=== PATIENT | male | born 1965 | race Caucasian/White ===

== ENCOUNTER 2019-09-05 12:47 | Outpatient (CLI) | payer BC, SELFPAY ==
[2019-09-05 13:44] LABS: Basophils Percent Auto 0.4 % (0.2-1.2); Eosinophils Absolute Auto 0.1 K/mm3 (0-0.3); Eosinophils Percent Auto 3.3 % (0-4.4); Hematocrit 29.6 % (42.0-52.0); Hemoglobin 9.5 g/dL (14.0-18.0); Immature Granulocyte Absolute 0.01 K/mm3 (0.00-0.031); Immature Granulocyte Percent A 0.4 % (0-0.5); Lymphocytes Percent Auto 16.7 % (18.3-44.2); Mean Corpuscular HGB Conc 32.1 g/dl (32-36); Mean Corpuscular Hemoglobin 31.5 pg (26-34); Mean Platelet Volume 10.4 fl (7.4-10.4); Monocytes Absolute Auto 0.1 K/mm3 (0.1-0.6); Monocytes Percent Auto 5.4 % (2.6-8.5); Neutrophils Absolute Auto 1.8 K/mm3 (1.3-6.7); Neutrophils Percent Auto 73.8 % (45.5-73.1); Red Blood Count 3.02 M/mm3 (4.6-6.20); Red Cell Distribution Width 14.3 % (11.5-14.5); White Blood Count 2.4 K/mm3 (4.5-10.0)
[2019-09-05 14:00] LABS: Calcium 8.6 mg/dL (8.4-10.2); Carbon Dioxide 11 mmol/L (22-30); Chloride 106 mmol/L (98-107); Estimated Glomerular Filt Rate 4; Glucose 167 mg/dL (75-110); Phosphorus 9.9 mg/dL (2.5-4.5); Potassium 4.3 mmol/L (3.4-5.0); Sodium 136 mmol/L (137-145)
[2019-09-05 14:13] LABS: Blood Urea Nitrogen 150 mg/dL (9-20)
[2019-09-05 14:26] LABS: Platelet Count Result 19 k/mm3 (150-375)
== END 2019-09-05 12:48 | disposition home or self-care (01) ==
PROVIDERS: Visit Provider Internal Medicine Nephrology
DX: N18.6 End stage renal disease (principal)
CPT/HCPCS: 36415; 80069; 85025; 85055

== ENCOUNTER 2021-05-06 02:57 | Inpatient (IN) | payer MEDICARE, BC, SELFPAY ==
[2021-05-06] VITALS (47 sets, daily range): BP systolic 96–178; BP diastolic 59–87; PULSE 70–113; RESP 10–24; TEMP 35.7–37; O2SAT 94–100; BMI 27.7
--- NOTE | ~2021-05-06 | XR_ITS ---
EXAMINATION: XR chest 1V portable DATE: 05/07/2021 05:56 INDICATION: Intubated TECHNIQUE: frontal view of the chest was obtained. COMPARISON: Chest radiograph dated 05/06/2021 FINDINGS: Endotracheal tube tip 6 cm above the chaz. Nasogastric tube tip in proximal side port in the body o f the stomach. Large-bore dual-lumen right internal jugular central venous catheter with distal tip a t the superior cavoatrial junction. Mild linear discoid atelectasis at the right lung base. No other airspace opacities, pulmonary edema, pleural effusion or pneumothorax. The cardiomediastinal silhouette is normal. IMPRESSION: 1. Endotracheal tube tip 6 cm above the chaz. Consider advancement by 3.4 cm. 2. Mild right basilar discoid atelectasis. Reviewed, dictated and finalized at location A.
--- NOTE | ~2021-05-06 | CT_ITS ---
EXAMINATION: CT brain wo con INDICATION: Head injury COMPARISON: None TECHNIQUE: Standard unenhanced head CT. The dose-length product (DLP) was 681.00 mGy-cm. The mA was a djusted according to patient size. Iterative reconstruction technique was employed. FINDINGS: There is no intracranial hemorrhage, acute infarction, or abnormal mass lesion. The ventric les are normal. There is no abnormal mass effect or midline shift. The grace-white matter differentiat ion is normal. The basal cisterns are patent. Intracranial calcified cerebral atherosclerosis is note d. The orbits are normal. There is a large left maxillary soft tissue hematoma. There is partial opac ification of the left maxillary sinus. IMPRESSION: 1. No acute intracranial abnormality. 2. Large left maxillary soft tissue hematoma. Reviewed, dictated and finalized at location B.
--- NOTE | ~2021-05-06 | XR_ITS ---
XR chest ET placement DATE: 05/06/2021 18:15 INDICATION: Intubation TECHNIQUE: Portable AP chest on 05/06/2021 at 1805 hours COMPARISON: 05/06/2021 portable AP chest at 0326 hours FINDINGS: ET tube placement since earlier today, with ET tube tip 4.8 cm above chaz in satisfactory position. NG tube is noted in the stomach. Right internal jugular dual lumen central venous catheter, distal tip at superior cavoatrial junction . No evidence of pneumothorax is noted. Minimal infiltrate or atelectasis is suggested in the lower lung zones. No pleural effusion or pulmon gera vascular congestion. Heart size is likely within normal limits considering magnification associated with AP projection. Th ere is aortic calcification. Diffuse osteopenia. IMPRESSION: ET tube and NG tube in satisfactory position Right internal jugular central venous catheter tip at superior cavoatrial junction; no pneumothorax Minimal infiltrate or atelectasis in the lower lung zones Reviewed, dictated and finalized at [facility]. Reviewed, dictated and finalized at location A. IMPRESSION: ET tube and NG tube in satisfactory position Right internal jugular central venous catheter tip at superior cavoatrial junct ion; no pneumothorax Minimal infiltrate or atelectasis in the lower lung zones
--- NOTE | ~2021-05-06 | CT_ITS ---
EXAMINATION: CT brain wo con DATE: 05/06/2021 17:14 INDICATION: Falls. On blood thinners. TECHNIQUE: Computed tomography (CT) of the head was performed without intravenous contrast. The mA wa s adjusted according to patient size. Iterative reconstruction technique was employed. Exam dose: 13 62.00 mGy-cm total exam DLP. COMPARISON: None FINDINGS: The examination is very limited due to prominent patient motion. Again noted is a very prominent left maxillary soft tissue hematoma. No skull fracture is evident. No intracranial mass lesion or obvious hemorrhage or subdural or epidural hematoma is evident; but ve ry small cerebral contusion or subdural hematoma might be obscured by the motion artifact. No midline shift or mass effect. Normal ventricular size. Bilateral maxillary sinus soft tissue thickening, prominent on the left.. IMPRESSION: Very limited examination due to motion Reviewed, dictated and finalized at [facility]. Reviewed, dictated and finalized at location A.
--- NOTE | ~2021-05-06 | CT_ITS ---
EXAMINATION: CT chest abdomen pelvis w con DATE: 05/06/2021 03:55 INDICATION: Fall with diffuse bruising throughout the body. TECHNIQUE: Computed tomography (CT) of the chest, abdomen, and pelvis was performed with 100 mL Omnip aque-350 intravenous contrast. Automated exposure control and iterative reconstruction technique were employed. The dose-length product was 1327.67 mGy-cm. COMPARISON: CT abdomen and pelvis dated 04/17/1990 FINDINGS: CHEST CT: Lungs are clear with no pneumonia, pulmonary edema, pleural effusion or pneumothorax. Heart size is n ormal. Atherosclerotic coronary artery calcific lesions. No pericardial effusion. Additional atherosc lerotic calcific a cyst along the normal caliber thoracic aorta with no dissection. No pathologically enlarged thoracic lymphadenopathy. Mildly comminuted nondisplaced fracture extending across the ster num with some sclerosis but no cortication along the nonunited fracture line suggesting subacute radiochemical technician nicity. Nonocclusive thrombus is seen within the right internal jugular vein proximal to a large-bore dual-lumen right internal jugular central venous catheter with distal tip of which is located at the superior cavoatrial junction. ABDOMEN/PELVIS CT: Shrunken and nodular cirrhotic liver. Multiple calcified gallstones in the dependent aspect of the ot herwise normal-appearing gallbladder with no gallbladder dilation or wall thickening to suggest acute cholecystitis. Prominent splenomegaly measuring 20.6 x 20.2 x 10.2 cm which along with large splenor enal collaterals consistent with portal venous hypertension. Pancreas bilateral adrenal glands are no rmal. Mild to moderate bilateral renal atrophy. 9 mm left renal cyst. Increased at multiple bilateral renal calyces which appears to layer dependently which could represent either excreted contrast or n onobstructing renal stones. No nephrolithiasis evident on the earlier noncontrast CT and favor the fo rmer. No abnormal bowel wall thickening or obstruction. Moderate amount of ascites scattered througho ut the abdomen and pelvis. Decompressed bladder is unremarkable. Small left and large right fat-conta ining inguinal hernias. No pathologically enlarged abdominal or pelvic lymphadenopathy. Moderate lumb osacral spondylosis. Otherwise mild degenerative skeletal changes throughout the more cephalad spine and at the bilateral hips and sacroiliac joints. No other acute osseous abnormality. IMPRESSION: 1. Likely subacute mildly comminuted nondisplaced nonunited sternal fracture. 2. Nonocclusive thrombus in the right internal jugular vein propagating proximally from the site of i nsertion of a right internal jugular central venous catheter. 3. Cirrhosis with moderate amount of ascites and marked splenomegaly and splenorenal collaterals cons istent with portal venous hypertension. 4. Cholelithiasis. 5. Small left and large right fat-containing inguinal hernias. Reviewed, dictated and finalized at location A. IMPRESSION: 1. Likely subacute mildly comminuted nondisplaced nonunited sternal fracture. 2. Nonocclusive thrombus in the right internal jugular vein propagating proxima lly from the site of insertion of a right internal jugular central venous ashely ter. 3. Cirrhosis with moderate amount of ascites and marked splenomegaly and spleno renal collaterals consistent with portal venous hypertension. 4. Cholelithiasis. 5. Small left and large right fat-containing inguinal hernias.
--- NOTE | ~2021-05-06 | CT_ITS ---
EXAMINATION: CT brain wo con DATE: 05/06/2021 20:56 INDICATION: Falls. Patient on anticoagulant therapy. TECHNIQUE: Computed tomography (CT) of the head was performed without intravenous contrast. The mA wa s adjusted according to patient size. Iterative reconstruction technique was employed. Exam dose: 60 5.33 mGy-cm total exam DLP. COMPARISON: 05/06/2021 CT brain FINDINGS: Bilateral carotid siphon internal carotid artery calcification. No intracranial mass lesion or hemorrhage or cerebrovascular accident, midline shift or mass effect o r subdural or epidural hematoma is detected. Normal ventricular size. There is a fluid level in left maxillary sinus. No fracture or bone destruction of the cranial vault. IMPRESSION: Cerebral atherosclerosis No significant intracranial abnormality Reviewed, dictated and finalized at [facility]. Reviewed, dictated and finalized at location A.
--- NOTE | ~2021-05-06 | XR_ITS ---
EXAMINATION: XR chest 1V portable DATE: 05/06/2021 03:28 INDICATION: Shortness of breath TECHNIQUE: frontal view of the chest was obtained. COMPARISON: Chest radiograph dated 01/22/2019 FINDINGS: A large-bore dual-lumen right internal jugular central venous port catheter with distal tip at the ca udal superior vena cava. Persistent mild streaky left basilar atelectasis. No new airspace opacities, pulmonary edema, pleural effusion or pneumothorax. The cardiomediastinal silhouette is normal. IMPRESSION: 1. Mild left basilar atelectasis. Reviewed, dictated and finalized at location A.
--- NOTE | ~2021-05-06 | XR_ITS ---
EXAMINATION: XR chest 1V portable DATE: 05/13/2021 05:44 INDICATION: Respiratory failure. TECHNIQUE: A single frontal view of the chest was obtained. COMPARISON: Chest single view 05/12/2021 FINDINGS: There are airspace opacities in medial left lower lobe. No pleural effusion or pneumothorax . The heart size is normal. A right internal jugular central venous catheter is seen with tip at the superior cavoatrial junction. IMPRESSION: 1. Worsened airspace opacities in medial left lower lobe, consistent with atelectasis versus pneumoni a. Reviewed, dictated and finalized at location A. ON REPAIRER IMPRESSION: 1. Worsened airspace opacities in medial left lower lobe, consistent with atele ctasis versus pneumonia.
--- NOTE | ~2021-05-06 | XR_ITS ---
EXAMINATION: XR chest 1V portable DATE: 05/10/2021 05:43 INDICATION: Respiratory failure. TECHNIQUE: A single frontal view of the chest was obtained. COMPARISON: Chest single view 05/09/2021, chest CT 05/06/2021 FINDINGS: There is mild atelectasis at left lung base. There are interstitial opacities in the mid an d lower lung zones, consistent with mild pulmonary edema. No pleural effusion or pneumothorax. The he art size is normal. There is a right internal jugular central venous catheter with tip in proximal ri ght atrium. IMPRESSION: 1. Mild pulmonary edema. Reviewed, dictated and finalized at location A. ESSOR OF SOCIAL WORK IMPRESSION: 1. Mild pulmonary edema.
--- NOTE | ~2021-05-06 | CT_ITS ---
EXAMINATION: CT facial & cervical spine wo DATE: 05/06/2021 03:54 INDICATION: Head injury TECHNIQUE: Computed tomography (CT) of the maxillofacial region and cervical spine was performed with out intravenous contrast. The dose-length product (DLP) was 467.38 mGy-cm. Automated exposure control and iterative reconstruction technique were employed. COMPARISON: None FINDINGS: MAXILLOFACIAL CT: There is a large left maxillary soft tissue hematoma. No underlying fracture is identified. The globe s and orbits are intact. There is no facial bone fracture. There is mild mucosal thickening of the ma xillary sinuses. CERVICAL SPINE CT: There is no fracture, dislocation, or subluxation. The vertebral body heights and intervertebral disc spaces are normal. The odontoid is intact. There is mild multilevel facet and uncovertebral joint os teoarthritis. Prevertebral soft tissues are normal. There is fibrous in the posterior C1 arch. There is a partially imaged right internal jugular catheter. IMPRESSION: 1. Large left maxillary soft tissue hematoma without facial bone fracture. 2. Mild cervical spondylosis without acute findings. Reviewed, dictated and finalized at location B.
--- NOTE | ~2021-05-06 | CT_ITS ---
EXAMINATION: CTA UE LT INDICATION: Left upper extremity swelling. TECHNIQUE: Computed tomographic images of the left upper extremity were obtained after the administra tion of 100 cc of Omnipaque 350 intravenous contrast. The dose-length product (DLP) was 88.45 mGy-cm. Automated exposure control and iterative reconstruction technique were employed. COMPARISON: None FINDINGS: There is an approximately 3.2 x 2.1 x 3.17 soft tissue abscess overlying the dorsal aspect of the distal radius and carpals. The vascular structures appear to be intact. No underlying osseous abnormality is identified. The joint spaces are maintained. There is no fracture. IMPRESSION: 1. Dorsal soft tissue abscess overlying distal radius and carpals. Reviewed, dictated and finalized at location A. K FEEDER
--- NOTE | ~2021-05-06 | XR_ITS ---
EXAMINATION: XR chest 1V portable DATE: 05/11/2021 05:52 INDICATION: Respiratory failure. TECHNIQUE: A single frontal view of the chest was obtained. COMPARISON: Chest single view 05/10/2021, chest CT 05/06/2021 FINDINGS: There is mild atelectasis at left lung base. There are interstitial opacities in the mid an d lower lung zones. No pleural effusion or pneumothorax. The heart size is normal. A right internal j ugular central venous catheter is seen with tip at the superior cavoatrial junction. IMPRESSION: 1. Stable interstitial opacities in the mid and lower lung zones, likely mild pulmonary edema. 2. Mild atelectasis at left lung base. Reviewed, dictated and finalized at location A. OL INSPECTOR IMPRESSION: 1. Stable interstitial opacities in the mid and lower lung zones, likely mild p ulmonary edema. 2. Mild atelectasis at left lung base.
--- NOTE | ~2021-05-06 | US_ITS ---
EXAMINATION: US art doppler w press UE BI EXAM DATE: 05/13/2021 18:01 INDICATION: Left arm pain, edema. TECHNIQUE: Segmental pressures and plethysmographic and Doppler waveforms of the upper extremity fausto donavan were obtained. There is no prior study for comparison. FINDINGS: Right and left brachial artery pressures of 161 mm Hg and could not obtain mm Hg, respectively, are ( normal difference <= 30 mmHg). RIGHT: Right ulnar/brachial arterial Doppler ratio could not obtain ( mmHg). Right radial/brachial arterial Doppler ratio could not obtain ( mmHg). Right index finger/brachial index 0.86, 139 mmHg. The waveforms are biphasic LEFT: Left ulnar/brachial arterial Doppler ratio could not obtain ( mmHg). Left radial/brachial arterial ratio could not obtain ( mmHg). Left index finger/brachial index could not obtain (no brachial pressure) but 172 mmHg. The waveforms are biphasic IMPRESSION: Could not obtain ulnar or radial/brachial ratios. Biphasic waveforms. Reviewed, dictated and finalized at location A. D BANK LABORATORY PROFESSIONAL IMPRESSION: Could not obtain ulnar or radial/brachial ratios. Biphasic wavefor ms.
--- NOTE | ~2021-05-06 | XR_ITS ---
EXAMINATION: XR chest 1V portable DATE: 05/12/2021 06:02 INDICATION: Respiratory failure. TECHNIQUE: A single frontal view of the chest was obtained. COMPARISON: Chest single view 05/11/2021, chest CT 05/06/2021 FINDINGS: There are interstitial opacities in the mid and lower lung zones. No pleural effusion or pn eumothorax. The heart size is normal. A right internal jugular central venous catheter is seen with t ip at the superior cavoatrial junction. IMPRESSION: 1. Stable interstitial opacities in the mid and lower lung zones, likely at least predominantly due t o the extensive gynecomastia seen by CT. Mild pulmonary edema cannot be excluded. Reviewed, dictated and finalized at location A. UM BLOCK SETTER IMPRESSION: 1. Stable interstitial opacities in the mid and lower lung zones, likely at sh[address]ene st predominantly due to the extensive gynecomastia seen by CT. Mild pulmonary e mat cannot be excluded.
--- NOTE | ~2021-05-06 | US_ITS ---
EXAMINATION: US venous doppler UE EXAM DATE: 05/13/2021 18:01 INDICATION: Left arm edema and pain. TECHNIQUE: Multiple grayscale, color flow, Doppler sonographic images of the left upper extremity vei ns obtained by technologist. Compression was performed where able. There is no prior study for jeanna coronado. FINDINGS: Left upper extremity: Jugular vein: ------------> Normal. Subclavian vein: --------> Normal. Axillary vein:------------> Normal. Brachial vein:-----------> Normal. Basilic vein: ------------> Normal. Cephalic vein: ----------> Normal. Radial vein: ------------> Normal. Ulnar vein: > Normal. Subcutaneous edema noted. IMPRESSION: No deep venous thrombosis of the left upper extremity. Reviewed, dictated and finalized at location A. TER FIXER
--- NOTE | ~2021-05-06 | XR_ITS ---
EXAMINATION: XR chest 1V portable DATE: 05/09/2021 05:27 INDICATION: Respiratory failure. TECHNIQUE: A single frontal view of the chest was obtained. COMPARISON: Chest single view 05/08/2021, chest CT 05/06/2021 FINDINGS: The right lateral costophrenic angle is excluded. There is no pneumonia, pleural effusion, or pneumothorax. The heart size is normal. The endotracheal tube tip is 5.4 cm above the chaz. The nasogastric tube tip is beyond the inferior margin of the radiograph, but at least to the stomach. A right internal jugular central venous catheter is seen with tip in the superior vena cava. IMPRESSION: 1. No acute cardiopulmonary disease. Reviewed, dictated and finalized at location A. E HELPER
--- NOTE | ~2021-05-06 | XR_ITS ---
EXAMINATION: XR chest 1V portable DATE: 05/08/2021 08:25 INDICATION: Respiratory failure TECHNIQUE: frontal view of the chest was obtained. COMPARISON: Chest radiograph dated 05/07/2021 FINDINGS: Endotracheal tube tip 5.5 cm above the chaz. Nasogastric tube extends below the left hemidiaphragm with distal tip collimated off the study. Large-bore dual-lumen right internal jugular central venou s catheter with distal tip in the caudal superior vena cava. No airspace opacities, pulmonary edema, pleural effusion or pneumothorax. The cardiomediastinal silho uette is normal. IMPRESSION: 1. Lines and tubes in expected positions. Could consider advancement of the endotracheal tube by 3 cm . 2. No evident acute cardiopulmonary disease. Reviewed, dictated and finalized at location A. GER PHARMACEUTICAL IMPRESSION: 1. Lines and tubes in expected positions. Could consider advancement of the end otracheal tube by 3 cm. 2. No evident acute cardiopulmonary disease.
--- NOTE | ~2021-05-06 | XR_ITS ---
EXAMINATION: XR hand LT 2V EXAM DATE: 05/12/2021 22:39 INDICATION: Fall, left hand pain, swelling, redness. TECHNIQUE: Frontal and lateral projections of the left hand. There is no prior study for comparison . FINDINGS: Metacarpal bones of left hand are unremarkable. There are no bony erosions identified. The re are no acute fractures or dislocations identified. There is no subcutaneous gas. There is soft ti ssue swelling over the entire hand and wrist. There are no radiopaque foreign bodies. IMPRESSION: 1. Left hand exam without acute osseous findings. 2. Soft tissue swelling. Reviewed, dictated and finalized at location A. STARTER
--- NOTE | ~2021-05-06 | XR_ITS ---
XR abdomen NG/feed tube insert DATE: 05/06/2021 18:15 INDICATION: Orogastric tube insertion TECHNIQUE: Portable AP view on 05/06/2021 1808 hours COMPARISON: None FINDINGS: Orogastric tube is present in the body of stomach. IMPRESSION: Orogastric tube in body of stomach Reviewed, dictated and finalized at [facility]. Reviewed, dictated and finalized at location A.
--- NOTE | 2021-05-06 03:19 | ECG_ITS ---
Measurements Intervals [place] Rate: 80 P: 58 ND: 269 QRS: 19 QRSD: 100 T: 52 QT: 409 QTc: 475 Interpretive Statements SINUS RHYTHM WITH FIRST DEGREE AV BLOCK DELAYED PRECORDIAL R/S TRANSITION BASELINE ARTIFACT- V2 ABNORMAL ECG Electronically Signed On 05-06-2021 6:06:03 CDT by Refugio Cano D.O.
[2021-05-06 03:34] LABS: Basophils Percent Auto 0.3 % (0.2-1.2); Eosinophils Absolute Auto 0.1 K/mm3 (0-0.3); Eosinophils Percent Auto 1.6 % (0-4.4); Hematocrit 24.7 % (42.0-52.0); Hemoglobin 8.1 g/dL (14.0-18.0); Immature Granulocyte Absolute 0.04 K/mm3 (0.00-0.031); Immature Granulocyte Percent A 0.6 % (0-0.5); Immature Platelet Fraction Pct 3.2 % (0.9-11.2); Lymphocytes Absolute Auto 0.62 K/mm3 (0.9-3.2); Lymphocytes Percent Auto 8.9 % (18.3-44.2); Mean Corpuscular HGB Conc 32.8 g/dl (32-36); Mean Corpuscular Hemoglobin 33.1 pg (26-34); Mean Corpuscular Volume 100.8 fl (80-100); Mean Platelet Volume 10.4 fl (7.4-10.4); Monocytes Absolute Auto 0.4 K/mm3 (0.1-0.6); Neutrophils Absolute Auto 5.8 K/mm3 (1.3-6.7); Neutrophils Percent Auto 83.6 % (45.5-73.1); Platelet Count Result 26 k/mm3 (150-375); Red Blood Count 2.45 M/mm3 (4.6-6.20); Red Cell Distribution Width 12.8 % (11.5-14.5); White Blood Count 6.9 K/mm3 (4.5-10.0)
--- NOTE | 2021-05-06 03:47 | PC.NURSE ---
Pt in CT at this time.
--- NOTE | 2021-05-06 03:52 | ED.FALL ---
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 Patient states he fell awhile ago and he hasn't been to dialysis for 2 weeks. States unsure where all his bruises came from or how long theyve been there. Patient alert, confused, oriented x 3; states he stopped drinking about a month ago. Arrives with bruises to neck, chest wall, abdomen, flank, jaundiced, with altered mental status. Related Data Home Medications Medication Instructions Recorded Confirmed amlodipine 05/06/21 amoxicillin 05/06/21 avatrombopag [Doptelet (15 tab mg PO 05/06/21 pack)] ciprofloxacin HCl 05/06/21 halobetasol propionate applic TOPICAL 05/06/21 imiquimod TOPICAL 05/06/21 lisinopril 05/06/21 nadolol 05/06/21 pantoprazole PO 05/06/21 peg 3350-electrolytes 05/06/21 sevelamer carbonate 05/06/21 sildenafil 05/06/21 trazodone 05/06/21 Allergies Allergy/AdvReac Type Severity Reaction Status Date / Time No Known Allergies Allergy Unknown Verified 01/22/19 15:29 Review of Systems Review of Systems: ROS unobtainable: Yes unobtainable due to mental status Exam Narrative: General: alert, afebrile, confused, unable to answer all questions Head: normocephalic, R large cheek hematoma with bruising, firm, no crepitus Eyes: EOMI bilaterally, scleral icterus , no injection ENT: dry mucous membranes, oropharynx patent, no rhinorrhea Neck: supple, trachea midline, no JVD Chest: equal chest rise bilaterally, no chest wall trauma noted Lungs: decreased BS B bases, respirations unlabored CV: regular rate, 1-2+ NATALY B, calf size equal bilaterally Abd: soft, fluid wave noted, non-tender, no rebound, no gaurding EXT: no deformity noted, moving all extremities equally; multiple abrasions B hands, arms Skin: warm, dry, jaundiced Neuro: alert, oriented x 2-3; confused answers, slow to respond Psych: affect appropriate, thought content confused Course Course Emergency Course: Patient with hyperkalemia, EKG results with 1st degree av block and QT widening; given albuterol, insulin/D50, bicarb; patient Ammonia 311; given lactulose enema; Need to have coagulopathy-- platelets ordered, FFP ordered; will hold on vitamin K for now. INR 1.8; patient CXR without acute process, patient is 100% on RA, abdomen distended but not tender, no elevated WBC or signs of peritonitis. HgB 8.1, higher than usual for patient, CT head without bleed, no evidence of acute bleed. Dr Norris consulted regarding dialysis and chemistry results-- aware of need for access. Reevaluation(s) Reevaluation #1: Patient remains calm, confused, NAD with no complaints, alert with pulse ox 100% RA; protecting airway despite AMS Date: 05/06/21 Time: 05:00 Consultations Consultation #1: Dr Bowen, research clerk; spoke about correcting coagulopathy, hyperkalemia, and ammonia will accept in ICU Date: 05/06/21 Time: 04:30 Consultation #2: Dr Norris knows patient who has been missing for weeks will consult, need to fix coagulopathy and then have femoral line placed Date: 05/06/21 Time: 04:40 Date: 05/06/21 Time: 06:15 Additional Consultation(s): Spoke to Dr López regarding patient admission and plan Vital Signs Vital signs: Vital Signs Temperature 35.8 C L 05/06/21 03:06 Pulse Rate 87 05/06/21 03:06 Respiratory Rate 24 H 05/06/21 03:06 Blood Pressure 177/87 H 05/06/21 03:06 Pulse Oximetry 100 05/06/21 03:06 Temperature 36.1 C L 05/06/21 07:00 Pulse Rate 89 05/06/21 07:00 Respiratory Rate 11 L 05/06/21 07:00 Blood Pressure 162/81 H 05/06/21 07:00 Pulse Oximetry 100 05/06/21 07:00 MDM - Fall Differential Diagnosis Differential diagnosis: Likely other
[2021-05-06 03:59] LABS: Ethanol < 10 mg/dL (<10)
[2021-05-06] MEDS: SODIUM CHLORIDE 0.9% IV 1,000 ML 999 ML IV CONT (03:59)
[2021-05-06] MEDS: ONDANSETRON INJ 4 MG/2 ML VIAL IV PUSH ×3 (03:59→13:18)
[2021-05-06 04:02] LABS: INR 1.8; Prothrombin Time 20.5 Seconds (11.1-14.7)
[2021-05-06 04:03] LABS: Partial Thromboplastin Time 39.1 SECONDS (22.3-36.8)
[2021-05-06 04:13] LABS: Ammonia 311 umol/L (9-30)
[2021-05-06 04:13] LABS: Alanine Aminotransferase 21 U/L (4-50); Albumin Level 4.3 g/dL (3.5-5.1); Alkaline Phosphatase 176 U/L (38-126); Aspartate Amino Transferase 35 U/L (17-59); Carbon Dioxide < 5 mmol/L (22-30); Chloride 104 mmol/L (98-107); Glucose 221 mg/dL (65-110); Lipase 863 U/L (23-300); Magnesium 1.8 mg/dL (1.6-2.3); Potassium 6.3 mmol/L (3.4-5.0); Sodium 141 mmol/L (137-145)
[2021-05-06 04:21] LABS: Blood Urea Nitrogen > 240 mg/dL (9-20)
[2021-05-06] MEDS: ALBUTEROL SULFATE NEB 2.5 MG/0.5 ML INH INHALATION (04:34)
[2021-05-06] MEDS: DEXTROSE 50% 25 GM/50 ML SYRINGE IV PUSH (04:36)
[2021-05-06] MEDS: INSULIN HUMAN REGULAR (*BKC) 100 UNITS/ML 10 UNITS SUB-Q (04:37)
[2021-05-06 04:39] LABS: Estimated Glomerular Filt Rate 2
[2021-05-06] MEDS: SODIUM BICARBONATE 8.4% 50 MEQ/50 ML SYRINGE IV PUSH (04:46)
[2021-05-06] MEDS: LACTULOSE ENEMA 200 GM/1,000 ML ENEMA RECTAL (05:41)
--- NOTE | 2021-05-06 05:54 | PC.NURSE ---
pt states he produces urine sometimes. attempted straight catheter per EDP Maci, but no urine was produced. EDP aware.
--- NOTE | 2021-05-06 06:06 | PC.NURSE ---
Lactulose enema given per MAMIE Lux. pt tolerated well.
[2021-05-06] MEDS: SODIUM CHLORIDE 0.9% IV 250 ML 30 ML IV CONT ×2 (07:09→08:00)
[2021-05-06] MEDS: TUBING, BLOOD PLUM PUMP TUBING 1 EACH XX (07:09)
--- NOTE | 2021-05-06 07:55 | PM.IMHP ---
H&P: HPI History of Present Illness Date/Time: 05/06/21 07:55 HPI. 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 He presented yesterday to ER stating that he fell 2 weeks ago and hit his head at home. He also stated that he has not been to dialysis for 3 weeks, mainly because he felt too tired to drive his car to the dialysis does with that unit. The patient is well known from Dr. Norris who is his distributor publications in the community. Per his distributor publications, Dr Norris, he was called several from the dialysis unit to try to come in but he always came up with excuses and never showed.. Each time he reschedule to make another appointment to get dialysis he does not come. He has been to the ER at another facility to check on his labs and they were okay enough for him to be discharged to follow-up in dialysis but he did not follow-up. He also had labs done about 5 days ago at [facility] which showed that his potassium was not too high and he was going to come to dialysis the next day but he did not show up for that either. He also has been noncompliant with process to get a AV graft fistula created for dialysis. Patient is a poor historian any keeps on changing his story when asked him he told me that he fell at work which he later clarify that he works from home and hit his face. In addition, he admits to having nausea and couple of episodes of vomiting without any blood in. he has some residual kidney function, but could not quantify; he is unable to give me any meaningful information or details about it He has bruising on his left side of abdomen which he states happened when he fell he also has multiple rows in anterior part of the chest which he is not sure of. He denies any recent assault or abuse. All the systems were reviewed and were negative. This evening after dialysis the patient had nausea vomiting, then had a tonico-clonic seizure. Stat head CT was inconclusive. Patient had bitten his tongue, had abundant bloody secretion and had a 2nd episode of seizure. He was medicated with Ativan 6 mg IV, and Keppra 1 g IV. He was not able to protect his airways and was intubated at the bedside by DEMAND PLANNING MANAGER Verenice García. Chief Complaint: missed hemodialysis. Review of Systems Review of Systems: All systems reviewed & are unremarkable except as noted in HPI and below ( HPI) [facility] Past Medical History Medical History Alcoholic liver failure Cirrhosis Coagulopathy Encephalopathy, hepatic Erythropoietin deficiency anemia ESRD needing dialysis Renal osteodystrophy Thrombocytopenia Social History Social History Smoking status: Never smoker Alcohol intake: current Drinks per week: 3 Substance use: never Spiritual care concerns: No Meds Home Medications and Allergies Home Medications Medication Instructions Recorded Confirmed Type amlodipine 05/06/21 History amoxicillin 05/06/21 History avatrombopag [Doptelet (15 tab mg PO 05/06/21 History pack)] ciprofloxacin HCl 05/06/21 History halobetasol propionate applic TOPICAL 05/06/21 History imiquimod TOPICAL 05/06/21 History lisinopril 05/06/21 History nadolol 05/06/21 History pantoprazole PO 05/06/21 History peg 3350-electrolytes 05/06/21 History sevelamer carbonate 05/06/21 History sildenafil 05/06/21 History trazodone 05/06/21 History Allergies Allergy/AdvReac Type Severity Reaction Status Date / Time No Known Allergies Allergy Unknown Verified 01/22/19 15:29 Vital Signs Vital Signs - 24 hr 05/06/21 03:06 05/06/21 04:00 05/06/21 04:35 Temperature 96.5 F L Pulse Rate 87 83 83 Respiratory Rate 24 H 14 12 Blood Pressure 177/87 H 148/71 H
[2021-05-06] MEDS: LACTULOSE 20 GM/30 ML UDC PO ×3 (09:02→20:16)
[2021-05-06] MEDS: PANTOPRAZOLE SODIUM IV 40 MG VIAL IV PUSH (09:02)
[2021-05-06] MEDS: nadoloL 20 MG TABLET PO (09:02)
--- NOTE | 2021-05-06 09:14 | PC.NURSE ---
Spoke to Arianne METROLOGY TECHNICIAN. Made aware of radiology discrepancy and dictated report by Harinder Radiologist includes nondisplaced sternal fx. She voiced understanding and stated she would notify attending.
[2021-05-06 09:41] LABS: Anion Gap 28 mmol/L (8-16); Calcium 9.7 mg/dL (8.4-10.2); Carbon Dioxide 10 mmol/L (22-30); Chloride 106 mmol/L (98-107); Estimated CRCL calculation 3 ml/min; Estimated Glomerular Filt Rate 2; Glucose 147 mg/dL (65-110); Potassium 5.8 mmol/L (3.4-5.0); Sodium 144 mmol/L (137-145)
[2021-05-06 09:44] LABS: Blood Urea Nitrogen > 240 mg/dL (9-20)
[2021-05-06] MEDS: SODIUM POLYSTYRENE SULFONONATE 15 GM/60 ML BTL 30 GM PO (11:42)
--- NOTE | 2021-05-06 11:56 | PM.CNNEP ---
Assessment and Plan Assessment and plan (1) ESRD needing dialysis: Code(s): N18.6 - End stage renal disease; Z99.2 - Dependence on renal dialysis Status: Acute Assessment and Plan: The patient has end-stage renal disease. He has been dialysis for 3 weeks. Amazingly his potassium is not very high and his fluid status is not too bad. His BUN is extremely high. He does seem to be somewhat uremic because his memory and calculations seem to be a bit off. He does want to restart dialysis. His potassium was a little high so will do a 2 K bath. Because it is been 3 weeks since he has been on dialysis, worry about this week will review if we would jump right back into a full treatment so I am going to do in for 2-1/2 hours and 250 blood flow. We will do him again tomorrow with a little bit stronger of a dialysis. (2) Alcoholic liver failure: Code(s): K70.40 - Alcoholic hepatic failure without coma Status: Acute Assessment and Plan: The patient has not been taking lactulose. His ammonia levels very high. We will restart this. (3) Encephalopathy, hepatic: Code(s): K72.90 - Hepatic failure, unspecified without coma Status: Acute Assessment and Plan: Ammonia level is high (4) Jugular vein thrombosis, right: Code(s): I82.890 - Acute embolism and thrombosis of other specified veins Status: Acute Assessment and Plan: The patient has a thrombosis in the right jugular vein. This is where the catheter is. All of the thrombus is around the catheter. The tip of the catheter is at the cavoatrial fungal junction and there was no clot in the atrium. The patient needs dialysis today and is anticoagulated by his disease state. It is not uncommon for patients to have clot around the catheter when the catheter is been in for this long. The clot might have been there for a long period of time. No imaging has been done in the last year or so. Our choices are to not use the catheter and put a new temporary catheter in. However there is a substantial risk for bleeding if we do this. The other option is to go ahead and use the catheter and see if it still works. Discussed at length with Dr. Flores who has recently worked on his catheter and with Dr. Bowen. Weighing the risks and the benefits, I think we should try using the catheter. If it works okay we can continue to use the catheter. Consider putting a new catheter in down the line. However if the patient would agree to just have a graft placed soon that might be the better way to go especially since the graft would go in the left side and there is no clot on the left side now but there might be if we put a new catheter in. So at this point I would recommend going had using the catheter. If it works then will continue to use it. If it does not then will do a temporary catheter today and a new catheter we replaced on Sunday by surgery. (5) Coagulopathy: Code(s): D68.9 - Coagulation defect, unspecified Status: Acute Assessment and Plan: Due to liver disease Getting FFP (6) Thrombocytopenia: Code(s): D69.6 - Thrombocytopenia, unspecified Status: Acute Assessment and Plan: Due to increased reticular endothelial uptake. Getting platelets (7) Erythropoietin deficiency anemia: Code(s): D63.1 - Anemia in chronic kidney disease Status: Acute Assessment and Plan: Will give Epogen with dialysis (8) Renal osteodystrophy: Code(s): N25.0 - Renal osteodystrophy Status: Acute Assessment and Plan: Will get a phosphorus in the morning History of Present Illness Reason for Consult Consult date: 05/06/21 Chief Complaint Chief complaint: ESRD needing dialysis/liver failure/hepatic enceph History of Present Illness Narrative: Jj is in unfortunate 55-year-old gentleman who has multiple medical problems including alcoholic cirrhosis, end-stage renal dis
--- NOTE | 2021-05-06 12:16 | WPDCNINT ---
Assessment and Plan Assessment and plan (1) ESRD needing dialysis: Code(s): N18.6 - End stage renal disease; Z99.2 - Dependence on renal dialysis Status: Acute Assessment and Plan: noncompliant and missed dialysis for 3 weeks not in volume overload but significantly uremic and hyperkalemic hyperkalemia was temporally treated with medications in the ER and appears little better patient will be dialyzed today discussed with Dr. Norris. He will request hemodialysis nurse to check his catheter to see if it is working. If the catheter is working will be used for hemodialysis and if not will place a new temporary hemodialysis catheter at femoral site. (2) Hyperkalemia: Code(s): E87.5 - Hyperkalemia Status: Acute Assessment and Plan: patient received IV insulin and dextrose in the ER along with an amp of bicarb repeat potassium is better at 5.8 Kayexalate ordered plan to dialyze patient today (3) Hematoma: Code(s): T14.8XXA - Other injury of unspecified body region, initial encounter Status: Acute Assessment and Plan: discussed with Dr. Noriega General surgery. It does not need to be drained and should resorb conservatively. It does not appear infected at patient has normal white cell count and denies any pain at the site obviously avoid any anticoagulation at this time (4) Fall: Code(s): W19.XXXA - Unspecified fall, initial encounter Status: Acute Assessment and Plan: Not sure if patient ever lost consciousness he is a poor historian unable to give any details and this happened almost 2 weeks ago as per him. Imaging reviewed for injuries and shows last show maxillary soft tissue hematoma CT Head IMPRESSION: 1. No acute intracranial abnormality. 2. Large left maxillary soft tissue hematoma. CT facial and cervical spine IMPRESSION: 1. Large left maxillary soft tissue hematoma without facial bone fracture. 2. Mild cervical spondylosis without acute findings. CT T/A/P IMPRESSION: 1. Likely subacute mildly comminuted nondisplaced nonunited sternal fracture. 2. Nonocclusive thrombus in the right internal jugular vein propagating proximally from the site of insertion of a right internal jugular central venous catheter. 3. Cirrhosis with moderate amount of ascites and marked splenomegaly and splenorenal collaterals consistent with portal venous hypertension. 4. Cholelithiasis. 5. Small left and large right fat-containing inguinal hernias. (5) Encephalopathy, hepatic: Code(s): K72.90 - Hepatic failure, unspecified without coma Status: Acute Assessment and Plan: start lactulose and rifaximin monitor ammonia (6) Coagulopathy: Code(s): D68.9 - Coagulation defect, unspecified Status: Acute Assessment and Plan: likely secondary to cirrhosis patient is getting FFP for anticipated invasive procedure in the form of placement of temporary hemodialysis catheter (7) Thrombocytopenia: Code(s): D69.6 - Thrombocytopenia, unspecified Status: Acute Assessment and Plan: secondary to cirrhosis and alcohol abuse patient is getting platelet transfusion for invasive procedure (8) Jugular vein thrombosis, right: Code(s): I82.890 - Acute embolism and thrombosis of other specified veins Status: Acute Assessment and Plan: Discuss with surgery. The plan to remove the catheter next week and place a new tunneled dialysis catheter on the other side patient is not a candidate for anticoagulation due to thrombocytopenia coagulopathy and now a large hematoma on his maxillary area (9) Nausea & vomiting: Code(s): R11.2 - Nausea with vomiting, unspecified Status: Acute Assessment and Plan: likely be secondary to uremia p.r.fran Larkin (10) Pancreatitis: Code(s): K85.90 - Acute pancreatitis without necrosis or infection, unspecified Status: Acute Assessme
--- NOTE | 2021-05-06 12:32 | PM.CNGS ---
Assessment and Plan Assessment and plan (1) ESRD needing dialysis: Code(s): N18.6 - End stage renal disease; Z99.2 - Dependence on renal dialysis Status: Acute Assessment and Plan: will attempt HD thru current TDC, if it does not work then will need temp cath and new TDC placed (2) Jugular vein thrombosis, right: Code(s): I82.890 - Acute embolism and thrombosis of other specified veins Status: Acute Assessment and Plan: cath in for awhile and clot only noted at insertion site, ok to attempt to use (3) Coagulopathy: Code(s): D68.9 - Coagulation defect, unspecified Status: Acute Assessment and Plan: pt given FFP and plts (4) Alcoholic liver failure: Code(s): K70.40 - Alcoholic hepatic failure without coma Status: Acute Assessment and Plan: mgmt per primary team, increased surgical risk History of Present Illness Consult details Consult date: 05/06/21 Reason for consult: other (ESRD, HD access) Requesting physician: Lennox Bowen MD Narrative: The patient is year old male with multiple medical issues including end-stage renal disease, alcoholic cirrhosis presenting to the emergency department with altered mental status, weakness, large facial hematoma. The patient is very noncompliant and has not had dialysis for at least the last 2-3 weeks. The patient currently has a right sided tunneled hemodialysis catheter with clot noted in the right internal jugular vein at insertion site. General surgery now consulted for possible access, evaluation of facial hematoma. Of note, the patient is a very poor history and history is obtained via chart. Review of Systems Review of Systems: ROS unobtainable: Yes unobtainable due to medical condition and unobtainable due to mental status PMFSH Past Medical History Medical History Alcoholic liver failure Cirrhosis Coagulopathy Encephalopathy, hepatic Erythropoietin deficiency anemia ESRD needing dialysis Renal osteodystrophy Thrombocytopenia Social History Social History Smoking status: Never smoker Alcohol intake: current Drinks per week: 3 Substance use: never Spiritual care concerns: No Meds Home Medications and Allergies Home Medications Medication Instructions Recorded Confirmed Type amlodipine 05/06/21 History amoxicillin 05/06/21 History avatrombopag [Doptelet (15 tab mg PO 05/06/21 History pack)] ciprofloxacin HCl 05/06/21 History halobetasol propionate applic TOPICAL 05/06/21 History imiquimod TOPICAL 05/06/21 History lisinopril 05/06/21 History nadolol 05/06/21 History pantoprazole PO 05/06/21 History peg 3350-electrolytes 05/06/21 History sevelamer carbonate 05/06/21 History sildenafil 05/06/21 History trazodone 05/06/21 History Allergies Allergy/AdvReac Type Severity Reaction Status Date / Time No Known Allergies Allergy Unknown Verified 01/22/19 15:29 Vital Signs Vital Signs - 24 hr 05/06/21 03:06 05/06/21 04:00 05/06/21 04:35 Temperature 35.8 C L Pulse Rate 87 83 83 Respiratory Rate 24 H 14 12 Blood Pressure 177/87 H 148/71 H Pulse Oximetry 100 99 05/06/21 04:42 05/06/21 05:04 05/06/21 06:25 Temperature Pulse Rate 83 88 93 Respiratory Rate 12 13 12 Blood Pressure 169/82 H 178/76 H Pulse Oximetry 100 100 05/06/21 07:00 05/06/21 07:20 05/06/21 07:21 Temperature 36.1 C L 36.1 C L Pulse Rate 89 84 85 Respiratory Rate 11 L 10 L 10 L Blood Pressure 162/81 H 157/78 H 157/78 H Pulse Oximetry 100 100 100 05/06/21 07:32 05/06/21 07:59 05/06/21 08:00 Temperature 36.1 C L Pulse Rate 85 89 Respiratory Rate 18 13 Blood Pressure 159/77 H 168/82 H 168/82 H Pulse Oximetry 100 100 05/06/21 08:20 05/06/21 09:02 05/06/21 09:55 Temperature 35.7 C L 36.3 C L Pulse Rate 87 87 94 Respiratory Rate 13 11
[2021-05-06] MEDS: EPOETIN ALFA-EPBX 10,000 UNITS/ML VIAL 10000 UNITS IV PUSH (14:49)
--- NOTE | 2021-05-06 15:36 | PC.NURSE ---
Patient arrived to ICU bed 2 . Placed on monitor , ffp infusing , patient belongings placed in cabinent. ICU attending at bedside assessing patients.
[2021-05-06 15:46] LABS: Hepatitis B Surface Antigen Negative (Negative)
[2021-05-06 15:51] LABS: Hepatitis B Core IgM Result Negative (Negative)
[2021-05-06 16:11] LABS: Hepatitis B Surface Anti Res Indeterminate
[2021-05-06] MEDS: diphenhydrAMINE HCl INJ 50 MG/ML VIAL 25 MG IV PUSH (16:30)
[2021-05-06 16:51] LABS: Glucose Point of Care 109 mg/dl (65-105)
--- NOTE | 2021-05-06 16:55 | ECG_ITS ---
Measurements Intervals [place] Rate: 101 P: 78 ME: 223 QRS: 46 QRSD: 98 T: 65 QT: 371 QTc: 483 Interpretive Statements SINUS TACHYCARDIA WITH FIRST DEGREE AV BLOCK DELAYED PRECORDIAL R/S TRANSITION BORDERLINE ST-T WAVE ABNORMALITY- ANTEROLAT/HIGH LAT LEADS BASELINE ARTIFACT- I, II, III, AVF, V1-V6 ABNORMAL ECG Electronically Signed On 05-07-2021 7:33:41 CDT by Refugio Cano D.O.
[2021-05-06 17:04] LABS: Alveolar/Arterial O2 Gradient 81.5 mmHg; Base Excess ABG -3.9 mEq/l (+/-2.0); Device NASAL CANNULA; Fractional Inspired Oxygen 28 %; HCO3 ABG 18.4 mEq/l (22.0-26.0); Modified Allen's Test Pass; Oxygen Content ABG 12.1 %vol (16.0-22.0); Oxygen Saturation ABG 97.6 % (95.0-100.0); Oxyhemoglobin 94.8 % THb (90.0-100.0); PCO2 ABG 24.5 mmHg (35.0-45.0); PO2 ABG 89.2 mmHg (80.0-100.0); PO2 FiO2 Ratio Arterial Blood 3.19 %; Site Drawn RIGHT RADIAL; pH ABG 7.494 (7.350-7.450)
--- NOTE | 2021-05-06 17:19 | PC.NURSE ---
1630- Patient found unresponsive after having emesis and hemodialysis. Patient pupils reactive ,gurgling, having decorticate posturing , not responding to painful stimuli to bue or ble. Stat head CT, abg, bmp, blood glucose ordered and obtained.
[2021-05-06 17:25] LABS: Anion Gap 19 mmol/L (8-16); Calcium 9.1 mg/dL (8.4-10.2); Carbon Dioxide 18 mmol/L (22-30); Chloride 103 mmol/L (98-107); Glucose 117 mg/dL (65-110); Potassium 4.1 mmol/L (3.4-5.0); Sodium 140 mmol/L (137-145)
[2021-05-06 17:41] LABS: Estimated CRCL calculation 5 ml/min; Estimated Glomerular Filt Rate 3
[2021-05-06] MEDS: levETIRAcetam 1000MG/NACL100ML 1,000 MG/100 ML BAG 400 MG IVPB (17:44)
[2021-05-06] MEDS: LORazepam INJ (*CRX) 2 MG/ML VIAL IV PUSH (17:52)
[2021-05-06 17:55] LABS: Blood Urea Nitrogen 124 mg/dL (9-20)
[2021-05-06] MEDS: MIDAZOLAM 100MG/NS 100ML(*CRX) 100 MG/100 ML BAG IV CONT (18:11)
[2021-05-06] MEDS: FENTANYL 2,500MCG/NS250ML(*CRX 2,500 MCG/250 ML BAG IV CONT (18:12)
--- NOTE | 2021-05-06 18:20 | WPDPROCEDUR ---
Procedures Intubation Intubation Date: 05/06/21 Intubation Time: 18:05 A pre-procedural Time-Out was completed immediately before starting the procedure and confirmed: Patient Identification, Site, Procedure, Patient Position and the Availability of Requisite Equipment: Yes Sedative: etomidate Mg given: 40 Paralytic: rocuronium Mg given: 40 Laryngoscope: fiber optic video scope (size 4) Assist device used: fiber optic device ET tube size: cuffed Tube secured depth (cm): 23 Tube secured location: lips Tube placement confirmation: visualized tube passing through cords and equal breath sounds bilaterally Patient tolerated procedure: well Intubation complications: none
[2021-05-06 19:19] LABS: Alveolar/Arterial O2 Gradient 192.4 mmHg; Base Excess ABG -12.8 mEq/l (+/-2.0); Fractional Inspired Oxygen 100 %; HCO3 ABG 15.5 mEq/l (22.0-26.0); Oxygen Content ABG 12.5 %vol (16.0-22.0); Oxygen Saturation ABG 99.8 % (95.0-100.0); Oxyhemoglobin 97.6 % THb (90.0-100.0); PCO2 ABG 46.7 mmHg (35.0-45.0); PO2 ABG 473.9 mmHg (80.0-100.0); PO2 FiO2 Ratio Arterial Blood 4.74 %; Total Hemoglobin 8.1 g/dL (12.0-18.0)
[2021-05-06 19:21] LABS: Arterial Blood Gas PEEP 8 cmH2O; Arterial Blood Gas Tidal Volume 450 ml; Arterial Blood Gas Vent Mode CMV; Arterial Blood Gas Ventilator rate 16 /MIN; Device VENTILATOR; Modified Allen's Test Unable to perform; Site Drawn RIGHT RADIAL; pH ABG 7.138 (7.350-7.450)
[2021-05-06 19:22] LABS: Hematocrit 22.8 % (42.0-52.0); Hemoglobin 7.6 g/dL (14.0-18.0); Immature Platelet Fraction Pct 4.9 % (0.9-11.2); Mean Corpuscular HGB Conc 33.3 g/dl (32-36); Mean Corpuscular Hemoglobin 33.6 pg (26-34); Mean Corpuscular Volume 100.9 fl (80-100); Mean Platelet Volume 11.4 fl (7.4-10.4); Platelet Count Result 68 k/mm3 (150-375); Red Blood Count 2.26 M/mm3 (4.6-6.20); Red Cell Distribution Width 12.9 % (11.5-14.5); White Blood Count 9.7 K/mm3 (4.5-10.0)
[2021-05-06 19:38] LABS: INR 1.8; Prothrombin Time 20.5 Seconds (11.1-14.7)
--- NOTE | 2021-05-06 19:53 | PC.NURSE ---
1730- Patient had witness seizure activity lasting 2 minutes. 1743-Patient had witnessed seizure activity lasting 3 minutes, Md at bedside , administered 6mg of ativan and 1g of keppra.
[2021-05-06] MEDS: SODIUM BICARBONATE 8.4% 50 MEQ/50 ML SYRINGE 100 MEQ IV PUSH (20:16)
[2021-05-06] MEDS: MINERAL OIL/WHITE PETROLATUM OINTMENT 1 APPLIC EACH EYE (20:16)
[2021-05-06 22:35] LABS: Fibrinogen 145 mg/dl (215-510)
[2021-05-07] VITALS (31 sets, daily range): BP systolic 113–159; BP diastolic 64–79; PULSE 80–99; RESP 16–23; TEMP 36.5–37.1; O2SAT 94–100
--- NOTE | 2021-05-07 | ECHO_ITS ---
Patient Info Name: Jj Cuello Age: 55 years : 1965 Gender: Male Ht: 69 in Wt: 194 lbs BSA: 2.09 m2 HR: 90 bpm BP: 115 / 67 mmHg Technical Quality: Fair Exam Date: 05/07/2021 8:14 AM Exam Location: [facility] Pulmonary Exam Room: ICU 2 Patient Status: Inpatient Admit Date: 05/06/2021 Staff Ordering Physician: Lennox Bowen MD Line Person: Aleja Gutierrez RDCS Attending Provider: Leona López DO Exam Type: CA echo doppler w bubble study Study Info Indications - murmur seizure Complete two-dimensional, color flow and Doppler transthoracic echocardiogram is performed with agitated saline. Contrast/Agitated Saline Contrast/Ag. Saline: Agitated Saline Amount: 20.00 ml Existing IV Access: Yes Summary 1. Left ventricular chamber dimension is normal. 2. Left ventricular systolic function is normal, estimated at 60-65%. 3. The left ventricular diastolic function is grade I diastolic dysfunction. 4. E/e' 10 is mildly elevated. 5. Left atrial chamber dimension is mildly enlarged. 6. There is severe aortic valve sclerosis. 7. There is mild aortic valve stenosis with a peak velocity of 292 cm/s, mean gradient of 21 mmHg, and aortic valve area of 1.8 cm2. 8. The mitral valve has severe calcified annulus. 9. There is trace tricuspid valve regurgitation. 10. No pulmonary hypertension, estimated pulmonary arterial systolic pressure is 36 mmHg. Left Ventricle E/e' 10 is mildly elevated. Left ventricular chamber dimension is normal. Left ventricular systolic function is normal, estimated at 60-65%. The left ventricular diastolic function is grade I diastolic dysfunction. Right Ventricle Right ventricular chamber dimension is normal. Right ventricular systolic function is normal. Left Atria Left atrial chamber dimension is mildly enlarged. Right Atria Right atrial chamber dimension is normal. Atrial Septum Agitated saline injection with and without valsalva maneuver opacified right side cardiac chambers without shunt to left cardiac chambers. Aortic Valve The aortic valve is trileaflet. There is severe aortic valve sclerosis. There is mild aortic valve stenosis with a peak velocity of 292 cm/s, mean gradient of 21 mmHg, and aortic valve area of 1.8 cm2. There is no aortic valve regurgitation. Pulmonic Valve There is no pulmonic regurgitation. Mitral Valve The mitral valve has severe calcified annulus. There is no mitral valve stenosis. There is no mitral valve regurgitation. Tricuspid Valve There is trace tricuspid valve regurgitation. No pulmonary hypertension, estimated pulmonary arterial systolic pressure is 36 mmHg. Pericardium/Pleural There is no pericardial effusion. Inferior Vena Cava Normal inferior vena cava with >50% collapse upon inspiration consistent with normal right atrial pressure, 5 mmHg. Aorta The aortic root size at the sinus of Valsalva is normal. Left Ventricular Outflow Tract Name Value Normal LVOT 2D LVOT Diameter 2.1 cm LVOT Doppler LVOT Peak Gradient 8 mmHg L
[2021-05-07] MEDS: PROPOFOL IV EMULSION 100 ML 10.24 MG IV CONT (00:27)
[2021-05-07 05:22] LABS: Base Excess ABG -2.4 mEq/l (+/-2.0); Carboxyhemoglobin 0.3 % THb (0-2.0); Fractional Inspired Oxygen 30 %; Methemoglobin ABG 0.6 %THb (0-1.5); Oxygen Content ABG 8.8 %vol (16.0-22.0); Oxygen Saturation ABG 96.6 % (95.0-100.0); PCO2 ABG 29.4 mmHg (35.0-45.0); PO2 ABG 79.4 mmHg (80.0-100.0); PO2 FiO2 Ratio Arterial Blood 2.65 %; Reduced Hemoglobin 6.1 %THb (0-5.0); pH ABG 7.471 (7.350-7.450)
[2021-05-07 05:23] LABS: Device VENTILATOR; Modified Allen's Test Unable to perform; Site Drawn RIGHT RADIAL; Total Hemoglobin 6.6 g/dL (12.0-18.0)
[2021-05-07 05:24] LABS: Arterial Blood Gas Vent Mode CMV; Arterial Blood Gas Ventilator rate 20 /MIN
[2021-05-07 05:25] LABS: Arterial Blood Gas PEEP 8 cmH2O; Arterial Blood Gas Tidal Volume 450 ml
[2021-05-07 05:26] LABS: Immature Platelet Fraction Pct 3.6 % (0.9-11.2); Mean Corpuscular HGB Conc 33.7 g/dl (32-36); Mean Corpuscular Hemoglobin 33.3 pg (26-34); Mean Corpuscular Volume 98.9 fl (80-100); Mean Platelet Volume 11.9 fl (7.4-10.4); Platelet Count Result 26 k/mm3 (150-375); Red Blood Count 1.86 M/mm3 (4.6-6.20); Red Cell Distribution Width 12.9 % (11.5-14.5); White Blood Count 3.5 K/mm3 (4.5-10.0)
[2021-05-07 05:28] LABS: Hematocrit 18.4 % (42.0-52.0)
[2021-05-07 05:29] LABS: Hemoglobin 6.2 g/dL (14.0-18.0)
[2021-05-07 05:58] LABS: Alanine Aminotransferase 18 U/L (4-50); Albumin Level 3.4 g/dL (3.5-5.1); Alkaline Phosphatase 140 U/L (38-126); Ammonia 168 umol/L (9-30); Anion Gap 16 mmol/L (8-16); Aspartate Amino Transferase 32 U/L (17-59); Bilirubin,Total 1.5 mg/dL (0.2-1.3); Blood Urea Nitrogen 129 mg/dL (9-20); Calcium 8.9 mg/dL (8.4-10.2); Carbon Dioxide 22 mmol/L (22-30); Chloride 102 mmol/L (98-107); Estimated CRCL calculation 4 ml/min; Estimated Glomerular Filt Rate 3; Glucose 116 mg/dL (65-110); Lipase 317 U/L (23-300); Magnesium 2.1 mg/dL (1.6-2.3); Phosphorus 8.2 mg/dL (2.5-4.5); Potassium 3.8 mmol/L (3.4-5.0); Sodium 140 mmol/L (137-145)
--- NOTE | 2021-05-07 07:30 | PM.IMPN ---
Progress Note: A&P Assessment and Plan (1) ESRD needing dialysis: Code(s): N18.6 - End stage renal disease; Z99.2 - Dependence on renal dialysis Status: Acute Assessment and Plan: ESRD on chronic hemodialysis, Sunday. Dialysis unit [facility]; primary bedspread folder is Dr. Norris. noncompliant and missed dialysis for 3 weeks not in volume overload but significantly uremic and hyperkalemic patient underwent a dialysis session today. The procedure was well tolerated. However towards the end he developed nausea and vomiting. This may be secondary to dialysis Shon does include Librium, however patient received a very short gentle initial dialysis session yesterday. It could be related to alcohol withdrawal.Benadryl was ordered. He later developed tonic or clonic symptoms and was taken to S radiology for stat head CT. Results inconclusive. Patient then had a tonic-clonic movement with the recovery of his mental status. Ativan given 6 mg IV stat. There were lot of bloody secretion, the patient apparently BD stone. Aggressive suctioning was done. Patient started on Keppra at a 1000 mg IV. Patient is not recovering his mental status, despite strong sternal rub. Patient had to be intubated tonight to protect his airways. (2) Hyperkalemia: Code(s): E87.5 - Hyperkalemia Status: Acute Assessment and Plan: patient received IV insulin and dextrose in the ER along with an amp of bicarb repeat potassium is better at 5.8 Kayexalate ordered Potassium is normal after dialysis today. (3) Hematoma: Code(s): T14.8XXA - Other injury of unspecified body region, initial encounter Status: Acute Assessment and Plan: Conservative management, warm compresses. (4) Fall: Code(s): W19.XXXA - Unspecified fall, initial encounter Status: Acute (5) Encephalopathy, hepatic: Code(s): K72.90 - Hepatic failure, unspecified without coma Status: Acute Assessment and Plan: start lactulose and rifaximin monitor ammonia (6) Coagulopathy: Code(s): D68.9 - Coagulation defect, unspecified Status: Acute Assessment and Plan: likely secondary to cirrhosis patient is getting FFP for anticipated invasive procedure in the form of placement of temporary hemodialysis catheter (7) Thrombocytopenia: Code(s): D69.6 - Thrombocytopenia, unspecified Status: Acute Assessment and Plan: secondary to cirrhosis and alcohol abuse patient is getting platelet transfusion for invasive procedure (8) Jugular vein thrombosis, right: Code(s): I82.890 - Acute embolism and thrombosis of other specified veins Status: Acute Assessment and Plan: By surgery plan to place a new tunneled dialysis catheter on the other side. (9) Nausea & vomiting: Code(s): R11.2 - Nausea with vomiting, unspecified Status: Acute Assessment and Plan: likely be secondary to uremia. Continue dialysis and sedation protocol. Follow up on Nephrology recommendations. mary ann Larkin (10) Pancreatitis: Code(s): K85.90 - Acute pancreatitis without necrosis or infection, unspecified Status: Acute Assessment and Plan: patient has elevated lipase but currently denies any abdominal pain and is not tender on abdominal examination CT also did not show any evidence of pancreatic inflammation monitor this time (11) Cirrhosis: Code(s): K74.60 - Unspecified cirrhosis of liver Status: Acute Assessment and Plan: resume nadolol Additional Plan DVT prophylaxis - SCDs Stress ulcer prophylaxis - Nutrition - Tube Feeds Code Status - Full Code Case discussed with Dr Cordova, and Dr. Norris with nephrology Total Critical Care Time - 35 minutes Subjective Date/time seen: 05/07/21 07:30 S: Patient was examined at the bedside. He is intubated, currently on mechanical ventilation.
[2021-05-07 08:32] LABS: Glucose Point of Care 106 mg/dl (65-105)
[2021-05-07] MEDS: MINERAL OIL/WHITE PETROLATUM OINTMENT 1 APPLIC EACH EYE ×2 (08:45→20:38)
[2021-05-07] MEDS: PANTOPRAZOLE SODIUM IV 40 MG VIAL IV PUSH (08:45)
[2021-05-07] MEDS: SODIUM CHLORIDE 0.9% IV 250 ML 30 ML IV CONT ×3 (08:50→16:02)
[2021-05-07] MEDS: LACTULOSE 20 GM/30 ML UDC PO ×2 (08:50→12:54)
[2021-05-07] MEDS: nadoloL 20 MG TABLET PO (08:50)
--- NOTE | 2021-05-07 09:01 | PM.PNGS ---
Progress Note: A&P Assessment and Plan (1) Jugular vein thrombosis, right: Code(s): I82.890 - Acute embolism and thrombosis of other specified veins Status: Acute Assessment and Plan: HD yesterday thru TDC s issue, cont HD per nephrology, will sign off at this point, call c issues (2) Hematoma: Code(s): T14.8XXA - Other injury of unspecified body region, initial encounter Status: Acute Assessment and Plan: stable, no evidence of expansion or infection Subjective Subjective Date/Time Seen: 05/07/21 09:01 events noted, pt became unresponsive s/p HD, pt c witnessed seizure activity, pt required intubation to protect airway Review of Systems Review of Systems: ROS unobtainable: Yes unobtainable due to medical condition and unobtainable due to mental status Exam Const: Other: intubated, sedated HENMT: Other: facial hematoma - unchanged Chest: Other: RIJ TDC - C/D/I Resp: Effort & Inspection: normal respiratory effort Auscultation: diminished lung sounds Cardio: Rate: regular rate Rhythm: regular rhythm GI: Inspection: normal to inspection GI Palp: Yes Soft to palpation and No Tenderness to palpation present (GI) Objective Data Vital Signs Vital Signs: Vital Signs - 24 hr 05/06/21 09:02 05/06/21 09:55 05/06/21 10:00 Temperature 36.3 C L Pulse Rate 87 94 90 Respiratory Rate 11 L 10 L Blood Pressure 153/73 H 156/81 H Pulse Oximetry 100 100 05/06/21 10:16 05/06/21 11:13 05/06/21 11:30 Temperature 36.1 C L 36.1 C L 35.8 C L Pulse Rate 87 85 89 Respiratory Rate 14 13 13 Blood Pressure 159/84 H 157/84 H 157/84 H Pulse Oximetry 100 100 100 05/06/21 12:00 05/06/21 12:30 05/06/21 13:34 Temperature 36.1 C L 36.1 C L 36.5 C Pulse Rate 91 90 89 Respiratory Rate 12 18 14 Blood Pressure 155/82 H 162/80 H 149/72 H Pulse Oximetry 100 100 05/06/21 13:40 05/06/21 13:45 05/06/21 14:00 Temperature Pulse Rate 91 93 92 Respiratory Rate 13 Blood Pressure 149/72 H 136/75 136/69 Pulse Oximetry 100 05/06/21 14:15 05/06/21 14:30 05/06/21 14:45 Temperature Pulse Rate 93 93 86 Respiratory Rate Blood Pressure 125/73 102/68 100/59 L Pulse Oximetry 05/06/21 15:00 05/06/21 15:15 05/06/21 15:30 Temperature Pulse Rate 89 91 92 Respiratory Rate Blood Pressure 130/68 122/65 107/64 Pulse Oximetry 05/06/21 15:45 05/06/21 16:00 05/06/21 16:11 Temperature 36.1 C L Pulse Rate 91 94 96 Respiratory Rate 19 Blood Pressure 96/63 L 108/59 L 117/63 Pulse Oximetry 100 05/06/21 16:19 05/06/21 17:05 05/06/21 18:00 Temperature 36.7 C Pulse Rate 96 70 Respiratory Rate 20 Blood Pressure 115/64 Pulse Oximetry 100 95 05/06/21 18:11 05/06/21 18:12 05/06/21 18:13 Temperature Pulse Rate 112 H 113 H 113 H Respiratory Rate 16 16 16 Blood Pressure Pulse Oximetry 05/06/21 18:14 05/06/21 18:34 05/06/21 20:00 Temperature 36.4 C Pulse Rate 113 H 112 H 107 H Respiratory Rate 16 16 Blood Pressure 123/60 Pulse Oximetry 100 100 05/06/21 20:08 05/06/21 22:00 05/06/21 23:00 Temperature Pulse Rate 102 H 95 96 Respiratory Rate 21 H Blood Pressure 127/73 Pulse Oximetry 100 94 100 05/06/21 23:45 05/07/21 00:00 05/07/21 00:27 Temperature 36.4 C Pulse Rate 91 96 91 Respiratory Rate 20 20 Blood Pressure 149/74 H Pulse Oximetry 100 99 05/07/21 02:00 05/07/21 03:52 05/07/21 04:00 Temperature 36.5 C Pulse Rate 89 86 Respiratory Rate 20 20 Blood Pressure 132/69 129/70 Pulse Oximetry 100 99 98 05/07/21 05:05 05/07/21 06:00 05/07/21 08:33 Temperature 37.1 C Pulse Rate 87 90 83 Respiratory Rate 20 19 Blood Pressure 115/67 118/64 Pulse Oximetry 98 100 100 05/07/21 08:35 05/07/21 08:50 Temperature 37.1 C Pulse Rate 87 86 Respiratory Rate 23 H Blood Pressure 118/64 Pulse Oximetry 100 Intake/Output Intake/Output: Intake & Output 05/04/21 05/05/21 05/06/21
--- NOTE | 2021-05-07 09:19 | WPDINTPN ---
Progress Note: A&P Assessment and Plan (1) Acute respiratory failure: Code(s): J96.00 - Acute respiratory failure, unspecified whether with hypoxia or hypercapnia Status: Acute Assessment and Plan: Acute Respiratory failure secondary to status epilepticus. Patient intubated for protection of airway Continue full mechanical ventilation support to prevent hypoxemia/hypercarbia and end organ damage. ABG reviewed and will decrease rate to 16 Chest x-ray reviewed will advance ET tube by 3 cm. 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 Etiology of that is not fully clear at this time but I suspect Dialysis disequilibrium syndrome Head CT was negative Currently on propofol with p.r.n. Ativan ordered Check EEG, consult Neurology Patient was loaded with Keppra which will be continued Sedation holiday (3) Tongue laceration: Code(s): S01.512A - Laceration without foreign body of oral cavity, initial encounter Status: Acute Assessment and Plan: Patient bit his tongue during seizures. Unable to examine at this time. He is getting PRBC and platelet transfusion (4) Anemia: Code(s): D64.9 - Anemia, unspecified Status: Acute Assessment and Plan: He has multiple reasons for anemia and his hemoglobin has dropped overnight this could be exacerbated by tongue bite Patient will be transfused 2 units of PRBC He will also be transfused 1 unit of platelets I will also give him some vitamin K He did get some FFP yesterday Monitor hemoglobin (5) ESRD needing dialysis: Code(s): N18.6 - End stage renal disease; Z99.2 - Dependence on renal dialysis Status: Acute Assessment and Plan: noncompliant and missed dialysis for 3 weeks. He presented not in volume overload but significantly uremic and hyperkalemic hyperkalemia was temporally treated with medications in the ER and improved Patient was then dialyzed yesterday Nephrology is following and electrolytes acceptable. Next dialysis session per Nephrology (6) Hyperkalemia: Code(s): E87.5 - Hyperkalemia Status: Acute Assessment and Plan: Resolved after initial treatment with medications and later dialysis (7) Hematoma: Code(s): T14.8XXA - Other injury of unspecified body region, initial encounter Status: Acute Assessment and Plan: discussed with Dr. Noriega General surgery. It does not need to be drained and should resorb conservatively. It does not appear infected at patient has normal white cell count and denies any pain at the site obviously avoid any anticoagulation at this time (8) Fall: Code(s): W19.XXXA - Unspecified fall, initial encounter Status: Acute Assessment and Plan: Not sure if patient ever lost consciousness he is a poor historian unable to give any details and this happened almost 2 weeks ago as per him. Imaging reviewed for injuries and shows last show maxillary soft tissue hematoma CT Head IMPRESSION: 1. No acute intracranial abnormality. 2. Large left maxillary soft tissue hematoma. CT facial and cervical spine IMPRESSION: 1. Large left maxillary soft tissue hematoma without facial bone fracture. 2. Mild cervical spondylosis without acute findings. CT T/A/P IMPRESSION: 1. Likely subacute mildly comminuted nondisplaced nonunited sternal fracture. 2. Nonocclusive thrombus in the right internal jugular vein propagating proximally from the site of insertion of a right internal jugular central venous catheter. 3. Cirrhosis with moderate amount of ascites and marked splenomegaly and splenorenal collaterals consistent with p
[2021-05-07] MEDS: levETIRAcetam 500MG/NACL 100ML 500 MG/100 ML BAG 400 MG IVPB ×2 (09:47→20:38)
[2021-05-07] MEDS: PHYTONADIONE 5 MG TABLET 10 MG PO (10:43)
[2021-05-07 13:40] LABS: Glucose Point of Care 123 mg/dl (65-105)
--- NOTE | 2021-05-07 14:07 | PM.PNNEP ---
Progress Note: A&P Assessment and Plan (1) ESRD needing dialysis: Code(s): N18.6 - End stage renal disease; Z99.2 - Dependence on renal dialysis Status: Acute Assessment and Plan: The patient has end-stage renal disease. BUN and creatinine very high. dialyzed yesterday only 2.5h and 250 blood floow, a relatively small dialysis. pt had a seiure afterwards. consider dialysis disequilbrium but a short dialysis was employed and he is a dialysis patient making this less likely. However, it is possible so will hold off on HD today and do nly a 2h treatment tomorrow and then do it sunday. electrolytes and volume status are okay another possiblity is withdrawal seizure as he has an alcohol history. his BAL was negative in the ER so could be at the 72 hour duane typical of withdrawal. he says he hasn't been drinking but his history giving is somewhat erratic this admission. Discussed at length with Dr Bowen. (2) Alcoholic liver failure: Code(s): K70.40 - Alcoholic hepatic failure without coma Status: Acute Assessment and Plan: The patient has not been taking lactulose. His ammonia levels very high. b ack on lactulose and ammonia levels are improved. (3) Encephalopathy, hepatic: Code(s): K72.90 - Hepatic failure, unspecified without coma Status: Acute Assessment and Plan: Ammonia level is better. (4) Jugular vein thrombosis, right: Code(s): I82.890 - Acute embolism and thrombosis of other specified veins Status: Acute Assessment and Plan: no anticoagulation indicated since he has bleeding/bruises. to get new cath sunday (5) Coagulopathy: Code(s): D68.9 - Coagulation defect, unspecified Status: Acute Assessment and Plan: Due to liver disease Getting FFP, platelets as needed. (6) Thrombocytopenia: Code(s): D69.6 - Thrombocytopenia, unspecified Status: Acute Assessment and Plan: Due to increased reticular endothelial uptake. Getting platelets (7) Erythropoietin deficiency anemia: Code(s): D63.1 - Anemia in chronic kidney disease Status: Acute Assessment and Plan: Will give Epogen with dialysis (8) Renal osteodystrophy: Code(s): N25.0 - Renal osteodystrophy Status: Acute Assessment and Plan: Will get a phosphorus in the morning Subjective Date/time seen: 05/07/21 14:07 Interval history: patient had a seizure yesterday a few minutes after dialysis. terminated with some valium and the patient hasn't had a seizure since then. he bit his tongue and was somnolent after the seizure so pt was intubated to protect airway. now on vent and sedated. Exam Narrative: WDWN in NAD skin no rash. multiple echymoses head ncat lungs coarse bilaterally. cor reg no rub or gallop abd BS+ nontender and soft ext no edema. Objective Data Vital Signs Vital Signs: Vital Signs - 24 hr 05/06/21 14:15 05/06/21 14:30 05/06/21 14:45 Temperature Pulse Rate 93 93 86 Respiratory Rate Blood Pressure 125/73 102/68 100/59 L Pulse Oximetry 05/06/21 15:00 05/06/21 15:15 05/06/21 15:30 Temperature Pulse Rate 89 91 92 Respiratory Rate Blood Pressure 130/68 122/65 107/64 Pulse Oximetry 05/06/21 15:45 05/06/21 16:00 05/06/21 16:11 Temperature 36.1 C L Pulse Rate 91 94 96 Respiratory Rate 19 Blood Pressure 96/63 L 108/59 L 117/63 Pulse Oximetry 100 05/06/21 16:19 05/06/21 17:05 05/06/21 18:00 Temperature 36.7 C Pulse Rate 96 70 Respiratory Rate 20 Blood Pressure 115/64 Pulse Oximetry 100 95 05/06/21 18:11 05/06/21 18:12 05/06/21 18:13 Temperature Pulse Rate 112 H 113 H 113 H Respiratory Rate 16 16 16 Blood Pressure Pulse Oximetry 05/06/21 18:14 05/06/21 18:34 05/06/21 20:00 Temperature 36.4 C Pulse Rate 113 H 112 H 107 H Respiratory Rate 16 16 Blood Pressure 123/60 Pulse Oximetry 100 1
[2021-05-07 14:11] LABS: Hematocrit 22.4 % (42.0-52.0); Hemoglobin 7.5 g/dL (14.0-18.0); Immature Platelet Fraction Pct 3.1 % (0.9-11.2); Mean Corpuscular HGB Conc 33.5 g/dl (32-36); Mean Corpuscular Hemoglobin 32.2 pg (26-34); Mean Corpuscular Volume 96.1 fl (80-100); Mean Platelet Volume 10.3 fl (7.4-10.4); Platelet Count Result 30 k/mm3 (150-375); Red Blood Count 2.33 M/mm3 (4.6-6.20); Red Cell Distribution Width 14.9 % (11.5-14.5); White Blood Count 4.4 K/mm3 (4.5-10.0)
--- NOTE | 2021-05-07 14:31 | WPDNEURCNPN ---
Assessment and Plan Additional Plan 1. Continue the anticonvulsants considering his renal status the seizures recurred we can add the depakon and other care accordingly as per the assistant press operator offset Consult date: 05/07/21 HPI: Jj Cuello is a 55 year old male admitted to the hospital through the emergency room with history of fall 2 weeks ago sustaining head trauma at that time patient has not had dialysis for 3 weeks because his excessive tiredness and inability to drive his car to the dialysis in addition he has ongoing history of 1. Alcoholic cirrhosis 2. 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 3. Hypertension 4. Renal osteodystrophy 5. Anemia 6. Anxiety with depression and noncompliance, neuro consult obtained for the for status epilepticus and patient is receiving [facility] Review of Systems Review of Systems: All systems reviewed & are unremarkable except as noted in HPI and below PMFSH Past Medical History Medical History Alcoholic liver failure Cirrhosis Coagulopathy Encephalopathy, hepatic Erythropoietin deficiency anemia ESRD needing dialysis Renal osteodystrophy Thrombocytopenia Social History Social History Smoking status: Never smoker Alcohol intake: current Drinks per week: 3 Substance use: never Spiritual care concerns: No Meds Home Medications and Allergies Home Medications Medication Instructions Recorded Confirmed Type amlodipine 05/06/21 History amoxicillin 05/06/21 History avatrombopag [Doptelet (15 tab mg PO 05/06/21 History pack)] ciprofloxacin HCl 05/06/21 History halobetasol propionate applic TOPICAL 05/06/21 History imiquimod TOPICAL 05/06/21 History lisinopril 05/06/21 History nadolol 05/06/21 History pantoprazole PO 05/06/21 History peg 3350-electrolytes 05/06/21 History sevelamer carbonate 05/06/21 History sildenafil 05/06/21 History trazodone 05/06/21 History Allergies Allergy/AdvReac Type Severity Reaction Status Date / Time No Known Allergies Allergy Unknown Verified 01/22/19 15:29 Vital Signs Vital Signs - 24 hr 05/06/21 14:45 05/06/21 15:00 05/06/21 15:15 Temperature Pulse Rate 86 89 91 Respiratory Rate Blood Pressure 100/59 L 130/68 122/65 Pulse Oximetry 05/06/21 15:30 05/06/21 15:45 05/06/21 16:00 Temperature 36.1 C L Pulse Rate 92 91 94 Respiratory Rate 19 Blood Pressure 107/64 96/63 L 108/59 L Pulse Oximetry 100 05/06/21 16:11 05/06/21 16:19 05/06/21 17:05 Temperature 36.7 C Pulse Rate 96 96 Respiratory Rate 20 Blood Pressure 117/63 115/64 Pulse Oximetry 100 95 05/06/21 18:00 05/06/21 18:11 05/06/21 18:12 Temperature Pulse Rate 70 112 H 113 H Respiratory Rate 16 16 Blood Pressure Pulse Oximetry 05/06/21 18:13 05/06/21 18:14 05/06/21 18:34 Temperature Pulse Rate 113 H 113 H 112 H Respiratory Rate 16 16 Blood Pressure Pulse Oximetry 100 05/06/21 20:00 05/06/21 20:08 05/06/21 22:00 Temperature 36.4 C Pulse Rate 107 H 102 H 95 Respiratory Rate 16 21 H Blood Pressure 123/60 127/73 Pulse Oximetry 100 100 94 05/06/21 23:00 05/06/21 23:45 05/07/21 00:00 Temperature 36.4 C Pulse Rate 96 91 96 Respiratory Rate 20 Blood Pressure 149/74 H Pulse Oximetry 100 100 99 05/07/21 00:27 05/07/21 02:00 05/07/21 03:52 Temperature Pulse Rate 91 89 Respiratory Rate 20 20 Blood Pressure 132/69 Pulse Oximetry 100 99 05/07/21 04:00 05/07/21 05:05 05/07/21 06:00 Temperature 36.5 C Pulse Rate 86 87 90 Respiratory Rate 20 20 Blood Pressure 129/70 115/67 Pulse Oximetry 98 98 100 05/07/21 08:00 05/07/21 08:05 05/07/21 08:15 Temperature 36.9 C 37.1 C Pulse Rate 85 89 84 Respiratory Rate 16 16 Blood Pressure 113/68 113/68 Pulse Oximetry 100 100 100 05/07/21 08:33 05/07/21 08:35 05/07/21 08:50 Temperature 37.1 C 37.1 C P
[2021-05-07] MEDS: THIAMINE HCL 100 MG TABLET FEED TUBE (16:05)
[2021-05-07] MEDS: FOLIC ACID 1 MG TABLET FEED TUBE (16:05)
[2021-05-07] MEDS: LACTULOSE 20 GM/30 ML UDC FEED TUBE (18:30)
[2021-05-07 20:20] LABS: Hematocrit 21.9 % (42.0-52.0); Hemoglobin 7.3 g/dL (14.0-18.0); Immature Platelet Fraction Pct 3.8 % (0.9-11.2); Mean Corpuscular HGB Conc 33.3 g/dl (32-36); Mean Corpuscular Hemoglobin 32.2 pg (26-34); Mean Corpuscular Volume 96.5 fl (80-100); Mean Platelet Volume 11.3 fl (7.4-10.4); Red Blood Count 2.27 M/mm3 (4.6-6.20); Red Cell Distribution Width 15.4 % (11.5-14.5); White Blood Count 5.7 K/mm3 (4.5-10.0)
[2021-05-07 20:35] LABS: Platelet Count Result 28 k/mm3 (150-375)
[2021-05-08] VITALS (30 sets, daily range): BP systolic 139–170; BP diastolic 70–94; PULSE 83–106; RESP 16–24; TEMP 36.7–37.8; O2SAT 92–100
[2021-05-08 00:17] LABS: Glucose Point of Care 174 mg/dl (65-105)
--- NOTE | 2021-05-08 01:00 | PC.NURSE ---
Daylight Savings Time For Daylight Savings Time Ending in the Fall - Clocks are moved back. For Daylight Savings Time Beginning in the Spring - Clocks are moved ahead. For [facility], the time of change occurs at 0200 hrs. Time is taken from the water server. This entry on the patient's chart recognizes the change in time reflected during documentation. Example: 2 entries for vital signs may be charted for 0200 hrs.
[2021-05-08 04:50] LABS: Alveolar/Arterial O2 Gradient 83.3 mmHg; Base Excess ABG -0.9 mEq/l (+/-2.0); Carboxyhemoglobin 0.2 % THb (0-2.0); Fractional Inspired Oxygen 30 %; HCO3 ABG 21.9 mEq/l (22.0-26.0); Methemoglobin ABG 0.5 %THb (0-1.5); Oxygen Content ABG 11.1 %vol (16.0-22.0); Oxyhemoglobin 95.6 % THb (90.0-100.0); PCO2 ABG 28.6 mmHg (35.0-45.0); PO2 FiO2 Ratio Arterial Blood 3.23 %; Reduced Hemoglobin 3.7 %THb (0-5.0); Total Hemoglobin 8.1 g/dL (12.0-18.0)
[2021-05-08 04:52] LABS: Device VENTILATOR; Modified Allen's Test Unable to perform; Site Drawn RIGHT RADIAL; pH ABG 7.501 (7.350-7.450)
[2021-05-08 04:53] LABS: Arterial Blood Gas PEEP 8 cmH2O; Arterial Blood Gas Tidal Volume 450 ml; Arterial Blood Gas Vent Mode CMV; Arterial Blood Gas Ventilator rate 20 /MIN
[2021-05-08 05:10] LABS: Hematocrit 21.7 % (42.0-52.0); Hemoglobin 7.3 g/dL (14.0-18.0); Immature Platelet Fraction Pct 3.7 % (0.9-11.2); Mean Corpuscular HGB Conc 33.6 g/dl (32-36); Mean Corpuscular Volume 95.2 fl (80-100); Mean Platelet Volume 12.2 fl (7.4-10.4); Platelet Count Result 27 k/mm3 (150-375); Red Blood Count 2.28 M/mm3 (4.6-6.20); Red Cell Distribution Width 15.4 % (11.5-14.5); White Blood Count 7.5 K/mm3 (4.5-10.0)
[2021-05-08 05:20] LABS: Ammonia 80 umol/L (9-30)
[2021-05-08 05:27] LABS: INR 1.7; Prothrombin Time 19.9 Seconds (11.1-14.7)
[2021-05-08 05:31] LABS: Alanine Aminotransferase 20 U/L (4-50); Albumin Level 3.3 g/dL (3.5-5.1); Alkaline Phosphatase 268 U/L (38-126); Anion Gap 15 mmol/L (8-16); Aspartate Amino Transferase 35 U/L (17-59); Bilirubin,Total 1.5 mg/dL (0.2-1.3); Calcium 8.7 mg/dL (8.4-10.2); Carbon Dioxide 24 mmol/L (22-30); Chloride 101 mmol/L (98-107); Glucose 174 mg/dL (65-110); Magnesium 1.8 mg/dL (1.6-2.3); Phosphorus 5.8 mg/dL (2.5-4.5); Potassium 3.6 mmol/L (3.4-5.0); Sodium 140 mmol/L (137-145)
[2021-05-08 09:18] LABS: Glucose Point of Care 158 mg/dl (65-105)
[2021-05-08] MEDS: LACTULOSE 20 GM/30 ML UDC FEED TUBE ×3 (09:25→16:33)
[2021-05-08] MEDS: nadoloL 20 MG TABLET PO (09:26)
[2021-05-08] MEDS: MINERAL OIL/WHITE PETROLATUM OINTMENT 1 APPLIC EACH EYE ×2 (09:26→21:08)
[2021-05-08] MEDS: PANTOPRAZOLE SODIUM IV 40 MG VIAL IV PUSH (09:26)
[2021-05-08] MEDS: THIAMINE HCL 100 MG TABLET FEED TUBE (09:26)
[2021-05-08] MEDS: FOLIC ACID 1 MG TABLET FEED TUBE (09:26)
[2021-05-08] MEDS: levETIRAcetam 500MG/NACL 100ML 500 MG/100 ML BAG 400 MG IVPB ×2 (09:28→21:07)
[2021-05-08 09:42] LABS: Estimated CRCL calculation 4 ml/min; Estimated Glomerular Filt Rate 3
[2021-05-08 10:22] LABS: Blood Urea Nitrogen 134 mg/dL (9-20)
--- NOTE | 2021-05-08 10:27 | WPDINTPN ---
Progress Note: A&P Assessment and Plan (1) Acute respiratory failure: Code(s): J96.00 - Acute respiratory failure, unspecified whether with hypoxia or hypercapnia Status: Acute Assessment and Plan: Acute Respiratory failure secondary to status epilepticus. Patient intubated for protection of airway Continue full mechanical ventilation support to prevent hypoxemia/hypercarbia and end organ damage. ABG reviewed and will decrease rate to 16 and tidal volume to 400 Chest x-ray reviewed will advance ET tube by 2 cm. Low tidal volume ventilation strategy to prevent volutrauma Vent weaning will depend on his neuro status I do not see any evidence of aspiration (2) Convulsive status epilepticus: Code(s): G40.901 - Epilepsy, unspecified, not intractable, with status epilepticus Status: Acute Assessment and Plan: Patient had multiple seizures post dialysis yesterday. Etiology of that is not fully clear at this time but I suspect Dialysis disequilibrium syndrome Head CT was negative He was on propofol with p.r.n. Ativan ordered but currently off He has not had any clinically obvious seizures since intubated EEG is ordered and pending Patient was seen by Neurology Patient was loaded with Keppra which will be continued Sedation holiday (3) Encephalopathy acute: Code(s): G93.40 - Encephalopathy, unspecified Status: Acute Assessment and Plan: Patient has been encephalopathic since he had his seizures. This could be postictal. His ammonia is improving Head CT done post status epilepticus and intubation was un remark EEG is ordered and pending He is still uremic and he is scheduled for dialysis today Continue to hold sedation Will see how he responds after dialysis and what EEG shows tomorrow before making further decisions on workup He is afebrile has normal white cell count (4) Tongue laceration: Code(s): S01.512A - Laceration without foreign body of oral cavity, initial encounter Status: Acute Assessment and Plan: Patient bit his tongue during seizures. Unable to examine at this time. He is getting PRBC and platelet transfusion (5) Anemia: Code(s): D64.9 - Anemia, unspecified Status: Acute Assessment and Plan: He has multiple reasons for anemia and his hemoglobin has dropped overnight this could be exacerbated by tongue bite Patient was transfused 2 units of PRBC and 2 units of platelets 05/07 I will also give him some vitamin K He did get some FFP 05/06 Monitor hemoglobin (6) ESRD needing dialysis: Code(s): N18.6 - End stage renal disease; Z99.2 - Dependence on renal dialysis Status: Acute Assessment and Plan: noncompliant and missed dialysis for 3 weeks. He presented not in volume overload but significantly uremic and hyperkalemic hyperkalemia was temporally treated with medications in the ER and improved Patient was then dialyzed Nephrology is following and electrolytes acceptable. Plan to dialyze again today per Nephrology (7) Hyperkalemia: Code(s): E87.5 - Hyperkalemia Status: Acute Assessment and Plan: Resolved after initial treatment with medications and later dialysis (8) Hematoma: Code(s): T14.8XXA - Other injury of unspecified body region, initial encounter Status: Acute Assessment and Plan: discussed with Dr. Noriega General surgery. It does not need to be drained and should resorb conservatively. It does not appear infected at patient has normal white cell count and denies any pain at the site obviously avoid any anticoagulation at this time (9) Fall: Code(s): W19.XXXA - Unspecified fall, initial encounter Status: Acute Assessment and Plan: Not sure if patient ever lost consciousness he is a poor historian unable to give any details and this happened almost 2 weeks ago as per him. Imaging reviewed for injuries and shows last show maxillary
--- NOTE | 2021-05-08 11:35 | PM.PNNEP ---
Progress Note: A&P Assessment and Plan (1) ESRD needing dialysis: Code(s): N18.6 - End stage renal disease; Z99.2 - Dependence on renal dialysis Status: Acute Assessment and Plan: The patient has end-stage renal disease. BUN and creatinine very high. today BUN is about 130. on dialysis. We are giving only a 2hour treatment. We will increase this on Sunday. To get a new catheter for dialysis tomorrow (2) Alcoholic liver failure: Code(s): K70.40 - Alcoholic hepatic failure without coma Status: Acute Assessment and Plan: The patient has not been taking lactulose. His ammonia levels very high. b ack on lactulose and ammonia levels are improved. (3) Encephalopathy, hepatic: Code(s): K72.90 - Hepatic failure, unspecified without coma Status: Acute Assessment and Plan: Ammonia level is better. (4) Jugular vein thrombosis, right: Code(s): I82.890 - Acute embolism and thrombosis of other specified veins Status: Acute Assessment and Plan: no anticoagulation indicated since he has bleeding/bruises. to get new cath sunday (5) Coagulopathy: Code(s): D68.9 - Coagulation defect, unspecified Status: Acute Assessment and Plan: Due to liver disease Getting FFP as needed. (6) Thrombocytopenia: Code(s): D69.6 - Thrombocytopenia, unspecified Status: Acute Assessment and Plan: Due to increased reticular endothelial uptake. Getting platelets as needed (7) Erythropoietin deficiency anemia: Code(s): D63.1 - Anemia in chronic kidney disease Status: Acute Assessment and Plan: Will give Epogen with dialysis (8) Renal osteodystrophy: Code(s): N25.0 - Renal osteodystrophy Status: Acute Assessment and Plan: phosphorus level 5.8. Not eating. No need for binders. Subjective Date/time seen: 05/08/21 11:35 Interval history: patient Has had no more seizures since day before yesterday but does have some chewing movements. He is on dialysis and tolerating it well. Blood pressure is in the 140s and 150s. We are going for 2L today. Seen at 11:25 a.m. Exam Narrative: WDWN in NAD skin no rash. multiple echymoses head ncat lungs coarse bilaterally. cor reg no rub abd BS+ nontender and soft ext no edema Or cyanosis. Objective Data Vital Signs Vital Signs: Vital Signs - 24 hr 05/07/21 14:00 05/07/21 14:08 05/07/21 15:29 Temperature 36.7 C Pulse Rate 91 88 93 Respiratory Rate 20 Blood Pressure 146/79 H 143/68 H Pulse Oximetry 99 94 98 05/07/21 15:44 05/07/21 16:00 05/07/21 17:05 Temperature 36.6 C 36.7 C Pulse Rate 97 97 99 Respiratory Rate 19 23 H Blood Pressure 148/76 H 159/72 H Pulse Oximetry 98 100 99 05/07/21 18:00 05/07/21 20:00 05/07/21 22:00 Temperature 37.1 C 36.7 C Pulse Rate 96 95 96 Respiratory Rate 20 20 20 Blood Pressure 143/69 H 148/73 H 131/70 Pulse Oximetry 100 100 100 05/07/21 23:00 05/08/21 00:00 05/08/21 02:00 Temperature 37.7 C H Pulse Rate 98 98 95 Respiratory Rate 24 H 20 Blood Pressure 141/73 H 150/74 H Pulse Oximetry 100 99 98 05/08/21 04:00 05/08/21 04:54 05/08/21 06:00 Temperature 37.1 C Pulse Rate 95 95 94 Respiratory Rate 20 20 Blood Pressure 139/70 145/72 H Pulse Oximetry 99 99 98 05/08/21 08:04 05/08/21 09:26 05/08/21 10:25 Temperature Pulse Rate 105 H 101 H 98 Respiratory Rate Blood Pressure Pulse Oximetry 100 100 05/08/21 10:35 05/08/21 11:00 05/08/21 11:15 Temperature 37.1 C Pulse Rate 93 93 94 Respiratory Rate 20 Blood Pressure 162/74 H 158/78 H 157/76 H Pulse Oximetry 100 05/08/21 11:30 Temperature Pulse Rate 98 Respiratory Rate Blood Pressure 170/85 H Pulse Oximetry Intake/Output Intake/Output: Intake & Output 05/05/21 05/06/21 05/07/21 05/08/21 23:59 23:59 23:59 22:59 Intake Total 1762 1765 849 Output T
[2021-05-08 14:39] LABS: Glucose Point of Care 169 mg/dl (65-105)
[2021-05-08 16:07] LABS: Hematocrit 24.8 % (42.0-52.0); Hemoglobin 8.2 g/dL (14.0-18.0); Immature Platelet Fraction Pct 5.1 % (0.9-11.2); Mean Corpuscular HGB Conc 33.1 g/dl (32-36); Mean Corpuscular Hemoglobin 32.4 pg (26-34); Mean Platelet Volume 12.5 fl (7.4-10.4); Platelet Count Result 30 k/mm3 (150-375); Red Blood Count 2.53 M/mm3 (4.6-6.20); Red Cell Distribution Width 15.4 % (11.5-14.5); White Blood Count 7.4 K/mm3 (4.5-10.0)
[2021-05-08 16:35] LABS: Glucose Point of Care 172 mg/dl (65-105)
[2021-05-09] VITALS (23 sets, daily range): BP systolic 147–174; BP diastolic 73–85; PULSE 84–90; RESP 14–20; TEMP 36.6–37.7; O2SAT 95–100; BMI 28.4
[2021-05-09 00:18] LABS: Glucose Point of Care 146 mg/dl (65-105)
[2021-05-09 05:10] LABS: Hemoglobin 8.3 g/dL (14.0-18.0); Immature Platelet Fraction Pct 4.6 % (0.9-11.2); Mean Corpuscular HGB Conc 33.2 g/dl (32-36); Mean Corpuscular Hemoglobin 32.4 pg (26-34); Mean Corpuscular Volume 97.7 fl (80-100); Mean Platelet Volume 12.3 fl (7.4-10.4); Platelet Count Result 31 k/mm3 (150-375); Red Blood Count 2.56 M/mm3 (4.6-6.20); Red Cell Distribution Width 15.4 % (11.5-14.5); White Blood Count 8.2 K/mm3 (4.5-10.0)
[2021-05-09 05:14] LABS: INR 1.8; Prothrombin Time 20.3 Seconds (11.1-14.7)
[2021-05-09 05:17] LABS: Ammonia 16 umol/L (9-30)
[2021-05-09 05:21] LABS: Alanine Aminotransferase 20 U/L (4-50); Albumin Level 3.5 g/dL (3.5-5.1); Alkaline Phosphatase 312 U/L (38-126); Anion Gap 15 mmol/L (8-16); Aspartate Amino Transferase 31 U/L (17-59); Blood Urea Nitrogen 107 mg/dL (9-20); Calcium 9.2 mg/dL (8.4-10.2); Carbon Dioxide 25 mmol/L (22-30); Chloride 99 mmol/L (98-107); Estimated CRCL calculation 6 ml/min; Estimated Glomerular Filt Rate 4; Glucose 167 mg/dL (65-110); Magnesium 1.8 mg/dL (1.6-2.3); Phosphorus 5.2 mg/dL (2.5-4.5); Potassium 3.6 mmol/L (3.4-5.0); Sodium 139 mmol/L (137-145)
[2021-05-09 05:48] LABS: Alveolar/Arterial O2 Gradient 66.8 mmHg; Base Excess ABG 0.7 mEq/l (+/-2.0); Carboxyhemoglobin 0.2 % THb (0-2.0); Device VENTILATOR; Fractional Inspired Oxygen 30 %; HCO3 ABG 23.6 mEq/l (22.0-26.0); Methemoglobin ABG 0.4 %THb (0-1.5); Modified Allen's Test Pass; Oxygen Content ABG 12.7 %vol (16.0-22.0); Oxygen Saturation ABG 98.4 % (95.0-100.0); Oxyhemoglobin 96.6 % THb (90.0-100.0); PCO2 ABG 31.1 mmHg (35.0-45.0); PO2 ABG 110.6 mmHg (80.0-100.0); PO2 FiO2 Ratio Arterial Blood 3.69 %; Reduced Hemoglobin 2.8 %THb (0-5.0); Site Drawn RIGHT RADIAL; Total Hemoglobin 9.2 g/dL (12.0-18.0); pH ABG 7.498 (7.350-7.450)
[2021-05-09 05:49] LABS: Arterial Blood Gas PEEP 8 cmH2O; Arterial Blood Gas Tidal Volume 400 ml; Arterial Blood Gas Vent Mode CMV; Arterial Blood Gas Ventilator rate 16 /MIN
[2021-05-09 06:26] LABS: Glucose Point of Care 145 mg/dl (65-105)
[2021-05-09] MEDS: LABETALOL HCL INJ 100 MG/20 ML VIAL 20 MG IV PUSH (06:50)
[2021-05-09] MEDS: MINERAL OIL/WHITE PETROLATUM OINTMENT 1 APPLIC EACH EYE (08:33)
[2021-05-09] MEDS: levETIRAcetam 500MG/NACL 100ML 500 MG/100 ML BAG 400 MG IVPB ×2 (08:33→22:00)
[2021-05-09] MEDS: FOLIC ACID 1 MG TABLET FEED TUBE (08:33)
[2021-05-09] MEDS: LACTULOSE 20 GM/30 ML UDC FEED TUBE ×2 (08:33→11:49)
[2021-05-09] MEDS: PANTOPRAZOLE SODIUM IV 40 MG VIAL IV PUSH (08:34)
[2021-05-09] MEDS: nadoloL 20 MG TABLET PO (08:34)
[2021-05-09] MEDS: THIAMINE HCL 100 MG TABLET FEED TUBE (08:34)
--- NOTE | 2021-05-09 09:57 | WPDINTPN ---
Progress Note: A&P Assessment and Plan (1) Acute respiratory failure: Code(s): J96.00 - Acute respiratory failure, unspecified whether with hypoxia or hypercapnia Status: Acute Assessment and Plan: Acute Respiratory failure secondary to status epilepticus. Patient intubated for protection of airway secondary to seizure activity On CMV mode of ventilation, 30% FiO2, peep of 8 ABGs and chest x-ray reviewed, -patient will be placed on SBT and evaluate for extubation (2) Convulsive status epilepticus: Code(s): G40.901 - Epilepsy, unspecified, not intractable, with status epilepticus Status: Acute Assessment and Plan: Patient had multiple seizures post dialysis on 05/07/2021. Etiology of that is not fully clear but suspect Dialysis disequilibrium syndrome Head CT was negative Currently off all sedation He has not had any clinical seizures overnight EEG was done this morning and pending reports Neurology is following the patient Continue Keppra Patient is awake, alert, follows simple commands in all extremities (3) Encephalopathy acute: Code(s): G93.40 - Encephalopathy, unspecified Status: Acute Assessment and Plan: IMPROVING Patient has been encephalopathic since he had his seizures. This could be postictal. -ammonia levels have normalized Head CT done post status epilepticus and intubation was unremarkable EEG done, pending report He is still uremic, will discuss with Nephrology regarding dialysis Continue to hold sedation - Patient is more awake this morning He is afebrile has normal white cell count (4) Tongue laceration: Code(s): S01.512A - Laceration without foreign body of oral cavity, initial encounter Status: Acute Assessment and Plan: Patient bit his tongue during seizures. Unable to examine at this time. He is getting PRBC and platelet transfusion -once extubated will have ENT evaluate the tongue (5) Anemia: Code(s): D64.9 - Anemia, unspecified Status: Acute Assessment and Plan: He has multiple reasons for anemia and his hemoglobin has dropped overnight this could be exacerbated by tongue bite Patient was transfused 2 units of PRBC and 2 units of platelets 05/07 I will also give him some vitamin K He did get some FFP 05/06 Hemoglobin has been stable and improving, will continue to monitor (6) ESRD needing dialysis: Code(s): N18.6 - End stage renal disease; Z99.2 - Dependence on renal dialysis Status: Acute Assessment and Plan: noncompliant and missed dialysis for 3 weeks. He presented not in volume overload but significantly uremic and hyperkalemic hyperkalemia was temporally treated with medications in the ER and improved Patient was then dialyzed -hyperkalemia has improved Nephrology is following and electrolytes acceptable. -will discuss with Nephrology regarding dialysis (7) Hyperkalemia: Code(s): E87.5 - Hyperkalemia Status: Acute Assessment and Plan: Resolved after initial treatment with medications and later dialysis (8) Hematoma: Code(s): T14.8XXA - Other injury of unspecified body region, initial encounter Status: Acute Assessment and Plan: Hematoma of the left cheek, discussed with Dr. Noriega General surgery. It does not need to be drained and should resorb conservatively. It does not appear infected at patient has normal white cell count and denies any pain at the site obviously avoid any anticoagulation at this time (9) Fall: Code(s): W19.XXXA - Unspecified fall, initial encounter Status: Acute Assessment and Plan: Not sure if patient ever lost consciousness he is a poor historian unable to give any details and this happened almost 2 weeks ago as per him. Imaging reviewed for injuries and shows last show maxillary soft tissue hematoma CT Head IMPRESSION: 1. No acute intracranial abnormality. 2. Large left maxillar
[2021-05-09 12:16] LABS: Alveolar/Arterial O2 Gradient 82.7 mmHg; Base Excess ABG 0.8 mEq/l (+/-2.0); Fractional Inspired Oxygen 30 %; HCO3 ABG 24.1 mEq/l (22.0-26.0); Modified Allen's Test Pass; Oxygen Content ABG 11.9 %vol (16.0-22.0); Oxygen Saturation ABG 97.6 % (95.0-100.0); Oxyhemoglobin 94.8 % THb (90.0-100.0); PCO2 ABG 33.1 mmHg (35.0-45.0); PO2 ABG 92.3 mmHg (80.0-100.0); PO2 FiO2 Ratio Arterial Blood 3.08 %; Site Drawn RIGHT RADIAL; Total Hemoglobin 8.8 g/dL (12.0-18.0)
[2021-05-09 12:17] LABS: Arterial Blood Gas PEEP 5 cmH2O; Arterial Blood Gas Pressure Support 8 cmH2O; Arterial Blood Gas Vent Mode SPONTANEOUS; Device VENTILATOR
[2021-05-09 12:17] LABS: Glucose Point of Care 162 mg/dl (65-105)
--- NOTE | 2021-05-09 12:38 | PCFNICU ---
ICU Rounding Note: Pt current nutrition is NPO. Last recorded weight is 87.3 kg. Bowel Motility:+BM reported 11.7 Labs Reviewed:Glu 167, GFR 4, BUN 107, Cr 13.9 Meds Noted:Folic Acid, Thiamine, Keppra, Lactulose, Protonix Skin: bruising to chest, Left cheek. Additional Notes: EEG today. Tube feedings have stopped at this time with plans for breathing trial today. Following daily in ICU rounds.
--- NOTE | 2021-05-09 12:47 | PDONCCN ---
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 Patient came into the ER status post fall with resultant head injury. He was complaining of tiredness and fatigue. According to the note description patient missed hemodialysis for last 3 weeks duration. Patient is noncompliant. He developed nausea vomiting after the last dialysis and then had [address] scan was performed that came back inconclusive. He was briefly intubated. He is currently extubated. He denies any bleeding but does have extensive bruising in the upper chest and the back as well as [place] [address] with hemoglobin of 8.3. CT scan abdomen and pelvis showed cirrhosis of the liver with ascites and marked splenomegaly with nonocclusive thrombus in the right internal jugular vein. Review of Systems - Review of Systems All systems reviewed & are unremarkable except as noted in HPI and bel - Neurologic Reports system reviewed and no additional complaints, except as documented, Reports confusion PMF Medical History: Medical History (Last Reviewed 05/07/21 @ 14:35 by Ryan Ace MD) Alcoholic liver failure Cirrhosis Coagulopathy Encephalopathy, hepatic Erythropoietin deficiency anemia ESRD needing dialysis Renal osteodystrophy Thrombocytopenia - Social History Social History: Social History (Last Reviewed 05/07/21 @ 14:35 by Ryan Ace MD) Alcohol Use: Alcohol intake: current Drinks per week: 3 Substance Use: Substance use: never Others: Spiritual care concerns: No Smoking Status: Smoking status: Never smoker Meds Home Medications Medication Instructions Recorded Confirmed Type amlodipine 5 mg PO DAILY 05/06/21 05/09/21 History avatrombopag [Doptelet (15 tab mg PO 05/06/21 History pack)] ciprofloxacin HCl 250 mg PO DAILY 05/06/21 05/09/21 History halobetasol propionate 1 applic TOPICAL BID 05/06/21 05/09/21 History lisinopril 20 mg PO DAILY 05/06/21 05/09/21 History nadolol 20 mg PO DAILY 05/06/21 05/09/21 History pantoprazole 40 mg PO DAILY 05/06/21 05/09/21 History peg 3350-electrolytes 05/06/21 History sevelamer carbonate 1,600 mg PO TIDWMEAL 05/06/21 05/09/21 History sildenafil 05/06/21 History trazodone 50 mg PO HS PRN 05/06/21 05/09/21 History Allergies Allergy/AdvReac Type Severity Reaction Status Date / Time No Known Allergies Allergy Unknown Verified 01/22/19 15:29 Results - Labs CBC & Chem 7: 05/09/21 04:48 05/09/21 04:48 Labs: Short CBC 05/08/21 05/09/21 Range/Units 15:59 04:48 WBC 7.4 8.2 (4.5-10.0) K/mm3 Hgb 8.2 L 8.3 L (14.0-18.0) g/dL Hct 24.8 L 25.0 L (42.0-52.0) % Plt Count 30 L 31 L (150-375) k/mm3 BMP 05/09/21 04:48 Sodium 139 Potassium 3.6 Chloride 99 Carbon Dioxide 25 BUN 107 H D Creatinine 13.90 H Glucose 167 H Calcium 9.2 Liver Function 05/09/21 Range/Units 04:48 Total Bilirubin 2.0 H (0.2-1.3) mg/dL AST 31 (17-59) U/L ALT 20 (4-50) U/L Alkaline Phosphatase 312 H (38-126) U/L Albumin 3.5 (3.5-5.1) g/dL Assessment and Plan - Additional Plan Thrombocytopenia. Patient is a 55-year-old male with history of alcoholic liver cirrhosis with marked splenomegaly. This is likely the reason for thrombocytopenia. He is not bleeding but does have bruising status post fall. We will order further testing for thrombocytopenia that would include iron panel and vitamin B12 level. We will recommend transfusion of platelets for any platelet count of less than 20,000. Anemia. This is secondary to anemia
[2021-05-09 13:44] LABS: Iron 31 ug/dL (49-181)
[2021-05-09 14:52] LABS: Folic Acid > 20.0 ng/mL (2.76->20); Vitamin B12 > 1000.0 pg/mL (239-931)
[2021-05-09 17:03] LABS: Glucose Point of Care 132 mg/dl (65-105)
--- NOTE | 2021-05-09 17:37 | PM.PNNEP ---
Progress Note: A&P Assessment and Plan (1) ESRD needing dialysis: Code(s): N18.6 - End stage renal disease; Z99.2 - Dependence on renal dialysis Status: Chronic Assessment and Plan: plan HD tomorrow slowly titrate treatment to maximize clearance of uremic toxins follow electrolytes, volume status, and clearance (2) Alcoholic liver failure: Code(s): K70.40 - Alcoholic hepatic failure without coma Status: Acute Assessment and Plan: patient had not been taking lactulose prior to admission ammonia levels very high on presentation back on lactulose and ammonia levels are improved (3) Encephalopathy, hepatic: Code(s): K72.90 - Hepatic failure, unspecified without coma Status: Acute Assessment and Plan: Ammonia level is better mentation appears to be improving as well (4) Jugular vein thrombosis, right: Code(s): I82.890 - Acute embolism and thrombosis of other specified veins Status: Acute Assessment and Plan: no anticoagulation indicated since he has bleeding/bruises new HD catheter placement??? (5) Coagulopathy: Code(s): D68.9 - Coagulation defect, unspecified Status: Acute Assessment and Plan: due to liver disease getting FFP as needed (6) Thrombocytopenia: Code(s): D69.6 - Thrombocytopenia, unspecified Status: Acute Assessment and Plan: due to increased reticular endothelial uptake. getting platelets as needed (7) Erythropoietin deficiency anemia: Code(s): D63.1 - Anemia in chronic kidney disease Status: Acute Assessment and Plan: continue Epogen with dialysis follow trend of H/H (8) Renal osteodystrophy: Code(s): N25.0 - Renal osteodystrophy Status: Acute Assessment and Plan: follow calcium and phosphorus Will continue to follow. Subjective Date/time seen: 05/09/21 17:37 Chart reviewed -- assuming care from Dr. Norris; tolerated dialysis yesterday without any issues or problems; I was under the impression that HD catheter was to be replaced today but this did not seem to have happened but given his platelet count and coagulation issues, this may not be safe at this time; extubated earlier today and respiratory status stable on 2L nasal cannula. Exam Narrative: General: male in NAD Heart: normal S1 and S2; no rub Lungs: clear to auscultation Abdomen: soft, nontender, nondistended, positive bowel sounds Extremities: no cyanosis or clubbing; no edema Skin: multiple ecchymoses present Objective Data Vital Signs Vital Signs: Vital Signs Temp Pulse Resp BP Pulse Ox 05/09/21 16:00 37.1 C 88 16 160/76 H 99 05/09/21 14:00 89 16 170/83 H 97 05/09/21 12:25 99 05/09/21 12:00 37.2 C 86 14 155/78 H 97 05/09/21 10:41 86 99 05/09/21 10:00 86 16 165/81 H 98 05/09/21 08:34 88 05/09/21 08:00 37.3 C 88 20 165/80 H 98 05/09/21 07:44 90 99 05/09/21 06:00 90 16 172/85 H 100 05/09/21 05:00 90 99 05/09/21 04:00 36.7 C 89 16 174/84 H 98 05/09/21 02:00 87 19 166/79 H 100 05/09/21 00:00 36.8 C 84 20 161/78 H 100 05/08/21 23:00 83 100 05/08/21 22:00 86 16 156/78 H 100 05/08/21 20:12 87 100 05/08/21 20:00 36.7 C 86 20 150/72 H 100 Intake/Output Intake/Output: Intake & Output 05/07/21 05/08/21 05/08/21 05/09/21 00:59 00:59 23:59 23:59 Intake Total 1108 Output Total 0 Balance 1108 Meds/Results Medications: Active Medications Generic Name Dose Route Start Last Admin Trade Name Freq PRN Reason Stop Dose Admin Calcium Carbonate 200 mg 05/06/21 10:41 Calcium Carbonate (Tums) 500 Mg (200 Mg Elemental) PO Q6H PRN Indigestion Dextrose 12.5 gm 05/07/21 07:40 Dextrose 50% 25 Gm/50 Ml Syringe IV PUSH PRN PRN Hypoglycemia Protocol Folic Acid 1 mg 05/07/21 13:
[2021-05-10] VITALS (25 sets, daily range): BP systolic 102–167; BP diastolic 63–82; PULSE 80–93; RESP 14–23; TEMP 36.4–37.7; O2SAT 94–98
[2021-05-10 05:22] LABS: Basophils Percent Auto 0.2 % (0.2-1.2); Eosinophils Absolute Auto 0.1 K/mm3 (0-0.3); Eosinophils Percent Auto 1.8 % (0-4.4); Hematocrit 24.7 % (42.0-52.0); Hemoglobin 8.2 g/dL (14.0-18.0); Immature Granulocyte Absolute 0.02 K/mm3 (0.00-0.031); Immature Granulocyte Percent A 0.4 % (0-0.5); Immature Platelet Fraction Pct 4.5 % (0.9-11.2); Lymphocytes Percent Auto 7.2 % (18.3-44.2); Mean Corpuscular HGB Conc 33.2 g/dl (32-36); Mean Corpuscular Hemoglobin 32.3 pg (26-34); Mean Corpuscular Volume 97.2 fl (80-100); Mean Platelet Volume 13.1 fl (7.4-10.4); Monocytes Absolute Auto 0.7 K/mm3 (0.1-0.6); Monocytes Percent Auto 12.7 % (2.6-8.5); Neutrophils Absolute Auto 4.3 K/mm3 (1.3-6.7); Neutrophils Percent Auto 77.7 % (45.5-73.1); Platelet Count Result 26 k/mm3 (150-375); Red Blood Count 2.54 M/mm3 (4.6-6.20); White Blood Count 5.6 K/mm3 (4.5-10.0)
[2021-05-10 05:35] LABS: Lactic Acid Reflex 1.1 mmol/L (0.7-2.1)
[2021-05-10 05:39] LABS: INR 1.7; Prothrombin Time 19.2 Seconds (11.1-14.7)
[2021-05-10 05:49] LABS: Alanine Aminotransferase 18 U/L (4-50); Albumin Level 3.3 g/dL (3.5-5.1); Alkaline Phosphatase 247 U/L (38-126); Anion Gap 14 mmol/L (8-16); Aspartate Amino Transferase 30 U/L (17-59); Bilirubin,Total 2.4 mg/dL (0.2-1.3); Calcium 9.5 mg/dL (8.4-10.2); Carbon Dioxide 25 mmol/L (22-30); Chloride 101 mmol/L (98-107); Estimated CRCL calculation 5 ml/min; Estimated Glomerular Filt Rate 3; Glucose 129 mg/dL (65-110); Magnesium 1.8 mg/dL (1.6-2.3); Phosphorus 6.4 mg/dL (2.5-4.5); Potassium 4.2 mmol/L (3.4-5.0); Sodium 140 mmol/L (137-145)
[2021-05-10 06:48] LABS: Blood Urea Nitrogen 124 mg/dL (9-20)
--- NOTE | 2021-05-10 09:10 | WPDINTPN ---
Progress Note: A&P Assessment and Plan (1) Acute respiratory failure: Code(s): J96.00 - Acute respiratory failure, unspecified whether with hypoxia or hypercapnia Status: Acute Assessment and Plan: Acute Respiratory failure secondary to status epilepticus. Patient intubated for protection of airway secondary to seizure activity Patient successfully extubate 05/09/2021 -currently on room air with good O2 sats -will increase activity, encourage incentive spirometry (2) Convulsive status epilepticus: Code(s): G40.901 - Epilepsy, unspecified, not intractable, with status epilepticus Status: Acute Assessment and Plan: Patient had multiple seizures post dialysis on 05/07/2021. Etiology of that is not fully clear but suspect Dialysis disequilibrium syndrome Head CT was negative He has not had any clinical seizures overnight EEG was done 05/09/2021, and pending reports Neurology is following the patient Continue Keppra Patient is awake, alert, follows simple commands in all extremities (3) Encephalopathy acute: Code(s): G93.40 - Encephalopathy, unspecified Status: Acute Assessment and Plan: Resolved Patient had been encephalopathic since he had his seizures. This could be postictal. -ammonia levels have normalized Head CT done post status epilepticus and intubation was unremarkable EEG done, pending report He is still uremic, dialysis likely to be done today (4) Tongue laceration: Code(s): S01.512A - Laceration without foreign body of oral cavity, initial encounter Status: Acute Assessment and Plan: Patient bit his tongue during seizure, hemoglobin is stable - (5) Anemia: Code(s): D64.9 - Anemia, unspecified Status: Acute Assessment and Plan: He has multiple reasons for anemia and his hemoglobin has dropped overnight this could be exacerbated by tongue bite Patient was transfused 2 units of PRBC and 2 units of platelets 05/07 I will also give him some vitamin K He did get some FFP 05/06 Hemoglobin has been stable and improving, will continue to monitor (6) ESRD needing dialysis: Code(s): N18.6 - End stage renal disease; Z99.2 - Dependence on renal dialysis Status: Chronic Assessment and Plan: noncompliant and missed dialysis for 3 weeks. He presented not in volume overload but significantly uremic and hyperkalemic hyperkalemia was temporally treated with medications in the ER and improved Patient was then dialyzed -hyperkalemia has improved Nephrology is following and electrolytes acceptable. -will discuss with Nephrology regarding dialysis (7) Hyperkalemia: Code(s): E87.5 - Hyperkalemia Status: Acute Assessment and Plan: Resolved after initial treatment with medications and later dialysis (8) Hematoma: Code(s): T14.8XXA - Other injury of unspecified body region, initial encounter Status: Acute Assessment and Plan: Hematoma of the left cheek, discussed with Dr. Noriega General surgery. It does not need to be drained and should resorb conservatively. It does not appear infected at patient has normal white cell count and denies any pain at the site obviously avoid any anticoagulation at this time (9) Fall: Code(s): W19.XXXA - Unspecified fall, initial encounter Status: Acute Assessment and Plan: Not sure if patient ever lost consciousness he is a poor historian unable to give any details and this happened almost 2 weeks ago as per him. Imaging reviewed for injuries and shows last show maxillary soft tissue hematoma CT Head IMPRESSION: 1. No acute intracranial abnormality. 2. Large left maxillary soft tissue hematoma. CT facial and cervical spine IMPRESSION: 1. Large left maxillary soft tissue hematoma without facial bone fracture. 2. Mild cervical spondylosis without acute findings. CT T/A/P IMPRESSION: 1. Likely subacute mildly com
--- NOTE | 2021-05-10 09:30 | PCSTNOTE ---
Please refer to the Bedside Swallow Evaluation in the EMR. Please note, silent aspiration cannot be ruled out at bedside.
--- NOTE | 2021-05-10 10:05 | PCOTNOTE ---
Attempted OT evaluation, per RN patient is having dialysis at this time, will follow and attempt at later time.
--- NOTE | 2021-05-10 10:38 | PCPTNOTE ---
Attempted PT evaluation, per RN patient is having dialysis at this time, will follow and attempt at later time.
--- NOTE | 2021-05-10 10:52 | PM.PNNEP ---
Progress Note: A&P Assessment and Plan (1) ESRD needing dialysis: Code(s): N18.6 - End stage renal disease; Z99.2 - Dependence on renal dialysis Status: Chronic Assessment and Plan: HD today and continue T/T/S dialysis schedule slowly titrate treatment to maximize clearance of uremic toxins follow electrolytes, volume status, and clearance (2) Alcoholic liver failure: Code(s): K70.40 - Alcoholic hepatic failure without coma Status: Acute Assessment and Plan: patient had not been taking lactulose prior to admission ammonia levels very high on presentation back on lactulose and ammonia levels are improved (3) Encephalopathy, hepatic: Code(s): K72.90 - Hepatic failure, unspecified without coma Status: Acute Assessment and Plan: ammonia level is better mentation appears to be improving as well (4) Jugular vein thrombosis, right: Code(s): I82.890 - Acute embolism and thrombosis of other specified veins Status: Acute Assessment and Plan: no anticoagulation indicated since he has bleeding/bruises holding on new HD catheter placement given issues with platelets/INR (5) Coagulopathy: Code(s): D68.9 - Coagulation defect, unspecified Status: Acute Assessment and Plan: due to liver disease getting FFP as needed (6) Thrombocytopenia: Code(s): D69.6 - Thrombocytopenia, unspecified Status: Acute Assessment and Plan: due to increased reticular endothelial uptake. getting platelets as needed (7) Erythropoietin deficiency anemia: Code(s): D63.1 - Anemia in chronic kidney disease Status: Acute Assessment and Plan: continue Epogen with dialysis follow trend of H/H (8) Renal osteodystrophy: Code(s): N25.0 - Renal osteodystrophy Status: Acute Assessment and Plan: follow calcium and phosphorus Will continue to follow. Subjective Date/time seen: 05/10/21 10:52 Tolerating dialysis at the time of my visit (seen on HD at 10:30AM); extubated yesterday and continues to do well; mentation seems stable if not back to baseline; no other acute issues/events overnight or earlier this AM. Exam Narrative: General: male in NAD Heart: normal S1 and S2; no rub Lungs: clear to auscultation Abdomen: soft, nontender, nondistended, positive bowel sounds Extremities: no cyanosis or clubbing; no edema Skin: multiple ecchymoses present Objective Data Vital Signs Vital Signs: Vital Signs Temp Pulse Resp BP Pulse Ox 05/10/21 10:00 84 159/78 H 05/10/21 09:54 84 152/72 H 05/10/21 09:45 36.7 C 82 18 144/80 H 05/10/21 06:00 36.8 C 82 18 157/66 H 98 05/10/21 04:00 36.6 C 84 14 167/78 H 96 05/10/21 02:00 36.8 C 80 16 155/77 H 98 05/10/21 00:00 84 16 163/79 H 98 05/09/21 22:00 86 17 147/75 H 97 05/09/21 21:45 86 18 95 05/09/21 20:53 89 98 05/09/21 19:59 87 18 99 05/09/21 19:51 36.6 C 87 17 156/73 H 99 05/09/21 19:50 87 17 99 05/09/21 19:49 87 05/09/21 18:00 85 16 154/76 H 100 05/09/21 16:00 37.1 C 88 16 160/76 H 99 05/09/21 14:00 89 16 170/83 H 97 05/09/21 12:25 99 05/09/21 12:00 37.2 C 86 14 155/78 H 97 Intake/Output Intake/Output: Intake & Output 05/08/21 05/08/21 05/09/21 05/10/21 00:59 23:59 23:59 23:59 Intake Total 1208 50 Output Total 0 Balance 1208 50 Meds/Results Medications: Active Medications Generic Name Dose Route Start Last Admin Trade Name Freq PRN Reason Stop Dose Admin Calcium Carbonate 200 mg 05/06/21 10:41 Calcium Carbonate (Tums) 500 Mg (200 Mg Elemental) PO Q6H PRN Indigestion Dextrose 12.5 gm 05/07/21 07:40 Dextrose 50% 25 Gm/50 Ml Syringe IV PUSH PRN PRN Hypoglycemia Protocol Epoetin Nasir-epbx 10,000 units 05/10/21 19:05 Epoetin Nasir-Epbx 10,0
--- NOTE | 2021-05-10 11:14 | WPDNEUROLOGY ---
Neurology EEG Report General Information Date of Study: 05/09/21 TEST eeg DIAGNOSIS Seizures CONDITION OF RECORDING unresponsive on vent EEG NUMBER [id number] CLINICAL HISTORY patient is in ICU on a vent, had a witnessed seizure 2 days ago. Has been off sedation since yesterday EEG DESCRIPTION whole record consists of low to medium voltage 1 to 3 hertz per 2nd delta activity superimposed by low-voltage beta activity. Bilateral symmetrical sleep activity seen admixed with the delta activity and multiple motions artifact. Non paroxysmal, nonfocal ,nonlateralizing. IMPRESSION abnormal record due to the presence of bihemispheric delta activity ,these abnormalities could be suggestive of underlying organic or metabolic encephalopathy or postictal state. There is no evidence of active seizures going on, clinical correlation recommended.
[2021-05-10] MEDS: EPOETIN ALFA-EPBX 10,000 UNITS/ML VIAL 10000 UNITS IV PUSH (11:46)
--- NOTE | 2021-05-10 12:01 | PCFNICU ---
ICU Rounding Note: Pt current nutrition is Minced and Moist, Level 5/Renal Dialysis. Last recorded weight is 87.3 kg. Bowel Motility:+BM reported 05/08 Labs Reviewed:BUN 124, Cr 15.6,Glu 129,Alb 3.3,Hct 24.7,Hgb 8.2 Meds Noted:Retacrit, Keppra, Folic Acid. Skin: Bruising on chest, left cheek. Additional Notes: Patient has been extubated, tube feedings discontinued. Bedside Swallow today recommending Minced and Moist, Level 5 diet. Dialysis today. Following daily in ICU rounds.
[2021-05-10 12:09] LABS: Percent Iron Saturation 14 % (20-50)
[2021-05-10] MEDS: nadoloL 20 MG TABLET PO (12:57)
[2021-05-10] MEDS: levETIRAcetam 500MG/NACL 100ML 500 MG/100 ML BAG 400 MG IVPB ×2 (12:57→22:18)
[2021-05-10] MEDS: FOLIC ACID 1 MG TABLET FEED TUBE (12:58)
[2021-05-10] MEDS: THIAMINE HCL 100 MG TABLET FEED TUBE (12:58)
[2021-05-10] MEDS: PANTOPRAZOLE SODIUM IV 40 MG VIAL IV PUSH (12:58)
[2021-05-10] MEDS: LACTULOSE 20 GM/30 ML UDC FEED TUBE ×2 (12:58→16:30)
[2021-05-10 13:28] LABS: Glucose Point of Care 105 mg/dl (65-105)
[2021-05-10 16:35] LABS: Glucose Point of Care 147 mg/dl (65-105)
--- NOTE | 2021-05-10 18:34 | PC.NURSE ---
This patient, Jj Cuello, was transferred to [id number] ] on 05/10/21 at 1836. Personal belongings sent with patient. Report given to [Judy HASKINS ]. Appropriate documentation sent with patient.
[2021-05-10 22:45] LABS: Glucose Point of Care 136 mg/dl (65-105)
[2021-05-11] VITALS (11 sets, daily range): BP systolic 132–148; BP diastolic 65–73; PULSE 64–97; RESP 18–22; TEMP 37–37.7; O2SAT 96–97
[2021-05-11] MEDS: ACETAMINOPHEN 325 MG TABLET 650 MG PO (00:11)
[2021-05-11 06:40] LABS: Basophils Percent Auto 0.4 % (0.2-1.2); Eosinophils Absolute Auto 0.1 K/mm3 (0-0.3); Eosinophils Percent Auto 2.5 % (0-4.4); Hematocrit 21.5 % (42.0-52.0); Immature Granulocyte Absolute 0.01 K/mm3 (0.00-0.031); Immature Granulocyte Percent A 0.2 % (0-0.5); Immature Platelet Fraction Pct 5.2 % (0.9-11.2); Lymphocytes Absolute Auto 0.76 K/mm3 (0.9-3.2); Lymphocytes Percent Auto 15.7 % (18.3-44.2); Mean Corpuscular HGB Conc 32.1 g/dl (32-36); Mean Corpuscular Hemoglobin 31.5 pg (26-34); Mean Corpuscular Volume 98.2 fl (80-100); Mean Platelet Volume 12.3 fl (7.4-10.4); Monocytes Absolute Auto 0.8 K/mm3 (0.1-0.6); Monocytes Percent Auto 15.7 % (2.6-8.5); Neutrophils Absolute Auto 3.2 K/mm3 (1.3-6.7); Neutrophils Percent Auto 65.5 % (45.5-73.1); Platelet Count Result 27 k/mm3 (150-375); Red Blood Count 2.19 M/mm3 (4.6-6.20); Red Cell Distribution Width 14.9 % (11.5-14.5); White Blood Count 4.8 K/mm3 (4.5-10.0)
[2021-05-11 06:51] LABS: Glucose Point of Care 96 mg/dl (65-105)
[2021-05-11 07:13] LABS: Alanine Aminotransferase 20 U/L (4-50); Albumin Level 3.1 g/dL (3.5-5.1); Alkaline Phosphatase 271 U/L (38-126); Anion Gap 12 mmol/L (8-16); Aspartate Amino Transferase 43 U/L (17-59); Blood Urea Nitrogen 89 mg/dL (9-20); Calcium 8.7 mg/dL (8.4-10.2); Carbon Dioxide 23 mmol/L (22-30); Chloride 98 mmol/L (98-107); Estimated CRCL calculation 9 ml/min; Estimated Glomerular Filt Rate 5; Glucose 105 mg/dL (65-110); Magnesium 1.7 mg/dL (1.6-2.3); Phosphorus 3.9 mg/dL (2.5-4.5); Potassium 4.3 mmol/L (3.4-5.0); Sodium 133 mmol/L (137-145)
[2021-05-11 07:29] LABS: INR 1.8; Prothrombin Time 20.9 Seconds (11.1-14.7)
[2021-05-11 07:46] LABS: Hemoglobin 6.9 g/dL (14.0-18.0)
[2021-05-11] MEDS: levETIRAcetam 500MG/NACL 100ML 500 MG/100 ML BAG 400 MG IVPB ×2 (08:16→20:23)
[2021-05-11] MEDS: PANTOPRAZOLE SODIUM IV 40 MG VIAL IV PUSH (08:17)
[2021-05-11] MEDS: LACTULOSE 20 GM/30 ML UDC FEED TUBE (08:18)
[2021-05-11] MEDS: nadoloL 20 MG TABLET PO (08:18)
[2021-05-11] MEDS: FOLIC ACID 1 MG TABLET FEED TUBE (08:18)
[2021-05-11] MEDS: THIAMINE HCL 100 MG TABLET FEED TUBE (08:18)
[2021-05-11 08:43] LABS: Glucose Point of Care 101 mg/dl (65-105)
--- NOTE | 2021-05-11 08:52 | PM.IMPN ---
Progress Note: A&P Assessment and Plan (1) Acute respiratory failure: Code(s): J96.00 - Acute respiratory failure, unspecified whether with hypoxia or hypercapnia Status: Acute Assessment and Plan: Acute Respiratory failure secondary to status epilepticus. Patient intubated for protection of airway secondary to seizure activity Patient successfully extubate 05/09/2021 -currently on room air with good O2 sats -will increase activity, encourage incentive spirometry (2) Convulsive status epilepticus: Code(s): G40.901 - Epilepsy, unspecified, not intractable, with status epilepticus Status: Acute Assessment and Plan: Patient had multiple seizures post dialysis on 05/07/2021. Etiology of that is not fully clear but suspect Dialysis disequilibrium syndrome Head CT was negative He has not had any clinical seizures overnight EEG was done 05/09/2021, and pending reports Neurology is following the patient Continue Keppra Patient is awake, alert, follows simple commands in all extremities. Patient was informed to stop driving until he is seizure-free for 6 month, per regulations in [place]. (3) Encephalopathy acute: Code(s): G93.40 - Encephalopathy, unspecified Status: Acute Assessment and Plan: Resolved Patient had been encephalopathic since he had his seizures. This could be postictal. -ammonia levels have normalized Head CT done post status epilepticus and intubation was unremarkable EEG done, pending report He he is doing a lot better. We will continue dialysis as scheduled. (4) Tongue laceration: Code(s): S01.512A - Laceration without foreign body of oral cavity, initial encounter Status: Acute Assessment and Plan: Patient bit his tongue during seizure, patient bled intermittently from his tongue laceration. Today's hemoglobin has dropped to 6.9. However - he is comfortable and denies any symptoms. Patient will receive blood transfusion during dialysis tomorrow. (5) Anemia: Code(s): D64.9 - Anemia, unspecified Status: Acute Assessment and Plan: Lead anemia is likely multifactorial, in the setting of end-stage renal disease and previous tongue laceration with profuse bleeding. Patient was previously transfused 2 units PRBC and 2 units platelets on 05/07. He also received FFP on 05/06. Hemoglobin has drifted down to 6.9. He received 2 units PRBC in a.m.. Continue erythropoiesis stimulating agents with hemodialysis. = (6) ESRD needing dialysis: Code(s): N18.6 - End stage renal disease; Z99.2 - Dependence on renal dialysis Status: Chronic Assessment and Plan: noncompliant and missed dialysis for 3 weeks. He presented not in volume overload but significantly uremic and hyperkalemic hyperkalemia was temporally treated with medications in the ER and improved Patient was then dialyzed -hyperkalemia has resolved. Nephrology is following and electrolytes acceptable. -continue hemodialysis on a Sunday and Sunday schedule. Patient was educated about importance of compliance to his dialysis to avoid additional complications. Referred to Transplant Nephrology evaluation upon discharge. (7) Hyperkalemia: Code(s): E87.5 - Hyperkalemia Status: Acute Assessment and Plan: Resolved after initial treatment with medications and later dialysis. Continue low-potassium diet. (8) Hematoma: Code(s): T14.8XXA - Other injury of unspecified body region, initial encounter Status: Acute Assessment and Plan: Hematoma of the left cheek, discussed with Dr. Noriega General surgery. It does not need to be drained and should resorb conservatively. It does not appear infected at patient has normal white cell count and denies any pain at the site obviously avoid any anticoagulation at this time (9) Fall: Code(s): W19.XXXA - Unspecified fall, initial encounter Status: A
[2021-05-11 12:01] LABS: Glucose Point of Care 123 mg/dl (65-105)
--- NOTE | 2021-05-11 16:19 | P.PNNP_ITS ---
Progress Note: A&P Assessment and Plan (1) ESRD needing dialysis: Code(s): N18.6 - End stage renal disease; Z99.2 - Dependence on renal dialysis Status: Chronic Assessment and Plan: * HD tomorrow and continue T/T/S dialysis schedule * slowly titrate treatment to maximize clearance of uremic toxins * follow electrolytes, volume status, and clearance (2) Alcoholic liver failure: Code(s): K70.40 - Alcoholic hepatic failure without coma Status: Acute Assessment and Plan: * patient had not been taking lactulose prior to admission * ammonia levels very high on presentation * back on lactulose and ammonia levels are improved (3) Encephalopathy, hepatic: Code(s): K72.90 - Hepatic failure, unspecified without coma Status: Acute Assessment and Plan: * ammonia level is better * mentation appears to be improving as well (4) Jugular vein thrombosis, right: Code(s): I82.890 - Acute embolism and thrombosis of other specified veins Status: Acute Assessment and Plan: * no anticoagulation indicated since he has bleeding/bruises * holding on new HD catheter placement given issues with platelets/INR (5) Coagulopathy: Code(s): D68.9 - Coagulation defect, unspecified Status: Acute Assessment and Plan: * due to liver disease * getting FFP as needed (6) Thrombocytopenia: Code(s): D69.6 - Thrombocytopenia, unspecified Status: Acute Assessment and Plan: * due to increased reticular endothelial uptake. * getting platelets as needed (7) Erythropoietin deficiency anemia: Code(s): D63.1 - Anemia in chronic kidney disease Status: Acute Assessment and Plan: * continue Epogen with dialysis * follow trend of H/H * plan PRBC transfusion with HD tomorrow (8) Renal osteodystrophy: Code(s): N25.0 - Renal osteodystrophy Status: Acute Assessment and Plan: * follow calcium and phosphorus Will continue to follow. Subjective Date/time seen: 05/11/21 16:19 Tolerated dialysis yesterday without any issues or problems; no apparent distress voiced; transferred out of ICU yesterday following dialysis treatment; no further seizure activity; no events overnight or earlier this morning. Exam Narrative: General: male in NAD Heart: normal S1 and S2; no rub Lungs: clear to auscultation Abdomen: soft, nontender, nondistended, positive bowel sounds Extremities: no cyanosis or clubbing; no edema Skin: multiple ecchymoses noted Objective Data Vital Signs Vital Signs: Vital Signs Temp Pulse Resp BP Pulse Ox 05/11/21 16:00 70 05/11/21 14:00 37.1 C 75 22 H 138/68 97 05/11/21 12:00 70 05/11/21 08:18 64 05/11/21 08:00 70 05/11/21 06:17 37.0 C 64 18 132/65 96 05/11/21 04:00 74 Intake/Output Intake/Output: Intake & Output 05/09/21 05/10/21 05/11/21 05/12/21 23:59 23:59 23:59 23:59 Intake Total 1208 1480 1180 Output Total 0 1480 Balance 1208 0 1180 Meds/Results Medications: Active Medications Generic Name Dose Route Start Last Admin Trade Name Freq PRN Reason Stop Dose Admin Calcium Carbonate 200 mg 05/06/21 10:41
--- NOTE | 2021-05-11 16:19 | PM.PNNEP ---
Progress Note: A&P Assessment and Plan (1) ESRD needing dialysis: Code(s): N18.6 - End stage renal disease; Z99.2 - Dependence on renal dialysis Status: Chronic Assessment and Plan: HD tomorrow and continue T/T/S dialysis schedule slowly titrate treatment to maximize clearance of uremic toxins follow electrolytes, volume status, and clearance (2) Alcoholic liver failure: Code(s): K70.40 - Alcoholic hepatic failure without coma Status: Acute Assessment and Plan: patient had not been taking lactulose prior to admission ammonia levels very high on presentation back on lactulose and ammonia levels are improved (3) Encephalopathy, hepatic: Code(s): K72.90 - Hepatic failure, unspecified without coma Status: Acute Assessment and Plan: ammonia level is better mentation appears to be improving as well (4) Jugular vein thrombosis, right: Code(s): I82.890 - Acute embolism and thrombosis of other specified veins Status: Acute Assessment and Plan: no anticoagulation indicated since he has bleeding/bruises holding on new HD catheter placement given issues with platelets/INR (5) Coagulopathy: Code(s): D68.9 - Coagulation defect, unspecified Status: Acute Assessment and Plan: due to liver disease getting FFP as needed (6) Thrombocytopenia: Code(s): D69.6 - Thrombocytopenia, unspecified Status: Acute Assessment and Plan: due to increased reticular endothelial uptake. getting platelets as needed (7) Erythropoietin deficiency anemia: Code(s): D63.1 - Anemia in chronic kidney disease Status: Acute Assessment and Plan: continue Epogen with dialysis follow trend of H/H plan PRBC transfusion with HD tomorrow (8) Renal osteodystrophy: Code(s): N25.0 - Renal osteodystrophy Status: Acute Assessment and Plan: follow calcium and phosphorus Will continue to follow. Subjective Date/time seen: 05/11/21 16:19 Tolerated dialysis yesterday without any issues or problems; no apparent distress voiced; transferred out of ICU yesterday following dialysis treatment; no further seizure activity; no events overnight or earlier this morning. Exam Narrative: General: male in NAD Heart: normal S1 and S2; no rub Lungs: clear to auscultation Abdomen: soft, nontender, nondistended, positive bowel sounds Extremities: no cyanosis or clubbing; no edema Skin: multiple ecchymoses noted Objective Data Vital Signs Vital Signs: Vital Signs Temp Pulse Resp BP Pulse Ox 05/11/21 16:00 70 05/11/21 14:00 37.1 C 75 22 H 138/68 97 05/11/21 12:00 70 05/11/21 08:18 64 05/11/21 08:00 70 05/11/21 06:17 37.0 C 64 18 132/65 96 05/11/21 04:00 74 Intake/Output Intake/Output: Intake & Output 05/09/21 05/10/21 05/11/21 05/12/21 23:59 23:59 23:59 23:59 Intake Total 1208 1480 1180 Output Total 0 1480 Balance 1208 0 1180 Meds/Results Medications: Active Medications Generic Name Dose Route Start Last Admin Trade Name Freq PRN Reason Stop Dose Admin Calcium Carbonate 200 mg 05/06/21 10:41 Calcium Carbonate (Tums) 500 Mg (200 Mg Elemental) PO Q6H PRN Indigestion Dextrose 12.5 gm 05/07/21 07:40 Dextrose 50% 25 Gm/50 Ml Syringe IV PUSH PRN PRN Hypoglycemia Protocol Folic Acid 1 mg 05/07/21 13:45 05/11/21 08:18 Folic Acid 1 Mg Tablet FEED TUBE 1 mg DAILY DARWIN Administration Glucagon 1 mg 05/07/21 07:40 Glucagon For Inj 1 Mg Vial IM PRN PRN Hypoglycemia Protocol Glucose 15 gm 05/07/21 07:40 Glucose Oral Gel 15 Gm Of Glucse In 37.5 Gm Tube PO PRN PRN Hypoglycemia Protocol Levetiracetam 500 mg in 100 mls @ 400 mls/hr 05/07/21 09:00 05/11/21 20:23 Keppra Iv IVPB 400 mls/hr Q12HR DARWIN Administration Dextrose
[2021-05-11 17:48] LABS: Glucose Point of Care 103 mg/dl (65-105)
[2021-05-11] MEDS: ONDANSETRON INJ 4 MG/2 ML VIAL IV PUSH (17:52)
[2021-05-11 21:53] LABS: Heparin Induced Platelet Antib Negative (Negative)
[2021-05-11 23:36] LABS: Glucose Point of Care 99 mg/dl (65-105)
[2021-05-12] VITALS (36 sets, daily range): BP systolic 130–181; BP diastolic 68–96; PULSE 73–94; RESP 16–18; TEMP 36–37.6; O2SAT 94–98
[2021-05-12 06:54] LABS: INR 1.7; Prothrombin Time 19.2 Seconds (11.1-14.7)
[2021-05-12 07:42] LABS: Glucose Point of Care 110 mg/dl (65-105)
[2021-05-12] MEDS: PANTOPRAZOLE SODIUM IV 40 MG VIAL IV PUSH (09:03)
[2021-05-12] MEDS: levETIRAcetam 500MG/NACL 100ML 500 MG/100 ML BAG 400 MG IVPB ×2 (09:08→20:47)
--- NOTE | 2021-05-12 09:36 | PC.NURSE ---
To dialysis per bed.
--- NOTE | 2021-05-12 09:54 | PCPTNOTE ---
Patient in dialysis. Will check back later.
--- NOTE | 2021-05-12 11:42 | PCOTNOTE ---
Patient in dialysis, unavailable. Will attempt to see for OT if possible later today.
[2021-05-12] MEDS: SODIUM CHLORIDE 0.9% IV 250 ML 30 ML IV CONT (11:54)
[2021-05-12] MEDS: EPOETIN ALFA-EPBX 10,000 UNITS/ML VIAL 10000 UNITS IV PUSH (11:55)
--- NOTE | 2021-05-12 12:40 | P.PNNP_ITS ---
Progress Note: A&P Assessment and Plan (1) ESRD needing dialysis: Code(s): N18.6 - End stage renal disease; Z99.2 - Dependence on renal dialysis Status: Chronic Assessment and Plan: * HD today and continue T/T/S dialysis schedule * slowly titrate treatment to maximize clearance of uremic toxins * follow electrolytes, volume status, and clearance (2) Alcoholic liver failure: Code(s): K70.40 - Alcoholic hepatic failure without coma Status: Acute Assessment and Plan: * patient had not been taking lactulose prior to admission * ammonia levels very high on presentation * back on lactulose and ammonia levels are improved (3) Encephalopathy, hepatic: Code(s): K72.90 - Hepatic failure, unspecified without coma Status: Acute Assessment and Plan: * ammonia level is better * mentation appears to be improving as well (4) Jugular vein thrombosis, right: Code(s): I82.890 - Acute embolism and thrombosis of other specified veins Status: Acute Assessment and Plan: * no anticoagulation indicated since he has bleeding/bruises * holding on new HD catheter placement given issues with platelets/INR (5) Coagulopathy: Code(s): D68.9 - Coagulation defect, unspecified Status: Acute Assessment and Plan: * due to liver disease * getting FFP as needed (6) Thrombocytopenia: Code(s): D69.6 - Thrombocytopenia, unspecified Status: Acute Assessment and Plan: * due to increased reticular endothelial uptake * getting platelets as needed (7) Erythropoietin deficiency anemia: Code(s): D63.1 - Anemia in chronic kidney disease Status: Acute Assessment and Plan: * continue Epogen with dialysis * follow trend of H/H * PRBC transfusion with HD todar (8) Renal osteodystrophy: Code(s): N25.0 - Renal osteodystrophy Status: Acute Assessment and Plan: * follow calcium and phosphorus Will continue to follow. Subjective Date/time seen: 05/12/21 12:40 Tolerating hemodialysis at the time of my visit (seen on HD at 12:30PM); received 2 units of PRBCs with dialysis; somewhat sleepy but responsive with questioning; no apparent distress noted; no events/issues overnight or earlier this morning. Exam Narrative: General: male in NAD Heart: normal S1 and S2; no rub Lungs: clear to auscultation Abdomen: soft, nontender, nondistended, positive bowel sounds Extremities: no cyanosis or clubbing; no edema Skin: multiple ecchymoses noted Objective Data Vital Signs Vital Signs: Vital Signs Temp Pulse Resp BP Pulse Ox 05/12/21 12:30 94 152/96 H 05/12/21 12:15 93 170/96 H 05/12/21 12:12 36.8 C 93 16 170/96 H 05/12/21 12:00 94 154/95 H 05/12/21 11:57 36.8 C 90 16 157/93 H 05/12/21 11:40 36.8 C 90 16 156/89 H 05/12/21 11:30 90 150/92 H 05/12/21 11:19 90 158/86 H 05/12/21 11:15 37.2 C 90 16 158/86 H 05/12/21 11:02 37.2 C 90 16 148/78 H 05/12/21 11:00 90 148/78 H 05/12/21 10:45 89 151/89 H 05/12/21 10:30 92 181/88 H 05/12/21 10:15 89 158/86 H 05/12/21 10:00 155/92 H 05/12/21 09:53 88 155/93 H 05/12/21 09:43 37.6 C 87 16 161/93 H 05/12/21 09
--- NOTE | 2021-05-12 12:40 | PM.PNNEP ---
Progress Note: A&P Assessment and Plan (1) ESRD needing dialysis: Code(s): N18.6 - End stage renal disease; Z99.2 - Dependence on renal dialysis Status: Chronic Assessment and Plan: HD today and continue T/T/S dialysis schedule slowly titrate treatment to maximize clearance of uremic toxins follow electrolytes, volume status, and clearance (2) Alcoholic liver failure: Code(s): K70.40 - Alcoholic hepatic failure without coma Status: Acute Assessment and Plan: patient had not been taking lactulose prior to admission ammonia levels very high on presentation back on lactulose and ammonia levels are improved (3) Encephalopathy, hepatic: Code(s): K72.90 - Hepatic failure, unspecified without coma Status: Acute Assessment and Plan: ammonia level is better mentation appears to be improving as well (4) Jugular vein thrombosis, right: Code(s): I82.890 - Acute embolism and thrombosis of other specified veins Status: Acute Assessment and Plan: no anticoagulation indicated since he has bleeding/bruises holding on new HD catheter placement given issues with platelets/INR (5) Coagulopathy: Code(s): D68.9 - Coagulation defect, unspecified Status: Acute Assessment and Plan: due to liver disease getting FFP as needed (6) Thrombocytopenia: Code(s): D69.6 - Thrombocytopenia, unspecified Status: Acute Assessment and Plan: due to increased reticular endothelial uptake getting platelets as needed (7) Erythropoietin deficiency anemia: Code(s): D63.1 - Anemia in chronic kidney disease Status: Acute Assessment and Plan: continue Epogen with dialysis follow trend of H/H PRBC transfusion with HD todar (8) Renal osteodystrophy: Code(s): N25.0 - Renal osteodystrophy Status: Acute Assessment and Plan: follow calcium and phosphorus Will continue to follow. Subjective Date/time seen: 05/12/21 12:40 Tolerating hemodialysis at the time of my visit (seen on HD at 12:30PM); received 2 units of PRBCs with dialysis; somewhat sleepy but responsive with questioning; no apparent distress noted; no events/issues overnight or earlier this morning. Exam Narrative: General: male in NAD Heart: normal S1 and S2; no rub Lungs: clear to auscultation Abdomen: soft, nontender, nondistended, positive bowel sounds Extremities: no cyanosis or clubbing; no edema Skin: multiple ecchymoses noted Objective Data Vital Signs Vital Signs: Vital Signs Temp Pulse Resp BP Pulse Ox 05/12/21 12:30 94 152/96 H 05/12/21 12:15 93 170/96 H 05/12/21 12:12 36.8 C 93 16 170/96 H 05/12/21 12:00 94 154/95 H 05/12/21 11:57 36.8 C 90 16 157/93 H 05/12/21 11:40 36.8 C 90 16 156/89 H 05/12/21 11:30 90 150/92 H 05/12/21 11:19 90 158/86 H 05/12/21 11:15 37.2 C 90 16 158/86 H 05/12/21 11:02 37.2 C 90 16 148/78 H 05/12/21 11:00 90 148/78 H 05/12/21 10:45 89 151/89 H 05/12/21 10:30 92 181/88 H 05/12/21 10:15 89 158/86 H 05/12/21 10:00 155/92 H 05/12/21 09:53 88 155/93 H 05/12/21 09:43 37.6 C 87 16 161/93 H 05/12/21 09:05 88 05/12/21 05:49 36.9 C 87 18 130/74 98 05/12/21 04:00 87 05/12/21 00:00 92 05/11/21 22:00 37.6 C H 94 18 148/73 H 96 05/11/21 20:00 97 96 05/11/21 16:00 70 05/11/21 14:00 37.1 C 75 22 H 138/68 97 Intake/Output Intake/Output: Intake & Output 05/09/21 05/10/21 05/11/21 05/12/21 23:59 23:59 23:59 23:59 Intake Total 1208 1480 1280 400 Output Total 0 1480 2000 Balance 1208 0 1280 -1600 Meds/Results Medications: Active Medications Generic Name Dose Route Start Last Admin Trade Name Freq PRN Reason Stop Dose Admin Calcium Carbonate 200 mg 05/06/21 10:41 Calcium Carbonate (Tums) 500 Mg (200
[2021-05-12 12:41] LABS: Glucose Point of Care 109 mg/dl (65-105)
--- NOTE | 2021-05-12 13:14 | PC.NURSE ---
Return to room from dialysis.
--- NOTE | 2021-05-12 14:18 | PCPTNOTE ---
Didn't get to pt this afternoon. Nurse stated that the patient received 2 units of blood today.
--- NOTE | 2021-05-12 14:18 | PM.IMPN ---
Progress Note: A&P Assessment and Plan (1) Acute respiratory failure: Code(s): J96.00 - Acute respiratory failure, unspecified whether with hypoxia or hypercapnia Status: Acute Assessment and Plan: Acute Respiratory failure secondary to status epilepticus. Patient intubated for protection of airway secondary to seizure activity Patient successfully extubate 05/09/2021 -currently on room air with good O2 sats -will increase activity, encourage incentive spirometry (2) Convulsive status epilepticus: Code(s): G40.901 - Epilepsy, unspecified, not intractable, with status epilepticus Status: Acute Assessment and Plan: Patient had multiple seizures post dialysis on 05/07/2021. Etiology of that is not fully clear but suspect Dialysis disequilibrium syndrome Head CT was negative He has not had any clinical seizures overnight EEG was done 05/09/2021, and pending reports Neurology is following the patient Continue Keppra Patient is awake, alert, follows simple commands in all extremities. Patient was informed to stop driving until he is seizure-free for 6 month, per regulations in [place]. (3) Encephalopathy acute: Code(s): G93.40 - Encephalopathy, unspecified Status: Acute Assessment and Plan: Resolved Patient had been encephalopathic since he had his seizures. This could be postictal. -ammonia levels have normalized Head CT done post status epilepticus and intubation was unremarkable EEG done, pending report He he is doing a lot better. We will continue dialysis as scheduled. (4) Tongue laceration: Code(s): S01.512A - Laceration without foreign body of oral cavity, initial encounter Status: Acute Assessment and Plan: Patient bit his tongue during seizure, patient bled intermittently from his tongue laceration. Today's hemoglobin has dropped to 6.9. However - he is comfortable and denies any symptoms. Patient will receive blood transfusion during dialysis tomorrow. (5) Anemia: Code(s): D64.9 - Anemia, unspecified Status: Acute Assessment and Plan: Severe anemia is likely multifactorial, in the setting of end-stage renal disease and previous tongue laceration with profuse bleeding. Patient was previously transfused 2 units PRBC and 2 units platelets on 05/07. He also received FFP on 05/06. Hemoglobin has drifted down to 6.9. He has received platelets on 05/11/2021. He will receive 2 units PRBC in a.m. He will receive platelets today 05/12/2021. Continue erythropoiesis stimulating agents with hemodialysis. (6) ESRD needing dialysis: Code(s): N18.6 - End stage renal disease; Z99.2 - Dependence on renal dialysis Status: Chronic Assessment and Plan: noncompliant and missed dialysis for 3 weeks. He presented not in volume overload but significantly uremic and hyperkalemic hyperkalemia was temporally treated with medications in the ER and improved Patient was then dialyzed -hyperkalemia has resolved. Nephrology is following and electrolytes acceptable. -continue hemodialysis on a Sunday and Sunday schedule. Patient was educated about importance of compliance to his dialysis to avoid additional complications. Referred to Transplant Nephrology evaluation upon discharge. -continue dialysis as scheduled Tuesdays and Sunday. -patient seen during dialysis today. Stable run without issues. (7) Hyperkalemia: Code(s): E87.5 - Hyperkalemia Status: Acute Assessment and Plan: Resolved after initial treatment with medications and later dialysis. Continue low-potassium diet. (8) Hematoma: Code(s): T14.8XXA - Other injury of unspecified body region, initial encounter Status: Acute Assessment and Plan: Hematoma of the left cheek, discussed with Dr. Noriega General surgery. It does not need to be drained and should resorb conservatively. It does not appear inf
--- NOTE | 2021-05-12 14:44 | PCOTNOTE ---
Per RN, patient to receive 2 units platelets after returning from dialysis. Will attempt to see patient tomorrow instead for OT.
[2021-05-12] MEDS: TUBING, BLOOD PLUM PUMP TUBING 1 EACH XX (15:29)
[2021-05-12] MEDS: LABETALOL HCL INJ 100 MG/20 ML VIAL 20 MG IV PUSH (15:39)
[2021-05-12] MEDS: ACETAMINOPHEN 325 MG TABLET 650 MG PO (22:36)
[2021-05-13] VITALS (10 sets, daily range): BP systolic 153–161; BP diastolic 76–91; PULSE 70–103; RESP 18–20; TEMP 36.6–36.8; O2SAT 95–98
[2021-05-13] MEDS: levETIRAcetam 500MG/NACL 100ML 500 MG/100 ML BAG 400 MG IVPB ×2 (08:33→20:37)
[2021-05-13] MEDS: PANTOPRAZOLE SODIUM IV 40 MG VIAL IV PUSH (08:34)
[2021-05-13] MEDS: ACETAMINOPHEN 325 MG TABLET 650 MG PO ×2 (08:43→15:15)
[2021-05-13 11:09] LABS: Hemoglobin 9.6 g/dL (14.0-18.0); Immature Platelet Fraction Pct 4.1 % (0.9-11.2); Mean Corpuscular HGB Conc 33.1 g/dl (32-36); Mean Corpuscular Hemoglobin 30.8 pg (26-34); Mean Corpuscular Volume 92.9 fl (80-100); Red Blood Count 3.12 M/mm3 (4.6-6.20)
[2021-05-13 11:11] LABS: Platelet Count Result 41 k/mm3 (150-375)
[2021-05-13 11:23] LABS: Anion Gap 11 mmol/L (8-16); Blood Urea Nitrogen 68 mg/dL (9-20); Calcium 8.8 mg/dL (8.4-10.2); Carbon Dioxide 25 mmol/L (22-30); Chloride 99 mmol/L (98-107); Estimated CRCL calculation 10 ml/min; Estimated Glomerular Filt Rate 7; Glucose 128 mg/dL (65-110); Potassium 4.3 mmol/L (3.4-5.0); Sodium 135 mmol/L (137-145)
--- NOTE | 2021-05-13 11:41 | PM.IMPN ---
Progress Note: A&P Assessment and Plan (1) Acute respiratory failure: Code(s): J96.00 - Acute respiratory failure, unspecified whether with hypoxia or hypercapnia Status: Acute Assessment and Plan: Resolved acute Respiratory failure secondary to status epilepticus. Patient was previously intubated for protection of airway secondary to seizure activity. He was successfully extubated on 05/09/2021 -currently on room air with good O2 sats -will increase activity, encourage incentive spirometry. -PT OT (2) Convulsive status epilepticus: Code(s): G40.901 - Epilepsy, unspecified, not intractable, with status epilepticus Status: Acute Assessment and Plan: Patient had multiple seizures post dialysis on 05/07/2021. Etiology of that is not fully clear but suspect Dialysis disequilibrium syndrome Head CT was negative He has not had any additional episode of seizures overnight EEG was done 05/09/2021, no evidence of ongoing seizure activity. Neurology is following the patient. We will continue Keppra Patient is awake, alert, follows simple commands in all extremities. Patient was informed to stop driving until he is seizure-free for 6 month, per regulations in [place]. (3) Encephalopathy acute: Code(s): G93.40 - Encephalopathy, unspecified Status: Acute Assessment and Plan: Resolved Patient had been encephalopathic since he had his seizures. This could be postictal. -ammonia levels have normalized Head CT done post status epilepticus and intubation was unremarkable EEG done, report reviewed in neurology progress total from 05/10/2021. He he is doing a lot better. We will continue dialysis as scheduled. Patient educated about the need to remain sober in order to be considered for a liver transplant. Patient was evaluated for liver transplant as [facility]. His file was closed due to his ongoing ethylism. (4) Tongue laceration: Code(s): S01.512A - Laceration without foreign body of oral cavity, initial encounter Status: Acute Assessment and Plan: Patient bit his tongue during seizure, patient bled intermittently from his tongue laceration. Today's hemoglobin has dropped to 6.9. However - he is comfortable and denies any symptoms. Patient will receive blood transfusion during dialysis tomorrow. (5) Anemia: Code(s): D64.9 - Anemia, unspecified Status: Acute Assessment and Plan: Severe anemia is likely multifactorial, in the setting of end-stage renal disease and previous tongue laceration with profuse bleeding. Patient was previously transfused 2 units PRBC and 2 units platelets on 05/07. He also received FFP on 05/06. Hemoglobin has drifted down to 6.9. He has received platelets on 05/11/2021. He will receive 2 units PRBC in a.m. He will receive platelets today 05/12/2021. Continue erythropoiesis stimulating agents with hemodialysis. (6) ESRD needing dialysis: Code(s): N18.6 - End stage renal disease; Z99.2 - Dependence on renal dialysis Status: Chronic Assessment and Plan: noncompliant and missed dialysis for 3 weeks. He presented not in volume overload but significantly uremic and hyperkalemic hyperkalemia was temporally treated with medications in the ER and improved Patient was then dialyzed -hyperkalemia has resolved. Nephrology is following and electrolytes acceptable. -continue hemodialysis on a Sunday and Sunday per his regular schedule. Patient was educated about importance of compliance to his dialysis to avoid additional complications. Referred to liver and kidney Transplant evaluation upon discharge. -continue dialysis as scheduled Tuesdays and Sunday. -patient seen during dialysis on 05/12/2021. Stable run without issues. Next hemodialysis 05/14/2021 (7) Hyperkalemia: Code(s): E87.5 - Hyperkalemia Status: Acute Assessment and Plan: Resolved after initial willian
--- NOTE | 2021-05-13 13:28 | P.PNNP_ITS ---
Progress Note: A&P Assessment and Plan (1) ESRD needing dialysis: Code(s): N18.6 - End stage renal disease; Z99.2 - Dependence on renal dialysis Status: Chronic Assessment and Plan: * HD tomorrow and continue T/T/S dialysis schedule * slowly titrate treatment to maximize clearance of uremic toxins * follow electrolytes, volume status, and clearance (2) Alcoholic liver failure: Code(s): K70.40 - Alcoholic hepatic failure without coma Status: Acute Assessment and Plan: * patient had not been taking lactulose prior to admission * ammonia levels very high on presentation * back on lactulose and ammonia levels are improved (3) Encephalopathy, hepatic: Code(s): K72.90 - Hepatic failure, unspecified without coma Status: Acute Assessment and Plan: * ammonia level is better * mentation appears to be improving as well (4) Jugular vein thrombosis, right: Code(s): I82.890 - Acute embolism and thrombosis of other specified veins Status: Acute Assessment and Plan: * no anticoagulation indicated since he has bleeding/bruises * holding on new HD catheter placement given issues with platelets/INR (5) Coagulopathy: Code(s): D68.9 - Coagulation defect, unspecified Status: Acute Assessment and Plan: * due to liver disease * getting FFP as needed (6) Thrombocytopenia: Code(s): D69.6 - Thrombocytopenia, unspecified Status: Acute Assessment and Plan: * due to increased reticular endothelial uptake * getting platelets as needed (7) Erythropoietin deficiency anemia: Code(s): D63.1 - Anemia in chronic kidney disease Status: Acute Assessment and Plan: * continue Epogen with dialysis * follow trend of H/H * PRBC transfusion with HD todar (8) Renal osteodystrophy: Code(s): N25.0 - Renal osteodystrophy Status: Acute Assessment and Plan: * follow calcium and phosphorus Will continue to follow. Subjective Date/time seen: 05/13/21 13:28 Tolerated dialysis yesterday without any issues or problems; appears relatively well at the time of my visit; no acute issues/complaints voiced; no events overnight or earlier this morning; no acute distress noted. Exam Narrative: General: male in NAD Heart: normal S1 and S2; no rub Lungs: clear to auscultation Abdomen: soft, nontender, nondistended, positive bowel sounds Extremities: no cyanosis or clubbing; no edema Skin: multiple ecchymoses present Objective Data Vital Signs Vital Signs: Vital Signs Temp Pulse Resp BP Pulse Ox 05/13/21 12:00 78 05/13/21 08:46 72 05/13/21 06:00 36.8 C 72 18 153/76 H 97 05/13/21 04:00 70 05/13/21 00:00 73 05/12/21 21:42 37.4 C 78 18 143/72 H 98 05/12/21 21:31 95 05/12/21 20:00 78 05/12/21 18:30 36.7 C 73 16 135/68 97 05/12/21 17:30 36.4 C 76 18 171/76 H 98 05/12/21 17:15 36.6 C 76 18 173/78 H 97 05/12/21 16:50 36.7 C 73 16 154/78 H 97 05/12/21 16:00 75 05/12/21 15:44 36.7 C 73 16 157/68 H 94 05/12/21 15:39 76 Intake/Output Intake/Output: Intake & Output 05/10/21 05/11/21 05/12/21 05/13/21 23:59 23:59 23:59 23:59
--- NOTE | 2021-05-13 13:28 | PM.PNNEP ---
Progress Note: A&P Assessment and Plan (1) ESRD needing dialysis: Code(s): N18.6 - End stage renal disease; Z99.2 - Dependence on renal dialysis Status: Chronic Assessment and Plan: HD tomorrow and continue T/T/S dialysis schedule slowly titrate treatment to maximize clearance of uremic toxins follow electrolytes, volume status, and clearance (2) Alcoholic liver failure: Code(s): K70.40 - Alcoholic hepatic failure without coma Status: Acute Assessment and Plan: patient had not been taking lactulose prior to admission ammonia levels very high on presentation back on lactulose and ammonia levels are improved (3) Encephalopathy, hepatic: Code(s): K72.90 - Hepatic failure, unspecified without coma Status: Acute Assessment and Plan: ammonia level is better mentation appears to be improving as well (4) Jugular vein thrombosis, right: Code(s): I82.890 - Acute embolism and thrombosis of other specified veins Status: Acute Assessment and Plan: no anticoagulation indicated since he has bleeding/bruises holding on new HD catheter placement given issues with platelets/INR (5) Coagulopathy: Code(s): D68.9 - Coagulation defect, unspecified Status: Acute Assessment and Plan: due to liver disease getting FFP as needed (6) Thrombocytopenia: Code(s): D69.6 - Thrombocytopenia, unspecified Status: Acute Assessment and Plan: due to increased reticular endothelial uptake getting platelets as needed (7) Erythropoietin deficiency anemia: Code(s): D63.1 - Anemia in chronic kidney disease Status: Acute Assessment and Plan: continue Epogen with dialysis follow trend of H/H PRBC transfusion with HD todar (8) Renal osteodystrophy: Code(s): N25.0 - Renal osteodystrophy Status: Acute Assessment and Plan: follow calcium and phosphorus Will continue to follow. Subjective Date/time seen: 05/13/21 13:28 Tolerated dialysis yesterday without any issues or problems; appears relatively well at the time of my visit; no acute issues/complaints voiced; no events overnight or earlier this morning; no acute distress noted. Exam Narrative: General: male in NAD Heart: normal S1 and S2; no rub Lungs: clear to auscultation Abdomen: soft, nontender, nondistended, positive bowel sounds Extremities: no cyanosis or clubbing; no edema Skin: multiple ecchymoses present Objective Data Vital Signs Vital Signs: Vital Signs Temp Pulse Resp BP Pulse Ox 05/13/21 12:00 78 05/13/21 08:46 72 05/13/21 06:00 36.8 C 72 18 153/76 H 97 05/13/21 04:00 70 05/13/21 00:00 73 05/12/21 21:42 37.4 C 78 18 143/72 H 98 05/12/21 21:31 95 05/12/21 20:00 78 05/12/21 18:30 36.7 C 73 16 135/68 97 05/12/21 17:30 36.4 C 76 18 171/76 H 98 05/12/21 17:15 36.6 C 76 18 173/78 H 97 05/12/21 16:50 36.7 C 73 16 154/78 H 97 05/12/21 16:00 75 05/12/21 15:44 36.7 C 73 16 157/68 H 94 05/12/21 15:39 76 Intake/Output Intake/Output: Intake & Output 05/10/21 05/11/21 05/12/21 05/13/21 23:59 23:59 23:59 23:59 Intake Total 1480 1280 1300 810 Output Total 1480 2000 Balance 0 1280 -700 810 Meds/Results Medications: Active Medications Generic Name Dose Route Start Last Admin Trade Name Freq PRN Reason Stop Dose Admin Acetaminophen 650 mg 05/12/21 22:23 05/13/21 15:15 Acetaminophen 325 Mg Tablet PO 650 mg Q6H PRN Administration Mild Pain (1-3) or Fever Benzocaine 1 lozenge 05/13/21 12:40 05/13/21 15:17 Benzocaine/Menthol (*Bkc) 18 Ea Lozenge PO 1 lozenge PRN PRN Administration Sore Throat Calcium Carbonate 200 mg 05/06/21 10:41 Calcium Carbonate (Tums) 500 Mg (200 Mg Elemental) PO Q6H PRN Indigestion Folic Acid 1 mg 05/07/21 13:45
[2021-05-13] MEDS: BENZOCAINE/MENTHOL (*BKC) 18 EA LOZENGE 1 LOZENGE PO ×2 (15:17→21:51)
[2021-05-13] MEDS: MORPHINE SULFATE (*CRX) 2 MG/ML INJ 1 MG IV PUSH ×2 (17:24→21:50)
[2021-05-13] MEDS: MELATONIN 3 MG TABLET PO (20:37)
[2021-05-14] VITALS (26 sets, daily range): BP systolic 123–181; BP diastolic 47–98; PULSE 71–89; RESP 20; TEMP 36.5–37.3; O2SAT 96–97
[2021-05-14] MEDS: MORPHINE SULFATE (*CRX) 2 MG/ML INJ 1 MG IV PUSH ×3 (05:56→20:43)
[2021-05-14] MEDS: PANTOPRAZOLE SODIUM IV 40 MG VIAL IV PUSH (08:27)
[2021-05-14] MEDS: levETIRAcetam 500MG/NACL 100ML 500 MG/100 ML BAG 400 MG IVPB ×2 (08:27→20:44)
[2021-05-14] MEDS: LABETALOL HCL INJ 100 MG/20 ML VIAL 20 MG IV PUSH ×2 (08:28→14:23)
--- NOTE | 2021-05-14 10:41 | PC.NURSE ---
To dialysis per bed.
[2021-05-14 11:31] LABS: CRP 8.4 mg/dL (<1.0)
--- NOTE | 2021-05-14 11:50 | PCOTNOTE ---
Attempted to see pt for occupational therapy tx this AM, however, pt was out of room due to dialysis. Will continue per poc duration/frequency tomorrow.
[2021-05-14] MEDS: EPOETIN ALFA-EPBX 10,000 UNITS/ML VIAL 10000 UNITS IV PUSH (13:20)
--- NOTE | 2021-05-14 13:59 | P.PNNP_ITS ---
Progress Note: A&P Assessment and Plan (1) ESRD needing dialysis: Code(s): N18.6 - End stage renal disease; Z99.2 - Dependence on renal dialysis Status: Chronic Assessment and Plan: * HD today and continue T/T/S dialysis schedule * slowly titrate treatment to maximize clearance of uremic toxins * follow electrolytes, volume status, and clearance (2) Alcoholic liver failure: Code(s): K70.40 - Alcoholic hepatic failure without coma Status: Acute Assessment and Plan: * patient had not been taking lactulose prior to admission * ammonia levels very high on presentation * back on lactulose and ammonia levels are improved (3) Encephalopathy, hepatic: Code(s): K72.90 - Hepatic failure, unspecified without coma Status: Acute Assessment and Plan: * ammonia level is better * mentation appears to be improving as well (4) Jugular vein thrombosis, right: Code(s): I82.890 - Acute embolism and thrombosis of other specified veins Status: Acute Assessment and Plan: * no anticoagulation indicated since he has bleeding/bruises * holding on new HD catheter placement given issues with platelets/INR (5) Coagulopathy: Code(s): D68.9 - Coagulation defect, unspecified Status: Acute Assessment and Plan: * due to liver disease * getting FFP as needed (6) Thrombocytopenia: Code(s): D69.6 - Thrombocytopenia, unspecified Status: Acute Assessment and Plan: * due to increased reticular endothelial uptake * getting platelets as needed (7) Erythropoietin deficiency anemia: Code(s): D63.1 - Anemia in chronic kidney disease Status: Acute Assessment and Plan: * continue Epogen with dialysis * follow trend of H/H * PRBC transfusion with HD todar (8) Renal osteodystrophy: Code(s): N25.0 - Renal osteodystrophy Status: Acute Assessment and Plan: * follow calcium and phosphorus Will continue to follow. Subjective Date/time seen: 05/14/21 13:59 Tolerating dialysis at the time of my visit (seen on HD at ~ 1:50PM); tolerated treatment reasonably well; no issues/events overnight or earlier this morning; no other acute complaints voiced. Exam Narrative: General: male in NAD Heart: normal S1 and S2; no rub Lungs: clear to auscultation Abdomen: soft, nontender, nondistended, positive bowel sounds Extremities: no cyanosis or clubbing; no edema Skin: multiple ecchymoses noted Objective Data Vital Signs Vital Signs: Vital Signs Temp Pulse Resp BP Pulse Ox 05/14/21 13:45 83 175/94 H 05/14/21 13:30 83 179/91 H 05/14/21 13:15 85 180/98 H 05/14/21 13:03 84 172/91 H 05/14/21 12:30 79 131/76 05/14/21 12:15 79 145/77 H 05/14/21 12:00 84 176/92 H 05/14/21 11:45 78 145/83 H 05/14/21 11:15 78 161/89 H 05/14/21 11:00 73 156/86 H 05/14/21 10:45 76 174/94 H 05/14/21 10:30 37.2 C 72 20 179/76 H 05/14/21 10:29 75 162/87 H 05/14/21 08:28 74 05/14/21 08:25 77 05/14/21 08:23 169/77 H 05/14/21 05:54 36.9 C 77 20 177/72 H 97 05/14/21 04:00 76 05/14/21 00:00 71 05/13/21 23:19 95 05/13/21 22:00 36.6
--- NOTE | 2021-05-14 13:59 | PM.PNNEP ---
Progress Note: A&P Assessment and Plan (1) ESRD needing dialysis: Code(s): N18.6 - End stage renal disease; Z99.2 - Dependence on renal dialysis Status: Chronic Assessment and Plan: HD today and continue T/T/S dialysis schedule slowly titrate treatment to maximize clearance of uremic toxins follow electrolytes, volume status, and clearance (2) Alcoholic liver failure: Code(s): K70.40 - Alcoholic hepatic failure without coma Status: Acute Assessment and Plan: patient had not been taking lactulose prior to admission ammonia levels very high on presentation back on lactulose and ammonia levels are improved (3) Encephalopathy, hepatic: Code(s): K72.90 - Hepatic failure, unspecified without coma Status: Acute Assessment and Plan: ammonia level is better mentation appears to be improving as well (4) Jugular vein thrombosis, right: Code(s): I82.890 - Acute embolism and thrombosis of other specified veins Status: Acute Assessment and Plan: no anticoagulation indicated since he has bleeding/bruises holding on new HD catheter placement given issues with platelets/INR (5) Coagulopathy: Code(s): D68.9 - Coagulation defect, unspecified Status: Acute Assessment and Plan: due to liver disease getting FFP as needed (6) Thrombocytopenia: Code(s): D69.6 - Thrombocytopenia, unspecified Status: Acute Assessment and Plan: due to increased reticular endothelial uptake getting platelets as needed (7) Erythropoietin deficiency anemia: Code(s): D63.1 - Anemia in chronic kidney disease Status: Acute Assessment and Plan: continue Epogen with dialysis follow trend of H/H PRBC transfusion with HD todar (8) Renal osteodystrophy: Code(s): N25.0 - Renal osteodystrophy Status: Acute Assessment and Plan: follow calcium and phosphorus Will continue to follow. Subjective Date/time seen: 05/14/21 13:59 Tolerating dialysis at the time of my visit (seen on HD at ~ 1:50PM); tolerated treatment reasonably well; no issues/events overnight or earlier this morning; no other acute complaints voiced. Exam Narrative: General: male in NAD Heart: normal S1 and S2; no rub Lungs: clear to auscultation Abdomen: soft, nontender, nondistended, positive bowel sounds Extremities: no cyanosis or clubbing; no edema Skin: multiple ecchymoses noted Objective Data Vital Signs Vital Signs: Vital Signs Temp Pulse Resp BP Pulse Ox 05/14/21 13:45 83 175/94 H 05/14/21 13:30 83 179/91 H 05/14/21 13:15 85 180/98 H 05/14/21 13:03 84 172/91 H 05/14/21 12:30 79 131/76 05/14/21 12:15 79 145/77 H 05/14/21 12:00 84 176/92 H 05/14/21 11:45 78 145/83 H 05/14/21 11:15 78 161/89 H 05/14/21 11:00 73 156/86 H 05/14/21 10:45 76 174/94 H 05/14/21 10:30 37.2 C 72 20 179/76 H 05/14/21 10:29 75 162/87 H 05/14/21 08:28 74 05/14/21 08:25 77 05/14/21 08:23 169/77 H 05/14/21 05:54 36.9 C 77 20 177/72 H 97 05/14/21 04:00 76 05/14/21 00:00 71 05/13/21 23:19 95 05/13/21 22:00 36.6 C 75 20 161/91 H 98 05/13/21 20:00 75 05/13/21 16:00 77 Intake/Output Intake/Output: Intake & Output 05/11/21 05/12/21 05/13/21 05/14/21 23:59 23:59 23:59 23:59 Intake Total 1280 1300 1260 360 Output Total 2000 100 Balance 1280 -700 1160 360 Meds/Results Medications: Active Medications Generic Name Dose Route Start Last Admin Trade Name Freq PRN Reason Stop Dose Admin Acetaminophen 650 mg 05/12/21 22:23 05/13/21 15:15 Acetaminophen 325 Mg Tablet PO 650 mg Q6H PRN Administration Mild Pain (1-3) or Fever Benzocaine 1 lozenge 05/13/21 12:40 05/13/21 21:51 Benzocaine/Menthol (*Bkc) 18 Ea Lozenge PO 1 lozenge PRN PRN Admini
--- NOTE | 2021-05-14 15:06 | PC.NURSE ---
Return to room from dialysis at 1420.
--- NOTE | 2021-05-14 15:28 | PM.IMPN ---
Progress Note: A&P Assessment and Plan (1) Acute respiratory failure: Code(s): J96.00 - Acute respiratory failure, unspecified whether with hypoxia or hypercapnia Status: Acute Assessment and Plan: Resolved acute Respiratory failure secondary to status epilepticus. Patient was previously intubated for protection of airway secondary to seizure activity. He was successfully extubated on 05/09/2021 -currently on room air with good O2 sats -will increase activity, encourage incentive spirometry. -PT OT Passed speech and swallow evaluation. Tolerating diet. 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 Etiology of that is not fully clear Head CT was negative He has not had any additional episode of seizures EEG was done 05/09/2021, no evidence of ongoing seizure activity. Neurology is following the patient. We will continue Keppra Patient is awake, alert, follows simple commands in all extremities. Patient was informed to stop driving until he is seizure-free for 6 month, per regulations in [place]. (3) Encephalopathy acute: Code(s): G93.40 - Encephalopathy, unspecified Status: Acute Assessment and Plan: Resolved Patient de santiago encephalopathic initially This could be postictal. -ammonia levels have normalized Head CT done post status epilepticus and intubation was unremarkable EEG done, report reviewed in neurology progress total from 05/10/2021. Patient educated about the need to remain sober in order to be considered for a liver transplant. Patient was evaluated for liver transplant as [facility]. His file was closed due to his ongoing alcoholism (4) Tongue laceration: Code(s): S01.512A - Laceration without foreign body of oral cavity, initial encounter Status: Acute Assessment and Plan: Patient bit his tongue during seizure, patient bled intermittently from his tongue laceration. Today's hemoglobin has dropped to 6.9. However - he is comfortable and denies any symptoms. Patient will receive blood transfusion during dialysis. (5) Anemia: Code(s): D64.9 - Anemia, unspecified Status: Acute Assessment and Plan: Severe anemia is likely multifactorial, in the setting of end-stage renal disease and previous tongue laceration with profuse bleeding. Patient was previously transfused 2 units PRBC and 2 units platelets on 05/07. He also received FFP on 05/06. Hemoglobin has drifted down to 6.9. He has received platelets on 05/11/2021. He will receive 2 units PRBC in a.m. He will receive platelets 05/12/2021. Continue erythropoiesis stimulating agents with hemodialysis. (6) ESRD needing dialysis: Code(s): N18.6 - End stage renal disease; Z99.2 - Dependence on renal dialysis Status: Chronic Assessment and Plan: noncompliant and missed dialysis for 3 weeks. He presented not in volume overload but significantly uremic and hyperkalemic hyperkalemia was temporally treated with medications in the ER and improved Patient was then dialyzed 05/06 was continued on dialysis since -hyperkalemia has resolved. Nephrology is following and continuation of dialysis as per nephrology service. -continue hemodialysis on a Sunday and Sunday per his regular schedule. Patient was educated about importance of compliance to his dialysis to avoid additional complications. Referred to liver and kidney Transplant evaluation upon discharge as an outpatient. (7) Hyperkalemia: Code(s): E87.5 - Hyperkalemia Status: Acute Assessment and Plan: Resolved after initial treatment with medications and later dialysis. Continue low-potassium diet. (8) Hematoma: Code(s): T14.8XXA - Other injury of unspecified body region, initial encounter Status: Acute
--- NOTE | 2021-05-14 15:43 | PCPTNOTE ---
Attempt made for physical therapy, per RN and pt, pt just returned from dialysis and was going to eat. Continue per POC tomorrow.
[2021-05-14] MEDS: LACTULOSE 20 GM/30 ML UDC PO (18:12)
--- NOTE | 2021-05-14 19:48 | WPDCN ---
Assessment and Plan Assessment and plan (1) Cellulitis and abscess of hand: Code(s): L03.119 - Cellulitis of unspecified part of limb; L02.519 - Cutaneous abscess of unspecified hand Status: Acute Assessment and Plan: Able to aspirate .5 ml of creamy medrano pus. Sent for aerobic cultures. Pt is scheduled for I&D in the OR at 0900 tomorrow. HPI Data of Consult Date/Time: 05/14/21 19:48 Requesting Physician: Leona López DO Primary Care Provider: BECKIE,FLAQUITA Hopper Consult Narrative Narrative: Jj Cuello is a 55 year old male admitted 05/06 with some mental status changes. Available history indicated a gent with ESRD having missed several dialysis treatments. 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 He recalls falling at his office several days prior to his first visit to the ED here. He has a large left zygomatic hematoma. He is sketchy on details of his history. It appears that the swollen left wrist has evolved during this admission to the point that his left hand is puffy and there are a couple of prominences on the dorsal and radial wrist that are now suggestive of abscesses. There is general dorsal erythema,not including the fingers. There are several small scrapes and scabs. CTA reveals left dorsal wrist superficial abscess. Plain films, Venous Doppler are normal. Arterial Doppler pulses in radial and ulnar arteries could not be obtained bilaterally. Skin turgor and color appears normal away from the left dorsal hand/wrist. Fingers and wrist motion is intact but limited by edema. No wounds on palmar hand. Blood cultures are pending. WBC 5-9. CRP slightly elevated. [facility] Past Medical History Medical History Alcoholic liver failure Cirrhosis Coagulopathy Encephalopathy, hepatic Erythropoietin deficiency anemia ESRD needing dialysis Renal osteodystrophy Thrombocytopenia Social History Social History Smoking status: Never smoker Alcohol intake: current Drinks per week: 3 Substance use: never Spiritual care concerns: No Meds Home Medications and Allergies Home Medications Medication Instructions Recorded Confirmed Type amlodipine 5 mg PO DAILY 05/06/21 05/09/21 History avatrombopag [Doptelet (15 tab mg PO 05/06/21 History pack)] ciprofloxacin HCl 250 mg PO DAILY 05/06/21 05/09/21 History halobetasol propionate 1 applic TOPICAL BID 05/06/21 05/09/21 History lisinopril 20 mg PO DAILY 05/06/21 05/09/21 History nadolol 20 mg PO DAILY 05/06/21 05/09/21 History pantoprazole 40 mg PO DAILY 05/06/21 05/09/21 History peg 3350-electrolytes 05/06/21 History sevelamer carbonate 1,600 mg PO TIDWMEAL 05/06/21 05/09/21 History sildenafil 05/06/21 History trazodone 50 mg PO HS PRN 05/06/21 05/09/21 History Allergies Allergy/AdvReac Type Severity Reaction Status Date / Time No Known Allergies Allergy Unknown Verified 01/22/19 15:29 Vital Signs Vital Signs - 24 hr 05/13/21 20:00 05/13/21 22:00 05/13/21 23:19 Temperature 98 F Pulse Rate 75 75 Respiratory Rate 20 Blood Pressure 161/91 H Pulse Oximetry 98 95 05/14/21 00:00 05/14/21 04:00 05/14/21 05:54 Temperature 98.5 F Pulse Rate 71 76 77 Respiratory Rate 20 Blood Pressure 177/72 H Pulse Oximetry 97 05/14/21 08:23 05/14/21 08:25 05/14/21 08:28 Temperature Pulse Rate 77 74 Respiratory Rate Blood Pressure 169/77 H Pulse Oximetry 05/14/21 10:29 05/14/21 10:30 05/14/21 10:45 Temperature 98.9 F Pulse Rate 75 72 76 Respiratory Rate 20 Blood Pressure 162/87 H 179/76 H 174/94 H Pulse Oximetry 05/14/21 11:00 05/14/21 11:15 05/14/21 11:45 Temperature Pulse Rate 73 78 78 Respiratory Rate Blood Pressure 156/86 H 161/89 H 145/83 H Pulse Oximetry 05/14/21 12:00 05/14/21 12:15 05/14/21 12:30 Temperature Pulse Rate 84 79 79
[2021-05-14] MEDS: MELATONIN 3 MG TABLET PO (20:42)
[2021-05-15] VITALS (18 sets, daily range): BP systolic 129–171; BP diastolic 66–92; PULSE 71–84; RESP 14–20; TEMP 36.3–37.1; O2SAT 97–100
[2021-05-15] MEDS: MORPHINE SULFATE (*CRX) 2 MG/ML INJ 1 MG IV PUSH ×3 (01:09→18:10)
[2021-05-15] MEDS: BENZOCAINE/MENTHOL (*BKC) 18 EA LOZENGE 1 LOZENGE PO ×3 (05:47→18:12)
[2021-05-15] MEDS: levETIRAcetam 500MG/NACL 100ML 500 MG/100 ML BAG 400 MG IVPB (08:03)
--- NOTE | 2021-05-15 08:28 | WPDANESEPPF ---
Anes - Initial Pre Proc Eval Procedure: Operation Date: 05/15/21 09:30 Proposed Procedures p I&D OF ABCESS LEFT DORSAL WRIST(Left) - Lonnie Ta MD Date/Time: 05/15/21 08:28 Surgeon: Leona López DO Pre Op Diagnosis: ABSCESS LEFT DORSAL WRIST Patient Data Age: 55 Gender: M Height: 1.75 m Weight: 87.5 kg Last Vital Signs Temp 36.4 C 05/15/21 06:00 Pulse 77 05/15/21 06:00 Resp 16 05/15/21 06:00 BP 147/68 H 05/15/21 06:00 Pulse Ox 97 05/15/21 06:00 Allergies Allergy/AdvReac Type Severity Reaction Status Date / Time No Known Allergies Allergy Unknown Verified 01/22/19 15:29 Home Medications Medication Instructions Recorded Confirmed Type amlodipine 5 mg PO DAILY 05/06/21 05/09/21 History avatrombopag [Doptelet (15 tab mg PO 05/06/21 History pack)] ciprofloxacin HCl 250 mg PO DAILY 05/06/21 05/09/21 History halobetasol propionate 1 applic TOPICAL BID 05/06/21 05/09/21 History lisinopril 20 mg PO DAILY 05/06/21 05/09/21 History nadolol 20 mg PO DAILY 05/06/21 05/09/21 History pantoprazole 40 mg PO DAILY 05/06/21 05/09/21 History peg 3350-electrolytes 05/06/21 History sevelamer carbonate 1,600 mg PO TIDWMEAL 05/06/21 05/09/21 History sildenafil 05/06/21 History trazodone 50 mg PO HS PRN 05/06/21 05/09/21 History Laboratory Tests 05/14/21 10:52 C-Reactive Protein 8.4 mg/dL H mg/dL (<1.0) Patient hx anesthesia problems: none Family hx anesthesia problems: none Results Review: All pre-operative results and documents have been reviewed as part of the pre-operative evaluation. [facility] Past Medical History Medical History Alcoholic liver failure Cirrhosis Coagulopathy Encephalopathy, hepatic Erythropoietin deficiency anemia ESRD needing dialysis Renal osteodystrophy Thrombocytopenia Social History Social History Smoking status: Never smoker Alcohol intake: current Drinks per week: 3 Substance use: never Spiritual care concerns: No Anes - Eval Final PreProcedure Day of Procedure 05/15/21 08:28 Patient weight: overweight Heart: regular rate and rhythm Lungs: clear to auscultation and normal air movement Airway: Mallampati scale class III Neurological: alert and oriented Last oral intake: >/= 8 hours ASA classification: IV Emergent: yes Anesthetic plan: proceed Anesthesia type and monitoring: general GIVS and standard monitoring Results Review: All pre-operative results and documents have been reviewed as part of the pre-operative evaluation. Informed Consent: The patient's anesthetic plan and its attendant risks and benefits were discussed with the patient/family/POA. Questions were solicited and answers provided to the satisfaction of the patient/family/POA.
--- NOTE | 2021-05-15 09:16 | WPDHPUPDATE1 ---
History and Physical Update Update Date/Time: 05/15/21 09:16 History and Physical has been reviewed, including an updated exam of the patient. There are NO changes in the patient's condition. Risks, benefits, and alternatives have been discussed and questions answered. Patient agrees to proceed with procedure.
[2021-05-15] MEDS: LACTATED RINGERS 1,000 ML 30 ML IV CONT (10:06)
--- NOTE | 2021-05-15 10:30 | SUR.PHASEI ---
1030- Obtained orders from Dr. Cervantes for fentanyl 25MCG IVP q2-3 mintues in PACU with max dosing of 200MCG for pain.
[2021-05-15] MEDS: fentaNYL CITRATE INJ (*CRX) 100 MCG/2 ML VIAL 25 MCG IV PUSH ×3 (10:34→10:43)
--- NOTE | 2021-05-15 10:39 | P.OP_ITS ---
Procedure Note - Detailed Date of Procedure 05/15/21 Pre-op Diagnosis ABSCESS LEFT DORSAL WRIST Post-op Diagnosis same Procedure Performed Incision and drainage of abscess of the left dorsal wrist Surgeon Lonnie Ta MD Analytical Lab Analyst Kim Anesthesia MAC Indications Subcutaneous Abscess Findings Subcutaneous abscess Description of Procedure The site was marked on the patient's left dorsal wrist in the holding area. He was taken to the operating room where he was placed supine on the operating table. A time-out was held and confirmed. He was given general IV sedation. The extremity was prepped and draped in usual fashion. A marking was made for the incision to include the 2 prominent fluid containing masses.. The area was locally infiltrated in the subcutaneous tissue at some distance from the abscess. The tourniquet was inflated to 250 mmHg. The incision was made to unroof the abscesses and explore the subcutaneous region. Several neurovascular bundles were identified traversing the area and these were preserved. The abscess did not appear to penetrate the wrist capsule or musculotendinous structures. The pus was drained the wound margins were trimmed in the areas for the most purulence lay. This area was copiously irrigated with saline. A 4 branch strip of 1 in iodoform was left in the wound. A bulky bandage was applied the tourniquet was released and discharged from the operating room stable condition. A culture is already pending from yesterday Estimated Blood Loss 20 Tourniquet Time 15 Urine Output 75 Drains No Packing Yes Pathology none sent Complications No immediate complications Condition stable Disposition PACU
--- NOTE | 2021-05-15 11:05 | SUR.PHASEI ---
1105- Call to DIVINE Grier to give report on patient. RN unavailable at this time for report.
[2021-05-15] MEDS: nadoloL 20 MG TABLET PO (13:14)
[2021-05-15] MEDS: LACTULOSE 20 GM/30 ML UDC PO ×2 (13:15→17:50)
[2021-05-15] MEDS: THIAMINE HCL 100 MG TABLET PO (13:15)
[2021-05-15] MEDS: FOLIC ACID 1 MG TABLET PO (13:15)
--- NOTE | 2021-05-15 13:48 | P.PNNP_ITS ---
Progress Note: A&P Assessment and Plan (1) ESRD needing dialysis: Code(s): N18.6 - End stage renal disease; Z99.2 - Dependence on renal dialysis Status: Chronic Assessment and Plan: * HD yesterday and continue T/T/S dialysis schedule * slowly titrate treatment to maximize clearance of uremic toxins * follow electrolytes, volume status, and clearance (2) Alcoholic liver failure: Code(s): K70.40 - Alcoholic hepatic failure without coma Status: Acute Assessment and Plan: * patient had not been taking lactulose prior to admission * ammonia levels very high on presentation * back on lactulose and ammonia levels are improved (3) Cutaneous abscess of left wrist: Code(s): L02.414 - Cutaneous abscess of left upper limb Status: Acute Assessment and Plan: * Plastic Surgery following * s/p I&D in OR today * follow culture results * on antibiotics (4) Encephalopathy, hepatic: Code(s): K72.90 - Hepatic failure, unspecified without coma Status: Acute Assessment and Plan: * ammonia level is better * mentation appears to be improving as well (5) Jugular vein thrombosis, right: Code(s): I82.890 - Acute embolism and thrombosis of other specified veins Status: Acute Assessment and Plan: * no anticoagulation indicated since he has bleeding/bruises * holding on new HD catheter placement given issues with platelets/INR (6) Coagulopathy: Code(s): D68.9 - Coagulation defect, unspecified Status: Acute Assessment and Plan: * due to liver disease * getting FFP as needed (7) Thrombocytopenia: Code(s): D69.6 - Thrombocytopenia, unspecified Status: Acute Assessment and Plan: * due to increased reticular endothelial uptake * getting platelets as needed (8) Erythropoietin deficiency anemia: Code(s): D63.1 - Anemia in chronic kidney disease Status: Acute Assessment and Plan: * continue Epogen with dialysis * follow trend of H/H * PRBC transfusion with HD todar (9) Renal osteodystrophy: Code(s): N25.0 - Renal osteodystrophy Status: Acute Assessment and Plan: * follow calcium and phosphorus Will continue to follow. Subjective Date/time seen: 05/15/21 13:48 Tolerated dialysis treatment yesterday without any issue or problems; noted to have early left wrist cellultis yesterday so started on antibiotics; Plastic Surgery consulted and found to have two abscess which was confirmed by CT scan; taken to OR this AM for I&D of these abscess and tolerated procedure well. Exam Narrative: General: male in NAD Heart: normal S1 and S2; no rub Lungs: clear to auscultation Abdomen: soft, nontender, nondistended, positive bowel sounds Extremities: no cyanosis or clubbing; no edema Skin: multiple ecchymoses noted Objective Data Vital Signs Vital Signs: Vital Signs Temp Pulse Resp BP Pulse Ox 05/15/21 13:15 37.1 C 81 18 171/72 H 100 05/15/21 13:14 71 05/15/21 12:15 36.7 C 78 18 152/79 H 98 05/15/21 11:45 36.4 C 76 18 140/75 98 05/15/21 11:30 36.6 C 74 16 158/82 H 98 05/15/21 11:15 74 14 153/80 H 97 05/15/21 11:00 75 18 153/86 H 98 05/15/21 10:50 76 16 156/84 H 97 05/15/21 10:35 76 16 148/80 H 98
--- NOTE | 2021-05-15 13:48 | PM.PNNEP ---
Progress Note: A&P Assessment and Plan (1) ESRD needing dialysis: Code(s): N18.6 - End stage renal disease; Z99.2 - Dependence on renal dialysis Status: Chronic Assessment and Plan: HD yesterday and continue T/T/S dialysis schedule slowly titrate treatment to maximize clearance of uremic toxins follow electrolytes, volume status, and clearance (2) Alcoholic liver failure: Code(s): K70.40 - Alcoholic hepatic failure without coma Status: Acute Assessment and Plan: patient had not been taking lactulose prior to admission ammonia levels very high on presentation back on lactulose and ammonia levels are improved (3) Cutaneous abscess of left wrist: Code(s): L02.414 - Cutaneous abscess of left upper limb Status: Acute Assessment and Plan: Plastic Surgery following s/p I&D in OR today follow culture results on antibiotics (4) Encephalopathy, hepatic: Code(s): K72.90 - Hepatic failure, unspecified without coma Status: Acute Assessment and Plan: ammonia level is better mentation appears to be improving as well (5) Jugular vein thrombosis, right: Code(s): I82.890 - Acute embolism and thrombosis of other specified veins Status: Acute Assessment and Plan: no anticoagulation indicated since he has bleeding/bruises holding on new HD catheter placement given issues with platelets/INR (6) Coagulopathy: Code(s): D68.9 - Coagulation defect, unspecified Status: Acute Assessment and Plan: due to liver disease getting FFP as needed (7) Thrombocytopenia: Code(s): D69.6 - Thrombocytopenia, unspecified Status: Acute Assessment and Plan: due to increased reticular endothelial uptake getting platelets as needed (8) Erythropoietin deficiency anemia: Code(s): D63.1 - Anemia in chronic kidney disease Status: Acute Assessment and Plan: continue Epogen with dialysis follow trend of H/H PRBC transfusion with HD todar (9) Renal osteodystrophy: Code(s): N25.0 - Renal osteodystrophy Status: Acute Assessment and Plan: follow calcium and phosphorus Will continue to follow. Subjective Date/time seen: 05/15/21 13:48 Tolerated dialysis treatment yesterday without any issue or problems; noted to have early left wrist cellultis yesterday so started on antibiotics; Plastic Surgery consulted and found to have two abscess which was confirmed by CT scan; taken to OR this AM for I&D of these abscess and tolerated procedure well. Exam Narrative: General: male in NAD Heart: normal S1 and S2; no rub Lungs: clear to auscultation Abdomen: soft, nontender, nondistended, positive bowel sounds Extremities: no cyanosis or clubbing; no edema Skin: multiple ecchymoses noted Objective Data Vital Signs Vital Signs: Vital Signs Temp Pulse Resp BP Pulse Ox 05/15/21 13:15 37.1 C 81 18 171/72 H 100 05/15/21 13:14 71 05/15/21 12:15 36.7 C 78 18 152/79 H 98 05/15/21 11:45 36.4 C 76 18 140/75 98 05/15/21 11:30 36.6 C 74 16 158/82 H 98 05/15/21 11:15 74 14 153/80 H 97 05/15/21 11:00 75 18 153/86 H 98 05/15/21 10:50 76 16 156/84 H 97 05/15/21 10:35 76 16 148/80 H 98 05/15/21 10:23 77 16 133/92 H 98 05/15/21 10:15 76 16 129/82 100 05/15/21 10:06 36.9 C 77 18 135/74 99 05/15/21 08:00 80 05/15/21 06:00 36.4 C 77 16 147/68 H 97 05/15/21 04:00 81 05/15/21 00:00 84 05/14/21 22:00 37.3 C 84 20 123/47 L 96 05/14/21 20:00 89 05/14/21 16:00 85 Intake/Output Intake/Output: Intake & Output 05/12/21 05/13/21 05/14/21 05/15/21 23:59 23:59 23:59 23:59 Intake Total 1300 1260 1500 540 Output Total 2000 100 2000 150 Balance -700 1160 -500 390 Meds/Results Medications: Active Medications Generic Name Dose Route Start Las
--- NOTE | 2021-05-15 14:07 | PCOTNOTE ---
Attempted to see pt 4x throughout the day for occupation therapy tx. At 1st and 2nd attempt pt was out of room due to procedure, at 3rd attempt pt was eating lunch and stated for therapy to come back later. At 4th attempt, pt was with visitor and RN and states that he did not want to do therapy today. Pt was educated on the purpose and benefits of continued therapy to increase independence with daily occupations. Will continue per poc duration/frequency tomorrow.
--- NOTE | 2021-05-15 14:20 | PM.IMPN ---
Progress Note: A&P Assessment and Plan (1) Acute respiratory failure: Code(s): J96.00 - Acute respiratory failure, unspecified whether with hypoxia or hypercapnia Status: Acute Assessment and Plan: Resolved acute Respiratory failure secondary to status epilepticus. Patient was previously intubated for protection of airway secondary to seizure activity. He was successfully extubated on 05/09/2021 -currently on room air with good O2 sats -encourage activity. Out of bed to chair. Encourage incentive spirometry. -PT OT follow-up Passed speech and swallow evaluation. Tolerating diet. 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 Etiology of that is not fully clear Head CT was negative He has not had any additional episode of seizures EEG was done 05/09/2021, no evidence of ongoing seizure activity. Neurology is following the patient. We will continue Keppra Patient is awake, alert, follows simple commands in all extremities. Patient was informed to stop driving until he is seizure-free for 6 month, per regulations in [place]. (3) Encephalopathy acute: Code(s): G93.40 - Encephalopathy, unspecified Status: Acute Assessment and Plan: Resolved He had significant altered mental status at the time of presentation which seems to be postictal. -ammonia levels have normalized Head CT done post status epilepticus and intubation was unremarkable EEG done, report reviewed in neurology progress note from 05/10/2021. Patient educated about the need to remain sober in order to be considered for a liver transplant. Patient was evaluated for liver transplant as [facility]. His file was closed due to his ongoing alcoholism (4) Tongue laceration: Code(s): S01.512A - Laceration without foreign body of oral cavity, initial encounter Status: Acute Assessment and Plan: Patient bit his tongue during seizure, patient bled intermittently from his tongue laceration. His hemoglobin dropped to 6.9 on 05/11. He received PRBC transfusion during dialysis with improvement in his hemoglobin. (5) Anemia: Code(s): D64.9 - Anemia, unspecified Status: Acute Assessment and Plan: Severe anemia is likely multifactorial, in the setting of end-stage renal disease and previous tongue laceration with profuse bleeding. Patient was previously transfused 2 units PRBC and 2 units platelets on 05/07. He also received FFP on 05/06. Hemoglobin has drifted down to 6.9. He has received platelets and PRBC on 05/11/2021. He will receive platelets 05/12/2021. Continue erythropoiesis stimulating agents with hemodialysis. (6) ESRD needing dialysis: Code(s): N18.6 - End stage renal disease; Z99.2 - Dependence on renal dialysis Status: Chronic Assessment and Plan: noncompliant and missed dialysis for 3 weeks. He presented not in volume overload but significantly uremic and hyperkalemic hyperkalemia was temporally treated with medications in the ER and improved Patient was then dialyzed 05/06 was continued on dialysis since -hyperkalemia has resolved. Nephrology is following and continuation of dialysis as per nephrology service. -continue hemodialysis on a Sunday and Sunday per his regular schedule. Patient was educated about importance of compliance to his dialysis to avoid additional complications. Referred to liver and kidney Transplant evaluation upon discharge as an outpatient. (7) Hyperkalemia: Code(s): E87.5 - Hyperkalemia Status: Acute Assessment and Plan: Resolved after initial treatment with medications and later dialysis. Continue low-potassium diet. (8) Hematoma: Code(s): T14.8XXA - Other injury of unspecified body region, initial encounter Status: Ac
--- NOTE | 2021-05-15 15:41 | PCPTNOTE ---
Attempted to see for physical therapy. Pts brother present and declined treatment stating that pt just fell asleep
[2021-05-15] MEDS: levETIRAcetam 500 MG TABLET PO (20:42)
[2021-05-15] MEDS: MELATONIN 3 MG TABLET PO (20:43)
[2021-05-16 06:00] VITALS: BP 175/76; PULSE 78; RESP 18; TEMP 36.3; O2SAT 100
[2021-05-16 06:53] LABS: Basophils Percent Auto 0.2 % (0.2-1.2); Eosinophils Absolute Auto 0.1 K/mm3 (0-0.3); Eosinophils Percent Auto 2.9 % (0-4.4); Hematocrit 28.8 % (42.0-52.0); Hemoglobin 9.3 g/dL (14.0-18.0); Immature Granulocyte Absolute 0.02 K/mm3 (0.00-0.031); Immature Granulocyte Percent A 0.4 % (0-0.5); Immature Platelet Fraction Pct 4.7 % (0.9-11.2); Lymphocytes Absolute Auto 0.48 K/mm3 (0.9-3.2); Lymphocytes Percent Auto 10.1 % (18.3-44.2); Mean Corpuscular HGB Conc 32.3 g/dl (32-36); Mean Corpuscular Hemoglobin 30.7 pg (26-34); Mean Platelet Volume 11.3 fl (7.4-10.4); Monocytes Absolute Auto 0.4 K/mm3 (0.1-0.6); Monocytes Percent Auto 7.6 % (2.6-8.5); Neutrophils Absolute Auto 3.8 K/mm3 (1.3-6.7); Neutrophils Percent Auto 78.8 % (45.5-73.1); Platelet Count Result 35 k/mm3 (150-375); Red Blood Count 3.03 M/mm3 (4.6-6.20); Red Cell Distribution Width 15.9 % (11.5-14.5); White Blood Count 4.8 K/mm3 (4.5-10.0)
[2021-05-16 07:02] LABS: Anion Gap 14 mmol/L (8-16); Blood Urea Nitrogen 53 mg/dL (9-20); Calcium 8.6 mg/dL (8.4-10.2); Carbon Dioxide 24 mmol/L (22-30); Chloride 95 mmol/L (98-107); Estimated CRCL calculation 11 ml/min; Estimated Glomerular Filt Rate 8; Glucose 131 mg/dL (65-110); Magnesium 1.7 mg/dL (1.6-2.3); Phosphorus 5.5 mg/dL (2.5-4.5); Potassium 4.2 mmol/L (3.4-5.0); Sodium 133 mmol/L (137-145)
[2021-05-16 07:14] LABS: Vancomycin Random 13.1 ug/mL (10-20)
[2021-05-16 08:24] VITALS: PULSE 78
[2021-05-16] MEDS: THIAMINE HCL 100 MG TABLET PO (08:24)
[2021-05-16] MEDS: nadoloL 20 MG TABLET PO (08:24)
[2021-05-16] MEDS: FOLIC ACID 1 MG TABLET PO (08:25)
[2021-05-16] MEDS: levETIRAcetam 500 MG TABLET PO ×2 (08:25→21:26)
[2021-05-16] MEDS: LACTULOSE 20 GM/30 ML UDC PO ×3 (08:25→17:40)
--- NOTE | 2021-05-16 10:53 | PCNWS ---
Weekly nutritional screen. Patient is tolerating current diet with adequate intake. No weight loss reported. No nutritional needs at this time.
--- NOTE | 2021-05-16 13:15 | PCPTNOTE ---
Attempted to see pt for PT session this afternoon. Pt states I already did that this afternoon. Therapist explained that was OT and the difference between PT and OT. Pt declined reporting he is too tired and did not sleep much last night. Pt was given education on benefits of PT and importance of participation. Pt continued to decline and asked that therapist return later to see if he would be willing then. Will check back later as schedule allows.
--- NOTE | 2021-05-16 13:39 | PCNSR ---
On 05/16/21, the student, Xiomara Mesa, provided care and completed [facility] documentation on this patient. I have reviewed the student's documentation and agree with the findings.
[2021-05-16] MEDS: BENZOCAINE/MENTHOL (*BKC) 18 EA LOZENGE 1 LOZENGE PO ×2 (14:59→21:29)
[2021-05-16] MEDS: amLODIPine BESYLATE 5 MG TABLET PO (15:00)
[2021-05-16] MEDS: lisinopriL 20 MG TABLET PO (15:00)
--- NOTE | 2021-05-16 15:02 | PCPTNOTE ---
Returned to attempt to see pt for PT session per pt request. Pt continued to decline participation. Pt was again offered encouragement and education on benefits of therapy in order to return to prior level of function in hopes of returning home. However, pt continued to decline. Reached out to CM to update on how pt did in morning OT session and recommendation for rehab before home.
[2021-05-16 15:21] VITALS: BP 137/72; PULSE 78; RESP 18; TEMP 37; O2SAT 100
--- NOTE | 2021-05-16 15:22 | PM.PNNEP ---
Progress Note: A&P Assessment and Plan (1) ESRD needing dialysis: Code(s): N18.6 - End stage renal disease; Z99.2 - Dependence on renal dialysis Status: Chronic Assessment and Plan: HD tomorrow and continue T/T/S dialysis schedule follow electrolytes, volume status, and clearance (2) Alcoholic liver failure: Code(s): K70.40 - Alcoholic hepatic failure without coma Status: Acute Assessment and Plan: patient had not been taking lactulose prior to admission ammonia levels very high on presentation back on lactulose and ammonia levels are improved (3) Cutaneous abscess of left wrist: Code(s): L02.414 - Cutaneous abscess of left upper limb Status: Acute Assessment and Plan: Plastic Surgery following s/p I&D in OR (on 05/15/21) follow culture results on antibiotics (4) Encephalopathy, hepatic: Code(s): K72.90 - Hepatic failure, unspecified without coma Status: Acute Assessment and Plan: ammonia level is better mentation appears to be improving as well (5) Jugular vein thrombosis, right: Code(s): I82.890 - Acute embolism and thrombosis of other specified veins Status: Acute Assessment and Plan: no anticoagulation indicated since he has bleeding/bruises holding on new HD catheter placement given issues with platelets/INR (6) Coagulopathy: Code(s): D68.9 - Coagulation defect, unspecified Status: Acute Assessment and Plan: due to liver disease getting FFP as needed (7) Thrombocytopenia: Code(s): D69.6 - Thrombocytopenia, unspecified Status: Acute Assessment and Plan: due to increased reticular endothelial uptake getting platelets as needed (8) Erythropoietin deficiency anemia: Code(s): D63.1 - Anemia in chronic kidney disease Status: Acute Assessment and Plan: continue Epogen with dialysis follow trend of H/H PRBC transfusion with HD PRN (9) Renal osteodystrophy: Code(s): N25.0 - Renal osteodystrophy Status: Acute Assessment and Plan: follow calcium and phosphorus Will continue to follow. Subjective Date/time seen: 05/16/21 15:22 Overall, appears to be doing better; tolerated I&D yesterday AM with regard to left hand/wrist abscess; no other acute issues or problems at this time; no events overnight or earlier this morning. Exam Narrative: General: male in NAD Heart: normal S1 and S2; no rub Lungs: clear to auscultation Abdomen: soft, nontender, nondistended, positive bowel sounds Extremities: no cyanosis or clubbing; no edema; left hand with dressings in place Skin: multiple ecchymoses present Objective Data Vital Signs Vital Signs: Vital Signs Temp Pulse Resp BP Pulse Ox 05/16/21 15:20 37.0 C 78 18 137/72 100 05/16/21 08:24 78 05/16/21 06:00 36.3 C L 78 18 175/76 H 100 05/15/21 22:00 36.3 C L 77 18 160/83 H 100 Intake/Output Intake/Output: Intake & Output 05/13/21 05/14/21 05/15/21 05/16/21 23:59 23:59 23:59 23:59 Intake Total 1260 1500 1130 1800 Output Total 100 2000 150 100 Balance 1160 -601 293 3360 Meds/Results Medications: Active Medications Generic Name Dose Route Start Last Admin Trade Name Freq PRN Reason Stop Dose Admin Acetaminophen 650 mg 05/12/21 22:23 05/13/21 15:15 Acetaminophen 325 Mg Tablet PO 650 mg Q6H PRN Administration Mild Pain (1-3) or Fever Amlodipine Besylate 5 mg 05/16/21 11:00 05/16/21 15:00 Amlodipine Besylate 5 Mg Tablet PO 5 mg DAILY DARWIN Administration Benzocaine 1 lozenge 05/13/21 12:40 05/16/21 14:59 Benzocaine/Menthol (*Bkc) 18 Ea Lozenge PO 1 lozenge PRN PRN Administration Sore Throat Calcium Carbonate 200 mg 05/06/21 10:41 Calcium Carbonate (Tums) 500 Mg (200 Mg Elemental) PO Q6H PRN Indigestion Folic Acid 1 mg 05/15/21 09:00 05/16/21 08
--- NOTE | 2021-05-16 15:22 | P.PNNP_ITS ---
Progress Note: A&P Assessment and Plan (1) ESRD needing dialysis: Code(s): N18.6 - End stage renal disease; Z99.2 - Dependence on renal dialysis Status: Chronic Assessment and Plan: * HD tomorrow and continue T/T/S dialysis schedule * follow electrolytes, volume status, and clearance (2) Alcoholic liver failure: Code(s): K70.40 - Alcoholic hepatic failure without coma Status: Acute Assessment and Plan: * patient had not been taking lactulose prior to admission * ammonia levels very high on presentation * back on lactulose and ammonia levels are improved (3) Cutaneous abscess of left wrist: Code(s): L02.414 - Cutaneous abscess of left upper limb Status: Acute Assessment and Plan: * Plastic Surgery following * s/p I&D in OR (on 05/15/21) * follow culture results * on antibiotics (4) Encephalopathy, hepatic: Code(s): K72.90 - Hepatic failure, unspecified without coma Status: Acute Assessment and Plan: * ammonia level is better * mentation appears to be improving as well (5) Jugular vein thrombosis, right: Code(s): I82.890 - Acute embolism and thrombosis of other specified veins Status: Acute Assessment and Plan: * no anticoagulation indicated since he has bleeding/bruises * holding on new HD catheter placement given issues with platelets/INR (6) Coagulopathy: Code(s): D68.9 - Coagulation defect, unspecified Status: Acute Assessment and Plan: * due to liver disease * getting FFP as needed (7) Thrombocytopenia: Code(s): D69.6 - Thrombocytopenia, unspecified Status: Acute Assessment and Plan: * due to increased reticular endothelial uptake * getting platelets as needed (8) Erythropoietin deficiency anemia: Code(s): D63.1 - Anemia in chronic kidney disease Status: Acute Assessment and Plan: * continue Epogen with dialysis * follow trend of H/H * PRBC transfusion with HD PRN (9) Renal osteodystrophy: Code(s): N25.0 - Renal osteodystrophy Status: Acute Assessment and Plan: * follow calcium and phosphorus Will continue to follow. Subjective Date/time seen: 05/16/21 15:22 Overall, appears to be doing better; tolerated I&D yesterday AM with regard to left hand/wrist abscess; no other acute issues or problems at this time; no events overnight or earlier this morning. Exam Narrative: General: male in NAD Heart: normal S1 and S2; no rub Lungs: clear to auscultation Abdomen: soft, nontender, nondistended, positive bowel sounds Extremities: no cyanosis or clubbing; no edema; left hand with dressings in place Skin: multiple ecchymoses present Objective Data Vital Signs Vital Signs: Vital Signs Temp Pulse Resp BP Pulse Ox 05/16/21 15:20 37.0 C 78 18 137/72 100 05/16/21 08:24 78 05/16/21 06:00 36.3 C L 78 18 175/76 H 100 05/15/21 22:00 36.3 C L 77 18 160/83 H 100 Intake/Output Intake/Output: Intake & Output 05/13/21 05/14/21 05/15/21 05/16/21 23:59 23:59 23:59 23:59 Intake Total 1260 1500 1130 1800 Output Total 100 2000 150 100 Balance 1160 -347 331 6712 Meds/Results Medications: Active Medications
[2021-05-16] MEDS: MORPHINE SULFATE (*CRX) 2 MG/ML INJ 1 MG IV PUSH (17:39)
--- NOTE | 2021-05-16 21:23 | WPDPN ---
Progress Note: A&P Assessment and Plan (1) Cutaneous abscess of left wrist: Code(s): L02.414 - Cutaneous abscess of left upper limb Status: Acute Additional Plan Much improved. Continue current treatment. Wick out tomorrow. Time Spent With Patient Time with patient: 15 - 25 minutes Subjective Date/time seen: 05/16/21 21:23 Post Op day 1 I&D left dorsal wrist abscess Awake watching football at 2100 hrs. Believes hand and wrist feel much better. Dressing changed. Wick remains. Edema and erythema markedly reduced. Serous drainage No purulence. Cultures cx prelim. Staph aureus. Remains on Vanco and Pip. Objective Data Vital Signs Vital Signs: Vital Signs - 24 hr 05/15/21 22:00 05/16/21 06:00 05/16/21 08:24 Temperature 97.4 F L 97.3 F L Pulse Rate 77 78 78 Respiratory Rate 18 18 Blood Pressure 160/83 H 175/76 H Pulse Oximetry 100 100 05/16/21 15:21 Temperature 98.6 F Pulse Rate 78 Respiratory Rate 18 Blood Pressure 137/72 Pulse Oximetry 100 Intake/Output Intake/Output: Intake & Output 05/13/21 05/14/21 05/15/21 05/16/21 23:59 23:59 23:59 23:59 Intake Total 1260 1500 1130 1920 Output Total 100 2000 150 100 Balance 1160 -967 831 4141 Meds/Results Medications: Active Medications Generic Name Dose Route Start Last Admin Trade Name Freq PRN Reason Stop Dose Admin Acetaminophen 650 mg 05/12/21 22:23 05/13/21 15:15 Acetaminophen 325 Mg Tablet PO 650 mg Q6H PRN Administration Mild Pain (1-3) or Fever Amlodipine Besylate 5 mg 05/16/21 11:00 05/16/21 15:00 Amlodipine Besylate 5 Mg Tablet PO 5 mg DAILY DARWIN Administration Benzocaine 1 lozenge 05/13/21 12:40 05/16/21 14:59 Benzocaine/Menthol (*Bkc) 18 Ea Lozenge PO 1 lozenge PRN PRN Administration Sore Throat Calcium Carbonate 200 mg 05/06/21 10:41 Calcium Carbonate (Tums) 500 Mg (200 Mg Elemental) PO Q6H PRN Indigestion Folic Acid 1 mg 05/15/21 09:00 05/16/21 08:25 Folic Acid 1 Mg Tablet PO 1 mg DAILY DARWIN Administration Albumin Human 50 mls @ 999 mls/hr 05/10/21 07:05 Albutein IVPB 06/09/21 07:04 Q10M PRN HYPOTENSION Piperacillin Sod/Tazobactam Sod 2.25 gm in 50 mls @ 100 mls/hr 05/14/21 14:00 05/16/21 15:54 Zosyn 2.25 Gm/D5w 50 Ml IVPB Infused Q12H DARWIN Infusion Piperacillin Sod/Tazobactam 50 mls @ 50 mls/hr 05/14/21 16:00 05/15/21 19:15 Sod 0.75 gm/ Dextrose IVPB Infused [id number]@1600 DARWIN Infusion Vancomycin HCl 1,250 mg in 250 mls @ 200 mls/hr 05/14/21 11:23 Vancomycin 1,250 Mg/D5w 250 Ml IVPB PRN PRN vancomycin protocol Lactulose 20 gm 05/14/21 13:00 05/16/21 17:40 Lactulose 20 Gm/30 Ml Udc PO 20 gm TID DARWIN Administration Levetiracetam 500 mg 05/15/21 21:00 05/16/21 08:25 Levetiracetam 500 Mg Tablet PO 500 mg Q12HR DARWIN Administration Lisinopril 20 mg 05/16/21 11:00 05/16/21 15:00 Lisinopril 20 Mg Tablet PO 20 mg DAILY DARWIN Administration Melatonin 3 mg 05/13/21 21:00 05/15/21 20:43 Melatonin 3 Mg Tablet PO 3 mg HS DARWIN Administration Miscellaneous Information 0 each 05/16/21 00:01 Avatrombopag Nonformulary Can Pt Bring From Home? XX 06/15/21 00:00 CLARIFY DARWIN Morphine Sulfate 1 mg 05/13/21 16:51 05/16/21 17:39 Morphine Sulfate (*Crx) 2 Mg/Ml Inj IV PUSH 1 mg Q4H PRN Administration Pain Rated 7-10 Nadolol 20 mg 05/06/21 09:00 05/16/21 08:24 Nadolol 20 Mg Tablet PO 20 mg QAM DARWIN Administration Non-Formulary Medication 20 mg 05/17/21 09:00 Avatrombopag [Doptelet (15 Tab Pack)] PO 06/16/21 08:59 DAILY DARWIN Ondansetron HCl 4 mg 05/14/21 10:43 Ondansetron Inj 4 Mg/2 Ml Vial IV PUSH Q6H PRN Nausea And Vomiting Thiamine HCl 100 mg 05/15/21 09:00 05/16/21 08:24 Thiamine Hcl 100 Mg Tablet PO 100 mg QAM DARWIN Administration Radiology Results: ITS Impressions Chest/Abdom
[2021-05-16 21:24] VITALS: BP 172/84; PULSE 74; RESP 16; TEMP 36.6; O2SAT 98
[2021-05-16] MEDS: MELATONIN 3 MG TABLET PO (21:26)
[2021-05-16 23:39] VITALS: O2SAT 95
[2021-05-17] VITALS (21 sets, daily range): BP systolic 150–179; BP diastolic 73–97; PULSE 70–100; RESP 18–20; TEMP 36.5–37.2; O2SAT 95–98
[2021-05-17] MEDS: SODIUM CHLORIDE 0.9% IV 1,000 ML 100 ML IV CONT (07:35)
--- NOTE | 2021-05-17 07:55 | PC.NURSE ---
To dialysis via bed.
[2021-05-17] MEDS: EPOETIN ALFA-EPBX 10,000 UNITS/ML VIAL 10000 UNITS IV PUSH (09:53)
--- NOTE | 2021-05-17 10:19 | PCOTNOTE ---
Attempted to see pt for occupational therapy tx this AM, however, pt was out of room due to dialysis.
--- NOTE | 2021-05-17 10:30 | PC.NURSE ---
On 05/17/21, the student, [Keke Goldman ], provided care and completed [facility] documentation on this patient. I have reviewed the student's documentation and agree with the findings.
--- NOTE | 2021-05-17 10:56 | PCPTNOTE ---
The patient treatment was not able to be completed at this time due to patient out of room in dialysis. Will plan to continue treatment per plan of care.
--- NOTE | 2021-05-17 11:55 | PC.NURSE ---
Back from dialysis via bed.
[2021-05-17] MEDS: levETIRAcetam 500 MG TABLET PO ×2 (12:02→20:40)
[2021-05-17] MEDS: nadoloL 20 MG TABLET PO (12:02)
[2021-05-17] MEDS: amLODIPine BESYLATE 5 MG TABLET PO (12:03)
[2021-05-17] MEDS: FOLIC ACID 1 MG TABLET PO (12:03)
[2021-05-17] MEDS: LACTULOSE 20 GM/30 ML UDC PO ×3 (12:03→20:40)
[2021-05-17] MEDS: THIAMINE HCL 100 MG TABLET PO (12:03)
[2021-05-17] MEDS: lisinopriL 20 MG TABLET PO (12:04)
[2021-05-17] MEDS: BENZOCAINE/MENTHOL (*BKC) 18 EA LOZENGE 1 LOZENGE PO (12:04)
--- NOTE | 2021-05-17 12:20 | PM.IMPN ---
Progress Note: A&P Assessment and Plan (1) Acute respiratory failure: Code(s): J96.00 - Acute respiratory failure, unspecified whether with hypoxia or hypercapnia Status: Inactive Assessment and Plan: Resolved acute Respiratory failure secondary to status epilepticus. Patient was previously intubated for airway protection secondary to altered mental status in the setting of seizure activity. He was successfully extubated on 05/09/2021 -currently on room air with good O2 sats -encourage activity. Out of bed to chair. Encourage incentive spirometry. -PT OT follow-up Passed speech and swallow evaluation. Tolerating modified diet. Advance diet as tolerated. 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 Etiology of that is not fully clear. Likely from the sequela barium after being of dialysis for [address] was negative He has not had any additional episode of seizures EEG was done 05/09/2021, no evidence of ongoing seizure activity. Neurology is following the patient. We will continue Keppra Patient is awake, alert, oriented. His mentation is improving and he is sharper every day. Patient was informed to stop driving until he is seizure-free for 6 month, per regulations in [place]. (3) Encephalopathy acute: Code(s): G93.40 - Encephalopathy, unspecified Status: Acute Assessment and Plan: Resolved He had significant altered mental status at the time of presentation which seems to be postictal. -ammonia levels have normalized Head CT done post status epilepticus and intubation was unremarkable EEG done, report reviewed in neurology progress note from 05/10/2021. Patient educated about the need to remain sober in order to be considered for a liver transplant. Patient was evaluated for liver transplant as [facility]. His file was closed due to his ongoing alcoholism. Refer patient to acute rehab at the time of discharge for alcohol cessation. (4) Tongue laceration: Code(s): S01.512A - Laceration without foreign body of oral cavity, initial encounter Status: Acute Assessment and Plan: Patient bit his tongue during seizure, patient bled intermittently from his tongue laceration. His hemoglobin dropped to 6.9 on 05/11. He received PRBC transfusion during dialysis with improvement in his hemoglobin. (5) Anemia: Code(s): D64.9 - Anemia, unspecified Status: Acute Assessment and Plan: Severe anemia is likely multifactorial, in the setting of end-stage renal disease and previous tongue laceration with profuse bleeding. Patient was previously transfused 2 units PRBC and 2 units platelets on 05/07. He also received FFP on 05/06. Hemoglobin has drifted down to 6.9. He has received platelets and PRBC on 05/11/2021. He will receive platelets 05/12/2021. Continue erythropoiesis stimulating agents with hemodialysis. (6) ESRD needing dialysis: Code(s): N18.6 - End stage renal disease; Z99.2 - Dependence on renal dialysis Status: Chronic Assessment and Plan: noncompliant and missed dialysis for 3 weeks. He presented not in volume overload but significantly uremic and hyperkalemic hyperkalemia was temporally treated with medications in the ER and improved Patient was then dialyzed 05/06 was continued on dialysis since -hyperkalemia has resolved. Nephrology is following and continuation of dialysis as per nephrology service. -continue hemodialysis on a Sunday and Sunday per his regular schedule. Patient was educated about importance of compliance to his dialysis to avoid additional complications. Referred to liver and kidney Transplant evaluation upon discharge as an outpatient. (7) Hyperkalemia: Code(s): E87.5 - Hyperkalemia Status: Acute
[2021-05-17] MEDS: HYDROcodone/acetaminophen (*CRX) 7.5-325 MG TABLET 1 TAB PO ×2 (12:29→20:48)
[2021-05-17 12:38] LABS: Basophils Percent Auto 0.5 % (0.2-1.2); Eosinophils Absolute Auto 0.1 K/mm3 (0-0.3); Eosinophils Percent Auto 3.5 % (0-4.4); Hematocrit 30.2 % (42.0-52.0); Immature Granulocyte Absolute 0.02 K/mm3 (0.00-0.031); Immature Granulocyte Percent A 0.5 % (0-0.5); Lymphocytes Absolute Auto 0.57 K/mm3 (0.9-3.2); Lymphocytes Percent Auto 14.1 % (18.3-44.2); Mean Corpuscular HGB Conc 33.1 g/dl (32-36); Mean Corpuscular Hemoglobin 31.2 pg (26-34); Mean Corpuscular Volume 94.1 fl (80-100); Mean Platelet Volume 10.6 fl (7.4-10.4); Monocytes Absolute Auto 0.4 K/mm3 (0.1-0.6); Monocytes Percent Auto 10.9 % (2.6-8.5); Neutrophils Absolute Auto 2.9 K/mm3 (1.3-6.7); Neutrophils Percent Auto 70.5 % (45.5-73.1); Platelet Count Result 45 k/mm3 (150-375); Red Blood Count 3.21 M/mm3 (4.6-6.20); Red Cell Distribution Width 15.9 % (11.5-14.5)
[2021-05-17 12:49] LABS: Anion Gap 9 mmol/L (8-16); Blood Urea Nitrogen 22 mg/dL (9-20); Calcium 8.5 mg/dL (8.4-10.2); Carbon Dioxide 26 mmol/L (22-30); Chloride 98 mmol/L (98-107); Estimated CRCL calculation 23 ml/min; Estimated Glomerular Filt Rate 20; Glucose 117 mg/dL (65-110); Potassium 4.2 mmol/L (3.4-5.0); Sodium 133 mmol/L (137-145)
--- NOTE | 2021-05-17 13:30 | PCPTNOTE ---
Patient declined therapy on this attempt stating he was in dialysis this morning for 3 hours and would like to rest. Requests PT return later today.
--- NOTE | 2021-05-17 14:36 | P.PNNP_ITS ---
Progress Note: A&P Assessment and Plan (1) ESRD needing dialysis: Code(s): N18.6 - End stage renal disease; Z99.2 - Dependence on renal dialysis Status: Chronic Assessment and Plan: * HD today and continue T/T/S dialysis schedule * follow electrolytes, volume status, and clearance (2) Alcoholic liver failure: Code(s): K70.40 - Alcoholic hepatic failure without coma Status: Acute Assessment and Plan: * patient had not been taking lactulose prior to admission * ammonia levels very high on presentation * back on lactulose and ammonia levels are improved (3) Cutaneous abscess of left wrist: Code(s): L02.414 - Cutaneous abscess of left upper limb Status: Acute Assessment and Plan: * Plastic Surgery following * s/p I&D in OR (on 05/15/21) * follow culture results * on antibiotics (4) Encephalopathy, hepatic: Code(s): K72.90 - Hepatic failure, unspecified without coma Status: Acute Assessment and Plan: * ammonia level is better * mentation appears to be improving as well (5) Jugular vein thrombosis, right: Code(s): I82.890 - Acute embolism and thrombosis of other specified veins Status: Acute Assessment and Plan: * no anticoagulation indicated since he has bleeding/bruises * holding on new HD catheter placement given issues with platelets/INR (6) Coagulopathy: Code(s): D68.9 - Coagulation defect, unspecified Status: Acute Assessment and Plan: * due to liver disease * getting FFP as needed (7) Thrombocytopenia: Code(s): D69.6 - Thrombocytopenia, unspecified Status: Acute Assessment and Plan: * due to increased reticular endothelial uptake * getting platelets as needed (8) Erythropoietin deficiency anemia: Code(s): D63.1 - Anemia in chronic kidney disease Status: Acute Assessment and Plan: * continue Epogen with dialysis * follow trend of H/H * PRBC transfusion with HD PRN (9) Renal osteodystrophy: Code(s): N25.0 - Renal osteodystrophy Status: Acute Assessment and Plan: * follow calcium and phosphorus Will continue to follow. Subjective Date/time seen: 05/17/21 14:36 Tolerated dialysis treatment earlier today without any issues or problems; no apparent distress to report at this time; no events overnight or earlier this AM; left hand/wrist continues to improve. Exam Narrative: General: male in NAD Heart: normal S1 and S2; no rub Lungs: clear to auscultation Abdomen: soft, nontender, nondistended, positive bowel sounds Extremities: no cyanosis or clubbing; no edema; left hand with dressings in place Skin: multiple ecchymoses apparent Objective Data Vital Signs Vital Signs: Vital Signs Temp Pulse Resp BP Pulse Ox 05/17/21 14:00 37.1 C 81 20 160/78 H 96 05/17/21 12:02 100 05/17/21 11:52 36.6 C 86 18 168/92 H 05/17/21 11:41 87 169/89 H 05/17/21 11:15 86 172/90 H 05/17/21 11:00 84 179/91 H 05/17/21 10:45 85 159/88 H 05/17/21 10:30 81 172/87 H 05/17/21 10:15 81 171/91 H 05/17/21 10:00 79 166/96 H 05/17/21 09:45 80 176/93 H 05/17/21 09:30 81 162/97 H 05/17/21 09:15 81 155/92 H 05/17/21 09:00 75
--- NOTE | 2021-05-17 14:36 | PM.PNNEP ---
Progress Note: A&P Assessment and Plan (1) ESRD needing dialysis: Code(s): N18.6 - End stage renal disease; Z99.2 - Dependence on renal dialysis Status: Chronic Assessment and Plan: HD today and continue T/T/S dialysis schedule follow electrolytes, volume status, and clearance (2) Alcoholic liver failure: Code(s): K70.40 - Alcoholic hepatic failure without coma Status: Acute Assessment and Plan: patient had not been taking lactulose prior to admission ammonia levels very high on presentation back on lactulose and ammonia levels are improved (3) Cutaneous abscess of left wrist: Code(s): L02.414 - Cutaneous abscess of left upper limb Status: Acute Assessment and Plan: Plastic Surgery following s/p I&D in OR (on 05/15/21) follow culture results on antibiotics (4) Encephalopathy, hepatic: Code(s): K72.90 - Hepatic failure, unspecified without coma Status: Acute Assessment and Plan: ammonia level is better mentation appears to be improving as well (5) Jugular vein thrombosis, right: Code(s): I82.890 - Acute embolism and thrombosis of other specified veins Status: Acute Assessment and Plan: no anticoagulation indicated since he has bleeding/bruises holding on new HD catheter placement given issues with platelets/INR (6) Coagulopathy: Code(s): D68.9 - Coagulation defect, unspecified Status: Acute Assessment and Plan: due to liver disease getting FFP as needed (7) Thrombocytopenia: Code(s): D69.6 - Thrombocytopenia, unspecified Status: Acute Assessment and Plan: due to increased reticular endothelial uptake getting platelets as needed (8) Erythropoietin deficiency anemia: Code(s): D63.1 - Anemia in chronic kidney disease Status: Acute Assessment and Plan: continue Epogen with dialysis follow trend of H/H PRBC transfusion with HD PRN (9) Renal osteodystrophy: Code(s): N25.0 - Renal osteodystrophy Status: Acute Assessment and Plan: follow calcium and phosphorus Will continue to follow. Subjective Date/time seen: 05/17/21 14:36 Tolerated dialysis treatment earlier today without any issues or problems; no apparent distress to report at this time; no events overnight or earlier this AM; left hand/wrist continues to improve. Exam Narrative: General: male in NAD Heart: normal S1 and S2; no rub Lungs: clear to auscultation Abdomen: soft, nontender, nondistended, positive bowel sounds Extremities: no cyanosis or clubbing; no edema; left hand with dressings in place Skin: multiple ecchymoses apparent Objective Data Vital Signs Vital Signs: Vital Signs Temp Pulse Resp BP Pulse Ox 05/17/21 14:00 37.1 C 81 20 160/78 H 96 05/17/21 12:02 100 05/17/21 11:52 36.6 C 86 18 168/92 H 05/17/21 11:41 87 169/89 H 05/17/21 11:15 86 172/90 H 05/17/21 11:00 84 179/91 H 05/17/21 10:45 85 159/88 H 05/17/21 10:30 81 172/87 H 05/17/21 10:15 81 171/91 H 05/17/21 10:00 79 166/96 H 05/17/21 09:45 80 176/93 H 05/17/21 09:30 81 162/97 H 05/17/21 09:15 81 155/92 H 05/17/21 09:00 75 170/87 H 05/17/21 08:45 75 166/84 H 05/17/21 08:30 73 157/91 H 05/17/21 08:11 70 158/90 H 05/17/21 07:58 36.7 C 72 18 162/85 H 05/17/21 06:00 36.5 C 74 18 150/73 H 98 05/16/21 23:39 95 05/16/21 21:24 36.6 C 74 16 172/84 H 98 Intake/Output Intake/Output: Intake & Output 05/14/21 05/15/21 05/16/21 05/17/21 23:59 23:59 23:59 23:59 Intake Total 1500 1130 2170 1010 Output Total 2000 634 549 5983 Balance -682 766 4606 -1090 Meds/Results Medications: Active Medications Generic Name Dose Route Start Last Admin Trade Name Freq PRN Reason Stop Dose Admin Acetaminophen 325 mg 05/17/21 12:18 A
--- NOTE | 2021-05-17 18:15 | WPDPN ---
Progress Note: A&P Assessment and Plan (1) Cutaneous abscess of left wrist: Code(s): L02.414 - Cutaneous abscess of left upper limb Status: Acute Assessment and Plan: Left wrist abscess wound healing well. Will instigate regular washing and simplify the dressing (2) Hematoma: Code(s): T14.8XXA - Other injury of unspecified body region, initial encounter Status: Acute Assessment and Plan: Will see the patient middle of the day tomorrow try to aspirate this hematoma at the bedside Subjective Date/time seen: 05/17/21 18:15 POD 2 Left hand continues to improve. Wick removed today. Dressing changed. Will try to get him into a shower to rinse out the wound. Objective Data Vital Signs Vital Signs: Vital Signs - 24 hr 05/16/21 21:24 05/16/21 23:39 05/17/21 06:00 Temperature 97.8 F 97.7 F Pulse Rate 74 74 Respiratory Rate 16 18 Blood Pressure 172/84 H 150/73 H Pulse Oximetry 98 95 98 05/17/21 07:58 05/17/21 08:11 05/17/21 08:30 Temperature 98.1 F Pulse Rate 72 70 73 Respiratory Rate 18 Blood Pressure 162/85 H 158/90 H 157/91 H Pulse Oximetry 05/17/21 08:45 05/17/21 09:00 05/17/21 09:15 Temperature Pulse Rate 75 75 81 Respiratory Rate Blood Pressure 166/84 H 170/87 H 155/92 H Pulse Oximetry 05/17/21 09:30 05/17/21 09:45 05/17/21 10:00 Temperature Pulse Rate 81 80 79 Respiratory Rate Blood Pressure 162/97 H 176/93 H 166/96 H Pulse Oximetry 05/17/21 10:15 05/17/21 10:30 05/17/21 10:45 Temperature Pulse Rate 81 81 85 Respiratory Rate Blood Pressure 171/91 H 172/87 H 159/88 H Pulse Oximetry 05/17/21 11:00 05/17/21 11:15 05/17/21 11:41 Temperature Pulse Rate 84 86 87 Respiratory Rate Blood Pressure 179/91 H 172/90 H 169/89 H Pulse Oximetry 05/17/21 11:52 05/17/21 12:02 05/17/21 14:00 Temperature 98 F 98.7 F Pulse Rate 86 100 81 Respiratory Rate 18 20 Blood Pressure 168/92 H 160/78 H Pulse Oximetry 96 Intake/Output Intake/Output: Intake & Output 05/14/21 05/15/21 05/16/21 05/17/21 23:59 23:59 23:59 23:59 Intake Total 1500 1130 2170 1010 Output Total 2000 773 213 4899 Balance -857 706 2404 -1090 Meds/Results Medications: Active Medications Generic Name Dose Route Start Last Admin Trade Name Freq PRN Reason Stop Dose Admin Acetaminophen 325 mg 05/17/21 12:18 Acetaminophen 325 Mg Tablet PO Q4H PRN Mild Pain (1-3) or Fever Hydrocodone Bitart/Acetaminophen 1 tab 05/17/21 12:17 05/17/21 12:29 Hydrocodone/Acetaminophen (*Crx) 7.5-325 Mg Tablet PO 1 tab Q4H PRN Administration Pain Rated 7-10 Amlodipine Besylate 5 mg 05/16/21 11:00 05/17/21 12:03 Amlodipine Besylate 5 Mg Tablet PO 5 mg DAILY DARWIN Administration Benzocaine 1 lozenge 05/13/21 12:40 05/17/21 12:04 Benzocaine/Menthol (*Bkc) 18 Ea Lozenge PO 1 lozenge PRN PRN Administration Sore Throat Calcium Carbonate 200 mg 05/06/21 10:41 Calcium Carbonate (Tums) 500 Mg (200 Mg Elemental) PO Q6H PRN Indigestion Epoetin Nasir-epbx 10,000 units 05/17/21 19:25 05/17/21 09:53 Epoetin Nasir-Epbx 10,000 Units/Ml Vial IV PUSH 05/17/21 19:26 10,000 units ONCE ONE Administration Folic Acid 1 mg 05/15/21 09:00 05/17/21 12:03 Folic Acid 1 Mg Tablet PO 1 mg DAILY DARWIN Administration Albumin Human 50 mls @ 999 mls/hr 05/10/21 07:05 Albutein IVPB 06/09/21 07:04 Q10M PRN HYPOTENSION Piperacillin Sod/Tazobactam Sod 2.25 gm in 50 mls @ 100 mls/hr 05/14/21 14:00 05/17/21 14:58 Zosyn 2.25 Gm/D5w 50 Ml IVPB Infused Q12H DARWIN Infusion Piperacillin Sod/Tazobactam 50 mls @ 50 mls/hr 05/14/21 16:00 05/17/21 15:24 Sod 0.75 gm/ Dextrose IVPB 50 mls/hr [id number] DARWIN Administration Vancomycin HCl 1,250 mg in 250 mls @ 200 mls/hr 05/14/21 11:23 Vancomycin 1,250 Mg/D5w 250 Ml IVPB PRN PRN vancomycin protocol
[2021-05-17] MEDS: MELATONIN 3 MG TABLET PO (20:40)
[2021-05-18 06:00] VITALS: BP 168/81; PULSE 71; RESP 18; TEMP 36.4; O2SAT 98
[2021-05-18 06:33] LABS: Hematocrit 28.7 % (42.0-52.0); Hemoglobin 9.1 g/dL (14.0-18.0); Immature Platelet Fraction Pct 3.8 % (0.9-11.2); Mean Corpuscular HGB Conc 31.7 g/dl (32-36); Mean Corpuscular Hemoglobin 30.7 pg (26-34); Mean Platelet Volume 11.3 fl (7.4-10.4); Platelet Count Result 38 k/mm3 (150-375); Red Blood Count 2.96 M/mm3 (4.6-6.20); Red Cell Distribution Width 16.2 % (11.5-14.5); White Blood Count 4.1 K/mm3 (4.5-10.0)
[2021-05-18 06:39] LABS: Anion Gap 10 mmol/L (8-16); Blood Urea Nitrogen 28 mg/dL (9-20); Calcium 8.6 mg/dL (8.4-10.2); Carbon Dioxide 26 mmol/L (22-30); Chloride 99 mmol/L (98-107); Estimated CRCL calculation 18 ml/min; Estimated Glomerular Filt Rate 12; Glucose 105 mg/dL (65-110); Potassium 4.4 mmol/L (3.4-5.0); Sodium 135 mmol/L (137-145)
[2021-05-18 08:53] VITALS: PULSE 76
[2021-05-18] MEDS: nadoloL 20 MG TABLET PO (08:53)
[2021-05-18] MEDS: THIAMINE HCL 100 MG TABLET PO (08:53)
[2021-05-18] MEDS: levETIRAcetam 500 MG TABLET PO ×2 (08:53→21:37)
[2021-05-18] MEDS: lisinopriL 20 MG TABLET PO (08:54)
[2021-05-18] MEDS: amLODIPine BESYLATE 5 MG TABLET PO (08:54)
[2021-05-18] MEDS: LACTULOSE 20 GM/30 ML UDC PO ×3 (08:54→17:40)
[2021-05-18] MEDS: FOLIC ACID 1 MG TABLET PO (08:54)
[2021-05-18] MEDS: HYDROcodone/acetaminophen (*CRX) 7.5-325 MG TABLET 1 TAB PO ×3 (08:55→21:53)
--- NOTE | 2021-05-18 10:16 | WPDPN ---
Progress Note: A&P Assessment and Plan (1) Cutaneous abscess of left wrist: Code(s): L02.414 - Cutaneous abscess of left upper limb Status: Acute Assessment and Plan: Markedly improved and closing by secondary intention. Dressing changed. Pt may shower and get wrist wound wet. Tegaderm and 2x2 gauze dressing by nursing staff every other day or as needed for soilage. D/C Murphy wrap. (2) Hematoma: Code(s): T14.8XXA - Other injury of unspecified body region, initial encounter Status: Acute Assessment and Plan: Stable, Large at 3-4 cm in diameter and elevation. Probably amenable to partial aspiration. Aspirate hematoma today by needle at bedside. Time Spent With Patient Time with patient: 15 - 25 minutes Subjective Date/time seen: 05/18/21 10:16 Interval history: Pt drowsy and polite. Agrees to aspiration attempt on right cheek hematoma as we have discussed a couple of times. . Dressing changed on left wrist. No purulence. Able to extend and flex fingers and wrist without pain. Objective Data Vital Signs Vital Signs: Vital Signs - 24 hr 05/17/21 10:30 05/17/21 10:45 05/17/21 11:00 Temperature Pulse Rate 81 85 84 Respiratory Rate Blood Pressure 172/87 H 159/88 H 179/91 H Pulse Oximetry 05/17/21 11:15 05/17/21 11:41 05/17/21 11:52 Temperature 98 F Pulse Rate 86 87 86 Respiratory Rate 18 Blood Pressure 172/90 H 169/89 H 168/92 H Pulse Oximetry 05/17/21 12:02 05/17/21 14:00 05/17/21 21:23 Temperature 98.7 F Pulse Rate 100 81 Respiratory Rate 20 Blood Pressure 160/78 H Pulse Oximetry 96 95 05/17/21 22:00 05/18/21 06:00 05/18/21 08:53 Temperature 98.9 F 97.6 F Pulse Rate 81 71 76 Respiratory Rate 18 18 Blood Pressure 161/81 H 168/81 H Pulse Oximetry 97 98 Intake/Output Intake/Output: Intake & Output 05/15/21 05/16/21 05/17/21 05/18/21 23:59 23:59 23:59 23:59 Intake Total 1130 2170 1060 620 Output Total 411 491 0820 100 Balance 980 2070 -1040 520 Meds/Results Medications: Active Medications Generic Name Dose Route Start Last Admin Trade Name Freq PRN Reason Stop Dose Admin Acetaminophen 325 mg 05/17/21 12:18 Acetaminophen 325 Mg Tablet PO Q4H PRN Mild Pain (1-3) or Fever Hydrocodone Bitart/Acetaminophen 1 tab 05/17/21 12:17 05/18/21 08:55 Hydrocodone/Acetaminophen (*Crx) 7.5-325 Mg Tablet PO 1 tab Q4H PRN Administration Pain Rated 7-10 Amlodipine Besylate 5 mg 05/16/21 11:00 05/18/21 08:54 Amlodipine Besylate 5 Mg Tablet PO 5 mg DAILY DARWIN Administration Benzocaine 1 lozenge 05/13/21 12:40 05/17/21 12:04 Benzocaine/Menthol (*Bkc) 18 Ea Lozenge PO 1 lozenge PRN PRN Administration Sore Throat Calcium Carbonate 200 mg 05/06/21 10:41 Calcium Carbonate (Tums) 500 Mg (200 Mg Elemental) PO Q6H PRN Indigestion Folic Acid 1 mg 05/15/21 09:00 05/18/21 08:54 Folic Acid 1 Mg Tablet PO 1 mg DAILY DARWIN Administration Albumin Human 50 mls @ 999 mls/hr 05/10/21 07:05 Albutein IVPB 06/09/21 07:04 Q10M PRN HYPOTENSION Piperacillin Sod/Tazobactam Sod 2.25 gm in 50 mls @ 100 mls/hr 05/14/21 14:00 05/18/21 03:30 Zosyn 2.25 Gm/D5w 50 Ml IVPB Infused Q12H DARWIN Infusion Piperacillin Sod/Tazobactam 50 mls @ 50 mls/hr 05/14/21 16:00 05/17/21 19:30 Sod 0.75 gm/ Dextrose IVPB Infused [id number] DARWIN Infusion Vancomycin HCl 1,250 mg in 250 mls @ 200 mls/hr 05/14/21 11:23 Vancomycin 1,250 Mg/D5w 250 Ml IVPB PRN PRN vancomycin protocol Lactulose 20 gm 05/14/21 13:00 05/18/21 08:54 Lactulose 20 Gm/30 Ml Udc PO 20 gm TID DARWIN Administration Levetiracetam 500 mg 05/15/21 21:00 05/18/21 08:53 Levetiracetam 500 Mg Tablet PO 500 mg Q12HR DARWIN Administration Lisinopril 20 mg 05/16/21 11:00 05/18/21 08:54 Lisinopril 20 Mg Tablet PO 20 mg DAILY DARWIN Administration Belkis
--- NOTE | 2021-05-18 10:46 | W.PM.PROC2 ---
Procedure Note - Detailed Date of Procedure 05/18/21 Pre-op Diagnosis Hematoma left Zygoma Post-op Diagnosis same Procedure Performed Needle aspiration of hematoma of left zygoma. Surgeon Lonnie Ta MD Anesthesia none Indications Large fluctuant hematoma Findings old blood Description of Procedure Pt aware of our purpose. Site prepped with Betadine. Aspiration performed in two stages with insertion of 18 ga. needle on a 12 ml syringe. Total of 22 ml of dark liquid blood removed without pain. small gauze bandage applied. Estimated Blood Loss 22 Urine Output 100 Drains No Packing No Pathology none sent Condition stable Disposition no change
[2021-05-18 14:00] VITALS: BP 150/92; PULSE 70; RESP 18; TEMP 36.7; O2SAT 96
--- NOTE | 2021-05-18 14:20 | PM.IMPN ---
Progress Note: A&P Assessment and Plan (1) Acute respiratory failure: Code(s): J96.00 - Acute respiratory failure, unspecified whether with hypoxia or hypercapnia Status: Resolved Assessment and Plan: Resolved acute Respiratory failure secondary to status epilepticus. 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 Etiology of that is not fully clear. Likely from the sequela barium after being of dialysis for [address] was negative He has not had any additional episode of seizures EEG was done 05/09/2021, no evidence of ongoing seizure activity. Neurology is following the patient. We will continue Keppra Patient is awake, alert, oriented. His mentation is improving and he is sharper every day. Patient was informed to stop driving until he is seizure-free for 6 month, per regulations in [place]. (3) Encephalopathy acute: Code(s): G93.40 - Encephalopathy, unspecified Status: Acute Assessment and Plan: Resolved He had significant altered mental status at the time of presentation which seems to be postictal. -ammonia levels have normalized Head CT done post status epilepticus and intubation was unremarkable EEG done, report reviewed in neurology progress note from 05/10/2021. Patient educated about the need to remain sober in order to be considered for a liver transplant. Patient was evaluated for liver transplant as [facility]. His file was closed due to his ongoing alcoholism. Refer patient to acute rehab at the time of discharge for alcohol cessation. (4) Tongue laceration: Code(s): S01.512A - Laceration without foreign body of oral cavity, initial encounter Status: Acute Assessment and Plan: Patient bit his tongue during seizure, patient bled intermittently from his tongue laceration. His hemoglobin dropped to 6.9 on 05/11. He received PRBC transfusion during dialysis with improvement in his hemoglobin. (5) Anemia: Code(s): D64.9 - Anemia, unspecified Status: Acute Assessment and Plan: Severe anemia is likely multifactorial, in the setting of end-stage renal disease and previous tongue laceration with profuse bleeding. Patient was previously transfused 2 units PRBC and 2 units platelets on 05/07. He also received FFP on 05/06. Hemoglobin has drifted down to 6.9. He has received platelets and PRBC on 05/11/2021. He will receive platelets 05/12/2021. Continue erythropoiesis stimulating agents with hemodialysis. (6) ESRD needing dialysis: Code(s): N18.6 - End stage renal disease; Z99.2 - Dependence on renal dialysis Status: Chronic Assessment and Plan: noncompliant and missed dialysis for 3 weeks. He presented not in volume overload but significantly uremic and hyperkalemic hyperkalemia was temporally treated with medications in the ER and improved Patient was then dialyzed 05/06 was continued on dialysis since -hyperkalemia has resolved. Nephrology is following and continuation of dialysis as per nephrology service. -continue hemodialysis on a Sunday and Sunday per his regular schedule. Patient was educated about importance of compliance to his dialysis to avoid additional complications. Referred to liver and kidney Transplant evaluation upon discharge as an outpatient. (7) Hyperkalemia: Code(s): E87.5 - Hyperkalemia Status: Acute Assessment and Plan: Resolved after initial treatment with medications and later dialysis. Continue renal dialysis diet. (8) Hematoma: Code(s): T14.8XXA - Other injury of unspecified body region, initial encounter Status: Acute Assessment and Plan: Hematoma of the left cheek, discussed with Dr. Noriega General surgery. sp drainage today (9) Fall: Code(s):
--- NOTE | 2021-05-18 15:32 | PM.PNNEP ---
Progress Note: A&P Assessment and Plan (1) ESRD needing dialysis: Code(s): N18.6 - End stage renal disease; Z99.2 - Dependence on renal dialysis Status: Chronic Assessment and Plan: HD tomorrow and continue T/T/S dialysis schedule follow electrolytes, volume status, and clearance (2) Alcoholic liver failure: Code(s): K70.40 - Alcoholic hepatic failure without coma Status: Acute Assessment and Plan: patient had not been taking lactulose prior to admission ammonia levels very high on presentation back on lactulose and ammonia levels are improved (3) Cutaneous abscess of left wrist: Code(s): L02.414 - Cutaneous abscess of left upper limb Status: Acute Assessment and Plan: Plastic Surgery following s/p I&D in OR (on 05/15/21) culture results noted on antibiotics (4) Encephalopathy, hepatic: Code(s): K72.90 - Hepatic failure, unspecified without coma Status: Acute Assessment and Plan: ammonia level is better mentation appears to be improving as well (5) Jugular vein thrombosis, right: Code(s): I82.890 - Acute embolism and thrombosis of other specified veins Status: Acute Assessment and Plan: no anticoagulation indicated since he has bleeding/bruises holding on new HD catheter placement given issues with platelets/INR (6) Coagulopathy: Code(s): D68.9 - Coagulation defect, unspecified Status: Acute Assessment and Plan: due to liver disease getting FFP as needed (7) Thrombocytopenia: Code(s): D69.6 - Thrombocytopenia, unspecified Status: Acute Assessment and Plan: due to increased reticular endothelial uptake getting platelets as needed (8) Erythropoietin deficiency anemia: Code(s): D63.1 - Anemia in chronic kidney disease Status: Acute Assessment and Plan: continue Epogen with dialysis follow trend of H/H PRBC transfusion with HD PRN (9) Renal osteodystrophy: Code(s): N25.0 - Renal osteodystrophy Status: Acute Assessment and Plan: follow calcium and phosphorus Will continue to follow. Subjective Date/time seen: 05/18/21 15:32 Seems to be slowly improving day to day; tolerated dialysis treatment yesterday without any problems; left wrist wound healing appropriately; s/p check aspiration at bedside earlier today; no events overnight or earlier this morning; no distress noted. Exam Narrative: General: WD/WN male in NAD Heart: normal S1 and S2; no rub Lungs: clear to auscultation Abdomen: soft, nontender, nondistended, positive bowel sounds Extremities: no cyanosis or clubbing; no edema; left hand wounds healing Skin: multiple ecchymoses noted Objective Data Vital Signs Vital Signs: Vital Signs Temp Pulse Resp BP Pulse Ox 05/18/21 14:00 36.7 C 70 18 150/92 H 96 05/18/21 08:53 76 05/18/21 06:00 36.4 C 71 18 168/81 H 98 05/17/21 22:00 37.2 C 81 18 161/81 H 97 05/17/21 21:23 95 Intake/Output Intake/Output: Intake & Output 05/15/21 05/16/21 05/17/21 05/18/21 23:59 23:59 23:59 23:59 Intake Total 1130 2170 1060 860 Output Total 181 984 9963 200 Balance 980 2070 -1040 660 Meds/Results Medications: Active Medications Generic Name Dose Route Start Last Admin Trade Name Freq PRN Reason Stop Dose Admin Acetaminophen 325 mg 05/17/21 12:18 Acetaminophen 325 Mg Tablet PO Q4H PRN Mild Pain (1-3) or Fever Hydrocodone Bitart/Acetaminophen 1 tab 05/17/21 12:17 05/18/21 14:59 Hydrocodone/Acetaminophen (*Crx) 7.5-325 Mg Tablet PO 1 tab Q4H PRN Administration Pain Rated 7-10 Amlodipine Besylate 5 mg 05/16/21 11:00 05/18/21 08:54 Amlodipine Besylate 5 Mg Tablet PO 5 mg DAILY DARWIN Administration Benzocaine 1 lozenge 05/13/21 12:40 05/17/21 12:04 Benzocaine/Menthol (*Bkc) 18 Ea Lozenge PO 1 lozenge
--- NOTE | 2021-05-18 15:32 | P.PNNP_ITS ---
Progress Note: A&P Assessment and Plan (1) ESRD needing dialysis: Code(s): N18.6 - End stage renal disease; Z99.2 - Dependence on renal dialysis Status: Chronic Assessment and Plan: * HD tomorrow and continue T/T/S dialysis schedule * follow electrolytes, volume status, and clearance (2) Alcoholic liver failure: Code(s): K70.40 - Alcoholic hepatic failure without coma Status: Acute Assessment and Plan: * patient had not been taking lactulose prior to admission * ammonia levels very high on presentation * back on lactulose and ammonia levels are improved (3) Cutaneous abscess of left wrist: Code(s): L02.414 - Cutaneous abscess of left upper limb Status: Acute Assessment and Plan: * Plastic Surgery following * s/p I&D in OR (on 05/15/21) * culture results noted * on antibiotics (4) Encephalopathy, hepatic: Code(s): K72.90 - Hepatic failure, unspecified without coma Status: Acute Assessment and Plan: * ammonia level is better * mentation appears to be improving as well (5) Jugular vein thrombosis, right: Code(s): I82.890 - Acute embolism and thrombosis of other specified veins Status: Acute Assessment and Plan: * no anticoagulation indicated since he has bleeding/bruises * holding on new HD catheter placement given issues with platelets/INR (6) Coagulopathy: Code(s): D68.9 - Coagulation defect, unspecified Status: Acute Assessment and Plan: * due to liver disease * getting FFP as needed (7) Thrombocytopenia: Code(s): D69.6 - Thrombocytopenia, unspecified Status: Acute Assessment and Plan: * due to increased reticular endothelial uptake * getting platelets as needed (8) Erythropoietin deficiency anemia: Code(s): D63.1 - Anemia in chronic kidney disease Status: Acute Assessment and Plan: * continue Epogen with dialysis * follow trend of H/H * PRBC transfusion with HD PRN (9) Renal osteodystrophy: Code(s): N25.0 - Renal osteodystrophy Status: Acute Assessment and Plan: * follow calcium and phosphorus Will continue to follow. Subjective Date/time seen: 05/18/21 15:32 Seems to be slowly improving day to day; tolerated dialysis treatment yesterday without any problems; left wrist wound healing appropriately; s/p check aspiration at bedside earlier today; no events overnight or earlier this morning; no distress noted. Exam Narrative: General: WD/WN male in NAD Heart: normal S1 and S2; no rub Lungs: clear to auscultation Abdomen: soft, nontender, nondistended, positive bowel sounds Extremities: no cyanosis or clubbing; no edema; left hand wounds healing Skin: multiple ecchymoses noted Objective Data Vital Signs Vital Signs: Vital Signs Temp Pulse Resp BP Pulse Ox 05/18/21 14:00 36.7 C 70 18 150/92 H 96 05/18/21 08:53 76 05/18/21 06:00 36.4 C 71 18 168/81 H 98 05/17/21 22:00 37.2 C 81 18 161/81 H 97 05/17/21 21:23 95 Intake/Output Intake/Output: Intake & Output 05/15/21 05/16/21 05/17/21 05/18/21 23:59 23:59 23:59 23:59 Intake Total 1130 2170 1060 860 Output Total 709 579 0810 200 Balance 980 2070 -1040 660
[2021-05-18] MEDS: MELATONIN 3 MG TABLET PO (21:37)
[2021-05-18 22:00] VITALS: BP 155/93; PULSE 72; RESP 18; TEMP 36.6; O2SAT 99
[2021-05-19] VITALS (22 sets, daily range): BP systolic 137–174; BP diastolic 71–95; PULSE 72–88; RESP 16–20; TEMP 36–36.8; O2SAT 96–99
[2021-05-19 06:48] LABS: Estimated CRCL calculation 13 ml/min; Estimated Glomerular Filt Rate 8; Hematocrit 27.9 % (42.0-52.0); Hemoglobin 8.9 g/dL (14.0-18.0); Immature Platelet Fraction Pct 3.9 % (0.9-11.2); Mean Corpuscular HGB Conc 31.9 g/dl (32-36); Mean Corpuscular Hemoglobin 30.4 pg (26-34); Mean Corpuscular Volume 95.2 fl (80-100); Platelet Count Result 42 k/mm3 (150-375); Red Blood Count 2.93 M/mm3 (4.6-6.20); Red Cell Distribution Width 15.9 % (11.5-14.5); White Blood Count 3.7 K/mm3 (4.5-10.0)
[2021-05-19 07:02] LABS: Anion Gap 12 mmol/L (8-16); Blood Urea Nitrogen 40 mg/dL (9-20); Calcium 8.6 mg/dL (8.4-10.2); Carbon Dioxide 27 mmol/L (22-30); Chloride 92 mmol/L (98-107); Estimated CRCL calculation 14 ml/min; Estimated Glomerular Filt Rate 8; Glucose 111 mg/dL (65-110); Potassium 4.4 mmol/L (3.4-5.0); Sodium 131 mmol/L (137-145)
[2021-05-19] MEDS: FOLIC ACID 1 MG TABLET PO (08:39)
[2021-05-19] MEDS: HYDROcodone/acetaminophen (*CRX) 7.5-325 MG TABLET 1 TAB PO ×2 (08:39→20:40)
[2021-05-19] MEDS: levETIRAcetam 500 MG TABLET PO ×2 (08:39→20:31)
[2021-05-19] MEDS: THIAMINE HCL 100 MG TABLET PO (08:40)
[2021-05-19] MEDS: diphenhydrAMINE HCl CAP 25 MG CAPSULE PO ×2 (08:43→20:40)
--- NOTE | 2021-05-19 10:40 | PCPTNOTE ---
The patient treatment was not able to be completed due to patient out of room for dialysis. Will plan to continue treatment per plan of care.
[2021-05-19] MEDS: EPOETIN ALFA-EPBX 10,000 UNITS/ML VIAL 10000 UNITS IV PUSH (10:59)
[2021-05-19] MEDS: SODIUM CHLORIDE 0.9% IV 1,000 ML 999 ML IV CONT (11:00)
--- NOTE | 2021-05-19 11:15 | P.PNIM_ITS ---
Progress Note: A&P Assessment and Plan (1) Acute respiratory failure: Code(s): J96.00 - Acute respiratory failure, unspecified whether with hypoxia or hypercapnia Status: Resolved Assessment and Plan: Resolved acute Respiratory failure secondary to status epilepticus. 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 Etiology of that is not fully clear. Likely from the sequela barium after being of dialysis for [address] was negative He has not had any additional episode of seizures EEG was done 05/09/2021, no evidence of ongoing seizure activity. Neurology is following the patient. We will continue Keppra Patient is awake, alert, oriented. His mentation is improving and he is sharper every day. Patient was informed to stop driving until he is seizure-free for 6 month, per regulations in [place]. (3) Encephalopathy acute: Code(s): G93.40 - Encephalopathy, unspecified Status: Acute Assessment and Plan: Resolved He had significant altered mental status at the time of presentation which seems to be postictal. -ammonia levels have normalized Head CT done post status epilepticus and intubation was unremarkable EEG done, report reviewed in neurology progress note from 05/10/2021. Patient educated about the need to remain sober in order to be considered for a liver transplant. Patient was evaluated for liver transplant as [facility]. His file was closed due to his ongoing alcoholism. Refer patient to acute rehab at the time of discharge for alcohol cessation. (4) Tongue laceration: Code(s): S01.512A - Laceration without foreign body of oral cavity, initial encounter Status: Acute Assessment and Plan: Patient bit his tongue during seizure, patient bled intermittently from his tongue laceration. His hemoglobin dropped to 6.9 on 05/11. He received PRBC t ransfusion during dialysis with improvement in his hemoglobin. (5) Anemia: Code(s): D64.9 - Anemia, unspecified Status: Acute Assessment and Plan: Severe anemia is likely multifactorial, in the setting of end-stage renal disease and previous tongue laceration with profuse bleeding. Patient was previously transfused 2 units PRBC and 2 units platelets on 05/07. He also received FFP on 05/06. Hemoglobin has drifted down to 6.9. He has received platelets and PRBC on 05/11/2021. He will receive platelets 05/12/2021. Continue erythropoiesis stimulating agents with hemodialysis. (6) ESRD needing dialysis: Code(s): N18.6 - End stage renal disease; Z99.2 - Dependence on renal dialysis Status: Chronic Assessment and Plan: noncompliant and missed dialysis for 3 weeks. He presented not in volume overload but significantly uremic and hyperkalemic hyperkalemia was temporally treated with medications in the ER and improved Patient was then dialyzed 05/06 was continued on dialysis since -hyperkalemia has resolved. Nephrology is following and continuation of dialysis as per nephrology service. -continue hemodialysis on a Sunday and Sunday per his regular schedule. Patient was educated about importance of compliance to his dialysis to avoid additional complications. Referred to liver and kidney Transplant evaluation upon discharge as an outpatient. (7) Hyperkalemia: Code(s): E87.5 - Hyperkalemia Status: Acute Assessment and Plan: Resolved after initial treatment with medi
--- NOTE | 2021-05-19 12:18 | P.PNNP_ITS ---
Progress Note: A&P Assessment and Plan (1) ESRD needing dialysis: Code(s): N18.6 - End stage renal disease; Z99.2 - Dependence on renal dialysis Status: Chronic Assessment and Plan: * HD today and continue T/T/S dialysis schedule * follow electrolytes, volume status, and clearance (2) Alcoholic liver failure: Code(s): K70.40 - Alcoholic hepatic failure without coma Status: Acute Assessment and Plan: * patient had not been taking lactulose prior to admission * ammonia levels very high on presentation * back on lactulose and ammonia levels are improved (3) Cutaneous abscess of left wrist: Code(s): L02.414 - Cutaneous abscess of left upper limb Status: Acute Assessment and Plan: * Plastic Surgery following * s/p I&D in OR (on 05/15/21) * culture results noted * on antibiotics (4) Encephalopathy, hepatic: Code(s): K72.90 - Hepatic failure, unspecified without coma Status: Acute Assessment and Plan: * ammonia level is better * mentation appears to be improving as well (5) Jugular vein thrombosis, right: Code(s): I82.890 - Acute embolism and thrombosis of other specified veins Status: Acute Assessment and Plan: * no anticoagulation indicated since he has bleeding/bruises * holding on new HD catheter placement given issues with platelets/INR (6) Coagulopathy: Code(s): D68.9 - Coagulation defect, unspecified Status: Acute Assessment and Plan: * due to liver disease * getting FFP as needed (7) Thrombocytopenia: Code(s): D69.6 - Thrombocytopenia, unspecified Status: Acute Assessment and Plan: * due to increased reticular endothelial uptake * getting platelets as needed (8) Erythropoietin deficiency anemia: Code(s): D63.1 - Anemia in chronic kidney disease Status: Acute Assessment and Plan: * continue Epogen with dialysis * follow trend of H/H * PRBC transfusion with HD PRN (9) Renal osteodystrophy: Code(s): N25.0 - Renal osteodystrophy Status: Acute Assessment and Plan: * follow calcium and phosphorus Will continue to follow. Subjective Date/time seen: 05/19/21 12:18 Tolerating hemodialysis at the time of my visit (seen on HD at ~ 12:05PM); no other acute issues or problems voiced at this time; no events overnight or earlier this AM; no apparent distress noted. Exam Narrative: General: WD/WN male in NAD Heart: normal S1 and S2; no rub Lungs: clear to auscultation Abdomen: soft, nontender, nondistended, positive bowel sounds Extremities: no cyanosis or clubbing; no edema; left hand wounds healing Skin: multiple ecchymoses that seem to be resolving Objective Data Vital Signs Vital Signs: Vital Signs Temp Pulse Resp BP Pulse Ox 05/19/21 12:00 78 162/83 H 05/19/21 11:45 80 171/94 H 05/19/21 11:30 76 160/86 H 05/19/21 11:15 75 137/71 05/19/21 11:00 75 154/72 H 05/19/21 10:45 75 141/84 H 05/19/21 10:30 75 153/84 H 05/19/21 10:00 72 169/93 H 05/19/21 09:42 75 172/92 H 05/19/21 09:30 36.6 C 72 16 174/88 H 05/19/21 05:56 36.3 C L 73 18 141/78 H 99 05/18/21 22:00 36.6 C 72 18 155/93 H 99 05/18/21 14:00 36.7 C 70 1
--- NOTE | 2021-05-19 12:18 | PM.PNNEP ---
Progress Note: A&P Assessment and Plan (1) ESRD needing dialysis: Code(s): N18.6 - End stage renal disease; Z99.2 - Dependence on renal dialysis Status: Chronic Assessment and Plan: HD today and continue T/T/S dialysis schedule follow electrolytes, volume status, and clearance (2) Alcoholic liver failure: Code(s): K70.40 - Alcoholic hepatic failure without coma Status: Acute Assessment and Plan: patient had not been taking lactulose prior to admission ammonia levels very high on presentation back on lactulose and ammonia levels are improved (3) Cutaneous abscess of left wrist: Code(s): L02.414 - Cutaneous abscess of left upper limb Status: Acute Assessment and Plan: Plastic Surgery following s/p I&D in OR (on 05/15/21) culture results noted on antibiotics (4) Encephalopathy, hepatic: Code(s): K72.90 - Hepatic failure, unspecified without coma Status: Acute Assessment and Plan: ammonia level is better mentation appears to be improving as well (5) Jugular vein thrombosis, right: Code(s): I82.890 - Acute embolism and thrombosis of other specified veins Status: Acute Assessment and Plan: no anticoagulation indicated since he has bleeding/bruises holding on new HD catheter placement given issues with platelets/INR (6) Coagulopathy: Code(s): D68.9 - Coagulation defect, unspecified Status: Acute Assessment and Plan: due to liver disease getting FFP as needed (7) Thrombocytopenia: Code(s): D69.6 - Thrombocytopenia, unspecified Status: Acute Assessment and Plan: due to increased reticular endothelial uptake getting platelets as needed (8) Erythropoietin deficiency anemia: Code(s): D63.1 - Anemia in chronic kidney disease Status: Acute Assessment and Plan: continue Epogen with dialysis follow trend of H/H PRBC transfusion with HD PRN (9) Renal osteodystrophy: Code(s): N25.0 - Renal osteodystrophy Status: Acute Assessment and Plan: follow calcium and phosphorus Will continue to follow. Subjective Date/time seen: 05/19/21 12:18 Tolerating hemodialysis at the time of my visit (seen on HD at ~ 12:05PM); no other acute issues or problems voiced at this time; no events overnight or earlier this AM; no apparent distress noted. Exam Narrative: General: WD/WN male in NAD Heart: normal S1 and S2; no rub Lungs: clear to auscultation Abdomen: soft, nontender, nondistended, positive bowel sounds Extremities: no cyanosis or clubbing; no edema; left hand wounds healing Skin: multiple ecchymoses that seem to be resolving Objective Data Vital Signs Vital Signs: Vital Signs Temp Pulse Resp BP Pulse Ox 05/19/21 12:00 78 162/83 H 05/19/21 11:45 80 171/94 H 05/19/21 11:30 76 160/86 H 05/19/21 11:15 75 137/71 05/19/21 11:00 75 154/72 H 05/19/21 10:45 75 141/84 H 05/19/21 10:30 75 153/84 H 05/19/21 10:00 72 169/93 H 05/19/21 09:42 75 172/92 H 05/19/21 09:30 36.6 C 72 16 174/88 H 05/19/21 05:56 36.3 C L 73 18 141/78 H 99 05/18/21 22:00 36.6 C 72 18 155/93 H 99 05/18/21 14:00 36.7 C 70 18 150/92 H 96 Intake/Output Intake/Output: Intake & Output 05/16/21 05/17/21 05/18/21 05/19/21 23:59 23:59 23:59 23:59 Intake Total 2170 1060 2710 450 Output Total 100 2100 600 300 Balance 2070 -1040 2110 150 Meds/Results Medications: Active Medications Generic Name Dose Route Start Last Admin Trade Name Freq PRN Reason Stop Dose Admin Acetaminophen 325 mg 05/17/21 12:18 Acetaminophen 325 Mg Tablet PO Q4H PRN Mild Pain (1-3) or Fever Hydrocodone Bitart/Acetaminophen 1 tab 05/17/21 12:17 05/19/21 08:39 Hydrocodone/Acetaminophen (*Crx) 7.5-325 Mg Tablet PO 1 tab Q4H PRN Administration Pain Ra
--- NOTE | 2021-05-19 13:09 | PCOTNOTE ---
Attempted to see patient this pm, however patient in dialysis at this time.
--- NOTE | 2021-05-19 13:30 | PC.NURSE ---
Went to dialysis via bed at 0900, back from dialysis via bed at 1330
[2021-05-19] MEDS: nadoloL 20 MG TABLET PO (13:44)
[2021-05-19] MEDS: amLODIPine BESYLATE 5 MG TABLET PO (13:44)
[2021-05-19] MEDS: LACTULOSE 20 GM/30 ML UDC PO ×2 (13:44→17:45)
[2021-05-19] MEDS: lisinopriL 20 MG TABLET PO (13:44)
[2021-05-19 18:23] LABS: Vancomycin Random 10.9 ug/mL (10-20)
[2021-05-19] MEDS: MELATONIN 3 MG TABLET PO (20:32)
[2021-05-20 06:00] VITALS: BP 174/89; PULSE 78; RESP 18; TEMP 36.3; O2SAT 100
[2021-05-20 08:00] VITALS: PULSE 80; RESP 18; O2SAT 100
[2021-05-20 09:09] LABS: Hematocrit 27.5 % (42.0-52.0); Hemoglobin 8.5 g/dL (14.0-18.0); Immature Platelet Fraction Pct 2.5 % (0.9-11.2); Mean Corpuscular HGB Conc 30.9 g/dl (32-36); Mean Corpuscular Volume 100.4 fl (80-100); Mean Platelet Volume 10.3 fl (7.4-10.4); Platelet Count Result 43 k/mm3 (150-375); Red Blood Count 2.74 M/mm3 (4.6-6.20); White Blood Count 3.2 K/mm3 (4.5-10.0)
[2021-05-20 09:25] LABS: Anion Gap 8 mmol/L (8-16); Blood Urea Nitrogen 22 mg/dL (9-20); CRP 4.6 mg/dL (<1.0); Calcium 8.6 mg/dL (8.4-10.2); Carbon Dioxide 23 mmol/L (22-30); Chloride 103 mmol/L (98-107); Estimated CRCL calculation 20 ml/min; Estimated Glomerular Filt Rate 13; Glucose 110 mg/dL (65-110); Potassium 4.8 mmol/L (3.4-5.0); Sodium 134 mmol/L (137-145)
[2021-05-20] MEDS: HYDROcodone/acetaminophen (*CRX) 7.5-325 MG TABLET 1 TAB PO ×3 (09:33→21:59)
[2021-05-20] MEDS: LACTULOSE 20 GM/30 ML UDC PO (09:33)
[2021-05-20 09:34] VITALS: PULSE 80
[2021-05-20] MEDS: levETIRAcetam 500 MG TABLET PO ×2 (09:34→21:49)
[2021-05-20] MEDS: THIAMINE HCL 100 MG TABLET PO (09:34)
[2021-05-20] MEDS: amLODIPine BESYLATE 5 MG TABLET PO (09:34)
[2021-05-20] MEDS: FOLIC ACID 1 MG TABLET PO (09:34)
[2021-05-20] MEDS: lisinopriL 20 MG TABLET PO (09:34)
[2021-05-20] MEDS: nadoloL 20 MG TABLET PO (09:34)
[2021-05-20] MEDS: diphenhydrAMINE HCl CAP 25 MG CAPSULE PO ×2 (09:36→21:49)
--- NOTE | 2021-05-20 13:22 | P.PNNP_ITS ---
Progress Note: A&P Assessment and Plan (1) ESRD needing dialysis: Code(s): N18.6 - End stage renal disease; Z99.2 - Dependence on renal dialysis Status: Chronic Assessment and Plan: * HD tomorrow and continue T/T/S dialysis schedule * follow electrolytes, volume status, and clearance (2) Alcoholic liver failure: Code(s): K70.40 - Alcoholic hepatic failure without coma Status: Acute Assessment and Plan: * patient had not been taking lactulose prior to admission * ammonia levels very high on presentation * back on lactulose and ammonia levels are improved (3) Cutaneous abscess of left wrist: Code(s): L02.414 - Cutaneous abscess of left upper limb Status: Acute Assessment and Plan: * Plastic Surgery following * s/p I&D in OR (on 05/15/21) * culture results noted * on antibiotics (4) Encephalopathy, hepatic: Code(s): K72.90 - Hepatic failure, unspecified without coma Status: Acute Assessment and Plan: * ammonia level is better * mentation appears to be improving as well (5) Jugular vein thrombosis, right: Code(s): I82.890 - Acute embolism and thrombosis of other specified veins Status: Acute Assessment and Plan: * no anticoagulation indicated since he has bleeding/bruises * holding on new HD catheter placement given issues with platelets/INR (6) Coagulopathy: Code(s): D68.9 - Coagulation defect, unspecified Status: Acute Assessment and Plan: * due to liver disease * getting FFP as needed (7) Thrombocytopenia: Code(s): D69.6 - Thrombocytopenia, unspecified Status: Acute Assessment and Plan: * due to increased reticular endothelial uptake * getting platelets as needed (8) Erythropoietin deficiency anemia: Code(s): D63.1 - Anemia in chronic kidney disease Status: Acute Assessment and Plan: * continue Epogen with dialysis * follow trend of H/H * PRBC transfusion with HD PRN (9) Renal osteodystrophy: Code(s): N25.0 - Renal osteodystrophy Status: Acute Assessment and Plan: * follow calcium and phosphorus Will continue to follow. Subjective Date/time seen: 05/20/21 13:22 No new issues or problems noted/voiced at the time of my visit; tolerated dialysis yesterday without any issue or problems; no events overnight or earlier this morning; hand/wrist wounds doing well. Exam Narrative: General: WD/WN male in NAD Heart: normal S1 and S2; no rub Lungs: clear to auscultation Abdomen: soft, nontender, nondistended, positive bowel sounds Extremities: no cyanosis or clubbing; no edema; left hand wounds healing Skin: multiple ecchymoses that are improving Objective Data Vital Signs Vital Signs: Vital Signs Temp Pulse Resp BP Pulse Ox 05/20/21 14:00 36.8 C 78 18 168/85 H 99 05/20/21 09:34 80 05/20/21 08:00 80 18 100 05/20/21 06:00 36.3 C L 78 18 174/89 H 100 05/19/21 22:00 36.7 C 82 18 164/87 H 98 05/19/21 20:50 96 Intake/Output Intake/Output: Intake & Output 05/17/21 05/18/21 05/19/21 05/20/21 23:59 23:59 23:59 23:59 Intake Total 1060 2710 1520 1370 Output Total 2100 600 2300 400 Balance -1040 2110 -780 970
--- NOTE | 2021-05-20 13:22 | PM.PNNEP ---
Progress Note: A&P Assessment and Plan (1) ESRD needing dialysis: Code(s): N18.6 - End stage renal disease; Z99.2 - Dependence on renal dialysis Status: Chronic Assessment and Plan: HD tomorrow and continue T/T/S dialysis schedule follow electrolytes, volume status, and clearance (2) Alcoholic liver failure: Code(s): K70.40 - Alcoholic hepatic failure without coma Status: Acute Assessment and Plan: patient had not been taking lactulose prior to admission ammonia levels very high on presentation back on lactulose and ammonia levels are improved (3) Cutaneous abscess of left wrist: Code(s): L02.414 - Cutaneous abscess of left upper limb Status: Acute Assessment and Plan: Plastic Surgery following s/p I&D in OR (on 05/15/21) culture results noted on antibiotics (4) Encephalopathy, hepatic: Code(s): K72.90 - Hepatic failure, unspecified without coma Status: Acute Assessment and Plan: ammonia level is better mentation appears to be improving as well (5) Jugular vein thrombosis, right: Code(s): I82.890 - Acute embolism and thrombosis of other specified veins Status: Acute Assessment and Plan: no anticoagulation indicated since he has bleeding/bruises holding on new HD catheter placement given issues with platelets/INR (6) Coagulopathy: Code(s): D68.9 - Coagulation defect, unspecified Status: Acute Assessment and Plan: due to liver disease getting FFP as needed (7) Thrombocytopenia: Code(s): D69.6 - Thrombocytopenia, unspecified Status: Acute Assessment and Plan: due to increased reticular endothelial uptake getting platelets as needed (8) Erythropoietin deficiency anemia: Code(s): D63.1 - Anemia in chronic kidney disease Status: Acute Assessment and Plan: continue Epogen with dialysis follow trend of H/H PRBC transfusion with HD PRN (9) Renal osteodystrophy: Code(s): N25.0 - Renal osteodystrophy Status: Acute Assessment and Plan: follow calcium and phosphorus Will continue to follow. Subjective Date/time seen: 05/20/21 13:22 No new issues or problems noted/voiced at the time of my visit; tolerated dialysis yesterday without any issue or problems; no events overnight or earlier this morning; hand/wrist wounds doing well. Exam Narrative: General: WD/WN male in NAD Heart: normal S1 and S2; no rub Lungs: clear to auscultation Abdomen: soft, nontender, nondistended, positive bowel sounds Extremities: no cyanosis or clubbing; no edema; left hand wounds healing Skin: multiple ecchymoses that are improving Objective Data Vital Signs Vital Signs: Vital Signs Temp Pulse Resp BP Pulse Ox 05/20/21 14:00 36.8 C 78 18 168/85 H 99 05/20/21 09:34 80 05/20/21 08:00 80 18 100 05/20/21 06:00 36.3 C L 78 18 174/89 H 100 05/19/21 22:00 36.7 C 82 18 164/87 H 98 05/19/21 20:50 96 Intake/Output Intake/Output: Intake & Output 05/17/21 05/18/21 05/19/21 05/20/21 23:59 23:59 23:59 23:59 Intake Total 1060 2710 1520 1370 Output Total 2100 600 2300 400 Balance -1040 2110 -780 970 Meds/Results Medications: Active Medications Generic Name Dose Route Start Last Admin Trade Name Freq PRN Reason Stop Dose Admin Acetaminophen 325 mg 05/17/21 12:18 Acetaminophen 325 Mg Tablet PO Q4H PRN Mild Pain (1-3) or Fever Hydrocodone Bitart/Acetaminophen 1 tab 05/17/21 12:17 05/20/21 09:33 Hydrocodone/Acetaminophen (*Crx) 7.5-325 Mg Tablet PO 1 tab Q4H PRN Administration Pain Rated 7-10 Amlodipine Besylate 5 mg 05/16/21 11:00 05/20/21 09:34 Amlodipine Besylate 5 Mg Tablet PO 5 mg DAILY DARWIN Administration Benzocaine 1 lozenge 05/13/21 12:40 05/17/21 12:04 Benzocaine/Menthol (*Bkc) 18 Ea Lozenge PO 1 lozenge PRN P
[2021-05-20 14:00] VITALS: BP 168/85; PULSE 78; RESP 18; TEMP 36.8; O2SAT 99
--- NOTE | 2021-05-20 16:29 | WPDGICN ---
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 will need of course liver imaging every 6 months for hcc surveillance (reviewed CT scan here) call if questions (2) Encephalopathy, hepatic: Code(s): K72.90 - Hepatic failure, unspecified without coma Status: Acute Assessment and Plan: better with lactulose will add also xifaxan (3) Seizure: Code(s): R56.9 - Unspecified convulsions Status: Acute (4) Pancytopenia: Code(s): D61.818 - Other pancytopenia Status: Acute Assessment and Plan: stable numbers, probably multifactorial from esrd, cirrhosis, alcohol abuse no signs of gib (5) ESRD needing dialysis: Code(s): N18.6 - End stage renal disease; Z99.2 - Dependence on renal dialysis Status: Chronic Assessment and Plan: by title coordinator (6) Fall: Code(s): W19.XXXA - Unspecified fall, initial encounter Status: Acute (7) Facial hematoma: Code(s): S00.83XA - Contusion of other part of head, initial encounter Status: Acute Assessment and Plan: recent hematoma evacuation and on antibiotics GI Consult Note Consult date/time: 05/20/21 16:29 Reason for consult: alcoholic cirrhosis HPI: Jj Cuello is a 55 year old male with history of known alcoholic cirrhosis, 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 He was admitted to the hospital on 05/06/21 after he missed his dialysis for almost 3 weeks and also history of fall at home with facial trauma. He was encephalopathic and briefly intubated in ICU for airway protection because had a seizure. Eventually he was moved to the floor where he has been recovery, also required drainage of large hematoma in left face. He has cirrhosis and based on records [facility] by Dr. Sparks. Patient was declined and his file was closed due to ongoing alcohol abuse (says that started drinking after getting divorce, quit just few weeks ago). He also had remote history of paracentesis and used to be on lactulose but discontinued about 1 year ago. Here his ammonia on admission 300's but back down to normal and now he is back on lactulose. He is not confused anymore. Review of Systems Constitutional: Constitutional: Reports weakness Eyes: Eyes: Reports no additional eye complaints ENT: Reports Normal hearing present Cardiovascular: Cardiovascular: Denies chest pain Respiratory: Respiratory: Denies dyspnea Gastrointestinal: Gastrointestinal: Denies abdominal pain Genitourinary: Genitourinary: Denies dysuria Musculoskeletal: Comments: facial trauma Integumentary/Breasts: Comments: bruises Neurologic: Reports system reviewed and no additional complaints, except as documented Psychiatric: Psychiatric: Reports anxiety [facility] Past Medical History Medical History (Updated 05/20/21 @ 16:48 by Rito Moran MD) Acute respiratory failure Alcoholic liver failure Cirrhosis Cirrhosis, alcoholic Coagulopathy Encephalopathy, hepatic Erythropoietin deficiency anemia ESRD needing dialysis Facial hematoma Pancytopenia Renal osteodystrophy Seizure Thrombocytopenia Social History Social History Smoking status: Never smoker Alcohol intake: current Drinks per week: 3 Substance use: never Spiritual care concerns: No Meds Home Medications and Allergies Home Medications Medication Instructions R
--- NOTE | 2021-05-20 17:17 | WPDPN ---
Progress Note: A&P Assessment and Plan (1) Facial hematoma: Code(s): S00.83XA - Contusion of other part of head, initial encounter Status: Acute Assessment and Plan: May need additional aspiration. (2) Cellulitis and abscess of hand: Code(s): L03.119 - Cellulitis of unspecified part of limb; L02.519 - Cutaneous abscess of unspecified hand Status: Acute Assessment and Plan: Healing well, OK for discharge anytime. Will need daily dressing. Subjective Date/time seen: 05/19/21 17:17 Pt still drowsy, Hematoma has partially refilled. Not painful. Hand wound healing well. Objective Data Vital Signs Vital Signs: Vital Signs - 24 hr 05/19/21 20:50 05/19/21 22:00 05/20/21 06:00 Temperature 98.0 F 97.4 F L Pulse Rate 82 78 Respiratory Rate 18 18 Blood Pressure 164/87 H 174/89 H Pulse Oximetry 96 98 100 05/20/21 08:00 05/20/21 09:34 05/20/21 14:00 Temperature 98.2 F Pulse Rate 80 80 78 Respiratory Rate 18 18 Blood Pressure 168/85 H Pulse Oximetry 100 99 Intake/Output Intake/Output: Intake & Output 05/17/21 05/18/21 05/19/21 05/20/21 23:59 23:59 23:59 23:59 Intake Total 1060 2710 1520 1370 Output Total 2100 600 2300 400 Balance -1040 2110 -780 970 Meds/Results Medications: Active Medications Generic Name Dose Route Start Last Admin Trade Name Freq PRN Reason Stop Dose Admin Acetaminophen 325 mg 05/17/21 12:18 Acetaminophen 325 Mg Tablet PO Q4H PRN Mild Pain (1-3) or Fever Hydrocodone Bitart/Acetaminophen 1 tab 05/17/21 12:17 05/20/21 16:39 Hydrocodone/Acetaminophen (*Crx) 7.5-325 Mg Tablet PO 1 tab Q4H PRN Administration Pain Rated 7-10 Amlodipine Besylate 5 mg 05/16/21 11:00 05/20/21 09:34 Amlodipine Besylate 5 Mg Tablet PO 5 mg DAILY DARWIN Administration Benzocaine 1 lozenge 05/13/21 12:40 05/17/21 12:04 Benzocaine/Menthol (*Bkc) 18 Ea Lozenge PO 1 lozenge PRN PRN Administration Sore Throat Calcium Carbonate 200 mg 05/06/21 10:41 Calcium Carbonate (Tums) 500 Mg (200 Mg Elemental) PO Q6H PRN Indigestion Diphenhydramine HCl 25 mg 05/19/21 07:51 05/20/21 09:36 Diphenhydramine Hcl Cap 25 Mg Capsule PO 25 mg TID PRN Administration Itching Folic Acid 1 mg 05/15/21 09:00 05/20/21 09:34 Folic Acid 1 Mg Tablet PO 1 mg DAILY DARWIN Administration Albumin Human 50 mls @ 999 mls/hr 05/10/21 07:05 Albutein IVPB 06/09/21 07:04 Q10M PRN HYPOTENSION Piperacillin Sod/Tazobactam Sod 2.25 gm in 50 mls @ 100 mls/hr 05/14/21 14:00 05/20/21 14:34 Zosyn 2.25 Gm/D5w 50 Ml IVPB 100 mls/hr Q12H DARWIN Administration Piperacillin Sod/Tazobactam 50 mls @ 50 mls/hr 05/14/21 16:00 05/19/21 15:59 Sod 0.75 gm/ Dextrose IVPB Infused [id number] DARWIN Infusion Vancomycin HCl 1,250 mg in 250 mls @ 200 mls/hr 05/14/21 11:23 Vancomycin 1,250 Mg/D5w 250 Ml IVPB PRN PRN vancomycin protocol Lactulose 20 gm 05/14/21 13:00 05/20/21 16:42 Lactulose 20 Gm/30 Ml Udc PO Not Given TID DARWIN Levetiracetam 500 mg 05/15/21 21:00 05/20/21 09:34 Levetiracetam 500 Mg Tablet PO 500 mg Q12HR DARWIN Administration Lisinopril 20 mg 05/16/21 11:00 05/20/21 09:34 Lisinopril 20 Mg Tablet PO 20 mg DAILY DARWIN Administration Melatonin 3 mg 05/13/21 21:00 05/19/21 20:32 Melatonin 3 Mg Tablet PO 3 mg HS DARWIN Administration Morphine Sulfate 1 mg 05/13/21 16:51 05/16/21 17:39 Morphine Sulfate (*Crx) 2 Mg/Ml Inj IV PUSH 1 mg Q4H PRN Administration Pain Rated 7-10 Nadolol 20 mg 05/06/21 09:00 05/20/21 09:34 Nadolol 20 Mg Tablet PO 20 mg QAM DARWIN Administration Ondansetron HCl 4 mg 05/14/21 10:43 Ondansetron Inj 4 Mg/2 Ml Vial IV PUSH Q6H PRN Nausea And Vomiting Rifaximin 550 mg 05/20/21 21:00 Rifaximin 550 Mg Tablet PO Q12HR [facility] Thiamine HCl 100 mg 05/15/21 09
[2021-05-20 21:39] VITALS: O2SAT 98
[2021-05-20] MEDS: HYDROCORTISONE 1% 30 GM CREAM 1 APPLIC TOPICAL (21:49)
[2021-05-20] MEDS: rifAXIMin 550 MG TABLET PO (21:49)
[2021-05-20] MEDS: MELATONIN 3 MG TABLET PO (21:49)
[2021-05-20 22:00] VITALS: BP 170/86; PULSE 78; RESP 18; TEMP 36.4; O2SAT 100
[2021-05-21] VITALS (20 sets, daily range): BP systolic 143–176; BP diastolic 79–104; PULSE 67–88; RESP 18; TEMP 36.6–37; O2SAT 97
[2021-05-21 09:13] LABS: Anion Gap 10 mmol/L (8-16); Blood Urea Nitrogen 30 mg/dL (9-20); Calcium 8.4 mg/dL (8.4-10.2); Carbon Dioxide 20 mmol/L (22-30); Chloride 100 mmol/L (98-107); Estimated CRCL calculation 15 ml/min; Estimated Glomerular Filt Rate 9; Glucose 94 mg/dL (65-110); Sodium 130 mmol/L (137-145)
[2021-05-21] MEDS: HYDROcodone/acetaminophen (*CRX) 7.5-325 MG TABLET 1 TAB PO (09:28)
[2021-05-21] MEDS: nadoloL 20 MG TABLET PO (09:29)
[2021-05-21] MEDS: rifAXIMin 550 MG TABLET PO ×2 (09:29→20:13)
[2021-05-21] MEDS: amLODIPine BESYLATE 5 MG TABLET PO (09:29)
[2021-05-21] MEDS: THIAMINE HCL 100 MG TABLET PO (09:30)
[2021-05-21] MEDS: lisinopriL 20 MG TABLET PO (09:30)
[2021-05-21] MEDS: FOLIC ACID 1 MG TABLET PO (09:30)
[2021-05-21] MEDS: HYDROCORTISONE 1% 30 GM CREAM 1 APPLIC TOPICAL ×2 (09:30→20:14)
[2021-05-21] MEDS: levETIRAcetam 500 MG TABLET PO ×2 (09:30→20:13)
--- NOTE | 2021-05-21 11:15 | P.PNNP_ITS ---
Progress Note: A&P Assessment and Plan (1) ESRD needing dialysis: Code(s): N18.6 - End stage renal disease; Z99.2 - Dependence on renal dialysis Status: Chronic Assessment and Plan: * HD today and continue T/T/S dialysis schedule * follow electrolytes, volume status, and clearance (2) Alcoholic liver failure: Code(s): K70.40 - Alcoholic hepatic failure without coma Status: Acute Assessment and Plan: * patient had not been taking lactulose prior to admission * ammonia levels very high on presentation * back on lactulose and ammonia levels are improved (3) Cutaneous abscess of left wrist: Code(s): L02.414 - Cutaneous abscess of left upper limb Status: Acute Assessment and Plan: * Plastic Surgery following * s/p I&D in OR (on 05/15/21) * culture results noted * on antibiotics (4) Encephalopathy, hepatic: Code(s): K72.90 - Hepatic failure, unspecified without coma Status: Acute Assessment and Plan: * ammonia level is better * mentation appears to be improving as well (5) Jugular vein thrombosis, right: Code(s): I82.890 - Acute embolism and thrombosis of other specified veins Status: Acute Assessment and Plan: * no anticoagulation indicated since he has bleeding/bruises * holding on new HD catheter placement given issues with platelets/INR (6) Coagulopathy: Code(s): D68.9 - Coagulation defect, unspecified Status: Acute Assessment and Plan: * due to liver disease * getting FFP as needed (7) Thrombocytopenia: Code(s): D69.6 - Thrombocytopenia, unspecified Status: Acute Assessment and Plan: * due to increased reticular endothelial uptake * getting platelets as needed (8) Erythropoietin deficiency anemia: Code(s): D63.1 - Anemia in chronic kidney disease Status: Acute Assessment and Plan: * continue Epogen with dialysis * follow trend of H/H * PRBC transfusion with HD PRN (9) Renal osteodystrophy: Code(s): N25.0 - Renal osteodystrophy Status: Acute Assessment and Plan: * follow calcium and phosphorus Will continue to follow. Subjective Date/time seen: 05/21/21 11:15 No new issues or problems to report at this time; scheduled for dialysis this afternoon; no events overnight or earlier this AM; feels reasonably well. Exam Narrative: General: WD/WN male in NAD Heart: normal S1 and S2; no rub Lungs: clear to auscultation Abdomen: soft, nontender, nondistended, positive bowel sounds Extremities: no cyanosis or clubbing; no edema; left hand wounds healing Skin: multiple ecchymoses that healing Objective Data Vital Signs Vital Signs: Vital Signs Temp Pulse Resp BP Pulse Ox 05/21/21 09:29 70 05/21/21 08:00 70 18 97 05/21/21 06:00 36.6 C 67 18 165/79 H 97 05/20/21 22:00 36.4 C 78 18 170/86 H 100 05/20/21 21:39 98 05/20/21 14:00 36.8 C 78 18 168/85 H 99 Intake/Output Intake/Output: Intake & Output 05/18/21 05/19/21 05/20/21 05/21/21 23:59 23:59 23:59 23:59 Intake Total 2710 1520 2040 660 Output Total 600 2300 400 150 Balance 2110 -780 1640 510 Meds/Results Medications: Active Medicat
--- NOTE | 2021-05-21 11:15 | PM.PNNEP ---
Progress Note: A&P Assessment and Plan (1) ESRD needing dialysis: Code(s): N18.6 - End stage renal disease; Z99.2 - Dependence on renal dialysis Status: Chronic Assessment and Plan: HD today and continue T/T/S dialysis schedule follow electrolytes, volume status, and clearance (2) Alcoholic liver failure: Code(s): K70.40 - Alcoholic hepatic failure without coma Status: Acute Assessment and Plan: patient had not been taking lactulose prior to admission ammonia levels very high on presentation back on lactulose and ammonia levels are improved (3) Cutaneous abscess of left wrist: Code(s): L02.414 - Cutaneous abscess of left upper limb Status: Acute Assessment and Plan: Plastic Surgery following s/p I&D in OR (on 05/15/21) culture results noted on antibiotics (4) Encephalopathy, hepatic: Code(s): K72.90 - Hepatic failure, unspecified without coma Status: Acute Assessment and Plan: ammonia level is better mentation appears to be improving as well (5) Jugular vein thrombosis, right: Code(s): I82.890 - Acute embolism and thrombosis of other specified veins Status: Acute Assessment and Plan: no anticoagulation indicated since he has bleeding/bruises holding on new HD catheter placement given issues with platelets/INR (6) Coagulopathy: Code(s): D68.9 - Coagulation defect, unspecified Status: Acute Assessment and Plan: due to liver disease getting FFP as needed (7) Thrombocytopenia: Code(s): D69.6 - Thrombocytopenia, unspecified Status: Acute Assessment and Plan: due to increased reticular endothelial uptake getting platelets as needed (8) Erythropoietin deficiency anemia: Code(s): D63.1 - Anemia in chronic kidney disease Status: Acute Assessment and Plan: continue Epogen with dialysis follow trend of H/H PRBC transfusion with HD PRN (9) Renal osteodystrophy: Code(s): N25.0 - Renal osteodystrophy Status: Acute Assessment and Plan: follow calcium and phosphorus Will continue to follow. Subjective Date/time seen: 05/21/21 11:15 No new issues or problems to report at this time; scheduled for dialysis this afternoon; no events overnight or earlier this AM; feels reasonably well. Exam Narrative: General: WD/WN male in NAD Heart: normal S1 and S2; no rub Lungs: clear to auscultation Abdomen: soft, nontender, nondistended, positive bowel sounds Extremities: no cyanosis or clubbing; no edema; left hand wounds healing Skin: multiple ecchymoses that healing Objective Data Vital Signs Vital Signs: Vital Signs Temp Pulse Resp BP Pulse Ox 05/21/21 09:29 70 05/21/21 08:00 70 18 97 05/21/21 06:00 36.6 C 67 18 165/79 H 97 05/20/21 22:00 36.4 C 78 18 170/86 H 100 05/20/21 21:39 98 05/20/21 14:00 36.8 C 78 18 168/85 H 99 Intake/Output Intake/Output: Intake & Output 05/18/21 05/19/21 05/20/21 05/21/21 23:59 23:59 23:59 23:59 Intake Total 2710 1520 2040 660 Output Total 600 2300 400 150 Balance 2110 -780 1640 510 Meds/Results Medications: Active Medications Generic Name Dose Route Start Last Admin Trade Name Freq PRN Reason Stop Dose Admin Acetaminophen 325 mg 05/17/21 12:18 Acetaminophen 325 Mg Tablet PO Q4H PRN Mild Pain (1-3) or Fever Hydrocodone Bitart/Acetaminophen 1 tab 05/17/21 12:17 05/21/21 09:28 Hydrocodone/Acetaminophen (*Crx) 7.5-325 Mg Tablet PO 1 tab Q4H PRN Administration Pain Rated 7-10 Amlodipine Besylate 5 mg 05/16/21 11:00 05/21/21 09:29 Amlodipine Besylate 5 Mg Tablet PO 5 mg DAILY DARWIN Administration Benzocaine 1 lozenge 05/13/21 12:40 05/17/21 12:04 Benzocaine/Menthol (*Bkc) 18 Ea Lozenge PO 1 lozenge PRN PRN Administration Sore Throat Calcium Carbonate 200 m
--- NOTE | 2021-05-21 11:25 | PM.IMPN ---
Progress Note: A&P Assessment and Plan (1) Acute respiratory failure: Code(s): J96.00 - Acute respiratory failure, unspecified whether with hypoxia or hypercapnia Status: Resolved Assessment and Plan: Resolved acute Respiratory failure secondary to status epilepticus. 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 Etiology of that is not fully clear. Likely from the sequela barium after being of dialysis for [address] was negative He has not had any additional episode of seizures EEG was done 05/09/2021, no evidence of ongoing seizure activity. Neurology is following the patient. We will continue [facility] Patient was informed to stop driving until he is seizure-free for 6 month, per regulations in [place]. (3) Encephalopathy acute: Code(s): G93.40 - Encephalopathy, unspecified Status: Acute Assessment and Plan: Resolved He had significant altered mental status at the time of presentation which seems to be postictal. -ammonia levels have normalized Head CT done post status epilepticus and intubation was unremarkable EEG done, report reviewed in neurology progress note from 05/10/2021. Pt seen by GI here see recommendations regarding liver cirrhosis. (4) Tongue laceration: Code(s): S01.512A - Laceration without foreign body of oral cavity, initial encounter Status: Acute Assessment and Plan: Patient bit his tongue during seizure, patient bled intermittently from his tongue laceration. His hemoglobin dropped to 6.9 on 05/11. He received PRBC transfusion during dialysis with improvement in his hemoglobin. (5) Anemia: Code(s): D64.9 - Anemia, unspecified Status: Acute Assessment and Plan: Severe anemia is likely multifactorial, in the setting of end-stage renal disease and previous tongue laceration with profuse bleeding. Patient was previously transfused 2 units PRBC and 2 units platelets on 05/07. He also received FFP on 05/06. Hemoglobin has drifted down to 6.9. He has received platelets and PRBC on 05/11/2021. He will receive platelets 05/12/2021. Continue erythropoiesis stimulating agents with hemodialysis. (6) ESRD needing dialysis: Code(s): N18.6 - End stage renal disease; Z99.2 - Dependence on renal dialysis Status: Chronic Assessment and Plan: noncompliant and missed dialysis for 3 weeks. He presented not in volume overload but significantly uremic and hyperkalemic hyperkalemia was temporally treated with medications in the ER and improved Patient was then dialyzed 05/06 was continued on dialysis since -hyperkalemia has resolved. Nephrology is following and continuation of dialysis as per nephrology service. -continue hemodialysis on a Sunday and Sunday per his regular schedule. Patient was educated about importance of compliance to his dialysis to avoid additional complications. (7) Hyperkalemia: Code(s): E87.5 - Hyperkalemia Status: Acute Assessment and Plan: Resolved after initial treatment with medications and later dialysis. Continue renal dialysis diet. (8) Hematoma: Code(s): T14.8XXA - Other injury of unspecified body region, initial encounter Status: Acute Assessment and Plan: Hematoma of the left cheek, sp drainage may need further drainage, pt is under plastics Dr Sol (9) Fall: Code(s): W19.XXXA - Unspecified fall, initial encounter Status: Acute Assessment and Plan: Imaging reviewed for injuries and shows last show maxillary soft tissue hematoma PT OT follow-up. Acute rehabilitation upon discharge would be desired. (10) Encephalopathy, hepatic: Code(s): K72.90 - Hepatic failure, unspecified without coma Status: Acute
[2021-05-21] MEDS: SODIUM CHLORIDE 0.9% IV 1,000 ML 100 ML IV CONT (13:35)
--- NOTE | 2021-05-21 15:08 | PCPTNOTE ---
attempted to see pt this pm for PT. pt leaving room for dialysis. will follow tomorrow.
[2021-05-21] MEDS: EPOETIN ALFA-EPBX 10,000 UNITS/ML VIAL 10000 UNITS IV PUSH (16:04)
[2021-05-21 18:18] LABS: Vancomycin Random 6.3 ug/mL (10-20)
[2021-05-21] MEDS: MELATONIN 3 MG TABLET PO (20:13)
[2021-05-22 06:00] VITALS: BP 143/73; PULSE 79; RESP 18; TEMP 37; O2SAT 96
[2021-05-22 07:25] LABS: Parathyroid Intact 216.3 pg/mL (7.5-53.5)
[2021-05-22 08:00] VITALS: PULSE 84; RESP 18; O2SAT 96
[2021-05-22] MEDS: HYDROcodone/acetaminophen (*CRX) 7.5-325 MG TABLET 1 TAB PO ×2 (10:20→18:02)
[2021-05-22] MEDS: levETIRAcetam 500 MG TABLET PO ×2 (10:20→20:56)
[2021-05-22] MEDS: amLODIPine BESYLATE 5 MG TABLET PO (10:20)
[2021-05-22 10:21] VITALS: PULSE 84
[2021-05-22] MEDS: nadoloL 20 MG TABLET PO (10:21)
[2021-05-22] MEDS: FOLIC ACID 1 MG TABLET PO (10:21)
[2021-05-22] MEDS: lisinopriL 20 MG TABLET PO (10:21)
[2021-05-22] MEDS: THIAMINE HCL 100 MG TABLET PO (10:21)
[2021-05-22] MEDS: rifAXIMin 550 MG TABLET PO ×2 (10:21→20:56)
[2021-05-22] MEDS: HYDROCORTISONE 1% 30 GM CREAM 1 APPLIC TOPICAL (10:22)
--- NOTE | 2021-05-22 13:25 | PM.PNNEP ---
Progress Note: A&P Assessment and Plan (1) ESRD needing dialysis: Code(s): N18.6 - End stage renal disease; Z99.2 - Dependence on renal dialysis Status: Chronic Assessment and Plan: HD tomorrow or Sunday (due to holiday schedule) follow electrolytes, volume status, and clearance (2) Alcoholic liver failure: Code(s): K70.40 - Alcoholic hepatic failure without coma Status: Acute Assessment and Plan: patient had not been taking lactulose prior to admission ammonia levels very high on presentation back on lactulose and ammonia levels are improved (3) Cutaneous abscess of left wrist: Code(s): L02.414 - Cutaneous abscess of left upper limb Status: Acute Assessment and Plan: Plastic Surgery following s/p I&D in OR (on 05/15/21) culture results noted on antibiotics (4) Encephalopathy, hepatic: Code(s): K72.90 - Hepatic failure, unspecified without coma Status: Acute Assessment and Plan: ammonia level is better mentation appears to be improving as well (5) Jugular vein thrombosis, right: Code(s): I82.890 - Acute embolism and thrombosis of other specified veins Status: Acute Assessment and Plan: no anticoagulation indicated since he has bleeding/bruises holding on new HD catheter placement given issues with platelets/INR (6) Coagulopathy: Code(s): D68.9 - Coagulation defect, unspecified Status: Acute Assessment and Plan: due to liver disease getting FFP as needed (7) Thrombocytopenia: Code(s): D69.6 - Thrombocytopenia, unspecified Status: Acute Assessment and Plan: due to increased reticular endothelial uptake getting platelets as needed (8) Erythropoietin deficiency anemia: Code(s): D63.1 - Anemia in chronic kidney disease Status: Acute Assessment and Plan: continue Epogen with dialysis follow trend of H/H PRBC transfusion with HD PRN (9) Renal osteodystrophy: Code(s): N25.0 - Renal osteodystrophy Status: Acute Assessment and Plan: follow calcium and phosphorus Will continue to follow. Subjective Date/time seen: 05/22/21 13:25 Tolerated dialysis yesterday without any issues or problems; no events overnight or earlier this morning; discharge planning for next week; no distress voiced on my visit with him today. Exam Narrative: General: WD/WN male in NAD Heart: normal S1 and S2; no rub Lungs: clear to auscultation Abdomen: soft, nontender, nondistended, positive bowel sounds Extremities: no cyanosis or clubbing; no edema; left hand wounds healing Skin: multiple ecchymoses that are healing Objective Data Vital Signs Vital Signs: Vital Signs Temp Pulse Resp BP Pulse Ox 05/22/21 10:21 84 05/22/21 08:00 84 18 96 05/22/21 06:00 37.0 C 79 18 143/73 H 96 05/21/21 22:00 36.8 C 79 18 144/81 H 97 05/21/21 17:50 36.6 C 85 18 148/83 H 05/21/21 17:40 86 154/85 H 05/21/21 17:20 88 150/85 H 05/21/21 17:00 86 165/93 H 05/21/21 16:45 82 170/91 H 05/21/21 16:30 85 165/88 H 05/21/21 16:15 82 176/104 H 05/21/21 16:00 79 170/97 H 05/21/21 15:45 82 143/85 H 05/21/21 15:30 73 144/89 H 05/21/21 15:15 74 172/93 H 05/21/21 15:00 75 166/96 H 05/21/21 14:45 72 161/96 H 05/21/21 14:30 75 168/88 H Intake/Output Intake/Output: Intake & Output 05/19/21 05/20/21 05/21/21 05/22/21 23:59 23:59 23:59 23:59 Intake Total 1520 2040 1390 1600 Output Total 2300 400 2650 Balance -780 1640 -1260 1600 Meds/Results Medications: Active Medications Generic Name Dose Route Start Last Admin Trade Name Freq PRN Reason Stop Dose Admin Acetaminophen 325 mg 05/17/21 12:18 Acetaminophen 325 Mg Tablet PO Q4H PRN Mild Pain (1-3) or Fever Hydrocodone Bitart/Acetaminophen 1 tab 05/17/21
--- NOTE | 2021-05-22 13:25 | P.PNNP_ITS ---
Progress Note: A&P Assessment and Plan (1) ESRD needing dialysis: Code(s): N18.6 - End stage renal disease; Z99.2 - Dependence on renal dialysis Status: Chronic Assessment and Plan: * HD tomorrow or Sunday (due to holiday schedule) * follow electrolytes, volume status, and clearance (2) Alcoholic liver failure: Code(s): K70.40 - Alcoholic hepatic failure without coma Status: Acute Assessment and Plan: * patient had not been taking lactulose prior to admission * ammonia levels very high on presentation * back on lactulose and ammonia levels are improved (3) Cutaneous abscess of left wrist: Code(s): L02.414 - Cutaneous abscess of left upper limb Status: Acute Assessment and Plan: * Plastic Surgery following * s/p I&D in OR (on 05/15/21) * culture results noted * on antibiotics (4) Encephalopathy, hepatic: Code(s): K72.90 - Hepatic failure, unspecified without coma Status: Acute Assessment and Plan: * ammonia level is better * mentation appears to be improving as well (5) Jugular vein thrombosis, right: Code(s): I82.890 - Acute embolism and thrombosis of other specified veins Status: Acute Assessment and Plan: * no anticoagulation indicated since he has bleeding/bruises * holding on new HD catheter placement given issues with platelets/INR (6) Coagulopathy: Code(s): D68.9 - Coagulation defect, unspecified Status: Acute Assessment and Plan: * due to liver disease * getting FFP as needed (7) Thrombocytopenia: Code(s): D69.6 - Thrombocytopenia, unspecified Status: Acute Assessment and Plan: * due to increased reticular endothelial uptake * getting platelets as needed (8) Erythropoietin deficiency anemia: Code(s): D63.1 - Anemia in chronic kidney disease Status: Acute Assessment and Plan: * continue Epogen with dialysis * follow trend of H/H * PRBC transfusion with HD PRN (9) Renal osteodystrophy: Code(s): N25.0 - Renal osteodystrophy Status: Acute Assessment and Plan: * follow calcium and phosphorus Will continue to follow. Subjective Date/time seen: 05/22/21 13:25 Tolerated dialysis yesterday without any issues or problems; no events overnight or earlier this morning; discharge planning for next week; no distress voiced on my visit with him today. Exam Narrative: General: WD/WN male in NAD Heart: normal S1 and S2; no rub Lungs: clear to auscultation Abdomen: soft, nontender, nondistended, positive bowel sounds Extremities: no cyanosis or clubbing; no edema; left hand wounds healing Skin: multiple ecchymoses that are healing Objective Data Vital Signs Vital Signs: Vital Signs Temp Pulse Resp BP Pulse Ox 05/22/21 10:21 84 05/22/21 08:00 84 18 96 05/22/21 06:00 37.0 C 79 18 143/73 H 96 05/21/21 22:00 36.8 C 79 18 144/81 H 97 05/21/21 17:50 36.6 C 85 18 148/83 H 05/21/21 17:40 86 154/85 H 05/21/21 17:20 88 150/85 H 05/21/21 17:00 86 165/93 H 05/21/21 16:45 82 170/91 H 05/21/21 16:30 85 165/88 H 05/21/21 16:15 82 176/104 H 05/21/21 16:00 79 170/97 H 05/21/21 15:45 82 143/85 H 05/21/21 15:30 73
--- NOTE | 2021-05-22 14:11 | PM.IMPN ---
Progress Note: A&P Assessment and Plan (1) Acute respiratory failure: Code(s): J96.00 - Acute respiratory failure, unspecified whether with hypoxia or hypercapnia Status: Resolved Assessment and Plan: Resolved acute respiratory failure secondary to status epilepticus. (2) Convulsive status epilepticus: Code(s): G40.901 - Epilepsy, unspecified, not intractable, with status epilepticus Status: Resolved Assessment and Plan: Plan as before: Patient had multiple seizures post dialysis on 05/07/2021. Etiology of that is not fully clear. Pt has been off dialysis for [address] was negative He has not had any additional episode of seizures EEG was done 05/09/2021, no evidence of ongoing seizure activity. Neurology is following the patient. We will continue [facility] Patient was informed to stop driving until he is seizure-free for 6 month, per regulations in [place]. (3) Encephalopathy acute: Code(s): G93.40 - Encephalopathy, unspecified Status: Resolved Assessment and Plan: Resolved He had significant altered mental status at the time of presentation which seems to be postictal. Head CT done post status epilepticus and intubation was unremarkable EEG done, report reviewed in neurology progress note from 05/10/2021. Pt seen by GI here see recommendations regarding liver cirrhosis. (4) Tongue laceration: Code(s): S01.512A - Laceration without foreign body of oral cavity, initial encounter Status: Resolved Assessment and Plan: Patient bit his tongue during seizure, patient bled intermittently from his tongue laceration. His hemoglobin dropped to 6.9 on 05/11. He received PRBC transfusion during dialysis with improvement in his hemoglobin. (5) Anemia: Code(s): D64.9 - Anemia, unspecified Status: Acute Assessment and Plan: Severe anemia is likely multifactorial, in the setting of end-stage renal disease and previous tongue laceration with profuse bleeding. Patient was previously transfused 2 units PRBC and 2 units platelets on 05/07. He also received FFP on 05/06. Hemoglobin has drifted down to 6.9. He has received platelets and PRBC on 05/11/2021. He will receive platelets 05/12/2021. Continue erythropoiesis stimulating agents with hemodialysis. Hb is 8.5 today. (6) ESRD needing dialysis: Code(s): N18.6 - End stage renal disease; Z99.2 - Dependence on renal dialysis Status: Chronic Assessment and Plan: Plan as before. Noncompliant and missed dialysis for 3 weeks. He presented not in volume overload but significantly uremic and hyperkalemic hyperkalemia was temporally treated with medications in the ER and improved Patient was then dialyzed 05/06 was continued on dialysis since -hyperkalemia has resolved. Nephrology is following and continuation of dialysis as per nephrology service. -continue hemodialysis on a Sunday and Sunday per his regular schedule. Patient was educated about importance of compliance to his dialysis to avoid additional complications. (7) Hyperkalemia: Code(s): E87.5 - Hyperkalemia Status: Acute Assessment and Plan: Resolved after initial treatment with medications and later dialysis. Continue renal dialysis diet. (8) Hematoma: Code(s): T14.8XXA - Other injury of unspecified body region, initial encounter Status: Acute Assessment and Plan: Hematoma of the left cheek, sp drainage may need further drainage, pt is resolving now (9) Fall: Code(s): W19.XXXA - Unspecified fall, initial encounter Status: Acute Assessment and Plan: Imaging reviewed for injuries and shows last show maxillary soft tissue hematoma PT OT follow-up. Pt deciding on home v rehab on dischrage (10) Encephalopathy, hepatic: Code(s): K72.90 - Hepatic failure, unspecified without coma Status: Acute Assessment and Plan: Im
[2021-05-22 14:38] VITALS: BP 146/72; PULSE 76; RESP 16; TEMP 36.7; O2SAT 98
[2021-05-22] MEDS: diphenhydrAMINE HCl CAP 25 MG CAPSULE PO (18:02)
--- NOTE | 2021-05-22 18:05 | WPDPN ---
Progress Note: A&P Assessment and Plan (1) Facial hematoma: Code(s): S00.83XA - Contusion of other part of head, initial encounter Status: Acute Assessment and Plan: Continue to observe. (2) Cutaneous abscess of left wrist: Code(s): L02.414 - Cutaneous abscess of left upper limb Status: Acute Assessment and Plan: Simple dressing changes until secondary healing is complete. Estimate 3 weeks. OK for discharge from my standpoint. Will need F/U with Dr Ta in 10 days Time Spent With Patient Time with patient: less than 15 minutes Subjective Date/time seen: 05/22/21 18:05 Abscess of left dorsal wrist is resolving without complication. Excellent wrist and digital ROM. Serous drainage. Hematoma of left cheek is resolving. Apparently it drained spontaneously a little today and is smaller than yesterday. No infection. Objective Data Vital Signs Vital Signs: Vital Signs - 24 hr 05/21/21 22:00 05/22/21 06:00 05/22/21 08:00 Temperature 98.2 F 98.6 F Pulse Rate 79 79 84 Respiratory Rate 18 18 18 Blood Pressure 144/81 H 143/73 H Pulse Oximetry 97 96 96 05/22/21 10:21 05/22/21 14:38 Temperature 98.1 F Pulse Rate 84 76 Respiratory Rate 16 Blood Pressure 146/72 H Pulse Oximetry 98 Intake/Output Intake/Output: Intake & Output 05/19/21 05/20/21 05/21/21 05/22/21 23:59 23:59 23:59 23:59 Intake Total 1520 2040 1390 1650 Output Total 2300 400 2650 Balance -780 1640 -1260 1650 Meds/Results Medications: Active Medications Generic Name Dose Route Start Last Admin Trade Name Freq PRN Reason Stop Dose Admin Acetaminophen 325 mg 05/17/21 12:18 Acetaminophen 325 Mg Tablet PO Q4H PRN Mild Pain (1-3) or Fever Hydrocodone Bitart/Acetaminophen 1 tab 05/17/21 12:17 05/22/21 18:02 Hydrocodone/Acetaminophen (*Crx) 7.5-325 Mg Tablet PO 1 tab Q4H PRN Administration Pain Rated 7-10 Amlodipine Besylate 5 mg 05/16/21 11:00 05/22/21 10:20 Amlodipine Besylate 5 Mg Tablet PO 5 mg DAILY DARWIN Administration Benzocaine 1 lozenge 05/13/21 12:40 05/17/21 12:04 Benzocaine/Menthol (*Bkc) 18 Ea Lozenge PO 1 lozenge PRN PRN Administration Sore Throat Calcium Carbonate 200 mg 05/06/21 10:41 Calcium Carbonate (Tums) 500 Mg (200 Mg Elemental) PO Q6H PRN Indigestion Diphenhydramine HCl 25 mg 05/19/21 07:51 05/22/21 18:02 Diphenhydramine Hcl Cap 25 Mg Capsule PO 25 mg TID PRN Administration Itching Folic Acid 1 mg 05/15/21 09:00 05/22/21 10:21 Folic Acid 1 Mg Tablet PO 1 mg DAILY DARWIN Administration Hydrocortisone 1 applic 05/20/21 21:00 05/22/21 10:22 Hydrocortisone 1% 30 Gm Cream TOPICAL 1 applic Q12HR DARWIN Administration Albumin Human 50 mls @ 999 mls/hr 05/10/21 07:05 Albutein IVPB 06/09/21 07:04 Q10M PRN HYPOTENSION Piperacillin Sod/Tazobactam Sod 2.25 gm in 50 mls @ 100 mls/hr 05/14/21 14:00 05/22/21 15:14 Zosyn 2.25 Gm/D5w 50 Ml IVPB 100 mls/hr Q12H DARWIN Administration Piperacillin Sod/Tazobactam 50 mls @ 50 mls/hr 05/14/21 16:00 05/21/21 18:04 Sod 0.75 gm/ Dextrose IVPB 50 mls/hr [id number] DARWIN Administration Vancomycin HCl 1,250 mg in 250 mls @ 200 mls/hr 05/14/21 11:23 Vancomycin 1,250 Mg/D5w 250 Ml IVPB PRN PRN vancomycin protocol Lactulose 20 gm 05/22/21 12:18 Lactulose 20 Gm/30 Ml Udc PO TID PRN Constipation Levetiracetam 500 mg 05/15/21 21:00 05/22/21 10:20 Levetiracetam 500 Mg Tablet PO 500 mg Q12HR DARWIN Administration Lisinopril 20 mg 05/16/21 11:00 05/22/21 10:21 Lisinopril 20 Mg Tablet PO 20 mg DAILY DARWIN Administration Melatonin 3 mg 05/13/21 21:00 05/21/21 20:13 Melatonin 3 Mg Tablet PO 3 mg HS DARWIN Administration Morphine Sulfate 1 mg 05/13/21 16:51 05/16/21 17:39 Morphine Sulfate (*Crx) 2 Mg/Ml Inj IV PUSH 1 mg Q4H PRN Administration
[2021-05-22] MEDS: MELATONIN 3 MG TABLET PO (20:56)
[2021-05-22 22:00] VITALS: BP 152/76; PULSE 73; RESP 18; TEMP 36.9; O2SAT 98
[2021-05-23] MEDS: HYDROcodone/acetaminophen (*CRX) 7.5-325 MG TABLET 1 TAB PO ×3 (01:14→20:45)
[2021-05-23 06:00] VITALS: BP 167/84; PULSE 52; RESP 18; TEMP 36.2; O2SAT 90
[2021-05-23 06:18] LABS: Estimated CRCL calculation 16 ml/min; Estimated Glomerular Filt Rate 10
[2021-05-23 07:54] LABS: Alanine Aminotransferase 17 U/L (4-50); Albumin Level 3.1 g/dL (3.5-5.1); Alkaline Phosphatase 341 U/L (38-126); Anion Gap 12 mmol/L (8-16); Aspartate Amino Transferase 41 U/L (17-59); Bilirubin,Total 2.3 mg/dL (0.2-1.3); Blood Urea Nitrogen 32 mg/dL (9-20); Calcium 8.9 mg/dL (8.4-10.2); Carbon Dioxide 21 mmol/L (22-30); Chloride 99 mmol/L (98-107); Estimated CRCL calculation 16 ml/min; Estimated Glomerular Filt Rate 10; Glucose 91 mg/dL (65-110); Potassium 4.4 mmol/L (3.4-5.0); Sodium 132 mmol/L (137-145)
[2021-05-23 08:27] LABS: Hematocrit 27.7 % (42.0-52.0); Hemoglobin 8.8 g/dL (14.0-18.0); Immature Platelet Fraction Pct 3.1 % (0.9-11.2); Mean Corpuscular HGB Conc 31.8 g/dl (32-36); Mean Corpuscular Hemoglobin 31.2 pg (26-34); Mean Corpuscular Volume 98.2 fl (80-100); Mean Platelet Volume 13.1 fl (7.4-10.4); Platelet Count Result 47 k/mm3 (150-375); Red Blood Count 2.82 M/mm3 (4.6-6.20); Red Cell Distribution Width 15.9 % (11.5-14.5); White Blood Count 2.6 K/mm3 (4.5-10.0)
[2021-05-23 08:41] LABS: INR 1.6; Prothrombin Time 18.6 Seconds (11.1-14.7)
--- NOTE | 2021-05-23 09:58 | PCNWS ---
Weekly nutritional screen. Patient is tolerating current diet with adequate intake. No weight loss reported. No nutritional needs at this time.
[2021-05-23] MEDS: levETIRAcetam 500 MG TABLET PO ×2 (10:29→20:45)
[2021-05-23] MEDS: rifAXIMin 550 MG TABLET PO ×2 (10:29→20:45)
[2021-05-23] MEDS: amLODIPine BESYLATE 5 MG TABLET PO (10:29)
[2021-05-23 10:30] VITALS: PULSE 72
[2021-05-23] MEDS: nadoloL 20 MG TABLET PO (10:30)
[2021-05-23] MEDS: THIAMINE HCL 100 MG TABLET PO (10:30)
[2021-05-23] MEDS: lisinopriL 20 MG TABLET PO (10:30)
[2021-05-23] MEDS: FOLIC ACID 1 MG TABLET PO (10:31)
--- NOTE | 2021-05-23 10:54 | PM.IMPN ---
Progress Note: A&P Assessment and Plan (1) Acute respiratory failure: Code(s): J96.00 - Acute respiratory failure, unspecified whether with hypoxia or hypercapnia Status: Resolved Assessment and Plan: Secondary to status epilepticus. He was intubated for airway protection secondary to seizure activity. He was successfully extubated on 05/09/2021. He remains on room air with adequate O2 sats. Continue incentive spirometry (2) Convulsive status epilepticus: Code(s): G40.901 - Epilepsy, unspecified, not intractable, with status epilepticus Status: Resolved Assessment and Plan: Patient had multiple seizures post dialysis on 05/07/2021. Etiology not entirely clear. He had been off of dialysis for 3 weeks prior to that dialysis session proceeding his seizure. Head CT with no acute findings. EEG completed on 05/09/2021 with no evidence of ongoing seizure activity. Appreciate Neurology consultation. Continue with Keppra 500 mg b.i.d.. No further seizure activity. No driving until seizure-free for 6 month period. (3) Encephalopathy acute: Code(s): G93.40 - Encephalopathy, unspecified Status: Resolved Assessment and Plan: Resolved. Significant alteration mental status at presentation, likely due to postictal state. Also possible component of hepatic encephalopathy. Ammonia levels elevated on presentation but have since normalized. He is A&O x4 on my encounter. Continue with lactulose with goal 2-3 bowel movements daily. (4) Anemia: Code(s): D64.9 - Anemia, unspecified Status: Acute Assessment and Plan: Severe anemia is likely multifactorial, in the setting of end-stage renal disease and tongue laceration with profuse bleeding. Hemoglobin down to 6.2 at presentation. He has received a total of 4 units PRBC. He has also received 3 units of platelets and 1 unit of FFP. Hemoglobin remaining stable since 05/11/2021 at time of last transfusion. Continue to monitor H&H closely. Continue epoetin with dialysis. (5) ESRD needing dialysis: Code(s): N18.6 - End stage renal disease; Z99.2 - Dependence on renal dialysis Status: Chronic Assessment and Plan: Patient had been noncompliant and missed dialysis for a total of 3 weeks. He went for dialysis on 05/06 at which time he did have a seizure and presented for this admission. No evidence of volume overload on presentation but he was significantly uremic and hyperkalemic. Potassium level stable now. BUN stable now. Continue with dialysis as scheduled. Appreciate nephrology consultation for continuation of dialysis. (6) Cellulitis and abscess of hand: Code(s): L03.119 - Cellulitis of unspecified part of limb; L02.519 - Cutaneous abscess of unspecified hand Status: Acute Assessment and Plan: Presented with swelling of left wrist. CTA demonstrated superficial abscess. Venous Doppler without DVT. Arterial Doppler of radial and ulnar arteries unobtainable bilaterally. He has been seen in consultation by plastic surgeon, Dr. Ta. Underwent incision and drainage of abscess of the left dorsal wrist with excision of necrotic tissue. Continue vancomycin and Zosyn. Wound culture with growth of MRSA. (7) Hematoma: Code(s): T14.8XXA - Other injury of unspecified body region, initial encounter Status: Acute Assessment and Plan: Zygomatic hematoma of the left cheek. Underwent needle aspiration of hematoma on 05/18/[address] Ta. Continue local wound care. (8) Cirrhosis: Code(s): K74.60 - Unspecified cirrhosis of liver Status: Acute Assessment and Plan: Previously on list for liver transplant but no longer a candidate due to relapse of alcohol use. He has been seen in consultation by gastronenterolgoy. Continue with 2 g sodium diet. Continue nadolol, lactulose, Xifaxin. 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
[2021-05-23 14:00] VITALS: BP 151/89; PULSE 73; RESP 18; TEMP 36.6; O2SAT 99
--- NOTE | 2021-05-23 14:05 | PCNSR ---
On 05/23/21, the student, Xiomara Mesa, provided care and completed [facility] documentation on this patient. I have reviewed the student's documentation and agree with the findings.
--- NOTE | 2021-05-23 15:40 | P.PNNP_ITS ---
Progress Note: A&P Assessment and Plan (1) ESRD needing dialysis: Code(s): N18.6 - End stage renal disease; Z99.2 - Dependence on renal dialysis Status: Chronic Assessment and Plan: * HD tomorrow and likely again on Sunday (due to holiday schedule) * follow electrolytes, volume status, and clearance (2) Alcoholic liver failure: Code(s): K70.40 - Alcoholic hepatic failure without coma Status: Acute Assessment and Plan: * patient had not been taking lactulose prior to admission * ammonia levels very high on presentation * back on lactulose and ammonia levels are improved (3) Cutaneous abscess of left wrist: Code(s): L02.414 - Cutaneous abscess of left upper limb Status: Acute Assessment and Plan: * Plastic Surgery following * s/p I&D in OR (on 05/15/21) * culture results noted * on antibiotics (4) Encephalopathy, hepatic: Code(s): K72.90 - Hepatic failure, unspecified without coma Status: Acute Assessment and Plan: * ammonia level is better * mentation appears to be improving as well (5) Jugular vein thrombosis, right: Code(s): I82.890 - Acute embolism and thrombosis of other specified veins Status: Acute Assessment and Plan: * no anticoagulation indicated since he has bleeding/bruises * holding on new HD catheter placement given issues with platelets/INR (6) Coagulopathy: Code(s): D68.9 - Coagulation defect, unspecified Status: Acute Assessment and Plan: * due to liver disease * getting FFP as needed (7) Thrombocytopenia: Code(s): D69.6 - Thrombocytopenia, unspecified Status: Acute Assessment and Plan: * due to increased reticular endothelial uptake * getting platelets as needed (8) Erythropoietin deficiency anemia: Code(s): D63.1 - Anemia in chronic kidney disease Status: Acute Assessment and Plan: * continue Epogen with dialysis * follow trend of H/H * PRBC transfusion with HD PRN (9) Renal osteodystrophy: Code(s): N25.0 - Renal osteodystrophy Status: Acute Assessment and Plan: * follow calcium and phosphorus Will continue to follow. Subjective Date/time seen: 05/23/21 15:40 Appears to be making slow and steady progress with recovery; working with PT/OT as tolerated; pain management (with regard to facial injuries and recent left wrist surgery) appears satisfactory; no issues/events overnight or earlier this AM; no apparent distress to report. Exam Narrative: General: WD/WN male in NAD Heart: normal S1 and S2; no rub Lungs: clear to auscultation Abdomen: soft, nontender, nondistended, positive bowel sounds Extremities: no cyanosis or clubbing; no edema; left hand wounds healing Skin: multiple ecchymoses/bruises (resolving) Objective Data Vital Signs Vital Signs: Vital Signs Temp Pulse Resp BP Pulse Ox 05/23/21 14:00 36.6 C 73 18 151/89 H 99 05/23/21 10:30 72 05/23/21 06:00 36.2 C L 52 L 18 167/84 H 90 05/22/21 22:00 36.9 C 73 18 152/76 H 98 Intake/Output Intake/Output: Intake & Output 05/20/21 05/21/21 05/22/21 05/23/21 23:59 23:59 23:59 23:59 Intake Total 2040 1390 2560 1520 Output Total 400 2650 Balance 1640 -1260 2560 1520
--- NOTE | 2021-05-23 15:40 | PM.PNNEP ---
Progress Note: A&P Assessment and Plan (1) ESRD needing dialysis: Code(s): N18.6 - End stage renal disease; Z99.2 - Dependence on renal dialysis Status: Chronic Assessment and Plan: HD tomorrow and likely again on Sunday (due to holiday schedule) follow electrolytes, volume status, and clearance (2) Alcoholic liver failure: Code(s): K70.40 - Alcoholic hepatic failure without coma Status: Acute Assessment and Plan: patient had not been taking lactulose prior to admission ammonia levels very high on presentation back on lactulose and ammonia levels are improved (3) Cutaneous abscess of left wrist: Code(s): L02.414 - Cutaneous abscess of left upper limb Status: Acute Assessment and Plan: Plastic Surgery following s/p I&D in OR (on 05/15/21) culture results noted on antibiotics (4) Encephalopathy, hepatic: Code(s): K72.90 - Hepatic failure, unspecified without coma Status: Acute Assessment and Plan: ammonia level is better mentation appears to be improving as well (5) Jugular vein thrombosis, right: Code(s): I82.890 - Acute embolism and thrombosis of other specified veins Status: Acute Assessment and Plan: no anticoagulation indicated since he has bleeding/bruises holding on new HD catheter placement given issues with platelets/INR (6) Coagulopathy: Code(s): D68.9 - Coagulation defect, unspecified Status: Acute Assessment and Plan: due to liver disease getting FFP as needed (7) Thrombocytopenia: Code(s): D69.6 - Thrombocytopenia, unspecified Status: Acute Assessment and Plan: due to increased reticular endothelial uptake getting platelets as needed (8) Erythropoietin deficiency anemia: Code(s): D63.1 - Anemia in chronic kidney disease Status: Acute Assessment and Plan: continue Epogen with dialysis follow trend of H/H PRBC transfusion with HD PRN (9) Renal osteodystrophy: Code(s): N25.0 - Renal osteodystrophy Status: Acute Assessment and Plan: follow calcium and phosphorus Will continue to follow. Subjective Date/time seen: 05/23/21 15:40 Appears to be making slow and steady progress with recovery; working with PT/OT as tolerated; pain management (with regard to facial injuries and recent left wrist surgery) appears satisfactory; no issues/events overnight or earlier this AM; no apparent distress to report. Exam Narrative: General: WD/WN male in NAD Heart: normal S1 and S2; no rub Lungs: clear to auscultation Abdomen: soft, nontender, nondistended, positive bowel sounds Extremities: no cyanosis or clubbing; no edema; left hand wounds healing Skin: multiple ecchymoses/bruises (resolving) Objective Data Vital Signs Vital Signs: Vital Signs Temp Pulse Resp BP Pulse Ox 05/23/21 14:00 36.6 C 73 18 151/89 H 99 05/23/21 10:30 72 05/23/21 06:00 36.2 C L 52 L 18 167/84 H 90 05/22/21 22:00 36.9 C 73 18 152/76 H 98 Intake/Output Intake/Output: Intake & Output 05/20/21 05/21/21 05/22/21 05/23/21 23:59 23:59 23:59 23:59 Intake Total 2040 1390 2560 1520 Output Total 400 2650 Balance 1640 -1260 2560 1520 Meds/Results Medications: Active Medications Generic Name Dose Route Start Last Admin Trade Name Freq PRN Reason Stop Dose Admin Acetaminophen 325 mg 05/17/21 12:18 Acetaminophen 325 Mg Tablet PO Q4H PRN Mild Pain (1-3) or Fever Hydrocodone Bitart/Acetaminophen 1 tab 05/17/21 12:17 05/23/21 10:29 Hydrocodone/Acetaminophen (*Crx) 7.5-325 Mg Tablet PO 1 tab Q4H PRN Administration Pain Rated 7-10 Amlodipine Besylate 5 mg 05/16/21 11:00 05/23/21 10:29 Amlodipine Besylate 5 Mg Tablet PO 5 mg DAILY DARWIN Administration Benzocaine 1 lozenge 05/13/21 12:40 05/17/21 12:04 Benzocaine/Menthol (*Bkc) 1
[2021-05-23] MEDS: MELATONIN 3 MG TABLET PO (20:45)
[2021-05-23 21:52] VITALS: BP 171/81; PULSE 64; RESP 18; TEMP 36.4; O2SAT 99
[2021-05-24] VITALS (21 sets, daily range): BP systolic 145–182; BP diastolic 75–97; PULSE 66–83; RESP 16–18; TEMP 35.6–37; O2SAT 97–99
[2021-05-24 06:26] LABS: Hemoglobin 8.7 g/dL (14.0-18.0); Immature Platelet Fraction Pct 2.9 % (0.9-11.2); Mean Corpuscular HGB Conc 32.2 g/dl (32-36); Mean Corpuscular Hemoglobin 31.1 pg (26-34); Mean Corpuscular Volume 96.4 fl (80-100); Platelet Count Result 46 k/mm3 (150-375); Red Cell Distribution Width 16.1 % (11.5-14.5); White Blood Count 2.7 K/mm3 (4.5-10.0)
[2021-05-24 06:40] LABS: Alanine Aminotransferase 16 U/L (4-50); Albumin Level 3.1 g/dL (3.5-5.1); Alkaline Phosphatase 271 U/L (38-126); Anion Gap 11 mmol/L (8-16); Aspartate Amino Transferase 36 U/L (17-59); Bilirubin,Total 2.2 mg/dL (0.2-1.3); Blood Urea Nitrogen 40 mg/dL (9-20); Calcium 8.6 mg/dL (8.4-10.2); Carbon Dioxide 25 mmol/L (22-30); Chloride 94 mmol/L (98-107); Estimated CRCL calculation 13 ml/min; Estimated Glomerular Filt Rate 8; Glucose 130 mg/dL (65-110); Potassium 4.1 mmol/L (3.4-5.0); Sodium 130 mmol/L (137-145)
[2021-05-24] MEDS: nadoloL 20 MG TABLET PO (08:55)
[2021-05-24] MEDS: amLODIPine BESYLATE 5 MG TABLET PO (08:55)
[2021-05-24] MEDS: lisinopriL 20 MG TABLET PO (08:56)
[2021-05-24] MEDS: HYDROCORTISONE 1% 30 GM CREAM 1 APPLIC TOPICAL ×2 (08:56→20:32)
[2021-05-24] MEDS: THIAMINE HCL 100 MG TABLET PO (08:56)
[2021-05-24] MEDS: FOLIC ACID 1 MG TABLET PO (08:56)
[2021-05-24] MEDS: levETIRAcetam 500 MG TABLET PO ×2 (08:56→20:31)
[2021-05-24] MEDS: rifAXIMin 550 MG TABLET PO ×2 (08:57→20:31)
--- NOTE | 2021-05-24 11:39 | P.PNNP_ITS ---
Progress Note: A&P Assessment and Plan (1) ESRD needing dialysis: Code(s): N18.6 - End stage renal disease; Z99.2 - Dependence on renal dialysis Status: Chronic Assessment and Plan: * HD today and likely again on Sunday (due to holiday schedule - if remains hospitalized) * follow electrolytes, volume status, and clearance (2) Alcoholic liver failure: Code(s): K70.40 - Alcoholic hepatic failure without coma Status: Acute Assessment and Plan: * patient had not been taking lactulose prior to admission * ammonia levels very high on presentation * back on lactulose and ammonia levels are improved (3) Cutaneous abscess of left wrist: Code(s): L02.414 - Cutaneous abscess of left upper limb Status: Acute Assessment and Plan: * Plastic Surgery following * s/p I&D in OR (on 05/15/21) * culture results noted * on antibiotics (4) Encephalopathy, hepatic: Code(s): K72.90 - Hepatic failure, unspecified without coma Status: Acute Assessment and Plan: * ammonia level is better * mentation appears to be improving as well (5) Jugular vein thrombosis, right: Code(s): I82.890 - Acute embolism and thrombosis of other specified veins Status: Acute Assessment and Plan: * no anticoagulation indicated since he has bleeding/bruises * holding on new HD catheter placement given issues with platelets/INR (6) Coagulopathy: Code(s): D68.9 - Coagulation defect, unspecified Status: Acute Assessment and Plan: * due to liver disease * getting FFP as needed (7) Thrombocytopenia: Code(s): D69.6 - Thrombocytopenia, unspecified Status: Acute Assessment and Plan: * due to increased reticular endothelial uptake * getting platelets as needed (8) Erythropoietin deficiency anemia: Code(s): D63.1 - Anemia in chronic kidney disease Status: Acute Assessment and Plan: * continue Epogen with dialysis * follow trend of H/H * PRBC transfusion with HD PRN (9) Renal osteodystrophy: Code(s): N25.0 - Renal osteodystrophy Status: Acute Assessment and Plan: * follow calcium and phosphorus Will continue to follow. Subjective Date/time seen: 05/24/21 11:39 Seems to be doing quite well at the time of my visit; no apparent issues or problems voiced; due for dialysis this afternoon as well as tomorrow given Thanksgiving dialysis schedule; working reasonably well with therapy; no events overnight or earlier this AM. Exam Narrative: General: WD/WN male in NAD Heart: normal S1 and S2; no rub Lungs: clear to auscultation Abdomen: soft, nontender, nondistended, positive bowel sounds Extremities: no cyanosis or clubbing; no edema; left hand wounds healing Skin: multiple ecchymoses/bruises (slowly resolving) Objective Data Vital Signs Vital Signs: Vital Signs Temp Pulse Resp BP Pulse Ox 05/24/21 08:55 75 05/24/21 06:00 36.1 C L 69 18 157/82 H 99 05/23/21 21:52 36.4 C 64 18 171/81 H 99 05/23/21 14:00 36.6 C 73 18 151/89 H 99 Intake/Output Intake/Output: Intake & Output 05/21/21 05/22/21 05/23/21 05/24/21 23:59 23:59 23:59 23:59 Intake Total 1390 2560 1570 350 Output Total 2650 Balance -1260 256
--- NOTE | 2021-05-24 11:39 | PM.PNNEP ---
Progress Note: A&P Assessment and Plan (1) ESRD needing dialysis: Code(s): N18.6 - End stage renal disease; Z99.2 - Dependence on renal dialysis Status: Chronic Assessment and Plan: HD today and likely again on Sunday (due to holiday schedule - if remains hospitalized) follow electrolytes, volume status, and clearance (2) Alcoholic liver failure: Code(s): K70.40 - Alcoholic hepatic failure without coma Status: Acute Assessment and Plan: patient had not been taking lactulose prior to admission ammonia levels very high on presentation back on lactulose and ammonia levels are improved (3) Cutaneous abscess of left wrist: Code(s): L02.414 - Cutaneous abscess of left upper limb Status: Acute Assessment and Plan: Plastic Surgery following s/p I&D in OR (on 05/15/21) culture results noted on antibiotics (4) Encephalopathy, hepatic: Code(s): K72.90 - Hepatic failure, unspecified without coma Status: Acute Assessment and Plan: ammonia level is better mentation appears to be improving as well (5) Jugular vein thrombosis, right: Code(s): I82.890 - Acute embolism and thrombosis of other specified veins Status: Acute Assessment and Plan: no anticoagulation indicated since he has bleeding/bruises holding on new HD catheter placement given issues with platelets/INR (6) Coagulopathy: Code(s): D68.9 - Coagulation defect, unspecified Status: Acute Assessment and Plan: due to liver disease getting FFP as needed (7) Thrombocytopenia: Code(s): D69.6 - Thrombocytopenia, unspecified Status: Acute Assessment and Plan: due to increased reticular endothelial uptake getting platelets as needed (8) Erythropoietin deficiency anemia: Code(s): D63.1 - Anemia in chronic kidney disease Status: Acute Assessment and Plan: continue Epogen with dialysis follow trend of H/H PRBC transfusion with HD PRN (9) Renal osteodystrophy: Code(s): N25.0 - Renal osteodystrophy Status: Acute Assessment and Plan: follow calcium and phosphorus Will continue to follow. Subjective Date/time seen: 05/24/21 11:39 Seems to be doing quite well at the time of my visit; no apparent issues or problems voiced; due for dialysis this afternoon as well as tomorrow given ving dialysis schedule; working reasonably well with therapy; no events overnight or earlier this AM. Exam Narrative: General: WD/WN male in NAD Heart: normal S1 and S2; no rub Lungs: clear to auscultation Abdomen: soft, nontender, nondistended, positive bowel sounds Extremities: no cyanosis or clubbing; no edema; left hand wounds healing Skin: multiple ecchymoses/bruises (slowly resolving) Objective Data Vital Signs Vital Signs: Vital Signs Temp Pulse Resp BP Pulse Ox 05/24/21 08:55 75 05/24/21 06:00 36.1 C L 69 18 157/82 H 99 05/23/21 21:52 36.4 C 64 18 171/81 H 99 05/23/21 14:00 36.6 C 73 18 151/89 H 99 Intake/Output Intake/Output: Intake & Output 05/21/21 05/22/21 05/23/21 05/24/21 23:59 23:59 23:59 23:59 Intake Total 1390 2560 1570 350 Output Total 2650 Balance -1260 2560 1570 350 Meds/Results Medications: Active Medications Generic Name Dose Route Start Last Admin Trade Name Freq PRN Reason Stop Dose Admin Acetaminophen 325 mg 05/17/21 12:18 Acetaminophen 325 Mg Tablet PO Q4H PRN Mild Pain (1-3) or Fever Hydrocodone Bitart/Acetaminophen 1 tab 05/17/21 12:17 05/23/21 20:45 Hydrocodone/Acetaminophen (*Crx) 7.5-325 Mg Tablet PO 1 tab Q4H PRN Administration Pain Rated 7-10 Amlodipine Besylate 5 mg 05/16/21 11:00 05/24/21 08:55 Amlodipine Besylate 5 Mg Tablet PO 5 mg DAILY DARWIN Administration Benzocaine 1 lozenge 05/13/21 12:40 05/17/21 12:04 Benzocaine/Menthol
--- NOTE | 2021-05-24 18:48 | PM.IMPN ---
Progress Note: A&P Assessment and Plan (1) Acute respiratory failure: Code(s): J96.00 - Acute respiratory failure, unspecified whether with hypoxia or hypercapnia Status: Resolved Assessment and Plan: Secondary to status epilepticus. He was intubated for airway protection secondary to seizure activity. He was successfully extubated on 05/09/2021. He remains on room air with adequate O2 sats. Continue incentive spirometry (2) Convulsive status epilepticus: Code(s): G40.901 - Epilepsy, unspecified, not intractable, with status epilepticus Status: Resolved Assessment and Plan: Patient had multiple seizures post dialysis on 05/07/2021. Etiology not entirely clear. He had been off of dialysis for 3 weeks prior to that dialysis session proceeding his seizure. Head CT with no acute findings. EEG completed on 05/09/2021 with no evidence of ongoing seizure activity. Appreciate Neurology consultation. Continue with Keppra 500 mg b.i.d.. No further seizure activity. No driving until seizure-free for 6 month period. (3) Encephalopathy acute: Code(s): G93.40 - Encephalopathy, unspecified Status: Resolved Assessment and Plan: Resolved. Significant alteration mental status at presentation, likely due to postictal state. Also possible component of hepatic encephalopathy. Ammonia levels elevated on presentation but have since normalized. He is A&O x4 on my encounter. Continue with lactulose with goal 2-3 bowel movements daily. (4) Anemia: Code(s): D64.9 - Anemia, unspecified Status: Acute Assessment and Plan: Severe anemia is likely multifactorial, in the setting of end-stage renal disease and tongue laceration with profuse bleeding. Hemoglobin down to 6.2 at presentation. He has received a total of 4 units PRBC. He has also received 3 units of platelets and 1 unit of FFP. Hemoglobin remaining stable since 05/11/2021 at time of last transfusion. Continue to monitor H&H closely. Continue epoetin with dialysis. (5) ESRD needing dialysis: Code(s): N18.6 - End stage renal disease; Z99.2 - Dependence on renal dialysis Status: Chronic Assessment and Plan: Patient had missed dialysis for a total of 3 weeks due to poor compliance. He went for dialysis on 05/06 at which time he did have a seizure and presented for this admission. No evidence of volume overload on presentation but he was significantly uremic and hyperkalemic. Potassium level stable now. BUN significantly improved. Continue with dialysis as scheduled. Appreciate nephrology consultation for continuation of dialysis. Getting dialysis today and likely again tomorrow due to scheduling around . (6) Cellulitis and abscess of hand: Code(s): L03.119 - Cellulitis of unspecified part of limb; L02.519 - Cutaneous abscess of unspecified hand Status: Acute Assessment and Plan: Presented with swelling of left wrist. CTA demonstrated superficial abscess. Venous Doppler without DVT. Arterial Doppler of radial and ulnar arteries unobtainable bilaterally. He has been seen in consultation by plastic surgeon, Dr. Ta. Underwent incision and drainage of abscess of the left dorsal wrist with excision of necrotic tissue. Continue vancomycin. Zosyn discontinued today. Wound culture with growth of MRSA. Per previous provider conversation with infectious disease specialist, Dr. Kat, recommendations for 10 days of IV Vancomycin. Discussed with pharmacy, he will receive a trough tonight. Hopeful discharge tomorrow following completion of antibiotics. He needs to follow up with Dr. Ta in 10 days for evaluation of abscess. (7) Hematoma: Code(s): T14.8XXA - Other injury of unspecified body region, initial encounter Status: Acute Assessment and Plan: Zygomatic hematoma of the left cheek. Underwent needle aspiration of hematoma on
[2021-05-24] MEDS: MELATONIN 3 MG TABLET PO (20:31)
[2021-05-24] MEDS: HYDROcodone/acetaminophen (*CRX) 7.5-325 MG TABLET 1 TAB PO (20:35)
[2021-05-25] VITALS (14 sets, daily range): BP systolic 151–187; BP diastolic 39–98; PULSE 71–84; RESP 16; TEMP 36–37; O2SAT 99
[2021-05-25 06:43] LABS: Hematocrit 24.2 % (42.0-52.0); Hemoglobin 7.8 g/dL (14.0-18.0); Immature Platelet Fraction Pct 3.3 % (0.9-11.2); Mean Corpuscular HGB Conc 32.2 g/dl (32-36); Mean Corpuscular Hemoglobin 31.1 pg (26-34); Mean Corpuscular Volume 96.4 fl (80-100); Mean Platelet Volume 13.6 fl (7.4-10.4); Platelet Count Result 34 k/mm3 (150-375); Red Blood Count 2.51 M/mm3 (4.6-6.20); Red Cell Distribution Width 16.9 % (11.5-14.5)
[2021-05-25 06:54] LABS: White Blood Count 1.9 K/mm3 (4.5-10.0)
[2021-05-25 07:11] LABS: Anion Gap 8 mmol/L (8-16); Blood Urea Nitrogen 25 mg/dL (9-20); Calcium 8.3 mg/dL (8.4-10.2); Carbon Dioxide 25 mmol/L (22-30); Chloride 103 mmol/L (98-107); Estimated CRCL calculation 18 ml/min; Estimated Glomerular Filt Rate 12; Glucose 125 mg/dL (65-110); Potassium 4.6 mmol/L (3.4-5.0); Sodium 136 mmol/L (137-145)
[2021-05-25] MEDS: HYDROCORTISONE 1% 30 GM CREAM 1 APPLIC TOPICAL (08:53)
[2021-05-25] MEDS: nadoloL 20 MG TABLET PO (08:53)
[2021-05-25] MEDS: lisinopriL 20 MG TABLET PO (08:54)
[2021-05-25] MEDS: levETIRAcetam 500 MG TABLET PO (08:54)
[2021-05-25] MEDS: FOLIC ACID 1 MG TABLET PO (08:54)
[2021-05-25] MEDS: rifAXIMin 550 MG TABLET PO (08:54)
[2021-05-25] MEDS: THIAMINE HCL 100 MG TABLET PO (08:54)
[2021-05-25] MEDS: amLODIPine BESYLATE 5 MG TABLET PO (08:54)
[2021-05-25] MEDS: HYDROcodone/acetaminophen (*CRX) 7.5-325 MG TABLET 1 TAB PO (08:58)
--- NOTE | 2021-05-25 09:34 | PM.IMPN ---
Progress Note: A&P Assessment and Plan (1) Acute respiratory failure: Code(s): J96.00 - Acute respiratory failure, unspecified whether with hypoxia or hypercapnia Status: Resolved Assessment and Plan: Resolved. It was secondary to status epilepticus. He was intubated for airway protection secondary to seizure activity. He was successfully extubated on 05/09/2021. He remains on room air with adequate O2 sats. Continue incentive spirometry (2) Convulsive status epilepticus: Code(s): G40.901 - Epilepsy, unspecified, not intractable, with status epilepticus Status: Resolved Assessment and Plan: Patient had multiple seizures post dialysis on 05/07/2021. Etiology not entirely clear. He had been off of dialysis for 3 weeks prior to that dialysis session proceeding his seizure. Head CT with no acute findings. EEG completed on 05/09/2021 with no evidence of ongoing seizure activity. Appreciate Neurology consultation. Continue with Keppra 500 mg b.i.d.. No further seizure activity. No driving until seizure-free for a 6- months period. (3) Encephalopathy acute: Code(s): G93.40 - Encephalopathy, unspecified Status: Resolved Assessment and Plan: Resolved. Significant alteration mental status at presentation, likely due to postictal state. Also possible component of hepatic encephalopathy. Ammonia levels elevated on presentation but have since normalized. He is A&O x4 on my encounter. Continue with lactulose with goal 2-3 bowel movements daily. (4) Anemia: Code(s): D64.9 - Anemia, unspecified Status: Acute Assessment and Plan: Severe anemia is likely multifactorial, in the setting of end-stage renal disease and tongue laceration with profuse bleeding. Hemoglobin down to 6.2 at presentation. He has received a total of 4 units PRBC. He has also received 3 units of platelets and 1 unit of FFP. Hemoglobin remaining stable since 05/11/2021 at time of last transfusion. Continue to monitor H&H closely. Continue epoetin with dialysis. (5) ESRD needing dialysis: Code(s): N18.6 - End stage renal disease; Z99.2 - Dependence on renal dialysis Status: Chronic Assessment and Plan: Patient had missed dialysis for a total of 3 weeks due to poor compliance. He went for dialysis on 05/06 at which time he did have a seizure and presented for this admission. No evidence of volume overload on presentation but he was significantly uremic and hyperkalemic. Potassium level stable now. BUN significantly improved. Continue with dialysis as scheduled. Appreciate nephrology consultation for continuation of dialysis. Getting dialysis today . Patient was educated about importance of compliance to hemodialysis. (6) Cellulitis and abscess of hand: Code(s): L03.119 - Cellulitis of unspecified part of limb; L02.519 - Cutaneous abscess of unspecified hand Status: Acute Assessment and Plan: Presented with swelling of left wrist. CTA demonstrated superficial abscess. Venous Doppler without DVT. Arterial Doppler of radial and ulnar arteries unobtainable bilaterally. He has been seen in consultation by plastic surgeon, Dr. Ta. Underwent incision and drainage of abscess of the left dorsal wrist with excision of necrotic tissue. Continue vancomycin. Zosyn discontinued today. Wound culture with growth of MRSA. Per previous provider conversation with infectious disease specialist, Dr. Kat, recommendations for 10 days of IV Vancomycin. Discussed with pharmacy, he will receive a trough tonight. Hopeful discharge tomorrow following completion of antibiotics. He needs to follow up with Dr. Ta in 10 days for evaluation of abscess. (7) Hematoma: Code(s): T14.8XXA - Other injury of unspecified body region, initial encounter Status: Acute Assessment and Plan: Zygomatic hematoma of the left cheek. Underwent needle aspir
--- NOTE | 2021-05-25 14:05 | PCPTNOTE ---
Attempted to see pt for PT this date however pt was on his way to dialysis. Will attempt at a later date/time.
--- NOTE | 2021-05-25 15:15 | P.PNNP_ITS ---
Progress Note: A&P Assessment and Plan (1) ESRD needing dialysis: Code(s): N18.6 - End stage renal disease; Z99.2 - Dependence on renal dialysis Status: Chronic Assessment and Plan: * HD today and plan next treatment on Sunday (in hospital versus outpatient dialysis clinic) * follow electrolytes, volume status, and clearance (2) Alcoholic liver failure: Code(s): K70.40 - Alcoholic hepatic failure without coma Status: Acute Assessment and Plan: * patient had not been taking lactulose prior to admission * ammonia levels was very high on presentation * back on lactulose and ammonia levels are improved (3) Cutaneous abscess of left wrist: Code(s): L02.414 - Cutaneous abscess of left upper limb Status: Acute Assessment and Plan: * Plastic Surgery following * s/p I&D in OR (on 05/15/21) * culture results noted * on antibiotics (4) Encephalopathy, hepatic: Code(s): K72.90 - Hepatic failure, unspecified without coma Status: Acute Assessment and Plan: * ammonia level is better * mentation appears to be improving as well (5) Jugular vein thrombosis, right: Code(s): I82.890 - Acute embolism and thrombosis of other specified veins Status: Acute Assessment and Plan: * no anticoagulation indicated since he has bleeding/bruises * holding on new HD catheter placement given issues with platelets/INR (6) Coagulopathy: Code(s): D68.9 - Coagulation defect, unspecified Status: Acute Assessment and Plan: * due to liver disease * getting FFP as needed (7) Thrombocytopenia: Code(s): D69.6 - Thrombocytopenia, unspecified Status: Acute Assessment and Plan: * due to increased reticular endothelial uptake * getting platelets as needed (8) Erythropoietin deficiency anemia: Code(s): D63.1 - Anemia in chronic kidney disease Status: Acute Assessment and Plan: * continue Epogen with dialysis * follow trend of H/H * PRBC transfusion with HD PRN (9) Renal osteodystrophy: Code(s): N25.0 - Renal osteodystrophy Status: Acute Assessment and Plan: * follow calcium and phosphorus Will continue to follow. Subjective Date/time seen: 05/25/21 15:15 Tolerating dialysis at the time of my visit (seen on HD at 3:00pm); no apparent distress voiced currently; feels reasonably well; hoping for possible discharge later today if possible; no events overnight or earlier this morning. Exam 2 Narrative: General: WD/WN male in NAD Heart: normal S1 and S2; no rub Lungs: clear to auscultation Abdomen: soft, nontender, nondistended, positive bowel sounds Extremities: no cyanosis or clubbing; no edema; left hand wounds healing Skin: multiple ecchymoses/bruises (improvement noted) Objective Data Vital Signs Vital Signs: Vital Signs Temp Pulse Resp BP Pulse Ox 05/25/21 15:10 72 161/90 H 05/25/21 14:50 36.9 C 71 16 173/39 H 05/25/21 14:38 72 156/89 H 05/25/21 14:18 74 174/95 H 05/25/21 14:00 36.5 C 75 16 154/75 H 99 05/25/21 08:53 82 05/24/21 20:51 97 05/24/21 18:10 37.0 C 82 16 172/84 H 05/24/21 18:09 37.0 C 82 16 172/84 H 05/24/21 18:00 81 164/88 H 05/24/21 17:45 83 172/93 H
--- NOTE | 2021-05-25 15:15 | PM.PNNEP ---
Progress Note: A&P Assessment and Plan (1) ESRD needing dialysis: Code(s): N18.6 - End stage renal disease; Z99.2 - Dependence on renal dialysis Status: Chronic Assessment and Plan: HD today and plan next treatment on Sunday (in hospital versus outpatient dialysis clinic) follow electrolytes, volume status, and clearance (2) Alcoholic liver failure: Code(s): K70.40 - Alcoholic hepatic failure without coma Status: Acute Assessment and Plan: patient had not been taking lactulose prior to admission ammonia levels was very high on presentation back on lactulose and ammonia levels are improved (3) Cutaneous abscess of left wrist: Code(s): L02.414 - Cutaneous abscess of left upper limb Status: Acute Assessment and Plan: Plastic Surgery following s/p I&D in OR (on 05/15/21) culture results noted on antibiotics (4) Encephalopathy, hepatic: Code(s): K72.90 - Hepatic failure, unspecified without coma Status: Acute Assessment and Plan: ammonia level is better mentation appears to be improving as well (5) Jugular vein thrombosis, right: Code(s): I82.890 - Acute embolism and thrombosis of other specified veins Status: Acute Assessment and Plan: no anticoagulation indicated since he has bleeding/bruises holding on new HD catheter placement given issues with platelets/INR (6) Coagulopathy: Code(s): D68.9 - Coagulation defect, unspecified Status: Acute Assessment and Plan: due to liver disease getting FFP as needed (7) Thrombocytopenia: Code(s): D69.6 - Thrombocytopenia, unspecified Status: Acute Assessment and Plan: due to increased reticular endothelial uptake getting platelets as needed (8) Erythropoietin deficiency anemia: Code(s): D63.1 - Anemia in chronic kidney disease Status: Acute Assessment and Plan: continue Epogen with dialysis follow trend of H/H PRBC transfusion with HD PRN (9) Renal osteodystrophy: Code(s): N25.0 - Renal osteodystrophy Status: Acute Assessment and Plan: follow calcium and phosphorus Will continue to follow. Subjective Date/time seen: 05/25/21 15:15 Tolerating dialysis at the time of my visit (seen on HD at 3:00pm); no apparent distress voiced currently; feels reasonably well; hoping for possible discharge later today if possible; no events overnight or earlier this morning. Exam Narrative: General: WD/WN male in NAD Heart: normal S1 and S2; no rub Lungs: clear to auscultation Abdomen: soft, nontender, nondistended, positive bowel sounds Extremities: no cyanosis or clubbing; no edema; left hand wounds healing Skin: multiple ecchymoses/bruises (improvement noted) Objective Data Vital Signs Vital Signs: Vital Signs Temp Pulse Resp BP Pulse Ox 05/25/21 15:10 72 161/90 H 05/25/21 14:50 36.9 C 71 16 173/39 H 05/25/21 14:38 72 156/89 H 05/25/21 14:18 74 174/95 H 05/25/21 14:00 36.5 C 75 16 154/75 H 99 05/25/21 08:53 82 05/24/21 20:51 97 05/24/21 18:10 37.0 C 82 16 172/84 H 05/24/21 18:09 37.0 C 82 16 172/84 H 05/24/21 18:00 81 164/88 H 05/24/21 17:45 83 172/93 H 05/24/21 17:30 83 182/97 H 05/24/21 17:15 80 161/93 H 05/24/21 17:00 77 167/88 H 05/24/21 16:45 77 153/87 H 05/24/21 16:30 73 145/83 H 05/24/21 16:15 72 157/82 H 05/24/21 16:00 74 148/82 H Intake/Output Intake/Output: Intake & Output 05/22/21 05/23/21 05/24/21 05/25/21 23:59 23:59 23:59 23:59 Intake Total 2560 1570 850 342 Output Total 1400 Balance 2560 1570 -550 342 Meds/Results Medications: Active Medications Generic Name Dose Route Start Last Admin Trade Name Freq PRN Reason Stop Dose Admin Acetaminophen 325 mg 05/17/21 12:18 Acetaminophen 325 Mg Tablet PO
[2021-05-25] MEDS: EPOETIN ALFA-EPBX 10,000 UNITS/ML VIAL 10000 UNITS IV PUSH (16:01)
[2021-05-25 17:58] LABS: Basophils Percent Auto 0.5 % (0.2-1.2); Eosinophils Absolute Auto 0.1 K/mm3 (0-0.3); Eosinophils Percent Auto 3.7 % (0-4.4); Hemoglobin 8.7 g/dL (14.0-18.0); Immature Granulocyte Absolute 0.01 K/mm3 (0.00-0.031); Immature Granulocyte Percent A 0.5 % (0-0.5); Immature Platelet Fraction Pct 2.6 % (0.9-11.2); Lymphocytes Absolute Auto 0.53 K/mm3 (0.9-3.2); Mean Corpuscular HGB Conc 31.1 g/dl (32-36); Mean Corpuscular Hemoglobin 31.1 pg (26-34); Mean Platelet Volume 11.2 fl (7.4-10.4); Monocytes Absolute Auto 0.3 K/mm3 (0.1-0.6); Monocytes Percent Auto 13.8 % (2.6-8.5); Neutrophils Percent Auto 53.5 % (45.5-73.1); Platelet Count Result 42 k/mm3 (150-375); Red Cell Distribution Width 17.1 % (11.5-14.5)
[2021-05-25 18:05] LABS: White Blood Count 1.9 K/mm3 (4.5-10.0)
[2021-05-25 18:22] LABS: Lymphocytes Absolute Manual 0.53 K/mm3 (1.1-4.5); Monocytes Absolute Manual 0.26 K/mm3 (0.1-0.90)
[2021-05-25 18:23] LABS: Basophils Absolute Manual 0.01 K/mm3 (0.0-0.1)
[2021-05-25 18:24] LABS: Eosinophils Absolute Manual 0.05 K/mm3 (0.02-0.5)
[2021-05-25 18:25] LABS: Monocytes Percent Manual 14 % (3-9); Neutrophils Percent Manual 54 % (46-73); Total Cells Counted 100
[2021-05-25 18:26] LABS: Basophils Percent Manual 1 % (0-1); Eosinophils Percent Manual 3 % (0-4); Platelet Estimate Decreased (Adequate)
--- NOTE | 2021-05-26 18:40 | PM.DS ---
DS: Admitting Diagnosis Discharge Date 05/25/21 Admitting Diagnosis (1) ESRD needing dialysis: N18.6 - End stage renal disease; Z99.2 - Dependence on renal dialysis (2) Hyperkalemia: Code(s): E87.5 - Hyperkalemia (3) Hematoma: (4) Fall: (5) Encephalopathy, hepatic: (6) Coagulopathy: D68.9 - Coagulation defect, unspecified (7) Thrombocytopenia: (8) Jugular vein thrombosis, right: (9) Nausea & vomiting: (10) Pancreatitis: (11) Cirrhosis: Code Status - Full Code DS: Discharge Diagnosis Discharge Diagnosis (1) Acute respiratory failure: Code(s): J96.00 - Acute respiratory failure, unspecified whether with hypoxia or hypercapnia Status: Resolved Assessment and Plan: Resolved. It was secondary to status epilepticus. He was intubated for airway protection secondary to seizure activity. He was successfully extubated on 05/09/2021. He remains on room air with adequate O2 sats. Continue incentive spirometry (2) Convulsive status epilepticus: Code(s): G40.901 - Epilepsy, unspecified, not intractable, with status epilepticus Status: Resolved Assessment and Plan: Patient had multiple seizures post dialysis on 05/07/2021. Etiology not entirely clear. He had been off of dialysis for 3 weeks prior to that dialysis session proceeding his seizure. Head CT with no acute findings. EEG completed on 05/09/2021 with no evidence of ongoing seizure activity. Appreciate Neurology consultation. Continue with Keppra 500 mg b.i.d.. No further seizure activity. No driving until seizure-free for a 6- months period. (3) Encephalopathy acute: Code(s): G93.40 - Encephalopathy, unspecified Status: Resolved Assessment and Plan: Resolved. Significant alteration mental status at presentation, likely due to postictal state. Also possible component of hepatic encephalopathy. Ammonia levels elevated on presentation but have since normalized. He is A&O x4 on my encounter. Continue with lactulose with goal 2-3 bowel movements daily. (4) Anemia: Code(s): D64.9 - Anemia, unspecified Status: Acute Assessment and Plan: Severe anemia is likely multifactorial, in the setting of end-stage renal disease and tongue laceration with profuse bleeding. Hemoglobin down to 6.2 at presentation. He has received a total of 4 units PRBC. He has also received 3 units of platelets and 1 unit of FFP. Hemoglobin remaining stable since 05/11/2021 at time of last transfusion. Continue to monitor H&H closely. Continue epoetin with dialysis. (5) ESRD needing dialysis: Code(s): N18.6 - End stage renal disease; Z99.2 - Dependence on renal dialysis Status: Chronic Assessment and Plan: Patient had missed dialysis for a total of 3 weeks due to poor compliance. He went for dialysis on 05/06 at which time he did have a seizure and presented for this admission. No evidence of volume overload on presentation but he was significantly uremic and hyperkalemic. Potassium level stable now. BUN significantly improved. Continue with dialysis as scheduled. Appreciate nephrology consultation for continuation of dialysis. Getting dialysis today . Patient was educated about importance of compliance to hemodialysis. (6) Cellulitis and abscess of hand: Code(s): L03.119 - Cellulitis of unspecified part of limb; L02.519 - Cutaneous abscess of unspecified hand Status: Acute Assessment and Plan: Presented with swelling of left wrist. CTA demonstrated superficial abscess. Venous Doppler without DVT. Arterial Doppler of radial and ulnar arteries unobtainable bilaterally. He has been seen in consultation by plastic surgeon, Dr. Ta. Underwent incision and drainage of abscess of the left dorsal wrist with excision of necrotic tissue. Continue vancomycin. Zosyn discontinued today. Wound culture with growth of MRSA. Per previous provider conversation with infec
== END 2021-05-25 18:50 | disposition home or self-care (01) | DRG 673 ==
LOC: ANHED 06:22 → ANHICU 11:55 → ANH3MEDSUR 05-11 15:12 → ANHICU 05-27 11:55
PROVIDERS: Family Medicine; Internal Medicine; Internal Medicine Critical Care Medicine; Internal Medicine Hematology & Oncology; Internal Medicine Nephrology; Plastic Surgery; Admitting Provider Internal Medicine; Emergency Provider Emergency Medicine; PCP Family Medicine; Visit Provider Physician Assistant
PROC: 0JBH0ZZ Excision of Left Lower Arm Subcutaneous Tissue and Fascia, Open Approach (ICD-10-PCS; principal; 2021-05-15 09:30)
DX: I12.0 Hypertensive chronic kidney disease with stage 5 chronic kidney disease or end stage renal disease (principal); N18.6 End stage renal disease; K85.90 Acute pancreatitis without necrosis or infection, unspecified; J96.00 Acute respiratory failure, unspecified whether with hypoxia or hypercapnia; I82.C11 Acute embolism and thrombosis of right internal jugular vein; D68.9 Coagulation defect, unspecified; I96 Gangrene, not elsewhere classified; L02.414 Cutaneous abscess of left upper limb; B95.62 Methicillin resistant Staphylococcus aureus infection as the cause of diseases classified elsewhere; K70.40 Alcoholic hepatic failure without coma; G40.901 Epilepsy, unspecified, not intractable, with status epilepticus; S01.552A Open bite of oral cavity, initial encounter; X58.XXXA Exposure to other specified factors, initial encounter; D69.6 Thrombocytopenia, unspecified; D63.1 Anemia in chronic kidney disease; N25.0 Renal osteodystrophy; S00.83XA Contusion of other part of head, initial encounter; W19.XXXA Unspecified fall, initial encounter; E87.5 Hyperkalemia; K70.30 Alcoholic cirrhosis of liver without ascites; F10.10 Alcohol abuse, uncomplicated; F41.8 Other specified anxiety disorders; R01.1 Cardiac murmur, unspecified; R11.2 Nausea with vomiting, unspecified; Z99.2 Dependence on renal dialysis; Z91.15 Patient's noncompliance with renal dialysis
CPT/HCPCS: 31500; 36415; 36430; 36600; 70450; 70486; 71045; 71260; 72125; 73120; 73206; 74177; 80048; 80053; 80202; 80307; 82140; 82375; 82565; 82607; 82728; 82746; 82805; 82948; 83050; 83540; 83550; 83605; 83690; 83735; 83970; 84100; 84484; 85025; 85027; 85055; 85384; 85610; 85730; 86022; 86140; 86705; 86706; 86850; 86900; 86901; 86920; 87040; 87070; 87147; 87186; 87205; 87340; 92610; 93005; 93306; 93923; 93971; 94002; 94003; 94640; 95816; 96361; 96374; 96375; 97110; 97116; 97162; 97165; 97168; 97530; 97535; 99285; A9270; C9113; G0257; J1200; J1644; J1815; J1953; J2060; J2250; J2270; J2405; J2543; J2704; J3010; J3370; J7030; J7050; J7120; P9016; P9017; P9034; P9047; Q5105; Q9967

== ENCOUNTER 2024-03-12 10:14 | Emergency (ER) | payer MEDICARE, BC, SELFPAY ==
--- NOTE | ~2024-03-12 | CT_ITS ---
Non-contrast Head CT History: Altered mental status COMPARISON: 05/06/2021 Technique: Axial non-contrast imaging of the brain was performed. Dose reduction technique was used on this scan by utilizing automated exposure control and iterative reconstruction technique. The dose -length product (DLP) was 605.33 mGy-cm. Findings: There is no evidence of intracranial hemorrhage, mass lesion, or acute infarct. Brain par enchyma appears normal. The ventricles and subarachnoid spaces are normal in size. The calvarium ap pears normal. The visualized paranasal sinuses and mastoid air cells are clear. Impression: No significant abnormality seen. Reviewed, dictated and finalized at location . Impression: No significant abnormality seen.
--- NOTE | ~2024-03-12 | XR_ITS ---
EXAMINATION: XR chest 1V portable DATE: 03/12/2024 12:35 INDICATION: Altered mental status. TECHNIQUE: A single frontal view of the chest was obtained on 2 radiographs. COMPARISON: Chest single view 05/13/2021 FINDINGS: There is no pneumonia, pleural effusion, or pneumothorax. The heart size is normal. There i s a vascular stent in left axilla. IMPRESSION: 1. No acute cardiopulmonary disease. Reviewed, dictated and finalized at location A.
[2024-03-12 10:15] VITALS: BP 124/74; PULSE 68; RESP 16; TEMP 36.8; O2SAT 98
[2024-03-12 11:28] VITALS: BP 148/69; PULSE 55; RESP 11; O2SAT 100
[2024-03-12 12:01] VITALS: BP 155/70; PULSE 56; RESP 17; O2SAT 98
--- NOTE | 2024-03-12 12:22 | ECG_ITS ---
Test Date: 2024-03-12 12:50:43 Measurements Intervals [place] Rate: 56 P: 59 SD: 252 QRS: 21 QRSD: 104 T: 51 QT: 486 QTc: 472 Interpretive Statements SINUS BRADYCARDIA WITH FIRST DEGREE AV BLOCK RSR' IN V1 OR V2, RIGHT VCD OR RVH MINIMAL Q WAVES- ANTEROLAT/HIGH LAT LEADS BORDERLINE ECG No previous ECG available for comparison Electronically Signed On 03-12-2024 12:54:05 CDT by Refugio Cano D.O.
[2024-03-12] MEDS: SODIUM CHLORIDE 0.9% IV 500 ML 999 ML IV CONT (12:30)
[2024-03-12 12:32] VITALS: BP 143/72
[2024-03-12 12:45] LABS: Basophils Percent Auto 0.7 % (0.2-1.2); Eosinophils Absolute Auto 0.1 K/mm3 (0-0.3); Eosinophils Percent Auto 3.2 % (0-4.4); Hematocrit 36.3 % (42.0-52.0); Hemoglobin 12.6 g/dL (14.0-18.0); Immature Platelet Fraction Pct 5.3 % (0.9-11.2); Lymphocytes Absolute Auto 0.57 K/mm3 (0.9-3.2); Lymphocytes Percent Auto 20.1 % (18.3-44.2); Mean Corpuscular HGB Conc 34.7 g/dl (32-36); Mean Corpuscular Hemoglobin 32.8 pg (26-34); Mean Corpuscular Volume 94.5 fl (80-100); Mean Platelet Volume 10.9 fl (7.4-10.4); Monocytes Absolute Auto 0.3 K/mm3 (0.1-0.6); Monocytes Percent Auto 10.6 % (2.6-8.5); Neutrophils Absolute Auto 1.9 K/mm3 (1.3-6.7); Neutrophils Percent Auto 65.4 % (45.5-73.1); Platelet Count Result 26 k/mm3 (150-375); Red Blood Count 3.84 M/mm3 (4.6-6.20); Red Cell Distribution Width 13.7 % (11.5-14.5); White Blood Count 2.8 K/mm3 (4.5-10.0)
[2024-03-12 12:54] LABS: Alveolar/Arterial O2 Gradient 22.8 mmHg; Base Excess ABG 3.3 mEq/l (+/-2.0); Fractional Inspired Oxygen 21 %; HCO3 ABG 25.9 mEq/l (22.0-26.0); INR 1.5; Oxygen Content ABG 17.1 %vol (16.0-22.0); Oxygen Saturation ABG 97.5 % (95.0-100.0); Oxyhemoglobin 95.4 % THb (90.0-100.0); PCO2 ABG 32.8 mmHg (35.0-45.0); PO2 ABG 87.7 mmHg (80.0-100.0); PO2 FiO2 Ratio Arterial Blood 4.18 %; Prothrombin Time 18.5 Seconds (11.1-14.7); Total Hemoglobin 12.7 g/dL (12.0-18.0)
[2024-03-12 12:55] LABS: Partial Thromboplastin Time 38.3 Seconds (22.3-36.8)
[2024-03-12 12:56] LABS: pH ABG 7.515 (7.350-7.450)
[2024-03-12 12:57] LABS: Device ROOM AIR; Site Drawn RIGHT RADIAL
[2024-03-12 13:01] VITALS: BP 138/63; O2SAT 98
[2024-03-12 13:02] LABS: Alanine Aminotransferase 16 U/L (6-50); Albumin Level 4.2 g/dL (3.5-5.1); Alkaline Phosphatase 115 U/L (38-126); Anion Gap 14 mmol/L (4-12); Aspartate Amino Transferase 22 U/L (17-59); Bilirubin,Total 1.5 mg/dL (0.2-1.3); Blood Urea Nitrogen 42 mg/dL (9-20); Calcium 9.8 mg/dL (8.4-10.2); Carbon Dioxide 27 mmol/L (22-30); Chloride 95 mmol/L (98-107); Estimated CRCL calculation 10 ml/min; Estimated Glomerular Filt Rate 7; Glucose 94 mg/dL (65-110); Potassium 4.7 mmol/L (3.4-5.0); Sodium 136 mmol/L (137-145)
--- NOTE | 2024-03-12 14:50 | ED.GENADULT ---
HPI - General Adult General Chief complaint: Altered Mental Status Stated complaint: stroke like symptoms Time Seen by Provider: 03/12/24 11:31 History of Present Illness HPI narrative: Patient is a 58-year-old male who presents ER with concerns for acute alteration mental status. Patient did finish his full course of dialysis when they were waking him up they felt like he was weak in his right arm and had some slurred speech they sent him here. Patient is awake alert orient x3 though he does appear little bit drowsy. Has no complaints arm weakness. He does not recall how much fluid they top of him. Denies fevers or chills or sweats. He has no arm drift. He has little shaking his left arm was able to perform rapid alternating movements and [id number] testing. Related Data Home Medications Medication Instructions Recorded Confirmed sildenafil 50 mg tablet 50 mg PO PRN PRN Sexual Activity 05/06/21 02/21/24 hydralazine 10 mg tablet 10 mg PO TID 02/21/24 02/21/24 levetiracetam 750 mg tablet 750 mg PO Q12H 02/21/24 02/21/24 sevelamer carbonate 800 mg tablet 800 mg PO TID 02/21/24 02/21/24 Allergies Allergy/AdvReac Type Severity Reaction Status Date / Time No Known Allergies Allergy Unknown Verified 03/12/24 12:07 Review of Systems Review of Systems: All systems reviewed & are unremarkable except as noted in HPI and below Constitutional: Constitutional: Reports no additional constitutional complaints ENT: Reports system reviewed and no additional complaints, except as documented Cardiovascular: Cardiovascular: Reports no additional cardiovascular complaints Respiratory: Respiratory: Reports no additional respiratory complaints Gastrointestinal: Gastrointestinal: Reports no additional gastrointestinal complaints Musculoskeletal: Musculoskeletal: Reports no additional musculoskeletal complaints Integumentary/Breasts: Skin/Breast: Reports system reviewed and no additional complaints, except as docu Neurologic: Reports system reviewed and no additional complaints, except as documented PMFSH Past Medical History Medical History (Updated 03/12/24 @ 15:08 by Malachi Carbajal MD) Acute respiratory failure Alcoholic liver failure Cirrhosis Cirrhosis, alcoholic Coagulopathy Encephalopathy, hepatic 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 ESRD needing dialysis Facial hematoma Pancytopenia Renal osteodystrophy Seizure Thrombocytopenia Surgical History Surgical History (Updated 02/21/24 @ 08:19 by Verenice Mayorga CMA) H/O cataract removal with insertion of prosthetic lens History of vasectomy Status post biopsy of kidney Family History Family History (Updated 02/21/24 @ 08:19 by Verenice Mayorga CMA) Father Colon cancer Dementia Social History Social History (Updated 02/21/24 @ 08:29 by Verenice Mayorga CMA) Smoking status: Never smoker Alcohol intake: current Drinks per week: 3 Substance use: never Do You Feel Safe in your Home?: Yes Lack of Transportation: No Lack of Food: Never True Current Housing: I Have Housing Concerned About Future Housing: No Difficulty Paying Gas/Electric Bills: No Difficulty Paying for Meds: No Currently Unemployed: No Education: Master's Degree or Higher Difficulty w/ Childcare or Family Care: No Spiritual care concerns: No Exam Narrative: GENERAL: Well-appearing, well-nourished, and in no acute distress. HEAD: Normocephalic, atraumatic. ENT: Mucous membranes moist. NECK: Supple. CHEST: Clear to auscultation. No respiratory distress. HEART: Regular rate and rhythm. Normal peripheral pulses. ABDOMEN: Soft, nontender, nondistended. EXTREMITIES: Normal range of motion. No edema. SKIN: Warm, dry, no rash. NEURO: No focal deficits. Normal finger-nose and [id number] testing. No upper lower extremity drift. No facial droop or slurred speech/expressive aphasia. Alert and o
[2024-03-12 15:22] VITALS: BP 151/67; PULSE 56; RESP 16; TEMP 36.6; O2SAT 97
== END 2024-03-12 15:22 | disposition home or self-care (01) ==
PROVIDERS: Emergency Provider Emergency Medicine; PCP Internal Medicine
DX: R53.1 Weakness (principal); N18.6 End stage renal disease
CPT/HCPCS: 36415; 36600; 70450; 71045; 80053; 82805; 85025; 85055; 85610; 85730; 93005; 96360; 99284; J7040

== ENCOUNTER 2024-06-27 10:26 | Emergency (ER) | payer MEDICARE, SELFPAY ==
[2024-06-27] VITALS (14 sets, daily range): BP systolic 118–136; BP diastolic 58–68; PULSE 59–66; RESP 10–13; TEMP 36.3–36.6; O2SAT 98–100
--- NOTE | ~2024-06-27 | XR_ITS ---
EXAMINATION: XR knee RT 3V DATE: 06/27/2024 11:44 INDICATION: Right knee pain. TECHNIQUE: 3 views of right knee were obtained. COMPARISON: Right knee radiographs 07/22/2014 FINDINGS: Alignment is normal. No fracture. There is moderate osteoarthritis of medial compartment an d mild osteoarthritis of lateral compartment. There is a small knee joint effusion. IMPRESSION: 1. Moderate right knee osteoarthritis. 2. Small right knee joint effusion. Reviewed, dictated and finalized at location [facility]
--- NOTE | 2024-06-27 10:42 | ECG_ITS ---
Test Date: 2024-06-27 10:37:40 Measurements Intervals [place] Rate: 58 P: 76 [place]: 263 QRS: 31 QRSD: 113 T: 21 QT: 484 QTc: 476 Interpretive Statements SINUS BRADYCARDIA WITH FIRST DEGREE AV BLOCK POSSIBLE LATERAL MYOCARDIAL INFARCTION , PROBABLY OLD [30 ms Q WAVE IN I/aVL/V5/V6] MODERATE T-WAVE ABNORMALITY, CONSIDER ANTERIOR ISCHEMIA [-0.1+ mV T WAVE IN V3/V4] ABNORMAL ECG Electronically Signed On 06-27-2024 17:23:44 TRASH MAN by Sandro Cooper M.D.
--- NOTE | 2024-06-27 11:12 | ED.GENADULT ---
HPI - General Adult General Chief complaint: Altered Mental Status Stated complaint: AMS Time Seen by Provider: 06/27/24 10:34 History of Present Illness HPI narrative: 48-year-old male presenting to the emergency department for evaluation for fever an malaise. Patient was at dialysis today and was having a fever so he was transferred to the emergency department. Patient does have [facility] of [facility] Upon arrival to the emergency department patient states he does feel improved Related Data Home Medications ?Medication ?Instructions ?Recorded ?Confirmed ?Last Taken ?Type sildenafil 50 mg tablet 50 mg PO PRN PRN Sexual Activity 05/06/21 03/27/24 Unknown History levetiracetam 750 mg tablet 750 mg PO Q12H 02/21/24 03/27/24 Unknown History sevelamer carbonate 800 mg tablet 800 mg PO TID 02/21/24 03/27/24 Unknown History hydralazine 10 mg tablet 25 mg PO TID 03/27/24 03/27/24 Unknown History melatonin 3 mg tablet 3 mg PO HS PRN 03/27/24 03/27/24 Unknown History Allergies Allergy/AdvReac Type Severity Reaction Status Date / Time No Known Allergies Allergy Unknown Verified 03/27/24 08:34 Review of Systems Review of Systems: All systems reviewed & are unremarkable except as noted in HPI and below PMFSH Past Medical History Medical History Acute respiratory failure Alcoholic liver failure Cirrhosis Cirrhosis, alcoholic Coagulopathy Encephalopathy, hepatic 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 ESRD needing dialysis Facial hematoma Pancytopenia Renal osteodystrophy Seizure Thrombocytopenia Surgical History Surgical History H/O cataract removal with insertion of prosthetic lens History of vasectomy Status post biopsy of kidney Family History Family History Father Colon cancer Dementia Social History Social History (Updated 03/27/24 @ 08:39 by Vani Anderson) Social History: Caffeine-tea Smoking status: Never smoker Alcohol intake: former Alcohol use details: none since04/11/21 Substance use: never Substance use type: does not use Do You Feel Safe in your Home?: Yes Lack of Transportation: No Lack of Food: Never True Current Housing: I Have Housing Concerned About Future Housing: No Difficulty Paying Gas/Electric Bills: No Difficulty Paying for Meds: No Currently Unemployed: No Education: Master's Degree or Higher Difficulty w/ Childcare or Family Care: No Spiritual care concerns: No Exam Narrative: APPEARANCE: Well appearing, no pain, no distress, well-nourished. HEAD: normocephalic, atraumatic. EYES: PERRLA/EOMI, conjunctivae clear. NOSE: Normal no drainage EARS:TMS clear with good light reflex. THROAT: Pharynx clear, no exudate. NECK: Supple. No adenopathy, no masses. RESPIRATORY: Airway patent, respirations nonlabored. Clear to auscultation bilaterally, no rales, rhonchi, wheezing. CARDIOVASCULAR: Regular rate and rhythm without murmurs rubs or gallops. ABDOMINAL: Soft, nontender, nondistended, normal bowel sounds MUSCULOSKELETAL: Moves all extremities. Strength/ROM intact, No edema, No calf tenderness. NEURO: Alert. Cranial nerves II through XII intact. Good gait. Good coordination SKIN: Warm, dry. Normal Color Course Vital Signs Vital signs: Vital Signs Temperature 97.4 F L 06/27/24 10:28 Pulse Rate 59 L 06/27/24 10:28 Respiratory Rate 11 L 06/27/24 10:28 Blood Pressure 125/59 L 06/27/24 10:28 Pulse Oximetry 99 06/27/24 10:28 Temperature 97.9 F 06/27/24 14:42 Pulse Rate 65 06/27/24 14:42 Respiratory Rate 12 06/27/24 14:42 Blood Pressure 136/68 06/27/24 14:42 Pulse Oximetry 100 06/27/24 14:42 Oxygen Delivery Room Air 06/27/24 11:22 Medical Decision Making [facility] Narrative Medical decision making narrative: 50-year-old male presenting emergency department for evaluation for increased somnolence while he was getting dialysis. Upon arrival emergency department patient is alert and appropriate. On re-evaluation patient states he is at his normal baseline and does prefer to be discharged home. Patient is afebrile in the emergency department and does have a white blood cell count of 1.6 this is not unusual for his baseline. Patient also does have a mild neutropenia. The no acute abnormalities on the patient's CMP patient was negative for influenza RSV and COVID. Since knee is well-appearing he does have some edema of the knee but no purulence and no significant erythema with a well-healing surgical incision. Expected range of motion of the right knee and patient was able to ambulate with no significant discomfort. Patient was comfortable the plan for discharge and close follow-up. All questions concerns were addressed. Differential Diagnosis Differential Diagnosis: Septic knee, COVID, RSV, influenza Vital Signs Vital Signs: Vital Signs Temperature 97.4 F L 06/27/24 10:28 Pulse Rate 59 L 06/27/24 10:28 Respiratory Rate 11 L 06/27/24 10:28 Blood Pressure 125/59 L 06/27/24 10:28 Pulse Oximetry 99 06/27/24 10:28 Temperature 97.9 F 06/27/24 14:42 Pulse Rate 65 06/27/24 14:42 Respiratory Rate 12 06/27/24 14:42 Blood Pressure 136/68 06/27/24 14:42 Pulse Oximetry 100 06/27/24 14:42 Oxygen Delivery Room Air 06/27/24 11:22 Lab Data Lab results reviewed: Yes I reviewed the patient's lab results. 06/27/24 11:30 06/27/24 11:30 Labs: Lab Results 06/27/24 Range/Units 11:30 WBC 1.6 L* (4.5-10.0) K/mm3 RBC 2.47 L (4.6-6.20) M/mm3 Hgb 8.0 L D (14.0-18.0) g/dL Hct 24.4 L (42.0-52.0) % MCV 98.8 (80-100) fl MCH 32.4 (26-34) pg MCHC 32.8 (32-36) g/dl RDW 18.4 H (11.5-14.5) % Plt Count 33 L (150-375) k/mm3 MPV 10.4 (7.4-10.4) fl Immature Gran % (Auto) 0.6 H (0-0.5) % Neut % (Auto) 56.2 (45.5-73.1) % Lymph % (Auto) 27.1 (18.3-44.2) % Frio % (Auto) 9.0 H (2.6-8.5) % Eos % (Auto) 6.5 H (0-4.4) % Baso % (Auto) 0.6 (0.2-1.2) % Lymph # (Auto) 0.42 L (0.9-3.2) K/mm3 Frio # (Auto) 0.1 (0.1-0.6) K/mm3 Eos # (Auto) 0.1 (0-0.3) K/mm3 Baso # (Auto) 0.0 (0.0-0.1) K/mm3 Abs Immat Gran (auto) 0.01 (0.00-0.031) K/mm3 Absolute Neuts (auto) 0.9 L (1.3-6.7) K/mm3 Absolute Nucleated RBC 0.000 (0.0-0.012) K/mm3 Nucleated RBC % 0.0 (0.0-0.2) % Platelet Estimate Decreased (Adequate) % Immature Plt Fraction 2.9 (0.9-11.2) % Hypochromasia 1+ Anisocytosis 2+ Schistocytes None seen PT 18.1 H (11.1-14.7) Seconds INR 1.5 APTT 33.2 (22.3-36.8) Seconds Sodium 136 L (137-145) mmol/L Potassium 3.7 (3.4-5.0) mmol/L Chloride 104 (98-107) mmol/L Carbon Dioxide 31 H (22-30) mmol/L Anion Gap 1 L (4-12) mmol/L BUN 23 H D (9-20) mg/dL Creatinine 3.30 H (0.7-1.3) mg/dL Estim Creat Clear Calc 22 ml/min Estimated GFR 19 L (59 - ) Glucose 98 (65-110) mg/dL Calcium 8.7 (8.4-10.2) mg/dL Total Bilirubin 1.0 (0.2-1.3) mg/dL AST 32 (17-59) U/L ALT 13 (6-50) U/L Alkaline Phosphatase 166 H (38-126) U/L Total Protein 6.0 L (6.3-8.2) g/dL Albumin 2.9 L (3.5-5.1) g/dL Influenza A (RT-PCR) Negative (Negative) Influenza B (RT-PCR) Negative (Negative) RSV (RT-PCR) Negative (Negative) SARS-CoV-2 RNA (RT-PCR) Negative (Negative) Imaging Data Radiologist's impression: Impressions Knee X-Ray 06/27/24 11:50 IMPRESSION: 1. Moderate right knee osteoarthritis. 2. Small right knee joint effusion. Discharge Plan Discharge Clinical Impression: AMS (altered mental status) Patient Disposition: Home, Self-Care Condition: Stable Instructions: Antibiotic Form, General Patient Instructions Additional Instructions: Continue to have close follow-up with your physicians. If you have any worsening symptoms then please call or return to the emergency department. Patient Language: Faroese Prescriptions: No Action melatonin 3 mg tablet 3 mg PO HS PRN levetiracetam 750 mg tablet 750 mg PO Q12H sevelamer carbonate 800 mg tablet 800 mg PO TID Patient Comments: Take 2-3 tabs with every meal and 1 with a snack. Rx Instructions: must administer with a meal/food hydralazine 10 mg tablet 25 mg PO TID sildenafil 50 mg tablet 50 mg PO PRN PRN (Reason: Sexual Activity) nadolol 20 mg tablet 20 mg PO DAILY Qty: 30 0RF amlodipine 5 mg tablet 5 mg PO DAILY Qty: 90 3RF furosemide 80 mg tablet 80 mg PO BID Qty: 180 3RF lactulose 20 gram/30 mL solution 20 g PO BID PRN (Reason: Constipation/liver issues) Qty: 1419 3RF Rx Instructions: I wrote that odd number because pt wants to have 3 bottles at a time. I believe a bottle is 473ml. pantoprazole 40 mg tablet,delayed release (DR/EC) See Rx Instructions .ROUTE .COMPLEX Qty: 90 3RF Dose Instruction: TAKE 1 TABLET BY MOUTH DAILY Rx Instructions: TAKE 1 TABLET BY MOUTH DAILY Follow-up/Referrals: Efren Ramirez, DO [Primary Care Provider] -
--- NOTE | 2024-06-27 11:32 | PC.NURSE ---
hemodialysis access in LEFT upper arm
[2024-06-27 11:46] LABS: Basophils Percent Auto 0.6 % (0.2-1.2); Eosinophils Absolute Auto 0.1 K/mm3 (0-0.3); Eosinophils Percent Auto 6.5 % (0-4.4); Hematocrit 24.4 % (42.0-52.0); Immature Granulocyte Absolute 0.01 K/mm3 (0.00-0.031); Immature Granulocyte Percent A 0.6 % (0-0.5); Immature Platelet Fraction Pct 2.9 % (0.9-11.2); Lymphocytes Absolute Auto 0.42 K/mm3 (0.9-3.2); Lymphocytes Percent Auto 27.1 % (18.3-44.2); Mean Corpuscular HGB Conc 32.8 g/dl (32-36); Mean Corpuscular Hemoglobin 32.4 pg (26-34); Mean Corpuscular Volume 98.8 fl (80-100); Mean Platelet Volume 10.4 fl (7.4-10.4); Monocytes Absolute Auto 0.1 K/mm3 (0.1-0.6); Neutrophils Absolute Auto 0.9 K/mm3 (1.3-6.7); Neutrophils Percent Auto 56.2 % (45.5-73.1); Platelet Count Result 33 k/mm3 (150-375); Red Blood Count 2.47 M/mm3 (4.6-6.20); Red Cell Distribution Width 18.4 % (11.5-14.5)
[2024-06-27 11:55] LABS: Alanine Aminotransferase 13 U/L (6-50); Albumin Level 2.9 g/dL (3.5-5.1); Alkaline Phosphatase 166 U/L (38-126); Anion Gap 1 mmol/L (4-12); Aspartate Amino Transferase 32 U/L (17-59); Blood Urea Nitrogen 23 mg/dL (9-20); Calcium 8.7 mg/dL (8.4-10.2); Carbon Dioxide 31 mmol/L (22-30); Chloride 104 mmol/L (98-107); Estimated CRCL calculation 22 ml/min; Estimated Glomerular Filt Rate 19; Glucose 98 mg/dL (65-110); Potassium 3.7 mmol/L (3.4-5.0); Sodium 136 mmol/L (137-145)
[2024-06-27 11:57] LABS: INR 1.5; Prothrombin Time 18.1 Seconds (11.1-14.7)
[2024-06-27 11:59] LABS: Partial Thromboplastin Time 33.2 Seconds (22.3-36.8)
[2024-06-27 12:10] LABS: White Blood Count 1.6 K/mm3 (4.5-10.0)
[2024-06-27 12:21] LABS: Influenza A QL RT-PCR Negative (Negative); Influenza B QL RT-PCR Negative (Negative); RSV RNA, RT-PCR Negative (Negative); SARS-CoV-2 RNA PCR Negative (Negative)
[2024-06-27 13:24] LABS: Anisocytosis 2+; Hypochromasia 1+; Platelet Estimate Decreased (Adequate)
[2024-06-27 13:25] LABS: Schistocytes None Seen
== END 2024-06-27 14:44 | disposition home or self-care (01) ==
PROVIDERS: Emergency Provider Emergency Medicine; PCP Internal Medicine
DX: R41.82 Altered mental status, unspecified (principal); N18.6 End stage renal disease; Z20.822 Contact with and (suspected) exposure to COVID-19; Z96.659 Presence of unspecified artificial knee joint
CPT/HCPCS: 36415; 73562; 80053; 85025; 85055; 85610; 85730; 87637; 93005; 99283

== ENCOUNTER 2024-08-12 08:31 | Inpatient (IN) | payer MEDICARE, SELFPAY ==
[2024-08-12] VITALS (18 sets, daily range): BP systolic 119–164; BP diastolic 60–77; PULSE 57–64; RESP 12–20; TEMP 36.6–37; O2SAT 98–100; BMI 24.9
--- NOTE | ~2024-08-12 | CT_ITS ---
EXAMINATION: CT brain wo con DATE: 08/14/2024 09:08 INDICATION: Encephalopathy. TECHNIQUE: Computed tomography (CT) of the head was performed without intravenous contrast. The mA wa s adjusted according to patient size. Iterative reconstruction technique was employed. The dose-lengt h product was 681.00 mGy-cm. COMPARISON: Head CT 08/12/2024 FINDINGS: There is no intracranial hemorrhage, acute infarction, or abnormal intracranial mass lesion . The ventricles are normal in size. There is mild mucosal thickening in the paranasal sinuses. There are likely changes of ocular lens replacement surgeries. The mastoid air cells are normal. IMPRESSION: 1. Normal brain. Reviewed, dictated and finalized at location A. GRINDER HELPER IMPRESSION: 1. Normal brain.
--- NOTE | ~2024-08-12 | CT_ITS ---
EXAMINATION: CTA brain carotid DATE: 08/12/2024 09:19 INDICATION: Altered metal status. Left upper extremity weakness. TECHNIQUE: Computed tomographic angiography (CTA) of the head was performed without and with 100 mL O mnipaque-350 intravenous contrast. CTA of the neck was performed with intravenous contrast. Automated exposure control and iterative reconstruction technique were employed. The dose-length product was 1 757.40 mGy-cm. Maximum intensity projection and volume rendered 3D-reconstructions were created by nilson correa technologist on a separate workstation. COMPARISON: Head CT 03/12/2024 FINDINGS: HEAD CTA: There is no intracranial hemorrhage, acute infarction, or abnormal intracranial mass lesion . The ventricles are normal in size. There is mild mucosal thickening in the paranasal sinuses. There are likely changes of ocular lens replacement surgeries. The mastoid air cells are normal. The verte bral arteries are codominant. There is no significant stenosis of basilar artery or the posterior cer ebral arteries. The posterior communicating arteries are normal. There is no significant stenosis of the intracranial internal carotid arteries or anterior or middle cerebral arteries. Anterior communic ating artery is normal. There is no aneurysm. NECK CTA: There are no pathologically enlarged lymph nodes. There is no significant stenosis of the v ertebral arteries. There is plaque in the proximal internal coronary arteries. There is 0% stenosis o f the proximal right internal carotid artery relative to normal distal artery lumen diameter (NASCET criteria). There is 0% stenosis of the proximal left internal carotid artery relative to normal dista l artery lumen diameter. C1 ring is ununited posteriorly, a normal variant. There is mild chronic ant erior wedging of T1 vertebral body. IMPRESSION: 1. Normal brain. 2. No aneurysm or significant intracranial arterial stenosis. 3. 0% stenosis of the proximal internal carotid arteries relative to normal distal artery lumen diame ters (NASCET criteria). Reviewed, dictated and finalized at location A. OS IMPRESSION: 1. Normal brain. 2. No aneurysm or significant intracranial arterial stenosis. 3. 0% stenosis of the proximal internal carotid arteries relative to normal dis raphael artery lumen diameters (NASCET criteria).
--- NOTE | ~2024-08-12 | XR_ITS ---
Right Knee Technique: AP, lateral, and sunrise views were obtained. Clinical History: Pain swelling COMPARISON: 06/27/2024 Findings: No fracture or dislocation is seen. Generalized osteopenia noted. Stable mild degenerative change. Stable small joint effusion is seen. Impression: No acute abnormality. Stable degenerative change and small joint effusion. Reviewed, dictated and finalized at location . R SALES CONSULTANT Impression: No acute abnormality. Stable degenerative change and small joint effusion.
--- NOTE | ~2024-08-12 | XR_ITS ---
EXAMINATION: XR chest 1V DATE: 08/12/2024 09:24 INDICATION: Altered mental status. TECHNIQUE: A single frontal view of the chest was obtained. COMPARISON: Chest single view 03/12/2024 FINDINGS: There is no pneumonia, pleural effusion, or pneumothorax. The heart size is normal. There i s a vascular stent in left upper limb. IMPRESSION: 1. No acute cardiopulmonary disease. Reviewed, dictated and finalized at location A. FOR STUDENT AFFAIRS
--- NOTE | ~2024-08-12 | MR_ITS ---
EXAMINATION: MR brain/brain stem wo/w con DATE: 08/12/2024 20:40 INDICATION: Left-sided weakness TECHNIQUE: Magnetic resonance imaging (MRI) of the brain and brainstem was performed with and without intravenous contrast. 15 mL of MultiHance was utilized. COMPARISON: Reference is made to a CTA examination of the brain, performed on the same day. Reference is also made to a CT examination of the brain, performed on the same day. FINDINGS: No restricted diffusion is identified to suggest acute cerebral infarction. No abnormal signal intensity is identified on gradient imaging to suggest acute or subacute hemorrhag e. Multiple foci of increased signal intensity on both T2-weighted sequences and FLAIR within the perive ntricular white matter, most high in the convexity without contrast enhancement. No abnormal contrast enhancement is identified. No mass or mass effect is present. IMPRESSION: No acute cerebral infarction. No acute or subacute hemorrhage. Multiple foci of increased T2-weighted signal abnormalities within the periventricular white matter, suggesting demyelination. Reviewed, dictated and finalized at location A. R SCREWDRIVER OPERATOR IMPRESSION: No acute cerebral infarction. No acute or subacute hemorrhage. Multiple foci of increased T2-weighted signal abnormalities within the perivent ricular white matter, suggesting demyelination.
--- NOTE | ~2024-08-12 | XR_ITS ---
EXAMINATION: XR abdomen gastric tube insert DATE: 08/14/2024 09:54 INDICATION: Nasogastric tube placement. TECHNIQUE: A supine view of the abdomen was obtained. COMPARISON: None. FINDINGS: The lower abdomen and right lateral aspect of the abdomen are excluded. The nasogastric tub e tip is in the stomach. IMPRESSION: 1. Nasogastric tube tip in the stomach. Reviewed, dictated and finalized at location A. KDOWN MAN
--- NOTE | 2024-08-12 08:37 | ECG_ITS ---
Test Date: 2024-08-12 09:03:27 Measurements Intervals [place] Rate: 59 P: 22 NC: 208 QRS: 20 QRSD: 109 T: 43 QT: 490 QTc: 489 Interpretive Statements SINUS BRADYCARDIA WITH FIRST DEGREE AV BLOCK INCOMPLETE RIGHT BUNDLE BRANCH BLOCK LEFT VENTRICULAR HYPERTROPHY WITH ST-T CHANGE BORDERLINE ST-T WAVE ABNORMALITY- ANTERIOR LEADS BASELINE ARTIFACT- II, III, AVF, V1-V3 BORDERLINE ECG Compared to ECG 06/27/2024 10:37:40 NO SIGNIFICANT CHANGE Electronically Signed On 08-12-2024 09:06:40 CCNP by Refugio Cano D.O.
--- OUTSIDE RECORDS SUMMARY | 2024-08-12 09:07 | XMS_ITS | Encounter Summary ---
Author Organization [facility] Health Address [address] [place] [address] Care Team Providers Care Education Paraprofessional Name Role Phone Dm Pena MD Primary Care Provider Efren Ramirez DO Primary Care Provider Encounter Details Date Type Department Care Team (Late st Contact Info) Description 03/09/2020 Telephone [facility] [address] [place] [address] iKko Pena MD [address] [place] [address] Social History Tobacco Use Types Packs/Day Years Used Date Smoking Tobacco: Never Smokeless Tobacco: Former Chew Alcohol Use Standard Drinks/Week Comments Not Currently 0 (1 standard drink = 0.6 oz pure alcohol) Last drink 01/19/19. Used to drink 2-3 days/ week-wine or vodka. Prior to 2014, he drank steadily. Stpped for 2.5 years and then started again after the divorce. Sex and Gender Information Value Date Recorded Sex Assigned at Not on file Gender Identity Not on file Sexual Orientation Not on file documented as of this encounter Functional Status Functional Status Response Date of Assess ment Is person deaf or have serious hearing difficult y? No 09/11/2019 Is person blind or have serious difficulty seein g? No 09/11/2019 Does person have serious dif ficulty walking/climbing stairs? No 09/11/2019 Does person have difficulty dressing/bathing? No 09/11/2019 Does person have difficulty doing errands alone? No 09/11/2019 Cognitive Status Response Date of Assessm ent Does person have difficulty concentrating/remembering/making decisions? No 09/11/2019 documented as of this encounter Miscellaneous Notes * Telephone Encounter - Jyothi Melendez - 03/09/2020 9:18 AM CDT LM for patient to discuss details of surgery. Left call back number. documented in this encounter Plan of Treatment Upcoming Encounters Date Type Department Care Team (Late st Contact Info) Description 08/14/2024 10:45 AM CLEAN ROOM OPERATOR Office Visit [facility] - Orthopedics [address] [place] [address], [place] [address] Yaima Dobbins MD [address] [place] [address] [place] [address] documented as of this encounter Visit Diagnoses Not on filedocumented in this encounter Additional Health Concerns Infection Onset Date Last Indicated Resolved Time COVID-19 Under Investigation 09/20/2020 09/20/2020 09/20/2020 10:10 PM CDT COVID-19 Under Investigation 07/19/2021 07/19/2021 07/19/2021 1:09 PM CLEAN ROOM OPERATOR COVID-19 Confirmed 07/19/2021 07/19/2021 4:33 AM CLEAN ROOM OPERATOR COVID-19 Under Investigation 10/29/2023 10/29/2023 10/29/2023 9:28 AM CDT documented as of this encounter Care Teams Education Paraprofessional Relationship Specialty Start Date End Date Dm Pena MD [address] [id number] PCP - General Family Medicine 02/06/19 06/11/24 Efren Ramirez DO [address] [place] [address] PCP - General Internal Medicine 06/12/24 documented as of this encounter
--- OUTSIDE RECORDS SUMMARY | 2024-08-12 09:07 | XMS_ITS | Encounter Summary ---
Author Organization [facility] Address [address] [place] [id number] Phone Care Team Providers Care Concrete Pump Operator Helper Name Role Phone Lonnie Schaefer Primary Care Provider Encounter Details Date Type Department Care Team (Late st Contact Info) Description 04/20/2022 [facility] Nephrology and Hypertension [address] [facility], [address] [place] [address] Aleja Norris RN Social History Tobacco Use Types Packs/Day Years Used Date Smoking Tobacco: Never Smokeless Tobacco: Never Alcohol Use Standard Drinks/Week Comments Yes 0 (1 standard drink = 0.6 oz pure alcohol) Alcoholic Drinks/day: has recently quit, was a very heavy drinker Sex and Gender Information Value Date Recorded Sex Assigned at Not on file Gender Identity Not on file Sexual Orientation Not on file documented as of this encounter Miscellaneous Notes * Telephone Encounter - Aleena Samaniego - 04/21/2022 9:14 AM CDT spk to pt - relayed info - Pt said that the dialysis cntr told him he should not being taking that RX anyway * Telephone Encounter - Bashir Norris MD - 04/20/2022 4:24 PM CDT Please let pt know he needs to go through PCP for that * Telephone Encounter - Aleja Norris RN - 04/20/2022 9:41 AM CDT Pt called requesting a refill of his Xifaxan. Please send to [facility]. documented in this encounter Plan of Treatment Not on file documented as of this encounter Visit Diagnoses Not on filedocumented in this encounter Care Teams Concrete Pump Operator Helper Relationship Specialty Start Date End Date Lonnie Schaefer DO [address] [place] [place] [id number] PCP - General 02/21/19 documented as of this encounter
--- OUTSIDE RECORDS SUMMARY | 2024-08-12 09:07 | XMS_ITS | Encounter Summary ---
Author Organization [facility] Health Address [address] [facility] [place] [address] Care Team Providers Care Home Delivery Driver Name Role Phone Efren Ramirez DO Primary Care Provider Encounter Details Date Type Department Care Team (Late st Contact Info) Description 08/07/2024 Telephone [facility] - [facility]ology [address] [facility], [place] [phone] Yaima Dobbins MD [address] [place] [address] OF ORTHOPEDIC SURGERY [place], [place] [id number] Social History Tobacco Use Types Packs/Day Years Used Date Smoking Tobacco: Never Passive Smoke Exposure: Never Smokeless Tobacco: Former Chew Comments:Some days Alcohol Use Standard Drinks/Week Comments Not Currently 0 (1 standard drink = 0.6 oz pure alcohol) Last drink 04/12/2021. Used to drink 2-3 days/ week-wine or vodka. Prior to 2014, he drank steadily. Stpped for 2.5 years and then started again after the divorce. AUDIT-C Answer Date Recorded Q1: How often do you have a drink containing alcohol? Never 06/12/2024 Q2: How many drinks containi ng alcohol do you have on a typical day when you are drinking? Patient does not drink 4 Q3: How often do you have si x or more drinks on one occasion? Never 06/12/2024 Overall Financial Resource Strain (CARDIA) Answe r Date Recorded How hard is it for you to pa y for the very basics like food, housing, medical care, and heating? Not hard at all 06/12/2024 [facility] - Occupational Stress Questionnaire Answer Date Recorded Do you feel stress - tense, restless, nervous, or anxious, or unable to sleep at night because your mind is troubled all the time - these days? Not at all 06/12/2024 Hunger Vital Sign Answer Date Recorded Within the past 12 months, y ou worried that your food would run out before you got the money to buy more. Never true 06/12/20 24 Within the past 12 months, t he food you bought just didn't last and you didn't have money to get more. Never true 06/12/2024 PRAPARE - Transportation Answer Date Re corded In the past 12 months, has l ack of transportation kept you from medical appointments or from getting medications? No 06/01 In the past 12 months, has l ack of transportation kept you from meetings, work, or from getting things needed for daily living? No 06/12/2024 Housing Stability Vital Sign Answer Armaan e Recorded In the last 12 months, was t here a time when you were not able to pay the mortgage or rent on time? No 11/01/2023 In the last 12 months, how many places have you lived? 1 11/01/2023 In the last 12 months, was t here a time when you did not have a steady place to sleep or slept in a nursing home (including now)? No 11/01/2023 Housing Stability Vital Sign Answer Armaan e Recorded In the last 12 months, was t here a time when you were not able to pay the mortgage or rent on time? No 06/12/2024 In the past 12 months, how m any times have you moved where you were living? 0 06/12/2024 At any time in the past 12 m [facility], were you homeless or living in a nursing home (including now)? No 06/12/2024 Sex and Gender Information Value Date Recorded Sex Assigned at Not on file Gender Identity Not on file Sexual Orientation Not on file documented as of this encounter Functional Status Functional Status Response Date of Assess ment Is person deaf or have serious hearing difficult y? No 06/12/2024 Is person blind or have serious difficulty seein g? No 06/12/2024 Does person have serious dif ficulty walking/climbing stairs? No 06/12/2024 Does person have difficulty dressing/bathing? No 06/12/2024 Does person have difficulty doing errands alone? No 06/12/2024 Cognitive Status Response Date of Assessm ent Does person have difficulty concentrating/remembering/making decisions? No 06/12/2024 documented as of this encounter Miscellaneous Notes * Telephone Encounter - Lisa Snowden RN - 08/07/2024 9:19 AM CST Pulmonary office got a voice mail about this patient from a ulike. The [employer] company is asking for office visit notes. The phone number to reach them at or further clarification is [phone] ext. [phone]. Please advise. The fax number is [phone] if needed. N DRIVER documented in this encounter Plan of Treatment Upcoming Encounters Date Type Department Care Team (Late st Contact Info) Description 08/14/2024 10:45 AM TRAIN DRIVER Office Visit [facility] - Orthopedics [address] [place] [address], [place] [phone] Yaima Dobbins MD [address] [place] [address] [place] [address] documented as of this encounter Goals Goal Patient Goal Type Associated Problems Recent Progress Patient-Stated? Author Medication Management General On track( 024 12:24 PM CDT) Imelda Perez, RN Note: Expected end date: ongoing Interventions: Take all medications as prescribed Let your doctor know right away about any changes in your medications Make sure to request a refill of your medication at least one week prior to your last dose documented as of this encounter Visit Diagnoses Not on filedocumented in this encounter Care Teams Home Delivery Driver Relationship Specialty Start Date End Date Efren Ramirez DO [address] [place] [address] PCP - General Internal Medicine 06/12/24 documented as of this encounter
--- OUTSIDE RECORDS SUMMARY | 2024-08-12 09:08 | XMS_ITS | Clinical Summary ---
Author Organization [facility] Address [address] [place] [id number] Phone Care Team Providers Care Motorcoach Operator Name Role Phone SchaeferLonnie avalos Primary Care Provider [phone] Allergies No known active allergies Medications Medication Sig Dispensed Refills Start Date End Date Status amLODIPine (NORVASC) 5 MG tablet Take 5 mg by mouth 1 (one) time each day Active Multiple Vitamin (MULTIVITAMIN) capsule Take 1 capsule by mouth 1 (one) time each day Active sodium bicarbonate 650 MG tablet Take 1,300 mg by mouth 2 (two) times a day Active aluminum hydroxide (ALTERNGEL) 320 MG/5ML suspension Take 5 mL by mouth 3 (three) times a day with meals Active ciprofloxacin (CIPRO) 250 MG tablet Take 250 mg by mouth 1 (one) time each day Active Melatonin 5 MG tablet Take 5 mg by mouth at night if needed Active ergocalciferol (VITAMIN D-2) 33619 units capsule Take 50,000 Units by mouth 1 (one) time per week Active lisinopril (PRINIVIL) 20 MG tablet TAKE 1 TABLET BY MOUTH EVERY DAY 30 tablet 11 05/17/2020 Active sevelamer carbonate (RENVELA) 800 MG tablet TAKE 2 TABLETS(1600 MG) BY MOUTH THREE TIMES DAILY WITH MEALS. SWALLOW TABLET WHOLE. 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 10/13/2016 Cirrhosis of liver 05/15/2016 Idiopathic gout, ankle and foot 05/15/2016 Resolved Problems Problem Noted Date Diagnosed Date Resolved Date Chronic kidney disease, stage 3 (moderate) 05/15/2016 02/26/2019 Immunizations Name Administration Dates Next Due Influenza TIV (IM) 05/29/2016(Deferred: Patient Refused) Family History Medical History Relation Comments Malignant neoplastic disease Father Coronary arteriosclerosis Mother Kidney disease Neg Hx Relation Status Comments Father Mother Social History Tobacco Use Types Packs/Day Years Used Date Smoking Tobacco: Never Smokeless Tobacco: Never Alcohol Use Standard Drinks/Week Comments Yes 0 (1 standard drink = 0.6 oz pure alcohol) Alcoholic Drinks/day: has recently quit, was a very heavy drinker Sex and Gender Information Value Date Recorded Sex Assigned at Not on file Gender Identity Not on file Sexual Orientation Not on file Last Filed Vital Signs Vital Sign Reading Time Taken Comments Blood Pressure 125/66 02/27/2019 10:00 AM CDT Pulse 102 02/27/2019 10:00 AM CDT Temperature - - Respiratory Rate - - Oxygen Saturation - - Inhaled Oxygen Concentration - - Weight 86.6 kg (191 lb) 02/27/2019 10:00 AM CDT Height 177.8 cm (5' 10 ) 02/27/2019 10:00 AM CDT Body Mass Index 27.41 02/27/2019 10:00 AM CDT Plan of Treatment Health Maintenance Due Date Last Done Comments Influenza Vaccine (#1) 2024 04/27/2017, 2014 Care Teams Motorcoach Operator Relationship Specialty Start Date End Date Lonnie Schaefer DO [address] [place] [address] PCP - General 02/21/19
[2024-08-12 09:09] LABS: Glucose Point of Care 118 mg/dl (65-105)
--- OUTSIDE RECORDS SUMMARY | 2024-08-12 09:10 | XMS_ITS | Referral Summary ---
Author Organization [facility] Health Address [address] [place] [address] Care Team Providers Care Patient Placement Coordinator Name Role Phone Efren Ramirez DO Primary Care Provider Source Comments [facility],non-owned Affiliates and Associated Physician Practices is amultiple site organization consisting of ambulatory clinics and hospital sitesin [place], [place], [place] and [place]. This disclosure is being madepursuant to the Care Everywhere program and may not contain all information available regarding this patient. Last updated 18.[facility] Encounters Date Type Department Care Team Description 08/07/2024 Telephone [facility] - Pulmonology [address] [place] [address] Yaima Dobbins MD 08/05/2024 Travel 08/05/2024 8:40 PM BUSINESS INFO CONSULTANT - 08/05/2024 8:52 PM BUSINESS INFO CONSULTANT Emergency [facility] EMERGENCY DEPARTMENT [address] [place] [phone] Discharge Disposition: Left Against Medical Advice/Discontinued Care 08/05/2024 10:00 AM BUSINESS INFO CONSULTANT Clinical Support [facility] TXP VAZQUEZ CSM 3L [address] [facility] [place] [phone] Unknown, Provider S/P hernia repair 07/24/2024 Travel 07/24/2024 7:05 AM BUSINESS INFO CONSULTANT - 07/24/2024 11:59 PM BUSINESS INFO CONSULTANT Hospital Encounter [facility] LAB OP DRAW STATION [address] [place] [address] Discharge Disposition: Home or Self Care 07/22/2024 Telephone [facility] - GI [address] [facility] [place] [address] Jackson Melvin MD Physical Therapy 07/11/2024 Travel 07/11/2024 7:05 AM BUSINESS INFO CONSULTANT - 07/11/2024 9:28 AM BUSINESS INFO CONSULTANT Surgery [facility] LANETTE OP [address] [place] [address] Theron Medellin MD Open right inguinal hernia repair with mesh 07/11/2024 7:29 AM BUSINESS INFO CONSULTANT Anesthesia Event [facility] LANETTE OP [address] [place] [address] Pawan Lynn DO Keeven, Grace C, TECHNOLOGY INFUSION SPECIALIST-CHILD CARE ASSOCIATE 07/11/2024 5:06 AM BUSINESS INFO CONSULTANT - 07/11/2024 12:42 PM BUSINESS INFO CONSULTANT Hospital Encounter [facility] LANETTE OP [address] [place] [address] Theron Medellin MD Surgery General Discharge Disposition: Home or Self Care 07/08/2024 12:50 PM BUSINESS INFO CONSULTANT - 07/08/2024 11:59 PM BUSINESS INFO CONSULTANT Hospital Encounter [facility] LAB OP DRAW STATION [address] [place] [address] Unknown, Provider Discharge Disposition: Home or Self Care 07/08/2024 12:12 PM BUSINESS INFO CONSULTANT - 07/08/2024 12:49 PM BUSINESS INFO CONSULTANT Hospital Encounter H PAT [address] [place] [address] Unknown, Provider Theron Medellin MD Discharge Disposition: Home or Self Care 07/08/2024 Travel 07/08/2024 11:00 AM BUSINESS INFO CONSULTANT Office Visit [facility] TXP VAZQUEZ CSM 3L [address] [place] [address] Unknown, Provider Inguinal hernia of right side without obstruction or gangrene (Primary Dx); Alcoholic cirrhosis of liver without ascites (HCC); Pre-op evaluation 07/07/2024 Travel 06/26/2024 Travel 06/26/2024 7:10 AM BUSINESS INFO CONSULTANT - 06/26/2024 11:59 PM BUSINESS INFO CONSULTANT Hospital Encounter [facility] LAB OP DRAW STATION [address] [place] [address] Unknown, Provider Discharge Disposition: Home or Self Care 06/18/2024 Telephone [facility] - GI [address] [place] [phone] Melecio Graves MD Future Appointment (Called pt and left vm about setting up an appt with Dr. Graves for this Sunday, 06/20.) 06/18/2024 Telephone [facility] - GI [address] [place] [phone] Melecio Graves MD Appointment 06/18/2024 7:40 AM BUSINESS INFO CONSULTANT - 06/18/2024 11:59 PM BUSINESS INFO CONSULTANT Hospital Encounter [facility] LAB OP DRAW STATION [address] [place] [address] Melecio Graves MD Discharge Disposition: Home or Self Care 06/17/2024 Travel 06/17/2024 Telephone Transitional Care at [address] [address] Carolyn Guzman, corporate events director 06/16/2024 Telephone Transitional Care at [address] [address] Melissa Leonard, corporate events director 06/11/2024 1:36 PM BUSINESS INFO CONSULTANT - 06/14/2024 11:00 AM BUSINESS INFO CONSULTANT Hospital Encounter [facility] SHORT STAY UNIT [address] [place] [address] Sandro Davis MD Ishiyama, Takaaki, MD Qureshi, Kamran, MD Emergency Medicine Discharge Disposition: Home or Self Care 06/11/2024 Travel 06/06/2024 Telephone [facility] - [address] [address] Roman Mario, RN Follow-up 06/05/2024 Orders Only [facility] - GI [address] [place] [address] Melecio Graves MD 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) 06/05/2024 Telephone [facility] RAD CSM [address]L [address] [place] [phone] Julian Campbell, RN Refill Request 06/04/2024 Telephone [facility] - Nephrology [address] [place] [phone] Melecio Graves MD Coordination Of Care 06/02/2024 Orders Only [facility] - GI [address] [place] [phone] Melecio Graves MD 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 ([facility]) 05/30/2024 Transitional Care [facility] CARE COORDINATION [address] [place] [address] Hermelinda Valadez, DIVINE Transitions Of Care 05/30/2024 Transitional Care [facility] CARE COORDINATION [address] [place] [address] Hermelinda Valadez, DIVINE Transitions Of Care 05/19/2024 12:15 PM BUSINESS INFO CONSULTANT - 05/28/2024 3:42 PM BUSINESS INFO CONSULTANT Hospital Encounter [facility] 6N ACUTE [address] [place] [address] John Gutiérrez DO Kiwan, Wissam, MD Agbim, Uchenna A, MD SynJackson MD Gastroenterology Discharge Disposition: Home or Self Care 05/20/2024 6:07 PM BUSINESS INFO CONSULTANT Anesthesia Event [facility] LANETTE OP [address] [place] [address] Nickolas Donahue MD Garcia, Alec, MD 05/20/2024 6:03 PM BUSINESS INFO CONSULTANT - 05/20/2024 7:27 PM BUSINESS INFO CONSULTANT Surgery [facility] LANETTE OP [address] [place] [address] Gerardo Álvarez MD IRRIGATION/DEBRIDEMENT LEG/KNEE 05/19/2024 Travel 05/16/2024 Telephone [facility] - GI [address] [place] [phone] Melecio Graves MD Medication Request 05/13/2024 Travel 05/13/2024 10:45 AM BUSINESS INFO CONSULTANT Office Visit [facility] TXP VAZQUE[facility] CSM [address]L [address] [place] [phone] Theron Medellin MD Right inguinal hernia (Primary Dx) from Last 3 Months Allergies No known active allergies Medications * Be aware that medications may not be up to date on this document. Alwaysverify current medications with the patient. Medication Sig Dispensed Refills Start Date End Date Status melatonin 3 MG tablet Take 5 mg by mouth nightly as needed for Insomnia (takes 10 mg prn) Active pantoprazole EC (PROTONIX) 40 MG tablet Take 1 tablet by mouth once daily 90 tablet 3 01/30/2019 Active nadolol (CORGARD) 20 MG tabletIndications :Alcoholic cirrhosis of liver with ascites (HCC) Take 1 (one) tablet by mouth once daily 90 tablet 3 09/10/2020 Active lactulose (Chronulac) 10 GM/15ML solutionIndicatio ns:Cirrhosis of liver with ascites, unspecified hepatic cirrhosis type (HCC) Take 30 mL by mouth 3 times daily 2838 mL 1 11/13/2023 Active levETIRAcetam (Keppra) 750 MG tablet TAKE 1 TABLET BY MOUTH TWICE DAILY 180 tablet 3 03/10/2024 Active renal vitamin (Dialyvite) tablet Take 1 (one) tablet by mouth once daily 05/29/2024 Active sevelamer carbonate (Renvela) 800 MG Take 2 (two) tablets by mouth 3 times daily with meals for 90 days 180 tablet 2 05/28/2024 08/26/2024 Active acetaminophen (Tylenol) 500 MG tablet Take 1 (one) tablet by mouth every 6 hours Maximum allowable Acetaminophen amount = 2 Grams (2000 mg) / 24 hours. 06/13/2024 Active hydrALAZINE (Apresoline) 25 MG tablet Take 1 (one) tablet by mouth once daily Active amLODIPine (Norvasc) 2.5 MG tablet Take 1 (one) tablet by mouth once daily Active furosemide (Lasix) 80 MG tablet Take 1 (one) tablet by mouth 2 times daily 05/30/2024 Active oxyCODONE, immediate release, (Roxicodone) 5 MG tabletIndications :Alcoholic cirrhosis of liver without ascites (HCC) Take 1 (one) tablet by mouth every 6 hours as needed for Pain 15 tablet 07/11/2024 Active Additional Information Patient not taking.Reported on 08/05/2024 Active Problems Problem Noted Date Diagnosed Date Neutropenia 06/14/2024 Acute pain of right knee 06/11/2024 Hepatic cirrhosis, unspecifi ed hepatic cirrhosis type, unspecified whether ascites present 06/11/2024 Seizure disorder 06/11/2024 Essential hypertension 06/11/2024 Arthritis, septic 05/28/2024 Thrombocytopenia 05/19/2024 Pain and swelling of right knee 05/19/2024 Metabolic encephalopathy 10/29/2023 Hyperkalemia 10/29/2023 Alcoholic cirrhosis of liver without ascites Uremia 10/29/2023 Malaise 10/29/2023 Hypertension, unspecified type 10/29/2023 ESRD (end stage renal disease) on dialysis 10/28 Hypertensive emergency 10/29/2023 GERD (gastroesophageal reflux disease) Thrombocytopenia, secondary 10/29/2023 Acute respiratory failure 10/29/2023 S/P arteriovenous (AV) graft placement 2 Seizures 07/19/2021 Pre-transplant evaluation for liver transplant 0 10/02/2019 Overview (07/24/2024): Images from the original note were not included. Jj Cuello [address] Dr[address] 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 Using the maximum value. Serum Sodium: 141 mmol/L (Using max of 137 mmol/L) at 07/24/2024 7:38 AM Total Bilirubin: 1.3 mg/dL at 07/24/2024 7:38 AM Serum Albumin: 3.1 g/dL at 07/24/2024 7:38 AM INR(ratio): 1.5 at 07/24/2024 7:38 AM Age at listin years Sex: Male at 07/24/2024 7:38 AM Body mass index is 24.54 kg/m . 12/25/23 08:13 12/25/23 08:19 ABO Rh O NEG O NEG 12/25/23 08:13 Ferritin 636 (H) Iron 137 Transferrin 178 12/25/23 08:13 Total Cholesterol (NMR) 104 Triglycerides 57 HDL 37 (L) LDL Calculated 56 12/25/23 08:13 Alpha-Fetoprotein Tumor Marker 3.0 PSA Total 0.6 12/25/23 08:13 Vitamin D, 25 Hydroxy 17.9 (L) 12/25/23 08:13 Hemoglobin A1c 4.4 Estimated Average Glucose 80 PTH Intact 546.1 (H) 12/07/22 13:03 Lwlfh-1-Mjsongjvhun 119 Pxibk-6-Kcsyipqtrrk Phenotype M1S Ceruloplasmin 25 Osmolality Calculated 301 (H) Oxalate 18.0 (H) 12/07/22 13:03 VELIA HEp-2 IgG Detected (H) VELIA Titer 1:160 ! VELIA IgG Detected ! VELIA Pattern Speckled ! VELIA Interpretive Comment See Note Cytoplasmic Pattern Titer 1:160 ! CYTOPLASMIC PATTERN AMA ! F-Actin Antibody IgG 11 Mitochondrial M2 Antibody 6.1 APL panel x 2 Latest Reference Range & Units 01/29/23 11:02 04/26/23 09:45 PT 12.1 - 14.8 Seconds 12.1 - 14.8 Seconds 17.3 (H) 19.5 (H) 18.3 (H) INR See Comment See Comment 1.4 1.7 1.5 APTT 23.0 - 38.4 Seconds 38.9 (H) PTT 07/02 Mix 32 - 48 sec 41 42 Reptilase Time <=21.9 sec 21.6 Not Applicable Thrombin Time 14.7 - 19.5 sec 19.7 (H) 19.2 Cardiolipin Antibody IgG <=14 GPL <10 <10 Cardiolipin Antibody IgM <=12 MPL <10 <10 Beta-2 Glycoprotein Antibody IgG <=20 SGU <10 <10 Beta-2 Glycoprotein Antibody IgM <=20 SMU <10 <10 04/26/23 09:45 04/26/23 09:46 dsDNA Antibody 15 Fofana/HOUSING ASSISTANT PROPERTY MANAGER Antibodies 2 Fofana (FRANCESCA) Antibody 6 Complement Activity Total CH50 44.8 Complement C3 74 (L) Complement C4 17 12/25/23 08:13 STACLOT-LA Buffer 54.6 STACLOT LA Delta Seconds 3.5 STACLOT-LA Phospholipid 51.1 Interpretation STACLOT-LA Negative 12/25/23 08:13 QuantiFERON-TB Gold Plus Negative QuantiFERON Plus TB1 Minus NIL 0.01 QuantiFERON Plus TB2 Minus NIL 0.00 QuantiFERON Mitogen Minus NIL 10.00 QuantiFERON Nil Value 0.00 12/25/23 08:13 Treponema pallidum Antibody Non-reactive HIV Antigen/Antibody 1 & 2 Non-reactive 12/25/23 08:13 Cytomegalovirus Antibody IgG >10.00 (H) Katie-[place] Virus Antibody IgG Viral Capsid Antigen >750.0 (H) Measles (Rubeola) Antibody IgG >300.0 Mumps Virus Antibody IgG 10.8 Rubella Antibody IgG 109.0 Varicella zoster Virus Antibody IgG >4000.0 12/25/23 08:13 Hepatitis A Virus Antibody Total Positive ! HBc Antibody Total Non-reactive Hepatitis B Surface Antibody Quantitative 671.7 (H) Hepatitis B Virus Surface Antibody Reactive ! Hepatitis B Virus Surface Antigen Non-reactive Hepatitis C Antibody Non-reactive 12/25/23 08:13 Strongyloides Antibody IgG 0.7 Toxoplasma Antibody IgG <3.0 12/25/23 08:13 Cotinine 239 Nicotine 20 03/17/24 11:23 Alcohol Random Urine Negative Amphetamines Urine Screen Negative Barbiturates Urine Screen Negative Benzodiazepines Urine Screen Negative THC Urine Screen Negative Cocaine Urine Screen Negative Methadone Urine Screen Negative Opiates Urine Negative Phencyclidine Urine Screen Negative Propoxyphene Urine Screen Negative 04/26/23 09:45 10/30/23 04:24 PEth 16:0/18.1 (POPEth) <10 <10 PEth 16:0/18.2 (PLPEth) <10 <10 Has completed Hep B vaccination series-scanned into Epic #1 alcohol associated liver disease, prior decompensation, currently stable with alcohol abstinence, prior was evaluated and subsequently not listed for simultaneous liver kidney transplant because of noncompliance and alcohol use #2 end-stage renal disease, 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, did not pursue [facility] eval #3 alcohol use disorder, currently in remission and sobriety for about 18 months, completed alcohol relapse prevention counseling #4 esophageal variceal bleeding, variceal band ligation and nadolol for secondary prevention HR 65 #5 spontaneous bacterial peritonitis, prior on ciprofloxacin renally dosed, was discontinued with resolution of ascites #6 hypertension #7 thrombocytopenia of chronic liver disease #8 ascites, currently none and has not needed a paracentesis in about 2 years, currently not on diuretics #9 incomplete colonoscopy #10 prior hepatic encephalopathy, currently not taking any medications #11 seizure disorder, stable on Keppra CXR 10/29/23 Mild cardiomegaly and a small right-sided pleural effusion.. Cardiomegaly is new since 12/26/2022. Mild bibasilar opacities, atelectasis versus mild airspace disease such as pneumonia. Bilat carotid doppler study 02/13/23 There is no significant atherosclerotic plaque noted in the left common carotid artery. There is heterogeneous, irregular atherosclerotic plaque noted in the left internal carotid artery. There is heterogeneous, irregular atherosclerotic plaque noted in the right common carotid artery. There is heterogeneous, irregular atherosclerotic plaque noted in the right internal carotid artery. MRI ABD 12/25/23 1.Arterially enhancing observations measuring up to 7 mm in hepatic segments 2 and 6 as explained above. (LR 3). 2.Hepatic cirrhosis with sequelae of portal hypertension including small volume ascites. 3.Cholelithiasis. CT pelvis 01/21/24 1.Hepatic cirrhosis with sequela of portal hypertension including small volume ascites, splenorenal shunt and splenomegaly. 2.Right inguinal hernia containing fat and multiple loops of bowel. 3.No atherosclerotic calcification is present in the bilateral external iliac arteries. 4.Prostatomegaly. 5.Cholelithiasis. 10/08/19 08:51 12/07/22 13:03 12/25/23 08:13 PSA Total 0.7 0.8 0.6 EKG 10/31/23 Echo Complete 11/01/23 Left Ventricle: Left ventricle is severely dilated. Normal wall thickness. Ventricular mass is normal. Normal systolic function. EF by 2D Purdy biplane is 69%. Normal wall motion. Diastolic function is indeterminate. Aorta: Normal sized sinus of Valsalva (aortic root). Mildly enlarged ascending aorta. Ascending Aorta is 4.02 cm. Pericardium: Small pericardial effusion present. Aortic Valve: Valve structure is trileaflet. Mildly calcified leaflets. Mild regurgitation. Mild stenosis. AV mean gradient is 20 mmHg. AV area by peak velocity is 1.8 cm2. Left Atrium: Left atrium is severely dilated. Right Atrium: Right atrium is mildly dilated. Study Details Study quality was good. A complete 2D, color Doppler, spectral Doppler and M- mode echocardiogram was performed. The apical, parasternal, subcostal and suprasternal views were obtained. Patient exhibited sinus rhythm. Myocardial Findings Left Ventricle Left ventricle is severely dilated. Normal wall thickness. Ventricular mass is normal. Normal systolic function. EF by 2D Purdy biplane is 69%. Normal wall motion. Diastolic function is indeterminate. Right Ventricle Right ventricle size is normal. Normal systolic function. Left Atrium Left atrium is severely dilated. Right Atrium Right atrium is mildly dilated. IVC/SVC IVC diameter is less than or equal to 21 mm and decreases greater than 50% during inspiration; therefore the estimated right atrial pressure is normal (~3 mmHg). Mitral Valve Mildly calcified leaflets. Mild regurgitation. No stenosis. Tricuspid Valve Valve structure is normal. Mild regurgitation. The pulmonary artery systolic pressure is normal (under 35 mmHg). No stenosis. Aortic Valve Valve structure is trileaflet. Mildly calcified leaflets. Mild regurgitation. Mild stenosis. AV mean gradient is 20 mmHg. AV area by peak velocity is 1.8 cm2. Pulmonic Valve Valve structure is normal. No regurgitation. No stenosis. Aorta Normal sized sinus of Valsalva (aortic root). Mildly enlarged ascending aorta. Ascending Aorta is 4.02 cm. Pericardium Small pericardial effusion present. DSE 12/25/23 * Left ventricular systolic function is hyperdynamic with an estimated ejection fraction of 75% by biplane method of disks. * Normal left ventricular systolic function with no regional wall motion abnormalities. * Right ventricular systolic function is normal. * Right ventricle chamber size are normal. * Agitated saline contrast study at rest and with Valsalva is negative for a shunt. * The aortic root at the sinus of Valsalva is dilated measuring 4.0 cm with an index of 2.0 cm/m2. * Suboptimal heart rate response, 56% of maximal predicted heart rate achieve. * No ischemia on EKG stress at the achieved work load. * Dobutamine stress echocardiogram is non diagnostic due to low heart rate response. No ischemia at the achieved work load. Stress Echo Findings Left Ventricle Suboptimal heart rate response, 56% of maximal predicted heart rate achieve. Dobutamine stress echocardiogram is non diagnostic due to low heart rate response. No ischemia at the achieved work load. NM VANNESSA 01/09/24 1. No evidence of myocardial infarction or stress-induced ischemia. 2. Normal left ventricular wall motion and thickening. 3. The calculated left ventricular ejection fraction of 58%. 4. Calcium score is consistent with the 99th percentile for age and race matched control. His cath from 2019 was widely open. ESRD patients tend to have calcium. I think it is probably unlikely that he has stenosis. That said, I would be glad to do cath if that helps. Thanks for asking, Marylu EGD 09/13/23 - Z-line regular, 42 cm from the incisors. - Grade I and small (< 5 mm) esophageal varices. - Portal hypertensive gastropathy. - Normal examined duodenum. - No specimens collected Colonoscopy 12/05/21 Repeat due 2026 Terminal ileum: distal 5 cm normal. Ascending, Transverse, Descending, Sigmoid colon and Rectum including retroflexion normal. Cecum: 5 mm sessile polyp removed with cold biopsy forceps without bleed. No masses, AVMs, colitis or diverticulosis seen. No complications, blood loss or implants. ASSESSMENT AND PLAN: One polyp removed and family history of colon cancer: if no cancer repeat colonoscopy in five years. Thank you for allowing me to care for your patient. He will follow-up with Dr. Pena as needed. Sin Rose M.D. Path: Final Pathologic Diagnosis CECAL POLYP, BIOPSY: FRAGMENTS OF SERRATED POLYP (SEE COMMENT) COMMENT Per the operative note, the cecum showed a 5 mm polyp, which was removed. The cecal polyp biopsy shows small fragments of serrated polyp, which are largely tangentially cut, however, in this location, is favored to represent an early sessile serrated lesion. Panorex 12/27/23 All third molars are absent. There are dental restorations. No significant dental disease is evident. There is no periapical abscess. The mandible and temporomandibular joints are intact. No periapical abscess. Dexa 12/26/22 LEFT FEMORAL NECK: Bone mineral density (g/cm2): 0.779 Current T-score: -1.1 LUMBAR SPINE (L1-L4): Bone mineral density (g/cm2): 1.317 Current T-score: 2.1 BONE DENSITY ASSESSMENT: WHO Category: Osteopenia Dexa 02/06/24 PT frailty assessment Liver Frailty Score Frailty Index Value: 3.11 (12/07/22 0900) RD 01/30/24 Transplant Nutrition Evaluation BMI: 24.5, Overweight. Pt remains a good candidate for a Liver/Kidney Transplant from a Nutrition standpoint. SW 11/23/23 Clinical Social Work Impression: It is the impression of this manager social services that Jj Cuello has several positive factors for Liver/Kidney transplant candidacy including knowledge of illness, sufficient insurance coverage, stable financial situation for post transplant needs, adequate support system, and appropriate discharge plan. Pt has committed to lifelong abstinence and will maintain alcohol free household RP/Provider impression scanned to file Court docs scanned to file Provider impression charted 11/20 Plan: meat process worker to provide supportive services as needed. Patient appears to be a reasonable candidate for transplant from a psychosocial perspective. Post transplant arrangement forms are needed prior to being listed. Psychiatric Consult Recommended: no Transplant Gold Reclaimer: Tala Villalta LCSW Liver Transplant Education 12/07/2022 Linh Forde, bed and breakfast cookBrand Ambassadors Promotional Sales ENT 11/29/22 - +chew tobacco Findings: -No mucosal lesions seen. Normal vocal cord mobility. Disposition: The patient tolerated procedure well. Complications: None Transplant Surgery Consultation 01/29/23 I believe Mr. Cuello is a Good candidate for liver and kidney transplant. At this time the patient needs the following prior to committee presentation: Neurology consult and clearance Nephrology consult APLA given speckled VELIA positivity Hep B vaccine series All listing decisions will be made in the listing committee and are final. Amelia Corral MD chrome tanning drum operator Transplant Surgery [facility] Transplant Surgery Consultation 01/21/24 Dr. Corral - need note Transplant Nephrology Consultation 01/29/23 I consider the patient an excellent candidate for a simultaneous Liver-Kidney Transplantation. The patient needs ECHO of heart due to a grade 2-3/6 systolic murmur all over the anterior precordium radiating to carotids and anterior Lt axillary line. Also check Anti-DS-DNA Ab, Anti-Fofana Ab, Anti-HOUSING ASSISTANT PROPERTY MANAGER Ab, C3, C4, CH50, Lupus anticoagulants titer. - Return to Clinic as needed. - Discussed health maintenance, including regular aerobic exercise, low fat, low salt diet, and periodic exams. Sameera Fitzgerald MD Renal Attending Transplant Nephrology Consultation 01/21/24 Dr. Fitzgerald Verified will qualify for SLK - need note Neurology Consultation - hx seizures 04/26/23 Assessment/Plan: Jj Cuello is a 57 year old male with history of two lifetime events concerning for seizures. Initial seizure occurred following a head trauma, likely provoked seizure (04/2021). Patient started on levetiracetam 500mg BID. Second event concerning for seizure (07/2021), occurred during dialysis. Levetiracetam increased to 750mg BID, patient remains on current dosing. Denies any recurrent events. -Extended EEG -Obtain levetiracetam level -After above testing, discussed risk vs. benefit of continuing ASM. Given patient is still driving and working, likely patient would benefit from remaining on medication. -Will plan to adjust to renal dosing: daily dosing with supplement dosing after dialysis Follow-up in 3-4 months or sooner if problems arise Patient agrees and voices understanding of plan of care listed above. Neurology 4 Assessment and Plan: 57 year old male with medical hx signifcant for EtOH cirrhosis c/b ascites and EV s/p banding, ESRD 2/2 MPGN on iHD MWF, seizure disorder on Keppra consulted for encephalopathy. Differential diagnoses are seizure vs HD dysequilibrium syndrome vs hepatic encephalopathy vs uremic encephalopathy. - Recommend Brain MRI wwo - Please obtain continuous video EEG monitoring - Avoid sedation and sedative medications - Continue Keppra 750 mg BID - Maintain normotension, normonatremia and normothermia. - Rest of care per primary team Will be discussed with General Neurology Attending Physician, Dr. Trejo. 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 10/13/2016 Obstructive sleep apnea 08/14/2013 Resolved Problems Problem Noted Date Diagnosed Date Resolved Date ESRD (end stage renal disease) 06/11/2024 06/11/2024 Immunizations Name Administration Dates Next Due [employer] PRIMARY 18+YR 09/16/2020 FLU VACCINE TRI IIV3 SPLIT I M (FLUVIRIN) 07/13/2015 FLU, HISTORIC VACCINE 03/28/2022 HEP B VACCINE, ADULT 3 DOSE 11/22/2019 INFLUENZA VACCINE 05/31/2021, 0,04/27/2017,2015,04/02/2015 PNEUMOCOCCAL PCV20 CONJ VAC IM 11/13/2023 PNEUMOCOCCAL PPSV23 11/02/2021 TDAP (7yrs+) 12/24/2017 Zoster Hzv Vacc Recombinant Inj Im 11/13/2023 iNFLUENZA VACCINE, RECOM-VENTURA, QUADR. (FLUBLOCK QUADRIVALENT; 18Y+) (RIV4) 03/28/2022 Social History Tobacco Use Types Packs/Day Years Used Date Smoking Tobacco: Never Passive Smoke Exposure: Never Smokeless Tobacco: Former Chew Tobacco Cessation:Counseling Given: Not Answered Comments:Some days Alcohol Use Standard Drinks/Week Comments [...] you are drinking? Patient does not drink Q3: How often do you have si x or more drinks on one occasion? Never 06/12/2024 Overall Financial Resource Strain (CARDIA) Answe r Date Recorded How hard is it for you to pa y for the very basics like food, housing, medical care, and heating? Not hard at all 06/12/2024 [facility] - Occupational Stress [...] place to sleep or slept in a residential (including now)? No 11/01/2023 Housing Stability Vital Sign Answer Armaan e Recorded In the last 12 months, was t here a time when you were not able to pay the mortgage or rent on time? No 06/12/2024 In the past 12 months, how m any times have you moved where you were living? 0 06/12/2024 At any time in the past [facility], were you homeless or living in a residential (including now)? No 06/12/2024 Sex and Gender Information Value Date Recorded Sex Assigned at Not on file Gender Identity Not on file Sexual Orientation Not on file Last Filed Vital Signs Vital Sign Reading Time Taken Comments Blood Pressure 129/57 08/05/2024 12:50 PM BUSINESS INFO CONSULTANT Pulse 56 08/05/2024 12:50 PM BUSINESS INFO CONSULTANT Temperature 36.5 C (97.7 F) 08/05/2024 12:50 PM BUSINESS INFO CONSULTANT Respiratory Rate 14 08/05/2024 12:50 PM BUSINESS INFO CONSULTANT Oxygen Saturation 100% 08/05/2024 12:50 PM BUSINESS INFO CONSULTANT Inhaled Oxygen Concentration 30% 10/31/2023 5 :04 PM CDT Weight 77.1 kg (170 lb) 08/05/2024 12:50 PM BUSINESS INFO CONSULTANT Height 177.8 cm (5' 10 ) 08/05/2024 12:50 PM BUSINESS INFO CONSULTANT Body Mass Index 24.39 08/05/2024 12:50 PM BUSINESS INFO CONSULTANT Functional Status Functional Status Response Date of [...] person have difficulty concentrating/remembering/making decisions? No 06/12/2024 Plan of Treatment Upcoming Encounters Date Type Department Care Team (Late st Contact Info) Description 08/14/2024 10:45 AM BUSINESS INFO CONSULTANT Office Visit [facility] - Orthopedics [address] [place] [address], [place] [address] Yaima Dobbins MD [address] [place] [address] [place] [address] Goals Goal Patient Goal Type Associated Problems Recent Progress Patient-Stated? Author Medication Management General On track( 024 12:24 PM CDT) No Imelda Solares, DIVINE Note: Expected end date: ongoing Interventions: Take all medications as prescribed Let your doctor know right away about any changes in your medications Make sure to request a refill of your medication at least one week prior to your last dose Medical Devices Implanted Type Area Database Programmer Device Identifier Shelf Expiration Date Model / Serial / Lot Kit Durathane Drflw Embosafe Chrnc Dlys Implanted:Qty: 1 on 03/07/2019 by Trav Merrill MD at [facility] Right: Chest [employer] 03/31/2021 [id number] / / [id number] Graft Vasc 6mm 40cm Ptfe Flixene Sldr - [id number] Implanted:Qty: 1 on 02/21/2022 by Kiko Pena MD at [facility] Left: Arterial Maquet 07/20/2023 [id number] / [id number] / Mesh Srg Parietex Progrip 14x9cm Slf Implanted:Qty: 1 on 07/11/2024 by Theron Medellin MD at [facility] Right: Inguinal [employer] [id number] 08/29/2028 [id number] / / [id number] Procedures Procedure Name Priority Date/Time Associated Diagnosis Comments COMPREHENSIVE METABOLIC PANEL STAT 08/05/2024 2:28 PM BUSINESS INFO CONSULTANT GLUCOSE - POINT OF CARE Routine 08/05/2024 2:27 PM BUSINESS INFO CONSULTANT DIFFERENTIAL MANUAL Routine 07/24/2024 7 :38 AM BUSINESS INFO CONSULTANT Pre-liver transplant, listed Pre-kidney transplant, listed Alcoholic cirrhosis of liver with ascites (HCC) ESRD on dialysis (HCC) Stage 5 chronic kidney disease (HCC) MPGN (membranoprolifer ative glomerulonephriti sahil) PT-INR [facility] Routine 07/24/2024 7:38 AM BUSINESS INFO CONSULTANT Pre-liver transplant, listed Pre-kidney transplant, listed Alcoholic cirrhosis of liver with ascites (HCC) ESRD on dialysis (HCC) Stage 5 chronic kidney disease (HCC) MPGN (membranoprolifer ative glomerulonephriti sahil) CBC W AUTO DIFFERENTIAL Routine 07/24/2024 7:38 AM BUSINESS INFO CONSULTANT Pre-liver transplant, listed Pre-kidney transplant, listed Alcoholic cirrhosis of liver with ascites (HCC) ESRD on dialysis (HCC) Stage 5 chronic kidney disease (HCC) MPGN (membranoprolifer ative glomerulonephriti sahil) COMPREHENSIVE METABOLIC PANEL Routine 07/24/2024 7:38 AM BUSINESS INFO CONSULTANT Pre-liver transplant, listed Pre-kidney transplant, listed Alcoholic cirrhosis of liver with ascites (HCC) ESRD on dialysis (HCC) Stage 5 chronic kidney disease (HCC) MPGN (membranoprolifer ative glomerulonephriti sahil) APHERESIS/TRANSFUSION ORDER 07/14/2024 1:38 PM BUSINESS INFO CONSULTANT PREPARE RBC LEUKOREDUCED UNIT Routine 07/12/2024 1:17 AM BUSINESS INFO CONSULTANT ESRD (end stage renal disease) on dialysis (HCC) Hepatic cirrhosis, unspecified hepatic cirrhosis type, unspecified whether ascites present (HCC) PATHOLOGY TISSUE Routine 07/11/2024 8:43 AM BUSINESS INFO CONSULTANT Inguinal hernia without obstruction or gangrene, recurrence not specified, unspecified laterality ENDOTRACHEAL TUBE NOTE Routine 7:55 AM BUSINESS INFO CONSULTANT TRANSFUSE PLATELET PHERESIS UNIT(S) Routine 07/11/2024 7:14 AM BUSINESS INFO CONSULTANT IL RPR 1ST INGUN HRNA AGE 5 YRS/> REDUCIBLE 07/11/2024 7:04 AM BUSINESS INFO CONSULTANT Inguinal hernia without obstruction or gangrene, recurrence not specified, unspecified laterality Case Notes KW 07/10 Special Needs Supine PREPARE PLATELET PHERESIS UNIT(S) Routine 07/11/2024 6:54 AM BUSINESS INFO CONSULTANT ESRD (end stage renal disease) on dialysis (HCC) Hepatic cirrhosis, unspecified hepatic cirrhosis type, unspecified whether ascites present (HCC) TYPE + SCREEN PANEL STAT 07/11/2024 5 :57 AM BUSINESS INFO CONSULTANT Pre-op evaluation POTASSIUM WHOLE BLD STAT 07/11/2024 5 :57 AM BUSINESS INFO CONSULTANT Pre-op evaluation TYPE + SCREEN PANEL STAT 07/08/2024 12:56 PM BUSINESS INFO CONSULTANT Pre-op evaluation PT-INR [facility] Routine 07/08/2024 12:56 PM BUSINESS INFO CONSULTANT Inguinal hernia of right side without obstruction or gangrene Alcoholic cirrhosis of liver without ascites (HCC) Pre-op evaluation CBC W AUTO DIFFERENTIAL Routine 07/08/2024 12:56 PM BUSINESS INFO CONSULTANT Inguinal hernia of right side without obstruction or gangrene Alcoholic cirrhosis of liver without ascites (HCC) Pre-op evaluation COMPREHENSIVE METABOLIC PANEL Routine 07/08/2024 12:56 PM BUSINESS INFO CONSULTANT Inguinal hernia of right side without obstruction or gangrene Alcoholic cirrhosis of liver without ascites (HCC) Pre-op evaluation PT-INR [facility] Routine 06/26/2024 7:12 AM BUSINESS INFO CONSULTANT Pre-liver transplant, listed Pre-kidney transplant, listed Alcoholic cirrhosis of liver with ascites (HCC) ESRD on dialysis (HCC) Stage 5 chronic kidney disease (HCC) MPGN (membranoprolifer ative glomerulonephriti sahil) CBC W AUTO DIFFERENTIAL Routine 06/26/2024 7:12 AM BUSINESS INFO CONSULTANT Pre-liver transplant, listed Pre-kidney transplant, listed Alcoholic cirrhosis of liver with ascites (HCC) ESRD on dialysis (HCC) Stage 5 chronic kidney disease (HCC) MPGN (membranoprolifer ative glomerulonephriti sahil) COMPREHENSIVE METABOLIC PANEL Routine 06/26/2024 7:12 AM BUSINESS INFO CONSULTANT Pre-liver transplant, listed Pre-kidney transplant, listed Alcoholic cirrhosis of liver with ascites (HCC) ESRD on dialysis (HCC) Stage 5 chronic kidney disease (HCC) MPGN (membranoprolifer ative glomerulonephriti sahil) CBC W AUTO DIFFERENTIAL Routine 06/18/2024 8:18 AM BUSINESS INFO CONSULTANT Acute pain of right knee PT-INR [facility] Routine 06/18/2024 8:18 AM BUSINESS INFO CONSULTANT Pre-liver transplant, listed Pre-kidney transplant, listed Alcoholic cirrhosis of liver with ascites (HCC) ESRD on dialysis (HCC) Stage 5 chronic kidney disease (HCC) MPGN (membranoprolifer ative glomerulonephriti sahil) COMPREHENSIVE METABOLIC PANEL Routine 06/18/2024 8:18 AM BUSINESS INFO CONSULTANT Pre-liver transplant, listed Pre-kidney transplant, listed Alcoholic cirrhosis of liver with ascites (HCC) ESRD on dialysis (HCC) Stage 5 chronic kidney disease (HCC) MPGN (membranoprolifer ative glomerulonephriti sahil) PT-INR [facility] AM Draw 06/14/2024 12:37 AM BUSINESS INFO CONSULTANT MAGNESIUM BLOOD AM Draw 06/14/2024 12:37 AM BUSINESS INFO CONSULTANT CBC W/O DIFFERENTIAL AM Draw 06/14/2024 12:37 AM BUSINESS INFO CONSULTANT BASIC METABOLIC PANEL (CALCIUM TOTAL) AM Draw 06/14/2024 12:37 AM BUSINESS INFO CONSULTANT TRANSFUSE RED BLOOD CELL LEUKOREDUCED UNIT(S) Routine 06/13/2024 11:23 AM BUSINESS INFO CONSULTANT PREPARE RBC LEUKOREDUCED UNIT PENDING DISCHARGE 06/13/2024 11:00 AM BUSINESS INFO CONSULTANT VITAMIN B12 Routine 06/13/2024 8:48 AM BUSINESS INFO CONSULTANT FOLATE Routine 06/13/2024 8:48 AM BUSINESS INFO CONSULTANT HEPATIC FUNCTION PANEL Routine 8:48 AM BUSINESS INFO CONSULTANT DIFFERENTIAL MANUAL Routine 06/13/2024 12:56 AM BUSINESS INFO CONSULTANT CBC W AUTO DIFFERENTIAL Routine 06/13/2024 12:56 AM BUSINESS INFO CONSULTANT PT-INR [facility] AM Draw 06/13/2024 12:56 AM BUSINESS INFO CONSULTANT MAGNESIUM BLOOD AM Draw 06/13/2024 12:56 AM BUSINESS INFO CONSULTANT CBC W/O DIFFERENTIAL AM Draw 06/13/2024 12:56 AM BUSINESS INFO CONSULTANT BASIC METABOLIC PANEL (CALCIUM TOTAL) AM Draw 06/13/2024 12:56 AM BUSINESS INFO CONSULTANT HEMODIALYSIS INPATIENT Routine 4:05 PM BUSINESS INFO CONSULTANT TYPE + SCREEN PANEL Routine 06/12/2024 1 :23 AM BUSINESS INFO CONSULTANT DIFFERENTIAL MANUAL Add on 06/12/2024 1 :23 AM BUSINESS INFO CONSULTANT IRON + TRANSFERRIN PANEL Routine 06/12/2024 1:23 AM BUSINESS INFO CONSULTANT FERRITIN Routine 06/12/2024 1:23 AM BUSINESS INFO CONSULTANT PTH INTACT W/O CALCIUM AM Draw 1:23 AM BUSINESS INFO CONSULTANT PT-INR [facility] AM Draw 06/12/2024 1:23 AM BUSINESS INFO CONSULTANT MAGNESIUM BLOOD AM Draw 06/12/2024 1:23 AM BUSINESS INFO CONSULTANT CBC W/O DIFFERENTIAL AM Draw 06/12/2024 1:23 AM BUSINESS INFO CONSULTANT BASIC METABOLIC PANEL (CALCIUM TOTAL) AM Draw 06/12/2024 1:23 AM BUSINESS INFO CONSULTANT EKG 12-LEAD STAT 06/11/2024 7:45 PM BUSINESS INFO CONSULTANT Acute pain of right knee ESRD (end stage renal disease) (HCC) Hepatic cirrhosis, unspecified hepatic cirrhosis type, unspecified whether ascites present (HCC) Hyperkalemia COMPREHENSIVE METABOLIC PANEL STAT 06/11/2024 6:[address] KNEE RIGHT WO CONTRAST STAT 06/11/2024 5:55 PM BUSINESS INFO CONSULTANT Acute pain of right knee XR KNEE RIGHT 3VW STAT 06/11/2024 3:4 1 PM BUSINESS INFO CONSULTANT Acute pain of right knee C-REACTIVE PROTEIN JOSUÉ 06/11/2024 8: 18 AM BUSINESS INFO CONSULTANT ERYTHROCYTE SEDIMENTATION RATE STAT 06/11/2024 8:18 AM BUSINESS INFO CONSULTANT PHOSPHORUS BLOOD STAT 06/11/2024 8:18 AM BUSINESS INFO CONSULTANT MAGNESIUM BLOOD STAT 06/11/2024 8:18 AM BUSINESS INFO CONSULTANT COMPREHENSIVE METABOLIC PANEL STAT 06/11/2024 8:18 AM BUSINESS INFO CONSULTANT CBC W AUTO DIFFERENTIAL STAT 06/11/2024 8:18 AM BUSINESS INFO CONSULTANT COMPREHENSIVE METABOLIC PANEL Routine 05/28/2024 6:51 AM BUSINESS INFO CONSULTANT ESRD (end stage renal disease) on dialysis (HCC) Alcoholic cirrhosis of liver without ascites (HCC) PT-INR [facility] Routine 05/28/2024 6:51 AM BUSINESS INFO CONSULTANT ESRD (end stage renal disease) on dialysis (HCC) Alcoholic cirrhosis of liver without ascites (HCC) BILIRUBIN DIRECT Routine 05/28/2024 6:51 AM BUSINESS INFO CONSULTANT ESRD (end stage renal disease) on dialysis (HCC) Alcoholic cirrhosis of liver without ascites (HCC) CBC W/O DIFFERENTIAL Routine 05/28/2024 6:51 AM BUSINESS INFO CONSULTANT ESRD (end stage renal disease) on dialysis (HCC) Alcoholic cirrhosis of liver without ascites (HCC) MAGNESIUM BLOOD Routine 05/28/2024 6:51 AM BUSINESS INFO CONSULTANT ESRD (end stage renal disease) on dialysis (HCC) Alcoholic cirrhosis of liver without ascites (HCC) PHOSPHORUS BLOOD Routine 05/28/2024 6:51 AM BUSINESS INFO CONSULTANT ESRD (end stage renal disease) on dialysis (HCC) Alcoholic cirrhosis of liver without ascites (HCC) COMPREHENSIVE METABOLIC PANEL Routine 05/27/2024 3:07 AM BUSINESS INFO CONSULTANT ESRD (end stage renal disease) on dialysis (HCC) Alcoholic cirrhosis of liver without ascites (HCC) PT-INR [facility] Routine 05/27/2024 3:07 AM BUSINESS INFO CONSULTANT ESRD (end stage renal disease) on dialysis (HCC) Alcoholic cirrhosis of liver without ascites (HCC) BILIRUBIN DIRECT Routine 05/27/2024 3:07 AM BUSINESS INFO CONSULTANT ESRD (end stage renal disease) on dialysis (HCC) Alcoholic cirrhosis of liver without ascites (HCC) CBC W/O DIFFERENTIAL Routine 05/27/2024 3:07 AM BUSINESS INFO CONSULTANT ESRD (end stage renal disease) on dialysis (HCC) Alcoholic cirrhosis of liver without ascites (HCC) MAGNESIUM BLOOD Routine 05/27/2024 3:07 AM BUSINESS INFO CONSULTANT ESRD (end stage renal disease) on dialysis (HCC) Alcoholic cirrhosis of liver without ascites (HCC) PHOSPHORUS BLOOD Routine 05/27/2024 3:07 AM BUSINESS INFO CONSULTANT ESRD (end stage renal disease) on dialysis (HCC) Alcoholic cirrhosis of liver without ascites (HCC) COMPREHENSIVE METABOLIC PANEL Routine 05/26/2024 4:20 AM BUSINESS INFO CONSULTANT ESRD (end stage renal disease) on dialysis (HCC) Alcoholic cirrhosis of liver without ascites (HCC) PT-INR [facility] Routine 05/26/2024 4:20 AM BUSINESS INFO CONSULTANT ESRD (end stage renal disease) on dialysis (HCC) Alcoholic cirrhosis of liver without ascites (HCC) BILIRUBIN DIRECT Routine 05/26/2024 4:20 AM BUSINESS INFO CONSULTANT ESRD (end stage renal disease) on dialysis (HCC) Alcoholic cirrhosis of liver without ascites (HCC) CBC W/O DIFFERENTIAL Routine 05/26/2024 4:20 AM BUSINESS INFO CONSULTANT ESRD (end stage renal disease) on dialysis (HCC) Alcoholic cirrhosis of liver without ascites (HCC) MAGNESIUM BLOOD Routine 05/26/2024 4:20 AM BUSINESS INFO CONSULTANT ESRD (end stage renal disease) on dialysis (HCC) Alcoholic cirrhosis of liver without ascites (HCC) PHOSPHORUS BLOOD Routine 05/26/2024 4:20 AM BUSINESS INFO CONSULTANT ESRD (end stage renal disease) on dialysis (HCC) Alcoholic cirrhosis of liver without ascites (HCC) COMPREHENSIVE METABOLIC PANEL Routine 05/25/2024 3:51 AM BUSINESS INFO CONSULTANT ESRD (end stage renal disease) on dialysis (HCC) Alcoholic cirrhosis of liver without ascites (HCC) PT-INR [facility] Routine 05/25/2024 3:51 AM BUSINESS INFO CONSULTANT ESRD (end stage renal disease) on dialysis (HCC) Alcoholic cirrhosis of liver without ascites (HCC) BILIRUBIN DIRECT Routine 05/25/2024 3:51 AM BUSINESS INFO CONSULTANT ESRD (end stage renal disease) on dialysis (HCC) Alcoholic cirrhosis of liver without ascites (HCC) CBC W/O DIFFERENTIAL Routine 05/25/2024 3:51 AM BUSINESS INFO CONSULTANT ESRD (end stage renal disease) on dialysis (HCC) Alcoholic cirrhosis of liver without ascites (HCC) MAGNESIUM BLOOD Routine 05/25/2024 3:51 AM BUSINESS INFO CONSULTANT ESRD (end stage renal disease) on dialysis (HCC) Alcoholic cirrhosis of liver without ascites (HCC) PHOSPHORUS BLOOD Routine 05/25/2024 3:51 AM BUSINESS INFO CONSULTANT ESRD (end stage renal disease) on dialysis (HCC) Alcoholic cirrhosis of liver without ascites (HCC) HEMODIALYSIS INPATIENT Routine 12:00 AM BUSINESS INFO CONSULTANT XR PANOREX Routine 05/24/2024 2:12 PM BUSINESS INFO CONSULTANT 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) COMPREHENSIVE METABOLIC PANEL Routine 05/24/2024 3:08 AM BUSINESS INFO CONSULTANT ESRD (end stage renal disease) on dialysis (HCC) Alcoholic cirrhosis of liver without ascites (HCC) PT-INR [facility] Routine 05/24/2024 3:08 AM BUSINESS INFO CONSULTANT ESRD (end stage renal disease) on dialysis (HCC) Alcoholic cirrhosis of liver without ascites (HCC) BILIRUBIN DIRECT Routine 05/24/2024 3:08 AM BUSINESS INFO CONSULTANT ESRD (end stage renal disease) on dialysis (HCC) Alcoholic cirrhosis of liver without ascites (HCC) CBC W/O DIFFERENTIAL Routine 05/24/2024 3:08 AM BUSINESS INFO CONSULTANT ESRD (end stage renal disease) on dialysis (HCC) Alcoholic cirrhosis of liver without ascites (HCC) MAGNESIUM BLOOD Routine 05/24/2024 3:08 AM BUSINESS INFO CONSULTANT ESRD (end stage renal disease) on dialysis (HCC) Alcoholic cirrhosis of liver without ascites (HCC) PHOSPHORUS BLOOD Routine 05/24/2024 3:08 AM BUSINESS INFO CONSULTANT ESRD (end stage renal disease) on dialysis (HCC) Alcoholic cirrhosis of liver without ascites (HCC) PTH INTACT W/O CALCIUM Routine 8:46 AM BUSINESS INFO CONSULTANT FERRITIN Routine 05/23/2024 8:46 AM BUSINESS INFO CONSULTANT VITAMIN D 25-HYDROXY Routine 05/23/2024 3:23 AM BUSINESS INFO CONSULTANT IRON + TRANSFERRIN PANEL Routine 05/23/2024 3:23 AM BUSINESS INFO CONSULTANT VANCOMYCIN LEVEL RANDOM Routine 05/23/2024 3:23 AM BUSINESS INFO CONSULTANT COMPREHENSIVE METABOLIC PANEL Routine 05/23/2024 3:23 AM BUSINESS INFO CONSULTANT ESRD (end stage renal disease) on dialysis (HCC) Alcoholic cirrhosis of liver without ascites (HCC) PT-INR [facility] Routine 05/23/2024 3:23 AM BUSINESS INFO CONSULTANT ESRD (end stage renal disease) on dialysis (HCC) Alcoholic cirrhosis of liver without ascites (HCC) BILIRUBIN DIRECT Routine 05/23/2024 3:23 AM BUSINESS INFO CONSULTANT ESRD (end stage renal disease) on dialysis (HCC) Alcoholic cirrhosis of liver without ascites (HCC) CBC W/O DIFFERENTIAL Routine 05/23/2024 3:23 AM BUSINESS INFO CONSULTANT ESRD (end stage renal disease) on dialysis (HCC) Alcoholic cirrhosis of liver without ascites (HCC) MAGNESIUM BLOOD Routine 05/23/2024 3:23 AM BUSINESS INFO CONSULTANT ESRD (end stage renal disease) on dialysis (HCC) Alcoholic cirrhosis of liver without ascites (HCC) PHOSPHORUS BLOOD Routine 05/23/2024 3:23 AM BUSINESS INFO CONSULTANT ESRD (end stage renal disease) on dialysis (HCC) Alcoholic cirrhosis of liver without ascites (HCC) GLUCOSE - POINT OF CARE Routine 05/22/2024 4:19 PM BUSINESS INFO CONSULTANT HEMODIALYSIS INPATIENT Routine 3:49 PM BUSINESS INFO CONSULTANT CHLAMYDIA + GC AMPLIFIED PROBE Routine 05/22/2024 1:26 PM BUSINESS INFO CONSULTANT GLUCOSE - POINT OF CARE Routine 05/22/2024 12:44 PM BUSINESS INFO CONSULTANT CULTURE BLOOD Timed 05/22/2024 9:38 AM BUSINESS INFO CONSULTANT CULTURE BLOOD Timed 05/22/2024 9:25 AM BUSINESS INFO CONSULTANT GLUCOSE - POINT OF CARE Routine 05/22/2024 8:09 AM BUSINESS INFO CONSULTANT VANCOMYCIN LEVEL RANDOM Routine 05/22/2024 2:55 AM BUSINESS INFO CONSULTANT COMPREHENSIVE METABOLIC PANEL Routine 05/22/2024 2:55 AM BUSINESS INFO CONSULTANT ESRD (end stage renal disease) on dialysis (HCC) Alcoholic cirrhosis of liver without ascites (HCC) PT-INR [facility] Routine 05/22/2024 2:55 AM BUSINESS INFO CONSULTANT ESRD (end stage renal disease) on dialysis (HCC) Alcoholic cirrhosis of liver without ascites (HCC) BILIRUBIN DIRECT Routine 05/22/2024 2:55 AM BUSINESS INFO CONSULTANT ESRD (end stage renal disease) on dialysis (HCC) Alcoholic cirrhosis of liver without ascites (HCC) CBC W/O DIFFERENTIAL Routine 05/22/2024 2:55 AM BUSINESS INFO CONSULTANT ESRD (end stage renal disease) on dialysis (HCC) Alcoholic cirrhosis of liver without ascites (HCC) MAGNESIUM BLOOD Routine 05/22/2024 2:55 AM BUSINESS INFO CONSULTANT ESRD (end stage renal disease) on dialysis (HCC) Alcoholic cirrhosis of liver without ascites (HCC) PHOSPHORUS BLOOD Routine 05/22/2024 2:55 AM BUSINESS INFO CONSULTANT ESRD (end stage renal disease) on dialysis (HCC) Alcoholic cirrhosis of liver without ascites (HCC) GLUCOSE - POINT OF CARE Routine 05/21/2024 4:15 PM BUSINESS INFO CONSULTANT GLUCOSE - POINT OF CARE Routine 05/21/2024 12:32 PM BUSINESS INFO CONSULTANT HEMODIALYSIS INPATIENT Routine 11:06 AM BUSINESS INFO CONSULTANT SYPHILIS ANTIBODY CASCADING REFLEX Routine 05/21/2024 2:29 AM BUSINESS INFO CONSULTANT HEPATITIS C AB SCREEN RFLX NAAT QUANT Routine 05/21/2024 2:29 AM BUSINESS INFO CONSULTANT HIV-1 HIV-2 ANTIBODY + HIV P24 AG PANEL STAT 05/21/2024 2:29 AM BUSINESS INFO CONSULTANT VANCOMYCIN LEVEL RANDOM Routine 05/21/2024 2:29 AM BUSINESS INFO CONSULTANT Pain and swelling of right knee COMPREHENSIVE METABOLIC PANEL Routine 05/21/2024 2:29 AM BUSINESS INFO CONSULTANT ESRD (end stage renal disease) on dialysis (HCC) Alcoholic cirrhosis of liver without ascites (HCC) PT-INR [facility] Routine 05/21/2024 2:29 AM BUSINESS INFO CONSULTANT ESRD (end stage renal disease) on dialysis (HCC) Alcoholic cirrhosis of liver without ascites (HCC) BILIRUBIN DIRECT Routine 05/21/2024 2:29 AM BUSINESS INFO CONSULTANT ESRD (end stage renal disease) on dialysis (HCC) Alcoholic cirrhosis of liver without ascites (HCC) CBC W/O DIFFERENTIAL Routine 05/21/2024 2:29 AM BUSINESS INFO CONSULTANT ESRD (end stage renal disease) on dialysis (HCC) Alcoholic cirrhosis of liver without ascites (HCC) MAGNESIUM BLOOD Routine 05/21/2024 2:29 AM BUSINESS INFO CONSULTANT ESRD (end stage renal disease) on dialysis (HCC) Alcoholic cirrhosis of liver without ascites (HCC) PHOSPHORUS BLOOD Routine 05/21/2024 2:29 AM BUSINESS INFO CONSULTANT ESRD (end stage renal disease) on dialysis (HCC) Alcoholic cirrhosis of liver without ascites (HCC) PATHOLOGY SMEAR BODY FLUID Routine 05/20/2024 6:41 PM BUSINESS INFO CONSULTANT CRYSTAL INDENTIFICATION SYNOVIAL FLUID Routine 05/20/2024 6:41 PM BUSINESS INFO CONSULTANT CULTURE WOUND+GRAM STAIN STAT 05/20/2024 6:41 PM BUSINESS INFO CONSULTANT CULTURE ANAEROBE Routine 05/20/2024 6:41 PM BUSINESS INFO CONSULTANT ENDOTRACHEAL TUBE NOTE Routine 6:24 PM BUSINESS INFO CONSULTANT IL PANKAJ SUBQ TISSUE 20 SQ CM/< 05/20/2024 6:03 PM BUSINESS INFO CONSULTANT Infection Special Needs 05/20 @ 0611 CW COMPREHENSIVE METABOLIC PANEL STAT 05/20/2024 3:32 AM BUSINESS INFO CONSULTANT ESRD (end stage renal disease) on dialysis (HCC) Alcoholic cirrhosis of liver without ascites (HCC) PT-INR [facility] STAT 05/20/2024 3:32 AM BUSINESS INFO CONSULTANT ESRD (end stage renal disease) on dialysis (HCC) Alcoholic cirrhosis of liver without ascites (HCC) BILIRUBIN DIRECT STAT 05/20/2024 3:32 AM BUSINESS INFO CONSULTANT ESRD (end stage renal disease) on dialysis (HCC) Alcoholic cirrhosis of liver without ascites (HCC) CBC W/O DIFFERENTIAL STAT 05/20/2024 3:32 AM BUSINESS INFO CONSULTANT ESRD (end stage renal disease) on dialysis (HCC) Alcoholic cirrhosis of liver without ascites (HCC) MAGNESIUM BLOOD STAT 05/20/2024 3:32 AM BUSINESS INFO CONSULTANT ESRD (end stage renal disease) on dialysis (HCC) Alcoholic cirrhosis of liver without ascites (HCC) PHOSPHORUS BLOOD STAT 05/20/2024 3:32 AM BUSINESS INFO CONSULTANT ESRD (end stage renal disease) on dialysis (HCC) Alcoholic cirrhosis of liver without ascites (HCC) TRANSFUSE PLATELET PHERESIS UNIT(S) Routine 05/20/2024 2:20 AM BUSINESS INFO CONSULTANT PREPARE PLATELET PHERESIS UNIT(S) STAT 05/20/2024 1:49 AM BUSINESS INFO CONSULTANT URIC ACID BLOOD STAT 05/19/2024 11:55 PM BUSINESS INFO CONSULTANT Pain and swelling of right knee CBC W/O DIFFERENTIAL STAT 05/19/2024 11:55 PM BUSINESS INFO CONSULTANT Pain and swelling of right knee Thrombocytopenia (HCC) HEMODIALYSIS INPATIENT Routine 8:51 PM BUSINESS INFO CONSULTANT CULTURE ANAEROBE STAT 05/19/2024 7:43 PM BUSINESS INFO CONSULTANT Pain and swelling of right knee PATHOLOGY SMEAR BODY FLUID STAT 05/19/2024 7:42 PM BUSINESS INFO CONSULTANT Pain and swelling of right knee DIFFERENTIAL MANUAL FLUID STAT 05/19/2024 7:42 PM BUSINESS INFO CONSULTANT Pain and swelling of right knee CELL COUNT W DIFFERENTIAL FLUID STAT 05/19/2024 7:42 PM BUSINESS INFO CONSULTANT Pain and swelling of right knee CULTURE FUNGUS OTHER+FUNGUS SMEAR STAT 05/19/2024 7:42 PM BUSINESS INFO CONSULTANT Pain and swelling of right knee CULTURE FLUID+GRAM STAIN STAT 05/19/2024 7:42 PM BUSINESS INFO CONSULTANT Pain and swelling of right knee ERYTHROCYTE SEDIMENTATION RATE STAT 05/19/2024 4:30 PM BUSINESS INFO CONSULTANT Pain and swelling of right knee C-REACTIVE PROTEIN JOSUÉ 05/19/2024 4: 30 PM BUSINESS INFO CONSULTANT Pain and swelling of right knee CBC W/O DIFFERENTIAL STAT 05/19/2024 4:30 PM BUSINESS INFO CONSULTANT Thrombocytopenia (HCC) TRANSFUSE PLATELET PHERESIS UNIT(S) Routine 05/19/2024 3:45 PM BUSINESS INFO CONSULTANT PREPARE PLATELET PHERESIS UNIT(S) STAT 05/19/2024 3:28 PM BUSINESS INFO CONSULTANT TYPE + SCREEN PANEL STAT 05/19/2024 2 :23 PM BUSINESS INFO CONSULTANT PT-INR [facility] STAT 05/19/2024 2:23 PM BUSINESS INFO CONSULTANT OBTAIN CONSENT FOR TRANSFUSION Routine 05/19/2024 1:58 PM BUSINESS INFO CONSULTANT XR KNEE RIGHT 3VW STAT 05/19/2024 11:59 AM BUSINESS INFO CONSULTANT Pain and swelling of right knee MAGNESIUM BLOOD STAT 05/19/2024 11:46 AM BUSINESS INFO CONSULTANT COMPREHENSIVE METABOLIC PANEL STAT 05/19/2024 11:46 AM BUSINESS INFO CONSULTANT CBC W AUTO DIFFERENTIAL STAT 05/19/2024 11:46 AM BUSINESS INFO CONSULTANT LIPID PROFILE Routine 12/25/2023 8:13 AM CDT ESRD on dialysis (HCC) Alcoholic cirrhosis of liver with ascites (HCC) Stage 5 chronic kidney disease (HCC) Pre-transplant evaluation for liver transplant Pre-transplant evaluation for kidney transplant Other ascites MPGN (membranoprolifer ative glomerulonephriti sahil) Smoker Anemia in end-stage renal disease (HCC) ENDOSCOPY, COLON, DIAGNOSTIC Routine 01/12/2020 3:38 PM CDT from Last 3 Months or Most Recently Relevant to Health Maintenance Results * (ABNORMAL) COMPREHENSIVE METABOLIC PANEL (08/05/2024 2:28 PM BUSINESS INFO CONSULTANT) Only the most recent of17 resultswithin the time period is included. BUN 33(H) 7 - 26 mg/dL 08/05/2024 3:[address] [facility] Creatinine 5.66(H) 0.71 - 1.16 mg/dL 08/05/2024 3:[address] [facility] Sodium 138 136 - 145 mmol/L 08/05/2024 3:[address] [facility] Potassium See Comment 3.5 - 4.5 mmol/L 08/05/2024 3:[address] [facility] Comment:Significant hemolysi s detected in this specimen. Recommend repeat testing if clinically indicated. Chloride 101 98 - 107 mmol/L 08/05/2024 3:[address] [facility] CO2 25 22 - 29 mmol/L 08/05/2024 3:15 PM [facility] Glucose 93 70 - 99 mg/dL 08/05/2024 3:15 PM [facility] Calcium 9.0 8.4 - 10.2 mg/dL 08/05/2024 3:15 PM [facility] Protein Total See Comment 6.0 - 8.3 g/dL 08/05/2024 3:15 PM [facility] Comment:Significant hemolysi s detected in this specimen. Hemolysis leads to artifactual elevations of this analyte. The result has been suppressed. Please reorder test and submit a new specimen if clinically indicated. [place] Laborer of Clinical Chemistry ([phone]) if you suspect in vivo hemolysis. Albumin 3.3(L) 3.4 - 5.0 g/dL 08/05/2024 3:15 PM [facility] Bilirubin Total 1.3(H) 0.2 - 1.2 mg/dL 08/05/2024 3:15 PM [facility] Alkaline Phosphatase 149 40 - 150 U/L 08/05/2024 3:15 PM [facility] ALT 14 5 - 55 U/L 08/05/2024 3:15 PM [facility] AST See Comment 5 - 34 Units/L 08/05/2024 3:15 PM [facility] Comment: Significant hemolysis detected in this specimen. Hemolysis leads to artifactual elevations of this analyte. The result has been suppressed. Please reorder test and submit a new specimen if clinically indicated. [place] Laborer of Clinical Chemistry ([phone]) if you suspect in vivo hemolysis. BUN/Creatinine Ratio 6(L) 7 - 23 08/05/2024 3:15 PM [facility] Osmolality Calculated 293 275 - 295 mOsm/kg 08/05/2024 3:15 PM [facility] Albumin/Globuli n Ratio 0.8(L) 1.1 - 2.3 08/05/2024 3:15 PM [facility] eGFR by CKD-EPI 11(L) >=90 mL/min/1. 73 m2 08/05/2024 3:15 PM [facility] Blood BLOOD SPECIMEN / Unknown Venipuncture / Unknown 08/05/2024 2:28 PM BUSINESS INFO CONSULTANT 08/05/2024 2:43 PM BUSINESS INFO CONSULTANT Amina Mackeyshan Carrera TECHNOLOGY INFUSION SPECIALIST-CHILD CARE ASSOCIATE LAB - CHEMIS TRY ORDERABLES Performing Organization Address City/[facility]/ZIP Co de Phone Number [address] [address], [facility] [phone] * GLUCOSE - POINT OF CARE (08/05/2024 2:27 PM BUSINESS INFO CONSULTANT) Only the most recent of6 resultswithin the time period is included. Glucose WB/POC 99 70 - 99 mg/dL 08/05/2024 9:[address] [facility] Specimen Type Venous 08/05/2024 9:01 PM [facility] Blood BLOOD SPECIMEN / Unknown 08/05/2024 2:27 PM BUSINESS INFO CONSULTANT 08/05/2024 9:01 PM BUSINESS INFO CONSULTANT Provider Unknown LAB - POINT OF CARE ORDERABLES Performing Organization Address [facility] Co de Phone Number [address] [address], [place] [phone] * (ABNORMAL) PT-INR [facility] (07/24/2024 7:38 AM BUSINESS INFO CONSULTANT) Only the most recent of17 resultswithin the time period is included. Pathologist [facility] PT 17.6(H) 12.1 - 14.8 Seconds 07/24/2024 8:36 AM [facility] INR 1.5 See Comment 07/24/2024 8:36 AM [facility] Comment:The suggested therap eutic range for standard coumadin (warfarin) therapy is an INR of 2.0-3.0. For high-risk patients (Mechanical Mitral Valve Prosthesis, etc.), the suggested prophylactic therapeutic range is an INR of 2.5-3.5. Blood BLOOD SPECIMEN / Unknown Lab Venipuncture / Unknown 07/24/2024 7:38 AM BUSINESS INFO CONSULTANT 07/24/2024 8:11 AM BUSINESS INFO CONSULTANT Melecio Graves MD LAB - COAGULATION OR DERABLES Performing Organization Address City/[facility]/ZIP Co de Phone Number [address] [place] [address], [facility] [phone] * (ABNORMAL) DIFFERENTIAL MANUAL (07/24/2024 7:38 AM BUSINESS INFO CONSULTANT) Only the most recent of3 resultswithin the time period is included. Neutrophil % 73 41 - 74 % 07/24/2024 10:44 AM [facility] Lymphocyte % 15(L) 17 - 47 % 07/24/2024 10:44 AM [facility] Monocyte % 7 3 - 11 % 07/24/2024 10:44 AM [facility] Eosinophil % 4 0 - 7 % 07/24/2024 10:44 AM [facility] Basophil % 1 0 - 2 % 07/24/2024 10:44 AM [facility] Neutrophil Absolute 2.34 1.60 - 7.50 x10E9/L 07/24/2024 10:44 AM [facility] Lymphocyte Absolute 0.48(L) 1.00 - 4.40 x10E9/L 07/24/2024 10:44 AM [facility] Monocyte Absolute 0.22 0.15 - 1.00 x10E9/L 07/24/2024 10:44 AM [facility] Eosinophil Absolute 0.13 0.00 - 0.60 x10E9/L 07/24/2024 10:44 AM [facility] Basophil Absolute 0.03 0.00 - 0.13 x10E9/L 07/24/2024 10:44 AM [facility] RBC Morphology REVIEWED 07/24/2024 10:44 AM [facility] Blood BLOOD SPECIMEN / Unknown Lab Venipuncture / Unknown 07/24/2024 7:38 AM BUSINESS INFO CONSULTANT 07/24/2024 8:13 AM BUSINESS INFO CONSULTANT Melecio Graves MD LAB - HEMATOLOGY ORD ERABLES [facility] [address] [place] [address], [facility] [phone] * (ABNORMAL) CBC W/ DIFFERENTIAL (07/24/2024 7:38 AM BUSINESS INFO CONSULTANT) Only the most recent of7 resultswithin the time period is included. WBC 3.2(L) 4.0 - 10.7 x10E9/L 07/24/2024 10:44 AM [facility] RBC Count 2.83(L) 4.30 - 5.80 x10E12/L 07/24/2024 10:44 AM [facility] Hemoglobin 9.3(L) 13.3 - 17.5 g/dL 07/24/2024 10:44 AM [facility] Hematocrit 27.9(L) 38.7 - 51.1 % 07/24/2024 10:44 AM [facility] MCV 98.6(H) 80.0 - 98.0 fL 07/24/2024 10:44 AM [facility] MCH 32.9 26.7 - 33.6 pg 07/24/2024 10:44 AM [facility] MCHC 33.3 31.7 - 36.3 g/dL 07/24/2024 10:44 AM [facility] RDW-CV 16.8(H) 11.3 - 14.8 % 07/24/2024 10:44 AM [facility] Platelet Count 48(L) 150 - 420 x10E9/L 07/24/2024 10:44 AM [facility] MPV 10.3 7.8 - 11.4 fL 07/24/2024 10:44 AM [facility] Blood BLOOD SPECIMEN / Unknown Lab Venipuncture / Unknown 07/24/2024 7:38 AM [facility] 07/24/2024 8:13 AM [facility] - 07/24/2024 10:44 AM [facility] A previously reported component NEUT % is no longer reported.A previously reported component LYMPH % is no longer reported.A previously reported component MONO % is no longer reported.A previously reported component EOS % is no longer reported.A previously reported component BASO % is no longer reported.A previously reported component IG % is no longer reported.A previously reported component NEUT ABS is no longer reported.A previously reported component LYMPH ABS is no longer reported.A previously reported component MONO ABS is no longer reported.A previously reported component EOS ABS is no longer reported.A previously reported component BASO ABS is no longer reported. Melecio Graves MD LAB - HEMATOLOGY ORD ERABLES Performing Organization Address City/[facility]/ZIP Co de Phone Number [facility] [address] [place] [address], [facility] [phone] * APHERESIS/TRANSFUSION ORDER (07/14/2024 1:38 PM BUSINESS INFO CONSULTANT) Narrative 07/14/2024 1:38 PM BUSINESS INFO CONSULTANT Ordered by an unspecified provider. Scanned Document NURSING - VITAL SIGN S AND ASSESSMENT * PREPARE (CROSSMATCH) RBC UNIT(S), 1 Units (07/12/2024 1:17 AM BUSINESS INFO CONSULTANT) Only the most recent of2 resultswithin the time period is included. Unit Description AS1 LR PRBC [facility] BLOOD BANK LAB Unit ABO O [facility] BLOOD BANK LAB Unit Rh NEG [facility] BLOOD BANK LAB Product Number R02 [facility] B LOOD BANK LAB Unit Donor # [id number] [facility] BLOOD BANK LAB Unit Status released [facility] BLOO D BANK LAB Product Code [id number] [facility] BLO OD BANK LAB Blood Type Barcode 9500 [facility] BLOOD BANK LAB Expiration Date [id number] [facility] BLOOD BANK LAB Blood Bank BLOOD SPECIMEN / Unknown 07/11/2024 6:01 AM BUSINESS INFO CONSULTANT Pawan Lynn DO LAB - BLOOD BANK ORDERABLES Performing Organization Address City/[facility]/ZIP Co de Phone Number [facility] BLOOD BANK LAB [address] [place] [address], [facility] [phone] * TRANSFUSE PLATELET PHERESIS UNIT(S) (07/11/2024 9:19 AM BUSINESS INFO CONSULTANT) Pawan Lynn DO NURSING - BLOOD P BETTIE TRANSFUSION * PATHOLOGY TISSUE (07/11/2024 8:43 AM BUSINESS INFO CONSULTANT) Case Report Surgical Pathology Report Case: [id number] Authorizing Provider: Theron Medellin MD Collected: 07/11/2024 08:43 AM Ordering Location: [facility] Received: 07/11/2024 10:55 AM Pathologist: Bonnie Rene MD Specimen: Hernia Sac, RIGHT INGUINAL HERNIA SAC 07/14/2024 1:00 PM [facility] PATHOLOGY LAB Final Diagnosis Soft tissue, right inguinal hernia sac, excision (A): - Fibrosis, reactive changes, and extensive hemosiderin deposition 07/14/2024 1:00 PM [facility] Microscopic Description and Comment Microscopic examination substantiates the final diagnosis. 07/14/2024 1:00 PM [facility] Clinical History The patient is a 58-year-old man with right inguinal hernia. Operative procedure: Repair 07/14/2024 1:00 PM [facility] Gross Description The requisition and specimen(s) are identified with the patient's name, Jj Cuello. Received in formalin, specimen A , is a 4.0 x 3.0 x 1.5 cm saccular portion of medrano-pink to dusky purple fibromembranous tissue. The outer surfaces show focal adhesion and petechial hemorrhage. The inner linings are dusky purple and smooth, and range from 0.1-0.5 cm in thickness. The cut surfaces show interspersed gelatinous central layer. There are no additional gross lesions. Student Support Advisor sections are submitted in cassette A1. IKD 07/14/2024 1:00 PM [facility] LAB Pathologist Location at [facility] 07/14/2024 1:00 PM [facility] Disclaimer The performance characteristics of all immunohistochemical and indirect immunofluorescence stains (if any) cited in this report were determined by the Histopathology Laboratory of [facility]. Some of these tests were developed by our own laboratory and have not been cleared or approved by the US Food and Drug Administration. The FDA does not require this test to go through premarket FDA review. These tests are used for clinical purposes. They should not be regarded as investigational or for research. This laboratory is certified under the Clinical Laboratory Improvement Amendments (CLIA) as qualified to perform high complexity clinical laboratory testing. This case has been personally reviewed and interpreted by the attending (teaching) pathologist. 07/14/2024 1:00 PM [facility] Embedded Images 07/14/2024 1:00 PM [facility] Biopsy, Excision HERNIA SAC / Unknown 07/11/2024 8:43 AM BUSINESS INFO CONSULTANT 07/11/2024 10:55 AM BUSINESS INFO CONSULTANT Comment:Pre-op diagnosis: symptomatic right inguinal hernia Theron Medellin MD LAB - PATHOLOGY/CYTO LOGY ORDERABLES Performing Organization Address City/State/ZIP Co mi Phone Number [facility] PATHOLOGY LAB [address] [phone] * ETT LINE PERFORMABLE (07/11/2024 7:55 AM BUSINESS INFO CONSULTANT) Narrative Kayla Joyce Anes Asst - 07/11/2024 7:55 AM BUSINESS INFO CONSULTANT Kayla Joyce Anes Asst 07/11/2024 7:55 AM Endotracheal Tube Placement: Patient Location: OR. Intubation Event Date/Time: 07/11/2024 7:40 AM Procedure: intubation (53324) Procedure Section: Sedation: under general anesthesia. Indications for Airway Management: anesthesia Procedure pretreatments used? No Induction: standard IV Patient Position: sniffing Mask Ventilation: easy. Blade Type: Evans Laryngoscopy View: grade 1 (full cords) Intubation Adjuncts: stylet Tube: endotracheal tube Placement: oral Tube type: cuff - inflated Tube Size (MM): 8 Depth of Insertion (CM): 23 Measured From: lips Cuff Inflated With: air Number of Attempts: 1. Placement Verified By: direct visualization, bilateral breath sounds, chest auscultation and CO2 monitor Dentition unchanged? Yes Difficult Airway? No. Procedure Start Time: 07/11/2024 7:40 AM. Staff Section Anesthesia Provider: Kayla Joyce Anes Asst, Performed the procedure Pawan Lynn DO GENERAL ANESTHESI A ORDERABLES * PREPARE PLATELET PHERESIS UNIT(S), 1 Units (07/11/2024 6:54 AM BUSINESS INFO CONSULTANT) Only the most recent of3 resultswithin the time period is included. Unit Description LR PLT Phere B7 [facility] BLOOD BANK LAB Unit ABO O [facility] BLOOD BANK LAB Unit Rh POS [facility] BLOOD BANK LAB Product Number P27 [facility] B LOOD BANK LAB Unit Donor # [id number] [facility] BLOOD BANK LAB Unit Status transfused [facility] BLO OD BANK LAB Product Code [id number] [facility] BLO OD BANK LAB Blood Type Barcode 5100 [facility] BLOOD BANK LAB Expiration Date [id number] S BLOOD BANK LAB Blood Bank BLOOD SPECIMEN / Unknown 07/11/2024 6:01 AM BUSINESS INFO CONSULTANT Pawan Lynn DO LAB - BLOOD BANK ORDERABLES Performing Organization Address City/[facility]/ZIP Co de Phone Number [facility] BLOOD BANK LAB [address] [place] [address], [place] [phone] * TYPE + SCREEN PANEL (07/11/2024 5:57 AM BUSINESS INFO CONSULTANT) Only the most recent of4 resultswithin the time period is included. Antibody Screen NEG 6:49 AM BUSINESS INFO CONSULTANT [facility] BLOOD BANK LAB ABO Rh O NEG 07/11/2024 6:49 AM BUSINESS INFO CONSULTANT [facility] BLOOD BANK LAB Blood Bank BLOOD SPECIMEN / Unknown Line Draw / Unknown 07/11/2024 5:57 AM BUSINESS INFO CONSULTANT 07/11/2024 6:01 AM BUSINESS INFO CONSULTANT Zoe Arevalo APRN-CHILD CARE ASSOCIATE LAB - BLOOD B ANK ORDERABLES Performing Organization Address [facility] Co de Phone Number [facility] BLOOD BANK LAB [address] [place] [address], [place] [phone] * POTASSIUM WHOLE BLD (07/11/2024 5:57 AM BUSINESS INFO CONSULTANT) Potassium Whole Blood 4.2 3.5 - 5.5 mmol/L 07/11/2024 6:14 AM BUSINESS INFO CONSULTANT [facility] Blood WHOLE BLOOD SPECIMEN / Unknown Line Draw / Unknown 07/11/2024 5:57 AM BUSINESS INFO CONSULTANT 07/11/2024 6:04 AM BUSINESS INFO CONSULTANT Zoe Arevalo TECHNOLOGY INFUSION SPECIALIST-CHILD CARE ASSOCIATE LAB - DISTRICT ATTORNEY RY ORDERABLES Performing Organization Address City/[facility]/ZIP Co de Phone Number [facility] [address] [place] [address], [place] [phone] * (ABNORMAL) CBC W/O DIFFERENTIAL (06/14/2024 12:37 AM BUSINESS INFO CONSULTANT) Only the most recent of14 resultswithin the time period is included. Pathologist [facility] WBC 1.5(L) 4.0 - 10.7 x10E9/L 06/14/2024 1:57 AM [facility] RBC Count 2.29(L) 4.30 - 5.80 x10E12/L 06/14/2024 1:57 AM [facility] Hemoglobin 7.3(L) 13.3 - 17.5 g/dL 06/14/2024 1:57 AM [facility] Hematocrit 21.4(L) 38.7 - 51.1 % 06/14/2024 1:57 AM [facility] MCV 93.4 80.0 - 98.0 fL 06/14/2024 1:57 AM [facility] MCH 31.9 26.7 - 33.6 pg 06/14/2024 1:57 AM [facility] MCHC 34.1 31.7 - 36.3 g/dL 06/14/2024 1:57 AM [facility] RDW-CV 17.8(H) 11.3 - 14.8 % 06/14/2024 1:57 AM [facility] Platelet Count 33(L) 150 - 420 x10E9/L 06/14/2024 1:57 AM [facility] MPV 10.7 7.8 - 11.4 fL 06/14/2024 1:57 AM [facility] Blood BLOOD SPECIMEN / Unknown Lab Venipuncture / Unknown 06/14/2024 12:37 AM BUSINESS INFO CONSULTANT 06/14/2024 1:18 AM BUSINESS INFO CONSULTANT Melecio Graves MD LAB - HEMATOLOGY ORD ERABLES [address] [address], [facility] [phone] * (ABNORMAL) BASIC METABOLIC PANEL (CALCIUM TOTAL) (06/14/2024 12:37 AM BUSINESS INFO CONSULTANT) Only the most recent of3 resultswithin the time period is included. Pathologist [facility] BUN 21 7 - 26 mg/dL 06/14/2024 2:18 AM [facility] Creatinine 5.45(H) 0.71 - 1.16 mg/dL 06/14/2024 2:18 AM [facility] Sodium 139 136 - 145 mmol/L 06/14/2024 2:18 AM [facility] Potassium 4.3 3.5 - 4.5 mmol/L 06/14/2024 2:18 AM [facility] Chloride 99 98 - 107 mmol/L 06/14/2024 2:18 AM [facility] CO2 30(H) 22 - 29 mmol/L 06/14/2024 2:18 AM [facility] Glucose 84 70 - 99 mg/dL 06/14/2024 2:18 AM [facility] Calcium 8.1(L) 8.4 - 10.2 mg/dL 06/14/2024 2:18 AM [facility] Anion Gap 10 6 - 16 06/14/2024 2:18 AM [facility] BUN/Creatinine Ratio 4(L) 7 - 23 06/14/2024 2:18 AM [facility] Osmolality Calculated 290 275 - 295 mOsm/kg 06/14/2024 2:18 AM [facility] eGFR by CKD-EPI 11(L) >=90 mL/min/1.7 3 m2 06/14/2024 2:18 AM [facility] Blood BLOOD SPECIMEN / Unknown Lab Venipuncture / Unknown 06/14/2024 12:37 AM BUSINESS INFO CONSULTANT 06/14/2024 1:19 AM [facility] Melecio Graves MD LAB - CHEMISTRY FREDO CHAVES [facility] Organization Address City/State/ZIP Co de Phone Number [facility] [address] [place] [phone], [facility] [phone] * MAGNESIUM BLOOD (06/14/2024 12:37 AM [facility]) Only the most recent of14 resultswithin the time period is included. Magnesium 1.8 1.6 - 2.6 mg/dL 06/14/2024 1:49 AM [facility] Blood BLOOD SPECIMEN / Unknown Lab Venipuncture / Unknown 06/14/2024 12:37 AM BUSINESS INFO CONSULTANT 06/14/2024 1:19 AM BUSINESS INFO CONSULTANT Melecio Graves MD LAB - CHEMISTRY FREDO CHAVES [facility] Organization Address City/State/ZIP Co de Phone Number [facility] [address] [place] [address], [facility] [phone] * TRANSFUSE RED BLOOD CELL LEUKOREDUCED UNIT(S) (06/13/2024 5:43 PM BUSINESS INFO CONSULTANT) Melecio Graves MD NURSING - BLOOD PROD TRANSFUSION * (ABNORMAL) HEPATIC FUNCTION PANEL (06/13/2024 8:48 AM BUSINESS INFO CONSULTANT) Protein Total 5.7(L) 6.0 - 8.3 g/dL 9:48 AM [facility] Albumin 2.3(L) 3.4 - 5.0 g/dL 06/13/2024 9:48 AM [facility] Bilirubin Total 1.5(H) 0.2 - 1.2 mg/dL 06/01 9:48 AM [facility] Bilirubin Conjugated 0.9(H) 0.1 - 0.5 mg/dL 06/13/2024 9:48 AM [facility] Bilirubin Unconjugated 0.6 Unconjugated Bilirubin is a calculated value: Reference ranges have not been established. mg/dL 06/13/2024 9:48 AM [facility] Alkaline Phosphatase 77 40 - 150 U/L 06/13/2024 9:48 AM [facility] ALT 7 5 - 55 U/L 06/13/2024 9:48 AM [facility] AST 27 5 - 34 U/L 06/13/2024 9:48 AM [facility] Albumin/Globulin Ratio 0.7(L) 1.1 - 2.3 06/13/2024 9:48 AM [facility] Blood BLOOD SPECIMEN / Unknown Lab Venipuncture / Unknown 06/13/2024 8:48 AM BUSINESS INFO CONSULTANT 06/13/2024 9:18 AM BUSINESS INFO CONSULTANT Melecio Graves MD LAB - CHEMISTRY FREDO CHAVES Performing Organization Address City/[facility]/ZIP Co de Phone Number [address] [address], [facility] [phone] * FOLATE (06/13/2024 8:48 AM BUSINESS INFO CONSULTANT) Folate 8.5 7.0 - 31.4 ng/mL 06/13/2024 10:20 AM BUSINESS INFO CONSULTANT [facility] Blood BLOOD SPECIMEN / Unknown Lab Venipuncture / Unknown 06/13/2024 8:48 AM BUSINESS INFO CONSULTANT 06/13/2024 9:18 AM BUSINESS INFO CONSULTANT Melecio Graves MD LAB - CHEMISTRY FREDO CHAVES Performing Organization Address City/[facility]/ZIP Co de Phone Number [address] [address], [facility] [phone] * (ABNORMAL) VITAMIN B12 (06/13/2024 8:48 AM BUSINESS INFO CONSULTANT) Vitamin B12 1,274(H) 213 - 816 pg/mL 06/13/2024 10:20 AM BUSINESS INFO CONSULTANT [facility] Blood BLOOD SPECIMEN / Unknown Lab Venipuncture / Unknown 06/13/2024 8:48 AM BUSINESS INFO CONSULTANT 06/13/2024 9:18 AM BUSINESS INFO CONSULTANT Melecio Graves MD LAB - CHEMISTRY FREDO CHAVES Performing Organization Address City/[facility]/ZIP Co de Phone Number [address] [address], [facility] [phone] * (ABNORMAL) PTH INTACT W/O CALCIUM (06/12/2024 1:23 AM BUSINESS INFO CONSULTANT) Only the most recent of2 resultswithin the time period is included. PTH Intact 407.3(H) 8.0 - 77.0 pg/mL 06/12/2024 2:23 AM BUSINESS INFO CONSULTANT [facility] Blood BLOOD SPECIMEN / Unknown Lab Venipuncture / Unknown 06/12/2024 1:23 AM BUSINESS INFO CONSULTANT 06/12/2024 1:42 AM BUSINESS INFO CONSULTANT Melecio Graves MD LAB - CHEMISTRY FREDO CHAVES Performing Organization Address City/[facility]/ZIP Co de Phone Number [address] [address], [place] [phone] * (ABNORMAL) IRON + TRANSFERRIN PANEL (06/12/2024 1:23 AM BUSINESS INFO CONSULTANT) Only the most recent of2 resultswithin the time period is included. Iron 48(L) 50 - 175 ug/dL 06/12/2024 2:20 AM BUSINESS INFO CONSULTANT [facility] Transferrin 79(L) 174 - 382 mg/dL 06/12/2024 2:20 AM BUSINESS INFO CONSULTANT [facility] Transferrin Saturation % 49 16 - 50 % 06/12/2024 2:20 AM BUSINESS INFO CONSULTANT [facility] TIBC Calculated 99(L) 240 - 450 ug/dL 06/12/2024 2:20 AM BUSINESS INFO CONSULTANT [facility] Blood BLOOD SPECIMEN / Unknown Lab Venipuncture / Unknown 06/12/2024 1:23 AM BUSINESS INFO CONSULTANT 06/12/2024 1:42 AM BUSINESS INFO CONSULTANT Melecio Graves MD LAB - CHEMISTRY FREDO CHAVES Performing Organization Address [facility]/ZIP Co de Phone Number [address] [address], [place] [phone] * (ABNORMAL) FERRITIN (06/12/2024 1:23 AM BUSINESS INFO CONSULTANT) Only the most recent of2 resultswithin the time period is included. Ferritin 938(H) 22 - 275 ng/mL 06/12/2024 2:37 AM BUSINESS INFO CONSULTANT [facility] Blood BLOOD SPECIMEN / Unknown Lab Venipuncture / Unknown 06/12/2024 1:23 AM BUSINESS INFO CONSULTANT 06/12/2024 1:42 AM BUSINESS INFO CONSULTANT Melecio Graves MD LAB - CHEMISTRY FREDO CHAVES Performing Organization Address City/[facility]/ZIP Co de Phone Number [address] [phone] [phone] * EKG 12-LEAD (06/11/2024 7:45 PM BUSINESS INFO CONSULTANT) Ventricular Rate 59 BPM [facility] MUSE Atrial Rate 59 BPM [facility] P-R Interval 242 ms [facility] MUSE QRS Duration ms 102 ms [facility] MUSE Q-T Interval ms 492 ms [facility] MUSE QTC Calculation (Bezet) 487 ms [facility] MUSE Calculated P [place] 72 degrees [facility] MUSE Calculated R [place] 62 degrees [facility] MUSE Calculated T [place] 74 degrees SL MUSE Interpretation EKG SINUS BRADYCARDIA WITH 1ST DEGREE A-V BLOCK T WAVE ABNORMALITY, CONSIDER ANTERIOR ISCHEMIA ABNORMAL ECG Confirmed by LEILANI ROJAS MD ([id number]) on 06/13/2024 1:39:21 PM [facility] MUSE 06/11/2024 7:45 PM BUSINESS INFO CONSULTANT 06/13/2024 1:39 PM BUSINESS INFO CONSULTANT Melecio Graves MD ECG ORDERABLES [facility] MUSE * CT Knee Right Wo Contrast (06/11/2024 5:55 PM BUSINESS INFO CONSULTANT) Anatomical Region Laterality Modality Lower Extremity Computed Tomogra phy 06/11/2024 6:16 PM BUSINESS INFO CONSULTANT Impressions 06/12/2024 12:48 AM BUSINESS INFO CONSULTANT IMPRESSION: 1.There is an osteochondral defect of the medial femoral condyle measuring 9 mm with no displaced fragment. 2.Tricompartmental degenerative changes most severe within the medial compartment with severe joint space narrowing. There is chondrocalcinosis within the lateral compartment which may suggest a component of CPPD arthropathy. 3.Moderate suprapatellar joint effusion with mild to moderate edema. This raises concern for inflammatory arthritis. > Dictated by Sandro Bro DO (vice president investor relations). I, Chad Renner MD have personally reviewed and interpreted this examination/study. > Interpreting Provider: Chad Renner MD on 06/12/2024 12:48 AM Narrative 06/12/2024 12:48 AM BUSINESS INFO CONSULTANT PROCEDURE: CT KNEE RIGHT WO CONTRAST DATE/TIME OF EXAM: 06/11/2024 5:55 PM CLINICAL INFORMATION: None relevant/not provided if blank. Indication: M25.561: Acute pain of right knee COMPARISON: Right knee x-ray from 06/11/2024 TECHNIQUE: CT of the right knee was performed utilizing standard protocol. CT dose reduction technique was used, including Automated Exposure Control. FINDINGS: There is an osteochondral defect medial femoral condyle (series 6 image 52) measuring 9 mm with no displaced fragment seen. No displaced fracture or dislocation is identified. Vascular calcifications are seen. Chondrocalcinosis is seen within the lateral compartment and may reflect the presence of CPPD arthropathy. Otherwise there are tricompartmental degenerative changes most severe in the medial compartment with severe joint space narrowing. Moderate suprapatellar joint effusion. Mild to moderate edema surrounding the knee is seen. Procedure Note Chad Renner MD - 06/12/2024 PROCEDURE: CT KNEE RIGHT WO CONTRAST DATE/TIME OF EXAM: 06/11/2024 5:55 PM CLINICAL INFORMATION: None relevant/not provided if blank. Indication: M25.561: Acute pain of right knee COMPARISON: Right knee x-ray from 06/11/2024 TECHNIQUE: CT of the right knee was performed utilizing standard protocol. CT dose reduction technique was used, including Automated ExposureControl. FINDINGS: There is an osteochondral defect medial femoral condyle (series 6 image52) measuring 9 mm with no displaced fragment seen. No displaced fracture or dislocation is identified. Vascular calcifications are seen. Chondrocalcinosis is seen within the lateral compartment and may reflect the presence of CPPD arthropathy. Otherwise there are tricompartmental degenerative changes most severe in the medial compartment with severe joint space narrowing. Moderate suprapatellar joint effusion. Mild to moderate edemasurrounding the knee is seen. IMPRESSION: 1.There is an osteochondral defect of the medial femoral condylemeasuring 9 mm with no displaced fragment. 2.Tricompartmental degenerative changes most severe within the medial compartment with severe joint space narrowing. There ischondrocalcinosis within the lateral compartment which may suggest a component of CPPD arthropathy. 3.Moderate suprapatellar joint effusion with mild to moderate edema.This raises concern for inflammatory arthritis. > Dictated by Sandro Bro DO (vice president investor relations). I, Chad Renner MD have personally reviewed and interpreted this examination/study. > Interpreting Provider: Chad Renner MD on 06/12/2024 12:48 AM iMnerva Ventura MD CT ORDERABLES * XR Knee Right 3Vw (06/11/2024 3:41 PM BUSINESS INFO CONSULTANT) Only the most recent of2 resultswithin the time period is included. Anatomical Region Laterality Modality Lower Extremity Digital Radiogra phy 06/11/2024 3:37 PM BUSINESS INFO CONSULTANT Impressions 06/11/2024 3:56 PM BUSINESS INFO CONSULTANT IMPRESSION: Increase in size of moderate suprapatellar joint effusion. No acute fracture or dislocation. No radiographic evidence of osteomyelitis. Soft tissue swelling. Report dictated by Zahida Catalan MD, (vice president investor relations). I, Elzbieta Woodard MD have personally reviewed and interpreted this examination/study. > Interpreting Provider: Elzbieta Woodard MD on 06/11/2024 3:56 PM Narrative 06/11/2024 3:56 PM BUSINESS INFO CONSULTANT PROCEDURE: XR KNEE RIGHT 3VW DATE/TIME OF EXAM: 06/11/2024 3:23 PM CLINICAL INFORMATION: None relevant/not provided if blank. Indication: M25.561: Acute pain of right knee Additional History: ADDITIONAL CLINICAL INFORMATION: Ordering Provider Reason For Exam: r/o osteo COMPARISON: Right knee x-ray 05/19/2024. FINDINGS: The osseous structures are intact and well aligned without acute fracture or dislocation. Minimal degenerative changes. No cortical erosion or focal osteopenia is seen to suggest osteomyelitis. A moderate-volume suprapatellar joint effusion is seen. Bone density and texture are normal. Soft tissue swelling is seen medially and anteriorly. Procedure Note Elzbieta Woodard MD - 06/11/2024 PROCEDURE: XR KNEE RIGHT 3VW DATE/TIME OF EXAM: 06/11/2024 3:23 PM CLINICAL INFORMATION: None relevant/not provided if blank. Indication: M25.561: Acute pain of right knee Additional History: ADDITIONAL CLINICAL INFORMATION: Ordering Provider Reason For Exam: r/o osteo COMPARISON: Right knee x-ray 05/19/2024. FINDINGS: The osseous structures are intact and well aligned without acutefracture or dislocation. Minimal degenerative changes. No cortical erosion orfocal osteopenia is seen to suggest osteomyelitis. A moderate-volume suprapatellar joint effusion is seen. Bone density and texture arenormal. Soft tissue swelling is seen medially and anteriorly. IMPRESSION: Increase in size of moderate suprapatellar joint effusion. No acute fracture or dislocation. No radiographic evidence of osteomyelitis. Soft tissue swelling. Report dictated by Zahida Catalan MD, (vice president investor relations). I, Elzbieta Woodard MD have personally reviewed and interpreted this examination/study. > Interpreting Provider: Elzbieta Woodard MD on 06/11/2024 3:56 PM Hany Whyte MD DIAGNOSTIC IMAGING O RDERABLES * (ABNORMAL) C-REACTIVE PROTEIN (06/11/2024 8:18 AM BUSINESS INFO CONSULTANT) Only the most recent of2 resultswithin the time period is included. C-Reactive Protein 4.6(H) <=0.5 mg/dL 06/11/2024 8:57 AM BUSINESS INFO CONSULTANT [facility] Blood BLOOD SPECIMEN / Unknown Venipuncture / Unknown 06/11/2024 8:18 AM BUSINESS INFO CONSULTANT 06/11/2024 8:25 AM BUSINESS INFO CONSULTANT Chivo Agudelo MD LAB - CHEMISTRY ORDE ANASTACIO Performing Organization Address City/[facility]/ZIP Co de Phone Number [address] [address], [facility] [phone] * (ABNORMAL) ERYTHROCYTE SEDIMENTATION RATE (06/11/2024 8:18 AM BUSINESS INFO CONSULTANT) Only the most recent of2 resultswithin the time period is included. Erythrocyte Sedimentation Rate Westergren 31(H) 0 - 20 MM/HR 06/11/2024 10:12 AM BUSINESS INFO CONSULTANT [facility] Blood BLOOD SPECIMEN / Unknown Venipuncture / Unknown 06/11/2024 8:18 AM BUSINESS INFO CONSULTANT 06/11/2024 8:25 AM BUSINESS INFO CONSULTANT Chivo Agudelo MD LAB - HEMATOLOGY ORD ERABLES Performing Organization Address City/[facility]/ZIP Co de Phone Number [address] [address], [facility] [phone] * PHOSPHORUS BLOOD (06/11/2024 8:18 AM BUSINESS INFO CONSULTANT) Only the most recent of10 resultswithin the time period is included. Phosphorus 3.7 2.8 - 5.1 mg/dL 06/11/2024 8:57 AM BUSINESS INFO CONSULTANT [facility] Blood BLOOD SPECIMEN / Unknown Venipuncture / Unknown 06/11/2024 8:18 AM BUSINESS INFO CONSULTANT 06/11/2024 8:25 AM BUSINESS INFO CONSULTANT Chivo Agudelo MD LAB - CHEMISTRY ORDE ANASTACIO [facility] [address] [place] [address], [facility] [phone] * (ABNORMAL) BILIRUBIN DIRECT (05/28/2024 6:51 AM BUSINESS INFO CONSULTANT) Only the most recent of9 resultswithin the time period is included. Bilirubin Conjugated 0.7(H) 0.1 - 0.5 mg/dL 05/28/2024 7:44 AM BUSINESS INFO CONSULTANT [facility] Blood BLOOD SPECIMEN / Unknown Lab Venipuncture / Unknown 05/28/2024 6:51 AM BUSINESS INFO CONSULTANT 05/28/2024 7:09 AM BUSINESS INFO CONSULTANT Sanjuana Salazar MD LAB - CHEMISTRY ORDGerhard CHAVES [facility] [address] [place] [address], [facility] [phone] * XR Panorex (05/24/2024 2:12 PM BUSINESS INFO CONSULTANT) Anatomical Region Laterality Modality Head Radiographic Cindy ging 05/25/2024 8:00 AM BUSINESS INFO CONSULTANT Impressions 05/25/2024 11:44 PM BUSINESS INFO CONSULTANT IMPRESSION: Motion artifact degrades image quality, within exam limitations. Consider performing this study again. Nonspecific radiolucency of the right paramedian mandible. Otherwise no evidence of periapical abscess. Report dictated by Judy Muller Dr, MD (vice president investor relations). I, Sonja Sanders MD have personally reviewed and interpreted this examination/study. 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 FINDINGS: Motion artifact degrades image quality, within exam limitations: Multiple dental restorations are identified, and numerous teeth are absent. No acute mandibular fracture is identified. Both temporomandibular joints are intact. No periapical abscess is present. 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 FINDINGS: Motion artifact degrades image quality, within exam limitations: Multiple dental restorations are identified, and numerous teeth areabsent. No acute mandibular fracture is identified. Both temporomandibularjoints are intact. No periapical abscess is present. IMPRESSION: Motion artifact degrades image quality, within exam limitations. Consider performing this study again. Nonspecific radiolucency of the right paramedian mandible. Otherwise no evidence of periapical abscess. Report dictated by Judy Muller Dr, MD (vice president investor relations). I, Sonja Sanders MD have personally reviewed and interpreted this examination/study. > Interpreting Provider: Sonja Sanders MD on 05/25/2024 11:44 PM Uli Murphy MD DIAGNOSTIC IMAGING O RDERABLES * (ABNORMAL) VITAMIN D 25-HYDROXY (05/23/2024 3:23 AM BUSINESS INFO CONSULTANT) Vitamin D, 25 Hydroxy 16.4(L) 30.0 - 80.0 ng/mL 05/23/2024 8:10 AM BUSINESS INFO CONSULTANT [facility] Comment: The recommendations for 25-Hydroxy Vitamin D clinical decision points are as follows: Deficient: <20.0 ng/mL Insufficient: 20.0 - 29.9 ng/mL Sufficient: 30.0 - 100.0 ng/mL Potential Toxicity: >100 ng/mL Reference: The Endocrine Society Clinical Practice Guidelines. 2011 If the 25-Hydroxy Vitamin D results are inconsitent with clinical evidence, it is recommended that follow-up testing using a method such as LC/MS/MS be performed to confirm the result. Blood BLOOD SPECIMEN / Unknown Lab Venipuncture / Unknown 05/23/2024 3:23 AM BUSINESS INFO CONSULTANT 05/23/2024 4:04 AM BUSINESS INFO CONSULTANT Uli Murphy MD LAB - CHEMISTRY FREDO CHAVES Performing Organization Address City/[facility]/ZIP Co de Phone Number [address] [address], [facility] [phone] * VANCOMYCIN LEVEL RANDOM (05/23/2024 3:23 AM BUSINESS INFO CONSULTANT) Only the most recent of3 resultswithin the time period is included. Pathologist [facility] Vancomycin Random 19.8 Therapeutic Ranges not established for random specimens ug/mL 05/23/2024 4:24 AM BUSINESS INFO CONSULTANT [facility] Blood BLOOD SPECIMEN / Unknown Lab Venipuncture / Unknown 05/23/2024 3:23 AM BUSINESS INFO CONSULTANT 05/23/2024 3:59 AM BUSINESS INFO CONSULTANT Narrative [facility] - 05/23/2024 4:24 AM BUSINESS INFO CONSULTANT See institution protocol. Uli Murphy MD LAB - CHEMISTRY FREDO CHAVES [address] [address], [place] [phone] * CHLAMYDIA + GC AMPLIFIED PROBE (05/22/2024 1:26 PM BUSINESS INFO CONSULTANT) Chlamydia Amplified Probe Negative Negative 05/22/2024 8:38 PM BUSINESS INFO CONSULTANT [facility] GC Amplified Probe Negative Negative 05/22/2024 8:38 PM BUSINESS INFO CONSULTANT [facility] Microbiology ENTIRE PHARYNX / Unknown Collection / Unknown 05/22/2024 1:26 PM BUSINESS INFO CONSULTANT 05/22/2024 1:31 PM BUSINESS INFO CONSULTANT Narrative [facility] - 05/22/2024 8:38 PM BUSINESS INFO CONSULTANT Results based on detection/no detection of ribosomal RNA by amplified method. Uli Murphy MD LAB - MICROBIOLOGY O MEREDITH Performing Organization Address City/[facility]/ZIP Co de Phone Number [facility] [address] [place] [address], [facility] [phone] * CULTURE BLOOD (05/22/2024 9:38 AM BUSINESS INFO CONSULTANT) Only the most recent of2 resultswithin the time period is included. Pathologist [facility] Culture No growth day 5 LEANNE 05/27/2024 2:31 PM BUSINESS INFO CONSULTANT [facility] Blood PERIPHERAL BLOOD / Unknown Lab Venipuncture / Unknown 05/22/2024 9:38 AM BUSINESS INFO CONSULTANT 05/22/2024 10:03 AM BUSINESS INFO CONSULTANT Uli Murphy MD LAB - MICROBIOLOGY O MEREDITH Performing Organization Address [facility] Co de Phone Number [facility] [address] [place] [address], [facility] [phone] * HEPATITIS C AB SCREEN RFLX NAAT QUANT (05/21/2024 2:29 AM BUSINESS INFO CONSULTANT) Pathologist [facility] Hepatitis C Antibody Non-react jaden Non-reac tive 05/22/2024 8:44 AM BUSINESS INFO CONSULTANT [facility] Comment:Hepatitis C Antibody screen indicates no serologic evidence of past or current infection with Hepatitis C Virus. Patients with unexplained liver disease who are immunocompromised or suspected of having acute Hepatitis C infection may benefit from Nucleic Acid Test (VICTORIANO) for Hepatitis C Viral RNA to confirm Hepatitis C status. Blood BLOOD SPECIMEN / Unknown Lab Venipuncture / Unknown 05/21/2024 2:29 AM BUSINESS INFO CONSULTANT 05/21/2024 3:08 AM BUSINESS INFO CONSULTANT Uli Murphy MD LAB - CHEMISTRY FREDO CHAVES Performing Organization Address City/[facility]/ZIP Co de Phone Number [facility] [address] [address], [place] [phone] * SYPHILIS ANTIBODY CASCADING REFLEX (05/21/2024 2:29 AM BUSINESS INFO CONSULTANT) Treponema pallidum Antibody Non-react jaden Non-react jaden 05/22/2024 8:44 AM BUSINESS INFO CONSULTANT [facility] Comment: No Laboratory evidence of syphilis infection. Note: Circulating antibodies may be low or undetectable in early infection. If recent exposure is suspected, re-draw sample in 2-4 weeks and repeat testing. Blood BLOOD SPECIMEN / Unknown Lab Venipuncture / Unknown 05/21/2024 2:29 AM BUSINESS INFO CONSULTANT 05/21/2024 3:08 AM BUSINESS INFO CONSULTANT Uli Murphy MD LAB - SEROLOGY ORDER MALIHA [facility] [address] [place] [address], [facility] [phone] * HIV-1 HIV-2 ANTIBODY + HIV P24 AG PANEL (05/21/2024 2:29 AM BUSINESS INFO CONSULTANT) HIV Antigen/Antibod y 1 & 2 Non-reacti ve Non-react jaden 05/22/2024 8:44 AM BUSINESS INFO CONSULTANT [facility] Comment:No Laboratory eviden ce of HIV infection. Blood BLOOD SPECIMEN / Unknown Lab Venipuncture / Unknown 05/21/2024 2:29 AM BUSINESS INFO CONSULTANT 05/21/2024 3:08 AM BUSINESS INFO CONSULTANT Uli Murphy MD LAB - CHEMISTRY ORDE RABLES [facility] [address] [place] [address], [place] [phone] * CRYSTAL INDENTIFICATION SYNOVIAL FLUID (05/20/2024 6:41 PM BUSINESS INFO CONSULTANT) Crystal Exam Fluid To be performed by Pathology. See Path Review. 05/21/2024 8:16 AM BUSINESS INFO CONSULTANT [facility] Fluid SYNOVIAL FLUID / Unknown Collection / Unknown 05/20/2024 6:41 PM BUSINESS INFO CONSULTANT 05/21/2024 8:13 AM BUSINESS INFO CONSULTANT Gerardo Álvarez MD LAB - BODY FLUID ORD ERABLES [address] [address], [place] [phone] * PATHOLOGY SMEAR BODY FLUID (05/20/2024 6:41 PM BUSINESS INFO CONSULTANT) Only the most recent of2 resultswithin the time period is included. Path Review Fluid Confirmed 05/22/2024 4:04 PM BUSINESS INFO CONSULTANT [facility] Fluid SYNOVIAL FLUID / Unknown Collection / Unknown 05/20/2024 6:41 PM BUSINESS INFO CONSULTANT 05/21/2024 8:13 AM BUSINESS INFO CONSULTANT Narrative [facility] - 05/22/2024 4:04 PM BUSINESS INFO CONSULTANT No intracellular crystals seen. Gerardo Álvarez MD LAB - PATHOLOGY/CYTO LOGY ORDERABLES Performing Organization Address [facility]/ZIP Co de Phone Number [place] [address] [place] [address], [facility] [phone] * CULTURE WOUND+GRAM STAIN (05/20/2024 6:41 PM BUSINESS INFO CONSULTANT) Culture No growth LEANNE 05/23/2024 5:56 AM BUSINESS INFO CONSULTANT [facility] Gram Stain Moderate Polymorphonuclear cells 05/23/2024 5:56 AM BUSINESS INFO CONSULTANT [facility] Gram Stain Moderate Red blood cells 05/23/2024 5:56 AM BUSINESS INFO CONSULTANT [facility] Gram Stain No organisms seen 024 5:56 AM BUSINESS INFO CONSULTANT [facility] Microbiology ENTIRE KNEE REGION / Unknown Collection / Unknown 05/20/2024 6:41 PM BUSINESS INFO CONSULTANT 05/20/2024 6:49 PM BUSINESS INFO CONSULTANT Gerardo Álvarez MD LAB - MICROBIOLOGY O RDERABLES [facility] [address] [place] [address], [place] [phone] * (ABNORMAL) CULTURE ANAEROBE (05/20/2024 6:41 PM BUSINESS INFO CONSULTANT) Only the most recent of2 resultswithin the time period is included. Culture Light Gemella species(A) LEANNE 05/25/2024 12:32 PM BUSINESS INFO CONSULTANT [facility] Microbiology ENTIRE KNEE REGION / Unknown Collection / Unknown 05/20/2024 6:41 PM BUSINESS INFO CONSULTANT 05/20/2024 6:50 PM BUSINESS INFO CONSULTANT Gerardo Álvarez MD LAB - MICROBIOLOGY O RDERABLES [facility] [address] [place] [address], [facility] [phone] * ETT LINE PERFORMABLE (05/20/2024 6:24 PM BUSINESS INFO CONSULTANT) Narrative Kiko Garner Anes Asst - 05/20/2024 6:24 PM BUSINESS INFO CONSULTANT Kiko Garner Anes Asst 05/20/2024 6:27 PM Endotracheal Tube Placement: Patient Location: OR. Intubation Event Date/Time: 05/20/2024 6:10 PM Procedure: intubation (84669) Procedure Section: Sedation: under general anesthesia. Indications for Airway Management: anesthesia Procedure pretreatments used? No Induction: standard IV Patient Position: sniffing Mask Ventilation: easy. Blade Type: Nery Blade Size: 4 Laryngoscopy View: grade 2 (partial cords) Intubation Adjuncts: cricoid pressure Tube: endotracheal tube Placement: oral Tube type: cuff - inflated Tube Size (MM): 8 Depth of Insertion (CM): 23 Measured From: lips Cuff Inflated With: air Number of Attempts: 1. Placement Verified By: direct visualization and CO2 monitor Tube secured with: adhesive tape. Dentition unchanged? Yes Difficult Airway? No. Procedure Start Time: 05/20/2024 6:10 PM. Staff Section Anesthesia Provider: Nickolas Donahue MD Provider #1: Kiko Garner Anes Asst, Performed the procedure. Provider #2: Aoc Operations Intelligence Officer, Student Anesthesiology Aoc Operations Intelligence Officer Student Anesthesiology, Performed the procedure. Additional Comments: Atraumatic supervised intubation performed by Ramandeep Lawton, Student Anesthesiologist Aoc Operations Intelligence Officer.. Nickolas Donahue MD GENERAL ANESTHESIA O RDERABLES * TRANSFUSE PLATELET PHERESIS UNIT(S) (05/20/2024 3:17 AM BUSINESS INFO CONSULTANT) Sanjuana Salazar MD NURSING - BLOOD PROD TRANSFUSION * (ABNORMAL) URIC ACID BLOOD (05/19/2024 11:55 PM BUSINESS INFO CONSULTANT) Uric Acid 7.6(H) 3.5 - 7.2 mg/dL 05/20/2024 12:23 AM BUSINESS INFO CONSULTANT [facility] Blood BLOOD SPECIMEN / Unknown Venipuncture / Unknown 05/19/2024 11:55 PM BUSINESS INFO CONSULTANT 05/19/2024 11:58 PM BUSINESS INFO CONSULTANT Sanjuana Salazar MD LAB - CHEMISTRY ORDE RABLES [facility] [address] [place] [address], [facility] [phone] * CULTURE FUNGUS OTHER+FUNGUS SMEAR (05/19/2024 7:42 PM BUSINESS INFO CONSULTANT) Culture No fungus isolated LEANNE 06/14/2024 2:51 PM BUSINESS INFO CONSULTANT [facility] Fungus Stain No yeast or hyphae seen 06/14/2024 2:51 PM BUSINESS INFO CONSULTANT [facility] Microbiology SYNOVIAL FLUID / Unknown Collection / Unknown 05/19/2024 7:42 PM BUSINESS INFO CONSULTANT 05/19/2024 7:42 PM BUSINESS INFO CONSULTANT Sanjuana Salazar MD LAB - MICROBIOLOGY O RDERABLES [facility] [address] [place] [address], [facility] [phone] * DIFFERENTIAL MANUAL FLUID (05/19/2024 7:42 PM BUSINESS INFO CONSULTANT) Fluid Source Synovial 05/19/2024 9:14 PM BUSINESS INFO CONSULTANT [facility] Body Fluid Total Cell Count 100 x10E6/L 05/19/2024 9:[address] [facility] Neutrophils Fluid Percent 97 % 05/19/2024 9:14 PM [facility] Lymphocytes Fluid Percent 2 % 05/19/2024 9:14 PM BUSINESS INFO CONSULTANT [facility] Macrophages Fluid Percent 1 % 05/19/2024 9:14 PM [facility] Fluid SYNOVIAL FLUID / Unknown Collection / Unknown 05/19/2024 7:42 PM BUSINESS INFO CONSULTANT 05/19/2024 7:42 PM BUSINESS INFO CONSULTANT Narrative [facility] - 05/19/2024 9:14 PM BUSINESS INFO CONSULTANT No reference ranges established for body fluid differential cell counts. The test results must be integrated into the clinical context for interpretation. Sanjuana Salazar MD LAB - BODY FLUID ORD ERABLES Performing Organization Address City/[facility]/ZIP Co de Phone Number [facility] [address] [place] [address], [facility] [phone] * CULTURE FLUID+GRAM STAIN (05/19/2024 7:42 PM BUSINESS INFO CONSULTANT) Culture No growth LEANNE 05/23/2024 5:56 AM BUSINESS INFO CONSULTANT [facility] Gram Stain Light Polymorphonuclear cells 05/23/2024 5:56 AM BUSINESS INFO CONSULTANT [facility] Gram Stain No organisms seen 024 5:56 AM BUSINESS INFO CONSULTANT [facility] Other SYNOVIAL FLUID / Unknown Collection / Unknown 05/19/2024 7:42 PM BUSINESS INFO CONSULTANT 05/19/2024 7:42 PM BUSINESS INFO CONSULTANT Sanjuana Salazar MD LAB - MICROBIOLOGY O RDERABLES Performing Organization Address City/[facility]/ZIP Co de Phone Number [facility] [address] [place], [place] [address] [phone] * (ABNORMAL) CELL COUNT W DIFFERENTIAL FLUID (05/19/2024 7:42 PM BUSINESS INFO CONSULTANT) Fluid Source Synovial 05/19/2024 9:14 PM BUSINESS INFO CONSULTANT [facility] Fluid Appearance TURBID 05/19/2024 9:14 PM BUSINESS INFO CONSULTANT [facility] Fluid Color ORANGE 05/19/2024 9:14 PM BUSINESS INFO CONSULTANT [facility] Total Nucleated Cells Fluid 56,010(H) <=200 x10E6/L 05/19/2024 9:14 PM [facility] RBC Count Fluid 40,000 Reference Range Not Established x10E6/L 05/19/2024 9:14 PM BUSINESS INFO CONSULTANT [facility] Fluid SYNOVIAL FLUID / Unknown Collection / Unknown 05/19/2024 7:42 PM BUSINESS INFO CONSULTANT 05/19/2024 7:42 PM BUSINESS INFO CONSULTANT Narrative [facility] - 05/19/2024 9:14 PM BUSINESS INFO CONSULTANT No reference ranges established for body fluid cell counts. Any reference ranges provided are derived from published literature. The test results must be integrated into the clinical context for interpretation. Sanjuana Salazar MD LAB - BODY FLUID ORD ERABLES Performing Organization Address City/[facility]/ZIP Co de Phone Number [facility] [address] [place] [address], [facility] [phone] * TRANSFUSE PLATELET PHERESIS UNIT(S) (05/19/2024 5:26 PM BUSINESS INFO CONSULTANT) John Gutiérrez DO NURSING - BLOOD PROD TRANSFUSION * (ABNORMAL) LIPID PROFILE (12/25/2023 8:13 AM CDT) Pathologist [facility] Cholesterol Total 104 <200 mg/dL 12/25/2023 9:18 AM [facility] HDL 37(L) >40 mg/dL 12/25/2023 9:18 AM [facility] Comment: ATP III Classification of HDL Cholesterol: <40 mg/dL: Considered a major risk factor. >60 mg/dL: Considered a negative risk factor. LDL Calculated 56 <100 mg/dL 12/25/2023 9:18 AM [facility] Comment: ATP III Classification of LDL Cholesterol: <100 mg/dL: Optimal 100 - 129 mg/dL: Near Optimal/Above Optimal 130 - 159 mg/dL: Borderline High 160 - 189 mg/dL: High >190 mg/dL: Very High Triglycerides 57 <150 mg/dL 12/25/2023 9:18 AM [facility] Comment: ATP III Classification of Triglycerides: <150 mg/dL: Normal 150 - 199 mg/dL: Borderline High 200 - 400 mg/dL: High >500 mg/dL: Very High Blood BLOOD SPECIMEN / Unknown Lab Venipuncture / Unknown 12/25/2023 8:13 AM CDT 12/25/2023 8:37 AM CDT Eugenie Dsouza TECHNOLOGY INFUSION SPECIALIST-CHILD CARE ASSOCIATE LAB - CHEMI STRY ORDERABLES [facility] [address] [facility] [place] [address], [facility] [phone] * ENDOSCOPY, COLON, DIAGNOSTIC (01/12/2020 3:38 PM CDT) Report Endoscopy POC Endoscopy Department Report _ Patient Name: Jj Cuello Procedure Date: 01/12/2020 3:38 PM Date of : 1965 Classification: Outpatient Gender: Male Ethnicity: Not or Race: White _ Providers: Connor Virgen Referring MD: Melecio Graves (Referring MD) Procedure: Upper GI endoscopy Indications: Dysphagia, Variceal surveillance Medications: See the Anesthesia note for documentation of the administered medications Patient Profile: 54M w/ decompensated EtOH cirrhosis c/b EVB s/p EVL (last EGD 03/2019 w/ grade II EVs, PHG s/p APC), LVP dependent ascites w/ prior SBP on ABX ppx, in addition to MPGN related ESRD. Here for EGD for variceal surveillance and screening colonoscopy. Description of Procedure: Pre-Anesthesia Assessment: Prior to the procedure, a History and Physical was performed, and patient medications and allergies were reviewed. The patient's tolerance of previous anesthesia was also reviewed. The risks and benefits of the procedure and the sedation options and risks were discussed with the patient. All questions were answered, and informed consent was obtained. Prior Anticoagulants: The patient has taken no previous anticoagulant or antiplatelet agents. ASA Grade Assessment: III - A patient with severe systemic disease. After reviewing the risks and benefits, the patient was deemed in satisfactory condition to undergo the procedure. After obtaining informed consent, the endoscope was passed under direct vision. Throughout the procedure, the patient's blood pressure, pulse, and oxygen saturations were monitored continuously. The GIF-H190 was introduced through the mouth, and advanced to the second part of duodenum. The upper GI endoscopy was accomplished without difficulty. The patient tolerated the procedure well. Findings: Small (< 5 mm) varices were found in the distal esophagus. There was no stigmata of bleeding. The entire examined stomach was normal. 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 One of these was biopsied with a cold forceps for histology. The remainder of the examined duodenum was normal appearing. Estimated Blood Loss: Estimated blood loss: none. Complications: No immediate complications. Impression: - Small esophageal varices with no bleeding stigmata. - Normal stomach. 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 Biopsied. Recommendation: - Await pathology results. - Repeat EGD for variceal surveillance purposes in 1 year. - Proceed with tandem Colonoscopy. Attending Participation: I personally performed the entire procedure. Procedure Code(s): --- Professional --- 03344, Esophagogastroduo denoscopy, flexible, transoral; with biopsy, single or multiple Diagnosis Code(s): --- Professional --- I85.00, Esophageal varices without bleeding K31.7, Polyp of stomach and duodenum R13.10, Dysphagia, unspecified CPT copyright 2019 [employer]. All rights reserved. The codes documented in this report are preliminary and upon athletic events scorer review may be revised to meet current compliance requirements. _ Connor Virgen, 01/12/2020 4:25:45 PM Note Initiated On: 01/12/2020 3:38 PM Number of Addenda: 0 [facility] [address] [place] [address] [facility] PROVATION 01/12/2020 3:38 PM CDT Connor Chavez MD GI PROCEDURE ORDERABLES [facility] PROVATION from Last 3 Months or Most Recently Relevant to Health Maintenance Administered Medications Advance Directives Documents on File Type Date Recorded Patient Student Support Advisor Expl anation Adv Directive/Living Will/POA 06/05/2019 * Full Code (Latest Code Status on File) Date Activated Date Inactivated Comments 06/11/2024 7:21 PM 06/14/2024 12:17 PM * Full Code Date Activated Date Inactivated Comments 05/19/2024 7:08 PM 05/28/2024 4:47 PM * Full Code Date Activated Date Inactivated Comments 10/29/2023 1:00 PM 11/02/2023 9:13 PM * Full Code Date Activated Date Inactivated Comments 02/21/2022 2:16 PM 02/22/2022 12:05 PM * Full Code Date Activated Date Inactivated Comments 07/19/2021 10:59 PM 07/20/2021 2:28 PM Care Teams Patient Placement Coordinator Relationship Specialty Start Date End Date Efren Ramirez DO [address] [place] [id number] PCP - General Internal Medicine 06/12/24
--- OUTSIDE RECORDS SUMMARY | 2024-08-12 09:10 | XMS_ITS | Referral Summary ---
Author Organization [facility] Address [address] [place] [address] Care Team Providers Care Radiotelegraphist Name Role Phone Dm Pena MD Primary Care Provider [phone] Sarah Jimenez RN Unavailable [phone] Hermelindo Avilez MD Unavailable [phone] Encounters Date Type Department Care Team Description 07/03/2024 Telephone [facility] [address] [facility] [address] [id number] [place] [address] Salena Mcdowell 07/03/2024 Telephone [facility] [address] [facility] [address] [id number] [place] [address] Shahida Avila from Last 3 Months Allergies Active Allergy Reactions Criticality Noted Date Comments Lisinopril Swelling,Unknown Medium 09/14/2014 Medications ciprofloxacin (CIPRO) 250 mg tablet TK 1 T PO QD 04/19/2020 Active lisinopriL (PRINIVIL,ZESTR IL) 20 mg tablet 05/18/2020 Active melatonin tablet Take 5 mg by mouth nightly as needed Active nadoloL (CORGARD) 20 mg tablet TK 1 T PO QD 03/09/[address] (PROTONIX) 40 mg EC tablet TK 1 T PO D 05/13/2020 Acti ve sevelamer (RENVELA) 800 mg tablet TK 2 TS PO WITH MEALS TID AND 1 T WITH A SNACK QD 05/26/2020 Active sildenafiL (VIAGRA) 50 mg tablet 05/28/2020 Active traZODone (DESYREL) 50 mg tablet 03/02/2021 Active Active Problems Problem Noted Date Diagnosed Date End stage liver disease 09/22/2020 Alcoholic liver disease 06/30/2020 Alcohol dependence in remission (CMS/HCC) 2019 Atrial flutter (CMS/HCC) 06/30/2020 ESRD (end stage renal disease) (CMS/HCC) 020 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 Once a week 09/21/2020 How often do you get togethe r with friends or relatives? Never 09/21/2020 How often do you attend chur ch or religion services? Never 09/21/2020 Do you belong to any clubs o r organizations such as jainism groups, unions, fraternal or athletic groups, or school groups? Yes 09/21/2020 How often do you attend meet ings of the clubs or organizations you belong to? More than 4 times per year 09/21/2020 Are you , , di vorced, , never , or living with a partner? 09/21/2020 Overall Financial Resource Strain (CARDIA) Answe r Date Recorded How hard is it for you to pa y for the very basics like food, housing, medical care, and heating? Not hard at all 09/21/2020 Hunger Vital Sign Answer Date Recorded Within the past 12 months, y ou worried that your food would run out before you got the money to buy more. Never true 09/22/19 21 Within the past 12 months, t he food you bought just didn't last and you didn't have money to get more. Never true 09/21/2020 PRAPARE - Transportation Answer Date Re corded In the past 12 months, has l ack of transportation kept you from medical appointments or from getting medications? No 08/31 In the past 12 months, has l ack of transportation kept you from meetings, work, or from getting things needed for daily living? 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 Not on file Not on file Last Filed Vital Signs Vital Sign Reading Time Taken Comments Blood Pressure 171/83 03/09/2021 8:37 AM CDT Pulse 80 03/09/2021 8:37 AM CDT Temperature 37 C (98.6 F) 03/09/2021 8:37 AM CDT Respiratory Rate - - Oxygen Saturation 100% 03/05/2019 2:31 PM CDT Inhaled Oxygen Concentration - - Weight 85.4 kg (188 lb 3.2 oz) 03/09/2021 8:37 A M CDT Height 175.3 cm (5' 9 ) 03/09/2021 8:37 AM CDT Body Mass Index 27.79 03/09/2021 8:37 AM CDT Plan of Treatment Not on file Insurance [place] [facility] [place] [facility] MEDICARE Care Teams Radiotelegraphist Relationship Specialty Start Date End Date Dm Pena MD [address] [place] [address] PCP - General 03/05/19 Sarah Jimenez, RN [address] [address] Manager Book 09/23/20 Hermelindo Avilez MD [address] [address] Referring Physician Nephrology 09/23/20
--- OUTSIDE RECORDS SUMMARY | 2024-08-12 09:10 | XMS_ITS | Encounter Summary ---
Author Organization [facility] Address [address] [place] [address] Care Team Providers Care Loss Prevention Leader Name Role Phone Dm Pena MD Primary Care Provider [phone] Efren Ramirez DO Primary Care Provider [phone] Encounter Details Date Type Department Care Team (Late st Contact Info) Description 07/15/2019 Pre-evaluation Visit [facility] PT [address] [place] [id number] Allie Noland, PT Social History Tobacco Use Types Packs/Day Years Used Date Smoking Tobacco: Never Smokeless Tobacco: Current Chew Alcohol Use Standard Drinks/Week Comments Yes 0 [...] or have serious hearing difficult y? No 04/18/2019 Is person blind or have serious difficulty seein g? No 04/18/2019 Does person have serious dif ficulty walking/climbing stairs? No 04/18/2019 Does person have difficulty dressing/bathing? No 04/18/2019 Does person have difficulty doing errands alone? No 04/18/2019 Cognitive Status Response Date of Assessm ent Does person have difficulty concentrating/remembering/making decisions? No 04/18/2019 documented as of this encounter Plan of Treatment Upcoming Encounters Date Type Department Care Team (Late st Contact Info) Description 08/14/2024 10:45 AM DENTAL TECHNICIAN INSTRUCTOR Office Visit [facility] - Orthopedics [address] [place] [address], [place] [address] Yaima Dobbins MD [address] [place] [address] [place] [address] documented as of this encounter Visit Diagnoses Not on filedocumented in this encounter Additional Health Concerns Infection Onset Date Last Indicated Resolved Time COVID-19 Under Investigation 09/20/2020 09/20/2020 09/20/2020 10:10 PM CDT COVID-19 Under Investigation 07/19/2021 07/19/2021 07/19/2021 1:09 PM DENTAL TECHNICIAN INSTRUCTOR COVID-19 Confirmed 07/19/2021 07/19/2021 4:33 AM DENTAL TECHNICIAN INSTRUCTOR COVID-19 Under Investigation 10/29/2023 10/29/2023 10/29/2023 9:28 AM CDT documented as of this encounter Care Teams Loss Prevention Leader Relationship Specialty Start Date End Date Dm Pena MD [address] [address] PCP - General Family Medicine 02/06/19 06/11/24 Efren Ramirez DO [address] [place] [address] PCP - General Internal Medicine 06/12/24 documented as of this encounter
--- OUTSIDE RECORDS SUMMARY | 2024-08-12 09:10 | XMS_ITS | Clinical Summary ---
Author Organization [facility] Address [address] [place] [address] Phone Care Team Providers Care Oil Analyst Name Role Phone Unavailable Primary Care Provider Unavailabl e Social History Tobacco Use Types Packs/Day Years Used Date Smoking Tobacco: Never Assessed Sex and Gender Information Value Date Recorded Sex Assigned at Not on file Legal Sex Male 8:48 AM CDT Gender Identity Not on file Sexual Orientation Not on file Plan of Treatment Health Maintenance Due Date Last Done Comments Hepatitis C Virus (HCV) Screening 1965 Hepatitis B Immunization (1 of 3 - 19+ 3-dose series) 1984 Colonoscopy 2010 Colorectal Cancer Screening 2010 Cologuard 12/07/2015 Immunochemical Fecal Occult Blood 12/07/2015 Zoster Immunization (1 of 2) 12/07/2015 PSA Discussion 2020 Pneumococcal Immunization (5 0+ years) (2 of 2 - PCV) 11/02/2022 11/02/2021 Influenza Immunization (#1) 03/02/202403/03, 04/27/2017, 04/02/2015 SARS-COV-2 Immunization ( - season) 2024 Respiratory Syncytial Virus (RSV) Immunization (Adult) (1 - 1-dose 75+ series) 2040 DTaP/Tdap/Td Immunization Discontinued 12/24/2017 TdaP Immunization Completed 12/24/2017 Pneumococcal Immunization Combined Discontinued 11/02/2021 Meningococcal Immunization (ACWY) Aged Out No longer eligible based on patient's age to complete this topic Rotavirus Immunization Aged Out No lo nger eligible based on patient's age to complete this topic
--- OUTSIDE RECORDS SUMMARY | 2024-08-12 09:10 | XMS_ITS ---
Author Organization [facility] Nakita desouza ([facility]) Address [address] [place] [id number] Care Team Providers Care Business Process Analyst Name Role Phone Unavailable Unavailable Unavailable Allergies, Adverse Reactions, Alerts Allergy Name Allergy Type Status Severity Reaction(s) Onset Date Inactive Date Treating Clinician Comments Heparin Allergy Active Intolerance 2022-04 05:00:0 0 Medications Ordered Medication Name Filled Medication Name Start Date Stop Date Current Medication? Ordering Clinician Indication Dosage Frequency Signature (SIG) Comments Components calcitriol 08-11 16:13: 24 Yes [id number] Number of Repeats Allowed: Frequency: Three times a week Mircera 08-10 17:58: 21 Yes [id number] Number of Repeats Allowed: Frequency: ISABELL dosing, every two weeks Venofer 07-26 16:40: 35 Yes [id number] Number of Repeats Allowed: Frequency: One time a weekDosesO rdered: Maintenanc e Dose 50 Milligram Route: Intravenou s Pantoprazol e Sodium 07-14 21:56: 14 Yes Number of Repeats Allowed: Frequency: One time a day Nadolol 07-14 21:55: 41 Yes Number of Repeats Allowed: Frequency: One time a day Norvasc 07-14 21:55: 14 Yes Number of Repeats Allowed: Frequency: One time a day Sevelamer Carbonate 07-04 16:57: 52 Yes Number of Repeats Allowed: Frequency: Three times a day Melatonin 07-04 16:54: 43 Yes Number of Repeats Allowed: Frequency: As needed hydrALAZINE HCl 11-04 18:26: 03 Yes Number of Repeats Allowed: Frequency: Three times a day ONS [facility] 10-20 15:14: 48 Yes [id number] Number of Repeats Allowed: Frequency: Every Dialysis Treatment levETIRAcet am 3-15 21:05: 09 Yes Number of Repeats Allowed: Frequency: Every twelve hours ondansetron hydrochlori de 2021-07 06:00: 00 Yes [id number] Number of Repeats Allowed: Frequency: Every 4 hours as needed acetaminoph en 2021-07 06:00: 00 Yes [id number] Number of Repeats Allowed: Frequency: Every 4 hours as needed diphenhydra mine hydrochlori de 2021-07 06:00: 00 Yes [id number] Number of Repeats Allowed: Frequency: Every 4 hours as needed Oxygen 2021-07 06:00: 00 Yes [id number] Number of Repeats Allowed: Frequency: As needed clonidine 2021-07 06:00: 00 Yes [id number] Number of Repeats Allowed: Frequency: Every 4 hours as needed diphenhydra mine hydrochlori de 2021-07 06:00: 00 Yes [id number] Number of Repeats Allowed: Frequency: Every 4 hours as needed EpiPen 2-Tato 2021-07 06:00: 00 Yes [id number] Number of Repeats Allowed: Frequency: Every 4 hours as needed Normal Saline Solution 0.9% NaCl 2021-07 06:00: 00 Yes [id number] Number of Repeats Allowed: Frequency: As needed Problems This patient has no known problems. Procedures Procedure Date / Time Performed Performing Clinician Yina ce Details AV Graft 2022-02-21 05:00:00 Access Site Upper Arm (Left) Access Use Start Date 2022-03-31 05:00:0 0 DIALYSIS TREATMENT INFORMATION Conventional Hemodialysis Date Type Treatment Start Date Treatment End Date Pre-Treatment Vitals Post-Treatment Vitals Weight Gain BFR DFR Actual UF Dialysis Access Febru [email or web address] In-Ce nter Hemod ialys is Treat ment 2024-08-12 T11:10:26. 000Z 2024-08-12 T14:12:06. 000Z BP Sitting (Pre-Dialysis) 133/69 mmHg Sitting Heart Rate Pre-Dialysis 57 BPM Temperature Pre-Dialysis 98 degF August 08, 2024 In-Center Hemodialysis Treatment 7356-93-01H09:11:16.000Z 1239-29-02Z74:27:06.000Z BP Sitting (Pre-Dialysis) 130/61 mmHg BP Sitting (Post-Dialysis) 115/59 mmHg Concurrent Access: falseAV Graft Upper Arm (Left) Arterial BP Standing (Pre-Dialysis) 126/67 mmHg Sitti ng Heart Rate Post-Dialysis 65 BPM Sitting Heart Rate Pre-Dialysis 66 BPM Temperatu re Post-Dialysis 98.5 degF Standing Heart Rate Pre-Dialysis 69 BPM Temperature Pre-Dialysis 98.6 degF August 07, 2024 In-Center Hemodialysis Treatment 2832-25-78F08:15:19.000Z 3998-74-16A51:21:09.000Z BP Sitting (Pre-Dialysis) 133/73 mmHg BP Sitting (Post-Dialysis) 137/61 mmHg Concurrent Access: falseAV Graft Upper Arm (Left) Arterial Sitting Heart Rate Pre-Dialysis 59 BPM Sitting H eart Rate Post-Dialysis 58 BPM Temperature Pre-Dialysis 98.3 degF Temperature Post -Dialysis 98.2 degF August 05, 2024 In-Center Hemodialysis Treatment 4845-89-10Z33:01:00.000Z 3440-94-99Y43:23:18.000Z BP Sitting (Pre-Dialysis) 114/56 mmHg BP Sitting (Post-Dialysis) 125/61 mmHg Concurrent Access: falseAV Graft Upper Arm (Left) Arterial BP Standing (Pre-Dialysis) 122/62 mmHg Sitting Heart Rate Post-Dialysis 60 BPM Sitting Heart Rate Pre-Dialysis 56 BPM Temperatu re Post-Dialysis 98 degF Standing Heart Rate Pre-Dialysis 59 BPM Temperature Pre-Dialysis 98.1 degF August 01, 2024 In-Center Hemodialysis Treatment 9225-22-13Q71:58:06.000Z 5188-96-09R11:58:00.000Z BP Sitting (Pre-Dialysis) 123/68 mmHg BP Sitting (Post-Dialysis) 135/60 mmHg Concurrent Access: falseAV Graft Upper Arm (Left) Arterial Sitting Heart Rate Pre-Dialysis 68 BPM Sitting H eart Rate Post-Dialysis 58 BPM Temperature Pre-Dialysis 98.7 degF Temperature Post -Dialysis 98 degF July 30, 2024 In-Center Hemodialysis Treatment 6068-83-14L04:05:44.000Z 9939-37-48N40:05:19.000Z BP Sitting (Pre-Dialysis) 131/65 mmHg BP Sitting (Post-Dialysis) 119/62 mmHg Concurrent Access: falseAV Graft Upper Arm (Left) Arterial BP Standing (Pre-Dialysis) 133/66 mmHg Sitti ng Heart Rate Post-Dialysis 63 BPM Sitting Heart Rate Pre-Dialysis 66 BPM Temperatu re Post-Dialysis 98.2 degF Standing Heart Rate Pre-Dialysis 69 BPM Temperature Pre-Dialysis 99.8 degF July 25, 2024 In-Center Hemodialysis Treatment 1791-40-33C94:59:35.000Z 6872-22-39I73:17:55.000Z BP Sitting (Pre-Dialysis) 120/61 mmHg BP Sitting (Post-Dialysis) 116/58 mmHg Concurrent Access: falseAV Graft Upper Arm (Left) Arterial Sitting Heart Rate Pre-Dialysis 62 BPM Sitting H eart Rate Post-Dialysis 61 BPM Temperature Pre-Dialysis 98 degF Temperature Post -Dialysis 98.2 degF July 23, 2024 In-Center Hemodialysis Treatment 6009-53-49E69:02:00.000Z 6413-08-71K10:03:01.000Z BP Sitting (Pre-Dialysis) 126/55 mmHg BP Sitting (Post-Dialysis) 134/72 mmHg Concurrent Access: falseAV Graft Upper Arm (Left) Arterial BP Standing (Pre-Dialysis) 113/61 mmHg BP Standing (P ost-Dialysis) 127/63 mmHg Sitting Heart Rate Pre-Dialysis 61 BPM Sitting Heart Rate Post-Dialysis 59 BPM Standing Heart Rate Pre-Dialysis 62 BPM Standing Heart Rate Post-Dialysis 58 BPM Temperature Pre-Dialysis 98.3 degF Temperature Post -Dialysis 98.4 degF July 21, 2024 In-Center Hemodialysis Treatment 7186-47-31P63:01:00.000Z 0887-60-08I01:33:25.000Z BP Sitting (Pre-Dialysis) 113/58 mmHg BP Sitting (Post-Dialysis) 118/55 mmHg Concurrent Access: falseAV Graft Upper Arm (Left) Arterial BP Standing (Pre-Dialysis) 124/60 mmHg BP Standing (P ost-Dialysis) 120/55 mmHg Sitting Heart Rate Pre-Dialysis 64 BPM Sitting Heart Rate Post-Dialysis 62 BPM Standing Heart Rate Pre-Dialysis 65 BPM Standing Heart Rate Post-Dialysis 65 BPM Temperature Pre-Dialysis 97.9 degF Temperature Post -Dialysis 98.2 degF July 18, 2024 In-Center Hemodialysis Treatment 7234-22-87P22:59:00.000Z 9454-60-14B21:10:00.000Z BP Sitting (Pre-Dialysis) 128/65 mmHg BP Sitting (Post-Dialysis) 135/58 mmHg Concurrent Access: falseAV Graft Upper Arm (Left) Arterial BP Standing (Pre-Dialysis) 140/64 mmHg Sitti ng Heart Rate Post-Dialysis 61 BPM Sitting Heart Rate Pre-Dialysis 60 BPM Temperatu re Post-Dialysis 97.2 degF Standing Heart Rate Pre-Dialysis 62 BPM Temperature Pre-Dialysis 98.6 degF July 16, 2024 In-Center Hemodialysis Treatment 3497-19-78N84:00:00.000Z 8182-60-97G40:01:09.000Z BP Sitting (Pre-Dialysis) 131/62 mmHg BP Sitting (Post-Dialysis) 109/51 mmHg Concurrent Access: falseAV Graft Upper Arm (Left) Arterial BP Standing (Pre-Dialysis) 127/62 mmHg BP Standing (P ost-Dialysis) 124/57 mmHg Sitting Heart Rate Pre-Dialysis 60 BPM Sitting Heart Rate Post-Dialysis 61 BPM Standing Heart Rate Pre-Dialysis 59 BPM Standing Heart Rate Post-Dialysis 61 BPM Temperature Pre-Dialysis 96.3 degF Temperature Post -Dialysis 99.8 degF July 14, 2024 In-Center Hemodialysis Treatment 8406-40-95A34:00:10.000Z 0067-70-34A14:32:40.000Z BP Sitting (Pre-Dialysis) 138/76 mmHg BP Sitting (Post-Dialysis) 133/65 mmHg Concurrent Access: falseAV Graft Upper Arm (Left) Arterial Sitting Heart Rate Pre-Dialysis 62 BPM Sitting H eart Rate Post-Dialysis 60 BPM Temperature Pre-Dialysis 98 degF Temperature Post -Dialysis 97.8 degF July 12, 2024 In-Center Hemodialysis Treatment 2048-47-99G18:57:00.000Z 9710-34-54R49:05:46.000Z BP Sitting (Pre-Dialysis) 144/68 mmHg BP Sitting (Post-Dialysis) 128/74 mmHg Concurrent Access: falseAV Graft Upper Arm (Left) Arterial Sitting Heart Rate Pre-Dialysis 63 BPM Sitting H eart Rate Post-Dialysis 62 BPM Temperature Pre-Dialysis 98.2 degF Temperature Post -Dialysis 99 degF July 10, 2024 In-Center Hemodialysis Treatment 9382-78-84X95:08:54.000Z 6850-31-24Z04:37:45.000Z BP Sitting (Pre-Dialysis) 118/56 mmHg BP Sitting (Post-Dialysis) 132/63 mmHg Concurrent Access: falseAV Graft Upper Arm (Left) Arterial Sitting Heart Rate Pre-Dialysis 63 BPM Sitting H eart Rate Post-Dialysis 69 BPM Temperature Pre-Dialysis 98.6 degF Temperature Post -Dialysis 97 degF July 07, 2024 In-Center Hemodialysis Treatment 7355-85-49B46:07:00.000Z 3800-17-38Q05:06:23.000Z BP Sitting (Pre-Dialysis) 118/56 mmHg BP Sitting (Post-Dialysis) 130/67 mmHg Concurrent Access: falseAV Graft Upper Arm (Left) Arterial Sitting Heart Rate Pre-Dialysis 64 BPM Sitting H eart Rate Post-Dialysis 65 BPM Temperature Pre-Dialysis 98.7 degF Temperature Post -Dialysis 96.4 degF July 04, 2024 In-Center Hemodialysis Treatment 9749-62-58H00:53:00.000Z 0418-34-31X42:58:31.000Z BP Sitting (Pre-Dialysis) 127/64 mmHg BP Sitting (Post-Dialysis) 138/66 mmHg Concurrent Access: falseAV Graft Upper Arm (Left) Arterial Sitting Heart Rate Pre-Dialysis 63 BPM Sitting H eart Rate Post-Dialysis 59 BPM Temperature Pre-Dialysis 98.2 degF Temperature Post -Dialysis 98 degF July 01, 2024 In-Center Hemodialysis Treatment 7501-08-96O98:00:00.000Z 3655-81-93Y73:07:55.000Z BP Sitting (Pre-Dialysis) 113/44 mmHg BP Sitting (Post-Dialysis) 113/54 mmHg Concurrent Access: falseAV Graft Upper Arm (Left) Arterial Sitting Heart Rate Pre-Dialysis 65 BPM Sitting H eart Rate Post-Dialysis 62 BPM Temperature Pre-Dialysis 97.9 degF Temperature Post -Dialysis 98.2 degF June 29, 2024 In-Center Hemodialysis Treatment 4475-88-54Y38:03:07.000Z 0220-97-43K62:04:46.000Z BP Sitting (Pre-Dialysis) 141/68 mmHg BP Sitting (Post-Dialysis) 134/65 mmHg Concurrent Access: falseAV Graft Upper Arm (Left) Arterial Sitting Heart Rate Pre-Dialysis 66 BPM Sitting H eart Rate Post-Dialysis 63 BPM Temperature Pre-Dialysis 98.4 degF Temperature Post -Dialysis 98.7 degF June 27, 2024 In-Center Hemodialysis Treatment 3982-23-73A34:09:11.000Z 6167-06-48S56:30:01.000Z BP Sitting (Pre-Dialysis) 111/61 mmHg BP Sitting (Post-Dialysis) 115/57 mmHg Concurrent Access: falseAV Graft Upper Arm (Left) Arterial Sitting Heart Rate Pre-Dialysis 60 BPM Sitting H eart Rate Post-Dialysis 63 BPM Temperature Pre-Dialysis 98.4 degF Temperature Post -Dialysis 98.7 degF June 24, 2024 In-Center Hemodialysis Treatment 7833-71-15K64:13:00.000Z 9562-67-48R50:14:36.000Z BP Sitting (Pre-Dialysis) 111/59 mmHg BP Sitting (Post-Dialysis) 111/53 mmHg Concurrent Access: falseAV Graft Upper Arm (Left) Arterial Sitting Heart Rate Pre-Dialysis 63 BPM Sitting H eart Rate Post-Dialysis 67 BPM Temperature Pre-Dialysis 98.7 degF Temperature Post -Dialysis 98.1 degF June 22, 2024 In-Center Hemodialysis Treatment 6384-02-49E01:03:00.000Z 2433-14-13H45:16:33.000Z BP Sitting (Pre-Dialysis) 123/56 mmHg BP Sitting (Post-Dialysis) 126/67 mmHg Concurrent Access: falseAV Graft Upper Arm (Left) Arterial Sitting Heart Rate Pre-Dialysis 61 BPM Sitting H eart Rate Post-Dialysis 64 BPM Temperature Pre-Dialysis 97.8 degF Temperature Post -Dialysis 98.6 degF June 20, 2024 In-Center Hemodialysis Treatment 4237-22-27U79:10:49.000Z 8953-93-90V83:13:44.000Z BP Sitting (Pre-Dialysis) 115/75 mmHg BP Sitting (Post-Dialysis) 109/51 mmHg Concurrent Access: falseAV Graft Upper Arm (Left) Arterial Sitting Heart Rate Pre-Dialysis 65 BPM Sitting H eart Rate Post-Dialysis 68 BPM Temperature Pre-Dialysis 98.4 degF Temperature Post -Dialysis 98.5 degF June 16, 2024 In-Center Hemodialysis Treatment 5270-21-16V37:04:00.000Z 6370-80-92G31:37:16.000Z BP Sitting (Pre-Dialysis) 112/57 mmHg BP Sitting (Post-Dialysis) 109/53 mmHg Concurrent Access: falseAV Graft Upper Arm (Left) Arterial Sitting Heart Rate Pre-Dialysis 57 BPM Sitting H eart Rate Post-Dialysis 59 BPM Temperature Pre-Dialysis 97.9 degF Temperature Post -Dialysis 98 degF June 09, 2024 In-Center Hemodialysis Treatment 9247-62-27E67:11:00.000Z 1846-85-24N19:23:11.000Z BP Sitting (Pre-Dialysis) 120/56 mmHg BP Sitting (Post-Dialysis) 122/59 mmHg Concurrent Access: falseAV Graft Upper Arm (Left) Arterial Sitting Heart Rate Pre-Dialysis 61 BPM Sitting H eart Rate Post-Dialysis 66 BPM Temperature Pre-Dialysis 98.2 degF Temperature Post -Dialysis 98 degF June 06, 2024 In-Center Hemodialysis Treatment [id number]:54:00.000Z 9818-85-33U15:55:25.000Z BP Sitting (Pre-Dialysis) 118/59 mmHg BP Sitting (Post-Dialysis) 127/62 mmHg Concurrent Access: falseAV Graft Upper Arm (Left) Arterial Sitting Heart Rate Pre-Dialysis 62 BPM Sitting H eart Rate Post-Dialysis 70 BPM Temperature Pre-Dialysis 99.5 degF Temperature Post -Dialysis 98 degF June 05, 2024 In-Center Hemodialysis Treatment 7425-56-59R13:59:00.000Z 3906-38-59I16:58:01.000Z BP Sitting (Pre-Dialysis) 131/66 mmHg BP Sitting (Post-Dialysis) 131/62 mmHg Concurrent Access: falseAV Graft Upper Arm (Left) Arterial Sitting Heart Rate Pre-Dialysis 61 BPM Sitting H eart Rate Post-Dialysis 69 BPM Temperature Pre-Dialysis 97.9 degF Temperature Post -Dialysis 98.6 degF June 03, 2024 In-Center Hemodialysis Treatment 7355-15-82I43:55:00.000Z 4818-60-02H92:56:33.000Z BP Sitting (Pre-Dialysis) 116/61 mmHg BP Sitting (Post-Dialysis) 138/63 mmHg Concurrent Access: falseAV Graft Upper Arm (Left) Arterial Sitting Heart Rate Pre-Dialysis 61 BPM Sitting H eart Rate Post-Dialysis 66 BPM Temperature Pre-Dialysis 99.4 degF Temperature Post -Dialysis 99.6 degF May 31, 2024 In-Center Hemodialysis Treatment 2115-94-94E01:56:00.000Z 4933-42-25H67:57:17.000Z BP Sitting (Pre-Dialysis) 106/53 mmHg BP Sitting (Post-Dialysis) 139/74 mmHg Concurrent Access: falseAV Graft Upper Arm (Left) Arterial Sitting Heart Rate Pre-Dialysis 61 BPM Sitting H eart Rate Post-Dialysis 63 BPM Temperature Pre-Dialysis 98 degF Temperature Post -Dialysis 98.8 degF May 16, 2024 In-Center Hemodialysis Treatment 1574-13-26F71:06:00.000Z 8575-23-17A26:38:31.000Z BP Sitting (Pre-Dialysis) 120/72 mmHg BP Sitting (Post-Dialysis) 122/74 mmHg Concurrent Access: falseAV Graft Upper Arm (Left) Arterial BP Standing (Pre-Dialysis) 142/73 mmHg BP Standing (P ost-Dialysis) 114/65 mmHg Sitting Heart Rate Pre-Dialysis 63 BPM Sitting Heart Rate Post-Dialysis 65 BPM Standing Heart Rate Pre-Dialysis 65 BPM Standing Heart Rate Post-Dialysis 63 BPM Temperature Pre-Dialysis 98.1 degF Temperature Post -Dialysis 98.2 degF May 14, 2024 In-Center Hemodialysis Treatment 1905-33-36I20:00:00.000Z 4742-50-43A61:07:08.000Z BP Sitting (Pre-Dialysis) 119/58 mmHg BP Sitting (Post-Dialysis) 125/66 mmHg Concurrent Access: falseAV Graft Upper Arm (Left) Arterial BP Standing (Pre-Dialysis) 137/62 mmHg BP Standing (P ost-Dialysis) 110/56 mmHg Sitting Heart Rate Pre-Dialysis 60 BPM Sitting Heart Rate Post-Dialysis 62 BPM Standing Heart Rate Pre-Dialysis 68 BPM Standing Heart Rate Post-Dialysis 63 BPM Temperature Pre-Dialysis 98 degF Temperature Post -Dialysis 98.5 degF May 12, 2024 In-Center Hemodialysis Treatment 0858-87-86L91:01:00.000Z 2192-42-21X32:05:47.000Z BP Sitting (Pre-Dialysis) 120/61 mmHg BP Sitting (Post-Dialysis) 120/64 mmHg Concurrent Access: falseAV Graft Upper Arm (Left) Arterial BP Standing (Pre-Dialysis) 120/66 mmHg BP Standing (P ost-Dialysis) 103/68 mmHg Sitting Heart Rate Pre-Dialysis 59 BPM Sitting Heart Rate Post-Dialysis 61 BPM Standing Heart Rate Pre-Dialysis 61 BPM Standing Heart Rate Post-Dialysis 64 BPM Temperature Pre-Dialysis 98.2 degF Temperature Post -Dialysis 98.8 degF May 09, 2024 In-Center Hemodialysis Treatment [id number]:03:09.000Z [id number]:10:14.000Z BP Sitting (Pre-Dialysis) 124/59 mmHg BP Sitting (Post-Dialysis) 130/61 mmHg Concurrent Access: falseAV Graft Upper Arm (Left) Arterial BP Standing (Pre-Dialysis) 132/56 mmHg BP Standing (P ost-Dialysis) 124/62 mmHg Sitting Heart Rate Pre-Dialysis 61 BPM Sitting Heart Rate Post-Dialysis 60 BPM Standing Heart Rate Pre-Dialysis 62 BPM Standing Heart Rate Post-Dialysis 63 BPM Temperature Pre-Dialysis 98 degF Temperature Post -Dialysis 98.5 degF May 05, 2024 In-Center Hemodialysis Treatment 9589-54-00X42:03:38.000Z 5787-19-66U57:04:03.000Z BP Sitting (Pre-Dialysis) 130/68 mmHg BP Sitting (Post-Dialysis) 138/63 mmHg Concurrent Access: falseAV Graft Upper Arm (Left) Arterial BP Standing (Pre-Dialysis) 132/66 mmHg Sitti ng Heart Rate Post-Dialysis 59 BPM Sitting Heart Rate Pre-Dialysis 61 BPM Temperatu re Post-Dialysis 98.4 degF Standing Heart Rate Pre-Dialysis 66 BPM Temperature Pre-Dialysis 98.1 degF May 03, 2024 In-Center Hemodialysis Treatment 3608-95-71P19:33:55.000Z 0423-56-59Q34:33:30.000Z BP Sitting (Pre-Dialysis) 142/63 mmHg BP Sitting (Post-Dialysis) 131/58 mmHg Concurrent Access: falseAV Graft Upper Arm (Left) Arterial BP Standing (Pre-Dialysis) 138/73 mmHg BP Standing (P ost-Dialysis) 113/56 mmHg Sitting Heart Rate Pre-Dialysis 61 BPM Sitting Heart Rate Post-Dialysis 63 BPM Standing Heart Rate Pre-Dialysis 62 BPM Standing Heart Rate Post-Dialysis 61 BPM Temperature Pre-Dialysis 98.4 degF Temperature Post -Dialysis 98.4 degF April 30, 2024 In-Center Hemodialysis Treatment 2886-35-16H69:09:00.000Z 1305-16-46X13:21:26.000Z BP Sitting (Pre-Dialysis) 147/64 mmHg BP Sitting (Post-Dialysis) 125/69 mmHg Concurrent Access: falseAV Graft Upper Arm (Left) Arterial Sitting Heart Rate Pre-Dialysis 62 BPM BP Standing (Post-Dialysis) 125/63 mmHg Temperature Pre-Dialysis 98.2 degF Sitting Heart Ra te Post-Dialysis 58 BPM Standing Heart Rate Post-Cate lysis 58 BPM Temperature Post-Dialysis 99 .2 degF April 28, 2024 In-Center Hemodialysis Treatment 8454-67-20V20:57:00.000Z 2660-30-82C98:02:42.000Z BP Sitting (Pre-Dialysis) 144/70 mmHg BP Sitting (Post-Dialysis) 142/69 mmHg Concurrent Access: falseAV Graft Upper Arm (Left) Arterial BP Standing (Pre-Dialysis) 135/72 mmHg BP Standing (P ost-Dialysis) 130/64 mmHg Sitting Heart Rate Pre-Dialysis 67 BPM Sitting Heart Rate Post-Dialysis 58 BPM Standing Heart Rate Pre-Dialysis 70 BPM Standing Heart Rate Post-Dialysis 60 BPM Temperature Pre-Dialysis 98.7 degF Temperature Post -Dialysis 98.2 degF April 25, 2024 In-Center Hemodialysis Treatment 3445-00-50B53:01:00.000Z 4396-50-33G02:37:56.000Z BP Sitting (Pre-Dialysis) 127/63 mmHg BP Sitting (Post-Dialysis) 115/58 mmHg Concurrent Access: falseAV Graft Upper Arm (Left) Arterial BP Standing (Pre-Dialysis) 114/65 mmHg BP Standing (P ost-Dialysis) 124/57 mmHg Sitting Heart Rate Pre-Dialysis 68 BPM Sitting Heart Rate Post-Dialysis 61 BPM Standing Heart Rate Pre-Dialysis 70 BPM Standing Heart Rate Post-Dialysis 72 BPM Temperature Pre-Dialysis 97.9 degF Temperature Post -Dialysis 98.2 degF April 23, 2024 In-Center Hemodialysis Treatment 7250-36-81K47:06:00.000Z 6285-51-61Y35:11:46.000Z BP Sitting (Pre-Dialysis) 132/69 mmHg BP Sitting (Post-Dialysis) 124/62 mmHg Concurrent Access: falseAV Graft Upper Arm (Left) Arterial BP Standing (Pre-Dialysis) 137/69 mmHg Sitti ng Heart Rate Post-Dialysis 61 BPM Sitting Heart Rate Pre-Dialysis 60 BPM Temperatu re Post-Dialysis 98.5 degF Standing Heart Rate Pre-Dialysis 60 BPM Temperature Pre-Dialysis 98.6 degF April 21, 2024 In-Center Hemodialysis Treatment 8034-01-47N91:59:00.000Z 2473-17-59Z43:04:34.000Z BP Sitting (Pre-Dialysis) 128/68 mmHg BP Sitting (Post-Dialysis) 110/56 mmHg Concurrent Access: falseAV Graft Upper Arm (Left) Arterial BP Standing (Pre-Dialysis) 128/75 mmHg BP Standing (P ost-Dialysis) 101/62 mmHg Sitting Heart Rate Pre-Dialysis 60 BPM Sitting Heart Rate Post-Dialysis 58 BPM Standing Heart Rate Pre-Dialysis 63 BPM Standing Heart Rate Post-Dialysis 59 BPM Temperature Pre-Dialysis 98.1 degF Temperature Post -Dialysis 98.4 degF April 18, 2024 In-Center Hemodialysis Treatment [id number]:59:00.000Z 0928-45-11P14:03:13.000Z BP Sitting (Pre-Dialysis) 146/70 mmHg BP Sitting (Post-Dialysis) 135/67 mmHg Concurrent Access: falseAV Graft Upper Arm (Left) Arterial BP Standing (Pre-Dialysis) 142/69 mmHg BP Standing (P ost-Dialysis) 132/67 mmHg Sitting Heart Rate Pre-Dialysis 61 BPM Sitting Heart Rate Post-Dialysis 61 BPM Standing Heart Rate Pre-Dialysis 64 BPM Standing Heart Rate Post-Dialysis 62 BPM Temperature Pre-Dialysis 98 degF Temperature Post -Dialysis 98.1 degF April 16, 2024 In-Center Hemodialysis Treatment 2225-65-92P67:07:53.000Z 8371-86-76D09:17:28.000Z BP Sitting (Pre-Dialysis) 142/71 mmHg BP Sitting (Post-Dialysis) 125/62 mmHg Concurrent Access: falseAV Graft Upper Arm (Left) Arterial BP Standing (Pre-Dialysis) 143/63 mmHg BP Standing (P ost-Dialysis) 125/62 mmHg Sitting Heart Rate Pre-Dialysis 61 BPM Sitting Heart Rate Post-Dialysis 61 BPM Standing Heart Rate Pre-Dialysis 63 BPM Standing Heart Rate Post-Dialysis 64 BPM Temperature Pre-Dialysis 98.3 degF Temperature Post -Dialysis 98.7 degF April 14, 2024 In-Center Hemodialysis Treatment 4355-00-88V20:55:00.000Z 7180-09-34I69:03:48.000Z BP Sitting (Pre-Dialysis) 141/71 mmHg BP Sitting (Post-Dialysis) 110/60 mmHg Concurrent Access: falseAV Graft Upper Arm (Left) Arterial BP Standing (Pre-Dialysis) 138/68 mmHg BP Standing (P ost-Dialysis) 116/59 mmHg Sitting Heart Rate Pre-Dialysis 59 BPM Sitting Heart Rate Post-Dialysis 62 BPM Standing Heart Rate Pre-Dialysis 60 BPM Standing Heart Rate Post-Dialysis 62 BPM Temperature Pre-Dialysis 98.2 degF Temperature Post -Dialysis 98.7 degF April 11, 2024 In-Center Hemodialysis Treatment 5457-77-13F81:00:21.000Z 2822-60-27X67:29:56.000Z BP Sitting (Pre-Dialysis) 134/67 mmHg BP Sitting (Post-Dialysis) 115/60 mmHg Concurrent Access: falseAV Graft Upper Arm (Left) Arterial BP Standing (Pre-Dialysis) 132/71 mmHg Sitti ng Heart Rate Post-Dialysis 60 BPM Sitting Heart Rate Pre-Dialysis 66 BPM Temperatu re Post-Dialysis 98.1 degF Standing Heart Rate Pre-Dialysis 68 BPM Temperature Pre-Dialysis 98.2 degF April 09, 2024 In-Center Hemodialysis Treatment 6873-23-91Z98:01:00.000Z 4500-16-46O12:13:34.000Z BP Sitting (Pre-Dialysis) 127/70 mmHg BP Sitting (Post-Dialysis) 128/59 mmHg Concurrent Access: falseAV Graft Upper Arm (Left) Arterial BP Standing (Pre-Dialysis) 127/62 mmHg BP Standing (P ost-Dialysis) 123/59 mmHg Sitting Heart Rate Pre-Dialysis 62 BPM Sitting Heart Rate Post-Dialysis 59 BPM Standing Heart Rate Pre-Dialysis 61 BPM Standing Heart Rate Post-Dialysis 63 BPM Temperature Pre-Dialysis 98.1 degF Temperature Post -Dialysis 98.3 degF April 07, 2024 In-Center Hemodialysis Treatment 2721-80-71C20:04:00.000Z 9396-96-11D25:09:59.000Z BP Sitting (Pre-Dialysis) 123/69 mmHg BP Sitting (Post-Dialysis) 110/62 mmHg Concurrent Access: falseAV Graft Upper Arm (Left) Arterial BP Standing (Pre-Dialysis) 115/67 mmHg BP Standing (P ost-Dialysis) 117/54 mmHg Sitting Heart Rate Pre-Dialysis 69 BPM Sitting Heart Rate Post-Dialysis 60 BPM Standing Heart Rate Pre-Dialysis 72 BPM Standing Heart Rate Post-Dialysis 63 BPM Temperature Pre-Dialysis 98.9 degF Temperature Post -Dialysis 98.9 degF April 04, 2024 In-Center Hemodialysis Treatment 2800-36-55X69:59:00.000Z 0918-84-01Q86:18:56.000Z BP Sitting (Pre-Dialysis) 130/70 mmHg BP Sitting (Post-Dialysis) 120/65 mmHg Concurrent Access: falseAV Graft Upper Arm (Left) Arterial BP Standing (Pre-Dialysis) 115/59 mmHg Sitti ng Heart Rate Post-Dialysis 63 BPM Sitting Heart Rate Pre-Dialysis 60 BPM Temperatu re Post-Dialysis 98.6 degF Standing Heart Rate Pre-Dialysis 63 BPM Temperature Pre-Dialysis 98.4 degF April 02, 2024 In-Center Hemodialysis Treatment [id number]:59:00.000Z [id number]:03:34.000Z BP Sitting (Pre-Dialysis) 131/67 mmHg BP Sitting (Post-Dialysis) 128/62 mmHg Concurrent Access: falseAV Graft Upper Arm (Left) Arterial BP Standing (Pre-Dialysis) 126/62 mmHg BP Standing (P ost-Dialysis) 139/63 mmHg Sitting Heart Rate Pre-Dialysis 61 BPM Sitting Heart Rate Post-Dialysis 68 BPM Standing Heart Rate Pre-Dialysis 63 BPM Standing Heart Rate Post-Dialysis 65 BPM Temperature Pre-Dialysis 98.3 degF Temperature Post -Dialysis 98.3 degF March 31, 2024 In-Center Hemodialysis Treatment [id number]:01:00.000Z [id number]:05:11.000Z BP Sitting (Pre-Dialysis) 114/61 mmHg BP Sitting (Post-Dialysis) 121/63 mmHg Concurrent Access: falseAV Graft Upper Arm (Left) Arterial BP Standing (Pre-Dialysis) 116/44 mmHg BP Standing (P ost-Dialysis) 109/57 mmHg Sitting Heart Rate Pre-Dialysis 60 BPM Sitting Heart Rate Post-Dialysis 60 BPM Standing Heart Rate Pre-Dialysis 62 BPM Standing Heart Rate Post-Dialysis 62 BPM Temperature Pre-Dialysis 98.4 degF Temperature Post -Dialysis 98.7 degF March 28, 2024 In-Center Hemodialysis Treatment [id number]:58:00.000Z [id number]:02:46.000Z BP Sitting (Pre-Dialysis) 142/72 mmHg BP Sitting (Post-Dialysis) 124/64 mmHg Concurrent Access: falseAV Graft Upper Arm (Left) Arterial BP Standing (Pre-Dialysis) 137/68 mmHg BP Standing (P ost-Dialysis) 120/69 mmHg Sitting Heart Rate Pre-Dialysis 62 BPM Sitting Heart Rate Post-Dialysis 67 BPM Standing Heart Rate Pre-Dialysis 65 BPM Standing Heart Rate Post-Dialysis 73 BPM Temperature Pre-Dialysis 98 degF Temperature Post -Dialysis 98 degF March 26, 2024 In-Center Hemodialysis Treatment [id number]:20:33.000Z [id number]:30:33.000Z BP Sitting (Pre-Dialysis) 133/70 mmHg BP Sitting (Post-Dialysis) 123/66 mmHg Concurrent Access: falseAV Graft Upper Arm (Left) Arterial BP Standing (Pre-Dialysis) 129/71 mmHg BP Standing (P ost-Dialysis) 123/59 mmHg Sitting Heart Rate Pre-Dialysis 72 BPM Sitting Heart Rate Post-Dialysis 62 BPM Standing Heart Rate Pre-Dialysis 72 BPM Standing Heart Rate Post-Dialysis 60 BPM Temperature Pre-Dialysis 98.3 degF Temperature Post -Dialysis 97.8 degF March 24, 2024 In-Center Hemodialysis Treatment [id number]:16:53.000Z [id number]:35:38.000Z BP Sitting (Pre-Dialysis) 125/58 mmHg BP Sitting (Post-Dialysis) 124/70 mmHg Concurrent Access: falseAV Graft Upper Arm (Left) Arterial BP Standing (Pre-Dialysis) 124/63 mmHg BP Standing (P ost-Dialysis) 115/63 mmHg Sitting Heart Rate Pre-Dialysis 61 BPM Sitting Heart Rate Post-Dialysis 63 BPM Standing Heart Rate Pre-Dialysis 64 BPM Standing Heart Rate Post-Dialysis 63 BPM Temperature Pre-Dialysis 98.5 degF Temperature Post -Dialysis 98 degF March 21, 2024 In-Center Hemodialysis Treatment [id number]:54:00.000Z [id number]:57:31.000Z BP Sitting (Pre-Dialysis) 125/61 mmHg BP Sitting (Post-Dialysis) 114/66 mmHg Concurrent Access: falseAV Graft Upper Arm (Left) Arterial BP Standing (Pre-Dialysis) 121/62 mmHg Sitti ng Heart Rate Post-Dialysis 63 BPM Sitting Heart Rate Pre-Dialysis 63 BPM Temperatu re Post-Dialysis 98.6 degF Standing Heart Rate Pre-Dialysis 65 BPM Temperature Pre-Dialysis 98.2 degF March 19, 2024 In-Center Hemodialysis Treatment [id number]:03:00.000Z 2857-74-98P55:07:27.000Z BP Sitting (Pre-Dialysis) 136/63 mmHg BP Sitting (Post-Dialysis) 119/60 mmHg Concurrent Access: falseAV Graft Upper Arm (Left) Arterial BP Standing (Pre-Dialysis) 133/64 mmHg BP Standing (P ost-Dialysis) 126/65 mmHg Sitting Heart Rate Pre-Dialysis 60 BPM Sitting Heart Rate Post-Dialysis 58 BPM Standing Heart Rate Pre-Dialysis 66 BPM Standing Heart Rate Post-Dialysis 59 BPM Temperature Pre-Dialysis 98.5 degF Temperature Post -Dialysis 98.5 degF March 17, 2024 In-Center Hemodialysis Treatment 4740-14-54W00:02:00.000Z [id number]:18:53.000Z BP Sitting (Pre-Dialysis) 111/61 mmHg BP Sitting (Post-Dialysis) 113/59 mmHg Concurrent Access: falseAV Graft Upper Arm (Left) Arterial BP Standing (Pre-Dialysis) 112/62 mmHg Sitti ng Heart Rate Post-Dialysis 59 BPM Sitting Heart Rate Pre-Dialysis 60 BPM Temperatu re Post-Dialysis 98.3 degF Standing Heart Rate Pre-Dialysis 61 BPM Temperature Pre-Dialysis 98.4 degF March 14, 2024 In-Center Hemodialysis Treatment [id number]:52:54.000Z 9901-29-44H54:52:29.000Z BP Sitting (Pre-Dialysis) 159/73 mmHg BP Sitting (Post-Dialysis) 129/69 mmHg Concurrent Access: falseAV Graft Upper Arm (Left) Arterial BP Standing (Pre-Dialysis) 155/72 mmHg BP Standing (P ost-Dialysis) 138/70 mmHg Sitting Heart Rate Pre-Dialysis 64 BPM Sitting Heart Rate Post-Dialysis 63 BPM Standing Heart Rate Pre-Dialysis 65 BPM Standing Heart Rate Post-Dialysis 65 BPM Temperature Pre-Dialysis 98.2 degF Temperature Post -Dialysis 98 degF March 12, 2024 In-Center Hemodialysis Treatment [id number]:06:00.000Z 7701-31-98E05:09:08.000Z BP Sitting (Pre-Dialysis) 131/62 mmHg BP Sitting (Post-Dialysis) 126/65 mmHg Concurrent Access: falseAV Graft Upper Arm (Left) Arterial BP Standing (Pre-Dialysis) 120/61 mmHg BP Standing (P ost-Dialysis) 123/63 mmHg Sitting Heart Rate Pre-Dialysis 64 BPM Sitting Heart Rate Post-Dialysis 60 BPM Standing Heart Rate Pre-Dialysis 64 BPM Standing Heart Rate Post-Dialysis 59 BPM Temperature Pre-Dialysis 98.1 degF Temperature Post -Dialysis 98.1 degF March 07, 2024 In-Center Hemodialysis Treatment [id number]:54:00.000Z 9569-61-46O11:28:24.000Z BP Sitting (Pre-Dialysis) 155/75 mmHg BP Sitting (Post-Dialysis) 108/61 mmHg Concurrent Access: falseAV Graft Upper Arm (Left) Arterial BP Standing (Pre-Dialysis) 131/69 mmHg Sitti ng Heart Rate Post-Dialysis 60 BPM Sitting Heart Rate Pre-Dialysis 68 BPM Temperatu re Post-Dialysis 98.5 degF Standing Heart Rate Pre-Dialysis 69 BPM Temperature Pre-Dialysis 98.4 degF March 05, 2024 In-Center Hemodialysis Treatment [id number]:15:00.000Z 5064-67-60S52:20:00.000Z BP Sitting (Pre-Dialysis) 150/73 mmHg BP Sitting (Post-Dialysis) 122/63 mmHg Concurrent Access: falseAV Graft Upper Arm (Left) Arterial BP Standing (Pre-Dialysis) 128/70 mmHg BP Standing (P ost-Dialysis) 120/61 mmHg Sitting Heart Rate Pre-Dialysis 70 BPM Sitting Heart Rate Post-Dialysis 60 BPM Standing Heart Rate Pre-Dialysis 70 BPM Standing Heart Rate Post-Dialysis 64 BPM Temperature Pre-Dialysis 97.9 degF Temperature Post -Dialysis 98.4 degF March 03, 2024 In-Center Hemodialysis Treatment 5033-23-16U05:55:00.000Z [id number]:59:34.000Z BP Sitting (Pre-Dialysis) 139/68 mmHg BP Sitting (Post-Dialysis) 122/55 mmHg Concurrent Access: falseAV Graft Upper Arm (Left) Arterial BP Standing (Pre-Dialysis) 135/71 mmHg BP Standing (P ost-Dialysis) 116/53 mmHg Sitting Heart Rate Pre-Dialysis 65 BPM Sitting Heart Rate Post-Dialysis 58 BPM Standing Heart Rate Pre-Dialysis 69 BPM Standing Heart Rate Post-Dialysis 64 BPM Temperature Pre-Dialysis 98.4 degF Temperature Post -Dialysis 98.2 degF February 29, 2024 In-Center Hemodialysis Treatment [id number]:58:01.000Z 7686-59-36B31:27:36.000Z BP Sitting (Pre-Dialysis) 148/76 mmHg BP Sitting (Post-Dialysis) 116/57 mmHg Concurrent Access: falseAV Graft Upper Arm (Left) Arterial BP Standing (Pre-Dialysis) 148/74 mmHg BP Standing (P ost-Dialysis) 111/59 mmHg Sitting Heart Rate Pre-Dialysis 67 BPM Sitting Heart Rate Post-Dialysis 64 BPM Standing Heart Rate Pre-Dialysis 69 BPM Standing Heart Rate Post-Dialysis 78 BPM Temperature Pre-Dialysis 98.1 degF Temperature Post -Dialysis 98.2 degF February 27, 2024 In-Center Hemodialysis Treatment 7933-43-07R55:55:00.000Z 9065-63-71X65:15:47.000Z BP Sitting (Pre-Dialysis) 120/59 mmHg BP Sitting (Post-Dialysis) 124/61 mmHg Concurrent Access: falseAV Graft Upper Arm (Left) Arterial BP Standing (Pre-Dialysis) 116/60 mmHg BP Standing (P ost-Dialysis) 111/59 mmHg Sitting Heart Rate Pre-Dialysis 61 BPM Sitting Heart Rate Post-Dialysis 58 BPM Standing Heart Rate Pre-Dialysis 62 BPM Standing Heart Rate Post-Dialysis 62 BPM Temperature Pre-Dialysis 98.4 degF February 25, 2024 In-Center Hemodialysis Treatment [id number]:00:00.000Z 4325-54-75T91:07:02.000Z BP Sitting (Pre-Dialysis) 105/60 mmHg BP Sitting (Post-Dialysis) 115/56 mmHg Concurrent Access: falseAV Graft Upper Arm (Left) Arterial BP Standing (Pre-Dialysis) 115/58 mmHg Sitti ng Heart Rate Post-Dialysis 60 BPM Sitting Heart Rate Pre-Dialysis 66 BPM Temperatu re Post-Dialysis 98.3 degF Standing Heart Rate Pre-Dialysis 62 BPM Temperature Pre-Dialysis 98 degF February 22, 2024 In-Center Hemodialysis Treatment 7527-53-41H08:09:00.000Z 0582-74-49N43:08:45.000Z BP Sitting (Pre-Dialysis) 133/61 mmHg BP Sitting (Post-Dialysis) 125/66 mmHg Concurrent Access: falseAV Graft Upper Arm (Left) Arterial BP Standing (Pre-Dialysis) 129/67 mmHg BP Standing (P ost-Dialysis) 108/54 mmHg Sitting Heart Rate Pre-Dialysis 61 BPM Sitting Heart Rate Post-Dialysis 67 BPM Standing Heart Rate Pre-Dialysis 62 BPM Standing Heart Rate Post-Dialysis 65 BPM Temperature Pre-Dialysis 98.7 degF Temperature Post -Dialysis 98.9 degF February 18, 2024 In-Center Hemodialysis Treatment [id number]:55:00.000Z 0885-05-24K91:29:31.000Z BP Sitting (Pre-Dialysis) 123/63 mmHg BP Sitting (Post-Dialysis) 107/50 mmHg Concurrent Access: falseAV Graft Upper Arm (Left) Arterial BP Standing (Pre-Dialysis) 119/57 mmHg BP Standing (P ost-Dialysis) 104/61 mmHg Sitting Heart Rate Pre-Dialysis 59 BPM Sitting Heart Rate Post-Dialysis 59 BPM Standing Heart Rate Pre-Dialysis 60 BPM Standing Heart Rate Post-Dialysis 61 BPM Temperature Pre-Dialysis 98.1 degF Temperature Post -Dialysis 98.3 degF February 15, 2024 In-[place] Hemod[facility] Treatment [id number]:54:00.000Z 4298-41-57V41:26:37.000Z BP Sitting (Pre-Dialysis) 159/72 mmHg BP Sitting (Post-Dialysis) 128/61 mmHg Concurrent Access: falseAV Graft Upper Arm (Left) Arterial BP Standing (Pre-Dialysis) 159/78 mmHg BP Standing (P ost-Dialysis) 119/58 mmHg Sitting Heart Rate Pre-Dialysis 64 BPM Sitting Heart Rate Post-Dialysis 61 BPM Standing Heart Rate Pre-Dialysis 69 BPM Standing Heart Rate Post-Dialysis 63 BPM Temperature Pre-Dialysis 98.2 degF Temperature Post -Dialysis 98.2 degF February 13, 2024 In-Center Hemodialysis Treatment [id number]:03:00.000Z 1788-46-64N53:06:08.000Z BP Sitting (Pre-Dialysis) 137/66 mmHg BP Sitting (Post-Dialysis) 118/66 mmHg Concurrent Access: falseAV Graft Upper Arm (Left) Arterial BP Standing (Pre-Dialysis) 124/57 mmHg BP Standing (P ost-Dialysis) 123/66 mmHg Sitting Heart Rate Pre-Dialysis 58 BPM Sitting Heart Rate Post-Dialysis 75 BPM Standing Heart Rate Pre-Dialysis 61 BPM Standing Heart Rate Post-Dialysis 76 BPM Temperature Pre-Dialysis 97.8 degF Temperature Post -Dialysis 98 degF February 11, 2024 In-Center Hemodialysis Treatment [id number]:55:00.000Z [id number]:57:36.000Z BP Sitting (Pre-Dialysis) 132/64 mmHg BP Sitting (Post-Dialysis) 129/63 mmHg Concurrent Access: falseAV Graft Upper Arm (Left) Arterial BP Standing (Pre-Dialysis) 139/73 mmHg BP Standing (P ost-Dialysis) 126/68 mmHg Sitting Heart Rate Pre-Dialysis 60 BPM Sitting Heart Rate Post-Dialysis 62 BPM Standing Heart Rate Pre-Dialysis 64 BPM Standing Heart Rate Post-Dialysis 64 BPM Temperature Pre-Dialysis 98.4 degF Temperature Post -Dialysis 97.3 degF February 08, 2024 In-Center Hemodialysis Treatment 2539-16-12J81:01:07.000Z [id number]:31:07.000Z BP Sitting (Pre-Dialysis) 148/68 mmHg BP Sitting (Post-Dialysis) 121/59 mmHg Concurrent Access: falseAV Graft Upper Arm (Left) Arterial BP Standing (Pre-Dialysis) 142/63 mmHg Sitting Heart Rate Post-Dialysis 60 BPM Sitting Heart Rate Pre-Dialysis 58 BPM Temperatu re Post-Dialysis 98 degF Standing Heart Rate Pre-Dialysis 60 BPM Temperature Pre-Dialysis 98.2 degF February 06, 2024 In-Center Hemodialysis Treatment [id number]:59:16.000Z 4683-89-50Z75:14:16.000Z BP Sitting (Pre-Dialysis) 136/65 mmHg BP Sitting (Post-Dialysis) 119/61 mmHg Concurrent Access: falseAV Graft Upper Arm (Left) Arterial BP Standing (Pre-Dialysis) 139/64 mmHg BP Standing (P ost-Dialysis) 113/65 mmHg Sitting Heart Rate Pre-Dialysis 60 BPM Sitting Heart Rate Post-Dialysis 62 BPM Standing Heart Rate Pre-Dialysis 61 BPM Standing Heart Rate Post-Dialysis 64 BPM Temperature Pre-Dialysis 98 degF Temperature Post -Dialysis 98.3 degF February 04, 2024 In-Center Hemodialysis Treatment [id number]:06:00.000Z 7269-83-20R02:08:08.000Z BP Sitting (Pre-Dialysis) 123/64 mmHg BP Sitting (Post-Dialysis) 135/70 mmHg Concurrent Access: falseAV Graft Upper Arm (Left) Arterial BP Standing (Pre-Dialysis) 123/59 mmHg BP Standing (P ost-Dialysis) 121/71 mmHg Sitting Heart Rate Pre-Dialysis 59 BPM Sitting Heart Rate Post-Dialysis 52 BPM Standing Heart Rate Pre-Dialysis 62 BPM Standing Heart Rate Post-Dialysis 63 BPM Temperature Pre-Dialysis 98.4 degF Temperature Post -Dialysis 98.2 degF February 01, 2024 In-Center Hemodialysis Treatment 2935-10-14R72:04:00.000Z [id number]:07:28.000Z BP Sitting (Pre-Dialysis) 108/55 mmHg BP Sitting (Post-Dialysis) 113/55 mmHg Concurrent Access: falseAV Graft Upper Arm (Left) Arterial BP Standing (Pre-Dialysis) 100/52 mmHg Sitti ng Heart Rate Post-Dialysis 59 BPM Sitting Heart Rate Pre-Dialysis 58 BPM Temperatu re Post-Dialysis 98.7 degF Standing Heart Rate Pre-Dialysis 72 BPM Temperature Pre-Dialysis 98.1 degF January 30, 2024 In-Center Hemodialysis Treatment [id number]:02:00.000Z 0636-25-25J55:18:43.000Z BP Sitting (Pre-Dialysis) 118/61 mmHg BP Sitting (Post-Dialysis) 113/61 mmHg Concurrent Access: falseAV Graft Upper Arm (Left) Arterial BP Standing (Pre-Dialysis) 124/64 mmHg BP Standing (P ost-Dialysis) 113/61 mmHg Sitting Heart Rate Pre-Dialysis 59 BPM Sitting Heart Rate Post-Dialysis 62 BPM Standing Heart Rate Pre-Dialysis 60 BPM Standing Heart Rate Post-Dialysis 61 BPM Temperature Pre-Dialysis 98.2 degF Temperature Post -Dialysis 97.3 degF January 28, 2024 In-Center Hemodialysis Treatment [id number]:59:00.000Z 8979-30-37F79:23:15.000Z BP Sitting (Pre-Dialysis) 113/51 mmHg BP Sitting (Post-Dialysis) 11/59 mmHg Concurrent Access: falseAV Graft Upper Arm (Left) Arterial BP Standing (Pre-Dialysis) 103/55 mmHg BP Standing (P ost-Dialysis) 112/55 mmHg Sitting Heart Rate Pre-Dialysis 58 BPM Sitting Heart Rate Post-Dialysis 61 BPM Standing Heart Rate Pre-Dialysis 59 BPM Standing Heart Rate Post-Dialysis 61 BPM Temperature Pre-Dialysis 98.3 degF Temperature Post -Dialysis 98.5 degF January 25, 2024 In-Center Hemodialysis Treatment 4176-24-22N04:00:00.000Z 8509-57-23N45:03:10.000Z BP Sitting (Pre-Dialysis) 114/59 mmHg BP Sitting (Post-Dialysis) 111/60 mmHg Concurrent Access: falseAV Graft Upper Arm (Left) Arterial BP Standing (Pre-Dialysis) 112/59 mmHg BP Standing (P ost-Dialysis) 113/67 mmHg Sitting Heart Rate Pre-Dialysis 57 BPM Sitting Heart Rate Post-Dialysis 59 BPM Standing Heart Rate Pre-Dialysis 60 BPM Standing Heart Rate Post-Dialysis 60 BPM Temperature Pre-Dialysis 98.2 degF Temperature Post -Dialysis 98.2 degF January 23, 2024 In-Center Hemodialysis Treatment [id number]:55:00.000Z 2855-35-36Y63:42:37.000Z BP Sitting (Pre-Dialysis) 122/60 mmHg BP Sitting (Post-Dialysis) 117/60 mmHg Concurrent Access: falseAV Graft Upper Arm (Left) Arterial BP Standing (Pre-Dialysis) 120/68 mmHg BP Standing (P ost-Dialysis) 121/62 mmHg Sitting Heart Rate Pre-Dialysis 60 BPM Sitting Heart Rate Post-Dialysis 61 BPM Standing Heart Rate Pre-Dialysis 62 BPM Standing Heart Rate Post-Dialysis 61 BPM Temperature Pre-Dialysis 98.7 degF Temperature Post -Dialysis 98.7 degF January 21, 2024 In-Center Hemodialysis Treatment [id number]:57:00.000Z 1655-80-89L38:54:50.000Z BP Sitting (Pre-Dialysis) 117/54 mmHg BP Sitting (Post-Dialysis) 118/63 mmHg Concurrent Access: falseAV Graft Upper Arm (Left) Arterial BP Standing (Pre-Dialysis) 119/48 mmHg BP Standing (P ost-Dialysis) 108/58 mmHg Sitting Heart Rate Pre-Dialysis 62 BPM Sitting Heart Rate Post-Dialysis 69 BPM Standing Heart Rate Pre-Dialysis 64 BPM Standing Heart Rate Post-Dialysis 61 BPM Temperature Pre-Dialysis 98.3 degF Temperature Post -Dialysis 98.4 degF January 18, 2024 In-Center Hemodialysis Treatment [id number]:49:00.000Z 2023-97-25X78:58:22.000Z BP Sitting (Pre-Dialysis) 137/66 mmHg BP Sitting (Post-Dialysis) 111/54 mmHg Concurrent Access: falseAV Graft Upper Arm (Left) Arterial BP Standing (Pre-Dialysis) 130/63 mmHg BP Standing (P ost-Dialysis) 117/56 mmHg Sitting Heart Rate Pre-Dialysis 59 BPM Sitting Heart Rate Post-Dialysis 58 BPM Standing Heart Rate Pre-Dialysis 61 BPM Standing Heart Rate Post-Dialysis 59 BPM Temperature Pre-Dialysis 98.1 degF Temperature Post -Dialysis 97.6 degF January 16, 2024 In-Center Hemodialysis Treatment [id number]:58:18.000Z 5022-15-01B91:58:18.000Z BP Sitting (Pre-Dialysis) 136/73 mmHg BP Sitting (Post-Dialysis) 118/58 mmHg Concurrent Access: falseAV Graft Upper Arm (Left) Arterial BP Standing (Pre-Dialysis) 139/77 mmHg BP Standing (P ost-Dialysis) 114/67 mmHg Sitting Heart Rate Pre-Dialysis 65 BPM Sitting Heart Rate Post-Dialysis 65 BPM Standing Heart Rate Pre-Dialysis 65 BPM Standing Heart Rate Post-Dialysis 64 BPM Temperature Pre-Dialysis 98.2 degF Temperature Post -Dialysis 98.2 degF January 14, 2024 In-Center Hemodialysis Treatment [id number]:57:00.000Z [id number]:59:43.000Z BP Sitting (Pre-Dialysis) 138/65 mmHg BP Sitting (Post-Dialysis) 138/70 mmHg Concurrent Access: falseAV Graft Upper Arm (Left) Arterial BP Standing (Pre-Dialysis) 152/74 mmHg BP Standing (P ost-Dialysis) 126/60 mmHg Sitting Heart Rate Pre-Dialysis 63 BPM Sitting Heart Rate Post-Dialysis 58 BPM Standing Heart Rate Pre-Dialysis 64 BPM Standing Heart Rate Post-Dialysis 66 BPM Temperature Pre-Dialysis 98.2 degF Temperature Post -Dialysis 98.4 degF January 11, 2024 In-Center Hemodialysis Treatment 9817-14-01V44:56:00.000Z 6623-19-31U23:47:50.000Z BP Sitting (Pre-Dialysis) 124/60 mmHg BP Sitting (Post-Dialysis) 114/64 mmHg Concurrent Access: falseAV Graft Upper Arm (Left) Arterial BP Standing (Pre-Dialysis) 110/59 mmHg BP Standing (P ost-Dialysis) 123/62 mmHg Sitting Heart Rate Pre-Dialysis 64 BPM Sitting Heart Rate Post-Dialysis 65 BPM Standing Heart Rate Pre-Dialysis 65 BPM Standing Heart Rate Post-Dialysis 67 BPM Temperature Pre-Dialysis 97.6 degF Temperature Post -Dialysis 98.6 degF January 09, 2024 In-Center Hemodialysis Treatment [id number]:02:39.000Z 7569-35-46D42:01:24.000Z BP Sitting (Pre-Dialysis) 145/69 mmHg BP Sitting (Post-Dialysis) 129/64 mmHg Concurrent Access: falseAV Graft Upper Arm (Left) Arterial BP Standing (Pre-Dialysis) 138/66 mmHg Sitti ng Heart Rate Post-Dialysis 61 BPM Sitting Heart Rate Pre-Dialysis 60 BPM Temperatu re Post-Dialysis 98.3 degF Standing Heart Rate Pre-Dialysis 62 BPM Temperature Pre-Dialysis 98.4 degF January 07, 2024 In-Center Hemodialysis Treatment 3010-26-00L02:04:00.000Z [id number]:06:00.000Z BP Sitting (Pre-Dialysis) 137/52 mmHg BP Sitting (Post-Dialysis) 124/61 mmHg Concurrent Access: falseAV Graft Upper Arm (Left) Arterial BP Standing (Pre-Dialysis) 120/62 mmHg BP Standing (P ost-Dialysis) 123/62 mmHg Sitting Heart Rate Pre-Dialysis 72 BPM Sitting Heart Rate Post-Dialysis 64 BPM Standing Heart Rate Pre-Dialysis 57 BPM Standing Heart Rate Post-Dialysis 63 BPM Temperature Pre-Dialysis 97.9 degF Temperature Post -Dialysis 98 degF January 04, 2024 In-Center Hemodialysis Treatment [id number]:01:00.000Z 1625-05-10D59:02:22.000Z BP Sitting (Pre-Dialysis) 111/55 mmHg BP Sitting (Post-Dialysis) 116/53 mmHg Concurrent Access: falseAV Graft Upper Arm (Left) Arterial BP Standing (Pre-Dialysis) 111/63 mmHg BP Standing (P ost-Dialysis) 108/53 mmHg Sitting Heart Rate Pre-Dialysis 60 BPM Sitting Heart Rate Post-Dialysis 60 BPM Standing Heart Rate Pre-Dialysis 60 BPM Standing Heart Rate Post-Dialysis 61 BPM Temperature Pre-Dialysis 98.2 degF Temperature Post -Dialysis 97.6 degF January 02, 2024 In-Center Hemodialysis Treatment [id number]:58:00.000Z 3750-99-04W84:24:00.000Z BP Sitting (Pre-Dialysis) 109/54 mmHg BP Sitting (Post-Dialysis) 117/58 mmHg Concurrent Access: falseAV Graft Upper Arm (Left) Arterial BP Standing (Pre-Dialysis) 117/59 mmHg BP Standing (P ost-Dialysis) 130/55 mmHg Sitting Heart Rate Pre-Dialysis 59 BPM Sitting Heart Rate Post-Dialysis 61 BPM Standing Heart Rate Pre-Dialysis 60 BPM Standing Heart Rate Post-Dialysis 62 BPM Temperature Pre-Dialysis 98.3 degF Temperature Post -Dialysis 98 degF December 31, 2023 In-Center Hemodialysis Treatment [id number]:33:00.000Z 1775-68-39S57:20:00.000Z BP Sitting (Pre-Dialysis) 132/60 mmHg BP Sitting (Post-Dialysis) 135/72 mmHg Concurrent Access: falseAV Graft Upper Arm (Left) Arterial BP Standing (Pre-Dialysis) 137/70 mmHg BP Standing (P ost-Dialysis) 128/66 mmHg Sitting Heart Rate Pre-Dialysis 63 BPM Sitting Heart Rate Post-Dialysis 67 BPM Standing Heart Rate Pre-Dialysis 66 BPM Standing Heart Rate Post-Dialysis 68 BPM Temperature Pre-Dialysis 98.3 degF December 28, 2023 In-Center Hemodialysis Treatment [id number]:59:00.000Z 8124-54-00Y57:46:04.000Z BP Sitting (Pre-Dialysis) 113/65 mmHg BP Sitting (Post-Dialysis) 124/59 mmHg Concurrent Access: falseAV Graft Upper Arm (Left) Arterial BP Standing (Pre-Dialysis) 135/66 mmHg BP Standing (P ost-Dialysis) 131/63 mmHg Sitting Heart Rate Pre-Dialysis 76 BPM Sitting Heart Rate Post-Dialysis 66 BPM Standing Heart Rate Pre-Dialysis 76 BPM Standing Heart Rate Post-Dialysis 64 BPM Temperature Pre-Dialysis 98.3 degF Temperature Post -Dialysis 98.6 degF December 26, 2023 In-Center Hemodialysis Treatment [id number]:03:00.000Z 6643-09-60O82:05:57.000Z BP Sitting (Pre-Dialysis) 125/66 mmHg BP Sitting (Post-Dialysis) 124/59 mmHg Concurrent Access: falseAV Graft Upper Arm (Left) Arterial BP Standing (Pre-Dialysis) 92/67 mmHg Sitting Heart Rate Post-Dialysis 70 BPM Sitting Heart Rate Pre-Dialysis 63 BPM Temperatu re Post-Dialysis 98 degF Standing Heart Rate Pre-Dialysis 54 BPM Temperature Pre-Dialysis 98 degF December 24, 2023 In-Center Hemodialysis Treatment [id number]:00:51.000Z 1400-51-79B26:04:11.000Z BP Sitting (Pre-Dialysis) 123/64 mmHg BP Sitting (Post-Dialysis) 124/59 mmHg Concurrent Access: falseAV Graft Upper Arm (Left) Arterial BP Standing (Pre-Dialysis) 129/65 mmHg BP Standing (P ost-Dialysis) 106/60 mmHg Sitting Heart Rate Pre-Dialysis 65 BPM Sitting Heart Rate Post-Dialysis 62 BPM Standing Heart Rate Pre-Dialysis 63 BPM Standing Heart Rate Post-Dialysis 62 BPM Temperature Pre-Dialysis 98.2 degF Temperature Post -Dialysis 97.6 degF December 21, 2023 In-Center Hemodialysis Treatment [id number]:01:00.000Z 2496-15-24V97:47:29.000Z BP Sitting (Pre-Dialysis) 124/60 mmHg BP Sitting (Post-Dialysis) 120/57 mmHg Concurrent Access: falseAV Graft Upper Arm (Left) Arterial BP Standing (Pre-Dialysis) 109/54 mmHg BP Standing (P ost-Dialysis) 115/59 mmHg Sitting Heart Rate Pre-Dialysis 62 BPM Sitting Heart Rate Post-Dialysis 63 BPM Standing Heart Rate Pre-Dialysis 63 BPM Standing Heart Rate Post-Dialysis 63 BPM Temperature Pre-Dialysis 98 degF Temperature Post -Dialysis 98.6 degF December 19, 2023 In-Center Hemodialysis Treatment 5619-20-48I24:59:00.000Z [id number]:02:19.000Z BP Sitting (Pre-Dialysis) 129/65 mmHg BP Sitting (Post-Dialysis) 116/60 mmHg Concurrent Access: falseAV Graft Upper Arm (Left) Arterial BP Standing (Pre-Dialysis) 121/60 mmHg BP Standing (P ost-Dialysis) 122/60 mmHg Sitting Heart Rate Pre-Dialysis 67 BPM Sitting Heart Rate Post-Dialysis 66 BPM Standing Heart Rate Pre-Dialysis 69 BPM Standing Heart Rate Post-Dialysis 69 BPM Temperature Pre-Dialysis 97.6 degF Temperature Post -Dialysis 97.5 degF December 17, 2023 In-Center Hemodialysis Treatment [id number]:01:00.000Z 6481-47-16K45:02:17.000Z BP Sitting (Pre-Dialysis) 124/60 mmHg BP Sitting (Post-Dialysis) 104/53 mmHg Concurrent Access: falseAV Graft Upper Arm (Left) Arterial BP Standing (Pre-Dialysis) 111/58 mmHg Sitti ng Heart Rate Post-Dialysis 62 BPM Sitting Heart Rate Pre-Dialysis 62 BPM Temperatu re Post-Dialysis 98.4 degF Standing Heart Rate Pre-Dialysis 62 BPM Temperature Pre-Dialysis 98.1 degF December 12, 2023 In-Center Hemodialysis Treatment [id number]:52:00.000Z 2794-11-58I96:43:54.000Z BP Sitting (Pre-Dialysis) 129/66 mmHg BP Sitting (Post-Dialysis) 113/56 mmHg Concurrent Access: falseAV Graft Upper Arm (Left) Arterial BP Standing (Pre-Dialysis) 141/64 mmHg BP Standing (P ost-Dialysis) 108/53 mmHg Sitting Heart Rate Pre-Dialysis 60 BPM Sitting Heart Rate Post-Dialysis 60 BPM Standing Heart Rate Pre-Dialysis 61 BPM Standing Heart Rate Post-Dialysis 62 BPM Temperature Pre-Dialysis 98.4 degF Temperature Post -Dialysis 98.7 degF December 10, 2023 In-Center Hemodialysis Treatment [id number]:01:39.000Z [id number]:02:04.000Z BP Sitting (Pre-Dialysis) 97/51 mmHg BP Sitting (Post-Dialysis) 110/56 mmHg Concurrent Access: falseAV Graft Upper Arm (Left) Arterial BP Standing (Pre-Dialysis) 102/50 mmHg Sitti ng Heart Rate Post-Dialysis 57 BPM Sitting Heart Rate Pre-Dialysis 59 BPM Temperatu re Post-Dialysis 98.6 degF Standing Heart Rate Pre-Dialysis 59 BPM Temperature Pre-Dialysis 98.2 degF December 07, 2023 In-Center Hemodialysis Treatment [id number]:01:00.000Z [id number]:03:29.000Z BP Sitting (Pre-Dialysis) 114/58 mmHg BP Sitting (Post-Dialysis) 123/58 mmHg Concurrent Access: falseAV Graft Upper Arm (Left) Arterial BP Standing (Pre-Dialysis) 112/54 mmHg BP Standing (P ost-Dialysis) 128/66 mmHg Sitting Heart Rate Pre-Dialysis 63 BPM Sitting Heart Rate Post-Dialysis 63 BPM Standing Heart Rate Pre-Dialysis 65 BPM Standing Heart Rate Post-Dialysis 68 BPM Temperature Pre-Dialysis 98.1 degF Temperature Post -Dialysis 98.2 degF December 05, 2023 In-Center Hemodialysis Treatment [id number]:02:00.000Z [id number]:04:50.000Z BP Sitting (Pre-Dialysis) 144/73 mmHg BP Sitting (Post-Dialysis) 134/63 mmHg Concurrent Access: falseAV Graft Upper Arm (Left) Arterial BP Standing (Pre-Dialysis) 141/68 mmHg BP Standing (P ost-Dialysis) 116/65 mmHg Sitting Heart Rate Pre-Dialysis 72 BPM Sitting Heart Rate Post-Dialysis 66 BPM Standing Heart Rate Pre-Dialysis 72 BPM Standing Heart Rate Post-Dialysis 66 BPM Temperature Pre-Dialysis 98.2 degF Temperature Post -Dialysis 98 degF December 03, 2023 In-Center Hemodialysis Treatment [id number]:00:00.000Z [id number]:12:59.000Z BP Sitting (Pre-Dialysis) 130/72 mmHg BP Sitting (Post-Dialysis) 120/57 mmHg Concurrent Access: falseAV Graft Upper Arm (Left) Arterial BP Standing (Pre-Dialysis) 151/71 mmHg BP Standing (P ost-Dialysis) 120/69 mmHg Sitting Heart Rate Pre-Dialysis 63 BPM Sitting Heart Rate Post-Dialysis 62 BPM Standing Heart Rate Pre-Dialysis 76 BPM Standing Heart Rate Post-Dialysis 62 BPM Temperature Pre-Dialysis 97.6 degF Temperature Post -Dialysis 97.6 degF November 30, 2023 In-Center Hemodialysis Treatment [id number]:59:07.000Z [id number]:58:42.000Z BP Sitting (Pre-Dialysis) 131/70 mmHg BP Sitting (Post-Dialysis) 132/64 mmHg Concurrent Access: falseAV Graft Upper Arm (Left) Arterial BP Standing (Pre-Dialysis) 136/68 mmHg BP Standing (P ost-Dialysis) 126/72 mmHg Sitting Heart Rate Pre-Dialysis 60 BPM Sitting Heart Rate Post-Dialysis 60 BPM Standing Heart Rate Pre-Dialysis 61 BPM Standing Heart Rate Post-Dialysis 63 BPM Temperature Pre-Dialysis 98.3 degF Temperature Post -Dialysis 98.8 degF November 28, 2023 In-Center Hemodialysis Treatment [id number]:55:00.000Z 9714-30-23W76:56:49.000Z BP Sitting (Pre-Dialysis) 144/68 mmHg BP Sitting (Post-Dialysis) 127/67 mmHg Concurrent Access: falseAV Graft Upper Arm (Left) Arterial BP Standing (Pre-Dialysis) 138/70 mmHg BP Standing (P ost-Dialysis) 128/61 mmHg Sitting Heart Rate Pre-Dialysis 61 BPM Sitting Heart Rate Post-Dialysis 64 BPM Standing Heart Rate Pre-Dialysis 62 BPM Standing Heart Rate Post-Dialysis 64 BPM Temperature Pre-Dialysis 98.4 degF Temperature Post -Dialysis 98.1 degF November 26, 2023 In-Center Hemodialysis Treatment [id number]:02:47.000Z [id number]:03:37.000Z BP Sitting (Pre-Dialysis) 124/63 mmHg BP Sitting (Post-Dialysis) 130/67 mmHg Concurrent Access: falseAV Graft Upper Arm (Left) Arterial BP Standing (Pre-Dialysis) 123/69 mmHg BP Standing (P ost-Dialysis) 133/69 mmHg Sitting Heart Rate Pre-Dialysis 62 BPM Sitting Heart Rate Post-Dialysis 63 BPM Standing Heart Rate Pre-Dialysis 63 BPM Standing Heart Rate Post-Dialysis 68 BPM Temperature Pre-Dialysis 98.2 degF Temperature Post -Dialysis 98.6 degF November 23, 2023 In-Center Hemodialysis Treatment [id number]:58:51.000Z [id number]:58:51.000Z BP Sitting (Pre-Dialysis) 134/65 mmHg BP Sitting (Post-Dialysis) 123/61 mmHg Concurrent Access: falseAV Graft Upper Arm (Left) Arterial BP Standing (Pre-Dialysis) 135/69 mmHg BP Standing (P ost-Dialysis) 131/66 mmHg Sitting Heart Rate Pre-Dialysis 63 BPM Sitting Heart Rate Post-Dialysis 64 BPM Standing Heart Rate Pre-Dialysis 67 BPM Standing Heart Rate Post-Dialysis 67 BPM Temperature Pre-Dialysis 98.4 degF Temperature Post -Dialysis 98.2 degF November 21, 2023 In-Center Hemodialysis Treatment [id number]:00:00.000Z [id number]:03:27.000Z BP Sitting (Pre-Dialysis) 132/71 mmHg BP Sitting (Post-Dialysis) 128/62 mmHg Concurrent Access: falseAV Graft Upper Arm (Left) Arterial BP Standing (Pre-Dialysis) 136/69 mmHg BP Standing (P ost-Dialysis) 134/67 mmHg Sitting Heart Rate Pre-Dialysis 60 BPM Sitting Heart Rate Post-Dialysis 60 BPM Standing Heart Rate Pre-Dialysis 63 BPM Standing Heart Rate Post-Dialysis 62 BPM Temperature Pre-Dialysis 98 degF Temperature Post -Dialysis 98.1 degF November 19, 2023 In-Center Hemodialysis Treatment [id number]:55:55.000Z [id number]:55:30.000Z BP Sitting (Pre-Dialysis) 138/72 mmHg BP Sitting (Post-Dialysis) 132/74 mmHg Concurrent Access: falseAV Graft Upper Arm (Left) Arterial BP Standing (Pre-Dialysis) 146/74 mmHg Sitti ng Heart Rate Post-Dialysis 78 BPM Sitting Heart Rate Pre-Dialysis 72 BPM Temperatu re Post-Dialysis 98.7 degF Standing Heart Rate Pre-Dialysis 74 BPM Temperature Pre-Dialysis 98.5 degF November 16, 2023 In-Center Hemodialysis Treatment [id number]:57:00.000Z [id number]:59:42.000Z BP Sitting (Pre-Dialysis) 146/75 mmHg BP Sitting (Post-Dialysis) 126/67 mmHg Concurrent Access: falseAV Graft Upper Arm (Left) Arterial BP Standing (Pre-Dialysis) 148/72 mmHg BP Standing (P ost-Dialysis) 128/63 mmHg Sitting Heart Rate Pre-Dialysis 67 BPM Sitting Heart Rate Post-Dialysis 64 BPM Standing Heart Rate Pre-Dialysis 70 BPM Standing Heart Rate Post-Dialysis 65 BPM Temperature Pre-Dialysis 98.2 degF Temperature Post -Dialysis 98.2 degF November 14, 2023 In-Center Hemodialysis Treatment [id number]:50:07.000Z [id number]:50:57.000Z BP Sitting (Pre-Dialysis) 152/75 mmHg BP Sitting (Post-Dialysis) 138/66 mmHg Concurrent Access: falseAV Graft Upper Arm (Left) Arterial BP Standing (Pre-Dialysis) 175/100 mmHg BP Standing (P ost-Dialysis) 129/65 mmHg Sitting Heart Rate Pre-Dialysis 64 BPM Sitting Heart Rate Post-Dialysis 62 BPM Standing Heart Rate Pre-Dialysis 81 BPM Standing Heart Rate Post-Dialysis 64 BPM Temperature Pre-Dialysis 98 degF Temperature Post -Dialysis 98.1 degF November 12, 2023 In-Center Hemodialysis Treatment [id number]:03:00.000Z 7540-10-89Q18:05:11.000Z BP Sitting (Pre-Dialysis) 135/69 mmHg BP Sitting (Post-Dialysis) 139/66 mmHg Concurrent Access: falseAV Graft Upper Arm (Left) Arterial BP Standing (Pre-Dialysis) 127/62 mmHg BP Standing (P ost-Dialysis) 117/63 mmHg Sitting Heart Rate Pre-Dialysis 65 BPM Sitting Heart Rate Post-Dialysis 60 BPM Standing Heart Rate Pre-Dialysis 66 BPM Standing Heart Rate Post-Dialysis 64 BPM Temperature Pre-Dialysis 98.1 degF Temperature Post -Dialysis 98 degF November 09, 2023 In-Center Hemodialysis Treatment [id number]:04:00.000Z [id number]:06:23.000Z BP Sitting (Pre-Dialysis) 120/64 mmHg BP Sitting (Post-Dialysis) 121/82 mmHg Concurrent Access: falseAV Graft Upper Arm (Left) Arterial BP Standing (Pre-Dialysis) 116/69 mmHg BP Standing (P ost-Dialysis) 127/65 mmHg Sitting Heart Rate Pre-Dialysis 66 BPM Sitting Heart Rate Post-Dialysis 61 BPM Standing Heart Rate Pre-Dialysis 69 BPM Standing Heart Rate Post-Dialysis 64 BPM Temperature Pre-Dialysis 96.4 degF Temperature Post -Dialysis 98.1 degF November 07, 2023 In-Center Hemodialysis Treatment [id number]:57:00.000Z [id number]:59:22.000Z BP Sitting (Pre-Dialysis) 136/75 mmHg BP Sitting (Post-Dialysis) 132/68 mmHg Concurrent Access: falseAV Graft Upper Arm (Left) Arterial BP Standing (Pre-Dialysis) 138/69 mmHg BP Standing (P ost-Dialysis) 120/70 mmHg Sitting Heart Rate Pre-Dialysis 70 BPM Sitting Heart Rate Post-Dialysis 88 BPM Standing Heart Rate Pre-Dialysis 72 BPM Standing Heart Rate Post-Dialysis 89 BPM Temperature Pre-Dialysis 98.3 degF Temperature Post -Dialysis 98.8 degF November 05, 2023 In-Center Hemodialysis Treatment [id number]:03:00.000Z 8983-41-95C08:04:37.000Z BP Sitting (Pre-Dialysis) 140/70 mmHg BP Sitting (Post-Dialysis) 123/68 mmHg Concurrent Access: falseAV Graft Upper Arm (Left) Arterial BP Standing (Pre-Dialysis) 151/72 mmHg BP Standing (P ost-Dialysis) 129/68 mmHg Sitting Heart Rate Pre-Dialysis 69 BPM Sitting Heart Rate Post-Dialysis 85 BPM Standing Heart Rate Pre-Dialysis 71 BPM Standing Heart Rate Post-Dialysis 89 BPM Temperature Pre-Dialysis 98.2 degF Temperature Post -Dialysis 98.4 degF October 19, 2023 In-Center Hemodialysis Treatment [id number]:56:00.000Z [id number]:30:49.000Z BP Sitting (Pre-Dialysis) 174/91 mmHg BP Sitting (Post-Dialysis) 163/95 mmHg Concurrent Access: falseAV Graft Upper Arm (Left) Arterial BP Standing (Pre-Dialysis) 164/91 mmHg BP Standing (P ost-Dialysis) 168/93 mmHg Sitting Heart Rate Pre-Dialysis 83 BPM Sitting Heart Rate Post-Dialysis 74 BPM Standing Heart Rate Pre-Dialysis 84 BPM Standing Heart Rate Post-Dialysis 62 BPM Temperature Pre-Dialysis 98.2 degF Temperature Post -Dialysis 98.4 degF October 17, 2023 In-Center Hemodialysis Treatment [id number]:04:52.000Z [id number]:04:52.000Z BP Sitting (Pre-Dialysis) 181/82 mmHg BP Sitting (Post-Dialysis) 169/76 mmHg Concurrent Access: falseAV Graft Upper Arm (Left) Arterial BP Standing (Pre-Dialysis) 169/76 mmHg BP Standing (P ost-Dialysis) 160/79 mmHg Sitting Heart Rate Pre-Dialysis 65 BPM Sitting Heart Rate Post-Dialysis 56 BPM Standing Heart Rate Pre-Dialysis 61 BPM Standing Heart Rate Post-Dialysis 69 BPM Temperature Pre-Dialysis 98 degF Temperature Post -Dialysis 98.5 degF October 15, 2023 In-Center Hemodialysis Treatment [id number]:05:00.000Z 5713-02-16Q54:07:15.000Z BP Sitting (Pre-Dialysis) 164/80 mmHg BP Sitting (Post-Dialysis) 152/70 mmHg Concurrent Access: falseAV Graft Upper Arm (Left) Arterial BP Standing (Pre-Dialysis) 164/71 mmHg BP Standing (P ost-Dialysis) 157/71 mmHg Sitting Heart Rate Pre-Dialysis 57 BPM Sitting Heart Rate Post-Dialysis 55 BPM Standing Heart Rate Pre-Dialysis 58 BPM Standing Heart Rate Post-Dialysis 59 BPM Temperature Pre-Dialysis 98.1 degF Temperature Post -Dialysis 98 degF October 11, 2023 In-Center Hemodialysis Treatment [id number]:13:00.000Z [id number]:15:00.000Z BP Sitting (Pre-Dialysis) 190/84 mmHg BP Sitting (Post-Dialysis) 165/70 mmHg Concurrent Access: falseAV Graft Upper Arm (Left) Arterial BP Standing (Pre-Dialysis) 195/79 mmHg BP Standing (P ost-Dialysis) 190/84 mmHg Sitting Heart Rate Pre-Dialysis 57 BPM Sitting Heart Rate Post-Dialysis 56 BPM Standing Heart Rate Pre-Dialysis 59 BPM Standing Heart Rate Post-Dialysis 57 BPM Temperature Pre-Dialysis 97.9 degF Temperature Post -Dialysis 97.3 degF October 05, 2023 In-Center Hemodialysis Treatment [id number]:53:05.000Z 6880-87-70S72:58:55.000Z BP Sitting (Pre-Dialysis) 178/85 mmHg BP Sitting (Post-Dialysis) 172/75 mmHg Concurrent Access: falseAV Graft Upper Arm (Left) Arterial BP Standing (Pre-Dialysis) 185/96 mmHg Sitti ng Heart Rate Post-Dialysis 56 BPM Sitting Heart Rate Pre-Dialysis 57 BPM Temperatu re Post-Dialysis 98.5 degF Standing Heart Rate Pre-Dialysis 61 BPM Temperature Pre-Dialysis 98.1 degF October 01, 2023 In-Center Hemodialysis Treatment [id number]:00:38.000Z [id number]:36:53.000Z BP Sitting (Pre-Dialysis) 144/77 mmHg BP Sitting (Post-Dialysis) 144/64 mmHg Concurrent Access: falseAV Graft Upper Arm (Left) Arterial BP Standing (Pre-Dialysis) 152/74 mmHg BP Standing (P ost-Dialysis) 155/71 mmHg Sitting Heart Rate Pre-Dialysis 64 BPM Sitting Heart Rate Post-Dialysis 56 BPM Standing Heart Rate Pre-Dialysis 57 BPM Standing Heart Rate Post-Dialysis 55 BPM Temperature Pre-Dialysis 98.3 degF Temperature Post -Dialysis 98 degF September 28, 2023 In-Center Hemodialysis Treatment 9926-59-90A60:59:00.000Z [id number]:01:16.000Z BP Sitting (Pre-Dialysis) 164/82 mmHg BP Sitting (Post-Dialysis) 148/97 mmHg Concurrent Access: falseAV Graft Upper Arm (Left) Arterial BP Standing (Pre-Dialysis) 170/74 mmHg BP Standing (P ost-Dialysis) 176/79 mmHg Sitting Heart Rate Pre-Dialysis 57 BPM Sitting Heart Rate Post-Dialysis 56 BPM Standing Heart Rate Pre-Dialysis 58 BPM Standing Heart Rate Post-Dialysis 57 BPM Temperature Pre-Dialysis 98.2 degF Temperature Post -Dialysis 98 degF September 24, 2023 In-Center Hemodialysis Treatment [id number]:59:00.000Z 7197-38-01H86:00:37.000Z BP Sitting (Pre-Dialysis) 166/80 mmHg BP Sitting (Post-Dialysis) 142/67 mmHg Concurrent Access: falseAV Graft Upper Arm (Left) Arterial BP Standing (Pre-Dialysis) 168/76 mmHg BP Standing (P ost-Dialysis) 161/73 mmHg Sitting Heart Rate Pre-Dialysis 62 BPM Sitting Heart Rate Post-Dialysis 56 BPM Standing Heart Rate Pre-Dialysis 64 BPM Standing Heart Rate Post-Dialysis 60 BPM Temperature Pre-Dialysis 98.3 degF Temperature Post -Dialysis 98.5 degF September 21, 2023 In-Center Hemodialysis Treatment [id number]:55:42.000Z [id number]:56:57.000Z BP Sitting (Pre-Dialysis) 198/83 mmHg BP Sitting (Post-Dialysis) 139/80 mmHg Concurrent Access: falseAV Graft Upper Arm (Left) Arterial BP Standing (Pre-Dialysis) 177/88 mmHg BP Standing (P ost-Dialysis) 166/80 mmHg Sitting Heart Rate Pre-Dialysis 58 BPM Sitting Heart Rate Post-Dialysis 58 BPM Standing Heart Rate Pre-Dialysis 61 BPM Standing Heart Rate Post-Dialysis 58 BPM Temperature Pre-Dialysis 98.1 degF Temperature Post -Dialysis 98.5 degF September 17, 2023 In-Center Hemodialysis Treatment [id number]:02:00.000Z 2319-07-46M68:31:59.000Z BP Sitting (Pre-Dialysis) 177/85 mmHg BP Sitting (Post-Dialysis) 149/82 mmHg Concurrent Access: falseAV Graft Upper Arm (Left) Arterial BP Standing (Pre-Dialysis) 190/96 mmHg BP Standing (P ost-Dialysis) 155/110 mmHg Sitting Heart Rate Pre-Dialysis 66 BPM Sitting Heart Rate Post-Dialysis 62 BPM Standing Heart Rate Pre-Dialysis 66 BPM Standing Heart Rate Post-Dialysis 66 BPM Temperature Pre-Dialysis 98 degF Temperature Post -Dialysis 98.7 degF September 14, 2023 In-Center Hemodialysis Treatment [id number]:59:28.000Z 9600-05-75V07:29:28.000Z BP Sitting (Pre-Dialysis) 162/85 mmHg BP Sitting (Post-Dialysis) 137/68 mmHg Concurrent Access: falseAV Graft Upper Arm (Left) Arterial BP Standing (Pre-Dialysis) 177/77 mmHg BP Standing (P ost-Dialysis) 160/48 mmHg Sitting Heart Rate Pre-Dialysis 57 BPM Sitting Heart Rate Post-Dialysis 57 BPM Standing Heart Rate Pre-Dialysis 60 BPM Standing Heart Rate Post-Dialysis 69 BPM Temperature Pre-Dialysis 98.1 degF Temperature Post -Dialysis 97.9 degF September 12, 2023 In-Center Hemodialysis Treatment [id number]:08:48.000Z 5744-14-26O23:38:23.000Z BP Sitting (Pre-Dialysis) 185/71 mmHg BP Sitting (Post-Dialysis) 160/66 mmHg Concurrent Access: falseAV Graft Upper Arm (Left) Arterial BP Standing (Pre-Dialysis) 197/74 mmHg Sitti ng Heart Rate Post-Dialysis 57 BPM Sitting Heart Rate Pre-Dialysis 54 BPM Temperatu re Post-Dialysis 98.7 degF Standing Heart Rate Pre-Dialysis 55 BPM Temperature Pre-Dialysis 98.2 degF September 05, 2023 In-Center Hemodialysis Treatment 3330-51-40P92:02:00.000Z 0553-06-85E86:32:18.000Z BP Sitting (Pre-Dialysis) 164/87 mmHg BP Sitting (Post-Dialysis) 160/78 mmHg Concurrent Access: falseAV Graft Upper Arm (Left) Arterial BP Standing (Pre-Dialysis) 155/83 mmHg BP Standing (P ost-Dialysis) 164/72 mmHg Sitting Heart Rate Pre-Dialysis 60 BPM Sitting Heart Rate Post-Dialysis 59 BPM Standing Heart Rate Pre-Dialysis 61 BPM Standing Heart Rate Post-Dialysis 59 BPM Temperature Pre-Dialysis 98.1 degF Temperature Post -Dialysis 98.1 degF September 03, 2023 In-Center Hemodialysis Treatment [id number]:02:00.000Z [id number]:03:33.000Z BP Sitting (Pre-Dialysis) 166/83 mmHg BP Sitting (Post-Dialysis) 150/69 mmHg Concurrent Access: falseAV Graft Upper Arm (Left) Arterial BP Standing (Pre-Dialysis) 174/89 mmHg BP Standing (P ost-Dialysis) 162/80 mmHg Sitting Heart Rate Pre-Dialysis 57 BPM Sitting Heart Rate Post-Dialysis 60 BPM Standing Heart Rate Pre-Dialysis 62 BPM Standing Heart Rate Post-Dialysis 60 BPM Temperature Pre-Dialysis 97.2 degF Temperature Post -Dialysis 98.9 degF August 31, 2023 In-Center Hemodialysis Treatment [id number]:34:00.000Z 5698-12-07C22:18:02.000Z BP Sitting (Pre-Dialysis) 158/85 mmHg BP Sitting (Post-Dialysis) 143/75 mmHg Concurrent Access: falseAV Graft Upper Arm (Left) Arterial BP Standing (Pre-Dialysis) 161/76 mmHg BP Standing (P ost-Dialysis) 150/82 mmHg Sitting Heart Rate Pre-Dialysis 71 BPM Sitting Heart Rate Post-Dialysis 87 BPM Standing Heart Rate Pre-Dialysis 70 BPM Standing Heart Rate Post-Dialysis 89 BPM Temperature Pre-Dialysis 98.3 degF Temperature Post -Dialysis 98.9 degF August 29, 2023 In-Center Hemodialysis Treatment [id number]:00:00.000Z [id number]:16:23.000Z BP Sitting (Pre-Dialysis) 171/84 mmHg BP Sitting (Post-Dialysis) 140/69 mmHg Concurrent Access: falseAV Graft Upper Arm (Left) Arterial BP Standing (Pre-Dialysis) 168/79 mmHg Sitting Heart Rate Post-Dialysis 64 BPM Sitting Heart Rate Pre-Dialysis 66 BPM Temperatu re Post-Dialysis 99 degF Standing Heart Rate Pre-Dialysis 66 BPM Temperature Pre-Dialysis 98 degF August 27, 2023 In-Center Hemodialysis Treatment [id number]:53:00.000Z 4385-30-26J35:59:50.000Z BP Sitting (Pre-Dialysis) 155/74 mmHg BP Sitting (Post-Dialysis) 144/72 mmHg Concurrent Access: falseAV Graft Upper Arm (Left) Arterial BP Standing (Pre-Dialysis) 157/82 mmHg Sitti ng Heart Rate Post-Dialysis 63 BPM Sitting Heart Rate Pre-Dialysis 58 BPM Temperatu re Post-Dialysis 98.7 degF Standing Heart Rate Pre-Dialysis 60 BPM Temperature Pre-Dialysis 98.2 degF August 24, 2023 In-Center Hemodialysis Treatment [id number]:01:00.000Z 4714-21-43O85:04:49.000Z BP Sitting (Pre-Dialysis) 140/59 mmHg BP Sitting (Post-Dialysis) 153/69 mmHg Concurrent Access: falseAV Graft Upper Arm (Left) Arterial BP Standing (Pre-Dialysis) 162/71 mmHg BP Standing (P ost-Dialysis) 145/67 mmHg Sitting Heart Rate Pre-Dialysis 59 BPM Sitting Heart Rate Post-Dialysis 57 BPM Standing Heart Rate Pre-Dialysis 60 BPM Standing Heart Rate Post-Dialysis 59 BPM Temperature Pre-Dialysis 98.4 degF Temperature Post -Dialysis 97.8 degF August 22, 2023 In-Center Hemodialysis Treatment [id number]:00:00.000Z 6006-47-78E46:43:13.000Z BP Sitting (Pre-Dialysis) 161/94 mmHg BP Sitting (Post-Dialysis) 153/79 mmHg Concurrent Access: falseAV Graft Upper Arm (Left) Arterial BP Standing (Pre-Dialysis) 164/88 mmHg Sitti ng Heart Rate Post-Dialysis 60 BPM Sitting Heart Rate Pre-Dialysis 84 BPM Temperatu re Post-Dialysis 97.8 degF Standing Heart Rate Pre-Dialysis 84 BPM Temperature Pre-Dialysis 98 degF August 20, 2023 In-Center Hemodialysis Treatment [id number]:08:00.000Z 2607-88-22M93:12:19.000Z BP Sitting (Pre-Dialysis) 174/86 mmHg BP Sitting (Post-Dialysis) 165/70 mmHg Concurrent Access: falseAV Graft Upper Arm (Left) Arterial BP Standing (Pre-Dialysis) 175/89 mmHg BP Standing (P ost-Dialysis) 165/78 mmHg Sitting Heart Rate Pre-Dialysis 60 BPM Sitting Heart Rate Post-Dialysis 57 BPM Standing Heart Rate Pre-Dialysis 63 BPM Standing Heart Rate Post-Dialysis 57 BPM Temperature Pre-Dialysis 98.7 degF Temperature Post -Dialysis 98.9 degF August 17, 2023 In-Center Hemodialysis Treatment 9514-50-48P00:02:00.000Z [id number]:32:37.000Z BP Sitting (Pre-Dialysis) 174/75 mmHg BP Sitting (Post-Dialysis) 155/72 mmHg Concurrent Access: falseAV Graft Upper Arm (Left) Arterial BP Standing (Pre-Dialysis) 193/84 mmHg BP Standing (P ost-Dialysis) 145/69 mmHg Sitting Heart Rate Pre-Dialysis 59 BPM Sitting Heart Rate Post-Dialysis 59 BPM Standing Heart Rate Pre-Dialysis 69 BPM Standing Heart Rate Post-Dialysis 62 BPM Temperature Pre-Dialysis 98.7 degF Temperature Post -Dialysis 98.1 degF August 10, 2023 In-Center Hemodialysis Treatment 0915-12-55O38:56:00.000Z 7725-21-03N22:02:37.000Z BP Sitting (Pre-Dialysis) 145/71 mmHg BP Sitting (Post-Dialysis) 133/66 mmHg Concurrent Access: falseAV Graft Upper Arm (Left) Arterial BP Standing (Pre-Dialysis) 153/75 mmHg BP Standing (P ost-Dialysis) 132/67 mmHg Sitting Heart Rate Pre-Dialysis 60 BPM Sitting Heart Rate Post-Dialysis 59 BPM Standing Heart Rate Pre-Dialysis 63 BPM Standing Heart Rate Post-Dialysis 59 BPM Temperature Pre-Dialysis 98.3 degF Temperature Post -Dialysis 99 degF August 08, 2023 In-Center Hemodialysis Treatment [id number]:05:15.000Z 6589-53-01Q54:05:15.000Z BP Sitting (Pre-Dialysis) 167/80 mmHg BP Sitting (Post-Dialysis) 144/68 mmHg Concurrent Access: falseAV Graft Upper Arm (Left) Arterial BP Standing (Pre-Dialysis) 165/84 mmHg BP Standing (P ost-Dialysis) 149/72 mmHg Sitting Heart Rate Pre-Dialysis 55 BPM Sitting Heart Rate Post-Dialysis 59 BPM Standing Heart Rate Pre-Dialysis 63 BPM Standing Heart Rate Post-Dialysis 61 BPM Temperature Pre-Dialysis 98.8 degF Temperature Post -Dialysis 99.6 degF August 04, 2023 In-Center Hemodialysis Treatment [id number]:39:22.000Z 4972-97-74E01:38:19.000Z BP Sitting (Pre-Dialysis) 139/67 mmHg BP Sitting (Post-Dialysis) 130/72 mmHg Concurrent Access: falseAV Graft Upper Arm (Left) Arterial BP Standing (Pre-Dialysis) 138/69 mmHg Sitti ng Heart Rate Post-Dialysis 73 BPM Sitting Heart Rate Pre-Dialysis 56 BPM Temperatu re Post-Dialysis 98.1 degF Standing Heart Rate Pre-Dialysis 57 BPM Temperature Pre-Dialysis 98.8 degF August 01, 2023 In-Center Hemodialysis Treatment [id number]:03:47.000Z 2474-64-08L66:30:00.000Z BP Sitting (Pre-Dialysis) 152/76 mmHg BP Sitting (Post-Dialysis) 134/65 mmHg Concurrent Access: falseAV Graft Upper Arm (Left) Arterial BP Standing (Pre-Dialysis) 179/78 mmHg BP Standing (P ost-Dialysis) 164/66 mmHg Sitting Heart Rate Pre-Dialysis 60 BPM Sitting Heart Rate Post-Dialysis 60 BPM Standing Heart Rate Pre-Dialysis 63 BPM Standing Heart Rate Post-Dialysis 63 BPM Temperature Pre-Dialysis 98.1 degF Temperature Post -Dialysis 99 degF July 30, 2023 In-Center Hemodialysis Treatment [id number]:00:00.000Z [id number]:47:31.000Z BP Sitting (Pre-Dialysis) 152/74 mmHg BP Sitting (Post-Dialysis) 148/69 mmHg Concurrent Access: falseAV Graft Upper Arm (Left) Arterial BP Standing (Pre-Dialysis) 161/78 mmHg BP Standing (P ost-Dialysis) 159/72 mmHg Sitting Heart Rate Pre-Dialysis 58 BPM Sitting Heart Rate Post-Dialysis 64 BPM Standing Heart Rate Pre-Dialysis 62 BPM Standing Heart Rate Post-Dialysis 70 BPM Temperature Pre-Dialysis 98.4 degF Temperature Post -Dialysis 98.6 degF July 27, 2023 In-Center Hemodialysis Treatment [id number]:07:43.000Z 8326-75-65G90:01:28.000Z BP Sitting (Pre-Dialysis) 143/77 mmHg BP Sitting (Post-Dialysis) 122/63 mmHg Concurrent Access: falseAV Graft Upper Arm (Left) Arterial BP Standing (Pre-Dialysis) 156/81 mmHg Sitting Heart Rate Post-Dialysis 59 BPM Sitting Heart Rate Pre-Dialysis 66 BPM Temperatu re Post-Dialysis 97 degF Standing Heart Rate Pre-Dialysis 68 BPM Temperature Pre-Dialysis 98.1 degF July 25, 2023 In-Center Hemodialysis Treatment 6974-05-00I84:05:13.000Z [id number]:03:33.000Z BP Sitting (Pre-Dialysis) 158/71 mmHg BP Sitting (Post-Dialysis) 135/68 mmHg Concurrent Access: falseAV Graft Upper Arm (Left) Arterial BP Standing (Pre-Dialysis) 153/75 mmHg BP Standing (P ost-Dialysis) 127/69 mmHg Sitting Heart Rate Pre-Dialysis 59 BPM Sitting Heart Rate Post-Dialysis 60 BPM Standing Heart Rate Pre-Dialysis 71 BPM Standing Heart Rate Post-Dialysis 59 BPM Temperature Pre-Dialysis 98 degF Temperature Post -Dialysis 98.6 degF July 23, 2023 In-Center Hemodialysis Treatment [id number]:02:28.000Z [id number]:32:28.000Z BP Sitting (Pre-Dialysis) 148/77 mmHg BP Sitting (Post-Dialysis) 134/67 mmHg Concurrent Access: falseAV Graft Upper Arm (Left) Arterial BP Standing (Pre-Dialysis) 152/77 mmHg BP Standing (P ost-Dialysis) 152/63 mmHg Sitting Heart Rate Pre-Dialysis 61 BPM Sitting Heart Rate Post-Dialysis 58 BPM Standing Heart Rate Pre-Dialysis 60 BPM Standing Heart Rate Post-Dialysis 56 BPM Temperature Pre-Dialysis 98.2 degF Temperature Post -Dialysis 97.9 degF July 20, 2023 In-Center Hemodialysis Treatment [id number]:00:33.000Z [id number]:15:58.000Z BP Sitting (Pre-Dialysis) 162/83 mmHg BP Sitting (Post-Dialysis) 132/67 mmHg Concurrent Access: falseAV Graft Upper Arm (Left) Arterial BP Standing (Pre-Dialysis) 159/78 mmHg BP Standing (P ost-Dialysis) 133/71 mmHg Sitting Heart Rate Pre-Dialysis 65 BPM Sitting Heart Rate Post-Dialysis 60 BPM Standing Heart Rate Pre-Dialysis 68 BPM Standing Heart Rate Post-Dialysis 62 BPM Temperature Pre-Dialysis 98.6 degF Temperature Post -Dialysis 98.8 degF July 18, 2023 In-Center Hemodialysis Treatment [id number]:10:00.000Z [id number]:28:06.000Z BP Sitting (Pre-Dialysis) 149/74 mmHg BP Sitting (Post-Dialysis) 132/67 mmHg Concurrent Access: falseAV Graft Upper Arm (Left) Arterial BP Standing (Pre-Dialysis) 160/69 mmHg BP Standing (P ost-Dialysis) 145/74 mmHg Sitting Heart Rate Pre-Dialysis 60 BPM Sitting Heart Rate Post-Dialysis 57 BPM Standing Heart Rate Pre-Dialysis 60 BPM Standing Heart Rate Post-Dialysis 60 BPM Temperature Pre-Dialysis 98.3 degF Temperature Post -Dialysis 99.5 degF July 16, 2023 In-Center Hemodialysis Treatment [id number]:00:00.000Z 9495-86-72K32:32:43.000Z BP Sitting (Pre-Dialysis) 153/88 mmHg BP Sitting (Post-Dialysis) 132/68 mmHg Concurrent Access: falseAV Graft Upper Arm (Left) Arterial BP Standing (Pre-Dialysis) 160/84 mmHg BP Standing (P ost-Dialysis) 133/65 mmHg Sitting Heart Rate Pre-Dialysis 64 BPM Sitting Heart Rate Post-Dialysis 59 BPM Standing Heart Rate Pre-Dialysis 64 BPM Standing Heart Rate Post-Dialysis 62 BPM Temperature Pre-Dialysis 98.2 degF Temperature Post -Dialysis 98.5 degF July 14, 2023 In-Center Hemodialysis Treatment [id number]:10:00.000Z 1344-28-81R52:12:51.000Z BP Sitting (Pre-Dialysis) 162/80 mmHg BP Sitting (Post-Dialysis) 146/61 mmHg Concurrent Access: falseAV Graft Upper Arm (Left) Arterial BP Standing (Pre-Dialysis) 176/77 mmHg Sitti ng Heart Rate Post-Dialysis 56 BPM Sitting Heart Rate Pre-Dialysis 59 BPM Temperatu re Post-Dialysis 98.6 degF Standing Heart Rate Pre-Dialysis 59 BPM Temperature Pre-Dialysis 97.7 degF July 11, 2023 In-Center Hemodialysis Treatment 9332-05-74H73:00:48.000Z 0560-15-06O28:30:23.000Z BP Sitting (Pre-Dialysis) 166/83 mmHg BP Sitting (Post-Dialysis) 125/64 mmHg Concurrent Access: falseAV Graft Upper Arm (Left) Arterial BP Standing (Pre-Dialysis) 163/84 mmHg BP Standing (P ost-Dialysis) 130/69 mmHg Sitting Heart Rate Pre-Dialysis 66 BPM Sitting Heart Rate Post-Dialysis 59 BPM Standing Heart Rate Pre-Dialysis 67 BPM Standing Heart Rate Post-Dialysis 62 BPM Temperature Pre-Dialysis 98.2 degF Temperature Post -Dialysis 98.1 degF July 09, 2023 In-Center Hemodialysis Treatment [id number]:00:53.000Z 2762-56-88V89:02:33.000Z BP Sitting (Pre-Dialysis) 154/77 mmHg BP Sitting (Post-Dialysis) 135/54 mmHg Concurrent Access: falseAV Graft Upper Arm (Left) Arterial BP Standing (Pre-Dialysis) 158/78 mmHg Sitting Heart Rate Post-Dialysis 63 BPM Sitting Heart Rate Pre-Dialysis 60 BPM Standing Heart Rate Pre-Dialysis 63 BPM Temperature Pre-Dialysis 98.6 degF July 06, 2023 In-Center Hemodialysis Treatment 1324-14-95P01:04:14.000Z 7784-59-01U59:35:29.000Z BP Sitting (Pre-Dialysis) 155/95 mmHg BP Sitting (Post-Dialysis) 113/54 mmHg Concurrent Access: falseAV Graft Upper Arm (Left) Arterial BP Standing (Pre-Dialysis) 159/89 mmHg BP Standing (P ost-Dialysis) 134/62 mmHg Sitting Heart Rate Pre-Dialysis 61 BPM Sitting Heart Rate Post-Dialysis 60 BPM Standing Heart Rate Pre-Dialysis 60 BPM Standing Heart Rate Post-Dialysis 62 BPM Temperature Pre-Dialysis 98.4 degF Temperature Post -Dialysis 98.2 degF July 04, 2023 In-Center Hemodialysis Treatment 6966-14-96E98:03:00.000Z 6206-08-24H84:12:32.000Z BP Sitting (Pre-Dialysis) 159/74 mmHg BP Sitting (Post-Dialysis) 143/74 mmHg Concurrent Access: falseAV Graft Upper Arm (Left) Arterial BP Standing (Pre-Dialysis) 154/77 mmHg BP Standing (P ost-Dialysis) 152/67 mmHg Sitting Heart Rate Pre-Dialysis 63 BPM Sitting Heart Rate Post-Dialysis 69 BPM Standing Heart Rate Pre-Dialysis 64 BPM Standing Heart Rate Post-Dialysis 63 BPM Temperature Pre-Dialysis 98 degF Temperature Post -Dialysis 98.9 degF June 28, 2023 In-Center Hemodialysis Treatment 0301-44-24O95:11:00.000Z 5045-84-13Y36:13:54.000Z BP Sitting (Pre-Dialysis) 142/71 mmHg BP Sitting (Post-Dialysis) 132/61 mmHg Concurrent Access: falseAV Graft Upper Arm (Left) Arterial BP Standing (Pre-Dialysis) 133/68 mmHg BP Standing (P ost-Dialysis) 125/76 mmHg Sitting Heart Rate Pre-Dialysis 56 BPM Sitting Heart Rate Post-Dialysis 58 BPM Standing Heart Rate Pre-Dialysis 59 BPM Standing Heart Rate Post-Dialysis 59 BPM Temperature Pre-Dialysis 98.2 degF Temperature Post -Dialysis 98.3 degF June 24, 2023 In-Center Hemodialysis Treatment [id number]:06:00.000Z [id number]:08:26.000Z BP Sitting (Pre-Dialysis) 154/79 mmHg BP Sitting (Post-Dialysis) 132/65 mmHg Concurrent Access: falseAV Graft Upper Arm (Left) Arterial BP Standing (Pre-Dialysis) 158/70 mmHg Sitti ng Heart Rate Post-Dialysis 60 BPM Sitting Heart Rate Pre-Dialysis 60 BPM Temperatu re Post-Dialysis 98.9 degF Standing Heart Rate Pre-Dialysis 61 BPM Temperature Pre-Dialysis 98.3 degF June 22, 2023 In-Center Hemodialysis Treatment [id number]:01:08.000Z 0794-41-78H59:04:28.000Z BP Sitting (Pre-Dialysis) 151/73 mmHg BP Sitting (Post-Dialysis) 127/61 mmHg Concurrent Access: falseAV Graft Upper Arm (Left) Arterial BP Standing (Pre-Dialysis) 149/74 mmHg Sitti ng Heart Rate Post-Dialysis 56 BPM Sitting Heart Rate Pre-Dialysis 64 BPM Temperatu re Post-Dialysis 99.7 degF Standing Heart Rate Pre-Dialysis 63 BPM Temperature Pre-Dialysis 98.7 degF June 18, 2023 In-Center Hemodialysis Treatment 8418-60-63M10:00:59.000Z 1926-21-60U05:04:44.000Z BP Sitting (Pre-Dialysis) 155/80 mmHg BP Sitting (Post-Dialysis) 132/79 mmHg Concurrent Access: falseAV Graft Upper Arm (Left) Arterial BP Standing (Pre-Dialysis) 164/84 mmHg Sitti ng Heart Rate Post-Dialysis 61 BPM Sitting Heart Rate Pre-Dialysis 63 BPM Temperatu re Post-Dialysis 97.6 degF Standing Heart Rate Pre-Dialysis 65 BPM Temperature Pre-Dialysis 98 degF June 15, 2023 In-Center Hemodialysis Treatment 9820-15-06C74:55:37.000Z [id number]:56:27.000Z BP Sitting (Pre-Dialysis) 126/44 mmHg BP Sitting (Post-Dialysis) 111/73 mmHg Concurrent Access: falseAV Graft Upper Arm (Left) Arterial BP Standing (Pre-Dialysis) 118/63 mmHg BP Standing (P ost-Dialysis) 122/70 mmHg Sitting Heart Rate Pre-Dialysis 61 BPM Sitting Heart Rate Post-Dialysis 59 BPM Standing Heart Rate Pre-Dialysis 61 BPM Standing Heart Rate Post-Dialysis 60 BPM Temperature Pre-Dialysis 98.2 degF Temperature Post -Dialysis 98 degF June 14, 2023 In-Center Hemodialysis Treatment 3653-11-68C40:05:00.000Z 3201-46-62U10:17:42.000Z BP Sitting (Pre-Dialysis) 145/73 mmHg BP Sitting (Post-Dialysis) 136/73 mmHg Concurrent Access: falseAV Graft Upper Arm (Left) Arterial BP Standing (Pre-Dialysis) 139/65 mmHg Sitti ng Heart Rate Post-Dialysis 56 BPM Sitting Heart Rate Pre-Dialysis 58 BPM Temperatu re Post-Dialysis 98.9 degF Standing Heart Rate Pre-Dialysis 59 BPM Temperature Pre-Dialysis 97.5 degF June 11, 2023 In-Center Hemodialysis Treatment 2300-12-57N40:08:10.000Z [id number]:46:55.000Z BP Sitting (Pre-Dialysis) 164/78 mmHg BP Sitting (Post-Dialysis) 145/69 mmHg Concurrent Access: falseAV Graft Upper Arm (Left) Arterial BP Standing (Pre-Dialysis) 161/67 mmHg BP Standing (P ost-Dialysis) 144/71 mmHg Sitting Heart Rate Pre-Dialysis 60 BPM Sitting Heart Rate Post-Dialysis 59 BPM Standing Heart Rate Pre-Dialysis 64 BPM Standing Heart Rate Post-Dialysis 71 BPM Temperature Pre-Dialysis 98.7 degF Temperature Post -Dialysis 98.4 degF June 08, 2023 In-Center Hemodialysis Treatment [id number]:02:09.000Z 8174-76-42V22:02:09.000Z BP Sitting (Pre-Dialysis) 156/81 mmHg BP Sitting (Post-Dialysis) 136/68 mmHg Concurrent Access: falseAV Graft Upper Arm (Left) Arterial BP Standing (Pre-Dialysis) 167/79 mmHg BP Standing (P ost-Dialysis) 153/75 mmHg Sitting Heart Rate Pre-Dialysis 64 BPM Sitting Heart Rate Post-Dialysis 60 BPM Standing Heart Rate Pre-Dialysis 65 BPM Standing Heart Rate Post-Dialysis 64 BPM Temperature Pre-Dialysis 98.4 degF Temperature Post -Dialysis 98.2 degF June 06, 2023 In-Center Hemodialysis Treatment 3040-87-13K78:02:00.000Z 6456-85-98U13:03:55.000Z BP Sitting (Pre-Dialysis) 149/70 mmHg BP Sitting (Post-Dialysis) 133/71 mmHg Concurrent Access: falseAV Graft Upper Arm (Left) Arterial BP Standing (Pre-Dialysis) 150/72 mmHg BP Standing (P ost-Dialysis) 145/70 mmHg Sitting Heart Rate Pre-Dialysis 58 BPM Sitting Heart Rate Post-Dialysis 63 BPM Standing Heart Rate Pre-Dialysis 59 BPM Standing Heart Rate Post-Dialysis 62 BPM Temperature Pre-Dialysis 98.4 degF Temperature Post -Dialysis 99.2 degF June 04, 2023 In-Center Hemodialysis Treatment [id number]:04:01.000Z 4902-58-86X46:35:59.000Z BP Sitting (Pre-Dialysis) 146/76 mmHg BP Sitting (Post-Dialysis) 143/66 mmHg Concurrent Access: falseAV Graft Upper Arm (Left) Arterial BP Standing (Pre-Dialysis) 152/72 mmHg Sitti ng Heart Rate Post-Dialysis 58 BPM Sitting Heart Rate Pre-Dialysis 62 BPM Temperatu re Post-Dialysis 100.3 degF Standing Heart Rate Pre-Dialysis 64 BPM Temperature Pre-Dialysis 98.5 degF June 01, 2023 In-Center Hemodialysis Treatment 6865-18-31I74:01:00.000Z [id number]:17:19.000Z BP Sitting (Pre-Dialysis) 141/72 mmHg BP Sitting (Post-Dialysis) 128/55 mmHg Concurrent Access: falseAV Graft Upper Arm (Left) Arterial BP Standing (Pre-Dialysis) 163/77 mmHg BP Standing (P ost-Dialysis) 136/57 mmHg Sitting Heart Rate Pre-Dialysis 62 BPM Sitting Heart Rate Post-Dialysis 63 BPM Standing Heart Rate Pre-Dialysis 63 BPM Standing Heart Rate Post-Dialysis 61 BPM Temperature Pre-Dialysis 98 degF Temperature Post -Dialysis 98.4 degF May 30, 2023 In-Center Hemodialysis Treatment [id number]:02:52.000Z 6511-12-56A11:02:52.000Z BP Sitting (Pre-Dialysis) 136/73 mmHg BP Sitting (Post-Dialysis) 116/58 mmHg Concurrent Access: falseAV Graft Upper Arm (Left) Arterial BP Standing (Pre-Dialysis) 135/105 mmHg BP Standing (P ost-Dialysis) 133/67 mmHg Sitting Heart Rate Pre-Dialysis 57 BPM Sitting Heart Rate Post-Dialysis 60 BPM Standing Heart Rate Pre-Dialysis 77 BPM Standing Heart Rate Post-Dialysis 61 BPM Temperature Pre-Dialysis 98.3 degF Temperature Post -Dialysis 98.2 degF May 28, 2023 In-Center Hemodialysis Treatment 4614-10-56K28:04:49.000Z [id number]:18:09.000Z BP Sitting (Pre-Dialysis) 142/67 mmHg BP Sitting (Post-Dialysis) 131/65 mmHg Concurrent Access: falseAV Graft Upper Arm (Left) Arterial BP Standing (Pre-Dialysis) 150/76 mmHg BP Standing (P ost-Dialysis) 145/73 mmHg Sitting Heart Rate Pre-Dialysis 60 BPM Sitting Heart Rate Post-Dialysis 61 BPM Standing Heart Rate Pre-Dialysis 59 BPM Standing Heart Rate Post-Dialysis 60 BPM Temperature Pre-Dialysis 98.6 degF Temperature Post -Dialysis 98.4 degF May 25, 2023 In-Center Hemodialysis Treatment [id number]:06:36.000Z 3721-85-80Y46:06:36.000Z BP Sitting (Pre-Dialysis) 150/79 mmHg BP Sitting (Post-Dialysis) 145/68 mmHg Concurrent Access: falseAV Graft Upper Arm (Left) Arterial BP Standing (Pre-Dialysis) 163/84 mmHg BP Standing (P ost-Dialysis) 144/62 mmHg Sitting Heart Rate Pre-Dialysis 67 BPM Sitting Heart Rate Post-Dialysis 60 BPM Standing Heart Rate Pre-Dialysis 74 BPM Standing Heart Rate Post-Dialysis 62 BPM Temperature Pre-Dialysis 98.3 degF Temperature Post -Dialysis 98.6 degF May 20, 2023 In-Center Hemodialysis Treatment 7984-27-56H48:18:00.000Z 5297-29-43I43:03:41.000Z BP Sitting (Pre-Dialysis) 127/65 mmHg BP Sitting (Post-Dialysis) 108/61 mmHg Concurrent Access: falseAV Graft Upper Arm (Left) Arterial BP Standing (Pre-Dialysis) 122/60 mmHg BP Standing (P ost-Dialysis) 126/66 mmHg Sitting Heart Rate Pre-Dialysis 60 BPM Sitting Heart Rate Post-Dialysis 62 BPM Standing Heart Rate Pre-Dialysis 61 BPM Standing Heart Rate Post-Dialysis 63 BPM Temperature Pre-Dialysis 98.2 degF Temperature Post -Dialysis 98.6 degF May 18, 2023 In-Center Hemodialysis Treatment 3882-18-26K24:04:23.000Z 3622-58-82P71:04:23.000Z BP Sitting (Pre-Dialysis) 155/81 mmHg BP Sitting (Post-Dialysis) 153/77 mmHg Concurrent Access: falseAV Graft Upper Arm (Left) Arterial BP Standing (Pre-Dialysis) 160/72 mmHg BP Standing (P ost-Dialysis) 146/73 mmHg Sitting Heart Rate Pre-Dialysis 69 BPM Sitting Heart Rate Post-Dialysis 59 BPM Standing Heart Rate Pre-Dialysis 70 BPM Standing Heart Rate Post-Dialysis 63 BPM Temperature Pre-Dialysis 98.3 degF Temperature Post -Dialysis 98.7 degF May 16, 2023 In-Center Hemodialysis Treatment [id number]:12:38.000Z [id number]:31:23.000Z BP Sitting (Pre-Dialysis) 163/68 mmHg BP Sitting (Post-Dialysis) 122/52 mmHg Concurrent Access: falseAV Graft Upper Arm (Left) Arterial BP Standing (Pre-Dialysis) 160/78 mmHg BP Standing (P ost-Dialysis) 129/57 mmHg Sitting Heart Rate Pre-Dialysis 54 BPM Sitting Heart Rate Post-Dialysis 58 BPM Standing Heart Rate Pre-Dialysis 56 BPM Standing Heart Rate Post-Dialysis 60 BPM Temperature Pre-Dialysis 98.2 degF Temperature Post -Dialysis 98.9 degF May 11, 2023 In-Center Hemodialysis Treatment 4482-38-00S71:03:00.000Z 5378-06-48Y39:04:00.000Z BP Sitting (Pre-Dialysis) 137/67 mmHg BP Sitting (Post-Dialysis) 131/65 mmHg Concurrent Access: falseAV Graft Upper Arm (Left) Arterial BP Standing (Pre-Dialysis) 148/69 mmHg Sitti ng Heart Rate Post-Dialysis 59 BPM Sitting Heart Rate Pre-Dialysis 61 BPM Temperatu re Post-Dialysis 98.9 degF Standing Heart Rate Pre-Dialysis 63 BPM Temperature Pre-Dialysis 98.2 degF May 07, 2023 In-Center Hemodialysis Treatment [id number]:04:52.000Z 4648-19-85A47:14:51.000Z BP Sitting (Pre-Dialysis) 146/74 mmHg BP Sitting (Post-Dialysis) 137/64 mmHg Concurrent Access: falseAV Graft Upper Arm (Left) Arterial BP Standing (Pre-Dialysis) 141/66 mmHg BP Standing (P ost-Dialysis) 142/73 mmHg Sitting Heart Rate Pre-Dialysis 58 BPM Sitting Heart Rate Post-Dialysis 59 BPM Standing Heart Rate Pre-Dialysis 66 BPM Standing Heart Rate Post-Dialysis 62 BPM Temperature Pre-Dialysis 98.3 degF Temperature Post -Dialysis 99.3 degF May 04, 2023 In-Center Hemodialysis Treatment [id number]:59:00.000Z 4080-50-56I95:04:13.000Z BP Sitting (Pre-Dialysis) 117/61 mmHg BP Sitting (Post-Dialysis) 127/60 mmHg Concurrent Access: falseAV Graft Upper Arm (Left) Arterial BP Standing (Pre-Dialysis) 139/70 mmHg Sitti ng Heart Rate Post-Dialysis 61 BPM Sitting Heart Rate Pre-Dialysis 60 BPM Temperatu re Post-Dialysis 97.6 degF Standing Heart Rate Pre-Dialysis 65 BPM Temperature Pre-Dialysis 98.2 degF May 02, 2023 In-Center Hemodialysis Treatment 3412-30-88V85:05:00.000Z 6685-17-32J60:30:03.000Z BP Sitting (Pre-Dialysis) 118/61 mmHg BP Sitting (Post-Dialysis) 122/62 mmHg Concurrent Access: falseAV Graft Upper Arm (Left) Arterial BP Standing (Pre-Dialysis) 124/62 mmHg BP Standing (P ost-Dialysis) 123/56 mmHg Sitting Heart Rate Pre-Dialysis 61 BPM Sitting Heart Rate Post-Dialysis 59 BPM Standing Heart Rate Pre-Dialysis 62 BPM Standing Heart Rate Post-Dialysis 63 BPM Temperature Pre-Dialysis 98.9 degF Temperature Post -Dialysis 99 degF April 30, 2023 In-Center Hemodialysis Treatment 1170-57-59T40:59:00.000Z 7356-57-29D08:31:22.000Z BP Sitting (Pre-Dialysis) 141/76 mmHg BP Sitting (Post-Dialysis) 139/88 mmHg Concurrent Access: falseAV Graft Upper Arm (Left) Arterial BP Standing (Pre-Dialysis) 50/74 mmHg BP Standing (P ost-Dialysis) 134/73 mmHg Sitting Heart Rate Pre-Dialysis 60 BPM Sitting Heart Rate Post-Dialysis 65 BPM Standing Heart Rate Pre-Dialysis 60 BPM Standing Heart Rate Post-Dialysis 62 BPM Temperature Pre-Dialysis 98.1 degF Temperature Post -Dialysis 98.2 degF April 27, 2023 In-Center Hemodialysis Treatment 1326-92-15R36:00:00.000Z 2734-82-43Y96:02:42.000Z BP Sitting (Pre-Dialysis) 153/75 mmHg BP Sitting (Post-Dialysis) 142/75 mmHg Concurrent Access: falseAV Graft Upper Arm (Left) Arterial BP Standing (Pre-Dialysis) 161/61 mmHg Sitti ng Heart Rate Post-Dialysis 62 BPM Sitting Heart Rate Pre-Dialysis 63 BPM Temperatu re Post-Dialysis 98.7 degF Standing Heart Rate Pre-Dialysis 69 BPM Temperature Pre-Dialysis 98.1 degF April 25, 2023 In-Center Hemodialysis Treatment 3021-78-05U75:00:00.000Z 5789-30-12Q32:51:55.000Z BP Sitting (Pre-Dialysis) 130/92 mmHg BP Sitting (Post-Dialysis) 127/69 mmHg Concurrent Access: falseAV Graft Upper Arm (Left) Arterial BP Standing (Pre-Dialysis) 154/74 mmHg Sitti ng Heart Rate Post-Dialysis 61 BPM Sitting Heart Rate Pre-Dialysis 62 BPM Temperatu re Post-Dialysis 98.3 degF Standing Heart Rate Pre-Dialysis 65 BPM Temperature Pre-Dialysis 97.3 degF April 23, 2023 In-Center Hemodialysis Treatment 6318-69-98Q01:00:00.000Z 8677-10-04S18:03:15.000Z BP Sitting (Pre-Dialysis) 142/77 mmHg BP Sitting (Post-Dialysis) 151/72 mmHg Concurrent Access: falseAV Graft Upper Arm (Left) Arterial BP Standing (Pre-Dialysis) 145/69 mmHg Sitti ng Heart Rate Post-Dialysis 61 BPM Sitting Heart Rate Pre-Dialysis 61 BPM Temperatu re Post-Dialysis 98.5 degF Standing Heart Rate Pre-Dialysis 63 BPM Temperature Pre-Dialysis 98.2 degF April 20, 2023 In-Center Hemodialysis Treatment 0963-41-59Y57:02:20.000Z 9023-65-91O69:15:15.000Z BP Sitting (Pre-Dialysis) 130/70 mmHg BP Sitting (Post-Dialysis) 142/53 mmHg Concurrent Access: falseAV Graft Upper Arm (Left) Arterial BP Standing (Pre-Dialysis) 145/64 mmHg Sitti ng Heart Rate Post-Dialysis 58 BPM Sitting Heart Rate Pre-Dialysis 60 BPM Temperatu re Post-Dialysis 97.6 degF Standing Heart Rate Pre-Dialysis 61 BPM Temperature Pre-Dialysis 98.2 degF April 18, 2023 In-Center Hemodialysis Treatment 9124-40-58S72:02:40.000Z 6380-43-58E87:08:55.000Z BP Sitting (Pre-Dialysis) 148/73 mmHg BP Sitting (Post-Dialysis) 133/59 mmHg Concurrent Access: falseAV Graft Upper Arm (Left) Arterial BP Standing (Pre-Dialysis) 162/75 mmHg BP Standing (P ost-Dialysis) 143/76 mmHg Sitting Heart Rate Pre-Dialysis 64 BPM Sitting Heart Rate Post-Dialysis 58 BPM Standing Heart Rate Pre-Dialysis 66 BPM Standing Heart Rate Post-Dialysis 62 BPM Temperature Pre-Dialysis 98.4 degF Temperature Post -Dialysis 98.2 degF April 17, 2023 In-Center Hemodialysis Treatment [id number]:57:00.000Z 8365-58-89D47:08:00.000Z BP Sitting (Pre-Dialysis) 141/75 mmHg BP Sitting (Post-Dialysis) 141/74 mmHg Concurrent Access: falseAV Graft Upper Arm (Left) Arterial BP Standing (Pre-Dialysis) 132/79 mmHg BP Standing (P ost-Dialysis) 150/65 mmHg Sitting Heart Rate Pre-Dialysis 58 BPM Sitting Heart Rate Post-Dialysis 59 BPM Standing Heart Rate Pre-Dialysis 58 BPM Standing Heart Rate Post-Dialysis 60 BPM Temperature Pre-Dialysis 97.3 degF Temperature Post -Dialysis 96.7 degF April 13, 2023 In-Center Hemodialysis Treatment [id number]:58:59.000Z 5441-41-01N93:30:00.000Z BP Sitting (Pre-Dialysis) 116/61 mmHg BP Sitting (Post-Dialysis) 115/57 mmHg Concurrent Access: falseAV Graft Upper Arm (Left) Arterial BP Standing (Pre-Dialysis) 124/62 mmHg Sitti ng Heart Rate Post-Dialysis 60 BPM Sitting Heart Rate Pre-Dialysis 61 BPM Temperatu re Post-Dialysis 99.4 degF Standing Heart Rate Pre-Dialysis 63 BPM Temperature Pre-Dialysis 98.4 degF April 11, 2023 In-Center Hemodialysis Treatment 3747-07-53N57:56:00.000Z [id number]:29:17.000Z BP Sitting (Pre-Dialysis) 132/66 mmHg BP Sitting (Post-Dialysis) 120/58 mmHg Concurrent Access: falseAV Graft Upper Arm (Left) Arterial BP Standing (Pre-Dialysis) 132/68 mmHg BP Standing (P ost-Dialysis) 135/61 mmHg Sitting Heart Rate Pre-Dialysis 61 BPM Sitting Heart Rate Post-Dialysis 58 BPM Standing Heart Rate Pre-Dialysis 62 BPM Standing Heart Rate Post-Dialysis 57 BPM Temperature Pre-Dialysis 98.4 degF Temperature Post -Dialysis 98.3 degF April 09, 2023 In-Center Hemodialysis Treatment [id number]:02:54.000Z 4365-10-07N07:34:09.000Z BP Sitting (Pre-Dialysis) 149/72 mmHg BP Sitting (Post-Dialysis) 152/66 mmHg Concurrent Access: falseAV Graft Upper Arm (Left) Arterial BP Standing (Pre-Dialysis) 154/72 mmHg BP Standing (P ost-Dialysis) 138/66 mmHg Sitting Heart Rate Pre-Dialysis 56 BPM Sitting Heart Rate Post-Dialysis 57 BPM Standing Heart Rate Pre-Dialysis 56 BPM Standing Heart Rate Post-Dialysis 56 BPM Temperature Pre-Dialysis 98 degF Temperature Post -Dialysis 98.9 degF April 06, 2023 In-Center Hemodialysis Treatment [id number]:03:15.000Z 1053-72-60M36:00:00.000Z BP Sitting (Pre-Dialysis) 135/63 mmHg BP Sitting (Post-Dialysis) 125/60 mmHg Concurrent Access: falseAV Graft Upper Arm (Left) Arterial BP Standing (Pre-Dialysis) 133/68 mmHg BP Standing (P ost-Dialysis) 128/72 mmHg Sitting Heart Rate Pre-Dialysis 59 BPM Sitting Heart Rate Post-Dialysis 58 BPM Standing Heart Rate Pre-Dialysis 62 BPM Standing Heart Rate Post-Dialysis 62 BPM Temperature Pre-Dialysis 98.2 degF Temperature Post -Dialysis 98.2 degF April 04, 2023 In-Center Hemodialysis Treatment 7683-43-21R14:06:00.000Z 2545-92-37W28:32:53.000Z BP Sitting (Pre-Dialysis) 133/59 mmHg BP Sitting (Post-Dialysis) 130/64 mmHg Concurrent Access: falseAV Graft Upper Arm (Left) Arterial BP Standing (Pre-Dialysis) 125/62 mmHg BP Standing (P ost-Dialysis) 138/65 mmHg Sitting Heart Rate Pre-Dialysis 59 BPM Sitting Heart Rate Post-Dialysis 57 BPM Standing Heart Rate Pre-Dialysis 60 BPM Standing Heart Rate Post-Dialysis 59 BPM Temperature Pre-Dialysis 98.4 degF Temperature Post -Dialysis 98.4 degF April 03, 2023 In-Center Hemodialysis Treatment 1137-10-35W40:10:00.000Z 3704-73-55V55:15:00.000Z BP Sitting (Pre-Dialysis) 140/74 mmHg BP Sitting (Post-Dialysis) 146/68 mmHg Concurrent Access: falseAV Graft Upper Arm (Left) Arterial BP Standing (Pre-Dialysis) 139/69 mmHg BP Standing (P ost-Dialysis) 127/65 mmHg Sitting Heart Rate Pre-Dialysis 62 BPM Sitting Heart Rate Post-Dialysis 60 BPM Standing Heart Rate Pre-Dialysis 66 BPM Standing Heart Rate Post-Dialysis 61 BPM Temperature Pre-Dialysis 98.6 degF Temperature Post -Dialysis 98.1 degF April 02, 2023 In-Center Hemodialysis Treatment 400 mL/min 500 mL/min Concurrent Access: false March 30, 2023 In-Center Hemodialysis Treatment 20 -0 - T0 9: 59 :0 0. 00 0Z 23 -0 - T1 3: 31 :5 3. 00 0Z BP Sitting (Pre-Dial ysis) 115/56 mmHg BP Sitting (Post-Cate lysis) 106/5 4 mmHg Concurrent Access: falseAV Graft Upper Arm (Left) Arterial BP Standing (Pre-Dialysis) 119/60 mmHg BP Standing (P ost-Dialysis) 109/57 mmHg Sitting Heart Rate Pre-Dialysis 60 BPM Sitting Heart Rate Post-Dialysis 72 BPM Standing Heart Rate Pre-Dialysis 63 BPM Standing Heart Rate Post-Dialysis 61 BPM Temperature Pre-Dialysis 98.7 degF Temperature Post -Dialysis 98.1 degF March 28, 2023 In-Center Hemodialysis Treatment 5232-44-22S60:00:00.000Z 3388-93-83Z06:02:48.000Z BP Sitting (Pre-Dialysis) 133/69 mmHg BP Sitting (Post-Dialysis) 118/62 mmHg Concurrent Access: falseAV Graft Upper Arm (Left) Arterial BP Standing (Pre-Dialysis) 149/65 mmHg BP Standing (P ost-Dialysis) 126/62 mmHg Sitting Heart Rate Pre-Dialysis 71 BPM Sitting Heart Rate Post-Dialysis 58 BPM Standing Heart Rate Pre-Dialysis 60 BPM Standing Heart Rate Post-Dialysis 60 BPM Temperature Pre-Dialysis 98.1 degF Temperature Post -Dialysis 98.3 degF March 26, 2023 In-Center Hemodialysis Treatment [id number]:03:07.000Z [id number]:33:25.000Z BP Sitting (Pre-Dialysis) 122/62 mmHg BP Sitting (Post-Dialysis) 113/53 mmHg Concurrent Access: falseAV Graft Upper Arm (Left) Arterial BP Standing (Pre-Dialysis) 132/67 mmHg BP Standing (P ost-Dialysis) 129/55 mmHg Sitting Heart Rate Pre-Dialysis 63 BPM Sitting Heart Rate Post-Dialysis 62 BPM Standing Heart Rate Pre-Dialysis 63 BPM Standing Heart Rate Post-Dialysis 65 BPM Temperature Pre-Dialysis 98.3 degF Temperature Post -Dialysis 99.1 degF March 23, 2023 In-Center Hemodialysis Treatment 2945-04-90D04:01:00.000Z [id number]:34:11.000Z BP Sitting (Pre-Dialysis) 140/80 mmHg BP Sitting (Post-Dialysis) 120/55 mmHg Concurrent Access: falseAV Graft Upper Arm (Left) Arterial BP Standing (Pre-Dialysis) 144/66 mmHg BP Standing (P ost-Dialysis) 122/62 mmHg Sitting Heart Rate Pre-Dialysis 74 BPM Sitting Heart Rate Post-Dialysis 61 BPM Standing Heart Rate Pre-Dialysis 66 BPM Standing Heart Rate Post-Dialysis 63 BPM Temperature Pre-Dialysis 97.8 degF Temperature Post -Dialysis 97.7 degF March 21, 2023 In-Center Hemodialysis Treatment [id number]:56:00.000Z [id number]:29:09.000Z BP Sitting (Pre-Dialysis) 129/66 mmHg BP Sitting (Post-Dialysis) 114/57 mmHg Concurrent Access: falseAV Graft Upper Arm (Left) Arterial BP Standing (Pre-Dialysis) 127/69 mmHg Sitting Heart Rate Post-Dialysis 60 BPM Sitting Heart Rate Pre-Dialysis 64 BPM Temperatu re Post-Dialysis 98 degF Standing Heart Rate Pre-Dialysis 65 BPM Temperature Pre-Dialysis 98 degF March 19, 2023 In-Center Hemodialysis Treatment [id number]:57:00.000Z [id number]:16:58.000Z BP Sitting (Pre-Dialysis) 137/69 mmHg BP Sitting (Post-Dialysis) 129/60 mmHg Concurrent Access: falseAV Graft Upper Arm (Left) Arterial BP Standing (Pre-Dialysis) 132/67 mmHg BP Standing (P ost-Dialysis) 120/56 mmHg Sitting Heart Rate Pre-Dialysis 59 BPM Sitting Heart Rate Post-Dialysis 55 BPM Standing Heart Rate Pre-Dialysis 61 BPM Standing Heart Rate Post-Dialysis 58 BPM Temperature Pre-Dialysis 98.2 degF Temperature Post -Dialysis 98 degF March 16, 2023 In-Center Hemodialysis Treatment [id number]:03:09.000Z [id number]:01:29.000Z BP Sitting (Pre-Dialysis) 121/67 mmHg BP Sitting (Post-Dialysis) 123/65 mmHg Concurrent Access: falseAV Graft Upper Arm (Left) Arterial BP Standing (Pre-Dialysis) 131/64 mmHg BP Standing (P ost-Dialysis) 115/61 mmHg Sitting Heart Rate Pre-Dialysis 64 BPM Sitting Heart Rate Post-Dialysis 64 BPM Standing Heart Rate Pre-Dialysis 64 BPM Standing Heart Rate Post-Dialysis 63 BPM Temperature Pre-Dialysis 97.9 degF Temperature Post -Dialysis 98.2 degF March 14, 2023 In-Center Hemodialysis Treatment [id number]:58:33.000Z [id number]:01:28.000Z BP Sitting (Pre-Dialysis) 145/66 mmHg BP Sitting (Post-Dialysis) 124/81 mmHg Concurrent Access: falseAV Graft Upper Arm (Left) Arterial BP Standing (Pre-Dialysis) 140/72 mmHg BP Standing (P ost-Dialysis) 131/74 mmHg Sitting Heart Rate Pre-Dialysis 65 BPM Sitting Heart Rate Post-Dialysis 63 BPM Standing Heart Rate Pre-Dialysis 66 BPM Standing Heart Rate Post-Dialysis 63 BPM Temperature Pre-Dialysis 98 degF Temperature Post -Dialysis 98.8 degF March 12, 2023 In-Center Hemodialysis Treatment [id number]:00:37.000Z [id number]:18:32.000Z BP Sitting (Pre-Dialysis) 136/64 mmHg BP Sitting (Post-Dialysis) 140/64 mmHg Concurrent Access: falseAV Graft Upper Arm (Left) Arterial BP Standing (Pre-Dialysis) 137/82 mmHg BP Standing (P ost-Dialysis) 135/58 mmHg Sitting Heart Rate Pre-Dialysis 63 BPM Sitting Heart Rate Post-Dialysis 65 BPM Standing Heart Rate Pre-Dialysis 61 BPM Standing Heart Rate Post-Dialysis 64 BPM Temperature Pre-Dialysis 98.2 degF Temperature Post -Dialysis 98.2 degF March 09, 2023 In-Center Hemodialysis Treatment [id number]:58:00.000Z [id number]:07:04.000Z BP Sitting (Pre-Dialysis) 134/64 mmHg BP Sitting (Post-Dialysis) 128/62 mmHg Concurrent Access: falseAV Graft Upper Arm (Left) Arterial BP Standing (Pre-Dialysis) 135/66 mmHg BP Standing (P ost-Dialysis) 146/64 mmHg Sitting Heart Rate Pre-Dialysis 64 BPM Sitting Heart Rate Post-Dialysis 64 BPM Standing Heart Rate Pre-Dialysis 63 BPM Standing Heart Rate Post-Dialysis 67 BPM Temperature Pre-Dialysis 97.9 degF Temperature Post -Dialysis 99 degF March 07, 2023 In-Center Hemodialysis Treatment [id number]:07:14.000Z [id number]:30:34.000Z BP Sitting (Pre-Dialysis) 123/64 mmHg BP Sitting (Post-Dialysis) 120/61 mmHg Concurrent Access: falseAV Graft Upper Arm (Left) Arterial BP Standing (Pre-Dialysis) 132/71 mmHg BP Standing (P ost-Dialysis) 132/71 mmHg Sitting Heart Rate Pre-Dialysis 64 BPM Sitting Heart Rate Post-Dialysis 62 BPM Standing Heart Rate Pre-Dialysis 67 BPM Standing Heart Rate Post-Dialysis 62 BPM Temperature Pre-Dialysis 98 degF Temperature Post -Dialysis 98.7 degF March 05, 2023 In-Center Hemodialysis Treatment [id number]:01:00.000Z [id number]:03:30.000Z BP Sitting (Pre-Dialysis) 122/59 mmHg BP Sitting (Post-Dialysis) 112/54 mmHg Concurrent Access: falseAV Graft Upper Arm (Left) Arterial BP Standing (Pre-Dialysis) 117/64 mmHg BP Standing (P ost-Dialysis) 121/50 mmHg Sitting Heart Rate Pre-Dialysis 59 BPM Sitting Heart Rate Post-Dialysis 63 BPM Standing Heart Rate Pre-Dialysis 62 BPM Standing Heart Rate Post-Dialysis 64 BPM Temperature Pre-Dialysis 98.2 degF Temperature Post -Dialysis 97.9 degF March 02, 2023 In-Center Hemodialysis Treatment [id number]:02:51.000Z [id number]:16:11.000Z BP Sitting (Pre-Dialysis) 136/73 mmHg BP Sitting (Post-Dialysis) 136/75 mmHg Concurrent Access: falseAV Graft Upper Arm (Left) Arterial BP Standing (Pre-Dialysis) 132/73 mmHg BP Standing (P ost-Dialysis) 139/89 mmHg Sitting Heart Rate Pre-Dialysis 68 BPM Sitting Heart Rate Post-Dialysis 65 BPM Standing Heart Rate Pre-Dialysis 72 BPM Standing Heart Rate Post-Dialysis 76 BPM Temperature Pre-Dialysis 97.7 degF Temperature Post -Dialysis 98 degF February 28, 2023 In-Center Hemodialysis Treatment [id number]:57:00.000Z [id number]:46:37.000Z BP Sitting (Pre-Dialysis) 135/69 mmHg BP Sitting (Post-Dialysis) 125/64 mmHg Concurrent Access: falseAV Graft Upper Arm (Left) Arterial BP Standing (Pre-Dialysis) 127/64 mmHg BP Standing (P ost-Dialysis) 119/64 mmHg Sitting Heart Rate Pre-Dialysis 67 BPM Sitting Heart Rate Post-Dialysis 63 BPM Standing Heart Rate Pre-Dialysis 71 BPM Standing Heart Rate Post-Dialysis 64 BPM Temperature Pre-Dialysis 98 degF Temperature Post -Dialysis 98.7 degF February 26, 2023 In-Center Hemodialysis Treatment [id number]:59:35.000Z [id number]:42:55.000Z BP Sitting (Pre-Dialysis) 135/67 mmHg BP Sitting (Post-Dialysis) 120/71 mmHg Concurrent Access: falseAV Graft Upper Arm (Left) Arterial BP Standing (Pre-Dialysis) 139/72 mmHg BP Standing (P ost-Dialysis) 108/85 mmHg Sitting Heart Rate Pre-Dialysis 65 BPM Sitting Heart Rate Post-Dialysis 64 BPM Standing Heart Rate Pre-Dialysis 64 BPM Standing Heart Rate Post-Dialysis 98 BPM Temperature Pre-Dialysis 98 degF Temperature Post -Dialysis 98.2 degF February 23, 2023 In-Center Hemodialysis Treatment [id number]:00:00.000Z [id number]:48:58.000Z BP Sitting (Pre-Dialysis) 160/75 mmHg BP Sitting (Post-Dialysis) 157/66 mmHg Concurrent Access: falseAV Graft Upper Arm (Left) Arterial BP Standing (Pre-Dialysis) 149/76 mmHg BP Standing (P ost-Dialysis) 136/76 mmHg Sitting Heart Rate Pre-Dialysis 65 BPM Sitting Heart Rate Post-Dialysis 57 BPM Standing Heart Rate Pre-Dialysis 66 BPM Standing Heart Rate Post-Dialysis 64 BPM Temperature Pre-Dialysis 98.2 degF Temperature Post -Dialysis 98.7 degF February 21, 2023 In-Center Hemodialysis Treatment [id number]:57:00.000Z 0210-14-15H73:01:43.000Z BP Sitting (Pre-Dialysis) 138/66 mmHg BP Sitting (Post-Dialysis) 132/65 mmHg Concurrent Access: falseAV Graft Upper Arm (Left) Arterial BP Standing (Pre-Dialysis) 133/67 mmHg BP Standing (P ost-Dialysis) 138/67 mmHg Sitting Heart Rate Pre-Dialysis 69 BPM Sitting Heart Rate Post-Dialysis 60 BPM Standing Heart Rate Pre-Dialysis 69 BPM Standing Heart Rate Post-Dialysis 64 BPM Temperature Pre-Dialysis 98.7 degF Temperature Post -Dialysis 99.2 degF February 16, 2023 In-Center Hemodialysis Treatment [id number]:57:00.000Z [id number]:29:06.000Z BP Sitting (Pre-Dialysis) 112/57 mmHg BP Sitting (Post-Dialysis) 106/60 mmHg Concurrent Access: falseAV Graft Upper Arm (Left) Arterial BP Standing (Pre-Dialysis) 131/64 mmHg BP Standing (P ost-Dialysis) 114/63 mmHg Sitting Heart Rate Pre-Dialysis 63 BPM Sitting Heart Rate Post-Dialysis 65 BPM Standing Heart Rate Pre-Dialysis 65 BPM Standing Heart Rate Post-Dialysis 66 BPM Temperature Pre-Dialysis 98.2 degF Temperature Post -Dialysis 98.1 degF February 14, 2023 In-Center Hemodialysis Treatment [id number]:08:00.000Z [id number]:31:47.000Z BP Sitting (Pre-Dialysis) 110/56 mmHg BP Sitting (Post-Dialysis) 110/57 mmHg Concurrent Access: falseAV Graft Upper Arm (Left) Arterial BP Standing (Pre-Dialysis) 122/61 mmHg BP Standing (P ost-Dialysis) 103/67 mmHg Sitting Heart Rate Pre-Dialysis 60 BPM Sitting Heart Rate Post-Dialysis 63 BPM Standing Heart Rate Pre-Dialysis 63 BPM Standing Heart Rate Post-Dialysis 64 BPM Temperature Pre-Dialysis 98.6 degF Temperature Post -Dialysis 98.2 degF February 12, 2023 In-Center Hemodialysis Treatment [id number]:01:52.000Z [id number]:32:17.000Z BP Sitting (Pre-Dialysis) 111/52 mmHg BP Sitting (Post-Dialysis) 103/58 mmHg Concurrent Access: falseAV Graft Upper Arm (Left) Arterial BP Standing (Pre-Dialysis) 112/59 mmHg BP Standing (P ost-Dialysis) 108/61 mmHg Sitting Heart Rate Pre-Dialysis 62 BPM Sitting Heart Rate Post-Dialysis 58 BPM Standing Heart Rate Pre-Dialysis 63 BPM Standing Heart Rate Post-Dialysis 61 BPM Temperature Pre-Dialysis 98 degF Temperature Post -Dialysis 98.1 degF February 09, 2023 In-Center Hemodialysis Treatment [id number]:47:59.000Z 2569-05-00I21:50:29.000Z BP Sitting (Pre-Dialysis) 143/69 mmHg BP Sitting (Post-Dialysis) 120/59 mmHg Concurrent Access: falseAV Graft Upper Arm (Left) Arterial BP Standing (Pre-Dialysis) 116/83 mmHg BP Standing (P ost-Dialysis) 113/58 mmHg Sitting Heart Rate Pre-Dialysis 65 BPM Sitting Heart Rate Post-Dialysis 60 BPM Standing Heart Rate Pre-Dialysis 68 BPM Standing Heart Rate Post-Dialysis 62 BPM Temperature Pre-Dialysis 98.2 degF Temperature Post -Dialysis 98.4 degF February 07, 2023 In-Center Hemodialysis Treatment 0729-09-89B45:00:04.000Z [id number]:30:04.000Z BP Sitting (Pre-Dialysis) 146/72 mmHg BP Sitting (Post-Dialysis) 107/61 mmHg Concurrent Access: falseAV Graft Upper Arm (Left) Arterial BP Standing (Pre-Dialysis) 123/66 mmHg BP Standing (P ost-Dialysis) 120/73 mmHg Sitting Heart Rate Pre-Dialysis 68 BPM Sitting Heart Rate Post-Dialysis 64 BPM Standing Heart Rate Pre-Dialysis 76 BPM Standing Heart Rate Post-Dialysis 67 BPM Temperature Pre-Dialysis 97.7 degF Temperature Post -Dialysis 98.7 degF February 05, 2023 In-Center Hemodialysis Treatment 5972-06-50K66:00:00.000Z [id number]:33:06.000Z BP Sitting (Pre-Dialysis) 122/70 mmHg BP Sitting (Post-Dialysis) 114/59 mmHg Concurrent Access: falseAV Graft Upper Arm (Left) Arterial BP Standing (Pre-Dialysis) 122/65 mmHg BP Standing (P ost-Dialysis) 113/66 mmHg Sitting Heart Rate Pre-Dialysis 65 BPM Sitting Heart Rate Post-Dialysis 61 BPM Standing Heart Rate Pre-Dialysis 66 BPM Standing Heart Rate Post-Dialysis 63 BPM Temperature Pre-Dialysis 98 degF Temperature Post -Dialysis 98 degF February 02, 2023 In-Center Hemodialysis Treatment [id number]:03:41.000Z [id number]:48:16.000Z BP Sitting (Pre-Dialysis) 126/72 mmHg BP Sitting (Post-Dialysis) 110/61 mmHg Concurrent Access: falseAV Graft Upper Arm (Left) Arterial BP Standing (Pre-Dialysis) 130/68 mmHg BP Standing (P ost-Dialysis) 109/61 mmHg Sitting Heart Rate Pre-Dialysis 68 BPM Sitting Heart Rate Post-Dialysis 63 BPM Standing Heart Rate Pre-Dialysis 64 BPM Standing Heart Rate Post-Dialysis 63 BPM Temperature Pre-Dialysis 98.6 degF Temperature Post -Dialysis 98.2 degF January 31, 2023 In-Center Hemodialysis Treatment [id number]:02:29.000Z 8941-94-20Q21:04:34.000Z BP Sitting (Pre-Dialysis) 152/64 mmHg BP Sitting (Post-Dialysis) 118/70 mmHg Concurrent Access: falseAV Graft Upper Arm (Left) Arterial BP Standing (Pre-Dialysis) 144/68 mmHg BP Standing (P ost-Dialysis) 113/56 mmHg Sitting Heart Rate Pre-Dialysis 62 BPM Sitting Heart Rate Post-Dialysis 58 BPM Standing Heart Rate Pre-Dialysis 64 BPM Standing Heart Rate Post-Dialysis 63 BPM Temperature Pre-Dialysis 98 degF Temperature Post -Dialysis 98.6 degF January 29, 2023 In-Center Hemodialysis Treatment [id number]:02:57.000Z 1184-65-39H02:46:17.000Z BP Sitting (Pre-Dialysis) 142/73 mmHg BP Sitting (Post-Dialysis) 116/56 mmHg Concurrent Access: falseAV Graft Upper Arm (Left) Arterial BP Standing (Pre-Dialysis) 124/60 mmHg BP Standing (P ost-Dialysis) 114/63 mmHg Sitting Heart Rate Pre-Dialysis 62 BPM Sitting Heart Rate Post-Dialysis 61 BPM Standing Heart Rate Pre-Dialysis 59 BPM Standing Heart Rate Post-Dialysis 61 BPM Temperature Pre-Dialysis 98.2 degF Temperature Post -Dialysis 98.5 degF January 26, 2023 In-Center Hemodialysis Treatment [id number]:36:28.000Z [id number]:46:03.000Z BP Sitting (Pre-Dialysis) 121/64 mmHg BP Sitting (Post-Dialysis) 103/58 mmHg Concurrent Access: falseAV Graft Upper Arm (Left) Arterial BP Standing (Pre-Dialysis) 116/64 mmHg BP Standing (P ost-Dialysis) 104/60 mmHg Sitting Heart Rate Pre-Dialysis 62 BPM Sitting Heart Rate Post-Dialysis 62 BPM Standing Heart Rate Pre-Dialysis 63 BPM Standing Heart Rate Post-Dialysis 64 BPM Temperature Pre-Dialysis 98.7 degF Temperature Post -Dialysis 98.4 degF January 24, 2023 In-Center Hemodialysis Treatment [id number]:08:59.000Z [id number]:15:39.000Z BP Sitting (Pre-Dialysis) 133/64 mmHg BP Sitting (Post-Dialysis) 115/60 mmHg Concurrent Access: falseAV Graft Upper Arm (Left) Arterial BP Standing (Pre-Dialysis) 143/70 mmHg BP Standing (P ost-Dialysis) 106/67 mmHg Sitting Heart Rate Pre-Dialysis 61 BPM Sitting Heart Rate Post-Dialysis 60 BPM Standing Heart Rate Pre-Dialysis 61 BPM Standing Heart Rate Post-Dialysis 60 BPM Temperature Pre-Dialysis 98 degF Temperature Post -Dialysis 98.7 degF January 20, 2023 In-Center Hemodialysis Treatment [id number]:31:36.000Z [id number]:31:36.000Z BP Sitting (Pre-Dialysis) 119/59 mmHg BP Sitting (Post-Dialysis) 116/51 mmHg Concurrent Access: falseAV Graft Upper Arm (Left) Arterial BP Standing (Pre-Dialysis) 121/62 mmHg Sitti ng Heart Rate Post-Dialysis 61 BPM Sitting Heart Rate Pre-Dialysis 64 BPM Temperatu re Post-Dialysis 98.7 degF Standing Heart Rate Pre-Dialysis 63 BPM Temperature Pre-Dialysis 98.8 degF January 17, 2023 In-Center Hemodialysis Treatment 6989-05-95X45:00:45.000Z 3700-09-21Z08:59:05.000Z BP Sitting (Pre-Dialysis) 140/69 mmHg BP Sitting (Post-Dialysis) 110/67 mmHg Concurrent Access: falseAV Graft Upper Arm (Left) Arterial BP Standing (Pre-Dialysis) 123/65 mmHg BP Standing (P ost-Dialysis) 112/59 mmHg Sitting Heart Rate Pre-Dialysis 63 BPM Sitting Heart Rate Post-Dialysis 64 BPM Standing Heart Rate Pre-Dialysis 66 BPM Standing Heart Rate Post-Dialysis 65 BPM Temperature Pre-Dialysis 97.6 degF Temperature Post -Dialysis 97.3 degF January 15, 2023 In-Center Hemodialysis Treatment [id number]:01:33.000Z 7010-36-44G59:02:23.000Z BP Sitting (Pre-Dialysis) 120/58 mmHg BP Sitting (Post-Dialysis) 118/63 mmHg Concurrent Access: falseAV Graft Upper Arm (Left) Arterial BP Standing (Pre-Dialysis) 116/63 mmHg BP Standing (P ost-Dialysis) 140/68 mmHg Sitting Heart Rate Pre-Dialysis 58 BPM Sitting Heart Rate Post-Dialysis 63 BPM Standing Heart Rate Pre-Dialysis 60 BPM Standing Heart Rate Post-Dialysis 61 BPM Temperature Pre-Dialysis 98.1 degF Temperature Post -Dialysis 98.4 degF January 12, 2023 InCenter Hemodialysis Treatment [id number]:13:00.000Z 2680-73-57H70:21:27.000Z BP Sitting (Pre-Dialysis) 129/62 mmHg BP Sitting (Post-Dialysis) 133/61 mmHg Concurrent Access: falseAV Graft Upper Arm (Left) Arterial BP Standing (Pre-Dialysis) 127/61 mmHg BP Standing (P ost-Dialysis) 112/62 mmHg Sitting Heart Rate Pre-Dialysis 61 BPM Sitting Heart Rate Post-Dialysis 61 BPM Standing Heart Rate Pre-Dialysis 63 BPM Standing Heart Rate Post-Dialysis 64 BPM Temperature Pre-Dialysis 97.8 degF Temperature Post -Dialysis 98.3 degF January 10, 2023 In-Center Hemodialysis Treatment [id number]:50:00.000Z 4733-60-92N70:05:35.000Z BP Sitting (Pre-Dialysis) 101/56 mmHg BP Sitting (Post-Dialysis) 93/61 mmHg Concurrent Access: falseAV Graft Upper Arm (Left) Arterial BP Standing (Pre-Dialysis) 102/47 mmHg BP Standing (P ost-Dialysis) 120/72 mmHg Sitting Heart Rate Pre-Dialysis 62 BPM Sitting Heart Rate Post-Dialysis 63 BPM Standing Heart Rate Pre-Dialysis 64 BPM Standing Heart Rate Post-Dialysis 62 BPM Temperature Pre-Dialysis 98.3 degF Temperature Post -Dialysis 97.8 degF January 08, 2023 In-Center Hemodialysis Treatment [id number]:14:00.000Z 5096-57-38N85:30:23.000Z BP Sitting (Pre-Dialysis) 122/64 mmHg BP Sitting (Post-Dialysis) 105/57 mmHg Concurrent Access: falseAV Graft Upper Arm (Left) Arterial BP Standing (Pre-Dialysis) 121/54 mmHg BP Standing (P ost-Dialysis) 112/64 mmHg Sitting Heart Rate Pre-Dialysis 61 BPM Sitting Heart Rate Post-Dialysis 64 BPM Standing Heart Rate Pre-Dialysis 60 BPM Standing Heart Rate Post-Dialysis 61 BPM Temperature Pre-Dialysis 98.2 degF Temperature Post -Dialysis 98.4 degF January 05, 2023 In-Center Hemodialysis Treatment [id number]:10:00.000Z [id number]:09:34.000Z BP Sitting (Pre-Dialysis) 137/62 mmHg BP Sitting (Post-Dialysis) 104/55 mmHg Concurrent Access: falseAV Graft Upper Arm (Left) Arterial BP Standing (Pre-Dialysis) 120/63 mmHg BP Standing (P ost-Dialysis) 118/82 mmHg Sitting Heart Rate Pre-Dialysis 68 BPM Sitting Heart Rate Post-Dialysis 64 BPM Standing Heart Rate Pre-Dialysis 68 BPM Standing Heart Rate Post-Dialysis 63 BPM Temperature Pre-Dialysis 97.9 degF Temperature Post -Dialysis 98.3 degF January 03, 2023 In-Center Hemodialysis Treatment 9613-17-23R72:05:00.000Z 5525-39-87W89:51:25.000Z BP Sitting (Pre-Dialysis) 95/50 mmHg BP Sitting (Post-Dialysis) 94/50 mmHg Concurrent Access: falseAV Graft Upper Arm (Left) Arterial BP Standing (Pre-Dialysis) 109/57 mmHg Sitti ng Heart Rate Post-Dialysis 59 BPM Sitting Heart Rate Pre-Dialysis 59 BPM Temperatu re Post-Dialysis 98.1 degF Standing Heart Rate Pre-Dialysis 68 BPM Temperature Pre-Dialysis 97.9 degF January 01, 2023 In-Center Hemodialysis Treatment [id number]:10:31.000Z 5971-92-99R97:10:56.000Z BP Sitting (Pre-Dialysis) 115/86 mmHg BP Sitting (Post-Dialysis) 106/44 mmHg Concurrent Access: falseAV Graft Upper Arm (Left) Arterial BP Standing (Pre-Dialysis) 97/50 mmHg BP Standing (P ost-Dialysis) 111/76 mmHg Sitting Heart Rate Pre-Dialysis 60 BPM Sitting Heart Rate Post-Dialysis 72 BPM Standing Heart Rate Pre-Dialysis 60 BPM Standing Heart Rate Post-Dialysis 63 BPM Temperature Pre-Dialysis 97.4 degF Temperature Post -Dialysis 97.2 degF December 29, 2022 In-Center Hemodialysis Treatment 2613-55-29I00:05:02.000Z [id number]:46:17.000Z BP Sitting (Pre-Dialysis) 125/72 mmHg BP Sitting (Post-Dialysis) 111/59 mmHg Concurrent Access: falseAV Graft Upper Arm (Left) Arterial BP Standing (Pre-Dialysis) 113/57 mmHg BP Standing (P ost-Dialysis) 127/77 mmHg Sitting Heart Rate Pre-Dialysis 60 BPM Sitting Heart Rate Post-Dialysis 64 BPM Standing Heart Rate Pre-Dialysis 61 BPM Standing Heart Rate Post-Dialysis 66 BPM Temperature Pre-Dialysis 97.7 degF Temperature Post -Dialysis 98.7 degF December 27, 2022 In-Center Hemodialysis Treatment 7410-15-63O40:02:43.000Z 1593-83-26T18:02:43.000Z BP Sitting (Pre-Dialysis) 108/48 mmHg BP Sitting (Post-Dialysis) 105/44 mmHg Concurrent Access: falseAV Graft Upper Arm (Left) Arterial Sitting Heart Rate Pre-Dialysis 62 BPM BP Standing (Post-Dialysis) 104/56 mmHg Temperature Pre-Dialysis 97.3 degF Sitting Heart Ra te Post-Dialysis 69 BPM Standing Heart Rate Post-Cate lysis 65 BPM Temperature Post-Dialysis 98 degF December 25, 2022 In-Center Hemodialysis Treatment 3653-55-51X32:01:17.000Z 1185-40-78C22:01:25.000Z BP Sitting (Pre-Dialysis) 119/61 mmHg BP Sitting (Post-Dialysis) 120/70 mmHg Concurrent Access: falseAV Graft Upper Arm (Left) Arterial Sitting Heart Rate Pre-Dialysis 61 BPM Sitting H eart Rate Post-Dialysis 61 BPM Temperature Pre-Dialysis 97.3 degF Temperature Post -Dialysis 97.6 degF December 22, 2022 In-Center Hemodialysis Treatment 3585-57-90T42:01:26.000Z 8005-06-02X38:18:31.000Z BP Sitting (Pre-Dialysis) 137/65 mmHg BP Sitting (Post-Dialysis) 130/58 mmHg Concurrent Access: falseAV Graft Upper Arm (Left) Arterial BP Standing (Pre-Dialysis) 129/73 mmHg BP Standing (P ost-Dialysis) 112/56 mmHg Sitting Heart Rate Pre-Dialysis 68 BPM Sitting Heart Rate Post-Dialysis 68 BPM Standing Heart Rate Pre-Dialysis 69 BPM Standing Heart Rate Post-Dialysis 71 BPM Temperature Pre-Dialysis 97.3 degF Temperature Post -Dialysis 98 degF December 20, 2022 In-Center Hemodialysis Treatment 4561-69-56Z59:01:00.000Z [id number]:02:36.000Z BP Sitting (Pre-Dialysis) 142/73 mmHg BP Sitting (Post-Dialysis) 106/57 mmHg Concurrent Access: falseAV Graft Upper Arm (Left) Arterial BP Standing (Pre-Dialysis) 133/81 mmHg Sitti ng Heart Rate Post-Dialysis 68 BPM Sitting Heart Rate Pre-Dialysis 74 BPM Temperatu re Post-Dialysis 98.2 degF Standing Heart Rate Pre-Dialysis 86 BPM Temperature Pre-Dialysis 98 degF December 18, 2022 In-Center Hemodialysis Treatment 1877-34-24V49:00:42.000Z 7828-12-68A39:00:42.000Z BP Sitting (Pre-Dialysis) 109/53 mmHg BP Sitting (Post-Dialysis) 113/57 mmHg Concurrent Access: falseAV Graft Upper Arm (Left) Arterial BP Standing (Pre-Dialysis) 125/54 mmHg BP Standing (P ost-Dialysis) 106/55 mmHg Sitting Heart Rate Pre-Dialysis 64 BPM Sitting Heart Rate Post-Dialysis 63 BPM Standing Heart Rate Pre-Dialysis 71 BPM Standing Heart Rate Post-Dialysis 67 BPM Temperature Pre-Dialysis 98.2 degF Temperature Post -Dialysis 98.6 degF December 15, 2022 In-Center Hemodialysis Treatment [id number]:59:00.000Z 7464-23-75P17:31:39.000Z BP Sitting (Pre-Dialysis) 138/68 mmHg BP Sitting (Post-Dialysis) 104/68 mmHg Concurrent Access: falseAV Graft Upper Arm (Left) Arterial BP Standing (Pre-Dialysis) 115/34 mmHg Sitti ng Heart Rate Post-Dialysis 64 BPM Sitting Heart Rate Pre-Dialysis 60 BPM Temperatu re Post-Dialysis 98.8 degF Standing Heart Rate Pre-Dialysis 67 BPM Temperature Pre-Dialysis 98 degF December 13, 2022 In-Center Hemodialysis Treatment 2513-84-62K29:02:46.000Z 8638-84-17Z60:04:01.000Z BP Sitting (Pre-Dialysis) 113/57 mmHg BP Sitting (Post-Dialysis) 100/64 mmHg Concurrent Access: falseAV Graft Upper Arm (Left) Arterial BP Standing (Pre-Dialysis) 121/67 mmHg BP Standing (P ost-Dialysis) 103/62 mmHg Sitting Heart Rate Pre-Dialysis 59 BPM Sitting Heart Rate Post-Dialysis 64 BPM Standing Heart Rate Pre-Dialysis 60 BPM Standing Heart Rate Post-Dialysis 75 BPM Temperature Pre-Dialysis 98 degF Temperature Post -Dialysis 97.6 degF December 11, 2022 In-Center Hemodialysis Treatment 8161-05-72S63:00:00.000Z 3491-66-09A49:32:10.000Z BP Sitting (Pre-Dialysis) 132/42 mmHg BP Sitting (Post-Dialysis) 97/52 mmHg Concurrent Access: falseAV Graft Upper Arm (Left) Arterial BP Standing (Pre-Dialysis) 109/58 mmHg BP Standing (P ost-Dialysis) 112/60 mmHg Sitting Heart Rate Pre-Dialysis 58 BPM Sitting Heart Rate Post-Dialysis 62 BPM Standing Heart Rate Pre-Dialysis 59 BPM Standing Heart Rate Post-Dialysis 62 BPM Temperature Pre-Dialysis 98.2 degF Temperature Post -Dialysis 98 degF December 08, 2022 In-Center Hemodialysis Treatment 9029-05-39U09:59:00.000Z [id number]:16:52.000Z BP Sitting (Pre-Dialysis) 140/75 mmHg BP Sitting (Post-Dialysis) 122/71 mmHg Concurrent Access: falseAV Graft Upper Arm (Left) Arterial BP Standing (Pre-Dialysis) 138/70 mmHg BP Standing (P ost-Dialysis) 104/52 mmHg Sitting Heart Rate Pre-Dialysis 70 BPM Sitting Heart Rate Post-Dialysis 68 BPM Standing Heart Rate Pre-Dialysis 71 BPM Standing Heart Rate Post-Dialysis 80 BPM Temperature Pre-Dialysis 98 degF Temperature Post -Dialysis 98.2 degF 2022 In-Center Hemodialysis Treatment [id number]:58:00.000Z [id number]:09:39.000Z BP Sitting (Pre-Dialysis) 119/70 mmHg BP Sitting (Post-Dialysis) 109/66 mmHg Concurrent Access: falseAV Graft Upper Arm (Left) Arterial BP Standing (Pre-Dialysis) 96/55 mmHg BP Standing (P ost-Dialysis) 132/66 mmHg Sitting Heart Rate Pre-Dialysis 68 BPM Sitting Heart Rate Post-Dialysis 67 BPM Standing Heart Rate Pre-Dialysis 63 BPM Standing Heart Rate Post-Dialysis 66 BPM Temperature Pre-Dialysis 98.2 degF Temperature Post -Dialysis 98.6 degF December 04, 2022 In-Center Hemodialysis Treatment [id number]:00:57.000Z [id number]:32:12.000Z BP Sitting (Pre-Dialysis) 124/73 mmHg BP Sitting (Post-Dialysis) 104/66 mmHg Concurrent Access: falseAV Graft Upper Arm (Left) Arterial BP Standing (Pre-Dialysis) 112/62 mmHg BP Standing (P ost-Dialysis) 132/55 mmHg Sitting Heart Rate Pre-Dialysis 61 BPM Sitting Heart Rate Post-Dialysis 67 BPM Standing Heart Rate Pre-Dialysis 63 BPM Standing Heart Rate Post-Dialysis 70 BPM Temperature Pre-Dialysis 97.6 degF Temperature Post -Dialysis 99.1 degF December 01, 2022 In-Center Hemodialysis Treatment [id number]:02:00.000Z [id number]:32:38.000Z BP Sitting (Pre-Dialysis) 137/72 mmHg BP Sitting (Post-Dialysis) 121/71 mmHg Concurrent Access: falseAV Graft Upper Arm (Left) Arterial BP Standing (Pre-Dialysis) 123/65 mmHg BP Standing (P ost-Dialysis) 102/62 mmHg Sitting Heart Rate Pre-Dialysis 66 BPM Sitting Heart Rate Post-Dialysis 63 BPM Standing Heart Rate Pre-Dialysis 67 BPM Standing Heart Rate Post-Dialysis 67 BPM Temperature Pre-Dialysis 98 degF Temperature Post -Dialysis 98.5 degF November 29, 2022 In-Center Hemodialysis Treatment [id number]:00:48.000Z [id number]:30:48.000Z BP Sitting (Pre-Dialysis) 114/65 mmHg BP Sitting (Post-Dialysis) 105/61 mmHg Concurrent Access: falseAV Graft Upper Arm (Left) Arterial BP Standing (Pre-Dialysis) 111/63 mmHg BP Standing (P ost-Dialysis) 116/55 mmHg Sitting Heart Rate Pre-Dialysis 66 BPM Sitting Heart Rate Post-Dialysis 62 BPM Standing Heart Rate Pre-Dialysis 65 BPM Standing Heart Rate Post-Dialysis 65 BPM Temperature Pre-Dialysis 97.3 degF Temperature Post -Dialysis 98.9 degF November 27, 2022 In-Center Hemodialysis Treatment [id number]:02:25.000Z [id number]:05:20.000Z BP Sitting (Pre-Dialysis) 104/57 mmHg BP Sitting (Post-Dialysis) 99/53 mmHg Concurrent Access: falseAV Graft Upper Arm (Left) Arterial BP Standing (Pre-Dialysis) 98/54 mmHg BP Standing (P ost-Dialysis) 110/65 mmHg Sitting Heart Rate Pre-Dialysis 63 BPM Sitting Heart Rate Post-Dialysis 64 BPM Standing Heart Rate Pre-Dialysis 62 BPM Standing Heart Rate Post-Dialysis 65 BPM Temperature Pre-Dialysis 98.2 degF Temperature Post -Dialysis 97.6 degF November 24, 2022 In-Center Hemodialysis Treatment [id number]:58:00.000Z [id number]:21:15.000Z BP Sitting (Pre-Dialysis) 138/75 mmHg BP Sitting (Post-Dialysis) 101/62 mmHg Concurrent Access: falseAV Graft Upper Arm (Left) Arterial BP Standing (Pre-Dialysis) 111/65 mmHg BP Standing (P ost-Dialysis) 102/63 mmHg Sitting Heart Rate Pre-Dialysis 67 BPM Sitting Heart Rate Post-Dialysis 67 BPM Standing Heart Rate Pre-Dialysis 69 BPM Standing Heart Rate Post-Dialysis 70 BPM Temperature Pre-Dialysis 98.5 degF Temperature Post -Dialysis 96.7 degF November 22, 2022 In-Center Hemodialysis Treatment [id number]:59:55.000Z [id number]:46:10.000Z BP Sitting (Pre-Dialysis) 147/67 mmHg BP Sitting (Post-Dialysis) 120/64 mmHg Concurrent Access: falseAV Graft Upper Arm (Left) Arterial BP Standing (Pre-Dialysis) 139/69 mmHg BP Standing (P ost-Dialysis) 127/101 mmHg Sitting Heart Rate Pre-Dialysis 62 BPM Sitting Heart Rate Post-Dialysis 62 BPM Standing Heart Rate Pre-Dialysis 66 BPM Standing Heart Rate Post-Dialysis 70 BPM Temperature Pre-Dialysis 97.8 degF Temperature Post -Dialysis 98.2 degF November 20, 2022 In-Center Hemodialysis Treatment [id number]:59:58.000Z [id number]:01:38.000Z BP Sitting (Pre-Dialysis) 110/63 mmHg BP Sitting (Post-Dialysis) 97/63 mmHg Concurrent Access: falseAV Graft Upper Arm (Left) Arterial BP Standing (Pre-Dialysis) 95/60 mmHg BP Standing (P ost-Dialysis) 106/51 mmHg Sitting Heart Rate Pre-Dialysis 60 BPM Sitting Heart Rate Post-Dialysis 61 BPM Standing Heart Rate Pre-Dialysis 71 BPM Standing Heart Rate Post-Dialysis 65 BPM Temperature Pre-Dialysis 97.7 degF Temperature Post -Dialysis 98.3 degF November 17, 2022 In-Center Hemodialysis Treatment [id number]:04:01.000Z [id number]:32:46.000Z BP Sitting (Pre-Dialysis) 125/67 mmHg BP Sitting (Post-Dialysis) 121/65 mmHg Concurrent Access: falseAV Graft Upper Arm (Left) Arterial BP Standing (Pre-Dialysis) 127/68 mmHg BP Standing (P ost-Dialysis) 122/62 mmHg Sitting Heart Rate Pre-Dialysis 61 BPM Sitting Heart Rate Post-Dialysis 64 BPM Standing Heart Rate Pre-Dialysis 63 BPM Standing Heart Rate Post-Dialysis 73 BPM Temperature Pre-Dialysis 98.5 degF Temperature Post -Dialysis 98.3 degF November 15, 2022 In-Center Hemodialysis Treatment [id number]:10:00.000Z 1267-28-25M37:30:00.000Z BP Sitting (Pre-Dialysis) 108/61 mmHg BP Sitting (Post-Dialysis) 106/66 mmHg Concurrent Access: falseAV Graft Upper Arm (Left) Arterial Sitting Heart Rate Pre-Dialysis 57 BPM BP Standing (Post-Dialysis) 102/59 mmHg Temperature Pre-Dialysis 97.9 degF Sitting Heart Ra te Post-Dialysis 61 BPM Standing Heart Rate Post-Cate lysis 70 BPM Temperature Post-Dialysis 98 .5 degF November 13, 2022 In-Center Hemodialysis Treatment [id number]:00:00.000Z 2383-08-42D10:05:59.000Z BP Sitting (Pre-Dialysis) 107/57 mmHg BP Sitting (Post-Dialysis) 103/58 mmHg Concurrent Access: falseAV Graft Upper Arm (Left) Arterial BP Standing (Pre-Dialysis) 115/59 mmHg BP Standing (P ost-Dialysis) 111/65 mmHg Sitting Heart Rate Pre-Dialysis 61 BPM Sitting Heart Rate Post-Dialysis 60 BPM Standing Heart Rate Pre-Dialysis 59 BPM Standing Heart Rate Post-Dialysis 64 BPM Temperature Pre-Dialysis 97.4 degF Temperature Post -Dialysis 98.3 degF November 10, 2022 In-Center Hemodialysis Treatment [id number]:03:34.000Z [id number]:04:24.000Z BP Sitting (Pre-Dialysis) 122/62 mmHg BP Sitting (Post-Dialysis) 97/56 mmHg Concurrent Access: falseAV Graft Upper Arm (Left) Arterial BP Standing (Pre-Dialysis) 109/64 mmHg BP Standing (P ost-Dialysis) 117/63 mmHg Sitting Heart Rate Pre-Dialysis 64 BPM Sitting Heart Rate Post-Dialysis 68 BPM Standing Heart Rate Pre-Dialysis 67 BPM Standing Heart Rate Post-Dialysis 73 BPM Temperature Pre-Dialysis 97.7 degF Temperature Post -Dialysis 98.1 degF November 08, 2022 In-Center Hemodialysis Treatment [id number]:02:37.000Z [id number]:03:27.000Z BP Sitting (Pre-Dialysis) 127/64 mmHg BP Sitting (Post-Dialysis) 106/53 mmHg Concurrent Access: falseAV Graft Upper Arm (Left) Arterial BP Standing (Pre-Dialysis) 112/65 mmHg BP Standing (P ost-Dialysis) 122/56 mmHg Sitting Heart Rate Pre-Dialysis 64 BPM Sitting Heart Rate Post-Dialysis 63 BPM Standing Heart Rate Pre-Dialysis 74 BPM Standing Heart Rate Post-Dialysis 64 BPM Temperature Pre-Dialysis 98 degF Temperature Post -Dialysis 98.2 degF November 06, 2022 In-Center Hemodialysis Treatment [id number]:01:50.000Z 6649-55-75T29:47:15.000Z BP Sitting (Pre-Dialysis) 109/63 mmHg BP Sitting (Post-Dialysis) 123/61 mmHg Concurrent Access: falseAV Graft Upper Arm (Left) Arterial BP Standing (Pre-Dialysis) 120/64 mmHg BP Standing (P ost-Dialysis) 124/69 mmHg Sitting Heart Rate Pre-Dialysis 63 BPM Sitting Heart Rate Post-Dialysis 64 BPM Standing Heart Rate Pre-Dialysis 64 BPM Standing Heart Rate Post-Dialysis 64 BPM Temperature Pre-Dialysis 97.6 degF Temperature Post -Dialysis 98.5 degF November 03, 2022 In-Center Hemodialysis Treatment [id number]:00:00.000Z [id number]:01:38.000Z BP Sitting (Pre-Dialysis) 127/65 mmHg BP Sitting (Post-Dialysis) 116/60 mmHg Concurrent Access: falseAV Graft Upper Arm (Left) Arterial BP Standing (Pre-Dialysis) 119/62 mmHg BP Standing (P ost-Dialysis) 118/70 mmHg Sitting Heart Rate Pre-Dialysis 65 BPM Sitting Heart Rate Post-Dialysis 65 BPM Standing Heart Rate Pre-Dialysis 66 BPM Standing Heart Rate Post-Dialysis 68 BPM Temperature Pre-Dialysis 97.6 degF Temperature Post -Dialysis 97.7 degF November 01, 2022 In-Center Hemodialysis Treatment [id number]:11:00.000Z [id number]:12:56.000Z BP Sitting (Pre-Dialysis) 114/83 mmHg BP Sitting (Post-Dialysis) 125/62 mmHg Concurrent Access: falseAV Graft Upper Arm (Left) Arterial BP Standing (Pre-Dialysis) 121/56 mmHg Sitti ng Heart Rate Post-Dialysis 66 BPM Sitting Heart Rate Pre-Dialysis 86 BPM Temperatu re Post-Dialysis 98.3 degF Standing Heart Rate Pre-Dialysis 85 BPM Temperature Pre-Dialysis 97.8 degF October 30, 2022 In-Center Hemodialysis Treatment [id number]:16:48.000Z [id number]:32:38.000Z BP Sitting (Pre-Dialysis) 122/64 mmHg BP Sitting (Post-Dialysis) 120/65 mmHg Concurrent Access: falseAV Graft Upper Arm (Left) Arterial BP Standing (Pre-Dialysis) 105/41 mmHg BP Standing (P ost-Dialysis) 115/54 mmHg Sitting Heart Rate Pre-Dialysis 61 BPM Sitting Heart Rate Post-Dialysis 65 BPM Standing Heart Rate Pre-Dialysis 64 BPM Standing Heart Rate Post-Dialysis 67 BPM Temperature Pre-Dialysis 98.2 degF Temperature Post -Dialysis 98.3 degF October 27, 2022 In-Center Hemodialysis Treatment [id number]:28:00.000Z 5809-69-01G02:31:07.000Z BP Sitting (Pre-Dialysis) 125/62 mmHg BP Sitting (Post-Dialysis) 105/74 mmHg Concurrent Access: falseAV Graft Upper Arm (Left) Arterial BP Standing (Pre-Dialysis) 120/65 mmHg BP Standing (P ost-Dialysis) 106/68 mmHg Sitting Heart Rate Pre-Dialysis 62 BPM Sitting Heart Rate Post-Dialysis 71 BPM Standing Heart Rate Pre-Dialysis 63 BPM Standing Heart Rate Post-Dialysis 73 BPM Temperature Pre-Dialysis 98 degF Temperature Post -Dialysis 97.9 degF October 25, 2022 In-Center Hemodialysis Treatment [id number]:16:00.000Z 3710-56-72W78:32:27.000Z BP Sitting (Pre-Dialysis) 131/67 mmHg BP Sitting (Post-Dialysis) 131/80 mmHg Concurrent Access: falseAV Graft Upper Arm (Left) Arterial BP Standing (Pre-Dialysis) 127/71 mmHg BP Standing (P ost-Dialysis) 111/63 mmHg Sitting Heart Rate Pre-Dialysis 64 BPM Sitting Heart Rate Post-Dialysis 65 BPM Standing Heart Rate Pre-Dialysis 63 BPM Standing Heart Rate Post-Dialysis 66 BPM Temperature Pre-Dialysis 97.6 degF Temperature Post -Dialysis 98.2 degF October 23, 2022 In-Center Hemodialysis Treatment [id number]:22:49.000Z 1234-24-19A26:23:39.000Z BP Sitting (Pre-Dialysis) 125/71 mmHg BP Sitting (Post-Dialysis) 113/66 mmHg Concurrent Access: falseAV Graft Upper Arm (Left) Arterial BP Standing (Pre-Dialysis) 121/60 mmHg BP Standing (P ost-Dialysis) 104/61 mmHg Sitting Heart Rate Pre-Dialysis 57 BPM Sitting Heart Rate Post-Dialysis 62 BPM Standing Heart Rate Pre-Dialysis 57 BPM Standing Heart Rate Post-Dialysis 78 BPM Temperature Pre-Dialysis 98.3 degF Temperature Post -Dialysis 97.6 degF October 20, 2022 In-Center Hemodialysis Treatment [id number]:02:58.000Z [id number]:31:43.000Z BP Sitting (Pre-Dialysis) 109/59 mmHg BP Sitting (Post-Dialysis) 101/75 mmHg Concurrent Access: falseAV Graft Upper Arm (Left) Arterial BP Standing (Pre-Dialysis) 116/63 mmHg Sitti ng Heart Rate Post-Dialysis 64 BPM Sitting Heart Rate Pre-Dialysis 64 BPM Temperatu re Post-Dialysis 98.2 degF Standing Heart Rate Pre-Dialysis 79 BPM Temperature Pre-Dialysis 98 degF October 18, 2022 In-Center Hemodialysis Treatment [id number]:22:57.000Z [id number]:22:57.000Z BP Sitting (Pre-Dialysis) 117/73 mmHg BP Sitting (Post-Dialysis) 118/65 mmHg Concurrent Access: falseAV Graft Upper Arm (Left) Arterial BP Standing (Pre-Dialysis) 131/65 mmHg BP Standing (P ost-Dialysis) 117/68 mmHg Sitting Heart Rate Pre-Dialysis 74 BPM Sitting Heart Rate Post-Dialysis 66 BPM Standing Heart Rate Pre-Dialysis 75 BPM Standing Heart Rate Post-Dialysis 72 BPM Temperature Pre-Dialysis 98.3 degF Temperature Post -Dialysis 98.8 degF October 16, 2022 In-Center Hemodialysis Treatment [id number]:05:00.000Z 5926-04-40N35:21:11.000Z BP Sitting (Pre-Dialysis) 124/66 mmHg BP Sitting (Post-Dialysis) 112/58 mmHg Concurrent Access: falseAV Graft Upper Arm (Left) Arterial BP Standing (Pre-Dialysis) 127/68 mmHg Sitti ng Heart Rate Post-Dialysis 61 BPM Sitting Heart Rate Pre-Dialysis 58 BPM Temperatu re Post-Dialysis 97.9 degF Standing Heart Rate Pre-Dialysis 61 BPM Temperature Pre-Dialysis 98 degF October 13, 2022 In-Center Hemodialysis Treatment [id number]:04:00.000Z 6899-13-49W52:00:00.000Z BP Sitting (Pre-Dialysis) 97/55 mmHg BP Sitting (Post-Dialysis) 102/57 mmHg Concurrent Access: falseAV Graft Upper Arm (Left) Arterial BP Standing (Pre-Dialysis) 91/57 mmHg BP Standing (P ost-Dialysis) 135/70 mmHg Sitting Heart Rate Pre-Dialysis 63 BPM Sitting Heart Rate Post-Dialysis 63 BPM Standing Heart Rate Pre-Dialysis 68 BPM Standing Heart Rate Post-Dialysis 62 BPM Temperature Pre-Dialysis 97.3 degF Temperature Post -Dialysis 98.9 degF October 11, 2022 In-Center Hemodialysis Treatment [id number]:09:28.000Z 5024-75-03M43:10:18.000Z BP Sitting (Pre-Dialysis) 127/59 mmHg BP Sitting (Post-Dialysis) 103/57 mmHg Concurrent Access: falseAV Graft Upper Arm (Left) Arterial BP Standing (Pre-Dialysis) 125/61 mmHg BP Standing (P ost-Dialysis) 121/79 mmHg Sitting Heart Rate Pre-Dialysis 61 BPM Sitting Heart Rate Post-Dialysis 66 BPM Standing Heart Rate Pre-Dialysis 68 BPM Standing Heart Rate Post-Dialysis 66 BPM Temperature Pre-Dialysis 97.9 degF Temperature Post -Dialysis 98 degF October 09, 2022 In-Center Hemodialysis Treatment [id number]:21:00.000Z 4517-15-55W91:15:32.000Z BP Sitting (Pre-Dialysis) 99/52 mmHg BP Sitting (Post-Dialysis) 109/66 mmHg Concurrent Access: falseAV Graft Upper Arm (Left) Arterial BP Standing (Pre-Dialysis) 101/53 mmHg BP Standing (P ost-Dialysis) 111/56 mmHg Sitting Heart Rate Pre-Dialysis 58 BPM Sitting Heart Rate Post-Dialysis 63 BPM Standing Heart Rate Pre-Dialysis 70 BPM Standing Heart Rate Post-Dialysis 62 BPM Temperature Pre-Dialysis 97.9 degF Temperature Post -Dialysis 98.2 degF October 06, 2022 In-Center Hemodialysis Treatment [id number]:04:03.000Z [id number]:46:33.000Z BP Sitting (Pre-Dialysis) 124/64 mmHg BP Sitting (Post-Dialysis) 123/36 mmHg Concurrent Access: falseAV Graft Upper Arm (Left) Arterial BP Standing (Pre-Dialysis) 118/60 mmHg BP Standing (P ost-Dialysis) 113/57 mmHg Sitting Heart Rate Pre-Dialysis 69 BPM Sitting Heart Rate Post-Dialysis 68 BPM Standing Heart Rate Pre-Dialysis 70 BPM Standing Heart Rate Post-Dialysis 65 BPM Temperature Pre-Dialysis 97.6 degF Temperature Post -Dialysis 97.8 degF October 04, 2022 In-Center Hemodialysis Treatment [id number]:06:42.000Z [id number]:06:42.000Z BP Sitting (Pre-Dialysis) 107/54 mmHg BP Sitting (Post-Dialysis) 95/51 mmHg Concurrent Access: falseAV Graft Upper Arm (Left) Arterial BP Standing (Pre-Dialysis) 109/58 mmHg BP Standing (P ost-Dialysis) 125/75 mmHg Sitting Heart Rate Pre-Dialysis 63 BPM Sitting Heart Rate Post-Dialysis 61 BPM Standing Heart Rate Pre-Dialysis 64 BPM Standing Heart Rate Post-Dialysis 67 BPM Temperature Pre-Dialysis 98 degF Temperature Post -Dialysis 97.9 degF October 02, 2022 In-Center Hemodialysis Treatment [id number]:07:32.000Z [id number]:07:07.000Z BP Sitting (Pre-Dialysis) 96/53 mmHg BP Sitting (Post-Dialysis) 108/63 mmHg Concurrent Access: falseAV Graft Upper Arm (Left) Arterial BP Standing (Pre-Dialysis) 118/48 mmHg BP Standing (P ost-Dialysis) 103/76 mmHg Sitting Heart Rate Pre-Dialysis 61 BPM Sitting Heart Rate Post-Dialysis 66 BPM Standing Heart Rate Pre-Dialysis 60 BPM Standing Heart Rate Post-Dialysis 65 BPM Temperature Pre-Dialysis 97.8 degF Temperature Post -Dialysis 97.7 degF September 29, 2022 In-Center Hemodialysis Treatment [id number]:06:00.000Z 6213-27-33L61:06:00.000Z BP Sitting (Pre-Dialysis) 126/62 mmHg BP Sitting (Post-Dialysis) 112/62 mmHg Concurrent Access: falseAV Graft Upper Arm (Left) Arterial BP Standing (Pre-Dialysis) 112/61 mmHg BP Standing (P ost-Dialysis) 112/64 mmHg Sitting Heart Rate Pre-Dialysis 71 BPM Sitting Heart Rate Post-Dialysis 63 BPM Standing Heart Rate Pre-Dialysis 73 BPM Standing Heart Rate Post-Dialysis 62 BPM Temperature Pre-Dialysis 97.2 degF Temperature Post -Dialysis 97.6 degF September 27, 2022 In-Center Hemodialysis Treatment [id number]:11:07.000Z [id number]:10:42.000Z BP Sitting (Pre-Dialysis) 102/57 mmHg BP Sitting (Post-Dialysis) 101/47 mmHg Concurrent Access: falseAV Graft Upper Arm (Left) Arterial BP Standing (Pre-Dialysis) 88/51 mmHg BP Standing (P ost-Dialysis) 109/53 mmHg Sitting Heart Rate Pre-Dialysis 65 BPM Sitting Heart Rate Post-Dialysis 71 BPM Standing Heart Rate Pre-Dialysis 67 BPM Standing Heart Rate Post-Dialysis 69 BPM Temperature Pre-Dialysis 97 degF Temperature Post -Dialysis 97.5 degF September 25, 2022 In-Center Hemodialysis Treatment [id number]:49:00.000Z [id number]:33:22.000Z BP Sitting (Pre-Dialysis) 117/63 mmHg BP Sitting (Post-Dialysis) 91/57 mmHg Concurrent Access: falseAV Graft Upper Arm (Left) Arterial BP Standing (Pre-Dialysis) 107/54 mmHg BP Standing (P ost-Dialysis) 112/62 mmHg Sitting Heart Rate Pre-Dialysis 64 BPM Sitting Heart Rate Post-Dialysis 68 BPM Standing Heart Rate Pre-Dialysis 64 BPM Standing Heart Rate Post-Dialysis 69 BPM Temperature Pre-Dialysis 98 degF Temperature Post -Dialysis 98 degF September 22, 2022 In-Center Hemodialysis Treatment [id number]:05:00.000Z [id number]:12:35.000Z BP Sitting (Pre-Dialysis) 125/61 mmHg BP Sitting (Post-Dialysis) 93/56 mmHg Concurrent Access: falseAV Graft Upper Arm (Left) Arterial BP Standing (Pre-Dialysis) 102/61 mmHg BP Standing (P ost-Dialysis) 134/69 mmHg Sitting Heart Rate Pre-Dialysis 68 BPM Sitting Heart Rate Post-Dialysis 71 BPM Standing Heart Rate Pre-Dialysis 73 BPM Standing Heart Rate Post-Dialysis 66 BPM Temperature Pre-Dialysis 98.2 degF Temperature Post -Dialysis 98.2 degF September 20, 2022 In-Center Hemodialysis Treatment 3126-30-95N44:30:00.000Z 9821-38-38W61:30:13.000Z BP Sitting (Pre-Dialysis) 130/74 mmHg BP Sitting (Post-Dialysis) 105/48 mmHg Concurrent Access: falseAV Graft Upper Arm (Left) Arterial BP Standing (Pre-Dialysis) 119/56 mmHg BP Standing (P ost-Dialysis) 121/54 mmHg Sitting Heart Rate Pre-Dialysis 66 BPM Sitting Heart Rate Post-Dialysis 72 BPM Standing Heart Rate Pre-Dialysis 70 BPM Standing Heart Rate Post-Dialysis 70 BPM Temperature Pre-Dialysis 97.2 degF September 18, 2022 In-Center Hemodialysis Treatment 0513-00-05B06:04:00.000Z 2527-29-59Q29:04:00.000Z BP Sitting (Pre-Dialysis) 117/61 mmHg BP Sitting (Post-Dialysis) 101/59 mmHg Concurrent Access: falseAV Graft Upper Arm (Left) Arterial BP Standing (Pre-Dialysis) 109/60 mmHg BP Standing (P ost-Dialysis) 137/63 mmHg Sitting Heart Rate Pre-Dialysis 57 BPM Sitting Heart Rate Post-Dialysis 61 BPM Standing Heart Rate Pre-Dialysis 67 BPM Standing Heart Rate Post-Dialysis 63 BPM Temperature Pre-Dialysis 97.7 degF Temperature Post -Dialysis 98.3 degF September 15, 2022 In-Center Hemodialysis Treatment 1206-03-31O98:45:00.000Z 3469-99-29H24:45:00.000Z BP Sitting (Pre-Dialysis) 131/70 mmHg BP Sitting (Post-Dialysis) 127/59 mmHg Concurrent Access: falseAV Graft Upper Arm (Left) Arterial BP Standing (Pre-Dialysis) 136/71 mmHg BP Standing (P ost-Dialysis) 115/73 mmHg Sitting Heart Rate Pre-Dialysis 66 BPM Sitting Heart Rate Post-Dialysis 63 BPM Standing Heart Rate Pre-Dialysis 72 BPM Standing Heart Rate Post-Dialysis 67 BPM Temperature Pre-Dialysis 97.2 degF Temperature Post -Dialysis 98 degF September 13, 2022 In-Center Hemodialysis Treatment 5912-50-82W73:15:00.000Z 4686-66-22H79:14:00.000Z BP Sitting (Pre-Dialysis) 119/64 mmHg BP Sitting (Post-Dialysis) 110/72 mmHg Concurrent Access: falseAV Graft Upper Arm (Left) Arterial BP Standing (Pre-Dialysis) 118/68 mmHg Sitti ng Heart Rate Post-Dialysis 68 BPM Sitting Heart Rate Pre-Dialysis 64 BPM Temperatu re Post-Dialysis 98.2 degF Standing Heart Rate Pre-Dialysis 66 BPM Temperature Pre-Dialysis 97.5 degF September 11, 2022 In-Center Hemodialysis Treatment [id number]:46:00.000Z 9377-84-68X10:29:00.000Z BP Sitting (Pre-Dialysis) 144/71 mmHg BP Sitting (Post-Dialysis) 100/70 mmHg Concurrent Access: falseAV Graft Upper Arm (Left) Arterial BP Standing (Pre-Dialysis) 138/68 mmHg Sitti ng Heart Rate Post-Dialysis 72 BPM Sitting Heart Rate Pre-Dialysis 69 BPM Temperatu re Post-Dialysis 98.1 degF Standing Heart Rate Pre-Dialysis 73 BPM Temperature Pre-Dialysis 98 degF September 08, 2022 In-Center Hemodialysis Treatment [id number]:17:00.000Z 4353-36-27E64:17:25.000Z BP Sitting (Pre-Dialysis) 134/82 mmHg BP Sitting (Post-Dialysis) 120/71 mmHg Concurrent Access: falseAV Graft Upper Arm (Left) Arterial BP Standing (Pre-Dialysis) 125/67 mmHg BP Standing (P ost-Dialysis) 125/61 mmHg Sitting Heart Rate Pre-Dialysis 68 BPM Sitting Heart Rate Post-Dialysis 69 BPM Standing Heart Rate Pre-Dialysis 70 BPM Standing Heart Rate Post-Dialysis 80 BPM Temperature Pre-Dialysis 98.2 degF Temperature Post -Dialysis 98 degF September 06, 2022 In-Center Hemodialysis Treatment [id number]:19:12.000Z 7022-86-43K32:20:02.000Z BP Sitting (Pre-Dialysis) 130/73 mmHg BP Sitting (Post-Dialysis) 122/60 mmHg Concurrent Access: falseAV Graft Upper Arm (Left) Arterial BP Standing (Pre-Dialysis) 139/70 mmHg BP Standing (P ost-Dialysis) 114/66 mmHg Sitting Heart Rate Pre-Dialysis 63 BPM Sitting Heart Rate Post-Dialysis 63 BPM Standing Heart Rate Pre-Dialysis 63 BPM Standing Heart Rate Post-Dialysis 66 BPM Temperature Pre-Dialysis 98 degF Temperature Post -Dialysis 97.7 degF September 04, 2022 In-Center Hemodialysis Treatment [id number]:10:00.000Z 7548-66-72U11:11:43.000Z BP Sitting (Pre-Dialysis) 115/57 mmHg BP Sitting (Post-Dialysis) 100/59 mmHg Concurrent Access: falseAV Graft Upper Arm (Left) Arterial BP Standing (Pre-Dialysis) 126/61 mmHg BP Standing (P ost-Dialysis) 106/62 mmHg Sitting Heart Rate Pre-Dialysis 59 BPM Sitting Heart Rate Post-Dialysis 67 BPM Standing Heart Rate Pre-Dialysis 63 BPM Standing Heart Rate Post-Dialysis 70 BPM Temperature Pre-Dialysis 97.3 degF Temperature Post -Dialysis 98.6 degF September 01, 2022 In-Center Hemodialysis Treatment [id number]:10:28.000Z 8955-33-12O42:30:28.000Z BP Sitting (Pre-Dialysis) 127/64 mmHg BP Sitting (Post-Dialysis) 111/62 mmHg Concurrent Access: falseAV Graft Upper Arm (Left) Arterial BP Standing (Pre-Dialysis) 121/60 mmHg BP Standing (P ost-Dialysis) 100/53 mmHg Sitting Heart Rate Pre-Dialysis 62 BPM Sitting Heart Rate Post-Dialysis 63 BPM Standing Heart Rate Pre-Dialysis 61 BPM Standing Heart Rate Post-Dialysis 61 BPM Temperature Pre-Dialysis 97.7 degF Temperature Post -Dialysis 98.2 degF August 30, 2022 In-Center Hemodialysis Treatment [id number]:12:18.000Z 3716-21-69T91:07:18.000Z BP Sitting (Pre-Dialysis) 133/70 mmHg BP Sitting (Post-Dialysis) 125/64 mmHg Concurrent Access: falseAV Graft Upper Arm (Left) Arterial BP Standing (Pre-Dialysis) 141/70 mmHg BP Standing (P ost-Dialysis) 112/68 mmHg Sitting Heart Rate Pre-Dialysis 63 BPM Sitting Heart Rate Post-Dialysis 61 BPM Standing Heart Rate Pre-Dialysis 65 BPM Standing Heart Rate Post-Dialysis 65 BPM Temperature Pre-Dialysis 97.7 degF Temperature Post -Dialysis 97.9 degF August 28, 2022 In-Center Hemodialysis Treatment [id number]:14:54.000Z [id number]:15:19.000Z BP Sitting (Pre-Dialysis) 125/61 mmHg BP Sitting (Post-Dialysis) 105/67 mmHg Concurrent Access: falseAV Graft Upper Arm (Left) Arterial BP Standing (Pre-Dialysis) 114/62 mmHg BP Standing (P ost-Dialysis) 111/62 mmHg Sitting Heart Rate Pre-Dialysis 64 BPM Sitting Heart Rate Post-Dialysis 64 BPM Standing Heart Rate Pre-Dialysis 66 BPM Standing Heart Rate Post-Dialysis 62 BPM Temperature Pre-Dialysis 98 degF Temperature Post -Dialysis 98 degF August 25, 2022 In-Center Hemodialysis Treatment [id number]:30:37.000Z [id number]:35:12.000Z BP Sitting (Pre-Dialysis) 120/66 mmHg BP Sitting (Post-Dialysis) 120/76 mmHg Concurrent Access: falseAV Graft Upper Arm (Left) Arterial BP Standing (Pre-Dialysis) 121/77 mmHg BP Standing (P ost-Dialysis) 113/47 mmHg Sitting Heart Rate Pre-Dialysis 62 BPM Sitting Heart Rate Post-Dialysis 64 BPM Standing Heart Rate Pre-Dialysis 65 BPM Standing Heart Rate Post-Dialysis 72 BPM Temperature Pre-Dialysis 97.6 degF Temperature Post -Dialysis 97.3 degF August 23, 2022 In-Center Hemodialysis Treatment 7743-56-14S79:18:00.000Z 2353-98-94W64:16:02.000Z BP Sitting (Pre-Dialysis) 133/68 mmHg BP Sitting (Post-Dialysis) 130/73 mmHg Concurrent Access: falseAV Graft Upper Arm (Left) Arterial BP Standing (Pre-Dialysis) 123/61 mmHg BP Standing (P ost-Dialysis) 125/74 mmHg Sitting Heart Rate Pre-Dialysis 65 BPM Sitting Heart Rate Post-Dialysis 73 BPM Standing Heart Rate Pre-Dialysis 66 BPM Standing Heart Rate Post-Dialysis 72 BPM Temperature Pre-Dialysis 98.4 degF Temperature Post -Dialysis 97.7 degF August 21, 2022 In-Center Hemodialysis Treatment [id number]:13:17.000Z [id number]:13:17.000Z BP Sitting (Pre-Dialysis) 112/86 mmHg BP Sitting (Post-Dialysis) 137/67 mmHg Concurrent Access: falseAV Graft Upper Arm (Left) Arterial BP Standing (Pre-Dialysis) 129/66 mmHg BP Standing (P ost-Dialysis) 115/67 mmHg Sitting Heart Rate Pre-Dialysis 71 BPM Sitting Heart Rate Post-Dialysis 66 BPM Standing Heart Rate Pre-Dialysis 66 BPM Standing Heart Rate Post-Dialysis 67 BPM Temperature Pre-Dialysis 98.2 degF Temperature Post -Dialysis 98.7 degF August 18, 2022 In-Center Hemodialysis Treatment [id number]:13:37.000Z [id number]:33:12.000Z BP Sitting (Pre-Dialysis) 127/67 mmHg BP Sitting (Post-Dialysis) 128/55 mmHg Concurrent Access: falseAV Graft Upper Arm (Left) Arterial Sitting Heart Rate Pre-Dialysis 63 BPM Sitting H eart Rate Post-Dialysis 61 BPM Temperature Pre-Dialysis 97.8 degF Temperature Post -Dialysis 97 degF August 16, 2022 In-Center Hemodialysis Treatment [id number]:13:00.000Z [id number]:14:03.000Z BP Sitting (Pre-Dialysis) 122/63 mmHg BP Sitting (Post-Dialysis) 104/61 mmHg Concurrent Access: falseAV Graft Upper Arm (Left) Arterial BP Standing (Pre-Dialysis) 121/64 mmHg Sitti ng Heart Rate Post-Dialysis 63 BPM Sitting Heart Rate Pre-Dialysis 63 BPM Temperatu re Post-Dialysis 97.2 degF Standing Heart Rate Pre-Dialysis 62 BPM Temperature Pre-Dialysis 97.2 degF August 14, 2022 In-Center Hemodialysis Treatment [id number]:08:00.000Z [id number]:10:43.000Z BP Sitting (Pre-Dialysis) 124/59 mmHg BP Sitting (Post-Dialysis) 104/58 mmHg Concurrent Access: falseAV Graft Upper Arm (Left) Arterial BP Standing (Pre-Dialysis) 124/71 mmHg BP Standing (P ost-Dialysis) 121/73 mmHg Sitting Heart Rate Pre-Dialysis 61 BPM Sitting Heart Rate Post-Dialysis 63 BPM Standing Heart Rate Pre-Dialysis 64 BPM Standing Heart Rate Post-Dialysis 70 BPM Temperature Pre-Dialysis 98.1 degF Temperature Post -Dialysis 97.3 degF August 11, 2022 In-Center Hemodialysis Treatment [id number]:28:25.000Z [id number]:28:00.000Z BP Sitting (Pre-Dialysis) 136/73 mmHg BP Sitting (Post-Dialysis) 116/54 mmHg Concurrent Access: falseAV Graft Upper Arm (Left) Arterial BP Standing (Pre-Dialysis) 148/70 mmHg BP Standing (P ost-Dialysis) 103/54 mmHg Sitting Heart Rate Pre-Dialysis 59 BPM Sitting Heart Rate Post-Dialysis 65 BPM Standing Heart Rate Pre-Dialysis 68 BPM Standing Heart Rate Post-Dialysis 67 BPM Temperature Pre-Dialysis 97.8 degF Temperature Post -Dialysis 98.3 degF August 09, 2022 In-Center Hemodialysis Treatment [id number]:12:00.000Z [id number]:31:13.000Z BP Sitting (Pre-Dialysis) 126/67 mmHg BP Sitting (Post-Dialysis) 117/59 mmHg Concurrent Access: falseAV Graft Upper Arm (Left) Arterial BP Standing (Pre-Dialysis) 124/71 mmHg BP Standing (P ost-Dialysis) 117/66 mmHg Sitting Heart Rate Pre-Dialysis 63 BPM Sitting Heart Rate Post-Dialysis 65 BPM Standing Heart Rate Pre-Dialysis 64 BPM Standing Heart Rate Post-Dialysis 65 BPM Temperature Pre-Dialysis 97.3 degF Temperature Post -Dialysis 97.2 degF August 07, 2022 In-Center Hemodialysis Treatment [id number]:06:27.000Z [id number]:37:17.000Z BP Sitting (Pre-Dialysis) 136/69 mmHg BP Sitting (Post-Dialysis) 122/62 mmHg Concurrent Access: falseAV Graft Upper Arm (Left) Arterial BP Standing (Pre-Dialysis) 132/70 mmHg BP Standing (P ost-Dialysis) 102/64 mmHg Sitting Heart Rate Pre-Dialysis 65 BPM Sitting Heart Rate Post-Dialysis 67 BPM Standing Heart Rate Pre-Dialysis 70 BPM Standing Heart Rate Post-Dialysis 71 BPM Temperature Pre-Dialysis 97.4 degF Temperature Post -Dialysis 97.6 degF August 04, 2022 In-Center Hemodialysis Treatment [id number]:16:00.000Z [id number]:52:50.000Z BP Sitting (Pre-Dialysis) 118/63 mmHg BP Sitting (Post-Dialysis) 115/64 mmHg Concurrent Access: falseAV Graft Upper Arm (Left) Arterial BP Standing (Pre-Dialysis) 111/69 mmHg BP Standing (P ost-Dialysis) 113/70 mmHg Sitting Heart Rate Pre-Dialysis 61 BPM Sitting Heart Rate Post-Dialysis 65 BPM Standing Heart Rate Pre-Dialysis 86 BPM Standing Heart Rate Post-Dialysis 66 BPM Temperature Pre-Dialysis 97.5 degF Temperature Post -Dialysis 98 degF August 02, 2022 In-Center Hemodialysis Treatment [id number]:05:28.000Z [id number]:31:43.000Z BP Sitting (Pre-Dialysis) 123/64 mmHg BP Sitting (Post-Dialysis) 114/59 mmHg Concurrent Access: falseAV Graft Upper Arm (Left) Arterial BP Standing (Pre-Dialysis) 128/59 mmHg BP Standing (P ost-Dialysis) 107/69 mmHg Sitting Heart Rate Pre-Dialysis 61 BPM Sitting Heart Rate Post-Dialysis 64 BPM Standing Heart Rate Pre-Dialysis 68 BPM Standing Heart Rate Post-Dialysis 70 BPM Temperature Pre-Dialysis 97.6 degF Temperature Post -Dialysis 97.6 degF July 31, 2022 In-Center Hemodialysis Treatment [id number]:07:00.000Z [id number]:07:59.000Z BP Sitting (Pre-Dialysis) 131/61 mmHg BP Sitting (Post-Dialysis) 105/52 mmHg Concurrent Access: falseAV Graft Upper Arm (Left) Arterial BP Standing (Pre-Dialysis) 115/73 mmHg BP Standing (P ost-Dialysis) 112/81 mmHg Sitting Heart Rate Pre-Dialysis 63 BPM Sitting Heart Rate Post-Dialysis 67 BPM Standing Heart Rate Pre-Dialysis 65 BPM Standing Heart Rate Post-Dialysis 67 BPM Temperature Pre-Dialysis 98.3 degF Temperature Post -Dialysis 98.8 degF July 28, 2022 In-Center Hemodialysis Treatment [id number]:07:00.000Z [id number]:09:05.000Z BP Sitting (Pre-Dialysis) 130/37 mmHg BP Sitting (Post-Dialysis) 118/67 mmHg Concurrent Access: falseAV Graft Upper Arm (Left) Arterial BP Standing (Pre-Dialysis) 134/68 mmHg BP Standing (P ost-Dialysis) 104/62 mmHg Sitting Heart Rate Pre-Dialysis 61 BPM Sitting Heart Rate Post-Dialysis 62 BPM Standing Heart Rate Pre-Dialysis 60 BPM Standing Heart Rate Post-Dialysis 66 BPM Temperature Pre-Dialysis 97.3 degF Temperature Post -Dialysis 97.6 degF July 26, 2022 In-Center Hemodialysis Treatment [id number]:15:00.000Z [id number]:16:17.000Z BP Sitting (Pre-Dialysis) 127/67 mmHg BP Sitting (Post-Dialysis) 117/67 mmHg Concurrent Access: falseAV Graft Upper Arm (Left) Arterial BP Standing (Pre-Dialysis) 132/69 mmHg BP Standing (P ost-Dialysis) 108/54 mmHg Sitting Heart Rate Pre-Dialysis 64 BPM Sitting Heart Rate Post-Dialysis 62 BPM Standing Heart Rate Pre-Dialysis 65 BPM Standing Heart Rate Post-Dialysis 70 BPM Temperature Pre-Dialysis 97.5 degF Temperature Post -Dialysis 98.2 degF July 24, 2022 In-Center Hemodialysis Treatment [id number]:02:00.000Z [id number]:04:56.000Z BP Sitting (Pre-Dialysis) 139/71 mmHg BP Sitting (Post-Dialysis) 115/66 mmHg Concurrent Access: falseAV Graft Upper Arm (Left) Arterial BP Standing (Pre-Dialysis) 137/68 mmHg BP Standing (P ost-Dialysis) 133/59 mmHg Sitting Heart Rate Pre-Dialysis 60 BPM Sitting Heart Rate Post-Dialysis 70 BPM Standing Heart Rate Pre-Dialysis 64 BPM Standing Heart Rate Post-Dialysis 73 BPM Temperature Pre-Dialysis 97.6 degF Temperature Post -Dialysis 97.6 degF July 21, 2022 In-Center Hemodialysis Treatment [id number]:13:00.000Z [id number]:13:12.000Z BP Sitting (Pre-Dialysis) 138/68 mmHg BP Sitting (Post-Dialysis) 133/68 mmHg Concurrent Access: falseAV Graft Upper Arm (Left) Arterial BP Standing (Pre-Dialysis) 133/69 mmHg BP Standing (P ost-Dialysis) 127/72 mmHg Sitting Heart Rate Pre-Dialysis 60 BPM Sitting Heart Rate Post-Dialysis 64 BPM Standing Heart Rate Pre-Dialysis 62 BPM Standing Heart Rate Post-Dialysis 68 BPM Temperature Pre-Dialysis 98 degF July 19, 2022 In-Center Hemodialysis Treatment [id number]:18:00.000Z [id number]:19:05.000Z BP Sitting (Pre-Dialysis) 130/75 mmHg BP Sitting (Post-Dialysis) 110/62 mmHg Concurrent Access: falseAV Graft Upper Arm (Left) Arterial BP Standing (Pre-Dialysis) 142/65 mmHg BP Standing (P ost-Dialysis) 107/93 mmHg Sitting Heart Rate Pre-Dialysis 59 BPM Sitting Heart Rate Post-Dialysis 66 BPM Standing Heart Rate Pre-Dialysis 60 BPM Standing Heart Rate Post-Dialysis 67 BPM Temperature Pre-Dialysis 98.2 degF Temperature Post -Dialysis 97.3 degF July 17, 2022 In-Center Hemodialysis Treatment [id number]:02:00.000Z [id number]:05:37.000Z BP Sitting (Pre-Dialysis) 130/61 mmHg BP Sitting (Post-Dialysis) 106/55 mmHg Concurrent Access: falseAV Graft Upper Arm (Left) Arterial BP Standing (Pre-Dialysis) 119/62 mmHg BP Standing (P ost-Dialysis) 127/68 mmHg Sitting Heart Rate Pre-Dialysis 66 BPM Sitting Heart Rate Post-Dialysis 67 BPM Standing Heart Rate Pre-Dialysis 64 BPM Standing Heart Rate Post-Dialysis 70 BPM Temperature Pre-Dialysis 97.3 degF Temperature Post -Dialysis 98 degF July 15, 2022 In-Center Hemodialysis Treatment [id number]:01:00.000Z [id number]:04:48.000Z BP Sitting (Pre-Dialysis) 133/79 mmHg BP Sitting (Post-Dialysis) 107/58 mmHg Concurrent Access: falseAV Graft Upper Arm (Left) Arterial BP Standing (Pre-Dialysis) 130/63 mmHg BP Standing (P ost-Dialysis) 139/78 mmHg Sitting Heart Rate Pre-Dialysis 64 BPM Sitting Heart Rate Post-Dialysis 67 BPM Standing Heart Rate Pre-Dialysis 68 BPM Standing Heart Rate Post-Dialysis 73 BPM Temperature Pre-Dialysis 97.3 degF Temperature Post -Dialysis 97.3 degF July 14, 2022 In-Center Hemodialysis Treatment 400 mL/min 500 mL/min Concurrent Access: false July 12, 2022 In-Center Hemodialysis Treatment 20 23 -0 - T1 1: 28 :0 0. 00 0Z 20 23 -0 - 11 T1 4: 47 :1 4. 00 0Z BP Sitting (Pre-Dial ysis) 137/84 mmHg BP Sitting (Post-Cate lysis) 126/68 mmHg Concurrent Access: falseAV Graft Upper Arm (Left) Arterial BP Standing (Pre-Dialysis) 133/69 mmHg BP Standing (P ost-Dialysis) 110/62 mmHg Sitting Heart Rate Pre-Dialysis 71 BPM Sitting Heart Rate Post-Dialysis 69 BPM Standing Heart Rate Pre-Dialysis 68 BPM Standing Heart Rate Post-Dialysis 73 BPM Temperature Pre-Dialysis 97.3 degF Temperature Post -Dialysis 97.4 degF July 10, 2022 In-Center Hemodialysis Treatment [id number]:07:00.000Z [id number]:10:14.000Z BP Sitting (Pre-Dialysis) 145/69 mmHg BP Sitting (Post-Dialysis) 130/66 mmHg Concurrent Access: falseAV Graft Upper Arm (Left) Arterial BP Standing (Pre-Dialysis) 145/78 mmHg BP Standing (P ost-Dialysis) 102/62 mmHg Sitting Heart Rate Pre-Dialysis 61 BPM Sitting Heart Rate Post-Dialysis 69 BPM Standing Heart Rate Pre-Dialysis 63 BPM Standing Heart Rate Post-Dialysis 78 BPM Temperature Pre-Dialysis 97.7 degF Temperature Post -Dialysis 98 degF July 08, 2022 In-Center Hemodialysis Treatment [id number]:57:00.000Z [id number]:00:11.000Z BP Sitting (Pre-Dialysis) 140/66 mmHg BP Sitting (Post-Dialysis) 121/67 mmHg Concurrent Access: falseAV Graft Upper Arm (Left) Arterial BP Standing (Pre-Dialysis) 139/70 mmHg BP Standing (P ost-Dialysis) 109/64 mmHg Sitting Heart Rate Pre-Dialysis 57 BPM Sitting Heart Rate Post-Dialysis 64 BPM Standing Heart Rate Pre-Dialysis 63 BPM Standing Heart Rate Post-Dialysis 69 BPM Temperature Pre-Dialysis 97.2 degF Temperature Post -Dialysis 97.6 degF July 05, 2022 In-Center Hemodialysis Treatment [id number]:21:00.000Z [id number]:26:07.000Z BP Sitting (Pre-Dialysis) 135/71 mmHg BP Sitting (Post-Dialysis) 105/62 mmHg Concurrent Access: falseAV Graft Upper Arm (Left) Arterial BP Standing (Pre-Dialysis) 128/69 mmHg BP Standing (P ost-Dialysis) 106/59 mmHg Sitting Heart Rate Pre-Dialysis 67 BPM Sitting Heart Rate Post-Dialysis 69 BPM Standing Heart Rate Pre-Dialysis 69 BPM Standing Heart Rate Post-Dialysis 70 BPM Temperature Pre-Dialysis 97.8 degF Temperature Post -Dialysis 98.7 degF July 03, 2022 In-Center Hemodialysis Treatment [id number]:10:00.000Z [id number]:11:16.000Z BP Sitting (Pre-Dialysis) 138/60 mmHg BP Sitting (Post-Dialysis) 117/67 mmHg Concurrent Access: falseAV Graft Upper Arm (Left) Arterial BP Standing (Pre-Dialysis) 136/65 mmHg BP Standing (P ost-Dialysis) 110/56 mmHg Sitting Heart Rate Pre-Dialysis 61 BPM Sitting Heart Rate Post-Dialysis 66 BPM Standing Heart Rate Pre-Dialysis 62 BPM Standing Heart Rate Post-Dialysis 66 BPM Temperature Pre-Dialysis 98.2 degF Temperature Post -Dialysis 98 degF June 30, 2022 In-Center Hemodialysis Treatment [id number]:05:00.000Z [id number]:08:06.000Z BP Sitting (Pre-Dialysis) 144/69 mmHg BP Sitting (Post-Dialysis) 117/61 mmHg Concurrent Access: falseAV Graft Upper Arm (Left) Arterial BP Standing (Pre-Dialysis) 146/74 mmHg BP Standing (P ost-Dialysis) 133/66 mmHg Sitting Heart Rate Pre-Dialysis 64 BPM Sitting Heart Rate Post-Dialysis 65 BPM Standing Heart Rate Pre-Dialysis 64 BPM Standing Heart Rate Post-Dialysis 66 BPM Temperature Pre-Dialysis 98 degF Temperature Post -Dialysis 99 degF June 28, 2022 In-Center Hemodialysis Treatment [id number]:17:56.000Z [id number]:34:11.000Z BP Sitting (Pre-Dialysis) 130/69 mmHg BP Sitting (Post-Dialysis) 126/81 mmHg Concurrent Access: falseAV Graft Upper Arm (Left) Arterial BP Standing (Pre-Dialysis) 129/64 mmHg BP Standing (P ost-Dialysis) 114/64 mmHg Sitting Heart Rate Pre-Dialysis 67 BPM Sitting Heart Rate Post-Dialysis 69 BPM Standing Heart Rate Pre-Dialysis 63 BPM Standing Heart Rate Post-Dialysis 74 BPM Temperature Pre-Dialysis 97.6 degF Temperature Post -Dialysis 98.2 degF June 26, 2022 In-Center Hemodialysis Treatment [id number]:12:00.000Z [id number]:13:16.000Z BP Sitting (Pre-Dialysis) 144/75 mmHg BP Sitting (Post-Dialysis) 133/73 mmHg Concurrent Access: falseAV Graft Upper Arm (Left) Arterial BP Standing (Pre-Dialysis) 147/75 mmHg BP Standing (P ost-Dialysis) 123/75 mmHg Sitting Heart Rate Pre-Dialysis 65 BPM Sitting Heart Rate Post-Dialysis 64 BPM Standing Heart Rate Pre-Dialysis 66 BPM Standing Heart Rate Post-Dialysis 67 BPM Temperature Pre-Dialysis 96.6 degF Temperature Post -Dialysis 97.3 degF June 23, 2022 In-Center Hemodialysis Treatment [id number]:08:00.000Z [id number]:09:44.000Z BP Sitting (Pre-Dialysis) 149/78 mmHg BP Sitting (Post-Dialysis) 129/69 mmHg Concurrent Access: falseAV Graft Upper Arm (Left) Arterial BP Standing (Pre-Dialysis) 167/82 mmHg BP Standing (P ost-Dialysis) 119/71 mmHg Sitting Heart Rate Pre-Dialysis 63 BPM Sitting Heart Rate Post-Dialysis 64 BPM Standing Heart Rate Pre-Dialysis 70 BPM Standing Heart Rate Post-Dialysis 65 BPM Temperature Pre-Dialysis 97.3 degF Temperature Post -Dialysis 98.3 degF June 21, 2022 In-Center Hemodialysis Treatment [id number]:23:29.000Z [id number]:48:54.000Z BP Sitting (Pre-Dialysis) 149/73 mmHg BP Sitting (Post-Dialysis) 127/65 mmHg Concurrent Access: falseAV Graft Upper Arm (Left) Arterial BP Standing (Pre-Dialysis) 154/78 mmHg BP Standing (P ost-Dialysis) 114/67 mmHg Sitting Heart Rate Pre-Dialysis 60 BPM Sitting Heart Rate Post-Dialysis 66 BPM Standing Heart Rate Pre-Dialysis 60 BPM Standing Heart Rate Post-Dialysis 67 BPM Temperature Pre-Dialysis 97.6 degF Temperature Post -Dialysis 98.1 degF June 19, 2022 In-Center Hemodialysis Treatment [id number]:16:00.000Z [id number]:26:41.000Z BP Sitting (Pre-Dialysis) 137/73 mmHg BP Sitting (Post-Dialysis) 133/68 mmHg Concurrent Access: falseAV Graft Upper Arm (Left) Arterial BP Standing (Pre-Dialysis) 148/67 mmHg BP Standing (P ost-Dialysis) 108/62 mmHg Sitting Heart Rate Pre-Dialysis 61 BPM Sitting Heart Rate Post-Dialysis 66 BPM Standing Heart Rate Pre-Dialysis 61 BPM Standing Heart Rate Post-Dialysis 67 BPM Temperature Pre-Dialysis 97.1 degF Temperature Post -Dialysis 98.2 degF June 16, 2022 In-Center Hemodialysis Treatment [id number]:27:00.000Z [id number]:43:59.000Z BP Sitting (Pre-Dialysis) 143/75 mmHg BP Sitting (Post-Dialysis) 139/70 mmHg Concurrent Access: falseAV Graft Upper Arm (Left) Arterial BP Standing (Pre-Dialysis) 139/69 mmHg BP Standing (P ost-Dialysis) 128/72 mmHg Sitting Heart Rate Pre-Dialysis 61 BPM Sitting Heart Rate Post-Dialysis 63 BPM Standing Heart Rate Pre-Dialysis 62 BPM Standing Heart Rate Post-Dialysis 70 BPM Temperature Pre-Dialysis 97.8 degF Temperature Post -Dialysis 97.3 degF June 14, 2022 In-Center Hemodialysis Treatment [id number]:04:00.000Z [id number]:05:13.000Z BP Sitting (Pre-Dialysis) 146/73 mmHg BP Sitting (Post-Dialysis) 136/66 mmHg Concurrent Access: falseAV Graft Upper Arm (Left) Arterial BP Standing (Pre-Dialysis) 134/69 mmHg BP Standing (P ost-Dialysis) 119/62 mmHg Sitting Heart Rate Pre-Dialysis 63 BPM Sitting Heart Rate Post-Dialysis 63 BPM Standing Heart Rate Pre-Dialysis 79 BPM Standing Heart Rate Post-Dialysis 67 BPM Temperature Pre-Dialysis 98.1 degF Temperature Post -Dialysis 97.9 degF June 12, 2022 In-Center Hemodialysis Treatment [id number]:32:40.000Z [id number]:41:01.000Z BP Sitting (Pre-Dialysis) 124/71 mmHg BP Sitting (Post-Dialysis) 126/66 mmHg Concurrent Access: falseAV Graft Upper Arm (Left) Arterial BP Standing (Pre-Dialysis) 145/71 mmHg BP Standing (P ost-Dialysis) 124/70 mmHg Sitting Heart Rate Pre-Dialysis 63 BPM Sitting Heart Rate Post-Dialysis 63 BPM Standing Heart Rate Pre-Dialysis 61 BPM Standing Heart Rate Post-Dialysis 68 BPM Temperature Pre-Dialysis 97.8 degF Temperature Post -Dialysis 98 degF DIALYSIS ORDER Dialysis Procedure Orders Type of Dialysis Procedure Order Order Date/Time Observations In-Center Hemodialysis Treatment July 28, 2024 Target Weight 76 kg Dialysate Flow Rate 500 mL/min Blood Flow Rate 400 mL/min Treatment Time 240 min(total) Max UF Rate 13 mL/kg/hr Base Sodium Dialysate Base Sodium 140 mE q/L dialysate_temp 37 C BiCarb Dialysate BiCarbonate 37 mEq/L Access Concurrent No Arterial Access AV Graft (Upper Arm (Left)) Venous Access AV Graft (Upper Arm (Left)) Arterial Needle Display NIPRO, TULIP, 15 G x 1 , SHARP , TWIN Venous Needle NIPRO, TULIP, 15G x 1 , SHARP , TWIN Dialyzer Nipro Elisio 15H 126 4 [email or web address] Dialysate Bath Potassium Potassium 3 mEq /L Dialysate Bath Calcium Calcium 2.5 mEq/L Results Adequacy Description Draw Date Result/Unit Status Ref Range Result Comments spKt/V 2024-08-09 00:42:25 1.55 F TBW ([facility]) 2024-08-09 00:42:25 41.57 Liters F VM (KT/V MEAN VOL) 2024-08-09 00:42:25 42.5 F WEIGHT - PRE DAY 1 2024-08-09 00:42:25 76.4 kg F TOTAL HOURS/WEEK DIALYSIS 2024-08-09 00:42:25 11 hrs F LENGTH OF DIALYSIS 2024-08-09 00:42:25 239 min F Total Kt/V 2024-08-09 00:42:25 1.55 F WEIGHT - POST DAY 1 2024-08-09 00:42:25 76 kg F nPCR 2024-08-09 00:42:25 1.94 G/KG/D F CURRENT KRU 2024-08-09 00:42:25 F HEIGHT IN INCHES 2024-08-09 00:42:25 70 Inches F Dialyzer RUBY 2024-08-09 00:42:25 1264 Calc F Std Renal KT/V 2024-08-09 00:42:25 N/A F BLOOD FLOW-QWB 2024-08-09 00:42:25 364 F DIALYZER FLOW-QD 2024-08-09 00:42:25 500 mL/min F AMPUTATE FACTOR 2024-08-09 00:42:25 0 F stdKt/V (DIAL) 2024-08-09 00:42:25 N/A F PATIENT AGE 2024-08-09 00:42:25 58 Years F BSA DIYA 2024-08-09 00:42:25 1.94 sq m F KT/V PRESCRIBED 2024-08-09 00:42:25 1.86 F URR% 2024-08-09 00:42:25 72 % F stdKT/V Total 2024-08-09 00:42:25 N/A F PRESCRIBED DAYS/WEEK 2024-08-09 00:42:25 3 Day/Wk F VT (KT/V TX VOL) 2024-08-09 00:42:25 39.8 L F Residual kt/v 2024-08-09 00:42:25 F eKt/V 2024-08-09 00:42:25 1.34 F WEIGHT (KG) 2024-08-09 00:42:25 76 kg F Urea nitrogen [Mass/volume] in Serum or Plasma 2024-08-09 00:40:21 57 mg/dL F 9.0-23.0 Urea nitrogen [Mass/volume] in Serum or Plasma --post dialysis 2024-08-08 15:26:18 16 mg/dL F 9.0-23.0 Creatinine [Mass/volume] in Serum or Plasma 2024-07-24 15:06:20 7.31 mg/dL F 0.7-1.3 VT (KT/V TX VOL) 2024-07-11 15:20:12 46.4 L F AMPUTATE FACTOR 2024-07-11 15:20:12 0 F WEIGHT (KG) 2024-07-11 15:20:12 76 kg F VM (KT/V MEAN VOL) 2024-07-11 15:20:12 43.4 F CURRENT KRU 2024-07-11 15:20:12 F URR% 2024-07-11 15:20:12 68 % F KT/V PRESCRIBED 2024-07-11 15:20:12 1.63 F Std Renal KT/V 2024-07-11 15:20:12 N/A F eKt/V 2024-07-11 15:20:12 1.03 F HEIGHT IN INCHES 2024-07-11 15:20:12 70 Inches F nPCR 2024-07-11 15:20:12 0.87 G/KG/D F WEIGHT - POST DAY 1 2024-07-11 15:20:12 77.8 kg F stdKT/V Total 2024-07-11 15:20:12 N/A F stdKt/V (DIAL) 2024-07-11 15:20:12 N/A F spKt/V 2024-07-11 15:20:12 1.2 F PRESCRIBED DAYS/WEEK 2024-07-11 15:20:12 3 Day/Wk F TOTAL HOURS/WEEK DIALYSIS 2024-07-11 15:20:12 11 hrs F Total Kt/V 2024-07-11 15:20:12 1.2 F LENGTH OF DIALYSIS 2024-07-11 15:20:12 209 min F BSA DIYA 2024-07-11 15:20:12 1.94 sq m F TBW ([facility]) 2024-07-11 15:20:12 42.18 Liters F DIALYZER FLOW-QD 2024-07-11 15:20:12 500 mL/min F PATIENT AGE 2024-07-11 15:20:12 58 Years F BLOOD FLOW-QWB 2024-07-11 15:20:12 392 F Dialyzer RUBY 2024-07-11 15:20:12 1264 Calc F Residual kt/v 2024-07-11 15:20:12 F WEIGHT - PRE DAY 1 2024-07-11 15:20:12 77.9 kg F Urea nitrogen [Mass/volume] in Serum or Plasma --post dialysis 2024-07-11 15:18:25 22 mg/dL F 9.0-23.0 Urea nitrogen [Mass/volume] in Serum or Plasma 2024-07-11 15:14:21 68 mg/dL F 9.0-23.0 VT (KT/V TX VOL) 2024-07-10 21:04:17 43.4 L F WEIGHT (KG) 2024-07-10 21:04:17 76 kg F spKt/V 2024-07-10 21:04:17 1.42 F AMPUTATE FACTOR 2024-07-10 21:04:17 0 F CURRENT KRU 2024-07-10 21:04:17 F stdKT/V Total 2024-07-10 21:04:17 N/A F Std Renal KT/V 2024-07-10 21:04:17 N/A F WEIGHT - POST DAY 1 2024-07-10 21:04:17 75.7 kg F LENGTH OF DIALYSIS 2024-07-10 21:04:17 234 min F Residual kt/v 2024-07-10 21:04:17 F eKt/V 2024-07-10 21:04:17 1.22 F BSA DIYA 2024-07-10 21:04:17 1.94 sq m F BLOOD FLOW-QWB 2024-07-10 21:04:17 377 F KT/V PRESCRIBED 2024-07-10 21:04:17 1.83 F PRESCRIBED DAYS/WEEK 2024-07-10 21:04:17 3 Day/Wk F VM (KT/V MEAN VOL) 2024-07-10 21:04:17 42.4 F DIALYZER FLOW-QD 2024-07-10 21:04:17 500 mL/min F HEIGHT IN INCHES 2024-07-10 21:04:17 70 Inches F TBW ([place]) 2024-07-10 21:04:17 41.47 Liters F Dialyzer RUBY 2024-07-10 21:04:17 1264 Calc F PATIENT AGE 2024-07-10 21:04:17 58 Years F TOTAL HOURS/WEEK DIALYSIS 2024-07-10 21:04:17 11 hrs F nPCR 2024-07-10 21:04:17 0.87 G/KG/D F WEIGHT - PRE DAY 1 2024-07-10 21:04:17 77.8 kg F stdKt/V (DIAL) 2024-07-10 21:04:17 N/A F Total Kt/V 2024-07-10 21:04:17 1.42 F URR% 2024-07-10 21:04:17 71 % F Urea nitrogen [Mass/volume] in Serum or Plasma --post dialysis 2024-07-10 20:40:10 17 mg/dL F 9.0-23.0 Urea nitrogen [Mass/volume] in Serum or Plasma 2024-07-10 20:26:26 59 mg/dL F 9.0-23.0 Creatinine [Mass/volume] in Serum or Plasma 2024-06-22 00:54:16 9.68 mg/dL F 0.7-1.3 Residual kt/v 2024-06-17 17:42:22 F TOTAL HOURS/WEEK DIALYSIS 2024-06-17 17:42:22 3 hrs F KT/V PRESCRIBED 2024-06-17 17:42:22 1.65 F BLOOD FLOW-QWB 2024-06-17 17:42:22 400 F DIALYZER FLOW-QD 2024-06-17 17:42:22 500 mL/min F PRESCRIBED DAYS/WEEK 2024-06-17 17:42:22 3 Day/Wk F Dialyzer RUBY 2024-06-17 17:42:22 1264 Calc F AMPUTATE FACTOR 2024-06-17 17:42:22 0 F spKt/V 2024-06-17 17:42:22 1.26 F BSA DIYA 2024-06-17 17:42:22 1.94 sq m F PATIENT AGE 2024-06-17 17:42:22 58 Years F Total Kt/V 2024-06-17 17:42:22 1.26 F WEIGHT - POST DAY 1 2024-06-17 17:42:22 76.1 kg F eKt/V 2024-06-17 17:42:22 1.08 F HEIGHT IN INCHES 2024-06-17 17:42:22 70 Inches F URR% 2024-06-17 17:42:22 71 % F VM (KT/V MEAN VOL) 2024-06-17 17:42:22 42.1 F VT (KT/V TX VOL) 2024-06-17 17:42:22 44.9 L F stdKT/V Total 2024-06-17 17:42:22 N/A F LENGTH OF DIALYSIS 2024-06-17 17:42:22 211 min F Std Renal KT/V 2024-06-17 17:42:22 N/A F CURRENT KRU 2024-06-17 17:42:22 F stdKt/V (DIAL) 2024-06-17 17:42:22 N/A F nPCR 2024-06-17 17:42:22 0.34 G/KG/D F WEIGHT - PRE DAY 1 2024-06-17 17:42:22 76.2 kg F WEIGHT (KG) 2024-06-17 17:42:22 76 kg F TBW ([place]) 2024-06-17 17:42:22 41.61 Liters F Urea nitrogen [Mass/volume] in Serum or Plasma 2024-06-17 17:36:16 41 mg/dL F 9.0-23.0 Urea nitrogen [Mass/volume] in Serum or Plasma --post dialysis 2024-06-17 16:11:18 12 mg/dL F 9.0-23.0 WEIGHT - PRE DAY 1 2024-06-07 01:19:09 75.9 kg F stdKt/V (DIAL) 2024-06-07 01:19:09 N/A F Dialyzer RUBY 2024-06-07 01:19:09 1264 Calc F VT (KT/V TX VOL) 2024-06-07 01:19:09 39 L F TOTAL HOURS/WEEK DIALYSIS 2024-06-07 01:19:09 10 hrs F nPCR 2024-06-07 01:19:09 0.91 G/KG/D F VM (KT/V MEAN VOL) 2024-06-07 01:19:09 41.1 F Total Kt/V 2024-06-07 01:19:09 1.16 F URR% 2024-06-07 01:19:09 66 % F PATIENT AGE 2024-06-07 01:19:09 58 Years F PRESCRIBED DAYS/WEEK 2024-06-07 01:19:09 3 Day/Wk F HEIGHT IN INCHES 2024-06-07 01:19:09 70 Inches F stdKT/V Total 2024-06-07 01:19:09 N/A F BLOOD FLOW-QWB 2024-06-07 01:19:09 364 F spKt/V 2024-06-07 01:19:09 1.16 F TBW ([facility]) 2024-06-07 01:19:09 41.47 Liters F Std Renal KT/V 2024-06-07 01:19:09 N/A F DIALYZER FLOW-QD 2024-06-07 01:19:09 500 mL/min F BSA DIYA 2024-06-07 01:19:09 1.94 sq m F AMPUTATE FACTOR 2024-06-07 01:19:09 0 F WEIGHT (KG) 2024-06-07 01:19:09 76 kg F Residual kt/v 2024-06-07 01:19:09 F CURRENT KRU 2024-06-07 01:19:09 F eKt/V 2024-06-07 01:19:09 0.98 F KT/V PRESCRIBED 2024-06-07 01:19:09 1.37 F WEIGHT - POST DAY 1 2024-06-07 01:19:09 75.7 kg F LENGTH OF DIALYSIS 2024-06-07 01:19:09 176 min F Urea nitrogen [Mass/volume] in Serum or Plasma --post dialysis 2024-06-07 01:17:13 18 mg/dL F 9.0-23.0 Urea nitrogen [Mass/volume] in Serum or Plasma 2024-06-06 23:41:26 53 mg/dL F 9.0-23.0 Creatinine [Mass/volume] in Serum or Plasma 2023-12-20 18:38:32 6.91 mg/dL F 0.7-1.3 Creatinine [Mass/volume] in Serum or Plasma 2023-11-22 23:19:30 7.03 mg/dL F 0.7-1.3 Creatinine [Mass/volume] in Serum or Plasma 2023-10-18 19:03:41 9.13 mg/dL F 0.7-1.3 Creatinine [Mass/volume] in Serum or Plasma 2023-09-22 14:34:30 10.55 mg/dL F 0.7-1.3 Creatinine [Mass/volume] in Serum or Plasma 2023-08-24 02:05:08 8.93 mg/dL F 0.7-1.3 Creatinine [Mass/volume] in Serum or Plasma 2023-07-19 16:29:05 7.67 mg/dL F 0.7-1.3 Creatinine [Mass/volume] in Serum or Plasma 2023-06-23 16:04:28 11.13 mg/dL F 0.7-1.3 Creatinine [Mass/volume] in Serum or Plasma 2023-05-17 15:56:35 13.88 mg/dL F 0.7-1.3 Creatinine [Mass/volume] in Serum or Plasma 2023-04-19 15:04:21 7.78 mg/dL F 0.7-1.3 Creatinine [Mass/volume] in Serum or Plasma 2023-03-23 01:14:40 8.69 mg/dL F 0.7-1.3 Creatinine [Mass/volume] in Serum or Plasma 2023-02-22 17:21:34 12.97 mg/dL F 0.7-1.3 Creatinine [Mass/volume] in Serum or Plasma 2023-01-18 23:05:17 8.65 mg/dL F 0.7-1.3 Creatinine [Mass/volume] in Serum or Plasma 2022-12-21 14:25:16 8.6 mg/dL F 0.7-1.3 Creatinine [Mass/volume] in Serum or Plasma 2022-11-16 17:08:17 9.44 mg/dL F 0.7-1.3 Creatinine [Mass/volume] in Serum or Plasma 2022-10-19 17:09:20 10.5 mg/dL F 0.7-1.3 Creatinine [Mass/volume] in Serum or Plasma 2022-09-21 22:49:22 9.09 mg/dL F 0.7-1.3 Creatinine [Mass/volume] in Serum or Plasma 2022-08-24 15:28:03 8.51 mg/dL F 0.7-1.3 Creatinine [Mass/volume] in Serum or Plasma 2022-07-20 16:45:46 9.24 mg/dL F 0.7-1.3 Creatinine [Mass/volume] in Serum or Plasma 2022-06-22 22:30:41 9.39 mg/dL F 0.7-1.3 Anemia Description Draw Date Result/Unit Status Ref Range Result Comments HCT CALC HGBX3 2024-08-08 20:45:57 28.2 % F 42.0-52.0 Hemoglobin [Mass/volume] in Blood 2024-08-08 20:45:17 9.4 g/dL F 14.0-18.0 Ferritin [Mass/volume] in Serum or Plasma 2024-07-25 05:20:39 474 ng/mL F 22.0-322.0 IRON SATURATION 2024-07-24 19:25:18 37 % F 21.0-49.0 TIBC 2024-07-24 19:25:18 227 ug/dL F 250.0-425.0 HCT CALC HGBX3 2024-07-24 19:25:18 28.2 % F 42.0-52.0 Erythrocyte distribution width [Ratio] by Automated count 2024-07-24 19:24:17 17.2 % F 11.0-15.0 Hemoglobin [Mass/volume] in Blood 2024-07-24 19:24:17 9.4 g/dL F 14.0-18.0 Platelets [#/volume] in Blood by Automated count 2024-07-24 19:24:17 51 x 10^3 cells/uL F 140.0-450.0 MCH [Entitic mass] by Automated count 2024-07-24 19:24:17 32.8 pg F 25.9-34.2 MCHC [Mass/volume] by Automated count 2024-07-24 19:24:17 32.3 g/dL F 29.6-35.3 Erythrocytes [#/volume] in Blood by Automated count 2024-07-24 19:24:17 2.87 x 10^6 cells/uL F 4.6-6.2 Hematocrit [Volume Fraction] of Blood by Automated count 2024-07-24 19:24:17 29 % F 41.0-53.0 MCV [Entitic volume] by Automated count 2024-07-24 19:24:17 101.3 fL F 80.0-100.0 Iron [Mass/volume] in Serum or Plasma 2024-07-24 19:00:28 85 ug/dL F 65.0-175.0 Iron binding capacity.unsaturated [Mass/volume] in Serum or Plasma 2024-07-24 19:00:28 142 ug/dL F 75.0-360.0 HCT CALC HGBX3 2024-07-11 16:18:46 25.5 % F 42.0-52.0 Hemoglobin [Mass/volume] in Blood 2024-07-11 16:17:18 8.5 g/dL F 14.0-18.0 HCT CALC HGBX3 2024-06-21 22:33:25 27.9 % F 42.0-52.0 Erythrocyte distribution width [Ratio] by Automated count 2024-06-21 22:32:05 17.9 % F 11.0-15.0 Hemoglobin [Mass/volume] in Blood 2024-06-21 22:32:05 9.3 g/dL F 14.0-18.0 Platelets [#/volume] in Blood by Automated count 2024-06-21 22:32:05 51 x 10^3 cells/uL F 140.0-450.0 MCHC [Mass/volume] by Automated count 2024-06-21 22:32:05 32.3 g/dL F 29.6-35.3 MCH [Entitic mass] by Automated count 2024-06-21 22:32:05 31.8 pg F 25.9-34.2 Erythrocytes [#/volume] in Blood by Automated count 2024-06-21 22:32:05 2.94 x 10'6 cells/uL F 4.6-6.2 Hematocrit [Volume Fraction] of Blood by Automated count 2024-06-21 22:32:05 28.9 % F 41.0-53.0 MCV [Entitic volume] by Automated count 2024-06-21 22:32:05 98.5 fL F 80.0-100.0 HCT CALC HGBX3 2024-06-07 00:09:56 29.7 % F 42.0-52.0 Hemoglobin [Mass/volume] in Blood 2024-06-07 00:05:11 9.9 g/dL F 14.0-18.0 HCT CALC HGBX3 2024-06-05 19:55:20 F RECOLLECT - OUTDATED SPECIMEN MCH [Entitic mass] by Automated count 2024-06-05 19:54:31 F RECOLLECT - OUTDATED SPECIMEN Erythrocytes [#/volume] in Blood by Automated count 2024-06-05 19:54:31 F RECOLLECT - OUTDATED SPECIMEN Hemoglobin [Mass/volume] in Blood 2024-06-05 19:54:31 F RECOLLECT - OUTDATED SPECIMEN Erythrocyte distribution width [Ratio] by Automated count 2024-06-05 19:54:31 F RECOLLECT - OUTDATED SPECIMEN MCHC [Mass/volume] by Automated count 2024-06-05 19:54:31 F RECOLLECT - OUTDATED SPECIMEN Platelets [#/volume] in Blood by Automated count 2024-06-05 19:54:31 F RECOLLECT - OUTDATED SPECIMEN MCV [Entitic volume] by Automated count 2024-06-05 19:54:31 F RECOLLECT - OUTDATED SPECIMEN Hematocrit [Volume Fraction] of Blood by Automated count 2024-06-05 19:54:31 F RECOLLECT - OUTDATED SPECIMEN IRON SATURATION 2024-06-05 09:43:03 31 % F 21.0-49.0 TIBC 2024-06-05 09:43:03 163 ug/dL F 250.0-425.0 Iron [Mass/volume] in Serum or Plasma 2024-06-05 08:18:40 51 ug/dL F 65.0-175.0 Iron binding capacity.unsaturated [Mass/volume] in Serum or Plasma 2024-06-05 08:18:40 112 ug/dL F 75.0-360.0 Ferritin [Mass/volume] in Serum or Plasma 2024-06-05 08:16:40 859 ng/mL F 22.0-322.0 IRON SATURATION 2023-12-21 05:05:56 52 % F 21.0-49.0 TIBC 2023-12-21 05:05:56 219 ug/dL F 250.0-425.0 Iron [Mass/volume] in Serum or Plasma 2023-12-21 04:59:17 113 ug/dL F 65.0-175.0 Iron binding capacity.unsaturated [Mass/volume] in Serum or Plasma 2023-12-21 04:59:17 106 ug/dL F 75.0-360.0 HCT CALC HGBX3 2023-12-21 02:15:24 29.1 % F 42.0-52.0 Erythrocytes [#/volume] in Blood by Automated count 2023-12-21 02:14:37 2.92 x 10'6 cells/uL F 4.6-6.2 Hematocrit [Volume Fraction] of Blood by Automated count 2023-12-21 02:14:37 30.5 % F 41.0-53.0 MCV [Entitic volume] by Automated count 2023-12-21 02:14:37 104.6 fL F 80.0-100.0 Erythrocyte distribution width [Ratio] by Automated count 2023-12-21 02:14:37 13.6 % F 11.0-15.0 Hemoglobin [Mass/volume] in Blood 2023-12-21 02:14:37 9.7 g/dL F 14.0-18.0 Platelets [#/volume] in Blood by Automated count 2023-12-21 02:14:37 40 x 10^3 cells/uL F 140.0-450.0 MCH [Entitic mass] by Automated count 2023-12-21 02:14:37 33.4 pg F 25.9-34.2 MCHC [Mass/volume] by Automated count 2023-12-21 02:14:37 31.9 g/dL F 29.6-35.3 Ferritin [Mass/volume] in Serum or Plasma 2023-12-21 00:09:43 401 ng/mL F 22.0-322.0 IRON SATURATION 2023-11-23 03:59:26 58 % F 21.0-49.0 TIBC 2023-11-23 03:59:26 229 ug/dL F 250.0-425.0 Iron [Mass/volume] in Serum or Plasma 2023-11-23 03:58:22 133 ug/dL F 65.0-175.0 Iron binding capacity.unsaturated [Mass/volume] in Serum or Plasma 2023-11-23 03:58:22 96 ug/dL F 75.0-360.0 Ferritin [Mass/volume] in Serum or Plasma 2023-11-23 01:35:56 531 ng/mL F 22.0-322.0 HCT CALC HGBX3 2023-11-22 20:30:35 27.9 % F 42.0-52.0 Erythrocyte distribution width [Ratio] by Automated count 2023-11-22 20:29:39 14.4 % F 11.0-15.0 Hemoglobin [Mass/volume] in Blood 2023-11-22 20:29:39 9.3 g/dL F 14.0-18.0 Platelets [#/volume] in Blood by Automated count 2023-11-22 20:29:39 37 x 10^3 cells/uL F 140.0-450.0 MCH [Entitic mass] by Automated count 2023-11-22 20:29:39 33.3 pg F 25.9-34.2 MCHC [Mass/volume] by Automated count 2023-11-22 20:29:39 32.4 g/dL F 29.6-35.3 Erythrocytes [#/volume] in Blood by Automated count 2023-11-22 20:29:39 2.79 x 10'6 cells/uL F 4.6-6.2 Hematocrit [Volume Fraction] of Blood by Automated count 2023-11-22 20:29:39 28.7 % F 41.0-53.0 MCV [Entitic volume] by Automated count 2023-11-22 20:29:39 103 fL F 80.0-100.0 HCT CALC HGBX3 2023-10-19 15:21:25 30.9 % F 42.0-52.0 Erythrocyte distribution width [Ratio] by Automated count 2023-10-19 15:20:28 15.6 % F 11.0-15.0 Hemoglobin [Mass/volume] in Blood 2023-10-19 15:20:28 10.3 g/dL F 14.0-18.0 MCH [Entitic mass] by Automated count 2023-10-19 15:20:28 34 pg F 25.9-34.2 Platelets [#/volume] in Blood by Automated count 2023-10-19 15:20:28 28 x 10^3 cells/uL F 140.0-450.0 MCHC [Mass/volume] by Automated count 2023-10-19 15:20:28 32.8 g/dL F 29.6-35.3 Hematocrit [Volume Fraction] of Blood by Automated count 2023-10-19 15:20:28 31.5 % F 41.0-53.0 Erythrocytes [#/volume] in Blood by Automated count 2023-10-19 15:20:28 3.03 x 10'6 cells/uL F 4.6-6.2 MCV [Entitic volume] by Automated count 2023-10-19 15:20:28 103.8 fL F 80.0-100.0 HCT CALC HGBX3 2023-09-23 03:31:39 32.1 % F 42.0-52.0 Erythrocyte distribution width [Ratio] by Automated count 2023-09-23 03:31:03 15 % F 11.0-15.0 Hemoglobin [Mass/volume] in Blood 2023-09-23 03:31:03 10.7 g/dL F 14.0-18.0 MCH [Entitic mass] by Automated count 2023-09-23 03:31:03 34 pg F 25.9-34.2 MCHC [Mass/volume] by Automated count 2023-09-23 03:31:03 31.7 g/dL F 29.6-35.3 Erythrocytes [#/volume] in Blood by Automated count 2023-09-23 03:31:03 3.14 x 10'6 cells/uL F 4.6-6.2 Hematocrit [Volume Fraction] of Blood by Automated count 2023-09-23 03:31:03 33.7 % F 41.0-53.0 MCV [Entitic volume] by Automated count 2023-09-23 03:31:03 107.2 fL F 80.0-100.0 Platelets [#/volume] in Blood by Automated count 2023-09-23 03:31:02 34 x 10^3 cells/uL F 140.0-450.0 HCT CALC HGBX3 2023-08-24 06:36:36 32.1 % F 42.0-52.0 Erythrocyte distribution width [Ratio] by Automated count 2023-08-24 06:35:35 15 % F 11.0-15.0 Hemoglobin [Mass/volume] in Blood 2023-08-24 06:35:35 10.7 g/dL F 14.0-18.0 Platelets [#/volume] in Blood by Automated count 2023-08-24 06:35:35 30 x 10^3 cells/uL F 140.0-450.0 MCH [Entitic mass] by Automated count 2023-08-24 06:35:35 33.4 pg F 25.9-34.2 MCHC [Mass/volume] by Automated count 2023-08-24 06:35:35 33.5 g/dL F 29.6-35.3 Hematocrit [Volume Fraction] of Blood by Automated count 2023-08-24 06:35:35 31.8 % F 41.0-53.0 Erythrocytes [#/volume] in Blood by Automated count 2023-08-24 06:35:35 3.19 x 10'6 cells/uL F 4.6-6.2 MCV [Entitic volume] by Automated count 2023-08-24 06:35:35 99.9 fL F 80.0-100.0 IRON SATURATION 2023-08-24 06:24:25 26 % F 21.0-49.0 TIBC 2023-08-24 06:24:25 242 ug/dL F 250.0-425.0 Iron [Mass/volume] in Serum or Plasma 2023-08-24 06:18:39 64 ug/dL F 65.0-175.0 Iron binding capacity.unsaturated [Mass/volume] in Serum or Plasma 2023-08-24 06:18:39 178 ug/dL F 75.0-360.0 Ferritin [Mass/volume] in Serum or Plasma 2023-08-24 04:29:32 585 ng/mL F 22.0-322.0 HCT CALC HGBX3 2023-07-19 17:25:14 32.1 % F 42.0-52.0 Erythrocyte distribution width [Ratio] by Automated count 2023-07-19 17:25:12 13.8 % F 11.0-15.0 Platelets [#/volume] in Blood by Automated count 2023-07-19 17:25:12 24 x 10^3 cells/uL F 140.0-450.0 MCHC [Mass/volume] by Automated count 2023-07-19 17:25:12 32.5 g/dL F 29.6-35.3 Hemoglobin [Mass/volume] in Blood 2023-07-19 17:25:10 10.7 g/dL F 14.0-18.0 MCH [Entitic mass] by Automated count 2023-07-19 17:25:10 33.2 pg F 25.9-34.2 Erythrocytes [#/volume] in Blood by Automated count 2023-07-19 17:25:10 3.23 x 10'6 cells/uL F 4.6-6.2 Hematocrit [Volume Fraction] of Blood by Automated count 2023-07-19 17:25:10 33 % F 41.0-53.0 MCV [Entitic volume] by Automated count 2023-07-19 17:25:10 102.1 fL F 80.0-100.0 HCT CALC HGBX3 2023-06-24 05:18:29 30.3 % F 42.0-52.0 Erythrocyte distribution width [Ratio] by Automated count 2023-06-24 05:18:11 13.9 % F 11.0-15.0 Hemoglobin [Mass/volume] in Blood 2023-06-24 05:18:11 10.1 g/dL F 14.0-18.0 Platelets [#/volume] in Blood by Automated count 2023-06-24 05:18:11 25 x 10^3 cells/uL F 140.0-450.0 MCHC [Mass/volume] by Automated count 2023-06-24 05:18:11 34 g/dL F 29.6-35.3 MCH [Entitic mass] by Automated count 2023-06-24 05:18:11 34.8 pg F 25.9-34.2 Erythrocytes [#/volume] in Blood by Automated count 2023-06-24 05:18:11 2.9 x 10'6 cells/uL F 4.6-6.2 Hematocrit [Volume Fraction] of Blood by Automated count 2023-06-24 05:18:11 29.7 % F 41.0-53.0 MCV [Entitic volume] by Automated count 2023-06-24 05:18:11 102.5 fL F 80.0-100.0 IRON SATURATION 2023-05-18 07:10:52 29 % F 21.0-49.0 TIBC 2023-05-18 07:10:52 259 ug/dL F 250.0-425.0 Iron binding capacity.unsaturated [Mass/volume] in Serum or Plasma 2023-05-18 07:09:04 185 ug/dL F 75.0-360.0 Iron [Mass/volume] in Serum or Plasma 2023-05-18 07:09:04 74 ug/dL F 65.0-175.0 Ferritin [Mass/volume] in Serum or Plasma 2023-05-18 05:13:30 467 ng/mL F 22.0-322.0 HCT CALC HGBX3 2023-05-17 19:56:48 29.4 % F 42.0-52.0 Erythrocyte distribution width [Ratio] by Automated count 2023-05-17 19:56:35 14.3 % F 11.0-15.0 Hemoglobin [Mass/volume] in Blood 2023-05-17 19:56:35 9.8 g/dL F 14.0-18.0 Platelets [#/volume] in Blood by Automated count 2023-05-17 19:56:35 21 x 10^3 cells/uL F 140.0-450.0 MCH [Entitic mass] by Automated count 2023-05-17 19:56:35 34.7 pg F 25.9-34.2 MCHC [Mass/volume] by Automated count 2023-05-17 19:56:35 33.8 g/dL F 29.6-35.3 Erythrocytes [#/volume] in Blood by Automated count 2023-05-17 19:56:35 2.83 x 10'6 cells/uL F 4.6-6.2 Hematocrit [Volume Fraction] of Blood by Automated count 2023-05-17 19:56:35 29.1 % F 41.0-53.0 MCV [Entitic volume] by Automated count 2023-05-17 19:56:35 102.6 fL F 80.0-100.0 HCT CALC HGBX3 2023-04-19 16:58:38 31.5 % F 42.0-52.0 Erythrocyte distribution width [Ratio] by Automated count 2023-04-19 16:58:34 13.8 % F 11.0-15.0 Platelets [#/volume] in Blood by Automated count 2023-04-19 16:58:34 22 x 10^3 cells/uL F 140.0-450.0 Hemoglobin [Mass/volume] in Blood 2023-04-19 16:58:32 10.5 g/dL F 14.0-18.0 MCH [Entitic mass] by Automated count 2023-04-19 16:58:32 36.3 pg F 25.9-34.2 MCHC [Mass/volume] by Automated count 2023-04-19 16:58:32 34.9 g/dL F 29.6-35.3 Erythrocytes [#/volume] in Blood by Automated count 2023-04-19 16:58:32 2.91 x 10'6 cells/uL F 4.6-6.2 Hematocrit [Volume Fraction] of Blood by Automated count 2023-04-19 16:58:32 30.2 % F 41.0-53.0 MCV [Entitic volume] by Automated count 2023-04-19 16:58:32 103.8 fL F 80.0-100.0 HCT CALC HGBX3 2023-03-23 17:34:56 31.2 % F 42.0-52.0 Erythrocyte distribution width [Ratio] by Automated count 2023-03-23 17:34:37 14.1 % F 11.0-15.0 MCH [Entitic mass] by Automated count 2023-03-23 17:34:37 35.5 pg F 25.9-34.2 Platelets [#/volume] in Blood by Automated count 2023-03-23 17:34:37 21 x 10^3 cells/uL F 140.0-450.0 Hematocrit [Volume Fraction] of Blood by Automated count 2023-03-23 17:34:37 30 % F 41.0-53.0 MCV [Entitic volume] by Automated count 2023-03-23 17:34:37 102.4 fL F 80.0-100.0 Hemoglobin [Mass/volume] in Blood 2023-03-23 17:34:35 10.4 g/dL F 14.0-18.0 MCHC [Mass/volume] by Automated count 2023-03-23 17:34:35 34.7 g/dL F 29.6-35.3 Erythrocytes [#/volume] in Blood by Automated count 2023-03-23 17:34:35 2.93 x 10'6 cells/uL F 4.6-6.2 HCT CALC HGBX3 2023-02-23 04:40:15 30.6 % F 42.0-52.0 Hemoglobin [Mass/volume] in Blood 2023-02-23 04:39:55 10.2 g/dL F 14.0-18.0 Erythrocytes [#/volume] in Blood by Automated count 2023-02-23 04:39:55 3.01 x 10'6 cells/uL F 4.6-6.2 Hematocrit [Volume Fraction] of Blood by Automated count 2023-02-23 04:39:55 29.8 % F 41.0-53.0 Erythrocyte distribution width [Ratio] by Automated count 2023-02-23 04:39:54 14.3 % F 11.0-15.0 Platelets [#/volume] in Blood by Automated count 2023-02-23 04:39:54 26 x 10^3 cells/uL F 140.0-450.0 MCH [Entitic mass] by Automated count 2023-02-23 04:39:54 33.8 pg F 25.9-34.2 MCHC [Mass/volume] by Automated count 2023-02-23 04:39:54 34.1 g/dL F 29.6-35.3 MCV [Entitic volume] by Automated count 2023-02-23 04:39:54 99.1 fL F 80.0-100.0 IRON SATURATION 2023-02-23 04:10:05 42 % F 21.0-49.0 TIBC 2023-02-23 04:10:05 260 ug/dL F 250.0-425.0 Iron [Mass/volume] in Serum or Plasma 2023-02-23 04:08:14 109 ug/dL F 65.0-175.0 Iron binding capacity.unsaturated [Mass/volume] in Serum or Plasma 2023-02-23 04:08:14 151 ug/dL F 75.0-360.0 Ferritin [Mass/volume] in Serum or Plasma 2023-02-22 23:39:43 569 ng/mL F 22.0-322.0 HCT CALC HGBX3 2023-01-19 15:33:00 33 % F 42.0-52.0 Erythrocyte distribution width [Ratio] by Automated count 2023-01-19 15:32:09 13.5 % F 11.0-15.0 Hemoglobin [Mass/volume] in Blood 2023-01-19 15:32:09 11 g/dL F 14.0-18.0 Platelets [#/volume] in Blood by Automated count 2023-01-19 15:32:09 35 x 10^3 cells/uL F 140.0-450.0 MCH [Entitic mass] by Automated count 2023-01-19 15:32:09 33.9 pg F 25.9-34.2 MCHC [Mass/volume] by Automated count 2023-01-19 15:32:09 34.2 g/dL F 29.6-35.3 Erythrocytes [#/volume] in Blood by Automated count 2023-01-19 15:32:09 3.25 x 10'6 cells/uL F 4.6-6.2 Hematocrit [Volume Fraction] of Blood by Automated count 2023-01-19 15:32:09 32.2 % F 41.0-53.0 MCV [Entitic volume] by Automated count 2023-01-19 15:32:09 98.9 fL F 80.0-100.0 HCT CALC HGBX3 2022-12-21 14:52:46 33.9 % F 42.0-52.0 Hemoglobin [Mass/volume] in Blood 2022-12-21 14:52:12 11.3 g/dL F 14.0-18.0 Erythrocytes [#/volume] in Blood by Automated count 2022-12-21 14:52:12 3.39 x 10'6 cells/uL F 4.6-6.2 Hematocrit [Volume Fraction] of Blood by Automated count 2022-12-21 14:52:12 33.9 % F 41.0-53.0 MCV [Entitic volume] by Automated count 2022-12-21 14:52:12 100.2 fL F 80.0-100.0 Erythrocyte distribution width [Ratio] by Automated count 2022-12-21 14:52:10 13.5 % F 11.0-15.0 Platelets [#/volume] in Blood by Automated count 2022-12-21 14:52:10 24 x 10^3 cells/uL F 140.0-450.0 MCH [Entitic mass] by Automated count 2022-12-21 14:52:10 33.4 pg F 25.9-34.2 MCHC [Mass/volume] by Automated count 2022-12-21 14:52:10 33.4 g/dL F 29.6-35.3 IRON SATURATION 2022-11-17 03:24:02 39 % F 21.0-49.0 TIBC 2022-11-17 03:24:02 255 ug/dL F 250.0-425.0 Iron [Mass/volume] in Serum or Plasma 2022-11-17 03:20:06 100 ug/dL F 65.0-175.0 Iron binding capacity.unsaturated [Mass/volume] in Serum or Plasma 2022-11-17 03:20:06 155 ug/dL F 75.0-360.0 HCT CALC HGBX3 2022-11-17 03:00:18 35.7 % F 42.0-52.0 Platelets [#/volume] in Blood by Automated count 2022-11-17 02:59:18 24 x 10^3 cells/uL F 150.0-400.0 Erythrocyte distribution width [Ratio] by Automated count 2022-11-17 02:59:16 13.8 % F 11.0-15.0 Hemoglobin [Mass/volume] in Blood 2022-11-17 02:59:16 11.9 g/dL F 14.0-18.0 MCH [Entitic mass] by Automated count 2022-11-17 02:59:16 34.2 pg F 27.0-31.0 MCHC [Mass/volume] by Automated count 2022-11-17 02:59:16 33.1 g/dL F 32.0-36.0 Erythrocytes [#/volume] in Blood by Automated count 2022-11-17 02:59:16 3.48 x 10'6 cells/uL F 4.6-6.2 Hematocrit [Volume Fraction] of Blood by Automated count 2022-11-17 02:59:16 36 % F 42.0-52.0 MCV [Entitic volume] by Automated count 2022-11-17 02:59:16 103.4 fL F 80.0-100.0 Ferritin [Mass/volume] in Serum or Plasma 2022-11-16 17:14:19 391 ng/mL F 22.0-322.0 HCT CALC HGBX3 2022-10-20 06:33:22 32.4 % F 42.0-52.0 Erythrocyte distribution width [Ratio] by Automated count 2022-10-20 06:33:11 13.7 % F 11.0-15.0 Hemoglobin [Mass/volume] in Blood 2022-10-20 06:33:11 10.8 g/dL F 14.0-18.0 Platelets [#/volume] in Blood by Automated count 2022-10-20 06:33:11 24 x 10^3 cells/uL F 150.0-400.0 MCH [Entitic mass] by Automated count 2022-10-20 06:33:11 35.5 pg F 27.0-31.0 MCHC [Mass/volume] by Automated count 2022-10-20 06:33:11 34.2 g/dL F 32.0-36.0 Erythrocytes [#/volume] in Blood by Automated count 2022-10-20 06:33:11 3.05 x 10'6 cells/uL F 4.6-6.2 Hematocrit [Volume Fraction] of Blood by Automated count 2022-10-20 06:33:11 31.7 % F 42.0-52.0 MCV [Entitic volume] by Automated count 2022-10-20 06:33:11 103.9 fL F 80.0-100.0 HCT CALC HGBX3 2022-09-22 06:59:35 34.8 % F 42.0-52.0 Erythrocyte distribution width [Ratio] by Automated count 2022-09-22 06:59:06 14.3 % F 11.0-15.0 Hemoglobin [Mass/volume] in Blood 2022-09-22 06:59:06 11.6 g/dL F 14.0-18.0 Platelets [#/volume] in Blood by Automated count 2022-09-22 06:59:06 35 x 10^3 cells/uL F 150.0-400.0 MCH [Entitic mass] by Automated count 2022-09-22 06:59:06 34.1 pg F 27.0-31.0 MCHC [Mass/volume] by Automated count 2022-09-22 06:59:06 33.4 g/dL F 32.0-36.0 Erythrocytes [#/volume] in Blood by Automated count 2022-09-22 06:59:06 3.4 x 10'6 cells/uL F 4.6-6.2 Hematocrit [Volume Fraction] of Blood by Automated count 2022-09-22 06:59:06 34.6 % F 42.0-52.0 MCV [Entitic volume] by Automated count 2022-09-22 06:59:06 101.9 fL F 80.0-100.0 IRON SATURATION 2022-08-24 17:01:25 44 % F 21.0-49.0 TIBC 2022-08-24 17:01:25 261 ug/dL F 250.0-425.0 Iron [Mass/volume] in Serum or Plasma 2022-08-24 17:00:16 116 ug/dL F 65.0-175.0 Iron binding capacity.unsaturated [Mass/volume] in Serum or Plasma 2022-08-24 17:00:16 145 ug/dL F 75.0-360.0 Ferritin [Mass/volume] in Serum or Plasma 2022-08-24 16:10:55 399 ng/mL F 22.0-322.0 HCT CALC HGBX3 2022-08-24 16:07:16 33.6 % F 42.0-52.0 Erythrocyte distribution width [Ratio] by Automated count 2022-08-24 16:06:54 13.4 % F 11.0-15.0 Hemoglobin [Mass/volume] in Blood 2022-08-24 16:06:54 11.2 g/dL F 14.0-18.0 Platelets [#/volume] in Blood by Automated count 2022-08-24 16:06:54 32 x 10^3 cells/uL F 150.0-400.0 MCH [Entitic mass] by Automated count 2022-08-24 16:06:54 34.9 pg F 27.0-31.0 MCHC [Mass/volume] by Automated count 2022-08-24 16:06:54 34.4 g/dL F 32.0-36.0 Erythrocytes [#/volume] in Blood by Automated count 2022-08-24 16:06:54 3.2 x 10'6 cells/uL F 4.6-6.2 Hematocrit [Volume Fraction] of Blood by Automated count 2022-08-24 16:06:54 32.5 % F 42.0-52.0 MCV [Entitic volume] by Automated count 2022-08-24 16:06:54 101.6 fL F 80.0-100.0 HCT CALC HGBX3 2022-07-20 17:07:30 37.2 % F 42.0-52.0 Erythrocyte distribution width [Ratio] by Automated count 2022-07-20 17:06:57 14 % F 11.0-15.0 Platelets [#/volume] in Blood by Automated count 2022-07-20 17:06:57 35 x 10^3 cells/uL F 150.0-400.0 Hemoglobin [Mass/volume] in Blood 2022-07-20 17:06:57 12.4 g/dL F 14.0-18.0 MCH [Entitic mass] by Automated count 2022-07-20 17:06:57 34 pg F 27.0-31.0 MCHC [Mass/volume] by Automated count 2022-07-20 17:06:57 33.6 g/dL F 32.0-36.0 Hematocrit [Volume Fraction] of Blood by Automated count 2022-07-20 17:06:57 37 % F 42.0-52.0 Erythrocytes [#/volume] in Blood by Automated count 2022-07-20 17:06:57 3.65 x 10'6 cells/uL F 4.6-6.2 MCV [Entitic volume] by Automated count 2022-07-20 17:06:57 101.4 fL F 80.0-100.0 HCT CALC HGBX3 2022-06-23 01:56:14 32.4 % F 42.0-52.0 Erythrocyte distribution width [Ratio] by Automated count 2022-06-23 01:55:46 14.3 % F 11.0-15.0 Platelets [#/volume] in Blood by Automated count 2022-06-23 01:55:46 28 x 10^3 cells/uL F 150.0-400.0 MCH [Entitic mass] by Automated count 2022-06-23 01:55:46 32.4 pg F 27.0-31.0 Erythrocytes [#/volume] in Blood by Automated count 2022-06-23 01:55:46 3.33 x 10'6 cells/uL F 4.6-6.2 MCHC [Mass/volume] by Automated count 2022-06-23 01:55:46 32 g/dL F 32.0-36.0 MCV [Entitic volume] by Automated count 2022-06-23 01:55:46 101.3 fL F 80.0-100.0 Hemoglobin [Mass/volume] in Blood 2022-06-23 01:55:44 10.8 g/dL F 14.0-18.0 Hematocrit [Volume Fraction] of Blood by Automated count 2022-06-23 01:55:44 33.7 % F 42.0-52.0 FluidBP Description Draw Date Result/Unit Status Ref Range Result Comments Sodium [Moles/volume] in Serum or Plasma 2024-07-24 19:02:46 140 mEq/L F 132.0-146.0 Sodium [Moles/volume] in Serum or Plasma 2024-06-22 04:52:32 135 mEq/L F 132.0-146.0 Sodium [Moles/volume] in Serum or Plasma 2023-12-21 04:59:17 142 mEq/L F 132.0-146.0 Sodium [Moles/volume] in Serum or Plasma 2023-11-23 03:58:22 139 mEq/L F 132.0-146.0 Sodium [Moles/volume] in Serum or Plasma 2023-10-19 06:00:49 139 mEq/L F 132.0-146.0 Sodium [Moles/volume] in Serum or Plasma 2023-09-22 18:11:10 137 mEq/L F 132.0-146.0 Sodium [Moles/volume] in Serum or Plasma 2023-08-24 06:18:39 140 mEq/L F 132.0-146.0 Sodium [Moles/volume] in Serum or Plasma 2023-07-19 20:21:41 138 mEq/L F 132.0-146.0 Sodium [Moles/volume] in Serum or Plasma 2023-06-23 21:17:18 138 mEq/L F 132.0-146.0 Sodium [Moles/volume] in Serum or Plasma 2023-05-17 15:56:35 138 mEq/L F 132.0-146.0 Sodium [Moles/volume] in Serum or Plasma 2023-04-19 15:04:21 139 mEq/L F 132.0-146.0 Sodium [Moles/volume] in Serum or Plasma 2023-03-23 01:14:40 139 mEq/L F 132.0-146.0 Sodium [Moles/volume] in Serum or Plasma 2023-02-22 17:21:34 136 mEq/L F 132.0-146.0 Sodium [Moles/volume] in Serum or Plasma 2023-01-18 23:05:16 137 mEq/L F 132.0-146.0 Sodium [Moles/volume] in Serum or Plasma 2022-12-21 14:25:16 136 mEq/L F 132.0-146.0 Sodium [Moles/volume] in Serum or Plasma 2022-11-16 17:08:17 136 mEq/L F 132.0-146.0 Sodium [Moles/volume] in Serum or Plasma 2022-10-19 17:09:20 139 mEq/L F 132.0-146.0 Sodium [Moles/volume] in Serum or Plasma 2022-09-21 22:49:22 140 mEq/L F 132.0-146.0 Sodium [Moles/volume] in Serum or Plasma 2022-08-24 15:28:03 140 mEq/L F 132.0-146.0 Sodium [Moles/volume] in Serum or Plasma 2022-07-20 16:45:46 137 mEq/L F 132.0-146.0 Sodium [Moles/volume] in Serum or Plasma 2022-06-22 22:30:41 139 mEq/L F 132.0-146.0 General Description Draw Date Result/Unit Status Ref Range Result Comments Chloride [Moles/volume] in Serum or Plasma 2024-07-24 19:02:46 102 mEq/L F 99.0-109.0 Aspartate aminotransferase [Enzymatic activity/volume] in Serum or Plasma 2024-07-24 15:06:20 22 U/L F 0.0-33.0 Alanine aminotransferase [Enzymatic activity/volume] in Serum or Plasma 2024-07-24 15:06:20 9 U/L F 10.0-49.0 Chloride [Moles/volume] in Serum or Plasma 2024-06-22 04:52:32 99 mEq/L F 99.0-109.0 Aspartate aminotransferase [Enzymatic activity/volume] in Serum or Plasma 2024-06-22 00:54:16 28 U/L F 0.0-33.0 Alanine aminotransferase [Enzymatic activity/volume] in Serum or Plasma 2024-06-22 00:54:16 9 U/L F 10.0-49.0 Bilirubin.total [Mass/volume] in Serum or Plasma 2024-06-06 23:41:26 2.4 mg/dL F 0.3-1.2 Aluminum [Mass/volume] in Serum or Plasma 2024-06-04 19:37:52 10 ug/L F 0.0-9.0 Chloride [Moles/volume] in Serum or Plasma 2023-12-21 04:59:17 104 mEq/L F 99.0-109.0 Aspartate aminotransferase [Enzymatic activity/volume] in Serum or Plasma 2023-12-20 18:38:32 21 U/L F 0.0-33.0 Alanine aminotransferase [Enzymatic activity/volume] in Serum or Plasma 2023-12-20 18:38:32 13 U/L F 10.0-49.0 Chloride [Moles/volume] in Serum or Plasma 2023-11-23 03:58:22 102 mEq/L F 99.0-109.0 Aspartate aminotransferase [Enzymatic activity/volume] in Serum or Plasma 2023-11-22 23:19:30 19 U/L F 0.0-33.0 Alanine aminotransferase [Enzymatic activity/volume] in Serum or Plasma 2023-11-22 23:19:30 13 U/L F 10.0-49.0 Chloride [Moles/volume] in Serum or Plasma 2023-10-19 06:00:49 102 mEq/L F 99.0-109.0 Aspartate aminotransferase [Enzymatic activity/volume] in Serum or Plasma 2023-10-18 19:03:41 18 U/L F 0.0-33.0 Alanine aminotransferase [Enzymatic activity/volume] in Serum or Plasma 2023-10-18 19:03:41 11 U/L F 10.0-49.0 Chloride [Moles/volume] in Serum or Plasma 2023-09-22 18:11:10 101 mEq/L F 99.0-109.0 Aspartate aminotransferase [Enzymatic activity/volume] in Serum or Plasma 2023-09-22 14:34:30 17 U/L F 0.0-33.0 Alanine aminotransferase [Enzymatic activity/volume] in Serum or Plasma 2023-09-22 14:34:30 10 U/L F 10.0-49.0 Chloride [Moles/volume] in Serum or Plasma 2023-08-24 06:18:39 100 mEq/L F 99.0-109.0 Aspartate aminotransferase [Enzymatic activity/volume] in Serum or Plasma 2023-08-24 02:05:08 13 U/L F 0.0-33.0 Alanine aminotransferase [Enzymatic activity/volume] in Serum or Plasma 2023-08-24 02:05:08 11 U/L F 10.0-49.0 Chloride [Moles/volume] in Serum or Plasma 2023-07-19 20:21:41 102 mEq/L F 99.0-109.0 Aspartate aminotransferase [Enzymatic activity/volume] in Serum or Plasma 2023-07-19 16:29:05 22 U/L F 0.0-33.0 Alanine aminotransferase [Enzymatic activity/volume] in Serum or Plasma 2023-07-19 16:29:05 15 U/L F 10.0-49.0 Chloride [Moles/volume] in Serum or Plasma 2023-06-23 21:17:18 102 mEq/L F 99.0-109.0 Aspartate aminotransferase [Enzymatic activity/volume] in Serum or Plasma 2023-06-23 16:04:28 11 U/L F 0.0-33.0 Alanine aminotransferase [Enzymatic activity/volume] in Serum or Plasma 2023-06-23 16:04:28 10 U/L F 10.0-49.0 Aluminum [Mass/volume] in Serum or Plasma 2023-05-17 18:51:22 10 ug/L F 0.0-9.0 Aspartate aminotransferase [Enzymatic activity/volume] in Serum or Plasma 2023-05-17 15:56:35 10 U/L F 0.0-33.0 Alanine aminotransferase [Enzymatic activity/volume] in Serum or Plasma 2023-05-17 15:56:35 12 U/L F 10.0-49.0 Chloride [Moles/volume] in Serum or Plasma 2023-05-17 15:56:35 100 mEq/L F 99.0-109.0 Aspartate aminotransferase [Enzymatic activity/volume] in Serum or Plasma 2023-04-19 15:04:21 18 U/L F 0.0-33.0 Alanine aminotransferase [Enzymatic activity/volume] in Serum or Plasma 2023-04-19 15:04:21 17 U/L F 10.0-49.0 Chloride [Moles/volume] in Serum or Plasma 2023-04-19 15:04:21 101 mEq/L F 99.0-109.0 Aspartate aminotransferase [Enzymatic activity/volume] in Serum or Plasma 2023-03-23 01:14:40 15 U/L F 0.0-33.0 Alanine aminotransferase [Enzymatic activity/volume] in Serum or Plasma 2023-03-23 01:14:40 16 U/L F 10.0-49.0 Chloride [Moles/volume] in Serum or Plasma 2023-03-23 01:14:40 101 mEq/L F 99.0-109.0 Aspartate aminotransferase [Enzymatic activity/volume] in Serum or Plasma 2023-02-22 17:21:34 15 U/L F 0.0-33.0 Alanine aminotransferase [Enzymatic activity/volume] in Serum or Plasma 2023-02-22 17:21:34 17 U/L F 10.0-49.0 Chloride [Moles/volume] in Serum or Plasma 2023-02-22 17:21:34 98 mEq/L F 99.0-109.0 Aspartate aminotransferase [Enzymatic activity/volume] in Serum or Plasma 2023-01-18 23:05:17 24 U/L F 0.0-33.0 Alanine aminotransferase [Enzymatic activity/volume] in Serum or Plasma 2023-01-18 23:05:17 24 U/L F 10.0-49.0 Chloride [Moles/volume] in Serum or Plasma 2023-01-18 23:05:16 100 mEq/L F 99.0-109.0 Aspartate aminotransferase [Enzymatic activity/volume] in Serum or Plasma 2022-12-21 14:25:16 22 U/L F 0.0-33.0 Alanine aminotransferase [Enzymatic activity/volume] in Serum or Plasma 2022-12-21 14:25:16 22 U/L F 10.0-49.0 Chloride [Moles/volume] in Serum or Plasma 2022-12-21 14:25:16 101 mEq/L F 99.0-109.0 Aspartate aminotransferase [Enzymatic activity/volume] in Serum or Plasma 2022-11-16 17:08:17 19 U/L F 0.0-33.0 Alanine aminotransferase [Enzymatic activity/volume] in Serum or Plasma 2022-11-16 17:08:17 19 U/L F 10.0-49.0 Chloride [Moles/volume] in Serum or Plasma 2022-11-16 17:08:17 99 mEq/L F 99.0-109.0 Aspartate aminotransferase [Enzymatic activity/volume] in Serum or Plasma 2022-10-19 17:09:20 17 U/L F 0.0-33.0 Alanine aminotransferase [Enzymatic activity/volume] in Serum or Plasma 2022-10-19 17:09:20 16 U/L F 10.0-49.0 Chloride [Moles/volume] in Serum or Plasma 2022-10-19 17:09:20 104 mEq/L F 99.0-109.0 Aspartate aminotransferase [Enzymatic activity/volume] in Serum or Plasma 2022-09-21 22:49:22 17 U/L F 0.0-33.0 Alanine aminotransferase [Enzymatic activity/volume] in Serum or Plasma 2022-09-21 22:49:22 19 U/L F 10.0-49.0 Chloride [Moles/volume] in Serum or Plasma 2022-09-21 22:49:22 102 mEq/L F 99.0-109.0 Aspartate aminotransferase [Enzymatic activity/volume] in Serum or Plasma 2022-08-24 15:28:03 13 U/L F 0.0-33.0 Alanine aminotransferase [Enzymatic activity/volume] in Serum or Plasma 2022-08-24 15:28:03 14 U/L F 10.0-49.0 Chloride [Moles/volume] in Serum or Plasma 2022-08-24 15:28:03 103 mEq/L F 99.0-109.0 Aspartate aminotransferase [Enzymatic activity/volume] in Serum or Plasma 2022-07-20 16:45:46 24 U/L F 0.0-33.0 Alanine aminotransferase [Enzymatic activity/volume] in Serum or Plasma 2022-07-20 16:45:46 33 U/L F 10.0-49.0 Chloride [Moles/volume] in Serum or Plasma 2022-07-20 16:45:46 100 mEq/L F 99.0-109.0 Aspartate aminotransferase [Enzymatic activity/volume] in Serum or Plasma 2022-06-22 22:30:41 18 U/L F 0.0-33.0 Alanine aminotransferase [Enzymatic activity/volume] in Serum or Plasma 2022-06-22 22:30:41 19 U/L F 10.0-49.0 Chloride [Moles/volume] in Serum or Plasma 2022-06-22 22:30:41 103 mEq/L F 99.0-109.0 InfectionVaccination Description Draw Date Result/Unit Status Ref Range Result Comments Neutrophils/100 leukocytes in Blood by Automated count 2024-07-24 19:24:17 61.1 % F Monocytes/100 leukocytes in Blood by Automated count 2024-07-24 19:24:17 6.6 % F Lymphocytes/100 leukocytes in Blood by Automated count 2024-07-24 19:24:17 23.9 % F Basophils/100 leukocytes in Blood by Automated count 2024-07-24 19:24:17 1.4 % F Eosinophils/100 leukocytes in Blood by Automated count 2024-07-24 19:24:17 7 % F Monocytes [#/volume] in Blood by Automated count 2024-07-24 19:24:17 211 Cells/uL F 0.0-1100.0 Basophils [#/volume] in Blood by Automated count 2024-07-24 19:24:17 45 Cells/uL F 0.0-400.0 Eosinophils [#/volume] in Blood by Automated count 2024-07-24 19:24:17 224 Cells/uL F 0.0-700.0 Neutrophils [#/volume] in Blood by Automated count 2024-07-24 19:24:17 1955 Cells/uL F 2000.0-8800. 0 Leukocytes [#/volume] in Blood by Automated count 2024-07-24 19:24:17 3.2 x 10^3 cells/uL F 4.0-11.0 Lymphocytes [#/volume] in Blood by Automated count 2024-07-24 19:24:17 765 Cells/uL F 620.0-3660.0 Bacteria # 2 identified in Blood by [facility]er[facility] culture 2024-07-03 16:07:26 F MICROBIOLOGY - FINAL REPORT REPORT OF: 07/03/24 11:08 Bacteria # 2 identified in Blood by Aerobe culture 2024-07-03 16:07:26 F MICROBIOLOGY - FINAL REPORT REPORT OF: 07/03/24 11:08 Bacteria identified in Blood by Anaerobe culture 2024-07-03 15:37:23 F MICROBIOLOGY - FINAL REPORT REPORT OF: 07/03/24 10:38 Bacteria identified in Blood by Aerobe culture 2024-07-03 15:37:23 F MICROBIOLOGY - FINAL REPORT REPORT OF: 07/03/24 10:38 Bacteria # 2 identified in Blood by Aerobe culture 2024-07-02 15:35:34 P MICROBIOLOGY - PRELIMINARY REPORT OF: 07/02/24 10:36 Bacteria # 2 identified in Blood by Anaerobe culture 2024-07-02 15:35:34 P MICROBIOLOGY - PRELIMINARY REPORT OF: 07/02/24 10:36 Bacteria # 2 identified in Blood by Aerobe culture 2024-07-02 15:35:34 P MICROBIOLOGY - PRELIMINARY REPORT OF: 07/03/24 09:38 Bacteria # 2 identified in Blood by Anaerobe culture 2024-07-02 15:35:34 P MICROBIOLOGY - PRELIMINARY REPORT OF: 07/03/24 09:38 Bacteria identified in Blood by Aerobe culture 2024-07-02 15:35:34 P MICROBIOLOGY - PRELIMINARY REPORT OF: 07/03/24 09:38 Bacteria identified in Blood by Aerobe culture 2024-07-02 15:35:34 P MICROBIOLOGY - PRELIMINARY REPORT OF: 07/02/24 10:36 Bacteria identified in Blood by Anaerobe culture 2024-07-02 15:35:34 P MICROBIOLOGY - PRELIMINARY REPORT OF: 07/02/24 10:36 Bacteria identified in Blood by Anaerobe culture 2024-07-02 15:35:34 P MICROBIOLOGY - PRELIMINARY REPORT OF: 07/03/24 09:38 Bacteria # 2 identified in Blood by Aerobe culture 2024-07-01 15:33:40 P MICROBIOLOGY - PRELIMINARY REPORT OF: 07/01/24 10:34 Bacteria # 2 identified in Blood by Anaerobe culture 2024-07-01 15:33:40 P MICROBIOLOGY - PRELIMINARY REPORT OF: 07/01/24 10:34 Bacteria identified in Blood by Anaerobe culture 2024-07-01 15:33:40 P MICROBIOLOGY - PRELIMINARY REPORT OF: 07/01/24 10:34 Bacteria identified in Blood by Aerobe culture 2024-07-01 15:33:40 P MICROBIOLOGY - PRELIMINARY REPORT OF: 07/01/24 10:34 Bacteria identified in Blood by Anaerobe culture 2024-06-30 15:32:00 P MICROBIOLOGY - PRELIMINARY REPORT OF: 06/30/24 10:33 Bacteria identified in Blood by Aerobe culture 2024-06-30 15:32:00 P MICROBIOLOGY - PRELIMINARY REPORT OF: 06/30/24 10:33 Bacteria # 2 identified in Blood by Anaerobe culture 2024-06-30 15:31:59 P MICROBIOLOGY - PRELIMINARY REPORT OF: 06/30/24 10:33 Bacteria # 2 identified in Blood by Aerobe culture 2024-06-30 15:31:59 P MICROBIOLOGY - PRELIMINARY REPORT OF: 06/30/24 10:33 Bacteria # 2 identified in Blood by Aerobe culture 2024-06-29 15:30:17 P MICROBIOLOGY - PRELIMINARY REPORT OF: 06/29/24 10:31 Bacteria # 2 identified in Blood by Anaerobe culture 2024-06-29 15:30:17 P MICROBIOLOGY - PRELIMINARY REPORT OF: 06/29/24 10:31 Bacteria identified in Blood by Anaerobe culture 2024-06-29 15:30:17 P MICROBIOLOGY - PRELIMINARY REPORT OF: 06/29/24 10:31 Bacteria identified in Blood by Aerobe culture 2024-06-29 15:30:17 P MICROBIOLOGY - PRELIMINARY REPORT OF: 06/29/24 10:31 Bacteria # 2 identified in Blood by Anaerobe culture 2024-06-28 19:28:28 P MICROBIOLOGY - PRELIMINARY REPORT OF: 06/28/24 02:29 Bacteria # 2 identified in Blood by Anaerobe culture 2024-06-28 19:28:28 P MICROBIOLOGY - PRELIMINARY REPORT OF: 06/28/24 02:29 Bacteria # 2 identified in Blood by Aerobe culture 2024-06-28 19:28:28 P MICROBIOLOGY - PRELIMINARY REPORT OF: 06/28/24 02:29 Bacteria identified in Blood by Aerobe culture 2024-06-28 19:28:28 P MICROBIOLOGY - PRELIMINARY REPORT OF: 06/28/24 02:29 Bacteria identified in Blood by Anaerobe culture 2024-06-28 19:28:28 P MICROBIOLOGY - PRELIMINARY REPORT OF: 06/28/24 02:29 Bacteria identified in Blood by Anaerobe culture 2024-06-28 19:28:28 P MICROBIOLOGY - PRELIMINARY REPORT OF: 06/28/24 02:29 Bacteria # 2 identified in Blood by Aerobe culture 2024-06-28 19:28:28 P MICROBIOLOGY - PRELIMINARY REPORT OF: 06/28/24 02:29 Bacteria identified in Blood by Aerobe culture 2024-06-28 19:28:28 P MICROBIOLOGY - PRELIMINARY REPORT OF: 06/28/24 02:29 Eosinophils/100 leukocytes in Blood by Automated count 2024-06-21 22:32:05 7.9 % F Neutrophils/100 leukocytes in Blood by Automated count 2024-06-21 22:32:05 56.2 % F Basophils/100 leukocytes in Blood by Automated count 2024-06-21 22:32:05 2.4 % F Monocytes/100 leukocytes in Blood by Automated count 2024-06-21 22:32:05 5.1 % F Lymphocytes/100 leukocytes in Blood by Automated count 2024-06-21 22:32:05 28.4 % F Monocytes [#/volume] in Blood by Automated count 2024-06-21 22:32:05 140 Cells/uL F 0.0-1100.0 Eosinophils [#/volume] in Blood by Automated count 2024-06-21 22:32:05 216 Cells/uL F 0.0-700.0 Basophils [#/volume] in Blood by Automated count 2024-06-21 22:32:05 66 Cells/uL F 0.0-400.0 Neutrophils [#/volume] in Blood by Automated count 2024-06-21 22:32:05 1540 Cells/uL F 2000.0-8800. 0 Leukocytes [#/volume] in Blood by Automated count 2024-06-21 22:32:05 2.7 x 10^3 cells/uL F 4.0-11.0 Lymphocytes [#/volume] in Blood by Automated count 2024-06-21 22:32:05 778 Cells/uL F 620.0-3660.0 Monocytes/100 leukocytes in Blood by Automated count 2024-06-05 19:54:31 F RECOLLECT - OUTDATED SPECIMEN Monocytes [#/volume] in Blood by Automated count 2024-06-05 19:54:31 F RECOLLECT - OUTDATED SPECIMEN Basophils/100 leukocytes in Blood by Automated count 2024-06-05 19:54:31 F RECOLLECT - OUTDATED SPECIMEN Lymphocytes [#/volume] in Blood by Automated count 2024-06-05 19:54:31 F RECOLLECT - OUTDATED SPECIMEN Eosinophils [#/volume] in Blood by Automated count 2024-06-05 19:54:31 F RECOLLECT - OUTDATED SPECIMEN Basophils [#/volume] in Blood by Automated count 2024-06-05 19:54:31 F RECOLLECT - OUTDATED SPECIMEN Neutrophils/100 leukocytes in Blood by Automated count 2024-06-05 19:54:31 F RECOLLECT - OUTDATED SPECIMEN Eosinophils/100 leukocytes in Blood by Automated count 2024-06-05 19:54:31 F RECOLLECT - OUTDATED SPECIMEN Lymphocytes/100 leukocytes in Blood by Automated count 2024-06-05 19:54:31 F RECOLLECT - OUTDATED SPECIMEN Neutrophils [#/volume] in Blood by Automated count 2024-06-05 19:54:31 F RECOLLECT - OUTDATED SPECIMEN Leukocytes [#/volume] in Blood by Automated count 2024-06-05 19:54:31 F RECOLLECT - OUTDATED SPECIMEN Lymphocytes [#/volume] in Blood by Automated count 2023-12-21 02:14:37 457 Cell/uL F 620.0-3660.0 Basophils/100 leukocytes in Blood by Automated count 2023-12-21 02:14:37 0.6 % F Monocytes/100 leukocytes in Blood by Automated count 2023-12-21 02:14:37 7.6 % F Lymphocytes/100 leukocytes in Blood by Automated count 2023-12-21 02:14:37 27.7 % F Neutrophils/100 leukocytes in Blood by Automated count 2023-12-21 02:14:37 58.8 % F Eosinophils/100 leukocytes in Blood by Automated count 2023-12-21 02:14:37 5.3 % F Basophils [#/volume] in Blood by Automated count 2023-12-21 02:14:37 10 Cell/uL F 0.0-400.0 Monocytes [#/volume] in Blood by Automated count 2023-12-21 02:14:37 125 Cell/uL F 0.0-1100.0 Eosinophils [#/volume] in Blood by Automated count 2023-12-21 02:14:37 87 Cell/uL F 0.0-700.0 Neutrophils [#/volume] in Blood by Automated count 2023-12-21 02:14:37 970 Cell/uL F 2000.0-8800. 0 Leukocytes [#/volume] in Blood by Automated count 2023-12-21 02:14:37 1.6 x 10^3 cells/uL F 4.0-11.0 Lymphocytes/100 leukocytes in Blood by Automated count 2023-11-22 20:29:39 32.4 % F Monocytes/100 leukocytes in Blood by Automated count 2023-11-22 20:29:39 7.6 % F Eosinophils/100 leukocytes in Blood by Automated count 2023-11-22 20:29:39 5.6 % F Neutrophils/100 leukocytes in Blood by Automated count 2023-11-22 20:29:39 53.4 % F Monocytes [#/volume] in Blood by Automated count 2023-11-22 20:29:39 122 Cell/uL F 0.0-1100.0 Basophils/100 leukocytes in Blood by Automated count 2023-11-22 20:29:39 1 % F Eosinophils [#/volume] in Blood by Automated count 2023-11-22 20:29:39 90 Cell/uL F 0.0-700.0 Basophils [#/volume] in Blood by Automated count 2023-11-22 20:29:39 16 Cell/uL F 0.0-400.0 Neutrophils [#/volume] in Blood by Automated count 2023-11-22 20:29:39 854 Cell/uL F 2000.0-8800. 0 Leukocytes [#/volume] in Blood by Automated count 2023-11-22 20:29:39 1.6 x 10^3 cells/uL F 4.0-11.0 Lymphocytes [#/volume] in Blood by Automated count 2023-11-22 20:29:39 518 Cell/uL F 620.0-3660.0 Eosinophils/100 leukocytes in Blood by Automated count 2023-10-19 15:20:28 5.9 % F Basophils/100 leukocytes in Blood by Automated count 2023-10-19 15:20:28 0.5 % F Neutrophils/100 leukocytes in Blood by Automated count 2023-10-19 15:20:28 62.6 % F Monocytes/100 leukocytes in Blood by Automated count 2023-10-19 15:20:28 7.7 % F Lymphocytes/100 leukocytes in Blood by Automated count 2023-10-19 15:20:28 23.3 % F Basophils [#/volume] in Blood by Automated count 2023-10-19 15:20:28 12 Cell/uL F 0.0-400.0 Monocytes [#/volume] in Blood by Automated count 2023-10-19 15:20:28 181 Cell/uL F 0.0-1100.0 Eosinophils [#/volume] in Blood by Automated count 2023-10-19 15:20:28 139 Cell/uL F 0.0-700.0 Neutrophils [#/volume] in Blood by Automated count 2023-10-19 15:20:28 1471 Cell/uL F 2000.0-8800. 0 Leukocytes [#/volume] in Blood by Automated count 2023-10-19 15:20:28 2.4 x 10^3 cells/uL F 4.0-11.0 Lymphocytes [#/volume] in Blood by Automated count 2023-10-19 15:20:28 548 Cell/uL F 620.0-3660.0 Lymphocytes/100 leukocytes in Blood by Automated count 2023-09-23 03:31:03 21.3 % F Monocytes [#/volume] in Blood by Automated count 2023-09-23 03:31:03 182 Cell/uL F 0.0-1100.0 Basophils [#/volume] in Blood by Automated count 2023-09-23 03:31:03 20 Cell/uL F 0.0-400.0 Eosinophils [#/volume] in Blood by Automated count 2023-09-23 03:31:03 234 Cell/uL F 0.0-700.0 Neutrophils [#/volume] in Blood by Automated count 2023-09-23 03:31:03 2122 Cell/uL F 2000.0-8800. 0 Leukocytes [#/volume] in Blood by Automated count 2023-09-23 03:31:03 3.2 x 10^3 cells/uL F 4.0-11.0 Lymphocytes [#/volume] in Blood by Automated count 2023-09-23 03:31:03 692 Cell/uL F 620.0-3660.0 Eosinophils/100 leukocytes in Blood by Automated count 2023-09-23 03:31:02 7.2 % F Basophils/100 leukocytes in Blood by Automated count 2023-09-23 03:31:02 0.6 % F Monocytes/100 leukocytes in Blood by Automated count 2023-09-23 03:31:02 5.6 % F Neutrophils/100 leukocytes in Blood by Automated count 2023-09-23 03:31:02 65.3 % F Neutrophils/100 leukocytes in Blood by Automated count 2023-08-24 06:35:35 68.6 % F Lymphocytes/100 leukocytes in Blood by Automated count 2023-08-24 06:35:35 21.7 % F Monocytes/100 leukocytes in Blood by Automated count 2023-08-24 06:35:35 4 % F Basophils/100 leukocytes in Blood by Automated count 2023-08-24 06:35:35 0.8 % F Eosinophils/100 leukocytes in Blood by Automated count 2023-08-24 06:35:35 4.9 % F Monocytes [#/volume] in Blood by Automated count 2023-08-24 06:35:35 71 Cell/uL F 0.0-1100.0 Basophils [#/volume] in Blood by Automated count 2023-08-24 06:35:35 14 Cell/uL F 0.0-400.0 Eosinophils [#/volume] in Blood by Automated count 2023-08-24 06:35:35 87 Cell/uL F 0.0-700.0 Neutrophils [#/volume] in Blood by Automated count 2023-08-24 06:35:35 1221 Cell/uL F 2000.0-8800. 0 Leukocytes [#/volume] in Blood by Automated count 2023-08-24 06:35:35 1.8 x 10^3 cells/uL F 4.0-11.0 Lymphocytes [#/volume] in Blood by Automated count 2023-08-24 06:35:35 386 Cell/uL F 620.0-3660.0 Lymphocytes [#/volume] in Blood by Automated count 2023-07-19 17:25:12 445 Cell/uL F 620.0-3660.0 Basophils/100 leukocytes in Blood by Automated count 2023-07-19 17:25:10 0.1 % F Neutrophils/100 leukocytes in Blood by Automated count 2023-07-19 17:25:10 61.7 % F Lymphocytes/100 leukocytes in Blood by Automated count 2023-07-19 17:25:10 24.2 % F Monocytes/100 leukocytes in Blood by Automated count 2023-07-19 17:25:10 6.3 % F Monocytes [#/volume] in Blood by Automated count 2023-07-19 17:25:10 116 Cell/uL F 0.0-1100.0 Eosinophils/100 leukocytes in Blood by Automated count 2023-07-19 17:25:10 7.8 % F Basophils [#/volume] in Blood by Automated count 2023-07-19 17:25:10 2 Cell/uL F 0.0-400.0 Eosinophils [#/volume] in Blood by Automated count 2023-07-19 17:25:10 144 Cell/uL F 0.0-700.0 Neutrophils [#/volume] in Blood by Automated count 2023-07-19 17:25:10 1135 Cell/uL F 2000.0-8800. 0 Leukocytes [#/volume] in Blood by Automated count 2023-07-19 17:25:10 1.8 x 10^3 cells/uL F 4.0-11.0 Lymphocytes/100 leukocytes in Blood by Automated count 2023-06-24 05:18:11 24.3 % F Neutrophils/100 leukocytes in Blood by Automated count 2023-06-24 05:18:11 60.1 % F Monocytes/100 leukocytes in Blood by Automated count 2023-06-24 05:18:11 6.1 % F Eosinophils/100 leukocytes in Blood by Automated count 2023-06-24 05:18:11 7.6 % F Basophils/100 leukocytes in Blood by Automated count 2023-06-24 05:18:11 1.8 % F Monocytes [#/volume] in Blood by Automated count 2023-06-24 05:18:11 93 Cell/uL F 0.0-1100.0 Basophils [#/volume] in Blood by Automated count 2023-06-24 05:18:11 28 Cell/uL F 0.0-400.0 Eosinophils [#/volume] in Blood by Automated count 2023-06-24 05:18:11 116 Cell/uL F 0.0-700.0 Neutrophils [#/volume] in Blood by Automated count 2023-06-24 05:18:11 920 Cell/uL F 2000.0-8800. 0 Leukocytes [#/volume] in Blood by Automated count 2023-06-24 05:18:11 1.5 x 10^3 cells/uL F 4.0-11.0 Lymphocytes [#/volume] in Blood by Automated count 2023-06-24 05:18:11 372 Cell/uL F 620.0-3660.0 Eosinophils/100 leukocytes in Blood by Automated count 2023-05-17 19:56:35 4.3 % F Basophils/100 leukocytes in Blood by Automated count 2023-05-17 19:56:35 0.4 % F Neutrophils/100 leukocytes in Blood by Automated count 2023-05-17 19:56:35 64.7 % F Monocytes/100 leukocytes in Blood by Automated count 2023-05-17 19:56:35 5.5 % F Monocytes [#/volume] in Blood by Automated count 2023-05-17 19:56:35 108 Cell/uL F 0.0-1100.0 Basophils [#/volume] in Blood by Automated count 2023-05-17 19:56:35 8 Cell/uL F 0.0-400.0 Lymphocytes/100 leukocytes in Blood by Automated count 2023-05-17 19:56:35 25.2 % F Eosinophils [#/volume] in Blood by Automated count 2023-05-17 19:56:35 85 Cell/uL F 0.0-700.0 Neutrophils [#/volume] in Blood by Automated count 2023-05-17 19:56:35 1275 Cell/uL F 2000.0-8800. 0 Leukocytes [#/volume] in Blood by Automated count 2023-05-17 19:56:35 2 x 10^3 cells/uL F 4.0-11.0 Lymphocytes [#/volume] in Blood by Automated count 2023-05-17 19:56:35 496 Cell/uL F 620.0-3660.0 Eosinophils/100 leukocytes in Blood by Automated count 2023-04-19 16:58:34 4.3 % F Neutrophils/100 leukocytes in Blood by Automated count 2023-04-19 16:58:34 64.1 % F Monocytes/100 leukocytes in Blood by Automated count 2023-04-19 16:58:34 5.7 % F Basophils/100 leukocytes in Blood by Automated count 2023-04-19 16:58:32 0.2 % F Lymphocytes/100 leukocytes in Blood by Automated count 2023-04-19 16:58:32 25.8 % F Monocytes [#/volume] in Blood by Automated count 2023-04-19 16:58:32 87 Cell/uL F 0.0-1100.0 Basophils [#/volume] in Blood by Automated count 2023-04-19 16:58:32 3 Cell/uL F 0.0-400.0 Eosinophils [#/volume] in Blood by Automated count 2023-04-19 16:58:32 66 Cell/uL F 0.0-700.0 Neutrophils [#/volume] in Blood by Automated count 2023-04-19 16:58:32 981 Cell/uL F 2000.0-8800. 0 Leukocytes [#/volume] in Blood by Automated count 2023-04-19 16:58:32 1.5 x 10^3 cells/uL F 4.0-11.0 Lymphocytes [#/volume] in Blood by Automated count 2023-04-19 16:58:32 395 Cell/uL F 620.0-3660.0 Eosinophils/100 leukocytes in Blood by Automated count 2023-03-23 17:34:37 4.9 % F Basophils/100 leukocytes in Blood by Automated count 2023-03-23 17:34:37 0.2 % F Neutrophils/100 leukocytes in Blood by Automated count 2023-03-23 17:34:37 64.3 % F Monocytes/100 leukocytes in Blood by Automated count 2023-03-23 17:34:37 4.8 % F Lymphocytes/100 leukocytes in Blood by Automated count 2023-03-23 17:34:37 25.9 % F Lymphocytes [#/volume] in Blood by Automated count 2023-03-23 17:34:37 404 Cell/uL F 620.0-3660.0 Monocytes [#/volume] in Blood by Automated count 2023-03-23 17:34:35 75 Cell/uL F 0.0-1100.0 Basophils [#/volume] in Blood by Automated count 2023-03-23 17:34:35 3 Cell/uL F 0.0-400.0 Eosinophils [#/volume] in Blood by Automated count 2023-03-23 17:34:35 76 Cell/uL F 0.0-700.0 Neutrophils [#/volume] in Blood by Automated count 2023-03-23 17:34:35 1003 Cell/uL F 2000.0-8800. 0 Leukocytes [#/volume] in Blood by Automated count 2023-03-23 17:34:35 1.6 x 10^3 cells/uL F 4.0-11.0 Basophils/100 leukocytes in Blood by Automated count 2023-02-23 04:39:54 0.3 % F Monocytes/100 leukocytes in Blood by Automated count 2023-02-23 04:39:54 5.8 % F Eosinophils/100 leukocytes in Blood by Automated count 2023-02-23 04:39:54 4.4 % F Lymphocytes/100 leukocytes in Blood by Automated count 2023-02-23 04:39:54 30.5 % F Monocytes [#/volume] in Blood by Automated count 2023-02-23 04:39:54 122 Cell/uL F 0.0-1100.0 Neutrophils/100 leukocytes in Blood by Automated count 2023-02-23 04:39:54 59 % F Basophils [#/volume] in Blood by Automated count 2023-02-23 04:39:54 6 Cell/uL F 0.0-400.0 Eosinophils [#/volume] in Blood by Automated count 2023-02-23 04:39:54 92 Cell/uL F 0.0-700.0 Neutrophils [#/volume] in Blood by Automated count 2023-02-23 04:39:54 1239 Cell/uL F 2000.0-8800. 0 Leukocytes [#/volume] in Blood by Automated count 2023-02-23 04:39:54 2.1 x 10^3 cells/uL F 4.0-11.0 Lymphocytes [#/volume] in Blood by Automated count 2023-02-23 04:39:54 640 Cell/uL F 620.0-3660.0 Lymphocytes/100 leukocytes in Blood by Automated count 2023-01-19 15:32:09 33.8 % F Basophils/100 leukocytes in Blood by Automated count 2023-01-19 15:32:09 0.5 % F Eosinophils/100 leukocytes in Blood by Automated count 2023-01-19 15:32:09 7 % F Neutrophils/100 leukocytes in Blood by Automated count 2023-01-19 15:32:09 52.9 % F Basophils [#/volume] in Blood by Automated count 2023-01-19 15:32:09 10 Cell/uL F 0.0-400.0 Monocytes [#/volume] in Blood by Automated count 2023-01-19 15:32:09 114 Cell/uL F 0.0-1100.0 Monocytes/100 leukocytes in Blood by Automated count 2023-01-19 15:32:09 5.8 % F Eosinophils [#/volume] in Blood by Automated count 2023-01-19 15:32:09 137 Cell/uL F 0.0-700.0 Neutrophils [#/volume] in Blood by Automated count 2023-01-19 15:32:09 1037 Cell/uL F 2000.0-8800. 0 Leukocytes [#/volume] in Blood by Automated count 2023-01-19 15:32:09 2 x 10^3 cells/uL F 4.0-11.0 Lymphocytes [#/volume] in Blood by Automated count 2023-01-19 15:32:09 662 Cell/uL F 620.0-3660.0 Neutrophils/100 leukocytes in Blood by Automated count 2022-12-21 14:52:12 58.8 % F Monocytes/100 leukocytes in Blood by Automated count 2022-12-21 14:52:12 6.3 % F Lymphocytes/100 leukocytes in Blood by Automated count 2022-12-21 14:52:12 26.4 % F Basophils [#/volume] in Blood by Automated count 2022-12-21 14:52:12 9 Cell/uL F 0.0-400.0 Basophils/100 leukocytes in Blood by Automated count 2022-12-21 14:52:10 0.4 % F Eosinophils/100 leukocytes in Blood by Automated count 2022-12-21 14:52:10 8.1 % F Monocytes [#/volume] in Blood by Automated count 2022-12-21 14:52:10 148 Cell/uL F 0.0-1100.0 Eosinophils [#/volume] in Blood by Automated count 2022-12-21 14:52:10 190 Cell/uL F 0.0-700.0 Neutrophils [#/volume] in Blood by Automated count 2022-12-21 14:52:10 1382 Cell/uL F 2000.0-8800. 0 Leukocytes [#/volume] in Blood by Automated count 2022-12-21 14:52:10 2.4 x 10^3 cells/uL F 4.0-11.0 Lymphocytes [#/volume] in Blood by Automated count 2022-12-21 14:52:10 620 Cell/uL F 620.0-3660.0 Lymphocytes/100 leukocytes in Blood by Automated count 2022-11-17 02:59:16 27.9 % F Basophils/100 leukocytes in Blood by Automated count 2022-11-17 02:59:16 1.6 % F Monocytes/100 leukocytes in Blood by Automated count 2022-11-17 02:59:16 5 % F Eosinophils/100 leukocytes in Blood by Automated count 2022-11-17 02:59:16 6.3 % F Neutrophils/100 leukocytes in Blood by Automated count 2022-11-17 02:59:16 59.2 % F Monocytes [#/volume] in Blood by Automated count 2022-11-17 02:59:16 124.5 Cell/uL F 0.0-1100.0 Basophils [#/volume] in Blood by Automated count 2022-11-17 02:59:16 39.84 Cell/uL F 0.0-400.0 Eosinophils [#/volume] in Blood by Automated count 2022-11-17 02:59:16 156.87 Cell/uL F 0.0-700.0 Lymphocytes [#/volume] in Blood by Automated count 2022-11-17 02:59:16 694.71 Cell/uL F 1100.0-4800. 0 Neutrophils [#/volume] in Blood by Automated count 2022-11-17 02:59:16 1474.08 Cell/uL F 2000.0-8800. 0 Leukocytes [#/volume] in Blood by Automated count 2022-11-17 02:59:16 2.5 x 10^3 cells/uL F 4.5-11.0 Eosinophils/100 leukocytes in Blood by Automated count 2022-10-20 06:33:11 4.6 % F Lymphocytes/100 leukocytes in Blood by Automated count 2022-10-20 06:33:11 29.8 % F Neutrophils/100 leukocytes in Blood by Automated count 2022-10-20 06:33:11 59.3 % F Monocytes/100 leukocytes in Blood by Automated count 2022-10-20 06:33:11 6.1 % F Basophils/100 leukocytes in Blood by Automated count 2022-10-20 06:33:11 0.2 % F Monocytes [#/volume] in Blood by Automated count 2022-10-20 06:33:11 117.73 Cell/uL F 0.0-1100.0 Eosinophils [#/volume] in Blood by Automated count 2022-10-20 06:33:11 88.78 Cell/uL F 0.0-700.0 Basophils [#/volume] in Blood by Automated count 2022-10-20 06:33:11 3.86 Cell/uL F 0.0-400.0 Lymphocytes [#/volume] in Blood by Automated count 2022-10-20 06:33:11 575.14 Cell/uL F 1100.0-4800. 0 Neutrophils [#/volume] in Blood by Automated count 2022-10-20 06:33:11 1144.49 Cell/uL F 2000.0-8800. 0 Leukocytes [#/volume] in Blood by Automated count 2022-10-20 06:33:11 1.9 x 10^3 cells/uL F 4.5-11.0 Basophils/100 leukocytes in Blood by Automated count 2022-09-22 06:59:06 0.4 % F Neutrophils/100 leukocytes in Blood by Automated count 2022-09-22 06:59:06 58.9 % F Lymphocytes/100 leukocytes in Blood by Automated count 2022-09-22 06:59:06 30.3 % F Eosinophils/100 leukocytes in Blood by Automated count 2022-09-22 06:59:06 5.2 % F Monocytes/100 leukocytes in Blood by Automated count 2022-09-22 06:59:06 5.2 % F Monocytes [#/volume] in Blood by Automated count 2022-09-22 06:59:06 158.08 Cell/uL F 0.0-1100.0 Basophils [#/volume] in Blood by Automated count 2022-09-22 06:59:06 12.16 Cell/uL F 0.0-400.0 Eosinophils [#/volume] in Blood by Automated count 2022-09-22 06:59:06 158.08 Cell/uL F 0.0-700.0 Lymphocytes [#/volume] in Blood by Automated count 2022-09-22 06:59:06 921.12 Cell/uL F 1100.0-4800. 0 Neutrophils [#/volume] in Blood by Automated count 2022-09-22 06:59:06 1790.56 Cell/uL F 2000.0-8800. 0 Leukocytes [#/volume] in Blood by Automated count 2022-09-22 06:59:06 3 x 10^3 cells/uL F 4.5-11.0 Lymphocytes/100 leukocytes in Blood by Automated count 2022-08-24 16:06:54 28.3 % F Eosinophils/100 leukocytes in Blood by Automated count 2022-08-24 16:06:54 7 % F Basophils/100 leukocytes in Blood by Automated count 2022-08-24 16:06:54 0.3 % F Monocytes/100 leukocytes in Blood by Automated count 2022-08-24 16:06:54 5 % F Monocytes [#/volume] in Blood by Automated count 2022-08-24 16:06:54 141.5 Cell/uL F 0.0-1100.0 Basophils [#/volume] in Blood by Automated count 2022-08-24 16:06:54 8.49 Cell/uL F 0.0-400.0 Neutrophils/100 leukocytes in Blood by Automated count 2022-08-24 16:06:54 59.5 % F Eosinophils [#/volume] in Blood by Automated count 2022-08-24 16:06:54 198.1 Cell/uL F 0.0-700.0 Lymphocytes [#/volume] in Blood by Automated count 2022-08-24 16:06:54 800.89 Cell/uL F 1100.0-4800. 0 Neutrophils [#/volume] in Blood by Automated count 2022-08-24 16:06:54 1683.85 Cell/uL F 2000.0-8800. 0 Leukocytes [#/volume] in Blood by Automated count 2022-08-24 16:06:54 2.8 x 10^3 cells/uL F 4.5-11.0 Neutrophils/100 leukocytes in Blood by Automated count 2022-07-20 17:06:57 61.8 % F Basophils/100 leukocytes in Blood by Automated count 2022-07-20 17:06:57 0.3 % F Eosinophils/100 leukocytes in Blood by Automated count 2022-07-20 17:06:57 7.9 % F Monocytes/100 leukocytes in Blood by Automated count 2022-07-20 17:06:57 5.9 % F Lymphocytes/100 leukocytes in Blood by Automated count 2022-07-20 17:06:57 24.1 % F Monocytes [#/volume] in Blood by Automated count 2022-07-20 17:06:57 284.97 Cell/uL F 0.0-1100.0 Basophils [#/volume] in Blood by Automated count 2022-07-20 17:06:57 14.49 Cell/uL F 0.0-400.0 Eosinophils [#/volume] in Blood by Automated count 2022-07-20 17:06:57 381.57 Cell/uL F 0.0-700.0 Lymphocytes [#/volume] in Blood by Automated count 2022-07-20 17:06:57 1164.03 Cell/uL F 1100.0-4800. 0 Neutrophils [#/volume] in Blood by Automated count 2022-07-20 17:06:57 2984.94 Cell/uL F 2000.0-8800. 0 Leukocytes [#/volume] in Blood by Automated count 2022-07-20 17:06:57 4.8 x 10^3 cells/uL F 4.5-11.0 Lymphocytes/100 leukocytes in Blood by Automated count 2022-06-23 01:55:46 28.3 % F Eosinophils/100 leukocytes in Blood by Automated count 2022-06-23 01:55:46 6.3 % F Basophils/100 leukocytes in Blood by Automated count 2022-06-23 01:55:46 0.4 % F Neutrophils/100 leukocytes in Blood by Automated count 2022-06-23 01:55:46 60.2 % F Monocytes/100 leukocytes in Blood by Automated count 2022-06-23 01:55:46 4.7 % F Lymphocytes [#/volume] in Blood by Automated count 2022-06-23 01:55:46 721.65 Cell/uL F 1100.0-4800. 0 Neutrophils [#/volume] in Blood by Automated count 2022-06-23 01:55:46 1535.1 Cell/uL F 2000.0-8800. 0 Leukocytes [#/volume] in Blood by Automated count 2022-06-23 01:55:46 2.6 x 10^3 cells/uL F 4.5-11.0 Monocytes [#/volume] in Blood by Automated count 2022-06-23 01:55:44 119.85 Cell/uL F 0.0-1100.0 Basophils [#/volume] in Blood by Automated count 2022-06-23 01:55:44 10.2 Cell/uL F 0.0-400.0 Eosinophils [#/volume] in Blood by Automated count 2022-06-23 01:55:44 160.65 Cell/uL F 0.0-700.0 Phosphate [Mass/volume] in Urine MineralBone Disorder Description Draw Date Result/Unit Status Ref Range Result Comments CA CORRECTED 2024-08-10 11:20:01 9.7 mg/dL F CA/PHOS PRODUCT 2024-08-10 11:17:58 44.2 Calc F 21.0-53.0 CA*PO4 CORRCTD 2024-08-10 11:17:58 46.5 Calc F 21.0-53.0 Phosphate [Mass/volume] in Serum or Plasma 2024-08-10 08:29:00 4.8 mg/dL F 2.4-5.1 Calcium [Mass/volume] in Serum or Plasma 2024-08-10 08:29:00 9.2 mg/dL F 8.7-10.4 Parathyrin.intact [Mass/volume] in Serum or Plasma 2024-08-08 17:24:41 524 pg/mL F 18.0-80.0 CA CORRECTED 2024-07-24 19:26:10 10.1 mg/dL F Calcium [Mass/volume] in Serum or Plasma 2024-07-24 19:02:46 9.6 mg/dL F 8.7-10.4 Alkaline phosphatase [Enzymatic activity/volume] in Serum or Plasma 2024-07-24 15:06:20 138 U/L F 46.0-116.0 CA CORRECTED 2024-07-11 21:00:01 10.3 mg/dL F CA*PO4 CORRCTD 2024-07-11 20:58:38 44.4 Calc F 21.0-53.0 CA/PHOS PRODUCT 2024-07-11 20:58:38 41.3 Calc F 21.0-53.0 Phosphate [Mass/volume] in Serum or Plasma 2024-07-11 19:58:12 4.3 mg/dL F 2.4-5.1 Calcium [Mass/volume] in Serum or Plasma 2024-07-11 19:58:12 9.6 mg/dL F 8.7-10.4 Parathyrin.intact [Mass/volume] in Serum or Plasma 2024-07-11 16:45:20 255 pg/mL F 18.0-80.0 Alkaline phosphatase [Enzymatic activity/volume] in Serum or Plasma 2024-06-22 00:54:16 128 U/L F 46.0-116.0 CA CORRECTED 2024-06-07 09:05:24 8.5 mg/dL F CA*PO4 CORRCTD 2024-06-07 09:04:22 44.2 Calc F 21.0-53.0 CA/PHOS PRODUCT 2024-06-07 09:04:22 44.2 Calc F 21.0-53.0 Calcium [Mass/volume] in Serum or Plasma 2024-06-07 08:04:09 8.5 mg/dL F 8.7-10.4 Parathyrin.intact [Mass/volume] in Serum or Plasma 2024-06-07 01:26:20 320 pg/mL F 18.0-80.0 Phosphate [Mass/volume] in Serum or Plasma 2024-06-06 23:41:26 5.2 mg/dL F 2.4-5.1 CA CORRECTED 2024-06-05 09:43:52 9 mg/dL F Calcium [Mass/volume] in Serum or Plasma 2024-06-05 08:18:40 9 mg/dL F 8.7-10.4 Alkaline phosphatase [Enzymatic activity/volume] in Serum or Plasma 2023-12-20 18:38:32 203 U/L F 46.0-116.0 CA CORRECTED 2023-11-23 04:01:28 9.8 mg/dL F Calcium [Mass/volume] in Serum or Plasma 2023-11-23 03:58:22 9.5 mg/dL F 8.7-10.4 Alkaline phosphatase [Enzymatic activity/volume] in Serum or Plasma 2023-11-22 23:19:30 200 U/L F 46.0-116.0 Alkaline phosphatase [Enzymatic activity/volume] in Serum or Plasma 2023-10-18 19:03:41 157 U/L F 46.0-116.0 Alkaline phosphatase [Enzymatic activity/volume] in Serum or Plasma 2023-09-22 14:34:30 154 U/L F 46.0-116.0 Alkaline phosphatase [Enzymatic activity/volume] in Serum or Plasma 2023-08-24 02:05:11 187 U/L F 46.0-116.0 Alkaline phosphatase [Enzymatic activity/volume] in Serum or Plasma 2023-07-19 16:29:05 170 U/L F 46.0-116.0 Alkaline phosphatase [Enzymatic activity/volume] in Serum or Plasma 2023-06-23 16:04:28 132 U/L F 46.0-116.0 Parathyrin.intact [Mass/volume] in Serum or Plasma 2023-05-18 05:13:30 424 pg/mL F 18.0-80.0 Alkaline phosphatase [Enzymatic activity/volume] in Serum or Plasma 2023-05-17 15:56:35 116 U/L F 46.0-116.0 Alkaline phosphatase [Enzymatic activity/volume] in Serum or Plasma 2023-04-19 15:04:21 176 U/L F 46.0-116.0 Alkaline phosphatase [Enzymatic activity/volume] in Serum or Plasma 2023-03-23 01:14:40 133 U/L F 46.0-116.0 Alkaline phosphatase [Enzymatic activity/volume] in Serum or Plasma 2023-02-22 17:21:34 147 U/L F 46.0-116.0 Alkaline phosphatase [Enzymatic activity/volume] in Serum or Plasma 2023-01-18 23:05:16 163 U/L F 46.0-116.0 Alkaline phosphatase [Enzymatic activity/volume] in Serum or Plasma 2022-12-21 14:25:16 206 U/L F 46.0-116.0 Alkaline phosphatase [Enzymatic activity/volume] in Serum or Plasma 2022-11-16 17:08:17 180 U/L F 46.0-116.0 Alkaline phosphatase [Enzymatic activity/volume] in Serum or Plasma 2022-10-19 17:09:20 155 U/L F 46.0-116.0 Alkaline phosphatase [Enzymatic activity/volume] in Serum or Plasma 2022-09-21 22:49:22 156 U/L F 46.0-116.0 Alkaline phosphatase [Enzymatic activity/volume] in Serum or Plasma 2022-08-24 15:28:03 131 U/L F 46.0-116.0 Alkaline phosphatase [Enzymatic activity/volume] in Serum or Plasma 2022-07-20 16:45:46 176 U/L F 46.0-116.0 Alkaline phosphatase [Enzymatic activity/volume] in Serum or Plasma 2022-06-22 22:30:41 149 U/L F 46.0-116.0 Nutrition Description Draw Date Result/Unit Status Ref Range Result Comments Potassium [Moles/volume] in Serum or Plasma 2024-07-24 19:02:46 4.1 mEq/L F 3.5-5.5 GLOBULIN 2024-07-24 15:07:16 3 g/dL F 0.9-5.0 A/G RATIO 2024-07-24 15:07:16 1.1 Calc F 1.0-2.5 Lactate dehydrogenase [Enzymatic activity/volume] in Serum or Plasma 2024-07-24 15:06:20 159 U/L F 120.0-246.0 Bicarbonate [Moles/volume] in Serum or Plasma 2024-07-24 15:06:20 27 mEq/L F 20.0-31.0 Albumin [Mass/volume] in Serum or Plasma by Bromocresol green (BCG) dye binding method 2024-07-24 15:06:20 3.4 g/dL F 3.4-4.8 Protein [Mass/volume] in Serum or Plasma 2024-07-24 15:06:20 6.4 g/dL F 5.7-8.2 Glucose [Mass/volume] in Serum or Plasma 2024-07-24 15:06:20 138 mg/dL F 70.0-99.0 Potassium [Moles/volume] in Serum or Plasma 2024-06-22 04:52:32 5.2 mEq/L F 3.5-5.5 GLOBULIN 2024-06-22 00:55:21 3 g/dL F 0.9-5.0 A/G RATIO 2024-06-22 00:55:21 1 Calc F 1.0-2.5 Lactate dehydrogenase [Enzymatic activity/volume] in Serum or Plasma 2024-06-22 00:54:16 196 U/L F 120.0-246.0 Bicarbonate [Moles/volume] in Serum or Plasma 2024-06-22 00:54:16 20 mEq/L F 20.0-31.0 Albumin [Mass/volume] in Serum or Plasma by Bromocresol green (BCG) dye binding method 2024-06-22 00:54:16 3.1 g/dL F 3.4-4.8 Protein [Mass/volume] in Serum or Plasma 2024-06-22 00:54:16 6.1 g/dL F 5.7-8.2 Glucose [Mass/volume] in Serum or Plasma 2024-06-22 00:54:16 127 mg/dL F 70.0-99.0 Potassium [Moles/volume] in Serum or Plasma 2023-12-21 04:59:17 4 mEq/L F 3.5-5.5 GLOBULIN 2023-12-20 18:39:02 2.7 g/dL F 0.9-5.0 A/G RATIO 2023-12-20 18:39:02 1.3 Calc F 1.0-2.5 Protein [Mass/volume] in Serum or Plasma 2023-12-20 18:38:32 6.2 g/dL F 5.7-8.2 Glucose [Mass/volume] in Serum or Plasma 2023-12-20 18:38:32 152 mg/dL F 70.0-99.0 Lactate dehydrogenase [Enzymatic activity/volume] in Serum or Plasma 2023-12-20 18:38:32 142 U/L F 120.0-246.0 Bicarbonate [Moles/volume] in Serum or Plasma 2023-12-20 18:38:32 27 mEq/L F 20.0-31.0 Albumin [Mass/volume] in Serum or Plasma by Bromocresol green (BCG) dye binding method 2023-12-20 18:38:32 3.5 g/dL F 3.4-4.8 Potassium [Moles/volume] in Serum or Plasma 2023-11-23 03:58:22 4.9 mEq/L F 3.5-5.5 A/G RATIO 2023-11-22 23:20:13 1.3 Calc F 1.0-2.5 GLOBULIN 2023-11-22 23:20:13 2.8 g/dL F 0.9-5.0 Lactate dehydrogenase [Enzymatic activity/volume] in Serum or Plasma 2023-11-22 23:19:30 193 U/L F 120.0-246.0 Bicarbonate [Moles/volume] in Serum or Plasma 2023-11-22 23:19:30 26 mEq/L F 20.0-31.0 Albumin [Mass/volume] in Serum or Plasma by Bromocresol green (BCG) dye binding method 2023-11-22 23:19:30 3.6 g/dL F 3.4-4.8 Protein [Mass/volume] in Serum or Plasma 2023-11-22 23:19:30 6.4 g/dL F 5.7-8.2 Glucose [Mass/volume] in Serum or Plasma 2023-11-22 23:19:30 135 mg/dL F 70.0-99.0 Potassium [Moles/volume] in Serum or Plasma 2023-10-19 06:00:49 4.5 mEq/L F 3.5-5.5 GLOBULIN 2023-10-18 19:04:31 2.9 g/dL F 0.9-5.0 A/G RATIO 2023-10-18 19:04:31 1.3 Calc F 1.0-2.5 Lactate dehydrogenase [Enzymatic activity/volume] in Serum or Plasma 2023-10-18 19:03:41 203 U/L F 120.0-246.0 Bicarbonate [Moles/volume] in Serum or Plasma 2023-10-18 19:03:41 26 mEq/L F 20.0-31.0 Albumin [Mass/volume] in Serum or Plasma by Bromocresol green (BCG) dye binding method 2023-10-18 19:03:41 3.8 g/dL F 3.4-4.8 Protein [Mass/volume] in Serum or Plasma 2023-10-18 19:03:41 6.7 g/dL F 5.7-8.2 Glucose [Mass/volume] in Serum or Plasma 2023-10-18 19:03:41 128 mg/dL F 70.0-99.0 Potassium [Moles/volume] in Serum or Plasma 2023-09-22 18:11:10 5.1 mEq/L F 3.5-5.5 GLOBULIN 2023-09-22 14:35:19 2.9 g/dL F 0.9-5.0 A/G RATIO 2023-09-22 14:35:19 1.3 Calc F 1.0-2.5 Lactate dehydrogenase [Enzymatic activity/volume] in Serum or Plasma 2023-09-22 14:34:30 202 U/L F 120.0-246.0 Bicarbonate [Moles/volume] in Serum or Plasma 2023-09-22 14:34:30 23 mEq/L F 20.0-31.0 Albumin [Mass/volume] in Serum or Plasma by Bromocresol green (BCG) dye binding method 2023-09-22 14:34:30 3.8 g/dL F 3.4-4.8 Protein [Mass/volume] in Serum or Plasma 2023-09-22 14:34:30 6.7 g/dL F 5.7-8.2 Glucose [Mass/volume] in Serum or Plasma 2023-09-22 14:34:30 115 mg/dL F 70.0-99.0 Potassium [Moles/volume] in Serum or Plasma 2023-08-24 06:18:39 4.6 mEq/L F 3.5-5.5 GLOBULIN 2023-08-24 02:05:22 2.8 g/dL F 0.9-5.0 A/G RATIO 2023-08-24 02:05:22 1.3 Calc F 1.0-2.5 Lactate dehydrogenase [Enzymatic activity/volume] in Serum or Plasma 2023-08-24 02:05:11 184 U/L F 120.0-246.0 Bicarbonate [Moles/volume] in Serum or Plasma 2023-08-24 02:05:08 25 mEq/L F 20.0-31.0 Albumin [Mass/volume] in Serum or Plasma by Bromocresol green (BCG) dye binding method 2023-08-24 02:05:08 3.7 g/dL F 3.4-4.8 Protein [Mass/volume] in Serum or Plasma 2023-08-24 02:05:08 6.5 g/dL F 5.7-8.2 Glucose [Mass/volume] in Serum or Plasma 2023-08-24 02:05:08 117 mg/dL F 70.0-99.0 Potassium [Moles/volume] in Serum or Plasma 2023-07-19 20:21:41 4.4 mEq/L F 3.5-5.5 GLOBULIN 2023-07-19 16:29:09 2.9 g/dL F 0.9-5.0 A/G RATIO 2023-07-19 16:29:09 1.3 Calc F 1.0-2.5 Lactate dehydrogenase [Enzymatic activity/volume] in Serum or Plasma 2023-07-19 16:29:05 160 U/L F 120.0-246.0 Bicarbonate [Moles/volume] in Serum or Plasma 2023-07-19 16:29:05 25 mEq/L F 20.0-31.0 Albumin [Mass/volume] in Serum or Plasma by Bromocresol green (BCG) dye binding method 2023-07-19 16:29:05 3.7 g/dL F 3.4-4.8 Protein [Mass/volume] in Serum or Plasma 2023-07-19 16:29:05 6.6 g/dL F 5.7-8.2 Glucose [Mass/volume] in Serum or Plasma 2023-07-19 16:29:05 114 mg/dL F 70.0-99.0 Potassium [Moles/volume] in Serum or Plasma 2023-06-23 21:17:18 5.3 mEq/L F 3.5-5.5 GLOBULIN 2023-06-23 16:04:42 2.6 g/dL F 0.9-5.0 A/G RATIO 2023-06-23 16:04:42 1.4 Calc F 1.0-2.5 Lactate dehydrogenase [Enzymatic activity/volume] in Serum or Plasma 2023-06-23 16:04:28 159 U/L F 120.0-246.0 Bicarbonate [Moles/volume] in Serum or Plasma 2023-06-23 16:04:28 22 mEq/L F 20.0-31.0 Albumin [Mass/volume] in Serum or Plasma by Bromocresol green (BCG) dye binding method 2023-06-23 16:04:28 3.7 g/dL F 3.4-4.8 Protein [Mass/volume] in Serum or Plasma 2023-06-23 16:04:28 6.3 g/dL F 5.7-8.2 Glucose [Mass/volume] in Serum or Plasma 2023-06-23 16:04:28 112 mg/dL F 70.0-99.0 GLOBULIN 2023-05-17 15:57:33 2.6 g/dL F 0.9-5.0 A/G RATIO 2023-05-17 15:57:33 1.4 Calc F 1.0-2.5 Lactate dehydrogenase [Enzymatic activity/volume] in Serum or Plasma 2023-05-17 15:56:35 174 U/L F 120.0-246.0 Bicarbonate [Moles/volume] in Serum or Plasma 2023-05-17 15:56:35 20 mEq/L F 20.0-31.0 Potassium [Moles/volume] in Serum or Plasma 2023-05-17 15:56:35 4.5 mEq/L F 3.5-5.5 Albumin [Mass/volume] in Serum or Plasma by Bromocresol green (BCG) dye binding method 2023-05-17 15:56:35 3.6 g/dL F 3.4-4.8 Protein [Mass/volume] in Serum or Plasma 2023-05-17 15:56:35 6.2 g/dL F 5.7-8.2 Glucose [Mass/volume] in Serum or Plasma 2023-05-17 15:56:35 103 mg/dL F 70.0-99.0 GLOBULIN 2023-04-19 15:05:06 2.6 g/dL F 0.9-5.0 A/G RATIO 2023-04-19 15:05:06 1.5 Calc F 1.0-2.5 Lactate dehydrogenase [Enzymatic activity/volume] in Serum or Plasma 2023-04-19 15:04:21 164 U/L F 120.0-246.0 Bicarbonate [Moles/volume] in Serum or Plasma 2023-04-19 15:04:21 27 mEq/L F 20.0-31.0 Albumin [Mass/volume] in Serum or Plasma by Bromocresol green (BCG) dye binding method 2023-04-19 15:04:21 3.8 g/dL F 3.4-4.8 Potassium [Moles/volume] in Serum or Plasma 2023-04-19 15:04:21 4.5 mEq/L F 3.5-5.5 Glucose [Mass/volume] in Serum or Plasma 2023-04-19 15:04:21 140 mg/dL F 70.0-99.0 Protein [Mass/volume] in Serum or Plasma 2023-04-19 15:04:21 6.4 g/dL F 5.7-8.2 A/G RATIO 2023-03-23 01:14:49 1.4 Calc F 1.0-2.5 GLOBULIN 2023-03-23 01:14:49 2.6 g/dL F 0.9-5.0 Lactate dehydrogenase [Enzymatic activity/volume] in Serum or Plasma 2023-03-23 01:14:40 153 U/L F 120.0-246.0 Bicarbonate [Moles/volume] in Serum or Plasma 2023-03-23 01:14:40 27 mEq/L F 20.0-31.0 Albumin [Mass/volume] in Serum or Plasma by Bromocresol green (BCG) dye binding method 2023-03-23 01:14:40 3.6 g/dL F 3.4-4.8 Potassium [Moles/volume] in Serum or Plasma 2023-03-23 01:14:40 3.9 mEq/L F 3.5-5.5 Protein [Mass/volume] in Serum or Plasma 2023-03-23 01:14:40 6.2 g/dL F 5.7-8.2 Glucose [Mass/volume] in Serum or Plasma 2023-03-23 01:14:40 155 mg/dL F 70.0-99.0 GLOBULIN 2023-02-22 17:21:44 2.6 g/dL F 0.9-5.0 A/G RATIO 2023-02-22 17:21:44 1.5 Calc F 1.0-2.5 Lactate dehydrogenase [Enzymatic activity/volume] in Serum or Plasma 2023-02-22 17:21:34 168 U/L F 120.0-246.0 Bicarbonate [Moles/volume] in Serum or Plasma 2023-02-22 17:21:34 22 mEq/L F 20.0-31.0 Albumin [Mass/volume] in Serum or Plasma by Bromocresol green (BCG) dye binding method 2023-02-22 17:21:34 3.9 g/dL F 3.4-4.8 Potassium [Moles/volume] in Serum or Plasma 2023-02-22 17:21:34 5 mEq/L F 3.5-5.5 Protein [Mass/volume] in Serum or Plasma 2023-02-22 17:21:34 6.5 g/dL F 5.7-8.2 Glucose [Mass/volume] in Serum or Plasma 2023-02-22 17:21:34 86 mg/dL F 70.0-99.0 GLOBULIN 2023-01-18 23:06:11 2.7 g/dL F 0.9-5.0 A/G RATIO 2023-01-18 23:06:11 1.4 Calc F 1.0-2.5 Protein [Mass/volume] in Serum or Plasma 2023-01-18 23:05:17 6.4 g/dL F 5.7-8.2 Lactate dehydrogenase [Enzymatic activity/volume] in Serum or Plasma 2023-01-18 23:05:16 154 U/L F 120.0-246.0 Bicarbonate [Moles/volume] in Serum or Plasma 2023-01-18 23:05:16 26 mEq/L F 20.0-31.0 Albumin [Mass/volume] in Serum or Plasma by Bromocresol green (BCG) dye binding method 2023-01-18 23:05:16 3.7 g/dL F 3.4-4.8 Potassium [Moles/volume] in Serum or Plasma 2023-01-18 23:05:16 4.2 mEq/L F 3.5-5.5 Glucose [Mass/volume] in Serum or Plasma 2023-01-18 23:05:16 150 mg/dL F 70.0-99.0 GLOBULIN 2022-12-21 14:26:00 2.8 g/dL F 0.9-5.0 A/G RATIO 2022-12-21 14:26:00 1.3 Calc F 1.0-2.5 Lactate dehydrogenase [Enzymatic activity/volume] in Serum or Plasma 2022-12-21 14:25:16 148 U/L F 120.0-246.0 Bicarbonate [Moles/volume] in Serum or Plasma 2022-12-21 14:25:16 25 mEq/L F 20.0-31.0 Albumin [Mass/volume] in Serum or Plasma by Bromocresol green (BCG) dye binding method 2022-12-21 14:25:16 3.7 g/dL F 3.4-4.8 Potassium [Moles/volume] in Serum or Plasma 2022-12-21 14:25:16 4.4 mEq/L F 3.5-5.5 Protein [Mass/volume] in Serum or Plasma 2022-12-21 14:25:16 6.5 g/dL F 5.7-8.2 Glucose [Mass/volume] in Serum or Plasma 2022-12-21 14:25:16 105 mg/dL F 70.0-99.0 A/G RATIO 2022-11-16 17:08:49 1.5 Calc F 1.0-2.5 GLOBULIN 2022-11-16 17:08:49 2.6 g/dL F 0.9-5.0 Lactate dehydrogenase [Enzymatic activity/volume] in Serum or Plasma 2022-11-16 17:08:17 145 U/L F 120.0-246.0 Bicarbonate [Moles/volume] in Serum or Plasma 2022-11-16 17:08:17 24 mEq/L F 20.0-31.0 Albumin [Mass/volume] in Serum or Plasma by Bromocresol green (BCG) dye binding method 2022-11-16 17:08:17 3.8 g/dL F 3.4-4.8 Potassium [Moles/volume] in Serum or Plasma 2022-11-16 17:08:17 4.3 mEq/L F 3.5-5.5 Protein [Mass/volume] in Serum or Plasma 2022-11-16 17:08:17 6.4 g/dL F 5.7-8.2 Glucose [Mass/volume] in Serum or Plasma 2022-11-16 17:08:17 194 mg/dL F 70.0-99.0 GLOBULIN 2022-10-19 17:09:59 2.5 g/dL F 0.9-5.0 A/G RATIO 2022-10-19 17:09:59 1.5 Calc F 1.0-2.5 Lactate dehydrogenase [Enzymatic activity/volume] in Serum or Plasma 2022-10-19 17:09:20 165 U/L F 120.0-246.0 Bicarbonate [Moles/volume] in Serum or Plasma 2022-10-19 17:09:20 25 mEq/L F 20.0-31.0 Potassium [Moles/volume] in Serum or Plasma 2022-10-19 17:09:20 5 mEq/L F 3.5-5.5 Albumin [Mass/volume] in Serum or Plasma by Bromocresol green (BCG) dye binding method 2022-10-19 17:09:20 3.7 g/dL F 3.4-4.8 Glucose [Mass/volume] in Serum or Plasma 2022-10-19 17:09:20 118 mg/dL F 70.0-99.0 Protein [Mass/volume] in Serum or Plasma 2022-10-19 17:09:20 6.2 g/dL F 5.7-8.2 GLOBULIN 2022-09-21 22:50:08 2.7 g/dL F 0.9-5.0 A/G RATIO 2022-09-21 22:50:08 1.5 Calc F 1.0-2.5 Lactate dehydrogenase [Enzymatic activity/volume] in Serum or Plasma 2022-09-21 22:49:22 141 U/L F 120.0-246.0 Bicarbonate [Moles/volume] in Serum or Plasma 2022-09-21 22:49:22 26 mEq/L F 20.0-31.0 Albumin [Mass/volume] in Serum or Plasma by Bromocresol green (BCG) dye binding method 2022-09-21 22:49:22 4 g/dL F 3.4-4.8 Potassium [Moles/volume] in Serum or Plasma 2022-09-21 22:49:22 4.7 mEq/L F 3.5-5.5 Protein [Mass/volume] in Serum or Plasma 2022-09-21 22:49:22 6.7 g/dL F 5.7-8.2 Glucose [Mass/volume] in Serum or Plasma 2022-09-21 22:49:22 135 mg/dL F 70.0-99.0 A/G RATIO 2022-08-24 15:28:20 1.5 Calc F 1.0-2.5 GLOBULIN 2022-08-24 15:28:20 2.6 g/dL F 0.9-5.0 Lactate dehydrogenase [Enzymatic activity/volume] in Serum or Plasma 2022-08-24 15:28:03 139 U/L F 120.0-246.0 Bicarbonate [Moles/volume] in Serum or Plasma 2022-08-24 15:28:03 27 mEq/L F 20.0-31.0 Potassium [Moles/volume] in Serum or Plasma 2022-08-24 15:28:03 4.4 mEq/L F 3.5-5.5 Albumin [Mass/volume] in Serum or Plasma by Bromocresol green (BCG) dye binding method 2022-08-24 15:28:03 4 g/dL F 3.4-4.8 Protein [Mass/volume] in Serum or Plasma 2022-08-24 15:28:03 6.6 g/dL F 5.7-8.2 Glucose [Mass/volume] in Serum or Plasma 2022-08-24 15:28:03 104 mg/dL F 70.0-99.0 GLOBULIN 2022-07-20 16:46:43 2.9 g/dL F 0.9-5.0 A/G RATIO 2022-07-20 16:46:43 1.5 Calc F 1.0-2.5 Lactate dehydrogenase [Enzymatic activity/volume] in Serum or Plasma 2022-07-20 16:45:46 152 U/L F 120.0-246.0 Bicarbonate [Moles/volume] in Serum or Plasma 2022-07-20 16:45:46 24 mEq/L F 20.0-31.0 Albumin [Mass/volume] in Serum or Plasma by Bromocresol green (BCG) dye binding method 2022-07-20 16:45:46 4.3 g/dL F 3.4-4.8 Potassium [Moles/volume] in Serum or Plasma 2022-07-20 16:45:46 4.6 mEq/L F 3.5-5.5 Protein [Mass/volume] in Serum or Plasma 2022-07-20 16:45:46 7.2 g/dL F 5.7-8.2 Glucose [Mass/volume] in Serum or Plasma 2022-07-20 16:45:46 149 mg/dL F 70.0-99.0 GLOBULIN 2022-06-22 22:30:49 2.5 g/dL F 0.9-5.0 A/G RATIO 2022-06-22 22:30:49 1.6 Calc F 1.0-2.5 Lactate dehydrogenase [Enzymatic activity/volume] in Serum or Plasma 2022-06-22 22:30:41 145 U/L F 120.0-246.0 Bicarbonate [Moles/volume] in Serum or Plasma 2022-06-22 22:30:41 29 mEq/L F 20.0-31.0 Albumin [Mass/volume] in Serum or Plasma by Bromocresol green (BCG) dye binding method 2022-06-22 22:30:41 4 g/dL F 3.4-4.8 Potassium [Moles/volume] in Serum or Plasma 2022-06-22 22:30:41 4.7 mEq/L F 3.5-5.5 Protein [Mass/volume] in Serum or Plasma 2022-06-22 22:30:41 6.5 g/dL F 5.7-8.2 Glucose [Mass/volume] in Serum or Plasma 2022-06-22 22:30:41 97 mg/dL F 70.0-99.0 Encounters No encounter information to report Immunizations Ordered Immunization Name Filled Immunization Name Date Status Comments Refusal Reason Pneumococcal conjugate PCV20, polysaccharide [id number] conjugate, adjuvant, PF 2024-07-01 14:00:00 Influenza, MDCK, trivalent, preservative 2024-04-07 13:34:29 TST-PPD intradermal 2024-02-25 10:05:00 TST-PPD intradermal 2023-12-12 10:15:00 Hep B, adult 2023-10-17 14:18:00 Hep B, adult 2023-06-22 15:17:22 Hep B, adult 2023-05-16 14:43:01 Hep B, adult 2023-04-18 14:06:08 TST-PPD intradermal 2023-02-07 10:15:00 Influenza Vaccination 2022-03-28 05:00:00 Covid-19 Vaccination 2020-09-16 08:00:00 Plan of Treatment Planned Activity Provider Planned Date Details Commen ts Diagnostic Test Pending [facility] 2024-08-09 07:29:32 Calcium [Mass/volume] in Serum or Plasma [code = 37438-8] Diagnostic Test Pending [facility] 2023-04-01 05:00:00 Alanine aminotransferase [Enzymatic activity/volume] in Serum or Plasma [code = 1742-6] Diagnostic Test Pending [facility] 2024-08-02 07:25:07 Ferritin [Mass/volume] in Serum or Plasma [code = 2276-4] Diagnostic Test Pending [facility] 2022-07-02 06:00:00 Aluminum [Mass/volume] in Serum or Plasma [code = 5574-9] Diagnostic Test Pending [facility] 2024-03-22 06:30:53 Hemoglobin [Mass/volume] in Blood [code = 718-7] Diagnostic Test Pending [facility] 2022-06-12 07:36:39 Parathyrin.intact [Mass/volume] in Serum or Plasma [code = 2731-8] Diagnostic Test Pending [facility] 2022-06-11 06:00:00 Sodium [Moles/volume] in Serum or Plasma [code = 2951-2] Diagnostic Test Pending [facility] 2022-06-11 06:00:00 Creatinine [Mass/volume] in Serum or Plasma [code = 2160-0] [facility] 2022-[facility]-11 06:00:00 Albumin [Mass/volume] in Serum or Plasma by Bromocresol green (BCG) dye binding method [code = 98380-6] [facility] 2022-06-11 06:00:00 Glucose [Mass/volume] in Serum or Plasma [code = 2345-7] [facility] 2024-07-28 20:09:25 In-Center Hemodialysis Treatment [code = DOF879] Diet Order [facility] June 05, 2022 Diet Calorie 30 kcal/kg Fluid Value 1000 mL/d Phosphorus Value 960 mg/d Potassium Value 2000 mg/d Protein Value 1.2 gm/kg Sodium Value 2000 mg/d Calculated Weight 80 kg
--- OUTSIDE RECORDS SUMMARY | 2024-08-12 09:10 | XMS_ITS | Clinical Summary ---
Author Organization [facility] the [facility] [place] Address [address] [place] [address] Care Team Providers Care Senior Product Integrity Engineer Name Role Phone Dm Pnea MD Primary Care Provider [phone] Sarah Jimenez RN Unavailable [phone] Hermelindo Avilez MD Unavailable [phone] Allergies Active Allergy Reactions Criticality Noted Date [...] Essential hypertension 06/30/2020 Male infertility, unspecified 01/19/2011 Encounters Date Type Department Care Team Description 07/03/2024 Telephone [facility] Trans[facility] Kidney [address] [facility] [address] Mailstop [id number] [place] [address] Salena Mcdowell 07/03/2024 Telephone [facility] Transplant Kidney [address] Mailstop [id number] [place] [address] Shahida Avila from Last 3 Months Surgical History Surgery Date Site/Laterality Comments RI VASECTOMY UNI/BI SPX W/PO STOP SEMEN EXAMS Surgery Vas Deferens Vasectomy - 2002 (Added by TW Conv) KNEE SURGERY Knee Surgery - bilateral (Added by TW Conv) ESOPHAGOGASTRODUODENOSCOPY RENAL BIOPSY CARDIAC CATHETERIZATION PARACENTESIS COLONOSCOPY US ABDOMEN COMPLETE W LIVER DOPPLER (C) 09/21/2020 Right Medical History Medical History Date Comments Personal history of other di seases of urinary system 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 on file Not on file Not on file Obstetrics History Last Filed Vital Signs Vital Sign Reading [...] Insurance [place] [facility] Address: [address] [address] [place] [address] [place] MEDICARE Care Teams Senior Product Integrity Engineer Relationship Specialty Start Date End Date Dm Pena MD [address] [place] [id number] PCP - General 03/05/19 Sarah Jimenez, RN [address] [address] Children'S Minister 09/23/20 Hermelindo Avilez MD [address] [address] Referring Physician Nephrology 09/23/20
--- OUTSIDE RECORDS SUMMARY | 2024-08-12 09:10 | XMS_ITS | Clinical Summary ---
Author Organization [facility] [email or web address] Address [address] [place] [address] Care Team Providers Care Traffic Supervisor Name Role Phone Efren Ramirez DO Primary Care Provider Source Comments [facility],non-owned Affiliates and Associated Physician Practices is amultiple site organization consisting of ambulatory clinics and hospital sitesin [place], [place], [place] and [place]. This disclosure is being madepursuant to the Care Everywhere program and may not contain all information available regarding this patient. 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 [...] 80 PTH Intact 546.1 (H) 12/07/22 13:03 Bljgw-8-Tazagzupceq 119 Vypwk-9-Mfedkkuxddk Phenotype M1S Ceruloplasmin 25 Osmolality Calculated 301 [...] 23.0 - 38.4 Seconds 38.9 (H) PTT 1/ Mix 32 - 48 sec 41 42 Reptilase Time <=21.9 sec 21.6 Not Applicable Thrombin Time 14.7 - 19.5 sec 19.7 (H) 19.2 Cardiolipin Antibody IgG <=14 GPL <10 <10 Cardiolipin Antibody IgM <=12 MPL <10 <10 Beta-2 Glycoprotein Antibody IgG <=20 SGU <10 <10 Beta-2 Glycoprotein Antibody IgM <=20 SMU <10 <10 04/26/23 09:45 04/26/23 09:46 dsDNA Antibody 15 Fofana/PLATER HELPER Antibodies 2 Fofana (FRANCESCA) Antibody 6 Complement [...] a Liver/Kidney Transplant from a Nutrition standpoint. 11/23/23 Clinical Social Work Impression: It is the impression of this social media sr strategy manager that Jj Cuello has several positive factors for Liver/Kidney transplant candidacy including knowledge of illness, sufficient insurance coverage, stable financial situation for post transplant needs, adequate support system, and appropriate discharge plan. Pt has committed to lifelong abstinence and will maintain alcohol free household RP/Provider impression scanned to file Court docs scanned to file Provider impression charted 11/20 Plan: steam table worker to provide supportive services as needed. Patient appears to be a reasonable candidate for transplant from a psychosocial perspective. Post transplant arrangement forms are needed prior to being listed. Psychiatric Consult Recommended: no Transplant Outsole Flexer: Tala Villalta LCSW Liver Transplant Education 12/07/2022 Linh Forde, bobbin cleaning machine operatorReal Estate Coordinator ENT 11/29/22 - +chew tobacco Findings: -No [...] committee and are final. Amelia Corral MD low pressure kettle operator Transplant Surgery [facility] Transplant Surgery Consultation 01/21/24 Dr. oCrral - need note Transplant Nephrology Consultation 01/29/23 I consider the patient an excellent candidate for a simultaneous Liver-Kidney Transplantation. The patient needs ECHO of heart due to a grade 2-3/6 systolic murmur all over the anterior precordium radiating to carotids and anterior Lt axillary line. Also check Anti-DS-DNA Ab, Anti-Fofana Ab, Anti-PLATER HELPER Ab, C3, C4, CH50, Lupus anticoagulants titer. [...] of plan of care listed above. Neurology 4.30.24 Assessment and Plan: 57 year old male [...] ESRD (end stage renal disease) 06/11/2024 06/11/2024 Encounters Date Type Department Care Team Description 08/07/2024 Telephone [facility] - Pulmonology [address], [place] [address] Yaima Dobbins MD 08/05/2024 8:40 PM SOLID PLASTERER - 08/05/2024 8:52 PM SOLID PLASTERER Emergency [facility] EMERGENCY DEPARTMENT [address] [place] [address] Discharge Disposition: Left Against Medical Advice/Discontinued Care 08/05/2024 10:00 AM SOLID PLASTERER Clinical Support [facility] TXP [facility] CSM 3L [address] [facility] [place] [address] Unknown, Provider S/P hernia repair 08/05/2024 Travel 07/24/2024 7:05 AM SOLID PLASTERER - 07/24/2024 11:59 PM SOLID PLASTERER Hospital Encounter [facility] LAB OP DRAW STATION [address] [place] [address] Discharge Disposition: Home or Self Care 07/24/2024 Travel 07/22/2024 Telephone [facility] - [address] [place] [address] Jackson Melvin MD Physical Therapy 07/11/2024 7:29 AM SOLID PLASTERER Anesthesia Event [facility] LANETTE OP [address] [place] [address] Pawan Lynn DO Keeven, Shi Ceja, EXTERMINATOR-MANAGER ASSET 07/11/2024 7:05 AM SOLID PLASTERER - 07/11/2024 9:28 AM SOLID PLASTERER Surgery [facility] LANETTE OP [address] [place] [address] Theron Medellin MD Open right inguinal hernia repair with mesh 07/11/2024 5:06 AM SOLID PLASTERER - 07/11/2024 12:42 PM SOLID PLASTERER Hospital Encounter [facility] LANETTE OP [address] [place] [address] Theron Medellin MD Surgery General Discharge Disposition: Home or Self Care 07/11/2024 Travel 07/08/2024 12:50 PM SOLID PLASTERER - 07/08/2024 11:59 PM SOLID PLASTERER Hospital Encounter [facility] LAB OP DRAW STATION [address] [place] [address] Unknown, Provider Discharge Disposition: Home or Self Care 07/08/2024 12:12 PM SOLID PLASTERER - 07/08/2024 12:49 PM SOLID PLASTERER Hospital Encounter [facility] [address] [place] [address] Unknown, Provider Theron Medellin MD Discharge Disposition: Home or Self Care 07/08/2024 11:00 AM SOLID PLASTERER Office Visit [facility] TXP [facility] CSM [address]L [address] [place] [address] Unknown, Provider Inguinal hernia of right side without obstruction or gangrene (Primary Dx); Alcoholic cirrhosis of liver without ascites (HCC); Pre-op evaluation 07/08/2024 Travel 07/07/2024 Travel 06/26/2024 7:10 AM SOLID PLASTERER - 06/26/2024 11:59 PM SOLID PLASTERER Hospital Encounter [facility] LAB OP DRAW STATION [address] [place] [address] Unknown, Provider Discharge Disposition: Home or Self Care 06/26/2024 Travel 06/18/2024 7:40 AM SOLID PLASTERER - 06/18/2024 11:59 PM SOLID PLASTERER Hospital Encounter [facility] LAB OP DRAW STATION [address] [place] [address] Melecio Graves MD Discharge Disposition: Home or Self Care 06/18/2024 Telephone [facility] - GI [address] [place] [phone] Melecio Graves MD Future Appointment (Called pt and left vm about setting up an appt with Dr. Graves for this Sunday, 06/20.) 06/18/2024 Telephone [facility] - GI [address] [place] [phone] Melecio Graves MD Appointment 06/17/2024 Travel 06/17/2024 Telephone Transitional Care at [address] [address] Carolyn Guzman, senior business objects developer 06/16/2024 Telephone Transitional Care at [address] [address] Melissa Leonard, senior business objects developer 06/11/2024 1:36 PM SOLID PLASTERER - 06/14/2024 11:00 AM SOLID PLASTERER Hospital Encounter [facility] SHORT STAY UNIT [address] [place] [address] Sandro Davis MD Ishiyama, Takaaki, MD Qureshi, Kamran, MD Emergency Medicine Discharge Disposition: Home or Self Care 06/11/2024 Travel 06/06/2024 Telephone [facility] - [address] [address] Roman Mario, DIVINE Follow-up 06/05/2024 Orders Only [facility] - GI [address] [place] [phone] Melecio Graves MD 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 ([facility]) 06/05/2024 Telephone [facility] RAD CSM [address]L [address] [place] [phone] Julian [place], RN Refill Request 06/04/2024 Telephone [facility] - Nephrology [address] [place] [phone] Melecio Graves MD Coordination Of Care 06/02/2024 Orders Only [facility] - GI [address] [place] [phone] Melecio Graves MD 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 ([facility]) 05/30/2024 Transitional Care [facility] CARE COORDINATION [address] [place] [address] Hermelinda Valadez, DIVINE Transitions Of Care 05/30/2024 Transitional Care [facility] CARE COORDINATION [address] [place] [address] Hermelinda Valadez, DIVINE Transitions Of Care 05/20/2024 6:07 PM SOLID PLASTERER Anesthesia Event [facility] LANETTE OP [address] [place] [address] Nickolas Donahue MD Garcia, Alec, MD 05/20/2024 6:03 PM SOLID PLASTERER - 05/20/2024 7:27 PM SOLID PLASTERER Surgery [facility] LANETTE OP [address] [place] [address] Gerardo Álvarez MD IRRIGATION/DEBRIDEMENT LEG/KNEE 05/19/2024 12:15 PM SOLID PLASTERER - 05/28/2024 3:42 PM SOLID PLASTERER Hospital Encounter [facility] 6N ACUTE [address] [place] [address] John Gutiérrez DO Kiwan, Wissam, MD Agbim, Uchenna A, MD SynJackson MD Gastroenterology Discharge Disposition: Home or Self Care 05/19/2024 Travel 05/16/2024 Telephone [facility] - GI [address] [place] [address] Melecio Graves MD Medication Request 05/13/2024 10:45 AM SOLID PLASTERER Office Visit [facility] TXP [facility] CSM 3L [address] [place] [address] Theron Medellin MD Right inguinal hernia (Primary Dx) 05/13/2024 Travel from Last 3 Months Immunizations Name Administration Dates Next Due COVID JOSE CARLOS PRIMARY 18+YR 09/16/2020 FLU VACCINE TRI IIV3 SPLIT I M (FLUVIRIN) 07/13/2015 FLU, HISTORIC VACCINE 03/28/2022 HEP B VACCINE, ADULT 3 DOSE 11/22/2019 INFLUENZA VACCINE 05/31/2021,,04/27/2017,2015,04/02/2015 PNEUMOCOCCAL PCV20 CONJ VAC IM 11/13/2023 PNEUMOCOCCAL PPSV23 11/02/2021 TDAP (7yrs+) 12/24/2017 Zoster Hzv Vacc Recombinant Inj Im 11/13/2023 iNFLUENZA VACCINE, RECOM-VENTURA, QUADR. (FLUBLOCK QUADRIVALENT; 18Y+) (RIV4) 03/28/2022 Family History Medical History Relation Name Comments Cancer - Colon Father Other Mother Carotid aneurys m Relation Name Status Comments Brother 1 Alive Brother 2 Alive Father Mother Social History Tobacco Use Types [...] and heating? Not hard at all 06/12/2024 [facility] - Occupational Stress [...] place to sleep or slept in a custodial (including now)? No 11/01/2023 Housing Stability Vital Sign Answer Armaan e Recorded In the last 12 months, was t here a time when you were not able to pay the mortgage or rent on time? No 06/12/2024 In the past 12 months, how m any times have you moved where you were living? 0 06/12/2024 At any time in the past 12 m [facility], were you homeless or living in a custodial (including now)? No 06/12/2024 Sex and Gender Information Value Date Recorded Sex Assigned at Not on file Gender Identity Not on file Sexual Orientation Not on file Last Filed Vital Signs Vital Sign Reading Time Taken Comments Blood Pressure 129/57 08/05/2024 12:50 PM SOLID PLASTERER Pulse 56 08/05/2024 12:50 PM SOLID PLASTERER Temperature 36.5 C (97.7 F) 08/05/2024 12:50 PM SOLID PLASTERER Respiratory Rate 14 08/05/2024 12:50 PM SOLID PLASTERER Oxygen Saturation 100% 08/05/2024 12:50 PM SOLID PLASTERER Inhaled Oxygen Concentration 30% 10/31/2023 5 :04 PM CDT Weight 77.1 kg (170 lb) 08/05/2024 12:50 PM SOLID PLASTERER Height 177.8 cm (5' 10 ) 08/05/2024 12:50 PM SOLID PLASTERER Body Mass Index 24.39 08/05/2024 12:50 PM SOLID PLASTERER Plan of Treatment Upcoming Encounters Date Type Department Care Team (Late st Contact Info) Description 08/14/2024 10:45 AM SOLID PLASTERER Office Visit [facility] - Orthopedics [address] [place] [address], [place] [address] Yaima Dobbins MD [address] [place] [address] OF ORTHOPEDIC SURGERY [place], [place] [phone] Health Maintenance Due Date Last Done Comments COLOGUARD (AGES 45-75) - COLON CA SCREENING 1965 CT COLONOGRAPHY - COLON CA SCREENING 1965 FIT - COLON CA SCREENING 1965 FLEX SIG - COLON CA SCREENING 1965 MEDICARE AWV 12 MONTHS 1965 HEPATITIS B VACCINE (2 of 5 - Risk Dialysis 4-dose series) 12/20/2019 11/22/2019 ZOSTER VACCINE (2 of 2) 01/08/2024 11/13/2023 COVID-19 VACCINE ( season) 2024 05/02/2022, 06/13/2021, 09/16/2020 INFLUENZA VACCINE (#1) 2024 2, 03/28/2022, 05/31/2021, Additional history exists DEPRESSION SCREENING 07/02/2024 DTAP/TDAP/TD VACCINES (2 - Td or Tdap) 12/25/2027 12/24/2017 LIPID TESTING 12/24/2028 12/25/2023, 01/2023, 10/08/2019 COLON MONITORING 01/11/2030 01/12/2020, 01/12/2020 COLONOSCOPY - COLON CA SCREENING 2031 12/05/2021, 01/12/2020, 01/12/2020 Colorectal Cancer Screening 2031 PNEUMOCOCCAL VACCINE 50+ Completed 11/13/2023, 09/2021 HEPATITIS C SCREENING Completed 05/21/2024 , 12/25/2023, 12/07/2022, Additional history exists HIV SCREENING Completed 05/21/2024, 12/01, 12/07/2022, Additional history exists HIB VACCINE Aged Out No longer eligi ble based on patient's age to complete this topic HPV VACCINE Aged Out No longer eligi ble based on patient's age to complete this topic MENINGOCOCCAL (Group B) VACCINE Aged Out No longer eligible based on patient's age to complete this topic MENINGOCOCCAL VACCINE Aged Out No antoinette mahesh eligible based on patient's age to complete this topic Goals Goal Patient Goal Type Associated Problems [...] last dose Medical Devices Implanted Type Area Cloud Engagement Partner Device Identifier Shelf Expiration Date Model / Serial / Lot Kit Durathane Drflw Embosafe Chrnc Dlys Implanted:Qty: 1 on 03/07/2019 by Trav Merrill MD at [facility] Right: Chest [employer] 03/31/2021 [id number] / [id number] Graft Vasc 6mm 40cm Ptfe Flixene Sldr - [id number] Implanted:Qty: 1 on 02/21/2022 by Kiko ePna MD at [facility] Left: Arterial Maquet 07/20/2023 [id number] / [id number] / Mesh Srg Parietex Progrip 14x9cm Slf Implanted:Qty: 1 on 07/11/2024 by Theron Medellin MD at [facility] Right: Inguinal Covidien [id number] 08/29/2028 [id number] / / [id number] Procedures Procedure Name Priority Date/Time Associated Diagnosis Comments COMPREHENSIVE METABOLIC PANEL STAT 08/05/2024 2:28 PM SOLID PLASTERER GLUCOSE - POINT OF CARE Routine 08/05/2024 2:27 PM SOLID PLASTERER DIFFERENTIAL MANUAL Routine 07/24/2024 7 :38 AM SOLID PLASTERER Pre-liver transplant, listed Pre-kidney transplant, listed Alcoholic cirrhosis of liver with ascites (HCC) ESRD on dialysis (HCC) Stage 5 chronic kidney disease (HCC) MPGN (membranoprolifer ative glomerulonephriti sahil) PT-INR [facility] Routine 07/24/2024 7:38 AM SOLID PLASTERER Pre-liver transplant, listed Pre-kidney transplant, listed Alcoholic cirrhosis of liver with ascites (HCC) ESRD on dialysis (HCC) Stage 5 chronic kidney disease (HCC) MPGN (membranoprolifer ative glomerulonephriti sahil) CBC W AUTO DIFFERENTIAL Routine 07/24/2024 7:38 AM SOLID PLASTERER Pre-liver transplant, listed Pre-kidney transplant, listed Alcoholic cirrhosis of liver with ascites (HCC) ESRD on dialysis (HCC) Stage 5 chronic kidney disease (HCC) MPGN (membranoprolifer ative glomerulonephriti sahil) COMPREHENSIVE METABOLIC PANEL Routine 07/24/2024 7:38 AM SOLID PLASTERER Pre-liver transplant, listed Pre-kidney transplant, listed Alcoholic cirrhosis of liver with ascites (HCC) ESRD on dialysis (HCC) Stage 5 chronic kidney disease (HCC) MPGN (membranoprolifer ative glomerulonephriti sahil) APHERESIS/TRANSFUSION ORDER 07/14/2024 1:38 PM SOLID PLASTERER PREPARE RBC LEUKOREDUCED UNIT Routine 07/12/2024 1:17 AM SOLID PLASTERER ESRD (end stage renal disease) on dialysis (HCC) Hepatic cirrhosis, unspecified hepatic cirrhosis type, unspecified whether ascites present (HCC) PATHOLOGY TISSUE Routine 07/11/2024 8:43 AM SOLID PLASTERER Inguinal hernia without obstruction or gangrene, recurrence not specified, unspecified laterality ENDOTRACHEAL TUBE NOTE Routine 7:55 AM SOLID PLASTERER TRANSFUSE PLATELET PHERESIS UNIT(S) Routine 07/11/2024 7:14 AM SOLID PLASTERER KS RPR 1ST INGUN HRNA AGE 5 YRS/> REDUCIBLE 07/11/2024 7:04 AM SOLID PLASTERER Inguinal hernia without obstruction or gangrene, recurrence not specified, unspecified laterality Case Notes KW 07/10 Special Needs Supine PREPARE PLATELET PHERESIS UNIT(S) Routine 07/11/2024 6:54 AM SOLID PLASTERER ESRD (end stage renal disease) on dialysis (HCC) Hepatic cirrhosis, unspecified hepatic cirrhosis type, unspecified whether ascites present (HCC) TYPE + SCREEN PANEL STAT 07/11/2024 5 :57 AM SOLID PLASTERER Pre-op evaluation POTASSIUM WHOLE BLD STAT 07/11/2024 5 :57 AM SOLID PLASTERER Pre-op evaluation TYPE + SCREEN PANEL STAT 07/08/2024 12:56 PM SOLID PLASTERER Pre-op evaluation PT-INR [facility] Routine 07/08/2024 12:56 PM SOLID PLASTERER Inguinal hernia of right side without obstruction or gangrene Alcoholic cirrhosis of liver without ascites (HCC) Pre-op evaluation CBC W AUTO DIFFERENTIAL Routine 07/08/2024 12:56 PM SOLID PLASTERER Inguinal hernia of right side without obstruction or gangrene Alcoholic cirrhosis of liver without ascites (HCC) Pre-op evaluation COMPREHENSIVE METABOLIC PANEL Routine 07/08/2024 12:56 PM SOLID PLASTERER Inguinal hernia of right side without obstruction or gangrene Alcoholic cirrhosis of liver without ascites (HCC) Pre-op evaluation PT-INR [facility] Routine 06/26/2024 7:12 AM SOLID PLASTERER Pre-liver transplant, listed Pre-kidney transplant, listed Alcoholic cirrhosis of liver with ascites (HCC) ESRD on dialysis (HCC) Stage 5 chronic kidney disease (HCC) MPGN (membranoprolifer ative glomerulonephriti sahil) CBC W AUTO DIFFERENTIAL Routine 06/26/2024 7:12 AM SOLID PLASTERER Pre-liver transplant, listed Pre-kidney transplant, listed Alcoholic cirrhosis of liver with ascites (HCC) ESRD on dialysis (HCC) Stage 5 chronic kidney disease (HCC) MPGN (membranoprolifer ative glomerulonephriti sahil) COMPREHENSIVE METABOLIC PANEL Routine 06/26/2024 7:12 AM SOLID PLASTERER Pre-liver transplant, listed Pre-kidney transplant, listed Alcoholic cirrhosis of liver with ascites (HCC) ESRD on dialysis (HCC) Stage 5 chronic kidney disease (HCC) MPGN (membranoprolifer ative glomerulonephriti sahil) CBC W AUTO DIFFERENTIAL Routine 06/18/2024 8:18 AM SOLID PLASTERER Acute pain of right knee PT-INR [facility] Routine 06/18/2024 8:18 AM SOLID PLASTERER Pre-liver transplant, listed Pre-kidney transplant, listed Alcoholic cirrhosis of liver with ascites (HCC) ESRD on dialysis (HCC) Stage 5 chronic kidney disease (HCC) MPGN (membranoprolifer ative glomerulonephriti sahil) COMPREHENSIVE METABOLIC PANEL Routine 06/18/2024 8:18 AM SOLID PLASTERER Pre-liver transplant, listed Pre-kidney transplant, listed Alcoholic cirrhosis of liver with ascites (HCC) ESRD on dialysis (HCC) Stage 5 chronic kidney disease (HCC) MPGN (membranoprolifer ative glomerulonephriti sahil) PT-INR [facility] AM Draw 06/14/2024 12:37 AM SOLID PLASTERER MAGNESIUM BLOOD AM Draw 06/14/2024 12:37 AM SOLID PLASTERER CBC W/O DIFFERENTIAL AM Draw 06/14/2024 12:37 AM SOLID PLASTERER BASIC METABOLIC PANEL (CALCIUM TOTAL) AM Draw 06/14/2024 12:37 AM SOLID PLASTERER TRANSFUSE RED BLOOD CELL LEUKOREDUCED UNIT(S) Routine 06/13/2024 11:23 AM SOLID PLASTERER PREPARE RBC LEUKOREDUCED UNIT PENDING DISCHARGE 06/13/2024 11:00 AM SOLID PLASTERER VITAMIN B12 Routine 06/13/2024 8:48 AM SOLID PLASTERER FOLATE Routine 06/13/2024 8:48 AM SOLID PLASTERER HEPATIC FUNCTION PANEL Routine 8:48 AM SOLID PLASTERER DIFFERENTIAL MANUAL Routine 06/13/2024 12:56 AM SOLID PLASTERER CBC W AUTO DIFFERENTIAL Routine 06/13/2024 12:56 AM SOLID PLASTERER PT-INR [facility] AM Draw 06/13/2024 12:56 AM SOLID PLASTERER MAGNESIUM BLOOD AM Draw 06/13/2024 12:56 AM SOLID PLASTERER CBC W/O DIFFERENTIAL AM Draw 06/13/2024 12:56 AM SOLID PLASTERER BASIC METABOLIC PANEL (CALCIUM TOTAL) AM Draw 06/13/2024 12:56 AM SOLID PLASTERER HEMODIALYSIS INPATIENT Routine 4 4:05 PM SOLID PLASTERER TYPE + SCREEN PANEL Routine 06/12/2024 1 :23 AM SOLID PLASTERER DIFFERENTIAL MANUAL Add on 06/12/2024 1 :23 AM SOLID PLASTERER IRON + TRANSFERRIN PANEL Routine 06/12/2024 1:23 AM SOLID PLASTERER FERRITIN Routine 06/12/2024 1:23 AM SOLID PLASTERER PTH INTACT W/O CALCIUM AM Draw 1:23 AM SOLID PLASTERER PT-INR [facility] AM Draw 06/12/2024 1:23 AM SOLID PLASTERER MAGNESIUM BLOOD AM Draw 06/12/2024 1:23 AM SOLID PLASTERER CBC W/O DIFFERENTIAL AM Draw 06/12/2024 1:23 AM SOLID PLASTERER BASIC METABOLIC PANEL (CALCIUM TOTAL) AM Draw 06/12/2024 1:23 AM SOLID PLASTERER EKG 12-LEAD STAT 06/11/2024 7:45 PM SOLID PLASTERER Acute pain of right knee ESRD (end stage renal disease) (HCC) Hepatic cirrhosis, unspecified hepatic cirrhosis type, unspecified whether ascites present (HCC) Hyperkalemia COMPREHENSIVE METABOLIC PANEL STAT 06/11/2024 6:[address] KNEE RIGHT WO CONTRAST STAT 06/11/2024 5:55 PM SOLID PLASTERER Acute pain of right knee XR KNEE RIGHT 3VW STAT 06/11/2024 3:4 1 PM SOLID PLASTERER Acute pain of right knee C-REACTIVE PROTEIN JOSUÉ 06/11/2024 8: 18 AM SOLID PLASTERER ERYTHROCYTE SEDIMENTATION RATE STAT 06/11/2024 8:18 AM SOLID PLASTERER PHOSPHORUS BLOOD STAT 06/11/2024 8:18 AM SOLID PLASTERER MAGNESIUM BLOOD STAT 06/11/2024 8:18 AM SOLID PLASTERER COMPREHENSIVE METABOLIC PANEL STAT 06/11/2024 8:18 AM SOLID PLASTERER CBC W AUTO DIFFERENTIAL STAT 06/11/2024 8:18 AM SOLID PLASTERER COMPREHENSIVE METABOLIC PANEL Routine 05/28/2024 6:51 AM SOLID PLASTERER ESRD (end stage renal disease) on dialysis (HCC) Alcoholic cirrhosis of liver without ascites (HCC) PT-INR [facility] Routine 05/28/2024 6:51 AM SOLID PLASTERER ESRD (end stage renal disease) on dialysis (HCC) Alcoholic cirrhosis of liver without ascites (HCC) BILIRUBIN DIRECT Routine 05/28/2024 6:51 AM SOLID PLASTERER ESRD (end stage renal disease) on dialysis (HCC) Alcoholic cirrhosis of liver without ascites (HCC) CBC W/O DIFFERENTIAL Routine 05/28/2024 6:51 AM SOLID PLASTERER ESRD (end stage renal disease) on dialysis (HCC) Alcoholic cirrhosis of liver without ascites (HCC) MAGNESIUM BLOOD Routine 05/28/2024 6:51 AM SOLID PLASTERER ESRD (end stage renal disease) on dialysis (HCC) Alcoholic cirrhosis of liver without ascites (HCC) PHOSPHORUS BLOOD Routine 05/28/2024 6:51 AM SOLID PLASTERER ESRD (end stage renal disease) on dialysis (HCC) Alcoholic cirrhosis of liver without ascites (HCC) COMPREHENSIVE METABOLIC PANEL Routine 05/27/2024 3:07 AM SOLID PLASTERER ESRD (end stage renal disease) on dialysis (HCC) Alcoholic cirrhosis of liver without ascites (HCC) PT-INR [facility] Routine 05/27/2024 3:07 AM SOLID PLASTERER ESRD (end stage renal disease) on dialysis (HCC) Alcoholic cirrhosis of liver without ascites (HCC) BILIRUBIN DIRECT Routine 05/27/2024 3:07 AM SOLID PLASTERER ESRD (end stage renal disease) on dialysis (HCC) Alcoholic cirrhosis of liver without ascites (HCC) CBC W/O DIFFERENTIAL Routine 05/27/2024 3:07 AM SOLID PLASTERER ESRD (end stage renal disease) on dialysis (HCC) Alcoholic cirrhosis of liver without ascites (HCC) MAGNESIUM BLOOD Routine 05/27/2024 3:07 AM SOLID PLASTERER ESRD (end stage renal disease) on dialysis (HCC) Alcoholic cirrhosis of liver without ascites (HCC) PHOSPHORUS BLOOD Routine 05/27/2024 3:07 AM SOLID PLASTERER ESRD (end stage renal disease) on dialysis (HCC) Alcoholic cirrhosis of liver without ascites (HCC) COMPREHENSIVE METABOLIC PANEL Routine 05/26/2024 4:20 AM SOLID PLASTERER ESRD (end stage renal disease) on dialysis (HCC) Alcoholic cirrhosis of liver without ascites (HCC) PT-INR [facility] Routine 05/26/2024 4:20 AM SOLID PLASTERER ESRD (end stage renal disease) on dialysis (HCC) Alcoholic cirrhosis of liver without ascites (HCC) BILIRUBIN DIRECT Routine 05/26/2024 4:20 AM SOLID PLASTERER ESRD (end stage renal disease) on dialysis (HCC) Alcoholic cirrhosis of liver without ascites (HCC) CBC W/O DIFFERENTIAL Routine 05/26/2024 4:20 AM SOLID PLASTERER ESRD (end stage renal disease) on dialysis (HCC) Alcoholic cirrhosis of liver without ascites (HCC) MAGNESIUM BLOOD Routine 05/26/2024 4:20 AM SOLID PLASTERER ESRD (end stage renal disease) on dialysis (HCC) Alcoholic cirrhosis of liver without ascites (HCC) PHOSPHORUS BLOOD Routine 05/26/2024 4:20 AM SOLID PLASTERER ESRD (end stage renal disease) on dialysis (HCC) Alcoholic cirrhosis of liver without ascites (HCC) COMPREHENSIVE METABOLIC PANEL Routine 05/25/2024 3:51 AM SOLID PLASTERER ESRD (end stage renal disease) on dialysis (HCC) Alcoholic cirrhosis of liver without ascites (HCC) PT-INR [facility]H Routine 05/25/2024 3:51 AM SOLID PLASTERER ESRD (end stage renal disease) on dialysis (HCC) Alcoholic cirrhosis of liver without ascites (HCC) BILIRUBIN DIRECT Routine 05/25/2024 3:51 AM SOLID PLASTERER ESRD (end stage renal disease) on dialysis (HCC) Alcoholic cirrhosis of liver without ascites (HCC) CBC W/O DIFFERENTIAL Routine 05/25/2024 3:51 AM SOLID PLASTERER ESRD (end stage renal disease) on dialysis (HCC) Alcoholic cirrhosis of liver without ascites (HCC) MAGNESIUM BLOOD Routine 05/25/2024 3:51 AM SOLID PLASTERER ESRD (end stage renal disease) on dialysis (HCC) Alcoholic cirrhosis of liver without ascites (HCC) PHOSPHORUS BLOOD Routine 05/25/2024 3:51 AM SOLID PLASTERER ESRD (end stage renal disease) on dialysis (HCC) Alcoholic cirrhosis of liver without ascites (HCC) HEMODIALYSIS INPATIENT Routine 12:00 AM SOLID PLASTERER XR PANOREX Routine 05/24/2024 2:12 PM SOLID PLASTERER 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) COMPREHENSIVE METABOLIC PANEL Routine 05/24/2024 3:08 AM SOLID PLASTERER ESRD (end stage renal disease) on dialysis (HCC) Alcoholic cirrhosis of liver without ascites (HCC) PT-INR SLH Routine 05/24/2024 3:08 AM SOLID PLASTERER ESRD (end stage renal disease) on dialysis (HCC) Alcoholic cirrhosis of liver without ascites (HCC) BILIRUBIN DIRECT Routine 05/24/2024 3:08 AM SOLID PLASTERER ESRD (end stage renal disease) on dialysis (HCC) Alcoholic cirrhosis of liver without ascites (HCC) CBC W/O DIFFERENTIAL Routine 05/24/2024 3:08 AM SOLID PLASTERER ESRD (end stage renal disease) on dialysis (HCC) Alcoholic cirrhosis of liver without ascites (HCC) MAGNESIUM BLOOD Routine 05/24/2024 3:08 AM SOLID PLASTERER ESRD (end stage renal disease) on dialysis (HCC) Alcoholic cirrhosis of liver without ascites (HCC) PHOSPHORUS BLOOD Routine 05/24/2024 3:08 AM SOLID PLASTERER ESRD (end stage renal disease) on dialysis (HCC) Alcoholic cirrhosis of liver without ascites (HCC) PTH INTACT W/O CALCIUM Routine 8:46 AM SOLID PLASTERER FERRITIN Routine 05/23/2024 8:46 AM SOLID PLASTERER VITAMIN D 25-HYDROXY Routine 05/23/2024 3:23 AM SOLID PLASTERER IRON + TRANSFERRIN PANEL Routine 05/23/2024 3:23 AM SOLID PLASTERER VANCOMYCIN LEVEL RANDOM Routine 05/23/2024 3:23 AM SOLID PLASTERER COMPREHENSIVE METABOLIC PANEL Routine 05/23/2024 3:23 AM SOLID PLASTERER ESRD (end stage renal disease) on dialysis (HCC) Alcoholic cirrhosis of liver without ascites (HCC) PT-INR SLH Routine 05/23/2024 3:23 AM SOLID PLASTERER ESRD (end stage renal disease) on dialysis (HCC) Alcoholic cirrhosis of liver without ascites (HCC) BILIRUBIN DIRECT Routine 05/23/2024 3:23 AM SOLID PLASTERER ESRD (end stage renal disease) on dialysis (HCC) Alcoholic cirrhosis of liver without ascites (HCC) CBC W/O DIFFERENTIAL Routine 05/23/2024 3:23 AM SOLID PLASTERER ESRD (end stage renal disease) on dialysis (HCC) Alcoholic cirrhosis of liver without ascites (HCC) MAGNESIUM BLOOD Routine 05/23/2024 3:23 AM SOLID PLASTERER ESRD (end stage renal disease) on dialysis (HCC) Alcoholic cirrhosis of liver without ascites (HCC) PHOSPHORUS BLOOD Routine 05/23/2024 3:23 AM SOLID PLASTERER ESRD (end stage renal disease) on dialysis (HCC) Alcoholic cirrhosis of liver without ascites (HCC) GLUCOSE - POINT OF CARE Routine 05/22/2024 4:19 PM SOLID PLASTERER HEMODIALYSIS INPATIENT Routine 3:49 PM SOLID PLASTERER CHLAMYDIA + GC AMPLIFIED PROBE Routine 05/22/2024 1:26 PM SOLID PLASTERER GLUCOSE - POINT OF CARE Routine 05/22/2024 12:44 PM SOLID PLASTERER CULTURE BLOOD Timed 05/22/2024 9:38 AM SOLID PLASTERER CULTURE BLOOD Timed 05/22/2024 9:25 AM SOLID PLASTERER GLUCOSE - POINT OF CARE Routine 05/22/2024 8:09 AM SOLID PLASTERER VANCOMYCIN LEVEL RANDOM Routine 05/22/2024 2:55 AM SOLID PLASTERER COMPREHENSIVE METABOLIC PANEL Routine 05/22/2024 2:55 AM SOLID PLASTERER ESRD (end stage renal disease) on dialysis (HCC) Alcoholic cirrhosis of liver without ascites (HCC) PT-INR SLH Routine 05/22/2024 2:55 AM SOLID PLASTERER ESRD (end stage renal disease) on dialysis (HCC) Alcoholic cirrhosis of liver without ascites (HCC) BILIRUBIN DIRECT Routine 05/22/2024 2:55 AM SOLID PLASTERER ESRD (end stage renal disease) on dialysis (HCC) Alcoholic cirrhosis of liver without ascites (HCC) CBC W/O DIFFERENTIAL Routine 05/22/2024 2:55 AM SOLID PLASTERER ESRD (end stage renal disease) on dialysis (HCC) Alcoholic cirrhosis of liver without ascites (HCC) MAGNESIUM BLOOD Routine 05/22/2024 2:55 AM SOLID PLASTERER ESRD (end stage renal disease) on dialysis (HCC) Alcoholic cirrhosis of liver without ascites (HCC) PHOSPHORUS BLOOD Routine 05/22/2024 2:55 AM SOLID PLASTERER ESRD (end stage renal disease) on dialysis (HCC) Alcoholic cirrhosis of liver without ascites (HCC) GLUCOSE - POINT OF CARE Routine 05/21/2024 4:15 PM SOLID PLASTERER GLUCOSE - POINT OF CARE Routine 05/21/2024 12:32 PM SOLID PLASTERER HEMODIALYSIS INPATIENT Routine 11:06 AM SOLID PLASTERER SYPHILIS ANTIBODY CASCADING REFLEX Routine 05/21/2024 2:29 AM SOLID PLASTERER HEPATITIS C AB SCREEN RFLX NAAT QUANT Routine 05/21/2024 2:29 AM SOLID PLASTERER HIV-1 HIV-2 ANTIBODY + HIV P24 AG PANEL STAT 05/21/2024 2:29 AM SOLID PLASTERER VANCOMYCIN LEVEL RANDOM Routine 05/21/2024 2:29 AM SOLID PLASTERER Pain and swelling of right knee COMPREHENSIVE METABOLIC PANEL Routine 05/21/2024 2:29 AM SOLID PLASTERER ESRD (end stage renal disease) on dialysis (HCC) Alcoholic cirrhosis of liver without ascites (HCC) PT-INR SLH Routine 05/21/2024 2:29 AM SOLID PLASTERER ESRD (end stage renal disease) on dialysis (HCC) Alcoholic cirrhosis of liver without ascites (HCC) BILIRUBIN DIRECT Routine 05/21/2024 2:29 AM SOLID PLASTERER ESRD (end stage renal disease) on dialysis (HCC) Alcoholic cirrhosis of liver without ascites (HCC) CBC W/O DIFFERENTIAL Routine 05/21/2024 2:29 AM SOLID PLASTERER ESRD (end stage renal disease) on dialysis (HCC) Alcoholic cirrhosis of liver without ascites (HCC) MAGNESIUM BLOOD Routine 05/21/2024 2:29 AM SOLID PLASTERER ESRD (end stage renal disease) on dialysis (HCC) Alcoholic cirrhosis of liver without ascites (HCC) PHOSPHORUS BLOOD Routine 05/21/2024 2:29 AM SOLID PLASTERER ESRD (end stage renal disease) on dialysis (HCC) Alcoholic cirrhosis of liver without ascites (HCC) PATHOLOGY SMEAR BODY FLUID Routine 05/20/2024 6:41 PM SOLID PLASTERER CRYSTAL INDENTIFICATION SYNOVIAL FLUID Routine 05/20/2024 6:41 PM SOLID PLASTERER CULTURE WOUND+GRAM STAIN STAT 05/20/2024 6:41 PM SOLID PLASTERER CULTURE ANAEROBE Routine 05/20/2024 6:41 PM SOLID PLASTERER ENDOTRACHEAL TUBE NOTE Routine 6:24 PM SOLID PLASTERER KS PANKAJ SUBQ TISSUE 20 SQ CM/< 05/20/2024 6:03 PM SOLID PLASTERER Infection Special Needs 05/20 @ 0611 CW COMPREHENSIVE METABOLIC PANEL STAT 05/20/2024 3:32 AM SOLID PLASTERER ESRD (end stage renal disease) on dialysis (HCC) Alcoholic cirrhosis of liver without ascites (HCC) PT-INR SLH STAT 05/20/2024 3:32 AM SOLID PLASTERER ESRD (end stage renal disease) on dialysis (HCC) Alcoholic cirrhosis of liver without ascites (HCC) BILIRUBIN DIRECT STAT 05/20/2024 3:32 AM SOLID PLASTERER ESRD (end stage renal disease) on dialysis (HCC) Alcoholic cirrhosis of liver without ascites (HCC) CBC W/O DIFFERENTIAL STAT 05/20/2024 3:32 AM SOLID PLASTERER ESRD (end stage renal disease) on dialysis (HCC) Alcoholic cirrhosis of liver without ascites (HCC) MAGNESIUM BLOOD STAT 05/20/2024 3:32 AM SOLID PLASTERER ESRD (end stage renal disease) on dialysis (HCC) Alcoholic cirrhosis of liver without ascites (HCC) PHOSPHORUS BLOOD STAT 05/20/2024 3:32 AM SOLID PLASTERER ESRD (end stage renal disease) on dialysis (HCC) Alcoholic cirrhosis of liver without ascites (HCC) TRANSFUSE PLATELET PHERESIS UNIT(S) Routine 05/20/2024 2:20 AM SOLID PLASTERER PREPARE PLATELET PHERESIS UNIT(S) STAT 05/20/2024 1:49 AM SOLID PLASTERER URIC ACID BLOOD STAT 05/19/2024 11:55 PM SOLID PLASTERER Pain and swelling of right knee CBC W/O DIFFERENTIAL STAT 05/19/2024 11:55 PM SOLID PLASTERER Pain and swelling of right knee Thrombocytopenia (HCC) HEMODIALYSIS INPATIENT Routine 8:51 PM SOLID PLASTERER CULTURE ANAEROBE STAT 05/19/2024 7:43 PM SOLID PLASTERER Pain and swelling of right knee PATHOLOGY SMEAR BODY FLUID STAT 05/19/2024 7:42 PM SOLID PLASTERER Pain and swelling of right knee DIFFERENTIAL MANUAL FLUID STAT 05/19/2024 7:42 PM SOLID PLASTERER Pain and swelling of right knee CELL COUNT W DIFFERENTIAL FLUID STAT 05/19/2024 7:42 PM SOLID PLASTERER Pain and swelling of right knee CULTURE FUNGUS OTHER+FUNGUS SMEAR STAT 05/19/2024 7:42 PM SOLID PLASTERER Pain and swelling of right knee CULTURE FLUID+GRAM STAIN STAT 05/19/2024 7:42 PM SOLID PLASTERER Pain and swelling of right knee ERYTHROCYTE SEDIMENTATION RATE STAT 05/19/2024 4:30 PM SOLID PLASTERER Pain and swelling of right knee C-REACTIVE PROTEIN JOSUÉ 05/19/2024 4: 30 PM SOLID PLASTERER Pain and swelling of right knee CBC W/O DIFFERENTIAL STAT 05/19/2024 4:30 PM SOLID PLASTERER Thrombocytopenia (HCC) TRANSFUSE PLATELET PHERESIS UNIT(S) Routine 05/19/2024 3:45 PM SOLID PLASTERER PREPARE PLATELET PHERESIS UNIT(S) STAT 05/19/2024 3:28 PM SOLID PLASTERER TYPE + SCREEN PANEL STAT 05/19/2024 2 :23 PM SOLID PLASTERER PT-INR SLH STAT 05/19/2024 2:23 PM SOLID PLASTERER OBTAIN CONSENT FOR TRANSFUSION Routine 05/19/2024 1:58 PM SOLID PLASTERER XR KNEE RIGHT 3VW STAT 05/19/2024 11:59 AM SOLID PLASTERER Pain and swelling of right knee MAGNESIUM BLOOD STAT 05/19/2024 11:46 AM SOLID PLASTERER COMPREHENSIVE METABOLIC PANEL STAT 05/19/2024 11:46 AM SOLID PLASTERER CBC W AUTO DIFFERENTIAL STAT 05/19/2024 11:46 AM SOLID PLASTERER LIPID PROFILE Routine 12/25/2023 8:13 AM CDT [...] (ABNORMAL) COMPREHENSIVE METABOLIC PANEL (08/05/2024 2:28 PM SOLID PLASTERER) Only the most recent of17 resultswithin the time period is included. BUN 33(H) 7 - 26 mg/dL 08/05/2024 3:15 PM [facility] Creatinine 5.66(H) 0.71 - 1.16 mg/dL 08/05/2024 3:15 PM [facility] Sodium 138 136 - 145 mmol/L 08/05/2024 3:15 PM [facility] Potassium See Comment 3.5 - 4.5 mmol/L 08/05/2024 3:15 PM [facility] Comment:Significant hemolysi s detected in this specimen. Recommend repeat testing if clinically indicated. Chloride 101 98 - 107 mmol/L 08/05/2024 3:15 PM [facility] CO2 25 22 - 29 mmol/L 08/05/2024 3:15 PM [facility] Glucose 93 70 - 99 mg/dL 08/05/2024 3:15 PM [facility] Calcium 9.0 8.4 - 10.2 mg/dL 08/05/2024 3:15 PM [facility] Protein Total See Comment 6.0 - 8.3 g/dL 08/05/2024 3:15 PM [facility] Comment:Significant hemolysi s detected in this specimen. Hemolysis leads to artifactual elevations of this analyte. The result has been suppressed. Please reorder test and submit a new specimen if clinically indicated. Page Smoking Pipe Driller And Threader of Clinical Chemistry ([phone]) if you suspect in vivo hemolysis. Albumin 3.3(L) 3.4 - 5.0 g/dL 08/05/2024 3:15 PM [facility] Bilirubin Total 1.3(H) 0.2 - 1.2 mg/dL 08/05/2024 3:15 PM [facility] Alkaline Phosphatase 149 40 - 150 U/L 08/05/2024 3:15 PM [facility] ALT 14 5 - 55 U/L 08/05/2024 3:15 PM [facility] AST See Comment 5 - 34 Units/L 08/05/2024 3:15 PM [facility] Comment: Significant hemolysis detected in this specimen. Hemolysis leads to artifactual elevations of this analyte. The result has been suppressed. Please reorder test and submit a new specimen if clinically indicated. Page Smoking Pipe Driller And Threader of Clinical Chemistry ([phone]) if you suspect in vivo hemolysis. BUN/Creatinine Ratio 6(L) 7 - 23 08/05/2024 3:15 PM [facility] Osmolality Calculated 293 275 - 295 mOsm/kg 08/05/2024 3:15 PM [facility] Albumin/Globuli n Ratio 0.8(L) 1.1 - 2.3 08/05/2024 3:15 PM [facility] eGFR by CKD-EPI 11(L) >=90 mL/min/1. 73 m2 08/05/2024 3:15 PM [facility] Blood BLOOD SPECIMEN / Unknown Venipuncture / Unknown 08/05/2024 2:28 PM SOLID PLASTERER 08/05/2024 2:43 PM SOLID PLASTERER Amina Carrera EXTERMINATOR-MANAGER ASSET LAB - CHEMIS TRY ORDERABLES [facility] [address] [place] [phone], [facility] [phone] * GLUCOSE - POINT OF CARE (08/05/2024 2:27 PM SOLID PLASTERER) Only the most recent of6 resultswithin the time period is included. Glucose WB/POC 99 70 - 99 mg/dL 08/05/2024 9:01 PM [facility] Specimen Type Venous 08/05/2024 9:01 PM [facility] Blood BLOOD SPECIMEN / Unknown 08/05/2024 2:27 PM SOLID PLASTERER 08/05/2024 9:01 PM SOLID PLASTERER Provider Unknown LAB - POINT OF CARE ORDERABLES Performing Organization Address [facility] Co de Phone Number [address] [address], [facility] [phone] * (ABNORMAL) PT-INR [facility] (07/24/2024 7:38 AM SOLID PLASTERER) Only the most recent of17 resultswithin the time period is included. PT 17.6(H) 12.1 - 14.8 Seconds 07/24/2024 8:36 AM [facility] INR 1.5 See Comment 07/24/2024 8:36 AM [facility] Comment:The suggested therap eutic range for standard coumadin (warfarin) therapy is an INR of 2.0-3.0. For high-risk patients (Mechanical Mitral Valve Prosthesis, etc.), the suggested prophylactic therapeutic range is an INR of 2.5-3.5. Blood BLOOD SPECIMEN / Unknown Lab Venipuncture / Unknown 07/24/2024 7:38 AM SOLID PLASTERER 07/24/2024 8:11 AM SOLID PLASTERER Melecio Graves MD LAB - COAGULATION OR DERABLES Performing Organization Address City/[facility]/ZIP Co de Phone Number [address] [address], [facility] [phone] * (ABNORMAL) DIFFERENTIAL MANUAL (07/24/2024 7:38 AM SOLID PLASTERER) Only the most recent of3 resultswithin the time period is included. Neutrophil % 73 41 - 74 % 07/24/2024 10:44 AM [facility] Lymphocyte % 15(L) 17 - 47 % 07/24/2024 10:44 AM [facility] Monocyte % 7 3 - 11 % 07/24/2024 10:44 AM [facility] Eosinophil % 4 0 - 7 % 07/24/2024 10:44 AM [facility] Basophil % 1 0 - 2 % 07/24/2024 10:44 AM [facility] Neutrophil Absolute 2.34 1.60 - 7.50 x10E9/L 07/24/2024 10:44 AM [facility] Lymphocyte Absolute 0.48(L) 1.00 - 4.40 x10E9/L 07/24/2024 10:44 AM [facility] Monocyte Absolute 0.22 0.15 - 1.00 x10E9/L 07/24/2024 10:44 AM [facility] Eosinophil Absolute 0.13 0.00 - 0.60 x10E9/L 07/24/2024 10:44 AM [facility] Basophil Absolute 0.03 0.00 - 0.13 x10E9/L 07/24/2024 10:44 AM [facility] RBC Morphology REVIEWED 07/24/2024 10:44 AM [facility] Blood BLOOD SPECIMEN / Unknown Lab Venipuncture / Unknown 07/24/2024 7:38 AM SOLID PLASTERER 07/24/2024 8:13 AM [facility] Melecio Graves MD LAB - HEMATOLOGY ORD ERABLES [facility] [address] [place] [phone], [facility] [phone] * (ABNORMAL) CBC W/ DIFFERENTIAL (07/24/2024 7:38 AM [facility]) Only the most recent of7 resultswithin the time period is included. WBC 3.2(L) 4.0 - 10.7 x10E9/L 07/24/2024 10:44 AM [facility] RBC Count 2.83(L) 4.30 - 5.80 x10E12/L 07/24/2024 10:44 AM [facility] Hemoglobin 9.3(L) 13.3 - 17.5 g/dL 07/24/2024 10:44 AM [facility] Hematocrit 27.9(L) 38.7 - 51.1 % 07/24/2024 10:44 AM [facility] MCV 98.6(H) 80.0 - 98.0 fL 07/24/2024 10:44 AM [facility] MCH 32.9 26.7 - 33.6 pg 07/24/2024 10:44 AM [facility] MCHC 33.3 31.7 - 36.3 g/dL 07/24/2024 10:44 AM [facility] RDW-CV 16.8(H) 11.3 - 14.8 % 07/24/2024 10:44 AM [facility] Platelet Count 48(L) 150 - 420 x10E9/L 07/24/2024 10:44 AM [facility] MPV 10.3 7.8 - 11.4 fL 07/24/2024 10:44 AM [facility] Blood BLOOD SPECIMEN / Unknown Lab Venipuncture / Unknown 07/24/2024 7:38 AM [facility] 07/24/2024 8:13 AM [facility] - 07/24/2024 10:44 AM SOLID PLASTERER A previously reported component NEUT % is [...] Graves MD LAB - HEMATOLOGY ORD ERABLES [facility] [address] [place] [address], [facility] [phone] * APHERESIS/TRANSFUSION ORDER (07/14/2024 1:38 PM SOLID PLASTERER) Narrative 07/14/2024 1:38 PM SOLID PLASTERER Ordered by an unspecified provider. Scanned Document NURSING - VITAL SIGN S AND ASSESSMENT * PREPARE (CROSSMATCH) RBC UNIT(S), 1 Units (07/12/2024 1:17 AM SOLID PLASTERER) Only the most recent of2 resultswithin the time period is included. Unit Description AS1 LR PRBC [facility] BLOOD BANK LAB Unit ABO O [facility] BLOOD BANK LAB Unit Rh NEG [facility] BLOOD BANK LAB Product Number R02 [facility] B LOOD BANK LAB Unit Donor # [id number] [facility] BLOOD BANK LAB Unit Status released [facility] BLOO D BANK LAB Product Code [id number] [facility] BLO OD BANK LAB Blood Type Barcode 9500 [facility] BLOOD BANK LAB Expiration Date [id number] S BLOOD BANK LAB Blood Bank BLOOD SPECIMEN / Unknown 07/11/2024 6:01 AM SOLID PLASTERER Pawan Lynn DO LAB - BLOOD BANK ORDERABLES [facility] BLOOD BANK LAB [address] [place] [address], [facility] [phone] * TRANSFUSE PLATELET PHERESIS UNIT(S) (07/11/2024 9:19 AM SOLID PLASTERER) Pawan Lynn DO NURSING - BLOOD P BETTIE TRANSFUSION * PATHOLOGY TISSUE (07/11/2024 8:43 AM SOLID PLASTERER) Case Report Surgical Pathology Report Case: [id number] Authorizing Provider: Theron Medellin MD Collected: 07/11/2024 08:43 AM Ordering Location: [facility] OP Received: 07/11/2024 10:55 AM Pathologist: Bonnie Rene MD Specimen: Hernia Sac, RIGHT INGUINAL HERNIA SAC 07/14/2024 1:00 PM [facility] Final Diagnosis Soft tissue, right inguinal hernia sac, excision (A): - Fibrosis, reactive changes, and extensive hemosiderin deposition 07/14/2024 1:00 PM [facility] Microscopic Description and Comment Microscopic examination substantiates the final diagnosis. 07/14/2024 1:00 PM [facility] Clinical History The patient is a 58-year-old man with right inguinal hernia. Operative procedure: Repair 07/14/2024 1:00 PM [facility] Gross Description The requisition and [...] layer. There are no additional gross lesions. Warp Dyeing Vat Tender sections are submitted in cassette A1. IKD 07/14/2024 1:00 PM [facility] Pathologist Location at [facility] 07/14/2024 1:00 PM [facility] Disclaimer The performance characteristics of all immunohistochemical and indirect immunofluorescence stains (if any) cited in this report were determined by the Histopathology Laboratory of [facility]. Some of these tests were developed by [...] the attending (teaching) pathologist. 07/14/2024 1:00 PM [facility] Embedded Images 07/14/2024 1:00 PM [facility] Biopsy, Excision HERNIA SAC / Unknown 07/11/2024 8:43 AM SOLID PLASTERER 07/11/2024 10:55 AM SOLID PLASTERER Comment:Pre-op diagnosis: symptomatic right inguinal hernia Theron Medellin MD LAB - PATHOLOGY/CYTO LOGY ORDERABLES [facility] [address] [place] [address], [facility] [phone] * ETT LINE PERFORMABLE (07/11/2024 7:55 AM SOLID PLASTERER) Narrative Kayla Joyce Anes Asst - 07/11/2024 7:55 AM SOLID PLASTERER Kayla Joyce Anes Asst 07/11/2024 7:55 AM Endotracheal Tube Placement: Patient Location: OR. Intubation Event Date/Time: 07/11/2024 7:40 AM Procedure: intubation ([id number]) Procedure Section: Sedation: under general anesthesia. Indications [...] PHERESIS UNIT(S), 1 Units (07/11/2024 6:54 AM SOLID PLASTERER) Only the most recent of3 resultswithin the time period is included. Unit Description LR PLT Phere B7 [facility] BLOOD BANK LAB Unit ABO O [facility] BLOOD BANK LAB Unit Rh POS [facility] BLOOD BANK LAB Product Number P27 [facility] B LOOD BANK LAB Unit Donor # [id number] [facility] BLOOD BANK LAB Unit Status transfused [facility] BLO OD BANK LAB Product Code [id number] [facility] BLO OD BANK LAB Blood Type Barcode 5100 [facility] BLOOD BANK LAB Expiration Date [id number] S BLOOD BANK LAB Blood Bank BLOOD SPECIMEN / Unknown 07/11/2024 6:01 AM SOLID PLASTERER Pawan Lynn DO LAB - BLOOD BANK ORDERABLES [facility] BLOOD BANK LAB [address] [place] [address], [facility] [phone] * TYPE + SCREEN PANEL (07/11/2024 5:57 AM SOLID PLASTERER) Only the most recent of4 resultswithin the time period is included. Pathologist [facility] Antibody Screen NEG 6:49 AM [facility] BLOOD BANK LAB ABO Rh O NEG 07/11/2024 6:49 AM [facility] BLOOD BANK LAB Blood Bank BLOOD SPECIMEN / Unknown Line Draw / Unknown 07/11/2024 5:57 AM SOLID PLASTERER 07/11/2024 6:01 AM SOLID PLASTERER Zoe Arevalo APRNGamelet LAB - BLOOD B ANK ORDERABLES [facility] BLOOD BANK LAB [address] [place] [phone], [facility] [phone] * POTASSIUM WHOLE BLD (07/11/2024 5:57 AM SOLID PLASTERER) [facility] Potassium Whole Blood 4.2 3.5 - 5.5 mmol/L 07/11/2024 6:14 AM [facility] Blood WHOLE BLOOD SPECIMEN / Unknown Line Draw / Unknown 07/11/2024 5:57 AM SOLID PLASTERER 07/11/2024 6:04 AM SOLID PLASTERER Zoe Arevalo APRNScreenHitsMANAGER ASSET LAB - INTERVENTIONAL RADIOLOGY TECHNOLOGIST RY ORDERABLES [facility] [address] [place] [id number], [facility] [phone] * (ABNORMAL) CBC W/O DIFFERENTIAL (06/14/2024 12:37 AM SOLID PLASTERER) Only the most recent of14 resultswithin the time period is included. Pathologist [facility] WBC 1.5(L) 4.0 - 10.7 x10E9/L 06/14/2024 1:57 AM [facility] RBC Count 2.29(L) 4.30 - 5.80 x10E12/L 06/14/2024 1:57 AM [facility] Hemoglobin 7.3(L) 13.3 - 17.5 g/dL 06/14/2024 1:57 AM [facility] Hematocrit 21.4(L) 38.7 - 51.1 % 06/14/2024 1:57 AM [facility] MCV 93.4 80.0 - 98.0 fL 06/14/2024 1:57 AM [facility] MCH 31.9 26.7 - 33.6 pg 06/14/2024 1:57 AM [facility] MCHC 34.1 31.7 - 36.3 g/dL 06/14/2024 1:57 AM [facility] RDW-CV 17.8(H) 11.3 - 14.8 % 06/14/2024 1:57 AM [facility] Platelet Count 33(L) 150 - 420 x10E9/L 06/14/2024 1:57 AM [facility] MPV 10.7 7.8 - 11.4 fL 06/14/2024 1:57 AM [facility] Blood BLOOD SPECIMEN / Unknown Lab Venipuncture / Unknown 06/14/2024 12:37 AM SOLID PLASTERER 06/14/2024 1:18 AM SOLID PLASTERER Melecio Graves MD LAB - HEMATOLOGY ORD ERABLES [address] [address] [address], [facility] [phone] * (ABNORMAL) BASIC METABOLIC PANEL (CALCIUM TOTAL) (06/14/2024 12:37 AM SOLID PLASTERER) Only the most recent of3 resultswithin the time period is included. BUN 21 7 - 26 mg/dL 06/14/2024 2:18 AM [facility] Creatinine 5.45(H) 0.71 - 1.16 mg/dL 06/14/2024 2:18 AM [facility] Sodium 139 136 - 145 mmol/L 06/14/2024 2:18 AM [facility] Potassium 4.3 3.5 - 4.5 mmol/L 06/14/2024 2:18 AM [facility] Chloride 99 98 - 107 mmol/L 06/14/2024 2:18 AM [facility] CO2 30(H) 22 - 29 mmol/L 06/14/2024 2:18 AM [facility] Glucose 84 70 - 99 mg/dL 06/14/2024 2:18 AM [facility] Calcium 8.1(L) 8.4 - 10.2 mg/dL 06/14/2024 2:18 AM [facility] Anion Gap 10 6 - 16 06/14/2024 2:18 AM [facility] BUN/Creatinine Ratio 4(L) 7 - 23 06/14/2024 2:18 AM [facility] Osmolality Calculated 290 275 - 295 mOsm/kg 06/14/2024 2:18 AM [facility] eGFR by CKD-EPI 11(L) >=90 mL/min/1.7 3 m2 06/14/2024 2:18 AM [facility] Blood BLOOD SPECIMEN / Unknown Lab Venipuncture / Unknown 06/14/2024 12:37 AM SOLID PLASTERER 06/14/2024 1:19 AM SOLID PLASTERER Melecio Graves MD LAB - CHEMISTRY ORDGerhard CHAVES [facility] [address] [place] [address], [facility] [phone] * MAGNESIUM BLOOD (06/14/2024 12:37 AM SOLID PLASTERER) Only the most recent of14 resultswithin the time period is included. Magnesium 1.8 1.6 - 2.6 mg/dL 06/14/2024 1:49 AM [facility] Blood BLOOD SPECIMEN / Unknown Lab Venipuncture / Unknown 06/14/2024 12:37 AM SOLID PLASTERER 06/14/2024 1:19 AM SOLID PLASTERER Melecio Graves MD LAB - CHEMISTRY FREDO CHAVES [facility] [address] [place] [address], [facility] [phone] * TRANSFUSE RED BLOOD CELL LEUKOREDUCED UNIT(S) (06/13/2024 5:43 PM SOLID PLASTERER) Melecio Graves MD NURSING - BLOOD PROD TRANSFUSION * (ABNORMAL) HEPATIC FUNCTION PANEL (06/13/2024 8:48 AM SOLID PLASTERER) Protein Total 5.7(L) 6.0 - 8.3 g/dL 9:48 AM [facility] Albumin 2.3(L) 3.4 - 5.0 g/dL 06/13/2024 9:48 AM [facility] Bilirubin Total 1.5(H) 0.2 - 1.2 mg/dL 06/01 9:48 AM [facility] Bilirubin Conjugated 0.9(H) 0.1 - 0.5 mg/dL 06/13/2024 9:48 AM [facility] Bilirubin Unconjugated 0.6 Unconjugated Bilirubin is a calculated value: Reference ranges have not been established. mg/dL 06/13/2024 9:48 AM [facility] Alkaline Phosphatase 77 40 - 150 U/L 06/13/2024 9:48 AM [facility] ALT 7 5 - 55 U/L 06/13/2024 9:48 AM [facility] AST 27 5 - 34 U/L 06/13/2024 9:48 AM [facility] Albumin/Globulin Ratio 0.7(L) 1.1 - 2.3 06/13/2024 9:48 AM [facility] Blood BLOOD SPECIMEN / Unknown Lab Venipuncture / Unknown 06/13/2024 8:48 AM SOLID PLASTERER 06/13/2024 9:18 AM SOLID PLASTERER Melecio Graves MD LAB - CHEMISTRY FREDO CHAVES [facility] Organization Address City/State/ZIP Co de Phone Number [address] [address], [facility] [phone] * FOLATE (06/13/2024 8:48 AM SOLID PLASTERER) Pathologist [facility] Folate 8.5 7.0 - 31.4 ng/mL 06/13/2024 10:20 AM [facility] Blood BLOOD SPECIMEN / Unknown Lab Venipuncture / Unknown 06/13/2024 8:48 AM SOLID PLASTERER 06/13/2024 9:18 AM SOLID PLASTERER Melecio Graves MD LAB - CHEMISTRY FREDO CHAVES Performing Organization Address City/[facility]/ZIP Co de Phone Number [address] [address], [place] [phone] * (ABNORMAL) VITAMIN B12 (06/13/2024 8:48 AM SOLID PLASTERER) Pathologist [facility] Vitamin B12 1,274(H) 213 - 816 pg/mL 06/13/2024 10:20 AM SOLID PLASTERER [facility] Blood BLOOD SPECIMEN / Unknown Lab Venipuncture / Unknown 06/13/2024 8:48 AM SOLID PLASTERER 06/13/2024 9:18 AM SOLID PLASTERER Melecio Graves MD LAB - CHEMISTRY FREDO CHAVES Performing Organization Address [facility] Co de Phone Number [address] [address], [place] [phone] * (ABNORMAL) PTH INTACT W/O CALCIUM (06/12/2024 1:23 AM SOLID PLASTERER) Only the most recent of2 resultswithin the time period is included. Pathologist [facility] PTH Intact 407.3(H) 8.0 - 77.0 pg/mL 06/12/2024 2:23 AM SOLID PLASTERER [facility] Blood BLOOD SPECIMEN / Unknown Lab Venipuncture / Unknown 06/12/2024 1:23 AM SOLID PLASTERER 06/12/2024 1:42 AM SOLID PLASTERER Melecio Graves MD LAB - CHEMISTRY FREDO CHAVES Performing Organization Address [facility]/ZIP Co de Phone Number [address] [address], [place] [phone] * (ABNORMAL) IRON + TRANSFERRIN PANEL (06/12/2024 1:23 AM SOLID PLASTERER) Only the most recent of2 resultswithin the time period is included. Pathologist [facility] Iron 48(L) 50 - 175 ug/dL 06/12/2024 2:20 AM [facility] Transferrin 79(L) 174 - 382 mg/dL 06/12/2024 2:20 AM [facility] Transferrin Saturation % 49 16 - 50 % 06/12/2024 2:20 AM [facility] TIBC Calculated 99(L) 240 - 450 ug/dL 06/12/2024 2:20 AM [facility] Blood BLOOD SPECIMEN / Unknown Lab Venipuncture / Unknown 06/12/2024 1:23 AM SOLID PLASTERER 06/12/2024 1:42 AM SOLID PLASTERER Melecio Graves MD LAB - CHEMISTRY FREDO CHAVES Performing Organization Address City/[facility]/ZIP Co de Phone Number [facility] [address] [place] [address], [facility] [phone] * (ABNORMAL) FERRITIN (06/12/2024 1:23 AM SOLID PLASTERER) Only the most recent of2 resultswithin the time period is included. Ferritin 938(H) 22 - 275 ng/mL 06/12/2024 2:37 AM [facility] Blood BLOOD SPECIMEN / Unknown Lab Venipuncture / Unknown 06/12/2024 1:23 AM SOLID PLASTERER 06/12/2024 1:42 AM SOLID PLASTERER Melecio Graves MD LAB - CHEMISTRY FREDO CHAVES Performing Organization Address City/[facility]/ZIP Co de Phone Number [facility] [address] [place] [address], [place] [phone] * EKG 12-LEAD (06/11/2024 7:45 PM SOLID PLASTERER) Ventricular Rate 59 BPM [facility] MUSE Atrial Rate 59 BPM [facility] MUSE P-R Interval 242 ms [facility] MUSE QRS Duration ms 102 ms [facility] MUSE Q-T Interval ms 492 ms [facility] MUSE QTC Calculation (Bezet) 487 ms [facility] MUSE Calculated P Wilton 72 degrees [facility] MUSE Calculated R [place] 62 degrees [facility] MUSE Calculated T [place] 74 degrees [facility] MUSE Interpretation EKG SINUS BRADYCARDIA WITH 1ST DEGREE A-V BLOCK T WAVE ABNORMALITY, CONSIDER ANTERIOR ISCHEMIA ABNORMAL ECG Confirmed by LEILANI ROJAS MD ([id number]) on 06/13/2024 1:39:21 PM [facility] MUSE 06/11/2024 7:4 5 PM SOLID PLASTERER 06/13/2024 1:39 PM SOLID PLASTERER Melecio Graves MD ECG ORDERABLES [facility] MUSE * CT Knee Right Wo Contrast (06/11/2024 5:55 PM SOLID PLASTERER) Anatomical Region Laterality Modality Lower Extremity Computed Tomogra phy 06/11/2024 6:16 PM SOLID PLASTERER Impressions 06/12/2024 12:48 AM SOLID PLASTERER IMPRESSION: 1.There is an osteochondral defect of [...] arthritis. > Dictated by Sandro Bro DO (president & founder). I, Chad Renner MD have personally reviewed and interpreted this examination/study. > Interpreting Provider: Chad Renner MD on 06/12/2024 12:48 AM Narrative 06/12/2024 12:48 AM SOLID PLASTERER PROCEDURE: CT KNEE RIGHT WO CONTRAST DATE/TIME [...] arthritis. > Dictated by Sandro Bro DO (president & founder). I, Chad Renner MD have personally reviewed and interpreted this examination/study. > Interpreting Provider: Chad Renner MD on 06/12/2024 12:48 AM Minerva Ventura MD CT ORDERABLES * XR Knee Right 3Vw (06/11/2024 3:41 PM SOLID PLASTERER) Only the most recent of2 resultswithin the time period is included. Anatomical Region Laterality Modality Lower Extremity Digital Radiogra phy 06/11/2024 3:37 PM SOLID PLASTERER Impressions 06/11/2024 3:56 PM SOLID PLASTERER IMPRESSION: Increase in size of moderate suprapatellar joint effusion. No acute fracture or dislocation. No radiographic evidence of osteomyelitis. Soft tissue swelling. Report dictated by Zahida Catalan MD, (president & founder). Elzbieta Silva MD have personally reviewed and interpreted this examination/study. > Interpreting Provider: Elzbieta Woodard MD on 06/11/2024 3:56 PM Narrative 06/11/2024 3:56 PM SOLID PLASTERER PROCEDURE: XR KNEE RIGHT 3VW DATE/TIME OF [...] swelling. Report dictated by Zahida Catalan MD, (president & founder). Elzbieta Silva MD have personally reviewed and interpreted this examination/study. > Interpreting Provider: Elzbieta Woodard MD on 06/11/2024 3:56 PM Hany Whyte MD DIAGNOSTIC IMAGING O RDERABLES * (ABNORMAL) C-REACTIVE PROTEIN (06/11/2024 8:18 AM SOLID PLASTERER) Only the most recent of2 resultswithin the time period is included. C-Reactive Protein 4.6(H) <=0.5 mg/dL 06/11/2024 8:57 AM SOLID PLASTERER [facility] Blood BLOOD SPECIMEN / Unknown Venipuncture / Unknown 06/11/2024 8:18 AM SOLID PLASTERER 06/11/2024 8:25 AM SOLID PLASTERER Chivo Agudelo MD LAB - CHEMISTRY ORDGerhard CHAVES Performing Organization Address City/[facility]/ZIP Co de Phone Number [address] [address], [facility] [phone] * (ABNORMAL) ERYTHROCYTE SEDIMENTATION RATE (06/11/2024 8:18 AM SOLID PLASTERER) Only the most recent of2 resultswithin the time period is included. Erythrocyte Sedimentation Rate Westergren 31(H) 0 - 20 MM/HR 06/11/2024 10:12 AM SOLID PLASTERER [facility] Blood BLOOD SPECIMEN / Unknown Venipuncture / Unknown 06/11/2024 8:18 AM SOLID PLASTERER 06/11/2024 8:25 AM SOLID PLASTERER Chivo Agudelo MD LAB - HEMATOLOGY ORD CHARLES Performing Organization Address City/[facility]/ZIP Co de Phone Number [address] [address], [facility] [phone] * PHOSPHORUS BLOOD (06/11/2024 8:18 AM SOLID PLASTERER) Only the most recent of10 resultswithin the time period is included. Phosphorus 3.7 2.8 - 5.1 mg/dL 06/11/2024 8:57 AM SOLID PLASTERER [facility] Blood BLOOD SPECIMEN / Unknown Venipuncture / Unknown 06/11/2024 8:18 AM SOLID PLASTERER 06/11/2024 8:25 AM SOLID PLASTERER Chivo Agudelo MD LAB - CHEMISTRY ORDGerhard CHAVES [facility] [address] [place] [address], [facility] [phone] * (ABNORMAL) BILIRUBIN DIRECT (05/28/2024 6:51 AM SOLID PLASTERER) Only the most recent of9 resultswithin the time period is included. Bilirubin Conjugated 0.7(H) 0.1 - 0.5 mg/dL 05/28/2024 7:44 AM SOLID PLASTERER [facility] Blood BLOOD SPECIMEN / Unknown Lab Venipuncture / Unknown 05/28/2024 6:51 AM SOLID PLASTERER 05/28/2024 7:09 AM SOLID PLASTERER Sanjuana Salazar MD LAB - CHEMISTRY FREDO ANASTACIO [address] [address], [facility] [phone] * XR Panorex (05/24/2024 2:12 PM SOLID PLASTERER) Anatomical Region Laterality Modality Head Radiographic Cindy ging 05/25/2024 8:00 AM SOLID PLASTERER Impressions 05/25/2024 11:44 PM SOLID PLASTERER IMPRESSION: Motion artifact degrades image quality, within exam limitations. Consider performing this study again. Nonspecific radiolucency of the right paramedian mandible. Otherwise no evidence of periapical abscess. Report dictated by Judy Muller Dr, MD (president & founder). I, Sonja Sanders MD have personally reviewed and interpreted this examination/study. > Interpreting Provider: Sonja Sanders MD on 05/25/2024 11:44 PM Narrative 05/25/2024 11:44 PM SOLID PLASTERER PROCEDURE: XR PANOREX, DATE/TIME OF EXAM: 05/24/2024 2:13 PM, LOCATION [facility] INDICATION: M00.861: Arthritis of right knee due [...] DATE/TIME OF EXAM: 05/24/2024 2:13 PM, LOCATION [facility] INDICATION: M00.861: Arthritis of right knee due [...] Report dictated by Judy Muller Dr, MD (president & founder). I, Sonja Sanders MD have personally reviewed and interpreted this examination/study. > Interpreting Provider: Sonja Sanders MD on 05/25/2024 11:44 PM Uli Murphy MD DIAGNOSTIC IMAGING O RDERABLES * (ABNORMAL) VITAMIN D 25-HYDROXY (05/23/2024 3:23 AM SOLID PLASTERER) Vitamin D, 25 Hydroxy 16.4(L) 30.0 - 80.0 ng/mL 05/23/2024 8:10 AM SOLID PLASTERER [facility] Comment: The recommendations for 25-Hydroxy Vitamin [...] Lab Venipuncture / Unknown 05/23/2024 3:23 AM SOLID PLASTERER 05/23/2024 4:04 AM SOLID PLASTERER Uli Murphy MD LAB - CHEMISTRY FREDO CHAVES Performing Organization Address City/[facility]/ZIP Co de Phone Number [address] [address], [facility] [phone] * VANCOMYCIN LEVEL RANDOM (05/23/2024 3:23 AM SOLID PLASTERER) Only the most recent of3 resultswithin the time period is included. [facility] Vancomycin Random 19.8 Therapeutic Ranges not established for random specimens ug/mL 05/23/2024 4:24 AM SOLID PLASTERER [facility] Blood BLOOD SPECIMEN / Unknown Lab Venipuncture / Unknown 05/23/2024 3:23 AM SOLID PLASTERER 05/23/2024 3:59 AM SOLID PLASTERER Narrative [facility] - 05/23/2024 4:24 AM SOLID PLASTERER See institution protocol. Uli Murphy MD LAB - CHEMISTRY FREDO CHAVES Performing Organization Address [facility] Co de Phone Number [address] [address], [facility] [phone] * CHLAMYDIA + GC AMPLIFIED PROBE (05/22/2024 1:26 PM SOLID PLASTERER) [facility] Chlamydia Amplified Probe Negative Negative 05/22/2024 8:38 PM SOLID PLASTERER [facility] GC Amplified Probe Negative Negative 05/22/2024 8:[address] [facility] Microbiology ENTIRE PHARYNX / Unknown Collection / Unknown 05/22/2024 1:26 PM SOLID PLASTERER 05/22/2024 1:31 PM [address] N[address]ative [facility] - 05/22/2024 8:38 PM SOLID PLASTERER Results based on detection/no detection of ribosomal RNA by amplified method. Uli Murphy MD LAB - MICROBIOLOGY O RDERABLES Performing Organization Address City/[facility]/ZIP Co de Phone Number [facility] [address] [place] [address], [facility] [phone] * CULTURE BLOOD (05/22/2024 9:38 AM SOLID PLASTERER) Only the most recent of2 resultswithin the time period is included. Pathologist [facility] Culture No growth day 5 LEANNE 05/27/2024 2:[address] [facility] Blood PERIPHERAL BLOOD / Unknown Lab Venipuncture / Unknown 05/22/2024 9:38 AM SOLID PLASTERER 05/22/2024 10:03 AM SOLID PLASTERER Uli Murphy MD LAB - MICROBIOLOGY O RDERABLES Performing Organization Address City/[facility]/ZIP Co de Phone Number [facility] [address] [place] [address], [facility] [phone] * HEPATITIS C AB SCREEN RFLX NAAT QUANT (05/21/2024 2:29 AM SOLID PLASTERER) Pathologist [facility] Hepatitis C Antibody Non-react jaden Non-reac tive 05/22/2024 8:44 AM SOLID PLASTERER [facility] Comment:Hepatitis C Antibody screen indicates [...] Lab Venipuncture / Unknown 05/21/2024 2:29 AM SOLID PLASTERER 05/21/2024 3:08 AM SOLID PLASTERER Uli Murphy MD LAB - CHEMISTRY ORDE RABRADHA Performing Organization Address City/[facility] Co de Phone Number [facility] [address] [place] [address], [facility] [phone] * SYPHILIS ANTIBODY CASCADING REFLEX (05/21/2024 2:29 AM SOLID PLASTERER) Treponema pallidum Antibody Non-react jaden Non-react jaden 05/22/2024 8:44 AM SOLID PLASTERER [facility] Comment: No Laboratory evidence of syphilis infection. Note: Circulating antibodies may be low or undetectable in early infection. If recent exposure is suspected, re-draw sample in 2-4 weeks and repeat testing. Blood BLOOD SPECIMEN / Unknown Lab Venipuncture / Unknown 05/21/2024 2:29 AM SOLID PLASTERER 05/21/2024 3:08 AM SOLID PLASTERER Uli Murphy MD LAB - SEROLOGY ORDER MALIHA Performing Organization Address City/[facility]/ZIP Co de Phone Number [address] [address], [place] [phone] * HIV-1 HIV-2 ANTIBODY + HIV P24 AG PANEL (05/21/2024 2:29 AM SOLID PLASTERER) Pathologist [facility] HIV Antigen/Antibod y 1 & 2 Non-reacti ve Non-react jaden 05/22/2024 8:44 AM SOLID PLASTERER [facility] Comment:No Laboratory eviden ce of HIV infection. Blood BLOOD SPECIMEN / Unknown Lab Venipuncture / Unknown 05/21/2024 2:29 AM SOLID PLASTERER 05/21/2024 3:08 AM SOLID PLASTERER Uli Murphy MD LAB - CHEMISTRY ORDE RABLES Performing Organization Address [facility] Co de Phone Number [address] [address], [place] [phone] * CRYSTAL INDENTIFICATION SYNOVIAL FLUID (05/20/2024 6:41 PM SOLID PLASTERER) Pathologist [facility] Crystal Exam Fluid To be performed by Pathology. See Path Review. 05/21/2024 8:16 AM SOLID PLASTERER [facility] Fluid SYNOVIAL FLUID / Unknown Collection / Unknown 05/20/2024 6:41 PM SOLID PLASTERER 05/21/2024 8:13 AM SOLID PLASTERER Gerardo Álvarez MD LAB - BODY FLUID ORD ERABLES Performing Organization Address [facility]/ZIP Co de Phone Number [address] [address], [place] [phone] * PATHOLOGY SMEAR BODY FLUID (05/20/2024 6:41 PM SOLID PLASTERER) Only the most recent of2 resultswithin the time period is included. Path Review Fluid Confirmed 05/22/2024 4:04 PM SOLID PLASTERER [facility] Fluid SYNOVIAL FLUID / Unknown Collection / Unknown 05/20/2024 6:41 PM SOLID PLASTERER 05/21/2024 8:13 AM SOLID PLASTERER Narrative [facility] - 05/22/2024 4:04 PM SOLID PLASTERER No intracellular crystals seen. Gerardo Álvarez MD LAB - PATHOLOGY/CYTO LOGY ORDERABLES [facility] [address] [place] [address], [facility] [phone] * CULTURE WOUND+GRAM STAIN (05/20/2024 6:41 PM SOLID PLASTERER) Culture No growth LEANNE 05/23/2024 5:56 AM SOLID PLASTERER [facility] Gram Stain Moderate Polymorphonuclear cells 05/23/2024 5:56 AM SOLID PLASTERER [facility] Gram Stain Moderate Red blood cells 05/23/2024 5:56 AM SOLID PLASTERER [facility] Gram Stain No organisms seen 024 5:56 AM SOLID PLASTERER [facility] Microbiology ENTIRE KNEE REGION / Unknown Collection / Unknown 05/20/2024 6:41 PM SOLID PLASTERER 05/20/2024 6:49 PM SOLID PLASTERER Gerardo Álvarez MD LAB - MICROBIOLOGY O MEREDITH Performing Organization Address [facility] Co de Phone Number [facility] [address] [place] [address], [facility] [phone] * (ABNORMAL) CULTURE ANAEROBE (05/20/2024 6:41 PM SOLID PLASTERER) Only the most recent of2 resultswithin the time period is included. Culture Light Gemella species(A) LEANNE 05/25/2024 12:32 PM SOLID PLASTERER [facility] Microbiology ENTIRE KNEE REGION / Unknown Collection / Unknown 05/20/2024 6:41 PM SOLID PLASTERER 05/20/2024 6:50 PM SOLID PLASTERER Gerardo Álvarez MD LAB - MICROBIOLOGY O MEREDITH Performing Organization Address City/[facility]/ZIP Co de Phone Number [facility] [address] [place] [address], [facility] [phone] * ETT LINE PERFORMABLE (05/20/2024 6:24 PM SOLID PLASTERER) Narrative Kiko Garner Anes Asst - 05/20/2024 6:24 PM SOLID PLASTERER Kiko Garner Anes Asst 05/20/2024 6:27 PM Endotracheal Tube Placement: Patient Location: OR. Intubation Event Date/Time: 05/20/2024 6:10 PM Procedure: intubation ([id number]) Procedure Section: Sedation: under general anesthesia. Indications [...] Anes Asst, Performed the procedure. Provider #2: Satellite Specialist, Student Anesthesiology Satellite Specialist Student Anesthesiology, Performed the procedure. Additional Comments: Atraumatic supervised intubation performed by Ramandeep Lawton, Student Anesthesiologist Satellite Specialist.. Nickolas Donahue MD GENERAL ANESTHESIA O RDERABLES * TRANSFUSE PLATELET PHERESIS UNIT(S) (05/20/2024 3:17 AM SOLID PLASTERER) Sanjuana Salazar MD NURSING - BLOOD PROD TRANSFUSION * (ABNORMAL) URIC ACID BLOOD (05/19/2024 11:55 PM SOLID PLASTERER) Uric Acid 7.6(H) 3.5 - 7.2 mg/dL 05/20/2024 12:23 AM SOLID PLASTERER [facility] Blood BLOOD SPECIMEN / Unknown Venipuncture / Unknown 05/19/2024 11:55 PM SOLID PLASTERER 05/19/2024 11:58 PM SOLID PLASTERER Sanjuana Salazar MD LAB - CHEMISTRY FREDO CHAVES Performing Organization Address City/[facility]/ZIP Co de Phone Number [facility] [address] [place] [address], [facility] [phone] * CULTURE FUNGUS OTHER+FUNGUS SMEAR (05/19/2024 7:42 PM SOLID PLASTERER) Culture No fungus isolated LEANNE 06/14/2024 2:[address] [facility] Fungus Stain No yeast or hyphae seen 06/14/2024 2:[address] [facility] Microbiology SYNOVIAL FLUID / Unknown Collection / Unknown 05/19/2024 7:42 PM SOLID PLASTERER 05/19/2024 7:42 PM SOLID PLASTERER Sanjuana Salazar MD LAB - MICROBIOLOGY O RDERABLES Performing Organization Address [facility]/ZIP Co de Phone Number [facility] [address] [place] [address], [facility] [phone] * DIFFERENTIAL MANUAL FLUID (05/19/2024 7:42 PM SOLID PLASTERER) Fluid Source Synovial 05/19/2024 9:14 PM SOLID PLASTERER [facility] Body Fluid Total Cell Count 100 x10E6/L 05/19/2024 9:14 PM SOLID PLASTERER [facility] Neutrophils Fluid Percent 97 % 05/19/2024 9:14 PM [facility] Lymphocytes Fluid Percent 2 % 05/19/2024 9:14 PM SOLID PLASTERER [facility] Macrophages Fluid Percent 1 % 05/19/2024 9:14 PM SOLID PLASTERER [facility] Fluid SYNOVIAL FLUID / Unknown Collection / Unknown 05/19/2024 7:42 PM SOLID PLASTERER 05/19/2024 7:42 PM SOLID PLASTERER Narrative [facility] - 05/19/2024 9:14 PM SOLID PLASTERER No reference ranges established for body fluid differential cell counts. The test results must be integrated into the clinical context for interpretation. Sanjuana Salazar MD LAB - BODY FLUID ORD ERABLES Performing Organization Address [facility]/ZIP Co de Phone Number [facility] [address] [place] [address], [place] [phone] * CULTURE FLUID+GRAM STAIN (05/19/2024 7:42 PM SOLID PLASTERER) Culture No growth LEANNE 05/23/2024 5:[address] [facility]CRO[facility] Gram Stain Light Polymorphonuclear cells 05/23/2024 5:[address] [facility]CROBI[facility] Gram Stain No organisms seen 024 5:56 AM [facility] Other SYNOVIAL FLUID / Unknown Collection / Unknown 05/19/2024 7:42 PM SOLID PLASTERER 05/19/2024 7:42 PM SOLID PLASTERER Sanjuana Salazar MD LAB - MICROBIOLOGY O RDERABLES Performing Organization Address City/[facility]/ZIP Co de Phone Number [facility] MICROBIOLOGY [address] [place] [address], [facility] [phone] * (ABNORMAL) CELL COUNT W DIFFERENTIAL FLUID (05/19/2024 7:42 PM SOLID PLASTERER) Fluid Source Synovial 05/19/2024 9:14 PM SOLID PLASTERER [facility] Fluid Appearance TURBID 05/19/2024 9:14 PM [facility] Fluid Color ORANGE 05/19/2024 9:14 PM [facility] Total Nucleated Cells Fluid 56,010(H) <=200 x10E6/L 05/19/2024 9:14 PM [facility] RBC Count Fluid 40,000 Reference Range Not Established x10E6/L 05/19/2024 9:14 PM [facility] Fluid SYNOVIAL FLUID / Unknown Collection / Unknown 05/19/2024 7:42 PM SOLID PLASTERER 05/19/2024 7:42 PM SOLID PLASTERER Narrative [facility] - 05/19/2024 9:14 PM SOLID PLASTERER No reference ranges established for body fluid cell counts. Any reference ranges provided are derived from published literature. The test results must be integrated into the clinical context for interpretation. Sanjuana Salazar MD LAB - BODY FLUID ORD ERABLES [facility] [address] [place] [address], [place] [phone] * TRANSFUSE PLATELET PHERESIS UNIT(S) (05/19/2024 5:26 PM SOLID PLASTERER) John Gutiérrez DO NURSING - BLOOD PROD TRANSFUSION * (ABNORMAL) LIPID PROFILE (12/25/2023 8:13 AM CDT) Cholesterol Total 104 <200 mg/dL 12/25/2023 9:18 AM CDT [facility] HDL 37(L) >40 mg/dL 12/25/2023 9:18 AM CDT [facility] Comment: ATP III Classification of HDL Cholesterol: <40 mg/dL: Considered a major risk factor. >60 mg/dL: Considered a negative risk factor. LDL Calculated 56 <100 mg/dL 12/25/2023 9:18 AM T [facility] Comment: ATP III Classification of LDL Cholesterol: <100 mg/dL: Optimal 100 - 129 mg/dL: Near Optimal/Above Optimal 130 - 159 mg/dL: Borderline High 160 - 189 mg/dL: High >190 mg/dL: Very High Triglycerides 57 <150 mg/dL 12/25/2023 9:18 AM T [facility] Comment: ATP III Classification of Triglycerides: <150 mg/dL: Normal 150 - 199 mg/dL: Borderline High 200 - 400 mg/dL: High >500 mg/dL: Very High Blood BLOOD SPECIMEN / Unknown Lab Venipuncture / Unknown 12/25/2023 8:13 AM CDT 12/25/2023 8:37 AM CDT Eugenie Dsouza EXTERMINATOR-MANAGER ASSET LAB - CHEMI STRY ORDERABLES Performing Organization Address City/State/[facility] Co de Phone Number [facility] [address] [place] [phone], [facility] [phone] * ENDOSCOPY, COLON, DIAGNOSTIC (01/12/2020 3:38 PM [...] entire procedure. 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 All rights reserved. The codes documented in this report are preliminary and upon harbor patrol police review may be revised to meet current compliance requirements. 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
--- OUTSIDE RECORDS SUMMARY | 2024-08-12 09:11 | XMS_ITS ---
Author Organization [facility] Address [address] [place] [address] Care Team Providers Care Plug Making Operator Name Role Phone Efren Ramirez DO Primary Care Provider Transplant Episode Kidney, Liver Candidate [facility] ([place], [place]) - [facility] Center waitlisted on 02/11/2024 Marked as Active on 06/12/2024 Kidney, Liver CoordinatorLinh Forde RN Phone: N/A Fax: N/A Email: N/A Scores Score Value Updated Expires Exceptions/Wilmer sons CPRA Not available EPTS (Calc) 47 08/12/2024 UNOS MELD 23 07/24/2024 08/23/2024 MELD (Calc) 23 07/24/2024 [place] 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 Care Team Name Role Phone Fax Email Linh Forde RN Kidney, Liver Coordinator N/A N/A N/A Melecio Graves MD Transplant Agronomy Research Manager N/A N/A N/A Ariana Flood Business Analytics Intern N/A N/A N/A Events Pre-Transplant Referred: 10/08/2023 Evaluation began: 10/10/2023 Committee: 01/29/2024 UNOS qualified: 03/14/2019 Center waitlisted: 02/11/2024 Dialysis History Dialysis History Start End Type Comments Center 03/14/2019 In-center Hemodialysis [facility] Dialysis Center Information Center Phone Fax Address [facility] [phone] [address] [facility] [place] [address]
--- OUTSIDE RECORDS SUMMARY | 2024-08-12 09:11 | XMS_ITS | Encounter Summary ---
Author Organization [facility] Address [address] [place] [address] Care Team Providers Care Emulsion Coater Name Role Phone Dm Pena MD Primary Care Provider Efren Ramirez DO Primary Care Provider Encounter Details Date Type Department Care Team (Late st Contact Info) Description 01/26/2019 Procedure visit [facility] [address] [place] [address] Levi Candelario, DO [address] [facility] [address] [place] [address] Anesthesia Record Procedure Summary Procedure Name Responsible Anesthesiologist Anesthesia Start Time Anesthesia Stop Time ANESTHESIA PROCEDURE Events No events on file. Meds * Agents No agents on file. * Blood No blood administrations on file. Lines, Drains, and Airways No LDAs on file. documented in this encounter Social History Tobacco Use Types Packs/Day Years Used Date Smoking Tobacco: Never Smokeless Tobacco: Former Alcohol Use Standard Drinks/Week Comments Yes 0 (1 standard drink = 0.6 oz pure alcohol) drinks 2-3 days week-wine or vodka Sex and Gender Information Value Date Recorded Sex Assigned at Not on file Gender Identity Not on file Sexual Orientation Not on file documented as of this encounter Functional Status Functional Status Response Date of Assess ment Is person deaf or have serious hearing difficult y? No 01/24/2019 Is person blind or have serious difficulty seein g? No 01/24/2019 Does person have serious dif ficulty walking/climbing stairs? No 01/24/2019 Does person have difficulty dressing/bathing? No 01/24/2019 Does person have difficulty doing errands alone? No 01/24/2019 Cognitive Status Response Date of Assessm ent Does person have difficulty concentrating/remembering/making decisions? No 01/24/2019 documented as of this encounter Plan of Treatment Upcoming Encounters Date Type Department Care Team (Late st Contact Info) Description 08/14/2024 10:45 AM ENVIRONMENTAL SYSTEMS COORDINATOR Office Visit [facility] [address] [place] [address], [facility] [place] [address] Yaima Dobbins MD [address] [place] [address] [place] [address] documented as of this encounter Visit Diagnoses Not on filedocumented in this encounter Additional Health Concerns Infection Onset Date Last Indicated Resolved Time COVID-19 Under Investigation 09/20/2020 09/20/2020 09/20/2020 10:10 PM CDT COVID-19 Under Investigation 07/19/2021 07/19/2021 07/19/2021 1:09 PM ENVIRONMENTAL SYSTEMS COORDINATOR COVID-19 Confirmed 07/19/2021 07/19/2021 4:33 AM ENVIRONMENTAL SYSTEMS COORDINATOR COVID-19 Under Investigation 10/29/2023 10/29/2023 10/29/2023 9:28 AM CDT documented as of this encounter Care Teams Emulsion Coater Relationship Specialty Start Date End Date Dm Pena MD [address] [phone] PCP - General Family Medicine 02/06/19 06/11/24 Efren Ramirez DO [address] [place] [address] PCP - General Internal Medicine 06/12/24 documented as of this encounter
--- OUTSIDE RECORDS SUMMARY | 2024-08-12 09:11 | XMS_ITS | Patient Health Summary ---
Author Organization [facility] [employer] Address [address] [place] [address] Care Team Providers Care Adobe Layer Name Role Phone Efren Ramirez DO Primary Care Provider Note from [facility] [place]non-owned Affiliates and Associated Physician Practices is amultiple site organization consisting of ambulatory clinics and hospital sitesin [place], [place], [place] and [place]. This disclosure is being madepursuant to the Care Everywhere program and may not contain all information available regarding this patient. Last updated 18.[facility] Allergies No known active allergies Medications * Be aware that medications may not be up to date on this document. Alwaysverify current medications with the patient. * melatonin 3 MG tablet Take 5 mg by mouth nightly as needed for Insomnia (takes 10 mg prn) * pantoprazole EC (PROTONIX) 40 MG tablet(Started 01/30/2019) Take 1 tablet by mouth once daily 3 refills remaining * nadolol (CORGARD) 20 MG tablet(Started 09/10/2020) Take 1 (one) tablet by mouth once daily 3 refills by 09/10/2021 * lactulose (Chronulac) 10 GM/15ML solution(Started 11/13/2023) Take 30 mL by mouth 3 times daily 1 refill by 11/12/2024 * levETIRAcetam (Keppra) 750 MG tablet(Started 03/10/2024) TAKE 1 TABLET BY MOUTH TWICE DAILY 3 refills by 03/10/2025 * renal vitamin (Dialyvite) tablet(Started 05/29/2024) Take 1 (one) tablet by mouth once daily * sevelamer carbonate (Renvela) 800 MG(Started 05/28/2024) Take 2 (two) tablets by mouth 3 times daily with meals for 90 days 2 refills by 05/28/2025 * acetaminophen (Tylenol) 500 MG tablet(Started 06/13/2024) Take 1 (one) tablet by mouth every 6 hours Maximum allowable Acetaminophen amount = 2 Grams (2000 mg) / 24 hours. * hydrALAZINE (Apresoline) 25 MG tablet Take 1 (one) tablet by mouth once daily * amLODIPine (Norvasc) 2.5 MG tablet Take 1 (one) tablet by mouth once daily * furosemide (Lasix) 80 MG tablet(Started 05/30/2024) Take 1 (one) tablet by mouth 2 times daily * oxyCODONE, immediate release, (Roxicodone) 5 MG tablet(Started 07/11/2024) Take 1 (one) tablet by mouth every 6 hours as needed for Pain Active Problems Problem Noted Date Diagnosed Date [...] Pre-transplant evaluation for liver transplant 0 10/02/2019 Hyperglycemia 09/11/2019 Atrial flutter 09/09/2019 Peritonitis 04/18/2019 [...] (end stage renal disease) 06/11/2024 06/11/2024 Immunizations * COVID JOSE CARLOS PRIMARY 18+YR(Given 09/16/2020) * FLU VACCINE TRI IIV3 SPLIT IM (FLUVIRIN)(Given 07/13/2015) * FLU, HISTORIC VACCINE(Given 03/28/2022) * HEP B VACCINE, ADULT 3 DOSE(Given 11/22/2019) * INFLUENZA VACCINE(Given 05/31/2021, 04/06/2020, 04/27/2017, 07/13/2015, 04/02/2015) * PNEUMOCOCCAL PCV20 CONJ VAC IM(Given 11/13/2023) * PNEUMOCOCCAL PPSV23(Given 11/02/2021) * TDAP (7yrs+)(Given 12/24/2017) * Zoster Hzv Vacc Recombinant Inj Im(Given 11/13/2023) * iNFLUENZA VACCINE, RECOM-VENTURA, QUADR. (FLUBLOCK QUADRIVALENT; 18Y+) (RIV4)(Given 03/28/2022) Social History Tobacco Use Types Packs/Day Years [...] and heating? Not hard at all 06/12/2024 [facility] - Occupational Stress [...] place to sleep or slept in a assisted (including now)? No 11/01/2023 Housing Stability Vital Sign Answer Armaan e Recorded In the last 12 months, was t here a time when you were not able to pay the mortgage or rent on time? No 06/12/2024 In the past 12 months, how m any times have you moved where you were living? 0 06/12/2024 At any time in the past 12 m [facility], were you homeless or living in a assisted (including now)? No 06/12/2024 Sex and Gender Information Value Date Recorded Sex Assigned at Not on file Gender Identity Not on file Sexual Orientation Not on file Last Filed Vital Signs Vital Sign Reading Time Taken Comments Blood Pressure 129/57 08/05/2024 12:50 PM [facility] Pulse 56 08/05/2024 12:50 PM [facility] Temperature 36.5 C (97.7 F) 08/05/2024 12:50 PM [facility] Respiratory Rate 14 08/05/2024 12:50 PM [facility] Oxygen Saturation 100% 08/05/2024 12:50 PM [facility] Inhaled Oxygen Concentration 30% 10/31/2023 5 :04 PM CDT Weight 77.1 kg (170 lb) 08/05/2024 12:50 PM [facility] Height 177.8 cm (5' 10 ) 08/05/2024 12:50 PM [facility] Body Mass Index 24.39 08/05/2024 12:50 PM [facility] Medical Devices Implanted Type Area Production Statistical Clerk Device Identifier Shelf Expiration Date Model / Serial / Lot Kit Durathane Drflw Embosafe Chrnc Dlys Implanted:Qty: 1 on 03/07/2019 by Trav Pandey MD at [facility] Right: Chest [employer] 03/31/2021 [id number] / / [id number] Graft Vasc 6mm 40cm Ptfe Flixene Sldr - [id number] Implanted:Qty: 1 on 02/21/2022 by Kiko Pena MD at [facility] Left: Arterial Maquet 07/20/2023 [id number] / [id number] / Mesh Srg Parietex Progrip 14x9cm Slf Implanted:Qty: 1 on 07/11/2024 by Theron Medellin MD at [facility] Right: Inguinal Covidien [id number] 08/29/2028 [id number] / / [id number] Procedures * COMPREHENSIVE METABOLIC PANEL(Performed 08/05/2024) * GLUCOSE - POINT OF CARE(Performed 08/05/2024) * DIFFERENTIAL MANUAL(Performed 07/24/2024) Performed for Pre-liver transplant, listed, Pre-kidney transplant, listed, Alcoholic cirrhosis of liver with ascites (HCC), ESRD on dialysis (HCC), Stage 5 chronic kidney disease (HCC), MPGN (membranoproliferative glomerulonephritides) * PT-INR SLH(Performed 07/24/2024) Performed for Pre-liver transplant, listed, Pre-kidney transplant, listed, Alcoholic cirrhosis of liver with ascites (HCC), ESRD on dialysis (HCC), Stage 5 chronic kidney disease (HCC), MPGN (membranoproliferative glomerulonephritides) * CBC W AUTO DIFFERENTIAL(Performed 07/24/2024) Performed for Pre-liver transplant, listed, Pre-kidney transplant, listed, Alcoholic cirrhosis of liver with ascites (HCC), ESRD on dialysis (HCC), Stage 5 chronic kidney disease (HCC), MPGN (membranoproliferative glomerulonephritides) * COMPREHENSIVE METABOLIC PANEL(Performed 07/24/2024) Performed for Pre-liver transplant, listed, Pre-kidney transplant, listed, Alcoholic cirrhosis of liver with ascites (HCC), ESRD on dialysis (HCC), Stage 5 chronic kidney disease (HCC), MPGN (membranoproliferative glomerulonephritides) * APHERESIS/TRANSFUSION ORDER(Performed 07/14/2024) * PREPARE RBC LEUKOREDUCED UNIT(Performed 07/12/2024) Performed for ESRD (end stage renal disease) on dialysis (HCC), Hepatic cirrhosis, unspecified hepatic cirrhosis type, unspecified whether ascites present (HCC) * PATHOLOGY TISSUE(Performed 07/11/2024) Performed for Inguinal hernia without obstruction or gangrene, recurrence not specified, unspecified laterality * ENDOTRACHEAL TUBE NOTE(Performed 07/11/2024) * TRANSFUSE PLATELET PHERESIS UNIT(S)(Performed 07/11/2024) * OH RPR 1ST INGUN HRNA AGE 5 YRS/> REDUCIBLE(Performed 07/11/2024) Performed for Inguinal hernia without obstruction or gangrene, recurrence not specified, unspecified laterality * PREPARE PLATELET PHERESIS UNIT(S)(Performed 07/11/2024) Performed for ESRD (end stage renal disease) on dialysis (HCC), Hepatic cirrhosis, unspecified hepatic cirrhosis type, unspecified whether ascites present (HCC) * TYPE + SCREEN PANEL(Performed 07/11/2024) Performed for Pre-op evaluation * POTASSIUM WHOLE BLD(Performed 07/11/2024) Performed for Pre-op evaluation * TYPE + SCREEN PANEL(Performed 07/08/2024) Performed for Pre-op evaluation * PT-INR SLH(Performed 07/08/2024) Performed for Inguinal hernia of right side without obstruction or gangrene, Alcoholic cirrhosis ofliver without ascites (HCC), Pre-op evaluation * CBC W AUTO DIFFERENTIAL(Performed 07/08/2024) Performed for Inguinal hernia of right side without obstruction or gangrene, Alcoholic cirrhosis ofliver without ascites (HCC), Pre-op evaluation * COMPREHENSIVE METABOLIC PANEL(Performed 07/08/2024) Performed for Inguinal hernia of right side without obstruction or gangrene, Alcoholic cirrhosis ofliver without ascites (HCC), Pre-op evaluation * PT-INR SLH(Performed 06/26/2024) Performed for Pre-liver transplant, listed, Pre-kidney transplant, listed, Alcoholic cirrhosis of liver with ascites (HCC), ESRD on dialysis (HCC), Stage 5 chronic kidney disease (HCC), MPGN (membranoproliferative glomerulonephritides) * CBC W AUTO DIFFERENTIAL(Performed 06/26/2024) Performed for Pre-liver transplant, listed, Pre-kidney transplant, listed, Alcoholic cirrhosis of liver with ascites (HCC), ESRD on dialysis (HCC), Stage 5 chronic kidney disease (HCC), MPGN (membranoproliferative glomerulonephritides) * COMPREHENSIVE METABOLIC PANEL(Performed 06/26/2024) Performed for Pre-liver transplant, listed, Pre-kidney transplant, listed, Alcoholic cirrhosis of liver with ascites (HCC), ESRD on dialysis (HCC), Stage 5 chronic kidney disease (HCC), MPGN (membranoproliferative glomerulonephritides) * CBC W AUTO DIFFERENTIAL(Performed 06/18/2024) Performed for Acute pain of right knee * PT-INR SLH(Performed 06/18/2024) Performed for Pre-liver transplant, listed, Pre-kidney transplant, listed, Alcoholic cirrhosis of liver with ascites (HCC), ESRD on dialysis (HCC), Stage 5 chronic kidney disease (HCC), MPGN (membranoproliferative glomerulonephritides) * COMPREHENSIVE METABOLIC PANEL(Performed 06/18/2024) Performed for Pre-liver transplant, listed, Pre-kidney transplant, listed, Alcoholic cirrhosis of liver with ascites (HCC), ESRD on dialysis (HCC), Stage 5 chronic kidney disease (HCC), MPGN (membranoproliferative glomerulonephritides) * PT-INR SLH(Performed 06/14/2024) * MAGNESIUM BLOOD(Performed 06/14/2024) * CBC W/O DIFFERENTIAL(Performed 06/14/2024) * BASIC METABOLIC PANEL (CALCIUM TOTAL)(Performed 06/14/2024) * TRANSFUSE RED BLOOD CELL LEUKOREDUCED UNIT(S)(Performed 06/13/2024) * PREPARE RBC LEUKOREDUCED UNIT(Performed 06/13/2024) * VITAMIN B12(Performed 06/13/2024) * FOLATE(Performed 06/13/2024) * HEPATIC FUNCTION PANEL(Performed 06/13/2024) * DIFFERENTIAL MANUAL(Performed 06/13/2024) * CBC W AUTO DIFFERENTIAL(Performed 06/13/2024) * PT-INR SLH(Performed 06/13/2024) * MAGNESIUM BLOOD(Performed 06/13/2024) * CBC W/O DIFFERENTIAL(Performed 06/13/2024) * BASIC METABOLIC PANEL (CALCIUM TOTAL)(Performed 06/13/2024) * HEMODIALYSIS INPATIENT(Performed 06/12/2024) * TYPE + SCREEN PANEL(Performed 06/12/2024) * DIFFERENTIAL MANUAL(Performed 06/12/2024) * IRON + TRANSFERRIN PANEL(Performed 06/12/2024) * FERRITIN(Performed 06/12/2024) * PTH INTACT W/O CALCIUM(Performed 06/12/2024) * PT-INR SLH(Performed 06/12/2024) * MAGNESIUM BLOOD(Performed 06/12/2024) * CBC W/O DIFFERENTIAL(Performed 06/12/2024) * BASIC METABOLIC PANEL (CALCIUM TOTAL)(Performed 06/12/2024) * EKG 12-LEAD(Performed 06/11/2024) Performed for Acute pain of right knee, ESRD (end stage renal disease) (HCC), Hepatic cirrhosis, unspecified hepatic cirrhosis type, unspecified whether ascites present (HCC), Hyperkalemia * COMPREHENSIVE METABOLIC PANEL(Performed 06/11/2024) * CT KNEE RIGHT WO CONTRAST(Performed 06/11/2024) Performed for Acute pain of right knee * XR KNEE RIGHT 3VW(Performed 06/11/2024) Performed for Acute pain of right knee * C-REACTIVE PROTEIN(Performed 06/11/2024) * ERYTHROCYTE SEDIMENTATION RATE(Performed 06/11/2024) * PHOSPHORUS BLOOD(Performed 06/11/2024) * MAGNESIUM BLOOD(Performed 06/11/2024) * COMPREHENSIVE METABOLIC PANEL(Performed 06/11/2024) * CBC W AUTO DIFFERENTIAL(Performed 06/11/2024) * COMPREHENSIVE METABOLIC PANEL(Performed 05/28/2024) Performed for ESRD (end stage renal disease) on dialysis (HCC), Alcoholic cirrhosis of liver without ascites (HCC) * PT-INR SLH(Performed 05/28/2024) Performed for ESRD (end stage renal disease) on dialysis (HCC), Alcoholic cirrhosis of liver without ascites (HCC) * BILIRUBIN DIRECT(Performed 05/28/2024) Performed for ESRD (end stage renal disease) on dialysis (HCC), Alcoholic cirrhosis of liver without ascites (HCC) * CBC W/O DIFFERENTIAL(Performed 05/28/2024) Performed for ESRD (end stage renal disease) on dialysis (HCC), Alcoholic cirrhosis of liver without ascites (HCC) * MAGNESIUM BLOOD(Performed 05/28/2024) Performed for ESRD (end stage renal disease) on dialysis (HCC), Alcoholic cirrhosis of liver without ascites (HCC) * PHOSPHORUS BLOOD(Performed 05/28/2024) Performed for ESRD (end stage renal disease) on dialysis (HCC), Alcoholic cirrhosis of liver without ascites (HCC) * COMPREHENSIVE METABOLIC PANEL(Performed 05/27/2024) Performed for ESRD (end stage renal disease) on dialysis (HCC), Alcoholic cirrhosis of liver without ascites (HCC) * PT-INR SLH(Performed 05/27/2024) Performed for ESRD (end stage renal disease) on dialysis (HCC), Alcoholic cirrhosis of liver without ascites (HCC) * BILIRUBIN DIRECT(Performed 05/27/2024) Performed for ESRD (end stage renal disease) on dialysis (HCC), Alcoholic cirrhosis of liver without ascites (HCC) * CBC W/O DIFFERENTIAL(Performed 05/27/2024) Performed for ESRD (end stage renal disease) on dialysis (HCC), Alcoholic cirrhosis of liver without ascites (HCC) * MAGNESIUM BLOOD(Performed 05/27/2024) Performed for ESRD (end stage renal disease) on dialysis (HCC), Alcoholic cirrhosis of liver without ascites (HCC) * PHOSPHORUS BLOOD(Performed 05/27/2024) Performed for ESRD (end stage renal disease) on dialysis (HCC), Alcoholic cirrhosis of liver without ascites (HCC) * COMPREHENSIVE METABOLIC PANEL(Performed 05/26/2024) Performed for ESRD (end stage renal disease) on dialysis (HCC), Alcoholic cirrhosis of liver without ascites (HCC) * PT-INR SLH(Performed 05/26/2024) Performed for ESRD (end stage renal disease) on dialysis (HCC), Alcoholic cirrhosis of liver without ascites (HCC) * BILIRUBIN DIRECT(Performed 05/26/2024) Performed for ESRD (end stage renal disease) on dialysis (HCC), Alcoholic cirrhosis of liver without ascites (HCC) * CBC W/O DIFFERENTIAL(Performed 05/26/2024) Performed for ESRD (end stage renal disease) on dialysis (HCC), Alcoholic cirrhosis of liver without ascites (HCC) * MAGNESIUM BLOOD(Performed 05/26/2024) Performed for ESRD (end stage renal disease) on dialysis (HCC), Alcoholic cirrhosis of liver without ascites (HCC) * PHOSPHORUS BLOOD(Performed 05/26/2024) Performed for ESRD (end stage renal disease) on dialysis (HCC), Alcoholic cirrhosis of liver without ascites (HCC) * COMPREHENSIVE METABOLIC PANEL(Performed 05/25/2024) Performed for ESRD (end stage renal disease) on dialysis (HCC), Alcoholic cirrhosis of liver without ascites (HCC) * PT-INR SLH(Performed 05/25/2024) Performed for ESRD (end stage renal disease) on dialysis (HCC), Alcoholic cirrhosis of liver without ascites (HCC) * BILIRUBIN DIRECT(Performed 05/25/2024) Performed for ESRD (end stage renal disease) on dialysis (HCC), Alcoholic cirrhosis of liver without ascites (HCC) * CBC W/O DIFFERENTIAL(Performed 05/25/2024) Performed for ESRD (end stage renal disease) on dialysis (HCC), Alcoholic cirrhosis of liver without ascites (HCC) * MAGNESIUM BLOOD(Performed 05/25/2024) Performed for ESRD (end stage renal disease) on dialysis (HCC), Alcoholic cirrhosis of liver without ascites (HCC) * PHOSPHORUS BLOOD(Performed 05/25/2024) Performed for ESRD (end stage renal disease) on dialysis (HCC), Alcoholic cirrhosis of liver without ascites (HCC) * HEMODIALYSIS INPATIENT(Performed 05/25/2024) * XR PANOREX(Performed 05/24/2024) Performed for 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) * COMPREHENSIVE METABOLIC PANEL(Performed 05/24/2024) Performed for ESRD (end stage renal disease) on dialysis (HCC), Alcoholic cirrhosis of liver without ascites (HCC) * PT-INR SLH(Performed 05/24/2024) Performed for ESRD (end stage renal disease) on dialysis (HCC), Alcoholic cirrhosis of liver without ascites (HCC) * BILIRUBIN DIRECT(Performed 05/24/2024) Performed for ESRD (end stage renal disease) on dialysis (HCC), Alcoholic cirrhosis of liver without ascites (HCC) * CBC W/O DIFFERENTIAL(Performed 05/24/2024) Performed for ESRD (end stage renal disease) on dialysis (HCC), Alcoholic cirrhosis of liver without ascites (HCC) * MAGNESIUM BLOOD(Performed 05/24/2024) Performed for ESRD (end stage renal disease) on dialysis (HCC), Alcoholic cirrhosis of liver without ascites (HCC) * PHOSPHORUS BLOOD(Performed 05/24/2024) Performed for ESRD (end stage renal disease) on dialysis (HCC), Alcoholic cirrhosis of liver without ascites (HCC) * PTH INTACT W/O CALCIUM(Performed 05/23/2024) * FERRITIN(Performed 05/23/2024) * VITAMIN D 25-HYDROXY(Performed 05/23/2024) * IRON + TRANSFERRIN PANEL(Performed 05/23/2024) * VANCOMYCIN LEVEL RANDOM(Performed 05/23/2024) * COMPREHENSIVE METABOLIC PANEL(Performed 05/23/2024) Performed for ESRD (end stage renal disease) on dialysis (HCC), Alcoholic cirrhosis of liver without ascites (HCC) * PT-INR SLH(Performed 05/23/2024) Performed for ESRD (end stage renal disease) on dialysis (HCC), Alcoholic cirrhosis of liver without ascites (HCC) * BILIRUBIN DIRECT(Performed 05/23/2024) Performed for ESRD (end stage renal disease) on dialysis (HCC), Alcoholic cirrhosis of liver without ascites (HCC) * CBC W/O DIFFERENTIAL(Performed 05/23/2024) Performed for ESRD (end stage renal disease) on dialysis (HCC), Alcoholic cirrhosis of liver without ascites (HCC) * MAGNESIUM BLOOD(Performed 05/23/2024) Performed for ESRD (end stage renal disease) on dialysis (HCC), Alcoholic cirrhosis of liver without ascites (HCC) * PHOSPHORUS BLOOD(Performed 05/23/2024) Performed for ESRD (end stage renal disease) on dialysis (HCC), Alcoholic cirrhosis of liver without ascites (HCC) * GLUCOSE - POINT OF CARE(Performed 05/22/2024) * HEMODIALYSIS INPATIENT(Performed 05/22/2024) * CHLAMYDIA + GC AMPLIFIED PROBE(Performed 05/22/2024) * GLUCOSE - POINT OF CARE(Performed 05/22/2024) * CULTURE BLOOD(Performed 05/22/2024) * CULTURE BLOOD(Performed 05/22/2024) * GLUCOSE - POINT OF CARE(Performed 05/22/2024) * VANCOMYCIN LEVEL RANDOM(Performed 05/22/2024) * COMPREHENSIVE METABOLIC PANEL(Performed 05/22/2024) Performed for ESRD (end stage renal disease) on dialysis (HCC), Alcoholic cirrhosis of liver without ascites (HCC) * PT-INR SLH(Performed 05/22/2024) Performed for ESRD (end stage renal disease) on dialysis (HCC), Alcoholic cirrhosis of liver without ascites (HCC) * BILIRUBIN DIRECT(Performed 05/22/2024) Performed for ESRD (end stage renal disease) on dialysis (HCC), Alcoholic cirrhosis of liver without ascites (HCC) * CBC W/O DIFFERENTIAL(Performed 05/22/2024) Performed for ESRD (end stage renal disease) on dialysis (HCC), Alcoholic cirrhosis of liver without ascites (HCC) * MAGNESIUM BLOOD(Performed 05/22/2024) Performed for ESRD (end stage renal disease) on dialysis (HCC), Alcoholic cirrhosis of liver without ascites (HCC) * PHOSPHORUS BLOOD(Performed 05/22/2024) Performed for ESRD (end stage renal disease) on dialysis (HCC), Alcoholic cirrhosis of liver without ascites (HCC) * GLUCOSE - POINT OF CARE(Performed 05/21/2024) * GLUCOSE - POINT OF CARE(Performed 05/21/2024) * HEMODIALYSIS INPATIENT(Performed 05/21/2024) * SYPHILIS ANTIBODY CASCADING REFLEX(Performed 05/21/2024) * HEPATITIS C AB SCREEN RFLX NAAT QUANT(Performed 05/21/2024) * HIV-1 HIV-2 ANTIBODY + HIV P24 AG PANEL(Performed 05/21/2024) * VANCOMYCIN LEVEL RANDOM(Performed 05/21/2024) Performed for Pain and swelling of right knee * COMPREHENSIVE METABOLIC PANEL(Performed 05/21/2024) Performed for ESRD (end stage renal disease) on dialysis (HCC), Alcoholic cirrhosis of liver without ascites (HCC) * PT-INR SLH(Performed 05/21/2024) Performed for ESRD (end stage renal disease) on dialysis (HCC), Alcoholic cirrhosis of liver without ascites (HCC) * BILIRUBIN DIRECT(Performed 05/21/2024) Performed for ESRD (end stage renal disease) on dialysis (HCC), Alcoholic cirrhosis of liver without ascites (HCC) * CBC W/O DIFFERENTIAL(Performed 05/21/2024) Performed for ESRD (end stage renal disease) on dialysis (HCC), Alcoholic cirrhosis of liver without ascites (HCC) * MAGNESIUM BLOOD(Performed 05/21/2024) Performed for ESRD (end stage renal disease) on dialysis (HCC), Alcoholic cirrhosis of liver without ascites (HCC) * PHOSPHORUS BLOOD(Performed 05/21/2024) Performed for ESRD (end stage renal disease) on dialysis (HCC), Alcoholic cirrhosis of liver without ascites (HCC) * PATHOLOGY SMEAR BODY FLUID(Performed 05/20/2024) * CRYSTAL INDENTIFICATION SYNOVIAL FLUID(Performed 05/20/2024) * CULTURE WOUND+GRAM STAIN(Performed 05/20/2024) * CULTURE ANAEROBE(Performed 05/20/2024) * ENDOTRACHEAL TUBE NOTE(Performed 05/20/2024) * OH PANKAJ SUBQ TISSUE 20 SQ CM/<(Performed 05/20/2024) Performed for Infection * COMPREHENSIVE METABOLIC PANEL(Performed 05/20/2024) Performed for ESRD (end stage renal disease) on dialysis (HCC), Alcoholic cirrhosis of liver without ascites (HCC) * PT-INR SLH(Performed 05/20/2024) Performed for ESRD (end stage renal disease) on dialysis (HCC), Alcoholic cirrhosis of liver without ascites (HCC) * BILIRUBIN DIRECT(Performed 05/20/2024) Performed for ESRD (end stage renal disease) on dialysis (HCC), Alcoholic cirrhosis of liver without ascites (HCC) * CBC W/O DIFFERENTIAL(Performed 05/20/2024) Performed for ESRD (end stage renal disease) on dialysis (HCC), Alcoholic cirrhosis of liver without ascites (HCC) * MAGNESIUM BLOOD(Performed 05/20/2024) Performed for ESRD (end stage renal disease) on dialysis (HCC), Alcoholic cirrhosis of liver without ascites (HCC) * PHOSPHORUS BLOOD(Performed 05/20/2024) Performed for ESRD (end stage renal disease) on dialysis (HCC), Alcoholic cirrhosis of liver without ascites (HCC) * TRANSFUSE PLATELET PHERESIS UNIT(S)(Performed 05/20/2024) * PREPARE PLATELET PHERESIS UNIT(S)(Performed 05/20/2024) * URIC ACID BLOOD(Performed 05/19/2024) Performed for Pain and swelling of right knee * CBC W/O DIFFERENTIAL(Performed 05/19/2024) Performed for Pain and swelling of right knee, Thrombocytopenia (HCC) * HEMODIALYSIS INPATIENT(Performed 05/19/2024) * CULTURE ANAEROBE(Performed 05/19/2024) Performed for Pain and swelling of right knee * PATHOLOGY SMEAR BODY FLUID(Performed 05/19/2024) Performed for Pain and swelling of right knee * DIFFERENTIAL MANUAL FLUID(Performed 05/19/2024) Performed for Pain and swelling of right knee * CELL COUNT W DIFFERENTIAL FLUID(Performed 05/19/2024) Performed for Pain and swelling of right knee * CULTURE FUNGUS OTHER+FUNGUS SMEAR(Performed 05/19/2024) Performed for Pain and swelling of right knee * CULTURE FLUID+GRAM STAIN(Performed 05/19/2024) Performed for Pain and swelling of right knee * ERYTHROCYTE SEDIMENTATION RATE(Performed 05/19/2024) Performed for Pain and swelling of right knee * C-REACTIVE PROTEIN(Performed 05/19/2024) Performed for Pain and swelling of right knee * CBC W/O DIFFERENTIAL(Performed 05/19/2024) Performed for Thrombocytopenia (HCC) * TRANSFUSE PLATELET PHERESIS UNIT(S)(Performed 05/19/2024) * PREPARE PLATELET PHERESIS UNIT(S)(Performed 05/19/2024) * TYPE + SCREEN PANEL(Performed 05/19/2024) * PT-INR SLH(Performed 05/19/2024) * OBTAIN CONSENT FOR TRANSFUSION(Performed 05/19/2024) * XR KNEE RIGHT 3VW(Performed 05/19/2024) Performed for Pain and swelling of right knee * MAGNESIUM BLOOD(Performed 05/19/2024) * COMPREHENSIVE METABOLIC PANEL(Performed 05/19/2024) * CBC W AUTO DIFFERENTIAL(Performed 05/19/2024) * SLIDE SCAN HEMATOLOGY(Performed 05/01/2024) Performed for Pre-liver transplant, listed, Pre-kidney transplant, listed, Alcoholic cirrhosis of liver with ascites (HCC), ESRD on dialysis (HCC), Stage 5 chronic kidney disease (HCC), MPGN (membranoproliferative glomerulonephritides) * PT-INR SLH(Performed 05/01/2024) Performed for Pre-liver transplant, listed, Pre-kidney transplant, listed, Alcoholic cirrhosis of liver with ascites (HCC), ESRD on dialysis (HCC), Stage 5 chronic kidney disease (HCC), MPGN (membranoproliferative glomerulonephritides) * CBC W AUTO DIFFERENTIAL(Performed 05/01/2024) Performed for Pre-liver transplant, listed, Pre-kidney transplant, listed, Alcoholic cirrhosis of liver with ascites (HCC), ESRD on dialysis (HCC), Stage 5 chronic kidney disease (HCC), MPGN (membranoproliferative glomerulonephritides) * COMPREHENSIVE METABOLIC PANEL(Performed 05/01/2024) Performed for Pre-liver transplant, listed, Pre-kidney transplant, listed, Alcoholic cirrhosis of liver with ascites (HCC), ESRD on dialysis (HCC), Stage 5 chronic kidney disease (HCC), MPGN (membranoproliferative glomerulonephritides) * IMMATURE PLATELET FRACTION(Performed 05/01/2024) Performed for Decompensated hepatic cirrhosis (HCC) * CBC W AUTO DIFFERENTIAL(Performed 04/15/2024) Performed for Alcoholic cirrhosis of liver with ascites (HCC), ESRD on dialysis (HCC), Pre-liver transplant, listed, Pre-kidney transplant, listed, MPGN (membranoproliferative glomerulonephritides) * PT-INR [facility](Performed 04/15/2024) Performed for Alcoholic cirrhosis of liver with ascites (HCC), ESRD on dialysis (HCC), Pre-liver transplant, listed, Pre-kidney transplant, listed, MPGN (membranoproliferative glomerulonephritides) * COMPREHENSIVE METABOLIC PANEL(Performed 04/15/2024) Performed for Alcoholic cirrhosis of liver with ascites (HCC), ESRD on dialysis (HCC), Pre-liver transplant, listed, Pre-kidney transplant, listed, MPGN (membranoproliferative glomerulonephritides) * MRI ABDOMEN WWO CONTRAST(Performed 04/01/2024) Performed for Cirrhosis of liver with ascites, unspecified hepatic cirrhosis type (HCC), Liver lesion * DRUG ABUSE URINE PANEL 9A W/ALC RFLX CONFIRM(Performed 03/17/2024) Performed for ESRD on dialysis (HCC), Alcoholic cirrhosis of liver with ascites (HCC), Stage 5 chronic kidney disease (HCC), Pre-transplant evaluation for liver transplant, Pre-transplant evaluation for kidney transplant, Other ascites, MPGN (membranoproliferative glomerulonephritides), Smoker, Anemia in end-stage renal disease (HCC) * URINALYSIS W/MICROSCOPIC NO CULTURE(Performed 03/17/2024) Performed for ESRD on dialysis (HCC), Alcoholic cirrhosis of liver with ascites (HCC), Stage 5 chronic kidney disease (HCC), Pre-transplant evaluation for liver transplant, Pre-transplant evaluation for kidney transplant, Other ascites, MPGN (membranoproliferative glomerulonephritides), Smoker, Anemia in end-stage renal disease (HCC) * CBC W AUTO DIFFERENTIAL(Performed 03/17/2024) Performed for Alcoholic cirrhosis of liver with ascites (HCC), ESRD on dialysis (HCC), Pre-liver transplant, listed, Pre-kidney transplant, listed, MPGN (membranoproliferative glomerulonephritides) * PT-INR [facility](Performed 03/17/2024) Performed for Alcoholic cirrhosis of liver with ascites (HCC), ESRD on dialysis (HCC), Pre-liver transplant, listed, Pre-kidney transplant, listed, MPGN (membranoproliferative glomerulonephritides) * COMPREHENSIVE METABOLIC PANEL(Performed 03/17/2024) Performed for Alcoholic cirrhosis of liver with ascites (HCC), ESRD on dialysis (HCC), Pre-liver transplant, listed, Pre-kidney transplant, listed, MPGN (membranoproliferative glomerulonephritides) * PT-INR [facility](Performed 03/10/2024) Performed for Alcoholic cirrhosis of liver with ascites (HCC), ESRD on dialysis (HCC), Stage 5 chronic kidney disease (HCC), Pre-liver transplant, listed, Pre- kidney transplant, listed * CBC W AUTO DIFFERENTIAL(Performed 03/10/2024) Performed for Alcoholic cirrhosis of liver with ascites (HCC), ESRD on dialysis (HCC), Stage 5 chronic kidney disease (HCC), Pre-liver transplant, listed, Pre- kidney transplant, listed * COMPREHENSIVE METABOLIC PANEL(Performed 03/10/2024) Performed for Alcoholic cirrhosis of liver with ascites (HCC), ESRD on dialysis (HCC), Stage 5 chronic kidney disease (HCC), Pre-liver transplant, listed, Pre- kidney transplant, listed * HLA ANTIBODY SCREEN LUM CLASS 2 SAB(Performed 02/11/2024) Performed for Alcoholic cirrhosis of liver with ascites (HCC), Stage 5 chronic kidney disease (HCC), ESRD on dialysis (HCC), Pre-transplant evaluation for liver transplant, Pre-transplant evaluation for kidney transplant, Other ascites, MPGN (membranoproliferative glomerulonephritides) * HLA ANTIBODY SCREEN LUM CLASS 1 SAB(Performed 02/11/2024) Performed for Alcoholic cirrhosis of liver with ascites (HCC), Stage 5 chronic kidney disease (HCC), ESRD on dialysis (HCC), Pre-transplant evaluation for liver transplant, Pre-transplant evaluation for kidney transplant, Other ascites, MPGN (membranoproliferative glomerulonephritides) * PT-INR [facility](Performed 02/11/2024) Performed for Alcoholic cirrhosis of liver with ascites (HCC), Stage 5 chronic kidney disease (HCC), ESRD on dialysis (HCC), Pre-transplant evaluation for liver transplant, Pre-transplant evaluation for kidney transplant, Other ascites, MPGN (membranoproliferative glomerulonephritides) * CBC W AUTO DIFFERENTIAL(Performed 02/11/2024) Performed for Alcoholic cirrhosis of liver with ascites (HCC), Stage 5 chronic kidney disease (HCC), ESRD on dialysis (HCC), Pre-transplant evaluation for liver transplant, Pre-transplant evaluation for kidney transplant, Other ascites, MPGN (membranoproliferative glomerulonephritides) * COMPREHENSIVE METABOLIC PANEL(Performed 02/11/2024) Performed for Alcoholic cirrhosis of liver with ascites (HCC), Stage 5 chronic kidney disease (HCC), ESRD on dialysis (HCC), Pre-transplant evaluation for liver transplant, Pre-transplant evaluation for kidney transplant, Other ascites, MPGN (membranoproliferative glomerulonephritides) * CT ABDOMEN PELVIS WO CONTRAST(Performed 01/21/2024) Performed for ESRD on dialysis (HCC), Alcoholic cirrhosis of liver with ascites (HCC), Stage 5 chronic kidney disease (HCC), Pre-transplant evaluation for liver transplant, Pre-transplant evaluation for kidney transplant, MPGN (membranoproliferative glomerulonephritides), Other ascites * CARDIAC EKG ORDER(Performed 01/17/2024) * NM MYOCARD PERF REST STRESS(Performed 01/11/2024) Performed for ESRD on dialysis (HCC), Alcoholic cirrhosis of liver with ascites (HCC), Stage 5 chronic kidney disease (HCC), Pre-transplant evaluation for liver transplant, Pre-transplant evaluation for kidney transplant * STRESS TEST(Performed 01/11/2024) Performed for ESRD on dialysis (HCC), Alcoholic cirrhosis of liver with ascites (HCC), Stage 5 chronic kidney disease (HCC), Pre-transplant evaluation for liver transplant, Pre-transplant evaluation for kidney transplant * ECHO STRESS DOBUTAMINE COLOR FLOW AND DOPP W CONT(Performed 12/25/2023) Performed for ESRD on dialysis (HCC), Alcoholic cirrhosis of liver with ascites (HCC), Stage 5 chronic kidney disease (HCC), Pre-transplant evaluation for liver transplant, Pre-transplant evaluation for kidney transplant, Other ascites, MPGN (membranoproliferative glomerulonephritides), Smoker, Anemia in end-stage renal disease (HCC) * BLOOD TYPE ABO+ RH PANEL(Performed 12/25/2023) Performed for ESRD on dialysis (HCC), Alcoholic cirrhosis of liver with ascites (HCC), Stage 5 chronic kidney disease (HCC), Pre-transplant evaluation for liver transplant, Pre-transplant evaluation for kidney transplant, Other ascites, MPGN (membranoproliferative glomerulonephritides), Smoker, Anemia in end-stage renal disease (HCC) * TYPE + SCREEN PANEL(Performed 12/25/2023) Performed for ESRD on dialysis (HCC), Alcoholic cirrhosis of liver with ascites (HCC), Stage 5 chronic kidney disease (HCC), Pre-transplant evaluation for liver transplant, Pre-transplant evaluation for kidney transplant, Other ascites, MPGN (membranoproliferative glomerulonephritides), Smoker, Anemia in end-stage renal disease (HCC) * PTH INTACT W/O CALCIUM(Performed 12/25/2023) Performed for Pre-transplant evaluation for liver transplant * LUPUS ANTICOAGULANT PANEL(Performed 12/25/2023) Performed for ESRD on dialysis (HCC), Alcoholic cirrhosis of liver with ascites (HCC), Stage 5 chronic kidney disease (HCC), Pre-transplant evaluation for liver transplant, Pre-transplant evaluation for kidney transplant, Other ascites, MPGN (membranoproliferative glomerulonephritides), Smoker, Anemia in end-stage renal disease (HCC) * VITAMIN D 25-HYDROXY(Performed 12/25/2023) Performed for ESRD on dialysis (HCC), Alcoholic cirrhosis of liver with ascites (HCC), Stage 5 chronic kidney disease (HCC), Pre-transplant evaluation for liver transplant, Pre-transplant evaluation for kidney transplant, Other ascites, MPGN (membranoproliferative glomerulonephritides), Smoker, Anemia in end-stage renal disease (HCC) * URIC ACID BLOOD(Performed 12/25/2023) Performed for ESRD on dialysis (HCC), Alcoholic cirrhosis of liver with ascites (HCC), Stage 5 chronic kidney disease (HCC), Pre-transplant evaluation for liver transplant, Pre-transplant evaluation for kidney transplant, Other ascites, MPGN (membranoproliferative glomerulonephritides), Smoker, Anemia in end-stage renal disease (HCC) * STRONGYLOIDES ANTIBODY IGG(Performed 12/25/2023) Performed for ESRD on dialysis (HCC), Alcoholic cirrhosis of liver with ascites (HCC), Stage 5 chronic kidney disease (HCC), Pre-transplant evaluation for liver transplant, Pre-transplant evaluation for kidney transplant, Other ascites, MPGN (membranoproliferative glomerulonephritides), Smoker, Anemia in end-stage renal disease (HCC) * TOXOPLASMA GONDII ANTIBODY IGG(Performed 12/25/2023) Performed for ESRD on dialysis (HCC), Alcoholic cirrhosis of liver with ascites (HCC), Stage 5 chronic kidney disease (HCC), Pre-transplant evaluation for liver transplant, Pre-transplant evaluation for kidney transplant, Other ascites, MPGN (membranoproliferative glomerulonephritides), Smoker, Anemia in end-stage renal disease (HCC) * PROSTATE SPECIFIC ANTIGEN SCREEN(Performed 12/25/2023) Performed for ESRD on dialysis (HCC), Alcoholic cirrhosis of liver with ascites (HCC), Stage 5 chronic kidney disease (HCC), Pre-transplant evaluation for liver transplant, Pre-transplant evaluation for kidney transplant, Other ascites, MPGN (membranoproliferative glomerulonephritides), Smoker, Anemia in end-stage renal disease (HCC) * QUANTIFERON-TB GOLD PLUS 4-TUBE(Performed 12/25/2023) Performed for ESRD on dialysis (HCC), Alcoholic cirrhosis of liver with ascites (HCC), Stage 5 chronic kidney disease (HCC), Pre-transplant evaluation for liver transplant, Pre-transplant evaluation for kidney transplant, Other ascites, MPGN (membranoproliferative glomerulonephritides), Smoker, Anemia in end-stage renal disease (HCC) * VARICELLA ZOSTER ANTIBODY IGG(Performed 12/25/2023) Performed for ESRD on dialysis (HCC), Alcoholic cirrhosis of liver with ascites (HCC), Stage 5 chronic kidney disease (HCC), Pre-transplant evaluation for liver transplant, Pre-transplant evaluation for kidney transplant, Other ascites, MPGN (membranoproliferative glomerulonephritides), Smoker, Anemia in end-stage renal disease (HCC) * RUBELLA ANTIBODY IGG TITER(Performed 12/25/2023) Performed for ESRD on dialysis (HCC), Alcoholic cirrhosis of liver with ascites (HCC), Stage 5 chronic kidney disease (HCC), Pre-transplant evaluation for liver transplant, Pre-transplant evaluation for kidney transplant, Other ascites, MPGN (membranoproliferative glomerulonephritides), Smoker, Anemia in end-stage renal disease (HCC) * MUMPS ANTIBODY IGG(Performed 12/25/2023) Performed for ESRD on dialysis (HCC), Alcoholic cirrhosis of liver with ascites (HCC), Stage 5 chronic kidney disease (HCC), Pre-transplant evaluation for liver transplant, Pre-transplant evaluation for kidney transplant, Other ascites, MPGN (membranoproliferative glomerulonephritides), Smoker, Anemia in end-stage renal disease (HCC) * RUBEOLA ANTIBODY IGG(Performed 12/25/2023) Performed for ESRD on dialysis (HCC), Alcoholic cirrhosis of liver with ascites (HCC), Stage 5 chronic kidney disease (HCC), Pre-transplant evaluation for liver transplant, Pre-transplant evaluation for kidney transplant, Other ascites, MPGN (membranoproliferative glomerulonephritides), Smoker, Anemia in end-stage renal disease (HCC) * NICOTINE + METABOLITES BLOOD(Performed 12/25/2023) Performed for ESRD on dialysis (HCC), Alcoholic cirrhosis of liver with ascites (HCC), Stage 5 chronic kidney disease (HCC), Pre-transplant evaluation for liver transplant, Pre-transplant evaluation for kidney transplant, Other ascites, MPGN (membranoproliferative glomerulonephritides), Smoker, Anemia in end-stage renal disease (HCC) * PHOSPHATIDYLETHANOL (PETH)(Performed 12/25/2023) Performed for ESRD on dialysis (HCC), Alcoholic cirrhosis of liver with ascites (HCC), Stage 5 chronic kidney disease (HCC), Pre-transplant evaluation for liver transplant, Pre-transplant evaluation for kidney transplant, Other ascites, MPGN (membranoproliferative glomerulonephritides), Smoker, Anemia in end-stage renal disease (HCC) * SYPHILIS ANTIBODY CASCADING REFLEX(Performed 12/25/2023) Performed for ESRD on dialysis (HCC), Alcoholic cirrhosis of liver with ascites (HCC), Stage 5 chronic kidney disease (HCC), Pre-transplant evaluation for liver transplant, Pre-transplant evaluation for kidney transplant, Other ascites, MPGN (membranoproliferative glomerulonephritides), Smoker, Anemia in end-stage renal disease (HCC) * HEMOGLOBIN A1C(Performed 12/25/2023) Performed for ESRD on dialysis (HCC), Alcoholic cirrhosis of liver with ascites (HCC), Stage 5 chronic kidney disease (HCC), Pre-transplant evaluation for liver transplant, Pre-transplant evaluation for kidney transplant, Other ascites, MPGN (membranoproliferative glomerulonephritides), Smoker, Anemia in end-stage renal disease (HCC) * KATIE-TRINIDAD VIRUS ANTIBODY TO VCA IGG(Performed 12/25/2023) Performed for ESRD on dialysis (HCC), Alcoholic cirrhosis of liver with ascites (HCC), Stage 5 chronic kidney disease (HCC), Pre-transplant evaluation for liver transplant, Pre-transplant evaluation for kidney transplant, Other ascites, MPGN (membranoproliferative glomerulonephritides), Smoker, Anemia in end-stage renal disease (HCC) * CYTOMEGALOVIRUS ANTIBODY IGG BLOOD(Performed 12/25/2023) Performed for ESRD on dialysis (HCC), Alcoholic cirrhosis of liver with ascites (HCC), Stage 5 chronic kidney disease (HCC), Pre-transplant evaluation for liver transplant, Pre-transplant evaluation for kidney transplant, Other ascites, MPGN (membranoproliferative glomerulonephritides), Smoker, Anemia in end-stage renal disease (HCC) * HIV-1 HIV-2 ANTIBODY + HIV P24 AG PANEL(Performed 12/25/2023) Performed for ESRD on dialysis (HCC), Alcoholic cirrhosis of liver with ascites (HCC), Stage 5 chronic kidney disease (HCC), Pre-transplant evaluation for liver transplant, Pre-transplant evaluation for kidney transplant, Other ascites, MPGN (membranoproliferative glomerulonephritides), Smoker, Anemia in end-stage renal disease (HCC) * ALPHA FETOPROTEIN BLOOD TUMOR MARKER(Performed 12/25/2023) Performed for ESRD on dialysis (HCC), Alcoholic cirrhosis of liver with ascites (HCC), Stage 5 chronic kidney disease (HCC), Pre-transplant evaluation for liver transplant, Pre-transplant evaluation for kidney transplant, Other ascites, MPGN (membranoproliferative glomerulonephritides), Smoker, Anemia in end-stage renal disease (HCC) * PT-INR [facility](Performed 12/25/2023) Performed for ESRD on dialysis (HCC), Alcoholic cirrhosis of liver with ascites (HCC), Stage 5 chronic kidney disease (HCC), Pre-transplant evaluation for liver transplant, Pre-transplant evaluation for kidney transplant, Other ascites, MPGN (membranoproliferative glomerulonephritides), Smoker, Anemia in end-stage renal disease (HCC) * HEPATITIS C ANTIBODY(Performed 12/25/2023) Performed for ESRD on dialysis (HCC), Alcoholic cirrhosis of liver with ascites (HCC), Stage 5 chronic kidney disease (HCC), Pre-transplant evaluation for liver transplant, Pre-transplant evaluation for kidney transplant, Other ascites, MPGN (membranoproliferative glomerulonephritides), Smoker, Anemia in end-stage renal disease (HCC) * HEPATITIS B SURFACE ANTIBODY(Performed 12/25/2023) Performed for ESRD on dialysis (HCC), Alcoholic cirrhosis of liver with ascites (HCC), Stage 5 chronic kidney disease (HCC), Pre-transplant evaluation for liver transplant, Pre-transplant evaluation for kidney transplant, Other ascites, MPGN (membranoproliferative glomerulonephritides), Smoker, Anemia in end-stage renal disease (HCC) * HEPATITIS B CORE ANTIBODY TOTAL(Performed 12/25/2023) Performed for ESRD on dialysis (HCC), Alcoholic cirrhosis of liver with ascites (HCC), Stage 5 chronic kidney disease (HCC), Pre-transplant evaluation for liver transplant, Pre-transplant evaluation for kidney transplant, Other ascites, MPGN (membranoproliferative glomerulonephritides), Smoker, Anemia in end-stage renal disease (HCC) * HEPATITIS B SURFACE ANTIGEN W RFLX CONFIRMATION(Performed 12/25/2023) Performed for ESRD on dialysis (HCC), Alcoholic cirrhosis of liver with ascites (HCC), Stage 5 chronic kidney disease (HCC), Pre-transplant evaluation for liver transplant, Pre-transplant evaluation for kidney transplant, Other ascites, MPGN (membranoproliferative glomerulonephritides), Smoker, Anemia in end-stage renal disease (HCC) * HEPATITIS A ANTIBODY(Performed 12/25/2023) Performed for ESRD on dialysis (HCC), Alcoholic cirrhosis of liver with ascites (HCC), Stage 5 chronic kidney disease (HCC), Pre-transplant evaluation for liver transplant, Pre-transplant evaluation for kidney transplant, Other ascites, MPGN (membranoproliferative glomerulonephritides), Smoker, Anemia in end-stage renal disease (HCC) * LIPID PROFILE(Performed 12/25/2023) Performed for ESRD on dialysis (HCC), Alcoholic cirrhosis of liver with ascites (HCC), Stage 5 chronic kidney disease (HCC), Pre-transplant evaluation for liver transplant, Pre-transplant evaluation for kidney transplant, Other ascites, MPGN (membranoproliferative glomerulonephritides), Smoker, Anemia in end-stage renal disease (HCC) * PHOSPHORUS BLOOD(Performed 12/25/2023) Performed for ESRD on dialysis (HCC), Alcoholic cirrhosis of liver with ascites (HCC), Stage 5 chronic kidney disease (HCC), Pre-transplant evaluation for liver transplant, Pre-transplant evaluation for kidney transplant, Other ascites, MPGN (membranoproliferative glomerulonephritides), Smoker, Anemia in end-stage renal disease (HCC) * IRON BLOOD(Performed 12/25/2023) Performed for ESRD on dialysis (HCC), Alcoholic cirrhosis of liver with ascites (HCC), Stage 5 chronic kidney disease (HCC), Pre-transplant evaluation for liver transplant, Pre-transplant evaluation for kidney transplant, Other ascites, MPGN (membranoproliferative glomerulonephritides), Smoker, Anemia in end-stage renal disease (HCC) * FERRITIN(Performed 12/25/2023) Performed for ESRD on dialysis (HCC), Alcoholic cirrhosis of liver with ascites (HCC), Stage 5 chronic kidney disease (HCC), Pre-transplant evaluation for liver transplant, Pre-transplant evaluation for kidney transplant, Other ascites, MPGN (membranoproliferative glomerulonephritides), Smoker, Anemia in end-stage renal disease (HCC) * TRANSFERRIN(Performed 12/25/2023) Performed for ESRD on dialysis (HCC), Alcoholic cirrhosis of liver with ascites (HCC), Stage 5 chronic kidney disease (HCC), Pre-transplant evaluation for liver transplant, Pre-transplant evaluation for kidney transplant, Other ascites, MPGN (membranoproliferative glomerulonephritides), Smoker, Anemia in end-stage renal disease (HCC) * COMPREHENSIVE METABOLIC PANEL(Performed 12/25/2023) Performed for ESRD on dialysis (HCC), Alcoholic cirrhosis of liver with ascites (HCC), Stage 5 chronic kidney disease (HCC), Pre-transplant evaluation for liver transplant, Pre-transplant evaluation for kidney transplant, Other ascites, MPGN (membranoproliferative glomerulonephritides), Smoker, Anemia in end-stage renal disease (HCC) * CBC W AUTO DIFFERENTIAL(Performed 12/25/2023) Performed for ESRD on dialysis (HCC), Alcoholic cirrhosis of liver with ascites (HCC), Stage 5 chronic kidney disease (HCC), Pre-transplant evaluation for liver transplant, Pre-transplant evaluation for kidney transplant, Other ascites, MPGN (membranoproliferative glomerulonephritides), Smoker, Anemia in end-stage renal disease (HCC) * XR PANOREX(Performed 12/25/2023) Performed for ESRD on dialysis (HCC), Alcoholic cirrhosis of liver with ascites (HCC), Stage 5 chronic kidney disease (HCC), Pre-transplant evaluation for liver transplant, Pre-transplant evaluation for kidney transplant, Other ascites, MPGN (membranoproliferative glomerulonephritides), Smoker, Anemia in end-stage renal disease (HCC) * MRI ABDOMEN WWO CONTRAST(Performed 12/25/2023) Performed for ESRD on dialysis (HCC), Alcoholic cirrhosis of liver with ascites (HCC), Stage 5 chronic kidney disease (HCC), Pre-transplant evaluation for liver transplant, Pre-transplant evaluation for kidney transplant, Other ascites, MPGN (membranoproliferative glomerulonephritides), Smoker, Anemia in end-stage renal disease (HCC) * COMPREHENSIVE METABOLIC PANEL(Performed 11/02/2023) * CBC W/O DIFFERENTIAL(Performed 11/02/2023) * MAGNESIUM BLOOD(Performed 11/02/2023) * PHOSPHORUS BLOOD(Performed 11/02/2023) * PT-INR [facility](Performed 11/02/2023) * HEMODIALYSIS INPATIENT(Performed 11/01/2023) * GLUCOSE - POINT OF CARE(Performed 11/01/2023) * ECHO COMPLETE(Performed 11/01/2023) Performed for Systolic murmur * COMPREHENSIVE METABOLIC PANEL(Performed 11/01/2023) * CBC W/O DIFFERENTIAL(Performed 11/01/2023) * MAGNESIUM BLOOD(Performed 11/01/2023) * PHOSPHORUS BLOOD(Performed 11/01/2023) * PT-INR [facility](Performed 11/01/2023) * GLUCOSE - POINT OF CARE(Performed 10/31/2023) * GLUCOSE - POINT OF CARE(Performed 10/31/2023) * CARDIAC EKG ORDER(Performed 10/31/2023) * GLUCOSE - POINT OF CARE(Performed 10/31/2023) * HEMODIALYSIS INPATIENT(Performed 10/31/2023) * TRIGLYCERIDES BLOOD(Performed 10/31/2023) * COMPREHENSIVE METABOLIC PANEL(Performed 10/31/2023) * CBC W/O DIFFERENTIAL(Performed 10/31/2023) * MAGNESIUM BLOOD(Performed 10/31/2023) * PHOSPHORUS BLOOD(Performed 10/31/2023) * PT-INR [facility](Performed 10/31/2023) * GLUCOSE - POINT OF CARE(Performed 10/31/2023) * GLUCOSE - POINT OF CARE(Performed 10/30/2023) * GLUCOSE - POINT OF CARE(Performed 10/30/2023) * GLUCOSE - POINT OF CARE(Performed 10/30/2023) * HEMODIALYSIS INPATIENT(Performed 10/30/2023) * PHOSPHATIDYLETHANOL (PETH)(Performed 10/30/2023) * COMPREHENSIVE METABOLIC PANEL(Performed 10/30/2023) * CBC W/O DIFFERENTIAL(Performed 10/30/2023) * MAGNESIUM BLOOD(Performed 10/30/2023) * PHOSPHORUS BLOOD(Performed 10/30/2023) * PT-INR [facility](Performed 10/30/2023) * GLUCOSE - POINT OF CARE(Performed 10/30/2023) * GLUCOSE - POINT OF CARE(Performed 10/30/2023) * GLUCOSE - POINT OF CARE(Performed 10/29/2023) * LEVETIRACETAM LEVEL(Performed 10/29/2023) * AMMONIA(Performed 10/29/2023) * BLOOD GASES ART + COOX PANEL(Performed 10/29/2023) * XR ABDOMEN KUB PORTABLE(Performed 10/29/2023) Performed for ESRD on dialysis (HCC) * XR CHEST 1VW PORTABLE(Performed 10/29/2023) Performed for End stage renal disease (HCC), Cirrhosis of liver with ascites, unspecified hepatic cirrhosis type (HCC) * CT HEAD WO CONTRAST(Performed 10/29/2023) Performed for ESRD on dialysis (HCC), Seizures (HCC) * BLOOD GASES ART + COOX PANEL(Performed 10/29/2023) * AMMONIA(Performed 10/29/2023) * LACTIC ACID BLOOD(Performed 10/29/2023) * RENAL FUNCTION PANEL(Performed 10/29/2023) * PHOSPHORUS BLOOD(Performed 10/29/2023) * HEPATIC FUNCTION PANEL(Performed 10/29/2023) * BASIC METABOLIC PANEL (CALCIUM TOTAL)(Performed 10/29/2023) * CBC W/O DIFFERENTIAL(Performed 10/29/2023) * GLUCOSE - POINT OF CARE(Performed 10/29/2023) * HEPATITIS B SURFACE ANTIBODY QUANT(Performed 10/29/2023) Performed for ESRD (end stage renal disease) on dialysis (HCC) * HEPATITIS B SURFACE ANTIGEN W RFLX CONFIRMATION(Performed 10/29/2023) Performed for ESRD (end stage renal disease) on dialysis (HCC) * GLUCOSE - POINT OF CARE(Performed 10/29/2023) * HEMODIALYSIS INPATIENT(Performed 10/29/2023) * XR CHEST 2VW(Performed 10/29/2023) Performed for Malaise * SARS-COV-2 (COVID-19)+INFLU A+B PCR RAPID(Performed 10/29/2023) * ALCOHOL ETHYL BLOOD(Performed 10/29/2023) * PHOSPHORUS BLOOD(Performed 10/29/2023) * MAGNESIUM BLOOD(Performed 10/29/2023) * PT-INR [facility](Performed 10/29/2023) * LIPASE BLOOD(Performed 10/29/2023) * LACTIC ACID BLOOD REFLEX TO REPEAT(Performed 10/29/2023) * COMPREHENSIVE METABOLIC PANEL(Performed 10/29/2023) * CBC W AUTO DIFFERENTIAL(Performed 10/29/2023) * EKG 12-LEAD(Performed 10/29/2023) Performed for [place] * [place] ED EGD FLEX TRANSORAL DX(Performed 09/13/2023) Performed for Alcoholic cirrhosis of liver without ascites (HCC) * EGD(Performed 09/13/2023) Performed for Alcoholic cirrhosis of liver without ascites (HCC), Colon cancer screening * CBC W/O DIFFERENTIAL(Performed 09/13/2023) Performed for Alcoholic cirrhosis of liver without ascites (HCC) * HEPATIC FUNCTION PANEL(Performed 09/13/2023) Performed for Alcoholic cirrhosis of liver without ascites (HCC), Colon cancer screening * ALPHA FETOPROTEIN BLOOD TUMOR MARKER(Performed 09/13/2023) Performed for Alcoholic cirrhosis of liver without ascites (HCC), Colon cancer screening * PT-INR [facility](Performed 09/13/2023) Performed for Alcoholic cirrhosis of liver without ascites (HCC), Colon cancer screening * BASIC METABOLIC PANEL (CALCIUM TOTAL)(Performed 09/13/2023) Performed for Alcoholic cirrhosis of liver without ascites (HCC), Colon cancer screening * CARDIAC EKG ORDER(Performed 07/24/2023) * US ABDOMEN LIMITED(Performed 06/20/2023) Performed for Alcoholic cirrhosis of liver without ascites (HCC) * EEG EXTENDED MONITORING > 1 HOUR(Performed 05/22/2023) Performed for Seizure (HCC) * DRUG ABUSE URINE PANEL 9 W RFLX TO CONFIRM(Performed 05/03/2023) Performed for ESRD on dialysis (HCC), Alcoholic cirrhosis of liver with ascites (HCC), Stage 5 chronic kidney disease (HCC), Pre-transplant evaluation for liver transplant, Pre-transplant evaluation for kidney transplant, Cirrhosis of liver with ascites, unspecified hepatic cirrhosis type (HCC), Smoker * FOFANA/SUPERINTENDENT HOUSE (FRANCESCA) ANTIBODY IGG(Performed 04/26/2023) Performed for ESRD on dialysis (HCC), Anemia in end-stage renal disease (HCC) * BILL ONLY THROMBIN TIME(Performed 04/26/2023) Performed for ESRD on dialysis (HCC), Alcoholic cirrhosis of liver with ascites (HCC), Stage 5 chronic kidney disease (HCC), Pre-transplant evaluation for liver transplant, Pre-transplant evaluation for kidney transplant, Other ascites * BILL ONLY PTT-D 1:1 MIX(Performed 04/26/2023) Performed for ESRD on dialysis (HCC), Alcoholic cirrhosis of liver with ascites (HCC), Stage 5 chronic kidney disease (HCC), Pre-transplant evaluation for liver transplant, Pre-transplant evaluation for kidney transplant, Other ascites * LEVETIRACETAM LEVEL(Performed 04/26/2023) Performed for Seizure (HCC) * ANTIPHOSPHOLIPID ANTIBODY PANEL(Performed 04/26/2023) Performed for ESRD on dialysis (HCC), Alcoholic cirrhosis of liver with ascites (HCC), Stage 5 chronic kidney disease (HCC), Pre-transplant evaluation for liver transplant, Pre-transplant evaluation for kidney transplant, Other ascites * PHOSPHATIDYLETHANOL (PETH)(Performed 04/26/2023) Performed for ESRD on dialysis (HCC), Alcoholic cirrhosis of liver with ascites (HCC), Stage 5 chronic kidney disease (HCC), Pre-transplant evaluation for liver transplant, Pre-transplant evaluation for kidney transplant, Cirrhosis of liver with ascites, unspecified hepatic cirrhosis type (HCC) * CBC W AUTO DIFFERENTIAL(Performed 04/26/2023) Performed for ESRD on dialysis (HCC), Pre-transplant evaluation for liver transplant, Pre-transplant evaluation for kidney transplant, Alcoholic cirrhosis of liver with ascites (HCC), Stage 5 chronickidney disease (HCC), Other ascites, MPGN (membranoproliferative glomerulonephritides) * PT-INR [facility](Performed 04/26/2023) Performed for ESRD on dialysis (HCC), Pre-transplant evaluation for liver transplant, Pre-transplant evaluation for kidney transplant, Alcoholic cirrhosis of liver with ascites (HCC), Stage 5 chronickidney disease (HCC), Other ascites, MPGN (membranoproliferative glomerulonephritides) * COMPREHENSIVE METABOLIC PANEL(Performed 04/26/2023) Performed for ESRD on dialysis (HCC), Pre-transplant evaluation for liver transplant, Pre-transplant evaluation for kidney transplant, Alcoholic cirrhosis of liver with ascites (HCC), Stage 5 chronickidney disease (HCC), Other ascites, MPGN (membranoproliferative glomerulonephritides) * COMPLEMENT ACTIVITY TOTAL (CH50)(Performed 04/26/2023) Performed for Portal hypertension (HCC), S/P arteriovenous (AV) graft placement, Decompensated hepatic cirrhosis (HCC), Alcoholic cirrhosis of liver with ascites (HCC), MPGN (membranoproliferative glomerulonephritides), Stage 5 chronic kidney disease (HCC), ESRD on dialysis (HCC), Lupus (HCC), Pre-transplant evaluation for liver transplant, Pre-transplant evaluation for kidney transplant * COMPLEMENT C4(Performed 04/26/2023) Performed for Portal hypertension (HCC), S/P arteriovenous (AV) graft placement, Decompensated hepatic cirrhosis (HCC), Alcoholic cirrhosis of liver with ascites (HCC), MPGN (membranoproliferative glomerulonephritides), Stage 5 chronic kidney disease (HCC), ESRD on dialysis (HCC), Lupus (HCC), Pre-transplant evaluation for liver transplant, Pre-transplant evaluation for kidney transplant * COMPLEMENT C3(Performed 04/26/2023) Performed for Portal hypertension (HCC), S/P arteriovenous (AV) graft placement, Decompensated hepatic cirrhosis (HCC), Alcoholic cirrhosis of liver with ascites (HCC), MPGN (membranoproliferative glomerulonephritides), Stage 5 chronic kidney disease (HCC), ESRD on dialysis (HCC), Lupus (HCC), Pre-transplant evaluation for liver transplant, Pre-transplant evaluation for kidney transplant * FOFANA (SM) ANTIBODY FRANCESCA(Performed 04/26/2023) Performed for Portal hypertension (HCC), S/P arteriovenous (AV) graft placement, Decompensated hepatic cirrhosis (HCC), Alcoholic cirrhosis of liver with ascites (HCC), MPGN (membranoproliferative glomerulonephritides), Stage 5 chronic kidney disease (HCC), ESRD on dialysis (HCC), Lupus (HCC), Pre-transplant evaluation for liver transplant, Pre-transplant evaluation for kidney transplant * DNA ANTIBODY DOUBLE STRANDED(Performed 04/26/2023) Performed for Portal hypertension (HCC), S/P arteriovenous (AV) graft placement, Decompensated hepatic cirrhosis (HCC), Alcoholic cirrhosis of liver with ascites (HCC), MPGN (membranoproliferative glomerulonephritides), Stage 5 chronic kidney disease (HCC), ESRD on dialysis (HCC), Lupus (HCC), Pre-transplant evaluation for liver transplant, Pre-transplant evaluation for kidney transplant * LUPUS ANTICOAGULANT PANEL(Performed 04/26/2023) Performed for Portal hypertension (HCC), S/P arteriovenous (AV) graft placement, Decompensated hepatic cirrhosis (HCC), Alcoholic cirrhosis of liver with ascites (HCC), MPGN (membranoproliferative glomerulonephritides), Stage 5 chronic kidney disease (HCC), ESRD on dialysis (HCC), Lupus (HCC), Pre-transplant evaluation for liver transplant, Pre-transplant evaluation for kidney transplant * ECHO COMPLETE(Performed 02/13/2023) Performed for Portal hypertension (HCC), MPGN (membranoproliferative glomerulonephritides), ESRD ondialysis (HCC), Lupus, Pre-transplant evaluation for liver transplant, Pre-transplant evaluation for kidney transplant, Internal carotid aneurysm (HCC), Pancytopenia (HCC), Decompensated hepatic cirrhosis (HCC) * VAS CAROTID DUPLEX BILATERAL(Performed 02/13/2023) Performed for Dependence on renal dialysis (HCC), Pre-transplant evaluation for liver transplant, Seizures (HCC), Alcoholic cirrhosis of liver with ascites (HCC), Portal hypertension (HCC), S/P arteriovenous (AV) graft placement, Decompensated hepatic cirrhosis (HCC), Encounter for pre-transplant evaluation for kidney transplant, Internal carotid aneurysm (HCC) * BILL ONLY REPTILASE TIME(Performed 01/29/2023) Performed for Pre-transplant evaluation for liver transplant, Cirrhosis of liver with ascites, unspecified hepatic cirrhosis type (HCC), End stage renal disease (HCC), Decompensated hepatic cirrhosis(HCC), Hyperglycemia, S/P arteriovenous (AV) graft placement, Seizures (HCC) * BILL ONLY HEPARIN NEUTRALIZATION(Performed 01/29/2023) Performed for Pre-transplant evaluation for liver transplant, Cirrhosis of liver with ascites, unspecified hepatic cirrhosis type (HCC), End stage renal disease (HCC), Decompensated hepatic cirrhosis(HCC), Hyperglycemia, S/P arteriovenous (AV) graft placement, Seizures (HCC) * BILL ONLY THROMBIN TIME(Performed 01/29/2023) Performed for Pre-transplant evaluation for liver transplant, Cirrhosis of liver with ascites, unspecified hepatic cirrhosis type (HCC), End stage renal disease (HCC), Decompensated hepatic cirrhosis(HCC), Hyperglycemia, S/P arteriovenous (AV) graft placement, Seizures (HCC) * BILL ONLY PTT-D 1:1 MIX(Performed 01/29/2023) Performed for Pre-transplant evaluation for liver transplant, Cirrhosis of liver with ascites, unspecified hepatic cirrhosis type (HCC), End stage renal disease (HCC), Decompensated hepatic cirrhosis(HCC), Hyperglycemia, S/P arteriovenous (AV) graft placement, Seizures (HCC) * ANTIPHOSPHOLIPID ANTIBODY PANEL(Performed 01/29/2023) Performed for Pre-transplant evaluation for liver transplant, Cirrhosis of liver with ascites, unspecified hepatic cirrhosis type (HCC), End stage renal disease (HCC), Decompensated hepatic cirrhosis(HCC), Hyperglycemia, S/P arteriovenous (AV) graft placement, Seizures (HCC) * CBC W AUTO DIFFERENTIAL(Performed 01/29/2023) Performed for Cirrhosis of liver with ascites, unspecified hepatic cirrhosis type (HCC), Pre-transplant evaluation for liver transplant, End stage renal disease (HCC), S/P arteriovenous (AV) graft placement, Dependence on renal dialysis (HCC), Stage 5 chronic kidney disease (HCC), Encounter for pre- transplant evaluation for kidney transplant, Anemia in end-stage renal disease (HCC) * PT-INR [facility](Performed 01/29/2023) Performed for Cirrhosis of liver with ascites, unspecified hepatic cirrhosis type (HCC), Pre-transplant evaluation for liver transplant, End stage renal disease (HCC), S/P arteriovenous (AV) graft placement, Dependence on renal dialysis (HCC), Stage 5 chronic kidney disease (HCC), Encounter for pre- transplant evaluation for kidney transplant, Anemia in end-stage renal disease (HCC) * COMPREHENSIVE METABOLIC PANEL(Performed 01/29/2023) Performed for Cirrhosis of liver with ascites, unspecified hepatic cirrhosis type (HCC), Pre-transplant evaluation for liver transplant, End stage renal disease (HCC), S/P arteriovenous (AV) graft placement, Dependence on renal dialysis (HCC), Stage 5 chronic kidney disease (HCC), Encounter for pre- transplant evaluation for kidney transplant, Anemia in end-stage renal disease (HCC) * IR ANGIO AV SHUNT IMAGING(Performed 01/16/2023) Performed for End stage renal disease (HCC), Encounter for extracorporeal dialysis (HCC) * CT PELVIS WO CONTRAST(Performed 01/15/2023) Performed for Pre-transplant evaluation for liver transplant, Cirrhosis of liver with ascites, unspecified hepatic cirrhosis type (HCC), Dependence on renal dialysis (HCC), Stage 5 chronic kidney disease (HCC), Encounter for pre- transplant evaluation for kidney transplant, MPGN (membranoproliferative glomerulonephritides), Atrial flutter, unspecified type (HCC), Hyponatremia, SHIRA (acute kidney injury) (HCC), ESRD on dialysis (HCC), Peritonitis (HCC) * NM MYOCARD PERF REST STRESS(Performed 01/15/2023) Performed for Pre-transplant evaluation for liver transplant, Cirrhosis of liver with ascites, unspecified hepatic cirrhosis type (HCC), Dependence on renal dialysis (HCC), Stage 5 chronic kidney disease (HCC), Encounter for pre- transplant evaluation for kidney transplant, MPGN (membranoproliferative glomerulonephritides), Atrial flutter, unspecified type (HCC), Hyponatremia, SHIRA (acute kidney injury) (HCC), ESRD on dialysis (HCC), Peritonitis (HCC) * STRESS TEST(Performed 01/15/2023) Performed for Pre-transplant evaluation for liver transplant, Cirrhosis of liver with ascites, unspecified hepatic cirrhosis type (HCC), Dependence on renal dialysis (HCC), Stage 5 chronic kidney disease (HCC), Encounter for pre- transplant evaluation for kidney transplant, MPGN (membranoproliferative glomerulonephritides), Atrial flutter, unspecified type (HCC), Hyponatremia, SHIRA (acute kidney injury) (HCC), ESRD on dialysis (HCC), Peritonitis (HCC) * CARDIAC EKG ORDER(Performed 12/27/2022) * MRI ABDOMEN WWO CONTRAST(Performed 12/26/2022) Performed for Decompensated hepatic cirrhosis (HCC), Cirrhosis of liver with ascites, unspecified hepatic cirrhosis type (HCC), MPGN (membranoproliferative glomerulonephritides), Stage 5 chronic kidney disease (HCC), Anemia in end-stage renal disease (HCC), Pre-transplant evaluation for liver transplant, ESRD on dialysis (HCC), Seizures (HCC), Atrial flutter, unspecified type (HCC) * XR PANOREX(Performed 12/26/2022) Performed for Decompensated hepatic cirrhosis (HCC), Cirrhosis of liver with ascites, unspecified hepatic cirrhosis type (HCC), MPGN (membranoproliferative glomerulonephritides), Stage 5 chronic kidney disease (HCC), Anemia in end-stage renal disease (HCC), Pre-transplant evaluation for liver transplant, ESRD on dialysis (HCC), Seizures (HCC), Atrial flutter, unspecified type (HCC) * XR CHEST 2VW(Performed 12/26/2022) Performed for Decompensated hepatic cirrhosis (HCC), Cirrhosis of liver with ascites, unspecified hepatic cirrhosis type (HCC), MPGN (membranoproliferative glomerulonephritides), Stage 5 chronic kidney disease (HCC), Anemia in end-stage renal disease (HCC), Pre-transplant evaluation for liver transplant, ESRD on dialysis (HCC), Seizures (HCC), Atrial flutter, unspecified type (HCC) * DEXA BONE DENSITY AXIAL SKELETON(Performed 12/26/2022) Performed for Decompensated hepatic cirrhosis (HCC), Cirrhosis of liver with ascites, unspecified hepatic cirrhosis type (HCC), MPGN (membranoproliferative glomerulonephritides), Stage 5 chronic kidney disease (HCC), Anemia in end-stage renal disease (HCC), Pre-transplant evaluation for liver transplant, ESRD on dialysis (HCC), Seizures (HCC), Atrial flutter, unspecified type (HCC) * ECHO STRESS DOBUTAMINE COLOR FLOW AND DOPP W CONT(Performed 12/26/2022) Performed for Cirrhosis of liver with ascites, unspecified hepatic cirrhosis type (HCC), Pre-transplant evaluation for liver transplant, Dependence on renal dialysis (HCC), Stage 5 chronic kidney disease (HCC), Decompensated hepatic cirrhosis (HCC), Encounter for pre-transplant evaluation for kidney transplant * HLA ANTIBODY SCREEN LUM CLASS 2 SAB(Performed 12/07/2022) Performed for Decompensated hepatic cirrhosis (HCC), Cirrhosis of liver with ascites, unspecified hepatic cirrhosis type (HCC), MPGN (membranoproliferative glomerulonephritides), Stage 5 chronic kidney disease (HCC), Anemia in end-stage renal disease (HCC), Pre-transplant evaluation for liver transplant, ESRD on dialysis (HCC), Seizures (HCC), Atrial flutter, unspecified type (HCC) * HLA ANTIBODY SCREEN LUM CLASS 1 SAB(Performed 12/07/2022) Performed for Decompensated hepatic cirrhosis (HCC), Cirrhosis of liver with ascites, unspecified hepatic cirrhosis type (HCC), MPGN (membranoproliferative glomerulonephritides), Stage 5 chronic kidney disease (HCC), Anemia in end-stage renal disease (HCC), Pre-transplant evaluation for liver transplant, ESRD on dialysis (HCC), Seizures (HCC), Atrial flutter, unspecified type (HCC) * HLA TYPING DNA LOW RESOLUTION DR,DQ(Performed 12/07/2022) Performed for Decompensated hepatic cirrhosis (HCC), Cirrhosis of liver with ascites, unspecified hepatic cirrhosis type (HCC), MPGN (membranoproliferative glomerulonephritides), Stage 5 chronic kidney disease (HCC), Anemia in end-stage renal disease (HCC), Pre-transplant evaluation for liver transplant, ESRD on dialysis (HCC), Seizures (HCC), Atrial flutter, unspecified type (HCC) * HLA TYPING DNA LOW RESOLUTION A,B,C(Performed 12/07/2022) Performed for Decompensated hepatic cirrhosis (HCC), Cirrhosis of liver with ascites, unspecified hepatic cirrhosis type (HCC), MPGN (membranoproliferative glomerulonephritides), Stage 5 chronic kidney disease (HCC), Anemia in end-stage renal disease (HCC), Pre-transplant evaluation for liver transplant, ESRD on dialysis (HCC), Seizures (HCC), Atrial flutter, unspecified type (HCC) * TYPE + SCREEN PANEL(Performed 12/07/2022) Performed for Decompensated hepatic cirrhosis (HCC), Cirrhosis of liver with ascites, unspecified hepatic cirrhosis type (HCC), MPGN (membranoproliferative glomerulonephritides), Stage 5 chronic kidney disease (HCC), Anemia in end-stage renal disease (HCC), Pre-transplant evaluation for liver transplant, ESRD on dialysis (HCC), Seizures (HCC), Atrial flutter, unspecified type (HCC) * BLOOD TYPE ABO+ RH PANEL(Performed 12/07/2022) Performed for Decompensated hepatic cirrhosis (HCC), Cirrhosis of liver with ascites, unspecified hepatic cirrhosis type (HCC), MPGN (membranoproliferative glomerulonephritides), Stage 5 chronic kidney disease (HCC), Anemia in end-stage renal disease (HCC), Pre-transplant evaluation for liver transplant, ESRD on dialysis (HCC), Seizures (HCC), Atrial flutter, unspecified type (HCC) * CYTOPLASMIC PATTERN(Performed 12/07/2022) Performed for Decompensated hepatic cirrhosis (HCC), Cirrhosis of liver with ascites, unspecified hepatic cirrhosis type (HCC), MPGN (membranoproliferative glomerulonephritides), Stage 5 chronic kidney disease (HCC), Anemia in end-stage renal disease (HCC), Pre-transplant evaluation for liver transplant, ESRD on dialysis (HCC), Seizures (HCC), Atrial flutter, unspecified type (HCC) * VELIA BLOOD SINGLE PATTERN(Performed 12/07/2022) Performed for Decompensated hepatic cirrhosis (HCC), Cirrhosis of liver with ascites, unspecified hepatic cirrhosis type (HCC), MPGN (membranoproliferative glomerulonephritides), Stage 5 chronic kidney disease (HCC), Anemia in end-stage renal disease (HCC), Pre-transplant evaluation for liver transplant, ESRD on dialysis (HCC), Seizures (HCC), Atrial flutter, unspecified type (HCC) * VELIA HEP-2 IGG BY IFA(Performed 12/07/2022) Performed for Decompensated hepatic cirrhosis (HCC), Cirrhosis of liver with ascites, unspecified hepatic cirrhosis type (HCC), MPGN (membranoproliferative glomerulonephritides), Stage 5 chronic kidney disease (HCC), Anemia in end-stage renal disease (HCC), Pre-transplant evaluation for liver transplant, ESRD on dialysis (HCC), Seizures (HCC), Atrial flutter, unspecified type (HCC) * SMOOTH MUSCLE ANTIBODY W REFLEX TITER(Performed 12/07/2022) Performed for Decompensated hepatic cirrhosis (HCC), Cirrhosis of liver with ascites, unspecified hepatic cirrhosis type (HCC), MPGN (membranoproliferative glomerulonephritides), Stage 5 chronic kidney disease (HCC), Anemia in end-stage renal disease (HCC), Pre-transplant evaluation for liver transplant, ESRD on dialysis (HCC), Seizures (HCC), Atrial flutter, unspecified type (HCC) * OXALATE BLOOD(Performed 12/07/2022) Performed for Decompensated hepatic cirrhosis (HCC), Cirrhosis of liver with ascites, unspecified hepatic cirrhosis type (HCC), MPGN (membranoproliferative glomerulonephritides), Stage 5 chronic kidney disease (HCC), Anemia in end-stage renal disease (HCC), Pre-transplant evaluation for liver transplant, ESRD on dialysis (HCC), Seizures (HCC), Atrial flutter, unspecified type (HCC) * PTH INTACT W/O CALCIUM(Performed 12/07/2022) Performed for Decompensated hepatic cirrhosis (HCC), Cirrhosis of liver with ascites, unspecified hepatic cirrhosis type (HCC), MPGN (membranoproliferative glomerulonephritides), Stage 5 chronic kidney disease (HCC), Anemia in end-stage renal disease (HCC), Pre-transplant evaluation for liver transplant, ESRD on dialysis (HCC), Seizures (HCC), Atrial flutter, unspecified type (HCC) * VITAMIN D 25-HYDROXY(Performed 12/07/2022) Performed for Decompensated hepatic cirrhosis (HCC), Cirrhosis of liver with ascites, unspecified hepatic cirrhosis type (HCC), MPGN (membranoproliferative glomerulonephritides), Stage 5 chronic kidney disease (HCC), Anemia in end-stage renal disease (HCC), Pre-transplant evaluation for liver transplant, ESRD on dialysis (HCC), Seizures (HCC), Atrial flutter, unspecified type (HCC) * URIC ACID BLOOD(Performed 12/07/2022) Performed for Decompensated hepatic cirrhosis (HCC), Cirrhosis of liver with ascites, unspecified hepatic cirrhosis type (HCC), MPGN (membranoproliferative glomerulonephritides), Stage 5 chronic kidney disease (HCC), Anemia in end-stage renal disease (HCC), Pre-transplant evaluation for liver transplant, ESRD on dialysis (HCC), Seizures (HCC), Atrial flutter, unspecified type (HCC) * STRONGYLOIDES ANTIBODY IGG(Performed 12/07/2022) Performed for Decompensated hepatic cirrhosis (HCC), Cirrhosis of liver with ascites, unspecified hepatic cirrhosis type (HCC), MPGN (membranoproliferative glomerulonephritides), Stage 5 chronic kidney disease (HCC), Anemia in end-stage renal disease (HCC), Pre-transplant evaluation for liver transplant, ESRD on dialysis (HCC), Seizures (HCC), Atrial flutter, unspecified type (HCC) * TOXOPLASMA GONDII ANTIBODY IGG(Performed 12/07/2022) Performed for Decompensated hepatic cirrhosis (HCC), Cirrhosis of liver with ascites, unspecified hepatic cirrhosis type (HCC), MPGN (membranoproliferative glomerulonephritides), Stage 5 chronic kidney disease (HCC), Anemia in end-stage renal disease (HCC), Pre-transplant evaluation for liver transplant, ESRD on dialysis (HCC), Seizures (HCC), Atrial flutter, unspecified type (HCC) * G6PD QUANTITATIVE(Performed 12/07/2022) Performed for Decompensated hepatic cirrhosis (HCC), Cirrhosis of liver with ascites, unspecified hepatic cirrhosis type (HCC), MPGN (membranoproliferative glomerulonephritides), Stage 5 chronic kidney disease (HCC), Anemia in end-stage renal disease (HCC), Pre-transplant evaluation for liver transplant, ESRD on dialysis (HCC), Seizures (HCC), Atrial flutter, unspecified type (HCC) * MITOCHONDRIAL ANTIBODY SCREEN(Performed 12/07/2022) Performed for Decompensated hepatic cirrhosis (HCC), Cirrhosis of liver with ascites, unspecified hepatic cirrhosis type (HCC), MPGN (membranoproliferative glomerulonephritides), Stage 5 chronic kidney disease (HCC), Anemia in end-stage renal disease (HCC), Pre-transplant evaluation for liver transplant, ESRD on dialysis (HCC), Seizures (HCC), Atrial flutter, unspecified type (HCC) * VELIA BLOOD SCREEN W/REFLEX TITER(Performed 12/07/2022) Performed for Decompensated hepatic cirrhosis (HCC), Cirrhosis of liver with ascites, unspecified hepatic cirrhosis type (HCC), MPGN (membranoproliferative glomerulonephritides), Stage 5 chronic kidney disease (HCC), Anemia in end-stage renal disease (HCC), Pre-transplant evaluation for liver transplant, ESRD on dialysis (HCC), Seizures (HCC), Atrial flutter, unspecified type (HCC) * CERULOPLASMIN(Performed 12/07/2022) Performed for Decompensated hepatic cirrhosis (HCC), Cirrhosis of liver with ascites, unspecified hepatic cirrhosis type (HCC), MPGN (membranoproliferative glomerulonephritides), Stage 5 chronic kidney disease (HCC), Anemia in end-stage renal disease (HCC), Pre-transplant evaluation for liver transplant, ESRD on dialysis (HCC), Seizures (HCC), Atrial flutter, unspecified type (HCC) * PROSTATE SPECIFIC ANTIGEN SCREEN(Performed 12/07/2022) Performed for Decompensated hepatic cirrhosis (HCC), Cirrhosis of liver with ascites, unspecified hepatic cirrhosis type (HCC), MPGN (membranoproliferative glomerulonephritides), Stage 5 chronic kidney disease (HCC), Anemia in end-stage renal disease (HCC), Pre-transplant evaluation for liver transplant, ESRD on dialysis (HCC), Seizures (HCC), Atrial flutter, unspecified type (HCC) * QUANTIFERON-TB GOLD PLUS 4-TUBE(Performed 12/07/2022) Performed for Decompensated hepatic cirrhosis (HCC), Cirrhosis of liver with ascites, unspecified hepatic cirrhosis type (HCC), MPGN (membranoproliferative glomerulonephritides), Stage 5 chronic kidney disease (HCC), Anemia in end-stage renal disease (HCC), Pre-transplant evaluation for liver transplant, ESRD on dialysis (HCC), Seizures (HCC), Atrial flutter, unspecified type (HCC) * VARICELLA ZOSTER ANTIBODY IGG(Performed 12/07/2022) Performed for Decompensated hepatic cirrhosis (HCC), Cirrhosis of liver with ascites, unspecified hepatic cirrhosis type (HCC), MPGN (membranoproliferative glomerulonephritides), Stage 5 chronic kidney disease (HCC), Anemia in end-stage renal disease (HCC), Pre-transplant evaluation for liver transplant, ESRD on dialysis (HCC), Seizures (HCC), Atrial flutter, unspecified type (HCC) * RUBELLA ANTIBODY IGG TITER(Performed 12/07/2022) Performed for Decompensated hepatic cirrhosis (HCC), Cirrhosis of liver with ascites, unspecified hepatic cirrhosis type (HCC), MPGN (membranoproliferative glomerulonephritides), Stage 5 chronic kidney disease (HCC), Anemia in end-stage renal disease (HCC), Pre-transplant evaluation for liver transplant, ESRD on dialysis (HCC), Seizures (HCC), Atrial flutter, unspecified type (HCC) * MUMPS ANTIBODY IGG(Performed 12/07/2022) Performed for Decompensated hepatic cirrhosis (HCC), Cirrhosis of liver with ascites, unspecified hepatic cirrhosis type (HCC), MPGN (membranoproliferative glomerulonephritides), Stage 5 chronic kidney disease (HCC), Anemia in end-stage renal disease (HCC), Pre-transplant evaluation for liver transplant, ESRD on dialysis (HCC), Seizures (HCC), Atrial flutter, unspecified type (HCC) * RUBEOLA ANTIBODY IGG(Performed 12/07/2022) Performed for Decompensated hepatic cirrhosis (HCC), Cirrhosis of liver with ascites, unspecified hepatic cirrhosis type (HCC), MPGN (membranoproliferative glomerulonephritides), Stage 5 chronic kidney disease (HCC), Anemia in end-stage renal disease (HCC), Pre-transplant evaluation for liver transplant, ESRD on dialysis (HCC), Seizures (HCC), Atrial flutter, unspecified type (HCC) * [id number] BLOOD PHENOTYPING PANEL(Performed 12/07/2022) Performed for Decompensated hepatic cirrhosis (HCC), Cirrhosis of liver with ascites, unspecified hepatic cirrhosis type (HCC), MPGN (membranoproliferative glomerulonephritides), Stage 5 chronic kidney disease (HCC), Anemia in end-stage renal disease (HCC), Pre-transplant evaluation for liver transplant, ESRD on dialysis (HCC), Seizures (HCC), Atrial flutter, unspecified type (HCC) * NICOTINE + METABOLITES BLOOD(Performed 12/07/2022) Performed for Decompensated hepatic cirrhosis (HCC), Cirrhosis of liver with ascites, unspecified hepatic cirrhosis type (HCC), MPGN (membranoproliferative glomerulonephritides), Stage 5 chronic kidney disease (HCC), Anemia in end-stage renal disease (HCC), Pre-transplant evaluation for liver transplant, ESRD on dialysis (HCC), Seizures (HCC), Atrial flutter, unspecified type (HCC) * SYPHILIS ANTIBODY CASCADING REFLEX(Performed 12/07/2022) Performed for Decompensated hepatic cirrhosis (HCC), Cirrhosis of liver with ascites, unspecified hepatic cirrhosis type (HCC), MPGN (membranoproliferative glomerulonephritides), Stage 5 chronic kidney disease (HCC), Anemia in end-stage renal disease (HCC), Pre-transplant evaluation for liver transplant, ESRD on dialysis (HCC), Seizures (HCC), Atrial flutter, unspecified type (HCC) * HEMOGLOBIN A1C(Performed 12/07/2022) Performed for Decompensated hepatic cirrhosis (HCC), Cirrhosis of liver with ascites, unspecified hepatic cirrhosis type (HCC), MPGN (membranoproliferative glomerulonephritides), Stage 5 chronic kidney disease (HCC), Anemia in end-stage renal disease (HCC), Pre-transplant evaluation for liver transplant, ESRD on dialysis (HCC), Seizures (HCC), Atrial flutter, unspecified type (HCC) * KATIE-TRINIDAD VIRUS ANTIBODY TO VCA IGG(Performed 12/07/2022) Performed for Decompensated hepatic cirrhosis (HCC), Cirrhosis of liver with ascites, unspecified hepatic cirrhosis type (HCC), MPGN (membranoproliferative glomerulonephritides), Stage 5 chronic kidney disease (HCC), Anemia in end-stage renal disease (HCC), Pre-transplant evaluation for liver transplant, ESRD on dialysis (HCC), Seizures (HCC), Atrial flutter, unspecified type (HCC) * CYTOMEGALOVIRUS ANTIBODY IGG BLOOD(Performed 12/07/2022) Performed for Decompensated hepatic cirrhosis (HCC), Cirrhosis of liver with ascites, unspecified hepatic cirrhosis type (HCC), MPGN (membranoproliferative glomerulonephritides), Stage 5 chronic kidney disease (HCC), Anemia in end-stage renal disease (HCC), Pre-transplant evaluation for liver transplant, ESRD on dialysis (HCC), Seizures (HCC), Atrial flutter, unspecified type (HCC) * HIV-1 HIV-2 ANTIBODY + HIV P24 AG PANEL(Performed 12/07/2022) Performed for Decompensated hepatic cirrhosis (HCC), Cirrhosis of liver with ascites, unspecified hepatic cirrhosis type (HCC), MPGN (membranoproliferative glomerulonephritides), Stage 5 chronic kidney disease (HCC), Anemia in end-stage renal disease (HCC), Pre-transplant evaluation for liver transplant, ESRD on dialysis (HCC), Seizures (HCC), Atrial flutter, unspecified type (HCC) * HEPATITIS C ANTIBODY(Performed 12/07/2022) Performed for Decompensated hepatic cirrhosis (HCC), Cirrhosis of liver with ascites, unspecified hepatic cirrhosis type (HCC), MPGN (membranoproliferative glomerulonephritides), Stage 5 chronic kidney disease (HCC), Anemia in end-stage renal disease (HCC), Pre-transplant evaluation for liver transplant, ESRD on dialysis (HCC), Seizures (HCC), Atrial flutter, unspecified type (HCC) * HEPATITIS B SURFACE ANTIBODY(Performed 12/07/2022) Performed for Decompensated hepatic cirrhosis (HCC), Cirrhosis of liver with ascites, unspecified hepatic cirrhosis type (HCC), MPGN (membranoproliferative glomerulonephritides), Stage 5 chronic kidney disease (HCC), Anemia in end-stage renal disease (HCC), Pre-transplant evaluation for liver transplant, ESRD on dialysis (HCC), Seizures (HCC), Atrial flutter, unspecified type (HCC) * HEPATITIS B CORE ANTIBODY TOTAL(Performed 12/07/2022) Performed for Decompensated hepatic cirrhosis (HCC), Cirrhosis of liver with ascites, unspecified hepatic cirrhosis type (HCC), MPGN (membranoproliferative glomerulonephritides), Stage 5 chronic kidney disease (HCC), Anemia in end-stage renal disease (HCC), Pre-transplant evaluation for liver transplant, ESRD on dialysis (HCC), Seizures (HCC), Atrial flutter, unspecified type (HCC) * HEPATITIS B SURFACE ANTIGEN W RFLX CONFIRMATION(Performed 12/07/2022) Performed for Decompensated hepatic cirrhosis (HCC), Cirrhosis of liver with ascites, unspecified hepatic cirrhosis type (HCC), MPGN (membranoproliferative glomerulonephritides), Stage 5 chronic kidney disease (HCC), Anemia in end-stage renal disease (HCC), Pre-transplant evaluation for liver transplant, ESRD on dialysis (HCC), Seizures (HCC), Atrial flutter, unspecified type (HCC) * LIPID PROFILE(Performed 12/07/2022) Performed for Decompensated hepatic cirrhosis (HCC), Cirrhosis of liver with ascites, unspecified hepatic cirrhosis type (HCC), MPGN (membranoproliferative glomerulonephritides), Stage 5 chronic kidney disease (HCC), Anemia in end-stage renal disease (HCC), Pre-transplant evaluation for liver transplant, ESRD on dialysis (HCC), Seizures (HCC), Atrial flutter, unspecified type (HCC) * PHOSPHORUS BLOOD(Performed 12/07/2022) Performed for Decompensated hepatic cirrhosis (HCC), Cirrhosis of liver with ascites, unspecified hepatic cirrhosis type (HCC), MPGN (membranoproliferative glomerulonephritides), Stage 5 chronic kidney disease (HCC), Anemia in end-stage renal disease (HCC), Pre-transplant evaluation for liver transplant, ESRD on dialysis (HCC), Seizures (HCC), Atrial flutter, unspecified type (HCC) * IRON BLOOD(Performed 12/07/2022) Performed for Decompensated hepatic cirrhosis (HCC), Cirrhosis of liver with ascites, unspecified hepatic cirrhosis type (HCC), MPGN (membranoproliferative glomerulonephritides), Stage 5 chronic kidney disease (HCC), Anemia in end-stage renal disease (HCC), Pre-transplant evaluation for liver transplant, ESRD on dialysis (HCC), Seizures (HCC), Atrial flutter, unspecified type (HCC) * FERRITIN(Performed 12/07/2022) Performed for Decompensated hepatic cirrhosis (HCC), Cirrhosis of liver with ascites, unspecified hepatic cirrhosis type (HCC), MPGN (membranoproliferative glomerulonephritides), Stage 5 chronic kidney disease (HCC), Anemia in end-stage renal disease (HCC), Pre-transplant evaluation for liver transplant, ESRD on dialysis (HCC), Seizures (HCC), Atrial flutter, unspecified type (HCC) * TRANSFERRIN(Performed 12/07/2022) Performed for Decompensated hepatic cirrhosis (HCC), Cirrhosis of liver with ascites, unspecified hepatic cirrhosis type (HCC), MPGN (membranoproliferative glomerulonephritides), Stage 5 chronic kidney disease (HCC), Anemia in end-stage renal disease (HCC), Pre-transplant evaluation for liver transplant, ESRD on dialysis (HCC), Seizures (HCC), Atrial flutter, unspecified type (HCC) * COMPREHENSIVE METABOLIC PANEL(Performed 12/07/2022) Performed for Decompensated hepatic cirrhosis (HCC), Cirrhosis of liver with ascites, unspecified hepatic cirrhosis type (HCC), MPGN (membranoproliferative glomerulonephritides), Stage 5 chronic kidney disease (HCC), Anemia in end-stage renal disease (HCC), Pre-transplant evaluation for liver transplant, ESRD on dialysis (HCC), Seizures (HCC), Atrial flutter, unspecified type (HCC) * CBC W AUTO DIFFERENTIAL(Performed 12/07/2022) Performed for Decompensated hepatic cirrhosis (HCC), Cirrhosis of liver with ascites, unspecified hepatic cirrhosis type (HCC), MPGN (membranoproliferative glomerulonephritides), Stage 5 chronic kidney disease (HCC), Anemia in end-stage renal disease (HCC), Pre-transplant evaluation for liver transplant, ESRD on dialysis (HCC), Seizures (HCC), Atrial flutter, unspecified type (HCC) * TSH REFLEX FREE T4(Performed 12/07/2022) Performed for Decompensated hepatic cirrhosis (HCC), Cirrhosis of liver with ascites, unspecified hepatic cirrhosis type (HCC), MPGN (membranoproliferative glomerulonephritides), Stage 5 chronic kidney disease (HCC), Anemia in end-stage renal disease (HCC), Pre-transplant evaluation for liver transplant, ESRD on dialysis (HCC), Seizures (HCC), Atrial flutter, unspecified type (HCC) * OH LARYNGOSCOPY,FLEX FIBER,DIAGNOSTIC(Performed 11/29/2022) Performed for Pre-transplant evaluation for liver transplant * PHOSPHATIDYLETHANOL (PETH)(Performed 10/03/2022) Performed for Alcoholic cirrhosis of liver with ascites (HCC), ESRD (end stage renal disease) (HCC) * PT-INR [facility](Performed 10/03/2022) Performed for Alcoholic cirrhosis of liver with ascites (HCC), ESRD (end stage renal disease) (HCC) * HEPATIC FUNCTION PANEL(Performed 10/03/2022) Performed for Alcoholic cirrhosis of liver with ascites (HCC), ESRD (end stage renal disease) (HCC) * BASIC METABOLIC PANEL (CALCIUM TOTAL)(Performed 10/03/2022) Performed for Alcoholic cirrhosis of liver with ascites (HCC), ESRD (end stage renal disease) (HCC) * CBC W/O DIFFERENTIAL(Performed 10/03/2022) Performed for Alcoholic cirrhosis of liver with ascites (HCC), ESRD (end stage renal disease) (HCC) * ALPHA FETOPROTEIN BLOOD TUMOR MARKER(Performed 10/03/2022) Performed for Alcoholic cirrhosis of liver with ascites (HCC), ESRD (end stage renal disease) (HCC) * IR ANGIO AV SHUNT IMAGING(Performed 08/11/2022) Performed for End stage renal disease (HCC) * IR CENTRAL LINE REMOVAL(Performed 04/11/2022) Performed for End stage renal disease ([facility]) * CBC W/O DIFFERENTIAL(Performed 02/22/2022) Performed for ESRD (end stage renal disease) ([facility]) * PHOSPHORUS BLOOD(Performed 02/22/2022) Performed for ESRD (end stage renal disease) ([facility]) * MAGNESIUM BLOOD(Performed 02/22/2022) Performed for ESRD (end stage renal disease) ([facility]) * BASIC METABOLIC PANEL (CALCIUM TOTAL)(Performed 02/22/2022) Performed for ESRD (end stage renal disease) ([facility]) * ENDOTRACHEAL TUBE NOTE(Performed 02/21/2022) * CREATION ARTERIOVENOUS (AV) FISTULA WITH/WITHOUT GRAFT(Performed 02/21/2022) Performed for End stage renal disease on dialysis ([facility]) * TRANSFUSE PLATELETS IN ML(S)(Performed 02/21/2022) * PREPARE PLATELET PHERESIS UNIT(S)(Performed 02/21/2022) Performed for Pancytopenia ([facility]) * TYPE + SCREEN PANEL(Performed 02/21/2022) Performed for Pre-op evaluation * POTASSIUM WHOLE BLD(Performed 02/21/2022) Performed for Pre-op evaluation * PT-INR [facility](Performed 02/21/2022) Performed for Pre-op evaluation * CBC W AUTO DIFFERENTIAL(Performed 02/21/2022) Performed for Pre-op evaluation * TYPE + SCREEN PANEL(Performed 02/07/2022) Performed for Pre-op evaluation * COMPREHENSIVE METABOLIC PANEL(Performed 02/07/2022) Performed for Pre-op evaluation * CBC W/O DIFFERENTIAL(Performed 02/07/2022) Performed for Pre-op evaluation * CARDIAC EKG ORDER(Performed 08/13/2021) * ALCOHOL ETHYL BLOOD(Performed 08/09/2021) * MAGNESIUM BLOOD(Performed 08/09/2021) * PHOSPHORUS BLOOD(Performed 08/09/2021) * TROPONIN I(Performed 08/09/2021) * COMPREHENSIVE METABOLIC PANEL(Performed 08/09/2021) * CBC W AUTO DIFFERENTIAL(Performed 08/09/2021) * CT HEAD WO CONTRAST(Performed 08/09/2021) Performed for Altered mental status, unspecified altered mental status type, Stage 5 chronic kidneydisease on chronic dialysis ([facility]) * EKG 12-LEAD(Performed 08/09/2021) Performed for Altered mental status, unspecified altered mental status type, Stage 5 chronic kidneydisease on chronic dialysis ([facility]) * XR CHEST 2VW(Performed 08/09/2021) Performed for Altered mental status, unspecified altered mental status type, Stage 5 chronic kidneydisease on chronic dialysis ([facility]) * CARDIAC EKG ORDER(Performed 07/21/2021) * PHOSPHORUS BLOOD(Performed 07/20/2021) * MAGNESIUM BLOOD(Performed 07/20/2021) * BASIC METABOLIC PANEL (CALCIUM TOTAL)(Performed 07/20/2021) * CBC W/O DIFFERENTIAL(Performed 07/20/2021) * GLUCOSE - POINT OF CARE(Performed 07/20/2021) * GLUCOSE - POINT OF CARE(Performed 07/20/2021) * MRI BRAIN WO CONTRAST(Performed 07/19/2021) Performed for Weakness, Hemineglect, ESRD (end stage renal disease) ([facility]), Facial droop * TROPONIN I(Performed 07/19/2021) * TROPONIN I(Performed 07/19/2021) * XR ABDOMEN KUB PORTABLE(Performed 07/19/2021) Performed for Weakness, Hemineglect, ESRD (end stage renal disease) ([facility]), Facial droop * SARS-COV-2 (COVID-19)+INFLU A+B PCR RAPID(Performed 07/19/2021) * EKG 12-LEAD(Performed 07/19/2021) Performed for Weakness * CT ANGIO BRAIN NECK STROKE(Performed 07/19/2021) Performed for Weakness * TYPE + SCREEN PANEL(Performed 07/19/2021) * ALCOHOL ETHYL BLOOD(Performed 07/19/2021) * PTT [facility](Performed 07/19/2021) * TROPONIN I(Performed 07/19/2021) * PT-INR [facility](Performed 07/19/2021) * COMPREHENSIVE METABOLIC PANEL(Performed 07/19/2021) * CBC W AUTO DIFFERENTIAL(Performed 07/19/2021) * CREATININE - POCT INTERFACED(Performed 07/19/2021) * INR WHOLE BLOOD - POINT OF CARE (IP) STROKE(Performed 07/19/2021) * CT BRAIN STROKE(Performed 07/19/2021) Performed for Weakness * IR CENTRAL LINE REPAIR(Performed 12/17/2020) Performed for End stage renal disease (HCC) * SARS-COV-2 (COVID-19) IN HOUSE(Performed 09/20/2020) Performed for ESRD (end stage renal disease) (HCC) * ETHYL GLUCURONIDE URINE QUAL W/REFLEX(Performed 04/19/2020) Performed for Pre-transplant evaluation for liver transplant, Pre-transplant evaluation for chronickidney disease, History of alcohol abuse, Alcoholic cirrhosis of liver with ascites (HCC) * URINE DRUG SCREEN IMMUNOASSAY(Performed 04/19/2020) Performed for Pre-transplant evaluation for liver transplant, Pre-transplant evaluation for chronickidney disease, History of alcohol abuse, Alcoholic cirrhosis of liver with ascites (HCC) * PTT [facility](Performed 04/19/2020) Performed for ESRD (end stage renal disease) (HCC) * ALPHA FETOPROTEIN BLOOD TUMOR MARKER(Performed 04/19/2020) Performed for Alcoholic cirrhosis of liver with ascites (HCC) * CBC W AUTO DIFFERENTIAL(Performed 04/19/2020) Performed for ESRD (end stage renal disease) (HCC) * NICOTINE + METABOLITES BLOOD(Performed 04/19/2020) Performed for Pre-transplant evaluation for liver transplant, Pre-transplant evaluation for chronickidney disease, History of alcohol abuse, Alcoholic cirrhosis of liver with ascites (HCC) * ALCOHOL ETHYL BLOOD(Performed 04/19/2020) Performed for Pre-transplant evaluation for liver transplant, Pre-transplant evaluation for chronickidney disease, History of alcohol abuse, Alcoholic cirrhosis of liver with ascites (HCC) * PT-INR [facility](Performed 04/19/2020) Performed for Pre-transplant evaluation for liver transplant, Pre-transplant evaluation for chronickidney disease, History of alcohol abuse, Alcoholic cirrhosis of liver with ascites (HCC) * COMPREHENSIVE METABOLIC PANEL(Performed 04/19/2020) Performed for Pre-transplant evaluation for liver transplant, Pre-transplant evaluation for chronickidney disease, History of alcohol abuse, Alcoholic cirrhosis of liver with ascites (HCC) * PATHOLOGY TISSUE(Performed 01/12/2020) Performed for Esophageal varices without bleeding, unspecified esophageal varices type (HCC) * OH COLONOSCOPY, DIAGNOSTIC(Performed 01/12/2020) Performed for Esophageal varices without bleeding, unspecified esophageal varices type (HCC) * OH ED EGD FLEX TRANSORAL DX(Performed 01/12/2020) Performed for Esophageal varices without bleeding, unspecified esophageal varices type (HCC) * ENDOSCOPY, COLON, DIAGNOSTIC(Performed 01/12/2020) * EGD(Performed 01/12/2020) * LARGE VOLUME PARACENTESIS(Performed 01/12/2020) Performed for Other ascites, Portal hypertension (HCC), Cirrhosis of liver with ascites, unspecified hepatic cirrhosis type (HCC), Pre-transplant evaluation for liver transplant * PARACENTESIS ABDOMEN (PERCUTANEOUS)(Performed 01/12/2020) Performed for Other ascites * DIFFERENTIAL MANUAL FLUID(Performed 01/12/2020) Performed for Other ascites, Portal hypertension (HCC), Cirrhosis of liver with ascites, unspecified hepatic cirrhosis type (HCC), Pre-transplant evaluation for liver transplant * PT-INR [facility](Performed 01/12/2020) Performed for Other ascites, Portal hypertension (HCC), Cirrhosis of liver with ascites, unspecified hepatic cirrhosis type (HCC), Pre-transplant evaluation for liver transplant * CBC W AUTO DIFFERENTIAL(Performed 01/12/2020) Performed for Other ascites, Portal hypertension (HCC), Cirrhosis of liver with ascites, unspecified hepatic cirrhosis type (HCC), Pre-transplant evaluation for liver transplant * COMPREHENSIVE METABOLIC PANEL(Performed 01/12/2020) Performed for Other ascites, Portal hypertension (HCC), Cirrhosis of liver with ascites, unspecified hepatic cirrhosis type (HCC), Pre-transplant evaluation for liver transplant * CELL COUNT W DIFFERENTIAL FLUID(Performed 01/12/2020) Performed for Other ascites, Portal hypertension (HCC), Cirrhosis of liver with ascites, unspecified hepatic cirrhosis type (HCC), Pre-transplant evaluation for liver transplant * CULTURE FLUID+GRAM STAIN(Performed 01/12/2020) Performed for Other ascites, Portal hypertension (HCC), Cirrhosis of liver with ascites, unspecified hepatic cirrhosis type (HCC), Pre-transplant evaluation for liver transplant * CARDIAC PROCEDURE ORDER(Performed 12/09/2019) * CARDIAC EKG ORDER(Performed 12/03/2019) * CCL CARDIAC CATH LEFT HEART ONLY(Performed 11/28/2019) Performed for Pre-transplant evaluation for liver transplant, Alcoholic cirrhosis of liver with ascites (HCC), Abnormal stress test * TYPE + SCREEN PANEL(Performed 11/28/2019) Performed for Pre-transplant evaluation for liver transplant * PT-INR [facility](Performed 11/28/2019) Performed for Pre-transplant evaluation for liver transplant * CBC W AUTO DIFFERENTIAL(Performed 11/28/2019) Performed for Pre-transplant evaluation for liver transplant * BASIC METABOLIC PANEL (CALCIUM TOTAL)(Performed 11/28/2019) Performed for Pre-transplant evaluation for liver transplant * CARDIAC EKG ORDER(Performed 10/22/2019) * CARDIAC EKG ORDER(Performed 10/22/2019) * CARDIAC EKG ORDER(Performed 10/14/2019) * MRI ABDOMEN WWO CONTRAST(Performed 10/08/2019) Performed for Pre-transplant evaluation for liver transplant, Pre-transplant evaluation for kidney transplant, Membranoproliferative glomerulonephritis, Dialysis patient (HCC), H/O ETOH abuse * DEXA BONE DENSITY AXIAL SKELETON(Performed 10/08/2019) Performed for Pre-transplant evaluation for liver transplant, Pre-transplant evaluation for kidney transplant, Membranoproliferative glomerulonephritis, Dialysis patient (HCC), H/O ETOH abuse * ECHO STRESS W DOBUTAMINE(Performed 10/08/2019) Performed for Pre-transplant evaluation for liver transplant, Pre-transplant evaluation for kidney transplant, Membranoproliferative glomerulonephritis, Dialysis patient (HCC), H/O ETOH abuse * ECHO STRESS COLOR FLOW AND DOPPLER(Performed 10/08/2019) Performed for Pre-transplant evaluation for liver transplant, Pre-transplant evaluation for kidney transplant, Membranoproliferative glomerulonephritis, Dialysis patient (HCC), H/O ETOH abuse * BLOOD TYPE ABO+ RH PANEL(Performed 10/08/2019) Performed for Pre-transplant evaluation for liver transplant, Pre-transplant evaluation for kidney transplant, Membranoproliferative glomerulonephritis, Dialysis patient (HCC), H/O ETOH abuse * CREATININE URINE RANDOM(Performed 10/08/2019) Performed for Pre-transplant evaluation for liver transplant, Pre-transplant evaluation for kidney transplant, Membranoproliferative glomerulonephritis, Dialysis patient (HCC), H/O ETOH abuse * PROTEIN URINE RANDOM QUANTITATIVE(Performed 10/08/2019) Performed for Pre-transplant evaluation for liver transplant, Pre-transplant evaluation for kidney transplant, Membranoproliferative glomerulonephritis, Dialysis patient (HCC), H/O ETOH abuse * URINE DRUG SCREEN IMMUNOASSAY(Performed 10/08/2019) Performed for Pre-transplant evaluation for liver transplant, Pre-transplant evaluation for kidney transplant, Membranoproliferative glomerulonephritis, Dialysis patient (HCC), H/O ETOH abuse * URINALYSIS W/MICROSCOPIC NO CULTURE(Performed 10/08/2019) Performed for Pre-transplant evaluation for liver transplant, Pre-transplant evaluation for kidney transplant, Membranoproliferative glomerulonephritis, Dialysis patient (HCC), H/O ETOH abuse * HLA XM SEROLOGIC AUTO(Performed 10/08/2019) Performed for Pre-transplant evaluation for liver transplant, Pre-transplant evaluation for kidney transplant, Membranoproliferative glomerulonephritis, Dialysis patient (HCC), H/O ETOH abuse * HLA ANTIBODY SCREEN LUM CLASS 2 ID(Performed 10/08/2019) Performed for Pre-transplant evaluation for liver transplant, Pre-transplant evaluation for kidney transplant, Membranoproliferative glomerulonephritis, Dialysis patient (HCC), H/O ETOH abuse * HLA ANTIBODY SCREEN LUM CLASS 1 ID(Performed 10/08/2019) Performed for Pre-transplant evaluation for liver transplant, Pre-transplant evaluation for kidney transplant, Membranoproliferative glomerulonephritis, Dialysis patient (HCC), H/O ETOH abuse * HLA TYPING DNA LOW RESOLUTION DR,DQ(Performed 10/08/2019) Performed for Pre-transplant evaluation for liver transplant, Pre-transplant evaluation for kidney transplant, Membranoproliferative glomerulonephritis, Dialysis patient (HCC), H/O ETOH abuse * HLA TYPING DNA LOW RESOLUTION A,B,C(Performed 10/08/2019) Performed for Pre-transplant evaluation for liver transplant, Pre-transplant evaluation for kidney transplant, Membranoproliferative glomerulonephritis, Dialysis patient (HCC), H/O ETOH abuse * TYPE + SCREEN PANEL(Performed 10/08/2019) Performed for Pre-transplant evaluation for liver transplant, Pre-transplant evaluation for kidney transplant, Membranoproliferative glomerulonephritis, Dialysis patient (HCC), H/O ETOH abuse * PT-INR [facility](Performed 10/08/2019) Performed for Pre-transplant evaluation for liver transplant * QUANTIFERON-TB GOLD PLUS 4-TUBE(Performed 10/08/2019) Performed for Pre-transplant evaluation for liver transplant * PTH INTACT W/O CALCIUM(Performed 10/08/2019) Performed for Pre-transplant evaluation for liver transplant * VITAMIN D 25-HYDROXY(Performed 10/08/2019) Performed for Pre-transplant evaluation for liver transplant, Pre-transplant evaluation for kidney transplant, Membranoproliferative glomerulonephritis, Dialysis patient (HCC), H/O ETOH abuse * URIC ACID BLOOD(Performed 10/08/2019) Performed for Pre-transplant evaluation for liver transplant, Pre-transplant evaluation for kidney transplant, Membranoproliferative glomerulonephritis, Dialysis patient (HCC), H/O ETOH abuse * TOXOPLASMA GONDII ANTIBODY IGG(Performed 10/08/2019) Performed for Pre-transplant evaluation for liver transplant, Pre-transplant evaluation for kidney transplant, Membranoproliferative glomerulonephritis, Dialysis patient (HCC), H/O ETOH abuse * STRONGYLOIDES ANTIBODY IGG(Performed 10/08/2019) Performed for Pre-transplant evaluation for liver transplant, Pre-transplant evaluation for kidney transplant, Membranoproliferative glomerulonephritis, Dialysis patient (HCC), H/O ETOH abuse * MITOCHONDRIAL ANTIBODY SCREEN(Performed 10/08/2019) Performed for Pre-transplant evaluation for liver transplant, Pre-transplant evaluation for kidney transplant, Membranoproliferative glomerulonephritis, Dialysis patient (HCC), H/O ETOH abuse * SMOOTH MUSCLE ANTIBODY(Performed 10/08/2019) Performed for Pre-transplant evaluation for liver transplant, Pre-transplant evaluation for kidney transplant, Membranoproliferative glomerulonephritis, Dialysis patient (HCC), H/O ETOH abuse * CERULOPLASMIN(Performed 10/08/2019) Performed for Pre-transplant evaluation for liver transplant, Pre-transplant evaluation for kidney transplant, Membranoproliferative glomerulonephritis, Dialysis patient (HCC), H/O ETOH abuse * PROSTATE SPECIFIC ANTIGEN SCREEN(Performed 10/08/2019) Performed for Pre-transplant evaluation for liver transplant, Pre-transplant evaluation for kidney transplant, Membranoproliferative glomerulonephritis, Dialysis patient (HCC), H/O ETOH abuse * VARICELLA ZOSTER ANTIBODY IGG(Performed 10/08/2019) Performed for Pre-transplant evaluation for liver transplant, Pre-transplant evaluation for kidney transplant, Membranoproliferative glomerulonephritis, Dialysis patient (HCC), H/O ETOH abuse * RUBELLA ANTIBODY IGG(Performed 10/08/2019) Performed for Pre-transplant evaluation for liver transplant, Pre-transplant evaluation for kidney transplant, Membranoproliferative glomerulonephritis, Dialysis patient (HCC), H/O ETOH abuse * MUMPS ANTIBODY IGG(Performed 10/08/2019) Performed for Pre-transplant evaluation for liver transplant, Pre-transplant evaluation for kidney transplant, Membranoproliferative glomerulonephritis, Dialysis patient (HCC), H/O ETOH abuse * RUBEOLA ANTIBODY IGG(Performed 10/08/2019) Performed for Pre-transplant evaluation for liver transplant, Pre-transplant evaluation for kidney transplant, Membranoproliferative glomerulonephritis, Dialysis patient (HCC), H/O ETOH abuse * [id number] BLOOD PHENOTYPING PANEL(Performed 10/08/2019) Performed for Pre-transplant evaluation for liver transplant, Pre-transplant evaluation for kidney transplant, Membranoproliferative glomerulonephritis, Dialysis patient (HCC), H/O ETOH abuse * NICOTINE + METABOLITES BLOOD(Performed 10/08/2019) Performed for Pre-transplant evaluation for liver transplant, Pre-transplant evaluation for kidney transplant, Membranoproliferative glomerulonephritis, Dialysis patient (HCC), H/O ETOH abuse * ALCOHOL ETHYL BLOOD(Performed 10/08/2019) Performed for Pre-transplant evaluation for liver transplant, Pre-transplant evaluation for kidney transplant, Membranoproliferative glomerulonephritis, Dialysis patient (HCC), H/O ETOH abuse * SYPHILIS ANTIBODY CASCADING REFLEX(Performed 10/08/2019) Performed for Pre-transplant evaluation for liver transplant, Pre-transplant evaluation for kidney transplant, Membranoproliferative glomerulonephritis, Dialysis patient (HCC), H/O ETOH abuse * HEMOGLOBIN A1C(Performed 10/08/2019) Performed for Pre-transplant evaluation for liver transplant, Pre-transplant evaluation for kidney transplant, Membranoproliferative glomerulonephritis, Dialysis patient (HCC), H/O ETOH abuse * ALPHA FETOPROTEIN BLOOD TUMOR MARKER(Performed 10/08/2019) Performed for Pre-transplant evaluation for liver transplant, Pre-transplant evaluation for kidney transplant, Membranoproliferative glomerulonephritis, Dialysis patient (HCC), H/O ETOH abuse * LIPID PROFILE(Performed 10/08/2019) Performed for Pre-transplant evaluation for liver transplant, Pre-transplant evaluation for kidney transplant, Membranoproliferative glomerulonephritis, Dialysis patient (HCC), H/O ETOH abuse * PHOSPHORUS BLOOD(Performed 10/08/2019) Performed for Pre-transplant evaluation for liver transplant, Pre-transplant evaluation for kidney transplant, Membranoproliferative glomerulonephritis, Dialysis patient (HCC), H/O ETOH abuse * IRON BLOOD(Performed 10/08/2019) Performed for Pre-transplant evaluation for liver transplant, Pre-transplant evaluation for kidney transplant, Membranoproliferative glomerulonephritis, Dialysis patient (HCC), H/O ETOH abuse * FERRITIN(Performed 10/08/2019) Performed for Pre-transplant evaluation for liver transplant, Pre-transplant evaluation for kidney transplant, Membranoproliferative glomerulonephritis, Dialysis patient (HCC), H/O ETOH abuse * TRANSFERRIN(Performed 10/08/2019) Performed for Pre-transplant evaluation for liver transplant, Pre-transplant evaluation for kidney transplant, Membranoproliferative glomerulonephritis, Dialysis patient (HCC), H/O ETOH abuse * COMPREHENSIVE METABOLIC PANEL(Performed 10/08/2019) Performed for Pre-transplant evaluation for liver transplant, Pre-transplant evaluation for kidney transplant, Membranoproliferative glomerulonephritis, Dialysis patient (HCC), H/O ETOH abuse * CBC W AUTO DIFFERENTIAL(Performed 10/08/2019) Performed for Pre-transplant evaluation for liver transplant, Pre-transplant evaluation for kidney transplant, Membranoproliferative glomerulonephritis, Dialysis patient (HCC), H/O ETOH abuse * US RETROPERITONEAL COMPLETE(Performed 10/08/2019) Performed for Pre-transplant evaluation for liver transplant, Pre-transplant evaluation for kidney transplant, Membranoproliferative glomerulonephritis, Dialysis patient (HCC), H/O ETOH abuse * XR CHEST 2VW(Performed 10/08/2019) Performed for Pre-transplant evaluation for liver transplant, Pre-transplant evaluation for kidney transplant, Membranoproliferative glomerulonephritis, Dialysis patient (HCC), H/O ETOH abuse * XR PANOREX(Performed 10/08/2019) Performed for Pre-transplant evaluation for liver transplant, Pre-transplant evaluation for kidney transplant, Membranoproliferative glomerulonephritis, Dialysis patient (HCC), H/O ETOH abuse * LARGE VOLUME PARACENTESIS(Performed 09/29/2019) Performed for Other ascites, Portal hypertension (HCC), Cirrhosis of liver with ascites, unspecified hepatic cirrhosis type (HCC) * PARACENTESIS ABDOMEN (PERCUTANEOUS)(Performed 09/29/2019) Performed for Other ascites * DIFFERENTIAL MANUAL FLUID(Performed 09/29/2019) Performed for Other ascites, Portal hypertension (HCC), Cirrhosis of liver with ascites, unspecified hepatic cirrhosis type (HCC) * PT-INR [facility](Performed 09/29/2019) Performed for Other ascites, Portal hypertension (HCC), Cirrhosis of liver with ascites, unspecified hepatic cirrhosis type (HCC) * CBC W AUTO DIFFERENTIAL(Performed 09/29/2019) Performed for Other ascites, Portal hypertension (HCC), Cirrhosis of liver with ascites, unspecified hepatic cirrhosis type (HCC) * COMPREHENSIVE METABOLIC PANEL(Performed 09/29/2019) Performed for Other ascites, Portal hypertension (HCC), Cirrhosis of liver with ascites, unspecified hepatic cirrhosis type (HCC) * CELL COUNT W DIFFERENTIAL FLUID(Performed 09/29/2019) Performed for Other ascites, Portal hypertension (HCC), Cirrhosis of liver with ascites, unspecified hepatic cirrhosis type (HCC) * CULTURE FLUID+GRAM STAIN(Performed 09/29/2019) Performed for Other ascites, Portal hypertension (HCC), Cirrhosis of liver with ascites, unspecified hepatic cirrhosis type (HCC) * CARDIAC EKG ORDER(Performed 09/25/2019) * CARDIAC EKG ORDER(Performed 09/25/2019) * CARDIAC EKG ORDER(Performed 09/12/2019) * CARDIAC EKG ORDER(Performed 09/12/2019) * HEPATITIS B SURFACE ANTIGEN W RFLX CONFIRMATION(Performed 09/10/2019) Performed for SHIRA (acute kidney injury) (HCC) * CARDIAC EKG ORDER(Performed 09/10/2019) * EKG 12-LEAD(Performed 09/10/2019) Performed for Typical atrial flutter (HCC) * TSH(Performed 09/10/2019) * PHOSPHORUS BLOOD(Performed 09/10/2019) Performed for ESRD (end stage renal disease) (HCC), Hepatic cirrhosis, unspecified hepatic cirrhosis type, unspecified whether ascites present (HCC) * MAGNESIUM BLOOD(Performed 09/10/2019) Performed for ESRD (end stage renal disease) (HCC), Hepatic cirrhosis, unspecified hepatic cirrhosis type, unspecified whether ascites present (HCC) * CBC W/O DIFFERENTIAL(Performed 09/10/2019) Performed for Hepatic cirrhosis, unspecified hepatic cirrhosis type, unspecified whether ascites present (HCC) * BASIC METABOLIC PANEL (CALCIUM TOTAL)(Performed 09/10/2019) * BLOOD GASES ARTERIAL(Performed 09/09/2019) * EKG 12-LEAD(Performed 09/09/2019) Performed for Heart rate fast * PHOSPHORUS BLOOD(Performed 09/09/2019) * COMPREHENSIVE METABOLIC PANEL(Performed 09/09/2019) * PTT [facility](Performed 09/09/2019) * PT-INR [facility](Performed 09/09/2019) * TYPE + SCREEN PANEL(Performed 09/09/2019) * CBC W AUTO DIFFERENTIAL(Performed 09/09/2019) * URINALYSIS REFLEX TO MICROSCOPIC NO CULTURE(Performed 09/09/2019) * EKG 12-LEAD(Performed 09/09/2019) Performed for Heart rate fast * IMAGING/RADIOLOGY/XRAY RESULTS ORDER(Performed 09/05/2019) * LARGE VOLUME PARACENTESIS(Performed 09/04/2019) Performed for Other ascites, Portal hypertension (HCC), Cirrhosis of liver with ascites, unspecified hepatic cirrhosis type (HCC), Hyponatremia * PARACENTESIS ABDOMEN (PERCUTANEOUS)(Performed 09/04/2019) Performed for S/P abdominal paracentesis * DIFFERENTIAL MANUAL FLUID(Performed 09/04/2019) Performed for Other ascites, Portal hypertension (HCC), Cirrhosis of liver with ascites, unspecified hepatic cirrhosis type (HCC), Hyponatremia * PT-INR [facility](Performed 09/04/2019) Performed for Other ascites, Portal hypertension (HCC), Cirrhosis of liver with ascites, unspecified hepatic cirrhosis type (HCC), Hyponatremia * CBC W AUTO DIFFERENTIAL(Performed 09/04/2019) Performed for Other ascites, Portal hypertension (HCC), Cirrhosis of liver with ascites, unspecified hepatic cirrhosis type (HCC), Hyponatremia * COMPREHENSIVE METABOLIC PANEL(Performed 09/04/2019) Performed for Other ascites, Portal hypertension (HCC), Cirrhosis of liver with ascites, unspecified hepatic cirrhosis type (HCC), Hyponatremia * CELL COUNT W DIFFERENTIAL FLUID(Performed 09/04/2019) Performed for Other ascites, Portal hypertension (HCC), Cirrhosis of liver with ascites, unspecified hepatic cirrhosis type (HCC), Hyponatremia * CULTURE FLUID+GRAM STAIN(Performed 09/04/2019) Performed for Other ascites, Portal hypertension (HCC), Cirrhosis of liver with ascites, unspecified hepatic cirrhosis type (HCC), Hyponatremia * LARGE VOLUME PARACENTESIS(Performed 08/13/2019) Performed for Decompensated hepatic cirrhosis (HCC), Other ascites * DIFFERENTIAL MANUAL FLUID(Performed 08/13/2019) Performed for Decompensated hepatic cirrhosis (HCC), Other ascites * CELL COUNT W DIFFERENTIAL FLUID(Performed 08/13/2019) Performed for Decompensated hepatic cirrhosis (HCC), Other ascites * CULTURE FLUID+GRAM STAIN(Performed 08/13/2019) Performed for Decompensated hepatic cirrhosis (HCC), Other ascites * CBC W AUTO DIFFERENTIAL(Performed 08/13/2019) Performed for Decompensated hepatic cirrhosis (HCC), Other ascites * PT-INR [facility](Performed 08/13/2019) Performed for Decompensated hepatic cirrhosis (HCC), Other ascites * COMPREHENSIVE METABOLIC PANEL(Performed 08/13/2019) Performed for Decompensated hepatic cirrhosis (HCC), Other ascites * PARACENTESIS ABDOMEN (PERCUTANEOUS)(Performed 08/13/2019) Performed for Other ascites * PT-INR [facility](Performed 07/01/2019) Performed for Pre-op evaluation, End stage renal disease (HCC), Decompensated hepatic cirrhosis (HCC), Dyspnea, unspecified type, SHIRA (acute kidney injury) (HCC), Other ascites, Portal hypertension (HCC), Hyponatremia, MPGN (membranoproliferative glomerulonephritides), Chronic renal failure, stage 4 (severe) (HCC), Pancytopenia (HCC), Cirrhosis of liver with ascites, unspecified hepatic cirrhosistype (HCC), Peritonitis (HCC), Dependence on renal dialysis (HCC) * CBC W AUTO DIFFERENTIAL(Performed 07/01/2019) Performed for End stage renal disease (HCC) * POTASSIUM WHOLE BLD(Performed 07/01/2019) Performed for Pre-op evaluation * LARGE VOLUME PARACENTESIS(Performed 06/30/2019) Performed for Decompensated hepatic cirrhosis (HCC), Cirrhosis of liver with ascites, unspecified hepatic cirrhosis type (HCC) * COMPREHENSIVE METABOLIC PANEL(Performed 06/30/2019) Performed for Decompensated hepatic cirrhosis (HCC), Cirrhosis of liver with ascites, unspecified hepatic cirrhosis type (HCC) * DIFFERENTIAL MANUAL FLUID(Performed 06/30/2019) Performed for Decompensated hepatic cirrhosis (HCC), Cirrhosis of liver with ascites, unspecified hepatic cirrhosis type (HCC) * CELL COUNT W DIFFERENTIAL FLUID(Performed 06/30/2019) Performed for Decompensated hepatic cirrhosis (HCC), Cirrhosis of liver with ascites, unspecified hepatic cirrhosis type (HCC) * CULTURE FLUID+GRAM STAIN(Performed 06/30/2019) Performed for Decompensated hepatic cirrhosis (HCC), Cirrhosis of liver with ascites, unspecified hepatic cirrhosis type (HCC) * PARACENTESIS ABDOMEN (PERCUTANEOUS)(Performed 06/30/2019) Performed for Other ascites * TYPE + SCREEN PANEL(Performed 06/19/2019) Performed for Pre-op evaluation * CBC W/O DIFFERENTIAL(Performed 06/19/2019) Performed for Pre-op evaluation * LARGE VOLUME PARACENTESIS(Performed 06/05/2019) Performed for Other ascites, Portal hypertension (HCC), Cirrhosis of liver with ascites, unspecified hepatic cirrhosis type (HCC), End stage renal disease (HCC) * PARACENTESIS ABDOMEN (PERCUTANEOUS)(Performed 06/05/2019) Performed for Other ascites * DIFFERENTIAL MANUAL FLUID(Performed 06/05/2019) Performed for Other ascites, Portal hypertension (HCC), Cirrhosis of liver with ascites, unspecified hepatic cirrhosis type (HCC), End stage renal disease (HCC) * PT-INR [facility](Performed 06/05/2019) Performed for Other ascites, Portal hypertension (HCC), Cirrhosis of liver with ascites, unspecified hepatic cirrhosis type (HCC), End stage renal disease (HCC) * CBC W AUTO DIFFERENTIAL(Performed 06/05/2019) Performed for Other ascites, Portal hypertension (HCC), Cirrhosis of liver with ascites, unspecified hepatic cirrhosis type (HCC), End stage renal disease (HCC) * COMPREHENSIVE METABOLIC PANEL(Performed 06/05/2019) Performed for Other ascites, Portal hypertension (HCC), Cirrhosis of liver with ascites, unspecified hepatic cirrhosis type (HCC), End stage renal disease (HCC) * CELL COUNT W DIFFERENTIAL FLUID(Performed 06/05/2019) Performed for Other ascites, Portal hypertension (HCC), Cirrhosis of liver with ascites, unspecified hepatic cirrhosis type (HCC), End stage renal disease (HCC) * CULTURE FLUID+GRAM STAIN(Performed 06/05/2019) Performed for Other ascites, Portal hypertension (HCC), Cirrhosis of liver with ascites, unspecified hepatic cirrhosis type (HCC), End stage renal disease (HCC) * LARGE VOLUME PARACENTESIS(Performed 05/23/2019) Performed for Cirrhosis of liver with ascites, unspecified hepatic cirrhosis type (HCC), Other ascites, Portal hypertension (HCC) * CULTURE FLUID+GRAM STAIN(Performed 05/23/2019) Performed for Cirrhosis of liver with ascites, unspecified hepatic cirrhosis type (HCC), Other ascites, Portal hypertension (HCC) * DIFFERENTIAL MANUAL FLUID(Performed 05/23/2019) Performed for Cirrhosis of liver with ascites, unspecified hepatic cirrhosis type (HCC), Other ascites, Portal hypertension (HCC) * CELL COUNT W DIFFERENTIAL FLUID(Performed 05/23/2019) Performed for Cirrhosis of liver with ascites, unspecified hepatic cirrhosis type (HCC), Other ascites, Portal hypertension (HCC) * PARACENTESIS ABDOMEN (PERCUTANEOUS)(Performed 05/23/2019) Performed for Other ascites * LARGE VOLUME PARACENTESIS(Performed 05/12/2019) Performed for Cirrhosis of liver with ascites, unspecified hepatic cirrhosis type (HCC) * PT-INR [facility](Performed 05/12/2019) Performed for Cirrhosis of liver with ascites, unspecified hepatic cirrhosis type (HCC) * COMPREHENSIVE METABOLIC PANEL(Performed 05/12/2019) Performed for Cirrhosis of liver with ascites, unspecified hepatic cirrhosis type (HCC) * CBC W AUTO DIFFERENTIAL(Performed 05/12/2019) Performed for Cirrhosis of liver with ascites, unspecified hepatic cirrhosis type (HCC) * PARACENTESIS ABDOMEN (PERCUTANEOUS)(Performed 05/12/2019) Performed for Other ascites * DIFFERENTIAL MANUAL FLUID(Performed 05/12/2019) Performed for Cirrhosis of liver with ascites, unspecified hepatic cirrhosis type (HCC) * CELL COUNT W DIFFERENTIAL FLUID(Performed 05/12/2019) Performed for Cirrhosis of liver with ascites, unspecified hepatic cirrhosis type (HCC) * CULTURE FLUID+GRAM STAIN(Performed 05/12/2019) Performed for Cirrhosis of liver with ascites, unspecified hepatic cirrhosis type (HCC) * VAS BILAT MAPPING FOR HEMODIALYSIS(Performed 05/09/2019) Performed for ESRD (end stage renal disease) (HCC) * LARGE VOLUME PARACENTESIS(Performed 04/30/2019) Performed for Decompensated hepatic cirrhosis (HCC), Cirrhosis of liver with ascites, unspecified hepatic cirrhosis type (HCC) * DIFFERENTIAL MANUAL FLUID(Performed 04/30/2019) Performed for Decompensated hepatic cirrhosis (HCC), Cirrhosis of liver with ascites, unspecified hepatic cirrhosis type (HCC) * CELL COUNT W DIFFERENTIAL FLUID(Performed 04/30/2019) Performed for Decompensated hepatic cirrhosis (HCC), Cirrhosis of liver with ascites, unspecified hepatic cirrhosis type (HCC) * CULTURE FLUID+GRAM STAIN(Performed 04/30/2019) Performed for Decompensated hepatic cirrhosis (HCC), Cirrhosis of liver with ascites, unspecified hepatic cirrhosis type (HCC) * PARACENTESIS ABDOMEN (PERCUTANEOUS)(Performed 04/30/2019) Performed for Other ascites * URINALYSIS W/MICROSCOPIC NO CULTURE(Performed 04/18/2019) * LACTIC ACID BLOOD(Performed 04/18/2019) * CBC W AUTO DIFFERENTIAL(Performed 04/18/2019) * PT-INR [facility](Performed 04/18/2019) * PHOSPHORUS BLOOD(Performed 04/18/2019) * MAGNESIUM BLOOD(Performed 04/18/2019) * COMPREHENSIVE METABOLIC PANEL(Performed 04/18/2019) * [facility] EGD FLEX TRANSORAL DX(Performed 04/14/2019) Performed for Esophageal varices without bleeding, unspecified esophageal varices type (HCC) * LARGE VOLUME PARACENTESIS(Performed 04/14/2019) Performed for Other ascites, Chronic renal failure, unspecified CKD stage, Alcoholic cirrhosis of liver with ascites (HCC), Anemia in chronic kidney disease, unspecified CKD stage * DIFFERENTIAL MANUAL FLUID(Performed 04/14/2019) Performed for Other ascites, Chronic renal failure, unspecified CKD stage, Alcoholic cirrhosis of liver with ascites (HCC), Anemia in chronic kidney disease, unspecified CKD stage * CELL COUNT W DIFFERENTIAL FLUID(Performed 04/14/2019) Performed for Other ascites, Chronic renal failure, unspecified CKD stage, Alcoholic cirrhosis of liver with ascites (HCC), Anemia in chronic kidney disease, unspecified CKD stage * CULTURE FLUID+GRAM STAIN(Performed 04/14/2019) Performed for Other ascites, Chronic renal failure, unspecified CKD stage, Alcoholic cirrhosis of liver with ascites (HCC), Anemia in chronic kidney disease, unspecified CKD stage * PARACENTESIS ABDOMEN (PERCUTANEOUS)(Performed 04/14/2019) Performed for Other ascites * TYPE + SCREEN PANEL(Performed 04/14/2019) Performed for Other ascites, Chronic renal failure, unspecified CKD stage, Alcoholic cirrhosis of liver with ascites (HCC), Anemia in chronic kidney disease, unspecified CKD stage * PT-INR [facility](Performed 04/14/2019) Performed for Other ascites, Chronic renal failure, unspecified CKD stage, Alcoholic cirrhosis of liver with ascites (HCC), Anemia in chronic kidney disease, unspecified CKD stage * COMPREHENSIVE METABOLIC PANEL(Performed 04/14/2019) Performed for Other ascites, Chronic renal failure, unspecified CKD stage, Alcoholic cirrhosis of liver with ascites (HCC), Anemia in chronic kidney disease, unspecified CKD stage * CBC W AUTO DIFFERENTIAL(Performed 04/14/2019) Performed for Other ascites, Chronic renal failure, unspecified CKD stage, Alcoholic cirrhosis of liver with ascites (HCC), Anemia in chronic kidney disease, unspecified CKD stage * CARDIAC EKG ORDER(Performed 04/10/2019) * APHERESIS/TRANSFUSION ORDER(Performed 04/06/2019) * LARGE VOLUME PARACENTESIS(Performed 04/03/2019) Performed for Other ascites, Portal hypertension (HCC), Hyponatremia, MPGN (membranoproliferative glomerulonephritides), Alcoholic cirrhosis of liver with ascites (HCC) * CBC W AUTO DIFFERENTIAL(Performed 04/03/2019) Performed for Chronic renal failure, stage 4 (severe) (HCC), Pancytopenia (HCC) * PARACENTESIS ABDOMEN (PERCUTANEOUS)(Performed 04/03/2019) Performed for Other ascites * PREPARE RBC LEUKOREDUCED UNIT(Performed 04/03/2019) * PREPARE RBC LEUKOREDUCED UNIT(Performed 04/03/2019) * TYPE + SCREEN PANEL(Performed 04/03/2019) Performed for Other ascites, Portal hypertension (HCC), Hyponatremia, MPGN (membranoproliferative glomerulonephritides), Alcoholic cirrhosis of liver with ascites (HCC) * DIFFERENTIAL MANUAL FLUID(Performed 04/03/2019) Performed for Other ascites, Portal hypertension (HCC), Hyponatremia, MPGN (membranoproliferative glomerulonephritides), Alcoholic cirrhosis of liver with ascites (HCC) * CELL COUNT W DIFFERENTIAL FLUID(Performed 04/03/2019) Performed for Other ascites, Portal hypertension (HCC), Hyponatremia, MPGN (membranoproliferative glomerulonephritides), Alcoholic cirrhosis of liver with ascites (HCC) * CULTURE FLUID+GRAM STAIN(Performed 04/03/2019) Performed for Other ascites, Portal hypertension (HCC), Hyponatremia, MPGN (membranoproliferative glomerulonephritides), Alcoholic cirrhosis of liver with ascites (HCC) * PT-INR [facility](Performed 04/03/2019) Performed for Other ascites, Portal hypertension (HCC), Hyponatremia, MPGN (membranoproliferative glomerulonephritides), Alcoholic cirrhosis of liver with ascites (HCC) * CBC W AUTO DIFFERENTIAL(Performed 04/03/2019) Performed for Other ascites, Portal hypertension (HCC), Hyponatremia, MPGN (membranoproliferative glomerulonephritides), Alcoholic cirrhosis of liver with ascites (HCC) * COMPREHENSIVE METABOLIC PANEL(Performed 04/03/2019) Performed for Other ascites, Portal hypertension (HCC), Hyponatremia, MPGN (membranoproliferative glomerulonephritides), Alcoholic cirrhosis of liver with ascites (HCC) * LARGE VOLUME PARACENTESIS(Performed 03/27/2019) Performed for Other ascites, Anemia, unspecified type, Portal hypertension (HCC), SHIRA (acute kidneyinjury) (HCC) * TYPE + SCREEN PANEL(Performed 03/27/2019) * DIFFERENTIAL MANUAL FLUID(Performed 03/27/2019) Performed for Other ascites, Anemia, unspecified type, Portal hypertension (HCC), SHIRA (acute kidneyinjury) (HCC) * CELL COUNT W DIFFERENTIAL FLUID(Performed 03/27/2019) Performed for Other ascites, Anemia, unspecified type, Portal hypertension (HCC), SHIRA (acute kidneyinjury) (HCC) * PARACENTESIS ABDOMEN (PERCUTANEOUS)(Performed 03/27/2019) Performed for Other ascites * PT-INR [facility](Performed 03/27/2019) Performed for Other ascites, Anemia, unspecified type, Portal hypertension (HCC), SHIRA (acute kidneyinjury) (HCC) * CBC W AUTO DIFFERENTIAL(Performed 03/27/2019) Performed for Other ascites, Anemia, unspecified type, Portal hypertension (HCC), SHIRA (acute kidneyinjury) (HCC) * COMPREHENSIVE METABOLIC PANEL(Performed 03/27/2019) Performed for Other ascites, Anemia, unspecified type, Portal hypertension (HCC), SHIRA (acute kidneyinjury) (HCC) * CULTURE FLUID+GRAM STAIN(Performed 03/27/2019) Performed for Other ascites, Anemia, unspecified type, Portal hypertension (HCC), SHIRA (acute kidneyinjury) (HCC) * PT-INR [facility](Performed 03/13/2019) * PHOSPHORUS BLOOD(Performed 03/13/2019) * MAGNESIUM BLOOD(Performed 03/13/2019) * COMPREHENSIVE METABOLIC PANEL(Performed 03/13/2019) * CBC W AUTO DIFFERENTIAL(Performed 03/13/2019) * HEPATITIS B SURFACE ANTIBODY QUANT(Performed 03/12/2019) * PT-INR [facility](Performed 03/12/2019) * PHOSPHORUS BLOOD(Performed 03/12/2019) * MAGNESIUM BLOOD(Performed 03/12/2019) * COMPREHENSIVE METABOLIC PANEL(Performed 03/12/2019) * CBC W AUTO DIFFERENTIAL(Performed 03/12/2019) * HEMODIALYSIS INPATIENT(Performed 03/11/2019) * PT-INR [facility](Performed 03/11/2019) * PHOSPHORUS BLOOD(Performed 03/11/2019) * MAGNESIUM BLOOD(Performed 03/11/2019) * COMPREHENSIVE METABOLIC PANEL(Performed 03/11/2019) * CBC W AUTO DIFFERENTIAL(Performed 03/11/2019) * PT EVAL AND TREAT(Performed 03/10/2019) * OT EVAL AND TREAT(Performed 03/10/2019) * HEPATITIS B SURFACE ANTIBODY QUANT(Performed 03/10/2019) Performed for Chronic renal failure, unspecified CKD stage * HEPATITIS SCREEN ACUTE(Performed 03/10/2019) Performed for Chronic renal failure, unspecified CKD stage * KATIE-TRINIDAD VIRUS AB TO EARLY AG IGG(Performed 03/10/2019) * CYTOMEGALOVIRUS AB IGG(Performed 03/10/2019) * FOLATE(Performed 03/10/2019) * VITAMIN B12(Performed 03/10/2019) * PT-INR [facility](Performed 03/10/2019) * PHOSPHORUS BLOOD(Performed 03/10/2019) * MAGNESIUM BLOOD(Performed 03/10/2019) * COMPREHENSIVE METABOLIC PANEL(Performed 03/10/2019) * CBC W AUTO DIFFERENTIAL(Performed 03/10/2019) * LAB MISC TEST(Performed 03/09/2019) * HEMODIALYSIS INPATIENT(Performed 03/09/2019) * HEMODIALYSIS INPATIENT(Performed 03/09/2019) * PT-INR [facility](Performed 03/09/2019) * PHOSPHORUS BLOOD(Performed 03/09/2019) * MAGNESIUM BLOOD(Performed 03/09/2019) * COMPREHENSIVE METABOLIC PANEL(Performed 03/09/2019) * CBC W AUTO DIFFERENTIAL(Performed 03/09/2019) * GLUCOSE - POINT OF CARE(Performed 03/09/2019) * URINALYSIS REFLEX TO MICROSCOPIC NO CULTURE(Performed 03/08/2019) * CULTURE URINE(Performed 03/08/2019) * CBC W AUTO DIFFERENTIAL(Performed 03/08/2019) * CULTURE BLOOD(Performed 03/08/2019) * CULTURE BLOOD(Performed 03/08/2019) * AMMONIA(Performed 03/08/2019) * HEMOGLOBIN A1C(Performed 03/08/2019) * PT-INR [facility](Performed 03/08/2019) * PHOSPHORUS BLOOD(Performed 03/08/2019) * MAGNESIUM BLOOD(Performed 03/08/2019) * COMPREHENSIVE METABOLIC PANEL(Performed 03/08/2019) * CBC W AUTO DIFFERENTIAL(Performed 03/08/2019) * CBC W AUTO DIFFERENTIAL(Performed 03/08/2019) * CBC W AUTO DIFFERENTIAL(Performed 03/07/2019) * HEMODIALYSIS INPATIENT(Performed 03/07/2019) * [place] ED EGD FLEX TRANSORAL DX(Performed 03/07/2019) Performed for Melena * EGD(Performed 03/07/2019) * CBC W AUTO DIFFERENTIAL(Performed 03/07/2019) * XR CHEST 1VW PORTABLE(Performed 03/07/2019) Performed for Chronic renal failure, stage 4 (severe) (HCC) * IR CENTRAL LINE INSERT TUNNEL(Performed 03/07/2019) Performed for Chronic kidney disease (CKD), stage V (HCC) * HEPATITIS B SURFACE ANTIGEN W RFLX CONFIRMATION(Performed 03/07/2019) * TRANSFUSE PLATELET PHERESIS UNIT(S)(Performed 03/07/2019) * HAPTOGLOBIN(Performed 03/07/2019) * LDH BLOOD(Performed 03/07/2019) * RETIC COUNT(Performed 03/07/2019) * PT-INR [facility](Performed 03/07/2019) * PHOSPHORUS BLOOD(Performed 03/07/2019) * MAGNESIUM BLOOD(Performed 03/07/2019) * COMPREHENSIVE METABOLIC PANEL(Performed 03/07/2019) * CBC W AUTO DIFFERENTIAL(Performed 03/07/2019) * TRANSFUSE RED BLOOD CELL LEUKOREDUCED UNIT(S)(Performed 03/07/2019) * CBC W AUTO DIFFERENTIAL(Performed 03/07/2019) * PT-INR [facility](Performed 03/06/2019) * PHOSPHORUS BLOOD(Performed 03/06/2019) * MAGNESIUM BLOOD(Performed 03/06/2019) * TRANSFUSE RED BLOOD CELL LEUKOREDUCED UNIT(S)(Performed 03/06/2019) * PTT [facility](Performed 03/06/2019) * PT-INR [facility](Performed 03/06/2019) * PHOSPHORUS BLOOD(Performed 03/06/2019) * MAGNESIUM BLOOD(Performed 03/06/2019) * COMPREHENSIVE METABOLIC PANEL(Performed 03/06/2019) * CBC W AUTO DIFFERENTIAL(Performed 03/06/2019) * TRANSFUSE PLATELET PHERESIS UNIT(S)(Performed 03/06/2019) * CBC W/O DIFFERENTIAL(Performed 03/06/2019) * TRANSFUSE PLATELET PHERESIS UNIT(S)(Performed 03/06/2019) * TRANSFUSE PLATELET PHERESIS UNIT(S)(Performed 03/06/2019) * HEMODIALYSIS INPATIENT(Performed 03/06/2019) * TRANSFUSE PLATELET PHERESIS UNIT(S)(Performed 03/06/2019) * PT-INR [facility](Performed 03/06/2019) * COMPREHENSIVE METABOLIC PANEL(Performed 03/06/2019) * CBC W AUTO DIFFERENTIAL(Performed 03/06/2019) * POTASSIUM URINE RANDOM(Performed 03/06/2019) * CREATININE URINE RANDOM(Performed 03/06/2019) * UREA NITROGEN URINE RANDOM(Performed 03/06/2019) * SODIUM URINE RANDOM(Performed 03/06/2019) * URINALYSIS NO MICROSCOPIC NO CULTURE(Performed 03/06/2019) * CARDIAC EKG ORDER(Performed 03/06/2019) * EKG 12-LEAD(Performed 03/06/2019) Performed for Chronic renal failure, unspecified CKD stage * XR CHEST 1VW PORTABLE(Performed 03/05/2019) Performed for Abdominal pain, generalized * EKG 12-LEAD(Performed 03/05/2019) Performed for Abdominal pain, generalized * PREPARE PLATELET PHERESIS UNIT(S)(Performed 03/05/2019) * PREPARE RBC LEUKOREDUCED UNIT(Performed 03/05/2019) * PREPARE RBC LEUKOREDUCED UNIT(Performed 03/05/2019) * PREPARE PLATELET PHERESIS UNIT(S)(Performed 03/05/2019) * TYPE + SCREEN PANEL(Performed 03/05/2019) * LACTIC ACID BLOOD(Performed 03/05/2019) * PTT [facility](Performed 03/05/2019) * COMPREHENSIVE METABOLIC PANEL(Performed 03/05/2019) * CBC W AUTO DIFFERENTIAL(Performed 03/05/2019) * PT-INR [facility](Performed 03/05/2019) * TROPONIN I(Performed 03/05/2019) * LARGE VOLUME PARACENTESIS(Performed 02/20/2019) Performed for Other ascites, Portal hypertension (HCC), Decompensated hepatic cirrhosis (HCC), MPGN(membranoproliferative glomerulonephritides) * DIFFERENTIAL MANUAL FLUID(Performed 02/20/2019) Performed for Other ascites, Portal hypertension (HCC), Decompensated hepatic cirrhosis (HCC), MPGN(membranoproliferative glomerulonephritides) * CELL COUNT W DIFFERENTIAL FLUID(Performed 02/20/2019) Performed for Other ascites, Portal hypertension (HCC), Decompensated hepatic cirrhosis (HCC), MPGN(membranoproliferative glomerulonephritides) * CULTURE FLUID+GRAM STAIN(Performed 02/20/2019) Performed for Other ascites, Portal hypertension (HCC), Decompensated hepatic cirrhosis (HCC), MPGN(membranoproliferative glomerulonephritides) * PARACENTESIS ABDOMEN (PERCUTANEOUS)(Performed 02/20/2019) Performed for Other ascites * APHERESIS/TRANSFUSION ORDER(Performed 02/11/2019) * CARDIAC EKG ORDER(Performed 02/10/2019) * CBC W/O DIFFERENTIAL(Performed 02/10/2019) * COMPREHENSIVE METABOLIC PANEL(Performed 02/10/2019) * CBC W/O DIFFERENTIAL(Performed 02/09/2019) * COMPREHENSIVE METABOLIC PANEL(Performed 02/09/2019) * CT ABDOMEN PELVIS WO CONTRAST(Performed 02/08/2019) Performed for Anemia, unspecified type * BASIC METABOLIC PANEL (CALCIUM TOTAL)(Performed 02/08/2019) * CBC W/O DIFFERENTIAL(Performed 02/08/2019) * CBC W/O DIFFERENTIAL(Performed 02/08/2019) * COMPREHENSIVE METABOLIC PANEL(Performed 02/08/2019) * BASIC METABOLIC PANEL (CALCIUM TOTAL)(Performed 02/07/2019) * TRANSFUSE RED BLOOD CELL LEUKOREDUCED UNIT(S)(Performed 02/07/2019) * CBC W/O DIFFERENTIAL(Performed 02/07/2019) * BASIC METABOLIC PANEL (CALCIUM TOTAL)(Performed 02/07/2019) * OSMOLALITY URINE(Performed 02/07/2019) * PROTEIN URINE RANDOM QUANTITATIVE(Performed 02/07/2019) * OSMOLALITY BLOOD(Performed 02/07/2019) * PREPARE RBC LEUKOREDUCED UNIT(Performed 02/07/2019) * PREPARE RBC LEUKOREDUCED UNIT(Performed 02/07/2019) * PREPARE RBC LEUKOREDUCED UNIT(Performed 02/07/2019) * TYPE + SCREEN PANEL(Performed 02/07/2019) * CBC W/O DIFFERENTIAL(Performed 02/07/2019) * COMPREHENSIVE METABOLIC PANEL(Performed 02/07/2019) * CREATININE URINE RANDOM(Performed 02/06/2019) * UREA NITROGEN URINE RANDOM(Performed 02/06/2019) * SODIUM URINE RANDOM(Performed 02/06/2019) * URINALYSIS REFLEX TO MICROSCOPIC NO CULTURE(Performed 02/06/2019) * MAGNESIUM BLOOD(Performed 02/06/2019) * BASIC METABOLIC PANEL (CALCIUM TOTAL)(Performed 02/06/2019) * PHOSPHORUS BLOOD(Performed 02/06/2019) * LARGE VOLUME PARACENTESIS(Performed 02/06/2019) Performed for Other ascites, Portal hypertension (HCC), Decompensated hepatic cirrhosis (HCC) * DIFFERENTIAL MANUAL FLUID(Performed 02/06/2019) Performed for Other ascites, Portal hypertension (HCC), Decompensated hepatic cirrhosis (HCC) * CELL COUNT W DIFFERENTIAL FLUID(Performed 02/06/2019) Performed for Other ascites, Portal hypertension (HCC), Decompensated hepatic cirrhosis (HCC) * CULTURE FLUID+GRAM STAIN(Performed 02/06/2019) Performed for Other ascites, Portal hypertension (HCC), Decompensated hepatic cirrhosis (HCC) * PARACENTESIS ABDOMEN (PERCUTANEOUS)(Performed 02/06/2019) Performed for Other ascites * PT-INR [facility](Performed 02/06/2019) Performed for Other ascites, Portal hypertension (HCC), Decompensated hepatic cirrhosis (HCC) * CBC W AUTO DIFFERENTIAL(Performed 02/06/2019) Performed for Other ascites, Portal hypertension (HCC), Decompensated hepatic cirrhosis (HCC) * COMPREHENSIVE METABOLIC PANEL(Performed 02/06/2019) Performed for Other ascites, Portal hypertension (HCC), Decompensated hepatic cirrhosis (HCC) * APHERESIS/TRANSFUSION ORDER(Performed 01/31/2019) * PT-INR [facility](Performed 01/29/2019) * PHOSPHORUS BLOOD(Performed 01/29/2019) * MAGNESIUM BLOOD(Performed 01/29/2019) * COMPREHENSIVE METABOLIC PANEL(Performed 01/29/2019) * DIFFERENTIAL MANUAL FLUID(Performed 01/28/2019) * CELL COUNT W DIFFERENTIAL FLUID(Performed 01/28/2019) * CULTURE FLUID+GRAM STAIN(Performed 01/28/2019) * CBC W AUTO DIFFERENTIAL(Performed 01/28/2019) Performed for Hematochezia * PT-INR [facility](Performed 01/27/2019) * PHOSPHORUS BLOOD(Performed 01/27/2019) * MAGNESIUM BLOOD(Performed 01/27/2019) * COMPREHENSIVE METABOLIC PANEL(Performed 01/27/2019) * SIGMOIDOSCOPY FLEXIBLE SCREENING(Performed 01/27/2019) Performed for Rectal bleeding * ESOPHAGOGASTRODUODENOSCOPY (EGD) DIAGNOSTIC(Performed 01/27/2019) Performed for Rectal bleeding * EGD(Performed 01/27/2019) * ENDOSCOPY, PROCTOSIGMOID(Performed 01/27/2019) * BILIRUBIN DIRECT(Performed 01/27/2019) * HAPTOGLOBIN(Performed 01/27/2019) * LDH BLOOD(Performed 01/27/2019) * CBC W AUTO DIFFERENTIAL(Performed 01/27/2019) Performed for Hematochezia * PT-INR [facility](Performed 01/26/2019) * PHOSPHORUS BLOOD(Performed 01/26/2019) * MAGNESIUM BLOOD(Performed 01/26/2019) * COMPREHENSIVE METABOLIC PANEL(Performed 01/26/2019) * DIFFERENTIAL MANUAL FLUID(Performed 01/26/2019) * CELL COUNT W DIFFERENTIAL FLUID(Performed 01/26/2019) * CULTURE FLUID+GRAM STAIN(Performed 01/26/2019) * HLA ANTIBODY SCREEN LUM CLASS 1 SAB(Performed 01/26/2019) * CBC W AUTO DIFFERENTIAL(Performed 01/26/2019) Performed for Hematochezia * PTH INTACT W/O CALCIUM(Performed 01/26/2019) * VITAMIN D 25-HYDROXY(Performed 01/26/2019) * TRANSFUSE PLATELET PHERESIS UNIT(S)(Performed 01/26/2019) * PT-INR [facility](Performed 01/26/2019) * PHOSPHORUS BLOOD(Performed 01/26/2019) * MAGNESIUM BLOOD(Performed 01/26/2019) * COMPREHENSIVE METABOLIC PANEL(Performed 01/26/2019) * CBC W AUTO DIFFERENTIAL(Performed 01/26/2019) Performed for Hematochezia * TRANSFUSE PLATELET PHERESIS UNIT(S)(Performed 01/25/2019) * CBC W AUTO DIFFERENTIAL(Performed 01/25/2019) Performed for Hematochezia * CBC W/O DIFFERENTIAL(Performed 01/25/2019) * US RETROPERITONEAL COMPLETE(Performed 01/25/2019) Performed for SHIRA (acute kidney injury) (HCC) * KAPPA/LAMBDA LITE CHAIN FREE URINE W RATIO(Performed 01/25/2019) * PROTEIN ELECTROPHORESIS URINE RANDOM(Performed 01/25/2019) * TRANSFUSE RED BLOOD CELL LEUKOREDUCED UNIT(S)(Performed 01/25/2019) * TRANSFUSE PLATELET PHERESIS UNIT(S)(Performed 01/25/2019) * LIAT STAINING PATTERNS REFLEXED(Performed 01/25/2019) * PT-INR [facility](Performed 01/25/2019) * MAGNESIUM BLOOD(Performed 01/25/2019) * PHOSPHORUS BLOOD(Performed 01/25/2019) * COMPREHENSIVE METABOLIC PANEL(Performed 01/25/2019) * COMPLEMENT C4(Performed 01/25/2019) * COMPLEMENT C3(Performed 01/25/2019) * VELIA BLOOD SCREEN W/REFLEX TITER(Performed 01/25/2019) * SYPHILIS ANTIBODY CASCADING REFLEX(Performed 01/25/2019) * HEPATITIS A ANTIBODY(Performed 01/25/2019) * HEPATITIS B SURFACE ANTIGEN W RFLX CONFIRMATION(Performed 01/25/2019) * HEPATITIS B SURFACE ANTIBODY(Performed 01/25/2019) * HEPATITIS B CORE ANTIBODY TOTAL(Performed 01/25/2019) * HIV-1 HIV-2 ANTIGEN/ANTIBODY(Performed 01/25/2019) * CBC W AUTO DIFFERENTIAL(Performed 01/25/2019) Performed for Hematochezia * KAPPA/LAMBDA LITE CHAIN FREE PANEL(Performed 01/25/2019) * PROTEIN ELECTROPHORESIS BLOOD(Performed 01/25/2019) * URIC ACID BLOOD(Performed 01/25/2019) * TRANSFUSE PLATELET PHERESIS UNIT(S)(Performed 01/24/2019) * DIFFERENTIAL MANUAL FLUID(Performed 01/24/2019) * CELL COUNT W DIFFERENTIAL FLUID(Performed 01/24/2019) * CULTURE FLUID+GRAM STAIN(Performed 01/24/2019) * HEPATITIS C AB SCREEN RFLX NAAT QUANT(Performed 01/24/2019) * CBC W AUTO DIFFERENTIAL(Performed 01/24/2019) Performed for Hematochezia * CBC W/O DIFFERENTIAL(Performed 01/24/2019) * ECHO COMPLETE(Performed 01/24/2019) Performed for Dyspnea, unspecified type, Heart murmur * US ABDOMEN LTD W COMP DOPPLER(Performed 01/24/2019) Performed for Decompensated hepatic cirrhosis (HCC) * PROTEIN URINE RANDOM QUANTITATIVE(Performed 01/24/2019) * UREA NITROGEN URINE RANDOM(Performed 01/24/2019) * CREATININE URINE RANDOM(Performed 01/24/2019) * SODIUM URINE RANDOM(Performed 01/24/2019) * URINALYSIS W/MICROSCOPIC NO CULTURE(Performed 01/24/2019) * CULTURE URINE(Performed 01/24/2019) * CYTOLOGY NON-LOG BUYER PANEL (STL)(Performed 01/24/2019) Performed for Decompensated hepatic cirrhosis (HCC) * DIFFERENTIAL MANUAL FLUID(Performed 01/24/2019) * ALBUMIN BODY FLUID(Performed 01/24/2019) * PROTEIN BODY FLUID(Performed 01/24/2019) * LDH BODY FLUID(Performed 01/24/2019) * CELL COUNT W DIFFERENTIAL FLUID(Performed 01/24/2019) * CULTURE FLUID+GRAM STAIN(Performed 01/24/2019) * CULTURE ANAEROBE(Performed 01/24/2019) * PREPARE PLATELET PHERESIS UNIT(S)(Performed 01/24/2019) * PREPARE PLATELET PHERESIS UNIT(S)(Performed 01/24/2019) * PREPARE PLATELET PHERESIS UNIT(S)(Performed 01/24/2019) * PREPARE RBC LEUKOREDUCED UNIT(Performed 01/24/2019) * PREPARE PLATELET PHERESIS UNIT(S)(Performed 01/24/2019) * TYPE + SCREEN PANEL(Performed 01/24/2019) * FOLATE(Performed 01/24/2019) * VITAMIN B12(Performed 01/24/2019) * RETIC COUNT(Performed 01/24/2019) * B-TYPE NATRIURETIC PEPTIDE(Performed 01/24/2019) * PT-INR [facility](Performed 01/24/2019) * PHOSPHORUS BLOOD(Performed 01/24/2019) * MAGNESIUM BLOOD(Performed 01/24/2019) * LACTIC ACID BLOOD(Performed 01/24/2019) * COMPREHENSIVE METABOLIC PANEL(Performed 01/24/2019) * CBC W AUTO DIFFERENTIAL(Performed 01/24/2019) * CULTURE BLOOD(Performed 01/24/2019) * CULTURE BLOOD(Performed 01/24/2019) * EKG 12-LEAD(Performed 01/24/2019) Performed for Decompensated hepatic cirrhosis (HCC) * XR CHEST 1VW PORTABLE(Performed 01/24/2019) Performed for Dyspnea, unspecified type * PARACENTESIS ABDOMEN (PERCUTANEOUS) Performed for Other ascites * PARACENTESIS ABDOMEN (PERCUTANEOUS) Performed for Other ascites * PARACENTESIS ABDOMEN (PERCUTANEOUS) Performed for Other ascites Results * (ABNORMAL) COMPREHENSIVE METABOLIC PANEL (08/05/2024 2:28 PM [facility]) Only the most recent of69 resultswithin the time period is included. BUN 33(H) 7 - 26 mg/dL 08/05/2024 3:15 PM [facility] Creatinine 5.66(H) 0.71 - 1.16 mg/dL 08/05/2024 3:15 PM [facility] Sodium 138 136 - 145 mmol/L 08/05/2024 3:15 PM [facility] Potassium See Comment 3.5 - 4.5 mmol/L 08/05/2024 3:15 PM [facility] Comment:Significant hemolysi s detected in this specimen. Recommend repeat testing if clinically indicated. Chloride 101 98 - 107 mmol/L 08/05/2024 3:15 PM [facility] CO2 25 22 - 29 mmol/L 08/05/2024 3:15 PM [facility] Glucose 93 70 - 99 mg/dL 08/05/2024 3:15 PM [facility] Calcium 9.0 8.4 - 10.2 mg/dL 08/05/2024 3:15 PM [facility] Protein Total See Comment 6.0 - 8.3 g/dL 08/05/2024 3:15 PM [facility] Comment:Significant hemolysi s detected in this specimen. Hemolysis leads to artifactual elevations of this analyte. The result has been suppressed. Please reorder test and submit a new specimen if clinically indicated. Page Clinical Exercise Specialist of Clinical Chemistry ([phone]) if you suspect in vivo hemolysis. Albumin 3.3(L) 3.4 - 5.0 g/dL 08/05/2024 3:15 PM [facility] Bilirubin Total 1.3(H) 0.2 - 1.2 mg/dL 08/05/2024 3:15 PM [facility] Alkaline Phosphatase 149 40 - 150 U/L 08/05/2024 3:15 PM [facility] ALT 14 5 - 55 U/L 08/05/2024 3:15 PM [facility] AST See Comment 5 - 34 Units/L 08/05/2024 3:15 PM [facility] Comment: Significant hemolysis detected in this specimen. Hemolysis leads to artifactual elevations of this analyte. The result has been suppressed. Please reorder test and submit a new specimen if clinically indicated. Page Clinical Exercise Specialist of Clinical Chemistry ([phone]) if you suspect in vivo hemolysis. BUN/Creatinine Ratio 6(L) 7 - 23 08/05/2024 3:15 PM [facility] Osmolality Calculated 293 275 - 295 mOsm/kg 08/05/2024 3:15 PM [facility] Albumin/Globuli n Ratio 0.8(L) 1.1 - 2.3 08/05/2024 3:15 PM [facility] eGFR by CKD-EPI 11(L) >=90 mL/min/1. 73 m2 08/05/2024 3:15 PM [facility] Blood BLOOD SPECIMEN / Unknown Venipuncture / Unknown 08/05/2024 2:28 PM [facility] 08/05/2024 2:43 PM [facility] Amina Carrera HORTICULTURE WORKER-SENIOR PRODUCTION PLANNER LAB - CHEMIS TRY ORDERABLES [address] [address], [facility] [phone] * GLUCOSE - POINT OF CARE (08/05/2024 2:27 PM [facility]) Only the most recent of22 resultswithin the time period is included. Glucose WB/POC 99 70 - 99 mg/dL 08/05/2024 9:01 PM [facility] Specimen Type Venous 08/05/2024 9:01 PM [facility] Blood BLOOD SPECIMEN / Unknown 08/05/2024 2:27 PM [facility] 08/05/2024 9:01 PM [facility] Provider Unknown LAB - POINT OF CARE ORDERABLES [facility] [address] [place] [address], [facility] [phone] * (ABNORMAL) PT-INR [facility] (07/24/2024 7:38 AM [facility]) Only the most recent of67 resultswithin the time period is included. PT 17.6(H) 12.1 - 14.8 Seconds 07/24/2024 8:36 AM [facility] INR 1.5 See Comment 07/24/2024 8:36 AM [facility] Comment:The suggested therap eutic range for standard coumadin (warfarin) therapy is an INR of 2.0-3.0. For high-risk patients (Mechanical Mitral Valve Prosthesis, etc.), the suggested prophylactic therapeutic range is an INR of 2.5-3.5. Blood BLOOD SPECIMEN / Unknown Lab Venipuncture / Unknown 07/24/2024 7:38 AM [facility] 07/24/2024 8:11 AM [facility] Melecio Graves MD LAB - COAGULATION OR DERABLES Performing Organization Address [facility] de Phone Number [facility] [address] [place] [address], [facility] [phone] * (ABNORMAL) DIFFERENTIAL MANUAL (07/24/2024 7:38 AM [facility]) Only the most recent of3 resultswithin the time period is included. Neutrophil % 73 41 - 74 % 07/24/2024 10:44 AM [facility] Lymphocyte % 15(L) 17 - 47 % 07/24/2024 10:44 AM [facility] Monocyte % 7 3 - 11 % 07/24/2024 10:44 AM [facility] Eosinophil % 4 0 - 7 % 07/24/2024 10:44 AM [facility] Basophil % 1 0 - 2 % 07/24/2024 10:44 AM [facility] Neutrophil Absolute 2.34 1.60 - 7.50 x10E9/L 07/24/2024 10:44 AM [facility] Lymphocyte Absolute 0.48(L) 1.00 - 4.40 x10E9/L 07/24/2024 10:44 AM [facility] Monocyte Absolute 0.22 0.15 - 1.00 x10E9/L 07/24/2024 10:44 AM [facility] Eosinophil Absolute 0.13 0.00 - 0.60 x10E9/L 07/24/2024 10:44 AM [facility] Basophil Absolute 0.03 0.00 - 0.13 x10E9/L 07/24/2024 10:44 AM [facility] RBC Morphology REVIEWED 07/24/2024 10:44 AM [facility] Blood BLOOD SPECIMEN / Unknown Lab Venipuncture / Unknown 07/24/2024 7:38 AM [facility] 07/24/2024 8:13 AM [facility] Melecio Graves MD LAB - HEMATOLOGY ORD ERABLES [facility] [address] [place] [id number], [facility] [phone] * (ABNORMAL) CBC W/ DIFFERENTIAL (07/24/2024 7:38 AM [facility]) Only the most recent of60 resultswithin the time period is included. WBC 3.2(L) 4.0 - 10.7 x10E9/L 07/24/2024 10:44 AM [facility] RBC Count 2.83(L) 4.30 - 5.80 x10E12/L 07/24/2024 10:44 AM [facility] Hemoglobin 9.3(L) 13.3 - 17.5 g/dL 07/24/2024 10:44 AM [facility] Hematocrit 27.9(L) 38.7 - 51.1 % 07/24/2024 10:44 AM [facility] MCV 98.6(H) 80.0 - 98.0 fL 07/24/2024 10:44 AM [facility] MCH 32.9 26.7 - 33.6 pg 07/24/2024 10:44 AM [facility] MCHC 33.3 31.7 - 36.3 g/dL 07/24/2024 10:44 AM [facility] RDW-CV 16.8(H) 11.3 - 14.8 % 07/24/2024 10:44 AM [facility] Platelet Count 48(L) 150 - 420 x10E9/L 07/24/2024 10:44 AM [facility] MPV 10.3 7.8 - 11.4 fL 07/24/2024 10:44 AM [facility] Blood BLOOD SPECIMEN / Unknown Lab Venipuncture / Unknown 07/24/2024 7:38 AM [facility] 07/24/2024 8:13 AM [facility] Narrative [facility] - 07/24/2024 10:44 AM [facility] A previously reported component NEUT % is [...] Graves MD LAB - HEMATOLOGY ORD ERABLES [address] [address], [facility] [phone] * APHERESIS/TRANSFUSION ORDER (07/14/2024 1:38 PM [facility]) Only the most recent of4 resultswithin the time period is included. Narrative 07/14/2024 1:38 PM [facility] Ordered by an unspecified provider. Scanned Document NURSING - VITAL SIGN S AND ASSESSMENT * PREPARE (CROSSMATCH) RBC UNIT(S), 1 Units (07/12/2024 1:17 AM [facility]) Only the most recent of10 resultswithin the time period is included. Unit Description AS1 LR PRBC [facility] BLOOD BANK LAB Unit ABO O [facility] BLOOD BANK LAB Unit Rh NEG [facility] Product Number R02 [facility] Denis LOOD BANK LAB Unit Donor # [id number] [facility] Unit Status released [facility] BLOO D [facility] Product Code [id number] [facility] OD [facility] Blood Type Barcode 9500 [facility] Expiration Date [id number] S BLOOD BANK LAB Blood Bank BLOOD SPECIMEN / Unknown 07/11/2024 6:01 AM TREE PULLER Pawan Lynn DO LAB - BLOOD BANK ORDERABLES [facility] [address] [place] [address], [facility] [phone] * TRANSFUSE PLATELET PHERESIS UNIT(S) (07/11/2024 9:19 AM TREE PULLER) Pawan Lynn DO NURSING - BLOOD P BETTIE TRANSFUSION * PATHOLOGY TISSUE (07/11/2024 8:43 AM TREE PULLER) Only the most recent of2 resultswithin the time period is included. Case Report Surgical Pathology Report Case: [id number] Authorizing Provider: Theron Medellin MD Collected: 07/11/2024 08:43 AM Ordering Location: [facility] Received: 07/11/2024 10:55 AM Pathologist: Bonnie Rene MD Specimen: Hernia Sac, RIGHT INGUINAL HERNIA SAC 07/14/2024 1:00 PM [facility] Final Diagnosis Soft tissue, right inguinal hernia sac, excision (A): - Fibrosis, reactive changes, and extensive hemosiderin deposition 07/14/2024 1:00 PM [facility] Microscopic Description and Comment Microscopic examination substantiates the final diagnosis. 07/14/2024 1:00 PM [facility] Clinical History The patient is a 58-year-old man with right inguinal hernia. Operative procedure: Repair 07/14/2024 1:00 PM [facility] Gross Description The requisition and specimen(s) are identified with the patient's name, Dominga Cuello. Received in formalin, specimen A , is a 4.0 x 3.0 x 1.5 cm saccular portion of medrano-pink to dusky purple fibromembranous tissue. The outer surfaces show focal adhesion and petechial hemorrhage. The inner linings are dusky purple and smooth, and range from 0.1-0.5 cm in thickness. The cut surfaces show interspersed gelatinous central layer. There are no additional gross lesions. Sub Prior sections are submitted in cassette A1. IKD 07/14/2024 1:00 PM [facility] Pathologist Location at [facility] 07/14/2024 1:00 PM [facility] Disclaimer The performance characteristics of all immunohistochemical and indirect immunofluorescence stains (if any) cited in this report were determined by the Histopathology Laboratory of [facility]. Some of these tests were developed by [...] the attending (teaching) pathologist. 07/14/2024 1:00 PM [facility] Embedded Images 07/14/2024 1:00 PM [facility] Biopsy, Excision HERNIA SAC / Unknown 07/11/2024 8:43 AM TREE PULLER 07/11/2024 10:55 AM TREE [facility]ULLER Comment:Pre-op diagnosis: symptomatic right inguinal hernia Theron Medellin MD LAB - PATHOLOGY/CYTO LOGY ORDERABLES [facility] [address] [phone] * ETT LINE PERFORMABLE (07/11/2024 7:55 AM TREE PULLER) Narrative Kayla Joyce Anes Asst - 07/11/2024 7:55 AM TREE PULLER Kayla Joyce Anes Asst 07/11/2024 7:55 AM Endotracheal Tube Placement: Patient Location: OR. Intubation Event Date/Time: 07/11/2024 7:40 AM Procedure: intubation ([id number]) Procedure Section: Sedation: under general anesthesia. Indications [...] PHERESIS UNIT(S), 1 Units (07/11/2024 6:54 AM TREE PULLER) Only the most recent of10 resultswithin the time period is included. [facility] Unit Description LR PLT Phere B7 [facility] Unit ABO O [facility] Unit Rh POS [facility] Product Number P27 [facility] B LOOD [facility] LAB Unit Donor # [id number] [facility] Unit Status transfused [facility] Product Code [id number] [facility] OD [facility] Blood Type Barcode 5100 [facility] Expiration Date [id number] S BLOOD BANK LAB Blood Bank BLOOD SPECIMEN / Unknown 07/11/2024 6:01 AM TREE P[facility]ER Pawan Lynn DO LAB - BLOOD BANK ORDERABLES [facility] [address] [place] [address], [facility] [phone] * TYPE + SCREEN PANEL (07/11/2024 5:57 AM TREE PULLER) Only the most recent of19 resultswithin the time period is included. [facility] Antibody Screen NEG 6:49 AM TREE PULLER [facility] ABO Rh O NEG 07/11/2024 6:49 AM TREE PULLER [facility] Blood Bank BLOOD SPECIMEN / Unknown Line Draw / Unknown 07/11/2024 5:57 AM TREE PULLER 07/11/2024 6:01 AM TREE P[facility]ER Zoe Arevalo APRN-SENIOR PRODUCTION PLANNER LAB - BLOOD B ANK ORDERABLES Performing Organization Address City/[facility]/ZIP Co de Phone Number [facility] [address] [place] [address], [facility] [phone] * POTASSIUM WHOLE BLD (07/11/2024 5:57 AM TREE PULLER) Only the most recent of3 resultswithin the time period is included. Pathologist [facility] Potassium Whole Blood 4.2 3.5 - 5.5 mmol/L 07/11/2024 6:14 AM [facility] Blood WHOLE BLOOD SPECIMEN / Unknown Line Draw / Unknown 07/11/2024 5:57 AM TREE PULLER 07/11/2024 6:04 AM TREE PULLER Zoe Arevalo APRN-SENIOR PRODUCTION PLANNER LAB - TROMPER RY ORDERABLES Performing Organization Address City/[facility]/ZIP Co de Phone Number [facility] [address] [place] [address], [facility] [phone] * (ABNORMAL) CBC W/O DIFFERENTIAL (06/14/2024 12:37 AM TREE PULLER) Only the most recent of35 resultswithin the time period is included. WBC 1.5(L) 4.0 - 10.7 x10E9/L 06/14/2024 1:57 AM [facility] RBC Count 2.29(L) 4.30 - 5.80 x10E12/L 06/14/2024 1:57 AM [facility] Hemoglobin 7.3(L) 13.3 - 17.5 g/dL 06/14/2024 1:57 AM [facility] Hematocrit 21.4(L) 38.7 - 51.1 % 06/14/2024 1:57 AM [facility] MCV 93.4 80.0 - 98.0 fL 06/14/2024 1:57 AM [facility] MCH 31.9 26.7 - 33.6 pg 06/14/2024 1:57 AM [facility] MCHC 34.1 31.7 - 36.3 g/dL 06/14/2024 1:57 AM [facility] RDW-CV 17.8(H) 11.3 - 14.8 % 06/14/2024 1:57 AM [facility] Platelet Count 33(L) 150 - 420 x10E9/L 06/14/2024 1:57 AM [facility] MPV 10.7 7.8 - 11.4 fL 06/14/2024 1:57 AM [facility] Blood BLOOD SPECIMEN / Unknown Lab Venipuncture / Unknown 06/14/2024 12:37 AM TREE PULLER 06/14/2024 1:18 AM [facility] Melecio Graves MD LAB - HEMATOLOGY ORD ERABLES [facility] [address] [place] [phone], [facility] [phone] * (ABNORMAL) BASIC METABOLIC PANEL (CALCIUM TOTAL) (06/14/2024 12:37 AM [facility]) Only the most recent of14 resultswithin the time period is included. BUN 21 7 - 26 mg/dL 06/14/2024 2:18 AM [facility] Creatinine 5.45(H) 0.71 - 1.16 mg/dL 06/14/2024 2:18 AM [facility] Sodium 139 136 - 145 mmol/L 06/14/2024 2:18 AM [facility] Potassium 4.3 3.5 - 4.5 mmol/L 06/14/2024 2:18 AM [facility] Chloride 99 98 - 107 mmol/L 06/14/2024 2:18 AM [facility] CO2 30(H) 22 - 29 mmol/L 06/14/2024 2:18 AM [facility] Glucose 84 70 - 99 mg/dL 06/14/2024 2:18 AM [facility] Calcium 8.1(L) 8.4 - 10.2 mg/dL 06/14/2024 2:18 AM [facility] Anion Gap 10 6 - 16 06/14/2024 2:18 AM [facility] BUN/Creatinine Ratio 4(L) 7 - 23 06/14/2024 2:18 AM [facility] Osmolality Calculated 290 275 - 295 mOsm/kg 06/14/2024 2:18 AM [facility] eGFR by CKD-EPI 11(L) >=90 mL/min/1.7 3 m2 06/14/2024 2:18 AM [facility] Blood BLOOD SPECIMEN / Unknown Lab Venipuncture / Unknown 06/14/2024 12:37 AM TREE PULLER 06/14/2024 1:19 AM [facility] Melecio Graves MD LAB - CHEMISTRY FREDO CHAVES Performing Organization Address City/[facility]/ZIP Co de Phone Number [address] [address], [place] [phone] * MAGNESIUM BLOOD (06/14/2024 12:37 AM TREE PULLER) Only the most recent of40 resultswithin the time period is included. Magnesium 1.8 1.6 - 2.6 mg/dL 06/14/2024 1:49 AM [facility] Blood BLOOD SPECIMEN / Unknown Lab Venipuncture / Unknown 06/14/2024 12:37 AM TREE PULLER 06/14/2024 1:19 AM T[facility] Melecio Graves MD LAB - CHEMISTRY FREDO CHAVES [facility] [address] [place] [phone], [place] [phone] * TRANSFUSE RED BLOOD CELL LEUKOREDUCED UNIT(S) (06/13/2024 5:43 PM TREE PULLER) Melecio Graves MD NURSING - BLOOD PROD TRANSFUSION * (ABNORMAL) HEPATIC FUNCTION PANEL (06/13/2024 8:48 AM TREE PULLER) Only the most recent of4 resultswithin the time period is included. Pathologist [facility] Protein Total 5.7(L) 6.0 - 8.3 g/dL 9:48 AM [facility] Albumin 2.3(L) 3.4 - 5.0 g/dL 06/13/2024 9:48 AM [facility] Bilirubin Total 1.5(H) 0.2 - 1.2 mg/dL 06/01 9:48 AM [facility] Bilirubin Conjugated 0.9(H) 0.1 - 0.5 mg/dL 06/13/2024 9:48 AM [facility] Bilirubin Unconjugated 0.6 Unconjugated Bilirubin is a calculated value: Reference ranges have not been established. mg/dL 06/13/2024 9:48 AM [facility] Alkaline Phosphatase 77 40 - 150 U/L 06/13/2024 9:48 AM [facility] ALT 7 5 - 55 U/L 06/13/2024 9:48 AM [facility] AST 27 5 - 34 U/L 06/13/2024 9:48 AM [facility] Albumin/Globulin Ratio 0.7(L) 1.1 - 2.3 06/13/2024 9:48 AM [facility] Blood BLOOD SPECIMEN / Unknown Lab Venipuncture / Unknown 06/13/2024 8:48 AM TREE PULLER 06/13/2024 9:18 AM [facility] Melecio Graves MD LAB - CHEMISTRY JAYMIEE [facility] Organization Address City/State/[facility] Co de Phone Number [facility] [address] [place] [phone], [facility] [phone] * FOLATE (06/13/2024 8:48 AM TREE PULLER) Only the most recent of3 resultswithin the time period is included. Pathologist [facility] Folate 8.5 7.0 - 31.4 ng/mL 06/13/2024 10:20 AM [facility] Blood BLOOD SPECIMEN / Unknown Lab Venipuncture / Unknown 06/13/2024 8:48 AM TREE PULLER 06/13/2024 9:18 AM TREE [facility]ER Melecio Graves MD LAB - CHEMISTRY FREDO CHAVES Performing Organization Address City/[facility]/ZIP Co de Phone Number [address] [address], [place] [phone] * (ABNORMAL) VITAMIN B12 (06/13/2024 8:48 AM TREE PULLER) Only the most recent of3 resultswithin the time period is included. Vitamin B12 1,274(H) 213 - 816 pg/mL 06/13/2024 10:20 AM TREE PULLER [facility] Blood BLOOD SPECIMEN / Unknown Lab Venipuncture / Unknown 06/13/2024 8:48 AM TREE PULLER 06/13/2024 9:18 AM TREE PULLER Melecio Graves MD LAB - CHEMISTRY FREDO CHAVES Performing Organization Address [facility] Co de Phone Number [address] [address], [place] [phone] * (ABNORMAL) PTH INTACT W/O CALCIUM (06/12/2024 1:23 AM TREE PULLER) Only the most recent of6 resultswithin the time period is included. Pathologist [facility] PTH Intact 407.3(H) 8.0 - 77.0 pg/mL 06/12/2024 2:23 AM TREE PULLER [facility] Blood BLOOD SPECIMEN / Unknown Lab Venipuncture / Unknown 06/12/2024 1:23 AM TREE PULLER 06/12/2024 1:42 AM TREE [facility]ER Melecio Graves MD LAB - CHEMISTRY FREDO CHAVES [address] [address], [place] [phone] * (ABNORMAL) IRON + TRANSFERRIN PANEL (06/12/2024 1:23 AM TREE PULLER) Only the most recent of2 resultswithin the time period is included. Iron 48(L) 50 - 175 ug/dL 06/12/2024 2:20 AM [facility] Transferrin 79(L) 174 - 382 mg/dL 06/12/2024 2:20 AM [facility] Transferrin Saturation % 49 16 - 50 % 06/12/2024 2:20 AM [facility] TIBC Calculated 99(L) 240 - 450 ug/dL 06/12/2024 2:20 AM [facility] Blood BLOOD SPECIMEN / Unknown Lab Venipuncture / Unknown 06/12/2024 1:23 AM TREE PULLER 06/12/2024 1:42 AM T[facility]ER Melecio Graves MD LAB - CHEMISTRY FREDO CHAVES Performing Organization Address City/[facility]/ZIP Co de Phone Number [facility] [address] [place] [phone], [facility] [phone] * (ABNORMAL) FERRITIN (06/12/2024 1:23 AM TREE PULLER) Only the most recent of5 resultswithin the time period is included. Ferritin 938(H) 22 - 275 ng/mL 06/12/2024 2:37 AM [facility] Blood BLOOD SPECIMEN / Unknown Lab Venipuncture / Unknown 06/12/2024 1:23 AM TREE PULLER 06/12/2024 1:42 AM T[facility]ER Melecio Graves MD LAB - CHEMISTRY FREDO CHAVES Performing Organization Address City/[facility]/ZIP Co de Phone Number [facility] [address] [place] [phone], [place] [phone] * EKG 12-LEAD (06/11/2024 7:45 PM TREE PULLER) Only the most recent of10 resultswithin the time period is included. Ventricular Rate 59 BPM [facility] Atrial Rate 59 BPM [facility] P-R Interval 242 ms [facility] QRS Duration ms 102 ms [facility] Q-T Interval ms 492 ms [facility] QTC Calculation (Bezet) 487 ms [facility] Calculated P Ashton 72 degrees [facility] Calculated R [place] 62 degrees [facility] Calculated T [place] 74 degrees [facility] Interpretation EKG SINUS BRADYCARDIA WITH 1ST DEGREE A-V BLOCK T WAVE ABNORMALITY, CONSIDER ANTERIOR ISCHEMIA ABNORMAL ECG Confirmed by LEILANI ROJAS MD ([id number]) on 06/13/2024 1:39:21 PM [facility] 06/11/2024 7:45 PM TREE PULLER 06/13/2024 1:39 PM TREE [facility]ER Melecio Graves MD ECG ORDERABLES [facility] MUSE * CT Knee Right Wo Contrast (06/11/2024 5:55 PM TREE PULLER) Anatomical Region Laterality Modality Lower Extremity Computed Tomogra phy 06/11/2024 6:16 PM TREE PULLER Impressions 06/12/2024 12:48 AM TREE PULLER IMPRESSION: 1.There is an osteochondral defect of [...] arthritis. > Dictated by Sandro Bro DO (physician president). I, Chad Renner MD have personally reviewed and interpreted this examination/study. > Interpreting Provider: Chad Renner MD on 06/12/2024 12:48 AM Narrative 06/12/2024 12:48 AM TREE PULLER PROCEDURE: CT KNEE RIGHT WO CONTRAST DATE/TIME [...] arthritis. > Dictated by Sandro Bro DO (physician president). I, Chad Renner MD have personally reviewed and interpreted this examination/study. > Interpreting Provider: Chad Renner MD on 06/12/2024 12:48 AM Minerva Ventura MD CT ORDERABLES * XR Knee Right 3Vw (06/11/2024 3:41 PM TREE PULLER) Only the most recent of2 resultswithin the time period is included. Anatomical Region Laterality Modality Lower Extremity Digital Radiogra phy 06/11/2024 3:37 PM TREE PULLER Impressions 06/11/2024 3:56 PM TREE PULLER IMPRESSION: Increase in size of moderate suprapatellar joint effusion. No acute fracture or dislocation. No radiographic evidence of osteomyelitis. Soft tissue swelling. Report dictated by Zahida Catalan MD, (physician president). Elzbieta Silva MD have personally reviewed and interpreted this examination/study. > Interpreting Provider: Elzbieta Woodard MD on 06/11/2024 3:56 PM Narrative 06/11/2024 3:56 PM TREE [facility]ULLER PROCEDURE: XR KNEE RIGHT 3VW DATE/TIME OF [...] swelling. Report dictated by Zahida Catalan MD, (physician president). Elzbieta Silva MD have personally reviewed and interpreted this examination/study. > Interpreting Provider: Elzbieta Woodard MD on 06/11/2024 3:56 PM Hany Whyte MD DIAGNOSTIC IMAGING O RDERABLES * (ABNORMAL) C-REACTIVE PROTEIN (06/11/2024 8:18 AM TREE PULLER) Only the most recent of2 resultswithin the time period is included. C-Reactive Protein 4.6(H) <=0.5 mg/dL 06/11/2024 8:57 AM TREE P[facility]ER [facility] Blood BLOOD SPECIMEN / Unknown Venipuncture / Unknown 06/11/2024 8:18 AM TREE PULLER 06/11/2024 8:25 AM TREE P[facility]ER Chivo Agudelo MD LAB - CHEMISTRY ORDE ANASTACIO [address] [address], [facility] [phone] * (ABNORMAL) ERYTHROCYTE SEDIMENTATION RATE (06/11/2024 8:18 AM TREE PULLER) Only the most recent of2 resultswithin the time period is included. Pathologist [facility] Erythrocyte Sedimentation Rate Westergren 31(H) 0 - 20 MM/HR 06/11/2024 10:12 AM TREE PULLER [facility] Blood BLOOD SPECIMEN / Unknown Venipuncture / Unknown 06/11/2024 8:18 AM TREE PULLER 06/11/2024 8:25 AM TREE P[facility]ER Chivo Agudelo MD LAB - HEMATOLOGY ORD ERAAMIRA [address] [address], [facility] [phone] * PHOSPHORUS BLOOD (06/11/2024 8:18 AM TREE PULLER) Only the most recent of41 resultswithin the time period is included. Phosphorus 3.7 2.8 - 5.1 mg/dL 06/11/2024 8:57 AM TREE P[facility]ER [facility] Blood BLOOD SPECIMEN / Unknown Venipuncture / Unknown 06/11/2024 8:18 AM TREE PULLER 06/11/2024 8:25 AM TREE PULLER Chivo Agudelo MD LAB - CHEMISTRY ORDE RABLES Performing Organization Address City/[facility]/ZIP Co de Phone Number [facility] [address] [place] [address], [place] [phone] * (ABNORMAL) BILIRUBIN DIRECT (05/28/2024 6:51 AM TREE PULLER) Only the most recent of10 resultswithin the time period is included. Bilirubin Conjugated 0.7(H) 0.1 - 0.5 mg/dL 05/28/2024 7:44 AM TREE PULLER [facility] Blood BLOOD SPECIMEN / Unknown Lab Venipuncture / Unknown 05/28/2024 6:51 AM TREE PULLER 05/28/2024 7:09 AM TREE PULLER Sanjuana Salazar MD LAB - CHEMISTRY FREDO SVENRADHA Performing Organization Address [facility]/ZIP Co de Phone Number [facility] [address] [place] [address], [facility] [phone] * XR Panorex (05/24/2024 2:12 PM TREE PULLER) Only the most recent of4 resultswithin the time period is included. Anatomical Region Laterality Modality Head Radiographic Cindy ging 05/25/2024 8:00 AM TREE PULLER Impressions 05/25/2024 11:44 PM TREE PULLER IMPRESSION: Motion artifact degrades image quality, within exam limitations. Consider performing this study again. Nonspecific radiolucency of the right paramedian mandible. Otherwise no evidence of periapical abscess. Report dictated by Judy Muller Dr, MD (physician president). I, Sonja Sanders MD have personally reviewed and interpreted this examination/study. > Interpreting Provider: Sonja Sanders MD on 05/25/2024 11:44 PM Narrative 05/25/2024 11:44 PM TREE [facility]ER PROCEDURE: XR PANOREX, DATE/TIME OF EXAM: 05/24/2024 2:13 PM, LOCATION [facility] INDICATION: M00.861: Arthritis of right [...] DATE/TIME OF EXAM: 05/24/2024 2:13 PM, LOCATION [facility] INDICATION: M00.861: Arthritis of right [...] Report dictated by Judy Muller Dr, MD (physician president). I, Sonja Sanders MD have personally reviewed and interpreted this examination/study. > Interpreting Provider: Sonja Sanders MD on 05/25/2024 11:44 PM Uli Murphy MD DIAGNOSTIC IMAGING O RDERABLES * (ABNORMAL) VITAMIN D 25-HYDROXY (05/23/2024 3:23 AM TREE PULLER) Only the most recent of5 resultswithin the time period is included. Vitamin D, 25 Hydroxy 16.4(L) 30.0 - 80.0 ng/mL 05/23/2024 8:10 AM TREE PULLER [facility] Comment: The recommendations for [...] Lab Venipuncture / Unknown 05/23/2024 3:23 AM TREE PULLER 05/23/2024 4:04 AM TREE PULLER Uli Murphy MD LAB - CHEMISTRY FREDO CHAVES [facility] [address] [place] [phone], [place] [phone] * VANCOMYCIN LEVEL RANDOM (05/23/2024 3:23 AM TREE PULLER) Only the most recent of3 resultswithin the time period is included. Pathologist [facility] Vancomycin Random 19.8 Therapeutic Ranges not established for random specimens ug/mL 05/23/2024 4:24 AM TREE PULLER [facility] Blood BLOOD SPECIMEN / Unknown Lab Venipuncture / Unknown 05/23/2024 3:23 AM TREE PULLER 05/23/2024 3:59 AM TREE PULLER Narrative [facility] - 05/23/2024 4:24 AM TREE PULLER See institution protocol. Uli Murphy MD LAB - CHEMISTRY FREDO CHAVES Performing Organization Address [facility]/ZIP Co de Phone Number [address] [address], [place] [phone] * CHLAMYDIA + GC AMPLIFIED PROBE (05/22/2024 1:26 PM TREE PULLER) Chlamydia Amplified Probe Negative Negative 05/22/2024 8:[address] [facility] MICROBIOLOG[facility] GC Amplified Probe Negative Negative 05/22/2024 8:38 PM TREE PULLER [facility] MICROBIOLOGY Microbiology ENTIRE PHARYNX / Unknown Collection / Unknown 05/22/2024 1:26 PM TREE PULLER 05/22/2024 1:31 PM TREE PULLER Narrative [facility]CROBIOLOG[facility] - 05/22/2024 8:38 PM TREE PULLER Results based on detection/no detection of ribosomal RNA by amplified method. Uli Murphy MD LAB - MICROBIOLOGY O RDERABLES [facility]CROBIOLOGY [address] [place] [address], [facility] [phone] * CULTURE BLOOD (05/22/2024 9:38 AM TREE PULLER) Only the most recent of6 resultswithin the time period is included. [facility] Culture No growth day 5 LEANNE 05/27/2024 2:31 PM TREE PULLER [facility] MICROBIOLOGY Blood PERIPHERAL BLOOD / Unknown Lab Venipuncture / Unknown 05/22/2024 9:38 AM TREE PULLER 05/22/2024 10:03 AM TREE PULLER Uli Murphy MD LAB - MICROBIOLOGY O RDERABLES Performing Organization Address City/[facility]/ZIP Co de Phone Number [facility] [address] [place] [address], [facility] [phone] * HEPATITIS C AB SCREEN RFLX NAAT QUANT (05/21/2024 2:29 AM TREE PULLER) Only the most recent of2 resultswithin the time period is included. [facility] Hepatitis C Antibody Non-react jaden Non-reac tive 05/22/2024 8:44 AM TREE PULLER [facility] Comment:Hepatitis C Antibody screen [...] Lab Venipuncture / Unknown 05/21/2024 2:29 AM TREE PULLER 05/21/2024 3:08 AM TREE PULLER Uli Murphy MD LAB - CHEMISTRY FREDO CHAVES [facility] [address] [place] [phone], [facility] [phone] * SYPHILIS ANTIBODY CASCADING REFLEX (05/21/2024 2:29 AM TREE PULLER) Only the most recent of5 resultswithin the time period is included. [facility] Treponema pallidum Antibody Non-react jaden Non-react jaden 05/22/2024 8:44 AM [facility] Comment: No Laboratory evidence of syphilis infection. Note: Circulating antibodies may be low or undetectable in early infection. If recent exposure is suspected, re-draw sample in 2-4 weeks and repeat testing. Blood BLOOD SPECIMEN / Unknown Lab Venipuncture / Unknown 05/21/2024 2:29 AM TREE PULLER 05/21/2024 3:08 AM TREE PULLER Uli Murphy MD LAB - SEROLOGY ORDER MALIHA Performing Organization Address City/[facility]/ZIP Co de Phone Number [address] [address], [place] [phone] * HIV-1 HIV-2 ANTIBODY + HIV P24 AG PANEL (05/21/2024 2:29 AM TREE PULLER) Only the most recent of3 resultswithin the time period is included. HIV Antigen/Antibod y 1 & 2 Non-reacti ve Non-react jaden 05/22/2024 8:44 AM [facility] Comment:No Laboratory eviden ce of HIV infection. Blood BLOOD SPECIMEN / Unknown Lab Venipuncture / Unknown 05/21/2024 2:29 AM TREE PULLER 05/21/2024 3:08 AM TREE PULLER Uli Murphy MD LAB - CHEMISTRY ORDE RABLES Performing Organization Address [facility] Co de Phone Number [address] [address], [place] [phone] * CRYSTAL INDENTIFICATION SYNOVIAL FLUID (05/20/2024 6:41 PM TREE PULLER) Crystal Exam Fluid To be performed by Pathology. See Path Review. 05/21/2024 8:16 AM [facility] Fluid SYNOVIAL FLUID / Unknown Collection / Unknown 05/20/2024 6:41 PM TREE PULLER 05/21/2024 8:13 AM TREE PULLER Gerardo Álvarez MD LAB - BODY FLUID ORD ERABLES Performing Organization Address City/[facility]/ZIP Co de Phone Number [address] [place] [address], [place] [phone] * PATHOLOGY SMEAR BODY FLUID (05/20/2024 6:41 PM TREE PULLER) Only the most recent of2 resultswithin the time period is included. Path Review Fluid Confirmed 05/22/2024 4:04 PM TREE PULLER [facility] Fluid SYNOVIAL FLUID / Unknown Collection / Unknown 05/20/2024 6:41 PM TREE PULLER 05/21/2024 8:13 AM TREE PULLER Narrative [facility] - 05/22/2024 4:04 PM TREE PULLER No intracellular crystals seen. Gerardo Álvarez MD LAB - PATHOLOGY/CYTO LOGY ORDERABLES [facility] [address] [place] [address], [place] [phone] * CULTURE WOUND+GRAM STAIN (05/20/2024 6:41 PM TREE PULLER) Culture No growth LEANNE 05/23/2024 5:56 AM TREE PULLER [facility] MICROBIOLOGY Gram Stain Moderate Polymorphonuclear cells 05/23/2024 5:56 AM TREE PULLER [facility]CRO[facility] Gram Stain Moderate Red blood cells 05/23/2024 5:56 AM TREE PULLER [facility]CRO[facility]OLOG[facility] Gram Stain No organisms seen 024 5:56 AM TREE PULLER [facility] MICROBIOLOGY Microbiology ENTIRE KNEE REGION / Unknown Collection / Unknown 05/20/2024 6:41 PM TREE [facility]ER 05/20/2024 6:49 PM TREE P[facility]ER Gerardo Álvarez MD LAB - MICROBIOLOGY O RDERABLES [facility] MICROBIOLOGY [address] [place] [address], [facility] [phone] * (ABNORMAL) CULTURE ANAEROBE (05/20/2024 6:41 PM TREE PULLER) Only the most recent of3 resultswithin the time period is included. Culture Light Gemella species(A) LEANNE 05/25/2024 12:[address] [facility] MICROBIOLOGY Microbiology ENTIRE [place] REGION / Unknown Collection / Unknown 05/20/2024 6:41 PM TREE P[employer]ER 05/20/2024 6:50 PM TREE P[employer]ER Gerardo Álvarez MD LAB - [facility]CROBIOLOGY [facility] [address] [place] [address], [facility] [phone] * ETT LINE PERFORMABLE (05/20/2024 6:24 PM TREE P[employer]ER) Narrative Kiko Garner Anes Asst - 05/20/2024 6:24 PM TREE [employer]ER Kiko Garner Anes Asst 05/20/2024 6:27 PM Endotracheal Tube Placement: Patient Location: OR. Intubation Event Date/Time: 05/20/2024 6:10 PM Procedure: intubation ([id number]) Procedure Section: Sedation: under general anesthesia. Indications [...] Anes Asst, Performed the procedure. Provider #2: Scaffold Worker, Student Anesthesiology Scaffold Worker Student Anesthesiology, Performed the procedure. Additional Comments: Atraumatic supervised intubation performed by Ramandeep Lawton, Student Anesthesiologist Scaffold Worker.. Nickolas Donahue MD GENERAL ANESTHESIA O MEREDITH * TRANSFUSE PLATELET PHERESIS UNIT(S) (05/20/2024 3:17 AM TREE PULLER) Sanjuana Salazar MD NURSING - BLOOD PROD TRANSFUSION * (ABNORMAL) URIC ACID BLOOD (05/19/2024 11:55 PM TREE PULLER) Only the most recent of5 resultswithin the time period is included. Uric Acid 7.6(H) 3.5 - 7.2 mg/dL 05/20/2024 12:23 AM TREE PULLER [facility] Blood BLOOD SPECIMEN / Unknown Venipuncture / Unknown 05/19/2024 11:55 PM TREE PULLER 05/19/2024 11:58 PM TREE PULLER Sanjuana Salazar MD LAB - CHEMISTRY ORDE ANASTACIO Performing Organization Address City/[facility]/ZIP Co de Phone Number [facility] [address] [place] [address], [facility] [phone] * CULTURE FUNGUS OTHER+FUNGUS SMEAR (05/19/2024 7:42 PM TREE PULLER) Pathologist [facility] Culture No fungus isolated LEANNE 06/14/2024 2:51 PM TREE PULLER [facility] MICROBIOLOGY Fungus Stain No yeast or hyphae seen 06/14/2024 2:51 PM TREE PULLER [facility] MICROBIOLOGY Microbiology SYNOVIAL FLUID / Unknown Collection / Unknown 05/19/2024 7:42 PM TREE PULLER 05/19/2024 7:42 PM TREE PULLER Sanjuana Salazar MD LAB - MICROBIOLOGY O RDERABLES Performing Organization Address City/[facility]/ZIP Co de Phone Number [facility] MICROBIOLOGY [address] [place] [address], [facility] [phone] * DIFFERENTIAL MANUAL FLUID (05/19/2024 7:42 PM TREE PULLER) Only the most recent of19 resultswithin the time period is included. Fluid Source Synovial 05/19/2024 9:14 PM [facility] Body Fluid Total Cell Count 100 x10E6/L 05/19/2024 9:14 PM [facility] Neutrophils Fluid Percent 97 % 05/19/2024 9:14 PM [facility] Lymphocytes Fluid Percent 2 % 05/19/2024 9:14 PM [facility] Macrophages Fluid Percent 1 % 05/19/2024 9:14 PM [facility] Fluid SYNOVIAL FLUID / Unknown Collection / Unknown 05/19/2024 7:42 PM TREE PULLER 05/19/2024 7:42 PM TREE PULLER Narrative [facility] - 05/19/2024 9:14 PM TREE PULLER No reference ranges established for body fluid differential cell counts. The test results must be integrated into the clinical context for interpretation. Sanjuana Salazar MD LAB - BODY FLUID ORD ERABLES Performing Organization Address City/[facility]/ZIP Co de Phone Number [facility] [address] [place] [address], [facility] [phone] * CULTURE FLUID+GRAM STAIN (05/19/2024 7:42 PM TREE PULLER) Only the most recent of19 resultswithin the time period is included. Culture No growth LEANNE 05/23/2024 5:56 AM TREE PULLER [facility] MICROBIOLOGY Gram Stain Light Polymorphonuclear cells 05/23/2024 5:56 AM TREE PULLER [facility] MICROBIOLOGY Gram Stain No organisms seen 024 5:56 AM TREE PULLER [facility] MICROBIOLOGY Other SYNOVIAL FLUID / Unknown Collection / Unknown 05/19/2024 7:42 PM TREE PULLER 05/19/2024 7:42 PM TREE PULLER Sanjuana Salazar MD LAB - MICROBIOLOGY O RDERABLES Performing Organization Address City/[facility]/ZIP Co de Phone Number [facility] MICROBIOLOGY [address] [place] [address], [facility] [phone] * (ABNORMAL) CELL COUNT W DIFFERENTIAL FLUID (05/19/2024 7:42 PM TREE PULLER) Fluid Source Synovial 05/19/2024 9:14 PM TREE PULLER [facility] Fluid Appearance TURBID 05/19/2024 9:14 PM [facility] Fluid Color ORANGE 05/19/2024 9:14 PM [facility] Total Nucleated Cells Fluid 56,010(H) <=200 x10E6/L 05/19/2024 9:14 PM [facility] RBC Count Fluid 40,000 Reference Range Not Established x10E6/L 05/19/2024 9:14 PM [facility] Fluid SYNOVIAL FLUID / Unknown Collection / Unknown 05/19/2024 7:42 PM TREE PULLER 05/19/2024 7:42 PM TREE PULLER Narrative [facility] - 05/19/2024 9:14 PM TREE PULLER No reference ranges established for body fluid cell counts. Any reference ranges provided are derived from published literature. The test results must be integrated into the clinical context for interpretation. Sanjuana Salazar MD LAB - BODY FLUID ORD ERABLES Performing Organization Address City/[facility]/ZIP Co de Phone Number [address] [address], [facility] [phone] * TRANSFUSE PLATELET PHERESIS UNIT(S) (05/19/2024 5:26 PM TREE PULLER) John Gutiérrez DO NURSING - BLOOD PROD TRANSFUSION * IMMATURE PLATELET FRACTION (05/01/2024 6:40 AM CDT) Immature Platelet Fraction 3.6 1.1 - 6.2 % 05/01/2024 8:34 AM CDT [facility] Blood BLOOD SPECIMEN / Unknown Lab Venipuncture / Unknown 05/01/2024 6:40 AM CDT 05/01/2024 7:51 AM CDT Melecio Graves MD LAB - HEMATOLOGY ORD ERABLES Performing Organization Address City/[facility]/ZIP Co de Phone Number [address] [address], [place] [phone] * (ABNORMAL) SLIDE SCAN HEMATOLOGY (05/01/2024 6:40 AM CDT) RBC Morphology REVIEWED 05/01/2024 8:34 AM CDT [facility] Microcytosis MODERATE(A) (none) 05/01/2024 8:34 AM CDT [facility] Blood BLOOD SPECIMEN / Unknown Lab Venipuncture / Unknown 05/01/2024 6:40 AM CDT 05/01/2024 7:51 AM CDT Melecio Graves MD LAB - HEMATOLOGY ORD ERABLES [address] [address] [phone] * MRI ABDOMEN WWO CONTRAST (04/01/2024 6:46 AM CDT) Only the most recent of4 resultswithin the time period is included. Anatomical Region Laterality Modality Abdomen Magnetic Resonan ce 04/01/2024 10:5 9 AM CDT Impressions 04/01/2024 3:52 PM CDT Impression: 1.No arterially-enhancing hepatic lesion with washout concerning for hepatocellular carcinoma. Multiple arterial enhancing observations without washout, LR 3. 2.Hepatic cirrhosis with sequelae of portal hypertension including splenomegaly and small volume ascites. 3.Cholelithiasis. Report dictated by Jaime Mcfarland MD, (physician president). IBianca MD have personally reviewed and interpreted this examination/study. > Interpreting Provider: Bianca Espinosa MD on 04/01/2024 3:52 PM Narrative 04/01/2024 3:52 PM CDT PROCEDURE: MRI ABDOMEN WWO CONTRAST, DATE/TIME OF EXAM: 04/01/2024 6:46 AM, LOCATION [facility] INDICATION: K74.60: Cirrhosis of liver with ascites, unspecified hepatic cirrhosis type (HCC) R18.8: Cirrhosis of liver with ascites, unspecified hepatic cirrhosis type (HCC) K76.9: Liver lesion ADDITIONAL CLINICAL INFORMATION: Ordering Provider Reason For Exam: LR3 lesions Technologist Note: Additional: COMPARISON: MRI abdomen 12/25/2023 TECHNIQUE: MRI of the abdomen was performed prior to and following the uneventful administration of 14 mL of Dotarem intravenous gadolinium contrast according to standard protocol. Findings: Lower Chest: Normal. Hepatobiliary system Liver morphology: Surface nodularity of the liver is consistent with hepatic cirrhosis. Steatosis: None. There is mild iron deposition in the liver and the spleen. Varices: Large upper abdominal varices. There is a splenorenal shunt Spleen: Enlarged, measuring 20 cm Ascites: Small volume ascites, unchanged. Focal liver observations No arterially enhancing observations with washout concerning for hepatocellular carcinoma. There is an approximately 4 mm arterial enhancing observation in hepatic segment 8 (image 27, series 9) without washout or capsular enhancement, LR 3. 3 mm arterial enhancing observation at the hepatic dome in hepatic segment 8 (image 20, series 9) without washout, LR 3. 7 mm arterial enhancing observation hepatic segment 6/5 (image 68, series 9), more prominent compared prior examination, without washout, LR 3. Few other arterial enhancing observations without washout is seen. The previously seen arterial enhancing observation hepatic segment 2 is not well seen on this exam. Hepatic vasculature Portal and hepatic veins: The portal vein is enlarged measuring 18 mm, solid portal hypertension. Arterial anatomy: Conventional. Gallbladder and bile ducts Gallbladder: Multiple gallstones are seen in the gallbladder. No wall thickening or pericholecystic fluid. Bile ducts: Nondilated. Retroperitoneum Pancreas: The pancreas shows normal signal intensity and T1-weighted images. A 5 mm cyst is again seen in the body of the pancreas (image 18, series 4). Otherwise pancreas is within normal limits. Pancreas duct is nondilated. Adrenals: The right adrenal gland is normal. Left adrenal gland is difficult to visualize due to splenorenal shunting in the same location. Kidneys: The kidneys are atrophic with numerous cysts consistent with known history of chronic renal disease. Some of the cysts are proteinaceous or hemorrhagic. Lymph nodes: Subcentimeter retroperitoneal lymph nodes are seen. Gastrointestinal: Imaged bowel and mesentery are normal. Other findings: None. Procedure Note Joan Espinosa MD - 04/01/2024 PROCEDURE: MRI ABDOMEN WWO CONTRAST, DATE/TIME OF EXAM: 04/01/2024 6:46 AM, LOCATION [facility] INDICATION: K74.60: Cirrhosis of liver with ascites, unspecified hepatic cirrhosistype (HCC) R18.8: Cirrhosis of liver with ascites, unspecified hepatic cirrhosistype (HCC) K76.9: Liver lesion ADDITIONAL CLINICAL INFORMATION: Ordering Provider Reason For Exam: LR3 lesions Technologist Note: Additional: COMPARISON: MRI abdomen 12/25/2023 TECHNIQUE: MRI of the abdomen was performed prior to and following the uneventful administration of 14 mL of Dotarem intravenous gadolinium contrast according to standard protocol. Findings: Lower Chest: Normal. Hepatobiliary system Liver morphology: Surface nodularity of the liver is consistent with hepatic cirrhosis. Steatosis: None. There is mild iron deposition in the liver and thespleen. Varices: Large upper abdominal varices. There is a splenorenal shunt Spleen: Enlarged, measuring 20 cm Ascites: Small volume ascites, unchanged. Focal liver observations No arterially enhancing observations with washout concerning for hepatocellular carcinoma. There is an approximately 4 mm arterial enhancing observation in hepatic segment 8 (image 27, series 9) without washout or capsular enhancement,LR 3. 3 mm arterial enhancing observation at the hepatic dome in hepaticsegment 8 (image 20, series 9) without washout, LR 3. 7 mm arterial enhancing observation hepatic segment 6/5 (image 68,series 9), more prominent compared prior examination, without washout, LR 3. Few other arterial enhancing observations without washout is seen. The previously seen arterial enhancing observation hepatic segment 2 is not well seen on this exam. Hepatic vasculature Portal and hepatic veins: The portal vein is enlarged measuring 18 mm, solid portal hypertension. Arterial anatomy: Conventional. Gallbladder and bile ducts Gallbladder: Multiple gallstones are seen in the gallbladder. No wall thickening or pericholecystic fluid. Bile ducts: Nondilated. Retroperitoneum Pancreas: The pancreas shows normal signal intensity and T1-weighted images. A 5 mm cyst is again seen in the body of the pancreas (image 18, series 4). Otherwise pancreas is within normal limits. Pancreas duct is nondilated. Adrenals: The right adrenal gland is normal. Left adrenal gland is difficult to visualize due to splenorenal shunting in the same location. Kidneys: The kidneys are atrophic with numerous cysts consistent withknown history of chronic renal disease. Some of the cysts are proteinaceous or hemorrhagic. Lymph nodes: Subcentimeter retroperitoneal lymph nodes are seen. Gastrointestinal: Imaged bowel and mesentery are normal. Other findings: None. Impression: 1.No arterially-enhancing hepatic lesion with washout concerning for hepatocellular carcinoma. Multiple arterial enhancing observationswithout washout, LR 3. 2.Hepatic cirrhosis with sequelae of portal hypertension including splenomegaly and small volume ascites. 3.Cholelithiasis. Report dictated by Jaime Mcfarland MD, (physician president). I, Bianca Espinosa MD have personally reviewed and interpreted this examination/study. > Interpreting Provider: Bianca Espinosa MD on 04/01/2024 3:52 PM Melecio Graves MD MR ORDERABLES * DRUG ABUSE URINE PANEL 9A W/ALC RFLX CONFIRM (03/17/2024 11:23 AM CDT) Amphetamines Urine Screen Negative Cutoff 300 ng/mL 03/18/2024 11:16 PM CDT [facility] ([facility]) Comment: Presumptive Negative by immunoassay. Testing by mass spectrometry is available on request. Barbiturates Urine Screen Negative Cutoff 200 ng/mL 03/18/2024 11:16 PM CDT [facility] ([facility]) Comment: Presumptive Negative by immunoassay. Testing by mass spectrometry is available on request. Benzodiazepines Urine Screen Negative Cutoff 200 ng/mL 03/18/2024 11:16 PM CDT [facility] ([facility]) Comment: Presumptive Negative by immunoassay. Testing by mass spectrometry is available on request. THC Urine Screen Negative Cutoff 50 ng/mL 03/18/2024 11:16 PM CDT [facility] ([facility]) Comment: Presumptive Negative by immunoassay. Testing by mass spectrometry is available on request. Cocaine Urine Screen Negative Cutoff 150 ng/mL 03/18/2024 11:16 PM T [facility] ([facility]) Comment: Presumptive Negative by immunoassay. Testing by mass spectrometry is available on request. Methadone Urine Screen Negative Cutoff 150 ng/mL 03/18/2024 11:16 PM T [facility] ([facility]) Comment: Presumptive Negative by immunoassay. Testing by mass spectrometry is available on request. Opiates Urine Negative Cutoff 300 ng/mL 03/18/2024 11:16 PM CDT [facility] ([facility]) Comment: Presumptive Negative by immunoassay. Testing by mass spectrometry is available on request. Phencyclidine Urine Screen Negative Cutoff 25 ng/mL 03/18/2024 11:16 PM T [facility] ([facility]) Comment: Presumptive Negative by immunoassay. Testing by mass spectrometry is available on request. Propoxyphene Urine Screen Negative Cutoff 300 ng/mL 03/18/2024 11:16 PM CDT [facility] ([facility]) Comment: Presumptive Negative by immunoassay. Testing by mass spectrometry is available on request. Alcohol Random Urine Negative Cutoff 40 mg/dL 03/18/2024 11:16 PM T [facility] ([facility]) Comment: Presumptive Negative by immunoassay. Testing by mass spectrometry is available on request. Creatinine Urine 58.5 20.0 - 400.0 mg/dL 03/18/2024 11:16 PM CDT [facility] ([facility]) CDASU 9A Comments See Note 024 11:16 PM T [facility] ([facility]) Comment: INTERPRETIVE INFORMATION: Drug Panel 9A, Urn, Scrn w/Rflx to Conf The absence of expected drug(s) and/or drug metabolite(s) may indicate non-compliance, inappropriate timing of specimen collection relative to drug administration, poor drug absorption, diluted/adulterated urine, or limitations of testing. The concentration at which the screening test can detect a drug or metabolite varies within a drug class. Specimens for which drugs or drug classes are detected by the screen are reflexed to a second, more specific technology (GC/MS, GC/FID, and/or LC-MS/MS). The concentration value must be greater than or equal to the cutoff to be reported as positive. Interpretive questions should be directed to the laboratory. For medical purposes only; not valid for forensic use. Oxycodone results are reported with the opiates results. MDMA results are reported with the amphetamines results. The following opioids are not detected in this test: fentanyl, buprenorphine, meperidine, tramadol, and tapentadol. A comprehensive panel that includes these opioids is available or individual opioid testing can be ordered. Refer to [facility] for test information. Performed By: [employer] [address] [place] [address] Shower Maid: Eugene Richmond MD, PhD CLIA Number: [id number] Urine URINE / Unknown Collection / Unknown 03/17/2024 11:23 AM CDT 03/17/2024 11:46 AM CDT Eugenie Dsouza HORTICULTURE WORKER-SENIOR PRODUCTION PLANNER LAB - URINE CHEMISTRY ORDERABLES [employer] ([facility]) [address] [place] [address], [facility] * (ABNORMAL) URINALYSIS COMPLETE W MICROSCOPIC (03/17/2024 11:23 AM CDT) Only the most recent of4 resultswithin the time period is included. Color UA Yellow Straw, Yellow 03/17/2024 12:33 PM CDT [facility] Clarity UA Clear Clear 03/17/2024 12:33 PM CDT [facility] Specific [place] UA 1.015 1.005 - 1.030 03/17/2024 12:33 PM [facility] pH UA 8.5(H) 5.0 - 8.0 pH 03/17/2024 12:33 PM [facility] Protein UA 2+(A) Negative 03/17/2024 12:33 PM [facility] Glucose UA Negative Negative 03/17/2024 12:33 PM [facility] Ketone UA Negative Negative 03/17/2024 12:33 PM [facility] Bilirubin UA Negative Negative 03/17/2024 12:33 PM [facility] Blood UA 2+(A) Negative 03/17/2024 12:33 PM [facility] Nitrite UA Negative Negative 03/17/2024 12:33 PM [facility] Leukocyte Esterase 1+(A) Negative 03/17/2024 12:33 PM [facility] Urobilinogen UA Negative Negative mg/dL 03/17/2024 12:33 PM [facility] RBC UA 3-5 None Seen, 0-2, 3-5 /HPF 03/17/2024 12:33 PM [facility] WBC UA 0-5 None Seen, 0-5 /HPF 03/17/2024 12:33 PM [facility] Bacteria UA None None /HPF 03/17/2024 12:33 PM [facility] Squamous Epithelial Cells UA None Seen None Seen, 0-2, 3-5 /HPF 03/17/2024 12:33 PM [facility] Urine URINE SPECIMEN OBTAINED BY CLEAN CATCH PROCEDURE / Unknown Collection / Unknown 03/17/2024 11:23 AM CDT 03/17/2024 11:46 AM [facility] - 03/17/2024 12:33 PM CDT Urine sample less that 1 mL. Microscopic exam performed on unconcentrated sample. Eugenie Dsouza HORTICULTURE WORKER-SENIOR PRODUCTION PLANNER LAB - URINA LYSIS ORDERABLES [facility] [address] [place] [phone], [facility] [phone] * HLA ANTIBODY SCREEN LUM CLASS 2 SAB (02/11/2024 11:48 AM CDT) Only the most recent of2 resultswithin the time period is included. % PRA 0 02/20/2024 4:21 PM CDT [facility]) Class 2 SAB Test Date [id number] 02/20/2024 4:21 PM CDT [facility] ([facility]) Comment: This test was developed and its performance characteristics determined by the [facility]. It has not been cleared or approved by the U.S. Food and Drug Administration. The FDA has determined that such clearance or approval is not necessary. This test is used for clinical purposes. It should not be regarded as investigational or for research. This laboratory is certified under the Clinical Laboratory Improvement Amendments of 1988 (CLIA-88) as qualified to perform high complexity clinical laboratory testing. CLIA ID# [id number] Performed at: [facility], [address] [place] [phone] Clerk:Dr. Juan Lockwood, PhD, Blood BLOOD SPECIMEN / Unknown Lab Venipuncture / Unknown 02/11/2024 11:48 AM CDT 02/11/2024 12:09 PM CDT Melecio Graves MD LAB - BLOOD BANK ORD ERABLES [facility]) [address] [place] [address], [facility] * HLA ANTIBODY SCREEN LUM CLASS 1 SAB (02/11/2024 11:48 AM CDT) Only the most recent of3 resultswithin the time period is included. % PRA 0 02/20/2024 4:21 PM CDT [facility]) Class 1 SAB Test Date [id number] 02/20/2024 4:21 PM CDT [facility] ([facility]) Comment: This test was developed and its performance characteristics determined by the [facility]. It has not been cleared or approved by the U.S. Food and Drug Administration. The FDA has determined that such clearance or approval is not necessary. This test is used for clinical purposes. It should not be regarded as investigational or for research. This laboratory is certified under the Clinical Laboratory Improvement Amendments of 1988 (CLIA-88) as qualified to perform high complexity clinical laboratory testing. CLIA ID# [id number] Performed at: [facility], [address] [place] [address] Clerk:Dr. Juan Lockwood, PhD, Blood BLOOD SPECIMEN / Unknown Lab Venipuncture / Unknown 02/11/2024 11:48 AM CDT 02/11/2024 12:09 PM CDT Melecio Graves MD LAB - BLOOD BANK ORD ERABLES [facility] ([facility]) [address] [place] [address], [facility] * CT ABDOMEN PELVIS WO CONTRAST (01/21/2024 1:59 PM CDT) Only the most recent of2 resultswithin the time period is included. Anatomical Region Laterality Modality Abdomen, Pelvis Computed Tomogra phy 01/21/2024 2:02 PM CDT Impressions 01/21/2024 7:53 PM CDT Impression: 1.Hepatic cirrhosis with sequela of portal hypertension including small volume ascites, splenorenal shunt and splenomegaly. 2.Right inguinal hernia containing fat and multiple loops of bowel. 3.No atherosclerotic calcification is present in the bilateral external iliac arteries. 4.Prostatomegaly. 5.Cholelithiasis. > Dictated by Sandi Deutsch MD (physician president). > Dictated by Sandi Deutsch (Coffee Grower) 01/21/2024 2:02 PM I, Chad Renner MD have personally reviewed and interpreted this examination/study. 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 TECHNIQUE: CT of the abdomen and pelvis was performed without contrast according to standard protocol. Findings: Evaluation of visceral and vascular structures is degraded due to lack of intravenous contrast administration. Lower Chest: Atherosclerosis with coronary arteries. Liver: The liver has a nodular surface, consistent with hepatic cirrhosis. Gallbladder and Bile Ducts: Cholelithiasis without evidence of acute cholecystitis. Spleen: Splenomegaly measuring up to 20 cm in AP diameter. Pancreas: Normal. Adrenals: Normal. Kidneys: Kidneys are atrophic bilaterally. Multiple hypodensities are present representing renal cysts some of which contain proteinaceous/hemorrhagic material. Bilateral nonobstructing hyperdense punctate foci which could represent nephrocalcinosis. Gastrointestinal: The stomach and visualized loops of large and small bowel are unremarkable. Normal appendix. Mesentery/Peritoneum/Retroperitoneum: Small volume ascites. Bladder: Normal. Reproductive Organs: The prostate is enlarged with multiple calcifications. Vasculature: Extensive atherosclerotic calcification of the aorta and its branch vessels. No calcification of the external iliac arteries. Splenorenal shunt. Bones: Bone windows demonstrate no suspicious lytic or blastic lesions. The visible osseous structures are intact. Degenerative changes are seen in the spine. Mild dextrocurvature of the lumbar spine. Soft tissues: Right inguinal hernia containing bowl without evidence of obstruction. 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 TECHNIQUE: CT of the abdomen and pelvis was performed without contrast according to standard protocol. Findings: Evaluation of visceral and vascular structures is degraded due to lackof intravenous contrast administration. Lower Chest: Atherosclerosis with coronary arteries. Liver: The liver has a nodular surface, consistent with hepatic cirrhosis. Gallbladder and Bile Ducts: Cholelithiasis without evidence of acute cholecystitis. Spleen: Splenomegaly measuring up to 20 cm in AP diameter. Pancreas: Normal. Adrenals: Normal. Kidneys: Kidneys are atrophic bilaterally. Multiple hypodensities are present representing renal cysts some of which contain proteinaceous/hemorrhagic material. Bilateral nonobstructing hyperdense punctate foci which could represent nephrocalcinosis. Gastrointestinal: The stomach and visualized loops of large and small bowel areunremarkable. Normal appendix. Mesentery/Peritoneum/Retroperitoneum: Small volume ascites. Bladder: Normal. Reproductive Organs: The prostate is enlarged with multiple calcifications. Vasculature: Extensive atherosclerotic calcification of the aorta and its branch vessels. No calcification of the external iliac arteries. Splenorenal shunt. Bones: Bone windows demonstrate no suspicious lytic or blastic lesions. The visible osseous structures are intact. Degenerative changes are seen inthe spine. Mild dextrocurvature of the lumbar spine. Soft tissues: Right inguinal hernia containing bowl without evidence of obstruction. Impression: 1.Hepatic cirrhosis with sequela of portal hypertension including small volume ascites, splenorenal shunt and splenomegaly. 2.Right inguinal hernia containing fat and multiple loops of bowel. 3.No atherosclerotic calcification is present in the bilateral external iliac arteries. 4.Prostatomegaly. 5.Cholelithiasis. > Dictated by Sandi Deutsch MD (physician president). > Dictated by Sandi Deutsch (Coffee Grower) 01/21/2024 2:02 PM I, Chad Renner MD have personally reviewed and interpreted this examination/study. > Interpreting Provider: Chad Renner MD on 01/21/2024 7:53 PM Melecio Graves MD CT ORDERABLES * CARDIAC EKG ORDER (01/17/2024 11:57 AM CDT) Only the most recent of18 resultswithin the time period is included. Narrative 01/17/2024 11:57 AM CDT Ordered by an unspecified provider. Scanned Document CARDIAC SERVICES ORD ERABLES * NM MYOCARD PERF REST STRESS (01/11/2024 12:52 PM CDT) Only the most recent of2 resultswithin the time period is included. Anatomical Region Laterality Modality Chest Nuclear Medicine 01/11/2024 1:42 PM CDT Addenda Addendum by Saqib Montanez MD on 04/28/2024 6:30 PM CDT Addendum: Low dose CT portion of the study which was not reported, revealed: Extensive atherosclerotic calcifications along the coronary arteries and the thoracic aorta, calcifications along the mitral valve annulus noted, liver cirrhosis, splenomegaly, pulmonary bibasilar dependent atelectatic changes noted. > Dictated by Regine Foy MD (Coffee Grower) 04/24/2024 10:28 PM I, Saqib Montanez MD have personally reviewed and interpreted this examination/study. > Interpreting Provider: Saqib Montanez MD on 04/28/2024 6:28 PM Impressions 01/11/2024 2:25 PM CDT Impression: 1. No evidence of myocardial infarction or stress-induced ischemia. 2. Normal left ventricular wall motion and thickening. 3. The calculated left ventricular ejection fraction of 58%. 4. Calcium score is consistent with the 99th percentile for age and race matched control. > Interpreting Provider: Jung Palacio M.D. on 01/11/2024 2:25 PM Narrative 01/11/2024 2:25 PM CDT PROCEDURE: NM MYOCARD PERF REST STRESS, DATE/TIME OF EXAM: 01/11/2024 12:52 PM, LOCATION [facility] INDICATION: N18.6: ESRD on dialysis (HCC) Z99.2: ESRD on dialysis (HCC) K70.31: Alcoholic cirrhosis of liver with ascites (HCC) N18.5: Stage 5 chronic kidney disease (HCC) Z01.818: Pre-transplant evaluation for liver transplant Z01.818: Pre-transplant evaluation for kidney transplant ADDITIONAL CLINICAL INFORMATION: Ordering Provider Reason For Exam: FRANCK anderson COMPARISON: None. Rest and Pharmacologic stress SPECT/CT myocardial imaging with gating- 1 day protocol Procedure: The rest intravenous injection of 8.82 mCi of Tc-99m Myoview was administered IV. Myocardial perfusion imaging was performed 30 minutes post-injection. Preliminary rest EKG demonstrated no evidence of ischemic changes. At the conclusion of the rest imaging, pharmacologic stress testing was performed with 0.4 mg of Regadenoson administered IV. No low-level exercise was performed in conjunction with the vasodilator infusion. The patient experienced no chest pain. Preliminary stress ECG demonstrated no evidence of ischemic changes. After approximately 10 seconds, the patient was injected with 25.2 mCi of Tc-99m Myoview IV. Gated SPECT/CT myocardial perfusion imaging was performed 30 minutes post-injection. Patient's BMI is 24.7. Low-dose noncontrast CT of the region of the heart was performed for attenuation correction only. Calcium scoring: Multiple unenhanced computed tomographic images with a section thickness of 2.5 mm were obtained throughout the entire heart. Image acquisition use a low radiation dose ECG synchronized CT protocol with the breath-hold. Calcium quantification and scoring was performed using an independent workstation. The heart rate at rest was 60 at baseline and increased to 71 beats per minute during the vasodilator infusion. The BP was 128/62 at rest and 108/48 after the stress procedure. A separate ECG report will be read by Cardiology. Findings: The image quality is technically excellent without significant motion or adjacent bowel activity. In the stress and rest SPECT/CT images, the left ventricle is normal in size. The stress SPECT/CT images show a normal pattern of myocardial perfusion. There is no significant change in the perfusion pattern at rest. Gated SPECT/CT images show normal myocardial thickening and normal wall motion. The calculated left ventricular ejection fraction is 58%. CT Calcium score: Calcium scoring to reveal subtle calcification with calcium score in the left main artery of 199.9, LAD of 881.4, LCX 817.0 and RCA 2476.4. Total calcium score is 4374.6. According to FINK Risk Score Calculator (https://www.fink-nhlbi.org/Calcium/input.aspx), this is consistent with the 99 percentile for age and race matched control. Procedure Note Jung Palacio MD / Saqib Montanez MD - 01/11/2024 PROCEDURE: NM MYOCARD PERF REST STRESS, DATE/TIME OF EXAM: 01/11/2024 12:52 PM, LOCATION [facility] INDICATION: N18.6: ESRD on dialysis (HCC) Z99.2: ESRD on dialysis (HCC) K70.31: Alcoholic cirrhosis of liver with ascites (HCC) N18.5: Stage 5 chronic kidney disease (HCC) Z01.818: Pre-transplant evaluation for liver transplant Z01.818: Pre-transplant evaluation for kidney transplant ADDITIONAL CLINICAL INFORMATION: Ordering Provider Reason For Exam: NITZAK evjanel COMPARISON: None. Rest and Pharmacologic stress SPECT/CT myocardial imaging with gating- 1 day protocol Procedure: The rest intravenous injection of 8.82 mCi of Tc-99m Myoview was administered IV. Myocardial perfusion imaging was performed 30 minutes post-injection. Preliminary rest EKG demonstrated no evidence ofischemic changes. At the conclusion of the rest imaging, pharmacologic stress testing was performed with 0.4 mg of Regadenoson administered IV. No low-level exercise was performed in conjunction with the vasodilator infusion. The patient experienced no chest pain. Preliminary stress ECG demonstrated no evidence of ischemic changes. After approximately 10 seconds, the patient was injected with 25.2 mCi of Tc-99m Myoview IV.Gated SPECT/CT myocardial perfusion imaging was performed 30 minutes post-injection. Patient's BMI is 24.7. Low-dose noncontrast CT of the region of the heart was performed for attenuation correction only. Calcium scoring: Multiple unenhanced computed tomographic images with a section thickness of 2.5 mm were obtained throughout the entire heart. Image acquisition use a low radiation dose ECG synchronized CT protocol with the breath-hold. Calcium quantification and scoring was performed using an independent workstation. The heart rate at rest was 60 at baseline and increased to 71 beats per minute during the vasodilator infusion. The BP was 128/62 at rest and 108/48 after the stress procedure. A separate ECG report will be read by Cardiology. Findings: The image quality is technically excellent without significant motion or adjacent bowel activity. In the stress and rest SPECT/CT images, theleft ventricle is normal in size. The stress SPECT/CT images show a normal pattern of myocardial perfusion. There is no significant change in the perfusion pattern at rest. Gated SPECT/CT images show normal myocardial thickening and normal wall motion. The calculated left ventricular ejection fraction is 58%. CT Calcium score: Calcium scoring to reveal subtle calcification with calcium score in the left main artery of 199.9, LAD of 881.4, LCX 817.0and RCA 2476.4. Total calcium score is 4374.6. According to FINK Risk Score Calculator (https://www.fink-nhlbi.org/Calcium/input.aspx), this is consistent with the 99 percentile for age and race matched control. Impression: 1. No evidence of myocardial infarction or stress-induced ischemia. 2. Normal left ventricular wall motion and thickening. 3. The calculated left ventricular ejection fraction of 58%. 4. Calcium score is consistent with the 99th percentile for age and race matched control. > Interpreting Provider: Jung Palacio M.D. on 01/11/2024 2:25 PM Melecio Graves MD NM ORDERABLES * STRESS TEST Pharm-Lexiscan (Regadenoson) (01/11/2024 11:54 AM CDT) Only the most recent of2 resultswithin the time period is included. [facility] Signature Predicted METS 8.3 METS SSM C V FUJI PACS Target HR 138 bpm SSM CV FUJ I PACS Max Age Predicted HR 162 bpm SSM CV FUJI PACS Baseline HR 60 bpm SSM CV F UJI PACS Stress peak HR 71 bpm SSM C V FUJI PACS Max HR Percent 44 % SSM C V FUJI PACS Baseline BP 128/62 mmHg SSM CV F UJI PACS Post peak BP 128/62 mmHg SSM CV FUJI PACS Target HR Percent 52 % SSM CV FUJI PACS ST Depression (mm) 0 mm SSM CV FUJI PACS Anatomical Region Laterality Modality Cardiac Electrop hysiology Narrative 01/11/2024 2:42 PM CDT ECG: The ECG was negative for ischemia. Stress Findings A pharmacological stress test was performed using regadenoson (0.4 mg). The patient reported flushing during the stress test. Symptoms began at minute 1142 during stress and ended at minute 1147 during recovery. The patient reached the end of the protocol. A peak heart rate of 71 bpm (44% of max predicted heart rate) was achieved. Blood pressure demonstrated a normal response and heart rate demonstrated a normal response to stress. The patient's heart rate recovery was normal. The patient's resting blood pressure was 128/62 mmHg. The patient's peak stress blood pressure was 128/62 mmHg. ECG Resting ECG: Abnormal. Normal sinus rhythm. ECG demonstrates first-degree AV block.Cannot rule out anterior infarct, age undetermined Stress ECG: No clinically relevant ST-segment deviation. The ECG was negative for ischemia. Melecio Graves MD CARDIAC SERVICES CUP ID * ECHO STRESS DOBUTAMINE COLOR FLOW AND DOPP W CONT (12/25/2023 12:13 PM CDT) Only the most recent of2 resultswithin the time period is included. Sinus of Valsalva 4.019 cm SSM CV FUJI PACS LVOT diam 2.11 cm SSM CV FUJ I PACS LVOT diam 2.11 cm SSM CV FUJ I PACS LVOT diam 2.11 cm SSM CV FUJ I PACS LVOT diam 2.11 cm SSM CV FUJ I PACS LV biplane EF 62.432 % SSM CV FUJI PACS LV biplane EF 62.432 % SSM CV FUJI PACS LV biplane EF 74.666 % SSM CV FUJI PACS LV biplane EF 74.666 % SSM CV FUJI PACS LV biplane EF 62.432 % SSM CV FUJI PACS LV biplane EF 62.432 % SSM CV FUJI PACS LV biplane EF 74.666 % SSM CV FUJI PACS LV biplane EF 74.666 % SSM CV FUJI PACS LV biplane EF 74.666 % SSM CV FUJI PACS LV A2C EF 56.823 % SSM CV FUJ I PACS LV A2C EF 56.823 % SSM CV FUJ I PACS LV A2C EF 71.789 % SSM CV FUJ I PACS LV A2C EF 71.789 % SSM CV FUJ I PACS LV A2C EF 56.823 % SSM CV FUJ I PACS LV A2C EF 56.823 % SSM CV FUJ I PACS LV A2C EF 71.789 % SSM CV FUJ I PACS LV A2C EF 71.789 % SSM CV FUJ I PACS LV A2C EF 71.789 % SSM CV FUJ I PACS LV A4C EF 68.168 % SSM CV I PACS LV A4C EF 68.168 % SSM CV FUJ I PACS LV A4C EF 77.053 % SSM CV I PACS LV A4C EF 77.053 % SSM CV FUJ I PACS LV A4C EF 68.168 % SSM CV I PACS LV A4C EF 68.168 % SSM CV I PACS LV A4C EF 77.053 % SSM CV I PACS LV A4C EF 77.053 % SSM CV I PACS LV A4C EF 77.053 % SSM CV RUST I PACS LV EDV A2C 256.551 ml SSM CV FU JI PACS LV EDV A2C 256.551 ml SSM CV FU JI PACS LV EDV A2C 285.008 ml SSM CV FU JI PACS LV EDV A2C 285.008 ml SSM CV FU JI PACS LV EDV A2C 256.551 ml SSM CV FU JI PACS LV EDV A2C 256.551 ml SSM CV FU JI PACS LV EDV A2C 285.008 ml SSM CV FU JI PACS LV EDV A2C 285.008 ml SSM CV FU JI PACS LV EDV A4C 266.301 ml SSM CV FU JI PACS LV EDV A4C 266.301 ml SSM CV FU JI PACS LV EDV A4C 236.351 ml SSM CV FU JI PACS LV EDV A4C 236.351 ml SSM CV FU JI PACS LV EDV A4C 266.301 ml SSM CV FU JI PACS LV EDV A4C 266.301 ml SSM CV FU JI PACS LV EDV A4C 236.351 ml SSM CV FU JI PACS LV EDV A4C 236.351 ml SSM CV FU JI PACS LV ESV A2C 110.771 ml SSM CV FU JI PACS LV ESV A2C 110.771 ml SSM CV FU JI PACS LV ESV A2C 80.402 ml SSM CV FU JI PACS LV ESV A2C 80.402 ml SSM CV FU JI PACS LV ESV A2C 110.771 ml SSM CV FU JI PACS LV ESV A2C 110.771 ml SSM CV FU JI PACS LV ESV A2C 80.402 ml SSM CV FU JI PACS LV ESV A2C 80.402 ml SSM CV FU JI PACS LV ESV A4C 84.768 ml SSM CV FU JI PACS LV ESV A4C 84.768 ml SSM CV FU PACS LV ESV A4C 54.235 ml SSM CV FU PACS LV ESV A4C 54.235 ml SSM CV FU PACS LV ESV A4C 84.768 ml SSM CV FU PACS LV ESV A4C 84.768 ml SSM CV FU PACS LV ESV A4C 54.235 ml SSM CV FU PACS LV ESV A4C 54.235 ml SSM CV FU PACS LVOT pk [place] 110.325 cm/s SSM CV [facility] PACS LVOT pk [place] 110.325 cm/s SSM CV [facility] PACS LVOT pk [place] 110.325 cm/s SSM CV [facility] PACS LVOT pk [place] 110.325 cm/s SSM CV [facility] PACS LVOT VTI 32.25 cm SSM CV [facility] PACS LVOT VTI 32.25 cm SSM CV [facility] PACS LVOT VTI 32.25 cm SSM CV [facility] PACS LVOT VTI 32.25 cm SSM CV [facility] PACS RVOT pk [place] 76.107 cm/s SSM CV [facility] PACS RVOT pk [place] 76.107 cm/s SSM CV [facility] PACS RVOT pk [place] 76.107 cm/s SSM CV [facility] PACS RVOT pk [place] 76.107 cm/s SSM CV [facility] PACS RVOT VTI 17.157 cm SSM CV [facility] PACS RVOT VTI 17.157 cm SSM CV FUJ I PACS RVOT VTI 17.157 cm SSM CV FUJ I PACS RVOT VTI 17.157 cm SSM CV FUJ I PACS AV mn grad 19.871 mmHg SSM CV FU JI PACS AV mn grad 19.871 mmHg SSM CV FU JI PACS AV mn grad 19.871 mmHg SSM CV FU JI PACS AV mn grad 19.871 mmHg SSM CV FU JI PACS AV pk [place] 300.994 cm/s SSM CV FUJ I PACS AV pk [place] 300.994 cm/s SSM CV FUJ I PACS AV pk [place] 300.994 cm/s SSM CV FUJ I PACS AV pk [place] 300.994 cm/s SSM CV FUJ I PACS AV VTI 73.114 cm SSM CV FUJ I PACS AV VTI 73.114 cm SSM CV FUJ I PACS AV VTI 73.114 cm SSM CV FUJ I PACS AV VTI 73.114 cm SSM CV FUJ I PACS MV mn grad 3.671 mmHg SSM CV FU JI PACS MV mn grad 3.671 mmHg SSM CV FU JI PACS MV mn grad 3.671 mmHg SSM CV FU JI PACS MV mn grad 3.671 mmHg SSM CV FU JI PACS MV VTI 45.665 cm SSM CV FUJ I PACS MV VTI 45.665 cm SSM CV FUJ I PACS MV VTI 45.665 cm SSM CV FUJ I PACS MV VTI 45.665 cm SSM CV FUJ I PACS PV pk [place] 100.738 cm/s SSM CV FUJ I PACS PV pk [place] 100.738 cm/s SSM CV FUJ I PACS PV pk [place] 100.738 cm/s SSM CV FUJ I PACS PV pk [place] 100.738 cm/s SSM CV FUJ I PACS PV VTI 26.569 cm SSM CV FUJ I PACS PV VTI 26.569 cm SSM CV FUJ I PACS PV VTI 26.569 cm SSM CV FUJ I PACS PV VTI 26.569 cm SSM CV FUJ I PACS TR pk [place] 236.919 cm/s SSM CV FUJ I PACS TR pk [place] 236.919 cm/s SSM CV FUJ I PACS TR pk [place] 236.919 cm/s SSM CV FUJ I PACS TR pk [place] 236.919 cm/s SSM CV FUJ I PACS Ascending aorta 4.092 cm SSM CV FUJI PACS Ascending aorta 4.092 cm SSM CV FUJI PACS Ascending aorta 4.092 cm SSM CV FUJI PACS Ascending aorta 4.092 cm SSM CV FUJI PACS Anatomical Region Laterality Modality Ultrasound 12/25/2023 9:30 AM CDT Narrative 12/25/2023 4:24 PM CDT Patient Info Name: Dominga Cuello Age: 58 years : 1965 Gender: Male Ht: 70 in Wt: 172 lb BSA: 1.97 m2 HR: 60 bpm BP: 138 / 59 mmHg Exam Date: 12/25/2023 9:30 AM Patient Status: O/P Study Site: [facility] Primary Location: [facility] EStud Info Technical Quality: Good Exam Type: ECHO STRESS DOBUTAMINE COLOR FLOW AND DOPP W CONT Indications Please refer to EHR for Exam Diagnosis Codes - Procedure(s) * Dobutamine stress echocardiogram is performed with 2D, color and Doppler. * An Ultrasound Enhancing Agent (UEA) was utilized to enhance endocardial definition and opacity the left ventricle. * Parasternal long axis, Parasternal short axis, RV inflow, Apical 4 chamber view, Apical 2 chamber view and Apical long axis view(s) obtained during the procedure. Contrast/Agitated Saline Contrast / Saline: Definity Amount: 0.50 ml Administered By: Tala Resendez Reaction to Contrast: no Contrast / Saline: Agitated Saline Amount: 20.00 ml Administered By: Tala Resendez Reaction to Contrast: no Reason for Technically Difficult Study: body habitus Staff Referring Physician: Melecio Graves Ordering Provider: Eugenie Dsouza Attending Physician: Eugenie Dsouza Triage Nurse: Allison Lynn Nurse: Tala Morgan Summary * Left ventricular systolic function is hyperdynamic [...] No ischemia at the achieved work load. Rest Echo Findings Left Ventricle The left ventricle is severely dilated. Left ventricular systolic function is hyperdynamic with an estimated ejection fraction of 75% by biplane method of disks. Normal left ventricular systolic function with no regional wall motion abnormalities. Right Ventricle Right ventricle chamber size are normal. Right ventricular systolic function is normal. Atrial Septum Agitated saline contrast study at rest and with Valsalva is negative for a shunt. Aortic Valve The aortic valve is trileaflet with calcification of the right and non coronary cusps. There is mild aortic valve stenosis with a peak velocity of 3.0 m/s, mean gradient of 20 mmHg, and aortic valve area of 1.5 cm2. There is no aortic valve regurgitation. Pulmonary Valve There is no pulmonic valve stenosis. Mitral Valve There is posterior annular calcification. There is no mitral valve stenosis. There is trace mitral valve regurgitation. Tricuspid Valve The tricuspid valve is structurally and functionally normal by two-dimensional, color flow Doppler and Doppler interrogation. Pericardium There is a trivial pericardial effusion. Inferior Vena Cava Dilated inferior vena cava with > 50% collapse upon inspiration consistent with elevated right atrial pressure, 8 mmHg. Aorta The aortic root at the sinus of Valsalva is dilated. The ascending aortic arch is normal in size. The aortic root at the sinus of Valsalva is dilated measuring 4.0 cm with an index of 2.0 cm/m2. Measurements Left Ventricular Outflow Tract Name Value Normal LVOT 2D LVOT Diameter 2.1 cm LVOT Area 3.5 cm2 LVOT Doppler LVOT Peak Velocity 1.1 m/s LVOT Peak Gradient 5 mmHg LVOT Mean Velocity 83.90 cm/s LVOT Mean Gradient 3 mmHg LVOT VTI 32.2 cm LVOT VTI/AV VTI Ratio 0.4 LVOT Stroke Volume 113 ml LVOT Stroke Volume Index 57 ml/m2 35-58 LVOT CO 6.7 l/min LVOT CI 3.4 l/min/m2 Pulmonic Valve Name Value Normal RVOT Doppler RVOT Peak Velocity 0.8 m/s RVOT Peak Gradient 2 mmHg RVOT Mean Gradient 1 mmHg PV Doppler PV Peak Velocity 1.0 m/s PV Peak Gradient 4 mmHg PV Mean Gradient 2 mmHg Mitral Valve Name Value Normal MV Doppler MV Peak Gradient 7 mmHg MV Mean Gradient 4 mmHg MV DI (VTI) 1.42 MV Area (Cont Eq VTI) 2.47 cm2 Tricuspid Valve Name Value Normal TV Regurgitation Doppler TR Peak Velocity 2.4 m/s TR Peak Gradient 22 mmHg Estimated PAP/RSVP RA Pressure 8 mmHg <=5 PA Systolic Pressure 30 mmHg <35 RV Systolic Pressure 30 mmHg <36 Aorta Name Value Normal Ascending Aorta Sinus of Valsalva Diameter 4.0 cm 3.1-3.7 Sinus of Valsalva Index 2.0 cm/m2 1.5-1.9 Asc Ao Diameter 4.1 cm 2.6-3.4 Asc Ao Diameter Index 2.1 cm/m2 1.3-1.7 Aortic Valve Name Value Normal AV Doppler AV Peak Velocity (Apical) 3.01 m/s AV Peak Gradient (Apical) 36 mmHg AV Mean Gradient (Apical) 20 mmHg AV VTI (Apical) 73 cm AV Area (Cont Eq VTI) 1.54 cm2 >=3.00 AV Area (Cont Eq [place]) 1.28 cm2 AV DI ([place]) 0.37 AV Regurgitation 2D LVOT Area 3.49 cm2 Ventricles Name Value Normal LV Fractional Shortening/Ejection Fraction 2D/MM LV Diastolic Volume (4C MOD) 236 ml LV EF (4C MOD) 77 % LV Diastolic Volume (2C MOD) 285 ml LV EF (2C MOD) 72 % LV Diastolic Volume (BP MOD) 262 ml 62-150 LV Diastolic Volume Index (BP MOD) 133 ml/m2 34-74 LV Systolic Volume (BP MOD) 66 ml 21-61 LV Systolic Volume Index (BP MOD) 34 ml/m2 11-31 LV EF (BP MOD) 75 % 52-72 LV Diastolic Length (4C) 10.3 cm LV Systolic Length (4C) 8.2 cm LV Stroke Volume (4C MOD) 182 ml Protocol: Dobutamine Stress ECG Details Stage: Rest Duration (min): 24 min : 25 sec Dose: 0 HR (bpm): 62 SBP (mmHg): 138 DBP (mmHg): 59 Symptoms: None Stage: 1 Duration (min): 3 min : 0 sec Dose: 10 mcg/kg/min Medication(s): Dobutamine HR (bpm): 63 SBP (mmHg): 129 DBP (mmHg): 49 Symptoms: None Stage: 2 Duration (min): 3 min : 0 sec Dose: 20 mcg/kg/min Medication(s): Dobutamine HR (bpm): 82 SBP (mmHg): 141 DBP (mmHg): 89 Symptoms: None Stage: 3 Duration (min): 4 min : 16 sec Dose: 30 mcg/kg/min Medication(s): Dobutamine HR (bpm): 91 SBP (mmHg): 166 DBP (mmHg): 92 Symptoms: None Stage: Recovery Duration (min): 6 min : 31 sec HR (bpm): 74 SBP (mmHg): 133 DBP (mmHg): 51 Symptoms: None Target HR Summary: Patient's target heart rate was not achieved due to effect of medications (e.g. B blockers/Ca channel blockers) BP Response: Normal blood pressure response Cardiac Symptoms: None Resting ECG Normal sinus rhythm - normal ECG at rest. Stress ECG No ischemia on EKG stress at the achieved work load. Arrhythmias No arrhythmias were observed during the examination. Termination Reason: Maximal effort/unable to continue Medications See Epic for a complete list of medications used during the study. IV saline was used. Heart Rate Response : Resting HR (bpm): 62 : Peak HR (bpm): 91 : Max Predicted HR (bpm): 162 : % of Max Predicted HR: 56 % : Target HR (bpm): 138 Medication Dobutamine Dose: 30mcg/kg/min Atropine Dose: 2.0 mg Report Signatures Echo Finalized by Makenzie Maradiaga on 12/25/2023 04:24 PM Stress ECG Finalized by Makenzie Maradiaga on 12/25/2023 04:24 PM Stress ECG Reviewed by Fellow Tala Resendez on 12/25/2023 12:54 PM Stress Findings The target heart rate was 138 bpm. Procedure Note Makenzie Maradiaga MD - 12/26/2023 Patient Info Name: Dominga Cuello Age: 58 years : 1965 Gender: Male Ht: 70 in Wt: 172 lb BSA: 1.97 m2 HR: 60 bpm BP: 138 / 59 mmHg Exam Date: 12/25/2023 9:30 AM Patient Status: O/P Study Site: [facility] Primary Location: [facility] [facility] Info Technical Quality: Good Exam Type: ECHO STRESS DOBUTAMINE COLOR FLOW AND DOPP W CONT Indications Please refer to EHR for Exam Diagnosis Codes - Procedure(s) * Dobutamine stress echocardiogram is performed with 2D, color andDoppler. * An Ultrasound Enhancing Agent (UEA) was utilized to enhanceendocardial definition and opacity the left ventricle. * Parasternal long axis, Parasternal short axis, RV inflow, Apical 4chamber view, Apical 2 chamber view and Apical long axis view(s) obtained duringthe procedure. Contrast/Agitated Saline Contrast / Saline: Definity Amount: 0.50 ml Administered By: Tala Resendez Reaction to Contrast: no Contrast / Saline: Agitated Saline Amount: 20.00 ml Administered By: Tala Resendez Reaction to Contrast: no Reason for Technically Difficult Study: body habitus Staff Referring Physician: Melecio Graves Ordering Provider: Eugenie Dsouza Attending Physician: Eugenie Dsouza Triage Nurse: Allison Lynn Nurse: Tala Resendez Summary * Left ventricular systolic function is hyperdynamic with an estimated ejection fraction of 75% by biplane method of disks. * Normal left ventricular systolic function with no regional wallmotion abnormalities. * Right ventricular systolic function is normal. * Right ventricle chamber size are normal. * Agitated saline contrast study at rest and with Valsalva is negativefor a shunt. * The aortic root at the sinus of Valsalva is dilated measuring 4.0 cmwith an index of 2.0 cm/m2. * Suboptimal heart rate response, 56% of maximal predicted heart rate achieve. * No ischemia on EKG stress at the achieved work load. * Dobutamine stress echocardiogram is non diagnostic due to low heartrate response. No ischemia at the achieved work load. Stress Echo Findings Left Ventricle Suboptimal heart rate response, 56% of maximal predicted heart rateachieve. Dobutamine stress echocardiogram is non diagnostic due to low heart rate response. No ischemia at the achieved work load. Rest Echo Findings Left Ventricle The left ventricle is severely dilated. Left ventricular systolicfunction is hyperdynamic with an estimated ejection fraction of 75% by biplanemethod of disks. Normal left ventricular systolic function with no regionalwall motion abnormalities. Right Ventricle Right ventricle chamber size are normal. Right ventricular systolicfunction is normal. Atrial Septum Agitated saline contrast study at rest and with Valsalva is negative fora shunt. Aortic Valve The aortic valve is trileaflet with calcification of the right and non coronary cusps. There is mild aortic valve stenosis with a peak velocityof 3.0 m/s, mean gradient of 20 mmHg, and aortic valve area of 1.5 cm2. Thereis no aortic valve regurgitation. Pulmonary Valve There is no pulmonic valve stenosis. Mitral Valve There is posterior annular calcification. There is no mitral valvestenosis. There is trace mitral valve regurgitation. Tricuspid Valve The tricuspid valve is structurally and functionally normal by two-dimensional, color flow Doppler and Doppler interrogation. Pericardium There is a trivial pericardial effusion. Inferior Vena Cava Dilated inferior vena cava with > 50% collapse upon inspirationconsistent with elevated right atrial pressure, 8 mmHg. Aorta The aortic root at the sinus of Valsalva is dilated. The ascendingaortic arch is normal in size. The aortic root at the sinus of Valsalva isdilated measuring 4.0 cm with an index of 2.0 cm/m2. Measurements Left Ventricular Outflow Tract Name Value Normal LVOT 2D LVOT Diameter 2.1 cm LVOT Area 3.5 cm2 LVOT Doppler LVOT Peak Velocity 1.1 m/s LVOT Peak Gradient 5 mmHg LVOT Mean Velocity 83.90 cm/s LVOT Mean Gradient 3 mmHg LVOT VTI 32.2 cm LVOT VTI/AV VTI Ratio 0.4 LVOT Stroke Volume 113 ml LVOT Stroke Volume Index 57 ml/m2 35-58 LVOT CO 6.7 l/min LVOT CI 3.4 l/min/m2 Pulmonic Valve Name Value Normal RVOT Doppler RVOT Peak Velocity 0.8 m/s RVOT Peak Gradient 2 mmHg RVOT Mean Gradient 1 mmHg PV Doppler PV Peak Velocity 1.0 m/s PV Peak Gradient 4 mmHg PV Mean Gradient 2 mmHg Mitral Valve Name Value Normal MV Doppler MV Peak Gradient 7 mmHg MV Mean Gradient 4 mmHg MV DI (VTI) 1.42 MV Area (Cont Eq VTI) 2.47 cm2 Tricuspid Valve Name Value Normal TV Regurgitation Doppler TR Peak Velocity 2.4 m/s TR Peak Gradient 22 mmHg Estimated PAP/RSVP RA Pressure 8 mmHg <=5 PA Systolic Pressure 30 mmHg <35 RV Systolic Pressure 30 mmHg <36 Aorta Name Value Normal Ascending Aorta Sinus of Valsalva Diameter 4.0 cm 3.1-3.7 Sinus of Valsalva Index 2.0 cm/m2 1.5-1.9 Asc Ao Diameter 4.1 cm 2.6-3.4 Asc Ao Diameter Index 2.1 cm/m2 1.3-1.7 Aortic Valve Name Value Normal AV Doppler AV Peak Velocity (Apical) 3.01 m/s AV Peak Gradient (Apical) 36 mmHg AV Mean Gradient (Apical) 20 mmHg AV VTI (Apical) 73 cm AV Area (Cont Eq VTI) 1.54 cm2 >=3.00 AV Area (Cont Eq [place]) 1.28 cm2 AV DI ([place]) 0.37 AV Regurgitation 2D LVOT Area 3.49 cm2 Ventricles Name Value Normal LV Fractional Shortening/Ejection Fraction 2D/MM LV Diastolic Volume (4C MOD) 236 ml LV EF (4C MOD) 77 % LV Diastolic Volume (2C MOD) 285 ml LV EF (2C MOD) 72 % LV Diastolic Volume (BP MOD) 262 ml 62-150 LV Diastolic Volume Index (BP MOD) 133 ml/m2 34-74 LV Systolic Volume (BP MOD) 66 ml 21-61 LV Systolic Volume Index (BP MOD) 34 ml/m2 11-31 LV EF (BP MOD) 75 % 52-72 LV Diastolic Length (4C) 10.3 cm LV Systolic Length (4C) 8.2 cm LV Stroke Volume (4C MOD) 182 ml Protocol: Dobutamine Stress ECG Details Stage: Rest Duration (min): 24 min : 25 sec Dose: 0 HR (bpm): 62 SBP (mmHg): 138 DBP (mmHg): 59 Symptoms: None Stage: 1 Duration (min): 3 min : 0 sec Dose: 10 mcg/kg/min Medication(s): Dobutamine HR (bpm): 63 SBP (mmHg): 129 DBP (mmHg): 49 Symptoms: None Stage: 2 Duration (min): 3 min : 0 sec Dose: 20 mcg/kg/min Medication(s): Dobutamine HR (bpm): 82 SBP (mmHg): 141 DBP (mmHg): 89 Symptoms: None Stage: 3 Duration (min): 4 min : 16 sec Dose: 30 mcg/kg/min Medication(s): Dobutamine HR (bpm): 91 SBP (mmHg): 166 DBP (mmHg): 92 Symptoms: None Stage: Recovery Duration (min): 6 min : 31 sec HR (bpm): 74 SBP (mmHg): 133 DBP (mmHg): 51 Symptoms: None Target HR Summary: Patient's target heart rate was not achieved due to effect of medications (e.g. B blockers/Ca channel blockers) BP Response: Normal blood pressure response Cardiac Symptoms: None Resting ECG Normal sinus rhythm - normal ECG at rest. Stress ECG No ischemia on EKG stress at the achieved work load. Arrhythmias No arrhythmias were observed during the examination. Termination Reason: Maximal effort/unable to continue Medications See [facility] for a complete list of medications used during the study. IVsaline was used. Heart Rate Response : Resting HR (bpm): 62 : Peak HR (bpm): 91 : Max Predicted HR (bpm): 162 : % of Max Predicted HR: 56 % : Target HR (bpm): 138 Medication Dobutamine Dose: 30mcg/kg/min Atropine Dose: 2.0 mg Report Signatures Echo Finalized by Makenzie Maradiaga on 12/25/2023 04:24 PM Stress ECG Finalized by Makenzie Maradiaga on 12/25/2023 04:24 PM Stress ECG Reviewed by Fellow Tala Resendez on 12/25/2023 12:54 PM Eugenie [facility] * BLOOD TYPE ABO+ RH PANEL (12/25/2023 8:19 AM CDT) Only the most recent of3 resultswithin the time period is included. ABO Rh O NEG 12/25/2023 9:4 5 AM CDT [facility] Blood BLOOD SPECIMEN / Unknown Lab Venipuncture / Unknown 12/25/2023 8:19 AM CDT 12/25/2023 9:04 AM CDT Eugenie [employer] LAB - BLOOD BANK ORDERABLES [facility] [address] [place] [address], [facility] [phone] * PHOSPHATIDYLETHANOL (PETH) (12/25/2023 8:13 AM CDT) Only the most recent of4 resultswithin the time period is included. PEth 16:0/18.1 (POPEth) <10 ng/mL 12/27/2023 2:32 AM [facility] [employer] ([facility]) Comment: PEth 16:0/18:1 (POPEth) Less than 10 ng/mL............Not detected Less than 20 ng/mL............Abstinence or light alcohol consumption 20 - 200 ng/mL................Moderate alcohol consumption Greater than 200 ng/mL........Heavy alcohol consumption or chronic alcohol use (Reference: Melchor Chiang and Elvin Fofana 2018 J. Forensic Sci) PEth 16:0/18.2 (PLPEth) <10 ng/mL 12/27/2023 2:32 AM [facility] [employer] ([facility]) Comment:Reference ranges are not well established. EER Peth See Note 12/27/2023 2:32 AM [facility] [employer] ([facility]) Comment: Authorized individuals can access the [facility] Enhanced Report using the following link: [email or web address] Interpretation PEth See Comment 12/27/2023 2:32 AM [facility] [employer] ([facility]) Comment: Phosphatidylethanol (PEth) is a group of phospholipids formed in the presence of ethanol, phospholipase D and phosphatidylcholine. PEth is known to be a direct alcohol biomarker. The predominant PEth homologues are PEth 16:0/18:1 (POPEth) and PEth 16:0/18:2 (PLPEth), which account for 37-46% and 26-28% of the total PEth homologues, respectively. PEth is incorporated into the phospholipid membrane of red blood cells and has a general half-life of 4-10 days and a window of detection of 2-4 weeks. However, the window of detection is longer in individuals who chronically or excessively consume alcohol. The limit of quantification is 10 ng/mL. Serial monitoring of PEth may be helpful in monitoring alcohol abstinence over time. PEth results should be interpreted in the context of the patient's clinical and behavioral history. Patients with advanced liver disease may have falsely elevated PEth concentrations (Mesha NOWAK et al 2018, Alcoholism Clinical & Experimental Research). This test was developed and its performance characteristics determined by [facility]. It has not been cleared or approved by the U.S. Food and Drug Administration. This test was performed in a CLIA-certified laboratory and is intended for clinical purposes. Performed By: [facility] [address] [place] [address] Shower Maid: Eugene Richmond MD, PhD CLIA Number: [id number] Blood BLOOD SPECIMEN / Unknown Lab Venipuncture / Unknown 12/25/2023 8:13 AM CDT 12/25/2023 8:31 AM CDT Eugenie Dsouza HORTICULTURE WORKER-SENIOR PRODUCTION PLANNER LAB - CHEMI STRY ORDERABLES [facility]) [address] [place] [address] * QUANTIFERON-TB GOLD PLUS 4-TUBE (12/25/2023 8:13 AM CDT) Only the most recent of3 resultswithin the time period is included. QuantiFERON Mitogen Minus NIL 10.00 IU/mL 12/29/2023 7:32 AM CDT [facility]) QuantiFERON Nil Value 0.00 IU/mL 12/29/2023 7:32 AM CDT [facility]) QuantiFERON Plus TB1 Minus NIL 0.01 <=0.34 IU/mL 12/29/2023 7:32 AM CDT [facility]) QuantiFERON Plus TB2 Minus NIL 0.00 <=0.34 IU/mL 12/29/2023 7:32 AM CDT [facility]) QuantiFERON-TB Gold Plus Negative Negative 12/29/2023 7:32 AM CDT [facility]) Comment: INTERPRETIVE INFORMATION:Quantiferon TB Gold Plus Interferon gamma release is measured for specimens from each of the four collection tubes. A qualitative result (Negative, Positive, or Indeterminate) is based on interpretation of the four values: NIL, MITOGEN minus NIL (MITOGEN-NIL), TB1 minus NIL (TB1-NIL), and TB2 minus NIL (TB2-NIL). The NIL value represents nonspecific reactivity produced by the patient specimen. The MITOGEN-NIL value serves as the positive control for the patient specimen, demonstrating successful lymphocyte activity. The TB1-NIL tube specifically detects CD4+ lymphocyte reactivity, specifically stimulated by the TB1 antigens. The TB2-NIL tube detects both CD4+ and CD8+ lymphocyte reactivity, stimulated by TB2 antigens. An overall Negative result does not completely rule out TB infection. A false-positive result in the absence of other clinical evidence of TB infection is not uncommon. Refer to: Updated Guidelines for Using Interferon Gamma Release Assays to Detect Mycobacterium tuberculosis Infection -- [place], 2010 (http://www.cdc.gov/mmwr/preview/mmwrhtml/jc4081s3.htm), for more information concerning test performance in low-prevalence populations and use in occupational screening. Performed By: [facility] [employer] [address] [place] [address] Shower Maid: Eugene Richmond MD, PhD CLIA Number: [id number] Blood BLOOD SPECIMEN / Unknown Lab Venipuncture / Unknown 12/25/2023 8:13 AM CDT 12/25/2023 8:33 AM CDT Eugenie Dsouza HORTICULTURE WORKER-SENIOR PRODUCTION PLANNER LAB - CHEMI STRY ORDERABLES [facility] ([facility]) [address] [place] [address], [facility] * (ABNORMAL) LUPUS ANTICOAGULANT PANEL (12/25/2023 8:13 AM CDT) Only the most recent of2 resultswithin the time period is included. APTT 43.3(H) 23.0 - 38.4 Seconds 12/25/2023 11:31 AM CDT [facility] PT 20.6(H) 12.1 - 14.8 Seconds 12/25/2023 11:31 AM CDT [facility] INR 1.8 See Comment 12/25/2023 11:31 AM CDT [facility] STACLOT-LA Buffer 54.6 Seconds 06/25/2 024 11:31 AM CDT [facility] STACLOT-LA Phospholipid 51.1 Seconds 12/25/2023 11:31 AM CDT [facility] STACLOT-LA Delta 3.5 <8.0 Seconds 12/25/2023 11:31 AM CDT [facility] Interpretation STACLOT-LA Negative 12/25/2023 11:31 AM CDT [facility] Comment:Up to 15-20% of sachin ents with lupus anticoagulant associated with antiphospholipid antibody syndrome (APAS) will have negative STACLOT-LA results. For these patients we recommend additional testing to include the Dilute Solomon Viper Venom Time (DRVVT) test. Immunoassay measurements of anti-cardiolipin and anti-beta-2 glycoprotein 1 are recommended if the DRVVT, and STACLOT-LA tests are negative and there is clinical suspicion of APAS. Blood BLOOD SPECIMEN / Unknown Lab Venipuncture / Unknown 12/25/2023 8:13 AM CDT 12/25/2023 8:31 AM CDT Eugenie Dsouza HORTICULTURE WORKER-SENIOR PRODUCTION PLANNER LAB - HEMAT OLOGY ORDERABLES [address] [address], [facility] [phone] * STRONGYLOIDES ANTIBODY IGG (12/25/2023 8:13 AM CDT) Only the most recent of3 resultswithin the time period is included. Strongyloides Antibody IgG 0.7 <=0.9 IV 12/26/2023 10:59 PM CDT [facility] ([facility]) Comment: INTERPRETIVE INFORMATION: Strongyloides Ab, IgG by ELICEO 0.9 IV or less....... Negative - No significant level of Strongyloides IgG antibody detected. 1.0 IV................Equivocal - The Strongyloides IgG antibody result is borderline and therefore inconclusive. Recommend retesting the patient in 2-4 weeks, if clinically indicated. 1.1 IV or greater ... Positive - IgG antibodies to Strongyloides detected, which may suggest current or past infection. False-positive results may occur with prior exposure to other helminth infections. Testing low-prevalence populations may also result in false-positive results. Performed By: [facility] [address] [place] [address] Shower Maid: Eugene Richmond MD, PhD CLIA Number: [id number] Blood BLOOD SPECIMEN / Unknown Lab Venipuncture / Unknown 12/25/2023 8:13 AM CDT 12/25/2023 8:32 AM CDT Eugenie Dsouza HORTICULTURE WORKER-SENIOR PRODUCTION PLANNER LAB - SEROL OGY ORDERABLES [facility] [employer] [facility]) [address] [place] [address], [facility] * (ABNORMAL) CYTOMEGALOVIRUS ANTIBODY IGG BLOOD (12/25/2023 8:13 AM CDT) Only the most recent of2 resultswithin the time period is included. Cytomegalovirus Antibody IgG >10.00(H ) <=0.70 U/mL 12/26/2023 12:47 PM CDT [facility] ([facility]) Comment: INTERPRETIVE INFORMATION: Cytomegalovirus Antibody, IgG 0.59 U/mL or less......... Not Detected 0.6 - 0.69 U/mL........... Indeterminate-Repeat testing in 10-14 days may be helpful. 0.70 U/mL or greater...... Detected In immunocompromised patients, CMV serology (IgG or IgM antibody titers) may not be reliable and may be misleading in the diagnosis of acute or reactivation CMV disease. The preferred method for diagnosis is culture of virus and/or demonstration of viral antigen in peripheral white cells (buffy coat), bronchoalveolar lavage (BAL) cells, or tissue biopsies. This test should not be used for blood donor screening, associated re-entry protocols, or for screening Human Cell, Tissues and Cellular and Tissue-Based Products (HCT/P). The best evidence for current infection is a significant change on two appropriately timed specimens, where both tests are done in the same laboratory at the same time. Performed By: [facility] [address] [place] [address] Shower Maid: Eugene Richmond MD, PhD CLIA Number: [id number] Blood BLOOD SPECIMEN / Unknown Lab Venipuncture / Unknown 12/25/2023 8:13 AM CDT 12/25/2023 8:32 AM CDT Eugenie Kurtis Dsouza HORTICULTURE WORKER-SENIOR PRODUCTION PLANNER LAB - CHEMI STRY ORDERABLES Performing Organization Address City/[facility] Co de Phone Number [facility] [employer] [facility]) [address] * RUBELLA ANTIBODY IGG TITER (12/25/2023 8:13 AM CDT) Only the most recent of2 resultswithin the time period is included. [facility] Rubella Antibody IgG 109.0 IU/mL 12/26/2023 1:07 PM CDT [facility] [employer] ([facility]) Comment: INTERPRETIVE INFORMATION: Rubella Antibody, IgG Less than 9 IU/mL ........ Not Detected 9 - 9.9 IU/mL ............ Indeterminate-Repeat testing in 10-14 days may be helpful. 10 IU/mL or Greater ...... Detected The best evidence for current infection is a significant change on two appropriately timed specimens, where both tests are done in the same laboratory at the same time. The magnitude of the measured result is not indicative of the amount of antibody present. Performed By: [facility] [address] [place] [address] Shower Maid: Eugene Richmond MD, PhD CLIA Number: [id number] Blood BLOOD SPECIMEN / Unknown Lab Venipuncture / Unknown 12/25/2023 8:13 AM CDT 12/25/2023 8:32 AM CDT Eugenie Dsouza APRN-[facility] LAB - SEROL OGY ORDERABLES Performing Organization Address City/[facility]/ZIP Co de Phone Number [facility] ([facility]) [address] * RUBEOLA ANTIBODY IGG (12/25/2023 8:13 AM CDT) Only the most recent of3 resultswithin the time period is included. Measles (Rubeola) Antibody IgG >300.0 AU/mL 12/26/2023 12:16 PM CDT [facility] [employer] ([facility]) Comment: INTERPRETIVE INFORMATION: Measles (Rubeola) Antibody, IgG 13.4 AU/mL or less........ Negative - No significant level of detectable measles (rubeola) IgG antibody. 13.5-16.4 AU/mL .......... Equivocal - Repeat testing in 10-14 days may be helpful. 16.5 AU/mL or greater .... Positive - IgG antibody to measles (rubeola) detected which may indicate a current or past exposure/immunization to measles (rubeola). The best evidence for current infection is a significant change on two appropriately timed specimens, where both tests are done in the same laboratory at the same time. Performed By: [facility] [address] [place] [address] Shower Maid: Eugene Richmond MD, PhD CLIA Number: [id number] Blood BLOOD SPECIMEN / Unknown Lab Venipuncture / Unknown 12/25/2023 8:13 AM CDT 12/25/2023 8:32 AM CDT Eugenie Dsouza HORTICULTURE WORKER-SENIOR PRODUCTION PLANNER LAB - CHEMI STRY ORDERABLES [facility] [employer] [facility]) [address] [place] [address], [facility] * MUMPS ANTIBODY IGG (12/25/2023 8:13 AM CDT) Only the most recent of3 resultswithin the time period is included. Mumps Virus Antibody IgG 10.8 AU/mL 12/26/2023 12:44 PM CDT [facility] [employer] ([facility]) Comment: INTERPRETIVE INFORMATION: Mumps Ab, IgG by MOISES 8.9 AU/mL or less .... Negative - No significant level of detectable IgG mumps virus antibody 9.0-10.9 AU/mL ....... Equivocal - Repeat testing in 10-14 days may be helpful 11.0 AU/mL or greater: Positive - IgG antibody to mumps virus detected, which may indicate a current or past exposure/ immunization to mumps virus. The best evidence for current infection is a significant change on two appropriately timed specimens, where both tests are done in the same laboratory at the same time. Performed By: [facility] [facility] [address] [place] [address] Shower Maid: Eugene Richmond MD, PhD CLIA Number: [id number] Blood BLOOD SPECIMEN / Unknown Lab Venipuncture / Unknown 12/25/2023 8:13 AM CDT 12/25/2023 8:32 AM CDT Eugenie Dsouza HORTICULTURE WORKER-SENIOR PRODUCTION PLANNER LAB - CHEMI STRY ORDERABLES [facility]) [address] [place] [address] * VARICELLA ZOSTER ANTIBODY IGG (12/25/2023 8:13 AM CDT) Only the most recent of3 resultswithin the time period is included. [facility] Varicella zoster Virus Antibody IgG >4000.0 IV 12/26/2023 12:50 PM CDT [facility] ([facility]) Comment: INTERPRETIVE INFORMATION: VZV Ab, IgG 134.9 IV or less ....... Negative - No significant level of detectable IgG varicella-zoster antibody. 135.0 - 164.9 IV ....... Equivocal - Repeat testing in 10-14 days may be helpful. 165.0 IV or greater .... Positive - IgG antibody to varicella-zoster detected, which may indicate a current or past varicella-zoster infection. The best evidence for current infection is a significant change on two appropriately timed specimens, where both tests are done in the same laboratory at the same time. Performed By: [facility] [facility] [address] [place] [address] Shower Maid: Eugene Richmond MD, PhD CLIA Number: [id number] Blood BLOOD SPECIMEN / Unknown Lab Venipuncture / Unknown 12/25/2023 8:13 AM CDT 12/25/2023 8:32 AM CDT Eugenie Dsouza HORTICULTURE WORKERDeliveryCheetah ORDERABLES Performing Organization Address City/[facility]/ZIP Co de Phone Number [facility]) [address] * TRANSFERRIN (12/25/2023 8:13 AM CDT) Only the most recent of3 resultswithin the time period is included. Pathologist [facility] Transferrin 178 174 - 382 mg/dL 12/25/2023 9:03 AM CDT [facility] Blood BLOOD SPECIMEN / Unknown Lab Venipuncture / Unknown 12/25/2023 8:13 AM CDT 12/25/2023 8:32 AM CDT Eugenie Hull Dsouza [facility] ORDER[facility] Performing Organization Address City/[facility]/ZIP Co de Phone Number [address] [address], [facility] [phone] * TOXOPLASMA GONDII ANTIBODY IGG (12/25/2023 8:13 AM CDT) Only the most recent of3 resultswithin the time period is included. Pathologist [facility] Toxoplasma Antibody IgG <3.0 <=8.8 IU/mL 12/26/2023 12:35 PM CDT [facility] ([facility]) Comment: INTERPRETIVE INFORMATION: Toxoplasma Ab, IgG 7.1 IU/mL or less....... Not Detected 7.2-8.7 IU/mL .......... Indeterminate-Repeat testing in 10-14 days may be helpful. 8.8 IU/mL or greater ... Detected The best evidence for current infection is a significant change on two appropriately timed specimens, where both tests are done in the same laboratory at the same time. This test should not be used for blood donor screening, associated re-entry protocols, or for screening Human Cell, Tissues and Cellular and Tissue-Based Products (HCT/P). The magnitude of the measured result is not indicative of the amount of antibody present. Performed By: [facility] [address] [place] [address] Shower Maid: Eugene Richmond MD, PhD CLIA Number: [id number] Blood BLOOD SPECIMEN / Unknown Lab Venipuncture / Unknown 12/25/2023 8:13 AM CDT 12/25/2023 8:32 AM CDT Eugenie Dsouza [facility] - CHEMI STRY ORDERABLES Performing Organization Address [facility] de Phone Number [facility] [employer] ([facility]) [address] * (ABNORMAL) KATIE-TRINIDAD VIRUS ANTIBODY TO VCA IGG (12/25/2023 8:13 AM CDT) Only the most recent of2 resultswithin the time period is included. Katie-Trinidad Virus Antibody IgG Viral Capsid Antigen >750.0(H) 0.0 - 21.9 U/mL 12/26/2023 1:03 PM CDT [facility] [employer] ([facility]) Comment: INTERPRETIVE INFORMATION: Katie-Trinidad Virus Antibody to Viral Capsid Antigen, IgG 17.9 U/mL or less.......Not Detected 18.0-21.9 U/mL..........Indeterminate - Repeat testing in 10-14 days may be helpful. 22.0 U/mL or greater....Detected Performed By: [email or web address] [address] [place] [address] Shower Maid: Eugene Richmond MD, PhD CLIA Number: [id number] Blood BLOOD SPECIMEN / Unknown Lab Venipuncture / Unknown 12/25/2023 8:13 AM CDT 12/25/2023 8:32 AM CDT Eugenie Dsouza [facility] - CHEMI STRY ORDERABLES Performing Organization Address City/[facility]/ZIP Co de Phone Number [facility] [employer] ([facility]) [address] * HEMOGLOBIN A1C (12/25/2023 8:13 AM CDT) Only the most recent of4 resultswithin the time period is included. Hemoglobin A1c 4.4 <=5.6 % 12/25/2023 9:57 AM CDT [facility] Estimated Average Glucose 80 mg/dL 12/25/2023 9:57 AM CDT [facility] Comment: HbA1c Interpretation: Normal : < 5.7% Pre-diabetes: 5.7-6.4% Diabetes: Equal to or greater than 6.5% Test results diagnostic of diabetes should be repeated for confirmation. Treatment target values recommended by ADA and other clinical organizations should be used to evaluate metabolic control in patients. Reference: [place] [employer] Association, Standards of Care in Diabetes -2020 In patients 70 years and older consider HbA1c target range of 7.0-7.5% (Reference: Jeffrey Castellano et al. JAMDA. 2012) The Sebia assay for the measurement of HbA1c is a National Glycohemoglobin Standardization Program (NGSP) certified method. Blood BLOOD SPECIMEN / Unknown Lab Venipuncture / Unknown 12/25/2023 8:13 AM CDT 12/25/2023 8:37 AM CDT Eugenie Dsouza [facility] LAB - CHEMI STRY ORDERABLES Performing Organization Address City/[facility]/ZIP Co de Phone Number [address] [address], [place] [phone] * ALPHA FETOPROTEIN BLOOD TUMOR (12/25/2023 8:13 AM CDT) Only the most recent of5 resultswithin the time period is included. Alpha-Fetoprote in Tumor Marker 3.0 <=8.3 ng/mL 12/25/2023 9:31 AM CDT [facility] Comment: AFP values will vary depending on testing procedure used. Results are not comparable across different methods. AFP values obtained by [facility] using an Ricardo Alinity Immunoassay. Blood BLOOD SPECIMEN / Unknown Lab Venipuncture / Unknown 12/25/2023 8:13 AM CDT 12/25/2023 8:39 AM CDT Eugenie Dsouza HORTICULTURE WORKER-SENIOR PRODUCTION PLANNER LAB - CHEMI STRY ORDERABLES [address] [address], [place] [phone] * NICOTINE + METABOLITES BLOOD (12/25/2023 8:13 AM CDT) Only the most recent of4 resultswithin the time period is included. Pathologist [facility] Nicotine 20 ng/mL 12/28/2023 9:00 PM CDT [facility] ([facility]) Comment: INTERPRETIVE INFORMATION: Nicotine and Metabolites, Serum or Plasma, Quantitative Methodology: Quantitative Liquid Chromatography-Tandem Mass Spectrometry Positive cutoff: 5 ng/mL For medical purposes only; not valid for forensic use. This test is designed to evaluate recent use of nicotine-containing products. Passive and active exposure cannot be discriminated definitively, although a cutoff of 10 ng/mL cotinine is frequently used for surgery qualification purposes. For smoking cessation programs or compliance testing, the absence of expected drug(s) and/or drug metabolite(s) may indicate non-compliance, inappropriate timing of specimen collection relative to drug administration, poor drug absorption, or limitations of testing. This test cannot distinguish between use of tobacco and purified nicotine products. The concentration value must be greater than or equal to the cutoff to be reported as positive. This test was developed and its performance characteristics determined by [employer]. It has not been cleared or approved by the US Food and Drug Administration. This test was performed in a CLIA certified laboratory and is intended for clinical purposes. Performed By: [employer] [address] [place] [address] Shower Maid: Eugene Richmond MD, PhD CLIA Number: [id number] Cotinine 239 ng/mL 12/28/2023 9:00 PM CDT [facility] [employer] ([facility]) Blood BLOOD SPECIMEN / Unknown Lab Venipuncture / Unknown 12/25/2023 8:13 AM CDT 12/25/2023 8:32 AM CDT Eugenie Dsouza HORTICULTURE WORKER-SENIOR PRODUCTION PLANNER LAB - CHEMI STRY ORDERABLES [facility]) [address] * PROSTATE SPECIFIC ANTIGEN SCREEN (12/25/2023 8:13 AM CDT) Only the most recent of3 resultswithin the time period is included. Pathologist [facility] PSA Total 0.6 0.0 - 4.0 ng/mL 12/25/2023 9:22 AM CDT [facility] Blood BLOOD SPECIMEN / Unknown Lab Venipuncture / Unknown 12/25/2023 8:13 AM CDT 12/25/2023 8:36 AM CDT Eugenie Dsouza HORTICULTURE WORKER-SENIOR PRODUCTION PLANNER LAB - CHEMI STRY ORDERABLES Performing Organization Address City/[facility]/ZIP Co de Phone Number [facility] [address] [place] [phone], [facility] [phone] * IRON BLOOD (12/25/2023 8:13 AM CDT) Only the most recent of3 resultswithin the time period is included. [facility] Iron 137 50 - 175 ug/dL 12/25/2023 9:03 AM CDT [facility] Blood BLOOD SPECIMEN / Unknown Lab Venipuncture / Unknown 12/25/2023 8:13 AM CDT 12/25/2023 8:32 AM CDT Eugenie Dsouza HORTICULTURE WORKER-SENIOR PRODUCTION PLANNER LAB - CHEMI STRY ORDERABLES Performing Organization Address [facility] Co de Phone Number [address] [address], [facility] [phone] * (ABNORMAL) HEPATITIS B SURFACE ANTIBODY (12/25/2023 8:13 AM CDT) Only the most recent of3 resultswithin the time period is included. [facility] Hepatitis B Virus Surface Antibody Reactive( A) Non-react jaden 12/25/2023 9:23 AM CDT [facility] Comment: > 12 mIU/mL Hepatitis B surface Antibody (HBsAb). Reactive for HBsAb - individual is considered immune to Hepatitis B Virus infection. Hepatitis B Surface Antibody Quantitative 671.7(H) <8.0 mIU/mL 12/25/2023 9:23 AM CDT [facility] Comment: Hepatitis B Surface Antibody Numeric Result Interpretation: Nonreactive: <8.0 mIU/mL Indeterminate: 8.0 - 12.0 mIU/mL Reactive: >12.0 mIU/mL Blood BLOOD SPECIMEN / Unknown Lab Venipuncture / Unknown 12/25/2023 8:13 AM CDT 12/25/2023 8:32 AM CDT Eugenie Dsouza APRN-SENIOR PRODUCTION PLANNER LAB - CHEMI STRY ORDERABLES [address] [address], [facility] [phone] * HEPATITIS B CORE ANTIBODY (12/25/2023 8:13 AM CDT) Only the most recent of3 resultswithin the time period is included. HBc Antibody Total Non-reacti ve Non-reacti ve 12/25/2023 9:23 AM CDT [facility] Blood BLOOD SPECIMEN / Unknown Lab Venipuncture / Unknown 12/25/2023 8:13 AM CDT 12/25/2023 8:32 AM CDT Eugenie Dsouza APRN-SENIOR PRODUCTION PLANNER LAB - CHEMI STRY ORDERABLES Performing Organization Address City/[facility] Co de Phone Number [address] [phone], [facility] [phone] * HEPATITIS B SURFACE ANTIGEN W RFLX CONFIRMATION (12/25/2023 8:13 AM CDT) Only the most recent of6 resultswithin the time period is included. Hepatitis B Virus Surface Antigen Non-reacti ve Non-reacti ve 12/25/2023 9:23 AM CDT [facility] Blood BLOOD SPECIMEN / Unknown Lab Venipuncture / Unknown 12/25/2023 8:13 AM CDT 12/25/2023 8:32 AM CDT Eugenie Dsouza HORTICULTURE WORKER-SENIOR PRODUCTION PLANNER LAB - CHEMI STRY ORDERABLES [address] [address], [facility] [phone] * HEPATITIS C ANTIBODY (12/25/2023 8:13 AM CDT) Only the most recent of2 resultswithin the time period is included. Hepatitis C Antibody Non-react jaden Non-reac tive 12/25/2023 9:23 AM CDT [facility] Comment:Hepatitis C Antibody screen indicates no [...] / Unknown 12/25/2023 8:13 AM CDT 12/25/2023 8:32 AM CDT Eugenie Dsouza HORTICULTURE WORKER-SENIOR PRODUCTION PLANNER LAB - CHEMI STRY ORDERABLES Performing Organization Address City/[facility]/ZIP Co de Phone Number [address] [address], [facility] [phone] * (ABNORMAL) HEPATITIS A ANTIBODY (12/25/2023 8:13 AM CDT) Only the most recent of2 resultswithin the time period is included. Pathologist [facility] Hepatitis A Virus Antibody Total Positive( A) Negative 12/26/2023 12:10 PM CDT [employer] ([facility]) Comment: The positive anti-HAV is consistent with recent or remote Hepatitis A infection or antibody response to HAV vaccination. False positive anti-HAV can occur. Performed By: [employer] [address] [place] [address] Shower Maid: Eugene Richmond MD, PhD CLIA Number: [id number] Blood BLOOD SPECIMEN / Unknown Lab Venipuncture / Unknown 12/25/2023 8:13 AM CDT 12/25/2023 8:32 AM CDT Eugenie Dsouza HORTICULTURE WORKER-SENIOR PRODUCTION PLANNER LAB - CHEMI STRY ORDERABLES Performing Organization Address [facility]/ZIP Co de Phone Number [employer] [facility]) [address] [place] [phone] * (ABNORMAL) LIPID PROFILE (12/25/2023 8:13 AM CDT) Only the most recent of3 resultswithin the time period is included. Cholesterol Total 104 <200 mg/dL 12/25/2023 9:18 AM CDT [facility] HDL 37(L) >40 mg/dL 12/25/2023 9:18 AM CDT [facility] Comment: ATP III Classification of HDL Cholesterol: <40 mg/dL: Considered a major risk factor. >60 mg/dL: Considered a negative risk factor. LDL Calculated 56 <100 mg/dL 12/25/2023 9:18 AM CDT [facility] Comment: ATP III Classification of LDL Cholesterol: <100 mg/dL: Optimal 100 - 129 mg/dL: Near Optimal/Above Optimal 130 - 159 mg/dL: Borderline High 160 - 189 mg/dL: High >190 mg/dL: Very High Triglycerides 57 <150 mg/dL 12/25/2023 9:18 AM CDT [facility] Comment: ATP III Classification of Triglycerides: <150 mg/dL: Normal 150 - 199 mg/dL: Borderline High 200 - 400 mg/dL: High >500 mg/dL: Very High Blood BLOOD SPECIMEN / Unknown Lab Venipuncture / Unknown 12/25/2023 8:13 AM CDT 12/25/2023 8:37 AM CDT Eugenie Dsouza HORTICULTURE WORKER-SENIOR PRODUCTION PLANNER LAB - CHEMI STRY ORDERABLES Performing Organization Address [facility] Co de Phone Number [address] [address], [facility] [phone] * ECHO COMPLETE (11/01/2023 8:03 AM CDT) Only the most recent of2 resultswithin the time period is included. Pathologist [facility] BSA 2.4759606 [id number] m2 SSM CV FUJI PACS LV biplane EF 69 52 - 72 % SSM CV FUJI PACS LV A2C EF 72 48 - 76 % SSM CV FUJ I PACS LV A4C EF 68 46 - 74 % SSM CV FUJ I PACS LV stroke vol BP 166.3 mL SSM CV FUJI PACS LV stroke vol BP index 83.1 mL/m2 SSM CV FUJI PACS LVOT stroke vol 159.25 mL SSM CV FUJI PACS LVOT stroke vol index 79.60 mL/m2 SSM CV FUJI PACS LV stroke vol 2D teich 53.105 ml SSM CV FUJI PACS LV Stroke Index 2D Teich 26.54 mL/m2 SSM CV FUJI PACS LV stroke vol index A4C MOD 135.063 ml/m2 SSM CV FUJI PACS LVIDd 4.62 4.2 - 5.8 cm SSM CV FUJI PACS LVIDs 3.33 2.5 - 4.0 cm SSM CV FUJI PACS IVSd 2D 1.276 0.6 - 1 cm SSM CV FUJI PACS LVPWd 0.97 0.6 - 1 cm SSM CV FUJI PACS Fractional Shortening 2D 28 28 - 44 % SSM CV FUJI PACS LV ESV BP 73.715 21 - 61 mL SSM CV FUJI PACS LV ESV index BP 36.8 11 - 31 mL/m2 SSM CV FUJI PACS LV ESV A2C 63.605 15 - 75 mL SSM CV FUJI PACS LV ESV index A2C 31.79 9 - 37 mL/m2 SSM CV FUJI PACS LV EDV BP 240.014 62 - 150 mL SSM CV FUJI PACS LV ESV A4C 76.012 22 - 78 mL SSM CV FUJI PACS LV ESV index A4C 37.99 12 - 40 mL/m2 SSM CV FUJI PACS LV EDV index BP 120.0 34 - 74 mL/m2 SSM CV FUJI PACS LV EDV A2C 266.832 59 - 175 mL SSM CV FUJI PACS LV EDV index A2C 133.37 31 - 87 mL/m2 SSM CV FUJI PACS LV EDV A4C 198.668 mL SSM CV FU JI PACS LV ESV 2D 45.178 21 - 61 mL SSM CV FUJI PACS LV EDV index A4C 99.30 37 - 93 mL/m2 SSM CV FUJI PACS LV ESV index 2D 22.58 11 - 31 mL/m2 SSM CV FUJI PACS LV EDV 2D 98.283 62 - 150 mL SSM CV FUJI PACS LV EDV index 2D 49.13 34 - 74 mL/m2 SSM CV FUJI PACS LVOT diam 2.2 cm SSM CV FUJ I PACS LVOT area 3.78 cm2 SSM CV FUJ I PACS LV RWT 0.421 SSM CV FUJ I PACS LV [place] A2C 10.813 cm SSM CV F UJI PACS LV [place] A4C 9.922 cm SSM CV F UJI PACS IVS/LVPW 1.311 SSM CV FUJ I PACS LV mass 2D 202.8132 96 - 200 g SSM CV FUJI PACS LV mass index 2D 101.37 50 - 102 g/m2 SSM CV FUJI PACS MV E pk [place] 86.399 cm/s SSM CV F UJI PACS MV avg E/e' ratio 12.69 SS M CV FUJI PACS MV A pk [place] 87.931 cm/s SSM CV F UJI PACS MV E A ratio 0.98 SSM CV FUJI PACS MV E' lateral [place] 8.525 cm/s SS M CV FUJI PACS MV DT 178 ms SSM CV FUJ I PACS MV E' septal [place] 5.667 cm/s SSM CV FUJI PACS MV A duration 134 ms SSM CV FUJI PACS MV E/e' septal 15.246 SSM C V FUJI PACS MV E/e' lateral 10.135 SSM CV FUJI PACS LA vol BP 110.095 mL SSM CV FUJ I PACS P vein A [place] 22.3 cm/s SSM CV FUJI PACS P vein A duration 197 msec SS M CV FUJI PACS P vein S/D ratio 1.03 SSM CV FUJI PACS LVOT pk [place] 1.49 m/s SSM CV F UJI PACS LVOT mn [place] 1.09 m/s SSM CV F UJI PACS LVOT mn grad 5.3 mmHg SSM CV FUJI PACS LVOT Cardiac Output 9.096 l/min SSM CV FUJI PACS LVOT Cardiac Index 4.55 l/min/m2 SSM CV FUJI PACS LA vol index 55.0 16 - 34 mL/m2 SSM CV FUJI PACS LA size 4.639 3.0 - 4.0 cm SSM CV FUJI PACS LA vol BP A-L 117.414 mL SSM CV FUJI PACS RVIDd 4.2 cm SSM CV FUJ I PACS RVOT VTI 23 cm SSM CV FUJ I PACS TV S' [place] 17.565 cm/s SSM CV FUJ I PACS TAPSE 3.532 1.7 cm SSM CV FUJ I PACS RVOT pk [place] 0.92 m/s SSM CV F UJI PACS RA area 25.062 cm2 SSM CV FUJ I PACS AV mn grad 20 mmHg SSM CV FU JI PACS AV pk grad 38 mmHg SSM CV FU JI PACS AV mn [place] 2.11 m/s SSM CV FUJ I PACS AV pk [place] 3.09 m/s SSM CV FUJ I PACS AV VTI 76.057 cm SSM CV FUJ I PACS LVOT pk grad 8.863 mmHg SSM CV FUJI PACS LVOT VTI 42.086 cm SSM CV RUST I PACS AV area cont VTI 2.1 cm2 SSM CV FUJI PACS AV area pk [place] 1.8 cm2 SSM C V RUSTI PACS AV Doppler [place] index pk [place] 0.482 SSM CV RUSTI PACS Dimensionless Index 0.553 SSM CV FUJI PACS AV PHT 11,183 ms SSM CV FUJ I PACS AV pk [place] regurg 233.456 cm/s SSM CV FUJI PACS MV mn grad 3 mmHg SSM CV FU JI PACS MV pk grad 6 mmHg SSM CV FU JI PACS MV mn [place] 0.77 m/s SSM CV RUST I PACS MV pk [place] 126.224 cm/s SSM CV FUJ I PACS MV PHT 87 ms SSM CV RUST I PACS MV area PHT 2.54 cm2 SSM CV F UJI PACS MV area cont eq 4.06 cm2 SSM CV FUJI PACS MV VTI 39.27 cm SSM CV FUJ I PACS RVOT mn grad 2 mmHg SSM CV FUJI PACS RVOT pk grad 3 mmHg SSM CV FUJI PACS PV mn grad 3 mmHg SSM CV FU JI PACS PV pk [place] 114.246 cm/s SSM CV FUJ I PACS PV pk grad 5 mmHg SSM CV FU JI PACS PV VTI 27.633 cm SSM CV FUJ I PACS PV mn [place] 77.445 cm/s SSM CV FUJ I PACS Ascending aorta 4.02 cm SSM CV FUJI PACS IVC size 1.7 cm SSM CV FUJ I PACS LA ESV A4C MOD Index 43 ml/m2 SSM CV FUJI PACS LA ESV A2C MOD Index 57 ml/m2 SSM CV FUJI PACS LRLVA0IR 7.755 cm SSM CV FUJ I PACS [id number] 8.795 cm SSM CV FUJ I PACS Prox Asc Ao Diameter Index 2.01 cm SSM CV FUJI PACS AR VTI 146.15 SSM CV FUJ I PACS AV decel slope regurg 5.989 cm/s2 SSM CV FUJI PACS LVIDs index 1.67 1.3 - 2.1 cm/m2 SSM CV FUJI PACS LV LVIDd index 2.31 2.2 - 3.0 cm/m2 SSM CV FUJI PACS Anatomical Region Laterality Modality Ultrasound Narrative 11/01/2023 8:37 AM CDT Left Ventricle: Left ventricle is severely dilated. [...] Right Atrium: Right atrium is mildly dilated. Left Ventricle Left ventricle is severely dilated. [...] structure is normal. No regurgitation. No stenosis. Ascending Aorta Normal sized sinus of Valsalva (aortic root). Mildly enlarged ascending aorta. Ascending Aorta is 4.02 cm. Pericardium Small pericardial effusion present. Study Details Study quality was good. A complete 2D, color Doppler, spectral Doppler and M- mode echocardiogram was performed. The apical, parasternal, subcostal and suprasternal views were obtained. Patient exhibited sinus rhythm. Procedure Note Neelam Toth MD - 11/01/2023 Left Ventricle: Left ventricle is severely dilated. Normal wallthickness. Ventricular mass is normal. Normal systolic function. EF by 2DSimpson biplane is 69%. Normal wall motion. Diastolic function isindeterminate. Aorta: Normal sized sinus of Valsalva (aortic root). Mildly enlargedascending aorta. Ascending Aorta is 4.02 cm. Pericardium: Small pericardial effusion present. Aortic Valve: Valve structure is trileaflet. Mildly calcified leaflets.Mild regurgitation. Mild stenosis. AV mean gradient is 20 mmHg. AV area bypeak velocity is 1.8 cm2. Left Atrium: Left atrium is severely dilated. Right Atrium: Right atrium is mildly dilated. Jonathan Bea MD ECHO CUPID * (ABNORMAL) TRIGLYCERIDES BLOOD (10/31/2023 3:55 AM CDT) Triglycerides 244(H) <150 mg/dL 10/31/2023 4:32 AM CDT [facility] Comment: ATP III Classification of Triglycerides: <150 mg/dL: Normal 150 - 199 mg/dL: Borderline High 200 - 400 mg/dL: High >500 mg/dL: Very High Blood BLOOD SPECIMEN / Unknown Venipuncture / Unknown 10/31/2023 3:55 AM CDT 10/31/2023 4:02 AM CDT Leroy June MD LAB - CHEM ISTRY ORDERABLES [place] [phone], [facility] [phone] * (ABNORMAL) LEVETIRACETAM LEVEL (10/29/2023 8:44 PM CDT) Only the most recent of2 resultswithin the time period is included. Levetiracetam 56(H) 10 - 40 ug/mL 11/01/2023 12:03 PM CDT [employer] ([facility]) Comment: INTERPRETIVE INFORMATION: Keppra (Levetiracetam) Therapeutic Range: 10-40 ug/mL Toxic: Not well Established Pharmacokinetics of levetiracetam are affected by renal function. Adverse effects may include somnolence, weakness, headache and vomiting. This levetiracetam (Keppra) immunoassay uses the [employer] reagents, which has known cross-reactivity with the drug brivaracetam (Briviact) and may report inaccurate results. Patients transitioning from levetiracetam to brivaracetam or those who are using both medications should not monitor drug concentrations with the [employer] assay. These patients should be monitored using a validated chromatographic methodology that distinguishes between drugs to determine drug concentrations. Performed By: [employer] [address] [place] [address] Shower Maid: Eugene Richmond MD, PhD CLIA Number: [id number] Blood BLOOD SPECIMEN / Unknown Capillary / Unknown 10/29/2023 8:44 PM CDT 10/29/2023 8:50 PM CDT B[place] Austin DO LAB - THERAPEUTIC DR LYNN MONITORING ORDERABLES [facility] [employer] [facility]) [address] * AMMONIA (10/29/2023 8:44 PM CDT) Only the most recent of3 resultswithin the time period is included. Pathologist [facility] Ammonia 71 <=72 umol/L 10/29/2023 9:17 PM T [facility] Blood BLOOD SPECIMEN / Unknown Capillary / Unknown 10/29/2023 8:44 PM CDT 10/29/2023 8:51 PM CDT Leroy June MD LAB - CHEM ISTRY ORDERABLES [facility] [address] [place] [phone], [facility] [phone] * (ABNORMAL) BLOOD GASES ART + COOX PANEL (10/29/2023 8:33 PM CDT) Only the most recent of2 resultswithin the time period is included. pH Arterial 7.40 7.35 - 7.45 pH 10/29/2023 8:52 PM [facility] pO2 Arterial 94 80 - 100 mmHg 10/29/2023 8:52 PM [facility] pCO2 Arterial 33(L) 35 - 45 mmHg 8:52 PM [facility] HCO3 Arterial 20.4 20.0 - 30.0 mmol/L 10/29/2023 8:52 PM [facility] BE Arterial -3.7(L) -2.0 - 2.0 mmol/L 10/29/2023 8:52 PM [facility] Oxyhemoglobin Arterial 95.8 % 10/29/2023 8:52 PM [facility] Dexoyhemoglobin (HHB) % <1.0 % 10/29/2023 8:52 PM [facility] Methemoglobin <0.8 0.0 - 2.0 % 10/29/2023 8:52 PM [facility] Carboxyhemoglobin 2.8(H) 0.0 - 2.0 % 2023 8:52 PM [facility] O2 Content Arterial 15.9 Interpret within clinical context ml/dL 10/29/2023 8:52 PM [facility] Hemoglobin by COOX 11.7(L) 12.0 - 17.6 g/dL 10/29/2023 8:52 PM CDT [facility] O2 Saturation Arterial 99 90 - 100 % 10/29/2023 8:52 PM CDT [facility] FI O2 Arterial 50.0 % 10/29/2023 8:52 PM CDT [facility] Blood, arterial ARTERIAL BLOOD SPECIMEN / Unknown Arterial Puncture / Unknown 10/29/2023 8:33 PM CDT 10/29/2023 8:42 PM CDT Narrative [facility] - 10/29/2023 8:52 PM CDT Carboxyhemoglobin Normal Concentration: Non-smokers: 0-2%; Smokers: 0-9%; Toxic: >20% Leroy June MD LAB - BLOO D GASES ORDERABLES [facility] [address] [place] [phone], [facility] [phone] * XR ABDOMEN KUB PORTABLE (10/29/2023 7:07 PM CDT) Only the most recent of2 resultswithin the time period is included. Anatomical Region Laterality Modality Abdomen Radiographic Cindy ging 10/30/2023 8:34 AM CDT Narrative 10/30/2023 9:07 AM CDT PROCEDURE: XR ABDOMEN KUB PORTABLE, DATE/TIME OF EXAM: 10/29/2023 7:07 PM, LOCATION [facility] INDICATION: N18.6: ESRD on dialysis (HCC) Z99.2: ESRD on dialysis (HCC) ADDITIONAL CLINICAL INFORMATION: Ordering Provider Reason For Exam: confirm enteral tube placement Technologist Note: Additional: COMPARISON: Abdomen radiograph from 07/20/2021. FINDINGS/IMPRESSION: Enteric tube tip and side port are within the stomach. Report dictated by Lindsey Olivera MD I, Lonny Liz MD have personally reviewed and interpreted this examination/study. > Interpreting Provider: Lonny Liz MD on 10/30/2023 9:07 AM Procedure Note Lonny Liz MD - 10/30/2023 PROCEDURE: XR ABDOMEN KUB PORTABLE, DATE/TIME OF EXAM: 10/29/2023 7:07PM, LOCATION [facility] INDICATION: N18.6: ESRD on dialysis (HCC) Z99.2: ESRD on dialysis (HCC) ADDITIONAL CLINICAL INFORMATION: Ordering Provider Reason For Exam: confirm enteral tube placement Technologist Note: Additional: COMPARISON: Abdomen radiograph from 07/20/2021. FINDINGS/IMPRESSION: Enteric tube tip and side port are within the stomach. Report dictated by Lindsey Olivera MD I, Lonny Liz MD have personally reviewed and interpreted this examination/study. > Interpreting Provider: Lonny Liz MD on 10/30/2023 9:07 AM Leroy June MD DIAGNOSTIC IMAGING ORDERABLES * XR CHEST 1VW PORTABLE (10/29/2023 7:07 PM CDT) Only the most recent of4 resultswithin the time period is included. Anatomical Region Laterality Modality Chest Radiographic Cindy ging 10/30/2023 8:24 AM CDT Narrative 10/30/2023 9:08 AM CDT PROCEDURE: XR CHEST 1VW PORTABLE, DATE/TIME OF EXAM: 10/29/2023 7:07 PM, LOCATION [facility] INDICATION: N18.6: End stage renal disease (HCC) K74.60: Cirrhosis of liver with ascites, unspecified hepatic cirrhosis type (HCC) R18.8: Cirrhosis of liver with ascites, unspecified hepatic cirrhosis type (HCC) ADDITIONAL CLINICAL INFORMATION: Ordering Provider Reason For Exam: confirm ETT after placement Technologist Note: Additional: COMPARISON: Chest radiograph from 10/29/2023 at 8:57 AM FINDINGS/IMPRESSION: *Endotracheal tube terminates 2.2 cm proximal to the chaz. *NG tube extends below the diaphragm. *Vascular stent overlies the left upper arm/left axilla. Bilateral interstitial opacities likely representing pulmonary edema. No pleural effusion or pneumothorax. Cardiomediastinal silhouette is enlarged. > Dictated by Lindsey Olivera MD I, Lonny Liz MD have personally reviewed and interpreted this examination/study. > Interpreting Provider: Lonny Liz MD on 10/30/2023 9:08 AM Procedure Note Lonny Liz MD - 10/30/2023 PROCEDURE: XR CHEST 1VW PORTABLE, DATE/TIME OF EXAM: 10/29/2023 7:07PM, LOCATION [facility] INDICATION: N18.6: End stage renal disease (HCC) K74.60: Cirrhosis of liver with ascites, unspecified hepatic cirrhosistype (HCC) R18.8: Cirrhosis of liver with ascites, unspecified hepatic cirrhosistype (HCC) ADDITIONAL CLINICAL INFORMATION: Ordering Provider Reason For Exam: confirm ETT after placement Technologist Note: Additional: COMPARISON: Chest radiograph from 10/29/2023 at 8:57 AM FINDINGS/IMPRESSION: *Endotracheal tube terminates 2.2 cm proximal to the chaz. *NG tube extends below the diaphragm. *Vascular stent overlies the left upper arm/left axilla. Bilateral interstitial opacities likely representing pulmonary edema. No pleural effusion or pneumothorax. Cardiomediastinal silhouette isenlarged. > Dictated by Lindsey Olivera MD I, Lonny Liz MD have personally reviewed and interpreted this examination/study. > Interpreting Provider: Lonny Liz MD on 10/30/2023 9:08 AM Leroy June MD DIAGNOSTIC IMAGING ORDERABLES * CT HEAD WO CONTRAST (10/29/2023 6:15 PM CDT) Only the most recent of2 resultswithin the time period is included. Anatomical Region Laterality Modality Head Computed Tomogra phy 10/29/2023 6:16 PM CDT Impressions 10/29/2023 6:38 PM CDT IMPRESSION: 1.No acute intracranial hemorrhage, midline shift, or significant mass effect. 2.Please note that CT is insensitive to nonhemorrhagic strokes and MRI of the brain should be considered if there is clinical concern for acute cerebral infarction.. Report dictated by Sandi Deutsch MD (physician president). Kristin Silva MD have personally reviewed and interpreted this examination/study. > Interpreting Provider: Kristin Davidson MD on 10/29/2023 6:38 PM Narrative 10/29/2023 6:38 PM CDT PROCEDURE: CT HEAD WO CONTRAST, DATE/TIME OF EXAM: 10/29/2023 6:15 PM, LOCATION [facility] INDICATION: N18.6: ESRD on dialysis (HCC) Z99.2: ESRD on dialysis (HCC) R56.9: Seizures (HCC) EXAMINATION: Computed tomography (CT) of the head without contrast ADDITIONAL CLINICAL INFORMATION: Ordering Provider Reason For Exam: AMS Technologist Note: None. Additional: None. TECHNIQUE: CT of the head was performed without contrast according to standard protocol. CT dose reduction technique was used, including Automated Exposure Control. COMPARISON: CT of the head from 08/09/2021. FINDINGS: No acute intra- or extra-axial fluid collections are identified. Effacement of the sulci could be a normal variant however may represent subtle brain edema, in the appropriate clinical setting. The ventricles are of stable size, shape, and morphology. The basilar cisterns are patent. No mass effect or midline shift is seen. The grace-white matter differentiation is normal. Periventricular white matter hypoattenuation is indicative of chronic small vessel ischemic disease. There is vascular calcification of the carotid siphons. No acute calvarial fracture is identified. Other than bilateral cataract extractions, the orbits appear normal. There is mild paranasal sinus disease. The mastoid air cells are grossly clear. There is a small lipoma in the right occipital scalp. No soft tissue abnormality is otherwise identified. Procedure Note Kristin Davidson MD - 10/29/2023 PROCEDURE: CT HEAD WO CONTRAST, DATE/TIME OF EXAM: 10/29/2023 6:15 PM, LOCATION [facility] INDICATION: N18.6: ESRD on dialysis (HCC) Z99.2: ESRD on dialysis (HCC) R56.9: Seizures (HCC) EXAMINATION: Computed tomography (CT) of the head without contrast ADDITIONAL CLINICAL INFORMATION: Ordering Provider Reason For Exam: AMS Technologist Note: None. Additional: None. TECHNIQUE: CT of the head was performed without contrast according to standard protocol. CT dose reduction technique was used, including Automated Exposure Control. COMPARISON: CT of the head from 08/09/2021. FINDINGS: No acute intra- or extra-axial fluid collections are identified.Effacement of the sulci could be a normal variant however may represent subtlebrain edema, in the appropriate clinical setting. The ventricles are of stable size, shape, and morphology. The basilar cisterns are patent. No mass effect or midline shift is seen. The grace-white matter differentiationis normal. Periventricular white matter hypoattenuation is indicative of chronic small vessel ischemic disease. There is vascular calcificationof the carotid siphons. No acute calvarial fracture is identified. Otherthan bilateral cataract extractions, the orbits appear normal. There is mild paranasal sinus disease. The mastoid air cells are grossly clear. Thereis a small lipoma in the right occipital scalp. No soft tissue abnormalityis otherwise identified. IMPRESSION: 1.No acute intracranial hemorrhage, midline shift, or significant mass effect. 2.Please note that CT is insensitive to nonhemorrhagic strokes and MRIof the brain should be considered if there is clinical concern for acute cerebral infarction.. Report dictated by Sandi Deutsch MD (physician president). I, Kristin Davidson MD have personally reviewed and interpretedthis examination/study. > Interpreting Provider: Kristin Davidson MD on 10/29/2023 6:38 PM Leroy June MD CT ORDERAB LES * (ABNORMAL) RENAL FUNCTION PANEL (10/29/2023 6:03 PM CDT) BUN 101(H) 7 - 26 mg/dL 10/29/2023 6:55 PM [facility] Creatinine 11.41(H) 0.71 - 1.16 mg/dL 10/29/2023 6:55 PM [facility] Sodium 138 136 - 145 mmol/L 10/29/2023 6:55 PM [facility] Potassium 4.4 3.5 - 4.5 mmol/L 10/29/2023 6:55 PM [facility] Chloride 99 98 - 107 mmol/L 10/29/2023 6:55 PM [facility] CO2 19(L) 22 - 29 mmol/L 10/29/2023 6:55 PM [facility] Glucose 99 70 - 115 mg/dL 10/29/2023 6:55 PM [facility] Albumin 3.6 3.4 - 5.0 g/dL 10/29/2023 6:55 PM CDT [facility] Calcium 9.1 8.4 - 10.2 mg/dL 10/29/2023 6:55 PM CDT [facility] Phosphorus 4.6 2.8 - 5.1 mg/dL 10/29/2023 6:55 PM CDT [facility] Anion Gap 20(H) 6 - 16 10/29/2023 6:55 PM T [facility] BUN/Creatinine Ratio 9 7 - 23 10/29/2023 6:55 PM T [facility] Osmolality Calculated 318(H) 275 - 295 mOsm/kg 10/29/2023 6:55 PM T [facility] eGFR by CKD-EPI 5(L) >=90 mL/min/1.7 3 m2 10/29/2023 6:55 PM CDT [facility] Blood BLOOD SPECIMEN / Unknown Venipuncture / Unknown 10/29/2023 6:03 PM CDT 10/29/2023 6:12 PM CDT Hany Whyte MD LAB - CHEMISTRY ORDE ANASTACIO [facility] [address] [place] [id number], [facility] [phone] * (ABNORMAL) LACTIC ACID BLOOD (10/29/2023 6:03 PM CDT) Only the most recent of4 resultswithin the time period is included. Lactic Acid-Stat 2.1(H) <=2.0 mmol/L 10/29/2023 6:32 PM CDT [facility] Blood BLOOD SPECIMEN / Unknown Venipuncture / Unknown 10/29/2023 6:03 PM CDT 10/29/2023 6:12 PM CDT Leroy June MD LAB - CHEM ISTRY ORDERABLES [facility] [address] [place] [phone], [place] [phone] * HEPATITIS B SURFACE ANTIBODY QUANT (10/29/2023 2:04 PM CDT) Only the most recent of3 resultswithin the time period is included. Hepatitis B Virus Surface Antibody 928.78 IU/L 10/31/2023 10:23 AM CDT [employer] ([facility]) Comment: The anti-HBs is greater than or equal to 10 IU/L. This patient has either had an antibody response to HBV vaccination, received a transfusion, or has recovered from HBV infection. This patient should be considered immune to hepatitis B. An anti-HBs result greater than or equal to 10 IU/L indicates immunity. Reference Interval: anti-HBs 9.99 IU/L or less ....... Negative 10.00 IU/L or greater ... Positive Results greater than 1,000.00 IU/L are reported as greater than 1,000.00 IU/L. This assay should not be used for blood donor screening, associated re-entry protocols, or for screening Human Cell, Tissues and Cellular and Tissue-Based Products (HCT/P). Performed By: [employer] [address] [place] [address] Shower Maid: Eugene Richmond MD, PhD CLIA Number: [id number] Blood BLOOD SPECIMEN / Unknown Venipuncture / Unknown 10/29/2023 2:04 PM CDT 10/29/2023 2:04 PM CDT Hossein Perla MD LAB - SEROLOGY ORDER MALI[facility] [employer] [facility]) [address] [place] [address], [facility] * XR CHEST 2VW (10/29/2023 9:01 AM CDT) Only the most recent of4 resultswithin the time period is included. Anatomical Region Laterality Modality Chest Radiographic Cindy ging 10/29/2023 9:02 AM CDT Impressions 10/29/2023 10:29 AM CDT IMPRESSION: Mild cardiomegaly and a small right-sided pleural effusion.. Cardiomegaly is new since 12/26/2022. Mild bibasilar opacities, atelectasis versus mild airspace disease such as pneumonia. Report dictated by Seven Rivas MD (physician president). I, Elzbieta Woodard MD have personally reviewed and interpreted this examination/study. > Interpreting Provider: Elzbieta Woodard MD on 10/29/2023 10:29 AM Narrative 10/29/2023 10:29 AM CDT PROCEDURE: XR CHEST 2VW, DATE/TIME OF EXAM: 10/29/2023 9:01 AM, LOCATION [facility] INDICATION: R53.81: Malaise ADDITIONAL CLINICAL INFORMATION: Ordering Provider Reason For Exam: missed dialysis COMPARISON: Chest radiograph 12/26/2022 TECHNIQUE: Frontal and lateral radiographs of the chest. FINDINGS: Mild basilar opacities likely representing atelectasis, although mild pneumonia may contribute to this appearance. There is also a small right-sided pleural effusion, best appreciated on the lateral radiograph. Otherwise no dense airspace consolidation, left-sided pleural effusion, or pneumothorax. The cardiac silhouette is mildly enlarged, new since 12/26/2022. The mediastinal silhouette is normal. The aorta is atherosclerotic. The visible bony thorax is intact. Procedure Note Elzbieta Woodard MD - 10/29/2023 PROCEDURE: XR CHEST 2VW, DATE/TIME OF EXAM: 10/29/2023 9:01 AM, LOCATION [facility] INDICATION: R53.81: Malaise ADDITIONAL CLINICAL INFORMATION: Ordering Provider Reason For Exam: missed dialysis COMPARISON: Chest radiograph 12/26/2022 TECHNIQUE: Frontal and lateral radiographs of the chest. FINDINGS: Mild basilar opacities likely representing atelectasis, although mild pneumonia may contribute to this appearance. There is also a small right-sided pleural effusion, best appreciated on the lateralradiograph. Otherwise no dense airspace consolidation, left-sided pleural effusion,or pneumothorax. The cardiac silhouette is mildly enlarged, new since 12/26/2022. The mediastinal silhouette is normal. The aorta is atherosclerotic. Thevisible bony thorax is intact. IMPRESSION: Mild cardiomegaly and a small right-sided pleural effusion..Cardiomegaly is new since 12/26/2022. Mild bibasilar opacities, atelectasis versus mild airspace disease suchas pneumonia. Report dictated by Seven Rivas MD (physician president). I, Elzbieta Woodard MD have personally reviewed and interpreted this examination/study. > Interpreting Provider: Elzbieta Woodard MD on 10/29/2023 10:29 AM Hany Whyte MD DIAGNOSTIC IMAGING O RDERABLES * SARS-COV-2 (COVID-19)+INFLU A+B PCR RAPID (10/29/2023 8:37 AM CDT) Only the most recent of2 resultswithin the time period is included. COVID-19 PCR Not detected Not detected 10/29/19 9:28 AM CDT [facility] Influenza A Rapid BRENNA Not Detected Not Detected 10/29/2023 9:28 AM CDT [facility] Influenza B BRENNA Rapid Not Detected Not Detected 10/29/2023 9:28 AM T [facility] Microbiology SPECIMEN FROM NASOPHARYNGEAL STRUCTURE / Unknown Collection / Unknown 10/29/2023 8:37 AM CDT 10/29/2023 8:42 AM CDT [facility] - 10/29/2023 9:28 AM CDT Influenza assay performed by Nucleic Acid Ampl[employer]. Results do not exclude the possibility of a mixed viral infection. NOTE: Detecting and identifying specific viral nucleic acids from individuals exhibiting signs and symptoms of respiratory infection aids in the diagnosis of respiratory infection, if used in conjunction with other clinical and laboratory findings. The results of this test should not be used as the sole basis for diagnosis, treatment, or patient management decisions. This nucleic acid amplification assay performance was validated by [facility]. This test has been authorized by the Food and Drug administration (FDA)under an Emergency Use Authorization (EUA). This test has been validated in accordance with the FDA's guidance document Policy for Diagnostic Testing in Laboratories Certified to perform High Complexity Testing under CLIA prior to Emergency Use Authorization for Coronavirus Disease-2019 during the Public Health Emergency issued on August 30, 2019. FDA independent review of this validation is pending. This test is only authorized for the duration of time the declaration that circumstances exist justifying the authorization of emergency use of in vitro diagnostic tests for detection of SARS-CoV-2 virus and/or diagnosis of COVID-19 infection under section 564(b)(1) of the Act, 21 U.S.C 360bbb-3 (b)(1), unless the authorization is terminated or revoked sooner. Fact Sheets for this EUA assay are available upon request. Hany Whyte MD LAB - MICROBIOLOGY O RDERAAMIRA Performing Organization Address [facility]/ZIP Co de Phone Number [address] [address], [facility] [phone] * LACTIC ACID BLOOD REFLEX TO REPEAT (10/29/2023 8:36 AM CDT) Lactic Acid-Stat 1.6 <=2.0 mmol/L 10/29/2023 9:08 AM CDT [facility] Blood BLOOD SPECIMEN / Unknown Venipuncture / Unknown 10/29/2023 8:36 AM CDT 10/29/2023 8:45 AM CDT Hany Whyte MD LAB - CHEMISTRY FREDO CHAVES Performing Organization Address [facility] Co de Phone Number [address] [address], [facility] [phone] * LIPASE BLOOD (10/29/2023 8:36 AM CDT) Lipase 73 8 - 78 U/L 10/29/2023 9:35 AM CDT [facility] Blood BLOOD SPECIMEN / Unknown Venipuncture / Unknown 10/29/2023 8:36 AM CDT 10/29/2023 8:45 AM CDT Narrative [facility] - 10/29/2023 9:35 AM CDT Lipase results from the Ricardo Alinity analyzer may not be comparable with other methodologies. Hany Whyte MD LAB - CHEMISTRY FREDO CHAVES Performing Organization Address City/[facility]/ZIP Co de Phone Number [address] [address], [place] [phone] * ALCOHOL ETHYL BLOOD (10/29/2023 8:36 AM CDT) Only the most recent of5 resultswithin the time period is included. Ethanol (mg/dL) <10 <10 mg/dL 9:35 AM T [facility] Ethanol Calculated (g/dL) <0.010 <=0.010 g/dL 10/29/2023 9:35 AM T [facility] Blood BLOOD SPECIMEN / Unknown Venipuncture / Unknown 10/29/2023 8:36 AM CDT 10/29/2023 8:45 AM CDT Narrative [facility] - 10/29/2023 9:35 AM CDT Ethanol Interp <10: None Detected. Depression of INFORMATION MANAGER: >100 mg/dl Potentially Critical: >250 mg/dl Potentially Fatal >400 mg/dl Ethanol in the patient's blood will contribute to the osmolar gap. Ethanol's contribution to the osmolar gap can be estimated by dividing the concentration of ethanol in mg/dL by 4.6. This test is for clinical use only and does not equal a GRADY for legal purposes. Hany Whyte MD LAB - CHEMISTRY FREDO CHAVES [facility] Organization Address City/State/ZIP Co de Phone Number [address] [address], [facility] [phone] * EGD (09/13/2023 7:49 AM CDT) Report Endoscopy POC Endoscopy Department Report _ Patient Name: Dominga Cuello Procedure Date: 09/13/2023 7:49 AM Date of : 1965 Classification: Outpatient Gender: Male Ethnicity: Not or Race: White _ Providers: Melecio Graves Referring MD: Dm Pena (Referring MD) Procedure: Upper GI endoscopy Indications: 1st degree variceal surveillance (known small varices, no prior bleeding) Medications: Propofol per Anesthesia, See the Anesthesia note for documentation of the administered medications Description of Procedure: Pre-Anesthesia Assessment: - Pre-procedure physical examination revealed no contraindications to sedation. - After reviewing the risks and benefits, the patient was deemed in satisfactory condition to undergo the procedure. - The anesthesia plan was to use monitored anesthesia care (MAC). - Immediately prior to administration of medications, the patient was re-assessed for adequacy to receive sedatives. After obtaining informed consent, the endoscope was passed under direct vision. Throughout the procedure, the patient's blood pressure, pulse, and oxygen saturations were monitored continuously. The Endoscope was introduced through the mouth, and advanced to the second part of duodenum. The upper GI endoscopy was accomplished without difficulty. The patient tolerated the procedure well. Findings: The Z-line was regular and was found 42 cm from the incisors. Grade I, small (< 5 mm) varices were found in the lower third of the esophagus. Moderate portal hypertensive gastropathy was found in the entire examined stomach. The examined duodenum was normal. Estimated Blood Loss: Estimated blood loss: none. Complications: No immediate complications. Impression: - Z-line regular, 42 cm from the incisors. - Grade I and small (< 5 mm) esophageal varices. - Portal hypertensive gastropathy. - Normal examined duodenum. - No specimens collected. Recommendation: - Patient has a contact number available for emergencies. The signs and symptoms of potential delayed complications were discussed with the patient. Return to normal activities tomorrow. Written discharge instructions were provided to the patient. - Discharge patient to home (ambulatory). - Resume previous diet. - Continue present medications. - Repeat upper endoscopy in 1 year for surveillance. - Return to liver clinic. - The findings and recommendations were discussed with the patient. Attending Participation: I personally performed the entire procedure. Procedure Code(s): --- Professional --- 02782, Esophagogastroduod enoscopy, flexible, transoral; diagnostic, including collection of specimen(s) by brushing or washing, when performed (separate procedure) Diagnosis Code(s): --- Professional --- I85.00, Esophageal varices without bleeding K76.6, Portal hypertension K31.89, Other diseases of stomach and duodenum CPT copyright 2021 [employer]. All rights reserved. The codes documented in this report are preliminary and upon rhinestone setter review may be revised to meet current compliance requirements. Melecio Graves, 09/13/2023 9:33:26 AM Note Initiated On: 09/13/2023 7:49 AM Number of Addenda: [id number] [place] [address] PROVATION 09/13/2023 7:49 AM CDT Melecio Graves MD GI PROCEDURE ORDERAB LES [facility] PROVATION * US ABDOMEN LIMITED (06/20/2023 11:00 AM TREE PULLER) Anatomical Region Laterality Modality Abdomen Ultrasound 06/20/2023 1:28 PM TREE P[facility]ER Impressions 06/20/2023 3:40 PM TREE PULLER Impression: 1.Liver Visualization Score A: No or minimal limitations. 2.US-1 Negative. Repeat surveillance US in 6 months. 3.Hepatic cirrhosis with sequelae of portal hypertension, including marked splenomegaly, ascites, mildly dilated main portal vein. 4.Cholelithiasis with negative sonographic Bro's sign. Gallbladder wall is mildly thickened, nonspecific, likely secondary to chronic hepatic parenchymal disease. 5.Nonobstructing right nephrolithiasis. 6.Increased echogenicity and cortical thinning of the right kidney consistent with chronic renal medical disease. Report drafted by Dylon Amos MD (resident). > Dictated by Dylon Amos MD (Coffee Grower) 06/20/2023 1:28 PM IBianca MD have personally reviewed and interpreted this examination/study. > Interpreting Provider: Bianca Espinosa MD on 06/20/2023 3:40 PM Narrative 06/20/2023 3:40 PM TREE PULLER PROCEDURE: US ABDOMEN LIMITED, DATE/TIME OF EXAM: 06/20/2023 11:08 AM, LOCATION [facility] INDICATION: K70.30: Alcoholic cirrhosis of liver without ascites (CMS-HCC) COMPARISON: MRI abdomen 12/26/2022 Findings Liver Visualization Score: No or minimal limitations in liver visualization Liver Morphology: The liver has a coarse echotexture and nodular surface. Liver Observations: None. Main Portal Vein: Main portal vein is mildly dilated measuring up to 1.6 cm with appropriate directional of flow. Hepatic Veins: Color Doppler evaluation demonstrates patency of the hepatic veins. Bile Ducts: The common bile duct is nondilated, measuring 5 mm. No intrahepatic or extrahepatic biliary dilation. Gallbladder: Gallstones are seen within the gallbladder without pericholecystic fluid. The gallbladder wall is mildly thickened measuring 4 mm. Sonographic Bro's sign is negative. Ascites: Small volume ascites is present. Spleen: Marked enlargement of the spleen measuring 23.6 cm. Pancreas: The pancreas is obscured by overlying bowel gas. Right Kidney: The right kidney measures 9.6 cm in length. Multiple nonobstructing calculi are noted within the right kidney. Increased echogenicity of the right kidney with cortical thinning consistent with chronic renal medical disease. Other: Small volume ascites is present. Procedure Note Joan Espinosa MD - 06/20/2023 PROCEDURE: US ABDOMEN LIMITED, DATE/TIME OF EXAM: 06/20/2023 11:08 AM, LOCATION [facility] INDICATION: K70.30: Alcoholic cirrhosis of liver without ascites (CMS-HCC) COMPARISON: MRI abdomen 12/26/2022 Findings Liver Visualization Score: No or minimal limitations in liver visualization Liver Morphology: The liver has a coarse echotexture and nodular surface. Liver Observations: None. Main Portal Vein: Main portal vein is mildly dilated measuring up to 1.6 cm withappropriate directional of flow. Hepatic Veins: Color Doppler evaluation demonstrates patency of the hepatic veins. Bile Ducts: The common bile duct is nondilated, measuring 5 mm. No intrahepatic or extrahepatic biliary dilation. Gallbladder: Gallstones are seen within the gallbladder without pericholecysticfluid. The gallbladder wall is mildly thickened measuring 4 mm. Sonographic Bro's sign is negative. Ascites: Small volume ascites is present. Spleen: Marked enlargement of the spleen measuring 23.6 cm. Pancreas: The pancreas is obscured by overlying bowel gas. Right Kidney: The right kidney measures 9.6 cm in length. Multiple nonobstructingcalculi are noted within the right kidney. Increased echogenicity of the right kidney with cortical thinning consistent with chronic renal medical disease. Other: Small volume ascites is present. Impression: 1.Liver Visualization Score A: No or minimal limitations. 2.US-1 Negative. Repeat surveillance US in 6 months. 3.Hepatic cirrhosis with sequelae of portal hypertension, includingmarked splenomegaly, ascites, mildly dilated main portal vein. 4.Cholelithiasis with negative sonographic Bro's sign. Gallbladderwall is mildly thickened, nonspecific, likely secondary to chronic hepatic parenchymal disease. 5.Nonobstructing right nephrolithiasis. 6.Increased echogenicity and cortical thinning of the right kidney consistent with chronic renal medical disease. Report drafted by Dylon Amos MD (resident). > Dictated by Dylon Amos MD (Coffee Grower) 06/20/2023 1:28 PM IBianca MD have personally reviewed and interpreted this examination/study. > Interpreting Provider: Bianca Espinosa MD on 06/20/2023 3:40 PM Melecio Graves MD US ORDERABLES * EEG EXTENDED MONITORING > 1 HOUR (05/22/2023 11:59 PM TREE PULLER) Narrative Pawan Kevin MD - 05/22/2023 11:59 PM TREE PULLER Pawan Kevin MD 05/23/2023 1:00 PM EEG REPORT Patient Name: Dominga Cuello EEG#: [id number] Start Time: 09:49 AM 05/22/2023 Stop Time: 10:51 AM 05/22/2023 Clinical History: Dominga Cuello is a 57 year old male with seizures. This EEG is ordered for seizures. Current medications Current Outpatient Medications Medication Sig amLODIPine (Norvasc) 5 MG tablet Take 1 (one) tablet by mouth once daily (Patient not taking: Reported on 11/29/2022) levETIRAcetam (Keppra) 750 MG tablet Take 1 (one) tablet by mouth 2 times daily melatonin 3 MG tablet Take 5 mg by mouth nightly as needed for Insomnia (takes 10 mg prn) multivitamin daily tablet Take 1 tablet by mouth once daily (Patient not taking: Reported on 11/29/2022) nadolol (CORGARD) 20 MG tablet Take 1 (one) tablet by mouth once daily pantoprazole EC (PROTONIX) 40 MG tablet Take 1 tablet by mouth once daily renal vitamin (Nephrocaps; Renal) 1 MG capsule Take 1 (one) capsule by mouth once daily sevelamer carbonate (Renvela) 800 MG Take 1 (one) tablet by mouth 3 times daily with meals sildenafil (Viagra) 50 MG tablet Take 1 (one) tablet by mouth once as needed No current facility-administered medications for this encounter. Description This is an extended, greater than 1-hour, 21-channel EEG tracing consisting of 20 channels of EEG obtained from electrodes placed on the scalp according to the international 10-20 system, T1 and T2 electrodes, and one channel of EKG monitoring. Background The awake background consisted of a posterior dominant rhythm up of 10 Hz of normal amplitude. Stage 1 sleep was identified in the forms of background attenuation, roving eye movements, and vertex waves. Stage 2 sleep was identified in the form of spindles. Hyperventilation and photic stimulation were performed and elicited no abnormalities. EKG was observed throughout the recording. IMPRESSION This is a normal awake and asleep extended EEG. Pawan Kevin MD Catherine Colon [facility] FREDO CHAVES * DRUG ABUSE URINE PANEL 9 W RFLX TO CONFIRM (05/03/2023 8:28 AM CDT) [facility] Amphetamines Urine Screen Negative Cutoff 300 ng/mL 05/04/2023 12:53 PM CDT [facility] ([facility]) Barbiturates Urine Screen Negative Cutoff 200 ng/mL 05/04/2023 12:53 PM CDT [facility] ([facility]) Benzodiazepines Urine Screen Negative Cutoff 200 ng/mL 05/04/2023 12:53 PM CDT [facility] ([facility]) THC Urine Screen Negative Cutoff 50 ng/mL 05/04/2023 12:53 PM CDT [facility] ([facility]) Cocaine Urine Screen Negative Cutoff 150 ng/mL 05/04/2023 12:53 PM CDT [facility] ([facility]) Methadone Urine Screen Negative Cutoff 150 ng/mL 05/04/2023 12:53 PM CDT [facility] ([facility]) Comment: INTERPRETIVE INFORMATION: Methadone, Urn, Screen EFFECTIVE 04/02/2023 METHADONE REAGENT AND CUTOFF CHANGE Due to reagent kit home extension agent extended backorder, an alternate kit has been validated and implemented by [facility]. This test kit detects EDDP, the metabolite of methadone. The following cutoff applies to this result: <100 ng/mL Negative >=100 ng/mL Presumptive Positive for EDDP Opiates Urine Negative Cutoff 300 ng/mL 05/04/2023 12:53 PM CDT [facility] ([facility]) Phencyclidine Urine Screen Negative Cutoff 25 ng/mL 05/04/2023 12:53 PM CDT [facility]) Propoxyphene Urine Screen Negative Cutoff 300 ng/mL 05/04/2023 12:53 PM CDT [facility]) Creatinine Urine 61.9 20.0 - 400.0 mg/dL 05/04/2023 12:53 PM CDT [facility]) CDASU 9 COMMENTS See Note 05/04/20 12:53 PM CDT [facility] ([facility]) Comment: INTERPRETIVE INFORMATION: Drug Panel 9, Urn, Scrn w/Rflx to Conf The absence of expected drug(s) and/or drug metabolite(s) may indicate non-compliance, inappropriate timing of specimen collection relative to drug administration, poor drug absorption, diluted/adulterated urine, or limitations of testing. The concentration at which the screening test can detect a drug or metabolite varies within a drug class. Specimens for which drugs or drug classes are detected by the screen are reflexed to a second, more specific technology (GC/MS and/or LC-MS/MS). The concentration value must be greater than or equal to the cutoff to be reported as positive. Interpretive questions should be directed to the laboratory. Oxycodone results are reported with the opiates results. MDMA results are reported with the amphetamines results. The following opioids are not detected in this test: fentanyl, buprenorphine, meperidine, tramadol, and tapentadol. A comprehensive panel that includes these opioids is available or individual opioid testing can be ordered. Refer to [facility] for test information. For medical purposes only; not valid for forensic use. Performed By: [facility] [facility] [address] [place] [address] Shower Maid: Eugene Richmond MD, PhD CLIA Number: [id number] Urine URINE / Unknown Collection / Unknown 05/03/2023 8:28 AM CDT 05/03/2023 8:34 AM CDT Melecio Graves MD LAB - URINE CHEMISTR Y ORDERABLES Performing Organization Address [facility] de Phone Number [facility]) [address] [place] [address] * FOFANA/SUPERINTENDENT HOUSE (FRANCESCA) ANTIBODY IGG (04/26/2023 9:46 AM CDT) Pathologist [facility] Fofana/SUPERINTENDENT HOUSE (FRANCESCA) Antibody IgG 2 0 - 19 Units 04/28/2023 9:44 AM CDT [facility] ([facility]) Comment: INTERPRETIVE INFORMATION: Fofana/SUPERINTENDENT HOUSE (FRANCESCA) Antibody, IgG 19 Units or Less ............. Negative 20 to 39 Units ............... Weak Positive 40 to 80 Units ............... Moderate Positive 81 Units or greater .......... Strong Positive Fofana/SUPERINTENDENT HOUSE antibodies are frequently seen in patients with mixed connective tissue disease (MCTD) and are also associated with other systemic autoimmune rheumatic diseases (SARDs) such as systemic lupus erythematosus (SLE), systemic sclerosis, and myositis. Antibodies targeting the Fofana/SUPERINTENDENT HOUSE antigenic complex also recognize Fofana antigens, therefore, the Fofana antibody response must be considered when interpreting these results. Performed By: [employer] [facility] [address] [place] [address] Shower Maid: Eugene Richmond MD, PhD CLIA Number: [id number] Blood BLOOD SPECIMEN / Unknown Lab Venipuncture / Unknown 04/26/2023 9:46 AM CDT 04/26/2023 10:05 AM CDT Sameera Fitzgerald MD LAB - CHEMISTRY ORDE ANASTACIO Performing Organization Address [facility] Co de Phone Number [facility] [employer] [facility]) [address] * BILL ONLY THROMBIN TIME (04/26/2023 9:45 AM CDT) Only the most recent of2 resultswithin the time period is included. Lab Bill Only Tests For Interface Bill Only 04/28/2023 8:27 PM CDT [facility] [employer] ([facility]) Blood BLOOD SPECIMEN / Unknown Lab Venipuncture / Unknown 04/26/2023 9:45 AM CDT 04/26/2023 10:06 AM CDT Melecio Graves MD LAB - COAGULATION OR DERABLES Performing Organization Address [facility] de Phone Number [facility]) [address] [place] [address] * BILL ONLY PTT-D 1:1 MIX (04/26/2023 9:45 AM CDT) Only the most recent of2 resultswithin the time period is included. Lab Bill Only Tests For Interface Bill Only 04/28/2023 8:27 PM CDT [facility]) Blood BLOOD SPECIMEN / Unknown Lab Venipuncture / Unknown 04/26/2023 9:45 AM CDT 04/26/2023 10:06 AM CDT Melecio Graves MD LAB - COAGULATION OR DERABLES Performing Organization Address City/[facility] de Phone Number [facility]) [address] [place] [address] * COMPLEMENT ACTIVITY TOTAL (CH50) (04/26/2023 9:45 AM CDT) Complement Activity Total CH50 44.8 38.7 - 89.9 U/mL 04/27/2023 9:52 PM CDT [facility] [employer] [facility]) Comment: Normal activity in total complement functional assay (CH50) suggests normal presence and function of complement components, C1-C9. However, normal CH50 result can also occur in the presence of low levels of complement components due to excess presence of complement proteins in human serum. If clinically indicated, measurement of individual complement components is recommended. Normal CH50 result with low complement alternate pathway functional (AH50, test code [id number]) activity suggests defects in the alternate pathway. REFERENCE INTERVAL: Complement Activity Total, (CH50) 38.6 U/mL or less ..........Low 38.7-89.9 U/mL .............Normal 90.0 U/mL or greater .......High Performed By: [facility] [facility] [address] [place] [address] Shower Maid: Eugene Richmond MD, PhD CLIA Number: [id number] Blood BLOOD SPECIMEN / Unknown Lab Venipuncture / Unknown 04/26/2023 9:45 AM CDT 04/26/2023 10:05 AM CDT Sameera Fitzgerald MD LAB - CHEMISTRY FREDO CHAVES [facility] Organization Address City/State/ZIP Co de Phone Number [facility] ([facility]) [address] [place] [address] * (ABNORMAL) ANTIPHOSPHOLIPID ANTIBODY PANEL (04/26/2023 9:45 AM CDT) Only the most recent of2 resultswithin the time period is included. Pathologist [facility] Cardiolipin Antibody IgG <10 <=14 GPL 04/28/2023 7:27 PM CDT [facility] ([facility]) Comment: INTERPRETIVE INFORMATION: Anti-Cardiolipin IgG Ab <=14 GPL: Negative 15-19 GPL: Indeterminate 20-80 GPL: Low to Moderately Positive 81 GPL or above: High Positive The persistent presence of IgG and/or IgM cardiolipin (CL) antibodies in moderate or high levels (greater than 40 GPL and/or greater than 40 MPL units) is a laboratory criterion for the diagnosis of antiphospholipid syndrome (APS). Persistence is defined as moderate or high levels of IgG and/or IgM CL antibodies detected in two or more specimens drawn at least 12 weeks apart (J Throm Haemost. 2006;4:295-306). Lower positive levels of IgG and/or IgM CL antibodies (above cutoff but less than 40 GPL and/or less than 40 MPL units) may occur in patients with the clinical symptoms of APS; therefore, the actual significance of these levels is undefined. Results should not be used alone for diagnosis and must be interpreted in light of APS-specific clinical manifestations and/or other criteria phospholipid antibody tests. Cardiolipin Antibody IgM <10 <=12 MPL 04/28/2023 7:27 PM [facility] ([facility]) Comment: INTERPRETIVE INFORMATION: Anti-Cardiolipin IgM <=12 MPL: Negative 13-19 MPL: Indeterminate 20-80 MPL: Low to Moderately Positive 81 MPL or above: High Positive The persistent presence of IgG and/or IgM cardiolipin (CL) antibodies in moderate or high levels (greater than 40 GPL and/or greater than 40 MPL units) is a laboratory criterion for the diagnosis of antiphospholipid syndrome (APS). Persistence is defined as moderate or high levels of IgG and/or IgM CL antibodies detected in two or more specimens drawn at least 12 weeks apart (J Throm Haemost. 2006;4:295-306). Lower positive levels of IgG and/or IgM CL antibodies (above cutoff but less than 40 GPL and/or less than 40 MPL units) may occur in patients with the clinical symptoms of APS; therefore, the actual significance of these levels is undefined. Results should not be used alone for diagnosis and must be interpreted in light of APS-specific clinical manifestations and/or other criteria phospholipid antibody tests. Beta-2 Glycoprotein Antibody IgG <10 <=20 SGU 04/28/2023 7:27 PM [facility] ([facility]) Beta-2 Glycoprotein Antibody IgM <10 <=20 SMU 04/28/2023 7:27 PM [facility] ([facility]) Comment: INTERPRETIVE INFORMATION: [id number] I, IgG and IgM Antibody The persistent presence of IgG and/or IgM beta 2 glycoprotein I (B2GPI) antibodies is a laboratory criterion for the diagnosis of antiphospholipid syndrome (APS). Persistence is defined as moderate or high levels of IgG and/or IgM B2GPI antibodies detected in two or more specimens drawn at least 12 weeks apart (J Throm Haemost. 2006;4:295-306). B2GPI results greater than 20 SGU (IgG) and/or SMU (IgM) are considered positive based on the cutoff values established for this test. International reference materials and consensus units for anti-B2GPI antibodies have not been established (Clin Soumya Acta. 2012;413(1-2):358-60; Arthritis Rheum. 2012;64(1):1-10.); results can be variable between different commercial immunoassays and cannot be compared. Strong clinical correlation is recommended for a diagnosis of APS. Low positive IgG and IgM B2GPI antibody levels should be interpreted in light of APS-specific clinical manifestations and/or other criteria phospholipid antibody tests. PT (Lupus Anticoag) 17.1(H) 12.0 - 15.5 sec 04/28/2023 7:27 PM CDT [facility] ([facility]) PTT Lupus Anticoagulant 57(H) 32 - 48 sec 04/28/2023 7:27 PM CDT [facility] ([facility]) Thrombin Time 19.2 14.7 - 19.5 sec 04/28/2023 7:27 PM CDT [facility] ([facility]) Reptilase Time Not Applicable <=21.9 sec 04/28/2023 7:27 PM CDT [facility] ([facility]) PTT Heparin Neutralized Not Applicable 32 - 48 sec 04/28/2023 7:27 PM CDT [facility]) PTT 1/1 Mix 42 32 - 48 sec 04/28/2023 7:27 PM CDT [facility]) Platelet Neutralization Not Applicable Negative 04/28/2023 7:27 PM CDT [facility]) dRVVT 38 33 - 44 sec 04/28/2023 7:27 PM CDT [facility]) dRVVT 1:1 Mix Not Applicable 33 - 44 sec 04/28/2023 7:27 PM CDT [facility]) dRVVT Confirmatory Test Not Applicable Negative ratio 04/28/2023 7:27 PM CDT [facility] ([facility]) Hexagonal Phospholipid Neutral Not Applicable Negative 04/28/2023 7:27 PM CDT [facility] ([facility]) Interpretation Lupus Anticoagulant See Note 04/28/2023 7:27 PM CDT [facility] ([facility]) Comment: Lupus anticoagulant not detected. The PTT is prolonged and corrects in a 1:1 mix with pooled normal plasma, indicating a possible factor deficiency. However, correction in a 1:1 mix can also occur with weak inhibitors that are diluted in the mixing study. Lupus anticoagulant antibodies are heterogeneous and antibody titers fluctuate over time. Laboratory tests used to identify lupus anticoagulants demonstrate variable sensitivity. If there is strong clinical suspicion for antiphospholipid antibody syndrome (APS), consider testing for cardiolipin and beta-2 glycoprotein 1 antibodies (IgG and IgM) if this testing has not already been performed. Performed By: [facility] [employer] [address] [place] [address] Shower Maid: Eugene Richmond MD, PhD CLIA Number: [id number] Blood BLOOD SPECIMEN / Unknown Lab Venipuncture / Unknown 04/26/2023 9:45 AM CDT 04/26/2023 10:06 AM CDT Melecio Graves MD LAB - SEROLOGY ORDER MALIHA [facility]) [address] [place] [address], [facility] * FOFANA (SM) ANTIBODY FRANCESCA (04/26/2023 9:45 AM CDT) [facility] Fofana (FRANCESCA) Antibody 6 0 - 40 AU/mL 04/29/2023 12:42 AM CDT [facility] [employer] ([facility]) Comment: INTERPRETIVE INFORMATION: Fofana (FRANCESCA) Antibody, IgG 29 AU/mL or Less ............. Negative 30 - 40 AU/mL ................ Equivocal 41 AU/mL or Greater .......... Positive Fofana antibody is highly specific (greater than 90 percent) for systemic lupus erythematosus (SLE) but only occurs in 30-35 percent of SLE cases. The presence of antibodies to Fofana has variable associations with SLE clinical manifestations. Performed By: [facility] [address] [place] [address] Shower Maid: Eugene Richmond MD, PhD CLIA Number: [id number] Blood BLOOD SPECIMEN / Unknown Lab Venipuncture / Unknown 04/26/2023 9:45 AM CDT 04/26/2023 10:05 AM CDT Sameera Fitzgerald MD LAB - CHEMISTRY FREDO CHAVES Performing Organization Address City/[facility]/ZIP Co de Phone Number [employer] ([facility]) [address] * DNA ANTIBODY DOUBLE STRANDED (04/26/2023 9:45 AM CDT) dsDNA Antibody 15 0 - 24 IU 04/29/2023 6:20 PM CDT [facility] ([facility]) Comment: INTERPRETIVE INFORMATION: Double-Stranded DNA (dsDNA) Ab IgG ELICEO 24 IU or less........Negative 25-30 IU.............Borderline Positive 30-60 IU.............Low Positive 60-200 IU............Positive 201 IU or greater....Strong Positive Positivity for anti-double stranded DNA (anti-dsDNA) IgG antibody is a diagnostic criterion of systemic lupus erythematosus (SLE). Specimens are initially screened by enzyme-linked immunosorbent assay (ELICEO). If ordered as reflex ([id number]), positive ELICEO results (>24 IU) will be reflexed to a highly specific IFA titer (Crithidia luciliae indirect fluorescent test [ABIGAIL') for confirmation. Some patients with early or inactive SLE may be positive for anti-dsDNA IgG by ELICEO but negative by ABIGAIL. If the patient is negative by ABIGAIL but positive by ELICEO and clinical suspicion remains, consider antinuclear antibody (VELIA) testing by IFA. Additional information and recommendations for testing may be found at [email or web address]. Performed By: [facility] [facility] [address] [place] [address] Shower Maid: Eugene Richmond MD, PhD CLIA Number: [id number] Blood BLOOD SPECIMEN / Unknown Lab Venipuncture / Unknown 04/26/2023 9:45 AM CDT 04/26/2023 10:05 AM CDT Sameera Fitzgerald MD LAB - HEMATOLOGY JAYMIE SOTO Performing Organization Address City/[facility]/ZIP Co de Phone Number [employer] ([facility]) [address] * COMPLEMENT C4 (04/26/2023 9:45 AM CDT) Only the most recent of2 resultswithin the time period is included. [facility] Complement C4 17 15 - 57 mg/dL 04/26/2023 10:32 AM CDT [facility] Blood BLOOD SPECIMEN / Unknown Lab Venipuncture / Unknown 04/26/2023 9:45 AM CDT 04/26/2023 10:07 AM CDT Sameera Fitzgerald MD LAB - SEROLOGY ORDER MALIHA Performing Organization Address City/[facility]/ZIP Co de Phone Number [facility] [address] [place] [address], [place] [phone] * (ABNORMAL) COMPLEMENT C3 (04/26/2023 9:45 AM CDT) Only the most recent of2 resultswithin the time period is included. [facility] Complement C3 74(L) 82 - 193 mg/dL 04/26/2023 10:32 AM CDT [facility] Blood BLOOD SPECIMEN / Unknown Lab Venipuncture / Unknown 04/26/2023 9:45 AM CDT 04/26/2023 10:07 AM CDT Sameera Fitzgerald MD LAB - CHEMISTRY ORDE ANASTACIO Performing Organization Address City/[facility]/ZIP Co de Phone Number [facility] [address] [place] [address], [place] [phone] * VAS CAROTID DUPLEX BILATERAL (02/13/2023 10:18 AM CDT) Anatomical Region Laterality Modality Neck Intravascular Ul trasound 02/13/2023 9:41 AM CDT Narrative Procedure Note Patric Dave MD - 02/13/2023 Melecio Graves MD VASCULAR LAB ORDERAB LES * BILL ONLY REPTILASE TIME (01/29/2023 11:02 AM CDT) Pathologist [facility] Lab Bill Only Tests For Interface Bill Only 01/31/2023 2:06 PM CDT [facility] ([facility]) Blood BLOOD SPECIMEN / Unknown Lab Venipuncture / Unknown 01/29/2023 11:02 AM CDT 01/29/2023 11:16 AM CDT Melecio Graves MD LAB - COAGULATION OR DERABLES Performing Organization Address City/[facility] Co de Phone Number [facility] ([facility]) [address] * BILL ONLY HEPARIN NEUTRALIZATION (01/29/2023 11:02 AM CDT) Lab Bill Only Tests For Interface Bill Only 01/31/2023 2:06 PM CDT [facility] ([facility]) Blood BLOOD SPECIMEN / Unknown Lab Venipuncture / Unknown 01/29/2023 11:02 AM CDT 01/29/2023 11:16 AM CDT Melecio Graves MD LAB - COAGULATION OR DERABLES Performing Organization Address City/[facility] de Phone Number [facility] ([facility]) [address] * IR ANGIO AV SHUNT IMAGING (01/16/2023 1:25 PM CDT) Only the most recent of2 resultswithin the time period is included. Anatomical Region Laterality Modality Lower Extremity, Upper Extremity, Chest X-Ray Angiography Narrative 01/16/2023 1:10 PM CDT Livia Mcdonald MD 01/16/2023 1:12 PM VASCULAR AND INTERVENTIONAL RADIOLOGY EXAMINATION: DIALYSIS FISTULAGRAM Date: 01/16/2023 History: Dominga Cuello is a 57 year old male with history of hypertension and end-stage renal disease who dialyzes through a left upper arm arteriovenous graft. The patient complains of intermittent prolonged bleeding upon decannulation and difficulty with cannulation for the last 2 weeks. He does not complain of inadequate dialysis once needles are placed or left upper extremity swelling. Fistulagram is requested. Of note, the patient has chronic thrombocytopenia secondary to cirrhosis. Diagnosis code: N18.6, Z99.2 Fluoroscopy time: 0.38 minutes. Absorbed patient dose: 5.07 mGy. Contrast amount: 20 mL Isovue-300. Technique: The risks, benefits, and alternatives were discussed and informed consent was obtained. Prior to beginning the procedure, universal protocol was performed to confirm the patient's identity and the planned procedure. Maximum sterile barriers including cap, mask, hand hygiene, sterile gloves, sterile gown, large sterile drape, and 2% chlorhexidine for cutaneous antisepsis were used. The skin over the left upper extremity dialysis arteriovenous graft was sterilely prepped, draped, and infiltrated with 1% lidocaine. Antegrade access was obtained within the proximal arterial graft segment using a micropuncture needle set followed by the placement of a 5-Singaporean catheter. Multiple DSA images were obtained to visualize the dialysis access from the arterial anastomosis through the superior vena cava. At the end of the procedure, the 5-Singaporean catheter was removed, manual pressure was held to achieve hemostasis, and a sterile dressing was applied. The patient tolerated the procedure well and without complications. Findings: Images of the dialysis access fail to reveal evidence of focal flow limiting stenosis or thrombus. Brisk flow is present within the dialysis access. There is no focal stenosis of the arterial anastomosis, arteriovenous graft, stented venous anastomosis, left axillary vein, left subclavian vein, left brachiocephalic vein, or superior vena cava. IMPRESSION: Successful dialysis fistulagram failing to reveal evidence of focal flow limiting stenosis or thrombus, as described above. PLAN: The dialysis access is ready for immediate use. Kev Mcdonald M.D. Vascular and Interventional Radiology [facility] [phone] CC: Patient's customer supply chain analyst: Dr. Bashir Norris Dialysis unit: [facility] Bashir Norris MD IR ORDERABLES * CT PELVIS WO CONTRAST (01/15/2023 2:15 PM CDT) Anatomical Region Laterality Modality Pelvis Computed Tomogra phy 01/15/2023 2:24 PM CDT Impressions 01/15/2023 5:28 PM CDT Impression: 1.Moderate diffuse atherosclerotic calcifications, no significant calcifications of the external iliac arteries. Report drafted by Alexander Rogel (resident) I, Chad Renner MD have personally reviewed and interpreted this examination/study. > Interpreting Provider: Chad Renner MD on 01/15/2023 5:28 PM Narrative 01/15/2023 5:28 PM CDT PROCEDURE: CT PELVIS WO CONTRAST, DATE/TIME OF EXAM: 01/15/2023 2:16 PM, LOCATION [facility] INDICATION: Z01.818: Pre-transplant evaluation for liver transplant K74.60: Cirrhosis of liver with ascites, unspecified hepatic cirrhosis type (CMS/HCC) R18.8: Cirrhosis of liver with ascites, unspecified hepatic cirrhosis type (CMS/HCC) Z99.2: Dependence on renal dialysis (CMS/HCC) N18.5: Stage 5 chronic kidney disease (CMS/HCC) Z01.818: Encounter for pre-transplant evaluation for kidney transplant N0 ADDITIONAL CLINICAL INFORMATION: Ordering Provider Reason For Exam: SLK evaluation EXAMINATION: Computed tomography (CT) of the pelvis without contrast TECHNIQUE: CT of the pelvis was performed without contrast according to standard protocol. Clinical Information HISTORY: Z01.818: Pre-transplant evaluation for liver transplant K74.60: Cirrhosis of liver with ascites, unspecified hepatic cirrhosis type (CMS/HCC) R18.8: Cirrhosis of liver with ascites, unspecified hepatic cirrhosis type (CMS/HCC) Z99.2: Dependence on renal dialysis (CMS/HCC) N18.5: Stage 5 chronic kidney disease (CMS/HCC) Z01.818: Encounter for pre-transplant evaluation for kidney transplant N0 COMPARISON:CT abdomen pelvis dated 02/08/2019 Findings Ureters: Normal. Bowel: Normal caliber. Peritoneum: No ascites or free air; no fluid collection. Partially visualized splenomegaly and abdominal varices Pelvic Structures: Mild fat stranding adjacent to the prostate and bladder is nonspecific. Vessels: There is moderate to severe atherosclerotic calcification of the imaged aorta. There is bilateral mild atherosclerotic calcifications of common iliac arteries. No significant atherosclerotic calcifications of bilateral external iliac arteries. There is moderate atherosclerotic calcifications of bilateral internal iliac arteries. Bones: Normal. Soft tissues: There are fat-containing inguinal hernias bilaterally. Procedure Note Chad Renner MD - 01/15/2023 PROCEDURE: CT PELVIS WO CONTRAST, DATE/TIME OF EXAM: 01/15/2023 2:16PM, LOCATION [facility] INDICATION: Z01.818: Pre-transplant evaluation for liver transplant K74.60: Cirrhosis of liver with ascites, unspecified hepatic cirrhosistype (CMS/HCC) R18.8: Cirrhosis of liver with ascites, unspecified hepatic cirrhosistype (CMS/HCC) Z99.2: Dependence on renal dialysis (CMS/HCC) N18.5: Stage 5 chronic kidney disease (CMS/HCC) Z01.818: Encounter for pre-transplant evaluation for kidney transplant N0 ADDITIONAL CLINICAL INFORMATION: Ordering Provider Reason For Exam: SLK evaluation EXAMINATION: Computed tomography (CT) of the pelvis without contrast TECHNIQUE: CT of the pelvis was performed without contrast according to standard protocol. Clinical Information HISTORY: Z01.818: Pre-transplant evaluation for liver transplant K74.60: Cirrhosis of liver with ascites, unspecified hepatic cirrhosistype (CMS/HCC) R18.8: Cirrhosis of liver with ascites, unspecified hepatic cirrhosistype (CMS/HCC) Z99.2: Dependence on renal dialysis (CMS/HCC) N18.5: Stage 5 chronic kidney disease (CMS/HCC) Z01.818: Encounter for pre-transplant evaluation for kidney transplant N0 COMPARISON:CT abdomen pelvis dated 02/08/2019 Findings Ureters: Normal. Bowel: Normal caliber. Peritoneum: No ascites or free air; no fluid collection. Partially visualized splenomegaly and abdominal varices Pelvic Structures: Mild fat stranding adjacent to the prostate and bladder is nonspecific. Vessels: There is moderate to severe atherosclerotic calcification of the imaged aorta. There is bilateral mild atherosclerotic calcifications of common iliac arteries. No significant atherosclerotic calcifications ofbilateral external iliac arteries. There is moderate atheroscleroticcalcifications of bilateral internal iliac arteries. Bones: Normal. Soft tissues: There are fat-containing inguinal hernias bilaterally. Impression: 1.Moderate diffuse atherosclerotic calcifications, no significant calcifications of the external iliac arteries. Report drafted by Alexander Rogel (resident) I, Chad Renner MD have personally reviewed and interpreted this examination/study. > Interpreting Provider: Chad Renner MD on 01/15/2023 5:28 PM Melecio Graves MD CT ORDERABLES * DEXA BONE DENSITY AXIAL SKELETON (12/26/2022 1:34 PM CDT) Only the most recent of2 resultswithin the time period is included. 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 LEFT FEMORAL NECK: Bone mineral density (g/cm2): 0.779 Current T-score: -1.1 LUMBAR SPINE (L1-L4): Bone mineral density (g/cm2): 1.317 Current T-score: 2.1 BONE DENSITY ASSESSMENT: WHO Category: Osteopenia FRAX CALCULATION: The 10-year risk for a major osteoporotic fracture: 13% The 10-year risk for a hip fracture: 1.2% Please see the PACS images for additional details. World Health Organization definitions of standard deviations relative to the mean T-score: Normal bone density = -1.0 and above Osteopenia = between -1.0 and -2.5 Osteoporosis = -2.5 and below > Dictated by Javier Garrison MD (Coffee Grower) 12/27/2022 1:23 PM ISaqib MD have personally reviewed and interpreted this examination/study. 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 LEFT FEMORAL NECK: Bone mineral density (g/cm2): 0.779 Current T-score: -1.1 LUMBAR SPINE (L1-L4): Bone mineral density (g/cm2): 1.317 Current T-score: 2.1 BONE DENSITY ASSESSMENT: WHO Category: Osteopenia FRAX CALCULATION: The 10-year risk for a major osteoporotic fracture: 13% The 10-year risk for a hip fracture: 1.2% Please see the PACS images for additional details. World Health Organization definitions of standard deviations relative to the mean T-score: Normal bone density = -1.0 and above Osteopenia = between -1.0 and -2.5 Osteoporosis = -2.5 and below > Dictated by Javier Garrison MD (Coffee Grower) 12/27/2022 1:23 PM I, Saqib Montanez MD have personally reviewed and interpreted this examination/study. > Interpreting Provider: Saqib Montanez MD on 12/27/2022 7:37 PM Melecio Graves MD DEXA ORDERABLES * (ABNORMAL) CYTOPLASMIC PATTERN (12/07/2022 1:03 PM CDT) Cytoplasmic Pattern Titer 1:160(A) 12/10/2022 8:26 PM CDT [employer] ([facility]) Cytoplasmic Pattern AMA(A) 12/10/2022 8:26 PM CDT [facility] ([facility]) Comment: Performed By: [employer] [address] [place] [address] Shower Maid: Eugene Richmond MD, PhD Blood BLOOD SPECIMEN / Unknown Lab Venipuncture / Unknown 12/07/2022 1:03 PM CDT 12/07/2022 1:29 PM CDT Melecio Graves MD LAB - CHEMISTRY CROSSETTGerhard [facility] Performing Organization Address [facility] de Phone Number [facility] ([facility]) [address] [place] [address] * (ABNORMAL) VELIA BLOOD SINGLE PATTERN (12/07/2022 1:03 PM CDT) Pathologist [facility] VELIA Pattern Speckled( A) 12/10/2022 8:26 PM CDT [facility] ([facility]) VELIA Titer 1:160(A) 12/10/2022 8:26 PM CDT [facility]) Comment: Performed By: [employer] [address] [place] [address] Shower Maid: Eugene Richmond MD, PhD Blood BLOOD SPECIMEN / Unknown Lab Venipuncture / Unknown 12/07/2022 1:03 PM CDT 12/07/2022 1:29 PM CDT Melecio Graves MD LAB - CHEMISTRY FREDO CHAVES Performing Organization Address [facility] de Phone Number [facility]) [address] [place] [address] * HLA TYPING DNA LOW RESOLUTION DR,DQ (12/07/2022 1:03 PM CDT) Only the most recent of2 resultswithin the time period is included. DR DQ Low Resolution DRB1-1 *01 12/21/2022 11:11 AM CDT [facility] ([facility]) DR DQ Low Resolution DRB1-2 *04 12/21/2022 11:11 AM CDT [facility] ([facility]) DR DQ Low Resolution DQB1-1 *03 (DQ7) 12/21/2022 11:11 AM CDT [facility] ([facility]) DR DQ Low Resolution DQB1-2 *05 12/21/2022 11:11 AM CDT [facility] ([facility]) DR DQ Low Resolution DRB3-1 Negative 12/21/2022 11:11 AM CDT [facility] ([facility]) DR DQ Low Resolution DRB3-2 Negative 12/21/2022 11:11 AM CDT [facility] ([facility]) DR DQ Low Resolution DRB4-1 *01 12/21/2022 11:11 AM CDT [facility] ([facility]) DR DQ Low Resolution DRB4-2 Negative 12/21/2022 11:11 AM CDT [facility] ([facility]) DR DQ Low Resolution DRB5-1 Negative 12/21/2022 11:11 AM CDT [facility] ([facility]) DR DQ Low Resolution DRB5-2 Negative 12/21/2022 11:11 AM CDT [facility] ([facility]) DR DQ Low Resolution Methodology Real Time PCR 12/21/2022 11:11 AM CDT [facility] ([facility]) DR DQ Low Resolution test date [id number] 12/21/2022 11:11 AM CDT [facility] ([facility]) Comment: This test was developed and its performance characteristics determined by the [facility]. It has not been cleared or approved by the U.S. Food and Drug Administration. The FDA has determined that such clearance or approval is not necessary. This test is used for clinical purposes. It should not be regarded as investigational or for research. This laboratory is certified under the Clinical Laboratory Improvement Amendments of 1988 (CLIA-88) as qualified to perform high complexity clinical laboratory testing. CLIA ID# [id number] Performed at: [facility], [address] [place] [phone] Clerk:Dr. Juan Lockwood, PhD, Blood BLOOD SPECIMEN / Unknown Lab Venipuncture / Unknown 12/07/2022 1:03 PM CDT 12/07/2022 1:27 PM CDT Melecio Graves MD LAB - BLOOD BANK ORD ERABLES [facility] ([facility]) [address] [place] [address], [facility] * HLA TYPING DNA LOW RESOLUTION A,B,C (12/07/2022 1:03 PM CDT) Only the most recent of2 resultswithin the time period is included. ABC DNA A1 *02 12/21/2022 11:06 AM CDT [facility] ([facility]) ABC DNA A2 *32 12/21/2022 11:06 AM CDT [facility] ([facility]) ABC DNA B1 *18 12/21/2022 11:06 AM CDT [facility] ([facility]) ABC DNA B2 *44 12/21/2022 11:06 AM CDT [facility] ([facility]) ABC DNA BW1 6 12/21/2022 11:06 AM CDT [facility] ([facility]) ABC DNA BW2 4 12/21/2022 11:06 AM CDT [facility] ([facility]) ABC DNA C1 *05 12/21/2022 11:06 AM CDT [facility] ([facility]) ABC DNA C2 *07 12/21/2022 11:06 AM CDT [facility] ([facility]) ABC DNA Methodology Real Time PCR 12/21/2022 11:06 AM CDT [facility] ([facility]) ABC DNA Test Date [id number] 11:06 AM CDT [facility] ([facility]) Comment: This test was developed and its performance characteristics determined by the [facility]. It has not been cleared or approved by the U.S. Food and Drug Administration. The FDA has determined that such clearance or approval is not necessary. This test is used for clinical purposes. It should not be regarded as investigational or for research. This laboratory is certified under the Clinical Laboratory Improvement Amendments of 1988 (CLIA-88) as qualified to perform high complexity clinical laboratory testing. CLIA ID# [id number] Performed at: [facility], [address] [place] [phone] Clerk:Dr. Juan Lockwood, PhD, Blood BLOOD SPECIMEN / Unknown Lab Venipuncture / Unknown 12/07/2022 1:03 PM CDT 12/07/2022 1:27 PM CDT Melecio Graves MD LAB - BLOOD BANK ORD ERABLES [facility] [address] [place] [address], [facility] * (ABNORMAL) VELIA HEP-2 IGG BY IFA (12/07/2022 1:03 PM CDT) VELIA HEp-2 IgG Detected (H) <1:80 12/10/2022 8:25 PM CDT [facility] ([facility]) VELIA Interpretive Comment See Note 12/10/2022 8:25 PM CDT [facility] ([facility]) Comment: Speckled Pattern Clinical associations: SLE, SSc, SjS, DM, PM, MCTD, UCTD. May also be found in healthy individuals Main autoantibodies: Anti-SSA-52 (Ro52), anti-SSA-60 (Ro60), anti-SS-B/LA, anti-Jaime-1 (anti-Scl-70), Fofana, anti-U1-SUPERINTENDENT HOUSE, anti-U2-SUPERINTENDENT HOUSE, anti-Mi-2, anti-p155/140 (TIF1g), anti-Ku, anti-RNA polymerase, anti-DFS70/LEDGF-P75 Cytoplasmic reticular/AMA pattern Clinical Associations: PBC, SSc, PBC-SSc overlap syndrome, and PBC-SjS overlap syndrome Main autoantibodies: Anti-mitochondrial antibody List of Abbreviations Antisynthetase syndrome (ARS), chronic active hepatitis (CAH), inflammatory myopathies (IM) [dermatomyositis (DM), polymyositis (PM), necrotizing autoimmune myopathy (NAM)], interstitial lung disease (ILD), juvenile idiopathic arthritis (ARIANE), mixed connective tissue disease (MCTD), primary biliary cholangitis (PBC), rheumatoid arthritis (RA), systemic autoimmune rheumatic diseases (SARD), Sjogren syndrome (SjS), systemic lupus erythematosus (SLE), systemic sclerosis (SSc), undifferentiated connective tissue disease (UCTD). INTERPRETIVE INFORMATION: VELIA Interpretive Comment Presence of antinuclear antibodies (VELIA) is a hallmark feature of systemic autoimmune rheumatic diseases (SARD). However, VELIA lacks diagnostic specificity and is associated with a variety of diseases (cancers, autoimmune, infectious, and inflammatory conditions) and may also occur in healthy individuals in varying prevalence. The lack of diagnostic specificity requires confirmation of positive VELIA by more specific serologic tests. VELIA (nuclear reactivity) positive patterns reported include centromere, homogeneous, nuclear dots, nucleolar, or speckled. VELIA (cytoplasmic reactivity) positive patterns reported include reticular/AMA, discrete/GW body-like, polar/golgi-like, cytoplasmic speckled or rods and rings. All positive patterns are reported to endpoint titers (1:2560). Reported patterns may help guide differential diagnosis, although they may not be specific for individual antibodies or diseases. Mitotic staining patterns not reported. Negative results do not necessarily rule out SARD. Performed By: [employer] [address] [id number] Shower Maid: Eugene Richmond MD, PhD Blood BLOOD SPECIMEN / Unknown Lab Venipuncture / Unknown 12/07/2022 1:03 PM CDT 12/07/2022 1:29 PM CDT Melecio Graves MD LAB - SEROLOGY ORDER MALIHA [facility] [facility]) [address] [place] [address], [facility] * SMOOTH MUSCLE ANTIBODY W REFLEX TITER (12/07/2022 1:03 PM CDT) F-Actin Antibody IgG 11 0 - 19 Units 12/09/2022 1:05 AM CDT [facility] [employer] ([facility]) Comment: If F-Actin (Smooth Muscle) Antibody, IgG is negative, the Smooth Muscle Antibody titer by IFA is not performed. REFERENCE INTERVAL: F-Actin (Smooth Muscle) Antibody, IgG by ELICEO 19 Units or less ....... Negative 20 - 30 Units .......... Weak Positive-Suggest repeat testing in two to three weeks with fresh specimen. 31 Units or greater..... Positive-Suggestive of autoimmune hepatitis type 1 or chronic active hepatitis. F-actin IgG antibodies have been shown to have increased sensitivity for autoimmune hepatitis (AIH) but lower specificity than smooth muscle antibodies (SMA). F-actin IgG antibodies can also be seen in SMA-negative disease controls (non-AIH), especially in patients with primary biliary cirrhosis and chronic hepatitis C infections. Some patients with AIH may be SMA-positive but negative for F-actin IgG. Consider testing for SMA by IFA if suspicion for AIH is strong. Performed By: [employer] [address] [place] [address] Shower Maid: Eugene Richmond MD, PhD Blood BLOOD SPECIMEN / Unknown Lab Venipuncture / Unknown 12/07/2022 1:03 PM CDT 12/07/2022 1:28 PM CDT Melecio Graves MD LAB - SEROLOGY ORDER MALIHA [facility] [employer] [facility]) [address] [place] [address] * (ABNORMAL) OXALATE BLOOD (12/07/2022 1:03 PM CDT) Oxalate 18.0(H) <=2.0 umol/L 12/11/2022 9:48 PM CDT [facility] [employer] ([facility]) Comment: INTERPRETIVE INFORMATION: Oxalate, Plasma This test was developed and its performance characteristics determined by [employer]. It has not been cleared or approved by the US Food and Drug Administration. This test was performed in a CLIA certified laboratory and is intended for clinical purposes. Performed By: [employer] [address] [place] [address] Shower Maid: Eugene Richmond MD, PhD Blood BLOOD SPECIMEN / Unknown Lab Venipuncture / Unknown 12/07/2022 1:03 PM CDT 12/07/2022 1:21 PM CDT Melecio Graves MD LAB - CHEMISTRY ORDE RABLES [facility]) [address] [place] [address] * MITOCHONDRIAL ANTIBODY SCREEN (12/07/2022 1:03 PM CDT) Only the most recent of2 resultswithin the time period is included. Mitochondrial M2 Antibody 6.1 0.0 - 24.9 Units 12/09/2022 1:06 AM CDT [facility] ([facility]) Comment: REFERENCE INTERVAL: Mitochondrial (M2) Antibody, IgG 20.0 Units or less ......... Negative 20.1 - 24.9 Units........... Equivocal 25.0 Units or greater....... Positive Anti-mitochondrial antibodies (AMA) are thought to be present in 90-95% of patients with primary biliary cholangitis (PBC). However, the frequency of detected antibodies may be cohort or assay dependent, as lower sensitivities have been reported. Not all PBC patients are positive for AMA; some patients may be positive for SP100 and/or GP210 antibodies. A negative result does not rule out PBC. Performed By: [email or web address] [address] [place] [address] Shower Maid: Eugene Richmond MD, PhD Blood BLOOD SPECIMEN / Unknown Lab Venipuncture / Unknown 12/07/2022 1:03 PM CDT 12/07/2022 1:28 PM CDT Melecio Graves MD LAB - CHEMISTRY FREDO CHAVES [facility]) [address] [place] [address] * TSH REFLEX FREE T4 (12/07/2022 1:03 PM CDT) TSH 1.219 0.350 - 4.940 uIU/mL 12/07/2022 2:21 PM CDT [facility] Blood BLOOD SPECIMEN / Unknown Lab Venipuncture / Unknown 12/07/2022 1:03 PM CDT 12/07/2022 1:27 PM CDT Melecio Graves MD LAB - CHEMISTRY FREDO CHAVES [address] [address], [facility] [phone] * [id number]-[id number] BLOOD PHENOTYPING PANEL (12/07/2022 1:03 PM CDT) Only the most recent of2 resultswithin the time period is included. 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 The M allele protein product is a normal variant. The S allele protein product is a deficiency variant that is associated with a less severe deficiency (approximately 60 percent of normal serum concentrations) of the vhmsc-0-bptczcss inhibitor than the classic Z variant (approximately 15 percent of normal serum concentrations). Individuals with this phenotype are rarely at risk for development of xghwk-4-iuampgxg inhibitor deficiency-related hepatic or pulmonary disease. Caution in interpretation is advised if the patient has been transfused in the previous 21 days. Performed By: [employer] [address] [place] [address] Shower Maid: Eugene Richmond MD, PhD Zxpdx-0-Duphdlqyq in 119 90 - 200 mg/dL 12/09/2022 5:32 PM CDT [facility] ([facility]) Comment:To convert to umol/L , multiply mg/dL by 0.185 Blood BLOOD SPECIMEN / Unknown Lab Venipuncture / Unknown 12/07/2022 1:03 PM CDT 12/07/2022 1:30 PM CDT Melecio Graves MD LAB - CHEMISTRY FREDO CHAVES [facility] Organization Address City/State/ZIP Co de Phone Number [facility]) [address] [place] [address] * (ABNORMAL) VELIA BLOOD SCREEN W/REFLEX TITER (12/07/2022 1:03 PM CDT) Only the most recent of2 resultswithin the time period is included. Pathologist [facility] VELIA IgG Detected (A) None Detected 12/08/2022 11:53 PM CDT [facility] ([facility]) Comment: Antibodies to Anti-Nuclear Antibodies (VELIA) detected. Additional testing to follow. INTERPRETIVE INFORMATION: Anti-Nuclear Antibodies (VELIA), IgG by [employer]ICEO Antinuclear Antibodies (VELIA), IgG by [employer]: VELIA specimens are screened using enzyme-linked immunosorbent assay (ELICEO) methodology. All [employer] results reported as Detected are further tested by indirect fluorescent assay (IFA) using HEp-2 substrate with an IgG-specific conjugate. The VELIA [employer] screen is designed to detect antibodies against dsDNA, histones, SS-A (Ro), SS-B (La), Fofana, Fofana/SUPERINTENDENT HOUSE, Scl-70, Bella-1, centromeric proteins, other antigens extracted from the HEp-2 cell nucleus. VELIA ELICEO assays have been reported to have lower sensitivities than VELIA IFA for systemic autoimmune rheumatic diseases (SARD). Negative results do not necessarily rule out SARD. Performed By: [employer] [address] [place] [address] Shower Maid: Eugene Richmond MD, PhD Blood BLOOD SPECIMEN / Unknown Lab Venipuncture / Unknown 12/07/2022 1:03 PM CDT 12/07/2022 1:29 PM CDT Melecio Graves MD LAB - CHEMISTRY ORDGerhard CHAVES Performing Organization Address City/[facility]/ZIP Co de Phone Number [address] * CERULOPLASMIN (12/07/2022 1:03 PM CDT) Only the most recent of2 resultswithin the time period is included. [facility] Ceruloplasmin 25 20 - 60 mg/dL 12/07/2022 2:30 PM CDT [facility] Blood BLOOD SPECIMEN / Unknown Lab Venipuncture / Unknown 12/07/2022 1:03 PM CDT 12/07/2022 1:30 PM CDT Melecio Graves MD LAB - CHEMISTRY FREDO CHAVES [address] [address], [facility] [phone] * G6PD QUANTITATIVE (12/07/2022 1:03 PM CDT) Pathologist [facility] G-6-PD 12.3 9.9 - 16.6 U/g Hb 12/10/2022 2:40 AM CDT [employer] ([facility]) Comment: Performed By: [employer] [address] [place] [address] Shower Maid: Eugene Richmond MD, PhD Blood BLOOD SPECIMEN / Unknown Lab Venipuncture / Unknown 12/07/2022 1:03 PM CDT 12/07/2022 1:21 PM CDT Melecio Graves MD LAB - CHEMISTRY FREDO CHAVES [employer] ([facility]) [address] [place] [address], [facility] * [place] LARYNGOSCOPY,FLEX FIBER,DIAGNOSTIC (11/29/2022 3:49 PM CDT) Narrative Polo Mesa MD - 11/29/2022 3:49 PM CDT Polo Mesa MD 11/29/2022 3:51 PM Procedure Note Anesthesia: Lidocaine 2% and Yohan-Synephrine 1/2% Endoscopy Type: Flexible Mqvov-Iydlbllooiphwd-Uechkrdcqgpj Procedure Details: Informed consent was obtained. The patient was placed in the sitting position. After topical anesthesia and decongestion, the 4 mm laryngoscope was passed. The nasal cavities, nasopharynx, oropharynx, hypopharynx, and larynx were all examined. Vocal cords were examined during respiration and phonation. Findings: -No mucosal lesions seen. Normal vocal cord mobility. Disposition: The patient tolerated procedure well. Complications: None Polo Mesa MD PROCEDURE/MINOR SURG ICAL ORDERABLES * IR CENTRAL LINE REMOVAL (04/11/2022 1:02 PM CDT) Anatomical Region Laterality Modality X-Ray Angiograph y Narrative 04/11/2022 1:08 PM CDT Livia Mcdonald MD 04/11/2022 1:09 PM VASCULAR AND INTERVENTIONAL RADIOLOGY EXAMINATION: TUNNELED CENTRAL VENOUS CATHETER REMOVAL Date: 04/11/2022 History: Dominga Cuello is a 56 year old male with history of hypertension, cirrhosis, thrombocytopenia, and end-stage renal disease who is now successfully dialyzing through a left upper arm arteriovenous graft. The patient does not complain of difficulty with cannulation, inadequate dialysis, or prolonged bleeding upon decannulation. Removal of the patient's right thoracic tunneled hemodialysis catheter is requested. 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 Mohsen Parham Technique: The risks, benefits, and alternatives were discussed and informed consent was obtained. Prior to beginning the procedure, universal protocol was performed to confirm the patient's identity and the planned procedure. Maximum sterile barriers including cap, mask, hand hygiene, sterile gloves, sterile gown, large sterile drape, and 2% chlorhexidine for cutaneous antisepsis were used. The skin adjacent to the right thoracic tunneled catheter entry site was sterilely prepped, draped, and infiltrated with 1% lidocaine. Blunt dissection was then used to free the tunneled hemodialysis catheter cuff. The catheter was removed in its entirety and pressure held at the site to obtain hemostasis. A sterile dressing was applied. The patient tolerated the procedure well and without complications. Findings: The catheter exit site showed no evidence of infection. IMPRESSION: Successful tunneled hemodialysis catheter removal, as described above. Kev Mcdonald M.D. Vascular and Interventional Radiology [facility] [phone] CC: Patient's customer supply chain analyst: Dr. Bashir Norris Dialysis unit: [facility] Bashir Norris MD IR ORDERABLES * ETT LINE PERFORMABLE (02/21/2022 9:00 AM CDT) Narrative Alma Delia Madsen MD - 02/21/2022 9:00 AM CDT Jose Guzman APRN-[employer] [facility] [employer] 02/21/2022 9:00 AM Endotracheal Tube Placement: Patient Location: OR. Intubation Event Date/Time: 02/21/2022 8:06 AM Procedure: intubation (36404). Procedure Section: Sedation: IV sedation. Indications for Airway Management: airway protection Induction: standard IV Patient Position: sniffing Mask Ventilation: easy. Blade Type: Nery Blade Size: 4 Laryngoscopy View: grade 2 (partial cords) Intubation Adjuncts: stylet and cricoid pressure Tube: endotracheal tube Placement: oral Tube type: cuff - inflated Tube Size (FR): 8 Depth of Insertion (CM): 22 Measured From: sarah Cuff volume (mL): 8 Cuff Inflated With: air Number of Attempts: 1. Placement Verified By: direct visualization, bilateral breath sounds, chest auscultation, CO2 monitor and CO2 detector Tube secured with: adhesive tape. Difficult Airway? No. Procedure Start Time: 02/21/2022 8:06 AM. Staff Section Anesthesia Provider: Jose Guzman, HORTICULTURE WORKER-[employer] [employer], Performed the procedure Provider #1: Alma Delia Madsen MD. Alma Delia Madsen MD GENERAL ANESTHESIA O RDERABLES * TRANSFUSE PLATELETS IN ML(S) (02/21/2022 8:31 AM CDT) Alma Delia Madsen MD NURSING - BLOOD PROD TRANSFUSION * TROPONIN I (08/09/2021 1:24 PM [facility]) Only the most recent of5 resultswithin the time period is included. Troponin I 0.030 <0.032 ng/mL 08/09/2021 2:03 PM [facility] Blood BLOOD SPECIMEN / Unknown Venipuncture / Unknown 08/09/2021 1:24 PM [facility] 08/09/2021 1:32 PM [facility] Joey Parra PA-C LAB - CHEMISTRY OR DERABLES [address] [address], [facility] [phone] * MRI BRAIN WO CONTRAST (07/19/2021 9:56 PM [facility]) Anatomical Region Laterality Modality Head Magnetic Resonan ce 07/20/2021 6:40 AM [facility] Impressions 07/20/2021 6:47 AM [facility] IMPRESSION: 1.No evidence of restricted diffusion to suggest an acute infarction. 2.Suspected subtle dilation of the left optic nerve sheaths. Please correlate with fundus examination. 3.Paranasal sinus disease as outlined. This report was electronically signed by KRISTIN DAVIDSON on 07/20/2021 6:47 AM . Narrative 07/20/2021 6:47 AM [facility] MRI BRAIN WO CONTRAST DATE: 07/19/2021 9:56 PM EXAMINATION: Magnetic resonance imaging (MRI) of the brain without contrast HISTORY: R53.1: Weakness. R41.4: Hemineglect. N18.6: ESRD (end stage renal disease). R29.810: Facial droop TECHNIQUE: MRI of the brain was performed without contrast according to standard protocol. COMPARISON: CT of the head and CT angiogram of the head and neck from 07/19/2020 FINDINGS: No evidence of acute or chronic hemorrhage is identified. No evidence of acute cerebral infarction is seen. There is mild cerebral volume loss with associated ex vacuo ventricular dilatation. There is a suspected tiny cavum septum pellucidum. No mass effect or midline shift is seen. Periventricular and subcortical white matter FLAIR hyperintensities likely represent sequelae of chronic small vessel ischemic disease. The corpus callosum and sella appear normal. Cerebellar tonsils are at the level of the foramen magnum. The posterior fossa, brainstem, and craniocervical junction appear normal. Borderline prominence of the right optic nerve sheath is suspected, (series 10, image 7), measuring up to 6 mm. Please correlate with fundus examination. The visualized portions of the orbits otherwise grossly unremarkable. There is significant paranasal sinus disease in the left maxillary sinus where there is severe mucosal thickening and retained secretions with suspected air-fluid level. Mild mucosal thickening in the remaining paranasal sinuses. Mild fluid signal in the right mastoid air cells. Suspected trace fluid signal in the left mastoid air cells The imaged mastoid air cells appear otherwise grossly clear. Normal flow voids are demonstrated in the carotid arteries and basilar artery. The calvarium and visualized cervical spine appear grossly unremarkable. Procedure Note Kristin Davidson MD - 07/20/2021 MRI BRAIN WO CONTRAST DATE: 07/19/2021 9:56 PM EXAMINATION: Magnetic resonance imaging (MRI) of the brain withoutcontrast HISTORY: R53.1: Weakness. R41.4: Hemineglect. N18.6: ESRD (end stagerenal disease). R29.810: Facial droop TECHNIQUE: MRI of the brain was performed without contrast according to standard protocol. COMPARISON: CT of the head and CT angiogram of the head and neck from 07/19/2020 FINDINGS: No evidence of acute or chronic hemorrhage is identified. No evidence of acute cerebral infarction is seen. There is mild cerebral volume losswith associated ex vacuo ventricular dilatation. There is a suspected tiny cavum septum pellucidum. No mass effect or midline shift is seen. Periventricular and subcortical white matter FLAIR hyperintensitieslikely represent sequelae of chronic small vessel ischemic disease. The corpus callosum and sella appear normal. Cerebellar tonsils are at the level of the foramen magnum. The posterior fossa, brainstem, and craniocervical junction appear normal. Borderline prominence of the right optic nerve sheath is suspected, (series 10, image 7), measuring up to 6 mm. Please correlate with fundus examination. The visualized portions of the orbits otherwise grossly unremarkable. There is significant paranasal sinus disease in the left maxillary sinus where there is severe mucosal thickening and retained secretions with suspected air-fluid level. Mild mucosal thickening inthe remaining paranasal sinuses. Mild fluid signal in the right mastoid air cells. Suspected trace fluid signal in the left mastoid air cells The imaged mastoid air cells appear otherwise grossly clear. Normal flowvoids are demonstrated in the carotid arteries and basilar artery. Thecalvarium and visualized cervical spine appear grossly unremarkable. IMPRESSION: 1.No evidence of restricted diffusion to suggest an acute infarction. 2.Suspected subtle dilation of the left optic nerve sheaths. Please correlate with fundus examination. 3.Paranasal sinus disease as outlined. This report was electronically signed by KRISTIN DAVIDSON on07/20/2021 6:47 AM . Nole Sarkar MD MR ORDERABLES * CT ANGIO BRAIN NECK STROKE (07/19/2021 10:45 AM [facility]) Anatomical Region Laterality Modality Head Computed Tomogra phy 07/19/2021 10:4 9 AM [facility] Impressions 07/19/2021 11:30 AM [facility] IMPRESSION: 1.Patent proximal intracranial arteries. 2.Overall slightly decreased number of right MCA distal branches. 3.No significant stenosis of the cervical segments of carotid and vertebral arteries. 4.Focal caliber irregularity in the right distal ICA with linear intraluminal signal abnormality at C1 level. This finding may be artifactual given the presence of streak artifact in this region but focal dissection cannot be excluded. The findings were discussed by Dr. Correa with Dr. Garcia at 11:03 a.m. This report was electronically signed by JAYNE CORREA on 07/19/2021 11:30 AM . Narrative 07/19/2021 11:30 AM [facility] EXAMINATION: CT angiography of the brain CT angiography of the neck HISTORY: Code Stroke TECHNIQUE: CT angiography of the head and neck was obtained after the uneventful administration of 75 mL Isovue 370 intravenous contrast. Three dimensional postprocessing was performed by the technologist and sent to the workstation for review. NASCET criteria was utilized for evaluation of carotid stenosis. COMPARISON: No prior study is available for comparison at the time of this dictation. FINDINGS: Scattered aortic arch calcification is seen. The common and internal carotid arteries are patent bilaterally without hemodynamically significant stenosis. Small calcified plaques are seen at the carotid bulbs bilaterally. There is focal caliber irregularity in the right distal ICA with linear intraluminal signal abnormality C1 level (series 11 image 21). There is streak artifact in this region which limits evaluation but focal dissection cannot be excluded. Intracranial internal carotid arteries demonstrate wall calcification without focal stenosis. The anterior and middle cerebral arteries are patent proximally. However, overall, there are slightly decreased number of right MCA distal branches as compared to the left. There is a normal anterior communicating artery. The vertebral arteries are normal in intracranial and extracranial course. The basilar artery is diminutive in caliber but patent. The posterior cerebral arteries are patent. Both posterior communicating arteries are visualized with origin of bilateral motion picture set grip. There is no aneurysm or other vascular malformation. Neck soft tissue findings: No significant abnormality is noted. Procedure Note Jayne Correa MD - 07/19/2021 EXAMINATION: CT angiography of the brain CT angiography of the neck HISTORY: Code Stroke TECHNIQUE: CT angiography of the head and neck was obtained after the uneventful administration of 75 mL Isovue 370 intravenous contrast.Three dimensional postprocessing was performed by the technologist and sent to the workstation for review. NASCET criteria was utilized for evaluationof carotid stenosis. COMPARISON: No prior study is available for comparison at the time ofthis dictation. FINDINGS: Scattered aortic arch calcification is seen. The common and internal carotid arteries are patent bilaterally without hemodynamically significant stenosis. Small calcified plaques are seen at the carotid bulbs bilaterally. There is focal caliber irregularity in the rightdistal ICA with linear intraluminal signal abnormality C1 level (series 11image 21). There is streak artifact in this region which limits evaluation but focal dissection cannot be excluded. Intracranial internal carotid arteries demonstrate wall calcification without focal stenosis. The anterior and middle cerebral arteries are patent proximally. However, overall, there are slightly decreased number of right MCA distal branches as compared to the left. There is a normal anterior communicating artery. The vertebral arteries are normal in intracranial and extracranialcourse. The basilar artery is diminutive in caliber but patent. The posterior cerebral arteries are patent. Both posterior communicating arteries are visualized with origin of bilateral motion picture set grip. There is no aneurysm or other vascular malformation. Neck soft tissue findings: No significant abnormality is noted. IMPRESSION: 1.Patent proximal intracranial arteries. 2.Overall slightly decreased number of right MCA distal branches. 3.No significant stenosis of the cervical segments of carotid and vertebral arteries. 4.Focal caliber irregularity in the right distal ICA with linear intraluminal signal abnormality at C1 level. This finding may be artifactual given the presence of streak artifact in this region butfocal dissection cannot be excluded. The findings were discussed by Dr. Correa with Dr. Garcia at 11:03a.m. This report was electronically signed by JAYNE CORREA on 07/19/2021 11:30 AM . Noel Sarkar MD CT ORDERABLES * (ABNORMAL) PTT [facility] (07/19/2021 10:42 AM [facility]) Only the most recent of5 resultswithin the time period is included. APTT 39.3(H) 23.0 - 38.4 Seconds 07/19/2021 12:11 PM [facility] Comment:Suggested therapeuti c range for full dose I.V. unfractionated heparin therapy for venous thromboembolism is 71 to 109 seconds. Blood BLOOD SPECIMEN / Unknown Venipuncture / Unknown 07/19/2021 10:42 AM [facility] 07/19/2021 11:08 AM [facility] Noel Sarkar MD LAB - COAGULATION OR DERABLES [address] [address], [facility] [phone] * (ABNORMAL) INR WHOLE BLOOD - POINT OF CARE (IP) STROKE (07/19/2021 10:41 AM [facility]) INR 1.4(H) 0.9 - 1.2 07/19/2021 10:42 AM [facility] Device [id number] 07/19/2021 10:42 AM [facility] Hr Specialist ID [id number] 07/19/2021 10:42 AM [facility] Blood BLOOD SPECIMEN / Unknown 07/19/2021 10:41 AM [facility] 07/19/2021 10:42 AM [facility] Noel Sarkar MD LAB - POINT OF CARE ORDERABLES Performing Organization Address City/[facility]/ZIP Co de Phone Number [address] [address], [facility] [phone] * (ABNORMAL) CREATININE - POCT INTERFACED (07/19/2021 10:41 AM [facility]) [facility] Creatinine POCT 2.81(H) 0.30 - 1.30 mg/dL 07/20/2021 12:51 PM [facility] eGFR 24(L) >60 mL/min/1.7 3 m2 07/20/2021 12:51 PM [facility] Blood BLOOD SPECIMEN / Unknown 07/19/2021 10:41 AM [facility] 07/20/2021 12:51 PM [facility] Noel Sarkar MD LAB - POINT OF CARE ORDERABLES Performing Organization Address [facility]/ZIP Co de Phone Number [address] [address], [facility] [phone] * CT BRAIN - Stroke (07/19/2021 10:36 AM [facility]) Anatomical Region Laterality Modality Head Computed Tomogra phy 07/19/2021 10:4 3 AM [facility] Addenda Addendum by Jayne Correa MD on 07/19/2021 11:07 AM [facility] ORIGINAL REPORT EXAMINATION: Computed tomography (CT) of the head without contrast HISTORY: Code Stroke TECHNIQUE: CT of the head was performed without contrast according to standard protocol. COMPARISON: No prior study is available for comparison at the time of this dictation. FINDINGS: There is subtle hypodensity in the right basal ganglia and possibly insula with effacement of grace-white matter differentiation, most compatible with hyperacute infarct in appropriate clinical setting. There is no acute hemorrhage. There is no hydrocephalus, midline shift or extra-axial fluid collection. There is no other significant parenchymal abnormality. The paranasal sinuses and tympanomastoid cavities are aerated. The orbits are unremarkable. There is no skull fracture. IMPRESSION: 1.Hypodensity in the right basal ganglia and possibly insula with effacement of grace-white matter differentiation, most compatible with hyperacute infarct in appropriate clinical setting. 2.No critical mass effect. No acute hemorrhage. This report was electronically signed by JAYNE CORREA on 07/19/2021 10:47 AM . ADDENDUM #1 The findings were discussed by Dr. Correa with Dr. Garcia at 11:03 a.m. This report was electronically signed by JAYNE CORREA on 07/19/2021 11:04 AM . Impressions 07/19/2021 10:47 AM [facility] IMPRESSION: 1.Hypodensity in the right basal ganglia and possibly insula with effacement of grace-white matter differentiation, most compatible with hyperacute infarct in appropriate clinical setting. 2.No critical mass effect. No acute hemorrhage. This report was electronically signed by JAYNE CORREA on 07/19/2021 10:47 AM . Narrative 07/19/2021 10:47 AM [facility] EXAMINATION: Computed tomography (CT) of the head without contrast HISTORY: Code Stroke TECHNIQUE: CT of the head was performed without contrast according to standard protocol. COMPARISON: No prior study is available for comparison at the time of this dictation. FINDINGS: There is subtle hypodensity in the right basal ganglia and possibly insula with effacement of garce-white matter differentiation, most compatible with hyperacute infarct in appropriate clinical setting. There is no acute hemorrhage. There is no hydrocephalus, midline shift or extra-axial fluid collection. There is no other significant parenchymal abnormality. The paranasal sinuses and tympanomastoid cavities are aerated. The orbits are unremarkable. There is no skull fracture. Procedure Note Jayne Correa MD - 07/19/2021 EXAMINATION: Computed tomography (CT) of the head without contrast HISTORY: Code Stroke TECHNIQUE: CT of the head was performed without contrast according to standard protocol. COMPARISON: No prior study is available for comparison at the time ofthis dictation. FINDINGS: There is subtle hypodensity in the right basal ganglia and possiblyinsula with effacement of grace-white matter differentiation, most compatiblewith hyperacute infarct in appropriate clinical setting. There is no acute hemorrhage. There is no hydrocephalus, midline shift or extra-axialfluid collection. There is no other significant parenchymal abnormality. The paranasal sinuses and tympanomastoid cavities are aerated. Theorbits are unremarkable. There is no skull fracture. IMPRESSION: 1.Hypodensity in the right basal ganglia and possibly insula with effacement of grace-white matter differentiation, most compatible with hyperacute infarct in appropriate clinical setting. 2.No critical mass effect. No acute hemorrhage. This report was electronically signed by JAYNE CORREA on 07/19/2021 10:47 AM . Noel Sarkar MD CT ORDERABLES * IR CENTRAL LINE REPAIR (12/17/2020 2:34 PM CDT) Anatomical Region Laterality Modality X-Ray Angiograph y Narrative 12/17/2020 11:49 PM CDT Kimo Flores MD 12/17/2020 11:54 PM Dominga Cuello [id number] Interventional Nephrology Procedure Date: 12/17/2020 Attending Surgeon and performing the procedure: Kimo Flores MD Scaffold Worker: RT Fernando Medical indication for the procedure: The patient is a 55-year-old man with end-stage renal disease who is dialyzing through a right internal jugular vein tunneled dialysis catheter referred for repair of the arterial extension of the catheter due to a fracture clamp. Procedures Performed: 1. CATHETER PLACEMENT: REPAIR OF TUNNELED OR NON-TUNNELED CVC; [id number] Findings: 1. The clamp of the arterial extension of the right internal jugular vein tunneled dialysis catheter is observed to be fractured. 2. A new arterial extension with a new arterial and clamp was attached to the all the arterial extension of the catheter without complication. Description of the procedure: After informed consent was obtained Dominga Cuello was placed on a stretcher in the recovery [place]. At bedside time-out was performed. Maximum sterile barriers including cap, mask, hand hygiene, sterile gloves, sterile gown, large sterile drape, sterile gel, sterile ultrasound probe cover, and 2% chlorhexidine for cutaneous antisepsis were used. The arterial extension was clamped, cut near the hub with scissors. The fracture arterial clamp was removed and a new arterial extension with an intact clamp was attached and secured. The arterial lumen was then flushed with saline and locked with 3 mL of a 1000 units/milliliter of heparin lock solution. The patient tolerated the procedure well. COMPLICATIONS: No. IMPRESSION: Successful repair of the arterial extension of the right internal jugular vein tunneled dialysis catheter. RECOMMENDATIONS: 1. Keep exit site and dresses dry at all times while using this catheter for dialysis. 2. May access catheter for dialysis. Kimo Flores MD 12/17/2020 11:[address] [facility] VAC [phone] Bashir Norris MD [facility] Bashir Norris MD IR ORDERABLES * SARS-COV-2 (COVID-19) PRE-SURGICAL/PROCEDURE (09/20/2020 4:02 PM CDT) COVID-19 PCR Not detected Not detected 09/20/2020 10:10 PM CDT [facility] MICROBIOLOGY Microbiology SPECIMEN FROM NASOPHARYNGEAL STRUCTURE / Unknown Collection / Unknown 09/20/2020 4:02 PM CDT 09/20/2020 4:03 PM CDT Narrative [facility] - 09/20/2020 10:10 PM CDT This nucleic acid amplification assay performance was validated by [facility]. This test has been authorized by the Food and Drug administration (FDA)under an Emergency Use Authorization (EUA). This test has been validated in accordance with the FDA's guidance document Policy for Diagnostic Testing in Laboratories Certified to perform High Complexity Testing under CLIA prior to Emergency Use Authorization for Coronavirus Disease-2019 during the Public Health Emergency issued on August 30, 2019. FDA independent review of this validation is pending. This test is only authorized for the duration of time the declaration that circumstances exist justifying the authorization of emergency use of in vitro diagnostic tests for detection of SARS-CoV-2 virus and/or diagnosis of COVID-19 infection under section 564(b)(1) of the Act, 21 U.S.C 360bbb-3 (b)(1), unless the authorization is terminated or revoked sooner. Fact Sheets for this EUA assay are available upon request. Dinah Grier APRN-INFORMATION MANAGER LAB - MICROBIOL OGY ORDERABLES [facility]CRO[facility] [address], [place] [address], [facility] [phone] * ETHYL GLUCURONIDE URINE QUAL W/REFLEX (04/19/2020 9:55 AM CDT) Ethyl Glucuronide Screen w/Reflex Urine Positive Cutoff 500 ng/mL 04/21/2020 12:43 AM CDT [employer] ([facility]) Comment: If the screen is positive, then confirmation testing by mass spectrometry will be added. Additional charges will apply. INTERPRETIVE INFORMATION: Ethyl Glucuronide Screen with Reflex to Confirmation, Urine Ethyl glucuronide is a direct metabolite of ethanol and can be detected up to 80 hours in urine after ethanol ingestion. The cutoff for positive by immunoassay is set at 500 ng/mL. A positive result will be confirmed by liquid chromatography tandem mass spectrometry (LC-MS/MS). Test developed and characteristics determined by [employer]. See Compliance Statement B: [email or web address] Performed By: [employer] [address] [place] [address] Shower Maid: Gisela Galan MD Urine URINE SPECIMEN OBTAINED BY CLEAN CATCH PROCEDURE / Unknown Collection / Unknown 04/19/2020 9:55 AM CDT 04/19/2020 10:31 AM CDT Melecio Graves MD LAB - URINE CHEMISTR Y ORDERABLES Performing Organization Address City/[facility]/ZIP Co de Phone Number [employer] ([facility]) [address] [place] [address] * DRUG SCREEN TOX URINE PANEL (04/19/2020 9:55 AM CDT) Only the most recent of2 resultswithin the time period is included. [facility] Amphetamines Screen Urine Negative Negative: < 1000 ng/mL 04/19/2020 11:05 AM T [facility] Barbiturates Screen Urine Negative Negative: < 200 ng/mL 04/19/2020 11:05 AM [facility] Benzodiazepine Screen Urine Negative Negative: < 200 ng/mL 04/19/2020 11:05 AM [facility] Opiates Urine Negative Negative: < 300 ng/mL 04/19/2020 11:05 AM [facility] Cocaine Metabolites Urine Negative Negative: < 300 ng/mL 04/19/2020 11:05 AM [facility] Phencyclidine Screen Urine Negative Negative: < 25 ng/ml 04/19/2020 11:05 AM [facility] Cannabinoids Screen Urine Negative Negative: <50 ng/mL 04/19/2020 11:05 AM [facility] Methadone Screen Urine Negative Negative: < 300 ng/mL 04/19/2020 11:05 AM [facility] Fentanyl Screen Urine Negative Negative: <1.0 ng/mL 04/19/2020 11:05 AM [facility] Urine URINE / Unknown Collection / Unknown 04/19/2020 9:55 AM CDT 04/19/2020 10:31 AM CDT [facility] - 04/19/2020 11:05 AM CDT The Urine Toxicology Screening Panel does not screen for Propoxyphene, Meprobamate, Carisoprodol, Trazodone, ivly-dua-cxchmax medications and/or volatiles (Acetone, Isopropanol, Methanol or Ethylene Glycol). Ethanol, Salicylate, Acetaminophen, Tricyclic Antidepressants and several therapeutic drugs may be individually assayed in serum or plasma specimen. Toxicology testing by the [facility] is an aid to medical diagnosis and treatment of patients. No documented chain of custody was maintained. Results are intended to be used for clinical purposes only. Melecio Graves MD LAB - URINE CHEMISTR Y ORDERABLES [facility] [address] [place] [address], [facility] [phone] * ENDOSCOPY, COLON, DIAGNOSTIC (01/12/2020 3:38 PM CDT) Report Endoscopy POC Endoscopy Department Report _ Patient Name: Dominga Cuello Procedure Date: 01/12/2020 3:38 PM Date [...] entire procedure. Procedure Code(s): --- Professional --- 38549, Esophagogastroduo denoscopy, flexible, transoral; with biopsy, single or multiple Diagnosis Code(s): --- Professional --- I85.00, Esophageal varices without bleeding K31.7, Polyp of stomach and duodenum R13.10, Dysphagia, unspecified CPT copyright 2019 [employer]. All rights reserved. The codes documented in this report are preliminary and upon rhinestone setter review may be revised to meet current compliance requirements. _ Connor Virgen, 01/12/2020 4:25:45 PM Note Initiated On: 01/12/2020 3:38 PM Number of Addenda: 0 [facility] [address] [place] [address] [facility] [employer] 01/12/2020 3:38 PM CDT Connor Chavez MD GI PROCEDURE ORDERABLES [facility] * EGD (01/12/2020 3:37 PM CDT) Report Endoscopy POC Endoscopy Department Report _ Patient Name: Dominga Cuello Procedure Date: 01/12/2020 3:37 PM Date of : 1965 Classification: Outpatient Gender: Male Ethnicity: Not or Race: White _ Providers: Connor Virgen Referring MD: Melecio Graves (Referring MD) Procedure: Colonoscopy Indications: Screening for colorectal malignant neoplasm Medications: See the Anesthesia note for documentation [...] satisfactory condition to undergo the procedure. After I obtained informed consent, the scope was passed under direct vision. Throughout the procedure, the patient's blood pressure, pulse, and oxygen saturations were monitored continuously. The [id number] was introduced through the anus and advanced to the cecum, identified by appendiceal orifice and ileocecal valve. The colonoscopy was performed without difficulty. The patient tolerated the procedure well. The quality of the bowel preparation was evaluated using the BBPS ([place] Bowel Preparation Scale) with scores of: Right Colon = 1 (portion of mucosa seen, but other areas not well seen due to staining, residual stool and/or opaque liquid), Transverse Colon = 1 (portion of mucosa seen, but other areas not well seen due to staining, residual stool and/or opaque liquid) and Left Colon = 1 (portion of mucosa seen, but other areas not well seen due to staining, residual stool and/or opaque liquid). The total BBPS score equals 3. The quality of the bowel preparation was inadequate. Findings: A moderate amount of stool was found in the entire colon, precluding visualization. Lavage of the area was performed, resulting in incomplete clearance with continued poor visualization. Inadequate exam to evaluate to polyps or other lesions. Normal rectum including exam on retroflexion. No rectal varices present. Estimated Blood Loss: Estimated blood loss: none. Complications: No immediate complications. Impression: - Preparation of the colon was inadequate. Recommendation: - Repeat Colonoscopy in 6 months with extended prep at the time. Attending Participation: I personally performed the entire procedure. Procedure Code(s): --- Professional --- 61258, Colonoscopy, flexible; diagnostic, including collection of specimen(s) by brushing or washing, when performed (separate procedure) Diagnosis Code(s): --- Professional --- Z12.11, Encounter for screening for malignant neoplasm of colon CPT copyright 2019 [employer]. All rights reserved. The codes documented in this report are preliminary and upon rhinestone setter review may be revised to meet current compliance requirements. _ Connor Virgen, 01/12/2020 4:33:26 PM Note Initiated On: 01/12/2020 3:37 PM Number of Addenda: [address] [address] [facility] [employer] 01/12/2020 3:37 PM CDT Connor Chavez MD GI PROCEDURE ORDERABLES [facility] * LARGE VOLUME PARACENTESIS (01/12/2020 1:14 PM CDT) Report Endoscopy POC Endoscopy Department Report _ Patient Name: Dominga Cuello Procedure Date: 01/12/2020 1:14 PM Date of : 1965 Classification: Outpatient Gender: Male Ethnicity: Not or Race: White _ Providers: Sharmila Rangel PA-C, Carolyn Adames MD Referring MD: Procedure: Paracentesis (Repeat) Indications: Ascites, Ascites shown on ultrasound, Diagnostic to rule out peritonitis, Cirrhosis, Cirrhosis (Alcoholic), Portal hypertension, End stage renal disease Medications: 1% Lidocaine 10 mL SubQ Description of Procedure: After obtaining informed consent, the procedure was performed. Throughout the procedure, the patient's blood pressure, pulse, and oxygen saturations were monitored continuously. The paracentesis was accomplished without difficulty. The patient tolerated the procedure well. Findings: Prior to the procedure, the abdomen was examined and demonstrated moderate distention with ascites. With the patient in a supine with head elevated position, the procedure site was sterilely prepped using chloroprep and draped in the usual fashion. 10 mL of 1% lidocaine was infiltrated into the skin and subcutaneous tissues. Using a left lower quadrant approach, a small stab incision was made with a disposable blade and a 5 inch 12 gauge paracentesis needle and cannula system was inserted into the peritoneal cavity under ultrasound guidance. Aspiration demonstrated no blood and good return of peritoneal fluid. One pass was made. The trocar was then removed leaving the catheter in place. 1 liter of clear, yellow, blood-tinged fluid was withdrawn using a vacuum bottle. Fluid was sent for cell count and differential and culture and sensitivities. The incision site was closed with exofin and tegaderm. Estimated Blood Loss: Estimated blood loss: none. Complications: No immediate complications. Impression: - Paracentesis successfully performed. - Test results pending. Recommendation: - Transfer patient to main endoscopy unit for next regularly scheduled procedure. Attending Participation: I was present for the hooper portions of this procedure and either I or my colleague was immediately available for all non-hooper portions of the procedure. Procedure Code(s): --- Professional --- 11083, Abdominal paracentesis (diagnostic or therapeutic); with imaging guidance Diagnosis Code(s): --- Professional --- K70.31, Alcoholic cirrhosis of liver with ascites R18.8, Other ascites K74.60, Unspecified cirrhosis of liver K76.6, Portal hypertension N18.6, End stage renal disease CPT copyright 2019 [employer]. All rights reserved. The codes documented in this report are preliminary and upon rhinestone setter review may be revised to meet current compliance requirements. Sharmila Rangel PA-C 01/12/2020 1:19:57 PM This report has been signed electronically. Carolyn Adames MD Note Initiated On: 01/12/2020 1:14 PM Number of Addenda: 0 [facility] [address] [place] [address] [facility] 01/12/2020 1:14 PM CDT Sharmila Rangel PA-C GI PROCEDURE OR DERABLES [facility] * (ABNORMAL) CELL COUNT W DIFFERENTIAL FLUID (01/12/2020 11:24 AM CDT) Only the most recent of18 resultswithin the time period is included. Color Fluid Other(A) Colorless, Straw 01/12/2020 12:24 PM CDT [facility] Comment:orange Clarity Fluid Hazy(A) Clear 01/12/2020 12:24 PM CDT [facility] Volume Fluid 3.0 mL 01/12/2020 12:24 PM CDT [facility] WBC Fluid 310 Reference Range Not Established /uL 01/12/2020 12:24 PM CDT [facility] RBC Fluid 7,000 Reference Range Not Established /uL 01/12/2020 12:24 PM CDT [facility] Differential Manual Differential to follow. 01/12/2020 12:24 PM CDT [facility] Fluid (Ascities) Collection / Unknown 01/12/2020 11:24 AM CDT 01/12/2020 12:12 PM CDT Narrative [facility] - 01/12/2020 12:24 PM CDT No reference ranges established for body fluid cell counts. The reference ranges provided are derived from published literature. The test results must be integrated into the clinical context for interpretation. Sharmila Rangel PA-C LAB - BODY FLUI D ORDERABLES Performing Organization Address [facility] Co de Phone Number [address] [phone] [phone] * CARDIAC PROCEDURE ORDER (12/09/2019 9:14 AM CDT) Narrative 12/09/2019 9:14 AM CDT Ordered by an unspecified provider. Scanned Document CARDIAC SERVICES ORD ERABLES * CCL CARDIAC CATH LEFT HEART ONLY (11/28/2019 10:37 AM CDT) Anatomical Region Laterality Modality Chest X-Ray Angiograph y Narrative 12/15/2019 12:40 PM CDT [facility] Cardiac Catheterization Procedure Note Patient: Dominga Cuello Age: [age] year old Date of : 1965 Date of Admission: 11/28/19 Procedure Date: 11/28/19 FELLOW / DINKEY PRESS OPERATOR: Abner Frye MD ATTENDING PHYSICIAN: Dr. Valderrama PREVIOUS STRESS STUDIES WITHIN 6 MONTHS: No DIAGNOSTIC APPROPRIATENESS CRITERIA: 66 HISTORY: 53yo with EtOH cirrhosis and ESRD on HD who presents for pre-transplant evaluation. ACCESS SITE(S): right radial artery PROCEDURAL OVERVIEW: After obtaining informed consent and positioning the patient on the catheterization table, a timeout was performed to confirm the patient s name, date of , and procedure. Sedation was initiated and the patient was prepped and draped using standard sterile technique. Lidocaine was used for local anesthesia over the access site, after which the vessel was accessed and a sheath was placed using the modified Seldinger technique. Access was uncomplicated. At the conclusion of the procedure, hemostasis was achieved using a radial compression device after removal of all catheters, wires, and sheaths. No sedation administered. COMPLICATIONS: None ANGIOGRAPHY: i. Left main: Patent LM that bifurcates into LAD and and Cx. ii. LAD: Patent vessel giving rise to large D1 without significant disease. iii. LCx: Patent vessel with large OM1 iv. RCA: Minimal luminal irregularities branching into PAD and rPL. DOMINANCE: Right DIAGNOSTIC INTERPRETATIONS: Mild non-obstructive coronary artery disease. RECOMMENDATIONS AFTER DIAGNOSTIC CATHETERIZATION: No cardiac contraindication to proceeding with renal and liver transplant evaluation. Abner Frye MD 11/28/2019 I was present for the entirety of the described procedure. Eleazar Valderrama MD Melecio Graves MD CARDIAC TANNING SALON ATTENDANT RAD IANT * ECHO STRESS TEST W DOBUTAMINE (10/08/2019 11:28 AM CDT) Anatomical Region Laterality Modality Chest Echo 10/08/2019 10:0 5 AM CDT Narrative Procedure Note Makenzie Maradiaga MD - 10/08/2019 Melecio Graves MD ECHOCARDIOGRAPHY RAD IANT * ECHO STRESS COLOR FLOW AND DOPPLER (10/08/2019 11:26 AM CDT) Anatomical Region Laterality Modality Chest Echo 10/08/2019 9:40 AM CDT Narrative Procedure Note Makenzie Maradiaga MD - 10/08/2019 Melecio Graves MD ECHOCARDIOGRAPHY RAD IANT * PROTEIN URINE RANDOM QUANTITATIVE (10/08/2019 8:54 AM CDT) Only the most recent of3 resultswithin the time period is included. Protein Urine 150 Not Established mg/dL 10/08/2019 10:01 AM CDT [facility] Urine URINE SPECIMEN OBTAINED BY CLEAN CATCH PROCEDURE / Unknown Collection / Unknown 10/08/2019 8:54 AM CDT 10/08/2019 9:16 AM CDT Melecio Graves MD LAB - URINE CHEMISTR Y ORDERABLES Performing Organization Address City/[facility]/ZIP Co de Phone Number [address] [phone] * CREATININE URINE RANDOM (10/08/2019 8:54 AM CDT) Only the most recent of4 resultswithin the time period is included. Creatinine Urine 97 Not Established mg/dL 10/08/2019 10:00 AM CDT [facility] Comment:Result obtained by chang lamb. Urine URINE SPECIMEN OBTAINED BY CLEAN CATCH PROCEDURE / Unknown Collection / Unknown 10/08/2019 8:54 AM CDT 10/08/2019 9:16 AM CDT Melecio Graves MD LAB - URINE CHEMISTR Y ORDERABLES Performing Organization Address [facility]/ZIP Co de Phone Number [address] [phone] * HLA XM SEROLOGIC AUTO (10/08/2019 8:51 AM CDT) AXM Serum Date 0 10/28/2019 8:12 AM CDT [facility] ([facility]) AXM T YUMIKO Neg 10/28/2019 8:12 AM CDT [facility] ([facility]) AXM Test Date 0 10/28/2019 8:12 AM CDT [facility] ([facility]) Comment: This test was developed and its performance characteristics determined by the [facility]. It has not been cleared or approved by the U.S. Food and Drug Administration. The FDA has determined that such clearance or approval is not necessary. This test is used for clinical purposes. It should not be regarded as investigational or for research. This laboratory is certified under the Clinical Laboratory Improvement Amendments of 1988 (CLIA-88) as qualified to perform high complexity clinical laboratory testing. CLIA ID# [id number] Performed at: [facility], [address] @ [place] [address] Clerk: Kei Chavira MD, AXM B YUMIKO Neg 10/28/2019 8:12 AM CDT [facility] ([facility]) AXM T [facility] Neg 10/28/2019 8:12 AM CDT [facility] ([facility]) AXM B [facility] Neg 10/28/2019 8:12 AM CDT [facility] ([facility]) Blood BLOOD SPECIMEN / Unknown Lab Venipuncture / Unknown 10/08/2019 8:51 AM CDT 10/08/2019 9:28 AM CDT Melecio Graves MD LAB - BLOOD BANK ORD ERABLES Performing Organization Address City/State/[facility] Co de Phone Number [facility] ([facility]) [address] [phone] * HLA ANTIBODY SCREEN LUM CLASS 2 ID (10/08/2019 8:51 AM CDT) Pathologist [facility] % PRA 0 10/28/2019 8:12 AM CDT [facility] ([facility]) Class 2 LUM Specificity - 10/28/2019 8:12 AM CDT [facility] ([facility]) Class 2 LUM Test Date 0 10/28/2019 8:12 AM CDT [facility] ([facility]) Comment: This test was developed and its performance characteristics determined by the [facility]. It has not been cleared or approved by the U.S. Food and Drug Administration. The FDA has determined that such clearance or approval is not necessary. This test is used for clinical purposes. It should not be regarded as investigational or for research. This laboratory is certified under the Clinical Laboratory Improvement Amendments of 1988 (CLIA-88) as qualified to perform high complexity clinical laboratory testing. CLIA ID# [id number] Performed at: [facility], [address] [place] [address] Clerk: Kei Chavira MD, Blood BLOOD SPECIMEN / Unknown Lab Venipuncture / Unknown 10/08/2019 8:51 AM CDT 10/08/2019 9:29 AM CDT Melecio Gravse MD LAB - BLOOD BANK ORD ERABLES Performing Organization Address City/State/[facility] Co de Phone Number [facility] ([facility]) [address] [address], [place] * HLA ANTIBODY SCREEN LUM CLASS 1 ID (10/08/2019 8:51 AM CDT) Pathologist [facility] % PRA 2 10/28/2019 8:12 AM CDT [facility] ([facility]) Class 1 LUM Specificity - 10/28/2019 8:12 AM CDT [facility] ([facility]) Class 1 LUM Test Date 0 10/28/2019 8:12 AM CDT [facility] ([facility]) Comment: This test was developed and its performance characteristics determined by the [facility]. It has not been cleared or approved by the U.S. Food and Drug Administration. The FDA has determined that such clearance or approval is not necessary. This test is used for clinical purposes. It should not be regarded as investigational or for research. This laboratory is certified under the Clinical Laboratory Improvement Amendments of 1988 (CLIA-88) as qualified to perform high complexity clinical laboratory testing. CLIA ID# [id number] Performed at: [facility], [address] @ [place] [address] Clerk: Kei Chavira MD, Blood BLOOD SPECIMEN / Unknown Lab Venipuncture / Unknown 10/08/2019 8:51 AM CDT 10/08/2019 9:28 AM CDT Melecio Graves MD LAB - BLOOD BANK ORD ERABLES [facility] ([facility]) [address] [phone] * RUBELLA ANTIBODY IGG (10/08/2019 8:51 AM CDT) Rubella Antibody 7.74 Immune >0.99 index 10/09/2019 7:07 AM CDT [facility] ([facility]) Comment: Non-immune <0.90 Equivocal 0.90 - 0.99 Immune >0.99 Blood BLOOD SPECIMEN / Unknown Lab Venipuncture / Unknown 10/08/2019 8:51 AM CDT 10/08/2019 9:31 AM CDT Narrative [facility] ([facility]) - 10/09/2019 7:07 AM CDT Performed at: - [id number] [place], [place] [id number] [address] Clerk: Gilberto Coburn PhD, Phone: [phone] Melecio Graves MD LAB - SEROLOGY ORDER [facility] ([facility]) [address] [place] [address] * SMOOTH MUSCLE ANTIBODY (10/08/2019 8:51 AM CDT) F-Actin Antibody IgG 13.5 0.0 - 19.9 Units 10/10/2019 10:42 AM CDT [facility] Comment: F-Actin Antibody Numeric Result Interpretation: <20.0 Units: Negative 20.0 - 30.0 Units: Weak Positive >30.0 Units: Moderate to Strong Positive Blood BLOOD SPECIMEN / Unknown Lab Venipuncture / Unknown 10/08/2019 8:51 AM CDT 10/08/2019 9:29 AM CDT Melecio Graves MD LAB - SEROLOGY ORDER [facility] [address] [phone] * US RETROPERITONEAL COMPLETE (10/08/2019 8:38 AM CDT) Only the most recent of2 resultswithin the time period is included. Anatomical Region Laterality Modality Abdomen Ultrasound 10/08/2019 8:26 AM CDT Impressions 10/08/2019 11:19 AM CDT IMPRESSION: 1.Bilateral echogenic kidneys consistent with chronic medical renal disease, with slight interval decrease in renal size. 2.No evidence of solid renal mass, hydronephrosis, or nephrolithiasis. Dictated by Norman Saul MD (physician president). I, Dr. DEAN LARES M.D. have personally reviewed and interpreted this examination/study. This report was electronically signed by DEAN LARES M.D. on 10/08/2019 11:19 AM . 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 FINDINGS: Right kidney: 8.8 x 5.3 x 4.5 cm Left kidney: 9.3 x 3.8 x 3.9 cm The kidneys have decreased in size since prior study. Renal parenchymal echogenicity is increased. A parenchymal calcification in the right kidney measures 2 mm. There is no evidence of a solid renal mass, renal calculi, or hydronephrosis. Blood flow is seen within the renal arteries and veins. The bladder is nondistended. Ascites is present in this patient on peritoneal dialysis. 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 FINDINGS: Right kidney: 8.8 x 5.3 x 4.5 cm Left kidney: 9.3 x 3.8 x 3.9 cm The kidneys have decreased in size since prior study. Renal parenchymal echogenicity is increased. A parenchymal calcification in the rightkidney measures 2 mm. There is no evidence of a solid renal mass, renalcalculi, or hydronephrosis. Blood flow is seen within the renal arteries andveins. The bladder is nondistended. Ascites is present in this patient on peritoneal dialysis. The liver surface is nodular consistent with known hepatic cirrhosis IMPRESSION: 1.Bilateral echogenic kidneys consistent with chronic medical renal disease, with slight interval decrease in renal size. 2.No evidence of solid renal mass, hydronephrosis, or nephrolithiasis. Dictated by Norman Saul MD (physician president). I, Dr. DEAN LARES M.D. have personally reviewed and interpreted this examination/study. This report was electronically signed by DEAN LARES M.D. on10/08/2019 11:19 AM . Melecio Graves MD ORDERABLES * LARGE VOLUME PARACENTESIS (09/29/2019 2:54 PM CDT) Report Endoscopy POC Endoscopy Department Report _ Patient Name: Dominga Cuello Procedure Date: 09/29/2019 2:54 PM Date of : 1965 Classification: Outpatient Gender: Male Ethnicity: Not or Race: White _ Providers: Sharmila Rangel PA-C, Timi Hanna MD Referring MD: Procedure: Paracentesis (Repeat) Indications: Ascites, Ascites shown on ultrasound, Diagnostic to rule out peritonitis, Cirrhosis, Cirrhosis (Alcoholic), Portal hypertension, End stage renal disease Medications: 1% Lidocaine 10 mL SubQ Description of Procedure: After obtaining informed consent, the procedure was performed. Throughout the procedure, the patient's blood pressure, pulse, and oxygen saturations were monitored continuously. The paracentesis was accomplished without difficulty. The patient tolerated the procedure well. Findings: Prior to the procedure, the abdomen was examined and demonstrated moderate distention with ascites and a fluid wave to be present. With the patient in a supine with head elevated position, the procedure site was sterilely prepped using chloroprep and draped in the usual fashion. 10 mL of 1% lidocaine was infiltrated into the skin and subcutaneous tissues. Using a left lower quadrant approach, a small stab incision was made with a disposable blade and a 5 inch 12 gauge paracentesis needle and cannula system was inserted into the peritoneal cavity under ultrasound guidance. Aspiration demonstrated no blood and good return of peritoneal fluid. One pass was made. The trocar was then removed leaving the catheter in place. 5.5 liters of clear, yellow fluid was withdrawn using a vacuum bottle. Fluid was sent for cell count and differential and culture and sensitivities. The incision site was closed with exofin and tegaderm. 150 mL of 25% Albumin was administered during the course of the procedure to treat the patient for underlying renal failure. Estimated Blood Loss: Estimated blood loss: none. Complications: No immediate complications. Impression: - Paracentesis successfully performed. - Test results pending. Recommendation: - Discharge patient to home (ambulatory). - Return to liver clinic as previously scheduled. - Repeat paracentesis PRN for therapeutic purposes. Attending Participation: I was present for the hooper portions of this procedure and either I or my colleague was immediately available for all non-hooper portions of the procedure. Procedure Code(s): --- Professional --- 31304, Abdominal paracentesis (diagnostic or therapeutic); with imaging guidance Diagnosis Code(s): --- Professional --- K70.31, Alcoholic cirrhosis of liver with ascites R18.8, Other ascites K74.60, Unspecified cirrhosis of liver K76.6, Portal hypertension N18.6, End stage renal disease CPT copyright 2016 [employer]. All rights reserved. The codes documented in this report are preliminary and upon rhinestone setter review may be revised to meet current compliance requirements. Sharmila Rangel PA-C 09/29/2019 3:00:50 PM This report has been signed electronically. __ Timi Hanna MD Note Initiated On: 09/29/2019 2:54 PM Number of Addenda: [address] 09/29/2019 2:54 PM CDT Sharmila Rangel PA-C GI PROCEDURE OR DERABLES Performing Organization Address City/[facility] Co de Phone Number [facility] * TSH (09/10/2019 3:49 AM CDT) Pathologist [facility] TSH 1.338 0.350 - 4.940 uIU/mL 09/10/2019 7:52 AM CDT [facility] Blood BLOOD SPECIMEN / Unknown Lab Venipuncture / Unknown 09/10/2019 3:49 AM CDT 09/10/2019 4:03 AM CDT Hitesh Middleton MD LAB - CHEMISTRY FREDO CHAVES Performing Organization Address [facility] Co de Phone Number [address] [phone] * (ABNORMAL) BLOOD GASES ARTERIAL (09/09/2019 10:28 PM CDT) pH Arterial 7.21(L) 7.35 - 7.45 09/09/2019 10:33 PM [facility] pCO2 Arterial 21(L) 35 - 45 mmHg 09/09/2019 10:33 PM [facility] pO2 Arterial 123(H) 77 - 101 mmHg 09/09/2019 10: PM [facility] HCO3 Arterial 8.0(L) 22.0 - 26.0 mmol/L 09/09/2019 10: PM [facility] TCO2 Arterial 8.6(L) 25.0 - 29.0 mmol/L 09/09/2019 10: PM [facility] Base Excess Arterial -18.2(L) -2.0 - 2.0 mmol/L 09/09/2019 10: PM [facility] Hemoglobin Arterial 8.8(L) 13.5 - 17.5 g/dL 09/09/2019 10: PM [facility] Oxyhemoglobin Arterial 96.4 95.0 - 100.0 % 09/09/2019 10: PM [facility] Carboxyhemoglobin 0.2 0.0 - 3.0 % 09/09/2019 10:33 PM [facility] Methemoglobin 0.3 0.0 - 2.0 % 09/09/2019 10:33 PM [facility] FI O2 Arterial 21.0 % 09/09/2019 10:33 PM [facility] Blood, arterial ARTERIAL BLOOD SPECIMEN / Unknown Arterial Puncture / Unknown 09/09/2019 10:28 PM CDT 09/09/2019 10:31 PM CDT Kaleb Rodriguez MD LAB - BLOOD GASES ORDERABLES [address] [phone] * (ABNORMAL) URINALYSIS REFLEX TO MICROSCOPIC NO CULTURE (09/09/2019 5:02 PM CDT) Only the most recent of3 resultswithin the time period is included. Color UA Yellow Straw, Yellow, Colorless 09/09/2019 5:25 PM T [facility] Clarity UA Slt Cloudy Clear, Slt Cloudy 09/09/2019 5:25 PM CDT [facility] Specific [place] UA 1.014 1.005 - 1.030 09/09/2019 5:25 PM [facility] pH UA 5.0 5.0 - 8.0 pH 09/09/2019 5:25 PM [facility] Protein UA 2+(A) Negative mg/dL 09/09/2019 5:25 PM [facility] Glucose UA Negative Negative mg/dL 09/09/2019 5:25 PM [facility] Ketone UA Negative Negative mg/dL 09/09/2019 5:25 PM [facility] Bilirubin UA Negative Negative mg/dL 09/09/2019 5:25 PM [facility] Blood UA 3+(A) Negative 09/09/2019 5:25 PM [facility] Nitrite UA Negative Negative 09/09/2019 5:25 PM [facility] Leukocyte Esterase Negative Negative 09/09/2019 5:25 PM [facility] Urobilinogen UA Negative Negative mg/dL 09/09/2019 5:25 PM [facility] RBC UA >100(A) None Seen, 0-2, 3-5 /HPF 09/09/2019 5:25 PM [facility] WBC UA 6-10(A) None Seen, 0-5 /HPF 09/09/2019 5:25 PM [facility] Bacteria UA 1+(A) None, Trace /HPF 09/09/2019 5:25 PM [facility] Squamous Epithelial Cells UA 0-2 None Seen, 0-2 /HPF 09/09/2019 5:25 PM [facility] Mucus UA 1+ None, 1+ /LPF 09/09/2019 5:25 PM [facility] Urine URINE SPECIMEN OBTAINED BY CLEAN CATCH PROCEDURE / Unknown Collection / Unknown 09/09/2019 5:02 PM CDT 09/09/2019 5:10 PM T [facility] - 09/09/2019 5:25 PM CDT Paris Flynn MD LAB - URINALYSIS ORD ERABLES [place] [id number] [address] [phone] * IMAGING RADIOLOGY XRAY RESULTS ORDER (09/05/2019 1:39 PM [facility]) Anatomical Region Laterality Modality Other Narrative 09/05/2019 1:39 PM [facility] Ordered by an unspecified provider. Scanned Document IMAGING * LARGE VOLUME PARACENTESIS (09/04/2019 3:10 PM [facility]) Report Endoscopy POC Endoscopy Department Report _ Patient Name: Dominga Cuello Procedure Date: 09/04/2019 3:10 PM Date of : 1965 Classification: Outpatient Gender: Male Ethnicity: Not or Race: White _ Providers: Sharmila Rangel PA-C, Timi Hanna MD Referring MD: Procedure: Paracentesis (Repeat) Indications: Ascites, Ascites shown on ultrasound, Diagnostic to rule out peritonitis, Cirrhosis, Cirrhosis (Alcoholic), Portal hypertension, End stage renal disease Medications: 1% Lidocaine 10 mL SubQ Description of Procedure: After obtaining informed consent, the procedure was performed. Throughout the procedure, the patient's blood pressure, pulse, and oxygen saturations were monitored continuously. The paracentesis was accomplished without difficulty. The patient tolerated the procedure well. Findings: Prior to the procedure, the abdomen was examined and demonstrated significant distention with ascites and a fluid wave to be present. With the patient in a supine with head elevated position, the procedure site was sterilely prepped using chloroprep and draped in the usual fashion. 10 mL of 1% lidocaine was infiltrated into the skin and subcutaneous tissues. Using a left lower quadrant approach, a small stab incision was made with a disposable blade and a 5 inch 12 gauge paracentesis needle and cannula system was inserted into the peritoneal cavity under ultrasound guidance. Aspiration demonstrated good return of peritoneal fluid and return of bloody fluid. The needle was repositioned and good return of peritoneal fluid was obtained. One pass was made. The trocar was then removed leaving the catheter in place. 10.5 liters of yellow, bloody fluid was withdrawn using a vacuum bottle. Fluid was sent for cell count and differential and culture and sensitivities. The incision site was closed with exofin and tegaderm. 300 mL of 25% Albumin was administered during the course of the procedure to treat the patient for underlying renal failure. Estimated Blood Loss: Estimated blood loss: none. Complications: No immediate complications. Impression: - Paracentesis successfully performed. - Test results pending. Recommendation: - Discharge patient to home (ambulatory). - Return to liver clinic as previously scheduled. - Repeat paracentesis PRN for therapeutic purposes. Attending Participation: I was present for the hooper portions of this procedure and either I or my colleague was immediately available for all non-hooper portions of the procedure. Procedure Code(s): --- Professional --- 74828, Abdominal paracentesis (diagnostic or therapeutic); with imaging guidance Diagnosis Code(s): --- Professional --- K70.31, Alcoholic cirrhosis of liver with ascites R18.8, Other ascites K74.60, Unspecified cirrhosis of liver K76.6, Portal hypertension N18.6, End stage renal disease CPT copyright 2016 [employer]. All rights reserved. The codes documented in this report are preliminary and upon rhinestone setter review may be revised to meet current compliance requirements. Sharmila Rangel PA-C 09/04/2019 3:16:49 PM This report has been signed electronically. __ Timi Hanna MD Note Initiated On: 09/04/2019 3:10 PM Number of Addenda: 0 [facility] [address] [place] [address] [facility] 09/04/2019 3:10 PM [facility] Sharmila Rangel PA-C GI PROCEDURE OR DERABLES [facility] * LARGE VOLUME PARACENTESIS (08/13/2019 1:49 PM [facility]) Report Endoscopy POC Endoscopy Department Report __ _ Patient Name: Dominga Cuello Procedure Date: 08/13/2019 1:49 PM Date of : 1965 Classification: Outpatient Gender: Male Ethnicity: Not or Race: White __ _ Providers: Jaqueline Park NP, Radha Vines MD Referring MD: Procedure: Paracentesis (Repeat) Indications: Ascites, Ascites shown on ultrasound, Cirrhosis, Portal hypertension Medications: 1% Lidocaine 10 mL SubQ Description of Procedure: After obtaining informed consent, the procedure was performed. Throughout the procedure, the patient's blood pressure, pulse, and oxygen saturations were monitored continuously. The paracentesis was accomplished without difficulty. The patient tolerated the procedure well. Findings: With the patient in a supine with head elevated position, the procedure site was sterilely prepped using chloroprep and draped in the usual fashion. 10 mL of 1% lidocaine with epinephrine was infiltrated into the skin and subcutaneous tissues. Using a left lower quadrant approach, a small stab incision was made with a disposable blade and a 5 inch 16 gauge paracentesis needle and cannula system was inserted into the peritoneal cavity under ultrasound guidance. Aspiration demonstrated no blood and good return of peritoneal fluid. One pass was made. The trocar was then removed leaving the catheter in place. 5. 5 liters of clear, yellow fluid was withdrawn using a vacuum bottle. Fluid was sent for cell count and differential and culture and sensitivities. when the procedure was completed, the catheter was removed intact and the puncture wound was closed with exofin and covered with tegaderm 200 mL of 25% Albumin was administered during the course of the procedure to treat the patient for prophylactically for potential hypotension. Estimated Blood Loss: Estimated blood loss: none. Complications: No immediate complications. Impression: - Paracentesis successfully performed. Recommendation: - Discharge patient to home (ambulatory). - Low sodium diet indefinitely. - Return to GI clinic as previously scheduled. Attending Participation: I was present for the hooper portions of this procedure and either I or my colleague was immediately available for all non-hooper portions of the procedure. Procedure Code(s): --- Professional --- 32738, Abdominal paracentesis (diagnostic or therapeutic); with imaging guidance Diagnosis Code(s): --- Professional --- R18.8, Other ascites K74.60, Unspecified cirrhosis of liver K76.6, Portal hypertension CPT copyright 2016 [employer]. All rights reserved. The codes documented in this report are preliminary and upon rhinestone setter review may be revised to meet current compliance requirements. Jaqueline Park APN ____ Jaqueline Park NP 08/13/2019 1:59:41 PM This report has been signed electronically. ___ Radha Vines MD Note Initiated On: 08/13/2019 1:49 PM Number of Addenda: 0 [facility] [address] [place] [address] [facility] 08/13/2019 1:49 PM [facility] Jaqueline Park [employer] WORKER-[employer] GI PROCEDURE ORDERABLES [facility] * LARGE VOLUME PARACENTESIS (06/30/2019 1:00 PM [facility]) Report Endoscopy POC Endoscopy Department Report _ Patient Name: Dominga Cuello Procedure Date: 06/30/2019 1:00 PM Date of : 1965 Classification: Outpatient Gender: Male Ethnicity: Not or Race: White _ Providers: Ranjit Garcia MD, Shelly Marti (Fellow) Referring MD: Procedure: Paracentesis (Repeat) Indications: Ascites, Ascites shown on ultrasound, Cirrhosis, Portal hypertension Medications: 1% Lidocaine 4 mL SubQ Comorbidities Cirrhosis, portal hypertension Patient Profile: 53 year old M presents with abdominal bloating and known hx ascites Description of Procedure: After obtaining informed consent, the procedure was performed. Throughout the procedure, the patient's blood pressure, pulse, and oxygen saturations were monitored continuously.The paracentesis was accomplished without difficulty. The patient tolerated the procedure well. Findings: Prior to the procedure, the abdomen was examined and demonstrated moderate distention with ascites. With the patient in a supine with head elevated position, the procedure site was sterilely prepped using chloraprep and draped in the usual fashion. 4 mL of 1% lidocaine was infiltrated into the skin and subcutaneous tissues. Using a left lower quadrant approach, a small stab incision was made with a disposable blade and a 5 inch 12 gauge paracentesis needle and cannula system was inserted into the peritoneal cavity under ultrasound guidance. Aspiration demonstrated good return of peritoneal fluid. One pass was made. A guidewire was inserted and the needle removed. The catheter was passed over the guidewire and the guidewire was then removed. 2300 ml of clear, straw-colored fluid was withdrawn using vacuum bottles. Fluid was sent for cell count and differential, Gram stain and culture and sensitivities. The incision site was closed with exofin and tegaderm. Albumin was not administered. Estimated Blood Loss: Estimated blood loss was minimal. Impression: - Paracentesis successfully performed. - Test results pending. Recommendation: - Patient has a contact number available for emergencies. The signs and symptoms of potential delayed complications were discussed with the patient. Return to normal activities tomorrow. Written discharge instructions were provided to the patient. - Discharge patient to home. - Low sodium diet. - Repeat paracentesis at appointment to be scheduled as needed for therapeutic purposes. - Return to GI clinic as previously scheduled. Attending Participation: I was present for the hooper portions of this procedure and immediately available for all non-hooper portions of the procedure. Procedure Code(s): --- Professional --- 17060, Abdominal paracentesis (diagnostic or therapeutic); with imaging guidance Diagnosis Code(s): --- Professional --- R18.8, Other ascites K74.60, Unspecified cirrhosis of liver K76.6, Portal hypertension CPT copyright 2016 [employer]. All rights reserved. The codes documented in this report are preliminary and upon rhinestone setter review may be revised to meet current compliance requirements. __ Ranjit Garcia MD 07/03/2019 9:46:39 AM Note Initiated On: 06/30/2019 1:00 PM Number of Addenda: 0 [facility] [address] [place] [address] [facility] 06/30/2019 1:00 PM [facility] Shelly Marti MD GI PROCEDUR E ORDERABLES [facility] * LARGE VOLUME PARACENTESIS (06/05/2019 2:59 PM [facility]) Report Endoscopy POC Endoscopy Department Report _ Patient Name: Dominga Cuello Procedure Date: 06/05/2019 2:59 PM Date of : 1965 Classification: Outpatient Gender: Male Ethnicity: Not or Race: White _ Providers: Sharmila Rangel PA-C, Timi Hanna MD Referring MD: Procedure: Paracentesis (Repeat) Indications: Ascites, Ascites shown on ultrasound, Diagnostic to rule out peritonitis, Cirrhosis, Cirrhosis (Alcoholic), Portal hypertension, End stage renal disease Medications: 1% Lidocaine 10 mL SubQ Description of Procedure: After obtaining informed consent, the procedure was performed. Throughout the procedure, the patient's blood pressure, pulse, and oxygen saturations were monitored continuously. The paracentesis was accomplished without difficulty. The patient tolerated the procedure well. Findings: Prior to the procedure, the abdomen was examined and demonstrated moderate distention with ascites and a fluid wave to be present. With the patient in a supine with head elevated position, the procedure site was sterilely prepped using chloroprep and draped in the usual fashion. 10 mL of 1% lidocaine was infiltrated into the skin and subcutaneous tissues. Using a left lower quadrant approach, a small stab incision was made with a disposable blade and a 5 inch 12 gauge paracentesis needle and cannula system was inserted into the peritoneal cavity under ultrasound guidance. Aspiration demonstrated no blood and good return of peritoneal fluid. One pass was made. The trocar was then removed leaving the catheter in place. 5 liters of clear, yellow fluid was withdrawn using a vacuum bottle. Fluid was sent for cell count and differential and culture and sensitivities. The incision site was closed with exofin and tegaderm. 150 mL of 25% Albumin was administered during the course of the procedure to treat the patient for underlying renal failure. Estimated Blood Loss: Estimated blood loss: none. Complications: No immediate complications. Impression: - Paracentesis successfully performed. - Test results pending. Recommendation: - Discharge patient to home (ambulatory). - Return to liver clinic as previously scheduled. - Repeat paracentesis PRN for therapeutic purposes. Attending Participation: I was present for the hooper portions of this procedure and either I or my colleague was immediately available for all non-hooper portions of the procedure. Procedure Code(s): --- Professional --- 33647, Abdominal paracentesis (diagnostic or therapeutic); with imaging guidance Diagnosis Code(s): --- Professional --- K70.31, Alcoholic cirrhosis of liver with ascites R18.8, Other ascites K74.60, Unspecified cirrhosis of liver K76.6, Portal hypertension N18.6, End stage renal disease CPT copyright 2016 [employer]. All rights reserved. The codes documented in this report are preliminary and upon rhinestone setter review may be revised to meet current compliance requirements. Sharmila Rangel PA-C 06/05/2019 3:04:10 PM This report has been signed electronically. __ Timi Hanna MD Note Initiated On: 06/05/2019 2:59 PM Number of Addenda: 0 [facility] [address] [place] [address] [facility] 06/05/2019 2:59 PM [facility] Sharmila Rangel PA-C GI PROCEDURE OR DERABLES [facility] * LARGE VOLUME PARACENTESIS (05/23/2019 1:27 PM [facility]) Report Endoscopy POC Endoscopy Department Report __ _ Patient Name: Dominga Cuello Procedure Date: 05/23/2019 1:27 PM Date of : 1965 Classification: Outpatient Gender: Male Ethnicity: Not or Race: White __ _ Providers: Sharmila Rangel PA-C, Radha Vines MD Referring MD: Procedure: Paracentesis (Repeat) Indications: Ascites, Ascites shown on ultrasound, Diagnostic to rule out peritonitis, Cirrhosis, Cirrhosis (Alcoholic), Portal hypertension, End stage renal disease Medications: 1% Lidocaine 10 mL SubQ Description of Procedure: After obtaining informed consent, the procedure was performed. Throughout the procedure, the patient's blood pressure, pulse, and oxygen saturations were monitored continuously. The paracentesis was accomplished without difficulty. The patient tolerated the procedure well. Findings: Prior to the procedure, the abdomen was examined and demonstrated moderate distention with ascites and a fluid wave to be present. With the patient in a supine with head elevated position, the procedure site was sterilely prepped using Chloraprep and draped in the usual fashion. 10 mL of 1% lidocaine was infiltrated into the skin and subcutaneous tissues. Using a left lower quadrant approach, a small stab incision was made with a disposable blade and a 5 inch 12 gauge paracentesis needle and cannula system was inserted into the peritoneal cavity under ultrasound guidance. Aspiration demonstrated no blood and good return of peritoneal fluid. One pass was made. The trocar was then removed leaving the catheter in place. 6 liters of clear, yellow, blood-tinged fluid was withdrawn using a vacuum bottle. Fluid was sent for cell count and differential and culture and sensitivities. The incision site was closed with exofin. Tegaderm were applied. 150 mL of 25% Albumin was administered during the course of the procedure to treat the patient for prophylactically for potential hypotension. Estimated Blood Loss: Estimated blood loss: none. Complications: No immediate complications. Impression: - Paracentesis successfully performed. - Test results pending. Recommendation: - Discharge patient to home (ambulatory). - Return to liver clinic as previously scheduled. - Repeat paracentesis PRN for therapeutic purposes. Attending Participation: I was present for the hooper portions of this procedure and either I or my colleague was immediately available for all non-hooper portions of the procedure. Procedure Code(s): --- Professional --- 61591, Abdominal paracentesis (diagnostic or therapeutic); with imaging guidance Diagnosis Code(s): --- Professional --- K70.31, Alcoholic cirrhosis of liver with ascites R18.8, Other ascites K74.60, Unspecified cirrhosis of liver K76.6, Portal hypertension N18.6, End stage renal disease CPT copyright 2016 [employer]. All rights reserved. The codes documented in this report are preliminary and upon rhinestone setter review may be revised to meet current compliance requirements. Sharmila Rangel PA-C 05/23/2019 1:32:29 PM This report has been signed electronically. ___ Radha Vines MD Note Initiated On: 05/23/2019 1:27 PM Number of Addenda: 0 [facility] [address] [place] [address] [facility] 05/23/2019 1:27 PM [facility] Sharmlia Rangel PA-C GI PROCEDURE OR DERABLES [facility] * LARGE VOLUME PARACENTESIS (05/12/2019 10:39 AM [facility]) Report Endoscopy POC Endoscopy Department Report _ Patient Name: Dominga Cuello Procedure Date: 05/12/2019 10:39 AM Date of : 1965 Classification: Outpatient Gender: Male Ethnicity: Not or Race: White _ Providers: Ranjit Garcia MD, Nicole Cronin (Fellow) Referring MD: Procedure: Paracentesis (Repeat) Indications: Ascites Medications: 1% Lidocaine 10 mL SubQ Comorbidities Ascites, Cirrhosis Patient Profile: This is a 53 year old male. Description of Procedure: Pre-Anesthesia Assessment: - Prior to the procedure, a History and Physical was performed, and patient medications and allergies were reviewed. The patient is competent. The risks and benefits of the procedure and the sedation options and risks were discussed with the patient. All questions were answered and informed consent was obtained. Patient identification and proposed procedure were verified by the physician and the nurse in the pre-procedure area. Mental Status Examination: alert and oriented. Respiratory Examination: clear to auscultation. CV Examination: normal. Prophylactic Antibiotics: The patient does not require prophylactic antibiotics. Prior Anticoagulants: The patient has taken no previous anticoagulant or antiplatelet agents. ASA Grade Assessment: III - A patient with severe systemic disease. After reviewing the risks and benefits, the patient was deemed in satisfactory condition to undergo the procedure. The anesthesia plan was to use no sedation or anesthesia. Immediately prior to administration of medications, the patient was re-assessed for adequacy to receive sedatives. The heart rate, respiratory rate, oxygen saturations, blood pressure, adequacy of pulmonary ventilation, and response to care were monitored throughout the procedure. The physical status of the patient was re-assessed after the procedure. After obtaining informed consent, the procedure was performed. Throughout the procedure, the patient's blood pressure, pulse, and oxygen saturations were monitored continuously.The paracentesis was accomplished without difficulty. The patient tolerated the procedure well. Findings: With the patient in a supine position, the procedure site was sterilely prepped using Hibiclens and draped in the usual fashion. 10 mL of 1% lidocaine with epinephrine was infiltrated into the skin and subcutaneous tissues. Using a left lower quadrant approach, a small stab incision was made with a disposable blade and a paracentesis needle with overlying catheter was inserted into the peritoneal cavity under ultrasound guidance. Aspiration demonstrated return of blood tinged fluid. The needle was repositioned and good return of peritoneal fluid was obtained. One pass was made. A guidewire was inserted and the needle removed. The catheter was passed over the guidewire and the guidewire was then removed. Fluid was sent for cell count and differential, Gram stain and culture and sensitivities. 7 liters of blood-tinged fluid was withdrawn using a vacuum bottle. Estimated blood loss was minimal. Estimated Blood Loss: Estimated blood loss was minimal. Complications: No immediate complications. Impression: - Paracentesis successfully performed. Recommendation: - Discharge patient to home (ambulatory). - Patient has a contact number available for emergencies. The signs and symptoms of potential delayed complications were discussed with the patient. Return to normal activities tomorrow. Written discharge instructions were provided to the patient. - Low sodium diet. - Return to liver clinic as previously scheduled. Attending Participation: I personally performed the entire procedure without the assistance of a fellow, resident or surgical specialist. Procedure Code(s): --- Professional --- 85949, Abdominal paracentesis (diagnostic or therapeutic); with imaging guidance Diagnosis Code(s): --- Professional --- R18.8, Other ascites K74.60, Unspecified cirrhosis of liver CPT copyright 2016 [employer]. All rights reserved. The codes documented in this report are preliminary and upon rhinestone setter review may be revised to meet current compliance requirements. _ Ranjit Garcia MD 05/15/2019 9:01:39 AM Note Initiated On: 05/12/2019 10:39 AM Number of Addenda: 0 [facility] [address] at [facility] [place] [address] [facility] 05/12/2019 10:3 9 AM TREE PULLER Nicole Cronin MD GI PROCEDUR E ORDERABLES [facility] * VAS MAPPING FOR HEMODIALYSIS (05/09/2019 1:47 PM TREE PULLER) Anatomical Region Laterality Modality Intravascular Ul trasound 05/09/2019 12:5 3 PM TREE PULLER Narrative Procedure Note Mirza Hadley MD - 05/09/2019 Kiko Pena MD VASCULAR LAB ORDER MALIHA * LARGE VOLUME PARACENTESIS (04/30/2019 11:29 AM CDT) Report Endoscopy POC Endoscopy Department Report __ _ Patient Name: Dominga Cuello Procedure Date: 04/30/2019 11:29 AM Date of : 1965 Classification: Outpatient Gender: Male Ethnicity: Not or Race: White __ _ Providers: Jaqueline Park NP, Radha Vines MD Referring MD: Procedure: Paracentesis (Repeat) Indications: Ascites, Ascites shown on ultrasound, Cirrhosis, Portal hypertension Medications: 1% Lidocaine 10 mL SubQ Description of Procedure: After obtaining informed consent, the procedure was performed. Throughout the procedure, the patient's blood pressure, pulse, and oxygen saturations were monitored continuously. The paracentesis was accomplished without difficulty. The patient tolerated the procedure well. Findings: With the patient in a supine with head elevated position, the procedure site was sterilely prepped using chloroprep and draped in the usual fashion. 10 mL of 1% lidocaine with epinephrine was infiltrated into the skin and subcutaneous tissues. Using a left lower quadrant approach, a small stab incision was made with a disposable blade and a 5 inch 16 gauge paracentesis needle and cannula system was inserted into the peritoneal cavity under ultrasound guidance. Aspiration demonstrated good return of peritoneal fluid. One pass was made. The trocar was then removed leaving the catheter in place. 2.5 liters of clear, yellow fluid was withdrawn using a vacuum bottle. Fluid was sent for cell count and differential and culture and sensitivities. when the procedre was competed the catheter was removed intact the puncture wound was closed using exofin and covered with tegaderm 200 mL of 25% Albumin was administered during the course of the procedure to treat the patient for underlying renal failure and for prophylactically for potential hypotension. Estimated Blood Loss: Estimated blood loss was minimal. Complications: No immediate complications. Impression: - Paracentesis successfully performed. Recommendation: - Discharge patient to home (ambulatory). - Low sodium diet indefinitely. - Return to GI clinic as previously scheduled. Attending Participation: I was present for the hooper portions of this procedure and either I or my colleague was immediately available for all non-hooper portions of the procedure. Procedure Code(s): --- Professional --- 97010, Abdominal paracentesis (diagnostic or therapeutic); with imaging guidance Diagnosis Code(s): --- Professional --- R18.8, Other ascites K74.60, Unspecified cirrhosis of liver K76.6, Portal hypertension CPT copyright 2016 [employer]. All rights reserved. The codes documented in this report are preliminary and upon rhinestone setter review may be revised to meet current compliance requirements. Jaqueline Park APN ____ Jaqueline Park NP 04/30/2019 11:46:36 AM This report has been signed electronically. ___ Radha Vines MD Note Initiated On: 04/30/2019 11:29 AM Number of Addenda: 1 [facility] [address] at [facility] [place] [address] __ _ Addendum Number: 1 Addendum Date: 04/30/2019 12:22:16 PM patient has 8.0 liters of clear yellow peritneal fluid removed Jaqueline Park APN ____ Jaqueline Park NP 04/30/2019 12:36:13 PM This report has been signed electronically. 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 GI PROCEDURE ORDERABLES [facility] * LARGE VOLUME PARACENTESIS (04/14/2019 12:03 PM CDT) Report Endoscopy POC Endoscopy Department Report __ _ Patient Name: Dominga Cuello Procedure Date: 04/14/2019 3:29 PM Date of : 1965 Classification: Outpatient Gender: Male Ethnicity: Not or Race: White __ _ Providers: Sharmila Rangel PA-C, Jovana Lee MD Referring MD: Procedure: Paracentesis (Repeat) Indications: Ascites, Ascites shown on ultrasound, Diagnostic to rule out peritonitis, Cirrhosis (Alcoholic), Portal hypertension, End stage renal disease Medications: 1% Lidocaine 10 mL SubQ Description of Procedure: After obtaining informed consent, the procedure was performed. Throughout the procedure, the patient's blood pressure, pulse, and oxygen saturations were monitored continuously. The paracentesis was accomplished without difficulty. The patient tolerated the procedure well. Findings: Prior to the procedure, the abdomen was examined and demonstrated significant distention with ascites and a fluid wave to be present. With the patient in a supine with head elevated position, the procedure site was sterilely prepped using chloroprep and draped in the usual fashion. 10 mL of 1% lidocaine was infiltrated into the skin and subcutaneous tissues. Using a left lower quadrant approach, a small stab incision was made with a disposable blade and a 5 inch 12 gauge paracentesis needle and cannula system was inserted into the peritoneal cavity under ultrasound guidance. Aspiration demonstrated no blood and good return of peritoneal fluid. One pass was made. The trocar was then removed leaving the catheter in place. 8 liters of clear, yellow fluid was withdrawn using a vacuum bottle. Fluid was sent for cell count and differential and culture and sensitivities. The incision site was closed with exofin. Tegaderm were applied. 200 mL of 25% Albumin was administered during the course of the procedure to treat the patient for underlying renal failure and for prophylactically for potential hypotension. Estimated Blood Loss: Estimated blood loss: none. Complications: No immediate complications. Impression: - Paracentesis successfully performed. - Test results pending. Recommendation: - Transfer patient to main endoscopy unit for next regularly scheduled procedure. - Return to liver clinic as previously scheduled. - Repeat paracentesis PRN for therapeutic purposes. Attending Participation: I was present for the hooper portions of this procedure and either I or my colleague was immediately available for all non-hooper portions of the procedure. Procedure Code(s): --- Professional --- 18807, Abdominal paracentesis (diagnostic or therapeutic); with imaging guidance Diagnosis Code(s): --- Professional --- K70.30, Alcoholic cirrhosis of liver without ascites R18.8, Other ascites K70.31, Alcoholic cirrhosis of liver with ascites K76.6, Portal hypertension N18.6, End stage renal disease CPT copyright 2016 [employer]. All rights reserved. The codes documented in this report are preliminary and upon rhinestone setter review may be revised to meet current compliance requirements. Sharmila Rangel PA-C 04/14/2019 3:35:52 PM This report has been signed electronically. Jovana Lee MD Note Initiated On: 04/14/2019 3:29 PM Number of Addenda: 0 [facility] [address] [place] [address] [facility] 04/14/2019 12:0 3 PM CDT Sharmila Rangel PA-C GI PROCEDURE OR DERABLES [facility] * TRANSFUSE RED BLOOD CELL LEUKOREDUCED UNIT(S) (04/03/2019 5:19 PM CDT) Sharmila Rangel PA-C NURSING - BLOOD PROD TRANSFUSION * LARGE VOLUME PARACENTESIS (04/03/2019 2:42 PM CDT) Report Endoscopy POC Endoscopy Department Report _ Patient Name: Dominga Cuello Procedure Date: 04/03/2019 2:42 PM Date of : 1965 Classification: Outpatient Gender: Male Ethnicity: Not or Race: White _ Providers: Sharmila Rangel PA-C, Timi Hanna MD Referring MD: Procedure: Paracentesis (Repeat) Indications: Ascites, Ascites shown on ultrasound, Diagnostic to rule out peritonitis, Cirrhosis, Cirrhosis (Alcoholic), Portal hypertension, End stage renal disease Medications: 1% Lidocaine 10 mL SubQ Description of Procedure: After obtaining informed consent, the procedure was performed. Throughout the procedure, the patient's blood pressure, pulse, and oxygen saturations were monitored continuously. The paracentesis was accomplished without difficulty. The patient tolerated the procedure well. Findings: Prior to the procedure, the abdomen was examined and demonstrated significant distention with ascites and a fluid wave to be present. With the patient in a supine with head elevated position, the procedure site was sterilely prepped using chloroprep and draped in the usual fashion. 10 mL of 1% lidocaine was infiltrated into the skin and subcutaneous tissues. Using a left lower quadrant approach, a small stab incision was made with a disposable blade and a 5 inch 12 gauge paracentesis needle and cannula system was inserted into the peritoneal cavity under ultrasound guidance. Aspiration demonstrated no blood and good return of peritoneal fluid. One pass was made. The trocar was then removed leaving the catheter in place. 7 liters of clear, yellow fluid was withdrawn using a vacuum bottle. Fluid was sent for cell count and differential and culture and sensitivities. The incision site was closed with exofin. Tegaderm were applied. 100 mL of 25% Albumin was administered during the course of the procedure to treat the patient for hypotension and for underlying renal failure. 2 units of blood was administered after the procedure. Estimated Blood Loss: Estimated blood loss: none. Estimated blood loss: none. Complications: No immediate complications. Impression: - Paracentesis successfully performed. - Test results pending. Recommendation: - Discharge patient to home (ambulatory). - Return to liver clinic as previously scheduled. - Repeat paracentesis PRN for therapeutic purposes. Attending Participation: I was present for the hooper portions of this procedure and either I or my colleague was immediately available for all non-hooper portions of the procedure. Procedure Code(s): --- Professional --- 76658, Abdominal paracentesis (diagnostic or therapeutic); with imaging guidance Diagnosis Code(s): --- Professional --- K70.31, Alcoholic cirrhosis of liver with ascites R18.8, Other ascites K74.60, Unspecified cirrhosis of liver K76.6, Portal hypertension N18.6, End stage renal disease CPT copyright 2016 [employer]. All rights reserved. The codes documented in this report are preliminary and upon rhinestone setter review may be revised to meet current compliance requirements. Sharmila Rangel PA-C 04/03/2019 3:02:42 PM This report has been signed electronically. __ Timi Hanna MD Note Initiated On: 04/03/2019 2:42 PM Number of Addenda: 0 [facility] [address] [facility] [place] [address] [facility] 04/03/2019 2:42 PM CDT Sharmila Rangel PA-C GI PROCEDURE OR DERABLES [facility] * TRANSFUSE RED BLOOD CELL LEUKOREDUCED UNIT(S) (04/03/2019 2:26 PM CDT) Sharmila Rangel PA-C NURSING - BLOOD PROD TRANSFUSION * LARGE VOLUME PARACENTESIS (03/27/2019 3:55 PM CDT) Report Endoscopy POC Endoscopy Department Report __ _ Patient Name: Dominga Cuello Procedure Date: 03/27/2019 3:55 PM Date of : 1965 Classification: Outpatient Gender: Male Ethnicity: Not or Race: White __ _ Providers: Sharmila Rangel PA-C, Timi Hanna MD Referring MD: Procedure: Paracentesis (Repeat) Indications: Ascites, Ascites shown on ultrasound, Diagnostic to rule out peritonitis, Cirrhosis, Cirrhosis (Alcoholic), Portal hypertension, End stage renal disease Medications: 1% Lidocaine 10 mL SubQ Description of Procedure: After obtaining informed consent, the procedure was performed. Throughout the procedure, the patient's blood pressure, pulse, and oxygen saturations were monitored continuously. The paracentesis was accomplished without difficulty. The patient tolerated the procedure well. Findings: Prior to the procedure, the abdomen was examined and demonstrated significant distention with ascites and a fluid wave to be present. With the patient in a supine with head elevated position, the procedure site was sterilely prepped using chloroprep and draped in the usual fashion. 10 mL of 1% lidocaine was infiltrated into the skin and subcutaneous tissues. Using a left lower quadrant approach, a small stab incision was made with a disposable blade and a 5 inch 12 gauge paracentesis needle and cannula system was inserted into the peritoneal cavity under ultrasound guidance. Aspiration demonstrated no blood and good return of peritoneal fluid. One pass was made. The trocar was then removed leaving the catheter in place. 9 liters of clear, yellow fluid was withdrawn using a vacuum bottle. Fluid was sent for cell count and differential and culture and sensitivities. The incision site was closed with exofin. Tegaderm were applied. 250 mL of 25% Albumin was administered during the course of the procedure to treat the patient for prophylactically for potential hypotension. Estimated Blood Loss: Estimated blood loss: none. Complications: No immediate complications. Impression: - Paracentesis successfully performed. - Test results pending. Recommendation: - Discharge patient to home (ambulatory). - Return to liver clinic as previously scheduled. - Repeat paracentesis PRN for therapeutic purposes. Attending Participation: I was present for the hooper portions of this procedure and either I or my colleague was immediately available for all non-hooper portions of the procedure. Procedure Code(s): --- Professional --- 19693, Abdominal paracentesis (diagnostic or therapeutic); with imaging guidance Diagnosis Code(s): --- Professional --- K70.31, Alcoholic cirrhosis of liver with ascites R18.8, Other ascites K74.60, Unspecified cirrhosis of liver K76.6, Portal hypertension N18.6, End stage renal disease CPT copyright 2016 [employer]. All rights reserved. The codes documented in this report are preliminary and upon rhinestone setter review may be revised to meet current compliance requirements. Sharmila Rangel PA-C 03/27/2019 4:00:36 PM This report has been signed electronically. Timi Hanna MD Note Initiated On: 03/27/2019 3:55 PM Number of Addenda: 0 [facility] [address] [place] [id number] [facility] 03/27/2019 3:55 PM CDT Sharmila Rangel PA-C GI PROCEDURE OR DERABLES [facility] * HEPATITIS SCREEN ACUTE (03/10/2019 10:09 AM CDT) Hepatitis A Virus Antibody IgM Non-react jaedn Non-reac tive 03/10/2019 11:15 AM CDT [facility] Hepatitis B Virus Surface Antigen Non-react jaden Non-reac tive 03/10/2019 11:15 AM CDT [facility] Hepatitis B Core Virus Antibody IgM Non-react jaden Non-reac tive 03/10/2019 11:15 AM CDT [facility] Hepatitis C Antibody Non-react jaden Non-reac tive 03/10/2019 11:15 AM CDT [facility] Comment: Hepatitis C Antibody screen indicates no serologic evidence of past or current infection with Hepatitis C Virus. Patients with unexplained liver disease who are immunocompromised or suspected of having acute Hepatitis C infection may benefit from Nucleic Acid Test ([facility]) for Hepatitis C Viral RNA to confirm Hepatitis C status. Blood BLOOD SPECIMEN / Unknown Lab Venipuncture / Unknown 03/10/2019 10:09 AM CDT 03/10/2019 10:09 AM CDT Carlos Sanders MD LAB - CHEMISTRY ORDERABLES Performing Organization Address City/[facility]/ZIP Co de Phone Number [address] [phone] * (ABNORMAL) CYTOMEGALOVIRUS AB IGG (03/10/2019 8:18 AM CDT) [facility] Cytomegalovirus Antibody IgG >10.00(H) 0.00 - 0.59 U/mL 03/11/2019 8:07 PM CDT [facility] ([facility]) Comment: Negative <0.60 Equivocal 0.60 - 0.69 Positive >0.69 Blood BLOOD SPECIMEN / Unknown Lab Venipuncture / Unknown 03/10/2019 8:18 AM CDT 03/10/2019 8:27 AM CDT Narrative [facility] ([facility]) - 03/11/2019 8:07 PM CDT Performed at: [address] [id number] Clerk: Floyd Lipscomb MD, Phone: [phone] Julianna Maurer MD LAB - CHEMISTRY OR DERABLES [facility] ([facility]) [address] [place] [address] * KATIE-TRINIDAD VIRUS AB TO EARLY AG IGG (03/10/2019 8:18 AM CDT) Katie-Trinidad Virus Early Antigen Antibody IgG <9.0 0.0 - 8.9 U/mL 03/11/2019 3:08 PM CDT [facility] ([facility]) Comment: Negative < 9.0 Equivocal 9.0 - 10.9 Positive >10.9 Blood BLOOD SPECIMEN / Unknown Lab Venipuncture / Unknown 03/10/2019 8:18 AM CDT 03/10/2019 8:27 AM CDT Narrative [facility] ([facility]) - 03/11/2019 3:08 PM CDT Performed at: [facility] [address] [place] [id number] Clerk: Gilberto Coburn PhD, Phone: [phone] Julianna Maurer MD LAB - CHEMISTRY OR DERABLES [facility]) [address] [place] [address] * LAB MISC TEST (03/09/2019 7:00 PM CDT) Pathologist [facility] Test Name PETH (Phosphatid ylethanol) 03/21/2019 1:48 PM CDT [facility] Test Result See Scanned Report 03/21/2019 1:48 PM CDT [facility] Blood BLOOD SPECIMEN / Unknown Lab Venipuncture / Unknown 03/09/2019 7:00 PM CDT 03/09/2019 7:00 PM CDT Julianna Maurer MD LAB SEND OUT [facility] [address] [place] [address] * CULTURE URINE (03/08/2019 5:30 PM CDT) Only the most recent of2 resultswithin the time period is included. Pathologist [facility] Culture Urine No growth (<100 CFU/mL) LEANNE 03/10/2019 5:[address] [facility] Urine URINE SPECIMEN OBTAINED BY SINGLE CATHETERIZATION OF URINARY BLADDER / Unknown Collection / Unknown 03/08/2019 5:30 PM CDT 03/08/2019 5:39 PM CDT Julianna Maurer MD LAB - MICROBIOLOGY ORDERABLES [facility] [address] [place], [place] [address], [facility] [phone] * EGD (03/07/2019 3:14 PM CDT) Report Endoscopy POC Endoscopy Department Report __ _ Patient Name: Dominga Cuello Procedure Date: 03/07/2019 3:14 PM Date of : 1965 Classification: Inpatient Gender: Male Ethnicity: Not or Race: White __ _ Providers: Yfn Jaime (Fellow) Referring MD: Procedure: Upper GI endoscopy Indications: Acute post hemorrhagic anemia Medications: Monitored Anesthesia Care Description of Procedure: Pre-Anesthesia Assessment: - Prior to the procedure, a History and [...] anticoagulant or antiplatelet agents. ASA Grade Assessment: IV - A patient with severe systemic disease that is a constant threat to life. After reviewing the risks and benefits, the [...] The patient tolerated the procedure well. Findings: Grade II varices were found in the lower third of the esophagus with no stigmata of recent bleeding. Esophagogastric landmarks were identified: the Z-line was found at 42 cm, the gastroesophageal junction was found at 42 cm, the site of hiatal narrowing was found at 42 cm and the site of hiatal narrowing was found at 44 cm from the incisors. consistent with small hiatal hernia A medium amount of food (residue) was found in the cardia. Moderate portal hypertensive gastropathy was found in the stomach, ozzing blood, likely the source of bleeding. Coagulation for hemostasis using argon plasma was successful. The duodenal bulb, first portion of the duodenum and second portion of the duodenum were normal. Estimated Blood Loss: Estimated blood loss was minimal. Complications: No immediate complications. Impression: - Grade II esophageal varices with no stigma of recent bleeding. - Esophagogastric landmarks identified, 2 cm hiatal hernia - Food (residue) in the stomach. - Portal hypertensive gastropathy. Treated with argon plasma coagulation (APC). this was oozing blood and the likely source of bleeding - Normal duodenal bulb, first portion of the duodenum and second portion of the duodenum. - No specimens collected. Recommendation: - [facility] for [facility] care. - Resume previous diet. - Check H. Pylori serology. - Continue PPI po. D/C octreotide. - Start and uptitrate non-selective beta blockers as tolerated Attending Participation: I was present and participated during the entire procedure, including non-hooper portions. Procedure Code(s): --- Professional --- 45576, Esophagogastroduode noscopy, flexible, transoral; with control of bleeding, any method Diagnosis Code(s): --- Professional --- I85.00, Esophageal varices without bleeding K76.6, Portal hypertension K31.89, Other diseases of stomach and duodenum D62, Acute posthemorrhagic anemia CPT copyright 2016 [employer]. All rights reserved. The codes documented in this report are preliminary and upon rhinestone setter review may be revised to meet current compliance requirements. Arpan Weber, 03/07/2019 3:58:51 PM Note Initiated On: 03/07/2019 3:14 PM Number of Addenda: 0 [facility] [address] [place] [address] [facility] 03/07/2019 3:14 PM CDT Livia Alejandre MD GI PRO CEDURE ORDERABLES [facility] [employer] * TRANSFUSE PLATELET PHERESIS UNIT(S) (03/07/2019 9:59 AM CDT) Srinath Bond MD NURSING - BLOOD PROD TRANSFUSION * IR CENTRAL LINE INSERT TUNNEL (03/07/2019 9:42 AM CDT) Anatomical Region Laterality Modality X-Ray Angiograph y 03/07/2019 10:2 8 AM CDT Impressions 03/07/2019 10:30 AM CDT Impression: Successful placement of right internal jugular tunneled dialysis catheter. I was present for the entire procedure. This report was electronically signed by TRAV PANDEY MD on 03/07/2019 10:30 AM . Narrative 03/07/2019 10:30 AM CDT This is an interventional nephrology procedure performed on 03/07/19 Attending/Hr Specialist: Christie Pandey M.D. Scaffold Worker: Tamar Albright M.D. Procedures performed: 1. Insertion of tunneled central venous catheter 2. Fluoroscopic guidance for central venous catheter procedure 3. Ultrasound guidance for vascular access with permanent recording. This patient was referred for placement of tunneled dialysis catheter. Following informed consent he was taken to the angiography suite and placed on the fluoroscopy table. The skin of the right neck and chest was prepared with chlorhexidine and sterile drapes were applied. Under real time ultrasound guidance, the right internal jugular vein was accessed with a micropuncture needle, a srivastava scale image was recorded and a microfilament wire was advanced to the central veins under fluoroscopic guidance. A 5 Singaporean trocar was placed and a 0.035 guidewire was then advanced through the trocar and was manipulated into the IVC. An exit site was chosen on the chest wall and anesthetized with lidocaine. Using a metal tunneling device, a 24 cm Duraflow 2 dialysis access catheter was brought through a subcutaneous tunnel to the venotomy incision and prepared for insertion. Serial dilators were utilized to create a track to the jugular vein sufficient to accommodate a peel-away sheath which was inserted over the guidewire and the inner stylet was removed. The catheter was inserted through the sheath which was then removed. The catheter was adjusted for length under fluoroscopy such that the tip was at the junction of the SVC and RA. Both lumens flushed easily and were locked with heparin. The catheter was sutured in place with 2-0 nylon and a CHG dressing was placed. The venotomy incision was closed with a 2-0 nylon suture. Moderate sedation on this adult patient was ordered by me, administered intravenously in my presence, and monitored by the procedure nurse as an independent trained observer who was present throughout the procedure. The following parameters were monitored: oxygen saturation, heart rate, blood pressure, and response to care. Intra-service sedation start time was 0927 and end time was 0946 during which I was present. Total physician intra-service sedation time was 19 minutes. For details on pre-moderate sedation and post-moderate sedation patient evaluation, please review the evaluation forms in [facility]. For details on monitored clinical parameters during the intra-service sedation time, please review the procedure nurse documentation in [facility]. Procedure Note Trav Pandey MD - 03/07/2019 This is an interventional nephrology procedure performed on 03/07/19 Attending/Hr Specialist: Christie Pandey M.D. Scaffold Worker: Tamar Albright M.D. Procedures performed: 1. Insertion of tunneled central venous catheter 2. Fluoroscopic guidance for central venous catheter procedure 3. Ultrasound guidance for vascular access with permanent recording. This patient was referred for placement of tunneled dialysis catheter. Following informed consent he was taken to the angiography suite and placed on the fluoroscopy table. The skin of the right neck and chestwas prepared with chlorhexidine and sterile drapes were applied. Under real time ultrasound guidance, the right internal jugular vein was accessed with a micropuncture needle, a srivastava scale image was recorded and a microfilament wire was advanced to the central veins under fluoroscopic guidance. A 5 Singaporean trocar was placed and a 0.035 guidewire was then advanced through the trocar and was manipulated into the IVC. An exit site was chosen on the chest wall and anesthetized with lidocaine.Using a metal tunneling device, a 24 cm Duraflow 2 dialysis access catheterwas brought through a subcutaneous tunnel to the venotomy incision and prepared for insertion. Serial dilators were utilized to create a track to the jugular vein sufficient to accommodate a peel-away sheath whichwas inserted over the guidewire and the inner stylet was removed. The catheter was inserted through the sheath which was then removed. The catheter was adjusted for length under fluoroscopy such that the tip was at the junction of the SVC and RA. Both lumens flushed easily and were locked with heparin. The catheter was sutured in place with 2-0 nylonand a CHG dressing was placed. The venotomy incision was closed with a 2-0 nylon suture. Moderate sedation on this adult patient was ordered by me, administered intravenously in my presence, and monitored by the procedure nurse as an independent trained observer who was present throughout the procedure.The following parameters were monitored: oxygen saturation, heart rate,blood pressure, and response to care. Intra-service sedation start time [id number] and end time was 945 during which I was present. Total physician intra-service sedation time was 19 minutes. For details on pre-moderate sedation and post-moderate sedation patient evaluation, please reviewthe evaluation forms in [facility]. For details on monitored clinical parameters during the intra-service sedation time, please review the procedurenurse documentation in [facility]. Impression: Successful placement of right internal jugular tunneled dialysis catheter. I was present for the entire procedure. This report was electronically signed by TRAV PANDEY MD on 03/07/2019 10:30 AM . Carlos Sanders MD IR ORDERABLES * RETIC COUNT (03/07/2019 6:00 AM CDT) Only the most recent of2 resultswithin the time period is included. Reticulocyte % 2.0 0.4 - 2.5 % 03/07/2019 6:45 AM CDT [facility] Reticulocyte Absolute 0.05 0.02 - 0.13 10 6/uL 03/07/2019 6:45 AM CDT [facility] Blood BLOOD SPECIMEN / Unknown Venipuncture / Unknown 03/07/2019 6:00 AM CDT 03/07/2019 6:24 AM CDT [facility] - HEMATOLOGY ORD ERABLES [address] [phone] * LDH BLOOD (03/07/2019 6:00 AM CDT) Only the most recent of2 resultswithin the time period is included. LDH Total 171 125 - 243 Units/L 03/07/2019 7:00 AM CDT [facility] Blood BLOOD SPECIMEN / Unknown Venipuncture / Unknown 03/07/2019 6:00 AM CDT 03/07/2019 6:24 AM CDT [facility] - CHEMISTRY ORDE RABRADHA Performing Organization Address [facility]/ZIP Co de Phone Number [address] [phone] * HAPTOGLOBIN (03/07/2019 6:00 AM CDT) Only the most recent of2 resultswithin the time period is included. Haptoglobin 63 14 - 258 mg/dL 03/07/2019 6:56 AM CDT [facility] Blood BLOOD SPECIMEN / Unknown Venipuncture / Unknown 03/07/2019 6:00 AM CDT 03/07/2019 6:24 AM CDT [facility] - CHEMISTRY ORDE RABLES Performing Organization Address City/[facility]/ZIP Co de Phone Number [address] [phone] * TRANSFUSE RED BLOOD CELL LEUKOREDUCED UNIT(S) (03/07/2019 4:21 AM CDT) Srinath Bond MD NURSING - BLOOD PROD TRANSFUSION * TRANSFUSE RED BLOOD CELL LEUKOREDUCED UNIT(S) (03/06/2019 11:15 PM CDT) Sagar Shipley DO NURSING - BLOOD PROD TRANSFUSION * TRANSFUSE PLATELET PHERESIS UNIT(S) (03/06/2019 5:41 PM CDT) Cliff Escalera MD NURSING - BLOOD PROD TRANSFUSION * TRANSFUSE PLATELET PHERESIS UNIT(S) (03/06/2019 5:08 PM CDT) Cliff Escalera MD NURSING - BLOOD PROD TRANSFUSION * TRANSFUSE PLATELET PHERESIS UNIT(S) (03/06/2019 3:50 PM CDT) Cliff Escalera MD NURSING - BLOOD PROD TRANSFUSION * TRANSFUSE PLATELET PHERESIS UNIT(S) (03/06/2019 3:07 PM CDT) Cliff Escalera MD NURSING - BLOOD PROD TRANSFUSION * (ABNORMAL) URINALYSIS NO MICROSCOPIC NO CULTURE (03/06/2019 6:38 AM CDT) Color UA Yellow Straw, Yellow, Colorless 03/06/2019 6:57 AM [facility] Clarity UA Cloudy(A) Clear, t Cloudy 03/06/2019 6:57 AM [facility] Specific [place] UA 1.013 1.005 - 1.030 03/06/2019 6:57 AM [facility] pH UA 5.0 5.0 - 8.0 pH 03/06/2019 6:57 AM [facility] Protein UA 2+(A) Negative mg/dL 03/06/2019 6:57 AM [facility] Glucose UA Negative Negative mg/dL 03/06/2019 6:57 AM [facility] Ketone UA Negative Negative mg/dL 03/06/2019 6:57 AM [facility] Bilirubin UA Negative Negative mg/dL 03/06/2019 6:57 AM [facility] Blood UA 3+(A) Negative 03/06/2019 6:57 AM [facility] Nitrite UA Negative Negative 03/06/2019 6:57 AM [facility] Leukocyte Esterase Negative Negative 03/06/2019 6:57 AM CDT [facility] Urobilinogen UA Negative Negative mg/dL 03/06/2019 6:57 AM CDT [facility] Urine URINE SPECIMEN OBTAINED BY SINGLE CATHETERIZATION OF URINARY BLADDER / Unknown Collection / Unknown 03/06/2019 6:38 AM CDT 03/06/2019 6:41 AM CDT Narrative [facility] - 03/06/2019 6:57 AM CDT Noé Martino MD LAB - URINALYSIS O RDERABLES [address] [phone] * SODIUM URINE RANDOM (03/06/2019 6:38 AM CDT) Only the most recent of3 resultswithin the time period is included. Sodium Urine 23 Not Established mmol/L 03/06/2019 7:00 AM CDT [facility] Urine URINE SPECIMEN OBTAINED BY CLEAN CATCH PROCEDURE / Unknown Collection / Unknown 03/06/2019 6:38 AM CDT 03/06/2019 6:41 AM CDT Noé Martino MD LAB - URINE CHEMIS TRY ORDERABLES Performing Organization Address [facility] Co de Phone Number [address] [phone] * UREA NITROGEN URINE RANDOM (03/06/2019 6:38 AM CDT) Only the most recent of3 resultswithin the time period is included. Urea Nitrogen Random Urine 616 Not Established mg/dL 03/06/2019 7:00 AM CDT [facility] Urine URINE SPECIMEN OBTAINED BY CLEAN CATCH PROCEDURE / Unknown Collection / Unknown 03/06/2019 6:38 AM CDT 03/06/2019 6:41 AM CDT Noé Martino MD LAB - URINE CHEMIS TRY ORDERABLES Performing Organization Address [facility] Co de Phone Number [address] [phone] * POTASSIUM URINE RANDOM (03/06/2019 6:38 AM CDT) Potassium Urine 30 Not Established mmol/L 03/06/2019 7:00 AM CDT [facility] Urine URINE SPECIMEN OBTAINED BY CLEAN CATCH PROCEDURE / Unknown Collection / Unknown 03/06/2019 6:38 AM CDT 03/06/2019 6:41 AM CDT Noé Martino MD LAB - URINE CHEMIS TRY ORDERABLES [facility] [address] [phone] * LARGE VOLUME PARACENTESIS (02/20/2019 2:24 PM CDT) Report Endoscopy POC Endoscopy Department Report _ Patient Name: Dominga Cuello Procedure Date: 02/20/2019 2:24 PM Date of : 1965 Classification: Outpatient Gender: Male Ethnicity: Not or Race: White _ Providers: Sharmila Rangel PA-C, Ranjit Garcia MD Referring MD: Procedure: Paracentesis (Repeat) Indications: Ascites, Ascites shown on ultrasound, Diagnostic to rule out peritonitis, Cirrhosis, Cirrhosis (Alcoholic), Portal hypertension, End stage renal disease Medications: 1% Lidocaine 10 mL SubQ Description of Procedure: After obtaining informed consent, the procedure was performed. Throughout the procedure, the patient's blood pressure, pulse, and oxygen saturations were monitored continuously. The paracentesis was accomplished without difficulty. The patient tolerated the procedure well. Findings: Prior to the procedure, the abdomen was examined and demonstrated significant distention with ascites and a fluid wave to be present. With the patient in a supine with head elevated position, the procedure site was sterilely prepped using chloroprep and draped in the usual fashion. 10 mL of 1% lidocaine was infiltrated into the skin and subcutaneous tissues. Using a left lower quadrant approach, a small stab incision was made with a disposable blade and a 5 inch 12 gauge paracentesis needle and cannula system was inserted into the peritoneal cavity under ultrasound guidance. Aspiration demonstrated no blood and good return of peritoneal fluid. One pass was made. The trocar was then removed leaving the catheter in place. 10 liters of clear, yellow fluid was withdrawn using a vacuum bottle. Fluid was sent for cell count and differential and culture and sensitivities. Estimated Blood Loss: Estimated blood loss: none. Complications: No immediate complications. Impression: - Paracentesis successfully performed. - Test results pending. Recommendation: - Discharge patient to home (ambulatory). - Return to liver clinic as previously scheduled. - Repeat paracentesis PRN for therapeutic purposes. Attending Participation: I was present for the hooper portions of this procedure and either I or my colleague was immediately available for all non-hooper portions of the procedure. Procedure Code(s): --- Professional --- 73665, Abdominal paracentesis (diagnostic or therapeutic); with imaging guidance Diagnosis Code(s): --- Professional --- K70.31, Alcoholic cirrhosis of liver with ascites R18.8, Other ascites K74.60, Unspecified cirrhosis of liver K76.6, Portal hypertension N18.6, End stage renal disease CPT copyright 2016 [employer]. All rights reserved. The codes documented in this report are preliminary and upon rhinestone setter review may be revised to meet current compliance requirements. Sharmila Rangel PA-C 02/20/2019 2:30:44 PM This report has been signed electronically. ___ Ranjit Garcia MD Note Initiated On: 02/20/2019 2:24 PM Number of Addenda: [address] [employer] 02/20/2019 2:24 PM CDT Sharmila Rangel PA-C GI PROCEDURE OR DERABLES Performing Organization Address [facility] Co de Phone Number [facility] * TRANSFUSE RED BLOOD CELL LEUKOREDUCED UNIT(S) (02/08/2019 7:59 PM CDT) Janice Mcpherson DO NURSING - BLOOD PROD TRANSFUSION * TRANSFUSE RED BLOOD CELL LEUKOREDUCED UNIT(S) (02/08/2019 12:58 AM CDT) Janice Mcpherson DO NURSING - BLOOD PROD TRANSFUSION * OSMOLALITY URINE (02/07/2019 1:02 PM CDT) Osmolality Urine 235 50 - 1,200 mOsm/kg 02/07/2019 3:11 PM CDT [facility] Urine URINE SPECIMEN OBTAINED BY CLEAN CATCH PROCEDURE / Unknown Collection / Unknown 02/07/2019 1:02 PM CDT 02/07/2019 1:02 PM CDT Janice Mcpherson DO LAB - URINE CHEMISTR Y ORDERABLES Performing Organization Address [facility] Co de Phone Number [address] [phone] * (ABNORMAL) OSMOLALITY BLOOD (02/07/2019 6:55 AM CDT) Osmolality 305(H) 270 - 300 mOsm/kg 02/07/2019 8:16 AM CDT [facility] Blood BLOOD SPECIMEN / Unknown Lab Venipuncture / Unknown 02/07/2019 6:55 AM CDT 02/07/2019 7:15 AM CDT Janice Mcpherson DO LAB - CHEMISTRY ORDE RABLES Performing Organization Address City/[facility]/ZIP Co de Phone Number [id number] [place] [address], [facility] [phone] * LARGE VOLUME PARACENTESIS (02/06/2019 2:56 PM CDT) Report Endoscopy POC Endoscopy Department Report __ _ Patient Name: Dominga Cuello Procedure Date: 02/06/2019 2:56 PM Date of : 1965 Classification: Outpatient Gender: Male Ethnicity: Not or Race: White __ _ Providers: Sharmila Rangel PA-C, Leroy Quinn MD Referring MD: Procedure: Paracentesis (Repeat) Indications: Ascites, Ascites shown on ultrasound, Diagnostic to rule out peritonitis, Cirrhosis, Cirrhosis (Alcoholic), Portal hypertension, Nephropathy Medications: 1% Lidocaine 10 mL SubQ Description of Procedure: After obtaining informed consent, the procedure was performed. Throughout the procedure, the patient's blood pressure, pulse, and oxygen saturations were monitored continuously. The paracentesis was accomplished without difficulty. The patient tolerated the procedure well. Findings: Prior to the procedure, the abdomen was examined and demonstrated significant distention with ascites and a fluid wave to be present. With the patient in a supine with head elevated position, the procedure site was sterilely prepped using chloroprep and draped in the usual fashion. 10 mL of 1% lidocaine was infiltrated into the skin and subcutaneous tissues. Using a left lower quadrant approach, a small stab incision was made with a disposable blade and a 5 inch 12 gauge paracentesis needle and cannula system was inserted into the peritoneal cavity under ultrasound guidance. Aspiration demonstrated return of bloody fluid. The needle was repositioned and poor return continued. One pass was made. The trocar was then removed leaving the catheter in place. 7.5 liters of bloody fluid was withdrawn using a vacuum bottle. Fluid was sent for cell count and differential and culture and sensitivities. The incision site was closed with exofin. Tegaderm were applied. 200 mL of 25% Albumin was administered during the course of the procedure to treat the patient for underlying renal failure and for prophylactically for potential hypotension. Estimated Blood Loss: Estimated blood loss: none. Complications: No immediate complications. Impression: - Paracentesis successfully performed. - Test results pending. Recommendation: - [facility] the [facility] acute on chronic renal failure, hyponatremia, and anemia. - Repeat paracentesis PRN for therapeutic purposes. Attending Participation: I was present for the hooper portions of this procedure and either I or my colleague was immediately available for all non-hooper portions of the procedure. Procedure Code(s): --- Professional --- 30473, Abdominal paracentesis (diagnostic or therapeutic); with imaging guidance Diagnosis Code(s): --- Professional --- K70.31, Alcoholic cirrhosis of liver with ascites R18.8, Other ascites K74.60, Unspecified cirrhosis of liver K76.6, Portal hypertension N28.9, Disorder of kidney and ureter, unspecified CPT copyright 2016 [employer]. All rights reserved. The codes documented in this report are preliminary and upon rhinestone setter review may be revised to meet current compliance requirements. Sharmila Rangel PA-C 02/06/2019 3:02:55 PM This report has been signed electronically. Leroy Quinn MD Note Initiated On: 02/06/2019 2:56 PM Number of Addenda: 0 [facility] [address] [place] [address] [facility] 02/06/2019 2:56 PM CDT Sharmila Rangel PA-C GI PROCEDURE OR DERABLES [facility] [employer] * EGD (01/27/2019 3:30 PM CDT) Report Endoscopy POC Endoscopy Department Report __ _ Patient Name: Dominga Cuello Procedure Date: 01/27/2019 3:30 PM Date of : 1965 Classification: Inpatient Gender: Male Ethnicity: Not or Race: White __ _ Providers: Kaleb Hernandez MD, Nicole Cronin (Fellow) Referring MD: Procedure: Upper GI endoscopy Indications: Hematochezia Medications: Monitored Anesthesia Care Comorbidities Cirrhosis (Alcoholic) Description of Procedure: Pre-Anesthesia Assessment: - Prior to the procedure, a History and Physical was performed, and patient medications and allergies were reviewed. The patient is competent. The risks and benefits of the procedure and the sedation options and risks were discussed with the patient. All questions were answered and informed consent was obtained. Patient identification and proposed procedure were verified by the physician and the nurse in the pre-procedure area. Mental Status Examination: alert and oriented. Airway Examination: normal oropharyngeal airway and neck mobility. Respiratory Examination: clear to auscultation. CV Examination: normal. Prophylactic Antibiotics: The patient does not require prophylactic antibiotics. Prior Anticoagulants: The patient has taken no previous anticoagulant or antiplatelet agents. ASA Grade Assessment: IV - A patient with severe systemic disease that is a constant threat to life. After reviewing the risks and benefits, the patient was deemed in satisfactory condition to undergo the procedure. The anesthesia plan was to use monitored anesthesia care (MAC). Immediately prior to administration of medications, the patient was re-assessed for adequacy to receive sedatives. The heart rate, respiratory rate, oxygen saturations, blood pressure, adequacy of pulmonary ventilation, and response to care were monitored throughout the procedure. The physical status of the patient was re-assessed after the procedure. After obtaining informed consent, the endoscope was passed under direct vision. Throughout the procedure, the patient's blood pressure, pulse, and oxygen saturations were monitored continuously. The GIF-H190 was introduced through the mouth, and advanced to the second part of duodenum. The upper GI endoscopy was accomplished without difficulty. The patient tolerated the procedure well. Findings: Esophagogastric landmarks were identified: the Z-line was found at 41 cm, the gastroesophageal junction was found at 41 cm and the site of hiatal narrowing was found at 41 cm from the incisors. Three columns of non-bleeding large (> 5 mm) varices were found in the distal esophagus, 41 cm from the incisors. Stigmata of recent bleeding were evident and no red frandy signs were present. Pigmented spot seen atop of varices. Three bands were successfully placed with incomplete eradication of varices. There was no bleeding during, and at the end, of the procedure. Estimated blood loss was minimal. There is no endoscopic evidence of varices in the gastric fundus. Mild portal hypertensive gastropathy was found in the gastric fundus. Diffuse nodular mucosa was found in the duodenal bulb. Estimated Blood Loss: Estimated blood loss was minimal. Complications: No immediate complications. Impression: - Esophagogastric landmarks identified. - Recently bleeding large (> 5 mm) esophageal varices. Incompletely eradicated. Banded. Suspected source of gastrointestinal hemorrhage. - Portal hypertensive gastropathy. - Nodular mucosa in the duodenal bulb. - No specimens collected. Recommendation: - Return patient to [facility] for [facility] care. - Repeat upper endoscopy in 4 weeks to evaluate the response to therapy. - Perform a flexible sigmoidoscopy today. - Clear liquid diet today. - Continue present medications. Attending Participation: I was present and participated during the entire procedure, including non-hooper portions. Procedure Code(s): --- Professional --- 97673, Esophagogastroduode noscopy, flexible, transoral; with band ligation of esophageal/gastric varices Diagnosis Code(s): --- Professional --- I85.01, Esophageal varices with bleeding K76.6, Portal hypertension K31.89, Other diseases of stomach and duodenum K92.1, Melena (includes Hematochezia) K70.30, Alcoholic cirrhosis of liver without ascites CPT copyright 2016 [employer]. All rights reserved. The codes documented in this report are preliminary and upon rhinestone setter review may be revised to meet current compliance requirements. Kaleb Hernandez MD 01/27/2019 5:57:59 PM This report has been signed electronically. Note Initiated On: 01/27/2019 3:30 PM Number of Addenda: 0 [facility] [address] [place] [address] [facility] 01/27/2019 3:30 PM CDT Nicole Cronin MD GI PROCEDUR E ORDERABLES [facility] * ENDOSCOPY, PROCTOSIGMOID (01/27/2019 3:27 PM CDT) Report Endoscopy POC Endoscopy Department Report _ Patient Name: Dominga Cuello Procedure Date: 01/27/2019 3:27 PM Date of : 1965 Classification: Inpatient Gender: Male Ethnicity: Not or Race: White _ Providers: Kaleb Hernandez MD, Nicole Cronin (Fellow) Referring MD: Procedure: Flexible Sigmoidoscopy Indications: Hematochezia Medications: Monitored Anesthesia Care Comorbidities Cirrhosis (Alcoholic) Description of Procedure: After obtaining informed consent, the endoscope was passed under direct vision. Throughout the procedure, the patient's blood pressure, pulse, and oxygen saturations were monitored continuously. The GIF-[id number] was introduced through the anus and advanced to the left transverse colon. The flexible sigmoidoscopy was accomplished without difficulty. The patient tolerated the procedure well. The quality of the bowel preparation was excellent. Findings: Hemorrhoids were found on perianal exam. An area of moderately congested mucosa was found in the rectum, in the sigmoid colon, in the descending colon and in the transverse colon. Estimated blood loss: none. Non-bleeding external hemorrhoids were found during retroflexion. The hemorrhoids were large. Estimated Blood Loss: Estimated blood loss: none. Complications: No immediate complications. Impression: - Hemorrhoids found on perianal exam. - Congested mucosa in the rectum, in the sigmoid colon, in the descending colon and in the transverse colon. - Non-bleeding external hemorrhoids. - No specimens collected. Recommendation: - [facility] patient [facility] care. - Clear liquid diet today. - Return to GI clinic as previously scheduled. Attending Participation: I was present and participated during the entire procedure, including non-hooper portions. Procedure Code(s): --- Professional --- 29419, Sigmoidoscopy, flexible; diagnostic, including collection of specimen(s) by brushing or washing, when performed (separate procedure) Diagnosis Code(s): --- Professional --- K64.4, Residual hemorrhoidal skin tags K62.89, Other specified diseases of anus and rectum K63.89, Other specified diseases of intestine K92.1, Melena (includes Hematochezia) K70.30, Alcoholic cirrhosis of liver without ascites CPT copyright 2016 [employer]. All rights reserved. The codes documented in this report are preliminary and upon rhinestone setter review may be revised to meet current compliance requirements. _ Kaleb Hernandez MD 01/27/2019 5:56:44 PM This report has been signed electronically. Note Initiated On: 01/27/2019 3:27 PM Number of Addenda: 0 [facility] [address] [place] [address] [facility] 01/27/2019 3:27 PM CDT Nicole Cronin MD GI PROCEDUR E ORDERABLES [facility] * TRANSFUSE PLATELET PHERESIS UNIT(S) (01/26/2019 4:58 AM CDT) Kain Evans MD NURSING - BLOOD PROD TRANSFUSION * TRANSFUSE PLATELET PHERESIS UNIT(S) (01/25/2019 11:10 PM CDT) Kain Evans MD NURSING - BLOOD PROD TRANSFUSION * (ABNORMAL) KAPPA/LAMBDA LITE CHAIN FREE URINE W RATIO (01/25/2019 6:04 AM CDT) Free Raoul Light Chains Urine 294.00(H) 1.35 - 24.19 mg/L 01/28/2019 5:06 AM CDT [facility] ([facility]) Comment:Results verified b y repeat testing Free Lambda Light Chains Urine 98.50(H) 0.24 - 6.66 mg/L 01/28/2019 5:06 AM CDT [facility] ([facility]) Raoul/Lambda Ratio Urine 2.98 2.04 - 10.37 01/28/2019 5:06 AM CDT [facility] ([facility]) Urine URINE SPECIMEN OBTAINED BY CLEAN CATCH PROCEDURE / Unknown Collection / Unknown 01/25/2019 6:04 AM CDT 01/25/2019 6:15 AM CDT Narrative [facility] ([facility]) - 01/28/2019 5:06 AM CDT Performed at: [address] [id number] Clerk: Floyd Lipscomb MD, Phone: [phone] Rebeca Kan MD LAB - URINE CHEMISTR Y ORDERABLES [facility] ([facility]) [address] [place] [address] * PROTEIN ELECTROPHORESIS URINE RANDOM (01/25/2019 6:04 AM CDT) Interpretation Urine PE See Comment Normal Pattern 01/28/2019 9:05 PM CDT [facility] Comment: Urine protein electrophoresis shows albumin and transferrin bands accompanied by alpha and beta globulins and polyclonal immunoglobulins. No monoclonal immunoglobulins detected by urine protein electrophoresis. Kaleb Brumfield MD, PGY-2 Protein Urine 558 Not Established mg/dL 01/28/2019 9:05 PM CDT [facility] Comment: Result obtained by dilution. Urine URINE SPECIMEN OBTAINED BY CLEAN CATCH PROCEDURE / Unknown Collection / Unknown 01/25/2019 6:04 AM CDT 01/25/2019 6:14 AM CDT Rebeca Kan MD LAB - URINE CHEMISTR Y ORDERABLES Performing Organization Address City/[facility]/ZIP Co de Phone Number [address] [phone] * TRANSFUSE PLATELET PHERESIS UNIT(S) (01/25/2019 5:00 AM CDT) Kain Evans MD NURSING - BLOOD PROD TRANSFUSION * HIV-1 HIV-2 ANTIGEN/ANTIBODY (01/25/2019 3:54 AM CDT) HIV Antigen/Antibod y 1 & 2 Non-reacti ve Non-react jaden 01/25/2019 4:45 AM CDT [facility] Comment: Neither HIV-1 p24 Antigen nor HIV-1/HIV-2 Antibodies are detected. Blood BLOOD SPECIMEN / Unknown Venipuncture / Unknown 01/25/2019 3:54 AM CDT 01/25/2019 3:58 AM CDT Rebeca Kan MD LAB - HEMATOLOGY ORD ERABLES Performing Organization Address [facility]/ZIP Co de Phone Number [address] [phone] * (ABNORMAL) LIAT STAINING PATTERNS REFLEXED (01/25/2019 3:54 AM CDT) Homogeneous Pattern 1:160(H) 01/27/2019 3:08 PM CDT [facility] ([facility]) Note Comment 01/27/2019 3:08 PM CDT [facility] ([facility]) Comment: A positive VELIA result may occur in healthy individuals (low titer) or be associated with a variety of diseases. See interpretation chart which is not all inclusive: Pattern Antigen Detected Suggested Disease Association Homogeneous DNA(ds,ss), SLE - High titers Nucleosomes, Histones Drug-induced SLE Speckled Sm, [employer], SCL-70, SLE,MCTD,PSS (diffuse form), SS-A/SS-B Sjogrens Nucleolar SCL-70, PM-1/SCL High titers Scleroderma, PM/DM Centromere Centromere PSS (limited form) w/Crest syndrome variable Nuclear Dot [id number] Primary Biliary Cirrhosis Nuclear GP210, Primary Biliary Cirrhosis Membrane emil A,B,C Blood BLOOD SPECIMEN / Unknown Venipuncture / Unknown 01/25/2019 3:54 AM CDT 01/25/2019 3:58 AM CDT Narrative [facility] ([facility]) - 01/27/2019 3:08 PM CDT Performed at: [address] [place], [place] [id number] Deputy Court Clerk: Gilberto Coburn PhD, Phone: [phone] Rebeca Kan MD LAB - PATHOLOGY/CYTO LOGY ORDERABLES [facility] ([facility]) [address] [place] [address], [facility] * (ABNORMAL) KAPPA/LAMBDA LITE CHAIN FREE PANEL (01/25/2019 3:54 AM CDT) Free Raoul Light Chains 164.1(H) 3.3 - 19.4 mg/L 01/27/2019 2:08 PM CDT [facility] ([facility]) Free Lambda Light Chains 130.4(H) 5.7 - 26.3 mg/L 01/27/2019 2:08 PM CDT [facility] ([facility]) Raoul/Lambda Ratio 1.26 0.26 - 1.65 01/27/2019 2:08 PM CDT [facility] ([facility]) Blood BLOOD SPECIMEN / Unknown Venipuncture / Unknown 01/25/2019 3:54 AM CDT 01/25/2019 3:58 AM CDT Narrative [facility] ([facility]) - 01/27/2019 2:08 PM CDT Performed at: [address] [place] [id number] Clerk: Gilberto Coburn PhD, Phone: [phone] Rebeca Kan MD LAB - CHEMISTRY FREDO CHAVES [facility] ([facility]) [address] [place] [address] * (ABNORMAL) PROTEIN ELECTROPHORESIS BLOOD (01/25/2019 3:54 AM CDT) Interpretation Serum PE Normal Pattern Normal Pattern 01/30/2019 8:42 PM CDT [facility] Comment: Serum capillary electrophoresis shows characteristic bands corresponding to albumin, alpha and beta globulins and polyclonal immunoglobulins. No monoclonal immunoglobulins detected. Non-secretory myeloma (NSM) and light chain only myeloma cannot be excluded based on this result. Recommend serum free light chain measurements for complete evaluation of plasma cell disorders. Kaleb Brumfield MD, PGY-2 *The electrophoresis pattern and the interpretation have been reviewed and verified by the teaching physician. Protein Total 4.8(L) 6.0 - 8.3 g/dL 01/30/2019 8:42 PM CDT [facility] Albumin 2.8(L) 3.3 - 5.6 g/dL 01/30/2019 8:42 PM CDT [facility] Alpha-1 Globulins 0.3 0.2 - 0.4 g/dL 01/30/2019 8:42 PM T [facility] Alpha-2 Globulins 0.4(L) 0.5 - 1.0 g/dL 01/30/2019 8:42 PM T [facility] Beta Globulins 0.6 0.6 - 1.1 g/dL 01/30/2019 8:42 PM T [facility] Gamma Globulins 0.8 0.6 - 1.6 g/dL 01/30/2019 8:42 PM T [facility] Blood BLOOD SPECIMEN / Unknown Venipuncture / Unknown 01/25/2019 3:54 AM CDT 01/25/2019 3:58 AM CDT Rebeca Kan MD LAB - CHEMISTRY FREDO CHAVES [facility] [address] [place] [address] * TRANSFUSE PLATELET PHERESIS UNIT(S) (01/24/2019 11:21 PM CDT) Rebeca Kan MD NURSING - BLOOD PROD TRANSFUSION * ECHO COMPLETE (01/24/2019 12:36 PM CDT) Anatomical Region Laterality Modality Echo 01/24/2019 11:5 0 AM CDT Narrative Procedure Note Makenzie Maradiaga MD - 01/24/2019 Rebeca Kan MD ECHOCARDIOGRAPHY RAD IANT * US ABDOMEN LTD W COMP DOPPLER (01/24/2019 10:03 AM CDT) Anatomical Region Laterality Modality Ultrasound 01/24/2019 10:0 0 AM CDT Impressions 01/24/2019 11:10 AM CDT IMPRESSION: 1. Hepatic cirrhosis with sequela of portal hypertension including large volume ascites and marked splenomegaly. No discrete hepatic lesion or intrahepatic biliary ductal dilatation. Patent hepatic vasculature. 2. Mildly thickened gallbladder wall likely relates to liver disease. No evidence of cholelithiasis or cholecystitis. Dictated by Norman Saul MD (physician president). I, Dr. DEAN LARES M.D. have personally reviewed and interpreted this examination/study. This report was electronically signed by DEAN LARES M.D. on 01/24/2019 11:10 AM . Narrative 01/24/2019 11:10 AM CDT EXAMINATION: 1. Limited right upper quadrant abdominal sonogram 2. Color and spectral Doppler evaluation of the hepatic vasculature HISTORY: cirrhosis decompensation. eval for liver lesions and hepatic vasculature patency COMPARISON: Comparison is made with CT Abdomen Pelvis without Contrast dated 01/22/2019. FINDINGS: Abdomen: The liver has a coarse echotexture and nodular surface, consistent with cirrhosis. No discrete hepatic mass or intrahepatic biliary dilatation is seen. No gallstones or pericholecystic fluid is seen. The gallbladder wall is normal mildly thickened, measuring 4 mm. Sonographic Bro's sign is negative. The common bile duct is nondilated, measuring 5 mm. The right kidney measures 10.2 cm. Limited views of the right kidney reveal no evidence of nephrolithiasis or hydronephrosis. The spleen is markedly enlarged measuring 17.4 cm in length. The visible pancreas is normal in echogenicity. Large volume ascites is present. Liver Doppler: Color and spectral Doppler evaluation demonstrates patency of the hepatic veins with appropriate flow direction and multiphasic waveforms. The main, left, and right portal veins appear patent with normal hepatopetal flow. The main portal vein demonstrates a normal phasic waveform and velocity measures 21.4 cm/s. The proper hepatic artery is patent and demonstrates a normal arterial waveform with brisk systolic upstroke and antegrade flow. Resistive index in the proper hepatic artery measures 0. 79. Procedure Note Dean Lares MD - 01/24/2019 EXAMINATION: 1. Limited right upper quadrant abdominal sonogram 2. Color and spectral Doppler evaluation of the hepatic vasculature HISTORY: cirrhosis decompensation. eval for liver lesions and hepatic vasculature patency COMPARISON: Comparison is made with CT Abdomen Pelvis without Contrast dated 01/22/2019. FINDINGS: Abdomen: The liver has a coarse echotexture and nodular surface, consistent with cirrhosis. No discrete hepatic mass or intrahepatic biliary dilatationis seen. No gallstones or pericholecystic fluid is seen. The gallbladder wall is normal mildly thickened, measuring 4 mm. Sonographic Bro's sign is negative. The common bile duct is nondilated, measuring 5 mm. The right kidney measures 10.2 cm. Limited views of the right kidney reveal no evidence of nephrolithiasis or hydronephrosis. The spleen is markedly enlarged measuring 17.4 cm in length. The visible pancreas is normal in echogenicity. Large volume ascites is present. Liver Doppler: Color and spectral Doppler evaluation demonstrates patency of thehepatic veins with appropriate flow direction and multiphasic waveforms. The main, left, and right portal veins appear patent with normal hepatopetal flow. The main portal vein demonstrates a normal phasic waveform and velocity measures 21.4 cm/s. The proper hepatic artery is patent and demonstrates a normal arterial waveform with brisk systolic upstroke and antegrade flow. Resistiveindex in the proper hepatic artery measures 0. 79. IMPRESSION: 1. Hepatic cirrhosis with sequela of portal hypertension including large volume ascites and marked splenomegaly. No discrete hepatic lesion or intrahepatic biliary ductal dilatation. Patent hepatic vasculature. 2. Mildly thickened gallbladder wall likely relates to liver disease. No evidence of cholelithiasis or cholecystitis. Dictated by Norman Saul MD (physician president). I, Dr. DEAN LARES M.D. have personally reviewed and interpreted this examination/study. This report was electronically signed by DEAN LARES M.D. on01/24/2019 11:10 AM . Leilani Noriega MD US ORDERABLES * CYTOLOGY NON-LOG BUYER PANEL (STL) (01/24/2019 6:31 AM CDT) Case Report Medical Cytology Report Case: [id number] Authorizing Provider: Leilani Noriega MD Collected: 01/24/2019 06:31 AM Ordering Location: [address] Received: 01/24/2019 06:31 AM Pathologist: Denver Lopez MD Specimen: Ascitic Fluid 01/28/2019 11:39 AM CDT [facility] Specimen Adequacy Adequate cellularity for evaluation. 01/28/2019 11:39 AM CDT [facility] Final Diagnosis Peritoneal fluid, cytology: - Negative for malignancy - Benign, reactive mesothelial cells, lymphocytes, and histiocytes 01/28/2019 11:39 AM CDT [facility] Clinical History Decompensated hepatic cirrhosis. 01/28/2019 11:39 AM CDT [facility] Gross Description 1 pap slide and [facility]. 01/28/2019 11:39 AM CDT [facility] Microscopic Description Performed. 01/28/2019 11:39 AM CDT [facility] Disclaimer The performance characteristics of all immunohistochemical and indirect immunofluorescence stains (if any) cited in this report were determined by the Histopathology Laboratory of [facility]. Some of these tests rely on the use of analyte-specific reagents and are subject to specific labeling requirements by the US Food and Drug Administration. Such tests were developed by the Histology Laboratory of [facility] and have not been cleared or approved by the FDA. The FDA has determined that such clearance and approval is not necessary. These tests are used for clinical purposes and should not be regarded as investigational or for research. This laboratory is certified under the Clinical Laboratory Improvement Amendments (CLIA) as qualified to perform high complexity clinical laboratory testing. This case has been personally reviewed and interpreted by the attending (teaching) pathologist. 01/28/2019 11:39 AM CDT [facility] PATH[facility] Embedded Images 01/28/2019 11:39 AM CDT [facility] PATH[facility] Pathology/Cytolo gy ASCITIC FLUID SPECIMEN / Unknown Collection / Unknown 01/24/2019 6:31 AM CDT 01/24/2019 6:31 AM CDT Leilani Noriega MD LAB - PATHOLOGY/CYTO LOGY ORDERABLES Performing Organization Address [facility] Co de Phone Number [facility] PATH[facility] [address] [phone] * PROTEIN BODY FLUID ([facility] ONLY) (01/24/2019 6:30 AM CDT) Protein Fluid 1.0 Not Established For Fluids g/dL 01/24/2019 7:00 AM CDT [facility] Comment: The reference range and other method performance specifications have not been established for this fluid. The test result must be integrated into the clinical context for interpretation. Fluid PERITONEAL FLUID / Unknown Collection / Unknown 01/24/2019 6:30 AM CDT 01/24/2019 6:37 AM CDT Leilani Noriega MD LAB - BODY FLUID ORD ERABLES Performing Organization Address [facility] Co de Phone Number [facility] [address] [place] [address], [facility] [phone] * ALBUMIN BODY FLUID ([facility] ONLY) (01/24/2019 6:30 AM CDT) Albumin Fluid 0.4 Not Established For Fluids g/dL 01/24/2019 7:00 AM CDT [facility] Comment: The reference range and other method performance specifications have not been established for this fluid. The test result must be integrated into the clinical context for interpretation. Fluid PERITONEAL FLUID / Unknown Collection / Unknown 01/24/2019 6:30 AM CDT 01/24/2019 6:37 AM CDT Leilani Noriega MD LAB - BODY FLUID ORD ERABLES Performing Organization Address City/[facility]/ZIP Co de Phone Number [address] [phone] * LD BODY FLUID ([facility] ONLY) (01/24/2019 6:30 AM CDT) LD Fluid 60 Not Established For Fluids Units/L 01/24/2019 7:00 AM CDT [facility] Comment: The reference range and other method performance specifications have not been established for this fluid. The test result must be integrated into the clinical context for interpretation. Fluid PERITONEAL FLUID / Unknown Collection / Unknown 01/24/2019 6:30 AM CDT 01/24/2019 6:37 AM CDT Leilani Noriega MD LAB - BODY FLUID ORD ERABLES Performing Organization Address City/[facility]/ZIP Co de Phone Number [address] [phone] * (ABNORMAL) B-TYPE NATRIURETIC PEPTIDE (01/24/2019 3:45 AM CDT) BNP 309(H) See Comment pg/mL 01/24/2019 4:21 AM CDT [facility] Comment: * Disclaimer: BNP results may be falsely high by 20% due * * to shift observed secondary to new reagent lot. Lab * * working with home extension agent to resolve. * * * * Please contact [facility] Lab Lead Accountant with any questions * A decision threshold of 100 pg/mL has been demonstrated to provide the maximal combination of sensitivity, specificity and predictive value for the diagnosis of congestive heart failure (CHF). Virtually all patients with no evidence of CHF have BNP values less than 100 pg/mL. A BNP value greater than 100 pg/mL is consistent with the diagnosis of CHF in the appropriate clinical setting. In a study of 693 patients (male and female) with diagnosed CHF, the following values were determined based on the NYHA functional classification system: NYHA Functional Class Mean Valule (pg/mL) % >100 pg/mL I 320 58.1 II 432 73.0 III 656 79.0 IV 1635 98.3 Blood BLOOD SPECIMEN / Unknown Venipuncture / Unknown 01/24/2019 3:45 AM CDT 01/24/2019 3:51 AM CDT Leilani Noriega MD LAB - CHEMISTRY FREDO CHAVES [facility] Organization Address City/State/ZIP Co de Phone Number [address] [phone] Care Teams Adobe Layer Relationship Specialty Start Date End Date Efren Ramirez DO [address] [place] [address] PCP - General Internal Medicine 06/12/24
--- OUTSIDE RECORDS SUMMARY | 2024-08-12 09:11 | XMS_ITS | Clinical Summary ---
Author Organization [facility] Address [facility] [place] [address] Care Team Providers Care Flight Operations Dispatch Clerk Name Role Phone Dm Pena MD Primary Care Provider [phone] Allergies No known active allergies Medications melatonin 3 MG tablet Take 5 mg by mouth nightly as needed. Active pantoprazole EC 40 MG tablet Take 40 mg by mouth daily. 01/30/2019 Active nadolol 20 MG tablet Take 20 mg by mouth daily. 03/09/2020 Active sevelamer carbonate 800 MG tablet TK 2 TS PO WITH MEALS TID AND 1 T WITH A SNACK QD 03/15/2020 Active levETIRAcetam (KEPPRA) 750 MG tabletIndicatio ns:Seizure disorder ([facility]),Closed head injury, sequela Take 1 tablet (750 mg total) by mouth 2 (two) times daily. 60 tablet 3 03/16/2023 Active B Cokwcsl-U-Iyiys Acid (TRIPHROCAPS) 1 MG Cap Take 1 capsule by mouth daily. Active Active Problems Problem Noted Date Diagnosed Date Acute upper respiratory infection 07/05/2023 Non-recurrent unilateral ing uinal hernia without obstruction or gangrene 04/02/2023 Seizure disorder ([facility] HHS/HCC) 08/29/2022 Closed head injury, sequela 08/29/2022 Dyspepsia 08/29/2022 Senile cataract of right eye , unspecified age-related cataract type 11/02/2021 Renal hypertension 09/15/2021 Insomnia, unspecified type 03/02/2021 Erectile dysfunction, unspecified erectile dysfu nction type 04/26/2020 Acute pain of right knee 05/03/2019 Chronic renal failure 03/05/2019 Cirrhosis of liver with ascites ([facility] ) 03/05/2019 Pancytopenia ([facility]) 03/05/2019 Anemia in end-stage renal disease ([facility]) 02/26/2019 Hyperphosphatemia 02/26/2019 Metabolic acidosis 02/26/2019 Hyponatremia 02/06/2019 Portal hypertension ([facility]) 02/06/2019 Dyspnea 01/24/2019 Decompensated hepatic cirrhosis ([facility] ) 01/22/2019 Alcoholism ([facility]) 02/19/2015 Ascites 10/09/2014 Type 2 diabetes mellitus wit h chronic kidney disease, without long-term current use of insulin ([facility]) 09/14/2014 Overview (04/21/2019): Description: 04/2012 Gout 04/06/2014 Elevated liver enzymes 09/10/2013 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 Nephrotic syndrome 08/14/2013 Nephrolithiasis 08/14/2013 Obstructive sleep apnea 08/14/2013 Proteinuria 08/14/2013 Essential hypertension 08/02/2013 Overview (04/21/2019): Description: prior to 03/2003 Resolved Problems Problem Noted Date Diagnosed Date Resolved Date Acute upper respiratory infection 03/02/2021 01/25/2023 Peritonitis ([facility]) 04/18/2019 03/28/2022 SHIRA (acute kidney injury) 01/24/2019 Type 2 diabetes mellitus ([facility]) 08/14/2013 01/25/2023 Routine general medical exam ination at a health care facility 05/23/2013 01/29/2023 Immunizations Name Administration Dates Next Due Flublok (Quadrivalent) 03/28/2022 Hepatitis B (Generic: Adult) 11/22/2019 Influenza (Generic) 05/31/2021,,04/27/2017,07/13/2015,08/2014 Pneumococcal (Pneumovax 23) 11/02/2021 Pneumococcal (Prevnar 20) 11/13/2023 Shingrix 11/13/2023 Tdap (Generic) 12/24/2017 Family History Medical History Relation Comments Colon Cancer Father Diabetes Father cad Paternal Grandfather Relation Status Comments Father Paternal Grandfather Social History Tobacco Use Types Packs/Day Years Used Date Smoking Tobacco: Never Smokeless Tobacco: Current Chew Alcohol Use Standard Drinks/Week Comments Not Asked 0 (1 standard drink = 0.6 oz pure alcohol) in recovery-since 2020 Sex and Gender Information Value Date Recorded Sex Assigned at Not on file Legal Sex Male 10:25 PM CDT Gender Identity Not on file Sexual Orientation Not on file 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 Not on file Not on file Not on file Last Filed Vital Signs Vital Sign Reading Time Taken Comments Blood Pressure 124/62 07/05/2023 1:07 PM [employer] Pulse 57 12/05/2021 6:35 PM CDT Temperature 36.8 C (98.3 F) 08/29/2022 2:49 [address] [employer] Respiratory Rate 17 12/05/2021 6:35 PM CDT Oxygen Saturation 96% 12/05/2021 6:35 PM CDT Inhaled Oxygen Concentration - - Weight 81.2 kg (179 lb) 07/05/2023 1:07 PM [employer] Height 175.3 cm (5' 9 ) 01/25/2023 1:06 PM CDT Body Mass Index 26.43 01/25/2023 1:06 PM CDT Plan of Treatment Health Maintenance Due Date Last Done Comments PHQ-2 ([facility] [place]) 1977 Diabetes: Retinopathy Eye Exam 12/07/1983 Hepatitis B Vaccines (2 of 3 - 19+ 3-dose series) 12/20/2019 11/22/2019 Zoster Vaccines (2 of 2) 01/08/2024 11/13/2023 Annual Physical 01/26/2024 01/25/2023, 03/0 08/2021, 04/26/2020, Additional history exists COVID-19 Vaccine ( season) 2024 05/02/2022, 06/13/2021, 09/16/2020 Influenza Adult (#1) 2024 03/28/2022, 05/31/2021, 04/06/2020, Additional history exists Hemoglobin A1C 06/25/2024 12/25/2023, 01/2023, 11/02/2021, Additional history exists PHQ-2 ([facility] [place]) 07/02/2024 Lipid Panel 12/24/2024 12/25/2023, 01/2023, 09/09/2013 DTaP, Tdap and Td Vaccines (2 - Td or Tdap) 12/25/2027 12/24/2017 Colorectal Cancer Screening Colonoscopy (10 Years) 2031 12/05/2021, 12/05/2021, 03/02/2005 Pneumococcal Vaccine: Pediatrics (0 to 5 Years) and At-Risk Patients (6 to 64 Years) Completed 11/13/2023, 11/02/2021 Hepatitis C Completed 12/25/2023, 01/2023, 12/07/2022, Additional history exists Meningococcal B Vaccine Aged Out No l onger eligible based on patient's age to complete this topic Meningococcal Vaccine Aged Out No antoinette mahesh eligible based on patient's age to complete this topic RSV Immunizations Under 20 Months Aged Out No longer eligible based on patient's age to complete this topic Medical Devices Implanted Type Area Insurance Claims Processor Device Identifier Shelf Expiration Date Model / Serial / Lot Port Procedures Procedure Name Priority Date/Time Associated Diagnosis Comments COLONOSCOPY Routine 12/05/2021 5:24 PM CDT HEMOGLOBIN, GLYCOSYLATED Routine 11/02/2021 10:05 AM CDT Type 2 diabetes mellitus without complication, without long-term current use of insulin ([facility]) LIPID PANEL Routine 09/09/2013 9:23 AM CDT from Last 3 Months or Most Recently Relevant to Health Maintenance Results * Colonoscopy (12/05/2021 5:24 PM CDT) Narrative Sin Rose MD - 12/05/2021 5:24 PM CDT Sin Rose MD 12/05/2021 6:19 PM SIN ROSE MD, FACG, FACP COLONOSCOPY 12/05/2021 This is a 55-year-old male with history of T2DM, HTN, ESRD/HD, Cirrhosis, CHELSI, Seizure disorder, GERD, foot and knee surgery and right IHR who now presents for colonoscopy for family history of colon cancer in his father. GI review of systems is negative. No endocarditis risk factors. No Active Allergies. Medications: see list. VITALS: Stable. LUNGS: Clear. HEART: RRR. S1/S2 normal. ABDOMEN: NABS/NT. The procedure of colonoscopy, its indications, alternatives of barium studies and risks including perforation, bleeding, infection, reaction to medication as well as the possible need for blood or surgery were discussed with the patient prior to the procedure. The patient voices understanding, agrees to proceed and provides informed consent. INDICATION: Screening for colon cancer/Family history of colon cancer. POST-OP: One polyp removed. SEDATION: ASA 3, MP 1. Versed 4 mg, Fentanyl 100 mcg IV given. PREP: Good. With the patient in the left lateral decubitus position, the Olympus [id number] colonoscope was introduced into the rectum and advanced easily to the Terminal Ileum. Careful inspection of the mucosa was made upon insertion and withdrawal of the endoscope. FINDINGS: Terminal ileum: distal 5 cm normal. Ascending, [...] Dr. Pena as needed. Sin Rose M.D. Cc: Dr. Pena Sin Rose MD GI PROCEDURE ORDERABLES Fin al Result * HEMOGLOBIN, GLYCOSYLATED (11/02/2021 10:05 AM CDT) HGB A1C 4.8 4.2 - 6.5 % [facility] 11/02/2021 10:0 5 AM CDT Dm Pena MD LABORATORY Final Resul t [facility] [address] [address], * (ABNORMAL) LIPID PANEL (09/09/2013 9:23 AM CDT) CHOLESTEROL 249(H) 0 - 199 mg/dL [facility] TO EPIC CONVERSION TRIGLYCERIDES 306(H) 0 - 149 mg/dL [facility] TO EPIC CONVERSION HDL 37(L) 40 - 60 mg/dL [facility] TO EPIC CONVERSION LDL (CALCULATED) 151(H) 0 - 130 [facility] TO EPIC CONVERSION RISK 6.7 [facility] T O EPIC CONVERSION 09/09/2013 9:23 AM CDT 09/09/2013 9:23 AM CDT Narrative [facility] TO EPIC CONVERSION - 09/09/2013 9:23 AM CDT Order Comment: Result Communication: Call patient with results us Generic Conversion Md [facility] Final R esult [facility] TO EPIC CONVERSION from Last 3 Months or Most Recently Relevant to Health Maintenance Insurance MEDICARE MEDICARE Care Teams Flight Operations Dispatch Clerk Relationship Specialty Start Date End Date Dm Pena MD [address] [phone] PCP - General FAMILY PRACTICE 10/23/18
--- OUTSIDE RECORDS SUMMARY | 2024-08-12 09:11 | XMS_ITS | Encounter Summary ---
Author Organization [facility] Address [facility] [place] [address] Care Team Providers Care Warehouse Trainer Name Role Phone Lonnie Schaefer DO Primary Care Provider Dm Pena MD Primary Care Provider [phone] Encounter Details Date Type Department Care Team (Late st Contact Info) Description 09/15/2017 Abstract [facility] CONVERSION [address] [place] [address] , Generic Conversion, Social History Tobacco Use Types Packs/Day Years Used Date Smoking Tobacco: Never Sex and Gender Information Value Date Recorded Sex Assigned at Not on file Legal Sex Male 10:25 PM CDT Gender Identity Not on file Sexual Orientation Not on file documented as of this encounter Plan of Treatment Not on file documented as of this encounter Visit Diagnoses Not on filedocumented in this encounter Care Teams Warehouse Trainer Relationship Specialty Start Date End Date Lonnie Schaefer DO [address] [place] [address] PCP - General 11/17/14 10/22/18 Dm Pena MD [address] [phone] PCP - General FAMILY PRACTICE 10/23/18 documented as of this encounter
--- NOTE | 2024-08-12 09:17 | ED.AMS ---
HPI - Altered Mental Status General Chief Complaint: Altered Mental Status Stated Complaint: altered mental status during dialysis Time Seen by Provider: 08/12/24 08:48 History of Present Illness HPI narrative: Patient with h/o ESRD on HD, cirrhosis, p/w AMS. His friend dropped him off at dialysis at 5 this morning and he was acting completely normally at the time, after they took 3-4 L off, they noticed that he was acting lethargic. Patient only able to say yep or nope For does state that he has been acting intermittently abnormal, at some point about a week ago also seem to have some weakness and went to outside ER where they diagnosed him with potential blood clots and started him on blood thinners Related Data Home Medications ?Medication ?Instructions ?Recorded ?Confirmed ?Last Taken ?Type sildenafil 50 mg tablet 50 mg PO PRN PRN Sexual Activity 05/06/21 03/27/24 Unknown History levetiracetam 750 mg tablet 750 mg PO Q12H 02/21/24 03/27/24 Unknown History sevelamer carbonate 800 mg tablet 800 mg PO TID 02/21/24 03/27/24 Unknown History hydralazine 10 mg tablet 25 mg PO TID 03/27/24 03/27/24 Unknown History melatonin 3 mg tablet 3 mg PO HS PRN 03/27/24 03/27/24 Unknown History Allergies Allergy/AdvReac Type Severity Reaction Status Date / Time No Known Allergies Allergy Unknown Verified 03/27/24 08:34 Review of Systems Review of Systems: ROS unobtainable: Yes unobtainable due to mental status PMFSH Past Medical History Medical History Acute respiratory failure Alcoholic liver failure Cirrhosis Cirrhosis, alcoholic Coagulopathy Encephalopathy, hepatic 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 ESRD needing dialysis Facial hematoma Pancytopenia Renal osteodystrophy Seizure Thrombocytopenia Surgical History Surgical History H/O cataract removal with insertion of prosthetic lens History of vasectomy Status post biopsy of kidney Family History Family History Father Colon cancer Dementia Social History Social History (Updated 03/27/24 @ 08:39 by Vani Anderson) Social History: Caffeine-tea Smoking status: Never smoker Alcohol intake: former Alcohol use details: none since04/11/21 Substance use: never Substance use type: does not use Do You Feel Safe in your Home?: Yes Lack of Transportation: No Lack of Food: Never True Current Housing: I Have Housing Concerned About Future Housing: No Difficulty Paying Gas/Electric Bills: No Difficulty Paying for Meds: No Currently Unemployed: No Education: Master's Degree or Higher Difficulty w/ Childcare or Family Care: No Spiritual care concerns: No Exam Narrative: EXAMINATION OF ORGAN SYSTEMS/BODY AREAS: Constitutional: Vital signs per nursing GENERAL:[No acute distress, non-toxic appearing.] HEAD: Normal with no signs of head trauma. EYES: EOMI, conjunctiva normal, PERRL; right gaze deviation ENT: Hearing grossly intact LUNGS: Nonlabored breathing. HEART: [Regular rate and rhythm] ABD: [Soft], [nontender to palpation] EXT: LUE weakness SKIN: [No rashes or lesions.] NEURO: [Alert. Slow speech; LUE weakness.] PSYCH: Normal affect Course Vital Signs Vital signs: Vital Signs Temperature 98.6 F 08/12/24 08:35 Pulse Rate 58 L 08/12/24 08:35 Respiratory Rate 14 08/12/24 08:35 Blood Pressure 158/75 H 08/12/24 08:35 Pulse Oximetry 98 08/12/24 08:35 Oxygen Delivery Room Air 08/12/24 08:35 Temperature 98.6 F 08/12/24 08:35 Pulse Rate 58 L 08/12/24 08:35 Respiratory Rate 14 08/12/24 08:35 Blood Pressure 158/75 H 08/12/24 08:35 Pulse Oximetry 100 08/12/24 08:37 Oxygen Delivery Room Air 08/12/24 08:37 MDM - Altered Mental Status MDM Narrative Medical decision making narrative: 58M p/w AMS started after HD; ESRD and cirrhosis hx. LNW 4hr ago, out of TPA window especially as pt potentially on blood thinners. Did also discuss plan with his friend. On exam NIHSS 10 with AMS, aphasia. CTA head/neck neg. Called [facility] transfer team; Dr Krzysztof DOMINGUEZ stroke accepts for dx encephalopathy; agrees on no acute intervention at this time as pt not candidate. Currently on [facility] waitlist. D/w hospitalist, neurologist for admission. D/w jesus. Lab Data 08/12/24 09:05 08/12/24 09:05 Labs: Lab Results 08/12/24 08/12/24 08/12/24 Range/Units 08:51 09:05 09:35 WBC 2.7 L (4.5-10.0) K/mm3 RBC 2.86 L (4.6-6.20) M/mm3 Hgb 9.6 L (14.0-18.0) g/dL Hct 29.6 L (42.0-52.0) % MCV 103.5 H (80-100) fl MCH 33.6 (26-34) pg MCHC 32.4 (32-36) g/dl RDW 16.3 H (11.5-14.5) % Plt Count 35 L (150-375) k/mm3 MPV 10.5 H (7.4-10.4) fl Immature Gran % (Auto) 0.4 (0-0.5) % Neut % (Auto) 63.1 (45.5-73.1) % Lymph % (Auto) 23.1 (18.3-44.2) % [place] % (Auto) 9.0 H (2.6-8.5) % Eos % (Auto) 3.7 (0-4.4) % Baso % (Auto) 0.7 (0.2-1.2) % Lymph # (Auto) 0.62 L (0.9-3.2) K/mm3 [place] # (Auto) 0.2 (0.1-0.6) K/mm3 Eos # (Auto) 0.1 (0-0.3) K/mm3 Baso # (Auto) 0.0 (0.0-0.1) K/mm3 Abs Immat Gran (auto) 0.01 (0.00-0.031) K/mm3 Absolute Neuts (auto) 1.7 (1.3-6.7) K/mm3 Absolute Nucleated RBC 0.000 (0.0-0.012) K/mm3 Nucleated RBC % 0.0 (0.0-0.2) % % Immature Plt Fraction 2.5 (0.9-11.2) % Sodium 141 (137-145) mmol/L Potassium 4.2 (3.4-5.0) mmol/L Chloride 100 (98-107) mmol/L Carbon Dioxide 28 (22-30) mmol/L Anion Gap 13 H (4-12) mmol/L BUN 36 H D (9-20) mg/dL Creatinine 5.50 H (0.7-1.3) mg/dL Estim Creat Clear Calc 14 ml/min Estimated GFR 11 L (59 - ) Glucose 110 (65-110) mg/dL POC Capillary Glucose 118 H (65-105) mg/dl Calcium 9.3 (8.4-10.2) mg/dL Total Bilirubin 1.2 (0.2-1.3) mg/dL AST 32 (17-59) U/L ALT 17 (6-50) U/L Alkaline Phosphatase 181 H (38-126) U/L Ammonia 69 H (9-30) umol/L Total Protein 7.0 (6.3-8.2) g/dL Albumin 3.7 (3.5-5.1) g/dL Ethyl Alcohol < 10 (<10) mg/dL Critical Care Time Critical Care Time Critical Care Time: Yes Total Critical Care Time: 61 Discharge Plan Discharge Clinical Impression: Encephalopathy, Acute left-sided weakness Patient Disposition: Still a Patient Condition: Serious Patient Language: Serbian Prescriptions: No Action melatonin 3 mg tablet 3 mg PO HS PRN levetiracetam 750 mg tablet 750 mg PO Q12H sevelamer carbonate 800 mg tablet 800 mg PO TID Patient Comments: Take 2-3 tabs with every meal and 1 with a snack. Rx Instructions: must administer with a meal/food hydralazine 10 mg tablet 25 mg PO TID sildenafil 50 mg tablet 50 mg PO PRN PRN (Reason: Sexual Activity) nadolol 20 mg tablet 20 mg PO DAILY Qty: 30 0RF amlodipine 5 mg tablet 5 mg PO DAILY Qty: 90 3RF furosemide 80 mg tablet 80 mg PO BID Qty: 180 3RF lactulose 20 gram/30 mL solution 20 g PO BID PRN (Reason: Constipation/liver issues) Qty: 1419 3RF Rx Instructions: I wrote that odd number because pt wants to have 3 bottles at a time. I believe a bottle is 473ml. pantoprazole 40 mg tablet,delayed release (DR/EC) See Rx Instructions .ROUTE .COMPLEX Qty: 90 3RF Dose Instruction: TAKE 1 TABLET BY MOUTH DAILY Rx Instructions: TAKE 1 TABLET BY MOUTH DAILY Follow-up/Referrals: Efren Ramirez, [Primary Care Provider] -
[2024-08-12 09:20] LABS: Basophils Percent Auto 0.7 % (0.2-1.2); Eosinophils Absolute Auto 0.1 K/mm3 (0-0.3); Eosinophils Percent Auto 3.7 % (0-4.4); Hematocrit 29.6 % (42.0-52.0); Hemoglobin 9.6 g/dL (14.0-18.0); Immature Granulocyte Absolute 0.01 K/mm3 (0.00-0.031); Immature Granulocyte Percent A 0.4 % (0-0.5); Immature Platelet Fraction Pct 2.5 % (0.9-11.2); Lymphocytes Absolute Auto 0.62 K/mm3 (0.9-3.2); Lymphocytes Percent Auto 23.1 % (18.3-44.2); Mean Corpuscular HGB Conc 32.4 g/dl (32-36); Mean Corpuscular Hemoglobin 33.6 pg (26-34); Mean Corpuscular Volume 103.5 fl (80-100); Mean Platelet Volume 10.5 fl (7.4-10.4); Monocytes Absolute Auto 0.2 K/mm3 (0.1-0.6); Neutrophils Absolute Auto 1.7 K/mm3 (1.3-6.7); Neutrophils Percent Auto 63.1 % (45.5-73.1); Platelet Count Result 35 k/mm3 (150-375); Red Blood Count 2.86 M/mm3 (4.6-6.20); Red Cell Distribution Width 16.3 % (11.5-14.5); White Blood Count 2.7 K/mm3 (4.5-10.0)
--- OUTSIDE RECORDS SUMMARY | 2024-08-12 09:30 | XMS_ITS | Clinical Summary ---
Author Organization [facility] Address [address] [place] [address] Phone Care Team Providers Care Ultrasound Applications Specialist Name Role Phone SchaeferLonnie avalos Primary Care Provider [phone] Allergies No known active allergies Medications Medication [...] night if needed Active ergocalciferol (VITAMIN D-2) 00775 units capsule Take 50,000 Units by mouth [...] Vaccine (#1) 2024 04/27/2017, 2014 Care Teams Ultrasound Applications Specialist Relationship Specialty Start Date End Date Lonnie Schaefer DO [address] [facility] [place] [address] PCP - General 02/21/19
--- OUTSIDE RECORDS SUMMARY | 2024-08-12 09:30 | XMS_ITS | Encounter Summary ---
Author Organization [facility] Address [address] [place] [address] Care Team Providers Care Employment Trainer Name Role Phone Dm Pena MD Primary Care Provider Efren Ramirez DO Primary Care Provider Encounter Details Date Type Department Care Team (Late st Contact Info) Description 03/09/2020 Telephone [facility] [address] [place] [address] Kiko Pena MD [address] [place] [address] Social History Tobacco Use Types Packs/Day Years [...] st Contact Info) Description 08/14/2024 10:45 AM TAPE RECORDER MECHANIC Office Visit [facility] - Orthopedics [address] [place] [address], [place] [address] Yaima Dobbins MD [address] [place] [address] [place] [address] documented as of this encounter Visit Diagnoses Not on filedocumented in this encounter Additional Health Concerns Infection Onset Date Last Indicated Resolved Time COVID-19 Under Investigation 09/20/2020 09/20/2020 09/20/2020 10:10 PM CDT COVID-19 Under Investigation 07/19/2021 07/19/2021 07/19/2021 1:09 PM TAPE RECORDER MECHANIC COVID-19 Confirmed 07/19/2021 07/19/2021 4:33 AM TAPE RECORDER MECHANIC COVID-19 Under Investigation 10/29/2023 10/29/2023 10/29/2023 9:28 AM CDT documented as of this encounter Care Teams Employment Trainer Relationship Specialty Start Date End Date Dm Pena MD [address] [phone] PCP - General Family Medicine 02/06/19 06/11/24 Efren Ramirez DO [address] [place] [address] PCP - General Internal Medicine 06/12/24 documented as of this encounter
--- OUTSIDE RECORDS SUMMARY | 2024-08-12 09:30 | XMS_ITS | Encounter Summary ---
Author Organization [facility] Address [address] [place] [address] Phone Care Team Providers Care Registered Medical Assistant Name Role Phone Lonnie Schaefer Primary Care Provider [phone] Encounter Details Date Type Department Care Team (Late st Contact Info) Description 04/20/2022 [facility] Nephrology and Hypertension [address] [facility], [address] [place] [address] Aleja Norris RN Social History Tobacco Use [...] refill of his Xifaxan. Please send to [facility]. documented in this encounter Plan of Treatment Not on file documented as of this encounter Visit Diagnoses Not on filedocumented in this encounter Care Teams Registered Medical Assistant Relationship Specialty Start Date End Date Lonnie Schaefer DO [address] [facility] [address] [place] [address] [place] [phone] PCP - General 02/21/19 documented as of this encounter
--- OUTSIDE RECORDS SUMMARY | 2024-08-12 09:30 | XMS_ITS | Encounter Summary ---
Author Organization [facility] Address [address] [facility] [place] [address] Care Team Providers Care Computer Network Engineer Name Role Phone Efren Ramirez DO Primary Care Provider [phone] Encounter Details Date Type Department Care Team (Late st Contact Info) Description 08/07/2024 Telephone [facility] [address] [facility] [place] [place] [phone] Yaima Dobbins MD [address] [place] [address] OF ORTHOPEDIC SURGERY [place], [place] [id number] Social History Tobacco Use Types Packs/Day Years [...] and heating? Not hard at all 06/12/2024 [facility] of Occupat ional Health - Occupational Stress [...] any time in the past 12 m [facility], were you homeless or [...] voice mail about this patient from a [email or web address]. The [employer] is asking for office visit notes. The phone number to reach them at or further clarification is [phone] ext. [phone]. Please advise. The fax number is [phone] if needed. K MAKING MACHINE OPERATOR documented in this encounter Plan of Treatment Upcoming Encounters Date Type Department Care Team (Late st Contact Info) Description 08/14/2024 10:45 AM BLOCK MAKING MACHINE OPERATOR Office Visit [facility] Orthopedics [address] [place] [address], [place] [phone] Yaima Dobbins MD [address] [place] [address] [place] [address] documented as of this encounter Goals Goal [...] on filedocumented in this encounter Care Teams Computer Network Engineer Relationship Specialty Start Date End Date Efren Ramirez DO [address] [place] [address] PCP - General Internal Medicine 06/12/24 documented as of this encounter
[2024-08-12 09:32] LABS: Alanine Aminotransferase 17 U/L (6-50); Albumin Level 3.7 g/dL (3.5-5.1); Alkaline Phosphatase 181 U/L (38-126); Anion Gap 13 mmol/L (4-12); Aspartate Amino Transferase 32 U/L (17-59); Bilirubin,Total 1.2 mg/dL (0.2-1.3); Blood Urea Nitrogen 36 mg/dL (9-20); Calcium 9.3 mg/dL (8.4-10.2); Carbon Dioxide 28 mmol/L (22-30); Chloride 100 mmol/L (98-107); Estimated CRCL calculation 14 ml/min; Estimated Glomerular Filt Rate 11; Glucose 110 mg/dL (65-110); Potassium 4.2 mmol/L (3.4-5.0); Sodium 141 mmol/L (137-145)
--- OUTSIDE RECORDS SUMMARY | 2024-08-12 09:32 | XMS_ITS | Clinical Summary ---
Author Organization [facility] Address [address] [place] [address] Phone Care Team Providers Care Biometrics Head Name Role Phone Unavailable Primary Care Provider [...]
--- OUTSIDE RECORDS SUMMARY | 2024-08-12 09:32 | XMS_ITS | Clinical Summary ---
Author Organization [facility] at the [facility] [place] Address [address] [place] [address] Care Team Providers Care Protective Services Case Worker Name Role Phone Dm Pena MD Primary Care Provider [phone] Sarah Jimenez RN Unavailable Hermelindo Avilez MD Unavailable [phone] Allergies Active Allergy Reactions Criticality Noted Date [...] Type Department Care Team Description 07/03/[address] [facility] Transplant Kidney [address] [facility] [address] Mailstop [id number] [place] [address] Salena Mcdowell 07/03/2024 Telephone [facility] Transplant Kidney [address] Mailstop [id number] [place] [address] Shahida Avila from Last 3 Months Surgical History Surgery Date Site/Laterality Comments NE VASECTOMY UNI/BI SPX W/PO STOP SEMEN EXAMS [...] How often do you attend chur or holiness services? 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
--- OUTSIDE RECORDS SUMMARY | 2024-08-12 09:32 | XMS_ITS | Referral Summary ---
Author Organization [facility] at the [facility] Address [address] [place] [address] Care Team Providers Care Data Processor Name Role Phone Dm Pena MD Primary Care Provider [phone] Sarah Jimenez RN Unavailable [phone] Hermelindo Avilez MD Unavailable [phone] Encounters Date Type Department Care Team Description 07/03/2024 Telephone [facility] Transplant Kidney [address] [facility] [address] Mailstop [id number] [place] [address] Salena Mcdowell 07/03/2024 Telephone [facility] Transplant Kidney [address] [facility] [address] Mailstop [id number] [place] [address] Shahida Avila from Last 3 Months Allergies [...] often do you attend chur ch or holiness services? 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
--- OUTSIDE RECORDS SUMMARY | 2024-08-12 09:32 | XMS_ITS | Clinical Summary ---
Author Organization [facility] TrustTeam Address [address] [place] [address] Care Team Providers Care Pick Up Worker Name Role Phone Efren Ramirez DO Primary Care Provider Source Comments [facility],non-owned Affiliates and Associated Physician Practices is amultiple site organization consisting of ambulatory clinics and hospital sitesin [place], [place], [place]. This disclosure is being madepursuant to the Care Everywhere program and may not contain all information available regarding this patient. Last updated 18.[facility] Allergies No known active allergies Medications * [...] 80 PTH Intact 546.1 (H) 12/07/22 13:03 Gjlzu-3-Offjigbpxxn 119 Rajbl-1-Dcxrkmpcdqx Phenotype M1S Ceruloplasmin 25 Osmolality Calculated 301 [...] 04/26/23 09:45 04/26/23 09:46 dsDNA Antibody 15 Fofana/ENVIRONMENTAL CHANGE ANALYST Antibodies 2 Fofana (FRANCESCA) Antibody 6 Complement [...] Impression: It is the impression of this vp digital marketing social media and crm that Jj Cuello has several positive factors for Liver/Kidney transplant candidacy including knowledge of illness, sufficient insurance coverage, stable financial situation for post transplant needs, adequate support system, and appropriate discharge plan. Pt has committed to lifelong abstinence and will maintain alcohol free household RP/Provider impression scanned to file Court docs scanned to file Provider impression charted 11/20 Plan: lithopone mill worker to provide supportive services as needed. Patient appears to be a reasonable candidate for transplant from a psychosocial perspective. Post transplant arrangement forms are needed prior to being listed. Psychiatric Consult Recommended: no Transplant Interventional Neuroradiologist: Tala Villalta LCSW Liver Transplant Education 12/07/2022 Linh Forde, waybill clerkData Transcriber ENT 11/29/22 - +chew tobacco Findings: -No [...] committee and are final. Amelia Corral MD data transcriber Transplant Surgery [facility] Consultation 01/21/24 Dr. Corral - need note Transplant Nephrology Consultation 01/29/23 I consider the patient an excellent candidate for a simultaneous Liver-Kidney Transplantation. The patient needs ECHO of heart due to a grade 2-3/6 systolic murmur all over the anterior precordium radiating to carotids and anterior Lt axillary line. Also check Anti-DS-DNA Ab, Anti-Fofana Ab, Anti-ENVIRONMENTAL CHANGE ANALYST Ab, C3, C4, CH50, Lupus anticoagulants titer. [...] Telephone [facility] - Pulmonology [address] [facility] [address] [facility], [place] [address] Yaima Dobbins MD 08/05/2024 8:40 PM COMMUNITY SUPPORT SPECIALIST - 08/05/2024 8:52 PM COMMUNITY SUPPORT SPECIALIST Emergency [facility] EMERGENCY DEPARTMENT [address] [place] [address] Discharge Disposition: Left Against Medical Advice/Discontinued Care 08/05/2024 10:00 AM COMMUNITY SUPPORT SPECIALIST Clinical Support [facility] TXP VAZQUEZ CSM 3L [address] [facility] [place] [address] Unknown, Provider S/P hernia repair 08/05/2024 Travel 07/24/2024 7:05 AM COMMUNITY SUPPORT SPECIALIST - 07/24/2024 11:59 PM COMMUNITY SUPPORT SPECIALIST Hospital Encounter [facility] LAB OP DRAW STATION [address] [place] [address] Discharge Disposition: Home or Self Care 07/24/2024 Travel 07/22/2024 Telephone [facility] - [address] [place] [address] Jackson Melvin MD Physical Therapy 07/11/2024 7:29 AM COMMUNITY SUPPORT SPECIALIST Anesthesia Event [facility] LANETTE OP [address] [place] [address] Pawan Lynn DO Keeven, hSi Ceja, INTERVENTIONAL NEURORADIOLOGIST-GUM MACHINE OPERATOR 07/11/2024 7:05 AM COMMUNITY SUPPORT SPECIALIST - 07/11/2024 9:28 AM COMMUNITY SUPPORT SPECIALIST Surgery [facility] LANETTE OP [address] [place] [address] Theron Medellin MD Open right inguinal hernia repair with mesh 07/11/2024 5:06 AM COMMUNITY SUPPORT SPECIALIST - 07/11/2024 12:42 PM COMMUNITY SUPPORT SPECIALIST Hospital Encounter [facility] LANETTE OP [address] [place] [address] Theron Medellin MD Surgery General Discharge Disposition: Home or Self Care 07/11/2024 Travel 07/08/2024 12:50 PM COMMUNITY SUPPORT SPECIALIST - 07/08/2024 11:59 PM COMMUNITY SUPPORT SPECIALIST Hospital Encounter [facility] LAB OP DRAW STATION [address] [place] [address] Unknown, Provider Discharge Disposition: Home or Self Care 07/08/2024 12:12 PM COMMUNITY SUPPORT SPECIALIST - 07/08/2024 12:49 PM COMMUNITY SUPPORT SPECIALIST Hospital Encounter H PAT [address] [place] [address] Unknown, Provider Theron Medellin MD Discharge Disposition: Home or Self Care 07/08/2024 11:00 AM COMMUNITY SUPPORT SPECIALIST Office Visit [facility] TXP VAZQUE[facility] CSM 3L [address] [place] [address] Unknown, Provider Inguinal hernia of right side without obstruction or gangrene (Primary Dx); Alcoholic cirrhosis of liver without ascites (HCC); Pre-op evaluation 07/08/2024 Travel 07/07/2024 Travel 06/26/2024 7:10 AM COMMUNITY SUPPORT SPECIALIST - 06/26/2024 11:59 PM COMMUNITY SUPPORT SPECIALIST Hospital Encounter [facility] LAB OP DRAW STATION [address] [place] [address] Unknown, Provider Discharge Disposition: Home or Self Care 06/26/2024 Travel 06/18/2024 7:40 AM COMMUNITY SUPPORT SPECIALIST - 06/18/2024 11:59 PM COMMUNITY SUPPORT SPECIALIST Hospital Encounter [facility] LAB OP DRAW STATION [address] [place] [address] Melecio Graves MD Discharge Disposition: Home or Self Care 06/18/2024 Telephone [facility] - GI [address] [place] [phone] Melecio Graves MD Future Appointment (Called pt and left vm about setting up an appt with Dr. Graves for this Sunday, 06/20.) 06/18/2024 Telephone [facility] - GI [address] [place] [phone] Melecio Graves MD Appointment 06/17/2024 Travel 06/17/2024 Telephone Transitional Care at [address] [address] Carolyn Guzman, bowling ball grader 06/16/2024 Telephone Transitional Care at [address] [address] Melissa Leonard, bowling ball grader 06/11/2024 1:36 PM COMMUNITY SUPPORT SPECIALIST - 06/14/2024 11:00 AM COMMUNITY SUPPORT SPECIALIST Hospital Encounter [facility] SHORT STAY UNIT [address] [place] [address] Sandro Davis MD Ishiyama, Takaaki, MD Qureshi, Kamran, MD Emergency Medicine Discharge Disposition: Home or Self Care 06/11/2024 Travel 06/06/2024 Telephone [facility] - [address] [address] Roman Mario, DIVINE Follow-up 06/05/2024 Orders Only [facility] - GI [address] [place] [phone] Melecio Graves MD 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 ([facility]) 06/05/2024 Telephone [facility] RAD CSM [address]L [address] [place] [phone] Julian Campbell, RN Refill Request 06/04/2024 Telephone [facility] - Nephrology [address] [place] [phone] Melecio Graves MD Coordination Of Care 06/02/2024 Orders Only [facility] - GI [address] [place] [phone] Melecio Graves MD 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 ([facility]) 05/30/2024 Transitional Care [facility] CARE COORDINATION [address] [place] [address] Hermelinda Valadez, DIVINE Transitions Of Care 05/30/2024 Transitional Care [facility] CARE COORDINATION [address] [place] [address] Hermelinda Valadez, DIVINE Transitions Of Care 05/20/2024 6:07 PM COMMUNITY SUPPORT SPECIALIST Anesthesia Event [facility] LANETTE OP [address] [place] [address] Nickolas Donahue MD Garcia, Alec, MD 05/20/2024 6:03 PM COMMUNITY SUPPORT SPECIALIST - 05/20/2024 7:27 PM COMMUNITY SUPPORT SPECIALIST Surgery [facility] LANETTE OP [address] [place] [address] Gerardo Álvarez MD IRRIGATION/DEBRIDEMENT LEG/KNEE 05/19/2024 12:15 PM COMMUNITY SUPPORT SPECIALIST - 05/28/2024 3:42 PM COMMUNITY SUPPORT SPECIALIST Hospital Encounter [facility] 6N ACUTE [address] [place] [address] John Gutiérrez DO Kiwan, Wissam, MD Agbim, Uchenna A, MD SynJackson MD Gastroenterology Discharge Disposition: Home or Self Care 05/19/2024 Travel 05/16/2024 Telephone [facility] - GI [address] [place] [address] Melecio Graves MD Medication Request 05/13/2024 10:45 AM COMMUNITY SUPPORT SPECIALIST Office Visit [facility] TXP [facility] CSM 3L [address] [place] [address] Theron Medellin MD Right inguinal [...] and heating? Not hard at all 06/12/2024 [facility] - Occupational Stress [...] place to sleep or slept in a halfway (including now)? No 11/01/2023 Housing Stability Vital Sign Answer Armaan e Recorded In the last 12 months, was t here a time when you were not able to pay the mortgage or rent on time? No 06/12/2024 In the past 12 months, how m any times have you moved where you were living? 0 06/12/2024 At any time in the past 12 m [facility], were you homeless or living in a halfway (including now)? No 06/12/2024 Sex and Gender Information Value Date Recorded Sex Assigned at Not on file Gender Identity Not on file Sexual Orientation Not on file Last Filed Vital Signs Vital Sign Reading Time Taken Comments Blood Pressure 129/57 08/05/2024 12:50 PM COMMUNITY SUPPORT SPECIALIST Pulse 56 08/05/2024 12:50 PM COMMUNITY SUPPORT SPECIALIST Temperature 36.5 C (97.7 F) 08/05/2024 12:50 PM COMMUNITY SUPPORT SPECIALIST Respiratory Rate 14 08/05/2024 12:50 PM COMMUNITY SUPPORT SPECIALIST Oxygen Saturation 100% 08/05/2024 12:50 PM COMMUNITY SUPPORT SPECIALIST Inhaled Oxygen Concentration 30% 10/31/2023 5 :04 PM CDT Weight 77.1 kg (170 lb) 08/05/2024 12:50 PM COMMUNITY SUPPORT SPECIALIST Height 177.8 cm (5' 10 ) 08/05/2024 12:50 PM COMMUNITY SUPPORT SPECIALIST Body Mass Index 24.39 08/05/2024 12:50 PM COMMUNITY SUPPORT SPECIALIST Plan of Treatment Upcoming Encounters Date Type Department Care Team (Late st Contact Info) Description 08/14/2024 10:45 AM COMMUNITY SUPPORT SPECIALIST Office Visit [facility] - Orthopedics [address] [place] [address], [place] [address] Yaima Dobbins MD [address] [place] [address] OF ORTHOPEDIC SURGERY [place], [place] [phone] Health Maintenance Due Date Last Done Comments [...] last dose Medical Devices Implanted Type Area Flue Dust Laborer Device Identifier Shelf Expiration Date Model / Serial / Lot Kit Durathane Drflw Embosafe Chrnc Dlys Implanted:Qty: 1 on 03/07/2019 by Trav Merrill MD at [facility] Right: Chest [employer] 03/31/2021 [id number] / [id number] Graft Vasc 6mm 40cm Ptfe Flixene Sldr - [id number] Implanted:Qty: 1 on 02/21/2022 by Kiko Pena MD at [facility] Left: Arterial Maquet 07/20/2023 [id number] / [id number] / Mesh Srg Parietex Progrip 14x9cm Slf Implanted:Qty: 1 on 07/11/2024 by Theron Medellin MD at [facility] Right: Inguinal Covidien [id number] 08/29/2028 [id number] / / [id number] Procedures Procedure Name Priority Date/Time Associated Diagnosis Comments COMPREHENSIVE METABOLIC PANEL STAT 08/05/2024 2:28 PM COMMUNITY SUPPORT SPECIALIST GLUCOSE - POINT OF CARE Routine 08/05/2024 2:27 PM COMMUNITY SUPPORT SPECIALIST DIFFERENTIAL MANUAL Routine 07/24/2024 7 :38 AM COMMUNITY SUPPORT SPECIALIST Pre-liver transplant, listed Pre-kidney transplant, listed Alcoholic cirrhosis of liver with ascites (HCC) ESRD on dialysis (HCC) Stage 5 chronic kidney disease (HCC) MPGN (membranoprolifer ative glomerulonephriti sahil) PT-INR [facility] Routine 07/24/2024 7:38 AM COMMUNITY SUPPORT SPECIALIST Pre-liver transplant, listed Pre-kidney transplant, listed Alcoholic cirrhosis of liver with ascites (HCC) ESRD on dialysis (HCC) Stage 5 chronic kidney disease (HCC) MPGN (membranoprolifer ative glomerulonephriti sahil) CBC W AUTO DIFFERENTIAL Routine 07/24/2024 7:38 AM COMMUNITY SUPPORT SPECIALIST Pre-liver transplant, listed Pre-kidney transplant, listed Alcoholic cirrhosis of liver with ascites (HCC) ESRD on dialysis (HCC) Stage 5 chronic kidney disease (HCC) MPGN (membranoprolifer ative glomerulonephriti sahil) COMPREHENSIVE METABOLIC PANEL Routine 07/24/2024 7:38 AM COMMUNITY SUPPORT SPECIALIST Pre-liver transplant, listed Pre-kidney transplant, listed Alcoholic cirrhosis of liver with ascites (HCC) ESRD on dialysis (HCC) Stage 5 chronic kidney disease (HCC) MPGN (membranoprolifer ative glomerulonephriti sahil) APHERESIS/TRANSFUSION ORDER 07/14/2024 1:38 PM COMMUNITY SUPPORT SPECIALIST PREPARE RBC LEUKOREDUCED UNIT Routine 07/12/2024 1:17 AM COMMUNITY SUPPORT SPECIALIST ESRD (end stage renal disease) on dialysis (HCC) Hepatic cirrhosis, unspecified hepatic cirrhosis type, unspecified whether ascites present (HCC) PATHOLOGY TISSUE Routine 07/11/2024 8:43 AM COMMUNITY SUPPORT SPECIALIST Inguinal hernia without obstruction or gangrene, recurrence not specified, unspecified laterality ENDOTRACHEAL TUBE NOTE Routine 7:55 AM COMMUNITY SUPPORT SPECIALIST TRANSFUSE PLATELET PHERESIS UNIT(S) Routine 07/11/2024 7:14 AM COMMUNITY SUPPORT SPECIALIST ID RPR 1ST INGUN HRNA AGE 5 YRS/> REDUCIBLE 07/11/2024 7:04 AM COMMUNITY SUPPORT SPECIALIST Inguinal hernia without obstruction or gangrene, recurrence not specified, unspecified laterality Case Notes KW 07/10 Special Needs Supine PREPARE PLATELET PHERESIS UNIT(S) Routine 07/11/2024 6:54 AM COMMUNITY SUPPORT SPECIALIST ESRD (end stage renal disease) on dialysis (HCC) Hepatic cirrhosis, unspecified hepatic cirrhosis type, unspecified whether ascites present (HCC) TYPE + SCREEN PANEL STAT 07/11/2024 5 :57 AM COMMUNITY SUPPORT SPECIALIST Pre-op evaluation POTASSIUM WHOLE BLD STAT 07/11/2024 5 :57 AM COMMUNITY SUPPORT SPECIALIST Pre-op evaluation TYPE + SCREEN PANEL STAT 07/08/2024 12:56 PM COMMUNITY SUPPORT SPECIALIST Pre-op evaluation PT-INR [facility] Routine 07/08/2024 12:56 PM COMMUNITY SUPPORT SPECIALIST Inguinal hernia of right side without obstruction or gangrene Alcoholic cirrhosis of liver without ascites (HCC) Pre-op evaluation CBC W AUTO DIFFERENTIAL Routine 07/08/2024 12:56 PM COMMUNITY SUPPORT SPECIALIST Inguinal hernia of right side without obstruction or gangrene Alcoholic cirrhosis of liver without ascites (HCC) Pre-op evaluation COMPREHENSIVE METABOLIC PANEL Routine 07/08/2024 12:56 PM COMMUNITY SUPPORT SPECIALIST Inguinal hernia of right side without obstruction or gangrene Alcoholic cirrhosis of liver without ascites (HCC) Pre-op evaluation PT-INR [facility] Routine 06/26/2024 7:12 AM COMMUNITY SUPPORT SPECIALIST Pre-liver transplant, listed Pre-kidney transplant, listed Alcoholic cirrhosis of liver with ascites (HCC) ESRD on dialysis (HCC) Stage 5 chronic kidney disease (HCC) MPGN (membranoprolifer ative glomerulonephriti sahil) CBC W AUTO DIFFERENTIAL Routine 06/26/2024 7:12 AM COMMUNITY SUPPORT SPECIALIST Pre-liver transplant, listed Pre-kidney transplant, listed Alcoholic cirrhosis of liver with ascites (HCC) ESRD on dialysis (HCC) Stage 5 chronic kidney disease (HCC) MPGN (membranoprolifer ative glomerulonephriti sahil) COMPREHENSIVE METABOLIC PANEL Routine 06/26/2024 7:12 AM COMMUNITY SUPPORT SPECIALIST Pre-liver transplant, listed Pre-kidney transplant, listed Alcoholic cirrhosis of liver with ascites (HCC) ESRD on dialysis (HCC) Stage 5 chronic kidney disease (HCC) MPGN (membranoprolifer ative glomerulonephriti sahil) CBC W AUTO DIFFERENTIAL Routine 06/18/2024 8:18 AM COMMUNITY SUPPORT SPECIALIST Acute pain of right knee PT-INR [facility] Routine 06/18/2024 8:18 AM COMMUNITY SUPPORT SPECIALIST Pre-liver transplant, listed Pre-kidney transplant, listed Alcoholic cirrhosis of liver with ascites (HCC) ESRD on dialysis (HCC) Stage 5 chronic kidney disease (HCC) MPGN (membranoprolifer ative glomerulonephriti sahil) COMPREHENSIVE METABOLIC PANEL Routine 06/18/2024 8:18 AM COMMUNITY SUPPORT SPECIALIST Pre-liver transplant, listed Pre-kidney transplant, listed Alcoholic cirrhosis of liver with ascites (HCC) ESRD on dialysis (HCC) Stage 5 chronic kidney disease (HCC) MPGN (membranoprolifer ative glomerulonephriti sahil) PT-INR [facility] AM Draw 06/14/2024 12:37 AM COMMUNITY SUPPORT SPECIALIST MAGNESIUM BLOOD AM Draw 06/14/2024 12:37 AM COMMUNITY SUPPORT SPECIALIST CBC W/O DIFFERENTIAL AM Draw 06/14/2024 12:37 AM COMMUNITY SUPPORT SPECIALIST BASIC METABOLIC PANEL (CALCIUM TOTAL) AM Draw 06/14/2024 12:37 AM COMMUNITY SUPPORT SPECIALIST TRANSFUSE RED BLOOD CELL LEUKOREDUCED UNIT(S) Routine 06/13/2024 11:23 AM COMMUNITY SUPPORT SPECIALIST PREPARE RBC LEUKOREDUCED UNIT PENDING DISCHARGE 06/13/2024 11:00 AM COMMUNITY SUPPORT SPECIALIST VITAMIN B12 Routine 06/13/2024 8:48 AM COMMUNITY SUPPORT SPECIALIST FOLATE Routine 06/13/2024 8:48 AM COMMUNITY SUPPORT SPECIALIST HEPATIC FUNCTION PANEL Routine 8:48 AM COMMUNITY SUPPORT SPECIALIST DIFFERENTIAL MANUAL Routine 06/13/2024 12:56 AM COMMUNITY SUPPORT SPECIALIST CBC W AUTO DIFFERENTIAL Routine 06/13/2024 12:56 AM COMMUNITY SUPPORT SPECIALIST PT-INR [facility] AM Draw 06/13/2024 12:56 AM COMMUNITY SUPPORT SPECIALIST MAGNESIUM BLOOD AM Draw 06/13/2024 12:56 AM COMMUNITY SUPPORT SPECIALIST CBC W/O DIFFERENTIAL AM Draw 06/13/2024 12:56 AM COMMUNITY SUPPORT SPECIALIST BASIC METABOLIC PANEL (CALCIUM TOTAL) AM Draw 06/13/2024 12:56 AM COMMUNITY SUPPORT SPECIALIST HEMODIALYSIS INPATIENT Routine 4 4:05 PM COMMUNITY SUPPORT SPECIALIST TYPE + SCREEN PANEL Routine 06/12/2024 1 :23 AM COMMUNITY SUPPORT SPECIALIST DIFFERENTIAL MANUAL Add on 06/12/2024 1 :23 AM COMMUNITY SUPPORT SPECIALIST IRON + TRANSFERRIN PANEL Routine 06/12/2024 1:23 AM COMMUNITY SUPPORT SPECIALIST FERRITIN Routine 06/12/2024 1:23 AM COMMUNITY SUPPORT SPECIALIST PTH INTACT W/O CALCIUM AM Draw 1:23 AM COMMUNITY SUPPORT SPECIALIST PT-INR [facility] AM Draw 06/12/2024 1:23 AM COMMUNITY SUPPORT SPECIALIST MAGNESIUM BLOOD AM Draw 06/12/2024 1:23 AM COMMUNITY SUPPORT SPECIALIST CBC W/O DIFFERENTIAL AM Draw 06/12/2024 1:23 AM COMMUNITY SUPPORT SPECIALIST BASIC METABOLIC PANEL (CALCIUM TOTAL) AM Draw 06/12/2024 1:23 AM COMMUNITY SUPPORT SPECIALIST EKG 12-LEAD STAT 06/11/2024 7:45 PM COMMUNITY SUPPORT SPECIALIST Acute pain of right knee ESRD (end stage renal disease) (HCC) Hepatic cirrhosis, unspecified hepatic cirrhosis type, unspecified whether ascites present (HCC) Hyperkalemia COMPREHENSIVE METABOLIC PANEL STAT 06/11/2024 6:21 PM COMMUNITY SUPPORT SPECIALIST CT KNEE RIGHT WO CONTRAST STAT 06/11/2024 5:55 PM COMMUNITY SUPPORT SPECIALIST Acute pain of right knee XR KNEE RIGHT 3VW STAT 06/11/2024 3:4 1 PM COMMUNITY SUPPORT SPECIALIST Acute pain of right knee C-REACTIVE PROTEIN JOSUÉ 06/11/2024 8: 18 AM COMMUNITY SUPPORT SPECIALIST ERYTHROCYTE SEDIMENTATION RATE STAT 06/11/2024 8:18 AM COMMUNITY SUPPORT SPECIALIST PHOSPHORUS BLOOD STAT 06/11/2024 8:18 AM COMMUNITY SUPPORT SPECIALIST MAGNESIUM BLOOD STAT 06/11/2024 8:18 AM COMMUNITY SUPPORT SPECIALIST COMPREHENSIVE METABOLIC PANEL STAT 06/11/2024 8:18 AM COMMUNITY SUPPORT SPECIALIST CBC W AUTO DIFFERENTIAL STAT 06/11/2024 8:18 AM COMMUNITY SUPPORT SPECIALIST COMPREHENSIVE METABOLIC PANEL Routine 05/28/2024 6:51 AM COMMUNITY SUPPORT SPECIALIST ESRD (end stage renal disease) on dialysis (HCC) Alcoholic cirrhosis of liver without ascites (HCC) PT-INR [facility] Routine 05/28/2024 6:51 AM COMMUNITY SUPPORT SPECIALIST ESRD (end stage renal disease) on dialysis (HCC) Alcoholic cirrhosis of liver without ascites (HCC) BILIRUBIN DIRECT Routine 05/28/2024 6:51 AM COMMUNITY SUPPORT SPECIALIST ESRD (end stage renal disease) on dialysis (HCC) Alcoholic cirrhosis of liver without ascites (HCC) CBC W/O DIFFERENTIAL Routine 05/28/2024 6:51 AM COMMUNITY SUPPORT SPECIALIST ESRD (end stage renal disease) on dialysis (HCC) Alcoholic cirrhosis of liver without ascites (HCC) MAGNESIUM BLOOD Routine 05/28/2024 6:51 AM COMMUNITY SUPPORT SPECIALIST ESRD (end stage renal disease) on dialysis (HCC) Alcoholic cirrhosis of liver without ascites (HCC) PHOSPHORUS BLOOD Routine 05/28/2024 6:51 AM COMMUNITY SUPPORT SPECIALIST ESRD (end stage renal disease) on dialysis (HCC) Alcoholic cirrhosis of liver without ascites (HCC) COMPREHENSIVE METABOLIC PANEL Routine 05/27/2024 3:07 AM COMMUNITY SUPPORT SPECIALIST ESRD (end stage renal disease) on dialysis (HCC) Alcoholic cirrhosis of liver without ascites (HCC) PT-INR [facility] Routine 05/27/2024 3:07 AM COMMUNITY SUPPORT SPECIALIST ESRD (end stage renal disease) on dialysis (HCC) Alcoholic cirrhosis of liver without ascites (HCC) BILIRUBIN DIRECT Routine 05/27/2024 3:07 AM COMMUNITY SUPPORT SPECIALIST ESRD (end stage renal disease) on dialysis (HCC) Alcoholic cirrhosis of liver without ascites (HCC) CBC W/O DIFFERENTIAL Routine 05/27/2024 3:07 AM COMMUNITY SUPPORT SPECIALIST ESRD (end stage renal disease) on dialysis (HCC) Alcoholic cirrhosis of liver without ascites (HCC) MAGNESIUM BLOOD Routine 05/27/2024 3:07 AM COMMUNITY SUPPORT SPECIALIST ESRD (end stage renal disease) on dialysis (HCC) Alcoholic cirrhosis of liver without ascites (HCC) PHOSPHORUS BLOOD Routine 05/27/2024 3:07 AM COMMUNITY SUPPORT SPECIALIST ESRD (end stage renal disease) on dialysis (HCC) Alcoholic cirrhosis of liver without ascites (HCC) COMPREHENSIVE METABOLIC PANEL Routine 05/26/2024 4:20 AM COMMUNITY SUPPORT SPECIALIST ESRD (end stage renal disease) on dialysis (HCC) Alcoholic cirrhosis of liver without ascites (HCC) PT-INR [facility] Routine 05/26/2024 4:20 AM COMMUNITY SUPPORT SPECIALIST ESRD (end stage renal disease) on dialysis (HCC) Alcoholic cirrhosis of liver without ascites (HCC) BILIRUBIN DIRECT Routine 05/26/2024 4:20 AM COMMUNITY SUPPORT SPECIALIST ESRD (end stage renal disease) on dialysis (HCC) Alcoholic cirrhosis of liver without ascites (HCC) CBC W/O DIFFERENTIAL Routine 05/26/2024 4:20 AM COMMUNITY SUPPORT SPECIALIST ESRD (end stage renal disease) on dialysis (HCC) Alcoholic cirrhosis of liver without ascites (HCC) MAGNESIUM BLOOD Routine 05/26/2024 4:20 AM COMMUNITY SUPPORT SPECIALIST ESRD (end stage renal disease) on dialysis (HCC) Alcoholic cirrhosis of liver without ascites (HCC) PHOSPHORUS BLOOD Routine 05/26/2024 4:20 AM COMMUNITY SUPPORT SPECIALIST ESRD (end stage renal disease) on dialysis (HCC) Alcoholic cirrhosis of liver without ascites (HCC) COMPREHENSIVE METABOLIC PANEL Routine 05/25/2024 3:51 AM COMMUNITY SUPPORT SPECIALIST ESRD (end stage renal disease) on dialysis (HCC) Alcoholic cirrhosis of liver without ascites (HCC) PT-INR [facility] Routine 05/25/2024 3:51 AM COMMUNITY SUPPORT SPECIALIST ESRD (end stage renal disease) on dialysis (HCC) Alcoholic cirrhosis of liver without ascites (HCC) BILIRUBIN DIRECT Routine 05/25/2024 3:51 AM COMMUNITY SUPPORT SPECIALIST ESRD (end stage renal disease) on dialysis (HCC) Alcoholic cirrhosis of liver without ascites (HCC) CBC W/O DIFFERENTIAL Routine 05/25/2024 3:51 AM COMMUNITY SUPPORT SPECIALIST ESRD (end stage renal disease) on dialysis (HCC) Alcoholic cirrhosis of liver without ascites (HCC) MAGNESIUM BLOOD Routine 05/25/2024 3:51 AM COMMUNITY SUPPORT SPECIALIST ESRD (end stage renal disease) on dialysis (HCC) Alcoholic cirrhosis of liver without ascites (HCC) PHOSPHORUS BLOOD Routine 05/25/2024 3:51 AM COMMUNITY SUPPORT SPECIALIST ESRD (end stage renal disease) on dialysis (HCC) Alcoholic cirrhosis of liver without ascites (HCC) HEMODIALYSIS INPATIENT Routine 12:00 AM COMMUNITY SUPPORT SPECIALIST XR PANOREX Routine 05/24/2024 2:12 PM COMMUNITY SUPPORT SPECIALIST 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) COMPREHENSIVE METABOLIC PANEL Routine 05/24/2024 3:08 AM COMMUNITY SUPPORT SPECIALIST ESRD (end stage renal disease) on dialysis (HCC) Alcoholic cirrhosis of liver without ascites (HCC) PT-INR [facility] Routine 05/24/2024 3:08 AM COMMUNITY SUPPORT SPECIALIST ESRD (end stage renal disease) on dialysis (HCC) Alcoholic cirrhosis of liver without ascites (HCC) BILIRUBIN DIRECT Routine 05/24/2024 3:08 AM COMMUNITY SUPPORT SPECIALIST ESRD (end stage renal disease) on dialysis (HCC) Alcoholic cirrhosis of liver without ascites (HCC) CBC W/O DIFFERENTIAL Routine 05/24/2024 3:08 AM COMMUNITY SUPPORT SPECIALIST ESRD (end stage renal disease) on dialysis (HCC) Alcoholic cirrhosis of liver without ascites (HCC) MAGNESIUM BLOOD Routine 05/24/2024 3:08 AM COMMUNITY SUPPORT SPECIALIST ESRD (end stage renal disease) on dialysis (HCC) Alcoholic cirrhosis of liver without ascites (HCC) PHOSPHORUS BLOOD Routine 05/24/2024 3:08 AM COMMUNITY SUPPORT SPECIALIST ESRD (end stage renal disease) on dialysis (HCC) Alcoholic cirrhosis of liver without ascites (HCC) PTH INTACT W/O CALCIUM Routine 8:46 AM COMMUNITY SUPPORT SPECIALIST FERRITIN Routine 05/23/2024 8:46 AM COMMUNITY SUPPORT SPECIALIST VITAMIN D 25-HYDROXY Routine 05/23/2024 3:23 AM COMMUNITY SUPPORT SPECIALIST IRON + TRANSFERRIN PANEL Routine 05/23/2024 3:23 AM COMMUNITY SUPPORT SPECIALIST VANCOMYCIN LEVEL RANDOM Routine 05/23/2024 3:23 AM COMMUNITY SUPPORT SPECIALIST COMPREHENSIVE METABOLIC PANEL Routine 05/23/2024 3:23 AM COMMUNITY SUPPORT SPECIALIST ESRD (end stage renal disease) on dialysis (HCC) Alcoholic cirrhosis of liver without ascites (HCC) PT-INR SLH Routine 05/23/2024 3:23 AM COMMUNITY SUPPORT SPECIALIST ESRD (end stage renal disease) on dialysis (HCC) Alcoholic cirrhosis of liver without ascites (HCC) BILIRUBIN DIRECT Routine 05/23/2024 3:23 AM COMMUNITY SUPPORT SPECIALIST ESRD (end stage renal disease) on dialysis (HCC) Alcoholic cirrhosis of liver without ascites (HCC) CBC W/O DIFFERENTIAL Routine 05/23/2024 3:23 AM COMMUNITY SUPPORT SPECIALIST ESRD (end stage renal disease) on dialysis (HCC) Alcoholic cirrhosis of liver without ascites (HCC) MAGNESIUM BLOOD Routine 05/23/2024 3:23 AM COMMUNITY SUPPORT SPECIALIST ESRD (end stage renal disease) on dialysis (HCC) Alcoholic cirrhosis of liver without ascites (HCC) PHOSPHORUS BLOOD Routine 05/23/2024 3:23 AM COMMUNITY SUPPORT SPECIALIST ESRD (end stage renal disease) on dialysis (HCC) Alcoholic cirrhosis of liver without ascites (HCC) GLUCOSE - POINT OF CARE Routine 05/22/2024 4:19 PM COMMUNITY SUPPORT SPECIALIST HEMODIALYSIS INPATIENT Routine 3:49 PM COMMUNITY SUPPORT SPECIALIST CHLAMYDIA + GC AMPLIFIED PROBE Routine 05/22/2024 1:26 PM COMMUNITY SUPPORT SPECIALIST GLUCOSE - POINT OF CARE Routine 05/22/2024 12:44 PM COMMUNITY SUPPORT SPECIALIST CULTURE BLOOD Timed 05/22/2024 9:38 AM COMMUNITY SUPPORT SPECIALIST CULTURE BLOOD Timed 05/22/2024 9:25 AM COMMUNITY SUPPORT SPECIALIST GLUCOSE - POINT OF CARE Routine 05/22/2024 8:09 AM COMMUNITY SUPPORT SPECIALIST VANCOMYCIN LEVEL RANDOM Routine 05/22/2024 2:55 AM COMMUNITY SUPPORT SPECIALIST COMPREHENSIVE METABOLIC PANEL Routine 05/22/2024 2:55 AM COMMUNITY SUPPORT SPECIALIST ESRD (end stage renal disease) on dialysis (HCC) Alcoholic cirrhosis of liver without ascites (HCC) PT-INR SLH Routine 05/22/2024 2:55 AM COMMUNITY SUPPORT SPECIALIST ESRD (end stage renal disease) on dialysis (HCC) Alcoholic cirrhosis of liver without ascites (HCC) BILIRUBIN DIRECT Routine 05/22/2024 2:55 AM COMMUNITY SUPPORT SPECIALIST ESRD (end stage renal disease) on dialysis (HCC) Alcoholic cirrhosis of liver without ascites (HCC) CBC W/O DIFFERENTIAL Routine 05/22/2024 2:55 AM COMMUNITY SUPPORT SPECIALIST ESRD (end stage renal disease) on dialysis (HCC) Alcoholic cirrhosis of liver without ascites (HCC) MAGNESIUM BLOOD Routine 05/22/2024 2:55 AM COMMUNITY SUPPORT SPECIALIST ESRD (end stage renal disease) on dialysis (HCC) Alcoholic cirrhosis of liver without ascites (HCC) PHOSPHORUS BLOOD Routine 05/22/2024 2:55 AM COMMUNITY SUPPORT SPECIALIST ESRD (end stage renal disease) on dialysis (HCC) Alcoholic cirrhosis of liver without ascites (HCC) GLUCOSE - POINT OF CARE Routine 05/21/2024 4:15 PM COMMUNITY SUPPORT SPECIALIST GLUCOSE - POINT OF CARE Routine 05/21/2024 12:32 PM COMMUNITY SUPPORT SPECIALIST HEMODIALYSIS INPATIENT Routine 11:06 AM COMMUNITY SUPPORT SPECIALIST SYPHILIS ANTIBODY CASCADING REFLEX Routine 05/21/2024 2:29 AM COMMUNITY SUPPORT SPECIALIST HEPATITIS C AB SCREEN RFLX NAAT QUANT Routine 05/21/2024 2:29 AM COMMUNITY SUPPORT SPECIALIST HIV-1 HIV-2 ANTIBODY + HIV P24 AG PANEL STAT 05/21/2024 2:29 AM COMMUNITY SUPPORT SPECIALIST VANCOMYCIN LEVEL RANDOM Routine 05/21/2024 2:29 AM COMMUNITY SUPPORT SPECIALIST Pain and swelling of right knee COMPREHENSIVE METABOLIC PANEL Routine 05/21/2024 2:29 AM COMMUNITY SUPPORT SPECIALIST ESRD (end stage renal disease) on dialysis (HCC) Alcoholic cirrhosis of liver without ascites (HCC) PT-INR SLH Routine 05/21/2024 2:29 AM COMMUNITY SUPPORT SPECIALIST ESRD (end stage renal disease) on dialysis (HCC) Alcoholic cirrhosis of liver without ascites (HCC) BILIRUBIN DIRECT Routine 05/21/2024 2:29 AM COMMUNITY SUPPORT SPECIALIST ESRD (end stage renal disease) on dialysis (HCC) Alcoholic cirrhosis of liver without ascites (HCC) CBC W/O DIFFERENTIAL Routine 05/21/2024 2:29 AM COMMUNITY SUPPORT SPECIALIST ESRD (end stage renal disease) on dialysis (HCC) Alcoholic cirrhosis of liver without ascites (HCC) MAGNESIUM BLOOD Routine 05/21/2024 2:29 AM COMMUNITY SUPPORT SPECIALIST ESRD (end stage renal disease) on dialysis (HCC) Alcoholic cirrhosis of liver without ascites (HCC) PHOSPHORUS BLOOD Routine 05/21/2024 2:29 AM COMMUNITY SUPPORT SPECIALIST ESRD (end stage renal disease) on dialysis (HCC) Alcoholic cirrhosis of liver without ascites (HCC) PATHOLOGY SMEAR BODY FLUID Routine 05/20/2024 6:41 PM COMMUNITY SUPPORT SPECIALIST CRYSTAL INDENTIFICATION SYNOVIAL FLUID Routine 05/20/2024 6:41 PM COMMUNITY SUPPORT SPECIALIST CULTURE WOUND+GRAM STAIN STAT 05/20/2024 6:41 PM COMMUNITY SUPPORT SPECIALIST CULTURE ANAEROBE Routine 05/20/2024 6:41 PM COMMUNITY SUPPORT SPECIALIST ENDOTRACHEAL TUBE NOTE Routine 6:24 PM COMMUNITY SUPPORT SPECIALIST ID PANKAJ SUBQ TISSUE 20 SQ CM/< 05/20/2024 6:03 PM COMMUNITY SUPPORT SPECIALIST Infection Special Needs 05/20 @ 0611 CW COMPREHENSIVE METABOLIC PANEL STAT 05/20/2024 3:32 AM COMMUNITY SUPPORT SPECIALIST ESRD (end stage renal disease) on dialysis (HCC) Alcoholic cirrhosis of liver without ascites (HCC) PT-INR SLH STAT 05/20/2024 3:32 AM COMMUNITY SUPPORT SPECIALIST ESRD (end stage renal disease) on dialysis (HCC) Alcoholic cirrhosis of liver without ascites (HCC) BILIRUBIN DIRECT STAT 05/20/2024 3:32 AM COMMUNITY SUPPORT SPECIALIST ESRD (end stage renal disease) on dialysis (HCC) Alcoholic cirrhosis of liver without ascites (HCC) CBC W/O DIFFERENTIAL STAT 05/20/2024 3:32 AM COMMUNITY SUPPORT SPECIALIST ESRD (end stage renal disease) on dialysis (HCC) Alcoholic cirrhosis of liver without ascites (HCC) MAGNESIUM BLOOD STAT 05/20/2024 3:32 AM COMMUNITY SUPPORT SPECIALIST ESRD (end stage renal disease) on dialysis (HCC) Alcoholic cirrhosis of liver without ascites (HCC) PHOSPHORUS BLOOD STAT 05/20/2024 3:32 AM COMMUNITY SUPPORT SPECIALIST ESRD (end stage renal disease) on dialysis (HCC) Alcoholic cirrhosis of liver without ascites (HCC) TRANSFUSE PLATELET PHERESIS UNIT(S) Routine 05/20/2024 2:20 AM COMMUNITY SUPPORT SPECIALIST PREPARE PLATELET PHERESIS UNIT(S) STAT 05/20/2024 1:49 AM COMMUNITY SUPPORT SPECIALIST URIC ACID BLOOD STAT 05/19/2024 11:55 PM COMMUNITY SUPPORT SPECIALIST Pain and swelling of right knee CBC W/O DIFFERENTIAL STAT 05/19/2024 11:55 PM COMMUNITY SUPPORT SPECIALIST Pain and swelling of right knee Thrombocytopenia (HCC) HEMODIALYSIS INPATIENT Routine 8:51 PM COMMUNITY SUPPORT SPECIALIST CULTURE ANAEROBE STAT 05/19/2024 7:43 PM COMMUNITY SUPPORT SPECIALIST Pain and swelling of right knee PATHOLOGY SMEAR BODY FLUID STAT 05/19/2024 7:42 PM COMMUNITY SUPPORT SPECIALIST Pain and swelling of right knee DIFFERENTIAL MANUAL FLUID STAT 05/19/2024 7:42 PM COMMUNITY SUPPORT SPECIALIST Pain and swelling of right knee CELL COUNT W DIFFERENTIAL FLUID STAT 05/19/2024 7:42 PM COMMUNITY SUPPORT SPECIALIST Pain and swelling of right knee CULTURE FUNGUS OTHER+FUNGUS SMEAR STAT 05/19/2024 7:42 PM COMMUNITY SUPPORT SPECIALIST Pain and swelling of right knee CULTURE FLUID+GRAM STAIN STAT 05/19/2024 7:42 PM COMMUNITY SUPPORT SPECIALIST Pain and swelling of right knee ERYTHROCYTE SEDIMENTATION RATE STAT 05/19/2024 4:30 PM COMMUNITY SUPPORT SPECIALIST Pain and swelling of right knee C-REACTIVE PROTEIN JOSUÉ 05/19/2024 4: 30 PM COMMUNITY SUPPORT SPECIALIST Pain and swelling of right knee CBC W/O DIFFERENTIAL STAT 05/19/2024 4:30 PM COMMUNITY SUPPORT SPECIALIST Thrombocytopenia (HCC) TRANSFUSE PLATELET PHERESIS UNIT(S) Routine 05/19/2024 3:45 PM COMMUNITY SUPPORT SPECIALIST PREPARE PLATELET PHERESIS UNIT(S) STAT 05/19/2024 3:28 PM COMMUNITY SUPPORT SPECIALIST TYPE + SCREEN PANEL STAT 05/19/2024 2 :23 PM COMMUNITY SUPPORT SPECIALIST PT-INR SLH STAT 05/19/2024 2:23 PM COMMUNITY SUPPORT SPECIALIST OBTAIN CONSENT FOR TRANSFUSION Routine 05/19/2024 1:58 PM COMMUNITY SUPPORT SPECIALIST XR KNEE RIGHT 3VW STAT 05/19/2024 11:59 AM COMMUNITY SUPPORT SPECIALIST Pain and swelling of right knee MAGNESIUM BLOOD STAT 05/19/2024 11:46 AM COMMUNITY SUPPORT SPECIALIST COMPREHENSIVE METABOLIC PANEL STAT 05/19/2024 11:46 AM COMMUNITY SUPPORT SPECIALIST CBC W AUTO DIFFERENTIAL STAT 05/19/2024 11:46 AM COMMUNITY SUPPORT SPECIALIST LIPID PROFILE Routine 12/25/2023 8:13 AM CDT [...] (ABNORMAL) COMPREHENSIVE METABOLIC PANEL (08/05/2024 2:28 PM COMMUNITY SUPPORT SPECIALIST) Only the most recent of17 resultswithin the time period is included. BUN 33(H) 7 - 26 mg/dL 08/05/2024 3:15 PM [facility] Creatinine 5.66(H) 0.71 - 1.16 mg/dL 08/05/2024 3:15 PM [facility] Sodium 138 136 - 145 mmol/L 08/05/2024 3:15 PM [facility] Potassium See Comment 3.5 - 4.5 mmol/L 08/05/2024 3:15 PM [facility] Comment:Significant hemolysi s detected in this specimen. Recommend repeat testing if clinically indicated. Chloride 101 98 - 107 mmol/L 08/05/2024 3:15 PM [facility] CO2 25 22 - 29 mmol/L 08/05/2024 3:15 PM [facility] Glucose 93 70 - 99 mg/dL 08/05/2024 3:15 PM [facility] Calcium 9.0 8.4 - 10.2 mg/dL 08/05/2024 3:15 PM [facility] Protein Total See Comment 6.0 - 8.3 g/dL 08/05/2024 3:15 PM [facility] Comment:Significant hemolysi s detected in this specimen. Hemolysis leads to artifactual elevations of this analyte. The result has been suppressed. Please reorder test and submit a new specimen if clinically indicated. [employer] Specialist of Clinical Chemistry ([phone]) if you suspect in vivo hemolysis. Albumin 3.3(L) 3.4 - 5.0 g/dL 08/05/2024 3:15 PM [facility] Bilirubin Total 1.3(H) 0.2 - 1.2 mg/dL 08/05/2024 3:15 PM [facility] Alkaline Phosphatase 149 40 - 150 U/L 08/05/2024 3:15 PM [facility] ALT 14 5 - 55 U/L 08/05/2024 3:15 PM [facility] AST See Comment 5 - 34 Units/L 08/05/2024 3:15 PM [facility] Comment: Significant hemolysis detected in this specimen. Hemolysis leads to artifactual elevations of this analyte. The result has been suppressed. Please reorder test and submit a new specimen if clinically indicated. [employer] Specialist of Clinical Chemistry ([phone]) if you suspect in vivo hemolysis. BUN/Creatinine Ratio 6(L) 7 - 23 08/05/2024 3:15 PM [facility] Osmolality Calculated 293 275 - 295 mOsm/kg 08/05/2024 3:15 PM [facility] Albumin/Globuli n Ratio 0.8(L) 1.1 - 2.3 08/05/2024 3:15 PM [facility] eGFR by CKD-EPI 11(L) >=90 mL/min/1. 73 m2 08/05/2024 3:15 PM [facility] Blood BLOOD SPECIMEN / Unknown Venipuncture / Unknown 08/05/2024 2:28 PM COMMUNITY SUPPORT SPECIALIST 08/05/2024 2:43 PM COMMUNITY SUPPORT SPECIALIST Amina Carrera INTERVENTIONAL NEURORADIOLOGIST-GUM MACHINE OPERATOR LAB - CHEMIS TRY ORDERABLES [facility] [address] [place] [phone], [facility] [phone] * GLUCOSE - POINT OF CARE (08/05/2024 2:27 PM COMMUNITY SUPPORT SPECIALIST) Only the most recent of6 resultswithin the time period is included. Glucose WB/POC 99 70 - 99 mg/dL 08/05/2024 9:01 PM [facility] Specimen Type Venous 08/05/2024 9:01 PM [facility] Blood BLOOD SPECIMEN / Unknown 08/05/2024 2:27 PM COMMUNITY SUPPORT SPECIALIST 08/05/2024 9:01 PM COMMUNITY SUPPORT SPECIALIST Provider Unknown LAB - POINT OF CARE ORDERABLES Performing Organization Address [facility] Co de Phone Number [address] [phone], [facility] [phone] * (ABNORMAL) PT-INR [facility] (07/24/2024 7:38 AM COMMUNITY SUPPORT SPECIALIST) Only the most recent of17 resultswithin the time period is included. PT 17.6(H) 12.1 - 14.8 Seconds 07/24/2024 8:36 AM [facility] INR 1.5 See Comment 07/24/2024 8:36 AM [facility] Comment:The suggested therap eutic range for standard coumadin (warfarin) therapy is an INR of 2.0-3.0. For high-risk patients (Mechanical Mitral Valve Prosthesis, etc.), the suggested prophylactic therapeutic range is an INR of 2.5-3.5. Blood BLOOD SPECIMEN / Unknown Lab Venipuncture / Unknown 07/24/2024 7:38 AM COMMUNITY SUPPORT SPECIALIST 07/24/2024 8:11 AM COMMUNITY SUPPORT SPECIALIST Melecio Graves MD LAB - COAGULATION OR DERABLES Performing Organization Address City/[facility]/ZIP Co de Phone Number [address] [address], [facility] [phone] * (ABNORMAL) DIFFERENTIAL MANUAL (07/24/2024 7:38 AM COMMUNITY SUPPORT SPECIALIST) Only the most recent of3 resultswithin the time period is included. Neutrophil % 73 41 - 74 % 07/24/2024 10:44 AM [facility] Lymphocyte % 15(L) 17 - 47 % 07/24/2024 10:44 AM [facility] Monocyte % 7 3 - 11 % 07/24/2024 10:44 AM [facility] Eosinophil % 4 0 - 7 % 07/24/2024 10:44 AM [facility] Basophil % 1 0 - 2 % 07/24/2024 10:44 AM [facility] Neutrophil Absolute 2.34 1.60 - 7.50 x10E9/L 07/24/2024 10:44 AM [facility] Lymphocyte Absolute 0.48(L) 1.00 - 4.40 x10E9/L 07/24/2024 10:44 AM [facility] Monocyte Absolute 0.22 0.15 - 1.00 x10E9/L 07/24/2024 10:44 AM [facility] Eosinophil Absolute 0.13 0.00 - 0.60 x10E9/L 07/24/2024 10:44 AM [facility] Basophil Absolute 0.03 0.00 - 0.13 x10E9/L 07/24/2024 10:44 AM [facility] RBC Morphology REVIEWED 07/24/2024 10:44 AM [facility] Blood BLOOD SPECIMEN / Unknown Lab Venipuncture / Unknown 07/24/2024 7:38 AM COMMUNITY SUPPORT SPECIALIST 07/24/2024 8:13 AM [facility] Melecio Graves MD LAB - HEMATOLOGY ORD ERABLES [facility] [address] [place] [phone], [facility] [phone] * (ABNORMAL) CBC W/ DIFFERENTIAL (07/24/2024 7:38 AM [facility]) Only the most recent of7 resultswithin the time period is included. WBC 3.2(L) 4.0 - 10.7 x10E9/L 07/24/2024 10:44 AM [facility] RBC Count 2.83(L) 4.30 - 5.80 x10E12/L 07/24/2024 10:44 AM [facility] Hemoglobin 9.3(L) 13.3 - 17.5 g/dL 07/24/2024 10:44 AM [facility] Hematocrit 27.9(L) 38.7 - 51.1 % 07/24/2024 10:44 AM [facility] MCV 98.6(H) 80.0 - 98.0 fL 07/24/2024 10:44 AM [facility] MCH 32.9 26.7 - 33.6 pg 07/24/2024 10:44 AM [facility] MCHC 33.3 31.7 - 36.3 g/dL 07/24/2024 10:44 AM [facility] RDW-CV 16.8(H) 11.3 - 14.8 % 07/24/2024 10:44 AM [facility] Platelet Count 48(L) 150 - 420 x10E9/L 07/24/2024 10:44 AM [facility] MPV 10.3 7.8 - 11.4 fL 07/24/2024 10:44 AM [facility] Blood BLOOD SPECIMEN / Unknown Lab Venipuncture / Unknown 07/24/2024 7:38 AM [facility] 07/24/2024 8:13 AM [facility] - 07/24/2024 10:44 AM COMMUNITY SUPPORT SPECIALIST A previously reported component NEUT % is [...] Graves MD LAB - HEMATOLOGY ORD ERABLES [facility] [address] [place] [address], [facility] [phone] * APHERESIS/TRANSFUSION ORDER (07/14/2024 1:38 PM COMMUNITY SUPPORT SPECIALIST) Narrative 07/14/2024 1:38 PM COMMUNITY SUPPORT SPECIALIST Ordered by an unspecified provider. Scanned Document NURSING - VITAL SIGN S AND ASSESSMENT * PREPARE (CROSSMATCH) RBC UNIT(S), 1 Units (07/12/2024 1:17 AM COMMUNITY SUPPORT SPECIALIST) Only the most recent of2 resultswithin the time period is included. Unit Description AS1 LR PRBC [facility] BLOOD BANK LAB Unit ABO O [facility] BLOOD BANK LAB Unit Rh NEG [facility] BLOOD BANK LAB Product Number R02 [facility] B LOOD BANK LAB Unit Donor # [id number] [facility] BLOOD BANK LAB Unit Status released [facility] BLOO D BANK LAB Product Code [id number] [facility] BLO OD BANK LAB Blood Type Barcode 9500 [facility] BLOOD BANK LAB Expiration Date [id number] S BLOOD BANK LAB Blood Bank BLOOD SPECIMEN / Unknown 07/11/2024 6:01 AM COMMUNITY SUPPORT SPECIALIST Pawan Lynn DO LAB - BLOOD BANK ORDERABLES [facility] BLOOD BANK LAB [address] [place] [address], [facility] [phone] * TRANSFUSE PLATELET PHERESIS UNIT(S) (07/11/2024 9:19 AM COMMUNITY SUPPORT SPECIALIST) Pawan Lynn DO NURSING - BLOOD P BETTIE TRANSFUSION * PATHOLOGY TISSUE (07/11/2024 8:43 AM COMMUNITY SUPPORT SPECIALIST) Case Report Surgical Pathology Report Case: [id number] Authorizing Provider: Theron Medellin MD Collected: 07/11/2024 08:43 AM Ordering Location: [facility] [place] OP Received: 07/11/2024 10:55 AM Pathologist: Bonnie Rene MD Specimen: Hernia Sac, RIGHT INGUINAL HERNIA SAC 07/14/2024 1:00 PM [facility] PATHOLOGY LAB Final Diagnosis Soft tissue, right inguinal hernia sac, excision (A): - Fibrosis, reactive changes, and extensive hemosiderin deposition 07/14/2024 1:00 PM [facility] Microscopic Description and Comment Microscopic examination substantiates the final diagnosis. 07/14/2024 1:00 PM [facility] Clinical History The patient is a 58-year-old man with right inguinal hernia. Operative procedure: Repair 07/14/2024 1:00 PM [facility] Gross Description The requisition and [...] layer. There are no additional gross lesions. Fire Inspector sections are submitted in cassette A1. IKD 07/14/2024 1:00 PM [facility] Pathologist Location at [facility] 07/14/2024 1:00 PM [facility] Disclaimer The performance characteristics of all immunohistochemical and indirect immunofluorescence stains (if any) cited in this report were determined by the Histopathology Laboratory of [facility]. Some of these tests were developed by [...] the attending (teaching) pathologist. 07/14/2024 1:00 PM [facility] Embedded Images 07/14/2024 1:00 PM [facility] Biopsy, Excision HERNIA SAC / Unknown 07/11/2024 8:43 AM COMMUNITY SUPPORT SPECIALIST 07/11/2024 10:55 AM COMMUNITY SUPPORT SPECIALIST Comment:Pre-op diagnosis: symptomatic right inguinal hernia Theron Medellin MD LAB - PATHOLOGY/CYTO LOGY ORDERABLES [facility] PATH[facility] LAB [address] [place] [address], [facility] [phone] * ETT LINE PERFORMABLE (07/11/2024 7:55 AM COMMUNITY SUPPORT SPECIALIST) Narrative Kayla Joyce Anes Asst - 07/11/2024 7:55 AM COMMUNITY SUPPORT SPECIALIST Kayla Joyce Anes Asst 07/11/2024 7:55 AM Endotracheal Tube Placement: Patient Location: OR. Intubation Event Date/Time: 07/11/2024 7:40 AM Procedure: intubation (45190) Procedure Section: Sedation: under general anesthesia. Indications [...] PHERESIS UNIT(S), 1 Units (07/11/2024 6:54 AM COMMUNITY SUPPORT SPECIALIST) Only the most recent of3 resultswithin the time period is included. Unit Description LR PLT Phere B7 [facility] BLOOD BANK LAB Unit ABO O [facility] BLOOD BANK LAB Unit Rh POS [facility] BLOOD BANK LAB Product Number P27 [facility] B LOOD BANK LAB Unit Donor # [id number] [facility] BLOOD BANK LAB Unit Status transfused [facility] BLO OD BANK LAB Product Code [id number] [facility] BLO OD BANK LAB Blood Type Barcode 5100 [facility] BLOOD BANK LAB Expiration Date [id number] S BLOOD BANK LAB Blood Bank BLOOD SPECIMEN / Unknown 07/11/2024 6:01 AM COMMUNITY SUPPORT SPECIALIST Pawan Lynn DO LAB - BLOOD BANK ORDERABLES [facility] BLOOD BANK LAB [address] [place] [address], [facility] [phone] * TYPE + SCREEN PANEL (07/11/2024 5:57 AM COMMUNITY SUPPORT SPECIALIST) Only the most recent of4 resultswithin the time period is included. Pathologist [facility] [place] Antibody Screen NEG 6:49 AM [facility] BLOOD BANK LAB ABO Rh O NEG 07/11/2024 6:49 AM [facility] BLOOD BANK LAB Blood Bank BLOOD SPECIMEN / Unknown Line Draw / Unknown 07/11/2024 5:57 AM COMMUNITY SUPPORT SPECIALIST 07/11/2024 6:01 AM COMMUNITY SUPPORT SPECIALIST Zoe Arevalo APRNHomeLight LAB - BLOOD B ANK ORDERABLES [facility] BLOOD BANK LAB [address] [place] [phone], [facility] [phone] * POTASSIUM WHOLE BLD (07/11/2024 5:57 AM COMMUNITY SUPPORT SPECIALIST) [facility] Potassium Whole Blood 4.2 3.5 - 5.5 mmol/L 07/11/2024 6:14 AM [facility] Blood WHOLE BLOOD SPECIMEN / Unknown Line Draw / Unknown 07/11/2024 5:57 AM COMMUNITY SUPPORT SPECIALIST 07/11/2024 6:04 AM COMMUNITY SUPPORT SPECIALIST Zoe Arevalo APRNedPULSEGUM MACHINE OPERATOR LAB - SYSTEM SOFTWARE PROGRAMMER RY ORDERABLES [facility] [address] [place] [phone], [facility] [phone] * (ABNORMAL) CBC W/O DIFFERENTIAL (06/14/2024 12:37 AM COMMUNITY SUPPORT SPECIALIST) Only the most recent of14 resultswithin the time period is included. Pathologist [facility] [place] WBC 1.5(L) 4.0 - 10.7 x10E9/L 06/14/2024 1:57 AM [facility] RBC Count 2.29(L) 4.30 - 5.80 x10E12/L 06/14/2024 1:57 AM [facility] Hemoglobin 7.3(L) 13.3 - 17.5 g/dL 06/14/2024 1:57 AM [facility] Hematocrit 21.4(L) 38.7 - 51.1 % 06/14/2024 1:57 AM [facility] MCV 93.4 80.0 - 98.0 fL 06/14/2024 1:57 AM [facility] MCH 31.9 26.7 - 33.6 pg 06/14/2024 1:57 AM [facility] MCHC 34.1 31.7 - 36.3 g/dL 06/14/2024 1:57 AM [facility] RDW-CV 17.8(H) 11.3 - 14.8 % 06/14/2024 1:57 AM [facility] Platelet Count 33(L) 150 - 420 x10E9/L 06/14/2024 1:57 AM [facility] MPV 10.7 7.8 - 11.4 fL 06/14/2024 1:57 AM [facility] Blood BLOOD SPECIMEN / Unknown Lab Venipuncture / Unknown 06/14/2024 12:37 AM [facility] 06/14/2024 1:18 AM [facility] Melecio Graves MD LAB - HEMATOLOGY ORD ERABLES [address] [id number], [facility] [facility] [phone] * (ABNORMAL) BASIC METABOLIC PANEL (CALCIUM TOTAL) (06/14/2024 12:37 AM COMMUNITY SUPPORT SPECIALIST) Only the most recent of3 resultswithin the time period is included. BUN 21 7 - 26 mg/dL 06/14/2024 2:18 AM [facility] Creatinine 5.45(H) 0.71 - 1.16 mg/dL 06/14/2024 2:18 AM [facility] Sodium 139 136 - 145 mmol/L 06/14/2024 2:18 AM [facility] Potassium 4.3 3.5 - 4.5 mmol/L 06/14/2024 2:18 AM [facility] Chloride 99 98 - 107 mmol/L 06/14/2024 2:18 AM [facility] CO2 30(H) 22 - 29 mmol/L 06/14/2024 2:18 AM [facility] Glucose 84 70 - 99 mg/dL 06/14/2024 2:18 AM [facility] Calcium 8.1(L) 8.4 - 10.2 mg/dL 06/14/2024 2:18 AM [facility] Anion Gap 10 6 - 16 06/14/2024 2:18 AM [facility] BUN/Creatinine Ratio 4(L) 7 - 23 06/14/2024 2:18 AM [facility] Osmolality Calculated 290 275 - 295 mOsm/kg 06/14/2024 2:18 AM [facility] eGFR by CKD-EPI 11(L) >=90 mL/min/1.7 3 m2 06/14/2024 2:18 AM [facility] Blood BLOOD SPECIMEN / Unknown Lab Venipuncture / Unknown 06/14/2024 12:37 AM COMMUNITY SUPPORT SPECIALIST 06/14/2024 1:19 AM COMMUNITY SUPPORT SPECIALIST Melecio Graves MD LAB - CHEMISTRY ORDGerhard CHAVES [facility] [address] [place] [phone], [facility] [phone] * MAGNESIUM BLOOD (06/14/2024 12:37 AM COMMUNITY SUPPORT SPECIALIST) Only the most recent of14 resultswithin the time period is included. Magnesium 1.8 1.6 - 2.6 mg/dL 06/14/2024 1:49 AM [facility] Blood BLOOD SPECIMEN / Unknown Lab Venipuncture / Unknown 06/14/2024 12:37 AM COMMUNITY SUPPORT SPECIALIST 06/14/2024 1:19 AM COMMUNITY SUPPORT SPECIALIST Melecio Graves MD LAB - CHEMISTRY FREDO CHAVES [facility] [address] [place] [phone], [facility] [phone] * TRANSFUSE RED BLOOD CELL LEUKOREDUCED UNIT(S) (06/13/2024 5:43 PM COMMUNITY SUPPORT SPECIALIST) Melecio Graves MD NURSING - BLOOD PROD TRANSFUSION * (ABNORMAL) HEPATIC FUNCTION PANEL (06/13/2024 8:48 AM COMMUNITY SUPPORT SPECIALIST) Protein Total 5.7(L) 6.0 - 8.3 g/dL 9:48 AM [facility] Albumin 2.3(L) 3.4 - 5.0 g/dL 06/13/2024 9:48 AM [facility] Bilirubin Total 1.5(H) 0.2 - 1.2 mg/dL 06/01 9:48 AM [facility] Bilirubin Conjugated 0.9(H) 0.1 - 0.5 mg/dL 06/13/2024 9:48 AM [facility] Bilirubin Unconjugated 0.6 Unconjugated Bilirubin is a calculated value: Reference ranges have not been established. mg/dL 06/13/2024 9:48 AM [facility] Alkaline Phosphatase 77 40 - 150 U/L 06/13/2024 9:48 AM [facility] ALT 7 5 - 55 U/L 06/13/2024 9:48 AM [facility] AST 27 5 - 34 U/L 06/13/2024 9:48 AM [facility] Albumin/Globulin Ratio 0.7(L) 1.1 - 2.3 06/13/2024 9:48 AM [facility] Blood BLOOD SPECIMEN / Unknown Lab Venipuncture / Unknown 06/13/2024 8:48 AM COMMUNITY SUPPORT SPECIALIST 06/13/2024 9:18 AM COMMUNITY SUPPORT SPECIALIST Melecio Graves MD LAB - CHEMISTRY FREDO CHAVES [facility] Organization Address City/State/ZIP Co de Phone Number [address] [address], [facility] [phone] * FOLATE (06/13/2024 8:48 AM COMMUNITY SUPPORT SPECIALIST) Pathologist [facility] [place] Folate 8.5 7.0 - 31.4 ng/mL 06/13/2024 10:20 AM [facility] Blood BLOOD SPECIMEN / Unknown Lab Venipuncture / Unknown 06/13/2024 8:48 AM COMMUNITY SUPPORT SPECIALIST 06/13/2024 9:18 AM COMMUNITY SUPPORT SPECIALIST Melecio Graves MD LAB - CHEMISTRY FREDO CHAVES Performing Organization Address City/[facility]/ZIP Co de Phone Number [address] [address], [place] [phone] * (ABNORMAL) VITAMIN B12 (06/13/2024 8:48 AM COMMUNITY SUPPORT SPECIALIST) Pathologist [facility] [place] Vitamin B12 1,274(H) 213 - 816 pg/mL 06/13/2024 10:20 AM COMMUNITY SUPPORT SPECIALIST [facility] Blood BLOOD SPECIMEN / Unknown Lab Venipuncture / Unknown 06/13/2024 8:48 AM COMMUNITY SUPPORT SPECIALIST 06/13/2024 9:18 AM COMMUNITY SUPPORT SPECIALIST Melecio Graves MD LAB - CHEMISTRY FREDO CHAVES Performing Organization Address [facility] Co de Phone Number [address] [address], [place] [phone] * (ABNORMAL) PTH INTACT W/O CALCIUM (06/12/2024 1:23 AM COMMUNITY SUPPORT SPECIALIST) Only the most recent of2 resultswithin the time period is included. Pathologist [facility] [place] PTH Intact 407.3(H) 8.0 - 77.0 pg/mL 06/12/2024 2:23 AM COMMUNITY SUPPORT SPECIALIST [facility] Blood BLOOD SPECIMEN / Unknown Lab Venipuncture / Unknown 06/12/2024 1:23 AM COMMUNITY SUPPORT SPECIALIST 06/12/2024 1:42 AM COMMUNITY SUPPORT SPECIALIST Melecio Graves MD LAB - CHEMISTRY FREDO CHAVES Performing Organization Address [facility]/ZIP Co de Phone Number [address] [address], [place] [phone] * (ABNORMAL) IRON + TRANSFERRIN PANEL (06/12/2024 1:23 AM COMMUNITY SUPPORT SPECIALIST) Only the most recent of2 resultswithin the time period is included. Pathologist [facility] [place] Iron 48(L) 50 - 175 ug/dL 06/12/2024 2:20 AM [facility] Transferrin 79(L) 174 - 382 mg/dL 06/12/2024 2:20 AM [facility] Transferrin Saturation % 49 16 - 50 % 06/12/2024 2:20 AM [facility] TIBC Calculated 99(L) 240 - 450 ug/dL 06/12/2024 2:20 AM [facility] Blood BLOOD SPECIMEN / Unknown Lab Venipuncture / Unknown 06/12/2024 1:23 AM COMMUNITY SUPPORT SPECIALIST 06/12/2024 1:42 AM COMMUNITY SUPPORT SPECIALIST Melecio Graves MD LAB - CHEMISTRY FREDO CHAVES Performing Organization Address City/[facility]/ZIP Co de Phone Number [facility] [address] [place] [address], [facility] [phone] * (ABNORMAL) FERRITIN (06/12/2024 1:23 AM COMMUNITY SUPPORT SPECIALIST) Only the most recent of2 resultswithin the time period is included. Ferritin 938(H) 22 - 275 ng/mL 06/12/2024 2:37 AM [facility] Blood BLOOD SPECIMEN / Unknown Lab Venipuncture / Unknown 06/12/2024 1:23 AM COMMUNITY SUPPORT SPECIALIST 06/12/2024 1:42 AM COMMUNITY SUPPORT SPECIALIST Melecio Graves MD LAB - CHEMISTRY FREDO CHAVES Performing Organization Address City/[facility]/ZIP Co de Phone Number [facility] [address] [place] [address], [place] [phone] * EKG 12-LEAD (06/11/2024 7:45 PM COMMUNITY SUPPORT SPECIALIST) Ventricular Rate 59 BPM [facility] MUSE Atrial Rate 59 BPM [facility] MUSE P-R Interval 242 ms [facility] QRS Duration ms 102 ms [facility] MUSE Q-T Interval ms 492 ms [facility]USE QTC Calculation (Bezet) 487 ms [facility] MUSE Calculated P [place] 72 degrees [facility] MUSE Calculated R [place] 62 degrees [facility] MUSE Calculated T [place] 74 degrees [facility] M[facility] Interpretation EKG SINUS BRADYCARDIA WITH 1ST DEGREE A-V BLOCK T WAVE ABNORMALITY, CONSIDER ANTERIOR ISCHEMIA ABNORMAL ECG Confirmed by LEILANI ROJAS MD ([id number]) on 06/13/2024 1:39:21 PM [facility] MUSE 06/11/2024 7:4 5 PM COMMUNITY SUPPORT SPECIALIST 06/13/2024 1:39 PM COMMUNITY SUPPORT SPECIALIST Melecio Graves MD ECG ORDERABLES [facility] MUSE * CT Knee Right Wo Contrast (06/11/2024 5:55 PM COMMUNITY SUPPORT SPECIALIST) Anatomical Region Laterality Modality Lower Extremity Computed Tomogra phy 06/11/2024 6:16 PM COMMUNITY SUPPORT SPECIALIST Impressions 06/12/2024 12:48 AM COMMUNITY SUPPORT SPECIALIST IMPRESSION: 1.There is an osteochondral defect of [...] arthritis. > Dictated by Sandro Bro DO (resident associate). I, Chad Renner MD have personally reviewed and interpreted this examination/study. > Interpreting Provider: Chad Renner MD on 06/12/2024 12:48 AM Narrative 06/12/2024 12:48 AM COMMUNITY SUPPORT SPECIALIST PROCEDURE: CT KNEE RIGHT WO CONTRAST DATE/TIME [...] arthritis. > Dictated by Sandro Bro DO (resident associate). I, Chad Renner MD have personally reviewed and interpreted this examination/study. > Interpreting Provider: Chad Renner MD on 06/12/2024 12:48 AM Minerva Ventura MD CT ORDERABLES * XR Knee Right 3Vw (06/11/2024 3:41 PM COMMUNITY SUPPORT SPECIALIST) Only the most recent of2 resultswithin the time period is included. Anatomical Region Laterality Modality Lower Extremity Digital Radiogra phy 06/11/2024 3:37 PM COMMUNITY SUPPORT SPECIALIST Impressions 06/11/2024 3:56 PM COMMUNITY SUPPORT SPECIALIST IMPRESSION: Increase in size of moderate suprapatellar joint effusion. No acute fracture or dislocation. No radiographic evidence of osteomyelitis. Soft tissue swelling. Report dictated by Zahida Catalan MD, (resident associate). Elzbieta Silva MD have personally reviewed and interpreted this examination/study. > Interpreting Provider: Elzbieta Woodard MD on 06/11/2024 3:56 PM Narrative 06/11/2024 3:56 PM COMMUNITY SUPPORT SPECIALIST PROCEDURE: XR KNEE RIGHT 3VW DATE/TIME OF [...] swelling. Report dictated by Zahida Catalan MD, (resident associate). Elzbieta Silva MD have personally reviewed and interpreted this examination/study. > Interpreting Provider: Elzbieta Woodard MD on 06/11/2024 3:56 PM Hany Whyte MD DIAGNOSTIC IMAGING O RDERABLES * (ABNORMAL) C-REACTIVE PROTEIN (06/11/2024 8:18 AM COMMUNITY SUPPORT SPECIALIST) Only the most recent of2 resultswithin the time period is included. C-Reactive Protein 4.6(H) <=0.5 mg/dL 06/11/2024 8:57 AM COMMUNITY SUPPORT SPECIALIST [facility] Blood BLOOD SPECIMEN / Unknown Venipuncture / Unknown 06/11/2024 8:18 AM COMMUNITY SUPPORT SPECIALIST 06/11/2024 8:25 AM COMMUNITY SUPPORT SPECIALIST Chivo Agudelo MD LAB - CHEMISTRY ORDGerhard CHAVES Performing Organization Address City/[facility]/ZIP Co de Phone Number [address] [address], [facility] [phone] * (ABNORMAL) ERYTHROCYTE SEDIMENTATION RATE (06/11/2024 8:18 AM COMMUNITY SUPPORT SPECIALIST) Only the most recent of2 resultswithin the time period is included. Erythrocyte Sedimentation Rate Westergren 31(H) 0 - 20 MM/HR 06/11/2024 10:12 AM COMMUNITY SUPPORT SPECIALIST [facility] Blood BLOOD SPECIMEN / Unknown Venipuncture / Unknown 06/11/2024 8:18 AM COMMUNITY SUPPORT SPECIALIST 06/11/2024 8:25 AM COMMUNITY SUPPORT SPECIALIST Chivo Agudelo MD LAB - HEMATOLOGY ORD CHARLES Performing Organization Address City/[facility]/ZIP Co de Phone Number [address] [address], [facility] [phone] * PHOSPHORUS BLOOD (06/11/2024 8:18 AM COMMUNITY SUPPORT SPECIALIST) Only the most recent of10 resultswithin the time period is included. Phosphorus 3.7 2.8 - 5.1 mg/dL 06/11/2024 8:57 AM COMMUNITY SUPPORT SPECIALIST [facility] Blood BLOOD SPECIMEN / Unknown Venipuncture / Unknown 06/11/2024 8:18 AM COMMUNITY SUPPORT SPECIALIST 06/11/2024 8:25 AM COMMUNITY SUPPORT SPECIALIST Chivo Agudelo MD LAB - CHEMISTRY ORDGerhard CHAVES [facility] [address] [place] [address], [facility] [phone] * (ABNORMAL) BILIRUBIN DIRECT (05/28/2024 6:51 AM COMMUNITY SUPPORT SPECIALIST) Only the most recent of9 resultswithin the time period is included. Bilirubin Conjugated 0.7(H) 0.1 - 0.5 mg/dL 05/28/2024 7:44 AM COMMUNITY SUPPORT SPECIALIST [facility] Blood BLOOD SPECIMEN / Unknown Lab Venipuncture / Unknown 05/28/2024 6:51 AM COMMUNITY SUPPORT SPECIALIST 05/28/2024 7:09 AM COMMUNITY SUPPORT SPECIALIST Sanjuana Salazar MD LAB - CHEMISTRY FREDO ANASTACIO [address] [address], [facility] [phone] * XR Panorex (05/24/2024 2:12 PM COMMUNITY SUPPORT SPECIALIST) Anatomical Region Laterality Modality Head Radiographic Cindy ging 05/25/2024 8:00 AM COMMUNITY SUPPORT SPECIALIST Impressions 05/25/2024 11:44 PM COMMUNITY SUPPORT SPECIALIST IMPRESSION: Motion artifact degrades image quality, within exam limitations. Consider performing this study again. Nonspecific radiolucency of the right paramedian mandible. Otherwise no evidence of periapical abscess. Report dictated by Judy Muller Dr, MD (resident associate). I, Sonja Sanders MD have personally reviewed and interpreted this examination/study. > Interpreting Provider: Sonja Sanders MD on 05/25/2024 11:44 PM Narrative 05/25/2024 11:44 PM COMMUNITY SUPPORT SPECIALIST PROCEDURE: XR PANOREX, DATE/TIME OF EXAM: 05/24/2024 2:13 PM, LOCATION [facility] INDICATION: M00.861: Arthritis of right knee [...] DATE/TIME OF EXAM: 05/24/2024 2:13 PM, LOCATION [facility] INDICATION: M00.861: Arthritis of right knee [...] Report dictated by Judy Muller Dr, MD (resident associate). I, Sonja Sanders MD have personally reviewed and interpreted this examination/study. > Interpreting Provider: Sonja Sanders MD on 05/25/2024 11:44 PM Uli Murphy MD DIAGNOSTIC IMAGING O RDERABLES * (ABNORMAL) VITAMIN D 25-HYDROXY (05/23/2024 3:23 AM COMMUNITY SUPPORT SPECIALIST) Vitamin D, 25 Hydroxy 16.4(L) 30.0 - 80.0 ng/mL 05/23/2024 8:10 AM COMMUNITY SUPPORT SPECIALIST [facility] Comment: The recommendations for 25-Hydroxy Vitamin [...] Lab Venipuncture / Unknown 05/23/2024 3:23 AM COMMUNITY SUPPORT SPECIALIST 05/23/2024 4:04 AM COMMUNITY SUPPORT SPECIALIST Uli Murphy MD LAB - CHEMISTRY FREDO CHAVES Performing Organization Address City/[facility]/ZIP Co de Phone Number [address] [address], [facility] [phone] * VANCOMYCIN LEVEL RANDOM (05/23/2024 3:23 AM COMMUNITY SUPPORT SPECIALIST) Only the most recent of3 resultswithin the time period is included. [facility] Vancomycin Random 19.8 Therapeutic Ranges not established for random specimens ug/mL 05/23/2024 4:24 AM COMMUNITY SUPPORT SPECIALIST [facility] Blood BLOOD SPECIMEN / Unknown Lab Venipuncture / Unknown 05/23/2024 3:23 AM COMMUNITY SUPPORT SPECIALIST 05/23/2024 3:59 AM COMMUNITY SUPPORT SPECIALIST Narrative [facility] - 05/23/2024 4:24 AM COMMUNITY SUPPORT SPECIALIST See institution protocol. Uli Murphy MD LAB - CHEMISTRY FREDO CHAVES Performing Organization Address [facility] Co de Phone Number [address] [address], [facility] [phone] * CHLAMYDIA + GC AMPLIFIED PROBE (05/22/2024 1:26 PM COMMUNITY SUPPORT SPECIALIST) [facility] Chlamydia Amplified Probe Negative Negative 05/22/2024 8:38 PM COMMUNITY SUPPORT SPECIALIST [facility] GC Amplified Probe Negative Negative 05/22/2024 8:38 PM COMMUNITY SUPPORT SPECIALIST [facility] Microbiology ENTIRE PHARYNX / Unknown Collection / Unknown 05/22/2024 1:26 PM COMMUNITY SUPPORT SPECIALIST 05/22/2024 1:31 PM COMMUNITY SUPPORT SPECIALIST Narrative [facility] - 05/22/2024 8:38 PM COMMUNITY SUPPORT SPECIALIST Results based on detection/no detection of ribosomal RNA by amplified method. Uli Murphy MD LAB - MICROBIOLOGY O RDERABLES Performing Organization Address City/[facility]/ZIP Co de Phone Number [facility] [address] [place] [address], [facility] [phone] * CULTURE BLOOD (05/22/2024 9:38 AM COMMUNITY SUPPORT SPECIALIST) Only the most recent of2 resultswithin the time period is included. Pathologist [facility] [place] Culture No growth day 5 LEANNE 05/27/2024 2:31 PM COMMUNITY SUPPORT SPECIALIST [facility] Blood PERIPHERAL BLOOD / Unknown Lab Venipuncture / Unknown 05/22/2024 9:38 AM COMMUNITY SUPPORT SPECIALIST 05/22/2024 10:03 AM COMMUNITY SUPPORT SPECIALIST Uli Murphy MD LAB - MICROBIOLOGY O RDERABLES Performing Organization Address City/[facility]/ZIP Co de Phone Number [facility] [address] [place] [address], [facility] [phone] * HEPATITIS C AB SCREEN RFLX NAAT QUANT (05/21/2024 2:29 AM COMMUNITY SUPPORT SPECIALIST) Pathologist [facility] [place] Hepatitis C Antibody Non-react jaden Non-reac tive 05/22/2024 8:44 AM COMMUNITY SUPPORT SPECIALIST [facility] Comment:Hepatitis C Antibody screen [...] Lab Venipuncture / Unknown 05/21/2024 2:29 AM COMMUNITY SUPPORT SPECIALIST 05/21/2024 3:08 AM COMMUNITY SUPPORT SPECIALIST Uli Murphy MD LAB - CHEMISTRY ORDE RABRADHA Performing Organization Address City/[facility] Co de Phone Number [facility] [address] [place] [address], [facility] [phone] * SYPHILIS ANTIBODY CASCADING REFLEX (05/21/2024 2:29 AM COMMUNITY SUPPORT SPECIALIST) Treponema pallidum Antibody Non-react jaden Non-react jaden 05/22/2024 8:44 AM COMMUNITY SUPPORT SPECIALIST [facility] Comment: No Laboratory evidence of syphilis infection. Note: Circulating antibodies may be low or undetectable in early infection. If recent exposure is suspected, re-draw sample in 2-4 weeks and repeat testing. Blood BLOOD SPECIMEN / Unknown Lab Venipuncture / Unknown 05/21/2024 2:29 AM COMMUNITY SUPPORT SPECIALIST 05/21/2024 3:08 AM COMMUNITY SUPPORT SPECIALIST Uli Murphy MD LAB - SEROLOGY ORDER MALIHA Performing Organization Address City/[facility]/ZIP Co de Phone Number [address] [address], [place] [phone] * HIV-1 HIV-2 ANTIBODY + HIV P24 AG PANEL (05/21/2024 2:29 AM COMMUNITY SUPPORT SPECIALIST) Pathologist [facility] [place] HIV Antigen/Antibod y 1 & 2 Non-reacti ve Non-react jaden 05/22/2024 8:44 AM COMMUNITY SUPPORT SPECIALIST [facility] Comment:No Laboratory eviden ce of HIV infection. Blood BLOOD SPECIMEN / Unknown Lab Venipuncture / Unknown 05/21/2024 2:29 AM COMMUNITY SUPPORT SPECIALIST 05/21/2024 3:08 AM COMMUNITY SUPPORT SPECIALIST Uli Murphy MD LAB - CHEMISTRY ORDE RABLES Performing Organization Address [facility] Co de Phone Number [address] [address], [place] [phone] * CRYSTAL INDENTIFICATION SYNOVIAL FLUID (05/20/2024 6:41 PM COMMUNITY SUPPORT SPECIALIST) Pathologist [facility] [place] Crystal Exam Fluid To be performed by Pathology. See Path Review. 05/21/2024 8:16 AM COMMUNITY SUPPORT SPECIALIST [facility] Fluid SYNOVIAL FLUID / Unknown Collection / Unknown 05/20/2024 6:41 PM COMMUNITY SUPPORT SPECIALIST 05/21/2024 8:13 AM COMMUNITY SUPPORT SPECIALIST Gerardo Álvarez MD LAB - BODY FLUID ORD ERABLES Performing Organization Address [facility]/ZIP Co de Phone Number [address] [address], [place] [phone] * PATHOLOGY SMEAR BODY FLUID (05/20/2024 6:41 PM COMMUNITY SUPPORT SPECIALIST) Only the most recent of2 resultswithin the time period is included. Path Review Fluid Confirmed 05/22/2024 4:04 PM COMMUNITY SUPPORT SPECIALIST [facility] Fluid SYNOVIAL FLUID / Unknown Collection / Unknown 05/20/2024 6:41 PM COMMUNITY SUPPORT SPECIALIST 05/21/2024 8:13 AM COMMUNITY SUPPORT SPECIALIST Narrative [facility] - 05/22/2024 4:04 PM COMMUNITY SUPPORT SPECIALIST No intracellular crystals seen. Gerardo Álvarez MD LAB - PATHOLOGY/CYTO LOGY ORDERABLES [facility] [address] [place] [address], [facility] [phone] * CULTURE WOUND+GRAM STAIN (05/20/2024 6:41 PM COMMUNITY SUPPORT SPECIALIST) Culture No growth LEANNE 05/23/2024 5:56 AM COMMUNITY SUPPORT SPECIALIST [facility] Gram Stain Moderate Polymorphonuclear cells 05/23/2024 5:56 AM COMMUNITY SUPPORT SPECIALIST [facility] Gram Stain Moderate Red blood cells 05/23/2024 5:56 AM COMMUNITY SUPPORT SPECIALIST [facility] Gram Stain No organisms seen 024 5:56 AM COMMUNITY SUPPORT SPECIALIST [facility] Microbiology ENTIRE KNEE REGION / Unknown Collection / Unknown 05/20/2024 6:41 PM COMMUNITY SUPPORT SPECIALIST 05/20/2024 6:49 PM COMMUNITY SUPPORT SPECIALIST Gerardo Álvarez MD LAB - MICROBIOLOGY O MEREDITH Performing Organization Address [facility] Co de Phone Number [facility] [address] [place] [address], [facility] [phone] * (ABNORMAL) CULTURE ANAEROBE (05/20/2024 6:41 PM COMMUNITY SUPPORT SPECIALIST) Only the most recent of2 resultswithin the time period is included. Culture Light Gemella species(A) LEANNE 05/25/2024 12:32 PM COMMUNITY SUPPORT SPECIALIST [facility] Microbiology ENTIRE KNEE REGION / Unknown Collection / Unknown 05/20/2024 6:41 PM COMMUNITY SUPPORT SPECIALIST 05/20/2024 6:50 PM COMMUNITY SUPPORT SPECIALIST Gerardo Álvarez MD LAB - MICROBIOLOGY O MEREDITH Performing Organization Address City/[facility]/ZIP Co de Phone Number [facility] [address] [place] [address], [facility] [phone] * ETT LINE PERFORMABLE (05/20/2024 6:24 PM COMMUNITY SUPPORT SPECIALIST) Narrative Kiko Garner Anes Asst - 05/20/2024 6:24 PM COMMUNITY SUPPORT SPECIALIST Kiko Garner Anes Asst 05/20/2024 6:27 PM Endotracheal Tube Placement: Patient Location: OR. Intubation Event Date/Time: 05/20/2024 6:10 PM Procedure: intubation (76109) Procedure Section: Sedation: under general anesthesia. Indications [...] Anes Asst, Performed the procedure. Provider #2: Molding Plasterer, Student Anesthesiology Molding Plasterer Student Anesthesiology, Performed the procedure. Additional Comments: Atraumatic supervised intubation performed by Ramandeep Lawton, Student Anesthesiologist Molding Plasterer.. Nickolas Donahue MD GENERAL ANESTHESIA O RDERABLES * TRANSFUSE PLATELET PHERESIS UNIT(S) (05/20/2024 3:17 AM COMMUNITY SUPPORT SPECIALIST) Sanjuana Salazar MD NURSING - BLOOD PROD TRANSFUSION * (ABNORMAL) URIC ACID BLOOD (05/19/2024 11:55 PM COMMUNITY SUPPORT SPECIALIST) Uric Acid 7.6(H) 3.5 - 7.2 mg/dL 05/20/2024 12:23 AM COMMUNITY SUPPORT SPECIALIST [facility] Blood BLOOD SPECIMEN / Unknown Venipuncture / Unknown 05/19/2024 11:55 PM COMMUNITY SUPPORT SPECIALIST 05/19/2024 11:58 PM COMMUNITY SUPPORT SPECIALIST Sanjuana Salazar MD LAB - CHEMISTRY FREDO CHAVES Performing Organization Address City/[facility]/ZIP Co de Phone Number [facility] [address] [place] [address], [facility] [phone] * CULTURE FUNGUS OTHER+FUNGUS SMEAR (05/19/2024 7:42 PM COMMUNITY SUPPORT SPECIALIST) Culture No fungus isolated LEANNE 06/14/2024 2:51 PM COMMUNITY SUPPORT SPECIALIST [facility] Fungus Stain No yeast or hyphae seen 06/14/2024 2:51 PM COMMUNITY SUPPORT SPECIALIST [facility] Microbiology SYNOVIAL FLUID / Unknown Collection / Unknown 05/19/2024 7:42 PM COMMUNITY SUPPORT SPECIALIST 05/19/2024 7:42 PM COMMUNITY SUPPORT SPECIALIST Sanjuana Salazar MD LAB - MICROBIOLOGY O RDERABLES Performing Organization Address [facility]/ZIP Co de Phone Number [facility] [address] [place] [address], [facility] [facility] [phone] * DIFFERENTIAL MANUAL FLUID (05/19/2024 7:42 PM COMMUNITY SUPPORT SPECIALIST) Fluid Source Synovial 05/19/2024 9:14 PM COMMUNITY SUPPORT SPECIALIST [facility] Body Fluid Total Cell Count 100 x10E6/L 05/19/2024 9:14 PM COMMUNITY SUPPORT SPECIALIST [facility] Neutrophils Fluid Percent 97 % 05/19/2024 9:14 PM [facility] Lymphocytes Fluid Percent 2 % 05/19/2024 9:14 PM COMMUNITY SUPPORT SPECIALIST [facility] Macrophages Fluid Percent 1 % 05/19/2024 9:14 PM COMMUNITY SUPPORT SPECIALIST [facility] Fluid SYNOVIAL FLUID / Unknown Collection / Unknown 05/19/2024 7:42 PM COMMUNITY SUPPORT SPECIALIST 05/19/2024 7:42 PM COMMUNITY SUPPORT SPECIALIST Narrative [facility] - 05/19/2024 9:14 PM COMMUNITY SUPPORT SPECIALIST No reference ranges established for body fluid differential cell counts. The test results must be integrated into the clinical context for interpretation. Sanjuana Salazar MD LAB - BODY FLUID ORD ERABLES Performing Organization Address [facility]/ZIP Co de Phone Number [facility] [address] [place] [address], [place] [phone] * CULTURE FLUID+GRAM STAIN (05/19/2024 7:42 PM COMMUNITY SUPPORT SPECIALIST) Culture No growth LEANNE 05/23/2024 5:56 AM COMMUNITY SUPPORT SPECIALIST [facility]CRO[facility] Gram Stain Light Polymorphonuclear cells 05/23/2024 5:56 AM COMMUNITY SUPPORT SPECIALIST [facility] Gram Stain No organisms seen 024 5:56 AM [facility]CRO[facility] Other SYNOVIAL FLUID / Unknown Collection / Unknown 05/19/2024 7:42 PM COMMUNITY SUPPORT SPECIALIST 05/19/2024 7:42 PM COMMUNITY SUPPORT SPECIALIST Sanjuana Salazar MD LAB - MICROBIOLOGY O RDERABLES Performing Organization Address City/[facility]/ZIP Co de Phone Number [facility]CRO[facility] [address] [place] [address], [facility] [phone] * (ABNORMAL) CELL COUNT W DIFFERENTIAL FLUID (05/19/2024 7:42 PM COMMUNITY SUPPORT SPECIALIST) Fluid Source Synovial 05/19/2024 9:14 PM COMMUNITY SUPPORT SPECIALIST [facility] Fluid Appearance TURBID 05/19/2024 9:14 PM [facility] Fluid Color ORANGE 05/19/2024 9:14 PM [facility] Total Nucleated Cells Fluid 56,010(H) <=200 x10E6/L 05/19/2024 9:14 PM [facility] RBC Count Fluid 40,000 Reference Range Not Established x10E6/L 05/19/2024 9:14 PM [facility] Fluid SYNOVIAL FLUID / Unknown Collection / Unknown 05/19/2024 7:42 PM COMMUNITY SUPPORT SPECIALIST 05/19/2024 7:42 PM COMMUNITY SUPPORT SPECIALIST Narrative [facility] - 05/19/2024 9:14 PM COMMUNITY SUPPORT SPECIALIST No reference ranges established for body fluid cell counts. Any reference ranges provided are derived from published literature. The test results must be integrated into the clinical context for interpretation. Sanjuana Salazar MD LAB - BODY FLUID ORD ERABLES [facility] [address] [place] [address], [place] [phone] * TRANSFUSE PLATELET PHERESIS UNIT(S) (05/19/2024 5:26 PM COMMUNITY SUPPORT SPECIALIST) John Gutiérrez DO NURSING - BLOOD PROD TRANSFUSION * (ABNORMAL) LIPID PROFILE (12/25/2023 8:13 AM CDT) Cholesterol Total 104 <200 mg/dL 12/25/2023 9:18 AM CDT [facility] HDL 37(L) >40 mg/dL 12/25/2023 9:18 AM CDT [facility] Comment: ATP III Classification of HDL Cholesterol: <40 mg/dL: Considered a major risk factor. >60 mg/dL: Considered a negative risk factor. LDL Calculated 56 <100 mg/dL 12/25/2023 9:18 AM T [facility] Comment: ATP III Classification of LDL Cholesterol: <100 mg/dL: Optimal 100 - 129 mg/dL: Near Optimal/Above Optimal 130 - 159 mg/dL: Borderline High 160 - 189 mg/dL: High >190 mg/dL: Very High Triglycerides 57 <150 mg/dL 12/25/2023 9:18 AM T [facility] Comment: ATP III Classification of Triglycerides: <150 mg/dL: Normal 150 - 199 mg/dL: Borderline High 200 - 400 mg/dL: High >500 mg/dL: Very High Blood BLOOD SPECIMEN / Unknown Lab Venipuncture / Unknown 12/25/2023 8:13 AM CDT 12/25/2023 8:37 AM CDT Eugenie Dsouza INTERVENTIONAL NEURORADIOLOGIST-GUM MACHINE OPERATOR LAB - CHEMI STRY ORDERABLES Performing Organization Address City/State/[facility] Co de Phone Number [facility] [address] [place] [address], [facility] [phone] * ENDOSCOPY, COLON, DIAGNOSTIC (01/12/2020 3:38 PM [...] entire procedure. 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 All rights reserved. The codes documented in this report are preliminary and upon medical records tech review may be revised to meet current compliance requirements. _ Connor Virgen, 01/12/2020 4:25:45 PM Note Initiated On: 01/12/2020 3:38 PM Number of Addenda: 0 [facility] [address] [facility] [place] [address] [facility] 01/12/2020 3:38 PM CDT Connor Chavez MD GI PROCEDURE ORDERABLES [facility] from Last 3 Months or Most Recently Relevant to Health Maintenance Advance Directives Documents on File Type Date Recorded Patient Fire Inspector Expl anation Adv Directive/Living Will/POA 06/05/2019 * [...] 10:59 PM 07/20/2021 2:28 PM Care Teams Pick Up Worker Relationship Specialty Start Date End Date Efren Ramirez DO [address] [place] [address] PCP - General Internal Medicine 06/12/24
--- OUTSIDE RECORDS SUMMARY | 2024-08-12 09:32 | XMS_ITS | Encounter Summary ---
Author Organization [facility] Health Address [address] [place] [address] Care Team Providers Care Cupola Tender Helper Name Role Phone Dm Pena MD Primary Care Provider [phone] Efren Ramirez DO Primary Care Provider [phone] Encounter Details Date Type Department Care Team (Late st Contact Info) Description 07/15/2019 Pre-evaluation Visit [facility] PT [address] [place] [id number] Allie Noland, PT Social History Tobacco Use [...] st Contact Info) Description 08/14/2024 10:45 AM VP INFORMATICS Office Visit [facility] - Orthopedics [address] [place] [address], [place] [address] Yaima Dobbins MD [address] [place] [address] [place] [address] documented as of this encounter Visit Diagnoses Not on filedocumented in this encounter Additional Health Concerns Infection Onset Date Last Indicated Resolved Time COVID-19 Under Investigation 09/20/2020 09/20/2020 09/20/2020 10:10 PM CDT COVID-19 Under Investigation 07/19/2021 07/19/2021 07/19/2021 1:09 PM VP INFORMATICS COVID-19 Confirmed 07/19/2021 07/19/2021 4:33 AM VP INFORMATICS COVID-19 Under Investigation 10/29/2023 10/29/2023 10/29/2023 9:28 AM CDT documented as of this encounter Care Teams Cupola Tender Helper Relationship Specialty Start Date End Date Dm Pena MD [address] [address] PCP - General Family Medicine 02/06/19 06/11/24 Efren Ramirez DO [address] [place] [address] PCP - General Internal Medicine 06/12/24 documented as of this encounter
--- OUTSIDE RECORDS SUMMARY | 2024-08-12 09:32 | XMS_ITS | Referral Summary ---
Author Organization [facility] Health Address [address] [place] [address] Care Team Providers Care Wine Master Name Role Phone Efren Ramirez DO Primary Care Provider Source Comments [facility],non-owned Affiliates and Associated Physician Practices is amultiple site organization consisting of ambulatory clinics and hospital sitesin [place], [place], [place]. This disclosure is being madepursuant to the Care Everywhere program and may not contain all information available regarding this patient. Last updated 18.[facility] Encounters Date Type Department Care Team Description 08/07/2024 Telephone [facility] - Pulmonology [address] [place] [address] Yaima Dobbins MD 08/05/2024 Travel 08/05/2024 8:40 PM DOOR LINER HELPER - 08/05/2024 8:52 PM DOOR LINER HELPER Emergency [facility] [address] [place] [phone] Discharge Disposition: Left Against Medical Advice/Discontinued Care 08/05/2024 10:00 AM DOOR LINER HELPER Clinical Support [facility] 3L [address] [facility] [place] [phone] Unknown, Provider S/P hernia repair 07/24/2024 Travel 07/24/2024 7:05 AM DOOR LINER HELPER - 07/24/2024 11:59 PM DOOR LINER HELPER Hospital Encounter [facility] [address] [place] [address] Discharge Disposition: Home or Self Care 07/22/2024 Telephone [facility] - GI [address] [facility] [place] [address] Jackson Melvin MD Physical Therapy 07/11/2024 Travel 07/11/2024 7:05 AM DOOR LINER HELPER - 07/11/2024 9:28 AM DOOR LINER HELPER Surgery [facility] [address] [place] [address] Theron Medellin MD Open right inguinal hernia repair with mesh 07/11/2024 7:29 AM DOOR LINER HELPER Anesthesia Event [facility] [address] [place] [address] Pawan Lynn DO Keeven, Grace C, HYDRAULIC RIVETER-ONSITE HEALTH COACH 07/11/2024 5:06 AM DOOR LINER HELPER - 07/11/2024 12:42 PM DOOR LINER HELPER Hospital Encounter [facility] [address] [place] [address] Theron Medellin MD Surgery General Discharge Disposition: Home or Self Care 07/08/2024 12:50 PM DOOR LINER HELPER - 07/08/2024 11:59 PM DOOR LINER HELPER Hospital Encounter [facility] [address] [place] [address] Unknown, Provider Discharge Disposition: Home or Self Care 07/08/2024 12:12 PM DOOR LINER HELPER - 07/08/2024 12:49 PM DOOR LINER HELPER Hospital Encounter [facility] [address] [place] [address] Unknown, Provider Theron Medellin MD Discharge Disposition: Home or Self Care 07/08/2024 Travel 07/08/2024 11:00 AM DOOR LINER HELPER Office Visit [facility]L [address] [place] [address] Unknown, Provider Inguinal hernia of right side without obstruction or gangrene (Primary Dx); Alcoholic cirrhosis of liver without ascites (HCC); Pre-op evaluation 07/07/2024 Travel 06/26/2024 Travel 06/26/2024 7:10 AM DOOR LINER HELPER - 06/26/2024 11:59 PM DOOR LINER HELPER Hospital Encounter [facility] [address] [place] [address] Unknown, Provider Discharge Disposition: Home or Self Care 06/18/2024 Telephone [facility] - GI [address] [place] [phone] Melecio Graves MD Future Appointment (Called pt and left vm about setting up an appt with Dr. Graves for this Sunday, 06/20.) 06/18/2024 Telephone [facility] - GI [address] [place] [phone] Melecio Graves MD Appointment 06/18/2024 7:40 AM DOOR LINER HELPER - 06/18/2024 11:59 PM DOOR LINER HELPER Hospital Encounter [facility] [address] [place] [address] Melecio Graves MD Discharge Disposition: Home or Self Care 06/17/2024 Travel 06/17/2024 Telephone Transitional Care at [address] [address] Carolyn Guzman, tire room supervisor 06/16/2024 Telephone Transitional Care at [address] [address] Melissa Leonard, tire room supervisor 06/11/2024 1:36 PM DOOR LINER HELPER - 06/14/2024 11:00 AM DOOR LINER HELPER Hospital Encounter [facility] [address] [place] [address] Sandro Davis MD Ishiyama, Takaaki, MD Qureshi, Kamran, MD Emergency Medicine Discharge Disposition: Home or Self Care 06/11/2024 Travel 06/06/2024 Telephone [facility] - [address] [address] Roman Mario, RN Follow-up 06/05/2024 Orders Only [facility] - GI [address] [place] [address] Melecio Graves MD 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) 06/05/2024 Telephone [facility] [address]L [address] [place] [phone] Julian Campbell, RN Refill Request 06/04/2024 Telephone [facility] - Nephrology [address] [place] [phone] Melecio Graves MD Coordination Of Care 06/02/2024 Orders Only [facility] - GI [address] [place] [phone] Melecio Graves MD 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 ([facility]) 05/30/2024 Transitional Care [facility] [address] [place] [address] Hermelinda Valadez, DIVINE Transitions Of Care 05/30/2024 Transitional Care [facility] [address] [place] [address] Hermelinda Valadez, DIVINE Transitions Of Care 05/19/2024 12:15 PM DOOR LINER HELPER - 05/28/2024 3:42 PM DOOR LINER HELPER Hospital Encounter [facility] 6N ACUTE [address] [place] [address] John Gutiérrez DO Kiwan, Wissam, MD Agbim, Uchenna A, MD SynJackson MD Gastroenterology Discharge Disposition: Home or Self Care 05/20/2024 6:07 PM DOOR LINER HELPER Anesthesia Event [facility] [address] [place] [address] Nickolas Donahue MD Garcia, Alec, MD 05/20/2024 6:03 PM DOOR LINER HELPER - 05/20/2024 7:27 PM DOOR LINER HELPER Surgery [facility] [address] [place] [address] Gerardo Álavrez MD IRRIGATION/DEBRIDEMENT LEG/KNEE 05/19/2024 Travel 05/16/2024 Telephone [facility] - GI [address] [place] [phone] Melecio Graves MD Medication Request 05/13/2024 Travel 05/13/2024 10:45 AM DOOR LINER HELPER Office Visit [facility]L [address] [place] [phone] Therno Medellin MD Right inguinal hernia (Primary Dx) [...] 80 PTH Intact 546.1 (H) 12/07/22 13:03 Mjigt-5-Wxyuojwriyq 119 Hdpmt-8-Jarjdjbfsfo Phenotype M1S Ceruloplasmin 25 Osmolality Calculated 301 [...] 04/26/23 09:45 04/26/23 09:46 dsDNA Antibody 15 Fofana/DELIVERY CREW WORKER Antibodies 2 Fofana (FRANCESCA) Antibody 6 Complement [...] is the impression of this social media content manager that Jj Cuello has several positive factors for Liver/Kidney transplant candidacy including knowledge of illness, sufficient insurance coverage, stable financial situation for post transplant needs, adequate support system, and appropriate discharge plan. Pt has committed to lifelong abstinence and will maintain alcohol free household RP/Provider impression scanned to file Court docs scanned to file Provider impression charted 11/20 Plan: optical worker to provide supportive services as needed. Patient appears to be a reasonable candidate for transplant from a psychosocial perspective. Post transplant arrangement forms are needed prior to being listed. Psychiatric Consult Recommended: no Transplant Roads Supervisor: Tala Villalta LCSW Liver Transplant Education 12/07/2022 Linh Forde, research manufacturing operatorResearch Executive ENT 11/29/22 - +chew tobacco Findings: -No [...] committee and are final. Amelia Corral MD storm sash maker Transplant Surgery [facility] Transplant Surgery Consultation 01/21/24 Dr. Corral - need note Transplant Nephrology Consultation 01/29/23 I consider the patient an excellent candidate for a simultaneous Liver-Kidney Transplantation. The patient needs ECHO of heart due to a grade 2-3/6 systolic murmur all over the anterior precordium radiating to carotids and anterior Lt axillary line. Also check Anti-DS-DNA Ab, Anti-Fofana Ab, Anti-DELIVERY CREW WORKER Ab, C3, C4, CH50, Lupus anticoagulants titer. - Return to Clinic as needed. - Discussed health maintenance, including regular aerobic exercise, low fat, low salt diet, and periodic exams. Sameera Fitzgerald MD Renal Attending Transplant Nephrology Consultation 01/21/24 Dr. Fitzgerald Verified will qualify for [facility] - need note Neurology Consultation - hx seizures 04/26/23 Assessment/Plan: jJ Cuello is a 57 year old male [...] 06/11/2024 Immunizations Name Administration Dates Next Due [facility] [employer] [place] PRIMARY 18+YR 09/16/2020 FLU VACCINE TRI IIV3 [...] and heating? Not hard at all 06/12/2024 [facility] of Occupat ional Health - Occupational Stress [...] any time in the past 12 m [facility], were you homeless or living in a custodial (including now)? No 06/12/2024 Sex and Gender Information Value Date Recorded Sex Assigned at Not on file Gender Identity Not on file Sexual Orientation Not on file Last Filed Vital Signs Vital Sign Reading Time Taken Comments Blood Pressure 129/57 08/05/2024 12:50 PM DOOR LINER HELPER Pulse 56 08/05/2024 12:50 PM DOOR LINER HELPER Temperature 36.5 C (97.7 F) 08/05/2024 12:50 PM DOOR LINER HELPER Respiratory Rate 14 08/05/2024 12:50 PM DOOR LINER HELPER Oxygen Saturation 100% 08/05/2024 12:50 PM DOOR LINER HELPER Inhaled Oxygen Concentration 30% 10/31/2023 5 :04 PM CDT Weight 77.1 kg (170 lb) 08/05/2024 12:50 PM DOOR LINER HELPER Height 177.8 cm (5' 10 ) 08/05/2024 12:50 PM DOOR LINER HELPER Body Mass Index 24.39 08/05/2024 12:50 PM DOOR LINER HELPER Functional Status Functional Status Response Date of [...] st Contact Info) Description 08/14/2024 10:45 AM DOOR LINER HELPER Office Visit [facility] - Orthopedics [address] [place] [address], [place] [address] Yaima Dobbins MD [address] [place] [address] [place] [address] Goals Goal Patient Goal Type Associated Problems [...] last dose Medical Devices Implanted Type Area Data Review Specialist Device Identifier Shelf Expiration Date Model / Serial / Lot Kit Durathane Drflw Embosafe Chrnc Dlys Implanted:Qty: 1 on 03/07/2019 by Trav Merrill MD at [facility] Right: Chest [employer] 03/31/2021 [id number] / / [id number] Graft Vasc 6mm 40cm Ptfe Flixene Sldr - [id number] Implanted:Qty: 1 on 02/21/2022 by Kiko Pena MD at [facility] Left: Arterial Maquet 07/20/2023 [id number] / [id number] / Mesh Srg Parietex Progrip 14x9cm Slf Implanted:Qty: 1 on 07/11/2024 by Theron Medellin MD at [facility] Right: Inguinal Covidien [id number] 08/29/2028 [id number] / / [id number] Procedures Procedure Name Priority Date/Time Associated Diagnosis Comments COMPREHENSIVE METABOLIC PANEL STAT 08/05/2024 2:28 PM DOOR LINER HELPER GLUCOSE - POINT OF CARE Routine 08/05/2024 2:27 PM DOOR LINER HELPER DIFFERENTIAL MANUAL Routine 07/24/2024 7 :38 AM DOOR LINER HELPER Pre-liver transplant, listed Pre-kidney transplant, listed Alcoholic cirrhosis of liver with ascites (HCC) ESRD on dialysis (HCC) Stage 5 chronic kidney disease (HCC) MPGN (membranoprolifer ative glomerulonephriti sahil) PT-INR [facility] Routine 07/24/2024 7:38 AM DOOR LINER HELPER Pre-liver transplant, listed Pre-kidney transplant, listed Alcoholic cirrhosis of liver with ascites (HCC) ESRD on dialysis (HCC) Stage 5 chronic kidney disease (HCC) MPGN (membranoprolifer ative glomerulonephriti sahil) CBC W AUTO DIFFERENTIAL Routine 07/24/2024 7:38 AM DOOR LINER HELPER Pre-liver transplant, listed Pre-kidney transplant, listed Alcoholic cirrhosis of liver with ascites (HCC) ESRD on dialysis (HCC) Stage 5 chronic kidney disease (HCC) MPGN (membranoprolifer ative glomerulonephriti sahil) COMPREHENSIVE METABOLIC PANEL Routine 07/24/2024 7:38 AM DOOR LINER HELPER Pre-liver transplant, listed Pre-kidney transplant, listed Alcoholic cirrhosis of liver with ascites (HCC) ESRD on dialysis (HCC) Stage 5 chronic kidney disease (HCC) MPGN (membranoprolifer ative glomerulonephriti sahil) APHERESIS/TRANSFUSION ORDER 07/14/2024 1:38 PM DOOR LINER HELPER PREPARE RBC LEUKOREDUCED UNIT Routine 07/12/2024 1:17 AM DOOR LINER HELPER ESRD (end stage renal disease) on dialysis (HCC) Hepatic cirrhosis, unspecified hepatic cirrhosis type, unspecified whether ascites present (HCC) PATHOLOGY TISSUE Routine 07/11/2024 8:43 AM DOOR LINER HELPER Inguinal hernia without obstruction or gangrene, recurrence not specified, unspecified laterality ENDOTRACHEAL TUBE NOTE Routine 7:55 AM DOOR LINER HELPER TRANSFUSE PLATELET PHERESIS UNIT(S) Routine 07/11/2024 7:14 AM DOOR LINER HELPER [place] RPR 1ST INGUN HRNA AGE 5 YRS/> REDUCIBLE 07/11/2024 7:04 AM DOOR LINER HELPER Inguinal hernia without obstruction or gangrene, recurrence not specified, unspecified laterality Case Notes KW 07/10 Special Needs Supine PREPARE PLATELET PHERESIS UNIT(S) Routine 07/11/2024 6:54 AM DOOR LINER HELPER ESRD (end stage renal disease) on dialysis (HCC) Hepatic cirrhosis, unspecified hepatic cirrhosis type, unspecified whether ascites present (HCC) TYPE + SCREEN PANEL STAT 07/11/2024 5 :57 AM DOOR LINER HELPER Pre-op evaluation POTASSIUM WHOLE BLD STAT 07/11/2024 5 :57 AM DOOR LINER HELPER Pre-op evaluation TYPE + SCREEN PANEL STAT 07/08/2024 12:56 PM DOOR LINER HELPER Pre-op evaluation PT-INR [facility] Routine 07/08/2024 12:56 PM DOOR LINER HELPER Inguinal hernia of right side without obstruction or gangrene Alcoholic cirrhosis of liver without ascites (HCC) Pre-op evaluation CBC W AUTO DIFFERENTIAL Routine 07/08/2024 12:56 PM DOOR LINER HELPER Inguinal hernia of right side without obstruction or gangrene Alcoholic cirrhosis of liver without ascites (HCC) Pre-op evaluation COMPREHENSIVE METABOLIC PANEL Routine 07/08/2024 12:56 PM DOOR LINER HELPER Inguinal hernia of right side without obstruction or gangrene Alcoholic cirrhosis of liver without ascites (HCC) Pre-op evaluation PT-INR [facility] Routine 06/26/2024 7:12 AM DOOR LINER HELPER Pre-liver transplant, listed Pre-kidney transplant, listed Alcoholic cirrhosis of liver with ascites (HCC) ESRD on dialysis (HCC) Stage 5 chronic kidney disease (HCC) MPGN (membranoprolifer ative glomerulonephriti sahil) CBC W AUTO DIFFERENTIAL Routine 06/26/2024 7:12 AM DOOR LINER HELPER Pre-liver transplant, listed Pre-kidney transplant, listed Alcoholic cirrhosis of liver with ascites (HCC) ESRD on dialysis (HCC) Stage 5 chronic kidney disease (HCC) MPGN (membranoprolifer ative glomerulonephriti sahil) COMPREHENSIVE METABOLIC PANEL Routine 06/26/2024 7:12 AM DOOR LINER HELPER Pre-liver transplant, listed Pre-kidney transplant, listed Alcoholic cirrhosis of liver with ascites (HCC) ESRD on dialysis (HCC) Stage 5 chronic kidney disease (HCC) MPGN (membranoprolifer ative glomerulonephriti sahil) CBC W AUTO DIFFERENTIAL Routine 06/18/2024 8:18 AM DOOR LINER HELPER Acute pain of right knee PT-INR [facility] Routine 06/18/2024 8:18 AM DOOR LINER HELPER Pre-liver transplant, listed Pre-kidney transplant, listed Alcoholic cirrhosis of liver with ascites (HCC) ESRD on dialysis (HCC) Stage 5 chronic kidney disease (HCC) MPGN (membranoprolifer ative glomerulonephriti sahil) COMPREHENSIVE METABOLIC PANEL Routine 06/18/2024 8:18 AM DOOR LINER HELPER Pre-liver transplant, listed Pre-kidney transplant, listed Alcoholic cirrhosis of liver with ascites (HCC) ESRD on dialysis (HCC) Stage 5 chronic kidney disease (HCC) MPGN (membranoprolifer ative glomerulonephriti sahil) PT-INR [facility] AM Draw 06/14/2024 12:37 AM DOOR LINER HELPER MAGNESIUM BLOOD AM Draw 06/14/2024 12:37 AM DOOR LINER HELPER CBC W/O DIFFERENTIAL AM Draw 06/14/2024 12:37 AM DOOR LINER HELPER BASIC METABOLIC PANEL (CALCIUM TOTAL) AM Draw 06/14/2024 12:37 AM DOOR LINER HELPER TRANSFUSE RED BLOOD CELL LEUKOREDUCED UNIT(S) Routine 06/13/2024 11:23 AM DOOR LINER HELPER PREPARE RBC LEUKOREDUCED UNIT PENDING DISCHARGE 06/13/2024 11:00 AM DOOR LINER HELPER VITAMIN B12 Routine 06/13/2024 8:48 AM DOOR LINER HELPER FOLATE Routine 06/13/2024 8:48 AM DOOR LINER HELPER HEPATIC FUNCTION PANEL Routine 8:48 AM DOOR LINER HELPER DIFFERENTIAL MANUAL Routine 06/13/2024 12:56 AM DOOR LINER HELPER CBC W AUTO DIFFERENTIAL Routine 06/13/2024 12:56 AM DOOR LINER HELPER PT-INR [facility] AM Draw 06/13/2024 12:56 AM DOOR LINER HELPER MAGNESIUM BLOOD AM Draw 06/13/2024 12:56 AM DOOR LINER HELPER CBC W/O DIFFERENTIAL AM Draw 06/13/2024 12:56 AM DOOR LINER HELPER BASIC METABOLIC PANEL (CALCIUM TOTAL) AM Draw 06/13/2024 12:56 AM DOOR LINER HELPER HEMODIALYSIS INPATIENT Routine 4:05 PM DOOR LINER HELPER TYPE + SCREEN PANEL Routine 06/12/2024 1 :23 AM DOOR LINER HELPER DIFFERENTIAL MANUAL Add on 06/12/2024 1 :23 AM DOOR LINER HELPER IRON + TRANSFERRIN PANEL Routine 06/12/2024 1:23 AM DOOR LINER HELPER FERRITIN Routine 06/12/2024 1:23 AM DOOR LINER HELPER PTH INTACT W/O CALCIUM AM Draw 1:23 AM DOOR LINER HELPER PT-INR [facility] AM Draw 06/12/2024 1:23 AM DOOR LINER HELPER MAGNESIUM BLOOD AM Draw 06/12/2024 1:23 AM DOOR LINER HELPER CBC W/O DIFFERENTIAL AM Draw 06/12/2024 1:23 AM DOOR LINER HELPER BASIC METABOLIC PANEL (CALCIUM TOTAL) AM Draw 06/12/2024 1:23 AM DOOR LINER HELPER EKG 12-LEAD STAT 06/11/2024 7:45 PM DOOR LINER HELPER Acute pain of right knee ESRD (end stage renal disease) (HCC) Hepatic cirrhosis, unspecified hepatic cirrhosis type, unspecified whether ascites present (HCC) Hyperkalemia COMPREHENSIVE METABOLIC PANEL STAT 06/11/2024 6:[address] KNEE RIGHT WO CONTRAST STAT 06/11/2024 5:55 PM DOOR LINER HELPER Acute pain of right knee XR KNEE RIGHT 3VW STAT 06/11/2024 3:4 1 PM DOOR LINER HELPER Acute pain of right knee C-REACTIVE PROTEIN JOSUÉ 06/11/2024 8: 18 AM DOOR LINER HELPER ERYTHROCYTE SEDIMENTATION RATE STAT 06/11/2024 8:18 AM DOOR LINER HELPER PHOSPHORUS BLOOD STAT 06/11/2024 8:18 AM DOOR LINER HELPER MAGNESIUM BLOOD STAT 06/11/2024 8:18 AM DOOR LINER HELPER COMPREHENSIVE METABOLIC PANEL STAT 06/11/2024 8:18 AM DOOR LINER HELPER CBC W AUTO DIFFERENTIAL STAT 06/11/2024 8:18 AM DOOR LINER HELPER COMPREHENSIVE METABOLIC PANEL Routine 05/28/2024 6:51 AM DOOR LINER HELPER ESRD (end stage renal disease) on dialysis (HCC) Alcoholic cirrhosis of liver without ascites (HCC) PT-INR [facility] Routine 05/28/2024 6:51 AM DOOR LINER HELPER ESRD (end stage renal disease) on dialysis (HCC) Alcoholic cirrhosis of liver without ascites (HCC) BILIRUBIN DIRECT Routine 05/28/2024 6:51 AM DOOR LINER HELPER ESRD (end stage renal disease) on dialysis (HCC) Alcoholic cirrhosis of liver without ascites (HCC) CBC W/O DIFFERENTIAL Routine 05/28/2024 6:51 AM DOOR LINER HELPER ESRD (end stage renal disease) on dialysis (HCC) Alcoholic cirrhosis of liver without ascites (HCC) MAGNESIUM BLOOD Routine 05/28/2024 6:51 AM DOOR LINER HELPER ESRD (end stage renal disease) on dialysis (HCC) Alcoholic cirrhosis of liver without ascites (HCC) PHOSPHORUS BLOOD Routine 05/28/2024 6:51 AM DOOR LINER HELPER ESRD (end stage renal disease) on dialysis (HCC) Alcoholic cirrhosis of liver without ascites (HCC) COMPREHENSIVE METABOLIC PANEL Routine 05/27/2024 3:07 AM DOOR LINER HELPER ESRD (end stage renal disease) on dialysis (HCC) Alcoholic cirrhosis of liver without ascites (HCC) PT-INR [facility] Routine 05/27/2024 3:07 AM DOOR LINER HELPER ESRD (end stage renal disease) on dialysis (HCC) Alcoholic cirrhosis of liver without ascites (HCC) BILIRUBIN DIRECT Routine 05/27/2024 3:07 AM DOOR LINER HELPER ESRD (end stage renal disease) on dialysis (HCC) Alcoholic cirrhosis of liver without ascites (HCC) CBC W/O DIFFERENTIAL Routine 05/27/2024 3:07 AM DOOR LINER HELPER ESRD (end stage renal disease) on dialysis (HCC) Alcoholic cirrhosis of liver without ascites (HCC) MAGNESIUM BLOOD Routine 05/27/2024 3:07 AM DOOR LINER HELPER ESRD (end stage renal disease) on dialysis (HCC) Alcoholic cirrhosis of liver without ascites (HCC) PHOSPHORUS BLOOD Routine 05/27/2024 3:07 AM DOOR LINER HELPER ESRD (end stage renal disease) on dialysis (HCC) Alcoholic cirrhosis of liver without ascites (HCC) COMPREHENSIVE METABOLIC PANEL Routine 05/26/2024 4:20 AM DOOR LINER HELPER ESRD (end stage renal disease) on dialysis (HCC) Alcoholic cirrhosis of liver without ascites (HCC) PT-INR [facility] Routine 05/26/2024 4:20 AM DOOR LINER HELPER ESRD (end stage renal disease) on dialysis (HCC) Alcoholic cirrhosis of liver without ascites (HCC) BILIRUBIN DIRECT Routine 05/26/2024 4:20 AM DOOR LINER HELPER ESRD (end stage renal disease) on dialysis (HCC) Alcoholic cirrhosis of liver without ascites (HCC) CBC W/O DIFFERENTIAL Routine 05/26/2024 4:20 AM DOOR LINER HELPER ESRD (end stage renal disease) on dialysis (HCC) Alcoholic cirrhosis of liver without ascites (HCC) MAGNESIUM BLOOD Routine 05/26/2024 4:20 AM DOOR LINER HELPER ESRD (end stage renal disease) on dialysis (HCC) Alcoholic cirrhosis of liver without ascites (HCC) PHOSPHORUS BLOOD Routine 05/26/2024 4:20 AM DOOR LINER HELPER ESRD (end stage renal disease) on dialysis (HCC) Alcoholic cirrhosis of liver without ascites (HCC) COMPREHENSIVE METABOLIC PANEL Routine 05/25/2024 3:51 AM DOOR LINER HELPER ESRD (end stage renal disease) on dialysis (HCC) Alcoholic cirrhosis of liver without ascites (HCC) PT-INR [facility] Routine 05/25/2024 3:51 AM DOOR LINER HELPER ESRD (end stage renal disease) on dialysis (HCC) Alcoholic cirrhosis of liver without ascites (HCC) BILIRUBIN DIRECT Routine 05/25/2024 3:51 AM DOOR LINER HELPER ESRD (end stage renal disease) on dialysis (HCC) Alcoholic cirrhosis of liver without ascites (HCC) CBC W/O DIFFERENTIAL Routine 05/25/2024 3:51 AM DOOR LINER HELPER ESRD (end stage renal disease) on dialysis (HCC) Alcoholic cirrhosis of liver without ascites (HCC) MAGNESIUM BLOOD Routine 05/25/2024 3:51 AM DOOR LINER HELPER ESRD (end stage renal disease) on dialysis (HCC) Alcoholic cirrhosis of liver without ascites (HCC) PHOSPHORUS BLOOD Routine 05/25/2024 3:51 AM DOOR LINER HELPER ESRD (end stage renal disease) on dialysis (HCC) Alcoholic cirrhosis of liver without ascites (HCC) HEMODIALYSIS INPATIENT Routine 12:00 AM DOOR LINER HELPER XR PANOREX Routine 05/24/2024 2:12 PM DOOR LINER HELPER 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) COMPREHENSIVE METABOLIC PANEL Routine 05/24/2024 3:08 AM DOOR LINER HELPER ESRD (end stage renal disease) on dialysis (HCC) Alcoholic cirrhosis of liver without ascites (HCC) PT-INR [facility] Routine 05/24/2024 3:08 AM DOOR LINER HELPER ESRD (end stage renal disease) on dialysis (HCC) Alcoholic cirrhosis of liver without ascites (HCC) BILIRUBIN DIRECT Routine 05/24/2024 3:08 AM DOOR LINER HELPER ESRD (end stage renal disease) on dialysis (HCC) Alcoholic cirrhosis of liver without ascites (HCC) CBC W/O DIFFERENTIAL Routine 05/24/2024 3:08 AM DOOR LINER HELPER ESRD (end stage renal disease) on dialysis (HCC) Alcoholic cirrhosis of liver without ascites (HCC) MAGNESIUM BLOOD Routine 05/24/2024 3:08 AM DOOR LINER HELPER ESRD (end stage renal disease) on dialysis (HCC) Alcoholic cirrhosis of liver without ascites (HCC) PHOSPHORUS BLOOD Routine 05/24/2024 3:08 AM DOOR LINER HELPER ESRD (end stage renal disease) on dialysis (HCC) Alcoholic cirrhosis of liver without ascites (HCC) PTH INTACT W/O CALCIUM Routine 8:46 AM DOOR LINER HELPER FERRITIN Routine 05/23/2024 8:46 AM DOOR LINER HELPER VITAMIN D 25-HYDROXY Routine 05/23/2024 3:23 AM DOOR LINER HELPER IRON + TRANSFERRIN PANEL Routine 05/23/2024 3:23 AM DOOR LINER HELPER VANCOMYCIN LEVEL RANDOM Routine 05/23/2024 3:23 AM DOOR LINER HELPER COMPREHENSIVE METABOLIC PANEL Routine 05/23/2024 3:23 AM DOOR LINER HELPER ESRD (end stage renal disease) on dialysis (HCC) Alcoholic cirrhosis of liver without ascites (HCC) PT-INR [facility] Routine 05/23/2024 3:23 AM DOOR LINER HELPER ESRD (end stage renal disease) on dialysis (HCC) Alcoholic cirrhosis of liver without ascites (HCC) BILIRUBIN DIRECT Routine 05/23/2024 3:23 AM DOOR LINER HELPER ESRD (end stage renal disease) on dialysis (HCC) Alcoholic cirrhosis of liver without ascites (HCC) CBC W/O DIFFERENTIAL Routine 05/23/2024 3:23 AM DOOR LINER HELPER ESRD (end stage renal disease) on dialysis (HCC) Alcoholic cirrhosis of liver without ascites (HCC) MAGNESIUM BLOOD Routine 05/23/2024 3:23 AM DOOR LINER HELPER ESRD (end stage renal disease) on dialysis (HCC) Alcoholic cirrhosis of liver without ascites (HCC) PHOSPHORUS BLOOD Routine 05/23/2024 3:23 AM DOOR LINER HELPER ESRD (end stage renal disease) on dialysis (HCC) Alcoholic cirrhosis of liver without ascites (HCC) GLUCOSE - POINT OF CARE Routine 05/22/2024 4:19 PM DOOR LINER HELPER HEMODIALYSIS INPATIENT Routine 3:49 PM DOOR LINER HELPER CHLAMYDIA + GC AMPLIFIED PROBE Routine 05/22/2024 1:26 PM DOOR LINER HELPER GLUCOSE - POINT OF CARE Routine 05/22/2024 12:44 PM DOOR LINER HELPER CULTURE BLOOD Timed 05/22/2024 9:38 AM DOOR LINER HELPER CULTURE BLOOD Timed 05/22/2024 9:25 AM DOOR LINER HELPER GLUCOSE - POINT OF CARE Routine 05/22/2024 8:09 AM DOOR LINER HELPER VANCOMYCIN LEVEL RANDOM Routine 05/22/2024 2:55 AM DOOR LINER HELPER COMPREHENSIVE METABOLIC PANEL Routine 05/22/2024 2:55 AM DOOR LINER HELPER ESRD (end stage renal disease) on dialysis (HCC) Alcoholic cirrhosis of liver without ascites (HCC) PT-INR [facility] Routine 05/22/2024 2:55 AM DOOR LINER HELPER ESRD (end stage renal disease) on dialysis (HCC) Alcoholic cirrhosis of liver without ascites (HCC) BILIRUBIN DIRECT Routine 05/22/2024 2:55 AM DOOR LINER HELPER ESRD (end stage renal disease) on dialysis (HCC) Alcoholic cirrhosis of liver without ascites (HCC) CBC W/O DIFFERENTIAL Routine 05/22/2024 2:55 AM DOOR LINER HELPER ESRD (end stage renal disease) on dialysis (HCC) Alcoholic cirrhosis of liver without ascites (HCC) MAGNESIUM BLOOD Routine 05/22/2024 2:55 AM DOOR LINER HELPER ESRD (end stage renal disease) on dialysis (HCC) Alcoholic cirrhosis of liver without ascites (HCC) PHOSPHORUS BLOOD Routine 05/22/2024 2:55 AM DOOR LINER HELPER ESRD (end stage renal disease) on dialysis (HCC) Alcoholic cirrhosis of liver without ascites (HCC) GLUCOSE - POINT OF CARE Routine 05/21/2024 4:15 PM DOOR LINER HELPER GLUCOSE - POINT OF CARE Routine 05/21/2024 12:32 PM DOOR LINER HELPER HEMODIALYSIS INPATIENT Routine 11:06 AM DOOR LINER HELPER SYPHILIS ANTIBODY CASCADING REFLEX Routine 05/21/2024 2:29 AM DOOR LINER HELPER HEPATITIS C AB SCREEN RFLX NAAT QUANT Routine 05/21/2024 2:29 AM DOOR LINER HELPER HIV-1 HIV-2 ANTIBODY + HIV P24 AG PANEL STAT 05/21/2024 2:29 AM DOOR LINER HELPER VANCOMYCIN LEVEL RANDOM Routine 05/21/2024 2:29 AM DOOR LINER HELPER Pain and swelling of right knee COMPREHENSIVE METABOLIC PANEL Routine 05/21/2024 2:29 AM DOOR LINER HELPER ESRD (end stage renal disease) on dialysis (HCC) Alcoholic cirrhosis of liver without ascites (HCC) PT-INR [facility] Routine 05/21/2024 2:29 AM DOOR LINER HELPER ESRD (end stage renal disease) on dialysis (HCC) Alcoholic cirrhosis of liver without ascites (HCC) BILIRUBIN DIRECT Routine 05/21/2024 2:29 AM DOOR LINER HELPER ESRD (end stage renal disease) on dialysis (HCC) Alcoholic cirrhosis of liver without ascites (HCC) CBC W/O DIFFERENTIAL Routine 05/21/2024 2:29 AM DOOR LINER HELPER ESRD (end stage renal disease) on dialysis (HCC) Alcoholic cirrhosis of liver without ascites (HCC) MAGNESIUM BLOOD Routine 05/21/2024 2:29 AM DOOR LINER HELPER ESRD (end stage renal disease) on dialysis (HCC) Alcoholic cirrhosis of liver without ascites (HCC) PHOSPHORUS BLOOD Routine 05/21/2024 2:29 AM DOOR LINER HELPER ESRD (end stage renal disease) on dialysis (HCC) Alcoholic cirrhosis of liver without ascites (HCC) PATHOLOGY SMEAR BODY FLUID Routine 05/20/2024 6:41 PM DOOR LINER HELPER CRYSTAL INDENTIFICATION SYNOVIAL FLUID Routine 05/20/2024 6:41 PM DOOR LINER HELPER CULTURE WOUND+GRAM STAIN STAT 05/20/2024 6:41 PM DOOR LINER HELPER CULTURE ANAEROBE Routine 05/20/2024 6:41 PM DOOR LINER HELPER ENDOTRACHEAL TUBE NOTE Routine 6:24 PM DOOR LINER HELPER [place] PANKAJ SUBQ TISSUE 20 SQ CM/< 05/20/2024 6:03 PM DOOR LINER HELPER Infection Special Needs 05/20 @ 0611 CW COMPREHENSIVE METABOLIC PANEL STAT 05/20/2024 3:32 AM DOOR LINER HELPER ESRD (end stage renal disease) on dialysis (HCC) Alcoholic cirrhosis of liver without ascites (HCC) PT-INR [facility] STAT 05/20/2024 3:32 AM DOOR LINER HELPER ESRD (end stage renal disease) on dialysis (HCC) Alcoholic cirrhosis of liver without ascites (HCC) BILIRUBIN DIRECT STAT 05/20/2024 3:32 AM DOOR LINER HELPER ESRD (end stage renal disease) on dialysis (HCC) Alcoholic cirrhosis of liver without ascites (HCC) CBC W/O DIFFERENTIAL STAT 05/20/2024 3:32 AM DOOR LINER HELPER ESRD (end stage renal disease) on dialysis (HCC) Alcoholic cirrhosis of liver without ascites (HCC) MAGNESIUM BLOOD STAT 05/20/2024 3:32 AM DOOR LINER HELPER ESRD (end stage renal disease) on dialysis (HCC) Alcoholic cirrhosis of liver without ascites (HCC) PHOSPHORUS BLOOD STAT 05/20/2024 3:32 AM DOOR LINER HELPER ESRD (end stage renal disease) on dialysis (HCC) Alcoholic cirrhosis of liver without ascites (HCC) TRANSFUSE PLATELET PHERESIS UNIT(S) Routine 05/20/2024 2:20 AM DOOR LINER HELPER PREPARE PLATELET PHERESIS UNIT(S) STAT 05/20/2024 1:49 AM DOOR LINER HELPER URIC ACID BLOOD STAT 05/19/2024 11:55 PM DOOR LINER HELPER Pain and swelling of right knee CBC W/O DIFFERENTIAL STAT 05/19/2024 11:55 PM DOOR LINER HELPER Pain and swelling of right knee Thrombocytopenia (HCC) HEMODIALYSIS INPATIENT Routine 8:51 PM DOOR LINER HELPER CULTURE ANAEROBE STAT 05/19/2024 7:43 PM DOOR LINER HELPER Pain and swelling of right knee PATHOLOGY SMEAR BODY FLUID STAT 05/19/2024 7:42 PM DOOR LINER HELPER Pain and swelling of right knee DIFFERENTIAL MANUAL FLUID STAT 05/19/2024 7:42 PM DOOR LINER HELPER Pain and swelling of right knee CELL COUNT W DIFFERENTIAL FLUID STAT 05/19/2024 7:42 PM DOOR LINER HELPER Pain and swelling of right knee CULTURE FUNGUS OTHER+FUNGUS SMEAR STAT 05/19/2024 7:42 PM DOOR LINER HELPER Pain and swelling of right knee CULTURE FLUID+GRAM STAIN STAT 05/19/2024 7:42 PM DOOR LINER HELPER Pain and swelling of right knee ERYTHROCYTE SEDIMENTATION RATE STAT 05/19/2024 4:30 PM DOOR LINER HELPER Pain and swelling of right knee C-REACTIVE PROTEIN JOSUÉ 05/19/2024 4: 30 PM DOOR LINER HELPER Pain and swelling of right knee CBC W/O DIFFERENTIAL STAT 05/19/2024 4:30 PM DOOR LINER HELPER Thrombocytopenia (HCC) TRANSFUSE PLATELET PHERESIS UNIT(S) Routine 05/19/2024 3:45 PM DOOR LINER HELPER PREPARE PLATELET PHERESIS UNIT(S) STAT 05/19/2024 3:28 PM DOOR LINER HELPER TYPE + SCREEN PANEL STAT 05/19/2024 2 :23 PM DOOR LINER HELPER PT-INR [facility] STAT 05/19/2024 2:23 PM DOOR LINER HELPER OBTAIN CONSENT FOR TRANSFUSION Routine 05/19/2024 1:58 PM DOOR LINER HELPER XR KNEE RIGHT 3VW STAT 05/19/2024 11:59 AM DOOR LINER HELPER Pain and swelling of right knee MAGNESIUM BLOOD STAT 05/19/2024 11:46 AM DOOR LINER HELPER COMPREHENSIVE METABOLIC PANEL STAT 05/19/2024 11:46 AM DOOR LINER HELPER CBC W AUTO DIFFERENTIAL STAT 05/19/2024 11:46 AM DOOR LINER HELPER LIPID PROFILE Routine 12/25/2023 8:13 AM CDT [...] (ABNORMAL) COMPREHENSIVE METABOLIC PANEL (08/05/2024 2:28 PM DOOR LINER HELPER) Only the most recent of17 resultswithin the time period is included. BUN 33(H) 7 - 26 mg/dL 08/05/2024 3:15 PM [facility] Creatinine 5.66(H) 0.71 - 1.16 mg/dL 08/05/2024 3:15 PM [facility] Sodium 138 136 - 145 mmol/L 08/05/2024 3:15 PM [facility] Potassium See Comment 3.5 - 4.5 mmol/L 08/05/2024 3:15 PM [facility] Comment:Significant hemolysi s detected in this specimen. Recommend repeat testing if clinically indicated. Chloride 101 98 - 107 mmol/L 08/05/2024 3:15 PM [facility] CO2 25 22 - 29 mmol/L 08/05/2024 3:15 PM [facility] Glucose 93 70 - 99 mg/dL 08/05/2024 3:15 PM [facility] Calcium 9.0 8.4 - 10.2 mg/dL 08/05/2024 3:15 PM [facility] Protein Total See Comment 6.0 - 8.3 g/dL 08/05/2024 3:15 PM [facility] Comment:Significant hemolysi s detected in this specimen. Hemolysis leads to artifactual elevations of this analyte. The result has been suppressed. Please reorder test and submit a new specimen if clinically indicated. [employer] Instructor of Clinical Chemistry ([phone]) if you suspect in vivo hemolysis. Albumin 3.3(L) 3.4 - 5.0 g/dL 08/05/2024 3:15 PM [facility] Bilirubin Total 1.3(H) 0.2 - 1.2 mg/dL 08/05/2024 3:15 PM [facility] Alkaline Phosphatase 149 40 - 150 U/L 08/05/2024 3:15 PM [facility] ALT 14 5 - 55 U/L 08/05/2024 3:15 PM [facility] AST See Comment 5 - 34 Units/L 08/05/2024 3:15 PM [facility] Comment: Significant hemolysis detected in this specimen. Hemolysis leads to artifactual elevations of this analyte. The result has been suppressed. Please reorder test and submit a new specimen if clinically indicated. [employer] In[employer] Clinical Chemistry ([phone]) if you suspect in vivo hemolysis. BUN/Creatinine Ratio 6(L) 7 - 23 08/05/2024 3:15 PM [facility] Osmolality Calculated 293 275 - 295 mOsm/kg 08/05/2024 3:15 PM [facility] Albumin/Globuli n Ratio 0.8(L) 1.1 - 2.3 08/05/2024 3:15 PM [facility] eGFR by CKD-EPI 11(L) >=90 mL/min/1. 73 m2 08/05/2024 3:15 PM [facility] Blood BLOOD SPECIMEN / Unknown Venipuncture / Unknown 08/05/2024 2:28 PM DOOR LINER HELPER 08/05/2024 2:43 PM DOOR LINER HELPER Amina Mackeyshan Carrera HYDRAULIC RIVETER-[facility] LAB - CHEMIS TRY ORDERABLES Performing Organization Address City/[facility]/ZIP Co de Phone Number [address] [address], [facility] [phone] * GLUCOSE - POINT OF CARE (08/05/2024 2:27 PM DOOR LINER HELPER) Only the most recent of6 resultswithin the time period is included. Glucose WB/POC 99 70 - 99 mg/dL 08/05/2024 9:01 PM [facility] Specimen Type Venous 08/05/2024 9:01 PM [facility] Blood BLOOD SPECIMEN / Unknown 08/05/2024 2:27 PM DOOR LINER HELPER 08/05/2024 9:01 PM DOOR LINER HELPER Provider Unknown LAB - POINT OF CARE ORDERABLES Performing Organization Address [facility] Co de Phone Number [address] [address], [place] [phone] * (ABNORMAL) PT-INR [facility] (07/24/2024 7:38 AM DOOR LINER HELPER) Only the most recent of17 resultswithin the time period is included. Pathologist [facility] PT 17.6(H) 12.1 - 14.8 Seconds 07/24/2024 8:36 AM [facility] INR 1.5 See Comment 07/24/2024 8:36 AM [facility] Comment:The suggested therap eutic range for standard coumadin (warfarin) therapy is an INR of 2.0-3.0. For high-risk patients (Mechanical Mitral Valve Prosthesis, etc.), the suggested prophylactic therapeutic range is an INR of 2.5-3.5. Blood BLOOD SPECIMEN / Unknown Lab Venipuncture / Unknown 07/24/2024 7:38 AM DOOR LINER HELPER 07/24/2024 8:11 AM DOOR LINER HELPER Melecio Graves MD LAB - COAGULATION OR DERABLES Performing Organization Address City/[facility]/ZIP Co de Phone Number [address] [place] [address], [facility] [phone] * (ABNORMAL) DIFFERENTIAL MANUAL (07/24/2024 7:38 AM DOOR LINER HELPER) Only the most recent of3 resultswithin the time period is included. Neutrophil % 73 41 - 74 % 07/24/2024 10:44 AM [facility] Lymphocyte % 15(L) 17 - 47 % 07/24/2024 10:44 AM [facility] Monocyte % 7 3 - 11 % 07/24/2024 10:44 AM [facility] Eosinophil % 4 0 - 7 % 07/24/2024 10:44 AM [facility] Basophil % 1 0 - 2 % 07/24/2024 10:44 AM [facility] Neutrophil Absolute 2.34 1.60 - 7.50 x10E9/L 07/24/2024 10:44 AM [facility] Lymphocyte Absolute 0.48(L) 1.00 - 4.40 x10E9/L 07/24/2024 10:44 AM [facility] Monocyte Absolute 0.22 0.15 - 1.00 x10E9/L 07/24/2024 10:44 AM [facility] Eosinophil Absolute 0.13 0.00 - 0.60 x10E9/L 07/24/2024 10:44 AM [facility] Basophil Absolute 0.03 0.00 - 0.13 x10E9/L 07/24/2024 10:44 AM [facility] RBC Morphology REVIEWED 07/24/2024 10:44 AM [facility] Blood BLOOD SPECIMEN / Unknown Lab Venipuncture / Unknown 07/24/2024 7:38 AM DOOR LINER HELPER 07/24/2024 8:13 AM DOOR LINER HELPER Melecio Graves MD LAB - HEMATOLOGY ORD ERABLES [facility] [address] [place] [address], [facility] [phone] * (ABNORMAL) CBC W/ DIFFERENTIAL (07/24/2024 7:38 AM DOOR LINER HELPER) Only the most recent of7 resultswithin the time period is included. WBC 3.2(L) 4.0 - 10.7 x10E9/L 07/24/2024 10:44 AM [facility] RBC Count 2.83(L) 4.30 - 5.80 x10E12/L 07/24/2024 10:44 AM [facility] Hemoglobin 9.3(L) 13.3 - 17.5 g/dL 07/24/2024 10:44 AM [facility] Hematocrit 27.9(L) 38.7 - 51.1 % 07/24/2024 10:44 AM [facility] MCV 98.6(H) 80.0 - 98.0 fL 07/24/2024 10:44 AM [facility] MCH 32.9 26.7 - 33.6 pg 07/24/2024 10:44 AM [facility] MCHC 33.3 31.7 - 36.3 g/dL 07/24/2024 10:44 AM [facility] RDW-CV 16.8(H) 11.3 - 14.8 % 07/24/2024 10:44 AM [facility] Platelet Count 48(L) 150 - 420 x10E9/L 07/24/2024 10:44 AM [facility] MPV 10.3 7.8 - 11.4 fL 07/24/2024 10:44 AM [facility] Blood BLOOD SPECIMEN / Unknown Lab Venipuncture / Unknown 07/24/2024 7:38 AM [facility] 07/24/2024 8:13 AM [facility] - 07/24/2024 10:44 AM [facility] A previously reported component NEUT % is [...] HEMATOLOGY ORD ERABLES Performing Organization Address City/[facility]/ZIP Co de Phone Number [facility] [address] [place] [address], [facility] [phone] * APHERESIS/TRANSFUSION ORDER (07/14/2024 1:38 PM DOOR LINER HELPER) Narrative 07/14/2024 1:38 PM DOOR LINER HELPER Ordered by an unspecified provider. Scanned Document NURSING - VITAL SIGN S AND ASSESSMENT * PREPARE (CROSSMATCH) RBC UNIT(S), 1 Units (07/12/2024 1:17 AM DOOR LINER HELPER) Only the most recent of2 resultswithin the time period is included. Unit Description AS1 LR PRBC [facility] Unit ABO O [facility] Unit Rh NEG [facility] Product Number R02 [facility] Unit Donor # [id number] [facility] Unit Status released [facility] Product Code [id number] [facility] Blood Type Barcode 9500 [facility] Expiration Date [id number] [facility] Blood Bank BLOOD SPECIMEN / Unknown 07/11/2024 6:01 AM DOOR LINER HELPER Pawan Lynn DO LAB - BLOOD BANK ORDERABLES Performing Organization Address City/[facility]/ZIP Co de Phone Number [facility] [address] [place] [address], [facility] [phone] * TRANSFUSE PLATELET PHERESIS UNIT(S) (07/11/2024 9:19 AM DOOR LINER HELPER) Pawan Lynn DO NURSING - BLOOD P BETTIE TRANSFUSION * PATHOLOGY TISSUE (07/11/2024 8:43 AM DOOR LINER HELPER) Case Report Surgical Pathology Report Case: [id number] Authorizing Provider: Theron Medellin MD Collected: 07/11/2024 08:43 AM Ordering Location: [facility] Received: 07/11/2024 10:55 AM Pathologist: Bonnie Rene MD Specimen: Hernia Sac, RIGHT INGUINAL HERNIA SAC 07/14/2024 1:00 PM [facility] Final Diagnosis Soft tissue, right inguinal hernia sac, excision (A): - Fibrosis, reactive changes, and extensive hemosiderin deposition 07/14/2024 1:00 PM [facility] Microscopic Description and Comment Microscopic examination substantiates the final diagnosis. 07/14/2024 1:00 PM [facility] Clinical History The patient is a 58-year-old man with right inguinal hernia. Operative procedure: Repair 07/14/2024 1:00 PM [facility] Gross Description The [...] layer. There are no additional gross lesions. Oncology Rep sections are submitted in cassette A1. IKD 07/14/2024 1:00 PM [facility] Pathologist Location at [facility] 07/14/2024 1:00 PM [facility] Disclaimer The performance characteristics of all immunohistochemical and indirect immunofluorescence stains (if any) cited in this report were determined by the Histopathology Laboratory of [facility]. Some of these tests were developed by [...] the attending (teaching) pathologist. 07/14/2024 1:00 PM [facility] Embedded Images 07/14/2024 1:00 PM [facility] Biopsy, Excision HERNIA SAC / Unknown 07/11/2024 8:43 AM DOOR LINER HELPER 07/11/2024 10:55 AM DOOR LINER HELPER Comment:Pre-op diagnosis: symptomatic right inguinal hernia Theron Medellin MD LAB - PATHOLOGY/CYTO LOGY ORDERABLES Performing Organization Address City/State/ZIP Co tn Phone Number [facility] [address] [phone] * ETT LINE PERFORMABLE (07/11/2024 7:55 AM DOOR LINER HELPER) Narrative Kayla Joyce Anes Asst - 07/11/2024 7:55 AM DOOR LINER HELPER Kayla Joyce Anes Asst 07/11/2024 7:55 AM Endotracheal Tube Placement: Patient Location: OR. Intubation Event Date/Time: 07/11/2024 7:40 AM Procedure: intubation (50584) Procedure Section: Sedation: under general anesthesia. Indications [...] PHERESIS UNIT(S), 1 Units (07/11/2024 6:54 AM DOOR LINER HELPER) Only the most recent of3 resultswithin the time period is included. Unit Description LR PLT Phere B7 [facility] Unit ABO O [facility] Unit Rh POS [facility] Product Number P27 [facility] Unit Donor # [id number] [facility] Unit Status transfused [facility] Product Code [id number] [facility] Blood Type Barcode 5100 [facility] Expiration Date [id number] [facility] Blood Bank BLOOD SPECIMEN / Unknown 07/11/2024 6:01 AM DOOR LINER HELPER Pawan Lynn DO LAB - BLOOD BANK ORDERABLES Performing Organization Address City/[facility]/ZIP Co de Phone Number [facility] [address] [place] [address], [place] [phone] * TYPE + SCREEN PANEL (07/11/2024 5:57 AM DOOR LINER HELPER) Only the most recent of4 resultswithin the time period is included. Antibody Screen NEG 6:49 AM DOOR LINER HELPER [facility] ABO Rh O NEG 07/11/2024 6:49 AM DOOR LINER HELPER [facility] Blood Bank BLOOD SPECIMEN / Unknown Line Draw / Unknown 07/11/2024 5:57 AM DOOR LINER HELPER 07/11/2024 6:01 AM DOOR LINER HELPER Zoe Arevalo APRN-[employer] [facility] LAB - BLOOD B ANK ORDERABLES Performing Organization Address [facility] Co de Phone Number [facility] [address] [place] [address], [place] [phone] * POTASSIUM WHOLE BLD (07/11/2024 5:57 AM DOOR LINER HELPER) Potassium Whole Blood 4.2 3.5 - 5.5 mmol/L 07/11/2024 6:14 AM DOOR LINER HELPER [facility] Blood WHOLE BLOOD SPECIMEN / Unknown Line Draw / Unknown 07/11/2024 5:57 AM DOOR LINER HELPER 07/11/2024 6:04 AM DOOR LINER HELPER Zoe Arevalo HYDRAULIC RIVETER-[facility] LAB - LABORATORY MONITOR RY ORDERABLES Performing Organization Address City/[facility]/ZIP Co de Phone Number [facility] [address] [place] [address], [place] [phone] * (ABNORMAL) CBC W/O DIFFERENTIAL (06/14/2024 12:37 AM DOOR LINER HELPER) Only the most recent of14 resultswithin the time period is included. Pathologist [facility] WBC 1.5(L) 4.0 - 10.7 x10E9/L 06/14/2024 1:57 AM [facility] RBC Count 2.29(L) 4.30 - 5.80 x10E12/L 06/14/2024 1:57 AM [facility] Hemoglobin 7.3(L) 13.3 - 17.5 g/dL 06/14/2024 1:57 AM [facility] Hematocrit 21.4(L) 38.7 - 51.1 % 06/14/2024 1:57 AM [facility] MCV 93.4 80.0 - 98.0 fL 06/14/2024 1:57 AM [facility] MCH 31.9 26.7 - 33.6 pg 06/14/2024 1:57 AM [facility] MCHC 34.1 31.7 - 36.3 g/dL 06/14/2024 1:57 AM [facility] RDW-CV 17.8(H) 11.3 - 14.8 % 06/14/2024 1:57 AM [facility] Platelet Count 33(L) 150 - 420 x10E9/L 06/14/2024 1:57 AM [facility] MPV 10.7 7.8 - 11.4 fL 06/14/2024 1:57 AM [facility] Blood BLOOD SPECIMEN / Unknown Lab Venipuncture / Unknown 06/14/2024 12:37 AM DOOR LINER HELPER 06/14/2024 1:18 AM DOOR LINER HELPER Melecio Graves MD LAB - HEMATOLOGY ORD ERABLES [address] [address], [facility] [phone] * (ABNORMAL) BASIC METABOLIC PANEL (CALCIUM TOTAL) (06/14/2024 12:37 AM DOOR LINER HELPER) Only the most recent of3 resultswithin the time period is included. Pathologist [facility] BUN 21 7 - 26 mg/dL 06/14/2024 2:18 AM [facility] Creatinine 5.45(H) 0.71 - 1.16 mg/dL 06/14/2024 2:18 AM [facility] Sodium 139 136 - 145 mmol/L 06/14/2024 2:18 AM [facility] Potassium 4.3 3.5 - 4.5 mmol/L 06/14/2024 2:18 AM [facility] Chloride 99 98 - 107 mmol/L 06/14/2024 2:18 AM [facility] CO2 30(H) 22 - 29 mmol/L 06/14/2024 2:18 AM [facility] Glucose 84 70 - 99 mg/dL 06/14/2024 2:18 AM [facility] Calcium 8.1(L) 8.4 - 10.2 mg/dL 06/14/2024 2:18 AM [facility] Anion Gap 10 6 - 16 06/14/2024 2:18 AM [facility] BUN/Creatinine Ratio 4(L) 7 - 23 06/14/2024 2:18 AM [facility] Osmolality Calculated 290 275 - 295 mOsm/kg 06/14/2024 2:18 AM [facility] eGFR by CKD-EPI 11(L) >=90 mL/min/1.7 3 m2 06/14/2024 2:18 AM [facility] Blood BLOOD SPECIMEN / Unknown Lab Venipuncture / Unknown 06/14/2024 12:37 AM DOOR LINER HELPER 06/14/2024 1:19 AM [facility] Melecio Graves MD LAB - CHEMISTRY FREDO CHAVES [facility] Organization Address City/State/ZIP Co de Phone Number [facility] [address] [place] [address], [facility] [phone] * MAGNESIUM BLOOD (06/14/2024 12:37 AM [facility]) Only the most recent of14 resultswithin the time period is included. Magnesium 1.8 1.6 - 2.6 mg/dL 06/14/2024 1:49 AM [facility] Blood BLOOD SPECIMEN / Unknown Lab Venipuncture / Unknown 06/14/2024 12:37 AM DOOR LINER HELPER 06/14/2024 1:19 AM DOOR LINER HELPER Melecio Graves MD LAB - CHEMISTRY FREDO CHAVES [facility] Organization Address City/State/ZIP Co de Phone Number [facility] [address] [place] [address], [facility] [phone] * TRANSFUSE RED BLOOD CELL LEUKOREDUCED UNIT(S) (06/13/2024 5:43 PM DOOR LINER HELPER) Melecio Graves MD NURSING - BLOOD PROD TRANSFUSION * (ABNORMAL) HEPATIC FUNCTION PANEL (06/13/2024 8:48 AM DOOR LINER HELPER) Protein Total 5.7(L) 6.0 - 8.3 g/dL 9:48 AM [facility] Albumin 2.3(L) 3.4 - 5.0 g/dL 06/13/2024 9:48 AM [facility] Bilirubin Total 1.5(H) 0.2 - 1.2 mg/dL 06/01 9:48 AM [facility] Bilirubin Conjugated 0.9(H) 0.1 - 0.5 mg/dL 06/13/2024 9:48 AM [facility] Bilirubin Unconjugated 0.6 Unconjugated Bilirubin is a calculated value: Reference ranges have not been established. mg/dL 06/13/2024 9:48 AM [facility] Alkaline Phosphatase 77 40 - 150 U/L 06/13/2024 9:48 AM [facility] ALT 7 5 - 55 U/L 06/13/2024 9:48 AM [facility] AST 27 5 - 34 U/L 06/13/2024 9:48 AM [facility] Albumin/Globulin Ratio 0.7(L) 1.1 - 2.3 06/13/2024 9:48 AM [facility] Blood BLOOD SPECIMEN / Unknown Lab Venipuncture / Unknown 06/13/2024 8:48 AM DOOR LINER HELPER 06/13/2024 9:18 AM DOOR LINER HELPER Melecio Graves MD LAB - CHEMISTRY FREDO CHAVES Performing Organization Address City/[facility]/ZIP Co de Phone Number [address] [address], [facility] [phone] * FOLATE (06/13/2024 8:48 AM DOOR LINER HELPER) Folate 8.5 7.0 - 31.4 ng/mL 06/13/2024 10:[address] [facility] Blood BLOOD SPECIMEN / Unknown Lab Venipuncture / Unknown 06/13/2024 8:48 AM DOOR LINER HELPER 06/13/2024 9:18 AM DOOR LINER HELPER Melecio Graves MD LAB - CHEMISTRY FREDO CHAVES Performing Organization Address City/[facility]/ZIP Co de Phone Number [address] [address], [facility] [phone] * (ABNORMAL) VITAMIN B12 (06/13/2024 8:48 AM DOOR LINER HELPER) Vitamin B12 1,274(H) 213 - 816 pg/mL 06/13/2024 10:[address] [facility] Blood BLOOD SPECIMEN / Unknown Lab Venipuncture / Unknown 06/13/2024 8:48 AM DOOR LINER HELPER 06/13/2024 9:18 AM DOOR LINER HELPER Melecio Graves MD LAB - CHEMISTRY FREDO CHAVES Performing Organization Address City/[facility]/ZIP Co de Phone Number [address] [address], [facility] [phone] * (ABNORMAL) PTH INTACT W/O CALCIUM (06/12/2024 1:23 AM DOOR LINER HELPER) Only the most recent of2 resultswithin the time period is included. PTH Intact 407.3(H) 8.0 - 77.0 pg/mL 06/12/2024 2:[address] [facility] Blood BLOOD SPECIMEN / Unknown Lab Venipuncture / Unknown 06/12/2024 1:23 AM DOOR LINER HELPER 06/12/2024 1:42 AM DOOR LINER HELPER Melecio Graves MD LAB - CHEMISTRY FREDO CHAVES Performing Organization Address City/[facility]/ZIP Co de Phone Number [address] [address], [place] [phone] * (ABNORMAL) IRON + TRANSFERRIN PANEL (06/12/2024 1:23 AM DOOR LINER HELPER) Only the most recent of2 resultswithin the time period is included. Iron 48(L) 50 - 175 ug/dL 06/12/2024 2:20 AM DOOR LINER HELPER [facility] Transferrin 79(L) 174 - 382 mg/dL 06/12/2024 2:[address] [facility] Transferrin Saturation % 49 16 - 50 % 06/12/2024 2:[address] [facility] TIBC Calculated 99(L) 240 - 450 ug/dL 06/12/2024 2:[address] [facility] Blood BLOOD SPECIMEN / Unknown Lab Venipuncture / Unknown 06/12/2024 1:23 AM DOOR LINER HELPER 06/12/2024 1:42 AM DOOR LINER HELPER Melecio Graves MD LAB - CHEMISTRY FREDO CHAVES Performing Organization Address [facility]/ZIP Co de Phone Number [address] [address], [place] [phone] * (ABNORMAL) FERRITIN (06/12/2024 1:23 AM DOOR LINER HELPER) Only the most recent of2 resultswithin the time period is included. Ferritin 938(H) 22 - 275 ng/mL 06/12/2024 2:[address] [facility] Blood BLOOD SPECIMEN / Unknown Lab Venipuncture / Unknown 06/12/2024 1:23 AM DOOR LINER HELPER 06/12/2024 1:42 AM DOOR LINER HELPER Melecio Graves MD LAB - CHEMISTRY FREDO CHAVES Performing Organization Address City/[facility]/ZIP Co de Phone Number [address] [address] [phone] * EKG 12-LEAD (06/11/2024 7:45 PM DOOR LINER HELPER) Ventricular Rate 59 BPM [facility] Atrial Rate 59 BPM [facility] P-R Interval 242 ms [facility] QRS Duration ms 102 ms [facility] Q-T Interval ms 492 ms [facility] QTC Calculation (Bezet) 487 ms [facility] Calculated P [place] 72 degrees [facility] Calculated R [place] 62 degrees [facility] Calculated T [place] 74 degrees [facility] Interpretation EKG SINUS BRADYCARDIA WITH 1ST DEGREE A-V BLOCK T WAVE ABNORMALITY, CONSIDER ANTERIOR ISCHEMIA ABNORMAL ECG Confirmed by LEILANI ROJAS MD ([id number]) on 06/13/2024 1:39:21 PM [facility] 06/11/2024 7:45 PM DOOR LINER HELPER 06/13/2024 1:39 PM DOOR LINER HELPER Melecio Graves MD ECG ORDERABLES [facility] * CT Knee Right Wo Contrast (06/11/2024 5:55 PM DOOR LINER HELPER) Anatomical Region Laterality Modality Lower Extremity Computed Tomogra phy 06/11/2024 6:16 PM DOOR LINER HELPER Impressions 06/12/2024 12:48 AM DOOR LINER HELPER IMPRESSION: 1.There is an osteochondral defect of [...] arthritis. > Dictated by Sandro Bro DO (residential property tax appraiser). I, Chad Renner MD have personally reviewed and interpreted this examination/study. > Interpreting Provider: Chad Renner MD on 06/12/2024 12:48 AM Narrative 06/12/2024 12:48 AM DOOR LINER HELPER PROCEDURE: CT KNEE RIGHT WO CONTRAST DATE/TIME [...] arthritis. > Dictated by Sandro Bro DO (residential property tax appraiser). I, Chad Renner MD have personally reviewed and interpreted this examination/study. > Interpreting Provider: Chad Renner MD on 06/12/2024 12:48 AM Minerva Ventura MD CT ORDERABLES * XR Knee Right 3Vw (06/11/2024 3:41 PM DOOR LINER HELPER) Only the most recent of2 resultswithin the time period is included. Anatomical Region Laterality Modality Lower Extremity Digital Radiogra phy 06/11/2024 3:37 PM DOOR LINER HELPER Impressions 06/11/2024 3:56 PM DOOR LINER HELPER IMPRESSION: Increase in size of moderate suprapatellar joint effusion. No acute fracture or dislocation. No radiographic evidence of osteomyelitis. Soft tissue swelling. Report dictated by Zahida Catalan MD, (residential property tax appraiser). I, Elzbieta Woodard MD have personally reviewed and interpreted this examination/study. > Interpreting Provider: Elzbieta Woodard MD on 06/11/2024 3:56 PM Narrative 06/11/2024 3:56 PM DOOR LINER HELPER PROCEDURE: XR KNEE RIGHT 3VW DATE/TIME OF [...] swelling. Report dictated by Zahida Catalan MD, (residential property tax appraiser). I, Elzbieta Woodard MD have personally reviewed and interpreted this examination/study. > Interpreting Provider: Elzbieta Woodard MD on 06/11/2024 3:56 PM Hany Whyte MD DIAGNOSTIC IMAGING O RDERABLES * (ABNORMAL) C-REACTIVE PROTEIN (06/11/2024 8:18 AM DOOR LINER HELPER) Only the most recent of2 resultswithin the time period is included. C-Reactive Protein 4.6(H) <=0.5 mg/dL 06/11/2024 8:[address] [facility] Blood BLOOD SPECIMEN / Unknown Venipuncture / Unknown 06/11/2024 8:18 AM DOOR LINER HELPER 06/11/2024 8:25 AM DOOR LINER HELPER Chivo Agudelo MD LAB - CHEMISTRY ORDE ANASTACIO Performing Organization Address City/[facility]/ZIP Co de Phone Number [address] [address], [facility] [phone] * (ABNORMAL) ERYTHROCYTE SEDIMENTATION RATE (06/11/2024 8:18 AM DOOR LINER HELPER) Only the most recent of2 resultswithin the time period is included. Erythrocyte Sedimentation Rate Westergren 31(H) 0 - 20 MM/HR 06/11/2024 10:[address] [facility] Blood BLOOD SPECIMEN / Unknown Venipuncture / Unknown 06/11/2024 8:18 AM DOOR LINER HELPER 06/11/2024 8:25 AM DOOR LINER HELPER Chivo Agudelo MD LAB - HEMATOLOGY ORD ERABLES Performing Organization Address City/[facility]/ZIP Co de Phone Number [address] [address], [facility] [phone] * PHOSPHORUS BLOOD (06/11/2024 8:18 AM DOOR LINER HELPER) Only the most recent of10 resultswithin the time period is included. Phosphorus 3.7 2.8 - 5.1 mg/dL 06/11/2024 8:[address] [facility] Blood BLOOD SPECIMEN / Unknown Venipuncture / Unknown 06/11/2024 8:18 AM DOOR LINER HELPER 06/11/2024 8:25 AM DOOR LINER HELPER Chivo Agudelo MD LAB - CHEMISTRY ORDE ANASTACIO [facility] [address] [place] [address], [facility] [phone] * (ABNORMAL) BILIRUBIN DIRECT (05/28/2024 6:51 AM DOOR LINER HELPER) Only the most recent of9 resultswithin the time period is included. Bilirubin Conjugated 0.7(H) 0.1 - 0.5 mg/dL 05/28/2024 7:[address] [facility] Blood BLOOD SPECIMEN / Unknown Lab Venipuncture / Unknown 05/28/2024 6:51 AM DOOR LINER HELPER 05/28/2024 7:09 AM DOOR LINER HELPER Sanjuana Salazar MD LAB - CHEMISTRY ORDGerhard CHAVES [facility] [address] [place] [address], [facility] [phone] * XR Panorex (05/24/2024 2:12 PM DOOR LINER HELPER) Anatomical Region Laterality Modality Head Radiographic Cindy ging 05/25/2024 8:00 AM DOOR LINER HELPER Impressions 05/25/2024 11:44 PM DOOR LINER HELPER IMPRESSION: Motion artifact degrades image quality, within exam limitations. Consider performing this study again. Nonspecific radiolucency of the right paramedian mandible. Otherwise no evidence of periapical abscess. Report dictated by Judy Muller Dr, MD (residential property tax appraiser). I, Sonja Sanders MD have personally reviewed and interpreted this examination/study. > Interpreting Provider: Sonja Sanders MD on 05/25/2024 11:44 PM Narrative 05/25/2024 11:44 PM DOOR LINER HELPER PROCEDURE: XR PANOREX, DATE/TIME OF EXAM: 05/24/2024 2:13 PM, LOCATION [facility] INDICATION: M00.861: Arthritis of right knee [...] DATE/TIME OF EXAM: 05/24/2024 2:13 PM, LOCATION [facility] INDICATION: M00.861: Arthritis of right knee [...] Report dictated by Judy Muller Dr, MD (residential property tax appraiser). I, Sonja Sanders MD have personally reviewed and interpreted this examination/study. > Interpreting Provider: Sonja Sanders MD on 05/25/2024 11:44 PM Uli Murphy MD DIAGNOSTIC IMAGING O RDERABLES * (ABNORMAL) VITAMIN D 25-HYDROXY (05/23/2024 3:23 AM DOOR LINER HELPER) Vitamin D, 25 Hydroxy 16.4(L) 30.0 - 80.0 ng/mL 05/23/2024 8:10 AM DOOR LINER HELPER [facility] Comment: The recommendations for 25-Hydroxy [...] Lab Venipuncture / Unknown 05/23/2024 3:23 AM DOOR LINER HELPER 05/23/2024 4:04 AM DOOR LINER HELPER Uli Murphy MD LAB - CHEMISTRY FREDO CHAVES Performing Organization Address City/[facility]/ZIP Co de Phone Number [address] [address], [facility] [phone] * VANCOMYCIN LEVEL RANDOM (05/23/2024 3:23 AM DOOR LINER HELPER) Only the most recent of3 resultswithin the time period is included. Pathologist [facility] Vancomycin Random 19.8 Therapeutic Ranges not established for random specimens ug/mL 05/23/2024 4:[address] [facility] Blood BLOOD SPECIMEN / Unknown Lab Venipuncture / Unknown 05/23/2024 3:23 AM DOOR LINER HELPER 05/23/2024 3:59 AM DOOR LINER HELPER Narrative [facility] - 05/23/2024 4:24 AM DOOR LINER HELPER See institution protocol. Uli Murphy MD LAB - CHEMISTRY FREDO CHAVES [address] [address], [place] [phone] * CHLAMYDIA + GC AMPLIFIED PROBE (05/22/2024 1:26 PM DOOR LINER HELPER) Chlamydia Amplified Probe Negative Negative 05/22/2024 8:38 PM DOOR LINER HELPER [facility] GC Amplified Probe Negative Negative 05/22/2024 8:38 PM DOOR LINER HELPER [facility]CRO[facility] Microbiology ENTIRE PHARYNX / Unknown Collection / Unknown 05/22/2024 1:26 PM DOOR LINER HELPER 05/22/2024 1:31 PM DOOR LINER HELPER Narrative [facility] - 05/22/2024 8:38 PM DOOR LINER HELPER Results based on detection/no detection of ribosomal RNA by amplified method. Uli Murphy MD LAB - MICROBIOLOGY O MEREDITH Performing Organization Address City/[facility]/ZIP Co de Phone Number [facility] [address] [place] [address], [facility] [phone] * CULTURE BLOOD (05/22/2024 9:38 AM DOOR LINER HELPER) Only the most recent of2 resultswithin the time period is included. Pathologist [facility] Culture No growth day 5 LEANNE 05/27/2024 2:31 PM DOOR LINER HELPER [facility] Blood PERIPHERAL BLOOD / Unknown Lab Venipuncture / Unknown 05/22/2024 9:38 AM DOOR LINER HELPER 05/22/2024 10:03 AM DOOR LINER HELPER Uli Murphy MD LAB - MICROBIOLOGY O MEREDITH Performing Organization Address [facility] Co de Phone Number [facility] [address] [place] [address], [facility] [phone] * HEPATITIS C AB SCREEN RFLX NAAT QUANT (05/21/2024 2:29 AM DOOR LINER HELPER) Pathologist [facility] Hepatitis C Antibody Non-react jaden Non-reac tive 05/22/2024 8:44 AM DOOR LINER HELPER [facility] Comment:Hepatitis C Antibody screen indicates [...] Lab Venipuncture / Unknown 05/21/2024 2:29 AM DOOR LINER HELPER 05/21/2024 3:08 AM DOOR LINER HELPER Uli Murphy MD LAB - CHEMISTRY FREDO CHAVES Performing Organization Address City/[facility]/ZIP Co de Phone Number [facility] [address] [address], [place] [phone] * SYPHILIS ANTIBODY CASCADING REFLEX (05/21/2024 2:29 AM DOOR LINER HELPER) Treponema pallidum Antibody Non-react jaden Non-react jaden 05/22/2024 8:44 AM DOOR LINER HELPER [facility] Comment: No Laboratory evidence of syphilis infection. Note: Circulating antibodies may be low or undetectable in early infection. If recent exposure is suspected, re-draw sample in 2-4 weeks and repeat testing. Blood BLOOD SPECIMEN / Unknown Lab Venipuncture / Unknown 05/21/2024 2:29 AM DOOR LINER HELPER 05/21/2024 3:08 AM DOOR LINER HELPER Uli Murphy MD LAB - SEROLOGY ORDER MALIHA [facility] [address] [place] [address], [facility] [phone] * HIV-1 HIV-2 ANTIBODY + HIV P24 AG PANEL (05/21/2024 2:29 AM DOOR LINER HELPER) HIV Antigen/Antibod y 1 & 2 Non-reacti ve Non-react jaden 05/22/2024 8:[address] [facility] Comment:No Laboratory eviden ce of HIV infection. Blood BLOOD SPECIMEN / Unknown Lab Venipuncture / Unknown 05/21/2024 2:29 AM DOOR LINER HELPER 05/21/2024 3:08 AM DOOR LINER HELPER Uli Murphy MD LAB - CHEMISTRY ORDE RABLES [facility] [address] [place] [address], [place] [phone] * CRYSTAL INDENTIFICATION SYNOVIAL FLUID (05/20/2024 6:41 PM DOOR LINER HELPER) Crystal Exam Fluid To be performed by Pathology. See Path Review. 05/21/2024 8:[address] [facility] Fluid SYNOVIAL FLUID / Unknown Collection / Unknown 05/20/2024 6:41 PM DOOR LINER HELPER 05/21/2024 8:13 AM DOOR LINER HELPER Gerardo Álvarez MD LAB - BODY FLUID ORD ERABLES [address] [address], [place] [phone] * PATHOLOGY SMEAR BODY FLUID (05/20/2024 6:41 PM DOOR LINER HELPER) Only the most recent of2 resultswithin the time period is included. Path Review Fluid Confirmed 05/22/2024 4:[address] [facility] Fluid SYNOVIAL FLUID / Unknown Collection / Unknown 05/20/2024 6:41 PM DOOR LINER HELPER 05/21/2024 8:13 AM DOOR LINER HELPER Narrative [facility] - 05/22/2024 4:04 PM DOOR LINER HELPER No intracellular crystals seen. Gerardo Álvarez MD LAB - PATHOLOGY/CYTO LOGY ORDERABLES Performing Organization Address [facility]/ZIP Co de Phone Number [place] [id number] [place] [address], [facility] [phone] * CULTURE WOUND+GRAM STAIN (05/20/2024 6:41 PM DOOR LINER HELPER) Culture No growth LEANNE 05/23/2024 5:56 AM DOOR LINER HELPER [facility] Gram Stain Moderate Polymorphonuclear cells 05/23/2024 5:56 AM DOOR LINER HELPER [facility] Gram Stain Moderate Red blood cells 05/23/2024 5:56 AM DOOR LINER HELPER [facility] Gram Stain No organisms seen 024 5:56 AM DOOR LINER HELPER [facility] Microbiology ENTIRE KNEE REGION / Unknown Collection / Unknown 05/20/2024 6:41 PM DOOR LINER HELPER 05/20/2024 6:49 PM DOOR LINER HELPER Gerardo Álvarez MD LAB - MICROBIOLOGY O RDERABLES [facility] [address] [place] [address], [place] [phone] * (ABNORMAL) CULTURE ANAEROBE (05/20/2024 6:41 PM DOOR LINER HELPER) Only the most recent of2 resultswithin the time period is included. Culture Light Gemella species(A) LEANNE 05/25/2024 12:32 PM DOOR LINER HELPER [facility] Microbiology ENTIRE KNEE REGION / Unknown Collection / Unknown 05/20/2024 6:41 PM DOOR LINER HELPER 05/20/2024 6:50 PM DOOR LINER HELPER Gerardo Álvarez MD LAB - MICROBIOLOGY O RDERABLES [facility] [address] [place] [address], [facility] [phone] * ETT LINE PERFORMABLE (05/20/2024 6:24 PM DOOR LINER HELPER) Narrative Kiko Garner Anes Asst - 05/20/2024 6:24 PM DOOR LINER HELPER Kiko Garner Anes Asst 05/20/2024 6:27 PM Endotracheal Tube Placement: Patient Location: OR. Intubation Event Date/Time: 05/20/2024 6:10 PM Procedure: intubation (05962) Procedure Section: Sedation: under general anesthesia. Indications [...] Anes Asst, Performed the procedure. Provider #2: Senior Functional Analyst, Student Anesthesiology Senior Functional Analyst Student Anesthesiology, Performed the procedure. Additional Comments: Atraumatic supervised intubation performed by Ramandeep Lawton, Student Anesthesiologist Senior Functional Analyst.. Nickolas Donahue MD GENERAL ANESTHESIA O RDERABLES * TRANSFUSE PLATELET PHERESIS UNIT(S) (05/20/2024 3:17 AM DOOR LINER HELPER) Sanjuana Salazar MD NURSING - BLOOD PROD TRANSFUSION * (ABNORMAL) URIC ACID BLOOD (05/19/2024 11:55 PM DOOR LINER HELPER) Uric Acid 7.6(H) 3.5 - 7.2 mg/dL 05/20/2024 12:[address] [facility] Blood BLOOD SPECIMEN / Unknown Venipuncture / Unknown 05/19/2024 11:55 PM DOOR LINER HELPER 05/19/2024 11:58 PM DOOR LINER HELPER Sanjuana Salazar MD LAB - CHEMISTRY ORDE RABLES [facility] [address] [place] [address], [facility] [phone] * CULTURE FUNGUS OTHER+FUNGUS SMEAR (05/19/2024 7:42 PM DOOR LINER HELPER) Culture No fungus isolated LEANNE 06/14/2024 2:51 PM DOOR LINER HELPER [facility] Fungus Stain No yeast or hyphae seen 06/14/2024 2:51 PM DOOR LINER HELPER [facility] Microbiology SYNOVIAL FLUID / Unknown Collection / Unknown 05/19/2024 7:42 PM DOOR LINER HELPER 05/19/2024 7:42 PM DOOR LINER HELPER Sanjauna Salazar MD LAB - MICROBIOLOGY O RDERABLES [facility] [address] [place] [address], [facility] [phone] * DIFFERENTIAL MANUAL FLUID (05/19/2024 7:42 PM DOOR LINER HELPER) Fluid Source Synovial 05/19/2024 9:14 PM DOOR LINER HELPER [facility] Body Fluid Total Cell Count 100 x10E6/L 05/19/2024 9:14 PM [facility] Neutrophils Fluid Percent 97 % 05/19/2024 9:14 PM [facility] Lymphocytes Fluid Percent 2 % 05/19/2024 9:[address] [facility] Macrophages Fluid Percent 1 % 05/19/2024 9:14 PM [facility] Fluid SYNOVIAL FLUID / Unknown Collection / Unknown 05/19/2024 7:42 PM DOOR LINER HELPER 05/19/2024 7:42 PM DOOR LINER HELPER Narrative [facility] - 05/19/2024 9:14 PM DOOR LINER HELPER No reference ranges established for body fluid differential cell counts. The test results must be integrated into the clinical context for interpretation. Sanjuana Salazar MD LAB - BODY FLUID ORD ERABLES Performing Organization Address City/[facility]/ZIP Co de Phone Number [facility] [address] [place] [address], [facility] [phone] * CULTURE FLUID+GRAM STAIN (05/19/2024 7:42 PM DOOR LINER HELPER) Culture No growth LEANNE 05/23/2024 5:56 AM DOOR LINER HELPER [facility] Gram Stain Light Polymorphonuclear cells 05/23/2024 5:56 AM DOOR LINER HELPER [facility] Gram Stain No organisms seen 024 5:56 AM DOOR LINER HELPER [facility] Other SYNOVIAL FLUID / Unknown Collection / Unknown 05/19/2024 7:42 PM DOOR LINER HELPER 05/19/2024 7:42 PM DOOR LINER HELPER Sanjuana Salazar MD LAB - MICROBIOLOGY O RDERABLES Performing Organization Address City/[facility]/ZIP Co de Phone Number [facility] [address] [place], [place] [address] [phone] * (ABNORMAL) CELL COUNT W DIFFERENTIAL FLUID (05/19/2024 7:42 PM DOOR LINER HELPER) Fluid Source Synovial 05/19/2024 9:14 PM DOOR LINER HELPER [facility] Fluid Appearance TURBID 05/19/2024 9:14 PM DOOR LINER HELPER [facility] Fluid Color ORANGE 05/19/2024 9:[address] [facility] Total Nucleated Cells Fluid 56,010(H) <=200 x10E6/L 05/19/2024 9:14 PM [facility] RBC Count Fluid 40,000 Reference Range Not Established x10E6/L 05/19/2024 9:14 PM DOOR LINER HELPER [facility] Fluid SYNOVIAL FLUID / Unknown Collection / Unknown 05/19/2024 7:42 PM DOOR LINER HELPER 05/19/2024 7:42 PM DOOR LINER HELPER Narrative [facility] - 05/19/2024 9:14 PM DOOR LINER HELPER No reference ranges established for body fluid cell counts. Any reference ranges provided are derived from published literature. The test results must be integrated into the clinical context for interpretation. Sanjuana Salazar MD LAB - BODY FLUID ORD ERABLES Performing Organization Address City/[facility]/ZIP Co de Phone Number [facility] [address] [place] [address], [facility] [phone] * TRANSFUSE PLATELET PHERESIS UNIT(S) (05/19/2024 5:26 PM DOOR LINER HELPER) John Gutiérrez DO NURSING - BLOOD PROD TRANSFUSION * (ABNORMAL) LIPID PROFILE (12/25/2023 8:13 AM CDT) Pathologist [facility] Cholesterol Total 104 <200 mg/dL 12/25/2023 9:18 AM [facility] HDL 37(L) >40 mg/dL 12/25/2023 9:18 AM [facility] Comment: ATP III Classification of HDL Cholesterol: <40 mg/dL: Considered a major risk factor. >60 mg/dL: Considered a negative risk factor. LDL Calculated 56 <100 mg/dL 12/25/2023 9:18 AM [facility] Comment: ATP III Classification of LDL Cholesterol: <100 mg/dL: Optimal 100 - 129 mg/dL: Near Optimal/Above Optimal 130 - 159 mg/dL: Borderline High 160 - 189 mg/dL: High >190 mg/dL: Very High Triglycerides 57 <150 mg/dL 12/25/2023 9:18 AM [facility] Comment: ATP III Classification of Triglycerides: <150 mg/dL: Normal 150 - 199 mg/dL: Borderline High 200 - 400 mg/dL: High >500 mg/dL: Very High Blood BLOOD SPECIMEN / Unknown Lab Venipuncture / Unknown 12/25/2023 8:13 AM CDT 12/25/2023 8:37 AM CDT Eugenie Dsouza [facility] - CHEMI STRY ORDERABLES [facility] [address] [facility] [place] [address], [facility] [phone] * ENDOSCOPY, COLON, DIAGNOSTIC (01/12/2020 3:38 PM [...] entire procedure. 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 All rights reserved. The codes documented in this report are preliminary and upon document imaging manager review may be revised to meet current compliance requirements. _ Connor Virgen, 01/12/2020 4:25:45 PM Note Initiated On: 01/12/2020 3:38 PM Number of Addenda: 0 [facility] [address] [place] [address] [facility] [employer] 01/12/2020 3:38 PM CDT Connor Chavez MD GI PROCEDURE ORDERABLES [facility] [employer] from Last 3 Months or Most Recently Relevant to Health Maintenance Administered Medications Advance Directives Documents on File Type Date Recorded Patient Oncology Rep Expl anation Adv Directive/Living Will/POA 06/05/2019 * [...] 10:59 PM 07/20/2021 2:28 PM Care Teams Wine Master Relationship Specialty Start Date End Date Erfen Ramirez DO [address] [place] [id number] PCP - General Internal Medicine 06/12/24
--- OUTSIDE RECORDS SUMMARY | 2024-08-12 09:33 | XMS_ITS | Patient Health Summary ---
Author Organization [facility] [employer] Address [address] [place] [address] Care Team Providers Care Food Products Sales Representative Name Role Phone Efren Ramirez DO Primary Care Provider Note from [facility],non-owned Affiliates and Associated Physician Practices is amultiple site organization consisting of ambulatory clinics and hospital sitesin [place], [place], [place] and [place]. This disclosure is being madepursuant to the Care Everywhere program and may not contain all information available regarding this patient. Last updated 18.[facility] Allergies No known active allergies Medications [...] and heating? Not hard at all 06/12/2024 [facility] [place] of Occupat ional Health - Occupational Stress [...] place to sleep or slept in a prison (including now)? No 11/01/2023 Housing Stability Vital Sign Answer Armaan e Recorded In the last 12 months, was t here a time when you were not able to pay the mortgage or rent on time? No 06/12/2024 In the past 12 months, how m any times have you moved where you were living? 0 06/12/2024 At any time in the past 12 m [place], were you homeless or living in a prison (including now)? No 06/12/2024 Sex and Gender Information Value Date Recorded Sex Assigned at Not on file Gender Identity Not on file Sexual Orientation Not on file Last Filed Vital Signs Vital Sign Reading Time Taken Comments Blood Pressure 129/57 08/05/2024 12:50 PM CLUTCH INSPECTOR Pulse 56 08/05/2024 12:50 PM CLUTCH INSPECTOR Temperature 36.5 C (97.7 F) 08/05/2024 12:50 PM CLUTCH INSPECTOR Respiratory Rate 14 08/05/2024 12:50 PM CLUTCH INSPECTOR Oxygen Saturation 100% 08/05/2024 12:50 PM CLUTCH INSPECTOR Inhaled Oxygen Concentration 30% 10/31/2023 5 :04 PM CDT Weight 77.1 kg (170 lb) 08/05/2024 12:50 PM CLUTCH INSPECTOR Height 177.8 cm (5' 10 ) 08/05/2024 12:50 PM CLUTCH INSPECTOR Body Mass Index 24.39 08/05/2024 12:50 PM CLUTCH INSPECTOR Medical Devices Implanted Type Area Guide Delegate Device Identifier Shelf Expiration Date Model / Serial / Lot Kit Durathane Drflw Embosafe Chrnc Dlys Implanted:Qty: 1 on 03/07/2019 by Trav Pandey MD at [facility] Right: Chest [employer] 03/31/2021 [id number] / / [id number] Graft Vasc 6mm 40cm Ptfe Flixene Sldr - [id number] Implanted:Qty: 1 on 02/21/2022 by Kiko Pena MD at [facility] Left: Arterial Maquet 07/20/2023 [id number] / [id number] / Mesh Srg Parietex Progrip 14x9cm Slf Implanted:Qty: 1 on 07/11/2024 by Theron Medellin MD at [facility] Right: Inguinal Covidien [id number] 08/29/2028 [id number] / / [id number] Procedures * COMPREHENSIVE METABOLIC PANEL(Performed 08/05/2024) * [...] * TRANSFUSE PLATELET PHERESIS UNIT(S)(Performed 07/11/2024) * OK RPR 1ST INGUN HRNA AGE 5 YRS/> [...] 05/20/2024) * ENDOTRACHEAL TUBE NOTE(Performed 05/20/2024) * OK PANKAJ SUBQ TISSUE 20 SQ CM/<(Performed 05/20/2024) [...] EKG 12-LEAD(Performed 10/29/2023) Performed for Malaise * OK ED EGD FLEX TRANSORAL DX(Performed 09/13/2023) Performed [...] unspecified hepatic cirrhosis type (HCC), Smoker * FOFANA/CLOTHING SUPERVISOR (FRANCESCA) ANTIBODY IGG(Performed 04/26/2023) Performed for ESRD [...] (HCC), Atrial flutter, unspecified type (HCC) * ZSFSI-6-DTMHHYHTLAX BLOOD PHENOTYPING PANEL(Performed 12/07/2022) Performed for Decompensated [...] (HCC), Atrial flutter, unspecified type (HCC) * OK LARYNGOSCOPY,FLEX FIBER,DIAGNOSTIC(Performed 11/29/2022) Performed for Pre-transplant evaluation [...] 04/11/2022) Performed for End stage renal disease ([facility]) * CBC W/O DIFFERENTIAL(Performed 02/22/2022) Performed for ESRD (end stage renal disease) ([facility]) * PHOSPHORUS BLOOD(Performed 02/22/2022) Performed for ESRD (end stage renal disease) ([facility]) * MAGNESIUM BLOOD(Performed 02/22/2022) Performed for ESRD (end stage renal disease) ([facility]) * BASIC METABOLIC PANEL (CALCIUM TOTAL)(Performed 02/22/2022) Performed for ESRD (end stage renal disease) ([facility]) * ENDOTRACHEAL TUBE NOTE(Performed 02/21/2022) * CREATION ARTERIOVENOUS (AV) FISTULA WITH/WITHOUT GRAFT(Performed 02/21/2022) Performed for End stage renal disease on dialysis ([facility]) * TRANSFUSE PLATELETS IN ML(S)(Performed 02/21/2022) * PREPARE PLATELET PHERESIS UNIT(S)(Performed 02/21/2022) Performed for Pancytopenia ([facility]) * TYPE + SCREEN PANEL(Performed 02/21/2022) Performed [...] Stage 5 chronic kidneydisease on chronic dialysis ([facility]) * EKG 12-LEAD(Performed 08/09/2021) Performed for Altered mental status, unspecified altered mental status type, Stage 5 chronic kidneydisease on chronic dialysis ([facility]) * XR CHEST 2VW(Performed 08/09/2021) Performed for Altered mental status, unspecified altered mental status type, Stage 5 chronic kidneydisease on chronic dialysis ([facility]) * CARDIAC EKG ORDER(Performed 07/21/2021) * PHOSPHORUS BLOOD(Performed 07/20/2021) * MAGNESIUM BLOOD(Performed 07/20/2021) * BASIC METABOLIC PANEL (CALCIUM TOTAL)(Performed 07/20/2021) * CBC W/O DIFFERENTIAL(Performed 07/20/2021) * GLUCOSE - POINT OF CARE(Performed 07/20/2021) * GLUCOSE - POINT OF CARE(Performed 07/20/2021) * MRI BRAIN WO CONTRAST(Performed 07/19/2021) Performed for Weakness, Hemineglect, ESRD (end stage renal disease) ([facility]), Facial droop * TROPONIN I(Performed 07/19/2021) * TROPONIN I(Performed 07/19/2021) * XR ABDOMEN KUB PORTABLE(Performed 07/19/2021) Performed for Weakness, Hemineglect, ESRD (end stage renal disease) ([facility]), Facial droop * SARS-COV-2 (COVID-19)+INFLU A+B PCR [...] bleeding, unspecified esophageal varices type (HCC) * OK COLONOSCOPY, DIAGNOSTIC(Performed 01/12/2020) Performed for Esophageal varices without bleeding, unspecified esophageal varices type (HCC) * OK ED EGD FLEX TRANSORAL DX(Performed 01/12/2020) Performed [...] Dialysis patient (HCC), H/O ETOH abuse * DNQQL-0-OFUUBUKCJKW BLOOD PHENOTYPING PANEL(Performed 10/08/2019) Performed for Pre-transplant [...] 04/18/2019) * COMPREHENSIVE METABOLIC PANEL(Performed 04/18/2019) * OK ED EGD FLEX TRANSORAL DX(Performed 04/14/2019) Performed [...] DIFFERENTIAL(Performed 03/07/2019) * HEMODIALYSIS INPATIENT(Performed 03/07/2019) * OK ED EGD FLEX TRANSORAL DX(Performed 03/07/2019) Performed [...] 01/24/2019) * CULTURE URINE(Performed 01/24/2019) * CYTOLOGY NON-PAY STATION DEPARTMENT MANAGER PANEL (STL)(Performed 01/24/2019) Performed for Decompensated hepatic [...] (ABNORMAL) COMPREHENSIVE METABOLIC PANEL (08/05/2024 2:28 PM CLUTCH INSPECTOR) Only the most recent of69 resultswithin the time period is included. BUN 33(H) 7 - 26 mg/dL 08/05/2024 3:15 PM [facility] Creatinine 5.66(H) 0.71 - 1.16 mg/dL 08/05/2024 3:15 PM [facility] Sodium 138 136 - 145 mmol/L 08/05/2024 3:15 PM [facility] Potassium See Comment 3.5 - 4.5 mmol/L 08/05/2024 3:15 PM [facility] Comment:Significant hemolysi s detected in this specimen. Recommend repeat testing if clinically indicated. Chloride 101 98 - 107 mmol/L 08/05/2024 3:15 PM [facility] CO2 25 22 - 29 mmol/L 08/05/2024 3:15 PM [facility] Glucose 93 70 - 99 mg/dL 08/05/2024 3:15 PM [facility] Calcium 9.0 8.4 - 10.2 mg/dL 08/05/2024 3:15 PM [facility] Protein Total See Comment 6.0 - 8.3 g/dL 08/05/2024 3:15 PM [facility] Comment:Significant hemolysi s detected in this specimen. Hemolysis leads to artifactual elevations of this analyte. The result has been suppressed. Please reorder test and submit a new specimen if clinically indicated. Page Safety Attendant of Clinical Chemistry ([phone]) if you suspect in vivo hemolysis. Albumin 3.3(L) 3.4 - 5.0 g/dL 08/05/2024 3:15 PM [facility] Bilirubin Total 1.3(H) 0.2 - 1.2 mg/dL 08/05/2024 3:15 PM [facility] Alkaline Phosphatase 149 40 - 150 U/L 08/05/2024 3:15 PM [facility] ALT 14 5 - 55 U/L 08/05/2024 3:15 PM [facility] AST See Comment 5 - 34 Units/L 08/05/2024 3:15 PM [facility] Comment: Significant hemolysis detected in this specimen. Hemolysis leads to artifactual elevations of this analyte. The result has been suppressed. Please reorder test and submit a new specimen if clinically indicated. Page Safety Attendant of Clinical Chemistry ([phone]) if you suspect in vivo hemolysis. BUN/Creatinine Ratio 6(L) 7 - 23 08/05/2024 3:15 PM [facility] Osmolality Calculated 293 275 - 295 mOsm/kg 08/05/2024 3:15 PM [facility] Albumin/Globuli n Ratio 0.8(L) 1.1 - 2.3 08/05/2024 3:15 PM [facility] eGFR by CKD-EPI 11(L) >=90 mL/min/1. 73 m2 08/05/2024 3:15 PM [facility] Blood BLOOD SPECIMEN / Unknown Venipuncture / Unknown 08/05/2024 2:28 PM CLUTCH INSPECTOR 08/05/2024 2:43 PM CLUTCH INSPECTOR Amina Carrera AIRPORT REPRESENTATIVE-[facility] LAB - CHEMIS TRY ORDERABLES [address] [address], [facility] [phone] * GLUCOSE - POINT OF CARE (08/05/2024 2:27 PM CLUTCH INSPECTOR) Only the most recent of22 resultswithin the time period is included. Glucose WB/POC 99 70 - 99 mg/dL 08/05/2024 9:01 PM [facility] Specimen Type Venous 08/05/2024 9:01 PM [facility] Blood BLOOD SPECIMEN / Unknown 08/05/2024 2:27 PM CLUTCH INSPECTOR 08/05/2024 9:01 PM CLUTCH INSPECTOR Provider Unknown LAB - POINT OF CARE ORDERABLES [facility] [address] [place] [address], [facility] [phone] * (ABNORMAL) PT-INR [facility] (07/24/2024 7:38 AM CLUTCH INSPECTOR) Only the most recent of67 resultswithin the time period is included. PT 17.6(H) 12.1 - 14.8 Seconds 07/24/2024 8:36 AM [facility] INR 1.5 See Comment 07/24/2024 8:36 AM [facility] Comment:The suggested therap eutic range for standard coumadin (warfarin) therapy is an INR of 2.0-3.0. For high-risk patients (Mechanical Mitral Valve Prosthesis, etc.), the suggested prophylactic therapeutic range is an INR of 2.5-3.5. Blood BLOOD SPECIMEN / Unknown Lab Venipuncture / Unknown 07/24/2024 7:38 AM CLUTCH INSPECTOR 07/24/2024 8:11 AM CLUTCH INSPECTOR Melecio Graves MD LAB - COAGULATION OR DERABLES Performing Organization Address [facility] de Phone Number [facility] [address] [place] [address], [facility] [phone] * (ABNORMAL) DIFFERENTIAL MANUAL (07/24/2024 7:38 AM CLUTCH INSPECTOR) Only the most recent of3 resultswithin the time period is included. Neutrophil % 73 41 - 74 % 07/24/2024 10:44 AM [facility] Lymphocyte % 15(L) 17 - 47 % 07/24/2024 10:44 AM [facility] Monocyte % 7 3 - 11 % 07/24/2024 10:44 AM [facility] Eosinophil % 4 0 - 7 % 07/24/2024 10:44 AM [facility] Basophil % 1 0 - 2 % 07/24/2024 10:44 AM [facility] Neutrophil Absolute 2.34 1.60 - 7.50 x10E9/L 07/24/2024 10:44 AM [facility] Lymphocyte Absolute 0.48(L) 1.00 - 4.40 x10E9/L 07/24/2024 10:44 AM [facility] Monocyte Absolute 0.22 0.15 - 1.00 x10E9/L 07/24/2024 10:44 AM [facility] Eosinophil Absolute 0.13 0.00 - 0.60 x10E9/L 07/24/2024 10:44 AM [facility] Basophil Absolute 0.03 0.00 - 0.13 x10E9/L 07/24/2024 10:44 AM [facility] RBC Morphology REVIEWED 07/24/2024 10:44 AM [facility] Blood BLOOD SPECIMEN / Unknown Lab Venipuncture / Unknown 07/24/2024 7:38 AM CLUTCH INSPECTOR 07/24/2024 8:13 AM CLUTCH INSPECTOR Melecio Graves MD LAB - HEMATOLOGY ORD ERABLES [facility] [address] [place] [address], [facility] [phone] * (ABNORMAL) CBC W/ DIFFERENTIAL (07/24/2024 7:38 AM CLUTCH INSPECTOR) Only the most recent of60 resultswithin the time period is included. WBC 3.2(L) 4.0 - 10.7 x10E9/L 07/24/2024 10:44 AM [facility] RBC Count 2.83(L) 4.30 - 5.80 x10E12/L 07/24/2024 10:44 AM [facility] Hemoglobin 9.3(L) 13.3 - 17.5 g/dL 07/24/2024 10:44 AM [facility] Hematocrit 27.9(L) 38.7 - 51.1 % 07/24/2024 10:44 AM [facility] MCV 98.6(H) 80.0 - 98.0 fL 07/24/2024 10:44 AM [facility] MCH 32.9 26.7 - 33.6 pg 07/24/2024 10:44 AM [facility] MCHC 33.3 31.7 - 36.3 g/dL 07/24/2024 10:44 AM [facility] RDW-CV 16.8(H) 11.3 - 14.8 % 07/24/2024 10:44 AM [facility] Platelet Count 48(L) 150 - 420 x10E9/L 07/24/2024 10:44 AM [facility] MPV 10.3 7.8 - 11.4 fL 07/24/2024 10:44 AM [facility] Blood BLOOD SPECIMEN / Unknown Lab Venipuncture / Unknown 07/24/2024 7:38 AM CLUTCH INSPECTOR 07/24/2024 8:13 AM [facility] Narrative [facility] - 07/24/2024 10:44 AM CLUTCH INSPECTOR A previously reported component NEUT % is [...] Graves MD LAB - HEMATOLOGY ORD ERABLES [address] [address], [facility] [phone] * APHERESIS/TRANSFUSION ORDER (07/14/2024 1:38 PM CLUTCH INSPECTOR) Only the most recent of4 resultswithin the time period is included. Narrative 07/14/2024 1:38 PM CLUTCH INSPECTOR Ordered by an unspecified provider. Scanned Document NURSING - VITAL SIGN S AND ASSESSMENT * PREPARE (CROSSMATCH) RBC UNIT(S), 1 Units (07/12/2024 1:17 AM CLUTCH INSPECTOR) Only the most recent of10 resultswithin the time period is included. Unit Description AS1 LR PRBC [facility] BLOOD BANK LAB Unit ABO O [facility] BLOOD BANK LAB Unit Rh NEG [facility] BLOOD BANK LAB Product Number R02 [facility] Denis LOOD BANK LAB Unit Donor # [id number] [facility] BLOOD BANK LAB Unit Status released [facility] BLOO D BANK LAB Product Code [id number] [facility] BLO OD BANK LAB Blood Type Barcode 9500 [facility] BLOOD BANK LAB Expiration Date [id number] S BLOOD BANK LAB Blood Bank BLOOD SPECIMEN / Unknown 07/11/2024 6:01 AM CLUTCH INSPECTOR Pawan Lynn DO LAB - BLOOD BANK ORDERABLES [facility] BLOOD BANK LAB [address] [place] [address], [facility] [phone] * TRANSFUSE PLATELET PHERESIS UNIT(S) (07/11/2024 9:19 AM CLUTCH INSPECTOR) Pawan Lynn DO NURSING - BLOOD P BETTIE TRANSFUSION * PATHOLOGY TISSUE (07/11/2024 8:43 AM CLUTCH INSPECTOR) Only the most recent of2 resultswithin the time period is included. Case Report Surgical Pathology Report Case: [id number] Authorizing Provider: Theron Medellin MD Collected: 07/11/2024 08:43 AM Ordering Location: [facility] Received: 07/11/2024 10:55 AM Pathologist: Bonnie Rene MD Specimen: Hernia Sac, RIGHT INGUINAL HERNIA SAC 07/14/2024 1:00 PM [facility] Final Diagnosis Soft tissue, right inguinal hernia sac, excision (A): - Fibrosis, reactive changes, and extensive hemosiderin deposition 07/14/2024 1:00 PM [facility] Microscopic Description and Comment Microscopic examination substantiates the final diagnosis. 07/14/2024 1:00 PM [facility] Clinical History The patient is a 58-year-old man with right inguinal hernia. Operative procedure: Repair 07/14/2024 1:00 PM [facility] Gross Description The [...] layer. There are no additional gross lesions. Software Tools Engineer sections are submitted in cassette A1. IKD 07/14/2024 1:00 PM [facility] Pathologist Location at [facility] 07/14/2024 1:00 PM [facility] Disclaimer The performance characteristics of all immunohistochemical and indirect immunofluorescence stains (if any) cited in this report were determined by the Histopathology Laboratory of [facility]. Some of these tests were [...] the attending (teaching) pathologist. 07/14/2024 1:00 PM [facility] Embedded Images 07/14/2024 1:00 PM [facility] Biopsy, Excision HERNIA SAC / Unknown 07/11/2024 8:43 AM CLUTCH INSPECTOR 07/11/2024 10:55 AM CLUTCH INSPECTOR Comment:Pre-op diagnosis: symptomatic right inguinal hernia Theron Medellin MD LAB - PATHOLOGY/CYTO LOGY ORDERABLES [facility] LAB [address] [phone] * ETT LINE PERFORMABLE (07/11/2024 7:55 AM CLUTCH INSPECTOR) Narrative Kayla Joyce Anes Asst - 07/11/2024 7:55 AM CLUTCH INSPECTOR Kayla Joyce Anes Asst 07/11/2024 7:55 AM Endotracheal Tube Placement: Patient Location: OR. Intubation Event Date/Time: 07/11/2024 7:40 AM Procedure: intubation ([id number]) Procedure Section: Sedation: under general anesthesia. Indications [...] PHERESIS UNIT(S), 1 Units (07/11/2024 6:54 AM CLUTCH INSPECTOR) Only the most recent of10 resultswithin the time period is included. [facility] Unit Description LR PLT Phere B7 [facility] BLOOD BANK LAB Unit ABO O [facility] BLOOD BANK LAB Unit Rh POS [facility] BLOOD BANK LAB Product Number P27 [facility] B LOOD BANK LAB Unit Donor # [id number] [facility] BLOOD BANK LAB Unit Status transfused [facility] BLO OD BANK LAB Product Code [id number] [facility] BLO OD BANK LAB Blood Type Barcode 5100 [facility] BLOOD BANK LAB Expiration Date [id number] S BLOOD BANK LAB Blood Bank BLOOD SPECIMEN / Unknown 07/11/2024 6:01 AM CLUTCH INSPECTOR Pawan Lynn DO LAB - BLOOD BANK ORDERABLES [facility] BLOOD BANK LAB [address] [place] [address], [facility] [phone] * TYPE + SCREEN PANEL (07/11/2024 5:57 AM CLUTCH INSPECTOR) Only the most recent of19 resultswithin the time period is included. [facility] Antibody Screen NEG 6:49 AM CLUTCH INSPECTOR [facility] BLOOD BANK LAB ABO Rh O NEG 07/11/2024 6:49 AM CLUTCH INSPECTOR [facility] BLOOD BANK LAB Blood Bank BLOOD SPECIMEN / Unknown Line Draw / Unknown 07/11/2024 5:57 AM CLUTCH INSPECTOR 07/11/2024 6:01 AM CLUTCH INSPECTOR Zoe Arevalo APRN-[facility] LAB - BLOOD B ANK ORDERABLES Performing Organization Address City/[facility]/ZIP Co de Phone Number [facility] BLOOD BANK LAB [address] [place] [address], [facility] [phone] * POTASSIUM WHOLE BLD (07/11/2024 5:57 AM CLUTCH INSPECTOR) Only the most recent of3 resultswithin the time period is included. Pathologist [facility] Potassium Whole Blood 4.2 3.5 - 5.5 mmol/L 07/11/2024 6:14 AM [facility] Blood WHOLE BLOOD SPECIMEN / Unknown Line Draw / Unknown 07/11/2024 5:57 AM CLUTCH INSPECTOR 07/11/2024 6:04 AM CLUTCH INSPECTOR Zoe Arevalo APRN-[facility] - WEAVING PROFESSOR RY ORDERABLES Performing Organization Address City/[facility]/ZIP Co de Phone Number [facility] LABORATORY [facility] [address] [place] [address], [facility] [phone] * (ABNORMAL) CBC W/O DIFFERENTIAL (06/14/2024 12:37 AM CLUTCH INSPECTOR) Only the most recent of35 resultswithin the time period is included. WBC 1.5(L) 4.0 - 10.7 x10E9/L 06/14/2024 1:57 AM [facility] RBC Count 2.29(L) 4.30 - 5.80 x10E12/L 06/14/2024 1:57 AM [facility] Hemoglobin 7.3(L) 13.3 - 17.5 g/dL 06/14/2024 1:57 AM [facility] Hematocrit 21.4(L) 38.7 - 51.1 % 06/14/2024 1:57 AM [facility] MCV 93.4 80.0 - 98.0 fL 06/14/2024 1:57 AM [facility] MCH 31.9 26.7 - 33.6 pg 06/14/2024 1:57 AM [facility] MCHC 34.1 31.7 - 36.3 g/dL 06/14/2024 1:57 AM [facility] RDW-CV 17.8(H) 11.3 - 14.8 % 06/14/2024 1:57 AM [facility] Platelet Count 33(L) 150 - 420 x10E9/L 06/14/2024 1:57 AM [facility] MPV 10.7 7.8 - 11.4 fL 06/14/2024 1:57 AM [facility] Blood BLOOD SPECIMEN / Unknown Lab Venipuncture / Unknown 06/14/2024 12:37 AM CLUTCH INSPECTOR 06/14/2024 1:18 AM [facility] Melecio Graves MD LAB - HEMATOLOGY ORD ERABLES [facility] [address] [place] [phone], [facility] [phone] * (ABNORMAL) BASIC METABOLIC PANEL (CALCIUM TOTAL) (06/14/2024 12:37 AM [facility]) Only the most recent of14 resultswithin the time period is included. BUN 21 7 - 26 mg/dL 06/14/2024 2:18 AM [facility] Creatinine 5.45(H) 0.71 - 1.16 mg/dL 06/14/2024 2:18 AM [facility] Sodium 139 136 - 145 mmol/L 06/14/2024 2:18 AM [facility] Potassium 4.3 3.5 - 4.5 mmol/L 06/14/2024 2:18 AM [facility] Chloride 99 98 - 107 mmol/L 06/14/2024 2:18 AM [facility] CO2 30(H) 22 - 29 mmol/L 06/14/2024 2:18 AM [facility] Glucose 84 70 - 99 mg/dL 06/14/2024 2:18 AM [facility] Calcium 8.1(L) 8.4 - 10.2 mg/dL 06/14/2024 2:18 AM [facility] Anion Gap 10 6 - 16 06/14/2024 2:18 AM [facility] BUN/Creatinine Ratio 4(L) 7 - 23 06/14/2024 2:18 AM [facility] Osmolality Calculated 290 275 - 295 mOsm/kg 06/14/2024 2:18 AM [facility] eGFR by CKD-EPI 11(L) >=90 mL/min/1.7 3 m2 06/14/2024 2:18 AM [facility] Blood BLOOD SPECIMEN / Unknown Lab Venipuncture / Unknown 06/14/2024 12:37 AM CLUTCH INSPECTOR 06/14/2024 1:19 AM CLUTCH INSPECTOR Melecio Graves MD LAB - CHEMISTRY FREDO CHAVES Performing Organization Address City/[facility]/ZIP Co de Phone Number [address] [address], [place] [phone] * MAGNESIUM BLOOD (06/14/2024 12:37 AM CLUTCH INSPECTOR) Only the most recent of40 resultswithin the time period is included. Magnesium 1.8 1.6 - 2.6 mg/dL 06/14/2024 1:49 AM [facility] Blood BLOOD SPECIMEN / Unknown Lab Venipuncture / Unknown 06/14/2024 12:37 AM CLUTCH INSPECTOR 06/14/2024 1:19 AM CLUTCH INSPECTOR Melecio Graves MD LAB - CHEMISTRY FREDO CHAVES [facility] [address] [place] [id number], [place] [phone] * TRANSFUSE RED BLOOD CELL LEUKOREDUCED UNIT(S) (06/13/2024 5:43 PM [employer] INS[employer]) Melecio Graves MD NURSING - BLOOD PROD TRANSFUSION * (ABNORMAL) HEPATIC FUNCTION PANEL (06/13/2024 8:48 AM [employer] INSPECT[employer]) Only the most recent of4 resultswithin the time period is included. Pathologist [facility] Protein Total 5.7(L) 6.0 - 8.3 g/dL 9:48 AM [facility] Albumin 2.3(L) 3.4 - 5.0 g/dL 06/13/2024 9:48 AM [facility] Bilirubin Total 1.5(H) 0.2 - 1.2 mg/dL 06/01 9:48 AM [facility] Bilirubin Conjugated 0.9(H) 0.1 - 0.5 mg/dL 06/13/2024 9:48 AM [facility] Bilirubin Unconjugated 0.6 Unconjugated Bilirubin is a calculated value: Reference ranges have not been established. mg/dL 06/13/2024 9:48 AM [facility] Alkaline Phosphatase 77 40 - 150 U/L 06/13/2024 9:48 AM [facility] ALT 7 5 - 55 U/L 06/13/2024 9:48 AM [facility] AST 27 5 - 34 U/L 06/13/2024 9:48 AM [facility] Albumin/Globulin Ratio 0.7(L) 1.1 - 2.3 06/13/2024 9:48 AM [facility] Blood BLOOD SPECIMEN / Unknown Lab Venipuncture / Unknown 06/13/2024 8:48 AM [employer] 06/13/2024 9:18 AM [facility] Melecio Graves MD LAB - CHEMISTRY [facility] Organization Address City/State/[facility] Co de Phone Number [facility] [address] [place] [phone], [facility] [phone] * FOLATE (06/13/2024 8:48 AM CLUTCH INSPECTOR) Only the most recent of3 resultswithin the time period is included. Pathologist [facility] Folate 8.5 7.0 - 31.4 ng/mL 06/13/2024 10:20 AM [facility] Blood BLOOD SPECIMEN / Unknown Lab Venipuncture / Unknown 06/13/2024 8:48 AM CLUTCH INSPECTOR 06/13/2024 9:18 AM CLUTCH INSPECTOR Melecio Graves MD LAB - CHEMISTRY FREDO CHAVES Performing Organization Address City/[facility]/ZIP Co de Phone Number [address] [address], [place] [phone] * (ABNORMAL) VITAMIN B12 (06/13/2024 8:48 AM CLUTCH INSPECTOR) Only the most recent of3 resultswithin the time period is included. Vitamin B12 1,274(H) 213 - 816 pg/mL 06/13/2024 10:20 AM CLUTCH INSPECTOR [facility] Blood BLOOD SPECIMEN / Unknown Lab Venipuncture / Unknown 06/13/2024 8:48 AM CLUTCH INSPECTOR 06/13/2024 9:18 AM CLUTCH INSPECTOR Melecio Graves MD LAB - CHEMISTRY FREDO CHAVES Performing Organization Address [facility] Co de Phone Number [address] [address], [place] [phone] * (ABNORMAL) PTH INTACT W/O CALCIUM (06/12/2024 1:23 AM CLUTCH INSPECTOR) Only the most recent of6 resultswithin the time period is included. Pathologist [facility] PTH Intact 407.3(H) 8.0 - 77.0 pg/mL 06/12/2024 2:23 AM CLUTCH INSPECTOR [facility] Blood BLOOD SPECIMEN / Unknown Lab Venipuncture / Unknown 06/12/2024 1:23 AM CLUTCH INSPECTOR 06/12/2024 1:42 AM CLUTCH INSPECTOR Melecio Graves MD LAB - CHEMISTRY FREDO CHAVES [address] [address], [place] [phone] * (ABNORMAL) IRON + TRANSFERRIN PANEL (06/12/2024 1:23 AM CLUTCH INSPECTOR) Only the most recent of2 resultswithin the time period is included. Iron 48(L) 50 - 175 ug/dL 06/12/2024 2:20 AM [facility] Transferrin 79(L) 174 - 382 mg/dL 06/12/2024 2:20 AM [facility] Transferrin Saturation % 49 16 - 50 % 06/12/2024 2:20 AM [facility] TIBC Calculated 99(L) 240 - 450 ug/dL 06/12/2024 2:20 AM [facility] Blood BLOOD SPECIMEN / Unknown Lab Venipuncture / Unknown 06/12/2024 1:23 AM CLUTCH INSPECTOR 06/12/2024 1:42 AM CLUTCH INSPECTOR Melecio Graves MD LAB - CHEMISTRY FREDO CHAVES Performing Organization Address City/[facility]/ZIP Co de Phone Number [facility] [address] [place] [phone], [facility] [phone] * (ABNORMAL) FERRITIN (06/12/2024 1:23 AM CLUTCH INSPECTOR) Only the most recent of5 resultswithin the time period is included. Ferritin 938(H) 22 - 275 ng/mL 06/12/2024 2:37 AM [facility] Blood BLOOD SPECIMEN / Unknown Lab Venipuncture / Unknown 06/12/2024 1:23 AM CLUTCH INSPECTOR 06/12/2024 1:42 AM CLUTCH INSPECTOR Melecio Graves MD LAB - CHEMISTRY FREDO CHAVES Performing Organization Address City/[facility]/ZIP Co de Phone Number [facility] [address] [place] [address], [place] [phone] * EKG 12-LEAD (06/11/2024 7:45 PM CLUTCH INSPECTOR) Only the most recent of10 resultswithin the time period is included. Ventricular Rate 59 BPM [facility] Atrial Rate 59 BPM [facility] P-R Interval 242 ms [facility] QRS Duration ms 102 ms [facility] Q-T Interval ms 492 ms [facility] QTC Calculation (Bezet) 487 ms [facility] Calculated P [place] 72 degrees [facility] Calculated R [place] 62 degrees [facility] Calculated T [place] 74 degrees [facility] Interpretation EKG SINUS BRADYCARDIA WITH 1ST DEGREE A-V BLOCK T WAVE ABNORMALITY, CONSIDER ANTERIOR ISCHEMIA ABNORMAL ECG Confirmed by LEILANI ROJAS MD ([id number]) on 06/13/2024 1:39:21 PM [facility] 06/11/2024 7:45 PM CLUTCH INSPECTOR 06/13/2024 1:39 PM CLUTCH INSPECTOR Melecio Graves MD ECG ORDERABLES [facility] * CT Knee Right Wo Contrast (06/11/2024 5:55 PM CLUTCH INSPECTOR) Anatomical Region Laterality Modality Lower Extremity Computed Tomogra phy 06/11/2024 6:16 PM CLUTCH INSPECTOR Impressions 06/12/2024 12:48 AM CLUTCH INSPECTOR IMPRESSION: 1.There is an osteochondral defect of [...] > Dictated by Sandro Bro DO (physician vice president). I, Chad Renner MD have personally reviewed and interpreted this examination/study. > Interpreting Provider: Chad Renner MD on 06/12/2024 12:48 AM Narrative 06/12/2024 12:48 AM CLUTCH INSPECTOR PROCEDURE: CT KNEE RIGHT WO CONTRAST DATE/TIME [...] > Dictated by Sandro Bro DO (physician vice president). I, Chad Renner MD have personally reviewed and interpreted this examination/study. > Interpreting Provider: Chad Renner MD on 06/12/2024 12:48 AM Minerva Ventura MD CT ORDERABLES * XR Knee Right 3Vw (06/11/2024 3:41 PM CLUTCH INSPECTOR) Only the most recent of2 resultswithin the time period is included. Anatomical Region Laterality Modality Lower Extremity Digital Radiogra phy 06/11/2024 3:37 PM CLUTCH INSPECTOR Impressions 06/11/2024 3:56 PM CLUTCH INSPECTOR IMPRESSION: Increase in size of moderate suprapatellar joint effusion. No acute fracture or dislocation. No radiographic evidence of osteomyelitis. Soft tissue swelling. Report dictated by Zahida Catalan MD, (physician vice president). Elzbieta Silva MD have personally reviewed and interpreted this examination/study. > Interpreting Provider: Elzbieta Woodard MD on 06/11/2024 3:56 PM Narrative 06/11/2024 3:56 PM CLUTCH INSPECTOR PROCEDURE: XR KNEE RIGHT 3VW DATE/TIME OF [...] Report dictated by Zahida Catalan MD, (physician vice president). Elzbieta Silva MD have personally reviewed and interpreted this examination/study. > Interpreting Provider: Elzbieta Woodard MD on 06/11/2024 3:56 PM Hany Whyte MD DIAGNOSTIC IMAGING O RDERABLES * (ABNORMAL) C-REACTIVE PROTEIN (06/11/2024 8:18 AM CLUTCH INSPECTOR) Only the most recent of2 resultswithin the time period is included. C-Reactive Protein 4.6(H) <=0.5 mg/dL 06/11/2024 8:57 AM CLUTCH INSPECTOR [facility] Blood BLOOD SPECIMEN / Unknown Venipuncture / Unknown 06/11/2024 8:18 AM CLUTCH INSPECTOR 06/11/2024 8:25 AM CLUTCH INSPECTOR Chivo Agudelo MD LAB - CHEMISTRY ORDE ANASTACIO [address] [address], [facility] [phone] * (ABNORMAL) ERYTHROCYTE SEDIMENTATION RATE (06/11/2024 8:18 AM CLUTCH INSPECTOR) Only the most recent of2 resultswithin the time period is included. Pathologist [facility] Erythrocyte Sedimentation Rate Westergren 31(H) 0 - 20 MM/HR 06/11/2024 10:12 AM CLUTCH INSPECTOR [facility] Blood BLOOD SPECIMEN / Unknown Venipuncture / Unknown 06/11/2024 8:18 AM CLUTCH INSPECTOR 06/11/2024 8:25 AM CLUTCH INSPECTOR Chivo Agudelo MD LAB - HEMATOLOGY ORD ERAAMIRA [address] [address], [facility] [phone] * PHOSPHORUS BLOOD (06/11/2024 8:18 AM CLUTCH INSPECTOR) Only the most recent of41 resultswithin the time period is included. Phosphorus 3.7 2.8 - 5.1 mg/dL 06/11/2024 8:57 AM CLUTCH INSPECTOR [facility] Blood BLOOD SPECIMEN / Unknown Venipuncture / Unknown 06/11/2024 8:18 AM CLUTCH INSPECTOR 06/11/2024 8:25 AM CLUTCH INSPECTOR Chivo Agudelo MD LAB - CHEMISTRY ORDE RABLES Performing Organization Address City/[facility]/ZIP Co de Phone Number [facility] [address] [place] [address], [place] [phone] * (ABNORMAL) BILIRUBIN DIRECT (05/28/2024 6:51 AM CLUTCH INSPECTOR) Only the most recent of10 resultswithin the time period is included. Bilirubin Conjugated 0.7(H) 0.1 - 0.5 mg/dL 05/28/2024 7:44 AM CLUTCH INSPECTOR [facility] Blood BLOOD SPECIMEN / Unknown Lab Venipuncture / Unknown 05/28/2024 6:51 AM CLUTCH INSPECTOR 05/28/2024 7:09 AM CLUTCH INSPECTOR Sanjuana Salazar MD LAB - CHEMISTRY FREDO SVENRADHA Performing Organization Address [facility]/ZIP Co de Phone Number [facility] [address] [place] [address], [facility] [phone] * XR Panorex (05/24/2024 2:12 PM CLUTCH INSPECTOR) Only the most recent of4 resultswithin the time period is included. Anatomical Region Laterality Modality Head Radiographic Cindy ging 05/25/2024 8:00 AM CLUTCH INSPECTOR Impressions 05/25/2024 11:44 PM CLUTCH INSPECTOR IMPRESSION: Motion artifact degrades image quality, within exam limitations. Consider performing this study again. Nonspecific radiolucency of the right paramedian mandible. Otherwise no evidence of periapical abscess. Report dictated by Judy Muller Dr, MD (physician vice president). I, Sonja Sanders MD have personally reviewed and interpreted this examination/study. > Interpreting Provider: Sonja Sanders MD on 05/25/2024 11:44 PM Narrative 05/25/2024 11:44 PM CLUTCH INSPECTOR PROCEDURE: XR PANOREX, DATE/TIME OF EXAM: 05/24/2024 2:13 PM, LOCATION [facility] INDICATION: M00.861: Arthritis of right knee due [...] OF EXAM: 05/24/2024 2:13 PM, LOCATION [facility] INDICATION: M00.861: Arthritis of right knee due [...] dictated by Judy Muller Dr, MD (physician vice president). I, Sonja Sanders MD have personally reviewed and interpreted this examination/study. > Interpreting Provider: Sonja Sanders MD on 05/25/2024 11:44 PM Uli Murphy MD DIAGNOSTIC IMAGING O RDERABLES * (ABNORMAL) VITAMIN D 25-HYDROXY (05/23/2024 3:23 AM CLUTCH INSPECTOR) Only the most recent of5 resultswithin the time period is included. Vitamin D, 25 Hydroxy 16.4(L) 30.0 - 80.0 ng/mL 05/23/2024 8:10 AM CLUTCH INSPECTOR [facility] Comment: The recommendations for 25-Hydroxy [...] Lab Venipuncture / Unknown 05/23/2024 3:23 AM CLUTCH INSPECTOR 05/23/2024 4:04 AM CLUTCH INSPECTOR Uli Murphy MD LAB - CHEMISTRY FREDO CHAVES [facility] [address] [place] [address], [place] [phone] * VANCOMYCIN LEVEL RANDOM (05/23/2024 3:23 AM CLUTCH INSPECTOR) Only the most recent of3 resultswithin the time period is included. Pathologist [facility] Vancomycin Random 19.8 Therapeutic Ranges not established for random specimens ug/mL 05/23/2024 4:24 AM CLUTCH INSPECTOR [facility] Blood BLOOD SPECIMEN / Unknown Lab Venipuncture / Unknown 05/23/2024 3:23 AM CLUTCH INSPECTOR 05/23/2024 3:59 AM CLUTCH INSPECTOR Narrative [facility] - 05/23/2024 4:24 AM CLUTCH INSPECTOR See institution protocol. Uli Murphy MD LAB - CHEMISTRY FREDO CHAVES Performing Organization Address [facility]/ZIP Co de Phone Number [address] [address], [place] [phone] * CHLAMYDIA + GC AMPLIFIED PROBE (05/22/2024 1:26 PM CLUTCH INSPECTOR) Chlamydia Amplified Probe Negative Negative 05/22/2024 8:38 PM CLUTCH INSPECTOR [facility] GC Amplified Probe Negative Negative 05/22/2024 8:[address] [facility] Microbiology ENTIRE PHARYNX / Unknown Collection / Unknown 05/22/2024 1:26 PM CLUTCH INSPECTOR 05/22/2024 1:31 PM CLUTCH INSPECTOR Narrative [facility] - 05/22/2024 8:38 PM CLUTCH INSPECTOR Results based on detection/no detection of ribosomal RNA by amplified method. Uli Murphy MD LAB - MICROBIOLOGY O RDERABLES [facility] [address] [place] [address], [facility] [phone] * CULTURE BLOOD (05/22/2024 9:38 AM CLUTCH INSPECTOR) Only the most recent of6 resultswithin the time period is included. [facility] Culture No growth day 5 LEANNE 05/27/2024 2:[address] [facility] Blood PERIPHERAL BLOOD / Unknown Lab Venipuncture / Unknown 05/22/2024 9:38 AM CLUTCH INSPECTOR 05/22/2024 10:03 AM CLUTCH INSPECTOR Uli Murphy MD LAB - MICROBIOLOGY O RDERABLES Performing Organization Address City/[facility]/ZIP Co de Phone Number [facility] [address] [facility] [place] [address], [facility] [phone] * HEPATITIS C AB SCREEN RFLX NAAT QUANT (05/21/2024 2:29 AM CLUTCH INSPECTOR) Only the most recent of2 resultswithin the time period is included. [facility] Hepatitis C Antibody Non-react jaden Non-reac tive 05/22/2024 8:44 AM CLUTCH INSPECTOR [facility] Comment:Hepatitis C Antibody screen indicates [...] Lab Venipuncture / Unknown 05/21/2024 2:29 AM CLUTCH INSPECTOR 05/21/2024 3:08 AM CLUTCH INSPECTOR Uli Murphy MD LAB - CHEMISTRY FREDO CHAVES [facility] [address] [place] [phone], [facility] [phone] * SYPHILIS ANTIBODY CASCADING REFLEX (05/21/2024 2:29 AM CLUTCH INSPECTOR) Only the most recent of5 resultswithin the time period is included. [facility] Treponema pallidum Antibody Non-react jaden Non-react jaden 05/22/2024 8:44 AM [facility] Comment: No Laboratory evidence of syphilis infection. Note: Circulating antibodies may be low or undetectable in early infection. If recent exposure is suspected, re-draw sample in 2-4 weeks and repeat testing. Blood BLOOD SPECIMEN / Unknown Lab Venipuncture / Unknown 05/21/2024 2:29 AM CLUTCH INSPECTOR 05/21/2024 3:08 AM CLUTCH INSPECTOR Uli Murphy MD LAB - SEROLOGY ORDER MALIHA Performing Organization Address City/[facility]/ZIP Co de Phone Number [address] [address], [place] [phone] * HIV-1 HIV-2 ANTIBODY + HIV P24 AG PANEL (05/21/2024 2:29 AM CLUTCH INSPECTOR) Only the most recent of3 resultswithin the time period is included. HIV Antigen/Antibod y 1 & 2 Non-reacti ve Non-react jaden 05/22/2024 8:44 AM [facility] Comment:No Laboratory eviden ce of HIV infection. Blood BLOOD SPECIMEN / Unknown Lab Venipuncture / Unknown 05/21/2024 2:29 AM CLUTCH INSPECTOR 05/21/2024 3:08 AM CLUTCH INSPECTOR Uli Murphy MD LAB - CHEMISTRY ORDE RABLES Performing Organization Address [facility] Co de Phone Number [address] [address], [place] [phone] * CRYSTAL INDENTIFICATION SYNOVIAL FLUID (05/20/2024 6:41 PM CLUTCH INSPECTOR) Crystal Exam Fluid To be performed by Pathology. See Path Review. 05/21/2024 8:16 AM [facility] Fluid SYNOVIAL FLUID / Unknown Collection / Unknown 05/20/2024 6:41 PM CLUTCH INSPECTOR 05/21/2024 8:13 AM CLUTCH INSPECTOR Gerardo Álvarez MD LAB - BODY FLUID ORD ERABLES Performing Organization Address City/[facility]/ZIP Co de Phone Number [address] [place] [address], [place] [phone] * PATHOLOGY SMEAR BODY FLUID (05/20/2024 6:41 PM CLUTCH INSPECTOR) Only the most recent of2 resultswithin the time period is included. Path Review Fluid Confirmed 05/22/2024 4:04 PM CLUTCH INSPECTOR [facility] Fluid SYNOVIAL FLUID / Unknown Collection / Unknown 05/20/2024 6:41 PM CLUTCH INSPECTOR 05/21/2024 8:13 AM CLUTCH INSPECTOR Narrative [facility] - 05/22/2024 4:04 PM CLUTCH INSPECTOR No intracellular crystals seen. Gerardo Álvarez MD LAB - PATHOLOGY/CYTO LOGY ORDERABLES [facility] [address] [place] [address], [place] [phone] * CULTURE WOUND+GRAM STAIN (05/20/2024 6:41 PM CLUTCH INSPECTOR) Culture No growth LEANNE 05/23/2024 5:[address] [facility] Gram Stain Moderate Polymorphonuclear cells 05/23/2024 5:[address] [facility] Gram Stain Moderate Red blood cells 05/23/2024 5:[address] [facility] Gram Stain No organisms seen 024 5:[address] [facility] Microbiology ENTIRE KNEE REGION / Unknown Collection / Unknown 05/20/2024 6:41 PM CLUTCH INSPECTOR 05/20/2024 6:49 PM CLUTCH INSPECTOR Gerardo Álvarez MD LAB - MICROBIOLOGY O RDERABLES [facility] [address] [place] [address], [facility] [phone] * (ABNORMAL) CULTURE ANAEROBE (05/20/2024 6:41 PM CLUTCH INSPECTOR) Only the most recent of3 resultswithin the time period is included. Culture Light Gemella species(A) LEANNE 05/25/2024 12:32 PM CLUTCH INSPECTOR [facility] Microbiology ENTIRE KNEE REGION / Unknown Collection / Unknown 05/20/2024 6:41 PM CLUTCH INSPECTOR 05/20/2024 6:50 PM CLUTCH INSPECTOR Gerardo Álvarez MD LAB - MICROBIOLOGY O RDCHARLES [facility] [address] [place] [address], [facility] [phone] * ETT LINE PERFORMABLE (05/20/2024 6:24 PM CLUTCH INSPECTOR) Narrative Kiko Garner Anes Asst - 05/20/2024 6:24 PM CLUTCH INSPECTOR Kiko Garner Anes Asst 05/20/2024 6:27 PM Endotracheal Tube Placement: Patient Location: OR. Intubation Event Date/Time: 05/20/2024 6:10 PM Procedure: intubation (31102) Procedure Section: Sedation: under general anesthesia. Indications [...] Anes Asst, Performed the procedure. Provider #2: Frit Coater, Student Anesthesiology Frit Coater Student Anesthesiology, Performed the procedure. Additional Comments: Atraumatic supervised intubation performed by Ramandeep Lawton, Student Anesthesiologist Frit Coater.. Nickolas Donahue MD GENERAL ANESTHESIA O MEREDITH * TRANSFUSE PLATELET PHERESIS UNIT(S) (05/20/2024 3:17 AM CLUTCH INSPECTOR) Sanjuana Salazar MD NURSING - BLOOD PROD TRANSFUSION * (ABNORMAL) URIC ACID BLOOD (05/19/2024 11:55 PM CLUTCH INSPECTOR) Only the most recent of5 resultswithin the time period is included. Uric Acid 7.6(H) 3.5 - 7.2 mg/dL 05/20/2024 12:23 AM CLUTCH INSPECTOR [facility] Blood BLOOD SPECIMEN / Unknown Venipuncture / Unknown 05/19/2024 11:55 PM CLUTCH INSPECTOR 05/19/2024 11:58 PM CLUTCH INSPECTOR Sanjuana Salazar MD LAB - CHEMISTRY ORDE ANASTACIO Performing Organization Address City/[facility]/ZIP Co de Phone Number [facility] [address] [place] [address], [facility] [phone] * CULTURE FUNGUS OTHER+FUNGUS SMEAR (05/19/2024 7:42 PM CLUTCH INSPECTOR) Pathologist [facility] Culture No fungus isolated LEANNE 06/14/2024 2:[address] [facility] Fungus Stain No yeast or hyphae seen 06/14/2024 2:[address] [facility] Microbiology SYNOVIAL FLUID / Unknown Collection / Unknown 05/19/2024 7:42 PM CLUTCH INSPECTOR 05/19/2024 7:42 PM CLUTCH INSPECTOR Sanjuana Salazar MD LAB - MICROBIOLOGY O RDERABLES Performing Organization Address City/[facility]/ZIP Co de Phone Number [facility] [address] [place] [address], [facility] [phone] * DIFFERENTIAL MANUAL FLUID (05/19/2024 7:42 PM CLUTCH INSPECTOR) Only the most recent of19 resultswithin the time period is included. Fluid Source Synovial 05/19/2024 9:14 PM [facility] Body Fluid Total Cell Count 100 x10E6/L 05/19/2024 9:14 PM [facility] Neutrophils Fluid Percent 97 % 05/19/2024 9:14 PM [facility] Lymphocytes Fluid Percent 2 % 05/19/2024 9:14 PM [facility] Macrophages Fluid Percent 1 % 05/19/2024 9:14 PM [facility] Fluid SYNOVIAL FLUID / Unknown Collection / Unknown 05/19/2024 7:42 PM CLUTCH INSPECTOR 05/19/2024 7:42 PM CLUTCH INSPECTOR Narrative [facility] - 05/19/2024 9:14 PM CLUTCH INSPECTOR No reference ranges established for body fluid differential cell counts. The test results must be integrated into the clinical context for interpretation. Sanjuana Salazar MD LAB - BODY FLUID ORD ERABLES Performing Organization Address City/[facility]/ZIP Co de Phone Number [facility] [address] [place] [address], [facility] [phone] * CULTURE FLUID+GRAM STAIN (05/19/2024 7:42 PM CLUTCH INSPECTOR) Only the most recent of19 resultswithin the time period is included. Culture No growth LEANNE 05/23/2024 5:[address] [facility] Gram Stain Light Polymorphonuclear cells 05/23/2024 5:[address] [facility] Gram Stain No organisms seen 024 5:[address] [facility] Other SYNOVIAL FLUID / Unknown Collection / Unknown 05/19/2024 7:42 PM CLUTCH INSPECTOR 05/19/2024 7:42 PM CLUTCH INSPECTOR Sanjuana Salazar MD LAB - MICROBIOLOGY O RDERABLES Performing Organization Address City/[facility]/ZIP Co de Phone Number [facility] [address] [place] [address], [facility] [phone] * (ABNORMAL) CELL COUNT W DIFFERENTIAL FLUID (05/19/2024 7:42 PM CLUTCH INSPECTOR) Fluid Source Synovial 05/19/2024 9:14 PM CLUTCH INSPECTOR [facility] Fluid Appearance TURBID 05/19/2024 9:14 PM [facility] Fluid Color ORANGE 05/19/2024 9:14 PM [facility] Total Nucleated Cells Fluid 56,010(H) <=200 x10E6/L 05/19/2024 9:14 PM [facility] RBC Count Fluid 40,000 Reference Range Not Established x10E6/L 05/19/2024 9:14 PM [facility] Fluid SYNOVIAL FLUID / Unknown Collection / Unknown 05/19/2024 7:42 PM CLUTCH INSPECTOR 05/19/2024 7:42 PM CLUTCH INSPECTOR Narrative [facility] - 05/19/2024 9:14 PM CLUTCH INSPECTOR No reference ranges established for body fluid cell counts. Any reference ranges provided are derived from published literature. The test results must be integrated into the clinical context for interpretation. Sanjuana Salazar MD LAB - BODY FLUID ORD ERABLES Performing Organization Address City/[facility]/ZIP Co de Phone Number [address] [address], [facility] [phone] * TRANSFUSE PLATELET PHERESIS UNIT(S) (05/19/2024 5:26 PM CLUTCH INSPECTOR) John Gutiérrez DO NURSING - BLOOD PROD TRANSFUSION * IMMATURE PLATELET FRACTION (05/01/2024 6:40 AM CDT) Immature Platelet Fraction 3.6 1.1 - 6.2 % 05/01/2024 8:34 AM CDT [facility] Blood BLOOD SPECIMEN / Unknown Lab Venipuncture / Unknown 05/01/2024 6:40 AM CDT 05/01/2024 7:51 AM CDT Melecio Graves MD LAB - HEMATOLOGY ORD ERABLES Performing Organization Address City/[facility]/ZIP Co de Phone Number [address] [address], [place] [phone] * (ABNORMAL) SLIDE SCAN HEMATOLOGY (05/01/2024 6:40 AM CDT) RBC Morphology REVIEWED 05/01/2024 8:34 AM CDT [facility] Microcytosis MODERATE(A) (none) 05/01/2024 8:34 AM CDT [facility] Blood BLOOD SPECIMEN / Unknown Lab Venipuncture / Unknown 05/01/2024 6:40 AM CDT 05/01/2024 7:51 AM CDT Melecio Graves MD LAB - HEMATOLOGY ORD ERABLES [address] [address] [phone] * MRI ABDOMEN WWO CONTRAST (04/01/2024 6:46 [...] Report dictated by Jaime Mcfarland MD, (physician vice president). IBianca MD have personally reviewed and interpreted this examination/study. > Interpreting Provider: Bianca Espinosa MD on 04/01/2024 3:52 PM Narrative 04/01/2024 3:52 PM CDT PROCEDURE: MRI ABDOMEN WWO CONTRAST, DATE/TIME OF EXAM: 04/01/2024 6:46 AM, LOCATION [facility] INDICATION: K74.60: Cirrhosis of liver with ascites, [...] DATE/TIME OF EXAM: 04/01/2024 6:46 AM, LOCATION [facility] INDICATION: K74.60: Cirrhosis of liver with ascites, [...] Report dictated by Jaime Mcfarland MD, (physician vice president). I, Bianca Espinosa MD have personally reviewed and interpreted this examination/study. > Interpreting Provider: Bianca Espinosa MD on 04/01/2024 3:52 PM Melecio Graves MD MR ORDERABLES * DRUG ABUSE URINE PANEL 9A W/ALC RFLX CONFIRM (03/17/2024 11:23 AM CDT) Amphetamines Urine Screen Negative Cutoff 300 ng/mL 03/18/2024 11:16 PM CDT [facility] ([facility]) Comment: Presumptive Negative by immunoassay. Testing by mass spectrometry is available on request. Barbiturates Urine Screen Negative Cutoff 200 ng/mL 03/18/2024 11:16 PM CDT [facility] ([facility]) Comment: Presumptive Negative by immunoassay. Testing by mass spectrometry is available on request. Benzodiazepines Urine Screen Negative Cutoff 200 ng/mL 03/18/2024 11:16 PM CDT [facility] ([facility]) Comment: Presumptive Negative by immunoassay. Testing by mass spectrometry is available on request. THC Urine Screen Negative Cutoff 50 ng/mL 03/18/2024 11:16 PM CDT [facility] ([facility]) Comment: Presumptive Negative by immunoassay. Testing by mass spectrometry is available on request. Cocaine Urine Screen Negative Cutoff 150 ng/mL 03/18/2024 11:16 PM T [facility] ([facility]) Comment: Presumptive Negative by immunoassay. Testing by mass spectrometry is available on request. Methadone Urine Screen Negative Cutoff 150 ng/mL 03/18/2024 11:16 PM T [facility] ([facility]) Comment: Presumptive Negative by immunoassay. Testing by mass spectrometry is available on request. Opiates Urine Negative Cutoff 300 ng/mL 03/18/2024 11:16 PM CDT [facility] ([facility]) Comment: Presumptive Negative by immunoassay. Testing by mass spectrometry is available on request. Phencyclidine Urine Screen Negative Cutoff 25 ng/mL 03/18/2024 11:16 PM T [facility] ([facility]) Comment: Presumptive Negative by immunoassay. Testing by mass spectrometry is available on request. Propoxyphene Urine Screen Negative Cutoff 300 ng/mL 03/18/2024 11:16 PM CDT [facility] ([facility]) Comment: Presumptive Negative by immunoassay. Testing by mass spectrometry is available on request. Alcohol Random Urine Negative Cutoff 40 mg/dL 03/18/2024 11:16 PM T [facility] ([facility]) Comment: Presumptive Negative by immunoassay. Testing by mass spectrometry is available on request. Creatinine Urine 58.5 20.0 - 400.0 mg/dL 03/18/2024 11:16 PM CDT [facility] ([facility]) CDASU 9A Comments See Note 024 11:16 PM T [facility] ([facility]) Comment: INTERPRETIVE INFORMATION: Drug Panel 9A, Urn, [...] opioid testing can be ordered. Refer to [employer] for test information. Performed By: [facility] [address] [place] [address] Territory Sales Executive: Eugene Richmond MD, PhD CLIA Number: [id number] Urine URINE / Unknown Collection / Unknown 03/17/2024 11:23 AM CDT 03/17/2024 11:46 AM CDT Eugenie Dsouza [employer] - URINE CHEMISTRY ORDERABLES [employer] ([facility]) [address] [place] [address], [facility] * (ABNORMAL) URINALYSIS COMPLETE W MICROSCOPIC (03/17/2024 11:23 AM CDT) Only the most recent of4 resultswithin the time period is included. Color UA Yellow Straw, Yellow 03/17/2024 12:33 PM CDT [facility] Clarity UA Clear Clear 03/17/2024 12:33 PM CDT [facility] Specific [place] UA 1.015 1.005 - 1.030 03/17/2024 12:33 PM [facility] pH UA 8.5(H) 5.0 - 8.0 pH 03/17/2024 12:33 PM [facility] Protein UA 2+(A) Negative 03/17/2024 12:33 PM [facility] Glucose UA Negative Negative 03/17/2024 12:33 PM [facility] Ketone UA Negative Negative 03/17/2024 12:33 PM [facility] Bilirubin UA Negative Negative 03/17/2024 12:33 PM [facility] Blood UA 2+(A) Negative 03/17/2024 12:33 PM [facility] Nitrite UA Negative Negative 03/17/2024 12:33 PM [facility] Leukocyte Esterase 1+(A) Negative 03/17/2024 12:33 PM [facility] Urobilinogen UA Negative Negative mg/dL 03/17/2024 12:33 PM [facility] RBC UA 3-5 None Seen, 0-2, 3-5 /HPF 03/17/2024 12:33 PM [facility] WBC UA 0-5 None Seen, 0-5 /HPF 03/17/2024 12:33 PM [facility] Bacteria UA None None /HPF 03/17/2024 12:33 PM [facility] Squamous Epithelial Cells UA None Seen None Seen, 0-2, 3-5 /HPF 03/17/2024 12:33 PM [facility] Urine URINE SPECIMEN OBTAINED BY CLEAN CATCH PROCEDURE / Unknown Collection / Unknown 03/17/2024 11:23 AM CDT 03/17/2024 11:[address] [facility] - 03/17/2024 12:33 PM CDT Urine sample less that 1 mL. Microscopic exam performed on unconcentrated sample. Eugenie Dsouza [employer] REPRESENTAT[employer] - URINA LYSIS ORDERABLES [facility] [address] [place] [address], [facility] [phone] * HLA ANTIBODY SCREEN LUM CLASS 2 SAB (02/11/2024 11:48 AM CDT) Only the most recent of2 resultswithin the time period is included. % PRA 0 02/20/2024 4:21 PM CDT [facility] ([facility]) Class 2 SAB Test Date [id number] 02/20/2024 4:21 PM CDT [facility] ([facility]) Comment: This test was developed and its performance characteristics determined by the [facility]. It has not been cleared or [...] high complexity clinical laboratory testing. CLIA ID# [id number] Performed at: [facility], [address] [place] [id number] Chemical Checker:Dr. Juan Lockwood, PhD, Blood BLOOD SPECIMEN / Unknown Lab Venipuncture / Unknown 02/11/2024 11:48 AM CDT 02/11/2024 12:09 PM CDT Melecio Graves MD LAB - BLOOD BANK ORD ERABLES [facility] ([facility]) [address] [place] [id number], [facility] * HLA ANTIBODY SCREEN LUM CLASS 1 SAB (02/11/2024 11:48 AM CDT) Only the most recent of3 resultswithin the time period is included. % PRA 0 02/20/2024 4:21 PM CDT [facility] ([facility]) Class 1 SAB Test Date [id number] 02/20/2024 4:21 PM CDT [facility] ([facility]) Comment: This test was developed and its performance characteristics determined by the [facility]. It has not been cleared or [...] high complexity clinical laboratory testing. CLIA ID# [id number] Performed at: [facility], [address] [place] [address] Chemical Checker:Dr. Juan Lockwood, PhD, Blood BLOOD SPECIMEN / Unknown Lab Venipuncture / Unknown 02/11/2024 11:48 AM CDT 02/11/2024 12:09 PM CDT Melecio Graves MD LAB - BLOOD BANK ORD ERABLES [facility] ([facility]) [address] [place] [address], [facility] * CT ABDOMEN PELVIS WO [...] > Dictated by Sandi Deutsch MD (physician vice president). > Dictated by Sandi Deutsch (Pipe Line Maintenance Supervisor) 01/21/2024 2:02 PM I, Chad Renner MD have personally reviewed and interpreted this examination/study. > Interpreting Provider: Chad Renner MD on 01/21/2024 7:53 PM Narrative 01/21/2024 7:53 PM CDT PROCEDURE: CT ABDOMEN PELVIS WO CONTRAST, DATE/TIME OF EXAM: 01/21/2024 1:59 PM, LOCATION [facility] INDICATION: N18.6: ESRD on dialysis (HCC) Z99.2: [...] DATE/TIME OF EXAM: 01/21/2024 1:59 PM, LOCATION [facility] INDICATION: N18.6: ESRD on dialysis (HCC) Z99.2: [...] > Dictated by Sandi Deutsch MD (physician vice president). > Dictated by Sandi Deutsch (Pipe Line Maintenance Supervisor) 01/21/2024 2:02 PM I, Chad Renner MD [...] noted. > Dictated by Regine Foy MD (Pipe Line Maintenance Supervisor) 04/24/2024 10:28 PM I, Saqib Montanez MD [...] DATE/TIME OF EXAM: 01/11/2024 12:52 PM, LOCATION [facility] INDICATION: N18.6: ESRD on dialysis (HCC) Z99.2: [...] DATE/TIME OF EXAM: 01/11/2024 12:52 PM, LOCATION [facility] INDICATION: N18.6: ESRD on dialysis (HCC) Z99.2: [...] Jung Palacio M.D. on 01/11/2024 2:25 PM Melecoi Graves MD NM ORDERABLES * STRESS TEST Pharm-Lexiscan (Regadenoson) (01/11/2024 11:54 AM CDT) Only the most recent of2 resultswithin the time period is included. [facility] Signature Predicted METS 8.3 METS [facility] [...] LV A4C EF 77.053 % SSM CV [facility] I PACS LV EDV A2C 256.551 ml [...] pk [place] 110.325 cm/s SSM CV [facility] PACS LVOT pk [place] 110.325 cm/s SSM CV [facility] PACS LVOT pk [place] 110.325 cm/s SSM CV [facility] PACS LVOT pk [place] 110.325 cm/s SSM CV [facility] PACS LVOT VTI 32.25 cm SSM CV [facility] PACS LVOT VTI 32.25 cm SSM CV [facility] PACS LVOT VTI 32.25 cm SSM CV [facility] PACS LVOT VTI 32.25 cm SSM CV [facility] PACS RVOT pk [place] 76.107 cm/s SSM CV F [facility] PACS RVOT pk [place] 76.107 cm/s SSM CV [facility] PACS RVOT pk [place] 76.107 cm/s SSM CV [facility] PACS RVOT pk [place] 76.107 cm/s SSM CV [facility] PACS RVOT VTI 17.157 cm SSM CV [facility] PACS RVOT VTI 17.157 cm [...] 9:30 AM Patient Status: O/P Study Site: [facility] Primary Location: [facility] EStud Info Technical Quality: Good Exam [...] Provider: Eugenie Dsouza Attending Physician: Eugenie Dsouza Amusement Ride Operator: Allison Lynn Nurse: Tala Reagan Summary * Left ventricular systolic function is [...] 9:30 AM Patient Status: O/P Study Site: [facility] Primary Location: [facility] Info Technical Quality: Good Exam Type: ECHO [...] Provider: Eugenie Dsouza Attending Physician: Eugenie Dsouza Amusement Ride Operator: Allison Lynn Nurse: Tala Resendez Summary * [...] Reason: Maximal effort/unable to continue Medications See [facility] for a complete list of medications [...] O NEG 12/25/2023 9:4 5 AM CDT [facility] BLOOD BANK LAB Blood BLOOD SPECIMEN / Unknown Lab Venipuncture / Unknown 12/25/2023 8:19 AM CDT 12/25/2023 9:04 AM CDT Eugenie [facility] - BLOOD BANK ORDERABLES [facility] BLOOD BANK LAB [address] [place] [address], [facility] [phone] * PHOSPHATIDYLETHANOL (PETH) (12/25/2023 8:13 AM CDT) Only the most recent of4 resultswithin the time period is included. PEth 16:0/18.1 (POPEth) <10 ng/mL 12/27/2023 2:32 AM [facility] [employer] ([facility]) Comment: PEth 16:0/18:1 (POPEth) Less than 10 ng/mL............Not detected Less than 20 ng/mL............Abstinence or light alcohol consumption 20 - 200 ng/mL................Moderate alcohol consumption Greater than 200 ng/mL........Heavy alcohol consumption or chronic alcohol use (Reference: Melchor Chiang and Elvin Fofana 2018 J. Forensic Sci) PEth 16:0/18.2 (PLPEth) <10 ng/mL 12/27/2023 2:32 AM [facility] [employer] ([facility]) Comment:Reference ranges are not well established. EER Peth See Note 12/27/2023 2:32 AM [facility] [employer] ([facility]) Comment: Authorized individuals can access the [facility] Enhanced Report using the following link: [email or web address] Interpretation PEth See Comment 12/27/2023 2:32 AM [facility] [employer] ([facility]) Comment: Phosphatidylethanol (PEth) is a group of [...] developed and its performance characteristics determined by [employer]. It has not been cleared or approved by the U.S. Food and Drug Administration. This test was performed in a CLIA-certified laboratory and is intended for clinical purposes. Performed By: [facility] [address] [place] [address] Territory Sales Executive: Eugene Richmond MD, PhD CLIA Number: [id number] Blood BLOOD SPECIMEN / Unknown Lab Venipuncture / Unknown 12/25/2023 8:13 AM CDT 12/25/2023 8:31 AM CDT Eugenie Dsouza [employer] REPRESENTAT[employer] - CHEMI STRY ORDERABLES [facility]) [address] [place] [address] * QUANTIFERON-TB GOLD PLUS 4-TUBE (12/25/2023 8:13 AM CDT) Only the most recent of3 resultswithin the time period is included. QuantiFERON Mitogen Minus NIL 10.00 IU/mL 12/29/2023 7:32 AM CDT [facility]) QuantiFERON Nil Value 0.00 IU/mL 12/29/2023 7:32 AM CDT [facility]) QuantiFERON Plus TB1 Minus NIL 0.01 <=0.34 IU/mL 12/29/2023 7:32 AM CDT [facility]) QuantiFERON Plus TB2 Minus NIL 0.00 <=0.34 IU/mL 12/29/2023 7:32 AM CDT [facility]) QuantiFERON-TB Gold Plus Negative Negative 12/29/2023 7:32 AM CDT [facility]) Comment: INTERPRETIVE INFORMATION:Quantiferon TB Gold Plus Interferon [...] Mycobacterium tuberculosis Infection -- [place], 2010 (http://www.cdc.gov/mmwr/preview/mmwrhtml/uo9826o4.htm), for more information concerning test performance in low-prevalence populations and use in occupational screening. Performed By: [facility] [employer] [address] [place] [address] Territory Sales Executive: Eugene Richmond MD, PhD CLIA Number: [id number] Blood BLOOD SPECIMEN / Unknown Lab Venipuncture / Unknown 12/25/2023 8:13 AM CDT 12/25/2023 8:33 AM CDT Eugenie Dsouza [employer] REPRESENTAT[employer] - CHEMI STRY ORDERABLES [facility] ([facility]) [address] [place] [address], [facility] * (ABNORMAL) LUPUS ANTICOAGULANT PANEL (12/25/2023 8:13 AM CDT) Only the most recent of2 resultswithin the time period is included. APTT 43.3(H) 23.0 - 38.4 Seconds 12/25/2023 11:31 AM CDT [facility] PT 20.6(H) 12.1 - 14.8 Seconds 12/25/2023 11:31 AM CDT [facility] INR 1.8 See Comment 12/25/2023 11:31 AM CDT [facility] [place] Buffer 54.6 Seconds 06/25/2 024 11:31 AM CDT [facility] [place] Phospholipid 51.1 Seconds 12/25/2023 11:31 AM CDT [facility] [place] Delta 3.5 <8.0 Seconds 12/25/2023 11:31 AM CDT [facility] Interpretation [place] Negative 12/25/2023 11:31 AM CDT [facility] Comment:Up to 15-20% of sachin ents [...] CDT 12/25/2023 8:31 AM CDT Eugenie Dsouza [employer] REPRESENTAT[facility] - HEMAT OLOGY ORDERABLES [address] [address], [facility] [phone] * STRONGYLOIDES ANTIBODY IGG (12/25/2023 8:13 AM CDT) Only the most recent of3 resultswithin the time period is included. Strongyloides Antibody IgG 0.7 <=0.9 IV 12/26/2023 10:59 PM CDT [employer] ([facility]) Comment: INTERPRETIVE INFORMATION: Strongyloides Ab, IgG by [...] also result in false-positive results. Performed By: [facility] [address] [place] [address] Territory Sales Executive: Eugene Richmond MD, PhD CLIA Number: [id number] Blood BLOOD SPECIMEN / Unknown Lab Venipuncture / Unknown 12/25/2023 8:13 AM CDT 12/25/2023 8:32 AM CDT Eugenie Dsouza [employer] REPRESENTAT[facility] - SEROL OGY ORDERABLES [facility] [employer] [facility]) [address] [place] [address], [facility] * (ABNORMAL) CYTOMEGALOVIRUS ANTIBODY IGG BLOOD (12/25/2023 8:13 AM CDT) Only the most recent of2 resultswithin the time period is included. Cytomegalovirus Antibody IgG >10.00(H ) <=0.70 U/mL 12/26/2023 12:47 PM CDT [employer] ([facility]) Comment: INTERPRETIVE INFORMATION: Cytomegalovirus Antibody, IgG 0.59 [...] laboratory at the same time. Performed By: [facility] [address] [place] [address] Territory Sales Executive: Eugene Richmond MD, PhD CLIA Number: [id number] Blood BLOOD SPECIMEN / Unknown Lab Venipuncture / Unknown 12/25/2023 8:13 AM CDT 12/25/2023 8:32 AM CDT Eugenie Kurtis Dsouza AIR[employer] REPRESENTAT[facility] - CHEMI STRY ORDERABLES Performing Organization Address City/[facility] Co de Phone Number [facility] [employer] [facility]) [address] * RUBELLA ANTIBODY IGG TITER (12/25/2023 8:13 AM CDT) Only the most recent of2 resultswithin the time period is included. [facility] Rubella Antibody IgG 109.0 IU/mL 12/26/2023 1:07 PM CDT [facility] [employer] ([facility]) Comment: INTERPRETIVE INFORMATION: Rubella Antibody, IgG Less [...] the amount of antibody present. Performed By: [facility] [address] [place] [address] Territory Sales Executive: Eugene Richmond MD, PhD CLIA Number: [id number] Blood BLOOD SPECIMEN / Unknown Lab Venipuncture / Unknown 12/25/2023 8:13 AM CDT 12/25/2023 8:32 AM CDT Eugenie Dsouza APRN-[facility] LAB - SEROL OGY ORDERABLES Performing Organization Address City/[facility]/ZIP Co de Phone Number [employer] ([facility]) [address] * RUBEOLA ANTIBODY IGG (12/25/2023 8:13 AM CDT) Only the most recent of3 resultswithin the time period is included. Measles (Rubeola) Antibody IgG >300.0 AU/mL 12/26/2023 12:16 PM CDT [facility] [employer] ([facility]) Comment: INTERPRETIVE INFORMATION: Measles (Rubeola) Antibody, IgG [...] laboratory at the same time. Performed By: [facility] [address] [place] [address] Territory Sales Executive: Eugene Richmond MD, PhD CLIA Number: [id number] Blood BLOOD SPECIMEN / Unknown Lab Venipuncture / Unknown 12/25/2023 8:13 AM CDT 12/25/2023 8:32 AM CDT Eugenie Dsouza AIR[employer] REPRESENTATIVE[facility] - CHEMI STRY ORDERABLES [facility] [employer] [facility]) [address] [place] [address], [facility] * MUMPS ANTIBODY IGG (12/25/2023 8:13 AM CDT) Only the most recent of3 resultswithin the time period is included. Mumps Virus Antibody IgG 10.8 AU/mL 12/26/2023 12:44 PM CDT [facility] [employer] ([facility]) Comment: INTERPRETIVE INFORMATION: Mumps Ab, IgG by [...] laboratory at the same time. Performed By: [facility] [address] [place] [address] Territory Sales Executive: Eugene Richmond MD, PhD CLIA Number: [id number] Blood BLOOD SPECIMEN / Unknown Lab Venipuncture / Unknown 12/25/2023 8:13 AM CDT 12/25/2023 8:32 AM CDT Eugenie Dsouza AIRPORT REPRESENTATIVE[facility] - CHEMI STRY ORDERABLES [employer] [facility]) [address] [place] [address] * VARICELLA ZOSTER ANTIBODY IGG (12/25/2023 8:13 AM CDT) Only the most recent of3 resultswithin the time period is included. [facility] Varicella zoster Virus Antibody IgG >4000.0 IV 12/26/2023 12:50 PM CDT [employer] ([facility]) Comment: INTERPRETIVE INFORMATION: VZV Ab, IgG 134.9 [...] laboratory at the same time. Performed By: [facility] [address] [place] [address] Territory Sales Executive: Eugene Richmond MD, PhD CLIA Number: [id number] Blood BLOOD SPECIMEN / Unknown Lab Venipuncture / Unknown 12/25/2023 8:13 AM CDT 12/25/2023 8:32 AM CDT Eugenie Dsouza AIRPORT REPRESENTATIVESwoopo ORDERABLES Performing Organization Address City/[facility]/ZIP Co de Phone Number [employer] [facility]) [address] * TRANSFERRIN (12/25/2023 8:13 AM CDT) Only the most recent of3 resultswithin the time period is included. Pathologist [facility] Transferrin 178 174 - 382 mg/dL 12/25/2023 9:03 AM CDT [facility] Blood BLOOD SPECIMEN / Unknown Lab Venipuncture / Unknown 12/25/2023 8:13 AM CDT 12/25/2023 8:32 AM CDT Eugenie Hull Dsouza [facility] ORDERABLES Performing Organization Address City/[facility]/ZIP Co de Phone Number [address] [address], [facility] [phone] * TOXOPLASMA GONDII ANTIBODY IGG (12/25/2023 8:13 AM CDT) Only the most recent of3 resultswithin the time period is included. Pathologist [facility] Toxoplasma Antibody IgG <3.0 <=8.8 IU/mL 12/26/2023 12:35 PM CDT [facility] ([facility]) Comment: INTERPRETIVE INFORMATION: Toxoplasma Ab, IgG 7.1 [...] the amount of antibody present. Performed By: [facility] [address] [place] [address] Territory Sales Executive: Eugene Richmond MD, PhD CLIA Number: [id number] Blood BLOOD SPECIMEN / Unknown Lab Venipuncture / Unknown 12/25/2023 8:13 AM CDT 12/25/2023 8:32 AM CDT Eugenie Dsouza [facility]NBA[facility]STATE [facility] LAB - CHEMI STRY ORDERABLES Performing Organization Address [facility] de Phone Number [facility] [employer] ([facility]) [address] * (ABNORMAL) KATIE-TRINIDAD VIRUS ANTIBODY TO VCA IGG (12/25/2023 8:13 AM CDT) Only the most recent of2 resultswithin the time period is included. Katie-Trinidad Virus Antibody IgG Viral Capsid Antigen >750.0(H) 0.0 - 21.9 U/mL 12/26/2023 1:03 PM CDT [facility] [employer] ([facility]) Comment: INTERPRETIVE INFORMATION: Katie-Trinidad Virus Antibody to Viral Capsid Antigen, IgG 17.9 U/mL or less.......Not Detected 18.0-21.9 U/mL..........Indeterminate - Repeat testing in 10-14 days may be helpful. 22.0 U/mL or greater....Detected Performed By: [employer] [address] [place] [address] Territory Sales Executive: Eugene Richmond MD, PhD CLIA Number: [id number] Blood BLOOD SPECIMEN / Unknown Lab Venipuncture / Unknown 12/25/2023 8:13 AM CDT 12/25/2023 8:32 AM CDT Eugenie Dsouza [facility] LAB - CHEMI STRY ORDERABLES Performing Organization Address City/[facility]/ZIP Co de Phone Number [facility] [employer] ([facility]) [address] * HEMOGLOBIN A1C (12/25/2023 8:13 AM CDT) Only the most recent of4 resultswithin the time period is included. Hemoglobin A1c 4.4 <=5.6 % 12/25/2023 9:57 AM CDT [facility] Estimated Average Glucose 80 mg/dL 12/25/2023 9:57 AM CDT [facility] Comment: HbA1c Interpretation: Normal : < 5.7% Pre-diabetes: 5.7-6.4% Diabetes: Equal to or greater than 6.5% Test results diagnostic of diabetes should be repeated for confirmation. Treatment target values recommended by ADA and other clinical organizations should be used to evaluate metabolic control in patients. Reference: [place] [employer], Standards of Care in Diabetes -2020 In patients 70 years and older consider HbA1c target range of 7.0-7.5% (Reference: Jeffrey Castellano et al. JAMDA. 2012) The Sebia assay for the measurement of HbA1c is a National Glycohemoglobin Standardization Program (NGSP) certified method. Blood BLOOD SPECIMEN / Unknown Lab Venipuncture / Unknown 12/25/2023 8:13 AM CDT 12/25/2023 8:37 AM CDT Eugenie Dsouza [facility]NBA[facility] - CHEMI STRY ORDERABLES Performing Organization Address City/[facility]/ZIP Co de Phone Number [address] [address], [place] [phone] * ALPHA FETOPROTEIN BLOOD TUMOR (12/25/2023 8:13 AM CDT) Only the most recent of5 resultswithin the time period is included. Alpha-Fetoprote in Tumor Marker 3.0 <=8.3 ng/mL 12/25/2023 9:31 AM CDT [facility] Comment: AFP values will vary depending on testing procedure used. Results are not comparable across different methods. AFP values obtained by [facility] using an Ricardo Alinity Immunoassay. Blood BLOOD SPECIMEN / Unknown Lab Venipuncture / Unknown 12/25/2023 8:13 AM CDT 12/25/2023 8:39 AM CDT Eugenie Dsouza [employer]PRES[employer] - CHEMI STRY ORDERABLES [address] [address], [place] [phone] * NICOTINE + METABOLITES BLOOD (12/25/2023 8:13 AM CDT) Only the most recent of4 resultswithin the time period is included. Pathologist [facility] Nicotine 20 ng/mL 12/28/2023 9:00 PM CDT [facility] ([facility]) Comment: INTERPRETIVE INFORMATION: Nicotine and Metabolites, Serum [...] developed and its performance characteristics determined by [facility]. It has not been cleared or approved by the US Food and Drug Administration. This test was performed in a CLIA certified laboratory and is intended for clinical purposes. Performed By: [facility] [address] [place] [address] Territory Sales Executive: Eugene Richmond MD, PhD CLIA Number: [id number] Cotinine 239 ng/mL 12/28/2023 9:00 PM CDT [facility] [employer] ([facility]) Blood BLOOD SPECIMEN / Unknown Lab Venipuncture / Unknown 12/25/2023 8:13 AM CDT 12/25/2023 8:32 AM CDT Eugenie Dsouza [facility] - CHEMI STRY ORDERABLES [facility]) [address] * PROSTATE SPECIFIC ANTIGEN SCREEN (12/25/2023 8:13 AM CDT) Only the most recent of3 resultswithin the time period is included. Pathologist [facility] PSA Total 0.6 0.0 - 4.0 ng/mL 12/25/2023 9:22 AM CDT [facility] Blood BLOOD SPECIMEN / Unknown Lab Venipuncture / Unknown 12/25/2023 8:13 AM CDT 12/25/2023 8:36 AM CDT Eugenie Dsouza [facility] - CHEMI STRY ORDERABLES Performing Organization Address City/[facility]/ZIP Co de Phone Number [facility] [address] [place] [phone], [facility] [phone] * IRON BLOOD (12/25/2023 8:13 AM CDT) Only the most recent of3 resultswithin the time period is included. [facility] Iron 137 50 - 175 ug/dL 12/25/2023 9:03 AM CDT [facility] Blood BLOOD SPECIMEN / Unknown Lab Venipuncture / Unknown 12/25/2023 8:13 AM CDT 12/25/2023 8:32 AM CDT Eugenie Dsouza [facility]PRES[facility] - CHEMI STRY ORDERABLES Performing Organization Address [facility] Co de Phone Number [address] [address], [facility] [phone] * (ABNORMAL) HEPATITIS B SURFACE ANTIBODY (12/25/2023 8:13 AM CDT) Only the most recent of3 resultswithin the time period is included. [facility] Hepatitis B Virus Surface Antibody Reactive( A) Non-react jaden 12/25/2023 9:23 AM CDT [facility] Comment: > 12 mIU/mL Hepatitis B surface Antibody (HBsAb). Reactive for HBsAb - individual is considered immune to Hepatitis B Virus infection. Hepatitis B Surface Antibody Quantitative 671.7(H) <8.0 mIU/mL 12/25/2023 9:23 AM CDT [facility] Comment: Hepatitis B Surface Antibody Numeric Result Interpretation: Nonreactive: <8.0 mIU/mL Indeterminate: 8.0 - 12.0 mIU/mL Reactive: >12.0 mIU/mL Blood BLOOD SPECIMEN / Unknown Lab Venipuncture / Unknown 12/25/2023 8:13 AM CDT 12/25/2023 8:32 AM CDT Eugenie Dsouza APRN-[facility] - CHEMI STRY ORDERABLES [address] [address], [facility] [phone] * HEPATITIS B CORE ANTIBODY (12/25/2023 8:13 AM CDT) Only the most recent of3 resultswithin the time period is included. HBc Antibody Total Non-reacti ve Non-reacti ve 12/25/2023 9:23 AM CDT [facility] Blood BLOOD SPECIMEN / Unknown Lab Venipuncture / Unknown 12/25/2023 8:13 AM CDT 12/25/2023 8:32 AM CDT Eugenie Dsouza [facility] - CHEMI STRY ORDERABLES Performing Organization Address City/[facility] Co de Phone Number [address] [address], [facility] [phone] * HEPATITIS B SURFACE ANTIGEN W RFLX CONFIRMATION (12/25/2023 8:13 AM CDT) Only the most recent of6 resultswithin the time period is included. Hepatitis B Virus Surface Antigen Non-reacti ve Non-reacti ve 12/25/2023 9:23 AM CDT [facility] Blood BLOOD SPECIMEN / Unknown Lab Venipuncture / Unknown 12/25/2023 8:13 AM CDT 12/25/2023 8:32 AM CDT Eugenie Dsouza [facility] - CHEMI STRY ORDERABLES [address] [address], [facility] [phone] * HEPATITIS C ANTIBODY (12/25/2023 8:13 AM CDT) Only the most recent of2 resultswithin the time period is included. Hepatitis C Antibody Non-react jaden Non-reac tive 12/25/2023 9:23 AM CDT [facility] Comment:Hepatitis C Antibody screen indicates no serologic [...] CDT 12/25/2023 8:32 AM CDT Eugenie Dsouza [facility] REPRESENT[facility] - CHEMI STRY ORDERABLES Performing Organization Address City/[facility]/ZIP Co de Phone Number [address] [address], [facility] [phone] * (ABNORMAL) HEPATITIS A ANTIBODY (12/25/2023 8:13 AM CDT) Only the most recent of2 resultswithin the time period is included. Pathologist [facility] Hepatitis A Virus Antibody Total Positive( A) Negative 12/26/2023 12:10 PM CDT [employer] ([facility]) Comment: The positive anti-HAV is consistent with recent or remote Hepatitis A infection or antibody response to HAV vaccination. False positive anti-HAV can occur. Performed By: [facility] [address] [place] [address] Territory Sales Executive: Eugene Richmond MD, PhD CLIA Number: [id number] Blood BLOOD SPECIMEN / Unknown Lab Venipuncture / Unknown 12/25/2023 8:13 AM CDT 12/25/2023 8:32 AM CDT Eugenie Dsouza [facility] REPRESENTAT[facility] - CHEMI STRY ORDERABLES Performing Organization Address [facility]/ZIP Co de Phone Number [employer] [facility]) [address] [place] [id number] * (ABNORMAL) LIPID PROFILE (12/25/2023 8:13 AM CDT) Only the most recent of3 resultswithin the time period is included. Cholesterol Total 104 <200 mg/dL 12/25/2023 9:18 AM CDT [facility] HDL 37(L) >40 mg/dL 12/25/2023 9:18 AM CDT [facility] Comment: ATP III Classification of HDL Cholesterol: <40 mg/dL: Considered a major risk factor. >60 mg/dL: Considered a negative risk factor. LDL Calculated 56 <100 mg/dL 12/25/2023 9:18 AM CDT [facility] Comment: ATP III Classification of LDL Cholesterol: <100 mg/dL: Optimal 100 - 129 mg/dL: Near Optimal/Above Optimal 130 - 159 mg/dL: Borderline High 160 - 189 mg/dL: High >190 mg/dL: Very High Triglycerides 57 <150 mg/dL 12/25/2023 9:18 AM CDT [facility] Comment: ATP III Classification of Triglycerides: <150 mg/dL: Normal 150 - 199 mg/dL: Borderline High 200 - 400 mg/dL: High >500 mg/dL: Very High Blood BLOOD SPECIMEN / Unknown Lab Venipuncture / Unknown 12/25/2023 8:13 AM CDT 12/25/2023 8:37 AM CDT Eugenie Dsouza [facility] REPRESENT[facility] - CHEMI STRY ORDERABLES Performing Organization Address [facility] Co de Phone Number [address] [address], [facility] [phone] * ECHO COMPLETE (11/01/2023 8:03 AM CDT) Only the most recent of2 resultswithin the time period is included. Pathologist [facility] BSA [id number] m2 [facility] CV FUJI PACS LV biplane [...] PACS LVOT VTI 42.086 cm [facility] CV [facility] I PACS AV area cont VTI 2.1 cm2 S[facility] CV FUJI PACS AV area pk [place] 1.8 cm2 [facility] Doppler [place] index pk [place] 0.482 [facility] Dimensionless Index 0.553 S[facility] CV FUJI PACS AV PHT 11,183 ms SSM CV FUJ I PACS AV pk [place] regurg 233.456 cm/s SSM CV FUJI PACS MV mn grad 3 mmHg SSM CV FU JI PACS MV pk grad 6 mmHg SSM CV FU JI PACS MV mn [place] 0.77 m/s SSM CV [facility] I PACS MV pk [place] 126.224 cm/s SSM CV FUJ I PACS MV PHT 87 ms SSM CV [facility] I PACS MV area PHT 2.54 cm2 [...] Index 57 ml/m2 SSM CV FUJI PACS [id number] 7.755 cm SSM CV FUJ I PACS [id number] 8.795 cm SSM CV FUJ I PACS [...] Atrium: Right atrium is mildly dilated. Jonathan Bae MD ECHO CUPID * (ABNORMAL) TRIGLYCERIDES BLOOD (10/31/2023 3:55 AM CDT) Triglycerides 244(H) <150 mg/dL 10/31/2023 4:32 AM CDT [facility] Comment: ATP III Classification of Triglycerides: <150 mg/dL: Normal 150 - 199 mg/dL: Borderline High 200 - 400 mg/dL: High >500 mg/dL: Very High Blood BLOOD SPECIMEN / Unknown Venipuncture / Unknown 10/31/2023 3:55 AM CDT 10/31/2023 4:02 AM CDT Leroy June MD LAB - CHEM ISTRY ORDERABLES [place] [phone], [facility] [phone] * (ABNORMAL) LEVETIRACETAM LEVEL (10/29/2023 8:44 PM CDT) Only the most recent of2 resultswithin the time period is included. Levetiracetam 56(H) 10 - 40 ug/mL 11/01/2023 12:03 PM CDT [employer] ([facility]) Comment: INTERPRETIVE INFORMATION: Keppra (Levetiracetam) Therapeutic Range: 10-40 ug/mL Toxic: Not well Established Pharmacokinetics of levetiracetam are affected by renal function. Adverse effects may include somnolence, weakness, headache and vomiting. This levetiracetam (Keppra) immunoassay uses the [employer] reagents, which has known cross-reactivity with the drug brivaracetam (Briviact) and may report inaccurate results. Patients transitioning from levetiracetam to brivaracetam or those who are using both medications should not monitor drug concentrations with the [employer] assay. These patients should be monitored using a validated chromatographic methodology that distinguishes between drugs to determine drug concentrations. Performed By: [facility] [address] [place] [address] Territory Sales Executive: Eugene Richmond MD, PhD CLIA Number: [id number] Blood BLOOD SPECIMEN / Unknown Capillary / Unknown 10/29/2023 8:44 PM CDT 10/29/2023 8:50 PM CDT Bg Austin DO LAB - THERAPEUTIC DR LYNN MONITORING ORDERABLES [facility] [employer] [facility]) [address] * AMMONIA (10/29/2023 8:44 PM CDT) Only the most recent of3 resultswithin the time period is included. Pathologist [facility] Ammonia 71 <=72 umol/L 10/29/2023 9:17 PM T [facility] Blood BLOOD SPECIMEN / Unknown Capillary / Unknown 10/29/2023 8:44 PM CDT 10/29/2023 8:51 PM CDT Leroy June MD LAB - CHEM ISTRY ORDERABLES [facility] [address] [place] [phone], [facility] [phone] * (ABNORMAL) BLOOD GASES ART + COOX PANEL (10/29/2023 8:33 PM CDT) Only the most recent of2 resultswithin the time period is included. pH Arterial 7.40 7.35 - 7.45 pH 10/29/2023 8:52 PM [facility] pO2 Arterial 94 80 - 100 mmHg 10/29/2023 8:52 PM [facility] pCO2 Arterial 33(L) 35 - 45 mmHg 8:52 PM [facility] HCO3 Arterial 20.4 20.0 - 30.0 mmol/L 10/29/2023 8:52 PM [facility] BE Arterial -3.7(L) -2.0 - 2.0 mmol/L 10/29/2023 8:52 PM [facility] Oxyhemoglobin Arterial 95.8 % 10/29/2023 8:52 PM [facility] Dexoyhemoglobin (HHB) % <1.0 % 10/29/2023 8:52 PM [facility] Methemoglobin <0.8 0.0 - 2.0 % 10/29/2023 8:52 PM [facility] Carboxyhemoglobin 2.8(H) 0.0 - 2.0 % 2023 8:52 PM [facility] O2 Content Arterial 15.9 Interpret within clinical context ml/dL 10/29/2023 8:52 PM [facility] Hemoglobin by COOX 11.7(L) 12.0 - 17.6 g/dL 10/29/2023 8:52 PM CDT [facility] O2 Saturation Arterial 99 90 - 100 % 10/29/2023 8:52 PM CDT [facility] FI O2 Arterial 50.0 % 10/29/2023 8:52 PM CDT [facility] Blood, arterial ARTERIAL BLOOD SPECIMEN / Unknown Arterial Puncture / Unknown 10/29/2023 8:33 PM CDT 10/29/2023 8:42 PM CDT Narrative [facility] - 10/29/2023 8:52 PM CDT Carboxyhemoglobin Normal Concentration: Non-smokers: 0-2%; Smokers: 0-9%; Toxic: >20% Leroy June MD LAB - BLOO D GASES ORDERABLES [facility] [address] [place] [phone], [facility] [phone] * XR ABDOMEN KUB PORTABLE (10/29/2023 7:07 PM CDT) Only the most recent of2 resultswithin the time period is included. Anatomical Region Laterality Modality Abdomen Radiographic Cindy ging 10/30/2023 8:34 AM CDT Narrative 10/30/2023 9:07 AM CDT PROCEDURE: XR ABDOMEN KUB PORTABLE, DATE/TIME OF EXAM: 10/29/2023 7:07 PM, LOCATION [facility] INDICATION: N18.6: ESRD on dialysis (HCC) Z99.2: [...] PORTABLE, DATE/TIME OF EXAM: 10/29/2023 7:07PM, LOCATION [facility] INDICATION: N18.6: ESRD on dialysis (HCC) Z99.2: [...] DATE/TIME OF EXAM: 10/29/2023 7:07 PM, LOCATION [facility] INDICATION: N18.6: End stage renal disease (HCC) [...] PORTABLE, DATE/TIME OF EXAM: 10/29/2023 7:07PM, LOCATION [facility] INDICATION: N18.6: End stage renal disease (HCC) [...] Report dictated by Sandi Deutsch MD (physician vice president). Kristin Silva MD have personally reviewed and interpreted this examination/study. > Interpreting Provider: Kristin Davidson MD on 10/29/2023 6:38 PM Narrative 10/29/2023 6:38 PM CDT PROCEDURE: CT HEAD WO CONTRAST, DATE/TIME OF EXAM: 10/29/2023 6:15 PM, LOCATION [facility] INDICATION: N18.6: ESRD on dialysis (HCC) Z99.2: [...] DATE/TIME OF EXAM: 10/29/2023 6:15 PM, LOCATION [facility] INDICATION: N18.6: ESRD on dialysis (HCC) Z99.2: [...] Report dictated by Sandi Deutsch MD (physician vice president). I, Kristin Davidson MD have personally reviewed and interpretedthis examination/study. > Interpreting Provider: Kristin Davidson MD on 10/29/2023 6:38 PM [address] June MD CT ORDERAB LES * (ABNORMAL) RENAL FUNCTION PANEL (10/29/2023 6:03 PM CDT) BUN 101(H) 7 - 26 mg/dL 10/29/2023 6:55 PM [facility] Creatinine 11.41(H) 0.71 - 1.16 mg/dL 10/29/2023 6:55 PM [facility] Sodium 138 136 - 145 mmol/L 10/29/2023 6:55 PM [facility] Potassium 4.4 3.5 - 4.5 mmol/L 10/29/2023 6:55 PM [facility] Chloride 99 98 - 107 mmol/L 10/29/2023 6:55 PM [facility] CO2 19(L) 22 - 29 mmol/L 10/29/2023 6:55 PM [facility] Glucose 99 70 - 115 mg/dL 10/29/2023 6:55 PM [facility] Albumin 3.6 3.4 - 5.0 g/dL 10/29/2023 6:55 PM CDT [facility] Calcium 9.1 8.4 - 10.2 mg/dL 10/29/2023 6:55 PM CDT [facility] Phosphorus 4.6 2.8 - 5.1 mg/dL 10/29/2023 6:55 PM CDT [facility] Anion Gap 20(H) 6 - 16 10/29/2023 6:55 PM T [facility] BUN/Creatinine Ratio 9 7 - 23 10/29/2023 6:55 PM T [facility] Osmolality Calculated 318(H) 275 - 295 mOsm/kg 10/29/2023 6:55 PM T [facility] eGFR by CKD-EPI 5(L) >=90 mL/min/1.7 3 m2 10/29/2023 6:55 PM CDT [facility] Blood BLOOD SPECIMEN / Unknown Venipuncture / Unknown 10/29/2023 6:03 PM CDT 10/29/2023 6:12 PM CDT Hany Whyte MD LAB - CHEMISTRY ORDE ANASTACIO [facility] [address] [place] [phone], [facility] [phone] * (ABNORMAL) LACTIC ACID BLOOD (10/29/2023 6:03 PM CDT) Only the most recent of4 resultswithin the time period is included. Lactic Acid-Stat 2.1(H) <=2.0 mmol/L 10/29/2023 6:32 PM CDT [facility] Blood BLOOD SPECIMEN / Unknown Venipuncture / Unknown 10/29/2023 6:03 PM CDT 10/29/2023 6:12 PM CDT Leroy June MD LAB - CHEM ISTRY ORDERABLES [facility] [address] [place] [phone], [place] [phone] * HEPATITIS B SURFACE ANTIBODY QUANT (10/29/2023 2:04 PM CDT) Only the most recent of3 resultswithin the time period is included. Hepatitis B Virus Surface Antibody 928.78 IU/L 10/31/2023 10:23 AM CDT [employer] ([facility]) Comment: The anti-HBs is greater than or [...] Cellular and Tissue-Based Products (HCT/P). Performed By: [facility] [address] [place] [address] Territory Sales Executive: Eugene Richmond MD, PhD CLIA Number: [id number] Blood BLOOD SPECIMEN / Unknown Venipuncture / Unknown 10/29/2023 2:04 PM CDT 10/29/2023 2:04 PM CDT Hossein Perla MD LAB - SEROLOGY ORDER MALIHA [facility] [employer] [facility]) [address] [place] [address], [facility] * XR CHEST 2VW (10/29/2023 [...] Report dictated by Seven Rivas MD (physician vice president). I, Elzbieta Woodard MD have personally reviewed and interpreted this examination/study. > Interpreting Provider: Elzbieta Woodard MD on 10/29/2023 10:29 AM Narrative 10/29/2023 10:29 AM CDT PROCEDURE: XR CHEST 2VW, DATE/TIME OF EXAM: 10/29/2023 9:01 AM, LOCATION [facility] INDICATION: R53.81: Malaise ADDITIONAL CLINICAL INFORMATION: Ordering [...] DATE/TIME OF EXAM: 10/29/2023 9:01 AM, LOCATION [facility] INDICATION: R53.81: [place]aise ADDITIONAL CLINICAL INFORMATION: Ordering [...] Report dictated by Seven Rivas MD (physician vice president). I, Elzbieta Woodard MD have personally reviewed and interpreted this examination/study. > Interpreting Provider: Elzbieta Woodard MD on 10/29/2023 10:29 AM Hany Whyte MD DIAGNOSTIC IMAGING O RDERABLES * SARS-COV-2 (COVID-19)+INFLU A+B PCR RAPID (10/29/2023 8:37 AM CDT) Only the most recent of2 resultswithin the time period is included. COVID-19 PCR Not detected Not detected 10/29/19 9:28 AM CDT [facility] Influenza A Rapid BRENNA Not Detected Not Detected 10/29/2023 9:28 AM CDT [facility] Influenza B BRENNA Rapid Not Detected Not Detected 10/29/2023 9:28 AM T [facility] Microbiology SPECIMEN FROM NASOPHARYNGEAL STRUCTURE / Unknown Collection / Unknown 10/29/2023 8:37 AM CDT 10/29/2023 8:42 AM CDT [facility] - 10/29/2023 9:28 AM CDT Influenza assay [...] acid amplification assay performance was validated by [facility]. This test has been authorized by the [...] - MICROBIOLOGY O RDERAAMIRA Performing Organization Address [facility]/ZIP Co de Phone Number [address] [address], [facility] [phone] * LACTIC ACID BLOOD REFLEX TO REPEAT (10/29/2023 8:36 AM CDT) Lactic Acid-Stat 1.6 <=2.0 mmol/L 10/29/2023 9:08 AM CDT [facility] Blood BLOOD SPECIMEN / Unknown Venipuncture / Unknown 10/29/2023 8:36 AM CDT 10/29/2023 8:45 AM CDT Hany Whyte MD LAB - CHEMISTRY FREDO CHAVES Performing Organization Address [facility] Co de Phone Number [address] [address], [facility] [phone] * LIPASE BLOOD (10/29/2023 8:36 AM CDT) Lipase 73 8 - 78 U/L 10/29/2023 9:35 AM CDT [facility] Blood BLOOD SPECIMEN / Unknown Venipuncture / Unknown 10/29/2023 8:36 AM CDT 10/29/2023 8:45 AM CDT Narrative [facility] - 10/29/2023 9:35 AM CDT Lipase results from the [employer] Alinity analyzer may not be comparable with other methodologies. Hany Whyte MD LAB - CHEMISTRY FREDO CHAVES Performing Organization Address City/[facility]/ZIP Co de Phone Number [address] [address], [place] [phone] * ALCOHOL ETHYL BLOOD (10/29/2023 8:36 AM CDT) Only the most recent of5 resultswithin the time period is included. Ethanol (mg/dL) <10 <10 mg/dL 9:35 AM T [facility] Ethanol Calculated (g/dL) <0.010 <=0.010 g/dL 10/29/2023 9:35 AM T [facility] Blood BLOOD SPECIMEN / Unknown Venipuncture / Unknown 10/29/2023 8:36 AM CDT 10/29/2023 8:45 AM CDT Narrative [facility] - 10/29/2023 9:35 AM CDT Ethanol Interp <10: None Detected. Depression of VALVE INSERTER: >100 mg/dl Potentially Critical: >250 mg/dl Potentially [...] Whyte MD LAB - CHEMISTRY FREDO CHAVES [facility] Organization Address City/State/ZIP Co de Phone Number [address] [phone], [facility] [phone] * EGD (09/13/2023 7:49 AM CDT) Report [...] entire procedure. 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 All rights reserved. The codes documented in this report are preliminary and upon resident associate review may be revised to meet current compliance requirements. Melecio Graves, 09/13/2023 9:33:26 AM Note Initiated On: 09/13/2023 7:49 AM Number of Addenda: [phone] [place] [address] [employer] 09/13/2023 7:49 AM CDT Melecio Graves MD GI PROCEDURE ORDERAB LES [facility] [employer] * US ABDOMEN LIMITED (06/20/2023 11:00 AM CLUTCH INSPECTOR) Anatomical Region Laterality Modality Abdomen Ultrasound 06/20/2023 1:28 PM CLUTCH INSPECTOR Impressions 06/20/2023 3:40 PM CLUTCH INSPECTOR Impression: 1.Liver Visualization Score A: No or [...] (resident). > Dictated by Dylon Amos MD (Pipe Line Maintenance Supervisor) 06/20/2023 1:28 PM IBianca MD have personally reviewed and interpreted this examination/study. > Interpreting Provider: Bianca Espinosa MD on 06/20/2023 3:40 PM Narrative 06/20/2023 3:40 PM CLUTCH INSPECTOR PROCEDURE: US ABDOMEN LIMITED, DATE/TIME OF EXAM: 06/20/2023 11:08 AM, LOCATION [facility] INDICATION: K70.30: Alcoholic cirrhosis of liver without [...] DATE/TIME OF EXAM: 06/20/2023 11:08 AM, LOCATION [facility] INDICATION: K70.30: Alcoholic cirrhosis of liver without [...] (resident). > Dictated by Dylon Amos MD (Pipe Line Maintenance Supervisor) 06/20/2023 1:28 PM IBianca MD have personally reviewed and interpreted this examination/study. > Interpreting Provider: Bianca Espinosa MD on 06/20/2023 3:40 PM Melecio Graves MD US ORDERABLES * EEG EXTENDED MONITORING > 1 HOUR (05/22/2023 11:59 PM CLUTCH INSPECTOR) Narrative Pawan Kevin MD - 05/22/2023 11:59 PM CLUTCH INSPECTOR Pawan Kevin MD 05/23/2023 1:00 PM EEG [...] extended EEG. Pawan Kevin MD Catherine Colon [facility] FR[facility]O [facility]AVES * DRUG ABUSE URINE PANEL 9 W RFLX TO CONFIRM (05/03/2023 8:28 AM CDT) [facility] Amphetamines Urine Screen Negative Cutoff 300 ng/mL 05/04/2023 12:53 PM CDT [facility] ([facility]) Barbiturates Urine Screen Negative Cutoff 200 ng/mL 05/04/2023 12:53 PM CDT [facility] ([facility]) Benzodiazepines Urine Screen Negative Cutoff 200 ng/mL 05/04/2023 12:53 PM CDT [facility] ([facility]) THC Urine Screen Negative Cutoff 50 ng/mL 05/04/2023 12:53 PM CDT [facility] ([facility]) Cocaine Urine Screen Negative Cutoff 150 ng/mL 05/04/2023 12:53 PM CDT [facility] ([facility]) Methadone Urine Screen Negative Cutoff 150 ng/mL 05/04/2023 12:53 PM CDT [facility] ([facility]) Comment: INTERPRETIVE INFORMATION: Methadone, Urn, Screen EFFECTIVE 04/02/2023 METHADONE REAGENT AND CUTOFF CHANGE Due to reagent kit shell molder extended backorder, an alternate kit has been validated and implemented by [facility]. This test kit detects EDDP, the metabolite of methadone. The following cutoff applies to this result: <100 ng/mL Negative >=100 ng/mL Presumptive Positive for EDDP Opiates Urine Negative Cutoff 300 ng/mL 05/04/2023 12:53 PM CDT [facility] ([facility]) Phencyclidine Urine Screen Negative Cutoff 25 ng/mL 05/04/2023 12:53 PM CDT [facility]) Propoxyphene Urine Screen Negative Cutoff 300 ng/mL 05/04/2023 12:53 PM CDT [facility]) Creatinine Urine 61.9 20.0 - 400.0 mg/dL 05/04/2023 12:53 PM CDT [facility]) CDASU 9 COMMENTS See Note 05/04/20 12:53 PM CDT [facility] ([facility]) Comment: INTERPRETIVE INFORMATION: Drug Panel 9, Urn, [...] opioid testing can be ordered. Refer to [employer] for test information. For medical purposes only; not valid for forensic use. Performed By: [facility] [address] [place] [address] Territory Sales Executive: Eugene Richmond MD, PhD CLIA Number: [id number] Urine URINE / Unknown Collection / Unknown 05/03/2023 8:28 AM CDT 05/03/2023 8:34 AM CDT Melecio Graves MD LAB - URINE CHEMISTR Y ORDERABLES Performing Organization Address [facility] de Phone Number [facility] [employer] [facility]) [address] [place] [address] * FOFANA/CLOTHING SUPERVISOR (FRANCESCA) ANTIBODY IGG (04/26/2023 9:46 AM CDT) Pathologist [facility] Fofana/CLOTHING SUPERVISOR (FRANCESCA) Antibody IgG 2 0 - 19 Units 04/28/2023 9:44 AM CDT [facility] [employer] ([facility]) Comment: INTERPRETIVE INFORMATION: Fofana/CLOTHING SUPERVISOR (FRANCESCA) Antibody, IgG 19 Units or Less ............. Negative 20 to 39 Units ............... Weak Positive 40 to 80 Units ............... Moderate Positive 81 Units or greater .......... Strong Positive Fofana/CLOTHING SUPERVISOR antibodies are frequently seen in patients with mixed connective tissue disease (MCTD) and are also associated with other systemic autoimmune rheumatic diseases (SARDs) such as systemic lupus erythematosus (SLE), systemic sclerosis, and myositis. Antibodies targeting the Fofana/CLOTHING SUPERVISOR antigenic complex also recognize Fofana antigens, therefore, the Fofana antibody response must be considered when interpreting these results. Performed By: [facility] [address] [place] [address] Territory Sales Executive: Eugene Richmond MD, PhD CLIA Number: [id number] Blood BLOOD SPECIMEN / Unknown Lab Venipuncture / Unknown 04/26/2023 9:46 AM CDT 04/26/2023 10:05 AM CDT Sameera Fitzgerald MD LAB - CHEMISTRY ORDE ANASTACIO Performing Organization Address [facility] Co de Phone Number [facility] [employer] [facility]) [address] * BILL ONLY THROMBIN TIME (04/26/2023 9:45 AM CDT) Only the most recent of2 resultswithin the time period is included. Lab Bill Only Tests For Interface Bill Only 04/28/2023 8:27 PM CDT [facility] [employer] ([facility]) Blood BLOOD SPECIMEN / Unknown Lab Venipuncture / Unknown 04/26/2023 9:45 AM CDT 04/26/2023 10:06 AM CDT Melecio Graves MD LAB - COAGULATION OR DERABLES Performing Organization Address [facility] de Phone Number [facility]) [address] [place] [address] * BILL ONLY PTT-D 1:1 MIX (04/26/2023 9:45 AM CDT) Only the most recent of2 resultswithin the time period is included. Lab Bill Only Tests For Interface Bill Only 04/28/2023 8:27 PM CDT [employer] [facility]) Blood BLOOD SPECIMEN / Unknown Lab Venipuncture / Unknown 04/26/2023 9:45 AM CDT 04/26/2023 10:06 AM CDT Melecio Graves MD LAB - COAGULATION OR DERABLES Performing Organization Address City/[facility] de Phone Number [facility]) [address] [place] [address] * COMPLEMENT ACTIVITY TOTAL (CH50) (04/26/2023 9:45 AM CDT) Complement Activity Total CH50 44.8 38.7 - 89.9 U/mL 04/27/2023 9:52 PM CDT [facility] [employer] [facility]) Comment: Normal activity in total complement [...] complement alternate pathway functional (AH50, test code [id number]) activity suggests defects in the alternate pathway. REFERENCE INTERVAL: Complement Activity Total, (CH50) 38.6 U/mL or less ..........Low 38.7-89.9 U/mL .............Normal 90.0 U/mL or greater .......High Performed By: [facility] [address] [place] [address] Territory Sales Executive: Eugene Richmond MD, PhD CLIA Number: [id number] Blood BLOOD SPECIMEN / Unknown Lab Venipuncture / Unknown 04/26/2023 9:45 AM CDT 04/26/2023 10:05 AM CDT Sameera Fitzgerald MD LAB - CHEMISTRY FREDO CHAVES [facility] Organization Address City/State/ZIP Co de Phone Number [employer] ([facility]) [address] [place] [address] * (ABNORMAL) ANTIPHOSPHOLIPID ANTIBODY PANEL (04/26/2023 9:45 AM CDT) Only the most recent of2 resultswithin the time period is included. Pathologist [facility] Cardiolipin Antibody IgG <10 <=14 GPL 04/28/2023 7:27 PM CDT [facility] [employer] ([facility]) Comment: INTERPRETIVE INFORMATION: Anti-Cardiolipin IgG Ab <=14 [...] IgM <10 <=12 MPL 04/28/2023 7:27 PM [facility] ([facility]) Comment: INTERPRETIVE INFORMATION: Anti-Cardiolipin IgM <=12 MPL: [...] IgG <10 <=20 SGU 04/28/2023 7:27 PM [facility] ([facility]) Beta-2 Glycoprotein Antibody IgM <10 <=20 SMU 04/28/2023 7:27 PM [facility] ([facility]) Comment: INTERPRETIVE INFORMATION: [id number] I, IgG and IgM Antibody The persistent [...] sec 04/28/2023 7:27 PM CDT [facility] ([facility]) PTT Lupus Anticoagulant 57(H) 32 - 48 sec 04/28/2023 7:27 PM CDT [facility] ([facility]) Thrombin Time 19.2 14.7 - 19.5 sec 04/28/2023 7:27 PM CDT [facility] ([facility]) Reptilase Time Not Applicable <=21.9 sec 04/28/2023 7:27 PM CDT [facility] ([facility]) PTT Heparin Neutralized Not Applicable 32 - 48 sec 04/28/2023 7:27 PM CDT [facility]) PTT 1/1 Mix 42 32 - 48 sec 04/28/2023 7:27 PM CDT [facility]) Platelet Neutralization Not Applicable Negative 04/28/2023 7:27 PM CDT [facility]) dRVVT 38 33 - 44 sec 04/28/2023 7:27 PM CDT [facility]) dRVVT 1:1 Mix Not Applicable 33 - 44 sec 04/28/2023 7:27 PM CDT [facility]) dRVVT Confirmatory Test Not Applicable Negative ratio 04/28/2023 7:27 PM CDT [facility] ([facility]) Hexagonal Phospholipid Neutral Not Applicable Negative 04/28/2023 7:27 PM CDT [facility] ([facility]) Interpretation Lupus Anticoagulant See Note 04/28/2023 7:27 PM CDT [facility] ([facility]) Comment: Lupus anticoagulant not detected. The PTT [...] has not already been performed. Performed By: [facility] [employer] [address] [place] [address] Territory Sales Executive: Eugene Richmond MD, PhD CLIA Number: [id number] Blood BLOOD SPECIMEN / Unknown Lab Venipuncture / Unknown 04/26/2023 9:45 AM CDT 04/26/2023 10:06 AM CDT Melecio Graves MD LAB - SEROLOGY ORDER MALIHA [facility]) [address] [place] [address], [facility] * FOFANA (SM) ANTIBODY FRANCESCA (04/26/2023 9:45 AM CDT) [facility] Fofana (FRANCESCA) Antibody 6 0 - 40 AU/mL 04/29/2023 12:42 AM CDT [facility] [employer] ([facility]) Comment: INTERPRETIVE INFORMATION: Fofana (FRANCESCA) Antibody, IgG 29 AU/mL or Less ............. Negative 30 - 40 AU/mL ................ Equivocal 41 AU/mL or Greater .......... Positive Fofana antibody is highly specific (greater than 90 percent) for systemic lupus erythematosus (SLE) but only occurs in 30-35 percent of SLE cases. The presence of antibodies to Fofana has variable associations with SLE clinical manifestations. Performed By: [employer] [address] [place] [address] Territory Sales Executive: Eugene Richmond MD, PhD CLIA Number: [id number] Blood BLOOD SPECIMEN / Unknown Lab Venipuncture / Unknown 04/26/2023 9:45 AM CDT 04/26/2023 10:05 AM CDT Sameera Fitzgerald MD LAB - CHEMISTRY FREDO CHAVES Performing Organization Address City/[facility]/ZIP Co de Phone Number [employer] ([facility]) [address] * DNA ANTIBODY DOUBLE STRANDED (04/26/2023 9:45 AM CDT) dsDNA Antibody 15 0 - 24 IU 04/29/2023 6:20 PM CDT [employer] ([facility]) Comment: INTERPRETIVE INFORMATION: Double-Stranded DNA (dsDNA) Ab IgG ELICEO 24 IU or less........Negative 25-30 IU.............Borderline Positive 30-60 IU.............Low Positive 60-200 IU............Positive 201 IU or greater....Strong Positive Positivity for anti-double stranded DNA (anti-dsDNA) IgG antibody is a diagnostic criterion of systemic lupus erythematosus (SLE). Specimens are initially screened by enzyme-linked immunosorbent assay (ELICEO). If ordered as reflex ([id number]), positive ELICEO results (>24 IU) will be [...] recommendations for testing may be found at [email or web address]. Performed By: [facility] [address] [place] [address] Territory Sales Executive: Eugene Richmond MD, PhD CLIA Number: [id number] Blood BLOOD SPECIMEN / Unknown Lab Venipuncture / Unknown 04/26/2023 9:45 AM CDT 04/26/2023 10:05 AM CDT Sameera Fitzgerald MD LAB - HEMATOLOGY JAYMIE SOTO Performing Organization Address City/[facility]/ZIP Co de Phone Number [employer] ([facility]) [address] * COMPLEMENT C4 (04/26/2023 9:45 AM CDT) Only the most recent of2 resultswithin the time period is included. [facility] Complement C4 17 15 - 57 mg/dL 04/26/2023 10:32 AM CDT [facility] Blood BLOOD SPECIMEN / Unknown Lab Venipuncture / Unknown 04/26/2023 9:45 AM CDT 04/26/2023 10:07 AM CDT Sameera Fitzgerald MD LAB - SEROLOGY ORDER MALIHA Performing Organization Address City/[facility]/ZIP Co de Phone Number [facility] [address] [place] [address], [place] [phone] * (ABNORMAL) COMPLEMENT C3 (04/26/2023 9:45 AM CDT) Only the most recent of2 resultswithin the time period is included. [facility] Complement C3 74(L) 82 - 193 mg/dL 04/26/2023 10:32 AM CDT [facility] Blood BLOOD SPECIMEN / Unknown Lab Venipuncture / Unknown 04/26/2023 9:45 AM CDT 04/26/2023 10:07 AM CDT Sameera Fitzgerald MD LAB - CHEMISTRY ORDE ANASTACIO Performing Organization Address City/[facility]/ZIP Co de Phone Number [facility] [address] [place] [address], [place] [phone] * VAS CAROTID DUPLEX BILATERAL (02/13/2023 10:18 AM CDT) Anatomical Region Laterality Modality Neck Intravascular Ul trasound 02/13/2023 9:41 AM CDT Narrative Procedure Note Patric Dave MD - 02/13/2023 Melecio Graves MD VASCULAR LAB ORDERAB LES * BILL ONLY REPTILASE TIME (01/29/2023 11:02 AM CDT) Pathologist [facility] Lab Bill Only Tests For Interface Bill Only 01/31/2023 2:06 PM CDT [facility] ([facility]) Blood BLOOD SPECIMEN / Unknown Lab Venipuncture / Unknown 01/29/2023 11:02 AM CDT 01/29/2023 11:16 AM CDT Melecio Graves MD LAB - COAGULATION OR DERABLES Performing Organization Address City/[facility] Co de Phone Number [facility] ([facility]) [address] * BILL ONLY HEPARIN NEUTRALIZATION (01/29/2023 11:02 AM CDT) Lab Bill Only Tests For Interface Bill Only 01/31/2023 2:06 PM CDT [facility] [employer] ([facility]) Blood BLOOD SPECIMEN / Unknown Lab Venipuncture / Unknown 01/29/2023 11:02 AM CDT 01/29/2023 11:16 AM CDT Melecio Graves MD LAB - COAGULATION OR DERABLES Performing Organization Address City/[facility] de Phone Number [facility] ([facility]) [address] * IR ANGIO AV SHUNT IMAGING [...] set followed by the placement of a 5-Welsh catheter. Multiple DSA images were obtained to visualize the dialysis access from the arterial anastomosis through the superior vena cava. At the end of the procedure, the 5-Welsh catheter was removed, manual pressure was held [...] Kev Mcdonald M.D. Vascular and Interventional Radiology [facility] [phone] CC: Patient's odd piece checker: Dr. Bashir Norris Dialysis unit: [facility] Bashir Norris MD IR ORDERABLES * CT [...] DATE/TIME OF EXAM: 01/15/2023 2:16 PM, LOCATION [facility] INDICATION: Z01.818: Pre-transplant evaluation for liver transplant [...] DATE/TIME OF EXAM: 12/26/2022 1:34 PM, LOCATION [facility] INDICATION: K72.90: Decompensated hepatic cirrhosis (CMS/HCC) K74.60: [...] below > Dictated by Javier Garrison MD (Pipe Line Maintenance Supervisor) 12/27/2022 1:23 PM ISaqib MD have personally reviewed and interpreted this examination/study. > Interpreting Provider: Saqib Montanez MD on 12/27/2022 7:37 PM Procedure Note Saqib Montanez MD - 12/27/2022 PROCEDURE: DEXA BONE DENSITY AXIAL SKELETON, DATE/TIME OF EXAM:12/26/2022 1:34 PM, LOCATION [facility] INDICATION: K72.90: Decompensated hepatic cirrhosis (CMS/HCC) K74.60: [...] below > Dictated by Javier Garrison MD (Pipe Line Maintenance Supervisor) 12/27/2022 1:23 PM I, Saqib Montanez MD have personally reviewed and interpreted this examination/study. > Interpreting Provider: Saqib Montanez MD on 12/27/2022 7:37 PM Melecio Graves MD DEXA ORDERABLES * (ABNORMAL) CYTOPLASMIC PATTERN (12/07/2022 1:03 PM CDT) Cytoplasmic Pattern Titer 1:160(A) 12/10/2022 8:26 PM CDT [employer] ([facility]) Cytoplasmic Pattern AMA(A) 12/10/2022 8:26 PM CDT [facility] ([facility]) Comment: Performed By: [facility] [address] [place] [address] Territory Sales Executive: Eugene Richmond MD, PhD Blood BLOOD SPECIMEN / Unknown Lab Venipuncture / Unknown 12/07/2022 1:03 PM CDT 12/07/2022 1:29 PM CDT Melecio Graves MD LAB - CHEMISTRY MAKINENGerhard [facility] Performing Organization Address [facility] de Phone Number [facility] ([facility]) [address] [place] [address] * (ABNORMAL) VELIA BLOOD SINGLE PATTERN (12/07/2022 1:03 PM CDT) Pathologist [facility] VELIA Pattern Speckled( A) 12/10/2022 8:26 PM CDT [facility] ([facility]) VELIA Titer 1:160(A) 12/10/2022 8:26 PM CDT [facility]) Comment: Performed By: [facility] [address] [place] [address] Territory Sales Executive: Eugene Richmond MD, PhD Blood BLOOD SPECIMEN / Unknown Lab Venipuncture / Unknown 12/07/2022 1:03 PM CDT 12/07/2022 1:29 PM CDT Melecio Graves MD LAB - CHEMISTRY FREDO CHAVES Performing Organization Address [facility] de Phone Number [facility]) [address] [place] [address] * HLA TYPING DNA LOW RESOLUTION DR,DQ (12/07/2022 1:03 PM CDT) Only the most recent of2 resultswithin the time period is included. DR DQ Low Resolution DRB1-1 *01 12/21/2022 11:11 AM CDT [facility] ([facility]) DR DQ Low Resolution DRB1-2 *04 12/21/2022 11:11 AM CDT [facility] ([facility]) DR DQ Low Resolution DQB1-1 *03 (DQ7) 12/21/2022 11:11 AM CDT [facility] ([facility]) DR DQ Low Resolution DQB1-2 *05 12/21/2022 11:11 AM CDT [facility] ([facility]) DR DQ Low Resolution DRB3-1 Negative 12/21/2022 11:11 AM CDT [facility] ([facility]) DR DQ Low Resolution DRB3-2 Negative 12/21/2022 11:11 AM CDT [facility] ([facility]) DR DQ Low Resolution DRB4-1 *01 12/21/2022 11:11 AM CDT [facility] ([facility]) DR DQ Low Resolution DRB4-2 Negative 12/21/2022 11:11 AM CDT [facility] ([facility]) DR DQ Low Resolution DRB5-1 Negative 12/21/2022 11:11 AM CDT [facility] ([facility]) DR DQ Low Resolution DRB5-2 Negative 12/21/2022 11:11 AM CDT [facility] ([facility]) DR DQ Low Resolution Methodology Real Time PCR 12/21/2022 11:11 AM CDT [facility] ([facility]) DR DQ Low Resolution test date [id number] 12/21/2022 11:11 AM CDT [facility] ([facility]) Comment: This test was developed and its performance characteristics determined by the [facility]. It has not been cleared or [...] high complexity clinical laboratory testing. CLIA ID# [id number] Performed at: [facility], [address] [place] [phone] Chemical Checker:Dr. Juan Lockwood, PhD, Blood BLOOD SPECIMEN / Unknown Lab Venipuncture / Unknown 12/07/2022 1:03 PM CDT 12/07/2022 1:27 PM CDT Melecio Graves MD LAB - BLOOD BANK ORD ERABLES [facility] ([facility]) [address] [place] [address], [facility] * HLA TYPING DNA LOW RESOLUTION A,B,C (12/07/2022 1:03 PM CDT) Only the most recent of2 resultswithin the time period is included. ABC DNA A1 *02 12/21/2022 11:06 AM CDT [facility] ([facility]) ABC DNA A2 *32 12/21/2022 11:06 AM CDT [facility] ([facility]) ABC DNA B1 *18 12/21/2022 11:06 AM CDT [facility] ([facility]) ABC DNA B2 *44 12/21/2022 11:06 AM CDT [facility] ([facility]) ABC DNA BW1 6 12/21/2022 11:06 AM CDT [facility] ([facility]) ABC DNA BW2 4 12/21/2022 11:06 AM CDT [facility] ([facility]) ABC DNA C1 *05 12/21/2022 11:06 AM CDT [facility] ([facility]) ABC DNA C2 *07 12/21/2022 11:06 AM CDT [facility] ([facility]) ABC DNA Methodology Real Time PCR 12/21/2022 11:06 AM CDT [facility] ([facility]) ABC DNA Test Date [id number] 11:06 AM CDT [facility] ([facility]) Comment: This test was developed and its performance characteristics determined by the [facility]. It has not been cleared or [...] high complexity clinical laboratory testing. CLIA ID# [id number] Performed at: [facility], [address] [place] [phone] Chemical Checker:Dr. Juan Lockwood, PhD, Blood BLOOD SPECIMEN / Unknown Lab Venipuncture / Unknown 12/07/2022 1:03 PM CDT 12/07/2022 1:27 PM CDT Melecio Graves MD LAB - BLOOD BANK ORD ERABLES [facility] ([facility]) [address] [place] [address], [facility] * (ABNORMAL) VELIA HEP-2 IGG BY IFA (12/07/2022 1:03 PM CDT) VELIA HEp-2 IgG Detected (H) <1:80 12/10/2022 8:25 PM CDT [facility] ([facility]) VELIA Interpretive Comment See Note 12/10/2022 8:25 PM CDT [facility] ([facility]) Comment: Speckled Pattern Clinical associations: SLE, SSc, SjS, DM, PM, MCTD, UCTD. May also be found in healthy individuals Main autoantibodies: Anti-SSA-52 (Ro52), anti-SSA-60 (Ro60), anti-SS-B/LA, anti-Jaime-1 (anti-Scl-70), Fofana, anti-U1-CLOTHING SUPERVISOR, anti-U2-CLOTHING SUPERVISOR, anti-Mi-2, anti-p155/140 (TIF1g), anti-Ku, anti-RNA polymerase, anti-DFS70/LEDGF-P75 [...] not necessarily rule out SARD. Performed By: [employer] [address] [id number] Territory Sales Executive: Eugene Richmond MD, PhD Blood BLOOD SPECIMEN / Unknown Lab Venipuncture / Unknown 12/07/2022 1:03 PM CDT 12/07/2022 1:29 PM CDT Melecio Graves MD LAB - SEROLOGY ORDER MALIHA [employer] [facility]) [address] [place] [address], [facility] * SMOOTH MUSCLE ANTIBODY W REFLEX TITER (12/07/2022 1:03 PM CDT) F-Actin Antibody IgG 11 0 - 19 Units 12/09/2022 1:05 AM CDT [facility] [employer] ([facility]) Comment: If F-Actin (Smooth Muscle) Antibody, IgG [...] suspicion for AIH is strong. Performed By: [facility] [address] [place] [address] Territory Sales Executive: Eugene Richmond MD, PhD Blood BLOOD SPECIMEN / Unknown Lab Venipuncture / Unknown 12/07/2022 1:03 PM CDT 12/07/2022 1:28 PM CDT Melecio Graves MD LAB - SEROLOGY ORDER MALIHA [facility] [employer] [facility]) [address] [place] [address] * (ABNORMAL) OXALATE BLOOD (12/07/2022 1:03 PM CDT) Oxalate 18.0(H) <=2.0 umol/L 12/11/2022 9:48 PM CDT [facility] [employer] ([facility]) Comment: INTERPRETIVE INFORMATION: Oxalate, Plasma This test was developed and its performance characteristics determined by [facility]. It has not been cleared or approved by the US Food and Drug Administration. This test was performed in a CLIA certified laboratory and is intended for clinical purposes. Performed By: [facility] [address] [place] [address] Territory Sales Executive: Eugene Richmond MD, PhD Blood BLOOD SPECIMEN / Unknown Lab Venipuncture / Unknown 12/07/2022 1:03 PM CDT 12/07/2022 1:21 PM CDT Melecio Graves MD LAB - CHEMISTRY ORDE RABLES [facility]) [address] [place] [address] * MITOCHONDRIAL ANTIBODY SCREEN (12/07/2022 1:03 PM CDT) Only the most recent of2 resultswithin the time period is included. Mitochondrial M2 Antibody 6.1 0.0 - 24.9 Units 12/09/2022 1:06 AM CDT [facility] ([facility]) Comment: REFERENCE INTERVAL: Mitochondrial (M2) Antibody, IgG [...] does not rule out PBC. Performed By: [employer] [address] [place] [address] Territory Sales Executive: Eugene Richmond MD, PhD Blood BLOOD SPECIMEN / Unknown Lab Venipuncture / Unknown 12/07/2022 1:03 PM CDT 12/07/2022 1:28 PM CDT Melecio Graves MD LAB - CHEMISTRY FREDO CHAVES [facility]) [address] [place] [address] * TSH REFLEX FREE T4 (12/07/2022 1:03 PM CDT) TSH 1.219 0.350 - 4.940 uIU/mL 12/07/2022 2:21 PM CDT [facility] Blood BLOOD SPECIMEN / Unknown Lab Venipuncture / Unknown 12/07/2022 1:03 PM CDT 12/07/2022 1:27 PM CDT Melecio Graves MD LAB - CHEMISTRY FREDO CHAVES [address] [address], [facility] [phone] * CBMOG-0-GQDJEHURORX BLOOD PHENOTYPING PANEL (12/07/2022 1:03 PM CDT) Only the most recent of2 resultswithin the time period is included. 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 The M allele protein product is a normal variant. The S allele protein product is a deficiency variant that is associated with a less severe deficiency (approximately 60 percent of normal serum concentrations) of the nvrdk-4-wknpllif inhibitor than the classic Z variant (approximately 15 percent of normal serum concentrations). Individuals with this phenotype are rarely at risk for development of tptuq-0-otsuwhnm inhibitor deficiency-related hepatic or pulmonary disease. Caution in interpretation is advised if the patient has been transfused in the previous 21 days. Performed By: [facility] [address] [place] [address] Territory Sales Executive: Eugene Richmond MD, PhD Vfltm-8-Xpqsujyqq in 119 90 - 200 mg/dL 12/09/2022 5:32 PM CDT [employer] ([facility]) Comment:To convert to umol/L , multiply mg/dL by 0.185 Blood BLOOD SPECIMEN / Unknown Lab Venipuncture / Unknown 12/07/2022 1:03 PM CDT 12/07/2022 1:30 PM CDT Melecio Graves MD LAB - CHEMISTRY FREDO CHAVES [facility] Organization Address City/State/ZIP Co de Phone Number [employer] [facility]) [address] [place] [address] * (ABNORMAL) VELIA BLOOD SCREEN W/REFLEX TITER (12/07/2022 1:03 PM CDT) Only the most recent of2 resultswithin the time period is included. Pathologist [facility] VELIA IgG Detected (A) None Detected 12/08/2022 11:53 PM CDT [employer] ([facility]) Comment: Antibodies to Anti-Nuclear Antibodies (VELIA) detected. [...] dsDNA, histones, SS-A (Ro), SS-B (La), Fofana, [employer]ofana/CLOTHING SUPERVISOR, Scl-70, Bella-1, centromeric proteins, other antigens extracted from the HEp-2 cell nucleus. VELIA ELICEO assays have been reported to have lower sensitivities than VELIA IFA for systemic autoimmune rheumatic diseases (SARD). Negative results do not necessarily rule out SARD. Performed By: [facility] [address] [place] [address] Territory Sales Executive: Eugene Richmond MD, PhD Blood BLOOD SPECIMEN / Unknown Lab Venipuncture / Unknown 12/07/2022 1:03 PM CDT 12/07/2022 1:29 PM CDT Melecio Graves MD LAB - CHEMISTRY ORDGerhard CHAVES Performing Organization Address City/[facility]/ZIP Co de Phone Number [address] * CERULOPLASMIN (12/07/2022 1:03 PM CDT) Only the most recent of2 resultswithin the time period is included. [facility] Ceruloplasmin 25 20 - 60 mg/dL 12/07/2022 2:30 PM CDT [facility] Blood BLOOD SPECIMEN / Unknown Lab Venipuncture / Unknown 12/07/2022 1:03 PM CDT 12/07/2022 1:30 PM CDT Melecio Graves MD LAB - CHEMISTRY FREDO HCAVES [address] [address], [facility] [phone] * G6PD QUANTITATIVE (12/07/2022 1:03 PM CDT) Pathologist [facility] G-6-PD 12.3 9.9 - 16.6 U/g Hb 12/10/2022 2:40 AM CDT [employer] ([facility]) Comment: Performed By: [facility] [address] [place] [address] Territory Sales Executive: Eugene Richmond MD, PhD Blood BLOOD SPECIMEN / Unknown Lab Venipuncture / Unknown 12/07/2022 1:03 PM CDT 12/07/2022 1:21 PM CDT Melecio Graves MD LAB - CHEMISTRY FREDO CHAVES [employer] ([facility]) [address] [place] [address], [facility] * [place] LARYNGOSCOPY,FLEX FIBER,DIAGNOSTIC (11/29/2022 3:49 PM CDT) Narrative Polo Mesa MD - 11/29/2022 3:49 PM CDT Polo Mesa MD 11/29/2022 3:51 PM Procedure Note Anesthesia: Lidocaine 2% and Yohan-Synephrine 1/2% Endoscopy Type: Flexible Zgnpi-Ksfcjmjjrbfvxj-Lqigtxcdedbe Procedure Details: Informed consent was obtained. The [...] hemodialysis catheter is requested. Diagnosis code: N18.6 box blank machine operator helper: Dr. Mohsen Parham Technique: The risks, benefits, [...] Kev Mcdonald M.D. Vascular and Interventional Radiology [facility] V[facility] Access Center [phone] CC: Patient's odd piece checker: Dr. Bashir Norris Dialysis unit: [facility] Bashir Norris MD IR ORDERABLES * ETT LINE PERFORMABLE (02/21/2022 9:00 AM CDT) Narrative Alma Delia Madsen MD - 02/21/2022 9:00 AM CDT Jose Guzman APRN-AFTER SCHOOL PROGRAM DIRECTOR 02/21/2022 9:00 AM Endotracheal Tube Placement: Patient Location: OR. Intubation Event Date/Time: 02/21/2022 8:06 AM Procedure: intubation (27623). Procedure Section: Sedation: IV sedation. Indications for [...] AM. Staff Section Anesthesia Provider: Jose Guzman, AIRPORT REPRESENTATIVE-AFTER SCHOOL PROGRAM DIRECTOR, Performed the procedure Provider #1: Alma Delia Madsen MD. Alma Delia Madsen MD GENERAL ANESTHESIA O RDERABLES * TRANSFUSE PLATELETS IN ML(S) (02/21/2022 8:31 AM CDT) Alma Delia Madsen MD NURSING - BLOOD PROD TRANSFUSION * TROPONIN I (08/09/2021 1:24 PM CLUTCH INSPECTOR) Only the most recent of5 resultswithin the time period is included. Troponin I 0.030 <0.032 ng/mL 08/09/2021 2:03 PM CLUTCH INSPECTOR [facility] LABORATORY [facility] Blood BLOOD SPECIMEN / Unknown Venipuncture / Unknown 08/09/2021 1:24 PM CLUTCH INSPECTOR 08/09/2021 1:32 PM CLUTCH INSPECTOR Joey Parra PA-C LAB - CHEMISTRY OR DERABLES [address] [address], [facility] [phone] * MRI BRAIN WO CONTRAST (07/19/2021 9:56 PM CLUTCH INSPECTOR) Anatomical Region Laterality Modality Head Magnetic Resonan ce 07/20/2021 6:40 AM CLUTCH INSPECTOR Impressions 07/20/2021 6:47 AM CLUTCH INSPECTOR IMPRESSION: 1.No evidence of restricted diffusion to suggest an acute infarction. 2.Suspected subtle dilation of the left optic nerve sheaths. Please correlate with fundus examination. 3.Paranasal sinus disease as outlined. This report was electronically signed by KRISTIN DAVIDSON on 07/20/2021 6:47 AM . Narrative 07/20/2021 6:47 AM CLUTCH INSPECTOR MRI BRAIN WO CONTRAST DATE: 07/19/2021 9:56 [...] by KRISTIN DAVIDSON on07/20/2021 6:47 AM . Noel Sarkar MD MR ORDERABLES * CT ANGIO BRAIN NECK STROKE (07/19/2021 10:45 AM CLUTCH INSPECTOR) Anatomical Region Laterality Modality Head Computed Tomogra phy 07/19/2021 10:4 9 AM CLUTCH INSPECTOR Impressions 07/19/2021 11:30 AM CLUTCH INSPECTOR IMPRESSION: 1.Patent proximal intracranial arteries. 2.Overall slightly [...] 11:30 AM . Narrative 07/19/2021 11:30 AM CLUTCH INSPECTOR EXAMINATION: CT angiography of the brain CT [...] arteries are visualized with origin of bilateral agribusiness professor. There is no aneurysm or other vascular [...] arteries are visualized with origin of bilateral agribusiness professor. There is no aneurysm or other vascular [...] Sarkar MD CT ORDERABLES * (ABNORMAL) PTT [facility] (07/19/2021 10:42 AM CLUTCH INSPECTOR) Only the most recent of5 resultswithin the time period is included. APTT 39.3(H) 23.0 - 38.4 Seconds 07/19/2021 12:11 PM CLUTCH INSPECTOR [facility] Comment:Suggested therapeuti c range for full dose I.V. unfractionated heparin therapy for venous thromboembolism is 71 to 109 seconds. Blood BLOOD SPECIMEN / Unknown Venipuncture / Unknown 07/19/2021 10:42 AM CLUTCH INSPECTOR 07/19/2021 11:08 AM CLUTCH INSPECTOR Noel Sarkar MD LAB - COAGULATION OR DERABLES [address] [address], [facility] [phone] * (ABNORMAL) INR WHOLE BLOOD - POINT OF CARE (IP) STROKE (07/19/2021 10:41 AM CLUTCH INSPECTOR) INR 1.4(H) 0.9 - 1.2 07/19/2021 10:42 AM [facility] Device [id number] 07/19/2021 10:42 AM [facility] Respiratory Technician ID [id number] 07/19/2021 10:42 AM [facility] Blood BLOOD SPECIMEN / Unknown 07/19/2021 10:41 AM CLUTCH INSPECTOR 07/19/2021 10:42 AM CLUTCH INSPECTOR Noel Sarkar MD LAB - POINT OF CARE ORDERABLES Performing Organization Address City/[facility]/ZIP Co de Phone Number [address] [address], [facility] [phone] * (ABNORMAL) CREATININE - POCT INTERFACED (07/19/2021 10:41 AM CLUTCH INSPECTOR) [facility] Creatinine POCT 2.81(H) 0.30 - 1.30 mg/dL 07/20/2021 12:51 PM [facility] eGFR 24(L) >60 mL/min/1.7 3 m2 07/20/2021 12:51 PM [facility] Blood BLOOD SPECIMEN / Unknown 07/19/2021 10:41 AM CLUTCH INSPECTOR 07/20/2021 12:51 PM CLUTCH INSPECTOR Noel Sarkar MD LAB - POINT OF CARE ORDERABLES Performing Organization Address [facility]/ZIP Co de Phone Number [address] [address], [facility] [phone] * CT BRAIN - Stroke (07/19/2021 10:36 AM CLUTCH INSPECTOR) Anatomical Region Laterality Modality Head Computed Tomogra phy 07/19/2021 10:4 3 AM CLUTCH INSPECTOR Addenda Addendum by Jayne Correa MD on 07/19/2021 11:07 AM CLUTCH INSPECTOR ORIGINAL REPORT EXAMINATION: Computed tomography (CT) of [...] 11:04 AM . Impressions 07/19/2021 10:47 AM CLUTCH INSPECTOR IMPRESSION: 1.Hypodensity in the right basal ganglia and possibly insula with effacement of grace-white matter differentiation, most compatible with hyperacute infarct in appropriate clinical setting. 2.No critical mass effect. No acute hemorrhage. This report was electronically signed by JAYNE CORREA on 07/19/2021 10:47 AM . Narrative 07/19/2021 10:47 AM CLUTCH INSPECTOR EXAMINATION: Computed tomography (CT) of the head [...] MD 12/17/2020 11:54 PM Dominga Cuello 1965 [id number] Interventional Nephrology Procedure Date: 12/17/2020 Attending Surgeon and performing the procedure: Kimo Flores MD Frit Coater: RT Fernando Medical indication for the procedure: The patient is a 55-year-old man with end-stage renal disease who is dialyzing through a right internal jugular vein tunneled dialysis catheter referred for repair of the arterial extension of the catheter due to a fracture clamp. Procedures Performed: 1. CATHETER PLACEMENT: REPAIR OF TUNNELED OR NON-TUNNELED CVC; 86604 Findings: 1. The clamp of the arterial [...] placed on a stretcher in the recovery [place]. At bedside time-out was performed. Maximum sterile [...] dialysis. Kimo Flores MD 12/17/2020 11:50 PM [facility] VAC 314 - [phone] Bashir Norris MD [facility] Bashir Norris MD IR ORDERABLES * SARS-COV-2 (COVID-19) PRE-SURGICAL/PROCEDURE (09/20/2020 4:02 PM CDT) COVID-19 PCR Not detected Not detected 09/20/2020 10:[address] [facility] MICROBIOLOGY Microbiology SPECIMEN FROM NASOPHARYNGEAL STRUCTURE / Unknown Collection / Unknown 09/20/2020 4:02 PM CDT 09/20/2020 4:[address] [facility]CROBIOLOG[facility] - 09/20/2020 10:10 PM CDT This nucleic acid amplification assay performance was validated by [facility]biology [facility]. This test has been [...] assay are available upon request. Dinah Grier APRN-VALVE INSERTER LAB - MICROBIOL OGY ORDERABLES [facility] MICROBIOLOG[facility] [address] [place], [place] [address], [facility] [phone] * ETHYL GLUCURONIDE URINE QUAL W/REFLEX (04/19/2020 9:55 AM CDT) Ethyl Glucuronide Screen w/Reflex Urine Positive Cutoff 500 ng/mL 04/21/2020 12:43 AM CDT [employer] ([facility]) Comment: If the screen is positive, then [...] (LC-MS/MS). Test developed and characteristics determined by [facility]. See Compliance Statement B: [employer]/CS Performed By: [facility] [address] [place] [address] Territory Sales Executive: Gisela Galan MD Urine URINE SPECIMEN OBTAINED BY CLEAN CATCH PROCEDURE / Unknown Collection / Unknown 04/19/2020 9:55 AM CDT 04/19/2020 10:31 AM CDT Melecio Graves MD LAB - URINE CHEMISTR Y ORDERABLES Performing Organization Address City/[facility]/ZIP Co de Phone Number [employer] ([facility]) [address] [place] [phone] * DRUG SCREEN TOX URINE PANEL (04/19/2020 9:55 AM CDT) Only the most recent of2 resultswithin the time period is included. [facility] Amphetamines Screen Urine Negative Negative: < 1000 ng/mL 04/19/2020 11:05 AM T [facility] Barbiturates Screen Urine Negative Negative: < 200 ng/mL 04/19/2020 11:05 AM [facility] Benzodiazepine Screen Urine Negative Negative: < 200 ng/mL 04/19/2020 11:05 AM [facility] Opiates Urine Negative Negative: < 300 ng/mL 04/19/2020 11:05 AM [facility] Cocaine Metabolites Urine Negative Negative: < 300 ng/mL 04/19/2020 11:05 AM [facility] Phencyclidine Screen Urine Negative Negative: < 25 ng/ml 04/19/2020 11:05 AM [facility] Cannabinoids Screen Urine Negative Negative: <50 ng/mL 04/19/2020 11:05 AM [facility] Methadone Screen Urine Negative Negative: < 300 ng/mL 04/19/2020 11:05 AM [facility] Fentanyl Screen Urine Negative Negative: <1.0 ng/mL 04/19/2020 11:05 AM [facility] Urine URINE / Unknown Collection / Unknown 04/19/2020 9:55 AM CDT 04/19/2020 10:31 AM CDT [facility] - 04/19/2020 11:05 AM CDT The Urine Toxicology Screening Panel does not screen for Propoxyphene, Meprobamate, Carisoprodol, Trazodone, hjxh-gmt-lmlwoof medications and/or volatiles (Acetone, Isopropanol, Methanol or Ethylene Glycol). Ethanol, Salicylate, Acetaminophen, Tricyclic Antidepressants and several therapeutic drugs may be individually assayed in serum or plasma specimen. Toxicology testing by the [facility] is an aid to medical diagnosis and treatment of patients. No documented chain of custody was maintained. Results are intended to be used for clinical purposes only. Melecio Graves MD LAB - URINE CHEMISTR Y ORDERABLES [facility] [address] [place] [address], [facility] [phone] * ENDOSCOPY, COLON, DIAGNOSTIC (01/12/2020 3:38 PM [...] entire procedure. 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 All rights reserved. The codes documented in this report are preliminary and upon resident associate review may be revised to meet current compliance requirements. _ Connor Virgen, 01/12/2020 4:25:45 PM Note Initiated On: 01/12/2020 3:38 PM Number of Addenda: 0 [facility] [address] [place] [address] [facility] [employer] 01/12/2020 3:38 PM CDT Connor Chavez [...] and oxygen saturations were monitored continuously. The [id number] was introduced through the anus and advanced to the cecum, identified by appendiceal orifice and ileocecal valve. The colonoscopy was performed without difficulty. The patient tolerated the procedure well. The quality of the bowel preparation was evaluated using the BBPS ([place] Bowel Preparation Scale) with scores of: Right [...] entire procedure. Procedure Code(s): --- Professional --- 47547, Colonoscopy, flexible; diagnostic, including collection of specimen(s) by brushing or washing, when performed (separate procedure) Diagnosis Code(s): --- Professional --- Z12.11, Encounter for screening for malignant neoplasm of colon CPT copyright 2019 [employer]. All rights reserved. The codes documented in this report are preliminary and upon resident associate review may be revised to meet current compliance requirements. _ Connor iVrgen, 01/12/2020 4:33:26 PM Note Initiated On: 01/12/2020 3:37 PM Number of Addenda: [address] [address] [facility] [employer] 01/12/2020 3:37 PM CDT Connor Chavez [...] the procedure. Procedure Code(s): --- Professional --- 08911, Abdominal paracentesis (diagnostic or therapeutic); with imaging guidance Diagnosis Code(s): --- Professional --- K70.31, Alcoholic cirrhosis of liver with ascites R18.8, Other ascites K74.60, Unspecified cirrhosis of liver K76.6, Portal hypertension N18.6, End stage renal disease CPT copyright 2019 [employer]. All rights reserved. The codes documented in this report are preliminary and upon resident associate review may be revised to meet current compliance requirements. Sharmila Rangel PA-C 01/12/2020 1:19:57 PM This report has been signed electronically. Carolyn Adames MD Note Initiated On: 01/12/2020 1:14 PM Number of Addenda: 0 [facility] [address] [place] [address] [facility] [employer] 01/12/2020 1:14 PM CDT Sharmila Rangel PA-C GI PROCEDURE OR DERABLES [facility] [employer] * (ABNORMAL) CELL COUNT W DIFFERENTIAL FLUID (01/12/2020 11:24 AM CDT) Only the most recent of18 resultswithin the time period is included. Color Fluid Other(A) Colorless, Straw 01/12/2020 12:24 PM CDT [facility] Comment:orange Clarity Fluid Hazy(A) Clear 01/12/2020 12:24 PM CDT [facility] Volume Fluid 3.0 mL 01/12/2020 12:24 PM CDT [facility] WBC Fluid 310 Reference Range Not Established /uL 01/12/2020 12:24 PM CDT [facility] RBC Fluid 7,000 Reference Range Not Established /uL 01/12/2020 12:24 PM CDT [facility] Differential Manual Differential to follow. 01/12/2020 12:24 PM CDT [facility] Fluid (Ascities) Collection / Unknown 01/12/2020 11:24 AM CDT 01/12/2020 12:12 PM CDT Narrative [facility] - 01/12/2020 12:24 PM CDT No reference ranges established for body fluid cell counts. The reference ranges provided are derived from published literature. The test results must be integrated into the clinical context for interpretation. Sharmila Rangel PA-C LAB - BODY FLUI D ORDERABLES Performing Organization Address [facility] Co de Phone Number [address] [phone] [phone] * CARDIAC PROCEDURE ORDER (12/09/2019 9:14 AM CDT) Narrative 12/09/2019 9:14 AM CDT Ordered by an unspecified provider. Scanned Document CARDIAC SERVICES ORD ERABLES * CCL CARDIAC CATH LEFT HEART ONLY (11/28/2019 10:37 AM CDT) Anatomical Region Laterality Modality Chest X-Ray Angiograph y Narrative 12/15/2019 12:40 PM CDT [facility] Cardiac Catheterization Procedure Note Patient: Dominga Cuello Age: [age] year old Date of : 1965 Date of Admission: 11/28/19 Procedure Date: 11/28/19 FELLOW / IMMUNOLOGIST: Abner Frye MD ATTENDING PHYSICIAN: Dr. Valderrama [...] Eleazar Valderrama MD Melecio Graves MD CARDIAC COLON AND RECTAL SURGEON RAD IANT * ECHO STRESS TEST W [...] Not Established mg/dL 10/08/2019 10:01 AM CDT [facility] Urine URINE SPECIMEN OBTAINED BY CLEAN CATCH PROCEDURE / Unknown Collection / Unknown 10/08/2019 8:54 AM CDT 10/08/2019 9:16 AM CDT Melecio Graves MD LAB - URINE CHEMISTR Y ORDERABLES Performing Organization Address City/[facility]/ZIP Co de Phone Number [address] [phone] * CREATININE URINE RANDOM (10/08/2019 8:54 AM CDT) Only the most recent of4 resultswithin the time period is included. Creatinine Urine 97 Not Established mg/dL 10/08/2019 10:00 AM CDT [facility] Comment:Result obtained by chang lamb. Urine URINE SPECIMEN OBTAINED BY CLEAN CATCH PROCEDURE / Unknown Collection / Unknown 10/08/2019 8:54 AM CDT 10/08/2019 9:16 AM CDT Melecio Graves MD LAB - URINE CHEMISTR Y ORDERABLES Performing Organization Address [facility]/ZIP Co de Phone Number [address] [phone] * HLA XM SEROLOGIC AUTO (10/08/2019 8:51 AM CDT) AXM Serum Date 0 10/28/2019 8:12 AM CDT [facility] HLA LABORATORY (BEAKER) AXM T YUMIKO Neg 10/28/2019 8:12 AM CDT [facility] ([facility]) AXM Test Date 0 10/28/2019 8:12 AM CDT [facility] ([facility]) Comment: This test was developed and its performance characteristics determined by the [facility]. It has not been cleared or [...] high complexity clinical laboratory testing. CLIA ID# [id number] Performed at: [facility], [address] [place] [address] Chemical Checker: Kei Chavira MD, AXM B YUMIKO Neg 10/28/2019 8:12 AM CDT [facility] ([facility]) AXM T AHG Neg 10/28/2019 8:12 AM CDT [facility] ([facility]) AXM B AHG Neg 10/28/2019 8:12 AM CDT [facility] ([facility]) Blood BLOOD SPECIMEN / Unknown Lab Venipuncture / Unknown 10/08/2019 8:51 AM CDT 10/08/2019 9:28 AM CDT Melecio Graves MD LAB - BLOOD BANK ORD ERABLES Performing Organization Address City/State/[facility] Co de Phone Number [facility] ([facility]) [address] [phone] * HLA ANTIBODY SCREEN LUM CLASS 2 ID (10/08/2019 8:51 AM CDT) Pathologist [facility] Emergency Department % PRA 0 10/28/2019 8:12 AM CDT [facility] ([facility]) Class 2 LUM Specificity - 10/28/2019 8:12 AM CDT [facility] ([facility]) Class 2 LUM Test Date 0 10/28/2019 8:12 AM CDT [facility] ([facility]) Comment: This test was developed and its performance characteristics determined by the [facility]. It has not been cleared or [...] high complexity clinical laboratory testing. CLIA ID# [id number] Performed at: [facility], [address] [place] [address] Chemical Checker: Kei Chavira MD, Blood BLOOD SPECIMEN / Unknown Lab Venipuncture / Unknown 10/08/2019 8:51 AM CDT 10/08/2019 9:29 AM CDT Melecio Graves MD LAB - BLOOD BANK ORD ERABLES Performing Organization Address City/State/[facility] Co de Phone Number [facility] ([facility]) [address] [address], [place] * HLA ANTIBODY SCREEN LUM CLASS 1 ID (10/08/2019 8:51 AM CDT) Pathologist [facility] Emergency Department % PRA 2 10/28/2019 8:12 AM CDT [facility] ([facility]) Class 1 LUM Specificity - 10/28/2019 8:12 AM CDT [facility] ([facility]) Class 1 LUM Test Date 0 10/28/2019 8:12 AM CDT [facility] ([facility]) Comment: This test was developed and its performance characteristics determined by the [facility]. It has not been cleared or [...] high complexity clinical laboratory testing. CLIA ID# [id number] Performed at: [facility], [address] [place] [address] Chemical Checker: Kei Chavira MD, Blood BLOOD SPECIMEN / Unknown Lab Venipuncture / Unknown 10/08/2019 8:51 AM CDT 10/08/2019 9:28 AM CDT Melecio Graves MD LAB - BLOOD BANK ORD ERABLES [facility] ([facility]) [address] [id number] * RUBELLA ANTIBODY IGG (10/08/2019 8:51 AM CDT) Rubella Antibody 7.74 Immune >0.99 index 10/09/2019 7:07 AM CDT [facility] ([facility]) Comment: Non-immune <0.90 Equivocal 0.90 - 0.99 Immune >0.99 Blood BLOOD SPECIMEN / Unknown Lab Venipuncture / Unknown 10/08/2019 8:51 AM CDT 10/08/2019 9:31 AM CDT Narrative [facility] ([facility]) - 10/09/2019 7:07 AM CDT Performed at: - [id number] [place], [place] [id number] Chemical Checker: Gilberto Coburn PhD, Phone: [phone] Melecio Graves MD LAB - SEROLOGY ORDER MALI[facility] ([facility]) [address] [place] [address] * SMOOTH MUSCLE ANTIBODY (10/08/2019 8:51 AM CDT) F-Actin Antibody IgG 13.5 0.0 - 19.9 Units 10/10/2019 10:42 AM CDT [facility] Comment: F-Actin Antibody Numeric Result Interpretation: <20.0 Units: Negative 20.0 - 30.0 Units: Weak Positive >30.0 Units: Moderate to Strong Positive Blood BLOOD SPECIMEN / Unknown Lab Venipuncture / Unknown 10/08/2019 8:51 AM CDT 10/08/2019 9:29 AM CDT Melecio Graves MD LAB - SEROLOGY ORDER MALIHA [address] [phone] * US RETROPERITONEAL COMPLETE (10/08/2019 8:38 AM [...] nephrolithiasis. Dictated by Norman Saul MD (physician vice president). I, Dr. DEAN LARES M.D. have [...] nephrolithiasis. Dictated by Norman Saul MD (physician vice president). I, Dr. DEAN LARES M.D. have [...] the procedure. Procedure Code(s): --- Professional --- 65934, Abdominal paracentesis (diagnostic or therapeutic); with imaging guidance Diagnosis Code(s): --- Professional --- K70.31, Alcoholic cirrhosis of liver with ascites R18.8, Other ascites K74.60, Unspecified cirrhosis of liver K76.6, Portal hypertension N18.6, End stage renal disease CPT copyright 2016 [employer]. All rights reserved. The codes documented in this report are preliminary and upon resident associate review may be revised to meet current compliance requirements. Sharmila Rangel PA-C 09/29/2019 3:00:50 PM This report has been signed electronically. __ Timi Hanna MD Note Initiated On: 09/29/2019 2:54 PM Number of Addenda: [address] 09/29/2019 2:54 PM CDT Sharmila Rangel PA-C GI PROCEDURE OR DERABLES Performing Organization Address City/[facility] Co de Phone Number [facility] EM[facility] * TSH (09/10/2019 3:49 AM CDT) Pathologist [facility] Emergency Department TSH 1.338 0.350 - 4.940 uIU/mL 09/10/2019 7:52 AM CDT [facility] Blood BLOOD SPECIMEN / Unknown Lab Venipuncture / Unknown 09/10/2019 3:49 AM CDT 09/10/2019 4:03 AM CDT Hitesh Middleton MD LAB - CHEMISTRY FREDO CHAVES Performing Organization Address [facility] Co de Phone Number [address] [phone] * (ABNORMAL) BLOOD GASES ARTERIAL (09/09/2019 10:28 PM CDT) pH Arterial 7.21(L) 7.35 - 7.45 09/09/2019 10:33 PM [facility] pCO2 Arterial 21(L) 35 - 45 mmHg 09/09/2019 10:33 PM [facility] pO2 Arterial 123(H) 77 - 101 mmHg 09/09/2019 10: PM [facility] HCO3 Arterial 8.0(L) 22.0 - 26.0 mmol/L 09/09/2019 10: PM [facility] TCO2 Arterial 8.6(L) 25.0 - 29.0 mmol/L 09/09/2019 10: PM [facility] Base Excess Arterial -18.2(L) -2.0 - 2.0 mmol/L 09/09/2019 10: PM [facility] Hemoglobin Arterial 8.8(L) 13.5 - 17.5 g/dL 09/09/2019 10: PM [facility] Oxyhemoglobin Arterial 96.4 95.0 - 100.0 % 09/09/2019 10: PM [facility] Carboxyhemoglobin 0.2 0.0 - 3.0 % 09/09/2019 10:33 PM [facility] Methemoglobin 0.3 0.0 - 2.0 % 09/09/2019 10:33 PM [facility] FI O2 Arterial 21.0 % 09/09/2019 10:33 PM [facility] Blood, arterial ARTERIAL BLOOD SPECIMEN / Unknown Arterial Puncture / Unknown 09/09/2019 10:28 PM CDT 09/09/2019 10:31 PM CDT Kaleb Rodriguez MD LAB - BLOOD GASES ORDERABLES [address] [phone] * (ABNORMAL) URINALYSIS REFLEX TO MICROSCOPIC NO CULTURE (09/09/2019 5:02 PM CDT) Only the most recent of3 resultswithin the time period is included. Color UA Yellow Straw, Yellow, Colorless 09/09/2019 5:25 PM T [facility] Clarity UA Slt Cloudy Clear, Slt Cloudy 09/09/2019 5:25 PM CDT [facility] Specific [place] UA 1.014 1.005 - 1.030 09/09/2019 5:25 PM [facility] pH UA 5.0 5.0 - 8.0 pH 09/09/2019 5:25 PM [facility] Protein UA 2+(A) Negative mg/dL 09/09/2019 5:25 PM [facility] Glucose UA Negative Negative mg/dL 09/09/2019 5:25 PM [facility] Ketone UA Negative Negative mg/dL 09/09/2019 5:25 PM [facility] Bilirubin UA Negative Negative mg/dL 09/09/2019 5:25 PM [facility] Blood UA 3+(A) Negative 09/09/2019 5:25 PM [facility] Nitrite UA Negative Negative 09/09/2019 5:25 PM [facility] Leukocyte Esterase Negative Negative 09/09/2019 5:25 PM [facility] Urobilinogen UA Negative Negative mg/dL 09/09/2019 5:25 PM [facility] RBC UA >100(A) None Seen, 0-2, 3-5 /HPF 09/09/2019 5:25 PM [facility] WBC UA 6-10(A) None Seen, 0-5 /HPF 09/09/2019 5:25 PM [facility] Bacteria UA 1+(A) None, Trace /HPF 09/09/2019 5:25 PM [facility] Squamous Epithelial Cells UA 0-2 None Seen, 0-2 /HPF 09/09/2019 5:25 PM [facility] Mucus UA 1+ None, 1+ /LPF 09/09/2019 5:25 PM [facility] Urine URINE SPECIMEN OBTAINED BY CLEAN CATCH PROCEDURE / Unknown Collection / Unknown 09/09/2019 5:02 PM CDT 09/09/2019 5:10 PM T [facility] - 09/09/2019 5:25 PM CDT Paris Flynn MD LAB - URINALYSIS ORD ERABLES [place] [id number] [phone] * IMAGING RADIOLOGY XRAY RESULTS ORDER (09/05/2019 1:39 PM CLUTCH INSPECTOR) Anatomical Region Laterality Modality Other Narrative 09/05/2019 1:39 PM CLUTCH INSPECTOR Ordered by an unspecified provider. Scanned Document IMAGING * LARGE VOLUME PARACENTESIS (09/04/2019 3:10 PM CLUTCH INSPECTOR) Report Endoscopy POC Endoscopy Department Report _ [...] the procedure. Procedure Code(s): --- Professional --- 76524, Abdominal paracentesis (diagnostic or therapeutic); with imaging guidance Diagnosis Code(s): --- Professional --- K70.31, Alcoholic cirrhosis of liver with ascites R18.8, Other ascites K74.60, Unspecified cirrhosis of liver K76.6, Portal hypertension N18.6, End stage renal disease CPT copyright 2016 [employer]. All rights reserved. The codes documented in this report are preliminary and upon resident associate review may be revised to meet current compliance requirements. Sharmila Rangel PA-C 09/04/2019 3:16:49 PM This report has been signed electronically. __ Timi Hanna MD Note Initiated On: 09/04/2019 3:10 PM Number of Addenda: 0 [facility] [address] [place] [address] [facility] [employer] 09/04/2019 3:10 PM CLUTCH INSPECTOR Sharmila Ragnel PA-C GI PROCEDURE OR DERABLES [facility] * LARGE VOLUME PARACENTESIS (08/13/2019 1:49 PM CLUTCH INSPECTOR) Report Endoscopy POC Endoscopy Department Report __ [...] the procedure. Procedure Code(s): --- Professional --- 09985, Abdominal paracentesis (diagnostic or therapeutic); with imaging guidance Diagnosis Code(s): --- Professional --- R18.8, Other ascites K74.60, Unspecified cirrhosis of liver K76.6, Portal hypertension CPT copyright 2016 [employer]. All rights reserved. The codes documented in this report are preliminary and upon resident associate review may be revised to meet current compliance requirements. Jaqueline Park APN ____ Jaqueline Park NP 08/13/2019 1:59:41 PM This report has been signed electronically. ___ Radha Vines MD Note Initiated On: 08/13/2019 1:49 PM Number of Addenda: 0 [facility] [address] [place] [address] [facility] [employer] 08/13/2019 1:49 PM CLUTCH INSPECTOR Jaqueline Park AIRPORT REPRESENTATIVE-ERRAND RUNNER GI PROCEDURE ORDERABLES [facility] * LARGE VOLUME PARACENTESIS (06/30/2019 1:00 PM CLUTCH INSPECTOR) Report Endoscopy POC Endoscopy Department Report _ [...] the procedure. Procedure Code(s): --- Professional --- 22825, Abdominal paracentesis (diagnostic or therapeutic); with imaging guidance Diagnosis Code(s): --- Professional --- R18.8, Other ascites K74.60, Unspecified cirrhosis of liver K76.6, Portal hypertension CPT copyright 2016 [employer]. All rights reserved. The codes documented in this report are preliminary and upon resident associate review may be revised to meet current compliance requirements. __ Ranjit Garcia MD 07/03/2019 9:46:39 AM Note Initiated On: 06/30/2019 1:00 PM Number of Addenda: 0 [facility] [address] [place] [address] [facility] [employer] 06/30/2019 1:00 PM CLUTCH INSPECTOR Shelly Marti MD GI PROCEDUR E ORDERABLES [facility] [employer] * LARGE VOLUME PARACENTESIS (06/05/2019 2:59 PM CLUTCH INSPECTOR) Report Endoscopy POC Endoscopy Department Report _ [...] the procedure. Procedure Code(s): --- Professional --- 34371, Abdominal paracentesis (diagnostic or therapeutic); with imaging guidance Diagnosis Code(s): --- Professional --- K70.31, Alcoholic cirrhosis of liver with ascites R18.8, Other ascites K74.60, Unspecified cirrhosis of liver K76.6, Portal hypertension N18.6, End stage renal disease CPT copyright 2016 [employer]. All rights reserved. The codes documented in this report are preliminary and upon resident associate review may be revised to meet current compliance requirements. Sharmila Rangel PA-C 06/05/2019 3:04:10 PM This report has been signed electronically. __ Timi Hanna MD Note Initiated On: 06/05/2019 2:59 PM Number of Addenda: 0 [facility] [address] [place] [address] [facility] 06/05/2019 2:59 PM CLUTCH INSPECTOR Sharmila Rangel PA-C GI PROCEDURE OR DERABLES [facility] [employer] * LARGE VOLUME PARACENTESIS (05/23/2019 1:27 PM CLUTCH INSPECTOR) Report Endoscopy POC Endoscopy Department Report __ [...] the procedure. Procedure Code(s): --- Professional --- 93541, Abdominal paracentesis (diagnostic or therapeutic); with imaging guidance Diagnosis Code(s): --- Professional --- K70.31, Alcoholic cirrhosis of liver with ascites R18.8, Other ascites K74.60, Unspecified cirrhosis of liver K76.6, Portal hypertension N18.6, End stage renal disease CPT copyright 2016 [employer]. All rights reserved. The codes documented in this report are preliminary and upon resident associate review may be revised to meet current compliance requirements. Sharmila Rangel PA-C 05/23/2019 1:32:29 PM This report has been signed electronically. ___ Radha Vines MD Note Initiated On: 05/23/2019 1:27 PM Number of Addenda: 0 [facility] [address] [facility] [place] [address] [facility] [employer] 05/23/2019 1:27 PM CLUTCH INSPECTOR Sharmila Rangel PA-C GI PROCEDURE OR DERABLES [facility] [employer] * LARGE VOLUME PARACENTESIS (05/12/2019 10:39 AM CLUTCH INSPECTOR) Report Endoscopy POC Endoscopy Department Report _ [...] assistance of a fellow, resident or surgical supplies sterilizer. Procedure Code(s): --- Professional --- 94965, Abdominal paracentesis (diagnostic or therapeutic); with imaging guidance Diagnosis Code(s): --- Professional --- R18.8, Other ascites K74.60, Unspecified cirrhosis of liver CPT copyright 2016 [employer]. All rights reserved. The codes documented in this report are preliminary and upon resident associate review may be revised to meet current compliance requirements. _ Ranjit Garcia MD 05/15/2019 9:01:39 AM Note Initiated On: 05/12/2019 10:39 AM Number of Addenda: 0 [facility] [address] [facility] [place] [address] [facility] [employer] 05/12/2019 10:3 9 AM CLUTCH INSPECTOR Nicole Cronin MD GI PROCEDUR E ORDERABLES [facility] [employer] * VAS MAPPING FOR HEMODIALYSIS (05/09/2019 1:47 PM CLUTCH INSPECTOR) Anatomical Region Laterality Modality Intravascular Ul trasound 05/09/2019 12:5 3 PM CLUTCH INSPECTOR Narrative Procedure Note Mirza Hadley MD - [...] the procedure. Procedure Code(s): --- Professional --- 56735, Abdominal paracentesis (diagnostic or therapeutic); with imaging guidance Diagnosis Code(s): --- Professional --- R18.8, Other ascites K74.60, Unspecified cirrhosis of liver K76.6, Portal hypertension CPT copyright 2016 [employer]. All rights reserved. The codes documented in this report are preliminary and upon resident associate review may be revised to meet current compliance requirements. Jaqueline Park APN ____ Jaqueline Park NP 04/30/2019 11:46:36 AM This report has been signed electronically. ___ Radha Vines MD Note Initiated On: 04/30/2019 11:29 AM Number of Addenda: 1 [facility] [address] [facility] [place] [address] __ _ Addendum Number: 1 Addendum Date: 04/30/2019 12:22:16 PM patient has 8.0 liters of clear yellow peritneal fluid removed Jaqueline Park APN ____ Jaqueline Park NP 04/30/2019 12:36:13 PM This report has been signed electronically. [facility] 04/30/2019 11:2 9 AM CDT Jaqueline Park AIRPORT REPRESENTATIVE-ERRAND RUNNER GI PROCEDURE ORDERABLES [facility] * LARGE VOLUME PARACENTESIS (04/14/2019 12:03 [...] the procedure. Procedure Code(s): --- Professional --- 97551, Abdominal paracentesis (diagnostic or therapeutic); with imaging guidance Diagnosis Code(s): --- Professional --- K70.30, Alcoholic cirrhosis of liver without ascites R18.8, Other ascites K70.31, Alcoholic cirrhosis of liver with ascites K76.6, Portal hypertension N18.6, End stage renal disease CPT copyright 2016 [employer]. All rights reserved. The codes documented in this report are preliminary and upon resident associate review may be revised to meet current compliance requirements. Sharmila Rangel PA-C 04/14/2019 3:35:52 PM This report has been signed electronically. Jovana Lee MD Note Initiated On: 04/14/2019 3:29 PM Number of Addenda: 0 [facility] [address] [place] [address] [facility] 04/14/2019 12:0 3 PM CDT Sharmila Rangel PA-C GI PROCEDURE OR DERABLES [facility] * TRANSFUSE RED BLOOD CELL LEUKOREDUCED [...] the procedure. Procedure Code(s): --- Professional --- 47923, Abdominal paracentesis (diagnostic or therapeutic); with imaging guidance Diagnosis Code(s): --- Professional --- K70.31, Alcoholic cirrhosis of liver with ascites R18.8, Other ascites K74.60, Unspecified cirrhosis of liver K76.6, Portal hypertension N18.6, End stage renal disease CPT copyright 2016 [employer]. All rights reserved. The codes documented in this report are preliminary and upon resident associate review may be revised to meet current compliance requirements. Sharmila Rangel PA-C 04/03/2019 3:02:42 PM This report has been signed electronically. __ Timi Hanna MD Note Initiated On: 04/03/2019 2:42 PM Number of Addenda: 0 [facility] [address] [facility] [place] [address] [facility] 04/03/2019 2:42 PM CDT Sharmila Rangel PA-C GI PROCEDURE OR DERABLES [facility] * TRANSFUSE RED BLOOD CELL LEUKOREDUCED UNIT(S) (04/03/2019 2:26 PM CDT) Sharmila Rangel PA-C NURSING - BLOOD PROD TRANSFUSION * LARGE VOLUME PARACENTESIS (03/27/2019 3:55 PM CDT) Report Endoscopy POC Endoscopy Department Report __ _ Patient Name: Domniga Cuello Procedure Date: 03/27/2019 3:55 PM Date [...] the procedure. Procedure Code(s): --- Professional --- 60623, Abdominal paracentesis (diagnostic or therapeutic); with imaging guidance Diagnosis Code(s): --- Professional --- K70.31, Alcoholic cirrhosis of liver with ascites R18.8, Other ascites K74.60, Unspecified cirrhosis of liver K76.6, Portal hypertension N18.6, End stage renal disease CPT copyright 2016 [employer]. All rights reserved. The codes documented in this report are preliminary and upon resident associate review may be revised to meet current compliance requirements. Sharmila Rangel PA-C 03/27/2019 4:00:36 PM This report has been signed electronically. Timi Hanna MD Note Initiated On: 03/27/2019 3:55 PM Number of Addenda: 0 [facility] [address] [place] [address] [facility] 03/27/2019 3:55 PM CDT Sharmila Rangel PA-C GI PROCEDURE OR DERABLES [facility] * HEPATITIS SCREEN ACUTE (03/10/2019 10:09 AM CDT) Hepatitis A Virus Antibody IgM Non-react jaden Non-reac tive 03/10/2019 11:15 AM CDT [facility] Hepatitis B Virus Surface Antigen Non-react jaden Non-reac tive 03/10/2019 11:15 AM CDT [facility] Hepatitis B Core Virus Antibody IgM Non-react jaden Non-reac tive 03/10/2019 11:15 AM CDT [facility] Hepatitis C Antibody Non-react jaden Non-reac tive 03/10/2019 11:15 AM CDT [facility] Comment: Hepatitis C Antibody screen indicates no [...] LAB - CHEMISTRY ORDERABLES Performing Organization Address City/[facility]/ZIP Co de Phone Number [address] [phone] * (ABNORMAL) CYTOMEGALOVIRUS AB IGG (03/10/2019 8:18 AM CDT) [facility] Cytomegalovirus Antibody IgG >10.00(H) 0.00 - 0.59 U/mL 03/11/2019 8:07 PM CDT [facility] ([facility]) Comment: Negative <0.60 Equivocal 0.60 - 0.69 Positive >0.69 Blood BLOOD SPECIMEN / Unknown Lab Venipuncture / Unknown 03/10/2019 8:18 AM CDT 03/10/2019 8:27 AM CDT Narrative [facility] ([facility]) - 03/11/2019 8:07 PM CDT Performed at: [address] [place] [id number] Chemical Checker: Floyd Lipscomb MD, Phone: [phone] Julianna Maurer MD LAB - CHEMISTRY OR DERABLES [facility] ([facility]) [address] [place] [address] * KATIE-TRINIDAD VIRUS AB TO EARLY AG IGG (03/10/2019 8:18 AM CDT) Katie-Trin[place] Virus Early Antigen Antibody IgG <9.0 0.0 - 8.9 U/mL 03/11/2019 3:08 PM CDT [facility] ([facility]) Comment: Negative < 9.0 Equivocal 9.0 - 10.9 Positive >10.9 Blood BLOOD SPECIMEN / Unknown Lab Venipuncture / Unknown 03/10/2019 8:18 AM CDT 03/10/2019 8:27 AM CDT Narrative [facility] ([facility]) - 03/11/2019 3:08 PM CDT Performed at: [facility] [address] [place] [id number] Chemical Checker: Gilberto Coburn PhD, Phone: [phone] Julianna Maurer MD LAB - CHEMISTRY OR DERABLES [facility]) [address] [place] [address] * LAB MISC TEST (03/09/2019 7:00 PM CDT) Pathologist [facility] Test Name PETH (Phosphatid ylethanol) 03/21/2019 1:48 PM CDT [employer] Test Result See Scanned Report 03/21/2019 1:48 PM CDT [employer] Blood BLOOD SPECIMEN / Unknown Lab Venipuncture / Unknown 03/09/2019 7:00 PM CDT 03/09/2019 7:00 PM CDT Julianna Maurer MD LAB SEND OUT [employer] [address] [place] [address] * CULTURE URINE (03/08/2019 5:30 PM CDT) Only the most recent of2 resultswithin the time period is included. Pathologist [facility] Culture Urine No growth (<100 CFU/mL) LEANNE 03/10/2019 5:08 AM CDT [facility] Urine URINE SPECIMEN OBTAINED BY SINGLE CATHETERIZATION OF URINARY BLADDER / Unknown Collection / Unknown 03/08/2019 5:30 PM CDT 03/08/2019 5:39 PM CDT Julianna Maurer MD LAB - MICROBIOLOGY ORDERABLES [facility] [address] [place], [place] [address], [facility] [phone] * EGD (03/07/2019 3:14 PM CDT) Report [...] non-hooper portions. 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 All rights reserved. The codes documented in this report are preliminary and upon resident associate review may be revised to meet current compliance requirements. Arpan Weber, 03/07/2019 3:58:51 PM Note Initiated On: 03/07/2019 3:14 PM Number of Addenda: 0 [facility] [address] [place] [address] [facility] [employer] 03/07/2019 3:14 PM CDT Livia Alejandre MD GI PRO CEDURE ORDERABLES [facility] [employer] * TRANSFUSE PLATELET PHERESIS UNIT(S) (03/07/2019 [...] an interventional nephrology procedure performed on 03/07/19 Attending/Respiratory Technician: Christie Pandey M.D. Frit Coater: Tamar Albright M.D. Procedures performed: 1. Insertion [...] central veins under fluoroscopic guidance. A 5 Welsh trocar was placed and a 0.035 guidewire [...] evaluation, please review the evaluation forms in [facility]. For details on monitored clinical parameters during the intra-service sedation time, please review the procedure nurse documentation in [facility]. Procedure Note Trav Pandey MD - 03/07/2019 This is an interventional nephrology procedure performed on 03/07/19 Attending/Respiratory Technician: Christie Pandey M.D. Frit Coater: Tamar Albright M.D. Procedures performed: 1. Insertion [...] central veins under fluoroscopic guidance. A 5 Welsh trocar was placed and a 0.035 guidewire [...] response to care. Intra-service sedation start time [id number] and end time was 945 during which I was present. Total physician intra-service sedation time was 19 minutes. For details on pre-moderate sedation and post-moderate sedation patient evaluation, please reviewthe evaluation forms in [facility]. For details on monitored clinical parameters during the intra-service sedation time, please review the procedurenurse documentation in [facility]. Impression: Successful placement of right internal [...] - 2.5 % 03/07/2019 6:45 AM CDT [facility] Reticulocyte Absolute 0.05 0.02 - 0.13 10 6/uL 03/07/2019 6:45 AM CDT [facility] Blood BLOOD SPECIMEN / Unknown Venipuncture / Unknown 03/07/2019 6:00 AM CDT 03/07/2019 6:24 AM CDT [facility] LAB - HEMATOLOGY ORD ERABLES [address] [phone] * LDH BLOOD (03/07/2019 6:00 AM CDT) Only the most recent of2 resultswithin the time period is included. LDH Total 171 125 - 243 Units/L 03/07/2019 7:00 AM CDT [facility] Blood BLOOD SPECIMEN / Unknown Venipuncture / Unknown 03/07/2019 6:00 AM CDT 03/07/2019 6:24 AM CDT [facility] LAB - CHEMISTRY ORDE RABRADHA Performing Organization Address [facility]/ZIP Co de Phone Number [address] [phone] * HAPTOGLOBIN (03/07/2019 6:00 AM CDT) Only the most recent of2 resultswithin the time period is included. Haptoglobin 63 14 - 258 mg/dL 03/07/2019 6:56 AM CDT [facility] Blood BLOOD SPECIMEN / Unknown Venipuncture / Unknown 03/07/2019 6:00 AM CDT 03/07/2019 6:24 AM CDT [facility] LAB - CHEMISTRY ORDE RABLES Performing Organization Address City/[facility]/ZIP Co de Phone Number [address] [phone] * TRANSFUSE RED BLOOD CELL LEUKOREDUCED UNIT(S) [...] Yellow Straw, Yellow, Colorless 03/06/2019 6:57 AM [facility] Clarity UA Cloudy(A) Clear, t Cloudy 03/06/2019 6:57 AM [facility] Specific [place] UA 1.013 1.005 - 1.030 03/06/2019 6:57 AM [facility] pH UA 5.0 5.0 - 8.0 pH 03/06/2019 6:57 AM [facility] Protein UA 2+(A) Negative mg/dL 03/06/2019 6:57 AM [facility] Glucose UA Negative Negative mg/dL 03/06/2019 6:57 AM [facility] Ketone UA Negative Negative mg/dL 03/06/2019 6:57 AM [facility] Bilirubin UA Negative Negative mg/dL 03/06/2019 6:57 AM [facility] Blood UA 3+(A) Negative 03/06/2019 6:57 AM [facility] Nitrite UA Negative Negative 03/06/2019 6:57 AM [facility] Leukocyte Esterase Negative Negative 03/06/2019 6:57 AM CDT [facility] Urobilinogen UA Negative Negative mg/dL 03/06/2019 6:57 AM CDT [facility] Urine URINE SPECIMEN OBTAINED BY SINGLE CATHETERIZATION OF URINARY BLADDER / Unknown Collection / Unknown 03/06/2019 6:38 AM CDT 03/06/2019 6:41 AM CDT Narrative [facility] - 03/06/2019 6:57 AM CDT Noé Martino MD LAB - URINALYSIS O RDERABLES [address] [phone] * SODIUM URINE RANDOM (03/06/2019 6:38 AM CDT) Only the most recent of3 resultswithin the time period is included. Sodium Urine 23 Not Established mmol/L 03/06/2019 7:00 AM CDT [facility] Urine URINE SPECIMEN OBTAINED BY CLEAN CATCH PROCEDURE / Unknown Collection / Unknown 03/06/2019 6:38 AM CDT 03/06/2019 6:41 AM CDT Noé Martino MD LAB - URINE CHEMIS TRY ORDERABLES Performing Organization Address [facility] Co de Phone Number [address] [phone] * UREA NITROGEN URINE RANDOM (03/06/2019 6:38 AM CDT) Only the most recent of3 resultswithin the time period is included. Urea Nitrogen Random Urine 616 Not Established mg/dL 03/06/2019 7:00 AM CDT [facility] Urine URINE SPECIMEN OBTAINED BY CLEAN CATCH PROCEDURE / Unknown Collection / Unknown 03/06/2019 6:38 AM CDT 03/06/2019 6:41 AM CDT Noé Martino MD LAB - URINE CHEMIS TRY ORDERABLES Performing Organization Address [facility] Co de Phone Number [address] [phone] * POTASSIUM URINE RANDOM (03/06/2019 6:38 AM CDT) Potassium Urine 30 Not Established mmol/L 03/06/2019 7:00 AM CDT [facility] Urine URINE SPECIMEN OBTAINED BY CLEAN CATCH PROCEDURE / Unknown Collection / Unknown 03/06/2019 6:38 AM CDT 03/06/2019 6:41 AM CDT Noé Martino MD LAB - URINE CHEMIS TRY ORDERABLES [facility] [address] [phone] * LARGE VOLUME PARACENTESIS (02/20/2019 2:24 PM [...] the procedure. Procedure Code(s): --- Professional --- 06741, Abdominal paracentesis (diagnostic or therapeutic); with imaging guidance Diagnosis Code(s): --- Professional --- K70.31, Alcoholic cirrhosis of liver with ascites R18.8, Other ascites K74.60, Unspecified cirrhosis of liver K76.6, Portal hypertension N18.6, End stage renal disease CPT copyright 2016 [employer]. All rights reserved. The codes documented in this report are preliminary and upon resident associate review may be revised to meet current compliance requirements. Sharmila Rangel PA-C 02/20/2019 2:30:44 PM This report has been signed electronically. ___ Ranjit Garcia MD Note Initiated On: 02/20/2019 2:24 PM Number of Addenda: [address] [employer]ATION 02/20/2019 2:24 PM CDT Sharmila Rangel PA-C GI PROCEDURE OR DERABLES Performing Organization Address [facility] Co de Phone Number [facility] [employer] * TRANSFUSE RED BLOOD CELL LEUKOREDUCED UNIT(S) (02/08/2019 7:59 PM CDT) Janice Mcpherson DO NURSING - BLOOD PROD TRANSFUSION * TRANSFUSE RED BLOOD CELL LEUKOREDUCED UNIT(S) (02/08/2019 12:58 AM CDT) Janice Mcpherson DO NURSING - BLOOD PROD TRANSFUSION * OSMOLALITY URINE (02/07/2019 1:02 PM CDT) Osmolality Urine 235 50 - 1,200 mOsm/kg 02/07/2019 3:11 PM CDT [facility] Urine URINE SPECIMEN OBTAINED BY CLEAN CATCH PROCEDURE / Unknown Collection / Unknown 02/07/2019 1:02 PM CDT 02/07/2019 1:02 PM CDT Janice Mcpherson DO LAB - URINE CHEMISTR Y ORDERABLES Performing Organization Address [facility] Co de Phone Number [address] [phone] * (ABNORMAL) OSMOLALITY BLOOD (02/07/2019 6:55 AM CDT) Osmolality 305(H) 270 - 300 mOsm/kg 02/07/2019 8:16 AM CDT [facility] Blood BLOOD SPECIMEN / Unknown Lab Venipuncture / Unknown 02/07/2019 6:55 AM CDT 02/07/2019 7:15 AM CDT Janice Mcpherson DO LAB - CHEMISTRY ORDE RABLES Performing Organization Address City/[facility]/ZIP Co de Phone Number [address] [place] [address], [facility] [phone] * LARGE VOLUME PARACENTESIS (02/06/2019 2:56 PM [...] the procedure. Procedure Code(s): --- Professional --- 05633, Abdominal paracentesis (diagnostic or therapeutic); with imaging guidance Diagnosis Code(s): --- Professional --- K70.31, Alcoholic cirrhosis of liver with ascites R18.8, Other ascites K74.60, Unspecified cirrhosis of liver K76.6, Portal hypertension N28.9, Disorder of kidney and ureter, unspecified CPT copyright 2016 [employer]. All rights reserved. The codes documented in this report are preliminary and upon resident associate review may be revised to meet current compliance requirements. Sharmila Rangel PA-C 02/06/2019 3:02:55 PM This report has been signed electronically. Leroy Quinn MD Note Initiated On: 02/06/2019 2:56 PM Number of Addenda: 0 [facility] [address] [place] [address] [facility] [employer] 02/06/2019 2:56 PM CDT Sharmila Rangel [...] non-hooper portions. Procedure Code(s): --- Professional --- 51316, Esophagogastroduode noscopy, flexible, transoral; with band ligation of esophageal/gastric varices Diagnosis Code(s): --- Professional --- I85.01, Esophageal varices with bleeding K76.6, Portal hypertension K31.89, Other diseases of stomach and duodenum K92.1, Melena (includes Hematochezia) K70.30, Alcoholic cirrhosis of liver without ascites CPT copyright 2016 [employer]. All rights reserved. The codes documented in this report are preliminary and upon resident associate review may be revised to meet current compliance requirements. Kaleb Hernandez MD 01/27/2019 5:57:59 PM This report has been signed electronically. Note Initiated On: 01/27/2019 3:30 PM Number of Addenda: 0 [facility] [address] [place] [address] [facility] [employer] 01/27/2019 3:30 PM CDT Nicole Cronin MD GI PROCEDUR E ORDERABLES [facility] [employer] * ENDOSCOPY, PROCTOSIGMOID (01/27/2019 3:27 PM [...] non-hooper portions. Procedure Code(s): --- Professional --- 60528, Sigmoidoscopy, flexible; diagnostic, including collection of specimen(s) by brushing or washing, when performed (separate procedure) Diagnosis Code(s): --- Professional --- K64.4, Residual hemorrhoidal skin tags K62.89, Other specified diseases of anus and rectum K63.89, Other specified diseases of intestine K92.1, Melena (includes Hematochezia) K70.30, Alcoholic cirrhosis of liver without ascites CPT copyright 2016 [employer]. All rights reserved. The codes documented in this report are preliminary and upon resident associate review may be revised to meet current compliance requirements. _ Kaleb Hernandez MD 01/27/2019 5:56:44 PM This report has been signed electronically. Note Initiated On: 01/27/2019 3:27 PM Number of Addenda: 0 [facility] [address] [place] [address] [facility] [employer] 01/27/2019 3:27 PM CDT Nicole Cronin MD GI PROCEDUR E ORDERABLES [facility] [employer] * TRANSFUSE PLATELET PHERESIS UNIT(S) (01/26/2019 4:58 AM CDT) Kain Evans MD NURSING - BLOOD PROD TRANSFUSION * TRANSFUSE PLATELET PHERESIS UNIT(S) (01/25/2019 11:10 PM CDT) Kain Evans MD NURSING - BLOOD PROD TRANSFUSION * (ABNORMAL) KAPPA/LAMBDA LITE CHAIN FREE URINE W RATIO (01/25/2019 6:04 AM CDT) Free [place] Light Chains Urine 294.00(H) 1.35 - 24.19 mg/L 01/28/2019 5:06 AM CDT [facility] ([facility]) Comment:Results verified b y repeat testing Free Lambda Light Chains Urine 98.50(H) 0.24 - 6.66 mg/L 01/28/2019 5:06 AM CDT [facility] ([facility]) [place]/Lambda Ratio Urine 2.98 2.04 - 10.37 01/28/2019 5:06 AM CDT [facility] ([facility]) Urine URINE SPECIMEN OBTAINED BY CLEAN CATCH PROCEDURE / Unknown Collection / Unknown 01/25/2019 6:04 AM CDT 01/25/2019 6:15 AM CDT Narrative [facility] ([facility]) - 01/28/2019 5:06 AM CDT Performed at: [address] [place] [address] [id number] Chemical Checker: Floyd Lipscomb MD, Phone: [phone] Rebeca Kan MD LAB - URINE CHEMISTR Y ORDERABLES [facility] ([facility]) [address] [place] [address] * PROTEIN ELECTROPHORESIS URINE RANDOM (01/25/2019 6:04 AM CDT) Interpretation Urine PE See Comment Normal Pattern 01/28/2019 9:05 PM CDT [facility] Comment: Urine protein electrophoresis shows albumin and transferrin bands accompanied by alpha and beta globulins and polyclonal immunoglobulins. No monoclonal immunoglobulins detected by urine protein electrophoresis. Kaleb Brumfield MD, PGY-2 Protein Urine 558 Not Established mg/dL 01/28/2019 9:05 PM CDT [facility] Comment: Result obtained by dilution. Urine URINE SPECIMEN OBTAINED BY CLEAN CATCH PROCEDURE / Unknown Collection / Unknown 01/25/2019 6:04 AM CDT 01/25/2019 6:14 AM CDT Rebeca Kan MD LAB - URINE CHEMISTR Y ORDERABLES Performing Organization Address City/[facility]/ZIP Co de Phone Number [address] [phone] * TRANSFUSE PLATELET PHERESIS UNIT(S) (01/25/2019 5:00 AM CDT) Kain Evans MD NURSING - BLOOD PROD TRANSFUSION * HIV-1 HIV-2 ANTIGEN/ANTIBODY (01/25/2019 3:54 AM CDT) HIV Antigen/Antibod y 1 & 2 Non-reacti ve Non-react jaden 01/25/2019 4:45 AM CDT [facility] Comment: Neither HIV-1 p24 Antigen nor HIV-1/HIV-2 Antibodies are detected. Blood BLOOD SPECIMEN / Unknown Venipuncture / Unknown 01/25/2019 3:54 AM CDT 01/25/2019 3:58 AM CDT Rebeca Kan MD LAB - HEMATOLOGY ORD ERABLES Performing Organization Address [facility]/ZIP Co de Phone Number [address] [phone] * (ABNORMAL) LIAT STAINING PATTERNS REFLEXED (01/25/2019 3:54 AM CDT) Homogeneous Pattern 1:160(H) 01/27/2019 3:08 PM CDT [facility] ([facility]) Note Comment 01/27/2019 3:08 PM CDT [facility] ([facility]) Comment: A positive VELIA result may occur in healthy individuals (low titer) or be associated with a variety of diseases. See interpretation chart which is not all inclusive: Pattern Antigen Detected Suggested Disease Association Homogeneous DNA(ds,ss), SLE - High titers Nucleosomes, Histones Drug-induced SLE Speckled Sm, CLOTHING SUPERVISOR, SCL-70, SLE,MCTD,PSS (diffuse form), SS-A/SS-B Sjogrens Nucleolar SCL-70, PM-1/SCL High titers Scleroderma, PM/DM Centromere Centromere PSS (limited form) w/Crest syndrome variable Nuclear Dot [id number] Primary Biliary Cirrhosis Nuclear GP210, Primary Biliary Cirrhosis Membrane emil A,B,C Blood BLOOD SPECIMEN / Unknown Venipuncture / Unknown 01/25/2019 3:54 AM CDT 01/25/2019 3:58 AM CDT Narrative [facility] ([facility]) - 01/27/2019 3:08 PM CDT Performed at: [address] [place], [place] [id number] Chemical Checker: Gilberto Coburn PhD, Phone: [phone] Rebeca Kan MD LAB - PATHOLOGY/CYTO LOGY ORDERABLES [facility] ([facility]) [address] [place] [address], [facility] * (ABNORMAL) KAPPA/LAMBDA LITE CHAIN FREE PANEL (01/25/2019 3:54 AM CDT) Free [place] Light Chains 164.1(H) 3.3 - 19.4 mg/L 01/27/2019 2:08 PM CDT [facility] ([facility]) Free Lambda Light Chains 130.4(H) 5.7 - 26.3 mg/L 01/27/2019 2:08 PM CDT [facility] ([facility]) [place]/Lambda Ratio 1.26 0.26 - 1.65 01/27/2019 2:08 PM CDT [facility] ([facility]) Blood BLOOD SPECIMEN / Unknown Venipuncture / Unknown 01/25/2019 3:54 AM CDT 01/25/2019 3:58 AM CDT Narrative [facility] ([facility]) - 01/27/2019 2:08 PM CDT Performed at: [address] [place] [id number] Chemical Checker: Gilberto Coburn PhD, Phone: [phone] Rebeca Kan MD LAB - CHEMISTRY FREDO CHAVES [facility] ([facility]) [address] [place] [address] * (ABNORMAL) PROTEIN ELECTROPHORESIS BLOOD (01/25/2019 3:54 AM CDT) Interpretation Serum PE Normal Pattern Normal Pattern 01/30/2019 8:42 PM CDT [facility] Comment: Serum capillary electrophoresis shows [...] - 8.3 g/dL 01/30/2019 8:42 PM CDT [facility] Albumin 2.8(L) 3.3 - 5.6 g/dL 01/30/2019 8:42 PM CDT [facility] Alpha-1 Globulins 0.3 0.2 - 0.4 g/dL 01/30/2019 8:42 PM T [facility] Alpha-2 Globulins 0.4(L) 0.5 - 1.0 g/dL 01/30/2019 8:42 PM T [facility] Beta Globulins 0.6 0.6 - 1.1 g/dL 01/30/2019 8:42 PM T [facility] Gamma Globulins 0.8 0.6 - 1.6 g/dL 01/30/2019 8:42 PM T [facility] Blood BLOOD SPECIMEN / Unknown Venipuncture / Unknown 01/25/2019 3:54 AM CDT 01/25/2019 3:58 AM CDT Rebeca Kan MD LAB - CHEMISTRY FREDO CHAVES [facility] [address] [place] [address] * TRANSFUSE PLATELET PHERESIS UNIT(S) (01/24/2019 11:21 [...] cholecystitis. Dictated by Norman Saul MD (physician vice president). I, Dr. DEAN LARES M.D. have [...] cholecystitis. Dictated by Norman Saul MD (physician vice president). I, Dr. DEAN LARES M.D. have personally reviewed and interpreted this examination/study. This report was electronically signed by DEAN LARES M.D. on01/24/2019 11:10 AM . Leilani Noriega MD US ORDERABLES * CYTOLOGY NON-PAY STATION DEPARTMENT MANAGER PANEL (STL) (01/24/2019 6:31 AM CDT) Case Report Medical Cytology Report Case: [id number] Authorizing Provider: Leilani Noriega MD Collected: 01/24/2019 06:31 AM Ordering Location: [address] Received: 01/24/2019 06:31 AM Pathologist: Denver Lopez MD Specimen: Ascitic Fluid 01/28/2019 11:39 AM CDT [facility] Specimen Adequacy Adequate cellularity for evaluation. 01/28/2019 11:39 AM CDT [facility] Final Diagnosis Peritoneal fluid, cytology: - Negative for malignancy - Benign, reactive mesothelial cells, lymphocytes, and histiocytes 01/28/2019 11:39 AM CDT [facility] Clinical History Decompensated hepatic cirrhosis. 01/28/2019 11:39 AM CDT [facility] Gross Description 1 pap slide and 1 diff-quik slide from [facility] biloxic clear yellow fluid. 01/28/2019 11:39 AM CDT [facility] Microscopic Description Performed. 01/28/2019 11:39 AM CDT [facility] Disclaimer The performance characteristics of all immunohistochemical and indirect immunofluorescence stains (if any) cited in this report were determined by the Histopathology Laboratory of [facility]. Some of these tests rely on the use of analyte-specific reagents and are subject to specific labeling requirements by the [place] Food and Drug Administration. Such tests were developed by the Histology Laboratory of [facility] and have not been cleared or approved [...] attending (teaching) pathologist. 01/28/2019 11:39 AM CDT [facility] PATHOLOGY LAB Embedded Images 01/28/2019 11:39 AM CDT [facility] PATH[facility]Y LAB Pathology/Cytolo gy ASCITIC FLUID SPECIMEN / Unknown Collection / Unknown 01/24/2019 6:31 AM CDT 01/24/2019 6:31 AM CDT Leilani Noriega MD LAB - PATHOLOGY/CYTO LOGY ORDERABLES Performing Organization Address [facility] Co de Phone Number [facility] PATHOLOGY LAB [address] [phone] * PROTEIN BODY FLUID ([facility]) (01/24/2019 6:30 AM CDT) Protein Fluid 1.0 Not Established For Fluids g/dL 01/24/2019 7:00 AM CDT [facility] Comment: The reference range and other method performance specifications have not been established for this fluid. The test result must be integrated into the clinical context for interpretation. Fluid PERITONEAL FLUID / Unknown Collection / Unknown 01/24/2019 6:30 AM CDT 01/24/2019 6:37 AM CDT Leilani Noriega MD LAB - BODY FLUID ORD ERABLES Performing Organization Address [facility] Co de Phone Number [facility] [address] [place] [address], [facility] [phone] * ALBUMIN BODY FLUID ([facility] ONLY) (01/24/2019 6:30 AM CDT) Albumin Fluid 0.4 Not Established For Fluids g/dL 01/24/2019 7:00 AM CDT [facility] Comment: The reference range and other method performance specifications have not been established for this fluid. The test result must be integrated into the clinical context for interpretation. Fluid PERITONEAL FLUID / Unknown Collection / Unknown 01/24/2019 6:30 AM CDT 01/24/2019 6:37 AM CDT Leilani Noriega MD LAB - BODY FLUID ORD ERABLES Performing Organization Address City/[facility]/ZIP Co de Phone Number [address] [phone] * LD BODY FLUID ([facility] ONLY) (01/24/2019 6:30 AM CDT) LD Fluid 60 Not Established For Fluids Units/L 01/24/2019 7:00 AM CDT [facility] Comment: The reference range and other method performance specifications have not been established for this fluid. The test result must be integrated into the clinical context for interpretation. Fluid PERITONEAL FLUID / Unknown Collection / Unknown 01/24/2019 6:30 AM CDT 01/24/2019 6:37 AM CDT Leilani Noriega MD LAB - BODY FLUID ORD ERABLES Performing Organization Address City/[facility]/ZIP Co de Phone Number [address] [phone] * (ABNORMAL) B-TYPE NATRIURETIC PEPTIDE (01/24/2019 3:45 AM CDT) BNP 309(H) See Comment pg/mL 01/24/2019 4:21 AM CDT [facility] Comment: * Disclaimer: BNP results may be falsely high by 20% due * * to shift observed secondary to new reagent lot. Lab * * working with shell molder to resolve. * * * * Please contact [facility] Resource Conservation Manager with any questions * A decision threshold [...] Noriega MD LAB - CHEMISTRY FREDO CHAVES [facility] Organization Address City/State/ZIP Co de Phone Number [address] [phone] Care Teams Food Products Sales Representative Relationship Specialty Start Date End Date Efren Ramirez DO [address] [place] [address] PCP - General Internal Medicine 06/12/24
--- OUTSIDE RECORDS SUMMARY | 2024-08-12 09:33 | XMS_ITS | Encounter Summary ---
Author Organization [facility] Health Address [address] [place] [address] Care Team Providers Care Technical Coordinator Name Role Phone Dm Pena MD Primary Care Provider Efren Ramirez DO Primary Care Provider Encounter Details Date Type Department Care Team (Late st Contact Info) Description 01/26/2019 Procedure visit [facility] ANESTHESIA [address] [place] [address] Levi Candelario, DO [address] [facility] [address] [place] [address] Anesthesia Record Procedure Summary Procedure [...] st Contact Info) Description 08/14/2024 10:45 AM WASTE MANAGEMENT RECYCLING TECHNICIAN Office Visit [facility] - Orthopedics [address] [place] [address], [place] [address] Yaima Dobbins MD [address] [place] [address] [place] [address] documented as of this encounter Visit Diagnoses Not on filedocumented in this encounter Additional Health Concerns Infection Onset Date Last Indicated Resolved Time COVID-19 Under Investigation 09/20/2020 09/20/2020 09/20/2020 10:10 PM CDT COVID-19 Under Investigation 07/19/2021 07/19/2021 07/19/2021 1:09 PM WASTE MANAGEMENT RECYCLING TECHNICIAN COVID-19 Confirmed 07/19/2021 07/19/2021 4:33 AM WASTE MANAGEMENT RECYCLING TECHNICIAN COVID-19 Under Investigation 10/29/2023 10/29/2023 10/29/2023 9:28 AM CDT documented as of this encounter Care Teams Technical Coordinator Relationship Specialty Start Date End Date Dm Pena MD [address] [phone] PCP - General Family Medicine 02/06/19 06/11/24 Efren Ramirez DO [address] [place] [address] PCP - General Internal Medicine 06/12/24 documented as of this encounter
--- OUTSIDE RECORDS SUMMARY | 2024-08-12 09:33 | XMS_ITS | Encounter Summary ---
Author Organization [facility] Address [facility] [place] [address] Care Team Providers Care Shook Splicer Name Role Phone Lonnie Schaefer DO Primary Care Provider [phone] Dm Pena MD Primary Care Provider [phone] Encounter Details Date Type Department Care Team (Late st Contact Info) Description 09/15/2017 Abstract [facility] CONVERSION [address] [place] [address] , Generic Conversion, Social History Tobacco Use [...] on filedocumented in this encounter Care Teams Shook Splicer Relationship Specialty Start Date End Date Lonnie Schaefer DO [address] [place] [address] PCP - General 11/17/14 10/22/18 Dm Pena MD [address] [address] PCP - General FAMILY PRACTICE 10/23/18 documented as of this encounter
--- OUTSIDE RECORDS SUMMARY | 2024-08-12 09:33 | XMS_ITS ---
Author Organization [facility] Address [address] [facility] [place] [address] Care Team Providers Care Weaver Needle Loom Name Role Phone Efren Ramirez DO Primary Care Provider Transplant Episode Kidney, Liver Candidate [facility] ([place], [place]) - [facility] Center waitlisted on 02/11/2024 Marked as Active on 06/12/2024 Kidney, Liver CoordinatorLinh Forde RN Phone: N/A Fax: N/A Email: N/A Scores Score Value Updated Expires Exceptions/[place] sons CPRA Not available EPTS (Calc) 47 08/12/2024 UNOS MELD 23 07/24/2024 08/23/2024 MELD (Calc) 23 07/24/2024 [place] 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 Care Team Name Role Phone Fax Email Linh Forde RN Kidney, Liver Coordinator N/A N/A N/A Melecio Graves MD Transplant Machine Tender N/A N/A N/A Ariana Flood Lead Injection Mold Technician N/A N/A N/A Events Pre-Transplant Referred: 10/08/2023 Evaluation began: 10/10/2023 Committee: 01/29/2024 UNOS qualified: 03/14/2019 Center waitlisted: 02/11/2024 Dialysis History Dialysis History Start End Type Comments Center 03/14/2019 In-center Hemodialysis [facility] Dialysis Center Information Center Phone Fax Address [facility] [phone] [facility] [address]
--- OUTSIDE RECORDS SUMMARY | 2024-08-12 09:33 | XMS_ITS | Clinical Summary ---
Author Organization [facility] Address [facility] [place] [address] Care Team Providers Care Car Rental Deliverer Name Role Phone Dm Pena MD Primary Care Provider [phone] Allergies No known active allergies Medications melatonin [...] levETIRAcetam (KEPPRA) 750 MG tabletIndicatio ns:Seizure disorder ([facility]),Closed head injury, sequela Take 1 tablet (750 mg total) by mouth 2 (two) times daily. 60 tablet 3 03/16/2023 Active B Ztzmuri-F-Qhysw Acid (TRIPHROCAPS) 1 MG Cap Take 1 capsule by mouth daily. Active Active Problems Problem Noted Date Diagnosed Date Acute upper respiratory infection 07/05/2023 Non-recurrent unilateral ing uinal hernia without obstruction or gangrene 04/02/2023 Seizure disorder ([facility] HHS/HCC) 08/29/2022 Closed head injury, sequela 08/29/2022 Dyspepsia 08/29/2022 Senile cataract of right eye , unspecified age-related cataract type 11/02/2021 Renal hypertension 09/15/2021 Insomnia, unspecified type 03/02/2021 Erectile dysfunction, unspecified erectile dysfu nction type 04/26/2020 Acute pain of right knee 05/03/2019 Chronic renal failure 03/05/2019 Cirrhosis of liver with ascites ([facility] ) 03/05/2019 Pancytopenia ([facility]) 03/05/2019 Anemia in end-stage renal disease ([facility]) 02/26/2019 Hyperphosphatemia 02/26/2019 Metabolic acidosis 02/26/2019 Hyponatremia 02/06/2019 Portal hypertension ([facility]) 02/06/2019 Dyspnea 01/24/2019 Decompensated hepatic cirrhosis ([facility] ) 01/22/2019 Alcoholism ([facility]) 02/19/2015 Ascites 10/09/2014 Type 2 diabetes mellitus wit h chronic kidney disease, without long-term current use of insulin ([facility]) 09/14/2014 Overview (04/21/2019): Description: 04/2012 Gout 04/06/2014 Elevated liver enzymes 09/10/2013 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 Nephrotic syndrome 08/14/2013 Nephrolithiasis 08/14/2013 Obstructive sleep apnea 08/14/2013 Proteinuria 08/14/2013 Essential hypertension 08/02/2013 Overview (04/21/2019): Description: prior to 03/2003 Resolved Problems Problem Noted Date Diagnosed Date Resolved Date Acute upper respiratory infection 03/02/2021 01/25/2023 Peritonitis ([facility]) 04/18/2019 03/28/2022 SHIRA (acute kidney injury) 01/24/2019 Type 2 diabetes mellitus ([facility]) 08/14/2013 01/25/2023 Routine general medical exam ination [...] 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 on file Not on file Not on file Last Filed Vital Signs Vital Sign Reading Time Taken Comments Blood Pressure 124/62 07/05/2023 1:07 PM INSURANCE VERIFIER Pulse 57 12/05/2021 6:35 PM CDT Temperature 36.8 C (98.3 F) 08/29/2022 2:49 PM INSURANCE VERIFIER Respiratory Rate 17 12/05/2021 6:35 PM CDT Oxygen Saturation 96% 12/05/2021 6:35 PM CDT Inhaled Oxygen Concentration - - Weight 81.2 kg (179 lb) 07/05/2023 1:07 PM INSURANCE VERIFIER Height 175.3 cm (5' 9 ) 01/25/2023 1:06 PM CDT Body Mass Index 26.43 01/25/2023 1:06 PM CDT Plan of Treatment Health Maintenance Due Date Last Done Comments PHQ-2 ([facility]) 1977 Diabetes: Retinopathy Eye Exam 12/07/1983 Hepatitis [...] 01/2023, 11/02/2021, Additional history exists PHQ-2 ([facility]) 07/02/2024 Lipid Panel 12/24/2024 12/25/2023, 01/2023, 09/09/2013 [...] this topic Medical Devices Implanted Type Area Soil Fertility Extension Specialist Device Identifier Shelf Expiration Date Model / Serial / Lot Port Procedures Procedure Name Priority Date/Time Associated Diagnosis Comments COLONOSCOPY Routine 12/05/2021 5:24 PM CDT HEMOGLOBIN, GLYCOSYLATED Routine 11/02/2021 10:05 AM CDT Type 2 diabetes mellitus without complication, without long-term current use of insulin ([facility]) LIPID PANEL Routine 09/09/2013 9:23 [...] the left lateral decubitus position, the Olympus [id number] colonoscope was introduced into the rectum and [...] HGB A1C 4.8 4.2 - 6.5 % [facility] 11/02/2021 10:0 5 AM CDT Dm Pena MD LABORATORY Final Resul t [facility] [address] [address], * (ABNORMAL) LIPID PANEL (09/09/2013 9:23 AM [...] Health Maintenance Insurance MEDICARE MEDICARE Care Teams Car Rental Deliverer Relationship Specialty Start Date End Date Dm Pena MD [address] [phone] PCP - General FAMILY PRACTICE 10/23/18
[2024-08-12 09:52] LABS: Ammonia 69 umol/L (9-30); Ethanol < 10 mg/dL (<10)
[2024-08-12] MEDS: ASPIRIN 81 MG CHEWABLE TABLET 324 MG PO (10:03)
[2024-08-12 11:07] LABS: INR 1.4; Prothrombin Time 17.7 Seconds (11.1-14.7)
[2024-08-12 11:08] LABS: Partial Thromboplastin Time 35.6 Seconds (22.3-36.8)
[2024-08-12 11:34] LABS: Amphetamine Screen Urine Negative (Negative); Barbiturate Screen Urine Negative (Negative); Benzodiazepines Screen Urine Negative (Negative); Cannabinoid Screen Urine Negative (Negative); Cocaine Screen Urine Negative (Negative); Methadone Screen Urine Negative (Negative); Opiate Screen Urine Negative (Negative); Phencyclidine Screen Urine Negative (Negative)
--- NOTE | 2024-08-12 13:56 | P.HP_ITS ---
H&P: HPI History of Present Illness Date/Time: 08/12/24 13:56 Chief Complaint: Altered mental status Narrative: 58-year-old male with past medical history of alcoholic cirrhosis, esophageal varices, pancytopenia, seizures, end-stage renal disease on dialysis, presents the hospital with altered mental status. Patient states that he remembers going to dialysis and then woke up in ICU room. He states that he does have a history of having seizures after dialysis, and is on 750 mg Keppra b.i.d.. Patient is A&O x4 with no complaints at this current time. According to patient's friend he was at normal mentation when he was dropped off at dialysis. Dialysis he had about 3-4 L taken off. When the friend came back to pick him up, he was lethargic was not acting normal so he brought him to the hospital. Ammonia level 69, UA pending, urine toxicology negative, ethanol level negative, head CT negative for acute processes, chest x-ray negative for acute processes. In EKG shows sinus bradycardia with first-degree AV block which was seen previously on other EKGs. Patient being admitted for altered mental status, due to possibility of seizure given loading dose of Keppra 1 g. Review of Systems Review of Systems: 12 systems were reviewed and are negativ e except for as per HPI. [facility] Past Medical History Medical History Acute respiratory failure Alcoholic liver failure Cirrhosis Cirrhosis, alcoholic Coagulopathy Encephalopathy, hepatic 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 ESRD needing dialysis Facial hematoma Pancytopenia Renal osteodystrophy Seizure Thrombocytopenia Surgical History Surgical History H/O cataract removal with insertion of prosthetic lens History of vasectomy Status post biopsy of kidney Family History Family History Father Colon cancer Dementia Social History Social History (Updated 03/27/24 @ 08:39 by Vani Anderson) Social History: Caffeine-tea Smoking status: Never smoker Alcohol intake: never Alcohol use details: none since04/11/21 Substance use: never Substance use type: does not use Do You Feel Safe in your Home?: Yes Lack of Transportation: No Lack of Food: Never True Current Housing: I Have Housing Concerned About Future Housing: No Difficulty Paying Gas/Electric Bills: No Difficulty Paying for Meds: No Currently Unemployed: No Education: Master's Degree or Higher Difficulty w/ Childcare or Family Care: No Spiritual care concerns: No Meds Home Medications and Allergies Home Medications ?Medication ?Instructions ?Recorded ?Confirmed ?Type nadolol 20 mg tablet 20 mg PO DAILY #30 tabs 05/25/21 08/12/24 Rx levetiracetam 750 mg tablet 750 mg PO Q12H 02/21/24 08/12/24 History sevelamer carbonate 800 mg tablet 800 mg PO TID 02/21/24 08/12/24 History furosemide 80 mg tablet 80 mg PO BID #180 tabs 03/01/24 08/12/24 Rx melatonin 3 mg tablet 3 mg PO HS Sleep 03/27/24 08/12/24 History lactulose 20 gram/30 mL oral 20 g (30 mL) PO BID PRN 04/28/24 08/12/24 Rx solution Constipation/liver issues #1,419 mL pantoprazole 40 mg tablet,delayed See Rx Instructions .Route 04/28/24 08/12/24 Rx release .COMPLEX #90 tabs Allergies Allergy/AdvReac Type Severity Reaction Status Date / Time No Known Allergies Allergy Unknown Verified 08/12/24 11:26 Vital Signs Vital Signs - 24 hr 08/12/24 08:35 08/12/24 08:37 08/12/24 08:53 Temperature 98.6 F Pulse Rate 58 L 63 Respiratory Rate 14 20 Blood Pressure 158/75 H 164/76 H Pulse Oximetry 98 100 100 Oxygen Delivery Room Air Room Air 08/12/24 09:26 08/12/24 09:31 08/12/24 10:01 Temperature Pulse Rate 61 63 63 Respiratory Rate 14 16 14 Blood Pressure 160/70 H 150/70 H 157/77 H Pulse Oximetry 100 100 100 Oxygen Delivery 08/12/24 10:02 08/12/24 10:31 08/12/24 11:26 Temperature Pulse Rate 61 64 63 Respiratory Rate 15 19 12 Blood Pressure 158/71 H 148/73 H Pulse Oximetry 100 100 Oxygen Delivery 08/12/24 11:30 08/12/24 12:01 08/12/24 12:46 Temperature Pulse Rate 63 61 60 Respiratory Rate 13 13 12 Blood Pressure 155/72 H 153/71 H Pulse Oximetry 100 100 100 Oxygen Delivery Exam Narrative: General: well appearing, appears stated age. HEENT: normocephalic, atraumatic. Mucous membranes moist. EOMI, PERRLA, bilateral sclera anicteric, no conjunctival injection. Neck supple without JVD, lymphadenopathy, or bruit. Respiratory: clear to ascultation bilaterally. No rales/rhonic/wheezes. Cardiovascular: Regular rate and rhythm, normal S1-S2 upon ascultation. No murmurs, rubs, or clicks. PMI is nondisplaced, capillary refill less than 3 second. Abdomen: Soft, round, no pulsatile masses, nondistended and nontender. No rebound, no guarding. No CVA tenderness, no hepatosplenomegaly. Bowel sounds present to all four quadrants. No high pitch or tinkling sounds, resonant to percussion. Extremities: No cyanosis, clubbing, or edema present. Pulses are palpable 2/2. Active ROM to all four extremities. Neuro: Alert and orientated x 4. PERRLA. Cranial nerves 2-12 intact without focal deficit. Skin: Warm, dry, and intact, without rash, erythema, or lesion. Psych: pleasant, cooperative, normal speech, normal affect, no hallucinations, no dysarthia H&P: Results Labs Labs: Short CBC 08/12/24 Range/Units 09:05 WBC 2.7 L (4.5-10.0) K/mm3 Hgb 9.6 L (14.0-18.0) g/dL Hct 29.6 L (42.0-52.0) % Plt Count 35 L (150-375) k/mm3 BMP 08/12/24 09:05 Sodium 141 Potassium 4.2 Chloride 100 Carbon Dioxide 28 BUN 36 H D Creatinine 5.50 H Glucose 110 Calcium 9.3 Liver Function 08/12/24 Range/Units 09:05 Total Bilirubin 1.2 (0.2-1.3) mg/dL AST 32 (17-59) U/L ALT 17 (6-50) U/L Alkaline Phosphatase 181 H (38-126) U/L Albumin 3.7 (3.5-5.1) g/dL Assessment and Plan Assessment and plan (1) Acute alteration in mental status: Code(s): R41.82 - Altered mental status, unspecified Status: Acute Assessment and Plan: Patient has a history of post dialysis seizures, will consult Neurology Patient and x4 on exam UA pending Urine toxicology and ethanol level negative (2) Seizure: Code(s): R56.9 - Unspecified convulsions Status: Acute Assessment and Plan: Patient has a history of post dialysis seizures consult Neurology IV Keppra loading dose Brain MRI pending Ordered home dose Keppra (3) Pancytopenia: Code(s): D61.818 - Other pancytopenia Status: Acute Assessment and Plan: Patient was in hospital on 05/25/2021 he received 3 units of platelets and 1 unit FFP and vitamin K however it does not appear that he had seen Hematology at that time we, patient does not bleed he has been seen by header setup operator Consult hematology (4) Cirrhosis: Code(s): K74.60 - Unspecified cirrhosis of liver Status: Acute Assessment and Plan: Has been sober for the last 3 half years Takes p.r.n. lactulose (5) ESRD needing dialysis: Code(s): N18.6 - End stage renal disease; Z99.2 - Dependence on renal dialysis Status: Chronic Assessment and Plan: AV fistula Consult nephrology Nguyen batistaikaterin Continue Renvela Quality VTE Prophylaxis VTE prophylaxis: mechanical ordered If No VTE Prophylaxis Answer both mechanical and pharmacologic: Reason no pharmacologic proph: medical contraindication thrombocytopenia Hospitalist MIPS Advance Care Plan I have confirmed that the patient's Advanced Care Plan is present, code status is documented, or surrogate decision maker is listed in patient medical record.: Yes Medication Reconciliation I have utilized all available resources to obtain, update and review the patients current medications (includes all prescriptions, OTC, herbals, cannabis, and nutritional supplements).: Yes
[2024-08-12] MEDS: levETIRAcetam 1000MG/NACL100ML 1,000 MG/100 ML BAG 400 MG IVPB (14:20)
--- NOTE | 2024-08-12 15:58 | PC.NURSE ---
Arrived to the floor via stretcher from the ER. Alert and oriented at this time. Vital signs stable. Cardiac monitoring placed on and functioning at this time. Recreation Therapy Aide/friend went to the patient's house to get a copy of updated medication list. No acute distress noted at this time.
--- NOTE | 2024-08-12 18:19 | P.CONONC_ITS ---
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 Graves at [facility]. According to the patient he is on the transplant list for liver and kidney transplant. Labs showed pancytopenia. His pancytopenia is secondary to liver cirrhosis and anemia is mostly secondary to chronic kidney disease check iron studies and vitamin B12 level as well as Epogen level. Patient is not showed that if he is getting Epogen with hemodialysis. I will give him a dose of Epogen while he is in patient. Platelet transfusion as long as platelet is more than 20,000 and patient is asymptomatic I have provided him my office information for follow-up. There is no need for bone marrow biopsy testing. I have answered all the questions to patient's satisfaction. HPI Data of Consult Date/Time: 08/12/24 18:19 Requesting Physician: Louisa Mcduffie MD Primary Care Provider: Efren Ramirez DO Consult Narrative Narrative: Jj Cuello is a 58 year old male end-stage renal disease on hemodialysis for last 3 years duration, history of membranous proliferative glomerulonephritis and liver cirrhosis came into the hospital from the hemodialysis center after he was found acting lethargic. Labs showed WBC count of 2.7, hemoglobin 9[place] [address]. CTA brain showed normal findings. Chest x-ray came back normal. Other labs showed creatinine of 5.5 with bilirubin of 1.2. Ammonia level was elevated at 69. According to the patient he is on transplant list for liver and kidney transplant. He sees Dr. Norris for his kidney disease and Dr. Graves at [facility] for liver cirrhosis. He denies any bleeding. Denies any fevers and chills. He seems to be awake and alert. Review of Systems 2 Review of Systems: Review of system as per HPI otherwise negative PMFSH Past Medical History Medical History Acute respiratory failure Alcoholic liver failure Cirrhosis Cirrhosis, alcoholic Coagulopathy Encephalopathy, hepatic 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 ESRD needing dialysis Facial hematoma Pancytopenia Renal osteodystrophy Seizure Thrombocytopenia Surgical History Surgical History H/O cataract removal with insertion of prosthetic lens History of vasectomy Status post biopsy of kidney Family History Family History Father Colon cancer Dementia Social History Social History (Updated 03/27/24 @ 08:39 by Vani Anderson) Social History: Caffeine-tea Smoking status: Never smoker Alcohol intake: never Alcohol use details: none since04/11/21 Substance use: never Substance use type: does not use Do You Feel Safe in your Home?: Yes Lack of Transportation: No Lack of Food: Never True Current Housing: I Have Housing Concerned About Future Housing: No Difficulty Paying Gas/Electric Bills: No Difficulty Paying for Meds: No Currently Unemployed: No Education: Master's Degree or Higher Difficulty w/ Childcare or Family Care: No Spiritual care concerns: No Meds Home Medications and Allergies Home Medications ?Medication ?Instructions ?Recorded ?Confirmed ?Type nadolol 20 mg tablet 20 mg PO DAILY #30 tabs 05/25/21 08/12/24 Rx levetiracetam 750 mg tablet 750 mg PO Q12H 02/21/24 08/12/24 History sevelamer carbonate 800 mg tablet 800 mg PO TID 02/21/24 08/12/24 History furosemide 80 mg tablet 80 mg PO BID #180 tabs 03/01/24 08/12/24 Rx melatonin 3 mg tablet 3 mg PO HS Sleep 03/27/24 08/12/24 History lactulose 20 gram/30 mL oral 20 g (30 mL) PO BID PRN 04/28/24 08/12/24 Rx solution Constipation/liver issues #1,419 mL pantoprazole 40 mg tablet,delayed See Rx Instructions .Route 04/28/24 08/12/24 Rx release .COMPLEX #90 tabs Allergies Allergy/AdvReac Type Severity Reaction Status Date / Time No Known Allergies Allergy Unknown Verified 08/12/24 11:26 Vital Signs Vital Signs - 24 hr 08/12/24 08:35 08/12/24 08:37 08/12/24 08:53 Temperature 37.0 C Pulse Rate 58 L 63 Respiratory Rate 14 20 Blood Pressure 158/75 H 164/76 H Pulse Oximetry 98 100 100 Oxygen Delivery Room Air Room Air 08/12/24 09:26 08/12/24 09:31 08/12/24 10:01 Temperature Pulse Rate 61 63 63 Respiratory Rate 14 16 14 Blood Pressure 160/70 H 150/70 H 157/77 H Pulse Oximetry 100 100 100 Oxygen Delivery 08/12/24 10:02 08/12/24 10:31 08/12/24 11:26 Temperature Pulse Rate 61 64 63 Respiratory Rate 15 19 12 Blood Pressure 158/71 H 148/73 H Pulse Oximetry 100 100 Oxygen Delivery 08/12/24 11:30 08/12/24 12:01 08/12/24 12:46 Temperature Pulse Rate 63 61 60 Respiratory Rate 13 13 12 Blood Pressure 155/72 H 153/71 H Pulse Oximetry 100 100 100 Oxygen Delivery 08/12/24 14:22 08/12/24 16:00 08/12/24 16:00 Temperature Pulse Rate 60 63 63 Respiratory Rate 13 16 Blood Pressure 143/72 H 148/68 H Pulse Oximetry 100 100 Oxygen Delivery 08/12/24 18:00 Temperature Pulse Rate 62 Respiratory Rate Blood Pressure Pulse Oximetry Oxygen Delivery Exam 2 Narrative: Lungs are clear to auscultation bilaterally Cardiovascular regular rate rhythm no murmurs Abdomen soft nontender nondistended Extremities no edema Results Labs 08/12/24 09:05 08/12/24 09:05 Labs: Short CBC 08/12/24 Range/Units 09:05 WBC 2.7 L (4.5-10.0) K/mm3 Hgb 9.6 L (14.0-18.0) g/dL Hct 29.6 L (42.0-52.0) % Plt Count 35 L (150-375) k/mm3 [facility] 08/12/24 09:05 Sodium 141 Potassium 4.2 Chloride 100 Carbon Dioxide 28 BUN 36 H D Creatinine 5.50 H Glucose 110 Calcium 9.3 Liver Function 08/12/24 Range/Units 09:05 Total Bilirubin 1.2 (0.2-1.3) mg/dL AST 32 (17-59) U/L ALT 17 (6-50) U/L Alkaline Phosphatase 181 H (38-126) U/L Albumin 3.7 (3.5-5.1) g/dL
[2024-08-12] MEDS: EPOETIN ALFA 20,000 UNITS/ML VIAL 20000 UNITS SUB-Q (19:36)
--- NOTE | 2024-08-12 20:14 | ADMGEN ---
This patient, Jj Cuello, was admitted to Intensive Care Unit-1 on 08/12/2024 at 1558. Patient/family oriented to hospital policies and general routines including ID bracelet, bed and alarms, visiting hours, pain management, procedures, bathroom and other care routines, personal items, smoking policy, room service/diet, and visiting hours. Information on how to activate the Rapid Response Team has been discussed. Patient/Family are encouraged to report perceived risks to care and to ask questions if they do not understand what they are told or what they should do.
[2024-08-13] VITALS (9 sets, daily range): BP systolic 126–147; BP diastolic 64–77; PULSE 54–59; RESP 11–18; TEMP 36.4–36.8; O2SAT 96–98
[2024-08-13 05:15] LABS: Basophils Percent Auto 0.6 % (0.2-1.2); Eosinophils Absolute Auto 0.1 K/mm3 (0-0.3); Eosinophils Percent Auto 3.4 % (0-4.4); Hematocrit 24.2 % (42.0-52.0); Hemoglobin 7.7 g/dL (14.0-18.0); Immature Platelet Fraction Pct 2.6 % (0.9-11.2); Lymphocytes Absolute Auto 0.61 K/mm3 (0.9-3.2); Lymphocytes Percent Auto 35.1 % (18.3-44.2); Mean Corpuscular HGB Conc 31.8 g/dl (32-36); Mean Corpuscular Hemoglobin 32.5 pg (26-34); Mean Corpuscular Volume 102.1 fl (80-100); Mean Platelet Volume 10.2 fl (7.4-10.4); Monocytes Absolute Auto 0.2 K/mm3 (0.1-0.6); Monocytes Percent Auto 9.8 % (2.6-8.5); Neutrophils Absolute Auto 0.9 K/mm3 (1.3-6.7); Neutrophils Percent Auto 51.1 % (45.5-73.1); Platelet Count Result 28 k/mm3 (150-375); Red Blood Count 2.37 M/mm3 (4.6-6.20); Red Cell Distribution Width 15.9 % (11.5-14.5)
[2024-08-13 05:28] LABS: Alanine Aminotransferase 13 U/L (6-50); Albumin Level 2.8 g/dL (3.5-5.1); Alkaline Phosphatase 125 U/L (38-126); Anion Gap 10 mmol/L (4-12); Aspartate Amino Transferase 24 U/L (17-59); Bilirubin,Total 0.8 mg/dL (0.2-1.3); Blood Urea Nitrogen 47 mg/dL (9-20); Calcium 9.4 mg/dL (8.4-10.2); Carbon Dioxide 28 mmol/L (22-30); Chloride 100 mmol/L (98-107); Estimated CRCL calculation 10 ml/min; Estimated Glomerular Filt Rate 8; Glucose 103 mg/dL (65-110); Potassium 4.4 mmol/L (3.4-5.0); Sodium 138 mmol/L (137-145)
[2024-08-13 05:41] LABS: White Blood Count 1.7 K/mm3 (4.5-10.0)
[2024-08-13 05:45] LABS: Anisocytosis 1+; Ovalocytes 1+; Platelet Estimate Decreased (Adequate); Schistocytes None Seen
[2024-08-13 05:55] LABS: Iron 143 ug/dL (49-181)
[2024-08-13 06:04] LABS: Percent Iron Saturation 67 % (20-50)
[2024-08-13] MEDS: levETIRAcetam 250 MG TABLET 750 MG PO ×2 (09:05→20:10)
[2024-08-13] MEDS: SEVELAMER CARBONATE 800 MG TABLET 1600 MG PO ×3 (09:05→20:10)
[2024-08-13] MEDS: LACTULOSE 20 GM/30 ML UDC PO ×2 (09:05→20:10)
[2024-08-13] MEDS: FUROSEMIDE 20 MG TABLET PO (09:05)
[2024-08-13] MEDS: PANTOPRAZOLE 40 MG TABLET PO (09:05)
[2024-08-13 11:24] LABS: Folic Acid 7.8 ng/mL (2.76->20)
--- NOTE | 2024-08-13 11:42 | P.CONNEU_ITS ---
Assessment and Plan Assessment and plan (1) Encephalopathy: Code(s): G93.40 - Encephalopathy, unspecified Status: Acute (2) Seizure: Code(s): R56.9 - Unspecified convulsions Status: Acute Plan 1. End-stage renal disease requiring dialysis 2. History of seizures in the past as well related to the dialysis and patient is already loaded with the Keppra and MRI is not indicating of any stroke Elaine or hydrocephalus. His treatment and need to be continued as such if any further question arises please do not hesitate to contact Consult date: 08/13/24 HPI: Jj Cuello is a 58 year old male admitted to the hospital through the emergency room for the complaint of change in the mental status in addition to the history of 1. End-stage renal disease for which he is on hemodialysis 2. Cirrhosis . As per the information available the renal dialysis center 3 to 4 L were taken off, he was behaving somewhat lethargic and also reported that he has not been feeling well over the last 1 week acting intermittently abnormal and he was started on the blood thinner medication in the other ER otherwise medications included sildenafil 50mg p.r.n., levetiracetam 750mg q.12 hours, hydralazine 25mg 3 times a day, and melatonin 3mg HS p.r.n., he is not allergic to any medications, and past history is consistent with 1. Alcoholic liver failure with cirrhosis 2. A coagulopathy 3. Erythropoietin deficiency anemia with esophageal varices 4. Intermittent hepatic encephalopathy and 5. Renal osteodystrophy 6. Seizures. His never smoker, former alcohol intake or, and initial exam in the emergency room was grossly nonfocal. Investigation revealed him to be with leukopenia WBC of 2.7 hemoglobin 9.6 MCV 103.5 protime 17.7, BUN 47 with creatinine 7.44 and estimated GFR only 8, toxicology screen negative, MRI of the brain with multiple foci of increased T2 weighted signal abnormalities within the periventricular white matter consistent with demyelination but otherwise no hydrocephalus no space- Occupying lesion, chest x-ray negative. Review of Systems 2 Review of Systems: All systems reviewed & are unremarkable except as noted in HPI and below PMFSH Past Medical History Medical History Esophageal varices in alcoholic cirrhosis Facial hematoma Pancytopenia Seizure Cirrhosis, alcoholic Acute respiratory failure Cirrhosis Renal osteodystrophy Erythropoietin deficiency anemia Thrombocytopenia Coagulopathy Encephalopathy, hepatic Alcoholic liver failure ESRD needing dialysis Surgical History Surgical History H/O cataract removal with insertion of prosthetic lens History of vasectomy Status post biopsy of kidney Family History Family History Father Colon cancer Dementia Social History Social History (Updated 03/27/24 @ 08:39 by Vani Anderson) Social History: Caffeine-tea Smoking status: Never smoker Alcohol intake: never Alcohol use details: none since04/11/21 Substance use: never Substance use type: does not use Do You Feel Safe in your Home?: Yes Lack of Transportation: No Lack of Food: Never True Current Housing: I Have Housing Concerned About Future Housing: No Difficulty Paying Gas/Electric Bills: No Difficulty Paying for Meds: No Currently Unemployed: No Education: Master's Degree or Higher Difficulty w/ Childcare or Family Care: No Spiritual care concerns: No Meds Home Medications and Allergies Home Medications ?Medication ?Instructions ?Recorded ?Confirmed ?Type nadolol 20 mg tablet 20 mg PO DAILY #30 tabs 05/25/21 08/12/24 Rx levetiracetam 750 mg tablet 750 mg PO Q12H 02/21/24 08/12/24 History sevelamer carbonate 800 mg tablet 1,600 mg PO TID 02/21/24 08/13/24 History furosemide 80 mg tablet 80 mg PO BID #180 tabs 03/01/24 08/12/24 Rx melatonin 3 mg tablet 3 mg PO HS Sleep 03/27/24 08/12/24 History lactulose 20 gram/30 mL oral 20 g (30 mL) PO BID PRN 04/28/24 08/12/24 Rx solution Constipation/liver issues #1,419 mL pantoprazole 40 mg tablet,delayed See Rx Instructions .Route 04/28/24 08/12/24 Rx release .COMPLEX #90 tabs Allergies Allergy/AdvReac Type Severity Reaction Status Date / Time No Known Allergies Allergy Unknown Verified 08/12/24 11:26 Vital Signs Vital Signs - 24 hr 08/12/24 12:01 08/12/24 12:46 08/12/24 14:22 Temperature Pulse Rate 61 60 60 Respiratory Rate 13 12 13 Blood Pressure 155/72 H 153/71 H 143/72 H Pulse Oximetry 100 100 100 Oxygen Delivery 08/12/24 16:00 08/12/24 16:00 08/12/24 18:00 Temperature Pulse Rate 63 63 62 Respiratory Rate 16 Blood Pressure 148/68 H Pulse Oximetry 100 Oxygen Delivery 08/12/24 19:40 08/12/24 20:00 08/12/24 20:00 Temperature 36.6 C Pulse Rate 58 L 58 L 64 Respiratory Rate 14 14 Blood Pressure 119/60 Pulse Oximetry 98 98 Oxygen Delivery Room Air 08/12/24 22:00 08/13/24 00:00 08/13/24 00:00 Temperature 36.8 C Pulse Rate 57 L 59 L 58 L Respiratory Rate 14 Blood Pressure 126/67 Pulse Oximetry 98 Oxygen Delivery 08/13/24 02:00 08/13/24 03:55 08/13/24 04:00 Temperature Pulse Rate 59 L 59 L 58 L Respiratory Rate 14 Blood Pressure Pulse Oximetry 98 Oxygen Delivery Room Air 08/13/24 04:00 08/13/24 05:58 08/13/24 08:00 Temperature 36.6 C 36.8 C Pulse Rate 58 L 57 L 59 L Respiratory Rate 11 L 18 Blood Pressure 134/64 143/69 H Pulse Oximetry 96 97 Oxygen Delivery 08/13/24 08:00 08/13/24 08:00 08/13/24 09:07 Temperature Pulse Rate 59 L Respiratory Rate Blood Pressure Pulse Oximetry 97 Oxygen Delivery Room Air Room Air Exam 2 Narrative: Exam today revealed him to be awake alert cooperative in no obvious acute distress, head normocephalic with no bruit, ear nose throat examination normal, neck supple, heart regular, lungs clear, abdomen soft, neurological is awake alert oriented his speech nor dysphasic not dysarthric not dysphonic the cranial examination is normal motor and sensory exam normal reflexes sluggish plantars downgoing Results Labs 08/13/24 04:32 08/13/24 04:32 Labs: Short CBC 08/13/24 Range/Units 04:32 WBC 1.7 L* (4.5-10.0) K/mm3 Hgb 7.7 L (14.0-18.0) g/dL Hct 24.2 L (42.0-52.0) % Plt Count 28 L (150-375) k/mm3 BMP 08/13/24 04:32 Sodium 138 Potassium 4.4 Chloride 100 Carbon Dioxide 28 BUN 47 H D Creatinine 7.44 H Glucose 103 Calcium 9.4 Liver Function 08/13/24 Range/Units 04:32 Total Bilirubin 0.8 (0.2-1.3) mg/dL AST 24 (17-59) U/L ALT 13 (6-50) U/L Alkaline Phosphatase 125 (38-126) U/L Albumin 2.8 L (3.5-5.1) g/dL
--- NOTE | 2024-08-13 11:51 | P.PNIM_ITS ---
Progress Note: A&P Assessment and Plan (1) Acute alteration in mental status: Code(s): R41.82 - Altered mental status, unspecified Status: Acute Assessment and Plan: Patient has a history of post dialysis seizures, will consult Neurology Patient and x4 on exam UA pending Urine toxicology and ethanol level negative (2) Seizure: Code(s): R56.9 - Unspecified convulsions Status: Acute Assessment and Plan: Patient has a history of post dialysis seizures consult Neurology IV Keppra loading dose Brain MRI no acute cerebral infarction, no acute subacute hemorrhage, Multiple foci of increased T2-weighted signal abnormalities within the periventricular w mo matter, suggesting demyelination. -Keppra gets dialyzed with hemodialysis which could have have caused possible seizures and altered mental status -will recommend taking Keppra after dialysis (3) Pancytopenia: Code(s): D61.818 - Other pancytopenia Status: Acute Assessment and Plan: Patient was in hospital on 05/25/2021 he received 3 units of platelets and 1 unit FFP and vitamin K however it does not appear that he had seen Hematology at that time we, patient does not bleed he has been seen by cigarette vendor Appreciate Heme-Onc evaluation and recommendations. Pancytopenia thought to be secondary to liver cirrhosis, anemia is most likely secondary to chronic kidney disease. Has ordered Epogen. 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 Presented from dialysis center for altered mental status. Patient had dialysis on 08/12/2024 with 0886-7223 mL in fluid removal. Patient was lethargic and not acting normal post dialysis and was brought to the ED. Ammonia levels were 69. Urine tox screen was negative, alcohol level were negative, head CT was negative chest x-ray was negative for acute process. This morning patient is awake, alert, oriented x3, nonfocal, able to answer questions appropriately and follow commands. States he is probably at baseline. Denies any chest pain, shortness of breath, abdominal pain, nausea, vomiting, dizziness Review of Systems Review of Systems: All systems reviewed & are unremarkable except as noted in HPI and below Exam Narrative: General: well appearing, appears stated age. HEENT: normocephalic, atraumatic. Mucous membranes moist. EOMI, PERRLA, bilateral sclera anicteric, no conjunctival injection. Neck supple without JVD, lymphadenopathy, or bruit. Respiratory: clear to ascultation bilaterally. No rales/rhonic/wheezes. Cardiovascular: Regular rate and rhythm, normal S1-S2 upon ascultation. No murmurs, rubs, or clicks. PMI is nondisplaced, capillary refill less than 3 second. Abdomen: Soft, round, no pulsatile masses, nondistended and nontender. No rebound, no guarding. No CVA tenderness, no hepatosplenomegaly. Bowel sounds present to all four quadrants. No high pitch or tinkling sounds, resonant to percussion. Extremities: No cyanosis, clubbing, or edema present. Pulses are palpable 2/2. Active ROM to all four extremities. Neuro: Alert and orientated x 4. PERRLA. Answers to questions appropriately and follows simple commands in all extremities Skin: Warm, dry, and intact, without rash, erythema, or lesion. Psych: pleasant, cooperative, normal speech, normal affect, no hallucinations, no dysarthia Objective Data Vital Signs Vital Signs: Vital Signs - 24 hr 08/12/24 12:01 08/12/24 12:46 08/12/24 14:22 Temperature Pulse Rate 61 60 60 Respiratory Rate 13 12 13 Blood Pressure 155/72 H 153/71 H 143/72 H Pulse Oximetry 100 100 100 Oxygen Delivery 08/12/24 16:00 08/12/24 16:00 08/12/24 18:00 Temperature Pulse Rate 63 63 62 Respiratory Rate 16 Blood Pressure 148/68 H Pulse Oximetry 100 Oxygen Delivery 08/12/24 19:40 08/12/24 20:00 08/12/24 20:00 Temperature 97.8 F Pulse Rate 58 L 58 L 64 Respiratory Rate 14 14 Blood Pressure 119/60 Pulse Oximetry 98 98 Oxygen Delivery Room Air 08/12/24 22:00 08/13/24 00:00 08/13/24 00:00 Temperature 98.2 F Pulse Rate 57 L 59 L 58 L Respiratory Rate 14 Blood Pressure 126/67 Pulse Oximetry 98 Oxygen Delivery 08/13/24 02:00 08/13/24 03:55 08/13/24 04:00 Temperature Pulse Rate 59 L 59 L 58 L Respiratory Rate 14 Blood Pressure Pulse Oximetry 98 Oxygen Delivery Room Air 08/13/24 04:00 08/13/24 05:58 08/13/24 08:00 Temperature 98 F 98.3 F Pulse Rate 58 L 57 L 59 L Respiratory Rate 11 L 18 Blood Pressure 134/64 143/69 H Pulse Oximetry 96 97 Oxygen Delivery 08/13/24 08:00 08/13/24 08:00 08/13/24 09:07 Temperature Pulse Rate 59 L Respiratory Rate Blood Pressure Pulse Oximetry 97 Oxygen Delivery Room Air Room Air Intake/Output Intake/Output: Intake & Output 08/10/24 08/11/24 08/12/24 08/13/24 23:59 23:59 23:59 23:59 Intake Total 580 400 Output Total 0 Balance 580 400 Meds/Results Medications: Active Medications Generic Name Dose Route Start Last Admin Trade Name Freq PRN Reason Stop Dose Admin Furosemide 20 mg 08/13/24 09:00 08/13/24 09:05 Furosemide 20 Mg Tablet PO 20 mg DAILY DARWIN Administration Lactulose 20 gm 08/13/24 17:00 Lactulose 20 Gm/30 Ml Udc PO BID DARWIN Levetiracetam 750 mg 08/13/24 09:00 08/13/24 09:05 Levetiracetam 250 Mg Tablet PO 750 mg Q12HR DARWIN Administration Melatonin 3 mg 08/13/24 21:00 Melatonin 3 Mg Tablet PO HS DARWIN Pantoprazole Sodium 40 mg 08/13/24 09:00 08/13/24 09:05 Pantoprazole 40 Mg Tablet PO 40 mg DAILY DARWIN Administration Sevelamer Carbonate 1,600 mg 08/13/24 09:00 08/13/24 09:05 Sevelamer Carbonate 800 Mg Tablet PO 1,600 mg TID DARWIN Administration Radiology Results: ITS Impressions Head/Neck CTA 08/12/24 09:20 IMPRESSION: 1. Normal brain. 2. No aneurysm or significant intracranial arterial stenosis. 3. 0% stenosis of the proximal internal carotid arteries relative to normal distal artery lumen diameters (NASCET criteria). Chest X-Ray 08/12/24 09:29 IMPRESSION: 1. No acute cardiopulmonary disease. Brain MRI 08/12/24 21:15 IMPRESSION: No acute cerebral infarction. No acute or subacute hemorrhage. Multiple foci of increased T2-weighted signal abnormalities within the periventricular white matter, suggesting demyelination. Knee X-Ray 08/13/24 11:13 Impression: No acute abnormality. Stable degenerative change and small joint effusion. Labs Labs: Laboratory Results - last 24 hr 08/13/24 08/13/24 04:30 04:32 WBC 1.7 L* RBC 2.37 L Hgb 7.7 L Hct 24.2 L MCV 102.1 H MCH 32.5 MCHC 31.8 L RDW 15.9 H Plt Count 28 L MPV 10.2 Immature Gran % (Auto) 0.0 Neut % (Auto) 51.1 Lymph % (Auto) 35.1 Sandoval % (Auto) 9.8 H Eos % (Auto) 3.4 Baso % (Auto) 0.6 Lymph # (Auto) 0.61 L Sandoval # (Auto) 0.2 Eos # (Auto) 0.1 Baso # (Auto) 0.0 Abs Immat Gran (auto) 0.00 Absolute Neuts (auto) 0.9 L Absolute Nucleated RBC 0.000 Nucleated RBC % 0.0 Platelet Estimate Decreased % Immature Plt Fraction 2.6 Anisocytosis 1+ Ovalocytes 1+ Schistocytes None seen Sodium 138 Potassium 4.4 Chloride 100 Carbon Dioxide 28 Anion Gap 10 BUN 47 H D Creatinine 7.44 H Estim Creat Clear Calc 10 Estimated GFR 8 L Glucose 103 Calcium 9.4 Magnesium 2.0 Iron 143 TIBC 214 L % Saturation 67 H Ferritin 425.00 H Total Bilirubin 0.8 AST 24 ALT 13 Alkaline Phosphatase 125 Total Protein 6.0 L Albumin 2.8 L Vitamin B12 653.0 Folate 7.8 Quality VTE Prophylaxis VTE prophylaxis: mechanical ordered
--- NOTE | 2024-08-13 12:15 | P.CONNP_ITS ---
Assessment and Plan Assessment and plan (1) End stage renal disease: Code(s): N18.6 - End stage renal disease Status: Chronic Assessment and Plan: * plan HD tomorrow * eventually transition back to outpatient schedule of Sun/Sun/Fridays while hospitalized * follow electrolytes, volume status, and clearance (2) AMS (altered mental status): Code(s): R41.82 - Altered mental status, unspecified Status: Acute Assessment and Plan: * clinical improvement noted at this time * as noted on admission * imaging noted (on 08/12): * CT scan of the brain normal * Brain MRI with no acute cerebral infarction, no acute subacute hemorrhage, multiple foci of increased T2-weighted signal abnormalities within the periventricular white matter, suggesting demyelination * urine toxicology and ethanol level negative * ammonia level 69 * resumed on lactulose (3) Seizure: Code(s): R56.9 - Unspecified convulsions Status: Acute Assessment and Plan: * known history of post dialysis seizures * is this what occurred prior to admission(?) * Neurology recommendations noted * on [facility] (4) Anemia: Code(s): D64.9 - Anemia, unspecified Status: Chronic Assessment and Plan: * due to ESRD with contributions from liver disease * Epogen with HD * follow trend of H/H (5) Cirrhosis: Code(s): K74.60 - Unspecified cirrhosis of liver Status: Acute Assessment and Plan: * known history * has been sober for the last 3 half years * continue lactulose given ammonia level (6) Pancytopenia: Code(s): D61.818 - Other pancytopenia Status: Acute Assessment and Plan: * presumed to be secondary to liver disease * anemia further complicated by ESRD * Hem/Onc recommendations noted I will continue to follow the patient with you while he remains hospitalized and make further recommendations as deemed necessary. Thank you for allowing me to participate in the care of this patient. L History of Present Illness Reason for Consult Consult date: 08/13/24 Reason for consult: end stage renal disease Chief Complaint Chief complaint: AMS/Encephalopathy History of Present Illness Narrative: The patient is a 58-year-old male with a past medical history as outlined below who presented to [facility] Emergency Room from his outpatient dialysis center with altered mental status. A great majority information I have obtained is from review of the electronic medical record as well as discussion with his outpatient dialysis center and the physician/nurses involved in his care as the patient does not recall the sequence of events that led to his admission to the hospital. The patient presented to his outpatient dialysis unit yesterday for his scheduled dialysis treatment. He recalls being dropped off there by his friend and starting his dialysis treatment but then does not recall anything afterwards until he woke up in the ICU this morning. According to the patient's friend, he was at his baseline mentation when he was dropped off at dialysis and from my discussion with the outpatient dialysis nurses, he was awake and alert but a bit slow to respond but otherwise is relatively stable. He was initiated on his dialysis treatment without any issues or problems and approximately 3 hours into his dialysis treatment, his mentation change the point of decreased responsiveness with significant stimulation. His dialysis treatment was aborted and he was subsequently taken to the emergency room via EMS for further assessment. Workup and evaluation emergency room demonstrated the patient be hemodynamically stable and he was responsive but only gave 1 word answers to questions (i.e. yes or no response). His chemistry demonstrated labs consistent with his known history of end-stage renal disease but with no critical electrolyte abnormalities and his cbc was significant for pancytopenia which is a chronic issue at baseline. Urine tox screen and ethanol level was negative and a CT scan of his head and neck did not demonstrate any acute process or vascular issue. His chest x-ray was negative for any acute process as well and his EKG just showed sinus bradycardia with similar findings on previous EKGs. His ammonia level came back at 69 is urinalysis was unremarkable. There was some concern that he may have had a seizure for the ends of dialysis as he has had this issue/problem of 4 so he was given a dose IV Keppra in the emergency room. Over the course of his stay in the emergency room, his mental status seemed to slowly improve. He was subsequently admitted to the hospital for further evaluation and therapy given his altered mentation and events that occurred yesterday morning. Since his admission to the ICU, his mentation has normalized as he is currently alert and oriented x3. As mentioned above, he recalls going to dialysis but the events following this and subsequent admission to the hospital are not clear to him as all he recalls is waking up in the ICU earlier this morning. Renal consultation was requested due to his end-stage renal disease. The patient only dialyzes on a Sunday, Sunday, Sunday dialysis schedule at [facility] under the care of Dr. Bashir Norris. From a dialysis perspective, he has been doing reasonably well with relative stability in his monthly labs and volume status. I believe he was unable to attend dialysis on Sunday and hence he rescheduled his dialysis treatment for Sunday with with tentative plan to resume his normal schedule on Sunday prior to the events that led to his subsequent admission to the hospital. From my discussion with his outpatient dialysis unit, he had approximately 3 L of fluid removed although he was set for 4 L to get him back to his dry weight. Aside from his altered mentation, there were no other significant issues or problems during his last dialysis treatment yesterday prior to his transfer to the emergency room. Currently, at the time my evaluation, the patient appears to be doing reasonably well and is in no acute distress with stable mentation. Review of Systems 2 Review of Systems: As per HPI. [facility] Past Medical History Medical History Esophageal varices in alcoholic cirrhosis Facial hematoma Pancytopenia Seizure Cirrhosis, alcoholic Acute respiratory failure Cirrhosis Renal osteodystrophy Erythropoietin deficiency anemia Thrombocytopenia Coagulopathy Encephalopathy, hepatic Alcoholic liver failure ESRD needing dialysis Surgical History Surgical History H/O cataract removal with insertion of prosthetic lens History of vasectomy Status post biopsy of kidney Family History Family History Father Colon cancer Dementia Social History Social History (Updated 03/27/24 @ 08:39 by Vani Anderson) Social History: Caffeine-tea Smoking status: Never smoker Alcohol intake: never Alcohol use details: none since04/11/21 Substance use: never Substance use type: does not use Do You Feel Safe in your Home?: Yes Lack of Transportation: No Lack of Food: Never True Current Housing: I Have Housing Concerned About Future Housing: No Difficulty Paying Gas/Electric Bills: No Difficulty Paying for Meds: No Currently Unemployed: No Education: Master's Degree or Higher Difficulty w/ Childcare or Family Care: No Spiritual care concerns: No Meds Home Medications and Allergies Home Medications ?Medication ?Instructions ?Recorded ?Confirmed ?Type nadolol 20 mg tablet 20 mg PO DAILY #30 tabs 05/25/21 08/12/24 Rx levetiracetam 750 mg tablet 750 mg PO Q12H 02/21/24 08/12/24 History sevelamer carbonate 800 mg tablet 1,600 mg PO TID 02/21/24 08/13/24 History furosemide 80 mg tablet 80 mg PO BID #180 tabs 03/01/24 08/12/24 Rx melatonin 3 mg tablet 3 mg PO HS Sleep 03/27/24 08/12/24 History pantoprazole 40 mg tablet,delayed See Rx Instructions .Route 04/28/24 08/12/24 Rx release .COMPLEX #90 tabs lactulose 20 gram/30 mL oral 20 g PO BID Constipation/liver 08/13/24 08/13/24 History solution issues Allergies Allergy/AdvReac Type Severity Reaction Status Date / Time No Known Allergies Allergy Unknown Verified 08/12/24 11:26 Vital Signs Vital Signs Temp Pulse Resp BP Pulse Ox O2 Del Method 08/13/24 12:00 97.5 F L 54 L 18 147/77 H 96 08/13/24 08:00 59 L 08/13/24 08:00 Room Air 08/13/24 08:00 98.3 F 59 L 18 143/69 H 97 08/13/24 05:58 57 L 08/13/24 04:00 98 F 58 L 11 L 134/64 96 08/13/24 04:00 58 L 08/13/24 03:55 59 L 14 98 Room Air 08/13/24 02:00 59 L 08/13/24 00:00 58 L 08/13/24 00:00 98.2 F 59 L 14 126/67 98 08/12/24 22:00 57 L 08/12/24 20:00 64 08/12/24 20:00 97.8 F 58 L 14 119/60 98 08/12/24 19:40 58 L 14 98 Room Air 08/12/24 18:00 62 Exam 2 Narrative: GENERAL APPEARANCE: well developed well nourished male in no acute distress HEENT: normocephalic, atraumatic, normal conjunctiva and sclera, nares patient NECK: no lymphadenopathy, thyromegaly, or JVD MOUTH: normal lips, teeth, and gums CARDIOVASCULAR: RRR, normal S1 and S2, no rub RESPIRATORY: clear to auscultation anteriorly ABDOMEN: soft, nontender, nondistended, positive bowel sounds present EXTREMITIES: no evidence of cyanosis, clubbing, or edema NEUROLOGICAL: alert and oriented x 3; CN II - XII intact bilaterally; no focal deficits noted Results Lab Results 08/14/24 03:33 08/14/24 03:33 Lab results: Most recent lab results Calcium 9.4 mg/dL (8.4-10.2) 08/13/24 04:32 Magnesium 2.0 mg/dL (1.6-2.3) 08/13/24 04:32
--- NOTE | 2024-08-13 15:45 | PC.NURSE ---
[facility] transfer center called and asked if patient still needed transfer; contacted Dr. Reid; Dr. Reid stated that patient was doing better so he did not need to be transferred anymore; [facility] transfer center updated that patient will be staying at our facility.
[2024-08-13] MEDS: MELATONIN 3 MG TABLET PO (20:10)
[2024-08-14] VITALS (27 sets, daily range): BP systolic 133–166; BP diastolic 60–70; PULSE 57–68; RESP 13–20; TEMP 36.6–37.7; O2SAT 95–100
[2024-08-14 03:46] LABS: Basophils Percent Auto 0.4 % (0.2-1.2); Eosinophils Absolute Auto 0.1 K/mm3 (0-0.3); Eosinophils Percent Auto 3.5 % (0-4.4); Hematocrit 25.9 % (42.0-52.0); Hemoglobin 8.6 g/dL (14.0-18.0); Immature Granulocyte Absolute 0.01 K/mm3 (0.00-0.031); Immature Granulocyte Percent A 0.4 % (0-0.5); Immature Platelet Fraction Pct 2.7 % (0.9-11.2); Lymphocytes Absolute Auto 0.66 K/mm3 (0.9-3.2); Lymphocytes Percent Auto 28.7 % (18.3-44.2); Mean Corpuscular HGB Conc 33.2 g/dl (32-36); Mean Corpuscular Hemoglobin 33.9 pg (26-34); Mean Platelet Volume 9.7 fl (7.4-10.4); Monocytes Absolute Auto 0.2 K/mm3 (0.1-0.6); Monocytes Percent Auto 8.3 % (2.6-8.5); Neutrophils Absolute Auto 1.4 K/mm3 (1.3-6.7); Neutrophils Percent Auto 58.7 % (45.5-73.1); Platelet Count Result 26 k/mm3 (150-375); Red Blood Count 2.54 M/mm3 (4.6-6.20); Red Cell Distribution Width 15.9 % (11.5-14.5); White Blood Count 2.3 K/mm3 (4.5-10.0)
[2024-08-14 03:55] LABS: Alanine Aminotransferase 14 U/L (6-50); Alkaline Phosphatase 130 U/L (38-126); Anion Gap 12 mmol/L (4-12); Aspartate Amino Transferase 24 U/L (17-59); Blood Urea Nitrogen 57 mg/dL (9-20); Calcium 9.7 mg/dL (8.4-10.2); Carbon Dioxide 26 mmol/L (22-30); Chloride 99 mmol/L (98-107); Estimated CRCL calculation 9 ml/min; Estimated Glomerular Filt Rate 6; Glucose 97 mg/dL (65-110); Magnesium 2.1 mg/dL (1.6-2.3); Phosphorus 4.2 mg/dL (2.5-4.5); Potassium 4.7 mmol/L (3.4-5.0); Sodium 137 mmol/L (137-145)
[2024-08-14 08:47] LABS: Ammonia 181 umol/L (9-30)
[2024-08-14 08:48] LABS: Glucose Point of Care 106 mg/dl (65-105)
[2024-08-14 09:41] LABS: Hepatitis B Surface Antigen Negative (Negative)
[2024-08-14 10:07] LABS: Hepatitis B Surface Anti Res Positive
[2024-08-14] MEDS: LACTULOSE 20 GM/30 ML UDC PO ×3 (10:18→17:23)
[2024-08-14] MEDS: levETIRAcetam 250 MG TABLET 750 MG PO ×2 (10:18→20:29)
--- NOTE | 2024-08-14 11:06 | PCFNICU ---
ICU Rounding Note: Pt current nutrition is NPO. Last recorded weight is 80.6 kg. Bowel Motility:No BM Labs Reviewed: GFR 6, BUN 57, Cr 8.91, Alb 3.0 Meds Noted:Keppra, Lactulose, Protonix Skin: WNL Additional Notes: Patient in with AMS. Diet order: NPO. NGT to suction. Dialysis planned for today. Will continue to monitor daily in ICU rounds for any further nutritional interventions.
--- NOTE | 2024-08-14 11:12 | P.CONIN_ITS ---
Assessment and Plan Assessment and plan (1) Encephalopathy: Code(s): G93.40 - Encephalopathy, unspecified Status: Acute Assessment and Plan: 06/13: Patient was found to be obtunded, protecting airway, stat CT scan of the brain was negative -ammonia levels were elevated to 181 -encephalopathy is likely related to hepatic encephalopathy secondary to hyperammonemia -NG tube was inserted, patient was given his scheduled lactulose -discuss with Nephrology, patient will be dialyzed JOSUÉ -continue to monitor ammonia level q.6 hours (2) Acute alteration in mental status: Code(s): R41.82 - Altered mental status, unspecified Status: Acute Assessment and Plan: 06/11: Patient admitted with altered mental status post dialysis. -CT scan of the brain on admission was normal -Brain MRI no acute cerebral infarction, no acute subacute hemorrhage, Multiple foci of increased T2-weighted signal abnormalities within the periventricular white matter, suggesting demyelination. Urine toxicology and ethanol level negative L (3) Seizure: Code(s): R56.9 - Unspecified convulsions Status: Acute Assessment and Plan: Patient has a history of post dialysis seizures Appreciate Neurology evaluation recommendation Continue Keppra per NG tube -Keppra gets dialyzed with hemodialysis which could have have caused possible seizures and altered mental status -will recommend taking Keppra after dialysis L (4) Pancytopenia: Code(s): D61.818 - Other pancytopenia Status: Acute Assessment and Plan: Patient was in hospital on 05/25/2021 he received 3 units of platelets and 1 unit FFP and vitamin K however it does not appear that he had seen Hematology at that time we, patient does not bleed he has been seen by training facilitator Appreciate Heme-Onc evaluation and recommendations. Pancytopenia thought to be secondary to liver cirrhosis, anemia is most likely secondary to chronic kidney disease. Has ordered Epogen. 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 per tube tube (6) ESRD needing dialysis: Code(s): N18.6 - End stage renal disease; Z99.2 - Dependence on renal dialysis Status: Chronic Assessment and Plan: AV fistula Nephrology following, dialysis per city driver Lasix b.i.d. Continue Renvela Plan DVT prophylaxis: SCDs Stress ulcer prophylaxis: Protonix Nutrition: NPO for now Code Status: Full code Critical Care Time Spent: 48 minutes Due to a high probability of clinically significant, life threatening deterioration, the patient required my highest level of preparedness to intervene emergently and I personally spent this critical care time directly and personally managing the patient. This critical care time included obtaining a history; examining the patient; pulse oximetry; ordering and review of studies; arranging urgent treatment with development of a management plan; evaluation of patient's response to treatment; frequent reassessment; and discussions with other providers. It was exclusive of separately billable procedures and treating other patients and teaching time. Please see Assessment and Plan section and the rest of the note for further information on patient assessment and treatment This dictation may have been done utilizing a voice recognition system. Attempts have been made to correct errors. However, there may be uncorrected grammatical, spelling, and recognitions errors present. Manufacturing Engineering Technician Consult Note Consult date: 08/14/24 Reason for consult: Encephalopathy, hyperammonemia HPI: Jj Cuello is a 58 year old male with past medical history of acute respiratory failure, alcoholic liver failure, cirrhosis, hepatic encephalopathy, esophageal varices, end-stage renal disease requiring dialysis, pancytopenia, seizures to [facility] on 08/12/2024 with complains of altered mental status. Patient was at the dialysis center, he walked in the dialysis center without any issues and after dialysis patient was found to be lethargic and was sent to the ER for further evaluation. Ammonia levels were 69, urine drug screen was negative, alcohol was negative. Head CT was negative, chest x-ray was negative for acute process.. CTA head/neck was also negative. Patient woke up upon arrival to the ICU as an overflow patient. On 08/13/2024 patient was awake, alert, oriented, able to talk and follows simple commands. He states that sometimes he has seizures after dialysis. He also stated that he takes all his medications prior to dialysis. Patient was started on lactulose on 08/13/2024. 08/14/2024: Patient was being evaluated in the ICU as an overflow patient, patient was obtunded, unable to answer any questions, barely could open his eyes, was slumped to with his right. Given his low platelet counts I ordered a stat CT scan of the brain which was negative. Repeat ammonia level was 181. NG tube was inserted and patient given lactulose. Patient was made ICU status, discussed with Nephrology, dialysis was started urgently. Patient was protecting his airway, adequate O2 sats, normal blood pressures. Has been in sinus bradycardia since admission. Review of Systems 2 Review of Systems: ROS unobtainable: Yes unobtainable due to medical condition and unobtainable due to mental status PMFSH Past Medical History Medical History Esophageal varices in alcoholic cirrhosis Facial hematoma Pancytopenia Seizure Cirrhosis, alcoholic Acute respiratory failure Cirrhosis Renal osteodystrophy Erythropoietin deficiency anemia Thrombocytopenia Coagulopathy Encephalopathy, hepatic Alcoholic liver failure ESRD needing dialysis Surgical History Surgical History H/O cataract removal with insertion of prosthetic lens History of vasectomy Status post biopsy of kidney Family History Family History Father Colon cancer Dementia Social History Social History (Updated 03/27/24 @ 08:39 by Vani Anderson) Social History: Caffeine-tea Smoking status: Never smoker Alcohol intake: never Alcohol use details: none since04/11/21 Substance use: never Substance use type: does not use Do You Feel Safe in your Home?: Yes Lack of Transportation: No Lack of Food: Never True Current Housing: I Have Housing Concerned About Future Housing: No Difficulty Paying Gas/Electric Bills: No Difficulty Paying for Meds: No Currently Unemployed: No Education: Master's Degree or Higher Difficulty w/ Childcare or Family Care: No Spiritual care concerns: No Meds Home Medications and Allergies Home Medications ?Medication ?Instructions ?Recorded ?Confirmed ?Type nadolol 20 mg tablet 20 mg PO DAILY #30 tabs 05/25/21 08/12/24 Rx levetiracetam 750 mg tablet 750 mg PO Q12H 02/21/24 08/12/24 History sevelamer carbonate 800 mg tablet 1,600 mg PO TID 02/21/24 08/13/24 History furosemide 80 mg tablet 80 mg PO BID #180 tabs 03/01/24 08/12/24 Rx melatonin 3 mg tablet 3 mg PO HS Sleep 03/27/24 08/12/24 History pantoprazole 40 mg tablet,delayed See Rx Instructions .Route 04/28/24 08/12/24 Rx release .COMPLEX #90 tabs lactulose 20 gram/30 mL oral 20 g PO BID Constipation/liver 08/13/24 08/13/24 History solution issues Allergies Allergy/AdvReac Type Severity Reaction Status Date / Time No Known Allergies Allergy Unknown Verified 08/12/24 11:26 Vital Signs Vital Signs - 24 hr 08/13/24 14:15 08/13/24 15:02 08/13/24 16:00 Temperature 97.5 F L Pulse Rate 54 L Respiratory Rate 18 Blood Pressure 147/77 H Pulse Oximetry 96 Oxygen Delivery Room Air Room Air 08/13/24 20:00 08/14/24 00:00 08/14/24 10:57 Temperature 97.9 F Pulse Rate 59 L 58 L 59 L Respiratory Rate 16 Blood Pressure 146/69 H Pulse Oximetry 97 Oxygen Delivery Room Air Exam 2 Narrative: General: Encephalopathy, protecting airway HEENT: Dilated but reactive, sclera is clear. Neck: Supple Respiratory: clear to auscultation bilaterally. Adequate air entry, no wheeze. Cardiovascular: Sinus bradycardia normal S1-S2, 2/6 systolic murmur, likely aortic stenosis Abdomen: Soft, nontender, nondistended, normoactive bowel sounds Extremities: No cyanosis, clubbing, or edema present. Pulses are palpable 2/2. Neuro: Patient is obtunded, encephalopathic, barely opens his eyes but does not follow simple commands, flaccid left upper extremity, he does have tone in the rest of the 3 extremities Skin: Warm, dry, and intact, without rash, erythema, or lesion. Psych: Unable to assess at this time Results Labs 08/14/24 03:33 08/14/24 03:33 Labs: Short CBC 08/14/24 Range/Units 03:33 WBC 2.3 L (4.5-10.0) K/mm3 Hgb 8.6 L (14.0-18.0) g/dL Hct 25.9 L (42.0-52.0) % Plt Count 26 L (150-375) k/mm3 BMP 08/14/24 03:33 Sodium 137 Potassium 4.7 Chloride 99 Carbon Dioxide 26 BUN 57 H D Creatinine 8.91 H Glucose 97 Calcium 9.7 Liver Function 08/14/24 Range/Units 03:33 Total Bilirubin 1.0 (0.2-1.3) mg/dL AST 24 (17-59) U/L ALT 14 (6-50) U/L Alkaline Phosphatase 130 H (38-126) U/L Albumin 3.0 L (3.5-5.1) g/dL Quality VTE Prophylaxis VTE prophylaxis: mechanical ordered If No VTE Prophylaxis Answer both mechanical and pharmacologic: Reason no mechanical VTE proph: medical contraindication (Thrombocytopenia) Hospitalist MIPS Advance Care Plan I have confirmed that the patient's Advanced Care Plan is present, code status is documented, or surrogate decision maker is listed in patient medical record.: Yes Medication Reconciliation I have utilized all available resources to obtain, update and review the patients current medications (includes all prescriptions, OTC, herbals, cannabis, and nutritional supplements).: Yes
--- NOTE | 2024-08-14 12:10 | P.PNNP_ITS ---
Progress Note: A&P Assessment and Plan (1) End stage renal disease: Code(s): N18.6 - End stage renal disease Status: Chronic Assessment and Plan: * HD today * eventually transition back to outpatient schedule of Sun/Sun/Fridays while hospitalized * likely plan HD tomorrow * follow electrolytes, volume status, and clearance (2) Encephalopathy: Code(s): G93.40 - Encephalopathy, unspecified Status: Acute Assessment and Plan: * presumably hepatic encephalopathy given marked rise in ammonia level * NG tube in place for medications including lactulose * repeat STAT CT of head (on 08/14) negative * follow repeat ammonia levels * follow mentation (3) AMS (altered mental status): Code(s): R41.82 - Altered mental status, unspecified Status: Acute Assessment and Plan: * clinical improvement noted on 08/13 * deterioration noted this AM (08/14) * imaging noted (on 08/12): * CT scan of the brain normal * Brain MRI with no acute cerebral infarction, no acute subacute hemorrhage, multiple foci of increased T2-weighted signal abnormalities within the periventricular white matter, suggesting demyelination * urine toxicology and ethanol level negative * see #2 (4) Seizure: Code(s): R56.9 - Unspecified convulsions Status: Acute Assessment and Plan: * known history of post dialysis seizures * is this what occurred prior to admission(?) * Neurology recommendations noted * on [facility] (5) Anemia: Code(s): D64.9 - Anemia, unspecified Status: Chronic Assessment and Plan: * due to ESRD with contributions from liver disease * Epogen with HD * follow trend of H/H (6) Cirrhosis: Code(s): K74.60 - Unspecified cirrhosis of liver Status: Acute Assessment and Plan: * known history * has been sober for the last 3 half years * continue lactulose given ammonia level (7) Pancytopenia: Code(s): D61.818 - Other pancytopenia Status: Acute Assessment and Plan: * presumed to be secondary to liver disease * anemia further complicated by ESRD * Hem/Onc recommendations noted Discussed case with Dr. Reid. Will continue to follow. L Subjective Date/time seen: 08/14/24 12:10 Interval history: Follow-up for end stage renal disease on hemodialysis. Mental status has significantly declined since I last saw him -- obtunded and unresponsive; STAT head CT unrevealing but AM labs noted elevated ammonia level; NG tube placed for ongoing lactulose administration; transferred to ICU stsatus given this change in condition; tolerating dialysis treatment at the time of my visit (seen on HD at 12:00PM); stable hemodynamics noted and able to protect airway when seen. Exam 2 Narrative: General: WD/WN male in NAD - obtunded Heart: normal S1 and S2; no rub Lungs: clear anteriorly Abdomen: soft, nontender, nondistended, positive bowel sounds Extremities: no cyanosis or clubbing; no edema Skin: warm and dry Objective Data Vital Signs Vital Signs: Vital Signs Temp Pulse Resp BP Pulse Ox O2 Del Method 08/14/24 12:00 98.6 F 64 15 136/60 98 08/14/24 12:00 62 142/63 H 08/14/24 11:45 57 L 133/62 08/14/24 11:30 58 L 140/61 08/14/24 11:15 58 L 142/61 H 08/14/24 11:00 60 146/70 H 08/14/24 10:57 59 L 08/14/24 10:45 60 141/66 H 08/14/24 10:30 58 L 144/64 H 08/14/24 10:22 58 L 151/63 H 08/14/24 10:00 98.9 F 57 L 16 149/63 H 99 08/14/24 10:00 57 L 13 149/63 H 99 08/14/24 08:00 99.8 F H 68 16 166/68 H 97 08/14/24 00:00 97.9 F 58 L 16 146/69 H 97 08/13/24 20:00 59 L Room Air 08/13/24 16:00 97.5 F L 54 L 18 147/77 H 96 08/13/24 15:02 Room Air Intake/Output Intake/Output: Intake & Output 08/11/24 08/12/24 08/13/24 08/14/24 23:59 23:59 23:59 23:59 Intake Total 580 1140 300 Output Total 0 0 Balance 580 1140 300 Meds/Results Medications: Active Medications Generic Name Dose Route Start Last Admin Trade Name Freq PRN Reason Stop Dose Admin Epoetin Nasir-epbx 10,000 units 08/14/24 18:17 08/14/24 12:31 Epoetin Nasir-Epbx 10,000 Units/Ml Vial IV PUSH 08/14/24 18:18 10,000 units ONCE ONE Administration Furosemide 20 mg 08/13/24 09:00 08/14/24 08:39 Furosemide 20 Mg Tablet PO Not Given DAILY DARWIN Albumin Human 50 mls @ 999 mls/hr 08/14/24 06:16 Albutein IVPB 09/13/24 06:15 Q10M PRN HYPOTENSION Lactulose 20 gm 08/14/24 13:00 08/14/24 13:13 Lactulose 20 Gm/30 Ml Udc PO 20 gm TID DARWIN Administration Levetiracetam 750 mg 08/14/24 21:00 Levetiracetam 250 Mg Tablet PO Q12HR DARWIN Melatonin 3 mg 08/13/24 21:00 08/13/24 20:10 Melatonin 3 Mg Tablet PO 3 mg HS DARWIN Administration Pantoprazole Sodium 40 mg 08/13/24 09:00 08/14/24 08:39 Pantoprazole 40 Mg Tablet PO Not Given DAILY DARWIN Sevelamer Carbonate 1,600 mg 08/13/24 09:00 08/14/24 13:13 Sevelamer Carbonate 800 Mg Tablet PO 1,600 mg TID DARWIN Administration Radiology Results: ITS Impressions Head/Neck CTA 08/12/24 09:20 IMPRESSION: 1. Normal brain. 2. No aneurysm or significant intracranial arterial stenosis. 3. 0% stenosis of the proximal internal carotid arteries relative to normal distal artery lumen diameters (NASCET criteria). Chest X-Ray 08/12/24 09:29 IMPRESSION: 1. No acute cardiopulmonary disease. Brain MRI 08/12/24 21:15 IMPRESSION: No acute cerebral infarction. No acute or subacute hemorrhage. Multiple foci of increased T2-weighted signal abnormalities within the periventricular white matter, suggesting demyelination. Knee X-Ray 08/13/24 11:13 Impression: No acute abnormality. Stable degenerative change and small joint effusion. Head CT 08/14/24 09:09 IMPRESSION: 1. Normal brain. Abdomen X-Ray 08/14/24 09:56 IMPRESSION: 1. Nasogastric tube tip in the stomach. Labs Labs: Laboratory Tests 08/14/24 03:33 08/14/24 03:33 Calcium 9.7 Phosphorus 4.2 Magnesium 2.1 Total Bilirubin 1.0 AST 24 ALT 14 Alkaline Phosphatase 130 H Total Protein 6.0 L Albumin 3.0 L
[2024-08-14 12:14] LABS: MRSA (PCR) NOT DETECTED (NOT DETECTE)
--- NOTE | 2024-08-14 12:15 | P.CONOP_ITS ---
Assessment and Plan Assessment and plan (1) Knee pain, right: Code(s): M25.561 - Pain in right knee Status: Acute Assessment and Plan: Patient is knee pain right. Some mild swelling of the knee. He was walking as to how this time he has a tended it is impossible to do much more of an exam her evaluation on it. He has had surgery on his knee although not sure what he had, possibly a quadriceps repair recommended if he has problems he should return to his operative Dr. History of Present Illness HPI Consult date: 08/14/24 Chief complaint: AMS/Encephalopathy Narrative: Patient has mild pain and swelling of the right knee he has had recent surgery which was done openly he does not have a knee replacement on the right knee. Review of Systems 2 Musculoskeletal: Musculoskeletal: Reports arthralgias and Reports joint swelling PMFSH Past Medical History Medical History Esophageal varices in alcoholic cirrhosis Facial hematoma Pancytopenia Seizure Cirrhosis, alcoholic Acute respiratory failure Cirrhosis Renal osteodystrophy Erythropoietin deficiency anemia Thrombocytopenia Coagulopathy Encephalopathy, hepatic Alcoholic liver failure ESRD needing dialysis Surgical History Surgical History H/O cataract removal with insertion of prosthetic lens History of vasectomy Status post biopsy of kidney Family History Family History Father Colon cancer Dementia Social History Social History (Updated 03/27/24 @ 08:39 by Vani Anderson) Social History: Caffeine-tea Smoking status: Never smoker Alcohol intake: never Alcohol use details: none since04/11/21 Substance use: never Substance use type: does not use Do You Feel Safe in your Home?: Yes Lack of Transportation: No Lack of Food: Never True Current Housing: I Have Housing Concerned About Future Housing: No Difficulty Paying Gas/Electric Bills: No Difficulty Paying for Meds: No Currently Unemployed: No Education: Master's Degree or Higher Difficulty w/ Childcare or Family Care: No Spiritual care concerns: No Meds Home Medications and Allergies Home Medications ?Medication ?Instructions ?Recorded ?Confirmed ?Type nadolol 20 mg tablet 20 mg PO DAILY #30 tabs 05/25/21 08/12/24 Rx levetiracetam 750 mg tablet 750 mg PO Q12H 02/21/24 08/12/24 History sevelamer carbonate 800 mg tablet 1,600 mg PO TID 02/21/24 08/13/24 History furosemide 80 mg tablet 80 mg PO BID #180 tabs 03/01/24 08/12/24 Rx melatonin 3 mg tablet 3 mg PO HS Sleep 03/27/24 08/12/24 History pantoprazole 40 mg tablet,delayed See Rx Instructions .Route 04/28/24 08/12/24 Rx release .COMPLEX #90 tabs lactulose 20 gram/30 mL oral 20 g PO BID Constipation/liver 08/13/24 08/13/24 History solution issues Allergies Allergy/AdvReac Type Severity Reaction Status Date / Time No Known Allergies Allergy Unknown Verified 08/12/24 11: Vital Signs Vital Signs - 24 hr 08/13/24 14:15 08/13/24 15:02 08/13/24 16:00 Temperature 97.5 F L Pulse Rate 54 L Respiratory Rate 18 Blood Pressure 147/77 H Pulse Oximetry 96 Oxygen Delivery Room Air Room Air 08/13/24 20:00 08/14/24 00:00 08/14/24 08:00 Temperature 97.9 F 99.8 F H Pulse Rate 59 L 58 L 68 Respiratory Rate 16 16 Blood Pressure 146/69 H 166/68 H Pulse Oximetry 97 97 Oxygen Delivery Room Air 08/14/24 10:00 08/14/24 10:00 08/14/24 10:22 Temperature 98.9 F Pulse Rate 57 L 57 L 58 L Respiratory Rate 13 16 Blood Pressure 149/63 H 149/63 H 151/63 H Pulse Oximetry 99 99 Oxygen Delivery 08/14/24 10:30 08/14/24 10:45 08/14/24 10:57 Temperature Pulse Rate 58 L 60 59 L Respiratory Rate Blood Pressure 144/64 H 141/66 H Pulse Oximetry Oxygen Delivery 08/14/24 11:00 08/14/24 11:15 08/14/24 11:30 Temperature Pulse Rate 60 58 L 58 L Respiratory Rate Blood Pressure 146/70 H 142/61 H 140/61 Pulse Oximetry Oxygen Delivery 08/14/24 11:45 08/14/24 12:00 Temperature Pulse Rate 57 L 62 Respiratory Rate Blood Pressure 133/62 142/63 H Pulse Oximetry Oxygen Delivery Exam 2 Narrative: Patient has a healed surgical incision on his knees. He has mild swelling of the knee. There is no redness or erythema about the knee. Results Labs 08/14/24 03:33 08/14/24 03:33 Labs: Abnormal lab results 08/14/24 08/14/24 08/14/24 Range/Units 03:33 08:24 08:33 WBC 2.3 L (4.5-10.0) K/mm3 RBC 2.54 L (4.6-6.20) M/mm3 Hgb 8.6 L (14.0-18.0) g/dL Hct 25.9 L (42.0-52.0) % MCV 102.0 H (80-100) fl RDW 15.9 H (11.5-14.5) % Plt Count 26 L (150-375) k/mm3 Lymph # (Auto) 0.66 L (0.9-3.2) K/mm3 BUN 57 H D (9-20) mg/dL Creatinine 8.91 H (0.7-1.3) mg/dL Estimated GFR 6 L (59 - ) POC Capillary Glucose 106 H (65-105) mg/dl Alkaline Phosphatase 130 H (38-126) U/L Ammonia 181 H (9-30) umol/L Total Protein 6.0 L (6.3-8.2) g/dL Albumin 3.0 L (3.5-5.1) g/dL H & H 08/12/24 08/13/24 08/14/24 Range/Units 09:05 04:32 03:33 Hgb 9.6 L 7.7 L 8.6 L (14.0-18.0) g/dL Hct 29.6 L 24.2 L 25.9 L (42.0-52.0) % Coagulation 08/12/24 Range/Units 09:05 INR 1.4 All other labs normal.
[2024-08-14] MEDS: EPOETIN ALFA-EPBX 10,000 UNITS/ML VIAL 10000 UNITS IV PUSH (12:31)
[2024-08-14] MEDS: SEVELAMER CARBONATE 800 MG TABLET 1600 MG PO ×2 (13:13→17:22)
[2024-08-14 15:12] LABS: Ammonia 58 umol/L (9-30)
--- NOTE | 2024-08-14 15:52 | PC.NURSE ---
Dialysis note: Treatment cancelled in multi-treatment room and moved to icu per medical staff order. Initial set-up disposed -cx labor and supplies.
[2024-08-14] MEDS: MELATONIN 3 MG TABLET PO (20:29)
[2024-08-14 21:02] LABS: Ammonia 34 umol/L (9-30)
[2024-08-15] VITALS (32 sets, daily range): BP systolic 130–164; BP diastolic 60–86; PULSE 57–64; RESP 12–20; TEMP 36.4–37.1; O2SAT 98–100
[2024-08-15 05:30] LABS: Ammonia 37 umol/L (9-30)
[2024-08-15 05:31] LABS: Alanine Aminotransferase 13 U/L (6-50); Albumin Level 3.1 g/dL (3.5-5.1); Alkaline Phosphatase 126 U/L (38-126); Anion Gap 14 mmol/L (4-12); Aspartate Amino Transferase 24 U/L (17-59); Basophils Percent Auto 0.9 % (0.2-1.2); Bilirubin,Total 1.3 mg/dL (0.2-1.3); Blood Urea Nitrogen 32 mg/dL (9-20); Calcium 9.5 mg/dL (8.4-10.2); Carbon Dioxide 22 mmol/L (22-30); Chloride 102 mmol/L (98-107); Eosinophils Absolute Auto 0.1 K/mm3 (0-0.3); Eosinophils Percent Auto 3.5 % (0-4.4); Estimated CRCL calculation 14 ml/min; Estimated Glomerular Filt Rate 11; Glucose 102 mg/dL (65-110); Hematocrit 25.1 % (42.0-52.0); Hemoglobin 8.1 g/dL (14.0-18.0); Immature Granulocyte Absolute 0.02 K/mm3 (0.00-0.031); Immature Granulocyte Percent A 0.9 % (0-0.5); Lymphocytes Absolute Auto 0.51 K/mm3 (0.9-3.2); Lymphocytes Percent Auto 22.6 % (18.3-44.2); Magnesium 2.1 mg/dL (1.6-2.3); Mean Corpuscular HGB Conc 32.3 g/dl (32-36); Mean Corpuscular Hemoglobin 33.5 pg (26-34); Mean Corpuscular Volume 103.7 fl (80-100); Mean Platelet Volume 10.9 fl (7.4-10.4); Monocytes Absolute Auto 0.2 K/mm3 (0.1-0.6); Monocytes Percent Auto 7.5 % (2.6-8.5); Neutrophils Absolute Auto 1.5 K/mm3 (1.3-6.7); Neutrophils Percent Auto 64.6 % (45.5-73.1); Phosphorus 3.8 mg/dL (2.5-4.5); Potassium 3.9 mmol/L (3.4-5.0); Red Blood Count 2.42 M/mm3 (4.6-6.20); Red Cell Distribution Width 15.6 % (11.5-14.5); Sodium 138 mmol/L (137-145); White Blood Count 2.3 K/mm3 (4.5-10.0)
[2024-08-15 05:34] LABS: INR 1.5; Prothrombin Time 19.1 Seconds (11.1-14.7)
[2024-08-15 05:35] LABS: Partial Thromboplastin Time 38.1 Seconds (22.3-36.8)
[2024-08-15 05:50] LABS: Platelet Count Result 21 k/mm3 (150-375)
[2024-08-15 05:51] LABS: Ovalocytes 1+; Platelet Estimate Decreased (Adequate); Schistocytes None Seen
[2024-08-15 05:52] LABS: D Dimer 1.74 ug/mL (<0.48)
[2024-08-15] MEDS: FUROSEMIDE 20 MG TABLET PO (08:38)
[2024-08-15] MEDS: PANTOPRAZOLE 40 MG TABLET PO (08:38)
[2024-08-15] MEDS: LACTULOSE 20 GM/30 ML UDC PO ×3 (08:38→17:43)
[2024-08-15] MEDS: SEVELAMER CARBONATE 800 MG TABLET 1600 MG PO ×2 (08:39→12:56)
[2024-08-15] MEDS: levETIRAcetam 250 MG TABLET 750 MG PO ×2 (08:39→22:20)
--- NOTE | 2024-08-15 08:55 | P.PNINT_ITS ---
Progress Note: A&P Assessment and Plan (1) Encephalopathy: Code(s): G93.40 - Encephalopathy, unspecified Status: Acute Assessment and Plan: RESOLVED 06/13: Patient was found to be obtunded, protecting airway, 06/13: stat CT scan of the brain was negative -ammonia levels were elevated to 181 -encephalopathy is likely related to hepatic encephalopathy secondary to hyperammonemia -NG tube was inserted, patient was given his scheduled lactulose -discuss with Nephrology, patient will be dialyzed JOSUÉ -continue to monitor ammonia level q.6 hours 06/14: Patient is awake, alert, oriented x3. Ammonia levels are down to 37 this morning -will continue lactulose t.i.d. (2) Acute alteration in mental status: Code(s): R41.82 - Altered mental status, unspecified Status: Acute Assessment and Plan: 06/11: Patient admitted with altered mental status post dialysis. -06/11: And neck CTA was normal, no aneurysm or significant intracranial arterial stenosis -rain MRI no acute cerebral infarction, no acute subacute hemorrhage, Multiple foci of increased T2-weighted signal abnormalities within the periventricular white matter, suggesting demyelination. Urine toxicology and ethanol level negative (3) Seizure: Code(s): R56.9 - Unspecified convulsions Status: Acute Assessment and Plan: Patient has a history of post dialysis seizures Appreciate Neurology evaluation recommendation Continue Keppra per NG tube -Keppra gets dialyzed with hemodialysis which could have have caused possible seizures and altered mental status -will recommend taking Keppra after dialysis (4) Pancytopenia: Code(s): D61.818 - Other pancytopenia Status: Acute Assessment and Plan: Patient was in hospital on 05/25/2021 he received 3 units of platelets and 1 unit FFP and vitamin K however it does not appear that he had seen Hematology at that time we, patient does not bleed he has been seen by health program specialist Appreciate Heme-Onc evaluation and recommendations. Pancytopenia thought to be secondary to liver cirrhosis, anemia is most likely secondary to chronic kidney disease. Has ordered Epogen. 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 Continue Renvela Plan DVT prophylaxis: SCDs Stress ulcer prophylaxis: Protonix Nutrition: NPO for now Code Status: Full code Critical Care Time Spent: 33 minutes Due to a high probability of clinically significant, life threatening deterioration, the patient required my highest level of preparedness to intervene emergently and I personally spent this critical care time directly and personally managing the patient. This critical care time included obtaining a history; examining the patient; pulse oximetry; ordering and review of studies; arranging urgent treatment with development of a management plan; evaluation of patient's response to treatment; frequent reassessment; and discussions with other providers. It was exclusive of separately billable procedures and treating other patients and teaching time. Please see Assessment and Plan section and the rest of the note for further information on patient assessment and treatment This dictation may have been done utilizing a voice recognition system. Attempts have been made to correct errors. However, there may be uncorrected grammatical, spelling, and recognitions errors present. Subjective Date/time seen: 08/15/24 08:55 Interval history: 58-year-old male with past medical history of alcoholic cirrhosis, esophageal varices, pancytopenia, seizures, end-stage renal disease on dialysis, presents the hospital with altered mental status. Presented from dialysis center for altered mental status. Patient had dialysis on 08/12/2024 with [id number] mL in fluid removal. Patient was lethargic and not acting normal post dialysis and was brought to the ED. Ammonia levels were 69. Urine tox screen was negative, alcohol level were negative, head CT was negative chest x-ray was negative for acute process. 08/14/2024: Patient was being evaluated in the ICU as an overflow patient, patient was obtunded, unable to answer any questions, barely could open his eyes, was slumped to with his right. Given his low platelet counts I ordered a stat CT scan of the brain which was negative. Repeat ammonia level was 181. NG tube was inserted and patient given lactulose. Patient was made ICU status, discussed with Nephrology, dialysis was started urgently. Patient was pr otecting his airway, adequate O2 sats, normal blood pressures. Has been in sinus bradycardia since admission. 08/15: This morning patient is awake, alert, oriented x3, nonfocal, able to answer questions appropriately and follow commands. States he is probably at baseline. Denies any chest pain, shortness of breath, abdominal pain, nausea, vomiting, dizziness. Patient had hemodialysis done yesterday with 3000 mL in fluid removal. Ammonia levels are down to 37 this morning Review of Systems Review of Systems: All systems reviewed & are unremarkable except as noted in HPI and below Exam Narrative: General: Patient awake, alert, pleasant gentleman in no acute this HEENT: Pupils equal and reactive, sclerae is clear Neck: Supple Respiratory: clear to auscultation bilaterally. Adequate air entry, no wheeze. Cardiovascular: Sinus bradycardia normal S1-S2, 2/6 systolic murmur of aortic stenosis Abdomen: Soft, nontender, nondistended, normoactive bowel sounds Extremities: No cyanosis, clubbing, or edema present. Pulses are palpable 2/2. Neuro: Patient is awake, alert, oriented x3, answers to questions appropriately, follows simple commands in all extremities Skin: Warm, dry, and intact, without rash, erythema, or lesion. Psych: Normal mentation and affect Objective Data Vital Signs Vital Signs: Vital Signs - 24 hr 08/14/24 10:00 08/14/24 10:00 08/14/24 10:22 Temperature 98.9 F Pulse Rate 57 L 57 L 58 L Respiratory Rate 13 16 Blood Pressure 149/63 H 149/63 H 151/63 H Pulse Oximetry 99 99 Oxygen Delivery 08/14/24 10:30 08/14/24 10:45 08/14/24 10:57 Temperature Pulse Rate 58 L 60 59 L Respiratory Rate Blood Pressure 144/64 H 141/66 H Pulse Oximetry Oxygen Delivery 08/14/24 11:00 08/14/24 11:15 08/14/24 11:30 Temperature Pulse Rate 60 58 L 58 L Respiratory Rate Blood Pressure 146/70 H 142/61 H 140/61 Pulse Oximetry Oxygen Delivery 08/14/24 11:45 08/14/24 12:00 08/14/24 12:00 Temperature Pulse Rate 57 L 62 65 Respiratory Rate Blood Pressure 133/62 142/63 H Pulse Oximetry Oxygen Delivery 08/14/24 12:00 08/14/24 12:15 08/14/24 12:30 Temperature 98.6 F Pulse Rate 64 62 64 Respiratory Rate 15 Blood Pressure 136/60 139/63 141/65 H Pulse Oximetry 98 Oxygen Delivery 08/14/24 12:45 08/14/24 13:00 08/14/24 13:15 Temperature Pulse Rate 63 64 61 Respiratory Rate Blood Pressure 136/60 141/66 H 139/61 Pulse Oximetry Oxygen Delivery 08/14/24 13:30 08/14/24 13:45 08/14/24 13:52 Temperature Pulse Rate 66 63 64 Respiratory Rate Blood Pressure 140/62 136/60 139/63 Pulse Oximetry Oxygen Delivery 08/14/24 14:00 08/14/24 14:00 08/14/24 14:00 Temperature 98.7 F Pulse Rate 67 67 66 Respiratory Rate 18 20 Blood Pressure 153/61 H 153/61 H Pulse Oximetry 95 99 Oxygen Delivery 08/14/24 16:00 08/14/24 16:00 08/14/24 16:00 Temperature 98.3 F Pulse Rate 67 67 Respiratory Rate 15 Blood Pressure 159/67 H Pulse Oximetry 99 Oxygen Delivery Room Air 08/14/24 18:00 08/14/24 18:00 08/14/24 20:00 Temperature 98.4 F Pulse Rate 68 68 63 Respiratory Rate 17 18 Blood Pressure 164/69 H 155/68 H Pulse Oximetry 100 100 Oxygen Delivery 08/14/24 20:00 08/14/24 20:20 08/14/24 22:00 Temperature Pulse Rate 65 63 64 Respiratory Rate 18 Blood Pressure Pulse Oximetry 100 Oxygen Delivery Room Air 08/14/24 22:00 08/15/24 00:00 08/15/24 00:18 Temperature Pulse Rate 64 64 64 Respiratory Rate 18 18 Blood Pressure 147/67 H Pulse Oximetry 100 100 Oxygen Delivery Room Air 08/15/24 00:20 08/15/24 02:00 08/15/24 02:00 Temperature 98.4 F Pulse Rate 63 64 62 Respiratory Rate 13 18 Blood Pressure 158/65 H 157/65 H Pulse Oximetry 100 99 Oxygen Delivery 08/15/24 03:55 08/15/24 04:00 08/15/24 04:00 Temperature 98.3 F Pulse Rate 62 60 58 L Respiratory Rate 18 12 Blood Pressure 164/74 H Pulse Oximetry 99 100 Oxygen Delivery Room Air 08/15/24 06:00 08/15/24 06:00 08/15/24 08:00 Temperature 98.8 F Pulse Rate 58 L 58 L 58 L Respiratory Rate 20 14 Blood Pressure 153/69 H 151/67 H Pulse Oximetry 100 99 Oxygen Delivery 08/15/24 08:00 Temperature Pulse Rate 60 Respiratory Rate 12 Blood Pressure Pulse Oximetry 100 Oxygen Delivery Room Air Intake/Output Intake/Output: Intake & Output 08/12/24 08/13/24 08/14/24 08/15/24 23:59 23:59 23:59 23:59 Intake Total 580 1140 400 0 Output Total 0 3000 0 Balance 580 1140 -2600 0 Meds/Results Medications: Active Medications Generic Name Dose Route Start Last Admin Trade Name Freq PRN Reason Stop Dose Admin Epoetin Nasir-epbx 10,000 units 08/15/24 19:05 Epoetin Nasir-Epbx 10,000 Units/Ml Vial IV PUSH 08/15/24 19:06 ONCE ONE Furosemide 20 mg 08/13/24 09:00 08/15/24 08:38 Furosemide 20 Mg Tablet PO 20 mg DAILY DARWIN Administration Albumin Human 50 mls @ 999 mls/hr 08/14/24 06:16 Albutein IVPB 09/13/24 06:15 Q10M PRN HYPOTENSION Lactulose 20 gm 08/14/24 13:00 08/15/24 08:38 Lactulose 20 Gm/30 Ml Udc PO 20 gm TID DARWIN Administration Levetiracetam 750 mg 08/14/24 21:00 08/15/24 08:39 Levetiracetam 250 Mg Tablet PO 750 mg Q12HR DARWIN Administration Melatonin 3 mg 08/13/24 21:00 08/14/24 20:29 Melatonin 3 Mg Tablet PO 3 mg HS DARWIN Administration Pantoprazole Sodium 40 mg 08/13/24 09:00 08/15/24 08:38 Pantoprazole 40 Mg Tablet PO 40 mg DAILY DARWIN Administration Sevelamer Carbonate 1,600 mg 08/13/24 09:00 08/15/24 08:39 Sevelamer Carbonate 800 Mg Tablet PO 1,600 mg TID DARWIN Administration Radiology Results: ITS Impressions Head/Neck CTA 08/12/24 09:20 IMPRESSION: 1. Normal brain. 2. No aneurysm or significant intracranial arterial stenosis. 3. 0% stenosis of the proximal internal carotid arteries relative to normal distal artery lumen diameters (NASCET criteria). Chest X-Ray 08/12/24 09:29 IMPRESSION: 1. No acute cardiopulmonary disease. Brain MRI 08/12/24 21:15 IMPRESSION: No acute cerebral infarction. No acute or subacute hemorrhage. Multiple foci of increased T2-weighted signal abnormalities within the periventricular white matter, suggesting demyelination. Knee X-Ray 08/13/24 11:13 Impression: No acute abnormality. Stable degenerative change and small joint effusion. Head CT 08/14/24 09:09 IMPRESSION: 1. Normal brain. Abdomen X-Ray 08/14/24 09:56 IMPRESSION: 1. Nasogastric tube tip in the stomach. Labs Labs: Laboratory Results - last 24 hr 08/13/24 08/14/24 08/14/24 00:00 08:24 10:51 WBC RBC Hgb Hct MCV MCH MCHC RDW Plt Count MPV Immature Gran % (Auto) Neut % (Auto) Lymph % (Auto) [place] % (Auto) Eos % (Auto) Baso % (Auto) Lymph # (Auto) [place] # (Auto) Eos # (Auto) Baso # (Auto) Abs Immat Gran (auto) Absolute Neuts (auto) Absolute Nucleated RBC Nucleated RBC % Platelet Estimate % Immature Plt Fraction Ovalocytes Schistocytes PT INR APTT D-Dimer Sodium Potassium Chloride Carbon Dioxide Anion Gap BUN Creatinine Estim Creat Clear Calc Estimated GFR Glucose Calcium Phosphorus Magnesium Total Bilirubin AST ALT Alkaline Phosphatase Ammonia Total Protein Albumin Urine Color Cancelled Urine Appearance Cancelled Urine pH Cancelled Ur Specific [place] Cancelled Urine Protein Cancelled Urine Glucose (UA) Cancelled Urine Ketones Cancelled Ur Blood (Man) Cancelled Urine Nitrate Cancelled Urine Bilirubin Cancelled Urine Urobilinogen Cancelled Add Ur Microanalysis Cancelled Leukocyte Esterase Rfl Cancelled Urine RBC Cancelled Urine WBC Cancelled Urine WBC Clumps Cancelled Ur Squamous Epith Cells Cancelled Ur Transition Epith Cell Cancelled Ur Renal Epithelial Cell Cancelled [place] Biurate Crystals Cancelled Calcium Carbonate Cryst Cancelled Calcium Phosphate Cryst Cancelled Calcium Oxalate Crystal Cancelled Leucine Crystals Cancelled Cystine Crystals Cancelled Uric Acid Crystals Cancelled Triple Phos Crystals Cancelled Sulfonamide Crystals Cancelled Cholesterol Crystals Cancelled [place]c Crystals Cancelled Tyrosine Crystals Cancelled Hippuric Acid Crystals Cancelled Bilirubin Crystals Cancelled Other Crystals Cancelled Amorphous Sediment Cancelled Other Sediment Cancelled Urine Bacteria Cancelled Urine Casts Cancelled Cellular Casts Cancelled Epithelial Casts Cancelled Fatty Casts Cancelled Hyaline Casts Cancelled Granular Casts Cancelled Waxy Casts Cancelled Broad Casts Cancelled RBC Casts Cancelled WBC Casts Cancelled Urine Starch Cancelled Urine Mucus Cancelled Urine Trichomonas Cancelled Urine Yeast (Budding) Cancelled Ur Oval Fat Bodies Cancelled Nasal MRSA (PCR) Not detected Sperm Presence Cancelled Hep Bs Antigen Negative Hep Bs Antibody Positive 08/14/24 08/14/24 08/15/24 14:21 20:49 05:12 WBC 2.3 L RBC 2.42 L Hgb 8.1 L Hct 25.1 L MCV 103.7 H MCH 33.5 MCHC 32.3 RDW 15.6 H Plt Count 21 L* MPV 10.9 H Immature Gran % (Auto) 0.9 H Neut % (Auto) 64.6 Lymph % (Auto) 22.6 [place] % (Auto) 7.5 Eos % (Auto) 3.5 Baso % (Auto) 0.9 Lymph # (Auto) 0.51 L [place] # (Auto) 0.2 Eos # (Auto) 0.1 Baso # (Auto) 0.0 Abs Immat Gran (auto) 0.02 Absolute Neuts (auto) 1.5 Absolute Nucleated RBC 0.000 Nucleated RBC % 0.0 Platelet Estimate Decreased % Immature Plt Fraction 3.0 Ovalocytes 1+ Schistocytes None seen PT 19.1 H INR 1.5 APTT 38.1 H D-Dimer 1.74 H Sodium 138 Potassium 3.9 Chloride 102 Carbon Dioxide 22 Anion Gap 14 H BUN 32 H D Creatinine 5.58 H Estim Creat Clear Calc 14 Estimated GFR 11 L Glucose 102 Calcium 9.5 Phosphorus 3.8 Magnesium 2.1 Total Bilirubin 1.3 AST 24 ALT 13 Alkaline Phosphatase 126 Ammonia 58 H 34 H 37 H Total Protein 6.0 L Albumin 3.1 L Urine Color Urine Appearance Urine pH Ur Specific [place] Urine Protein Urine Glucose (UA) Urine Ketones Ur Blood (Man) Urine Nitrate Urine Bilirubin Urine Urobilinogen Add Ur Microanalysis Leukocyte Esterase Rfl Urine RBC Urine WBC Urine WBC Clumps Ur Squamous Epith Cells Ur Transition Epith Cell Ur Renal Epithelial Cell [place] Biurate Crystals Calcium Carbonate Cryst Calcium Phosphate Cryst Calcium Oxalate Crystal Leucine Crystals Cystine Crystals Uric Acid Crystals Triple Phos Crystals Sulfonamide Crystals Cholesterol Crystals Talc Crystals Tyrosine Crystals Hippuric Acid Crystals Bilirubin Crystals Other Crystals Amorphous Sediment Other Sediment Urine Bacteria Urine Casts Cellular Casts Epithelial Casts Fatty Casts Hyaline Casts Granular Casts Waxy Casts Broad Casts RBC Casts WBC Casts Urine Starch Urine Mucus Urine Trichomonas Urine Yeast (Budding) Ur Oval Fat Bodies Nasal MRSA (PCR) Sperm Presence Hep Bs Antigen Hep Bs Antibody Quality VTE Prophylaxis VTE prophylaxis: mechanical ordered
--- NOTE | 2024-08-15 11:12 | PCFNICU ---
ICU Rounding Note: Pt current nutrition is Renal Dialysis. Last recorded weight is 76.6 kg, down from 80.6 kg on admit. Bowel Motility: No BM reported. Labs Reviewed: Cr 5.58, BUN 32, GFR 11, Alb 3.1 Meds Noted:Lactulose, Protonix, Lasix, Keppra Skin: WNL Additional Notes: Patient is alert. Plans to advance diet today and remove NGT. Agree with diet orders Following daily in ICU rounds.
--- NOTE | 2024-08-15 11:38 | P.PNNP_ITS ---
Progress Note: A&P Assessment and Plan (1) End stage renal disease: Code(s): N18.6 - End stage renal disease Status: Chronic Assessment and Plan: * HD today * urea levels improved dramatically with dialysis yesterday. * There is some evidence that urea levels are cleared at a rate of about 250 mils per minute during treatment with dialysis, even with that big volume of distribution. * will dialyze again today with a larger dialyzer and higher dialysate flow. (2) Encephalopathy: Code(s): G93.40 - Encephalopathy, unspecified Status: Acute Assessment and Plan: * presumably hepatic encephalopathy given marked rise in ammonia level * NG tube in place for medications including lactulose * Improved * he has not used his lactulose consistently in the past. I asked him today and he said pretty much twice a day . He admitted that it would be easier t o take if he had bottles at work as well as at home. He will work on this. (3) AMS (altered mental status): Code(s): R41.82 - Altered mental status, unspecified Status: Acute Assessment and Plan: * clinical improvement noted on 08/13 * Improved today as well. 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 * anemia further complicated by ESRD * Hem/Onc recommendations noted Discussed case with Dr. Reid. Subjective Date/time seen: 08/15/24 11:38 Interval history: patient is awake and feeling much better. to get HD today Exam Narrative: General: WD/WN male in NAD - obtunded Heart: normal S1 and S2; no rub Lungs: clear bilateral Abdomen: soft, nontender, nondistended, positive bowel sounds Extremities: no cyanosis or clubbing; no edema Skin: No rash Objective Data Vital Signs Vital Signs: Vital Signs - 24 hr 08/14/24 11:45 08/14/24 12:00 08/14/24 12:00 Temperature Pulse Rate 57 L 62 65 Respiratory Rate Blood Pressure 133/62 142/63 H Pulse Oximetry Oxygen Delivery 08/14/24 12:00 08/14/24 12:15 08/14/24 12:30 Temperature 98.6 F Pulse Rate 64 62 64 Respiratory Rate 15 Blood Pressure 136/60 139/63 141/65 H Pulse Oximetry 98 Oxygen Delivery 08/14/24 12:45 08/14/24 13:00 08/14/24 13:15 Temperature Pulse Rate 63 64 61 Respiratory Rate Blood Pressure 136/60 141/66 H 139/61 Pulse Oximetry Oxygen Delivery 08/14/24 13:30 08/14/24 13:45 08/14/24 13:52 Temperature Pulse Rate 66 63 64 Respiratory Rate Blood Pressure 140/62 136/60 139/63 Pulse Oximetry Oxygen Delivery 08/14/24 14:00 08/14/24 14:00 08/14/24 14:00 Temperature 98.7 F Pulse Rate 67 67 66 Respiratory Rate 18 20 Blood Pressure 153/61 H 153/61 H Pulse Oximetry 95 99 Oxygen Delivery 08/14/24 16:00 08/14/24 16:00 08/14/24 16:00 Temperature 98.3 F Pulse Rate 67 67 Respiratory Rate 15 Blood Pressure 159/67 H Pulse Oximetry 99 Oxygen Delivery Room Air 08/14/24 18:00 08/14/24 18:00 08/14/24 20:00 Temperature 98.4 F Pulse Rate 68 68 63 Respiratory Rate 17 18 Blood Pressure 164/69 H 155/68 H Pulse Oximetry 100 100 Oxygen Delivery 08/14/24 20:00 08/14/24 20:20 08/14/24 22:00 Temperature Pulse Rate 65 63 64 Respiratory Rate 18 Blood Pressure Pulse Oximetry 100 Oxygen Delivery Room Air 08/14/24 22:00 08/15/24 00:00 08/15/24 00:18 Temperature Pulse Rate 64 64 64 Respiratory Rate 18 18 Blood Pressure 147/67 H Pulse Oximetry 100 100 Oxygen Delivery Room Air 08/15/24 00:20 08/15/24 02:00 08/15/24 02:00 Temperature 98.4 F Pulse Rate 63 64 62 Respiratory Rate 13 18 Blood Pressure 158/65 H 157/65 H Pulse Oximetry 100 99 Oxygen Delivery 08/15/24 03:55 08/15/24 04:00 08/15/24 04:00 Temperature 98.3 F Pulse Rate 62 60 58 L Respiratory Rate 18 12 Blood Pressure 164/74 H Pulse Oximetry 99 100 Oxygen Delivery Room Air 08/15/24 06:00 08/15/24 06:00 08/15/24 08:00 Temperature 98.8 F Pulse Rate 58 L 58 L 58 L Respiratory Rate 20 14 Blood Pressure 153/69 H 151/67 H Pulse Oximetry 100 99 Oxygen Delivery 08/15/24 08:00 08/15/24 08:00 08/15/24 10:00 Temperature Pulse Rate 60 60 57 L Respiratory Rate 12 17 Blood Pressure 147/65 H Pulse Oximetry 100 100 Oxygen Delivery Room Air 08/15/24 10:00 08/15/24 11:25 Temperature Pulse Rate 58 L 59 L Respiratory Rate 16 Blood Pressure Pulse Oximetry 98 Oxygen Delivery Room Air Intake/Output Intake/Output: Intake & Output 08/12/24 08/13/24 08/14/24 08/15/24 23:59 23:59 23:59 23:59 Intake Total 580 1140 400 0 Output Total 0 3000 0 Balance 580 1140 -2600 0 Meds/Results Medications: Active Medications Generic Name Dose Route Start Last Admin Trade Name Freq PRN Reason Stop Dose Admin Epoetin Nasir-epbx 10,000 units 08/15/24 19:05 Epoetin Nasir-Epbx 10,000 Units/Ml Vial IV PUSH 08/15/24 19:06 ONCE ONE Furosemide 20 mg 08/13/24 09:00 08/15/24 08:38 Furosemide 20 Mg Tablet PO 20 mg DAILY DARWIN Administration Albumin Human 50 mls @ 999 mls/hr 08/14/24 06:16 Albutein IVPB 09/13/24 06:15 Q10M PRN HYPOTENSION Lactulose 20 gm 08/14/24 13:00 08/15/24 08:38 Lactulose 20 Gm/30 Ml Udc PO 20 gm TID DARWIN Administration Levetiracetam 750 mg 08/14/24 21:00 08/15/24 08:39 Levetiracetam 250 Mg Tablet PO 750 mg Q12HR DARWIN Administration Melatonin 3 mg 08/13/24 21:00 08/14/24 20:29 Melatonin 3 Mg Tablet PO 3 mg HS DARWIN Administration Pantoprazole Sodium 40 mg 08/13/24 09:00 08/15/24 08:38 Pantoprazole 40 Mg Tablet PO 40 mg DAILY DARWIN Administration Sevelamer Carbonate 1,600 mg 08/13/24 09:00 08/15/24 08:39 Sevelamer Carbonate 800 Mg Tablet PO 1,600 mg TID DARWIN Administration Radiology Results: ITS Impressions Head/Neck CTA 08/12/24 09:20 IMPRESSION: 1. Normal brain. 2. No aneurysm or significant intracranial arterial stenosis. 3. 0% stenosis of the proximal internal carotid arteries relative to normal distal artery lumen diameters (NASCET criteria). Chest X-Ray 08/12/24 09:29 IMPRESSION: 1. No acute cardiopulmonary disease. Brain MRI 08/12/24 21:15 IMPRESSION: No acute cerebral infarction. No acute or subacute hemorrhage. Multiple foci of increased T2-weighted signal abnormalities within the periventricular white matter, suggesting demyelination. Knee X-Ray 08/13/24 11:13 Impression: No acute abnormality. Stable degenerative change and small joint effusion. Head CT 08/14/24 09:09 IMPRESSION: 1. Normal brain. Abdomen X-Ray 08/14/24 09:56 IMPRESSION: 1. Nasogastric tube tip in the stomach. Labs Labs: Laboratory Results - last 24 hr 08/13/24 08/14/24 08/14/24 00:00 10:51 14:21 WBC RBC Hgb Hct MCV MCH MCHC RDW Plt Count MPV Immature Gran % (Auto) Neut % (Auto) Lymph % (Auto) [place] % (Auto) Eos % (Auto) Baso % (Auto) Lymph # (Auto) [place] # (Auto) Eos # (Auto) Baso # (Auto) Abs Immat Gran (auto) Absolute Neuts (auto) Absolute Nucleated RBC Nucleated RBC % Platelet Estimate % Immature Plt Fraction Ovalocytes Schistocytes PT INR APTT D-Dimer Sodium Potassium Chloride Carbon Dioxide Anion Gap BUN Creatinine Estim Creat Clear Calc Estimated GFR Glucose Calcium Phosphorus Magnesium Total Bilirubin AST ALT Alkaline Phosphatase Ammonia 58 H Total Protein Albumin Urine Color Cancelled Urine Appearance Cancelled Urine pH Cancelled Ur Specific [place] Cancelled Urine Protein Cancelled Urine Glucose (UA) Cancelled Urine Ketones Cancelled Ur Blood (Man) Cancelled Urine Nitrate Cancelled Urine Bilirubin Cancelled Urine Urobilinogen Cancelled Add Ur Microanalysis Cancelled Leukocyte Esterase Rfl Cancelled Urine RBC Cancelled Urine WBC Cancelled Urine WBC Clumps Cancelled Ur Squamous Epith Cells Cancelled Ur Transition Epith Cell Cancelled Ur Renal Epithelial Cell Cancelled [place] Biurate Crystals Cancelled Calcium Carbonate Cryst Cancelled Calcium Phosphate Cryst Cancelled Calcium Oxalate Crystal Cancelled Leucine Crystals Cancelled Cystine Crystals Cancelled Uric Acid Crystals Cancelled Triple Phos Crystals Cancelled Sulfonamide Crystals Cancelled Cholesterol Crystals Cancelled Talc Crystals Cancelled Tyrosine Crystals Cancelled Hippuric Acid Crystals Cancelled Bilirubin Crystals Cancelled Other Crystals Cancelled Amorphous Sediment Cancelled Other Sediment Cancelled Urine Bacteria Cancelled Urine Casts Cancelled Cellular Casts Cancelled Epithelial Casts Cancelled Fatty Casts Cancelled Hyaline Casts Cancelled Granular Casts Cancelled Waxy Casts Cancelled Broad Casts Cancelled RBC Casts Cancelled WBC Casts Cancelled Urine Starch Cancelled Urine Mucus Cancelled Urine Trichomonas Cancelled Urine Yeast (Budding) Cancelled Ur Oval Fat Bodies Cancelled Nasal MRSA (PCR) Not detected Sperm Presence Cancelled 08/14/24 08/15/24 20:49 05:12 WBC 2.3 L RBC 2.42 L Hgb 8.1 L Hct 25.1 L MCV 103.7 H MCH 33.5 MCHC 32.3 RDW 15.6 H Plt Count 21 L* MPV 10.9 H Immature Gran % (Auto) 0.9 H Neut % (Auto) 64.6 Lymph % (Auto) 22.6 [place] % (Auto) 7.5 Eos % (Auto) 3.5 Baso % (Auto) 0.9 Lymph # (Auto) 0.51 L [place] # (Auto) 0.2 Eos # (Auto) 0.1 Baso # (Auto) 0.0 Abs Immat Gran (auto) 0.02 Absolute Neuts (auto) 1.5 Absolute Nucleated RBC 0.000 Nucleated RBC % 0.0 Platelet Estimate Decreased % Immature Plt Fraction 3.0 Ovalocytes 1+ Schistocytes None seen PT 19.1 H INR 1.5 APTT 38.1 H D-Dimer 1.74 H Sodium 138 Potassium 3.9 Chloride 102 Carbon Dioxide 22 Anion Gap 14 H BUN 32 H D Creatinine 5.58 H Estim Creat Clear Calc 14 Estimated GFR 11 L Glucose 102 Calcium 9.5 Phosphorus 3.8 Magnesium 2.1 Total Bilirubin 1.3 AST 24 ALT 13 Alkaline Phosphatase 126 Ammonia 34 H 37 H Total Protein 6.0 L Albumin 3.1 L Urine Color Urine Appearance Urine pH Ur Specific [place] Urine Protein Urine Glucose (UA) Urine Ketones Ur Blood (Man) Urine Nitrate Urine Bilirubin Urine Urobilinogen Add Ur Microanalysis Leukocyte Esterase Rfl Urine RBC Urine WBC Urine WBC Clumps Ur Squamous Epith Cells Ur Transition Epith Cell Ur Renal Epithelial Cell Telly Biurate Crystals Calcium Carbonate Cryst Calcium Phosphate Cryst Calcium Oxalate Crystal Leucine Crystals Cystine Crystals Uric Acid Crystals Triple Phos Crystals Sulfonamide Crystals Cholesterol Crystals Talc Crystals Tyrosine Crystals Hippuric Acid Crystals Bilirubin Crystals Other Crystals Amorphous Sediment Other Sediment Urine Bacteria Urine Casts Cellular Casts Epithelial Casts Fatty Casts Hyaline Casts Granular Casts Waxy Casts Broad Casts RBC Casts WBC Casts Urine Starch Urine Mucus Urine Trichomonas Urine Yeast (Budding) Ur Oval Fat Bodies Nasal MRSA (PCR) Sperm Presence
[2024-08-15 12:13] LABS: Ammonia 56 umol/L (9-30)
--- NOTE | 2024-08-15 13:06 | PCPTNOTE ---
Attempted to see patient for PT, however patient was eating lunch.
--- NOTE | 2024-08-15 13:50 | PCPTNOTE ---
Attempted to see patient for PT, however patient was getting set up for dialysis in room and unable to be seen for PT.
[2024-08-15] MEDS: EPOETIN ALFA-EPBX 10,000 UNITS/ML VIAL 10000 UNITS IV PUSH (15:40)
[2024-08-15] MEDS: MELATONIN 3 MG TABLET PO (22:20)
[2024-08-16] VITALS: BP 132/60; PULSE 63; RESP 17; TEMP 37.1; O2SAT 100
[2024-08-16 04:31] VITALS: BP 146/64; PULSE 60; RESP 18; TEMP 36.9; O2SAT 98
[2024-08-16 06:41] LABS: Basophils Percent Auto 0.5 % (0.2-1.2); Eosinophils Absolute Auto 0.1 K/mm3 (0-0.3); Eosinophils Percent Auto 2.9 % (0-4.4); Hematocrit 22.9 % (42.0-52.0); Hemoglobin 7.6 g/dL (14.0-18.0); Immature Granulocyte Absolute 0.01 K/mm3 (0.00-0.031); Immature Granulocyte Percent A 0.5 % (0-0.5); Immature Platelet Fraction Pct 3.2 % (0.9-11.2); Lymphocytes Absolute Auto 0.57 K/mm3 (0.9-3.2); Lymphocytes Percent Auto 27.7 % (18.3-44.2); Mean Corpuscular HGB Conc 33.2 g/dl (32-36); Mean Corpuscular Hemoglobin 33.9 pg (26-34); Mean Corpuscular Volume 102.2 fl (80-100); Monocytes Absolute Auto 0.3 K/mm3 (0.1-0.6); Monocytes Percent Auto 13.6 % (2.6-8.5); Neutrophils Absolute Auto 1.1 K/mm3 (1.3-6.7); Neutrophils Percent Auto 54.8 % (45.5-73.1); Red Blood Count 2.24 M/mm3 (4.6-6.20); Red Cell Distribution Width 15.7 % (11.5-14.5); White Blood Count 2.1 K/mm3 (4.5-10.0)
[2024-08-16 06:53] LABS: Ammonia 79 umol/L (9-30)
[2024-08-16 06:55] LABS: Alanine Aminotransferase 13 U/L (6-50); Alkaline Phosphatase 136 U/L (38-126); Anion Gap 6 mmol/L (4-12); Aspartate Amino Transferase 22 U/L (17-59); Bilirubin,Total 1.1 mg/dL (0.2-1.3); Blood Urea Nitrogen 21 mg/dL (9-20); Carbon Dioxide 31 mmol/L (22-30); Chloride 99 mmol/L (98-107); Estimated CRCL calculation 19 ml/min; Estimated Glomerular Filt Rate 15; Glucose 103 mg/dL (65-110); Magnesium 1.9 mg/dL (1.6-2.3); Phosphorus 2.5 mg/dL (2.5-4.5); Potassium 3.9 mmol/L (3.4-5.0); Sodium 136 mmol/L (137-145)
[2024-08-16 07:24] LABS: Platelet Count Result 23 k/mm3 (150-375)
[2024-08-16] MEDS: LACTULOSE 20 GM/30 ML UDC PO ×3 (09:36→17:35)
[2024-08-16] MEDS: levETIRAcetam 250 MG TABLET 750 MG PO ×2 (09:36→21:12)
[2024-08-16] MEDS: PANTOPRAZOLE 40 MG TABLET PO (09:37)
[2024-08-16] MEDS: FUROSEMIDE 20 MG TABLET PO (09:37)
[2024-08-16] MEDS: SEVELAMER CARBONATE 800 MG TABLET 1600 MG PO ×3 (09:37→17:34)
--- NOTE | 2024-08-16 10:36 | P.PNNP_ITS ---
Progress Note: A&P Assessment and Plan (1) End stage renal disease: Code(s): N18.6 - End stage renal disease Status: Chronic Assessment and Plan: * HD Sunday * No signs of uremia. * Volume status looks okay * potassium bicarbonate and BUN are looking good. (2) Encephalopathy: Code(s): G93.40 - Encephalopathy, unspecified Status: Acute Assessment and Plan: * presumably hepatic encephalopathy given marked rise in ammonia level * NG tube in place for medications including lactulose * Improved * The patient is getting lactulose 3 times a day now. * Hopefully ammonia levels will drop as time goes on with the lactulose treatment (3) AMS (altered mental status): Code(s): R41.82 - Altered mental status, unspecified Status: Acute Assessment and Plan: * clinical improvement noted on 08/13 * not quite as good as he usually is. (4) Seizure: Code(s): R56.9 - Unspecified convulsions Status: Acute Assessment and Plan: * is this what occurred prior to admission(?) * Neurology recommendations noted * on [facility] (5) Anemia: Code(s): D64.9 - Anemia, unspecified Status: Chronic Assessment and Plan: * due to ESRD with contributions from liver disease * Epogen with HD * Hemoglobin 7.6 today. * Checking a reticulocyte count. 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 * anemia further complicated by ESRD * Hem/Onc recommendations noted Subjective Date/time seen: 08/16/24 10:36 Interval history: Awake and alert. May be a little bit of a slurred speech. Friend, Ministerio, is in the room. Exam Narrative: General: WD/WN male in NAD - obtunded Heart: normal S1 and S2; no rub or gallop Lungs: clear bilaterally Abdomen: soft, nontender, nondistended, positive bowel sounds Extremities: no cyanosis or clubbing; no edema Skin: No rash or subcu nodules Objective Data Vital Signs Vital Signs: Vital Signs - 24 hr 08/15/24 11:25 08/15/24 12:00 08/15/24 12:00 Temperature 97.9 F Pulse Rate 59 L 60 60 Respiratory Rate 16 13 Blood Pressure 146/69 H Pulse Oximetry 98 100 Oxygen Delivery Room Air 08/15/24 14:00 08/15/24 14:00 08/15/24 15:00 Temperature 98.2 F Pulse Rate 61 61 59 L Respiratory Rate 18 13 Blood Pressure 133/86 139/65 Pulse Oximetry 100 99 Oxygen Delivery 08/15/24 15:07 08/15/24 15:15 08/15/24 15:20 Temperature Pulse Rate 59 L 59 L 59 L Respiratory Rate 15 Blood Pressure 143/66 H 144/67 H Pulse Oximetry 100 Oxygen Delivery Room Air 08/15/24 15:30 08/15/24 15:45 08/15/24 16:00 Temperature Pulse Rate 58 L 58 L 61 Respiratory Rate Blood Pressure 132/63 130/63 130/64 Pulse Oximetry Oxygen Delivery 08/15/24 16:00 08/15/24 16:00 08/15/24 16:15 Temperature 97.6 F Pulse Rate 58 L 58 L 59 L Respiratory Rate 16 Blood Pressure 130/64 136/63 Pulse Oximetry 100 Oxygen Delivery 08/15/24 16:30 08/15/24 16:45 08/15/24 17:00 Temperature Pulse Rate 60 60 59 L Respiratory Rate Blood Pressure 135/63 134/63 132/62 Pulse Oximetry Oxygen Delivery 08/15/24 17:15 08/15/24 17:30 08/15/24 17:45 Temperature Pulse Rate 59 L 58 L 63 Respiratory Rate Blood Pressure 132/65 138/64 134/60 Pulse Oximetry Oxygen Delivery 08/15/24 18:00 08/15/24 18:00 08/15/24 18:00 Temperature Pulse Rate 59 L 58 L 59 L Respiratory Rate 19 Blood Pressure 138/62 138/62 Pulse Oximetry 100 Oxygen Delivery 08/15/24 18:15 08/15/24 18:30 08/15/24 18:40 Temperature Pulse Rate 63 59 L 59 L Respiratory Rate Blood Pressure 136/67 131/65 141/64 H Pulse Oximetry Oxygen Delivery 08/15/24 19:12 08/15/24 20:00 08/16/24 00:00 Temperature 98.6 F 98.8 F Pulse Rate 58 L 58 L 63 Respiratory Rate 18 18 17 Blood Pressure 134/63 132/60 Pulse Oximetry 99 99 100 Oxygen Delivery Room Air 08/16/24 04:31 Temperature 98.5 F Pulse Rate 60 Respiratory Rate 18 Blood Pressure 146/64 H Pulse Oximetry 98 Oxygen Delivery Intake/Output Intake/Output: Intake & Output 08/13/24 08/14/24 08/15/24 08/16/24 23:59 23:59 23:59 23:59 Intake Total 1140 400 500 550 Output Total 0 3000 2506 Balance 1140 -2600 -2006 550 Meds/Results Medications: Active Medications Generic Name Dose Route Start Last Admin Trade Name Alekq PRN Reason Stop Dose Admin Furosemide 20 mg 08/13/24 09:00 08/16/24 09:37 Furosemide 20 Mg Tablet PO 20 mg DAILY DARWIN Administration Albumin Human 50 mls @ 999 mls/hr 08/14/24 06:16 Albutein IVPB 09/13/24 06:15 Q10M PRN HYPOTENSION Lactulose 20 gm 08/14/24 13:00 08/16/24 09:36 Lactulose 20 Gm/30 Ml Udc PO 20 gm TID DARWIN Administration Levetiracetam 750 mg 08/14/24 21:00 08/16/24 09:36 Levetiracetam 250 Mg Tablet PO 750 mg Q12HR DARWIN Administration Melatonin 3 mg 08/13/24 21:00 08/15/24 22:20 Melatonin 3 Mg Tablet PO 3 mg HS DARWIN Administration Pantoprazole Sodium 40 mg 08/13/24 09:00 08/16/24 09:37 Pantoprazole 40 Mg Tablet PO 40 mg DAILY DARWIN Administration Sevelamer Carbonate 1,600 mg 08/13/24 09:00 08/16/24 09:37 Sevelamer Carbonate 800 Mg Tablet PO 1,600 mg TID DARWIN Administration Radiology Results: ITS Impressions Head/Neck CTA 02/11/25 09:20 IMPRESSION: 1. Normal brain. 2. No aneurysm or significant intracranial arterial stenosis. 3. 0% stenosis of the proximal internal carotid arteries relative to normal distal artery lumen diameters (NASCET criteria). Chest X-Ray 08/12/24 09:29 IMPRESSION: 1. No acute cardiopulmonary disease. Brain MRI 08/12/24 21:15 IMPRESSION: No acute cerebral infarction. No acute or subacute hemorrhage. Multiple foci of increased T2-weighted signal abnormalities within the periventricular white matter, suggesting demyelination. Knee X-Ray 08/13/24 11:13 Impression: No acute abnormality. Stable degenerative change and small joint effusion. Head CT 08/14/24 09:09 IMPRESSION: 1. Normal brain. Abdomen X-Ray 08/14/24 09:56 IMPRESSION: 1. Nasogastric tube tip in the stomach. Labs Labs: Laboratory Results - last 24 hr 08/15/24 08/16/24 11:51 06:31 WBC 2.1 L RBC 2.24 L Hgb 7.6 L Hct 22.9 L MCV 102.2 H MCH 33.9 MCHC 33.2 RDW 15.7 H Plt Count 23 L* MPV 10.0 Immature Gran % (Auto) 0.5 Neut % (Auto) 54.8 Lymph % (Auto) 27.7 [place] % (Auto) 13.6 H Eos % (Auto) 2.9 Baso % (Auto) 0.5 Lymph # (Auto) 0.57 L [place] # (Auto) 0.3 Eos # (Auto) 0.1 Baso # (Auto) 0.0 Abs Immat Gran (auto) 0.01 Absolute Neuts (auto) 1.1 L Absolute Nucleated RBC 0.000 Nucleated RBC % 0.0 % Immature Plt Fraction 3.2 Sodium 136 L Potassium 3.9 Chloride 99 Carbon Dioxide 31 H Anion Gap 6 BUN 21 H D Creatinine 4.08 H Estim Creat Clear Calc 19 Estimated GFR 15 L Glucose 103 Calcium 9.0 Phosphorus 2.5 Magnesium 1.9 Total Bilirubin 1.1 AST 22 ALT 13 Alkaline Phosphatase 136 H Ammonia 56 H 79 H Total Protein 6.0 L Albumin 3.0 L
--- NOTE | 2024-08-16 11:57 | P.PNIM_ITS ---
Progress Note: A&P Assessment and Plan (1) Encephalopathy: Code(s): G93.40 - Encephalopathy, unspecified Status: Acute Assessment and Plan: RESOLVED 06/13: Patient was found to be obtunded, protecting airway, 06/13: stat CT scan of the brain was negative -ammonia levels were elevated to 181 -encephalopathy is likely related to hepatic encephalopathy secondary to hyperammonemia -NG tube was inserted, patient was given his scheduled lactulose -discuss with Nephrology, patient will be dialyzed JOSUÉ -continue to monitor ammonia level q.6 hours 06/14: Patient is awake, alert, oriented x3. Ammonia levels are down to 37 this morning -will continue lactulose t.i.d. 08/16: Patient is encephalopathy has improved a lot. Plan is to continue current treatment. (2) Acute alteration in mental status: Code(s): R41.82 - Altered mental status, unspecified Status: Acute Assessment and Plan: 06/11: Patient admitted with altered mental status post dialysis. -06/11: And neck CTA was normal, no aneurysm or significant intracranial arterial stenosis -rain MRI no acute cerebral infarction, no acute subacute hemorrhage, Multiple foci of increased T2-weighted signal abnormalities within the periventricular white matter, suggesting demyelination. Urine toxicology and ethanol level negative 08/16 Almost resolved. (3) Seizure: Code(s): R56.9 - Unspecified convulsions Status: Acute Assessment and Plan: Patient has a history of post dialysis seizures Appreciate Neurology evaluation recommendation Continue Bernice s (4) Pancytopenia: Code(s): D61.818 - Other pancytopenia Status: Acute Assessment and Plan: Patient was in hospital on 05/25/2021 he received 3 units of platelets and 1 unit FFP and vitamin K however it does not appear that he had seen Hematology at that time we, patient does not bleed he has been seen by outside sales professional Appreciate Heme-Onc evaluation and recommendations. Pancytopenia thought to be secondary to liver cirrhosis, anemia is most likely secondary to chronic kidney disease. Has ordered Epogen. 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 (6) ESRD needing dialysis: Code(s): N18.6 - End stage renal disease; Z99.2 - Dependence on renal dialysis Status: Chronic Assessment and Plan: AV fistula Nephrology following, dialysis per weaver tire cord Lasix b.i.d. Continue Renvela Plan DVT prophylaxis: SCDs Stress ulcer prophylaxis: Protonix Code Status: Full code Subjective Date/time seen: 08/16/24 11:57 Interval history: Patient was seen during the morning rounds today. Patient mental status change has significantly improved. Patient denies any shortness of breath or chest pain at present time. No abdominal pain, nausea, no vomiting. Mood stable. Review of Systems Review of Systems: 12 systems were reviewed and are negativ e except for as per HPI. All systems reviewed & are unremarkable except as noted in HPI and below ROS unobtainable: Yes unobtainable due to medical condition and unobtainable due to mental status Exam Narrative: General: Patient awake, alert, pleasant gentleman in no acute this HEENT: Pupils equal and reactive, sclerae is clear Neck: Supple Respiratory: clear to auscultation bilaterally. Adequate air entry, no wheeze. Cardiovascular: Sinus bradycardia normal S1-S2, 2/6 systolic murmur of aortic stenosis Abdomen: Soft, nontender, nondistended, normoactive bowel sounds Extremities: No cyanosis, clubbing, or edema present. Pulses are palpable 2/2. Neuro: Patient is awake, alert, oriented x3, answers to questions appropriately, follows simple commands in all extremities Skin: Warm, dry, and intact, without rash, erythema, or lesion. Psych: Normal mentation and affect Objective Data Vital Signs Vital Signs: Vital Signs - 24 hr 08/15/24 12:00 08/15/24 12:00 08/15/24 14:00 Temperature 36.6 C Pulse Rate 60 60 61 Respiratory Rate 13 Blood Pressure 146/69 H Pulse Oximetry 100 Oxygen Delivery 08/15/24 14:00 08/15/24 15:00 08/15/24 15:07 Temperature 36.8 C Pulse Rate 61 59 L 59 L Respiratory Rate 18 13 Blood Pressure 133/86 139/65 143/66 H Pulse Oximetry 100 99 Oxygen Delivery 08/15/24 15:15 08/15/24 15:20 08/15/24 15:30 Temperature Pulse Rate 59 L 59 L 58 L Respiratory Rate 15 Blood Pressure 144/67 H 132/63 Pulse Oximetry 100 Oxygen Delivery Room Air 08/15/24 15:45 08/15/24 16:00 08/15/24 16:00 Temperature 36.4 C Pulse Rate 58 L 61 58 L Respiratory Rate 16 Blood Pressure 130/63 130/64 130/64 Pulse Oximetry 100 Oxygen Delivery 08/15/24 16:00 08/15/24 16:15 08/15/24 16:30 Temperature Pulse Rate 58 L 59 L 60 Respiratory Rate Blood Pressure 136/63 135/63 Pulse Oximetry Oxygen Delivery 08/15/24 16:45 08/15/24 17:00 08/15/24 17:15 Temperature Pulse Rate 60 59 L 59 L Respiratory Rate Blood Pressure 134/63 132/62 132/65 Pulse Oximetry Oxygen Delivery 08/15/24 17:30 08/15/24 17:45 08/15/24 18:00 Temperature Pulse Rate 58 L 63 59 L Respiratory Rate Blood Pressure 138/64 134/60 138/62 Pulse Oximetry Oxygen Delivery 08/15/24 18:00 08/15/24 18:00 08/15/24 18:15 Temperature Pulse Rate 58 L 59 L 63 Respiratory Rate 19 Blood Pressure 138/62 136/67 Pulse Oximetry 100 Oxygen Delivery 08/15/24 18:30 08/15/24 18:40 08/15/24 19:12 Temperature 37.0 C Pulse Rate 59 L 59 L 58 L Respiratory Rate 18 Blood Pressure 131/65 141/64 H 134/63 Pulse Oximetry 99 Oxygen Delivery 08/15/24 20:00 08/16/24 00:00 08/16/24 04:31 Temperature 37.1 C 36.9 C Pulse Rate 58 L 63 60 Respiratory Rate 18 17 18 Blood Pressure 132/60 146/64 H Pulse Oximetry 99 100 98 Oxygen Delivery Room Air 08/16/24 09:30 Temperature Pulse Rate Respiratory Rate Blood Pressure Pulse Oximetry Oxygen Delivery Room Air Intake/Output Intake/Output: Intake & Output 08/13/24 08/14/24 08/15/24 08/16/24 23:59 23:59 23:59 23:59 Intake Total 1140 400 500 550 Output Total 0 3000 2506 Balance 1140 2600 -2005 550 Meds/Results Medications: Active Medications Generic Name Dose Route Start Last Admin Trade Name Freq PRN Reason Stop Dose Admin Furosemide 20 mg 08/13/24 09:00 08/16/24 09:37 Furosemide 20 Mg Tablet PO 20 mg DAILY DARWIN Administration Albumin Human 50 mls @ 999 mls/hr 08/14/24 06:16 Albutein IVPB 09/13/24 06:15 Q10M PRN HYPOTENSION Lactulose 20 gm 08/14/24 13:00 08/16/24 09:36 Lactulose 20 Gm/30 Ml Udc PO 20 gm TID DARWIN Administration Levetiracetam 750 mg 08/14/24 21:00 08/16/24 09:36 Levetiracetam 250 Mg Tablet PO 750 mg Q12HR DARWIN Administration Melatonin 3 mg 08/13/24 21:00 08/15/24 22:20 Melatonin 3 Mg Tablet PO 3 mg HS DARWIN Administration Pantoprazole Sodium 40 mg 08/13/24 09:00 08/16/24 09:37 Pantoprazole 40 Mg Tablet PO 40 mg DAILY DARWIN Administration Sevelamer Carbonate 1,600 mg 08/13/24 09:00 08/16/24 09:37 Sevelamer Carbonate 800 Mg Tablet PO 1,600 mg TID DARWIN Administration Radiology Results: ITS Impressions Head/Neck CTA 08/12/24 09:20 IMPRESSION: 1. Normal brain. 2. No aneurysm or significant intracranial arterial stenosis. 3. 0% stenosis of the proximal internal carotid arteries relative to normal distal artery lumen diameters (NASCET criteria). Chest X-Ray 08/12/24 09:29 IMPRESSION: 1. No acute cardiopulmonary disease. Brain MRI 08/12/24 21:15 IMPRESSION: No acute cerebral infarction. No acute or subacute hemorrhage. Multiple foci of increased T2-weighted signal abnormalities within the periventricular white matter, suggesting demyelination. Knee X-Ray 08/13/24 11:13 Impression: No acute abnormality. Stable degenerative change and small joint effusion. Head CT 08/14/24 09:09 IMPRESSION: 1. Normal brain. Abdomen X-Ray 08/14/24 09:56 IMPRESSION: 1. Nasogastric tube tip in the stomach. Labs Labs: Laboratory Results - last 24 hr 08/15/24 08/16/24 11:51 06:31 WBC 2.1 L RBC 2.24 L Hgb 7.6 L Hct 22.9 L MCV 102.2 H MCH 33.9 MCHC 33.2 RDW 15.7 H Plt Count 23 L* MPV 10.0 Immature Gran % (Auto) 0.5 Neut % (Auto) 54.8 Lymph % (Auto) 27.7 Centre % (Auto) 13.6 H Eos % (Auto) 2.9 Baso % (Auto) 0.5 Lymph # (Auto) 0.57 L Centre # (Auto) 0.3 Eos # (Auto) 0.1 Baso # (Auto) 0.0 Abs Immat Gran (auto) 0.01 Absolute Neuts (auto) 1.1 L Absolute Nucleated RBC 0.000 Nucleated RBC % 0.0 % Immature Plt Fraction 3.2 Sodium 136 L Potassium 3.9 Chloride 99 Carbon Dioxide 31 H Anion Gap 6 BUN 21 H D Creatinine 4.08 H Estim Creat Clear Calc 19 Estimated GFR 15 L Glucose 103 Calcium 9.0 Phosphorus 2.5 Magnesium 1.9 Total Bilirubin 1.1 AST 22 ALT 13 Alkaline Phosphatase 136 H Ammonia 56 H 79 H Total Protein 6.0 L Albumin 3.0 L Quality VTE Prophylaxis VTE prophylaxis: mechanical ordered
[2024-08-16 14:00] VITALS: BP 140/60; PULSE 64; RESP 18; TEMP 36.9; O2SAT 97
[2024-08-16 16:00] VITALS: BP 144/64; PULSE 60; RESP 20; TEMP 36.8; O2SAT 98
[2024-08-16 20:00] VITALS: PULSE 60; RESP 20; O2SAT 98
[2024-08-16] MEDS: MELATONIN 3 MG TABLET PO (21:12)
[2024-08-16 22:41] VITALS: BP 144/68; PULSE 61; RESP 18; TEMP 36.8; O2SAT 100
[2024-08-17 06:00] VITALS: BP 158/72; PULSE 62; RESP 18; TEMP 36.7; O2SAT 99
[2024-08-17 06:44] LABS: Basophils Percent Auto 0.6 % (0.2-1.2); Eosinophils Absolute Auto 0.1 K/mm3 (0-0.3); Eosinophils Percent Auto 5.5 % (0-4.4); Hematocrit 23.7 % (42.0-52.0); Hemoglobin 7.6 g/dL (14.0-18.0); Immature Platelet Fraction Pct 3.4 % (0.9-11.2); Immature Reticulocyte Fraction 25.7 % (3.0-15.9); Lymphocytes Absolute Auto 0.51 K/mm3 (0.9-3.2); Lymphocytes Percent Auto 31.3 % (18.3-44.2); Mean Corpuscular HGB Conc 32.1 g/dl (32-36); Mean Corpuscular Hemoglobin 33.2 pg (26-34); Mean Corpuscular Volume 103.5 fl (80-100); Mean Platelet Volume 10.4 fl (7.4-10.4); Monocytes Absolute Auto 0.2 K/mm3 (0.1-0.6); Monocytes Percent Auto 9.8 % (2.6-8.5); Neutrophils Absolute Auto 0.9 K/mm3 (1.3-6.7); Neutrophils Percent Auto 52.8 % (45.5-73.1); Red Blood Count 2.29 M/mm3 (4.6-6.20); Red Cell Distribution Width 15.5 % (11.5-14.5); Reticulocyte Hemoglobin Conten 33.2 pg (28.2-36.6); Reticulocyte Percent 3.93 % (0.7-4.3); Reticulocytes Absolute 0.09 10^6/uL (0.02-0.10)
[2024-08-17 06:54] LABS: Albumin Level 2.8 g/dL (3.5-5.1); Anion Gap 10 mmol/L (4-12); Blood Urea Nitrogen 35 mg/dL (9-20); Calcium 9.3 mg/dL (8.4-10.2); Carbon Dioxide 26 mmol/L (22-30); Chloride 99 mmol/L (98-107); Estimated CRCL calculation 12 ml/min; Estimated Glomerular Filt Rate 9; Glucose 106 mg/dL (65-110); Phosphorus 3.5 mg/dL (2.5-4.5); Potassium 3.9 mmol/L (3.4-5.0); Sodium 135 mmol/L (137-145)
[2024-08-17 07:17] LABS: Platelet Count Result 23 k/mm3 (150-375); White Blood Count 1.6 K/mm3 (4.5-10.0)
[2024-08-17] MEDS: LACTULOSE 20 GM/30 ML UDC PO ×3 (09:01→17:50)
[2024-08-17] MEDS: levETIRAcetam 250 MG TABLET 750 MG PO ×2 (09:02→21:12)
[2024-08-17] MEDS: PANTOPRAZOLE 40 MG TABLET PO (09:03)
[2024-08-17] MEDS: FUROSEMIDE 20 MG TABLET PO (09:03)
[2024-08-17] MEDS: SEVELAMER CARBONATE 800 MG TABLET 1600 MG PO ×3 (09:03→17:50)
--- NOTE | 2024-08-17 09:33 | P.PNIM_ITS ---
Progress Note: A&P Assessment and Plan (1) Encephalopathy: Code(s): G93.40 - Encephalopathy, unspecified Status: Acute Assessment and Plan: RESOLVED 06/13: Patient was found to be obtunded, protecting airway, 06/13: stat CT scan of the brain was negative -ammonia levels were elevated to 181 -encephalopathy is likely related to hepatic encephalopathy secondary to hyperammonemia -NG tube was inserted, patient was given his scheduled lactulose -discuss with Nephrology, patient will be dialyzed JOSUÉ -continue to monitor ammonia level q.6 hours 06/14: Patient is awake, alert, oriented x3. Ammonia levels are down to 37 this morning -will continue lactulose t.i.d. 08/16: Patient is encephalopathy has improved a lot. Plan is to continue current treatment. 08/17 Patient is more alert and awake. Will continue current treatment, monitor ammonia level. (2) Acute alteration in mental status: Code(s): R41.82 - Altered mental status, unspecified Status: Acute Assessment and Plan: 06/11: Patient admitted with altered mental status post dialysis. -06/11: And neck CTA was normal, no aneurysm or significant intracranial arterial stenosis -rain MRI no acute cerebral infarction, no acute subacute hemorrhage, Multiple foci of increased T2-weighted signal abnormalities within the periventricular white matter, suggesting demyelination. Urine toxicology and ethanol level negative 08/16 Almost resolved. 08/17 Resolved (3) Seizure: Code(s): R56.9 - Unspecified convulsions Status: Acute Assessment and Plan: Patient has a history of post dialysis seizures Appreciate Neurology evaluation recommendation Continue Bernice hannon (4) Pancytopenia: Code(s): D61.818 - Other pancytopenia Status: Acute Assessment and Plan: Patient was in hospital on 05/25/2021 he received 3 units of platelets and 1 unit FFP and vitamin K however it does not appear that he had seen Hematology at that time we, patient does not bleed he has been seen by rough rice grader Appreciate Heme-Onc evaluation and recommendations. Pancytopenia thought to be secondary to liver cirrhosis, anemia is most likely secondary to chronic kidney disease. Has ordered Epogen. 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 (6) ESRD needing dialysis: Code(s): N18.6 - End stage renal disease; Z99.2 - Dependence on renal dialysis Status: Chronic Assessment and Plan: AV fistula Nephrology following, dialysis per crisis worker Lasix b.i.d. Continue Renvela Plan DVT prophylaxis: SCDs Stress ulcer prophylaxis: Protonix Code Status: Full code Subjective Date/time seen: 08/17/24 09:33 Interval history: Patient was seen during the morning rounds today. Patient was admitted for encephalopathy. Patient mental status change has significantly improved. Patient denies any shortness of breath or chest pain at present time. No abdominal pain, nausea, no vomiting. Mood stable. Review of Systems Review of Systems: 12 systems were reviewed and are negativ e except for as per HPI. All systems reviewed & are unremarkable except as noted in HPI and below ROS unobtainable: Yes unobtainable due to medical condition and unobtainable due to mental status Exam Narrative: General: Patient awake, alert, pleasant gentleman in no acute this HEENT: Pupils equal and reactive, sclerae is clear Neck: Supple Respiratory: clear to auscultation bilaterally. Adequate air entry, no wheeze. Cardiovascular: Sinus bradycardia normal S1-S2, 2/6 systolic murmur of aortic stenosis Abdomen: Soft, nontender, nondistended, normoactive bowel sounds Extremities: No cyanosis, clubbing, or edema present. Pulses are palpable 2/2. Neuro: Patient is awake, alert, oriented x3, answers to questions appropriately, follows simple commands in all extremities Skin: Warm, dry, and intact, without rash, erythema, or lesion. Psych: Normal mentation and affect Objective Data Vital Signs Vital Signs: Vital Signs - 24 hr 08/16/24 14:00 08/16/24 16:00 08/16/24 20:00 Temperature 36.9 C 36.8 C Pulse Rate 64 60 60 Respiratory Rate 18 20 20 Blood Pressure 140/60 144/64 H Pulse Oximetry 97 98 98 Oxygen Delivery Room Air 08/16/24 22:41 08/17/24 06:00 Temperature 36.8 C 36.7 C Pulse Rate 61 62 Respiratory Rate 18 18 Blood Pressure 144/68 H 158/72 H Pulse Oximetry 100 99 Oxygen Delivery Intake/Output Intake/Output: Intake & Output 08/14/24 08/15/24 08/16/24 08/17/24 23:59 23:59 23:59 23:59 Intake Total 350 611 7710 240 Output Total 3000 2506 1050 240 Meds/Results Medications: Active Medications Generic Name Dose Route Start Last Admin Trade Name Freq PRN Reason Stop Dose Admin Furosemide 20 mg 08/13/24 09:00 08/17/24 09:03 Furosemide 20 Mg Tablet PO 20 mg DAILY DARWIN Administration Albumin Human 50 mls @ 999 mls/hr 08/14/24 06:16 Albutein IVPB 09/13/24 06:15 Q10M PRN HYPOTENSION Lactulose 20 gm 08/14/24 13:00 08/17/24 09:01 Lactulose 20 Gm/30 Ml Udc PO 20 gm TID DARWIN Administration Levetiracetam 750 mg 08/14/24 21:00 08/17/24 09:02 Levetiracetam 250 Mg Tablet PO 750 mg Q12HR DARWIN Administration Melatonin 3 mg 08/13/24 21:00 08/16/24 21:12 Melatonin 3 Mg Tablet PO 3 mg HS DARWIN Administration Pantoprazole Sodium 40 mg 08/13/24 09:00 08/17/24 09:03 Pantoprazole 40 Mg Tablet PO 40 mg DAILY DARWIN Administration Sevelamer Carbonate 1,600 mg 08/13/24 09:00 08/17/24 09:03 Sevelamer Carbonate 800 Mg Tablet PO 1,600 mg TID DARWIN Administration Radiology Results: ITS Impressions Head/Neck CTA 08/12/24 09:20 IMPRESSION: 1. Normal brain. 2. No aneurysm or significant intracranial arterial stenosis. 3. 0% stenosis of the proximal internal carotid arteries relative to normal distal artery lumen diameters (NASCET criteria). Chest X-Ray 08/12/24 09:29 IMPRESSION: 1. No acute cardiopulmonary disease. Brain MRI 08/12/24 21:15 IMPRESSION: No acute cerebral infarction. No acute or subacute hemorrhage. Multiple foci of increased T2-weighted signal abnormalities within the periventricular white matter, suggesting demyelination. Knee X-Ray 08/13/24 11:13 Impression: No acute abnormality. Stable degenerative change and small joint effusion. Head CT 08/14/24 09:09 IMPRESSION: 1. Normal brain. Abdomen X-Ray 08/14/24 09:56 IMPRESSION: 1. Nasogastric tube tip in the stomach. Labs Labs: Laboratory Results - last 24 hr 08/17/24 06:32 WBC 1.6 L* RBC 2.29 L Hgb 7.6 L Hct 23.7 L MCV 103.5 H MCH 33.2 MCHC 32.1 RDW 15.5 H Plt Count 23 L* MPV 10.4 Immature Gran % (Auto) 0.0 Neut % (Auto) 52.8 Lymph % (Auto) 31.3 Sutter % (Auto) 9.8 H Eos % (Auto) 5.5 H Baso % (Auto) 0.6 Lymph # (Auto) 0.51 L Sutter # (Auto) 0.2 Eos # (Auto) 0.1 Baso # (Auto) 0.0 Abs Immat Gran (auto) 0.00 Absolute Neuts (auto) 0.9 L Absolute Nucleated RBC 0.000 Nucleated RBC % 0.0 % Immature Plt Fraction 3.4 Absolute Retic 0.09 Percent Retic 3.93 Immature Retic Fraction 25.7 H Retic Hgb Content 33.2 Sodium 135 L Potassium 3.9 Chloride 99 Carbon Dioxide 26 Anion Gap 10 BUN 35 H D Creatinine 6.54 H Estim Creat Clear Calc 12 Estimated GFR 9 L Glucose 106 Calcium 9.3 Phosphorus 3.5 Albumin 2.8 L Quality VTE Prophylaxis VTE prophylaxis: mechanical ordered
--- NOTE | 2024-08-17 10:02 | P.PNNP_ITS ---
Progress Note: A&P Assessment and Plan (1) End stage renal disease: Code(s): N18.6 - End stage renal disease Status: Chronic Assessment and Plan: * HD Sunday * No signs of uremia. * Volume status looks okay * potassium bicarbonate and BUN are looking good. (2) Encephalopathy: Code(s): G93.40 - Encephalopathy, unspecified Status: Acute Assessment and Plan: * presumably hepatic encephalopathy given marked rise in ammonia level * NG tube in place for medications including lactulose * Improved * The patient is getting lactulose 3 times a day now. * Hopefully ammonia levels will drop as time goes on with the lactulose treatment * check another ammonia level tomorrow (3) AMS (altered mental status): Code(s): R41.82 - Altered mental status, unspecified Status: Acute Assessment and Plan: * clinical improvement noted on 08/13 * not quite as good as he usually is. (4) Seizure: Code(s): R56.9 - Unspecified convulsions Status: Acute Assessment and Plan: * is this what occurred prior to admission(?) * Neurology recommendations noted * on [facility] (5) Anemia: Code(s): D64.9 - Anemia, unspecified Status: Chronic Assessment and Plan: * due to ESRD with contributions from liver disease * Epogen with HD * Hemoglobin 7.6 again today. * reticulocyte count 0.9. 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 * anemia further complicated by ESRD * Hem/Onc recommendations noted Subjective Date/time seen: 08/17/24 10:02 Interval history: Jj is feeling better. Words seem better enunciated. Exam Narrative: General: WD/WN male in NAD - obtunded Heart: normal S1 and S2; no rub or gallop Lungs: clear to auscultation Abdomen: soft, nontender, nondistended, positive bowel sounds Extremities: no edema Skin: No rash Objective Data Vital Signs Vital Signs: Vital Signs - 24 hr 08/16/24 14:00 08/16/24 16:00 08/16/24 20:00 Temperature 98.4 F 98.2 F Pulse Rate 64 60 60 Respiratory Rate 18 20 20 Blood Pressure 140/60 144/64 H Pulse Oximetry 97 98 98 Oxygen Delivery Room Air 08/16/24 22:41 08/17/24 06:00 Temperature 98.2 F 98.0 F Pulse Rate 61 62 Respiratory Rate 18 18 Blood Pressure 144/68 H 158/72 H Pulse Oximetry 100 99 Oxygen Delivery Intake/Output Intake/Output: Intake & Output 08/14/24 08/15/24 08/16/24 08/17/24 23:59 23:59 23:59 23:59 Intake Total 521 216 2208 240 Output Total 3000 2506 Balance -2600 -2005 1050 240 Meds/Results Medications: Active Medications Generic Name Dose Route Start Last Admin Trade Name Liam PRN Reason Stop Dose Admin Furosemide 20 mg 08/13/24 09:00 08/17/24 09:03 Furosemide 20 Mg Tablet PO 20 mg DAILY DARWIN Administration Albumin Human 50 mls @ 999 mls/hr 08/14/24 06:16 Albutein IVPB 09/13/24 06:15 Q10M PRN HYPOTENSION Lactulose 20 gm 08/14/24 13:00 08/17/24 09:01 Lactulose 20 Gm/30 Ml Udc PO 20 gm TID DARWIN Administration Levetiracetam 750 mg 08/14/24 21:00 08/17/24 09:02 Levetiracetam 250 Mg Tablet PO 750 mg Q12HR DARWIN Administration Melatonin 3 mg 08/13/24 21:00 08/16/24 21:12 Melatonin 3 Mg Tablet PO 3 mg HS DARWIN Administration Pantoprazole Sodium 40 mg 08/13/24 09:00 08/17/24 09:03 Pantoprazole 40 Mg Tablet PO 40 mg DAILY DARWIN Administration Sevelamer Carbonate 1,600 mg 08/13/24 09:00 08/17/24 09:03 Sevelamer Carbonate 800 Mg Tablet PO 1,600 mg TID DARWIN Administration Radiology Results: ITS Impressions Head/Neck CTA 08/12/24 09:20 IMPRESSION: 1. Normal brain. 2. No aneurysm or significant intracranial arterial stenosis. 3. 0% stenosis of the proximal internal carotid arteries relative to normal distal artery lumen diameters (NASCET criteria). Chest X-Ray 08/12/24 09:29 IMPRESSION: 1. No acute cardiopulmonary disease. Brain MRI 08/12/24 21:15 IMPRESSION: No acute cerebral infarction. No acute or subacute hemorrhage. Multiple foci of increased T2-weighted signal abnormalities within the periventricular white matter, suggesting demyelination. Knee X-Ray 08/13/24 11:13 Impression: No acute abnormality. Stable degenerative change and small joint effusion. Head CT 08/14/24 09:09 IMPRESSION: 1. Normal brain. Abdomen X-Ray 08/14/24 09:56 IMPRESSION: 1. Nasogastric tube tip in the stomach. Labs Labs: Laboratory Results - last 24 hr 08/17/24 06:32 WBC 1.6 L* RBC 2.29 L Hgb 7.6 L Hct 23.7 L MCV 103.5 H MCH 33.2 MCHC 32.1 RDW 15.5 H Plt Count 23 L* MPV 10.4 Immature Gran % (Auto) 0.0 Neut % (Auto) 52.8 Lymph % (Auto) 31.3 Bell % (Auto) 9.8 H Eos % (Auto) 5.5 H Baso % (Auto) 0.6 Lymph # (Auto) 0.51 L Bell # (Auto) 0.2 Eos # (Auto) 0.1 Baso # (Auto) 0.0 Abs Immat Gran (auto) 0.00 Absolute Neuts (auto) 0.9 L Absolute Nucleated RBC 0.000 Nucleated RBC % 0.0 % Immature Plt Fraction 3.4 Absolute Retic 0.09 Percent Retic 3.93 Immature Retic Fraction 25.7 H Retic Hgb Content 33.2 Sodium 135 L Potassium 3.9 Chloride 99 Carbon Dioxide 26 Anion Gap 10 BUN 35 H D Creatinine 6.54 H Estim Creat Clear Calc 12 Estimated GFR 9 L Glucose 106 Calcium 9.3 Phosphorus 3.5 Albumin 2.8 L
[2024-08-17 13:42] VITALS: BP 131/63; PULSE 62; RESP 18; TEMP 37; O2SAT 100
[2024-08-17 20:00] VITALS: PULSE 62; RESP 18; O2SAT 100
[2024-08-17] MEDS: MELATONIN 3 MG TABLET PO (21:12)
[2024-08-17 22:00] VITALS: BP 135/61; PULSE 62; RESP 12; TEMP 36.2; O2SAT 100
[2024-08-18] VITALS (22 sets, daily range): BP systolic 127–152; BP diastolic 61–76; PULSE 55–65; RESP 12–16; TEMP 36.5–37.3; O2SAT 99–100
[2024-08-18 07:22] LABS: Hematocrit 23.4 % (42.0-52.0); Hemoglobin 7.5 g/dL (14.0-18.0); Immature Platelet Fraction Pct 4.6 % (0.9-11.2); Mean Corpuscular HGB Conc 32.1 g/dl (32-36); Mean Corpuscular Hemoglobin 33.2 pg (26-34); Mean Corpuscular Volume 103.5 fl (80-100); Mean Platelet Volume 10.8 fl (7.4-10.4); Red Blood Count 2.26 M/mm3 (4.6-6.20); Red Cell Distribution Width 15.7 % (11.5-14.5)
[2024-08-18 07:26] LABS: Ammonia 112 umol/L (9-30)
[2024-08-18 07:30] LABS: Alanine Aminotransferase 11 U/L (6-50); Albumin Level 2.7 g/dL (3.5-5.1); Alkaline Phosphatase 133 U/L (38-126); Anion Gap 10 mmol/L (4-12); Aspartate Amino Transferase 22 U/L (17-59); Bilirubin,Total 0.9 mg/dL (0.2-1.3); Blood Urea Nitrogen 43 mg/dL (9-20); Carbon Dioxide 26 mmol/L (22-30); Chloride 98 mmol/L (98-107); Estimated CRCL calculation 10 ml/min; Estimated Glomerular Filt Rate 7; Glucose 102 mg/dL (65-110); Potassium 4.3 mmol/L (3.4-5.0); Sodium 134 mmol/L (137-145)
[2024-08-18 07:49] LABS: Platelet Count Result 23 k/mm3 (150-375); White Blood Count 1.8 K/mm3 (4.5-10.0)
[2024-08-18] MEDS: PANTOPRAZOLE 40 MG TABLET PO (08:05)
[2024-08-18] MEDS: LACTULOSE 20 GM/30 ML UDC PO ×3 (08:06→16:59)
[2024-08-18] MEDS: levETIRAcetam 250 MG TABLET 750 MG PO ×2 (08:06→21:23)
[2024-08-18] MEDS: SEVELAMER CARBONATE 800 MG TABLET 1600 MG PO ×3 (08:06→16:59)
--- NOTE | 2024-08-18 10:21 | P.PNNP_ITS ---
Progress Note: A&P Assessment and Plan (1) End stage renal disease: Code(s): N18.6 - End stage renal disease Status: Chronic Assessment and Plan: * HD today * continue Sunday/Sunday/Sunday outpatient dialysis schedule * follow electrolytes, volume status, and clearance (2) Encephalopathy: Code(s): G93.40 - Encephalopathy, unspecified Status: Acute Assessment and Plan: * presumably hepatic encephalopathy given marked rise in ammonia level * clinically better * getting scheduled lactulose * ammonia levels fluctuating (3) AMS (altered mental status): Code(s): R41.82 - Altered mental status, unspecified Status: Acute Assessment and Plan: * clinical improvement noted * continue supportive therapy (4) Seizure: Code(s): R56.9 - Unspecified convulsions Status: Acute Assessment and Plan: * is this what occurred prior to admission(?) * Neurology recommendations noted * on Keppra (5) Anemia: Code(s): D64.9 - Anemia, unspecified Status: Chronic Assessment and Plan: * due to ESRD with contributions from liver disease * Epogen with HD * follow trend of H/H (6) Cirrhosis: Code(s): K74.60 - Unspecified cirrhosis of liver Status: Acute Assessment and Plan: * known history * has been sober for the last 3 half years * continue lactulose (7) Pancytopenia: Code(s): D61.818 - Other pancytopenia Status: Acute Assessment and Plan: * presumed to be secondary to liver disease, especially the platelet count * anemia further complicated by ESRD * Hem/Onc recommendations noted Will continue to follow. L Subjective Date/time seen: 08/18/24 10:21 Interval history: Follow-up for end stage renal disease on hemodialysis. Chart reviewed since last seen -- tolerating dialysis treatment at the time of my visit (seen on HD at 10:10AM); resting comfortably when seen; no apparent distress noted; no issues/events overnight or earlier this morning; neutropenia noted by AM labs. Exam 2 Narrative: General: WD/WN male in NAD Heart: normal S1 and S2; no rub Lungs: clear anteriorly Abdomen: soft, nontender, nondistended, positive bowel sounds Extremities: no cyanosis or clubbing; no edema Skin: warm and intact Objective Data Vital Signs Vital Signs: Vital Signs Temp Pulse Resp BP Pulse Ox O2 Del Method 02/17/25 10:15 58 L 143/72 H 08/18/24 10:00 60 142/72 H 08/18/24 09:57 59 L 149/73 H 08/18/24 09:40 97.7 F 62 16 152/76 H 100 08/18/24 06:00 98.4 F 60 12 130/63 99 08/17/24 22:00 97.1 F L 62 12 135/61 100 08/17/24 20:00 62 18 100 Room Air Intake/Output Intake/Output: Intake & Output 08/15/24 08/16/24 08/17/24 08/18/24 23:59 23:59 23:59 23:59 Intake Total 500 1050 1030 600 Output Total 2506 3000 -2005 1050 1030 -2400 Meds/Results Medications: Active Medications Generic Name Dose Route Start Last Admin Trade Name Freq PRN Reason Stop Dose Admin Filgrastim-Sndz 300 mcg 08/19/24 09:00 Filgrastim-Sndz 300 Mcg/0.5 Ml Syringe SUB-Q DAILY DARWIN Furosemide 20 mg 08/13/24 09:00 08/18/24 08:06 Furosemide 20 Mg Tablet PO Not Given DAILY DARWIN Albumin Human 50 mls @ 999 mls/hr 08/14/24 06:16 Albutein IVPB 09/13/24 06:15 Q10M PRN HYPOTENSION Lactulose 20 gm 08/14/24 13:00 08/18/24 16:59 Lactulose 20 Gm/30 Ml Udc PO 20 gm TID DARWIN Administration Levetiracetam 750 mg 08/14/24 21:00 08/18/24 08:06 Levetiracetam 250 Mg Tablet PO 750 mg Q12HR DARWIN Administration Levofloxacin 500 mg 08/20/24 16:00 Levofloxacin 500 Mg Tablet PO Q48H DARWIN Melatonin 3 mg 08/13/24 21:00 08/17/24 21:12 Melatonin 3 Mg Tablet PO 3 mg HS DARWIN Administration Pantoprazole Sodium 40 mg 08/13/24 09:00 08/18/24 08:05 Pantoprazole 40 Mg Tablet PO 40 mg DAILY DARWIN Administration Sevelamer Carbonate 1,600 mg 08/13/24 09:00 08/18/24 16:59 Sevelamer Carbonate 800 Mg Tablet PO 1,600 mg TID DARWIN Administration Radiology Results: ITS Impressions Head/Neck CTA 08/12/24 09:20 IMPRESSION: 1. Normal brain. 2. No aneurysm or significant intracranial arterial stenosis. 3. 0% stenosis of the proximal internal carotid arteries relative to normal distal artery lumen diameters (NASCET criteria). Chest X-Ray 08/12/24 09:29 IMPRESSION: 1. No acute cardiopulmonary disease. Brain MRI 08/12/24 21:15 IMPRESSION: No acute cerebral infarction. No acute or subacute hemorrhage. Multiple foci of increased T2-weighted signal abnormalities within the periventricular white matter, suggesting demyelination. Knee X-Ray 08/13/24 11:13 Impression: No acute abnormality. Stable degenerative change and small joint effusion. Head CT 08/14/24 09:09 IMPRESSION: 1. Normal brain. Abdomen X-Ray 08/14/24 09:56 IMPRESSION: 1. Nasogastric tube tip in the stomach. Labs Labs: Laboratory Tests 08/18/24 06:47 08/18/24 06:47 Calcium 9.0 Total Bilirubin 0.9 AST 22 ALT 11 Alkaline Phosphatase 133 H Ammonia 112 H Total Protein 6.0 L Albumin 2.7 L
[2024-08-18] MEDS: EPOETIN ALFA-EPBX 20,000 UNITS/ML VIAL 20000 UNITS IV PUSH (12:46)
[2024-08-18] MEDS: levoFLOXacin 750 MG TABLET PO (14:49)
[2024-08-18 15:23] LABS: Erythropoietin (EPO) 152.3 mIU/mL (2.6-18.5)
--- NOTE | 2024-08-18 16:53 | P.PNIM_ITS ---
Progress Note: A&P Assessment and Plan (1) Encephalopathy: Code(s): G93.40 - Encephalopathy, unspecified Status: Acute Assessment and Plan: RESOLVED 06/13: Patient was found to be obtunded, protecting airway, 06/13: stat CT scan of the brain was negative -ammonia levels were elevated to 181 -encephalopathy is likely related to hepatic encephalopathy secondary to hyperammonemia -NG tube was inserted, patient was given his scheduled lactulose -discuss with Nephrology, patient will be dialyzed JOSUÉ -continue to monitor ammonia level q.6 hours 06/14: Patient is awake, alert, oriented x3. Ammonia levels are down to 37 this morning -will continue lactulose t.i.d. 08/16: Patient is encephalopathy has improved a lot. Plan is to continue current treatment. 08/17 Patient is more alert and awake. Will continue current treatment, monitor ammonia level. (2) Acute alteration in mental status: Code(s): R41.82 - Altered mental status, unspecified Status: Acute Assessment and Plan: 06/11: Patient admitted with altered mental status post dialysis. -06/11: And neck CTA was normal, no aneurysm or significant intracranial arterial stenosis -rain MRI no acute cerebral infarction, no acute subacute hemorrhage, Multiple foci of increased T2-weighted signal abnormalities within the periventricular white matter, suggesting demyelination. Urine toxicology and ethanol level negative 08/16 Almost resolved. 08/17 Resolved (3) Seizure: Code(s): R56.9 - Unspecified convulsions Status: Acute Assessment and Plan: Patient has a history of post dialysis seizures Appreciate Neurology evaluation recommendation Continue Bernice hannon (4) Pancytopenia: Code(s): D61.818 - Other pancytopenia Status: Acute Assessment and Plan: Patient was in hospital on 05/25/2021 he received 3 units of platelets and 1 unit FFP and vitamin K however it does not appear that he had seen Hematology at that time we, patient does not bleed he has been seen by applied research director Appreciate Heme-Onc evaluation and recommendations. Pancytopenia thought to be secondary to liver cirrhosis, anemia is most likely secondary to chronic kidney disease. 08/18:Has ordered Epogen and Levofloxacin.Follow-up with Heme-Onc in office post discharge (5) Cirrhosis: Code(s): K74.60 - Unspecified cirrhosis of liver Status: Acute Assessment and Plan: Has been sober for the last 3 half years Patient states he takes lactulose 2 to 3 times a day -continue lactulose t.i.d. (6) ESRD needing dialysis: Code(s): N18.6 - End stage renal disease; Z99.2 - Dependence on renal dialysis Status: Chronic Assessment and Plan: AV fistula Nephrology following, dialysis per automobile damage field appraiser Nguyen batistaikaterin Continue Renvela Plan DVT prophylaxis: SCDs Stress ulcer prophylaxis: Protonix Code Status: Full code Subjective Date/time seen: 08/18/24 16:53 Interval history: Underwent dialysis today. Started filgastrim and levofloxacin for neutropenia. Review of Systems Review of Systems: 12 systems were reviewed and are negativ e except for as per HPI. All systems reviewed & are unremarkable except as noted in HPI and below ROS unobtainable: Yes unobtainable due to medical condition and unobtainable due to mental status Exam Narrative: General: Patient awake, alert, pleasant gentleman in no acute this HEENT: Pupils equal and reactive, sclerae is clear Neck: Supple Respiratory: clear to auscultation bilaterally. Adequate air entry, no wheeze. Cardiovascular: Sinus bradycardia normal S1-S2, 2/6 systolic murmur of aortic stenosis Abdomen: Soft, nontender, nondistended, normoactive bowel sounds Extremities: No cyanosis, clubbing, or edema present. Pulses are palpable 2/2. Neuro: Patient is awake, alert, oriented x3, answers to questions appropriately, follows simple commands in all extremities Skin: Warm, dry, and intact, without rash, erythema, or lesion. Psych: Normal mentation and affect Objective Data Vital Signs Vital Signs: Vital Signs - 24 hr 08/17/24 20:00 08/17/24 22:00 08/18/24 06:00 Temperature 97.1 F L 98.4 F Pulse Rate 62 62 60 Respiratory Rate 18 12 12 Blood Pressure 135/61 130/63 Pulse Oximetry 100 100 99 Oxygen Delivery Room Air 08/18/24 09:40 08/18/24 09:57 08/18/24 10:00 Temperature 97.7 F Pulse Rate 62 59 L 60 Respiratory Rate 16 Blood Pressure 152/76 H 149/73 H 142/72 H Pulse Oximetry 100 Oxygen Delivery 08/18/24 10:15 08/18/24 10:30 08/18/24 10:45 Temperature Pulse Rate 58 L 59 L 57 L Respiratory Rate Blood Pressure 143/72 H 139/68 142/71 H Pulse Oximetry Oxygen Delivery 08/18/24 11:00 08/18/24 11:15 08/18/24 11:30 Temperature Pulse Rate 58 L 58 L 57 L Respiratory Rate Blood Pressure 137/70 138/71 139/72 Pulse Oximetry Oxygen Delivery 08/18/24 11:45 08/18/24 12:00 08/18/24 12:15 Temperature Pulse Rate 57 L 57 L 55 L Respiratory Rate Blood Pressure 135/71 131/68 141/69 H Pulse Oximetry Oxygen Delivery 08/18/24 12:30 08/18/24 12:45 08/18/24 13:00 Temperature Pulse Rate 56 L 56 L 58 L Respiratory Rate Blood Pressure 138/67 142/69 H 130/65 Pulse Oximetry Oxygen Delivery 08/18/24 13:15 08/18/24 13:29 08/18/24 13:36 Temperature 98.1 F Pulse Rate 58 L 57 L 57 L Respiratory Rate 15 Blood Pressure 138/66 143/70 H 142/68 H Pulse Oximetry 99 Oxygen Delivery Intake/Output Intake/Output: Intake & Output 08/15/24 08/16/24 08/17/24 08/18/24 23:59 23:59 23:59 23:59 Intake Total 500 1050 1030 600 Output Total 2506 3000 Balance -2005 1050 1030 -2400 Meds/Results Medications: Active Medications Generic Name Dose Route Start Last Admin Trade Name Freq PRN Reason Stop Dose Admin Filgrastim-Sndz 300 mcg 08/19/24 09:00 Filgrastim-Sndz 300 Mcg/0.5 Ml Syringe SUB-Q DAILY DARWIN Furosemide 20 mg 08/13/24 09:00 08/18/24 08:06 Furosemide 20 Mg Tablet PO Not Given DAILY DARWIN Albumin Human 50 mls @ 999 mls/hr 08/14/24 06:16 Albutein IVPB 09/13/24 06:15 Q10M PRN HYPOTENSION Lactulose 20 gm 08/14/24 13:00 08/18/24 14:32 Lactulose 20 Gm/30 Ml Udc PO 20 gm TID DARWIN Administration Levetiracetam 750 mg 08/14/24 21:00 08/18/24 08:06 Levetiracetam 250 Mg Tablet PO 750 mg Q12HR DARWIN Administration Levofloxacin 500 mg 08/20/24 16:00 Levofloxacin 500 Mg Tablet PO Q48H DARWIN Melatonin 3 mg 08/13/24 21:00 08/17/24 21:12 Melatonin 3 Mg Tablet PO 3 mg HS DARWIN Administration Pantoprazole Sodium 40 mg 08/13/24 09:00 08/18/24 08:05 Pantoprazole 40 Mg Tablet PO 40 mg DAILY DARWIN Administration Sevelamer Carbonate 1,600 mg 08/13/24 09:00 08/18/24 14:32 Sevelamer Carbonate 800 Mg Tablet PO 1,600 mg TID DARWIN Administration Radiology Results: ITS Impressions Head/Neck CTA 08/12/24 09:20 IMPRESSION: 1. Normal brain. 2. No aneurysm or significant intracranial arterial stenosis. 3. 0% stenosis of the proximal internal carotid arteries relative to normal distal artery lumen diameters (NASCET criteria). Chest X-Ray 08/12/24 09:29 IMPRESSION: 1. No acute cardiopulmonary disease. Brain MRI 08/12/24 21:15 IMPRESSION: No acute cerebral infarction. No acute or subacute hemorrhage. Multiple foci of increased T2-weighted signal abnormalities within the periventricular white matter, suggesting demyelination. Knee X-Ray 08/13/24 11:13 Impression: No acute abnormality. Stable degenerative change and small joint effusion. Head CT 08/14/24 09:09 IMPRESSION: 1. Normal brain. Abdomen X-Ray 08/14/24 09:56 IMPRESSION: 1. Nasogastric tube tip in the stomach. Labs Labs: Laboratory Results - last 24 hr 08/13/24 08/18/24 04:30 06:47 WBC 1.8 L* RBC 2.26 L Hgb 7.5 L Hct 23.4 L MCV 103.5 H MCH 33.2 MCHC 32.1 RDW 15.7 H Plt Count 23 L* MPV 10.8 H % Immature Plt Fraction 4.6 Sodium 134 L Potassium 4.3 Chloride 98 Carbon Dioxide 26 Anion Gap 10 BUN 43 H Creatinine 8.09 H Estim Creat Clear Calc 10 Estimated GFR 7 L Glucose 102 Calcium 9.0 Erythropoietin 152.3 H Total Bilirubin 0.9 AST 22 ALT 11 Alkaline Phosphatase 133 H Ammonia 112 H Total Protein 6.0 L Albumin 2.7 L Quality VTE Prophylaxis VTE prophylaxis: mechanical ordered Hospitalist [facility] Advance Care Plan I have confirmed that the patient's Advanced Care Plan is present, code status is documented, or surrogate decision maker is listed in patient medical record.: Yes Medication Reconciliation I have utilized all available resources to obtain, update and review the patients current medications (includes all prescriptions, OTC, herbals, cannabis, and nutritional supplements).: Yes
[2024-08-18] MEDS: MELATONIN 3 MG TABLET PO (21:23)
[2024-08-19 06:00] VITALS: BP 129/62; PULSE 64; RESP 12; TEMP 37.4; O2SAT 99
[2024-08-19 07:15] LABS: Hematocrit 24.4 % (42.0-52.0); Hemoglobin 7.8 g/dL (14.0-18.0); Immature Platelet Fraction Pct 4.3 % (0.9-11.2); Mean Corpuscular Hemoglobin 33.1 pg (26-34); Mean Corpuscular Volume 103.4 fl (80-100); Mean Platelet Volume 11.1 fl (7.4-10.4); Platelet Count Result 27 k/mm3 (150-375); Red Blood Count 2.36 M/mm3 (4.6-6.20); Red Cell Distribution Width 15.5 % (11.5-14.5)
[2024-08-19 07:24] LABS: Alanine Aminotransferase 14 U/L (6-50); Albumin Level 2.9 g/dL (3.5-5.1); Alkaline Phosphatase 169 U/L (38-126); Anion Gap 6 mmol/L (4-12); Aspartate Amino Transferase 26 U/L (17-59); Bilirubin,Total 0.9 mg/dL (0.2-1.3); Blood Urea Nitrogen 22 mg/dL (9-20); Calcium 9.3 mg/dL (8.4-10.2); Carbon Dioxide 31 mmol/L (22-30); Chloride 99 mmol/L (98-107); Estimated CRCL calculation 16 ml/min; Estimated Glomerular Filt Rate 12; Glucose 107 mg/dL (65-110); Sodium 136 mmol/L (137-145)
[2024-08-19 07:29] LABS: White Blood Count 1.7 K/mm3 (4.5-10.0)
--- NOTE | 2024-08-19 09:32 | PCNWS ---
Weekly nutritional screen. Patient is tolerating current renal diet with adequate intake at 100%. No weight loss reported. No nutritional recommendations at this time.
[2024-08-19] MEDS: LACTULOSE 20 GM/30 ML UDC PO ×3 (09:47→16:36)
[2024-08-19] MEDS: FUROSEMIDE 20 MG TABLET PO (09:48)
[2024-08-19] MEDS: PANTOPRAZOLE 40 MG TABLET PO (09:48)
[2024-08-19] MEDS: SEVELAMER CARBONATE 800 MG TABLET 1600 MG PO ×3 (09:48→16:36)
[2024-08-19] MEDS: levETIRAcetam 250 MG TABLET 750 MG PO ×2 (09:48→22:01)
[2024-08-19] MEDS: FILGRASTIM-SNDZ 300 MCG/0.5 ML SYRINGE SUB-Q (09:49)
--- NOTE | 2024-08-19 11:31 | P.PNNP_ITS ---
Progress Note: A&P Assessment and Plan (1) End stage renal disease: Code(s): N18.6 - End stage renal disease Status: Chronic Assessment and Plan: * HD tomorrow * continue Sunday/Sunday/Sunday outpatient dialysis schedule * follow electrolytes, volume status, and clearance (2) Encephalopathy: Code(s): G93.40 - Encephalopathy, unspecified Status: Acute Assessment and Plan: * presumably hepatic encephalopathy given marked rise in ammonia level * clinically better * getting scheduled lactulose * ammonia levels fluctuating (3) AMS (altered mental status): Code(s): R41.82 - Altered mental status, unspecified Status: Acute Assessment and Plan: * clinical improvement noted (see #2) * continue supportive therapy (4) Seizure: Code(s): R56.9 - Unspecified convulsions Status: Acute Assessment and Plan: * is this what occurred prior to admission(?) * Neurology recommendations noted * on Keppra (5) Anemia: Code(s): D64.9 - Anemia, unspecified Status: Chronic Assessment and Plan: * due to ESRD with contributions from liver disease * Epogen with HD * follow trend of H/H (6) Cirrhosis: Code(s): K74.60 - Unspecified cirrhosis of liver Status: Acute Assessment and Plan: * known history * has been sober for the last 3 half years * continue lactulose (7) Pancytopenia: Code(s): D61.818 - Other pancytopenia Status: Acute Assessment and Plan: * presumed to be secondary to liver disease, especially the platelet count * anemia further complicated by ESRD * on filgrastim * Hem/Onc recommendations noted Will continue to follow. L Subjective Date/time seen: 08/19/24 11:31 Interval history: Follow-up for end stage renal disease on hemodialysis. Tolerated dialysis treatment yesterday without any issues or problems; resting comfortably at the time of my visit; no apparent distress noted; no other events overnight or earlier this morning; feels reasonably well. Exam 2 Narrative: General: WD/WN male in NAD Heart: normal S1 and S2; no rub Lungs: clear anteriorly Abdomen: soft, nontender, nondistended, positive bowel sounds Extremities: no cyanosis or clubbing; no edema Skin: no rash Objective Data Vital Signs Vital Signs: Vital Signs Temp Pulse Resp BP Pulse Ox O2 Del Method 08/19/24 06:00 99.3 F 64 12 129/62 99 08/18/24 22:00 99.1 F 65 13 127/61 99 08/18/24 20:00 57 L 15 99 Room Air Intake/Output Intake/Output: Intake & Output 08/16/24 08/17/24 08/18/24 08/19/24 23:59 23:59 23:59 23:59 Intake Total 1050 1030 840 800 Output Total 3000 0 Balance 1050 1030 -2160 800 Meds/Results Medications: Active Medications Generic Name Dose Route Start Last Admin Trade Name Freq PRN Reason Stop Dose Admin Filgrastim-Sndz 300 mcg 08/19/24 09:00 08/19/24 09:49 Filgrastim-Sndz 300 Mcg/0.5 Ml Syringe SUB-Q 300 mcg DAILY DARWIN Administration Furosemide 20 mg 08/13/24 09:00 08/19/24 09:48 Furosemide 20 Mg Tablet PO 20 mg DAILY DARWIN Administration Albumin Human 50 mls @ 999 mls/hr 08/14/24 06:16 Albutein IVPB 09/13/24 06:15 Q10M PRN HYPOTENSION Lactulose 20 gm 08/14/24 13:00 08/19/24 12:24 Lactulose 20 Gm/30 Ml Udc PO 20 gm TID DARWIN Administration Levetiracetam 750 mg 08/14/24 21:00 08/19/24 09:48 Levetiracetam 250 Mg Tablet PO 750 mg Q12HR DARWIN Administration Levofloxacin 500 mg 08/20/24 16:00 Levofloxacin 500 Mg Tablet PO Q48H DARWIN Melatonin 3 mg 08/13/24 21:00 08/18/24 21:23 Melatonin 3 Mg Tablet PO 3 mg HS DARWIN Administration Pantoprazole Sodium 40 mg 08/13/24 09:00 08/19/24 09:48 Pantoprazole 40 Mg Tablet PO 40 mg DAILY DARWIN Administration Sevelamer Carbonate 1,600 mg 08/13/24 09:00 08/19/24 12:24 Sevelamer Carbonate 800 Mg Tablet PO 1,600 mg TID DARWIN Administration Radiology Results: ITS Impressions Head/Neck CTA 08/12/24 09:20 IMPRESSION: 1. Normal brain. 2. No aneurysm or significant intracranial arterial stenosis. 3. 0% stenosis of the proximal internal carotid arteries relative to normal distal artery lumen diameters (NASCET criteria). Chest X-Ray 08/12/24 09:29 IMPRESSION: 1. No acute cardiopulmonary disease. Brain MRI 08/12/24 21:15 IMPRESSION: No acute cerebral infarction. No acute or subacute hemorrhage. Multiple foci of increased T2-weighted signal abnormalities within the periventricular white matter, suggesting demyelination. Knee X-Ray 08/13/24 11:13 Impression: No acute abnormality. Stable degenerative change and small joint effusion. Head CT 08/14/24 09:09 IMPRESSION: 1. Normal brain. Abdomen X-Ray 08/14/24 09:56 IMPRESSION: 1. Nasogastric tube tip in the stomach. Labs Labs: Laboratory Tests 08/19/24 06:36 08/19/24 06:36 Calcium 9.3 Total Bilirubin 0.9 AST 26 ALT 14 Alkaline Phosphatase 169 H Total Protein 6.0 L Albumin 2.9 L
[2024-08-19 14:00] VITALS: BP 131/59; PULSE 62; RESP 16; TEMP 36.3; O2SAT 100
--- NOTE | 2024-08-19 14:52 | P.PNIM_ITS ---
Progress Note: A&P Assessment and Plan (1) Encephalopathy: Code(s): G93.40 - Encephalopathy, unspecified Status: Acute Assessment and Plan: RESOLVED likely from hepatic encephalopathy NH3 was 181 on admission improving continue lactulose and monitor NH3 Patient alert and oriented at baseline (2) Acute alteration in mental status: Code(s): R41.82 - Altered mental status, unspecified Status: Acute Assessment and Plan: 06/11: Patient admitted with altered mental status post dialysis. -06/11: And neck CTA was normal, no aneurysm or significant intracranial arterial stenosis -rain MRI no acute cerebral infarction, no acute subacute hemorrhage, Multiple foci of increased T2-weighted signal abnormalities within the periventricular white matter, suggesting demyelination. Urine toxicology and ethanol level negative 08/16 Almost resolved. 08/17 Resolved (3) Seizure: Code(s): R56.9 - Unspecified convulsions Status: Acute Assessment and Plan: Patient has a history of post dialysis seizures Appreciate Neurology evaluation recommendation Continue Bernice hannon (4) Pancytopenia: Code(s): D61.818 - Other pancytopenia Status: Acute Assessment and Plan: Patient was in hospital on 05/25/2021 he received 3 units of platelets and 1 unit FFP and vitamin K however it does not appear that he had seen Hematology at that time we, patient does not bleed he has been seen by justice professor Appreciate Heme-Onc evaluation and recommendations. Pancytopenia thought to be secondary to liver cirrhosis, anemia is most likely secondary to chronic kidney disease. 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 (6) ESRD needing dialysis: Code(s): N18.6 - End stage renal disease; Z99.2 - Dependence on renal dialysis Status: Chronic Assessment and Plan: AV fistula Nephrology following, dialysis per tire mold engraver Nguyen b.i.d. Continue Renvela Plan DVT prophylaxis: SCDs Stress ulcer prophylaxis: Protonix Code Status: Full code Subjective Date/time seen: 08/19/24 14:52 Interval history: Continue dialysis Hb 7.8, Plts 27 improving, WBC 1.7 On Filgastrium Review of Systems Review of Systems: 12 systems were reviewed and are negativ e except for as per HPI. All systems reviewed & are unremarkable except as noted in HPI and below ROS unobtainable: Yes unobtainable due to medical condition and unobtainable due to mental status Exam Narrative: General: Patient awake, alert, pleasant gentleman in no acute this HEENT: Pupils equal and reactive, sclerae is clear Neck: Supple Respiratory: clear to auscultation bilaterally. Adequate air entry, no wheeze. Cardiovascular: Sinus bradycardia normal S1-S2, 2/6 systolic murmur of aortic stenosis Abdomen: Soft, nontender, nondistended, normoactive bowel sounds Extremities: No cyanosis, clubbing, or edema present. Pulses are palpable 2/2. Neuro: Patient is awake, alert, oriented x3, answers to questions appropriately, follows simple commands in all extremities Skin: Warm, dry, and intact, without rash, erythema, or lesion. Psych: Normal mentation and affect Objective Data Vital Signs Vital Signs: Vital Signs - 24 hr 08/18/24 20:00 08/18/24 22:00 08/19/24 06:00 Temperature 99.1 F 99.3 F Pulse Rate 57 L 65 64 Respiratory Rate 15 13 12 Blood Pressure 127/61 129/62 Pulse Oximetry 99 99 99 Oxygen Delivery Room Air 08/19/24 14:00 Temperature 97.4 F L Pulse Rate 62 Respiratory Rate 16 Blood Pressure 131/59 L Pulse Oximetry 100 Oxygen Delivery Intake/Output Intake/Output: Intake & Output 08/16/24 08/17/24 08/18/24 08/19/24 23:59 23:59 23:59 23:59 Intake Total 1050 1030 840 800 Output Total 3000 0 Balance 1050 1030 -2160 800 Meds/Results Medications: Active Medications Generic Name Dose Route Start Last Admin Trade Name Freq PRN Reason Stop Dose Admin Filgrastim-Sndz 300 mcg 08/19/24 09:00 08/19/24 09:49 Filgrastim-Sndz 300 Mcg/0.5 Ml Syringe SUB-Q 300 mcg DAILY DARWIN Administration Furosemide 20 mg 08/13/24 09:00 08/19/24 09:48 Furosemide 20 Mg Tablet PO 20 mg DAILY DARWIN Administration Albumin Human 50 mls @ 999 mls/hr 08/14/24 06:16 Albutein IVPB 09/13/24 06:15 Q10M PRN HYPOTENSION Lactulose 20 gm 08/14/24 13:00 08/19/24 12:24 Lactulose 20 Gm/30 Ml Udc PO 20 gm TID DARWIN Administration Levetiracetam 750 mg 08/14/24 21:00 08/19/24 09:48 Levetiracetam 250 Mg Tablet PO 750 mg Q12HR DARWIN Administration Levofloxacin 500 mg 08/20/24 16:00 Levofloxacin 500 Mg Tablet PO Q48H DARWIN Melatonin 3 mg 08/13/24 21:00 08/18/24 21:23 Melatonin 3 Mg Tablet PO 3 mg HS DARWIN Administration Pantoprazole Sodium 40 mg 08/13/24 09:00 08/19/24 09:48 Pantoprazole 40 Mg Tablet PO 40 mg DAILY DARWIN Administration Sevelamer Carbonate 1,600 mg 08/13/24 09:00 08/19/24 12:24 Sevelamer Carbonate 800 Mg Tablet PO 1,600 mg TID DARWIN Administration Radiology Results: ITS Impressions Head/Neck CTA 08/12/24 09:20 IMPRESSION: 1. Normal brain. 2. No aneurysm or significant intracranial arterial stenosis. 3. 0% stenosis of the proximal internal carotid arteries relative to normal distal artery lumen diameters (NASCET criteria). Chest X-Ray 08/12/24 09:29 IMPRESSION: 1. No acute cardiopulmonary disease. Brain MRI 08/12/24 21:15 IMPRESSION: No acute cerebral infarction. No acute or subacute hemorrhage. Multiple foci of increased T2-weighted signal abnormalities within the periventricular white matter, suggesting demyelination. Knee X-Ray 08/13/24 11:13 Impression: No acute abnormality. Stable degenerative change and small joint effusion. Head CT 08/14/24 09:09 IMPRESSION: 1. Normal brain. Abdomen X-Ray 08/14/24 09:56 IMPRESSION: 1. Nasogastric tube tip in the stomach. Labs Labs: Laboratory Results - last 24 hr 08/13/24 08/19/24 04:30 06:36 WBC 1.7 L* RBC 2.36 L Hgb 7.8 L Hct 24.4 L MCV 103.4 H MCH 33.1 MCHC 32.0 RDW 15.5 H Plt Count 27 L MPV 11.1 H % Immature Plt Fraction 4.3 Sodium 136 L Potassium 4.0 Chloride 99 Carbon Dioxide 31 H Anion Gap 6 BUN 22 H D Creatinine 4.86 H Estim Creat Clear Calc 16 Estimated GFR 12 L Glucose 107 Calcium 9.3 Erythropoietin 152.3 H Total Bilirubin 0.9 AST 26 ALT 14 Alkaline Phosphatase 169 H Total Protein 6.0 L Albumin 2.9 L Quality VTE Prophylaxis VTE prophylaxis: mechanical ordered
[2024-08-19 20:45] VITALS: BP 126/52; PULSE 93; RESP 16; TEMP 36.7; O2SAT 100
[2024-08-19] MEDS: MELATONIN 3 MG TABLET PO (22:02)
[2024-08-20] VITALS (22 sets, daily range): BP systolic 115–162; BP diastolic 59–74; PULSE 67–87; RESP 12–20; TEMP 37–37.1; O2SAT 95–100
[2024-08-20] MEDS: levETIRAcetam 250 MG TABLET 750 MG PO ×2 (08:18→21:23)
[2024-08-20] MEDS: FUROSEMIDE 20 MG TABLET PO (08:18)
[2024-08-20] MEDS: SEVELAMER CARBONATE 800 MG TABLET 1600 MG PO ×3 (08:18→16:08)
[2024-08-20] MEDS: PANTOPRAZOLE 40 MG TABLET PO (08:18)
[2024-08-20] MEDS: LACTULOSE 20 GM/30 ML UDC PO ×3 (08:23→16:08)
[2024-08-20] MEDS: FILGRASTIM-SNDZ 300 MCG/0.5 ML SYRINGE SUB-Q (08:23)
--- NOTE | 2024-08-20 09:10 | PC.NURSE ---
To Dialysis per hospital bed.
--- NOTE | 2024-08-20 10:20 | PM.PNNEP ---
Subjective Date/time seen: 08/20/24 10:20 Interval history: Follow-up for end stage renal disease on hemodialysis. Tolerating dialysis treatment at the time of my visit (seen on HD at 10:10AM); Objective Data Vital Signs Vital Signs: Vital Signs Temp Pulse Resp BP Pulse Ox O2 Del Method 08/20/24 10:15 75 141/74 H 08/20/24 10:00 71 135/69 08/20/24 09:50 71 139/70 08/20/24 09:35 98.6 F 69 16 162/72 H 99 08/20/24 08:00 Room Air 08/20/24 05:58 98.6 F 73 16 124/63 100 08/19/24 20:45 98.0 F 93 16 126/52 L 100 08/19/24 20:00 Room Air Intake/Output Intake/Output: Intake & Output 08/17/24 08/18/24 08/19/24 08/20/24 23:59 23:59 23:59 23:59 Intake Total 1241 053 1978 480 Output Total 3000 0 4000 Balance 1030 -2160 1040 -3520 Meds/Results Medications: Active Medications Generic Name Dose Route Start Last Admin Trade Name Freq PRN Reason Stop Dose Admin Filgrastim-Sndz 300 mcg 08/19/24 09:00 08/20/24 08:23 Filgrastim-Sndz 300 Mcg/0.5 Ml Syringe SUB-Q 300 mcg DAILY DARWIN Administration Furosemide 20 mg 08/13/24 09:00 08/20/24 08:18 Furosemide 20 Mg Tablet PO 20 mg DAILY DARWIN Administration Albumin Human 50 mls @ 999 mls/hr 08/14/24 06:16 Albutein IVPB 09/13/24 06:15 Q10M PRN HYPOTENSION Lactulose 20 gm 08/14/24 13:00 08/20/24 16:08 Lactulose 20 Gm/30 Ml Udc PO 20 gm TID DARWIN Administration Levetiracetam 750 mg 08/14/24 21:00 08/20/24 08:18 Levetiracetam 250 Mg Tablet PO 750 mg Q12HR DARWIN Administration Levofloxacin 500 mg 08/20/24 16:00 08/20/24 16:08 Levofloxacin 500 Mg Tablet PO 500 mg Q48H DARWIN Administration Melatonin 3 mg 08/13/24 21:00 08/19/24 22:02 Melatonin 3 Mg Tablet PO 3 mg HS DARWIN Administration Pantoprazole Sodium 40 mg 08/13/24 09:00 08/20/24 08:18 Pantoprazole 40 Mg Tablet PO 40 mg DAILY DAWRIN Administration Sevelamer Carbonate 1,600 mg 08/13/24 09:00 08/20/24 16:08 Sevelamer Carbonate 800 Mg Tablet PO 1,600 mg TID DARWIN Administration Radiology Results: ITS Impressions Head/Neck CTA 08/12/24 09:20 IMPRESSION: 1. Normal brain. 2. No aneurysm or significant intracranial arterial stenosis. 3. 0% stenosis of the proximal internal carotid arteries relative to normal distal artery lumen diameters (NASCET criteria). Chest X-Ray 08/12/24 09:29 IMPRESSION: 1. No acute cardiopulmonary disease. Brain MRI 08/12/24 21:15 IMPRESSION: No acute cerebral infarction. No acute or subacute hemorrhage. Multiple foci of increased T2-weighted signal abnormalities within the periventricular white matter, suggesting demyelination. Knee X-Ray 08/13/24 11:13 Impression: No acute abnormality. Stable degenerative change and small joint effusion. Head CT 08/14/24 09:09 IMPRESSION: 1. Normal brain. Abdomen X-Ray 08/14/24 09:56 IMPRESSION: 1. Nasogastric tube tip in the stomach. Labs Labs: Laboratory Tests 08/20/24 09:50 08/20/24 09:50 Lactic Acid 2.1 H Calcium 9.8 Magnesium 2.2 Total Bilirubin 0.9 AST 30 ALT 16 Alkaline Phosphatase 203 H Ammonia 20 Total Protein 6.0 L Albumin 2.8 L
[2024-08-20 10:21] LABS: Basophils Percent Auto 0.7 % (0.2-1.2); Eosinophils Absolute Auto 0.1 K/mm3 (0-0.3); Eosinophils Percent Auto 2.8 % (0-4.4); Hematocrit 24.5 % (42.0-52.0); Hemoglobin 7.9 g/dL (14.0-18.0); Immature Granulocyte Absolute 0.03 K/mm3 (0.00-0.031); Immature Platelet Fraction Pct 3.7 % (0.9-11.2); Lymphocytes Absolute Auto 0.47 K/mm3 (0.9-3.2); Lymphocytes Percent Auto 16.4 % (18.3-44.2); Mean Corpuscular HGB Conc 32.2 g/dl (32-36); Mean Corpuscular Hemoglobin 33.8 pg (26-34); Mean Corpuscular Volume 104.7 fl (80-100); Mean Platelet Volume 10.4 fl (7.4-10.4); Monocytes Absolute Auto 0.2 K/mm3 (0.1-0.6); Monocytes Percent Auto 7.3 % (2.6-8.5); Neutrophils Absolute Auto 2.1 K/mm3 (1.3-6.7); Neutrophils Percent Auto 71.8 % (45.5-73.1); Red Blood Count 2.34 M/mm3 (4.6-6.20); Red Cell Distribution Width 15.8 % (11.5-14.5); White Blood Count 2.9 K/mm3 (4.5-10.0)
[2024-08-20 10:28] LABS: Lactic Acid Reflex 2.1 mmol/L (0.7-2.0)
[2024-08-20 10:29] LABS: Ammonia 20 umol/L (9-30)
[2024-08-20 10:30] LABS: Alanine Aminotransferase 16 U/L (6-50); Albumin Level 2.8 g/dL (3.5-5.1); Alkaline Phosphatase 203 U/L (38-126); Anion Gap 10 mmol/L (4-12); Aspartate Amino Transferase 30 U/L (17-59); Bilirubin,Total 0.9 mg/dL (0.2-1.3); Blood Urea Nitrogen 31 mg/dL (9-20); Calcium 9.8 mg/dL (8.4-10.2); Carbon Dioxide 28 mmol/L (22-30); Chloride 98 mmol/L (98-107); Estimated CRCL calculation 11 ml/min; Estimated Glomerular Filt Rate 8; Glucose 113 mg/dL (65-110); Magnesium 2.2 mg/dL (1.6-2.3); Potassium 3.9 mmol/L (3.4-5.0); Sodium 136 mmol/L (137-145)
[2024-08-20] MEDS: EPOETIN ALFA-EPBX 20,000 UNITS/ML VIAL 20000 UNITS IV PUSH (12:06)
[2024-08-20 12:29] LABS: Anisocytosis 1+; Platelet Estimate Decreased (Adequate); Schistocytes None Seen
[2024-08-20 12:32] LABS: Platelet Count Result 23 k/mm3 (150-375)
[2024-08-20 13:13] LABS: Reflex Lactic Acid Yes or No Add Lactic
[2024-08-20 13:53] LABS: Ammonia 15 umol/L (9-30); Lactic Acid 2.5 mmol/L (0.7-2.0)
--- NOTE | 2024-08-20 14:10 | PC.NURSE ---
Returned to room per hospital bed from Dialysis.
--- NOTE | 2024-08-20 15:25 | PC.NURSE ---
Linh, with [facility] Transport Team, called requesting labs to be drawn in the morning. Dr. Mosquera notified per telephone of request and orders entered.
--- NOTE | 2024-08-20 15:42 | P.PNIM_ITS ---
Progress Note: A&P Assessment and Plan (1) Encephalopathy: Code(s): G93.40 - Encephalopathy, unspecified Status: Acute Assessment and Plan: RESOLVED likely from hepatic encephalopathy NH3 was 181 on admission improving continue lactulose and monitor NH3 Patient alert and oriented at baseline NH3 20 (2) Acute alteration in mental status: Code(s): R41.82 - Altered mental status, unspecified Status: Acute Assessment and Plan: 06/11: Patient admitted with altered mental status post dialysis. -06/11: And neck CTA was normal, no aneurysm or significant intracranial arterial stenosis -rain MRI no acute cerebral infarction, no acute subacute hemorrhage, Multiple foci of increased T2-weighted signal abnormalities within the periventricular white matter, suggesting demyelination. From hepatic encephalopathy Continue Lactulose (3) Seizure: Code(s): R56.9 - Unspecified convulsions Status: Acute Assessment and Plan: Patient has a history of post dialysis seizures Appreciate Neurology evaluation recommendation Continue Kejose luisra s (4) Pancytopenia: Code(s): D61.818 - Other pancytopenia Status: Acute Assessment and Plan: Patient was in hospital on 05/25/2021 he received 3 units of platelets and 1 unit FFP and vitamin K however it does not appear that he had seen Hematology at that time we, patient does not bleed he has been seen by nurses' aide Appreciate Heme-Onc evaluation and recommendations. Pancytopenia thought to be secondary to liver cirrhosis, anemia is most likely secondary to chronic kidney disease. 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 (6) ESRD needing dialysis: Code(s): N18.6 - End stage renal disease; Z99.2 - Dependence on renal dialysis Status: Chronic Assessment and Plan: AV fistula Nephrology following, dialysis per asic design engineer Lasix b.i.d. Continue Renvela Plan DVT prophylaxis: SCDs Stress ulcer prophylaxis: Protonix Code Status: Full code Subjective Date/time seen: 08/20/24 15:42 Interval history: Continue dialysis Hb 7.9, Plts 23 improving, WBC 2.9 On Filgrastim Review of Systems Review of Systems: 12 systems were reviewed and are negativ e except for as per HPI. All systems reviewed & are unremarkable except as noted in HPI and below ROS unobtainable: Yes unobtainable due to medical condition and unobtainable due to mental status Exam Narrative: General: Patient awake, alert, pleasant gentleman in no acute this HEENT: Pupils equal and reactive, sclerae is clear Neck: Supple Respiratory: clear to auscultation bilaterally. Adequate air entry, no wheeze. Cardiovascular: Sinus bradycardia normal S1-S2, 2/6 systolic murmur of aortic stenosis Abdomen: Soft, nontender, nondistended, normoactive bowel sounds Extremities: No cyanosis, clubbing, or edema present. Pulses are palpable 2/2. Neuro: Patient is awake, alert, oriented x3, answers to questions appropriately, follows simple commands in all extremities Skin: Warm, dry, and intact, without rash, erythema, or lesion. Psych: Normal mentation and affect Objective Data Vital Signs Vital Signs: Vital Signs - 24 hr 08/19/24 20:00 08/19/24 20:45 08/20/24 05:58 Temperature 98.0 F 98.6 F Pulse Rate 93 73 Respiratory Rate 16 16 Blood Pressure 126/52 L 124/63 Pulse Oximetry 100 100 Oxygen Delivery Room Air 08/20/24 08:00 08/20/24 09:35 08/20/24 09:50 Temperature 98.6 F Pulse Rate 69 71 Respiratory Rate 16 Blood Pressure 162/72 H 139/70 Pulse Oximetry 99 Oxygen Delivery Room Air 08/20/24 10:00 08/20/24 10:15 08/20/24 10:30 Temperature Pulse Rate 71 75 73 Respiratory Rate Blood Pressure 135/69 141/74 H 136/69 Pulse Oximetry Oxygen Delivery 08/20/24 10:45 08/20/24 11:00 08/20/24 11:15 Temperature Pulse Rate 72 72 72 Respiratory Rate Blood Pressure 126/67 133/70 126/67 Pulse Oximetry Oxygen Delivery 08/20/24 11:30 08/20/24 11:45 08/20/24 12:00 Temperature Pulse Rate 69 74 72 Respiratory Rate Blood Pressure 125/65 119/66 115/64 Pulse Oximetry Oxygen Delivery 08/20/24 12:15 08/20/24 12:30 08/20/24 12:45 Temperature Pulse Rate 73 75 76 Respiratory Rate Blood Pressure 125/66 123/64 116/64 Pulse Oximetry Oxygen Delivery 08/20/24 13:00 08/20/24 13:15 08/20/24 13:33 Temperature Pulse Rate 76 67 73 Respiratory Rate Blood Pressure 117/59 L 116/64 144/60 H Pulse Oximetry Oxygen Delivery 08/20/24 13:38 08/20/24 14:00 Temperature 98.6 F Pulse Rate 76 74 Respiratory Rate 12 Blood Pressure 115/60 115/60 Pulse Oximetry 99 95 Oxygen Delivery Intake/Output Intake/Output: Intake & Output 08/17/24 08/18/24 08/19/24 08/20/24 23:59 23:59 23:59 23:59 Intake Total 3118 747 9869 240 Output Total 3000 0 4000 Balance 1030 -2160 1040 -3760 Meds/Results Medications: Active Medications Generic Name Dose Route Start Last Admin Trade Name Freq PRN Reason Stop Dose Admin Filgrastim-Sndz 300 mcg 08/19/24 09:00 08/20/24 08:23 Filgrastim-Sndz 300 Mcg/0.5 Ml Syringe SUB-Q 300 mcg DAILY DARWIN Administration Furosemide 20 mg 08/13/24 09:00 08/20/24 08:18 Furosemide 20 Mg Tablet PO 20 mg DAILY DARWIN Administration Albumin Human 50 mls @ 999 mls/hr 08/14/24 06:16 Albutein IVPB 09/13/24 06:15 Q10M PRN HYPOTENSION Lactulose 20 gm 08/14/24 13:00 08/20/24 14:16 Lactulose 20 Gm/30 Ml Udc PO 20 gm TID DARWIN Administration Levetiracetam 750 mg 08/14/24 21:00 08/20/24 08:18 Levetiracetam 250 Mg Tablet PO 750 mg Q12HR DARWIN Administration Levofloxacin 500 mg 08/20/24 16:00 Levofloxacin 500 Mg Tablet PO Q48H DARWIN Melatonin 3 mg 08/13/24 21:00 08/19/24 22:02 Melatonin 3 Mg Tablet PO 3 mg HS DARWIN Administration Pantoprazole Sodium 40 mg 08/13/24 09:00 08/20/24 08:18 Pantoprazole 40 Mg Tablet PO 40 mg DAILY DARWIN Administration Sevelamer Carbonate 1,600 mg 08/13/24 09:00 08/20/24 14:16 Sevelamer Carbonate 800 Mg Tablet PO 1,600 mg TID DARWIN Administration Radiology Results: ITS Impressions Head/Neck CTA 08/12/24 09:20 IMPRESSION: 1. Normal brain. 2. No aneurysm or significant intracranial arterial stenosis. 3. 0% stenosis of the proximal internal carotid arteries relative to normal distal artery lumen diameters (NASCET criteria). Chest X-Ray 08/12/24 09:29 IMPRESSION: 1. No acute cardiopulmonary disease. Brain MRI 08/12/24 21:15 IMPRESSION: No acute cerebral infarction. No acute or subacute hemorrhage. Multiple foci of increased T2-weighted signal abnormalities within the periventricular white matter, suggesting demyelination. Knee X-Ray 08/13/24 11:13 Impression: No acute abnormality. Stable degenerative change and small joint effusion. Head CT 08/14/24 09:09 IMPRESSION: 1. Normal brain. Abdomen X-Ray 08/14/24 09:56 IMPRESSION: 1. Nasogastric tube tip in the stomach. Labs Labs: Laboratory Results - last 24 hr 08/20/24 08/20/24 09:50 13:27 WBC 2.9 L RBC 2.34 L Hgb 7.9 L Hct 24.5 L MCV 104.7 H MCH 33.8 MCHC 32.2 RDW 15.8 H Plt Count 23 L* MPV 10.4 Immature Gran % (Auto) 1.0 H Neut % (Auto) 71.8 Lymph % (Auto) 16.4 L [place] % (Auto) 7.3 Eos % (Auto) 2.8 Baso % (Auto) 0.7 Lymph # (Auto) 0.47 L [place] # (Auto) 0.2 Eos # (Auto) 0.1 Baso # (Auto) 0.0 Abs Immat Gran (auto) 0.03 Absolute Neuts (auto) 2.1 Absolute Nucleated RBC 0.000 Band Neutrophils % Not Reportable Nucleated RBC % 0.0 Platelet Estimate Decreased % Immature Plt Fraction 3.7 Anisocytosis 1+ Schistocytes None seen Sodium 136 L Potassium 3.9 Chloride 98 Carbon Dioxide 28 Anion Gap 10 BUN 31 H Creatinine 7.29 H Estim Creat Clear Calc 11 Estimated GFR 8 L Glucose 113 H Lactic Acid 2.1 H 2.5 H Calcium 9.8 Magnesium 2.2 Total Bilirubin 0.9 AST 30 ALT 16 Alkaline Phosphatase 203 H Ammonia 20 15 Total Protein 6.0 L Albumin 2.8 L Quality VTE Prophylaxis VTE prophylaxis: mechanical ordered
[2024-08-20] MEDS: levoFLOXacin 500 MG TABLET PO (16:08)
[2024-08-20] MEDS: MELATONIN 3 MG TABLET PO (21:24)
[2024-08-21 05:15] VITALS: BP 132/61; PULSE 79; RESP 16; TEMP 37; O2SAT 99
[2024-08-21 07:40] LABS: Basophils Percent Auto 0.6 % (0.2-1.2); Eosinophils Absolute Auto 0.1 K/mm3 (0-0.3); Eosinophils Percent Auto 2.6 % (0-4.4); Hemoglobin 8.1 g/dL (14.0-18.0); Immature Granulocyte Absolute 0.24 K/mm3 (0.00-0.031); Immature Platelet Fraction Pct 4.7 % (0.9-11.2); Lymphocytes Absolute Auto 0.66 K/mm3 (0.9-3.2); Lymphocytes Percent Auto 19.1 % (18.3-44.2); Mean Corpuscular HGB Conc 31.2 g/dl (32-36); Mean Corpuscular Hemoglobin 33.5 pg (26-34); Mean Corpuscular Volume 107.4 fl (80-100); Mean Platelet Volume 10.7 fl (7.4-10.4); Monocytes Absolute Auto 0.3 K/mm3 (0.1-0.6); Monocytes Percent Auto 8.1 % (2.6-8.5); Neutrophils Absolute Auto 2.2 K/mm3 (1.3-6.7); Neutrophils Percent Auto 62.6 % (45.5-73.1); Red Blood Count 2.42 M/mm3 (4.6-6.20); Red Cell Distribution Width 16.2 % (11.5-14.5); White Blood Count 3.5 K/mm3 (4.5-10.0)
[2024-08-21 07:49] LABS: Alanine Aminotransferase 20 U/L (6-50); Albumin Level 2.9 g/dL (3.5-5.1); Alkaline Phosphatase 203 U/L (38-126); Anion Gap 9 mmol/L (4-12); Aspartate Amino Transferase 33 U/L (17-59); Bilirubin,Total 0.9 mg/dL (0.2-1.3); Blood Urea Nitrogen 30 mg/dL (9-20); Calcium 9.7 mg/dL (8.4-10.2); Carbon Dioxide 27 mmol/L (22-30); Chloride 99 mmol/L (98-107); Estimated CRCL calculation 15 ml/min; Estimated Glomerular Filt Rate 12; Glucose 97 mg/dL (65-110); Magnesium 1.9 mg/dL (1.6-2.3); Potassium 4.3 mmol/L (3.4-5.0); Sodium 135 mmol/L (137-145)
[2024-08-21 07:50] LABS: INR 1.7; Prothrombin Time 20.3 Seconds (11.1-14.7)
[2024-08-21 08:21] LABS: Platelet Count Result 22 k/mm3 (150-375)
[2024-08-21 08:22] LABS: Platelet Estimate Decreased (Adequate)
[2024-08-21 08:23] LABS: Anisocytosis 1+; Ovalocytes 1+; Schistocytes None Seen
[2024-08-21] MEDS: levETIRAcetam 250 MG TABLET 750 MG PO (09:07)
[2024-08-21] MEDS: LACTULOSE 20 GM/30 ML UDC PO ×2 (09:08→12:35)
[2024-08-21] MEDS: FUROSEMIDE 20 MG TABLET PO (09:08)
[2024-08-21] MEDS: SEVELAMER CARBONATE 800 MG TABLET 1600 MG PO ×2 (09:08→12:35)
[2024-08-21] MEDS: PANTOPRAZOLE 40 MG TABLET PO (09:08)
[2024-08-21] MEDS: FILGRASTIM-SNDZ 300 MCG/0.5 ML SYRINGE SUB-Q (09:13)
--- NOTE | 2024-08-21 13:33 | P.DS_ITS ---
DS: Admitting Diagnosis Discharge Date 08/21/2024 Admitting Diagnosis Altered mental status DS: Discharge Diagnosis Discharge Diagnosis (1) Thrombocytopenia: Code(s): D69.6 - Thrombocytopenia, unspecified Status: Acute (2) Cirrhosis: Code(s): K74.60 - Unspecified cirrhosis of liver Status: Acute (3) Anemia: Code(s): D64.9 - Anemia, unspecified Status: Chronic (4) Pancytopenia: Code(s): D61.818 - Other pancytopenia Status: Acute (5) Encephalopathy acute: Code(s): G93.40 - Encephalopathy, unspecified Status: Resolved DS: Summary Hospital Course Hospital Course: 58-year-old male with past medical history of alcoholic cirrhosis, esophageal varices, pancytopenia, seizures, end-stage renal disease on dialysis, presents the hospital with altered mental status. Patient states that he remembers going to dialysis and then woke up in ICU room. He states that he does have a history of having seizures after dialysis, and is on 750 mg Keppra b.i.d.. Patient is A&O x4 with no complaints at this current time. According to patient's friend he was at normal mentation when he was dropped off at dialysis. Dialysis he had about 3-4 L taken off. When the friend came back to pick him up, he was lethargic was not acting normal so he brought him to the hospital. Ammonia level 69, UA pending, urine toxicology negative, ethanol level negative, head CT negative for acute processes, chest x-ray negative for acute processes. In EKG shows sinus bradycardia with first-degree AV block which was seen previously on other EKGs. Patient being admitted for altered mental status, due to possibility of seizure given loading dose of Keppra 1 g. Patient was started on Lactulose and and ammonia improved markedly to 15. Continue Dialysis per nephrology. Noted he ambulates with walker and he is at baseline now. oncology was consulted for pancytopenia, he was evaluated adn was noted to be related to liver cirrhosis. started on Filgastrium and WBC improved to 3.5, Hb stable at 8.1 and plts 22. discussed with oncology and he noted that patient plts baseline is 20s to 30s and he follows closely with onoclogy in [facility], and he will follow up with him also for putpatietn monitoring. repeat cbc 08/25/24. Contineu dialysis as scheduled. cotnneu other home meds F/u wtih PCP in 3-5 days, oncology and Nephrology as instructed Contineu follow up at [facility] with tranplant team Time Spent with Patient Time attestation: Total time spent providing and/or coordinating discharge services: DS: Data Data Completed and Pending Labs on day of discharge: Labs from last 24 hours 08/21/24 08/20/24 07:10 13:27 WBC 3.5 L RBC 2.42 L Hgb 8.1 L Hct 26.0 L MCV 107.4 H MCH 33.5 MCHC 31.2 L RDW 16.2 H Plt Count 22 L* MPV 10.7 H Immature Gran % (Auto) 7.0 H Neut % (Auto) 62.6 Lymph % (Auto) 19.1 [place] % (Auto) 8.1 Eos % (Auto) 2.6 Baso % (Auto) 0.6 Lymph # (Auto) 0.66 L [place] # (Auto) 0.3 Eos # (Auto) 0.1 Baso # (Auto) 0.0 Abs Immat Gran (auto) 0.24 H Absolute Neuts (auto) 2.2 Absolute Nucleated RBC 0.000 Band Neutrophils % Not Reportable Nucleated RBC % 0.0 Platelet Estimate Decreased % Immature Plt Fraction 4.7 Anisocytosis 1+ Ovalocytes 1+ Schistocytes None seen PT 20.3 H INR 1.7 Sodium 135 L Potassium 4.3 Chloride 99 Carbon Dioxide 27 Anion Gap 9 BUN 30 H Creatinine 5.10 H Estim Creat Clear Calc 15 Estimated GFR 12 L Glucose 97 Lactic Acid 2.5 H Calcium 9.7 Magnesium 1.9 Total Bilirubin 0.9 AST 33 ALT 20 Alkaline Phosphatase 203 H Ammonia 15 Total Protein 6.0 L Albumin 2.9 L Discharge Plan Discharge Attending physician on discharge: Kristopher Mosquera Consulting providers: Ryan Ace; Arnav Holman; Remington Pizano; Chitra Dill Discharging Clinician: Kristopher Mosquera Anticipated Discharge Date/Time: 08/21/24 13:23 Patient Disposition: Home, Self-Care Activity: as tolerated Diet: low sodium Discharge Instructions: Call Dr Holman's office for appointment Phone number [phone] Patient Instructions: Antibiotic Form Patient Language: Maori Stand Alone Forms: General Discharge Information Follow-up/Referrals: Arnav Holman MD [Physician] - (F/u with Dr Holman as instructed ) Chitra Dill MD [Physician] - (F/u with nephrology as instructed ) Ryan Ace MD [Physician] - (F/u wt neurology as instructed ) Efren Ramirez, [Primary Care Provider] - (F/u with PCP in 3-5 days ) Discharge Medications: New spironolactone 50 mg tablet 50 mg PO DAILY 30 Days Qty: 30 0RF Continued melatonin 3 mg tablet 3 mg PO HS sevelamer carbonate 800 mg tablet 1,600 mg PO TID Patient Comments: Take 2-3 tabs with every meal and 1 with a snack. Rx Instructions: must administer with a meal/food nadolol 20 mg tablet 20 mg PO DAILY Qty: 30 0RF levetiracetam 750 mg tablet 750 mg PO Q12H 30 Days Qty: 60 1RF furosemide 80 mg tablet 80 mg PO BID Qty: 180 3RF Patient Comments: patient dose is changed to 20mg once per day. pantoprazole 40 mg tablet,delayed release (DR/EC) See Rx Instructions .ROUTE .COMPLEX Qty: 90 3RF Dose Instruction: TAKE 1 TABLET BY MOUTH DAILY Rx Instructions: TAKE 1 TABLET BY MOUTH DAILY Changed lactulose 20 gram/30 mL solution 20 g PO TID 30 Days Qty: 0 0RF Patient Comments: currently takes 30mL/TID Rx Instructions: I wrote that odd number because pt wants to have 3 bottles at a time. I believe a bottle is 473ml. Other Ambulatory Orders: Complete Blood Count with Diff (Routine) Timeframe: 20240825 Location: Determined by Patient Ordered By: Kristopher Mosquera Date of admission: 08/12/24 10:13 Primary Care Provider: Efren Ramirez Admitting Provider: Louisa Mcduffie Attending physician on admission: Louisa Mcduffie Condition: Serious
[2024-08-21 14:00] VITALS: BP 128/57; PULSE 72; RESP 16; TEMP 36.5; O2SAT 100
== END 2024-08-21 15:45 | disposition home or self-care (01) | DRG 441 ==
LOC: ANHED 10:18 → ANHIMU 11:19 → ANHICU 14:35 → ANH3MEDSUR 08-16 04:45
PROVIDERS: General Practice; Internal Medicine; Internal Medicine Hematology & Oncology; Internal Medicine Nephrology; Nurse Practitioner Gerontology; Admitting Provider Hospitalist; Emergency Provider Emergency Medicine; PCP Internal Medicine; Visit Provider Internal Medicine
DX: K76.82 Hepatic encephalopathy (principal); N18.6 End stage renal disease; I85.10 Secondary esophageal varices without bleeding; N05.5 Unspecified nephritic syndrome with diffuse mesangiocapillary glomerulonephritis; D61.818 Other pancytopenia; K70.30 Alcoholic cirrhosis of liver without ascites; N25.0 Renal osteodystrophy; D69.6 Thrombocytopenia, unspecified; D63.1 Anemia in chronic kidney disease; M25.561 Pain in right knee; R56.9 Unspecified convulsions; Z99.2 Dependence on renal dialysis
CPT/HCPCS: 36415; 70450; 70496; 70498; 70553; 71045; 73562; 80053; 80069; 80307; 82077; 82140; 82607; 82668; 82728; 82746; 82948; 83540; 83550; 83605; 83735; 84100; 85025; 85027; 85046; 85055; 85380; 85610; 85730; 86706; 87340; 87641; 93005; 97110; 97116; 97161; 97165; 97530; 99285; A9270; A9577; G0257; J1953; J7030; Q4081; Q5101; Q5105; Q9967

== ENCOUNTER 2024-10-13 14:57 | Inpatient (IN) | payer MEDICARE, SELFPAY ==
--- NOTE | ~2024-10-13 | MR_ITS ---
MRI of the brain Clinical History: Altered mental status, slurred speech Technique: Axial and sagittal T1-weighted images were acquired. These were followed by axial T2-weigh chris, diffusion weighted, gradient, and FLAIR images. COMPARISON: 08/12/2024 Findings: No acute infarct, hemorrhage, mass lesion seen. Multiple hyperintense white matter lesions are present, predominantly in the superior frontal lobes, unchanged. Ventricles and subarachnoid spaces are unremarkable. Orbits are unremarkable. Paranasal sinuses and m astoid air cells are clear. Major intracranial flow voids are intact. Sagittal midline structures are intact. IMPRESSION: No acute abnormality. White matter lesions are unchanged, which could represent chronic microvascular ischemic change versu s possibly demyelinating disease. Reviewed, dictated and finalized at location M. IMPRESSION: No acute abnormality. White matter lesions are unchanged, which could represent chronic microvascular ischemic change versus possibly demyelinating disease.
--- NOTE | ~2024-10-13 | CT_ITS ---
CT brain wo con Ordering provider: Luis Bocanegra MD History: 58 years Male with . Confusion . Comparison: None. Technique: CT of the head without contrast. Radiation reduction technique utilized. The dose-length p roduct was 681 mGy-cm. FINDINGS: BRAIN PARENCHYMA AND CSF SPACES: No midline shift, mass effect or hemorrhage. The brain parenchyma a nd CSF spaces are otherwise normal. VISUALIZED PARANASAL SINUSES: Bilateral maxillary sinus disease. Well aerated. MASTOIDS: Well aerated. BONES: Normal. Posterior arch of C1. The bones appear intact. SOFT TISSUES: Visualized nasopharynx is normal. Superficial soft tissues are normal. IMPRESSION: No acute intracranial findings. Reviewed, dictated and finalized at location A.
--- NOTE | ~2024-10-13 | XR_ITS ---
XR chest 1V Ordering provider: Luis Bocanegra MD History: 58 years Male with . Confused . Comparison: August 12, 2024 FINDINGS: MEDIASTINUM: The cardiac silhouette is not enlarged. LUNGS: No infiltrates, effusions or pneumothorax. Prominent bronchovascular markings in the lower lobes areas. OTHER: No free air under the diaphragm. IMPRESSION: No acute cardiopulmonary pathology. Reviewed, dictated and finalized at location A.
[2024-10-13 15:06] VITALS: BP 145/59; PULSE 60; RESP 18; TEMP 36.3; O2SAT 99
[2024-10-13 16:10] VITALS: O2SAT 98
[2024-10-13 16:11] VITALS: BP 150/68; PULSE 58; RESP 12; O2SAT 98
--- NOTE | 2024-10-13 16:16 | ECG_ITS ---
Test Date: 2024-10-13 17:32:56 Measurements Intervals [place] Rate: 58 P: 19 CT: 214 QRS: 36 QRSD: 94 T: 47 QT: 484 QTc: 478 Interpretive Statements SINUS BRADYCARDIA WITH FIRST DEGREE AV BLOCK INCOMPLETE RIGHT BUNDLE BRANCH BLOCK MINIMAL Q WAVES- LATERAL LEADS BORDERLINE ECG Compared to ECG 08/12/2024 09:03:27 NO SIGNIFICANT CHANGE Electronically Signed On 10-13-2024 19:57:20 CDT by Refugio Cano D.O.
--- NOTE | 2024-10-13 16:17 | ED_ITS ---
HPI - Altered Mental Status General Chief Complaint: Altered Mental Status Stated Complaint: AMS, slurred speech after dialysis Time Seen by Provider: 10/13/24 16:15 Source: patient and EMS Mode of arrival: EMS Limitations: no limitations and clinical condition History of Present Illness HPI narrative: 58 years old white male came to the ED by ambulance after finishing dialysis with confusion and slurred speech. Patient lives alone, drove himself to the dialysis this morning, after finishing dialysis patient was wondering in the parking lot, does not know how to get to his car, his friend came over and noticed that the patient have slurred speech which gradually getting slightly better on arrival to the ED. Patient is awake, alert oriented x4 denying any symptoms. History of liver cirrhosis, last alcohol intake over 4 years ago, history of hypertension, patient denied smoking drinking or drug use. Related Data Home Medications ?Medication ?Instructions ?Recorded ?Confirmed ?Last Taken ?Type melatonin 3 mg tablet 3 mg PO HS Sleep 03/27/24 08/12/24 Unknown History Allergies Allergy/AdvReac Type Severity Reaction Status Date / Time No Known Allergies Allergy Unknown Verified 08/12/24 11:26 Review of Systems 2 Review of Systems: All systems reviewed & are unremarkable except as noted in HPI and below PMFSH Past Medical History Medical History Esophageal varices in alcoholic cirrhosis Facial hematoma Pancytopenia Seizure Cirrhosis, alcoholic Acute respiratory failure Cirrhosis Renal osteodystrophy Erythropoietin deficiency anemia Thrombocytopenia Coagulopathy Encephalopathy, hepatic Alcoholic liver failure ESRD needing dialysis Surgical History Surgical History H/O cataract removal with insertion of prosthetic lens History of vasectomy Status post biopsy of kidney Family History Family History Father Colon cancer Dementia Social History Social History Social History: Caffeine-tea Smoking status: Never smoker Alcohol intake: never Alcohol use details: none since04/11/21 Substance use: never Substance use type: does not use Do You Feel Safe in your Home?: Yes Lack of Transportation: No Lack of Food: Never True Current Housing: I Have Housing Concerned About Future Housing: No Difficulty Paying Gas/Electric Bills: No Difficulty Paying for Meds: No Currently Unemployed: No Education: Master's Degree or Higher Difficulty w/ Childcare or Family Care: No Spiritual care concerns: No Exam 2 Narrative: General appearance: Well-developed, well-nourished Skin: Normal color Head: Normocephalic, nontraumatic Eyes: Clear conjunctiva ENT: Oropharynx normal, ears normal, nose normal Neck: Supple, nontender Chest and respiratory: Airway patent, no respiratory distress, no accessory muscle use Heart: Regular rate/rhythm Abdomen: Soft, nontender, no organomegaly, quiet bowel sounds Vascular: Normal peripheral pulses, normal capillary refill. Musculoskeletal: Normal range of motion, nontender back Neurologic: Alert and oriented ?3, TYPING POOL SUPERVISOR is normal as tested, no gross motor deficit Course Consultations Consultation #1: DR MERCER ADMIT TO HOSPITALIST Date: 10/13/24 Time: 18:44 Vital Signs Vital signs: Vital Signs Temperature 36.3 C L 10/13/24 15:06 Pulse Rate 60 10/13/24 15:06 Respiratory Rate 18 10/13/24 15:06 Blood Pressure 145/59 H 10/13/24 15:06 Pulse Oximetry 99 10/13/24 15:06 Oxygen Delivery Room Air 10/13/24 15:06 Temperature 36.3 C L 10/13/24 15:06 Pulse Rate 58 L 10/13/24 16:11 Respiratory Rate 12 10/13/24 16:11 Blood Pressure 150/68 H 10/13/24 16:11 Pulse Oximetry 98 10/13/24 16:11 Oxygen Delivery Room Air 10/13/24 16:10 MDM - Altered Mental Status MDM Narrative Medical decision making narrative: Patient came to the ED after finishing dialysis with confusion and slurred speech Vital signs are stable Physical examination is unremarkable Differential diagnosis include TIA, post dialysis complication, mild hepatic encephalopathy Blood workup today includes CBC, CMP, ammonia level showed WBC of 1.8, history of leukocytosis, hemoglobin 8.9, PT 18.3, P and 34 creatinine 4.3, ammonia level 49 Chest x-ray showed no acute abnormalities, CT scan of the head without contrast showed no acute abnormalities. Admit to hospitalist, discussed with Dr. williamson ,dr freitas Differential Diagnosis Differential diagnosis: Likely other (As above) Medical Records Attestation: I reviewed the patient's medical records. Lab Data Attestation: I reviewed the patient's lab results. 10/13/24 16:43 10/13/24 16:43 Labs: Lab Results 10/13/24 Range/Units 16:43 WBC 1.8 L* (4.5-10.0) K/mm3 RBC 2.77 L (4.6-6.20) M/mm3 Hgb 8.9 L (14.0-18.0) g/dL Hct 27.6 L (42.0-52.0) % MCV 99.6 (80-100) fl MCH 32.1 (26-34) pg MCHC 32.2 (32-36) g/dl RDW 14.1 (11.5-14.5) % Plt Count 25 L (150-375) k/mm3 MPV 11.7 H (7.4-10.4) fl Immature Gran % (Auto) Not Reportable Neut % (Auto) Not Reportable Lymph % (Auto) Not Reportable Toombs % (Auto) Not Reportable Eos % (Auto) Not Reportable Baso % (Auto) Not Reportable Lymph # (Auto) Not Reportable [place]ombs # (Auto) Not Reportable Eos # (Auto) Not Reportable Baso # (Auto) Not Reportable Abs Immat Gran (auto) Not Reportable Absolute Neuts (auto) Not Reportable Absolute Nucleated RBC Not Reportable Total Counted 100 Neutrophils % (Manual) 67 (46-73) % Band Neutrophils % 1 (0-6) % Lymphocytes % (Manual) 26.0 (18-44) % Monocytes % (Manual) 3 (3-9) % Eosinophils % (Manual) 2 (0-4) % Basophils % (Manual) 1 (0-1) % Nucleated RBC % Not Reportable Abs Neuts (Manual) 1.22 L (1.3-6.7) K/mm3 Abs Lymphs (Manual) 0.46 L (1.1-4.5) K/mm3 Abs Monocytes (Manual) 0.05 L (0.1-0.90) K/mm3 Absolute Eos (Manual) 0.03 (0.02-0.50) K/mm3 Abs Basophils (Manual) 0.01 (0.0-0.1) K/mm3 Platelet Estimate Decreased (Adequate) % Immature Plt Fraction 5.4 (0.9-11.2) % Hypochromasia 1+ Schistocytes None seen PT 18.3 H (11.1-14.7) Seconds INR 1.5 APTT 35.8 (22.3-36.8) Seconds Sodium 136 L (137-145) mmol/L Potassium 4.0 (3.4-5.0) mmol/L Chloride 99 (98-107) mmol/L Carbon Dioxide 28 (22-30) mmol/L Anion Gap 9 (4-12) mmol/L BUN 34 H (9-20) mg/dL Creatinine 4.35 H (0.7-1.3) mg/dL Estim Creat Clear Calc 17 ml/min Estimated GFR 14 L (59 - ) Glucose 91 (65-110) mg/dL Calcium 9.3 (8.4-10.2) mg/dL Total Bilirubin 1.2 (0.2-1.3) mg/dL AST 25 (17-59) U/L ALT 16 (6-50) U/L Alkaline Phosphatase 169 H (38-126) U/L Ammonia 49 H (9-30) umol/L Troponin I 0.016 (0.000-0.034) ng/mL Total Protein 7.0 (6.3-8.2) g/dL Albumin 3.7 (3.5-5.1) g/dL Imaging Data Radiologist's impression: Impressions Head CT 10/13/24 17:06 IMPRESSION: No acute intracranial findings. Chest X-Ray 10/13/24 17:16 IMPRESSION: No acute cardiopulmonary pathology. Discharge Plan Discharge Patient Disposition: Still a Patient Instructions: Antibiotic Form Patient Language: Armenian Prescriptions: No Action melatonin 3 mg tablet 3 mg PO HS lactulose 20 gram/30 mL solution 20 g PO TID 30 Days Qty: 0 0RF Patient Comments: currently takes 30mL/TID Rx Instructions: I wrote that odd number because pt wants to have 3 bottles at a time. I believe a bottle is 473ml. spironolactone 50 mg tablet 50 mg PO DAILY 30 Days Qty: 30 0RF levetiracetam 750 mg tablet 750 mg PO Q12H 30 Days Qty: 60 1RF furosemide 80 mg tablet 80 mg PO BID Qty: 180 3RF Patient Comments: patient dose is changed to 20mg once per day. pantoprazole 40 mg tablet,delayed release (DR/EC) See Rx Instructions .ROUTE .COMPLEX Qty: 90 3RF Dose Instruction: TAKE 1 TABLET BY MOUTH DAILY Rx Instructions: TAKE 1 TABLET BY MOUTH DAILY nadolol 20 mg tablet See Rx Instructions .ROUTE .COMPLEX Qty: 90 3RF Dose Instruction: TAKE 1 TABLET BY MOUTH EVERY DAY Rx Instructions: TAKE 1 TABLET BY MOUTH EVERY DAY hydralazine 25 mg tablet See Rx Instructions .ROUTE .COMPLEX Qty: 270 0RF Dose Instruction: TAKE 1 TABLET BY MOUTH THREE TIMES DAILY Rx Instructions: TAKE 1 TABLET BY MOUTH THREE TIMES DAILY Follow-up/Referrals: Efren Rmairez, DO [Primary Care Provider] - Quality Stroke Scale Stroke Scale 1: 1a Level of consciousness: alert-0 1b Level of consciousness questions: answers both correctly-0 1c Level of consciousness commands: obeys both correctly-0 2 Best gaze: normal-0 3 Visual: no visual loss-0 4 Facial palsy: normal-0 5a Motor: left arm: no drift-0 5b Motor: right arm: no drift-0 6a Motor: left leg: no drift-0 6b Motor: right leg: no drift-0 7 Limb ataxia: absent-0 8 Sensory: normal-0 9 Best language: no aphasia-0 10 Dysarthria: normal-0 11 Extinction and inattention: no abnormality-0 Level:: 0
--- OUTSIDE RECORDS SUMMARY | 2024-10-13 16:48 | XMS_ITS | Encounter Summary ---
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 Not hard at all 06/12/2024 PHQ-2 Answer Date Recorded Patient Health Questionnaire-2 Score 1 09/10/2024 [facility] - [...] place to sleep or slept in a skilled nursing (including now)? No 11/01/2023 Housing Stability Vital Sign Answer Armaan e Recorded In the last 12 months, was t here a time when you were not able to pay the mortgage or rent on time? No 06/12/2024 In the past 12 months, how m any times have you moved where you were living? 0 06/12/2024 At any time in the past 12 m [facility], were you homeless or living in a skilled nursing (including now)? No 06/12/2024 Sex and Gender Information Value Date Recorded Sex Assigned at Not on file Legal Sex Male 7:16 PM CDT Gender Identity Not on file Sexual Orientation Not on file documented as of this encounter Functional Status * Is person deaf or have serious hearing difficulty? Answer Date of Assessment Author No 06/12/2024 12:24 AM Hailey Sanders RN * Is person blind or have serious difficulty seeing? Answer Date of Assessment Author No 06/12/2024 12:24 AM Hailey Sanders RN * Does person have serious difficulty walking/climbing stairs? Answer Date of Assessment Author No 06/12/2024 12:24 AM Hailey Sanders RN * Does person have difficulty dressing/bathing? Answer Date of Assessment Author No 06/12/2024 12:24 AM Hailey Sanders RN * Does person have difficulty doing errands alone? Answer Date of Assessment Author No 06/12/2024 12:24 AM Hailey Sanders RN documented as of this encounter Mental Status * Does person have difficulty concentrating/remembering/making decisions? Answer Entry Date Author No 06/12/2024 12:24 AM Hailey Sanders RN documented in this encounter Plan of Treatment Upcoming Encounters Date Type Department Care Team (Late st Contact Info) Description 05/18/2025 11:00 AM KILN REMOVER Office Visit [facility] - GI [address] [facility], [facility] [place] [id number] Melecio Graves MD [address] [place] [address] [place] [address] documented as of this encounter Goals Goal Patient Goal Type Associated Problems Recent Progress Patient-Stated? 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
--- OUTSIDE RECORDS SUMMARY | 2024-10-13 16:48 | XMS_ITS | Encounter Summary ---
Author Organization [facility] Address [address] [facility] [place] [address] Care Team Providers Care Atmospheric Drier Tender Name Role Phone Efren Ramirez DO Primary Care Provider Encounter Details Date Type Department Care Team (Late st Contact Info) Description 10/03/[address] [facility] TRANSPLANT [address] [place] [phone] Linh Forde, RN ESRD (end stage renal [...] Recorded Patient Health Questionnaire-2 Score 1 09/10/2024 [facility] - [...] place to sleep or slept in a long-term (including now)? No 11/01/2023 Housing Stability Vital Sign Answer Armaan e Recorded In the last 12 months, was t here a time when you were not able to pay the mortgage or rent on time? No 06/12/2024 In the past 12 months, how m any times have you moved where you were living? 0 06/12/2024 At any time in the past 12 m [facility], were you homeless or living in a long-term (including now)? No 06/12/2024 Sex and Gender [...] st Contact Info) Description 05/18/2025 11:00 AM ACOUSTIC SENSOR OPERATOR Office Visit [facility] - GI [address] [facility], [facility] [place] [phone] Melecio Graves MD [address] [place] [address] [place] [address] documented as of this encounter Goals Goal [...] listed documented in this encounter Care Teams Atmospheric Drier Tender Relationship Specialty Start Date End Date Efren Ramirez DO [address] [place] [address] PCP - General Internal Medicine 06/12/24 documented as of this encounter
--- OUTSIDE RECORDS SUMMARY | 2024-10-13 16:48 | XMS_ITS | Encounter Summary ---
Author Organization [facility] Address [address] [facility] [place] [address] Care Team Providers Care Credit Controller Name Role Phone Dm Pena MD Primary Care Provider Efren Ramirez DO Primary Care Provider [phone] Encounter Details Date Type Department Care Team (Late st Contact Info) Description 03/09/2020 Telephone [facility] [address] [place] [address] Kiko Pena MD [address] [place] [address] Social History Tobacco Use Types Packs/Day Years [...] difficulty? Answer Date of Assessment Author No 09/11/2019 4:14 PM CDT Heike Pizano RN * Is person blind or have serious difficulty seeing? Answer Date of Assessment Author No 09/11/2019 4:14 PM CDT Heike Pizano RN * Does person have serious difficulty walking/climbing stairs? Answer Date of Assessment Author No 09/11/2019 4:14 PM CDT Heike Pizano RN * Does person have difficulty dressing/bathing? Answer Date of Assessment Author No 09/11/2019 4:14 PM CDT Heike Pizano RN * Does person have difficulty doing errands alone? Answer Date of Assessment Author No 09/11/2019 4:14 PM DIOGENEST Heike Pizano RN documented as of this encounter Mental Status * Does person have difficulty concentrating/remembering/making decisions? Answer Entry Date Author No 09/11/2019 4:14 PM DIOGENEST Heike Pizano RN documented in this encounter Miscellaneous Notes * Telephone Encounter - Jyothi Melendez - 03/09/2020 9:18 AM CDT LM for patient to discuss details of surgery. Left call back number. documented in this encounter Plan of Treatment Upcoming Encounters Date Type Department Care Team (Late st Contact Info) Description 05/18/2025 11:00 AM COPPER PLATE LITHOGRAPHER Office Visit [facility] - GI [address] [facility] [place], [place] [phone] Melecio Graves MD [address] [place] [address] [place] [address] documented as of this encounter Visit Diagnoses Not on filedocumented in this encounter Additional Health Concerns Infection Onset Date Last Indicated Resolved Time COVID-19 Under Investigation 09/20/2020 09/20/2020 09/20/2020 10:10 PM CDT COVID-19 Under Investigation 07/19/2021 07/19/2021 07/19/2021 1:09 PM COPPER PLATE LITHOGRAPHER COVID-19 Confirmed 07/19/2021 07/19/2021 4:33 AM COPPER PLATE LITHOGRAPHER COVID-19 Under Investigation 10/29/2023 10/29/2023 10/29/2023 9:28 AM CDT COVID-19 Under Investigation 09/22/2024 09/22/2024 09/22/2024 12:05 PM CDT documented as of this encounter Care Teams Credit Controller Relationship Specialty Start Date End Date Dm Pena MD [address] [address] PCP - General Family Medicine 02/06/19 06/11/24 Efren Ramirez DO [address] [place] [address] PCP - General Internal Medicine 06/12/24 documented as of this encounter
--- OUTSIDE RECORDS SUMMARY | 2024-10-13 16:48 | XMS_ITS | Encounter Summary ---
Author Organization [facility] Address [address] [place] [id number] Phone Care Team Providers Care Hand Salter Name Role Phone Lonnie Schaefer DO Primary Care Provider [phone] Encounter Details Date Type Department Care Team (Late st Contact Info) Description 04/20/2022 [facility] [address] [facility], [address] [place] [address] Aleja Norris RN Social History Tobacco Use Types Packs/Day Years Used Date Smoking Tobacco: Never Smokeless Tobacco: Never Alcohol Use Standard Drinks/Week Comments Yes 0 (1 standard drink = 0.6 oz pure alcohol) Alcoholic Drinks/day: has recently quit, was a very heavy drinker Sex and Gender Information Value Date Recorded Sex Assigned at Not on file Legal Sex Male 7:57 AM [facility] Gender Identity Not on file Sexual Orientation [...] refill of his Xifaxan. Please send to cyndi casey. documented in this encounter Plan of Treatment Not on file documented as of this encounter Visit Diagnoses Not on filedocumented in this encounter Care Teams Hand Salter Relationship Specialty Start Date End Date Lonnie Schaefer DO [address] [facility] [address] [place] [address] [place] [address] PCP - General 02/21/19 documented as of this encounter
--- OUTSIDE RECORDS SUMMARY | 2024-10-13 16:49 | XMS_ITS ---
Author Organization [facility] Address [address] [place] [address] Care Team Providers Care Meat Molder Name Role Phone Dm Pena MD Primary Care Provider [phone] Sarah Jimenez RN Unavailable [phone] Hermelindo Avilez MD Unavailable [phone] Milla Calero RN Unavailable [phone] Melecio Graves MD Unavailable [phone] Nupur Shea RN Unavailable Unavailabl e Transplant Episode Kidney Candidate [facility] ([place], [place]) - [facility] Evaluation began on 09/30/2024 Marked as Active on 09/30/2024 Reason: Evaluation - Standard Kidney CoordinatorNupur Shea RN Phone: N/A Fax: N/A Email: N/A Scores Score Value Updated Exceptions/Reas ons CPRA Not available EPTS (Calc) 48 10/13/2024 [place] Organ 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
--- OUTSIDE RECORDS SUMMARY | 2024-10-13 16:49 | XMS_ITS | Clinical Summary ---
Author Organization [facility] Address [address] [place] [address] Phone Care Team Providers Care Airport Operations Manager Name Role Phone Unavailable Primary Care Provider [...] 12/07/2015 Zoster Immunization (1 of 2) 12/07/2015 Pneumococcal Immunization (5 0+ years) (2 of 2 - PCV) 11/02/2022 11/02/2021 Influenza Immunization (#1) 03/02/202403/03, 04/27/2017, 04/02/2015 SARS-COV-2 Immunization ( season) 2024 Respiratory Syncytial Virus (RSV) Immunization [...]
--- OUTSIDE RECORDS SUMMARY | 2024-10-13 16:49 | XMS_ITS | Clinical Summary ---
Author Organization [facility] [place] [facility] Address [address] [place] [address] Care Team Providers Care Draw Bench Operator Name Role Phone Dm Pena MD Primary Care Provider [phone] Sarah Jimenez RN Unavailable [phone] Hermelindo Avilez MD Unavailable [phone] Milla Calero RN Unavailable [phone] Melecio Graves MD Unavailable [phone] Nupur Shea RN Unavailable Unavailabl e Allergies Active Allergy Reactions Criticality Noted Date [...] Active Problems Problem Noted Date Diagnosed Date Encounter for pre-transplant evaluation for liver transplant 09/30/2024 End stage liver disease 09/22/2020 Alcoholic liver disease 06/30/2020 Alcohol dependence in remission 06/30/2020 Atrial flutter 06/30/2020 ESRD (end stage renal disease) 06/30/2020 MPGN (membranoproliferative glomerulonephritides ) 06/30/2020 Essential hypertension 06/30/2020 Male infertility, unspecified 01/19/2011 Encounters Date Type Department Care Team Description 10/09/2024 Telephone [facility] Transplant Kidney [id number] [place] [address] Nupur Shea RN 10/09/2024 Telephone [facility] Transplant Kidney [address] [id number] [place] [address] Nupur Shea RN 10/09/2024 Telephone [facility] Transplant Kidney [id number] [place] [address] Salena Mcdowell 10/08/2024 Telephone [facility] Transplant Liver [address] [id number] [place] [address] Milla Calero RN 10/06/2024 Telephone [facility] Transplant Liver [address] [id number] [place] [address] Mckenzie Ibarra 10/06/2024 Documentation [facility] Transplant Liver [address] [id number] [place] [address] Mckenzie Ibarra 10/06/2024 Documentation [facility] Transplant Liver [address] Mailstop [id number] [place] [address] Mckenzie Ibarra 10/03/2024 Telephone [facility] Transplant Kidney [address] [facility] [id number] [place] [address] YearNupur schroeder, RN 10/01/2024 Documentation [facility] Transplant Kidney [address] [facility] [id number] [place] [address] Ortbchandni, Salena 10/01/2024 Telephone [facility] Transplant Kidney [address] [facility] [address] Mailstop [phone] [place] [address] YearoutNupur, RN 10/01/2024 Documentation [facility] Transplant Kidney [address] [id number] [place] [address] Ortbchandni, Salena 09/30/2024 Telephone [facility] Transplant Liver [address] [id number] [place] [address] Milla Calero, DIVINE 09/30/2024 Telephone [facility] Transplant Liver [address] [facility] [address] [id number] [place] [address] Milla Calero, RN 09/30/2024 Telephone [facility] Transplant Kidney [id number] [place] [address] YearoutNupur, RN 09/30/2024 Telephone [facility] Transplant Kidney [address] [facility] [address] Mailstop [phone] [place] [address] YearNupur schroeder, RN 09/30/2024 Telephone [facility] Transplant Kidney [address] [phone] [place] [address] Denisse Gates Referral - Kidney Txp 09/30/2024 Telephone [facility] Transplant Liver [address] [facility] [address] Mailstop [phone] [place] [address] Milla Calero, RN 09/30/2024 Telephone [facility] Transplant Liver [address] [facility] [address] Mailstop [id number] [place] [address] Milla Calero, RN 09/25/2024 Telephone [facility] Transplant Liver [address] [facility] [address] Mailstop -02- [place] [address] Mckenzie Ibarra 09/22/2024 Telephone [facility] Transplant Liver [address] [facility] [address] Mail[address] [place] [address] Suzi Duque 09/15/2024 Telephone [facility] Transplant Liver [address] [facility] [address] Mailstop -[address] [place] [address] Milla Calero, RN 09/11/2024 Telephone [facility] Transplant Liver [address] [facility] [address] Mailstop -[address] [place] [address] Suzi Duque 09/10/2024 Documentation [facility] Transplant Liver [address] [facility] [address] Mailstop -[address] [place] [address] Milla Calero, RN 09/10/2024 Telephone [facility] Transplant Liver [address] [facility] [address] Mailstop [phone] [place] [address] Suzi Duque from Last 3 Months Surgical History Surgery Date Site/Laterality Comments SD VASECTOMY UNI/BI SPX W/PO STOP SEMEN EXAMS [...] di sease - membranoproliferative glomerulonephritis (Added by TALHA Conv) Personal history of other di seases of the circulatory system History of hypertension - (A dded by TALHA Conv) Family History Medical History Relation Name [...] often do you attend chur ch or adventism services? 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 file Not on file Not [...] 03/09/2021 8:37 AM CDT Plan of Treatment Scheduled Procedures Name Priority Associated Diagnoses Date/Ti me TRANSPLANT LIVER Encounter for pre-transplant evaluation for liver transplant Alcoholic liver disease Health Maintenance Due Date Last Done Comments Colon Cancer Screening-Colonoscopy 1965 Depression Screening 1965 Regular Well Visit/Exam 18-64 12/07/1983 Prostate Cancer Screening-PSA 09/22/2022 09/22/2020 Pneumococcal vaccine <65 (2 of 2 - PCV) 11/02/2022 11/02/2021 Zoster Vaccine (2 of 2) 01/08/2024 11/13/2023 Covid-19 Vaccine (2 - 2023-2 5 season) 2024 09/16/2020 Influenza Vaccine (Season Ended) 2025 03/28/2022, 05/31/2021, 04/06/2020, Additional history exists DTaP/Tdap/Td Vaccine (2 - Td or Tdap) 12/25/2027 12/24/2017 Hepatitis C Screening Completed 09/22/2020, 015 Procedures Procedure Name Priority Date/Time Associated Diagnosis Comments HEPATITIS C ANTIBODY Routine 09/22/2020 12:51 PM CDT Alcoholic liver disease PSA SCREEN Routine 09/22/2020 12:51 PM CDT Alcoholic liver disease from Last 3 Months or Most Recently Relevant to Health Maintenance Results * PSA screen (09/22/2020 12:51 PM CDT) PSA-Total 0.76 <=3.90 ng/mL [facility] Comment: Interpretive Data AGE SEX REFERENCE INTERVAL 0 minutes-150 years Female None 0 minutes-49 years Male None 50-59 years Male 0-3.90 60-69 years Male 0-5.40 70-79 years Male 0-6.20 80-150 years Male 0-6.20 Current interpretive data last revised 2018. Blood specimen (specimen) 09/22/2020 12:51 PM CDT 09/22/2020 1:40 PM CDT Dean Echols MD LAB BLOOD ORDERABLES F inal Result Performing Organization Address [facility]/ZIP Co de Phone Number [facility] Department [place] [address] * Hepatitis C antibody (09/22/2020 12:51 PM CDT) Pathologist [facility] Hep C Ab Nonreactive Nonreactive [facility] Comment:Antibodies to HCV no t detected. Does NOT exclude the possibility of recent exposure to HCV. Blood specimen (specimen) 09/22/2020 12:51 PM CDT 09/22/2020 1:40 PM CDT Dean Echols MD LAB MICROBIOLOGY - GEN ERAL ORDERABLES Edited Result - Final Performing Organization Address [facility]/ZIP Co de Phone Number [facility] [place] [address] from Last 3 Months or Most Recently Relevant to Health Maintenance Insurance [place] [employer] MEDICARE MEDICARE MEDICARE Care Teams Draw Bench Operator Relationship Specialty Start Date End Date Dm Pena MD [address] [place] [address] PCP - General 03/05/19 Sarah Jimenez RN [address] [address] Voip Network Technician 09/23/20 Hermelindo Avilez MD [address] [address] Referring Physician Nephrology 09/23/20 Milla Calero RN [address] [address] Voip Network Technician 09/10/24 Melecio Graves MD [facility] [place] [address] Referring Physician Internal Medicine 09/10/24 Nupur Shea dry cleaning machine operator helperVoip Network Technician 09/30/24
--- OUTSIDE RECORDS SUMMARY | 2024-10-13 16:49 | XMS_ITS ---
Author Organization [facility] at [facility] Address [address] [place] [address] Care Team Providers Care Waste Examiner Name Role Phone Dm Pena MD Primary Care Provider + [phone] Sarah Jimenez RN Unavailable [phone] Hermelindo Avilez MD Unavailable [phone] Milla Calero RN Unavailable [phone] Melecio Graves MD Unavailable [phone] Nupur Shea RN Unavailable Unavailabl e Transplant Episode Liver Candidate [facility] ([place], [place]) - [facility] Evaluation began on 09/30/2024 Marked as Active on 09/30/2024 Reason: Evaluation - Standard Liver CoordinatorMilla Calero RN Fax: N/A Email: N/A [place] Organ Diagnosis Organ Primary Contributory Liver Alcoholic Cirrhosis Care Team Name Role Phone Fax Email Milla Calero RN Liver Coordinator [phone] N/A N/A Melecio Graves MD Referring Physician [phone] N/A Milla Truong RN Secondary Coordinator N/A N/A N/A Mckenzie Ibarra Primary Recycling Sorter N/A N/A N/A Sena Luque Case Preparer And Liner [phone] N/A N/A Events Pre-Transplant Referred: 09/10/2024 Evaluation began: 09/30/2024 Dialysis History Dialysis History Start End Type Comments Center 03/14/2019 In-center Hemodialysis MWF 5:30AM-9A M [facility] Dialysis Center Information Center Phone Fax Address [facility] [phone] [address] [facility] [address]
--- OUTSIDE RECORDS SUMMARY | 2024-10-13 16:49 | XMS_ITS | Clinical Summary ---
Author Organization [facility] Address [address] [place] [address] Phone Care Team Providers Care Jet Wiper Name Role Phone SchaeferLonnie avalos Primary Care Provider [phone] Allergies No known active allergies Medications amLODIPine (NORVASC) 5 MG tablet Take 5 [...] night if needed Active ergocalciferol (VITAMIN D-2) 80698 units capsule Take 50,000 Units by mouth [...] disease, stage 3 (moderate) 05/15/2016 02/26/2019 Immunizations Immunization Administration Dates Next Due Influenza TIV (IM) [...] on file Legal Sex Male 7:57 AM [facility] Gender Identity Not on file Sexual [...] Due Date Last Done Comments Influenza Vaccine (Season Ended) 2025 04/27/20 17, 04/02/2015 Insurance [facility] Care Teams Jet Wiper Relationship Specialty Start Date End Date Lonnie Schaefer DO [address] [facility] [address] [place] [id number] PCP - General 02/21/19
--- OUTSIDE RECORDS SUMMARY | 2024-10-13 16:49 | XMS_ITS | Clinical Summary ---
Author Organization [facility] Address [facility] [place] [address] Care Team Providers Care Director Of Security Name Role Phone Dm Pena MD Primary Care Provider [phone] Allergies No known active allergies Medications melatonin [...] levETIRAcetam (KEPPRA) 750 MG tabletIndicatio ns:Seizure disorder ([facility]),Closed head injury, sequela Take 1 tablet (750 mg total) by mouth 2 (two) times daily. 60 tablet 3 03/16/2023 Active B Qurqjgq-F-Kcvta Acid (TRIPHROCAPS) 1 MG Cap Take 1 capsule by mouth daily. Active Active Problems Problem Noted Date Diagnosed Date Acute upper respiratory infection 07/05/2023 Non-recurrent unilateral ing uinal hernia without obstruction or gangrene 04/02/2023 Seizure disorder ([facility] H[facility]/HCC) 08/29/2022 Closed head injury, sequela 08/29/2022 Dyspepsia 08/29/2022 Senile cataract of right eye , unspecified age-related cataract type 11/02/2021 Renal hypertension 09/15/2021 Insomnia, unspecified type 03/02/2021 Erectile dysfunction, unspecified erectile dysfu nction type 04/26/2020 Acute pain of right knee 05/03/2019 Chronic renal failure 03/05/2019 Cirrhosis of liver with ascites ([facility] ) 03/05/2019 Pancytopenia 03/05/2019 Anemia in end-stage renal disease ([facility]) 02/26/2019 Hyperphosphatemia 02/26/2019 Metabolic acidosis 02/26/2019 Hyponatremia 02/06/2019 Portal hypertension ([facility]) 02/06/2019 Dyspnea 01/24/2019 Decompensated hepatic cirrhosis ([facility] ) 01/22/2019 Alcoholism ([facility]) 02/19/2015 Ascites 10/09/2014 Type 2 diabetes mellitus wit h chronic kidney disease, without long-term current use of insulin ([facility]) 09/14/2014 Overview (04/21/2019): Description: 04/2012 Gout 04/06/2014 Elevated liver enzymes 09/10/2013 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 Nephrotic syndrome 08/14/2013 Nephrolithiasis 08/14/2013 Obstructive sleep apnea 08/14/2013 Proteinuria 08/14/2013 Essential hypertension 08/02/2013 Overview (04/21/2019): Description: prior to 03/2003 Resolved Problems Problem Noted Date Diagnosed Date Resolved Date Acute upper respiratory infection 03/02/2021 01/25/2023 Peritonitis ([facility]) 04/18/2019 03/28/2022 SHIRA (acute kidney injury) 01/24/2019 Type 2 diabetes mellitus ([facility]) 08/14/2013 01/25/2023 Routine general medical exam ination at a health care facility 05/23/2013 01/29/2023 Immunizations Immunization Administration Dates Next Due Flublok (Quadrivalent) 03/28/2022 [...] 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 on file Not on file Last Filed Vital Signs Vital Sign [place] Time Taken Comments Blood Pressure 124/62 07/05/2023 1:07 PM SOFTWARE ENGINEERING ASSOCIATE MANAGER Pulse 57 12/05/2021 6:35 PM CDT Temperature 36.8 C (98.3 F) 08/29/2022 2:49 PM SOFTWARE ENGINEERING ASSOCIATE MANAGER Respiratory Rate 17 12/05/2021 6:35 PM CDT Oxygen Saturation 96% 12/05/2021 6:35 PM CDT Inhaled Oxygen Concentration - - Weight 81.2 kg (179 lb) 07/05/2023 1:07 PM SOFTWARE ENGINEERING ASSOCIATE MANAGER Height 175.3 cm (5' 9 ) 01/25/2023 1:06 PM CDT Body Mass Index 26.43 01/25/2023 1:06 PM CDT Plan of Treatment Health Maintenance Due Date Last Done Comments Diabetes: Retinopathy Eye Exam 12/07/1983 Hepatitis B Vaccines (2 of 3 - 19+ 3-dose series) 12/20/2019 11/22/2019 Zoster Vaccines (2 of 2) 01/08/2024 11/13/2023 Annual Physical 01/26/2024 01/25/2023, 0308/2021, 04/26/2020, Additional history exists COVID-19 Vaccine ( season) 2024 05/02/2022, 06/13/2021, 09/16/2020 Hemoglobin A1C 06/25/2024 12/25/2023, 06/0 01/2023, 11/02/2021, Additional history exists PHQ-2 ([facility] [place]) 07/02/2024 Lipid Panel 12/24/2024 12/25/2023, 01/2023, 09/09/2013 DTaP, Tdap and Td Vaccines (2 - Td or Tdap) 12/25/2027 12/24/2017 Colorectal Cancer Screening Colonoscopy (10 Years) 2031 12/05/2021, 12/05/2021, 03/02/2005 Pneumococcal Vaccine: Pediatrics (0 to 5 Years) and At-Risk Patients (6 to 49 Years) Completed 11/13/2023, 11/02/2021 Hepatitis C Completed [...] this topic Medical Devices Implanted Type Area Leadership Development Manager Device Identifier Shelf Expiration Date Model / Serial / Lot Port Procedures Procedure Name Priority Date/Time Associated Diagnosis Comments COLONOSCOPY Routine 12/05/2021 5:24 PM CDT HEMOGLOBIN, GLYCOSYLATED Routine 11/02/2021 10:05 AM CDT Type 2 diabetes mellitus without complication, without long-term current use of insulin LIPID PANEL Routine 09/09/2013 9:23 AM CDT [...] the left lateral decubitus position, the Olympus [id number] colonoscope was introduced into the rectum and [...] HGB A1C 4.8 4.2 - 6.5 % [facility] 11/02/2021 10:0 5 AM CDT Dm Pena MD LABORATORY Final Resul t [facility] [address] [address], * (ABNORMAL) LIPID PANEL (09/09/2013 9:23 AM [...] patient with results us Generic Conversion Md [facility] Final R esult [employer] TO EPIC CONVERSION from Last 3 Months or Most Recently Relevant to Health Maintenance Insurance MEDICARE MEDICARE Care Teams Director Of Security Relationship Specialty Start Date End Date Dm Pena MD [address] [phone] PCP - General FAMILY PRACTICE 10/23/18
--- OUTSIDE RECORDS SUMMARY | 2024-10-13 16:49 | XMS_ITS | Encounter Summary ---
Author Organization [facility] Address [address] [place] [address] Care Team Providers Care Coffee Roaster Name Role Phone Dm Pena MD Primary Care Provider Efren Ramirez DO Primary Care Provider Encounter Details Date Type Department Care Team (Late st Contact Info) Description 07/15/2019 Pre-evaluation Visit [facility] [address] [place] [id number] Allie Noland, PT Social History Tobacco Use [...] difficulty? Answer Date of Assessment Author No 04/18/2019 6:40 PM CDT Amina Hayes RN * Is person blind or have serious difficulty seeing? Answer Date of Assessment Author No 04/18/2019 6:40 PM CDT Amina Hayes RN * Does person have serious difficulty walking/climbing stairs? Answer Date of Assessment Author No 04/18/2019 6:40 PM CDT Amina Hayes RN * Does person have difficulty dressing/bathing? Answer Date of Assessment Author No 04/18/2019 6:40 PM CDT Amina Hayes RN * Does person have difficulty doing errands alone? Answer Date of Assessment Author No 04/18/2019 6:40 PM CDT Amina Hayes RN documented as of this encounter Mental Status * Does person have difficulty concentrating/remembering/making decisions? Answer Entry Date Author No 04/18/2019 6:40 PM DIOGENEST Amina Hayes RN documented in this encounter Plan of Treatment Upcoming Encounters Date Type Department Care Team (Late st Contact Info) Description 05/18/2025 11:00 AM REGISTERED NURSE FIRST ASSISTANT Office Visit [facility] [place] [address] [place] [address], [place] [phone] Melecio Graves MD [address] [place] [address] [place] [address] documented as of this encounter Visit Diagnoses Not on filedocumented in this encounter Additional Health Concerns Infection Onset Date Last Indicated Resolved Time COVID-19 Under Investigation 09/20/2020 09/20/2020 09/20/2020 10:10 PM CDT COVID-19 Under Investigation 07/19/2021 07/19/2021 07/19/2021 1:09 PM REGISTERED NURSE FIRST ASSISTANT COVID-19 Confirmed 07/19/2021 07/19/2021 4:33 AM REGISTERED NURSE FIRST ASSISTANT COVID-19 Under Investigation 10/29/2023 10/29/2023 10/29/2023 9:28 AM CDT COVID-19 Under Investigation 09/22/2024 09/22/2024 09/22/2024 12:05 PM CDT documented as of this encounter Care Teams Coffee Roaster Relationship Specialty Start Date End Date Dm Pena MD [address] [address] PCP - General Family Medicine 02/06/19 06/11/24 Efren Ramirez DO [address] [place] [address] PCP - General Internal Medicine 06/12/24 documented as of this encounter
--- OUTSIDE RECORDS SUMMARY | 2024-10-13 16:49 | XMS_ITS | Referral Summary ---
Author Organization [facility] Address [address] [place] [address] Care Team Providers Care Day Camp Counselor Name Role Phone Dm Pena MD Primary Care Provider + [phone] Sarah Jimenez RN Unavailable [phone] Hermelindo Avilez MD Unavailable [phone] Milla Calero RN Unavailable [phone] Melecio Graves MD Unavailable [phone] Nupur Shea RN Unavailable Unavailabl e Encounters Date Type Department Care Team Description 10/09/2024 Telephone [facility] Transplant Kidney [address] [facility] [address] Mailstop [phone] [place] [address] Nupur Shea RN 10/09/2024 Telephone [facility] Transplant Kidney [address] [facility] [address] Mail[address] [phone] [place] [address] Nupur Shea RN 10/09/2024 Telephone [facility] Transplant Kidney [address] [facility] [address] Mail[address] [phone] [place] [address] Salena Mcdowell 10/08/2024 Telephone [facility] Transplant Liver [address] Mailstop [phone] [place] [address] Milla Calero, RN 10/06/2024 Telephone [facility] Transplant Liver [address] [facility] [address] Mailstop [phone] [place] [address] Mckenzie Ibarra 10/06/2024 Documentation [facility] Transplant Liver [address] [facility] [address] Mailstop [phone] [place] [address] Stacey, Mckenzie 10/06/2024 Documentation [facility] Transplant Liver [address] [facility] [address] Mailstop [phone] [place] [address] Mckenzie Ibarra 10/03/2024 Telephone [facility] Transplant Kidney [address] [facility] [address] Mailstop [phone] [place] [address] YearNupur schroeder RN 10/01/2024 Documentation [facility] Transplant Kidney [address] [facility] [address] Mailstop [phone] [place] [address] Salena Mcdowell 10/01/2024 Telephone [facility] Transplant Kidney [address] [facility] [address] Mailstop [phone] [place] [address] YearNupur schroeder RN 10/01/2024 Documentation [facility] Transplant Kidney [address] [facility] [address] Mailstop [phone] [place] [address] Salena Mcdowell 09/30/2024 Telephone [facility] Transplant Liver [address] [facility] [address] Mailstop [phone] [place] [address] Milla Calero, RN 09/30/2024 Telephone [facility] Transplant Liver [address] [facility] [address] Mailstop [phone] [place] [address] Milla Calero, RN 09/30/2024 Telephone [facility] Transplant Kidney [address] [facility] [address] Mail[address] [id number] [place] [address] YearNupur schroeder, RN 09/30/2024 Telephone [facility] Transplant Kidney [address] [facility] [address] Mailstop [phone] [place] [address] YearNupur schroeder, RN 09/30/2024 Telephone [facility] Transplant Kidney [address] [facility] [address] Mailstop [phone] [place] [address] Denisse Gates Referral - Kidney Txp 09/30/2024 Telephone [facility] Transplant Liver [address] [facility] [address] Mailstop [phone] [place] [address] Milla Calero, RN 09/30/2024 Telephone [facility] Transplant Liver [address] [facility] [address] Mailstop [phone] [place] [address] Milla Calero, RN 09/25/2024 Telephone [facility] Transplant Liver [address] [facility] [address] Mailstop [phone] [place] [address] Mckenzie Ibarra 09/22/2024 Telephone [facility] Transplant Liver [address] [facility] [address] Mailstop [phone] [place] [address] Suzi Duque 09/15/2024 Telephone [facility] Transplant Liver [address] [facility] [address] Mailstop [phone] [place] [address] Milla Calero, RN 09/11/2024 Telephone [facility] Transplant Liver [address] [facility] [address] Mailstop [phone] [place] [address] Suzi Duque 09/10/2024 Documentation [facility] Transplant Liver [address] [facility] [address] Mailstop [phone] [place] [address] Milla Calero RN 09/10/2024 Telephone [facility] Transplant Liver [address] [facility] [address] Mailstop [phone] [place] [address] Suzi Duque from Last 3 Months Allergies Active Allergy [...] often do you attend chur ch or rastafari services? 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 file Not [...] evaluation for liver transplant Alcoholic liver disease Procedures Procedure Name Priority Date/Time Associated Diagnosis Comments HEPATITIS C ANTIBODY Routine 09/22/2020 12:51 PM CDT Alcoholic liver disease PSA SCREEN Routine 09/22/2020 12:51 PM CDT Alcoholic liver disease from Last 3 Months or Most Recently Relevant to Health Maintenance Results * PSA screen (09/22/2020 12:51 PM CDT) PSA-Total 0.76 <=3.90 ng/mL RA RUSHING Comment: Interpretive Data AGE SEX REFERENCE INTERVAL 0 minutes-150 years Female None 0 minutes-49 years Male None 50-59 years Male 0-3.90 60-69 years Male 0-5.40 70-79 years Male 0-6.20 80-150 years Male 0-6.20 Current interpretive data last revised 2018. Blood specimen (specimen) 09/22/2020 12:51 PM CDT 09/22/2020 1:40 PM CDT Dean Echols MD LAB BLOOD ORDERABLES F inal Result [facility] [place] [address] * Hepatitis C antibody (09/22/2020 12:51 PM CDT) Hep C Ab Nonreactive Nonreactive RA RUSHING Comment:Antibodies to HCV no t detected. Does NOT exclude the possibility of recent exposure to HCV. Blood specimen (specimen) 09/22/2020 12:51 PM CDT 09/22/2020 1:40 PM CDT Dean Echols MD LAB MICROBIOLOGY - GEN ERAL ORDERABLES Edited Result - Final RA [facility] Department [place] [address] from Last 3 Months or Most Recently Relevant to Health Maintenance Insurance [place] [address] MEDICARE MEDICARE MEDICARE Care Teams Day Camp Counselor Relationship Specialty Start Date End Date Dm Pena MD [address] [place] [address] PCP - General 03/05/19 Sarah Jimenez, RN [address] [address] [employer] Torch Operator 09/23/20 Hermelindo Avilez MD [address] [address] Referring Physician Nephrology 09/23/20 Milla Calero, RN [address] [facility] [address] [place] [address] [employer] Torch Operator 09/10/24 Melecio Graves MD [address] [address] Referring Physician Internal Medicine 09/10/24 YearoutNupur, production packagerAnnealing Torch Operator 09/30/24
--- OUTSIDE RECORDS SUMMARY | 2024-10-13 16:49 | XMS_ITS | Clinical Summary ---
Author Organization [facility] Narrable Address [address] [place] [address] Care Team Providers Care Dye Line Operator Name Role Phone Efren Ramirez DO Primary Care Provider [phone] Source Comments [facility],non-owned Affiliates and Associated Physician Practices is amultiple site organization consisting of ambulatory clinics and hospital sitesin [place], [place], [place] and [place]. This disclosure is being madepursuant to the Care Everywhere program and may not contain all information available regarding this patient. Last updated 18.[facility] Allergies No known active allergies Medications * Be aware that medications may not be up to date on this document. Alwaysverify current medications with the patient. melatonin 3 MG tablet Take 5 mg by mouth nightly as needed for Insomnia (takes 10 mg prn) Active pantoprazole EC (PROTONIX) 40 MG tablet Take 1 tablet by mouth once daily 90 tablet 3 9 Active nadolol (CORGARD) 20 MG tabletIndicatio ns:Alcoholic cirrhosis of liver with ascites (HCC) Take 1 (one) tablet by mouth once daily 90 tablet 3 1 Active lactulose (Chronulac) 10 GM/15ML solutionIndicat ions:Cirrhosis of liver with ascites, unspecified hepatic cirrhosis type (HCC) Take 30 mL by mouth 3 times daily 2838 mL 1 4 Active renal vitamin (Dialyvite) tablet Take 1 (one) tablet by mouth once daily 4 Active sevelamer carbonate (Renvela) 800 MG Take 2 (two) tablets by mouth 3 times daily with meals for 90 days 180 tablet 2 4 Active hydrALAZINE (Apresoline) 25 MG tablet Take 1 (one) tablet by mouth 3 times daily Active furosemide (Lasix) 80 MG tablet Take 1 (one) tablet by mouth 2 times daily 4 Active folic acid (Folvite) 1 MG tablet Take 1 (one) tablet by mouth once daily 30 tablet 2 5 Active levETIRAcetam (Keppra) 750 MG tablet Take 1 (one) tablet by mouth Give in dialysis on Sunday, & Sunday 30 tablet 2 5 Active Additional Information Patient taking differently:750 mg Oral2 TIMES DAILY, TAKES EVERY DAY ;TAKES 2 BEFORE DIALYSIS AND ONE AFTER MWF, Reported on 09/30/2024 rifAXIMin (Xifaxan) 550 MG tablet Take 1 (one) tablet by mouth 2 times daily 60 tablet 2 5 Active Additional Information Patient not taking.Reported on 09/30/2024 levETIRAcetam (Keppra) 750 MG tablet TAKE 1 TABLET BY MOUTH TWICE DAILY 180 tablet 3 4 025 Discontin ued(Dose Adjustmen t) amLODIPine (Norvasc) 2.5 MG tablet Take 1 (one) tablet by mouth once daily 025 Discontin ued(List Clean-Up) spironolactone (Aldactone) 50 MG tablet Take 1 (one) tablet by mouth once daily 5 025 Discontin ued(List Clean-Up) amLODIPine (Norvasc) 5 MG tablet Take 1 (one) tablet by mouth once daily 5 025 Discontin ued(Clini charles Decision) levETIRAcetam (Keppra) 750 MG tablet Take 2 (two) tablets by mouth once daily 30 tablet 2 03/27 025 Discontin ued(List Clean-Up) Active Problems Problem Noted Date Diagnosed Date Confusion 09/22/2024 Vomiting and diarrhea 09/22/2024 Encephalopathy, unspecified type 08/12/2024 Neutropenia 06/14/2024 Acute pain of right knee [...] from the original note were not included. Leonid Cuello [address] JUÁREZ ETOH cirrhosis [...] 80 PTH Intact 546.1 (H) 12/07/22 13:03 Qtlxg-2-Ypnywfckgye 119 Jfmzh-6-Onhrieavrnw Phenotype M1S Ceruloplasmin 25 Osmolality Calculated 301 [...] 04/26/23 09:45 04/26/23 09:46 dsDNA Antibody 15 Fofana/ARMORED TRANSPORT SERVICE MANAGER Antibodies 2 Fofana (FRANCESCA) Antibody 6 [...] Has completed Hep B vaccination series-scanned into [facility]1 alcohol associated liver disease, prior decompensation, [...] It is the impression of this social service assistant that Leonid Cuello has several positive factors for Liver/Kidney transplant candidacy including knowledge of illness, sufficient insurance coverage, stable financial situation for post transplant needs, adequate support system, and appropriate discharge plan. 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 Patient appears to be a reasonable candidate for transplant from a psychosocial perspective. Post transplant arrangement forms are needed prior to being listed. Psychiatric Consult Recommended: no Transplant Hand Button Splitter: Tala Villalta LCSW Liver Transplant Education 12/07/2022 Linh Forde, in home tutorTruck Crane Operator ENT 11/29/22 - +chew tobacco Findings: -No [...] committee and are final. Amelia Corral MD packing room worker Transplant Surgery [facility] Transplant Surgery Consultation 01/21/24 Dr. Corral - need note Transplant Nephrology Consultation 01/29/23 I consider the patient an excellent candidate for a simultaneous Liver-Kidney Transplantation. The patient needs ECHO of heart due to a grade 2-3/6 systolic murmur all over the anterior precordium radiating to carotids and anterior Lt axillary line. Also check Anti-DS-DNA Ab, Anti-Fofana Ab, Anti-ARMORED TRANSPORT SERVICE MANAGER Ab, C3, C4, CH50, Lupus anticoagulants titer. - Return to Clinic as needed. - Discussed health maintenance, including regular aerobic exercise, low fat, low salt diet, and periodic exams. Sameera Fitzgerald MD Renal Attending Transplant Nephrology Consultation 01/21/24 Dr. Fitzgerald Verified will qualify for [facility] - need note Neurology Consultation - hx seizures 04/26/23 Assessment/Plan: Leonid Cuello is a 57 year old male [...] Encounters Date Type Department Care Team Description 10/10/2024 Orders Only [facility] TRANSPLANT [address] [place] [phone] Linh Forde RN ESRD (end stage renal disease) on dialysis (HCC); 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); Alcoholic cirrhosis of liver without ascites (HCC); Pre-liver transplant, listed; Pre-kidney transplant, listed 10/03/2024 Orders Only [facility] TRANSPLANT [address] [place] [phone] Linh Forde RN ESRD (end stage renal disease) on dialysis (HCC); 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); Alcoholic cirrhosis of liver without ascites (HCC); Pre-liver transplant, listed; Pre-kidney transplant, listed 09/30/2024 1:00 PM CDT Office Visit [facility] - [address] [facility] [place] [phone] Melecio Graves MD Decompensated hepatic cirrhosis (HCC) (Primary Dx) 09/30/2024 Travel 09/26/2024 Orders Only [facility] TRANSPLANT [address] [place] [phone] Linh Forde RN ESRD (end stage renal disease) on dialysis; 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; Alcoholic cirrhosis of liver without ascites; Pre-liver transplant, listed; Pre-kidney transplant, listed 09/22/2024 11:23 AM CDT - 09/25/2024 1:58 PM CDT Hospital Encounter [facility] 3E MED/ONC [address] [place] [address] Anastasiia Urena DO Suresh, Aditya K, MD Hambolu, Kehinde, MD Internal Medicine Discharge Disposition: Home or Self Care 09/22/2024 Travel 09/19/2024 Orders Only [facility] TRANSPLANT [address] [place] [phone] Linh Forde RN ESRD (end stage renal disease) on dialysis; 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; Alcoholic cirrhosis of liver without ascites; Pre-liver transplant, listed; Pre-kidney transplant, listed 09/12/2024 Orders Only [facility] TRANSPLANT [address] [place] [phone] Linh Forde RN ESRD (end stage renal disease) on dialysis; 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; Alcoholic cirrhosis of liver without ascites; Pre-liver transplant, listed; Pre-kidney transplant, listed 09/11/2024 8:30 AM CDT Office Visit [facility] - Orthopedics [address] [place] [phone] Yaima Dobbins MD Pyogenic arthritis of right knee joint, due to unspecified organism (Primary Dx) 09/11/2024 Travel 09/10/2024 Orders Only [facility] TRANSPLANT [address] [place] [phone] Linh Forde RN ESRD (end stage renal disease) on dialysis; MPGN (membranoproliferativ e glomerulonephritides) ; Alcoholic cirrhosis of liver without ascites; S/P hernia repair 09/10/2024 Orders Only [facility] TRANSPLANT [address] [place] [phone] Linh Forde RN Alcoholic cirrhosis of liver without ascites ; ESRD (end stage renal disease) on dialysis; MPGN (membranoproliferativ e glomerulonephritides) ; ESRD on dialysis; S/P hernia repair 09/05/2024 Orders Only [facility] TRANSPLANT [address] [place] [phone] Linh Forde RN ESRD (end stage renal disease) on dialysis; 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; Alcoholic cirrhosis of liver without ascites; Pre-liver transplant, listed; Pre-kidney transplant, listed 09/04/2024 Travel 08/29/2024 Orders Only [facility] TRANSPLANT [address] [place] [phone] Linh Forde RN ESRD (end stage renal disease) on dialysis; 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; Alcoholic cirrhosis of liver without ascites; Pre-liver transplant, listed; Pre-kidney transplant, listed 08/25/2024 Orders Only [facility] TRANSPLANT [address] [place] [phone] Linh Forde RN Pre-liver transplant, listed ; ESRD (end stage renal disease) on dialysis; 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; Alcoholic cirrhosis of liver without ascites; Pre-kidney transplant, listed 08/07/2024 Telephone [facility] - Pulmonology [address] [place] [phone] Yaima Dobbins MD Question 08/05/2024 8:40 PM MACHINE REPAIR PERSON - 08/05/2024 8:52 PM MACHINE REPAIR PERSON Emergency [facility] EMERGENCY DEPARTMENT [address] [place] [phone] Discharge Disposition: Left Against Medical Advice/Discontinued Care 08/05/2024 10:00 AM MACHINE REPAIR PERSON Clinical Support [facility] TXP [facility] [address] [place] [phone] Unknown, Provider S/P hernia repair 08/05/2024 Travel 07/24/2024 7:05 AM MACHINE REPAIR PERSON - 07/24/2024 11:59 PM MACHINE REPAIR PERSON Hospital Encounter [facility] LAB OP DRAW STATION [address] [place] [phone] Discharge Disposition: Home or Self Care 07/24/2024 Travel 07/22/2024 Telephone [facility] - GI [address] [place] [phone] Jackson Melvin MD Physical Therapy from Last 3 Months Immunizations Immunization Administration Dates Next Due COVID JOSE CARLOS [...] Recorded Patient Health Questionnaire-2 Score 1 09/10/2024 [facility] [place] [facility] - Occupational Stress [...] place to sleep or slept in a usp (including now)? No 11/01/2023 Housing Stability Vital Sign Answer Armaan e Recorded In the last 12 months, was t here a time when you were not able to pay the mortgage or rent on time? No 06/12/2024 In the past 12 months, how m any times have you moved where you were living? 0 06/12/2024 At any time in the past 12 m [facility], were you homeless or living in a usp (including now)? No 06/12/2024 Sex and Gender Information Value Date Recorded Sex Assigned at Not on file Legal Sex Male 7:16 PM CDT Gender Identity Not on file Sexual Orientation Not on file Last Filed Vital Signs Vital Sign Reading Time Taken Comments Blood Pressure 130/66 09/30/2024 1:07 PM CDT Pulse 67 09/30/2024 1:07 PM CDT Temperature 36.5 C (97.7 F) 09/30/2024 1:07 PM CDT Respiratory Rate 18 09/25/2024 4:37 AM CDT Oxygen Saturation 100% 09/30/2024 1:07 PM CDT Inhaled Oxygen Concentration 30% 10/31/2023 5 :04 PM CDT Weight 75 kg (165 lb 4.8 oz) 09/22/2024 8:54 PM CDT Height 175.3 cm (5' 9 ) 09/30/2024 1:07 PM CDT Body Mass Index 23.72 09/22/2024 8:54 PM CDT Plan of Treatment Upcoming Encounters Date Type Department Care Team (Late st Contact Info) Description 05/18/2025 11:00 AM MACHINE REPAIR PERSON Office Visit [facility] - GI [address] [place] [phone] Melecio Graves MD [address] [facility] [address] [place] [address] Health Maintenance Due Date Last Done Comments COLOGUARD (AGES 45-75) - COLON CA SCREENING 1965 CT COLONOGRAPHY - COLON CA SCREENING 1965 FIT - COLON CA SCREENING 1965 FLEX SIG - COLON CA SCREENING 1965 MEDICARE AWV 12 MONTHS 1965 HEPATITIS B VACCINE (2 of 5 - Risk Dialysis 4-dose series) 12/20/2019 11/22/2019 ZOSTER VACCINE (2 of 2) 01/08/2024 11/13/2023 COVID-19 VACCINE ( - season) 2024 05/02/2022, 06/13/2021, 09/16/2020 INFLUENZA VACCINE (Season Ended) 2025 03/28/2022, 03/28/2022, 05/31/2021, Additional history exists DTAP/TDAP/TD VACCINES (2 - Td or Tdap) 12/25/2027 12/24/2017 LIPID TESTING 12/24/2028 12/25/2023, 01/2023, 10/08/2019, Additional history exists COLON MONITORING 01/11/2030 01/12/2020 COLONOSCOPY - COLON CA SCREENING 2031 12/05/2021, 01/12/2020 Colorectal Cancer Screening 2031 PNEUMOCOCCAL VACCINE 50+ Completed 11/13/2023, 09/2021 HEPATITIS C SCREENING Completed 05/21/2024 , 12/25/2023, 12/07/2022, Additional history exists HIV SCREENING Completed 05/21/2024, 12/01, 12/07/2022, Additional history exists DEPRESSION SCREENING Completed 09/11/2024 HIB VACCINE Aged Out No longer eligi ble based on patient's age to complete this topic HPV VACCINE Aged Out No longer eligi ble based on patient's age to complete this topic MENINGOCOCCAL (Group B) VACCINE SHARED DECISION-MAKING Aged Out No longer eligible based on patient's age to complete this topic MENINGOCOCCAL GROUPS A/C/Y/W VACCINE Aged Out No longer eligible based on patient's age to complete this topic Goals Goal Patient Goal Type Associated Problems Recent Progress Patient-Stated? Author Medication Management General On track( 025 1:01 PM CDT) Imelda Perez, DIVINE Note: Expected end date: ongoing Interventions: Take all medications as prescribed Let your doctor know right away about any changes in your medications Make sure to request a refill of your medication at least one week prior to your last dose Medical Devices Implanted Type Area Structural Draftsman Device Identifier Shelf Expiration Date Model / Serial / Lot Kit Durathane Drflw Embosafe Chrnc Dlys Implanted:Qty: 1 on 03/07/2019 by Trav Merrill MD at [facility] Right: Chest [employer] 03/31/2021 [id number] / / [id number] Graft Vasc 6mm 40cm Ptfe Flixene Sldr - [id number] Implanted:Qty: 1 on 02/21/2022 by Kiko Pena MD at [facility] Left: Arterial Maquet 07/20/2023 [id number] / [id number] / Mesh Srg Parietex Progrip 14x9cm Slf Implanted:Qty: 1 on 07/11/2024 by Theron Medellin MD at [facility] Right: Inguinal Covidien [id number] 08/29/2028 [id number] / / [id number] Procedures Procedure Name Priority Date/Time Associated Diagnosis Comments CARDIAC EKG ORDER 09/25/2024 6:4 4 PM CDT DIFFERENTIAL MANUAL STAT 09/25/2024 8 :43 AM CDT CBC W AUTO DIFFERENTIAL STAT 09/25/2024 8:43 AM CDT AMMONIA Routine 09/25/2024 4:09 AM CDT HEMODIALYSIS INPATIENT Routine 3:51 PM CDT HEPATITIS B SURFACE ANTIGEN W RFLX CONFIRMATION STAT 09/24/2024 3:51 PM CDT HEPATIC FUNCTION PANEL Routine 9:58 AM CDT AMMONIA Routine 09/24/2024 3:16 AM CDT EEG AWAKE OR DROWSY ROUTINE Routine 09/23/2024 4:38 PM CDT LEVETIRACETAM LEVEL Routine 09/23/2024 1 2:58 PM CDT EEG AWAKE OR DROWSY ROUTINE Routine 09/23/2024 11:15 AM CDT FOLATE STAT 09/23/2024 9:30 AM CDT VITAMIN B12 STAT 09/23/2024 9:30 AM CDT TSH REFLEX FREE T4 STAT 09/23/2024 9: 30 AM CDT AMMONIA STAT 09/23/2024 9:30 AM CDT ESRD (end stage renal disease) on dialysis PT EVAL AND TREAT Routine 09/23/2024 9:1 4 AM CDT OT EVAL AND TREAT Routine 09/23/2024 9:1 4 AM CDT CBC W/O DIFFERENTIAL Routine 09/23/2024 1:58 AM CDT Encephalopathy, unspecified type BASIC METABOLIC PANEL (CALCIUM TOTAL) Routine 09/23/2024 1:58 AM CDT Encephalopathy, unspecified type TROPONIN-I HIGH SENSITIVE REFLEX 1HOUR Timed 09/22/2024 3:[address] ABDOMEN PELVIS W CONTRAST STAT 09/22/2024 3:28 PM CDT Confusion Vomiting and diarrhea CT ANGIO BRAIN AND NECK STAT 09/22/2024 3:[address] HEAD WO CONTRAST STAT 09/22/2024 3 :24 PM CDT Confusion TROPONIN-I HIGH SENSITIVE BASELINE + 1HR STAT 09/22/2024 1:11 PM CDT AMMONIA STAT 09/22/2024 1:11 PM CDT XR CHEST 1VW PORTABLE STAT 09/22/2024 12:19 PM CDT Confusion ALCOHOL ETHYL BLOOD STAT 09/22/2024 1 1:20 AM CDT SLIDE SCAN HEMATOLOGY STAT 09/22/2024 11:20 AM CDT COMPREHENSIVE METABOLIC PANEL STAT 09/22/2024 11:20 AM CDT CBC W AUTO DIFFERENTIAL STAT 09/22/2024 11:20 AM CDT SARS-COV-2 (COVID-19) FLU A/B RSV PCR RAPID STAT 09/22/2024 11:20 AM CDT EKG 12-LEAD STAT 09/22/2024 11:08 AM CDT Confusion COMPREHENSIVE METABOLIC PANEL STAT 08/05/2024 2:28 PM MACHINE REPAIR PERSON GLUCOSE - POINT OF CARE Routine 08/05/2024 2:27 PM MACHINE REPAIR PERSON DIFFERENTIAL MANUAL Routine 07/24/2024 7 :38 AM MACHINE REPAIR PERSON Pre-liver transplant, listed Pre-kidney transplant, listed Alcoholic cirrhosis of liver with ascites ESRD on dialysis Stage 5 chronic kidney disease MPGN (membranoproliferat jaden glomerulonephritide s) PT-INR SLH Routine 07/24/2024 7:38 AM MACHINE REPAIR PERSON Pre-liver transplant, listed Pre-kidney transplant, listed Alcoholic cirrhosis of liver with ascites ESRD on dialysis Stage 5 chronic kidney disease MPGN (membranoproliferat jaden glomerulonephritide s) CBC W AUTO DIFFERENTIAL Routine 07/24/2024 7:38 AM MACHINE REPAIR PERSON Pre-liver transplant, listed Pre-kidney transplant, listed Alcoholic cirrhosis of liver with ascites ESRD on dialysis Stage 5 chronic kidney disease MPGN (membranoproliferat jaden glomerulonephritide s) COMPREHENSIVE METABOLIC PANEL Routine 07/24/2024 7:38 AM MACHINE REPAIR PERSON Pre-liver transplant, listed Pre-kidney transplant, listed Alcoholic cirrhosis of liver with ascites ESRD on dialysis Stage 5 chronic kidney disease MPGN (membranoproliferat jaden glomerulonephritide s) HEPATITIS C AB SCREEN RFLX NAAT QUANT Routine 05/21/2024 2:29 AM MACHINE REPAIR PERSON HIV-1 HIV-2 ANTIBODY + HIV P24 AG PANEL STAT 05/21/2024 2:29 AM MACHINE REPAIR PERSON LIPID PROFILE Routine 12/25/2023 8:13 AM CDT ESRD on dialysis Alcoholic cirrhosis of liver with ascites Stage 5 chronic kidney disease Pre-transplant evaluation for liver transplant Pre-transplant evaluation for kidney transplant Other ascites MPGN (membranoproliferat jaden glomerulonephritide s) Smoker Anemia in end-stage renal disease from Last 3 Months or Most Recently Relevant to Health Maintenance Results * CARDIAC EKG ORDER (09/25/2024 6:44 PM CDT) Narrative 09/25/2024 6:44 PM CDT Ordered by an unspecified provider. us Scanned Document CARDIAC SERVICES ORDERABLES Fin al Result * (ABNORMAL) DIFFERENTIAL MANUAL (09/25/2024 8:43 AM CDT) Only the most recent of2 resultswithin the time period is included. Neutrophil % 55 41 - 74 % 09/25/2024 10:49 AM CDT [facility] Lymphocyte % 29 17 - 47 % 09/25/2024 10:49 AM CDT [facility] Monocyte % 10 3 - 11 % 09/25/2024 10:49 AM CDT [facility] Eosinophil % 4 0 - 7 % 09/25/2024 10:49 AM CDT [facility] Basophil % 2 0 - 2 % 09/25/2024 10:49 AM CDT [facility] Neutrophil Absolute 0.94(L) 1.60 - 7.50 x10E9/L 09/25/2024 10:49 AM CDT [facility] Lymphocyte Absolute 0.49(L) 1.00 - 4.40 x10E9/L 09/25/2024 10:49 AM CDT [facility] Monocyte Absolute 0.17 0.15 - 1.00 x10E9/L 09/25/2024 10:49 AM CDT [facility] Eosinophil Absolute 0.07 0.00 - 0.60 x10E9/L 09/25/2024 10:49 AM CDT [facility] Basophil Absolute 0.03 0.00 - 0.13 x10E9/L 09/25/2024 10:49 AM CDT [facility] RBC Morphology REVIEWED 09/25/2024 10:49 AM CDT [facility] Ovalocytes MODERATE(A) (none) 09/25/2024 10:49 AM T [facility] Blood BLOOD SPECIMEN / Unknown Lab Venipuncture / Unknown 09/25/2024 8:43 AM CDT 09/25/2024 9:09 AM CDT us Jensen Choi MD LAB - HEMATOLOGY ORDERABLES F inal Result [facility] [address] [place] [address] * (ABNORMAL) CBC W AUTO DIFFERENTIAL (09/25/2024 8:43 AM CDT) Only the most recent of3 resultswithin the time period is included. WBC 1.7(L) 4.0 - 10.7 x10E9/L 09/25/2024 10:49 AM CDT [facility] RBC Count 2.58(L) 4.30 - 5.80 x10E12/L 09/25/2024 10:49 AM CDT [facility] Hemoglobin 8.7(L) 13.3 - 17.5 g/dL 09/25/2024 10:49 AM CDT [facility] Hematocrit 26.0(L) 38.7 - 51.1 % 09/25/2024 10:49 AM CDT [facility] MCV 100.8(H) 80.0 - 98.0 fL 09/25/2024 10:49 AM CDT [facility] MCH 33.7(H) 26.7 - 33.6 pg 09/25/2024 10:49 AM CDT [facility] MCHC 33.5 31.7 - 36.3 g/dL 09/25/2024 10:49 AM CDT [facility] RDW-CV 13.7 11.3 - 14.8 % 09/25/2024 10:49 AM CDT [facility] Platelet Count 20(L) 150 - 420 x10E9/L 09/25/2024 10:49 AM CDT [facility] MPV 11.1 7.8 - 11.4 fL 09/25/2024 10:49 AM CDT [facility] Blood BLOOD SPECIMEN / Unknown Lab Venipuncture / Unknown 09/25/2024 8:43 AM CDT 09/25/2024 9:09 AM CDT Jensen Choi MD LAB - HEMATOLOGY ORDERABLES F inal Result Performing Organization Address City/State/[facility] Co de Phone Number [facility] [address] [place] [phone] * AMMONIA (09/25/2024 4:09 AM CDT) Only the most recent of4 resultswithin the time period is included. Ammonia 72 18 - 72 umol/L 09/25/2024 5:38 AM CDT [facility] Blood BLOOD SPECIMEN / Unknown Lab Venipuncture / Unknown 09/25/2024 4:09 AM CDT 09/25/2024 5:16 AM CDT Jensen Choi MD LAB - CHEMISTRY ORDERABLES Fi nal Result Performing Organization Address City/[facility]/ZIP Co de Phone Number [facility] [address] [place] [address] [phone] * HEPATITIS B SURFACE ANTIGEN W RFLX CONFIRMATION (09/24/2024 3:51 PM CDT) [facility] HBsAg Non Reactive Non Reactive 09/24/2024 5:44 PM CDT [facility] Blood BLOOD SPECIMEN / Unknown Lab Venipuncture / Unknown 09/24/2024 3:51 PM CDT 09/24/2024 4:04 PM CDT us Noé Benton MD LAB - CHEMISTRY ORDERABLE S Final Result Performing Organization Address [facility] Co de Phone Number [facility] [address] [place] [address] * (ABNORMAL) HEPATIC FUNCTION PANEL (09/24/2024 9:58 AM CDT) [facility] Alkaline Phosphatase 142 40 - 150 U/L 09/24/2024 11:01 AM CDT [facility] ALT 6 6 - 57 U/L 09/24/2024 11:01 AM CDT [facility] AST 23 10 - 48 U/L 09/24/2024 11:01 AM CDT [facility] [facility] Protein Total 5.7(L) 6.4 - 8.3 gm/dL 09/24/2024 11:01 AM CDT [facility] Albumin 2.8(L) 3.4 - 5.0 gm/dL 09/24/2024 11:01 AM CDT [facility] Bilirubin Total 1.1 0.2 - 1.2 mg/dL 09/24/2024 11:01 AM CDT [facility] Bilirubin Direct 0.372 0.10 - 0.50 mg/dL 09/24/2024 11:01 AM CDT [facility] Blood BLOOD SPECIMEN / Unknown Lab Venipuncture / Unknown 09/24/2024 9:58 AM CDT 09/24/2024 10:45 AM CDT us Jensen Choi MD LAB - CHEMISTRY ORDERABLES Fi nal Result [facility] [address] [place] [address] * EEG AWAKE OR DROWSY ROUTINE (09/23/2024 4:38 PM CDT) Narrative [facility] JENNY - 09/23/2024 4:38 PM CDT Harrison Lilly MD 09/23/2024 4:40 PM [facility] 3E MED/ONC [address] [facility] [id number] Electroencephalogram Leonid Cuello 09/23/2024 Indication: Leonid Cuello is a 58 year old male who presents with seizure disorder. Current Facility-Administered Medications Medication 0.9% NaCl injection 3 mL And 0.9% NaCl injection 1-10 mL furosemide (Lasix) tablet 80 mg hydrALAZINE (Apresoline) tablet 25 mg iopamidol (Isovue 370) 76 % contrast iopamidol (Isovue 370) 76 % contrast lactulose (Chronulac) solution 20 g levETIRAcetam (Keppra) tablet 750 mg melatonin tablet 5 mg nadolol (Corgard) tablet 20 mg ondansetron (disintegrating) (Zofran ODT) tablet 4 mg ondansetron (Zofran) injection 4 mg pantoprazole EC (Protonix) tablet 40 mg prochlorperazine (Compazine) injection 5 mg prochlorperazine (Compazine) injection 5 mg rifAXIMin (Xifaxan) tablet 550 mg sevelamer carbonate (Renvela) tablet 1,600 mg spironolactone (Aldactone) tablet 50 mg Procedure: Pt is awake and drowsy during the recording. A 16 channel EEG was performed in the International 10-20 system. One lead of EKG records a regular rate of 70 bpm. The technical quality is good.The background rhythm is alpha in the range of 8-10 hertz with good variability and reactivity. Voltages are in the moderate range. Hyperventilation not performed. Photic normal. There are no epileptiform discharges identified. No other focal or lateralizing abnormality seen. Sleep was not seen. Impression: This is a normal electroencephalogram. Please note that a normal EEG cannot exclude a seizure disorder. If strongly suspected, further study may be performed with a sleep-deprived or extended EEG. Harrison Lilly MD, MSc Shamika Hayes PA-C NEUROLOGY ORDERABLES Fin al Result Performing Organization Address City/[facility]/ZIP Co de Phone Number [facility]NY * (ABNORMAL) LEVETIRACETAM LEVEL (09/23/2024 12:58 PM CDT) Levetiracetam 60.36(H) 10 - 40 ug/mL 09/23/2024 1:41 PM CDT [facility] Blood BLOOD SPECIMEN / Unknown Lab Venipuncture / Unknown 09/23/2024 12:58 PM CDT 09/23/2024 1:13 PM CDT Shamika Hayes PA-C LAB - THERAPEUTIC DRUG M ONITORING ORDERABLES Final Result Performing Organization Address [facility] de Phone Number [facility] [address] [place], [place] [id number] * TSH REFLEX FREE T4 (09/23/2024 9:30 AM CDT) TSH 1.799 0.350 - 4.940 uIU/mL 09/23/2024 10:49 AM CDT [facility] Blood BLOOD SPECIMEN / Unknown Lab Venipuncture / Unknown 09/23/2024 9:30 AM CDT 09/23/2024 9:50 AM CDT Jensen Choi MD LAB - CHEMISTRY ORDERABLES Fi nal Result Performing Organization Address [facility] Co de Phone Number [facility] [address] [place] [phone] * (ABNORMAL) FOLATE (09/23/2024 9:30 AM CDT) Folate 3.9(L) 7.0 - 31.4 ng/mL 09/23/2024 10:49 AM CDT [facility] Blood BLOOD SPECIMEN / Unknown Lab Venipuncture / Unknown 09/23/2024 9:30 AM CDT 09/23/2024 9:50 AM CDT Jensen Choi MD LAB - CHEMISTRY ORDERABLES Fi nal Result Performing Organization Address City/[facility]/ZIP Co de Phone Number [facility] [address] [place] [phone] * (ABNORMAL) VITAMIN B12 (09/23/2024 9:30 AM CDT) Pathologist [facility] Vitamin B12 887(H) 213 - 816 pg/mL 09/23/2024 12:06 PM CDT [facility] Blood BLOOD SPECIMEN / Unknown Lab Venipuncture / Unknown 09/23/2024 9:30 AM CDT 09/23/2024 9:50 AM CDT Jensen Choi MD LAB - CHEMISTRY ORDERABLES Fi nal Result Performing Organization Address [facility] Co de Phone Number [facility] [address] [place] [phone] * (ABNORMAL) CBC W/O DIFFERENTIAL (09/23/2024 1:58 AM CDT) Pathologist [facility] WBC 2.2(L) 4.0 - 10.7 x10E9/L 09/23/2024 3:03 AM CDT [facility] RBC Count 2.77(L) 4.30 - 5.80 x10E12/L 09/23/2024 3:03 AM CDT [facility] Hemoglobin 8.9(L) 13.3 - 17.5 g/dL 09/23/2024 3:03 AM CDT [facility] Hematocrit 27.9(L) 38.7 - 51.1 % 09/23/2024 3:03 AM CDT [facility] MCV 100.7(H) 80.0 - 98.0 fL 09/23/2024 3:03 AM CDT [facility] MCH 32.1 26.7 - 33.6 pg 09/23/2024 3:03 AM CDT [facility] MCHC 31.9 31.7 - 36.3 g/dL 09/23/2024 3:03 AM CDT [facility] RDW-CV 13.9 11.3 - 14.8 % 09/23/2024 3:03 AM CDT [facility] Platelet Count 23(L) 150 - 420 x10E9/L 09/23/2024 3:03 AM CDT [facility] MPV 10.6 7.8 - 11.4 fL 09/23/2024 3:03 AM CDT [facility] Blood BLOOD SPECIMEN / Unknown Lab Venipuncture / Unknown 09/23/2024 1:58 AM CDT 09/23/2024 2:[address] Barakat MD LAB - HEMATOLOGY ORDERABLES F inal Result [facility] [address] [place] [address] * (ABNORMAL) BASIC METABOLIC PANEL (CALCIUM TOTAL) (09/23/2024 1:58 AM CDT) Glucose 114(H) 70 - 99 mg/dL 09/23/2024 3:18 AM [facility] Sodium 137 136 - 145 mmol/L 09/23/2024 3:18 AM T [facility] Potassium 3.5 3.5 - 5.1 mmol/L 09/23/2024 3:18 AM T [facility] Chloride 102 98 - 107 mmol/L 09/23/2024 3:18 AM [facility] CO2 25 22 - 29 mmol/L 09/23/2024 3:18 AM [facility] Calcium 8.9 8.4 - 10.4 mg/dL 09/23/2024 3:18 AM [facility] Anion Gap 10 6 - 16 mmol/L 09/23/2024 3:18 AM CDT [facility] BUN 23 7 - 26 mg/dL 09/23/2024 3:18 AM T [facility] Creatinine 4.97(H) 0.72 - 1.25 mg/dL 09/23/2024 3:18 AM [facility] eGFR by CKD-EPI 13(L) >=90 mL/min/1.7 3 m2 09/23/2024 3:18 AM [facility] Blood BLOOD SPECIMEN / Unknown Lab Venipuncture / Unknown 09/23/2024 1:58 AM CDT 09/23/2024 2:[address] Barakat MD LAB - CHEMISTRY ORDERABLES Fi nal Result Performing Organization Address [facility] Co de Phone Number [facility] [address] [place] [address] * TROPONIN-I HIGH SENSITIVE REFLEX 1HOUR (09/22/2024 3:47 PM CDT) Troponin I High Sensitive 13 <=35 ng/L 09/22/2024 4:13 PM CDT [facility] Delta Troponin I HS 09/22/2024 4:13 PM CDT [facility] Comment:Delta value intentio erika not calculated. Baseline to 1 hour specimen collection interval exceeded. Blood BLOOD SPECIMEN / Unknown Venipuncture / Unknown 09/22/2024 3:47 PM CDT 09/22/2024 3:47 PM CDT Anastasiia Urena DO LAB - CHEMISTRY ORDERABLES Mindy l Result Performing Organization Address [facility] de Phone Number [facility] [address] [place] [address] * CT ABDOMEN PELVIS W CONTRAST (09/22/2024 3:28 PM CDT) Anatomical Region Laterality Modality Abdomen, Pelvis Computed Tomogra phy 09/22/2024 3:39 PM CDT Impressions 09/22/2024 3:44 PM CDT IMPRESSION: Cardiomegaly. Gynecomastia. Cirrhotic liver. Extensive varices especially within the splenorenal region. There is marked splenomegaly. Small hiatal hernia. Questionable thickening of the wall of the stomach versus nondistention. If indicated upper endoscopy could be performed. Constipation. Bladder wall thickening with perivesicular fat stranding consistent with cystitis. Intra-abdominal ascites. > Interpreting Provider: Kiran Hayes MD on 09/22/2024 3:44 PM Narrative 09/22/2024 3:44 PM CDT Procedure: CT ABDOMEN PELVIS W CONTRAST Exam Date: 09/22/2024 3:29 PM Location: [facility] CT abdomen and pelvis with IV contrast Indication: R41.0: Disorientation, unspecified R11.10: Vomiting, unspecified R19.7: Diarrhea, unspecified Technique: CT examination of the abdomen and pelvis was performed from the lung bases through the pubis symphysis after the administration of IV contrast. Sagittal and coronal reconstructions were performed. Contrast: 100 cc of Isovue-370 was utilized. FINDINGS: The study was performed after the CT angiography head and neck. Images were obtained during equilibrium phase. There is cardiomegaly. There is basilar atelectasis. There are degenerative changes of the spine. There is gynecomastia. There is a nodular liver margin consistent with cirrhosis. Several small hypodensities are seen within the right lobe of the liver likely representing cysts. There is no intrahepatic biliary dilatation. Gallstones layer within the gallbladder. There is splenomegaly. Extensive varices are seen in the splenorenal region. There is no adrenal mass. Calcifications are seen within both kidneys. There is no hydronephrosis. Numerous renal cysts are present. There is atherosclerotic change of the abdominal aorta. There is no aneurysm. The IVC is normal in caliber. There is no retroperitoneal adenopathy. There is no mesenteric adenopathy. There is a small hiatal hernia. There is some questionable gastric wall thickening versus nondistention. If indicated upper endoscopy could be performed. The small bowel loops in the upper abdomen are nondistended with no bowel wall thickening. Feces is seen throughout the colon. There is no thickening of the wall of the ascending, transverse or descending colons. There is some ascites seen along the liver and splenic margins and in the paracolic gutters. Within the pelvis: A normal appendix is seen within the right lower quadrant. There is bladder wall thickening with perivesicular fat stranding consistent with cystitis. The prostate gland and seminal vesicles are normal. There is free fluid within the pelvis. There is no inguinal adenopathy. There is no pelvic adenopathy. The rectosigmoid colon is unremarkable. Procedure Note Kiran Hayes MD - 09/22/2024 Procedure: CT ABDOMEN PELVIS W CONTRAST Exam Date: 09/22/2024 3:29 PM Location: [facility] CT abdomen and pelvis with IV contrast Indication: R41.0: Disorientation, unspecified R11.10: Vomiting, unspecified R19.7: Diarrhea, unspecified Technique: CT examination of the abdomen and pelvis was performed fromthe lung bases through the pubis symphysis after the administration of IV contrast. Sagittal and coronal reconstructions were performed. Contrast: 100 cc of Isovue-370 was utilized. FINDINGS: The study was performed after the CT angiography head andneck. Images were obtained during equilibrium phase. There is cardiomegaly. There is basilar atelectasis. There aredegenerative changes of the spine. There is gynecomastia. There is a nodular liver margin consistent with cirrhosis. Several small hypodensities are seen within the right lobe of the liver likely representing cysts. There is no intrahepatic biliary dilatation. Gallstones layer within the gallbladder. There is splenomegaly.Extensive varices are seen in the splenorenal region. There is no adrenal mass. Calcifications are seen within both kidneys. There is no hydronephrosis. Numerous renal cysts are present. There is atherosclerotic change of the abdominal aorta. There is no aneurysm. The IVC is normal in caliber. There is no retroperitoneal adenopathy. There is no mesenteric adenopathy. There is a small hiatal hernia. There is some questionable gastric wall thickening versus nondistention. If indicated upper endoscopy could be performed. The small bowel loops in the upper abdomen are nondistended with no bowel wall thickening. Feces is seen throughout the colon.There is no thickening of the wall of the ascending, transverse or descending colons. There is some ascites seen along the liver and splenic marginsand in the paracolic gutters. Within the pelvis: A normal appendix is seen within the right lower quadrant. There is bladder wall thickening with perivesicular fatstranding consistent with cystitis. The prostate gland and seminal vesicles are normal. There is free fluid within the pelvis. There is no inguinal adenopathy. There is no pelvic adenopathy. The rectosigmoid colon is unremarkable. IMPRESSION: Cardiomegaly. Gynecomastia. Cirrhotic liver. Extensive varices especially within the splenorenal region. There is marked splenomegaly. Small hiatal hernia. Questionable thickening of the wall of the stomach versus nondistention. If indicated upper endoscopy could be performed. Constipation. Bladder wall thickening with perivesicular fat stranding consistent with cystitis. Intra-abdominal ascites. > Interpreting Provider: Kiran Hayes MD on 09/22/2024 3:44 PM Anastasiia Urena DO CT ORDERABLES Final Result * CT ANGIO BRAIN AND NECK (09/22/2024 3:27 PM CDT) Anatomical Region Laterality Modality Head Computed Tomogra phy 09/22/2024 3:33 PM CDT Impressions 09/22/2024 3:38 PM CDT IMPRESSION: Hard plaque at the right carotid bulb producing 50% stenosis of the right internal carotid artery. One may wish to correlate with carotid Dopplers. Otherwise unremarkable CT angiography of the head and neck. > Interpreting Provider: Kiran Hayes MD on 09/22/2024 3:38 PM Narrative 09/22/2024 3:38 PM CDT Procedure: CT ANGIO BRAIN AND NECK Exam Date: 09/22/2024 3:28 PM Location: [facility] CT angiography head and neck with IV contrast INDICATION: R41.0: Disorientation, unspecified TECHNIQUE: Thin section helical images were obtained from the aortic arch through the vertex of the skull after bolus administration of IV contrast. Sagittal, coronal and MIP reformats were created. Post processed 3-D images were created. Contrast: 100 cc of Isovue-370 was utilized. FINDINGS: No focal clinical symptoms were provided. The cervical spine is unremarkable. There is some dependent atelectasis in the visualized lung sawyer. The superior mediastinum is unremarkable. The thyroid gland is unremarkable. The supraclavicular regions demonstrates some prominent lymph nodes. The submandibular glands and parotid glands are normal. The airway appears normal. The paranasal sinuses are well aerated. The orbits are unremarkable. No abnormal contrast enhancement is seen within the brain parenchyma. Aortic arch appears normal. The arch vessels are unremarkable. The left common, internal and external carotid arteries are normal in caliber. The origin of the right common carotid artery appears normal. The right common carotid artery is normal in caliber. There is hard plaque at the carotid bulb using approximately 50% stenosis of the origin of the right internal carotid artery. The external carotid artery is normal in caliber. The origins of the vertebral arteries appear normal. The intraforaminal vertebral arteries normal in caliber. There is no stenosis or dissection. The intracranial portions of the vertebral bodies are normal in caliber. Normal posterior inferior cerebellar arteries are noted. The basilar artery is normal in caliber. The superior cerebellar arteries appear normal. The posterior cerebral arteries are normal in caliber with a origin of the right posterior cerebral artery from a patent posterior communicating artery. The petrous portions of the internal carotid arteries are normal in caliber. There is some atherosclerotic change of the cavernous and supraclinoid carotids. The A1 segments of the anterior cerebral arteries are normal in caliber. The distal branches of the intracerebral arteries are normal in caliber. The M1 segments of the middle cerebral arteries are normal in caliber. There is no focal stenosis, intraluminal thrombus or abrupt cut off. There is no pruning of the distal branches of the middle cerebral There is no aneurysm. Procedure Note Kiran Hayes MD - 09/22/2024 Procedure: CT ANGIO BRAIN AND NECK Exam Date: 09/22/2024 3:28 PM Location: [facility] CT angiography head and neck with IV contrast INDICATION: R41.0: Disorientation, unspecified TECHNIQUE: Thin section helical images were obtained from the aorticarch through the vertex of the skull after bolus administration of IVcontrast. Sagittal, coronal and MIP reformats were created. Post processed 3-Dimages were created. Contrast: 100 cc of Isovue-370 was utilized. FINDINGS: No focal clinical symptoms were provided. The cervical spineis unremarkable. There is some dependent atelectasis in the visualized lung sawyer. The superior mediastinum is unremarkable. The thyroid gland is unremarkable. The supraclavicular regions demonstrates some prominentlymph nodes. The submandibular glands and parotid glands are normal. Theairway appears normal. The paranasal sinuses are well aerated. The orbits are unremarkable. No abnormal contrast enhancement is seen within the brain parenchyma. Aortic arch appears normal. The arch vessels are unremarkable. The left common, internal and external carotid arteries are normal in caliber.The origin of the right common carotid artery appears normal. The rightcommon carotid artery is normal in caliber. There is hard plaque at the carotid bulb using approximately 50% stenosis of the origin of the rightinternal carotid artery. The external carotid artery is normal in caliber. The origins of the vertebral arteries appear normal. The intraforaminal vertebral arteries normal in caliber. There is no stenosis ordissection. The intracranial portions of the vertebral bodies are normal in caliber. Normal posterior inferior cerebellar arteries are noted. The basilarartery is normal in caliber. The superior cerebellar arteries appear normal.The posterior cerebral arteries are normal in caliber with a origin of the right posterior cerebral artery from a patent posteriorcommunicating artery. The petrous portions of the internal carotid arteries are normal in caliber. There is some atherosclerotic change of the cavernous and supraclinoid carotids. The A1 segments of the anterior cerebral arteries are normal in caliber. The distal branches of the intracerebral arteries are normal in caliber. The M1 segments of the middle cerebral arteries are normal in caliber. There is no focal stenosis, intraluminal thrombus or abrupt cut off.There is no pruning of the distal branches of the middle cerebral There is no aneurysm. IMPRESSION: Hard plaque at the right carotid bulb producing 50% stenosis of theright internal carotid artery. One may wish to correlate with carotidDopplers. Otherwise unremarkable CT angiography of the head and neck. > Interpreting Provider: Kiran Hayes MD on 09/22/2024 3:38 PM Anastasiia Urena DO CT ORDERABLES Final Result * CT HEAD WO CONTRAST (09/22/2024 3:24 PM CDT) Anatomical Region Laterality Modality Head Computed Tomogra phy 09/22/2024 3:31 PM CDT Impressions 09/22/2024 3:32 PM CDT IMPRESSION: No evidence for acute infarct, mass or hemorrhage. > Interpreting Provider: Kiran Hayes MD on 09/22/2024 3:32 PM Narrative 09/22/2024 3:32 PM CDT Procedure: CT HEAD WO CONTRAST Exam Date: 09/22/2024 3:26 PM Location: [facility] CT head without IV contrast INDICATION: R41.0: Disorientation, unspecified TECHNIQUE: CT examination of the head was performed from the base of the skull through the vertex using multiple axial images without IV contrast. Findings: The ventricles, sulci and basilar cisterns appear normal for the patient's stated age. There is no evidence of mass, hemorrhage or infarct. No extra-axial fluid collections are identified. There is no midline shift. There is no evidence of fracture. The visualized paranasal sinuses are well aerated. There is atherosclerotic change of the cavernous carotid arteries. Procedure Note Kiran Hayes MD - 09/22/2024 Procedure: CT HEAD WO CONTRAST Exam Date: 09/22/2024 3:26 PM Location: [facility] CT head without IV contrast INDICATION: R41.0: Disorientation, unspecified TECHNIQUE: CT examination of the head was performed from the base of the skull through the vertex using multiple axial images without IVcontrast. Findings: The ventricles, sulci and basilar cisterns appear normal forthe patient's stated age. There is no evidence of mass, hemorrhage orinfarct. No extra-axial fluid collections are identified. There is no midlineshift. There is no evidence of fracture. The visualized paranasal sinuses arewell aerated. There is atherosclerotic change of the cavernous carotid arteries. IMPRESSION: No evidence for acute infarct, mass or hemorrhage. > Interpreting Provider: Kiran Hayes MD on 09/22/2024 3:32 PM Anastasiia Urena DO CT ORDERABLES Final Result * TROPONIN-I HIGH SENSITIVE BASELINE + 1HR (09/22/2024 1:11 PM CDT) Troponin I High Sensitive 13 <=35 ng/L 09/22/2024 1:33 PM CDT [facility] Blood BLOOD SPECIMEN / Unknown Venipuncture / Unknown 09/22/2024 1:11 PM CDT 09/22/2024 1:11 PM CDT Anastasiia Urena DO LAB - CHEMISTRY ORDERABLES Mindy l Result [facility] [address] [place], [place] [id number] * XR CHEST 1VW PORTABLE (09/22/2024 12:19 PM CDT) Anatomical Region Laterality Modality Chest Radiographic Cindy ging 09/22/2024 12:2 1 PM CDT Impressions 09/22/2024 12:22 PM CDT IMPRESSION: Left greater than right hazy bibasilar opacities, which are nonspecific. > Interpreting Provider: Karlee Fuentes MD on 09/22/2024 12:22 PM Narrative 09/22/2024 12:22 PM CDT PROCEDURE: XR CHEST 1VW PORTABLE DATE/TIME OF EXAM: 09/22/2024 12:19 PM CLINICAL INFORMATION: None relevant/not provided if blank. Indication: R41.0: Disorientation, unspecified Additional History: COMPARISON: None. FINDINGS: There are hazy bibasilar interstitial opacities, more on the left than the right. No pneumothorax. No pleural effusion. Heart size projects prominently. Procedure Note Karlee Fuentes MD - 09/22/2024 PROCEDURE: XR CHEST 1VW PORTABLE DATE/TIME OF EXAM: 09/22/2024 12:19 PM CLINICAL INFORMATION: None relevant/not provided if blank. Indication: R41.0: Disorientation, unspecified Additional History: COMPARISON: None. FINDINGS: There are hazy bibasilar interstitial opacities, more on the left thanthe right. No pneumothorax. No pleural effusion. Heart size projects prominently. IMPRESSION: Left greater than right hazy bibasilar opacities, which are nonspecific. > Interpreting Provider: Karlee Fuentes MD on 09/22/2024 12:22 PM Anastasiia Urena DO DIAGNOSTIC IMAGING ORDERABLES F inal Result * SARS-COV-2 (COVID-19) FLU A/B RSV PCR RAPID (09/22/2024 11:20 AM CDT) Pathologist [facility] COVID-19 PCR Not detected Not detected 09/23/19 12:05 PM CDT [facility] Influenza A PCR Not detected Not detected 09/22/2024 12:05 PM CDT [facility] Influenza B PCR Not detected Not detected 09/22/2024 12:05 PM CDT [facility] RSV PCR Not detected Not detected 09/22/2024 12:05 PM CDT [facility] Microbiology SPECIMEN FROM NASOPHARYNGEAL STRUCTURE / Unknown Collection / Unknown 09/22/2024 11:20 AM CDT 09/22/2024 11:24 AM CDT Narrative [facility] - 09/22/2024 12:05 PM CDT This nucleic acid amplification assay has been authorized by the Food and Drug administration (FDA) under an Emergency Use Authorization (EUA). This test is only authorized for the [...] this EUA assay are available upon request. Sabrina TAYLOR LAB - MICROBIOLOGY ORDERABLES Final Result Performing Organization Address City/[facility]/ZIP Co de Phone Number [facility] [address] [place] [phone] * (ABNORMAL) SLIDE SCAN HEMATOLOGY (09/22/2024 11:20 AM CDT) Pathologist [facility] RBC Morphology REVIEWED 09/22/2024 11:55 AM CDT [facility] Ovalocytes MODERATE(A) (none) 09/22/2024 11:55 AM CDT [facility] Blood BLOOD SPECIMEN / Unknown Venipuncture / Unknown 09/22/2024 11:20 AM CDT 09/22/2024 11:24 AM CDT Sabrina TAYLOR LAB - HEMATOLOGY ORDERABLES F inal Result Performing Organization Address City/[facility]/ZIP Co de Phone Number [facility] [address] [place] [address] [phone] * (ABNORMAL) COMPREHENSIVE METABOLIC PANEL (09/22/2024 11:20 AM CDT) Only the most recent of3 resultswithin the time period is included. [facility] Glucose 120(H) 70 - 99 mg/dL 09/22/2024 11:50 AM [facility] Sodium 139 136 - 145 mmol/L 09/22/2024 11:50 AM [facility] Potassium 4.1 3.5 - 5.1 mmol/L 09/22/2024 11:50 AM [facility] Chloride 102 98 - 107 mmol/L 09/22/2024 11:50 AM [facility] CO2 25 22 - 29 mmol/L 09/22/2024 11:50 AM [facility] Calcium 8.7 8.4 - 10.4 mg/dL 09/22/2024 11:50 AM [facility] Anion Gap 12 6 - 16 mmol/L 09/22/2024 11:50 AM [facility] BUN 18 7 - 26 mg/dL 09/22/2024 11:50 AM [facility] Creatinine 3.70(H) 0.72 - 1.25 mg/dL 09/22/2024 11:50 AM [facility] Alkaline Phosphatase 168(H) 40 - 150 U/L 09/22/2024 11:50 AM [facility] ALT 14 0 - 55 U/L 09/22/2024 11:50 AM [facility] AST 36(H) 5 - 34 U/L 09/22/2024 11:50 AM [facility] Protein Total 7.0 6.4 - 8.3 gm/dL 09/22/2024 11:50 AM [facility] Albumin 3.1(L) 3.4 - 5.0 gm/dL 09/22/2024 11:50 AM [facility] Bilirubin Total 1.0 0.2 - 1.2 mg/dL 09/22/2024 11:50 AM [facility] eGFR by CKD-EPI 18(L) >=90 mL/min/1.7 3 m2 09/22/2024 11:50 AM [facility] Blood BLOOD SPECIMEN / Unknown Venipuncture / Unknown 09/22/2024 11:20 AM CDT 09/22/2024 11:24 AM T [facility] - 09/22/2024 11:50 AM CDT Specimen moderately hemolyzed, K, total protein and AST may be falsely elevated Sabrina TAYLOR LAB - CHEMISTRY ORDERABLES Fi nal Result Performing Organization Address [facility] de Phone Number [facility] [address] [place] [address] [phone] * ALCOHOL ETHYL BLOOD (09/22/2024 11:20 AM CDT) Ethanol <10.0 <10 mg/dL 09/22/2024 1:07 PM CDT [facility] Ethanol Calculated <0.010 <=0.100 gm/dL 09/22/2024 1:07 PM CDT [facility] Blood BLOOD SPECIMEN / Unknown Venipuncture / Unknown 09/22/2024 11:20 AM CDT 09/22/2024 11:24 AM CDT Narrative [facility] - 09/22/2024 1:07 PM CDT Ethanol Interp <10: None Detected Depression of CSN: >100 mg/dL Potentially Critical: >250 mg/dL Potentially Fatal >400 mg/dL Ethanol in the patient's blood will contribute to the osmolar gap. Ethanol's contribution to the osmolar gap can be estimated by dividing the concentration of ethanol in mg/dL by 4.6. This test is for clinical use only and does not equal a GRADY for legal purposes. Anastasiia Urena DO LAB - CHEMISTRY ORDERABLES Mindy l Result Performing Organization Address [facility] de Phone Number [facility] [address] [place] [phone] * EKG 12-LEAD (09/22/2024 11:08 AM CDT) Ventricular Rate 58 BPM [facility] MUSE Atrial Rate 58 BPM [facility] P-R Interval 260 ms [facility] QRS Duration ms 98 ms [facility] Q-T Interval ms 506 ms [facility] M[facility] QTC Calculation (Bezet) 496 ms [facility] MUSE Calculated P [place] 75 degrees [facility] MUSE Calculated R [place] 20 degrees [facility] MUSE Calculated T [place] 56 degrees SM MUSE Interpretation EKG SINUS BRADYCARDIA WITH 1ST DEGREE A-V BLOCK PROLONGED QT ABNORMAL ECG WHEN COMPARED WITH ECG OF 11-JUN-2024 19:45, T WAVE INVERSION NO LONGER EVIDENT IN ANTERIOR LEADS Confirmed by DO QUEVEDO STEPHANIE ([id number]) on 09/24/2024 7:11:59 AM [facility] MUSE 09/22/2024 11:0 8 AM CDT 09/24/2024 7:11 AM CDT Sabrina TAYLOR ECG ORDERABLES Edited Result - Final [facility] * GLUCOSE - POINT OF CARE (08/05/2024 2:27 PM MACHINE REPAIR PERSON) Pathologist [facility] Glucose WB/POC 99 70 - 99 mg/dL 08/05/2024 9:01 PM [facility] Specimen Type Venous 08/05/2024 9:01 PM [facility] Blood BLOOD SPECIMEN / Unknown 08/05/2024 2:27 PM MACHINE REPAIR PERSON 08/05/2024 9:01 PM MACHINE REPAIR PERSON Provider Unknown LAB - POINT OF CARE ORDERABLES Final Result [facility] [address] [place] [phone] [[email or web address]] [phone] * (ABNORMAL) PT-INR [facility] (07/24/2024 7:38 AM MACHINE REPAIR PERSON) PT 17.6(H) 12.1 - 14.8 Seconds 07/24/2024 8:36 AM [facility] INR 1.5 See Comment 07/24/2024 8:36 AM [facility] Comment:The suggested therap eutic range for standard coumadin (warfarin) therapy is an INR of 2.0-3.0. For high-risk patients (Mechanical Mitral Valve Prosthesis, etc.), the suggested prophylactic therapeutic range is an INR of 2.5-3.5. Blood BLOOD SPECIMEN / Unknown Lab Venipuncture / Unknown 07/24/2024 7:38 AM MACHINE REPAIR PERSON 07/24/2024 8:11 AM MACHINE REPAIR PERSON Melecio Graves MD LAB - COAGULATION ORDERABLES F inal Result Performing Organization Address City/[facility]/ZIP Co de Phone Number [address] [address], [facility] [phone] * HEPATITIS C AB SCREEN RFLX NAAT QUANT (05/21/2024 2:29 AM MACHINE REPAIR PERSON) Hepatitis C Antibody Non-react jaden Non-reac tive 05/22/2024 8:44 AM MACHINE REPAIR PERSON [facility] Comment:Hepatitis C Antibody screen indicates [...] Lab Venipuncture / Unknown 05/21/2024 2:29 AM MACHINE REPAIR PERSON 05/21/2024 3:08 AM MACHINE REPAIR PERSON Result [facility] Uli Murphy MD LAB - CHEMISTRY ORDERABLES Fi nal Result Performing Organization Address [facility]/ZIP Co de Phone Number [address] [address], [facility] [phone] * HIV-1 HIV-2 ANTIBODY + HIV P24 AG PANEL (05/21/2024 2:29 AM MACHINE REPAIR PERSON) HIV Antigen/Antibod y 1 & 2 Non-reacti ve Non-react jaden 05/22/2024 8:44 AM MACHINE REPAIR PERSON [facility] Comment:No Laboratory eviden ce of HIV infection. Blood BLOOD SPECIMEN / Unknown Lab Venipuncture / Unknown 05/21/2024 2:29 AM MACHINE REPAIR PERSON 05/21/2024 3:08 AM MACHINE REPAIR PERSON Result [facility] Uli Murphy MD LAB - CHEMISTRY ORDERABLES Fi nal Result Performing Organization Address City/[facility]/ZIP Co de Phone Number [address] [address], [facility] [phone] * (ABNORMAL) LIPID PROFILE (12/25/2023 8:13 AM CDT) Cholesterol Total 104 <200 mg/dL 12/25/2023 9:18 AM T [facility] HDL 37(L) >40 mg/dL 12/25/2023 9:18 AM T [facility] Comment: ATP III Classification of HDL Cholesterol: <40 mg/dL: Considered a major risk factor. >60 mg/dL: Considered a negative risk factor. LDL Calculated 56 <100 mg/dL 12/25/2023 9:18 AM T [facility] Comment: ATP III Classification of LDL Cholesterol: <100 mg/dL: Optimal 100 - 129 mg/dL: Near Optimal/Above Optimal 130 - 159 mg/dL: Borderline High 160 - 189 mg/dL: High >190 mg/dL: Very High Triglycerides 57 <150 mg/dL 12/25/2023 9:18 AM [facility] Comment: ATP III Classification of Triglycerides: <150 mg/dL: Normal 150 - 199 mg/dL: Borderline High 200 - 400 mg/dL: High >500 mg/dL: Very High Blood BLOOD SPECIMEN / Unknown Lab Venipuncture / Unknown 12/25/2023 8:13 AM CDT 12/25/2023 8:37 AM CDT Eugenie Dsouza RIDES SUPERVISOR-ENGINEERING TECHNICIAN PARKING LAB - CHEMISTRY ORD ERABLES Final Result Performing Organization Address [facility]/State/ZIP Co de Phone Number [facility] [address] [place] [address], [facility] [phone] from Last 3 Months or Most Recently Relevant to Health Maintenance Insurance MEDICARE ANTHEM MEDICARE Advance Directives Documents on File Type Date Recorded Patient Industrial Technician Expl anation Adv Directive/Living Will/POA 06/05/2019 * Full Code (Latest Code Status on File) Date Activated Date Inactivated Comments 09/22/2024 10:48 PM 09/25/2024 3:03 PM * Full Code Date Activated Date Inactivated Comments 06/11/2024 7:21 PM 06/14/2024 12:17 PM * Full Code Date Activated Date Inactivated Comments 05/19/2024 7:08 PM 05/28/2024 4:47 PM * Full Code Date Activated Date Inactivated Comments 10/29/2023 1:00 PM 11/02/2023 9:13 PM * Full Code Date Activated Date Inactivated Comments 02/21/2022 2:16 PM 02/22/2022 12:05 PM Care Teams Dye Line Operator Relationship Specialty Start Date End Date Efren Ramirez DO [address] [place] [address] PCP - General Internal Medicine 06/12/24
--- OUTSIDE RECORDS SUMMARY | 2024-10-13 16:49 | XMS_ITS | Encounter Summary ---
Author Organization [facility] Address [address] [place] [address] Care Team Providers Care Returned Item Clerk Name Role Phone Dm Pena MD Primary Care Provider [phone] Efren Ramirez DO Primary Care Provider Encounter Details Date Type Department Care Team (Late st Contact Info) Description 01/26/2019 Procedure visit [facility] ANESTHESIA [address] [place] [address] Levi Candleario, DO [address] [facility] [address] [place] [address] Anesthesia Record Procedure Summary Procedure [...] difficulty? Answer Date of Assessment Author No 01/24/2019 2:51 AM CDT Shashi Mejia RN * Is person blind or have serious difficulty seeing? Answer Date of Assessment Author No 01/24/2019 2:51 AM CDT Shashi Mejia RN * Does person have serious difficulty walking/climbing stairs? Answer Date of Assessment Author No 01/24/2019 2:51 AM CDT Shashi Mejia RN * Does person have difficulty dressing/bathing? Answer Date of Assessment Author No 01/24/2019 2:51 AM CDT Shashi Mejia RN * Does person have difficulty doing errands alone? Answer Date of Assessment Author No 01/24/2019 2:51 AM CDT Shashi Mejia RN documented as of this encounter Mental Status * Does person have difficulty concentrating/remembering/making decisions? Answer Entry Date Author No 01/24/2019 2:51 AM Shashi Lake RN documented in this encounter Plan of Treatment Upcoming Encounters Date Type Department Care Team (Late st Contact Info) Description 05/18/2025 11:00 AM COMMERCIAL PILOT Office [place] [facility] [place] [address] [place] [address], [facility] [place] [address] Melecio Graves MD [address] [place] [address] [place] [address] documented as of this encounter Visit Diagnoses Not on filedocumented in this encounter Additional Health Concerns Infection Onset Date Last Indicated Resolved Time COVID-19 Under Investigation 09/20/2020 09/20/2020 09/20/2020 10:10 PM CDT COVID-19 Under Investigation 07/19/2021 07/19/2021 07/19/2021 1:09 PM COMMERCIAL PILOT COVID-19 Confirmed 07/19/2021 07/19/2021 4:33 AM COMMERCIAL PILOT COVID-19 Under Investigation 10/29/2023 10/29/2023 10/29/2023 9:28 AM CDT COVID-19 Under Investigation 09/22/2024 09/22/2024 09/22/2024 12:05 PM CDT documented as of this encounter Care Teams Returned Item Clerk Relationship Specialty Start Date End Date Dm Pena MD [address] [address] PCP - General Family Medicine 02/06/19 06/11/24 Efren Ramirez DO [address] [place] [address] PCP - General Internal Medicine 06/12/24 documented as of this encounter
--- OUTSIDE RECORDS SUMMARY | 2024-10-13 16:49 | XMS_ITS | Encounter Summary ---
Author Organization [facility] Address Formerly [facility], [facility] [place] [address] Care Team Providers Care Newspaper Photographer Name Role Phone Lonnie Schaefer DO Primary Care Provider Dm Pena MD Primary Care Provider [phone] Encounter Details Date Type Department Care Team (Late st Contact Info) Description 09/15/2017 Abstract [facility] CONVERSION [address] [place] [address] , Generic Conversion, Social History Tobacco Use [...] on filedocumented in this encounter Care Teams Newspaper Photographer Relationship Specialty Start Date End Date Lonnie Schaefer DO [address] [place] [address] PCP - General 11/17/14 10/22/18 Dm Pena MD [address] [address] PCP - General FAMILY PRACTICE 10/23/18 documented as of this encounter
[2024-10-13 17:01] LABS: Hematocrit 27.6 % (42.0-52.0); Hemoglobin 8.9 g/dL (14.0-18.0); Immature Platelet Fraction Pct 5.4 % (0.9-11.2); Mean Corpuscular HGB Conc 32.2 g/dl (32-36); Mean Corpuscular Hemoglobin 32.1 pg (26-34); Mean Corpuscular Volume 99.6 fl (80-100); Mean Platelet Volume 11.7 fl (7.4-10.4); Red Blood Count 2.77 M/mm3 (4.6-6.20); Red Cell Distribution Width 14.1 % (11.5-14.5)
[2024-10-13 17:06] LABS: Alanine Aminotransferase 16 U/L (6-50); Albumin Level 3.7 g/dL (3.5-5.1); Alkaline Phosphatase 169 U/L (38-126); Ammonia 49 umol/L (9-30); Anion Gap 9 mmol/L (4-12); Aspartate Amino Transferase 25 U/L (17-59); Bilirubin,Total 1.2 mg/dL (0.2-1.3); Blood Urea Nitrogen 34 mg/dL (9-20); Calcium 9.3 mg/dL (8.4-10.2); Carbon Dioxide 28 mmol/L (22-30); Chloride 99 mmol/L (98-107); Estimated CRCL calculation 17 ml/min; Estimated Glomerular Filt Rate 14; Glucose 91 mg/dL (65-110); Sodium 136 mmol/L (137-145)
[2024-10-13 17:18] LABS: Troponin I 0.016 ng/mL (0.000-0.034)
[2024-10-13 17:19] LABS: INR 1.5; Prothrombin Time 18.3 Seconds (11.1-14.7)
[2024-10-13 17:20] LABS: Partial Thromboplastin Time 35.8 Seconds (22.3-36.8)
[2024-10-13 17:23] LABS: White Blood Count 1.8 K/mm3 (4.5-10.0)
[2024-10-13 17:24] LABS: Platelet Count Result 25 k/mm3 (150-375)
[2024-10-13 17:33] LABS: Band Neutrophils Percent 1 % (0-6); Basophils Absolute Manual 0.01 K/mm3 (0.0-0.1); Basophils Percent Manual 1 % (0-1); Eosinophils Absolute Manual 0.03 K/mm3 (0.02-0.50); Eosinophils Percent Manual 2 % (0-4); Lymphocytes Absolute Manual 0.46 K/mm3 (1.1-4.5); Monocytes Absolute Manual 0.05 K/mm3 (0.1-0.90); Monocytes Percent Manual 3 % (3-9); Neutrophils Absolute Manual 1.22 K/mm3 (1.3-6.7); Neutrophils Percent Manual 67 % (46-73); Total Cells Counted 100
[2024-10-13 17:34] LABS: Platelet Estimate Decreased (Adequate)
[2024-10-13 17:35] LABS: Hypochromasia 1+; Schistocytes None Seen
--- NOTE | 2024-10-13 17:40 | PC.NURSE ---
Patient A&Ox4 at this time, but family states patient speech is slightly slurred at this time
--- OUTSIDE RECORDS SUMMARY | 2024-10-13 17:47 | XMS_ITS | Clinical Summary ---
Author Organization [facility] [employer] Address [address] [place] [address] Care Team Providers Care Theater Education Teacher Name Role Phone Efren Ramirez DO Primary Care Provider Source Comments [facility],non-owned Affiliates and Associated Physician Practices is amultiple site organization consisting of ambulatory clinics and hospital sitesin [place], [place], [place] and [place]. This disclosure is being madepursuant to the Care Everywhere program and may not contain all information available regarding this patient. Last updated 18.[facility] [employer] Allergies No known active allergies Medications * [...] 80 PTH Intact 546.1 (H) 12/07/22 13:03 Swpll-8-Nkpsayuwjbe 119 Igklq-2-Fwxiforpojr Phenotype M1S Ceruloplasmin 25 Osmolality Calculated 301 [...] 04/26/23 09:45 04/26/23 09:46 dsDNA Antibody 15 [facility] Antibodies 2 Fofana (FRANCESCA) Antibody 6 Complement [...] Has completed Hep B vaccination series-scanned into [facility] #1 alcohol associated liver disease, prior decompensation, [...] It is the impression of this social security specialist that Leonid Cuello has several positive factors for Liver/Kidney transplant candidacy including knowledge of illness, sufficient insurance coverage, stable financial situation for post transplant needs, adequate support system, and appropriate discharge plan. Pt has committed to lifelong abstinence and will maintain alcohol free household RP/Provider impression scanned to file Court docs scanned to file Provider impression charted 11/20 Plan: lime kiln worker helper to provide supportive services as needed. Patient appears to be a reasonable candidate for transplant from a psychosocial perspective. Post transplant arrangement forms are needed prior to being listed. Psychiatric Consult Recommended: no Transplant Transonic Engineer: Tala Villalta LCSW Liver Transplant Education 12/07/2022 Linh Forde, asset protection leadMirror [facility] 11/29/22 - +chew tobacco Findings: -No [...] committee and are final. Amelia Corral MD wood pile driver operator Transplant Surgery [facility] Transplant Surgery Consultation 01/21/24 Dr. Corral - need note Transplant Nephrology Consultation 01/29/23 I consider the patient an excellent candidate for a simultaneous Liver-Kidney Transplantation. The patient needs ECHO of heart due to a grade 2-3/6 systolic murmur all over the anterior precordium radiating to carotids and anterior Lt axillary line. Also check Anti-DS-DNA Ab, Anti-Fofana Ab, Anti-[facility] Ab, C3, C4, CH50, Lupus anticoagulants titer. [...] Department Care Team Description 10/10/2024 Orders Only [facility] TRANSPLANT [address] [place] [phone] Linh Forde RN ESRD (end stage renal disease) on dialysis (HCC); 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); Alcoholic cirrhosis of liver without ascites (HCC); Pre-liver transplant, listed; Pre-kidney transplant, listed 10/03/2024 Orders Only [facility] TRANSPLANT [address] [place] [phone] Linh Forde RN ESRD (end stage renal disease) on dialysis (HCC); 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); Alcoholic cirrhosis of liver without ascites (HCC); Pre-liver transplant, listed; Pre-kidney transplant, listed 09/30/2024 1:00 PM CDT Office Visit [facility] - [address] [facility] [address] [place] [phone] Melecio Graves MD Decompensated hepatic cirrhosis (HCC) (Primary Dx) 09/30/2024 Travel 09/26/2024 Orders Only [facility] TRANSPLANT [address] [place] [phone] Linh Forde RN ESRD (end stage renal disease) on dialysis; 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; Alcoholic cirrhosis of liver without ascites; Pre-liver transplant, listed; Pre-kidney transplant, listed 09/22/2024 11:23 AM CDT - 09/25/2024 1:58 PM CDT Hospital Encounter [facility] 3E MED/ONC [address] [place] [address] Anastasiia Urena DO Suresh, Aditya K, MD Hambolu, Kehinde, MD Internal Medicine Discharge Disposition: Home or Self Care 09/22/2024 Travel 09/19/2024 Orders Only [facility] TRANSPLANT [address] [place] [phone] Linh Forde RN ESRD (end stage renal disease) on dialysis; 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; Alcoholic cirrhosis of liver without ascites; Pre-liver transplant, listed; Pre-kidney transplant, listed 09/12/2024 Orders Only [facility] TRANSPLANT [address] [place] [phone] Linh Forde RN ESRD (end stage renal disease) on dialysis; 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; Alcoholic cirrhosis of liver without ascites; Pre-liver transplant, listed; Pre-kidney transplant, listed 09/11/2024 8:30 AM CDT Office Visit [facility] - Orthopedics [address] [facility] [place] [phone] Yaima Dobbins MD Pyogenic arthritis of right knee joint, due to unspecified organism (Primary Dx) 09/11/2024 Travel 09/10/2024 Orders Only [facility] TRANSPLANT [address] [place] [phone] Linh Forde RN ESRD (end stage renal disease) on dialysis; MPGN (membranoproliferativ e glomerulonephritides) ; Alcoholic cirrhosis of liver without ascites; S/P hernia repair 09/10/2024 Orders Only [facility] TRANSPLANT [address] [place] [phone] Linh Forde RN Alcoholic cirrhosis of liver without ascites ; ESRD (end stage renal disease) on dialysis; MPGN (membranoproliferativ e glomerulonephritides) ; ESRD on dialysis; S/P hernia repair 09/05/2024 Orders Only [facility] TRANSPLANT [address] [place] [phone] Linh Forde RN ESRD (end stage renal disease) on dialysis; 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; Alcoholic cirrhosis of liver without ascites; Pre-liver transplant, listed; Pre-kidney transplant, listed 09/04/2024 Travel 08/29/2024 Orders Only [facility] TRANSPLANT [address] [place] [phone] Linh Forde RN ESRD (end stage renal disease) on dialysis; 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; Alcoholic cirrhosis of liver without ascites; Pre-liver transplant, listed; Pre-kidney transplant, listed 08/25/2024 Orders Only [facility] TRANSPLANT [address] [place] [address] Linh Forde RN Pre-liver transplant, listed ; ESRD (end stage renal disease) on dialysis; 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; Alcoholic cirrhosis of liver without ascites; Pre-kidney transplant, listed 08/07/2024 Telephone [facility] - Pulmonology [address] [place] [phone] Yaima Dobbins MD Question 08/05/2024 8:40 PM SENIOR SITE MANAGER - 08/05/2024 8:52 PM SENIOR SITE MANAGER Emergency [facility] EMERGENCY DEPARTMENT [address] [place] [phone] Discharge Disposition: Left Against Medical Advice/Discontinued Care 08/05/2024 10:00 AM SENIOR SITE MANAGER Clinical Support [facility] TXP [facility] [address] [place] [phone] Unknown, Provider S/P hernia repair 08/05/2024 Travel 07/24/2024 7:05 AM SENIOR SITE MANAGER - 07/24/2024 11:59 PM SENIOR SITE MANAGER Hospital Encounter [facility] LAB OP DRAW STATION [address] [place] [phone] Discharge Disposition: Home or Self Care 07/24/2024 Travel 07/22/2024 Telephone [facility] - GI [address] [place] [phone] Jackson Melvin MD Physical Therapy from Last [...] Recorded Patient Health Questionnaire-2 Score 1 09/10/2024 [facility] [place] of Occupat ional Health - Occupational Stress [...] any time in the past 12 m [facility], were you homeless or living in [...] st Contact Info) Description 05/18/2025 11:00 AM SENIOR SITE MANAGER Office Visit [facility] - GI [address] [facility] [facility] [place] [address] Melecio Graves MD [address] [facility] 2L DIV [place] [address] Health Maintenance Due Date Last Done Comments [...] last dose Medical Devices Implanted Type Area Locum Tenens Hospitalist Device Identifier Shelf Expiration Date Model / Serial / Lot Kit Durathane Drflw Embosafe Chrnc Dlys Implanted:Qty: 1 on 03/07/2019 by Trav Merrill MD at [facility] Right: Chest [employer] 03/31/2021 [id number] / / [id number] Graft Vasc 6mm 40cm Ptfe Flixene Sldr - [id number] Implanted:Qty: 1 on 02/21/2022 by Kiko Pena MD at [facility] Left: Arterial Maquet 07/20/2023 [id number] / [id number] / Mesh Srg Parietex Progrip 14x9cm Slf Implanted:Qty: 1 on 07/11/2024 by Theron Medellin MD at [facility] Right: Inguinal Cov[employer]ien [id number] 08/29/2028 [id number] / / [id number] Procedures Procedure Name Priority Date/Time Associated Diagnosis [...] COMPREHENSIVE METABOLIC PANEL STAT 08/05/2024 2:28 PM SENIOR SITE MANAGER GLUCOSE - POINT OF CARE Routine 08/05/2024 2:27 PM SENIOR SITE MANAGER DIFFERENTIAL MANUAL Routine 07/24/2024 7 :38 AM SENIOR SITE MANAGER Pre-liver transplant, listed Pre-kidney transplant, listed Alcoholic cirrhosis of liver with ascites ESRD on dialysis Stage 5 chronic kidney disease MPGN (membranoproliferat jaden glomerulonephritide s) PT-INR [facility] Routine 07/24/2024 7:38 AM SENIOR SITE MANAGER Pre-liver transplant, listed Pre-kidney transplant, listed Alcoholic cirrhosis of liver with ascites ESRD on dialysis Stage 5 chronic kidney disease MPGN (membranoproliferat jaden glomerulonephritide s) CBC W AUTO DIFFERENTIAL Routine 07/24/2024 7:38 AM SENIOR SITE MANAGER Pre-liver transplant, listed Pre-kidney transplant, listed Alcoholic cirrhosis of liver with ascites ESRD on dialysis Stage 5 chronic kidney disease MPGN (membranoproliferat jaden glomerulonephritide s) COMPREHENSIVE METABOLIC PANEL Routine 07/24/2024 7:38 AM SENIOR SITE MANAGER Pre-liver transplant, listed Pre-kidney transplant, listed Alcoholic cirrhosis of liver with ascites ESRD on dialysis Stage 5 chronic kidney disease MPGN (membranoproliferat jaden glomerulonephritide s) HEPATITIS C AB SCREEN RFLX NAAT QUANT Routine 05/21/2024 2:29 AM SENIOR SITE MANAGER HIV-1 HIV-2 ANTIBODY + HIV P24 AG PANEL STAT 05/21/2024 2:29 AM SENIOR SITE MANAGER LIPID PROFILE Routine 12/25/2023 8:13 AM CDT [...] - 74 % 09/25/2024 10:49 AM CDT [facility] Lymphocyte % 29 17 - 47 % 09/25/2024 10:49 AM CDT [facility] Monocyte % 10 3 - 11 % 09/25/2024 10:49 AM CDT [facility] Eosinophil % 4 0 - 7 % 09/25/2024 10:49 AM CDT [facility] Basophil % 2 0 - 2 % 09/25/2024 10:49 AM CDT [facility] Neutrophil Absolute 0.94(L) 1.60 - 7.50 x10E9/L 09/25/2024 10:49 AM CDT [facility] Lymphocyte Absolute 0.49(L) 1.00 - 4.40 x10E9/L 09/25/2024 10:49 AM CDT [facility] Monocyte Absolute 0.17 0.15 - 1.00 x10E9/L 09/25/2024 10:49 AM CDT [facility] Eosinophil Absolute 0.07 0.00 - 0.60 x10E9/L 09/25/2024 10:49 AM CDT [facility] Basophil Absolute 0.03 0.00 - 0.13 x10E9/L 09/25/2024 10:49 AM CDT [facility] RBC Morphology REVIEWED 09/25/2024 10:49 AM CDT [facility] Ovalocytes MODERATE(A) (none) 09/25/2024 10:49 AM T [facility] Blood BLOOD SPECIMEN / Unknown Lab Venipuncture / Unknown 09/25/2024 8:43 AM CDT 09/25/2024 9:09 AM CDT us Jensen Choi MD LAB - HEMATOLOGY ORDERABLES F inal Result [facility] [address] [place] [address] * (ABNORMAL) CBC W AUTO DIFFERENTIAL (09/25/2024 8:43 AM CDT) Only the most recent of3 resultswithin the time period is included. WBC 1.7(L) 4.0 - 10.7 x10E9/L 09/25/2024 10:49 AM CDT [facility] RBC Count 2.58(L) 4.30 - 5.80 x10E12/L 09/25/2024 10:49 AM CDT [facility] Hemoglobin 8.7(L) 13.3 - 17.5 g/dL 09/25/2024 10:49 AM CDT [facility] Hematocrit 26.0(L) 38.7 - 51.1 % 09/25/2024 10:49 AM CDT [facility] MCV 100.8(H) 80.0 - 98.0 fL 09/25/2024 10:49 AM CDT [facility] MCH 33.7(H) 26.7 - 33.6 pg 09/25/2024 10:49 AM CDT [facility] MCHC 33.5 31.7 - 36.3 g/dL 09/25/2024 10:49 AM CDT [facility] RDW-CV 13.7 11.3 - 14.8 % 09/25/2024 10:49 AM CDT [facility] Platelet Count 20(L) 150 - 420 x10E9/L 09/25/2024 10:49 AM CDT [facility] MPV 11.1 7.8 - 11.4 fL 09/25/2024 10:49 AM CDT [facility] Blood BLOOD SPECIMEN / Unknown Lab Venipuncture / Unknown 09/25/2024 8:43 AM CDT 09/25/2024 9:09 AM CDT Jensen Choi MD LAB - HEMATOLOGY ORDERABLES F inal Result Performing Organization Address City/State/[facility] Co de Phone Number [facility] [address] [place] [phone] * AMMONIA (09/25/2024 4:09 AM CDT) Only the most recent of4 resultswithin the time period is included. Ammonia 72 18 - 72 umol/L 09/25/2024 5:38 AM CDT [facility] Blood BLOOD SPECIMEN / Unknown Lab Venipuncture / Unknown 09/25/2024 4:09 AM CDT 09/25/2024 5:16 AM CDT Jensen Choi MD LAB - CHEMISTRY ORDERABLES Fi nal Result Performing Organization Address City/[facility]/ZIP Co de Phone Number [facility] [address] [place] [phone] * HEPATITIS B SURFACE ANTIGEN W RFLX CONFIRMATION (09/24/2024 3:51 PM CDT) [facility] HBsAg Non Reactive Non Reactive 09/24/2024 5:44 PM CDT [facility] Blood BLOOD SPECIMEN / Unknown Lab Venipuncture / Unknown 09/24/2024 3:51 PM CDT 09/24/2024 4:04 PM CDT us Noé Benton MD LAB - CHEMISTRY ORDERABLE S Final Result Performing Organization Address [facility] Co de Phone Number [facility] [address] [place] [address] * (ABNORMAL) HEPATIC FUNCTION PANEL (09/24/2024 9:58 AM CDT) [facility] Alkaline Phosphatase 142 40 - 150 U/L 09/24/2024 11:01 AM CDT [facility] ALT 6 6 - 57 U/L 09/24/2024 11:01 AM CDT [facility] AST 23 10 - 48 U/L 09/24/2024 11:01 AM CDT [facility] Protein Total 5.7(L) 6.4 - 8.3 gm/dL 09/24/2024 11:01 AM CDT [facility] Albumin 2.8(L) 3.4 - 5.0 gm/dL 09/24/2024 11:01 AM CDT [facility] Bilirubin Total 1.1 0.2 - 1.2 mg/dL 09/24/2024 11:01 AM CDT [facility] Bilirubin Direct 0.372 0.10 - 0.50 mg/dL 09/24/2024 11:01 AM CDT [facility] Blood BLOOD SPECIMEN / Unknown Lab Venipuncture / Unknown 09/24/2024 9:58 AM CDT 09/24/2024 10:45 AM CDT us Jensen Cohi MD LAB - CHEMISTRY ORDERABLES Fi nal Result [facility] [address] [place] [address] * EEG AWAKE OR DROWSY ROUTINE (09/23/2024 4:38 PM CDT) Narrative [facility]NY - 09/23/2024 4:38 PM CDT Harrison Lilly MD 09/23/2024 4:40 PM [facility] 3E MED/ONC [address] [facility] [address] Electroencephalogram Leonid Cuello 09/23/2024 Indication: Leonid Cuello [...] ORDERABLES Fin al Result Performing Organization Address City/[facility]/ZIP Co de Phone Number [facility] * (ABNORMAL) LEVETIRACETAM LEVEL (09/23/2024 12:58 PM CDT) Levetiracetam 60.36(H) 10 - 40 ug/mL 09/23/2024 1:41 PM CDT [facility] Blood BLOOD SPECIMEN / Unknown Lab Venipuncture / Unknown 09/23/2024 12:58 PM CDT 09/23/2024 1:13 PM CDT Shamika Hayes PA-C LAB - THERAPEUTIC DRUG M ONITORING ORDERABLES Final Result Performing Organization Address [facility] de Phone Number [facility] [address] [place], [place] [phone] * TSH REFLEX FREE T4 (09/23/2024 9:30 AM CDT) TSH 1.799 0.350 - 4.940 uIU/mL 09/23/2024 10:49 AM CDT [facility] Blood BLOOD SPECIMEN / Unknown Lab Venipuncture / Unknown 09/23/2024 9:30 AM CDT 09/23/2024 9:50 AM CDT Jensen Choi MD LAB - CHEMISTRY ORDERABLES Fi nal Result Performing Organization Address [facility] Co de Phone Number [facility] [address] [place] [phone] * (ABNORMAL) FOLATE (09/23/2024 9:30 AM CDT) Folate 3.9(L) 7.0 - 31.4 ng/mL 09/23/2024 10:49 AM CDT [facility] Blood BLOOD SPECIMEN / Unknown Lab Venipuncture / Unknown 09/23/2024 9:30 AM CDT 09/23/2024 9:50 AM CDT Jensen Choi MD LAB - CHEMISTRY ORDERABLES Fi nal Result Performing Organization Address City/[facility]/ZIP Co de Phone Number [facility] [address] [place] [phone] * (ABNORMAL) VITAMIN B12 (09/23/2024 9:30 AM CDT) Pathologist [facility] Vitamin B12 887(H) 213 - 816 pg/mL 09/23/2024 12:06 PM CDT [facility] Blood BLOOD SPECIMEN / Unknown Lab Venipuncture / Unknown 09/23/2024 9:30 AM CDT 09/23/2024 9:50 AM CDT Jensen Choi MD LAB - CHEMISTRY ORDERABLES Fi nal Result Performing Organization Address [facility] Co de Phone Number [facility] [address] [place] [phone] * (ABNORMAL) CBC W/O DIFFERENTIAL (09/23/2024 1:58 AM CDT) Pathologist [facility] WBC 2.2(L) 4.0 - 10.7 x10E9/L 09/23/2024 3:03 AM CDT [facility] RBC Count 2.77(L) 4.30 - 5.80 x10E12/L 09/23/2024 3:03 AM CDT [facility] Hemoglobin 8.9(L) 13.3 - 17.5 g/dL 09/23/2024 3:03 AM CDT [facility] Hematocrit 27.9(L) 38.7 - 51.1 % 09/23/2024 3:03 AM CDT [facility] MCV 100.7(H) 80.0 - 98.0 fL 09/23/2024 3:03 AM CDT [facility] MCH 32.1 26.7 - 33.6 pg 09/23/2024 3:03 AM CDT [facility] MCHC 31.9 31.7 - 36.3 g/dL 09/23/2024 3:03 AM CDT [facility] RDW-CV 13.9 11.3 - 14.8 % 09/23/2024 3:03 AM CDT [facility] Platelet Count 23(L) 150 - 420 x10E9/L 09/23/2024 3:03 AM CDT [facility] MPV 10.6 7.8 - 11.4 fL 09/23/2024 3:03 AM CDT [facility] Blood BLOOD SPECIMEN / Unknown Lab Venipuncture / Unknown 09/23/2024 1:58 AM CDT 09/23/2024 2:[address] Barakat MD LAB - HEMATOLOGY ORDERABLES F inal Result [facility] [address] [place] [address] * (ABNORMAL) BASIC METABOLIC PANEL (CALCIUM TOTAL) (09/23/2024 1:58 AM CDT) Glucose 114(H) 70 - 99 mg/dL 09/23/2024 3:18 AM [facility] Sodium 137 136 - 145 mmol/L 09/23/2024 3:18 AM T [facility] Potassium 3.5 3.5 - 5.1 mmol/L 09/23/2024 3:18 AM T [facility] Chloride 102 98 - 107 mmol/L 09/23/2024 3:18 AM [facility] CO2 25 22 - 29 mmol/L 09/23/2024 3:18 AM [facility] Calcium 8.9 8.4 - 10.4 mg/dL 09/23/2024 3:18 AM [facility] Anion Gap 10 6 - 16 mmol/L 09/23/2024 3:18 AM CDT [facility] BUN 23 7 - 26 mg/dL 09/23/2024 3:18 AM T [facility] Creatinine 4.97(H) 0.72 - 1.25 mg/dL 09/23/2024 3:18 AM [facility] eGFR by CKD-EPI 13(L) >=90 mL/min/1.7 3 m2 09/23/2024 3:18 AM [facility] Blood BLOOD SPECIMEN / Unknown Lab Venipuncture / Unknown 09/23/2024 1:58 AM CDT 09/23/2024 2:[address] Barakat MD LAB - CHEMISTRY ORDERABLES Fi nal Result Performing Organization Address [facility] Co de Phone Number [facility] [address] [place] [address] * TROPONIN-I HIGH SENSITIVE REFLEX 1HOUR (09/22/2024 3:47 PM CDT) Troponin I High Sensitive 13 <=35 ng/L 09/22/2024 4:13 PM CDT [facility] Delta Troponin I HS 09/22/2024 4:13 PM CDT [facility] Comment:Delta value intentio erika not calculated. Baseline to 1 hour specimen collection interval exceeded. Blood BLOOD SPECIMEN / Unknown Venipuncture / Unknown 09/22/2024 3:47 PM CDT 09/22/2024 3:47 PM CDT Anastasiia Urena DO LAB - CHEMISTRY ORDERABLES Mindy l Result Performing Organization Address [facility] de Phone Number [facility] [address] [place] [address] * CT ABDOMEN PELVIS W CONTRAST (09/22/2024 [...] CONTRAST Exam Date: 09/22/2024 3:29 PM Location: [facility] CT abdomen and pelvis with IV contrast [...] CONTRAST Exam Date: 09/22/2024 3:29 PM Location: [facility] CT abdomen and pelvis with IV contrast [...] NECK Exam Date: 09/22/2024 3:28 PM Location: [facility] CT angiography head and neck with IV [...] NECK Exam Date: 09/22/2024 3:28 PM Location: [facility] CT angiography head and neck with IV [...] CONTRAST Exam Date: 09/22/2024 3:26 PM Location: [facility] CT head without IV contrast INDICATION: R41.0: [...] CONTRAST Exam Date: 09/22/2024 3:26 PM Location: [facility] CT head without IV contrast INDICATION: R41.0: [...] 13 <=35 ng/L 09/22/2024 1:33 PM CDT [facility] Blood BLOOD SPECIMEN / Unknown Venipuncture / Unknown 09/22/2024 1:11 PM CDT 09/22/2024 1:11 PM CDT Anastasiia Urena DO LAB - CHEMISTRY ORDERABLES Mindy l Result [facility] [address] [place], [place] [id number] * XR CHEST 1VW PORTABLE (09/22/2024 12:19 [...] PCR RAPID (09/22/2024 11:20 AM CDT) Pathologist [facility] COVID-19 PCR Not detected Not detected 09/23/19 12:05 PM CDT [facility] Influenza A PCR Not detected Not detected 09/22/2024 12:05 PM CDT [facility] Influenza B PCR Not detected Not detected 09/22/2024 12:05 PM CDT [facility] LABORATORY RSV PCR Not detected Not detected 09/22/2024 12:05 PM CDT [facility]OR[facility] Microbiology SPECIMEN FROM NASOPHARYNGEAL STRUCTURE / Unknown Collection / Unknown 09/22/2024 11:20 AM CDT 09/22/2024 11:24 AM CDT Narrative [facility] LABORATORY - 09/22/2024 12:05 PM CDT This [...] MICROBIOLOGY ORDERABLES Final Result Performing Organization Address City/[facility]/ZIP Co de Phone Number [facility]OR[facility] [address] [place] [phone] * (ABNORMAL) SLIDE SCAN HEMATOLOGY (09/22/2024 11:20 AM CDT) Pathologist [facility] RBC Morphology REVIEWED 09/22/2024 11:55 AM CDT [facility] Ovalocytes MODERATE(A) (none) 09/22/2024 11:55 AM CDT [facility] Blood BLOOD SPECIMEN / Unknown Venipuncture / Unknown 09/22/2024 11:20 AM CDT 09/22/2024 11:24 AM CDT Sabrina TAYLOR LAB - HEMATOLOGY ORDERABLES F inal Result Performing Organization Address City/[facility]/ZIP Co de Phone Number [facility] [address] [place] [address] [phone] * (ABNORMAL) COMPREHENSIVE METABOLIC PANEL (09/22/2024 11:20 AM CDT) Only the most recent of3 resultswithin the time period is included. [facility] Glucose 120(H) 70 - 99 mg/dL 09/22/2024 11:50 AM [facility] Sodium 139 136 - 145 mmol/L 09/22/2024 11:50 AM [facility] Potassium 4.1 3.5 - 5.1 mmol/L 09/22/2024 11:50 AM [facility] Chloride 102 98 - 107 mmol/L 09/22/2024 11:50 AM [facility] CO2 25 22 - 29 mmol/L 09/22/2024 11:50 AM [facility] Calcium 8.7 8.4 - 10.4 mg/dL 09/22/2024 11:50 AM [facility] Anion Gap 12 6 - 16 mmol/L 09/22/2024 11:50 AM [facility] BUN 18 7 - 26 mg/dL 09/22/2024 11:50 AM [facility] Creatinine 3.70(H) 0.72 - 1.25 mg/dL 09/22/2024 11:50 AM [facility] Alkaline Phosphatase 168(H) 40 - 150 U/L 09/22/2024 11:50 AM [facility] ALT 14 0 - 55 U/L 09/22/2024 11:50 AM [facility] AST 36(H) 5 - 34 U/L 09/22/2024 11:50 AM [facility] Protein Total 7.0 6.4 - 8.3 gm/dL 09/22/2024 11:50 AM [facility] Albumin 3.1(L) 3.4 - 5.0 gm/dL 09/22/2024 11:50 AM [facility] Bilirubin Total 1.0 0.2 - 1.2 mg/dL 09/22/2024 11:50 AM [facility] eGFR by CKD-EPI 18(L) >=90 mL/min/1.7 3 m2 09/22/2024 11:50 AM [facility] Blood BLOOD SPECIMEN / Unknown Venipuncture / Unknown 09/22/2024 11:20 AM CDT 09/22/2024 11:24 AM T [facility] LABORATORY - 09/22/2024 11:50 AM CDT Specimen moderately hemolyzed, K, total protein and AST may be falsely elevated Sabrina TAYLOR LAB - CHEMISTRY ORDERABLES Fi nal Result Performing Organization Address [facility] de Phone Number [facility] [address] [place] [address] [phone] * ALCOHOL ETHYL BLOOD (09/22/2024 11:20 AM CDT) Ethanol <10.0 <10 mg/dL 09/22/2024 1:07 PM CDT [facility] Ethanol Calculated <0.010 <=0.100 gm/dL 09/22/2024 1:07 PM CDT [facility] Blood BLOOD SPECIMEN / Unknown Venipuncture / Unknown 09/22/2024 11:20 AM CDT 09/22/2024 11:24 AM CDT Narrative [facility] - 09/22/2024 1:07 PM CDT Ethanol [...] ORDERABLES Mindy l Result Performing Organization Address [facility] de Phone Number [facility] [address] [place] [phone] * EKG 12-LEAD (09/22/2024 11:08 AM CDT) Ventricular Rate 58 BPM [facility] MUSE Atrial Rate 58 BPM [facility] MUSE P-R Interval 260 ms [facility] MUSE QRS Duration ms 98 ms [facility]USE Q-T Interval ms 506 ms [facility] MUSE QTC Calculation (Bezet) 496 ms [facility] MUSE Calculated P [place] 75 degrees [facility] MUSE Calculated R [place] 20 degrees [facility] MUSE Calculated T [place] 56 degrees SM MUSE Interpretation EKG SINUS BRADYCARDIA WITH 1ST DEGREE A-V BLOCK PROLONGED QT ABNORMAL ECG WHEN COMPARED WITH ECG OF 11-JUN-2024 19:45, T WAVE INVERSION NO LONGER EVIDENT IN ANTERIOR LEADS Confirmed by DO QUEVEDO STEPHANIE ([id number]) on 09/24/2024 7:11:59 AM [facility] MUSE 09/22/2024 11:0 8 AM CDT 09/24/2024 7:11 AM CDT Sabrina TAYLOR ECG ORDERABLES Edited Result - Final [facility] MUSE * GLUCOSE - POINT OF CARE (08/05/2024 2:27 PM SENIOR SITE MANAGER) Pathologist [facility] Glucose WB/POC 99 70 - 99 mg/dL 08/05/2024 9:01 PM [facility] Specimen Type Venous 08/05/2024 9:01 PM [facility] Blood BLOOD SPECIMEN / Unknown 08/05/2024 2:27 PM SENIOR SITE MANAGER 08/05/2024 9:01 PM SENIOR SITE MANAGER Provider Unknown LAB - POINT OF CARE ORDERABLES Final Result [facility] [address] [place] [id number] [phone] * (ABNORMAL) PT-INR [facility] (07/24/2024 7:38 AM SENIOR SITE MANAGER) PT 17.6(H) 12.1 - 14.8 Seconds 07/24/2024 8:36 AM [facility] INR 1.5 See Comment 07/24/2024 8:36 AM [facility] Comment:The suggested therap eutic range for standard coumadin (warfarin) therapy is an INR of 2.0-3.0. For high-risk patients (Mechanical Mitral Valve Prosthesis, etc.), the suggested prophylactic therapeutic range is an INR of 2.5-3.5. Blood BLOOD SPECIMEN / Unknown Lab Venipuncture / Unknown 07/24/2024 7:38 AM SENIOR SITE MANAGER 07/24/2024 8:11 AM SENIOR SITE MANAGER Melecio Graves MD LAB - COAGULATION ORDERABLES F inal Result Performing Organization Address City/[facility]/ZIP Co de Phone Number [address] [address], [facility] [phone] * HEPATITIS C AB SCREEN RFLX NAAT QUANT (05/21/2024 2:29 AM SENIOR SITE MANAGER) Hepatitis C Antibody Non-react jaden Non-reac tive 05/22/2024 8:44 AM SENIOR SITE MANAGER [facility] Comment:Hepatitis C Antibody screen indicates [...] Lab Venipuncture / Unknown 05/21/2024 2:29 AM SENIOR SITE MANAGER 05/21/2024 3:08 AM SENIOR SITE MANAGER Result [facility] Uli Murphy MD LAB - CHEMISTRY ORDERABLES Fi nal Result Performing Organization Address [facility]/ZIP Co de Phone Number [address] [address], [facility] [phone] * HIV-1 HIV-2 ANTIBODY + HIV P24 AG PANEL (05/21/2024 2:29 AM SENIOR SITE MANAGER) HIV Antigen/Antibod y 1 & 2 Non-reacti ve Non-react jaden 05/22/2024 8:44 AM SENIOR SITE MANAGER [facility] Comment:No Laboratory eviden ce of HIV infection. Blood BLOOD SPECIMEN / Unknown Lab Venipuncture / Unknown 05/21/2024 2:29 AM SENIOR SITE MANAGER 05/21/2024 3:08 AM SENIOR SITE MANAGER Result [facility] Uli Murphy MD LAB - CHEMISTRY ORDERABLES Fi nal Result Performing Organization Address City/[facility]/ZIP Co de Phone Number [address] [address], [facility] [phone] * (ABNORMAL) LIPID PROFILE (12/25/2023 8:13 AM CDT) Cholesterol Total 104 <200 mg/dL 12/25/2023 9:18 AM T [facility] HDL 37(L) >40 mg/dL 12/25/2023 9:18 AM T [facility] Comment: ATP III Classification of HDL Cholesterol: <40 mg/dL: Considered a major risk factor. >60 mg/dL: Considered a negative risk factor. LDL Calculated 56 <100 mg/dL 12/25/2023 9:18 AM T [facility] Comment: ATP III Classification of LDL Cholesterol: <100 mg/dL: Optimal 100 - 129 mg/dL: Near Optimal/Above Optimal 130 - 159 mg/dL: Borderline High 160 - 189 mg/dL: High >190 mg/dL: Very High Triglycerides 57 <150 mg/dL 12/25/2023 9:18 AM [facility] Comment: ATP III Classification of Triglycerides: <150 mg/dL: Normal 150 - 199 mg/dL: Borderline High 200 - 400 mg/dL: High >500 mg/dL: Very High Blood BLOOD SPECIMEN / Unknown Lab Venipuncture / Unknown 12/25/2023 8:13 AM CDT 12/25/2023 8:37 AM CDT Eugenie Dsouza RN SOCIAL SERVICES-PNP LAB - CHEMISTRY ORD ERABLES Final Result Performing Organization Address [facility]/State/ZIP Co de Phone Number [facility] [address] [place] [address], [facility] [phone] from Last 3 Months or Most Recently Relevant to Health Maintenance Insurance MEDICARE ANTHEM MEDICARE Advance Directives Documents on File Type Date Recorded Patient Head Charrer Expl anation Adv Directive/Living Will/POA 06/05/2019 * [...] 2:16 PM 02/22/2022 12:05 PM Care Teams Theater Education Teacher Relationship Specialty Start Date End Date Efren Ramirez DO [address] [place] [address] PCP - General Internal Medicine 06/12/24
--- OUTSIDE RECORDS SUMMARY | 2024-10-13 17:47 | XMS_ITS | Referral Summary ---
Author Organization [facility] Address [address] [place] [address] Care Team Providers Care Independent Agent Music Education Name Role Phone Dm Pena MD Primary Care Provider + [phone] Sarah Jimenez RN Unavailable [phone] Hermelindo Avilez MD Unavailable [phone] Milla Calero RN Unavailable [phone] Melecio Graves MD Unavailable [phone] Nupur Shea RN Unavailable Unavailabl e Encounters Date Type Department Care Team Description 10/09/2024 Telephone [facility] Transplant Kidney [address] [facility] [address] Mail[address] [phone] [place] [address] Nupur Shea RN 10/09/2024 Telephone [facility] Transplant Kidney [address] [facility] [address] 9029-714 [place] [address] Nupur Shea RN 10/09/2024 Telephone [facility] Transplant Kidney [address] [facility] [address] [phone] [place] [address] Salena Mcdowell 10/08/2024 Telephone [facility] Transplant Liver [address] Mailstop [phone] [place] [address] Milla Calero, RN 10/06/2024 Telephone [facility] Transplant Liver [address] [facility] [address] Mailstop [phone] [place] [address] Mckenzie Ibarra 10/06/2024 Documentation [facility] Transplant Liver [address] [facility] [address] Mailstop [phone] [place] [address] Stacey, Mckenzie 10/06/2024 Documentation [facility] Transplant Liver [address] [facility] [address] Mailstop [phone] [place] [address] Mckenzie Ibarra 10/03/2024 Telephone [facility] Transplant Kidney [address] [facility] [address] [phone] [place] [address] YearNupur schroeder RN 10/01/2024 Documentation [facility] Transplant Kidney [address] [facility] [address] Mailstop [phone] [place] [address] Salena Mcdowell 10/01/2024 Telephone [facility] Transplant Kidney [address] [facility] [address] Mail[address] [phone] [place] [address] YearNupur schroeder RN 10/01/2024 Documentation [facility] Transplant Kidney [address] [facility] [address] Mailstop [phone] [place] [address] Salena Mcdowell 09/30/2024 Telephone [facility] Transplant Liver [address] [facility] [address] Mailstop [phone] [place] [address] Milla Calero, RN 09/30/2024 Telephone [facility] Transplant Liver [address] [facility] [address] Mailstop [phone] [place] [address] Milla Calero, RN 09/30/2024 Telephone [facility] Transplant Kidney [address] [facility] [address] Mail[address] [id number] [place] [address] YearNupur schroeder, RN 09/30/2024 Telephone [facility] Transplant Kidney [address] [facility] [address] Mailstop [phone] [place] [address] YearNupur schroeder, RN 09/30/2024 Telephone [facility] Transplant Kidney [address] [facility] [address] Mailstop [phone] [place] [address] Denisse Gates Referral - Kidney Txp 09/30/2024 Telephone [facility] Transplant Liver [address] [facility] [address] Mailstop [phone] [place] [address] Milla Calero, RN 09/30/2024 Telephone [facility] Transplant Liver [address] [facility] [address] Mailstop [phone] [place] [address] Milla Calero, RN 09/25/2024 Telephone [facility] Transplant Liver [address] [facility] [address] Mailstop [phone] [place] [address] Mckenzie Ibarra 09/22/2024 Telephone [facility] Transplant Liver [address] [facility] [address] Mailstop [phone] [place] [address] Suzi Duque 09/15/2024 Telephone [facility] Transplant Liver [address] [facility] [address] Mailstop [phone] [place] [address] Milla Calero, RN 09/11/2024 Telephone [facility] Transplant Liver [address] [facility] [address] Mailstop [phone] [place] [address] Suzi Duque 09/10/2024 Documentation [facility] Transplant Liver [address] [facility] [address] Mailstop [phone] [place] [address] Milla Calero RN 09/10/2024 Telephone [facility] Transplant Liver [address] [facility] [address] Mail[address] [phone] [place] [address] Suzi Duque from Last 3 Months Allergies [...] often do you attend chur ch or confucianism services? 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 Does NOT exclude the possibility of recent exposure to HCV. Blood specimen (specimen) 09/22/2020 12:51 PM CDT 09/22/2020 1:40 PM CDT Dean Echols MD LAB MICROBIOLOGY - GEN ERAL ORDERABLES Edited Result - Final [facility] Department [place] [address] from Last 3 Months or Most Recently Relevant to Health Maintenance Insurance [place] [employer] MEDICARE MEDICARE MEDICARE Care Teams Independent Agent Music Education Relationship Specialty Start Date End Date Dm Pena MD [address] [place] [address] PCP - General 03/05/19 Sarah Jimenez, RN [address] [address] It Help Desk Associate 09/23/20 Hermelindo Avilez MD [address] [address] Referring Physician Nephrology 09/23/20 Milla Calero, RN [address] [facility] [address] [place] [address] It Help Desk Associate 09/10/24 Melecio Graves MD [address] [place] [address] Referring Physician Internal Medicine 09/10/24 YearoutNupur, security inspectorIt Help Desk Associate 09/30/24
--- OUTSIDE RECORDS SUMMARY | 2024-10-13 17:47 | XMS_ITS | Encounter Summary ---
Author Organization [facility] Health Address [address] [facility] [address] Care Team Providers Care Carbon Cutter Name Role Phone Dm Pena MD Primary Care Provider Efren Ramirez DO Primary Care Provider Encounter Details Date Type Department Care Team (Late st Contact Info) Description 03/09/2020 Telephone [facility] [address] [place] [address] Kiko Pena MD [address] [address] Social History Tobacco Use Types Packs/Day Years [...] st Contact Info) Description 05/18/2025 11:00 AM HOME FIRE ALARM INSTALLER Office Visit [facility] - [place] [address] [facility], [place] [id number] Melecio Graves MD [address] [place] [address] [place] [address] documented as of this encounter Visit Diagnoses Not on filedocumented in this encounter Additional Health Concerns Infection Onset Date Last Indicated Resolved Time COVID-19 Under Investigation 09/20/2020 09/20/2020 09/20/2020 10:10 PM CDT COVID-19 Under Investigation 07/19/2021 07/19/2021 07/19/2021 1:09 PM HOME FIRE ALARM INSTALLER COVID-19 Confirmed 07/19/2021 07/19/2021 4:33 AM HOME FIRE ALARM INSTALLER COVID-19 Under Investigation 10/29/2023 10/29/2023 10/29/2023 9:28 AM CDT COVID-19 Under Investigation 09/22/2024 09/22/2024 09/22/2024 12:05 PM CDT documented as of this encounter Care Teams Carbon Cutter Relationship Specialty Start Date End Date Dm Pena MD [address] [address] PCP - General Family Medicine 02/06/19 06/11/24 Efren Ramirez DO [address] [place] [address] PCP - General Internal Medicine 06/12/24 documented as of this encounter
--- OUTSIDE RECORDS SUMMARY | 2024-10-13 17:47 | XMS_ITS | Encounter Summary ---
Author Organization [facility] Address [address] [facility] [place] [address] Care Team Providers Care Medical Csr Name Role Phone Efren Ramirez DO Primary Care Provider Encounter Details Date Type Department Care Team (Late st Contact Info) Description 10/03/2024 Orders Only [facility] TRANSPLANT [address] [place] [phone] Linh Forde, RN ESRD (end stage renal [...] Recorded Patient Health Questionnaire-2 Score 1 09/10/2024 [facility] Occupat ional [facility] - Occupational Stress [...] any time in the past [facility], were you homeless or living in [...] st Contact Info) Description 05/18/2025 11:00 AM CUSTOMS PATROL OFFICER Office Visit [facility] - [place] [address] [facility] [place] [address] Melecio Graves MD [address] [place] [address] [place] [address] documented as of this encounter Goals Goal [...] listed documented in this encounter Care Teams Medical Csr Relationship Specialty Start Date End Date Efren Ramirez DO [address] [place] [address] PCP - General Internal Medicine 06/12/24 documented as of this encounter
--- OUTSIDE RECORDS SUMMARY | 2024-10-13 17:47 | XMS_ITS | Encounter Summary ---
Author Organization [facility] Health Address [address] [facility] [place] [address] Care Team Providers Care Addictions Counselor Assistant Name Role Phone Dm Pena MD Primary Care Provider Efren Ramirez DO Primary Care Provider Encounter Details Date Type Department Care Team (Late st Contact Info) Description 07/15/2019 Pre-evaluation Visit [facility] PT [address] [place] [phone] Allie Noland, PT Social History Tobacco Use [...] st Contact Info) Description 05/18/2025 11:00 AM SALESFORCE SPECIALIST Office Visit [facility] [place] [address] [place] [address], [place] [phone] Melecio Graves MD [address] [place] [address] [place] [address] documented as of this encounter Visit Diagnoses Not on filedocumented in this encounter Additional Health Concerns Infection Onset Date Last Indicated Resolved Time COVID-19 Under Investigation 09/20/2020 09/20/2020 09/20/2020 10:10 PM CDT COVID-19 Under Investigation 07/19/2021 07/19/2021 07/19/2021 1:09 PM SALESFORCE SPECIALIST COVID-19 Confirmed 07/19/2021 07/19/2021 4:33 AM SALESFORCE SPECIALIST COVID-19 Under Investigation 10/29/2023 10/29/2023 10/29/2023 9:28 AM CDT COVID-19 Under Investigation 09/22/2024 09/22/2024 09/22/2024 12:05 PM CDT documented as of this encounter Care Teams Addictions Counselor Assistant Relationship Specialty Start Date End Date Dm Pena MD [address] [address] PCP - General Family Medicine 02/06/19 06/11/24 Efren Ramirez DO [address] [place] [address] PCP - General Internal Medicine 06/12/24 documented as of this encounter
--- OUTSIDE RECORDS SUMMARY | 2024-10-13 17:47 | XMS_ITS ---
Author Organization [facility] Address [address] [place] [address] Care Team Providers Care Welt Sewer Name Role Phone Dm Pena MD Primary Care Provider + [phone] Sarah Jimenez RN Unavailable [phone] Hermelindo Avilez MD Unavailable [phone] Milla Calero RN Unavailable [phone] Melecio Graves MD Unavailable [phone] Nupur Shea RN Unavailable Unavailabl e Transplant Episode Liver Candidate [facility] ([place], [place]) - [facility] Evaluation began on 09/30/2024 Marked as Active on 09/30/2024 Reason: Evaluation - Standard Liver CoordinatorMilla Calero RN Fax: N/A Email: N/A [place] Organ Diagnosis Organ Primary Contributory Liver Alcoholic Cirrhosis Care Team Name Role Phone Fax Email Milla Calero RN Liver Coordinator [phone] N/A N/A Melecio Graves MD Referring Physician [phone] N/A Milla Truong RN Secondary Coordinator N/A N/A N/A Mckenzie Ibarra Primary Brick Baker N/A N/A N/A Sena Luque Home Restoration Service Cleaner [phone] N/A N/A Events Pre-Transplant Referred: 09/10/2024 Evaluation began: 09/30/2024 Dialysis History Dialysis History Start End Type Comments Center 03/14/2019 In-center Hemodialysis MWF 5:30AM-9A M [facility] Dialysis Center Information Center Phone Fax Address [facility] [phone] [facility] [address]
--- OUTSIDE RECORDS SUMMARY | 2024-10-13 17:47 | XMS_ITS | Encounter Summary ---
Author Organization [facility] Address [address] [facility] [address] [place] [address] Care Team Providers Care Stereo Compiler Name Role Phone Dm Pena MD Primary Care Provider Efren Ramirez DO Primary Care Provider [phone] Encounter Details Date Type Department Care Team (Late st Contact Info) Description 01/26/2019 Procedure visit [facility] ANESTHESIA [address] [place] [address] Levi Candelario, DO [address] [facility] [address] [place] [address] Anesthesia Record Procedure Summary Procedure [...] st Contact Info) Description 05/18/2025 11:00 AM SURVEYOR HELPER Office [place] [facility] [place] [address] [place] [address], [facility] [place] [address] Melecio Graves MD [address] [place] [address] [place] [address] documented as of this encounter Visit Diagnoses Not on filedocumented in this encounter Additional Health Concerns Infection Onset Date Last Indicated Resolved Time COVID-19 Under Investigation 09/20/2020 09/20/2020 09/20/2020 10:10 PM CDT COVID-19 Under Investigation 07/19/2021 07/19/2021 07/19/2021 1:09 PM SURVEYOR HELPER COVID-19 Confirmed 07/19/2021 07/19/2021 4:33 AM SURVEYOR HELPER COVID-19 Under Investigation 10/29/2023 10/29/2023 10/29/2023 9:28 AM CDT COVID-19 Under Investigation 09/22/2024 09/22/2024 09/22/2024 12:05 PM CDT documented as of this encounter Care Teams Stereo Compiler Relationship Specialty Start Date End Date Dm Pena MD [address] [address] PCP - General Family Medicine 02/06/19 06/11/24 Efren Ramirez DO [address] [place] [address] PCP - General Internal Medicine 06/12/24 documented as of this encounter
--- OUTSIDE RECORDS SUMMARY | 2024-10-13 17:47 | XMS_ITS | Clinical Summary ---
Author Organization [facility] Address [facility] [place] [address] Care Team Providers Care Welt Slasher Name Role Phone Dm Pena MD Primary Care Provider [phone] Allergies No known active allergies Medications melatonin [...] levETIRAcetam (KEPPRA) 750 MG tabletIndicatio ns:Seizure disorder ([facility]),Closed head injury, sequela Take 1 tablet (750 mg total) by mouth 2 (two) times daily. 60 tablet 3 03/16/2023 Active B Czwhqoa-R-Teqjw Acid (TRIPHROCAPS) 1 MG Cap Take 1 capsule by mouth daily. Active Active Problems Problem Noted Date Diagnosed Date Acute upper respiratory infection 07/05/2023 Non-recurrent unilateral ing uinal hernia without obstruction or gangrene 04/02/2023 Seizure disorder ([facility] HHS/HCC) 08/29/2022 Closed head injury, sequela 08/29/2022 Dyspepsia 08/29/2022 Senile cataract of right eye , unspecified age-related cataract type 11/02/2021 Renal hypertension 09/15/2021 Insomnia, unspecified type 03/02/2021 Erectile dysfunction, unspecified erectile dysfu nction type 04/26/2020 Acute pain of right knee 05/03/2019 Chronic renal failure 03/05/2019 Cirrhosis of liver with ascites ([facility] ) 03/05/2019 Pancytopenia 03/05/2019 Anemia in end-stage renal disease ([facility]) 02/26/2019 Hyperphosphatemia 02/26/2019 Metabolic acidosis 02/26/2019 Hyponatremia 02/06/2019 Portal hypertension ([facility]) 02/06/2019 Dyspnea 01/24/2019 Decompensated hepatic cirrhosis ([facility] ) 01/22/2019 Alcoholism ([facility]) 02/19/2015 Ascites 10/09/2014 Type 2 diabetes mellitus wit h chronic kidney disease, without long-term current use of insulin ([facility]) 09/14/2014 Overview (04/21/2019): Description: 04/2012 Gout 04/06/2014 Elevated liver enzymes 09/10/2013 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 Nephrotic syndrome 08/14/2013 Nephrolithiasis 08/14/2013 Obstructive sleep apnea 08/14/2013 Proteinuria 08/14/2013 Essential hypertension 08/02/2013 Overview (04/21/2019): Description: prior to 03/2003 Resolved Problems Problem Noted Date Diagnosed Date Resolved Date Acute upper respiratory infection 03/02/2021 01/25/2023 Peritonitis ([facility]) 04/18/2019 03/28/2022 SHIRA (acute kidney injury) 01/24/2019 Type 2 diabetes mellitus ([facility]) 08/14/2013 01/25/2023 Routine general medical exam [...] 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 Not on file Not on file Last Filed Vital Signs Vital Sign Reading Time Taken Comments Blood Pressure 124/62 07/05/2023 1:07 PM TECHNOLOGY TRAINING ASSOCIATE Pulse 57 12/05/2021 6:35 PM CDT Temperature 36.8 C (98.3 F) 08/29/2022 2:49 PM TECHNOLOGY TRAINING ASSOCIATE Respiratory Rate 17 12/05/2021 6:35 PM CDT Oxygen Saturation 96% 12/05/2021 6:35 PM CDT Inhaled Oxygen Concentration - - Weight 81.2 kg (179 lb) 07/05/2023 1:07 PM TECHNOLOGY TRAINING ASSOCIATE Height 175.3 cm (5' 9 ) 01/25/2023 [...] 01/2023, 11/02/2021, Additional history exists PHQ-2 ([facility] [place]) 07/02/2024 Lipid Panel 12/24/2024 12/25/2023, 01/2023, 09/09/2013 [...] this topic Medical Devices Implanted Type Area Body Press Operator Device Identifier Shelf Expiration Date Model / [...] the left lateral decubitus position, the Olympus [id number] colonoscope was introduced into the rectum and [...] HGB A1C 4.8 4.2 - 6.5 % [facility] 11/02/2021 10:0 5 AM CDT Dm Pena MD LABORATORY Final Resul t [facility] [address] [address], * (ABNORMAL) LIPID PANEL (09/09/2013 9:23 AM [...] Health Maintenance Insurance MEDICARE MEDICARE Care Teams Welt Slasher Relationship Specialty Start Date End Date Dm Pena MD [address] [id number] PCP - General FAMILY PRACTICE 10/23/18
--- OUTSIDE RECORDS SUMMARY | 2024-10-13 17:47 | XMS_ITS ---
Author Organization [facility] Center Address [address] [place] [address] Care Team Providers Care Sanitation Technician Name Role Phone Dm Pena MD Primary Care Provider [phone] Sarah Jimenez RN Unavailable [phone] Hermelindo Avilez MD Unavailable [phone] Milla Calero RN Unavailable [phone] Melecio Graves MD Unavailable [phone] Nupur Shea RN Unavailable Unavailabl e Transplant Episode Kidney Candidate [facility] ([place], [place] Evaluation began on 09/30/2024 Marked as Active on 09/30/2024 Reason: Evaluation - Standard Kidney CoordinatorNupur Shea RN Phone: N/A Fax: N/A Email: N/A Scores Score Value Updated Exceptions/Reas ons CPRA Not available EPTS (Calc) 48 10/13/2024 [place] Organ Diagnosis Organ Primary Contributory Kidney Membranous Glomerulonephritis Care Team Name Role Phone Fax Email Nupur Shea RN Kidney Coordinator N/A N/A N/A Denisse Gates Primary Client Support Representative N/A N/A N/A Events Pre-Transplant Referred: 09/30/2024 Evaluation began: 09/30/2024 Dialysis History Dialysis History Start End Type [facility] 03/14/2019 In-center Hemodialysis MWF 5:30AM-9A M [facility] Dialysis Center Information Center Phone Fax Address [facility] [phone] [place] [address]
--- OUTSIDE RECORDS SUMMARY | 2024-10-13 17:47 | XMS_ITS | Encounter Summary ---
Author Organization [facility] Address [facility] [place] [address] Care Team Providers Care Steeple Jack Name Role Phone Lonnie Schaefer DO Primary Care Provider Dm Pena MD Primary Care Provider [phone] Encounter Details Date Type Department Care Team (Late st Contact Info) Description 09/15/2017 Abstract [facility] CONVERSION [address] [place] [address] , Generic Conversion, Social History Tobacco Use [...] on filedocumented in this encounter Care Teams Steeple Jack Relationship Specialty Start Date End Date Lonnie Schaefer DO [address] [place] [address] PCP - General 11/17/14 10/22/18 Dm Pena MD [address] [address] PCP - General FAMILY PRACTICE 10/23/18 documented as of this encounter
--- OUTSIDE RECORDS SUMMARY | 2024-10-13 17:47 | XMS_ITS | Clinical Summary ---
Author Organization [facility] Address [address] [place] [address] Phone Care Team Providers Care Data Entry Analyst Name Role Phone Unavailable Primary Care [...]
--- OUTSIDE RECORDS SUMMARY | 2024-10-13 17:47 | XMS_ITS | Encounter Summary ---
Author Organization [facility] Address [address] [place] [address] Care Team Providers Care Adult Secondary Education Instructor Name Role Phone Efren Ramirez DO Primary Care Provider Encounter Details Date Type Department Care Team (Late st Contact Info) Description 10/10/[address] [facility] TRANSPLANT [address] [place] [phone] Linh Forde, RN ESRD (end stage renal [...] Recorded Patient Health Questionnaire-2 Score 1 09/10/2024 [facility] - Occupational [...] place to sleep or slept in a alf (including now)? No 11/01/2023 Housing Stability Vital [...] in the past 12 m [facility], were you homeless or living in a alf (including now)? No 06/12/2024 Sex and Gender [...] st Contact Info) Description 05/18/2025 11:00 AM DESIGN PRINTING MACHINE SET UP OPERATOR Office Visit [facility] [place] [address] [facility], [facility] [place] [phone] Melecio Graves MD [address] [place] [address] [place] [address] documented as of this encounter Goals Goal [...] listed documented in this encounter Care Teams Adult Secondary Education Instructor Relationship Specialty Start Date End Date Efren Ramirez DO [address] [place] [address] PCP - General Internal Medicine 06/12/24 documented as of this encounter
--- OUTSIDE RECORDS SUMMARY | 2024-10-13 17:47 | XMS_ITS | Clinical Summary ---
Author Organization [facility] Address [address] [place] [address] Phone Care Team Providers Care Web Merchant Name Role Phone SchaeferLonnie avalos Primary Care Provider [phone] Allergies No known active allergies Medications amLODIPine [...] night if needed Active ergocalciferol (VITAMIN D-2) 34878 units capsule Take 50,000 Units by mouth [...] on file Legal Sex Male 7:57 AM [facility] Gender Identity Not on file Sexual [...] (Season Ended) 2025 04/27/20 17, 04/02/2015 Insurance [facility] [place] [address] Care Teams Web Merchant Relationship Specialty Start Date End Date Lonnie Schaefer DO [address] [facility] [address] [place] [address] PCP - General 02/21/19
--- OUTSIDE RECORDS SUMMARY | 2024-10-13 17:47 | XMS_ITS | Clinical Summary ---
Author Organization [facility] Address [address] [place] [address] Care Team Providers Care Counter Clerk [employer] Name Role Phone Dm Pena MD Primary Care Provider [phone] Sarah Jimenez RN Unavailable [phone] Hermelindo Avilez MD Unavailable [phone] Milla Calero RN Unavailable [phone] Melecio Graves MD Unavailable [phone] Nupur Shea RN Unavailable Unavailabl e Allergies [...] Type Department Care Team Description 10/09/2024 Telephone [facility] Transplant Kidney [address] [facility] [id number] [place] [address] Nupur Shea RN 10/09/2024 Telephone [facility] Transplant Kidney [address] [facility] [address] [id number] [place] [address] Nupur Shea RN 10/09/2024 Telephone [facility] Transplant Kidney [address] [facility] [address] [id number] [place] [address] Salena Mcdowell 10/08/2024 Telephone [facility] Transplant Liver [address] [facility] [address] [id number] [place] [address] Milla Calero RN 10/06/2024 Telephone [facility] Transplant Liver [address] [facility] [address] [id number] [place] [address] Mckenzie Ibarra 10/06/2024 Documentation [facility] Transplant Liver [address] [facility] [address] [phone] [place] [address] Mckenzie Ibarra 10/06/2024 Documentation [facility] Transplant Liver [address] [facility] [address] [phone] [place] [address] Mckenzie Ibarra 10/03/2024 Telephone [facility] Transplant Kidney [address] [facility] [id number] [place] [address] YearNupur schroeder, RN 10/01/2024 Documentation [facility] Transplant Kidney [address] [facility] [address] [phone] [place] [address] Ortbchandni, Salena 10/01/2024 Telephone [facility] Transplant Kidney [address] [facility] [address] Mail[address] [phone] [place] [address] YearoutNupur, RN 10/01/2024 Documentation [facility] Transplant Kidney [address] [facility] [address] [phone] [place] [address] Ortbchandni, Salena 09/30/2024 Telephone [facility] Transplant Liver [address] [facility] [address] [phone] [place] [address] Milla Calero, DIVINE 09/30/2024 Telephone [facility] Transplant Liver [address] [facility] [address] [id number] [place] [address] Milla Calero, RN 09/30/2024 Telephone [facility] Transplant Kidney [address] [facility] [address] [phone] [place] [address] YearoutNupur, RN 09/30/2024 Telephone [facility] Transplant Kidney [address] [facility] [address] Mail[address] [phone] [place] [address] YearNupur schroeder, RN 09/30/2024 Telephone [facility] Transplant Kidney [address] [facility] [address] [phone] [place] [address] Denisse Gates Referral - Kidney Txp 09/30/2024 Telephone [facility] Transplant Liver [address] [facility] [address] Mail[address] [phone] [place] [address] Milla Calero, RN 09/30/2024 Telephone [facility] Transplant Liver [address] [facility] [address] Mail[address] [phone] [place] [address] Milla Calero, RN 09/25/2024 Telephone [facility] Transplant Liver [address] [facility] [address] Mailstop -64-7 [place] [address] Mckenzie Ibarra 09/22/2024 Telephone [facility] Transplant Liver [address] [facility] [address] Mailstop -[address] [place] [address] Suzi Duque 09/15/2024 Telephone [facility] Transplant Liver [address] [facility] [address] Mailstop -[address] [place] [address] Milla Calero, RN 09/11/2024 Telephone [facility] Transplant Liver [address] [facility] [address] Mailstop -[address] [place] [address] Suzi Duque 09/10/2024 Documentation [facility] Transplant Liver [address] [facility] [address] Mailstop -[address] [place] [address] Milla Calero, RN 09/10/2024 Telephone [facility] Transplant Liver [address] [facility] [address] Mail[address] [phone] [place] [address] Suzi Duque from Last 3 Months Surgical [...] often do you attend chur ch or amish services? 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 Comment: Interpretive Data AGE SEX REFERENCE INTERVAL 0 minutes-150 years Female None 0 minutes-49 years Male None 50-59 years Male 0-3.90 60-69 years Male 0-5.40 70-79 years Male 0-6.20 80-150 years Male 0-6.20 Current interpretive data last revised 2018. Blood specimen (specimen) 09/22/2020 12:51 PM CDT 09/22/2020 1:40 PM CDT Dean Echols MD LAB BLOOD ORDERABLES F inal Result Performing Organization Address [facility]/ZIP Co de Phone Number [facility] [place] [address] * Hepatitis C antibody (09/22/2020 12:51 PM CDT) Pathologist [facility] Hep C Ab Nonreactive Nonreactive [facility] Comment:Antibodies to HCV no t detected. Does NOT exclude the possibility of recent exposure to HCV. Blood specimen (specimen) 09/22/2020 12:51 PM CDT 09/22/2020 1:40 PM CDT Dean Echols MD LAB MICROBIOLOGY - GEN ERAL ORDERABLES Edited Result - Final Performing Organization Address [facility]/ZIP Co de Phone Number [facility] Department [address] [place] [address] from Last 3 Months or Most Recently Relevant to Health Maintenance Insurance [place] MEDICARE MEDICARE MEDICARE Care Teams Counter Clerk [employer] Relationship Specialty Start Date End Date Dm Pena MD [address] [place] [address] PCP - General 03/05/19 Sarah Jimenez RN [address] [address] Shoulder Sawyer 09/23/20 Hermelindo Avilez MD [address] [address] Referring Physician Nephrology 09/23/20 Milla Calero RN [address] [address] Shoulder Sawyer 09/10/24 Melecio Graves MD [facility] [place] [address] Referring Physician Internal Medicine 09/10/24 Nupur Shea paper colorerShoulder Sawyer 09/30/24
--- OUTSIDE RECORDS SUMMARY | 2024-10-13 17:47 | XMS_ITS | Encounter Summary ---
Author Organization [facility] Address [address] [place] [address] Phone Care Team Providers Care Cardiovascular Surgeon Name Role Phone Lonnie Schaefer DO Primary Care Provider [phone] Encounter Details Date Type Department Care Team (Late st Contact Info) Description 04/20/2022 [facility] Nephrology and Hypertension [address] [facility], [address] [place] [address] Aleja Norris RN Social History Tobacco Use [...] on filedocumented in this encounter Care Teams Cardiovascular Surgeon Relationship Specialty Start Date End Date Lonnie Schaefer DO [address] [facility] [address] [place] [address] PCP - General 02/21/19 documented as of this encounter
--- NOTE | 2024-10-13 20:05 | PM.IMHP ---
H&P: HPI History of Present Illness Date/Time: 10/13/24 22:05 Chief Complaint: Slurred speech, confusion Narrative: This is a 58 year old male patient with a history of ESRD on Hemodialysis MWF, cirrhosis, pancytopenia and seizures who was evaluated in ER after a friend called EMS. Patient went to dialysis earlier today and after the session it appeared that he was wandering in the parking lot and had slurred speech. Patient states he actually just parked somewhere other than his usual space and originally went to usual space before remembering where he actually parked. Patient stated that he went home and a friend of his called EMS when it seemed he still had slurred speech. Patient reports that he feels well and was not sick prior to going to dialysis this morning. He states he is not sure that he ever needed to come to ER but was agreeable to admission for MRI to rule out Stroke. Labs in ER show chronic pancytopenia with WBC 1.8, Hgb 8.9, PLT 25. These values are consistent with prior baseline values on record. INR 1.5 and CMP generally unremarkable considering patient's ESRD status. Ammonia level was 49 and he received lactulose. CXR and CT of head unremarkable. On my assessment patient not having any slurred speech or focal neuro defects. He does use walker for ambulation since he had surgery on right knee for septic arthritis a few months ago. Review of Systems Review of Systems: All systems reviewed & are unremarkable except as noted in HPI and below PMFSH Past Medical History Medical History Esophageal varices in alcoholic cirrhosis Facial hematoma Pancytopenia Seizure Cirrhosis, alcoholic Acute respiratory failure Cirrhosis Renal osteodystrophy Erythropoietin deficiency anemia Thrombocytopenia Coagulopathy Encephalopathy, hepatic Alcoholic liver failure ESRD needing dialysis Surgical History Surgical History H/O cataract removal with insertion of prosthetic lens History of vasectomy Status post biopsy of kidney Family History Family History Father Colon cancer Dementia Mother Aneurysm Social History Social History Social History: Caffeine-tea Smoking status: Never smoker Alcohol intake: former Alcohol use details: none since04/11/21 Substance use: never Substance use type: does not use Do You Feel Safe in your Home?: Yes Lack of Transportation: No Lack of Food: Never True Current Housing: I Have Housing Concerned About Future Housing: No Difficulty Paying Gas/Electric Bills: No Difficulty Paying for Meds: No Currently Unemployed: No Education: Master's Degree or Higher Difficulty w/ Childcare or Family Care: No Spiritual care concerns: No Meds Home Medications and Allergies Home Medications ?Medication ?Instructions ?Recorded ?Confirmed ?Type furosemide 80 mg tablet 80 mg PO BID #180 tabs 03/01/24 10/13/24 Rx melatonin 3 mg tablet 3 mg PO HS Sleep 03/27/24 10/13/24 History pantoprazole 40 mg tablet,delayed See Rx Instructions .Route 04/28/24 10/13/24 Rx release .COMPLEX #90 tabs lactulose 20 gram/30 mL oral 20 g (30 mL) PO TID 08/21/24 10/13/24 Rx solution Constipation/liver issues 30 days #0 mL levetiracetam 750 mg tablet 750 mg PO Q12H 30 days #60 tabs 08/21/24 10/13/24 Rx nadolol 20 mg tablet See Rx Instructions .Route 09/02/24 10/13/24 Rx .COMPLEX #90 tabs hydralazine 25 mg tablet See Rx Instructions .Route 09/23/24 10/13/24 Rx .COMPLEX #270 tabs amlodipine 5 mg tablet 5 mg PO DAILY 10/13/24 10/13/24 History folic acid 1 mg tablet 1 mg PO DAILY 10/13/24 10/13/24 History sevelamer carbonate 800 mg tablet 800 mg PO DAILY 10/13/24 10/13/24 History Allergies Allergy/AdvReac Type Severity Reaction Status Date / Time No Known Allergies Allergy Unknown Verified 08/12/24 11:26 Vital Signs Vital Signs - 24 hr 10/13/24 15:06 10/13/24 16:10 10/13/24 16:11 Temperature 36.3 C L Pulse Rate 60 58 L Respiratory Rate 18 12 Blood Pressure 145/59 H 150/68 H Pulse Oximetry 99 98 98 Oxygen Delivery Room Air Room Air Exam Narrative: GENERAL: Well-appearing, well-nourished, and in no acute distress. HEAD: Normocephalic, atraumatic. ENT:? Mucous membranes moist. CHEST: Clear to auscultation.? No respiratory distress. HEART: Regular rate and rhythm. ? Normal peripheral pulses. Loud holosystolic murmur noted (chronic) ABDOMEN: Soft, nontender, nondistended. EXTREMITIES: Normal range of motion. No peripheral edema. SKIN: Warm dry normal color NEURO: Alert and oriented x3. PSYCH: Normal mood and affect H&P: Results Labs Labs: Short CBC 10/13/24 Range/Units 16:43 WBC 1.8 L* (4.5-10.0) K/mm3 Hgb 8.9 L (14.0-18.0) g/dL Hct 27.6 L (42.0-52.0) % Plt Count 25 L (150-375) k/mm3 BMP 10/13/24 16:43 Sodium 136 L Potassium 4.0 Chloride 99 Carbon Dioxide 28 BUN 34 H Creatinine 4.35 H Glucose 91 Calcium 9.3 Cardiac Enzymes 10/13/24 Range/Units 16:43 Troponin I 0.016 (0.000-0.034) ng/mL Liver Function 10/13/24 Range/Units 16:43 Total Bilirubin 1.2 (0.2-1.3) mg/dL AST 25 (17-59) U/L ALT 16 (6-50) U/L Alkaline Phosphatase 169 H (38-126) U/L Albumin 3.7 (3.5-5.1) g/dL Pulse Oximetry SpO2 results: 98-99% on room air Attestation: I personally reviewed and interpreted this pulse oximetry as follows: Interpretation: No need for supplemental oxygenation at this time ECG Attestation: I personally reviewed and interpreted this ECG as follows: ECG completion date: 10/13/24 ECG completion time: 17:32 Prior ECG tracings: available for review Interpretation: Sinus bradycardia first-degree AV block rate of 58 WV interval 214 QRS duration 94 QTC 478 QRS axis 36 no STEMI or acute ischemic changes Imaging Chest x-ray: Radiologist's impression: XR chest 1V Ordering provider: Luis Bocanegra MD History: 58 years Male with . Confused . Comparison: August 12, 2024 FINDINGS: MEDIASTINUM: The cardiac silhouette is not enlarged. LUNGS: No infiltrates, effusions or pneumothorax. Prominent bronchovascular markings in the lower lobes areas. OTHER: No free air under the diaphragm. IMPRESSION: No acute cardiopulmonary pathology. Reviewed, dictated and finalized at location A. CT scan - head: Radiologist's impression: CT brain wo con Ordering provider: Luis Bocanegra MD History: 58 years Male with . Confusion . Comparison: None. Technique: CT of the head without contrast. Radiation reduction technique utilized. The dose-length product was 681 mGy-cm. FINDINGS: BRAIN PARENCHYMA AND CSF SPACES: No midline shift, mass effect or hemorrhage. The brain parenchyma and CSF spaces are otherwise normal. VISUALIZED PARANASAL SINUSES: Bilateral maxillary sinus disease. Well aerated. MASTOIDS: Well aerated. BONES: Normal. Posterior arch of C1. The bones appear intact. SOFT TISSUES: Visualized nasopharynx is normal. Superficial soft tissues are normal. IMPRESSION: No acute intracranial findings. Reviewed, dictated and finalized at location A. Assessment and Plan Assessment and plan (1) Slurring of speech: Code(s): R47.81 - Slurred speech Status: Acute Assessment and Plan: Differential diagnosis: TIA, CVA, encephalopathy, transient hypotension status post hemodialysis Confusion and reported slurred speech resolved in the ER, NIH stroke scale 0, patient received aspirin and admitted for MRI to rule out stroke Ammonia level moderate and 49. Patient received lactulose and no current symptoms present. -MRI brain and brainstem ordered without contrast only due to ESRD status -lipid panel ordered -daily aspirin -patient already had echocardiogram in 2020 with a negative bubble study at that time, do not believe this needs repeated. -Dr. Ro consulted by ER and stated admission here with MRI ok, no need to transfer since no Neurology coverage next 2 days. (2) ESRD needing dialysis: Code(s): N18.6 - End stage renal disease; Z99.2 - Dependence on renal dialysis Status: Chronic Assessment and Plan: -MWF dialysis schedule -Symptoms started after completion of dialysis Sunday10/13/24 -Labs stable -Repeat basic labs in AM -Nephrology consulted in case still a patient on Sunday and in need of dialysis while admitted, otherwise expect to resume outpatient dialysis as scheduled MWF. (3) Cirrhosis: Code(s): K74.60 - Unspecified cirrhosis of liver Status: Acute Assessment and Plan: -Stable labs -Ammonia was 49, lactulose given -May have been cause of slurred speech and transient confusion -Patient appears to be at baseline -Pancytopenia history also stable (4) Cardiac murmur: Code(s): R01.1 - Cardiac murmur, unspecified Status: Acute Assessment and Plan: -Loud holosystolic murmur present (chronic for 20 years per patient) -Does not appear to be in heart failure and echocardiogram from 2020 with negative bubble study and mild grade 1 diastolic dysfunction at that time -Only repeat Echo if condition changes (5) Pancytopenia: Code(s): D61.818 - Other pancytopenia Status: Acute Assessment and Plan: -Chronic, stable per labs -AM labs ordered -No anticoagulation for DVT prophylaxis due to platelet count 25 -consider stopping aspirin or prescribing less often than daily if MRI is negative for Stroke??? Quality If No VTE Prophylaxis Answer both mechanical and pharmacologic: Reason no mechanical VTE proph: low risk/not indicated Reason no pharmacologic proph: medical contraindication thrombocytopenia Stroke Date of last known normal: 10/13/24 Time of last known normal: 09:00 Stroke Scale Stroke scale date:: 10/13/24 Stroke scale time:: 22:15 1a Level of conciousness: alert-0 1b Level of consciousness: answers both correctly-0 1c Level of consciousness: obeys both correctly-0 2 Best gaze: normal-0 3 Visual: no visual loss-0 4 Facial palsy: normal-0 5a Motor: left arm: no drift-0 5b Motor: right arm: no drift-0 6a Motor: left leg: no drift-0 6b Motor: right leg: no drift-0 7 Limb ataxia: absent-0 8 Sensory: normal-0 9 Best language: no aphasia-0 10 Dysarthria: normal-0 11 Extinction and inattention: no abnormality-0 Level:: 0 Observation status Hospitalist MIPS Advance Care Plan I have confirmed that the patient's Advanced Care Plan is present, code status is documented, or surrogate decision maker is listed in patient medical record.: Yes Medication Reconciliation I have utilized all available resources to obtain, update and review the patients current medications (includes all prescriptions, OTC, herbals, cannabis, and nutritional supplements).: Yes
[2024-10-13 21:15] VITALS: BP 143/62; PULSE 62; RESP 16; TEMP 36.4; O2SAT 99
[2024-10-13 21:44] VITALS: BMI 24.4
--- NOTE | 2024-10-13 21:53 | ADMGEN ---
This patient, Jj Cuello, was admitted to [facility] Room 315-01. Patient/family oriented to hospital policies and general routines including ID bracelet, bed and alarms, visiting hours, pain management, procedures, bathroom and other care routines, personal items, smoking policy, room service/diet, and visiting hours. Information on how to activate the Rapid Response Team has been discussed. Patient/Family are encouraged to report perceived risks to care and to ask questions if they do not understand what they are told or what they should do.
[2024-10-13 23:50] LABS: Cholesterol 93 mg/dL (0-200); HDL Direct 38 mg/dL; Triglycerides 95 mg/dL (<150)
[2024-10-14] VITALS (10 sets, daily range): BP systolic 123–138; BP diastolic 58–65; PULSE 57–63; RESP 16–20; TEMP 36.2–37.2; O2SAT 97–99
[2024-10-14 00:05] LABS: LDL Cholesterol Direct < 30 mg/dL
[2024-10-14] MEDS: levETIRAcetam 250 MG TABLET 750 MG PO ×3 (01:12→20:31)
[2024-10-14 06:14] LABS: Basophils Percent Auto 1.1 % (0.2-1.2); Eosinophils Absolute Auto 0.1 K/mm3 (0-0.3); Eosinophils Percent Auto 4.9 % (0-4.4); Hemoglobin 8.8 g/dL (14.0-18.0); Immature Platelet Fraction Pct 6.5 % (0.9-11.2); Lymphocytes Absolute Auto 0.62 K/mm3 (0.9-3.2); Lymphocytes Percent Auto 34.1 % (18.3-44.2); Mean Corpuscular HGB Conc 32.6 g/dl (32-36); Mean Corpuscular Hemoglobin 32.5 pg (26-34); Mean Corpuscular Volume 99.6 fl (80-100); Mean Platelet Volume 11.5 fl (7.4-10.4); Monocytes Absolute Auto 0.2 K/mm3 (0.1-0.6); Monocytes Percent Auto 8.2 % (2.6-8.5); Neutrophils Absolute Auto 0.9 K/mm3 (1.3-6.7); Neutrophils Percent Auto 51.7 % (45.5-73.1); Red Blood Count 2.71 M/mm3 (4.6-6.20); Red Cell Distribution Width 13.9 % (11.5-14.5)
[2024-10-14 06:26] LABS: Alanine Aminotransferase 14 U/L (6-50); Albumin Level 3.3 g/dL (3.5-5.1); Alkaline Phosphatase 131 U/L (38-126); Anion Gap 11 mmol/L (4-12); Aspartate Amino Transferase 24 U/L (17-59); Bilirubin,Total 1.2 mg/dL (0.2-1.3); Blood Urea Nitrogen 43 mg/dL (9-20); Calcium 9.1 mg/dL (8.4-10.2); Carbon Dioxide 27 mmol/L (22-30); Chloride 97 mmol/L (98-107); Estimated CRCL calculation 14 ml/min; Estimated Glomerular Filt Rate 11; Glucose 94 mg/dL (65-110); Potassium 4.4 mmol/L (3.4-5.0); Sodium 135 mmol/L (137-145)
[2024-10-14 06:47] LABS: Platelet Count Result 24 k/mm3 (150-375); White Blood Count 1.8 K/mm3 (4.5-10.0)
[2024-10-14] MEDS: hydrALAZINE HCL 25 MG TABLET PO ×3 (08:40→20:31)
[2024-10-14] MEDS: LACTULOSE 20 GM/30 ML UDC PO ×3 (08:40→20:30)
[2024-10-14] MEDS: nadoloL 20 MG TABLET PO (08:40)
[2024-10-14] MEDS: PANTOPRAZOLE 40 MG TABLET PO (08:41)
[2024-10-14] MEDS: FUROSEMIDE 80 MG TABLET PO ×2 (08:41→16:56)
[2024-10-14] MEDS: SEVELAMER CARBONATE 800 MG TABLET 1600 MG PO ×2 (08:41→16:56)
[2024-10-14] MEDS: FOLIC ACID 1 MG TABLET PO (08:41)
[2024-10-14] MEDS: ASPIRIN 81 MG CHEWABLE TABLET PO (08:42)
[2024-10-14] MEDS: amLODIPine BESYLATE 5 MG TABLET PO (08:42)
[2024-10-14 09:10] LABS: Iron 165 ug/dL (49-181)
[2024-10-14 09:19] LABS: Percent Iron Saturation 69 % (20-50)
--- NOTE | 2024-10-14 10:10 | P.CONNP_ITS ---
Assessment and Plan Assessment and plan (1) End stage renal disease: Code(s): N18.6 - End stage renal disease Status: Chronic Assessment and Plan: * plan HD tomorrow (if remains hospitalized) * continue outpatient schedule of Sun/Sun/Fridays while hospitalized * follow electrolytes, volume status, and clearance (2) Slurring of speech: Code(s): R47.81 - Slurred speech Status: Acute Assessment and Plan: * as noted by history in association with mild confusion * resolved while in the ER * ammonia mildly elevated * imaging to date noted * noted plans for MRI of brain (3) Seizure disorder: Code(s): G40.909 - Epilepsy, unspecified, not intractable, without status epilepticus Status: Acute Assessment and Plan: * known history of post dialysis seizures * Neurology recommendations noted on last hospitalization * was on Keppra -- discontinued?? (not on home med list on admission) (4) Anemia: Code(s): D64.9 - Anemia, unspecified Status: Chronic Assessment and Plan: * due to ESRD with contributions from liver disease * Epogen with HD * follow trend of H/H (5) Cirrhosis: Code(s): K74.60 - Unspecified cirrhosis of liver Status: Acute Assessment and Plan: * known history * has been sober for the last 3 - 4 years * continue lactulose (6) Pancytopenia: Code(s): D61.818 - Other pancytopenia Status: Acute Assessment and Plan: * somewhat of a chronic issue * presumed to be secondary to liver disease * anemia further complicated by ESRD I will continue to follow the patient with you while he remains hospitalized and make further recommendations as deemed necessary. Thank you for allowing me to participate in the care of this patient. L History of Present Illness Reason for Consult Consult date: 10/14/24 Reason for consult: end stage renal disease Chief Complaint Chief complaint: Slurry speech History of Present Illness Narrative: The patient is a 58-year-old male with a past medical history as outlined below who presented to [facility] for acute confusion and slurred speech. Renal consultation was requested due to his end-stage renal disease. The patient dialyzes on a Sunday, Sunday, Sunday dialysis schedule at [facility] under the care of Dr. Bashir Norris. From a dialysis perspective, he has been doing reasonably well with relative stability in his monthly labs and volume status. According to nursing staff at this dialysis center, his last dialysis treatment was uneventful although the did report he was moving/ambulating a bit slow when leaving the facility to get to his car but he was otherwise in no distress and without any neurological issues. Currently, at the time my evaluation, the patient appears to be doing reasonably well and is in no acute distress with stable mentation. Review of Systems 2 Review of Systems: As per HPI. [facility] Past Medical History Medical History (Updated 10/14/24 @ 11:53 by Chitra Dill MD) Esophageal varices in alcoholic cirrhosis Facial hematoma Pancytopenia Seizure Cirrhosis, alcoholic Acute respiratory failure Cirrhosis Renal osteodystrophy Erythropoietin deficiency anemia Thrombocytopenia Coagulopathy Encephalopathy, hepatic Alcoholic liver failure ESRD needing dialysis Surgical History Surgical History H/O cataract removal with insertion of prosthetic lens History of vasectomy Status post biopsy of kidney Family History Family History Father Colon cancer Dementia Mother Aneurysm Social History Social History Social History: Caffeine-tea Smoking status: Never smoker Alcohol intake: former Alcohol use details: none since04/11/21 Substance use: never Substance use type: does not use Do You Feel Safe in your Home?: Yes Lack of Transportation: No Lack of Food: Never True Current Housing: I Have Housing Concerned About Future Housing: No Difficulty Paying Gas/Electric Bills: No Difficulty Paying for Meds: No Currently Unemployed: No Education: Master's Degree or Higher Difficulty w/ Childcare or Family Care: No Spiritual care concerns: No Meds Home Medications and Allergies Home Medications ?Medication ?Instructions ?Recorded ?Confirmed ?Type furosemide 80 mg tablet 80 mg PO BID #180 tabs 03/01/24 10/13/24 Rx melatonin 3 mg tablet 3 mg PO HS Sleep 03/27/24 10/13/24 History pantoprazole 40 mg tablet,delayed See Rx Instructions .Route 04/28/24 10/13/24 Rx release .COMPLEX #90 tabs lactulose 20 gram/30 mL oral 20 g (30 mL) PO TID 08/21/24 10/13/24 Rx solution Constipation/liver issues 30 days #0 mL levetiracetam 750 mg tablet 750 mg PO Q12H 30 days #60 tabs 08/21/24 10/13/24 Rx nadolol 20 mg tablet See Rx Instructions .Route 09/02/24 10/13/24 Rx .COMPLEX #90 tabs hydralazine 25 mg tablet See Rx Instructions .Route 09/23/24 10/13/24 Rx .COMPLEX #270 tabs amlodipine 5 mg tablet 5 mg PO DAILY 10/13/24 10/13/24 History folic acid 1 mg tablet 1 mg PO DAILY 10/13/24 10/13/24 History sevelamer carbonate 800 mg tablet 800 mg PO DAILY 10/13/24 10/13/24 History Allergies Allergy/AdvReac Type Severity Reaction Status Date / Time No Known Allergies Allergy Unknown Verified 08/12/24 11:26 Vital Signs Vital Signs Temp Pulse Resp BP Pulse Ox O2 Del Method 10/14/24 08:40 60 10/14/24 05:05 97.1 F L 58 L 20 138/64 99 10/14/24 04:00 58 L 10/13/24 21:15 97.6 F 62 16 143/62 H 99 10/13/24 16:11 58 L 12 150/68 H 98 10/13/24 16:10 98 Room Air 10/13/24 15:06 97.3 F L 60 18 145/59 H 99 Room Air Exam 2 Narrative: GENERAL APPEARANCE: well developed well nourished male in no acute distress HEENT: normocephalic, atraumatic, normal conjunctiva and sclera, nares patient NECK: no lymphadenopathy, thyromegaly, or JVD MOUTH: normal lips, teeth, and gums CARDIOVASCULAR: RRR, normal S1 and S2, no rub RESPIRATORY: clear to auscultation anteriorly ABDOMEN: soft, nontender, nondistended, positive bowel sounds present EXTREMITIES: no evidence of cyanosis, clubbing, or edema NEUROLOGICAL: alert and oriented x 3; CN II - XII intact bilaterally; no focal deficits noted Results Lab Results 10/14/24 05:46 10/14/24 05:46 Lab results: Most recent lab results Calcium 9.1 mg/dL (8.4-10.2) 10/14/24 05:46 Magnesium 2.0 mg/dL (1.6-2.3) 10/14/24 05:46
[2024-10-14 10:15] LABS: Ammonia 77 umol/L (9-30)
[2024-10-14] MEDS: MELATONIN 3 MG TABLET PO (20:31)
[2024-10-14 23:49] LABS: Lactic Acid Reflex 1.2 mmol/L (0.7-2.0)
[2024-10-15] VITALS (29 sets, daily range): BP systolic 124–146; BP diastolic 48–78; PULSE 56–64; RESP 13–16; TEMP 36.3–37; O2SAT 96–99
[2024-10-15 05:51] LABS: Basophils Percent Auto 0.7 % (0.2-1.2); Eosinophils Absolute Auto 0.1 K/mm3 (0-0.3); Eosinophils Percent Auto 5.2 % (0-4.4); Hematocrit 27.8 % (42.0-52.0); Hemoglobin 8.9 g/dL (14.0-18.0); Immature Platelet Fraction Pct 4.5 % (0.9-11.2); Lymphocytes Absolute Auto 0.52 K/mm3 (0.9-3.2); Mean Corpuscular Hemoglobin 32.1 pg (26-34); Mean Corpuscular Volume 100.4 fl (80-100); Mean Platelet Volume 10.9 fl (7.4-10.4); Monocytes Absolute Auto 0.2 K/mm3 (0.1-0.6); Monocytes Percent Auto 11.8 % (2.6-8.5); Neutrophils Absolute Auto 0.7 K/mm3 (1.3-6.7); Neutrophils Percent Auto 48.3 % (45.5-73.1); Red Blood Count 2.77 M/mm3 (4.6-6.20); Red Cell Distribution Width 13.7 % (11.5-14.5)
[2024-10-15 06:03] LABS: Alanine Aminotransferase 15 U/L (6-50); Albumin Level 3.2 g/dL (3.5-5.1); Alkaline Phosphatase 139 U/L (38-126); Anion Gap 10 mmol/L (4-12); Aspartate Amino Transferase 24 U/L (17-59); Bilirubin,Total 1.2 mg/dL (0.2-1.3); Blood Urea Nitrogen 60 mg/dL (9-20); Calcium 8.8 mg/dL (8.4-10.2); Carbon Dioxide 27 mmol/L (22-30); Chloride 97 mmol/L (98-107); Estimated CRCL calculation 10 ml/min; Estimated Glomerular Filt Rate 8; Glucose 112 mg/dL (65-110); Magnesium 2.3 mg/dL (1.6-2.3); Potassium 4.5 mmol/L (3.4-5.0); Sodium 134 mmol/L (137-145)
[2024-10-15] MEDS: LACTULOSE 20 GM/30 ML UDC PO ×2 (06:03→14:37)
[2024-10-15] MEDS: hydrALAZINE HCL 25 MG TABLET PO ×3 (06:04→20:55)
[2024-10-15 06:37] LABS: Platelet Count Result 23 k/mm3 (150-375); White Blood Count 1.5 K/mm3 (4.5-10.0)
[2024-10-15 07:25] LABS: Hepatitis B Surface Antigen Negative (Negative)
[2024-10-15 08:13] LABS: Hepatitis B Surface Anti Res Positive
[2024-10-15] MEDS: SEVELAMER CARBONATE 800 MG TABLET 1600 MG PO ×3 (08:39→17:10)
[2024-10-15 09:05] LABS: Ammonia 97 umol/L (9-30)
--- NOTE | 2024-10-15 09:10 | PC.NURSE ---
To Dialysis per hospital bed.
[2024-10-15 10:28] LABS: CRP < 0.5 mg/dL (<1.0)
[2024-10-15] MEDS: levETIRAcetam 250 MG TABLET 750 MG PO ×2 (12:05→20:54)
[2024-10-15] MEDS: EPOETIN ALFA-EPBX 10,000 UNITS/ML VIAL 10000 UNITS IV PUSH (12:24)
--- NOTE | 2024-10-15 14:25 | PC.NURSE ---
Returned to room per hospital bed from Dialysis.
[2024-10-15] MEDS: FOLIC ACID 1 MG TABLET PO (14:32)
[2024-10-15] MEDS: nadoloL 20 MG TABLET PO (14:32)
[2024-10-15] MEDS: amLODIPine BESYLATE 5 MG TABLET PO (14:33)
[2024-10-15] MEDS: PANTOPRAZOLE 40 MG TABLET PO (14:33)
[2024-10-15] MEDS: FUROSEMIDE 80 MG TABLET PO ×2 (14:33→17:10)
--- NOTE | 2024-10-15 15:23 | P.PNIM_ITS ---
Progress Note: A&P Assessment and Plan (1) Slurring of speech: Code(s): R47.81 - Slurred speech Status: Acute Assessment and Plan: Differential diagnosis: TIA, CVA, encephalopathy, transient hypotension status post hemodialysis Confusion and reported slurred speech resolved in the ER, NIH stroke scale 0, patient received aspirin and admitted for MRI to rule out stroke Ammonia level moderate and 49. Patient received lactulose and no current symptoms present. -MRI brain and brainstem ordered without contrast only due to ESRD status -lipid panel ordered -daily aspirin -patient already had echocardiogram in 2020 with a negative bubble study at that time, do not believe this needs repeated. -Dr. Ro consulted by ER and stated admission here with MRI ok, no need to transfer since no Neurology coverage next 2 days. (2) ESRD needing dialysis: Code(s): N18.6 - End stage renal disease; Z99.2 - Dependence on renal dialysis Status: Chronic Assessment and Plan: -MWF dialysis schedule -Symptoms started after completion of dialysis Sunday10/13/24 -Labs stable -Repeat basic labs in AM -Nephrology consulted in case still a patient on Sunday and in need of dialysis while admitted, otherwise expect to resume outpatient dialysis as scheduled MWF. (3) Cirrhosis: Code(s): K74.60 - Unspecified cirrhosis of liver Status: Acute Assessment and Plan: -Stable labs -Ammonia was 49, lactulose given -May have been cause of slurred speech and transient confusion -Patient appears to be at baseline -Pancytopenia history also stable (4) Cardiac murmur: Code(s): R01.1 - Cardiac murmur, unspecified Status: Acute Assessment and Plan: -Loud holosystolic murmur present (chronic for 20 years per patient) -Does not appear to be in heart failure and echocardiogram from 2020 with negative bubble study and mild grade 1 diastolic dysfunction at that time -Only repeat Echo if condition changes (5) Pancytopenia: Code(s): D61.818 - Other pancytopenia Status: Acute Assessment and Plan: -Chronic, stable per labs -AM labs ordered -No anticoagulation for DVT prophylaxis due to platelet count 25 -consider stopping aspirin or prescribing less often than daily if MRI is negative for Stroke??? Plan This is a 58 year old male patient with a history of ESRD on Hemodialysis MWF, cirrhosis, pancytopenia and seizures who was evaluated in ER after a friend c dread EMS. Patient went to dialysis earlier today and after the session it appeared that he was wandering in the parking lot and had slurred speech. Patient states he actually just parked somewhere other than his usual space and originally went to usual space before remembering where he actually parked. Patient stated that he went home and a friend of his called EMS when it seemed he still had slurred speech. Patient reports that he feels well and was not sick prior to going to dialysis this morning. He states he is not sure that he ever needed to come to ER but was agreeable to admission for MRI to rule out Stroke. Labs in ER show chronic pancytopenia with WBC 1.8, Hgb 8.9, PLT 25. These values are consistent with prior baseline values on record. INR 1.5 and CMP generally unremarkable considering patient's ESRD status. Ammonia level was 49 and he received lactulose. CXR and CT of head unremarkable. On my assessment patient not having any slurred speech or focal neuro defects. He does use walker for ambulation since he had surgery on right knee for septic arthritis a few months ago. patient seem to be his baseline and does not appear to be confused and he answers question appropriately, CT scan of head was negative and to further evaluate patient will have MRI of the brain, patient with history of liver failure due to previous history of alcohol abuse,resulting in pancytopenia for which is patient is seen by medicaid nurse and he is also on liver transplant and kidney transplant list, upon arrival patient ammonia levels were 49 and today the ammonia levels are 77 patient is taking lactulose 20mg TID, will CPM and monitor, patient with ESRD-HD seen by Dr. Elliott. will follow up on brain MRI and further recommendation to follow. Subjective Date/time seen: 10/14/24 15:23 Interval history: Chief Complaint: Slurred speech, confusion H&P-Narrative: This is a 58 year old male patient with a history of ESRD on Hemodialysis MWF, cirrhosis, pancytopenia and seizures who was evaluated in ER after a friend called EMS. Patient went to dialysis earlier today and after the session it appeared that he was wandering in the parking lot and had slurred speech. Patient states he actually just parked somewhere other than his usual space and originally went to usual space before remembering where he actually parked. Patient stated that he went home and a friend of his called EMS when it seemed he still had slurred speech. Patient reports that he feels well and was not sick prior to going to dialysis this morning. He states he is not sure that he ever needed to come to ER but was agreeable to admission for MRI to rule out Stroke. Labs in ER show chronic pancytopenia with WBC 1.8, Hgb 8.9, PLT 25. These values are consistent with prior baseline values on record. INR 1.5 and CMP generally unremarkable considering patient's ESRD status. Ammonia level was 49 and he received lactulose. CXR and CT of head unremarkable. On my assessment patient not having any slurred speech or focal neuro defects. He does use walker for ambulation since he had surgery on right knee for septic arthritis a few months ago. patient seem to be his baseline and does not appear to be confused and he ans wers question appropriately, CT scan of head was negative and to further evaluate patient will have MRI of the brain, patient with history of liver failure due to previous history of alcohol abuse,resulting in pancytopenia for which is patient is seen by medicaid nurse and he is also on liver transplant and kidney transplant list, upon arrival patient ammonia levels were 49 and today the ammonia levels are 77 patient is taking lactulose 20mg TID, will CPM and monitor, patient with ESRD-HD seen by Dr. Elliott. will follow up on brain MRI and further recommendation to follow. Review of Systems Review of Systems: All systems reviewed & are unremarkable except as noted in HPI and below Exam Narrative: Patient is comfortable, NAD HEENT: eyes are clear and none icteric LUNGS:CTA HEART: RR S1S2 ABD: BS+, Soft and nontender Lower extremities: no edema SKIN: nonjaundiced Neuro: grossly intact. Objective Data Vital Signs Vital Signs: Vital Signs - 24 hr 10/14/24 16:00 10/14/24 20:00 10/14/24 20:12 Temperature 37.2 C Pulse Rate 59 L 59 L 62 Respiratory Rate 16 Blood Pressure 129/65 Pulse Oximetry 98 Oxygen Delivery 10/15/24 00:00 10/15/24 04:00 10/15/24 05:09 Temperature 36.4 C L Pulse Rate 57 L 57 L 63 Respiratory Rate 16 Blood Pressure 133/67 Pulse Oximetry 99 Oxygen Delivery 10/15/24 07:40 10/15/24 08:00 10/15/24 08:00 Temperature 36.5 C Pulse Rate 57 L 59 L Respiratory Rate 14 Blood Pressure 130/62 Pulse Oximetry 99 Oxygen Delivery Room Air 10/15/24 09:25 10/15/24 09:35 10/15/24 09:45 Temperature 36.9 C Pulse Rate 59 L 59 L 63 Respiratory Rate 16 Blood Pressure 141/69 H 146/78 H 140/76 Pulse Oximetry 99 Oxygen Delivery 10/15/24 10:00 10/15/24 10:15 10/15/24 10:30 Temperature Pulse Rate 57 L 59 L 57 L Respiratory Rate Blood Pressure 140/74 130/70 138/68 Pulse Oximetry Oxygen Delivery 10/15/24 10:45 10/15/24 11:00 10/15/24 11:15 Temperature Pulse Rate 57 L 57 L 57 L Respiratory Rate Blood Pressure 129/65 139/67 139/64 Pulse Oximetry Oxygen Delivery 10/15/24 11:30 10/15/24 11:45 10/15/24 12:00 Temperature Pulse Rate 58 L 59 L 60 Respiratory Rate Blood Pressure 135/68 125/64 131/65 Pulse Oximetry Oxygen Delivery 10/15/24 12:00 10/15/24 12:15 10/15/24 12:30 Temperature Pulse Rate 64 61 58 L Respiratory Rate Blood Pressure 138/68 129/66 Pulse Oximetry Oxygen Delivery 10/15/24 12:45 10/15/24 13:00 10/15/24 13:11 Temperature Pulse Rate 60 61 59 L Respiratory Rate Blood Pressure 133/60 126/65 124/61 Pulse Oximetry Oxygen Delivery 10/15/24 13:15 10/15/24 14:00 10/15/24 14:32 Temperature 36.3 C L Pulse Rate 60 60 64 Respiratory Rate 16 16 Blood Pressure 132/67 124/61 Pulse Oximetry 98 96 Oxygen Delivery Intake/Output Intake/Output: Intake & Output 10/12/24 10/13/24 10/14/24 10/15/24 23:59 23:59 23:59 23:59 Intake Total 1580 240 Output Total 0 3000 Balance 1580 -2760 Meds/Results Medications: Active Medications Generic Name Dose Route Start Last Admin Trade Name Freq PRN Reason Stop Dose Admin Amlodipine Besylate 5 mg 10/14/24 09:00 10/15/24 14:33 Amlodipine Besylate 5 Mg Tablet PO 5 mg DAILY DARWIN Administration Aspirin 81 mg 10/14/24 08:00 10/15/24 11:49 Aspirin 81 Mg Chewable Tablet PO Not Given DAILY@0800 DARWIN Epoetin Nasir-epbx 10,000 units 10/15/24 18:25 10/15/24 12:24 Epoetin Nasir-Epbx 10,000 Units/Ml Vial IV PUSH 10/15/24 18:26 10,000 units ONCE ONE Administration Folic Acid 1 mg 10/14/24 09:00 10/15/24 14:32 Folic Acid 1 Mg Tablet PO 1 mg DAILY DARWIN Administration Furosemide 80 mg 10/14/24 09:00 10/15/24 14:33 Furosemide 80 Mg Tablet PO 80 mg BID DARWIN Administration Hydralazine HCl 25 mg 10/14/24 22:00 10/15/24 14:38 Hydralazine Hcl 25 Mg Tablet PO 25 mg Q8HR DARWIN Administration Albumin Human 50 mls @ 999 mls/hr 10/15/24 06:25 Albutein IVPB 11/14/24 06:24 Q10M PRN HYPOTENSION Lactulose 20 gm 10/14/24 22:00 10/15/24 14:37 Lactulose 20 Gm/30 Ml Udc PO 20 gm Q8HR DARWIN Administration Levetiracetam 750 mg 10/13/24 22:35 10/15/24 12:05 Levetiracetam 250 Mg Tablet PO 750 mg Q12HR DARWIN Administration Melatonin 3 mg 10/13/24 22:35 10/14/24 20:31 Melatonin 3 Mg Tablet PO 3 mg HS DARWIN Administration Nadolol 20 mg 10/14/24 09:00 10/15/24 14:32 Nadolol 20 Mg Tablet PO 20 mg QAM DARWIN Administration Pantoprazole Sodium 40 mg 10/14/24 09:00 10/15/24 14:33 Pantoprazole 40 Mg Tablet PO 40 mg QAM DARWIN Administration Sevelamer Carbonate 800 mg 10/13/24 22:39 Sevelamer Carbonate 800 Mg Tablet PO BID PRN WITH SNACKS Sevelamer Carbonate 1,600 mg 10/14/24 08:00 10/15/24 14:37 Sevelamer Carbonate 800 Mg Tablet PO 1,600 mg TIDWM ADRWIN Administration Radiology Results: ITS Impressions Head CT 10/13/24 17:06 IMPRESSION: No acute intracranial findings. Chest X-Ray 10/13/24 17:16 IMPRESSION: No acute cardiopulmonary pathology. Labs Labs: Laboratory Results - last 24 hr 10/14/24 10/15/24 10/15/24 23:34 05:40 08:37 WBC 1.5 L* RBC 2.77 L Hgb 8.9 L Hct 27.8 L MCV 100.4 H MCH 32.1 MCHC 32.0 RDW 13.7 Plt Count 23 L* MPV 10.9 H Immature Gran % (Auto) 0.0 Neut % (Auto) 48.3 Lymph % (Auto) 34.0 Major % (Auto) 11.8 H Eos % (Auto) 5.2 H Baso % (Auto) 0.7 Lymph # (Auto) 0.52 L Major # (Auto) 0.2 Eos # (Auto) 0.1 Baso # (Auto) 0.0 Abs Immat Gran (auto) 0.00 Absolute Neuts (auto) 0.7 L Absolute Nucleated RBC 0.000 Nucleated RBC % 0.0 % Immature Plt Fraction 4.5 Sodium 134 L Potassium 4.5 Chloride 97 L Carbon Dioxide 27 Anion Gap 10 BUN 60 H D Creatinine 7.34 H Estim Creat Clear Calc 10 Estimated GFR 8 L Glucose 112 H Lactic Acid 1.2 Calcium 8.8 Magnesium 2.3 Total Bilirubin 1.2 AST 24 ALT 15 Alkaline Phosphatase 139 H Ammonia C-Reactive Protein < 0.5 Total Protein 6.0 L Albumin 3.2 L Hep Bs Antigen Negative Hep Bs Antibody Positive 10/15/24 08:41 WBC RBC Hgb Hct MCV MCH MCHC RDW Plt Count MPV Immature Gran % (Auto) Neut % (Auto) Lymph % (Auto) Major % (Auto) Eos % (Auto) Baso % (Auto) Lymph # (Auto) Major # (Auto) Eos # (Auto) Baso # (Auto) Abs Immat Gran (auto) Absolute Neuts (auto) Absolute Nucleated RBC Nucleated RBC % % Immature Plt Fraction Sodium Potassium Chloride Carbon Dioxide Anion Gap BUN Creatinine Estim Creat Clear Calc Estimated GFR Glucose Lactic Acid Calcium Magnesium Total Bilirubin AST ALT Alkaline Phosphatase Ammonia 97 H C-Reactive Protein Total Protein Albumin Hep Bs Antigen Hep Bs Antibody
--- NOTE | 2024-10-15 15:36 | P.PNNP_ITS ---
Progress Note: A&P Assessment and Plan (1) End stage renal disease: Code(s): N18.6 - End stage renal disease Status: Chronic Assessment and Plan: * HD today * continue outpatient schedule of Sun/Sun/Fridays while hospitalized * follow electrolytes, volume status, and clearance (2) Slurring of speech: Code(s): R47.81 - Slurred speech Status: Acute Assessment and Plan: * as noted by history in association with mild confusion * resolved while in the ER * ammonia mildly elevated * imaging to date noted * noted plans for MRI of brain (3) Seizure disorder: Code(s): G40.909 - Epilepsy, unspecified, not intractable, without status epilepticus Status: Acute Assessment and Plan: * known history of post dialysis seizures * Neurology recommendations noted on last hospitalization * was on Keppra -- discontinued?? (not on home med list on admission) (4) Anemia: Code(s): D64.9 - Anemia, unspecified Status: Chronic Assessment and Plan: * due to ESRD with contributions from liver disease * Epogen with HD * follow trend of H/H (5) Cirrhosis: Code(s): K74.60 - Unspecified cirrhosis of liver Status: Acute Assessment and Plan: * known history * has been sober for the last 3 - 4 years * continue lactulose (6) Pancytopenia: Code(s): D61.818 - Other pancytopenia Status: Acute Assessment and Plan: * somewhat of a chronic issue * presumed to be secondary to liver disease * anemia further complicated by ESRD Will continue to follow. L Subjective Date/time seen: 10/15/24 12:40 Interval history: Follow-up for end stage renal disease on hemodialysis. Tolerating dialysis treatment at the time of my visit (seen on HD at 12:30PM); feels reasonably well when seen; no apparent distress noted no acute complaints voiced -- no further slurred speech or acute confusion; no issues/events overnight or earlier this morning. Exam 2 Narrative: General: WD/WN male in NAD Heart: normal S1 and S2; no rub Lungs: clear anteriorly Abdomen: soft, nontender, nondistended, positive bowel sounds Extremities: no cyanosis or clubbing; no edema Skin: warm and dry Objective Data Vital Signs Vital Signs: Vital Signs Temp Pulse Resp BP Pulse Ox O2 Del Method 10/15/24 14:32 64 10/15/24 14:00 60 16 124/61 96 10/15/24 13:15 97.3 F L 60 16 132/67 98 10/15/24 13:11 59 L 124/61 10/15/24 13:00 61 126/65 10/15/24 12:45 60 133/60 10/15/24 12:30 58 L 129/66 10/15/24 12:15 61 138/68 10/15/24 12:00 64 10/15/24 12:00 60 131/65 10/15/24 11:45 59 L 125/64 10/15/24 11:30 58 L 135/68 10/15/24 11:15 57 L 139/64 10/15/24 11:00 57 L 139/67 10/15/24 10:45 57 L 129/65 10/15/24 10:30 57 L 138/68 10/15/24 10:15 59 L 130/70 10/15/24 10:00 57 L 140/74 10/15/24 09:45 63 140/76 10/15/24 09:35 59 L 146/78 H 10/15/24 09:25 98.4 F 59 L 16 141/69 H 99 10/15/24 08:00 59 L 10/15/24 08:00 Room Air 10/15/24 07:40 97.7 F 57 L 14 130/62 99 10/15/24 05:09 97.5 F L 63 16 133/67 99 10/15/24 04:00 57 L 10/15/24 00:00 57 L 10/14/24 20:12 98.9 F 62 16 129/65 98 10/14/24 20:00 59 L 10/14/24 16:00 59 L Intake/Output Intake/Output: Intake & Output 10/12/24 10/13/24 10/14/24 10/15/24 23:59 23:59 23:59 23:59 Intake Total 1580 240 Output Total 0 3000 Balance 1580 -2760 Meds/Results Medications: Active Medications Generic Name Dose Route Start Last Admin Trade Name Freq PRN Reason Stop Dose Admin Amlodipine Besylate 5 mg 10/14/24 09:00 10/15/24 14:33 Amlodipine Besylate 5 Mg Tablet PO 5 mg DAILY DARWIN Administration Aspirin 81 mg 10/14/24 08:00 10/15/24 11:49 Aspirin 81 Mg Chewable Tablet PO Not Given DAILY@0800 DARWIN Epoetin Nasir-epbx 10,000 units 10/15/24 18:25 10/15/24 12:24 Epoetin Nasir-Epbx 10,000 Units/Ml Vial IV PUSH 10/15/24 18:26 10,000 units ONCE ONE Administration Folic Acid 1 mg 10/14/24 09:00 10/15/24 14:32 Folic Acid 1 Mg Tablet PO 1 mg DAILY DARWIN Administration Furosemide 80 mg 10/14/24 09:00 10/15/24 14:33 Furosemide 80 Mg Tablet PO 80 mg BID DARWIN Administration Hydralazine HCl 25 mg 10/14/24 22:00 10/15/24 14:38 Hydralazine Hcl 25 Mg Tablet PO 25 mg Q8HR DARWIN Administration Albumin Human 50 mls @ 999 mls/hr 10/15/24 06:25 Albutein IVPB 11/14/24 06:24 Q10M PRN HYPOTENSION Lactulose 20 gm 10/14/24 22:00 10/15/24 14:37 Lactulose 20 Gm/30 Ml Udc PO 20 gm Q8HR DARWIN Administration Levetiracetam 750 mg 10/13/24 22:35 10/15/24 12:05 Levetiracetam 250 Mg Tablet PO 750 mg Q12HR DARWIN Administration Melatonin 3 mg 10/13/24 22:35 10/14/24 20:31 Melatonin 3 Mg Tablet PO 3 mg HS DARWIN Administration Nadolol 20 mg 10/14/24 09:00 10/15/24 14:32 Nadolol 20 Mg Tablet PO 20 mg QAM DARWIN Administration Pantoprazole Sodium 40 mg 10/14/24 09:00 10/15/24 14:33 Pantoprazole 40 Mg Tablet PO 40 mg QAM DARWIN Administration Sevelamer Carbonate 800 mg 10/13/24 22:39 Sevelamer Carbonate 800 Mg Tablet PO BID PRN WITH SNACKS Sevelamer Carbonate 1,600 mg 10/14/24 08:00 10/15/24 14:37 Sevelamer Carbonate 800 Mg Tablet PO 1,600 mg TIDWM DARWIN Administration Radiology Results: ITS Impressions Head CT 10/13/24 17:06 IMPRESSION: No acute intracranial findings. Chest X-Ray 10/13/24 17:16 IMPRESSION: No acute cardiopulmonary pathology. Labs Labs: Laboratory Tests 10/15/24 05:40 10/15/24 05:40 Calcium 8.8 Magnesium 2.3 Total Bilirubin 1.2 AST 24 ALT 15 Alkaline Phosphatase 139 H Total Protein 6.0 L Albumin 3.2 L
--- NOTE | 2024-10-15 15:51 | P.PNIM_ITS ---
Progress Note: A&P Assessment and Plan (1) Slurring of speech: Code(s): R47.81 - Slurred speech Status: Acute Assessment and Plan: Differential diagnosis: TIA, CVA, encephalopathy, transient hypotension status post hemodialysis Confusion and reported slurred speech resolved in the ER, NIH stroke scale 0, patient received aspirin and admitted for MRI to rule out stroke Ammonia level moderate and 49. Patient received lactulose and no current symptoms present. -MRI brain and brainstem ordered without contrast only due to ESRD status -lipid panel ordered -daily aspirin -patient already had echocardiogram in 2020 with a negative bubble study at that time, do not believe this needs repeated. -Dr. Ro consulted by ER and stated admission here with MRI ok, no need to transfer since no Neurology coverage next 2 days. (2) ESRD needing dialysis: Code(s): N18.6 - End stage renal disease; Z99.2 - Dependence on renal dialysis Status: Chronic Assessment and Plan: -MWF dialysis schedule -Symptoms started after completion of dialysis Sunday10/13/24 -Labs stable -Repeat basic labs in AM -Nephrology consulted in case still a patient on Sunday and in need of dialysis while admitted, otherwise expect to resume outpatient dialysis as scheduled MWF. (3) Cirrhosis: Code(s): K74.60 - Unspecified cirrhosis of liver Status: Acute Assessment and Plan: -Stable labs -Ammonia was 49, lactulose given -May have been cause of slurred speech and transient confusion -Patient appears to be at baseline -Pancytopenia history also stable (4) Cardiac murmur: Code(s): R01.1 - Cardiac murmur, unspecified Status: Acute Assessment and Plan: -Loud holosystolic murmur present (chronic for 20 years per patient) -Does not appear to be in heart failure and echocardiogram from 2020 with negative bubble study and mild grade 1 diastolic dysfunction at that time -Only repeat Echo if condition changes (5) Pancytopenia: Code(s): D61.818 - Other pancytopenia Status: Acute Assessment and Plan: -Chronic, stable per labs -AM labs ordered -No anticoagulation for DVT prophylaxis due to platelet count 25 -consider stopping aspirin or prescribing less often than daily if MRI is negative for Stroke??? Plan This is a 58 year old male patient with a history of ESRD on Hemodialysis MWF, cirrhosis, pancytopenia and seizures who was evaluated in ER after a friend c dread EMS. Patient went to dialysis earlier today and after the session it appeared that he was wandering in the parking lot and had slurred speech. Patient states he actually just parked somewhere other than his usual space and originally went to usual space before remembering where he actually parked. Patient stated that he went home and a friend of his called EMS when it seemed he still had slurred speech. Patient reports that he feels well and was not sick prior to going to dialysis this morning. He states he is not sure that he ever needed to come to ER but was agreeable to admission for MRI to rule out Stroke. Labs in ER show chronic pancytopenia with WBC 1.8, Hgb 8.9, PLT 25. These values are consistent with prior baseline values on record. INR 1.5 and CMP generally unremarkable considering patient's ESRD status. Ammonia level was 49 and he received lactulose. CXR and CT of head unremarkable. On my assessment patient not having any slurred speech or focal neuro defects. He does use walker for ambulation since he had surgery on right knee for septic arthritis a few months ago. patient seem to be his baseline and does not appear to be confused and he answers question appropriately, CT scan of head was negative and to further evaluate patient will have MRI of the brain, patient with history of liver failure due to previous history of alcohol abuse,resulting in pancytopenia for which is patient is seen by sports medicine trainer and he is also on liver transplant and kidney transplant list, upon arrival patient ammonia levels were 49 and today the ammonia levels are 77 patient is taking lactulose 20mg TID, will CPM and monitor, patient with ESRD-HD seen by Dr. Elliott. will follow up on brain MRI and further recommendation to follow. Subjective Date/time seen: 10/15/24 15:51 Interval history: Chief Complaint: Slurred speech, confusion H&P-Narrative: This is a 58 year old male patient with a history of ESRD on Hemodialysis MWF, cirrhosis, pancytopenia and seizures who was evaluated in ER after a friend called EMS. Patient went to dialysis earlier today and after the session it appeared that he was wandering in the parking lot and had slurred speech. Patient states he actually just parked somewhere other than his usual space and originally went to usual space before remembering where he actually parked. Patient stated that he went home and a friend of his called EMS when it seemed he still had slurred speech. Patient reports that he feels well and was not sick prior to going to dialysis this morning. He states he is not sure that he ever needed to come to ER but was agreeable to admission for MRI to rule out Stroke. Labs in ER show chronic pancytopenia with WBC 1.8, Hgb 8.9, PLT 25. These values are consistent with prior baseline values on record. INR 1.5 and CMP generally unremarkable considering patient's ESRD status. Ammonia level was 49 and he received lactulose. CXR and CT of head unremarkable. On my assessment patient not having any slurred speech or focal neuro defects. He does use walker for ambulation since he had surgery on right knee for septic arthritis a few months ago. today patient is seen in the dialysis, patient seem to be his baseline and does not appear to be confused and as he answers question appropriately, CT scan of head was negative and to further evaluate patient will have MRI of the brain which is still pending, patient with history of liver failure due to previous alcohol abuse in the past, resulting in pancytopenia for which is patient is seen by sports medicine trainer and he is also on liver transplant and kidney transplant list, upon arrival patient ammonia levels were 49, on 10/14 77 and today the levels are 97, patient is taking lactulose 20mg TID, will increase it to 40mg will CPM and monitor, patient with ESRD-HD seen by Dr. Elliott. will follow up on brain MRI and further recommendation to follow. Review of Systems Review of Systems: All systems reviewed & are unremarkable except as noted in HPI and below Exam Narrative: Patient is comfortable, NAD HEENT: eyes are clear and none icteric LUNGS:CTA HEART: RR S1S2 ABD: BS+, Soft and nontender Lower extremities: no edema SKIN: nonjaundiced Neuro: grossly intact. Objective Data Vital Signs Vital Signs: Vital Signs - 24 hr 10/14/24 16:00 10/14/24 20:00 10/14/24 20:12 Temperature 37.2 C Pulse Rate 59 L 59 L 62 Respiratory Rate 16 Blood Pressure 129/65 Pulse Oximetry 98 Oxygen Delivery 10/15/24 00:00 10/15/24 04:00 10/15/24 05:09 Temperature 36.4 C L Pulse Rate 57 L 57 L 63 Respiratory Rate 16 Blood Pressure 133/67 Pulse Oximetry 99 Oxygen Delivery 10/15/24 07:40 10/15/24 08:00 10/15/24 08:00 Temperature 36.5 C Pulse Rate 57 L 59 L Respiratory Rate 14 Blood Pressure 130/62 Pulse Oximetry 99 Oxygen Delivery Room Air 10/15/24 09:25 10/15/24 09:35 10/15/24 09:45 Temperature 36.9 C Pulse Rate 59 L 59 L 63 Respiratory Rate 16 Blood Pressure 141/69 H 146/78 H 140/76 Pulse Oximetry 99 Oxygen Delivery 10/15/24 10:00 10/15/24 10:15 10/15/24 10:30 Temperature Pulse Rate 57 L 59 L 57 L Respiratory Rate Blood Pressure 140/74 130/70 138/68 Pulse Oximetry Oxygen Delivery 10/15/24 10:45 10/15/24 11:00 10/15/24 11:15 Temperature Pulse Rate 57 L 57 L 57 L Respiratory Rate Blood Pressure 129/65 139/67 139/64 Pulse Oximetry Oxygen Delivery 10/15/24 11:30 10/15/24 11:45 10/15/24 12:00 Temperature Pulse Rate 58 L 59 L 60 Respiratory Rate Blood Pressure 135/68 125/64 131/65 Pulse Oximetry Oxygen Delivery 10/15/24 12:00 10/15/24 12:15 10/15/24 12:30 Temperature Pulse Rate 64 61 58 L Respiratory Rate Blood Pressure 138/68 129/66 Pulse Oximetry Oxygen Delivery 10/15/24 12:45 10/15/24 13:00 10/15/24 13:11 Temperature Pulse Rate 60 61 59 L Respiratory Rate Blood Pressure 133/60 126/65 124/61 Pulse Oximetry Oxygen Delivery 10/15/24 13:15 10/15/24 14:00 10/15/24 14:32 Temperature 36.3 C L Pulse Rate 60 60 64 Respiratory Rate 16 16 Blood Pressure 132/67 124/61 Pulse Oximetry 98 96 Oxygen Delivery Intake/Output Intake/Output: Intake & Output 10/12/24 10/13/24 10/14/24 10/15/24 23:59 23:59 23:59 23:59 Intake Total 1580 240 Output Total 0 3000 Balance 1580 -2760 Meds/Results Medications: Active Medications Generic Name Dose Route Start Last Admin Trade Name Freq PRN Reason Stop Dose Admin Amlodipine Besylate 5 mg 10/14/24 09:00 10/15/24 14:33 Amlodipine Besylate 5 Mg Tablet PO 5 mg DAILY DARWIN Administration Aspirin 81 mg 10/14/24 08:00 10/15/24 11:49 Aspirin 81 Mg Chewable Tablet PO Not Given DAILY@0800 DARWIN Epoetin Nasir-epbx 10,000 units 10/15/24 18:25 10/15/24 12:24 Epoetin Nasir-Epbx 10,000 Units/Ml Vial IV PUSH 10/15/24 18:26 10,000 units ONCE ONE Administration Folic Acid 1 mg 10/14/24 09:00 10/15/24 14:32 Folic Acid 1 Mg Tablet PO 1 mg DAILY DARWIN Administration Furosemide 80 mg 10/14/24 09:00 10/15/24 14:33 Furosemide 80 Mg Tablet PO 80 mg BID DARWIN Administration Hydralazine HCl 25 mg 10/14/24 22:00 10/15/24 14:38 Hydralazine Hcl 25 Mg Tablet PO 25 mg Q8HR DARWIN Administration Albumin Human 50 mls @ 999 mls/hr 10/15/24 06:25 Albutein IVPB 11/14/24 06:24 Q10M PRN HYPOTENSION Lactulose 20 gm 10/14/24 22:00 10/15/24 14:37 Lactulose 20 Gm/30 Ml Udc PO 20 gm Q8HR DARWIN Administration Levetiracetam 750 mg 10/13/24 22:35 10/15/24 12:05 Levetiracetam 250 Mg Tablet PO 750 mg Q12HR DARWIN Administration Melatonin 3 mg 10/13/24 22:35 10/14/24 20:31 Melatonin 3 Mg Tablet PO 3 mg HS DARWIN Administration Nadolol 20 mg 10/14/24 09:00 10/15/24 14:32 Nadolol 20 Mg Tablet PO 20 mg QAM DARWIN Administration Pantoprazole Sodium 40 mg 10/14/24 09:00 10/15/24 14:33 Pantoprazole 40 Mg Tablet PO 40 mg QAM DARWIN Administration Sevelamer Carbonate 800 mg 10/13/24 22:39 Sevelamer Carbonate 800 Mg Tablet PO BID PRN WITH SNACKS Sevelamer Carbonate 1,600 mg 10/14/24 08:00 10/15/24 14:37 Sevelamer Carbonate 800 Mg Tablet PO 1,600 mg TIDWM DARWIN Administration Radiology Results: ITS Impressions Head CT 10/13/24 17:06 IMPRESSION: No acute intracranial findings. Chest X-Ray 10/13/24 17:16 IMPRESSION: No acute cardiopulmonary pathology. Labs Labs: Laboratory Results - last 24 hr 10/14/24 10/15/24 10/15/24 23:34 05:40 08:37 WBC 1.5 L* RBC 2.77 L Hgb 8.9 L Hct 27.8 L MCV 100.4 H MCH 32.1 MCHC 32.0 RDW 13.7 Plt Count 23 L* MPV 10.9 H Immature Gran % (Auto) 0.0 Neut % (Auto) 48.3 Lymph % (Auto) 34.0 [place] % (Auto) 11.8 H Eos % (Auto) 5.2 H Baso % (Auto) 0.7 Lymph # (Auto) 0.52 L [place] # (Auto) 0.2 Eos # (Auto) 0.1 Baso # (Auto) 0.0 Abs Immat Gran (auto) 0.00 Absolute Neuts (auto) 0.7 L Absolute Nucleated RBC 0.000 Nucleated RBC % 0.0 % Immature Plt Fraction 4.5 Sodium 134 L Potassium 4.5 Chloride 97 L Carbon Dioxide 27 Anion Gap 10 BUN 60 H D Creatinine 7.34 H Estim Creat Clear Calc 10 Estimated GFR 8 L Glucose 112 H Lactic Acid 1.2 Calcium 8.8 Magnesium 2.3 Total Bilirubin 1.2 AST 24 ALT 15 Alkaline Phosphatase 139 H Ammonia C-Reactive Protein < 0.5 Total Protein 6.0 L Albumin 3.2 L Hep Bs Antigen Negative Hep Bs Antibody Positive 10/15/24 08:41 WBC RBC Hgb Hct MCV MCH MCHC RDW Plt Count MPV Immature Gran % (Auto) Neut % (Auto) Lymph % (Auto) [place] % (Auto) Eos % (Auto) Baso % (Auto) Lymph # (Auto) [place] # (Auto) Eos # (Auto) Baso # (Auto) Abs Immat Gran (auto) Absolute Neuts (auto) Absolute Nucleated RBC Nucleated RBC % % Immature Plt Fraction Sodium Potassium Chloride Carbon Dioxide Anion Gap BUN Creatinine Estim Creat Clear Calc Estimated GFR Glucose Lactic Acid Calcium Magnesium Total Bilirubin AST ALT Alkaline Phosphatase Ammonia 97 H C-Reactive Protein Total Protein Albumin Hep Bs Antigen Hep Bs Antibody
[2024-10-15 16:01] LABS: MRSA (PCR) NOT DETECTED (NOT DETECTE)
[2024-10-15] MEDS: LACTULOSE 20 GM/30 ML UDC 40 GM PO (17:09)
[2024-10-15] MEDS: MELATONIN 3 MG TABLET PO (20:55)
[2024-10-16] VITALS: PULSE 69
[2024-10-16 04:00] VITALS: PULSE 63
[2024-10-16 05:54] LABS: Basophils Percent Auto 0.6 % (0.2-1.2); Eosinophils Absolute Auto 0.1 K/mm3 (0-0.3); Eosinophils Percent Auto 4.4 % (0-4.4); Hematocrit 29.9 % (42.0-52.0); Hemoglobin 9.3 g/dL (14.0-18.0); Immature Granulocyte Absolute 0.01 K/mm3 (0.00-0.031); Immature Granulocyte Percent A 0.6 % (0-0.5); Immature Platelet Fraction Pct 5.1 % (0.9-11.2); Lymphocytes Percent Auto 31.4 % (18.3-44.2); Mean Corpuscular HGB Conc 31.1 g/dl (32-36); Mean Corpuscular Hemoglobin 31.7 pg (26-34); Mean Platelet Volume 11.1 fl (7.4-10.4); Monocytes Absolute Auto 0.2 K/mm3 (0.1-0.6); Monocytes Percent Auto 11.3 % (2.6-8.5); Neutrophils Absolute Auto 0.8 K/mm3 (1.3-6.7); Neutrophils Percent Auto 51.7 % (45.5-73.1); Platelet Count Result 27 k/mm3 (150-375); Red Blood Count 2.93 M/mm3 (4.6-6.20); Red Cell Distribution Width 13.8 % (11.5-14.5)
[2024-10-16 06:00] VITALS: BP 114/44; PULSE 63; RESP 13; TEMP 36.7; O2SAT 99
[2024-10-16 06:01] LABS: Ammonia 58 umol/L (9-30)
[2024-10-16 06:19] LABS: Alanine Aminotransferase 18 U/L (6-50); Albumin Level 3.5 g/dL (3.5-5.1); Alkaline Phosphatase 194 U/L (38-126); Anion Gap 10 mmol/L (4-12); Aspartate Amino Transferase 27 U/L (17-59); Bilirubin,Total 0.9 mg/dL (0.2-1.3); Blood Urea Nitrogen 37 mg/dL (9-20); Calcium 9.6 mg/dL (8.4-10.2); Carbon Dioxide 30 mmol/L (22-30); Chloride 99 mmol/L (98-107); Estimated CRCL calculation 14 ml/min; Estimated Glomerular Filt Rate 11; Glucose 110 mg/dL (65-110); Magnesium 2.2 mg/dL (1.6-2.3); Potassium 3.9 mmol/L (3.4-5.0); Sodium 139 mmol/L (137-145)
[2024-10-16 06:40] LABS: White Blood Count 1.6 K/mm3 (4.5-10.0)
--- NOTE | 2024-10-16 07:32 | PC.NURSE ---
To MRI per wheelchair.
--- NOTE | 2024-10-16 08:20 | PC.NURSE ---
Returned to room from MRI per wheelchair.
[2024-10-16 08:50] VITALS: PULSE 63
[2024-10-16] MEDS: nadoloL 20 MG TABLET PO (08:50)
[2024-10-16] MEDS: LACTULOSE 20 GM/30 ML UDC 40 GM PO (08:50)
[2024-10-16] MEDS: FUROSEMIDE 80 MG TABLET PO (08:50)
[2024-10-16] MEDS: SEVELAMER CARBONATE 800 MG TABLET 1600 MG PO (08:51)
[2024-10-16] MEDS: amLODIPine BESYLATE 5 MG TABLET PO (08:51)
[2024-10-16] MEDS: levETIRAcetam 250 MG TABLET 750 MG PO (08:51)
[2024-10-16] MEDS: FOLIC ACID 1 MG TABLET PO (08:51)
[2024-10-16] MEDS: PANTOPRAZOLE 40 MG TABLET PO (08:52)
--- NOTE | 2024-10-16 10:03 | P.DS_ITS ---
DS: Admitting Diagnosis Discharge Date 10/16/24 Admitting Diagnosis Slurred speech, confusion DS: Discharge Diagnosis Discharge Diagnosis (1) Slurring of speech: Code(s): R47.81 - Slurred speech Status: Acute Assessment and Plan: Differential diagnosis: TIA, CVA, encephalopathy, transient hypotension status post hemodialysis Confusion and reported slurred speech resolved in the ER, NIH stroke scale 0, patient received aspirin and admitted for MRI to rule out stroke Ammonia level moderate and 49. Patient received lactulose and no current symptoms present. -MRI brain and brainstem ordered without contrast only due to ESRD status -lipid panel ordered -daily aspirin -patient already had echocardiogram in 2020 with a negative bubble study at that time, do not believe this needs repeated. -Dr. Ro consulted by ER and stated admission here with MRI ok, no need to transfer since no Neurology coverage next 2 days. (2) ESRD needing dialysis: Code(s): N18.6 - End stage renal disease; Z99.2 - Dependence on renal dialysis Status: Chronic Assessment and Plan: -MWF dialysis schedule -Symptoms started after completion of dialysis Sunday10/13/24 -Labs stable -Repeat basic labs in AM -Nephrology consulted in case still a patient on Sunday and in need of dialysis while admitted, otherwise expect to resume outpatient dialysis as scheduled MWF. (3) Cirrhosis: Code(s): K74.60 - Unspecified cirrhosis of liver Status: Acute Assessment and Plan: -Stable labs -Ammonia was 49, lactulose given -May have been cause of slurred speech and transient confusion -Patient appears to be at baseline -Pancytopenia history also stable (4) Cardiac murmur: Code(s): R01.1 - Cardiac murmur, unspecified Status: Acute Assessment and Plan: -Loud holosystolic murmur present (chronic for 20 years per patient) -Does not appear to be in heart failure and echocardiogram from 2020 with negative bubble study and mild grade 1 diastolic dysfunction at that time -Only repeat Echo if condition changes (5) Pancytopenia: Code(s): D61.818 - Other pancytopenia Status: Acute Assessment and Plan: -Chronic, stable per labs -AM labs ordered -No anticoagulation for DVT prophylaxis due to platelet count 25 -consider stopping aspirin or prescribing less often than daily if MRI is negative for Stroke??? Plan This is a 58 year old male patient with a history of ESRD on Hemodialysis MWF, cirrhosis, pancytopenia and seizures who was evaluated in ER after a friend called EMS. Patient went to dialysis earlier today and after the session it appeared that he was wandering in the parking lot and had slurred speech. Patient states he actually just parked somewhere other than his usual space and originally went to usual space before remembering where he actually parked. Patient stated that he went home and a friend of his called EMS when it seemed he still had slurred speech. Patient reports that he feels well and was not sick prior to going to dialysis this morning. He states he is not sure that he ever needed to come to ER but w as agreeable to admission for MRI to rule out Stroke. Labs in ER show chronic pancytopenia with WBC 1.8, Hgb 8.9, PLT 25. These values are consistent with prior baseline values on record. INR 1.5 and CMP generally unremarkable considering patient's ESRD status. Ammonia level was 49 and he received lactulose. CXR and CT of head unremarkable. On my assessment patient not having any slurred speech or focal neuro defects. He does use walker for ambulation since he had surgery on right knee for septic arthritis a few months ago. patient seem to be his baseline and does not appear to be confused and he answers question appropriately, CT scan of head was negative and to further evaluate patient will have MRI of the brain, patient with history of liver failure due to previous history of alcohol abuse,resulting in pancytopenia for which is patient is seen by [id number] programmer and he is also on liver transplant and kidney transplant list, upon arrival patient ammonia levels were 49 and today the ammonia levels are 77 patient is taking lactulose 20mg TID, will CPM and monitor, patient with ESRD-HD seen by Dr. Elliott. will follow up on brain MRI and further recommendation to follow. DS: Summary Hospital Course Hospital Course: patient seem to be his baseline and does not appear to be confused and he answers question appropriately, CT scan of head was negative and to further evaluate patient will have MRI of the brain, patient with history of liver failure due to previous history of alcohol abuse,resulting in pancytopenia for which is patient is seen by [id number] programmer and he is also on liver transplant and kidney transplant list, upon arrival patient ammonia levels were 49 and today the ammonia levels are 77 patient is taking lactulose 20mg TID, will increase lactulose to 30mg TID, will CPM and monitor, patient with ESRD-HD seen by Dr. Elliott. will follow up on brain MRI and further recommendation to follow. Patient MRI of the brain is normal, patient is clinically stable, seen by neurologist, will discharge patient today. Time Spent with Patient Time attestation: Total time spent providing and/or coordinating discharge services: Exam Narrative: Patient is comfortable, NAD HEENT: eyes are clear and none icteric LUNGS:CTA HEART: RR S1S2 ABD: BS+, Soft and nontender Lower extremities: no edema SKIN: nonjaundiced Neuro: grossly intact. DS: Data Data Completed and Pending Labs on day of discharge: Labs from last 24 hours 10/16/24 10/15/24 10/15/24 05:42 14:45 08:37 WBC 1.6 L* RBC 2.93 L Hgb 9.3 L Hct 29.9 L MCV 102.0 H MCH 31.7 MCHC 31.1 L RDW 13.8 Plt Count 27 L MPV 11.1 H Immature Gran % (Auto) 0.6 H Neut % (Auto) 51.7 Lymph % (Auto) 31.4 [place] % (Auto) 11.3 H Eos % (Auto) 4.4 Baso % (Auto) 0.6 Lymph # (Auto) 0.50 L [place] # (Auto) 0.2 Eos # (Auto) 0.1 Baso # (Auto) 0.0 Abs Immat Gran (auto) 0.01 Absolute Neuts (auto) 0.8 L Absolute Nucleated RBC 0.000 Nucleated RBC % 0.0 % Immature Plt Fraction 5.1 Sodium 139 Potassium 3.9 Chloride 99 Carbon Dioxide 30 Anion Gap 10 BUN 37 H D Creatinine 5.32 H Estim Creat Clear Calc 14 Estimated GFR 11 L Glucose 110 Calcium 9.6 Magnesium 2.2 Total Bilirubin 0.9 AST 27 ALT 18 Alkaline Phosphatase 194 H Ammonia 58 H C-Reactive Protein < 0.5 Total Protein 6.0 L Albumin 3.5 Nasal MRSA (PCR) Not detected Discharge Plan Discharge Attending physician on discharge: Orlando Ballard Consulting providers: Chitra Dill; Heaven Landin; Deyvi Benson; Zay Barnes; Gregg Garcia Discharging Clinician: Livia Michaels Patient Disposition: Home Activity: as tolerated Diet: heart healthy Discharge Instructions: patient is instructed his lactulose is increased to 30mg three times a day from 20mg three times to have him check is ammonia levels in 2-4 days. patient will have his scheduled dialysis and will be seen by his service center representative, patient to follow up with his primary care provider as soon as possible, patient is instructed if any symptoms worsen to go to nearest ER. Patient Instructions: Antibiotic Form Patient Language: [place] Stand Alone Forms: General Discharge Information Follow-up/Referrals: Chitra Dill MD [Physician] - Efren Ramirez DO [Primary Care Provider] - Discharge Medications: New lactulose 10 gram/15 mL solution 30 g PO BID Qty: 1200 0RF Continued melatonin 3 mg tablet 3 mg PO HS levetiracetam 750 mg tablet 750 mg PO Q12H 30 Days Qty: 60 1RF sevelamer carbonate 800 mg tablet 800 mg PO DAILY Rx Instructions: 1-2 tablets before meals amlodipine 5 mg tablet 5 mg PO DAILY folic acid 1 mg tablet 1 mg PO DAILY furosemide 80 mg tablet 80 mg PO BID Qty: 180 3RF pantoprazole 40 mg tablet,delayed release (DR/EC) See Rx Instructions .ROUTE .COMPLEX Qty: 90 3RF Dose Instruction: TAKE 1 TABLET BY MOUTH DAILY Rx Instructions: TAKE 1 TABLET BY MOUTH DAILY nadolol 20 mg tablet See Rx Instructions .ROUTE .COMPLEX Qty: 90 3RF Dose Instruction: TAKE 1 TABLET BY MOUTH EVERY DAY Rx Instructions: TAKE 1 TABLET BY MOUTH EVERY DAY hydralazine 25 mg tablet See Rx Instructions .ROUTE .COMPLEX Qty: 270 0RF Dose Instruction: TAKE 1 TABLET BY MOUTH THREE TIMES DAILY Rx Instructions: TAKE 1 TABLET BY MOUTH THREE TIMES DAILY Discontinued lactulose 20 gram/30 mL solution 20 g PO TID 30 Days Qty: 0 0RF Patient Comments: currently takes 30mL/TID Rx Instructions: I wrote that odd number because pt wants to have 3 bottles at a time. I believe a bottle is 473ml. Date of admission: 10/14/24 06:57 Primary Care Provider: Efren Ramirez Admitting Provider: Orlando Ballard Attending physician on admission: Livia Michaels Condition: Improved
[2024-10-16 10:23] VITALS: PULSE 66
--- NOTE | 2024-10-16 11:22 | WPDNEURCNPN ---
Assessment and Plan Assessment and plan (1) Seizure disorder: Code(s): G40.909 - Epilepsy, unspecified, not intractable, without status epilepticus Status: Acute (2) Cardiac murmur: Code(s): R01.1 - Cardiac murmur, unspecified Status: Acute (3) Cirrhosis, alcoholic: Qualifiers: Ascites presence: without ascites Qualified Code(s): K70.30 - Alcoholic cirrhosis of liver without ascites Code(s): K70.30 - Alcoholic cirrhosis of liver without ascites Status: Acute (4) ESRD needing dialysis: Code(s): N18.6 - End stage renal disease; Z99.2 - Dependence on renal dialysis Status: Chronic Plan The patient is currently on Keppra 750 mg twice a day and he tells me that he was hospitalized at [facility] 2021. Although was not unable to confirm that he should be observed for any further spells of wandering. He should certainly should be advised not to drive. The dose of the Keppra can be increased further if you has seizure-like spells. Additionally extra doses may need to be given after hemodialysis. His recall me if I could be any further assistance. Consult date: 10/16/24 HPI: Jj Cuello is a 58 year old male With history of for chronic kidney disease on hemodialysis was seen for a neurologic evaluation. He has a episode at time of admission was found wandering in the parking lot and he was confused. Apparently this has happened 3 4 times were after hemodialysis he gets confused. He has history of some head trauma in 2021 so for which she was taken to [facility] and he was there for 3 weeks and he was started on Keppra. I was unable to verify any of the details and the patient is also not too sure but he remembers that he was told not to drive for 90 days. Patient lives by himself. He has been on Keppra 750 mg twice a day and he states that today he gets an extra dose on the days he has dialysis. He does drive and lives by himself. At this time he is feeling fair. Review of Systems Review of Systems: All systems reviewed & are unremarkable except as noted in HPI and below PMFSH Past Medical History Medical History Esophageal varices in alcoholic cirrhosis Facial hematoma Pancytopenia Seizure Cirrhosis, alcoholic Acute respiratory failure Cirrhosis Renal osteodystrophy Erythropoietin deficiency anemia Thrombocytopenia Coagulopathy Encephalopathy, hepatic Alcoholic liver failure ESRD needing dialysis Surgical History Surgical History H/O cataract removal with insertion of prosthetic lens History of vasectomy Status post biopsy of kidney Family History Family History Father Colon cancer Dementia Mother Aneurysm Social History Social History Social History: Caffeine-tea Smoking status: Never smoker Alcohol intake: former Alcohol use details: none since04/11/21 Substance use: never Substance use type: does not use Do You Feel Safe in your Home?: Yes Lack of Transportation: No Lack of Food: Never True Current Housing: I Have Housing Concerned About Future Housing: No Difficulty Paying Gas/Electric Bills: No Difficulty Paying for Meds: No Currently Unemployed: No Education: Master's Degree or Higher Difficulty w/ Childcare or Family Care: No Spiritual care concerns: No Meds Home Medications and Allergies Home Medications ?Medication ?Instructions ?Recorded ?Confirmed ?Type furosemide 80 mg tablet 80 mg PO BID #180 tabs 03/01/24 10/13/24 Rx melatonin 3 mg tablet 3 mg PO HS Sleep 03/27/24 10/13/24 History pantoprazole 40 mg tablet,delayed See Rx Instructions .Route 04/28/24 10/13/24 Rx release .COMPLEX #90 tabs levetiracetam 750 mg tablet 750 mg PO Q12H 30 days #60 tabs 08/21/24 10/13/24 Rx nadolol 20 mg tablet See Rx Instructions .Route 09/02/24 10/13/24 Rx .COMPLEX #90 tabs hydralazine 25 mg tablet See Rx Instructions .Route 09/23/24 10/13/24 Rx .COMPLEX #270 tabs amlodipine 5 mg tablet 5 mg PO DAILY 10/13/24 10/13/24 History folic acid 1 mg tablet 1 mg PO DAILY 10/13/24 10/13/24 History sevelamer carbonate 800 mg tablet 800 mg PO DAILY 10/13/24 10/13/24 History lactulose 10 gram/15 mL oral 30 g (45 mL) PO BID #1,200 mL 10/16/24 Rx solution Allergies Allergy/AdvReac Type Severity Reaction Status Date / Time No Known Allergies Allergy Unknown Verified 08/12/24 11:26 Vital Signs Vital Signs - 24 hr 10/15/24 11:30 10/15/24 11:45 10/15/24 12:00 Temperature Pulse Rate 58 L 59 L 60 Respiratory Rate Blood Pressure 135/68 125/64 131/65 Pulse Oximetry Oxygen Delivery 10/15/24 12:00 10/15/24 12:15 10/15/24 12:30 Temperature Pulse Rate 64 61 58 L Respiratory Rate Blood Pressure 138/68 129/66 Pulse Oximetry Oxygen Delivery 10/15/24 12:45 10/15/24 13:00 10/15/24 13:11 Temperature Pulse Rate 60 61 59 L Respiratory Rate Blood Pressure 133/60 126/65 124/61 Pulse Oximetry Oxygen Delivery 10/15/24 13:15 10/15/24 14:00 10/15/24 14:32 Temperature 97.3 F L Pulse Rate 60 60 64 Respiratory Rate 16 16 Blood Pressure 132/67 124/61 Pulse Oximetry 98 96 Oxygen Delivery 10/15/24 16:00 10/15/24 20:00 10/15/24 20:00 Temperature Pulse Rate 63 63 Respiratory Rate Blood Pressure Pulse Oximetry Oxygen Delivery Room Air 10/15/24 21:30 10/16/24 00:00 10/16/24 04:00 Temperature 98.1 F Pulse Rate 56 L 69 63 Respiratory Rate 13 Blood Pressure 134/48 L Pulse Oximetry 97 Oxygen Delivery 10/16/24 06:00 10/16/24 08:00 10/16/24 08:50 Temperature 98.1 F Pulse Rate 63 63 Respiratory Rate 13 Blood Pressure 114/44 L Pulse Oximetry 99 Oxygen Delivery Room Air 10/16/24 10:23 Temperature Pulse Rate 66 Respiratory Rate Blood Pressure Pulse Oximetry Oxygen Delivery Exam Const: General: cooperative, well developed and alert Orientation/consciousness: patient oriented x3 HENMT: Head: atraumatic Mouth: Yes oropharynx normal Eyes: Alignment and Position: position normal Pupils: Equal, round and reactive pupils present EOM: EOMs intact bilaterally Neck: Neck: supple Resp: Effort & Inspection: normal respiratory effort Cardio: Other: Systolic murmur over precordium radiating to both carotid arteries Skin: General skin exam: normal color Neuro: General: patient oriented x3 Cranial nerves: Yes CN's II-XII intact bilaterally, Yes facial sensation intact/muscles of mastication intact, Yes Equal, round and reactive pupils present, Yes facial symmetry and Yes Midline tongue present Cognition (Neuro): normal cognition Speech: normal speech Motor exam (neuro): 5/5 motor strength present throughout Coordination: [id number] test normal and Normal rapid alternating movements of the distal upper extremity present (Neuro) Other: patient unable to cooperate for the right lower limb since he had a surgery in the right knee however is able to lift his right knee normally and a over his ankles normally. No weakness. Results Labs 10/16/24 05:42 10/16/24 05:42 Labs: Short CBC 10/16/24 Range/Units 05:42 WBC 1.6 L* (4.5-10.0) K/mm3 Hgb 9.3 L (14.0-18.0) g/dL Hct 29.9 L (42.0-52.0) % Plt Count 27 L (150-375) k/mm3 BMP 10/16/24 05:42 Sodium 139 Potassium 3.9 Chloride 99 Carbon Dioxide 30 BUN 37 H D Creatinine 5.32 H Glucose 110 Calcium 9.6 Liver Function 10/16/24 Range/Units 05:42 Total Bilirubin 0.9 (0.2-1.3) mg/dL AST 27 (17-59) U/L ALT 18 (6-50) U/L Alkaline Phosphatase 194 H (38-126) U/L Albumin 3.5 (3.5-5.1) g/dL
== END 2024-10-16 11:10 | disposition home or self-care (01) | DRG 312 ==
LOC: ANHED 18:46 → ANH3MEDSUR 20:02
PROVIDERS: Internal Medicine Nephrology; Nurse Practitioner; Admitting Provider General Practice; Emergency Provider Emergency Medicine; PCP Internal Medicine; Visit Provider Family Medicine
DX: I95.3 Hypotension of hemodialysis (principal); N18.6 End stage renal disease; D61.818 Other pancytopenia; R41.82 Altered mental status, unspecified; R47.81 Slurred speech; G40.909 Epilepsy, unspecified, not intractable, without status epilepticus; K70.30 Alcoholic cirrhosis of liver without ascites; N25.0 Renal osteodystrophy; R01.1 Cardiac murmur, unspecified; D63.8 Anemia in other chronic diseases classified elsewhere; D63.1 Anemia in chronic kidney disease; Z99.2 Dependence on renal dialysis
CPT/HCPCS: 36415; 70450; 70551; 71045; 80053; 80061; 82140; 83540; 83550; 83605; 83735; 84484; 85025; 85055; 85610; 85730; 86140; 86706; 87340; 87641; 93005; 99285; A9270; G0257; G0378; J7030; Q5105

== ENCOUNTER 2025-05-02 15:20 | Inpatient (IN) | payer MEDICARE, SELFPAY ==
--- NOTE | ~2025-05-02 | XR_ITS ---
EXAMINATION: XR chest 1V portable COMPARISON: No comparisons available. HISTORY: altered mental status FINDINGS: Moderate pulmonary venous congestion. No pneumothorax. Moderate cardiomegaly. Mediastinal and hilar contours are within normal limits. Bony thorax no acute abnormality. Miscellaneous: None Impression: CHF Reviewed, dictated and finalized at location P. Impression: CHF
--- NOTE | ~2025-05-02 | US_ITS ---
Ultrasound carotid duplex Indication: possible TIA vs stroke Comparison: None Technique: Grayscale and color Doppler ultrasound examination of the carotid and vertebral artery systems bilaterally. Maximum peak systolic velocity (PSV) / end diastolic velocity (EDV) measurements were obtained. Findings: Right Carotid System Right Common Carotid Artery (RCCA): 84 / 14 cm/s. Calcified plaque causes less than 50% narrowing of the lumen Right Internal Carotid Artery (AUREA): 74 / 18 cm/s. Calcified plaque causes less than 50% narrowing of the lumen Right External Carotid Artery (RECA): 124 cm/s. Calcified plaque causes less than 50% narrowing of the lumen .Normal waveform noted. Right ICA/CCA ratio 1.0 . Right Vertebral Artery (RVA): 67 cm/s. Antegrade flow. Left Carotid System Left Common Carotid Artery (LCCA): 118 / 14 cm/s. Calcified plaque causes less than 50% narrowing of the lumen . Left Internal Carotid Artery (LICA): 82 / 17 cm/s. Calcified plaque causes less than 50% narrowing of the lumen. Left External Carotid Artery (LECA): 125 cm/s. Calcified plaque causes less than 50% narrowing of the lumen.Normal waveform noted. Left ICA/CCA ratio 1.1 . Left Vertebral Artery (LVA): 40 cm/s. Antegrade flow. Other findings: None Impression: 1.Right internal carotid artery: [Less than 50% stenosis 2.Left internal carotid artery: [Less than 50% stenosis 3.Vertebral arteries: Antegrade flow. Reviewed, dictated and finalized at location P. [employer] Impression: 1.Right internal carotid artery: [Less than 50% stenosis 2.Left internal carotid artery: [Less than 50% stenosis 3.Vertebral arteries: Antegrade flow.
--- NOTE | ~2025-05-02 | MR_ITS ---
EXAMINATION: MR brain/brain stem wo con DATE: 05/06/2025 13:08 INDICATION: Acute onset of confusion and aphasia TECHNIQUE: Magnetic resonance imaging (MRI) of the brain and brainstem was performed without intravenous contrast. Sequences included sagittal and axial T1-weighted SE, axial diffusion-weighted FS SE, axial 3D SWAN, axial T2-weighted FLAIR, and axial T2-weighted FSE. Apparent diffusion coefficient (ADC) maps were created. COMPARISON: Head CT dated 05/02/2025 and brain MR dated 10/16/2024 FINDINGS: There are no areas of restricted diffusion to suggest acute infarction. No acute intracranial hemorrhage or abnormal intracranial mass lesion. There are a few unchanged tiny foci of susceptibility artifact in the possible hemispheres consistent with sequela of chronic microhemorrhage such as in the setting of hypertension. There are scattered areas of nonspecific increased T2-weighted signal intensity in the cerebral white matter, predominantly involving the deep and periventricular white matter. There are no intraparenchymal signal abnormalities seen on the other pulse sequences. The ventricles are symmetric and normal in size. There are no abnormal extra-axial fluid collections. Flow voids are seen in the cerebral arteries on the T2-weighted sequences consistent with their expected patency. Mild mucosal thickening the paranasal sinuses. Visualized orbits and soft tissues are unremarkable. IMPRESSION: 1. No acute intracranial process. 2. Stable appearance of mild to moderate periventricular predominant nonspecific white matter T2 hyperintensity consistent with chronic small vessel ischemic disease. 3. A few unchanged tiny foci of susceptibility artifact in the bladder cerebral hemispheres consistent with sequela of chronic microhemorrhage, typically seen in the setting of hypertension. Reviewed, dictated and finalized at location A. TER HAND IMPRESSION: 1. No acute intracranial process. 2. Stable appearance of mild to moderate periventricular predominant nonspecifi c white matter T2 hyperintensity consistent with chronic small vessel ischemic disease. 3. A few unchanged tiny foci of susceptibility artifact in the bladder cerebral hemispheres consistent with sequela of chronic microhemorrhage, typically seen in the setting of hypertension.
--- NOTE | ~2025-05-02 | CT_ITS ---
EXAMINATION: CT brain wo odalis, 05/02/2025 16:00 CDT HISTORY: altered mental status COMPARISON: No comparisons available. Technique: Axial images obtained of the brain without contrast. One or more of the following dose reduction techniques were used: automated exposure control, adjustment of the mA and/or kV according to patient size, use of iterative reconstruction technique. Findings: No acute infarct or parenchymal hemorrhage. No abnormal mass or mass effect. No midline shift. No extra-axial fluid collections. No hydrocephalus. Mastoid air cells unremarkable. Sinuses and orbits unremarkable. No acute fracture. No significant facial or scalp soft tissue swelling evident. No radiopaque foreign body is seen. Impression: 1. Motion artifact limits evaluation. No acute infarct or hemorrhage Reviewed, dictated and finalized at location P. Impression: 1. Motion artifact limits evaluation. No acute infarct or hemorrhage
[2025-05-02 15:20] VITALS: BP 198/72; PULSE 60; RESP 16; TEMP 36.8; O2SAT 100
--- NOTE | 2025-05-02 15:25 | ECG_ITS ---
Test Date: 2025-05-02 16:47:42 Measurements Intervals [place] Rate: 57 P: 45 KS: 235 QRS: 28 QRSD: 113 T: 46 QT: 517 QTc: 504 Interpretive Statements SINUS BRADYCARDIA WITH FIRST DEGREE AV BLOCK INCOMPLETE RIGHT BUNDLE BRANCH BLOCK [90+ ms QRS DURATION, TERMINAL R IN V1/V2, 40+ ms S IN I/aVL/V4/V5/V6] NONSPECIFIC ST & T-WAVE ABNORMALITY PROLONGED QT INTERVAL CRITICAL TEST RESULT Compared to ECG 10/13/2024 17:32:56 T-wave abnormality now present Prolonged QT interval now present Electronically Signed On 05-03-2025 03:09:23 [employer]ERAL HOME MANAGER by Emiliano Joseph M.D.
--- NOTE | 2025-05-02 15:37 | ED.AMS ---
HPI - Altered Mental Status General Chief Complaint: Altered Mental Status Stated Complaint: ams Time Seen by Provider: 05/02/25 15:20 History of Present Illness HPI narrative: Patient is a 59-year-old male presents to the ER with altered mental status following dialysis. He is altered at time of examination unable to answer simple questions or follow simple commands. Per EMS, patient received his full session of dialysis today. His medical chart indicates he has a history of seizures, high blood pressure, and receives dialysis. Last known well was prior to dialysis sometime this morning. Related Data Home Medications ?Medication ?Instructions ?Recorded ?Confirmed ?Last Taken ?Type melatonin 3 mg tablet 3 mg PO HS Sleep 03/27/24 10/13/24 Unknown History amlodipine 5 mg tablet 5 mg PO DAILY 10/13/24 10/13/24 10/13/24 04:00 History folic acid 1 mg tablet 1 mg PO DAILY 10/13/24 10/13/24 10/13/24 04:00 History sevelamer carbonate 800 mg tablet 800 mg PO DAILY 10/13/24 10/13/24 Unknown History Allergies Allergy/AdvReac Type Severity Reaction Status Date / Time No Known Allergies Allergy Unknown Verified 08/12/24 11:26 Review of Systems Review of Systems: All systems reviewed & are unremarkable except as noted in HPI and below PMFSH Past Medical History Medical History Esophageal varices in alcoholic cirrhosis Facial hematoma Pancytopenia Seizure Cirrhosis, alcoholic Acute respiratory failure Cirrhosis Renal osteodystrophy Erythropoietin deficiency anemia Thrombocytopenia Coagulopathy Encephalopathy, hepatic Alcoholic liver failure ESRD needing dialysis Surgical History Surgical History H/O cataract removal with insertion of prosthetic lens History of vasectomy Status post biopsy of kidney Family History Family History Father Colon cancer Dementia Mother Aneurysm Social History Social History Social History: Caffeine-tea Smoking status: Never smoker Alcohol intake: former Alcohol use details: none since04/11/21 Substance use: never Substance use type: does not use Do You Feel Safe in your Home?: Yes Lack of Transportation: No Lack of Food: Never True Current Housing: I Have Housing Concerned About Future Housing: No Difficulty Paying Gas/Electric Bills: No Difficulty Paying for Meds: No Currently Unemployed: No Education: Master's Degree or Higher Difficulty w/ Childcare or Family Care: No Spiritual care concerns: No Exam Narrative: GENERAL: Ill appearing, poorly nourished, non-toxic, in no acute distress. HEAD: Normocephalic, atraumatic. NECK: Supple. No adenopathy, no masses. RESPIRATORY: Airway patent, respirations nonlabored. Clear to auscultation bilaterally, no rales, rhonchi, wheezing. CARDIOVASCULAR: Regular rate and rhythm without murmurs, rubs, or gallops. Peripheral pulses 2+ and equal bilaterally. ABDOMINAL: Soft, nontender, nondistended. Normoactive BS. MUSCULOSKELETAL: Moves all extremities. Strength/ROM intact without gross deformities. SKIN: Warm, dry, mildly jaundice. No rashes. NEURO: unable to follow verbal commands Course Vital Signs Vital signs: Vital Signs Temperature 36.8 C 05/02/25 15:20 Pulse Rate 60 05/02/25 15:20 Respiratory Rate 16 05/02/25 15:20 Blood Pressure 198/72 H 05/02/25 15:20 Pulse Oximetry 100 05/02/25 15:20 Oxygen Delivery Room Air 05/02/25 15:20 Temperature 36.8 C 05/02/25 15:20 Pulse Rate 60 05/02/25 15:20 Respiratory Rate 16 05/02/25 15:20 Blood Pressure 198/72 H 05/02/25 15:20 Pulse Oximetry 100 05/02/25 15:20 Oxygen Delivery Room Air 05/02/25 15:30 MDM - Altered Mental Status MDM Narrative Medical decision making narrative: Patient is a 59-year-old male presents to the ER with altered mental status following dialysis. He is altered at time of examination unable to answer simple questions or follow simple commands. Per EMS, patient received his full session of dialysis today. His medical chart indicates he has a history of seizures, high blood pressure, and receives dialysis. Last known well was prior to dialysis sometime this morning. Labs Ordered: CBC, CMP, coags, ABG, ethanol level, magnesium, phosphorus Imaging Ordered: CT brain, chest x-ray Medications Ordered: Lactulose p.o. Results: Pt's CT scan indicates No acute infarct or parenchymal hemorrhage. No abnormal mass or mass effect. No midline shift. No extra-axial fluid collections. No hydrocephalus. Mastoid air cells unremarkable. Sinuses and orbits unremarkable. No acute fracture. No significant facial or scalp soft tissue swelling evident. No radiopaque foreign body is seen. Pt's ammonia level is 131. His platelet level is 22, which is consistent with his baseline. Diagnosis: Altered mental status, pancytopenia, thrombocytopenia, hypocalcemia, chronic kidney disease, hyperammonia Consults: nephrology, neurology MDM: Results of imaging and lab work shared with patient. It was advised patient be admitted to the hospital for further evaluation and treatment. 1819-Spoke with hospitalist, SHELBI Friedman, who was in agreement with plan for admission. Pt will be admitted to the IMU. 1899-Spoke with neurologist, Dr. Ace, who agrees to consult on pt tomorrow. Differential Diagnosis Differential diagnosis: Likely alcoholic intoxication, altered mental status, delirium and subarachnoid hemorrhage Lab Data Attestation: I reviewed the patient's lab results. 05/02/25 17:37 05/02/25 17:30 Labs: Lab Results 05/02/25 05/02/25 Range/Units 17:30 17:37 WBC 1.9 L* (4.5-10.0) K/mm3 RBC 2.55 L (4.6-6.20) M/mm3 Hgb 8.4 L (14.0-18.0) g/dL Hct 25.2 L (42.0-52.0) % MCV 98.8 (80-100) fl MCH 32.9 (26-34) pg MCHC 33.3 (32-36) g/dl RDW 14.4 (11.5-14.5) % Plt Count 22 L* (150-375) k/mm3 MPV 11.2 H (7.4-10.4) fl Immature Gran % (Auto) 0.5 (0-0.5) % Neut % (Auto) 55.1 (45.5-73.1) % Lymph % (Auto) 29.8 (18.3-44.2) % [place] % (Auto) 9.4 H (2.6-8.5) % Eos % (Auto) 4.2 (0-4.4) % Baso % (Auto) 1.0 (0.2-1.2) % Lymph # (Auto) 0.57 L (0.9-3.2) K/mm3 [place] # (Auto) 0.2 (0.1-0.6) K/mm3 Eos # (Auto) 0.1 (0-0.3) K/mm3 Baso # (Auto) 0.0 (0.0-0.1) K/mm3 Abs Immat Gran (auto) 0.01 (0.00-0.031) K/mm3 Absolute Neuts (auto) 1.1 L (1.3-6.7) K/mm3 Absolute Nucleated RBC 0.000 (0.0-0.012) K/mm3 Band Neutrophils % Not Reportable Nucleated RBC % 0.0 (0.0-0.2) % Platelet Estimate Decreased (Adequate) % Immature Plt Fraction 4.9 (0.9-11.2) % Ovalocytes Occasional Schistocytes None seen PT 19.8 H (11.1-14.7) Seconds INR 1.7 APTT 36.0 (22.3-36.8) Seconds Sodium 136 L (137-145) mmol/L Potassium 3.9 (3.4-5.0) mmol/L Chloride 98 (98-107) mmol/L Carbon Dioxide 31 H (22-30) mmol/L Anion Gap 7 (4-12) mmol/L BUN 25 H D (9-20) mg/dL Creatinine 4.04 H (0.7-1.3) mg/dL Estim Creat Clear Calc Not Reportable Estimated GFR 15 L (59 - ) Glucose 120 H (65-110) mg/dL Calcium 7.7 L (8.4-10.2) mg/dL Phosphorus 2.5 (2.5-4.5) mg/dL Magnesium 2.2 (1.6-2.3) mg/dL Total Bilirubin 1.5 H (0.2-1.3) mg/dL AST 20 (17-59) U/L ALT 15 (6-50) U/L Alkaline Phosphatase 137 H (38-126) U/L Ammonia 131 H (9-30) umol/L Total Protein 6.4 (6.3-8.2) g/dL Albumin 3.6 (3.5-5.1) g/dL Ethyl Alcohol < 10 (<10) mg/dL ABG Data ABG results: 05/02/25 15:37 Puncture Site Right radial ABG pH 7.535 H* ABG pCO2 32.9 L ABG pO2 101.2 H ABG PO2/FiO2 Ratio 4.82 ABG HCO3 27.2 H ABG O2 Saturation 98.2 ABG O2 Content 12.4 L ABG Base Excess 4.5 A-a Gradient 9.1 Oxyhemoglobin 96.2 Total Hemoglobin 9.0 L O2 Delivery Device Not Reportable O2 Liters/Min Not Reportable FiO2 21 Imaging Data Attestation: I personally reviewed and interpreted this imaging study as follows: Radiologist's impression: Impressions Chest X-Ray 05/02/25 16:01 Impression: CHF Head CT 05/02/25 16:17 Impression: 1. Motion artifact limits evaluation. No acute infarct or hemorrhage Discharge Plan Discharge Clinical Impression: Alcoholic liver failure, Acute alteration in mental status, Pancytopenia, Anemia, End stage renal disease, Seizure disorder, Cirrhosis Patient Disposition: Still a Patient Condition: Guarded Prognosis Patient Language: [place] Prescriptions: No Action melatonin 3 mg tablet 3 mg PO HS levetiracetam 750 mg tablet 750 mg PO Q12H 30 Days Qty: 60 1RF sevelamer carbonate 800 mg tablet 800 mg PO DAILY Rx Instructions: 1-2 tablets before meals amlodipine 5 mg tablet 5 mg PO DAILY folic acid 1 mg tablet 1 mg PO DAILY pantoprazole 40 mg tablet,delayed release (DR/EC) See Rx Instructions .ROUTE .COMPLEX Qty: 90 3RF Dose Instruction: TAKE 1 TABLET BY MOUTH DAILY Rx Instructions: TAKE 1 TABLET BY MOUTH DAILY nadolol 20 mg tablet See Rx Instructions .ROUTE .COMPLEX Qty: 90 3RF Dose Instruction: TAKE 1 TABLET BY MOUTH EVERY DAY Rx Instructions: TAKE 1 TABLET BY MOUTH EVERY DAY lactulose 10 gram/15 mL solution 40 g PO TID Qty: 3000 11RF furosemide 80 mg tablet See Rx Instructions .ROUTE .COMPLEX Qty: 180 3RF Dose Instruction: TAKE 1 TABLET BY MOUTH TWICE DAILY Rx Instructions: TAKE 1 TABLET BY MOUTH TWICE DAILY hydralazine 25 mg tablet See Rx Instructions .ROUTE .COMPLEX Qty: 270 3RF Dose Instruction: TAKE 1 TABLET BY MOUTH THREE TIMES DAILY Rx Instructions: TAKE 1 TABLET BY MOUTH THREE TIMES DAILY Follow-up/Referrals: Efren Ramirez, [Primary Care Provider, Internal Medicine]
[2025-05-02 15:44] LABS: Alveolar/Arterial O2 Gradient 9.1 mmHg; Fractional Inspired Oxygen 21 %; HCO3 ABG 27.2 mEq/l (22.0-26.0); Oxygen Content ABG 12.4 %vol (16.0-22.0); Oxygen Saturation ABG 98.2 % (95.0-100.0); PCO2 ABG 32.9 mmHg (35.0-45.0); PO2 ABG 101.2 mmHg (80.0-100.0); PO2 FiO2 Ratio Arterial Blood 4.82 %
[2025-05-02 15:46] LABS: Modified Allen's Test Pass; Site Drawn RIGHT RADIAL
--- OUTSIDE RECORDS SUMMARY | 2025-05-02 16:06 | XMS_ITS | Encounter Summary ---
Author Organization [facility] Healthcare Address [address] [place] [address] Care Team Providers Care Real Estate Intern Name Role Phone Dm Pena MD Primary Care Provider +- [phone] Hermelindo Avilez MD Unavailable [phone] Milla Calero RN Unavailable [phone] Melecio Graves MD Unavailable [phone] Nupur Shea RN Unavailable Unavailabl e Salena Hobson RN Unavailable [phone] Encounter Details Date Type Department Care Team (Late st Contact Info) Description 11/20/2024 Telephone [facility] [address] [place] [address] Pete Santoro, RT Social History Tobacco Use Types Packs/Day Years Used Date Smoking Tobacco: Never Smokeless Tobacco: Never Alcohol Use Standard Drinks/Week Comments Not Currently 0 (1 standard drink = 0.6 oz pur e alcohol) Last drink May, Social Connection and Isolation Panel Answer Date Recorded In a typical week, how many times do you talk on the phone with family, friends, or neighbors? Once a week 09/21/2020 How often do you get togethe r with friends or relatives? Never 09/21/2020 How often do you attend chur ch or baptist services? 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 Gender Identity Not on file Sexual Orientation Not on file Occupation Industry Job Start Date Job End Date [employer] Not on file Not on file Not on file documented as of this encounter Plan of Treatment Scheduled Procedures Name Priority Associated Diagnoses Date/Ti me TRANSPLANT LIVER Encounter for pre-transplant evaluation for liver transplant Alcoholic liver disease documented as of this encounter Visit Diagnoses Not on filedocumented in this encounter Care Teams Real Estate Intern Relationship Specialty Start Date End Date Dm Pena MD [address], [place] [address] PCP - General 03/05/19 Hermelindo Avilez MD [address], [place] [address] Referring Physician Nephrology 09/23/20 Milla Calero, RN [address] [place] [address] Commercial Lines Assistant 09/10/24 Melecio Graves MD [address] [place] [address] Referring Physician Internal Medicine 09/10/24 Nupur Shea clinical education specialistCommercial Lines Assistant 09/30/24 Salena Hobson, RN [address] [place] [address] Secondary Kidney Coordinator 10/27/24 01/20/25 documented as of this encounter
--- OUTSIDE RECORDS SUMMARY | 2025-05-02 16:06 | XMS_ITS | Encounter Summary ---
Author Organization [facility] Address [facility] [place] [address] Care Team Providers Care Communication Coordinator Name Role Phone Lonnie Schaefer DO Primary Care Provider Dm Pena MD Primary Care Provider [phone] Encounter Details Date Type Department Care Team (Late st Contact Info) Description 09/15/2017 Abstract [facility] CONVERSION [address] [place] [address] , Generic Conversion, Social History Tobacco Use [...] on filedocumented in this encounter Care Teams Communication Coordinator Relationship Specialty Start Date End Date Lonnie Schaefer DO [address] [place] [address] PCP - General 11/17/14 10/22/18 Dm Pena MD [address] [id number] PCP - General FAMILY PRACTICE 10/23/18 documented as of this encounter
--- OUTSIDE RECORDS SUMMARY | 2025-05-02 16:07 | XMS_ITS ---
Author Organization [facility] Address [address] [place] [address] Care Team Providers Care Flavoring Oil Filterer Name Role Phone Dm Pena MD Primary Care Provider + [phone] Hermelindo Avilez MD Unavailable [phone] Milla Calero RN Unavailable [phone] Melecio Graves MD Unavailable [phone] Nupur Shea RN Unavailable Unavailabl e Transplant Episode Kidney Candidate [facility] ([place], [place] - [facility] Evaluation began on 09/30/2024 Marked as Active on 09/30/2024 Reason: Evaluation - Standard Kidney CoordinatorNupur Shea RN Phone: N/A Fax: N/A Email: N/A Scores Score Value Updated Exceptions/Reas ons CPRA Not available EPTS (Calc) 52 05/02/2025 [place] 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
--- OUTSIDE RECORDS SUMMARY | 2025-05-02 16:07 | XMS_ITS | Clinical Summary ---
Author Organization [facility] Office Center Address [address] [place] [address] Care Team Providers Care Electrical Construction Project Manager Name Role Phone Dm Pena MD Primary Care Provider [phone] Hermelindo Avilez MD Unavailable [phone] Milla Calero RN Unavailable [phone] Melecio Graves MD Unavailable [phone] Nupur Shea RN Unavailable Unavailabl e Allergies [...] Encounters Date Type Department Care Team Description 04/23/[address] [facility] Transplant Liver [address] [facility] [address] [id number] [place] [address] Hermelinda Choudhary 04/21/[address] [facility] Transplant Kidney [address] [facility] [address] [id number] [place] [address] Nupur Shea, DIVINE 04/21/2025 Telephone [facility] Transplant Liver [address] [facility] [address] [id number] [place] [address] Milla Calero, RN 03/12/[address] [facility] Transplant Kidney [address] [facility] [address] Mail[address] [id number] [place] [address] Nupur Shea, DIVINE 03/12/2025 Telephone [facility] Transplant Liver [address] [facility] [address] [id number] [place] [address] Milla Calero, RN 03/12/[address] [facility] Transplant Liver [address] [facility] [facility] [address] Mailstop [id number] [place] [address] Milla Calero, RN from Last 3 Months Surgical History Surgery Date Site/Laterality Comments CT VASECTOMY UNI/BI SPX W/PO STOP SEMEN EXAMS [...] often do you attend chur ch or confucianist services? 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 Not on file Not on file Not on file Obstetrics History Last Filed Vital Signs Vital Sign Reading Time Taken Comments Blood Pressure 171/83 03/09/2021 8:37 AM CDT Pulse 80 03/09/2021 8:37 AM CDT Temperature 37 C (98.6 F) 03/09/2021 8:37 AM CDT Respiratory Rate - - Oxygen Saturation 100% 03/05/2019 2:31 PM CDT Inhaled Oxygen Concentration - - Weight 76.3 kg (168 lb 3.4 oz) 10/17/2024 8:51 A M CDT Height 175.3 cm (5' 9) 10/17/2024 8:51 AM CDT Body Mass Index 24.84 10/17/2024 8:51 AM CDT Plan of Treatment Scheduled Procedures Name Priority Associated Diagnoses Date/Ti me TRANSPLANT LIVER Encounter for pre-transplant evaluation for liver transplant Alcoholic liver disease Health Maintenance Due Date Last Done Comments Colon Cancer Screening-Colonoscopy 1965 Depression Screening 1965 Regular Well Visit/Exam 18-64 12/07/1983 Prostate Cancer Screening-PSA 09/22/2022 09/22/2020 Zoster Vaccine (2 of 2) 01/08/2024 11/13/2023 Covid-19 Vaccine (2 - 2024-2 6 season) 2025 09/16/2020 Influenza Vaccine (#1) 2025 , 05/31/2021, 04/06/2020, Additional history exists DTaP/Tdap/Td Vaccine (2 - Td or Tdap) 12/25/2027 12/24/2017 Hepatitis C Screening Completed 09/22/2020, 015 Pneumococcal vaccine <65 Completed 11/13/2023, 0509/2021 Procedures Procedure Name Priority Date/Time Associated Diagnosis Comments HEPATITIS C ANTIBODY Routine 09/22/2020 12:51 PM CDT Alcoholic liver disease PSA SCREEN Routine 09/22/2020 12:51 PM CDT Alcoholic liver disease from Last 3 Months or Most Recently Relevant to Health Maintenance Results * PSA screen (09/22/2020 12:51 PM CDT) Pathologist [facility] PSA-Total 0.76 <=3.90 ng/mL [facility] Comment: Interpretive Data AGE SEX REFERENCE INTERVAL 0 minutes-150 years Female None 0 minutes-49 years Male None 50-59 years Male 0-3.90 60-69 years Male 0-5.40 70-79 years Male 0-6.20 80-150 years Male 0-6.20 Current interpretive data last revised 2018. Blood specimen (specimen) 09/22/2020 12:51 PM CDT 09/22/2020 1:40 PM CDT Dean Echols MD LAB BLOOD ORDERABLES F inal Result Performing Organization Address [facility]/ZIP Co de Phone Number [facility] Department [place] [place] [address] * Hepatitis C antibody (09/22/2020 12:51 PM CDT) Pathologist [facility] Hep C Ab Nonreactive Nonreactive [facility] Comment:Antibodies to HCV no t detected. Does NOT exclude the possibility of recent exposure to HCV. Blood specimen (specimen) 09/22/2020 12:51 PM CDT 09/22/2020 1:40 PM CDT Dean Echols MD LAB MICROBIOLOGY - GEN ERAL ORDERABLES Edited Result - Final Performing Organization Address [facility]/ZIP Co de Phone Number [facility] [place] [address] from Last 3 Months or Most Recently Relevant to Health Maintenance Insurance [place] MEDICARE MEDICARE [facility] MEDICARE SUPPLEMENT MEDICARE Care Teams Electrical Construction Project Manager Relationship Specialty Start Date End Date Dm Pena MD [address] [place], [place] [address] PCP - General 03/05/19 Hermelindo Avilez MD [address] [place], [place] [address] Referring Physician Nephrology 09/23/20 Milla Calero, RN [address] [address] Electrologist 09/10/24 Melecio Graves MD [address] [place] [address] Referring Physician Internal Medicine 09/10/24 Yearout, Nupur Santana, wireline field operatorElectrologist 09/30/24
--- OUTSIDE RECORDS SUMMARY | 2025-05-02 16:07 | XMS_ITS ---
Author Organization [facility] Office Center Address [address] [place] [address] Care Team Providers Care Associate Professor Of Surgery Name Role Phone Dm Pena MD Primary Care Provider + [phone] Hermelindo Avilez MD Unavailable [phone] Milla Calero RN Unavailable Melecio Graves MD Unavailable Nupur Shea RN Unavailable Unavailabl e Transplant Episode Liver Candidate [facility] ([place], [place]) - [facility] Evaluation began on 09/30/2024 Marked as Active on 09/30/2024 Reason: Evaluation - Standard Liver CoordinatorMilla Calero RN Fax: N/A Email: N/A [place] Organ Diagnosis Organ Primary Contributory Liver Alcoholic Cirrhosis Care Team Name Role Phone Fax Email Milla Calero RN Liver Coordinator [phone] N/A N/A Melecio Graves MD Referring Physician [phone] N/A Mckenzie Ibarra Primary Slp N/A N/A N/A Sena Luque Shotblast Equipment Operator [phone] N/A N/A Cyndi Maxwell RN Secondary Coordinator [phone] N/A Events Pre-Transplant Referred: 09/10/2024 Evaluation began: 09/30/2024 Dialysis History Dialysis History Start End Type Comments Center 03/14/2019 In-center Hemodialysis MWF 5:30AM-9A M [facility] Dialysis Center Information Center Phone Fax Address [facility] [phone] [address] [facility] [address]
--- OUTSIDE RECORDS SUMMARY | 2025-05-02 16:07 | XMS_ITS | Clinical Summary ---
Author Organization [facility] Address [address] [place] [address] Phone Care Team Providers Care Medical Services Coordinator Name Role Phone Unavailable Primary Care Provider [...] of 3 - 19+ 3-dose series) 1984 Cologuard 2010 Colonoscopy 2010 Colorectal Cancer Screening 2010 Immunochemical Fecal Occult Blood 2010 Zoster Immunization (1 of 2) 12/07/2015 Pneumococcal Immunization (5 0+ years) (2 of 2 - PCV) 11/02/2022 11/02/2021 Influenza Immunization (#1) 03/02/202503/03, 04/27/2017, 04/02/2015 SARS-COV-2 Immunization ( season) 2025 Respiratory Syncytial Virus (RSV) Immunization (Adult) (1 - 1-dose 75+ series) 2040 DTaP/Tdap/Td Immunization Discontinued 12/24/2017 TdaP Immunization Completed 12/24/2017 Pneumococcal Immunization Combined Discontinued 11/02/2021 Human Papillomavirus (HPV) Immunization Aged Out No longer eligible based on patient's age to complete this topic Meningococcal Immunization (ACWY) Aged Out No longer eligible based on patient's age to complete this topic Rotavirus Immunization Aged Out No lo nger eligible based on patient's age to complete this topic
[2025-05-02 17:47] LABS: Hematocrit 25.2 % (42.0-52.0); Hemoglobin 8.4 g/dL (14.0-18.0); Immature Granulocyte Percent A 0.5 % (0-0.5); Immature Platelet Fraction Pct 4.9 % (0.9-11.2); Lymphocytes Absolute Auto 0.57 K/mm3 (0.9-3.2); Mean Corpuscular HGB Conc 33.3 g/dl (32-36); Mean Corpuscular Hemoglobin 32.9 pg (26-34); Mean Corpuscular Volume 98.8 fl (80-100); Nucleated Red Blood Cells Absolute Auto 0.000 K/mm3 (0.0-0.012); Nucleated Red Blood Cells Perc 0.0 % (0.0-0.2); Red Blood Count 2.55 M/mm3 (4.6-6.20)
[2025-05-02 17:47] LABS: Ammonia 131 umol/L (9-30)
[2025-05-02 17:48] LABS: Alanine Aminotransferase 15 U/L (6-50); Albumin Level 3.6 g/dL (3.5-5.1); Alkaline Phosphatase 137 U/L (38-126); Anion Gap 7 mmol/L (4-12); Aspartate Amino Transferase 20 U/L (17-59); Bilirubin,Total 1.5 mg/dL (0.2-1.3); Blood Urea Nitrogen 25 mg/dL (9-20); Calcium 7.7 mg/dL (8.4-10.2); Carbon Dioxide 31 mmol/L (22-30); Chloride 98 mmol/L (98-107); Estimated Glomerular Filt Rate 15; Glucose 120 mg/dL (65-110); Potassium 3.9 mmol/L (3.4-5.0); Sodium 136 mmol/L (137-145); Total Protein 6.4 g/dL (6.3-8.2)
[2025-05-02 17:58] LABS: INR 1.7; Partial Thromboplastin Time 36.0 Seconds (22.3-36.8); Prothrombin Time 19.8 Seconds (11.1-14.7)
[2025-05-02 18:02] LABS: White Blood Count 1.9 K/mm3 (4.5-10.0)
[2025-05-02 18:03] LABS: Platelet Count Result 22 k/mm3 (150-375)
[2025-05-02 18:04] LABS: Ovalocytes Occasional; Schistocytes None Seen
[2025-05-02] MEDS: LACTULOSE 20 GM/30 ML UDC PO (18:42)
[2025-05-02 19:00] LABS: Magnesium 2.2 mg/dL (1.6-2.3)
[2025-05-02] MEDS: SODIUM CHLORIDE 0.9% IV 1,000 ML 125 ML IV CONT (19:26)
[2025-05-02 19:48] VITALS: BP 188/71; PULSE 57; RESP 12; O2SAT 99
[2025-05-02 20:17] VITALS: BMI 22.7
[2025-05-02 20:28] VITALS: PULSE 57
[2025-05-02 21:06] VITALS: BP 179/59; PULSE 57; RESP 16; TEMP 36.4; O2SAT 100
[2025-05-02 21:16] VITALS: PULSE 57; RESP 20; O2SAT 95
--- NOTE | 2025-05-02 21:16 | PC.NURSE ---
This patient, Jj Cuello, was admitted to IMU Room 207-01. Patient/family oriented to hospital policies and general routines including ID bracelet, bed and alarms, visiting hours, pain management, procedures, bathroom and other care routines, personal items, smoking policy, room service/diet, and visiting hours. Information on how to activate the Rapid Response Team has been discussed. Patient/Family are encouraged to report perceived risks to care and to ask questions if they do not understand what they are told or what they should do.
--- NOTE | 2025-05-02 21:17 | PCRCNOTE ---
Pt said he did not want to wear CPAP.
--- NOTE | 2025-05-02 21:45 | PM.IMHP ---
H&P: HPI History of Present Illness Date/Time: 05/02/25 21:45 Chief Complaint: Altered mental status Narrative: 59-year-old male with history of alcohol use disorder, chronic pancytopenia, ESRD on dialysis, cirrhosis, seizure disorder, holosystolic murmur, chronic intermittent hepatic encephalopathy. He reports to [facility] ER on 05/02/2025 from dialysis as he was reported to be confused. He has a chronic history of becoming confused after dialysis. The patient is a poor historian, he answers nonsensically. Many of his medications have not been refilled in 3-5 months however he reports taking them. Reportedly he lives at home alone. His last known well was before dialysis. ER evaluation demonstrates a trouble but confused male saturating 95% on room air, afebrile, and blood pressure elevated at 179/59. White blood cell count at 7:00 p.m., hemoglobin 8.4, platelet count 22 which are all around his baseline. INR 1.7. ABG demonstrating pH 7.53, pCO2 32.9, PO2 101.2 on room air, and bicarb 27.2. Apparently the patient does take Lasix. His serum creatinine is 4.04, BUN 25. Blood glucose 120, ammonia level 131 which is higher than his baseline of 49-90. Serum alcohol level negative. Head CT with no acute findings despite motion artifact limiting evaluation, chest x-ray demonstrating moderate pulmonary venous congestion. Neurology and Nephrology were consulted. Patient was given lactulose 20 g p.o. x1, placed on normal saline at 125 cc/hour. Review of Systems Review of Systems: All systems reviewed & are unremarkable except as noted in HPI and below (Subjective) [facility] Past Medical History Medical History Esophageal varices in alcoholic cirrhosis Facial hematoma Pancytopenia Seizure Cirrhosis, alcoholic Acute respiratory failure Cirrhosis Renal osteodystrophy Erythropoietin deficiency anemia Thrombocytopenia Coagulopathy Encephalopathy, hepatic Alcoholic liver failure ESRD needing dialysis Surgical History Surgical History H/O cataract removal with insertion of prosthetic lens History of vasectomy Status post biopsy of kidney Family History Family History Father Colon cancer Dementia Mother Aneurysm Social History Social History Social History: Caffeine-tea Smoking packs per day: 2.5 Smoking cigarettes per day: 50.0 Years smoked: 43 Smoking pack-years: 107.50 Smoking status: Current every day smoker Tobacco type: cigarettes Alcohol intake: former Alcohol use details: none since04/11/21 Substance use: current Substance use type: marijuana Other substance usage details: gummies Do You Feel Safe in your Home?: Yes Lack of Transportation: No Lack of Food: Never True Current Housing: I Have Housing Concerned About Future Housing: No Difficulty Paying Gas/Electric Bills: No Difficulty Paying for Meds: No Currently Unemployed: No Education: Master's Degree or Higher Difficulty w/ Childcare or Family Care: No Spiritual care concerns: No Meds Home Medications and Allergies Home Medications ?Medication ?Instructions ?Recorded ?Confirmed ?Type melatonin 3 mg tablet 3 mg PO HS Sleep 03/27/24 05/02/25 History levetiracetam 750 mg tablet 750 mg PO Q12H 30 days #60 tabs 08/21/24 05/02/25 Rx nadolol 20 mg tablet See Rx Instructions .Route 09/02/24 05/02/25 Rx .COMPLEX #90 tabs amlodipine 5 mg tablet 5 mg PO DAILY 10/13/24 05/02/25 History folic acid 1 mg tablet 1 mg PO DAILY 10/13/24 05/02/25 History sevelamer carbonate 800 mg tablet 800 mg PO .COMPLEX 10/13/24 05/02/25 History lactulose 10 gram/15 mL oral 40 g (60 mL) PO TID #3,000 mL 12/02/24 05/02/25 Rx solution furosemide 80 mg tablet See Rx Instructions .Route 02/23/25 05/02/25 Rx .COMPLEX #180 tabs hydralazine 25 mg tablet See Rx Instructions .Route 03/23/25 05/02/25 Rx .COMPLEX #270 tabs omeprazole 40 mg capsule,delayed 40 mg PO DAILY 05/02/25 05/02/25 History release Allergies Allergy/AdvReac Type Severity Reaction Status Date / Time No Known Allergies Allergy Unknown Verified 05/02/25 21:13 Vital Signs Vital Signs - 24 hr 05/02/25 15:20 05/02/25 15:30 05/02/25 19:48 Temperature 98.2 F Pulse Rate 60 57 L Respiratory Rate 16 12 Blood Pressure 198/72 H 188/71 H Pulse Oximetry 100 99 Oxygen Delivery Room Air Room Air Fraction of Inspired Oxygen 05/02/25 21:06 05/02/25 21:16 Temperature 97.6 F Pulse Rate 57 L 57 L Respiratory Rate 16 20 Blood Pressure 179/59 H Pulse Oximetry 100 95 Oxygen Delivery Room Air Fraction of Inspired Oxygen 21 Exam Const: General: comfortable and no acute distress Other: Pleasantly confused HENMT: Mouth: Yes moist mucous membranes Eyes: Pupils: Equal, round and reactive pupils present Neck: Neck: supple Resp: Effort & Inspection: normal respiratory effort Auscultation: clear to auscultation bilaterally Cardio: Rate: regular rate Rhythm: regular rhythm Heart sounds: Murmur heart sound present GI: Inspection: non-distended GI Palp: Yes Soft to palpation and No Tenderness to palpation present (GI) : General: Yes bladder normal to palpation Neuro: Motor exam (neuro): 5/5 motor strength present throughout Extrem: General: no edema H&P: Results Labs Labs: Short CBC 05/02/25 Range/Units 17:37 WBC 1.9 L* (4.5-10.0) K/mm3 Hgb 8.4 L (14.0-18.0) g/dL Hct 25.2 L (42.0-52.0) % Plt Count 22 L* (150-375) k/mm3 BMP 05/02/25 17:30 Sodium 136 L Potassium 3.9 Chloride 98 Carbon Dioxide 31 H BUN 25 H D Creatinine 4.04 H Glucose 120 H Calcium 7.7 L Liver Function 05/02/25 Range/Units 17:30 Total Bilirubin 1.5 H (0.2-1.3) mg/dL AST 20 (17-59) U/L ALT 15 (6-50) U/L Alkaline Phosphatase 137 H (38-126) U/L Albumin 3.6 (3.5-5.1) g/dL Assessment and Plan Assessment and plan (1) Encephalopathy, hepatic: Code(s): K72.90 - Hepatic failure, unspecified without coma Status: Acute (2) Cirrhosis, alcoholic: Qualifiers: Ascites presence: without ascites Qualified Code(s): K70.30 - Alcoholic cirrhosis of liver without ascites Code(s): K70.30 - Alcoholic cirrhosis of liver without ascites Status: Acute (3) ESRD needing dialysis: Code(s): N18.6 - End stage renal disease; Z99.2 - Dependence on renal dialysis Status: Chronic (4) Pancytopenia: Code(s): D61.818 - Other pancytopenia Status: Acute Plan 59-year-old male with history of alcohol use disorder, chronic pancytopenia, ESRD on dialysis, cirrhosis, seizure disorder, holosystolic murmur, chronic intermittent hepatic encephalopathy. He reports to [facility] ER on 05/02/2025 from dialysis as he was reported to be confused. He has a chronic history of becoming confused after dialysis. The patient is a poor historian, he answers nonsensically. Many of his medications have not been refilled in 3-5 months however he reports taking them. Reportedly he lives at home alone. His last known well was before dialysis. ER evaluation demonstrates a comfortable but confused male saturating 95% on room air, afebrile, and blood pressure elevated at 179/59. White blood cell count at 7:00 p.m., hemoglobin 8.4, platelet count 22 which are all around his baseline. INR 1.7. ABG demonstrating pH 7.53, pCO2 32.9, PO2 101.2 on room air, and bicarb 27.2. Apparently the patient does take Lasix. His serum creatinine is 4.04, BUN 25. Blood glucose 120, ammonia level 131 which is higher than his baseline of 49-90. Serum alcohol level negative. Head CT with no acute findings despite motion artifact limiting evaluation, chest x-ray demonstrating moderate pulmonary venous congestion. Neurology and Nephrology were consulted. Patient was given lactulose 20 g p.o. x1, placed on normal saline at 125 cc/hour. ----- This presentation is similar to prior and is most likely due to hepatic encephalopathy. As described above, it is impossible to know which meds he has been taking at home. He was able to confirm some medications with the nurse however again this is unreliable. His blood pressure is elevated and we will continue amlodipine 5 mg p.o. q.day, we will hold nadolol due to sinus bradycardia, hydralazine 25 mg p.o. t.i.d.. Continue with lactulose 30 g p.o. t.i.d. and titrate for 2-3 loose bowel movements per day. Trend ammonia level. Discontinue fluids. Nephrology to determine dialysis needs. Holding SPECIAL EDUCATION AIDE furosemide, since patient has dialysis we should consider discontinuing Lasix in the setting of hyperammonemia. Has evidence of metabolic alkalosis which could be causing hyperammonemia. Defer to Nephrology for further discussion. Continue Keppra 750 mg p.o. q.12 hours. Neurology to see. Continue folic acid and thiamine. Patient reports no alcohol use or drug use. Nursing reports they have found marijuana gummies on his person. Those were confiscated. Drug urine screen is pending along with urinalysis. ----- Patient wishes to be full code. Follow-up precautions with ambulation assistance. Continue SPECIAL EDUCATION AIDE PPI. Heart healthy diet. Admission to IMU, continue telemetry. Hospitalist [facility] Advance Care Plan I have confirmed that the patient's Advanced Care Plan is present, code status is documented, or surrogate decision maker is listed in patient medical record.: Yes Medication Reconciliation I have utilized all available resources to obtain, update and review the patients current medications (includes all prescriptions, OTC, herbals, cannabis, and nutritional supplements).: Yes
[2025-05-02 22:00] VITALS: PULSE 54
[2025-05-02 22:48] LABS: MRSA (PCR) NOT DETECTED (NOT DETECTE)
[2025-05-03] VITALS (12 sets, daily range): BP systolic 145–192; BP diastolic 37–69; PULSE 52–63; RESP 14–16; TEMP 36.3–37.4; O2SAT 98–100
--- NOTE | 2025-05-03 00:50 | PC.NURSE ---
Daylight Savings Time For Daylight Savings Time Ending in the Fall - Clocks are moved back. For Daylight Savings Time Beginning in the Spring - Clocks are moved ahead. For [facility], the time of change occurs at 0200 hrs. Time is taken from the wrapper and preserver. This entry on the patient's chart recognizes the change in time reflected during documentation. Example: 2 entries for vital signs may be charted for 0200 hrs.
[2025-05-03 04:13] LABS: Hematocrit 25.1 % (42.0-52.0); Hemoglobin 8.2 g/dL (14.0-18.0); Immature Granulocyte Percent A 0.5 % (0-0.5); Immature Platelet Fraction Pct 4.4 % (0.9-11.2); Lymphocytes Absolute Auto 0.58 K/mm3 (0.9-3.2); Mean Corpuscular HGB Conc 32.7 g/dl (32-36); Mean Corpuscular Hemoglobin 32.9 pg (26-34); Mean Corpuscular Volume 100.8 fl (80-100); Nucleated Red Blood Cells Absolute Auto 0.000 K/mm3 (0.0-0.012); Nucleated Red Blood Cells Perc 0.0 % (0.0-0.2); Red Blood Count 2.49 M/mm3 (4.6-6.20); White Blood Count 2.0 K/mm3 (4.5-10.0)
[2025-05-03 04:49] LABS: Platelet Count Result 23 k/mm3 (150-375)
[2025-05-03 04:54] LABS: Anisocytosis 1+; Ovalocytes Occasional; Schistocytes None Seen
[2025-05-03 05:03] LABS: Ammonia 112 umol/L (9-30)
[2025-05-03 05:06] LABS: Alanine Aminotransferase 15 U/L (6-50); Albumin Level 3.5 g/dL (3.5-5.1); Alkaline Phosphatase 111 U/L (38-126); Anion Gap 6 mmol/L (4-12); Aspartate Amino Transferase 27 U/L (17-59); Bilirubin,Total 1.8 mg/dL (0.2-1.3); Blood Urea Nitrogen 30 mg/dL (9-20); Calcium 7.6 mg/dL (8.4-10.2); Carbon Dioxide 28 mmol/L (22-30); Chloride 98 mmol/L (98-107); Estimated CRCL calculation 16 ml/min; Estimated Glomerular Filt Rate 13; Glucose 99 mg/dL (65-110); Magnesium 2.2 mg/dL (1.6-2.3); Potassium 4.7 mmol/L (3.4-5.0); Sodium 132 mmol/L (137-145); Total Protein 6.3 g/dL (6.3-8.2)
[2025-05-03] MEDS: LACTULOSE 20 GM/30 ML UDC 30 GM PO ×3 (08:06→16:31)
[2025-05-03] MEDS: SEVELAMER CARBONATE 800 MG TABLET PO ×3 (08:06→16:31)
[2025-05-03] MEDS: THIAMINE HCL 100 MG TABLET PO (08:08)
[2025-05-03] MEDS: FOLIC ACID 1 MG TABLET PO (08:08)
[2025-05-03] MEDS: PANTOPRAZOLE SODIUM IV 40 MG VIAL IV PUSH (08:09)
--- NOTE | 2025-05-03 09:34 | P.PNIM_ITS ---
Progress Note: A&P Assessment and Plan (1) Encephalopathy, hepatic: Code(s): K72.90 - Hepatic failure, unspecified without coma Status: Acute Assessment and Plan: * Elevated ammonia and likely medication noncompliance support hepatic encephalopathy * Wernicke encephalopathy is also a concern, but less likely without other findings * Sudden onset, rapid improvement, and prior MRI brain suggesting atherosclerosi s elevate concern for stroke or TIA * Given chronic use of Keppra, partial seizure is also a concern * Given prior hx of AUD, current use of cannabis, check UDS * Cotinue home regimen, thiamine, folic acid * 05/03 MRI brain and carotid dopplers ordered (2) Cirrhosis, alcoholic: Qualifiers: Ascites presence: without ascites Qualified Code(s): K70.30 - Alcoholic cirrhosis of liver without ascites Code(s): K70.30 - Alcoholic cirrhosis of liver without ascites Status: Acute Assessment and Plan: * Reports abstaining from alcohol for over 2 years * Lab findings relatively stable from previously * Continue home regimen (3) ESRD needing dialysis: Code(s): N18.6 - End stage renal disease; Z99.2 - Dependence on renal dialysis Status: Chronic Assessment and Plan: * Nephrology consulted for dialysis (4) Pancytopenia: Code(s): D61.818 - Other pancytopenia Status: Acute Assessment and Plan: * Likely related to alcoholic cirrhosis * Labs relatively stable from previously (5) Mitral insufficiency and aortic stenosis: Code(s): I08.0 - Rheumatic disorders of both mitral and aortic valves Status: Acute Assessment and Plan: * mild, MAC with insufficiency * Denied cardiac issues * 05/03 Echo ordered Subjective Date/time seen: 05/03/25 09:34 Interval history: 59-year-old male with history of alcohol use disorder, chronic pancytopenia, ESRD on dialysis, cirrhosis, seizure disorder, holosystolic murmur, chronic intermittent hepatic encephalopathy. He reports to [facility] ER on 05/02/2025 from dialysis as he was reported to be confused. He has a chronic history of becoming confused after dialysis. The patient is a poor historian, he answers nonsensically. Many of his medications have not been refilled in 3-5 months however he reports taking them. Reportedly he lives at home alone. His last known well was before dialysis. 05/03 Word salad speech per RN earlier this AM. Ate most of his breakfast. Speaking better. Denied substance use other than occasional THC gummy, last use about 2 days prior to admission. He denied pain or sob. He remembers being in dialysis, then in the hospital, but nothing between those times. Review of Systems Review of Systems: All systems reviewed & are unremarkable except as noted in HPI and below Exam Narrative: HEENT: EOMI, PERRL, sclerae nonicteric, pharyngeal mucosa pink and intact NECK: No JVD, adenopathy, or thyromegaly, no carotid bruits CHEST: Clear to auscultation. Normal effort. HEART: NL S1/ S2, regular, 3/5 holosystolic murmur at apex radiating to axilla, soft JACOB RUSB w/o radiation ABDOMEN: BS+, soft, nontender, no mass, no bruits EXTREMITIES: No cyanosis, edema, or clubbing NEUROLOGIC: CN intact and symmetric to inspection, DTR's symmetric, Babinski's downgoing, no tremor MUSCULOSKELETAL: Tone and strength symmetric in UE's and LE's PSYCH: Alert. Oriented to person, place, and year, but not to month (August), speech slow but clear and coherent Objective Data Vital Signs Vital Signs: Vital Signs - 24 hr 05/02/25 15:20 05/02/25 15:30 05/02/25 19:48 Temperature 98.2 F Pulse Rate 60 57 L Respiratory Rate 16 12 Blood Pressure 198/72 H 188/71 H Pulse Oximetry 100 99 Oxygen Delivery Room Air Room Air Fraction of Inspired Oxygen 05/02/25 20:28 05/02/25 20:30 05/02/25 21:06 Temperature 97.6 F Pulse Rate 57 L 57 L Respiratory Rate 16 Blood Pressure 179/59 H Pulse Oximetry 100 Oxygen Delivery Room Air Fraction of Inspired Oxygen 05/02/25 21:16 05/02/25 22:00 05/03/25 00:00 Temperature 98.1 F Pulse Rate 57 L 54 L 57 L Respiratory Rate 20 14 Blood Pressure 179/69 H Pulse Oximetry 95 100 Oxygen Delivery Room Air Fraction of Inspired Oxygen 21 05/03/25 00:00 05/03/25 00:00 05/03/25 01:22 PANTS CUTTER Temperature Pulse Rate 54 L 54 L Respiratory Rate Blood Pressure Pulse Oximetry Oxygen Delivery Room Air Fraction of Inspired Oxygen 05/03/25 04:00 05/03/25 04:00 05/03/25 04:00 Temperature 97.8 F Pulse Rate 56 L 55 L Respiratory Rate 14 Blood Pressure 192/69 H Pulse Oximetry 100 Oxygen Delivery Room Air Fraction of Inspired Oxygen 05/03/25 05:55 05/03/25 08:00 05/03/25 08:00 Temperature 97.4 F L Pulse Rate 52 L 54 L 54 L Respiratory Rate 16 16 Blood Pressure 169/61 H Pulse Oximetry 99 99 Oxygen Delivery Room Air Fraction of Inspired Oxygen Intake/Output Intake/Output: Intake & Output 04/30/25 05/01/25 05/02/25 05/03/25 23:59 23:59 23:59 22:59 Intake Total 195.8 0 Output Total 0 Balance 195.8 0 Meds/Results Medications: Active Medications Generic Name Dose Route Start Last Admin Trade Name Freq PRN Reason Stop Dose Admin Amlodipine Besylate 5 mg 05/03/25 09:00 05/03/25 08:08 Amlodipine Besylate 5 Mg Tablet PO 5 mg DAILY DARWIN Administration Diazepam 5 mg 05/03/25 09:33 Diazepam Inj (*Crx) 10 Mg/2 Ml Syringe IV PUSH 05/03/25 09:34 ONCE ONE Folic Acid 1 mg 05/03/25 09:00 05/03/25 08:08 Folic Acid 1 Mg Tablet PO 1 mg DAILY DARWIN Administration Hydralazine HCl 25 mg 05/02/25 21:45 05/03/25 08:08 Hydralazine Hcl 25 Mg Tablet BY MOUTH 25 mg TIDWM DARWIN Administration Lactulose 30 gm 05/03/25 09:00 05/03/25 08:06 Lactulose 20 Gm/30 Ml Udc PO 30 gm TID DARWIN Administration Levetiracetam 750 mg 05/02/25 21:45 05/03/25 08:14 Levetiracetam 250 Mg Tablet PO 750 mg Q12HR DARWIN Administration Pantoprazole Sodium 40 mg 05/03/25 09:00 05/03/25 08:09 Pantoprazole Sodium Iv 40 Mg Vial IV PUSH 40 mg QAM DARWIN Administration Sevelamer Carbonate 800 - 1,600 mg 05/03/25 08:00 05/03/25 08:06 Sevelamer Carbonate 800 Mg Tablet PO 1,600 mg TIDWM DARWIN Administration Thiamine HCl 100 mg 05/03/25 09:00 05/03/25 08:08 Thiamine Hcl 100 Mg Tablet PO 100 mg QAM DARWIN Administration Radiology Results: ITS Impressions Chest X-Ray 05/02/25 16:01 Impression: CHF Head CT 05/02/25 16:17 Impression: 1. Motion artifact limits evaluation. No acute infarct or hemorrhage Labs Labs: Laboratory Results - last 24 hr 05/02/25 05/02/25 05/02/25 15:37 17:30 17:37 WBC 1.9 L* RBC 2.55 L Hgb 8.4 L Hct 25.2 L MCV 98.8 MCH 32.9 MCHC 33.3 RDW 14.4 Plt Count 22 L* MPV 11.2 H Immature Gran % (Auto) 0.5 Neut % (Auto) 55.1 Lymph % (Auto) 29.8 [place] % (Auto) 9.4 H Eos % (Auto) 4.2 Baso % (Auto) 1.0 Lymph # (Auto) 0.57 L [place] # (Auto) 0.2 Eos # (Auto) 0.1 Baso # (Auto) 0.0 Abs Immat Gran (auto) 0.01 Absolute Neuts (auto) 1.1 L Absolute Nucleated RBC 0.000 Band Neutrophils % Not Reportable Nucleated RBC % 0.0 Platelet Estimate Decreased % Immature Plt Fraction 4.9 Anisocytosis Ovalocytes Occasional Schistocytes None seen PT 19.8 H INR 1.7 APTT 36.0 Puncture Site Right radial ABG pH 7.535 H* ABG pCO2 32.9 L ABG pO2 101.2 H ABG PO2/FiO2 Ratio 4.82 ABG HCO3 27.2 H ABG O2 Saturation 98.2 ABG O2 Content 12.4 L ABG Base Excess 4.5 A-a Gradient 9.1 Oxyhemoglobin 96.2 Total Hemoglobin 9.0 L O2 Delivery Device Not Reportable O2 Liters/Min Not Reportable FiO2 21 Sodium 136 L Potassium 3.9 Chloride 98 Carbon Dioxide 31 H Anion Gap 7 BUN 25 H D Creatinine 4.04 H Estim Creat Clear Calc Not Reportable Estimated GFR 15 L Glucose 120 H POC Capillary Glucose Calcium 7.7 L Phosphorus 2.5 Magnesium 2.2 Total Bilirubin 1.5 H AST 20 ALT 15 Alkaline Phosphatase 137 H Ammonia 131 H Total Protein 6.4 Albumin 3.6 Nasal MRSA (PCR) Ethyl Alcohol < 10 11/01/25 11/01/25 11/02/25 20:37 21:29 04:04 WBC 2.0 L RBC 2.49 L Hgb 8.2 L Hct 25.1 L MCV 100.8 H MCH 32.9 MCHC 32.7 RDW 14.4 Plt Count 23 L* MPV 10.7 H Immature Gran % (Auto) 0.5 Neut % (Auto) 59.0 Lymph % (Auto) 29.7 [place] % (Auto) 7.7 Eos % (Auto) 2.6 Baso % (Auto) 0.5 Lymph # (Auto) 0.58 L [place] # (Auto) 0.2 Eos # (Auto) 0.1 Baso # (Auto) 0.0 Abs Immat Gran (auto) 0.01 Absolute Neuts (auto) 1.2 L Absolute Nucleated RBC 0.000 Band Neutrophils % Not Reportable Nucleated RBC % 0.0 Platelet Estimate Decreased % Immature Plt Fraction 4.4 Anisocytosis 1+ Ovalocytes Occasional Schistocytes None seen PT INR APTT Puncture Site ABG pH ABG pCO2 ABG pO2 ABG PO2/FiO2 Ratio ABG HCO3 ABG O2 Saturation ABG O2 Content ABG Base Excess A-a Gradient Oxyhemoglobin Total Hemoglobin O2 Delivery Device O2 Liters/Min FiO2 Sodium 132 L Potassium 4.7 Chloride 98 Carbon Dioxide 28 Anion Gap 6 BUN 30 H Creatinine 4.67 H Estim Creat Clear Calc 16 Estimated GFR 13 L Glucose 99 POC Capillary Glucose 115 H Calcium 7.6 L Phosphorus Magnesium 2.2 Total Bilirubin 1.8 H AST 27 ALT 15 Alkaline Phosphatase 111 Ammonia 112 H Total Protein 6.3 Albumin 3.5 Nasal MRSA (PCR) Not detected Ethyl Alcohol
--- NOTE | 2025-05-03 10:15 | PM.CNNEP ---
Assessment and Plan Assessment and plan (1) End stage renal disease: Code(s): N18.6 - End stage renal disease Status: Chronic Assessment and Plan: HD tomorrow (if remains hospitalized) continue outpatient schedule of Sun/Sun/Fridays while hospitalized follow electrolytes, volume status, and clearance (2) Altered mental status: Code(s): R41.82 - Altered mental status, unspecified Status: Acute Assessment and Plan: presumed due to hepatic encephalopathy: elevated ammonia levels on admission suspected medication non-compliance (with lactulose) however, cannot discount CVA/TIA also, known history of seizure disorder as well Neurology consulted MRI of brain and carotid dopplers ordered resumed on lactulose follow mentation (3) Cirrhosis: Code(s): K74.60 - Unspecified cirrhosis of liver Status: Acute Assessment and Plan: known history has been sober for the last 2 - 3 years continue lactulose (4) Hypertension: Code(s): I10 - Essential (primary) hypertension Status: Chronic Assessment and Plan: elevated at this time resume home medications follow trend of hemodynamics (5) Anemia: Code(s): D64.9 - Anemia, unspecified Status: Chronic Assessment and Plan: due to ESRD with contributions from liver disease Epogen with HD follow trend of H/H (6) Pancytopenia: Code(s): D61.818 - Other pancytopenia Status: Acute Assessment and Plan: somewhat of a chronic issue thought to be secondary to liver disease anemia further complicated by ESRD I will continue to follow the patient with you while he remains hospitalized and make further recommendations as deemed necessary. Thank you for allowing me to participate in the care of this patient. History of Present Illness Reason for Consult Consult date: 05/03/25 Reason for consult: end stage renal disease Chief Complaint Chief complaint: AMS, hyperammonia, pancytopenia(chronic),CKD, th History of Present Illness Narrative: The patient is a 59-year-old male with a past medical history as outlined below who presented to [facility] Emergency Room for altered mental status. Patient went to dialysis yesterday as his scheduled treatment time and as far as I am aware was at his baseline mentation. however, upon completion of his full dialysis treatment, the patient was not responding appropriately to questions and was unable to follow commands. Given this significant change in his mentation, EMS was called and he was subsequently transported to the emergency room for further assessment. Workup and evaluation emergency room demonstrated the patient to be confused but otherwise hemodynamically stable (if not a bit hypertensive), afebrile, and with stable oxygen saturations. Routine blood work demonstrated a white blood cell count of 1.9, hemoglobin 8.4, hematocrit 25.2, and a platelet count of 22 (stable chronic pancytopenia), sodium 136, potassium 3.9, bicarb 31, BUN 25, creatinine 4.04, glucose 120, calcium 7.7, phosphorus 2.5, magnesium 2.2, normal LFTs with the exception of a elevated total bilirubin of 1.5 and alkaline phosphatase of 137, ammonia 131, albumin 3.6, and alcohol level less than 10. His ABG showed a pH of 7.53, pCO2 of 32.9, PO2 of 101.2 on room air. His chest x-ray showed moderate pulmonary venous congestion and cardiomegaly but no infiltrates or pneumothorax and CT scan of his head was without any acute infarct or hemorrhage although there was motion artifact that limited full evaluation. The assumption was that his altered mentation was secondary to his elevated ammonia levels and associated hepatic encephalopathy given his known history of liver disease although he does have also have a history of seizure disorder which could not be fully ruled out either. Given her his constellation of symptoms and his imaging and laboratory findings, Neurology was consulted and he was admitted to the hospital for further evaluation and therapy. Since his admission, his mentation has somewhat improved with some confusion earlier this morning according to his nurse. On further questioning, he recalls being in dialysis yesterday but does not recall his transfer to the hospital, ER evaluation, or events leading up to his current situation/status. Renal consultation was requested due to his end-stage renal disease. The patient dialyzes on a Sunday, Sunday, Sunday dialysis schedule at [facility] under the care of Dr. Bashir Norris. From a dialysis perspective, he has been doing reasonably well with relative stability in his monthly labs and volume status. Due to his work schedule, he sometimes has to reschedule his dialysis treatments which was the reason why he was getting his treatment yesterday, Sunday, as he was unable to get to his treatment on Sunday. Aside from the fact of his altered mentation post dialysis treatment, his dialysis treatment yesterday was otherwise uneventful. Currently, at the time my evaluation, the patient appears to be doing reasonably well and is in no acute distress with improved mentation. Review of Systems Review of Systems: As per HPI. [facility] Past Medical History Medical History Mitral insufficiency and aortic stenosis Esophageal varices in alcoholic cirrhosis Facial hematoma Pancytopenia Seizure Cirrhosis, alcoholic Acute respiratory failure Cirrhosis Renal osteodystrophy Erythropoietin deficiency anemia Thrombocytopenia Coagulopathy Encephalopathy, hepatic Alcoholic liver failure ESRD needing dialysis Surgical History Surgical History H/O cataract removal with insertion of prosthetic lens History of vasectomy Status post biopsy of kidney Family History Family History Father Colon cancer Dementia Mother Aneurysm Social History Social History Social History: Caffeine-tea Smoking packs per day: 2.5 Smoking cigarettes per day: 50.0 Years smoked: 43 Smoking pack-years: 107.50 Smoking status: Current every day smoker Tobacco type: cigarettes Alcohol intake: former Alcohol use details: none since04/11/21 Substance use: current Substance use type: marijuana Other substance usage details: gummies Do You Feel Safe in your Home?: Yes Lack of Transportation: No Lack of Food: Never True Current Housing: I Have Housing Concerned About Future Housing: No Difficulty Paying Gas/Electric Bills: No Difficulty Paying for Meds: No Currently Unemployed: No Education: Master's Degree or Higher Difficulty w/ Childcare or Family Care: No Spiritual care concerns: No Meds Home Medications and Allergies Home Medications ?Medication ?Instructions ?Recorded ?Confirmed ?Type melatonin 3 mg tablet 3 mg PO HS Sleep 03/27/24 05/02/25 History levetiracetam 750 mg tablet 750 mg PO Q12H 30 days #60 tabs 08/21/24 05/02/25 Rx nadolol 20 mg tablet See Rx Instructions .Route 09/02/24 05/02/25 Rx .COMPLEX #90 tabs amlodipine 5 mg tablet 5 mg PO DAILY 10/13/24 05/02/25 History folic acid 1 mg tablet 1 mg PO DAILY 10/13/24 05/02/25 History sevelamer carbonate 800 mg tablet 800 mg PO .COMPLEX 10/13/24 05/02/25 History lactulose 10 gram/15 mL oral 40 g (60 mL) PO TID #3,000 mL 12/02/24 05/02/25 Rx solution furosemide 80 mg tablet See Rx Instructions .Route 02/23/25 05/02/25 Rx .COMPLEX #180 tabs hydralazine 25 mg tablet See Rx Instructions .Route 03/23/25 05/02/25 Rx .COMPLEX #270 tabs omeprazole 40 mg capsule,delayed 40 mg PO DAILY 05/02/25 05/02/25 History release Allergies Allergy/AdvReac Type Severity Reaction Status Date / Time No Known Allergies Allergy Unknown Verified 05/02/25 21:13 Vital Signs Vital Signs Temp Pulse Resp BP Pulse Ox O2 Del Method FiO2 05/03/25 10:00 59 L 05/03/25 08:00 53 L 05/03/25 08:00 54 L 16 99 Room Air 05/03/25 08:00 97.4 F L 54 L 16 169/61 H 99 05/03/25 05:55 52 L 05/03/25 04:00 55 L 05/03/25 04:00 Room Air 05/03/25 04:00 97.8 F 56 L 14 192/69 H 100 05/03/25 01:22 [employer] 54 L 05/03/25 00:00 54 L 05/03/25 00:00 Room Air 05/03/25 00:00 98.1 F 57 L 14 179/69 H 100 05/02/25 22:00 54 L 05/02/25 21:16 57 L 20 95 Room Air 21 05/02/25 21:06 97.6 F 57 L 16 179/59 H 100 05/02/25 20:30 Room Air 05/02/25 20:28 57 L 05/02/25 19:48 57 L 12 188/71 H 99 Exam Narrative: GENERAL APPEARANCE: well developed well nourished male in no acute distress HEENT: normocephalic, atraumatic, normal conjunctiva and sclera, nares patient NECK: no lymphadenopathy, thyromegaly, or JVD MOUTH: normal lips, teeth, and gums CARDIOVASCULAR: RRR, normal S1 and S2, no rub RESPIRATORY: clear anteriorly ABDOMEN: soft, nontender, nondistended, positive bowel sounds present EXTREMITIES: no evidence of cyanosis, clubbing, or edema NEUROLOGICAL: awake and alert; answering questions appropriately; no focal deficits noted Results Lab Results 05/03/25 04:04 05/03/25 04:04 Lab results: Most recent lab results ABG pH 7.535 (7.350-7.450) H* 05/02/25 15:37 ABG pCO2 32.9 mmHg (35.0-45.0) L 05/02/25 15:37 ABG pO2 101.2 mmHg (80.0-100.0) H 05/02/25 15:37 ABG HCO3 27.2 mEq/l (22.0-26.0) H 05/02/25 15:37 ABG O2 Saturation 98.2 % (95.0-100.0) 05/02/25 15:37 Calcium 7.6 mg/dL (8.4-10.2) L 05/03/25 04:04 Phosphorus 2.5 mg/dL (2.5-4.5) 05/02/25 17:30 Magnesium 2.2 mg/dL (1.6-2.3) 05/03/25 04:04
[2025-05-03 10:49] LABS: Add Urine Microscopic? YES; Appearance Urine Clear (Clear); Glucose Urine UA Negative (Negative); Leukocyte Esterase Ur Negative LEU/UL (Negative); Need Manual Microscopic Reviewed; Nitrate Urine Negative (Negative); Non Pathogenic Casts 0-2; Specific Grav Ur 1.008 (1.001-1.035)
[2025-05-03 11:01] LABS: Cannabinoid Screen Urine Positive (Negative)
--- NOTE | 2025-05-03 12:38 | WPDNEURCNPN ---
Assessment and Plan Assessment and plan (1) Seizure disorder: Code(s): G40.909 - Epilepsy, unspecified, not intractable, without status epilepticus Status: Acute Plan 1. Recurrence of the seizure, been started on Keppra 750mg q.12 hours and will be continued as such 2. Ongoing history of chronic renal disease renal dialysis dependent. And other diagnoses as such. Plan is to continue the treatment as such Consult date: 05/03/25 HPI: Jj Cuello is a 59 year old maleAdmitted to the hospital through the emergency room with the complaints of change in the mental status subsequent to dialysis. Patient received full session of dialysis today but he does have ongoing history of seizures, hypertension, and last known well was prior to dialysis sometime in the morning. His medications included melatonin 3mg at night, amlodipine 5mg daily, folic acid 1mg daily, carbonate 800mg daily, he is not allergic to any medication, in the past he has ongoing history of 1. Alcoholic cirrhosis 2. Seizures 3. Renal osteodystrophy 4. 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 Ongoing end-stage renal disease for which he is on dialysis 6. History of cataract extraction 7. Never smoker 8. Former alcohol intake. Exam in the emergency room was documented him to be ill appearing poorly nourished but no acute distress and he was unable to follow the verbal commands. His vital signs was blood pressure 198/72, CBC with WBC only 1.9 and platelet count [id number] also hemoglobin only 8.4, BUN 25 creatinine 4.04 blood sugar 120, his creatinine 4.04, initial chest x-ray with congestive heart failure, initial CT scan of the head with no bleed, he has been continued on amlodipine 5mg daily, hydralazine 25mg 3 times a day, lactulose 30g t.i.d., thiamine 100mg daily, and levetiracetam 750mg q.12 hours has been added. Initial CT scan of the head was negative for the bleed. His last MRI was in September with white matter lesions on the basis of a chronic microvascular ischemic disease and last head and neck CTA was in August of 2024 with no abnormalities. Review of Systems Review of Systems: All systems reviewed & are unremarkable except as noted in HPI and below PMFSH Past Medical History Medical History Mitral insufficiency and aortic stenosis Esophageal varices in alcoholic cirrhosis Facial hematoma Pancytopenia Seizure Cirrhosis, alcoholic Acute respiratory failure Cirrhosis Renal osteodystrophy Erythropoietin deficiency anemia Thrombocytopenia Coagulopathy Encephalopathy, hepatic Alcoholic liver failure ESRD needing dialysis Surgical History Surgical History H/O cataract removal with insertion of prosthetic lens History of vasectomy Status post biopsy of kidney Family History Family History Father Colon cancer Dementia Mother Aneurysm Social History Social History Social History: Caffeine-tea Smoking packs per day: 2.5 Smoking cigarettes per day: 50.0 Years smoked: 43 Smoking pack-years: 107.50 Smoking status: Current every day smoker Tobacco type: cigarettes Alcohol intake: former Alcohol use details: none since04/11/21 Substance use: current Substance use type: marijuana Other substance usage details: gummies Do You Feel Safe in your Home?: Yes Lack of Transportation: No Lack of Food: Never True Current Housing: I Have Housing Concerned About Future Housing: No Difficulty Paying Gas/Electric Bills: No Difficulty Paying for Meds: No Currently Unemployed: No Education: Master's Degree or Higher Difficulty w/ Childcare or Family Care: No Spiritual care concerns: No Meds Home Medications and Allergies Home Medications ?Medication ?Instructions ?Recorded ?Confirmed ?Type melatonin 3 mg tablet 3 mg PO HS Sleep 03/27/24 05/02/25 History levetiracetam 750 mg tablet 750 mg PO Q12H 30 days #60 tabs 08/21/24 05/02/25 Rx nadolol 20 mg tablet See Rx Instructions .Route 09/02/24 05/02/25 Rx .COMPLEX #90 tabs amlodipine 5 mg tablet 5 mg PO DAILY 10/13/24 05/02/25 History folic acid 1 mg tablet 1 mg PO DAILY 10/13/24 05/02/25 History sevelamer carbonate 800 mg tablet 800 mg PO .COMPLEX 10/13/24 05/02/25 History lactulose 10 gram/15 mL oral 40 g (60 mL) PO TID #3,000 mL 12/02/24 05/02/25 Rx solution furosemide 80 mg tablet See Rx Instructions .Route 02/23/25 05/02/25 Rx .COMPLEX #180 tabs hydralazine 25 mg tablet See Rx Instructions .Route 03/23/25 05/02/25 Rx .COMPLEX #270 tabs omeprazole 40 mg capsule,delayed 40 mg PO DAILY 05/02/25 05/02/25 History release Allergies Allergy/AdvReac Type Severity Reaction Status Date / Time No Known Allergies Allergy Unknown Verified 05/02/25 21:13 Vital Signs Vital Signs - 24 hr 05/02/25 15:20 05/02/25 15:30 05/02/25 19:48 Temperature 36.8 C Pulse Rate 60 57 L Respiratory Rate 16 12 Blood Pressure 198/72 H 188/71 H Pulse Oximetry 100 99 Oxygen Delivery Room Air Room Air Fraction of Inspired Oxygen 05/02/25 20:28 05/02/25 20:30 05/02/25 21:06 Temperature 36.4 C Pulse Rate 57 L 57 L Respiratory Rate 16 Blood Pressure 179/59 H Pulse Oximetry 100 Oxygen Delivery Room Air Fraction of Inspired Oxygen 05/02/25 21:16 05/02/25 22:00 05/03/25 00:00 Temperature 36.7 C Pulse Rate 57 L 54 L 57 L Respiratory Rate 20 14 Blood Pressure 179/69 H Pulse Oximetry 95 100 Oxygen Delivery Room Air Fraction of Inspired Oxygen 05/03/25 00:00 05/03/25 00:00 05/03/25 01:22 [employer] Temperature Pulse Rate 54 L 54 L Respiratory Rate Blood Pressure Pulse Oximetry Oxygen Delivery Room Air Fraction of Inspired Oxygen 05/03/25 04:00 05/03/25 04:00 05/03/25 04:00 Temperature 36.6 C Pulse Rate 56 L 55 L Respiratory Rate 14 Blood Pressure 192/69 H Pulse Oximetry 100 Oxygen Delivery Room Air Fraction of Inspired Oxygen 05/03/25 05:55 05/03/25 08:00 05/03/25 08:00 Temperature 36.3 C L Pulse Rate 52 L 54 L 54 L Respiratory Rate 16 16 Blood Pressure 169/61 H Pulse Oximetry 99 99 Oxygen Delivery Room Air Fraction of Inspired Oxygen 05/03/25 08:00 05/03/25 10:00 05/03/25 12:00 Temperature Pulse Rate 53 L 59 L 59 L Respiratory Rate 16 Blood Pressure Pulse Oximetry 99 Oxygen Delivery Room Air Fraction of Inspired Oxygen 05/03/25 12:00 Temperature Pulse Rate 62 Respiratory Rate Blood Pressure Pulse Oximetry Oxygen Delivery Fraction of Inspired Oxygen Exam Narrative: Exam revealed him to be awake alert cooperative in no obvious acute distress at this particular time, his speech not dysphasic not dysarthric not dysphonic, head normocephalic with no bruit, neck supple with no meningeal signs, no cervical bruit no thyromegaly no lymphadenopathy, heart regular with murmur, lungs without rhonchi or crepitations, abdomen nontender, neurologically he is awake alert oriented being in the hospital and being aware of that he has ongoing diagnosis of seizure disorder, his speech not dysphasic not dysarthric not dysphonic, pupils round regular reactive to light equally, extraocular movements are full with intact field of vision in all 4 quadrants, and with no nystagmus, facial sensation intact and symmetrical, tongue in the oral cavity with no fasciculation, uvula in the midline, motor examination revealed him to have fairly symmetrical strength in upper and lower extremities proximally and distally with sluggish reflexes and downgoing plantar responses. No evidence of gross cerebellar deficit. Results Labs 05/03/25 04:04 05/03/25 04:04 Labs: Short CBC 05/02/25 05/03/25 Range/Units 17:37 04:04 WBC 1.9 L* 2.0 L (4.5-10.0) K/mm3 Hgb 8.4 L 8.2 L (14.0-18.0) g/dL Hct 25.2 L 25.1 L (42.0-52.0) % Plt Count 22 L* 23 L* (150-375) k/mm3 BMP 05/02/25 05/03/25 17:30 04:04 Sodium 136 L 132 L Potassium 3.9 4.7 Chloride 98 98 Carbon Dioxide 31 H 28 BUN 25 H D 30 H Creatinine 4.04 H 4.67 H Glucose 120 H 99 Calcium 7.7 L 7.6 L Liver Function 05/02/25 05/03/25 Range/Units 17:30 04:04 Total Bilirubin 1.5 H 1.8 H (0.2-1.3) mg/dL AST 20 27 (17-59) U/L ALT 15 15 (6-50) U/L Alkaline Phosphatase 137 H 111 (38-126) U/L Albumin 3.6 3.5 (3.5-5.1) g/dL Urine 05/03/25 Range/Units 10:31 Urine Color Yellow (Yellow) Urine Appearance Clear (Clear) Urine pH >=9.0 H (5.0-9.0) Ur Specific [place] 1.008 (1.001-1.035) Urine Protein 2+ H (Negative) mg/dL Urine Glucose (UA) Negative (Negative) mg/dL
[2025-05-04] VITALS (31 sets, daily range): BP systolic 154–205; BP diastolic 52–98; PULSE 57–79; RESP 14–18; TEMP 36.7–37.4; O2SAT 96–99
[2025-05-04 04:30] LABS: Hematocrit 26.2 % (42.0-52.0); Hemoglobin 8.6 g/dL (14.0-18.0); Immature Granulocyte Percent A 0.0 % (0-0.5); Immature Platelet Fraction Pct 3.3 % (0.9-11.2); Lymphocytes Absolute Auto 0.62 K/mm3 (0.9-3.2); Mean Corpuscular HGB Conc 32.8 g/dl (32-36); Mean Corpuscular Hemoglobin 33.2 pg (26-34); Mean Corpuscular Volume 101.2 fl (80-100); Nucleated Red Blood Cells Absolute Auto 0.000 K/mm3 (0.0-0.012); Nucleated Red Blood Cells Perc 0.0 % (0.0-0.2); Platelet Count Result 26 k/mm3 (150-375); Red Blood Count 2.59 M/mm3 (4.6-6.20); White Blood Count 2.2 K/mm3 (4.5-10.0)
[2025-05-04 04:31] LABS: Ammonia 148 umol/L (9-30)
[2025-05-04 04:38] LABS: INR 1.9; Prothrombin Time 21.0 Seconds (11.1-14.7)
[2025-05-04 04:44] LABS: Alanine Aminotransferase 17 U/L (6-50); Albumin Level 3.4 g/dL (3.5-5.1); Alkaline Phosphatase 103 U/L (38-126); Anion Gap 10 mmol/L (4-12); Aspartate Amino Transferase 23 U/L (17-59); Bilirubin,Total 2.0 mg/dL (0.2-1.3); Blood Urea Nitrogen 37 mg/dL (9-20); Calcium 7.8 mg/dL (8.4-10.2); Carbon Dioxide 28 mmol/L (22-30); Chloride 98 mmol/L (98-107); Estimated CRCL calculation 11 ml/min; Estimated Glomerular Filt Rate 8; Glucose 107 mg/dL (65-110); Potassium 4.6 mmol/L (3.4-5.0); Sodium 136 mmol/L (137-145); Total Protein 6.1 g/dL (6.3-8.2)
[2025-05-04 05:12] LABS: Hepatitis B Surface Antigen Negative (Negative)
[2025-05-04 05:35] LABS: Hepatitis B Surface Anti Res Positive
--- NOTE | 2025-05-04 10:10 | P.PNNP_ITS ---
Progress Note: A&P Assessment and Plan (1) End stage renal disease: Code(s): N18.6 - End stage renal disease Status: Chronic Assessment and Plan: * HD today * continue outpatient schedule of Sun/Sun/Fridays while hospitalized * follow electrolytes, volume status, and clearance (2) Altered mental status: Code(s): R41.82 - Altered mental status, unspecified Status: Acute Assessment and Plan: * presumed due to hepatic encephalopathy: * elevated ammonia levels on admission * suspected medication non-compliance (with lactulose) * however, cannot discount CVA/TIA * also, known history of seizure disorder as well * Neurology consulted * MRI of brain and carotid dopplers ordered * resumed on lactulose * follow mentation (3) Cirrhosis: Code(s): K74.60 - Unspecified cirrhosis of liver Status: Acute Assessment and Plan: * known history * has been sober for the last 2 - 3 years * continue lactulose (4) Hypertension: Code(s): I10 - Essential (primary) hypertension Status: Chronic Assessment and Plan: * elevated at this time * resume home medications * fluid removal with dialysis may help * follow trend of hemodynamics (5) Anemia: Code(s): D64.9 - Anemia, unspecified Status: Chronic Assessment and Plan: * due to ESRD with contributions from liver disease * Epogen with HD * follow trend of H/H (6) Pancytopenia: Code(s): D61.818 - Other pancytopenia Status: Acute Assessment and Plan: * somewhat of a chronic issue * thought to be secondary to liver disease * anemia further complicated by ESRD Will continue to follow. L Subjective Date/time seen: 05/04/25 10:10 Interval history: Follow-up for end stage renal disease on hemodialysis. Tolerating dialysis treatment at the time of my visit (seen on HD at 09:50AM); resting comfortably when seen; no apparent distress noted; no issues/events overnight or earlier this morning. Exam 2 Narrative: General: WD/WN male in NAD Heart: normal S1 and S2; no rub Lungs: clear anteriorly Abdomen: soft, nontender, nondistended, positive bowel sounds Extremities: no cyanosis or clubbing; no edema Skin: warm and dry Objective Data Vital Signs Vital Signs: Vital Signs Temp Pulse Resp BP Pulse Ox O2 Del Method 05/04/25 10:00 60 188/88 H 05/04/25 09:45 57 L 205/52 H 05/04/25 09:30 57 L 201/83 H 05/04/25 09:15 57 L 189/83 H 05/04/25 09:00 57 L 191/98 H 05/04/25 08:46 98.2 F 57 L 18 157/89 H 99 05/04/25 07:53 98.1 F 59 L 14 160/67 H 99 05/04/25 06:00 59 L 05/04/25 04:00 58 L 05/04/25 04:00 99.0 F 60 14 166/57 H 99 05/04/25 04:00 Room Air 05/04/25 02:00 59 L 05/04/25 00:00 66 05/04/25 00:00 Room Air 05/04/25 00:00 98.3 F 62 16 175/66 H 99 05/03/25 22:00 61 05/03/25 20:00 60 05/03/25 20:00 Room Air 05/03/25 20:00 99.3 F 63 14 155/37 H 99 05/03/25 18:00 60 05/03/25 16:00 99.0 F 62 16 147/59 H 98 05/03/25 16:00 59 L 05/03/25 16:00 62 16 98 Room Air 05/03/25 14:00 59 L 05/03/25 12:00 98.7 F 56 L 16 145/57 H 99 05/03/25 12:00 62 05/03/25 12:00 59 L 16 99 Room Air Intake/Output Intake/Output: Intake & Output 05/01/25 05/02/25 05/03/25 05/04/25 23:59 23:59 22:59 23:59 Intake Total 195.8 630 100 Output Total 230 0 Balance 195.8 400 100 Meds/Results Medications: Active Medications Generic Name Dose Route Start Last Admin Trade Name Freq PRN Reason Stop Dose Admin Amlodipine Besylate 5 mg 05/03/25 09:00 05/03/25 08:08 Amlodipine Besylate 5 Mg Tablet PO 5 mg DAILY DARWIN Administration Epoetin Nasir-epbx 10,000 units 05/04/25 19:00 05/04/25 10:24 Epoetin Nasir-Epbx 10,000 Units/Ml Vial IV PUSH 05/04/25 19:01 10,000 units ONCE ONE Administration Folic Acid 1 mg 05/03/25 09:00 05/03/25 08:08 Folic Acid 1 Mg Tablet PO 1 mg DAILY DARWIN Administration Hydralazine HCl 25 mg 05/02/25 21:45 05/04/25 11:05 Hydralazine Hcl 25 Mg Tablet BY MOUTH 25 mg TIDWM DARWIN Administration Albumin Human 50 mls @ 999 mls/hr 05/03/25 15:31 Albutein IVPB 06/02/25 15:30 Q10M PRN HYPOTENSION Lactulose 30 gm 05/03/25 09:00 05/03/25 16:31 Lactulose 20 Gm/30 Ml Udc PO 30 gm TID DARWIN Administration Levetiracetam 750 mg 05/02/25 21:45 05/04/25 11:06 Levetiracetam 250 Mg Tablet PO 750 mg Q12HR DARWIN Administration Lidocaine/Prilocaine 1 each 05/03/25 15:32 Lidocaine/Prilocaine Cream 2.5-2.5% Tube TOPICAL WITH DIALYSIS PRN for dialysis Protocol Pantoprazole Sodium 40 mg 05/04/25 09:00 Pantoprazole 40 Mg Tablet PO QAM DARWIN Perflutren Lipid Microsphere 0 ml 05/03/25 09:55 Perflutren Lipid Microspheres 1.5 Ml Vial Diluted To 10 Ml Total Volume IV PUSH 05/06/25 09:56 ONCE PRN adequate visualization Protocol Sevelamer Carbonate 800 - 1,600 mg 05/03/25 08:00 05/04/25 11:06 Sevelamer Carbonate 800 Mg Tablet PO Not Given TIDWM [facility] Thiamine HCl 100 mg 05/03/25 09:00 05/03/25 08:08 Thiamine Hcl 100 Mg Tablet PO 100 mg QAM DARWIN Administration Radiology Results: ITS Impressions Chest X-Ray 05/02/25 16:01 Impression: CHF Head CT 05/02/25 16:17 Impression: 1. Motion artifact limits evaluation. No acute infarct or hemorrhage Carotid Doppler Study 05/03/25 15:26 Impression: 1.Right internal carotid artery: [Less than 50% stenosis 2.Left internal carotid artery: [Less than 50% stenosis 3.Vertebral arteries: Antegrade flow. Labs Labs: Laboratory Tests 05/04/25 04:13 05/04/25 04:13 PT 21.0 H INR 1.9 Calcium 7.8 L Phosphorus 3.7 Total Bilirubin 2.0 H AST 23 ALT 17 Alkaline Phosphatase 103 Ammonia 148 H Total Protein 6.1 L Albumin 3.4 L Hep Bs Antigen Negative Hep Bs Antibody Positive
[2025-05-04] MEDS: EPOETIN ALFA-EPBX 10,000 UNITS/ML VIAL 10000 UNITS IV PUSH (10:24)
[2025-05-04] MEDS: LACTULOSE 20 GM/30 ML UDC 30 GM PO ×2 (13:58→18:01)
[2025-05-04] MEDS: THIAMINE HCL 100 MG TABLET PO (13:59)
[2025-05-04] MEDS: SEVELAMER CARBONATE 800 MG TABLET PO (13:59)
[2025-05-04] MEDS: PANTOPRAZOLE 40 MG TABLET PO (14:00)
[2025-05-04] MEDS: FOLIC ACID 1 MG TABLET PO (14:00)
--- NOTE | 2025-05-04 16:02 | P.PNIM_ITS ---
Progress Note: A&P Assessment and Plan (1) Encephalopathy, hepatic: Code(s): K72.90 - Hepatic failure, unspecified without coma Status: Acute Assessment and Plan: * Elevated ammonia and likely medication noncompliance support hepatic encephalopathy * Wernicke encephalopathy is also a concern, but less likely without other findings * Sudden onset, rapid improvement, and prior MRI brain suggesting atherosclerosi s elevate concern for stroke or TIA * Given chronic use of Keppra, partial seizure is also a concern * Given prior hx of AUD, current use of cannabis, check UDS * Cotinue home regimen, thiamine, folic acid * 05/03 MRI brain and carotid dopplers ordered (2) Cirrhosis, alcoholic: Qualifiers: Ascites presence: without ascites Qualified Code(s): K70.30 - Alcoholic cirrhosis of liver without ascites Code(s): K70.30 - Alcoholic cirrhosis of liver without ascites Status: Acute Assessment and Plan: * Reports abstaining from alcohol for over 2 years * Lab findings relatively stable from previously * Continue home regimen (3) ESRD needing dialysis: Code(s): N18.6 - End stage renal disease; Z99.2 - Dependence on renal dialysis Status: Chronic Assessment and Plan: * Nephrology consulted for dialysis (4) Pancytopenia: Code(s): D61.818 - Other pancytopenia Status: Acute Assessment and Plan: * Likely related to alcoholic cirrhosis * Labs relatively stable from previously (5) Mitral insufficiency and aortic stenosis: Code(s): I08.0 - Rheumatic disorders of both mitral and aortic valves Status: Acute Assessment and Plan: * mild, MAC with insufficiency * Denied cardiac issues * 05/03 Echo ordered Plan DVT prophylaxis on Sq heparin Subjective Date/time seen: 05/04/25 16:02 Interval history: Comfortable at bedside Added Isosorbide mononitrate for hypertension with elevated blood pressure Review of Systems Review of Systems: All systems reviewed & are unremarkable except as noted in HPI and below Exam Narrative: HEENT: EOMI, PERRL, sclerae nonicteric, pharyngeal mucosa pink and intact NECK: No JVD, adenopathy, or thyromegaly, no carotid bruits CHEST: Clear to auscultation. Normal effort. HEART: NL S1/ S2, regular, 3/5 holosystolic murmur at apex radiating to axilla, soft JACOB RUSB w/o radiation ABDOMEN: BS+, soft, nontender, no mass, no bruits EXTREMITIES: No cyanosis, edema, or clubbing NEUROLOGIC: CN intact and symmetric to inspection, DTR's symmetric, Babinski's downgoing, no tremor MUSCULOSKELETAL: Tone and strength symmetric in UE's and LE's PSYCH: Alert. Oriented to person, place, and year, but not to month (August), speech slow but clear and coherent Const: General: comfortable and no acute distress Other: Pleasantly confused HENMT: Mouth: Yes moist mucous membranes Eyes: Pupils: Equal, round and reactive pupils present Neck: Neck: supple Resp: Effort & Inspection: normal respiratory effort Auscultation: clear to auscultation bilaterally Cardio: Rate: regular rate Rhythm: regular rhythm Heart sounds: Murmur heart sound present GI: Inspection: non-distended : General: Yes bladder normal to palpation Neuro: Cranial nerves: Yes Equal, round and reactive pupils present Motor exam (neuro): 5/5 motor strength present throughout Extrem: General: no edema Objective Data Vital Signs Vital Signs: Vital Signs - 24 hr 05/03/25 18:00 05/03/25 20:00 05/03/25 20:00 Temperature 99.3 F Pulse Rate 60 63 Respiratory Rate 14 Blood Pressure 155/37 H Pulse Oximetry 99 Oxygen Delivery Room Air Fraction of Inspired Oxygen 05/03/25 20:00 05/03/25 22:00 05/04/25 00:00 Temperature 98.3 F Pulse Rate 60 61 62 Respiratory Rate 16 Blood Pressure 175/66 H Pulse Oximetry 99 Oxygen Delivery Fraction of Inspired Oxygen 05/04/25 00:00 05/04/25 00:00 05/04/25 02:00 Temperature Pulse Rate 66 59 L Respiratory Rate Blood Pressure Pulse Oximetry Oxygen Delivery Room Air Fraction of Inspired Oxygen 05/04/25 04:00 05/04/25 04:00 05/04/25 04:00 Temperature 99.0 F Pulse Rate 60 58 L Respiratory Rate 14 Blood Pressure 166/57 H Pulse Oximetry 99 Oxygen Delivery Room Air Fraction of Inspired Oxygen 05/04/25 06:00 05/04/25 07:53 05/04/25 08:00 Temperature 98.1 F Pulse Rate 59 L 59 L 57 L Respiratory Rate 14 18 Blood Pressure 160/67 H Pulse Oximetry 99 98 Oxygen Delivery Room Air Fraction of Inspired Oxygen 21 05/04/25 08:00 05/04/25 08:46 05/04/25 09:00 Temperature 98.2 F Pulse Rate 66 57 L 57 L Respiratory Rate 18 Blood Pressure 157/89 H 191/98 H Pulse Oximetry 99 Oxygen Delivery Fraction of Inspired Oxygen 05/04/25 09:15 05/04/25 09:30 05/04/25 09:45 Temperature Pulse Rate 57 L 57 L 57 L Respiratory Rate Blood Pressure 189/83 H 201/83 H 205/52 H Pulse Oximetry Oxygen Delivery Fraction of Inspired Oxygen 05/04/25 10:00 05/04/25 10:15 05/04/25 10:30 Temperature Pulse Rate 60 68 69 Respiratory Rate Blood Pressure 188/88 H 187/85 H 189/92 H Pulse Oximetry Oxygen Delivery Fraction of Inspired Oxygen 05/04/25 10:45 05/04/25 11:00 05/04/25 11:15 Temperature Pulse Rate 71 75 71 Respiratory Rate Blood Pressure 204/91 H 178/97 H 195/83 H Pulse Oximetry Oxygen Delivery Fraction of Inspired Oxygen 05/04/25 11:30 05/04/25 11:45 05/04/25 12:00 Temperature Pulse Rate 71 72 64 Respiratory Rate Blood Pressure 183/86 H 181/85 H 185/82 H Pulse Oximetry Oxygen Delivery Fraction of Inspired Oxygen 05/04/25 12:15 05/04/25 12:30 05/04/25 12:34 Temperature Pulse Rate 65 67 68 Respiratory Rate Blood Pressure 179/81 H 173/91 H 189/74 H Pulse Oximetry Oxygen Delivery Fraction of Inspired Oxygen 05/04/25 12:56 05/04/25 15:40 Temperature 98.1 F 98.3 F Pulse Rate 66 68 Respiratory Rate 18 16 Blood Pressure 170/83 H 187/61 H Pulse Oximetry 98 99 Oxygen Delivery Fraction of Inspired Oxygen Intake/Output Intake/Output: Intake & Output 05/01/25 05/02/25 05/03/25 05/04/25 23:59 23:59 22:59 23:59 Intake Total 195.8 630 340 Output Total 230 2030 Balance 195.8 400 -1690 Meds/Results Medications: Active Medications Generic Name Dose Route Start Last Admin Trade Name Freq PRN Reason Stop Dose Admin Amlodipine Besylate 5 mg 05/03/25 09:00 05/03/25 08:08 Amlodipine Besylate 5 Mg Tablet PO 5 mg DAILY DARWIN Administration Epoetin Nasir-epbx 10,000 units 05/04/25 19:00 05/04/25 10:24 Epoetin Nasir-Epbx 10,000 Units/Ml Vial IV PUSH 05/04/25 19:01 10,000 units ONCE ONE Administration Folic Acid 1 mg 05/03/25 09:00 05/04/25 14:00 Folic Acid 1 Mg Tablet PO 1 mg DAILY DARWIN Administration Hydralazine HCl 25 mg 05/02/25 21:45 05/04/25 14:03 Hydralazine Hcl 25 Mg Tablet BY MOUTH 25 mg TIDWM DARWIN Administration Albumin Human 50 mls @ 999 mls/hr 05/03/25 15:31 Albutein IVPB 06/02/25 15:30 Q10M PRN HYPOTENSION Lactulose 30 gm 05/03/25 09:00 05/04/25 13:58 Lactulose 20 Gm/30 Ml Udc PO 30 gm TID DARWIN Administration Levetiracetam 750 mg 05/02/25 21:45 05/04/25 11:06 Levetiracetam 250 Mg Tablet PO 750 mg Q12HR DARWIN Administration Lidocaine/Prilocaine 1 each 05/03/25 15:32 Lidocaine/Prilocaine Cream 2.5-2.5% Tube TOPICAL WITH DIALYSIS PRN for dialysis Protocol Pantoprazole Sodium 40 mg 05/04/25 09:00 05/04/25 14:00 Pantoprazole 40 Mg Tablet PO 40 mg QAM DARWIN Administration Perflutren Lipid Microsphere 0 ml 05/03/25 09:55 Perflutren Lipid Microspheres 1.5 Ml Vial Diluted To 10 Ml Total Volume IV PUSH 05/06/25 09:56 ONCE PRN adequate visualization Protocol Sevelamer Carbonate 800 - 1,600 mg 05/03/25 08:00 05/04/25 13:59 Sevelamer Carbonate 800 Mg Tablet PO 800 mg TIDWM DARWIN Administration Thiamine HCl 100 mg 05/03/25 09:00 05/04/25 13:59 Thiamine Hcl 100 Mg Tablet PO 100 mg QAM DARWIN Administration Radiology Results: ITS Impressions Chest X-Ray 05/02/25 16:01 Impression: CHF Head CT 05/02/25 16:17 Impression: 1. Motion artifact limits evaluation. No acute infarct or hemorrhage Carotid Doppler Study 05/03/25 15:26 Impression: 1.Right internal carotid artery: [Less than 50% stenosis 2.Left internal carotid artery: [Less than 50% stenosis 3.Vertebral arteries: Antegrade flow. Labs Labs: Laboratory Results - last 24 hr 05/04/25 04:13 WBC 2.2 L RBC 2.59 L Hgb 8.6 L Hct 26.2 L MCV 101.2 H MCH 33.2 MCHC 32.8 RDW 14.6 H Plt Count 26 L MPV 10.6 H Immature Gran % (Auto) 0.0 Neut % (Auto) 63.0 Lymph % (Auto) 27.9 [place] % (Auto) 6.8 Eos % (Auto) 2.3 Baso % (Auto) 0.0 L Lymph # (Auto) 0.62 L [place] # (Auto) 0.2 Eos # (Auto) 0.1 Baso # (Auto) 0.0 Abs Immat Gran (auto) 0.00 Absolute Neuts (auto) 1.4 Absolute Nucleated RBC 0.000 Nucleated RBC % 0.0 % Immature Plt Fraction 3.3 PT 21.0 H INR 1.9 Sodium 136 L Potassium 4.6 Chloride 98 Carbon Dioxide 28 Anion Gap 10 BUN 37 H Creatinine 7.09 H Estim Creat Clear Calc 11 Estimated GFR 8 L Glucose 107 Calcium 7.8 L Phosphorus 3.7 Total Bilirubin 2.0 H AST 23 ALT 17 Alkaline Phosphatase 103 Ammonia 148 H Total Protein 6.1 L Albumin 3.4 L Hep Bs Antigen Negative Hep Bs Antibody Positive
[2025-05-04] MEDS: ONDANSETRON INJ 4 MG/2 ML VIAL IV PUSH (16:42)
[2025-05-04] MEDS: ISOSORBIDE MONONITRATE 30 MG TAB.ER.24H PO (16:42)
[2025-05-04] MEDS: PROCHLORPERAZINE EDISYLATE 10 MG/2 ML VIAL IV PUSH (19:02)
[2025-05-05] VITALS (15 sets, daily range): BP systolic 142–169; BP diastolic 59–69; PULSE 59–81; RESP 14–18; TEMP 36.2–37.2; O2SAT 97–100
--- NOTE | 2025-05-05 | ECHO_ITS ---
Patient Info Name: Jj Cuello Age: 59 years : 1965 Gender: Male Ht: 70 in Wt: 168 lbs BSA: 1.95 m2 HR: 60 bpm BP: 156 / 69 mmHg Technical Quality: Good Exam Date: 05/05/2025 10:11 AM Patient Status: I Admit Date: 05/02/2025 Exam Type: CA echo doppler color flow Complete two-dimensional, color flow and Doppler transthoracic echocardiogram is performed. Staff Referring Physician: Casimiro Schaefer MD Gas Plant Specialist: Moni Torrez Attending Provider: Christopher Colvin Summary 1. Complete two-dimensional, color flow and Doppler transthoracic echocardiogram is performed. 2. Left ventricular chamber dimension is normal. 3. Left ventricular systolic function is normal, estimated at 60-65. 4. There is mild concentric increased left ventricular wall thickness. 5. The left ventricular diastolic function is abnormal. 6. E/e' 18 is elevated. 7. Left atrial chamber dimension is moderately enlarged. 8. Right atrial chamber dimension is mildly enlarged. 9. There is moderate aortic valve sclerosis. 10. There is mild aortic valve stenosis with a peak velocity of 313 cm/s, mean gradient of 25 mmHg, and aortic valve area of 1.7 cm2. 11. The mitral valve has a moderately calcified annulus. 12. There is trace mitral valve regurgitation. 13. There is trace tricuspid valve regurgitation. 14. No pulmonary hypertension, estimated pulmonary arterial systolic pressure is 33 mmHg. 15. The aortic root size at the sinus of Valsalva is borderline dilated at 4.1 cm. 16. There is trivial pericardial effusion. Left Ventricle E/e' 18 is elevated. Left ventricular chamber dimension is normal. Left ventricular systolic function is normal, estimated at 60-65. There is mild concentric increased left ventricular wall thickness. The left ventricular diastolic function is abnormal. Right Ventricle Right ventricular chamber dimension is normal. Right ventricular systolic function is normal and with normal TAPSE 2.4 cm. Left Atria Left atrial chamber dimension is moderately enlarged. Right Atria Right atrial chamber dimension is mildly enlarged. Aortic Valve The aortic valve is trileaflet. There is moderate aortic valve sclerosis. There is mild aortic valve stenosis with a peak velocity of 313 cm/s, mean gradient of 25 mmHg, and aortic valve area of 1.7 cm2. There is no aortic valve regurgitation. Pulmonic Valve There is no pulmonic regurgitation. Mitral Valve The mitral valve has a moderately calcified annulus. There is no mitral valve stenosis. There is trace mitral valve regurgitation. Tricuspid Valve There is trace tricuspid valve regurgitation. No pulmonary hypertension, estimated pulmonary arterial systolic pressure is 33 mmHg. Pericardium/Pleural There is trivial pericardial effusion. Inferior Vena Cava Inferior vena cava is not well visualized. Aorta The aortic root size at the sinus of Valsalva is borderline dilated at 4.1 cm. Left Ventricular Outflow Tract Name Value Normal LVOT 2D LVOT Diameter 2.0 cm LVOT Doppler LVOT Peak Velocity 145 cm/s LVOT Peak Gradient 8 mmHg LVOT Mean Gradient 6 mmHg LVOT VTI 44 cm LVOT VTI/AV VTI Ratio 0.6 LVOT Stroke Volume 137 ml LVOT CO 7.9 l/min LVOT CI 4.1 l/min/m2 Pulmonic Valve Name Value Normal RVOT Doppler RVOT Peak Velocity 117 cm/s RVOT Peak Gradient 5 mmHg PV Doppler PV Peak Velocity 164 cm/s PV Peak Gradient 11 mmHg Mitral Valve Name Value Normal MV Diastolic Function MV E Peak Velocity 119 cm/s MV A Peak Velocity 88 cm/s MV E/A 1.4 MV Decel Time (PW) 317 ms MV Annular TDI MV E/e' (Septal) 18.0 MV E/e' (Lateral) 18.4 MV E/e' (Average) 18.2 Tricuspid Valve Name Value Normal TV Regurgitation Doppler TR Peak Velocity 263 cm/s TR Peak Gradient 28 mmHg Estimated PAP/RSVP RA Pressure 5 mmHg <=5 PA Systolic Pressure 33 mmHg <36 RV Systolic Pressure 33 mmHg <36 Aortic Valve Name Value Normal AV Doppler AV Peak Velocity 313 cm/s AV Peak Gradient 39 mmHg AV Mean Gradient 25 mmHg AV VTI 79 cm AV Area (Cont Eq VTI) 1.7 cm2 >=3.0 AV Area (Cont Eq Deshaun) 1.4 cm2 AV DI (Deshaun) 0.46 AV Regurgitation 2D LVOT Area 3.1 cm2 Ventricles Name Value Normal LV Dimensions 2D/MM IVS Diastolic Thickness (2D) 1.2 cm 0.6-1.0 LVID Diastole (2D) 5.2 cm 4.2-5.8 LVIW Diastolic Thickness (2D) 1.1 cm 0.6-1.0 LVID Systole (2D) 3.3 cm 2.5-4.0 LVOT Diameter 2.0 cm LV Mass (2D Cubed) 247.66 g 88.00-224.00 LV Mass Index (2D Cubed) 127 g/m2 49-115 Relative Wall Thickness (2D) 0.43 <=0.42 LV Fractional Shortening/Ejection Fraction 2D/MM LV Fractional Shortening (2D) 37 % 25-43 LV EF (2D Teichholz) 66 % LV Diastolic Volume (4C MOD) 193 ml LV EF (4C MOD) 58 % LV Diastolic Volume (2C MOD) 247 ml LV EF (2C MOD) 56 % LV Diastolic Volume (BP MOD) 224 ml 62-150 LV Diastolic Volume Index (BP MOD) 115 ml/m2 34-74 LV Systolic Volume (BP MOD) 98 ml 21-61 LV Systolic Volume Index (BP MOD) 51 ml/m2 11-31 LV EF (BP MOD) 56 % 52-72 LV Diastolic Length (4C) 10.5 cm LV Systolic Length (4C) 8.6 cm LV Stroke Volume (4C MOD) 112 ml Atria Name Value Normal LA Dimensions LA Volume (4C A-L) 94 ml LA Volume (BP A-L) 101 ml RA Dimensions RA Systolic Major [place] Length (4C) 7.2 cm 2.1-2.7 RA Area (4C) 23.3 cm2 <=18.0 Report Signatures
[2025-05-05 04:02] LABS: Hematocrit 24.3 % (42.0-52.0); Hemoglobin 8.2 g/dL (14.0-18.0); Immature Granulocyte Percent A 0.4 % (0-0.5); Immature Platelet Fraction Pct 3.1 % (0.9-11.2); Lymphocytes Absolute Auto 0.64 K/mm3 (0.9-3.2); Mean Corpuscular HGB Conc 33.7 g/dl (32-36); Mean Corpuscular Hemoglobin 33.7 pg (26-34); Mean Corpuscular Volume 100.0 fl (80-100); Nucleated Red Blood Cells Absolute Auto 0.000 K/mm3 (0.0-0.012); Nucleated Red Blood Cells Perc 0.0 % (0.0-0.2); Red Blood Count 2.43 M/mm3 (4.6-6.20); White Blood Count 2.8 K/mm3 (4.5-10.0)
[2025-05-05 04:08] LABS: Ammonia 26 umol/L (9-30)
[2025-05-05 04:23] LABS: Alanine Aminotransferase 14 U/L (6-50); Albumin Level 3.1 g/dL (3.5-5.1); Alkaline Phosphatase 95 U/L (38-126); Anion Gap 7 mmol/L (4-12); Aspartate Amino Transferase 21 U/L (17-59); Bilirubin,Total 1.9 mg/dL (0.2-1.3); Blood Urea Nitrogen 22 mg/dL (9-20); Calcium 8.2 mg/dL (8.4-10.2); Carbon Dioxide 27 mmol/L (22-30); Chloride 103 mmol/L (98-107); Estimated CRCL calculation 16 ml/min; Estimated Glomerular Filt Rate 13; Glucose 96 mg/dL (65-110); Magnesium 2.1 mg/dL (1.6-2.3); Potassium 4.1 mmol/L (3.4-5.0); Sodium 137 mmol/L (137-145); Total Protein 5.8 g/dL (6.3-8.2)
[2025-05-05 04:27] LABS: Platelet Count Result 24 k/mm3 (150-375)
[2025-05-05] MEDS: SEVELAMER CARBONATE 800 MG TABLET PO ×3 (09:11→17:05)
[2025-05-05] MEDS: FOLIC ACID 1 MG TABLET PO (09:13)
[2025-05-05] MEDS: ISOSORBIDE MONONITRATE 30 MG TAB.ER.24H PO (09:13)
[2025-05-05] MEDS: PANTOPRAZOLE 40 MG TABLET PO (09:13)
[2025-05-05] MEDS: LACTULOSE 20 GM/30 ML UDC 30 GM PO ×3 (09:15→17:06)
[2025-05-05] MEDS: THIAMINE HCL 100 MG TABLET PO (09:15)
--- NOTE | 2025-05-05 10:04 | P.PNNP_ITS ---
Progress Note: A&P Assessment and Plan (1) End stage renal disease: Code(s): N18.6 - End stage renal disease Status: Chronic Assessment and Plan: * HD tomorrow * continue outpatient schedule of Sun/Sun/Fridays while hospitalized * follow electrolytes, volume status, and clearance (2) Altered mental status: Code(s): R41.82 - Altered mental status, unspecified Status: Acute Assessment and Plan: * slow and steady improvement * presumed due to hepatic encephalopathy: * elevated ammonia levels on admission * suspected medication non-compliance (with lactulose) * imaging to date noted: * head CT: no acute findings * carotid dopplers: < 50% stenosis in left/right interal carotid arteries * MRI of brain pending * also, known history of seizure disorder as well * Neurology following * resumed on lactulose and anti-seizure medications * follow mentation (3) Cirrhosis: Code(s): K74.60 - Unspecified cirrhosis of liver Status: Acute Assessment and Plan: * known history * has been sober for the last 2 - 3 years * continue lactulose (4) Hypertension: Code(s): I10 - Essential (primary) hypertension Status: Chronic Assessment and Plan: * elevated at this time * resume home medications * fluid removal with dialysis may help * follow trend of hemodynamics (5) Anemia: Code(s): D64.9 - Anemia, unspecified Status: Chronic Assessment and Plan: * due to ESRD with contributions from liver disease * Epogen with HD * follow trend of H/H (6) Pancytopenia: Code(s): D61.818 - Other pancytopenia Status: Acute Assessment and Plan: * somewhat of a chronic issue * thought to be secondary to liver disease * anemia further complicated by ESRD Will continue to follow. L Subjective Date/time seen: 05/05/25 10:04 Interval history: Follow-up for end stage renal disease on hemodialysis. Tolerated dialysis treatment yesterday morning without any issue or problems; no apparent distress noted at the time of my visit; mentation continues to improve if not stabilize; no other events overnight or earlier this morning. Exam 2 Narrative: General: WD/WN male in NAD Heart: normal S1 and S2; no rub Lungs: clear anteriorly Abdomen: soft, nontender, nondistended, positive bowel sounds Extremities: no cyanosis or clubbing; no edema Skin: warm and intact Objective Data Vital Signs Vital Signs: Vital Signs Temp Pulse Resp BP Pulse Ox O2 Del Method FiO2 05/05/25 10:00 98.2 F 61 18 158/61 H 100 05/05/25 08:30 64 05/05/25 07:59 98.9 F 68 18 169/68 H 100 05/05/25 06:00 59 L 05/05/25 04:00 60 05/05/25 04:00 Room Air 05/05/25 04:00 98.6 F 81 18 156/69 H 97 05/05/25 02:00 81 05/05/25 00:00 78 05/05/25 00:00 Room Air 05/04/25 23:40 99.3 F 76 16 154/84 H 98 05/04/25 22:00 79 05/04/25 20:00 65 05/04/25 20:00 Room Air 05/04/25 20:00 98.3 F 64 16 169/69 H 96 05/04/25 18:00 64 05/04/25 16:00 68 99 Room Air 21 05/04/25 15:40 98.3 F 68 16 187/61 H 99 05/04/25 13:30 64 05/04/25 13:30 68 99 Room Air 05/04/25 12:56 98.1 F 66 18 170/83 H 98 Intake/Output Intake/Output: Intake & Output 05/02/25 05/03/25 05/04/25 05/05/25 23:59 22:59 23:59 23:59 Intake Total 195.8 630 340 760 Output Total 230 2000 Balance 195.8 400 -1660 760 Meds/Results Medications: Active Medications Generic Name Dose Route Start Last Admin Trade Name Alekq PRN Reason Stop Dose Admin Amlodipine Besylate 5 mg 05/03/25 09:00 05/05/25 09:13 Amlodipine Besylate 5 Mg Tablet PO 5 mg DAILY DARWIN Administration Folic Acid 1 mg 05/03/25 09:00 05/05/25 09:13 Folic Acid 1 Mg Tablet PO 1 mg DAILY DARWIN Administration Hydralazine HCl 25 mg 05/02/25 21:45 05/05/25 12:08 Hydralazine Hcl 25 Mg Tablet BY MOUTH 25 mg TIDWM DARWIN Administration Albumin Human 50 mls @ 999 mls/hr 05/03/25 15:31 Albutein IVPB 06/02/25 15:30 Q10M PRN HYPOTENSION Isosorbide Mononitrate 30 mg 05/04/25 16:10 05/05/25 09:13 Isosorbide Mononitrate 30 Mg Tab.Er.24h PO 30 mg QAM DARWIN Administration Lactulose 30 gm 05/03/25 09:00 05/05/25 12:09 Lactulose 20 Gm/30 Ml Udc PO 30 gm TID DARWIN Administration Levetiracetam 750 mg 05/02/25 21:45 05/05/25 09:10 Levetiracetam 250 Mg Tablet PO 750 mg Q12HR DARWIN Administration Lidocaine/Prilocaine 1 each 05/03/25 15:32 Lidocaine/Prilocaine Cream 2.5-2.5% Tube TOPICAL WITH DIALYSIS PRN for dialysis Protocol Ondansetron HCl 4 mg 05/04/25 16:24 05/04/25 16:42 Ondansetron Inj 4 Mg/2 Ml Vial IV PUSH 4 mg Q6H PRN Administration Nausea And Vomiting Pantoprazole Sodium 40 mg 05/04/25 09:00 05/05/25 09:13 Pantoprazole 40 Mg Tablet PO 40 mg QAM DARWIN Administration Perflutren Lipid Microsphere 0 ml 05/03/25 09:55 Perflutren Lipid Microspheres 1.5 Ml Vial Diluted To 10 Ml Total Volume IV PUSH 05/06/25 09:56 ONCE PRN adequate visualization Protocol Prochlorperazine Edisylate 10 mg 05/04/25 18:38 05/04/25 19:02 Prochlorperazine Edisylate 10 Mg/2 Ml Vial IV PUSH 10 mg Q6H PRN Administration Nausea And Vomiting Sevelamer Carbonate 800 - 1,600 mg 05/03/25 08:00 05/05/25 12:08 Sevelamer Carbonate 800 Mg Tablet PO 800 mg TIDWM DARWIN Administration Thiamine HCl 100 mg 05/03/25 09:00 05/05/25 09:15 Thiamine Hcl 100 Mg Tablet PO 100 mg QAM DARWIN Administration Radiology Results: ITS Impressions Chest X-Ray 05/02/25 16:01 Impression: CHF Head CT 05/02/25 16:17 Impression: 1. Motion artifact limits evaluation. No acute infarct or hemorrhage Carotid Doppler Study 05/03/25 15:26 Impression: 1.Right internal carotid artery: [Less than 50% stenosis 2.Left internal carotid artery: [Less than 50% stenosis 3.Vertebral arteries: Antegrade flow. Labs Labs: Laboratory Tests 05/05/25 03:52 05/05/25 03:52 Calcium 8.2 L Phosphorus 3.4 Magnesium 2.1 Total Bilirubin 1.9 H AST 21 ALT 14 Alkaline Phosphatase 95 Ammonia 26 Total Protein 5.8 L Albumin 3.1 L Microbiology 05/02/25 23:31 Blood Blood Culture - Preliminary 05/02/25 23:29 Blood Blood Culture - Preliminary
--- NOTE | 2025-05-05 17:33 | WNDPHOTO ---
PHOTO ONLY - See Nursing Notes and/ or assessments for documentation.
--- NOTE | 2025-05-05 18:53 | P.PNIM_ITS ---
Progress Note: A&P Assessment and Plan (1) Encephalopathy, hepatic: Code(s): K72.90 - Hepatic failure, unspecified without coma Status: Acute Assessment and Plan: * Elevated ammonia and likely medication noncompliance support hepatic encephalopathy * Wernicke encephalopathy is also a concern, but less likely without other findings * Sudden onset, rapid improvement, and prior MRI brain suggesting atherosclerosi s elevate concern for stroke or TIA * Given chronic use of Keppra, partial seizure is also a concern * Given prior hx of AUD, current use of cannabis, check UDS-only positive for cannabinoids * Continue home regimen, thiamine, folic acid * 05/03 MRI brain and carotid dopplers ordered, carotid Doppler normal, MRI still pending * 05/05: Mental status significantly improved today aao x3, coherent (2) Cirrhosis, alcoholic: Qualifiers: Ascites presence: without ascites Qualified Code(s): K70.30 - Alcoholic cirrhosis of liver without ascites Code(s): K70.30 - Alcoholic cirrhosis of liver without ascites Status: Acute Assessment and Plan: * Reports abstaining from alcohol for over 2 years * Lab findings relatively stable from previously * Continue home regimen * Average making 2 bowel movements daily on lactulose (3) ESRD needing dialysis: Code(s): N18.6 - End stage renal disease; Z99.2 - Dependence on renal dialysis Status: Chronic Assessment and Plan: * Nephrology consulted for dialysis-Sunday schedule (4) Pancytopenia: Code(s): D61.818 - Other pancytopenia Status: Acute Assessment and Plan: * Likely related to alcoholic cirrhosis * Labs relatively stable from previously (5) Mitral insufficiency and aortic stenosis: Code(s): I08.0 - Rheumatic disorders of both mitral and aortic valves Status: Acute Assessment and Plan: * mild, MAC with insufficiency * Denied cardiac issues * 05/03 Echo ordered Plan DVT prophylaxis on Sq heparin Subjective Date/time seen: 05/05/25 18:53 Review of Systems Review of Systems: All systems reviewed & are unremarkable except as noted in HPI and below Exam Narrative: HEENT: EOMI, PERRL, sclerae nonicteric, pharyngeal mucosa pink and intact NECK: No JVD, adenopathy, or thyromegaly, no carotid bruits CHEST: Clear to auscultation. Normal effort. HEART: NL S1/ S2, regular, 3/5 holosystolic murmur at apex radiating to axilla, soft JACOB RUSB w/o radiation ABDOMEN: BS+, soft, nontender, no mass, no bruits EXTREMITIES: No cyanosis, edema, or clubbing NEUROLOGIC: CN intact and symmetric to inspection, DTR's symmetric, Babinski's downgoing, no tremor MUSCULOSKELETAL: Tone and strength symmetric in UE's and LE's PSYCH: Alert. Oriented to person, place, and year Const: General: comfortable and no acute distress HENMT: Mouth: Yes moist mucous membranes Eyes: Pupils: Equal, round and reactive pupils present Neck: Neck: supple Resp: Effort & Inspection: normal respiratory effort Auscultation: clear to auscultation bilaterally Cardio: Rate: regular rate Rhythm: regular rhythm Heart sounds: Murmur heart sound present GI: Inspection: non-distended : General: Yes bladder normal to palpation Neuro: Cranial nerves: Yes Equal, round and reactive pupils present Motor exam (neuro): 5/5 motor strength present throughout Extrem: General: no edema Objective Data Vital Signs Vital Signs: Vital Signs - 24 hr 05/04/25 20:00 05/04/25 20:00 05/04/25 20:00 Temperature 98.3 F Pulse Rate 64 65 Respiratory Rate 16 Blood Pressure 169/69 H Pulse Oximetry 96 Oxygen Delivery Room Air 05/04/25 22:00 05/04/25 23:40 05/05/25 00:00 Temperature 99.3 F Pulse Rate 79 76 Respiratory Rate 16 Blood Pressure 154/84 H Pulse Oximetry 98 Oxygen Delivery Room Air 05/05/25 00:00 05/05/25 02:00 05/05/25 04:00 Temperature 98.6 F Pulse Rate 78 81 81 Respiratory Rate 18 Blood Pressure 156/69 H Pulse Oximetry 97 Oxygen Delivery 05/05/25 04:00 05/05/25 04:00 05/05/25 06:00 Temperature Pulse Rate 60 59 L Respiratory Rate Blood Pressure Pulse Oximetry Oxygen Delivery Room Air 05/05/25 07:59 05/05/25 08:30 05/05/25 10:00 Temperature 98.9 F Pulse Rate 68 64 61 Respiratory Rate 18 Blood Pressure 169/68 H Pulse Oximetry 100 Oxygen Delivery 05/05/25 11:48 05/05/25 12:00 05/05/25 12:00 Temperature 98.2 F Pulse Rate 61 61 Respiratory Rate 18 Blood Pressure 158/61 H Pulse Oximetry 100 Oxygen Delivery Room Air 05/05/25 14:00 05/05/25 16:00 05/05/25 16:36 Temperature 97.1 F L Pulse Rate 68 66 Respiratory Rate 18 Blood Pressure 147/64 H Pulse Oximetry 100 Oxygen Delivery Room Air 05/05/25 16:36 Temperature Pulse Rate 66 Respiratory Rate Blood Pressure Pulse Oximetry Oxygen Delivery Intake/Output Intake/Output: Intake & Output 05/02/25 05/03/25 05/04/25 05/05/25 23:59 22:59 23:59 23:59 Intake Total 195.8 237 760 4263 Output Total 230 2000 1 Balance 195.8 400 -1660 1539 Meds/Results Medications: Active Medications Generic Name Dose Route Start Last Admin Trade Name Freq PRN Reason Stop Dose Admin Amlodipine Besylate 5 mg 05/03/25 09:00 05/05/25 09:13 Amlodipine Besylate 5 Mg Tablet PO 5 mg DAILY DARWIN Administration Folic Acid 1 mg 05/03/25 09:00 05/05/25 09:13 Folic Acid 1 Mg Tablet PO 1 mg DAILY DARWIN Administration Hydralazine HCl 25 mg 05/02/25 21:45 05/05/25 17:06 Hydralazine Hcl 25 Mg Tablet BY MOUTH 25 mg TIDWM DARWIN Administration Albumin Human 50 mls @ 999 mls/hr 05/03/25 15:31 Albutein IVPB 06/02/25 15:30 Q10M PRN HYPOTENSION Isosorbide Mononitrate 30 mg 05/04/25 16:10 05/05/25 09:13 Isosorbide Mononitrate 30 Mg Tab.Er.24h PO 30 mg QAM DARWIN Administration Lactulose 30 gm 05/03/25 09:00 05/05/25 17:06 Lactulose 20 Gm/30 Ml Udc PO 30 gm TID DARWIN Administration Levetiracetam 750 mg 05/02/25 21:45 05/05/25 09:10 Levetiracetam 250 Mg Tablet PO 750 mg Q12HR DARWIN Administration Lidocaine/Prilocaine 1 each 05/03/25 15:32 Lidocaine/Prilocaine Cream 2.5-2.5% Tube TOPICAL WITH DIALYSIS PRN for dialysis Protocol Ondansetron HCl 4 mg 05/04/25 16:24 05/04/25 16:42 Ondansetron Inj 4 Mg/2 Ml Vial IV PUSH 4 mg Q6H PRN Administration Nausea And Vomiting Pantoprazole Sodium 40 mg 05/04/25 09:00 05/05/25 09:13 Pantoprazole 40 Mg Tablet PO 40 mg QAM DARWIN Administration Perflutren Lipid Microsphere 0 ml 05/03/25 09:55 Perflutren Lipid Microspheres 1.5 Ml Vial Diluted To 10 Ml Total Volume IV PUSH 05/06/25 09:56 ONCE PRN adequate visualization Protocol Prochlorperazine Edisylate 10 mg 05/04/25 18:38 05/04/25 19:02 Prochlorperazine Edisylate 10 Mg/2 Ml Vial IV PUSH 10 mg Q6H PRN Administration Nausea And Vomiting Sevelamer Carbonate 800 - 1,600 mg 05/03/25 08:00 05/05/25 17:05 Sevelamer Carbonate 800 Mg Tablet PO 800 mg TIDWM DARWIN Administration Thiamine HCl 100 mg 05/03/25 09:00 05/05/25 09:15 Thiamine Hcl 100 Mg Tablet PO 100 mg QAM DARWIN Administration Radiology Results: ITS Impressions Chest X-Ray 05/02/25 16:01 Impression: CHF Head CT 05/02/25 16:17 Impression: 1. Motion artifact limits evaluation. No acute infarct or hemorrhage Carotid Doppler Study 05/03/25 15:26 Impression: 1.Right internal carotid artery: [Less than 50% stenosis 2.Left internal carotid artery: [Less than 50% stenosis 3.Vertebral arteries: Antegrade flow. Labs Labs: Laboratory Results - last 24 hr 05/05/25 03:52 WBC 2.8 L RBC 2.43 L Hgb 8.2 L Hct 24.3 L MCV 100.0 MCH 33.7 MCHC 33.7 RDW 15.1 H Plt Count 24 L* MPV 10.5 H Immature Gran % (Auto) 0.4 Neut % (Auto) 67.0 Lymph % (Auto) 22.7 [place] % (Auto) 7.4 Eos % (Auto) 2.1 Baso % (Auto) 0.4 Lymph # (Auto) 0.64 L [place] # (Auto) 0.2 Eos # (Auto) 0.1 Baso # (Auto) 0.0 Abs Immat Gran (auto) 0.01 Absolute Neuts (auto) 1.9 Absolute Nucleated RBC 0.000 Nucleated RBC % 0.0 % Immature Plt Fraction 3.1 Sodium 137 Potassium 4.1 Chloride 103 Carbon Dioxide 27 Anion Gap 7 BUN 22 H D Creatinine 4.74 H Estim Creat Clear Calc 16 Estimated GFR 13 L Glucose 96 Calcium 8.2 L Phosphorus 3.4 Magnesium 2.1 Total Bilirubin 1.9 H AST 21 ALT 14 Alkaline Phosphatase 95 Ammonia 26 Total Protein 5.8 L Albumin 3.1 L Hospitalist MIPS Advance Care Plan I have confirmed that the patient's Advanced Care Plan is present, code status is documented, or surrogate decision maker is listed in patient medical record.: Yes Medication Reconciliation I have utilized all available resources to obtain, update and review the patients current medications (includes all prescriptions, OTC, herbals, cannabis, and nutritional supplements).: Yes
[2025-05-05] MEDS: MELATONIN 5 MG TABLET PO (20:41)
[2025-05-06] VITALS (20 sets, daily range): BP systolic 113–180; BP diastolic 58–74; PULSE 61–74; RESP 16–20; TEMP 36.4–37; O2SAT 98–100
--- NOTE | 2025-05-06 00:59 | PC.NURSE ---
This patient, Jj Cuello, was transferred to [facility] on 05/06/25 at 0059 via bed with this RN and one tech and no issues present. Personal belongings sent with patient. Report given to Gonzalez HASKINS. Appropriate documentation sent with patient.
[2025-05-06 06:11] LABS: Hematocrit 23.4 % (42.0-52.0); Hemoglobin 7.6 g/dL (14.0-18.0); Immature Granulocyte Percent A 0.7 % (0-0.5); Immature Platelet Fraction Pct 4.3 % (0.9-11.2); Lymphocytes Absolute Auto 0.74 K/mm3 (0.9-3.2); Mean Corpuscular HGB Conc 32.5 g/dl (32-36); Mean Corpuscular Hemoglobin 32.6 pg (26-34); Mean Corpuscular Volume 100.4 fl (80-100); Nucleated Red Blood Cells Absolute Auto 0.000 K/mm3 (0.0-0.012); Nucleated Red Blood Cells Perc 0.0 % (0.0-0.2); Red Blood Count 2.33 M/mm3 (4.6-6.20); White Blood Count 2.8 K/mm3 (4.5-10.0)
[2025-05-06 06:31] LABS: Alanine Aminotransferase 16 U/L (6-50); Albumin Level 3.1 g/dL (3.5-5.1); Alkaline Phosphatase 127 U/L (38-126); Anion Gap 6 mmol/L (4-12); Aspartate Amino Transferase 23 U/L (17-59); Bilirubin,Total 1.7 mg/dL (0.2-1.3); Blood Urea Nitrogen 33 mg/dL (9-20); Calcium 7.8 mg/dL (8.4-10.2); Carbon Dioxide 26 mmol/L (22-30); Chloride 101 mmol/L (98-107); Estimated CRCL calculation 11 ml/min; Estimated Glomerular Filt Rate 8; Glucose 100 mg/dL (65-110); Potassium 4.3 mmol/L (3.4-5.0); Sodium 133 mmol/L (137-145); Total Protein 5.7 g/dL (6.3-8.2)
[2025-05-06 06:53] LABS: Platelet Count Result 21 k/mm3 (150-375)
[2025-05-06] MEDS: THIAMINE HCL 100 MG TABLET PO (09:00)
[2025-05-06] MEDS: PANTOPRAZOLE 40 MG TABLET PO (09:01)
[2025-05-06] MEDS: FOLIC ACID 1 MG TABLET PO (09:01)
[2025-05-06] MEDS: SEVELAMER CARBONATE 800 MG TABLET PO ×3 (09:01→17:59)
[2025-05-06] MEDS: LACTULOSE 20 GM/30 ML UDC 30 GM PO ×3 (09:01→17:59)
[2025-05-06] MEDS: ISOSORBIDE MONONITRATE 30 MG TAB.ER.24H PO (09:01)
[2025-05-06] MEDS: diazePAM INJ (*CRX) 10 MG/2 ML SYRINGE 2.5 MG IV PUSH (11:21)
--- NOTE | 2025-05-06 14:17 | P.PNNP_ITS ---
Progress Note: A&P Assessment and Plan (1) End stage renal disease: Code(s): N18.6 - End stage renal disease Status: Chronic Assessment and Plan: * HD today * continue outpatient schedule of Sun/Sun/Fridays while hospitalized * follow electrolytes, volume status, and clearance (2) Altered mental status: Code(s): R41.82 - Altered mental status, unspecified Status: Acute Assessment and Plan: * slow and steady improvement * presumed due to hepatic encephalopathy: * elevated ammonia levels on admission * suspected medication non-compliance (with lactulose) * imaging to date noted: * head CT: no acute findings * carotid dopplers: < 50% stenosis in left/right interal carotid arteries * MRI of brain pending * also, known history of seizure disorder as well * Neurology following * resumed on lactulose and anti-seizure medications * follow mentation (3) Cirrhosis: Code(s): K74.60 - Unspecified cirrhosis of liver Status: Acute Assessment and Plan: * known history * has been sober for the last 2 - 3 years * continue lactulose (4) Hypertension: Code(s): I10 - Essential (primary) hypertension Status: Chronic Assessment and Plan: * elevated at this time * resume home medications * fluid removal with dialysis may help * follow trend of hemodynamics (5) Anemia: Code(s): D64.9 - Anemia, unspecified Status: Chronic Assessment and Plan: * due to ESRD with contributions from liver disease * Epogen with HD * follow trend of H/H (6) Pancytopenia: Code(s): D61.818 - Other pancytopenia Status: Acute Assessment and Plan: * somewhat of a chronic issue * thought to be secondary to liver disease * anemia further complicated by ESRD Not opposed to discharge from renal perspective if otherwise medically stable. Will continue to follow. L Subjective Date/time seen: 05/06/25 14:17 Interval history: Follow-up for end stage renal disease on hemodialysis. Tolerating dialysis treatment yesterday at the time of my visit (seen on HD at 2:05pm); no apparent distress noted when seen; mental status/mentation appears at baseline; no other issues/events overnight or earlier this morning. Exam 2 Narrative: General: WD/WN male in NAD Heart: normal S1 and S2; no rub Lungs: clear anteriorly Abdomen: soft, nontender, nondistended, positive bowel sounds Extremities: no cyanosis or clubbing; no edema Skin: no rash or nodules Objective Data Vital Signs Vital Signs: Vital Signs Temp Pulse Resp BP Pulse Ox O2 Del Method 05/06/25 17:00 69 153/68 H 05/06/25 16:45 69 152/69 H 05/06/25 16:30 69 150/66 H 05/06/25 16:15 74 180/72 H 05/06/25 16:00 67 153/69 H 05/06/25 15:45 67 142/69 H 05/06/25 15:30 65 141/65 H 05/06/25 15:15 65 143/66 H 05/06/25 15:00 66 147/69 H 05/06/25 14:45 62 134/64 05/06/25 14:30 61 113/58 L 05/06/25 14:15 61 122/59 L 05/06/25 14:00 61 144/67 H 05/06/25 13:45 61 144/64 H 05/06/25 13:40 64 148/68 H 05/06/25 13:26 97.5 F L 65 18 150/65 H 100 05/06/25 12:50 Room Air 05/06/25 11:00 Room Air 05/06/25 04:26 98.4 F 67 20 146/74 H 98 05/05/25 23:34 99 F 74 14 148/63 H 100 05/05/25 20:00 Room Air 05/05/25 19:49 98.5 F 66 14 142/59 H 99 05/05/25 18:00 69 Intake/Output Intake/Output: Intake & Output 05/03/25 05/04/25 05/05/25 05/06/25 22:59 23:59 23:59 23:59 Intake Total 764 995 4345 300 Output Total 230 2000 1 0 Balance 400 -1660 1539 300 Meds/Results Medications: Active Medications Generic Name Dose Route Start Last Admin Trade Name Freq PRN Reason Stop Dose Admin Amlodipine Besylate 5 mg 05/03/25 09:00 05/06/25 09:01 Amlodipine Besylate 5 Mg Tablet PO 5 mg DAILY DARWIN Administration Epoetin Nasir-epbx 10,000 units 05/06/25 18:07 05/06/25 15:57 Epoetin Nasir-Epbx 10,000 Units/Ml Vial IV PUSH 05/06/25 18:08 10,000 units ONCE ONE Administration Folic Acid 1 mg 05/03/25 09:00 05/06/25 09:01 Folic Acid 1 Mg Tablet PO 1 mg DAILY DARWIN Administration Hydralazine HCl 25 mg 05/02/25 21:45 05/06/25 13:14 Hydralazine Hcl 25 Mg Tablet BY MOUTH 25 mg TIDWM DARWIN Administration Albumin Human 50 mls @ 999 mls/hr 05/03/25 15:31 Albutein IVPB 06/02/25 15:30 Q10M PRN HYPOTENSION Isosorbide Mononitrate 30 mg 05/04/25 16:10 05/06/25 09:01 Isosorbide Mononitrate 30 Mg Tab.Er.24h PO 30 mg QAM DARWIN Administration Lactulose 30 gm 05/03/25 09:00 05/06/25 13:14 Lactulose 20 Gm/30 Ml Udc PO 30 gm TID DARWIN Administration Levetiracetam 750 mg 05/02/25 21:45 05/06/25 09:01 Levetiracetam 250 Mg Tablet PO 750 mg Q12HR DARWIN Administration Lidocaine/Prilocaine 1 each 05/03/25 15:32 Lidocaine/Prilocaine Cream 2.5-2.5% Tube TOPICAL WITH DIALYSIS PRN for dialysis Protocol Melatonin 5 mg 05/05/25 21:00 05/05/25 20:41 Melatonin 5 Mg Tablet PO 5 mg HS DARWIN Administration Ondansetron HCl 4 mg 05/04/25 16:24 05/04/25 16:42 Ondansetron Inj 4 Mg/2 Ml Vial IV PUSH 4 mg Q6H PRN Administration Nausea And Vomiting Pantoprazole Sodium 40 mg 05/04/25 09:00 05/06/25 09:01 Pantoprazole 40 Mg Tablet PO 40 mg QAM DARWIN Administration Prochlorperazine Edisylate 10 mg 05/04/25 18:38 05/04/25 19:02 Prochlorperazine Edisylate 10 Mg/2 Ml Vial IV PUSH 10 mg Q6H PRN Administration Nausea And Vomiting Sevelamer Carbonate 800 - 1,600 mg 05/03/25 08:00 05/06/25 13:14 Sevelamer Carbonate 800 Mg Tablet PO 800 mg TIDWM DARWIN Administration Thiamine HCl 100 mg 05/03/25 09:00 05/06/25 09:00 Thiamine Hcl 100 Mg Tablet PO 100 mg QAM DARWIN Administration Radiology Results: ITS Impressions Chest X-Ray 05/02/25 16:01 Impression: CHF Head CT 05/02/25 16:17 Impression: 1. Motion artifact limits evaluation. No acute infarct or hemorrhage Carotid Doppler Study 05/03/25 15:26 Impression: 1.Right internal carotid artery: [Less than 50% stenosis 2.Left internal carotid artery: [Less than 50% stenosis 3.Vertebral arteries: Antegrade flow. Labs Labs: Laboratory Tests 05/06/25 05:27 05/06/25 05:27 Calcium 7.8 L Phosphorus 2.9 Total Bilirubin 1.7 H AST 23 ALT 16 Alkaline Phosphatase 127 H Total Protein 5.7 L Albumin 3.1 L Microbiology 05/02/25 23:31 Blood Blood Culture - Preliminary 05/02/25 23:29 Blood Blood Culture - Preliminary
--- NOTE | 2025-05-06 14:37 | P.PNNEUR_ITS ---
Subjective Date/time seen: 05/06/25 14:37 Interval history: recurrent seizure for which patient is on Keppra 750mg q.12 hours 2. Chronic renal disease renal dialysis dependent most seizures have recurred after the dialysis could be secondary to drop in the Keppra level, brain MRI is awaited, Doppler carotid studies are without any significant abnormalities, MRI of the brain in September of this year was normal. Patient will benefit from the extra dose of Keppra prior to the dialysis . On follow-up exam today he is completely back to normal. Objective Data Vital Signs Vital Signs: Vital Signs - 24 hr 05/05/25 16:00 05/05/25 16:36 05/05/25 16:36 Temperature 36.2 C L Pulse Rate 66 66 Respiratory Rate 18 Blood Pressure 147/64 H Pulse Oximetry 100 Oxygen Delivery Room Air 05/05/25 18:00 05/05/25 19:49 05/05/25 20:00 Temperature 36.9 C Pulse Rate 69 66 Respiratory Rate 14 Blood Pressure 142/59 H Pulse Oximetry 99 Oxygen Delivery Room Air 05/05/25 23:34 05/06/25 04:26 05/06/25 11:00 Temperature 37.2 C 36.9 C Pulse Rate 74 67 Respiratory Rate 14 20 Blood Pressure 148/63 H 146/74 H Pulse Oximetry 100 98 Oxygen Delivery Room Air 05/06/25 12:50 05/06/25 13:26 05/06/25 13:40 Temperature 36.4 C L Pulse Rate 65 64 Respiratory Rate 18 Blood Pressure 150/65 H 148/68 H Pulse Oximetry 100 Oxygen Delivery Room Air 05/06/25 13:45 05/06/25 14:00 05/06/25 14:15 Temperature Pulse Rate 61 61 61 Respiratory Rate Blood Pressure 144/64 H 144/67 H 122/59 L Pulse Oximetry Oxygen Delivery Intake/Output Intake/Output: Intake & Output 05/03/25 05/04/25 05/05/25 05/06/25 22:59 23:59 23:59 23:59 Intake Total 136 012 2930 300 Output Total 230 2000 1 0 Balance 400 -1660 1539 300 Meds/Results Medications: Active Medications Generic Name Dose Route Start Last Admin Trade Name Freq PRN Reason Stop Dose Admin Amlodipine Besylate 5 mg 05/03/25 09:00 05/06/25 09:01 Amlodipine Besylate 5 Mg Tablet PO 5 mg DAILY DARWIN Administration Epoetin Nasir-epbx 10,000 units 05/06/25 18:07 Epoetin Nasir-Epbx 10,000 Units/Ml Vial IV PUSH 05/06/25 18:08 ONCE ONE Folic Acid 1 mg 05/03/25 09:00 05/06/25 09:01 Folic Acid 1 Mg Tablet PO 1 mg DAILY DARWIN Administration Hydralazine HCl 25 mg 05/02/25 21:45 05/06/25 13:14 Hydralazine Hcl 25 Mg Tablet BY MOUTH 25 mg TIDWM DARWIN Administration Albumin Human 50 mls @ 999 mls/hr 05/03/25 15:31 Albutein IVPB 06/02/25 15:30 Q10M PRN HYPOTENSION Isosorbide Mononitrate 30 mg 05/04/25 16:10 05/06/25 09:01 Isosorbide Mononitrate 30 Mg Tab.Er.24h PO 30 mg QAM DARWIN Administration Lactulose 30 gm 05/03/25 09:00 05/06/25 13:14 Lactulose 20 Gm/30 Ml Udc PO 30 gm TID DARWIN Administration Levetiracetam 750 mg 05/02/25 21:45 05/06/25 09:01 Levetiracetam 250 Mg Tablet PO 750 mg Q12HR DARWIN Administration Lidocaine/Prilocaine 1 each 05/03/25 15:32 Lidocaine/Prilocaine Cream 2.5-2.5% Tube TOPICAL WITH DIALYSIS PRN for dialysis Protocol Melatonin 5 mg 05/05/25 21:00 05/05/25 20:41 Melatonin 5 Mg Tablet PO 5 mg HS DARWIN Administration Ondansetron HCl 4 mg 05/04/25 16:24 05/04/25 16:42 Ondansetron Inj 4 Mg/2 Ml Vial IV PUSH 4 mg Q6H PRN Administration Nausea And Vomiting Pantoprazole Sodium 40 mg 05/04/25 09:00 05/06/25 09:01 Pantoprazole 40 Mg Tablet PO 40 mg QAM DARWIN Administration Prochlorperazine Edisylate 10 mg 05/04/25 18:38 05/04/25 19:02 Prochlorperazine Edisylate 10 Mg/2 Ml Vial IV PUSH 10 mg Q6H PRN Administration Nausea And Vomiting Sevelamer Carbonate 800 - 1,600 mg 05/03/25 08:00 05/06/25 13:14 Sevelamer Carbonate 800 Mg Tablet PO 800 mg TIDWM DARWIN Administration Thiamine HCl 100 mg 05/03/25 09:00 05/06/25 09:00 Thiamine Hcl 100 Mg Tablet PO 100 mg QAM DARWIN Administration Radiology Results: ITS Impressions Chest X-Ray 05/02/25 16:01 Impression: CHF Head CT 05/02/25 16:17 Impression: 1. Motion artifact limits evaluation. No acute infarct or hemorrhage Carotid Doppler Study 05/03/25 15:26 Impression: 1.Right internal carotid artery: [Less than 50% stenosis 2.Left internal carotid artery: [Less than 50% stenosis 3.Vertebral arteries: Antegrade flow. Labs Labs: Laboratory Results - last 24 hr 05/06/25 05:27 WBC 2.8 L RBC 2.33 L Hgb 7.6 L Hct 23.4 L MCV 100.4 H MCH 32.6 MCHC 32.5 RDW 15.4 H Plt Count 21 L* MPV 10.5 H Immature Gran % (Auto) 0.7 H Neut % (Auto) 59.7 Lymph % (Auto) 26.1 [place] % (Auto) 8.5 Eos % (Auto) 4.6 H Baso % (Auto) 0.4 Lymph # (Auto) 0.[address] [place] # (Auto) 0.2 Eos # (Auto) 0.1 Baso # (Auto) 0.0 Abs Immat Gran (auto) 0.02 Absolute Neuts (auto) 1.7 Absolute Nucleated RBC 0.000 Nucleated RBC % 0.0 % Immature Plt Fraction 4.3 Sodium 133 L Potassium 4.3 Chloride 101 Carbon Dioxide 26 Anion Gap 6 BUN 33 H D Creatinine 6.78 H Estim Creat Clear Calc 11 Estimated GFR 8 L Glucose 100 Calcium 7.8 L Phosphorus 2.9 Total Bilirubin 1.7 H AST 23 ALT 16 Alkaline Phosphatase 127 H Total Protein 5.7 L Albumin 3.1 L
--- NOTE | 2025-05-06 15:13 | P.DS_ITS ---
DS: Admitting Diagnosis Discharge Date 05/06/2025 Admitting Diagnosis Hepatic encephalopathy DS: Discharge Diagnosis Discharge Diagnosis (1) Encephalopathy, hepatic: Code(s): K72.90 - Hepatic failure, unspecified without coma Status: Acute Assessment and Plan: * Elevated ammonia and likely medication noncompliance support hepatic encephalopathy * Wernicke encephalopathy is also a concern, but less likely without other findings * Sudden onset, rapid improvement, and prior MRI brain suggesting atherosclerosis elevate concern for stroke or TIA * Given chronic use of Keppra, partial seizure is also a concern * Given prior hx of AUD, current use of cannabis, check UDS-only positive for c annabinoids * Continue home regimen, thiamine, folic acid * 05/03 MRI brain and carotid dopplers ordered, carotid Doppler normal, MRI still pending * 05/05: Mental status significantly improved today aao x3, coherent (2) Cirrhosis, alcoholic: Qualifiers: Ascites presence: without ascites Qualified Code(s): K70.30 - Alcoholic cirrhosis of liver without ascites Code(s): K70.30 - Alcoholic cirrhosis of liver without ascites Status: Acute Assessment and Plan: * Reports abstaining from alcohol for over 2 years * Lab findings relatively stable from previously * Continue home regimen * Average making 2 bowel movements daily on lactulose (3) ESRD needing dialysis: Code(s): N18.6 - End stage renal disease; Z99.2 - Dependence on renal dialysis Status: Chronic Assessment and Plan: * Nephrology consulted for dialysis-Sunday schedule (4) Pancytopenia: Code(s): D61.818 - Other pancytopenia Status: Acute Assessment and Plan: * Likely related to alcoholic cirrhosis * Labs relatively stable from previously (5) Mitral insufficiency and aortic stenosis: Code(s): I08.0 - Rheumatic disorders of both mitral and aortic valves Status: Acute Assessment and Plan: * mild, MAC with insufficiency * Denied cardiac issues * 05/03 Echo ordered Plan DVT prophylaxis on Sq heparin DS: Summary Hospital Course Hospital Course: Patient is a 59-year-old male with history of alcohol abuse, pancytopenia, and he has renal disease on dialysis, cirrhosis, seizures who presented to the ED from dialysis for confusion. CT of the head was performed which show no acute findings. MRI of the brain was also performed which showed no acute findings. Chest x-ray showed moderate pulmonary venous congestion. Neurology Nephrology were consulted. Keppra was continued for seizures. Lactulose was initiated and patient did well. Upon arrival ammonia was elevated most likely due to noncompliance. Mental status is reported back to normal. Patient did have dialysis as well. Pancytopenia is noted however is chronic. Labs appear to be stable is in line with his chronicity. Echo also performed showing EF of 60-65% with abnormal diastolic function. Currently patient is doing well and is wanting to go home. He denies any chest pain, shortness a breath, nausea, vomiting diarrhea constipation. Patient has been eating meals and has been d oing well. Patient is stable for discharge for labs and vital signs. Status at Discharge Functional status at discharge: independent ambulation Overall status at discharge: patient is progressing back to baseline Time Spent with Patient Time attestation: Total time spent providing and/or coordinating discharge services: 48 minutes Time spent: Greater than 30 minutes Exam Narrative: HEENT: EOMI, PERRL, sclerae nonicteric, pharyngeal mucosa pink and intact NECK: No JVD, adenopathy, or thyromegaly, no carotid bruits CHEST: Clear to auscultation. Normal effort. HEART: NL S1/ S2, regular, 3/5 holosystolic murmur at apex radiating to axilla, soft JACOB RUSB w/o radiation ABDOMEN: BS+, soft, nontender, no mass, no bruits EXTREMITIES: No cyanosis, edema, or clubbing NEUROLOGIC: CN intact and symmetric to inspection, DTR's symmetric, Babinski's downgoing, no tremor MUSCULOSKELETAL: Tone and strength symmetric in UE's and LE's PSYCH: Alert. Oriented to person, place, and year DS: Data Data Completed and Pending Labs on day of discharge: Labs from last 24 hours 05/06/25 05:27 WBC 2.8 L RBC 2.33 L Hgb 7.6 L Hct 23.4 L MCV 100.4 H MCH 32.6 MCHC 32.5 RDW 15.4 H Plt Count 21 L* MPV 10.5 H Immature Gran % (Auto) 0.7 H Neut % (Auto) 59.7 Lymph % (Auto) 26.1 [place] % (Auto) 8.5 Eos % (Auto) 4.6 H Baso % (Auto) 0.4 Lymph # (Auto) 0.74 L [place] # (Auto) 0.2 Eos # (Auto) 0.1 Baso # (Auto) 0.0 Abs Immat Gran (auto) 0.02 Absolute Neuts (auto) 1.7 Absolute Nucleated RBC 0.000 Nucleated RBC % 0.0 % Immature Plt Fraction 4.3 Sodium 133 L Potassium 4.3 Chloride 101 Carbon Dioxide 26 Anion Gap 6 BUN 33 H D Creatinine 6.78 H Estim Creat Clear Calc 11 Estimated GFR 8 L Glucose 100 Calcium 7.8 L Phosphorus 2.9 Total Bilirubin 1.7 H AST 23 ALT 16 Alkaline Phosphatase 127 H Total Protein 5.7 L Albumin 3.1 L Preliminary micro results at discharge 05/02/25 23:31 Blood Culture - Preliminary Blood 05/02/25 23:29 Blood Culture - Preliminary Blood Discharge Plan Discharge Attending physician on discharge: Hitesh Amos Oca Consulting providers: Chitra Dill; Ryan Ace Discharging Clinician: Blue Salcido Patient Disposition: Home Activity: may shower, unlimited and as tolerated Diet: renal Discharge Instructions: * Take medications as prescribed * Maintain a cardiac diet, 2 g sodium, do not over hydrate * Remain active * Monitor urine output * Daily weights, if you gain more than 3 lb within 1 day or 5 lb in 1 week notify your primary care provider * If you develop chest pain, shortness breath, fever greater than 101, nausea, or vomiting notify a clinician or come to the emergency department * continue dialysis on scheduled days * Follow-up with primary care provider within 1 weeks * Thank you for [facility] for your healthcare needs Patient Instructions: Antibiotic Form, How to Stop Smoking (ED) Patient Language: Cymro Stand Alone Forms: General Discharge Information Follow-up/Referrals: Chitra Dill MD [Physician, Nephrology] Ryan Ace MD [Physician, Neurology] Efren Ramirez DO [Primary Care Provider, Internal Medicine] Discharge Medications: New thiamine HCl (vitamin B1) [Vitamin B-1] 100 mg Tablet 100 mg PO QAM Qty: 30 0RF pantoprazole 40 mg Tablet,Delayed Release (Dr/Ec) 40 mg PO QAM Qty: 30 0RF isosorbide mononitrate 30 mg Tablet Extended Release 24 Hr 30 mg PO QAM Qty: 30 0RF Continued melatonin 3 mg tablet 3 mg PO HS Rx Instructions: takes 3 tablets at HS levetiracetam 750 mg tablet 750 mg PO Q12H 30 Days Qty: 60 1RF sevelamer carbonate 800 mg tablet 800 mg PO .COMPLEX Patient Comments: 2 tablets tidwm and 1 tablet with a snack Rx Instructions: 800 mg orally; 1-2 tablets before meals amlodipine 5 mg tablet 5 mg PO DAILY folic acid 1 mg tablet 1 mg PO DAILY omeprazole 40 mg capsule,delayed release(DR/EC) 40 mg PO DAILY nadolol 20 mg tablet See Rx Instructions .ROUTE .COMPLEX Qty: 90 3RF Dose Instruction: TAKE 1 TABLET BY MOUTH EVERY DAY Rx Instructions: TAKE 1 TABLET BY MOUTH EVERY DAY lactulose 10 gram/15 mL solution 40 g PO TID Qty: 3000 11RF furosemide 80 mg tablet See Rx Instructions .ROUTE .COMPLEX Qty: 180 3RF Dose Instruction: TAKE 1 TABLET BY MOUTH TWICE DAILY Rx Instructions: TAKE 1 TABLET BY MOUTH TWICE DAILY hydralazine 25 mg tablet See Rx Instructions .ROUTE .COMPLEX Qty: 270 3RF Dose Instruction: TAKE 1 TABLET BY MOUTH THREE TIMES DAILY Rx Instructions: TAKE 1 TABLET BY MOUTH THREE TIMES DAILY Date of admission: 05/02/25 18:40 Primary Care Provider: Efren Ramirez Admitting Provider: Christopher Colvin Attending physician on admission: Christopher Colvin Condition: Guarded Prognosis Hospitalist MIPS Heart Failure (Exclusion) Patient has history of Heart Transplant or Left Ventricular Assistive Device?: Yes IF YES, STOP HERE Heart Failure (Qualifier) Patient has current or prior documentation of LVEF less than or equal to 40%, or mod/servere depressed LVSF?: No IF NO, STOP HERE
[2025-05-06] MEDS: EPOETIN ALFA-EPBX 10,000 UNITS/ML VIAL 10000 UNITS IV PUSH (15:57)
== END 2025-05-06 18:35 | disposition home or self-care (01) | DRG 441 ==
LOC: ANHED 19:33 → ANHIMU 19:58 → ANH3MEDSUR 05-06 15:12 → ANHIMU 05-07 13:39
PROVIDERS: General Practice; Internal Medicine; Internal Medicine Nephrology; Nurse Practitioner Gerontology; Admitting Provider Internal Medicine; Emergency Provider Registered Nurse; PCP Internal Medicine; Visit Provider Nurse Practitioner
DX: K72.90 Hepatic failure, unspecified without coma (principal); N18.6 End stage renal disease; D61.818 Other pancytopenia; K70.30 Alcoholic cirrhosis of liver without ascites; Z91.148 Patient's other noncompliance with medication regimen for other reason; G40.909 Epilepsy, unspecified, not intractable, without status epilepticus; N25.0 Renal osteodystrophy; D63.1 Anemia in chronic kidney disease; D63.8 Anemia in other chronic diseases classified elsewhere; F17.210 Nicotine dependence, cigarettes, uncomplicated; I08.0 Rheumatic disorders of both mitral and aortic valves; Z99.2 Dependence on renal dialysis
CPT/HCPCS: 36415; 36600; 70450; 70551; 71045; 80053; 80307; 81001; 82077; 82140; 82805; 82948; 83735; 84100; 85018; 85025; 85055; 85610; 85730; 86706; 87040; 87340; 87641; 93005; 93306; 93880; 97161; 97165; 99285; A9270; G0257; J0780; J2405; J2470; J3360; J7030; Q5105

== ENCOUNTER 2025-05-21 14:40 | Inpatient (IN) | payer MEDICARE, SELFPAY ==
[2025-05-21] VITALS (15 sets, daily range): BP systolic 157–202; BP diastolic 53–87; PULSE 53–75; RESP 10–15; TEMP 36.6; O2SAT 99–100; BMI 22.1
--- NOTE | ~2025-05-21 | CT_ITS ---
EXAMINATION: CT chest abdomen pelvis wo con DATE: 05/22/2025 14:16 INDICATION: Respiratory failure TECHNIQUE: Computed tomography (CT) of the chest, abdomen, and pelvis was performed with 100 mL Omnipaque-350 intravenous contrast. Automated exposure control and iterative reconstruction technique were employed. The dose-length product was 533.12 mGy-cm. COMPARISON: None FINDINGS: CHEST CT: Endotracheal tube tip 2.7 cm above the chaz. Patchy groundglass opacities and consolidation in the infrahilar and posterior basilar aspect of the bilateral lower lobes concerning for aspiration or pneumonia. Small left and trace right pleural effusions. Cardiomegaly with atherosclerotic coronary artery calcifications and possible coronary artery stenting. No pericardial effusion. Aortic valve calcification. Thoracic aorta is normal in caliber. No pathologically enlarged thoracic lymphadenopathy. Mild upper thoracic levocurvature with mild to moderate spondylosis. Old sternal fracture. ABDOMEN/PELVIS CT: Nasogastric tube tip in the stomach which is moderately distended with gas and small amount of fluid. Multiple gallstones filling the decompressed gallbladder. Liver surface nodularity suspicious for cirrhosis. Splenomegaly measuring 20 cm in craniocaudal length. Mural calcifications along markedly dilated left splenorenal collaterals which measure up to 3.5 cm in maximal diameter. Findings are consistent with portal venous hypertension secondary to cirrhosis. Pancreas and bilateral adrenal glands are normal. Moderate bilateral renal cortical atrophy. Mobile bilateral nonobstructing renal stones measuring up to 8 cm maximal diameter in the right kidney. No bowel obstruction. Bilateral fat-containing inguinal hernias, small in the left and moderate sized on the right. Small amount of scattered ascites throughout the abdomen and pelvis. No abscess or free intraperitoneal gas. No pathologically enlarged abdominal or pelvic lymphadenopathy. Mild lumbar and moderate lumbosacral spondylosis. IMPRESSION: 1. New patchy consolidation and groundglass opacities in the dependent bilateral lower lobes most consistent with aspiration and/or pneumonia. 2. Small left and tiny right pleural effusions. 3. Cardiomegaly. 4. Nodular cirrhotic liver with splenomegaly and markedly enlarged splenorenal collaterals consistent with secondary portal venous hypertension. 5. Small amount of ascites scattered throughout the abdomen and pelvis likely related to liver disease. 6. Bilateral nonobstructing nephrolithiasis. Reviewed, dictated and finalized at location A. T LINE SUPERVISOR IMPRESSION: 1. New patchy consolidation and groundglass opacities in the dependent bilatera l lower lobes most consistent with aspiration and/or pneumonia. 2. Small left and tiny right pleural effusions. 3. Cardiomegaly. 4. Nodular cirrhotic liver with splenomegaly and markedly enlarged splenorenal collaterals consistent with secondary portal venous hypertension. 5. Small amount of ascites scattered throughout the abdomen and pelvis likely r elated to liver disease. 6. Bilateral nonobstructing nephrolithiasis.
--- NOTE | ~2025-05-21 | XR_ITS ---
Examination: XR chest 1V portable Clinical History: Resp Failure Comparison: 1 day prior Technique: Portable AP Findings: ET tube, NG tube. Heart size upper limit of normal. Improving bibasilar opacities. No acute bony abnormality. IMPRESSION: 1. Improving bibasilar airspace disease. Reviewed, dictated and finalized at location R. TENANCE AIDE
--- NOTE | ~2025-05-21 | XR_ITS ---
EXAM/PROCEDURE: XR abdomen gastric tube insert HISTORY: ng insert COMPARISON: Tube placement TECHNIQUE: KUB FINDINGS: Gastric catheter placed with the tip in the mid body of the stomach. The stomach is borderline distended. No subphrenic free air seen. Loops of gas dilated possibly distended small bowel noted. IMPRESSION: Adequate placement of gastric catheter. Several loops of gas dilated possibly distended small bowel and distended appearance of the gastric bubble. Query if patient has presentation suggestive of ileus or obstruction. Reviewed, dictated and finalized at location A. GER FIXER IMPRESSION: Adequate placement of gastric catheter. Several loops of gas dilated possibly d istended small bowel and distended appearance of the gastric bubble. Query if p atient has presentation suggestive of ileus or obstruction.
--- NOTE | ~2025-05-21 | CT_ITS ---
EXAMINATION: CT chest, abdomen and pelvis without contrast: DATE: 05/21/2025. INDICATION: Altered mental status. TECHNIQUE: . The was performed through chest, abdomen and pelvis without contrast and reviewed in multiple projections. Radiation dose 492 mgycm.. COMPARISON: Chest x-ray dated 05/21/2025 FINDINGS: No acute pulmonary lesions. Minimal bilateral pleural effusion. Significant cardiomegaly with severe multivessel coronary artery calcifications. Calcific changes of aortic valve suggesting some degree of aortic stenosis. Below the diaphragm, contracted nodular liver is noted. Splenomegaly is noted measuring craniocaudal span of 20 cm. Moderate free fluid in the peritoneal cavity. Contracted gallbladder containing multiple gallstones. Pancreas shows no acute findings. Prominent venous varices are noted in the upper left abdomen. No obstructive changes of the kidneys. Bilateral nonobstructing calculi. Moderate free fluid in the pelvic cul-de-sac. IMPRESSION: 1. Severe cardiomegaly and severe multivessel coronary artery calcifications. Calcific changes of aortic valve cusps indicating some degree of aortic stenosis. Please correlate with echocardiographic findings. 2. Small bilateral pleural effusion. 3. Limited CT without IV contrast especially for solid viscera, neoplasms and vascular structures. 4. Contracted nodular liver and splenomegaly with prominent venous varices in the upper left abdomen. Moderate free fluid in the peritoneal cavity. Findings are suggestive of significant chronic liver disease with portal hypertension. Reviewed, dictated and finalized at location T. ONSCRIPT DEVELOPER IMPRESSION: 1. Severe cardiomegaly and severe multivessel coronary artery calcifications. C alcific changes of aortic valve cusps indicating some degree of aortic stenosis . Please correlate with echocardiographic findings. 2. Small bilateral pleural effusion. 3. Limited CT without IV contrast especially for solid viscera, neoplasms and v ascular structures. 4. Contracted nodular liver and splenomegaly with prominent venous varices in t he upper left abdomen. Moderate free fluid in the peritoneal cavity. Findings a re suggestive of significant chronic liver disease with portal hypertension.
--- NOTE | ~2025-05-21 | CT_ITS ---
CT HEAD NON-CONTRAST Clinical History: Altered mental status Comparison: CT brain 05/21/2025 Technique: Unenhanced axial images skull base to vertex Coronal, sagittal reformats CT images acquired with automatic exposure control for dose reduction DLP: 681 mGy-cm Findings: Sulci, ventricles: Unremarkable. No intracerebral hemorrhage. No evidence acute territorial infarct. No mass effect, midline shift. Bony calvarium intact. Visualized paranasal sinuses: Left maxillary disease. Mastoid air cells: Clear. IMPRESSION: 1. No acute intracranial findings. Reviewed, dictated and finalized at location R. KILN OPERATOR
--- NOTE | ~2025-05-21 | XR_ITS ---
Examination: XR chest 1V portable Clinical History: Resp Failure Comparison: 1 day prior Technique: Portable AP Findings: ET tube, NG tube. Heart size normal. Worsening bibasilar airspace opacities. No sizable effusion or pneumothorax. No acute bony abnormality. IMPRESSION: 1. Worsening bibasilar airspace disease. Reviewed, dictated and finalized at location R. MAN
--- NOTE | ~2025-05-21 | CT_ITS ---
EXAMINATION: CT brain wo con DATE: 05/21/2025 15:12 INDICATION: Altered mental status TECHNIQUE: Computed tomography (CT) of the head was performed without intravenous contrast. The dose-length product was 681.00 mGy-cm. COMPARISON: May 02, 2025 as well as October [id number] FINDINGS: No gross intracranial mass effect or hemorrhage. No large acute ischemic event. Prominent bifrontal subdural space not grossly changed. Calvarial structures appear intact. IMPRESSION: 1. Stable exam compared to previous studies. 2. No gross intracranial mass effect or hemorrhage. Reviewed, dictated and finalized at location A. RONMENTAL PROTECTION SPECIALIST
--- NOTE | ~2025-05-21 | XR_ITS ---
EXAM/PROCEDURE: XR chest ET placement HISTORY: After intubation to confirm ET placement COMPARISON: May 21 chest x-ray TECHNIQUE: Portable chest FINDINGS: Endotracheal tube placed with tip about 4.5 cm above the chaz mid trachea. Gastric catheter with tip extending off the inferior field of view. Lungs are clear. No mani pulmonary edema or large effusion. No pneumothorax or subphrenic free air seen. IMPRESSION: Endotracheal tube in good position. Gastric catheter is also been placed. The lungs appear clear. Reviewed, dictated and finalized at location A. GEMENT SERVICES TECHNICIAN IMPRESSION: Endotracheal tube in good position. Gastric catheter is also been placed. The l ungs appear clear.
--- NOTE | ~2025-05-21 | XR_ITS ---
EXAMINATION: XR chest 1V portable DATE: 05/21/2025 18:04 INDICATION: Altered mental status. TECHNIQUE: A single frontal view of the chest was obtained. COMPARISON: Chest x-ray 05/02/2025 FINDINGS: Cardiomegaly and atherosclerotic aorta. No definite acute pulmonary lesions. Increased vascular markings of lungs. IMPRESSION: 1. Cardiomegaly, atherosclerotic aorta and mild vascular congestion of the lungs. Reviewed, dictated and finalized at location T. CULTURIST IMPRESSION: 1. Cardiomegaly, atherosclerotic aorta and mild vascular congestion of the lung s.
--- NOTE | ~2025-05-21 | XR_ITS ---
XR chest 1V portable 05/25/2025 05:36 Indication: Respiratory failure Procedure: AP portable chest Comparison: Comparison to multiple prior studies sequentially, with oldest reviewed study dated 05/21/2025. Findings: Borderline heart size. Developing mild interstitial edema. No pleural effusion or pneumothorax. No acute osseous abnormality. Impression: 1: Developing mild interstitial edema. Reviewed, dictated and finalized at location O. L TILE SETTER Impression: 1: Developing mild interstitial edema.
--- NOTE | 2025-05-21 14:55 | ECG_ITS ---
Test Date: 2025-05-21 15:02:48 Measurements Intervals [place] Rate: 67 P: 61 CT: 297 QRS: 38 QRSD: 107 T: 55 QT: 482 QTc: 512 Interpretive Statements SINUS RHYTHM WITH FIRST DEGREE AV BLOCK POSSIBLE RIGHT VENTRICULAR CONDUCTION DELAY [RSR (QR) IN V1/V2] PROLONGED QT INTERVAL Compared to ECG 05/02/2025 16:47:42 CT INTERVAL IS LONGER, NO OTHER CHANGE Electronically Signed On 05-22-2025 07:47:54 [employer] by Kiko Smith M.D.
--- NOTE | 2025-05-21 16:13 | PC.NURSE ---
straight catheter was done, no urine output was in the catheter bag.
[2025-05-21 16:24] LABS: Hematocrit 28.3 % (42.0-52.0); Hemoglobin 9.3 g/dL (14.0-18.0); Immature Granulocyte Percent A 0.5 % (0-0.5); Immature Platelet Fraction Pct 2.0 % (0.9-11.2); Lymphocytes Absolute Auto 0.91 K/mm3 (0.9-3.2); Mean Corpuscular HGB Conc 32.9 g/dl (32-36); Mean Corpuscular Hemoglobin 32.7 pg (26-34); Mean Corpuscular Volume 99.6 fl (80-100); Nucleated Red Blood Cells Absolute Auto 0.000 K/mm3 (0.0-0.012); Nucleated Red Blood Cells Perc 0.0 % (0.0-0.2); Platelet Count Result 37 k/mm3 (150-375); Red Blood Count 2.84 M/mm3 (4.6-6.20); White Blood Count 3.9 K/mm3 (4.5-10.0)
[2025-05-21 16:37] LABS: Alanine Aminotransferase 14 U/L (6-50); Albumin Level 3.7 g/dL (3.5-5.1); Alkaline Phosphatase 124 U/L (38-126); Anion Gap 17 mmol/L (4-12); Aspartate Amino Transferase 18 U/L (17-59); Bilirubin,Total 1.7 mg/dL (0.2-1.3); Blood Urea Nitrogen 107 mg/dL (9-20); Calcium 7.6 mg/dL (8.4-10.2); Carbon Dioxide 20 mmol/L (22-30); Chloride 99 mmol/L (98-107); Estimated CRCL calculation 6 ml/min; Estimated Glomerular Filt Rate 4; Glucose 102 mg/dL (65-110); INR 1.6; Potassium 5.8 mmol/L (3.4-5.0); Prothrombin Time 19.2 Seconds (11.1-14.7); Sodium 136 mmol/L (137-145); Total Protein 6.6 g/dL (6.3-8.2)
[2025-05-21 16:38] LABS: Partial Thromboplastin Time 36.4 Seconds (22.3-36.8)
[2025-05-21 16:45] LABS: Anisocytosis 1+; Schistocytes None Seen
[2025-05-21 16:48] LABS: Ammonia 167 umol/L (9-30)
--- NOTE | 2025-05-21 17:31 | ED.GENADULT ---
HPI - General Adult General Chief complaint: Altered Mental Status <CLAUDIA Weston - Last Filed: 05/22/25 03:06> Stated complaint: ALOC <CLAUDIA Weston - Last Filed: 05/22/25 03:06> Time Seen by Provider: 05/21/25 17:33 <CLAUDIA Weston - Last Filed: 05/22/25 03:06> History of Present Illness HPI narrative: This is a 59-year-old male presenting to the ER with altered mental status after having missed his last 2 dialysis appointments. His friend is present in the room with him. Friend reports that yesterday he received a text from the patient stating that he was sick and was vomiting. Friend reports checking on the patient today stating that he was altered and then called an ambulance. Patient is responding at time of exam but is unable to answer simple questions or follow simple commands. His medical chart indicates a history of seizures, HTN, and recieves dialysis. Patient's friend reports of history of genetic kidney disease and liver failure stating that he is on the transplant list. He sees Dr. Dill with Nephrology. Last known well was yesterday. <CLAUDIA Weston - Last Filed: 05/22/25 03:06> Related Data Home medications: Home Medications ?Medication ?Instructions ?Recorded ?Confirmed ?Last Taken ?Type melatonin 3 mg tablet 9 mg PO HS Sleep 03/27/24 05/22/25 04/30/25 21:00 History 9 mg amlodipine 5 mg tablet 5 mg PO DAILY 10/13/24 05/22/25 05/02/25 History sevelamer carbonate 800 mg tablet 800 mg PO .COMPLEX 10/13/24 05/22/25 Unknown History omeprazole 40 mg capsule,delayed 40 mg PO DAILY 05/02/25 05/22/25 Unknown History release <CLAUDIA Weston - Last Filed: 05/22/25 03:06> Allergies/adverse reactions: Allergies Allergy/AdvReac Type Severity Reaction Status Date / Time No Known Allergies Allergy Unknown Verified 05/21/25 23:44 <CLAUDIA Weston - Last Filed: 05/22/25 03:06> PMFSH Past Medical History Medical History: Medical History (Updated 05/22/25 @ 01:32 by Verenice García APRN) Acute hyperkalemia Mitral insufficiency and aortic stenosis Esophageal varices in alcoholic cirrhosis Facial hematoma Pancytopenia Seizure Cirrhosis, alcoholic Acute respiratory failure Cirrhosis Renal osteodystrophy Erythropoietin deficiency anemia Thrombocytopenia Coagulopathy Encephalopathy, hepatic Alcoholic liver failure ESRD needing dialysis <CLAUDIA Weston - Last Filed: 05/22/25 03:06> Surgical History Surgical History: Surgical History (Updated 05/22/25 @ 01:22 by Verenice García APRN) H/O arthroscopic knee surgery Bilateral knees H/O right knee surgery Hx of hernia repair H/O cataract removal with insertion of prosthetic lens History of vasectomy Status post biopsy of kidney <CLAUDIA Weston - Last Filed: 05/22/25 03:06> Family History Family History: Family History Father Colon cancer Dementia Diabetes mellitus Mother Aneurysm <CLAUDIA Weston - Last Filed: 05/22/25 03:06> Social History Social History: Social History (Updated 05/22/25 @ 01:23 by Verenice García APRN) Social History: The patient is single. 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 He has a daughter Deloris who is listed as his emergency contact. Code status: Full code Smoking packs per day: 2.5 Smoking cigarettes per day: 50.0 Years smoked: 43 Smoking pack-years: 107.50 Smoking status: Unknown if ever smoked Tobacco type: cigarettes Alcohol intake: former Alcohol use details: none since04/11/21 Substance use: never Substance use type: marijuana Other substance usage details: gummies Do You Feel Safe in your Home?: Yes Lack of Transportation: No Lack of Food: Never True Current Housing: I Have Housing Concerned About Future Housing: No Difficulty Paying Gas/Electric Bills: No Difficulty Paying for Meds: No Currently Unemployed: No Education: Master's Degree or Higher Difficulty w/ Childcare or Family Care: No Spiritual care concerns: No <CLAUDIA Weston - Last Filed: 05/22/25 03:06> Exam Narrative: GENERAL: Ill and altered HEAD: Normocephalic, atraumatic. EYES: Pupils reactive to light, cannot follow commands, mild kernicterus ENT: Nares clear, no rhinorrhea or epistaxis. Mucous membranes moist. Oropharynx without tonsillar hypertrophy exudate or other lesions. Bilateral TMs pearly grace non-bulging NECK: Supple. No adenopathy or masses. No carotid bruits or JVD CHEST: Slow respirations, bilateral crackles HEART: Murmur heard. Normal peripheral pulses. ABDOMEN: Tenderness in all quadrants EXTREMITIES: Unable to move extremities SKIN: Diaphoretic, pale NEURO: Not alert or oriented, GCS 8 PSYCH: Altered <CLAUDIA Weston - Last Filed: 05/22/25 03:06> Course FABRICATION WELDER/PA Physician Supervision This visit was performed by both a physician and an APC. I performed all aspects of the MDM as documented. <Emerson Guillen MD - Last Filed: 05/21/25 22:57> Vital Signs Vital signs: Vital Signs Temperature 97.8 F 05/21/25 14:38 Pulse Rate 72 05/21/25 14:38 Respiratory Rate 12 05/21/25 14:38 Blood Pressure 192/85 H 05/21/25 14:38 Pulse Oximetry 100 05/21/25 14:38 Oxygen Delivery Room Air 05/21/25 14:38 Temperature 97.5 F L 05/22/25 00:00 Pulse Rate 64 05/22/25 00:00 Respiratory Rate 16 05/22/25 00:00 Blood Pressure 187/60 H 05/22/25 00:00 Pulse Oximetry 100 05/22/25 00:00 Oxygen Delivery Room Air 05/22/25 00:00 <CLAUDIA Weston - Last Filed: 05/22/25 03:06> Vital Signs Temperature 97.8 F 05/21/25 14:38 Pulse Rate 72 05/21/25 14:38 Respiratory Rate 12 05/21/25 14:38 Blood Pressure 192/85 H 05/21/25 14:38 Pulse Oximetry 100 05/21/25 14:38 Oxygen Delivery Room Air 05/21/25 14:38 Temperature 97.5 F L 05/22/25 00:00 Pulse Rate 64 05/22/25 00:00 Respiratory Rate 16 05/22/25 00:00 Blood Pressure 187/60 H 05/22/25 00:00 Pulse Oximetry 100 05/22/25 00:00 Oxygen Delivery Room Air 05/22/25 00:00 <Emerson Guillen MD - Last Filed: 05/21/25 22:57> Medical Decision Making MDM Narrative Medical decision making narrative: This is a 59-year-old male presenting to the ER with altered mental status after having missed his last 2 dialysis appointments. His friend is present in the room with him. Friend reports that yesterday he received a text from the patient stating that he was sick and was vomiting. Friend reports checking on the patient today stating that he was altered and then called an ambulance. Patient is responding at time of exam but is unable to answer simple questions or follow simple commands. His medical chart indicates a history of seizures, HTN, and receives dialysis. Patient's friend reports a history of genetic kidney disease and liver failure stating that he is on the transplant list. He sees Dr. Dill with Nephrology. Last known well according to friend was last night. Patient's ammonia is 167. Platelet levels 37 consistent with his baseline, pancytopenia. CT head demonstrates stable exam compared to previous studies. No gross intracranial mass effect or hemorrhage. Hyperkalemic at 5.8. Peaked T waves on EKG. Medications ordered include: oral lactulose, calcium gluconate, insulin and dextrose with hypoglycemic orders also in place, bicarb, and Lokelma. CT chest, abdomen, pelvis demonstrated Severe cardiomegaly and severe multivessel coronary artery calcifications. Calcific changes of aortic valve cusps indicating some degree of aortic stenosis. Please correlate with echocardiographic findings. 2. Small bilateral pleural effusion. 3. Limited CT without IV contrast especially for solid viscera, neoplasms and vascular structures. 4. Contracted nodular liver and splenomegaly with prominent venous varices in the upper left abdomen. Moderate free fluid in the peritoneal cavity. Findings are suggestive of significant chronic liver disease with portal hypertension. Dr. Emerson Guillen discussed with General Utility Maintenance Repairer Dr. Dill patient presentation and workup. Agrees with admission at this time. Plan to dialyze tomorrow. Discussed with hospitalist SHELBI Caldera patient presentation and workup. Also agrees with admission at this time. Recommends beginning antibiotics for prophylactic treatment of spontaneous bacterial peritonitis. Pending bed. <CLAUDIA Weston - Last Filed: 05/22/25 03:06> Medical Records Medical records reviewed: Yes I reviewed the external patient's medical records. <CLAUDIA Weston - Last Filed: 05/22/25 03:06> Vital Signs Vital Signs: Vital Signs Temperature 97.8 F 05/21/25 14:38 Pulse Rate 72 05/21/25 14:38 Respiratory Rate 12 05/21/25 14:38 Blood Pressure 192/85 H 05/21/25 14:38 Pulse Oximetry 100 05/21/25 14:38 Oxygen Delivery Room Air 05/21/25 14:38 Temperature 97.5 F L 05/22/25 00:00 Pulse Rate 64 05/22/25 00:00 Respiratory Rate 16 05/22/25 00:00 Blood Pressure 187/60 H 05/22/25 00:00 Pulse Oximetry 100 05/22/25 00:00 Oxygen Delivery Room Air 05/22/25 00:00 <CLAUDIA Weston - Last Filed: 05/22/25 03:06> Vital Signs Temperature 97.8 F 05/21/25 14:38 Pulse Rate 72 05/21/25 14:38 Respiratory Rate 12 05/21/25 14:38 Blood Pressure 192/85 H 05/21/25 14:38 Pulse Oximetry 100 05/21/25 14:38 Oxygen Delivery Room Air 05/21/25 14:38 Temperature 97.5 F L 05/22/25 00:00 Pulse Rate 64 05/22/25 00:00 Respiratory Rate 16 05/22/25 00:00 Blood Pressure 187/60 H 05/22/25 00:00 Pulse Oximetry 100 05/22/25 00:00 Oxygen Delivery Room Air 05/22/25 00:00 <Emerson Guillen MD - Last Filed: 05/21/25 22:57> Lab Data Lab results reviewed: Yes I reviewed the patient's lab results. <CLAUDIA Weston - Last Filed: 05/22/25 03:06> Result diagrams: 05/21/25 16:10 05/22/25 00:54 <CLAUDIA Weston - Last Filed: 05/22/25 03:06> Labs: Lab Results 05/21/25 05/21/25 Range/Units 16:10 19:38 WBC 3.9 L (4.5-10.0) K/mm3 RBC 2.84 L (4.6-6.20) M/mm3 Hgb 9.3 L (14.0-18.0) g/dL Hct 28.3 L (42.0-52.0) % MCV 99.6 (80-100) fl MCH 32.7 (26-34) pg MCHC 32.9 (32-36) g/dl RDW 15.8 H (11.5-14.5) % Plt Count 37 L D (150-375) k/mm3 MPV 11.0 H (7.4-10.4) fl Immature Gran % (Auto) 0.5 (0-0.5) % Neut % (Auto) 66.8 (45.5-73.1) % Lymph % (Auto) 23.3 (18.3-44.2) % [place] % (Auto) 6.6 (2.6-8.5) % Eos % (Auto) 2.3 (0-4.4) % Baso % (Auto) 0.5 (0.2-1.2) % Lymph # (Auto) 0.91 (0.9-3.2) K/mm3 [place] # (Auto) 0.3 (0.1-0.6) K/mm3 Eos # (Auto) 0.1 (0-0.3) K/mm3 Baso # (Auto) 0.0 (0.0-0.1) K/mm3 Abs Immat Gran (auto) 0.02 (0.00-0.031) K/mm3 Absolute Neuts (auto) 2.6 (1.3-6.7) K/mm3 Absolute Nucleated RBC 0.000 (0.0-0.012) K/mm3 Band Neutrophils % Not Reportable Nucleated RBC % 0.0 (0.0-0.2) % Platelet Estimate Decreased (Adequate) % Immature Plt Fraction 2.0 (0.9-11.2) % Anisocytosis 1+ Schistocytes None seen PT 19.2 H (11.1-14.7) Seconds INR 1.6 APTT 36.4 (22.3-36.8) Seconds Sodium 136 L (137-145) mmol/L Potassium 5.8 H (3.4-5.0) mmol/L Chloride 99 (98-107) mmol/L Carbon Dioxide 20 L (22-30) mmol/L Anion Gap 17 H (4-12) mmol/L BUN 107 H* D (9-20) mg/dL Creatinine 12.08 H (0.7-1.3) mg/dL Estim Creat Clear Calc 6 ml/min Estimated GFR 4 L (59 - ) Glucose 102 (65-110) mg/dL POC Capillary Glucose 156 H (65-105) mg/dl Calcium 7.6 L (8.4-10.2) mg/dL Phosphorus 5.3 H (2.5-4.5) mg/dL Magnesium 3.0 H (1.6-2.3) mg/dL Total Bilirubin 1.7 H (0.2-1.3) mg/dL AST 18 (17-59) U/L ALT 14 (6-50) U/L Alkaline Phosphatase 124 (38-126) U/L Ammonia 167 H (9-30) umol/L Total Protein 6.6 (6.3-8.2) g/dL Albumin 3.7 (3.5-5.1) g/dL <CLAUDIA Weston - Last Filed: 05/22/25 03:06> Lab Results 05/21/25 05/21/25 Range/Units 16:10 19:38 WBC 3.9 L (4.5-10.0) K/mm3 RBC 2.84 L (4.6-6.20) M/mm3 Hgb 9.3 L (14.0-18.0) g/dL Hct 28.3 L (42.0-52.0) % MCV 99.6 (80-100) fl MCH 32.7 (26-34) pg MCHC 32.9 (32-36) g/dl RDW 15.8 H (11.5-14.5) % Plt Count 37 L D (150-375) k/mm3 MPV 11.0 H (7.4-10.4) fl Immature Gran % (Auto) 0.5 (0-0.5) % Neut % (Auto) 66.8 (45.5-73.1) % Lymph % (Auto) 23.3 (18.3-44.2) % [place] % (Auto) 6.6 (2.6-8.5) % Eos % (Auto) 2.3 (0-4.4) % Baso % (Auto) 0.5 (0.2-1.2) % Lymph # (Auto) 0.91 (0.9-3.2) K/mm3 [place] # (Auto) 0.3 (0.1-0.6) K/mm3 Eos # (Auto) 0.1 (0-0.3) K/mm3 Baso # (Auto) 0.0 (0.0-0.1) K/mm3 Abs Immat Gran (auto) 0.02 (0.00-0.031) K/mm3 Absolute Neuts (auto) 2.6 (1.3-6.7) K/mm3 Absolute Nucleated RBC 0.000 (0.0-0.012) K/mm3 Band Neutrophils % Not Reportable Nucleated RBC % 0.0 (0.0-0.2) % Platelet Estimate Decreased (Adequate) % Immature Plt Fraction 2.0 (0.9-11.2) % Anisocytosis 1+ Schistocytes None seen PT 19.2 H (11.1-14.7) Seconds INR 1.6 APTT 36.4 (22.3-36.8) Seconds Sodium 136 L (137-145) mmol/L Potassium 5.8 H (3.4-5.0) mmol/L Chloride 99 (98-107) mmol/L Carbon Dioxide 20 L (22-30) mmol/L Anion Gap 17 H (4-12) mmol/L BUN 107 H* D (9-20) mg/dL Creatinine 12.08 H (0.7-1.3) mg/dL Estim Creat Clear Calc 6 ml/min Estimated GFR 4 L (59 - ) Glucose 102 (65-110) mg/dL POC Capillary Glucose 156 H (65-105) mg/dl Calcium 7.6 L (8.4-10.2) mg/dL Phosphorus 5.3 H (2.5-4.5) mg/dL Magnesium 3.0 H (1.6-2.3) mg/dL Total Bilirubin 1.7 H (0.2-1.3) mg/dL AST 18 (17-59) U/L ALT 14 (6-50) U/L Alkaline Phosphatase 124 (38-126) U/L Ammonia 167 H (9-30) umol/L Total Protein 6.6 (6.3-8.2) g/dL Albumin 3.7 (3.5-5.1) g/dL <Emerson Guillen MD - Last Filed: 05/21/25 22:57> ABG Data ABG results: 05/21/25 17:57 Puncture Site Right radial ABG pH 7.439 ABG pCO2 29.8 L ABG pO2 92.5 ABG PO2/FiO2 Ratio 4.40 ABG HCO3 19.7 L ABG O2 Saturation 97.4 ABG O2 Content 13.7 L ABG Base Excess -3.6 A-a Gradient 21.5 Oxyhemoglobin 93.9 Total Hemoglobin 10.3 L O2 Delivery Device Not Reportable O2 Liters/Min Not Reportable FiO2 21 <CLAUDIA Weston - Last Filed: 05/22/25 03:06> 05/21/25 17:57 Puncture Site Right radial ABG pH 7.439 ABG pCO2 29.8 L ABG pO2 92.5 ABG PO2/FiO2 Ratio 4.40 ABG HCO3 19.7 L ABG O2 Saturation 97.4 ABG O2 Content 13.7 L ABG Base Excess -3.6 A-a Gradient 21.5 Oxyhemoglobin 93.9 Total Hemoglobin 10.3 L O2 Delivery Device Not Reportable O2 Liters/Min Not Reportable FiO2 21 <Emerson Guillen MD - Last Filed: 05/21/25 22:57> Attestation: I personally reviewed and interpreted this ABG as follows: <CLAUDIA Weston - Last Filed: 05/22/25 03:06> Imaging Data Attestation: I personally reviewed and interpreted this imaging study as follows: <CLAUDIA Weston - Last Filed: 05/22/25 03:06> Radiologist's impression: ITS Impressions Head CT 05/21/25 15:13 IMPRESSION: 1. Stable exam compared to previous studies. 2. No gross intracranial mass effect or hemorrhage. Chest X-Ray 05/21/25 18:11 IMPRESSION: 1. Cardiomegaly, atherosclerotic aorta and mild vascular congestion of the lungs. Chest/Abdomen/Pelvis CT 05/21/25 19:21 IMPRESSION: 1. Severe cardiomegaly and severe multivessel coronary artery calcifications. Calcific changes of aortic valve cusps indicating some degree of aortic stenosis. Please correlate with echocardiographic findings. 2. Small bilateral pleural effusion. 3. Limited CT without IV contrast especially for solid viscera, neoplasms and vascular structures. 4. Contracted nodular liver and splenomegaly with prominent venous varices in the upper left abdomen. Moderate free fluid in the peritoneal cavity. Findings are suggestive of significant chronic liver disease with portal hypertension. <CLAUDIA Weston - Last Filed: 05/22/25 03:06> ECG Data EKG #1: ECG completion date: 05/21/25 <CLAUDIA Weston Last Filed: 05/22/25 03:06> ECG completion time: 15:02 <CLAUDIA Weston - Last Filed: 05/22/25 03:06> EKG Interpretation: normal rate, sinus rhythm and other (Peaked T waves) <CLAUDIA Weston - Last Filed: 05/22/25 03:06> Discharge Plan Discharge Clinical Impression: Acute hyperkalemia, AMS (altered mental status), ESRD needing dialysis, Alcoholic liver failure, Hyperammonemia <CLAUDIA Weston Last Filed: 05/22/25 03:06> Patient Disposition: Still a Patient <CLAUDIA Weston Last Filed: 05/22/25 03:06> Condition: Serious <CLAUDIA Wetson Last Filed: 05/22/25 03:06>
[2025-05-21 18:08] LABS: Alveolar/Arterial O2 Gradient 21.5 mmHg; Fractional Inspired Oxygen 21 %; HCO3 ABG 19.7 mEq/l (22.0-26.0); Oxygen Content ABG 13.7 %vol (16.0-22.0); Oxygen Saturation ABG 97.4 % (95.0-100.0); PCO2 ABG 29.8 mmHg (35.0-45.0); PO2 ABG 92.5 mmHg (80.0-100.0); PO2 FiO2 Ratio Arterial Blood 4.40 %
[2025-05-21 18:09] LABS: Modified Allen's Test Pass; Site Drawn RIGHT RADIAL
[2025-05-21 18:11] LABS: Magnesium 3.0 mg/dL (1.6-2.3)
--- OUTSIDE RECORDS SUMMARY | 2025-05-21 18:25 | XMS_ITS ---
Author Organization [facility] Address [address] [place] [address] Care Team Providers Care Continuous Absorption Process Operator Name Role Phone Dm Pena MD Primary Care Provider + [phone] Hermelindo Avilez MD Unavailable [phone] Milla Calero RN Unavailable [phone] Melecio Graves MD Unavailable [phone] Nupur Shea RN Unavailable Unavailabl e Transplant Episode Kidney Candidate 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
--- OUTSIDE RECORDS SUMMARY | 2025-05-21 18:25 | XMS_ITS | Encounter Summary ---
Author Organization [facility] Health Address [address] [place] [address] Care Team Providers Care Examination Proctor Name Role Phone Dm Pena MD Primary Care Provider Efren Ramirez DO Primary Care Provider Encounter Details Date Type Department Care Team (Late st Contact Info) Description 01/26/[address] [facility] ANESTHESIA [address] [place] [address] Levi Candelario, DO [address] [facility] [address] [place] [address] Anesthesia Record Procedure Summary Procedure [...] as of this encounter Functional Status * Functional and Cognitive Status Question Answer Date of Assessment Author Is person deaf or have anne-marie us hearing difficulty? No 01/28/2019 3:04 PM CDT Julianna Sung RN Is person blind or have serious difficulty seeing? No 01/28/2019 3:04 PM CDT Julianna Sung RN Does person have serious difficulty walking/climbing stairs? No 01/28/2019 3:04 PM CDT Julianna Sung RN Does person have difficulty dressing/bathing? No 01/28/2019 3:04 PM CDT Julianna Sung RN Does person have difficulty doing errands alone? No 01/28/2019 3:04 PM CDT Claudia Sung RN Does person have difficulty concentrating/remembering/mathew ng decisions? No 01/28/2019 3:04 PM CDT Julianna Sung RN * Is person deaf or have serious [...] Entry Date Author No 01/24/2019 2:51 AM CDT Shashi Mejia RN documented in this encounter Plan of Treatment Not on file documented as of this encounter Visit Diagnoses Not on filedocumented in this encounter Additional Health Concerns Infection Onset Date Last Indicated Resolved Time COVID-19 Under Investigation 09/20/2020 09/20/2020 09/20/2020 10:10 PM CDT COVID-19 Under Investigation 07/19/2021 07/19/2021 07/19/2021 1:09 PM STAFFING PROGRAM MANAGER COVID-19 Confirmed 07/19/2021 07/19/2021 4:33 AM STAFFING PROGRAM MANAGER COVID-19 Under Investigation 10/29/2023 10/29/2023 10/29/2023 9:28 AM CDT COVID-19 Under Investigation 09/22/2024 09/22/2024 09/22/2024 12:05 PM CDT documented as of this encounter Care Teams Examination Proctor Relationship Specialty Start Date End Date Dm Pena MD [address] [address] PCP - General Family Medicine 02/06/19 06/11/24 Efren Ramirez DO [address] [place] [address] PCP - General Internal Medicine 06/12/24 documented as of this encounter
--- OUTSIDE RECORDS SUMMARY | 2025-05-21 18:25 | XMS_ITS | Encounter Summary ---
Author Organization [facility] Health Address [address] [place] [address] Care Team Providers Care Liquid Natural Gas Plant Operator Name Role Phone Dm Pena MD Primary Care Provider Efren Ramirez DO Primary Care Provider Encounter Details Date Type Department Care Team (Late st Contact Info) Description 07/15/2019 Pre-evaluation Visit [facility] PT [address] [place] [id number] Allie Noland, PT Social History Tobacco Use [...] Entry Date Author No 04/18/2019 6:40 PM CDT Amina Hayes RN documented in this encounter Plan of Treatment Not on file documented as of this encounter Visit Diagnoses Not on filedocumented in this encounter Additional Health Concerns Infection Onset Date Last Indicated Resolved Time COVID-19 Under Investigation 09/20/2020 09/20/2020 09/20/2020 10:10 PM CDT COVID-19 Under Investigation 07/19/2021 07/19/2021 07/19/2021 1:09 PM CLAMP FORKLIFT OPERATOR COVID-19 Confirmed 07/19/2021 07/19/2021 4:33 AM CLAMP FORKLIFT OPERATOR COVID-19 Under Investigation 10/29/2023 10/29/2023 10/29/2023 9:28 AM CDT COVID-19 Under Investigation 09/22/2024 09/22/2024 09/22/2024 12:05 PM CDT documented as of this encounter Care Teams Liquid Natural Gas Plant Operator Relationship Specialty Start Date End Date Dm Pena MD [address] [address] PCP - General Family Medicine 02/06/19 06/11/24 Efren Ramirez DO [address] [place] [address] PCP - General Internal Medicine 06/12/24 documented as of this encounter
--- OUTSIDE RECORDS SUMMARY | 2025-05-21 18:25 | XMS_ITS | Encounter Summary ---
Author Organization [facility] Health Address [address] [facility] [place] [address] Care Team Providers Care On Site Property Manager Name Role Phone Dm Pena MD Primary Care Provider Efren Ramirez DO Primary Care Provider Encounter Details Date Type Department Care Team (Late st Contact Info) Description 03/09/2020 Telephone [facility] [address] [place] [address] Kiko Pena MD [address] [address] Social History Tobacco Use Types Packs/Day Years [...] Under Investigation 07/19/2021 07/19/2021 07/19/2021 1:09 PM PHOTOENGRAVING MACHINE OPERATOR/TENDER COVID-19 Confirmed 07/19/2021 07/19/2021 4:33 AM PHOTOENGRAVING MACHINE OPERATOR/TENDER COVID-19 Under Investigation 10/29/2023 10/29/2023 10/29/2023 9:28 AM CDT COVID-19 Under Investigation 09/22/2024 09/22/2024 09/22/2024 12:05 PM CDT documented as of this encounter Care Teams On Site Property Manager Relationship Specialty Start Date End Date Dm Pena MD [address] [address] PCP - General Family Medicine 02/06/19 06/11/24 Efren Ramirez DO [address] [place] [id number] PCP - General Internal Medicine 06/12/24 documented as of this encounter
--- OUTSIDE RECORDS SUMMARY | 2025-05-21 18:25 | XMS_ITS ---
Author Organization [facility] Address [address] [place] [address] Care Team Providers Care Damaged Freight Inspector Name Role Phone Dm Pena MD Primary Care Provider + [phone] Hermelindo Avliez MD Unavailable [phone] Milla Calero RN Unavailable Melecio Graves MD Unavailable Nupur Shea RN Unavailable Unavailabl e Transplant Episode Liver Candidate [facility] ([place], [place]) - [facility] Evaluation began on 09/30/2024 Marked as Active on 09/30/2024 Reason: Evaluation - Standard Liver CoordinatorMilla Calero RN Fax: N/A Email: N/A [place] Organ Diagnosis Organ Primary Contributory Liver Alcoholic Cirrhosis Care Team Name Role Phone Fax Email Milla Calero RN Liver Coordinator [phone] N/A N/A Melecio Graves MD Referring Physician [phone] N/A Mckenzie Ibarra Primary Store Person N/A N/A N/A Sena Luque Desk Clerk [phone] N/A N/A Cyndi Maxwell RN Secondary Coordinator [phone] N/A Events Pre-Transplant Referred: 09/10/2024 Evaluation began: 09/30/2024 Dialysis History Dialysis History Start End Type Comments Center 03/14/2019 In-center Hemodialysis MWF 5:30AM-9A M [facility] Dialysis Center Information Center Phone Fax Address [facility] [phone] [address] [facility] [id number]
--- OUTSIDE RECORDS SUMMARY | 2025-05-21 18:25 | XMS_ITS | Encounter Summary ---
Author Organization [facility] Address [facility] [place] [address] Care Team Providers Care Mission Assessment Specialist Name Role Phone Lonnie Schaefer DO Primary Care Provider Dm Pena MD Primary Care Provider [phone] Encounter Details Date Type Department Care Team (Late st Contact Info) Description 09/15/2017 Abstract [facility] CONVERSION [address] [place] [address] , Generic Conversion, Social History Tobacco Use [...] on filedocumented in this encounter Care Teams Mission Assessment Specialist Relationship Specialty Start Date End Date Lonnie Schaefer DO [address] [place] [address] PCP - General 11/17/14 10/22/18 Dm Pena MD [address] [id number] PCP - General FAMILY PRACTICE 10/23/18 documented as of this encounter
--- OUTSIDE RECORDS SUMMARY | 2025-05-21 18:25 | XMS_ITS | Encounter Summary ---
Author Organization [facility] Healthcare Address [address] [place] [address] Care Team Providers Care Research Physician Name Role Phone Dm Pena MD Primary Care Provider + [phone] Hermelindo Avilez MD Unavailable [phone] Milla Calero RN Unavailable [phone] Melecio Graves MD Unavailable [phone] Nupur Shea RN Unavailable Unavailabl e Encounter Details Date Type Department Care Team (Late st Contact Info) Description 05/21/2025 Telephone [facility] Transplant Kidney [address] [facility] [phone] [place] [address] Nupur Shea RN Social History Tobacco Use Types Packs/Day [...] often do you attend chur ch or temple services? 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 No answer, LVM. H CHECKER documented in this encounter Plan of Treatment Scheduled Procedures Name Priority Associated Diagnoses Date/Ti me TRANSPLANT LIVER Encounter for pre-transplant evaluation for liver transplant Alcoholic liver disease documented as of this encounter Visit Diagnoses Not on filedocumented in this encounter Care Teams Research Physician Relationship Specialty Start Date End Date Dm Pena MD [address] [place] [address] PCP - General 03/05/19 Hermelindo Avilez MD [address] [place] [address] Referring Physician Nephrology 09/23/20 Milla Calero, RN [address] [facility] [address] [place] [address] Director Perioperative 09/10/24 Melecio Graves MD [address] [address] Referring Physician Internal Medicine 09/10/24 Nupur Shea, manager research and developmentDirector Perioperative 09/30/24 documented as of this encounter
--- OUTSIDE RECORDS SUMMARY | 2025-05-21 18:25 | XMS_ITS | Clinical Summary ---
Author Organization [facility] Address [address] [place] [address] Phone Care Team Providers Care Hide Handler Name Role Phone Unavailable Primary Care Provider [...] (#1) 03/02/202503/03, 04/27/2017, 04/02/2015 SARS-COV-2 Immunization ( - season) 2025 Respiratory Syncytial Virus (RSV) Immunization [...]
--- OUTSIDE RECORDS SUMMARY | 2025-05-21 18:25 | XMS_ITS | Clinical Summary ---
Author Organization [facility] Address [address] [place] [address] Care Team Providers Care Tour Agent Name Role Phone Efren Ramirez DO Primary Care Provider [phone] Source Comments [facility],non-owned Affiliates and Associated Physician Practices is amultiple site organization consisting of ambulatory clinics and hospital sitesin [place], [place], [place] and [place]. This disclosure is being madepursuant to the Care Everywhere program and may not contain all information available regarding this patient. Last updated 18.[facility] Allergies No known active allergies Medications * [...] 3 9 Active nadolol (CORGARD) 20 MG tabletIndication s:Alcoholic cirrhosis of liver with ascites (HCC) Take 1 (one) tablet by mouth once daily 90 tablet 3 1 Active lactulose (Chronulac) 10 GM/15ML solutionIndicati ons:Cirrhosis of liver with ascites, unspecified hepatic cirrhosis [...] & Sunday 30 tablet 2 5 Active rifAXIMin (Xifaxan) 550 MG tablet Take 1 (one) tablet by mouth 2 times daily 60 tablet 2 5 Active Additional Information Patient not taking.Reported on 09/30/2024 Active Problems Problem Noted Date Diagnosed Date Confusion 09/22/2024 Encephalopathy, unspecified type 08/12/2024 Neutropenia 06/14/2024 [...] Hypertensive emergency 10/29/2023 GERD (gastroesophageal reflux disease) 4 Thrombocytopenia, secondary 10/29/2023 Acute respiratory failure 10/29/2023 S/P arteriovenous (AV) graft placement 09/01/202 2 Seizures 07/19/2021 Pre-transplant evaluation for liver [...] 80 PTH Intact 546.1 (H) 12/07/22 13:03 Uqlfx-8-Dijbzafcwdl 119 Bzpvj-0-Hlwqdcbfalx Phenotype M1S Ceruloplasmin 25 Osmolality Calculated 301 [...] 04/26/23 09:45 04/26/23 09:46 dsDNA Antibody 15 Fofana/AURIST Antibodies 2 Fofana (FRANCESCA) Antibody 6 Complement [...] is the impression of this social media senior associate that Leonidajay Cuello has several positive factors for Liver/Kidney transplant candidacy including knowledge of illness, sufficient insurance coverage, stable financial situation for post transplant needs, adequate support system, and appropriate discharge plan. Pt has committed to lifelong abstinence and will maintain alcohol free household RP/Provider impression scanned to file Court docs scanned to file Provider impression charted 11/20 Plan: aged or disabled care worker to provide supportive services as needed. Patient appears to be a reasonable candidate for transplant from a psychosocial perspective. Post transplant arrangement forms are needed prior to being listed. Psychiatric Consult Recommended: no Transplant Shoe Lining Fitter: Tala Villalta LCSW Liver Transplant Education 12/07/2022 Linh Forde, resource development managerPhotographic Laboratory Supervisor ENT 11/29/22 - +chew tobacco Findings: -No [...] committee and are final. Amelia Corral MD lobster catcher Transplant Surgery [facility] Transplant Surgery Consultation 01/21/24 Dr. Corral - need note Transplant Nephrology Consultation 01/29/23 I consider the patient an excellent candidate for a simultaneous Liver-Kidney Transplantation. The patient needs ECHO of heart due to a grade 2-3/6 systolic murmur all over the anterior precordium radiating to carotids and anterior Lt axillary line. Also check Anti-DS-DNA Ab, Anti-Fofana Ab, Anti-AURIST Ab, C3, C4, CH50, Lupus anticoagulants titer. [...] of plan of care listed above. Neurology 10.30.23 Assessment and Plan: 57 year old male [...] Problem Noted Date Diagnosed Date Resolved Date Vomiting and diarrhea 09/22/20242024 ESRD (end stage renal disease) 06/11/2024 06/11/2024 Encounters Date Type Department Care Team Description 03/05/2025 8:45 AM CDT Office Visit [facility] - Orthopedics [address] [place] [address], [facility] [place] [address] Yaima Dobbins MD [place], Kerri Kramer, SENIOR DATA MINING ANALYST-COOLER OPERATOR Pyogenic arthritis of right knee joint, due to unspecified organism (HCC) (Primary Dx) 03/05/2025 Travel from Last 3 Months Immunizations Immunization Administration Dates Next Due [facility] PRIMARY 18+YR 09/16/2020 FLU VACCINE TRI IIV3 [...] Answer Date Recorded Patient Health Questionnaire-2 Score 0 03/05/2025 [facility] - Occupational Stress [...] place to sleep or slept in a retirement (including now)? No 11/01/2023 Housing Stability Vital Sign Answer Armaan e Recorded In the last 12 months, was t here a time when you were not able to pay the mortgage or rent on time? No 06/12/2024 In the past 12 months, how m any times have you moved where you were living? 0 06/12/2024 At any time in the past 12 [facility], were you homeless or living in a retirement (including now)? No 06/12/2024 Sex and Gender [...] 30% 10/31/2023 5 :04 PM CDT Weight 74.8 kg (165 lb) 03/05/2025 8:33 AM CDT Height 175.3 cm (5' 9) 09/30/2024 1:07 PM CDT Body Mass Index 24.37 09/30/2024 1:07 PM CDT Plan of Treatment Health Maintenance [...] (2 of 2) 01/08/2024 11/13/2023 COVID-19 VACCINE (2024- season) 2025 05/02/2022, 06/13/2021, 09/16/2020 INFLUENZA VACCINE (#1) 2025 , 03/28/2022, 05/31/2021, Additional history exists DTAP/TDAP/TD VACCINES (2 - Td or Tdap) 12/25/2027 12/24/2017 LIPID TESTING 12/24/2028 12/25/2023, 01/2023, 10/08/2019, Additional history exists COLON MONITORING 2031 12/05/2021, , 01/12/2020 COLONOSCOPY - COLON CA SCREENING 2031 [...] track( 025 1:01 PM CDT) Imelda Perez, RN Note: Expected end date: ongoing Interventions: Take all medications as prescribed Let your doctor know right away about any changes in your medications Make sure to request a refill of your medication at least one week prior to your last dose Medical Devices Implanted Type Area Network Lead Device Identifier Shelf Expiration Date Model / Serial / Lot Kit Durathane Drflw Embosafe Chrnc Dlys Implanted:Qty: 1 on 03/07/2019 by Trav Merrill MD at [facility] Right: Chest [employer] 03/31/2021 [id number] / / [id number] Graft Vasc 6mm 40cm Ptfe Flixene Sldr - [id number] Implanted:Qty: 1 on 02/21/2022 by Kiko Pena MD at [facility] Left: Arterial Maquet 07/20/2023 [id number] / [id number] / Mesh Srg Parietex Progrip 14x9cm Slf Implanted:Qty: 1 on 07/11/2024 by Theron Medellin MD at [facility] Right: Inguinal Covidien [id number] 08/29/2028 [id number] / / [id number] Procedures Procedure Name Priority Date/Time Associated Diagnosis Comments HEPATITIS C AB SCREEN RFLX NAAT QUANT Routine 05/21/2024 2:29 AM RESTAURANT TEAM MEMBER HIV-1 HIV-2 ANTIBODY + HIV P24 AG PANEL STAT 05/21/2024 2:29 AM RESTAURANT TEAM MEMBER LIPID PROFILE Routine 12/25/2023 8:13 AM CDT ESRD on dialysis Alcoholic cirrhosis of liver with ascites Stage 5 chronic kidney disease Pre-transplant evaluation for liver transplant Pre-transplant evaluation for kidney transplant Other ascites MPGN (membranoproliferat jaden glomerulonephritide s) Smoker Anemia in end-stage renal disease ENDOSCOPY, COLON, DIAGNOSTIC Routine 01/12/2020 3:38 PM CDT from Last 3 Months or Most Recently Relevant to Health Maintenance Results * HEPATITIS C AB SCREEN RFLX NAAT QUANT (05/21/2024 2:29 AM RESTAURANT TEAM MEMBER) [facility] Hepatitis C Antibody Non-react jaden Non-reac tive 05/22/2024 8:44 AM RESTAURANT TEAM MEMBER [facility] Comment:Hepatitis C Antibody screen indicates no serologic evidence of past or current infection with Hepatitis C Virus. Patients with unexplained liver disease who are immunocompromised or suspected of having acute Hepatitis C infection may benefit from Nucleic Acid Test (VICTORIANO) for Hepatitis C Viral RNA to confirm Hepatitis C status. Blood BLOOD SPECIMEN / Unknown Lab Venipuncture / Unknown 05/21/2024 2:29 AM RESTAURANT TEAM MEMBER 05/21/2024 3:08 AM RESTAURANT TEAM MEMBER Uli Murphy MD LAB - CHEMISTRY ORDERABLES Fi nal Result Performing Organization Address [facility]/ZIP Co de Phone Number [address] [address], [place] [phone] * HIV-1 HIV-2 ANTIBODY + HIV P24 AG PANEL (05/21/2024 2:29 AM RESTAURANT TEAM MEMBER) [facility] HIV Antigen/Antibod y 1 & 2 Non-reacti ve Non-react jaden 05/22/2024 8:44 AM RESTAURANT TEAM MEMBER [facility] Comment:No Laboratory eviden ce of HIV infection. Blood BLOOD SPECIMEN / Unknown Lab Venipuncture / Unknown 05/21/2024 2:29 AM RESTAURANT TEAM MEMBER 05/21/2024 3:08 AM RESTAURANT TEAM MEMBER Uli Murphy MD LAB - CHEMISTRY ORDERABLES Fi nal Result Performing Organization Address City/[facility]/ZIP Co de Phone Number [address] [address], [place] [phone] * (ABNORMAL) LIPID PROFILE (12/25/2023 8:13 AM CDT) [facility] Cholesterol Total 104 <200 mg/dL 12/25/2023 9:18 AM CDT [facility] HDL 37(L) >40 mg/dL 12/25/2023 9:18 AM [facility] Comment: ATP III Classification of HDL Cholesterol: <40 mg/dL: Considered a major risk factor. >60 mg/dL: Considered a negative risk factor. LDL Calculated 56 <100 mg/dL 12/25/2023 9:18 AM T [facility] Comment: ATP III Classification of LDL Cholesterol: [...] CDT 12/25/2023 8:37 AM CDT Eugenie Dsouza SENIOR DATA MINING ANALYST-COOLER OPERATOR LAB - CHEMISTRY ORD ERABLES Final Result Performing Organization Address City/State/[facility] Co de Phone Number [address] [address], [facility] [phone] * ENDOSCOPY, COLON, DIAGNOSTIC (01/12/2020 3:38 PM CDT) Report Endoscopy POC Endoscopy Department Report _ Patient Name: Leonid Cuello Procedure Date: 01/12/2020 3:38 PM Date [...] entire procedure. Procedure Code(s): --- Professional --- 19328, Esophagogastroduo denoscopy, flexible, transoral; with biopsy, single or multiple Diagnosis Code(s): --- Professional --- I85.00, Esophageal varices without bleeding K31.7, Polyp of stomach and duodenum R13.10, Dysphagia, unspecified CPT copyright 2019 [employer]. All rights reserved. The codes documented in this report are preliminary and upon beveller operator review may be revised to meet current compliance requirements. _ Connor Virgen, 01/12/2020 4:25:45 PM Note Initiated On: 01/12/2020 3:38 PM Number of Addenda: 0 [facility] [address] [facility] [address] [employer] 01/12/2020 3:38 PM CDT Connor Chavez MD GI PROCEDURE ORDERAB LES Edited Result - Final [employer] from Last 3 Months or Most Recently Relevant to Health Maintenance Insurance MEDICARE ANTHEM MEDICARE Advance Directives Documents on File Type Date Recorded Patient Fumigator And Sterilizer Expl anation Adv Directive/Living Will/POA 06/05/2019 * [...] 2:16 PM 02/22/2022 12:05 PM Care Teams Tour Agent Relationship Specialty Start Date End Date Efren Ramirez DO [address] [place] [phone] PCP - General Internal Medicine 06/12/24
--- OUTSIDE RECORDS SUMMARY | 2025-05-21 18:25 | XMS_ITS | Clinical Summary ---
Author Organization [facility] Address [facility] [place] [address] Care Team Providers Care Program Aide Name Role Phone Dm Pena MD Primary Care Provider Allergies No known active allergies Medications melatonin [...] levETIRAcetam (KEPPRA) 750 MG tabletIndicatio ns:Seizure disorder (CMS/HCC HHS/HCC),Closed head injury, sequela Take 1 tablet (750 mg total) by mouth 2 (two) times daily. 60 tablet 3 03/16/2023 Active B Emuhbzy-P-Ukltu Acid (TRIPHROCAPS) 1 MG Cap Take 1 capsule by mouth daily. Active Active Problems Problem Noted Date Diagnosed Date Acute upper respiratory infection 07/05/2023 Non-recurrent unilateral ing uinal hernia without obstruction or gangrene 04/02/2023 Seizure disorder 08/29/2022 Closed head injury, sequela 08/29/2022 Dyspepsia 08/29/2022 Senile cataract of right eye , unspecified age-related cataract type 11/02/2021 Renal hypertension 09/15/2021 Insomnia, unspecified type 03/02/2021 Erectile dysfunction, unspecified erectile dysfu nction type 04/26/2020 Acute pain of right knee 05/03/2019 Chronic renal failure 03/05/2019 Cirrhosis of liver with ascites 03/05/2019 Pancytopenia 03/05/2019 Anemia in end-stage renal disease 02/26/2019 Hyperphosphatemia 02/26/2019 Metabolic acidosis 02/26/2019 Hyponatremia 02/06/2019 Portal hypertension 02/06/2019 Dyspnea 01/24/2019 Decompensated hepatic cirrhosis 01/22/2019 Alcoholism 02/19/2015 Ascites 10/09/2014 Type 2 diabetes mellitus wit h chronic kidney disease, without long-term current use of insulin 09/14/2014 Overview (04/21/2019): Description: 04/2012 Gout 04/06/2014 Elevated liver enzymes 09/10/2013 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 Nephrotic syndrome 08/14/2013 Nephrolithiasis 08/14/2013 Obstructive sleep apnea 08/14/2013 Proteinuria 08/14/2013 Essential hypertension 08/02/2013 Overview (04/21/2019): Description: prior to 03/2003 Resolved Problems Problem Noted Date Diagnosed Date Resolved Date Acute upper respiratory infection 03/02/2021 01/25/2023 Peritonitis 04/18/2019 03/28/2022 SHIRA (acute kidney injury) 01/24/2019 Type 2 diabetes mellitus 08/14/2013 Routine general medical exam ination at a [...] 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 file Not on file Not on file Last Filed Vital Signs Vital Sign Reading Time Taken Comments Blood Pressure 124/62 07/05/2023 1:07 PM UPTWISTER TENDER Pulse 57 12/05/2021 6:35 PM CDT Temperature 36.8 C (98.3 F) 08/29/2022 2:49 PM UPTWISTER TENDER Respiratory Rate 17 12/05/2021 6:35 PM CDT Oxygen Saturation 96% 12/05/2021 6:35 PM CDT Inhaled Oxygen Concentration - - Weight 81.2 kg (179 lb) 07/05/2023 1:07 PM UPTWISTER TENDER Height 175.3 cm (5' 9) 01/25/2023 1:06 PM CDT Body Mass Index 26.43 01/25/2023 1:06 PM CDT Plan of Treatment Health Maintenance Due Date Last Done Comments Diabetes: Retinopathy Eye Exam 12/07/1983 Hepatitis A Vaccines (1 of 2 - Risk 2-dose series) 1984 Zoster Vaccines (2 of 2) 01/08/2024 11/13/2023 Annual Physical 01/26/2024 01/25/2023, 030 08/2021, 04/26/2020, Additional history exists Hemoglobin A1C 06/25/2024 12/25/2023, 06/0 01/2023, 11/02/2021, Additional history exists PHQ-2 (Physician [place]) 07/02/2024 Lipid Panel 12/24/2024 12/25/2023, 06/0 01/2023, 09/09/2013 COVID-19 Vaccine ( season) 2025 05/02/2022, 06/13/2021, 09/16/2020 Influenza Adult (#1) 2025 03/28/2022, 05/31/2021, 04/06/2020, Additional history exists DTaP, Tdap and Td Vaccines (2 - Td or Tdap) 12/25/2027 12/24/2017 Colorectal Cancer Screening Colonoscopy (10 Years) 2031 12/05/2021, 12/05/2021, 03/02/2005 Pneumococcal Vaccine: 50+ Years Completed 11/13/2023, 11/02/2021 Hepatitis C Completed 12/25/2023, 01/2023, 01/24/2019 Meningococcal B Vaccine Aged Out No l onger eligible based on patient's age to complete this topic Meningococcal Vaccine Aged Out No antoinette mahesh eligible based on patient's age to complete this topic RSV Immunizations Under 20 Months Aged Out No longer eligible based on patient's age to complete this topic Medical Devices Implanted Type Area Mattress Weaver Device Identifier Shelf Expiration Date Model / [...] the left lateral decubitus position, the [id number] [id number] colonoscope was introduced into the rectum and [...] HGB A1C 4.8 4.2 - 6.5 % [facility] 11/02/2021 10:0 5 AM CDT Dm Pena MD LABORATORY Final Resul t [facility] [address] [address] * (ABNORMAL) LIPID PANEL (09/09/2013 9:23 AM [...] Health Maintenance Insurance MEDICARE MEDICARE Care Teams Program Aide Relationship Specialty Start Date End Date Dm Pena MD [address] [id number] PCP - General FAMILY PRACTICE 10/23/18
--- OUTSIDE RECORDS SUMMARY | 2025-05-21 18:25 | XMS_ITS | Clinical Summary ---
Author Organization [facility] at the [facility] Address [address] [place] [address] Care Team Providers Care Music Writer Name Role Phone Dm Pena MD Primary Care Provider [phone] Hermelindo Avilez MD Unavailable [phone] Milla Calero RN Unavailable [phone] Melecio Graves MD Unavailable [phone] Nupur Shea RN Unavailable Unavailabl e Allergies [...] Encounters Date Type Department Care Team Description 05/21/2025 Telephone [facility] Transplant Kidney [address] [facility] [address] [phone] [place] [address] Nupur Shea, RN 05/21/2025 Telephone [facility] Transplant Kidney [address] [facility] [address] [phone] [place] [address] Shahida Avila 05/19/2025 Telephone [facility] Transplant Kidney [address] [facility] [phone] [place] [address] Nupur Shea, DIVINE 05/19/2025 Telephone [facility] Transplant Kidney [address] [facility] [address] [phone] [place] [address] Salena Mcdowell 05/15/2025 Telephone [facility] Transplant Kidney [address] [facility] [phone] [place] [address] Nupur Shea RN 05/11/2025 Telephone [facility] Transplant Kidney [address] [facility] [phone] [place] [address] Nupur Shea RN 05/11/2025 Documentation [facility] Transplant Liver [address] [facility] [address] [phone] [place] [address] Mckenzie Ibarra 05/07/2025 Telephone [facility] Transplant Liver [address] [facility] [address] [phone] [place] [address] Milla Calero, RN 05/07/2025 Telephone [facility] Transplant Liver [address] [facility] [phone] [place] [address] Mckenzie Ibarra 05/07/2025 Telephone [facility] Transplant Kidney [address] [facility] [phone] [place] [address] YearoutNupur, RN 05/07/2025 Telephone [facility] Transplant Kidney [address] [facility] [phone] [place] [address] Shahida Avila 04/23/2025 Telephone [facility] Transplant Liver [address] [facility] [address] [place] [address] Hermelinda Choudhary 04/21/2025 Telephone [facility] Transplant Kidney [address] [facility] [phone] [place] [address] YearoutNupur, RN 04/21/2025 Telephone [facility] Transplant Liver [address] [facility] [phone] [place] [address] Milla Calero, RN 03/12/2025 Telephone [facility] Transplant Kidney [address] [facility] [phone] [place] [address] YearoutNupur, DIVINE 03/12/2025 Telephone [facility] Transplant Liver [address] [address] [phone] [place] [address] Milla Calero, RN 03/12/2025 Documentation [facility] Transplant Liver [address] [address] [phone] [place] [address] Milla Calero, RN from Last 3 Months Surgical History Surgery Date Site/Laterality Comments [place] VASECTOMY UNI/BI SPX W/PO STOP SEMEN EXAMS Surgery Vas Deferens Vasectomy - 2003 (Added by TW Conv) KNEE SURGERY Knee [...] History of hypertension - (A dded by Conv) Family History Medical History Relation Name [...] often do you attend chur ch or scientologist services? 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 Blood specimen (specimen) 09/22/2020 12:51 PM CDT 09/22/2020 1:40 PM CDT Dean Echols MD LAB BLOOD ORDERABLES F inal Result Performing Organization Address [facility] Co de Phone Number [facility] [place] [address] * Hepatitis C antibody (09/22/2020 12:51 PM CDT) Pathologist [facility] Hep C Ab Nonreactive Nonreactive [facility] Comment:Antibodies to HCV no t detected. Does NOT exclude the possibility of recent exposure to HCV. Blood specimen (specimen) 09/22/2020 12:51 PM CDT 09/22/2020 1:40 PM CDT Dean Echols MD LAB MICROBIOLOGY - GEN ERAL ORDERABLES Edited Result - Final [facility] [place] [address] from Last 3 Months or Most Recently Relevant to Health Maintenance Insurance [place] MEDICARE MEDICARE [facility] MEDICARE SUPPLEMENT MEDICARE Care Teams Music Writer Relationship Specialty Start Date End Date Dm Pena MD [address] [place] [address] PCP - General 03/05/19 Hermelindo Avilez MD [address] [place] [address] Referring Physician Nephrology 09/23/20 Milla Calero, RN [address] [facility] [address] [place] [address] Hotel Front Office Manager 09/10/24 Melecio Graves MD [address] [place] [address] Referring Physician Internal Medicine 09/10/24 Yearout, Nupur Santana, casing in line feederHotel Front Office Manager 09/30/24
--- OUTSIDE RECORDS SUMMARY | 2025-05-21 18:25 | XMS_ITS | Clinical Summary ---
Author Organization [facility] Address [address] [place] [address] Phone Care Team Providers Care Profiling Machine Set Up Operator Tool Name Role Phone SchaeferLonnie avalos Primary Care Provider Allergies No known active allergies Medications amLODIPine [...] night if needed Active ergocalciferol (VITAMIN D-2) 72147 units capsule Take 50,000 Units by mouth [...] on file Legal Sex Male 7:57 AM [facility] Gender Identity Not on file Sexual Orientation Not on file Last Filed Vital Signs Vital Sign Reading Time Taken Comments Blood Pressure 125/66 02/27/2019 10:00 AM CDT Pulse 102 02/27/2019 10:00 AM CDT Temperature - - Respiratory Rate - - Oxygen Saturation - - Inhaled Oxygen Concentration - - Weight 86.6 kg (191 lb) 02/27/2019 10:00 AM CDT Height 177.8 cm (5' 10) 02/27/2019 10:00 AM CDT Body Mass Index 27.41 02/27/2019 10:00 AM CDT Plan of Treatment Health Maintenance Due Date Last Done Comments Influenza Vaccine (#1) 2025 04/27/2017, 2014 Insurance [facility] [place] [address] Care Teams Profiling Machine Set Up Operator Tool Relationship Specialty Start Date End Date Lonnie Schaefer DO [address] [facility] [address] [place] [phone] PCP - General 02/21/19
--- OUTSIDE RECORDS SUMMARY | 2025-05-21 18:25 | XMS_ITS | Encounter Summary ---
Author Organization [facility] Healthcare Address [address] [place] [address] Care Team Providers Care Hangar Attendant Name Role Phone Dm Pena MD Primary Care Provider [phone]- [phone] Hermelindo Avilez MD Unavailable [phone] Milla Calero RN Unavailable [phone] Melecio Graves MD Unavailable [phone] Nupur Shea RN Unavailable Unavailabl e Encounter Details Date Type Department Care Team (Late st Contact Info) Description 05/21/2025 Telephone [facility] Transplant Kidney [address] [facility] [address] [phone] [place] [address] Shahida Avila Social History Tobacco Use Types Packs/Day Years [...] often do you attend chur ch or sikhism services? 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 in [place] due to ammonia level Patient needs a return call from the nurse coordinator. S AND MARKETING AGENT documented in this encounter Plan of Treatment Scheduled Procedures Name Priority Associated Diagnoses Date/Ti me TRANSPLANT LIVER Encounter for pre-transplant evaluation for liver transplant Alcoholic liver disease documented as of this encounter Visit Diagnoses Not on filedocumented in this encounter Care Teams Hangar Attendant Relationship Specialty Start Date End Date Dm Pena MD [address] [place] [address] PCP - General 03/05/19 Hermelindo Avilez MD [address] [place] [address] Referring Physician Nephrology 09/23/20 Milla Calero, RN [address] [facility] [address] [place] [address] Cup Machine Operator 09/10/24 Melecio Graves MD [address] [place] [address] Referring Physician Internal Medicine 09/10/24 Nupur Shea senior talent management consultantCup Machine Operator 09/30/24 documented as of this encounter
--- OUTSIDE RECORDS SUMMARY | 2025-05-21 18:25 | XMS_ITS | Encounter Summary ---
Author Organization [facility] Healthcare Address [address] [place] [address] Care Team Providers Care Cryptologist Name Role Phone Dm Pena MD Primary Care Provider [phone]- [phone] Hermelindo Avilez MD Unavailable [phone] Milla Calero RN Unavailable [phone] Melecio Graves MD Unavailable [phone] Nupur Shea RN Unavailable Unavailabl e Salena Hobson RN Unavailable [phone] Encounter Details Date Type Department Care Team (Late st Contact Info) Description 11/20/2024 Telephone [facility] [address] [place] [address] Pete Santoro, RT Social History [...] on file 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 Gender Identity Not on file Sexual Orientation Not on file 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 Not on file Not on file documented as of this encounter Plan of Treatment Scheduled Procedures Name Priority Associated Diagnoses Date/Ti me TRANSPLANT LIVER Encounter for pre-transplant evaluation for liver transplant Alcoholic liver disease documented as of this encounter Visit Diagnoses Not on filedocumented in this encounter Care Teams Cryptologist Relationship Specialty Start Date End Date Dm Pena MD [address] [place], [place] [address] PCP - General 03/05/19 Hermelindo Avilez MD [address] [place], [place] [address] Referring Physician Nephrology 09/23/20 Milla Calero, RN [address] [facility] [address] [place] [address] Fisher Seal 09/10/24 Melecio Graves MD [address] [place] [address] Referring Physician Internal Medicine 09/10/24 Nupur Shea escrow clerkFisher Seal 09/30/24 Salena Hobson, RN [address] [facility] [address] [place] [address] Secondary Kidney Coordinator 10/27/24 01/20/25 documented as of this encounter
--- OUTSIDE RECORDS SUMMARY | 2025-05-21 18:25 | XMS_ITS | Encounter Summary ---
Author Organization [facility] Address [address] [place] [address] Phone Care Team Providers Care Revenue Officer Name Role Phone Lonnie Schaefer DO Primary Care Provider [phone] Encounter Details Date Type Department Care Team (Late st Contact Info) Description 04/20/2022 [facility] Nephrology and Hypertension [address] [facility], [address] [place] [address] Aleja Norris RN Social History Tobacco Use Types Packs/Day Years Used Date Smoking Tobacco: Never Smokeless Tobacco: Never Alcohol Use Standard Drinks/Week Comments Yes 0 (1 standard drink = 0.6 oz pure alcohol) Alcoholic Drinks/day: has recently quit, was a very heavy drinker Sex and Gender Information Value Date Recorded Sex Assigned at Not on file Legal Sex Male 7:57 AM [facility] Gender Identity Not on file Sexual Orientation [...] on filedocumented in this encounter Care Teams Revenue Officer Relationship Specialty Start Date End Date Lonnie Schaefer DO [address] [facility] [address] [place] [phone] PCP - General 02/21/19 documented as of this encounter
[2025-05-21] MEDS: CALCIUM GLUCONATE 1,000 MG/10 ML VIAL 1000 MG IV PUSH (18:29)
[2025-05-21] MEDS: DEXTROSE 50% 25 GM/50 ML SYRINGE IV PUSH (18:32)
[2025-05-21] MEDS: SODIUM BICARBONATE 8.4% 50 MEQ/50 ML SYRINGE IV PUSH (18:32)
[2025-05-21] MEDS: INSULIN HUMAN REGULAR (*BKC) 100 UNITS/ML IV PUSH (18:33)
--- NOTE | 2025-05-21 19:02 | PC.NURSE ---
this RN attempted to administer oral medication. pt is unable to swallow medications.
[2025-05-21] MEDS: LACTULOSE ENEMA 200 GM/1,000 ML ENEMA RECTAL (20:05)
--- NOTE | 2025-05-21 20:24 | PM.IMHP ---
H&P: HPI History of Present Illness Date/Time: 05/21/25 20:24 Chief Complaint: Altered mental status Narrative: This is a 59-year-old male patient who has liver failure and end-stage renal disease on dialysis Sunday. The patient missed 2 days of dialysis. some of his friends checked up on him today and found him to be altered and called the ambulance. The patient is able to follow simple commands but does not answer the questions. last known normal according to his friend was last Sunday. His white count was noted to be 3.9. H&H is 9.3 and 28.3. His platelet levels 37. His sodium is 136, potassium 5.8, anion gap 17, BUN 107, creatinine 12.08, estimated GFR 4, and glucose 156. Calcium is low at 7.6 and magnesium is 3.0 with phosphorus 5.3. Ammonia level 167. Total bilirubin 1.7. Head CT was read as stable exam compared to previous studies. No gross intracranial mass effect or hemorrhage. Chest x-ray was read as cardiomegaly, atherosclerotic aorta and mild vascular congestion of the lungs. Chest abdomen pelvis CT was read as a followingIMPRESSION: 1. Severe cardiomegaly and severe multivessel coronary artery calcifications. Calcific changes of aortic valve cusps indicating some degree of aortic stenosis. Please correlate with echocardiographic findings. 2. Small bilateral pleural effusion. 3. Limited CT without IV contrast especially for solid viscera, neoplasms and vascular structures. 4. Contracted nodular liver and splenomegaly with prominent venous varices in the upper left abdomen. Moderate free fluid in the peritoneal cavity. Findings are suggestive of significant chronic liver disease with portal hypertension The patient was given a dose of Rocephin for possible SBP. Nephrology has been consulted. He was given D50, calcium gluconate, IV insulin, sodium bicarb, and Lokelma in the emergency room. He was also given a lactulose enema in the emergency room. The patient was moving all extremities no focal weakness. However was not answering questions appropriately. The patient is being admitted to observation status on the date of service of 05/21/2025. Review of Systems Review of Systems: ROS unobtainable: Yes unobtainable due to medical condition and unobtainable due to mental status PMFSH Past Medical History Medical History Acute hyperkalemia Mitral insufficiency and aortic stenosis Esophageal varices in alcoholic cirrhosis Facial hematoma Pancytopenia Seizure Cirrhosis, alcoholic Acute respiratory failure Cirrhosis Renal osteodystrophy Erythropoietin deficiency anemia Thrombocytopenia Coagulopathy Encephalopathy, hepatic Alcoholic liver failure ESRD needing dialysis Surgical History Surgical History H/O arthroscopic knee surgery Bilateral knees H/O right knee surgery Hx of hernia repair H/O cataract removal with insertion of prosthetic lens History of vasectomy Status post biopsy of kidney Family History Family History Father Colon cancer Dementia Diabetes mellitus Mother Aneurysm Social History Social History Social History: The patient is single. 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 He has a daughter Deloris who is listed as his emergency contact. Code status: Full code Smoking packs per day: 2.5 Smoking cigarettes per day: 50.0 Years smoked: 43 Smoking pack-years: 107.50 Smoking status: Unknown if ever smoked Tobacco type: cigarettes Alcohol intake: former Alcohol use details: none since04/11/21 Substance use: never Substance use type: marijuana Other substance usage details: gummies Do You Feel Safe in your Home?: Yes Lack of Transportation: No Lack of Food: Never True Current Housing: I Have Housing Concerned About Future Housing: No Difficulty Paying Gas/Electric Bills: No Difficulty Paying for Meds: No Currently Unemployed: No Education: Master's Degree or Higher Difficulty w/ Childcare or Family Care: No Spiritual care concerns: No Meds Home Medications and Allergies Home Medications ?Medication ?Instructions ?Recorded ?Confirmed ?Type melatonin 3 mg tablet 9 mg PO HS Sleep 03/27/24 05/22/25 History levetiracetam 750 mg tablet 750 mg PO Q12H 30 days #60 tabs 08/21/24 05/22/25 Rx nadolol 20 mg tablet See Rx Instructions .Route 09/02/24 05/22/25 Rx .COMPLEX #90 tabs amlodipine 5 mg tablet 5 mg PO DAILY 10/13/24 05/22/25 History sevelamer carbonate 800 mg tablet 800 mg PO .COMPLEX 10/13/24 05/22/25 History lactulose 10 gram/15 mL oral 40 g (60 mL) PO TID #3,000 mL 12/02/24 05/22/25 Rx solution furosemide 80 mg tablet See Rx Instructions .Route 02/23/25 05/22/25 Rx .COMPLEX #180 tabs hydralazine 25 mg tablet See Rx Instructions .Route 03/23/25 05/22/25 Rx .COMPLEX #270 tabs omeprazole 40 mg capsule,delayed 40 mg PO DAILY 05/02/25 05/22/25 History release isosorbide mononitrate 30 mg 30 mg PO QAM #30 tabs 05/06/25 05/22/25 Rx tablet,extended release 24 hr pantoprazole 40 mg tablet,delayed 40 mg PO QAM #30 tabs 05/06/25 05/22/25 Rx release thiamine HCl (vitamin B1) 100 mg 100 mg PO QAM #30 tabs 05/06/25 05/22/25 Rx tablet (Vitamin B-1) folic acid 1 mg tablet See Rx Instructions .Route 05/11/25 05/22/25 Rx .COMPLEX #30 tabs Allergies Allergy/AdvReac Type Severity Reaction Status Date / Time No Known Allergies Allergy Unknown Verified 05/21/25 23:44 Vital Signs Vital Signs - 24 hr 05/21/25 14:38 05/21/25 14:51 05/21/25 14:54 Temperature 97.8 F Pulse Rate 72 67 Respiratory Rate 12 Blood Pressure 192/85 H Pulse Oximetry 100 100 Oxygen Delivery Room Air Room Air 05/21/25 14:54 05/21/25 15:30 05/21/25 15:47 Temperature 97.8 F Pulse Rate 67 57 L 54 L Respiratory Rate 13 12 10 L Blood Pressure 192/85 H Pulse Oximetry 100 100 100 Oxygen Delivery 05/21/25 16:00 05/21/25 17:46 05/21/25 18:01 Temperature Pulse Rate 54 L 75 63 Respiratory Rate 10 L 13 12 Blood Pressure 196/87 H 192/75 H 189/74 H Pulse Oximetry 100 99 99 Oxygen Delivery 05/21/25 18:16 05/21/25 18:46 05/21/25 19:36 Temperature Pulse Rate 71 53 L 56 L Respiratory Rate 12 12 12 Blood Pressure 197/74 H 202/77 H 194/71 H Pulse Oximetry 99 99 99 Oxygen Delivery Exam Const: General: cooperative, no acute distress, well developed, awake, Physically active and average body habitus Nutritional Appearance: average body habitus Orientation/consciousness: oriented to person Other: The patient is answering questions inappropriately. The patient appears to be jaundice. HENMT: Head: normal to inspection, No palpable skull fracture present, normocephalic, atraumatic and abrasion Ears: hearing grossly normal bilaterally Eyes: General: appearance normal, both eyes and all related structures Alignment and Position: alignment normal Periorbital: periorbital findings normal Eyelids: eyelids normal Neck: Neck: normal visual inspection and full ROM Chest: Chest palpation & inspection: normal inspection of the chest Resp: Effort & Inspection: normal respiratory effort Auscultation: rhonchi lower bilaterally Cardio: Palpation: normal PMI Rate: regular rate Rhythm: regular rhythm Heart sounds: S1 normal heart sound present and S2 normal heart sound present Peripheral pulses: Peripheral pulses 2+ throughout GI: Inspection: normal to inspection Percussion: Yes normal to percussion Back/Spine/Pelvis: Back: no CVA tenderness Skin: General skin exam: normal color Lesions: no lesions Rashes: no rashes Trauma: no lacerations or abrasions Neuro: General: oriented to person Motor exam (neuro): 5/5 motor strength present throughout Extrem: General: normal to inspection Right upper extremity: normal to inspection and shoulder/upper arm Left upper extremity: normal to inspection and shoulder/upper arm Right lower extremity: normal to inspection Left lower extremity: normal to inspection Other: AV fistula left forearm has a positive bruit and thrill. Psych: Appearance: grossly normal Mental Status: mental status grossly normal H&P: Results Labs Labs: Short CBC 05/21/25 Range/Units 16:10 WBC 3.9 L (4.5-10.0) K/mm3 Hgb 9.3 L (14.0-18.0) g/dL Hct 28.3 L (42.0-52.0) % Plt Count 37 L D (150-375) k/mm3 BMP 05/21/25 16:10 Sodium 136 L Potassium 5.8 H Chloride 99 Carbon Dioxide 20 L BUN 107 H* D Creatinine 12.08 H Glucose 102 Calcium 7.6 L Liver Function 05/21/25 Range/Units 16:10 Total Bilirubin 1.7 H (0.2-1.3) mg/dL AST 18 (17-59) U/L ALT 14 (6-50) U/L Alkaline Phosphatase 124 (38-126) U/L Albumin 3.7 (3.5-5.1) g/dL ECG Interpretation: SINUS RHYTHM WITH FIRST DEGREE AV BLOCK POSSIBLE RIGHT VENTRICULAR CONDUCTION DELAY [RSR (QR) IN V1/V2] PROLONGED QT INTERVAL Compared to ECG 05/02/2025 16:47:42 Sinus bradycardia no longer present Incomplete right bundle-branch block no longer present T-wave abnormality no longer present Imaging CT scan - head: Radiologist's impression: Impressions Head CT 05/21/25 15:13 IMPRESSION: 1. Stable exam compared to previous studies. 2. No gross intracranial mass effect or hemorrhage. Chest X-Ray 05/21/25 18:11 IMPRESSION: 1. Cardiomegaly, atherosclerotic aorta and mild vascular congestion of the lungs. Chest/Abdomen/Pelvis CT 05/21/25 19:21 IMPRESSION: 1. Severe cardiomegaly and severe multivessel coronary artery calcifications. Calcific changes of aortic valve cusps indicating some degree of aortic stenosis. Please correlate with echocardiographic findings. 2. Small bilateral pleural effusion. 3. Limited CT without IV contrast especially for solid viscera, neoplasms and vascular structures. 4. Contracted nodular liver and splenomegaly with prominent venous varices in the upper left abdomen. Moderate free fluid in the peritoneal cavity. Findings are suggestive of significant chronic liver disease with portal hypertension. Assessment and Plan Assessment and plan (1) End stage renal disease: Code(s): N18.6 - End stage renal disease Status: Chronic Assessment and Plan: -the patient is supposed to have dialysis on Sunday. However the patient has missed the last 2 dialysis treatments. AV fistula left forearm has a positive bruit and thrill. -his potassium was initially 5.8 and is now 4.8. He was given Lokelma, D50, insulin, calcium gluconate, and sodium bicarb in the emergency room. -nephrology has been consulted. -continue to monitor BMP daily. Patient's BUN is now 108 and creatinine 12.96 with a GFR 4. (2) Hyperkalemia: Code(s): E87.5 - Hyperkalemia Status: Acute Assessment and Plan: -his potassium was initially 5.8 and is now 4.8. He was given Lokelma, D50, insulin, calcium gluconate, and sodium bicarb in the emergency room. --the patient is supposed to have dialysis on Sunday. However the patient has missed the last 2 dialysis treatments. (3) Alcoholic liver failure: Code(s): K70.40 - Alcoholic hepatic failure without coma Status: Acute Assessment and Plan: -GI has been consulted. -the patient was empirically placed on Rocephin and Flagyl for possible spontaneous bacterial peritonitis. -continue with IV folic acid and IV times -patient has not been able to take p.o. and was given a lactulose enema. His ammonia level was 167 and is now down to 102. A repeat lactulose enema was ordered. Repeat another ammonia level in morning. -the patient is confused and is not able to take p.o. medication at this time. -he has pancytopenia with thrombocytopenia -he is not able to take Lasix p.o. so I did change it to IV. -the patient currently has hepatic encephalopathy. -he is jaundiced. (4) Esophageal varices in alcoholic cirrhosis: Code(s): K70.30 - Alcoholic cirrhosis of liver without ascites; I85.10 - Secondary esophageal varices without bleeding Status: Acute Assessment and Plan: -continue with Protonix (5) Thrombocytopenia: Code(s): D69.6 - Thrombocytopenia, unspecified Status: Acute Assessment and Plan: -secondary to his alcoholism and liver disease. His platelets are now 37. He is not actively bleeding. (6) Hypertension: Code(s): I10 - Essential (primary) hypertension Status: Chronic Assessment and Plan: -the patient is not able to take oral medication. His amlodipine, hydralazine, Lasix, in nadol are currently on hold as he is not able to take anything p.o. at this time. -continue with IV Lasix, IV hydralazine, and IV Lopressor. -current blood pressure is elevated at 187/60. (7) Seizure: Code(s): R56.9 - Unspecified convulsions Status: Acute Assessment and Plan: -the patient is unable to take p.o. Keppra and it was changed to IV Keppra. No seizure activity noted at this time. Quality VTE Prophylaxis VTE prophylaxis: mechanical ordered
[2025-05-21] MEDS: cefTRIAXone 2 GM in SODIUM CHLORIDE 0.9% IV 50 ML 100 ML IVPB (20:55)
--- NOTE | 2025-05-21 23:06 | WPCEDHO ---
ED Hand Off Checklist All vitals saved: yes IV Site documented: yes All med administrations documented: yes Triage Note Triage Note pt to ED via [facility] 05/21/25 14:38 with c/o altered mental status. EMS states the pts friend went to his house today to check on pt. friend stated to EMS that pt is confused. EMS states pt receives dialysis 3x week and has been non compliant since Sunday. pt has missed 3 dialysis appointments. pt is A&Ox4 baseline and is currently A&Ox1. pt is coughing up phlegm upon arrival to room. Allergies No Known Allergies Allergy (Unknown, Verified 05/19/25 14:18) ER Family History (Last Reviewed 05/19/25 @ 14:20 by Anastasiia Chavez [facility]) Father Colon cancer Dementia Mother Aneurysm Administered/Completed Medications Discontinued Medications Calcium Gluconate (Calcium Gluconate 1,000 Mg/10 Ml Vial) 1,000 mg IV PUSH ONCE STA Stop: 05/21/25 17:24 Last Admin: 05/21/25 18:29 Dose: 1,000 mg Documented By: JULIA Dextrose (Dextrose 50% 25 Gm/50 Ml Syringe) 25 gm IV PUSH ONCE STA Stop: 05/21/25 17:24 Last Admin: 05/21/25 18:32 Dose: 25 gm Documented By: JULIA Ceftriaxone Sodium 2 gm/ (Sodium Chloride) 50 mls @ 100 mls/hr IVPB ONCE STA Stop: 05/21/25 20:36 Last Infusion: 05/21/25 21:29 Dose: Infused Documented By: Admin: 05/21/25 20:55 Dose: 100 mls/hr Documented By: JULIA Insulin Human Regular (Insulin Human Regular (*Bkc) 100 Units/Ml) 5 units IV PUSH ONCE STA Stop: 05/21/25 17:24 Last Admin: 05/21/25 18:33 Dose: 5 units Documented By: JULIA Co-signed By: AILYN Lactulose (Lactulose 20 Gm/30 Ml Udc) 20 gm PO ONCE STA Stop: 05/21/25 17:22 Last Admin: 05/21/25 19:03 Dose: Not Given Documented By: JULIA Non-Admin Reason: Unable to Swallow Lactulose (Lactulose Enema 200 Gm/1,000 Ml Enema) 200 gm RECTAL ONCE ONE Stop: 05/21/25 19:29 Last Admin: 05/21/25 20:05 Dose: 200 gm Documented By: JULIA Sodium Bicarbonate (Sodium Bicarbonate 8.4% 50 Meq/50 Ml Syringe) 50 meq IV PUSH ONCE STA Stop: 05/21/25 17:24 Last Admin: 05/21/25 18:32 Dose: 50 meq Documented By: JULIA Sodium Zirconium Cyclosilicate (Sodium Zirconium Cyclosilicate 10 Gm Powd.Pack) 10 gm PO ONCE STA Stop: 05/21/25 17:24 Last Admin: 05/21/25 19:04 Dose: Not Given Documented By: JULIA Non-Admin Reason: Unable to Swallow Notes 05/21/25 19:02 Nurse Note by Nguyen Leonard. this RN attempted to administer oral medication. pt is unable to swallow medications. Initialized on 05/21/25 19:02 - END OF NOTE 05/21/25 16:13 Nurse Note by Nguyen Leonard. straight catheter was done, no urine output was in the catheter bag. Initialized on 05/21/25 16:13 - END OF NOTE Interventions/Assessments Cardiac Monitoring Start: 05/21/25 14:32 Freq: Status: Active Protocol: Document 05/21/25 14:54 LDD (Rec: 05/21/25 14:55 LDD [id number]) Director Of Mechanical Engineering Assessment Director Of Mechanical Engineering Yes Applied Pulse Rate (60-100) 67 EKG Rythm Sinus Rhythm IV / Saline Lock, Insert Start: 05/21/25 14:55 Freq: STAT Status: Active Protocol: Document 05/21/25 15:45 LDD (Rec: 05/21/25 15:45 LDD [id number]) IV Assessment Peripheral Access Right Antecubital IV Catheter Access Initiated Before Arrival IV Insertion Date 05/21/25 Catheter Gauge 18 IV Site Assessment WNL IV Care and WNL Maintenance PA: Cardiovascular Assessment Start: 05/21/25 14:32 Freq: Status: Active Protocol: Document 05/21/25 14:51 LDD (Rec: 05/21/25 14:53 LDD [id number]) Cardiovascular Assessment Cardiovascular None Symptoms Skin Description Normal Color Heart Sounds Normal Jugular Vein None Distention PA: Neurological Assessment Start: 05/21/25 14:32 Freq: Status: Active Protocol: Document 05/21/25 14:51 LDD (Rec: 05/21/25 14:53 LDD [id number]) Neurological Assessment Level of Awake Consciousness Arousable to Verbal Orientation Oriented to Person,Disoriented to Place,Disoriented to Time Neurological Confusion Symptoms Hallucination Type None Unable to Redirect No Behavior Behavior Appropriate,Withdrawn Patient Unable to Comprehend Comprehension Memory Description Unable to Assess Facial Symmetry Symmetrical Speech Pattern Excessive,Garbled Ability to Swallow Normal Tongue Position Midline [place] Coma Scale Eyes Open Verbal Nonsensical Speech Motor Follows Commands [place] Coma Total 13 Score PA: Respiratory Assessment Start: 05/21/25 14:32 Freq: Status: Active Protocol: Document 05/21/25 14:51 LDD (Rec: 05/21/25 14:53 LDD [id number]) Respiratory Assessment Symptoms Cough Effort Normal Pattern Regular Depth Normal Chest Expansion Symmetrical Cough Description Hacking,Productive Cough Frequency Intermittent Sputum Amount Scant Sputum Color Clear Oxygen Delivery Oxygen Delivery Room Air Pulse Oximetry (90- 100 100) Last Vital Signs Temperature 97.8 F 05/21/25 14:54 Pulse Rate 55 L 05/21/25 22:00 Respiratory Rate 12 05/21/25 22:00 Pulse Oximetry 100 05/21/25 22:00 Blood Pressure 157/53 H 05/21/25 22:00 Blood Pressure Mean 87 05/21/25 22:00 Blood Pressure Position Supine 05/21/25 14:38 Oxygen Delivery Room Air 05/21/25 14:51 Weight 66.8 kg 05/21/25 14:38 Last Result - Abnormals Only WBC 3.9 K/mm3 (4.5-10.0) L 05/21/25 16:10 RBC 2.84 M/mm3 (4.6-6.20) L 05/21/25 16:10 Hgb 9.3 g/dL (14.0-18.0) L 05/21/25 16:10 Hct 28.3 % (42.0-52.0) L 05/21/25 16:10 RDW 15.8 % (11.5-14.5) H 05/21/25 16:10 Plt Count 37 k/mm3 (150-375) L D 05/21/25 16:10 MPV 11.0 fl (7.4-10.4) H 05/21/25 16:10 PT 19.2 Seconds (11.1-14.7) H 05/21/25 16:10 ABG pCO2 29.8 mmHg (35.0-45.0) L 05/21/25 17:57 ABG HCO3 19.7 mEq/l (22.0-26.0) L 05/21/25 17:57 ABG O2 Content 13.7 %vol (16.0-22.0) L 05/21/25 17:57 Total Hemoglobin 10.3 g/dL (12.0-18.0) L 05/21/25 17:57 Sodium 136 mmol/L (137-145) L 05/21/25 16:10 Potassium 5.8 mmol/L (3.4-5.0) H 05/21/25 16:10 Carbon Dioxide 20 mmol/L (22-30) L 05/21/25 16:10 Anion Gap 17 mmol/L (4-12) H 05/21/25 16:10 BUN 107 mg/dL (9-20) H* D 05/21/25 16:10 Creatinine 12.08 mg/dL (0.7-1.3) H 05/21/25 16:10 Estimated GFR 4 (59-) L 05/21/25 16:10 POC Capillary Glucose 156 mg/dl (65-105) H 05/21/25 19:38 Calcium 7.6 mg/dL (8.4-10.2) L 05/21/25 16:10 Phosphorus 5.3 mg/dL (2.5-4.5) H 05/21/25 16:10 Magnesium 3.0 mg/dL (1.6-2.3) H 05/21/25 16:10 Total Bilirubin 1.7 mg/dL (0.2-1.3) H 05/21/25 16:10 Ammonia 167 umol/L (9-30) H 05/21/25 16:10
--- NOTE | 2025-05-21 23:47 | ADMGEN ---
This patient, Jj Cuello, was admitted to IMU Room 213-01 at 2300. Patient/family oriented to hospital policies and general routines including ID bracelet, bed and alarms, visiting hours, pain management, procedures, bathroom and other care routines, personal items, smoking policy, room service/diet, and visiting hours. Information on how to activate the Rapid Response Team has been discussed. Patient/Family are encouraged to report perceived risks to care and to ask questions if they do not understand what they are told or what they should do.
[2025-05-22] VITALS (48 sets, daily range): BP systolic 94–212; BP diastolic 53–120; PULSE 51–94; RESP 10–20; TEMP 36.2–37; O2SAT 92–100
[2025-05-22 01:16] LABS: Ammonia 102 umol/L (9-30)
[2025-05-22 01:25] LABS: Anion Gap 19 mmol/L (4-12); Blood Urea Nitrogen 108 mg/dL (9-20); Calcium 8.0 mg/dL (8.4-10.2); Carbon Dioxide 19 mmol/L (22-30); Chloride 101 mmol/L (98-107); Estimated CRCL calculation 6 ml/min; Estimated Glomerular Filt Rate 4; Glucose 93 mg/dL (65-110); Potassium 4.8 mmol/L (3.4-5.0); Sodium 139 mmol/L (137-145)
[2025-05-22] MEDS: metroNIDAZOLE 500 MG/ISO 100ML 500 MG/100 ML BAG 100 MG IVPB ×3 (03:03→21:21)
[2025-05-22] MEDS: LACTULOSE 20 GM/30 ML UDC 40 GM PO (03:33)
[2025-05-22] MEDS: METOPROLOL TARTRATE INJ 5 MG/5 ML VIAL IV PUSH (04:18)
[2025-05-22 04:47] LABS: Hematocrit 30.7 % (42.0-52.0); Hemoglobin 10.1 g/dL (14.0-18.0); Immature Platelet Fraction Pct 2.7 % (0.9-11.2); Mean Corpuscular HGB Conc 32.9 g/dl (32-36); Mean Corpuscular Hemoglobin 33.1 pg (26-34); Mean Corpuscular Volume 100.7 fl (80-100); Platelet Count Result 37 k/mm3 (150-375); Red Blood Count 3.05 M/mm3 (4.6-6.20); White Blood Count 5.0 K/mm3 (4.5-10.0)
[2025-05-22 04:51] LABS: MRSA (PCR) NOT DETECTED (NOT DETECTE)
[2025-05-22 04:59] LABS: Ammonia 95 umol/L (9-30)
[2025-05-22 05:04] LABS: Anion Gap 19 mmol/L (4-12); Blood Urea Nitrogen 113 mg/dL (9-20); Calcium 8.1 mg/dL (8.4-10.2); Carbon Dioxide 19 mmol/L (22-30); Chloride 101 mmol/L (98-107); Estimated CRCL calculation 6 ml/min; Estimated Glomerular Filt Rate 4; Glucose 88 mg/dL (65-110); Potassium 5.1 mmol/L (3.4-5.0); Sodium 139 mmol/L (137-145)
--- NOTE | 2025-05-22 08:21 | P.CONGI_ITS ---
Assessment and Plan Assessment and plan (1) Encephalopathy, hepatic: Code(s): K72.90 - Hepatic failure, unspecified without coma Status: Acute (2) Thrombocytopenia: Code(s): D69.6 - Thrombocytopenia, unspecified Status: Acute (3) Cirrhosis, alcoholic: Qualifiers: Ascites presence: without ascites Qualified Code(s): K70.30 - Alcoholic cirrhosis of liver without ascites Code(s): K70.30 - Alcoholic cirrhosis of liver without ascites Status: Acute (4) Esophageal varices in alcoholic cirrhosis: Code(s): K70.30 - Alcoholic cirrhosis of liver without ascites; I85.10 - Secondary esophageal varices without bleeding Status: Acute (5) Hyperammonemia: Code(s): E72.20 - Disorder of urea cycle metabolism, unspecified Status: Acute (6) End stage renal disease: Code(s): N18.6 - End stage renal disease Status: Chronic (7) Erythropoietin deficiency anemia: Code(s): D63.1 - Anemia in chronic kidney disease Status: Acute (8) Altered mental status: Qualifiers: Altered mental status type: unspecified Qualified Code(s): R41.82 - Altered mental status, unspecified Code(s): R41.82 - Altered mental status, unspecified Status: Acute (9) Encephalopathy: Qualifiers: Encephalopathy type: hepatic Qualified Code(s): K76.82 - Hepatic encephalopathy Code(s): G93.40 - Encephalopathy, unspecified Status: Acute (10) Family history of colon cancer: Code(s): Z80.0 - Family history of malignant neoplasm of digestive organs Status: Acute (11) Personal history of colonic polyps: Code(s): Z86.0100 - Personal history of colon polyps, unspecified Status: Acute Plan 1. ETOH cirrhosis/ascites/Hx of hepatic encephalopathy/thrombocytopenia/elevated bilirubin/elevated ammonia/portal hypertension: MELD NA: 27. Decompensated. Patient admitted 05/2025 for AMS after missing 2 hemodialysis treatments. Patient has a Hx of hepatic encephalopathy, ammonia levels trending down since admission 167-->95. Ammonia elevation could be multifactorial including ESRD with missed HD days along with underlying cirrhosis. Patient still has altered mental status and was alert but not responding when seen in dialysis. Patient was given 2 lactulose enemas since admission and is on lactulose 40 g t.i.d. Medication prior to admission could not be confirmed but list shows that he was on lactulose 60 ml TID , Lasix 80 mg BID and nadolol 20 mg daily. No record of him taking spironolactone or Xifaxan. - Variceal screening: Per records the patient has a Hx of esophageal varices but I have no EGD reports available. Beta khurram: Nadolol 20 mg daily, continue BB. - Last paracentesis: 04/18/2019- diagnostic on 10 ml removed. Unclear if he has had a therapeutic paracentesis since that time. This admission CT showing moderate free fluid in the peritoneal cavity, unclear if the fluid is secondary to missed HD vs liver disease vs both. Abdomen was not significantly distended or firm on exam. - Paracentesis ordered with fluid analysis - Current diuretics: Lasix 80 mg BID but no spironolactone, unclear if diuretic monotherapy is due to risk hyperkalemia in ESRD patient on spironolactone or other reasons. Nephrology is on the patient's case, diuretics to be managed by Nephrology - Diet: 2 gram sodium diet. Fluid restriction: Per Nephrology if indicated - History of HE: YES. Continue lactulose and adjust dosing to have 2-3 BM's daily - Start Xifaxan 550 mg BID -Patient will need to follow up in the GI office outpatient for management if he is not already seen GI/hepatology else were 2. ESRD on HD: Prior to admission the patient had missed 2 HD days but is receiving dialysis today * Nephrology on case an managing 3. Family Hx colon cancer-father/personal Hx of colon polyps: * Patient due for repeat colonoscopy in November 2026 (5 year repeat) Thank you very much for allowing me to share in the care of this very complex patient. This report may have been done utilizing a voice recognition system. Attempts have been made to correct errors. However, there may be uncorrected grammatical, spelling, and recognition errors present. GI Consult Note Consult date/time: 05/22/25 08:21 Reason for consult: Chronic liver disease- Cirrhosis HPI: Jj Cuello is a 59 year old male with PMSH of genetic kidney disease, ESRD on HD, seizures, cardiomegaly, Hx of HE, esophageal varices, ETOH cirrhosis, erythropoietin deficiency anemia. He presented to the ER for AMS after missing 2 hemodialysis appointments. GI has been consulted for chronic liver disease- ETOH Cirrhosis. ENDOSCOPY HISTORY: EGD: [ ] Findings: [ ] Bx results: [ ] COLONOSCOPY: 12/05/[address] Last for family Hx colon cancer Findings: Terminal ileum: Distal 5 cm normal Ascending, transverse, descending, sigmoid colon and rectum including retroflexion normal Cecum: 5 mm sessile polyp removed with cold biopsy forceps without bleed No masses, AVMs, colitis or diverticulosis seen 5 year repeat recommended Bx results: Pathology report not available LABS AND STOOL STUDIES: Labs 05/22/2025: WBC 5, Hgb 10, Hct 31, MCV 101, platelets 37 Sodium 139, potassium 5.1, BUN 113, creatinine 12.53, GFR 4, calcium 8.1 Ammonia 95 Labs 05/21/2025: WBC 3.9, Hgb 9, Hct 28, MCV 100, platelets 37, INR 1.6 Sodium 136, potassium 5.8, BUN 107, creatinine 12.08, GFR 4, calcium 7.6 Total bilirubin 1.7, AST 18, ALT 14, Alkaline Phos 124, albumin 3.7 Phosphorus 5.3, magnesium 3.0 IMAGING: CT chest/abd/pelvis w/contrast 05/21/2025: IMPRESSION: 1. Severe cardiomegaly and severe multivessel coronary artery calcifications. Calcific changes of aortic valve cusps indicating some degree of aortic stenosis. Please correlate with echocardiographic findings. 2. Small bilateral pleural effusion. 3. Limited CT without IV contrast especially for solid viscera, neoplasms and vascular structures. 4. Contracted nodular liver and splenomegaly with prominent venous varices in the upper left abdomen. Moderate free fluid in the peritoneal cavity. Findings are suggestive of significant chronic liver disease with portal hypertension. [facility] Past Medical History Medical History (Updated 05/22/25 @ 10:51 by Martha Grimes APRN) Acute hyperkalemia Mitral insufficiency and aortic stenosis Esophageal varices in alcoholic cirrhosis Facial hematoma Pancytopenia Seizure Cirrhosis, alcoholic Acute respiratory failure Cirrhosis Renal osteodystrophy Erythropoietin deficiency anemia Thrombocytopenia Coagulopathy Encephalopathy, hepatic Alcoholic liver failure ESRD needing dialysis Surgical History Surgical History (Updated 05/22/25 @ 01:22 by Verenice García APRN) H/O arthroscopic knee surgery Bilateral knees H/O right knee surgery Hx of hernia repair H/O cataract removal with insertion of prosthetic lens History of vasectomy Status post biopsy of kidney Family History Family History Father Colon cancer Dementia Diabetes mellitus Mother Aneurysm Social History Social History (Updated 05/22/25 @ 01:23 by Verenice García APRN) Social History: The patient is single. 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 He has a daughter Deloris who is listed as his emergency contact. Code status: Full code Smoking packs per day: 2.5 Smoking cigarettes per day: 50.0 Years smoked: 43 Smoking pack-years: 107.50 Smoking status: Unknown if ever smoked Tobacco type: cigarettes Alcohol intake: former Alcohol use details: none since04/11/21 Substance use: never Substance use type: marijuana Other substance usage details: gummies Do You Feel Safe in your Home?: Yes Lack of Transportation: No Lack of Food: Never True Current Housing: I Have Housing Concerned About Future Housing: No Difficulty Paying Gas/Electric Bills: No Difficulty Paying for Meds: No Currently Unemployed: No Education: Master's Degree or Higher Difficulty w/ Childcare or Family Care: No Spiritual care concerns: No Meds Home Medications and Allergies Home Medications ?Medication ?Instructions ?Recorded ?Confirmed ?Type melatonin 3 mg tablet 9 mg PO HS Sleep 03/27/24 History levetiracetam 750 mg tablet 750 mg PO Q12H 30 days #60 tabs 08/21/24 05/22/25 Rx nadolol 20 mg tablet See Rx Instructions .Route 0 09/02/24 05/22/25 Rx .COMPLEX #90 tabs amlodipine 5 mg tablet 5 mg PO DAILY 10/13/2405/22 History sevelamer carbonate 800 mg tablet 800 mg PO .COMPLEX 0 10/13/24 05/22/25 History lactulose 10 gram/15 mL oral 40 g (60 mL) PO TID #3,00 0 mL 12/02/24 05/22/25 Rx solution furosemide 80 mg tablet See Rx Instructions .Route 0 02/23/25 05/22/25 Rx .COMPLEX #180 tabs hydralazine 25 mg tablet See Rx Instructions .Route 0 03/23/25 05/22/25 Rx .COMPLEX #270 tabs omeprazole 40 mg capsule,delayed 40 mg PO DAILY 05/22/25 History release isosorbide mononitrate 30 mg 30 mg PO QAM #30 tabs 11/2305/22/25 Rx tablet,extended release 24 hr pantoprazole 40 mg tablet,delayed 40 mg PO QAM #30 tab s 05/06/25 05/22/25 Rx release thiamine HCl (vitamin B1) 100 mg 100 mg PO QAM #30 tab s 05/06/25 05/22/25 Rx tablet (Vitamin B-1) folic acid 1 mg tablet See Rx Instructions .Route 1 07/11/24 05/22/25 Rx .COMPLEX #30 tabs Allergies Allergy/AdvReac Type Severity Reaction Status Date / Time No Known Allergies Allergy Unknown Verified 05/21/25 23:44 Vital Signs Vital Signs - 24 hr 05/21/25 14:38 05/21/25 14:51 05/21/25 14:54 Temperature 97.8 F Pulse Rate 72 67 Respiratory Rate 12 Blood Pressure 192/85 H Pulse Oximetry 100 100 Oxygen Delivery Room Air Room Air 05/21/25 14:54 05/21/25 15:30 05/21/25 15:47 Temperature 97.8 F Pulse Rate 67 57 L 54 L Respiratory Rate 13 12 10 L Blood Pressure 192/85 H Pulse Oximetry 100 100 100 Oxygen Delivery 05/21/25 16:00 05/21/25 17:46 05/21/25 18:01 Temperature Pulse Rate 54 L 75 63 Respiratory Rate 10 L 13 12 Blood Pressure 196/87 H 192/75 H 189/74 H Pulse Oximetry 100 99 99 Oxygen Delivery 05/21/25 18:16 05/21/25 18:46 05/21/25 19:36 Temperature Pulse Rate 71 53 L 56 L Respiratory Rate 12 12 12 Blood Pressure 197/74 H 202/77 H 194/71 H Pulse Oximetry 99 99 99 Oxygen Delivery 05/21/25 20:46 05/21/25 21:50 05/21/25 22:00 Temperature Pulse Rate 62 58 L 55 L Respiratory Rate 12 15 12 Blood Pressure 180/74 H 157/53 H Pulse Oximetry 100 100 100 Oxygen Delivery 05/21/25 23:08 11/21/25 00:00 05/22/25 00:00 Temperature 97.5 F L Pulse Rate 54 L 64 Respiratory Rate 15 16 Blood Pressure 157/53 H 187/60 H Pulse Oximetry 100 100 Oxygen Delivery Room Air 05/22/25 00:00 05/22/25 02:00 05/22/25 04:00 Temperature Pulse Rate 64 55 L Respiratory Rate Blood Pressure Pulse Oximetry Oxygen Delivery Room Air 05/22/25 04:00 05/22/25 04:00 05/22/25 04:18 Temperature 97.5 F L Pulse Rate 75 72 79 Respiratory Rate 16 Blood Pressure 193/68 H Pulse Oximetry 100 Oxygen Delivery 05/22/25 04:20 05/22/25 06:00 05/22/25 08:00 Temperature 98.0 F Pulse Rate 94 54 L Respiratory Rate 19 Blood Pressure 194/68 H 188/62 H Pulse Oximetry 99 Oxygen Delivery Results Labs 05/22/25 04:14 05/22/25 04:14 Labs: Short CBC 05/21/25 05/22/25 Range/Units 16:10 04:14 WBC 3.9 L 5.0 (4.5-10.0) K/mm3 Hgb 9.3 L 10.1 L (14.0-18.0) g/dL Hct 28.3 L 30.7 L (42.0-52.0) % Plt Count 37 L D 37 L (150-375) k/mm3 BMP 05/21/25 05/22/25 05/22/25 16:10 00:54 04:14 Sodium 136 L 139 139 Potassium 5.8 H 4.8 5.1 H Chloride 99 101 101 Carbon Dioxide 20 L 19 L 19 L BUN 107 H* D 108 H* 113 H* Creatinine 12.08 H 12.96 H 12.53 H Glucose 102 93 88 Calcium 7.6 L 8.0 L 8.1 L Liver Function 05/21/25 Range/Units 16:10 Total Bilirubin 1.7 H (0.2-1.3) mg/dL AST 18 (17-59) U/L ALT 14 (6-50) U/L Alkaline Phosphatase 124 (38-126) U/L Albumin 3.7 (3.5-5.1) g/dL
--- NOTE | 2025-05-22 09:15 | P.CONNP_ITS ---
Assessment and Plan Assessment and plan (1) End stage renal disease: Code(s): N18.6 - End stage renal disease Status: Chronic Assessment and Plan: * HD today * plan HD tomorrow since missed treatments (Sunday + Sunday) of this week * resume/continue outpatient schedule of Sun/Sun/Fridays while hospitalized * follow electrolytes, volume status, and clearance (2) Altered mental status: Qualifiers: Altered mental status type: unspecified Qualified Code(s): R41.82 - Altered mental status, unspecified Code(s): R41.82 - Altered mental status, unspecified Status: Acute Assessment and Plan: * presumed due to hepatic encephalopathy: * elevated ammonia levels on admission * suspected medication non-compliance (with lactulose) * also, known history of seizure disorder as well * CT of head negative * on lactulose enemas * transition to oral lactulose and mentation improves * rule out infection * follow mentation (3) Hyperkalemia: Code(s): E87.5 - Hyperkalemia Status: Acute Assessment and Plan: * due missed dialysis treatments * s/p medical management in ER * dialysis should further correct/stabilize (4) Cirrhosis: Code(s): K74.60 - Unspecified cirrhosis of liver Status: Acute Assessment and Plan: * known history * has been sober for the last 2 - 3 years * continue lactulose enemas * GI recommendations noted * empiric antibiotics for possible SBP * paracentesis planned (5) Hypertension: Code(s): I10 - Essential (primary) hypertension Status: Chronic Assessment and Plan: * elevated at this time * given mentation, oral BP medications may be difficult to administer * use PRN IV medications for now * resume oral medications as mentation improves... * follow trend of hemodynamics (6) Anemia: Code(s): D64.9 - Anemia, unspecified Status: Chronic Assessment and Plan: * due to ESRD with contributions from liver disease * Epogen with HD * follow trend of H/H (7) Pancytopenia: Code(s): D61.818 - Other pancytopenia Status: Acute Assessment and Plan: * somewhat of a chronic issue * thought to be secondary to liver disease * anemia further complicated by ESRD (8) Seizure disorder: Code(s): G40.909 - Epilepsy, unspecified, not intractable, without status epilepticus Status: Acute Assessment and Plan: * known history of seizure disorder * on IV Keppra (given NPO status) * no evidence of seizure activity at this time I will continue to follow the patient with you while he remains hospitalized and make further recommendations as deemed necessary. Thank you for allowing me to participate in the care of this patient. L History of Present Illness Reason for Consult Consult date: 05/22/25 Reason for consult: end stage renal disease Chief Complaint Chief complaint: Altered Mental Status and ESRD History of Present Illness Narrative: The patient is a 59-year-old male with a past medical history as outlined below who presented to [facility] Emergency Room yesterday for altered mental status. From review of the records as well as discussion with his outpatient dialysis clinic, he missed his dialysis treatment on Sunday of this week due to diarrhea and subsequently missed his treatment on Sunday as he apparently vomited on himself on his way to treatment - he subsequently returned home to change clothes but he apparently never came back for his scheduled treatment on that day. the staff at his outpatient dialysis unit attempted to call him yesterday to ascertain if he would be coming for his treatment on Sunday but they were unable to get a hold of him. his friend, who brought him in to the emergency room, states that he did receive a text from the patient stating that he was sick and had on and off vomiting the day before yesterday and after learning that he missed his dialysis treatments earlier this week, checked on him yesterday and found him quite altered. He called 911 and the patient was subsequently transported to the emergency room by EMS. Workup and evaluation emergency room demonstrated the patient to be hemodynamically stable (if not hypertensive with a systolic BP in the 180s to 190s) and afebrile with stable oxygen saturations. However, he was quite altered/encephalopathic in that he was unable answer simple questions or follow simple commands. During his stay in the ER, his mentation improved in that he was a bit more responsive with stimulation and was moving all extremities but still not back to baseline mentation. Routine blood test demonstrated his known pancytopenia with a white blood cell count of 3.9, hemoglobin 9.3, platelet count 37 along with a sodium of 136, potassium 5.8, bicarb 20, BUN 107, creatinine 12.08, glucose 102, calcium 7.6, phosphorus 5.3, magnesium 3.0, normal AST/ALT/alkaline phosphatase but a mildly elevated total bilirubin at 1.7, albumin 3.7, and a ammonia level of 167. His ABG showed a pH of 7.439, pCO2 of 29.8, PO2 of 92.5 on room air. His EKG showed changes consistent with his noted hyperkalemia but no evidence of ischemia. A subsequent CT scan of his head demonstrated no acute intracranial pathology with a chest x-ray showing cardiomegaly, atherosclerotic aorta, and mild vascular congestion. A subsequent CT scan of the chest/abdomen/pelvis was significant for severe cardiomegaly, severe multi-vessel coronary artery calcifications, small bilateral pleural effusions, and a contracted nodular liver and splenomegaly with prominent venous varices in the upper left abdomen as well as moderate free fluid in the peritoneal cavity. He received medical management for his hyperkalemia with repeat labs showing improvement in his potassium level and was initiated on lactulose enemas for his presumed hepatic encephalopathy. Appropriate cultures were obtained and he was initiated on antibiotics on the presumption of possible spontaneous bacterial peritonitis and he was subsequently admitted to the hospital for further evaluation therapy. Since his admission, his mental status still not has returned back to its normal baseline (only A & O x 1 currently) and he has been having issues with vomiting earlier this morning. He has has similar hospitalizations in the past with regard to altered mentation due to a combination of hepatic encephalopathy and suspected post dialysis seizures. Renal consultation was requested due to his end-stage renal disease. The patient normally dialyzes on a Sunday, Sunday, Sunday dialysis schedule at [facility] under the care of Dr. Bashir Norris. From a dialysis perspective, he has been doing reasonably well with relative stability in his monthly labs and volume status. Due to his work schedule, he sometimes has to reschedule his dialysis treatments. however, as already mentioned above, he missed his dialysis treatment on Sunday as well as Sunday due to GI symptoms of diarrhea and vomiting, respectively. Currently, at the time my evaluation, he is receiving dialysis and appears to be tolerating it reasonably well (seen on HD at 9:05am) but remains confused/encephalopathic. Review of Systems 2 Review of Systems: As per HPI. [facility] Past Medical History Medical History Acute hyperkalemia Mitral insufficiency and aortic stenosis Esophageal varices in alcoholic cirrhosis Facial hematoma Pancytopenia Seizure Cirrhosis, alcoholic Acute respiratory failure Cirrhosis Renal osteodystrophy Erythropoietin deficiency anemia Thrombocytopenia Coagulopathy Encephalopathy, hepatic Alcoholic liver failure ESRD needing dialysis Surgical History Surgical History H/O arthroscopic knee surgery Bilateral knees H/O right knee surgery Hx of hernia repair H/O cataract removal with insertion of prosthetic lens History of vasectomy Status post biopsy of kidney Family History Family History Father Colon cancer Dementia Diabetes mellitus Mother Aneurysm Social History Social History Social History: The patient is single. 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 He has a daughter Deloris who is listed as his emergency contact. Code status: Full code Smoking packs per day: 2.5 Smoking cigarettes per day: 50.0 Years smoked: 43 Smoking pack-years: 107.50 Smoking status: Unknown if ever smoked Tobacco type: cigarettes Alcohol intake: former Alcohol use details: none since04/11/21 Substance use: never Substance use type: marijuana Other substance usage details: gummies Do You Feel Safe in your Home?: Yes Lack of Transportation: No Lack of Food: Never True Current Housing: I Have Housing Concerned About Future Housing: No Difficulty Paying Gas/Electric Bills: No Difficulty Paying for Meds: No Currently Unemployed: No Education: Master's Degree or Higher Difficulty w/ Childcare or Family Care: No Spiritual care concerns: No Meds Home Medications and Allergies Home Medications ?Medication ?Instructions ?Recorded ?Confirmed ?Type melatonin 3 mg tablet 9 mg PO HS Sleep 03/27/24 History levetiracetam 750 mg tablet 750 mg PO Q12H 30 days #60 tabs 08/21/24 05/22/25 Rx nadolol 20 mg tablet See Rx Instructions .Route 0 09/02/24 05/22/25 Rx .COMPLEX #90 tabs amlodipine 5 mg tablet 5 mg PO DAILY 10/13/2405/22 History sevelamer carbonate 800 mg tablet 800 mg PO .COMPLEX 0 10/13/24 05/22/25 History lactulose 10 gram/15 mL oral 40 g (60 mL) PO TID #3,00 0 mL 12/02/24 05/22/25 Rx solution furosemide 80 mg tablet See Rx Instructions .Route 0 02/23/25 05/22/25 Rx .COMPLEX #180 tabs hydralazine 25 mg tablet See Rx Instructions .Route 0 03/23/25 05/22/25 Rx .COMPLEX #270 tabs omeprazole 40 mg capsule,delayed 40 mg PO DAILY 05/22/25 History release isosorbide mononitrate 30 mg 30 mg PO QAM #30 tabs 11/2305/22/25 Rx tablet,extended release 24 hr pantoprazole 40 mg tablet,delayed 40 mg PO QAM #30 tab s 05/06/25 05/22/25 Rx release thiamine HCl (vitamin B1) 100 mg 100 mg PO QAM #30 tab s 05/06/25 05/22/25 Rx tablet (Vitamin B-1) folic acid 1 mg tablet See Rx Instructions .Route 1 07/11/24 05/22/25 Rx .COMPLEX #30 tabs Allergies Allergy/AdvReac Type Severity Reaction Status Date / Time No Known Allergies Allergy Unknown Verified 05/21/25 23:44 Vital Signs Vital Signs Temp Pulse Resp BP Pulse Ox O2 Del Method O2 Flow Rate 05/22/25 09:15 51 L 198/71 H 05/22/25 09:00 52 L 198/76 H 05/22/25 08:45 52 L 199/76 H 05/22/25 08:30 55 L 201/78 H 05/22/25 08:11 53 L 204/82 H 05/22/25 08:05 98.4 F 53 L 18 200/84 H 97 05/22/25 08:00 65 05/22/25 08:00 98.0 F 54 L 19 188/62 H 99 05/22/25 07:35 Room Air 05/22/25 06:00 94 05/22/25 04:20 194/68 H 05/22/25 04:18 79 05/22/25 04:00 72 05/22/25 04:00 97.5 F L 75 16 193/68 H 100 05/22/25 04:00 Room Air 05/22/25 02:00 55 L 05/22/25 00:00 64 05/22/25 00:00 Room Air 05/22/25 00:00 97.5 F L 64 16 187/60 H 100 05/21/25 23:08 54 L 15 157/53 H 100 05/21/25 22:00 55 L 12 157/53 H 100 05/21/25 21:50 58 L 15 100 05/21/25 20:46 62 12 180/74 H 100 05/21/25 19:36 56 L 12 194/71 H 99 05/21/25 18:46 53 L 12 202/77 H 99 05/21/25 18:16 71 12 197/74 H 99 05/21/25 18:01 63 12 189/74 H 99 05/21/25 17:46 75 13 192/75 H 99 05/21/25 16:00 54 L 10 L 196/87 H 100 05/21/25 15:47 54 L 10 L 100 05/21/25 15:30 57 L 12 100 Exam 2 Narrative: GENERAL APPEARANCE: well developed well nourished male in no acute distress HEENT: normocephalic, atraumatic, normal conjunctiva and sclera, nares patient NECK: no lymphadenopathy, thyromegaly, or JVD MOUTH: normal lips, teeth, and gums CARDIOVASCULAR: RRR, normal S1 and S2, no rub RESPIRATORY: coarse breath spimds ABDOMEN: soft, nontender, nondistended, positive bowel sounds present EXTREMITIES: no evidence of cyanosis, clubbing, or edema NEUROLOGICAL: awakens with significant stimulation but then falls back to sleep Results Lab Results 05/22/25 04:14 05/22/25 04:14 Lab results: Most recent lab results ABG pH 7.506 (7.350-7.450) H* 05/22/25 13:17 ABG pCO2 30.5 mmHg (35.0-45.0) L 05/22/25 13:17 ABG pO2 351.0 mmHg (80.0-100.0) H 05/22/25 13:17 ABG HCO3 23.6 mEq/l (22.0-26.0) 05/22/25 13:17 ABG O2 Saturation 99.8 % (95.0-100.0) 05/22/25 13:17 Calcium 8.1 mg/dL (8.4-10.2) L 05/22/25 04:14 Phosphorus 5.3 mg/dL (2.5-4.5) H 05/21/25 16:10 Magnesium 3.0 mg/dL (1.6-2.3) H 05/21/25 16:10
[2025-05-22] MEDS: SODIUM CHLORIDE 0.9% IV 1,000 ML 999 ML IV CONT (09:20)
[2025-05-22] MEDS: EPOETIN ALFA-EPBX 4,000 UNITS/ML VIAL 4000 UNITS IV PUSH (09:20)
[2025-05-22 11:39] LABS: INR 1.5; Prothrombin Time 17.9 Seconds (11.1-14.7)
[2025-05-22 11:40] LABS: Alanine Aminotransferase 12 U/L (6-50); Albumin Level 4.0 g/dL (3.5-5.1); Alkaline Phosphatase 157 U/L (38-126); Aspartate Amino Transferase 20 U/L (17-59); Bilirubin,Total 2.3 mg/dL (0.2-1.3); Total Protein 7.5 g/dL (6.3-8.2)
[2025-05-22 12:13] LABS: Alveolar/Arterial O2 Gradient 525.6 mmHg; Carboxyhemoglobin 1.1 % THb (0-2.0); Fractional Inspired Oxygen 100 %; HCO3 ABG 27.1 mEq/l (22.0-26.0); Methemoglobin ABG 0.1 %THb (0-1.5); Oxygen Content ABG 18.3 %vol (16.0-22.0); Oxygen Saturation ABG 98.9 % (95.0-100.0); PCO2 ABG 43.2 mmHg (35.0-45.0); PO2 ABG 144.2 mmHg (80.0-100.0); PO2 FiO2 Ratio Arterial Blood 1.44 %; Reduced Hemoglobin 1.3 %THb (0-5.0)
[2025-05-22 12:14] LABS: Modified Allen's Test Pass; Site Drawn RIGHT RADIAL
[2025-05-22 12:15] LABS: Liters per Minute 15.0 LPM
[2025-05-22] MEDS: ETOMIDATE 20 MG/10 ML AMPUL IV PUSH (12:26)
--- NOTE | 2025-05-22 12:26 | ECG_ITS ---
Test Date: 2025-05-22 12:36:48 Measurements Intervals [place] Rate: 75 P: 73 OR: 242 QRS: 68 QRSD: 113 T: 60 QT: 475 QTc: 531 Interpretive Statements SINUS RHYTHM WITH FIRST DEGREE AV BLOCK INCOMPLETE RIGHT BUNDLE BRANCH BLOCK [90+ ms QRS DURATION, TERMINAL R IN V1/V2, 40+ ms S IN I/aVL/V4/V5/V6] MODERATE ST DEPRESSION [0.05+ mV ST DEPRESSION] PROLONGED QT INTERVAL WARNING: DATA QUALITY MAY AFFECT INTERPRETATION INTERPRETATION BASED ON A DEFAULT AGE OF 40 YEARS Compared to ECG 05/21/2025 15:02:48 ST (T wave) deviation now present Electronically Signed On 05-22-2025 19:06:05 TELEPHONE ANSWERING SERVICE OPERATOR by Emiliano Joseph M.D.
[2025-05-22] MEDS: ROCURONIUM BROMIDE 50 MG/5 ML VIAL IV PUSH (12:27)
[2025-05-22] MEDS: MIDAZOLAM HCL (*CRX) 2 MG/2 ML VIAL 4 MG IV PUSH (12:31)
[2025-05-22] MEDS: PROPOFOL IV EMULSION 100 ML 10.95 MG IV CONT ×2 (12:36→20:24)
--- NOTE | 2025-05-22 12:42 | WPDCNINT ---
Assessment and Plan Assessment and plan (1) Acute respiratory failure: Code(s): J96.00 - Acute respiratory failure, unspecified whether with hypoxia or hypercapnia Status: Resolved Assessment and Plan: Acute respiratory failure secondary to hepatic encephalopathy and pulmonary edema which is likely secondary to missed hemodialysis session and congestive heart failure Patient emergently transferred to ICU from dialysis center. He was unresponsive, hypoxic in respiratory distress Patient emergently intubated in the ICU and now placed on invasive mechanical ventilation. Large amount of frothy white secretions seen in the oropharynx and through the ET tube at the time of intubation Ventilator settings reviewed. Repeat ABG ordered. Chest x-ray ordered and pending. Patient was dialyzed once and will be dialyzed again tomorrow Management of hepatic encephalopathy as below Recent echocardiogram done last month reviewed Summary 1. Complete two-dimensional, color flow and Doppler transthoracic echocardiogram is performed. 2. Left ventricular chamber dimension is normal. 3. Left ventricular systolic function is normal, estimated at 60-65. 4. There is mild concentric increased left ventricular wall thickness. 5. The left ventricular diastolic function is abnormal. 6. E/e' 18 is elevated. 7. Left atrial chamber dimension is moderately enlarged. 8. Right atrial chamber dimension is mildly enlarged. 9. There is moderate aortic valve sclerosis. 10. There is mild aortic valve stenosis with a peak velocity of 313 cm/s, mean gradient of 25 mmHg, and aortic valve area of 1.7 cm2. 11. The mitral valve has a moderately calcified annulus. 12. There is trace mitral valve regurgitation. 13. There is trace tricuspid valve regurgitation. 14. No pulmonary hypertension, estimated pulmonary arterial systolic pressure is 33 mmHg. 15. The aortic root size at the sinus of Valsalva is borderline dilated at 4.1 cm. 16. There is trivial pericardial effusion. (2) Pulmonary edema: Code(s): J81.1 - Chronic pulmonary edema Status: Acute Assessment and Plan: See above (3) Hypertension: Code(s): I10 - Essential (primary) hypertension Status: Chronic Assessment and Plan: Patient now intubated and sedated. I will hold antihypertensive medications. (4) Hyperammonemia: Code(s): E72.20 - Disorder of urea cycle metabolism, unspecified Status: Acute Assessment and Plan: Secondary to cirrhosis. Gastric tube will be placed. Will continue rifaximin and lactulose as ordered per tube (5) Encephalopathy, hepatic: Code(s): K72.90 - Hepatic failure, unspecified without coma Status: Acute Assessment and Plan: Her head CT at the time of presentation was unremarkable for acute change ABG did not show hypercarbia Elevated ammonia will be managed as above Since patient was hypotensive I will repeat head CT to make sure patient does not have any head bleed as he is also thrombocytopenic. 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 He also has esophageal varices. INR 1.5 Management of elevated ammonia as above Patient is currently on antibiotics for SBP prophylaxis and paracentesis has been ordered Patient evaluated by GI (7) Esophageal varices in alcoholic cirrhosis: Code(s): K70.30 - Alcoholic cirrhosis of liver without ascites; I85.10 - Secondary esophageal varices without bleeding Status: Acute Assessment and Plan: No objective sign of active bleeding IV Protonix (8) Thrombocytopenia: Code(s): D69.6 - Thrombocytopenia, unspecified Status: Acute Assessment and Plan: Secondary to cirrhosis Monitor Transfuse if needed (9) ESRD needing dialysis: Code(s): N18.6 - End stage renal disease; Z99.2 - Dependence on renal dialysis Status: Chronic Assessment and Plan: Patient missed his last 2 dialysis session is currently on volume overload [id number] Patient received his dialysis this morning which was cut short by 10 minutes Nephrology following Will plan for another session tomorrow (10) Seizure disorder: Code(s): G40.909 - Epilepsy, unspecified, not intractable, without status epilepticus Status: Acute Assessment and Plan: Continue Bernice Currently on propofol infusion Plan DVT prophylaxis -S CD Stress ulcer prophylaxis -protonix Nutrition -NPO Code Status - Full Code Total Critical Care Time - 35 minutes Due to a high probability of clinically significant, life threatening deterioration, the patient required my highest level of preparedness to intervene emergently and I personally spent this critical care time directly and personally managing the patient. This critical care time included obtaining a history; examining the patient; pulse oximetry; ordering and review of studies; arranging urgent treatment with development of a management plan; evaluation of patient's response to treatment; frequent reassessment; and discussions with other providers. It was exclusive of separately billable procedures and treating other patients and teaching time. Please see Assessment and Plan section and the rest of the note for further information on patient assessment and treatment Marketing Budget Analyst Consult Note Consult date: 05/22/25 Time Seen: 12:15 Reason for consult: Acute respiratory failure, hepatic encephalopathy HPI: Jj Cuello is a 59 year old male with past medical history of cirrhosis secondary to alcoholic liver disease and end-stage renal disease on dialysis Sunday was brought to ER yesterday with altered mental status. As per reports in sign-out, Patient had missed 2 sessions of dialysis. When his friends checked up on him yesterday and found him to be altered and called the ambulance. In ER patient was able to follow some simple commands but did not answer any questions. Head CT was unremarkable for any acute change Additional workup in the ER showed His white count was 3.9. H&H is 9.3 and 28.3. His platelet levels 37. His sodium is 136, potassium 5.8, anion gap 17, BUN 107, creatinine 12.08, estimated GFR 4, and glucose 156. Calcium is low at 7.6 and magnesium is 3.0 with phosphorus 5.3. Ammonia level 167. Total bilirubin 1.7. Head CT was read as stable exam compared to previous studies. No gross intracranial mass effect or hemorrhage. Chest x-ray was read as cardiomegaly, atherosclerotic aorta and mild vascular congestion of the lungs. Chest abdomen pelvis CT was read as a followingIMPRESSION: 1. Severe cardiomegaly and severe multivessel coronary artery calcifications. Calcific changes of aortic valve cusps indicating some degree of aortic stenosis. Please correlate with echocardiographic findings. 2. Small bilateral pleural effusion. 3. Limited CT without IV contrast especially for solid viscera, neoplasms and vascular structures. 4. Contracted nodular liver and splenomegaly with prominent venous varices in the upper left abdomen. Moderate free fluid in the peritoneal cavity. Findings are suggestive of significant chronic liver disease with portal hypertension Patient was admitted to the hospital and was given a dose of Rocephin for possible SBP. Nephrology and GI were consulted. A paracentesis was ordered under ultrasound guidance. Hyperkalemia was treated with D50, calcium gluconate, IV insulin, sodium bicarb, and Lokelma in the emergency room. He was also given a lactulose enema in the emergency room. This morning when patient was receiving dialysis he became unresponsive. An ABG done at that time did not show hypercarbia and blood glucose was adequate she was emergently transferred to ICU On my evaluation patient was unresponsive and respiratory distress hypoxic and diaphoretic patient was emergently intubated in the ICU. Large amount of frothy white secretions were seen. Patient is now intubated and sedated. Patient is unable to provide any further meaningful history Review of Systems Review of Systems: ROS unobtainable: Yes unobtainable due to endotracheal tube, unobtainable due to medical condition and unobtainable due to mental status [facility] Past Medical History Medical History Acute hyperkalemia Mitral insufficiency and aortic stenosis Esophageal varices in alcoholic cirrhosis Facial hematoma Pancytopenia Seizure Cirrhosis, alcoholic Acute respiratory failure Cirrhosis Renal osteodystrophy Erythropoietin deficiency anemia Thrombocytopenia Coagulopathy Encephalopathy, hepatic Alcoholic liver failure ESRD needing dialysis Surgical History Surgical History H/O arthroscopic knee surgery Bilateral knees H/O right knee surgery Hx of hernia repair H/O cataract removal with insertion of prosthetic lens History of vasectomy Status post biopsy of kidney Family History Family History Father Colon cancer Dementia Diabetes mellitus Mother Aneurysm Social History Social History Social History: The patient is single. 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 He has a daughter Deloris who is listed as his emergency contact. Code status: Full code Smoking packs per day: 2.5 Smoking cigarettes per day: 50.0 Years smoked: 43 Smoking pack-years: 107.50 Smoking status: Unknown if ever smoked Tobacco type: cigarettes Alcohol intake: former Alcohol use details: none since04/11/21 Substance use: never Substance use type: marijuana Other substance usage details: gummies Do You Feel Safe in your Home?: Yes Lack of Transportation: No Lack of Food: Never True Current Housing: I Have Housing Concerned About Future Housing: No Difficulty Paying Gas/Electric Bills: No Difficulty Paying for Meds: No Currently Unemployed: No Education: Master's Degree or Higher Difficulty w/ Childcare or Family Care: No Spiritual care concerns: No Meds Home Medications and Allergies Home Medications ?Medication ?Instructions ?Recorded ?Confirmed ?Type melatonin 3 mg tablet 9 mg PO HS Sleep 03/27/24 05/22/25 History levetiracetam 750 mg tablet 750 mg PO Q12H 30 days #60 tabs 08/21/24 05/22/25 Rx nadolol 20 mg tablet See Rx Instructions .Route 09/02/24 05/22/25 Rx .COMPLEX #90 tabs amlodipine 5 mg tablet 5 mg PO DAILY 10/13/24 05/22/25 History sevelamer carbonate 800 mg tablet 800 mg PO .COMPLEX 10/13/24 05/22/25 History lactulose 10 gram/15 mL oral 40 g (60 mL) PO TID #3,000 mL 12/02/24 05/22/25 Rx solution furosemide 80 mg tablet See Rx Instructions .Route 02/23/25 05/22/25 Rx .COMPLEX #180 tabs hydralazine 25 mg tablet See Rx Instructions .Route 03/23/25 05/22/25 Rx .COMPLEX #270 tabs omeprazole 40 mg capsule,delayed 40 mg PO DAILY 05/02/25 05/22/25 History release isosorbide mononitrate 30 mg 30 mg PO QAM #30 tabs 05/06/25 05/22/25 Rx tablet,extended release 24 hr pantoprazole 40 mg tablet,delayed 40 mg PO QAM #30 tabs 05/06/25 05/22/25 Rx release thiamine HCl (vitamin B1) 100 mg 100 mg PO QAM #30 tabs 05/06/25 05/22/25 Rx tablet (Vitamin B-1) folic acid 1 mg tablet See Rx Instructions .Route 05/11/25 05/22/25 Rx .COMPLEX #30 tabs Allergies Allergy/AdvReac Type Severity Reaction Status Date / Time No Known Allergies Allergy Unknown Verified 05/21/25 23:44 Vital Signs Vital Signs - 24 hr 05/21/25 14:38 05/21/25 14:51 05/21/25 14:54 Temperature 36.6 C Pulse Rate 72 67 Respiratory Rate 12 Blood Pressure 192/85 H Pulse Oximetry 100 100 Oxygen Delivery Room Air Room Air Fraction of Inspired Oxygen 05/21/25 14:54 05/21/25 15:30 05/21/25 15:47 Temperature 36.6 C Pulse Rate 67 57 L 54 L Respiratory Rate 13 12 10 L Blood Pressure 192/85 H Pulse Oximetry 100 100 100 Oxygen Delivery Fraction of Inspired Oxygen 05/21/25 16:00 05/21/25 17:46 05/21/25 18:01 Temperature Pulse Rate 54 L 75 63 Respiratory Rate 10 L 13 12 Blood Pressure 196/87 H 192/75 H 189/74 H Pulse Oximetry 100 99 99 Oxygen Delivery Fraction of Inspired Oxygen 05/21/25 18:16 05/21/25 18:46 05/21/25 19:36 Temperature Pulse Rate 71 53 L 56 L Respiratory Rate 12 12 12 Blood Pressure 197/74 H 202/77 H 194/71 H Pulse Oximetry 99 99 99 Oxygen Delivery Fraction of Inspired Oxygen 05/21/25 20:46 05/21/25 21:50 05/21/25 22:00 Temperature Pulse Rate 62 58 L 55 L Respiratory Rate 12 15 12 Blood Pressure 180/74 H 157/53 H Pulse Oximetry 100 100 100 Oxygen Delivery Fraction of Inspired Oxygen 05/21/25 23:08 05/22/25 00:00 05/22/25 00:00 Temperature 36.4 C L Pulse Rate 54 L 64 Respiratory Rate 15 16 Blood Pressure 157/53 H 187/60 H Pulse Oximetry 100 100 Oxygen Delivery Room Air Fraction of Inspired Oxygen 05/22/25 00:00 05/22/25 02:00 05/22/25 04:00 Temperature Pulse Rate 64 55 L Respiratory Rate Blood Pressure Pulse Oximetry Oxygen Delivery Room Air Fraction of Inspired Oxygen 05/22/25 04:00 05/22/25 04:00 05/22/25 04:18 Temperature 36.4 C L Pulse Rate 75 72 79 Respiratory Rate 16 Blood Pressure 193/68 H Pulse Oximetry 100 Oxygen Delivery Fraction of Inspired Oxygen 05/22/25 04:20 05/22/25 06:00 05/22/25 07:35 Temperature Pulse Rate 94 Respiratory Rate Blood Pressure 194/68 H Pulse Oximetry Oxygen Delivery Room Air Fraction of Inspired Oxygen 05/22/25 08:00 05/22/25 08:00 05/22/25 08:05 Temperature 36.7 C 36.9 C Pulse Rate 54 L 65 53 L Respiratory Rate 19 18 Blood Pressure 188/62 H 200/84 H Pulse Oximetry 99 97 Oxygen Delivery Fraction of Inspired Oxygen 05/22/25 08:11 05/22/25 08:30 05/22/25 08:45 Temperature Pulse Rate 53 L 55 L 52 L Respiratory Rate Blood Pressure 204/82 H 201/78 H 199/76 H Pulse Oximetry Oxygen Delivery Fraction of Inspired Oxygen 05/22/25 09:00 05/22/25 09:15 05/22/25 09:30 Temperature Pulse Rate 52 L 51 L 61 Respiratory Rate Blood Pressure 198/76 H 198/71 H 191/80 H Pulse Oximetry Oxygen Delivery Fraction of Inspired Oxygen 05/22/25 09:45 05/22/25 10:00 05/22/25 10:00 Temperature Pulse Rate 58 L 55 L 55 L Respiratory Rate Blood Pressure 201/77 H 194/74 H Pulse Oximetry Oxygen Delivery Fraction of Inspired Oxygen 05/22/25 10:15 05/22/25 10:30 05/22/25 10:45 Temperature Pulse Rate 56 L 54 L 57 L Respiratory Rate Blood Pressure 187/73 H 195/77 H 181/77 H Pulse Oximetry Oxygen Delivery Fraction of Inspired Oxygen 05/22/25 11:00 05/22/25 11:15 05/22/25 11:30 Temperature Pulse Rate 60 63 67 Respiratory Rate Blood Pressure 189/76 H 183/76 H 210/87 H Pulse Oximetry Oxygen Delivery Fraction of Inspired Oxygen 05/22/25 11:45 05/22/25 12:00 05/22/25 12:32 Temperature 36.4 C L Pulse Rate 69 71 69 Respiratory Rate 12 Blood Pressure 212/120 H 207/82 H 204/84 H Pulse Oximetry 94 Oxygen Delivery Fraction of Inspired Oxygen 05/22/25 12:36 05/22/25 12:38 Temperature Pulse Rate 77 Respiratory Rate 20 Blood Pressure Pulse Oximetry Oxygen Delivery Fraction of Inspired Oxygen 100 Exam Narrative: General: Pt is drowsy unresponsive and in respiratory distress, diaphoretic Lungs/Chest: Trachea central bilateral crackles, tachypnea, use of accessory muscles Cardiac: RRR. Normal S1 S2. No murmurs Circulation: Pedal pulses are intact and symmetrical. Feet are warm Abdomen: Decreased bowel sounds.. Soft. NT. ND. Extremities: No pedal edema : Patient has a diaper on Neurologic: Unresponsive, PERRL Results Labs 05/22/25 04:14 05/22/25 04:14 Labs: Impressions Head CT 05/21/25 15:13 IMPRESSION: 1. Stable exam compared to previous studies. 2. No gross intracranial mass effect or hemorrhage. Chest X-Ray 05/21/25 18:11 IMPRESSION: 1. Cardiomegaly, atherosclerotic aorta and mild vascular congestion of the lungs. Chest/Abdomen/Pelvis CT 05/21/25 19:21 IMPRESSION: 1. Severe cardiomegaly and severe multivessel coronary artery calcifications. Calcific changes of aortic valve cusps indicating some degree of aortic stenosis. Please correlate with echocardiographic findings. 2. Small bilateral pleural effusion. 3. Limited CT without IV contrast especially for solid viscera, neoplasms and vascular structures. 4. Contracted nodular liver and splenomegaly with prominent venous varices in the upper left abdomen. Moderate free fluid in the peritoneal cavity. Findings are suggestive of significant chronic liver disease with portal hypertension. Short CBC 05/21/25 05/22/25 Range/Units 16:10 04:14 WBC 3.9 L 5.0 (4.5-10.0) K/mm3 Hgb 9.3 L 10.1 L (14.0-18.0) g/dL Hct 28.3 L 30.7 L (42.0-52.0) % Plt Count 37 L D 37 L (150-375) k/mm3 BMP 05/21/25 05/22/25 05/22/25 16:10 00:54 04:14 Sodium 136 L 139 139 Potassium 5.8 H 4.8 5.1 H Chloride 99 101 101 Carbon Dioxide 20 L 19 L 19 L BUN 107 H* D 108 H* 113 H* Creatinine 12.08 H 12.96 H 12.53 H Glucose 102 93 88 Calcium 7.6 L 8.0 L 8.1 L Liver Function 05/21/25 05/22/25 Range/Units 16:10 11:01 Total Bilirubin 1.7 H 2.3 H (0.2-1.3) mg/dL Direct Bilirubin 0.0 (0-0.3) mg/dL AST 18 20 (17-59) U/L ALT 14 12 (6-50) U/L Alkaline Phosphatase 124 157 H (38-126) U/L Albumin 3.7 4.0 (3.5-5.1) g/dL Quality VTE Prophylaxis VTE prophylaxis: mechanical ordered Hospitalist MIPS Advance Care Plan I have confirmed that the patient's Advanced Care Plan is present, code status is documented, or surrogate decision maker is listed in patient medical record.: Yes Medication Reconciliation I have utilized all available resources to obtain, update and review the patients current medications (includes all prescriptions, OTC, herbals, cannabis, and nutritional supplements).: Yes
--- NOTE | 2025-05-22 12:46 | WPDPROCEDUR ---
Procedures Intubation Intubation Date: 05/22/25 Intubation Time: 12:15 Consent: emergent procedure A pre-procedural Time-Out was completed immediately before starting the procedure and confirmed: Patient Identification, Site, Procedure, Patient Position and the Availability of Requisite Equipment: Yes Sedative: etomidate Mg given: 20 Paralytic: rocuronium Mg given: 50 Laryngoscope: fiber optic video scope Assist device used: fiber optic device ET tube size: 8 Tube secured depth (cm): 25 Tube secured location: lips Tube placement confirmation: visualized tube passing through cords, equal breath sounds bilaterally and confirmation by capnometry Patient tolerated procedure: no complications Intubation complications: none Additional comments: Copious secretions consistent with pulmonary edema.
--- NOTE | 2025-05-22 12:51 | P.PNCROSS_ITS ---
Event Note Event Note Event Note: Responded to rapid response at dialysis unit. Patient was nonresponsive for st ernal rub, verbal or tactile stimuli. Discussed with lsat instructor for possible intubation and transfer to ICU.
--- NOTE | 2025-05-22 12:51 | PM.EVENT ---
Event Note Event Note Event Note: Responded to rapid response at dialysis unit. Patient was nonresponsive for sternal rub, verbal or tactile stimuli. Discussed with trade union official for possible intubation and transfer to ICU.
--- NOTE | 2025-05-22 12:53 | P.PNIM_ITS ---
Progress Note: A&P Assessment and Plan (1) Hypertension: Code(s): I10 - Essential (primary) hypertension Status: Chronic Assessment and Plan: Patient now intubated and sedated. Hold antihypertensive medications. (2) Hyperammonemia: Code(s): E72.20 - Disorder of urea cycle metabolism, unspecified Status: Acute Assessment and Plan: Secondary to cirrhosis. Gastric tube will be placed. 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 He also has esophageal varices. INR 1.5 Management of elevated ammonia as above Patient is currently on antibiotics for SBP prophylaxis and paracentesis has been ordered Patient evaluated by GI (5) Esophageal varices in alcoholic cirrhosis: Code(s): K70.30 - Alcoholic cirrhosis of liver without ascites; I85.10 - Secondary esophageal varices without bleeding Status: Acute Assessment and Plan: No objective sign of active bleeding IV Protonix Plan DVT prophylaxis -S CD Stress ulcer prophylaxis -protonix Nutrition -NPO Code Status - Full Code Subjective Date/time seen: 05/22/25 12:53 Interval history: Rapid response was called to dialysis unit. Patient was unresponsive for sternal rub or tactile stimuli. Transferred to ICU Review of Systems Review of Systems: ROS unobtainable: Yes unobtainable due to endotracheal tube, unobtainable due to medical condition and unobtainable due to mental status Exam Narrative: General: Pt is drowsy unresponsive and in respiratory distress, diaphoretic Lungs/Chest: Trachea central bilateral crackles, tachypnea, use of accessory muscles Cardiac: RRR. Normal S1 S2. No murmurs Circulation: Pedal pulses are intact and symmetrical. Feet are warm Abdomen: Decreased bowel sounds.. Soft. NT. ND. Extremities: No pedal edema : Patient has a diaper on Neurologic: Unresponsive, PERRL Const: General: cooperative, no acute distress, well developed, awake, Physically active and average body habitus Nutritional Appearance: average body habitus Orientation/consciousness: oriented to person Other: The patient is answering questions inappropriately. The patient appears to be jaundice. HENMT: Head: normal to inspection, No palpable skull fracture present, normocephalic, atraumatic and abrasion Ears: hearing grossly normal bilaterally Eyes: General: appearance normal, both eyes and all related structures Alignment and Position: alignment normal Periorbital: periorbital findings normal Eyelids: eyelids normal Neck: Neck: normal visual inspection and full ROM Chest: Chest palpation & inspection: normal inspection of the chest Resp: Effort & Inspection: normal respiratory effort Auscultation: rhonchi lower bilaterally Cardio: Palpation: normal PMI Rate: regular rate Rhythm: regular rhythm Heart sounds: S1 normal heart sound present and S2 normal heart sound present Peripheral pulses: Peripheral pulses 2+ throughout GI: Inspection: normal to inspection : General: Yes no CVA tenderness Back/Spine/Pelvis: Back: no CVA tenderness Skin: General skin exam: normal color Lesions: no lesions Rashes: no rashes Trauma: no lacerations or abrasions Neuro: General: oriented to person Motor exam (neuro): 5/5 motor strength present throughout Extrem: General: normal to inspection Right upper extremity: normal to inspection and shoulder/upper arm Left upper extremity: normal to inspection and shoulder/upper arm Right lower extremity: normal to inspection Left lower extremity: normal to inspection Other: AV fistula left forearm has a positive bruit and thrill. Psych: Appearance: grossly normal Mental Status: mental status grossly normal Objective Data Vital Signs Vital Signs: Vital Signs - 24 hr 05/21/25 14:38 05/21/25 14:51 05/21/25 14:54 Temperature 97.8 F Pulse Rate 72 67 Respiratory Rate 12 Blood Pressure 192/85 H Pulse Oximetry 100 100 Oxygen Delivery Room Air Room Air Oxygen Flow Rate Fraction of Inspired Oxygen 05/21/25 14:54 05/21/25 15:30 05/21/25 15:47 Temperature 97.8 F Pulse Rate 67 57 L 54 L Respiratory Rate 13 12 10 L Blood Pressure 192/85 H Pulse Oximetry 100 100 100 Oxygen Delivery Oxygen Flow Rate Fraction of Inspired Oxygen 05/21/25 16:00 05/21/25 17:46 05/21/25 18:01 Temperature Pulse Rate 54 L 75 63 Respiratory Rate 10 L 13 12 Blood Pressure 196/87 H 192/75 H 189/74 H Pulse Oximetry 100 99 99 Oxygen Delivery Oxygen Flow Rate Fraction of Inspired Oxygen 05/21/25 18:16 05/21/25 18:46 05/21/25 19:36 Temperature Pulse Rate 71 53 L 56 L Respiratory Rate 12 12 12 Blood Pressure 197/74 H 202/77 H 194/71 H Pulse Oximetry 99 99 99 Oxygen Delivery Oxygen Flow Rate Fraction of Inspired Oxygen 05/21/25 20:46 05/21/25 21:50 05/21/25 22:00 Temperature Pulse Rate 62 58 L 55 L Respiratory Rate 12 15 12 Blood Pressure 180/74 H 157/53 H Pulse Oximetry 100 100 100 Oxygen Delivery Oxygen Flow Rate Fraction of Inspired Oxygen 05/21/25 23:08 05/22/25 00:00 05/22/25 00:00 Temperature 97.5 F L Pulse Rate 54 L 64 Respiratory Rate 15 16 Blood Pressure 157/53 H 187/60 H Pulse Oximetry 100 100 Oxygen Delivery Room Air Oxygen Flow Rate Fraction of Inspired Oxygen 05/22/25 00:00 05/22/25 02:00 05/22/25 04:00 Temperature Pulse Rate 64 55 L Respiratory Rate Blood Pressure Pulse Oximetry Oxygen Delivery Room Air Oxygen Flow Rate Fraction of Inspired Oxygen 05/22/25 04:00 05/22/25 04:00 05/22/25 04:18 Temperature 97.5 F L Pulse Rate 75 72 79 Respiratory Rate 16 Blood Pressure 193/68 H Pulse Oximetry 100 Oxygen Delivery Oxygen Flow Rate Fraction of Inspired Oxygen 05/22/25 04:20 05/22/25 06:00 05/22/25 07:35 Temperature Pulse Rate 94 Respiratory Rate Blood Pressure 194/68 H Pulse Oximetry Oxygen Delivery Room Air Oxygen Flow Rate Fraction of Inspired Oxygen 05/22/25 08:00 05/22/25 08:00 05/22/25 08:05 Temperature 98.0 F 98.4 F Pulse Rate 54 L 65 53 L Respiratory Rate 19 18 Blood Pressure 188/62 H 200/84 H Pulse Oximetry 99 97 Oxygen Delivery Oxygen Flow Rate Fraction of Inspired Oxygen 05/22/25 08:11 05/22/25 08:30 05/22/25 08:45 Temperature Pulse Rate 53 L 55 L 52 L Respiratory Rate Blood Pressure 204/82 H 201/78 H 199/76 H Pulse Oximetry Oxygen Delivery Oxygen Flow Rate Fraction of Inspired Oxygen 05/22/25 09:00 05/22/25 09:15 05/22/25 09:30 Temperature Pulse Rate 52 L 51 L 61 Respiratory Rate Blood Pressure 198/76 H 198/71 H 191/80 H Pulse Oximetry Oxygen Delivery Oxygen Flow Rate Fraction of Inspired Oxygen 05/22/25 09:45 05/22/25 10:00 05/22/25 10:00 Temperature Pulse Rate 58 L 55 L 55 L Respiratory Rate Blood Pressure 201/77 H 194/74 H Pulse Oximetry Oxygen Delivery Oxygen Flow Rate Fraction of Inspired Oxygen 05/22/25 10:15 05/22/25 10:30 05/22/25 10:45 Temperature Pulse Rate 56 L 54 L 57 L Respiratory Rate Blood Pressure 187/73 H 195/77 H 181/77 H Pulse Oximetry Oxygen Delivery Oxygen Flow Rate Fraction of Inspired Oxygen 05/22/25 11:00 05/22/25 11:15 05/22/25 11:30 Temperature Pulse Rate 60 63 67 Respiratory Rate Blood Pressure 189/76 H 183/76 H 210/87 H Pulse Oximetry Oxygen Delivery Oxygen Flow Rate Fraction of Inspired Oxygen 05/22/25 11:45 05/22/25 12:00 05/22/25 12:32 Temperature 97.5 F L Pulse Rate 69 71 69 Respiratory Rate 12 Blood Pressure 212/120 H 207/82 H 204/84 H Pulse Oximetry 94 Oxygen Delivery Oxygen Flow Rate Fraction of Inspired Oxygen 05/22/25 12:36 05/22/25 12:38 05/22/25 12:42 Temperature Pulse Rate 77 69 Respiratory Rate 20 Blood Pressure Pulse Oximetry 100 Oxygen Delivery Mechanical Ventilation Oxygen Flow Rate Fraction of Inspired Oxygen 100 80 05/22/25 12:46 Temperature Pulse Rate 68 Respiratory Rate 10 L Blood Pressure 207/80 H Pulse Oximetry 95 Oxygen Delivery Non-Rebreather Mask Oxygen Flow Rate 15 Fraction of Inspired Oxygen Intake/Output Intake/Output: Intake & Output 05/19/25 05/20/25 05/21/25 05/22/25 23:59 23:59 23:59 23:59 Intake Total 50 200 Output Total 0 1885 Balance 50 -1685 Meds/Results Medications: Active Medications Generic Name Dose Route Start Last Admin Trade Name Freq PRN Reason Stop Dose Admin Dextrose 12.5 gm 05/21/25 17:25 Dextrose 50% 25 Gm/50 Ml Syringe IV PUSH PRN PRN Hypoglycemia Protocol Dextrose 12.5 gm 05/22/25 12:40 Dextrose 50% 25 Gm/50 Ml Syringe IV PUSH PRN PRN Hypoglycemia Protocol Epoetin Nasir-epbx 4,000 units 05/22/25 18:20 05/22/25 09:20 Epoetin Nasir-Epbx 4,000 Units/Ml Vial IV PUSH 05/22/25 18:21 4,000 units ONCE ONE Administration Folic Acid 1 mg 05/22/25 09:00 Folic Acid 1 Mg/0.2 Ml Inj IV PUSH QAM DARWIN Glucagon 1 mg 05/21/25 17:25 Glucagon For Inj 1 Mg Vial IM PRN PRN Hypoglycemia Protocol Glucagon 1 mg 05/22/25 12:40 Glucagon For Inj 1 Mg Vial IM PRN PRN Hypoglycemia Protocol Glucose 15 gm 05/21/25 17:25 Glucose Oral Gel 15 Gm Of Glucse In 37.5 Gm Tube PO PRN PRN Hypoglycemia Protocol Glucose 15 gm 05/22/25 12:40 Glucose Oral Gel 15 Gm Of Glucse In 37.5 Gm Tube PO PRN PRN Hypoglycemia Protocol Hydralazine HCl 10 mg 05/22/25 00:47 05/22/25 04:18 Hydralazine Hcl 20 Mg/Ml Vial IV PUSH 10 mg Q8H PRN Administration Blood Pressure - High Dextrose 1,000 mls @ 100 mls/hr 05/21/25 17:25 Dextrose 5% 1,000 Ml IVPB PRN PRN Hypoglycemia Protocol Levetiracetam 750 mg/ Dextrose 107.5 mls @ 430 mls/hr 05/22/25 09:00 IVPB Q12HR DARWIN Metronidazole 500 mg in 100 mls @ 100 mls/hr 05/22/25 02:00 05/22/25 04:03 Flagyl 500 Mg/Iso Soln 100 Ml IVPB Infused Q8HR DARWIN Infusion Ceftriaxone Sodium 2 gm/ 100 mls @ 200 mls/hr 05/22/25 21:00 Sodium Chloride IVPB Q24H [facility]WIN Albumin Human 50 mls @ 999 mls/hr 05/22/25 06:20 Albutein IVPB 06/21/25 06:19 Q10M PRN HYPOTENSION Propofol 100 mls @ 2.19 mls/hr 05/22/25 12:25 05/22/25 12:36 Diprivan IV CONT 25 mcg/kg/min .[id number] DARWIN 10.95 mls/hr Protocol Administration 5 MCG/KG/MIN Dextrose 1,000 mls @ 100 mls/hr 05/22/25 12:40 Dextrose 5% 1,000 Ml IVPB PRN PRN Hypoglycemia Protocol Insulin Aspart 2 - 5 units 05/22/25 18:00 Insulin Aspart (*Bkc) 100 Units/Ml SUB-Q Q6HR DARWIN Protocol Lactulose 40 gm 05/22/25 13:00 Lactulose 20 Gm/30 Ml Udc FEED TUBE TID DARWIN Lidocaine/Prilocaine 1 each 05/22/25 06:26 Lidocaine/Prilocaine Cream 2.5-2.5% Tube TOPICAL WITH DIALYSIS PRN for dialysis Protocol Multi-Ingred Cream/Lotion/Oil/Oint 1 applic 05/22/25 21:00 Mineral Oil/White Petrolatum Ointment EACH EYE Q12HR [facility] Pantoprazole Sodium 40 mg 05/22/25 09:00 Pantoprazole Sodium Iv 40 Mg Vial IV PUSH Q12HR [facility]WIN Rifaximin 550 mg 05/22/25 21:00 Rifaximin 550 Mg Tablet FEED TUBE Q12HR [facility] Thiamine HCl 100 mg 05/22/25 09:00 Thiamine Hcl 200 Mg/2 Ml Vial IV PUSH QAM [facility] Radiology Results: ITS Impressions Head CT 05/21/25 15:13 IMPRESSION: 1. Stable exam compared to previous studies. 2. No gross intracranial mass effect or hemorrhage. Chest X-Ray 05/21/25 18:11 IMPRESSION: 1. Cardiomegaly, atherosclerotic aorta and mild vascular congestion of the lungs. Chest/Abdomen/Pelvis CT 05/21/25 19:21 IMPRESSION: 1. Severe cardiomegaly and severe multivessel coronary artery calcifications. Calcific changes of aortic valve cusps indicating some degree of aortic stenosis. Please correlate with echocardiographic findings. 2. Small bilateral pleural effusion. 3. Limited CT without IV contrast especially for solid viscera, neoplasms and vascular structures. 4. Contracted nodular liver and splenomegaly with prominent venous varices in the upper left abdomen. Moderate free fluid in the peritoneal cavity. Findings are suggestive of significant chronic liver disease with portal hypertension. Labs Labs: Laboratory Results - last 24 hr 05/21/25 05/21/25 05/21/25 16:10 17:57 19:38 WBC 3.9 L RBC 2.84 L Hgb 9.3 L Hct 28.3 L MCV 99.6 MCH 32.7 MCHC 32.9 RDW 15.8 H Plt Count 37 L D MPV 11.0 H Immature Gran % (Auto) 0.5 Neut % (Auto) 66.8 Lymph % (Auto) 23.3 [place] % (Auto) 6.6 Eos % (Auto) 2.3 Baso % (Auto) 0.5 Lymph # (Auto) 0.91 [place] # (Auto) 0.3 Eos # (Auto) 0.1 Baso # (Auto) 0.0 Abs Immat Gran (auto) 0.02 Absolute Neuts (auto) 2.6 Absolute Nucleated RBC 0.000 Band Neutrophils % Not Reportable Nucleated RBC % 0.0 Platelet Estimate Decreased % Immature Plt Fraction 2.0 Anisocytosis 1+ Schistocytes None seen PT 19.2 H INR 1.6 APTT 36.4 Puncture Site Right radial ABG pH 7.439 ABG pCO2 29.8 L ABG pO2 92.5 ABG PO2/FiO2 Ratio 4.40 ABG HCO3 19.7 L ABG O2 Saturation 97.4 ABG O2 Content 13.7 L ABG Base Excess -3.6 A-a Gradient 21.5 Oxyhemoglobin 93.9 Carboxyhemoglobin Methemoglobin Reduced Hemoglobin Total Hemoglobin 10.3 L O2 Delivery Device Not Reportable O2 Liters/Min Not Reportable FiO2 21 Sodium 136 L Potassium 5.8 H Chloride 99 Carbon Dioxide 20 L Anion Gap 17 H BUN 107 H* D Creatinine 12.08 H Estim Creat Clear Calc 6 Estimated GFR 4 L Glucose 102 POC Capillary Glucose 156 H Calcium 7.6 L Phosphorus 5.3 H Magnesium 3.0 H Total Bilirubin 1.7 H Direct Bilirubin AST 18 ALT 14 Alkaline Phosphatase 124 Ammonia 167 H Total Protein 6.6 Albumin 3.7 Nasal MRSA (PCR) 05/22/25 05/22/25 05/22/25 00:54 03:37 04:14 WBC 5.0 RBC 3.05 L Hgb 10.1 L Hct 30.7 L MCV 100.7 H MCH 33.1 MCHC 32.9 RDW 15.7 H Plt Count 37 L MPV 10.4 Immature Gran % (Auto) Neut % (Auto) Lymph % (Auto) [place] % (Auto) Eos % (Auto) Baso % (Auto) Lymph # (Auto) [place] # (Auto) Eos # (Auto) Baso # (Auto) Abs Immat Gran (auto) Absolute Neuts (auto) Absolute Nucleated RBC Band Neutrophils % Nucleated RBC % Platelet Estimate % Immature Plt Fraction 2.7 Anisocytosis Schistocytes PT INR APTT Puncture Site ABG pH ABG pCO2 ABG pO2 ABG PO2/FiO2 Ratio ABG HCO3 ABG O2 Saturation ABG O2 Content ABG Base Excess A-a Gradient Oxyhemoglobin Carboxyhemoglobin Methemoglobin Reduced Hemoglobin Total Hemoglobin O2 Delivery Device O2 Liters/Min FiO2 Sodium 139 139 Potassium 4.8 5.1 H Chloride 101 101 Carbon Dioxide 19 L 19 L Anion Gap 19 H 19 H BUN 108 H* 113 H* Creatinine 12.96 H 12.53 H Estim Creat Clear Calc 6 6 Estimated GFR 4 L 4 L Glucose 93 88 POC Capillary Glucose Calcium 8.0 L 8.1 L Phosphorus Magnesium Total Bilirubin Direct Bilirubin AST ALT Alkaline Phosphatase Ammonia 102 H 95 H Total Protein Albumin Nasal MRSA (PCR) Not detected 05/22/25 05/22/25 05/22/25 11:01 12:02 12:09 WBC RBC Hgb Hct MCV MCH MCHC RDW Plt Count MPV Immature Gran % (Auto) Neut % (Auto) Lymph % (Auto) [place] % (Auto) Eos % (Auto) Baso % (Auto) Lymph # (Auto) [place] # (Auto) Eos # (Auto) Baso # (Auto) Abs Immat Gran (auto) Absolute Neuts (auto) Absolute Nucleated RBC Band Neutrophils % Nucleated RBC % Platelet Estimate % Immature Plt Fraction Anisocytosis Schistocytes PT 17.9 H INR 1.5 APTT Puncture Site Right radial ABG pH 7.415 ABG pCO2 43.2 ABG pO2 144.2 H ABG PO2/FiO2 Ratio 1.44 ABG HCO3 27.1 H ABG O2 Saturation 98.9 ABG O2 Content 18.3 ABG Base Excess 2.2 A-a Gradient 525.6 Oxyhemoglobin 97.5 Carboxyhemoglobin 1.1 Methemoglobin 0.1 Reduced Hemoglobin 1.3 Total Hemoglobin 13.2 O2 Delivery Device Non-rebreather mask O2 Liters/Min 15.0 FiO2 100 Sodium Potassium Chloride Carbon Dioxide Anion Gap BUN Creatinine Estim Creat Clear Calc Estimated GFR Glucose POC Capillary Glucose 113 H Calcium Phosphorus Magnesium Total Bilirubin 2.3 H Direct Bilirubin 0.0 AST 20 ALT 12 Alkaline Phosphatase 157 H Ammonia Total Protein 7.5 Albumin 4.0 Nasal MRSA (PCR) Quality VTE Prophylaxis VTE prophylaxis: mechanical ordered Hospitalist MIPS Advance Care Plan I have confirmed that the patient's Advanced Care Plan is present, code status is documented, or surrogate decision maker is listed in patient medical record.: Yes Medication Reconciliation I have utilized all available resources to obtain, update and review the patients current medications (includes all prescriptions, OTC, herbals, cannabis, and nutritional supplements).: Yes
[2025-05-22 13:00] LABS: Triglycerides 154 mg/dL (<150)
[2025-05-22 13:13] LABS: Alveolar/Arterial O2 Gradient 187.4 mmHg; Carboxyhemoglobin 0.7 % THb (0-2.0); Fractional Inspired Oxygen 80 %; HCO3 ABG 23.6 mEq/l (22.0-26.0); Methemoglobin ABG 0.2 %THb (0-1.5); Oxygen Content ABG 17.4 %vol (16.0-22.0); Oxygen Saturation ABG 99.8 % (95.0-100.0); PCO2 ABG 30.5 mmHg (35.0-45.0); PO2 ABG 351.0 mmHg (80.0-100.0); PO2 FiO2 Ratio Arterial Blood 4.39 %; Reduced Hemoglobin 0.5 %THb (0-5.0)
[2025-05-22 13:20] LABS: Modified Allen's Test Pass; Site Drawn RIGHT RADIAL
[2025-05-22 13:21] LABS: Arterial Blood Gas Ventilator rate 20 /MIN
[2025-05-22 13:22] LABS: Arterial Blood Gas Tidal Volume 450 ml
[2025-05-22] MEDS: THIAMINE HCL 200 MG/2 ML VIAL 100 MG IV PUSH (14:29)
[2025-05-22] MEDS: FOLIC ACID 1 MG/0.2 ML INJ IV PUSH (14:30)
[2025-05-22] MEDS: PANTOPRAZOLE SODIUM IV 40 MG VIAL IV PUSH ×2 (14:30→20:25)
[2025-05-22] MEDS: LACTULOSE 20 GM/30 ML UDC 40 GM FEED TUBE (17:17)
[2025-05-22] MEDS: MINERAL OIL/WHITE PETROLATUM OINTMENT 1 APPLIC EACH EYE (20:26)
[2025-05-22] MEDS: cefTRIAXone 2 GM in SODIUM CHLORIDE 0.9% IV 100 ML 200 ML IVPB (20:27)
[2025-05-23] VITALS (50 sets, daily range): BP systolic 99–151; BP diastolic 50–72; PULSE 57–77; RESP 12–16; TEMP 36.1–37.1; O2SAT 98–100
[2025-05-23 04:52] LABS: Hematocrit 28.0 % (42.0-52.0); Hemoglobin 9.2 g/dL (14.0-18.0); Immature Platelet Fraction Pct 3.0 % (0.9-11.2); Mean Corpuscular HGB Conc 32.9 g/dl (32-36); Mean Corpuscular Hemoglobin 33.1 pg (26-34); Mean Corpuscular Volume 100.7 fl (80-100); Red Blood Count 2.78 M/mm3 (4.6-6.20); White Blood Count 3.9 K/mm3 (4.5-10.0)
[2025-05-23 04:56] LABS: Platelet Count Result 23 k/mm3 (150-375)
[2025-05-23 04:59] LABS: Ammonia 27 umol/L (9-30)
[2025-05-23 05:13] LABS: Alanine Aminotransferase 14 U/L (6-50); Albumin Level 3.2 g/dL (3.5-5.1); Alkaline Phosphatase 105 U/L (38-126); Anion Gap 12 mmol/L (4-12); Aspartate Amino Transferase 18 U/L (17-59); Bilirubin,Total 1.5 mg/dL (0.2-1.3); Blood Urea Nitrogen 49 mg/dL (9-20); Calcium 7.9 mg/dL (8.4-10.2); Carbon Dioxide 26 mmol/L (22-30); Chloride 99 mmol/L (98-107); Estimated CRCL calculation 10 ml/min; Estimated Glomerular Filt Rate 8; Glucose 98 mg/dL (65-110); Magnesium 2.2 mg/dL (1.6-2.3); Potassium 3.9 mmol/L (3.4-5.0); Sodium 137 mmol/L (137-145); Total Protein 6.1 g/dL (6.3-8.2)
[2025-05-23 05:29] LABS: Alveolar/Arterial O2 Gradient 84.3 mmHg; Carboxyhemoglobin 0.4 % THb (0-2.0); Fractional Inspired Oxygen 30 %; HCO3 ABG 25.2 mEq/l (22.0-26.0); Methemoglobin ABG 0.1 %THb (0-1.5); Oxygen Content ABG 13.2 %vol (16.0-22.0); Oxygen Saturation ABG 98.2 % (95.0-100.0); PCO2 ABG 28.6 mmHg (35.0-45.0); PO2 ABG 96.0 mmHg (80.0-100.0); PO2 FiO2 Ratio Arterial Blood 3.20 %; Reduced Hemoglobin 2.8 %THb (0-5.0)
[2025-05-23 05:30] LABS: Modified Allen's Test Pass; Site Drawn RIGHT RADIAL
[2025-05-23 05:31] LABS: Arterial Blood Gas Tidal Volume 400 ml; Arterial Blood Gas Ventilator rate 16 /MIN
[2025-05-23] MEDS: metroNIDAZOLE 500 MG/ISO 100ML 500 MG/100 ML BAG 100 MG IVPB ×3 (05:33→21:07)
[2025-05-23] MEDS: PROPOFOL IV EMULSION 100 ML 6.57 MG IV CONT ×2 (07:50→21:58)
--- NOTE | 2025-05-23 07:55 | WPDINTPN ---
Progress Note: A&P Assessment and Plan (1) Acute respiratory failure: Code(s): J96.00 - Acute respiratory failure, unspecified whether with hypoxia or hypercapnia Status: Resolved Assessment and Plan: Acute respiratory failure secondary to hepatic encephalopathy and pulmonary edema which is likely secondary to missed hemodialysis session and congestive heart failure Patient emergently transferred to ICU from dialysis center. He was unresponsive, hypoxic in respiratory distress Patient emergently intubated in the ICU and now placed on invasive mechanical ventilation. Large amount of frothy white secretions seen in the oropharynx and through the ET tube at the time of intubation Patient was dialyzed once Management of hepatic encephalopathy as below CT chest -New patchy consolidation and groundglass opacities in the dependent bilateral lower lobes most consistent with aspiration and/or pneumonia. 05/23 continue mechanical ventilation. Decrease tidal volume to 350 and rate to 12 Patient is scheduled for another hemodialysis session this morning. He needs additional fluid removed He is on antibiotics Rocephin and Flagyl which should cover for aspiration pneumonia although this appears more of a case of pulmonary edema Recent echocardiogram done last month reviewed Summary 1. Complete two-dimensional, color flow and Doppler transthoracic echocardiogram is performed. 2. Left ventricular chamber dimension is normal. 3. Left ventricular systolic function is normal, estimated at 60-65. 4. There is mild concentric increased left ventricular wall thickness. 5. The left ventricular diastolic function is abnormal. 6. E/e' 18 is elevated. 7. Left atrial chamber dimension is moderately enlarged. 8. Right atrial chamber dimension is mildly enlarged. 9. There is moderate aortic valve sclerosis. 10. There is mild aortic valve stenosis with a peak velocity of 313 cm/s, mean gradient of 25 mmHg, and aortic valve area of 1.7 cm2. 11. The mitral valve has a moderately calcified annulus. 12. There is trace mitral valve regurgitation. 13. There is trace tricuspid valve regurgitation. 14. No pulmonary hypertension, estimated pulmonary arterial systolic pressure is 33 mmHg. 15. The aortic root size at the sinus of Valsalva is borderline dilated at 4.1 cm. 16. There is trivial pericardial effusion. (2) Pulmonary edema: Code(s): J81.1 - Chronic pulmonary edema Status: Acute Assessment and Plan: See above (3) Hypertension: Code(s): I10 - Essential (primary) hypertension Status: Chronic Assessment and Plan: Patient now intubated and sedated. I will hold antihypertensive medications. (4) Hyperammonemia: Code(s): E72.20 - Disorder of urea cycle metabolism, unspecified Status: Acute Assessment and Plan: Secondary to cirrhosis. 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 He also has esophageal varices. INR 1.5 Management of elevated ammonia as above Patient is currently on antibiotics for SBP prophylaxis and ultrasound-guided paracentesis has been ordered. The radiologist felt the fluid who was too small in amount. Plan to re-evaluate on Sunday. Patient may need platelet transfusion prior to the procedure Patient evaluated by GI (7) Esophageal varices in alcoholic cirrhosis: Code(s): K70.30 - Alcoholic cirrhosis of liver without ascites; I85.10 - Secondary esophageal varices without bleeding Status: Acute Assessment and Plan: No objective sign of active bleeding IV Protonix (8) Thrombocytopenia: Code(s): D69.6 - Thrombocytopenia, unspecified Status: Acute Assessment and Plan: Secondary to cirrhosis Monitor Transfuse if needed (9) ESRD needing dialysis: Code(s): N18.6 - End stage renal disease; Z99.2 - Dependence on renal dialysis Status: Chronic Assessment and Plan: Patient missed his last 2 dialysis session is currently on volume overload 05/22 Patient received his dialysis this morning which was cut short by 10 minutes Nephrology following Patient is getting another session of dialysis this morning (10) Seizure disorder: Code(s): G40.909 - Epilepsy, unspecified, not intractable, without status epilepticus Status: Acute Assessment and Plan: Continue Ocra Currently on propofol infusion Plan DVT prophylaxis -S CD due to thrombocytopenia Stress ulcer prophylaxis -protonix Nutrition -start tube feeding Code Status - Full Code Total Critical Care Time - 30 minutes Due to a high probability of clinically significant, life threatening deterioration, the patient required my highest level of preparedness to intervene emergently and I personally spent this critical care time directly and personally managing the patient. This critical care time included obtaining a history; examining the patient; pulse oximetry; ordering and review of studies; arranging urgent treatment with development of a management plan; evaluation of patient's response to treatment; frequent reassessment; and discussions with other providers. It was exclusive of separately billable procedures and treating other patients and teaching time. Please see Assessment and Plan section and the rest of the note for further information on patient assessment and treatment Subjective Date/time seen: 05/23/25 Overnight events reviewed. Afebrile Continues to be on mechanical ventilation 30% FiO2 Continues to be sedated with propofol Other Vitals acceptable Review of Systems Review of Systems: ROS unobtainable: Yes unobtainable due to endotracheal tube, unobtainable due to medical condition and unobtainable due to mental status Exam Narrative: General: Pt is drowsy unresponsive and in respiratory distress, diaphoretic Lungs/Chest: Trachea central bilateral crackles, tachypnea, use of accessory muscles Cardiac: RRR. Normal S1 S2. No murmurs Circulation: Pedal pulses are intact and symmetrical. Feet are warm Abdomen: Decreased bowel sounds.. Soft. NT. ND. Extremities: No pedal edema : Patient has a diaper on Neurologic: Unresponsive, PERRL Objective Data Vital Signs Vital Signs: Vital Signs - 24 hr 05/22/25 08:00 05/22/25 08:00 05/22/25 08:05 Temperature 36.7 C 36.9 C Pulse Rate 54 L 65 53 L Respiratory Rate 19 18 Blood Pressure 188/62 H 200/84 H Pulse Oximetry 99 97 Oxygen Delivery Oxygen Flow Rate Fraction of Inspired Oxygen 05/22/25 08:11 05/22/25 08:30 05/22/25 08:45 Temperature Pulse Rate 53 L 55 L 52 L Respiratory Rate Blood Pressure 204/82 H 201/78 H 199/76 H Pulse Oximetry Oxygen Delivery Oxygen Flow Rate Fraction of Inspired Oxygen 05/22/25 09:00 05/22/25 09:15 05/22/25 09:30 Temperature Pulse Rate 52 L 51 L 61 Respiratory Rate Blood Pressure 198/76 H 198/71 H 191/80 H Pulse Oximetry Oxygen Delivery Oxygen Flow Rate Fraction of Inspired Oxygen 05/22/25 09:45 05/22/25 10:00 05/22/25 10:00 Temperature Pulse Rate 58 L 55 L 55 L Respiratory Rate Blood Pressure 201/77 H 194/74 H Pulse Oximetry Oxygen Delivery Oxygen Flow Rate Fraction of Inspired Oxygen 05/22/25 10:15 05/22/25 10:30 05/22/25 10:45 Temperature Pulse Rate 56 L 54 L 57 L Respiratory Rate Blood Pressure 187/73 H 195/77 H 181/77 H Pulse Oximetry Oxygen Delivery Oxygen Flow Rate Fraction of Inspired Oxygen 05/22/25 11:00 05/22/25 11:15 05/22/25 11:30 Temperature Pulse Rate 60 63 67 Respiratory Rate Blood Pressure 189/76 H 183/76 H 210/87 H Pulse Oximetry Oxygen Delivery Oxygen Flow Rate Fraction of Inspired Oxygen 05/22/25 11:45 05/22/25 12:00 05/22/25 12:32 Temperature 36.4 C L Pulse Rate 69 71 69 Respiratory Rate 12 Blood Pressure 212/120 H 207/82 H 204/84 H Pulse Oximetry 94 Oxygen Delivery Oxygen Flow Rate Fraction of Inspired Oxygen 05/22/25 12:36 05/22/25 12:38 05/22/25 12:42 Temperature Pulse Rate 77 69 Respiratory Rate 20 Blood Pressure Pulse Oximetry 100 Oxygen Delivery Mechanical Ventilation Oxygen Flow Rate Fraction of Inspired Oxygen 100 80 05/22/25 12:46 05/22/25 13:00 05/22/25 13:25 Temperature 36.4 C L Pulse Rate 68 58 L 66 Respiratory Rate 10 L 20 Blood Pressure 207/80 H 182/77 H Pulse Oximetry 95 100 100 Oxygen Delivery Non-Rebreather Mask Mechanical Ventilation Oxygen Flow Rate 15 Fraction of Inspired Oxygen 40 05/22/25 13:33 05/22/25 14:00 05/22/25 14:00 Temperature Pulse Rate 58 L 58 L Respiratory Rate 20 Blood Pressure Pulse Oximetry Oxygen Delivery Mechanical Ventilation Oxygen Flow Rate Fraction of Inspired Oxygen 05/22/25 14:00 05/22/25 15:00 05/22/25 16:00 Temperature Pulse Rate 66 55 L 61 Respiratory Rate 20 16 20 Blood Pressure 165/79 H 126/61 Pulse Oximetry 99 100 Oxygen Delivery Oxygen Flow Rate Fraction of Inspired Oxygen 05/22/25 16:00 05/22/25 16:00 05/22/25 16:00 Temperature Pulse Rate 58 L Respiratory Rate 16 Blood Pressure 148/64 H Pulse Oximetry 100 Oxygen Delivery Mechanical Ventilation Oxygen Flow Rate Fraction of Inspired Oxygen 40 05/22/25 16:00 05/22/25 16:32 05/22/25 17:00 Temperature Pulse Rate 57 L 56 L 79 Respiratory Rate 20 Blood Pressure 142/60 H Pulse Oximetry 100 92 Oxygen Delivery Mechanical Ventilation Oxygen Flow Rate Fraction of Inspired Oxygen 30 05/22/25 17:51 05/22/25 18:00 05/22/25 18:00 Temperature Pulse Rate 73 74 74 Respiratory Rate 20 20 Blood Pressure 116/60 Pulse Oximetry 100 Oxygen Delivery Oxygen Flow Rate Fraction of Inspired Oxygen 05/22/25 19:00 05/22/25 20:00 05/22/25 20:00 Temperature 36.8 C Pulse Rate 74 57 L Respiratory Rate 16 16 Blood Pressure 106/57 L 148/67 H Pulse Oximetry 100 100 Oxygen Delivery Oxygen Flow Rate Fraction of Inspired Oxygen 40 05/22/25 20:00 05/22/25 20:00 05/22/25 20:06 Temperature Pulse Rate 57 L 57 L Respiratory Rate Blood Pressure Pulse Oximetry 100 100 Oxygen Delivery Mechanical Ventilation Oxygen Flow Rate Fraction of Inspired Oxygen 40 30 05/22/25 20:10 05/22/25 20:21 05/22/25 20:24 Temperature Pulse Rate 65 55 L 55 L Respiratory Rate 16 16 16 Blood Pressure Pulse Oximetry Oxygen Delivery Oxygen Flow Rate Fraction of Inspired Oxygen 05/22/25 20:24 05/22/25 21:00 05/22/25 21:05 Temperature Pulse Rate 55 L 56 L 55 L Respiratory Rate 16 16 16 Blood Pressure 94/53 L Pulse Oximetry 100 Oxygen Delivery Oxygen Flow Rate Fraction of Inspired Oxygen 05/22/25 22:00 05/22/25 22:00 05/22/25 22:00 Temperature 36.2 C L Pulse Rate 56 L 56 L 56 L Respiratory Rate 16 16 Blood Pressure 96/54 L Pulse Oximetry 100 Oxygen Delivery Oxygen Flow Rate Fraction of Inspired Oxygen 05/22/25 23:00 05/22/25 23:01 05/23/25 00:00 Temperature Pulse Rate 57 L 57 L 57 L Respiratory Rate 16 16 Blood Pressure 114/57 L Pulse Oximetry 100 100 Oxygen Delivery Mechanical Ventilation Oxygen Flow Rate Fraction of Inspired Oxygen 30 05/23/25 00:00 05/23/25 00:00 05/23/25 00:00 Temperature Pulse Rate 57 L 57 L Respiratory Rate 16 Blood Pressure Pulse Oximetry 100 Oxygen Delivery Mechanical Ventilation Oxygen Flow Rate Fraction of Inspired Oxygen 40 30 05/23/25 00:00 05/23/25 01:00 05/23/25 02:00 Temperature 36.7 C Pulse Rate 57 L 60 64 Respiratory Rate 16 16 16 Blood Pressure 99/50 L 142/63 H Pulse Oximetry 100 100 Oxygen Delivery Oxygen Flow Rate Fraction of Inspired Oxygen 05/23/25 02:00 05/23/25 02:00 05/23/25 02:02 Temperature 36.7 C Pulse Rate 64 64 64 Respiratory Rate 16 Blood Pressure 145/61 H Pulse Oximetry 100 100 Oxygen Delivery Mechanical Ventilation Oxygen Flow Rate Fraction of Inspired Oxygen 30 05/23/25 03:00 05/23/25 04:00 05/23/25 04:00 Temperature Pulse Rate 57 L 57 L 57 L Respiratory Rate 16 16 Blood Pressure 116/51 L Pulse Oximetry 100 Oxygen Delivery Oxygen Flow Rate Fraction of Inspired Oxygen 05/23/25 04:00 05/23/25 04:00 05/23/25 04:00 Temperature 36.6 C Pulse Rate 57 L Respiratory Rate 16 Blood Pressure 135/56 L Pulse Oximetry 100 100 Oxygen Delivery Mechanical Ventilation Oxygen Flow Rate Fraction of Inspired Oxygen 30 30 05/23/25 05:00 05/23/25 05:06 05/23/25 06:00 Temperature Pulse Rate 60 57 L 59 L Respiratory Rate 16 Blood Pressure 111/54 L Pulse Oximetry 99 100 Oxygen Delivery Mechanical Ventilation Oxygen Flow Rate Fraction of Inspired Oxygen 30 05/23/25 06:00 05/23/25 06:00 05/23/25 07:00 Temperature Pulse Rate 59 L 59 L 57 L Respiratory Rate 16 16 14 Blood Pressure 118/61 133/63 Pulse Oximetry 100 99 Oxygen Delivery Oxygen Flow Rate Fraction of Inspired Oxygen 05/23/25 07:50 05/23/25 07:50 Temperature Pulse Rate 60 60 Respiratory Rate 12 12 Blood Pressure Pulse Oximetry Oxygen Delivery Oxygen Flow Rate Fraction of Inspired Oxygen Intake/Output Intake/Output: Intake & Output 05/20/25 05/21/25 05/22/25 05/23/25 23:59 23:59 23:59 23:59 Intake Total 50 825.0 154.4 Output Total 0 1885 300 Balance 50 -1060.0 -145.6 Meds/Results Medications: Active Medications Generic Name Dose Route Start Last Admin Trade Name Freq PRN Reason Stop Dose Admin Dextrose 12.5 gm 05/21/25 17:25 Dextrose 50% 25 Gm/50 Ml Syringe IV PUSH PRN PRN Hypoglycemia Protocol Dextrose 12.5 gm 05/22/25 12:40 Dextrose 50% 25 Gm/50 Ml Syringe IV PUSH PRN PRN Hypoglycemia Protocol Epoetin Nasir-epbx 10,000 units 05/23/25 18:11 Epoetin Nasir-Epbx 10,000 Units/Ml Vial IV PUSH 05/23/25 18:12 ONCE ONE Folic Acid 1 mg 05/22/25 09:00 05/22/25 14:30 Folic Acid 1 Mg/0.2 Ml Inj IV PUSH 1 mg QAM DARIWN Administration Glucagon 1 mg 05/21/25 17:25 Glucagon For Inj 1 Mg Vial IM PRN PRN Hypoglycemia Protocol Glucagon 1 mg 05/22/25 12:40 Glucagon For Inj 1 Mg Vial IM PRN PRN Hypoglycemia Protocol Glucose 15 gm 05/21/25 17:25 Glucose Oral Gel 15 Gm Of Glucse In 37.5 Gm Tube PO PRN PRN Hypoglycemia Protocol Glucose 15 gm 05/22/25 12:40 Glucose Oral Gel 15 Gm Of Glucse In 37.5 Gm Tube PO PRN PRN Hypoglycemia Protocol Hydralazine HCl 10 mg 05/22/25 00:47 05/22/25 04:18 Hydralazine Hcl 20 Mg/Ml Vial IV PUSH 10 mg Q8H PRN Administration Blood Pressure - High Dextrose 1,000 mls @ 100 mls/hr 05/21/25 17:25 Dextrose 5% 1,000 Ml IVPB PRN PRN Hypoglycemia Protocol Levetiracetam 750 mg/ Dextrose 107.5 mls @ 430 mls/hr 05/22/25 09:00 05/22/25 23:38 IVPB Infused Q12HR DARWIN Infusion Metronidazole 500 mg in 100 mls @ 100 mls/hr 05/22/25 02:00 05/23/25 05:33 Flagyl 500 Mg/Iso Soln 100 Ml IVPB 100 mls/hr Q8HR DARWIN Administration Ceftriaxone Sodium 2 gm/ 100 mls @ 200 mls/hr 05/22/25 21:00 05/22/25 23:38 Sodium Chloride IVPB Infused Q24H DARWIN Infusion Albumin Human 50 mls @ 999 mls/hr 05/22/25 06:20 Albutein IVPB 06/21/25 06:19 Q10M PRN HYPOTENSION Propofol 100 mls @ 6.57 mls/hr 05/22/25 12:25 05/23/25 07:50 Diprivan IV CONT 15 mcg/kg/min .[id number] DARWIN 6.57 mls/hr Protocol Administration 15 MCG/KG/MIN Dextrose 1,000 mls @ 100 mls/hr 05/22/25 12:40 Dextrose 5% 1,000 Ml IVPB PRN PRN Hypoglycemia Protocol Insulin Aspart 2 - 5 units 05/22/25 18:00 05/23/25 05:28 Insulin Aspart (*Bkc) 100 Units/Ml SUB-Q Not Given Q6HR DARWIN Protocol Lactulose 40 gm 05/22/25 13:00 05/22/25 17:17 Lactulose 20 Gm/30 Ml Udc FEED TUBE 40 gm TID DARWIN Administration Lidocaine/Prilocaine 1 each 05/22/25 06:26 Lidocaine/Prilocaine Cream 2.5-2.5% Tube TOPICAL WITH DIALYSIS PRN for dialysis Protocol Multi-Ingred Cream/Lotion/Oil/Oint 1 applic 05/22/25 21:00 05/22/25 20:26 Mineral Oil/White Petrolatum Ointment EACH EYE 1 applic Q12HR DARWIN Administration Pantoprazole Sodium 40 mg 05/22/25 09:00 05/22/25 20:25 Pantoprazole Sodium Iv 40 Mg Vial IV PUSH 40 mg Q12HR DARWIN Administration Rifaximin 550 mg 05/22/25 21:00 05/22/25 20:27 Rifaximin 550 Mg Tablet FEED TUBE 550 mg Q12HR DARWIN Administration Thiamine HCl 100 mg 05/22/25 09:00 05/22/25 14:29 Thiamine Hcl 200 Mg/2 Ml Vial IV PUSH 100 mg QAM DARWIN Administration Radiology Results: ITS Impressions Abdomen X-Ray 05/22/25 13:09 IMPRESSION: Adequate placement of gastric catheter. Several loops of gas dilated possibly distended small bowel and distended appearance of the gastric bubble. Query if patient has presentation suggestive of ileus or obstruction. Head CT 05/22/25 14:16 IMPRESSION: 1. No acute intracranial findings. Chest/Abdomen/Pelvis CT 05/22/25 14:19 IMPRESSION: 1. New patchy consolidation and groundglass opacities in the dependent bilateral lower lobes most consistent with aspiration and/or pneumonia. 2. Small left and tiny right pleural effusions. 3. Cardiomegaly. 4. Nodular cirrhotic liver with splenomegaly and markedly enlarged splenorenal collaterals consistent with secondary portal venous hypertension. 5. Small amount of ascites scattered throughout the abdomen and pelvis likely related to liver disease. 6. Bilateral nonobstructing nephrolithiasis. Labs Labs: Laboratory Results - last 24 hr 05/22/25 05/22/25 05/22/25 11:01 12:02 12:09 WBC RBC Hgb Hct MCV MCH MCHC RDW Plt Count MPV % Immature Plt Fraction PT 17.9 H INR 1.5 Puncture Site Right radial ABG pH 7.415 ABG pCO2 43.2 ABG pO2 144.2 H ABG PO2/FiO2 Ratio 1.44 ABG HCO3 27.1 H ABG O2 Saturation 98.9 ABG O2 Content 18.3 ABG Base Excess 2.2 A-a Gradient 525.6 Oxyhemoglobin 97.5 Carboxyhemoglobin 1.1 Methemoglobin 0.1 Reduced Hemoglobin 1.3 Total Hemoglobin 13.2 O2 Delivery Device Non-rebreather mask O2 Liters/Min 15.0 Minute Volume Vent Rate Vent Mode FiO2 100 Tidal Volume PEEP Peak Inspir Pressure Pressure Support Sodium Potassium Chloride Carbon Dioxide Anion Gap BUN Creatinine Estim Creat Clear Calc Estimated GFR Glucose POC Capillary Glucose 113 H Calcium Phosphorus Magnesium Total Bilirubin 2.3 H Direct Bilirubin 0.0 AST 20 ALT 12 Alkaline Phosphatase 157 H Ammonia Total Protein 7.5 Albumin 4.0 Triglycerides 154 H Blood Type Antibody Screen 05/22/25 05/22/25 05/23/25 13:17 17:48 00:13 WBC RBC Hgb Hct MCV MCH MCHC RDW Plt Count MPV % Immature Plt Fraction PT INR Puncture Site Right radial ABG pH 7.506 H* ABG pCO2 30.5 L ABG pO2 351.0 H ABG PO2/FiO2 Ratio 4.39 ABG HCO3 23.6 ABG O2 Saturation 99.8 ABG O2 Content 17.4 ABG Base Excess 1.2 A-a Gradient 187.4 Oxyhemoglobin 98.6 Carboxyhemoglobin 0.7 Methemoglobin 0.2 Reduced Hemoglobin 0.5 Total Hemoglobin 11.9 L O2 Delivery Device Ventilator O2 Liters/Min Not Reportable Minute Volume Not Reportable Vent Rate 20 Vent Mode Cmv FiO2 80 Tidal Volume 450 PEEP 8 Peak Inspir Pressure Not Reportable Pressure Support Not Reportable Sodium Potassium Chloride Carbon Dioxide Anion Gap BUN Creatinine Estim Creat Clear Calc Estimated GFR Glucose POC Capillary Glucose 105 107 H Calcium Phosphorus Magnesium Total Bilirubin Direct Bilirubin AST ALT Alkaline Phosphatase Ammonia Total Protein Albumin Triglycerides Blood Type Antibody Screen 05/23/25 05/23/25 05/23/25 04:39 05:15 06:27 WBC 3.9 L RBC 2.78 L Hgb 9.2 L Hct 28.0 L MCV 100.7 H MCH 33.1 MCHC 32.9 RDW 15.8 H Plt Count 23 L* MPV 9.7 % Immature Plt Fraction 3.0 PT INR Puncture Site Right radial ABG pH 7.563 H* ABG pCO2 28.6 L ABG pO2 96.0 ABG PO2/FiO2 Ratio 3.20 ABG HCO3 25.2 ABG O2 Saturation 98.2 ABG O2 Content 13.2 L ABG Base Excess 3.4 A-a Gradient 84.3 Oxyhemoglobin 96.7 Carboxyhemoglobin 0.4 Methemoglobin 0.1 Reduced Hemoglobin 2.8 Total Hemoglobin 9.6 L O2 Delivery Device Ventilator O2 Liters/Min Not Reportable Minute Volume Not Reportable Vent Rate 16 Vent Mode Cmv FiO2 30 Tidal Volume 400 PEEP 8 Peak Inspir Pressure Not Reportable Pressure Support Not Reportable Sodium 137 Potassium 3.9 Chloride 99 Carbon Dioxide 26 Anion Gap 12 BUN 49 H D Creatinine 7.41 H Estim Creat Clear Calc 10 Estimated GFR 8 L Glucose 98 POC Capillary Glucose Calcium 7.9 L Phosphorus 5.3 H Magnesium 2.2 Total Bilirubin 1.5 H Direct Bilirubin AST 18 ALT 14 Alkaline Phosphatase 105 Ammonia 27 Total Protein 6.1 L Albumin 3.2 L Triglycerides Blood Type O Negative Antibody Screen Negative Quality VTE Prophylaxis VTE prophylaxis: mechanical ordered
[2025-05-23] MEDS: LACTULOSE 20 GM/30 ML UDC 40 GM FEED TUBE ×3 (08:01→17:14)
[2025-05-23] MEDS: PANTOPRAZOLE SODIUM IV 40 MG VIAL IV PUSH ×2 (08:01→20:24)
[2025-05-23] MEDS: THIAMINE HCL 200 MG/2 ML VIAL 100 MG IV PUSH (08:02)
[2025-05-23] MEDS: FOLIC ACID 1 MG/0.2 ML INJ IV PUSH (09:27)
[2025-05-23] MEDS: MINERAL OIL/WHITE PETROLATUM OINTMENT 1 APPLIC EACH EYE ×2 (10:00→20:25)
[2025-05-23] MEDS: EPOETIN ALFA-EPBX 10,000 UNITS/ML VIAL 10000 UNITS IV PUSH (10:27)
--- NOTE | 2025-05-23 12:39 | P.PNNP_ITS ---
Progress Note: A&P Assessment and Plan (1) End stage renal disease: Code(s): N18.6 - End stage renal disease Status: Chronic Assessment and Plan: * HD underway * will do another dialysis on Sunday * volume status looks okay. * Electrolytes and BUN are better today. (2) Altered mental status: Qualifiers: Altered mental status type: unspecified Qualified Code(s): R41.82 - Altered mental status, unspecified Code(s): R41.82 - Altered mental status, unspecified Status: Acute Assessment and Plan: * presumed due to hepatic encephalopathy: * elevated ammonia levels on admission * suspected medication non-compliance (with lactulose) * his high BUN may have contributed as well. * also, known history of seizure disorder as well , although no signs of seizures so far * CT of head negative * on lactulose enemas * transition to oral lactulose as mentation improves * rule out infection * Blood cultures are negative so far * follow mentation (3) Hyperkalemia: Code(s): E87.5 - Hyperkalemia Status: Acute Assessment and Plan: * due missed dialysis treatments * resolved (4) Cirrhosis: Code(s): K74.60 - Unspecified cirrhosis of liver Status: Acute Assessment and Plan: * known history * has been sober for the last 2 - 3 years * ammonia level was extremely high on admission * continue lactulose enemas * GI recommendations noted * empiric antibiotics for possible SBP * paracentesis planned (5) Hypertension: Code(s): I10 - Essential (primary) hypertension Status: Chronic Assessment and Plan: * systolic looks better. Ranging from 110s to 150s. * given mentation, oral BP medications may be difficult to administer * use PRN IV medications for now * resume oral medications as mentation improves... * follow trend of hemodynamics (6) Anemia: Code(s): D64.9 - Anemia, unspecified Status: Chronic Assessment and Plan: * due to ESRD with contributions from liver disease * Epogen with HD * Check a CBC tomorrow (7) Pancytopenia: Code(s): D61.818 - Other pancytopenia Status: Acute Assessment and Plan: * somewhat of a chronic issue * thought to be secondary to liver disease and increased reticuloendothelial activity * anemia further complicated by ESRD (8) Seizure disorder: Code(s): G40.909 - Epilepsy, unspecified, not intractable, without status epilepticus Status: Acute Assessment and Plan: * known history of seizure disorder * on IV Keppra (given NPO status) * no evidence of seizure activity at this time Subjective Date/time seen: 05/23/25 12:39 Interval history: Jj is on the ventilator in the ICU he opens his eyes when I call his name but he does not interact otherwise. he is seen on dialysis and tolerating it well. He was seen at 9:45 a.m. Review of Systems Cardiovascular: Cardiovascular: Reports no additional cardiovascular complaints Respiratory: Respiratory: Reports no additional respiratory complaints Gastrointestinal: Gastrointestinal: Reports no additional gastrointestinal complaints Genitourinary: Genitourinary: Reports no additional male genitourinary complaints Exam Narrative: WDWN in NAD On a ventilator in the ICU skin no rash head ncat lungs mildly coarse with upper airways noise cor reg no rub abd BS+ nontender and soft ext no edema. Objective Data Vital Signs Vital Signs: Vital Signs - 24 hr 05/22/25 12:42 05/22/25 12:46 05/22/25 13:00 Temperature 97.5 F L Pulse Rate 69 68 58 L Respiratory Rate 10 L 20 Blood Pressure 207/80 H 182/77 H Pulse Oximetry 100 95 100 Oxygen Delivery Mechanical Ventilation Non-Rebreather Mask Oxygen Flow Rate 15 Fraction of Inspired Oxygen 80 05/22/25 13:25 05/22/25 13:33 05/22/25 14:00 Temperature Pulse Rate 66 58 L Respiratory Rate 20 Blood Pressure Pulse Oximetry 100 Oxygen Delivery Mechanical Ventilation Mechanical Ventilation Oxygen Flow Rate Fraction of Inspired Oxygen 40 05/22/25 14:00 05/22/25 14:00 05/22/25 15:00 Temperature Pulse Rate 58 L 66 55 L Respiratory Rate 20 16 Blood Pressure 165/79 H 126/61 Pulse Oximetry 99 100 Oxygen Delivery Oxygen Flow Rate Fraction of Inspired Oxygen 05/22/25 16:00 05/22/25 16:00 05/22/25 16:00 Temperature Pulse Rate 61 Respiratory Rate 20 Blood Pressure Pulse Oximetry Oxygen Delivery Mechanical Ventilation Oxygen Flow Rate Fraction of Inspired Oxygen 40 05/22/25 16:00 05/22/25 16:00 05/22/25 16:32 Temperature Pulse Rate 58 L 57 L 56 L Respiratory Rate 16 Blood Pressure 148/64 H Pulse Oximetry 100 100 Oxygen Delivery Mechanical Ventilation Oxygen Flow Rate Fraction of Inspired Oxygen 30 05/22/25 17:00 05/22/25 17:51 05/22/25 18:00 Temperature Pulse Rate 79 73 74 Respiratory Rate 20 20 Blood Pressure 142/60 H 116/60 Pulse Oximetry 92 100 Oxygen Delivery Oxygen Flow Rate Fraction of Inspired Oxygen 05/22/25 18:00 05/22/25 19:00 05/22/25 20:00 Temperature Pulse Rate 74 74 Respiratory Rate 20 16 Blood Pressure 106/57 L Pulse Oximetry 100 Oxygen Delivery Oxygen Flow Rate Fraction of Inspired Oxygen 40 05/22/25 20:00 05/22/25 20:00 05/22/25 20:00 Temperature 98.2 F Pulse Rate 57 L 57 L Respiratory Rate 16 Blood Pressure 148/67 H Pulse Oximetry 100 100 Oxygen Delivery Oxygen Flow Rate Fraction of Inspired Oxygen 40 05/22/25 20:06 05/22/25 20:10 05/22/25 20:21 Temperature Pulse Rate 57 L 65 55 L Respiratory Rate 16 16 Blood Pressure Pulse Oximetry 100 Oxygen Delivery Mechanical Ventilation Oxygen Flow Rate Fraction of Inspired Oxygen 30 05/22/25 20:24 05/22/25 20:24 05/22/25 21:00 Temperature Pulse Rate 55 L 55 L 56 L Respiratory Rate 16 16 16 Blood Pressure 94/53 L Pulse Oximetry 100 Oxygen Delivery Oxygen Flow Rate Fraction of Inspired Oxygen 05/22/25 21:05 05/22/25 22:00 05/22/25 22:00 Temperature 97.2 F L Pulse Rate 55 L 56 L 56 L Respiratory Rate 16 16 16 Blood Pressure 96/54 L Pulse Oximetry 100 Oxygen Delivery Oxygen Flow Rate Fraction of Inspired Oxygen 05/22/25 22:00 05/22/25 23:00 05/22/25 23:01 Temperature Pulse Rate 56 L 57 L 57 L Respiratory Rate 16 Blood Pressure 114/57 L Pulse Oximetry 100 100 Oxygen Delivery Mechanical Ventilation Oxygen Flow Rate Fraction of Inspired Oxygen 30 05/23/25 00:00 05/23/25 00:00 05/23/25 00:00 Temperature Pulse Rate 57 L 57 L 57 L Respiratory Rate 16 16 Blood Pressure Pulse Oximetry 100 Oxygen Delivery Mechanical Ventilation Oxygen Flow Rate Fraction of Inspired Oxygen 40 05/23/25 00:00 05/23/25 00:00 05/23/25 01:00 Temperature 98.1 F Pulse Rate 57 L 60 Respiratory Rate 16 16 Blood Pressure 99/50 L 142/63 H Pulse Oximetry 100 100 Oxygen Delivery Oxygen Flow Rate Fraction of Inspired Oxygen 30 05/23/25 02:00 05/23/25 02:00 05/23/25 02:00 Temperature 98.0 F Pulse Rate 64 64 64 Respiratory Rate 16 16 Blood Pressure 145/61 H Pulse Oximetry 100 Oxygen Delivery Oxygen Flow Rate Fraction of Inspired Oxygen 05/23/25 02:02 05/23/25 03:00 05/23/25 04:00 Temperature Pulse Rate 64 57 L 57 L Respiratory Rate 16 16 Blood Pressure 116/51 L Pulse Oximetry 100 100 Oxygen Delivery Mechanical Ventilation Oxygen Flow Rate Fraction of Inspired Oxygen 30 05/23/25 04:00 05/23/25 04:00 05/23/25 04:00 Temperature 97.8 F Pulse Rate 57 L 57 L Respiratory Rate 16 Blood Pressure 135/56 L Pulse Oximetry 100 Oxygen Delivery Oxygen Flow Rate Fraction of Inspired Oxygen 30 05/23/25 04:00 05/23/25 05:00 05/23/25 05:06 Temperature Pulse Rate 60 57 L Respiratory Rate 16 Blood Pressure 111/54 L Pulse Oximetry 100 99 100 Oxygen Delivery Mechanical Ventilation Mechanical Ventilation Oxygen Flow Rate Fraction of Inspired Oxygen 30 30 05/23/25 06:00 05/23/25 06:00 05/23/25 06:00 Temperature Pulse Rate 59 L 59 L 59 L Respiratory Rate 16 16 Blood Pressure 118/61 Pulse Oximetry 100 Oxygen Delivery Oxygen Flow Rate Fraction of Inspired Oxygen 05/23/25 07:00 05/23/25 07:50 05/23/25 07:50 Temperature Pulse Rate 57 L 60 60 Respiratory Rate 14 12 12 Blood Pressure 133/63 Pulse Oximetry 99 Oxygen Delivery Oxygen Flow Rate Fraction of Inspired Oxygen 05/23/25 07:56 05/23/25 07:58 05/23/25 08:00 Temperature 97.5 F L 98.8 F Pulse Rate 68 62 64 Respiratory Rate 13 13 Blood Pressure 123/57 L 122/61 Pulse Oximetry 100 100 100 Oxygen Delivery Mechanical Ventilation Oxygen Flow Rate Fraction of Inspired Oxygen 30 05/23/25 08:00 05/23/25 08:00 05/23/25 08:00 Temperature Pulse Rate 74 Respiratory Rate Blood Pressure Pulse Oximetry 100 Oxygen Delivery Mechanical Ventilation Oxygen Flow Rate Fraction of Inspired Oxygen 30 30 05/23/25 08:00 05/23/25 08:30 05/23/25 08:45 Temperature Pulse Rate 61 58 L Respiratory Rate Blood Pressure 141/63 H 149/65 H Pulse Oximetry Oxygen Delivery Oxygen Flow Rate Fraction of Inspired Oxygen 30 05/23/25 09:00 05/23/25 09:00 05/23/25 09:15 Temperature Pulse Rate 58 L 58 L 57 L Respiratory Rate 12 Blood Pressure 149/65 H 151/65 H 151/65 H Pulse Oximetry 100 Oxygen Delivery Oxygen Flow Rate Fraction of Inspired Oxygen 05/23/25 09:30 05/23/25 09:45 05/23/25 09:50 Temperature Pulse Rate 60 63 61 Respiratory Rate 12 Blood Pressure 129/69 122/64 Pulse Oximetry Oxygen Delivery Oxygen Flow Rate Fraction of Inspired Oxygen 05/23/25 10:00 05/23/25 10:00 05/23/25 10:00 Temperature 97.7 F Pulse Rate 64 61 61 Respiratory Rate 12 Blood Pressure 138/72 144/63 H Pulse Oximetry 100 Oxygen Delivery Oxygen Flow Rate Fraction of Inspired Oxygen 05/23/25 10:15 05/23/25 10:30 05/23/25 10:45 Temperature Pulse Rate 60 59 L 65 Respiratory Rate Blood Pressure 145/69 H 144/63 H 110/63 Pulse Oximetry Oxygen Delivery Oxygen Flow Rate Fraction of Inspired Oxygen 05/23/25 11:00 05/23/25 11:00 05/23/25 11:15 Temperature Pulse Rate 65 63 63 Respiratory Rate 13 Blood Pressure 115/69 121/64 121/64 Pulse Oximetry 100 Oxygen Delivery Oxygen Flow Rate Fraction of Inspired Oxygen 05/23/25 11:16 05/23/25 11:30 05/23/25 11:45 Temperature Pulse Rate 71 64 66 Respiratory Rate Blood Pressure 126/67 120/66 Pulse Oximetry 100 Oxygen Delivery Mechanical Ventilation Oxygen Flow Rate Fraction of Inspired Oxygen 30 05/23/25 12:00 05/23/25 12:00 05/23/25 12:00 Temperature 97.8 F Pulse Rate 77 63 Respiratory Rate 15 Blood Pressure 119/70 136/69 Pulse Oximetry 100 Oxygen Delivery Oxygen Flow Rate Fraction of Inspired Oxygen 30 05/23/25 12:00 05/23/25 12:00 Temperature Pulse Rate 68 63 Respiratory Rate 15 Blood Pressure Pulse Oximetry Oxygen Delivery Oxygen Flow Rate Fraction of Inspired Oxygen Intake/Output Intake/Output: Intake & Output 05/20/25 05/21/25 05/22/25 05/23/25 23:59 23:59 23:59 23:59 Intake Total 50 825.0 289.2 Output Total 0 1885 300 Balance 50 -1060.0 -10.8 Meds/Results Medications: Active Medications Generic Name Dose Route Start Last Admin Trade Name Freq PRN Reason Stop Dose Admin Dextrose 12.5 gm 05/22/25 12:40 Dextrose 50% 25 Gm/50 Ml Syringe IV PUSH PRN PRN Hypoglycemia Protocol Epoetin Nasir-epbx 10,000 units 05/23/25 18:11 05/23/25 10:27 Epoetin Nasir-Epbx 10,000 Units/Ml Vial IV PUSH 05/23/25 18:12 10,000 units ONCE ONE Administration Folic Acid 1 mg 05/22/25 09:00 05/23/25 09:27 Folic Acid 1 Mg/0.2 Ml Inj IV PUSH 1 mg QAM DARWIN Administration Glucagon 1 mg 05/22/25 12:40 Glucagon For Inj 1 Mg Vial IM PRN PRN Hypoglycemia Protocol Glucose 15 gm 05/22/25 12:40 Glucose Oral Gel 15 Gm Of Glucse In 37.5 Gm Tube PO PRN PRN Hypoglycemia Protocol Hydralazine HCl 10 mg 05/22/25 00:47 05/22/25 04:18 Hydralazine Hcl 20 Mg/Ml Vial IV PUSH 10 mg Q8H PRN Administration Blood Pressure - High Levetiracetam 750 mg/ Dextrose 107.5 mls @ 430 mls/hr 05/22/25 09:00 05/23/25 09:42 IVPB Infused Q12HR DARWIN Infusion Metronidazole 500 mg in 100 mls @ 100 mls/hr 05/22/25 02:00 05/23/25 05:33 Flagyl 500 Mg/Iso Soln 100 Ml IVPB 100 mls/hr Q8HR DARWIN Administration Ceftriaxone Sodium 2 gm/ 100 mls @ 200 mls/hr 05/22/25 21:00 05/22/25 23:38 Sodium Chloride IVPB Infused Q24H DARWIN Infusion Albumin Human 50 mls @ 999 mls/hr 05/22/25 06:20 Albutein IVPB 06/21/25 06:19 Q10M PRN HYPOTENSION Propofol 100 mls @ 6.57 mls/hr 05/22/25 12:25 05/23/25 12:00 Diprivan IV CONT 15 mcg/kg/min .[id number] DARWIN 6.57 mls/hr Protocol Titration 15 MCG/KG/MIN Dextrose 1,000 mls @ 100 mls/hr 05/22/25 12:40 Dextrose 5% 1,000 Ml IVPB PRN PRN Hypoglycemia Protocol Insulin Aspart 2 - 5 units 05/22/25 18:00 05/23/25 05:28 Insulin Aspart (*Bkc) 100 Units/Ml SUB-Q Not Given Q6HR DARWIN Protocol Lactulose 40 gm 05/22/25 13:00 05/23/25 08:01 Lactulose 20 Gm/30 Ml Udc FEED TUBE 40 gm TID DARWIN Administration Lidocaine/Prilocaine 1 each 05/22/25 06:26 Lidocaine/Prilocaine Cream 2.5-2.5% Tube TOPICAL WITH DIALYSIS PRN for dialysis Protocol Multi-Ingred Cream/Lotion/Oil/Oint 1 applic 05/22/25 21:00 05/22/25 20:26 Mineral Oil/White Petrolatum Ointment EACH EYE 1 applic Q12HR DARWIN Administration Pantoprazole Sodium 40 mg 05/22/25 09:00 05/23/25 08:01 Pantoprazole Sodium Iv 40 Mg Vial IV PUSH 40 mg Q12HR DARWIN Administration Rifaximin 550 mg 05/22/25 21:00 05/23/25 08:02 Rifaximin 550 Mg Tablet FEED TUBE 550 mg Q12HR DARWIN Administration Thiamine HCl 100 mg 05/22/25 09:00 05/23/25 08:02 Thiamine Hcl 200 Mg/2 Ml Vial IV PUSH 100 mg QAM DARWIN Administration Radiology Results: ITS Impressions Abdomen X-Ray 05/22/25 13:09 IMPRESSION: Adequate placement of gastric catheter. Several loops of gas dilated possibly distended small bowel and distended appearance of the gastric bubble. Query if patient has presentation suggestive of ileus or obstruction. Head CT 05/22/25 14:16 IMPRESSION: 1. No acute intracranial findings. Chest/Abdomen/Pelvis CT 05/22/25 14:19 IMPRESSION: 1. New patchy consolidation and groundglass opacities in the dependent bilateral lower lobes most consistent with aspiration and/or pneumonia. 2. Small left and tiny right pleural effusions. 3. Cardiomegaly. 4. Nodular cirrhotic liver with splenomegaly and markedly enlarged splenorenal collaterals consistent with secondary portal venous hypertension. 5. Small amount of ascites scattered throughout the abdomen and pelvis likely related to liver disease. 6. Bilateral nonobstructing nephrolithiasis. Chest X-Ray 05/23/25 09:13 IMPRESSION: 1. Worsening bibasilar airspace disease. Labs Labs: Laboratory Results - last 24 hr 05/22/25 05/22/25 05/22/25 11:01 13:17 17:48 WBC RBC Hgb Hct MCV MCH MCHC RDW Plt Count MPV % Immature Plt Fraction Puncture Site Right radial ABG pH 7.506 H* ABG pCO2 30.5 L ABG pO2 351.0 H ABG PO2/FiO2 Ratio 4.39 ABG HCO3 23.6 ABG O2 Saturation 99.8 ABG O2 Content 17.4 ABG Base Excess 1.2 A-a Gradient 187.4 Oxyhemoglobin 98.6 Carboxyhemoglobin 0.7 Methemoglobin 0.2 Reduced Hemoglobin 0.5 Total Hemoglobin 11.9 L O2 Delivery Device Ventilator O2 Liters/Min Not Reportable Minute Volume Not Reportable Vent Rate 20 Vent Mode Cmv FiO2 80 Tidal Volume 450 PEEP 8 Peak Inspir Pressure Not Reportable Pressure Support Not Reportable Sodium Potassium Chloride Carbon Dioxide Anion Gap BUN Creatinine Estim Creat Clear Calc Estimated GFR Glucose POC Capillary Glucose 105 Calcium Phosphorus Magnesium Total Bilirubin AST ALT Alkaline Phosphatase Ammonia Total Protein Albumin Triglycerides 154 H Blood Type Antibody Screen 05/23/25 05/23/25 05/23/25 00:13 04:39 05:15 WBC 3.9 L RBC 2.78 L Hgb 9.2 L Hct 28.0 L MCV 100.7 H MCH 33.1 MCHC 32.9 RDW 15.8 H Plt Count 23 L* MPV 9.7 % Immature Plt Fraction 3.0 Puncture Site Right radial ABG pH 7.563 H* ABG pCO2 28.6 L ABG pO2 96.0 ABG PO2/FiO2 Ratio 3.20 ABG HCO3 25.2 ABG O2 Saturation 98.2 ABG O2 Content 13.2 L ABG Base Excess 3.4 A-a Gradient 84.3 Oxyhemoglobin 96.7 Carboxyhemoglobin 0.4 Methemoglobin 0.1 Reduced Hemoglobin 2.8 Total Hemoglobin 9.6 L O2 Delivery Device Ventilator O2 Liters/Min Not Reportable Minute Volume Not Reportable Vent Rate 16 Vent Mode Cmv FiO2 30 Tidal Volume 400 PEEP 8 Peak Inspir Pressure Not Reportable Pressure Support Not Reportable Sodium 137 Potassium 3.9 Chloride 99 Carbon Dioxide 26 Anion Gap 12 BUN 49 H D Creatinine 7.41 H Estim Creat Clear Calc 10 Estimated GFR 8 L Glucose 98 POC Capillary Glucose 107 H Calcium 7.9 L Phosphorus 5.3 H Magnesium 2.2 Total Bilirubin 1.5 H AST 18 ALT 14 Alkaline Phosphatase 105 Ammonia 27 Total Protein 6.1 L Albumin 3.2 L Triglycerides Blood Type Antibody Screen 05/23/25 06:27 WBC RBC Hgb Hct MCV MCH MCHC RDW Plt Count MPV % Immature Plt Fraction Puncture Site ABG pH ABG pCO2 ABG pO2 ABG PO2/FiO2 Ratio ABG HCO3 ABG O2 Saturation ABG O2 Content ABG Base Excess A-a Gradient Oxyhemoglobin Carboxyhemoglobin Methemoglobin Reduced Hemoglobin Total Hemoglobin O2 Delivery Device O2 Liters/Min Minute Volume Vent Rate Vent Mode FiO2 Tidal Volume PEEP Peak Inspir Pressure Pressure Support Sodium Potassium Chloride Carbon Dioxide Anion Gap BUN Creatinine Estim Creat Clear Calc Estimated GFR Glucose POC Capillary Glucose Calcium Phosphorus Magnesium Total Bilirubin AST ALT Alkaline Phosphatase Ammonia Total Protein Albumin Triglycerides Blood Type O Negative Antibody Screen Negative
--- NOTE | 2025-05-23 14:41 | P.PNGI_ITS ---
Progress Note: A&P Assessment and Plan (1) Cirrhosis, alcoholic: Qualifiers: Ascites presence: without ascites Qualified Code(s): K70.30 - Alcoholic cirrhosis of liver without ascites Code(s): K70.30 - Alcoholic cirrhosis of liver without ascites Status: Acute Assessment and Plan: here with encephalopathy, also pulmonary edema after missed dialysis required intubation treated with lactulose and xifaxan, icu care (2) Encephalopathy, hepatic: Code(s): K72.90 - Hepatic failure, unspecified without coma Status: Acute Assessment and Plan: treated (3) Thrombocytopenia: Code(s): D69.6 - Thrombocytopenia, unspecified Status: Acute Assessment and Plan: chronic from cirrhosis (4) ESRD needing dialysis: Code(s): N18.6 - End stage renal disease; Z99.2 - Dependence on renal dialysis Status: Chronic 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 Circulation: Pedal pulses are intact and symmetrical. Feet are warm Abdomen: Decreased bowel sounds. Soft. NT. ND. Extremities: No pedal edema : Patient has a diaper on Neurologic: sedated but open eyes to stimuli Objective Data Vital Signs Vital Signs: Vital Signs - 24 hr 05/22/25 15:00 05/22/25 16:00 05/22/25 16:00 Temperature Pulse Rate 55 L 61 Respiratory Rate 16 20 Blood Pressure 126/61 Pulse Oximetry 100 Oxygen Delivery Mechanical Ventilation Fraction of Inspired Oxygen 05/22/25 16:00 05/22/25 16:00 05/22/25 16:00 Temperature Pulse Rate 58 L 57 L Respiratory Rate 16 Blood Pressure 148/64 H Pulse Oximetry 100 Oxygen Delivery Fraction of Inspired Oxygen 40 05/22/25 16:32 05/22/25 17:00 05/22/25 17:51 Temperature Pulse Rate 56 L 79 73 Respiratory Rate 20 Blood Pressure 142/60 H Pulse Oximetry 100 92 Oxygen Delivery Mechanical Ventilation Fraction of Inspired Oxygen 30 05/22/25 18:00 05/22/25 18:00 05/22/25 19:00 Temperature Pulse Rate 74 74 74 Respiratory Rate 20 20 16 Blood Pressure 116/60 106/57 L Pulse Oximetry 100 100 Oxygen Delivery Fraction of Inspired Oxygen 05/22/25 20:00 05/22/25 20:00 05/22/25 20:00 Temperature 98.2 F Pulse Rate 57 L Respiratory Rate 16 Blood Pressure 148/67 H Pulse Oximetry 100 100 Oxygen Delivery Fraction of Inspired Oxygen 40 40 05/22/25 20:00 05/22/25 20:06 05/22/25 20:10 Temperature Pulse Rate 57 L 57 L 65 Respiratory Rate 16 Blood Pressure Pulse Oximetry 100 Oxygen Delivery Mechanical Ventilation Fraction of Inspired Oxygen 30 05/22/25 20:21 05/22/25 20:24 05/22/25 20:24 Temperature Pulse Rate 55 L 55 L 55 L Respiratory Rate 16 16 16 Blood Pressure Pulse Oximetry Oxygen Delivery Fraction of Inspired Oxygen 05/22/25 21:00 05/22/25 21:05 05/22/25 22:00 Temperature Pulse Rate 56 L 55 L 56 L Respiratory Rate 16 16 16 Blood Pressure 94/53 L Pulse Oximetry 100 Oxygen Delivery Fraction of Inspired Oxygen 05/22/25 22:00 05/22/25 22:00 05/22/25 23:00 Temperature 97.2 F L Pulse Rate 56 L 56 L 57 L Respiratory Rate 16 16 Blood Pressure 96/54 L 114/57 L Pulse Oximetry 100 100 Oxygen Delivery Fraction of Inspired Oxygen 05/22/25 23:01 05/23/25 00:00 05/23/25 00:00 Temperature Pulse Rate 57 L 57 L 57 L Respiratory Rate 16 16 Blood Pressure Pulse Oximetry 100 100 Oxygen Delivery Mechanical Ventilation Mechanical Ventilation Fraction of Inspired Oxygen 30 40 05/23/25 00:00 05/23/25 00:00 05/23/25 00:00 Temperature 98.1 F Pulse Rate 57 L 57 L Respiratory Rate 16 Blood Pressure 99/50 L Pulse Oximetry 100 Oxygen Delivery Fraction of Inspired Oxygen 30 05/23/25 01:00 05/23/25 02:00 05/23/25 02:00 Temperature Pulse Rate 60 64 64 Respiratory Rate 16 16 Blood Pressure 142/63 H Pulse Oximetry 100 Oxygen Delivery Fraction of Inspired Oxygen 05/23/25 02:00 05/23/25 02:02 05/23/25 03:00 Temperature 98.0 F Pulse Rate 64 64 57 L Respiratory Rate 16 16 Blood Pressure 145/61 H 116/51 L Pulse Oximetry 100 100 100 Oxygen Delivery Mechanical Ventilation Fraction of Inspired Oxygen 30 05/23/25 04:00 05/23/25 04:00 05/23/25 04:00 Temperature Pulse Rate 57 L 57 L Respiratory Rate 16 Blood Pressure Pulse Oximetry Oxygen Delivery Fraction of Inspired Oxygen 30 05/23/25 04:00 05/23/25 04:00 05/23/25 05:00 Temperature 97.8 F Pulse Rate 57 L 60 Respiratory Rate 16 16 Blood Pressure 135/56 L 111/54 L Pulse Oximetry 100 100 99 Oxygen Delivery Mechanical Ventilation Fraction of Inspired Oxygen 30 05/23/25 05:06 05/23/25 06:00 05/23/25 06:00 Temperature Pulse Rate 57 L 59 L 59 L Respiratory Rate 16 Blood Pressure 118/61 Pulse Oximetry 100 100 Oxygen Delivery Mechanical Ventilation Fraction of Inspired Oxygen 30 05/23/25 06:00 05/23/25 07:00 05/23/25 07:50 Temperature Pulse Rate 59 L 57 L 60 Respiratory Rate 16 14 12 Blood Pressure 133/63 Pulse Oximetry 99 Oxygen Delivery Fraction of Inspired Oxygen 05/23/25 07:50 05/23/25 07:56 05/23/25 07:58 Temperature 97.5 F L Pulse Rate 60 68 62 Respiratory Rate 12 13 Blood Pressure 123/57 L Pulse Oximetry 100 100 Oxygen Delivery Mechanical Ventilation Fraction of Inspired Oxygen 30 05/23/25 08:00 05/23/25 08:00 05/23/25 08:00 Temperature 98.8 F Pulse Rate 64 Respiratory Rate 13 Blood Pressure 122/61 Pulse Oximetry 100 100 Oxygen Delivery Mechanical Ventilation Fraction of Inspired Oxygen 30 30 05/23/25 08:00 05/23/25 08:00 05/23/25 08:30 Temperature Pulse Rate 74 61 Respiratory Rate Blood Pressure 141/63 H Pulse Oximetry Oxygen Delivery Fraction of Inspired Oxygen 30 05/23/25 08:45 05/23/25 09:00 05/23/25 09:00 Temperature Pulse Rate 58 L 58 L 58 L Respiratory Rate 12 Blood Pressure 149/65 H 149/65 H 151/65 H Pulse Oximetry 100 Oxygen Delivery Fraction of Inspired Oxygen 05/23/25 09:15 05/23/25 09:30 05/23/25 09:45 Temperature Pulse Rate 57 L 60 63 Respiratory Rate Blood Pressure 151/65 H 129/69 122/64 Pulse Oximetry Oxygen Delivery Fraction of Inspired Oxygen 05/23/25 09:50 05/23/25 10:00 05/23/25 10:00 Temperature Pulse Rate 61 64 61 Respiratory Rate 12 Blood Pressure 138/72 Pulse Oximetry Oxygen Delivery Fraction of Inspired Oxygen 05/23/25 10:00 05/23/25 10:15 05/23/25 10:30 Temperature 97.7 F Pulse Rate 61 60 59 L Respiratory Rate 12 Blood Pressure 144/63 H 145/69 H 144/63 H Pulse Oximetry 100 Oxygen Delivery Fraction of Inspired Oxygen 05/23/25 10:45 05/23/25 11:00 05/23/25 11:00 Temperature Pulse Rate 65 65 63 Respiratory Rate 13 Blood Pressure 110/63 115/69 121/64 Pulse Oximetry 100 Oxygen Delivery Fraction of Inspired Oxygen 05/23/25 11:15 05/23/25 11:16 05/23/25 11:30 Temperature Pulse Rate 63 71 64 Respiratory Rate Blood Pressure 121/64 126/67 Pulse Oximetry 100 Oxygen Delivery Mechanical Ventilation Fraction of Inspired Oxygen 30 05/23/25 11:45 05/23/25 12:00 05/23/25 12:00 Temperature 97.8 F Pulse Rate 66 77 63 Respiratory Rate 15 Blood Pressure 120/66 119/70 136/69 Pulse Oximetry 100 Oxygen Delivery Fraction of Inspired Oxygen 05/23/25 12:00 05/23/25 12:00 05/23/25 12:00 Temperature Pulse Rate 68 63 Respiratory Rate 15 Blood Pressure Pulse Oximetry Oxygen Delivery Fraction of Inspired Oxygen 30 05/23/25 12:00 05/23/25 12:05 05/23/25 13:00 Temperature 97.6 F Pulse Rate 72 60 Respiratory Rate 14 12 Blood Pressure 136/69 126/58 L Pulse Oximetry 100 100 100 Oxygen Delivery Mechanical Ventilation Fraction of Inspired Oxygen 30 05/23/25 14:00 05/23/25 14:00 05/23/25 14:12 Temperature Pulse Rate 60 62 61 Respiratory Rate 12 12 Blood Pressure 142/62 H Pulse Oximetry 100 Oxygen Delivery Fraction of Inspired Oxygen 05/23/25 14:23 Temperature Pulse Rate 63 Respiratory Rate Blood Pressure Pulse Oximetry 100 Oxygen Delivery Mechanical Ventilation Fraction of Inspired Oxygen 30 Intake/Output Intake/Output: Intake & Output 05/20/25 05/21/25 05/22/25 05/23/25 23:59 23:59 23:59 23:59 Intake Total 50 825.0 403.7 Output Total 0 1885 3300 Balance 50 -1060.0 -2896.3 Meds/Results Medications: Active Medications Generic Name Dose Route Start Last Admin Trade Name Freq PRN Reason Stop Dose Admin Dextrose 12.5 gm 05/22/25 12:40 Dextrose 50% 25 Gm/50 Ml Syringe IV PUSH PRN PRN Hypoglycemia Protocol Epoetin Nasir-epbx 10,000 units 05/23/25 18:11 05/23/25 10:27 Epoetin Nasir-Epbx 10,000 Units/Ml Vial IV PUSH 05/23/25 18:12 10,000 units ONCE ONE Administration Folic Acid 1 mg 05/22/25 09:00 05/23/25 09:27 Folic Acid 1 Mg/0.2 Ml Inj IV PUSH 1 mg QAM DARWIN Administration Glucagon 1 mg 05/22/25 12:40 Glucagon For Inj 1 Mg Vial IM PRN PRN Hypoglycemia Protocol Glucose 15 gm 05/22/25 12:40 Glucose Oral Gel 15 Gm Of Glucse In 37.5 Gm Tube PO PRN PRN Hypoglycemia Protocol Hydralazine HCl 10 mg 05/22/25 00:47 05/22/25 04:18 Hydralazine Hcl 20 Mg/Ml Vial IV PUSH 10 mg Q8H PRN Administration Blood Pressure - High Levetiracetam 750 mg/ Dextrose 107.5 mls @ 430 mls/hr 05/22/25 09:00 05/23/25 09:42 IVPB Infused Q12HR DARWIN Infusion Metronidazole 500 mg in 100 mls @ 100 mls/hr 05/22/25 02:00 05/23/25 13:50 Flagyl 500 Mg/Iso Soln 100 Ml IVPB 100 mls/hr Q8HR DARWIN Administration Ceftriaxone Sodium 2 gm/ 100 mls @ 200 mls/hr 05/22/25 21:00 05/22/25 23:38 Sodium Chloride IVPB Infused Q24H DARWIN Infusion Albumin Human 50 mls @ 999 mls/hr 05/22/25 06:20 Albutein IVPB 06/21/25 06:19 Q10M PRN HYPOTENSION Propofol 100 mls @ 6.57 mls/hr 05/22/25 12:25 05/23/25 14:12 Diprivan IV CONT 15 mcg/kg/min .[id number] DARWIN 6.57 mls/hr Protocol Titration 15 MCG/KG/MIN Dextrose 1,000 mls @ 100 mls/hr 05/22/25 12:40 Dextrose 5% 1,000 Ml IVPB PRN PRN Hypoglycemia Protocol Insulin Aspart 2 - 5 units 05/22/25 18:00 05/23/25 13:40 Insulin Aspart (*Bkc) 100 Units/Ml SUB-Q Not Given Q6HR DARWIN Protocol Lactulose 40 gm 05/22/25 13:00 05/23/25 13:40 Lactulose 20 Gm/30 Ml Udc FEED TUBE 40 gm TID DARWIN Administration Lidocaine/Prilocaine 1 each 05/22/25 06:26 Lidocaine/Prilocaine Cream 2.5-2.5% Tube TOPICAL WITH DIALYSIS PRN for dialysis Protocol Multi-Ingred Cream/Lotion/Oil/Oint 1 applic 05/22/25 21:00 05/23/25 10:00 Mineral Oil/White Petrolatum Ointment EACH EYE 1 applic Q12HR DARWIN Administration Pantoprazole Sodium 40 mg 05/22/25 09:00 05/23/25 08:01 Pantoprazole Sodium Iv 40 Mg Vial IV PUSH 40 mg Q12HR DARWIN Administration Rifaximin 550 mg 05/22/25 21:00 05/23/25 08:02 Rifaximin 550 Mg Tablet FEED TUBE 550 mg Q12HR DARWIN Administration Thiamine HCl 100 mg 05/22/25 09:00 05/23/25 08:02 Thiamine Hcl 200 Mg/2 Ml Vial IV PUSH 100 mg QAM DARWIN Administration Radiology Results: ITS Impressions Abdomen X-Ray 05/22/25 13:09 IMPRESSION: Adequate placement of gastric catheter. Several loops of gas dilated possibly distended small bowel and distended appearance of the gastric bubble. Query if patient has presentation suggestive of ileus or obstruction. Head CT 05/22/25 14:16 IMPRESSION: 1. No acute intracranial findings. Chest/Abdomen/Pelvis CT 05/22/25 14:19 IMPRESSION: 1. New patchy consolidation and groundglass opacities in the dependent bilateral lower lobes most consistent with aspiration and/or pneumonia. 2. Small left and tiny right pleural effusions. 3. Cardiomegaly. 4. Nodular cirrhotic liver with splenomegaly and markedly enlarged splenorenal collaterals consistent with secondary portal venous hypertension. 5. Small amount of ascites scattered throughout the abdomen and pelvis likely related to liver disease. 6. Bilateral nonobstructing nephrolithiasis. Chest X-Ray 05/23/25 09:13 IMPRESSION: 1. Worsening bibasilar airspace disease. Labs Labs: Laboratory Results - last 24 hr 05/22/25 05/23/25 05/23/25 17:48 00:13 04:39 WBC 3.9 L RBC 2.78 L Hgb 9.2 L Hct 28.0 L MCV 100.7 H MCH 33.1 MCHC 32.9 RDW 15.8 H Plt Count 23 L* MPV 9.7 % Immature Plt Fraction 3.0 Puncture Site ABG pH ABG pCO2 ABG pO2 ABG PO2/FiO2 Ratio ABG HCO3 ABG O2 Saturation ABG O2 Content ABG Base Excess A-a Gradient Oxyhemoglobin Carboxyhemoglobin Methemoglobin Reduced Hemoglobin Total Hemoglobin O2 Delivery Device O2 Liters/Min Minute Volume Vent Rate Vent Mode FiO2 Tidal Volume PEEP Peak Inspir Pressure Pressure Support Sodium 137 Potassium 3.9 Chloride 99 Carbon Dioxide 26 Anion Gap 12 BUN 49 H D Creatinine 7.41 H Estim Creat Clear Calc 10 Estimated GFR 8 L Glucose 98 POC Capillary Glucose 105 107 H Calcium 7.9 L Phosphorus 5.3 H Magnesium 2.2 Total Bilirubin 1.5 H AST 18 ALT 14 Alkaline Phosphatase 105 Ammonia 27 Total Protein 6.1 L Albumin 3.2 L Blood Type Antibody Screen 05/23/25 05/23/25 05/23/25 05:15 06:27 13:38 WBC RBC Hgb Hct MCV MCH MCHC RDW Plt Count MPV % Immature Plt Fraction Puncture Site Right radial ABG pH 7.563 H* ABG pCO2 28.6 L ABG pO2 96.0 ABG PO2/FiO2 Ratio 3.20 ABG HCO3 25.2 ABG O2 Saturation 98.2 ABG O2 Content 13.2 L ABG Base Excess 3.4 A-a Gradient 84.3 Oxyhemoglobin 96.7 Carboxyhemoglobin 0.4 Methemoglobin 0.1 Reduced Hemoglobin 2.8 Total Hemoglobin 9.6 L O2 Delivery Device Ventilator O2 Liters/Min Not Reportable Minute Volume Not Reportable Vent Rate 16 Vent Mode Cmv FiO2 30 Tidal Volume 400 PEEP 8 Peak Inspir Pressure Not Reportable Pressure Support Not Reportable Sodium Potassium Chloride Carbon Dioxide Anion Gap BUN Creatinine Estim Creat Clear Calc Estimated GFR Glucose POC Capillary Glucose 104 Calcium Phosphorus Magnesium Total Bilirubin AST ALT Alkaline Phosphatase Ammonia Total Protein Albumin Blood Type O Negative Antibody Screen Negative
[2025-05-23] MEDS: cefTRIAXone 2 GM in SODIUM CHLORIDE 0.9% IV 100 ML 200 ML IVPB (20:24)
[2025-05-24] VITALS (42 sets, daily range): BP systolic 115–158; BP diastolic 51–95; PULSE 64–75; RESP 10–24; TEMP 36.1–37.8; O2SAT 94–100
--- NOTE | 2025-05-24 00:09 | PCRCNOTE ---
ABG order for 0000 is a duplicate order. ABG will be drawn at 0500 per standard ICU order.
[2025-05-24 04:23] LABS: Hematocrit 25.5 % (42.0-52.0); Hemoglobin 8.4 g/dL (14.0-18.0); Immature Platelet Fraction Pct 4.2 % (0.9-11.2); Mean Corpuscular HGB Conc 32.9 g/dl (32-36); Mean Corpuscular Hemoglobin 32.9 pg (26-34); Mean Corpuscular Volume 100.0 fl (80-100); Platelet Count Result 25 k/mm3 (150-375); Red Blood Count 2.55 M/mm3 (4.6-6.20); White Blood Count 2.8 K/mm3 (4.5-10.0)
[2025-05-24 04:28] LABS: Ammonia 20 umol/L (9-30)
[2025-05-24 04:45] LABS: Alanine Aminotransferase 12 U/L (6-50); Albumin Level 3.1 g/dL (3.5-5.1); Alkaline Phosphatase 106 U/L (38-126); Anion Gap 7 mmol/L (4-12); Aspartate Amino Transferase 17 U/L (17-59); Bilirubin,Total 1.2 mg/dL (0.2-1.3); Blood Urea Nitrogen 33 mg/dL (9-20); Calcium 8.5 mg/dL (8.4-10.2); Carbon Dioxide 29 mmol/L (22-30); Chloride 101 mmol/L (98-107); Estimated CRCL calculation 13 ml/min; Estimated Glomerular Filt Rate 10; Glucose 118 mg/dL (65-110); Magnesium 2.2 mg/dL (1.6-2.3); Potassium 3.3 mmol/L (3.4-5.0); Sodium 137 mmol/L (137-145); Total Protein 5.9 g/dL (6.3-8.2); Triglycerides 196 mg/dL (<150)
[2025-05-24 05:04] LABS: Alveolar/Arterial O2 Gradient 46.9 mmHg; Carboxyhemoglobin 0.1 % THb (0-2.0); Fractional Inspired Oxygen 30 %; HCO3 ABG 29.5 mEq/l (22.0-26.0); Methemoglobin ABG 0.1 %THb (0-1.5); Oxygen Content ABG 13.3 %vol (16.0-22.0); Oxygen Saturation ABG 98.7 % (95.0-100.0); PCO2 ABG 37.5 mmHg (35.0-45.0); PO2 ABG 122.9 mmHg (80.0-100.0); PO2 FiO2 Ratio Arterial Blood 4.10 %; Reduced Hemoglobin 1.8 %THb (0-5.0)
[2025-05-24 05:22] LABS: Modified Allen's Test Pass; Site Drawn RIGHT RADIAL
[2025-05-24 05:23] LABS: Arterial Blood Gas Ventilator rate 12 /MIN
[2025-05-24 05:24] LABS: Arterial Blood Gas Tidal Volume 350 ml
[2025-05-24] MEDS: metroNIDAZOLE 500 MG/ISO 100ML 500 MG/100 ML BAG 100 MG IVPB ×3 (05:40→21:18)
[2025-05-24] MEDS: LACTULOSE 20 GM/30 ML UDC 40 GM FEED TUBE ×3 (09:26→16:38)
[2025-05-24] MEDS: FOLIC ACID 1 MG/0.2 ML INJ IV PUSH (09:27)
[2025-05-24] MEDS: MINERAL OIL/WHITE PETROLATUM OINTMENT 1 APPLIC EACH EYE (09:27)
[2025-05-24] MEDS: PANTOPRAZOLE SODIUM IV 40 MG VIAL IV PUSH ×2 (09:27→20:42)
[2025-05-24] MEDS: THIAMINE HCL 200 MG/2 ML VIAL 100 MG IV PUSH (09:27)
--- NOTE | 2025-05-24 10:27 | P.PNINT_ITS ---
Progress Note: A&P Assessment and Plan (1) Acute respiratory failure: Code(s): J96.00 - Acute respiratory failure, unspecified whether with hypoxia or hypercapnia Status: Resolved Assessment and Plan: Acute respiratory failure secondary to hepatic encephalopathy and pulmonary edema which is likely secondary to missed hemodialysis session and congestive heart failure Patient emergently transferred to ICU from dialysis center. He was unresponsive, hypoxic in respiratory distress Patient emergently intubated in the ICU and now placed on invasive mechanical ventilation. Large amount of frothy white secretions seen in the oropharynx and through the ET tube at the time of intubation Patient was dialyzed once Management of hepatic encephalopathy as below 05/22: CT chest -New patchy consolidation and groundglass opacities in the dependent bilateral lower lobes most consistent with aspiration and/or pneumonia. 05/23: Continue mechanical ventilation. Decrease tidal volume to 350 and rate to 12. Received dialysis with 3000 mL in fluid removal Continue ceftriaxone a and and Flagyl which should cover for aspiration pneumonia although this appears more of a case of pulmonary edema -05/24: Patient more awake, alert, following commands, ammonia levels are within normal limits PA have asked the bedside RN to discontinue the propofol, chest x-ray improving. Will place patient on SBT once he is more awake and evaluate for extubation 05/05/2025: Echocardiogram Summary 1. Complete two-dimensional, color flow and Doppler transthoracic e chocardiogram is performed. 2. Left ventricular chamber dimension is normal. 3. Left ventricular systolic function is normal, estimated at 60-65. 4. There is mild concentric increased left ventricular wall thickness. 5. The left ventricular diastolic function is abnormal. 6. E/e' 18 is elevated. 7. Left atrial chamber dimension is moderately enlarged. 8. Right atrial chamber dimension is mildly enlarged. 9. There is moderate aortic valve sclerosis. 10. There is mild aortic valve stenosis with a peak velocity of 313 cm/s, mean gradient of 25 mmHg, and aortic valve area of 1.7 cm2. 11. The mitral valve has a moderately calcified annulus. 12. There is trace mitral valve regurgitation. 13. There is trace tricuspid valve regurgitation. 14. No pulmonary hypertension, estimated pulmonary arterial systolic pressure is 33 mmHg. 15. The aortic root size at the sinus of Valsalva is borderline dilated at 4.1 cm. 16. There is trivial pericardial effusion. (2) Pulmonary edema: Code(s): J81.1 - Chronic pulmonary edema Status: Acute Assessment and Plan: See above (3) Hypertension: Code(s): I10 - Essential (primary) hypertension Status: Chronic Assessment and Plan: Patient now intubated and sedated. Will restart his home antihypertensives (4) Hyperammonemia: Code(s): E72.20 - Disorder of urea cycle metabolism, unspecified Status: Acute Assessment and Plan: Secondary to cirrhosis. 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 He also has esophageal varices. INR 1.5 Management of elevated ammonia as above Patient is currently on antibiotics for SBP prophylaxis and ultrasound-guided paracentesis has been ordered. The radiologist felt the fluid who was too small in amount. Plan to re-evaluate on Sunday. Patient may need platelet transfusion prior to the procedure Appreciate GI evaluation (7) Esophageal varices in alcoholic cirrhosis: Code(s): K70.30 - Alcoholic cirrhosis of liver without ascites; I85.10 - Secondary esophageal varices without bleeding Status: Acute Assessment and Plan: No objective sign of active bleeding IV Protonix (8) Thrombocytopenia: Code(s): D69.6 - Thrombocytopenia, unspecified Status: Acute Assessment and Plan: Secondary to cirrhosis Monitor Transfuse if needed (9) ESRD needing dialysis: Code(s): N18.6 - End stage renal disease; Z99.2 - Dependence on renal dialysis Status: Chronic Assessment and Plan: Patient missed his last 2 dialysis session is currently on volume overload 05/22 Patient received his dialysis this morning which was cut short by 10 minutes 05/23: Dialyzed with 3000 mL in fluid removal Appreciate nephrology following the patient, dialysis per Nephrology team (10) Seizure disorder: Code(s): G40.909 - Epilepsy, unspecified, not intractable, without status epilepticus Status: Acute Assessment and Plan: Continue Bernice Currently on propofol infusion Plan DVT prophylaxis: SCDs, no chemoprophylaxis due to chronic thrombocytopenia Stress ulcer prophylaxis: Protonix Nutrition: Tolerating tube feeds Code Status: Full Code Total Critical Care Time: 32 minutes Discussed with patient's brother and [id number] at bedside and updated them with patient's condition plan of care. They stated that he has had previous intubations. I discussed with them that disease sedation is going to be weaned and patient be placed on a spontaneous breathing trial and if he passes he may be extubated. I answered all their questions Due to a high probability of clinically significant, life threatening deterioration, the patient required my highest level of preparedness to intervene emergently and I personally spent this critical care time directly and personally managing the patient. This critical care time included obtaining a history; examining the patient; pulse oximetry; ordering and review of studies; arranging urgent treatment with development of a management plan; evaluation of patient's response to treatment; frequent reassessment; and discussions with other providers. It was exclusive of separately billable procedures and treating other patients and teaching time. Please see Assessment and Plan section and the rest of the note for further information on patient assessment and treatment Subjective Date/time seen: 05/24/25 10:27 Interval history: Reason for consult: Acute respiratory failure, hepatic encephalopathy, pulmonary edema secondary to missed hemodialysis A 05/24/2025: Patient seen and examined the ICU, remains intubated on CMV mode of ventilation, peep of 8, 30% FiO2. Sedated with propofol infusion, opens his eyes, nods to questions and follows simple commands. Dialysis on 05/23 with 3000 mL in fluid removal. Patient is hemodynamically stable, afebrile remains pancytopenic Review of Systems Review of Systems: ROS unobtainable: Yes unobtainable due to endotracheal tube, unobtainable due to medical condition and unobtainable due to mental status Exam Narrative: General: Patient is intubated, sedated, is awake, in no acute distress HEENT: Pupils equal and reactive, sclerae is clear, ETT in place Lungs: Bilateral coarse breath sounds, decreased at bases, clear to auscultation in the upper regions, no wheezing Cardiac: RRR. Normal S1 S2. 2/6 murmur in the apex Circulation: Pedal pulses are intact and symmetrical. Feet are warm Abdomen: Decreased bowel sounds. Soft. Nontender, nondistended Extremities: No pedal edema : Patient has a diaper on Neurologic: Intubated, sedated, opens his eyes, nods to questions and follows simple commands in all extremities Objective Data Vital Signs Vital Signs: Vital Signs - 24 hr 05/23/25 10:30 05/23/25 10:45 05/23/25 11:00 Temperature Pulse Rate 59 L 65 65 Respiratory Rate Blood Pressure 144/63 H 110/63 115/69 Pulse Oximetry Oxygen Delivery Fraction of Inspired Oxygen 05/23/25 11:00 05/23/25 11:15 05/23/25 11:16 Temperature Pulse Rate 63 63 71 Respiratory Rate 13 Blood Pressure 121/64 121/64 Pulse Oximetry 100 100 Oxygen Delivery Mechanical Ventilation Fraction of Inspired Oxygen 30 05/23/25 11:30 05/23/25 11:45 05/23/25 12:00 Temperature Pulse Rate 64 66 77 Respiratory Rate Blood Pressure 126/67 120/66 119/70 Pulse Oximetry Oxygen Delivery Fraction of Inspired Oxygen 05/23/25 12:00 05/23/25 12:00 05/23/25 12:00 Temperature 97.8 F Pulse Rate 63 68 Respiratory Rate 15 Blood Pressure 136/69 Pulse Oximetry 100 Oxygen Delivery Fraction of Inspired Oxygen 30 05/23/25 12:00 05/23/25 12:00 05/23/25 12:05 Temperature 97.6 F Pulse Rate 63 72 Respiratory Rate 15 14 Blood Pressure 136/69 Pulse Oximetry 100 100 Oxygen Delivery Mechanical Ventilation Fraction of Inspired Oxygen 30 05/23/25 13:00 05/23/25 14:00 05/23/25 14:00 Temperature Pulse Rate 60 60 62 Respiratory Rate 12 12 Blood Pressure 126/58 L 142/62 H Pulse Oximetry 100 100 Oxygen Delivery Fraction of Inspired Oxygen 05/23/25 14:12 05/23/25 14:23 05/23/25 15:00 Temperature Pulse Rate 61 63 64 Respiratory Rate 12 12 Blood Pressure 107/55 L Pulse Oximetry 100 99 Oxygen Delivery Mechanical Ventilation Fraction of Inspired Oxygen 30 05/23/25 16:00 05/23/25 16:00 05/23/25 16:00 Temperature 98.5 F Pulse Rate 60 60 Respiratory Rate 12 12 Blood Pressure 110/61 Pulse Oximetry 99 100 Oxygen Delivery Mechanical Ventilation Fraction of Inspired Oxygen 30 05/23/25 16:00 05/23/25 16:00 05/23/25 17:00 Temperature 98.6 F Pulse Rate 63 63 Respiratory Rate 13 Blood Pressure 131/62 Pulse Oximetry 99 Oxygen Delivery Fraction of Inspired Oxygen 30 05/23/25 17:04 05/23/25 18:00 05/23/25 18:00 Temperature 98.6 F Pulse Rate 65 62 63 Respiratory Rate 13 13 Blood Pressure 137/62 Pulse Oximetry 98 100 Oxygen Delivery Mechanical Ventilation Fraction of Inspired Oxygen 30 05/23/25 18:00 05/23/25 19:00 05/23/25 19:48 Temperature Pulse Rate 63 62 Respiratory Rate 12 Blood Pressure 143/63 H Pulse Oximetry 100 Oxygen Delivery Fraction of Inspired Oxygen 30 05/23/25 20:00 05/23/25 20:00 05/23/25 20:00 Temperature 97.5 F L Pulse Rate 62 62 Respiratory Rate 12 12 Blood Pressure 127/61 Pulse Oximetry 100 100 Oxygen Delivery Mechanical Ventilation Fraction of Inspired Oxygen 30 05/23/25 20:00 05/23/25 20:16 05/23/25 21:00 Temperature Pulse Rate 62 65 63 Respiratory Rate 13 Blood Pressure 139/52 L Pulse Oximetry 98 100 Oxygen Delivery Mechanical Ventilation Fraction of Inspired Oxygen 30 05/23/25 21:58 05/23/25 21:58 05/23/25 22:00 Temperature Pulse Rate 60 60 60 Respiratory Rate 12 12 Blood Pressure Pulse Oximetry Oxygen Delivery Fraction of Inspired Oxygen 05/23/25 22:00 05/23/25 23:00 05/23/25 23:21 Temperature 98.0 F Pulse Rate 60 64 61 Respiratory Rate 13 12 Blood Pressure 126/53 L 131/58 L Pulse Oximetry 100 100 100 Oxygen Delivery Mechanical Ventilation Fraction of Inspired Oxygen 30 05/24/25 00:00 05/24/25 00:00 05/24/25 00:00 Temperature Pulse Rate 66 Respiratory Rate 13 Blood Pressure Pulse Oximetry 99 Oxygen Delivery Mechanical Ventilation Fraction of Inspired Oxygen 30 30 05/24/25 00:00 05/24/25 00:00 05/24/25 01:00 Temperature 99.0 F Pulse Rate 66 66 67 Respiratory Rate 13 13 Blood Pressure 126/51 L 115/55 L Pulse Oximetry 99 98 Oxygen Delivery Fraction of Inspired Oxygen 05/24/25 02:00 05/24/25 02:00 05/24/25 02:00 Temperature 99 F Pulse Rate 67 67 67 Respiratory Rate 13 Blood Pressure 131/54 L Pulse Oximetry 99 99 Oxygen Delivery Mechanical Ventilation Fraction of Inspired Oxygen 30 05/24/25 02:00 05/24/25 03:00 05/24/25 04:00 Temperature Pulse Rate 67 68 68 Respiratory Rate 13 13 13 Blood Pressure 122/51 L Pulse Oximetry 100 Oxygen Delivery Fraction of Inspired Oxygen 05/24/25 04:00 05/24/25 04:00 05/24/25 04:00 Temperature 98.7 F Pulse Rate 70 69 Respiratory Rate 13 Blood Pressure 122/53 L Pulse Oximetry 100 Oxygen Delivery Fraction of Inspired Oxygen 30 05/24/25 04:00 05/24/25 05:00 05/24/25 05:29 Temperature Pulse Rate 67 67 Respiratory Rate 12 Blood Pressure 127/59 L Pulse Oximetry 100 100 100 Oxygen Delivery Mechanical Ventilation Mechanical Ventilation Fraction of Inspired Oxygen 30 30 05/24/25 06:00 05/24/25 06:00 05/24/25 06:00 Temperature Pulse Rate 68 68 68 Respiratory Rate 14 14 Blood Pressure 131/60 Pulse Oximetry 100 Oxygen Delivery Fraction of Inspired Oxygen 05/24/25 07:00 05/24/25 07:33 05/24/25 07:42 Temperature 100.1 F H Pulse Rate 71 69 Respiratory Rate 12 Blood Pressure 158/65 H Pulse Oximetry 100 100 Oxygen Delivery Mechanical Ventilation Fraction of Inspired Oxygen 30 05/24/25 07:43 05/24/25 07:45 05/24/25 08:00 Temperature 98.4 F 98.2 F 98.2 F Pulse Rate 69 Respiratory Rate 13 Blood Pressure 126/61 Pulse Oximetry 100 Oxygen Delivery Fraction of Inspired Oxygen 05/24/25 08:00 05/24/25 08:00 05/24/25 08:00 Temperature Pulse Rate 69 Respiratory Rate 13 Blood Pressure Pulse Oximetry 100 Oxygen Delivery Mechanical Ventilation Fraction of Inspired Oxygen 30 30 05/24/25 08:00 05/24/25 08:30 05/24/25 09:00 Temperature Pulse Rate 70 69 69 Respiratory Rate 13 13 Blood Pressure 127/61 Pulse Oximetry 100 Oxygen Delivery Fraction of Inspired Oxygen 05/24/25 09:00 05/24/25 10:00 05/24/25 10:21 Temperature 99.4 F Pulse Rate 68 65 Respiratory Rate 13 12 Blood Pressure 136/63 Pulse Oximetry 100 Oxygen Delivery Fraction of Inspired Oxygen Intake/Output Intake/Output: Intake & Output 05/21/25 05/22/25 05/23/25 05/24/25 23:59 23:59 23:59 23:59 Intake Total 50 825.0 1153.1 646.1 Output Total 0 1885 3350 860 Balance 50 -1060.0 -2196.9 -213.9 Meds/Results Medications: Active Medications Generic Name Dose Route Start Last Admin Trade Name Freq PRN Reason Stop Dose Admin Dextrose 12.5 gm 05/22/25 12:40 Dextrose 50% 25 Gm/50 Ml Syringe IV PUSH PRN PRN Hypoglycemia Protocol Folic Acid 1 mg 05/22/25 09:00 05/24/25 09:27 Folic Acid 1 Mg/0.2 Ml Inj IV PUSH 1 mg QAM DARWIN Administration Glucagon 1 mg 05/22/25 12:40 Glucagon For Inj 1 Mg Vial IM PRN PRN Hypoglycemia Protocol Glucose 15 gm 05/22/25 12:40 Glucose Oral Gel 15 Gm Of Glucse In 37.5 Gm Tube PO PRN PRN Hypoglycemia Protocol Hydralazine HCl 10 mg 05/22/25 00:47 05/22/25 04:18 Hydralazine Hcl 20 Mg/Ml Vial IV PUSH 10 mg Q8H PRN Administration Blood Pressure - High Levetiracetam 750 mg/ Dextrose 107.5 mls @ 430 mls/hr 05/22/25 09:00 05/24/25 09:26 IVPB 430 mls/hr Q12HR DARWIN Administration Metronidazole 500 mg in 100 mls @ 100 mls/hr 05/22/25 02:00 05/24/25 06:46 Flagyl 500 Mg/Iso Soln 100 Ml IVPB Infused Q8HR DARWIN Infusion Ceftriaxone Sodium 2 gm/ 100 mls @ 200 mls/hr 05/22/25 21:00 05/23/25 21:07 Sodium Chloride IVPB Infused Q24H DARWIN Infusion Albumin Human 50 mls @ 999 mls/hr 05/22/25 06:20 Albutein IVPB 06/21/25 06:19 Q10M PRN HYPOTENSION Propofol 100 mls @ 0 mls/hr 05/22/25 12:25 05/24/25 09:00 Diprivan IV CONT 0 mcg/kg/min .Q0M DARWIN 0 mls/hr Protocol Titration 0 MCG/KG/MIN Dextrose 1,000 mls @ 100 mls/hr 05/22/25 12:40 Dextrose 5% 1,000 Ml IVPB PRN PRN Hypoglycemia Protocol Insulin Aspart 2 - 5 units 05/22/25 18:00 05/24/25 05:34 Insulin Aspart (*Bkc) 100 Units/Ml SUB-Q Not Given Q6HR DARWIN Protocol Lactulose 40 gm 05/22/25 13:00 05/24/25 09:26 Lactulose 20 Gm/30 Ml Udc FEED TUBE 40 gm TID DARWIN Administration Lidocaine/Prilocaine 1 each 05/22/25 06:26 Lidocaine/Prilocaine Cream 2.5-2.5% Tube TOPICAL WITH DIALYSIS PRN for dialysis Protocol Multi-Ingred Cream/Lotion/Oil/Oint 1 applic 05/22/25 21:00 05/24/25 09:27 Mineral Oil/White Petrolatum Ointment EACH EYE 1 applic Q12HR DARWIN Administration Pantoprazole Sodium 40 mg 05/22/25 09:00 05/24/25 09:27 Pantoprazole Sodium Iv 40 Mg Vial IV PUSH 40 mg Q12HR DARWIN Administration Rifaximin 550 mg 05/22/25 21:00 05/24/25 09:27 Rifaximin 550 Mg Tablet FEED TUBE 550 mg Q12HR DARWIN Administration Thiamine HCl 100 mg 05/22/25 09:00 05/24/25 09:27 Thiamine Hcl 200 Mg/2 Ml Vial IV PUSH 100 mg QAM DARWIN Administration Radiology Results: ITS Impressions Abdomen X-Ray 05/22/25 13:09 IMPRESSION: Adequate placement of gastric catheter. Several loops of gas dilated possibly distended small bowel and distended appearance of the gastric bubble. Query if patient has presentation suggestive of ileus or obstruction. Head CT 05/22/25 14:16 IMPRESSION: 1. No acute intracranial findings. Chest/Abdomen/Pelvis CT 05/22/25 14:19 IMPRESSION: 1. New patchy consolidation and groundglass opacities in the dependent bilateral lower lobes most consistent with aspiration and/or pneumonia. 2. Small left and tiny right pleural effusions. 3. Cardiomegaly. 4. Nodular cirrhotic liver with splenomegaly and markedly enlarged splenorenal collaterals consistent with secondary portal venous hypertension. 5. Small amount of ascites scattered throughout the abdomen and pelvis likely related to liver disease. 6. Bilateral nonobstructing nephrolithiasis. Labs Labs: Laboratory Results - last 24 hr 05/23/25 05/23/25 05/24/25 13:38 17:36 00:39 WBC RBC Hgb Hct MCV MCH MCHC RDW Plt Count MPV % Immature Plt Fraction Puncture Site ABG pH ABG pCO2 ABG pO2 ABG PO2/FiO2 Ratio ABG HCO3 ABG O2 Saturation ABG O2 Content ABG Base Excess A-a Gradient Oxyhemoglobin Carboxyhemoglobin Methemoglobin Reduced Hemoglobin Total Hemoglobin O2 Delivery Device O2 Liters/Min Minute Volume Vent Rate Vent Mode FiO2 Tidal Volume PEEP Peak Inspir Pressure Pressure Support Sodium Potassium Chloride Carbon Dioxide Anion Gap BUN Creatinine Estim Creat Clear Calc Estimated GFR Glucose POC Capillary Glucose 104 117 H 114 H Calcium Phosphorus Magnesium Total Bilirubin AST ALT Alkaline Phosphatase Ammonia Total Protein Albumin Triglycerides 05/24/25 05/24/25 04:14 04:54 WBC 2.8 L RBC 2.55 L Hgb 8.4 L Hct 25.5 L MCV 100.0 MCH 32.9 MCHC 32.9 RDW 15.9 H Plt Count 25 L MPV 10.9 H % Immature Plt Fraction 4.2 Puncture Site Right radial ABG pH 7.514 H* ABG pCO2 37.5 ABG pO2 122.9 H ABG PO2/FiO2 Ratio 4.10 ABG HCO3 29.5 H ABG O2 Saturation 98.7 ABG O2 Content 13.3 L ABG Base Excess 6.2 A-a Gradient 46.9 Oxyhemoglobin 98.0 Carboxyhemoglobin 0.1 Methemoglobin 0.1 Reduced Hemoglobin 1.8 Total Hemoglobin 9.5 L O2 Delivery Device Ventilator O2 Liters/Min Not Reportable Minute Volume Not Reportable Vent Rate 12 Vent Mode Cmv FiO2 30 Tidal Volume 350 PEEP 8 Peak Inspir Pressure Not Reportable Pressure Support Not Reportable Sodium 137 Potassium 3.3 L Chloride 101 Carbon Dioxide 29 Anion Gap 7 BUN 33 H D Creatinine 5.68 H Estim Creat Clear Calc 13 Estimated GFR 10 L Glucose 118 H POC Capillary Glucose Calcium 8.5 Phosphorus 4.0 Magnesium 2.2 Total Bilirubin 1.2 AST 17 ALT 12 Alkaline Phosphatase 106 Ammonia 20 Total Protein 5.9 L Albumin 3.1 L Triglycerides 196 H Quality VTE Prophylaxis VTE prophylaxis: mechanical ordered
--- NOTE | 2025-05-24 10:44 | P.PNNP_ITS ---
Progress Note: A&P Assessment and Plan (1) End stage renal disease: Code(s): N18.6 - End stage renal disease Status: Chronic Assessment and Plan: * HD Scheduled for tomorrow. * volume status looks okay. * Electrolytes and BUN are Doing well. (2) Altered mental status: Qualifiers: Altered mental status type: unspecified Qualified Code(s): R41.82 - Altered mental status, unspecified Code(s): R41.82 - Altered mental status, unspecified Status: Acute Assessment and Plan: * presumed due to hepatic encephalopathy: * elevated ammonia levels on admission * suspected medication non-compliance (with lactulose) * his high BUN may have contributed as well. * Improved. (3) Hyperkalemia: Code(s): E87.5 - Hyperkalemia Status: Acute Assessment and Plan: * due missed dialysis treatments * resolved (4) Cirrhosis: Code(s): K74.60 - Unspecified cirrhosis of liver Status: Acute Assessment and Plan: * known history * has been sober for the last 2 - 3 years * ammonia level was extremely high on admission * continue lactulose enemas * GI recommendations noted * empiric antibiotics for possible SBP * paracentesis planned (5) Hypertension: Code(s): I10 - Essential (primary) hypertension Status: Chronic Assessment and Plan: * systolic looks better. Ranging from 110s to 150s. * given mentation, oral BP medications may be difficult to administer * use PRN IV medications for now * resume oral medications as mentation improves. (6) Anemia: Code(s): D64.9 - Anemia, unspecified Status: Chronic Assessment and Plan: * due to ESRD with contributions from liver disease * On Epogen with HD * Check a CBC tomorrow (7) Pancytopenia: Code(s): D61.818 - Other pancytopenia Status: Acute Assessment and Plan: * somewhat of a chronic issue * thought to be secondary to liver disease/increased reticuloendothelial activity * anemia further complicated by ESRD (8) Seizure disorder: Code(s): G40.909 - Epilepsy, unspecified, not intractable, without status epilepticus Status: Acute Assessment and Plan: * known history of seizure disorder * no seizures in several years * on IV Keppra (given NPO status) * no evidence of seizure activity at this time Subjective Date/time seen: 05/24/25 10:44 Interval history: Jj is still on the ventilator. Sedatives have been reduced and he is more interactive today. He does recognize me. Brother and [id number]-ohr are in the room. Exam Narrative: WDWN in NAD on a ventilator in the ICU. A little bit more responsive tod skin no rash head ncat lungs mildly coarse with upper airways noise cor reg no rub abd BS+ nontender and soft ext no edema Or cyanosis. Objective Data Vital Signs Vital Signs: Vital Signs - 24 hr 05/23/25 10:45 05/23/25 11:00 05/23/25 11:00 Temperature Pulse Rate 65 65 63 Respiratory Rate 13 Blood Pressure 110/63 115/69 121/64 Pulse Oximetry 100 Oxygen Delivery Fraction of Inspired Oxygen 05/23/25 11:15 05/23/25 11:16 05/23/25 11:30 Temperature Pulse Rate 63 71 64 Respiratory Rate Blood Pressure 121/64 126/67 Pulse Oximetry 100 Oxygen Delivery Mechanical Ventilation Fraction of Inspired Oxygen 30 05/23/25 11:45 05/23/25 12:00 05/23/25 12:00 Temperature 97.8 F Pulse Rate 66 77 63 Respiratory Rate 15 Blood Pressure 120/66 119/70 136/69 Pulse Oximetry 100 Oxygen Delivery Fraction of Inspired Oxygen 05/23/25 12:00 05/23/25 12:00 05/23/25 12:00 Temperature Pulse Rate 68 63 Respiratory Rate 15 Blood Pressure Pulse Oximetry Oxygen Delivery Fraction of Inspired Oxygen 30 05/23/25 12:00 05/23/25 12:05 05/23/25 13:00 Temperature 97.6 F Pulse Rate 72 60 Respiratory Rate 14 12 Blood Pressure 136/69 126/58 L Pulse Oximetry 100 100 100 Oxygen Delivery Mechanical Ventilation Fraction of Inspired Oxygen 30 05/23/25 14:00 05/23/25 14:00 05/23/25 14:12 Temperature Pulse Rate 60 62 61 Respiratory Rate 12 12 Blood Pressure 142/62 H Pulse Oximetry 100 Oxygen Delivery Fraction of Inspired Oxygen 05/23/25 14:23 05/23/25 15:00 05/23/25 16:00 Temperature Pulse Rate 63 64 60 Respiratory Rate 12 12 Blood Pressure 107/55 L Pulse Oximetry 100 99 Oxygen Delivery Mechanical Ventilation Fraction of Inspired Oxygen 30 05/23/25 16:00 05/23/25 16:00 05/23/25 16:00 Temperature 98.5 F Pulse Rate 60 Respiratory Rate 12 Blood Pressure 110/61 Pulse Oximetry 99 100 Oxygen Delivery Mechanical Ventilation Fraction of Inspired Oxygen 30 30 05/23/25 16:00 05/23/25 17:00 05/23/25 17:04 Temperature 98.6 F Pulse Rate 63 63 65 Respiratory Rate 13 Blood Pressure 131/62 Pulse Oximetry 99 98 Oxygen Delivery Mechanical Ventilation Fraction of Inspired Oxygen 30 05/23/25 18:00 05/23/25 18:00 05/23/25 18:00 Temperature 98.6 F Pulse Rate 62 63 63 Respiratory Rate 13 13 Blood Pressure 137/62 Pulse Oximetry 100 Oxygen Delivery Fraction of Inspired Oxygen 05/23/25 19:00 05/23/25 19:48 05/23/25 20:00 Temperature 97.5 F L Pulse Rate 62 62 Respiratory Rate 12 12 Blood Pressure 143/63 H 127/61 Pulse Oximetry 100 100 Oxygen Delivery Fraction of Inspired Oxygen 30 05/23/25 20:00 05/23/25 20:00 05/23/25 20:00 Temperature Pulse Rate 62 62 Respiratory Rate 12 Blood Pressure Pulse Oximetry 100 Oxygen Delivery Mechanical Ventilation Fraction of Inspired Oxygen 30 05/23/25 20:16 05/23/25 21:00 05/23/25 21:58 Temperature Pulse Rate 65 63 60 Respiratory Rate 13 12 Blood Pressure 139/52 L Pulse Oximetry 98 100 Oxygen Delivery Mechanical Ventilation Fraction of Inspired Oxygen 30 05/23/25 21:58 05/23/25 22:00 05/23/25 22:00 Temperature 98.0 F Pulse Rate 60 60 60 Respiratory Rate 12 13 Blood Pressure 126/53 L Pulse Oximetry 100 Oxygen Delivery Fraction of Inspired Oxygen 05/23/25 23:00 05/23/25 23:21 05/24/25 00:00 Temperature Pulse Rate 64 61 66 Respiratory Rate 12 13 Blood Pressure 131/58 L Pulse Oximetry 100 100 Oxygen Delivery Mechanical Ventilation Fraction of Inspired Oxygen 30 05/24/25 00:00 05/24/25 00:00 05/24/25 00:00 Temperature Pulse Rate 66 Respiratory Rate Blood Pressure Pulse Oximetry 99 Oxygen Delivery Mechanical Ventilation Fraction of Inspired Oxygen 30 30 05/24/25 00:00 05/24/25 01:00 05/24/25 02:00 Temperature 99.0 F Pulse Rate 66 67 67 Respiratory Rate 13 13 Blood Pressure 126/51 L 115/55 L Pulse Oximetry 99 98 99 Oxygen Delivery Mechanical Ventilation Fraction of Inspired Oxygen 30 05/24/25 02:00 05/24/25 02:00 05/24/25 02:00 Temperature 99 F Pulse Rate 67 67 67 Respiratory Rate 13 13 Blood Pressure 131/54 L Pulse Oximetry 99 Oxygen Delivery Fraction of Inspired Oxygen 05/24/25 03:00 05/24/25 04:00 05/24/25 04:00 Temperature 98.7 F Pulse Rate 68 68 70 Respiratory Rate 13 13 13 Blood Pressure 122/51 L 122/53 L Pulse Oximetry 100 100 Oxygen Delivery Fraction of Inspired Oxygen 05/24/25 04:00 05/24/25 04:00 05/24/25 04:00 Temperature Pulse Rate 69 Respiratory Rate Blood Pressure Pulse Oximetry 100 Oxygen Delivery Mechanical Ventilation Fraction of Inspired Oxygen 30 30 05/24/25 05:00 05/24/25 05:29 05/24/25 06:00 Temperature Pulse Rate 67 67 68 Respiratory Rate 12 Blood Pressure 127/59 L Pulse Oximetry 100 100 Oxygen Delivery Mechanical Ventilation Fraction of Inspired Oxygen 30 05/24/25 06:00 05/24/25 06:00 05/24/25 07:00 Temperature Pulse Rate 68 68 71 Respiratory Rate 14 14 12 Blood Pressure 131/60 158/65 H Pulse Oximetry 100 100 Oxygen Delivery Fraction of Inspired Oxygen 05/24/25 07:33 05/24/25 07:42 05/24/25 07:43 Temperature 100.1 F H 98.4 F Pulse Rate 69 Respiratory Rate Blood Pressure Pulse Oximetry 100 Oxygen Delivery Mechanical Ventilation Fraction of Inspired Oxygen 30 05/24/25 07:45 05/24/25 08:00 05/24/25 08:00 Temperature 98.2 F 98.2 F Pulse Rate 69 Respiratory Rate 13 Blood Pressure 126/61 Pulse Oximetry 100 Oxygen Delivery Fraction of Inspired Oxygen 30 05/24/25 08:00 05/24/25 08:00 05/24/25 08:00 Temperature Pulse Rate 69 70 Respiratory Rate 13 Blood Pressure Pulse Oximetry 100 Oxygen Delivery Mechanical Ventilation Fraction of Inspired Oxygen 30 05/24/25 08:30 05/24/25 09:00 05/24/25 09:00 Temperature Pulse Rate 69 69 68 Respiratory Rate 13 13 13 Blood Pressure 127/61 Pulse Oximetry 100 Oxygen Delivery Fraction of Inspired Oxygen 05/24/25 10:00 05/24/25 10:21 Temperature 99.4 F Pulse Rate 65 Respiratory Rate 12 Blood Pressure 136/63 Pulse Oximetry 100 Oxygen Delivery Fraction of Inspired Oxygen Intake/Output Intake/Output: Intake & Output 05/21/25 05/22/25 05/23/25 05/24/25 23:59 23:59 23:59 23:59 Intake Total 50 825.0 1153.1 646.1 Output Total 0 1885 3350 860 Balance 50 -1060.0 -2196.9 -213.9 Meds/Results Medications: Active Medications Generic Name Dose Route Start Last Admin Trade Name Freq PRN Reason Stop Dose Admin Dextrose 12.5 gm 05/22/25 12:40 Dextrose 50% 25 Gm/50 Ml Syringe IV PUSH PRN PRN Hypoglycemia Protocol Folic Acid 1 mg 05/22/25 09:00 05/24/25 09:27 Folic Acid 1 Mg/0.2 Ml Inj IV PUSH 1 mg QAM DARWIN Administration Glucagon 1 mg 05/22/25 12:40 Glucagon For Inj 1 Mg Vial IM PRN PRN Hypoglycemia Protocol Glucose 15 gm 05/22/25 12:40 Glucose Oral Gel 15 Gm Of Glucse In 37.5 Gm Tube PO PRN PRN Hypoglycemia Protocol Hydralazine HCl 10 mg 05/22/25 00:47 05/22/25 04:18 Hydralazine Hcl 20 Mg/Ml Vial IV PUSH 10 mg Q8H PRN Administration Blood Pressure - High Levetiracetam 750 mg/ Dextrose 107.5 mls @ 430 mls/hr 05/22/25 09:00 05/24/25 09:26 IVPB 430 mls/hr Q12HR DARWIN Administration Metronidazole 500 mg in 100 mls @ 100 mls/hr 05/22/25 02:00 05/24/25 06:46 Flagyl 500 Mg/Iso Soln 100 Ml IVPB Infused Q8HR DARWIN Infusion Ceftriaxone Sodium 2 gm/ 100 mls @ 200 mls/hr 05/22/25 21:00 05/23/25 21:07 Sodium Chloride IVPB Infused Q24H DARWIN Infusion Albumin Human 50 mls @ 999 mls/hr 05/22/25 06:20 Albutein IVPB 06/21/25 06:19 Q10M PRN HYPOTENSION Propofol 100 mls @ 0 mls/hr 05/22/25 12:25 05/24/25 09:00 Diprivan IV CONT 0 mcg/kg/min .Q0M DARWIN 0 mls/hr Protocol Titration 0 MCG/KG/MIN Dextrose 1,000 mls @ 100 mls/hr 05/22/25 12:40 Dextrose 5% 1,000 Ml IVPB PRN PRN Hypoglycemia Protocol Insulin Aspart 2 - 5 units 05/22/25 18:00 05/24/25 05:34 Insulin Aspart (*Bkc) 100 Units/Ml SUB-Q Not Given Q6HR DARWIN Protocol Lactulose 40 gm 05/22/25 13:00 05/24/25 09:26 Lactulose 20 Gm/30 Ml Udc FEED TUBE 40 gm TID DARWIN Administration Lidocaine/Prilocaine 1 each 05/22/25 06:26 Lidocaine/Prilocaine Cream 2.5-2.5% Tube TOPICAL WITH DIALYSIS PRN for dialysis Protocol Multi-Ingred Cream/Lotion/Oil/Oint 1 applic 05/22/25 21:00 05/24/25 09:27 Mineral Oil/White Petrolatum Ointment EACH EYE 1 applic Q12HR DARWIN Administration Pantoprazole Sodium 40 mg 05/22/25 09:00 05/24/25 09:27 Pantoprazole Sodium Iv 40 Mg Vial IV PUSH 40 mg Q12HR DARWIN Administration Rifaximin 550 mg 05/22/25 21:00 05/24/25 09:27 Rifaximin 550 Mg Tablet FEED TUBE 550 mg Q12HR DARWIN Administration Thiamine HCl 100 mg 05/22/25 09:00 05/24/25 09:27 Thiamine Hcl 200 Mg/2 Ml Vial IV PUSH 100 mg QAM DARWIN Administration Radiology Results: ITS Impressions Abdomen X-Ray 05/22/25 13:09 IMPRESSION: Adequate placement of gastric catheter. Several loops of gas dilated possibly distended small bowel and distended appearance of the gastric bubble. Query if patient has presentation suggestive of ileus or obstruction. Head CT 05/22/25 14:16 IMPRESSION: 1. No acute intracranial findings. Chest/Abdomen/Pelvis CT 05/22/25 14:19 IMPRESSION: 1. New patchy consolidation and groundglass opacities in the dependent bilateral lower lobes most consistent with aspiration and/or pneumonia. 2. Small left and tiny right pleural effusions. 3. Cardiomegaly. 4. Nodular cirrhotic liver with splenomegaly and markedly enlarged splenorenal collaterals consistent with secondary portal venous hypertension. 5. Small amount of ascites scattered throughout the abdomen and pelvis likely related to liver disease. 6. Bilateral nonobstructing nephrolithiasis. Labs Labs: Laboratory Results - last 24 hr 05/23/25 05/23/25 05/24/25 13:38 17:36 00:39 WBC RBC Hgb Hct MCV MCH MCHC RDW Plt Count MPV % Immature Plt Fraction Puncture Site ABG pH ABG pCO2 ABG pO2 ABG PO2/FiO2 Ratio ABG HCO3 ABG O2 Saturation ABG O2 Content ABG Base Excess A-a Gradient Oxyhemoglobin Carboxyhemoglobin Methemoglobin Reduced Hemoglobin Total Hemoglobin O2 Delivery Device O2 Liters/Min Minute Volume Vent Rate Vent Mode FiO2 Tidal Volume PEEP Peak Inspir Pressure Pressure Support Sodium Potassium Chloride Carbon Dioxide Anion Gap BUN Creatinine Estim Creat Clear Calc Estimated GFR Glucose POC Capillary Glucose 104 117 H 114 H Calcium Phosphorus Magnesium Total Bilirubin AST ALT Alkaline Phosphatase Ammonia Total Protein Albumin Triglycerides 05/24/25 05/24/25 04:14 04:54 WBC 2.8 L RBC 2.55 L Hgb 8.4 L Hct 25.5 L MCV 100.0 MCH 32.9 MCHC 32.9 RDW 15.9 H Plt Count 25 L MPV 10.9 H % Immature Plt Fraction 4.2 Puncture Site Right radial ABG pH 7.514 H* ABG pCO2 37.5 ABG pO2 122.9 H ABG PO2/FiO2 Ratio 4.10 ABG HCO3 29.5 H ABG O2 Saturation 98.7 ABG O2 Content 13.3 L ABG Base Excess 6.2 A-a Gradient 46.9 Oxyhemoglobin 98.0 Carboxyhemoglobin 0.1 Methemoglobin 0.1 Reduced Hemoglobin 1.8 Total Hemoglobin 9.5 L O2 Delivery Device Ventilator O2 Liters/Min Not Reportable Minute Volume Not Reportable Vent Rate 12 Vent Mode Cmv FiO2 30 Tidal Volume 350 PEEP 8 Peak Inspir Pressure Not Reportable Pressure Support Not Reportable Sodium 137 Potassium 3.3 L Chloride 101 Carbon Dioxide 29 Anion Gap 7 BUN 33 H D Creatinine 5.68 H Estim Creat Clear Calc 13 Estimated GFR 10 L Glucose 118 H POC Capillary Glucose Calcium 8.5 Phosphorus 4.0 Magnesium 2.2 Total Bilirubin 1.2 AST 17 ALT 12 Alkaline Phosphatase 106 Ammonia 20 Total Protein 5.9 L Albumin 3.1 L Triglycerides 196 H
[2025-05-24] MEDS: SEVELAMER CARBONATE 800 MG TABLET 1600 MG PO ×2 (11:24→16:38)
[2025-05-24 12:22] LABS: Alveolar/Arterial O2 Gradient 44.3 mmHg; Carboxyhemoglobin 0.1 % THb (0-2.0); Fractional Inspired Oxygen 30 %; HCO3 ABG 28.6 mEq/l (22.0-26.0); Methemoglobin ABG 0.1 %THb (0-1.5); Oxygen Content ABG 13.5 %vol (16.0-22.0); Oxygen Saturation ABG 98.7 % (95.0-100.0); PCO2 ABG 38.4 mmHg (35.0-45.0); PO2 ABG 124.5 mmHg (80.0-100.0); PO2 FiO2 Ratio Arterial Blood 4.15 %; Reduced Hemoglobin 1.7 %THb (0-5.0)
--- NOTE | 2025-05-24 12:22 | P.PNGI_ITS ---
Progress Note: A&P Assessment and Plan (1) Cirrhosis, alcoholic: Qualifiers: Ascites presence: without ascites Qualified Code(s): K70.30 - Alcoholic cirrhosis of liver without ascites Code(s): K70.30 - Alcoholic cirrhosis of liver without ascites Status: Acute Assessment and Plan: here with encephalopathy, also pulmonary edema after missed dialysis required intubation treated with lactulose and xifaxan, icu care he is following commands and stable condition hopefully extubation soon and then diet start diet (2) Encephalopathy, hepatic: Code(s): K72.90 - Hepatic failure, unspecified without coma Status: Acute Assessment and Plan: continue xifaxan and lactulose- titrate to get 3-4 BM/d normalization of ammonia level (3) ESRD needing dialysis: Code(s): N18.6 - End stage renal disease; Z99.2 - Dependence on renal dialysis Status: Chronic Assessment and Plan: by 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 (4) Acute respiratory failure: Code(s): J96.00 - Acute respiratory failure, unspecified whether with hypoxia or hypercapnia Status: Resolved Assessment and Plan: 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 this has improved plan is to extubate (5) Pulmonary edema: Code(s): J81.1 - Chronic pulmonary edema Status: Acute Assessment and Plan: better after dialysis (6) Pancytopenia: Code(s): D61.818 - Other pancytopenia Status: Acute Subjective Date/time seen: 05/24/25 12:22 Interval history: he is following commands, still intubated family at bedside Review of Systems Review of Systems: All systems reviewed & are unremarkable except as noted in HPI and below Exam Narrative: General: Patient is intubated, sedated, is awake, in no acute distress HEENT: Pupils equal and reactive, sclerae is clear, ETT in place Lungs: Bilateral coarse breath sounds, decreased at bases, clear to auscultation in the upper regions, no wheezing Cardiac: RRR. Normal S1 S2. 2/6 murmur in the apex Circulation: Pedal pulses are intact and symmetrical. Feet are warm Abdomen: Decreased bowel sounds. Soft. Nontender, nondistended Extremities: No pedal edema : Patient has a diaper on Neurologic: Intubated, sedated, opens his eyes, nods to questions and follows simple commands in all extremities Objective Data Vital Signs Vital Signs: Vital Signs - 24 hr 05/23/25 13:00 05/23/25 14:00 05/23/25 14:00 Temperature Pulse Rate 60 60 62 Respiratory Rate 12 12 Blood Pressure 126/58 L 142/62 H Pulse Oximetry 100 100 Oxygen Delivery Fraction of Inspired Oxygen 05/23/25 14:12 05/23/25 14:23 05/23/25 15:00 Temperature Pulse Rate 61 63 64 Respiratory Rate 12 12 Blood Pressure 107/55 L Pulse Oximetry 100 99 Oxygen Delivery Mechanical Ventilation Fraction of Inspired Oxygen 30 05/23/25 16:00 05/23/25 16:00 05/23/25 16:00 Temperature 98.5 F Pulse Rate 60 60 Respiratory Rate 12 12 Blood Pressure 110/61 Pulse Oximetry 99 100 Oxygen Delivery Mechanical Ventilation Fraction of Inspired Oxygen 30 05/23/25 16:00 05/23/25 16:00 05/23/25 17:00 Temperature 98.6 F Pulse Rate 63 63 Respiratory Rate 13 Blood Pressure 131/62 Pulse Oximetry 99 Oxygen Delivery Fraction of Inspired Oxygen 30 05/23/25 17:04 05/23/25 18:00 05/23/25 18:00 Temperature 98.6 F Pulse Rate 65 62 63 Respiratory Rate 13 13 Blood Pressure 137/62 Pulse Oximetry 98 100 Oxygen Delivery Mechanical Ventilation Fraction of Inspired Oxygen 30 05/23/25 18:00 05/23/25 19:00 05/23/25 19:48 Temperature Pulse Rate 63 62 Respiratory Rate 12 Blood Pressure 143/63 H Pulse Oximetry 100 Oxygen Delivery Fraction of Inspired Oxygen 30 05/23/25 20:00 05/23/25 20:00 05/23/25 20:00 Temperature 97.5 F L Pulse Rate 62 62 Respiratory Rate 12 12 Blood Pressure 127/61 Pulse Oximetry 100 100 Oxygen Delivery Mechanical Ventilation Fraction of Inspired Oxygen 30 05/23/25 20:00 05/23/25 20:16 05/23/25 21:00 Temperature Pulse Rate 62 65 63 Respiratory Rate 13 Blood Pressure 139/52 L Pulse Oximetry 98 100 Oxygen Delivery Mechanical Ventilation Fraction of Inspired Oxygen 30 05/23/25 21:58 05/23/25 21:58 05/23/25 22:00 Temperature Pulse Rate 60 60 60 Respiratory Rate 12 12 Blood Pressure Pulse Oximetry Oxygen Delivery Fraction of Inspired Oxygen 05/23/25 22:00 05/23/25 23:00 05/23/25 23:21 Temperature 98.0 F Pulse Rate 60 64 61 Respiratory Rate 13 12 Blood Pressure 126/53 L 131/58 L Pulse Oximetry 100 100 100 Oxygen Delivery Mechanical Ventilation Fraction of Inspired Oxygen 30 05/24/25 00:00 05/24/25 00:00 05/24/25 00:00 Temperature Pulse Rate 66 Respiratory Rate 13 Blood Pressure Pulse Oximetry 99 Oxygen Delivery Mechanical Ventilation Fraction of Inspired Oxygen 30 30 05/24/25 00:00 05/24/25 00:00 05/24/25 01:00 Temperature 99.0 F Pulse Rate 66 66 67 Respiratory Rate 13 13 Blood Pressure 126/51 L 115/55 L Pulse Oximetry 99 98 Oxygen Delivery Fraction of Inspired Oxygen 05/24/25 02:00 05/24/25 02:00 05/24/25 02:00 Temperature 99 F Pulse Rate 67 67 67 Respiratory Rate 13 Blood Pressure 131/54 L Pulse Oximetry 99 99 Oxygen Delivery Mechanical Ventilation Fraction of Inspired Oxygen 30 05/24/25 02:00 05/24/25 03:00 05/24/25 04:00 Temperature Pulse Rate 67 68 68 Respiratory Rate 13 13 13 Blood Pressure 122/51 L Pulse Oximetry 100 Oxygen Delivery Fraction of Inspired Oxygen 05/24/25 04:00 05/24/25 04:00 05/24/25 04:00 Temperature 98.7 F Pulse Rate 70 69 Respiratory Rate 13 Blood Pressure 122/53 L Pulse Oximetry 100 Oxygen Delivery Fraction of Inspired Oxygen 30 05/24/25 04:00 05/24/25 05:00 05/24/25 05:29 Temperature Pulse Rate 67 67 Respiratory Rate 12 Blood Pressure 127/59 L Pulse Oximetry 100 100 100 Oxygen Delivery Mechanical Ventilation Mechanical Ventilation Fraction of Inspired Oxygen 30 30 05/24/25 06:00 05/24/25 06:00 05/24/25 06:00 Temperature Pulse Rate 68 68 68 Respiratory Rate 14 14 Blood Pressure 131/60 Pulse Oximetry 100 Oxygen Delivery Fraction of Inspired Oxygen 05/24/25 07:00 05/24/25 07:33 05/24/25 07:42 Temperature 100.1 F H Pulse Rate 71 69 Respiratory Rate 12 Blood Pressure 158/65 H Pulse Oximetry 100 100 Oxygen Delivery Mechanical Ventilation Fraction of Inspired Oxygen 30 05/24/25 07:43 05/24/25 07:45 05/24/25 08:00 Temperature 98.4 F 98.2 F 98.2 F Pulse Rate 69 Respiratory Rate 13 Blood Pressure 126/61 Pulse Oximetry 100 Oxygen Delivery Fraction of Inspired Oxygen 05/24/25 08:00 05/24/25 08:00 05/24/25 08:00 Temperature Pulse Rate 69 Respiratory Rate 13 Blood Pressure Pulse Oximetry 100 Oxygen Delivery Mechanical Ventilation Fraction of Inspired Oxygen 30 30 05/24/25 08:00 05/24/25 08:30 05/24/25 09:00 Temperature Pulse Rate 70 69 69 Respiratory Rate 13 13 Blood Pressure 127/61 Pulse Oximetry 100 Oxygen Delivery Fraction of Inspired Oxygen 05/24/25 09:00 05/24/25 10:00 05/24/25 10:00 Temperature Pulse Rate 68 65 67 Respiratory Rate 13 12 Blood Pressure 136/63 Pulse Oximetry 100 Oxygen Delivery Fraction of Inspired Oxygen 05/24/25 10:00 05/24/25 10:21 05/24/25 11:00 Temperature 99.4 F Pulse Rate 67 70 Respiratory Rate 13 10 L Blood Pressure 147/65 H Pulse Oximetry 100 Oxygen Delivery Fraction of Inspired Oxygen 05/24/25 11:15 05/24/25 11:18 05/24/25 12:00 Temperature 98.3 F Pulse Rate 70 67 67 Respiratory Rate 12 Blood Pressure 141/65 H Pulse Oximetry 100 100 Oxygen Delivery Mechanical Ventilation Fraction of Inspired Oxygen 30 05/24/25 12:00 05/24/25 12:00 Temperature Pulse Rate Respiratory Rate Blood Pressure Pulse Oximetry 100 Oxygen Delivery Mechanical Ventilation Fraction of Inspired Oxygen 30 30 Intake/Output Intake/Output: Intake & Output 05/21/25 05/22/25 05/23/25 05/24/25 23:59 23:59 23:59 23:59 Intake Total 50 825.0 1153.1 646.1 Output Total 0 1885 3350 860 Balance 50 -1060.0 -2196.9 -213.9 Meds/Results Medications: Active Medications Generic Name Dose Route Start Last Admin Trade Name Freq PRN Reason Stop Dose Admin Amlodipine Besylate 5 mg 05/24/25 10:50 05/24/25 11:25 Amlodipine Besylate 5 Mg Tablet PO 5 mg DAILY DARWIN Administration Dextrose 12.5 gm 05/22/25 12:40 Dextrose 50% 25 Gm/50 Ml Syringe IV PUSH PRN PRN Hypoglycemia Protocol Folic Acid 1 mg 05/22/25 09:00 05/24/25 09:27 Folic Acid 1 Mg/0.2 Ml Inj IV PUSH 1 mg QAM DARWIN Administration Glucagon 1 mg 05/22/25 12:40 Glucagon For Inj 1 Mg Vial IM PRN PRN Hypoglycemia Protocol Glucose 15 gm 05/22/25 12:40 Glucose Oral Gel 15 Gm Of Glucse In 37.5 Gm Tube PO PRN PRN Hypoglycemia Protocol Hydralazine HCl 10 mg 05/22/25 00:47 05/22/25 04:18 Hydralazine Hcl 20 Mg/Ml Vial IV PUSH 10 mg Q8H PRN Administration Blood Pressure - High Levetiracetam 750 mg/ Dextrose 107.5 mls @ 430 mls/hr 05/22/25 09:00 05/24/25 09:26 IVPB 430 mls/hr Q12HR DARWIN Administration Metronidazole 500 mg in 100 mls @ 100 mls/hr 05/22/25 02:00 05/24/25 06:46 Flagyl 500 Mg/Iso Soln 100 Ml IVPB Infused Q8HR DARWIN Infusion Ceftriaxone Sodium 2 gm/ 100 mls @ 200 mls/hr 05/22/25 21:00 05/23/25 21:07 Sodium Chloride IVPB Infused Q24H DARWIN Infusion Albumin Human 50 mls @ 999 mls/hr 05/22/25 06:20 Albutein IVPB 06/21/25 06:19 Q10M PRN HYPOTENSION Propofol 100 mls @ 0 mls/hr 05/22/25 12:25 05/24/25 10:00 Diprivan IV CONT 0 mcg/kg/min .Q0M DARWIN 0 mls/hr Protocol Titration 0 MCG/KG/MIN Dextrose 1,000 mls @ 100 mls/hr 05/22/25 12:40 Dextrose 5% 1,000 Ml IVPB PRN PRN Hypoglycemia Protocol Albumin Human 50 mls @ 999 mls/hr 05/24/25 10:47 Albutein IVPB 05/25/25 10:46 Q10M PRN HYPOTENSION Insulin Aspart 2 - 5 units 05/22/25 18:00 05/24/25 12:08 Insulin Aspart (*Bkc) 100 Units/Ml SUB-Q Not Given Q6HR DARWIN Protocol Isosorbide Mononitrate 30 mg 05/25/25 09:00 Isosorbide Mononitrate 30 Mg Tab.Er.24h PO QAM DARWIN Lactulose 40 gm 05/22/25 13:00 05/24/25 12:08 Lactulose 20 Gm/30 Ml Udc FEED TUBE 40 gm TID DARWIN Administration Lidocaine/Prilocaine 1 each 05/22/25 06:26 Lidocaine/Prilocaine Cream 2.5-2.5% Tube TOPICAL WITH DIALYSIS PRN for dialysis Protocol Multi-Ingred Cream/Lotion/Oil/Oint 1 applic 05/22/25 21:00 05/24/25 09:27 Mineral Oil/White Petrolatum Ointment EACH EYE 1 applic Q12HR DARWIN Administration Nadolol 20 mg 05/24/25 11:10 05/24/25 11:18 Nadolol 20 Mg Tablet PO 20 mg QAM DARWIN Administration Pantoprazole Sodium 40 mg 05/22/25 09:00 05/24/25 09:27 Pantoprazole Sodium Iv 40 Mg Vial IV PUSH 40 mg Q12HR DARWIN Administration Rifaximin 550 mg 05/22/25 21:00 05/24/25 09:27 Rifaximin 550 Mg Tablet FEED TUBE 550 mg Q12HR DARWIN Administration Sevelamer Carbonate 1,600 mg 05/24/25 12:00 05/24/25 11:24 Sevelamer Carbonate 800 Mg Tablet PO 1,600 mg TIDWM DARWIN Administration Sevelamer Carbonate 800 mg 05/24/25 11:08 Sevelamer Carbonate 800 Mg Tablet PO PRN PRN WITH SNACKS Thiamine HCl 100 mg 05/22/25 09:00 05/24/25 09:27 Thiamine Hcl 200 Mg/2 Ml Vial IV PUSH 100 mg QAM DARWIN Administration Radiology Results: ITS Impressions Abdomen X-Ray 05/22/25 13:09 IMPRESSION: Adequate placement of gastric catheter. Several loops of gas dilated possibly distended small bowel and distended appearance of the gastric bubble. Query if patient has presentation suggestive of ileus or obstruction. Head CT 05/22/25 14:16 IMPRESSION: 1. No acute intracranial findings. Chest/Abdomen/Pelvis CT 05/22/25 14:19 IMPRESSION: 1. New patchy consolidation and groundglass opacities in the dependent bilateral lower lobes most consistent with aspiration and/or pneumonia. 2. Small left and tiny right pleural effusions. 3. Cardiomegaly. 4. Nodular cirrhotic liver with splenomegaly and markedly enlarged splenorenal collaterals consistent with secondary portal venous hypertension. 5. Small amount of ascites scattered throughout the abdomen and pelvis likely related to liver disease. 6. Bilateral nonobstructing nephrolithiasis. Chest X-Ray 05/24/25 11:59 IMPRESSION: 1. Improving bibasilar airspace disease. Labs Labs: Laboratory Results - last 24 hr 05/23/25 05/23/25 05/24/25 13:38 17:36 00:39 WBC RBC Hgb Hct MCV MCH MCHC RDW Plt Count MPV % Immature Plt Fraction Puncture Site ABG pH ABG pCO2 ABG pO2 ABG PO2/FiO2 Ratio ABG HCO3 ABG O2 Saturation ABG O2 Content ABG Base Excess A-a Gradient Oxyhemoglobin Carboxyhemoglobin Methemoglobin Reduced Hemoglobin Total Hemoglobin O2 Delivery Device O2 Liters/Min Minute Volume Vent Rate Vent Mode FiO2 Tidal Volume PEEP Peak Inspir Pressure Pressure Support Sodium Potassium Chloride Carbon Dioxide Anion Gap BUN Creatinine Estim Creat Clear Calc Estimated GFR Glucose POC Capillary Glucose 104 117 H 114 H Calcium Phosphorus Magnesium Total Bilirubin AST ALT Alkaline Phosphatase Ammonia Total Protein Albumin Triglycerides 05/24/25 05/24/25 05/24/25 04:14 04:54 11:28 WBC 2.8 L RBC 2.55 L Hgb 8.4 L Hct 25.5 L MCV 100.0 MCH 32.9 MCHC 32.9 RDW 15.9 H Plt Count 25 L MPV 10.9 H % Immature Plt Fraction 4.2 Puncture Site Right radial ABG pH 7.514 H* ABG pCO2 37.5 ABG pO2 122.9 H ABG PO2/FiO2 Ratio 4.10 ABG HCO3 29.5 H ABG O2 Saturation 98.7 ABG O2 Content 13.3 L ABG Base Excess 6.2 A-a Gradient 46.9 Oxyhemoglobin 98.0 Carboxyhemoglobin 0.1 Methemoglobin 0.1 Reduced Hemoglobin 1.8 Total Hemoglobin 9.5 L O2 Delivery Device Ventilator O2 Liters/Min Not Reportable Minute Volume Not Reportable Vent Rate 12 Vent Mode Cmv FiO2 30 Tidal Volume 350 PEEP 8 Peak Inspir Pressure Not Reportable Pressure Support Not Reportable Sodium 137 Potassium 3.3 L Chloride 101 Carbon Dioxide 29 Anion Gap 7 BUN 33 H D Creatinine 5.68 H Estim Creat Clear Calc 13 Estimated GFR 10 L Glucose 118 H POC Capillary Glucose 131 H Calcium 8.5 Phosphorus 4.0 Magnesium 2.2 Total Bilirubin 1.2 AST 17 ALT 12 Alkaline Phosphatase 106 Ammonia 20 Total Protein 5.9 L Albumin 3.1 L Triglycerides 196 H
[2025-05-24 12:23] LABS: Modified Allen's Test Pass; Site Drawn RIGHT RADIAL
[2025-05-24 12:25] LABS: Arterial Blood Gas Pressure Support 8 cmH2O
[2025-05-24] MEDS: cefTRIAXone 2 GM in SODIUM CHLORIDE 0.9% IV 100 ML 200 ML IVPB (20:46)
--- NOTE | 2025-05-24 23:12 | PC.NURSE ---
2100 Discussing care plan for the evening and this nurse mentions midnight fingerstick. Pt denies diabetes and requests to not have blood sugar taken. Patient has been eating and drinking today.
[2025-05-25] VITALS (33 sets, daily range): BP systolic 120–150; BP diastolic 60–75; PULSE 62–87; RESP 10–20; TEMP 36.2–37.4; O2SAT 94–100
[2025-05-25 04:03] LABS: Hematocrit 23.2 % (42.0-52.0); Hemoglobin 7.5 g/dL (14.0-18.0); Immature Granulocyte Percent A 0.5 % (0-0.5); Immature Platelet Fraction Pct 4.1 % (0.9-11.2); Lymphocytes Absolute Auto 0.67 K/mm3 (0.9-3.2); Mean Corpuscular HGB Conc 32.3 g/dl (32-36); Mean Corpuscular Hemoglobin 32.3 pg (26-34); Mean Corpuscular Volume 100.0 fl (80-100); Nucleated Red Blood Cells Absolute Auto 0.000 K/mm3 (0.0-0.012); Nucleated Red Blood Cells Perc 0.0 % (0.0-0.2); Red Blood Count 2.32 M/mm3 (4.6-6.20)
[2025-05-25 04:14] LABS: Ammonia 11 umol/L (9-30)
[2025-05-25 04:20] LABS: Alanine Aminotransferase 9 U/L (6-50); Albumin Level 2.9 g/dL (3.5-5.1); Alkaline Phosphatase 134 U/L (38-126); Anion Gap 10 mmol/L (4-12); Aspartate Amino Transferase 15 U/L (17-59); Bilirubin,Total 0.9 mg/dL (0.2-1.3); Blood Urea Nitrogen 42 mg/dL (9-20); Calcium 8.3 mg/dL (8.4-10.2); Carbon Dioxide 27 mmol/L (22-30); Chloride 101 mmol/L (98-107); Estimated CRCL calculation 10 ml/min; Estimated Glomerular Filt Rate 8; Glucose 95 mg/dL (65-110); Magnesium 2.4 mg/dL (1.6-2.3); Potassium 3.2 mmol/L (3.4-5.0); Sodium 138 mmol/L (137-145); Total Protein 5.6 g/dL (6.3-8.2)
[2025-05-25 04:25] LABS: Platelet Count Result 21 k/mm3 (150-375); White Blood Count 1.9 K/mm3 (4.5-10.0)
[2025-05-25] MEDS: metroNIDAZOLE 500 MG/ISO 100ML 500 MG/100 ML BAG 100 MG IVPB ×3 (05:40→21:20)
[2025-05-25] MEDS: SEVELAMER CARBONATE 800 MG TABLET 1600 MG PO ×3 (08:44→17:08)
--- NOTE | 2025-05-25 08:46 | P.PNINT_ITS ---
Progress Note: A&P Assessment and Plan (1) Acute respiratory failure: Code(s): J96.00 - Acute respiratory failure, unspecified whether with hypoxia or hypercapnia Status: Resolved Assessment and Plan: Acute respiratory failure secondary to hepatic encephalopathy and pulmonary edema which is likely secondary to missed hemodialysis session and congestive heart failure Patient emergently transferred to ICU from dialysis center. He was unresponsive, hypoxic in respiratory distress Patient emergently intubated in the ICU and now placed on invasive mechanical ventilation. Large amount of frothy white secretions seen in the oropharynx and through the ET tube at the time of intubation Patient was dialyzed once Management of hepatic encephalopathy as below 05/22: CT chest -New patchy consolidation and ground glass opacities in the dependent bilateral lower lobes most consistent with aspiration and/or pneumonia. 05/23: Continue mechanical ventilation. Decrease tidal volume to 350 and rate to 12. Received dialysis with 3000 mL in fluid removal Continue ceftriaxone a and and Flagyl which should cover for aspiration pneumonia although this appears more of a case of pulmonary edema -05/24: Patient more awake, alert, following commands, ammonia levels are within normal limits PA have asked the bedside RN to discontinue the propofol, chest x-ray improving. Will place patient on SBT once he is more awake and evaluate for extubation 05/24: Extubated successfully 05/25: This morning patient is on 2 L nasal cannula with adequate O2 sats, with no dyspnea, getting dialyzed 05/05/2025: Echocardiogram Summary 1. Complete two-dimensional, color flow and Doppler transthoracic echocardiogram is performed. 2. Left ventricular chamber dimension is normal. 3. Left ventricular systolic function is normal, estimated at 60-65. 4. There is mild concentric increased left ventricular wall thickness. 5. The left ventricular diastolic function is abnormal. 6. E/e' 18 is elevated. 7. Left atrial chamber dimension is moderately enlarged. 8. Right atrial chamber dimension is mildly enlarged. 9. There is moderate aortic valve sclerosis. 10. There is mild aortic valve stenosis with a peak velocity of 313 cm/s, mean gradient of 25 mmHg, and aortic valve area of 1.7 cm2. 11. The mitral valve has a moderately calcified annulus. 12. There is trace mitral valve regurgitation. 13. There is trace tricuspid valve regurgitation. 14. No pulmonary hypertension, estimated pulmonary arterial systolic pressure is 33 mmHg. 15. The aortic root size at the sinus of Valsalva is borderline dilated at 4.1 cm. 16. There is trivial pericardial effusion. (2) Pulmonary edema: Code(s): J81.1 - Chronic pulmonary edema Status: Acute Assessment and Plan: See above (3) Hypertension: Code(s): I10 - Essential (primary) hypertension Status: Chronic Assessment and Plan: Patient now intubated and sedated. Will restart his home antihypertensives (4) Hyperammonemia: Code(s): E72.20 - Disorder of urea cycle metabolism, unspecified Status: Acute Assessment and Plan: Secondary to cirrhosis. 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 He also has esophageal varices. INR 1.5 Management of elevated ammonia as above Patient is currently on antibiotics for SBP prophylaxis and ultrasound-guided paracentesis has been ordered. The radiologist felt the fluid who was too small in amount. Plan to re-evaluate on Sunday. Patient may need platelet transfusion prior to the procedure Appreciate GI evaluation (7) Esophageal varices in alcoholic cirrhosis: Code(s): K70.30 - Alcoholic cirrhosis of liver without ascites; I85.10 - Secondary esophageal varices without bleeding Status: Acute Assessment and Plan: No objective sign of active bleeding IV Protonix (8) Thrombocytopenia: Code(s): D69.6 - Thrombocytopenia, unspecified Status: Acute Assessment and Plan: Secondary to cirrhosis Monitor Transfuse if needed (9) ESRD needing dialysis: Code(s): N18.6 - End stage renal disease; Z99.2 - Dependence on renal dialysis Status: Chronic Assessment and Plan: Patient missed his last 2 dialysis session is currently on volume overload 05/22 Patient received his dialysis this morning which was cut short by 10 minutes 05/23: Dialyzed with 3000 mL in fluid removal Appreciate nephrology following the patient, dialysis per Nephrology team (10) Seizure disorder: Code(s): G40.909 - Epilepsy, unspecified, not intractable, without status epilepticus Status: Acute Assessment and Plan: Continue Bernice Currently on propofol infusion Plan DVT prophylaxis: SCDs, no chemoprophylaxis due to chronic thrombocytopenia Stress ulcer prophylaxis: Protonix Nutrition: Tolerating tube feeds Code Status: Full Code Total Critical Care Time: 31 minutes Discussed with patient and updated with his condition and plan of care, will update family. 05/24: Discussed with patient's brother and [id number] at bedside and updated them with patient's condition plan of care. They stated that he has had previous intubations. I discussed with them that disease sedation is going to be weaned and patient be placed on a spontaneous breathing trial and if he passes he may be extubated. I answered all their questions Due to a high probability of clinically significant, life threatening deterioration, the patient required my highest level of preparedness to intervene emergently and I personally spent this critical care time directly and personally managing the patient. This critical care time included obtaining a history; examining the patient; pulse oximetry; ordering and review of studies; arranging urgent treatment with development of a management plan; evaluation of patient's response to treatment; frequent reassessment; and discussions with other providers. It was exclusive of separately billable procedures and treating other patients and teaching time. Please see Assessment and Plan section and the rest of the note for further information on patient assessment and treatment Subjective Date/time seen: 05/25/25 08:46 Interval history: Reason for consult: Acute respiratory failure, hepatic encephalopathy, pulmonary edema secondary to missed hemodialysis 05/22: Intubated 05/24: Extubated 05/25/2025: Patient seen and examined the ICU, was successfully extubated yesterday, doing well, on 2 L nasal cannula with adequate O2 sats, denies any shortness of breath, chest pain, abdominal pain, nausea vomiting at this time. Has been tolerating diet. Patient being dialyzed as I write this note. Remains pancytopenic, afebrile, hemodynamically stable. Continues to have bowel movements as he is on lactulose. Patient is awake, alert, answers to questions appropriately and follows simple commands Review of Systems Review of Systems: All systems reviewed & are unremarkable except as noted in HPI and below Exam Narrative: General: Pleasant gentleman, awake, alert, in no acute distress HEENT: Pupils equal and reactive, sclerae is clear, Lungs: Coarse breath sounds bilaterally, decreased at bases, clear to ausculta tion in the upper regions, no wheezing Cardiac: RRR. Normal S1 S2. 2/6 murmur in the apex Circulation: Pedal pulses are intact and symmetrical. Feet are warm Abdomen: Decreased bowel sounds. Soft. Nontender, nondistended Extremities: No pedal edema Neurologic: Is awake, alert, oriented, follows simple commands, nonfocal, answers to questions appropriately and moves all extremities spontaneously Psych: Normal mentation after Objective Data Vital Signs Vital Signs: Vital Signs - 24 hr 05/24/25 09:00 05/24/25 09:00 05/24/25 10:00 Temperature Pulse Rate 69 68 65 Respiratory Rate 13 13 12 Blood Pressure 127/61 136/63 Pulse Oximetry 100 100 Oxygen Delivery Oxygen Flow Rate Fraction of Inspired Oxygen 05/24/25 10:00 05/24/25 10:00 05/24/25 10:21 Temperature 99.4 F Pulse Rate 67 67 Respiratory Rate 13 Blood Pressure Pulse Oximetry Oxygen Delivery Oxygen Flow Rate Fraction of Inspired Oxygen 05/24/25 11:00 05/24/25 11:15 05/24/25 11:18 Temperature Pulse Rate 70 70 67 Respiratory Rate 10 L Blood Pressure 147/65 H Pulse Oximetry 100 100 Oxygen Delivery Mechanical Ventilation Oxygen Flow Rate Fraction of Inspired Oxygen 30 05/24/25 12:00 05/24/25 12:00 05/24/25 12:00 Temperature 98.3 F Pulse Rate 67 Respiratory Rate 12 Blood Pressure 141/65 H Pulse Oximetry 100 100 Oxygen Delivery Mechanical Ventilation Oxygen Flow Rate Fraction of Inspired Oxygen 30 30 05/24/25 12:00 05/24/25 12:00 05/24/25 12:43 Temperature Pulse Rate 67 67 66 Respiratory Rate 12 12 Blood Pressure Pulse Oximetry Oxygen Delivery Oxygen Flow Rate Fraction of Inspired Oxygen 05/24/25 12:48 05/24/25 12:53 05/24/25 12:54 Temperature Pulse Rate 75 69 Respiratory Rate 20 15 18 Blood Pressure 140/66 Pulse Oximetry 96 94 96 Oxygen Delivery Nasal Cannula Nasal Cannula Oxygen Flow Rate 2 2 Fraction of Inspired Oxygen 05/24/25 12:59 05/24/25 13:00 05/24/25 13:45 Temperature 97.6 F Pulse Rate 70 72 Respiratory Rate 10 L 20 Blood Pressure 146/63 H Pulse Oximetry 100 98 Oxygen Delivery Nasal Cannula Oxygen Flow Rate 2 Fraction of Inspired Oxygen 05/24/25 13:45 05/24/25 14:00 05/24/25 14:00 Temperature 98.9 F 98.9 F Pulse Rate 70 64 Respiratory Rate 17 Blood Pressure 141/95 H Pulse Oximetry 99 Oxygen Delivery Oxygen Flow Rate Fraction of Inspired Oxygen 05/24/25 15:00 05/24/25 16:00 05/24/25 16:00 Temperature 98.4 F Pulse Rate 71 66 66 Respiratory Rate 10 L 12 Blood Pressure 136/63 142/64 H Pulse Oximetry 98 99 Oxygen Delivery Oxygen Flow Rate Fraction of Inspired Oxygen 05/24/25 16:00 05/24/25 17:00 05/24/25 17:30 Temperature 97.5 F L Pulse Rate 67 64 Respiratory Rate 15 20 Blood Pressure 142/61 H Pulse Oximetry 100 100 100 Oxygen Delivery Room Air Room Air Oxygen Flow Rate Fraction of Inspired Oxygen 05/24/25 18:00 05/24/25 18:00 05/24/25 18:35 Temperature 96.9 F L Pulse Rate 69 71 72 Respiratory Rate 15 24 H Blood Pressure 154/75 H 142/70 H Pulse Oximetry 100 Oxygen Delivery Oxygen Flow Rate Fraction of Inspired Oxygen 05/24/25 19:00 05/24/25 20:00 05/24/25 20:00 Temperature 98.1 F Pulse Rate 68 68 69 Respiratory Rate 10 L 14 Blood Pressure 149/62 H 131/64 Pulse Oximetry 98 Oxygen Delivery Oxygen Flow Rate Fraction of Inspired Oxygen 05/24/25 20:30 05/24/25 21:00 05/24/25 22:00 Temperature Pulse Rate 71 73 Respiratory Rate 12 Blood Pressure 133/66 Pulse Oximetry 98 99 Oxygen Delivery Room Air Oxygen Flow Rate Fraction of Inspired Oxygen 05/24/25 22:00 05/24/25 23:00 05/25/25 00:00 Temperature Pulse Rate 73 67 Respiratory Rate 12 14 Blood Pressure 131/62 130/67 Pulse Oximetry 98 99 96 Oxygen Delivery Room Air Oxygen Flow Rate Fraction of Inspired Oxygen 05/25/25 00:00 05/25/25 00:00 05/25/25 01:00 Temperature 97.2 F L Pulse Rate 68 64 65 Respiratory Rate 14 13 Blood Pressure 125/63 128/62 Pulse Oximetry 96 98 Oxygen Delivery Oxygen Flow Rate Fraction of Inspired Oxygen 05/25/25 02:00 05/25/25 03:00 05/25/25 04:00 Temperature 98.1 F Pulse Rate 68 69 68 Respiratory Rate 14 12 12 Blood Pressure 135/66 139/69 142/63 H Pulse Oximetry 97 97 96 Oxygen Delivery Oxygen Flow Rate Fraction of Inspired Oxygen 05/25/25 04:00 05/25/25 04:00 05/25/25 05:00 Temperature Pulse Rate 67 67 Respiratory Rate 13 Blood Pressure 131/60 Pulse Oximetry 95 98 Oxygen Delivery Room Air Oxygen Flow Rate Fraction of Inspired Oxygen 05/25/25 06:00 05/25/25 06:00 05/25/25 07:00 Temperature Pulse Rate 63 63 66 Respiratory Rate 12 12 Blood Pressure 141/60 H 140/62 Pulse Oximetry 98 99 Oxygen Delivery Oxygen Flow Rate Fraction of Inspired Oxygen 05/25/25 08:00 05/25/25 08:00 05/25/25 08:19 Temperature 98.2 F 98 F Pulse Rate 63 65 62 Respiratory Rate 12 14 Blood Pressure 138/62 138/62 142/65 H Pulse Oximetry 98 100 Oxygen Delivery Oxygen Flow Rate Fraction of Inspired Oxygen 05/25/25 08:30 05/25/25 08:45 Temperature Pulse Rate 62 70 Respiratory Rate Blood Pressure 146/66 H 150/71 H Pulse Oximetry Oxygen Delivery Oxygen Flow Rate Fraction of Inspired Oxygen Intake/Output Intake/Output: Intake & Output 05/22/25 05/23/25 05/24/25 05/25/25 23:59 23:59 23:59 23:59 Intake Total 825.0 1153.1 2111.1 500 Output Total 1885 3350 2210 200 Balance -1060.0 -2196.9 -98.9 300 Meds/Results Medications: Active Medications Generic Name Dose Route Start Last Admin Trade Name Freq PRN Reason Stop Dose Admin Amlodipine Besylate 5 mg 05/24/25 10:50 05/24/25 11:25 Amlodipine Besylate 5 Mg Tablet PO 5 mg DAILY DARWIN Administration Dextrose 12.5 gm 05/22/25 12:40 Dextrose 50% 25 Gm/50 Ml Syringe IV PUSH PRN PRN Hypoglycemia Protocol Folic Acid 1 mg 05/22/25 09:00 05/24/25 09:27 Folic Acid 1 Mg/0.2 Ml Inj IV PUSH 1 mg QAM DARWIN Administration Glucagon 1 mg 05/22/25 12:40 Glucagon For Inj 1 Mg Vial IM PRN PRN Hypoglycemia Protocol Glucose 15 gm 05/22/25 12:40 Glucose Oral Gel 15 Gm Of Glucse In 37.5 Gm Tube PO PRN PRN Hypoglycemia Protocol Hydralazine HCl 10 mg 05/22/25 00:47 05/22/25 04:18 Hydralazine Hcl 20 Mg/Ml Vial IV PUSH 10 mg Q8H PRN Administration Blood Pressure - High Levetiracetam 750 mg/ Dextrose 107.5 mls @ 430 mls/hr 05/22/25 09:00 05/24/25 23:14 IVPB Infused Q12HR DARWIN Infusion Metronidazole 500 mg in 100 mls @ 100 mls/hr 05/22/25 02:00 05/25/25 05:40 Flagyl 500 Mg/Iso Soln 100 Ml IVPB 100 mls/hr Q8HR DARWIN Administration Ceftriaxone Sodium 2 gm/ 100 mls @ 200 mls/hr 05/22/25 21:00 05/24/25 23:14 Sodium Chloride IVPB Infused Q24H DARWIN Infusion Dextrose 1,000 mls @ 100 mls/hr 05/22/25 12:40 Dextrose 5% 1,000 Ml IVPB PRN PRN Hypoglycemia Protocol Albumin Human 50 mls @ 999 mls/hr 05/24/25 10:47 Albutein IVPB 05/25/25 10:46 Q10M PRN HYPOTENSION Isosorbide Mononitrate 30 mg 05/25/25 09:00 Isosorbide Mononitrate 30 Mg Tab.Er.24h PO QAM DARWIN Lactulose 40 gm 05/22/25 13:00 05/24/25 16:38 Lactulose 20 Gm/30 Ml Udc FEED TUBE 40 gm TID DARWIN Administration Lidocaine/Prilocaine 1 each 05/22/25 06:26 Lidocaine/Prilocaine Cream 2.5-2.5% Tube TOPICAL WITH DIALYSIS PRN for dialysis Protocol Nadolol 20 mg 05/24/25 11:10 05/24/25 11:18 Nadolol 20 Mg Tablet PO 20 mg QAM DARWIN Administration Pantoprazole Sodium 40 mg 05/22/25 09:00 05/24/25 20:42 Pantoprazole Sodium Iv 40 Mg Vial IV PUSH 40 mg Q12HR DARWIN Administration Rifaximin 550 mg 05/22/25 21:00 05/24/25 20:46 Rifaximin 550 Mg Tablet FEED TUBE 550 mg Q12HR DARWIN Administration Sevelamer Carbonate 1,600 mg 05/24/25 12:00 05/25/25 08:44 Sevelamer Carbonate 800 Mg Tablet PO 1,600 mg TIDWM DARWIN Administration Sevelamer Carbonate 800 mg 05/24/25 11:08 Sevelamer Carbonate 800 Mg Tablet PO PRN PRN WITH SNACKS Thiamine HCl 100 mg 05/22/25 09:00 05/24/25 09:27 Thiamine Hcl 200 Mg/2 Ml Vial IV PUSH 100 mg QAM DARWIN Administration Radiology Results: ITS Impressions Abdomen X-Ray 05/22/25 13:09 IMPRESSION: Adequate placement of gastric catheter. Several loops of gas dilated possibly distended small bowel and distended appearance of the gastric bubble. Query if patient has presentation suggestive of ileus or obstruction. Head CT 05/22/25 14:16 IMPRESSION: 1. No acute intracranial findings. Chest/Abdomen/Pelvis CT 05/22/25 14:19 IMPRESSION: 1. New patchy consolidation and groundglass opacities in the dependent bilateral lower lobes most consistent with aspiration and/or pneumonia. 2. Small left and tiny right pleural effusions. 3. Cardiomegaly. 4. Nodular cirrhotic liver with splenomegaly and markedly enlarged splenorenal collaterals consistent with secondary portal venous hypertension. 5. Small amount of ascites scattered throughout the abdomen and pelvis likely related to liver disease. 6. Bilateral nonobstructing nephrolithiasis. Chest X-Ray 05/25/25 07:03 Impression: 1: Developing mild interstitial edema. Labs Labs: Laboratory Results - last 24 hr 05/24/25 05/24/25 05/24/25 11:28 12:20 17:16 WBC RBC Hgb Hct MCV MCH MCHC RDW Plt Count MPV Immature Gran % (Auto) Neut % (Auto) Lymph % (Auto) [place] % (Auto) Eos % (Auto) Baso % (Auto) Lymph # (Auto) [place] # (Auto) Eos # (Auto) Baso # (Auto) Abs Immat Gran (auto) Absolute Neuts (auto) Absolute Nucleated RBC Nucleated RBC % % Immature Plt Fraction Puncture Site Right radial ABG pH 7.490 H ABG pCO2 38.4 ABG pO2 124.5 H ABG PO2/FiO2 Ratio 4.15 ABG HCO3 28.6 H ABG O2 Saturation 98.7 ABG O2 Content 13.5 L ABG Base Excess 5.0 A-a Gradient 44.3 Oxyhemoglobin 98.1 Carboxyhemoglobin 0.1 Methemoglobin 0.1 Reduced Hemoglobin 1.7 Total Hemoglobin 9.6 L O2 Delivery Device Ventilator O2 Liters/Min Not Reportable Minute Volume Not Reportable Vent Rate Not Reportable Vent Mode Spontaneous FiO2 30 Tidal Volume Not Reportable PEEP 5 Peak Inspir Pressure Not Reportable Pressure Support 8 Sodium Potassium Chloride Carbon Dioxide Anion Gap BUN Creatinine Estim Creat Clear Calc Estimated GFR Glucose POC Capillary Glucose 131 H 146 H Calcium Phosphorus Magnesium Total Bilirubin AST ALT Alkaline Phosphatase Ammonia Total Protein Albumin 05/25/25 03:47 WBC 1.9 L* RBC 2.32 L Hgb 7.5 L Hct 23.2 L MCV 100.0 MCH 32.3 MCHC 32.3 RDW 15.5 H Plt Count 21 L* MPV 10.3 Immature Gran % (Auto) 0.5 Neut % (Auto) 51.3 Lymph % (Auto) 34.7 [place] % (Auto) 7.3 Eos % (Auto) 5.2 H Baso % (Auto) 1.0 Lymph # (Auto) 0.67 L [place] # (Auto) 0.1 Eos # (Auto) 0.1 Baso # (Auto) 0.0 Abs Immat Gran (auto) 0.01 Absolute Neuts (auto) 1.0 L Absolute Nucleated RBC 0.000 Nucleated RBC % 0.0 % Immature Plt Fraction 4.1 Puncture Site ABG pH ABG pCO2 ABG pO2 ABG PO2/FiO2 Ratio ABG HCO3 ABG O2 Saturation ABG O2 Content ABG Base Excess A-a Gradient Oxyhemoglobin Carboxyhemoglobin Methemoglobin Reduced Hemoglobin Total Hemoglobin O2 Delivery Device O2 Liters/Min Minute Volume Vent Rate Vent Mode FiO2 Tidal Volume PEEP Peak Inspir Pressure Pressure Support Sodium 138 Potassium 3.2 L Chloride 101 Carbon Dioxide 27 Anion Gap 10 BUN 42 H Creatinine 7.31 H Estim Creat Clear Calc 10 Estimated GFR 8 L Glucose 95 POC Capillary Glucose Calcium 8.3 L Phosphorus 3.9 Magnesium 2.4 H Total Bilirubin 0.9 AST 15 L ALT 9 Alkaline Phosphatase 134 H Ammonia 11 Total Protein 5.6 L Albumin 2.9 L Quality VTE Prophylaxis VTE prophylaxis: mechanical ordered
--- NOTE | 2025-05-25 09:53 | P.PNNP_ITS ---
Progress Note: A&P Assessment and Plan (1) End stage renal disease: Code(s): N18.6 - End stage renal disease Status: Chronic Assessment and Plan: * HD underway * volume status looks okay. * Removing some fluid * Electrolytes and BUN are doing well. (2) Altered mental status: Qualifiers: Altered mental status type: unspecified Qualified Code(s): R41.82 - Altered mental status, unspecified Code(s): R41.82 - Altered mental status, unspecified Status: Acute Assessment and Plan: * Resolved (3) Hyperkalemia: Code(s): E87.5 - Hyperkalemia Status: Acute Assessment and Plan: * due missed dialysis treatments * resolved (4) Cirrhosis: Code(s): K74.60 - Unspecified cirrhosis of liver Status: Acute Assessment and Plan: * known history * has been sober for the last 2 - 3 years * ammonia level was extremely high on admission * continue lactulose enemas * Consider oral lactulose now that he is extubated * Would rifaximin be a reasonable alternative to lactulose. 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 And when he does the bowel habits it produces can sometimes be an issue with his job and with dialysis. So balancing all those things is difficult. May be rifaximin might be something more effective in the long run. * GI recommendations noted * empiric antibiotics for possible SBP * paracentesis planned (5) Hypertension: Code(s): I10 - Essential (primary) hypertension Status: Chronic Assessment and Plan: * systolic looks better. Ranging from 130s to 150s. * He as an outpatient he gets amlodipine. * Will restart this tomorrow (6) Anemia: Code(s): D64.9 - Anemia, unspecified Status: Chronic Assessment and Plan: * due to ESRD with contributions from liver disease * On Epogen with HD * Check a CBC tomorrow (7) Pancytopenia: Code(s): D61.818 - Other pancytopenia Status: Acute Assessment and Plan: * somewhat of a chronic issue * thought to be secondary to liver disease/increased reticuloendothelial activity * anemia further complicated by ESRD * Hold off on heparin because of the low platelet count (8) Seizure disorder: Code(s): G40.909 - Epilepsy, unspecified, not intractable, without status epilepticus Status: Acute Assessment and Plan: * known history of seizure disorder * no seizures in several years * on IV Keppra (given NPO status) * no evidence of seizure activity at this time Subjective Date/time seen: 05/25/25 09:53 Interval history: Patient is extubated now. Mental status is at his baseline. He is on dialysis and tolerating it well. He was seen at 9:05 a.m. Exam Narrative: WDWN in NAD on a ventilator in the ICU. A little bit more responsive tod skin no rash head ncat lungs clear bilaterally cor reg no rub or gallop abd BS+ nontender and soft ext no edema Objective Data Vital Signs Vital Signs: Vital Signs - 24 hr 05/24/25 10:00 05/24/25 10:00 05/24/25 10:00 Temperature Pulse Rate 65 67 67 Respiratory Rate 12 13 Blood Pressure 136/63 Pulse Oximetry 100 Oxygen Delivery Oxygen Flow Rate Fraction of Inspired Oxygen 05/24/25 10:21 05/24/25 11:00 05/24/25 11:15 Temperature 99.4 F Pulse Rate 70 70 Respiratory Rate 10 L Blood Pressure 147/65 H Pulse Oximetry 100 100 Oxygen Delivery Mechanical Ventilation Oxygen Flow Rate Fraction of Inspired Oxygen 30 05/24/25 11:18 05/24/25 12:00 05/24/25 12:00 Temperature 98.3 F Pulse Rate 67 67 Respiratory Rate 12 Blood Pressure 141/65 H Pulse Oximetry 100 100 Oxygen Delivery Mechanical Ventilation Oxygen Flow Rate Fraction of Inspired Oxygen 30 05/24/25 12:00 05/24/25 12:00 05/24/25 12:00 Temperature Pulse Rate 67 67 Respiratory Rate 12 Blood Pressure Pulse Oximetry Oxygen Delivery Oxygen Flow Rate Fraction of Inspired Oxygen 30 05/24/25 12:43 05/24/25 12:48 05/24/25 12:53 Temperature Pulse Rate 66 75 69 Respiratory Rate 12 20 15 Blood Pressure 140/66 Pulse Oximetry 96 94 Oxygen Delivery Nasal Cannula Oxygen Flow Rate 2 Fraction of Inspired Oxygen 05/24/25 12:54 05/24/25 12:59 05/24/25 13:00 Temperature 97.6 F Pulse Rate 70 Respiratory Rate 18 10 L Blood Pressure 146/63 H Pulse Oximetry 96 100 Oxygen Delivery Nasal Cannula Oxygen Flow Rate 2 Fraction of Inspired Oxygen 05/24/25 13:45 05/24/25 13:45 05/24/25 14:00 Temperature 98.9 F 98.9 F Pulse Rate 72 70 Respiratory Rate 20 17 Blood Pressure 141/95 H Pulse Oximetry 98 99 Oxygen Delivery Nasal Cannula Oxygen Flow Rate 2 Fraction of Inspired Oxygen 05/24/25 14:00 05/24/25 15:00 05/24/25 16:00 Temperature 98.4 F Pulse Rate 64 71 66 Respiratory Rate 10 L 12 Blood Pressure 136/63 142/64 H Pulse Oximetry 98 99 Oxygen Delivery Oxygen Flow Rate Fraction of Inspired Oxygen 05/24/25 16:00 05/24/25 16:00 05/24/25 17:00 Temperature 97.5 F L Pulse Rate 66 67 Respiratory Rate 15 Blood Pressure 142/61 H Pulse Oximetry 100 100 Oxygen Delivery Room Air Oxygen Flow Rate Fraction of Inspired Oxygen 05/24/25 17:30 05/24/25 18:00 05/24/25 18:00 Temperature Pulse Rate 64 69 71 Respiratory Rate 20 15 Blood Pressure 154/75 H Pulse Oximetry 100 100 Oxygen Delivery Room Air Oxygen Flow Rate Fraction of Inspired Oxygen 05/24/25 18:35 05/24/25 19:00 05/24/25 20:00 Temperature 96.9 F L Pulse Rate 72 68 68 Respiratory Rate 24 H 10 L Blood Pressure 142/70 H 149/62 H Pulse Oximetry Oxygen Delivery Oxygen Flow Rate Fraction of Inspired Oxygen 05/24/25 20:00 05/24/25 20:30 05/24/25 21:00 Temperature 98.1 F Pulse Rate 69 71 Respiratory Rate 14 12 Blood Pressure 131/64 133/66 Pulse Oximetry 98 98 99 Oxygen Delivery Room Air Oxygen Flow Rate Fraction of Inspired Oxygen 05/24/25 22:00 05/24/25 22:00 05/24/25 23:00 Temperature Pulse Rate 73 73 67 Respiratory Rate 12 14 Blood Pressure 131/62 130/67 Pulse Oximetry 98 99 Oxygen Delivery Oxygen Flow Rate Fraction of Inspired Oxygen 05/25/25 00:00 05/25/25 00:00 05/25/25 00:00 Temperature 97.2 F L Pulse Rate 68 64 Respiratory Rate 14 Blood Pressure 125/63 Pulse Oximetry 96 96 Oxygen Delivery Room Air Oxygen Flow Rate Fraction of Inspired Oxygen 05/25/25 01:00 05/25/25 02:00 05/25/25 03:00 Temperature Pulse Rate 65 68 69 Respiratory Rate 13 14 12 Blood Pressure 128/62 135/66 139/69 Pulse Oximetry 98 97 97 Oxygen Delivery Oxygen Flow Rate Fraction of Inspired Oxygen 05/25/25 04:00 05/25/25 04:00 05/25/25 04:00 Temperature 98.1 F Pulse Rate 68 67 Respiratory Rate 12 Blood Pressure 142/63 H Pulse Oximetry 96 95 Oxygen Delivery Room Air Oxygen Flow Rate Fraction of Inspired Oxygen 05/25/25 05:00 05/25/25 06:00 05/25/25 06:00 Temperature Pulse Rate 67 63 63 Respiratory Rate 13 12 Blood Pressure 131/60 141/60 H Pulse Oximetry 98 98 Oxygen Delivery Oxygen Flow Rate Fraction of Inspired Oxygen 05/25/25 07:00 05/25/25 08:00 05/25/25 08:00 Temperature 98.2 F 98 F Pulse Rate 66 63 65 Respiratory Rate 12 12 14 Blood Pressure 140/62 138/62 138/62 Pulse Oximetry 99 98 100 Oxygen Delivery Oxygen Flow Rate Fraction of Inspired Oxygen 05/25/25 08:00 05/25/25 08:19 05/25/25 08:30 Temperature Pulse Rate 62 62 Respiratory Rate Blood Pressure 142/65 H 146/66 H Pulse Oximetry 99 Oxygen Delivery Room Air Oxygen Flow Rate Fraction of Inspired Oxygen 05/25/25 08:45 05/25/25 09:00 05/25/25 09:00 Temperature Pulse Rate 70 68 66 Respiratory Rate 12 Blood Pressure 150/71 H 147/68 H 147/68 H Pulse Oximetry 99 Oxygen Delivery Oxygen Flow Rate Fraction of Inspired Oxygen 05/25/25 09:15 05/25/25 09:30 05/25/25 09:45 Temperature Pulse Rate 71 70 74 Respiratory Rate Blood Pressure 149/71 H 144/67 H 148/69 H Pulse Oximetry Oxygen Delivery Oxygen Flow Rate Fraction of Inspired Oxygen Intake/Output Intake/Output: Intake & Output 05/22/25 05/23/25 05/24/25 05/25/25 23:59 23:59 23:59 23:59 Intake Total 825.0 1153.1 2111.1 1000 Output Total 1885 3350 2210 200 Balance -1060.0 -2196.9 -98.9 800 Meds/Results Medications: Active Medications Generic Name Dose Route Start Last Admin Trade Name Freq PRN Reason Stop Dose Admin Amlodipine Besylate 5 mg 05/24/25 10:50 05/24/25 11:25 Amlodipine Besylate 5 Mg Tablet PO 5 mg DAILY DARWIN Administration Dextrose 12.5 gm 05/22/25 12:40 Dextrose 50% 25 Gm/50 Ml Syringe IV PUSH PRN PRN Hypoglycemia Protocol Folic Acid 1 mg 05/22/25 09:00 05/24/25 09:27 Folic Acid 1 Mg/0.2 Ml Inj IV PUSH 1 mg QAM DARWIN Administration Glucagon 1 mg 05/22/25 12:40 Glucagon For Inj 1 Mg Vial IM PRN PRN Hypoglycemia Protocol Glucose 15 gm 05/22/25 12:40 Glucose Oral Gel 15 Gm Of Glucse In 37.5 Gm Tube PO PRN PRN Hypoglycemia Protocol Hydralazine HCl 10 mg 05/22/25 00:47 05/22/25 04:18 Hydralazine Hcl 20 Mg/Ml Vial IV PUSH 10 mg Q8H PRN Administration Blood Pressure - High Levetiracetam 750 mg/ Dextrose 107.5 mls @ 430 mls/hr 05/22/25 09:00 05/24/25 23:14 IVPB Infused Q12HR DARWIN Infusion Metronidazole 500 mg in 100 mls @ 100 mls/hr 05/22/25 02:00 05/25/25 05:40 Flagyl 500 Mg/Iso Soln 100 Ml IVPB 100 mls/hr Q8HR DARWIN Administration Ceftriaxone Sodium 2 gm/ 100 mls @ 200 mls/hr 05/22/25 21:00 05/24/25 23:14 Sodium Chloride IVPB Infused Q24H DARWIN Infusion Dextrose 1,000 mls @ 100 mls/hr 05/22/25 12:40 Dextrose 5% 1,000 Ml IVPB PRN PRN Hypoglycemia Protocol Albumin Human 50 mls @ 999 mls/hr 05/24/25 10:47 Albutein IVPB 05/25/25 10:46 Q10M PRN HYPOTENSION Isosorbide Mononitrate 30 mg 05/25/25 09:00 Isosorbide Mononitrate 30 Mg Tab.Er.24h PO QAM DARWIN Lactulose 40 gm 05/22/25 13:00 05/24/25 16:38 Lactulose 20 Gm/30 Ml Udc FEED TUBE 40 gm TID DARWIN Administration Lidocaine/Prilocaine 1 each 05/22/25 06:26 Lidocaine/Prilocaine Cream 2.5-2.5% Tube TOPICAL WITH DIALYSIS PRN for dialysis Protocol Nadolol 20 mg 05/24/25 11:10 05/24/25 11:18 Nadolol 20 Mg Tablet PO 20 mg QAM DARWIN Administration Ondansetron HCl 4 mg 05/25/25 08:46 Ondansetron Inj 4 Mg/2 Ml Vial IV PUSH Q6H PRN Nausea And Vomiting Pantoprazole Sodium 40 mg 05/22/25 09:00 05/24/25 20:42 Pantoprazole Sodium Iv 40 Mg Vial IV PUSH 40 mg Q12HR DARWIN Administration Rifaximin 550 mg 05/22/25 21:00 05/24/25 20:46 Rifaximin 550 Mg Tablet FEED TUBE 550 mg Q12HR DARWIN Administration Sevelamer Carbonate 1,600 mg 05/24/25 12:00 05/25/25 08:44 Sevelamer Carbonate 800 Mg Tablet PO 1,600 mg TIDWM DARWIN Administration Sevelamer Carbonate 800 mg 05/24/25 11:08 Sevelamer Carbonate 800 Mg Tablet PO PRN PRN WITH SNACKS Thiamine HCl 100 mg 05/22/25 09:00 05/24/25 09:27 Thiamine Hcl 200 Mg/2 Ml Vial IV PUSH 100 mg QAM DARWIN Administration Radiology Results: ITS Impressions Abdomen X-Ray 05/22/25 13:09 IMPRESSION: Adequate placement of gastric catheter. Several loops of gas dilated possibly distended small bowel and distended appearance of the gastric bubble. Query if patient has presentation suggestive of ileus or obstruction. Head CT 05/22/25 14:16 IMPRESSION: 1. No acute intracranial findings. Chest/Abdomen/Pelvis CT 05/22/25 14:19 IMPRESSION: 1. New patchy consolidation and groundglass opacities in the dependent bilateral lower lobes most consistent with aspiration and/or pneumonia. 2. Small left and tiny right pleural effusions. 3. Cardiomegaly. 4. Nodular cirrhotic liver with splenomegaly and markedly enlarged splenorenal collaterals consistent with secondary portal venous hypertension. 5. Small amount of ascites scattered throughout the abdomen and pelvis likely related to liver disease. 6. Bilateral nonobstructing nephrolithiasis. Chest X-Ray 05/25/25 07:03 Impression: 1: Developing mild interstitial edema. Labs Labs: Laboratory Results - last 24 hr 05/24/25 05/24/25 05/24/25 11:28 12:20 17:16 WBC RBC Hgb Hct MCV MCH MCHC RDW Plt Count MPV Immature Gran % (Auto) Neut % (Auto) Lymph % (Auto) [place] % (Auto) Eos % (Auto) Baso % (Auto) Lymph # (Auto) [place] # (Auto) Eos # (Auto) Baso # (Auto) Abs Immat Gran (auto) Absolute Neuts (auto) Absolute Nucleated RBC Nucleated RBC % % Immature Plt Fraction Puncture Site Right radial ABG pH 7.490 H ABG pCO2 38.4 ABG pO2 124.5 H ABG PO2/FiO2 Ratio 4.15 ABG HCO3 28.6 H ABG O2 Saturation 98.7 ABG O2 Content 13.5 L ABG Base Excess 5.0 A-a Gradient 44.3 Oxyhemoglobin 98.1 Carboxyhemoglobin 0.1 Methemoglobin 0.1 Reduced Hemoglobin 1.7 Total Hemoglobin 9.6 L O2 Delivery Device Ventilator O2 Liters/Min Not Reportable Minute Volume Not Reportable Vent Rate Not Reportable Vent Mode Spontaneous FiO2 30 Tidal Volume Not Reportable PEEP 5 Peak Inspir Pressure Not Reportable Pressure Support 8 Sodium Potassium Chloride Carbon Dioxide Anion Gap BUN Creatinine Estim Creat Clear Calc Estimated GFR Glucose POC Capillary Glucose 131 H 146 H Calcium Phosphorus Magnesium Total Bilirubin AST ALT Alkaline Phosphatase Ammonia Total Protein Albumin 05/25/25 03:47 WBC 1.9 L* RBC 2.32 L Hgb 7.5 L Hct 23.2 L MCV 100.0 MCH 32.3 MCHC 32.3 RDW 15.5 H Plt Count 21 L* MPV 10.3 Immature Gran % (Auto) 0.5 Neut % (Auto) 51.3 Lymph % (Auto) 34.7 [place] % (Auto) 7.3 Eos % (Auto) 5.2 H Baso % (Auto) 1.0 Lymph # (Auto) 0.67 L [place] # (Auto) 0.1 Eos # (Auto) 0.1 Baso # (Auto) 0.0 Abs Immat Gran (auto) 0.01 Absolute Neuts (auto) 1.0 L Absolute Nucleated RBC 0.000 Nucleated RBC % 0.0 % Immature Plt Fraction 4.1 Puncture Site ABG pH ABG pCO2 ABG pO2 ABG PO2/FiO2 Ratio ABG HCO3 ABG O2 Saturation ABG O2 Content ABG Base Excess A-a Gradient Oxyhemoglobin Carboxyhemoglobin Methemoglobin Reduced Hemoglobin Total Hemoglobin O2 Delivery Device O2 Liters/Min Minute Volume Vent Rate Vent Mode FiO2 Tidal Volume PEEP Peak Inspir Pressure Pressure Support Sodium 138 Potassium 3.2 L Chloride 101 Carbon Dioxide 27 Anion Gap 10 BUN 42 H Creatinine 7.31 H Estim Creat Clear Calc 10 Estimated GFR 8 L Glucose 95 POC Capillary Glucose Calcium 8.3 L Phosphorus 3.9 Magnesium 2.4 H Total Bilirubin 0.9 AST 15 L ALT 9 Alkaline Phosphatase 134 H Ammonia 11 Total Protein 5.6 L Albumin 2.9 L
[2025-05-25] MEDS: EPOETIN ALFA-EPBX 20,000 UNITS/ML VIAL 20000 UNITS IV PUSH (10:54)
--- NOTE | 2025-05-25 11:04 | PCFNICU ---
ICU Rounding Note: Pt current nutrition is Renal diet. Nutrition recommendation: No new recommendations. Continue renal diet. Agree with orders Last recorded weight is 65.2 kg. Bowel Motility: No BMs yet Labs Reviewed: Hgb 7.5, Hct 23.3, Alb 2.9, K+ 3.2, BUN 42, Cre 7.31 Meds Noted: Folic acid, thiamine, protonix, lactulose, renvela, Zofran Skin: No skin issues Additional Notes: Pt was extubated and diet advanced to renal. Eating 80%. Will continue to round for need for supplements. Seen on previous admissions. Continue to monitor Following daily in ICU rounds. .
[2025-05-25] MEDS: FOLIC ACID 1 MG/0.2 ML INJ IV PUSH (12:47)
[2025-05-25] MEDS: ISOSORBIDE MONONITRATE 30 MG TAB.ER.24H PO (12:47)
[2025-05-25] MEDS: LACTULOSE 20 GM/30 ML UDC 40 GM FEED TUBE (12:48)
[2025-05-25] MEDS: THIAMINE HCL 200 MG/2 ML VIAL 100 MG IV PUSH (12:48)
[2025-05-25] MEDS: PANTOPRAZOLE SODIUM IV 40 MG VIAL IV PUSH (12:48)
[2025-05-25] MEDS: LACTULOSE 20 GM/30 ML UDC 40 GM BY MOUTH (17:08)
--- NOTE | 2025-05-25 18:17 | PC.NURSE ---
This patient, Jj Cuello, was received from ICU 8 on 05/25/25 at 1817. Patient/family oriented to unit policies and routines. Report per Stacie HASKINS
--- NOTE | 2025-05-25 18:18 | PC.NURSE ---
This patient, Jj Cuello, was transferred to [[facility]] on 05/25/25 at 1818. Personal belongings sent with patient. Report given to [Aleena HASKINS]. Appropriate documentation sent with patient.
[2025-05-25] MEDS: cefTRIAXone 2 GM in SODIUM CHLORIDE 0.9% IV 100 ML 200 ML IVPB (20:09)
[2025-05-25] MEDS: PANTOPRAZOLE 40 MG TABLET PO (20:10)
[2025-05-25] MEDS: levETIRAcetam Tablet 250 MG, levETIRAcetam Tablet 500 MG 750 MG PO (20:10)
[2025-05-26] VITALS (22 sets, daily range): BP systolic 103–172; BP diastolic 55–92; PULSE 64–84; RESP 16–20; TEMP 36.6–38.1; O2SAT 99–100
[2025-05-26 06:03] LABS: Ammonia < 9 umol/L (9-30)
[2025-05-26 06:18] LABS: Hematocrit 23.1 % (42.0-52.0); Hemoglobin 7.4 g/dL (14.0-18.0); Immature Granulocyte Percent A 0.0 % (0-0.5); Immature Platelet Fraction Pct 7.2 % (0.9-11.2); Lymphocytes Absolute Auto 0.50 K/mm3 (0.9-3.2); Mean Corpuscular HGB Conc 32.0 g/dl (32-36); Mean Corpuscular Hemoglobin 33.0 pg (26-34); Mean Corpuscular Volume 103.1 fl (80-100); Nucleated Red Blood Cells Absolute Auto 0.000 K/mm3 (0.0-0.012); Nucleated Red Blood Cells Perc 0.0 % (0.0-0.2); Red Blood Count 2.24 M/mm3 (4.6-6.20)
[2025-05-26 06:37] LABS: Alanine Aminotransferase 10 U/L (6-50); Albumin Level 2.9 g/dL (3.5-5.1); Alkaline Phosphatase 104 U/L (38-126); Anion Gap 6 mmol/L (4-12); Aspartate Amino Transferase 19 U/L (17-59); Bilirubin,Total 1.0 mg/dL (0.2-1.3); Blood Urea Nitrogen 20 mg/dL (9-20); Calcium 8.1 mg/dL (8.4-10.2); Carbon Dioxide 34 mmol/L (22-30); Chloride 98 mmol/L (98-107); Estimated CRCL calculation 15 ml/min; Estimated Glomerular Filt Rate 13; Glucose 97 mg/dL (65-110); Magnesium 2.3 mg/dL (1.6-2.3); Potassium 3.1 mmol/L (3.4-5.0); Sodium 138 mmol/L (137-145); Total Protein 5.5 g/dL (6.3-8.2)
[2025-05-26] MEDS: metroNIDAZOLE 500 MG/ISO 100ML 500 MG/100 ML BAG 100 MG IVPB ×3 (06:51→21:22)
[2025-05-26 07:00] LABS: Platelet Count Result 22 k/mm3 (150-375); White Blood Count 1.7 K/mm3 (4.5-10.0)
[2025-05-26] MEDS: levETIRAcetam Tablet 250 MG, levETIRAcetam Tablet 500 MG 750 MG PO ×2 (08:28→20:36)
[2025-05-26] MEDS: THIAMINE HCL 100 MG TABLET PO (08:28)
[2025-05-26] MEDS: FOLIC ACID 1 MG TABLET PO (08:28)
[2025-05-26] MEDS: SEVELAMER CARBONATE 800 MG TABLET 1600 MG PO ×4 (08:28→17:55)
[2025-05-26] MEDS: ISOSORBIDE MONONITRATE 30 MG TAB.ER.24H PO (08:29)
[2025-05-26] MEDS: PANTOPRAZOLE 40 MG TABLET PO ×2 (08:29→20:36)
--- NOTE | 2025-05-26 11:17 | P.PNNP_ITS ---
Progress Note: A&P Assessment and Plan (1) End stage renal disease: Code(s): N18.6 - End stage renal disease Status: Chronic Assessment and Plan: * HD getting started now. * volume status looks okay. * Removing some fluid * Electrolytes and BUN are doing well. * Discharge okay from the renal standpoint whenever everyone else is ready. * I talked with Oscar yesterday about the patient. He wants to know if there is some service which can go into his home and make sure he takes his medication and get him back and forth to dialysis. I told him that this sounds like a private service was would be expensive. But there might be some help through insurance. I asked him to talk with nursing about getting case management to see him to help with this. He also asked if deviated dialysis could call him or Ministerio if the patient calls and does not want to come to dialysis or reschedule just so they can check in on him to be sure he is doing okay. This discussion took about 20minutes. I also talked with Corey Han about his request and they will talk with staff and try to come up with a solution. I also talked with Jj today that Oscar and I had talked yesterday. The patient says that he is thinking of retiring which would ease a lot of his complex medical care. (2) Altered mental status: Qualifiers: Altered mental status type: unspecified Qualified Code(s): R41.82 - Altered mental status, unspecified Code(s): R41.82 - Altered mental status, unspecified Status: Acute Assessment and Plan: * Resolved (3) Hyperkalemia: Code(s): E87.5 - Hyperkalemia Status: Acute Assessment and Plan: * due to missed dialysis treatments * resolved (4) Cirrhosis: Code(s): K74.60 - Unspecified cirrhosis of liver Status: Acute Assessment and Plan: * known history * has been sober for the last 2 - 3 years * ammonia level was extremely high on admission * continue lactulose enemas * Consider oral lactulose now that he is extubated * Would rifaximin be a reasonable alternative to lactulose. 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 And when he does the bowel habits it produces can sometimes be an issue with his job and with dialysis. So balancing all those things is difficult. May be rifaximin might be something more effective in the long run. * GI recommendations noted * empiric antibiotics for possible SBP * paracentesis planned (5) Hypertension: Code(s): I10 - Essential (primary) hypertension Status: Chronic Assessment and Plan: * systolic looks better. Ranging from 110s to 130s lately * Back on amlodipine (6) Anemia: Code(s): D64.9 - Anemia, unspecified Status: Chronic Assessment and Plan: * due to ESRD with contributions from liver disease * On Epogen with HD * Check a CBC tomorrow (7) Pancytopenia: Code(s): D61.818 - Other pancytopenia Status: Acute Assessment and Plan: * somewhat of a chronic issue * thought to be secondary to liver disease/increased reticuloendothelial activity * anemia further complicated by ESRD * Hold off on heparin because of the low platelet count (8) Seizure disorder: Code(s): G40.909 - Epilepsy, unspecified, not intractable, without status epilepticus Status: Acute Assessment and Plan: * known history of seizure disorder * no seizures in several years * on IV Keppra (given NPO status) * no evidence of seizure activity at this time Subjective Date/time seen: 05/26/25 11:17 Interval history: The patient is in the dialysis room and is about to start dialysis. He feels okay. Mental status is at his baseline Exam Narrative: WDWN in NAD on a ventilator in the ICU. A little bit more responsive tod skin no rash head ncat lungs clear bilaterally cor reg no rub or gallop abd BS+ nontender and soft ext no edema Objective Data Vital Signs Vital Signs: Vital Signs - 24 hr 05/25/25 11:30 05/25/25 11:45 05/25/25 11:51 Temperature Pulse Rate 72 75 77 Respiratory Rate Blood Pressure 142/72 H 133/66 133/65 Pulse Oximetry Oxygen Delivery 05/25/25 12:00 05/25/25 12:00 05/25/25 12:00 Temperature 98.4 F 98.4 F Pulse Rate 72 71 Respiratory Rate 15 16 Blood Pressure 124/63 124/63 Pulse Oximetry 94 95 99 Oxygen Delivery Room Air 05/25/25 12:00 05/25/25 12:48 05/25/25 13:00 Temperature Pulse Rate 71 73 75 Respiratory Rate 12 Blood Pressure 131/60 Pulse Oximetry 98 Oxygen Delivery 05/25/25 14:00 05/25/25 14:00 05/25/25 16:00 Temperature 98.3 F 98.4 F Pulse Rate 70 69 63 Respiratory Rate 10 L 18 Blood Pressure 136/65 130/60 Pulse Oximetry 99 98 Oxygen Delivery 05/25/25 20:00 05/25/25 22:16 05/26/25 06:35 Temperature 99.3 F 100.5 F H Pulse Rate 87 64 Respiratory Rate 20 18 Blood Pressure 120/64 120/59 L Pulse Oximetry 98 99 Oxygen Delivery Room Air 05/26/25 08:27 05/26/25 08:29 05/26/25 08:58 Temperature 97.8 F Pulse Rate 84 68 Respiratory Rate 16 Blood Pressure 141/66 H Pulse Oximetry 100 Oxygen Delivery Room Air 05/26/25 09:12 05/26/25 09:15 05/26/25 09:30 Temperature Pulse Rate 68 68 68 Respiratory Rate Blood Pressure 136/65 132/63 119/62 Pulse Oximetry Oxygen Delivery 05/26/25 09:45 05/26/25 10:00 05/26/25 10:15 Temperature Pulse Rate 68 65 65 Respiratory Rate Blood Pressure 121/58 L 121/55 L 131/64 Pulse Oximetry Oxygen Delivery 05/26/25 10:30 Temperature Pulse Rate 66 Respiratory Rate Blood Pressure 132/92 H Pulse Oximetry Oxygen Delivery Intake/Output Intake/Output: Intake & Output 05/23/25 05/24/25 05/25/25 05/26/25 23:59 23:59 23:59 23:59 Intake Total 1153.1 2111.1 1780 318 Output Total 3350 2210 2200 [facility]2196.9 -98.9 -420 318 Meds/Results Medications: Active Medications Generic Name Dose Route Start Last Admin Trade Name Freq PRN Reason Stop Dose Admin Amlodipine Besylate 5 mg 05/24/25 10:50 05/26/25 08:27 Amlodipine Besylate 5 Mg Tablet PO 5 mg DAILY DARWIN Administration Dextrose 12.5 gm 05/22/25 12:40 Dextrose 50% 25 Gm/50 Ml Syringe IV PUSH PRN PRN Hypoglycemia Protocol Epoetin Nasir 20,000 units 05/26/25 13:00 Epoetin Nasir 20,000 Units/Ml Vial IV PUSH 05/26/25 13:01 ONCE ONE Folic Acid 1 mg 05/26/25 09:00 05/26/25 08:28 Folic Acid 1 Mg Tablet PO 1 mg DAILY DARWIN Administration Glucagon 1 mg 05/22/25 12:40 Glucagon For Inj 1 Mg Vial IM PRN PRN Hypoglycemia Protocol Glucose 15 gm 05/22/25 12:40 Glucose Oral Gel 15 Gm Of Glucse In 37.5 Gm Tube PO PRN PRN Hypoglycemia Protocol Hydralazine HCl 10 mg 05/22/25 00:47 05/22/25 04:18 Hydralazine Hcl 20 Mg/Ml Vial IV PUSH 10 mg Q8H PRN Administration Blood Pressure - High Metronidazole 500 mg in 100 mls @ 100 mls/hr 05/22/25 02:00 05/26/25 06:51 Flagyl 500 Mg/Iso Soln 100 Ml IVPB 100 mls/hr Q8HR DARWIN Administration Ceftriaxone Sodium 2 gm/ 100 mls @ 200 mls/hr 05/22/25 21:00 05/25/25 20:09 Sodium Chloride IVPB 200 mls/hr Q24H DARWIN Administration Dextrose 1,000 mls @ 100 mls/hr 05/22/25 12:40 Dextrose 5% 1,000 Ml IVPB PRN PRN Hypoglycemia Protocol Albumin Human 50 mls @ 999 mls/hr 05/26/25 08:20 Albutein IVPB 05/27/25 08:19 Q10M PRN HYPOTENSION Isosorbide Mononitrate 30 mg 05/25/25 09:00 05/26/25 08:29 Isosorbide Mononitrate 30 Mg Tab.Er.24h PO 30 mg QAM DARWIN Administration Lactulose 40 gm 05/25/25 17:00 05/25/25 17:08 Lactulose 20 Gm/30 Ml Udc BY MOUTH 40 gm TID DARWIN Administration Levetiracetam 250 mg/ 750 mg 05/25/25 21:00 05/26/25 08:28 Levetiracetam 500 mg PO 750 mg Q12HR DARWIN Administration Lidocaine/Prilocaine 1 each 05/22/25 06:26 Lidocaine/Prilocaine Cream 2.5-2.5% Tube TOPICAL WITH DIALYSIS PRN for dialysis Protocol Nadolol 20 mg 05/24/25 11:10 05/26/25 08:27 Nadolol 20 Mg Tablet PO 20 mg QAM DARWIN Administration Ondansetron HCl 4 mg 05/25/25 08:46 Ondansetron Inj 4 Mg/2 Ml Vial IV PUSH Q6H PRN Nausea And Vomiting Pantoprazole Sodium 40 mg 05/25/25 21:00 05/26/25 08:29 Pantoprazole 40 Mg Tablet PO 40 mg Q12HR DARWIN Administration Rifaximin 550 mg 05/25/25 21:00 05/26/25 08:28 Rifaximin 550 Mg Tablet BY MOUTH 550 mg Q12HR DARWIN Administration Sevelamer Carbonate 1,600 mg 05/24/25 12:00 05/26/25 08:28 Sevelamer Carbonate 800 Mg Tablet PO 1,600 mg TIDWM DARWIN Administration Sevelamer Carbonate 800 mg 05/24/25 11:08 Sevelamer Carbonate 800 Mg Tablet PO PRN PRN WITH SNACKS Thiamine HCl 100 mg 05/26/25 09:00 05/26/25 08:28 Thiamine Hcl 100 Mg Tablet PO 100 mg QAM DARWIN Administration Radiology Results: ITS Impressions Abdomen X-Ray 05/22/25 13:09 IMPRESSION: Adequate placement of gastric catheter. Several loops of gas dilated possibly distended small bowel and distended appearance of the gastric bubble. Query if patient has presentation suggestive of ileus or obstruction. Head CT 05/22/25 14:16 IMPRESSION: 1. No acute intracranial findings. Chest/Abdomen/Pelvis CT 05/22/25 14:19 IMPRESSION: 1. New patchy consolidation and groundglass opacities in the dependent bilateral lower lobes most consistent with aspiration and/or pneumonia. 2. Small left and tiny right pleural effusions. 3. Cardiomegaly. 4. Nodular cirrhotic liver with splenomegaly and markedly enlarged splenorenal collaterals consistent with secondary portal venous hypertension. 5. Small amount of ascites scattered throughout the abdomen and pelvis likely related to liver disease. 6. Bilateral nonobstructing nephrolithiasis. Chest X-Ray 05/25/25 07:03 Impression: 1: Developing mild interstitial edema. Labs Labs: Laboratory Results - last 24 hr 05/25/25 05/26/25 20:57 05:47 WBC 1.7 L* RBC 2.24 L Hgb 7.4 L Hct 23.1 L MCV 103.1 H MCH 33.0 MCHC 32.0 RDW 15.2 H Plt Count 22 L* MPV 11.4 H Immature Gran % (Auto) 0.0 Neut % (Auto) 57.6 Lymph % (Auto) 30.3 [place] % (Auto) 7.9 Eos % (Auto) 3.6 Baso % (Auto) 0.6 Lymph # (Auto) 0.50 L [place] # (Auto) 0.1 Eos # (Auto) 0.1 Baso # (Auto) 0.0 Abs Immat Gran (auto) 0.00 Absolute Neuts (auto) 1.0 L Absolute Nucleated RBC 0.000 Nucleated RBC % 0.0 % Immature Plt Fraction 7.2 Sodium 138 Potassium 3.1 L Chloride 98 Carbon Dioxide 34 H Anion Gap 6 BUN 20 D Creatinine 4.69 H Estim Creat Clear Calc 15 Estimated GFR 13 L Glucose 97 POC Capillary Glucose 127 H Calcium 8.1 L Phosphorus 2.8 Magnesium 2.3 Total Bilirubin 1.0 AST 19 ALT 10 Alkaline Phosphatase 104 Ammonia < 9 L Total Protein 5.5 L Albumin 2.9 L
--- NOTE | 2025-05-26 11:27 | PM.IMPN ---
Progress Note: A&P Assessment and Plan (1) Acute respiratory failure: Code(s): J96.00 - Acute respiratory failure, unspecified whether with hypoxia or hypercapnia Status: Resolved Assessment and Plan: Acute respiratory failure secondary to hepatic encephalopathy and pulmonary edema which is likely secondary to missed hemodialysis session and/or CHF with a component of aspiration PNA. Patient was unresponsive and hypoxic in respiratory distress and was emergently transferred to ICU from dialysis center. He was emergently intubated in the ICU and placed on invasive mechanical ventilation. Large amount of frothy white secretions seen in the oropharynx and through the ET tube at the time of intubation. unresponsive, hypoxic in respiratory distress CT chest (05/22) showing a new patchy consolidation and ground glass opacities in the dependent bilateral lower lobes most consistent with aspiration and/or pneumonia. Patient also with hepatic encephalopathy treated as below. He underwent HD with 3L removed. Started on IV abx. Mental status improved. Patient more awake and alert and able to be extubated successfully 05/24 Weaned to room air now. (2) Encephalopathy, hepatic: Code(s): K72.90 - Hepatic failure, unspecified without coma Status: Acute Assessment and Plan: Head CT 05/21 and 05/22 were unremarkable for acute change. ABG did not show hypercarbia. Elevated ammonia to 167. Secondary to cirrhosis. Gastric tube in placed and rifaximin and lactulose started Ammonia has normalized. Patient more awake, alert Back to baseline. Follow. Continue rifaximin and lactulose (3) Pneumonia: Code(s): J18.9 - Pneumonia, unspecified organism Status: Acute Assessment and Plan: Initial CT chest (05/21) showing no acute pulmonary lesions but repeat CT chest with contrast showing new patchy consolidation and ground glass opacities in the dependent bilateral lower lobes Started on Rocephin (05/21) and Flagyl (05/22) No BCx drawn MRSA nasal swab negative Had low grade fever this morning. Leukopenic with WBC 1700 (ANC 980). Continue IV abx for today. (4) Hyperammonemia: Code(s): E72.20 - Disorder of urea cycle metabolism, unspecified Status: Acute Assessment and Plan: As above (5) Pulmonary edema: Code(s): J81.1 - Chronic pulmonary edema Status: Acute Assessment and Plan: Echo 05/05/25 showing normal LV systolic function with EF 60-65%, abnormal diastolic dysfunction, enlarged atria, mild valvular disease. As above. (6) Hypertension: Code(s): I10 - Essential (primary) hypertension Status: Chronic Assessment and Plan: Patient's blood pressure was reviewed on 05/26 Blood pressure remains well controlled. 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 He also has esophageal varices. INR 1.5. Ammonia level elevated Management of elevated ammonia as above Patient is currently on antibiotics for SBP prophylaxis and ultrasound-guided paracentesis was ordered but radiologist felt the fluid who was too small in amount. Plan to re-evaluate on Sunday. Patient may need platelet transfusion prior to the procedure Appreciate GI evaluation (8) Esophageal varices in alcoholic cirrhosis: Code(s): K70.30 - Alcoholic cirrhosis of liver without ascites; I85.10 - Secondary esophageal varices without bleeding Status: Acute Assessment and Plan: No objective sign of active bleeding Continue Protonix (9) Pancytopenia: Code(s): D61.818 - Other pancytopenia Status: Acute Assessment and Plan: Secondary to cirrhosis. WBC down to 1700. Could be consumptive from PNA Platelet at 22K related to cirrhosis and sequestration from splenomegaly Hgb 9.3 on admission but down to 7 range but still drifting down related to anemia of chronic disease and ESRD Monitor. Transfuse if needed (10) ESRD needing dialysis: Code(s): N18.6 - End stage renal disease; Z99.2 - Dependence on renal dialysis Status: Chronic Assessment and Plan: Patient with ESRD on HD Patient missed his last 2 dialysis session is presents with volume overload Patient received HD 05/22, 05/23 and 05/25. Receiving HD again today Appreciate nephrology following the patient, dialysis per Nephrology team (11) Seizure disorder: Code(s): G40.909 - Epilepsy, unspecified, not intractable, without status epilepticus Status: Acute Assessment and Plan: Stable. Continue Keppra Plan DVT prophylaxis - SCDs Code Status: Full Code Subjective Date/time seen: 05/26/25 11:27 Interval history: 59yo male patient who has liver failure and ESRD on dialysis Sunday here after missing 2 dialysis treatments and found to have altered mental status Assuming care. Chart reviewed. Patient slept poorly last night. No chest pain or shortness of breath. Continues to have bowel movements that are loose. No mani diarrhea. He does not feel confused. Some nausea last night but this has resolved. He is eating normally now. Exam Narrative: Tm 100.5 97.8 132/92 66 16 100% Gen - NARD lying semi recumbent in bed currently undergoing dialysis Chest -lungs are clear anteriorly. CV - RRR S1/S2 with a 2 in 6 systolic murmur heard throughout the precordium and up into the upper chest Abd -soft. Nontender. Nondistended. Positive bowel sounds Ext - No pedal edema. 2+ DP pulses bilaterally. Left upper extremity fistula is currently accessed Neuro - Alert and oriented x4. Nonfocal exam. Psych - Nml mood and affect Skin - Warm and dry Objective Data Vital Signs Vital Signs: Vital Signs - 24 hr 05/25/25 11:30 05/25/25 11:45 05/25/25 11:51 Temperature Pulse Rate 72 75 77 Respiratory Rate Blood Pressure 142/72 H 133/66 133/65 Pulse Oximetry Oxygen Delivery 05/25/25 12:00 05/25/25 12:00 05/25/25 12:00 Temperature 98.4 F 98.4 F Pulse Rate 72 71 Respiratory Rate 15 16 Blood Pressure 124/63 124/63 Pulse Oximetry 94 95 99 Oxygen Delivery Room Air 05/25/25 12:00 05/25/25 12:48 05/25/25 13:00 Temperature Pulse Rate 71 73 75 Respiratory Rate 12 Blood Pressure 131/60 Pulse Oximetry 98 Oxygen Delivery 05/25/25 14:00 05/25/25 14:00 05/25/25 16:00 Temperature 98.3 F 98.4 F Pulse Rate 70 69 63 Respiratory Rate 10 L 18 Blood Pressure 136/65 130/60 Pulse Oximetry 99 98 Oxygen Delivery 05/25/25 20:00 05/25/25 22:16 05/26/25 06:35 Temperature 99.3 F 100.5 F H Pulse Rate 87 64 Respiratory Rate 20 18 Blood Pressure 120/64 120/59 L Pulse Oximetry 98 99 Oxygen Delivery Room Air 05/26/25 08:27 05/26/25 08:29 05/26/25 08:58 Temperature 97.8 F Pulse Rate 84 68 Respiratory Rate 16 Blood Pressure 141/66 H Pulse Oximetry 100 Oxygen Delivery Room Air 05/26/25 09:12 05/26/25 09:15 05/26/25 09:30 Temperature Pulse Rate 68 68 68 Respiratory Rate Blood Pressure 136/65 132/63 119/62 Pulse Oximetry Oxygen Delivery 05/26/25 09:45 05/26/25 10:00 05/26/25 10:15 Temperature Pulse Rate 68 65 65 Respiratory Rate Blood Pressure 121/58 L 121/55 L 131/64 Pulse Oximetry Oxygen Delivery 05/26/25 10:30 Temperature Pulse Rate 66 Respiratory Rate Blood Pressure 132/92 H Pulse Oximetry Oxygen Delivery Intake/Output Intake/Output: Intake & Output 05/23/25 05/24/25 05/25/25 05/26/25 23:59 23:59 23:59 23:59 Intake Total 1153.1 2111.1 1780 318 Output Total 3350 2210 2200 Balance -2196.9 -98.9 -420 318 Meds/Results Medications: Active Medications Generic Name Dose Route Start Last Admin Trade Name Freq PRN Reason Stop Dose Admin Amlodipine Besylate 5 mg 05/24/25 10:50 05/26/25 08:27 Amlodipine Besylate 5 Mg Tablet PO 5 mg DAILY DARWIN Administration Dextrose 12.5 gm 05/22/25 12:40 Dextrose 50% 25 Gm/50 Ml Syringe IV PUSH PRN PRN Hypoglycemia Protocol Epoetin Nasir 20,000 units 05/26/25 13:00 Epoetin Nasir 20,000 Units/Ml Vial IV PUSH 05/26/25 13:01 ONCE ONE Folic Acid 1 mg 05/26/25 09:00 05/26/25 08:28 Folic Acid 1 Mg Tablet PO 1 mg DAILY DARWIN Administration Glucagon 1 mg 05/22/25 12:40 Glucagon For Inj 1 Mg Vial IM PRN PRN Hypoglycemia Protocol Glucose 15 gm 05/22/25 12:40 Glucose Oral Gel 15 Gm Of Glucse In 37.5 Gm Tube PO PRN PRN Hypoglycemia Protocol Hydralazine HCl 10 mg 05/22/25 00:47 05/22/25 04:18 Hydralazine Hcl 20 Mg/Ml Vial IV PUSH 10 mg Q8H PRN Administration Blood Pressure - High Metronidazole 500 mg in 100 mls @ 100 mls/hr 05/22/25 02:00 05/26/25 06:51 Flagyl 500 Mg/Iso Soln 100 Ml IVPB 100 mls/hr Q8HR DARWIN Administration Ceftriaxone Sodium 2 gm/ 100 mls @ 200 mls/hr 05/22/25 21:00 05/25/25 20:09 Sodium Chloride IVPB 200 mls/hr Q24H DARWIN Administration Dextrose 1,000 mls @ 100 mls/hr 05/22/25 12:40 Dextrose 5% 1,000 Ml IVPB PRN PRN Hypoglycemia Protocol Albumin Human 50 mls @ 999 mls/hr 05/26/25 08:20 Albutein IVPB 05/27/25 08:19 Q10M PRN HYPOTENSION Isosorbide Mononitrate 30 mg 05/25/25 09:00 05/26/25 08:29 Isosorbide Mononitrate 30 Mg Tab.Er.24h PO 30 mg QAM DARWIN Administration Lactulose 40 gm 05/25/25 17:00 05/25/25 17:08 Lactulose 20 Gm/30 Ml Udc BY MOUTH 40 gm TID DARWIN Administration Levetiracetam 250 mg/ 750 mg 05/25/25 21:00 05/26/25 08:28 Levetiracetam 500 mg PO 750 mg Q12HR DARWIN Administration Lidocaine/Prilocaine 1 each 05/22/25 06:26 Lidocaine/Prilocaine Cream 2.5-2.5% Tube TOPICAL WITH DIALYSIS PRN for dialysis Protocol Nadolol 20 mg 05/24/25 11:10 05/26/25 08:27 Nadolol 20 Mg Tablet PO 20 mg QAM DARWIN Administration Ondansetron HCl 4 mg 05/25/25 08:46 Ondansetron Inj 4 Mg/2 Ml Vial IV PUSH Q6H PRN Nausea And Vomiting Pantoprazole Sodium 40 mg 05/25/25 21:00 05/26/25 08:29 Pantoprazole 40 Mg Tablet PO 40 mg Q12HR DARWIN Administration Rifaximin 550 mg 05/25/25 21:00 05/26/25 08:28 Rifaximin 550 Mg Tablet BY MOUTH 550 mg Q12HR DARWIN Administration Sevelamer Carbonate 1,600 mg 05/24/25 12:00 05/26/25 08:28 Sevelamer Carbonate 800 Mg Tablet PO 1,600 mg TIDWM DARWIN Administration Sevelamer Carbonate 800 mg 05/24/25 11:08 Sevelamer Carbonate 800 Mg Tablet PO PRN PRN WITH SNACKS Thiamine HCl 100 mg 05/26/25 09:00 05/26/25 08:28 Thiamine Hcl 100 Mg Tablet PO 100 mg QAM DARWIN Administration Radiology Results: ITS Impressions Abdomen X-Ray 05/22/25 13:09 IMPRESSION: Adequate placement of gastric catheter. Several loops of gas dilated possibly distended small bowel and distended appearance of the gastric bubble. Query if patient has presentation suggestive of ileus or obstruction. Head CT 05/22/25 14:16 IMPRESSION: 1. No acute intracranial findings. Chest/Abdomen/Pelvis CT 05/22/25 14:19 IMPRESSION: 1. New patchy consolidation and groundglass opacities in the dependent bilateral lower lobes most consistent with aspiration and/or pneumonia. 2. Small left and tiny right pleural effusions. 3. Cardiomegaly. 4. Nodular cirrhotic liver with splenomegaly and markedly enlarged splenorenal collaterals consistent with secondary portal venous hypertension. 5. Small amount of ascites scattered throughout the abdomen and pelvis likely related to liver disease. 6. Bilateral nonobstructing nephrolithiasis. Chest X-Ray 05/25/25 07:03 Impression: 1: Developing mild interstitial edema. Labs Labs: Laboratory Results - last 24 hr 05/25/25 05/26/25 20:57 05:47 WBC 1.7 L* RBC 2.24 L Hgb 7.4 L Hct 23.1 L MCV 103.1 H MCH 33.0 MCHC 32.0 RDW 15.2 H Plt Count 22 L* MPV 11.4 H Immature Gran % (Auto) 0.0 Neut % (Auto) 57.6 Lymph % (Auto) 30.3 [place] % (Auto) 7.9 Eos % (Auto) 3.6 Baso % (Auto) 0.6 Lymph # (Auto) 0.50 L [place] # (Auto) 0.1 Eos # (Auto) 0.1 Baso # (Auto) 0.0 Abs Immat Gran (auto) 0.00 Absolute Neuts (auto) 1.0 L Absolute Nucleated RBC 0.000 Nucleated RBC % 0.0 % Immature Plt Fraction 7.2 Sodium 138 Potassium 3.1 L Chloride 98 Carbon Dioxide 34 H Anion Gap 6 BUN 20 D Creatinine 4.69 H Estim Creat Clear Calc 15 Estimated GFR 13 L Glucose 97 POC Capillary Glucose 127 H Calcium 8.1 L Phosphorus 2.8 Magnesium 2.3 Total Bilirubin 1.0 AST 19 ALT 10 Alkaline Phosphatase 104 Ammonia < 9 L Total Protein 5.5 L Albumin 2.9 L
[2025-05-26] MEDS: EPOETIN ALFA 20,000 UNITS/ML VIAL 20000 UNITS IV PUSH (11:53)
[2025-05-26] MEDS: LACTULOSE 20 GM/30 ML UDC 40 GM BY MOUTH ×3 (13:30→17:55)
--- NOTE | 2025-05-26 14:23 | PCOTNOTE ---
Received OT evaluation orders. Per PT, pt is I with his crutches and has no OT needs. Spoke with pt who reports the same and declines need for OT evaluation. Will d/c the OT order.
[2025-05-26] MEDS: cefTRIAXone 2 GM in SODIUM CHLORIDE 0.9% IV 100 ML 200 ML IVPB (20:35)
[2025-05-26] MEDS: MELATONIN 5 MG TABLET PO (21:38)
[2025-05-27 00:07] LABS: Phosphatidylethanol (PEth) Negative (.)
[2025-05-27 05:26] LABS: Hematocrit 24.7 % (42.0-52.0); Hemoglobin 7.9 g/dL (14.0-18.0); Immature Granulocyte Percent A 0.6 % (0-0.5); Immature Platelet Fraction Pct 7.0 % (0.9-11.2); Lymphocytes Absolute Auto 0.54 K/mm3 (0.9-3.2); Mean Corpuscular HGB Conc 32.0 g/dl (32-36); Mean Corpuscular Hemoglobin 32.8 pg (26-34); Mean Corpuscular Volume 102.5 fl (80-100); Nucleated Red Blood Cells Absolute Auto 0.000 K/mm3 (0.0-0.012); Nucleated Red Blood Cells Perc 0.0 % (0.0-0.2); Red Blood Count 2.41 M/mm3 (4.6-6.20)
[2025-05-27] MEDS: metroNIDAZOLE 500 MG/ISO 100ML 500 MG/100 ML BAG 100 MG IVPB ×3 (05:32→21:00)
[2025-05-27 05:44] LABS: Alanine Aminotransferase 10 U/L (6-50); Albumin Level 3.0 g/dL (3.5-5.1); Alkaline Phosphatase 131 U/L (38-126); Anion Gap 4 mmol/L (4-12); Aspartate Amino Transferase 22 U/L (17-59); Bilirubin,Total 0.8 mg/dL (0.2-1.3); Blood Urea Nitrogen 14 mg/dL (9-20); Calcium 8.7 mg/dL (8.4-10.2); Carbon Dioxide 35 mmol/L (22-30); Chloride 95 mmol/L (98-107); Estimated CRCL calculation 18 ml/min; Estimated Glomerular Filt Rate 16; Glucose 102 mg/dL (65-110); Magnesium 2.1 mg/dL (1.6-2.3); Potassium 3.4 mmol/L (3.4-5.0); Sodium 134 mmol/L (137-145); Total Protein 5.6 g/dL (6.3-8.2)
[2025-05-27 06:02] LABS: Platelet Count Result 22 k/mm3 (150-375); White Blood Count 1.7 K/mm3 (4.5-10.0)
[2025-05-27 08:00] VITALS: BP 109/67; PULSE 60; RESP 18; TEMP 37.1; O2SAT 99
[2025-05-27 08:52] VITALS: PULSE 78
[2025-05-27] MEDS: PANTOPRAZOLE 40 MG TABLET PO ×2 (08:52→20:11)
[2025-05-27] MEDS: ISOSORBIDE MONONITRATE 30 MG TAB.ER.24H PO (08:52)
[2025-05-27] MEDS: levETIRAcetam Tablet 250 MG, levETIRAcetam Tablet 500 MG 750 MG PO ×2 (08:52→20:11)
[2025-05-27] MEDS: SEVELAMER CARBONATE 800 MG TABLET 1600 MG PO ×2 (08:52→16:44)
[2025-05-27] MEDS: FOLIC ACID 1 MG TABLET PO (08:53)
[2025-05-27] MEDS: THIAMINE HCL 100 MG TABLET PO (08:53)
--- NOTE | 2025-05-27 09:56 | P.PNNP_ITS ---
Progress Note: A&P Assessment and Plan (1) End stage renal disease: Code(s): N18.6 - End stage renal disease Status: Chronic Assessment and Plan: * HD getting started now. * volume status looks okay. * Removing some fluid * Electrolytes and BUN are doing well. * Discharge okay from the renal standpoint whenever everyone else is ready. * Long discussion with patient, Oscar, Neelam, and nurse. Oscar is concerned he can keep doing what he is doing and survive. He so busy at work that he does not take his lactulose then he gets encephalopathic and skips treatments and then gets sick. The patient admits that things are too complicated for him in the current situation any is going to look into retiring. Oscar has arrange for the dialysis unit to notify him and Ministerio in case the patient skips or reschedule dialysis. Ministerio is going to come and pick the patient up in take him to dialysis and take him back home each time for the next month or so to make sure he is getting to dialysis. We are trying rifaximin instead of lactulose to try to simplify that issue. Oscar would like Jj to retire completely immediately. Jj listen to all this. Admittedly this is not is simple as flipping a switch but it seems like Jj is going to had at least work toward intermediate as soon as possible. * I also reviewed the medicine list with Oscar, with Jj is permission, and med this are reconciled for now but some things may change on discharge. (2) Altered mental status: Qualifiers: Altered mental status type: unspecified Qualified Code(s): R41.82 - Altered mental status, unspecified Code(s): R41.82 - Altered mental status, unspecified Status: Acute Assessment and Plan: * Resolved (3) Hyperkalemia: Code(s): E87.5 - Hyperkalemia Status: Acute Assessment and Plan: * due to missed dialysis treatments * resolved (4) Cirrhosis: Code(s): K74.60 - Unspecified cirrhosis of liver Status: Acute Assessment and Plan: * known history * has been sober for the last 2 - 3 years * ammonia level was extremely high on admission * Now the patient has changed from oral lactulose to rifaximin (5) Hypertension: Code(s): I10 - Essential (primary) hypertension Status: Chronic Assessment and Plan: * systolic looks better. Ranging from 110s to 130s lately * Back on amlodipine (6) Anemia: Code(s): D64.9 - Anemia, unspecified Status: Chronic Assessment and Plan: * due to ESRD with contributions from liver disease * On Epogen with HD * Hemoglobin 7.9. This is actually a little better. (7) Pancytopenia: Code(s): D61.818 - Other pancytopenia Status: Acute Assessment and Plan: * somewhat of a chronic issue * thought to be secondary to liver disease/increased reticuloendothelial activity * anemia further complicated by ESRD * Hold off on heparin because of the low platelet count (8) Seizure disorder: Code(s): G40.909 - Epilepsy, unspecified, not intractable, without status epilepticus Status: Acute Assessment and Plan: * known history of seizure disorder * no seizures in several years * on IV Keppra (given NPO status) * no evidence of seizure activity at this time Subjective Date/time seen: 05/27/25 09:56 Interval history: Patient feels okay today. He ate a good breakfast. Brother, Oscar, and [id number] are in the room. Exam Narrative: WDWN in NAD on a ventilator in the ICU. A little bit more responsive tod skin no rash or subQ not head ncat lungs clear cor reg no rub or gallop abd BS+ nontender and soft ext no edema or cyanosis Objective Data Vital Signs Vital Signs: Vital Signs - 24 hr 05/26/25 10:00 05/26/25 10:15 05/26/25 10:30 Temperature Pulse Rate 65 65 66 Respiratory Rate Blood Pressure 121/55 L 131/64 132/92 H Pulse Oximetry 05/26/25 10:45 05/26/25 11:00 05/26/25 11:15 Temperature Pulse Rate 66 64 64 Respiratory Rate Blood Pressure 126/62 127/63 126/61 Pulse Oximetry 05/26/25 11:45 05/26/25 12:00 05/26/25 12:15 Temperature Pulse Rate 67 67 65 Respiratory Rate Blood Pressure 125/64 103/56 L 129/64 Pulse Oximetry 05/26/25 12:30 05/26/25 12:45 05/26/25 12:50 Temperature Pulse Rate 66 68 69 Respiratory Rate Blood Pressure 129/60 172/60 H 114/58 L Pulse Oximetry 05/26/25 13:12 05/26/25 16:00 05/26/25 21:15 Temperature 97.9 F 98.4 F 98.3 F Pulse Rate 66 68 72 Respiratory Rate 16 16 20 Blood Pressure 121/60 119/66 121/56 L Pulse Oximetry 100 100 99 05/27/25 08:52 Temperature Pulse Rate 78 Respiratory Rate Blood Pressure Pulse Oximetry Intake/Output Intake/Output: Intake & Output 05/24/25 05/25/25 05/26/25 05/27/25 23:59 23:59 23:59 23:59 Intake Total 2111.1 1880 958 360 Output Total 2210 2200 1999 Balance -98.9 -320 -1042 360 Meds/Results Medications: Active Medications Generic Name Dose Route Start Last Admin Trade Name Freq PRN Reason Stop Dose Admin Amlodipine Besylate 5 mg 05/24/25 10:50 05/27/25 08:52 Amlodipine Besylate 5 Mg Tablet PO 5 mg DAILY DARWIN Administration Dextrose 12.5 gm 05/22/25 12:40 Dextrose 50% 25 Gm/50 Ml Syringe IV PUSH PRN PRN Hypoglycemia Protocol Folic Acid 1 mg 05/26/25 09:00 05/27/25 08:53 Folic Acid 1 Mg Tablet PO 1 mg DAILY DARWIN Administration Glucagon 1 mg 05/22/25 12:40 Glucagon For Inj 1 Mg Vial IM PRN PRN Hypoglycemia Protocol Glucose 15 gm 05/22/25 12:40 Glucose Oral Gel 15 Gm Of Glucse In 37.5 Gm Tube PO PRN PRN Hypoglycemia Protocol Hydralazine HCl 10 mg 05/22/25 00:47 05/22/25 04:18 Hydralazine Hcl 20 Mg/Ml Vial IV PUSH 10 mg Q8H PRN Administration Blood Pressure - High Metronidazole 500 mg in 100 mls @ 100 mls/hr 05/22/25 02:00 05/27/25 05:32 Flagyl 500 Mg/Iso Soln 100 Ml IVPB 100 mls/hr Q8HR DARWIN Administration Ceftriaxone Sodium 2 gm/ 100 mls @ 200 mls/hr 05/22/25 21:00 05/26/25 21:09 Sodium Chloride IVPB Infused Q24H DARWIN Infusion Dextrose 1,000 mls @ 100 mls/hr 05/22/25 12:40 Dextrose 5% 1,000 Ml IVPB PRN PRN Hypoglycemia Protocol Isosorbide Mononitrate 30 mg 05/25/25 09:00 05/27/25 08:52 Isosorbide Mononitrate 30 Mg Tab.Er.24h PO 30 mg QAM DARWIN Administration Lactulose 40 gm 05/25/25 17:00 05/26/25 17:55 Lactulose 20 Gm/30 Ml Udc BY MOUTH 40 gm On Hold: 05/27/25 08:50 TID DARWIN Administration Levetiracetam 250 mg/ 750 mg 05/25/25 21:00 05/27/25 08:52 Levetiracetam 500 mg PO 750 mg Q12HR DARWIN Administration Lidocaine/Prilocaine 1 each 05/22/25 06:26 Lidocaine/Prilocaine Cream 2.5-2.5% Tube TOPICAL WITH DIALYSIS PRN for dialysis Protocol Melatonin 5 mg 05/26/25 21:35 05/26/25 21:38 Melatonin 5 Mg Tablet PO 5 mg HS DARWIN Administration Nadolol 20 mg 05/24/25 11:10 05/27/25 08:52 Nadolol 20 Mg Tablet PO 20 mg QAM DARWIN Administration Ondansetron HCl 4 mg 05/25/25 08:46 Ondansetron Inj 4 Mg/2 Ml Vial IV PUSH Q6H PRN Nausea And Vomiting Pantoprazole Sodium 40 mg 05/25/25 21:00 05/27/25 08:52 Pantoprazole 40 Mg Tablet PO 40 mg Q12HR DARWIN Administration Rifaximin 550 mg 05/25/25 21:00 05/27/25 08:52 Rifaximin 550 Mg Tablet BY MOUTH 550 mg Q12HR DARWIN Administration Sevelamer Carbonate 1,600 mg 05/24/25 12:00 05/27/25 08:52 Sevelamer Carbonate 800 Mg Tablet PO 1,600 mg TIDWM DARWIN Administration Sevelamer Carbonate 800 mg 05/24/25 11:08 Sevelamer Carbonate 800 Mg Tablet PO PRN PRN WITH SNACKS Thiamine HCl 100 mg 05/26/25 09:00 05/27/25 08:53 Thiamine Hcl 100 Mg Tablet PO 100 mg QAM DARWIN Administration Radiology Results: ITS Impressions Abdomen X-Ray 05/22/25 13:09 IMPRESSION: Adequate placement of gastric catheter. Several loops of gas dilated possibly distended small bowel and distended appearance of the gastric bubble. Query if patient has presentation suggestive of ileus or obstruction. Head CT 05/22/25 14:16 IMPRESSION: 1. No acute intracranial findings. Chest/Abdomen/Pelvis CT 05/22/25 14:19 IMPRESSION: 1. New patchy consolidation and groundglass opacities in the dependent bilateral lower lobes most consistent with aspiration and/or pneumonia. 2. Small left and tiny right pleural effusions. 3. Cardiomegaly. 4. Nodular cirrhotic liver with splenomegaly and markedly enlarged splenorenal collaterals consistent with secondary portal venous hypertension. 5. Small amount of ascites scattered throughout the abdomen and pelvis likely related to liver disease. 6. Bilateral nonobstructing nephrolithiasis. Chest X-Ray 05/25/25 07:03 Impression: 1: Developing mild interstitial edema. Labs Labs: Laboratory Results - last 24 hr 05/22/25 05/27/25 05/27/25 11:01 00:21 05:00 WBC 1.7 L* RBC 2.41 L Hgb 7.9 L Hct 24.7 L MCV 102.5 H MCH 32.8 MCHC 32.0 RDW 15.2 H Plt Count 22 L* MPV 12.6 H Immature Gran % (Auto) 0.6 H Neut % (Auto) 56.0 Lymph % (Auto) 32.1 Miller % (Auto) 7.1 Eos % (Auto) 3.6 Baso % (Auto) 0.6 Lymph # (Auto) 0.54 L [place] # (Auto) 0.1 Eos # (Auto) 0.1 Baso # (Auto) 0.0 Abs Immat Gran (auto) 0.01 Absolute Neuts (auto) 0.9 L Absolute Nucleated RBC 0.000 Nucleated RBC % 0.0 % Immature Plt Fraction 7.0 Sodium 134 L Potassium 3.4 Chloride 95 L Carbon Dioxide 35 H Anion Gap 4 BUN 14 D Creatinine 3.97 H Estim Creat Clear Calc 18 Estimated GFR 16 L Glucose 102 POC Capillary Glucose 99 Calcium 8.7 Phosphorus 2.6 Magnesium 2.1 Total Bilirubin 0.8 AST 22 ALT 10 Alkaline Phosphatase 131 H Total Protein 5.6 L Albumin 3.0 L Phosphatidylethanol Negative Phosphatidylethanol Quant Negative 05/27/25 06:20 WBC RBC Hgb Hct MCV MCH MCHC RDW Plt Count MPV Immature Gran % (Auto) Neut % (Auto) Lymph % (Auto) [place] % (Auto) Eos % (Auto) Baso % (Auto) Lymph # (Auto) Miller # (Auto) Eos # (Auto) Baso # (Auto) Abs Immat Gran (auto) Absolute Neuts (auto) Absolute Nucleated RBC Nucleated RBC % % Immature Plt Fraction Sodium Potassium Chloride Carbon Dioxide Anion Gap BUN Creatinine Estim Creat Clear Calc Estimated GFR Glucose POC Capillary Glucose 119 H Calcium Phosphorus Magnesium Total Bilirubin AST ALT Alkaline Phosphatase Total Protein Albumin Phosphatidylethanol Phosphatidylethanol Quant
--- NOTE | 2025-05-27 11:08 | PCNWS ---
Weekly nutritional screen. Patient is tolerating current Renal diet with adequate intake 100%, family brings food in. Nepro shakes BID. No weight loss reported. No nutritional recommendations at this time.
--- NOTE | 2025-05-27 14:34 | P.PNIM_ITS ---
Progress Note: A&P Assessment and Plan (1) Acute respiratory failure: Code(s): J96.00 - Acute respiratory failure, unspecified whether with hypoxia or hypercapnia Status: Resolved Assessment and Plan: Acute respiratory failure secondary to hepatic encephalopathy and pulmonary edema which is likely secondary to missed hemodialysis session and/or CHF with a component of aspiration PNA. Patient was unresponsive and hypoxic in respiratory distress and was emergently transferred to ICU from dialysis center. He was emergently intubated in the ICU and placed on invasive mechanical ventilation. Large amount of frothy white secretions seen in the oropharynx and through the ET tube at the time of intubation. unresponsive, hypoxic in respiratory distress CT chest (05/22) showing a new patchy consolidation and ground glass opacities in the dependent bilateral lower lobes most consistent with aspiration and/or pneumonia. Patient also with hepatic encephalopathy treated as below. He underwent HD with 3L removed. Started on IV abx. Mental status improved. Patient more awake and alert and able to be extubated successfully 05/24 Weaned to room air now. (2) Encephalopathy, hepatic: Code(s): K72.90 - Hepatic failure, unspecified without coma Status: Acute Assessment and Plan: Head CT 05/21 and 05/22 were unremarkable for acute change. ABG did not show hypercarbia. Elevated ammonia to 167. Secondary to cirrhosis. Gastric tube in placed and rifaximin and lactulose started Ammonia has normalized. Patient more awake, alert Back to baseline. Follow. Continue rifaximin and lactulose has switched to p.o. (3) Pneumonia: Code(s): J18.9 - Pneumonia, unspecified organism Status: Acute Assessment and Plan: Initial CT chest (05/21) showing no acute pulmonary lesions but repeat CT chest with contrast showing new patchy consolidation and ground glass opacities in the dependent bilateral lower lobes Continue Rocephin (05/21) and Flagyl (05/22) No BCx drawn MRSA nasal swab negative Leukopenic with WBC 1700 (ANC 980). Continue IV abx for today. (4) Hyperammonemia: Code(s): E72.20 - Disorder of urea cycle metabolism, unspecified Status: Acute Assessment and Plan: As above (5) Pulmonary edema: Code(s): J81.1 - Chronic pulmonary edema Status: Acute Assessment and Plan: Echo 05/05/25 showing normal LV systolic function with EF 60-65%, abnormal diastolic dysfunction, enlarged atria, mild valvular disease. As above. (6) Hypertension: Code(s): I10 - Essential (primary) hypertension Status: Chronic Assessment and Plan: Patient's blood pressure was reviewed on 05/26 Blood pressure remains well controlled. 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 He also has esophageal varices. INR 1.5. Ammonia level elevated Management of elevated ammonia as above Patient is currently on antibiotics for SBP prophylaxis and ultrasound-guided paracentesis was ordered but radiologist felt the fluid who was too small in amount. e (8) Esophageal varices in alcoholic cirrhosis: Code(s): K70.30 - Alcoholic cirrhosis of liver without ascites; I85.10 - Secondary esophageal varices without bleeding Status: Acute Assessment and Plan: No objective sign of active bleeding Continue Protonix (9) Pancytopenia: Code(s): D61.818 - Other pancytopenia Status: Acute Assessment and Plan: Secondary to cirrhosis. WBC down to 1700. Could be consumptive from PNA Platelet at 22K related to cirrhosis and sequestration from splenomegaly Hgb 9.3 on admission but down to 7.9 range but still drifting down related to anemia of chronic disease and ESRD Monitor. Transfuse if needed (10) ESRD needing dialysis: Code(s): N18.6 - End stage renal disease; Z99.2 - Dependence on renal dialysis Status: Chronic Assessment and Plan: Patient with ESRD on HD Patient missed his last 2 dialysis session is presents with volume overload Patient received HD 05/22, 05/23 and 05/25. 05.26 Appreciate nephrology following the patient, dialysis per Nephrology team (11) Seizure disorder: Code(s): G40.909 - Epilepsy, unspecified, not intractable, without status epilepticus Status: Acute Assessment and Plan: Stable. Continue Keppra Plan DVT prophylaxis - SCDs Code Status: Full Code Subjective Date/time seen: 05/27/25 14:34 Interval history: Patient was seen and examined at bedside He feels fine Denies any chest pain, shortness off breath. WBC 1.7, platelet 00900, creatinine 3.97. Review chest x-ray showed pulmonary edema. Discussed with his family at bedside. Brother, Oscar, and [id number] are in the room. Plan for possible discharge tomorrow if platelets stay several/improving and his mental status is improving Review of Systems Review of Systems: All systems reviewed & are unremarkable except as noted in HPI and below ROS unobtainable: Yes unobtainable due to endotracheal tube, unobtainable due to medical condition and unobtainable due to mental status Exam Narrative: Tm 100.5 97.8 132/92 66 16 100% Gen - NARD Chest -lungs are clear anteriorly. CV - RRR S1/S2 with a 2 in 6 systolic murmur heard throughout the precordium and up into the upper chest Abd -soft. Nontender. Nondistended. Positive bowel sounds Ext - No pedal edema. 2+ DP pulses bilaterally. Left upper extremity fistula is currently accessed Neuro - Alert and oriented x4. Nonfocal exam. Psych - Nml mood and affect Skin - Warm and dry Const: General: cooperative, no acute distress, well developed, awake, Physically active and average body habitus Nutritional Appearance: average body habitus Orientation/consciousness: oriented to person Other: The patient is answering questions inappropriately. The patient appears to be jaundice. HENMT: Head: normal to inspection, No palpable skull fracture present, normocephalic, atraumatic and abrasion Ears: hearing grossly normal bilaterally Eyes: General: appearance normal, both eyes and all related structures Alignment and Position: alignment normal Periorbital: periorbital findings normal Eyelids: eyelids normal Neck: Neck: normal visual inspection and full ROM Chest: Chest palpation & inspection: normal inspection of the chest Resp: Effort & Inspection: normal respiratory effort Auscultation: rhonchi lower bilaterally Cardio: Palpation: normal PMI Rate: regular rate Rhythm: regular rhythm Heart sounds: S1 normal heart sound present and S2 normal heart sound present Peripheral pulses: Peripheral pulses 2+ throughout GI: Inspection: normal to inspection : General: Yes no CVA tenderness Back/Spine/Pelvis: Back: no CVA tenderness Skin: General skin exam: normal color Lesions: no lesions Rashes: no rashes Trauma: no lacerations or abrasions Neuro: General: oriented to person Motor exam (neuro): 5/5 motor strength present throughout Extrem: General: normal to inspection Right upper extremity: normal to inspection and shoulder/upper arm Left upper extremity: normal to inspection and shoulder/upper arm Right lower extremity: normal to inspection Left lower extremity: normal to inspection Other: AV fistula left forearm has a positive bruit and thrill. Psych: Appearance: grossly normal Mental Status: mental status grossly normal Objective Data Vital Signs Vital Signs: Vital Signs - 24 hr 05/26/25 16:00 05/26/25 21:15 05/27/25 08:52 Temperature 98.4 F 98.3 F Pulse Rate 68 72 78 Respiratory Rate 16 20 Blood Pressure 119/66 121/56 L Pulse Oximetry 100 99 Intake/Output Intake/Output: Intake & Output 05/24/25 05/25/25 05/26/25 05/27/25 23:59 23:59 23:59 23:59 Intake Total 2111.1 1880 958 940 Output Total 2210 2200 1999 Balance -98.9 -320 -1042 940 Meds/Results Medications: Active Medications Generic Name Dose Route Start Last Admin Trade Name Freq PRN Reason Stop Dose Admin Amlodipine Besylate 5 mg 05/24/25 10:50 05/27/25 08:52 Amlodipine Besylate 5 Mg Tablet PO 5 mg DAILY DARWIN Administration Dextrose 12.5 gm 05/22/25 12:40 Dextrose 50% 25 Gm/50 Ml Syringe IV PUSH PRN PRN Hypoglycemia Protocol Folic Acid 1 mg 05/26/25 09:00 05/27/25 08:53 Folic Acid 1 Mg Tablet PO 1 mg DAILY DARWIN Administration Glucagon 1 mg 05/22/25 12:40 Glucagon For Inj 1 Mg Vial IM PRN PRN Hypoglycemia Protocol Glucose 15 gm 05/22/25 12:40 Glucose Oral Gel 15 Gm Of Glucse In 37.5 Gm Tube PO PRN PRN Hypoglycemia Protocol Hydralazine HCl 10 mg 05/22/25 00:47 05/22/25 04:18 Hydralazine Hcl 20 Mg/Ml Vial IV PUSH 10 mg Q8H PRN Administration Blood Pressure - High Metronidazole 500 mg in 100 mls @ 100 mls/hr 05/22/25 02:00 05/27/25 13:41 Flagyl 500 Mg/Iso Soln 100 Ml IVPB 100 mls/hr Q8HR DARWIN Administration Ceftriaxone Sodium 2 gm/ 100 mls @ 200 mls/hr 05/22/25 21:00 05/26/25 21:09 Sodium Chloride IVPB Infused Q24H DARWIN Infusion Dextrose 1,000 mls @ 100 mls/hr 05/22/25 12:40 Dextrose 5% 1,000 Ml IVPB PRN PRN Hypoglycemia Protocol Isosorbide Mononitrate 30 mg 05/25/25 09:00 05/27/25 08:52 Isosorbide Mononitrate 30 Mg Tab.Er.24h PO 30 mg QAM DARWIN Administration Lactulose 40 gm 05/25/25 17:00 05/26/25 17:55 Lactulose 20 Gm/30 Ml Udc BY MOUTH 40 gm On Hold: 05/27/25 08:50 TID DARWIN Administration Levetiracetam 250 mg/ 750 mg 05/25/25 21:00 05/27/25 08:52 Levetiracetam 500 mg PO 750 mg Q12HR DARWIN Administration Lidocaine/Prilocaine 1 each 05/22/25 06:26 Lidocaine/Prilocaine Cream 2.5-2.5% Tube TOPICAL WITH DIALYSIS PRN for dialysis Protocol Melatonin 5 mg 05/26/25 21:35 05/26/25 21:38 Melatonin 5 Mg Tablet PO 5 mg HS DARWIN Administration Nadolol 20 mg 05/24/25 11:10 05/27/25 08:52 Nadolol 20 Mg Tablet PO 20 mg QAM DARWIN Administration Ondansetron HCl 4 mg 05/25/25 08:46 Ondansetron Inj 4 Mg/2 Ml Vial IV PUSH Q6H PRN Nausea And Vomiting Pantoprazole Sodium 40 mg 05/25/25 21:00 05/27/25 08:52 Pantoprazole 40 Mg Tablet PO 40 mg Q12HR DARWIN Administration Rifaximin 550 mg 05/25/25 21:00 05/27/25 08:52 Rifaximin 550 Mg Tablet BY MOUTH 550 mg Q12HR DARWIN Administration Sevelamer Carbonate 1,600 mg 05/24/25 12:00 05/27/25 08:52 Sevelamer Carbonate 800 Mg Tablet PO 1,600 mg TIDWM DARWIN Administration Sevelamer Carbonate 800 mg 05/24/25 11:08 Sevelamer Carbonate 800 Mg Tablet PO PRN PRN WITH SNACKS Thiamine HCl 100 mg 05/26/25 09:00 05/27/25 08:53 Thiamine Hcl 100 Mg Tablet PO 100 mg QAM DARWIN Administration Radiology Results: ITS Impressions Abdomen X-Ray 05/22/25 13:09 IMPRESSION: Adequate placement of gastric catheter. Several loops of gas dilated possibly distended small bowel and distended appearance of the gastric bubble. Query if patient has presentation suggestive of ileus or obstruction. Head CT 05/22/25 14:16 IMPRESSION: 1. No acute intracranial findings. Chest/Abdomen/Pelvis CT 05/22/25 14:19 IMPRESSION: 1. New patchy consolidation and groundglass opacities in the dependent bilateral lower lobes most consistent with aspiration and/or pneumonia. 2. Small left and tiny right pleural effusions. 3. Cardiomegaly. 4. Nodular cirrhotic liver with splenomegaly and markedly enlarged splenorenal collaterals consistent with secondary portal venous hypertension. 5. Small amount of ascites scattered throughout the abdomen and pelvis likely related to liver disease. 6. Bilateral nonobstructing nephrolithiasis. Chest X-Ray 05/25/25 07:03 Impression: 1: Developing mild interstitial edema. Labs Labs: Laboratory Results - last 24 hr 05/22/25 05/27/25 05/27/25 11:01 00:21 05:00 WBC 1.7 L* RBC 2.41 L Hgb 7.9 L Hct 24.7 L MCV 102.5 H MCH 32.8 MCHC 32.0 RDW 15.2 H Plt Count 22 L* MPV 12.6 H Immature Gran % (Auto) 0.6 H Neut % (Auto) 56.0 Lymph % (Auto) 32.1 [place] % (Auto) 7.1 Eos % (Auto) 3.6 Baso % (Auto) 0.6 Lymph # (Auto) 0.54 L [place] # (Auto) 0.1 Eos # (Auto) 0.1 Baso # (Auto) 0.0 Abs Immat Gran (auto) 0.01 Absolute Neuts (auto) 0.9 L Absolute Nucleated RBC 0.000 Nucleated RBC % 0.0 % Immature Plt Fraction 7.0 Sodium 134 L Potassium 3.4 Chloride 95 L Carbon Dioxide 35 H Anion Gap 4 BUN 14 D Creatinine 3.97 H Estim Creat Clear Calc 18 Estimated GFR 16 L Glucose 102 POC Capillary Glucose 99 Calcium 8.7 Phosphorus 2.6 Magnesium 2.1 Total Bilirubin 0.8 AST 22 ALT 10 Alkaline Phosphatase 131 H Total Protein 5.6 L Albumin 3.0 L Phosphatidylethanol Negative Phosphatidylethanol Quant Negative 05/27/25 06:20 WBC RBC Hgb Hct MCV MCH MCHC RDW Plt Count MPV Immature Gran % (Auto) Neut % (Auto) Lymph % (Auto) [place] % (Auto) Eos % (Auto) Baso % (Auto) Lymph # (Auto) [place] # (Auto) Eos # (Auto) Baso # (Auto) Abs Immat Gran (auto) Absolute Neuts (auto) Absolute Nucleated RBC Nucleated RBC % % Immature Plt Fraction Sodium Potassium Chloride Carbon Dioxide Anion Gap BUN Creatinine Estim Creat Clear Calc Estimated GFR Glucose POC Capillary Glucose 119 H Calcium Phosphorus Magnesium Total Bilirubin AST ALT Alkaline Phosphatase Total Protein Albumin Phosphatidylethanol Phosphatidylethanol Quant Quality VTE Prophylaxis VTE prophylaxis: mechanical ordered
[2025-05-27] MEDS: cefTRIAXone 2 GM in SODIUM CHLORIDE 0.9% IV 100 ML 200 ML IVPB (20:11)
[2025-05-27] MEDS: MELATONIN 5 MG TABLET PO (20:11)
[2025-05-27 20:40] VITALS: BP 113/58; PULSE 65; RESP 20; TEMP 36.9; O2SAT 97
[2025-05-28] MEDS: metroNIDAZOLE 500 MG/ISO 100ML 500 MG/100 ML BAG 100 MG IVPB ×3 (05:03→22:57)
[2025-05-28 05:24] LABS: Hematocrit 25.6 % (42.0-52.0); Hemoglobin 8.1 g/dL (14.0-18.0); Immature Platelet Fraction Pct 7.4 % (0.9-11.2); Mean Corpuscular HGB Conc 31.6 g/dl (32-36); Mean Corpuscular Hemoglobin 32.7 pg (26-34); Mean Corpuscular Volume 103.2 fl (80-100); Red Blood Count 2.48 M/mm3 (4.6-6.20); White Blood Count 2.0 K/mm3 (4.5-10.0)
[2025-05-28 05:31] LABS: Platelet Count Result 21 k/mm3 (150-375)
[2025-05-28 05:59] LABS: Albumin Level 3.0 g/dL (3.5-5.1); Anion Gap 2 mmol/L (4-12); Blood Urea Nitrogen 26 mg/dL (9-20); Calcium 9.1 mg/dL (8.4-10.2); Carbon Dioxide 34 mmol/L (22-30); Chloride 95 mmol/L (98-107); Estimated CRCL calculation 12 ml/min; Estimated Glomerular Filt Rate 10; Glucose 98 mg/dL (65-110); Potassium 4.0 mmol/L (3.4-5.0); Sodium 131 mmol/L (137-145)
[2025-05-28 07:49] VITALS: BP 120/58; PULSE 65; RESP 16; TEMP 36.7; O2SAT 97
--- NOTE | 2025-05-28 08:34 | PM.IMPN ---
Progress Note: A&P Assessment and Plan (1) Acute respiratory failure: Code(s): J96.00 - Acute respiratory failure, unspecified whether with hypoxia or hypercapnia Status: Resolved Assessment and Plan: Acute respiratory failure secondary to hepatic encephalopathy and pulmonary edema which is likely secondary to missed hemodialysis session and/or CHF with a component of aspiration PNA. Patient was unresponsive and hypoxic in respiratory distress and was emergently transferred to ICU from dialysis center. He was emergently intubated in the ICU and placed on invasive mechanical ventilation. Large amount of frothy white secretions seen in the oropharynx and through the ET tube at the time of intubation. Patient more awake and alert and able to be extubated successfully 05/24 CT chest (05/22) showing a new patchy consolidation and ground glass opacities in the dependent bilateral lower lobes most consistent with aspiration and/or pneumonia. Repeat imaging showing improvement to lung sawyer Weaned to room air. Denies shortness of breath. Speaking full sentences. (2) Encephalopathy, hepatic: Code(s): K72.90 - Hepatic failure, unspecified without coma Status: Acute Assessment and Plan: Head CT 05/21 and 05/22 were unremarkable for acute change. ABG did not show hypercarbia. Elevated ammonia to 167. Secondary to cirrhosis. Initially requiring Gastric tube placed as he was altered and intubated which has since been discontinued Continue rifaximin and lactulose p.o. Ammonia has normalized. Back to baseline. (3) Pneumonia: Code(s): J18.9 - Pneumonia, unspecified organism Status: Acute Assessment and Plan: Initial CT chest (05/21) showing no acute pulmonary lesions but repeat CT chest with contrast showing new patchy consolidation and ground glass opacities in the dependent bilateral lower lobes Repeat imaging showing improvement Continue Rocephin (05/21) and Flagyl (05/22) No BCx drawn MRSA nasal swab negative Weaned to room air. Denies shortness of breath. Speaking full sentences. 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 He also has esophageal varices. INR 1.5. Ammonia level elevated. Management of elevated ammonia as above, has since returned to normal Patient is currently on antibiotics for SBP prophylaxis Ultrasound-guided paracentesis was ordered but radiologist felt the fluid who was too small in amount. Denies abdominal pain, nausea/vomiting. Tolerating diet well. Per patient has an appointment at [facility] on June 29 to be worked up for a liver and kidney transplant (5) Pancytopenia: Code(s): D61.818 - Other pancytopenia Status: Acute Assessment and Plan: Secondary to cirrhosis. WBC 2.0 Platelet at 22K related to cirrhosis and sequestration from splenomegaly Hgb 9.3 on admission, currently 8.1 on am labs. Related to anemia of chronic disease and ESRD Monitor. Transfuse if needed Previously seen by [facility] at [facility], Dr. Simmons (6) Pulmonary edema: Code(s): J81.1 - Chronic pulmonary edema Status: Acute Assessment and Plan: Echo 05/05/25 showing normal LV systolic function with EF 60-65%, abnormal diastolic dysfunction, enlarged atria, mild valvular disease. As above. (7) Hypertension: Code(s): I10 - Essential (primary) hypertension Status: Chronic Assessment and Plan: Chronic, continue amlodipine 5 mg daily,imdur 30 mg daily Started on nadolol 20 mg daily 05/24 Holding lasix 80 mg BID, hydralazine 25 mg TID, Blood pressure was reviewed and remains well controlled. Will continue to follow (8) ESRD needing dialysis: Code(s): N18.6 - End stage renal disease; Z99.2 - Dependence on renal dialysis Status: Chronic Assessment and Plan: Patient with ESRD on HD Patient missed his last 2 dialysis session is presents with volume overload Plan for dialysis tomorrow as scheduled Appreciate nephrology following the patient, dialysis per Nephrology team Per patient has an appointment at [facility] on June 29 to be worked up for a liver and kidney transplant (9) Esophageal varices in alcoholic cirrhosis: Code(s): K70.30 - Alcoholic cirrhosis of liver without ascites; I85.10 - Secondary esophageal varices without bleeding Status: Acute Assessment and Plan: No objective sign of active bleeding Continue Protonix (10) Seizure disorder: Code(s): G40.909 - Epilepsy, unspecified, not intractable, without status epilepticus Status: Acute Assessment and Plan: Stable. Continue Keppra Plan DVT prophylaxis - SCDs Code Status: Full Code Time Spent With Patient Time with patient: 25 - 35 minutes Subjective Date/time seen: 05/28/25 08:34 Interval history: 59-year-old male patient who has liver failure and end-stage renal disease on dialysis MWF however after missing 2 days of dialysis he was noted to be altered leading to him presented to the hospital. Patient is pleasant lying comfortably in bed. He has no complaints chest pain, shortness a breath palpitations, nausea/vomiting, and abdominal pain. He states he feels back to his baseline as been ambulating throughout his room dizziness or lightheadedness. Review of Systems Review of Systems: All systems reviewed & are unremarkable except as noted in HPI and below Exam Narrative: AF HR 65 RR 16 Spo2 97 BP 120/58 General: male in no acute respiratory distress who is nontoxic appearing, lying semi recumbent in bed. HEENT: Normocephalic. Atraumatic. Extraocular movement intact. Sclera clear and anicteric. No facial asymmetry. Chest: Lungs are clear to auscultation bilaterally. CV: Heart was regular rate and rhythm. Abd: Abdomen was soft. Nontender. Nondistended. Positive bowel sounds. Ext: No clubbing, cyanosis, or edema. DP pulses bilaterally. Neuro: Patient is alert. Speech is clear. Objective Data Vital Signs Vital Signs: Vital Signs - 24 hr 05/27/25 08:52 05/27/25 20:15 05/27/25 20:40 Temperature 98.4 F Pulse Rate 78 65 Respiratory Rate 20 Blood Pressure 113/58 L Pulse Oximetry 97 Oxygen Delivery Room Air 05/28/25 07:49 Temperature 98.1 F Pulse Rate 65 Respiratory Rate 16 Blood Pressure 120/58 L Pulse Oximetry 97 Oxygen Delivery Intake/Output Intake/Output: Intake & Output 05/25/25 05/26/25 05/27/25 05/28/25 23:59 23:59 23:59 23:59 Intake Total 1561 082 8858 477 Output Total 2200 2000 Balance -320 -1042 1480 477 Meds/Results Medications: Active Medications Generic Name Dose Route Start Last Admin Trade Name Freq PRN Reason Stop Dose Admin Amlodipine Besylate 5 mg 05/24/25 10:50 05/27/25 08:52 Amlodipine Besylate 5 Mg Tablet PO 5 mg DAILY DARWIN Administration Dextrose 12.5 gm 05/22/25 12:40 Dextrose 50% 25 Gm/50 Ml Syringe IV PUSH PRN PRN Hypoglycemia Protocol Folic Acid 1 mg 05/26/25 09:00 05/27/25 08:53 Folic Acid 1 Mg Tablet PO 1 mg DAILY DARWIN Administration Glucagon 1 mg 05/22/25 12:40 Glucagon For Inj 1 Mg Vial IM PRN PRN Hypoglycemia Protocol Glucose 15 gm 05/22/25 12:40 Glucose Oral Gel 15 Gm Of Glucse In 37.5 Gm Tube PO PRN PRN Hypoglycemia Protocol Hydralazine HCl 10 mg 05/22/25 00:47 05/22/25 04:18 Hydralazine Hcl 20 Mg/Ml Vial IV PUSH 10 mg Q8H PRN Administration Blood Pressure - High Metronidazole 500 mg in 100 mls @ 100 mls/hr 05/22/25 02:00 05/28/25 05:03 Flagyl 500 Mg/Iso Soln 100 Ml IVPB 100 mls/hr Q8HR DARWIN Administration Ceftriaxone Sodium 2 gm/ 100 mls @ 200 mls/hr 05/22/25 21:00 05/27/25 20:41 Sodium Chloride IVPB Infused Q24H DARWIN Infusion Dextrose 1,000 mls @ 100 mls/hr 05/22/25 12:40 Dextrose 5% 1,000 Ml IVPB PRN PRN Hypoglycemia Protocol Isosorbide Mononitrate 30 mg 05/25/25 09:00 05/27/25 08:52 Isosorbide Mononitrate 30 Mg Tab.Er.24h PO 30 mg QAM DARWIN Administration Lactulose 40 gm 05/25/25 17:00 05/26/25 17:55 Lactulose 20 Gm/30 Ml Udc BY MOUTH 40 gm On Hold: 05/27/25 08:50 TID DARWIN Administration Levetiracetam 250 mg/ 750 mg 05/25/25 21:00 05/27/25 20:11 Levetiracetam 500 mg PO 750 mg Q12HR DARWIN Administration Lidocaine/Prilocaine 1 each 05/22/25 06:26 Lidocaine/Prilocaine Cream 2.5-2.5% Tube TOPICAL WITH DIALYSIS PRN for dialysis Protocol Melatonin 5 mg 05/26/25 21:35 05/27/25 20:11 Melatonin 5 Mg Tablet PO 5 mg HS DARWIN Administration Nadolol 20 mg 05/24/25 11:10 05/27/25 08:52 Nadolol 20 Mg Tablet PO 20 mg QAM DARWIN Administration Ondansetron HCl 4 mg 05/25/25 08:46 Ondansetron Inj 4 Mg/2 Ml Vial IV PUSH Q6H PRN Nausea And Vomiting Pantoprazole Sodium 40 mg 05/25/25 21:00 05/27/25 20:11 Pantoprazole 40 Mg Tablet PO 40 mg Q12HR DARWIN Administration Rifaximin 550 mg 05/25/25 21:00 05/27/25 20:12 Rifaximin 550 Mg Tablet BY MOUTH 550 mg Q12HR DARWIN Administration Sevelamer Carbonate 1,600 mg 05/24/25 12:00 05/27/25 16:44 Sevelamer Carbonate 800 Mg Tablet PO 1,600 mg TIDWM DARWIN Administration Sevelamer Carbonate 800 mg 05/24/25 11:08 Sevelamer Carbonate 800 Mg Tablet PO PRN PRN WITH SNACKS Thiamine HCl 100 mg 05/26/25 09:00 05/27/25 08:53 Thiamine Hcl 100 Mg Tablet PO 100 mg QAM DARWIN Administration Radiology Results: ITS Impressions Abdomen X-Ray 05/22/25 13:09 IMPRESSION: Adequate placement of gastric catheter. Several loops of gas dilated possibly distended small bowel and distended appearance of the gastric bubble. Query if patient has presentation suggestive of ileus or obstruction. Head CT 05/22/25 14:16 IMPRESSION: 1. No acute intracranial findings. Chest/Abdomen/Pelvis CT 05/22/25 14:19 IMPRESSION: 1. New patchy consolidation and groundglass opacities in the dependent bilateral lower lobes most consistent with aspiration and/or pneumonia. 2. Small left and tiny right pleural effusions. 3. Cardiomegaly. 4. Nodular cirrhotic liver with splenomegaly and markedly enlarged splenorenal collaterals consistent with secondary portal venous hypertension. 5. Small amount of ascites scattered throughout the abdomen and pelvis likely related to liver disease. 6. Bilateral nonobstructing nephrolithiasis. Chest X-Ray 05/25/25 07:03 Impression: 1: Developing mild interstitial edema. Labs Labs: Laboratory Results - last 24 hr 05/28/25 05/28/25 05/28/25 00:02 04:53 05:34 WBC 2.0 L RBC 2.48 L Hgb 8.1 L Hct 25.6 L MCV 103.2 H MCH 32.7 MCHC 31.6 L RDW 16.0 H Plt Count 21 L* MPV 14.4 H % Immature Plt Fraction 7.4 Sodium 131 L Potassium 4.0 Chloride 95 L Carbon Dioxide 34 H Anion Gap 2 L BUN 26 H D Creatinine 6.02 H Estim Creat Clear Calc 12 Estimated GFR 10 L Glucose 98 POC Capillary Glucose 110 H 101 Calcium 9.1 Phosphorus 2.9 Albumin 3.0 L Quality VTE Prophylaxis VTE prophylaxis: mechanical ordered If No VTE Prophylaxis Answer both mechanical and pharmacologic: Reason no pharmacologic proph: medical contraindication thrombocytopenia
[2025-05-28] MEDS: THIAMINE HCL 100 MG TABLET PO (09:53)
[2025-05-28] MEDS: ISOSORBIDE MONONITRATE 30 MG TAB.ER.24H PO (09:53)
[2025-05-28] MEDS: PANTOPRAZOLE 40 MG TABLET PO ×2 (09:53→21:54)
[2025-05-28] MEDS: FOLIC ACID 1 MG TABLET PO (09:53)
[2025-05-28] MEDS: levETIRAcetam Tablet 250 MG, levETIRAcetam Tablet 500 MG 750 MG PO ×2 (09:54→21:53)
[2025-05-28] MEDS: SEVELAMER CARBONATE 800 MG TABLET 1600 MG PO ×2 (12:11→17:38)
--- NOTE | 2025-05-28 13:20 | WPDGIPROGNO ---
Progress Note: A&P Assessment and Plan (1) Cirrhosis, alcoholic: Qualifiers: Ascites presence: without ascites Qualified Code(s): K70.30 - Alcoholic cirrhosis of liver without ascites Code(s): K70.30 - Alcoholic cirrhosis of liver without ascites Status: Acute Assessment and Plan: he was admitted with hepatic encephalopathy, also pulmonary edema after missed dialysis required intubation he is back to his baseline doing much better continue with lactulose titrate for 3-4 bm/d and xifaxan bid tolerating diet hopefully home soon he can follow-up in office (2) Encephalopathy, hepatic: Code(s): K72.90 - Hepatic failure, unspecified without coma Status: Acute Assessment and Plan: continue xifaxan and lactulose- titrate to get 3-4 BM/d normalization of ammonia level (3) ESRD needing dialysis: Code(s): N18.6 - End stage renal disease; Z99.2 - Dependence on renal dialysis Status: Chronic 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 (4) Acute respiratory failure: Code(s): J96.00 - Acute respiratory failure, unspecified whether with hypoxia or hypercapnia Status: Resolved Assessment and Plan: extubated few days ago and doing much better (5) Pulmonary edema: Code(s): J81.1 - Chronic pulmonary edema Status: Acute Assessment and Plan: resolved after dialysis and medical treatment (6) Pancytopenia: Code(s): D61.818 - Other pancytopenia Status: Acute Subjective Date/time seen: 05/28/25 13:20 Interval history: overall much better, near to his baseline he has been eating, denies SOB he is having BM with lactulose and he is not confused anymore family members at bedside Review of Systems Review of Systems: All systems reviewed & are unremarkable except as noted in HPI and below Exam Narrative: General: male in no acute respiratory distress who is nontoxic appearing, lying semi recumbent in bed. Neck- supple HEENT: Normocephalic. Atraumatic. Extraocular movement intact. Sclera clear and anicteric. No facial asymmetry. Chest: Lungs are clear to auscultation bilaterally. CV: Heart was regular rate and rhythm. Abd: Abdomen was soft. Nontender. Nondistended. Positive bowel sounds. Ext: No clubbing, cyanosis, or edema. skin: no rash psych: normal affect Neuro: Patient is alert. Speech is clear. Objective Data Vital Signs Vital Signs: Vital Signs - 24 hr 05/27/25 20:15 05/27/25 20:40 05/28/25 07:49 Temperature 98.4 F 98.1 F Pulse Rate 65 65 Respiratory Rate 20 16 Blood Pressure 113/58 L 120/58 L Pulse Oximetry 97 97 Oxygen Delivery Room Air 05/28/25 08:00 Temperature Pulse Rate Respiratory Rate Blood Pressure Pulse Oximetry Oxygen Delivery Room Air Intake/Output Intake/Output: Intake & Output 05/25/25 05/26/25 05/27/25 05/28/25 23:59 23:59 23:59 23:59 Intake Total 9191 053 2085 717 Output Total 2200 2000 Balance -320 -1042 1480 717 Meds/Results Medications: Active Medications Generic Name Dose Route Start Last Admin Trade Name Freq PRN Reason Stop Dose Admin Amlodipine Besylate 5 mg 05/24/25 10:50 05/28/25 09:53 Amlodipine Besylate 5 Mg Tablet PO 5 mg DAILY DARWIN Administration Dextrose 12.5 gm 05/22/25 12:40 Dextrose 50% 25 Gm/50 Ml Syringe IV PUSH PRN PRN Hypoglycemia Protocol Folic Acid 1 mg 05/26/25 09:00 05/28/25 09:53 Folic Acid 1 Mg Tablet PO 1 mg DAILY DARWIN Administration Glucagon 1 mg 05/22/25 12:40 Glucagon For Inj 1 Mg Vial IM PRN PRN Hypoglycemia Protocol Glucose 15 gm 05/22/25 12:40 Glucose Oral Gel 15 Gm Of Glucse In 37.5 Gm Tube PO PRN PRN Hypoglycemia Protocol Hydralazine HCl 10 mg 05/22/25 00:47 05/22/25 04:18 Hydralazine Hcl 20 Mg/Ml Vial IV PUSH 10 mg Q8H PRN Administration Blood Pressure - High Metronidazole 500 mg in 100 mls @ 100 mls/hr 05/22/25 02:00 05/28/25 05:03 Flagyl 500 Mg/Iso Soln 100 Ml IVPB 100 mls/hr Q8HR DARWIN Administration Ceftriaxone Sodium 2 gm/ 100 mls @ 200 mls/hr 05/22/25 21:00 05/27/25 20:41 Sodium Chloride IVPB Infused Q24H DARWIN Infusion Dextrose 1,000 mls @ 100 mls/hr 05/22/25 12:40 Dextrose 5% 1,000 Ml IVPB PRN PRN Hypoglycemia Protocol Isosorbide Mononitrate 30 mg 05/25/25 09:00 05/28/25 09:53 Isosorbide Mononitrate 30 Mg Tab.Er.24h PO 30 mg QAM DARWIN Administration Lactulose 40 gm 05/25/25 17:00 05/26/25 17:55 Lactulose 20 Gm/30 Ml Udc BY MOUTH 40 gm On Hold: 05/27/25 08:50 TID DARWIN Administration Levetiracetam 250 mg/ 750 mg 05/25/25 21:00 05/28/25 09:54 Levetiracetam 500 mg PO 750 mg Q12HR DARWIN Administration Lidocaine/Prilocaine 1 each 05/22/25 06:26 Lidocaine/Prilocaine Cream 2.5-2.5% Tube TOPICAL WITH DIALYSIS PRN for dialysis Protocol Melatonin 5 mg 05/26/25 21:35 05/27/25 20:11 Melatonin 5 Mg Tablet PO 5 mg HS DARWIN Administration Nadolol 20 mg 05/24/25 11:10 05/28/25 09:53 Nadolol 20 Mg Tablet PO 20 mg QAM DARWIN Administration Ondansetron HCl 4 mg 05/25/25 08:46 Ondansetron Inj 4 Mg/2 Ml Vial IV PUSH Q6H PRN Nausea And Vomiting Pantoprazole Sodium 40 mg 05/25/25 21:00 05/28/25 09:53 Pantoprazole 40 Mg Tablet PO 40 mg Q12HR DARWIN Administration Rifaximin 550 mg 05/25/25 21:00 05/28/25 09:53 Rifaximin 550 Mg Tablet BY MOUTH 550 mg Q12HR DARWIN Administration Sevelamer Carbonate 1,600 mg 05/24/25 12:00 05/28/25 12:11 Sevelamer Carbonate 800 Mg Tablet PO 1,600 mg TIDWM DARWIN Administration Sevelamer Carbonate 800 mg 05/24/25 11:08 Sevelamer Carbonate 800 Mg Tablet PO PRN PRN WITH SNACKS Thiamine HCl 100 mg 05/26/25 09:00 05/28/25 09:53 Thiamine Hcl 100 Mg Tablet PO 100 mg QAM DARWIN Administration Radiology Results: ITS Impressions Abdomen X-Ray 05/22/25 13:09 IMPRESSION: Adequate placement of gastric catheter. Several loops of gas dilated possibly distended small bowel and distended appearance of the gastric bubble. Query if patient has presentation suggestive of ileus or obstruction. Head CT 05/22/25 14:16 IMPRESSION: 1. No acute intracranial findings. Chest/Abdomen/Pelvis CT 05/22/25 14:19 IMPRESSION: 1. New patchy consolidation and groundglass opacities in the dependent bilateral lower lobes most consistent with aspiration and/or pneumonia. 2. Small left and tiny right pleural effusions. 3. Cardiomegaly. 4. Nodular cirrhotic liver with splenomegaly and markedly enlarged splenorenal collaterals consistent with secondary portal venous hypertension. 5. Small amount of ascites scattered throughout the abdomen and pelvis likely related to liver disease. 6. Bilateral nonobstructing nephrolithiasis. Chest X-Ray 05/25/25 07:03 Impression: 1: Developing mild interstitial edema. Labs Labs: Laboratory Results - last 24 hr 05/28/25 05/28/25 05/28/25 00:02 04:53 05:34 WBC 2.0 L RBC 2.48 L Hgb 8.1 L Hct 25.6 L MCV 103.2 H MCH 32.7 MCHC 31.6 L RDW 16.0 H Plt Count 21 L* MPV 14.4 H % Immature Plt Fraction 7.4 Sodium 131 L Potassium 4.0 Chloride 95 L Carbon Dioxide 34 H Anion Gap 2 L BUN 26 H D Creatinine 6.02 H Estim Creat Clear Calc 12 Estimated GFR 10 L Glucose 98 POC Capillary Glucose 110 H 101 Calcium 9.1 Phosphorus 2.9 Albumin 3.0 L
--- NOTE | 2025-05-28 14:04 | P.PNNP_ITS ---
Progress Note: A&P Assessment and Plan (1) End stage renal disease: Code(s): N18.6 - End stage renal disease Status: Chronic Assessment and Plan: * HD tomorrow * continue M/W/F outpatient dialysis schedule while hospitalized * follow electrolytes, volume status, and clearance (2) Acute respiratory failure: Code(s): J96.00 - Acute respiratory failure, unspecified whether with hypoxia or hypercapnia Status: Resolved Assessment and Plan: * resolved * though to be secondary to a combo of hepatic encephalopathy and pulmonary edema +/- aspiration * emergently intubated on 05/22 following dialysis treatment due to being unresponsive, hypoxic and in respiratory distress * large amount of frothy white secretions seen in the oropharynx and through the ET tube at the time of intubation. * successfully exutbated on 05/24 * CT chest (05/22) showing a new patchy consolidation and ground glass opacities in the dependent bilateral lower lobes most consistent with aspiration and/or pneumonia (3) Pneumonia: Code(s): J18.9 - Pneumonia, unspecified organism Status: Acute Assessment and Plan: * clinical improvement noted * suspect aspiration pneumonia based on 05/22 imaging * repeat imaging demonstrating improvement * on antibiotics * on room air and without SOB at this time (4) Altered mental status: Qualifiers: Altered mental status type: unspecified Qualified Code(s): R41.82 - Altered mental status, unspecified Code(s): R41.82 - Altered mental status, unspecified Status: Acute Assessment and Plan: * clinically better if not resolved * secondary to hepatic encephalopathy and non-compliance with lactulose * elevated ammonia level noted on admission * back on lactulose and added rifaximin (5) Hyperkalemia: Code(s): E87.5 - Hyperkalemia Status: Acute Assessment and Plan: * due to missed dialysis treatments * resolved (6) Cirrhosis: Code(s): K74.60 - Unspecified cirrhosis of liver Status: Acute Assessment and Plan: * known history * secondary to alcohol * has been sober for the last 2 - 3 years * appears stable (7) Hypertension: Code(s): I10 - Essential (primary) hypertension Status: Chronic Assessment and Plan: * well controlled at this time * continue to follow hemodynamics (8) Anemia: Code(s): D64.9 - Anemia, unspecified Status: Chronic Assessment and Plan: * due to ESRD with contributions from liver disease * On Epogen with HD * follow trend of H/H (9) Pancytopenia: Code(s): D61.818 - Other pancytopenia Status: Acute Assessment and Plan: * somewhat of a chronic issue * thought to be secondary to liver disease/increased reticuloendothelial activity * anemia further complicated by ESRD * no heparin with dialysis because of the low platelet count (10) Seizure disorder: Code(s): G40.909 - Epilepsy, unspecified, not intractable, without status epilepticus Status: Acute Assessment and Plan: * known history of seizure disorder * no seizures in several years * on Keppra * no evidence of seizure activity at this time Will continue to follow. L Subjective Date/time seen: 05/28/25 14:04 Interval history: Follow-up for end stage renal disease on hemodialysis. Chart reviewed since last seen -- appears to be doing significantly better; mentation is back to baseline and appears in no acute distress; no other issues/events overnight or earlier this morning; family at bedside and we discussed the situation. Exam 2 Narrative: General: WD/WN male in NAD Heart: normal S1 and S2; no rub Lungs: clear anteriorly Abdomen: soft, nontender, nondistended, positive bowel sounds Extremities: no cyanosis or clubbing; no edema Skin: warm and dry Objective Data Vital Signs Vital Signs: Vital Signs Temp Pulse Resp BP Pulse Ox O2 Del Method 05/28/25 13:55 98.4 F 65 18 118/64 99 05/28/25 08:00 Room Air 05/28/25 07:49 98.1 F 65 16 120/58 L 97 05/27/25 20:40 98.4 F 65 20 113/58 L 97 05/27/25 20:15 Room Air Intake/Output Intake/Output: Intake & Output 05/25/25 05/26/25 05/27/25 05/28/25 23:59 23:59 23:59 23:59 Intake Total 1389 193 3323 1895 Output Total 0 1999 Balance -320 1042 1480 1895 Meds/Results Medications: Active Medications Generic Name Dose Route Start Last Admin Trade Name Freq PRN Reason Stop Dose Admin Amlodipine Besylate 5 mg 05/24/25 10:50 05/28/25 09:53 Amlodipine Besylate 5 Mg Tablet PO 5 mg DAILY DARWIN Administration Dextrose 12.5 gm 05/22/25 12:40 Dextrose 50% 25 Gm/50 Ml Syringe IV PUSH PRN PRN Hypoglycemia Protocol Folic Acid 1 mg 05/26/25 09:00 05/28/25 09:53 Folic Acid 1 Mg Tablet PO 1 mg DAILY DARWIN Administration Glucagon 1 mg 05/22/25 12:40 Glucagon For Inj 1 Mg Vial IM PRN PRN Hypoglycemia Protocol Glucose 15 gm 05/22/25 12:40 Glucose Oral Gel 15 Gm Of Glucse In 37.5 Gm Tube PO PRN PRN Hypoglycemia Protocol Hydralazine HCl 10 mg 05/22/25 00:47 05/22/25 04:18 Hydralazine Hcl 20 Mg/Ml Vial IV PUSH 10 mg Q8H PRN Administration Blood Pressure - High Metronidazole 500 mg in 100 mls @ 100 mls/hr 05/22/25 02:00 05/28/25 14:58 Flagyl 500 Mg/Iso Soln 100 Ml IVPB 100 mls/hr Q8HR DARWIN Administration Ceftriaxone Sodium 2 gm/ 100 mls @ 200 mls/hr 05/22/25 21:00 05/27/25 20:41 Sodium Chloride IVPB Infused Q24H DARWIN Infusion Dextrose 1,000 mls @ 100 mls/hr 05/22/25 12:40 Dextrose 5% 1,000 Ml IVPB PRN PRN Hypoglycemia Protocol Isosorbide Mononitrate 30 mg 05/25/25 09:00 05/28/25 09:53 Isosorbide Mononitrate 30 Mg Tab.Er.24h PO 30 mg QAM DARWIN Administration Lactulose 40 gm 05/25/25 17:00 05/26/25 17:55 Lactulose 20 Gm/30 Ml Udc BY MOUTH 40 gm On Hold: 05/27/25 08:50 TID DARWIN Administration Levetiracetam 250 mg/ 750 mg 05/25/25 21:00 05/28/25 09:54 Levetiracetam 500 mg PO 750 mg Q12HR DARWIN Administration Lidocaine/Prilocaine 1 each 05/22/25 06:26 Lidocaine/Prilocaine Cream 2.5-2.5% Tube TOPICAL WITH DIALYSIS PRN for dialysis Protocol Melatonin 5 mg 05/26/25 21:35 05/27/25 20:11 Melatonin 5 Mg Tablet PO 5 mg HS DARWIN Administration Nadolol 20 mg 05/24/25 11:10 05/28/25 09:53 Nadolol 20 Mg Tablet PO 20 mg QAM DARWIN Administration Ondansetron HCl 4 mg 05/25/25 08:46 Ondansetron Inj 4 Mg/2 Ml Vial IV PUSH Q6H PRN Nausea And Vomiting Pantoprazole Sodium 40 mg 05/25/25 21:00 05/28/25 09:53 Pantoprazole 40 Mg Tablet PO 40 mg Q12HR DARWIN Administration Rifaximin 550 mg 05/25/25 21:00 05/28/25 09:53 Rifaximin 550 Mg Tablet BY MOUTH 550 mg Q12HR DARWIN Administration Sevelamer Carbonate 1,600 mg 05/24/25 12:00 05/28/25 12:11 Sevelamer Carbonate 800 Mg Tablet PO 1,600 mg TIDWM DARWIN Administration Sevelamer Carbonate 800 mg 05/24/25 11:08 Sevelamer Carbonate 800 Mg Tablet PO PRN PRN WITH SNACKS Thiamine HCl 100 mg 05/26/25 09:00 05/28/25 09:53 Thiamine Hcl 100 Mg Tablet PO 100 mg QAM DARWIN Administration Radiology Results: ITS Impressions Abdomen X-Ray 05/22/25 13:09 IMPRESSION: Adequate placement of gastric catheter. Several loops of gas dilated possibly distended small bowel and distended appearance of the gastric bubble. Query if patient has presentation suggestive of ileus or obstruction. Head CT 05/22/25 14:16 IMPRESSION: 1. No acute intracranial findings. Chest/Abdomen/Pelvis CT 05/22/25 14:19 IMPRESSION: 1. New patchy consolidation and groundglass opacities in the dependent bilateral lower lobes most consistent with aspiration and/or pneumonia. 2. Small left and tiny right pleural effusions. 3. Cardiomegaly. 4. Nodular cirrhotic liver with splenomegaly and markedly enlarged splenorenal collaterals consistent with secondary portal venous hypertension. 5. Small amount of ascites scattered throughout the abdomen and pelvis likely related to liver disease. 6. Bilateral nonobstructing nephrolithiasis. Chest X-Ray 05/25/25 07:03 Impression: 1: Developing mild interstitial edema. Labs Labs: Laboratory Tests 05/28/25 04:53 05/28/25 04:53 Calcium 9.1 Phosphorus 2.9 Albumin 3.0 L
[2025-05-28 15:55] VITALS: BP 118/64; PULSE 65; RESP 18; TEMP 36.9; O2SAT 99
[2025-05-28 20:35] VITALS: BP 108/54; PULSE 64; RESP 18; TEMP 36.6; O2SAT 97
[2025-05-28] MEDS: cefTRIAXone 2 GM in SODIUM CHLORIDE 0.9% IV 100 ML 200 ML IVPB (21:54)
[2025-05-28] MEDS: MELATONIN 5 MG TABLET PO (21:54)
[2025-05-29] VITALS (19 sets, daily range): BP systolic 119–139; BP diastolic 43–67; PULSE 60–70; RESP 14–16; TEMP 36.1–37; O2SAT 98–100
[2025-05-29] MEDS: metroNIDAZOLE 500 MG/ISO 100ML 500 MG/100 ML BAG 100 MG IVPB (05:22)
[2025-05-29 07:09] LABS: Hematocrit 26.7 % (42.0-52.0); Hemoglobin 8.9 g/dL (14.0-18.0); Immature Platelet Fraction Pct 8.4 % (0.9-11.2); Mean Corpuscular HGB Conc 33.3 g/dl (32-36); Mean Corpuscular Hemoglobin 33.6 pg (26-34); Mean Corpuscular Volume 100.8 fl (80-100); Platelet Count Result 26 k/mm3 (150-375); Red Blood Count 2.65 M/mm3 (4.6-6.20); White Blood Count 2.7 K/mm3 (4.5-10.0)
[2025-05-29 07:29] LABS: Alanine Aminotransferase 10 U/L (6-50); Albumin Level 3.2 g/dL (3.5-5.1); Alkaline Phosphatase 175 U/L (38-126); Anion Gap 7 mmol/L (4-12); Aspartate Amino Transferase 25 U/L (17-59); Bilirubin,Total 1.1 mg/dL (0.2-1.3); Blood Urea Nitrogen 41 mg/dL (9-20); Calcium 8.9 mg/dL (8.4-10.2); Carbon Dioxide 29 mmol/L (22-30); Chloride 93 mmol/L (98-107); Estimated CRCL calculation 10 ml/min; Estimated Glomerular Filt Rate 8; Glucose 86 mg/dL (65-110); Potassium 4.7 mmol/L (3.4-5.0); Sodium 129 mmol/L (137-145); Total Protein 6.1 g/dL (6.3-8.2)
[2025-05-29] MEDS: SEVELAMER CARBONATE 800 MG TABLET 1600 MG PO ×2 (07:48→12:10)
--- NOTE | 2025-05-29 10:55 | P.PNNP_ITS ---
Progress Note: A&P Assessment and Plan (1) End stage renal disease: Code(s): N18.6 - End stage renal disease Status: Chronic Assessment and Plan: * HD today * continue M/W/F outpatient dialysis schedule while hospitalized * follow electrolytes, volume status, and clearance (2) Acute respiratory failure: Code(s): J96.00 - Acute respiratory failure, unspecified whether with hypoxia or hypercapnia Status: Resolved Assessment and Plan: * resolved * though to be secondary to a combo of hepatic encephalopathy and pulmonary edema +/- aspiration * emergently intubated on 05/22 following dialysis treatment due to being unresponsive, hypoxic and in respiratory distress * large amount of frothy white secretions seen in the oropharynx and through the ET tube at the time of intubation. * successfully exutbated on 05/24 * CT chest (05/22) showing a new patchy consolidation and ground glass opacities in the dependent bilateral lower lobes most consistent with aspiration and/or pneumonia (3) Pneumonia: Code(s): J18.9 - Pneumonia, unspecified organism Status: Acute Assessment and Plan: * clinical improvement noted * suspect aspiration pneumonia based on 05/22 imaging * repeat imaging demonstrating improvement * on antibiotics * on room air and without SOB at this time (4) Altered mental status: Qualifiers: Altered mental status type: unspecified Qualified Code(s): R41.82 - Altered mental status, unspecified Code(s): R41.82 - Altered mental status, unspecified Status: Acute Assessment and Plan: * clinically better if not resolved * secondary to hepatic encephalopathy and non-compliance with lactulose * elevated ammonia level noted on admission * back on lactulose and added rifaximin (5) Hyperkalemia: Code(s): E87.5 - Hyperkalemia Status: Acute Assessment and Plan: * due to missed dialysis treatments * resolved (6) Cirrhosis: Code(s): K74.60 - Unspecified cirrhosis of liver Status: Acute Assessment and Plan: * known history * secondary to alcohol * has been sober for the last 2 - 3 years * appears stable (7) Hypertension: Code(s): I10 - Essential (primary) hypertension Status: Chronic Assessment and Plan: * well controlled at this time * continue to follow hemodynamics (8) Anemia: Code(s): D64.9 - Anemia, unspecified Status: Chronic Assessment and Plan: * due to ESRD with contributions from liver disease * On Epogen with HD * follow trend of H/H (9) Pancytopenia: Code(s): D61.818 - Other pancytopenia Status: Acute Assessment and Plan: * somewhat of a chronic issue * thought to be secondary to liver disease/increased reticuloendothelial activity * anemia further complicated by ESRD * no heparin with dialysis because of the low platelet count (10) Seizure disorder: Code(s): G40.909 - Epilepsy, unspecified, not intractable, without status epilepticus Status: Acute Assessment and Plan: * known history of seizure disorder * on Keppra * no evidence of seizure activity at this time Not opposed to discharge from renal perspective if otherwise medically stable. Will continue to follow. L Subjective Date/time seen: 05/29/25 10:55 Interval history: Follow-up for end stage renal disease on hemodialysis. Tolerating dialysis treatment at the time of my visit (seen on HD at 10:45am); no apparent distress noted when seen -- feels quite well; no issues/events overnight or earlier this morning. Exam 2 Narrative: General: WD/WN male in NAD Heart: normal S1 and S2; no rub Lungs: clear anteriorly Abdomen: soft, nontender, nondistended, positive bowel sounds Extremities: no cyanosis or clubbing; no edema Skin: warm and intact Objective Data Vital Signs Vital Signs: Vital Signs Temp Pulse Resp BP Pulse Ox O2 Del Method 05/29/25 10:45 64 125/66 05/29/25 10:30 66 130/66 05/29/25 10:15 66 129/61 05/29/25 10:00 66 119/55 L 05/29/25 09:45 63 131/64 05/29/25 09:30 65 133/60 05/29/25 09:15 68 124/60 05/29/25 09:00 70 123/65 05/29/25 08:45 60 127/59 L 05/29/25 08:30 62 123/43 L 05/29/25 08:07 61 124/61 05/29/25 07:55 98.4 F 68 16 128/63 98 05/29/25 04:50 97.4 F L 65 14 128/66 100 05/28/25 21:20 Room Air 05/28/25 20:35 97.8 F 64 18 108/54 L 97 05/28/25 15:55 98.4 F 65 18 118/64 99 Intake/Output Intake/Output: Intake & Output 05/26/25 05/27/25 05/28/25 05/29/25 23:59 23:59 23:59 23:59 Intake Total 958 1480 2195 390 Output Total 1999 1999 Balance -1042 1480 2195 -1610 Meds/Results Medications: Active Medications Generic Name Dose Route Start Last Admin Trade Name Freq PRN Reason Stop Dose Admin Amlodipine Besylate 5 mg 05/24/25 10:50 05/29/25 12:11 Amlodipine Besylate 5 Mg Tablet PO 5 mg DAILY DARWIN Administration Dextrose 12.5 gm 05/22/25 12:40 Dextrose 50% 25 Gm/50 Ml Syringe IV PUSH PRN PRN Hypoglycemia Protocol Epoetin Nasir-epbx 10,000 units 05/29/25 18:00 Epoetin Nasir-Epbx 10,000 Units/Ml Vial IV PUSH 05/29/25 18:01 ONCE ONE Folic Acid 1 mg 05/26/25 09:00 05/29/25 12:11 Folic Acid 1 Mg Tablet PO 1 mg DAILY DARWIN Administration Glucagon 1 mg 05/22/25 12:40 Glucagon For Inj 1 Mg Vial IM PRN PRN Hypoglycemia Protocol Glucose 15 gm 05/22/25 12:40 Glucose Oral Gel 15 Gm Of Glucse In 37.5 Gm Tube PO PRN PRN Hypoglycemia Protocol Hydralazine HCl 10 mg 05/22/25 00:47 05/22/25 04:18 Hydralazine Hcl 20 Mg/Ml Vial IV PUSH 10 mg Q8H PRN Administration Blood Pressure - High Dextrose 1,000 mls @ 100 mls/hr 05/22/25 12:40 Dextrose 5% 1,000 Ml IVPB PRN PRN Hypoglycemia Protocol Albumin Human 50 mls @ 999 mls/hr 05/29/25 00:20 Albutein IVPB 06/28/25 00:19 Q10M PRN HYPOTENSION Isosorbide Mononitrate 30 mg 05/25/25 09:00 05/29/25 12:10 Isosorbide Mononitrate 30 Mg Tab.Er.24h PO 30 mg QAM DARWIN Administration Lactulose 40 gm 05/25/25 17:00 05/26/25 17:55 Lactulose 20 Gm/30 Ml Udc BY MOUTH 40 gm On Hold: 05/27/25 08:50 TID DARWIN Administration Levetiracetam 250 mg/ 750 mg 05/25/25 21:00 05/29/25 12:10 Levetiracetam 500 mg PO 750 mg Q12HR DARWIN Administration Lidocaine/Prilocaine 1 each 05/22/25 06:26 Lidocaine/Prilocaine Cream 2.5-2.5% Tube TOPICAL WITH DIALYSIS PRN for dialysis Protocol Melatonin 5 mg 05/26/25 21:35 05/28/25 21:54 Melatonin 5 Mg Tablet PO 5 mg HS DARWIN Administration Nadolol 20 mg 05/24/25 11:10 05/29/25 12:11 Nadolol 20 Mg Tablet PO 20 mg QAM DARWIN Administration Ondansetron HCl 4 mg 05/25/25 08:46 Ondansetron Inj 4 Mg/2 Ml Vial IV PUSH Q6H PRN Nausea And Vomiting Pantoprazole Sodium 40 mg 05/25/25 21:00 05/29/25 12:11 Pantoprazole 40 Mg Tablet PO 40 mg Q12HR DARWIN Administration Rifaximin 550 mg 05/25/25 21:00 05/29/25 12:10 Rifaximin 550 Mg Tablet BY MOUTH 550 mg Q12HR DARWIN Administration Sevelamer Carbonate 1,600 mg 05/24/25 12:00 05/29/25 12:10 Sevelamer Carbonate 800 Mg Tablet PO 1,600 mg TIDWM DARWIN Administration Sevelamer Carbonate 800 mg 05/24/25 11:08 Sevelamer Carbonate 800 Mg Tablet PO PRN PRN WITH SNACKS Thiamine HCl 100 mg 05/26/25 09:00 05/29/25 12:10 Thiamine Hcl 100 Mg Tablet PO 100 mg QAM DARWIN Administration Radiology Results: ITS Impressions Abdomen X-Ray 05/22/25 13:09 IMPRESSION: Adequate placement of gastric catheter. Several loops of gas dilated possibly distended small bowel and distended appearance of the gastric bubble. Query if patient has presentation suggestive of ileus or obstruction. Head CT 05/22/25 14:16 IMPRESSION: 1. No acute intracranial findings. Chest/Abdomen/Pelvis CT 05/22/25 14:19 IMPRESSION: 1. New patchy consolidation and groundglass opacities in the dependent bilateral lower lobes most consistent with aspiration and/or pneumonia. 2. Small left and tiny right pleural effusions. 3. Cardiomegaly. 4. Nodular cirrhotic liver with splenomegaly and markedly enlarged splenorenal collaterals consistent with secondary portal venous hypertension. 5. Small amount of ascites scattered throughout the abdomen and pelvis likely related to liver disease. 6. Bilateral nonobstructing nephrolithiasis. Chest X-Ray 05/25/25 07:03 Impression: 1: Developing mild interstitial edema. Labs Labs: Laboratory Tests 05/29/25 07:01 05/29/25 07:01 Calcium 8.9 Total Bilirubin 1.1 AST 25 ALT 10 Alkaline Phosphatase 175 H Total Protein 6.1 L Albumin 3.2 L
--- NOTE | 2025-05-29 11:31 | P.DS_ITS ---
DS: Admitting Diagnosis Discharge Date 05/29/2025 Admitting Diagnosis acute respiratory failure encephalopathy, hepatic pneumonia cirrhosis pancytopenia pulmonary edema esrd on dialysis esophageal varices seizure DS: Discharge Diagnosis Discharge Diagnosis (1) Acute respiratory failure: Code(s): J96.00 - Acute respiratory failure, unspecified whether with hypoxia or hypercapnia Status: Resolved (2) Encephalopathy, hepatic: Code(s): K72.90 - Hepatic failure, unspecified without coma Status: Acute (3) Pneumonia: Code(s): J18.9 - Pneumonia, unspecified organism Status: Acute (4) Cirrhosis: Code(s): K74.60 - Unspecified cirrhosis of liver Status: Acute (5) Pancytopenia: Code(s): D61.818 - Other pancytopenia Status: Acute (6) Pulmonary edema: Code(s): J81.1 - Chronic pulmonary edema Status: Acute (7) Hypertension: Code(s): I10 - Essential (primary) hypertension Status: Chronic (8) ESRD needing dialysis: Code(s): N18.6 - End stage renal disease; Z99.2 - Dependence on renal dialysis Status: Chronic (9) Esophageal varices in alcoholic cirrhosis: Code(s): K70.30 - Alcoholic cirrhosis of liver without ascites; I85.10 - Secondary esophageal varices without bleeding Status: Acute (10) Seizure disorder: Code(s): G40.909 - Epilepsy, unspecified, not intractable, without status epilepticus Status: Acute DS: Summary Hospital Course Reason for hospitalization: acute respiratory failure encephalopathy, hepatic pneumonia cirrhosis pancytopenia pulmonary edema esrd on dialysis esophageal varices seizure Hospital Course: 59-year-old male with a history of end-stage renal disease (ESRD) on hemodialysis, alcoholic cirrhosis with hepatic encephalopathy, esophageal varices, pancytopenia, hypertension, and seizure disorder, who was admitted for altered mental status after missing two scheduled dialysis sessions. On presentation, he was found to be encephalopathic, unable to answer questions appropriately. Initial labs were notable for hyperkalemia, severe azotemia, hyperammonemia, and marked thrombocytopenia. Imaging revealed chronic liver disease with portal hypertension, moderate ascites, and cardiomegaly with vascular congestion. He was empirically started on ceftriaxone and metronidazole for possible spontaneous bacterial peritonitis, and received medical management for hyperkalemia (Lokelma, D50, insulin, calcium gluconate, sodium bicarbonate) and hepatic encephalopathy (lactulose enemas). Ultrasound-guided paracentesis was ordered but radiologist felt the fluid was too small in amount to be drained. During his first inpatient dialysis session, the patient became unresponsive and hypoxic, requiring emergent intubation and transfer to the ICU. He was found to have acute respiratory failure with pulmonary edema, likely multifactorial from volume overload due to missed dialysis, hepatic encephalopathy, and possible aspiration. Mechanical ventilation was initiated, and he was continued on broad- spectrum antibiotics for aspiration pneumonia, as supported by CT findings of new patchy consolidations and ground-glass opacities in the lower lobes. He also received ongoing management for hepatic encephalopathy with lactulose and rifaximin, with subsequent normalization of ammonia levels and improvement in mental status back to baseline. The patient underwent additional hemodialysis sessions with careful fluid removal, resulting in resolution of pulmonary edema and gradual improvement in renal function parameters. His mentation improved, and he was successfully extubated on hospital day 4. Patient was weaned back to room air with stable saturations throughout remainder of hospitalization. He transitioned from tube feeds to oral diet without difficulty and was able to resume his home medications. His pancytopenia and thrombocytopenia were monitored closely, attributed to underlying cirrhosis and splenic sequestration; no transfusions were required during this admission. Throughout his hospitalization, the patient remained hemodynamically stable, with blood pressure well controlled on oral agents. He tolerated subsequent dialysis sessions without complication and had no further episodes of encephalopathy or respiratory distress. He completed his antibiotic regimen for aspiration pneumonia and prophylactic SBP treatment. He was evaluated by nephrology, gastroenterology, and critical care, and a plan was made for ongoing outpatient management of his cirrhosis and ESRD. He was counseled on the importance of strict adherence to his dialysis schedule and medications. Patient has scheduled follow up at [facility] for further evaluation regarding liver and kidney transplant. At the time of discharge, the patient was at his baseline mental status, ambulating independently, tolerating diet, and without acute complaints. Prior to discharge discussed patient with GI and Nephrology who agree with discharge from their respective perspectives with close follow up. Patient discharged home in a stable condition. He is to follow up with his PCP in 1 week and the specialties as scheduled. Status at Discharge Functional status at discharge: independent ambulation Time Spent with Patient Time attestation: Total time spent providing and/or coordinating discharge services: Time spent: Greater than 30 minutes Exam Narrative: AF HR 68 RR 16 Spo2 99 BP 139/67 General: male in no acute respiratory distress who is nontoxic appearing, lying semi recumbent in bed receiving dialysis. HEENT: Normocephalic. Atraumatic. Extraocular movement intact. Sclera clear and anicteric. No facial asymmetry. Chest: Lungs are clear to auscultation bilaterally. CV: Heart was regular rate and rhythm. Abd: Abdomen was soft. Nontender. Nondistended. Positive bowel sounds. Right inguinal hernia that is nontender and reducible. Ext: No clubbing, cyanosis, or edema. DP pulses bilaterally. Left upper extremity fistula. Neuro: Patient is alert. Speech is clear. DS: Data Data Completed and Pending Completed studies during hospitalization: chest xr chest xr chest xr chest/abdomen/pelvis ct head ct abdomen xr chest xr chest/abdomen/pelvis ct chest xr head ct Labs on day of discharge: Labs from last 24 hours 05/29/25 07:01 WBC 2.7 L RBC 2.65 L Hgb 8.9 L Hct 26.7 L MCV 100.8 H MCH 33.6 MCHC 33.3 RDW 16.2 H Plt Count 26 L MPV 12.5 H % Immature Plt Fraction 8.4 Sodium 129 L Potassium 4.7 Chloride 93 L Carbon Dioxide 29 Anion Gap 7 BUN 41 H D Creatinine 7.42 H Estim Creat Clear Calc 10 Estimated GFR 8 L Glucose 86 Calcium 8.9 Total Bilirubin 1.1 AST 25 ALT 10 Alkaline Phosphatase 175 H Total Protein 6.1 L Albumin 3.2 L Discharge Plan Discharge Attending physician on discharge: Andre Joe Consulting providers: Chitra Dill; Teo Bowen Anoushiravan; Jessica Zuniga Discharging Clinician: Jessica Zuniga Anticipated Discharge Date/Time: 05/29/25 11:22 Patient Disposition: Home Activity: as tolerated Diet: as tolerated and renal Discharge Instructions: Discharge disposition: You were admitted for confusion and mental status changes (hepatic encephalopathy) related to advanced liver disease (cirrhosis), as well as fluid overload due to end-stage renal disease (ESRD) after missing dialysis. 1.?Medications * Lactulose 40 gm threee times a day: * Take as prescribed to achieve 3?4 soft bowel movements per day. * If you have >4 loose stools per day or develop diarrhea, notify your provider. * Rifaximin 550 mg every 12 hours : * Take as prescribed * Other Medications: * Thiamine and folic acid * Avoid nwaz-lvq-gloswll medications, especially NSAIDs (ibuprofen, n aproxen), sedatives, or any new medications without approval. * Medication Dosing: * Attached is information on these medications * Do not change or stop medications without consulting your care team. 2.?Dialysis * Do not miss dialysis sessions. * Missing dialysis can cause fluid overload, confusion, and other life- threatening complications. * Notify your dialysis center immediately?if you are unable to attend a session for any reason. 3.?Diet and Fluid Management * Diet: * Maintain adequate protein intake as recommended by your care team to prevent muscle loss and worsening encephalopathy. * Avoid high-salt foods to help control fluid retention. * Fluid Restriction: * Follow the fluid restriction guidelines provided by your food specialist. * Daily Weights: * Weigh yourself daily and record your weight. * Notify your provider if you gain more than 2?3 pounds in 24 hours or 5 pounds in a week. 4.?Monitoring and Safety * Watch for signs of recurrent hepatic encephalopathy: * Confusion, sleepiness, personality changes, difficulty with coordination, or slurred speech. * Fall Prevention: * Monitor for signs of fluid overload: * Swelling in legs/abdomen, shortness of breath, rapid weight gain. * Infection Prevention: * Report fever, chills, cough, or new pain immediately. 5.?When to Seek Immediate Medical Attention * Severe confusion, inability to wake up, or unresponsiveness * Shortness of breath or chest pain * Severe abdominal pain or swelling * Vomiting blood or black, tarry stools * Not urinating or sudden decrease in urine output 6.?Follow-Up Care * Hepatology and Nephrology: * Follow up with your liver and kidney specialists as scheduled. * Transplant Evaluation: * Keep scheduled appointment at [facility] on Jun 29 to discuss liver and kidney transplant You also have low counts of red blood cells, white blood cells, and platelets (pancytopenia) secondary to end stage renal disease and cirrhosis. This increases your risk for infection, bleeding, and fatigue. Please follow these precautions: Infection Prevention * Wash your hands frequently with soap and water. * Avoid contact with people who are sick or have recently been ill. * Avoid crowded places when possible. * Monitor for signs of infection: fever (temperature >100.4?F/38?C), chills, sore throat, cough, or new pain. * Notify your provider immediately if you develop any signs of infection. Bleeding Precautions * Avoid activities that could cause injury or falls. * Shave with an electric razor, not a blade. * Avoid aspirin, NSAIDs, or other blood-thinning medications unless specifically prescribed. * Monitor for signs of bleeding: easy bruising, nosebleeds, bleeding gums, blood in urine or stool, or prolonged bleeding from cuts. * Notify your provider if you notice any unusual bleeding or bruising. Monitor blood pressures Take caution while standing, rising, or moving Change positions slowly taking a break between each position change If you standing feel dizzy sit back down and take a break Encouraged to continue with yearly vaccinations Return to the emergency department if he developed sudden shortness of breath, chest pain, nausea, vomiting, upset stomach or intractable diarrhea Return to the emergency department if you develop fever greater than 100.5 Follow-up with the primary care physician within 1-2 weeks Thank you for [facility] for your healthcare needs Patient Instructions: Thiamine (By mouth), Folic Acid (By mouth), Lactulose (By mouth), Rifaximin (By mouth), Acute Liver Failure (GEN), Altered Mental Status (GEN), Pneumonia (DC) Patient Language: Icelandic Stand Alone Forms: General Discharge Information Follow-up/Referrals: Chitra Dill MD [Physician, Nephrology] - Call for Appointment Rito Moran MD [Physician, Gastroenterology] - 3 Weeks Efren Ramirez DO [Primary Care Provider, Internal Medicine] - 1 Week Discharge Medications: New Xifaxan 550 mg Tablet 550 mg BYMOUTH Q12HR 30 Days Qty: 60 0RF Continued melatonin 3 mg tablet 9 mg PO HS Rx Instructions: takes 3 tablets at HS levetiracetam 750 mg tablet 750 mg PO Q12H 30 Days Qty: 60 1RF sevelamer carbonate 800 mg tablet 800 mg PO .COMPLEX Patient Comments: 2 tablets tidwm and 1 tablet with a snack Rx Instructions: 800 mg orally; 1-2 tablets before meals amlodipine 5 mg tablet 5 mg PO DAILY omeprazole 40 mg capsule,delayed release(DR/EC) 40 mg PO DAILY isosorbide mononitrate 30 mg Tablet Extended Release 24 Hr 30 mg PO QAM Qty: 30 0RF thiamine HCl (vitamin B1) [Vitamin B-1] 100 mg Tablet 100 mg PO QAM Qty: 30 0RF pantoprazole 40 mg Tablet,Delayed Release (Dr/Ec) 40 mg PO QAM Qty: 30 0RF nadolol 20 mg tablet See Rx Instructions .ROUTE .COMPLEX Qty: 90 3RF Dose Instruction: TAKE 1 TABLET BY MOUTH EVERY DAY Rx Instructions: TAKE 1 TABLET BY MOUTH EVERY DAY lactulose 10 gram/15 mL solution 40 g PO TID Qty: 3000 11RF furosemide 80 mg tablet See Rx Instructions .ROUTE .COMPLEX Qty: 180 3RF Dose Instruction: TAKE 1 TABLET BY MOUTH TWICE DAILY Rx Instructions: TAKE 1 TABLET BY MOUTH TWICE DAILY hydralazine 25 mg tablet See Rx Instructions .ROUTE .COMPLEX Qty: 270 3RF Dose Instruction: TAKE 1 TABLET BY MOUTH THREE TIMES DAILY Rx Instructions: TAKE 1 TABLET BY MOUTH THREE TIMES DAILY folic acid 1 mg tablet See Rx Instructions .ROUTE .COMPLEX Qty: 30 12RF Dose Instruction: TAKE 1 TABLET BY MOUTH ONCE DAILY Rx Instructions: TAKE 1 TABLET BY MOUTH ONCE DAILY Date of admission: 05/22/25 08:04 Primary Care Provider: Efren Ramirez Admitting Provider: Mateo Nelson Attending physician on admission: Mateo Nelson Condition: Stable Hospitalist MIPS Heart Failure (Exclusion) Patient has history of Heart Transplant or Left Ventricular Assistive Device?: No IF YES, STOP HERE Heart Failure (Qualifier) Patient has current or prior documentation of LVEF less than or equal to 40%, or mod/servere depressed LVSF?: No IF NO, STOP HERE
[2025-05-29] MEDS: THIAMINE HCL 100 MG TABLET PO (12:10)
[2025-05-29] MEDS: levETIRAcetam Tablet 250 MG, levETIRAcetam Tablet 500 MG 750 MG PO (12:10)
[2025-05-29] MEDS: ISOSORBIDE MONONITRATE 30 MG TAB.ER.24H PO (12:10)
[2025-05-29] MEDS: FOLIC ACID 1 MG TABLET PO (12:11)
[2025-05-29] MEDS: PANTOPRAZOLE 40 MG TABLET PO (12:11)
--- NOTE | 2025-05-29 14:22 | WPDGIPROGNO ---
Progress Note: A&P Assessment and Plan (1) Cirrhosis, alcoholic: Qualifiers: Ascites presence: without ascites Qualified Code(s): K70.30 - Alcoholic cirrhosis of liver without ascites Code(s): K70.30 - Alcoholic cirrhosis of liver without ascites Status: Acute Assessment and Plan: he was admitted with hepatic encephalopathy, also pulmonary edema after missed dialysis required intubation- significant improvement he is back to his baseline doing much better he can go home and will need to continue with lactulose titrate for 3-4 bm/d and xifaxan bid- this was discussed with hospitalist today tolerating diet follow-up in office 3-4 weeks (2) Encephalopathy, hepatic: Code(s): K72.90 - Hepatic failure, unspecified without coma Status: Acute Assessment and Plan: continue xifaxan and lactulose- titrate to get 3-4 BM/d normalization of ammonia level (3) ESRD needing dialysis: Code(s): N18.6 - End stage renal disease; Z99.2 - Dependence on renal dialysis Status: Chronic Assessment and Plan: by division operations manager (4) Acute respiratory failure: Code(s): J96.00 - Acute respiratory failure, unspecified whether with hypoxia or hypercapnia Status: Resolved Assessment and Plan: extubated few days ago and doing much better (5) Pancytopenia: Code(s): D61.818 - Other pancytopenia Status: Acute Assessment and Plan: stable from cirrhosis Subjective Date/time seen: 05/29/25 11:02 Interval history: doing great, he is ready to go home, tolerating diet and he is in good spirits Review of Systems Review of Systems: All systems reviewed & are unremarkable except as noted in HPI and below Exam Narrative: General: male in no acute respiratory distress who is nontoxic appearing, lying semi recumbent in bed. Neck- supple HEENT: Normocephalic. Atraumatic. Extraocular movement intact. Sclera clear and anicteric. No facial asymmetry. Chest: Lungs are clear to auscultation bilaterally. CV: Heart was regular rate and rhythm. Abd: Abdomen was soft. Nontender. Nondistended. Positive bowel sounds. Ext: No clubbing, cyanosis, or edema. skin: no rash psych: normal affect Neuro: Patient is alert. Speech is clear. Objective Data Vital Signs Vital Signs: Vital Signs - 24 hr 05/28/25 15:55 05/28/25 20:35 05/28/25 21:20 Temperature 98.4 F 97.8 F Pulse Rate 65 64 Respiratory Rate 18 18 Blood Pressure 118/64 108/54 L Pulse Oximetry 99 97 Oxygen Delivery Room Air 05/29/25 04:50 05/29/25 07:55 05/29/25 08:07 Temperature 97.4 F L 98.4 F Pulse Rate 65 68 61 Respiratory Rate 14 16 Blood Pressure 128/66 128/63 124/61 Pulse Oximetry 100 98 Oxygen Delivery 05/29/25 08:30 05/29/25 08:45 05/29/25 09:00 Temperature Pulse Rate 62 60 70 Respiratory Rate Blood Pressure 123/43 L 127/59 L 123/65 Pulse Oximetry Oxygen Delivery 05/29/25 09:15 05/29/25 09:30 05/29/25 09:45 Temperature Pulse Rate 68 65 63 Respiratory Rate Blood Pressure 124/60 133/60 131/64 Pulse Oximetry Oxygen Delivery 05/29/25 10:00 05/29/25 10:15 05/29/25 10:30 Temperature Pulse Rate 66 66 66 Respiratory Rate Blood Pressure 119/55 L 129/61 130/66 Pulse Oximetry Oxygen Delivery 05/29/25 10:45 05/29/25 11:00 05/29/25 11:15 Temperature Pulse Rate 64 66 66 Respiratory Rate Blood Pressure 125/66 122/63 133/65 Pulse Oximetry Oxygen Delivery 05/29/25 11:30 05/29/25 11:39 05/29/25 11:59 Temperature 98.4 F Pulse Rate 67 67 66 Respiratory Rate 16 Blood Pressure 135/67 127/64 139/67 Pulse Oximetry 99 Oxygen Delivery 05/29/25 12:11 Temperature Pulse Rate 68 Respiratory Rate Blood Pressure Pulse Oximetry Oxygen Delivery Intake/Output Intake/Output: Intake & Output 05/26/25 05/27/25 05/28/25 05/29/25 23:59 23:59 23:59 23:59 Intake Total 958 1480 2195 612 Output Total 1999 1999 Balance -1042 1480 2190 -3281 Meds/Results Radiology Results: ITS Impressions Abdomen X-Ray 05/22/25 13:09 IMPRESSION: Adequate placement of gastric catheter. Several loops of gas dilated possibly distended small bowel and distended appearance of the gastric bubble. Query if patient has presentation suggestive of ileus or obstruction. Head CT 05/22/25 14:16 IMPRESSION: 1. No acute intracranial findings. Chest/Abdomen/Pelvis CT 05/22/25 14:19 IMPRESSION: 1. New patchy consolidation and groundglass opacities in the dependent bilateral lower lobes most consistent with aspiration and/or pneumonia. 2. Small left and tiny right pleural effusions. 3. Cardiomegaly. 4. Nodular cirrhotic liver with splenomegaly and markedly enlarged splenorenal collaterals consistent with secondary portal venous hypertension. 5. Small amount of ascites scattered throughout the abdomen and pelvis likely related to liver disease. 6. Bilateral nonobstructing nephrolithiasis. Chest X-Ray 05/25/25 07:03 Impression: 1: Developing mild interstitial edema. Labs Labs: Laboratory Results - last 24 hr 05/29/25 07:01 WBC 2.7 L RBC 2.65 L Hgb 8.9 L Hct 26.7 L MCV 100.8 H MCH 33.6 MCHC 33.3 RDW 16.2 H Plt Count 26 L MPV 12.5 H % Immature Plt Fraction 8.4 Sodium 129 L Potassium 4.7 Chloride 93 L Carbon Dioxide 29 Anion Gap 7 BUN 41 H D Creatinine 7.42 H Estim Creat Clear Calc 10 Estimated GFR 8 L Glucose 86 Calcium 8.9 Total Bilirubin 1.1 AST 25 ALT 10 Alkaline Phosphatase 175 H Total Protein 6.1 L Albumin 3.2 L
== END 2025-05-29 13:30 | disposition home or self-care (01) | DRG 441 ==
LOC: ANHED 17:49 → ANHIMU 21:07 → ANHICU 05-22 12:08 → ANH3MEDSUR 05-25 18:06
PROVIDERS: Emergency Medicine; General Practice; Internal Medicine; Internal Medicine Nephrology; Nurse Practitioner; Nurse Practitioner Family; Admitting Provider Internal Medicine; PCP Internal Medicine; Visit Provider Student in an Organized Health Care Education/Training Program
DX: K76.82 Hepatic encephalopathy (principal); J69.0 Pneumonitis due to inhalation of food and vomit; J96.01 Acute respiratory failure with hypoxia; N18.6 End stage renal disease; I13.2 Hypertensive heart and chronic kidney disease with heart failure and with stage 5 chronic kidney disease, or end stage renal disease; D61.818 Other pancytopenia; I85.10 Secondary esophageal varices without bleeding; E72.20 Disorder of urea cycle metabolism, unspecified; E87.79 Other fluid overload; Z91.158 Patient's noncompliance with renal dialysis for other reason; K70.30 Alcoholic cirrhosis of liver without ascites; R40.4 Transient alteration of awareness; I50.9 Heart failure, unspecified; G40.909 Epilepsy, unspecified, not intractable, without status epilepticus; E87.5 Hyperkalemia; I34.0 Nonrheumatic mitral (valve) insufficiency; I35.0 Nonrheumatic aortic (valve) stenosis; D63.1 Anemia in chronic kidney disease; N25.0 Renal osteodystrophy; Z99.2 Dependence on renal dialysis; Z87.891 Personal history of nicotine dependence; Z80.0 Family history of malignant neoplasm of digestive organs; Z86.0100 Personal history of colon polyps, unspecified
CPT/HCPCS: 31500; 36415; 36600; 70450; 71045; 71250; 74176; 80048; 80053; 80069; 80076; 80321; 82140; 82375; 82805; 82948; 83050; 83735; 84100; 84478; 85018; 85025; 85027; 85055; 85610; 85730; 86850; 86900; 86901; 87641; 93005; 94002; 94003; 96365; 96375; 97162; 99285; A9270; G0257; G0378; G0480; J0360; J0612; J0616; J0696; J1815; J1836; J1953; J2250; J2470; J2704; J3411; J7030; Q4081; Q5105

== ENCOUNTER 2025-06-16 12:24 | Outpatient (CLI) | payer MEDICARE, SELFPAY ==
[2025-06-16 12:59] LABS: Ammonia 66 umol/L (9-30)
--- OUTSIDE RECORDS SUMMARY | 2025-06-16 14:24 | XMS_ITS | Encounter Summary ---
Author Organization [facility] Health Address [address] [place] [address] Care Team Providers Care Inside Sales Recruiter Name Role Phone Dm Pena MD Primary Care Provider [phone] Efren Ramirez DO Primary Care Provider [phone] Encounter Details Date Type Department Care Team (Late st Contact Info) Description 03/09/2020 Telephone [facility] [address] [place] [address] Kiko Pena MD [address] [place] [address] Social History Tobacco Use Types Packs/Day Years [...] Under Investigation 07/19/2021 07/19/2021 07/19/2021 1:09 PM MACHINE SEWER COVID-19 Confirmed 07/19/2021 07/19/2021 4:33 AM MACHINE SEWER COVID-19 Under Investigation 10/29/2023 10/29/2023 10/29/2023 9:28 AM CDT COVID-19 Under Investigation 09/22/2024 09/22/2024 09/22/2024 12:05 PM CDT documented as of this encounter Care Teams Inside Sales Recruiter Relationship Specialty Start Date End Date Dm Pena MD [address] [id number] PCP - General Family Medicine 02/06/19 06/11/24 Efren Ramirez DO [address] [place] [id number] PCP - General Internal Medicine 06/12/24 documented as of this encounter
--- OUTSIDE RECORDS SUMMARY | 2025-06-16 14:24 | XMS_ITS | Clinical Summary ---
Author Organization [facility] Address [address] [place] [phone] Phone Care Team Providers Care Personal Injury Legal Assistant Name Role Phone SchaeferLonnie avalos Primary Care Provider [phone] Allergies No known active allergies Medications amLODIPine [...] night if needed Active ergocalciferol (VITAMIN D-2) 82107 units capsule Take 50,000 Units by mouth [...] on file Legal Sex Male 7:57 AM [facility] Gender Identity Not on file Sexual [...] Influenza Vaccine (#1) 2025 04/27/2017, 2014 Insurance [facility] [place] [address] Care Teams Personal Injury Legal Assistant Relationship Specialty Start Date End Date Lonnie Schaefer DO [address] [place] [phone] PCP - General 02/21/19
--- OUTSIDE RECORDS SUMMARY | 2025-06-16 14:24 | XMS_ITS | Encounter Summary ---
Author Organization [facility] Address [address] [place] [address] Phone Care Team Providers Care Puller Over Name Role Phone Lonnie Schaefer DO Primary Care Provider [phone] Encounter Details Date Type Department Care Team (Late st Contact Info) Description 04/20/2022 [facility] Nephrology and Hypertension [address] [facility], [address] [place] [address] Aleja Norris RN Social History Tobacco Use Types Packs/Day Years Used Date Smoking Tobacco: Never Smokeless Tobacco: Never Alcohol Use Standard Drinks/Week Comments Yes 0 (1 standard drink = 0.6 oz pure alcohol) Alcoholic Drinks/day: has recently quit, was a very heavy drinker Sex and Gender Information Value Date Recorded Sex Assigned at Not on file Legal Sex Male 7:57 AM [facility] Gender Identity Not on file Sexual [...] on filedocumented in this encounter Care Teams Puller Over Relationship Specialty Start Date End Date Lonnie Schaefer DO [address] [place] [phone] PCP - General 02/21/19 documented as of this encounter
--- OUTSIDE RECORDS SUMMARY | 2025-06-16 14:26 | XMS_ITS | Clinical Summary ---
Author Organization [facility] Address [address] [place] [address] Phone Care Team Providers Care Bakery Supervisor Name Role Phone Unavailable Primary Care Provider [...] Combined Discontinued 11/02/2021 Human Papillomavirus (HPV) Immunization (No Doses Required) Completed Meningococcal Immunization (ACWY) Aged Out No longer eligible based on patient's age to complete this topic Rotavirus Immunization Aged Out No lo nger eligible based on patient's age to complete this topic
--- OUTSIDE RECORDS SUMMARY | 2025-06-16 14:26 | XMS_ITS | Encounter Summary ---
Author Organization [facility] Address [facility] [place] [address] Care Team Providers Care Can Filling And Closing Machine Tender Name Role Phone Lonnie Schaefer DO Primary Care Provider [phone] Dm Pena MD Primary Care Provider [phone] Encounter Details Date Type Department Care Team (Late st Contact Info) Description 09/15/2017 Abstract [facility] CONVERSION [address] [place] [address] , Generic Conversion, Social History Tobacco Use [...] on filedocumented in this encounter Care Teams Can Filling And Closing Machine Tender Relationship Specialty Start Date End Date Lonnie Schaefer DO [address] [place] [address] PCP - General 11/17/14 10/22/18 Dm Pena MD [address] [phone] PCP - General FAMILY PRACTICE 10/23/18 documented as of this encounter
--- OUTSIDE RECORDS SUMMARY | 2025-06-16 14:26 | XMS_ITS ---
Author Organization [facility] [place] [facility] Address [address] [place] [address] Care Team Providers Care Pastoral Assistant Name Role Phone Dm Pena MD Primary Care Provider + [phone] Hermelindo Avilez MD Unavailable [phone] Milla Calero RN Unavailable Melecio Graves MD Unavailable [phone] Nupur Shea RN Unavailable Unavailabl e Transplant Episode Liver Candidate [facility] ([place], [place]) - [facility] Evaluation began on 09/30/2024 Marked as Active on 09/30/2024 Reason: Evaluation - Standard Liver CoordinatorMilla Calero RN Fax: N/A Email: N/A [place] Organ Diagnosis Organ Primary Contributory Liver Alcoholic Cirrhosis Care Team Name Role Phone Fax Email Milla Calero RN Liver Coordinator [phone] N/A N/A Melecio Graves MD Referring Physician [phone] N/A Mckenzie Ibarra Primary Wood Grinder N/A N/A N/A Sena Luque [employer] [phone] N/A N/A Cyndi Maxwell RN Secondary Coordinator [phone] N/A Events Pre-Transplant Referred: 09/10/2024 Evaluation began: 09/30/2024 Dialysis History Dialysis History Start End Type Comments Center 03/14/2019 In-center Hemodialysis MWF 5:30AM-9A M [facility] Dialysis Center Information Center Phone Fax Address [facility] [phone] [facility] [id number]
--- OUTSIDE RECORDS SUMMARY | 2025-06-16 14:26 | XMS_ITS ---
Author Organization [facility] Nakita desouza ([facility]) Address [address] [place] [address] Care Team Providers Care Order Fulfillment Specialist Name Role Phone Unavailable Unavailable Unavailable Allergies, Adverse Reactions, Alerts Allergy Name Allergy Type Status Severity Reaction(s) Onset Date Inactive Date Treating Clinician Comments Heparin Allergy Active Intolerance 2022-04 05:00:0 0 Medications Ordered Medication Name Filled Medication Name Start Date Stop Date Current Medication? Ordering Clinician Indication Dosage Frequency Signature (SIG) Comments Components Mircera 2024-07 15:54: 38 Yes [id number] Number of Repeats Allowed: Frequency: ISABELL dosing, every two weeks calcitriol 2024-07 17:01: 45 Yes [id number] Number of Repeats Allowed: Frequency: Three times a week cinacalcet hydrochlori de 03-12 05:00: 00 Yes [id number] Number of Repeats Allowed: Frequency: Three times a week ONS [facility] 10-20 15:14: 48 Yes [id number] Number of Repeats Allowed: Frequency: Every Dialysis Treatment acetaminoph en 2021-07 06:00: 00 Yes [id number] Number of Repeats Allowed: Frequency: Every 4 hours as needed clonidine 2021-07 06:00: 00 Yes [id number] Number of Repeats Allowed: Frequency: Every 4 hours as needed Normal Saline Solution 0.9% NaCl 2021-07 06:00: 00 Yes [id number] Number of Repeats Allowed: Frequency: As needed diphenhydra mine hydrochlori de 2021-07 06:00: 00 Yes [id number] Number of Repeats Allowed: Frequency: Every 4 hours as needed diphenhydra mine hydrochlori de 2021-07 06:00: 00 Yes [id number] Number of Repeats Allowed: Frequency: Every 4 hours as needed ondansetron hydrochlori de 2021-07 06:00: 00 Yes [id number] Number of Repeats Allowed: Frequency: Every 4 hours as needed EpiPen 2-Tato 2021-07 06:00: 00 Yes [id number] Number of Repeats Allowed: Frequency: Every 4 hours as needed Oxygen 2021-07 06:00: 00 Yes [id number] Number of Repeats Allowed: Frequency: As needed [...] Gain BFR DFR Actual [facility]F Dialysis Access Decem 2024 In-Ce nter Hemod ialys is Treat ment 2025-06-15 T12:42:00. 000Z 2025-06-15 T16:43:00. 000Z BP Sitting (Pre-Dialysis) 155/71 mmHg BP Sitting (Post-D ialysis ) 140/ 67 mmHg BP Standing (Pre-Dialysis) 179/80 mmHg BP Standing (P ost-Dialysis) 144/68 mmHg Sitting Heart Rate Pre-Dialysis 60 BPM Sitting Heart Rate Post-Dialysis 59 BPM Standing Heart Rate Pre-Dialysis 62 BPM Standing Heart Rate Post-Dialysis 65 BPM Temperature Pre-Dialysis 98.6 degF Temperature Post -Dialysis 98.8 degF June 12, 2025 In-Center Hemodialysis Treatment 2558-70-14K30:57:00.000Z 4926-12-64T29:57:00.000Z BP Sitting (Pre-Dialysis) 122/68 mmHg BP Sitting (Post-Dialysis) 116/55 mmHg Concurrent Access: falseAV Graft Upper Arm (Left) Arterial BP Standing (Pre-Dialysis) 127/63 mmHg BP Standing (P ost-Dialysis) 123/68 mmHg Sitting Heart Rate Pre-Dialysis 64 BPM Sitting Heart Rate Post-Dialysis 77 BPM Standing Heart Rate Pre-Dialysis 68 BPM Standing Heart Rate Post-Dialysis 78 BPM Temperature Pre-Dialysis 98.1 degF Temperature Post -Dialysis 97.3 degF June 10, 2025 In-Center Hemodialysis Treatment 2391-45-78E10:06:00.000Z 5416-51-53D27:18:53.000Z BP Sitting (Pre-Dialysis) 118/61 mmHg BP Sitting (Post-Dialysis) 122/62 mmHg Concurrent Access: falseAV Graft Upper Arm (Left) Arterial BP Standing (Pre-Dialysis) 131/67 mmHg Sitting Heart Rate Post-Dialysis 64 BPM Sitting Heart Rate Pre-Dialysis 66 BPM Temperatu re Post-Dialysis 99 degF Standing Heart Rate Pre-Dialysis 69 BPM Temperature Pre-Dialysis 98.3 degF June 08, 2025 In-Center Hemodialysis Treatment 4520-15-15D81:05:00.000Z 7647-55-36G74:47:51.000Z BP Sitting (Pre-Dialysis) 125/60 mmHg BP Sitting (Post-Dialysis) 107/60 mmHg Concurrent Access: falseAV Graft Upper Arm (Left) Arterial BP Standing (Pre-Dialysis) 115/63 mmHg BP Standing (P ost-Dialysis) 96/55 mmHg Sitting Heart Rate Pre-Dialysis 66 BPM Sitting Heart Rate Post-Dialysis 64 BPM Standing Heart Rate Pre-Dialysis 82 BPM Standing Heart Rate Post-Dialysis 66 BPM Temperature Pre-Dialysis 98.3 degF Temperature Post -Dialysis 98.7 degF June 05, 2025 In-Center Hemodialysis Treatment [id number]:59:00.000Z 1643-01-47X23:58:00.000Z BP Sitting (Pre-Dialysis) 116/58 mmHg BP Sitting (Post-Dialysis) 101/51 mmHg Concurrent Access: falseAV Graft Upper Arm (Left) Arterial BP Standing (Pre-Dialysis) 121/70 mmHg Sitti ng Heart Rate Post-Dialysis 67 BPM Sitting Heart Rate Pre-Dialysis 86 BPM Temperatu re Post-Dialysis 99.6 degF Standing Heart Rate Pre-Dialysis 89 BPM Temperature Pre-Dialysis 98.7 degF June 03, 2025 In-Center Hemodialysis Treatment 3487-65-20A04:00:00.000Z 8922-52-45B99:01:00.000Z BP Sitting (Pre-Dialysis) 155/74 mmHg BP Sitting (Post-Dialysis) 119/58 mmHg Concurrent Access: falseAV Graft Upper Arm (Left) Arterial BP Standing (Pre-Dialysis) 158/78 mmHg BP Standing (P ost-Dialysis) 130/63 mmHg Sitting Heart Rate Pre-Dialysis 75 BPM Sitting Heart Rate Post-Dialysis 68 BPM Standing Heart Rate Pre-Dialysis 79 BPM Standing Heart Rate Post-Dialysis 73 BPM Temperature Pre-Dialysis 99.2 degF Temperature Post -Dialysis 98.8 degF June 01, 2025 In-Center Hemodialysis Treatment 5757-63-74C98:08:00.000Z 8310-66-66S92:05:00.000Z BP Sitting (Pre-Dialysis) 129/72 mmHg BP Sitting (Post-Dialysis) 116/69 mmHg Concurrent Access: falseAV Graft Upper Arm (Left) Arterial Sitting Heart Rate Pre-Dialysis 70 BPM BP Standing (Post-Dialysis) 102/57 mmHg Temperature Pre-Dialysis 98.6 degF Sitting Heart Ra te Post-Dialysis 73 BPM Standing Heart Rate Post-Cate lysis 72 BPM Temperature Post-Dialysis 99 degF May 15, 2025 In-Center Hemodialysis Treatment 0064-10-78F43:00:00.000Z 4609-08-26R43:00:00.000Z BP Sitting (Pre-Dialysis) 140/71 mmHg BP Sitting (Post-Dialysis) 162/73 mmHg Concurrent Access: falseAV Graft Upper Arm (Left) Arterial BP Standing (Pre-Dialysis) 145/75 mmHg BP Standing (P ost-Dialysis) 141/66 mmHg Sitting Heart Rate Pre-Dialysis 61 BPM Sitting Heart Rate Post-Dialysis 61 BPM Standing Heart Rate Pre-Dialysis 66 BPM Standing Heart Rate Post-Dialysis 65 BPM Temperature Pre-Dialysis 98.7 degF Temperature Post -Dialysis 99.1 degF May 13, 2025 In-Center Hemodialysis Treatment 6839-35-87O93:01:00.000Z 0729-53-48N51:01:25.000Z BP Sitting (Pre-Dialysis) 158/75 mmHg BP Sitting (Post-Dialysis) 143/71 mmHg Concurrent Access: falseAV Graft Upper Arm (Left) Arterial BP Standing (Pre-Dialysis) 166/74 mmHg BP Standing (P ost-Dialysis) 163/101 mmHg Sitting Heart Rate Pre-Dialysis 64 BPM Sitting Heart Rate Post-Dialysis 66 BPM Standing Heart Rate Pre-Dialysis 65 BPM Standing Heart Rate Post-Dialysis 69 BPM Temperature Pre-Dialysis 98.6 degF Temperature Post -Dialysis 99.6 degF May 12, 2025 In-Center Hemodialysis Treatment 8189-61-30U01:01:00.000Z 8404-95-15P15:56:40.000Z BP Sitting (Pre-Dialysis) 166/80 mmHg BP Sitting (Post-Dialysis) 170/82 mmHg Concurrent Access: falseAV Graft Upper Arm (Left) Arterial BP Standing (Pre-Dialysis) 181/86 mmHg BP Standing (P ost-Dialysis) 176/88 mmHg Sitting Heart Rate Pre-Dialysis 68 BPM Sitting Heart Rate Post-Dialysis 84 BPM Standing Heart Rate Pre-Dialysis 68 BPM Standing Heart Rate Post-Dialysis 84 BPM Temperature Pre-Dialysis 97.6 degF Temperature Post -Dialysis 97.7 degF May 08, 2025 In-Center Hemodialysis Treatment 1980-74-92S85:00:00.000Z 4708-11-14F10:11:02.000Z BP Sitting (Pre-Dialysis) 138/66 mmHg BP Sitting (Post-Dialysis) 122/64 mmHg Concurrent Access: falseAV Graft Upper Arm (Left) Arterial Sitting Heart Rate Pre-Dialysis 70 BPM Sitting H eart Rate Post-Dialysis 71 BPM Temperature Pre-Dialysis 98.3 degF Temperature Post -Dialysis 97.6 degF May 02, 2025 In-Center Hemodialysis Treatment 6364-87-68A76:29:00.000Z 8818-77-36B77:46:48.000Z BP Sitting (Pre-Dialysis) 154/74 mmHg BP Sitting (Post-Dialysis) 184/83 mmHg Concurrent Access: falseAV Graft Upper Arm (Left) Arterial BP Standing (Pre-Dialysis) 179/89 mmHg Sitti ng Heart Rate Post-Dialysis 61 BPM Sitting Heart Rate Pre-Dialysis 56 BPM Temperatu re Post-Dialysis 98.1 degF Standing Heart Rate Pre-Dialysis 57 BPM Temperature Pre-Dialysis 98.3 degF April 29, 2025 In-Center Hemodialysis Treatment 4731-75-18A60:07:00.000Z 8345-22-36K88:10:02.000Z BP Sitting (Pre-Dialysis) 166/74 mmHg BP Sitting (Post-Dialysis) 175/83 mmHg Concurrent Access: falseAV Graft Upper Arm (Left) Arterial BP Standing (Pre-Dialysis) 171/77 mmHg BP Standing (P ost-Dialysis) 177/65 mmHg Sitting Heart Rate Pre-Dialysis 55 BPM Sitting Heart Rate Post-Dialysis 55 BPM Standing Heart Rate Pre-Dialysis 57 BPM Standing Heart Rate Post-Dialysis 59 BPM Temperature Pre-Dialysis 98.2 degF Temperature Post -Dialysis 98.4 degF April 24, 2025 In-Center Hemodialysis Treatment 1520-85-35K72:10:27.000Z 9706-60-64Z53:10:27.000Z BP Sitting (Pre-Dialysis) 154/70 mmHg BP Sitting (Post-Dialysis) 162/69 mmHg Concurrent Access: falseAV Graft Upper Arm (Left) Arterial BP Standing (Pre-Dialysis) 168/77 mmHg Sitti ng Heart Rate Post-Dialysis 58 BPM Sitting Heart Rate Pre-Dialysis 54 BPM Temperatu re Post-Dialysis 97.8 degF Standing Heart Rate Pre-Dialysis 56 BPM Temperature Pre-Dialysis 98.5 degF April 23, 2025 In-Center Hemodialysis Treatment 5984-11-19Z76:11:21.000Z 6505-23-20L59:15:06.000Z BP Sitting (Pre-Dialysis) 159/68 mmHg BP Sitting (Post-Dialysis) 173/78 mmHg Concurrent Access: falseAV Graft Upper Arm (Left) Arterial BP Standing (Pre-Dialysis) 160/75 mmHg Sitti ng Heart Rate Post-Dialysis 60 BPM Sitting Heart Rate Pre-Dialysis 52 BPM Temperatu re Post-Dialysis 98.1 degF Standing Heart Rate Pre-Dialysis 55 BPM Temperature Pre-Dialysis 98.5 degF April 20, 2025 In-Center Hemodialysis Treatment 6025-12-14O69:05:30.000Z 3791-88-65U92:34:15.000Z BP Sitting (Pre-Dialysis) 183/77 mmHg BP Sitting (Post-Dialysis) 164/75 mmHg Concurrent Access: falseAV Graft Upper Arm (Left) Arterial BP Standing (Pre-Dialysis) 177/74 mmHg BP Standing (P ost-Dialysis) 173/75 mmHg Sitting Heart Rate Pre-Dialysis 60 BPM Sitting Heart Rate Post-Dialysis 58 BPM Standing Heart Rate Pre-Dialysis 59 BPM Standing Heart Rate Post-Dialysis 61 BPM Temperature Pre-Dialysis 98.4 degF Temperature Post -Dialysis 98.4 degF April 17, 2025 In-Center Hemodialysis Treatment 1122-66-33I49:56:00.000Z 2814-53-52B90:11:34.000Z BP Sitting (Pre-Dialysis) 151/67 mmHg BP Sitting (Post-Dialysis) 163/72 mmHg Concurrent Access: falseAV Graft Upper Arm (Left) Arterial BP Standing (Pre-Dialysis) 141/66 mmHg Sitti ng Heart Rate Post-Dialysis 57 BPM Sitting Heart Rate Pre-Dialysis 60 BPM Temperatu re Post-Dialysis 97.7 degF Standing Heart Rate Pre-Dialysis 62 BPM Temperature Pre-Dialysis 98.8 degF April 14, 2025 In-Center Hemodialysis Treatment 6248-53-38B80:20:32.000Z 9740-80-32M00:20:32.000Z BP Sitting (Pre-Dialysis) 152/80 mmHg BP Sitting (Post-Dialysis) 145/71 mmHg Concurrent Access: falseAV Graft Upper Arm (Left) Arterial BP Standing (Pre-Dialysis) 175/95 mmHg BP Standing (P ost-Dialysis) 142/66 mmHg Sitting Heart Rate Pre-Dialysis 79 BPM Sitting Heart Rate Post-Dialysis 60 BPM Standing Heart Rate Pre-Dialysis 81 BPM Standing Heart Rate Post-Dialysis 54 BPM Temperature Pre-Dialysis 98.6 degF Temperature Post -Dialysis 98.9 degF April 10, 2025 In-Center Hemodialysis Treatment 2877-52-48U50:04:56.000Z 7576-67-35E12:04:56.000Z BP Sitting (Pre-Dialysis) 162/83 mmHg BP Sitting (Post-Dialysis) 184/79 mmHg Concurrent Access: falseAV Graft Upper Arm (Left) Arterial BP Standing (Pre-Dialysis) 175/92 mmHg BP Standing (P ost-Dialysis) 174/80 mmHg Sitting Heart Rate Pre-Dialysis 81 BPM Sitting Heart Rate Post-Dialysis 59 BPM Standing Heart Rate Pre-Dialysis 82 BPM Standing Heart Rate Post-Dialysis 60 BPM Temperature Pre-Dialysis 98.7 degF Temperature Post -Dialysis 98.9 degF April 06, 2025 In-Center Hemodialysis Treatment 7918-90-34W63:22:00.000Z 0299-58-59K79:23:33.000Z BP Sitting (Pre-Dialysis) 141/68 mmHg BP Sitting (Post-Dialysis) 140/64 mmHg Concurrent Access: falseAV Graft Upper Arm (Left) Arterial BP Standing (Pre-Dialysis) 152/66 mmHg BP Standing (P ost-Dialysis) 151/73 mmHg Sitting Heart Rate Pre-Dialysis 55 BPM Sitting Heart Rate Post-Dialysis 55 BPM Standing Heart Rate Pre-Dialysis 56 BPM Standing Heart Rate Post-Dialysis 56 BPM Temperature Pre-Dialysis 98.1 degF Temperature Post -Dialysis 98.1 degF April 04, 2025 In-Center Hemodialysis Treatment [id number]:37:00.000Z 2172-99-76F02:39:30.000Z BP Sitting (Pre-Dialysis) 176/80 mmHg BP Sitting (Post-Dialysis) 166/60 mmHg Concurrent Access: falseAV Graft Upper Arm (Left) Arterial BP Standing (Pre-Dialysis) 182/84 mmHg BP Standing (P ost-Dialysis) 167/70 mmHg Sitting Heart Rate Pre-Dialysis 55 BPM Sitting Heart Rate Post-Dialysis 55 BPM Standing Heart Rate Pre-Dialysis 59 BPM Standing Heart Rate Post-Dialysis 57 BPM Temperature Pre-Dialysis 98 degF Temperature Post -Dialysis 98.7 degF April 03, 2025 In-Center Hemodialysis Treatment 400 mL/min 500 mL/min Concurrent Access: false March 30, 2025 In-Center Hemodialysis Treatment 20 25 -0 T1 0: 07 :0 8. 00 0Z 20 25 -0 T1 3: 30 :2 8. 00 0Z BP Sitting (Pre-Dial ysis) 152/75 mmHg BP Sitting (Post-Cate lysis) 140/6 2 mmHg Concurrent Access: falseAV Graft Upper Arm (Left) Arterial BP Standing (Pre-Dialysis) 158/83 mmHg Sitti ng Heart Rate Post-Dialysis 59 BPM Sitting Heart Rate Pre-Dialysis 70 BPM Temperatu re Post-Dialysis 98.6 degF Standing Heart Rate Pre-Dialysis 73 BPM Temperature Pre-Dialysis 98 degF March 27, 2025 In-Center Hemodialysis Treatment 1313-37-06W96:05:57.000Z 6830-18-76X29:09:17.000Z BP Sitting (Pre-Dialysis) 176/75 mmHg BP Sitting (Post-Dialysis) 133/66 mmHg Concurrent Access: falseAV Graft Upper Arm (Left) Arterial BP Standing (Pre-Dialysis) 185/82 mmHg BP Standing (P ost-Dialysis) 156/77 mmHg Sitting Heart Rate Pre-Dialysis 60 BPM Sitting Heart Rate Post-Dialysis 61 BPM Standing Heart Rate Pre-Dialysis 64 BPM Standing Heart Rate Post-Dialysis 63 BPM Temperature Pre-Dialysis 98.4 degF Temperature Post -Dialysis 98.3 degF March 25, 2025 In-Center Hemodialysis Treatment 7424-97-60G16:10:00.000Z 8263-48-20Q00:11:37.000Z BP Sitting (Pre-Dialysis) 163/74 mmHg BP Sitting (Post-Dialysis) 150/72 mmHg Concurrent Access: falseAV Graft Upper Arm (Left) Arterial BP Standing (Pre-Dialysis) 170/73 mmHg BP Standing (P ost-Dialysis) 164/81 mmHg Sitting Heart Rate Pre-Dialysis 54 BPM Sitting Heart Rate Post-Dialysis 62 BPM Standing Heart Rate Pre-Dialysis 55 BPM Standing Heart Rate Post-Dialysis 61 BPM Temperature Pre-Dialysis 97.9 degF Temperature Post -Dialysis 98.3 degF March 20, 2025 In-Center Hemodialysis Treatment 3793-23-00V38:05:16.000Z 8356-04-97M10:33:11.000Z BP Sitting (Pre-Dialysis) 135/62 mmHg BP Sitting (Post-Dialysis) 131/68 mmHg Concurrent Access: falseAV Graft Upper Arm (Left) Arterial BP Standing (Pre-Dialysis) 142/76 mmHg BP Standing (P ost-Dialysis) 147/67 mmHg Sitting Heart Rate Pre-Dialysis 57 BPM Sitting Heart Rate Post-Dialysis 58 BPM Standing Heart Rate Pre-Dialysis 63 BPM Standing Heart Rate Post-Dialysis 63 BPM Temperature Pre-Dialysis 98.1 degF Temperature Post -Dialysis 98.7 degF March 18, 2025 In-Center Hemodialysis Treatment 0078-29-47S08:02:53.000Z 2654-21-05B06:02:38.000Z BP Sitting (Pre-Dialysis) 137/64 mmHg BP Sitting (Post-Dialysis) 137/62 mmHg Concurrent Access: falseAV Graft Upper Arm (Left) Arterial BP Standing (Pre-Dialysis) 152/71 mmHg BP Standing (P ost-Dialysis) 138/69 mmHg Sitting Heart Rate Pre-Dialysis 62 BPM Sitting Heart Rate Post-Dialysis 70 BPM Standing Heart Rate Pre-Dialysis 62 BPM Standing Heart Rate Post-Dialysis 64 BPM Temperature Pre-Dialysis 98.2 degF Temperature Post -Dialysis 98.3 degF March 16, 2025 In-Center Hemodialysis Treatment 9333-33-89A70:00:34.000Z 7355-14-93O31:31:07.000Z BP Sitting (Pre-Dialysis) 176/79 mmHg BP Sitting (Post-Dialysis) 133/61 mmHg Concurrent Access: falseAV Graft Upper Arm (Left) Arterial BP Standing (Pre-Dialysis) 157/78 mmHg BP Standing (P ost-Dialysis) 151/66 mmHg Sitting Heart Rate Pre-Dialysis 65 BPM Sitting Heart Rate Post-Dialysis 57 BPM Standing Heart Rate Pre-Dialysis 66 BPM Standing Heart Rate Post-Dialysis 60 BPM Temperature Pre-Dialysis 98.6 degF Temperature Post -Dialysis 98.4 degF March 14, 2025 In-Center Hemodialysis Treatment 6118-38-31M16:10:48.000Z 5524-68-64Z21:19:08.000Z BP Sitting (Pre-Dialysis) 150/62 mmHg BP Sitting (Post-Dialysis) 135/71 mmHg Concurrent Access: falseAV Graft Upper Arm (Left) Arterial BP Standing (Pre-Dialysis) 152/75 mmHg Sitting Heart Rate Post-Dialysis 61 BPM Sitting Heart Rate Pre-Dialysis 64 BPM Temperatu re Post-Dialysis 98 degF Standing Heart Rate Pre-Dialysis 66 BPM Temperature Pre-Dialysis 98.5 degF March 11, 2025 In-Center Hemodialysis Treatment 8460-48-40A97:01:26.000Z 3676-75-79G01:01:26.000Z BP Sitting (Pre-Dialysis) 132/65 mmHg BP Sitting (Post-Dialysis) 140/64 mmHg Concurrent Access: falseAV Graft Upper Arm (Left) Arterial BP Standing (Pre-Dialysis) 124/69 mmHg BP Standing (P ost-Dialysis) 146/53 mmHg Sitting Heart Rate Pre-Dialysis 52 BPM Sitting Heart Rate Post-Dialysis 55 BPM Standing Heart Rate Pre-Dialysis 53 BPM Standing Heart Rate Post-Dialysis 55 BPM Temperature Pre-Dialysis 98.1 degF Temperature Post -Dialysis 98.7 degF March 09, 2025 In-Center Hemodialysis Treatment 4877-51-15S17:04:00.000Z 9239-23-03G96:30:00.000Z BP Sitting (Pre-Dialysis) 137/77 mmHg BP Sitting (Post-Dialysis) 109/53 mmHg Concurrent Access: falseAV Graft Upper Arm (Left) Arterial BP Standing (Pre-Dialysis) 140/72 mmHg BP Standing (P ost-Dialysis) 128/53 mmHg Sitting Heart Rate Pre-Dialysis 57 BPM Sitting Heart Rate Post-Dialysis 60 BPM Standing Heart Rate Pre-Dialysis 60 BPM Standing Heart Rate Post-Dialysis 59 BPM Temperature Pre-Dialysis 98.2 degF Temperature Post -Dialysis 98.7 degF March 06, 2025 In-Center Hemodialysis Treatment 1633-79-12G29:03:00.000Z 6599-72-07A25:16:40.000Z BP Sitting (Pre-Dialysis) 172/85 mmHg BP Sitting (Post-Dialysis) 131/72 mmHg Concurrent Access: falseAV Graft Upper Arm (Left) Arterial BP Standing (Pre-Dialysis) 176/82 mmHg Sitti ng Heart Rate Post-Dialysis 56 BPM Sitting Heart Rate Pre-Dialysis 57 BPM Temperatu re Post-Dialysis 98.6 degF Standing Heart Rate Pre-Dialysis 59 BPM Temperature Pre-Dialysis 98.1 degF March 02, 2025 In-Center Hemodialysis Treatment 5208-03-52W48:07:48.000Z 2534-50-65M11:07:48.000Z BP Sitting (Pre-Dialysis) 157/72 mmHg BP Sitting (Post-Dialysis) 145/90 mmHg Concurrent Access: falseAV Graft Upper Arm (Left) Arterial BP Standing (Pre-Dialysis) 142/63 mmHg BP Standing (P ost-Dialysis) 140/72 mmHg Sitting Heart Rate Pre-Dialysis 56 BPM Sitting Heart Rate Post-Dialysis 58 BPM Standing Heart Rate Pre-Dialysis 60 BPM Standing Heart Rate Post-Dialysis 62 BPM Temperature Pre-Dialysis 98.7 degF Temperature Post -Dialysis 98.3 degF February 27, 2025 In-Center Hemodialysis Treatment 1758-56-68T16:00:58.000Z 1618-21-74V40:01:23.000Z BP Sitting (Pre-Dialysis) 141/68 mmHg BP Sitting (Post-Dialysis) 145/67 mmHg Concurrent Access: falseAV Graft Upper Arm (Left) Arterial BP Standing (Pre-Dialysis) 135/68 mmHg BP Standing (P ost-Dialysis) 135/67 mmHg Sitting Heart Rate Pre-Dialysis 59 BPM Sitting Heart Rate Post-Dialysis 55 BPM Standing Heart Rate Pre-Dialysis 67 BPM Standing Heart Rate Post-Dialysis 62 BPM Temperature Pre-Dialysis 98.5 degF Temperature Post -Dialysis 98.5 degF February 25, 2025 In-Center Hemodialysis Treatment 2990-87-20H60:06:10.000Z 1535-95-37V74:07:25.000Z BP Sitting (Pre-Dialysis) 150/69 mmHg BP Sitting (Post-Dialysis) 123/79 mmHg Concurrent Access: falseAV Graft Upper Arm (Left) Arterial BP Standing (Pre-Dialysis) 165/74 mmHg BP Standing (P ost-Dialysis) 143/72 mmHg Sitting Heart Rate Pre-Dialysis 57 BPM Sitting Heart Rate Post-Dialysis 52 BPM Standing Heart Rate Pre-Dialysis 57 BPM Standing Heart Rate Post-Dialysis 60 BPM Temperature Pre-Dialysis 98.3 degF Temperature Post -Dialysis 98.3 degF February 23, 2025 In-Center Hemodialysis Treatment 7312-19-06S84:58:25.000Z 3438-98-08G86:03:25.000Z BP Sitting (Pre-Dialysis) 137/71 mmHg BP Sitting (Post-Dialysis) 152/82 mmHg Concurrent Access: falseAV Graft Upper Arm (Left) Arterial BP Standing (Pre-Dialysis) 147/71 mmHg Sitti ng Heart Rate Post-Dialysis 60 BPM Sitting Heart Rate Pre-Dialysis 60 BPM Temperatu re Post-Dialysis 98.3 degF Standing Heart Rate Pre-Dialysis 64 BPM Temperature Pre-Dialysis 98.1 degF February 20, 2025 In-Center Hemodialysis Treatment 2490-31-95C34:01:25.000Z 7117-91-79P03:04:20.000Z BP Sitting (Pre-Dialysis) 127/58 mmHg BP Sitting (Post-Dialysis) 145/74 mmHg Concurrent Access: falseAV Graft Upper Arm (Left) Arterial BP Standing (Pre-Dialysis) 132/62 mmHg Sitti ng Heart Rate Post-Dialysis 75 BPM Sitting Heart Rate Pre-Dialysis 57 BPM Temperatu re Post-Dialysis 98.8 degF Standing Heart Rate Pre-Dialysis 57 BPM Temperature Pre-Dialysis 98.4 degF February 18, 2025 In-Center Hemodialysis Treatment 2339-63-72X58:04:10.000Z 5734-94-69L98:04:10.000Z BP Sitting (Pre-Dialysis) 147/69 mmHg BP Sitting (Post-Dialysis) 133/68 mmHg Concurrent Access: falseAV Graft Upper Arm (Left) Arterial BP Standing (Pre-Dialysis) 117/75 mmHg Sitti ng Heart Rate Post-Dialysis 54 BPM Sitting Heart Rate Pre-Dialysis 58 BPM Temperatu re Post-Dialysis 98.7 degF Standing Heart Rate Pre-Dialysis 59 BPM Temperature Pre-Dialysis 98.3 degF February 16, 2025 In-Center Hemodialysis Treatment 6100-17-30T32:50:00.000Z 3735-25-10E56:52:05.000Z BP Sitting (Pre-Dialysis) 128/63 mmHg BP Sitting (Post-Dialysis) 142/61 mmHg Concurrent Access: falseAV Graft Upper Arm (Left) Arterial BP Standing (Pre-Dialysis) 135/57 mmHg Sitti ng Heart Rate Post-Dialysis 53 BPM Sitting Heart Rate Pre-Dialysis 53 BPM Temperatu re Post-Dialysis 98.3 degF Standing Heart Rate Pre-Dialysis 55 BPM Temperature Pre-Dialysis 98.7 degF February 13, 2025 In-Center Hemodialysis Treatment 6735-67-83P02:05:29.000Z 4450-23-67G31:45:29.000Z BP Sitting (Pre-Dialysis) 138/69 mmHg BP Sitting (Post-Dialysis) 134/66 mmHg Concurrent Access: falseAV Graft Upper Arm (Left) Arterial BP Standing (Pre-Dialysis) 150/61 mmHg Sitting Heart Rate Post-Dialysis 76 BPM Sitting Heart Rate Pre-Dialysis 55 BPM Temperatu re Post-Dialysis 98 degF Standing Heart Rate Pre-Dialysis 56 BPM Temperature Pre-Dialysis 98.1 degF February 11, 2025 In-Center Hemodialysis Treatment 2526-82-23R93:07:00.000Z 1902-55-44C38:12:19.000Z BP Sitting (Pre-Dialysis) 160/69 mmHg BP Sitting (Post-Dialysis) 132/64 mmHg Concurrent Access: falseAV Graft Upper Arm (Left) Arterial BP Standing (Pre-Dialysis) 134/64 mmHg BP Standing (P ost-Dialysis) 130/90 mmHg Sitting Heart Rate Pre-Dialysis 62 BPM Sitting Heart Rate Post-Dialysis 60 BPM Standing Heart Rate Pre-Dialysis 56 BPM Standing Heart Rate Post-Dialysis 61 BPM Temperature Pre-Dialysis 98.4 degF Temperature Post -Dialysis 99 degF February 09, 2025 In-Center Hemodialysis Treatment 6554-80-68A12:58:57.000Z 1960-48-55L46:32:17.000Z BP Sitting (Pre-Dialysis) 132/67 mmHg BP Sitting (Post-Dialysis) 113/58 mmHg Concurrent Access: falseAV Graft Upper Arm (Left) Arterial BP Standing (Pre-Dialysis) 141/65 mmHg BP Standing (P ost-Dialysis) 110/56 mmHg Sitting Heart Rate Pre-Dialysis 54 BPM Sitting Heart Rate Post-Dialysis 57 BPM Standing Heart Rate Pre-Dialysis 55 BPM Standing Heart Rate Post-Dialysis 62 BPM Temperature Pre-Dialysis 97.9 degF Temperature Post -Dialysis 98.3 degF February 06, 2025 In-Center Hemodialysis Treatment 0330-26-92G57:59:00.000Z 7031-59-50F12:30:44.000Z BP Sitting (Pre-Dialysis) 136/60 mmHg BP Sitting (Post-Dialysis) 122/59 mmHg Concurrent Access: falseAV Graft Upper Arm (Left) Arterial BP Standing (Pre-Dialysis) 126/66 mmHg BP Standing (P ost-Dialysis) 117/57 mmHg Sitting Heart Rate Pre-Dialysis 56 BPM Sitting Heart Rate Post-Dialysis 56 BPM Standing Heart Rate Pre-Dialysis 58 BPM Standing Heart Rate Post-Dialysis 55 BPM Temperature Pre-Dialysis 98.3 degF February 04, 2025 In-Center Hemodialysis Treatment 4440-93-32C56:05:30.000Z 7730-55-24P10:20:05.000Z BP Sitting (Pre-Dialysis) 123/46 mmHg BP Sitting (Post-Dialysis) 132/66 mmHg Concurrent Access: falseAV Graft Upper Arm (Left) Arterial BP Standing (Pre-Dialysis) 116/62 mmHg BP Standing (P ost-Dialysis) 128/66 mmHg Sitting Heart Rate Pre-Dialysis 57 BPM Sitting Heart Rate Post-Dialysis 59 BPM Standing Heart Rate Pre-Dialysis 57 BPM Standing Heart Rate Post-Dialysis 59 BPM Temperature Pre-Dialysis 98.7 degF Temperature Post -Dialysis 98.2 degF February 02, 2025 In-Center Hemodialysis Treatment [id number]:02:18.000Z [id number]:51:03.000Z BP Sitting (Pre-Dialysis) 156/63 mmHg BP Sitting (Post-Dialysis) 125/62 mmHg Concurrent Access: falseAV Graft Upper Arm (Left) Arterial BP Standing (Pre-Dialysis) 154/67 mmHg BP Standing (P ost-Dialysis) 126/72 mmHg Sitting Heart Rate Pre-Dialysis 63 BPM Sitting Heart Rate Post-Dialysis 59 BPM Standing Heart Rate Pre-Dialysis 56 BPM Standing Heart Rate Post-Dialysis 66 BPM Temperature Pre-Dialysis 98.4 degF Temperature Post -Dialysis 98.6 degF January 30, 2025 In-Center Hemodialysis Treatment [id number]:58:51.000Z [id number]:30:31.000Z BP Sitting (Pre-Dialysis) 129/62 mmHg BP Sitting (Post-Dialysis) 124/59 mmHg Concurrent Access: falseAV Graft Upper Arm (Left) Arterial BP Standing (Pre-Dialysis) 122/59 mmHg BP Standing (P ost-Dialysis) 129/63 mmHg Sitting Heart Rate Pre-Dialysis 55 BPM Sitting Heart Rate Post-Dialysis 57 BPM Standing Heart Rate Pre-Dialysis 59 BPM Standing Heart Rate Post-Dialysis 57 BPM Temperature Pre-Dialysis 98.2 degF Temperature Post -Dialysis 98.5 degF January 28, 2025 In-Center Hemodialysis Treatment [id number]:57:00.000Z [id number]:28:50.000Z BP Sitting (Pre-Dialysis) 139/66 mmHg BP Sitting (Post-Dialysis) 134/61 mmHg Concurrent Access: falseAV Graft Upper Arm (Left) Arterial BP Standing (Pre-Dialysis) 144/65 mmHg BP Standing (P ost-Dialysis) 122/50 mmHg Sitting Heart Rate Pre-Dialysis 60 BPM Sitting Heart Rate Post-Dialysis 54 BPM Standing Heart Rate Pre-Dialysis 60 BPM Standing Heart Rate Post-Dialysis 55 BPM Temperature Pre-Dialysis 98.1 degF Temperature Post -Dialysis 98.7 degF January 26, 2025 In-Center Hemodialysis Treatment [id number]:06:15.000Z 6169-51-46B67:12:05.000Z BP Sitting (Pre-Dialysis) 148/67 mmHg BP Sitting (Post-Dialysis) 157/71 mmHg Concurrent Access: falseAV Graft Upper Arm (Left) Arterial BP Standing (Pre-Dialysis) 144/68 mmHg Sitti ng Heart Rate Post-Dialysis 57 BPM Sitting Heart Rate Pre-Dialysis 52 BPM Temperatu re Post-Dialysis 97.6 degF Standing Heart Rate Pre-Dialysis 53 BPM Temperature Pre-Dialysis 97.9 degF January 24, 2025 In-Center Hemodialysis Treatment 4260-39-51L55:01:00.000Z 3823-04-58Y54:18:35.000Z BP Sitting (Pre-Dialysis) 154/68 mmHg BP Sitting (Post-Dialysis) 152/69 mmHg Concurrent Access: falseAV Graft Upper Arm (Left) Arterial BP Standing (Pre-Dialysis) 166/72 mmHg Sitti ng Heart Rate Post-Dialysis 52 BPM Sitting Heart Rate Pre-Dialysis 54 BPM Temperatu re Post-Dialysis 98.5 degF Standing Heart Rate Pre-Dialysis 54 BPM Temperature Pre-Dialysis 98.4 degF January 21, 2025 In-Center Hemodialysis Treatment [id number]:00:10.000Z [id number]:59:45.000Z BP Sitting (Pre-Dialysis) 126/62 mmHg BP Sitting (Post-Dialysis) 102/54 mmHg Concurrent Access: falseAV Graft Upper Arm (Left) Arterial BP Standing (Pre-Dialysis) 114/55 mmHg BP Standing (P ost-Dialysis) 149/100 mmHg Sitting Heart Rate Pre-Dialysis 59 BPM Sitting Heart Rate Post-Dialysis 58 BPM Standing Heart Rate Pre-Dialysis 63 BPM Standing Heart Rate Post-Dialysis 58 BPM Temperature Pre-Dialysis 98.2 degF Temperature Post -Dialysis 97.6 degF January 19, 2025 In-Center Hemodialysis Treatment 4818-15-90R13:06:25.000Z [id number]:59:20.000Z BP Sitting (Pre-Dialysis) 165/77 mmHg BP Sitting (Post-Dialysis) 127/55 mmHg Concurrent Access: falseAV Graft Upper Arm (Left) Arterial BP Standing (Pre-Dialysis) 155/70 mmHg BP Standing (P ost-Dialysis) 112/60 mmHg Sitting Heart Rate Pre-Dialysis 53 BPM Sitting Heart Rate Post-Dialysis 58 BPM Standing Heart Rate Pre-Dialysis 55 BPM Standing Heart Rate Post-Dialysis 60 BPM Temperature Pre-Dialysis 98.4 degF Temperature Post -Dialysis 98.4 degF January 16, 2025 [facility] [id number]:02:18.000Z 0368-05-63S08:05:38.000Z BP Sitting (Pre-Dialysis) 148/74 mmHg BP Sitting (Post-Dialysis) 119/49 mmHg Concurrent Access: falseAV Graft Upper Arm (Left) Arterial BP Standing (Pre-Dialysis) 136/65 mmHg BP Standing (P ost-Dialysis) 116/66 mmHg Sitting Heart Rate Pre-Dialysis 58 BPM Sitting Heart Rate Post-Dialysis 59 BPM Standing Heart Rate Pre-Dialysis 60 BPM Standing Heart Rate Post-Dialysis 69 BPM Temperature Pre-Dialysis 98.7 degF Temperature Post -Dialysis 98.6 degF January 15, 2025 In-Center Hemodialysis Treatment [id number]:54:00.000Z 9583-34-31D33:05:18.000Z BP Sitting (Pre-Dialysis) 159/74 mmHg BP Sitting (Post-Dialysis) 153/71 mmHg Concurrent Access: falseAV Graft Upper Arm (Left) Arterial BP Standing (Pre-Dialysis) 156/69 mmHg BP Standing (P ost-Dialysis) 132/70 mmHg Sitting Heart Rate Pre-Dialysis 54 BPM Sitting Heart Rate Post-Dialysis 56 BPM Standing Heart Rate Pre-Dialysis 56 BPM Standing Heart Rate Post-Dialysis 60 BPM Temperature Pre-Dialysis 98.3 degF Temperature Post -Dialysis 98 degF January 12, 2025 In-Center Hemodialysis Treatment [id number]:01:00.000Z 2629-62-15W69:02:41.000Z BP Sitting (Pre-Dialysis) 143/84 mmHg BP Sitting (Post-Dialysis) 129/69 mmHg Concurrent Access: falseAV Graft Upper Arm (Left) Arterial BP Standing (Pre-Dialysis) 146/71 mmHg BP Standing (P ost-Dialysis) 119/62 mmHg Sitting Heart Rate Pre-Dialysis 62 BPM Sitting Heart Rate Post-Dialysis 61 BPM Standing Heart Rate Pre-Dialysis 60 BPM Standing Heart Rate Post-Dialysis 60 BPM Temperature Pre-Dialysis 97.9 degF Temperature Post -Dialysis 98.4 degF January 09, 2025 In-Center Hemodialysis Treatment [id number]:03:04.000Z 7312-64-09Y05:05:34.000Z BP Sitting (Pre-Dialysis) 136/66 mmHg BP Sitting (Post-Dialysis) 130/68 mmHg Concurrent Access: falseAV Graft Upper Arm (Left) Arterial BP Standing (Pre-Dialysis) 137/67 mmHg BP Standing (P ost-Dialysis) 147/74 mmHg Sitting Heart Rate Pre-Dialysis 60 BPM Sitting Heart Rate Post-Dialysis 58 BPM Standing Heart Rate Pre-Dialysis 61 BPM Standing Heart Rate Post-Dialysis 66 BPM Temperature Pre-Dialysis 98.4 degF Temperature Post -Dialysis 98.6 degF January 07, 2025 In-Center Hemodialysis Treatment [id number]:02:49.000Z 5911-05-26N66:03:14.000Z BP Sitting (Pre-Dialysis) 140/65 mmHg BP Sitting (Post-Dialysis) 126/63 mmHg Concurrent Access: falseAV Graft Upper Arm (Left) Arterial BP Standing (Pre-Dialysis) 175/73 mmHg BP Standing (P ost-Dialysis) 126/61 mmHg Sitting Heart Rate Pre-Dialysis 61 BPM Sitting Heart Rate Post-Dialysis 59 BPM Standing Heart Rate Pre-Dialysis 64 BPM Standing Heart Rate Post-Dialysis 64 BPM Temperature Pre-Dialysis 98.2 degF Temperature Post -Dialysis 99.6 degF January 05, 2025 In-Center Hemodialysis Treatment [id number]:07:00.000Z 4499-34-26E02:14:42.000Z BP Sitting (Pre-Dialysis) 137/68 mmHg BP Sitting (Post-Dialysis) 133/61 mmHg Concurrent Access: falseAV Graft Upper Arm (Left) Arterial BP Standing (Pre-Dialysis) 133/63 mmHg BP Standing (P ost-Dialysis) 136/67 mmHg Sitting Heart Rate Pre-Dialysis 60 BPM Sitting Heart Rate Post-Dialysis 60 BPM Standing Heart Rate Pre-Dialysis 63 BPM Standing Heart Rate Post-Dialysis 66 BPM Temperature Pre-Dialysis 98.7 degF Temperature Post -Dialysis 99.2 degF January 02, 2025 In-Center Hemodialysis Treatment [id number]:57:35.000Z 2471-87-79Q03:01:20.000Z BP Sitting (Pre-Dialysis) 129/51 mmHg BP Sitting (Post-Dialysis) 120/63 mmHg Concurrent Access: falseAV Graft Upper Arm (Left) Arterial BP Standing (Pre-Dialysis) 112/60 mmHg Sitti ng Heart Rate Post-Dialysis 55 BPM Sitting Heart Rate Pre-Dialysis 53 BPM Temperatu re Post-Dialysis 97.6 degF Standing Heart Rate Pre-Dialysis 64 BPM Temperature Pre-Dialysis 98.6 degF December 31, 2024 In-Center Hemodialysis Treatment 1654-02-55V03:44:00.000Z 2209-86-00J88:55:58.000Z BP Sitting (Pre-Dialysis) 141/68 mmHg BP Sitting (Post-Dialysis) 117/52 mmHg Concurrent Access: falseAV Graft Upper Arm (Left) Arterial BP Standing (Pre-Dialysis) 138/71 mmHg BP Standing (P ost-Dialysis) 120/59 mmHg Sitting Heart Rate Pre-Dialysis 60 BPM Sitting Heart Rate Post-Dialysis 59 BPM Standing Heart Rate Pre-Dialysis 63 BPM Standing Heart Rate Post-Dialysis 61 BPM Temperature Pre-Dialysis 98.3 degF Temperature Post -Dialysis 98.5 degF December 30, 2024 In-Center Hemodialysis Treatment [id number]:51:09.000Z [id number]:16:34.000Z BP Sitting (Pre-Dialysis) 154/63 mmHg BP Sitting (Post-Dialysis) 131/75 mmHg Concurrent Access: falseAV Graft Upper Arm (Left) Arterial BP Standing (Pre-Dialysis) 155/71 mmHg Sitti ng Heart Rate Post-Dialysis 60 BPM Sitting Heart Rate Pre-Dialysis 55 BPM Temperatu re Post-Dialysis 97.9 degF Standing Heart Rate Pre-Dialysis 59 BPM Temperature Pre-Dialysis 98 degF December 26, 2024 In-Center Hemodialysis Treatment 6358-10-47P22:00:49.000Z 1950-84-49X01:00:24.000Z BP Sitting (Pre-Dialysis) 130/62 mmHg BP Sitting (Post-Dialysis) 120/79 mmHg Concurrent Access: falseAV Graft Upper Arm (Left) Arterial BP Standing (Pre-Dialysis) 128/73 mmHg Sitti ng Heart Rate Post-Dialysis 56 BPM Sitting Heart Rate Pre-Dialysis 60 BPM Temperatu re Post-Dialysis 98.2 degF Standing Heart Rate Pre-Dialysis 65 BPM Temperature Pre-Dialysis 98.1 degF December 24, 2024 In-Center Hemodialysis Treatment 9744-27-45O69:02:34.000Z 6705-29-97Y71:02:25.000Z BP Sitting (Pre-Dialysis) 123/60 mmHg BP Sitting (Post-Dialysis) 133/71 mmHg Concurrent Access: falseAV Graft Upper Arm (Left) Arterial BP Standing (Pre-Dialysis) 121/63 mmHg BP Standing (P ost-Dialysis) 121/65 mmHg Sitting Heart Rate Pre-Dialysis 56 BPM Sitting Heart Rate Post-Dialysis 70 BPM Standing Heart Rate Pre-Dialysis 62 BPM Standing Heart Rate Post-Dialysis 71 BPM Temperature Pre-Dialysis 98.2 degF Temperature Post -Dialysis 97.7 degF December 22, 2024 In-Center Hemodialysis Treatment 1467-65-18P24:00:39.000Z 1439-83-22M96:01:04.000Z BP Sitting (Pre-Dialysis) 159/78 mmHg BP Sitting (Post-Dialysis) 142/71 mmHg Concurrent Access: falseAV Graft Upper Arm (Left) Arterial Sitting Heart Rate Pre-Dialysis 64 BPM BP Standing (Post-Dialysis) 122/70 mmHg Temperature Pre-Dialysis 98.1 degF Sitting Heart Ra te Post-Dialysis 62 BPM Standing Heart Rate Post-Cate lysis 66 BPM Temperature Post-Dialysis 97 .2 degF December 19, 2024 In-Center Hemodialysis Treatment 5129-56-41A44:02:56.000Z 8543-50-97V08:12:31.000Z BP Sitting (Pre-Dialysis) 126/94 mmHg BP Sitting (Post-Dialysis) 117/62 mmHg Concurrent Access: falseAV Graft Upper Arm (Left) Arterial BP Standing (Pre-Dialysis) 130/66 mmHg BP Standing (P ost-Dialysis) 117/57 mmHg Sitting Heart Rate Pre-Dialysis 59 BPM Sitting Heart Rate Post-Dialysis 61 BPM Standing Heart Rate Pre-Dialysis 62 BPM Standing Heart Rate Post-Dialysis 62 BPM Temperature Pre-Dialysis 98.6 degF Temperature Post -Dialysis 98.4 degF December 17, 2024 In-Center Hemodialysis Treatment 7889-52-60T55:58:00.000Z 0831-62-93G82:01:07.000Z BP Sitting (Pre-Dialysis) 127/65 mmHg BP Sitting (Post-Dialysis) 130/66 mmHg Concurrent Access: falseAV Graft Upper Arm (Left) Arterial BP Standing (Pre-Dialysis) 127/62 mmHg BP Standing (P ost-Dialysis) 120/59 mmHg Sitting Heart Rate Pre-Dialysis 59 BPM Sitting Heart Rate Post-Dialysis 63 BPM Standing Heart Rate Pre-Dialysis 59 BPM Standing Heart Rate Post-Dialysis 65 BPM Temperature Pre-Dialysis 98.2 degF Temperature Post -Dialysis 97.8 degF December 15, 2024 In-Center Hemodialysis Treatment 1244-19-18K14:08:00.000Z 9113-45-12E13:18:05.000Z BP Sitting (Pre-Dialysis) 128/65 mmHg BP Sitting (Post-Dialysis) 134/60 mmHg Concurrent Access: falseAV Graft Upper Arm (Left) Arterial BP Standing (Pre-Dialysis) 139/61 mmHg Sitti ng Heart Rate Post-Dialysis 55 BPM Sitting Heart Rate Pre-Dialysis 54 BPM Temperatu re Post-Dialysis 98.7 degF Standing Heart Rate Pre-Dialysis 58 BPM Temperature Pre-Dialysis 97.7 degF December 12, 2024 In-Center Hemodialysis Treatment 1765-71-21L31:03:27.000Z 5867-27-97G75:05:07.000Z BP Sitting (Pre-Dialysis) 138/71 mmHg BP Sitting (Post-Dialysis) 147/65 mmHg Concurrent Access: falseAV Graft Upper Arm (Left) Arterial BP Standing (Pre-Dialysis) 134/73 mmHg BP Standing (P ost-Dialysis) 125/58 mmHg Sitting Heart Rate Pre-Dialysis 56 BPM Sitting Heart Rate Post-Dialysis 58 BPM Standing Heart Rate Pre-Dialysis 57 BPM Standing Heart Rate Post-Dialysis 61 BPM Temperature Pre-Dialysis 98 degF Temperature Post -Dialysis 98.6 degF December 11, 2024 In-Center Hemodialysis Treatment 400 mL/min 500 mL/min Concurrent Access: false December 08, 2024 In-Center Hemodialysis Treatment 20 25 -0 T1 0: 04 :2 2. 00 0Z 20 25 -0 T1 3: 18 :5 7. 00 0Z BP Sitting (Pre-Dial ysis) 126/66 mmHg BP Sitting (Post-Cate lysis) 113/55 mmHg Concurrent Access: falseAV Graft Upper Arm (Left) Arterial BP Standing (Pre-Dialysis) 123/50 mmHg Sitti ng Heart Rate Post-Dialysis 58 BPM Sitting Heart Rate Pre-Dialysis 60 BPM Temperatu re Post-Dialysis 98.3 degF Standing Heart Rate Pre-Dialysis 62 BPM Temperature Pre-Dialysis 98.4 degF December 05, 2024 In-Center Hemodialysis Treatment 5707-60-93L20:02:26.000Z 5127-64-22S66:17:51.000Z BP Sitting (Pre-Dialysis) 155/73 mmHg BP Sitting (Post-Dialysis) 144/68 mmHg Concurrent Access: falseAV Graft Upper Arm (Left) Arterial Sitting Heart Rate Pre-Dialysis 62 BPM BP Standi ng (Post-Dialysis) 124/68 mmHg Temperature Pre-Dialysis 98 degF Sitting Heart Ra te Post-Dialysis 60 BPM Standing Heart Rate Post-Cate lysis 62 BPM Temperature Post-Dialysis 98 .2 degF December 03, 2024 In-Center Hemodialysis Treatment [id number]:59:29.000Z 8356-13-44P58:59:29.000Z BP Sitting (Pre-Dialysis) 134/64 mmHg BP Sitting (Post-Dialysis) 127/56 mmHg Concurrent Access: falseAV Graft Upper Arm (Left) Arterial Sitting Heart Rate Pre-Dialysis 59 BPM BP Standing (Post-Dialysis) 109/60 mmHg Temperature Pre-Dialysis 97.8 degF Sitting Heart Ra te Post-Dialysis 59 BPM Standing Heart Rate Post-Cate lysis 61 BPM Temperature Post-Dialysis 98 degF December 01, 2024 In-Center Hemodialysis Treatment 8537-26-58F19:05:58.000Z 2087-25-25L17:38:53.000Z BP Sitting (Pre-Dialysis) 112/69 mmHg BP Sitting (Post-Dialysis) 118/61 mmHg Concurrent Access: falseAV Graft Upper Arm (Left) Arterial BP Standing (Pre-Dialysis) 134/63 mmHg Sitti ng Heart Rate Post-Dialysis 58 BPM Sitting Heart Rate Pre-Dialysis 63 BPM Temperatu re Post-Dialysis 98.5 degF Standing Heart Rate Pre-Dialysis 65 BPM Temperature Pre-Dialysis 98.1 degF November 28, 2024 In-Center Hemodialysis Treatment 8956-01-82S38:05:00.000Z 9587-05-97B17:21:35.000Z BP Sitting (Pre-Dialysis) 105/60 mmHg BP Sitting (Post-Dialysis) 108/53 mmHg Concurrent Access: falseAV Graft Upper Arm (Left) Arterial BP Standing (Pre-Dialysis) 125/61 mmHg BP Standing (P ost-Dialysis) 115/56 mmHg Sitting Heart Rate Pre-Dialysis 56 BPM Sitting Heart Rate Post-Dialysis 63 BPM Standing Heart Rate Pre-Dialysis 63 BPM Standing Heart Rate Post-Dialysis 61 BPM Temperature Pre-Dialysis 98.1 degF Temperature Post -Dialysis 98.3 degF November 26, 2024 In-Center Hemodialysis Treatment [id number]:59:00.000Z 5293-43-17F03:04:25.000Z BP Sitting (Pre-Dialysis) 123/61 mmHg BP Sitting (Post-Dialysis) 124/65 mmHg Concurrent Access: falseAV Graft Upper Arm (Left) Arterial BP Standing (Pre-Dialysis) 124/63 mmHg BP Standing (P ost-Dialysis) 124/76 mmHg Sitting Heart Rate Pre-Dialysis 59 BPM Sitting Heart Rate Post-Dialysis 62 BPM Standing Heart Rate Pre-Dialysis 63 BPM Standing Heart Rate Post-Dialysis 66 BPM Temperature Pre-Dialysis 97.9 degF Temperature Post -Dialysis 97.6 degF November 24, 2024 In-Center Hemodialysis Treatment 9834-71-69F08:07:28.000Z 0849-15-95C17:13:43.000Z BP Sitting (Pre-Dialysis) 112/55 mmHg BP Sitting (Post-Dialysis) 102/55 mmHg Concurrent Access: falseAV Graft Upper Arm (Left) Arterial BP Standing (Pre-Dialysis) 110/62 mmHg BP Standing (P ost-Dialysis) 101/48 mmHg Sitting Heart Rate Pre-Dialysis 61 BPM Sitting Heart Rate Post-Dialysis 62 BPM Standing Heart Rate Pre-Dialysis 66 BPM Standing Heart Rate Post-Dialysis 66 BPM Temperature Pre-Dialysis 98.4 degF Temperature Post -Dialysis 97.9 degF November 21, 2024 In-Center Hemodialysis Treatment [id number]:00:16.000Z 6634-31-03O86:00:16.000Z BP Sitting (Pre-Dialysis) 129/64 mmHg BP Sitting (Post-Dialysis) 121/64 mmHg Concurrent Access: falseAV Graft Upper Arm (Left) Arterial Sitting Heart Rate Pre-Dialysis 62 BPM Sitting H eart Rate Post-Dialysis 63 BPM Temperature Pre-Dialysis 98 degF Temperature Post -Dialysis 98 degF November 19, 2024 In-Center Hemodialysis Treatment 3938-12-57S23:58:56.000Z [id number]:28:31.000Z BP Sitting (Pre-Dialysis) 142/83 mmHg BP Sitting (Post-Dialysis) 147/72 mmHg Concurrent Access: falseAV Graft Upper Arm (Left) Arterial BP Standing (Pre-Dialysis) 138/76 mmHg Sitti ng Heart Rate Post-Dialysis 88 BPM Sitting Heart Rate Pre-Dialysis 79 BPM Temperatu re Post-Dialysis 97.9 degF Standing Heart Rate Pre-Dialysis 85 BPM Temperature Pre-Dialysis 98.1 degF November 18, 2024 In-Center Hemodialysis Treatment 7070-85-30E33:24:00.000Z 3799-25-61S06:25:23.000Z BP Sitting (Pre-Dialysis) 122/58 mmHg BP Sitting (Post-Dialysis) 122/60 mmHg Concurrent Access: falseAV Graft Upper Arm (Left) Arterial Sitting Heart Rate Pre-Dialysis 61 BPM Sitting H eart Rate Post-Dialysis 58 BPM Temperature Pre-Dialysis 97.6 degF November 10, 2024 In-Center Hemodialysis Treatment 5640-69-84B80:57:52.000Z 0018-45-01E98:16:37.000Z BP Sitting (Pre-Dialysis) 118/65 mmHg BP Sitting (Post-Dialysis) 100/55 mmHg Concurrent Access: falseAV Graft Upper Arm (Left) Arterial BP Standing (Pre-Dialysis) 128/66 mmHg BP Standing (P ost-Dialysis) 117/65 mmHg Sitting Heart Rate Pre-Dialysis 59 BPM Sitting Heart Rate Post-Dialysis 65 BPM Standing Heart Rate Pre-Dialysis 61 BPM Standing Heart Rate Post-Dialysis 87 BPM Temperature Pre-Dialysis 98.1 degF Temperature Post -Dialysis 97.9 degF November 07, 2024 In-Center Hemodialysis Treatment 3786-53-34O21:58:14.000Z 5614-54-65H91:34:04.000Z BP Sitting (Pre-Dialysis) 135/73 mmHg BP Sitting (Post-Dialysis) 121/61 mmHg Concurrent Access: falseAV Graft Upper Arm (Left) Arterial BP Standing (Pre-Dialysis) 142/69 mmHg Sitting Heart Rate Post-Dialysis 62 BPM Sitting Heart Rate Pre-Dialysis 68 BPM Temperatu re Post-Dialysis 98 degF Standing Heart Rate Pre-Dialysis 70 BPM Temperature Pre-Dialysis 97.9 degF November 05, 2024 In-Center Hemodialysis Treatment 6456-59-35H09:03:00.000Z 4456-09-96V75:15:50.000Z BP Sitting (Pre-Dialysis) 139/65 mmHg BP Sitting (Post-Dialysis) 126/62 mmHg Concurrent Access: falseAV Graft Upper Arm (Left) Arterial BP Standing (Pre-Dialysis) 149/72 mmHg BP Standing (P ost-Dialysis) 124/60 mmHg Sitting Heart Rate Pre-Dialysis 61 BPM Sitting Heart Rate Post-Dialysis 63 BPM Standing Heart Rate Pre-Dialysis 64 BPM Standing Heart Rate Post-Dialysis 67 BPM Temperature Pre-Dialysis 98 degF November 03, 2024 In-Center Hemodialysis Treatment [id number]:02:45.000Z 4310-78-94S19:15:40.000Z BP Sitting (Pre-Dialysis) 136/65 mmHg BP Sitting (Post-Dialysis) 128/70 mmHg Concurrent Access: falseAV Graft Upper Arm (Left) Arterial BP Standing (Pre-Dialysis) 141/74 mmHg BP Standing (P ost-Dialysis) 145/59 mmHg Sitting Heart Rate Pre-Dialysis 66 BPM Sitting Heart Rate Post-Dialysis 67 BPM Standing Heart Rate Pre-Dialysis 68 BPM Standing Heart Rate Post-Dialysis 73 BPM Temperature Pre-Dialysis 98.7 degF Temperature Post -Dialysis 98 degF November 01, 2024 In-Center Hemodialysis Treatment [id number]:48:00.000Z 5640-42-21K65:44:42.000Z BP Sitting (Pre-Dialysis) 163/74 mmHg BP Sitting (Post-Dialysis) 131/65 mmHg Concurrent Access: falseAV Graft Upper Arm (Left) Arterial BP Standing (Pre-Dialysis) 176/71 mmHg BP Standing (P ost-Dialysis) 145/71 mmHg Sitting Heart Rate Pre-Dialysis 69 BPM Sitting Heart Rate Post-Dialysis 65 BPM Standing Heart Rate Pre-Dialysis 71 BPM Standing Heart Rate Post-Dialysis 65 BPM Temperature Pre-Dialysis 98.2 degF Temperature Post -Dialysis 98.1 degF October 30, 2024 In-Center Hemodialysis Treatment [id number]:46:41.000Z 4428-76-09H22:46:16.000Z BP Sitting (Pre-Dialysis) 151/79 mmHg BP Sitting (Post-Dialysis) 128/61 mmHg Concurrent Access: falseAV Graft Upper Arm (Left) Arterial BP Standing (Pre-Dialysis) 157/82 mmHg BP Standing (P ost-Dialysis) 133/66 mmHg Sitting Heart Rate Pre-Dialysis 67 BPM Sitting Heart Rate Post-Dialysis 68 BPM Standing Heart Rate Pre-Dialysis 69 BPM Standing Heart Rate Post-Dialysis 69 BPM Temperature Pre-Dialysis 98.6 degF Temperature Post -Dialysis 97.7 degF October 28, 2024 In-Center Hemodialysis Treatment [id number]:58:48.000Z 7958-47-15G28:59:13.000Z BP Sitting (Pre-Dialysis) 135/66 mmHg BP Sitting (Post-Dialysis) 146/68 mmHg Concurrent Access: falseAV Graft Upper Arm (Left) Arterial Sitting Heart Rate Pre-Dialysis 63 BPM Sitting H eart Rate Post-Dialysis 68 BPM Temperature Pre-Dialysis 99.6 degF Temperature Post -Dialysis 98.6 degF October 24, 2024 In-Center Hemodialysis Treatment 5052-03-99I32:04:00.000Z 2516-23-80Z26:10:00.000Z BP Sitting (Pre-Dialysis) 122/64 mmHg BP Sitting (Post-Dialysis) 123/59 mmHg Concurrent Access: falseAV Graft Upper Arm (Left) Arterial BP Standing (Pre-Dialysis) 131/68 mmHg Sitti ng Heart Rate Post-Dialysis 68 BPM Sitting Heart Rate Pre-Dialysis 63 BPM Temperatu re Post-Dialysis 97.8 degF Standing Heart Rate Pre-Dialysis 65 BPM Temperature Pre-Dialysis 98.3 degF October 22, 2024 In-Center Hemodialysis Treatment 8620-75-34K58:04:00.000Z 3296-31-59M36:09:35.000Z BP Sitting (Pre-Dialysis) 133/58 mmHg BP Sitting (Post-Dialysis) 123/71 mmHg Concurrent Access: falseAV Graft Upper Arm (Left) Arterial BP Standing (Pre-Dialysis) 132/68 mmHg Sitti ng Heart Rate Post-Dialysis 80 BPM Sitting Heart Rate Pre-Dialysis 62 BPM Temperatu re Post-Dialysis 98.5 degF Standing Heart Rate Pre-Dialysis 63 BPM Temperature Pre-Dialysis 98.1 degF October 20, 2024 In-Center Hemodialysis Treatment [id number]:10:14.000Z [id number]:09:49.000Z BP Sitting (Pre-Dialysis) 131/71 mmHg BP Sitting (Post-Dialysis) 126/65 mmHg Concurrent Access: falseAV Graft Upper Arm (Left) Arterial BP Standing (Pre-Dialysis) 140/71 mmHg Sitti ng Heart Rate Post-Dialysis 63 BPM Sitting Heart Rate Pre-Dialysis 63 BPM Temperatu re Post-Dialysis 98.6 degF Standing Heart Rate Pre-Dialysis 67 BPM Temperature Pre-Dialysis 99.3 degF October 17, 2024 In-Center Hemodialysis Treatment [id number]:10:34.000Z 6729-14-47K92:06:49.000Z BP Sitting (Pre-Dialysis) 127/70 mmHg BP Sitting (Post-Dialysis) 127/72 mmHg Concurrent Access: falseAV Graft Upper Arm (Left) Arterial BP Standing (Pre-Dialysis) 135/78 mmHg Sitti ng Heart Rate Post-Dialysis 74 BPM Sitting Heart Rate Pre-Dialysis 78 BPM Temperatu re Post-Dialysis 98.4 degF Standing Heart Rate Pre-Dialysis 78 BPM Temperature Pre-Dialysis 98.4 degF October 13, 2024 In-Center Hemodialysis Treatment 9800-01-80F55:03:40.000Z 3263-89-64S78:03:40.000Z BP Sitting (Pre-Dialysis) 128/67 mmHg BP Sitting (Post-Dialysis) 145/64 mmHg Concurrent Access: falseAV Graft Upper Arm (Left) Arterial Sitting Heart Rate Pre-Dialysis 58 BPM Sitting H eart Rate Post-Dialysis 65 BPM Temperature Pre-Dialysis 98 degF Temperature Post -Dialysis 98.5 degF October 10, 2024 In-Center Hemodialysis Treatment [id number]:02:29.000Z 3657-38-86I90:02:04.000Z BP Sitting (Pre-Dialysis) 130/70 mmHg BP Sitting (Post-Dialysis) 124/60 mmHg Concurrent Access: falseAV Graft Upper Arm (Left) Arterial BP Standing (Pre-Dialysis) 144/71 mmHg BP Standing (P ost-Dialysis) 120/68 mmHg Sitting Heart Rate Pre-Dialysis 61 BPM Sitting Heart Rate Post-Dialysis 59 BPM Standing Heart Rate Pre-Dialysis 63 BPM Standing Heart Rate Post-Dialysis 62 BPM Temperature Pre-Dialysis 98.2 degF Temperature Post -Dialysis 98.5 degF October 08, 2024 In-Center Hemodialysis Treatment [id number]:06:40.000Z 4297-09-88P17:06:40.000Z BP Sitting (Pre-Dialysis) 135/69 mmHg BP Sitting (Post-Dialysis) 126/64 mmHg Concurrent Access: falseAV Graft Upper Arm (Left) Arterial BP Standing (Pre-Dialysis) 137/73 mmHg Sitti ng Heart Rate Post-Dialysis 64 BPM Sitting Heart Rate Pre-Dialysis 62 BPM Temperatu re Post-Dialysis 98.4 degF Standing Heart Rate Pre-Dialysis 64 BPM Temperature Pre-Dialysis 98.3 degF October 07, 2024 In-Center Hemodialysis Treatment [id number]:56:29.000Z 0944-26-66Y98:56:05.000Z BP Sitting (Pre-Dialysis) 147/67 mmHg BP Sitting (Post-Dialysis) 135/65 mmHg Concurrent Access: falseAV Graft Upper Arm (Left) Arterial BP Standing (Pre-Dialysis) 134/62 mmHg Sitting Heart Rate Post-Dialysis 62 BPM Sitting Heart Rate Pre-Dialysis 60 BPM Temperatu re Post-Dialysis 98 degF Standing Heart Rate Pre-Dialysis 62 BPM Temperature Pre-Dialysis 98.5 degF October 03, 2024 In-Center Hemodialysis Treatment [id number]:09:00.000Z 6567-09-27R68:04:45.000Z BP Sitting (Pre-Dialysis) 118/54 mmHg BP Sitting (Post-Dialysis) 147/60 mmHg Concurrent Access: falseAV Graft Upper Arm (Left) Arterial BP Standing (Pre-Dialysis) 111/67 mmHg Sitti ng Heart Rate Post-Dialysis 60 BPM Sitting Heart Rate Pre-Dialysis 60 BPM Temperatu re Post-Dialysis 97.8 degF Standing Heart Rate Pre-Dialysis 65 BPM Temperature Pre-Dialysis 98.1 degF October 01, 2024 In-Center Hemodialysis Treatment 5003-52-91Q38:05:00.000Z 8830-79-94X40:06:14.000Z BP Sitting (Pre-Dialysis) 128/61 mmHg BP Sitting (Post-Dialysis) 119/56 mmHg Concurrent Access: falseAV Graft Upper Arm (Left) Arterial BP Standing (Pre-Dialysis) 128/71 mmHg BP Standing (P ost-Dialysis) 131/66 mmHg Sitting Heart Rate Pre-Dialysis 62 BPM Sitting Heart Rate Post-Dialysis 59 BPM Standing Heart Rate Pre-Dialysis 65 BPM Standing Heart Rate Post-Dialysis 62 BPM Temperature Pre-Dialysis 98.3 degF Temperature Post -Dialysis 98 degF September 29, 2024 In-Center Hemodialysis Treatment 3913-57-84V80:01:26.000Z 9206-15-04H38:03:56.000Z BP Sitting (Pre-Dialysis) 136/66 mmHg BP Sitting (Post-Dialysis) 114/62 mmHg Concurrent Access: falseAV Graft Upper Arm (Left) Arterial BP Standing (Pre-Dialysis) 132/61 mmHg BP Standing (P ost-Dialysis) 106/62 mmHg Sitting Heart Rate Pre-Dialysis 66 BPM Sitting Heart Rate Post-Dialysis 87 BPM Standing Heart Rate Pre-Dialysis 69 BPM Standing Heart Rate Post-Dialysis 86 BPM Temperature Pre-Dialysis 98.5 degF Temperature Post -Dialysis 98.1 degF September 26, 2024 In-Center Hemodialysis Treatment [id number]:24:00.000Z 5145-80-92M07:55:01.000Z BP Sitting (Pre-Dialysis) 133/76 mmHg BP Sitting (Post-Dialysis) 129/66 mmHg Concurrent Access: falseAV Graft Upper Arm (Left) Arterial BP Standing (Pre-Dialysis) 123/66 mmHg Sitting Heart Rate Post-Dialysis 59 BPM Sitting Heart Rate Pre-Dialysis 65 BPM Standing Heart Rate Pre-Dialysis 65 BPM Temperature Pre-Dialysis 98.3 degF September 22, 2024 In-Center Hemodialysis Treatment 7936-48-01U22:04:00.000Z 6861-77-71Q27:09:02.000Z BP Sitting (Pre-Dialysis) 124/53 mmHg BP Sitting (Post-Dialysis) 135/63 mmHg Concurrent Access: falseAV Graft Upper Arm (Left) Arterial BP Standing (Pre-Dialysis) 120/58 mmHg Sitti ng Heart Rate Post-Dialysis 66 BPM Sitting Heart Rate Pre-Dialysis 59 BPM Temperatu re Post-Dialysis 98.7 degF Standing Heart Rate Pre-Dialysis 60 BPM Temperature Pre-Dialysis 98.4 degF September 19, 2024 In-Center Hemodialysis Treatment 2922-50-48X76:01:48.000Z 6798-40-58H76:54:18.000Z BP Sitting (Pre-Dialysis) 128/64 mmHg BP Sitting (Post-Dialysis) 128/67 mmHg Concurrent Access: falseAV Graft Upper Arm (Left) Arterial Sitting Heart Rate Pre-Dialysis 61 BPM Sitting H eart Rate Post-Dialysis 63 BPM Temperature Pre-Dialysis 98.2 degF Temperature Post -Dialysis 98.2 degF September 17, 2024 In-Center Hemodialysis Treatment [id number]:58:15.000Z 8182-46-36C40:57:50.000Z BP Sitting (Pre-Dialysis) 130/62 mmHg BP Sitting (Post-Dialysis) 111/52 mmHg Concurrent Access: falseAV Graft Upper Arm (Left) Arterial BP Standing (Pre-Dialysis) 133/68 mmHg Sitti ng Heart Rate Post-Dialysis 62 BPM Sitting Heart Rate Pre-Dialysis 60 BPM Temperatu re Post-Dialysis 98.7 degF Standing Heart Rate Pre-Dialysis 63 BPM Temperature Pre-Dialysis 98.3 degF September 15, 2024 In-Center Hemodialysis Treatment 7737-30-00S13:57:39.000Z 2787-56-53F21:56:00.000Z BP Sitting (Pre-Dialysis) 135/71 mmHg BP Sitting (Post-Dialysis) 121/61 mmHg Concurrent Access: falseAV Graft Upper Arm (Left) Arterial BP Standing (Pre-Dialysis) 131/74 mmHg BP Standing (P ost-Dialysis) 114/63 mmHg Sitting Heart Rate Pre-Dialysis 60 BPM Sitting Heart Rate Post-Dialysis 62 BPM Standing Heart Rate Pre-Dialysis 63 BPM Standing Heart Rate Post-Dialysis 65 BPM Temperature Pre-Dialysis 98.6 degF Temperature Post -Dialysis 96.4 degF September 12, 2024 In-Center Hemodialysis Treatment 8263-30-34B65:57:00.000Z 4268-71-08I26:58:02.000Z BP Sitting (Pre-Dialysis) 124/60 mmHg BP Sitting (Post-Dialysis) 112/48 mmHg Concurrent Access: falseAV Graft Upper Arm (Left) Arterial Sitting Heart Rate Pre-Dialysis 61 BPM Sitting H eart Rate Post-Dialysis 61 BPM Temperature Pre-Dialysis 98.4 degF September 10, 2024 In-Center Hemodialysis Treatment 7376-11-07I66:04:41.000Z 6928-33-79U40:04:16.000Z BP Sitting (Pre-Dialysis) 131/63 mmHg BP Sitting (Post-Dialysis) 121/85 mmHg Concurrent Access: falseAV Graft Upper Arm (Left) Arterial BP Standing (Pre-Dialysis) 135/60 mmHg Sitti ng Heart Rate Post-Dialysis 118 BPM Sitting Heart Rate Pre-Dialysis 58 BPM Temperatu re Post-Dialysis 98.4 degF Standing Heart Rate Pre-Dialysis 61 BPM Temperature Pre-Dialysis 98.7 degF September 08, 2024 In-Center Hemodialysis Treatment 1192-56-81N90:04:47.000Z 2413-23-39Z25:12:17.000Z BP Sitting (Pre-Dialysis) 120/64 mmHg BP Sitting (Post-Dialysis) 121/58 mmHg Concurrent Access: falseAV Graft Upper Arm (Left) Arterial BP Standing (Pre-Dialysis) 122/62 mmHg BP Standing (P ost-Dialysis) 115/58 mmHg Sitting Heart Rate Pre-Dialysis 58 BPM Sitting Heart Rate Post-Dialysis 60 BPM Standing Heart Rate Pre-Dialysis 59 BPM Standing Heart Rate Post-Dialysis 61 BPM Temperature Pre-Dialysis 98.7 degF Temperature Post -Dialysis 98.5 degF September 05, 2024 In-Center Hemodialysis Treatment 9443-13-12J95:02:43.000Z 2496-51-78B40:02:18.000Z BP Sitting (Pre-Dialysis) 124/75 mmHg BP Sitting (Post-Dialysis) 117/59 mmHg Concurrent Access: falseAV Graft Upper Arm (Left) Arterial Sitting Heart Rate Pre-Dialysis 59 BPM Sitting H eart Rate Post-Dialysis 60 BPM Temperature Pre-Dialysis 98 degF Temperature Post -Dialysis 98.4 degF September 03, 2024 In-Center Hemodialysis Treatment 5541-61-38X37:05:52.000Z 0563-85-83D48:15:52.000Z BP Sitting (Pre-Dialysis) 131/60 mmHg BP Sitting (Post-Dialysis) 146/70 mmHg Concurrent Access: falseAV Graft Upper Arm (Left) Arterial BP Standing (Pre-Dialysis) 112/68 mmHg Sitting Heart Rate Post-Dialysis 63 BPM Sitting Heart Rate Pre-Dialysis 58 BPM Temperatu re Post-Dialysis 98 degF Standing Heart Rate Pre-Dialysis 60 BPM Temperature Pre-Dialysis 98 degF September 01, 2024 In-Center Hemodialysis Treatment 2380-04-95B27:00:50.000Z 5537-36-55E29:00:50.000Z BP Sitting (Pre-Dialysis) 113/63 mmHg BP Sitting (Post-Dialysis) 12/64 mmHg Concurrent Access: falseAV Graft Upper Arm (Left) Arterial BP Standing (Pre-Dialysis) 115/60 mmHg Sitti ng Heart Rate Post-Dialysis 57 BPM Sitting Heart Rate Pre-Dialysis 57 BPM Temperatu re Post-Dialysis 98.8 degF Standing Heart Rate Pre-Dialysis 58 BPM Temperature Pre-Dialysis 98.9 degF August 29, 2024 In-Center Hemodialysis Treatment 2739-24-91Z69:58:04.000Z 5258-35-15Z53:58:04.000Z BP Sitting (Pre-Dialysis) 115/59 mmHg BP Sitting (Post-Dialysis) 125/65 mmHg Concurrent Access: falseAV Graft Upper Arm (Left) Arterial BP Standing (Pre-Dialysis) 119/63 mmHg Sitti ng Heart Rate Post-Dialysis 59 BPM Sitting Heart Rate Pre-Dialysis 59 BPM Temperatu re Post-Dialysis 98.1 degF Standing Heart Rate Pre-Dialysis 61 BPM Temperature Pre-Dialysis 98.3 degF August 27, 2024 In-Center Hemodialysis Treatment 5718-18-82T45:00:00.000Z 7634-25-68R32:01:45.000Z BP Sitting (Pre-Dialysis) 119/56 mmHg BP Sitting (Post-Dialysis) 118/63 mmHg Concurrent Access: falseAV Graft Upper Arm (Left) Arterial BP Standing (Pre-Dialysis) 117/61 mmHg BP Standing (P ost-Dialysis) 105/50 mmHg Sitting Heart Rate Pre-Dialysis 59 BPM Sitting Heart Rate Post-Dialysis 62 BPM Standing Heart Rate Pre-Dialysis 62 BPM Standing Heart Rate Post-Dialysis 81 BPM Temperature Pre-Dialysis 97.7 degF Temperature Post -Dialysis 98.5 degF August 25, 2024 In-Center Hemodialysis Treatment 2956-48-97K68:11:18.000Z 0908-68-48O65:17:33.000Z BP Sitting (Pre-Dialysis) 102/57 mmHg BP Sitting (Post-Dialysis) 108/54 mmHg Concurrent Access: falseAV Graft Upper Arm (Left) Arterial BP Standing (Pre-Dialysis) 98/58 mmHg BP Standing (P ost-Dialysis) 113/60 mmHg Sitting Heart Rate Pre-Dialysis 68 BPM Sitting Heart Rate Post-Dialysis 68 BPM Standing Heart Rate Pre-Dialysis 68 BPM Standing Heart Rate Post-Dialysis 70 BPM Temperature Pre-Dialysis 98.4 degF Temperature Post -Dialysis 98.5 degF August 22, 2024 In-Center Hemodialysis Treatment 7893-81-17W01:11:00.000Z 4208-89-71W56:14:41.000Z BP Sitting (Pre-Dialysis) 132/66 mmHg BP Sitting (Post-Dialysis) 116/68 mmHg Concurrent Access: falseAV Graft Upper Arm (Left) Arterial Sitting Heart Rate Pre-Dialysis 71 BPM BP Standi ng (Post-Dialysis) 100/52 mmHg Temperature Pre-Dialysis 98 degF Sitting Heart Ra te Post-Dialysis 66 BPM Standing Heart Rate Post-Cate lysis 70 BPM Temperature Post-Dialysis 98 .2 degF August 12, 2024 In-Center Hemodialysis Treatment 8880-69-85F51:10:26.000Z 2643-28-27K00:12:06.000Z BP Sitting (Pre-Dialysis) 133/69 mmHg BP Sitting (Post-Dialysis) 147/74 mmHg Concurrent Access: falseAV Graft Upper Arm (Left) Arterial Sitting Heart Rate Pre-Dialysis 57 BPM Sitting H eart Rate Post-Dialysis 68 BPM Temperature Pre-Dialysis 98 degF Temperature Post -Dialysis 98.1 degF August 08, 2024 In-Center Hemodialysis Treatment 5738-28-68S27:11:16.000Z 3743-04-27C01:27:06.000Z BP Sitting (Pre-Dialysis) 130/61 mmHg BP Sitting (Post-Dialysis) 115/59 mmHg Concurrent Access: falseAV Graft Upper Arm (Left) Arterial BP Standing (Pre-Dialysis) 126/67 mmHg Sitti ng Heart Rate Post-Dialysis 65 BPM Sitting Heart Rate Pre-Dialysis 66 BPM Temperatu re Post-Dialysis 98.5 degF Standing Heart Rate Pre-Dialysis 69 BPM Temperature Pre-Dialysis 98.6 degF August 07, 2024 In-Center Hemodialysis Treatment 9077-83-40G70:15:19.000Z 8892-69-19R74:21:09.000Z BP Sitting (Pre-Dialysis) 133/73 mmHg BP Sitting (Post-Dialysis) 137/61 mmHg Concurrent Access: falseAV Graft Upper Arm (Left) Arterial Sitting Heart Rate Pre-Dialysis 59 BPM Sitting H eart Rate Post-Dialysis 58 BPM Temperature Pre-Dialysis 98.3 degF Temperature Post -Dialysis 98.2 degF August 05, 2024 In-Center Hemodialysis Treatment 2279-57-52W15:01:00.000Z 9275-09-81A27:23:18.000Z BP Sitting (Pre-Dialysis) 114/56 mmHg BP Sitting (Post-Dialysis) 125/61 mmHg Concurrent Access: falseAV Graft Upper Arm (Left) Arterial BP Standing (Pre-Dialysis) 122/62 mmHg Sitting Heart Rate Post-Dialysis 60 BPM Sitting Heart Rate Pre-Dialysis 56 BPM Temperatu re Post-Dialysis 98 degF Standing Heart Rate Pre-Dialysis 59 BPM Temperature Pre-Dialysis 98.1 degF August 01, 2024 In-Center Hemodialysis Treatment 0409-70-15L95:58:06.000Z 4429-25-82Y96:58:00.000Z BP Sitting (Pre-Dialysis) 123/68 mmHg BP Sitting (Post-Dialysis) 135/60 mmHg Concurrent Access: falseAV Graft Upper Arm (Left) Arterial Sitting Heart Rate Pre-Dialysis 68 BPM Sitting H eart Rate Post-Dialysis 58 BPM Temperature Pre-Dialysis 98.7 degF Temperature Post -Dialysis 98 degF July 30, 2024 In-Center Hemodialysis Treatment 6570-63-74F51:05:44.000Z 2120-08-44V41:05:19.000Z BP Sitting (Pre-Dialysis) 131/65 mmHg BP Sitting (Post-Dialysis) 119/62 mmHg Concurrent Access: falseAV Graft Upper Arm (Left) Arterial BP Standing (Pre-Dialysis) 133/66 mmHg Sitti ng Heart Rate Post-Dialysis 63 BPM Sitting Heart Rate Pre-Dialysis 66 BPM Temperatu re Post-Dialysis 98.2 degF Standing Heart Rate Pre-Dialysis 69 BPM Temperature Pre-Dialysis 99.8 degF July 25, 2024 In-Center Hemodialysis Treatment 2419-80-86D01:59:35.000Z 9965-66-02U65:17:55.000Z BP Sitting (Pre-Dialysis) 120/61 mmHg BP Sitting (Post-Dialysis) 116/58 mmHg Concurrent Access: falseAV Graft Upper Arm (Left) Arterial Sitting Heart Rate Pre-Dialysis 62 BPM Sitting H eart Rate Post-Dialysis 61 BPM Temperature Pre-Dialysis 98 degF Temperature Post -Dialysis 98.2 degF July 23, 2024 In-Center Hemodialysis Treatment 7642-35-34C00:02:00.000Z 6845-35-26O37:03:01.000Z BP Sitting (Pre-Dialysis) 126/55 mmHg BP Sitting [...] degF July 21, 2024 In-Center Hemodialysis Treatment 9922-67-41I55:01:00.000Z 7788-66-14A93:33:25.000Z BP Sitting (Pre-Dialysis) 113/58 mmHg BP Sitting [...] degF July 18, 2024 In-Center Hemodialysis Treatment 3306-39-37V68:59:00.000Z 3458-57-00I53:10:00.000Z BP Sitting (Pre-Dialysis) 128/65 mmHg BP Sitting (Post-Dialysis) 135/58 mmHg Concurrent Access: falseAV Graft Upper Arm (Left) Arterial BP Standing (Pre-Dialysis) 140/64 mmHg Sitti ng Heart Rate Post-Dialysis 61 BPM Sitting Heart Rate Pre-Dialysis 60 BPM Temperatu re Post-Dialysis 97.2 degF Standing Heart Rate Pre-Dialysis 62 BPM Temperature Pre-Dialysis 98.6 degF July 16, 2024 In-Center Hemodialysis Treatment 4637-60-69R73:00:00.000Z 3932-68-37K59:01:09.000Z BP Sitting (Pre-Dialysis) 131/62 mmHg BP Sitting (Post-Dialysis) 109/51 mmHg Concurrent Access: falseAV Graft Upper Arm (Left) Arterial BP Standing (Pre-Dialysis) 127/62 mmHg Sitti ng Heart Rate Post-Dialysis 61 BPM Sitting Heart Rate Pre-Dialysis 60 BPM Temperatu re Post-Dialysis 99.8 degF Standing Heart Rate Pre-Dialysis 59 BPM Temperature Pre-Dialysis 96.3 degF July 14, 2024 In-Center Hemodialysis Treatment 4478-35-66C16:00:10.000Z 9448-78-49D15:32:40.000Z BP Sitting (Pre-Dialysis) 138/76 mmHg BP Sitting (Post-Dialysis) 133/65 mmHg Concurrent Access: falseAV Graft Upper Arm (Left) Arterial Sitting Heart Rate Pre-Dialysis 62 BPM Sitting H eart Rate Post-Dialysis 60 BPM Temperature Pre-Dialysis 98 degF Temperature Post -Dialysis 97.8 degF July 12, 2024 In-Center Hemodialysis Treatment 2629-27-51U98:57:00.000Z 3255-19-39R97:05:46.000Z BP Sitting (Pre-Dialysis) 144/68 mmHg BP Sitting (Post-Dialysis) 128/74 mmHg Concurrent Access: falseAV Graft Upper Arm (Left) Arterial Sitting Heart Rate Pre-Dialysis 63 BPM Sitting H eart Rate Post-Dialysis 62 BPM Temperature Pre-Dialysis 98.2 degF Temperature Post -Dialysis 99 degF July 10, 2024 In-Center Hemodialysis Treatment 9525-27-42W32:08:54.000Z 2814-22-51L39:37:45.000Z BP Sitting (Pre-Dialysis) 118/56 mmHg BP Sitting (Post-Dialysis) 132/63 mmHg Concurrent Access: falseAV Graft Upper Arm (Left) Arterial Sitting Heart Rate Pre-Dialysis 63 BPM Sitting H eart Rate Post-Dialysis 69 BPM Temperature Pre-Dialysis 98.6 degF Temperature Post -Dialysis 97 degF July 07, 2024 In-Center Hemodialysis Treatment 2854-10-81F77:07:00.000Z 6806-72-60M63:06:23.000Z BP Sitting (Pre-Dialysis) 118/56 mmHg BP Sitting (Post-Dialysis) 130/67 mmHg Concurrent Access: falseAV Graft Upper Arm (Left) Arterial Sitting Heart Rate Pre-Dialysis 64 BPM Sitting H eart Rate Post-Dialysis 65 BPM Temperature Pre-Dialysis 98.7 degF Temperature Post -Dialysis 96.4 degF July 04, 2024 In-Center Hemodialysis Treatment 4772-08-08X37:53:00.000Z 2320-39-75M19:58:31.000Z BP Sitting (Pre-Dialysis) 127/64 mmHg BP Sitting (Post-Dialysis) 138/66 mmHg Concurrent Access: falseAV Graft Upper Arm (Left) Arterial Sitting Heart Rate Pre-Dialysis 63 BPM Sitting H eart Rate Post-Dialysis 59 BPM Temperature Pre-Dialysis 98.2 degF Temperature Post -Dialysis 98 degF July 01, 2024 In-Center Hemodialysis Treatment 5560-24-10U26:00:00.000Z 1930-45-09V99:07:55.000Z BP Sitting (Pre-Dialysis) 113/44 mmHg BP Sitting (Post-Dialysis) 113/54 mmHg Concurrent Access: falseAV Graft Upper Arm (Left) Arterial Sitting Heart Rate Pre-Dialysis 65 BPM Sitting H eart Rate Post-Dialysis 62 BPM Temperature Pre-Dialysis 97.9 degF Temperature Post -Dialysis 98.2 degF June 29, 2024 In-Center Hemodialysis Treatment 0129-26-77T14:03:07.000Z 7114-02-82B04:04:46.000Z BP Sitting (Pre-Dialysis) 141/68 mmHg BP Sitting (Post-Dialysis) 134/65 mmHg Concurrent Access: falseAV Graft Upper Arm (Left) Arterial Sitting Heart Rate Pre-Dialysis 66 BPM Sitting H eart Rate Post-Dialysis 63 BPM Temperature Pre-Dialysis 98.4 degF Temperature Post -Dialysis 98.7 degF June 27, 2024 In-Center Hemodialysis Treatment 1799-70-70A02:09:11.000Z 5697-95-24H83:30:01.000Z BP Sitting (Pre-Dialysis) 111/61 mmHg BP Sitting (Post-Dialysis) 115/57 mmHg Concurrent Access: falseAV Graft Upper Arm (Left) Arterial Sitting Heart Rate Pre-Dialysis 60 BPM Sitting H eart Rate Post-Dialysis 63 BPM Temperature Pre-Dialysis 98.4 degF Temperature Post -Dialysis 98.7 degF June 24, 2024 In-Center Hemodialysis Treatment 8331-44-52L63:13:00.000Z 7209-41-84P90:14:36.000Z BP Sitting (Pre-Dialysis) 111/59 mmHg BP Sitting (Post-Dialysis) 111/53 mmHg Concurrent Access: falseAV Graft Upper Arm (Left) Arterial Sitting Heart Rate Pre-Dialysis 63 BPM Sitting H eart Rate Post-Dialysis 67 BPM Temperature Pre-Dialysis 98.7 degF Temperature Post -Dialysis 98.1 degF June 22, 2024 In-Center Hemodialysis Treatment 1764-36-33A57:03:00.000Z 1779-10-71B39:16:33.000Z BP Sitting (Pre-Dialysis) 123/56 mmHg BP Sitting (Post-Dialysis) 126/67 mmHg Concurrent Access: falseAV Graft Upper Arm (Left) Arterial Sitting Heart Rate Pre-Dialysis 61 BPM Sitting H eart Rate Post-Dialysis 64 BPM Temperature Pre-Dialysis 97.8 degF Temperature Post -Dialysis 98.6 degF June 20, 2024 In-Center Hemodialysis Treatment 6427-89-70S85:10:49.000Z 9241-91-92Q30:13:44.000Z BP Sitting (Pre-Dialysis) 115/75 mmHg BP Sitting (Post-Dialysis) 109/51 mmHg Concurrent Access: falseAV Graft Upper Arm (Left) Arterial Sitting Heart Rate Pre-Dialysis 65 BPM Sitting H eart Rate Post-Dialysis 68 BPM Temperature Pre-Dialysis 98.4 degF Temperature Post -Dialysis 98.5 degF June 16, 2024 In-Center Hemodialysis Treatment 7418-52-14T33:04:00.000Z 3383-13-73I56:37:16.000Z BP Sitting (Pre-Dialysis) 112/57 mmHg BP Sitting (Post-Dialysis) 109/53 mmHg Concurrent Access: falseAV Graft Upper Arm (Left) Arterial Sitting Heart Rate Pre-Dialysis 57 BPM Sitting H eart Rate Post-Dialysis 59 BPM Temperature Pre-Dialysis 97.9 degF Temperature Post -Dialysis 98 degF June 09, 2024 In-Center Hemodialysis Treatment 4324-68-97U51:11:00.000Z 3959-59-64F16:23:11.000Z BP Sitting (Pre-Dialysis) 120/56 mmHg BP Sitting (Post-Dialysis) 122/59 mmHg Concurrent Access: falseAV Graft Upper Arm (Left) Arterial Sitting Heart Rate Pre-Dialysis 61 BPM Sitting H eart Rate Post-Dialysis 66 BPM Temperature Pre-Dialysis 98.2 degF Temperature Post -Dialysis 98 degF June 06, 2024 In-Center Hemodialysis Treatment 8105-06-44T14:54:00.000Z 5087-50-29S15:55:25.000Z BP Sitting (Pre-Dialysis) 118/59 mmHg BP Sitting (Post-Dialysis) 127/62 mmHg Concurrent Access: falseAV Graft Upper Arm (Left) Arterial Sitting Heart Rate Pre-Dialysis 62 BPM Sitting H eart Rate Post-Dialysis 70 BPM Temperature Pre-Dialysis 99.5 degF June 05, 2024 In-Center Hemodialysis Treatment 2576-48-19X40:59:00.000Z 1793-38-80T48:58:01.000Z BP Sitting (Pre-Dialysis) 131/66 mmHg BP Sitting (Post-Dialysis) 131/62 mmHg Concurrent Access: falseAV Graft Upper Arm (Left) Arterial Sitting Heart Rate Pre-Dialysis 61 BPM Sitting H eart Rate Post-Dialysis 69 BPM Temperature Pre-Dialysis 97.9 degF Temperature Post -Dialysis 98.6 degF June 03, 2024 In-Center Hemodialysis Treatment [id number]:55:00.000Z 7493-08-86I74:56:33.000Z BP Sitting (Pre-Dialysis) 116/61 mmHg BP Sitting (Post-Dialysis) 138/63 mmHg Concurrent Access: falseAV Graft Upper Arm (Left) Arterial Sitting Heart Rate Pre-Dialysis 61 BPM Sitting H eart Rate Post-Dialysis 66 BPM Temperature Pre-Dialysis 99.4 degF Temperature Post -Dialysis 99.6 degF May 31, 2024 In-Center Hemodialysis Treatment 2724-66-64Y57:56:00.000Z 7351-39-90L65:57:17.000Z BP Sitting (Pre-Dialysis) 106/53 mmHg BP Sitting (Post-Dialysis) 139/74 mmHg Concurrent Access: falseAV Graft Upper Arm (Left) Arterial Sitting Heart Rate Pre-Dialysis 61 BPM Sitting H eart Rate Post-Dialysis 63 BPM Temperature Pre-Dialysis 98 degF Temperature Post -Dialysis 98.8 degF May 16, 2024 In-Center Hemodialysis Treatment 2892-36-00C04:06:00.000Z 1026-53-35W86:38:31.000Z BP Sitting (Pre-Dialysis) 120/72 mmHg BP Sitting [...] degF May 14, 2024 In-Center Hemodialysis Treatment 9285-13-54D00:00:00.000Z 7991-91-55R38:07:08.000Z BP Sitting (Pre-Dialysis) 119/58 mmHg BP Sitting [...] degF May 12, 2024 In-Center Hemodialysis Treatment 0616-41-71M23:01:00.000Z 9016-33-68P81:05:47.000Z BP Sitting (Pre-Dialysis) 120/61 mmHg BP Sitting [...] degF May 09, 2024 In-Center Hemodialysis Treatment 7642-93-97W38:03:09.000Z 4046-59-02Q00:10:14.000Z BP Sitting (Pre-Dialysis) 124/59 mmHg BP Sitting [...] degF May 05, 2024 In-Center Hemodialysis Treatment 2912-90-35W65:03:38.000Z 9869-47-47M77:04:03.000Z BP Sitting (Pre-Dialysis) 130/68 mmHg BP Sitting (Post-Dialysis) 138/63 mmHg Concurrent Access: falseAV Graft Upper Arm (Left) Arterial BP Standing (Pre-Dialysis) 132/66 mmHg BP Standing (P ost-Dialysis) 133/71 mmHg Sitting Heart Rate Pre-Dialysis 61 BPM Sitting Heart Rate Post-Dialysis 59 BPM Standing Heart Rate Pre-Dialysis 66 BPM Standing Heart Rate Post-Dialysis 60 BPM Temperature Pre-Dialysis 98.1 degF Temperature Post -Dialysis 98.4 degF May 03, 2024 In-Center Hemodialysis Treatment 5355-57-60E70:33:55.000Z 5772-96-01W12:33:30.000Z BP Sitting (Pre-Dialysis) 142/63 mmHg BP Sitting [...] degF April 30, 2024 In-Center Hemodialysis Treatment 4620-85-63I01:09:00.000Z 0200-93-75Z82:21:26.000Z BP Sitting (Pre-Dialysis) 147/64 mmHg BP Sitting (Post-Dialysis) 125/69 mmHg Concurrent Access: falseAV Graft Upper Arm (Left) Arterial Sitting Heart Rate Pre-Dialysis 62 BPM BP Standing (Post-Dialysis) 125/63 mmHg Temperature Pre-Dialysis 98.2 degF Sitting Heart Ra te Post-Dialysis 58 BPM Standing Heart Rate Post-Cate lysis 58 BPM Temperature Post-Dialysis 99 .2 degF April 28, 2024 In-Center Hemodialysis Treatment 7945-75-86A61:57:00.000Z 1487-33-21Z50:02:42.000Z BP Sitting (Pre-Dialysis) 144/70 mmHg BP Sitting [...] degF April 25, 2024 In-Center Hemodialysis Treatment 5351-49-18C84:01:00.000Z 7293-77-16P14:37:56.000Z BP Sitting (Pre-Dialysis) 127/63 mmHg BP Sitting [...] degF April 23, 2024 In-Center Hemodialysis Treatment 6571-46-30S48:06:00.000Z 7146-13-65D53:11:46.000Z BP Sitting (Pre-Dialysis) 132/69 mmHg BP Sitting (Post-Dialysis) 124/62 mmHg Concurrent Access: falseAV Graft Upper Arm (Left) Arterial BP Standing (Pre-Dialysis) 137/69 mmHg Sitti ng Heart Rate Post-Dialysis 61 BPM Sitting Heart Rate Pre-Dialysis 60 BPM Temperatu re Post-Dialysis 98.5 degF Standing Heart Rate Pre-Dialysis 60 BPM Temperature Pre-Dialysis 98.6 degF April 21, 2024 In-Center Hemodialysis Treatment 2557-90-58Z28:59:00.000Z 9089-11-68H60:04:34.000Z BP Sitting (Pre-Dialysis) 128/68 mmHg BP Sitting [...] degF April 18, 2024 In-Center Hemodialysis Treatment 7927-38-54V36:59:00.000Z 6343-76-18D01:03:13.000Z BP Sitting (Pre-Dialysis) 146/70 mmHg BP Sitting [...] degF April 16, 2024 In-Center Hemodialysis Treatment 0111-33-01O09:07:53.000Z 7621-97-57G46:17:28.000Z BP Sitting (Pre-Dialysis) 142/71 mmHg BP Sitting (Post-Dialysis) 125/62 mmHg Concurrent Access: falseAV Graft Upper Arm (Left) Arterial BP Standing (Pre-Dialysis) 143/63 mmHg Sitti ng Heart Rate Post-Dialysis 61 BPM Sitting Heart Rate Pre-Dialysis 61 BPM Temperatu re Post-Dialysis 98.7 degF Standing Heart Rate Pre-Dialysis 63 BPM Temperature Pre-Dialysis 98.3 degF April 14, 2024 In-Center Hemodialysis Treatment 6117-58-57Y67:55:00.000Z 2579-57-43L67:03:48.000Z BP Sitting (Pre-Dialysis) 141/71 mmHg BP Sitting [...] degF April 11, 2024 In-Center Hemodialysis Treatment 6468-67-07N44:00:21.000Z 6387-45-43I36:29:56.000Z BP Sitting (Pre-Dialysis) 134/67 mmHg BP Sitting (Post-Dialysis) 115/60 mmHg Concurrent Access: falseAV Graft Upper Arm (Left) Arterial BP Standing (Pre-Dialysis) 132/71 mmHg BP Standing (P ost-Dialysis) 108/59 mmHg Sitting Heart Rate Pre-Dialysis 66 BPM Sitting Heart Rate Post-Dialysis 60 BPM Standing Heart Rate Pre-Dialysis 68 BPM Standing Heart Rate Post-Dialysis 64 BPM Temperature Pre-Dialysis 98.2 degF Temperature Post -Dialysis 98.1 degF April 09, 2024 In-Center Hemodialysis Treatment 8503-50-68G94:01:00.000Z 3692-89-30E47:13:34.000Z BP Sitting (Pre-Dialysis) 127/70 mmHg BP Sitting (Post-Dialysis) 128/59 mmHg Concurrent Access: falseAV Graft Upper Arm (Left) Arterial BP Standing (Pre-Dialysis) 127/62 mmHg Sitti ng Heart Rate Post-Dialysis 59 BPM Sitting Heart Rate Pre-Dialysis 62 BPM Temperatu re Post-Dialysis 98.3 degF Standing Heart Rate Pre-Dialysis 61 BPM Temperature Pre-Dialysis 98.1 degF April 07, 2024 In-Center Hemodialysis Treatment 2577-60-65L08:04:00.000Z 4191-54-22F12:09:59.000Z BP Sitting (Pre-Dialysis) 123/69 mmHg BP Sitting [...] degF April 04, 2024 In-Center Hemodialysis Treatment 0293-79-98O73:59:00.000Z 6759-20-28Q78:18:56.000Z BP Sitting (Pre-Dialysis) 130/70 mmHg BP Sitting (Post-Dialysis) 120/65 mmHg Concurrent Access: falseAV Graft Upper Arm (Left) Arterial BP Standing (Pre-Dialysis) 115/59 mmHg Sitti ng Heart Rate Post-Dialysis 63 BPM Sitting Heart Rate Pre-Dialysis 60 BPM Temperatu re Post-Dialysis 98.6 degF Standing Heart Rate Pre-Dialysis 63 BPM Temperature Pre-Dialysis 98.4 degF April 02, 2024 In-Center Hemodialysis Treatment 5534-44-29S50:59:00.000Z 7625-55-61R30:03:34.000Z BP Sitting (Pre-Dialysis) 131/67 mmHg BP Sitting [...] degF March 31, 2024 In-Center Hemodialysis Treatment 8315-77-75Q86:01:00.000Z 4303-08-95N93:05:11.000Z BP Sitting (Pre-Dialysis) 114/61 mmHg BP Sitting (Post-Dialysis) 121/63 mmHg Concurrent Access: falseAV Graft Upper Arm (Left) Arterial BP Standing (Pre-Dialysis) 116/44 mmHg Sitti ng Heart Rate Post-Dialysis 60 BPM Sitting Heart Rate Pre-Dialysis 60 BPM Temperatu re Post-Dialysis 98.7 degF Standing Heart Rate Pre-Dialysis 62 BPM Temperature Pre-Dialysis 98.4 degF March 28, 2024 In-Center Hemodialysis Treatment 8681-36-28M11:58:00.000Z 0010-45-12O95:02:46.000Z BP Sitting (Pre-Dialysis) 142/72 mmHg BP Sitting [...] degF March 26, 2024 In-Center Hemodialysis Treatment 9822-15-20I99:20:33.000Z 8529-95-85H75:30:33.000Z BP Sitting (Pre-Dialysis) 133/70 mmHg BP Sitting [...] degF March 24, 2024 In-Center Hemodialysis Treatment 1425-08-60L99:16:53.000Z 2084-00-39J16:35:38.000Z BP Sitting (Pre-Dialysis) 125/58 mmHg BP Sitting [...] degF March 21, 2024 In-Center Hemodialysis Treatment 7520-30-50I36:54:00.000Z 3416-64-29H97:57:31.000Z BP Sitting (Pre-Dialysis) 125/61 mmHg BP Sitting (Post-Dialysis) 114/66 mmHg Concurrent Access: falseAV Graft Upper Arm (Left) Arterial BP Standing (Pre-Dialysis) 121/62 mmHg BP Standing (P ost-Dialysis) 105/58 mmHg Sitting Heart Rate Pre-Dialysis 63 BPM Sitting Heart Rate Post-Dialysis 63 BPM Standing Heart Rate Pre-Dialysis 65 BPM Standing Heart Rate Post-Dialysis 63 BPM Temperature Pre-Dialysis 98.2 degF Temperature Post -Dialysis 98.6 degF March 19, 2024 In-Center Hemodialysis Treatment 5242-44-77I32:03:00.000Z 9379-65-12T25:07:27.000Z BP Sitting (Pre-Dialysis) 136/63 mmHg BP Sitting [...] degF March 17, 2024 In-Center Hemodialysis Treatment 8825-98-48Y14:02:00.000Z 5141-68-64L44:18:53.000Z BP Sitting (Pre-Dialysis) 111/61 mmHg BP Sitting (Post-Dialysis) 113/59 mmHg Concurrent Access: falseAV Graft Upper Arm (Left) Arterial BP Standing (Pre-Dialysis) 112/62 mmHg Sitti ng Heart Rate Post-Dialysis 59 BPM Sitting Heart Rate Pre-Dialysis 60 BPM Temperatu re Post-Dialysis 98.3 degF Standing Heart Rate Pre-Dialysis 61 BPM Temperature Pre-Dialysis 98.4 degF March 14, 2024 In-Center Hemodialysis Treatment 9075-65-86J73:52:54.000Z 8245-62-69P04:52:29.000Z BP Sitting (Pre-Dialysis) 159/73 mmHg BP Sitting [...] degF March 12, 2024 In-Center Hemodialysis Treatment 9387-89-64U91:06:00.000Z 4885-90-56P55:09:08.000Z BP Sitting (Pre-Dialysis) 131/62 mmHg BP Sitting [...] degF March 07, 2024 In-Center Hemodialysis Treatment 8268-74-19B74:54:00.000Z 9702-86-11M48:28:24.000Z BP Sitting (Pre-Dialysis) 155/75 mmHg BP Sitting (Post-Dialysis) 108/61 mmHg Concurrent Access: falseAV Graft Upper Arm (Left) Arterial BP Standing (Pre-Dialysis) 131/69 mmHg Sitti ng Heart Rate Post-Dialysis 60 BPM Sitting Heart Rate Pre-Dialysis 68 BPM Temperatu re Post-Dialysis 98.5 degF Standing Heart Rate Pre-Dialysis 69 BPM Temperature Pre-Dialysis 98.4 degF March 05, 2024 In-Center Hemodialysis Treatment 0617-36-14H65:15:00.000Z 7089-90-40E80:20:00.000Z BP Sitting (Pre-Dialysis) 150/73 mmHg BP Sitting [...] degF March 03, 2024 In-Center Hemodialysis Treatment 7146-09-42S98:55:00.000Z 9821-53-00I98:59:34.000Z BP Sitting (Pre-Dialysis) 139/68 mmHg BP Sitting [...] degF February 29, 2024 In-Center Hemodialysis Treatment 5773-42-98N22:58:01.000Z 0304-21-05B03:27:36.000Z BP Sitting (Pre-Dialysis) 148/76 mmHg BP Sitting [...] degF February 27, 2024 In-Center Hemodialysis Treatment 0604-90-89Y54:55:00.000Z 3573-78-94X41:15:47.000Z BP Sitting (Pre-Dialysis) 120/59 mmHg BP Sitting (Post-Dialysis) 124/61 mmHg Concurrent Access: falseAV Graft Upper Arm (Left) Arterial BP Standing (Pre-Dialysis) 116/60 mmHg BP Standing (P ost-Dialysis) 111/59 mmHg Sitting Heart Rate Pre-Dialysis 61 BPM Sitting Heart Rate Post-Dialysis 58 BPM Standing Heart Rate Pre-Dialysis 62 BPM Standing Heart Rate Post-Dialysis 62 BPM Temperature Pre-Dialysis 98.4 degF February 25, 2024 In-Center Hemodialysis Treatment 8754-66-57P18:00:00.000Z 3093-86-04W87:07:02.000Z BP Sitting (Pre-Dialysis) 105/60 mmHg BP Sitting (Post-Dialysis) 115/56 mmHg Concurrent Access: falseAV Graft Upper Arm (Left) Arterial BP Standing (Pre-Dialysis) 115/58 mmHg Sitti ng Heart Rate Post-Dialysis 60 BPM Sitting Heart Rate Pre-Dialysis 66 BPM Temperatu re Post-Dialysis 98.3 degF Standing Heart Rate Pre-Dialysis 62 BPM Temperature Pre-Dialysis 98 degF February 22, 2024 In-Center Hemodialysis Treatment 2500-22-14X09:09:00.000Z 1913-01-95S98:08:45.000Z BP Sitting (Pre-Dialysis) 133/61 mmHg BP Sitting [...] degF February 18, 2024 In-Center Hemodialysis Treatment 8654-27-72L35:55:00.000Z 0371-03-90D80:29:31.000Z BP Sitting (Pre-Dialysis) 123/63 mmHg BP Sitting [...] Post -Dialysis 98.3 degF February 15, 2024 In-Center Hemodialysis Treatment 2898-67-42Q03:54:00.000Z 6111-61-01X81:26:37.000Z BP Sitting (Pre-Dialysis) 159/72 mmHg BP Sitting [...] degF February 13, 2024 In-Center Hemodialysis Treatment 8389-96-03L00:03:00.000Z 1534-41-66A90:06:08.000Z BP Sitting (Pre-Dialysis) 137/66 mmHg BP Sitting [...] degF February 11, 2024 In-Center Hemodialysis Treatment 9907-34-78R64:55:00.000Z 5488-88-36K94:57:36.000Z BP Sitting (Pre-Dialysis) 132/64 mmHg BP Sitting [...] degF February 08, 2024 In-Center Hemodialysis Treatment 4445-58-64X59:01:07.000Z 3891-90-29U21:31:07.000Z BP Sitting (Pre-Dialysis) 148/68 mmHg BP Sitting (Post-Dialysis) 121/59 mmHg Concurrent Access: falseAV Graft Upper Arm (Left) Arterial BP Standing (Pre-Dialysis) 142/63 mmHg Sitting Heart Rate Post-Dialysis 60 BPM Sitting Heart Rate Pre-Dialysis 58 BPM Temperatu re Post-Dialysis 98 degF Standing Heart Rate Pre-Dialysis 60 BPM Temperature Pre-Dialysis 98.2 degF February 06, 2024 In-Center Hemodialysis Treatment 5835-69-77L51:59:16.000Z 6322-52-59O90:14:16.000Z BP Sitting (Pre-Dialysis) 136/65 mmHg BP Sitting [...] degF February 04, 2024 In-Center Hemodialysis Treatment 2219-80-99W89:06:00.000Z 2891-90-21K83:08:08.000Z BP Sitting (Pre-Dialysis) 123/64 mmHg BP Sitting [...] degF February 01, 2024 In-Center Hemodialysis Treatment 4950-89-57V27:04:00.000Z 4313-67-37T05:07:28.000Z BP Sitting (Pre-Dialysis) 108/55 mmHg BP Sitting (Post-Dialysis) 113/55 mmHg Concurrent Access: falseAV Graft Upper Arm (Left) Arterial BP Standing (Pre-Dialysis) 100/52 mmHg Sitti ng Heart Rate Post-Dialysis 59 BPM Sitting Heart Rate Pre-Dialysis 58 BPM Temperatu re Post-Dialysis 98.7 degF Standing Heart Rate Pre-Dialysis 72 BPM Temperature Pre-Dialysis 98.1 degF January 30, 2024 In-Center Hemodialysis Treatment 0402-59-03S45:02:00.000Z 2654-56-85F12:18:43.000Z BP Sitting (Pre-Dialysis) 118/61 mmHg BP Sitting [...] degF January 28, 2024 In-Center Hemodialysis Treatment 6161-37-60T65:59:00.000Z 2176-61-33Y56:23:15.000Z BP Sitting (Pre-Dialysis) 113/51 mmHg BP Sitting (Post-Dialysis) 11/59 mmHg Concurrent Access: falseAV Graft Upper Arm (Left) Arterial BP Standing (Pre-Dialysis) 103/55 mmHg Sitti ng Heart Rate Post-Dialysis 61 BPM Sitting Heart Rate Pre-Dialysis 58 BPM Temperatu re Post-Dialysis 98.5 degF Standing Heart Rate Pre-Dialysis 59 BPM Temperature Pre-Dialysis 98.3 degF January 25, 2024 In-Center Hemodialysis Treatment 8315-16-13S93:00:00.000Z 0931-74-38P09:03:10.000Z BP Sitting (Pre-Dialysis) 114/59 mmHg BP Sitting [...] degF January 23, 2024 In-Center Hemodialysis Treatment 3002-06-82G81:55:00.000Z 9201-82-28U96:42:37.000Z BP Sitting (Pre-Dialysis) 122/60 mmHg BP Sitting [...] degF January 21, 2024 In-Center Hemodialysis Treatment 4551-86-59K98:57:00.000Z 0446-85-43A19:54:50.000Z BP Sitting (Pre-Dialysis) 117/54 mmHg BP Sitting [...] degF January 18, 2024 In-Center Hemodialysis Treatment 9601-17-59M20:49:00.000Z 8925-38-91X98:58:22.000Z BP Sitting (Pre-Dialysis) 137/66 mmHg BP Sitting [...] degF January 16, 2024 In-Center Hemodialysis Treatment 9354-83-20H35:58:18.000Z 8133-01-66S81:58:18.000Z BP Sitting (Pre-Dialysis) 136/73 mmHg BP Sitting [...] degF January 14, 2024 In-Center Hemodialysis Treatment 1991-70-15V09:57:00.000Z 0891-55-24A16:59:43.000Z BP Sitting (Pre-Dialysis) 138/65 mmHg BP Sitting [...] degF January 11, 2024 In-Center Hemodialysis Treatment 7462-81-79B14:56:00.000Z 2912-74-36H84:47:50.000Z BP Sitting (Pre-Dialysis) 124/60 mmHg BP Sitting [...] degF January 09, 2024 In-Center Hemodialysis Treatment 6001-96-38U54:02:39.000Z 5041-43-27U14:01:24.000Z BP Sitting (Pre-Dialysis) 145/69 mmHg BP Sitting (Post-Dialysis) 129/64 mmHg Concurrent Access: falseAV Graft Upper Arm (Left) Arterial BP Standing (Pre-Dialysis) 138/66 mmHg Sitti ng Heart Rate Post-Dialysis 61 BPM Sitting Heart Rate Pre-Dialysis 60 BPM Temperatu re Post-Dialysis 98.3 degF Standing Heart Rate Pre-Dialysis 62 BPM Temperature Pre-Dialysis 98.4 degF January 07, 2024 In-Center Hemodialysis Treatment 4493-28-59M36:04:00.000Z 2279-00-01I28:06:00.000Z BP Sitting (Pre-Dialysis) 137/52 mmHg BP Sitting [...] degF January 04, 2024 In-Center Hemodialysis Treatment 2161-99-25R88:01:00.000Z 2362-13-35E67:02:22.000Z BP Sitting (Pre-Dialysis) 111/55 mmHg BP Sitting [...] degF January 02, 2024 In-Center Hemodialysis Treatment 7843-69-33O63:58:00.000Z 1775-88-18W99:24:00.000Z BP Sitting (Pre-Dialysis) 109/54 mmHg BP Sitting [...] degF December 31, 2023 In-Center Hemodialysis Treatment 3027-01-99X26:33:00.000Z 7451-47-15Q76:20:00.000Z BP Sitting (Pre-Dialysis) 132/60 mmHg BP Sitting (Post-Dialysis) 135/72 mmHg Concurrent Access: falseAV Graft Upper Arm (Left) Arterial BP Standing (Pre-Dialysis) 137/70 mmHg BP Standing (P ost-Dialysis) 128/66 mmHg Sitting Heart Rate Pre-Dialysis 63 BPM Sitting Heart Rate Post-Dialysis 67 BPM Standing Heart Rate Pre-Dialysis 66 BPM Standing Heart Rate Post-Dialysis 68 BPM Temperature Pre-Dialysis 98.3 degF December 28, 2023 In-Center Hemodialysis Treatment 4426-77-24E67:59:00.000Z 3245-64-64O52:46:04.000Z BP Sitting (Pre-Dialysis) 113/65 mmHg BP Sitting [...] degF December 26, 2023 In-Center Hemodialysis Treatment 0446-78-95R79:03:00.000Z 4230-10-88K26:05:57.000Z BP Sitting (Pre-Dialysis) 125/66 mmHg BP Sitting (Post-Dialysis) 124/59 mmHg Concurrent Access: falseAV Graft Upper Arm (Left) Arterial BP Standing (Pre-Dialysis) 92/67 mmHg Sitting Heart Rate Post-Dialysis 70 BPM Sitting Heart Rate Pre-Dialysis 63 BPM Temperatu re Post-Dialysis 98 degF Standing Heart Rate Pre-Dialysis 54 BPM Temperature Pre-Dialysis 98 degF December 24, 2023 In-Center Hemodialysis Treatment 2313-67-62L94:00:51.000Z 9735-92-87O81:04:11.000Z BP Sitting (Pre-Dialysis) 123/64 mmHg BP Sitting [...] degF December 21, 2023 In-Center Hemodialysis Treatment 8552-79-47Q28:01:00.000Z 0861-62-36R93:47:29.000Z BP Sitting (Pre-Dialysis) 124/60 mmHg BP Sitting [...] degF December 19, 2023 In-Center Hemodialysis Treatment 1916-32-82I54:59:00.000Z 9980-59-94G60:02:19.000Z BP Sitting (Pre-Dialysis) 129/65 mmHg BP Sitting (Post-Dialysis) 116/60 mmHg Concurrent Access: falseAV Graft Upper Arm (Left) Arterial BP Standing (Pre-Dialysis) 121/60 mmHg Sitti ng Heart Rate Post-Dialysis 66 BPM Sitting Heart Rate Pre-Dialysis 67 BPM Temperatu re Post-Dialysis 97.5 degF Standing Heart Rate Pre-Dialysis 69 BPM Temperature Pre-Dialysis 97.6 degF December 17, 2023 In-Center Hemodialysis Treatment 8938-79-75G93:01:00.000Z 3037-73-06U45:02:17.000Z BP Sitting (Pre-Dialysis) 124/60 mmHg BP Sitting (Post-Dialysis) 104/53 mmHg Concurrent Access: falseAV Graft Upper Arm (Left) Arterial BP Standing (Pre-Dialysis) 111/58 mmHg Sitti ng Heart Rate Post-Dialysis 62 BPM Sitting Heart Rate Pre-Dialysis 62 BPM Temperatu re Post-Dialysis 98.4 degF Standing Heart Rate Pre-Dialysis 62 BPM Temperature Pre-Dialysis 98.1 degF December 12, 2023 In-Center Hemodialysis Treatment 1311-23-34L64:52:00.000Z 3919-32-51U12:43:54.000Z BP Sitting (Pre-Dialysis) 129/66 mmHg BP Sitting (Post-Dialysis) 113/56 mmHg Concurrent Access: falseAV Graft Upper Arm (Left) Arterial BP Standing (Pre-Dialysis) 141/64 mmHg Sitti ng Heart Rate Post-Dialysis 60 BPM Sitting Heart Rate Pre-Dialysis 60 BPM Temperatu re Post-Dialysis 98.7 degF Standing Heart Rate Pre-Dialysis 61 BPM Temperature Pre-Dialysis 98.4 degF December 10, 2023 In-Center Hemodialysis Treatment 6478-21-32O71:01:39.000Z 9282-89-10N39:02:04.000Z BP Sitting (Pre-Dialysis) 97/51 mmHg BP Sitting (Post-Dialysis) 110/56 mmHg Concurrent Access: falseAV Graft Upper Arm (Left) Arterial BP Standing (Pre-Dialysis) 102/50 mmHg Sitti ng Heart Rate Post-Dialysis 57 BPM Sitting Heart Rate Pre-Dialysis 59 BPM Temperatu re Post-Dialysis 98.6 degF Standing Heart Rate Pre-Dialysis 59 BPM Temperature Pre-Dialysis 98.2 degF December 07, 2023 In-Center Hemodialysis Treatment 0027-50-97V00:01:00.000Z 9228-24-35H66:03:29.000Z BP Sitting (Pre-Dialysis) 114/58 mmHg BP Sitting [...] degF December 05, 2023 In-Center Hemodialysis Treatment 3613-81-23V56:02:00.000Z 3252-96-70F47:04:50.000Z BP Sitting (Pre-Dialysis) 144/73 mmHg BP Sitting [...] degF December 03, 2023 In-Center Hemodialysis Treatment 0600-11-11F70:00:00.000Z 7085-28-91K42:12:59.000Z BP Sitting (Pre-Dialysis) 130/72 mmHg BP Sitting [...] degF November 30, 2023 In-Center Hemodialysis Treatment 2391-68-46P82:59:07.000Z 4223-40-28W04:58:42.000Z BP Sitting (Pre-Dialysis) 131/70 mmHg BP Sitting (Post-Dialysis) 132/64 mmHg Concurrent Access: falseAV Graft Upper Arm (Left) Arterial BP Standing (Pre-Dialysis) 136/68 mmHg Sitti ng Heart Rate Post-Dialysis 60 BPM Sitting Heart Rate Pre-Dialysis 60 BPM Temperatu re Post-Dialysis 98.8 degF Standing Heart Rate Pre-Dialysis 61 BPM Temperature Pre-Dialysis 98.3 degF November 28, 2023 In-Center Hemodialysis Treatment 0597-10-53T07:55:00.000Z 1124-72-85L67:56:49.000Z BP Sitting (Pre-Dialysis) 144/68 mmHg BP Sitting [...] degF November 26, 2023 In-Center Hemodialysis Treatment 5399-10-78R91:02:47.000Z 9892-63-97K96:03:37.000Z BP Sitting (Pre-Dialysis) 124/63 mmHg BP Sitting [...] degF November 23, 2023 In-Center Hemodialysis Treatment 4753-25-58W30:58:51.000Z 6459-61-75D51:58:51.000Z BP Sitting (Pre-Dialysis) 134/65 mmHg BP Sitting [...] degF November 21, 2023 In-Center Hemodialysis Treatment 3111-80-13P08:00:00.000Z 8682-27-31G63:03:27.000Z BP Sitting (Pre-Dialysis) 132/71 mmHg BP Sitting [...] degF November 19, 2023 In-Center Hemodialysis Treatment 5519-96-17S34:55:55.000Z 4722-91-08U17:55:30.000Z BP Sitting (Pre-Dialysis) 138/72 mmHg BP Sitting (Post-Dialysis) 132/74 mmHg Concurrent Access: falseAV Graft Upper Arm (Left) Arterial BP Standing (Pre-Dialysis) 146/74 mmHg Sitti ng Heart Rate Post-Dialysis 78 BPM Sitting Heart Rate Pre-Dialysis 72 BPM Temperatu re Post-Dialysis 98.7 degF Standing Heart Rate Pre-Dialysis 74 BPM Temperature Pre-Dialysis 98.5 degF November 16, 2023 In-Center Hemodialysis Treatment 8607-86-01R71:57:00.000Z 7498-46-84Y84:59:42.000Z BP Sitting (Pre-Dialysis) 146/75 mmHg BP Sitting [...] degF November 14, 2023 In-Center Hemodialysis Treatment 5131-52-29T56:50:07.000Z 9968-28-30N44:50:57.000Z BP Sitting (Pre-Dialysis) 152/75 mmHg BP Sitting [...] degF November 12, 2023 In-Center Hemodialysis Treatment 3924-35-23B62:03:00.000Z 4036-72-88N36:05:11.000Z BP Sitting (Pre-Dialysis) 135/69 mmHg BP Sitting [...] degF November 09, 2023 In-Center Hemodialysis Treatment 4443-38-22B23:04:00.000Z 6719-22-53J72:06:23.000Z BP Sitting (Pre-Dialysis) 120/64 mmHg BP Sitting [...] degF November 07, 2023 In-Center Hemodialysis Treatment 3656-45-13T74:57:00.000Z 9899-04-19P10:59:22.000Z BP Sitting (Pre-Dialysis) 136/75 mmHg BP Sitting [...] degF November 05, 2023 In-Center Hemodialysis Treatment 9817-49-92D65:03:00.000Z 5539-84-45T17:04:37.000Z BP Sitting (Pre-Dialysis) 140/70 mmHg BP Sitting [...] degF October 19, 2023 In-Center Hemodialysis Treatment 0847-88-35B71:56:00.000Z 2330-05-66Q40:30:49.000Z BP Sitting (Pre-Dialysis) 174/91 mmHg BP Sitting [...] degF October 17, 2023 In-Center Hemodialysis Treatment 9629-43-06S97:04:52.000Z 0655-10-91T11:04:52.000Z BP Sitting (Pre-Dialysis) 181/82 mmHg BP Sitting [...] degF October 15, 2023 In-Center Hemodialysis Treatment 0170-28-12G82:05:00.000Z 5520-85-48V45:07:15.000Z BP Sitting (Pre-Dialysis) 164/80 mmHg BP Sitting (Post-Dialysis) 152/70 mmHg Concurrent Access: falseAV Graft Upper Arm (Left) Arterial BP Standing (Pre-Dialysis) 164/71 mmHg Sitting Heart Rate Post-Dialysis 55 BPM Sitting Heart Rate Pre-Dialysis 57 BPM Temperatu re Post-Dialysis 98 degF Standing Heart Rate Pre-Dialysis 58 BPM Temperature Pre-Dialysis 98.1 degF October 11, 2023 In-Center Hemodialysis Treatment 0123-80-15O28:13:00.000Z 8792-86-65F81:15:00.000Z BP Sitting (Pre-Dialysis) 190/84 mmHg BP Sitting [...] degF October 05, 2023 In-Center Hemodialysis Treatment 8975-24-06Q07:53:05.000Z 5590-98-00Z41:58:55.000Z BP Sitting (Pre-Dialysis) 178/85 mmHg BP Sitting (Post-Dialysis) 172/75 mmHg Concurrent Access: falseAV Graft Upper Arm (Left) Arterial BP Standing (Pre-Dialysis) 185/96 mmHg BP Standing (P ost-Dialysis) 170/78 mmHg Sitting Heart Rate Pre-Dialysis 57 BPM Sitting Heart Rate Post-Dialysis 56 BPM Standing Heart Rate Pre-Dialysis 61 BPM Standing Heart Rate Post-Dialysis 60 BPM Temperature Pre-Dialysis 98.1 degF Temperature Post -Dialysis 98.5 degF October 01, 2023 In-Center Hemodialysis Treatment 0984-76-47N47:00:38.000Z 3797-36-59Z02:36:53.000Z BP Sitting (Pre-Dialysis) 144/77 mmHg BP Sitting [...] degF September 28, 2023 In-Center Hemodialysis Treatment 7346-45-45B67:59:00.000Z 3815-78-77J67:01:16.000Z BP Sitting (Pre-Dialysis) 164/82 mmHg BP Sitting (Post-Dialysis) 148/97 mmHg Concurrent Access: falseAV Graft Upper Arm (Left) Arterial BP Standing (Pre-Dialysis) 170/74 mmHg Sitting Heart Rate Post-Dialysis 56 BPM Sitting Heart Rate Pre-Dialysis 57 BPM Temperatu re Post-Dialysis 98 degF Standing Heart Rate Pre-Dialysis 58 BPM Temperature Pre-Dialysis 98.2 degF September 24, 2023 In-Center Hemodialysis Treatment 2868-36-57O48:59:00.000Z 8602-95-96O87:00:37.000Z BP Sitting (Pre-Dialysis) 166/80 mmHg BP Sitting (Post-Dialysis) 142/67 mmHg Concurrent Access: falseAV Graft Upper Arm (Left) Arterial BP Standing (Pre-Dialysis) 168/76 mmHg Sitti ng Heart Rate Post-Dialysis 56 BPM Sitting Heart Rate Pre-Dialysis 62 BPM Temperatu re Post-Dialysis 98.5 degF Standing Heart Rate Pre-Dialysis 64 BPM Temperature Pre-Dialysis 98.3 degF September 21, 2023 In-Center Hemodialysis Treatment 0156-47-05M28:55:42.000Z 1322-84-97I35:56:57.000Z BP Sitting (Pre-Dialysis) 198/83 mmHg BP Sitting (Post-Dialysis) 139/80 mmHg Concurrent Access: falseAV Graft Upper Arm (Left) Arterial BP Standing (Pre-Dialysis) 177/88 mmHg Sitti ng Heart Rate Post-Dialysis 58 BPM Sitting Heart Rate Pre-Dialysis 58 BPM Temperatu re Post-Dialysis 98.5 degF Standing Heart Rate Pre-Dialysis 61 BPM Temperature Pre-Dialysis 98.1 degF September 17, 2023 In-Center Hemodialysis Treatment 8077-93-51P69:02:00.000Z 0915-82-79I79:31:59.000Z BP Sitting (Pre-Dialysis) 177/85 mmHg BP Sitting [...] degF September 14, 2023 In-Center Hemodialysis Treatment 2540-00-73C42:59:28.000Z 5356-78-15W63:29:28.000Z BP Sitting (Pre-Dialysis) 162/85 mmHg BP Sitting [...] degF September 12, 2023 In-Center Hemodialysis Treatment 1863-09-26E23:08:48.000Z 9711-98-66F94:38:23.000Z BP Sitting (Pre-Dialysis) 185/71 mmHg BP Sitting (Post-Dialysis) 160/66 mmHg Concurrent Access: falseAV Graft Upper Arm (Left) Arterial BP Standing (Pre-Dialysis) 197/74 mmHg BP Standing (P ost-Dialysis) 157/69 mmHg Sitting Heart Rate Pre-Dialysis 54 BPM Sitting Heart Rate Post-Dialysis 57 BPM Standing Heart Rate Pre-Dialysis 55 BPM Standing Heart Rate Post-Dialysis 60 BPM Temperature Pre-Dialysis 98.2 degF Temperature Post -Dialysis 98.7 degF September 05, 2023 In-Center Hemodialysis Treatment 8799-25-07Y02:02:00.000Z 7461-12-17X55:32:18.000Z BP Sitting (Pre-Dialysis) 164/87 mmHg BP Sitting (Post-Dialysis) 160/78 mmHg Concurrent Access: falseAV Graft Upper Arm (Left) Arterial BP Standing (Pre-Dialysis) 155/83 mmHg Sitting Heart Rate Post-Dialysis 59 BPM Sitting Heart Rate Pre-Dialysis 60 BPM Standing Heart Rate Pre-Dialysis 61 BPM Temperature Pre-Dialysis 98.1 degF September 03, 2023 In-Center Hemodialysis Treatment 9456-55-30A51:02:00.000Z 7158-06-18L91:03:33.000Z BP Sitting (Pre-Dialysis) 166/83 mmHg BP Sitting (Post-Dialysis) 150/69 mmHg Concurrent Access: falseAV Graft Upper Arm (Left) Arterial BP Standing (Pre-Dialysis) 174/89 mmHg Sitti ng Heart Rate Post-Dialysis 60 BPM Sitting Heart Rate Pre-Dialysis 57 BPM Temperatu re Post-Dialysis 98.9 degF Standing Heart Rate Pre-Dialysis 62 BPM Temperature Pre-Dialysis 97.2 degF August 31, 2023 In-Center Hemodialysis Treatment 3797-86-12F99:34:00.000Z 8404-13-99C81:18:02.000Z BP Sitting (Pre-Dialysis) 158/85 mmHg BP Sitting [...] degF August 29, 2023 In-Center Hemodialysis Treatment 5999-52-34U52:00:00.000Z 9717-18-47P74:16:23.000Z BP Sitting (Pre-Dialysis) 171/84 mmHg BP Sitting (Post-Dialysis) 140/69 mmHg Concurrent Access: falseAV Graft Upper Arm (Left) Arterial BP Standing (Pre-Dialysis) 168/79 mmHg Sitting Heart Rate Post-Dialysis 64 BPM Sitting Heart Rate Pre-Dialysis 66 BPM Temperatu re Post-Dialysis 99 degF Standing Heart Rate Pre-Dialysis 66 BPM Temperature Pre-Dialysis 98 degF August 27, 2023 In-Center Hemodialysis Treatment 1051-05-79V30:53:00.000Z 7273-04-09S77:59:50.000Z BP Sitting (Pre-Dialysis) 155/74 mmHg BP Sitting (Post-Dialysis) 144/72 mmHg Concurrent Access: falseAV Graft Upper Arm (Left) Arterial BP Standing (Pre-Dialysis) 157/82 mmHg BP Standing (P ost-Dialysis) 144/87 mmHg Sitting Heart Rate Pre-Dialysis 58 BPM Sitting Heart Rate Post-Dialysis 63 BPM Standing Heart Rate Pre-Dialysis 60 BPM Standing Heart Rate Post-Dialysis 63 BPM Temperature Pre-Dialysis 98.2 degF Temperature Post -Dialysis 98.7 degF August 24, 2023 In-Center Hemodialysis Treatment 9075-94-40H51:01:00.000Z 4702-52-62B70:04:49.000Z BP Sitting (Pre-Dialysis) 140/59 mmHg BP Sitting [...] degF August 22, 2023 In-Center Hemodialysis Treatment 9237-33-87B65:00:00.000Z 4082-65-15D06:43:13.000Z BP Sitting (Pre-Dialysis) 161/94 mmHg BP Sitting (Post-Dialysis) 153/79 mmHg Concurrent Access: falseAV Graft Upper Arm (Left) Arterial BP Standing (Pre-Dialysis) 164/88 mmHg BP Standing (P ost-Dialysis) 171/82 mmHg Sitting Heart Rate Pre-Dialysis 84 BPM Sitting Heart Rate Post-Dialysis 60 BPM Standing Heart Rate Pre-Dialysis 84 BPM Standing Heart Rate Post-Dialysis 63 BPM Temperature Pre-Dialysis 98 degF Temperature Post -Dialysis 97.8 degF August 20, 2023 In-Center Hemodialysis Treatment 6182-93-13D11:08:00.000Z 2858-33-68P88:12:19.000Z BP Sitting (Pre-Dialysis) 174/86 mmHg BP Sitting (Post-Dialysis) 165/70 mmHg Concurrent Access: falseAV Graft Upper Arm (Left) Arterial BP Standing (Pre-Dialysis) 175/89 mmHg Sitti ng Heart Rate Post-Dialysis 57 BPM Sitting Heart Rate Pre-Dialysis 60 BPM Temperatu re Post-Dialysis 98.9 degF Standing Heart Rate Pre-Dialysis 63 BPM Temperature Pre-Dialysis 98.7 degF August 17, 2023 In-Center Hemodialysis Treatment [id number]:02:00.000Z [id number]:32:37.000Z BP Sitting (Pre-Dialysis) 174/75 mmHg BP Sitting [...] degF August 10, 2023 In-Center Hemodialysis Treatment [id number]:56:00.000Z [id number]:02:37.000Z BP Sitting (Pre-Dialysis) 145/71 mmHg BP Sitting [...] degF August 08, 2023 In-Center Hemodialysis Treatment 9802-25-63Y79:05:15.000Z 7917-65-68P09:05:15.000Z BP Sitting (Pre-Dialysis) 167/80 mmHg BP Sitting [...] degF August 04, 2023 In-Center Hemodialysis Treatment 2603-14-16L94:39:22.000Z 9065-95-63C21:38:19.000Z BP Sitting (Pre-Dialysis) 139/67 mmHg BP Sitting (Post-Dialysis) 130/72 mmHg Concurrent Access: falseAV Graft Upper Arm (Left) Arterial BP Standing (Pre-Dialysis) 138/69 mmHg Sitti ng Heart Rate Post-Dialysis 73 BPM Sitting Heart Rate Pre-Dialysis 56 BPM Temperatu re Post-Dialysis 98.1 degF Standing Heart Rate Pre-Dialysis 57 BPM Temperature Pre-Dialysis 98.8 degF August 01, 2023 In-Center Hemodialysis Treatment 0566-33-31E40:03:47.000Z 8667-49-41L81:30:00.000Z BP Sitting (Pre-Dialysis) 152/76 mmHg BP Sitting [...] degF July 30, 2023 In-Center Hemodialysis Treatment 3172-62-77W80:00:00.000Z 7610-24-11M90:47:31.000Z BP Sitting (Pre-Dialysis) 152/74 mmHg BP Sitting [...] degF July 27, 2023 In-Center Hemodialysis Treatment 8985-70-36Y47:07:43.000Z 9749-37-34M92:01:28.000Z BP Sitting (Pre-Dialysis) 143/77 mmHg BP Sitting (Post-Dialysis) 122/63 mmHg Concurrent Access: falseAV Graft Upper Arm (Left) Arterial BP Standing (Pre-Dialysis) 156/81 mmHg BP Standing (P ost-Dialysis) 129/60 mmHg Sitting Heart Rate Pre-Dialysis 66 BPM Sitting Heart Rate Post-Dialysis 59 BPM Standing Heart Rate Pre-Dialysis 68 BPM Standing Heart Rate Post-Dialysis 59 BPM Temperature Pre-Dialysis 98.1 degF Temperature Post -Dialysis 97 degF July 25, 2023 In-Center Hemodialysis Treatment 4531-62-43B59:05:13.000Z 3428-80-76Z07:03:33.000Z BP Sitting (Pre-Dialysis) 158/71 mmHg BP Sitting [...] degF July 23, 2023 In-Center Hemodialysis Treatment 3072-14-39D53:02:28.000Z 0206-20-28L46:32:28.000Z BP Sitting (Pre-Dialysis) 148/77 mmHg BP Sitting [...] degF July 20, 2023 In-Center Hemodialysis Treatment 4720-29-69H81:00:33.000Z 4990-34-76H20:15:58.000Z BP Sitting (Pre-Dialysis) 162/83 mmHg BP Sitting [...] degF July 18, 2023 In-Center Hemodialysis Treatment 4126-16-25E67:10:00.000Z 4224-84-78H64:28:06.000Z BP Sitting (Pre-Dialysis) 149/74 mmHg BP Sitting (Post-Dialysis) 132/67 mmHg Concurrent Access: falseAV Graft Upper Arm (Left) Arterial BP Standing (Pre-Dialysis) 160/69 mmHg Sitti ng Heart Rate Post-Dialysis 57 BPM Sitting Heart Rate Pre-Dialysis 60 BPM Temperatu re Post-Dialysis 99.5 degF Standing Heart Rate Pre-Dialysis 60 BPM Temperature Pre-Dialysis 98.3 degF July 16, 2023 In-Center Hemodialysis Treatment 6598-07-16V47:00:00.000Z 1342-02-05G06:32:43.000Z BP Sitting (Pre-Dialysis) 153/88 mmHg BP Sitting [...] degF July 14, 2023 In-Center Hemodialysis Treatment 3705-89-32A36:10:00.000Z 4537-85-86X13:12:51.000Z BP Sitting (Pre-Dialysis) 162/80 mmHg BP Sitting (Post-Dialysis) 146/61 mmHg Concurrent Access: falseAV Graft Upper Arm (Left) Arterial BP Standing (Pre-Dialysis) 176/77 mmHg BP Standing (P ost-Dialysis) 153/75 mmHg Sitting Heart Rate Pre-Dialysis 59 BPM Sitting Heart Rate Post-Dialysis 56 BPM Standing Heart Rate Pre-Dialysis 59 BPM Standing Heart Rate Post-Dialysis 62 BPM Temperature Pre-Dialysis 97.7 degF Temperature Post -Dialysis 98.6 degF July 11, 2023 In-Center Hemodialysis Treatment 9556-16-01Y36:00:48.000Z 5133-42-85K10:30:23.000Z BP Sitting (Pre-Dialysis) 166/83 mmHg BP Sitting [...] degF July 09, 2023 In-Center Hemodialysis Treatment 1678-99-41Z36:00:53.000Z 9868-56-82U74:02:33.000Z BP Sitting (Pre-Dialysis) 154/77 mmHg BP Sitting (Post-Dialysis) 135/54 mmHg Concurrent Access: falseAV Graft Upper Arm (Left) Arterial BP Standing (Pre-Dialysis) 158/78 mmHg BP Standing (P ost-Dialysis) 128/76 mmHg Sitting Heart Rate Pre-Dialysis 60 BPM Sitting Heart Rate Post-Dialysis 63 BPM Standing Heart Rate Pre-Dialysis 63 BPM Standing Heart Rate Post-Dialysis 63 BPM Temperature Pre-Dialysis 98.6 degF July 06, 2023 In-Center Hemodialysis Treatment 6521-68-38M45:04:14.000Z 6194-74-81G93:35:29.000Z BP Sitting (Pre-Dialysis) 155/95 mmHg BP Sitting [...] degF July 04, 2023 In-Center Hemodialysis Treatment 7022-60-24Y16:03:00.000Z 7457-31-69H03:12:32.000Z BP Sitting (Pre-Dialysis) 159/74 mmHg BP Sitting [...] degF June 28, 2023 In-Center Hemodialysis Treatment 3726-16-36F29:11:00.000Z 9523-00-72M15:13:54.000Z BP Sitting (Pre-Dialysis) 142/71 mmHg BP Sitting [...] degF June 24, 2023 In-Center Hemodialysis Treatment 3618-70-46V95:06:00.000Z 7581-87-46V40:08:26.000Z BP Sitting (Pre-Dialysis) 154/79 mmHg BP Sitting (Post-Dialysis) 132/65 mmHg Concurrent Access: falseAV Graft Upper Arm (Left) Arterial BP Standing (Pre-Dialysis) 158/70 mmHg Sitti ng Heart Rate Post-Dialysis 60 BPM Sitting Heart Rate Pre-Dialysis 60 BPM Temperatu re Post-Dialysis 98.9 degF Standing Heart Rate Pre-Dialysis 61 BPM Temperature Pre-Dialysis 98.3 degF June 22, 2023 In-Center Hemodialysis Treatment 7095-37-94D33:01:08.000Z 6811-19-39U02:04:28.000Z BP Sitting (Pre-Dialysis) 151/73 mmHg BP Sitting (Post-Dialysis) 127/61 mmHg Concurrent Access: falseAV Graft Upper Arm (Left) Arterial BP Standing (Pre-Dialysis) 149/74 mmHg Sitti ng Heart Rate Post-Dialysis 56 BPM Sitting Heart Rate Pre-Dialysis 64 BPM Temperatu re Post-Dialysis 99.7 degF Standing Heart Rate Pre-Dialysis 63 BPM Temperature Pre-Dialysis 98.7 degF June 18, 2023 In-Center Hemodialysis Treatment 2194-58-52V57:00:59.000Z 2760-45-73D16:04:44.000Z BP Sitting (Pre-Dialysis) 155/80 mmHg BP Sitting (Post-Dialysis) 132/79 mmHg Concurrent Access: falseAV Graft Upper Arm (Left) Arterial BP Standing (Pre-Dialysis) 164/84 mmHg Sitti ng Heart Rate Post-Dialysis 61 BPM Sitting Heart Rate Pre-Dialysis 63 BPM Temperatu re Post-Dialysis 97.6 degF Standing Heart Rate Pre-Dialysis 65 BPM Temperature Pre-Dialysis 98 degF June 15, 2023 In-Center Hemodialysis Treatment 3222-29-88O19:55:37.000Z 4480-85-35B44:56:27.000Z BP Sitting (Pre-Dialysis) 126/44 mmHg BP Sitting [...] degF June 14, 2023 In-Center Hemodialysis Treatment 4537-17-38S12:05:00.000Z 6118-92-24W79:17:42.000Z BP Sitting (Pre-Dialysis) 145/73 mmHg BP Sitting (Post-Dialysis) 136/73 mmHg Concurrent Access: falseAV Graft Upper Arm (Left) Arterial BP Standing (Pre-Dialysis) 139/65 mmHg BP Standing (P ost-Dialysis) 144/80 mmHg Sitting Heart Rate Pre-Dialysis 58 BPM Sitting Heart Rate Post-Dialysis 56 BPM Standing Heart Rate Pre-Dialysis 59 BPM Standing Heart Rate Post-Dialysis 59 BPM Temperature Pre-Dialysis 97.5 degF Temperature Post -Dialysis 98.9 degF June 11, 2023 In-Center Hemodialysis Treatment 5627-33-15Z48:08:10.000Z 0900-91-68B91:46:55.000Z BP Sitting (Pre-Dialysis) 164/78 mmHg BP Sitting [...] degF June 08, 2023 In-Center Hemodialysis Treatment 9506-93-78Y80:02:09.000Z 3660-26-04T03:02:09.000Z BP Sitting (Pre-Dialysis) 156/81 mmHg BP Sitting [...] degF June 06, 2023 In-Center Hemodialysis Treatment 3567-81-66A01:02:00.000Z 1014-81-59E54:03:55.000Z BP Sitting (Pre-Dialysis) 149/70 mmHg BP Sitting [...] degF June 04, 2023 In-Center Hemodialysis Treatment 3497-33-00E11:04:01.000Z 0637-61-95U62:35:59.000Z BP Sitting (Pre-Dialysis) 146/76 mmHg BP Sitting (Post-Dialysis) 143/66 mmHg Concurrent Access: falseAV Graft Upper Arm (Left) Arterial BP Standing (Pre-Dialysis) 152/72 mmHg BP Standing (P ost-Dialysis) 149/75 mmHg Sitting Heart Rate Pre-Dialysis 62 BPM Sitting Heart Rate Post-Dialysis 58 BPM Standing Heart Rate Pre-Dialysis 64 BPM Standing Heart Rate Post-Dialysis 62 BPM Temperature Pre-Dialysis 98.5 degF Temperature Post -Dialysis 100.3 degF June 01, 2023 In-Center Hemodialysis Treatment 1499-37-16V16:01:00.000Z 2877-19-19W01:17:19.000Z BP Sitting (Pre-Dialysis) 141/72 mmHg BP Sitting [...] degF May 30, 2023 In-Center Hemodialysis Treatment 6838-89-85D37:02:52.000Z 5681-14-08J25:02:52.000Z BP Sitting (Pre-Dialysis) 136/73 mmHg BP Sitting [...] degF May 28, 2023 In-Center Hemodialysis Treatment 0472-54-23C74:04:49.000Z 8740-41-16I74:18:09.000Z BP Sitting (Pre-Dialysis) 142/67 mmHg BP Sitting [...] degF May 25, 2023 In-Center Hemodialysis Treatment 4961-39-96T15:06:36.000Z 1702-58-80N72:06:36.000Z BP Sitting (Pre-Dialysis) 150/79 mmHg BP Sitting [...] degF May 20, 2023 In-Center Hemodialysis Treatment 7603-25-73D45:18:00.000Z 1680-11-11W03:03:41.000Z BP Sitting (Pre-Dialysis) 127/65 mmHg BP Sitting (Post-Dialysis) 108/61 mmHg Concurrent Access: falseAV Graft Upper Arm (Left) Arterial BP Standing (Pre-Dialysis) 122/60 mmHg BP Standing (P ost-Dialysis) 126/66 mmHg Sitting Heart Rate Pre-Dialysis 60 BPM Sitting Heart Rate Post-Dialysis 62 BPM Standing Heart Rate Pre-Dialysis 61 BPM Standing Heart Rate Post-Dialysis 63 BPM Temperature Pre-Dialysis 98.2 degF May 18, 2023 In-Center Hemodialysis Treatment 8423-11-79S15:04:23.000Z 6576-84-64S29:04:23.000Z BP Sitting (Pre-Dialysis) 155/81 mmHg BP Sitting [...] degF May 16, 2023 In-Center Hemodialysis Treatment 6236-76-97S52:12:38.000Z 0048-93-33Y68:31:23.000Z BP Sitting (Pre-Dialysis) 163/68 mmHg BP Sitting [...] degF May 11, 2023 In-Center Hemodialysis Treatment 5392-56-78G50:03:00.000Z 8984-75-74J37:04:00.000Z BP Sitting (Pre-Dialysis) 137/67 mmHg BP Sitting (Post-Dialysis) 131/65 mmHg Concurrent Access: falseAV Graft Upper Arm (Left) Arterial BP Standing (Pre-Dialysis) 148/69 mmHg Sitti ng Heart Rate Post-Dialysis 59 BPM Sitting Heart Rate Pre-Dialysis 61 BPM Temperatu re Post-Dialysis 98.9 degF Standing Heart Rate Pre-Dialysis 63 BPM Temperature Pre-Dialysis 98.2 degF May 07, 2023 In-Center Hemodialysis Treatment 6229-61-99F01:04:52.000Z 1175-99-45O96:14:51.000Z BP Sitting (Pre-Dialysis) 146/74 mmHg BP Sitting [...] degF May 04, 2023 In-Center Hemodialysis Treatment 5503-93-98D86:59:00.000Z 6577-39-94F11:04:13.000Z BP Sitting (Pre-Dialysis) 117/61 mmHg BP Sitting (Post-Dialysis) 127/60 mmHg Concurrent Access: falseAV Graft Upper Arm (Left) Arterial BP Standing (Pre-Dialysis) 139/70 mmHg BP Standing (P ost-Dialysis) 131/62 mmHg Sitting Heart Rate Pre-Dialysis 60 BPM Sitting Heart Rate Post-Dialysis 61 BPM Standing Heart Rate Pre-Dialysis 65 BPM Standing Heart Rate Post-Dialysis 63 BPM Temperature Pre-Dialysis 98.2 degF Temperature Post -Dialysis 97.6 degF May 02, 2023 In-Center Hemodialysis Treatment 1974-06-61T38:05:00.000Z 7700-18-24Z57:30:03.000Z BP Sitting (Pre-Dialysis) 118/61 mmHg BP Sitting [...] degF April 30, 2023 In-Center Hemodialysis Treatment 3923-30-69E70:59:00.000Z 2237-39-89B12:31:22.000Z BP Sitting (Pre-Dialysis) 141/76 mmHg BP Sitting [...] degF April 27, 2023 In-Center Hemodialysis Treatment 4947-98-89L51:00:00.000Z 6458-38-85V31:02:42.000Z BP Sitting (Pre-Dialysis) 153/75 mmHg BP Sitting (Post-Dialysis) 142/75 mmHg Concurrent Access: falseAV Graft Upper Arm (Left) Arterial BP Standing (Pre-Dialysis) 161/61 mmHg BP Standing (P ost-Dialysis) 137/84 mmHg Sitting Heart Rate Pre-Dialysis 63 BPM Sitting Heart Rate Post-Dialysis 62 BPM Standing Heart Rate Pre-Dialysis 69 BPM Standing Heart Rate Post-Dialysis 63 BPM Temperature Pre-Dialysis 98.1 degF Temperature Post -Dialysis 98.7 degF April 25, 2023 In-Center Hemodialysis Treatment 3182-35-68N45:00:00.000Z 6007-73-00I74:51:55.000Z BP Sitting (Pre-Dialysis) 130/92 mmHg BP Sitting (Post-Dialysis) 127/69 mmHg Concurrent Access: falseAV Graft Upper Arm (Left) Arterial BP Standing (Pre-Dialysis) 154/74 mmHg BP Standing (P ost-Dialysis) 117/73 mmHg Sitting Heart Rate Pre-Dialysis 62 BPM Sitting Heart Rate Post-Dialysis 61 BPM Standing Heart Rate Pre-Dialysis 65 BPM Standing Heart Rate Post-Dialysis 64 BPM Temperature Pre-Dialysis 97.3 degF Temperature Post -Dialysis 98.3 degF April 23, 2023 In-Center Hemodialysis Treatment 1975-28-58R36:00:00.000Z 9946-38-89U72:03:15.000Z BP Sitting (Pre-Dialysis) 142/77 mmHg BP Sitting (Post-Dialysis) 151/72 mmHg Concurrent Access: falseAV Graft Upper Arm (Left) Arterial BP Standing (Pre-Dialysis) 145/69 mmHg BP Standing (P ost-Dialysis) 158/79 mmHg Sitting Heart Rate Pre-Dialysis 61 BPM Sitting Heart Rate Post-Dialysis 61 BPM Standing Heart Rate Pre-Dialysis 63 BPM Standing Heart Rate Post-Dialysis 63 BPM Temperature Pre-Dialysis 98.2 degF Temperature Post -Dialysis 98.5 degF April 20, 2023 In-Center Hemodialysis Treatment 9885-04-15W52:02:20.000Z 2725-14-47S56:15:15.000Z BP Sitting (Pre-Dialysis) 130/70 mmHg BP Sitting (Post-Dialysis) 142/53 mmHg Concurrent Access: falseAV Graft Upper Arm (Left) Arterial BP Standing (Pre-Dialysis) 145/64 mmHg Sitti ng Heart Rate Post-Dialysis 58 BPM Sitting Heart Rate Pre-Dialysis 60 BPM Temperatu re Post-Dialysis 97.6 degF Standing Heart Rate Pre-Dialysis 61 BPM Temperature Pre-Dialysis 98.2 degF April 18, 2023 In-Center Hemodialysis Treatment 7007-45-66X08:02:40.000Z 7474-98-85Y59:08:55.000Z BP Sitting (Pre-Dialysis) 148/73 mmHg BP Sitting [...] degF April 17, 2023 In-Center Hemodialysis Treatment 5497-82-83D27:57:00.000Z 7524-04-78P31:08:00.000Z BP Sitting (Pre-Dialysis) 141/75 mmHg BP Sitting [...] degF April 13, 2023 In-Center Hemodialysis Treatment 8104-46-14A80:58:59.000Z 2971-14-02B01:30:00.000Z BP Sitting (Pre-Dialysis) 116/61 mmHg BP Sitting (Post-Dialysis) 115/57 mmHg Concurrent Access: falseAV Graft Upper Arm (Left) Arterial BP Standing (Pre-Dialysis) 124/62 mmHg BP Standing (P ost-Dialysis) 127/75 mmHg Sitting Heart Rate Pre-Dialysis 61 BPM Sitting Heart Rate Post-Dialysis 60 BPM Standing Heart Rate Pre-Dialysis 63 BPM Standing Heart Rate Post-Dialysis 60 BPM Temperature Pre-Dialysis 98.4 degF Temperature Post -Dialysis 98.1 degF April 11, 2023 In-Center Hemodialysis Treatment 5199-57-69H60:56:00.000Z 4303-24-27H92:29:17.000Z BP Sitting (Pre-Dialysis) 132/66 mmHg BP Sitting [...] degF April 09, 2023 In-Center Hemodialysis Treatment 2443-56-88H26:02:54.000Z 0118-08-58I85:34:09.000Z BP Sitting (Pre-Dialysis) 149/72 mmHg BP Sitting [...] degF April 06, 2023 In-Center Hemodialysis Treatment 3143-68-88U26:03:15.000Z 0440-38-87C16:00:00.000Z BP Sitting (Pre-Dialysis) 135/63 mmHg BP Sitting [...] degF April 04, 2023 In-Center Hemodialysis Treatment 5131-01-76Y21:06:00.000Z 0909-35-57O73:32:53.000Z BP Sitting (Pre-Dialysis) 133/59 mmHg BP Sitting [...] degF April 03, 2023 In-Center Hemodialysis Treatment 7154-14-78J62:10:00.000Z 4963-71-17N74:15:00.000Z BP Sitting (Pre-Dialysis) 140/74 mmHg BP Sitting [...] false March 30, 2023 In-Center Hemodialysis Treatment 0 T0 9: 59 :0 0. 00 0Z 20 0 T1 3: 31 :5 3. 00 0Z [...] degF March 28, 2023 In-Center Hemodialysis Treatment 2860-55-27Q37:00:00.000Z 8047-80-54M19:02:48.000Z BP Sitting (Pre-Dialysis) 133/69 mmHg BP Sitting [...] degF March 26, 2023 In-Center Hemodialysis Treatment 7942-31-68Z38:03:07.000Z 2588-56-21Z38:33:25.000Z BP Sitting (Pre-Dialysis) 122/62 mmHg BP Sitting [...] degF March 23, 2023 In-Center Hemodialysis Treatment 9947-33-68D49:01:00.000Z 1731-20-54K44:34:11.000Z BP Sitting (Pre-Dialysis) 140/80 mmHg BP Sitting [...] degF March 21, 2023 In-Center Hemodialysis Treatment 6109-84-92N61:56:00.000Z 5414-29-44B71:29:09.000Z BP Sitting (Pre-Dialysis) 129/66 mmHg BP Sitting (Post-Dialysis) 114/57 mmHg Concurrent Access: falseAV Graft Upper Arm (Left) Arterial BP Standing (Pre-Dialysis) 127/69 mmHg Sitting Heart Rate Post-Dialysis 60 BPM Sitting Heart Rate Pre-Dialysis 64 BPM Temperatu re Post-Dialysis 98 degF Standing Heart Rate Pre-Dialysis 65 BPM Temperature Pre-Dialysis 98 degF March 19, 2023 In-Center Hemodialysis Treatment 0642-20-72C64:57:00.000Z 5385-84-44L15:16:58.000Z BP Sitting (Pre-Dialysis) 137/69 mmHg BP Sitting [...] degF March 16, 2023 In-Center Hemodialysis Treatment 0856-12-99M12:03:09.000Z 3651-89-60I17:01:29.000Z BP Sitting (Pre-Dialysis) 121/67 mmHg BP Sitting [...] degF March 14, 2023 In-Center Hemodialysis Treatment 3746-47-40A96:58:33.000Z 1571-46-53I86:01:28.000Z BP Sitting (Pre-Dialysis) 145/66 mmHg BP Sitting [...] degF March 12, 2023 In-Center Hemodialysis Treatment 3969-99-43U27:00:37.000Z 8662-33-50S55:18:32.000Z BP Sitting (Pre-Dialysis) 136/64 mmHg BP Sitting [...] degF March 09, 2023 In-Center Hemodialysis Treatment 9640-52-25G00:58:00.000Z 4573-62-88L66:07:04.000Z BP Sitting (Pre-Dialysis) 134/64 mmHg BP Sitting [...] degF March 07, 2023 In-Center Hemodialysis Treatment 3849-40-42B59:07:14.000Z 8553-08-64B97:30:34.000Z BP Sitting (Pre-Dialysis) 123/64 mmHg BP Sitting [...] degF March 05, 2023 In-Center Hemodialysis Treatment 5953-97-44L81:01:00.000Z 4101-61-55W80:03:30.000Z BP Sitting (Pre-Dialysis) 122/59 mmHg BP Sitting [...] degF March 02, 2023 In-Center Hemodialysis Treatment 6606-64-71D24:02:51.000Z 8711-42-70Q33:16:11.000Z BP Sitting (Pre-Dialysis) 136/73 mmHg BP Sitting [...] degF February 28, 2023 In-Center Hemodialysis Treatment 8515-42-86I26:57:00.000Z 7111-07-93S56:46:37.000Z BP Sitting (Pre-Dialysis) 135/69 mmHg BP Sitting (Post-Dialysis) 125/64 mmHg Concurrent Access: falseAV Graft Upper Arm (Left) Arterial BP Standing (Pre-Dialysis) 127/64 mmHg Sitti ng Heart Rate Post-Dialysis 63 BPM Sitting Heart Rate Pre-Dialysis 67 BPM Temperatu re Post-Dialysis 98.7 degF Standing Heart Rate Pre-Dialysis 71 BPM Temperature Pre-Dialysis 98 degF February 26, 2023 In-Center Hemodialysis Treatment 3227-20-09U46:59:35.000Z 6573-38-39S99:42:55.000Z BP Sitting (Pre-Dialysis) 135/67 mmHg BP Sitting [...] degF February 23, 2023 In-Center Hemodialysis Treatment 5637-54-24Y28:00:00.000Z 1144-48-13K40:48:58.000Z BP Sitting (Pre-Dialysis) 160/75 mmHg BP Sitting [...] degF February 21, 2023 In-Center Hemodialysis Treatment 9325-64-96G39:57:00.000Z 0468-09-18N11:01:43.000Z BP Sitting (Pre-Dialysis) 138/66 mmHg BP Sitting [...] degF February 16, 2023 In-Center Hemodialysis Treatment 5287-67-80J17:57:00.000Z 6875-87-85Q97:29:06.000Z BP Sitting (Pre-Dialysis) 112/57 mmHg BP Sitting [...] degF February 14, 2023 In-Center Hemodialysis Treatment 9666-15-36R16:08:00.000Z 7450-56-06R34:31:47.000Z BP Sitting (Pre-Dialysis) 110/56 mmHg BP Sitting [...] degF February 12, 2023 In-Center Hemodialysis Treatment 8680-38-29C16:01:52.000Z 8752-08-05Q18:32:17.000Z BP Sitting (Pre-Dialysis) 111/52 mmHg BP Sitting [...] degF February 09, 2023 In-Center Hemodialysis Treatment 6061-10-65X06:47:59.000Z 6448-51-41N67:50:29.000Z BP Sitting (Pre-Dialysis) 143/69 mmHg BP Sitting [...] degF February 07, 2023 In-Center Hemodialysis Treatment 4097-51-81T48:00:04.000Z 1600-95-19T74:30:04.000Z BP Sitting (Pre-Dialysis) 146/72 mmHg BP Sitting [...] degF February 05, 2023 In-Center Hemodialysis Treatment 6560-72-36O84:00:00.000Z 7556-32-38S86:33:06.000Z BP Sitting (Pre-Dialysis) 122/70 mmHg BP Sitting [...] degF February 02, 2023 In-Center Hemodialysis Treatment 4381-64-28M51:03:41.000Z 1358-06-08E41:48:16.000Z BP Sitting (Pre-Dialysis) 126/72 mmHg BP Sitting [...] degF January 31, 2023 In-Center Hemodialysis Treatment 4614-11-22U84:02:29.000Z 7052-85-43Y68:04:34.000Z BP Sitting (Pre-Dialysis) 152/64 mmHg BP Sitting [...] degF January 29, 2023 In-Center Hemodialysis Treatment 7139-46-14X04:02:57.000Z 6431-89-89D68:46:17.000Z BP Sitting (Pre-Dialysis) 142/73 mmHg BP Sitting [...] degF January 26, 2023 In-Center Hemodialysis Treatment 1474-52-64J96:36:28.000Z 6910-74-40C85:46:03.000Z BP Sitting (Pre-Dialysis) 121/64 mmHg BP Sitting [...] degF January 24, 2023 In-Center Hemodialysis Treatment 5067-65-08G14:08:59.000Z 1109-83-88S73:15:39.000Z BP Sitting (Pre-Dialysis) 133/64 mmHg BP Sitting [...] degF January 20, 2023 In-Center Hemodialysis Treatment 7532-15-86W44:31:36.000Z 2993-61-82Y22:31:36.000Z BP Sitting (Pre-Dialysis) 119/59 mmHg BP Sitting (Post-Dialysis) 116/51 mmHg Concurrent Access: falseAV Graft Upper Arm (Left) Arterial BP Standing (Pre-Dialysis) 121/62 mmHg Sitti ng Heart Rate Post-Dialysis 61 BPM Sitting Heart Rate Pre-Dialysis 64 BPM Temperatu re Post-Dialysis 98.7 degF Standing Heart Rate Pre-Dialysis 63 BPM Temperature Pre-Dialysis 98.8 degF January 17, 2023 In-Center Hemodialysis Treatment 3765-86-64J48:00:45.000Z 3443-85-39Q98:59:05.000Z BP Sitting (Pre-Dialysis) 140/69 mmHg BP Sitting [...] degF January 15, 2023 In-Center Hemodialysis Treatment 3995-71-84R22:01:33.000Z 4283-85-02D81:02:23.000Z BP Sitting (Pre-Dialysis) 120/58 mmHg BP Sitting [...] Post -Dialysis 98.4 degF January 12, 2023 In-Center Hemodialysis Treatment 7014-18-82M96:13:00.000Z 4836-82-58A29:21:27.000Z BP Sitting (Pre-Dialysis) 129/62 mmHg BP Sitting [...] degF January 10, 2023 In-Center Hemodialysis Treatment 3461-78-37V77:50:00.000Z 7847-85-28U91:05:35.000Z BP Sitting (Pre-Dialysis) 101/56 mmHg BP Sitting [...] degF January 08, 2023 In-Center Hemodialysis Treatment 5750-62-64A62:14:00.000Z 0572-83-42H88:30:23.000Z BP Sitting (Pre-Dialysis) 122/64 mmHg BP Sitting [...] degF January 05, 2023 In-Center Hemodialysis Treatment 2154-96-55Z37:10:00.000Z 3958-77-14O60:09:34.000Z BP Sitting (Pre-Dialysis) 137/62 mmHg BP Sitting [...] degF January 03, 2023 In-Center Hemodialysis Treatment 8798-63-25J76:05:00.000Z 3052-27-79V16:51:25.000Z BP Sitting (Pre-Dialysis) 95/50 mmHg BP Sitting (Post-Dialysis) 94/50 mmHg Concurrent Access: falseAV Graft Upper Arm (Left) Arterial BP Standing (Pre-Dialysis) 109/57 mmHg Sitti ng Heart Rate Post-Dialysis 59 BPM Sitting Heart Rate Pre-Dialysis 59 BPM Temperatu re Post-Dialysis 98.1 degF Standing Heart Rate Pre-Dialysis 68 BPM Temperature Pre-Dialysis 97.9 degF January 01, 2023 In-Center Hemodialysis Treatment 4081-23-27A86:10:31.000Z 0370-42-93J70:10:56.000Z BP Sitting (Pre-Dialysis) 115/86 mmHg BP Sitting [...] degF December 29, 2022 In-Center Hemodialysis Treatment 1585-29-93D13:05:02.000Z 3002-21-25Y55:46:17.000Z BP Sitting (Pre-Dialysis) 125/72 mmHg BP Sitting [...] degF December 27, 2022 In-Center Hemodialysis Treatment 9851-89-22W06:02:43.000Z 9566-11-30W84:02:43.000Z BP Sitting (Pre-Dialysis) 108/48 mmHg BP Sitting (Post-Dialysis) 105/44 mmHg Concurrent Access: falseAV Graft Upper Arm (Left) Arterial Sitting Heart Rate Pre-Dialysis 62 BPM BP Standing (Post-Dialysis) 104/56 mmHg Temperature Pre-Dialysis 97.3 degF Sitting Heart Ra te Post-Dialysis 69 BPM Standing Heart Rate Post-Cate lysis 65 BPM Temperature Post-Dialysis 98 degF December 25, 2022 In-Center Hemodialysis Treatment 9449-85-55P22:01:17.000Z 9719-59-47P85:01:25.000Z BP Sitting (Pre-Dialysis) 119/61 mmHg BP Sitting (Post-Dialysis) 120/70 mmHg Concurrent Access: falseAV Graft Upper Arm (Left) Arterial Sitting Heart Rate Pre-Dialysis 61 BPM Sitting H eart Rate Post-Dialysis 61 BPM Temperature Pre-Dialysis 97.3 degF Temperature Post -Dialysis 97.6 degF December 22, 2022 In-Center Hemodialysis Treatment 1187-48-11W90:01:26.000Z 7343-63-58S34:18:31.000Z BP Sitting (Pre-Dialysis) 137/65 mmHg BP Sitting [...] degF December 20, 2022 In-Center Hemodialysis Treatment 0191-25-61H46:01:00.000Z 6010-14-30Y43:02:36.000Z BP Sitting (Pre-Dialysis) 142/73 mmHg BP Sitting (Post-Dialysis) 106/57 mmHg Concurrent Access: falseAV Graft Upper Arm (Left) Arterial BP Standing (Pre-Dialysis) 133/81 mmHg Sitti ng Heart Rate Post-Dialysis 68 BPM Sitting Heart Rate Pre-Dialysis 74 BPM Temperatu re Post-Dialysis 98.2 degF Standing Heart Rate Pre-Dialysis 86 BPM Temperature Pre-Dialysis 98 degF December 18, 2022 In-Center Hemodialysis Treatment 3171-54-92S06:00:42.000Z 9514-75-63U25:00:42.000Z BP Sitting (Pre-Dialysis) 109/53 mmHg BP Sitting [...] degF December 15, 2022 In-Center Hemodialysis Treatment 9758-22-34S97:59:00.000Z 5541-38-21O24:31:39.000Z BP Sitting (Pre-Dialysis) 138/68 mmHg BP Sitting (Post-Dialysis) 104/68 mmHg Concurrent Access: falseAV Graft Upper Arm (Left) Arterial BP Standing (Pre-Dialysis) 115/34 mmHg Sitti ng Heart Rate Post-Dialysis 64 BPM Sitting Heart Rate Pre-Dialysis 60 BPM Temperatu re Post-Dialysis 98.8 degF Standing Heart Rate Pre-Dialysis 67 BPM Temperature Pre-Dialysis 98 degF December 13, 2022 In-Center Hemodialysis Treatment [id number]:02:46.000Z [id number]:04:01.000Z BP Sitting (Pre-Dialysis) 113/57 mmHg BP Sitting [...] degF December 11, 2022 In-Center Hemodialysis Treatment [id number]:00:00.000Z [id number]:32:10.000Z BP Sitting (Pre-Dialysis) 132/42 mmHg BP Sitting (Post-Dialysis) 97/52 mmHg Concurrent Access: falseAV Graft Upper Arm (Left) Arterial BP Standing (Pre-Dialysis) 109/58 mmHg Sitting Heart Rate Post-Dialysis 62 BPM Sitting Heart Rate Pre-Dialysis 58 BPM Temper[place] re Post-Dialysis 98 degF Standing Heart Rate Pre-Dialysis 59 BPM Temperature Pre-Dialysis 98.2 degF December 08, 2022 In-Center Hemodialysis Treatment 8236-39-12G69:59:00.000Z 6137-42-84U14:16:52.000Z BP Sitting (Pre-Dialysis) 140/75 mmHg BP Sitting [...] -Dialysis 98.2 degF 2022 In-Center Hemodialysis Treatment 6775-76-37T79:58:00.000Z 9056-22-84G81:09:39.000Z BP Sitting (Pre-Dialysis) 119/70 mmHg BP Sitting (Post-Dialysis) 109/66 mmHg Concurrent Access: falseAV Graft Upper Arm (Left) Arterial BP Standing (Pre-Dialysis) 96/55 mmHg Sitti ng Heart Rate Post-Dialysis 67 BPM Sitting Heart Rate Pre-Dialysis 68 BPM Temperatu re Post-Dialysis 98.6 degF Standing Heart Rate Pre-Dialysis 63 BPM Temperature Pre-Dialysis 98.2 degF December 04, 2022 In-Center Hemodialysis Treatment 3751-02-80X89:00:57.000Z 8212-91-62T55:32:12.000Z BP Sitting (Pre-Dialysis) 124/73 mmHg BP Sitting [...] degF December 01, 2022 In-Center Hemodialysis Treatment 0193-10-27Y52:02:00.000Z 4154-63-38R17:32:38.000Z BP Sitting (Pre-Dialysis) 137/72 mmHg BP Sitting [...] degF November 29, 2022 In-Center Hemodialysis Treatment 0378-70-37A87:00:48.000Z 7432-76-98B03:30:48.000Z BP Sitting (Pre-Dialysis) 114/65 mmHg BP Sitting [...] degF November 27, 2022 In-Center Hemodialysis Treatment 3392-12-44M51:02:25.000Z 5790-40-45Z09:05:20.000Z BP Sitting (Pre-Dialysis) 104/57 mmHg BP Sitting [...] degF November 24, 2022 In-Center Hemodialysis Treatment 0836-07-01D54:58:00.000Z 3475-70-90M42:21:15.000Z BP Sitting (Pre-Dialysis) 138/75 mmHg BP Sitting [...] degF November 22, 2022 In-Center Hemodialysis Treatment 7321-37-02A75:59:55.000Z 8633-61-64F65:46:10.000Z BP Sitting (Pre-Dialysis) 147/67 mmHg BP Sitting [...] degF November 20, 2022 In-Center Hemodialysis Treatment 1060-65-97C43:59:58.000Z 9171-36-20C52:01:38.000Z BP Sitting (Pre-Dialysis) 110/63 mmHg BP Sitting [...] degF November 17, 2022 In-Center Hemodialysis Treatment 5518-75-51M83:04:01.000Z 7198-55-58A34:32:46.000Z BP Sitting (Pre-Dialysis) 125/67 mmHg BP Sitting [...] degF November 15, 2022 In-Center Hemodialysis Treatment 1523-22-21C39:10:00.000Z 9147-30-90B86:30:00.000Z BP Sitting (Pre-Dialysis) 108/61 mmHg BP Sitting (Post-Dialysis) 106/66 mmHg Concurrent Access: falseAV Graft Upper Arm (Left) Arterial Sitting Heart Rate Pre-Dialysis 57 BPM BP Standing (Post-Dialysis) 102/59 mmHg Temperature Pre-Dialysis 97.9 degF Sitting Heart Ra te Post-Dialysis 61 BPM Standing Heart Rate Post-Cate lysis 70 BPM Temperature Post-Dialysis 98 .5 degF November 13, 2022 In-Center Hemodialysis Treatment 6563-95-80K29:00:00.000Z 3021-27-36Q04:05:59.000Z BP Sitting (Pre-Dialysis) 107/57 mmHg BP Sitting [...] degF November 10, 2022 In-Center Hemodialysis Treatment 0374-64-68U21:03:34.000Z 6380-29-92B32:04:24.000Z BP Sitting (Pre-Dialysis) 122/62 mmHg BP Sitting [...] degF November 08, 2022 In-Center Hemodialysis Treatment 4000-27-27Z24:02:37.000Z 7611-09-74U89:03:27.000Z BP Sitting (Pre-Dialysis) 127/64 mmHg BP Sitting [...] degF November 06, 2022 In-Center Hemodialysis Treatment 3809-59-18J11:01:50.000Z 9038-87-94M34:47:15.000Z BP Sitting (Pre-Dialysis) 109/63 mmHg BP Sitting [...] degF November 03, 2022 In-Center Hemodialysis Treatment 4861-05-47G80:00:00.000Z 7342-28-38H68:01:38.000Z BP Sitting (Pre-Dialysis) 127/65 mmHg BP Sitting [...] degF November 01, 2022 In-Center Hemodialysis Treatment 1657-51-90A43:11:00.000Z 6645-11-29N30:12:56.000Z BP Sitting (Pre-Dialysis) 114/83 mmHg BP Sitting (Post-Dialysis) 125/62 mmHg Concurrent Access: falseAV Graft Upper Arm (Left) Arterial BP Standing (Pre-Dialysis) 121/56 mmHg Sitti ng Heart Rate Post-Dialysis 66 BPM Sitting Heart Rate Pre-Dialysis 86 BPM Temperatu re Post-Dialysis 98.3 degF Standing Heart Rate Pre-Dialysis 85 BPM Temperature Pre-Dialysis 97.8 degF October 30, 2022 In-Center Hemodialysis Treatment 1708-36-13G05:16:48.000Z 7670-41-23C40:32:38.000Z BP Sitting (Pre-Dialysis) 122/64 mmHg BP Sitting [...] degF October 27, 2022 In-Center Hemodialysis Treatment 3832-20-39V29:28:00.000Z 3209-92-65K56:31:07.000Z BP Sitting (Pre-Dialysis) 125/62 mmHg BP Sitting [...] degF October 25, 2022 In-Center Hemodialysis Treatment 0312-59-00F94:16:00.000Z 1799-43-42M34:32:27.000Z BP Sitting (Pre-Dialysis) 131/67 mmHg BP Sitting [...] degF October 23, 2022 In-Center Hemodialysis Treatment 1916-77-60E52:22:49.000Z 3281-29-70Q70:23:39.000Z BP Sitting (Pre-Dialysis) 125/71 mmHg BP Sitting [...] degF October 20, 2022 In-Center Hemodialysis Treatment 4452-71-95S21:02:58.000Z 3038-45-31Z26:31:43.000Z BP Sitting (Pre-Dialysis) 109/59 mmHg BP Sitting (Post-Dialysis) 101/75 mmHg Concurrent Access: falseAV Graft Upper Arm (Left) Arterial BP Standing (Pre-Dialysis) 116/63 mmHg Sitti ng Heart Rate Post-Dialysis 64 BPM Sitting Heart Rate Pre-Dialysis 64 BPM Temperatu re Post-Dialysis 98.2 degF Standing Heart Rate Pre-Dialysis 79 BPM Temperature Pre-Dialysis 98 degF October 18, 2022 In-Center Hemodialysis Treatment 6878-67-65O59:22:57.000Z 4137-59-77F49:22:57.000Z BP Sitting (Pre-Dialysis) 117/73 mmHg BP Sitting [...] degF October 16, 2022 In-Center Hemodialysis Treatment 3809-13-36E89:05:00.000Z 1030-17-32U52:21:11.000Z BP Sitting (Pre-Dialysis) 124/66 mmHg BP Sitting (Post-Dialysis) 112/58 mmHg Concurrent Access: falseAV Graft Upper Arm (Left) Arterial BP Standing (Pre-Dialysis) 127/68 mmHg Sitti ng Heart Rate Post-Dialysis 61 BPM Sitting Heart Rate Pre-Dialysis 58 BPM Temperatu re Post-Dialysis 97.9 degF Standing Heart Rate Pre-Dialysis 61 BPM Temperature Pre-Dialysis 98 degF October 13, 2022 In-Center Hemodialysis Treatment 6971-50-13F88:04:00.000Z 7870-01-71S46:00:00.000Z BP Sitting (Pre-Dialysis) 97/55 mmHg BP Sitting [...] degF October 11, 2022 In-Center Hemodialysis Treatment 9990-94-84R82:09:28.000Z 0655-83-33K90:10:18.000Z BP Sitting (Pre-Dialysis) 127/59 mmHg BP Sitting [...] degF October 09, 2022 In-Center Hemodialysis Treatment 1068-28-04W94:21:00.000Z 8391-31-14C72:15:32.000Z BP Sitting (Pre-Dialysis) 99/52 mmHg BP Sitting [...] degF October 06, 2022 In-Center Hemodialysis Treatment 6318-89-81T03:04:03.000Z 8028-02-40Y25:46:33.000Z BP Sitting (Pre-Dialysis) 124/64 mmHg BP Sitting [...] degF October 04, 2022 In-Center Hemodialysis Treatment 5282-76-27M36:06:42.000Z 6195-78-49M66:06:42.000Z BP Sitting (Pre-Dialysis) 107/54 mmHg BP Sitting [...] degF October 02, 2022 In-Center Hemodialysis Treatment 8155-30-70B06:07:32.000Z 0064-32-50Q36:07:07.000Z BP Sitting (Pre-Dialysis) 96/53 mmHg BP Sitting [...] degF September 29, 2022 In-Center Hemodialysis Treatment 0478-90-15H96:06:00.000Z 7029-87-14X20:06:00.000Z BP Sitting (Pre-Dialysis) 126/62 mmHg BP Sitting [...] degF September 27, 2022 In-Center Hemodialysis Treatment 3388-62-79S21:11:07.000Z 8777-95-78A86:10:42.000Z BP Sitting (Pre-Dialysis) 102/57 mmHg BP Sitting (Post-Dialysis) 101/47 mmHg Concurrent Access: falseAV Graft Upper Arm (Left) Arterial BP Standing (Pre-Dialysis) 88/51 mmHg Sitti ng Heart Rate Post-Dialysis 71 BPM Sitting Heart Rate Pre-Dialysis 65 BPM Temperatu re Post-Dialysis 97.5 degF Standing Heart Rate Pre-Dialysis 67 BPM Temperature Pre-Dialysis 97 degF September 25, 2022 In-Center Hemodialysis Treatment 6059-51-31A58:49:00.000Z 5540-14-11Z26:33:22.000Z BP Sitting (Pre-Dialysis) 117/63 mmHg BP Sitting [...] degF September 22, 2022 In-Center Hemodialysis Treatment 1969-88-81A05:05:00.000Z 0378-37-35Z05:12:35.000Z BP Sitting (Pre-Dialysis) 125/61 mmHg BP Sitting [...] degF September 20, 2022 In-Center Hemodialysis Treatment 2110-76-33I86:30:00.000Z 7535-53-34L19:30:13.000Z BP Sitting (Pre-Dialysis) 130/74 mmHg BP Sitting (Post-Dialysis) 105/48 mmHg Concurrent Access: falseAV Graft Upper Arm (Left) Arterial BP Standing (Pre-Dialysis) 119/56 mmHg BP Standing (P ost-Dialysis) 121/54 mmHg Sitting Heart Rate Pre-Dialysis 66 BPM Sitting Heart Rate Post-Dialysis 72 BPM Standing Heart Rate Pre-Dialysis 70 BPM Standing Heart Rate Post-Dialysis 70 BPM Temperature Pre-Dialysis 97.2 degF September 18, 2022 In-Center Hemodialysis Treatment 3428-51-63K09:04:00.000Z 8492-10-99H09:04:00.000Z BP Sitting (Pre-Dialysis) 117/61 mmHg BP Sitting [...] degF September 15, 2022 In-Center Hemodialysis Treatment 2559-83-64J84:45:00.000Z 3533-61-02Y19:45:00.000Z BP Sitting (Pre-Dialysis) 131/70 mmHg BP Sitting [...] degF September 13, 2022 In-Center Hemodialysis Treatment 0499-29-99Y15:15:00.000Z 9042-70-92Q54:14:00.000Z BP Sitting (Pre-Dialysis) 119/64 mmHg BP Sitting (Post-Dialysis) 110/72 mmHg Concurrent Access: falseAV Graft Upper Arm (Left) Arterial BP Standing (Pre-Dialysis) 118/68 mmHg Sitti ng Heart Rate Post-Dialysis 68 BPM Sitting Heart Rate Pre-Dialysis 64 BPM Temperatu re Post-Dialysis 98.2 degF Standing Heart Rate Pre-Dialysis 66 BPM Temperature Pre-Dialysis 97.5 degF September 11, 2022 In-Center Hemodialysis Treatment 0414-71-12X66:46:00.000Z 7633-75-02D99:29:00.000Z BP Sitting (Pre-Dialysis) 144/71 mmHg BP Sitting (Post-Dialysis) 100/70 mmHg Concurrent Access: falseAV Graft Upper Arm (Left) Arterial BP Standing (Pre-Dialysis) 138/68 mmHg Sitti ng Heart Rate Post-Dialysis 72 BPM Sitting Heart Rate Pre-Dialysis 69 BPM Temperatu re Post-Dialysis 98.1 degF Standing Heart Rate Pre-Dialysis 73 BPM Temperature Pre-Dialysis 98 degF September 08, 2022 In-Center Hemodialysis Treatment 4402-38-25H88:17:00.000Z 7304-59-12G07:17:25.000Z BP Sitting (Pre-Dialysis) 134/82 mmHg BP Sitting [...] degF September 06, 2022 In-Center Hemodialysis Treatment 5403-66-42M73:19:12.000Z 6700-42-32T37:20:02.000Z BP Sitting (Pre-Dialysis) 130/73 mmHg BP Sitting [...] degF September 04, 2022 In-Center Hemodialysis Treatment 9177-58-56D33:10:00.000Z 0402-82-68I92:11:43.000Z BP Sitting (Pre-Dialysis) 115/57 mmHg BP Sitting [...] degF September 01, 2022 In-Center Hemodialysis Treatment 4245-17-65W95:10:28.000Z 4902-82-56P82:30:28.000Z BP Sitting (Pre-Dialysis) 127/64 mmHg BP Sitting [...] degF August 30, 2022 In-Center Hemodialysis Treatment 4380-12-84L79:12:18.000Z 0849-20-13M77:07:18.000Z BP Sitting (Pre-Dialysis) 133/70 mmHg BP Sitting [...] degF August 28, 2022 In-Center Hemodialysis Treatment 2933-59-77B51:14:54.000Z 3753-15-13X14:15:19.000Z BP Sitting (Pre-Dialysis) 125/61 mmHg BP Sitting [...] degF August 25, 2022 In-Center Hemodialysis Treatment 7992-36-62G74:30:37.000Z 1432-31-06P31:35:12.000Z BP Sitting (Pre-Dialysis) 120/66 mmHg BP Sitting [...] degF August 23, 2022 In-Center Hemodialysis Treatment 9676-84-63C00:18:00.000Z 1050-92-36M23:16:02.000Z BP Sitting (Pre-Dialysis) 133/68 mmHg BP Sitting (Post-Dialysis) 130/73 mmHg Concurrent Access: falseAV Graft Upper Arm (Left) Arterial BP Standing (Pre-Dialysis) 123/61 mmHg Sitti ng Heart Rate Post-Dialysis 73 BPM Sitting Heart Rate Pre-Dialysis 65 BPM Temperatu re Post-Dialysis 97.7 degF Standing Heart Rate Pre-Dialysis 66 BPM Temperature Pre-Dialysis 98.4 degF August 21, 2022 In-Center Hemodialysis Treatment 1593-14-36K68:13:17.000Z 1683-90-07I29:13:17.000Z BP Sitting (Pre-Dialysis) 112/86 mmHg BP Sitting [...] degF August 18, 2022 In-Center Hemodialysis Treatment 7059-47-90M21:13:37.000Z 6869-32-06C29:33:12.000Z BP Sitting (Pre-Dialysis) 127/67 mmHg BP Sitting (Post-Dialysis) 128/55 mmHg Concurrent Access: falseAV Graft Upper Arm (Left) Arterial Sitting Heart Rate Pre-Dialysis 63 BPM BP Standing (Post-Dialysis) 111/64 mmHg Temperature Pre-Dialysis 97.8 degF Sitting Heart Ra te Post-Dialysis 61 BPM Standing Heart Rate Post-Cate lysis 70 BPM Temperature Post-Dialysis 97 degF August 16, 2022 In-Center Hemodialysis Treatment 8080-11-63Z75:13:00.000Z 2911-52-61X03:14:03.000Z BP Sitting (Pre-Dialysis) 122/63 mmHg BP Sitting (Post-Dialysis) 104/61 mmHg Concurrent Access: falseAV Graft Upper Arm (Left) Arterial BP Standing (Pre-Dialysis) 121/64 mmHg BP Standing (P ost-Dialysis) 100/56 mmHg Sitting Heart Rate Pre-Dialysis 63 BPM Sitting Heart Rate Post-Dialysis 63 BPM Standing Heart Rate Pre-Dialysis 62 BPM Standing Heart Rate Post-Dialysis 65 BPM Temperature Pre-Dialysis 97.2 degF Temperature Post -Dialysis 97.2 degF August 14, 2022 In-Center Hemodialysis Treatment 3263-41-38P47:08:00.000Z 2508-45-61X61:10:43.000Z BP Sitting (Pre-Dialysis) 124/59 mmHg BP Sitting [...] degF August 11, 2022 In-Center Hemodialysis Treatment 6199-06-98K19:28:25.000Z 4332-40-31Q22:28:00.000Z BP Sitting (Pre-Dialysis) 136/73 mmHg BP Sitting [...] degF August 09, 2022 In-Center Hemodialysis Treatment 4499-61-46A94:12:00.000Z 7369-86-32D97:31:13.000Z BP Sitting (Pre-Dialysis) 126/67 mmHg BP Sitting [...] degF August 07, 2022 In-Center Hemodialysis Treatment 0959-44-68F00:06:27.000Z 7750-23-58M05:37:17.000Z BP Sitting (Pre-Dialysis) 136/69 mmHg BP Sitting [...] degF August 04, 2022 In-Center Hemodialysis Treatment 4094-49-91X94:16:00.000Z 8445-28-59R42:52:50.000Z BP Sitting (Pre-Dialysis) 118/63 mmHg BP Sitting [...] degF August 02, 2022 In-Center Hemodialysis Treatment 3362-72-20I46:05:28.000Z 7214-28-96T72:31:43.000Z BP Sitting (Pre-Dialysis) 123/64 mmHg BP Sitting [...] degF July 31, 2022 In-Center Hemodialysis Treatment 6571-43-02D25:07:00.000Z 3328-95-77V24:07:59.000Z BP Sitting (Pre-Dialysis) 131/61 mmHg BP Sitting (Post-Dialysis) 105/52 mmHg Concurrent Access: falseAV Graft Upper Arm (Left) Arterial BP Standing (Pre-Dialysis) 115/73 mmHg Sitti ng Heart Rate Post-Dialysis 67 BPM Sitting Heart Rate Pre-Dialysis 63 BPM Temperatu re Post-Dialysis 98.8 degF Standing Heart Rate Pre-Dialysis 65 BPM Temperature Pre-Dialysis 98.3 degF July 28, 2022 In-Center Hemodialysis Treatment 9921-56-70P58:07:00.000Z 6311-52-51W10:09:05.000Z BP Sitting (Pre-Dialysis) 130/37 mmHg BP Sitting [...] degF July 26, 2022 In-Center Hemodialysis Treatment 9057-81-64F53:15:00.000Z 4362-13-68I46:16:17.000Z BP Sitting (Pre-Dialysis) 127/67 mmHg BP Sitting [...] degF July 24, 2022 In-Center Hemodialysis Treatment 8710-65-88A73:02:00.000Z 3391-53-59Q06:04:56.000Z BP Sitting (Pre-Dialysis) 139/71 mmHg BP Sitting [...] degF July 21, 2022 In-Center Hemodialysis Treatment 5224-15-41M32:13:00.000Z 1254-53-70O68:13:12.000Z BP Sitting (Pre-Dialysis) 138/68 mmHg BP Sitting (Post-Dialysis) 133/68 mmHg Concurrent Access: falseAV Graft Upper Arm (Left) Arterial BP Standing (Pre-Dialysis) 133/69 mmHg BP Standing (P ost-Dialysis) 127/72 mmHg Sitting Heart Rate Pre-Dialysis 60 BPM Sitting Heart Rate Post-Dialysis 64 BPM Standing Heart Rate Pre-Dialysis 62 BPM Standing Heart Rate Post-Dialysis 68 BPM Temperature Pre-Dialysis 98 degF July 19, 2022 In-Center Hemodialysis Treatment 7129-19-68E52:18:00.000Z 9779-60-06E30:19:05.000Z BP Sitting (Pre-Dialysis) 130/75 mmHg BP Sitting [...] degF July 17, 2022 In-Center Hemodialysis Treatment 2173-18-05O24:02:00.000Z 8616-69-69B79:05:37.000Z BP Sitting (Pre-Dialysis) 130/61 mmHg BP Sitting [...] degF July 15, 2022 In-Center Hemodialysis Treatment 1394-84-64N40:01:00.000Z 3721-58-32F16:04:48.000Z BP Sitting (Pre-Dialysis) 133/79 mmHg BP Sitting [...] degF July 10, 2022 In-Center Hemodialysis Treatment 2418-94-44X82:07:00.000Z 5331-55-87M88:10:14.000Z BP Sitting (Pre-Dialysis) 145/69 mmHg BP Sitting [...] degF July 08, 2022 In-Center Hemodialysis Treatment 4065-73-02K88:57:00.000Z 4514-78-66Q02:00:11.000Z BP Sitting (Pre-Dialysis) 140/66 mmHg BP Sitting [...] degF July 05, 2022 In-Center Hemodialysis Treatment 2156-94-97O05:21:00.000Z 3608-74-54C61:26:07.000Z BP Sitting (Pre-Dialysis) 135/71 mmHg BP Sitting [...] degF July 03, 2022 In-Center Hemodialysis Treatment 7188-44-15B43:10:00.000Z 3549-58-95N64:11:16.000Z BP Sitting (Pre-Dialysis) 138/60 mmHg BP Sitting [...] degF June 30, 2022 In-Center Hemodialysis Treatment 7327-76-55Q57:05:00.000Z 8053-03-41U14:08:06.000Z BP Sitting (Pre-Dialysis) 144/69 mmHg BP Sitting [...] degF June 28, 2022 In-Center Hemodialysis Treatment 2389-44-80X54:17:56.000Z 7470-81-33L07:34:11.000Z BP Sitting (Pre-Dialysis) 130/69 mmHg BP Sitting (Post-Dialysis) 126/81 mmHg Concurrent Access: falseAV Graft Upper Arm (Left) Arterial BP Standing (Pre-Dialysis) 129/64 mmHg BP Standing (P ost-Dialysis) 114/64 mmHg Sitting Heart Rate Pre-Dialysis 76 BPM Sitting Heart Rate Post-Dialysis 69 BPM Standing Heart Rate Pre-Dialysis 63 BPM Standing Heart Rate Post-Dialysis 74 BPM Temperature Pre-Dialysis 97.6 degF Temperature Post -Dialysis 98.2 degF June 26, 2022 In-Center Hemodialysis Treatment 7739-60-71K87:12:00.000Z 4790-41-97U57:13:16.000Z BP Sitting (Pre-Dialysis) 144/75 mmHg BP Sitting [...] degF June 23, 2022 In-Center Hemodialysis Treatment 3488-64-04Z30:08:00.000Z 2473-50-87G92:09:44.000Z BP Sitting (Pre-Dialysis) 149/78 mmHg BP Sitting [...] degF June 21, 2022 In-Center Hemodialysis Treatment 9834-32-90N51:23:29.000Z 3208-13-33X71:48:54.000Z BP Sitting (Pre-Dialysis) 149/73 mmHg BP Sitting [...] degF June 19, 2022 In-Center Hemodialysis Treatment 4376-75-82L54:16:00.000Z 8615-24-23H98:26:41.000Z BP Sitting (Pre-Dialysis) 137/73 mmHg BP Sitting [...] degF June 16, 2022 In-Center Hemodialysis Treatment 1258-52-58V72:27:00.000Z 3803-58-10H70:43:59.000Z BP Sitting (Pre-Dialysis) 143/75 mmHg BP Sitting [...] degF June 14, 2022 In-Center Hemodialysis Treatment 6331-95-12O96:04:00.000Z 1996-03-65B50:05:13.000Z BP Sitting (Pre-Dialysis) 146/73 mmHg BP Sitting [...] degF June 12, 2022 In-Center Hemodialysis Treatment 7817-17-39D33:32:40.000Z 9369-00-63U52:41:01.000Z BP Sitting (Pre-Dialysis) 124/71 mmHg BP Sitting [...] Order Order Date/Time Observations In-Center Hemodialysis Treatment [facility] 2024 Target Weight 72 kg Dialysate Flow Rate 500 mL/min Blood Flow Rate 400 mL/min Treatment Time 240 min(total) Max UF Rate 13 mL/kg/hr dialysate_temp 37 C BiCarb Dialysate BiCarbonate 37 mEq/L Access Concurrent No Arterial Access AV Graft (Upper Arm (Left)) Venous Access AV Graft (Upper Arm (Left)) Arterial Needle Display SOPHIE PERALTA, 15 G x 1, SHARP , TWIN Venous Needle SOPHIE PERALTA, 15G x 1, SHARP , TWIN Dialyzer Nipro Elisio 15H 126 4 [email or web address] Dialysate Bath Potassium Potassium 3 mEq /L Dialysate Bath Calcium Calcium 2.5 mEq/L Results Adequacy Description Draw Date Result/Unit Status Ref Range Result Comments URR% 2025-06-05 01:24:24 75 % F DIALYZER FLOW-QD 2025-06-05 01:24:24 500 mL/min F Dialyzer RUBY 2025-06-05 01:24:24 1264 Calc F LENGTH OF DIALYSIS 2025-06-05 01:24:24 241 min F PATIENT AGE 2025-06-05 01:24:24 59 Years F BSA DIYA 2025-06-05 01:24:24 1.89 sq m F WEIGHT - POST DAY 1 2025-06-05 01:24:24 72 kg F HEIGHT IN INCHES 2025-06-05 01:24:24 70 Inches F WEIGHT - PRE DAY 1 2025-06-05 01:24:24 73.7 kg F WEIGHT (KG) 2025-06-05 01:24:24 72 kg F PRESCRIBED DAYS/WEEK 2025-06-05 01:24:24 3 Day/Wk F VT (KT/V TX VOL) 2025-06-05 01:24:24 41.5 L F Residual kt/v 2025-06-05 01:24:24 F VM (KT/V MEAN VOL) 2025-06-05 01:24:24 41.5 F Total Kt/V 2025-06-05 01:24:24 1.53 F KT/V PRESCRIBED 2025-06-05 01:24:24 1.95 F nPCR 2025-06-05 01:24:24 0.54 G/KG/D F AMPUTATE FACTOR 2025-06-05 01:24:24 0 F TBW ([place]) 2025-06-05 01:24:24 40.13 Liters F spKt/V 2025-06-05 01:24:24 1.53 F eKt/V 2025-06-05 01:24:24 1.32 F stdKt/V (DIAL) 2025-06-05 01:24:24 N/A F Std Renal KT/V 2025-06-05 01:24:24 N/A F stdKT/V Total 2025-06-05 01:24:24 N/A F TOTAL HOURS/WEEK DIALYSIS 2025-06-05 01:24:24 7 hrs F BLOOD FLOW-QWB 2025-06-05 01:24:24 375 F CURRENT KRU 2025-06-05 01:24:24 F Urea nitrogen [Mass/volume] in Serum or Plasma 2025-06-05 01:22:22 48 mg/dL F 9.0-23.0 Urea nitrogen [Mass/volume] in Serum or Plasma --post dialysis 2025-06-05 01:05:21 12 mg/dL F 9.0-23.0 URR% 2025-05-09 20:39:55 77 % F DIALYZER FLOW-QD 2025-05-09 20:39:55 500 mL/min F Dialyzer RUBY 2025-05-09 20:39:55 1264 Calc F LENGTH OF DIALYSIS 2025-05-09 20:39:55 240 min F WEIGHT - POST DAY 1 2025-05-09 20:39:55 71.3 kg F PATIENT AGE 2025-05-09 20:39:55 59 Years F BSA DIYA 2025-05-09 20:39:55 1.91 sq m F WEIGHT - PRE DAY 1 2025-05-09 20:39:55 71.5 kg F HEIGHT IN INCHES 2025-05-09 20:39:55 70 Inches F WEIGHT (KG) 2025-05-09 20:39:55 73.5 kg F PRESCRIBED DAYS/WEEK 2025-05-09 20:39:55 3 Day/Wk F VT (KT/V TX VOL) 2025-05-09 20:39:55 37.7 L F VM (KT/V MEAN VOL) 2025-05-09 20:39:55 41.5 F Residual kt/v 2025-05-09 20:39:55 F Total Kt/V 2025-05-09 20:39:55 1.69 F KT/V PRESCRIBED 2025-05-09 20:39:55 1.92 F nPCR 2025-05-09 20:39:55 0.79 G/KG/D F AMPUTATE FACTOR 2025-05-09 20:39:55 0 F TBW ([place]) 2025-05-09 20:39:55 39.9 Liters F spKt/V 2025-05-09 20:39:55 1.69 F eKt/V 2025-05-09 20:39:55 1.45 F stdKt/V (DIAL) 2025-05-09 20:39:55 N/A F Std Renal KT/V 2025-05-09 20:39:55 N/A F stdKT/V Total 2025-05-09 20:39:55 N/A F TOTAL HOURS/WEEK DIALYSIS 2025-05-09 20:39:55 8 hrs F BLOOD FLOW-QWB 2025-05-09 20:39:55 390 F CURRENT KRU 2025-05-09 20:39:55 F Urea nitrogen [Mass/volume] in Serum or Plasma 2025-05-09 20:38:13 31 mg/dL F 9.0-23.0 Urea nitrogen [Mass/volume] in Serum or Plasma --post dialysis 2025-05-09 18:39:19 7 mg/dL F 9.0-23.0 Creatinine [Mass/volume] in Serum or Plasma 2025-04-24 15:06:20 8.86 mg/dL F 0.7-1.3 DIALYZER FLOW-QD 2025-04-11 15:13:12 500 mL/min F URR% 2025-04-11 15:13:12 73 % F Dialyzer RUBY 2025-04-11 15:13:12 1264 Calc F LENGTH OF DIALYSIS 2025-04-11 15:13:12 240 min F PATIENT AGE 2025-04-11 15:13:12 59 Years F BSA DIYA 2025-04-11 15:13:12 1.93 sq m F WEIGHT - POST DAY 1 2025-04-11 15:13:12 75.2 kg F WEIGHT - PRE DAY 1 2025-04-11 15:13:12 77.3 kg F HEIGHT IN INCHES 2025-04-11 15:13:12 70 Inches F PRESCRIBED DAYS/WEEK 2025-04-11 15:13:12 3 Day/Wk F WEIGHT (KG) 2025-04-11 15:13:12 75.5 kg F VT (KT/V TX VOL) 2025-04-11 15:13:12 40.5 L F VM (KT/V MEAN VOL) 2025-04-11 15:13:12 42.7 F Residual kt/v 2025-04-11 15:13:12 F KT/V PRESCRIBED 2025-04-11 15:13:12 1.88 F Total Kt/V 2025-04-11 15:13:12 1.6 F nPCR 2025-04-11 15:13:12 1.73 G/KG/D F AMPUTATE FACTOR 2025-04-11 15:13:12 0 F TBW ([place]) 2025-04-11 15:13:12 41.21 Liters F spKt/V 2025-04-11 15:13:12 1.6 F eKt/V 2025-04-11 15:13:12 1.38 F stdKt/V (DIAL) 2025-04-11 15:13:12 N/A F Std Renal KT/V 2025-04-11 15:13:12 N/A F stdKT/V Total 2025-04-11 15:13:12 N/A F TOTAL HOURS/WEEK DIALYSIS 2025-04-11 15:13:12 12 hrs F BLOOD FLOW-QWB 2025-04-11 15:13:12 399 F CURRENT KRU 2025-04-11 15:13:12 F Urea nitrogen [Mass/volume] in Serum or Plasma 2025-04-11 15:11:18 67 mg/dL F 9.0-23.0 Urea nitrogen [Mass/volume] in Serum or Plasma --post dialysis 2025-04-11 14:50:17 18 mg/dL F 9.0-23.0 Anemia Description Draw Date Result/Unit Status Ref Range Result Comments HCT CALC HGBX3 2025-06-05 02:17:08 26.7 % F 42.0-52.0 Hemoglobin [Mass/volume] in Blood 2025-06-05 02:16:16 8.9 g/dL F 14.0-18.0 HCT CALC HGBX3 2025-05-09 18:59:52 26.1 % F 42.0-52.0 Hemoglobin [Mass/volume] in Blood 2025-05-09 18:59:12 8.7 g/dL F 14.0-18.0 ABSOLUTE RETIC COUNT 2025-04-30 13:52:10 0.032 x 10^6 cells/uL F 0.035-0.127 Reticulocytes/100 erythrocytes in Blood by Automated count 2025-04-30 13:52:10 1.18 % F 0.7-2.5 IRON SATURATION 2025-04-25 03:11:43 89 % F 21.0-49.0 TIBC 2025-04-25 03:11:43 204 ug/dL F 250.0-425.0 Iron binding capacity.unsaturated [Mass/volume] in Serum or Plasma 2025-04-25 03:09:17 23 ug/dL F 75.0-360.0 HCT CALC HGBX3 2025-04-25 00:08:51 28.8 % F 42.0-52.0 Erythrocyte distribution width [Ratio] by Automated count 2025-04-25 00:08:08 15.5 % F 11.0-15.0 Erythrocytes [#/volume] in Blood by Automated count 2025-04-25 00:08:08 2.83 x 10^6 cells/uL F 4.6-6.2 Hematocrit [Volume Fraction] of Blood by Automated count 2025-04-25 00:08:08 28.1 % F 41.0-53.0 Hemoglobin [Mass/volume] in Blood 2025-04-25 00:08:08 9.6 g/dL F 14.0-18.0 MCH [Entitic mass] by Automated count 2025-04-25 00:08:08 33.8 pg F 25.9-34.2 MCHC [Mass/volume] by Automated count 2025-04-25 00:08:08 34.1 g/dL F 29.6-35.3 MCV [Entitic volume] by Automated count 2025-04-25 00:08:08 99.1 fL F 80.0-100.0 Platelets [#/volume] in Blood by Automated count 2025-04-25 00:08:08 26 x 10^3 cells/uL F 140.0-450.0 Iron [Mass/volume] in Serum or Plasma 2025-04-24 18:37:04 181 ug/dL F 65.0-175.0 Ferritin [Mass/volume] in Serum or Plasma 2025-04-24 15:09:16 409 ng/mL F 11.0-307.0 HCT CALC HGBX3 2025-04-11 15:14:22 32.7 % F 42.0-52.0 Hemoglobin [Mass/volume] in Blood 2025-04-11 15:13:12 10.9 g/dL F 14.0-18.0 FluidBP Description Draw Date Result/Unit Status Ref Range Result Comments Sodium [Moles/volume] in Serum or Plasma 2025-04-24 18:37:04 141 mEq/L F 136.0-145.0 General Description Draw Date Result/Unit Status Ref Range Result Comments Aluminum [Mass/volume] in Serum or Plasma 2025-06-03 21:25:24 10 ug/L F 0.0-9.0 Chloride [Moles/volume] in Serum or Plasma 2025-04-24 18:37:04 99 mEq/L F 98.0-107.0 Alanine aminotransferase [Enzymatic activity/volume] in Serum or Plasma 2025-04-24 15:06:20 11 U/L F 10.0-49.0 Aspartate aminotransferase [Enzymatic activity/volume] in Serum or Plasma 2025-04-24 15:06:20 14 U/L F 0.0-33.0 InfectionVaccination Description Draw Date Result/Unit Status Ref Range Result Comments Basophils/100 leukocytes in Blood by Automated count 2025-04-25 00:08:08 1.1 % F Neutrophils/100 leukocytes in Blood by Automated count 2025-04-25 00:08:08 60.3 % F Lymphocytes/100 leukocytes in Blood by Automated count 2025-04-25 00:08:08 26.3 % F Monocytes/100 leukocytes in Blood by Automated count 2025-04-25 00:08:08 4.7 % F Leukocytes [#/volume] in Blood by Automated count 2025-04-25 00:08:08 2.7 x 10^3 cells/uL F 4.0-11.0 Eosinophils/100 leukocytes in Blood by Automated count 2025-04-25 00:08:08 7.5 % F Neutrophils [#/volume] in Blood by Automated count 2025-04-25 00:08:08 1628 Cells/uL F 2000.0-8800.0 Lymphocytes [#/volume] in Blood by Automated count 2025-04-25 00:08:08 710 Cells/uL F 620.0-3660.0 Monocytes [#/volume] in Blood by Automated count 2025-04-25 00:08:08 127 Cells/uL F 0.0-1100.0 Basophils [#/volume] in Blood by Automated count 2025-04-25 00:08:08 30 Cells/uL F 0.0-400.0 Eosinophils [#/volume] in Blood by Automated count 2025-04-25 00:08:08 202 Cells/uL F 0.0-700.0 MineralBone Disorder Description Draw Date Result/Unit Status Ref Range Result Comments Parathyrin.intact [Mass/volume] in Serum or Plasma 2025-06-05 05:02:13 377 pg/mL F 18.0-80.0 CA CORRECTED 2025-06-05 03:26:42 8.5 mg/dL F CA/PHOS PRODUCT 2025-06-05 03:24:13 20.5 Calc F 21.0-53.0 CA*PO4 CORRCTD 2025-06-05 03:24:13 21.3 Calc F 21.0-53.0 Calcium [Mass/volume] in Serum or Plasma 2025-06-05 03:11:53 8.2 mg/dL F 8.7-10.4 Phosphate [Mass/volume] in Serum or Plasma 2025-06-05 01:22:22 2.5 mg/dL F 2.4-5.1 CA CORRECTED 2025-05-10 14:13:15 8.9 mg/dL F CA/PHOS PRODUCT 2025-05-10 07:05:45 28.4 Calc F 21.0-53.0 CA*PO4 CORRCTD 2025-05-10 07:05:45 29.4 Calc F 21.0-53.0 Calcium [Mass/volume] in Serum or Plasma 2025-05-10 06:55:04 8.6 mg/dL F 8.7-10.4 Phosphate [Mass/volume] in Serum or Plasma 2025-05-09 20:38:13 3.3 mg/dL F 2.4-5.1 Parathyrin.intact [Mass/volume] in Serum or Plasma 2025-05-09 19:41:18 266 pg/mL F 18.0-80.0 Alkaline phosphatase [Enzymatic activity/volume] in Serum or Plasma 2025-04-24 15:06:20 113 U/L F 46.0-116.0 CA CORRECTED 2025-04-11 17:30:47 8.5 mg/dL F CA/PHOS PRODUCT 2025-04-11 17:29:16 35.7 Calc F 21.0-53.0 CA*PO4 CORRCTD 2025-04-11 17:29:16 36.4 Calc F 21.0-53.0 Calcium [Mass/volume] in Serum or Plasma 2025-04-11 17:27:20 8.3 mg/dL F 8.7-10.4 Parathyrin.intact [Mass/volume] in Serum or Plasma 2025-04-11 15:17:12 479 pg/mL F 18.0-80.0 Phosphate [Mass/volume] in Serum or Plasma 2025-04-11 15:11:18 4.3 mg/dL F 2.4-5.1 Nutrition Description Draw Date Result/Unit Status Ref Range Result Comments Potassium [Moles/volume] in Serum or Plasma 2025-04-24 18:37:04 4.7 mEq/L F 3.5-5.1 A/G RATIO 2025-04-24 15:07:14 1.5 Calc F 1.0-2.5 GLOBULIN 2025-04-24 15:07:14 2.4 g/dL F 0.9-5.0 Albumin [Mass/volume] in Serum or Plasma by Bromocresol green (BCG) dye binding method 2025-04-24 15:06:20 3.6 g/dL F 3.2-4.8 Bicarbonate [Moles/volume] in Serum or Plasma 2025-04-24 15:06:20 25 mEq/L F 20.0-31.0 Glucose [Mass/volume] in Serum or Plasma 2025-04-24 15:06:20 141 mg/dL F 74.0-106.0 Lactate dehydrogenase [Enzymatic activity/volume] in Serum or Plasma 2025-04-24 15:06:20 233 U/L F 120.0-246.0 Protein [Mass/volume] in Serum or Plasma 2025-04-24 15:06:20 6 g/dL F 5.7-8.2 Encounters No encounter information to report Immunizations Ordered Immunization Name Filled Immunization Name Date Status Comments Refusal Reason Influenza, MDCK, trivalent, preservative 2025-04-24 14:27:00 TST-PPD intradermal 2024-11-03 13:42:00 Pneumococcal conjugate PCV20, polysaccharide [id number] conjugate, adjuvant, PF 2024-07-01 14:00:00 Influenza, MDCK, [...] Date Details Commen ts Diagnostic Test Pending Bashir Norris 2025-03-09 06:37:37 Ferritin [Mass/volume] in Serum or Plasma [code = 2276-4] Diagnostic Test Pending Bashir Norris 2022-07-02 06:00:00 Aluminum [Mass/volume] in Serum or Plasma [code = 5574-9] Diagnostic Test Pending Bashir Norris 2025-06-14 06:00:00 Hemoglobin [Mass/volume] in Blood [code = 718-7] Diagnostic Test Pending Bashir Norris 2022-06-11 06:00:00 Glucose [Mass/volume] in Serum or Plasma [code = 2345-7] Diagnostic Test Pending Bashir Norris 2022-06-11 06:00:00 Creatinine [Mass/volume] in Serum or Plasma [code = 2160-0] Diagnostic Test Pending Bashir Norris 2022-06-11 06:00:00 Sodium [Moles/volume] in Serum or Plasma [code = 2951-2] Diagnostic Test Pending Bashir Dhilloncell 2022-06-12 07:36:39 Parathyrin.intact [Mass/volume] in Serum or Plasma [code = 2731-8] [facility] 2022-06-11 06:00:00 Albumin [Mass/volume] in Serum or Plasma by Bromocresol green (BCG) dye binding method [code = 71313-7] Diagnostic Test [facility] 2023-04-01 05:00:00 Alanine aminotransferase [Enzymatic activity/volume] in Serum or Plasma [code = 1742-6] Diagnostic Test Pending Bashir Keegankirstin [facility] 2025-06-03 00:45:47 In-Center Hemodialysis Treatment [code = TDU523] Diet Order [facility] September 03, 2024 Diet Calorie 30 kcal/kg Fluid Value 1000 mL/d Phosphorus Value 960 mg/d Potassium Value 2000 mg/d Protein Value 1.2 gm/kg Sodium Value 2000 mg/d Calculated Weight 70 kg
--- OUTSIDE RECORDS SUMMARY | 2025-06-16 14:26 | XMS_ITS | Clinical Summary ---
Author Organization [facility] [employer] Address [address] [place] [address] Care Team Providers Care Bilingual Manager Name Role Phone Efren Ramirez DO Primary Care Provider Source Comments [facility],non-owned Affiliates and Associated Physician Practices is amultiple site organization consisting of ambulatory clinics and hospital sitesin [place], [place], [place] and [place]. This disclosure is being madepursuant to the Care Everywhere program and may not contain all information available regarding this patient. Last updated 18.[facility] [employer] Allergies No known active allergies Medications * [...] 80 PTH Intact 546.1 (H) 12/07/22 13:03 Exoyi-6-Blkaiinolxp 119 Qfxxj-1-Ilircinvriw Phenotype M1S Ceruloplasmin 25 Osmolality Calculated 301 [...] 04/26/23 09:45 04/26/23 09:46 dsDNA Antibody 15 Fofana/PLAN CHECKER Antibodies 2 Fofana (FRANCESCA) Antibody 6 Complement [...] Impression: It is the impression of this perinatal social worker that Leonidajay Cuello has several positive factors for Liver/Kidney transplant candidacy including knowledge of illness, sufficient insurance coverage, stable financial situation for post transplant needs, adequate support system, and appropriate discharge plan. Pt has committed to lifelong abstinence and will maintain alcohol free household RP/Provider impression scanned to file Court docs scanned to file Provider impression charted 11/20 Plan: match up worker to provide supportive services as needed. Patient appears to be a reasonable candidate for transplant from a psychosocial perspective. Post transplant arrangement forms are needed prior to being listed. Psychiatric Consult Recommended: no Transplant Au Pair: Tala Villalta LCSW Liver Transplant Education 12/07/2022 Linh Forde, zumba instructorWeighmaster ENT 11/29/22 - +chew tobacco Findings: -No [...] committee and are final. Amelia Corral MD assembler piano Transplant Surgery [facility] Transplant Surgery Consultation 01/21/24 Dr. Corral - need note Transplant Nephrology Consultation 01/29/23 I consider the patient an excellent candidate for a simultaneous Liver-Kidney Transplantation. The patient needs ECHO of heart due to a grade 2-3/6 systolic murmur all over the anterior precordium radiating to carotids and anterior Lt axillary line. Also check Anti-DS-DNA Ab, Anti-Fofana Ab, Anti-PLAN CHECKER Ab, C3, C4, CH50, Lupus anticoagulants titer. [...] (end stage renal disease) 06/11/2024 06/11/2024 Immunizations Immunization Administration Dates Next Due [facility] 18+YR 09/16/2020 FLU VACCINE TRI IIV3 [...] Recorded Patient Health Questionnaire-2 Score 0 03/05/2025 [facility] of Occupat ional Health - Occupational Stress [...] place to sleep or slept in a [place] facility (including now)? No 11/01/2023 Housing Stability Vital Sign Answer Armaan e Recorded In the last 12 months, was t here a time when you were not able to pay the mortgage or rent on time? No 06/12/2024 In the past 12 months, how m any times have you moved where you were living? 0 06/12/2024 At any time in the past 12 m [facility], were you homeless or living in a [place] facility (including now)? No 06/12/2024 Sex and Gender [...] 2) 01/08/2024 11/13/2023 COVID-19 VACCINE ( - 2024- season) 2025 05/02/2022, 06/13/2021, 09/16/2020 INFLUENZA VACCINE [...] last dose Medical Devices Implanted Type Area Flyer Repairer Device Identifier Shelf Expiration Date Model / Serial / Lot Kit Durathane Drflw Embosafe Chrnc Dlys Implanted:Qty: 1 on 03/07/2019 by Trav Merrill MD at [facility] Right: Chest [employer] 03/31/2021 [id number] / / [id number] Graft Vasc 6mm 40cm Ptfe Flixene Sldr - [id number] Implanted:Qty: 1 on 02/21/2022 by Kiko Pena MD at [facility] Left: Arterial Maquet 07/20/2023 [id number] / [id number] / Mesh Srg Parietex Progrip 14x9cm Slf Implanted:Qty: 1 on 07/11/2024 by Theron Medlelin MD at [facility] Right: Inguinal Covidien [id number] 08/29/2028 [id number] / / [id number] Procedures Procedure Name Priority Date/Time Associated Diagnosis Comments HEPATITIS C AB SCREEN RFLX NAAT QUANT Routine 05/21/2024 2:29 AM ASSOCIATE ACCOUNT EXECUTIVE HIV-1 HIV-2 ANTIBODY + HIV P24 AG PANEL STAT 05/21/2024 2:29 AM ASSOCIATE ACCOUNT EXECUTIVE LIPID PROFILE Routine 12/25/2023 8:13 AM CDT [...] SCREEN RFLX NAAT QUANT (05/21/2024 2:29 AM ASSOCIATE ACCOUNT EXECUTIVE) Hepatitis C Antibody Non-react jaden Non-reac tive 05/22/2024 8:44 AM ASSOCIATE ACCOUNT EXECUTIVE [facility] Comment:Hepatitis C Antibody screen indicates [...] Lab Venipuncture / Unknown 05/21/2024 2:29 AM ASSOCIATE ACCOUNT EXECUTIVE 05/21/2024 3:08 AM ASSOCIATE ACCOUNT EXECUTIVE Uli Murphy MD LAB - CHEMISTRY ORDERABLES Fi nal Result Performing Organization Address [facility]/ZIP Co de Phone Number [address] [address], [place] [phone] * HIV-1 HIV-2 ANTIBODY + HIV P24 AG PANEL (05/21/2024 2:29 AM ASSOCIATE ACCOUNT EXECUTIVE) Pathologist [facility] HIV Antigen/Antibod y 1 & 2 Non-reacti ve Non-react jaden 05/22/2024 8:44 AM [facility] Comment:No Laboratory eviden ce of HIV infection. Blood BLOOD SPECIMEN / Unknown Lab Venipuncture / Unknown 05/21/2024 2:29 AM ASSOCIATE ACCOUNT EXECUTIVE 05/21/2024 3:08 AM ASSOCIATE ACCOUNT EXECUTIVE Uli Murphy MD LAB - CHEMISTRY ORDERABLES Fi nal Result Performing Organization Address [facility] Co de Phone Number [address] [address], [place] [phone] * (ABNORMAL) LIPID PROFILE (12/25/2023 8:13 AM CDT) Cholesterol Total 104 <200 mg/dL 12/25/2023 9:18 AM [facility] HDL 37(L) >40 mg/dL 12/25/2023 9:18 AM [facility] Comment: ATP III Classification of HDL Cholesterol: <40 mg/dL: Considered a major risk factor. >60 mg/dL: Considered a negative risk factor. LDL Calculated 56 <100 mg/dL 12/25/2023 9:18 AM [facility] Comment: ATP III Classification of LDL Cholesterol: <100 mg/dL: Optimal 100 - 129 mg/dL: Near Optimal/Above Optimal 130 - 159 mg/dL: Borderline High 160 - 189 mg/dL: High >190 mg/dL: Very High Triglycerides 57 <150 mg/dL 12/25/2023 9:[address] [facility] Comment: ATP III Classification of Triglycerides: <150 mg/dL: Normal 150 - 199 mg/dL: Borderline High 200 - 400 mg/dL: High >500 mg/dL: Very High Blood BLOOD SPECIMEN / Unknown Lab Venipuncture / Unknown 12/25/2023 8:13 AM CDT 12/25/2023 8:37 AM CDT Eugenie Dsouza AUTO SERVICE STATION ATTENDANT-GEAR AND SPLINE GRINDER LAB - CHEMISTRY ORD ERABLES Final Result [address] [address], [facility] [phone] * ENDOSCOPY, COLON, DIAGNOSTIC (01/12/2020 3:38 PM CDT) Report Endoscopy POC Endoscopy Department Report _ Patient Name: Leonid Cuello Procedure Date: 01/12/2020 3:38 PM Date of : 1965 Classification: Outpatient Gender: Male Ethnicity: Not or Race: White _ Providers: Connor Virgen Referring MD: Melecio Graves (Referring ) Procedure: Upper GI endoscopy Indications: Dysphagia, Variceal [...] entire procedure. 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 All rights reserved. The codes documented in this report are preliminary and upon electric frying pan repairer review may be revised to meet current compliance requirements. _ Connor Virgen, 01/12/2020 4:25:45 PM Note Initiated On: 01/12/2020 3:38 PM Number of Addenda: 0 [facility] [address] [place] [address] [facility] 01/12/2020 3:38 PM CDT Connor Chavez MD GI PROCEDURE ORDERAB LES Edited Result - Final [facility] from Last 3 Months or Most Recently Relevant to Health Maintenance Insurance MEDICARE [facility] MEDICARE Advance Directives Documents on File Type Date Recorded Patient Fast Food Assistant Restaurant Manager Expl anation Adv Directive/Living Will/POA 06/05/2019 * [...] 2:16 PM 02/22/2022 12:05 PM Care Teams Bilingual Manager Relationship Specialty Start Date End Date Efren Ramirez DO [address] [place] [address] PCP - General Internal Medicine 06/12/24
--- OUTSIDE RECORDS SUMMARY | 2025-06-16 14:26 | XMS_ITS | Encounter Summary ---
Author Organization [facility] Healthcare Address [address] [place] [address] Care Team Providers Care Coding Assistant Name Role Phone Dm Pena MD Primary Care Provider [phone] Hermelindo Avilez MD Unavailable [phone] Milla Calero RN Unavailable [phone] Melecio Graves MD Unavailable [phone] Nupur Shea RN Unavailable Unavailabl e Salena Hobson RN Unavailable [phone] Encounter Details Date Type Department Care Team (Late st Contact Info) Description 11/20/2024 Telephone [facility] [address] [place] [address] Pete Santoro, RT Social History [...] often do you attend chur ch or anabaptism services? 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 file Not on file Not on file documented as of this encounter Plan of Treatment Scheduled Procedures Name Priority Associated Diagnoses Date/Ti me TRANSPLANT LIVER Encounter for pre-transplant evaluation for liver transplant Alcoholic liver disease documented as of this encounter Visit Diagnoses Not on filedocumented in this encounter Care Teams Coding Assistant Relationship Specialty Start Date End Date Dm Pena MD [address] [place], [place] [address] PCP - General 03/05/19 Hermelindo Avilez MD [address], [place] [address] Referring Physician Nephrology 09/23/20 Milla Calero, RN [address] [place] [address] Alley Tender 09/10/24 Melecio Graves MD [address] [place] [address] Referring Physician Internal Medicine 09/10/24 Nupur Shea optical instruments supervisorAlley Tender 09/30/24 Salena Hobson, RN [address] [place] [address] Secondary Kidney Coordinator 10/27/24 01/20/25 documented as of this encounter
--- OUTSIDE RECORDS SUMMARY | 2025-06-16 14:26 | XMS_ITS | Clinical Summary ---
Author Organization [facility] [employer] Address [address] [place] [address] Care Team Providers Care Insurance Business Analyst Name Role Phone Efren Ramirez DO Primary Care Provider Social History Tobacco Use Types Packs/Day Years Used Date Smoking Tobacco: Never Assessed Sex and Gender Information Value Date Recorded Sex Assigned at Not on file Legal Sex Male 12:06 PM SPORTS COORDINATOR Gender Identity Not on file Sexual Orientation Not on file Plan of Treatment Upcoming Encounters Date Type Department Care Team (Late st Contact Info) Description 06/29/2025 1:30 PM SPORTS COORDINATOR Office Visit [facility] Oncology and Hematology - [address] [address] Vinod Henriquez MD [address] [place] [address] Health Maintenance Due Date Last Done Comments DTAP/TDAP/TD VACCINES (1 - Tdap) 1984 HEPATITIS B VACCINES (1 of 3 - 19+ 3-dose series) 12/1984 COLORECTAL SCREENING 2010 Colorectal Cancer Screening 2010 FIT-DNA Q 3 years 2010 FIT/FOBT Q 1 year 2010 Flex Sig/CT Colonography Q 5 years 2010 ZOSTER VACCINE (1 of 2) 12/07/2015 INFLUENZA VACCINE (#1) 2025 Insurance MEDICARE PART A AND B [facility] BLUE PREFERRED [facility] SUPP Care Teams Insurance Business Analyst Relationship Specialty Start Date End Date Efren Ramirez DO [address] [address] PCP - General Internal Medicine 06/08/25
--- OUTSIDE RECORDS SUMMARY | 2025-06-16 14:26 | XMS_ITS | Encounter Summary ---
Author Organization [facility] Health Address [address] [place] [address] Care Team Providers Care Forwarder Operator Name Role Phone Dm Pena MD Primary Care Provider Efren Ramirez DO Primary Care Provider Encounter Details Date Type Department Care Team (Late st Contact Info) Description 07/15/2019 Pre-evaluation Visit [facility] [address] [place] [id number] Allie Noland, PT Social History Tobacco Use [...] Under Investigation 07/19/2021 07/19/2021 07/19/2021 1:09 PM MANAGER ENVIRONMENTAL AFFAIRS COVID-19 Confirmed 07/19/2021 07/19/2021 4:33 AM MANAGER ENVIRONMENTAL AFFAIRS COVID-19 Under Investigation 10/29/2023 10/29/2023 10/29/2023 9:28 AM CDT COVID-19 Under Investigation 09/22/2024 09/22/2024 09/22/2024 12:05 PM CDT documented as of this encounter Care Teams Forwarder Operator Relationship Specialty Start Date End Date Dm ePna MD [address] [address] PCP - General Family Medicine 02/06/19 06/11/24 Efren Ramirez DO [address] [place] [phone] PCP - General Internal Medicine 06/12/24 documented as of this encounter
--- OUTSIDE RECORDS SUMMARY | 2025-06-16 14:26 | XMS_ITS | Clinical Summary ---
Author Organization [facility] Office Center Address [address] [place] [address] Care Team Providers Care Supervisor Pipeline Maintenance Name Role Phone Dm Pena MD Primary Care Provider [phone] Hermelindo Avilez MD Unavailable [phone] Milla Calero RN Unavailable Melecio Graves MD Unavailable Nupur Shea RN Unavailable Unavailabl e Allergies [...] Encounters Date Type Department Care Team Description 06/09/2025 Telephone [facility] Transplant Kidney [address] [facility] [address] [phone] [place] [address] Nupur Shea, RN 06/09/2025 Telephone [facility] Transplant Kidney [address] [facility] [address] [id number] [place] [address] Salena Mcdowell 06/01/2025 Documentation [facility] Transplant Kidney [address] [facility] [address] [id number] [place] [address] Radha Willingham Evaluation Scheduling 05/27/2025 Telephone [facility] Transplant Kidney [address] [facility] [address] [id number] [place] [address] Nupur Shea RN 05/27/2025 Telephone [facility] Transplant Kidney [address] [facility] [address] Mail[address] [phone] [place] [address] Nupur Shea, RN 05/21/2025 Telephone [facility] Transplant Kidney [address] [facility] [address] [id number] [place] [address] Nupur Shea, RN 05/21/2025 Telephone [facility] Transplant Kidney [address] [facility] [address] [id number] [place] [address] Shahida Avila 05/19/2025 Telephone [facility] Transplant Kidney [address] [facility] [address] [id number] [place] [address] Nupur Shea, RN 05/19/2025 Telephone [facility] Transplant Kidney [address] [facility] [address] Mailstop [phone] [place] [address] BeanstephanieSalena tariq 05/15/2025 Telephone [facility] Transplant Kidney [address] [facility] [address] [id number] [place] [address] Nupur Shea, RN 05/11/2025 Telephone [facility] Transplant Kidney [address] [facility] [address] Mail[address] [id number] [place] [address] Nupur Shea, RN 05/11/2025 Documentation [facility] Transplant Liver [address] [facility] [address] [address] [place] [address] Mckenzie Ibarra 05/07/2025 Telephone [facility] Transplant Liver [address] [facility] [address] Mail[address] [id number] [place] [address] Milla Calero, DIVINE 05/07/2025 Telephone [facility] Transplant Liver [address] [facility] [address] [id number] [place] [address] Mckenzie Ibarra 05/07/2025 Telephone [facility] Transplant Kidney [address] [facility] [address] [id number] [place] [address] Nupur Shea, DIVINE 05/07/2025 Telephone [facility] Transplant Kidney [address] [facility] [address] Mailstop [phone] [place] [address] Shahida Avila 04/23/2025 Telephone [facility] Transplant Liver [address] [facility] [address] [id number] [place] [address] Hermelinda Choudhary/21/2025 Telephone [facility] Transplant Kidney [address] [facility] [address] Mailstop [phone] [place] [address] Nupur Shea, RN 04/21/2025 Telephone [facility] Transplant Liver [address] [facility] [address] Mailstop [phone] [place] [address] Milla Calero, DIVINE from Last 3 Months Surgical History Surgery Date Site/Laterality Comments [place] VASECTOMY UNI/BI SPX W/PO STOP SEMEN EXAMS [...] often do you attend chur ch or christianity services? 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 Does NOT exclude the possibility of recent exposure to HCV. Blood specimen (specimen) 09/22/2020 12:51 PM CDT 09/22/2020 1:40 PM CDT Dean Echols MD LAB MICROBIOLOGY - GEN ERAL ORDERABLES Edited Result - Final RA BJ [facility] [place] [address] from Last 3 Months or Most Recently Relevant to Health Maintenance Insurance [place]ARE [facility] Address: [address] [address] [place] [address] MEDICARE MEDICARE Member Subscriber Plan / Payer (Ef fective 2020-Present) Name:Cuello Jj Denis Member ID:[id number] Relation to Subscriber:Self Name:Cuello Jj Barrios Subscriber ID:[id number] Payer ID:[id number] Group ID:Not on file Type:MEDICARE TRADITIONAL Address: [place] [phone] [facility] MEDICARE SUPPLEMENT MEDICARE Care Teams Supervisor Pipeline Maintenance Relationship Specialty Start Date End Date Dm Pena MD [address] [place] [address] PCP - General 03/05/19 Hermelindo Avilez MD [address] [place] [address] Referring Physician Nephrology 09/23/20 Milla Calero, RN [address] [facility] [address] [place] [address] Storage Receipt Poster 09/10/24 Melecio Graves MD [address] [place] [address] Referring Physician Internal Medicine 09/10/24 Nupur Shea RN Storage Receipt Poster 09/30/24
--- OUTSIDE RECORDS SUMMARY | 2025-06-16 14:26 | XMS_ITS | Clinical Summary ---
Author Organization [facility] Address [facility] [place] [address] Care Team Providers Care Resource Engineer Name Role Phone Dm Pena MD Primary [...] daily. 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 file Not on file Not on file Last Filed Vital Signs Vital Sign Reading Time Taken Comments Blood Pressure 124/62 07/05/2023 1:07 PM BOOKSTORE MANAGER Pulse 57 12/05/2021 6:35 PM CDT Temperature 36.8 C (98.3 F) 08/29/2022 2:49 PM BOOKSTORE MANAGER Respiratory Rate 17 12/05/2021 6:35 PM CDT Oxygen Saturation 96% 12/05/2021 6:35 PM CDT Inhaled Oxygen Concentration - - Weight 81.2 kg (179 lb) 07/05/2023 1:07 PM BOOKSTORE MANAGER Height 175.3 cm (5' 9) 01/25/2023 1:06 [...] 01/2023, 11/02/2021, Additional history exists PHQ-2 (Physician [place]) 07/02/2024 Lipid Panel 12/24/2024 12/25/2023, 06/0 01/2023, [...] this topic Medical Devices Implanted Type Area Monotype Caster Device Identifier Shelf Expiration Date Model / [...] the left lateral decubitus position, the Olympus [id number] colonoscope was introduced into the rectum and [...] HGB A1C 4.8 4.2 - 6.5 % [facility] 11/02/2021 10:0 5 AM CDT Dm Pena MD LABORATORY Final Resul t [facility] [address] [address] * (ABNORMAL) LIPID PANEL (09/09/2013 9:23 AM [...] Health Maintenance Insurance MEDICARE MEDICARE Care Teams Resource Engineer Relationship Specialty Start Date End Date Dm Pena MD [address] [id number] PCP - General FAMILY PRACTICE 10/23/18
--- OUTSIDE RECORDS SUMMARY | 2025-06-16 14:26 | XMS_ITS | Encounter Summary ---
Author Organization [facility] Address [address] [facility] [place] [address] Care Team Providers Care Car Inspector Name Role Phone Dm Pena MD Primary Care Provider [phone] Efren Ramirez DO Primary Care Provider [phone] Encounter Details Date Type Department Care Team (Late st Contact Info) Description 01/26/2019 Procedure visit [facility] ANESTHESIA [address] [place] [address] Levi Candelario, DO [address] [facility] [address] [place] [address] Anesthesia Record Procedure Summary Procedure [...] as of this encounter Functional Status * Question Answer Date of Assessment Author Is [...] Under Investigation 07/19/2021 07/19/2021 07/19/2021 1:09 PM 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
--- OUTSIDE RECORDS SUMMARY | 2025-06-16 14:26 | XMS_ITS ---
Author Organization [facility] Address [address] [place] [address] Care Team Providers Care Electronic Component Processor Name Role Phone Dm Pena MD Primary Care Provider + [phone] Hermelindo Avilez MD Unavailable [phone] Milla Calero RN Unavailable [phone] Melecio Graves MD Unavailable [phone] Nupur Shea RN Unavailable Unavailabl e Transplant Episode Kidney Candidate [facility] ([place], [place]) - [facility] Evaluation began on 09/30/2024 Marked as Active on 09/30/2024 Reason: Evaluation - Standard Kidney CoordinatorNupur Shea RN Phone: N/A Fax: N/A Email: N/A Scores Score Value Updated Exceptions/Reas ons CPRA Not available EPTS (Calc) 53 06/16/2025 [place] 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
== END 2025-06-16 12:25 | disposition home or self-care (01) ==
PROVIDERS: PCP Internal Medicine; Visit Provider Internal Medicine Nephrology
DX: K70.30 Alcoholic cirrhosis of liver without ascites (principal)
CPT/HCPCS: 36415; 82140

== ENCOUNTER 2025-06-23 10:13 | Outpatient (CLI) | payer MEDICARE, SELFPAY ==
--- OUTSIDE RECORDS SUMMARY | 2025-06-23 10:47 | XMS_ITS | Clinical Summary ---
Author Organization [facility] Address [address] [place] [address] Phone Care Team Providers Care Lever Miller Name Role Phone SchaeferLonnie avalos Primary Care Provider [phone] Allergies No known active allergies Medications amLODIPine [...] night if needed Active ergocalciferol (VITAMIN D-2) 43528 units capsule Take 50,000 Units by mouth [...] Vaccine (#1) 2025 04/27/2017, 2014 Insurance [facility] Care Teams Lever Miller Relationship Specialty Start Date End Date Lonnie Schaefer DO [address] [facility] [address] [place] [address] PCP - General 02/21/19
--- OUTSIDE RECORDS SUMMARY | 2025-06-23 10:47 | XMS_ITS | Encounter Summary ---
Author Organization [facility] Address [address] [place] [address] Care Team Providers Care Roustabout Crew Name Role Phone Dm Pena MD Primary Care Provider Efren Ramirez DO Primary Care Provider Encounter Details Date Type Department Care Team (Late st Contact Info) Description 03/09/2020 Telephone [facility] [address] [place] [address] Kiko Pena MD [address] [place] [address] Social History Tobacco Use Types Packs/Day Years [...] Under Investigation 07/19/2021 07/19/2021 07/19/2021 1:09 PM BRIDGE CLUB MANAGER COVID-19 Confirmed 07/19/2021 07/19/2021 4:33 AM BRIDGE CLUB MANAGER COVID-19 Under Investigation 10/29/2023 10/29/2023 10/29/2023 9:28 AM CDT COVID-19 Under Investigation 09/22/2024 09/22/2024 09/22/2024 12:05 PM CDT documented as of this encounter Care Teams Roustabout Crew Relationship Specialty Start Date End Date Dm Pena MD [address] [address] PCP - General Family Medicine 02/06/19 06/11/24 Efren Ramirez DO [address] [place] [phone] PCP - General Internal Medicine 06/12/24 documented as of this encounter
--- OUTSIDE RECORDS SUMMARY | 2025-06-23 10:47 | XMS_ITS | Encounter Summary ---
Author Organization [facility] Address [address] [place] [address] Phone Care Team Providers Care Market News Reporter Name Role Phone Lonnie Schaefer DO Primary Care Provider [phone] Encounter Details Date Type Department Care Team (Late st Contact Info) Description 04/20/2022 [facility] Nephrology and Hypertension [address] [facility], [address] [place] [address] Aleja Norris RN Social History Tobacco Use Types Packs/Day Years Used Date Smoking Tobacco: Never Smokeless Tobacco: Never Alcohol Use Standard Drinks/Week Comments Yes 0 (1 standard drink = 0.6 oz pure alcohol) Alcoholic Drinks/day: has recently quit, was a very heavy drinker Sex and Gender Information Value Date Recorded Sex Assigned at Not on file Legal Sex Male 7:57 AM [facility] Gender Identity Not on file Sexual [...] on filedocumented in this encounter Care Teams Market News Reporter Relationship Specialty Start Date End Date Lonnie Schaefer DO [address] [facility] [address] [place] [phone] PCP - General 02/21/19 documented as of this encounter
[2025-06-23 10:49] LABS: Ammonia 83 umol/L (9-30)
--- OUTSIDE RECORDS SUMMARY | 2025-06-23 10:49 | XMS_ITS | Clinical Summary ---
Author Organization [facility] Address [address] [place] [address] Care Team Providers Care Staff Anesthetist Name Role Phone Efren Ramirez DO Primary Care Provider [phone] Source Comments [facility],non-owned Affiliates and Associated Physician Practices is amultiple site organization consisting of ambulatory clinics and hospital sitesin [place], [place], [place]. This disclosure is being madepursuant to the Care Everywhere program and may not contain all information available regarding this patient. Last updated 18.[facility] Allergies No known active allergies Medications * [...] 80 PTH Intact 546.1 (H) 12/07/22 13:03 Bkojr-0-Cnmoxqyxrfo 119 Mtdkn-4-Wtlujzmldvj Phenotype M1S Ceruloplasmin 25 Osmolality Calculated 301 [...] 04/26/23 09:45 04/26/23 09:46 dsDNA Antibody 15 Fofana/LICENSED MENTAL HEALTH COUNSELOR Antibodies 2 Fofana (FRANCESCA) Antibody 6 Complement [...] is the impression of this social media campaign manager that Leonidajay Cuello has several positive factors for Liver/Kidney transplant candidacy including knowledge of illness, sufficient insurance coverage, stable financial situation for post transplant needs, adequate support system, and appropriate discharge plan. Pt has committed to lifelong abstinence and will maintain alcohol free household RP/Provider impression scanned to file Court docs scanned to file Provider impression charted 11/20 Plan: foundry worker to provide supportive services as needed. Patient appears to be a reasonable candidate for transplant from a psychosocial perspective. Post transplant arrangement forms are needed prior to being listed. Psychiatric Consult Recommended: no Transplant Welder Fitter Apprentice: Tala Villalta LCSW Liver Transplant Education 12/07/2022 Linh Forde, bariatric physicianMachinist Mechanic ENT 11/29/22 - +chew tobacco Findings: -No [...] committee and are final. Amelia Corral MD medical office asst Transplant Surgery [facility] Transplant Surgery Consultation 01/21/24 Dr. Corral - need note Transplant Nephrology Consultation 01/29/23 I consider the patient an excellent candidate for a simultaneous Liver-Kidney Transplantation. The patient needs ECHO of heart due to a grade 2-3/6 systolic murmur all over the anterior precordium radiating to carotids and anterior Lt axillary line. Also check Anti-DS-DNA Ab, Anti-Fofana Ab, Anti-LICENSED MENTAL HEALTH COUNSELOR Ab, C3, C4, CH50, Lupus anticoagulants titer. [...] Recorded Patient Health Questionnaire-2 Score 0 03/05/2025 [facility] [place] [facility] Occupat ional Health - Occupational Stress [...] place to sleep or slept in a detention (including now)? No 11/01/2023 Housing Stability Vital Sign Answer Armaan e Recorded In the last 12 months, was t here a time when you were not able to pay the mortgage or rent on time? No 06/12/2024 In the past 12 months, how m any times have you moved where you were living? 0 06/12/2024 At any time in the past 12 m [facility], were you homeless or living in a detention (including now)? No 06/12/2024 Sex and Gender [...] last dose Medical Devices Implanted Type Area Studio Operations Manager Device Identifier Shelf Expiration Date Model / Serial / Lot Kit Durathane Drflw Embosafe Chrnc Dlys Implanted:Qty: 1 on 03/07/2019 by Trav Merrill MD at [facility] Right: Chest [employer] 03/31/2021 [id number] / / [id number] Graft Vasc 6mm 40cm Ptfe Flixene Sldr - [id number] Implanted:Qty: 1 on 02/21/2022 by Kiko Pena MD at [facility] Left: Arterial Maquet 07/20/2023 [id number] / [id number] / Mesh Srg Parietex Progrip 14x9cm Slf Implanted:Qty: 1 on 07/11/2024 by Theron Medellin MD at [facility] Right: Inguinal Covidien [id number] 08/29/2028 [id number] / / [id number] Procedures Procedure Name Priority Date/Time Associated Diagnosis Comments HEPATITIS C AB SCREEN RFLX NAAT QUANT Routine 05/21/2024 2:29 AM SAS SQL DEVELOPER HIV-1 HIV-2 ANTIBODY + HIV P24 AG PANEL STAT 05/21/2024 2:29 AM SAS SQL DEVELOPER LIPID PROFILE Routine 12/25/2023 8:13 AM CDT [...] SCREEN RFLX NAAT QUANT (05/21/2024 2:29 AM SAS SQL DEVELOPER) Hepatitis C Antibody Non-react jaden Non-reac tive 05/22/2024 8:44 AM SAS SQL DEVELOPER [facility] Comment:Hepatitis C Antibody screen [...] Lab Venipuncture / Unknown 05/21/2024 2:29 AM SAS SQL DEVELOPER 05/21/2024 3:08 AM SAS SQL DEVELOPER Uli Murphy MD LAB - CHEMISTRY ORDERABLES Fi nal Result Performing Organization Address [facility]/ZIP Co de Phone Number [address] [address], [place] [phone] * HIV-1 HIV-2 ANTIBODY + HIV P24 AG PANEL (05/21/2024 2:29 AM SAS SQL DEVELOPER) Pathologist [facility] HIV Antigen/Antibod y 1 & 2 Non-reacti ve Non-react jaden 05/22/2024 8:44 AM [facility] Comment:No Laboratory eviden ce of HIV infection. Blood BLOOD SPECIMEN / Unknown Lab Venipuncture / Unknown 05/21/2024 2:29 AM SAS SQL DEVELOPER 05/21/2024 3:08 AM SAS SQL DEVELOPER Uli Murphy MD LAB - CHEMISTRY ORDERABLES Fi nal Result Performing Organization Address [facility] Co de Phone Number [address] [address], [place] [phone] * (ABNORMAL) LIPID PROFILE (12/25/2023 8:13 AM CDT) Cholesterol Total 104 <200 mg/dL 12/25/2023 9:18 AM [facility] HDL 37(L) >40 mg/dL 12/25/2023 9:18 AM [facility] Comment: ATP III Classification of HDL Cholesterol: <40 mg/dL: Considered a major risk factor. >60 mg/dL: Considered a negative risk factor. LDL Calculated 56 <100 mg/dL 12/25/2023 9:18 AM [facility] Comment: ATP III Classification of LDL Cholesterol: <100 mg/dL: Optimal 100 - 129 mg/dL: Near Optimal/Above Optimal 130 - 159 mg/dL: Borderline High 160 - 189 mg/dL: High >190 mg/dL: Very High Triglycerides 57 <150 mg/dL 12/25/2023 9:18 AM CDT [facility] Comment: ATP III Classification of Triglycerides: <150 mg/dL: Normal 150 - 199 mg/dL: Borderline High 200 - 400 mg/dL: High >500 mg/dL: Very High Blood BLOOD SPECIMEN / Unknown Lab Venipuncture / Unknown 12/25/2023 8:13 AM CDT 12/25/2023 8:37 AM CDT Eugenie Dsouza ATMOSPHERIC SCIENTIST-SUB PRIOR LAB - CHEMISTRY ORD ERABLES Final Result [address] [address], [facility] [phone] * ENDOSCOPY, COLON, DIAGNOSTIC (01/12/2020 3:38 PM [...] entire procedure. 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 All rights reserved. The codes documented in this report are preliminary and upon excelsior picker review may be revised to meet current compliance requirements. _ Connor Virgen, 01/12/2020 4:25:45 PM Note Initiated On: 01/12/2020 3:38 PM Number of Addenda: 0 [facility] [address] [place] [address] [facility] 01/12/2020 3:38 PM CDT Connor Chavez MD GI PROCEDURE ORDERAB LES Edited Result - Final [facility] from Last 3 Months or Most Recently Relevant to Health Maintenance Insurance MEDICARE [facility] MEDICARE Advance Directives Documents on File Type Date Recorded Patient Internal Communications Manager Expl anation Adv Directive/Living Will/POA 06/05/2019 [...] 2:16 PM 02/22/2022 12:05 PM Care Teams Staff Anesthetist Relationship Specialty Start Date End Date Efren Ramirez DO [address] [place] [address] PCP - General Internal Medicine 06/12/24
--- OUTSIDE RECORDS SUMMARY | 2025-06-23 10:49 | XMS_ITS | Clinical Summary ---
Author Organization [facility] Address [facility] [place] [address] Care Team Providers Care Air Defence Officer Name Role Phone Dm Pena MD Primary [...] daily. 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 Not on file Not on file Last Filed Vital Signs Vital Sign Reading Time Taken Comments Blood Pressure 124/62 07/05/2023 1:07 PM COMPUTER SECURITY COORDINATOR Pulse 57 12/05/2021 6:35 PM CDT Temperature 36.8 C (98.3 F) 08/29/2022 2:49 PM COMPUTER SECURITY COORDINATOR Respiratory Rate 17 12/05/2021 6:35 PM CDT Oxygen Saturation 96% 12/05/2021 6:35 PM CDT Inhaled Oxygen Concentration - - Weight 81.2 kg (179 lb) 07/05/2023 1:07 PM COMPUTER SECURITY COORDINATOR Height 175.3 cm (5' 9) 01/25/2023 1:06 [...] 01/2023, 11/02/2021, Additional history exists PHQ-2 (Physician [place]) 07/02/2024 Lipid Panel 12/24/2024 12/25/2023, 06/0 01/2023, [...] this topic Medical Devices Implanted Type Area Carpentry Teacher Device Identifier Shelf Expiration Date Model / [...] the left lateral decubitus position, the Olympus [id number] colonoscope was introduced into the rectum and [...] HGB A1C 4.8 4.2 - 6.5 % [facility] 11/02/2021 10:0 5 AM CDT Dm Pena MD LABORATORY Final Resul t [facility] [address] [address] * (ABNORMAL) LIPID PANEL (09/09/2013 [...] Health Maintenance Insurance MEDICARE MEDICARE Care Teams Air Defence Officer Relationship Specialty Start Date End Date Dm Pena MD [address] [phone] PCP - General FAMILY PRACTICE 10/23/18
--- OUTSIDE RECORDS SUMMARY | 2025-06-23 10:49 | XMS_ITS ---
Author Organization [facility] Address [address] [place] [address] Care Team Providers Care Lens Mounter Name Role Phone Dm Pena MD Primary Care Provider + [phone] Hermelindo Avilez MD Unavailable [phone] Milla Calero RN Unavailable [phone] Melecio Graves MD Unavailable [phone] Nupur Shea RN Unavailable Unavailabl e Transplant Episode Kidney Candidate [facility] ([place], [place]) - 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
--- OUTSIDE RECORDS SUMMARY | 2025-06-23 10:49 | XMS_ITS | Encounter Summary ---
Author Organization [facility] Health Address [address] [facility] [place] [address] Care Team Providers Care Non Destructive Testing Specialist Name Role Phone Dm Pena MD Primary Care Provider Efren Ramirez DO Primary Care Provider Encounter Details Date Type Department Care Team (Late st Contact Info) Description 07/15/2019 Pre-evaluation Visit [facility] PT [address] [place] [phone] Allie Noland, PT Social History Tobacco Use [...] Author No 04/18/2019 6:40 PM CDT Amina Hyaes RN documented as of this encounter Mental [...] Under Investigation 07/19/2021 07/19/2021 07/19/2021 1:09 PM MAC ARTIST COVID-19 Confirmed 07/19/2021 07/19/2021 4:33 AM MAC ARTIST COVID-19 Under Investigation 10/29/2023 10/29/2023 10/29/2023 9:28 AM CDT COVID-19 Under Investigation 09/22/2024 09/22/2024 09/22/2024 12:05 PM CDT documented as of this encounter Care Teams Non Destructive Testing Specialist Relationship Specialty Start Date End Date Dm Pena MD [address] [address] PCP - General Family Medicine 02/06/19 06/11/24 Efren Ramirez DO [address] [place] [phone] PCP - General Internal Medicine 06/12/24 documented as of this encounter
--- OUTSIDE RECORDS SUMMARY | 2025-06-23 10:49 | XMS_ITS | Encounter Summary ---
Author Organization [facility] Address [facility] [place] [address] Care Team Providers Care Regional Business Development Manager Name Role Phone Lonnie Schaefer DO Primary Care Provider Dm Pena MD Primary Care Provider [phone] Encounter Details Date Type Department Care Team (Late st Contact Info) Description 09/15/2017 Abstract [facility] CONVERSION [address] [place] [address] , Generic Conversion, Social History Tobacco Use [...] on filedocumented in this encounter Care Teams Regional Business Development Manager Relationship Specialty Start Date End Date Lonnie Schaefer DO [address] [place] [address] PCP - General 11/17/14 10/22/18 Dm Pena MD [address] [address] PCP - General FAMILY PRACTICE 10/23/18 documented as of this encounter
--- OUTSIDE RECORDS SUMMARY | 2025-06-23 10:49 | XMS_ITS | Encounter Summary ---
Author Organization [facility] Healthcare Address [address] [place] [address] Care Team Providers Care Customer Project Manager Name Role Phone Dm Pena MD Primary Care Provider [phone]- [phone] Hermelindo Avilez MD Unavailable [phone] Milla Calero RN Unavailable [phone] Melecio Graves MD Unavailable [phone] Nupur Shea RN Unavailable Unavailabl e Salena Hobson RN Unavailable [phone] Encounter Details Date Type Department Care Team (Late st Contact Info) Description 11/20/2024 Telephone [facility] [address] [place] [address] Pete Santoro, RT Social History [...] often do you attend chur ch or yarsani services? 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 Not on file Not on file documented as of this encounter Plan of Treatment Scheduled Procedures Name Priority Associated Diagnoses Date/Ti me TRANSPLANT LIVER Encounter for pre-transplant evaluation for liver transplant Alcoholic liver disease documented as of this encounter Visit Diagnoses Not on filedocumented in this encounter Care Teams Customer Project Manager Relationship Specialty Start Date End Date Dm Pena MD [address] [place], [place] [address] PCP - General 03/05/19 Hermelindo Avilez MD [address] [place], [place] [address] Referring Physician Nephrology 09/23/20 Milla Calero, RN [address] [place] [address] Bleach Analyst 09/10/24 Melecio Graves MD [address] [place] [address] Referring Physician Internal Medicine 09/10/24 Nupur Shea inbound customer service agentBleach Analyst 09/30/24 Salena Hobson, RN [address] [place] [address] Secondary Kidney Coordinator 10/27/24 01/20/25 documented as of this encounter
--- OUTSIDE RECORDS SUMMARY | 2025-06-23 10:49 | XMS_ITS ---
Author Organization [facility] [place] at the [facility] Office [facility] Address [address] [place] [address] Care Team Providers Care Triage Licensed Practical Nurse Name Role Phone Dm Pena MD Primary Care Provider + [phone] Hermelindo Avilez MD Unavailable [phone] Milla Calero RN Unavailable Melecio Graves MD Unavailable [phone] Nupur Shea RN Unavailable Unavailabl e Transplant Episode Liver Candidate [facility] ([place], [place]) - [facility] Evaluation began on 09/30/2024 Marked as Active on 09/30/2024 Reason: Evaluation - Standard Liver CoordinatorMilla Calero RN Fax: N/A Email: N/A [place] Organ Diagnosis Organ Primary Contributory Liver Alcoholic Cirrhosis Care Team Name Role Phone Fax Email Milla Calero RN Liver Coordinator [phone] N/A N/A Melecio Graves MD Referring Physician [phone] N/A Mckenzie Ibarra Primary Petal Cutter N/A N/A N/A Sena Luque Public Transportation Inspector [phone] N/A N/A Cyndi Maxwell RN Secondary Coordinator [phone] N/A Events Pre-Transplant Referred: 09/10/2024 Evaluation began: 09/30/2024 Appointments (05/24/2025 - 07/24/2025) When With Visit Type Description 06/17/2025 Transplant New Left without se en Dialysis History Dialysis History Start End Type Comments Center 03/14/2019 In-center Hemodialysis MWF 5:30AM-9A M [facility] Dialysis Center Information Center Phone Fax Address [facility] [phone] [address] [facility] [address]
--- OUTSIDE RECORDS SUMMARY | 2025-06-23 10:49 | XMS_ITS | Clinical Summary ---
Author Organization [facility] Address [address] [place] [address] Phone Care Team Providers Care Manufacturing Teacher Name Role Phone Unavailable Primary Care Provider [...]
--- OUTSIDE RECORDS SUMMARY | 2025-06-23 10:49 | XMS_ITS | Encounter Summary ---
Author Organization [facility] Health Address [address] [facility] [place] [address] Care Team Providers Care Other Sales Support Worker Name Role Phone Dm Pena MD Primary Care Provider Efren Ramirez DO Primary Care Provider Encounter Details Date Type Department Care Team (Late st Contact Info) Description 01/26/2019 Procedure visit [facility] [address] [place] [address] Levi Candelario, DO [address] [facility] [address] [place] [address] Anesthesia Record Procedure Summary Procedure [...] Assessment Author No 01/24/2019 2:51 AM CDT Ronda Mejia RN documented as of this encounter [...] Under Investigation 07/19/2021 07/19/2021 07/19/2021 1:09 PM GAME TRAPPER COVID-19 Confirmed 07/19/2021 07/19/2021 4:33 AM GAME TRAPPER COVID-19 Under Investigation 10/29/2023 10/29/2023 10/29/2023 9:28 AM CDT COVID-19 Under Investigation 09/22/2024 09/22/2024 09/22/2024 12:05 PM CDT documented as of this encounter Care Teams Other Sales Support Worker Relationship Specialty Start Date End Date Dm Pena MD [address] [phone] PCP - General Family Medicine 02/06/19 06/11/24 Efren Ramirez DO [address] [place] [address] PCP - General Internal Medicine 06/12/24 documented as of this encounter
--- OUTSIDE RECORDS SUMMARY | 2025-06-23 10:49 | XMS_ITS | Clinical Summary ---
Author Organization [facility] at the [facility] Address [address] [place] [address] Care Team Providers Care Knitter Machine Name Role Phone Dm Pena MD Primary Care Provider [phone] Hermelindo Avilez MD Unavailable [phone] Milla Calero RN Unavailable [phone] Melecio Graves MD Unavailable Nupur Shea RN [...] traZODone (DESYREL) 50 mg tablet 03/02/2021 Active furosemide (LASIX) 80 mg tablet by other route 05/30/2024 Active hydrALAZINE (APRESOLINE) 25 mg tablet by other route 03/23/2025 Active amLODIPine (NORVASC) 5 mg tablet Take 1 tablet (5 mg total) by mouth daily Active folic acid (FOLVITE) 1 mg tablet Take 1 tablet (1,000 mcg total) by mouth daily Active lactulose solution 10 gram/15mL Take 30 mL (20 g total) by mouth 3 (three) times a day 11/13/2023 Active levETIRAcetam (KEPPRA) 750 mg tablet Take 1 tablet (750 mg total) by mouth 03/16/2023 Active thiamine (VITAMIN B-1) 100 mg tablet Take 1 tablet (100 mg total) by mouth every morning 05/08/2025 Active Active Problems Problem Noted Date Diagnosed Date Encounter for pre-transplant evaluation for liver transplant 09/30/2024 End stage liver disease 09/22/2020 Alcoholic liver disease 06/30/2020 Alcohol dependence in remission 06/30/2020 Atrial flutter 06/30/2020 ESRD (end stage renal disease) 06/30/2020 MPGN (membranoproliferative glomerulonephritides ) 06/30/2020 Essential hypertension 06/30/2020 Male infertility, unspecified 01/19/2011 Encounters Date Type Department Care Team Description 06/17/2025 11:00 AM PRICING/SIGNAGE TEAM MEMBER Office Visit [facility] Gastroenterology [address] [facility] Advanced Medicine 12th [place] [address] [place] [address] Left without seen 06/17/2025 Telephone [facility] Transplant Liver [address] [facility] [address] Mail[address] [phone] [place] [address] Milla Calero RN 06/09/2025 Telephone [facility] Transplant Kidney [address] [facility] [address] [phone] [place] [address] Nupur Shea RN 06/09/2025 Telephone [facility] Transplant Kidney [address] [facility] [address] [phone] [place] [address] Salena Mcdowell 06/01/2025 Documentation [facility] Transplant Kidney [address] Mailstop [phone] [place] [address] Radha Willingham 05/27/2025 Telephone [facility] Transplant Kidney [address] [facility] [address] Mailstop [phone] [place] [address] YearNupur schroeder, DIVINE 05/27/2025 Telephone [facility] Transplant Kidney [address] [facility] [address] Mail[address] [id number] [place] [address] YearNupur schroeder, DIVINE 05/21/2025 Telephone [facility] Transplant Kidney [address] [facility] [address] Mailstop [phone] [place] [address] Nupur Shea RN 05/21/2025 Telephone [facility] Transplant Kidney [address] [facility] [address] Mailstop [phone] [place] [address] Shahida Avila 05/19/2025 Telephone [facility] Transplant Kidney [address] [facility] [address] [id number] [place] [address] Nupur Shea RN 05/19/2025 Telephone [facility] Transplant Kidney [address] [facility] [address] [id number] [place] [address] Salena Mcdowell 05/15/2025 Telephone [facility] Transplant Kidney [address] [facility] [address] Mail[address] [phone] [place] [address] YearNupur schroeder, RN 05/11/2025 Telephone [facility] Transplant Kidney [address] [facility] [address] Mailstop [phone] [place] [address] Nupur Shea, DIVINE 05/11/2025 Documentation [facility] Transplant Liver [address] [facility] [address] [id number] [place] [address] Mckenzie Ibarra 05/07/2025 Telephone [facility] Transplant Liver [address] [facility] [address] Mailstop [phone] [place] [address] Milla Calero, RN 05/07/2025 Telephone [facility] Transplant Liver [address] [facility] [address] Mailstop [phone] [place] [address] Mckenzie Ibarra 05/07/2025 Telephone [facility] Transplant Kidney [address] [facility] [address] Mailstop [phone] [place] [address] Nupur Shea, RN 05/07/2025 Telephone [facility] Transplant Kidney [address] [facility] [address] Mailstop [phone] [place] [address] Shahida Avila 04/23/2025 Telephone [facility] Transplant Liver [address] [facility] [address] Mailstop [phone] [place] [address] Hermelinda Choudhary 04/21/2025 Telephone [facility] Transplant Kidney [address] [facility] [address] Mailstop [phone] [place] [address] Nupur Shea, RN 04/21/2025 Telephone [facility] Transplant Liver [address] [facility] [address] Mailstop [phone] [place] [address] Milla Calero, RN from Last 3 Months [...] Date Smoking Tobacco: Never Smokeless Tobacco: Never Tobacco Cessation:Counseling Given: Not Answered Alcohol Use Standard Drinks/Week Comments Not Currently [...] often do you attend chur ch or mosque services? 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 Not on file Not on file Not on file Last Filed Vital Signs Vital Sign Reading Time Taken Comments Blood Pressure 123/65 06/17/2025 11:01 AM PRICING/SIGNAGE TEAM MEMBER Pulse 58 06/17/2025 11:01 AM PRICING/SIGNAGE TEAM MEMBER Temperature 37.1 C (98.7 F) 06/17/2025 11:01 AM PRICING/SIGNAGE TEAM MEMBER Respiratory Rate - - Oxygen Saturation 98% 06/17/2025 11:01 AM PRICING/SIGNAGE TEAM MEMBER Inhaled Oxygen Concentration - - Weight 71.2 kg (157 lb) 06/17/2025 11:01 AM PRICING/SIGNAGE TEAM MEMBER Height 177.8 cm (5' 10) 06/17/2025 11:01 AM PRICING/SIGNAGE TEAM MEMBER Body Mass Index 22.53 06/17/2025 11:01 AM PRICING/SIGNAGE TEAM MEMBER Plan of Treatment Scheduled Procedures Name Priority [...] 2025 06/13/2021, 09/16/2020 Influenza Vaccine (#1) 2025 , 05/31/2021, 04/06/2020, Additional history exists DTaP/Tdap/Td Vaccine (2 - Td or Tdap) 12/25/2027 12/24/2017 Hepatitis C Screening Completed 09/22/2020, 015 Pneumococcal vaccine <65 Completed 11/13/2023, 05/0 09/2021 Procedures Procedure Name Priority Date/Time Associated Diagnosis Comments HEPATITIS C ANTIBODY Routine 09/22/2020 12:51 PM CDT Alcoholic liver disease PSA SCREEN Routine 09/22/2020 12:51 PM CDT Alcoholic liver disease from Last 3 Months or Most Recently Relevant to Health Maintenance Results * PSA screen (09/22/2020 12:51 PM CDT) PSA-Total 0.76 <=3.90 ng/mL [facility] Comment: Interpretive Data AGE SEX [...] ORDERABLES F inal Result Performing Organization Address [facility] Co de Phone Number [facility] [place] [address] * Hepatitis C antibody (09/22/2020 12:51 PM CDT) Pathologist [facility] Hep C Ab Nonreactive Nonreactive [facility] Comment:Antibodies to HCV no t detected. Does NOT exclude the possibility of recent exposure to HCV. Blood specimen (specimen) 09/22/2020 12:51 PM CDT 09/22/2020 1:40 PM CDT Dean Echols MD LAB MICROBIOLOGY - GEN ERAL ORDERABLES Edited Result - Final Performing Organization Address [facility]/ZIP Co de Phone Number [facility] [place] [address] from Last 3 Months or Most Recently Relevant to Health Maintenance Insurance [place] [employer] MEDICARE MEDICARE [facility] MEDICARE SUPPLEMENT MEDICARE Care Teams Knitter Machine Relationship Specialty Start Date End Date Dm Pena MD [address] [place], [place] [address] PCP - General 03/05/19 Hermelindo Avilez MD [address] [place], [place] [address] Referring Physician Nephrology 09/23/20 Milla Calero, RN [address] [facility] [address] [place] [address] Supervisor Rework 09/10/24 Melecio Graves MD [facility] [place] [address] Referring Physician Internal Medicine 09/10/24 Yearout, Nupur Santana, gaming cashierSupervisor Rework 09/30/24
--- OUTSIDE RECORDS SUMMARY | 2025-06-23 10:49 | XMS_ITS | Clinical Summary ---
Author Organization [facility] Address [address] [place] [address] Care Team Providers Care Bottom Presser Name Role Phone Shiraryan Efren Staley Primary Care Provider Social History Tobacco Use Types Packs/Day Years Used Date Smoking Tobacco: Never Assessed Sex and Gender Information Value Date Recorded Sex Assigned at Not on file Legal Sex Male 12:06 PM STOREROOM SUPERVISOR Gender Identity Not on file Sexual Orientation Not on file Plan of Treatment Upcoming Encounters Date Type Department Care Team (Late st Contact Info) Description 06/29/2025 1:30 PM STOREROOM SUPERVISOR Office Visit [facility] Oncology and Hematology - [place] [address] [place] [address] Vinod Henriquez MD [address] [place] [address] Health Maintenance Due Date Last Done Comments [...] 2025 Insurance MEDICARE PART A AND B [facility] BLUE PREFERRED [facility] SUPP Care Teams Bottom Presser Relationship Specialty Start Date End Date Efren Ramirez DO [address] [address] PCP - General Internal Medicine 06/08/25
== END 2025-06-23 10:14 | disposition home or self-care (01) ==
PROVIDERS: PCP Internal Medicine; Visit Provider Internal Medicine Nephrology
DX: K70.30 Alcoholic cirrhosis of liver without ascites (principal)
CPT/HCPCS: 36415; 82140

== ENCOUNTER 2025-06-26 15:05 | Inpatient (IN) | payer MEDICARE, SELFPAY ==
--- NOTE | ~2025-06-26 | CT_ITS ---
EXAMINATION: CT brain wo con DATE: 06/28/2025 16:27 INDICATION: Confusion. TECHNIQUE: Computed tomography (CT) of the head was performed without intravenous contrast. The mA was adjusted according to patient size. Iterative reconstruction technique was employed. The dose-length product was 756.67 mGy-cm. COMPARISON: CT head without contrast dated 06/26/2025. FINDINGS: No acute intracranial bleed. No extra-axial collections. Age- appropriate cerebral cortical atrophy. No ventriculomegaly or midline shift. IMPRESSION: 1. No acute findings in the noncontrast CT head. No significant change from previous CT examination. Reviewed, dictated and finalized at location T. E MIDWIFE IMPRESSION: 1. No acute findings in the noncontrast CT head. No significant change from pre vious CT examination.
--- NOTE | ~2025-06-26 | XR_ITS ---
EXAMINATION: XR chest 1V 06/26/2025 17:36 INDICATION: Weakness PROCEDURE: AP view of the chest COMPARISON: Comparison to multiple prior studies sequentially, with oldest reviewed study dated 05/22/2025. FINDINGS: The lungs are clear. The cardiomediastinal silhouette is within normal limits. There are no pleural effusions. There is no pneumothorax suspected. IMPRESSION: 1: NO ACUTE CARDIOPULMONARY DISEASE. Reviewed, dictated and finalized at location O. NALYST
--- NOTE | ~2025-06-26 | XR_ITS ---
EXAMINATION: XR chest 1V portable DATE: 06/28/2025 15:19 INDICATION: Confusion. Possible aspiration. TECHNIQUE: A single frontal view of the chest was obtained. COMPARISON: Chest x-ray dated 06/26/2025 FINDINGS: Heart size is unchanged. Atherosclerotic aorta. Nasogastric tube noted in the esophagus. No definite acute pulmonary findings. Evaluation limited due to skin fold artifact over the chest wall on the right side. IMPRESSION: 1. Limited evaluation due to artifact. No definite acute pulmonary findings. Atherosclerotic aorta. Reviewed, dictated and finalized at location T. INALIST TECHNICIAN IMPRESSION: 1. Limited evaluation due to artifact. No definite acute pulmonary findings. At herosclerotic aorta.
--- NOTE | ~2025-06-26 | XR_ITS ---
EXAMINATION: Portable AP upright upper abdomen and lower chest: DATE: 06/28/2025 INDICATION: Nasogastric tube placement. TECHNIQUE: AP portable upright view of lower chest and upper abdomen. were obtained. COMPARISON: Chest x-ray of same date. FINDINGS: Tip of the nasogastric tube is noted within the stomach. No soft tissue abnormalities in the upper abdomen. IMPRESSION: 1. Satisfactory positioning of nasogastric tube within the stomach. Reviewed, dictated and finalized at location T. NISTRATIVE ASST
--- NOTE | ~2025-06-26 | CT_ITS ---
EXAMINATION: CT BRAIN W/O DATE: 06/26/2025 17:23 INDICATION: Altered mental status TECHNIQUE: Computed tomography (CT) of the head was performed without intravenous contrast. The dose-length product was 605.33 mGy-cm. Automated exposure control and iterative reconstruction technique were employed. COMPARISON: 05/22/2025 FINDINGS: Normal brain parenchymal volume for age. Normal grace-white differentiation. No acute intracranial hemorrhage, infarction, mass or mass effect. There are scattered mild periventricular and subcortical white matter changes, most likely related to small vessel ischemic disease (microangiopathy). No ventriculomegaly or midline shift. Midline sagittal images demonstrate a normal corpus callosum, craniovertebral junction and sella turcica. Basilar cisterns are patent. Paranasal sinuses and mastoids are pneumatized. No depressed skull fractures. IMPRESSION: 1. No acute intracranial abnormality. Reviewed, dictated and finalized at location O. AURANT SERVICE MANAGER
--- NOTE | ~2025-06-26 | CT_ITS ---
EXAMINATION: CT chest abdomen pelvis wo con DATE: 06/26/2025 19:56 BUSINESS UNIT MANAGER INDICATION: Abdomen pain and confusion. TECHNIQUE: Computed tomography (CT) of the chest, abdomen, and pelvis was performed without intravenous contrast. The dose-length product was 662.98 mGy- cm. Automated exposure control and iterative reconstruction technique were employed. COMPARISON: CT dated 05/22/2025 FINDINGS: CHEST CT: There is dependent atelectasis. No thoracic lymphadenopathy. Borderline heart size. No significant pleural or pericardial effusion. No focal airspace consolidation. No endobronchial lesions. No pneumothorax. No suspicious pulmonary nodules or masses. ABDOMEN/PELVIS CT: There is cirrhosis of the liver. Trace ascites. Splenomegaly. Markedly enlarged splenorenal collateral vessels consistent with portal venous hypertension. Atrophic kidneys with nonobstructing bilateral renal stones. No hydronephrosis. Nonobstructive bowel gas pattern. There are gallstones. IMPRESSION: 1. No acute cardiopulmonary disease. 2: Cardiomegaly. 3: Cirrhosis of the liver with splenomegaly and markedly enlarged prostate gland or renal collaterals, consistent with portal venous hypertension. 4.: Trace ascites. 5: Nonobstructing bilateral nephrolithiasis. 6: Cholelithiasis. Reviewed, dictated and finalized at location O. NESS UNIT MANAGER IMPRESSION: 1. No acute cardiopulmonary disease. 2: Cardiomegaly. 3: Cirrhosis of the liver with splenomegaly and markedly enlarged prostate gla nd or renal collaterals, consistent with portal venous hypertension. 4.: Trace ascites. 5: Nonobstructing bilateral nephrolithiasis. 6: Cholelithiasis.
[2025-06-26 15:17] VITALS: BP 149/60; PULSE 55; RESP 16; TEMP 36.8; O2SAT 99
--- NOTE | 2025-06-26 17:06 | ECG_ITS ---
Test Date: 2025-06-26 17:43:43 Measurements Intervals [place] Rate: 53 P: 60 SD: 259 QRS: 53 QRSD: 97 T: 65 QT: 519 QTc: 491 Interpretive Statements SINUS BRADYCARDIA WITH FIRST DEGREE AV BLOCK INCOMPLETE RIGHT BUNDLE BRANCH BLOCK MINIMAL Q WAVES- DIFFUSE LEADS BORDERLINE ST-T WAVE ABNORMALITY- DIFFUSE LEADS BASELINE ARTIFACT- V3-V6 BORDERLINE ECG Compared to ECG 05/22/2025 12:36:48 HEART RATE HAS DECREASED PROLONGED QT INTERVAL NO LONGER PRESENT Electronically Signed On 06-26-2025 19:57:49 INTERNAL SALES by Refugio Cano D.O.
--- NOTE | 2025-06-26 18:05 | ED.AMS ---
HPI - Altered Mental Status General Chief Complaint: Altered Mental Status <Minerva Hernandez PA-C - Last Filed: 06/26/25 22:01> Stated Complaint: AMS <SOSA Lerner Last Filed: 06/26/25 22:01> Time Seen by Provider: 06/26/25 17:06 <Minerva Hernandez PA-C - Last Filed: 06/26/25 22:01> Source: patient <SOSA Lerner Last Filed: 06/26/25 22:01> Mode of arrival: ambulatory <SOSA Lerner Last Filed: 06/26/25 22:01> Limitations: altered mental status <SOSA Lerner Last Filed: 06/26/25 22:01> History of Present Illness HPI narrative: This is a 59 year old male that presents to the ER for confusion. Reports he has had some nausea and abdominal pain. Denies fever, chest pain, vomiting, diarrhea. <Minerva Hernandez PA-C - Last Filed: 06/26/25 22:01> Related Data Home Medications: Home Medications ?Medication ?Instructions ?Recorded ?Confirmed ?Last Taken ?Type sevelamer carbonate 800 mg tablet 800 mg PO .COMPLEX 10/13/24 06/26/25 06/26/25 History omeprazole 40 mg capsule,delayed 40 mg PO DAILY 05/02/25 06/26/25 06/26/25 History release melatonin 3 mg tablet 9 mg PO HS Sleep 06/16/25 06/26/25 06/25/25 History lactulose 10 gram/15 mL oral 60 g PO TID 06/26/25 06/26/25 06/26/25 History solution <SOSA Lerner Last Filed: 06/26/25 22:01> Allergies/Adverse Reactions: Allergies Allergy/AdvReac Type Severity Reaction Status Date / Time No Known Allergies Allergy Unknown Verified 06/26/25 22:22 <SOSA Lerner Last Filed: 06/26/25 22:01> Review of Systems Review of Systems: ROS unobtainable: Yes unobtainable due to mental status <SOSA Lerner Last Filed: 06/26/25 22:01> [facility] Past Medical History Medical History: Medical History (Updated 06/28/25 @ 18:56 by Ute Carnes APRN) Seizure disorder ESRD on hemodialysis End stage renal disease Cirrhosis Right knee injury Acute hyperkalemia Mitral insufficiency and aortic stenosis Esophageal varices in alcoholic cirrhosis Facial hematoma Pancytopenia Seizure Cirrhosis, alcoholic Acute respiratory failure Cirrhosis Renal osteodystrophy Erythropoietin deficiency anemia Thrombocytopenia Coagulopathy Encephalopathy, hepatic Alcoholic liver failure ESRD needing dialysis m-w-f <Minerva Hernandez PA-C - Last Filed: 06/26/25 22:01> Surgical History Surgical History: Surgical History H/O arthroscopic knee surgery Bilateral knees H/O right knee surgery Hx of hernia repair H/O cataract removal with insertion of prosthetic lens History of vasectomy Status post biopsy of kidney <Minerva Hernandez PA-C - Last Filed: 06/26/25 22:01> Family History Family History: Family History Father Colon cancer Dementia Diabetes mellitus Mother Aneurysm <Minerva Hernandez PA-C - Last Filed: 06/26/25 22:01> Social History Social History: Social History (Updated 06/26/25 @ 23:08 by Verenice García APRN) Social History: The patient is single. 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 He has a daughter Deloris who lives in [place] who is listed as his emergency contact. He lives alone in a [facility]. Code status: Full code Smoking packs per day: 2.5 Smoking cigarettes per day: 50.0 Years smoked: 43 Smoking pack-years: 107.50 Smoking status: Unknown if ever smoked Tobacco type: cigarettes Alcohol intake: former Alcohol use details: none since04/11/21 Substance use: never Substance use type: marijuana Other substance usage details: gummies Last use: last use of ETOH 5 yrs ago. gummies used today 06/26/25. Lack of Transportation: No Lack of Food: Never True Current Housing: I Have Housing Concerned About Future Housing: No Difficulty Paying Gas/Electric Bills: No Difficulty Paying for Meds: No Currently Unemployed: No Education: Master's Degree or Higher Difficulty w/ Childcare or Family Care: No Spiritual care concerns: No <Minerva Hernandez PA-C - Last Filed: 06/26/25 22:01> Exam Narrative: GENERAL: Chronically ill-appearing, well-nourished, and in no acute distress. HEAD: Normocephalic, atraumatic. EYES: PERRLA and EOMI. ENT: Nares clear, no rhinorrhea or epistaxis. Mucous membranes moist. Oropharynx without tonsillar hypertrophy exudate or other lesions. NECK: Supple. No adenopathy or masses. CHEST: Clear to auscultation. No respiratory distress. No wheezes rales or rhonchi HEART: Regular rate and rhythm. No murmur heard. Normal peripheral pulses. ABDOMEN: Soft, nontender, nondistended, normal active bowel sounds. EXTREMITIES: Normal range of motion. No edema. SKIN: Warm, dry, no rash. NEURO: No focal deficits. Alert and oriented x3. PSYCH: Normal mood and affect <Minerva Hernandez PA-C - Last Filed: 06/26/25 22:01> Course DRILLING ASSISTANT/PA Physician Supervision This visit was performed by both a physician and an Advanced Practice Provider. I performed all aspects of the Medical Decision Making as documented. <Wilmer Chowdhury DO - Last Filed: 07/02/25 19:02> Consultations Gastroenterology: I have discussed the care of this patient with the following provider: Dr. Benton <Minerva Hernandez PA-C - Last Filed: 06/26/25 22:01> Nephrology: I have discussed the care of this patient with the following provider: Dr. Dill <Minerva Hernandez PA-C - Last Filed: 06/26/25 22:01> Vital Signs Vital signs: Vital Signs Temperature 98.2 F 06/26/25 15:17 Pulse Rate 55 L 06/26/25 15:17 Respiratory Rate 16 06/26/25 15:17 Blood Pressure 149/60 H 06/26/25 15:17 Pulse Oximetry 99 06/26/25 15:17 Oxygen Delivery Room Air 06/26/25 15:17 Temperature 100.6 F H 06/28/25 18:39 Pulse Rate 70 12/28/25 18:48 Respiratory Rate 22 H 06/28/25 18:33 Blood Pressure 162/64 H 06/28/25 18:33 Pulse Oximetry 99 06/28/25 18:33 Oxygen Delivery Room Air 06/28/25 08:00 <Minerva Hernandez PA-C - Last Filed: 06/26/25 22:01> Vital Signs Temperature 98.2 F 06/26/25 15:17 Pulse Rate 55 L 06/26/25 15:17 Respiratory Rate 16 06/26/25 15:17 Blood Pressure 149/60 H 06/26/25 15:17 Pulse Oximetry 99 06/26/25 15:17 Oxygen Delivery Room Air 06/26/25 15:17 Temperature 100.6 F H 06/28/25 18:39 Pulse Rate 70 06/28/25 18:48 Respiratory Rate 22 H 06/28/25 18:33 Blood Pressure 162/64 H 06/28/25 18:33 Pulse Oximetry 99 06/28/25 18:33 Oxygen Delivery Room Air 06/28/25 08:00 <Wilmer Chowdhury DO - Last Filed: 07/02/25 19:02> [facility] MDM Narrative Medical decision making narrative: Patient presents the emergency department for increased confusion. History of ESRD, cirrhosis. He is afebrile and nontoxic appearing. His vitals are stable. CBC with hemoglobin and platelets that appears stable. Metabolic panel with evidence of patient's end-stage renal disease. Potassium is not elevated. Influenza, RSV and COVID screens are negative. CT chest/abdomen/pelvis without acute cardiopulmonary abnormality. Trace ascites. Cirrhosis of the liver. Patient updated on workup and recommendation for admission. Will be admitted to the hospitalist service for further management. GI and Nephrology are consulted <Minerva Hernandez PA-C - Last Filed: 06/26/25 22:01> Differential Diagnosis Differential Diagnosis: Hepatic encephalopathy, pneumonia, electrolyte derangement, intracranial hemorrhage <Minevra Hernandez PA-C - Last Filed: 06/26/25 22:01> Medical Records I have reviewed the following patient records and this information was taken into consideration when formulating the assessment and plan.: previous ER visits and previous hospitalizations <Minerva Hernandez PA-C - Last Filed: 06/26/25 22:01> Lab Data [facility] Lab Attestation statement: I personally reviewed the patient's lab results. <Minerva Hernandez PA-C - Last Filed: 06/26/25 22:01> Result diagrams: 06/28/25 14:37 06/28/25 14:37 <Minerva Hernandez PA-C - Last Filed: 06/26/25 22:01> Labs: Lab Results 06/26/25 06/26/25 06/26/25 Range/Units 17:15 17:58 23:27 WBC 3.9 L (4.5-10.0) K/mm3 RBC 2.93 L (4.6-6.20) M/mm3 Hgb 9.8 L (14.0-18.0) g/dL Hct 29.3 L (42.0-52.0) % MCV 100.0 (80-100) fl MCH 33.4 (26-34) pg MCHC 33.4 (32-36) g/dl RDW 14.8 H (11.5-14.5) % Plt Count 27 L (150-375) k/mm3 MPV 10.8 H (7.4-10.4) fl Immature Gran % (Auto) 0.5 (0-0.5) % Neut % (Auto) 66.5 (45.5-73.1) % Lymph % (Auto) 20.4 (18.3-44.2) % Republic % (Auto) 8.2 (2.6-8.5) % Eos % (Auto) 3.9 (0-4.4) % Baso % (Auto) 0.5 (0.2-1.2) % Lymph # (Auto) 0.79 L (0.9-3.2) K/mm3 Republic # (Auto) 0.3 (0.1-0.6) K/mm3 Eos # (Auto) 0.2 (0-0.3) K/mm3 Baso # (Auto) 0.0 (0.0-0.1) K/mm3 Abs Immat Gran (auto) 0.02 (0.00-0.031) K/mm3 Absolute Neuts (auto) 2.6 (1.3-6.7) K/mm3 Absolute Nucleated RBC 0.000 (0.0-0.012) K/mm3 Nucleated RBC % 0.0 (0.0-0.2) % % Immature Plt Fraction 3.6 (0.9-11.2) % PT 17.9 H (11.1-14.7) Seconds INR 1.5 APTT 38.2 H (22.3-36.8) Seconds Sodium 134 L (137-145) mmol/L Potassium 4.4 (3.4-5.0) mmol/L Chloride 99 (98-107) mmol/L Carbon Dioxide 28 (22-30) mmol/L Anion Gap 7 (4-12) mmol/L BUN 42 H (9-20) mg/dL Creatinine 5.74 H (0.7-1.3) mg/dL Estim Creat Clear Calc 12 ml/min Estimated GFR 10 L (59 - ) Glucose 113 H (65-110) mg/dL POC Capillary Glucose 123 H (65-105) mg/dl Calcium 8.1 L (8.4-10.2) mg/dL Phosphorus (2.5-4.5) mg/dL Total Bilirubin 2.0 H (0.2-1.3) mg/dL AST 31 (17-59) U/L ALT 17 (6-50) U/L Alkaline Phosphatase 167 H (38-126) U/L Ammonia 41 H (9-30) umol/L Total Protein 6.9 (6.3-8.2) g/dL Albumin 3.7 (3.5-5.1) g/dL Nasal MRSA (PCR) Not detected (NOT DETECTE) Influenza A (RT-PCR) Negative (Negative) Influenza B (RT-PCR) Negative (Negative) RSV (RT-PCR) Negative (Negative) SARS-CoV-2 RNA (RT-PCR) Negative (Negative) 06/27/25 06/28/25 Range/Units 04:19 04:23 WBC 2.3 L 3.3 L (4.5-10.0) K/mm3 RBC 2.54 L 2.77 L (4.6-6.20) M/mm3 Hgb 8.4 L 9.2 L (14.0-18.0) g/dL Hct 25.4 L 27.8 L (42.0-52.0) % MCV 100.0 100.4 H (80-100) fl MCH 33.1 33.2 (26-34) pg MCHC 33.1 33.1 (32-36) g/dl RDW 14.6 H 14.4 (11.5-14.5) % Plt Count 20 L* 19 L* (150-375) k/mm3 MPV 12.2 H 12.2 H (7.4-10.4) fl Immature Gran % (Auto) (0-0.5) % Neut % (Auto) (45.5-73.1) % Lymph % (Auto) (18.3-44.2) % Republic % (Auto) (2.6-8.5) % Eos % (Auto) (0-4.4) % Baso % (Auto) (0.2-1.2) % Lymph # (Auto) (0.9-3.2) K/mm3 Republic # (Auto) (0.1-0.6) K/mm3 Eos # (Auto) (0-0.3) K/mm3 Baso # (Auto) (0.0-0.1) K/mm3 Abs Immat Gran (auto) (0.00-0.031) K/mm3 Absolute Neuts (auto) (1.3-6.7) K/mm3 Absolute Nucleated RBC (0.0-0.012) K/mm3 Nucleated RBC % (0.0-0.2) % % Immature Plt Fraction 3.8 (0.9-11.2) % PT (11.1-14.7) Seconds INR APTT (22.3-36.8) Seconds Sodium 138 136 L (137-145) mmol/L Potassium 4.3 5.3 H (3.4-5.0) mmol/L Chloride 102 101 (98-107) mmol/L Carbon Dioxide 27 27 (22-30) mmol/L Anion Gap 9 8 (4-12) mmol/L BUN 49 H 67 H D (9-20) mg/dL Creatinine 6.60 H 8.59 H (0.7-1.3) mg/dL Estim Creat Clear Calc 11 8 ml/min Estimated GFR 9 L 6 L (59 - ) Glucose 122 H 119 H (65-110) mg/dL POC Capillary Glucose (65-105) mg/dl Calcium 7.9 L 8.3 L (8.4-10.2) mg/dL Phosphorus 4.9 H (2.5-4.5) mg/dL Total Bilirubin (0.2-1.3) mg/dL AST (17-59) U/L ALT (6-50) U/L Alkaline Phosphatase (38-126) U/L Ammonia 90 H 187 H (9-30) umol/L Total Protein (6.3-8.2) g/dL Albumin 3.4 L (3.5-5.1) g/dL Nasal MRSA (PCR) (NOT DETECTE) Influenza A (RT-PCR) (Negative) Influenza B (RT-PCR) (Negative) RSV (RT-PCR) (Negative) SARS-CoV-2 RNA (RT-PCR) (Negative) <Minerva Hernandez PA-C - Last Filed: 06/26/25 22:01> Lab Results 06/26/25 06/26/25 06/26/25 Range/Units 17:15 17:58 23:27 WBC 3.9 L (4.5-10.0) K/mm3 RBC 2.93 L (4.6-6.20) M/mm3 Hgb 9.8 L (14.0-18.0) g/dL Hct 29.3 L (42.0-52.0) % MCV 100.0 (80-100) fl MCH 33.4 (26-34) pg MCHC 33.4 (32-36) g/dl RDW 14.8 H (11.5-14.5) % Plt Count 27 L (150-375) k/mm3 MPV 10.8 H (7.4-10.4) fl Immature Gran % (Auto) 0.5 (0-0.5) % Neut % (Auto) 66.5 (45.5-73.1) % Lymph % (Auto) 20.4 (18.3-44.2) % Republic % (Auto) 8.2 (2.6-8.5) % Eos % (Auto) 3.9 (0-4.4) % Baso % (Auto) 0.5 (0.2-1.2) % Lymph # (Auto) 0.79 L (0.9-3.2) K/mm3 Republic # (Auto) 0.3 (0.1-0.6) K/mm3 Eos # (Auto) 0.2 (0-0.3) K/mm3 Baso # (Auto) 0.0 (0.0-0.1) K/mm3 Abs Immat Gran (auto) 0.02 (0.00-0.031) K/mm3 Absolute Neuts (auto) 2.6 (1.3-6.7) K/mm3 Absolute Nucleated RBC 0.000 (0.0-0.012) K/mm3 Nucleated RBC % 0.0 (0.0-0.2) % % Immature Plt Fraction 3.6 (0.9-11.2) % PT 17.9 H (11.1-14.7) Seconds INR 1.5 APTT 38.2 H (22.3-36.8) Seconds Sodium 134 L (137-145) mmol/L Potassium 4.4 (3.4-5.0) mmol/L Chloride 99 (98-107) mmol/L Carbon Dioxide 28 (22-30) mmol/L Anion Gap 7 (4-12) mmol/L BUN 42 H (9-20) mg/dL Creatinine 5.74 H (0.7-1.3) mg/dL Estim Creat Clear Calc 12 ml/min Estimated GFR 10 L (59 - ) Glucose 113 H (65-110) mg/dL POC Capillary Glucose 123 H (65-105) mg/dl Calcium 8.1 L (8.4-10.2) mg/dL Phosphorus (2.5-4.5) mg/dL Total Bilirubin 2.0 H (0.2-1.3) mg/dL AST 31 (17-59) U/L ALT 17 (6-50) U/L Alkaline Phosphatase 167 H (38-126) U/L Ammonia 41 H (9-30) umol/L Total Protein 6.9 (6.3-8.2) g/dL Albumin 3.7 (3.5-5.1) g/dL Nasal MRSA (PCR) Not detected (NOT DETECTE) Influenza A (RT-PCR) Negative (Negative) Influenza B (RT-PCR) Negative (Negative) RSV (RT-PCR) Negative (Negative) SARS-CoV-2 RNA (RT-PCR) Negative (Negative) 06/27/25 06/28/25 Range/Units 04:19 04:23 WBC 2.3 L 3.3 L (4.5-10.0) K/mm3 RBC 2.54 L 2.77 L (4.6-6.20) M/mm3 Hgb 8.4 L 9.2 L (14.0-18.0) g/dL Hct 25.4 L 27.8 L (42.0-52.0) % MCV 100.0 100.4 H (80-100) fl MCH 33.1 33.2 (26-34) pg MCHC 33.1 33.1 (32-36) g/dl RDW 14.6 H 14.4 (11.5-14.5) % Plt Count 20 L* 19 L* (150-375) k/mm3 MPV 12.2 H 12.2 H (7.4-10.4) fl Immature Gran % (Auto) (0-0.5) % Neut % (Auto) (45.5-73.1) % Lymph % (Auto) (18.3-44.2) % Republic % (Auto) (2.6-8.5) % Eos % (Auto) (0-4.4) % Baso % (Auto) (0.2-1.2) % Lymph # (Auto) (0.9-3.2) K/mm3 Republic # (Auto) (0.1-0.6) K/mm3 Eos # (Auto) (0-0.3) K/mm3 Baso # (Auto) (0.0-0.1) K/mm3 Abs Immat Gran (auto) (0.00-0.031) K/mm3 Absolute Neuts (auto) (1.3-6.7) K/mm3 Absolute Nucleated RBC (0.0-0.012) K/mm3 Nucleated RBC % (0.0-0.2) % % Immature Plt Fraction 3.8 (0.9-11.2) % PT (11.1-14.7) Seconds INR APTT (22.3-36.8) Seconds Sodium 138 136 L (137-145) mmol/L Potassium 4.3 5.3 H (3.4-5.0) mmol/L Chloride 102 101 (98-107) mmol/L Carbon Dioxide 27 27 (22-30) mmol/L Anion Gap 9 8 (4-12) mmol/L BUN 49 H 67 H D (9-20) mg/dL Creatinine 6.60 H 8.59 H (0.7-1.3) mg/dL Estim Creat Clear Calc 11 8 ml/min Estimated GFR 9 L 6 L (59 - ) Glucose 122 H 119 H (65-110) mg/dL POC Capillary Glucose (65-105) mg/dl Calcium 7.9 L 8.3 L (8.4-10.2) mg/dL Phosphorus 4.9 H (2.5-4.5) mg/dL Total Bilirubin (0.2-1.3) mg/dL AST (17-59) U/L ALT (6-50) U/L Alkaline Phosphatase (38-126) U/L Ammonia 90 H 187 H (9-30) umol/L Total Protein (6.3-8.2) g/dL Albumin 3.4 L (3.5-5.1) g/dL Nasal MRSA (PCR) (NOT DETECTE) Influenza A (RT-PCR) (Negative) Influenza B (RT-PCR) (Negative) RSV (RT-PCR) (Negative) SARS-CoV-2 RNA (RT-PCR) (Negative) <Wilmer Chowdhury DO - Last Filed: 07/02/25 19:02> Imaging Data Radiologist's impression: ITS Impressions Chest/Abdomen/Pelvis CT 06/26/25 19:55 IMPRESSION: 1. No acute cardiopulmonary disease. 2: Cardiomegaly. 3: Cirrhosis of the liver with splenomegaly and markedly enlarged prostate gland or renal collaterals, consistent with portal venous hypertension. 4.: Trace ascites. 5: Nonobstructing bilateral nephrolithiasis. 6: Cholelithiasis. Chest X-Ray 06/28/25 15:23 IMPRESSION: 1. Limited evaluation due to artifact. No definite acute pulmonary findings. Atherosclerotic aorta. Abdomen X-Ray 06/28/25 15:24 IMPRESSION: 1. Satisfactory positioning of nasogastric tube within the stomach. Head CT 06/28/25 16:30 IMPRESSION: 1. No acute findings in the noncontrast CT head. No significant change from previous CT examination. <Minerva Hernandez PA-C - Last Filed: 06/26/25 22:01> ITS Impressions Chest/Abdomen/Pelvis CT 06/26/25 19:55 IMPRESSION: 1. No acute cardiopulmonary disease. 2: Cardiomegaly. 3: Cirrhosis of the liver with splenomegaly and markedly enlarged prostate gland or renal collaterals, consistent with portal venous hypertension. 4.: Trace ascites. 5: Nonobstructing bilateral nephrolithiasis. 6: Cholelithiasis. Chest X-Ray 06/28/25 15:23 IMPRESSION: 1. Limited evaluation due to artifact. No definite acute pulmonary findings. Atherosclerotic aorta. Abdomen X-Ray 06/28/25 15:24 IMPRESSION: 1. Satisfactory positioning of nasogastric tube within the stomach. Head CT 06/28/25 16:30 IMPRESSION: 1. No acute findings in the noncontrast CT head. No significant change from previous CT examination. <Wilmer Chowdhury DO - Last Filed: 07/02/25 19:02> ECG Data EKG #1: ECG completion date: 06/26/25 <Minerva Hernandez PA-C - Last Filed: 06/26/25 22:01> bradycardia, sinus rhythm, no ST changes and prolonged QT <Minerva Hernandez PA-C - Last Filed: 06/26/25 22:01> Critical Care Time Critical Care Time Critical Care Time: No <Minerva Hernandez PA-C - Last Filed: 06/26/25 22:01> Discharge Plan Discharge Clinical Impression: Acute hepatic encephalopathy, ESRD on hemodialysis, Thrombocytopenia Cirrhosis Qualifiers: Hepatic cirrhosis type: alcoholic cirrhosis Ascites presence: without ascites Qualified Code(s): K70.30 - Alcoholic cirrhosis of liver without ascites <Minerva Hernandez PA-C - Last Filed: 06/26/25 22:01> Patient Disposition: Still a Patient <SOSA Lerner Last Filed: 06/26/25 22:01> Condition: Stable <SOSA Lerner Last Filed: 06/26/25 22:01>
[2025-06-26 18:17] LABS: Hematocrit 29.3 % (42.0-52.0); Hemoglobin 9.8 g/dL (14.0-18.0); Immature Granulocyte Percent A 0.5 % (0-0.5); Immature Platelet Fraction Pct 3.6 % (0.9-11.2); Lymphocytes Absolute Auto 0.79 K/mm3 (0.9-3.2); Mean Corpuscular HGB Conc 33.4 g/dl (32-36); Mean Corpuscular Hemoglobin 33.4 pg (26-34); Mean Corpuscular Volume 100.0 fl (80-100); Nucleated Red Blood Cells Absolute Auto 0.000 K/mm3 (0.0-0.012); Nucleated Red Blood Cells Perc 0.0 % (0.0-0.2); Platelet Count Result 27 k/mm3 (150-375); Red Blood Count 2.93 M/mm3 (4.6-6.20); White Blood Count 3.9 K/mm3 (4.5-10.0)
[2025-06-26 18:18] VITALS: BP 159/61; PULSE 56; RESP 13; O2SAT 95
[2025-06-26 18:21] LABS: Alanine Aminotransferase 17 U/L (6-50); Albumin Level 3.7 g/dL (3.5-5.1); Alkaline Phosphatase 167 U/L (38-126); Ammonia 41 umol/L (9-30); Anion Gap 7 mmol/L (4-12); Aspartate Amino Transferase 31 U/L (17-59); Bilirubin,Total 2.0 mg/dL (0.2-1.3); Blood Urea Nitrogen 42 mg/dL (9-20); Calcium 8.1 mg/dL (8.4-10.2); Carbon Dioxide 28 mmol/L (22-30); Chloride 99 mmol/L (98-107); Estimated CRCL calculation 12 ml/min; Estimated Glomerular Filt Rate 10; Glucose 113 mg/dL (65-110); Potassium 4.4 mmol/L (3.4-5.0); Sodium 134 mmol/L (137-145); Total Protein 6.9 g/dL (6.3-8.2)
[2025-06-26] MEDS: FAMOTIDINE 20 MG/2 ML VIAL IV PUSH (18:23)
[2025-06-26 18:42] LABS: INR 1.5; Prothrombin Time 17.9 Seconds (11.1-14.7)
[2025-06-26 18:43] LABS: Partial Thromboplastin Time 38.2 Seconds (22.3-36.8)
[2025-06-26 18:53] LABS: Influenza A QL RT-PCR Negative (Negative); Influenza B QL RT-PCR Negative (Negative); RSV RNA, RT-PCR Negative (Negative); SARS-CoV-2 RNA PCR Negative (Negative)
[2025-06-26] MEDS: LORazepam INJ (*CRX) 2 MG/ML VIAL 0.5 MG IV PUSH (19:40)
--- NOTE | 2025-06-26 19:50 | P.HP_ITS ---
H&P: HPI History of Present Illness Date/Time: 06/26/25 19:50 Chief Complaint: Altered mental status Narrative: This is a 59-year-old male patient who has a history of cirrhosis of the liver and end-stage renal disease on dialysis Sunday. His friend is at the bedside offering a history. His friend to come to dialysis today. The patient received his usual dialysis today and when hemodialysis was complete,the patient became confused. 911 was called from dialysis today. The patient came to ER via the ambulance. His white count is 3.9. His H&H is 9.8 and 29.3. BUN 42 creatinine 5.74. Estimated GFR is 10. Point of care glucose 123. Calcium is low at 8.1. Ammonia level 41. He was negative for influenza a and B as well as RSV and COVID. Head CT no acute intracranial abnormality read by radiologist. Chest x-ray read by radiologist no acute cardiopulmonary disease. Chest abdomen pelvis CT was read as a following IMPRESSION: 1. No acute cardiopulmonary disease. 2: Cardiomegaly. 3: Cirrhosis of the liver with splenomegaly and markedly enlarged prostate gland or renal collaterals, consistent with portal venous hypertension. 4.: Trace ascites. 5: Nonobstructing bilateral nephrolithiasis. 6: Cholelithiasis. The patient was given Pepcid, Ativan and lactulose in the emergency room. Nephrology GI has been consulted. The patient is being admitted to observation status on the date of service of 06/26/2025. Review of Systems Constitutional: Constitutional: Reports as per HPI and Reports no additional constitutional complaints Eyes: Eyes: Reports as per HPI and Reports no additional eye complaints ENT: Reports no additional ear, nose, mouth, and throat complaints and Reports Normal hearing present Cardiovascular: Cardiovascular: Reports no additional cardiovascular complaints Respiratory: Respiratory: Reports as per HPI and Reports no additional respiratory complaints Gastrointestinal: Gastrointestinal: Reports as per HPI and Reports no additional gastrointestinal complaints Musculoskeletal: Musculoskeletal: Reports no additional musculoskeletal complaints Integumentary/Breasts: Skin/Breast: Reports system reviewed and no additional complaints, except as docu Neurologic: Reports no additional neurologic complaints and Reports Normal hearing present Psychiatric: Psychiatric: Reports no additional psychiatric complaints and Reports as per HPI Hematologic/Lymphatic: Hematologic/Lymphatic: Reports no additional hematologic/lymphatic complaints Allergic/Immunologic: Allergic/Immunologic: Reports no additional allergic/immunologic complaints [facility] Past Medical History Medical History (Updated 06/26/25 @ 23:17 by Verenice García APRN) Seizure disorder ESRD on hemodialysis End stage renal disease Cirrhosis Right knee injury Acute hyperkalemia Mitral insufficiency and aortic stenosis Esophageal varices in alcoholic cirrhosis Facial hematoma Pancytopenia Seizure Cirrhosis, alcoholic Acute respiratory failure Cirrhosis Renal osteodystrophy Erythropoietin deficiency anemia Thrombocytopenia Coagulopathy Encephalopathy, hepatic Alcoholic liver failure ESRD needing dialysis [id number] Surgical History Surgical History H/O arthroscopic knee surgery Bilateral knees H/O right knee surgery Hx of hernia repair H/O cataract removal with insertion of prosthetic lens History of vasectomy Status post biopsy of kidney Family History Family History Father Colon cancer Dementia Diabetes mellitus Mother Aneurysm Social History Social History (Updated 06/26/25 @ 23:08 by Verenice García APRN) Social History: The patient is single. 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 He has a daughter Deloris who lives in [place] who is listed as his emergency contact. He [facility] [place] [facility] [place] [facility]. Code status: Full code Smoking packs per day: 2.5 Smoking cigarettes per day: 50.0 Years smoked: 43 Smoking pack-years: 107.50 Smoking status: Unknown if ever smoked Tobacco type: cigarettes Alcohol intake: former Alcohol use details: none since04/11/21 Substance use: never Substance use type: marijuana Other substance usage details: gummies Lack of Transportation: No Lack of Food: Never True Current Housing: I Have Housing Concerned About Future Housing: No Difficulty Paying Gas/Electric Bills: No Difficulty Paying for Meds: No Currently Unemployed: No Education: Master's Degree or Higher Difficulty w/ Childcare or Family Care: No Spiritual care concerns: No Meds Home Medications and Allergies Home Medications ?Medication ?Instructions ?Recorded ?Confirmed ?Type levetiracetam 750 mg tablet 750 mg PO Q12H 30 days #60 tabs 08/21/24 06/26/25 Rx nadolol 20 mg tablet See Rx Instructions .Route 0 09/02/24 06/26/25 Rx .COMPLEX #90 tabs sevelamer carbonate 800 mg tablet 800 mg PO .COMPLEX 0 4/14/25 12/26/25 History furosemide 80 mg tablet See Rx Instructions .Route 0 02/23/25 06/26/25 Rx .COMPLEX #180 tabs hydralazine 25 mg tablet See Rx Instructions .Route 0 03/23/25 06/26/25 Rx .COMPLEX #270 tabs omeprazole 40 mg capsule,delayed 40 mg PO DAILY 06/26/25 History release isosorbide mononitrate 30 mg 30 mg PO QAM #30 tabs 11/2306/26/25 Rx tablet,extended release 24 hr pantoprazole 40 mg tablet,delayed 40 mg PO QAM #30 tab s 05/06/25 06/26/25 Rx release thiamine HCl (vitamin B1) 100 mg 100 mg PO QAM #30 tab s 05/06/25 06/26/25 Rx tablet (Vitamin B-1) folic acid 1 mg tablet See Rx Instructions .Route 1 07/11/24 06/26/25 Rx .COMPLEX #30 tabs amlodipine 5 mg tablet See Rx Instructions .Route 1 08/02/24 06/26/25 Rx .COMPLEX #90 tabs melatonin 3 mg tablet 9 mg PO HS Sleep 06/16/25 History lactulose 10 gram/15 mL oral 60 g PO TID 06/26/2506/02 History solution Allergies Allergy/AdvReac Type Severity Reaction Status Date / Time No Known Allergies Allergy Unknown Verified 06/26/25 22:22 Vital Signs Vital Signs - 24 hr 06/26/25 15:17 06/26/25 18:18 Temperature 98.2 F Pulse Rate 55 L 56 L Respiratory Rate 16 13 Blood Pressure 149/60 H 159/61 H Pulse Oximetry 99 95 Oxygen Delivery Room Air Exam Const: General: cooperative, comfortable, no acute distress, well developed, awake, Physically active, average body habitus and well nourished Nutritional Appearance: average body habitus and well nourished Orientation/consciousness: oriented to person, oriented to place, oriented to time and patient oriented x3 Limitations: no limitations HENMT: Head: normal to inspection, No palpable skull fracture present, normocephalic, atraumatic and abrasion Ears: hearing grossly normal bilaterally and external ears normal Eyes: General: appearance normal, both eyes and all related structures Alignment and Position: alignment normal Periorbital: periorbital findings normal Eyelids: eyelids normal Conjunctivae: conjunctivae normal Sclera: sclerae normal Cornea: corneas normal Pupils: Equal, round and reactive pupils present and Pupil accommodation reflex normal EOM: EOMs intact bilaterally Neck: Neck: normal visual inspection, full ROM and no lymphadenopathy Chest: Chest palpation & inspection: normal inspection of the chest Resp: Effort & Inspection: normal respiratory effort Auscultation: clear to auscultation bilaterally Percussion: percussion normal Cardio: Palpation: normal PMI Rate: regular rate Rhythm: regular rhythm Heart sounds: S1 normal heart sound present and S2 normal heart sound present Peripheral pulses: Peripheral pulses 2+ throughout GI: Inspection: normal to inspection Percussion: Yes normal to percussion Auscultation: normal bowel sounds Rectal Exam: deferred : General: Yes no CVA tenderness Back/Spine/Pelvis: Back: no CVA tenderness Cervical Spine: cervical ROM normal Skin: General skin exam: normal color Lesions: no lesions Rashes: no rashes Trauma: no lacerations or abrasions Wounds: no wounds Hair: normal Nails: normal Neuro: General: oriented to person, oriented to place, oriented to time and patient oriented x3 Cranial nerves: Yes Equal, round and reactive pupils present and Yes Normal hearing present Cognition (Neuro): normal cognition Motor exam (neuro): 5/5 motor strength present throughout Sensory Exam: normal sensation Extrem: General: normal to inspection Right upper extremity: normal to inspection and shoulder/upper arm Left upper extremity: normal to inspection and shoulder/upper arm Right lower extremity: normal to inspection Left lower extremity: normal to inspection Psych: Appearance: grossly normal Mental Status: mental status grossly normal Speech and movement: Normal speech and movement present Affect: normal affect Attitude: cooperative Thought process: Normal thought process present Thought content: Yes Normal thought content present Other: The patient is more awake now and he is alert and orientated x3. Results Labs Labs: Short CBC 06/26/25 Range/Units 17:58 WBC 3.9 L (4.5-10.0) K/mm3 Hgb 9.8 L (14.0-18.0) g/dL Hct 29.3 L (42.0-52.0) % Plt Count 27 L (150-375) k/mm3 [facility] 06/26/25 17:58 Sodium 134 L Potassium 4.4 Chloride 99 Carbon Dioxide 28 BUN 42 H Creatinine 5.74 H Glucose 113 H Calcium 8.1 L Liver Function 06/26/25 Range/Units 17:58 Total Bilirubin 2.0 H (0.2-1.3) mg/dL AST 31 (17-59) U/L ALT 17 (6-50) U/L Alkaline Phosphatase 167 H (38-126) U/L Albumin 3.7 (3.5-5.1) g/dL Imaging CT scan - abdomen: Radiologist's impression: ITS Impressions Head CT 06/26/25 17:32 IMPRESSION: 1. No acute intracranial abnormality. Chest X-Ray 06/26/25 17:37 IMPRESSION: 1: NO ACUTE CARDIOPULMONARY DISEASE. Chest/Abdomen/Pelvis CT 06/26/25 19:55 IMPRESSION: 1. No acute cardiopulmonary disease. 2: Cardiomegaly. 3: Cirrhosis of the liver with splenomegaly and markedly enlarged prostate gland or renal collaterals, consistent with portal venous hypertension. 4.: Trace ascites. 5: Nonobstructing bilateral nephrolithiasis. 6: Cholelithiasis. Quality VTE Prophylaxis VTE prophylaxis: mechanical ordered Assessment and Plan Assessment and plan (1) Acute hepatic encephalopathy: Code(s): K76.82 - Hepatic encephalopathy Status: Acute Assessment and Plan: -patient's ammonia level was only up to 41 this time. -the patient was alert orientated x3 when I assessed him. The patient became confused after receiving his dialysis treatment. -head CT was negative. -chest x-ray was read per radiologist as no acute cardiopulmonary disease. -GI has been consulted. -the patient was given lactulose in the emergency room. -continue with daily lactulose. (2) Cirrhosis: Qualifiers: Ascites presence: without ascites Hepatic cirrhosis type: alcoholic cirrhosis Qualified Code(s): K70.30 - Alcoholic cirrhosis of liver without ascites Code(s): K74.60 - Unspecified cirrhosis of liver Status: Acute Assessment and Plan: -GI has been consulted. -continue with his folic acid, Lasix, lactulose, and thiamine. -Chest/Abdomen/Pelvis CT 06/26/25 19:55 IMPRESSION: 1. No acute cardiopulmonary disease. 2: Cardiomegaly. 3: Cirrhosis of the liver with splenomegaly and markedly enlarged prostate gland or renal collaterals, consistent with portal venous hypertension. 4.: Trace ascites. 5: Nonobstructing bilateral nephrolithiasis. 6: Cholelithiasis. According to his friend, the patient is on a liver renal transplant list. (3) ESRD needing dialysis: Code(s): N18.6 - End stage renal disease; Z99.2 - Dependence on renal dialysis Status: Chronic Assessment and Plan: -the patient did have dialysis today. -his dialysis days are usually Sunday -nephrology has been consulted. -BUN is 42 and creatinine 5.74. Estimated GFR is 10. -continue with sevelamar carbonate. (4) Seizure disorder: Code(s): G40.909 - Epilepsy, unspecified, not intractable, without status epilepticus Status: Acute Assessment and Plan: -continue with Keppra -continue with seizure precautions (5) Hypertension: Qualifiers: Hypertension type: primary hypertension Qualified Code(s): I10 - Essential (primary) hypertension Code(s): I10 - Essential (primary) hypertension Status: Chronic Assessment and Plan: -continue with hydralazine, Nadolol, amlodipine. -current blood pressure is 139/64. (6) Pancytopenia: Code(s): D61.818 - Other pancytopenia Status: Acute Assessment and Plan: -this is most likely due to his cirrhosis of the liver. This is chronic. He is at his baseline. -white count is 3.9, RBCs 2.93, hemoglobin 9.8 and hematocrit 29.3. Platelet count is 27.
[2025-06-26 20:48] VITALS: BP 135/52; PULSE 56; RESP 12; TEMP 36.6; O2SAT 99
[2025-06-26] MEDS: LACTULOSE 20 GM/30 ML UDC PO (20:49)
[2025-06-26 21:35] VITALS: PULSE 57; RESP 16; O2SAT 99
[2025-06-26 21:48] VITALS: BP 125/73; PULSE 55; RESP 16; O2SAT 99
--- NOTE | 2025-06-26 21:48 | WPCEDHO ---
ED Hand Off Checklist All vitals saved:yes IV Site documented:yes All med administrations documented:yes Triage Note Triage Note Pt from local Dialysis center, pt 06/26/25 15:05 to be seen for being altered/ weakness. pt is A/O x4 on arrival . pt did finish his treatment. Clamps are in place Allergies No Known Allergies Allergy (Unknown, Verified 06/26/25 18:23) ER Family History (Last Reviewed 06/16/25 @ 11:01 by Verenice Mayorga [facility]) Father Colon cancer Dementia Diabetes mellitus Mother Aneurysm Administered/Completed Medications Discontinued Medications Famotidine (Famotidine 20 Mg/2 Ml Vial) 20 mg IV PUSH ONCE STA Stop: 06/26/25 18:08 Last Admin: 06/26/25 18:23 Dose: 20 mg Documented By: [facility] Lactulose (Lactulose 20 Gm/30 Ml Udc) 20 gm PO ONCE STA Stop: 06/26/25 20:27 Last Admin: 06/26/25 20:49 Dose: 20 gm Documented By: LARA Lorazepam (Lorazepam Inj (*Crx) 2 Mg/Ml Vial) 0.5 mg IV PUSH ONCE STA Stop: 06/26/25 19:21 Last Admin: 06/26/25 19:40 Dose: 0.5 mg Documented By: LARA Interventions/Assessments IV / Saline Lock, Insert Start: 06/26/25 17:06 Freq: STAT Status: Active Protocol: Document 06/26/25 18:00 [facility] (Rec: 06/26/25 18:01 [facility] [id number]) IV Assessment Peripheral Access Left Antecubital IV Catheter Access Initiated IV Insertion Date 06/26/25 IV Insertion Time 18:00 Catheter Gauge 18 IV Insertion 2 Attempts Ultrasound Used for No Placement IV Site Assessment WNL IV Care and WNL Maintenance PA: Cardiovascular Assessment Start: 06/26/25 15:05 Freq: Status: Active Protocol: Document 06/26/25 17:43 [facility] (Rec: 06/26/25 17:44 [facility] [id number]) Cardiovascular Assessment Cardiovascular None Symptoms Skin Description Normal Color Heart Sounds Normal Jugular Vein None Distention PA: Neurological Assessment Start: 06/26/25 15:05 Freq: Status: Active Protocol: Document 06/26/25 17:43 [facility] (Rec: 06/26/25 17:44 [facility] [id number]) Neurological Assessment Level of Alert,Awake Consciousness Arousable to Verbal Orientation Oriented to Person,Oriented to Place,Oriented to Time Neurological Confusion,Weakness, General Symptoms Hallucination Type None Unable to Redirect No Behavior Behavior Cooperative Patient Able to Comprehend Comprehension Memory Description Intact Ability to Maintain Unable to Assess Balance Facial Symmetry Symmetrical Speech Pattern Clear Ability to Swallow Normal Tongue Position Midline PA: Respiratory Assessment Start: 06/26/25 15:05 Freq: Status: Active Protocol: Document 06/26/25 17:43 [facility] (Rec: 06/26/25 17:44 [facility] [id number]) Respiratory Assessment Symptoms None Effort Normal Pattern Regular Depth Normal Chest Expansion Symmetrical Adult Capillary Normal/Less than 2 Seconds Refill Bilateral Throughout Phase Inspiratory & Expiratory Lung Sounds Clear Last Vital Signs Temperature 97.8 F 06/26/25 20:48 Pulse Rate 57 L 06/26/25 21:35 Respiratory Rate 16 06/26/25 21:35 Pulse Oximetry 99 06/26/25 21:35 Blood Pressure 135/52 L 06/26/25 20:48 Blood Pressure Mean 79 06/26/25 20:48 Blood Pressure Position Sitting 06/26/25 15:17 Oxygen Delivery Room Air 06/26/25 15:17 Weight 73.5 kg 06/26/25 15:05 Last Result - Abnormals Only WBC 3.9 K/mm3 (4.5-10.0) L 06/26/25 17:58 RBC 2.93 M/mm3 (4.6-6.20) L 06/26/25 17:58 Hgb 9.8 g/dL (14.0-18.0) L 06/26/25 17:58 Hct 29.3 % (42.0-52.0) L 06/26/25 17:58 RDW 14.8 % (11.5-14.5) H 06/26/25 17:58 Plt Count 27 k/mm3 (150-375) L 06/26/25 17:58 MPV 10.8 fl (7.4-10.4) H 06/26/25 17:58 Lymph # (Auto) 0.79 K/mm3 (0.9-3.2) L 06/26/25 17:58 PT 17.9 Seconds (11.1-14.7) H 06/26/25 17:58 APTT 38.2 Seconds (22.3-36.8) H 06/26/25 17:58 Sodium 134 mmol/L (137-145) L 06/26/25 17:58 BUN 42 mg/dL (9-20) H 06/26/25 17:58 Creatinine 5.74 mg/dL (0.7-1.3) H 06/26/25 17:58 Estimated GFR 10 (59-) L 06/26/25 17:58 Glucose 113 mg/dL (65-110) H 06/26/25 17:58 POC Capillary Glucose 123 mg/dl (65-105) H 06/26/25 17:15 Calcium 8.1 mg/dL (8.4-10.2) L 06/26/25 17:58 Total Bilirubin 2.0 mg/dL (0.2-1.3) H 06/26/25 17:58 Alkaline Phosphatase 167 U/L (38-126) H 06/26/25 17:58 Ammonia 41 umol/L (9-30) H 06/26/25 17:58 Most Recent Suicide Severity Rating Suicide Severity Rating NO RISK INDICATED 06/26/25 15:05
[2025-06-26 22:00] VITALS: BP 139/64; PULSE 56; RESP 18; TEMP 36.8; O2SAT 98; BMI 25.1
--- NOTE | 2025-06-26 22:01 | ADMGEN ---
This patient, Jj Cuello, was admitted to Medical Room 241-01. Patient/family oriented to hospital policies and general routines including ID bracelet, bed and alarms, visiting hours, pain management, procedures, bathroom and other care routines, personal items, smoking policy, room service/diet, and visiting hours. Information on how to activate the Rapid Response Team has been discussed. Patient/Family are encouraged to report perceived risks to care and to ask questions if they do not understand what they are told or what they should do.
[2025-06-27] VITALS (10 sets, daily range): BP systolic 134–152; BP diastolic 57–64; PULSE 57–75; RESP 17–61; TEMP 36.4–36.9; O2SAT 98–99
[2025-06-27] MEDS: FAMOTIDINE 20 MG/2 ML VIAL IV PUSH (00:08)
[2025-06-27] MEDS: SEVELAMER CARBONATE 800 MG TABLET PO (00:08)
[2025-06-27 00:45] LABS: MRSA (PCR) NOT DETECTED (NOT DETECTE)
[2025-06-27 04:30] LABS: Hematocrit 25.4 % (42.0-52.0); Hemoglobin 8.4 g/dL (14.0-18.0); Immature Platelet Fraction Pct 3.8 % (0.9-11.2); Mean Corpuscular HGB Conc 33.1 g/dl (32-36); Mean Corpuscular Hemoglobin 33.1 pg (26-34); Mean Corpuscular Volume 100.0 fl (80-100); Red Blood Count 2.54 M/mm3 (4.6-6.20); White Blood Count 2.3 K/mm3 (4.5-10.0)
[2025-06-27 04:33] LABS: Platelet Count Result 20 k/mm3 (150-375)
[2025-06-27 04:39] LABS: Ammonia 90 umol/L (9-30)
[2025-06-27 04:48] LABS: Anion Gap 9 mmol/L (4-12); Blood Urea Nitrogen 49 mg/dL (9-20); Calcium 7.9 mg/dL (8.4-10.2); Carbon Dioxide 27 mmol/L (22-30); Chloride 102 mmol/L (98-107); Estimated CRCL calculation 11 ml/min; Estimated Glomerular Filt Rate 9; Glucose 122 mg/dL (65-110); Potassium 4.3 mmol/L (3.4-5.0); Sodium 138 mmol/L (137-145)
--- NOTE | 2025-06-27 08:13 | PM.IMPN2 ---
Assessment and Plan Assessment and Plan (1) Acute hepatic encephalopathy: Code(s): K76.82 - Hepatic encephalopathy Status: Acute Assessment and Plan: -patient's ammonia level was only up to 41 this time. -the patient was alert orientated x3 when I assessed him. The patient became confused after receiving his dialysis treatment. -head CT was negative. -chest x-ray was read per radiologist as no acute cardiopulmonary disease. -GI has been consulted. -the patient was given lactulose in the emergency room. -continue with daily lactulose- awaiting GI consult and recommendations. (2) Cirrhosis: Qualifiers: Ascites presence: without ascites Hepatic cirrhosis type: alcoholic cirrhosis Qualified Code(s): K70.30 - Alcoholic cirrhosis of liver without ascites Code(s): K74.60 - Unspecified cirrhosis of liver Status: Acute Assessment and Plan: -GI has been consulted. -continue with his folic acid, Lasix, lactulose, and thiamine. -Chest/Abdomen/Pelvis CT 06/26/25 19:55 IMPRESSION: 1. No acute cardiopulmonary disease. 2: Cardiomegaly. 3: Cirrhosis of the liver with splenomegaly and markedly enlarged prostate gland or renal collaterals, consistent with portal venous hypertension. 4.: Trace ascites. 5: Nonobstructing bilateral nephrolithiasis. 6: Cholelithiasis. According to his friend, the patient is on a liver renal transplant list. - awaiting GI consult and recommendations has transplant tereza on 06/29 at 9 am at [facility] (3) ESRD needing dialysis: Code(s): N18.6 - End stage renal disease; Z99.2 - Dependence on renal dialysis Status: Chronic Assessment and Plan: -the patient did have dialysis today. -his dialysis days are usually Sunday -nephrology has been consulted. -BUN is 42 and creatinine 5.74. Estimated GFR is 10. -continue with sevelamar carbonate. neohrology consulted to manage dialysis- m w f and/or as directed per nephrology (4) Seizure disorder: Code(s): G40.909 - Epilepsy, unspecified, not intractable, without status epilepticus Status: Acute Assessment and Plan: -continue with Keppra -continue with seizure precautions (5) Hypertension: Qualifiers: Hypertension type: primary hypertension Qualified Code(s): I10 - Essential (primary) hypertension Code(s): I10 - Essential (primary) hypertension Status: Chronic Assessment and Plan: -continue with hydralazine, Nadolol, amlodipine. -current blood pressure is 139/64. (6) Pancytopenia: Code(s): D61.818 - Other pancytopenia Status: Acute Assessment and Plan: -this is most likely due to his cirrhosis of the liver. This is chronic. He is at his baseline. -white count is 3.9, RBCs 2.93, hemoglobin 9.8 and hematocrit 29.3. Platelet count is 27. Medical Record Review I have reviewed the following patient records and this information was taken into consideration when formulating the assessment and plan.: previous labs and previous clinic visits Time Spent With Patient Time with patient: 25 - 35 minutes Subjective Date/time seen: 06/27/25 08:13 Interval history: This is a 59-year-old male patient who has a history of cirrhosis of the liver and end-stage renal disease on dialysis Sunday. His friend is at the bedside offering a history. His friend to come to dialysis today. The patient received his usual dialysis today and when hemodialysis was complete,the patient became confused. 911 was called from dialysis today. The patient came to ER via the ambulance. His white count is 3.9. His H&H is 9.8 and 29.3. BUN 42 creatinine 5.74. Estimated GFR is 10. Point of care glucose 123. Calcium is low at 8.1. Ammonia level 41. He was negative for influenza a and B as well as RSV and COVID. Head CT no acute intracranial abnormality read by radiologist. Chest x-ray read by radiologist no acute cardiopulmonary disease. Chest abdomen pelvis CT was read as a following IMPRESSION: 1. No acute cardiopulmonary disease. 2: Cardiomegaly. 3: Cirrhosis of the liver with splenomegaly and markedly enlarged prostate gland or renal collaterals, consistent with portal venous hypertension. 4.: Trace ascites. 5: Nonobstructing bilateral nephrolithiasis. 6: Cholelithiasis. The patient was given Pepcid, Ativan and lactulose in the emergency room. Nephrology GI has been consulted. The patient is being admitted to observation status on the date of service of 06/26/2025. 06/27 Pt is seen and examined during morning rounds. GI is consulted. Of note- pt has a transplant tereza on 06/29 at 9 am at [facility] that he absolutely has to make. he is weak this morning, a bit slow to respond but alert and oriented. Review of Systems Constitutional: Constitutional: Reports as per HPI and Reports no additional constitutional complaints Eyes: Eyes: Reports as per HPI and Reports no additional eye complaints ENT: Reports system reviewed and no additional complaints, except as documented and Reports Normal hearing present Cardiovascular: Cardiovascular: Reports no additional cardiovascular complaints Respiratory: Respiratory: Reports as per HPI and Reports no additional respiratory complaints Gastrointestinal: Gastrointestinal: Reports as per HPI and Reports no additional gastrointestinal complaints Musculoskeletal: Musculoskeletal: Reports no additional musculoskeletal complaints Integumentary/Breasts: Skin/Breast: Reports system reviewed and no additional complaints, except as docu Neurologic: Reports system reviewed and no additional complaints, except as documented and Reports Normal hearing present Psychiatric: Psychiatric: Reports no additional psychiatric complaints and Reports as per HPI Hematologic/Lymphatic: Hematologic/Lymphatic: Reports no additional hematologic/lymphatic complaints Allergic/Immunologic: Allergic/Immunologic: Reports no additional allergic/immunologic complaints Exam Const: General: cooperative, comfortable, no acute distress and well developed Nutritional Appearance: average body habitus Orientation/consciousness: oriented to person, oriented to place, oriented to time and patient oriented x3 HENMT: Head: normal to inspection, No palpable skull fracture present, normocephalic and atraumatic Eyes: General: appearance normal, both eyes and all related structures Pupils: Equal, round and reactive pupils present EOM: EOMs intact bilaterally Neck: Neck: normal visual inspection Chest: Chest palpation & inspection: normal inspection of the chest Resp: Effort & Inspection: normal respiratory effort Auscultation: clear to auscultation bilaterally Percussion: percussion normal Cardio: Palpation: normal PMI Rate: regular rate Rhythm: regular rhythm Heart sounds: S1 normal heart sound present and S2 normal heart sound present Peripheral pulses: Peripheral pulses 2+ throughout GI: Inspection: normal to inspection GI Palp: Yes Soft to palpation Auscultation: normal bowel sounds : General: Yes no CVA tenderness Back/Spine/Pelvis: Back: no CVA tenderness Cervical Spine: cervical ROM normal Skin: General skin exam: normal color Lesions: no lesions Rashes: no rashes Trauma: no lacerations or abrasions Wounds: no wounds Hair: normal Nails: normal Neuro: General: oriented to person, oriented to place, oriented to time and patient oriented x3 Cranial nerves: Yes Equal, round and reactive pupils present and Yes Normal hearing present Cognition (Neuro): normal cognition Motor exam (neuro): 5/5 motor strength present throughout Sensory Exam: normal sensation Extrem: General: normal to inspection Right upper extremity: normal to inspection Left upper extremity: normal to inspection Right lower extremity: normal to inspection Left lower extremity: normal to inspection Psych: Appearance: grossly normal Mental Status: mental status grossly normal Speech and movement: Normal speech and movement present Affect: normal affect Attitude: cooperative Thought process: Normal thought process present Objective Data Vital Signs Vital Signs: Vital Signs - 24 hr 06/26/25 15:17 06/26/25 18:18 06/26/25 20:48 Temperature 98.2 F 97.8 F Pulse Rate 55 L 56 L 56 L Respiratory Rate 16 13 12 Blood Pressure 149/60 H 159/61 H 135/52 L Pulse Oximetry 99 95 99 Oxygen Delivery Room Air 06/26/25 21:35 06/26/25 21:48 06/26/25 22:00 Temperature 98.2 F Pulse Rate 57 L 55 L 56 L Respiratory Rate 16 16 18 Blood Pressure 125/73 139/64 Pulse Oximetry 99 99 98 Oxygen Delivery 06/27/25 00:00 06/27/25 00:10 06/27/25 04:00 Temperature Pulse Rate 61 61 Respiratory Rate Blood Pressure Pulse Oximetry Oxygen Delivery Room Air 06/27/25 06:00 06/27/25 06:53 Temperature 98.2 F 98.4 F Pulse Rate 57 L 62 Respiratory Rate 18 17 Blood Pressure 139/64 134/57 L Pulse Oximetry 98 98 Oxygen Delivery Intake/Output Intake/Output: Intake & Output 06/24/25 06/25/25 06/26/25 06/27/25 23:59 23:59 23:59 23:59 Intake Total 0 Output Total 0 Balance 0 Meds/Results Medications: Active Medications Generic Name Dose Route Start Last Admin Trade Name Freq PRN Reason Stop Dose Admin Amlodipine Besylate 5 mg 06/27/25 09:00 Amlodipine Besylate 5 Mg Tablet BY MOUTH DAILY [facility] Folic Acid 1 mg 06/27/25 09:00 Folic Acid 1 Mg Tablet BY MOUTH DAILY [facility] Furosemide 80 mg 06/27/25 09:00 Furosemide 80 Mg Tablet BY MOUTH BID [facility] Hydralazine HCl 25 mg 06/27/25 09:00 Hydralazine Hcl 25 Mg Tablet BY MOUTH TID [facility] Isosorbide Mononitrate 30 mg 06/27/25 09:00 Isosorbide Mononitrate 30 Mg Tab.Er.24h PO QAM [facility] Lactulose 40 gm 06/27/25 09:00 Lactulose 20 Gm/30 Ml Udc PO TID [facility] Levetiracetam 750 mg 06/26/25 23:10 06/26/25 23:41 Levetiracetam 250 Mg Tablet PO 750 mg Q12HR [facility] Administration Melatonin 9 mg 06/27/25 21:00 Melatonin 3 Mg Tablet PO HS PRN sleep Nadolol 20 mg 06/27/25 09:00 Nadolol 20 Mg Tablet BY MOUTH DAILY [facility] Pantoprazole Sodium 40 mg 06/27/25 09:00 Pantoprazole 40 Mg Tablet PO Q12HR [facility] Sevelamer Carbonate 1,600 mg 06/27/25 08:00 Sevelamer Carbonate 800 Mg Tablet PO TIDWM [facility] Sevelamer Carbonate 800 mg 06/26/25 23:40 06/27/25 00:08 Sevelamer Carbonate 800 Mg Tablet PO 800 mg PRN PRN Administration WITH SNACK Thiamine HCl 100 mg 06/27/25 09:00 Thiamine Hcl 100 Mg Tablet PO QAM [facility] Radiology Results: ITS Impressions Head CT 06/26/25 17:32 IMPRESSION: 1. No acute intracranial abnormality. Chest X-Ray 06/26/25 17:37 IMPRESSION: 1: NO ACUTE CARDIOPULMONARY DISEASE. Chest/Abdomen/Pelvis CT 06/26/25 19:55 IMPRESSION: 1. No acute cardiopulmonary disease. 2: Cardiomegaly. 3: Cirrhosis of the liver with splenomegaly and markedly enlarged prostate gland or renal collaterals, consistent with portal venous hypertension. 4.: Trace ascites. 5: Nonobstructing bilateral nephrolithiasis. 6: Cholelithiasis. Labs Labs: Laboratory Results - last 24 hr 06/26/25 06/26/25 06/26/25 17:15 17:58 23:27 WBC 3.9 L RBC 2.93 L Hgb 9.8 L Hct 29.3 L MCV 100.0 MCH 33.4 MCHC 33.4 RDW 14.8 H Plt Count 27 L MPV 10.8 H Immature Gran % (Auto) 0.5 Neut % (Auto) 66.5 Lymph % (Auto) 20.4 [place] % (Auto) 8.2 Eos % (Auto) 3.9 Baso % (Auto) 0.5 Lymph # (Auto) 0.79 L [place] # (Auto) 0.3 Eos # (Auto) 0.2 Baso # (Auto) 0.0 Abs Immat Gran (auto) 0.02 Absolute Neuts (auto) 2.6 Absolute Nucleated RBC 0.000 Nucleated RBC % 0.0 % Immature Plt Fraction 3.6 PT 17.9 H INR 1.5 APTT 38.2 H Sodium 134 L Potassium 4.4 Chloride 99 Carbon Dioxide 28 Anion Gap 7 BUN 42 H Creatinine 5.74 H Estim Creat Clear Calc 12 Estimated GFR 10 L Glucose 113 H POC Capillary Glucose 123 H Calcium 8.1 L Total Bilirubin 2.0 H AST 31 ALT 17 Alkaline Phosphatase 167 H Ammonia 41 H Total Protein 6.9 Albumin 3.7 Nasal MRSA (PCR) Not detected Influenza A (RT-PCR) Negative Influenza B (RT-PCR) Negative RSV (RT-PCR) Negative SARS-CoV-2 RNA (RT-PCR) Negative 06/27/25 04:19 WBC 2.3 L RBC 2.54 L Hgb 8.4 L Hct 25.4 L MCV 100.0 MCH 33.1 MCHC 33.1 RDW 14.6 H Plt Count 20 L* MPV 12.2 H Immature Gran % (Auto) Neut % (Auto) Lymph % (Auto) [place] % (Auto) Eos % (Auto) Baso % (Auto) Lymph # (Auto) [place] # (Auto) Eos # (Auto) Baso # (Auto) Abs Immat Gran (auto) Absolute Neuts (auto) Absolute Nucleated RBC Nucleated RBC % % Immature Plt Fraction 3.8 PT INR APTT Sodium 138 Potassium 4.3 Chloride 102 Carbon Dioxide 27 Anion Gap 9 BUN 49 H Creatinine 6.60 H Estim Creat Clear Calc 11 Estimated GFR 9 L Glucose 122 H POC Capillary Glucose Calcium 7.9 L Total Bilirubin AST ALT Alkaline Phosphatase Ammonia 90 H Total Protein Albumin Nasal MRSA (PCR) Influenza A (RT-PCR) Influenza B (RT-PCR) RSV (RT-PCR) SARS-CoV-2 RNA (RT-PCR) Quality VTE Prophylaxis VTE prophylaxis: mechanical ordered
[2025-06-27] MEDS: SEVELAMER CARBONATE 800 MG TABLET 1600 MG PO ×2 (09:42→17:32)
[2025-06-27] MEDS: THIAMINE HCL 100 MG TABLET PO (09:42)
[2025-06-27] MEDS: PANTOPRAZOLE 40 MG TABLET PO (09:43)
[2025-06-27] MEDS: FOLIC ACID 1 MG TABLET BY MOUTH (09:43)
--- NOTE | 2025-06-27 10:10 | WPDGICN ---
GI Consult Note Consult date/time: 06/27/25 10:10 HPI: Jj Cuello is a 59 year old male [facility] Past Medical History Medical History (Updated 06/26/25 @ 23:17 by Verenice García APRN) Seizure disorder ESRD on hemodialysis End stage renal disease Cirrhosis Right knee injury Acute hyperkalemia Mitral insufficiency and aortic stenosis Esophageal varices in alcoholic cirrhosis Facial hematoma Pancytopenia Seizure Cirrhosis, alcoholic Acute respiratory failure Cirrhosis Renal osteodystrophy Erythropoietin deficiency anemia Thrombocytopenia Coagulopathy Encephalopathy, hepatic Alcoholic liver failure ESRD needing dialysis [id number] Surgical History Surgical History H/O arthroscopic knee surgery Bilateral knees H/O right knee surgery Hx of hernia repair H/O cataract removal with insertion of prosthetic lens History of vasectomy Status post biopsy of kidney Family History Family History Father Colon cancer Dementia Diabetes mellitus Mother Aneurysm Social History Social History (Updated 06/26/25 @ 23:08 by Verenice García APRN) Social History: The patient is single. 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 He has a daughter Deloris who lives in [place] who is listed as his emergency contact. He lives alone in a [facility]. Code status: Full code Smoking packs per day: 2.5 Smoking cigarettes per day: 50.0 Years smoked: 43 Smoking pack-years: 107.50 Smoking status: Unknown if ever smoked Tobacco type: cigarettes Alcohol intake: former Alcohol use details: none since04/11/21 Substance use: never Substance use type: marijuana Other substance usage details: gummies Last use: last use of ETOH 5 yrs ago. gummies used today 06/26/25. Lack of Transportation: No Lack of Food: Never True Current Housing: I Have Housing Concerned About Future Housing: No Difficulty Paying Gas/Electric Bills: No Difficulty Paying for Meds: No Currently Unemployed: No Education: Master's Degree or Higher Difficulty w/ Childcare or Family Care: No Spiritual care concerns: No Meds Home Medications and Allergies Home Medications ?Medication ?Instructions ?Recorded ?Confirmed ?Type levetiracetam 750 mg tablet 750 mg PO Q12H 30 days #60 tabs 08/21/24 06/26/25 Rx nadolol 20 mg tablet See Rx Instructions .Route 09/02/24 06/26/25 Rx .COMPLEX #90 tabs sevelamer carbonate 800 mg tablet 800 mg PO .COMPLEX 10/13/24 06/26/25 History furosemide 80 mg tablet See Rx Instructions .Route 02/23/25 06/26/25 Rx .COMPLEX #180 tabs hydralazine 25 mg tablet See Rx Instructions .Route 03/23/25 06/26/25 Rx .COMPLEX #270 tabs omeprazole 40 mg capsule,delayed 40 mg PO DAILY 05/02/25 06/26/25 History release isosorbide mononitrate 30 mg 30 mg PO QAM #30 tabs 05/06/25 06/26/25 Rx tablet,extended release 24 hr pantoprazole 40 mg tablet,delayed 40 mg PO QAM #30 tabs 05/06/25 06/26/25 Rx release thiamine HCl (vitamin B1) 100 mg 100 mg PO QAM #30 tabs 05/06/25 06/26/25 Rx tablet (Vitamin B-1) folic acid 1 mg tablet See Rx Instructions .Route 05/11/25 06/26/25 Rx .COMPLEX #30 tabs amlodipine 5 mg tablet See Rx Instructions .Route 06/01/25 06/26/25 Rx .COMPLEX #90 tabs melatonin 3 mg tablet 9 mg PO HS Sleep 06/16/25 06/26/25 History lactulose 10 gram/15 mL oral 60 g PO TID 06/26/25 06/26/25 History solution Allergies Allergy/AdvReac Type Severity Reaction Status Date / Time No Known Allergies Allergy Unknown Verified 06/26/25 22:22 Vital Signs Vital Signs - 24 hr 06/26/25 15:17 06/26/25 18:18 06/26/25 20:48 Temperature 98.2 F 97.8 F Pulse Rate 55 L 56 L 56 L Respiratory Rate 16 13 12 Blood Pressure 149/60 H 159/61 H 135/52 L Pulse Oximetry 99 95 99 Oxygen Delivery Room Air 06/26/25 21:35 06/26/25 21:48 06/26/25 22:00 Temperature 98.2 F Pulse Rate 57 L 55 L 56 L Respiratory Rate 16 16 18 Blood Pressure 125/73 139/64 Pulse Oximetry 99 99 98 Oxygen Delivery 06/27/25 00:00 06/27/25 00:10 06/27/25 04:00 Temperature Pulse Rate 61 61 Respiratory Rate Blood Pressure Pulse Oximetry Oxygen Delivery Room Air 06/27/25 06:00 06/27/25 06:53 Temperature 98.2 F 98.4 F Pulse Rate 57 L 62 Respiratory Rate 18 17 Blood Pressure 139/64 134/57 L Pulse Oximetry 98 98 Oxygen Delivery Results Labs 06/27/25 04:19 06/27/25 04:19 Labs: Short CBC 06/26/25 06/27/25 Range/Units 17:58 04:19 WBC 3.9 L 2.3 L (4.5-10.0) K/mm3 Hgb 9.8 L 8.4 L (14.0-18.0) g/dL Hct 29.3 L 25.4 L (42.0-52.0) % Plt Count 27 L 20 L* (150-375) k/mm3 BMP 06/26/25 06/27/25 17:58 04:19 Sodium 134 L 138 Potassium 4.4 4.3 Chloride 99 102 Carbon Dioxide 28 27 BUN 42 H 49 H Creatinine 5.74 H 6.60 H Glucose 113 H 122 H Calcium 8.1 L 7.9 L Liver Function 06/26/25 Range/Units 17:58 Total Bilirubin 2.0 H (0.2-1.3) mg/dL AST 31 (17-59) U/L ALT 17 (6-50) U/L Alkaline Phosphatase 167 H (38-126) U/L Albumin 3.7 (3.5-5.1) g/dL
[2025-06-27] MEDS: ISOSORBIDE MONONITRATE 30 MG TAB.ER.24H PO (10:45)
[2025-06-27] MEDS: FUROSEMIDE 80 MG TABLET BY MOUTH (10:45)
--- NOTE | 2025-06-27 11:23 | WPDGICN ---
Assessment and Plan Assessment and plan (1) Fever: Code(s): R50.9 - Fever, unspecified Status: Acute (2) Esophageal varices in alcoholic cirrhosis: Code(s): K70.30 - Alcoholic cirrhosis of liver without ascites; I85.10 - Secondary esophageal varices without bleeding Status: Acute Plan 59-year-old male with history of end-stage renal disease on hemodialysis, history of cirrhosis of liver secondary to alcohol abuse with him to the hospital because of hepatic encephalopathy. Patient at the present time his other oriented. Patient is scheduled to have a consultation for possible liver transplantation on June 29 2025 at 1:45 p.m. plan 1. Decrease lactulose to 30 g PO, TID. ( Patient has large amount of bowel movement.) 2. Regular diet. 3. Try to discharge patient home at the most by Sunday afternoon to make sure that he can for his appointment on June 29. GI Consult Note Consult date/time: 06/27/25 11:23 Reason for consult: History of cirrhosis of the liver secondary to alcohol abuse. Hepatic encephalopathy. Anemia. HPI: Jj Cuello is a 59 year old male who was admitted to the hospital last night because of change in mental status secondary to hepatic encephalopathy. Patient was diagnosed having cirrhosis of liver secondary to alcohol abuse in 2014. He also had a history of chronic renal failure on hemodialysis 3 times a week. Patient was having dialysis and was talking to his friend. He stated he became confused and wake up at the hospital. Patient is alert oriented x3. Denies any nausea vomiting. No abdominal pain. No hematemesis. No hematemesis. Patient has no recent history of infection. He takes melatonin to help him going to sleep every night. Patient stated that he takes 60 g of lactulose 3 times a day. And he has been complaining of having large number of bowel movements today. In evaluating the etiologies of his symptoms patient had a CT scan of the abdomen and pelvis that showed a trace of ascites, gallstones. There was no hepatoma seen. Patient also had a CT of the brain did not show any sign of bleed. Patient is scheduled to have a liver transplant consultation at of the [facility] in [place] on June 29 at 9:45 p.m. in the afternoon. Review of Systems Review of Systems: all the 11 review of symptoms are negative except the ones mentioned in the H&P. Constitutional: Comments: Patient is alert oriented x3. Eyes: Comments: Within normal Cardiovascular: Comments: Regular S1-S2 Respiratory: Comments: Clear to auscultation Gastrointestinal: Comments: Soft not tender to palpation, no clinical signs of ascites. Neurologic: Comments: Normal [facility] Past Medical History Medical History (Updated 06/28/25 @ 18:56 by Ute Carnes APRN) Seizure disorder ESRD on hemodialysis End stage renal disease Cirrhosis Right knee injury Acute hyperkalemia Mitral insufficiency and aortic stenosis Esophageal varices in alcoholic cirrhosis Facial hematoma Pancytopenia Seizure Cirrhosis, alcoholic Acute respiratory failure Cirrhosis Renal osteodystrophy Erythropoietin deficiency anemia Thrombocytopenia Coagulopathy Encephalopathy, hepatic Alcoholic liver failure ESRD needing dialysis m-w-f Surgical History Surgical History H/O arthroscopic knee surgery Bilateral knees H/O right knee surgery Hx of hernia repair H/O cataract removal with insertion of prosthetic lens History of vasectomy Status post biopsy of kidney Family History Family History Father Colon cancer Dementia Diabetes mellitus Mother Aneurysm Social History Social History (Updated 06/26/25 @ 23:08 by Verenice García APRN) Social History: The patient is single. 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 He has a daughter Deloris who lives in [place] who is listed as his emergency contact. He lives alone in a [facility]. Code status: Full code Smoking packs per day: 2.5 Smoking cigarettes per day: 50.0 Years smoked: 43 Smoking pack-years: 107.50 Smoking status: Unknown if ever smoked Tobacco type: cigarettes Alcohol intake: former Alcohol use details: none since04/11/21 Substance use: never Substance use type: marijuana Other substance usage details: gummies Last use: last use of ETOH 5 yrs ago. gummies used today 06/26/25. Lack of Transportation: No Lack of Food: Never True Current Housing: I Have Housing Concerned About Future Housing: No Difficulty Paying Gas/Electric Bills: No Difficulty Paying for Meds: No Currently Unemployed: No Education: Master's Degree or Higher Difficulty w/ Childcare or Family Care: No Spiritual care concerns: No Meds Home Medications and Allergies Home Medications ?Medication ?Instructions ?Recorded ?Confirmed ?Type levetiracetam 750 mg tablet 750 mg PO Q12H 30 days #60 tabs 08/21/24 06/26/25 Rx nadolol 20 mg tablet See Rx Instructions .Route 09/02/24 06/26/25 Rx .COMPLEX #90 tabs sevelamer carbonate 800 mg tablet 800 mg PO .COMPLEX 10/13/24 06/26/25 History furosemide 80 mg tablet See Rx Instructions .Route 02/23/25 06/26/25 Rx .COMPLEX #180 tabs hydralazine 25 mg tablet See Rx Instructions .Route 03/23/25 06/26/25 Rx .COMPLEX #270 tabs omeprazole 40 mg capsule,delayed 40 mg PO DAILY 05/02/25 06/26/25 History release isosorbide mononitrate 30 mg 30 mg PO QAM #30 tabs 05/06/25 06/26/25 Rx tablet,extended release 24 hr pantoprazole 40 mg tablet,delayed 40 mg PO QAM #30 tabs 05/06/25 06/26/25 Rx release thiamine HCl (vitamin B1) 100 mg 100 mg PO QAM #30 tabs 05/06/25 06/26/25 Rx tablet (Vitamin B-1) folic acid 1 mg tablet See Rx Instructions .Route 05/11/25 06/26/25 Rx .COMPLEX #30 tabs amlodipine 5 mg tablet See Rx Instructions .Route 06/01/25 06/26/25 Rx .COMPLEX #90 tabs melatonin 3 mg tablet 9 mg PO HS Sleep 06/16/25 06/26/25 History lactulose 10 gram/15 mL oral 60 g PO TID 06/26/25 06/26/25 History solution Allergies Allergy/AdvReac Type Severity Reaction Status Date / Time No Known Allergies Allergy Unknown Verified 06/26/25 22:22 Vital Signs Vital Signs - 24 hr 06/26/25 15:17 06/26/25 18:18 06/26/25 20:48 Temperature 98.2 F 97.8 F Pulse Rate 55 L 56 L 56 L Respiratory Rate 16 13 12 Blood Pressure 149/60 H 159/61 H 135/52 L Pulse Oximetry 99 95 99 Oxygen Delivery Room Air 06/26/25 21:35 06/26/25 21:48 06/26/25 22:00 Temperature 98.2 F Pulse Rate 57 L 55 L 56 L Respiratory Rate 16 16 18 Blood Pressure 125/73 139/64 Pulse Oximetry 99 99 98 Oxygen Delivery 06/27/25 00:00 06/27/25 00:10 06/27/25 04:00 Temperature Pulse Rate 61 61 Respiratory Rate Blood Pressure Pulse Oximetry Oxygen Delivery Room Air 06/27/25 06:00 06/27/25 06:53 Temperature 98.2 F 98.4 F Pulse Rate 57 L 62 Respiratory Rate 18 17 Blood Pressure 139/64 134/57 L Pulse Oximetry 98 98 Oxygen Delivery Exam Extrem: Other: Physical examination is unremarkable. Results Labs 06/28/25 14:37 06/28/25 14:37 Labs: Short CBC 06/26/25 06/27/25 Range/Units 17:58 04:19 WBC 3.9 L 2.3 L (4.5-10.0) K/mm3 Hgb 9.8 L 8.4 L (14.0-18.0) g/dL Hct 29.3 L 25.4 L (42.0-52.0) % Plt Count 27 L 20 L* (150-375) k/mm3 BMP 06/26/25 06/27/25 17:58 04:19 Sodium 134 L 138 Potassium 4.4 4.3 Chloride 99 102 Carbon Dioxide 28 27 BUN 42 H 49 H Creatinine 5.74 H 6.60 H Glucose 113 H 122 H Calcium 8.1 L 7.9 L Liver Function 06/26/25 Range/Units 17:58 Total Bilirubin 2.0 H (0.2-1.3) mg/dL AST 31 (17-59) U/L ALT 17 (6-50) U/L Alkaline Phosphatase 167 H (38-126) U/L Albumin 3.7 (3.5-5.1) g/dL
--- NOTE | 2025-06-27 13:42 | PC.NURSE ---
PCT relayed message that patient nauseated, requesting Zofran & Melatonin so he can sleep. I went to the room to the room to discuss with the patient that the doctor from the previous shift did not want him to have nausea medication because they prolong the QT & he already has a prolonged QT interval. I was also going to mention to him that we do not give sleep aids during the day because they disrupt the sleep cycle & it is better for him to sleep at night. When I went to the room to speak with him, he was asleep.
--- NOTE | 2025-06-27 13:45 | P.CONNP_ITS ---
Assessment and Plan Assessment and plan (1) End stage renal disease: Code(s): N18.6 - End stage renal disease Status: Inactive Assessment and Plan: * HD tomorrow * continue holiday (/) dialysis schedule of Sunday/Sunday/Sunday this week while hospitalized * follow electrolytes, volume status, and clearance (2) Altered mental status: Qualifiers: Altered mental status type: unspecified Qualified Code(s): R41.82 - Altered mental status, unspecified Code(s): R41.82 - Altered mental status, unspecified Status: Acute Assessment and Plan: * resolving if not resolved * improvement already noted by arrival to ER * presumably due to hepatic encephalopathy: * ammonia level on admission noted * known history of medication non-compliance (with lactulose) * CT of head negative * on lactulose * follow mentation (3) Cirrhosis: Qualifiers: Ascites presence: without ascites Hepatic cirrhosis type: alcoholic cirrhosis Qualified Code(s): K70.30 - Alcoholic cirrhosis of liver without ascites Code(s): K74.60 - Unspecified cirrhosis of liver Status: Acute Assessment and Plan: * known history * has been sober for the last 2 - 3 years * continue lactulose * GI recommendations noted (4) Hypertension: Qualifiers: Hypertension type: primary hypertension Qualified Code(s): I10 - Essential (primary) hypertension Code(s): I10 - Essential (primary) hypertension Status: Chronic Assessment and Plan: * reasonable control * follow trend of hemodynamics (5) Anemia: Code(s): D64.9 - Anemia, unspecified Status: Chronic Assessment and Plan: * due to ESRD with contributions from liver disease * Epogen with HD * follow trend of H/H (6) Pancytopenia: Code(s): D61.818 - Other pancytopenia Status: Acute Assessment and Plan: * somewhat of a chronic issue * thought to be secondary to liver disease * anemia further complicated by ESRD I will continue to follow the patient with you while he remains hospitalized and make further recommendations as deemed necessary. Thank you for allowing me to participate in the care of this patient. L History of Present Illness Reason for Consult Consult date: 06/27/25 Reason for consult: end stage renal disease Chief Complaint Chief complaint: Hepatic encephalopathy History of Present Illness Narrative: The patient is a 59-year-old male with a past medical history as outlined below who presented to [facility] Emergency Room yesterday for altered mental status. For review the records, the patient was at his outpatient dialysis treatment yesterday when he suddenly developed acute confusion. His altered mental status persisted despite conservative therapy so his dialysis treatment was ended approximately 30 minutes early. In spite of discontinuation of the dialysis treatment, he still remains somewhat altered. I am unclear if there are any other symptoms around the time of or during his period of confusion. Do the persistence of his altered mental status, EMS was called and he was subsequently transported to the emergency room for further assessment. Workup and evaluation emergency room demonstrated the patient be hemodynamically stable and afebrile. By the time of his arrival to the emergency room, his mentation had returned to baseline and he was apparently alert and oriented x 4 . Routine blood test demonstrated a white blood cell count 3.9, hemoglobin 9.8, hematocrit 29.3, chronic thrombocytopenia, and a chemistry panel consistent with his known history of end-stage renal disease without any critical electrolyte abnormalities. His ammonia level was 41 and his glucose was 123. Viral testing for influenza, RSV, and COVID were negative as well. His EKG did not demonstrate any acute ischemic changes. His chest x-ray demonstrated no acute cardiopulmonary disease and subsequent CT scan of the head was negative for any acute intracranial abnormality. A CT scan of his chest/abdomen/pelvis Was significant for cardiomegaly, liver cirrhosis, splenomegaly, markedly enlarged prostate gland, trace ascites, nonobstructing bilateral nephrolithiasis, and cholelithiasis. He was subsequently admitted to the hospital for further evaluation and therapy. Since his admission, his mental status appears to be back to baseline although as already mentioned, his mentation had already improved if not returned to normal by the time of his arrival to the emergency room yesterday evening. Renal consultation was requested due to his end-stage renal disease. The patient normally dialyzes on a Sunday, Sunday, Sunday dialysis schedule at [facility] under the care of Dr. Bashir Norris. his last dialysis treatment, as already mentioned, was yesterday and he did received the majority of his treatment prior to discontinuation given his acute confusion. From a dialysis perspective, the patient usually does reasonably well with his treatments with relative stability in his monthly ESRD labs although he has had issues and problems with hepatic encephalopathy that can sometimes cause disruption in his outpatient dialysis schedule with associated acute hospitalizations. Given the holiday (/ ) dialysis schedule, he is due for his next dialysis treatment tomorrow. Currently, at the time my evaluation, His mentation seems stable if not currently at baseline although he is having some issues with nausea when seen. Review of Systems 2 Review of Systems: As per HPI. [facility] Past Medical History Medical History (Updated 06/26/25 @ 23:17 by Verenice García APRN) Cirrhosis ESRD on hemodialysis Right knee injury Seizure disorder End stage renal disease Acute hyperkalemia Mitral insufficiency and aortic stenosis Esophageal varices in alcoholic cirrhosis Facial hematoma Pancytopenia Seizure Cirrhosis, alcoholic Acute respiratory failure Cirrhosis Renal osteodystrophy Erythropoietin deficiency anemia Thrombocytopenia Coagulopathy Encephalopathy, hepatic Alcoholic liver failure ESRD needing dialysis m-w-f Surgical History Surgical History H/O arthroscopic knee surgery Bilateral knees H/O right knee surgery Hx of hernia repair H/O cataract removal with insertion of prosthetic lens History of vasectomy Status post biopsy of kidney Family History Family History Father Colon cancer Dementia Diabetes mellitus Mother Aneurysm Social History Social History (Updated 06/26/25 @ 23:08 by Verenice García APRN) Social History: The patient is single. 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 He has a daughter Deloris who lives in [place] who is listed as his emergency contact. He lives alone in a [facility]. Code status: Full code Smoking packs per day: 2.5 Smoking cigarettes per day: 50.0 Years smoked: 43 Smoking pack-years: 107.50 Smoking status: Unknown if ever smoked Tobacco type: cigarettes Alcohol intake: former Alcohol use details: none since04/11/21 Substance use: never Substance use type: marijuana Other substance usage details: gummies Last use: last use of ETOH 5 yrs ago. gummies used today 06/26/25. Lack of Transportation: No Lack of Food: Never True Current Housing: I Have Housing Concerned About Future Housing: No Difficulty Paying Gas/Electric Bills: No Difficulty Paying for Meds: No Currently Unemployed: No Education: Master's Degree or Higher Difficulty w/ Childcare or Family Care: No Spiritual care concerns: No Meds Home Medications and Allergies Home Medications ?Medication ?Instructions ?Recorded ?Confirmed ?Type levetiracetam 750 mg tablet 750 mg PO Q12H 30 days #60 tabs 08/21/24 06/26/25 Rx nadolol 20 mg tablet See Rx Instructions .Route 0 09/02/24 06/26/25 Rx .COMPLEX #90 tabs sevelamer carbonate 800 mg tablet 800 mg PO .COMPLEX 0 10/13/24 06/26/25 History furosemide 80 mg tablet See Rx Instructions .Route 0 02/23/25 06/26/25 Rx .COMPLEX #180 tabs hydralazine 25 mg tablet See Rx Instructions .Route 0 03/23/25 06/26/25 Rx .COMPLEX #270 tabs omeprazole 40 mg capsule,delayed 40 mg PO DAILY 06/26/25 History release isosorbide mononitrate 30 mg 30 mg PO QAM #30 tabs 11/2306/26/25 Rx tablet,extended release 24 hr pantoprazole 40 mg tablet,delayed 40 mg PO QAM #30 tab s 05/06/25 06/26/25 Rx release thiamine HCl (vitamin B1) 100 mg 100 mg PO QAM #30 tab s 05/06/25 06/26/25 Rx tablet (Vitamin B-1) folic acid 1 mg tablet See Rx Instructions .Route 1 07/11/24 06/26/25 Rx .COMPLEX #30 tabs amlodipine 5 mg tablet See Rx Instructions .Route 1 08/02/24 06/26/25 Rx .COMPLEX #90 tabs melatonin 3 mg tablet 9 mg PO HS Sleep 06/16/25 History lactulose 10 gram/15 mL oral 60 g PO TID 06/26/2506/02 History solution Allergies Allergy/AdvReac Type Severity Reaction Status Date / Time No Known Allergies Allergy Unknown Verified 06/26/25 22:22 Vital Signs Vital Signs Temp Pulse Resp BP Pulse Ox O2 Del Method 06/27/25 13:00 98.4 F 61 61 H 152/64 H 99 06/27/25 08:00 66 06/27/25 08:00 62 17 98 Room Air 06/27/25 06:53 98.4 F 62 17 134/57 L 98 06/27/25 06:00 98.2 F 57 L 18 139/64 98 06/27/25 04:00 61 06/27/25 00:10 Room Air 06/27/25 00:00 61 06/26/25 22:00 98.2 F 56 L 18 139/64 98 06/26/25 21:48 55 L 16 125/73 99 06/26/25 21:35 57 L 16 99 06/26/25 20:48 97.8 F 56 L 12 135/52 L 99 Exam 2 Narrative: GENERAL APPEARANCE: well developed well nourished male in no acute distress HEENT: normocephalic, atraumatic, normal conjunctiva and sclera, nares patient NECK: no lymphadenopathy, thyromegaly, or JVD MOUTH: normal lips, teeth, and gums CARDIOVASCULAR: RRR, normal S1 and S2, no rub RESPIRATORY: clear anteriorly ABDOMEN: soft, nontender, nondistended, positive bowel sounds present EXTREMITIES: no evidence of cyanosis, clubbing, or edema NEUROLOGICAL: awake and alert; no focal deficits noted Results Lab Results 06/27/25 04:19 06/27/25 04:19 Lab results: Most recent lab results Calcium 7.9 mg/dL (8.4-10.2) L 06/27/25 04:19
[2025-06-27] MEDS: LACTULOSE 20 GM/30 ML UDC 30 GM PO (17:31)
[2025-06-27] MEDS: PANTOPRAZOLE SODIUM IV 40 MG VIAL IV PUSH (22:58)
[2025-06-28] VITALS (30 sets, daily range): BP systolic 131–199; BP diastolic 58–88; PULSE 57–81; RESP 16–22; TEMP 36.3–38.4; O2SAT 94–100
[2025-06-28 04:32] LABS: Hematocrit 27.8 % (42.0-52.0); Hemoglobin 9.2 g/dL (14.0-18.0); Mean Corpuscular HGB Conc 33.1 g/dl (32-36); Mean Corpuscular Hemoglobin 33.2 pg (26-34); Mean Corpuscular Volume 100.4 fl (80-100); Red Blood Count 2.77 M/mm3 (4.6-6.20); White Blood Count 3.3 K/mm3 (4.5-10.0)
[2025-06-28 04:39] LABS: Ammonia 187 umol/L (9-30)
[2025-06-28 04:49] LABS: Platelet Count Result 19 k/mm3 (150-375)
[2025-06-28 04:59] LABS: Albumin Level 3.4 g/dL (3.5-5.1); Anion Gap 8 mmol/L (4-12); Blood Urea Nitrogen 67 mg/dL (9-20); Calcium 8.3 mg/dL (8.4-10.2); Carbon Dioxide 27 mmol/L (22-30); Chloride 101 mmol/L (98-107); Estimated CRCL calculation 8 ml/min; Estimated Glomerular Filt Rate 6; Glucose 119 mg/dL (65-110); Potassium 5.3 mmol/L (3.4-5.0); Sodium 136 mmol/L (137-145)
[2025-06-28] MEDS: LACTULOSE ENEMA 200 GM/1,000 ML ENEMA RECTAL (07:21)
--- NOTE | 2025-06-28 07:29 | PM.IMPN2 ---
Assessment and Plan Assessment and Plan (1) Acute hepatic encephalopathy: Code(s): K76.82 - Hepatic encephalopathy Status: Acute Assessment and Plan: The patient has been receiving lactulose PO and lactulose enemas. Currently obtunded so NG tube was placed Ammonia level 83>41<90<187 06/28 AM, repeat 26 06/28 PM after dialysis -The patient was previously alert orientated x3 per notes. Staff reports he was walking to the bathroom yesterday with a walker and eating. The patient became confused last night and worsened today, unable to swallow. Alkalosis may be contributing to worsening mental status -Head CT was negative. --NG tube was placed. Lactulose 30< 60 TID. --Added rifaximin BID since patient may have been taking it prior to admission. -GI following NG tube placed 06/28 given significant lethargy. --Speech eval --Water Systems Designer consult for tube feeds. Start tomorrow if not improved (2) Cirrhosis: Qualifiers: Ascites presence: without ascites Hepatic cirrhosis type: alcoholic cirrhosis Qualified Code(s): K70.30 - Alcoholic cirrhosis of liver without ascites Code(s): K74.60 - Unspecified cirrhosis of liver Status: Acute Assessment and Plan: -GI has been consulted, appreciate recommendations -continue with his folic acid, Lasix, lactulose 30<60 TID, and thiamine. --Add rifaximin BID for now, Ministerio reports they had discussed starting it but wasn't sure if he was taking it prior to admission or not. Castro check for discharge 06/26 Chest/Abdomen/Pelvis CT 1. No acute cardiopulmonary disease. 2: Cardiomegaly. 3: Cirrhosis of the liver with splenomegaly and markedly enlarged prostate gland or renal collaterals, consistent with portal venous hypertension. 4.: Trace ascites. 5: Nonobstructing bilateral nephrolithiasis. 6: Cholelithiasis. has transplant tereza on 06/29 at 9 am at [facility] (3) ESRD needing dialysis: Code(s): N18.6 - End stage renal disease; Z99.2 - Dependence on renal dialysis Status: Chronic Assessment and Plan: S/P dialysis 06/28. -his dialysis days are usually Sunday -nephrology consulted appreciate recommendations. -BUN is 42 and creatinine 5.74. Estimated GFR is 10. -continue with sevelamer carbonate. neohrology consulted to manage dialysis- m w f and/or as directed per nephrology (4) Seizure disorder: Code(s): G40.909 - Epilepsy, unspecified, not intractable, without status epilepticus Status: Acute Assessment and Plan: -continue with Keppra IV BID -continue with seizure precautions (5) Hypertension: Qualifiers: Hypertension type: primary hypertension Qualified Code(s): I10 - Essential (primary) hypertension Code(s): I10 - Essential (primary) hypertension Status: Chronic Assessment and Plan: -continue with hydralazine, Nadolol, amlodipine. -current blood pressure is 139/64. (6) Pancytopenia: Code(s): D61.818 - Other pancytopenia Status: Acute Assessment and Plan: Likely 2/2 cirrhosis of the liver. This is chronic. He is at his baseline. -white count is 3.9, RBCs 2.93, hemoglobin 9.8 and hematocrit 29.3. Platelet count is 27. (7) Fever: Code(s): R50.9 - Fever, unspecified Status: Acute Assessment and Plan: Fever to 100.6 tonight. WBC 3.7 Possible aspiration vs aspiration pneumonitis vs other. Nasal MRSA not detected 06/26 Coarse lungs on exam --Blood cultures --Start Unasyn 1.5G daily after dialysis and monitor Time Spent With Patient Time with patient: Greater than 35 minutes Subjective Date/time seen: 06/28/25 16:15 Interval history: Per discussion with nursing, became more confused overnight, not swallowing this morning. Not following commands on exam. Worsened after dialysis. Metabolic alkalosis on ABG Plt 19. INR 1.5 06/26. Potassium 5.3 prior to dialysis. Ammonia 187. Repeat labs no clear explanation for mental status change. Head CT no acute findings. Repeat ammonia 26. WBC about the same Not swallowing well and lungs coarse but chest x-ray clear 59-year-old male patient who has a history of cirrhosis of the liver and end-stage renal disease on dialysis [facility], admitted for confusion. Ammonia 41. CT showed evidence of cirrhosis and portal venous HTN, cholelithiasis. Reported to be on the liver transplant list and has an outpatient appointment June 29. Outpatient apprentice technician is Dr. Norris. Declining mental status 06/27-06/28. Exam Narrative: General - Lethargic, mumbles some words. not following commands. Eyes - PERRLA, EOM intact ENT - No thrush, No erythema. NG tube in place Neck - No noticeable or palpable swelling Lymph Nodes - No lymphadenopathy Cardiovascular - RRR no m/r/g, no JVD Lungs: Coarse No wheezing, use of accessory muscles, no crackles Skin - Skin warm and dry, no wounds or rashes Abdomen - Normal bowel sounds, abdomen soft and nontender Extremities - No edema, cyanosis or clubbing Musculoskeletal - 5/5 strength, normal range of motion, no swollen or erythematous joints. Neurological ? Alert and oriented x 1, CN 2-12 grossly intact. Psych: Normal mood and affect Objective Data Vital Signs Vital Signs: Vital Signs - 24 hr 06/27/25 08:00 06/27/25 08:00 06/27/25 12:00 Temperature Pulse Rate 62 66 64 Respiratory Rate 17 Blood Pressure Pulse Oximetry 98 Oxygen Delivery Room Air 06/27/25 14:00 06/27/25 16:00 06/27/25 16:00 Temperature 98.4 F Pulse Rate 61 57 L 75 Respiratory Rate 61 H Blood Pressure 152/64 H Pulse Oximetry 99 Oxygen Delivery 06/27/25 20:00 06/27/25 20:39 06/27/25 22:04 Temperature 97.6 F Pulse Rate 60 60 Respiratory Rate 18 Blood Pressure 152/60 H Pulse Oximetry 99 Oxygen Delivery Room Air 06/28/25 00:00 06/28/25 04:00 06/28/25 04:21 Temperature 97.3 F L Pulse Rate 59 L 58 L 65 Respiratory Rate 20 Blood Pressure 172/68 H Pulse Oximetry 100 Oxygen Delivery 06/28/25 06:36 Temperature Pulse Rate Respiratory Rate Blood Pressure 162/71 H Pulse Oximetry Oxygen Delivery Intake/Output Intake/Output: Intake & Output 06/25/25 06/26/25 06/27/25 06/28/25 23:59 23:59 23:59 23:59 Intake Total 1307.5 0 Output Total 0 0 Balance 1307.5 0 Meds/Results Medications: Active Medications Generic Name Dose Route Start Last Admin Trade Name Freq PRN Reason Stop Dose Admin Amlodipine Besylate 5 mg 06/27/25 09:00 06/27/25 10:42 Amlodipine Besylate 5 Mg Tablet BY MOUTH Not Given DAILY DARWIN Epoetin Nasir-epbx 20,000 units 06/28/25 18:00 Epoetin Nasir-Epbx 20,000 Units/Ml Vial IV PUSH 06/28/25 18:01 ONCE ONE Folic Acid 1 mg 06/27/25 09:00 06/27/25 09:43 Folic Acid 1 Mg Tablet BY MOUTH 1 mg DAILY DARWIN Administration Furosemide 80 mg 06/27/25 09:00 06/27/25 18:06 Furosemide 80 Mg Tablet BY MOUTH Not Given BID DARWIN Hydralazine HCl 25 mg 06/27/25 09:00 06/27/25 18:08 Hydralazine Hcl 25 Mg Tablet BY MOUTH Not Given TID DARWIN Levetiracetam 750 mg/ Dextrose 107.5 mls @ 430 mls/hr 06/27/25 22:35 06/27/25 23:20 IVPB Infused Q12HR DARWIN Infusion Albumin Human 50 mls @ 999 mls/hr 06/27/25 22:50 Albutein IVPB 07/27/25 22:49 Q10M PRN HYPOTENSION Isosorbide Mononitrate 30 mg 06/27/25 09:00 06/27/25 10:45 Isosorbide Mononitrate 30 Mg Tab.Er.24h PO 30 mg QAM DARWIN Administration Lactulose 30 gm 06/27/25 17:00 06/27/25 17:31 Lactulose 20 Gm/30 Ml Udc PO 30 gm BID DARWIN Administration Levetiracetam 750 mg 06/26/25 23:10 06/27/25 22:46 Levetiracetam 250 Mg Tablet PO Not Given On Hold: 06/27/25 22:36 Q12HR DARWIN Comment: on IV keppra while patient unable to take PO Melatonin 9 mg 06/27/25 21:00 Melatonin 3 Mg Tablet PO HS PRN sleep Nadolol 20 mg 06/27/25 09:00 06/27/25 18:06 Nadolol 20 Mg Tablet BY MOUTH Not Given DAILY DARWIN Ondansetron HCl 4 mg 06/27/25 16:38 Ondansetron Inj 4 Mg/2 Ml Vial IV PUSH Q6H PRN Nausea And Vomiting Pantoprazole Sodium 40 mg 06/27/25 22:35 06/27/25 22:58 Pantoprazole Sodium Iv 40 Mg Vial IV PUSH 40 mg Q12HR DARWIN Administration Sevelamer Carbonate 1,600 mg 06/27/25 08:00 06/27/25 18:05 Sevelamer Carbonate 800 Mg Tablet PO Not Given TIDWM DARWIN Sevelamer Carbonate 800 mg 06/26/25 23:40 06/27/25 00:08 Sevelamer Carbonate 800 Mg Tablet PO 800 mg PRN PRN Administration WITH SNACK Thiamine HCl 100 mg 06/27/25 09:00 06/27/25 09:42 Thiamine Hcl 100 Mg Tablet PO 100 mg QAM DARWIN Administration Radiology Results: ITS Impressions Head CT 06/26/25 17:32 IMPRESSION: 1. No acute intracranial abnormality. Chest X-Ray 06/26/25 17:37 IMPRESSION: 1: NO ACUTE CARDIOPULMONARY DISEASE. Chest/Abdomen/Pelvis CT 06/26/25 19:55 IMPRESSION: 1. No acute cardiopulmonary disease. 2: Cardiomegaly. 3: Cirrhosis of the liver with splenomegaly and markedly enlarged prostate gland or renal collaterals, consistent with portal venous hypertension. 4.: Trace ascites. 5: Nonobstructing bilateral nephrolithiasis. 6: Cholelithiasis. Labs Labs: Laboratory Results - last 24 hr 06/28/25 04:23 WBC 3.3 L RBC 2.77 L Hgb 9.2 L Hct 27.8 L MCV 100.4 H MCH 33.2 MCHC 33.1 RDW 14.4 Plt Count 19 L* MPV 12.2 H Sodium 136 L Potassium 5.3 H Chloride 101 Carbon Dioxide 27 Anion Gap 8 BUN 67 H D Creatinine 8.59 H Estim Creat Clear Calc 8 Estimated GFR 6 L Glucose 119 H Calcium 8.3 L Phosphorus 4.9 H Ammonia 187 H Albumin 3.4 L Quality VTE Prophylaxis VTE prophylaxis: mechanical ordered Hospitalist [facility] Advance Care Plan I have confirmed that the patient's Advanced Care Plan is present, code status is documented, or surrogate decision maker is listed in patient medical record.: Yes Medication Reconciliation I have utilized all available resources to obtain, update and review the patients current medications (includes all prescriptions, OTC, herbals, cannabis, and nutritional supplements).: Yes
--- NOTE | 2025-06-28 10:26 | P.PNGI_ITS ---
Progress Note: A&P Assessment and Plan (1) Thrombocytopenia: Code(s): D69.6 - Thrombocytopenia, unspecified Status: Acute (2) Acute hepatic encephalopathy: Code(s): K76.82 - Hepatic encephalopathy Status: Acute Plan 59 yr old male, h/o cirrhosis of liver secondary to etoh, esrd, on HD, came with change mental status, hepatic encephalopathy. plan 1- increase lactulose to 60,gm, po, tid. 2- order lfts foe am. Subjective Date/time seen: 06/28/25 10:26 Interval history: Plt 19. INR 1.5 06/26. Potassium 5.3. Ammonia 187 Potassium 5.3. Start lokelma BID. Add rifaximin? 59-year-old male patient who has a history of cirrhosis of the liver and end- stage renal disease on dialysis MWF, admitted for confusion. Ammonia 41. CT showed evidence of cirrhosis and portal venous HTN, cholelithiasis. Reported to be on the liver transplant list and has an outpatient appointment June 29. Outpatient leak gang supervisor is Dr. Norris. ? Review of Systems Review of Systems: all 11 review of symptoms are negative , except the ones mentioned in H and P. All systems reviewed & are unremarkable except as noted in HPI and below Exam Narrative: very lethargic, answer yes or no. Const: General: comfortable and no acute distress Eyes: Sclera: sclerae normal Neck: Neck: supple Resp: Auscultation: clear to auscultation bilaterally Cardio: Rate: regular rate GI: GI Palp: Yes Soft to palpation Auscultation: normal bowel sounds Objective Data Vital Signs Vital Signs: Vital Signs - 24 hr 06/27/25 12:00 06/27/25 14:00 06/27/25 16:00 Temperature 98.4 F Pulse Rate 64 61 57 L Respiratory Rate 61 H Blood Pressure 152/64 H Pulse Oximetry 99 Oxygen Delivery 06/27/25 16:00 06/27/25 20:00 06/27/25 20:39 Temperature 97.6 F Pulse Rate 75 60 60 Respiratory Rate 18 Blood Pressure 152/60 H Pulse Oximetry 99 Oxygen Delivery 06/27/25 22:04 06/28/25 00:00 06/28/25 04:00 Temperature Pulse Rate 59 L 58 L Respiratory Rate Blood Pressure Pulse Oximetry Oxygen Delivery Room Air 06/28/25 04:21 06/28/25 06:36 06/28/25 08:00 Temperature 97.3 F L Pulse Rate 65 Respiratory Rate 20 Blood Pressure 172/68 H 162/71 H Pulse Oximetry 100 Oxygen Delivery Room Air 06/28/25 08:00 Temperature Pulse Rate 72 Respiratory Rate Blood Pressure Pulse Oximetry Oxygen Delivery Intake/Output Intake/Output: Intake & Output 06/25/25 06/26/25 06/27/25 06/28/25 23:59 23:59 23:59 23:59 Intake Total 1307.5 0 Output Total 0 0 Balance 1307.5 0 Meds/Results Medications: Active Medications Generic Name Dose Route Start Last Admin Trade Name Freq PRN Reason Stop Dose Admin Amlodipine Besylate 5 mg 06/27/25 09:00 06/27/25 10:42 Amlodipine Besylate 5 Mg Tablet BY MOUTH Not Given DAILY DARWIN Epoetin Nasir-epbx 20,000 units 06/28/25 18:00 Epoetin Nasir-Epbx 20,000 Units/Ml Vial IV PUSH 06/28/25 18:01 ONCE ONE Folic Acid 1 mg 06/27/25 09:00 06/27/25 09:43 Folic Acid 1 Mg Tablet BY MOUTH 1 mg DAILY DARWIN Administration Furosemide 80 mg 06/27/25 09:00 06/27/25 18:06 Furosemide 80 Mg Tablet BY MOUTH Not Given BID DARWIN Hydralazine HCl 25 mg 06/27/25 09:00 06/27/25 18:08 Hydralazine Hcl 25 Mg Tablet BY MOUTH Not Given TID DARWIN Levetiracetam 750 mg/ Dextrose 107.5 mls @ 430 mls/hr 06/27/25 22:35 06/27/25 23:20 IVPB Infused Q12HR DARWIN Infusion Albumin Human 50 mls @ 999 mls/hr 06/27/25 22:50 Albutein IVPB 07/27/25 22:49 Q10M PRN HYPOTENSION Isosorbide Mononitrate 30 mg 06/27/25 09:00 06/27/25 10:45 Isosorbide Mononitrate 30 Mg Tab.Er.24h PO 30 mg QAM DARWIN Administration Lactulose 30 gm 06/27/25 17:00 06/27/25 17:31 Lactulose 20 Gm/30 Ml Udc PO 30 gm BID DARWIN Administration Levetiracetam 750 mg 06/26/25 23:10 06/27/25 22:46 Levetiracetam 250 Mg Tablet PO Not Given On Hold: 06/27/25 22:36 Q12HR [facility] Comment: on IV keppra while patient unable to take PO Melatonin 9 mg 06/27/25 21:00 Melatonin 3 Mg Tablet PO HS PRN sleep Nadolol 20 mg 06/27/25 09:00 06/27/25 18:06 Nadolol 20 Mg Tablet BY MOUTH Not Given DAILY DARWIN Ondansetron HCl 4 mg 06/27/25 16:38 Ondansetron Inj 4 Mg/2 Ml Vial IV PUSH Q6H PRN Nausea And Vomiting Pantoprazole Sodium 40 mg 06/27/25 22:35 06/27/25 22:58 Pantoprazole Sodium Iv 40 Mg Vial IV PUSH 40 mg Q12HR DARWIN Administration Sevelamer Carbonate 1,600 mg 06/27/25 08:00 06/27/25 18:05 Sevelamer Carbonate 800 Mg Tablet PO Not Given TIDWM DARWIN Sevelamer Carbonate 800 mg 06/26/25 23:40 06/27/25 00:08 Sevelamer Carbonate 800 Mg Tablet PO 800 mg PRN PRN Administration WITH SNACK Sodium Zirconium Cyclosilicate 10 gm 06/28/25 10:00 Sodium Zirconium Cyclosilicate 10 Gm Powd.Pack PO BID@1000,1800 [facility] Thiamine HCl 100 mg 06/27/25 09:00 06/27/25 09:42 Thiamine Hcl 100 Mg Tablet PO 100 mg QAM DARWIN Administration Radiology Results: ITS Impressions Head CT 06/26/25 17:32 IMPRESSION: 1. No acute intracranial abnormality. Chest X-Ray 06/26/25 17:37 IMPRESSION: 1: NO ACUTE CARDIOPULMONARY DISEASE. Chest/Abdomen/Pelvis CT 06/26/25 19:55 IMPRESSION: 1. No acute cardiopulmonary disease. 2: Cardiomegaly. 3: Cirrhosis of the liver with splenomegaly and markedly enlarged prostate gland or renal collaterals, consistent with portal venous hypertension. 4.: Trace ascites. 5: Nonobstructing bilateral nephrolithiasis. 6: Cholelithiasis. Labs Labs: Laboratory Results - last 24 hr 06/28/25 04:23 WBC 3.3 L RBC 2.77 L Hgb 9.2 L Hct 27.8 L MCV 100.4 H MCH 33.2 MCHC 33.1 RDW 14.4 Plt Count 19 L* MPV 12.2 H Sodium 136 L Potassium 5.3 H Chloride 101 Carbon Dioxide 27 Anion Gap 8 BUN 67 H D Creatinine 8.59 H Estim Creat Clear Calc 8 Estimated GFR 6 L Glucose 119 H Calcium 8.3 L Phosphorus 4.9 H Ammonia 187 H Albumin 3.4 L
--- NOTE | 2025-06-28 10:28 | WPDGIPROGNO ---
Subjective Date/time seen: 06/28/25 10:28 Interval history: Plt 19. INR 1.5 06/26. Potassium 5.3. Ammonia 187 Potassium 5.3. Start lokelma BID. Add rifaximin? 59-year-old male patient who has a history of cirrhosis of the liver and end-stage renal disease on dialysis MWF, admitted for confusion. Ammonia 41. CT showed evidence of cirrhosis and portal venous HTN, cholelithiasis. Reported to be on the liver transplant list and has an outpatient appointment June 29. Outpatient compliance vice president is Dr. Norris. ? today, patient is confused, very lethargic. no gi bleed. on lactulose 30, po, tid Objective Data Vital Signs Vital Signs: Vital Signs - 24 hr 06/27/25 12:00 06/27/25 14:00 06/27/25 16:00 Temperature 98.4 F Pulse Rate 64 61 57 L Respiratory Rate 61 H Blood Pressure 152/64 H Pulse Oximetry 99 Oxygen Delivery 06/27/25 16:00 06/27/25 20:00 06/27/25 20:39 Temperature 97.6 F Pulse Rate 75 60 60 Respiratory Rate 18 Blood Pressure 152/60 H Pulse Oximetry 99 Oxygen Delivery 06/27/25 22:04 06/28/25 00:00 06/28/25 04:00 Temperature Pulse Rate 59 L 58 L Respiratory Rate Blood Pressure Pulse Oximetry Oxygen Delivery Room Air 06/28/25 04:21 06/28/25 06:36 06/28/25 08:00 Temperature 97.3 F L Pulse Rate 65 Respiratory Rate 20 Blood Pressure 172/68 H 162/71 H Pulse Oximetry 100 Oxygen Delivery Room Air 06/28/25 08:00 Temperature Pulse Rate 72 Respiratory Rate Blood Pressure Pulse Oximetry Oxygen Delivery Intake/Output Intake/Output: Intake & Output 06/25/25 06/26/25 06/27/25 06/28/25 23:59 23:59 23:59 23:59 Intake Total 1307.5 0 Output Total 0 0 Balance 1307.5 0 Meds/Results Medications: Active Medications Generic Name Dose Route Start Last Admin Trade Name Freq PRN Reason Stop Dose Admin Amlodipine Besylate 5 mg 06/27/25 09:00 06/27/25 10:42 Amlodipine Besylate 5 Mg Tablet BY MOUTH Not Given DAILY DARWIN Epoetin Nasir-epbx 20,000 units 06/28/25 18:00 Epoetin Nasir-Epbx 20,000 Units/Ml Vial IV PUSH 06/28/25 18:01 ONCE ONE Folic Acid 1 mg 06/27/25 09:00 06/27/25 09:43 Folic Acid 1 Mg Tablet BY MOUTH 1 mg DAILY DARWIN Administration Furosemide 80 mg 06/27/25 09:00 06/27/25 18:06 Furosemide 80 Mg Tablet BY MOUTH Not Given BID DARWIN Hydralazine HCl 25 mg 06/27/25 09:00 06/27/25 18:08 Hydralazine Hcl 25 Mg Tablet BY MOUTH Not Given TID DARWIN Levetiracetam 750 mg/ Dextrose 107.5 mls @ 430 mls/hr 06/27/25 22:35 06/27/25 23:20 IVPB Infused Q12HR [facility]ARWIN Infusion Albumin Human 50 mls @ 999 mls/hr 06/27/25 22:50 Albutein IVPB 07/27/25 22:49 Q10M PRN HYPOTENSION Isosorbide Mononitrate 30 mg 06/27/25 09:00 06/27/25 10:45 Isosorbide Mononitrate 30 Mg Tab.Er.24h PO 30 mg QAM DARWIN Administration Lactulose 30 gm 06/27/25 17:00 06/27/25 17:31 Lactulose 20 Gm/30 Ml Udc PO 30 gm BID DARWIN Administration Levetiracetam 750 mg 06/26/25 23:10 06/27/25 22:46 Levetiracetam 250 Mg Tablet PO Not Given On Hold: 06/27/25 22:36 Q12HR [facility] Comment: on IV keppra while patient unable to take PO Melatonin 9 mg 06/27/25 21:00 Melatonin 3 Mg Tablet PO HS PRN sleep Nadolol 20 mg 06/27/25 09:00 06/27/25 18:06 Nadolol 20 Mg Tablet BY MOUTH Not Given DAILY [facility] Ondansetron HCl 4 mg 06/27/25 16:38 Ondansetron Inj 4 Mg/2 Ml Vial IV PUSH Q6H PRN Nausea And Vomiting Pantoprazole Sodium 40 mg 06/27/25 22:35 06/27/25 22:58 Pantoprazole Sodium Iv 40 Mg Vial IV PUSH 40 mg Q12HR [facility]ARWIN Administration Sevelamer Carbonate 1,600 mg 06/27/25 08:00 06/27/25 18:05 Sevelamer Carbonate 800 Mg Tablet PO Not Given TIDWM DARWIN Sevelamer Carbonate 800 mg 06/26/25 23:40 06/27/25 00:08 Sevelamer Carbonate 800 Mg Tablet PO 800 mg PRN PRN Administration WITH SNACK Sodium Zirconium Cyclosilicate 10 gm 06/28/25 10:00 Sodium Zirconium Cyclosilicate 10 Gm Powd.Pack PO BID@1000,1800 [facility] Thiamine HCl 100 mg 06/27/25 09:00 06/27/25 09:42 Thiamine Hcl 100 Mg Tablet PO 100 mg QAM DARWIN Administration Radiology Results: ITS Impressions Head CT 06/26/25 17:32 IMPRESSION: 1. No acute intracranial abnormality. Chest X-Ray 06/26/25 17:37 IMPRESSION: 1: NO ACUTE CARDIOPULMONARY DISEASE. Chest/Abdomen/Pelvis CT 06/26/25 19:55 IMPRESSION: 1. No acute cardiopulmonary disease. 2: Cardiomegaly. 3: Cirrhosis of the liver with splenomegaly and markedly enlarged prostate gland or renal collaterals, consistent with portal venous hypertension. 4.: Trace ascites. 5: Nonobstructing bilateral nephrolithiasis. 6: Cholelithiasis. Labs Labs: Laboratory Results - last 24 hr 06/28/25 04:23 WBC 3.3 L RBC 2.77 L Hgb 9.2 L Hct 27.8 L MCV 100.4 H MCH 33.2 MCHC 33.1 RDW 14.4 Plt Count 19 L* MPV 12.2 H Sodium 136 L Potassium 5.3 H Chloride 101 Carbon Dioxide 27 Anion Gap 8 BUN 67 H D Creatinine 8.59 H Estim Creat Clear Calc 8 Estimated GFR 6 L Glucose 119 H Calcium 8.3 L Phosphorus 4.9 H Ammonia 187 H Albumin 3.4 L
--- NOTE | 2025-06-28 11:45 | P.PNNP_ITS ---
Progress Note: A&P Assessment and Plan (1) End stage renal disease: Code(s): N18.6 - End stage renal disease Status: Inactive Assessment and Plan: * HD today * continue holiday (/) dialysis schedule of Sunday/Sunday/Sunday this week while hospitalized * follow electrolytes, volume status, and clearance (2) Altered mental status: Qualifiers: Altered mental status type: unspecified Qualified Code(s): R41.82 - Altered mental status, unspecified Code(s): R41.82 - Altered mental status, unspecified Status: Acute Assessment and Plan: * clinical deterioration noted in the last 24 hours (more confused and lethargic) * improvement already noted by arrival to ER * presumably due to hepatic encephalopathy: * worsening ammonia level noted this AM * on lactulose enemas * CT of head negative * history of seizure disorder * on IV Keppra * follow mentation (3) Cirrhosis: Qualifiers: Ascites presence: without ascites Hepatic cirrhosis type: alcoholic cirrhosis Qualified Code(s): K70.30 - Alcoholic cirrhosis of liver without ascites Code(s): K74.60 - Unspecified cirrhosis of liver Status: Acute Assessment and Plan: * known history * has been sober for the last 2 - 3 years * continue lactulose * GI recommendations noted (4) Hypertension: Qualifiers: Hypertension type: primary hypertension Qualified Code(s): I10 - E ssential (primary) hypertension Code(s): I10 - Essential (primary) hypertension Status: Chronic Assessment and Plan: * reasonable control * follow trend of hemodynamics (5) Anemia: Code(s): D64.9 - Anemia, unspecified Status: Chronic Assessment and Plan: * due to ESRD with contributions from liver disease * Epogen with HD * follow trend of H/H (6) Pancytopenia: Code(s): D61.818 - Other pancytopenia Status: Acute Assessment and Plan: * somewhat of a chronic issue * thought to be secondary to liver disease * anemia further complicated by ESRD Will continue to follow. Subjective Date/time seen: 06/28/25 11:45 Interval history: Follow-up for end stage renal disease on hemodialysis. Tolerating dialysis treatment at the time of my visit (seen on HD at 11:35am); significant decline in mental status since I saw him yesterday -- reported worsening confusion overnight with noted somnolence/lethargy this AM and currently; not following commands or able to give oral medications. Exam Narrative: General: WD/WN male in NAD but lethargic/somnolent Heart: normal S1 and S2; no rub Lungs: clear anteriorly Abdomen: soft, nontender, nondistended, positive bowel sounds Extremities: no cyanosis or clubbing; no edema Skin: warm and dry Objective Data Vital Signs Vital Signs: Vital Signs Temp Pulse Resp BP Pulse Ox O2 Del Method 06/28/25 11:45 68 169/84 H 06/28/25 11:30 70 161/78 H 06/28/25 11:15 63 148/64 H 06/28/25 11:00 61 142/63 H 06/28/25 10:45 61 143/63 H 06/28/25 10:30 66 158/58 H 06/28/25 10:15 59 L 134/60 06/28/25 10:00 62 141/61 H 06/28/25 09:52 57 L 145/58 H 06/28/25 09:31 58 L 147/60 H 06/28/25 08:55 98.2 F 61 16 131/59 L 98 06/28/25 08:00 72 06/28/25 08:00 Room Air 06/28/25 06:36 162/71 H 06/28/25 04:21 97.3 F L 65 20 172/68 H 100 06/28/25 04:00 58 L 06/28/25 00:00 59 L 06/27/25 22:04 Room Air 06/27/25 20:39 97.6 F 60 18 152/60 H 99 06/27/25 20:00 60 06/27/25 16:00 75 06/27/25 16:00 57 L Intake/Output Intake/Output: Intake & Output 06/25/25 06/26/25 06/27/25 06/28/25 23:59 23:59 23:59 23:59 Intake Total 1307.5 0 Output Total 0 1500 Balance 1307.5 -1500 Meds/Results Medications: Active Medications Generic Name Dose Route Start Last Admin Trade Name Freq PRN Reason Stop Dose Admin Amlodipine Besylate 5 mg 06/27/25 09:00 06/27/25 10:42 Amlodipine Besylate 5 Mg Tablet BY MOUTH Not Given DAILY DARWIN Epoetin Nasir-epbx 20,000 units 06/28/25 18:00 06/28/25 11:57 Epoetin Nasir-Epbx 20,000 Units/Ml Vial IV PUSH 06/28/25 18:01 20,000 units ONCE ONE Administration Folic Acid 1 mg 06/27/25 09:00 06/27/25 09:43 Folic Acid 1 Mg Tablet BY MOUTH 1 mg DAILY DARWIN Administration Furosemide 80 mg 06/27/25 09:00 06/27/25 18:06 Furosemide 80 Mg Tablet BY MOUTH Not Given BID DARWIN Hydralazine HCl 25 mg 06/27/25 09:00 06/27/25 18:08 Hydralazine Hcl 25 Mg Tablet BY MOUTH Not Given TID [facility] Levetiracetam 750 mg/ Dextrose 107.5 mls @ 430 mls/hr 06/27/25 22:35 06/27/25 23:20 IVPB Infused Q12HR [facility] Infusion Albumin Human 50 mls @ 999 mls/hr 06/27/25 22:50 Albutein IVPB 07/27/25 22:49 Q10M PRN HYPOTENSION Isosorbide Mononitrate 30 mg 06/27/25 09:00 06/27/25 10:45 Isosorbide Mononitrate 30 Mg Tab.Er.24h PO 30 mg QAM DARWIN Administration Lactulose 60 gm 06/28/25 13:00 Lactulose 20 Gm/30 Ml Udc PO TID DARWIN Levetiracetam 750 mg 06/26/25 23:10 06/27/25 22:46 Levetiracetam 250 Mg Tablet PO Not Given On Hold: 06/27/25 22:36 Q12HR DARWIN Comment: on IV keppra while patient unable to take PO Melatonin 9 mg 06/27/25 21:00 Melatonin 3 Mg Tablet PO HS PRN sleep Nadolol 20 mg 06/27/25 09:00 06/27/25 18:06 Nadolol 20 Mg Tablet BY MOUTH Not Given DAILY [facility] Ondansetron HCl 4 mg 06/27/25 16:38 Ondansetron Inj 4 Mg/2 Ml Vial IV PUSH Q6H PRN Nausea And Vomiting Pantoprazole Sodium 40 mg 06/27/25 22:35 06/27/25 22:58 Pantoprazole Sodium Iv 40 Mg Vial IV PUSH 40 mg Q12HR DARWIN Administration Rifaximin 550 mg 06/28/25 21:00 Rifaximin 550 Mg Tablet PO Q12HR DARWIN Sevelamer Carbonate 1,600 mg 06/27/25 08:00 06/27/25 18:05 Sevelamer Carbonate 800 Mg Tablet PO Not Given TIDWM DARWIN Sevelamer Carbonate 800 mg 06/26/25 23:40 06/27/25 00:08 Sevelamer Carbonate 800 Mg Tablet PO 800 mg PRN PRN Administration WITH SNACK Thiamine HCl 100 mg 06/27/25 09:00 06/27/25 09:42 Thiamine Hcl 100 Mg Tablet PO 100 mg QAM DARWIN Administration Radiology Results: ITS Impressions Head CT 06/26/25 17:32 IMPRESSION: 1. No acute intracranial abnormality. Chest/Abdomen/Pelvis CT 06/26/25 19:55 IMPRESSION: 1. No acute cardiopulmonary disease. 2: Cardiomegaly. 3: Cirrhosis of the liver with splenomegaly and markedly enlarged prostate gland or renal collaterals, consistent with portal venous hypertension. 4.: Trace ascites. 5: Nonobstructing bilateral nephrolithiasis. 6: Cholelithiasis. Chest X-Ray 06/28/25 15:23 IMPRESSION: 1. Limited evaluation due to artifact. No definite acute pulmonary findings. Atherosclerotic aorta. Abdomen X-Ray 06/28/25 15:24 IMPRESSION: 1. Satisfactory positioning of nasogastric tube within the stomach. Labs Labs: Laboratory Results 06/28/25 04:23 WBC 3.3 L Hgb 9.2 L Hct 27.8 L Plt Count 19 L* Sodium 136 L Potassium 5.3 H Chloride 101 Carbon Dioxide 27 Anion Gap 8 BUN 67 H D Creatinine 8.59 H Estim Creat Clear Calc 8 Estimated GFR 6 L Glucose 119 H Calcium 8.3 L Phosphorus 4.9 H Ammonia 187 H Albumin 3.4 L
[2025-06-28] MEDS: EPOETIN ALFA-EPBX 20,000 UNITS/ML VIAL 20000 UNITS IV PUSH (11:57)
[2025-06-28 14:34] LABS: Alveolar/Arterial O2 Gradient 40.7 mmHg; Fractional Inspired Oxygen 21 %; HCO3 ABG 27.6 mEq/l (22.0-26.0); Oxygen Content ABG 14.4 %vol (16.0-22.0); Oxygen Saturation ABG 95.1 % (95.0-100.0); PCO2 ABG 34.9 mmHg (35.0-45.0); PO2 ABG 67.2 mmHg (80.0-100.0); PO2 FiO2 Ratio Arterial Blood 3.20 %
[2025-06-28 14:37] LABS: Modified Allen's Test Pass; Site Drawn RIGHT RADIAL
[2025-06-28 14:57] LABS: Hematocrit 29.5 % (42.0-52.0); Hemoglobin 10.2 g/dL (14.0-18.0); Immature Granulocyte Percent A 0.3 % (0-0.5); Immature Platelet Fraction Pct 3.6 % (0.9-11.2); Lymphocytes Absolute Auto 0.72 K/mm3 (0.9-3.2); Mean Corpuscular HGB Conc 34.6 g/dl (32-36); Mean Corpuscular Hemoglobin 33.7 pg (26-34); Mean Corpuscular Volume 97.4 fl (80-100); Nucleated Red Blood Cells Absolute Auto 0.000 K/mm3 (0.0-0.012); Nucleated Red Blood Cells Perc 0.0 % (0.0-0.2); Platelet Count Result 25 k/mm3 (150-375); Red Blood Count 3.03 M/mm3 (4.6-6.20); White Blood Count 3.7 K/mm3 (4.5-10.0)
[2025-06-28 15:00] LABS: Ammonia 26 umol/L (9-30)
[2025-06-28 15:08] LABS: Fibrinogen 156 mg/dl (215-510); Partial Thromboplastin Time 34.7 Seconds (22.3-36.8)
[2025-06-28 15:09] LABS: INR 1.5; Prothrombin Time 17.8 Seconds (11.1-14.7)
[2025-06-28 15:13] LABS: Alanine Aminotransferase 21 U/L (6-50); Albumin Level 3.7 g/dL (3.5-5.1); Alkaline Phosphatase 148 U/L (38-126); Anion Gap 9 mmol/L (4-12); Aspartate Amino Transferase 35 U/L (17-59); Bilirubin,Total 2.4 mg/dL (0.2-1.3); Blood Urea Nitrogen 23 mg/dL (9-20); Calcium 9.5 mg/dL (8.4-10.2); Carbon Dioxide 29 mmol/L (22-30); Chloride 101 mmol/L (98-107); Estimated CRCL calculation 21 ml/min; Estimated Glomerular Filt Rate 18; Glucose 132 mg/dL (65-110); Magnesium 2.1 mg/dL (1.6-2.3); Potassium 3.5 mmol/L (3.4-5.0); Sodium 139 mmol/L (137-145); Total Protein 6.9 g/dL (6.3-8.2)
[2025-06-28 15:42] LABS: Hepatitis B Surface Antigen Negative (Negative)
[2025-06-28 15:48] LABS: HAV RESULT Negative (Negative); Hepatitis B Core IgM Result Negative (Negative)
[2025-06-28 15:51] LABS: HIV 1/2 Ab P24 Ag Result Negative (Negative)
[2025-06-28] MEDS: LACTULOSE 20 GM/30 ML UDC 60 GM FEED TUBE (16:06)
[2025-06-28] MEDS: SEVELAMER CARBONATE 800 MG TABLET 1600 MG PO (17:15)
[2025-06-28] MEDS: FUROSEMIDE 80 MG TABLET BY MOUTH (17:17)
--- NOTE | 2025-06-28 21:55 | PC.NURSE ---
Pt is of sound mind and wishes to leave AMA provider candi kelly notified and pts josee Ministerio is here to pick him up.
--- NOTE | 2025-06-28 22:33 | PC.NURSE ---
IV and NG both removed
--- NOTE | 2025-06-29 02:21 | PM.EVENT ---
Event Note Event Note Event Note: The patient is alert and orientated to person place and time. His friend is at the bedside. His caregiver stated that he was going to take the patient home. The patient stated that he needs to sign out against medical advice because he has an appointment tomorrow with his transplant team for liver and kidney. The patient was able to answer questions appropriately and wanted to sign out against medical advice. Nursing staff removed all lines and tubes. The patient dressed himself and signed out against medical advice. I spoke with the patient and explained that it he needed to stay overnight to monitor ammonia level. Patient stated that he has lactulose at home and will take the regular dose of 60 g 3 times a day.
--- NOTE | 2025-06-29 02:23 | P.PNCROSS_ITS ---
Event Note Event Note Event Note: This is a 59-year-old male patient who has a paddle renal syndrome. He has end- stage renal disease and is on dialysis Sunday typically however due to the holidays he has been on a different schedule. The patient did have dialysis on Sunday. The patient was admitted here for hepatic encephalopathy. His ammonia levels were elevated. The patient is now awake and alert and orientated to person place and time. His caregivers at the bedside. Patient stated that he has an appointment with his transplant team tomorrow. Patient stated that he can no longer stay here and needs to leave to meet up with his transplant team tomorrow. I explained that the patient needed to stay overnight to monitor ammonia levels. However the patient declined to stay overnight and stated that he needed to sign out against medical advice. The patient stated that he has lactulose at home and will take this 60 g 3 times a day. The patient stated that his caregiver will monitor him and if they need to return within the next day or 2 then he will be back. The nursing staff removed all lines and tubes. Patient dressed himself and signed out against medical advice.
[2025-06-30 07:09] LABS: GGT 97 IU/L (0-65)
== END 2025-06-28 22:10 | disposition left against medical advice (07) | DRG 441 ==
LOC: ANHED 17:34 → ANH3MEDSUR 21:16 → ANH2MED 21:32 → ANHIMU 06-30 11:48
PROVIDERS: Internal Medicine Nephrology; Nurse Practitioner Acute Care; Admitting Provider Internal Medicine; Emergency Provider Physician Assistant; PCP Internal Medicine; Visit Provider Nurse Practitioner
DX: K76.82 Hepatic encephalopathy (principal); N18.6 End stage renal disease; D61.818 Other pancytopenia; I85.10 Secondary esophageal varices without bleeding; I12.0 Hypertensive chronic kidney disease with stage 5 chronic kidney disease or end stage renal disease; E87.3 Alkalosis; K70.30 Alcoholic cirrhosis of liver without ascites; D63.1 Anemia in chronic kidney disease; G40.909 Epilepsy, unspecified, not intractable, without status epilepticus; I35.2 Nonrheumatic aortic (valve) stenosis with insufficiency; Z20.822 Contact with and (suspected) exposure to COVID-19; F12.90 Cannabis use, unspecified, uncomplicated; F10.11 Alcohol abuse, in remission; Z99.2 Dependence on renal dialysis
CPT/HCPCS: 36415; 36600; 70450; 71045; 71250; 74176; 80048; 80053; 80069; 80074; 80076; 82140; 82805; 82948; 82977; 83735; 85018; 85025; 85027; 85055; 85384; 85610; 85730; 86703; 86850; 86900; 86901; 87040; 87637; 87641; 93005; 96374; 96375; 96376; 99285; A9270; G0257; G0378; G0432; J0360; J1953; J2060; J2470; J7030; Q5105